=== PATIENT | female | born 1960 | race Caucasian/White ===

== ENCOUNTER 2022-12-14 14:55 | Outpatient (OUT) | payer BC, MEDICARE, SELFPAY ==
--- NOTE | 2022-12-14 17:23 | MISC_ITS ---
PROCEDURE DATE: ??12/14/2022 PROCEDURE:? Right biceps trigger point injection. PREOPERATIVE DIAGNOSIS:? Pain secondary to spasm right biceps.? Patient also suffers from rotator cuff tear involving the infraspinatus muscle on the right side.? POSTOPERATIVE DIAGNOSIS:? Pain secondary to spasm right biceps.? Patient also suffers from rotator cuff tear involving the infraspinatus muscle on the right side.? SOLUTION USED FOR INJECTION:? 2 mL of 2% lidocaine, 2 mL of 0.25% Marcaine, 10 mg of Kenalog, total of 5 mL, and 1 mL was used for the injection. IMMEDIATE COMPLICATIONS:? None. PROCEDURE:? After informed consent was obtained from the patient, placed in the supine position.? Skin overlying the area was prepped with alcohol.? A 25 gauge, 1 ? inch needle was inserted over the area of the right biceps muscle.? Needle tip advanced until there was a mild twitch response, at which point we injected 1 mL of solution.? No indication of intravascular or intraneural needle tip placement or injection was noted.? Post procedure, she reports reduction in her pain symptoms. MANA
== END 2022-12-14 14:56 ==
PROVIDERS: PCP Internal Medicine; Visit Provider Anesthesiology Pain Medicine
DX: M62.838 Other muscle spasm (principal); M75.101 Unspecified rotator cuff tear or rupture of right shoulder, not specified as traumatic
CPT/HCPCS: 20552

== ENCOUNTER 2023-03-16 13:32 | Outpatient (OUT) | payer BC, MEDICARE, SELFPAY ==
--- NOTE | 2023-03-16 13:36 | P.CN_ITS ---
Consult Note: HPI Data of Consult Patient: known to practice within the last 3 years Requesting Physician: Veronique Yu NP Primary Care Provider: John Mcdaniels DO Consult Narrative Reason for consult: f/u Narrative: Cate Obrien presents to office for evaluation of chronic back, neck, and right shoulder pain. Patient planning to have shoulder surgery 04/06. Today rating her pain 6/10 today. Has noticed increase in chronic pain and would like to discuss trialing percocet again. cc:: CC: Veronique Yu NP Review of Systems ROS Status of ROS 10 or more systems reviewed and unremarkable except as noted in history and below Musculoskeletal Reports: back pain, joint pain and limited range of motion Meds Home Medications and Allergies Home Medications Medication Instructions Recorded Confirmed Type bupropion HCl 150 mg tablet,12 hr 150 mg PO DAILY 12/15/22 12/15/22 History sustained-release (Wellbutrin SR) calcium PO .qd 12/15/22 History citalopram 20 mg tablet (Celexa) 20 mg PO DAILY 12/15/22 12/15/22 History hydrocodone 5 mg-acetaminophen 325 1 tab PO TID PRN pain 12/15/22 12/15/22 History mg tablet leflunomide 10 mg tablet (Arava) 10 mg PO DAILY 12/15/22 12/15/22 History lisinopril 5 mg tablet 5 mg PO DAILY 12/15/22 12/15/22 History metoprolol succinate 25 mg 25 mg PO DAILY 12/15/22 12/15/22 History tablet,extended release 24 hr (Toprol XL) pregabalin 150 mg capsule (Lyrica) 150 mg PO BID 12/15/22 12/15/22 History tizanidine 4 mg capsule (Zanaflex) 4 mg PO TID PRN muscle spasticity 12/15/22 12/15/22 History upadacitinib 15 mg tablet,extended 15 mg PO DAILY 12/15/22 12/15/22 History release 24 hr (Rinvoq) Allergies Allergy/AdvReac Type Severity Reaction Status Date / Time No Known Drug Allergies Allergy Verified 12/15/22 09:27 Exam Constitutional Documenting provider has reviewed patient's vital signs: yes Common normals: no apparent distress, average body habitus, oriented x3, healthy appearing, alert and well nourished General appearance: cooperative HENMT Common normals: normocephalic, hearing grossly normal bilaterally and moist oral mucous membranes Head and scalp: normocephalic Eye Common normals: PERRL Pupil: PERRL Neck & C-Spine Common normals: full ROM General: normal visual inspection Chest Common normals: inspection of chest normal Respiratory Common normals: normal respiratory effort, no retractions and no use of accessory muscles Back & Pelvis Lumbar spine/lower back: ROM limited, pain with ROM and straight leg raise negative bilaterally Other: positive facet loading bilaterally. predominately axial back pain without radiculopathy Extremity Right upper extremity: shoulder joint (pain, limited ROM. ) Neuro Common normals: oriented x3, CN's II-XII intact bilaterally, moves all extremities, no focal motor deficits, no sensory deficits noted and deep tendon reflexes 2+ bilaterally Sensorium/orientation: alert Gait (neuro): normal gait Motor exam: no movement abnormalities noted and strength abnormal (weakness 4/5 in RUE) Psych Common normals: mental status grossly normal, thought process normal, cooperative, affect normal, speech normal and activity/motor behavior normal Speech: normal speech Thought process: normal thought process Results Additional Findings Additional findings: I have checked an [place] report on this patient today and there are no aberrancies noted in the prescribing history.?? A drug screen was completed and reviewed within the last year, and if there has not been a drug screen completed we ordered one today to monitor higher risk, state monitored pain medication use. As part of providing excellent, safe, comprehensive care, the following was completed at our patient's visit: 1. A medication reconciliation and review to ensure accurate knowledge of current/active medications, including asking our patients to inform us about any [id number] medications or herbal remedies/nutritional supp lements/alternative remedies. 2. A review to specifically ensure our patients have had annual screening for: elevated body mass index (BMI), tobacco use, screening for depression, and screening for unhealthy alcohol use. When screening is concerning, patients are provided with education and the specific recommendation to discuss the concerning health issue and treatment options with their primary care provider. Assessment and Plan Assessment and Plan (1) Osteoarthritis of right shoulder: (2) Lumbar spondylosis: (3) Chronic, continuous use of opioids: Assessment and Plan: I have refilled the patient's opioid prescriptions at the above noted dose and schedule.? I feel these medications are improving the patient's quality of life and allow them to tolerate activities of daily living as well as participate in recreational activity.? The patient does not report intolerable side effects. The patient is NOT opioid naive and non-pharmacologic and non-opioid treatment has failed to significantly relieve the patient's pain and improve functionality. The patient has a diagnosis that is related to a somatic or visceral pain etiology. ? ?? I reviewed with the patient the potential risks and side effects with the use of? opioid medications including but not limited to respiratory depression,? sedation, and even . I verified the patient has access to naloxone should? these effects occur. I advised the patient to avoid the use of any other? sedation substances including alcohol, THC, and benzodiazepines while? taking opioid medications due to the risk of compounding side effects and? detrimental outcomes. I reviewed the [employer], pain treatment agreement, urine? drug screen, and opioid start talking forms. The patient was advised to let? their family know they had Naloxone in case they would need to administer? the medication.? ?? A drug screen was completed within the last year, and no aberrancies were noted regarding their use of controlled substances. The patient understands they are subject to the terms and conditions of the pain contract that they have signed. ? ?? I have checked an [place] report on this patient today and there are no aberrancies noted in the prescribing history.? NO side effects from current medication regimen, feels like she is no longer benefiting from norco 5-325 TID as well as she used to. Plan opioid rotation to oxycodone-acetaminophen 5-325mg TID PRN pain for 3 week fill to get her to shoulder surgery stephanie discussed and prescribed shoulder surgery 04/[address] Barron, he is to manage post op care continue lyrica and zanaflex, will consider adjusting lyrica if chronic pain not controlled by opioid rotation f/u 2 months
== END 2023-03-16 13:33 | disposition home or self-care (01) ==
PROVIDERS: PCP Internal Medicine; Visit Provider Nurse Practitioner
DX: M47.816 Spondylosis without myelopathy or radiculopathy, lumbar region (principal); M19.011 Primary osteoarthritis, right shoulder; Z79.891 Long term (current) use of opiate analgesic
CPT/HCPCS: G0463

== ENCOUNTER 2023-05-18 07:49 | Outpatient (OUT) | payer BC, MEDICARE, SELFPAY ==
--- NOTE | 2023-05-18 08:04 | PM.CN ---
Consult Note: HPI Data of Consult Patient: known to practice within the last 3 years Requesting Physician: Veronique Yu NP Primary Care Provider: John Mcdaniels DO Consult Narrative Reason for consult: f/u Narrative: Radha Obrien a pleasant 62 year old female presents for evaluation and management of low back pain. Today rating pain 5/10 in low back without radiculopathy. Patient has had >1 year pain relief and functional improvement from lumbar RFAs in 2019. Patient recently had right shoulder surgery and is doing well, Dr Barron managing post operative pain at this time. Patient would like to repeat lumbar thermal RFA in the near future. cc:: CC: Veronique Yu NP Review of Systems ROS Status of ROS 10 or more systems reviewed and unremarkable except as noted in history and below Musculoskeletal Reports: back pain Meds Home Medications and Allergies Home Medications Medication Instructions Recorded Confirmed Type bupropion HCl 150 mg tablet,12 hr 150 mg PO DAILY 12/15/22 12/15/22 History sustained-release (Wellbutrin SR) calcium PO .qd 12/15/22 History citalopram 20 mg tablet (Celexa) 20 mg PO DAILY 12/15/22 12/15/22 History hydrocodone 5 mg-acetaminophen 325 1 tab PO TID PRN pain 12/15/22 12/15/22 History mg tablet leflunomide 10 mg tablet (Arava) 10 mg PO DAILY 12/15/22 12/15/22 History lisinopril 5 mg tablet 5 mg PO DAILY 12/15/22 12/15/22 History metoprolol succinate 25 mg 25 mg PO DAILY 12/15/22 12/15/22 History tablet,extended release 24 hr (Toprol XL) pregabalin 150 mg capsule (Lyrica) 150 mg PO BID 12/15/22 12/15/22 History tizanidine 4 mg capsule (Zanaflex) 4 mg PO TID PRN muscle spasticity 12/15/22 12/15/22 History upadacitinib 15 mg tablet,extended 15 mg PO DAILY 12/15/22 12/15/22 History release 24 hr (Rinvoq) naloxone 4 mg/actuation nasal 4 mg intranasal Q3M PRN opioid 03/16/23 Rx spray (Narcan) overdose #2 ea oxycodone-acetaminophen 5 mg-325 1 tab PO TID PRN pain #63 tabs 03/16/23 Rx mg tablet (Percocet) oxycodone-acetaminophen 5 mg-325 1 tab PO TID PRN pain #63 tabs 03/16/23 Rx mg tablet (Percocet) pregabalin 150 mg capsule 150 mg PO BID #180 caps 03/31/23 Rx Allergies Allergy/AdvReac Type Severity Reaction Status Date / Time No Known Drug Allergies Allergy Verified 12/15/22 09:27 Exam Constitutional Documenting provider has reviewed patient's vital signs: yes Common normals: no apparent distress, oriented x3, healthy appearing, alert and well nourished General appearance: cooperative HENMT Common normals: normocephalic, hearing grossly normal bilaterally and moist oral mucous membranes Head and scalp: normocephalic Eye Common normals: PERRL Pupil: PERRL Neck & C-Spine Common normals: full ROM General: normal visual inspection Chest Common normals: inspection of chest normal Respiratory Common normals: normal respiratory effort, no retractions and no use of accessory muscles Back & Pelvis Lumbar spine/lower back: ROM limited, pain with ROM and straight leg raise negative bilaterally Other: positive facet loading bilaterally. predominately axial back pain without radiculopathy Neuro Common normals: oriented x3, CN's II-XII intact bilaterally, moves all extremities, no focal motor deficits, no sensory deficits noted and deep tendon reflexes 2+ bilaterally Sensorium/orientation: alert Gait (neuro): normal gait Motor exam: strength 5/5 throughout and no movement abnormalities noted Psych Common normals: mental status grossly normal, thought process normal, cooperative, affect normal, speech normal and activity/motor behavior normal Speech: normal speech Thought process: normal thought process Results Additional Findings Additional findings: I have checked an [place] report on this patient today and there are no aberrancies noted in the prescribing history.?? A drug screen was completed and reviewed within the last year, and if there has not been a drug screen completed we ordered one today to monitor higher risk, state monitored pain medication use. As part of providing excellent, safe, comprehensive care, the following was completed at our patient's visit: 1. A medication reconciliation and review to ensure accurate knowledge of current/active medications, including asking our patients to inform us about any [id number] medications or herbal remedies/nutritional supplements/alternative remedies. 2. A review to specifically ensure our patients have had annual screening for: elevated body mass index (BMI), tobacco use, screening for depression, and screening for unhealthy alcohol use. When screening is concerning, patients are provided with education and the specific recommendation to discuss the concerning health issue and treatment options with their primary care provider. Assessment and Plan Assessment and Plan (1) Lumbar spondylosis: Assessment and Plan: The patient has had over 3 months of moderate to severe low back pain with functional impairment and inadequate response to conservative care including NSAIDS (unless there are contraindication such as concurrent blood thinners), multiple oral or topical pain medications, and home exercise program/physical therapy.? Patient has completed >6 weeks of guided home exercise program and/or formal physical therapy program without relief of their symptoms.? I have reviewed the imaging of the lumbar spine and no red flags were identified.? The imaging reveals radiographic findings consistent with lumbar spondylosis We discussed the risks and benefits of the procedure with the patient, and we are NOT planning on using sedation as outlined in the guidelines from Medicare unless there is a documented reason that sedation would be strongly recommended.?? ?The procedure will be completed with fluoroscopic guidance.? (2) Chronic, continuous use of opioids: Assessment and Plan: surgeon currently managing post op pain Plan bilateral L4-5 L5-S1 mbb X2 under fluoroscopy working towards thermal RFA (patient will call to schedule) continue current medication regimen, tolerating well without side effects we will resume opioid management after cleared by surgeon f/u 1 week after each test block to evaluate effectiveness
== END 2023-05-18 07:50 | disposition home or self-care (01) ==
LOC: PM 07:49
PROVIDERS: PCP Internal Medicine; Visit Provider Nurse Practitioner
DX: M47.816 Spondylosis without myelopathy or radiculopathy, lumbar region (principal); Z79.891 Long term (current) use of opiate analgesic
CPT/HCPCS: G0463

== ENCOUNTER 2023-06-14 15:05 | Outpatient (OUT) | payer BC, MEDICARE, SELFPAY ==
[2023-06-14 16:50] LABS: Alanine Aminotransferase 19 U/L (14-59); Albumin Level 3.7 g/dL (3.4-5.0); Alkaline Phosphatase 63 U/L (46-116); Aspartate Amino Transferase 16 U/L (15-37); Bilirubin Total 0.4 mg/dL (0.2-1.0); Calcium 9.1 mg/dL (8.5-10.1); Carbon Dioxide 22.6 mmol/L (21.0-32.0); Chloride 106 mmol/L (98-107); Estimated GFR (African America >60 (>=60); Estimated GFR (Non-African Ame 56 (>=60); Globulin 3.8 g/dL; Glucose 106 mg/dL (74-106); Potassium 3.6 mmol/L (3.5-5.1); Sodium 141 mmol/L (136-145); Total Protein 7.5 g/dL (6.4-8.2)
[2023-06-14 16:58] LABS: Basophils Percent Auto 0.6 % (0.2-2.0); Eosinophils Absolute Auto 0.1 10^3/uL (0.0-0.7); Eosinophils Percent Auto 1.4 % (0.9-7.0); Erythrocyte Sedimentation Rate 46 mm/hr (<=30); Hematocrit 37.5 % (36.0-48.0); Hemoglobin 12.1 g/dL (12.0-16.0); Immature Granulocytes Abs Auto 0.04 10^3/uL (0.00-0.03); Immature Granulocytes Pct Auto 0.6 % (0.0-0.5); Lymphocytes Absolute Auto 1.6 10^3/uL (1.2-3.8); Mean Corpuscular HGB Conc 32.3 g/dL (29.9-35.2); Mean Corpuscular Hemoglobin 31.6 pg (26.7-34.0); Mean Corpuscular Volume 97.9 fL (81.0-99.0); Mean Platelet Volume 9.5 fL (9.5-13.5); Monocytes Absolute Auto 0.8 10^3/uL (0.3-0.8); Monocytes Percent Auto 10.9 % (1.7-12.0); Neutrophils Absolute Auto 4.7 10^3/uL (1.4-6.5); Neutrophils Percent Auto 64.5 % (43.0-75.0); Platelet Count 208 10^3/uL (150-450); Red Blood Count 3.83 10^6/uL (4.20-5.40); Red Cell Distribution Width 13.2 % (11.0-15.0); White Blood Count 7.2 10^3/uL (4.0-11.0)
== END 2023-06-14 15:06 | disposition home or self-care (01) ==
PROVIDERS: PCP Internal Medicine; Visit Provider Internal Medicine Rheumatology
DX: M19.90 Unspecified osteoarthritis, unspecified site (principal); M06.9 Rheumatoid arthritis, unspecified; Z79.899 Other long term (current) drug therapy
CPT/HCPCS: 36415; 80053; 85025; 85652

== ENCOUNTER 2023-06-14 15:10 | Outpatient (OUT) | payer BC, MEDICARE, SELFPAY ==
--- NOTE | 2023-06-14 | CONS_ITS ---
PROCEDURE NOTE PROCEDURE DATE: ??06/14/2023 PROCEDURE:? Left AC joint injection. PREOPERATIVE DIAGNOSIS:? Pain secondary to left shoulder pain secondary to AC joint arthrosis. POSTOPERATIVE DIAGNOSIS:? Pain secondary to left shoulder pain secondary to AC joint arthrosis. SOLUTION USED FOR INJECTION:? 2 mL of 2% lidocaine, 2 mL of 0.25% Marcaine and 20 mg of Kenalog. IMMEDIATE COMPLICATIONS:? None. PROCEDURE:? After informed consent was obtained, the patient placed in the sitting position.? Skin overlying the area was prepped with alcohol.? A 25 gauge 1 ?? needle was inserted into the left AC joint.? After encountering the same, we injected 2 mL of solution.? No indication of intravascular or intraneural needle tip placement was noted.? No evidence of post procedure pneumothorax was noted.? She tolerated procedure well with no complications.? Patient reports reduction in pain symptoms post procedurally. MANA
== END 2023-06-14 15:11 | disposition home or self-care (01) ==
LOC: PM 15:18
PROVIDERS: PCP Internal Medicine; Visit Provider Anesthesiology Pain Medicine
DX: M19.90 Unspecified osteoarthritis, unspecified site (principal); M06.9 Rheumatoid arthritis, unspecified; Z79.899 Other long term (current) drug therapy; M25.512 Pain in left shoulder
CPT/HCPCS: 20610; 36415; 80053; 85025; 85652

== ENCOUNTER 2023-08-02 14:53 | Outpatient (OUT) | payer BC, MEDICARE, SELFPAY ==
--- NOTE | 2023-08-02 | CONS_ITS ---
PROCEDURE DATE: 08/02/2023 PROCEDURE: Left AC joint injection performed in the office. PREOPERATIVE DIAGNOSIS: Pain secondary to left AC joint osteoarthrosis complicated by left biceps and left pectoralis major myofascial spasm. POSTOPERATIVE DIAGNOSIS: Pain secondary to left AC joint osteoarthrosis complicated by left biceps and left pectoralis major myofascial spasm. SOLUTION USED FOR INJECTION: 2 mL of 2% lidocaine, 2 mL of 0.25% Marcaine and 40 mg of Kenalog, total of 5 mL, and 1 mL used for the injection at the site. IMMEDIATE COMPLICATIONS: None. PROCEDURE: After informed consent was obtained from the patient, placed in the sitting position. Skin overlying the area was prepped with alcohol. A 25 gauge, 1 ?? needle was inserted into the left AC joint. Needle tip advanced until joint itself was encountered, at which point we injected 1 mL of solution. No indication of intravascular or intraneural needle tip placement or injection, and no evidence of post-op pneumothorax was noted. Post procedure, needle was removed. She reports a marked reduction in pain symptoms post procedurally. Will see the patient back in the office in 4-6 weeks? time or sooner if needed. MANA
--- OUTSIDE RECORDS SUMMARY | 2023-08-02 15:00 | XMS_ITS | CCD ---
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 Routine general medical examination at health care facility; Translations: [Routine general medical examination at health care facility] Onset: 06-24-2014 Unclassified (1 source) Body mass index 27.0-27.9, adult; Translations: [Body mass index 27.0-27.9, adult] Onset: 05-13-2017 Results Test Name Value Interpretation Reference Range Facility IntraOperative Documentson 1 IntraOperative Documents [id number]# 1.00CD:127 Normal [facility] Auto Diffon 04-07-2023 Basophils/100 WBC (Bld) 0.2 % Normal 0.0-2.0 [facility] Comment on above: Order Comment: Order Added by Discern Expert. Performed By: #### 2 602245, 9976352, 6541949, 0456873, 78324200, 1985355 ####[facility] [address] [place] [address] Basophils/Leukocytes Auto (Bld) [Pure # fraction] 0.0 E9/L Normal 0.0-0.2 [facility] Comment on above: Order Comment: Order Added by Discern Expert. Performed By: #### 2 217802, 8404672, 0379925, 2447463, 59176559, 1629167 ####[address] [place] [address] Eosinophils/100 WBC (Bld) 0.0 % Normal 0.0-8.0 [facility] Comment on above: Order Comment: Order Added by Discern Expert. Performed By: #### 2 333744, 3120438, 7707958, 3632370, 51129405, 3157902 ####[address] [address] Eosinophils/Leukocyte s Auto (Bld) [Pure # fraction] 0.0 E9/L Normal 0.0-0.5 [facility] Comment on above: Order Comment: Order Added by Discern Expert. Performed By: #### 2 805581, 1783942, 3880893, 1621399, 96034793, 9495796 ####[address] [address] Lymphocytes/100 WBC (Bld) 7.9 % Low 14.0-50.0 [facility] Comment on above: Order Comment: Order Added by Discern Expert. Performed By: #### 2 094978, 3650616, 8394982, 6799423, 38184764, 1999512 ####[address] [place] [address] Lymphocytes/Leukocyte s Auto (Bld) [Pure # fraction] 0.8 E9/L Low 1.0-4.0 [facility] Comment on above: Order Comment: Order Added by Discern Expert. Performed By: #### 2 461003, 7981640, 3409404, 7934534, 37007937, 7864083 ####[address] [address] Monocytes/100 WBC (Bld) 14.0 % Normal 4.0-14.0 [facility] Comment on above: Order Comment: Order Added by Discern Expert. Performed By: #### 2 986406, 1489558, 1015118, 2252931, 80608731, 8982087 ####[facility] [address] [place] [address] Monocytes/Leukocytes Auto (Bld) [Pure # fraction] 1.3 E9/L High 0.2-1.0 [facility] Comment on above: Order Comment: Order Added by Discern Expert. Performed By: #### 2 116459, 6098847, 8413857, 2697469, 32968487, 0348478 ####[address] [place] [address] Neutrophils/100 WBC (Bld) 77.9 % High 36.0-75.0 [facility] Comment on above: Order Comment: Order Added by Discern Expert. Performed By: #### 2 580184, 7687522, 4419842, 0208463, 96434068, 9639510 ####[facility] [address] [place] [address] Neutrophils/Leukocyte s Auto (Bld) [Pure # fraction] 7.5 E9/L Normal 2.0-7.5 [facility] Comment on above: Order Comment: Order Added by Discern Expert. Performed By: #### 2 441438, 6280337, 2348510, 8493371, 65586701, 4513416 ####[facility] [address] [place] [address] BUNon 04-07-2023 Urea nitrogen [Mass/Vol] 20 mg/dL Normal 5-21 [facility] Comment on above: Performed By: #### 2 695660, 5836626, 1175281, 9532027, 32708173, 4028490 ####[facility] [address] [place] [address] CBC w/ Auto Diffon Erythrocyte distribution width (RBC) [Ratio] 14.6 % High 10.9-14.2 [facility] Comment on above: Performed By: #### 2 536698, 5019533, 2224751, 6056747, 08838537, 8493767 ####[address] [address] Hematocrit (Bld) [Volume fraction] 29.7 % Low 34.0-46.0 [facility] Comment on above: Performed By: #### 2 418152, 0383290, 6611892, 6700842, 58778147, 6617146 ####[address] [address] Hemoglobin (Bld) [Mass/Vol] 10.0 g/dL Low 12.0-16.0 [facility] Comment on above: Performed By: #### 2 652070, 6619587, 1261211, 1624479, 62649435, 5493162 ####[address] [address] MCH (RBC) [Entitic mass] 32.5 pg Normal 27.0-34.0 [facility] Comment on above: Performed By: #### 2 891185, 0538713, 2973734, 5016980, 22036610, 9697451 ####[address] [address] MCHC (RBC) [Mass/Vol] 33.6 g/dL Normal 31.4-36.0 [facility] Comment on above: Performed By: #### 2 224004, 4772587, 8681428, 2012176, 73810885, 8208015 ####[address] [address] MCV (RBC) [Entitic vol] 96.7 fL Normal 80.0-100.0 [facility] Comment on above: Performed By: #### 2 725709, 7842700, 1471466, 6471590, 83162832, 6203006 ####[address] [address] Platelet mean volume (Bld) [Entitic vol] 7.1 fL Normal 6.4-10.8 [facility] Comment on above: Performed By: #### 2 928993, 7373307, 6719548, 4984307, 47586487, 9596463 ####[facility] [address] [place] [address] Platelets (Bld) [#/Vol] 215.0 E9/L Normal 150.0-500.0 [facility] Comment on above: Performed By: #### 2 418727, 8819614, 5036524, 5725680, 58054345, 9501026 ####[facility] [address] [place] [address] RBC (Bld) [#/Vol] 3.1 E12/L Low 4.3-5.9 [facility] Comment on above: Performed By: #### 2 610790, 5847438, 9394940, 7992362, 97184344, 6639694 ####[facility] [address] [place] [address] WBC corrected for nucl RBC Auto (Bld) [#/Vol] 9.6 E9/L Normal 4.0-11.0 [facility] Comment on above: Performed By: #### 2 912383, 6068214, 3041957, 9888847, 64231580, 1245838 ####[facility] [address] [place] [address] CHEMISTRYOrdered By: SYSTEM SYSTEM on 04-07-2023 Anion gap [Moles/Vol] 6 mmol/L Normal 6 - 16 mEq/L [facility] Chloride [Moles/Vol] 118 mmol/L High 101 - 1 11 mmol/L [facility] CO2 [Moles/Vol] 23 mmol/L Normal 21 - 31 mmol/L [facility] Creatinine [Mass/Vol] 0.9 mg/dL Normal 0.5 - 1.3 mg/dL [facility] GFR/1.73 sq M.predicted among non-blacks MDRD (S/P/Bld) [Vol rate/Area] 72 mL/min/1.73 m2 Normal >=59mL/min/1 .73 m2 [facility] Comment on above: Interpretive Data: C hronic kidney disease could be indicated at eGFR's of less than 60 mL/min/1.73m2. Kidney failure is indicated at less than 15 mL/min/1.73m2. Potassium [Moles/Vol] 4.0 mmol/L Normal 3.5 - 5.3 mmol/L [facility] Sodium [Moles/Vol] 143 mmol/L Normal 135 - 145 mmol/L [facility] Urea nitrogen [Mass/Vol] 20 mg/dL Normal 5 - 21 mg/dL [facility]isol Consent for Anesthesiaon Consent for Anesthesia [id number]#1 .00CD:127 Normal [facility] Creatinineon 04-07-2023 Creatinine [Mass/Vol] 0.9 mg/dL Normal 0.5-1.3 [facility] Comment on above: Performed By: #### 2 452887, 3331005, 4557503, 0002755, 86659673, 8022061 ####[facility] [address] [place] [address] Discharge Instructionson Discharge Instructions [id number]# 1.00CD:127 Normal [facility] Discharge Note-Nursingon Discharge Note-Nursing RADHA ZAIDI :1960 Visit Date:04/06/2023 Inpatient Discharge Instructions Your Care Team Admitting Physician - Jordan Yuan DO Referring Physician - Jordan Yuan DO Reason for Your Visit OA RIGHT SHOULDER Your Diagnosis Complete rotator cuff tear or rupture of right shoulder, not specified as traumatic Tests Performed ABO/Rh Antibody Screen Automated Diff BUN CBC w/ Auto Diff Creatinine eGFR Lytes XR Shoulder Complete Right This Is Your Medications List acetaminophen-oxycodo ne (Percocet 5 mg-325 mg oral tablet) buPROPion (Wellbutrin XL 300 mg/24 hours Tab-ER) celecoxib (CeleBREX 100 mg Cap) cephalexin (Keflex 500 mg Cap) docusate (Colace 100 mg Cap) leflunomide (Arava 10 mg oral tablet) lisinopril (lisinopril 5 mg Tab) metoprolol (metoprolol 100 mg ER Tab) pregabalin (Lyrica 150 mg Cap) tizanidine (Zanaflex 4 mg Tab) upadacitinib (Rinvoq 15 mg oral tablet, extended release) Procedure History 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 Discharge Vitals Temperature (Oral) 36.6 ?C Heart Rate (Monitored) 72 Respiratory Rate 16 Blood Pressure 125/75 What to do next Instructions From Your Doctor Event Name Event Result Pending Diagnostic Test Results None Pharmacy Information [facility] New Follow Up Appointments after Discharge Follow Up with Jordan Yuan When: Where: [address] [place] [address]- Business (1) Follow Up with JOHN ASHBY When: In 0 days Where: [address] [facility], [place] [address]- Business (1) Medications What How Much When Instructions Next Dose Changed acetaminophen-oxycodo ne (Percocet 5 mg-325 mg oral tablet) See instructions 1-2 tab(s) Oral q4hr Pickup at [facility]/pharmacy #[id number] Next dose due after 10am Unchanged buPROPion (Wellbutrin XL 300 mg/ 24 hours Tab-ER) 1 Tablets By Mouth 2 times a day 04/07/23 @ 9pm Unchanged celecoxib (CeleBREX 100 mg Cap) 1 Capsules By Mouth 2 times a day as needed for for pain Pickup at [facility]/pharmacy #6177 04/07/23 @ 9pm Unchanged cephalexin (Keflex 500 mg Cap) 1 Capsules By Mouth Every 8 hours Duration: 7 Days Pickup at [facility]/pharmacy #6177 04/07/23 @ 2pm and bedtime Unchanged docusate (Colace 100 mg Cap) 1 Capsules By Mouth 2 times a day as needed for for constipation Pickup at [facility]/pharmacy #6177 04/07/23 @ 9pm Unchanged leflunomide (Arava 10 mg oral tablet) 1 Tablets By Mouth Every day 04/08/23 Unchanged lisinopril (lisinopril 5 mg Tab) 1 Tablets By Mouth Every day 04/08/23 Unchanged metoprolol (metoprolol 100 mg ER Tab) 1 Tablets By Mouth At bedtime 04/07/23 @ 9pm Unchanged pregabalin (Lyrica 150 mg Cap) 1 Capsules By Mouth 2 times a day 04/07/23 @ 9pm Unchanged tizanidine (Zanaflex 4 mg Tab) See instructions 1 tab(s) Oral in AM 3 tabs at bedtime 04/07/23 @ 9pm Unchanged upadacitinib (Rinvoq 15 mg oral tablet, extended release) 1 Tablets By Mouth Every day 04/08/23 @ 9am Pharmacy Information [facility]/pharmacy #[id number]: [address], [place] [id number] [phone] Test Results CBC BMP WBC: 9.6 E9/L (04/07/23 05:07:00) BUN: 20 mg/dL (04/07/23 05:07:00) RBC: 3.1 E12/L Low (04/07/23 05:07:00) Creatinine: 0.9 mg/dL (04/07/23 05:07:00) HGB: 10 gm/dL Low (04/07/23 05:07:00) Sodium Lvl: 143 mmol/L (04/07/23 05:07:00) Hct: 29.7 % Low (04/07/23 05:07:00) Potassium Lvl: 4 mmol/L (04/07/23 05:07:00) MCV: 96.7 fL (04/07/23 05:07:00) Chloride: 118 mmol/L High (04/07/23 05:07:00) MCH: 32.5 pg (04/07/23 05:07:00) CO2: 23 mmol/L (04/07/23 05:07:00) MCHC: 33.6 gm/dL (04/07/23 05:07:00) AGAP: 6 mEq/L (04/07/23 05:07:00) RDW: 14.6 % High (04/07/23 05:07:00) Platelet: 215 E9/L (04/07/23 05:07:00) MPV: 7.1 fL (04/07/23 05:07:00) Allergies No Known Allergies Devices Implanted/Removed This Visit Notice: You have devices implanted this visit that may not be MRI compatible. Implanted SHOULDER TOTAL ARTHROPLASTY Shoulder R [employer] modular glenoid system, Augmented baseplate 24 mm, 10 degree Augment, Standard 04/06/2023 Modular Post for Augmented MGS Baseplate, 20 mm 04/06/2023 [employer] Modular glenoid System, Peripheral Screw, Non-Locking, 4.5 x 28 mm, Shoulder Implant 04/06/2023 [employer] Modular Glenoid System, peripheral Screw, Non-Locking, 4.5 x 32 mm Shoulder Implant 04/06/2023 [employer] Modular Glenoid System, Peripheral Screw, Non-Locking, 5.5 x 20 mm, Shoulder Implant (2), 04/06/2023 [employer] Modular Glenoid System, Glenosphere, 36 +4 Lateralized/ 24, Shoulder Implant 04/06/2023 [employer] revers [place] humeral Stem Size 9, Shoulder Implant 04/06/2023 [employer] SutureCap, 36 neutral, shoulder Implant 04/06/2023 [employer] Humeral Insert, small, 36, +6, Shoulder (more content not included)... Normal [facility] HEMATOLOGYOrdered By: SYSTEM SYSTEM on 04-07-2023 Basophils/100 WBC (Bld) 0.2 % Normal 0.0 - 2.0 % [facility] HemeAutoSS Basophils/Leukocytes Auto (Bld) [Pure # fraction] 0.0 E9/L Normal 0.0 - 0.2 E9/L [facility] HemeAutoSS Eosinophils/100 WBC (Bld) 0.0 % Normal 0.0 - 8.0 % [facility] HemeAutoSS Eosinophils/Leukocyte s Auto (Bld) [Pure # fraction] 0.0 E9/L Normal 0.0 - 0.5 E9/L [facility] HemeAutoSS Lymphocytes/100 WBC (Bld) 7.9 % Low 14.0 - 50.0 % [facility] HemeAutoSS Lymphocytes/Leukocyte s Auto (Bld) [Pure # fraction] 0.8 E9/L Low 1.0 - 4.0 E9/L [facility] HemeAutoSS Monocytes/100 WBC (Bld) 14.0 % Normal 4.0 - 14.0 % [facility] HemeAutoSS Monocytes/Leukocytes Auto (Bld) [Pure # fraction] 1.3 E9/L High 0.2 - 1.0 E9/L [facility] HemeAutoSS Neutrophils/100 WBC (Bld) 77.9 % High 36.0 - 75.0 % [facility] HemeAutoSS Neutrophils/Leukocyte s Auto (Bld) [Pure # fraction] 7.5 E9/L Normal 2.0 - 7.5 E9/L [facility] HemeAutoSS HEMATOLOGYOrdered By: Jordan Hall on 04-07-2023 Erythrocyte distribution width (RBC) [Ratio] 14.6 % High 10.9 - 14.2 % [facility] HemeAutoSS Hematocrit (Bld) [Volume fraction] 29.7 % Low 34.0 - 46.0 % [facility] HemeAutoSS Hemoglobin (Bld) [Mass/Vol] 10.0 g/dL Low 12.0 - 16.0 gm/dL [facility] HemeAutoSS MCH (RBC) [Entitic mass] 32.5 pg Normal 27.0 - 34.0 pg [facility] HemeAutoSS MCHC (RBC) [Mass/Vol] 33.6 g/dL Normal 31.4 - 36.0 gm/dL [facility] HemeAutoSS MCV (RBC) [Entitic vol] 96.7 fL Normal 80.0 - 100.0 fL [facility] HemeAutoSS Platelet mean volume (Bld) [Entitic vol] 7.1 fL Normal 6.4 - 10.8 fL [facility] HemeAutoSS Platelets (Bld) [#/Vol] 215.0 E9/L Normal 150.0 - 500.0 E9/L [facility] HemeAutoSS RBC (Bld) [#/Vol] 3.1 E12/L Low 4.3 - 5.9 E12/L [facility] HemeAutoSS WBC corrected for nucl RBC Auto (Bld) [#/Vol] 9.6 E9/L Normal 4.0 - 11.0 E9/L [facility] HemeAutoSS Inpatient Clinical Summaryon 04-07-2023 Inpatient Clinical Summary [address] [address] Clinical Summary Person Information: Name: SHIRA ZAIDISHEYLA Lockett Age: 62 Years : 1960 Sex: Female PCP: JOHN ASHBY DO Marital Status: Phone: [phone] Race: White Ethnicity: Non- or Language: Bahamian Visit Id: Visit Reason: OA RIGHT SHOULDER Speciality: Acuity: Enc Type: Observation Med Service: Medical Arrival: 04/06/2023 06:09:55 Discharge: Dispo Type: Address: [address] [place] [address] [place] [id number] Provider Notes: Patient: RADHA ZAIDI Age: 62 years Sex: Female : 1960 Associated Diagnoses: None Author: Jordan Yuan DO Discharge Information Discharge Summary Information: Admit Date/Time: 04/06/23 06:09 Discharge Date/Time: 04/07/23 07:41 Admitting Physician: Jordan Yuan DO Referring Physician for Admission: Jordan Yuan DO Consulting Physicians: none Admitting Diagnoses: massive cuff tear right shoulder procedure: R reverse TSA discharge disposition: home Discharge Diagnoses: Complete rotator cuff tear or rupture of right shoulder, not specified as traumatic Prescription and Home Meds: acetaminophen-oxycodo ne (Percocet 5 mg-325 mg oral tablet) See Instructions, 1-2 tab(s) Oral q4hr, 40 tab(s), 0 Refill(s) buPROPion (Wellbutrin XL 300 mg/24 hours Tab-ER) 300 mg, 1 tab(s), Oral, BID, 0 Refill(s) celecoxib (CeleBREX 100 mg Cap) 100 mg, 1 cap(s), Oral, BID, PRN: for pain, 60 cap(s), 0 Refill(s) cephalexin (Keflex 500 mg Cap) 500 mg, 1 cap(s), Oral, q8hr, for 7 day(s), 21 cap(s), 0 Refill(s) docusate (Colace 100 mg Cap) 100 mg, 1 cap(s), Oral, BID, PRN: for constipation, 20 cap(s), 0 Refill(s) leflunomide (Arava 10 mg oral tablet) 10 mg, 1 tab(s), Oral, Daily, 0 Refill(s) lisinopril (lisinopril 5 mg Tab) 5 mg, 1 tab(s), Oral, Daily, 0 Refill(s) metoprolol (metoprolol 100 mg ER Tab) 100 mg, 1 tab(s), Oral, Bedtime, 0 Refill(s) pregabalin (Lyrica 150 mg Cap) 150 mg, 1 cap(s), Oral, BID, 60 cap(s), 0 Refill(s) tizanidine (Zanaflex 4 mg Tab) See Instructions, 1 tab(s) Oral in AM 3 tabs at bedtime, 0 Refill(s) upadacitinib (Rinvoq 15 mg oral tablet, extended release) 15 mg, 1 tab(s), Oral, Daily, 0 Refill(s) Diagnosis: Complete rotator cuff tear or rupture of right shoulder, not specified as traumatic Problems No Problems Documented Smoking Status: Functional Status: Sensory Deficits: History of Falls: Mobility Assistance Prior to Admission: ADLs: Minimal assistance Current Level of Assistance for Self-Care/Mobility: Cognitive Status: Allergies No Known Allergies Measurements: Height: Weight: Blood Pressure: 125 mmHg / 75 mmHg BMI: Procedures Total shoulder replacement (04/06/2023) Immunizations No Immunizations Documented This Visit Final Med List: acetaminophen-oxycodo ne (Percocet 5 mg-325 mg oral tablet) 1-2 tab(s) Oral q4hr. Refills: 0. buPROPion (Wellbutrin XL 300 mg/24 hours Tab-ER) 1 Tablets By Mouth 2 times a day. celecoxib (CeleBREX 100 mg Cap) 1 Capsules By Mouth 2 times a day as needed for pain. Refills: 0. cephalexin (Keflex 500 mg Cap) 1 Capsules By Mouth every 8 hours for 7 Days. Refills: 0. docusate (Colace 100 mg Cap) 1 Capsules By Mouth 2 times a day as needed for constipation. Refills: 0. leflunomide (Arava 10 mg oral tablet) 1 Tablets By Mouth every day. lisinopril (lisinopril 5 mg Tab) 1 Tablets By Mouth every day. metoprolol (metoprolol 100 mg ER Tab) 1 Tablets By Mouth at bedtime. pregabalin (Lyrica 150 mg Cap) 1 Capsules By Mouth 2 times a day. tizanidine (Zanaflex 4 mg Tab) 1 tab(s) Oral in AM 3 tabs at bedtime. upadacitinib (Rinvoq 15 mg oral tablet, extended release) 1 Tablets By Mouth every day. Care Team Members: Attending Physician: Jordan Yuan DO Consulting Physician: Referring Physician: Jordan Yuan DO Follow up: With: Address: When: [place] [address] Business (1) 04/19/2023 2:15 PM With: Address: When: JOHN ASHBY [address] [place], [place] [id number] Business (1) Patient Education Information: Levy Yuan. - Shoulder Replacement (Custom) [facility] Inpatient Patient Summaryon 04-07-2023 Inpatient Patient Summary [address] [address] Patient Discharge Instructions PERSON INFORMATION Name: RADHA ZAIDI Date of : 1960 Current Date: 04/07/2023 08:46:37 PHYSICIANS Admitting Physician: Jordan Yuan DO Primary Care Physician: JOHN ASHBY DO PCP Comment: Discharge Diagnosis: Complete rotator cuff tear or rupture of right shoulder, not specified as traumatic Condition at Discharge: RADHA ZAIDI has been given the following list of follow-up instructions, prescriptions, and patient education materials: PATIENT FOLLOW-UP INFORMATION Diet: Discharge Activity: Discharge Restrictions: Wound Care Instructions: Remove Your Dressing In Days Call Your Doctor For: IF UNABLE TO CONTACT YOUR PHYSICIAN AND YOU FEEL IT IS AN EMERGENCY, GO TO THE NEAREST EMERGENCY ROOM OR CALL 911 Home Treatment: Devices/Equipment: Special Services: Additional Instructions: Primary Care Physician to provide the following pending test results: None Follow up: With: Address: When: [place] [address] Business (1) 04/19/2023 2:15 PM With: Address: When: JOHN ASHBY [address] [place] [id number] Business (1) In the event that this physician does not participate in your insurance network, please consult with your insurance company to find a nearby participating provider. Comment: DYAN Florentino CHERYLL J, have received the attached patient education materials/instruction s and have verbalized understanding: Patient Signature Date Clinican/Nurse Signature Date HERE ARE THE MEDICATION CHANGES THAT OCCURRED DURING YOUR HOSPITAL STAY Medications to Continue Taking That Have Changed [facility]/pharmacy #[id number], [address] [place], [place] [id number], [phone] START: acetaminophen-oxycodo ne (Percocet 5 mg-325 mg oral tablet) 1-2 tab(s) Oral q4hr. Refills: 0. Last Dose: ____Next Dose: ____ STOP: acetaminophen-oxycodo ne (Percocet 5 mg-325 mg oral tablet) 1 Tablets By Mouth 3 times a day. Medications to Continue with No Changes [facility]/pharmacy #6177, [address] [place], [place] [id number], [phone] celecoxib (CeleBREX 100 mg Cap) 1 Capsules By Mouth 2 times a day as needed for pain. Refills: 0. Last Dose: ____Next Dose: ____ cephalexin (Keflex 500 mg Cap) 1 Capsules By Mouth every 8 hours for 7 Days. Refills: 0. Last Dose: ____Next Dose: ____ docusate (Colace 100 mg Cap) 1 Capsules By Mouth 2 times a day as needed for constipation. Refills: 0. Last Dose: ____Next Dose: ____ Other Medications buPROPion (Wellbutrin XL 300 mg/24 hours Tab-ER) 1 Tablets By Mouth 2 times a day. Last Dose: ____Next Dose: ____ leflunomide (Arava 10 mg oral tablet) 1 Tablets By Mouth every day. Last Dose: ____Next Dose: ____ lisinopril (lisinopril 5 mg Tab) 1 Tablets By Mouth every day. Last Dose: ____Next Dose: ____ metoprolol (metoprolol 100 mg ER Tab) 1 Tablets By Mouth at bedtime. Last Dose: ____Next Dose: ____ pregabalin (Lyrica 150 mg Cap) 1 Capsules By Mouth 2 times a day. Last Dose: ____Next Dose: ____ tizanidine (Zanaflex 4 mg Tab) 1 tab(s) Oral in AM 3 tabs at bedtime. Last Dose: ____Next Dose: ____ upadacitinib (Rinvoq 15 mg oral tablet, extended release) 1 Tablets By Mouth every day. Last Dose: ____Next Dose: ____ Comment: MEDICATION LIST PROVIDED FOR YOU IS A LIST OF YOUR CURRENT MEDICATIONS. PLEASE CARRY THIS WITH YOU AT ALL TIMES. acetaminophen-oxycodo ne (Percocet 5 mg-325 mg oral tablet) 1-2 tab(s) Oral q4hr. Refills: 0. buPROPion (Wellbutrin XL 300 mg/24 hours Tab-ER) 1 Tablets By Mouth 2 times a day. celecoxib (CeleBREX 100 mg Cap) 1 Capsules By Mouth 2 times a day as needed for pain. Refills: 0. cephalexin (Keflex 500 mg Cap) 1 Capsules By Mouth every 8 hours for 7 Days. Refills: 0. docusate (Colace 100 mg Cap) 1 Capsules By Mouth 2 times a day as needed for constipation. Refills: 0. leflunomide (Arava 10 mg oral tablet) 1 Tablets By Mouth every day. lisinopril (lisinopril 5 mg Tab) 1 Tablets By Mouth every day. metoprolol (metoprolol 100 mg ER Tab) 1 Tablets By Mouth at bedtime. pregabalin (Lyrica 150 mg Cap) 1 Capsules By Mouth 2 times a day. tizanidine (Zanaflex 4 mg Tab) 1 tab(s) Oral in AM 3 tabs at bedtime. upadacitinib (Rinvoq 15 mg oral tablet, extended release) 1 Tablets By Mouth every day. Pharmacy Information: [facility] Aracelis ([id number]) (more content not included)... Normal [facility] IntraOperative Documentson 0 04-07-2023 IntraOperative Documents [id number] .00CD:127 Normal [facility] IntraOperative Documents [id number] .00CD:127 Normal [facility] Lyteson 04-07-2023 Anion gap [Moles/Vol] 6 mmol/L Normal 6-16 [facility] Comment on above: Performed By: #### 2 622672, 2467171, 9625698, 8057480, 18809518, 3135496 ####[facility] [address] [place] [address] Chloride [Moles/Vol] 118 mmol/L High 101-111 [facility] Comment on above: Performed By: #### 2 649526, 5908585, 3585437, 8148012, 16961837, 1199077 ####[facility] [address] [place] [address] CO2 [Moles/Vol] 23 mmol/L Normal 21-31 [facility] Comment on above: Performed By: #### 2 142038, 8528900, 6533374, 5428245, 02237463, 6072455 ####[facility] [address] [place] [address] Potassium [Moles/Vol] 4.0 mmol/L Normal 3.5-5.3 [facility] Comment on above: Performed By: #### 2 561145, 2967006, 0252371, 7616411, 34838864, 2399554 ####[facility] [address] [place] [address] Sodium [Moles/Vol] 143 mmol/L Normal 135-145 [facility] Comment on above: Performed By: #### 2 721139, 9482175, 5639118, 3980834, 50894505, 8765307 ####[facility] [facility] [address] [place] [address] Main OR Intraoperative Recor don 04-07-2023 Main OR Intraoperative Record IntraOp Document Type FT Summary Primary Physician: Jordan Yuan DO Finalized Date/Time: 04/07/23 14:30:58 Pt. Name: RADHA ZAIDI/Sex: 1960 Female Med Rec #: [id number] Physician: Jordan Yuan DO Financial #: [id number] Pt. Type: A Room/Bed: [place] [address] Admit/Disch: 04/06/23 06:09:55 - 04/07/23 09:30:00 Institution: Case Times FT Entry 1 Patient Times In Room 04/06/23 09:32:00 Out Room 04/06/23 11:36:00 Procedure Times Start 04/06/23 10:14:00 Stop 04/06/23 11:30:00 Anesthesia Times Start 04/06/23 09:32:00 Stop 04/06/23 11:36:00 Block Timeout w04/06/23 08:24:00 Anesthesia Last Modified By: Susi HARO, Dennis Curry 04/06/23 11:35:46 General Comments: Right shoulder block performed by under ultrasound guidance. Leisa, RN to assist with the block. Block timeout at 0824. Patient's heartrate-78, SPo2- 100% on room air. patient tolerated block well. Block start at 0833. Block end at 0836. Patient transported via cart back to [facility] and placed on SP02 monitor by Leisa, ESTRELLITA. -ESTRELLITA Tomlin 04/07/23 Chart opened to review and send charges LRoth CSFA Case Attendance FT Entry 1 Entry 2 Entry 3 Case Attendee Idris SENIOR CHEMICAL ENGINEER, Adiel Yuan DO, Jordan Goldman RN, Dennis Curry Role Performed SENIOR CHEMICAL ENGINEER Surgeon - Primary Golf Stud Riveter - Primary Time In 04/06/23 09:32:00 04/06/23 10:05:00 04/06/23 09:32:00 Time Out 04/06/23 11:36:00 04/06/23 11:16:00 04/06/23 11:36:00 Procedure SHOULDER TOTAL SHOULDER TOTAL SHOULDER TOTAL ARTHROPLASTY(Right) ARTHROPLASTY(Right) ARTHROPLASTY(Right) Comments , anesthesia supervisor [place] Last Modified By: Wanda MARI, Sharmaine Goldman RN, Dennis Goldman RNDennis 04/07/23 14:28:51 04/06/23 11:35:47 04/06/23 11:35:47 Entry 4 Entry 5 Entry 6 Case Attendee Valerie MARI, Jena Taylor CST, Benjamin Role Performed Scrub - Primary Scrub - Primary PEDIATRIC DENTAL HYGIENIST/SA Time In 04/06/23 09:32:00 04/06/23 09:32:00 04/06/23 09:32:00 Time Out 04/06/23 11:20:00 04/06/23 11:36:00 04/06/23 11:36:00 Procedure SHOULDER TOTAL SHOULDER TOTAL SHOULDER TOTAL ARTHROPLASTY(Right) ARTHROPLASTY(Right) ARTHROPLASTY(Right) Comments in orientation Last Modified By: Susi HARO, Dennis Goldman RN, Dennis Downs RN 04/06/23 11:35:47 04/06/23 11:35:47 04/06/23 11:35:47 Entry 7 Entry 8 Case Attendee Andie Fuentes Jennifer E Role Performed Staff - Other Staff - Other Time In 04/06/23 09:32:00 04/06/23 09:32:00 Time Out 04/06/23 11:36:00 04/06/23 11:13:00 Procedure SHOULDER TOTAL SHOULDER TOTAL ARTHROPLASTY(Right) ARTHROPLASTY(Right) Comments scrubbed in, retractor scrubbed in, retractor munoz munoz Last Modified By: Susi HARO, Dennis Downs RN 04/06/23 11:35:47 04/06/23 11:35:47 General Comments: Gunner Jaramillo, [employer] rep., present in the OR for surgical case. Perioperative Protocols FT Pre-Care Text: Implements protective measures prior to operative or invasive procedure, confirms identity before the operative or invasive procedure, verifies operative procedure, surgical site, and laterality Entry 1 Procedure(s) SHOULDER TOTAL Patient Identity Birthday, Blood Band, ARTHROPLASTY(Right) Verified (select at ID Band Check, Patient least 2): Participation Consents / H and P Anesthesia Consent, Operative Site Present Verified HandP, Surgery/Procedure Marking Verified Consent, Transfusion Consent Surgical Site Yes Laterality Verified Yes Verified Procedure Verified Yes Correct Patient Yes Position Verified Availability Equipment, Implant, Prep Dry n/a Verified (If Medication Applicable) PreOp Antibiotic Yes Time Out Adiel Steinberg CRNA, Given Participants Jordan Yuan DO, Krupp RN, Dennis Curry, Valerie PEDIATRIC DENTAL HYGIENIST, Johnathan Hernandez Sydney A, Wilhelm CST, Alfredo Lopez Jessica D, Francis, Jennifer E Time Out Complete 04/05/23 10:13:00 Outcomes Met? Yes Last Modified By: Dennis Goldman RN 04/06/23 10:23:19 Post-Care Text: The patient is free from signs and symptoms of injury caused by extraneous objects Allergy Information FT Pre-Care Text: Verifies allergies Entry 1 Allergies Reviewed? Yes Allergies Reviewed Self/Patient With Outcomes Met? Yes Last Modified By: Dennis Goldman RN 04/06/23 08:47:33 Post-Care Text: The patient received appropriate medication(s) safely administered during the perioperative period Surgical Procedures FT Entry 1 Procedure Description Procedure SHOULDER TOTAL Modifiers Right ARTHROPLASTY Surgeon Description RIGHT REVERSE TOTAL SHOULDER ARTHROPLASTY Primary Procedure Yes Primary Surgeon Jordan Yuan DO Start 04/06/23 10:14:00 Stop 04/06/23 11:30:00 Anesthesia Type General Surgical Service Orthopedics Wound Class 1 - Clean Last Modified By: Dennis Goldman RN 04/06/23 11:35:51 General Case Data FT Pre-Care Text: Classifies surgical wound, implements aseptic technique, initiates traffic control (more content not included)... Normal [facility] Main OR PACU I Recordon 03-12 Main OR PACU I Record PACU Phase I Docum ent Type FT Summary Primary Physician: Jordan Yuan DO Finalized Date/Time: 04/07/23 08:05:19 Pt. Name: RADHA ZAIDI/Sex: 1960 Female Med Rec #: [id number] Physician: Jordan Yuan DO Financial #: [id number] Pt. Type: O Room/Bed: [place] [address] Admit/Disch: 04/06/23 06:09:55 - Institution: Case Times PACU I FT Pre-Care Text: Identifies barriers to communication and implements measures to provide psychological support Develops individualized plan of care, and ensures continuity of care Maintains patient's dignity and privacy, and maintains patient confidentiality Identifies and reports philosophical, cultural, and spiritual beliefs and values Identifies individual values and wishes concerning care Implements aseptic technique, and administers prescribed antibiotic therapy and immunizing agents as ordered Evaluates postoperative tissue perfusion Implements thermoregulation measures, and monitors body temperature Evaluates postoperative respiratory status Evaluates postoperative cardiac status Evaluates postoperative neurological status Assesses pain control, collaborated in initiating patient-controlled analgesia and implements alternative methods of pain control Verifies allergies, administers prescribed medications and solutions, evaluates response to medications Entry 1 In PACU I 04/06/23 11:37:00 Discharge from PACU 04/06/23 12:48:00 I Outcomes Met? Yes Last Modified By: Deyanira Donald RN 04/06/23 13:17:55 Post-Care Text: The patient demonstrates knowledge of the expected response to the operative or invasive procedure The patient's care is consistent with the individualized perioperative plan of care The patient's right to privacy is maintained The patient's value system, lifestyle, ethnicity, and culture are considered, respected, and incorporated into the perioperative plan of care The patient participates in decisions affecting his or her perioperative plan of care The patient is free from signs and symptoms of infection The patient has wound/tissue perfusion consistent with or improved from baseline levels established preoperatively The patient is at or returning to normothermia at the conclusion of the immediate postoperative period The patient's respiratory function is consistent with or improved from baseline levels established preoperatively The patient's cardiovascular status is consistent with or improved from baseline levels established preoperatively The patient's cardiovascular status is consistent with or improved from baseline levels established preoperatively The patient demonstrates and/or reports adequate pain control throughout the perioperative period The patient received appropriate medication(s), safely administered during the perioperative period Acuity Level PACU I FT Entry 1 Start Time 04/06/23 11:37:00 Stop Time 04/06/23 12:48:00 Acuity Level Acuity Level I Last Modified By: Deyanira Donald RN 04/06/23 13:18:10 General Comments: 04/07/2023 0804hr Mae-op doc desirae. ESTRELLITA Elizondo Finalized By: Cate Gonsales RN Document Signatures Signed By: Cate Gonsales RN 04/07/23 08:04 Cate Gonsales RN 04/07/23 08:05 Normal [facility] Patient Education - Texton 0 04-07-2023 Patient Education - Text [place], [place] [facility] DISCHARGE INSTRUCTIONS: SHOULDER REPLACEMENT MEDICATIONS You will be given a prescription for pain medication. This should be taken with food as needed. This may cause stomach upset, dizziness, and possible constipation. Please notify the office if you have any medication allergies to this type of medication or if any problems develop with the medication. DRESSING CHANGES Leave your bandage in place until your follow up visit. The bandage is waterproof, so you may shower it home. Any increase in pain, temperature over 101 degrees, redness, or drainage should be reported to the office prior to your first office visit. ACTIVITY You may continue to progress activity as comfortably tolerated with your opposite arm. You may begin to use your elbow, wrist, and hand as directed in physical therapy. You should only remove your sling for bathing and to perform range of motion exercises for the hand, wrist, and elbow. Do not actively move your shoulder Continue to ice the shoulder several times per day until follow up. ANESTHESIA PRECAUTIONS You should not operate a vehicle, automobile, bicycle or motorcycle, machinery, or power tools, make any important decisions, or drink alcohol for 24 hours. It may be beneficial to have a responsible adult remain with you for your first 24 hours after surgery. You may be drowsy and light-headed. DRIVING Driving is legal, however, if you are involved in an accident, you must be able to prove that you maintained full control of your vehicle. For this reason, it is advised that you do not drive until your strength returns. PROBLEMS You should notify the office for any persistent or heavy bleeding, temperature above 101, redness, swelling, or drainage from the operative site, severe pain at the operative site, or the development of persistent vomiting. Jordan Yuan DO [facility] [address] [place] [address] Reviewed: Normal [facility] Preoperative Documentson Preoperative Documents [id number] .00CD:127 Normal [facility] Progress Note-Physicianon Progress Note-Physician Patient: RADHA ZAIDI Age: 62 years Sex: Female : 1960 Associated Diagnoses: None Author: Jordan Yuan DO POD 1 s/p R reverse TSA pain controlled. estella po. no CP/SOB R UE: sling/cryocuff in place, strong wrist flex/ext, makes fist, extends all digits, brisk cap refill WBC 9.6 Hgb 10 Hct 29.7 Plt 215 post op xrays reviewed yesterday. prosthesis in satisfactory position. Plan: - D/C home Objective Vital Signs 04/07/2023 2:00 EDT Temperature Oral 36.4 DegC Heart Rate Monitored 88 bpm Respiratory Rate 16 br/min Systolic Blood Pressure 101 mmHg Diastolic Blood Pressure 63 mmHg SpO2 94 % Normal [facility] Comment on above: Result Comment: Elec tronically Signed By: Jordan Yuan DO.br\Date and Time Signed: 04/07/23 07:40 EDT eGFRon 04-07-2023 GFR/1.73 sq M.predicted among non-blacks MDRD (S/P/Bld) [Vol rate/Area] 72 mL/min/1.73 m2 Normal >=59 [facility] Comment on above: Order Comment: Order added by Discern Expert. Result Comment: Assistant Director Of Admissions dina kidney disease could be indicated at eGFR's of less than 60 mL/min/1.73m2. Kidney failure is indicated at less than 15 mL/min/1.73m2. Performed By: #### 2 [id number] ####[facility] [address] [place] [address] ABO/Rhon 04-06-2023 ABO/Rh Positive Invalid Interpretation Code [facility] Comment on above: Performed By: #### 1 [id number], [id number], [id number] ####[facility] [address] [place] [address] ABO/Rh History Checkon 04-06 ABO/Rh History Check Verified Hx Blood Type Normal [facility] Comment on above: Performed By: #### 1 [id number], [id number], [id number] ####[facility] [address] [place] [address] ABSCon 04-06-2023 ABSC Gel Interp Negative Normal [facility] Comment on above: Performed By: #### 1 [id number], [id number], [id number], [id number] ####[facility] [address] [place] [address] BLOOD BANKOrdered By: Heidiarsh alfreda Nunez on 04-06-2023 ABO/Rh Interp Positive Invalid Interpretation Code [facility] BB Subsection ABSC Gel Interp Negative (04/06/23 7:23 AM) Normal [facility] BB Subsection Blood Bank ID#on 04-06-2023 BBID# [id number] Invalid Interpretation Code [facility] Comment on above: Performed By: #### 1 [id number], [id number], [id number], [id number] ####[facility] [address] [place] [address] Consent for Treatmenton 03-12 Consent for Treatment [id number] .00CD:127 Normal [facility] H&P Updateon 04-06-2023 H&P Update [id number] .00CD:127 Normal [facility] Insurance Correspondence Off iceon 04-06-2023 Insurance Correspondence Office [id number]# 1.00CD:127 Normal [facility] Main OR Preoperative Recordo n 04-06-2023 Main OR Preoperative Record PreOp Document Type FT Summary Primary Physician: Jordan Yuan DO Finalized Date/Time: 04/06/23 09:32:24 Pt. Name: RADHA ZAIDI/Sex: 1960 Female Med Rec #: [id number] Physician: Jordan Yuan DO Financial #: [id number] Pt. Type: A Room/Bed: 11/08 Admit/Disch: 04/06/23 06:09:55 - Institution: Case Times PreOp FT Pre-Care Text: Verifies consent for planned procedure, identifies individual values and wishes concerning care, includes family members in perioperative teaching Entry 1 Patient Times. In Pre Surgery 04/06/23 06:30:00 Out Pre Surgery 04/06/23 09:30:00 Outcomes Met? Yes Last Modified By: Susi HARO, Dennis Curry 09/27/23 09:32:22 Post-Care Text: The patient participates in decisions affecting his or her perioperative plan of care Finalized By: Dennis Goldman RN Document Signatures Signed By: Dennis Goldman RN 04/06/23 09:32 Normal [facility] Monitor Recordon 04-06-2023 Monitor Record [id number]# 1.00CD:127 Normal [facility] Monitor Record [id number]# 1.00CD:127 Normal [facility] Monitor Record [id number]# 1.00CD:127 Normal [facility] Operative Reporton Operative Report Patient: RADHA ZAIDI Age: 62 years Sex: Female : 1960 Associated Diagnoses: None Author: Jordan Yuan DO DATE OF SURGERY: 04/06/2023 SURGEON: Jordan Yuan D.O. SERVICE STATION EQUIPMENT MECHANIC: Anival Flores CFA PREOPERATIVE DIAGNOSIS: Massive rotator cuff tear, right shoulder POSTOPERATIVE DIAGNOSIS: Massive rotator cuff tear, right shoulder OPERATION: Right reverse total shoulder arthroplasty ANESTHESIA: General with a regional block ANESTHESIOLOGIST: Colin Rai DO and dAiel Steinberg CRNA IMPLANTS USED: Ar[employer]rex [employer] Revers System 1. 24 mm 10 degree full augment standard baseplate, 20 mm central post, four peripheral screws measuring 4.5 mm x 28 mm & 32 mm nonlocking, two 5.5 mm x 20 mm locking 2. 36 +4 Glenosphere 3. size +6 humeral insert 4. Revers [place] size 9 stem with 36 (neutral) Suturecup OPERATIVE INDICATIONS: Radha is a 62-year-old [id number] female who has had persistent right shoulder pain that has gotten progressively worse over time. She has lost strength, range of motion, and function. Her symptoms interfere with her activities of daily living, ability to sleep at night, and quality of life. She agreed to proceed with the above procedure after a discussion of the risks, benefits, complications, alternatives, and expectations. Please see office notes for further details. Presurgical planning and intraoperative instrumentation were performed with the Arthrex VIP software. PROCEDURE: The correct operative site was identified and marked in the preoperative holding area. The patient was administered intravenous antibiotics in accordance with SCIP Protocol. She was transported to the Regional Block Room and administered a regional anesthetic nerve block by the anesthesiologist. I requested the regional nerve block to assist with intraoperative and postoperative pain control. She was transported to the Operating Room and placed supine on the operating room table. She was administered a general anesthetic. After adequate anesthesia was obtained, she was placed into the beach chair position with all bony prominences well padded and the head secured in the padded munoz. The head of the table was elevated approximately 45 degrees. She was administered one gram of Tranexamic acid intravenously about 15 minutes prior to the incision. Pneumatic sequential stockings were applied to the legs. The right upper extremity was then prepped and draped in the usual sterile fashion. The extremity was draped free and placed onto a padded sterile del toro stand. A deltopectoral approach was utilized. An incision was made beginning at the coracoid process and extended distally towards the deltoid insertion. Medial and lateral skin flaps were developed. Hemostasis achieved along the way with Bovie electrocautery and Aquamantys. The cephalic vein was located. The deltopectoral interval was identified and opened. The cephalic vein was retracted laterally. Perforating veins into the pectoralis were cauterized with the Bovie. Deltoid adhesions within the subacromial space were released with a guzmán. Perez retractor was then placed to retract the deltoid. The conjoined tendon was identified and the clavipectoral fascia was opened just lateral to the conjoined tendon. The coracoacromial ligament was identified and the rotator interval was then opened. The bicipital sheath was opened and the biceps tendon was absent. The anterior circumflex vessels were cauterized with the Bovie and Aquamantys. A Darrauch retractor was placed into the glenohumeral joint and used to help apply tension to the anterior capsule. There was no subscapularis tendon present. The anterior capsule was released from the proximal humerus with the bovie. The arm was extended, adducted, and externally rotated to deliver the proximal humerus as the anterior capsule was released. The 135 degree resection guide was then placed against the proximal humerus and a Bovie was used to create a melly at the humeral head for the position of the desired cut. The humeral head was then freehand cut with an oscillating saw. The greater tuberosity was devoid of cuff tissue. Metal protection cap was placed onto the cut humeral surface. Attention was then turned to preparation of the glenoid. A posterior retractor was placed to retract the humeral head. Fredrick retractor placed posterosuperiorly. The axillary nerve was palpated along the anterior inferior glenoid and this was protected during release of the anterior capsule. An anterior glenoid retractor was then placed. Labral tissue was excised circumferentially. The VIP guide was used to place the central pin. The guide was then removed, position of the guide pin was checked with visual inspection and compared to the printed 5D model. The wedge augment checking device was placed against the glenoid surface and a bovie was used to melly the area of maximum deficiency. The depth-stop (more content not included)... Normal [facility] Comment on above: Result Comment: Elec tronically Signed By: Jordan Yuan DO\.br\Date and Time Signed: 04/06/23 15:39 EDT Operative Report Patient: RADHA ZAIDI Age: 62 years Sex: Female : 1960 Associated Diagnoses: None Author: Yanick Rai DO Procedure Nerve Block Block Type: Interscalene block. Laterality: Right. Informed consent for anesthesia management: Anesthesia options discussed including nerve block, Description of the procedure, risks, benefits, and alternatives was provided, The patient's questions were addressed. Time out: Confirmed correct patient, procedure and site. Time: Date/Time 04/06/2023 08:33:00. Indication: Block for postoperative pain management as requested by surgeon. Anesthesia Method: IV Sedation with monitored anesthesia care, The patient remained awake and able to interact in a meaningful way throughout the procedure. Preparation: The patient was placed in the following position Supine, Continuous pulse oximetry applied, Using maximal sterile barrier technique per current CMS guidelines including hand hygeine, Guidance (Ultrasound used to identify anatomical landmarks, Using sterile gel and probe covers, Permanent image retained), The site was prepped with ChloraPrep. Procedure: Anesthetic Agent (0.5% Ropivacaine with 4mg Decadron, Nerve stimulator utilized and brought down to 0.4 mAmps without any problem or nerves being elicited. Slow fractionated injections given), Catheter size 21 guage, Catheter length 50 mm, Needle was inserted without pain or parasthesia in the conscious patient, Number of attempts 1, Negative attempt at aspiration for blood, Medial and lateral spread of the anesthestic was observed, Periodic negative attempts at aspiration of blood were made as the local was injected, No pain or parathesia were elicited with injection of the anesthetic in the conscious patient, It was idetified that the correct anesthetic agent was administered to the correct site. Complications: None, The patient tolerated the procedure as expected. [facility] Comment on above: Result Comment: Elec tronically Signed By: Yanick Rai DO\.br\Date and Time Signed: 04/06/23 08:44 EDT Progress Note-Physicianon Progress Note-Physician Patient: RADHA ZAIDI Age: 62 years Sex: Female : 1960 Associated Diagnoses: None Author: Yanick Rai DO Postoperative Information Postoperative disposition: Postoperative disposition: To PACU. Optimetrix number: Optimetrix number [id number]. Anesthetic utilized: General. Regional: Interscalene Block. Health Status Allergies: Allergic Reactions (Selected) No Known Allergies Current medications: (Selected) Inpatient Medications Ordered Arava 20 mg Tab: 10 mg = 1 tab(s), Tab, Oral, Daily, Routine, Start date 04/07/23 9:00:00 EDT Colace 100 mg Cap: 100 mg = 1 cap(s), Cap, Oral, BID, Routine, Start date 04/06/23 21:00:00 EDT, 04/06/23 9:57:00 EDT Dulcolax 5 mg Tab-EC: 10 mg = 2 tab(s), Tab-EC, Oral, Daily PRN Constipation, Routine, Start date 04/08/23 9:57:00 EDT, 04/08/23 9:57:00 EDT HYDROmorphone 1 mg/mL injectable solution: 0.4 mg = 0.4 mL, Injection, IV Push, q4min PRN Pain for 5 dose(s), Stop date Limited # of times, Routine, Start date 04/06/23 9:29:00 EDT, 04/06/23 9:29:00 EDT Lactated Ringers IV Teodora 1000 mL 1,000 mL: 1,000 mL, IV, 100 mL/hr, Routine, Start date 04/06/23 9:29:00 EDT, 10 hour(s), Total volume (mL): 1,000, 73.5 kg, 1.81, m2 Lactated Ringers IV Teodora 1000 mL 1,000 mL: 1,000 mL, IV, 150 mL/hr, Routine, Start date 04/06/23 6:30:00 EDT, 6.7 hour(s), Total volume (mL): 1,000, 73.5 kg, 1.81, m2 Lactated Ringers IV Teodora 1000 mL 1,000 mL: 1,000 mL, IV, 80 mL/hr, Routine, Start date 04/06/23 9:57:00 EDT, 12.5 hour(s), Total volume (mL): 1,000, 73.5 kg, 1.81, m2 Lovenox 40 mg/0.4 mL SC Teodora: 40 mg = 0.4 mL, Injection, SubCutaneous, Daily for 10 day(s), Stop date 04/17/23 8:59:00 EDT, Routine, Start date 04/07/23 9:00:00 EDT, Start in AM postop day 1, 04/07/23 9:00:00 EDT Lyrica 150 mg Cap: 150 mg = 1 cap(s), Cap, Oral, BID, Routine, Start date 04/06/23 21:00:00 EDT Milk of Magnesia 8% Susp-Oral: 30 mL, Susp-Oral, Oral, BID PRN Constipation, Routine, Start date 04/06/23 9:57:00 EDT Nozin 62% Bottle - POSTOP: 6 drop(s), Soln-Nasal, Nasal, BID, Routine, Start date 04/06/23 21:00:00 EDT Pantoprazole [address] Tab: 40 mg = 1 tab(s), Tab-DR, Oral, Daily, Routine, Start date 04/07/23 9:00:00 EDT, 04/06/23 9:57:00 EDT Phenergan 25 mg/mL Injection: 12.5 mg = 0.5 mL, Injection, IV Push, q2min PRN Other (see comment) for 2 dose(s), Stop date Limited # of times, Routine, Start date 04/06/23 9:29:00 EDT, 04/06/23 9:29:00 EDT Rinvoq 15 mg oral tablet, extended release: Rinvoq 15 mg oral tablet, extended release, 1 tab, Oral, Daily, Routine, Start date 04/07/23 9:00:00 EDT Vitamin C 500 mg Tab: 500 mg = 1 tab(s), Tab, Oral, BIDWM, Routine, Start date 04/06/23 17:00:00 EDT, 04/06/23 9:57:00 EDT Wellbutrin XL 300 mg/24 hours Tab-ER: 300 mg = 1 tab(s), Tab-ER, Oral, BID, Routine, Start date 04/06/23 21:00:00 EDT, 04/06/23 9:58:00 EDT Zofran 4 mg/2 mL Injection: 4 mg = 2 mL, Injection, IV Push, Once PRN Nausea/Vomiting, Routine, Start date 04/06/23 9:29:00 EDT, 04/06/23 9:29:00 EDT Zofran 4 mg/2 mL Injection: 4 mg = 2 mL, Injection, IV Push, q6hr PRN Nausea/Vomiting, Routine, Start date 04/06/23 9:57:00 EDT, 04/06/23 9:57:00 EDT acetaminophen 325 mg Tab: 975 mg = 3 tab(s), Tab, Oral, q6hr for 3 dose(s), Stop date 04/07/23 7:59:00 EDT, Routine, Start date 04/06/23 14:00:00 EDT, 04/06/23 14:00:00 EDT cefazolin additive + Sodium Chloride 0.9% intravenous solution 50 mL: 2 gram = 1 EA, IV Piggyback, q8hr for 2 dose(s), Stop date 04/07/23 1:59:00 EDT, Routine, Start date 04/06/23 10:00:00 EDT, 100 mL/hr, Infuse over 30 minute(s), 04/06/23 9:57:00 EDT dexamethasone 4 mg/mL Inj 1 mL: 4 mg = 1 mL, Injection, IV Push, Once, Stop date 04/06/23 18:00:00 EDT, Routine, Start date 04/06/23 18:00:00 EDT, 04/06/23 18:00:00 EDT ferrous sulfate 325 mg Tab: 325 mg = 1 tab(s), Tab, Oral, BIDWM, Routine, Start date 04/06/23 17:00:00 EDT, 04/06/23 9:57:00 EDT ketorolac 15 mg/mL Inj: 15 mg = 1 mL, Injection, IV Push, q6hr for 3 dose(s), Stop date 04/07/23 9:59:00 EDT, Routine, Start date 04/06/23 16:00:00 EDT, 04/06/23 16:00:00 EDT lisinopril 5 mg Tab: 5 mg = 1 tab(s), Tab, Oral, Daily, Routine, Start date 04/07/23 9:00:00 EDT metoprolol 100 mg ER Tab: 100 mg = 1 tab(s), Tab-ER, Oral, Bedtime, Routine, Start date 04/06/23 21:00:00 EDT morphine 2 mg/mL Inj: 2 mg = 1 mL, Injection, IV, q4hr PRN Pain 8-10 for 5 day(s), Stop date 04/11/23 9:56:00 EDT, Routine, Start date 04/06/23 9:57:00 EDT, 04/06/23 9:57:00 EDT oxyCODONE 5 mg Tab: 10 mg = 2 tab(s), Tab, Oral, q4hr PRN Pain 8-10 for 5 day(s), Stop date 04/11/23 9:56:00 EDT, Routine, Start date 04/06/23 9:57:00 EDT oxyCODONE 5 mg Tab: 5 mg = 1 tab(s), Tab, Oral, q4hr PRN Pain 8-10 for 5 day(s), Stop date 04/11/23 9:56:00 EDT, Routine, Start date 04/06/23 9:57:00 EDT Prescriptions Prescribed CeleBREX 100 mg Cap: 100 mg = 1 cap(s), Oral, BID, PRN for pain, # 60 cap(s), Refills(s) 0, Pharmacy: [facility]/pharmacy #[id number], 160, cm, 03/25/23 6:16:00 EDT, Height/Length Dos (more content not included)... Normal [facility] Comment on above: Result Comment: Elec tronically Signed By: Yanick Rai DO\.br\Date and Time Signed: 04/06/23 11:57 EDT Progress Note-Physician Patient: RADHA ZAIDI Age: 62 years Sex: Female : 1960 Associated Diagnoses: None Author: Yanick Rai DO Preoperative Information Anesthesia history: Patient history: None. Family history+: None. Anesthesia results Informed consent: Signed by patient. Including risks, benefits, and alternatives related to the: Anesthetic plan, Postoperative pain management plan. Re-evaluation prior to induction: Yanick Rai DO. Health Status Allergies: Allergic Reactions (Selected) No Known Allergies, Allergies (1) Active Reaction No Known Allergies None Documented Current medications: (Selected) Inpatient Medications Ordered Lactated Ringers IV Teodora 1000 mL 1,000 mL: 1,000 mL, IV, 150 mL/hr, Routine, Start date 04/06/23 6:30:00 EDT, 6.7 hour(s), Total volume (mL): 1,000, 73.5 kg, 1.81, m2 cefazolin additive + Sodium Chloride 0.9% intravenous solution 50 mL: 2 gram = 1 EA, Powder-Inj, IV Piggyback, PREOP, Routine, Start date 04/06/23 6:30:00 EDT, 100 mL/hr, Infuse over 30 minute(s) tranexamic acid additive + premix generic diluent 100 mL: 1,000 mg = 100 mL, Soln-IV, IV Piggyback, Once, Stop date 04/06/23 7:00:00 EDT, Routine, Start date 04/06/23 7:00:00 EDT, 200 mL/hr, Infuse over 30 minute(s) Documented Medications Documented Arava 10 mg oral tablet: 10 mg = 1 tab(s), Oral, Daily, Refills(s) 0, Arthritis Lyrica 150 mg Cap: 150 mg = 1 cap(s), Oral, BID, # 60 cap(s), Refills(s) 0, Pain Percocet 5 mg-325 mg oral tablet: 1 tab(s), Oral, TID, Refill(s) 0, Pain Rinvoq 15 mg oral tablet, extended release: 15 mg = 1 tab(s), Oral, Daily, Refills(s) 0, Arthritis Wellbutrin XL 300 mg/24 hours Tab-ER: 300 mg = 1 tab(s), Oral, BID, Refills(s) 0, Depression Zanaflex 4 mg Tab: See Instructions, 1 tab(s) Oral in AM 3 tabs at bedtime, Refills(s) 0 lisinopril 5 mg Tab: 5 mg = 1 tab(s), Oral, Daily, Refills(s) 0, High blood pressure metoprolol 100 mg ER Tab: 100 mg = 1 tab(s), Oral, Bedtime, Refills(s) 0, Home Medications (8) Active Arava 10 mg oral tablet 10 mg = 1 tab(s), Oral, Daily lisinopril 5 mg Tab 5 mg = 1 tab(s), Oral, Daily Lyrica 150 mg Cap 150 mg = 1 cap(s), Oral, BID metoprolol 100 mg ER Tab 100 mg = 1 tab(s), Oral, Bedtime Percocet 5 mg-325 mg oral tablet 1 tab(s), Oral, TID Rinvoq 15 mg oral tablet, extended release 15 mg = 1 tab(s), Oral, Daily Wellbutrin XL 300 mg/24 hours Tab-ER 300 mg = 1 tab(s), Oral, BID Zanaflex 4 mg Tab See Instructions , Medications (3) Active Scheduled: (2) ceFAZolin + Sodium Chloride 0.9% Minibag 50 mL 2 gram 1 EA, IV Piggyback, PREOP tranexamic acid + Generic Diluent 100 mL 1,000 mg 100 mL, IV Piggyback, Once Continuous: (1) Lactated Ringers 1,000 mL 1,000 mL, IV, 150 mL/hr PRN: (0) Problem list: All Problems Bradycardia / SNOMED CT 83613686 / Confirmed High blood pressure / SNOMED CT 0735227728 / Confirmed 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 Family History: Primary malignant neoplasm of prostate Father Acute myocardial infarction Mother Procedure history: Cervical laminectomy (5255512421). Amputation of finger (461042095). Removal of lung, Partial (29149). Open reduction and internal fixation of fracture Leg (713736689). Foot surgery (0939334005). Lumbar discectomy (667094104). Social History Social & Psychosocial Habits Alcohol 03/24/2023 Risk Assessment: Denies Alcohol Use Substance Abuse 03/24/2023 Risk Assessment: Denies Substance Abuse Tobacco 03/24/2023 Risk Assessment: Denies Tobacco Use . Physical Examination Vital Signs 04/06/2023 6:39 EDT Heart Rate Monitored 69 bpm Systolic Blood Pressure 119 mmHg Diastolic Blood Pressure 75 mmHg Blood Pressure Location Left arm Mean Arterial Pressure, Monitered 90 mmHg 04/06/2023 6:39 EDT Heart Rate Monitored 68 bpm SpO2 95 % 04/06/2023 6:39 EDT Respiratory Rate 20 br/min 04/06/2023 6:39 EDT Apical Heart Rate 68 bpm 04/06/2023 6:38 EDT Temperature Axillary 36.5 DegC 04/06/2023 6:38 EDT Systolic Blood Pressure 123 mmHg Diastolic Blood Pressure 75 mmHg Blood Pressure Location Right arm Mean Arterial Pressure, Monitered 91 mmHg Vital Signs (last 24 hrs) Last Charted Temp Axillary 36.5 DegC (APR 06 06:38) Heart Rate Apical 68 bpm (APR 06 06:39) SBP 119 mmHg (APR 06 06:39) DBP 75 mmHg (APR 06:39) SpO2 95 % (APR 06:39) Airway: Mallampati classification: II (soft palate, fauces, uvula visible). Distance: Mentohyoid, Interincisive, Thyromental, Mentosternal, Adequate. HENT: Normocephalic. Respiratory: Lungs are clear to auscultation. (more content not included)... Normal [facility] Comment on above: Result Comment: Elec tronically Signed By: Yanick Rai DO\.br\Date and Time Signed: 04/06/23 08:05 EDT XR Shoulder Complete Righton 04-06-2023 XR Shoulder Complete Right Exam Date/Time: 04/06/2023 11:58 EDT Reason for Exam: Post Op Report IMPRESSION: Postsurgical changes of right shoulder arthroplasty. EXAM: XR Shoulder Complete Right HISTORY: Postoperative evaluation shoulder arthroplasty TECHNIQUE: Frontal and lateral views of the right shoulder COMPARISON: CT 03/24/2023 FINDINGS: Postsurgical changes of shoulder arthroplasty including soft tissue emphysema. Alignment is anatomic. No periprosthetic abnormality. Ordering Provider: Jordan Yuan FINAL REPORT Dictated: 04/06/2023 2:03 pm Gigi Suazo DO Signed (Electronic Signature): 04/06/2023 2:03 pm Signed by: Gigi Suazo DO Transcribed by: DANISHA Technologist: GARRET Technical Comments Radiation Dose: Ka,r in mGy = na DAP = na Normal [facility] Consent for Procedure/Surger yon 04-05-2023 Consent for Procedure/Surgery [id number] .00CD:127 Normal [facility] CT Upper Extremity w/o Contr ast Righton 03-25-2023 CT Upper Extremity w/o Contrast Right Exam Date/Time: 03/24/2023 16:10 EDT Reason for Exam: OA RIGHT SHOULDER Report IMPRESSION: RIGHT SHOULDER OSTEOARTHRITIS. EXAMINATION: CT Upper Extremity w/o Contrast Right HISTORY: Right shoulder osteoarthritis TECHNIQUE: Multiple contiguous axial images were obtained of the right upper extremity utilizing Arthrex protocol. Multiplanar reformats were obtained. COMPARISON: None available FINDINGS: Degenerative changes including joint space narrowing and marginal osteophyte formation of the glenohumeral joint. Chronic deformity of the posterior superior glenoid. Mild degenerative changes of the acromioclavicular joint No acute fracture. Thinning/tearing of supraspinatus tendon. All CT scans at this facility use dose modulation, iterative reconstruction, and/or weight based dosing when appropriate to reduce radiation dose to as low as reasonably achievable. Ordering Provider: Jordan Yuan FINAL REPORT Dictated: 03/25/2023 10:40 am Gigi Suazo DO Signed (Electronic Signature): 03/25/2023 10:40 am Signed by: Gigi Suazo DO Transcribed by: DANISHA Technologist: CONSTANTINO Normal [facility] ABO/Rh Retypeon 03-24-2023 ABO/Rh Retype Interp Positive Invalid Interpretation Code [facility] Comment on above: Performed By: #### 1 [id number] ####[facility] [address] [place] [address] BLOOD BANKOrdered By: Andra Longoria on 03-24-2023 ABO/Rh Retype Interp Positive Invalid Interpretation Code [facility] BB Subsection BUNon 03-24-2023 Urea nitrogen [Mass/Vol] 28 mg/dL High 5-21 [facility] Comment on above: Performed By: #### 1 [id number], 9273569, 4652337, 6332051, 8477305, 0979065 #### [facility] [address] [place] [address] CBC w/Indiceson 03-24-2023 Erythrocyte distribution width (RBC) [Ratio] 14.5 % High 10.9-14.2 [facility] Comment on above: Performed By: #### 1 6876053, 9387042, 0474122, 1621555, 7483612, 6709292 #### [facility] [address] [place] [address] Hematocrit (Bld) [Volume fraction] 35.9 % Normal 34.0-46.0 [facility] Comment on above: Performed By: #### 1 7180632, 8638179, 7418028, 6601592, 7413595, 3180389 #### [facility] [address] [place] [address] Hemoglobin (Bld) [Mass/Vol] 11.9 g/dL Low 12.0-16.0 [facility] Comment on above: Performed By: #### 1 3890117, 7065812, 8138602, 2354552, 7092056, 4469607 #### [facility] [address] [place] [address] MCH (RBC) [Entitic mass] 32.3 pg Normal 27.0-34.0 [facility] Comment on above: Performed By: #### 1 6951939, 0993919, 8095460, 3673786, 4421713, 6502924 #### [facility] [address] [place] [address] MCHC (RBC) [Mass/Vol] 33.1 g/dL Normal 31.4-36.0 [facility] Comment on above: Performed By: #### 1 8839239, 3620885, 7205554, 3694965, 8312352, 4019449 #### [facility] [address] [place] [address] MCV (RBC) [Entitic vol] 97.4 fL Normal 80.0-100.0 [facility] Comment on above: Performed By: #### 1 3172721, 1405689, 2043630, 2136007, 9045341, 2337489 #### [facility] [address] [place] [address] Platelet mean volume (Bld) [Entitic vol] 7.4 fL Normal 6.4-10.8 [facility] Comment on above: Performed By: #### 1 2645586, 8247665, 0491880, 4968469, 7296126, 4927986 #### [facility] [address] [place] [address] Platelets (Bld) [#/Vol] 207.0 E9/L Normal 150.0-500.0 [facility] Comment on above: Performed By: #### 1 5901864, 0861823, 8044609, 0655476, 2698904, 5943946 #### [facility] [address] [place] [address] RBC (Bld) [#/Vol] 3.7 E12/L Low 4.3-5.9 [facility] Comment on above: Performed By: #### 1 8886389, 9281637, 3770905, 9895112, 2834345, 0780404 #### [facility] [address] [place] [address] WBC corrected for nucl RBC Auto (Bld) [#/Vol] 3.5 E9/L Low 4.0-11.0 [facility] Comment on above: Performed By: #### 1 3876582, 3701800, 2856097, 8215927, 3261549, 4870799 #### [facility] [address] [place] [address] CHEMISTRYOrdered By: SYSTEM SYSTEM on 03-24-2023 Anion gap [Moles/Vol] 12 mmol/L Normal 6 - 16 mEq/L [facility] C Remisol Chloride [Moles/Vol] 111 mmol/L Normal 101 - 1 11 mmol/L [facility] Remisol CO2 [Moles/Vol] 20 mmol/L Low 21 - 31 mmol/L [facility] Remisol Creatinine [Mass/Vol] 1.2 mg/dL Normal 0.5 - 1.3 mg/dL [facility] Remisol GFR/1.73 sq M.predicted among non-blacks MDRD (S/P/Bld) [Vol rate/Area] 51 mL/min/1.73 m2 Low >=59mL/min/1 .73 m2 [facility] Chem S Glucose [Mass/Vol] 84 mg/dL Normal 55 - 199 mg/dL [facility] Remisol Potassium [Moles/Vol] 4.2 mmol/L Normal 3.5 - 5.3 mmol/L [facility] Remisol Sodium [Moles/Vol] 139 mmol/L Normal 135 - 145 mmol/L [facility] Remisol Urea nitrogen [Mass/Vol] 28 mg/dL High 5 - 21 mg/dL [facility] Remisol Consent for Treatmenton 03-11 Consent for Treatment [id number] .[id number]:127 Normal [facility] Creatinineon 03-24-2023 Creatinine [Mass/Vol] 1.2 mg/dL Normal 0.5-1.3 [facility] Comment on above: Performed By: #### 1 0845211, 3604828, 1345129, 9664740, 3538845, 6644657 #### [facility] [address] [place] [address] Glucoseon 03-24-2023 Glucose [Mass/Vol] 84 mg/dL Normal 55-199 [facility] Comment on above: Performed By: #### 1 6700434, 9029570, 2632724, 5116843, 3109920, 3027397 #### [facility] [address] [place] [address] HEMATOLOGYOrdered By: Andra Longoria on 03-24-2023 Erythrocyte distribution width (RBC) [Ratio] 14.5 % High 10.9 - 14.2 % [facility] Hematocrit (Bld) [Volume fraction] 35.9 % Normal 34.0 - 46.0 % [facility]eAutoSS Hemoglobin (Bld) [Mass/Vol] 11.9 g/dL Low 12.0 - 16.0 gm/dL [facility]eAutoSS MCH (RBC) [Entitic mass] 32.3 pg Normal 27.0 - 34.0 pg [facility]eAutoSS MCHC (RBC) [Mass/Vol] 33.1 g/dL Normal 31.4 - 36.0 gm/dL [facility] MCV (RBC) [Entitic vol] 97.4 fL Normal 80.0 - 100.0 fL [facility]SS Platelet mean volume (Bld) [Entitic vol] 7.4 fL Normal 6.4 - 10.8 fL [facility]SS Platelets (Bld) [#/Vol] 207.0 E9/L Normal 150.0 - 500.0 E9/L [facility]SS RBC (Bld) [#/Vol] 3.7 E12/L Low 4.3 - 5.9 E12/L [facility]eAutoSS WBC corrected for nucl RBC Auto (Bld) [#/Vol] 3.5 E9/L Low 4.0 - 11.0 E9/L [facility] HemeAutoSS Lyteson 03-24-2023 Anion gap [Moles/Vol] 12 mmol/L Normal 6-16 [facility] Comment on above: Performed By: #### 1 2664398, 5973072, 0379634, 8514462, 8612533, 4186274 ####[facility] [address] [place] [address] Chloride [Moles/Vol] 111 mmol/L Normal 101-111 [facility] Comment on above: Performed By: #### 1 9070327, 6407723, 3229891, 1007486, 4714070, 8711087 ####[facility] [address] [place] [place] [address] CO2 [Moles/Vol] 20 mmol/L Low 21-31 [facility] Comment on above: Performed By: #### 1 9477271, 6920904, 6322819, 6187954, 6202841, 2721145 ####[facility] [address] [place] [address] Potassium [Moles/Vol] 4.2 mmol/L Normal 3.5-5.3 [facility] Comment on above: Performed By: #### 1 1357496, 4182202, 5044966, 9521216, 1343485, 6968932 ####[facility] [address] [place] [address] Sodium [Moles/Vol] 139 mmol/L Normal 135-145 [facility] Comment on above: Performed By: #### 1 9520007, 2679650, 7321532, 8974423, 1749487, 9442612 ####[facility] [address] [place] [address] UA With Cult Reflexon 2022 Bilirubin Ql (U) Negative Normal Negative [facility] Comment on above: Performed By: #### 1 5720373 ####[facility] [address] [place] [address] Clarity (U) CLEAR Normal Clear [facility] Comment on above: Performed By: #### 1 3971161 ####[facility] [address] [place] [address] Color (U) YELLOW Normal Yellow [facility] Comment on above: Performed By: #### 1 9859239 ####[facility] [address] [address] Epithelial cells.squamous LM.HPF (Urine sed) [#/Area] 0-2 Normal 0-2 [facility] Comment on above: Performed By: #### 1 0480615 ####[address] [address] Fine Granular Casts LM Ql (Urine sed) 0-3 Normal [facility] Comment on above: Performed By: #### 1 4461166 ####[address] [address] Glucose Test strip (U) [Mass/Vol] Negative Normal Negative [facility] Comment on above: Performed By: #### 1 0448272 ####[address] [address] Hemoglobin Ql (U) Negative Normal Negative [facility] Comment on above: Performed By: #### 1 0344430 ####[address] [address] Ketones (U) [Mass/Vol] Negative Normal Negative [facility] Comment on above: Performed By: #### 1 9660829 ####[address] [address] [place].plasma/Lithiu m.RBC (Bld) [Mass ratio] 0-3 Normal 0-3 [facility] Comment on above: Performed By: #### 1 6045494 ####[address] [address] Mucus Ql (Urine sed) TRACE Normal [facility] Comment on above: Performed By: #### 1 0541575 ####[address] [address] Nitrite Ql (U) Negative Normal Negative [facility] Comment on above: Performed By: #### 1 3817210 ####[address] [address] pH (U) 6.0 [pH] Invalid Interpretation Code 5.0-9.0 [facility] Comment on above: Performed By: #### 1 2042755 ####[facility] [address] [place] [address] Protein (U) [Mass/Vol] Negative Normal Negative [facility] Comment on above: Performed By: #### 1 3190561 ####[address] [address] Specific gravity (U) [Rel density] >=1.030 Invalid Interpretation Code 1.005-1.030 [facility] Comment on above: Performed By: #### 1 6414014 ####[address] [address] Type of Urine collection method Clean Catch Normal [facility] Comment on above: Performed By: #### 1 1196171 ####[address] [address] Urobilinogen Qn (U) 0.2 {Rajwinder'U}/dL Normal 0.0-1.0 [facility] Comment on above: Performed By: #### 1 0620758 ####[facility] [address] [place] [address] WBC Auto Ql (U) Negative Normal Negative [facility] Comment on above: Performed By: #### 1 9783651 ####[address] [address] WBC LM.HPF (Urine sed) [#/Area] 0-5 Normal 0-5 [facility] Comment on above: Performed By: #### 1 9124917 ####[address] [address] URINALYSISOrdered By: Indira calix on 03-24-2023 Bilirubin Ql (U) Negative (03/24/23 3:05 PM) Normal Negative [facility] UA Auto SS Clarity (U) Clear (03/24/23 3:05 PM) Normal Clear [facility] UA Auto SS Color (U) Yellow (03/24/23 3:05 PM) Normal Yellow [facility] UA Auto SS Epithelial cells.squamous LM.HPF (Urine sed) [#/Area] 0-2 /HPF Normal 0-2/HPF [facility] UA Aut o SS Fine Granular Casts LM Ql (Urine sed) 0-3 (03/24/23 3:05 PM) Normal [facility] UA Auto SS Glucose Test strip (U) [Mass/Vol] Negative (03/24/23 3:05 PM) Normal Negative [facility] UA Auto SS Hemoglobin Ql (U) Negative (03/24/23 3:05 PM) Normal Negative [facility] UA Auto SS Ketones (U) [Mass/Vol] Negative (03/24/23 3:05 PM) Normal Negative [facility] UA Auto SS [place].plasma/Lithiu m.RBC (Bld) [Mass ratio] 0-3 /HPF Normal 0-3/HPF [facility] UA Auto SS Mucus Ql (Urine sed) Trace (03/24/23 3:05 PM) Normal [facility] UA Auto SS Nitrite Ql (U) Negative (03/24/23 3:05 PM) Normal Negative [facility] UA Auto SS pH (U) 6.0 *NA* (03/24/23 3:05 PM) Invalid Interpretation Code 5.0 - 9.0 [facility] UA Auto SS Protein (U) [Mass/Vol] Negative (03/24/23 3:05 PM) Normal Negative [facility] UA Auto SS Specific gravity (U) [Rel density] >=1.030 *NA* (03/24/23 3:05 PM) Invalid Interpretation Code 1.005 - 1.030 [facility] UA Auto SS UA Spec Desc Clean Catch (03/24/23 3:05 PM) Normal [facility] UA Auto SS Urobilinogen Qn (U) 0.5100335 {Rajwinder'U}/dL Normal 0.0 - 1.0 EU/dL [facility] UA Auto SS WBC Auto Ql (U) Negative (03/24/23 3:05 PM) Normal Negative [facility] UA Auto SS WBC LM.HPF (Urine sed) [#/Area] 0-5 /HPF Normal 0-5/HPF [facility] UA Auto SS XR Chest 2 Viewson 3 XR Chest 2 Views Exam Date/Time: 03/24/2023 15:21 EDT Reason for Exam: P.A.T. Report IMPRESSION: NO EVIDENCE OF ACTIVE CHEST DISEASE. CLINICAL HISTORY: P.A.T.. COMMENT: The heart is normal in size. The mediastinum is unremarkable. There is mild elevation of the right diaphragm anteriorly. There is minimal density at the right costophrenic angle laterally, suggesting fibrosis. No consolidated airspace opacification nor pleural effusion is evident. There is metallic surgical hardware associated with the lower cervical-upper thoracic spine. There are findings at the shoulders suggesting chronic rotator cuff tears. Ordering Provider: Kaur Ahmad FINAL REPORT Dictated: 03/24/2023 3:30 pm Jayson Kemp M.D. Signed (Electronic Signature): 03/24/2023 3:30 pm Signed by: Jayson Kemp M.D. Transcribed by: DANISHA Technologist: CONSTANTINO Technical Comments Radiation Dose: Ka,r in mGy = na DAP = na Normal [facility] eGFRon 03-24-2023 GFR/1.73 sq M.predicted among non-blacks MDRD (S/P/Bld) [Vol rate/Area] 51 mL/min/1.73 m2 Low >=59 [facility] Comment on above: Order Comment: Order added by Discern Expert. Result Comment: Assistant Director Of Admissions dina kidney disease could be indicated at eGFR's of less than 60 mL/min/1.73m2. Kidney failure is indicated at less than 15 mL/min/1.73m2. Performed By: #### 1 [id number], 4647916, 1876399, 7621076, 2162198, 0760996 #### [facility] [address] [place] [address] Physician Orderon 03-23-2023 Physician Order [id number]. 00CD:127 Normal [facility] XR SHOULDER RT 2V or >on XR SHOULDER RT 2V or > EXAM: XR SHOULDER RT. HISTORY: . Pain of right shoulder joint . COMPARISON: 02/15/2022 TECHNIQUE: 3 views FINDINGS: Early arthritic changes are noted involving the humeral head. No fracture or dislocation is noted. There is narrowing of the space between the humeral head and acromion. Surrounding soft tissues are unremarkable. IMPRESSION: 1. Early arthritic changes of the right shoulder. 2. Decreased distance between the humeral head in the inferior aspect of the acromion. Findings could be due to a chronic rotator cuff tear. Clinical correlation is suggested. MRI of the shoulder could be performed for further evaluation if clinically indicated. Electronically authenticated by: VANDANA YUAN Date: 2022-10-07 22:08 Normal [facility] CBC AUTO DIFFon 09-16-2022 BASO # 0.0 103/ul Normal 0.0-0.1 [facility] Comment on above: Performed By: #### C BC ####[facility] Bqutynxnoz[address] [place] [address]Dr. Andrade Alvarado Basophils/100 WBC (Bld) 0.5 % Normal 0.2-2.0 [facility] Comment on above: Performed By: #### C BC ####[facility] Mtbccoddc[address] [place], [place] [address]Dr. Andrade Alvarado EO # 0.1 103/ul Normal 0.0-0.7 [facility] Comment on above: Performed By: #### C BC ####[facility] M[address]xd[address]hs[address] [place], [place] [address]Dr. Andrade Alvarado Eosinophils/100 WBC (Bld) 2.3 % Normal 0.9-7.0 [facility] Comment on above: Performed By: #### C BC ####[facility] Jcrjodnv[address] [place], [place] [address]Dr. Andrade Alvarado Erythrocyte distribution width (RBC) [Ratio] 13.7 % Normal 11.0-15.0 [facility] Comment on above: Performed By: #### C BC ####[facility] Avgskrlf[address] [place], [place] [address]Dr. Andrade Alvarado Hematocrit (Bld) [Volume fraction] 32.8 % Critically low 36.0-48.0 [facility] Comment on above: Performed By: #### C BC ####[facility] Rnhslatnmu[address] [place], [place] [address]Dr. Andrade Alvarado Hemoglobin (Bld) [Mass/Vol] 10.9 g/dL Critically low 12.0-16.0 [facility] Comment on above: Performed By: #### C BC ####[facility] Eyxfiiemcg24[address] [place] [id number]. Andrade Alvarado IG # 0.02 10e3/ul Normal 0.00-0.03 [facility] Comment on above: Performed By: #### C BC ####[facility] Lcvvozvtjg[address] [place] [address]Dr. Andrade Christiano IG % 0.5 % Normal 0.0-0.5 [facility] Comment on above: Performed By: #### C BC ####[facility] Lvcdqknbwx[address] [place] [address]Dr. Andrade Christiano LYMPH # 1.6 103/ul Normal 1.2-3.8 [facility] Comment on above: Performed By: #### C BC ####[facility] Wqgngducbm[address] [place] [address]Dr. Andrade Alvarado Lymphocytes/100 WBC (Bld) 41.8 % Normal 20.5-60.0 [facility] Comment on above: Performed By: #### C BC ####[facility] Rurnytmpep[address] [place] [address]Dr. Kellengregory Alvarado MANUAL DIFF REQ NO Normal [facility] Comment on above: Performed By: #### C BC ####[facility] Xvtegejhru06[address] [place] [address]Dr. Andrade Alvarado MCH (RBC) [Entitic mass] 31.9 pg Normal 26.7-34.0 [facility] Comment on above: Performed By: #### C BC ####[facility] Qvunwskgem0535 [place] [address]Dr. Andrade Alvarado MCHC (RBC) [Mass/Vol] 33.2 g/dL Normal 29.9-35.2 [facility] Comment on above: Performed By: #### C BC ####[facility] Iudappmlkd8396 [place] [address]Dr. Andrade Alvarado MCV (RBC) [Entitic vol] 95.9 fL Normal 81.0-99.0 [facility] Comment on above: Performed By: #### C BC ####[facility] Daeaaiosio[address] [place], [place] [id number]. Andrade Alvarado MONO # 0.5 103/ul Normal 0.3-0.8 [facility] Comment on above: Performed By: #### C BC ####[facility] Wroiwicyio70[address] [place] [phone]. Andrade Alvarado Monocytes/100 WBC (Bld) 13.1 % Critically high 1.7-12.0 [facility] Comment on above: Performed By: #### C BC ####[facility] Mkdpjycucc9243 [place] [phone]. Andrade Alvarado NEUT # 1.6 103/ul Normal 1.4-6.5 [facility] Comment on above: Performed By: #### C BC ####[facility] Pudlsdynrs[address] [place] [address]Dr. Andrade Alvarado Neutrophils/100 WBC (Bld) 41.8 % Critically low 43.0-75.0 [facility] Comment on above: Performed By: #### C BC ####[facility] Azibfwtejs7266 [place] [address]Dr. Andrade Alvarado Platelet mean volume (Bld) [Entitic vol] 8.8 fL Critically low 9.5-13.5 [facility] Comment on above: Performed By: #### C BC ####[facility] Oeaalfruom6709 [place] [phone]. Andrade Alvarado PLT 219 103/ul Normal 150-450 [facility] Comment on above: Performed By: #### C BC ####[facility] Fbaaqmehbs1724 [place] [phone]. Andrade Alvarado RBC 3.42 106/ul Critically low 4.20-5.40 [facility] Comment on above: Performed By: #### C BC ####[facility] Dlcftvfbeo0398 [place] [phone]. Andrade Alvarado WBC 3.9 103/ul Critically low 4.0-11.0 The [facility] Comment on above: Performed By: #### C BC ####[facility] Swbujuffld7325 [place] [phone]. Andrade Alvarado FERRITINon 09-16-2022 Ferritin [Mass/Vol] 292.0 ng/mL Critically high 8.0-252.0 [facility] Comment on above: Performed By: #### F ERR, B12FOL, FETIBC #### [facility] [address] [address] [address] Andrade Alvarado IRON AND TIBCon 09-16-2022 % SATURATION 76.2 % Normal [facility] Comment on above: Performed By: #### F ERR, B12FOL, FETIBC #### [facility] [address] [address] [address] Andrade Alvarado Iron [Mass/Vol] 259.0 ug/dL Critically high 50.0-170.0 [facility] Comment on above: Performed By: #### F ERR, B12FOL, FETIBC #### [facility] [address] [address] [address] Andrade Alvarado TIBC DIRECT 340.0 ug/dL Normal 250.0-450.0 [facility] Comment on above: Performed By: #### F ERR, B12FOL, FETIBC #### [facility] [address] [address] [address] Andrade Alvarado PROF 14(COMP METB)on 023 Albumin [Mass/Vol] 4.0 g/dL Normal 3.4-5.0 [facility] Comment on above: Performed By: #### C MP ####[facility] Pqahiifxdv75[address] [place] [address]Dr. Andrade Alvarado Albumin/Globulin [Mass ratio] 1.3 {ratio} Normal [facility] Comment on above: Performed By: #### C MP ####[facility] Tzpvgzqvbv6851 [place] [phone]. Andrade Alvarado ALP [Catalytic activity/Vol] 47 U/L Normal 46-116 [facility] Comment on above: Performed By: #### C MP ####[facility] Ytkfkghcph6377 [place] [address]Dr. Andrade Alvarado ALT [Catalytic activity/Vol] 23 U/L Normal 14-59 [facility] Comment on above: Performed By: #### C MP ####[facility] Euqdyciotg5843 [place] [phone]. Andrade Alvarado Anion gap [Moles/Vol] 12.1 mmol/L Normal Th e [facility] Comment on above: Performed By: #### C MP ####[facility] Frtqkixyzu7[address] [place] [phone]. Andrade Alvarado AST [Catalytic activity/Vol] 23 U/L Normal 15-37 [facility] Comment on above: Performed By: #### C MP ####[facility] Fldjibbmgc1702 [place] [phone]. Andrade Alvarado Bilirubin [Mass/Vol] 0.4 mg/dL Normal 0.2-1.0 [facility] Comment on above: Performed By: #### C MP ####[facility] Keyixrejer[address] [place] [address]Dr. Andrade Christiano Calcium [Mass/Vol] 9.3 mg/dL Normal 8.5-10.1 [facility] Comment on above: Performed By: #### C MP ####[facility] Viddvvepzi40[address] [place] [phone]. Andrade Christiano Chloride [Moles/Vol] 108 mmol/L Critically high 98-107 [facility] Comment on above: Performed By: #### C MP ####[facility] Rmddxkqbgl0792 [place] [phone]. Andrade Christiano CO2 [Moles/Vol] 26.9 mmol/L Normal 21.0-32.0 [facility] Comment on above: Performed By: #### C MP ####[facility] Cnqsaholyi6[address] [place] [phone]. Andrade Christiano Creatinine [Mass/Vol] 0.87 mg/dL Normal 0.55-1.02 [facility] Comment on above: Performed By: #### C MP ####[facility] Kjpblwuqvu0497 [place] [phone]. Andrade Christiano EGFR-AF EGYPTIAN >60 Normal >=60 [facility] Comment on above: Performed By: #### C MP ####[facility] Gpdwfkykbo97[address] [place] [address]Dr. Andrade Alvarado EGFR-NON AF EGYPTIAN >60 Normal >=60 [facility] Comment on above: Performed By: #### C MP ####[facility] Nrvdbiyfnf038[address] [place] [phone]. Andrade Alvarado Globulin (S) [Mass/Vol] 3.0 g/dL Normal [facility] Comment on above: Performed By: #### C MP ####[facility] Z[address]pplwjfp[address] [place] [address]Dr. Andrade Alvarado Glucose [Mass/Vol] 102 mg/dL Normal 74-106 [facility] Comment on above: Performed By: #### C MP ####[facility] Lolupgnxjv8[address] [place] [address]Dr. Andrade Alvarado Potassium [Moles/Vol] 4.0 mmol/L Normal 3.5-5.1 [facility] Comment on above: Performed By: #### C MP ####[facility] [address]ad[address] [place], [place] [address]Dr. Andrade Alvarado Protein [Mass/Vol] 7.0 g/dL Normal 6.4-8.2 [facility] Comment on above: Performed By: #### C MP ####[facility] [address]rptcwcxyu[address] [place], [place] [address]Dr. Andrade Alvarado Sodium [Moles/Vol] 143 mmol/L Normal 136-145 [facility] Comment on above: Performed By: #### C MP ####[facility] Pzuypalpvd94[address] [place] [address]Dr. Andrade Alvarado Urea nitrogen [Mass/Vol] 25.0 mg/dL Critically high 7.0-18.0 [facility] Comment on above: Performed By: #### C MP ####[facility] [address] [place], [place] [address]Dr. Andrade Alvarado Urea nitrogen/Creatinine [Mass ratio] 28.7 mg/mg Normal [facility] Comment on above: Performed By: #### C MP ####[facility] Umyuvsgmfe[address] [place], [place] [address]Dr. Andrade Alvarado SED RATE WESTERGRENon 2022 SED RATE 11 mm/hr Normal <=30 [facility] Comment on above: Performed By: #### S EDR ####[facility] Xtgybqrnbl1843 [place], [place] [address]Dr. Andrade Alvarado VIT B12 AND FOLATEon 023 Cobalamin (Vitamin B12) [Mass/Vol] 249.0 pg/mL Normal 193.0-986.0 [facility] Comment on above: Performed By: #### F ERR, B12FOL, FETIBC #### [facility] [address] [address] [address] Andrade Alvarado FOLATE 14.00 ng/mL Normal 8.60-58.90 [facility] Comment on above: Performed By: #### F ERR, B12FOL, FETIBC #### [facility] [address] [address] [address] Andrade Alvarado MG MAMM SCREEN 3D BRENNA CADon 2022 MG MAMM SCREEN 3D BRENNA CAD Patient: RADHA ZAIDI Exam Date: 2022 : 1960 Gender:F Ordering : DR JOHN ASHBY D.O. Admission #: [id number] Family : Order #: [id number] CLICK HERE TO VIEW EXAM RADIOLOGY REPORT PROCEDURE: MAMMOGRAM SCREENING 3D BILATERAL CAD COMPARISON: MG MAMM SCREEN BRENNA W CAD, 01/27/2017. MG MAMM BRENNA SCRN W CAD DIG, 01/09/2016. INDICATIONS: Screening mammography Calculator Name NCI Breast Cancer Risk Assessment Tool 5 Year Breast Cancer Risk 2.80% Lifetime Breast Cancer Risk 12.50% Personal Breast Cancer No Personal Ovarian Cancer No Treatments None Family Cancers Mother with breast cancer at age 40; Father with prostate cancer at age 72. LOCATION: [facility] BREAST COMPOSITION: Scattered areas fibroglandular density. FINDINGS: DIAGNOSTIC CATEGORY 1--NEGATIVE. RIGHT BREAST: No significant suspicious finding. No significant change has occurred. LEFT BREAST: No significant suspicious finding. No significant change has occurred. RECOMMENDATIONS: ROUTINE MAMMOGRAM AND CLINICAL EVALUATION IN 12 MONTHS. PLEASE NOTE: A NORMAL MAMMOGRAM DOES NOT EXCLUDE THE POSSIBILITY OF BREAST CANCER. A CLINICALLY SUSPICIOUS PALPABLE LUMP SHOULD BE BIOPSIED. Dictated by: Julian Teixeira M.D. on 06/09/2022 at 15:27 Approved by: Julian Teixeira M.D. on 06/09/2022 at 15:30 Normal [facility] CBC AUTO DIFFon 05-20-2022 BASO # 0.0 103/ul Normal 0.0-0.1 [facility] Comment on above: Performed By: #### C BC ####[facility] Fqyafyisbs65[address] [place] [address]Dr. Andrade Alvarado Basophils/100 WBC (Bld) 1.0 % Normal 0.2-2.0 [facility] Comment on above: Performed By: #### C BC ####[facility] [address]uxuhj[address] [place], [place] [address]Dr. Andrade Alvarado EO # 0.1 103/ul Normal 0.0-0.7 [facility] Comment on above: Performed By: #### C BC ####[facility] Nhasipuftf[address] [place] [address]Dr. Andrade Alvarado Eosinophils/100 WBC (Bld) 2.5 % Normal 0.9-7.0 [facility] Comment on above: Performed By: #### C BC ####[facility] Tjzptdntib27[address] [place] [address]Dr. Andrade Alvarado Erythrocyte distribution width (RBC) [Ratio] 13.0 % Normal 11.0-15.0 [facility] Comment on above: Performed By: #### C BC ####[facility] [address]wlbgub[address] [place], [place] [address]Dr. Andrade Alvarado Hematocrit (Bld) [Volume fraction] 34.9 % Critically low 36.0-48.0 [facility] Comment on above: Performed By: #### C BC ####[facility] Yqsmiicsxz[address] [place], [place] [address]Dr. Andrade Alvarado Hemoglobin (Bld) [Mass/Vol] 11.6 g/dL Critically low 12.0-16.0 [facility] Comment on above: Performed By: #### C BC ####[facility] Frejexriwp[address] [place] [phone]. Andrade Alvarado IG # 0.02 10e3/ul Normal 0.00-0.03 [facility] Comment on above: Performed By: #### C BC ####[facility] Vvnbkprgbn6203 [place] [phone]. Andrade Alvarado IG % 0.5 % Normal 0.0-0.5 [facility] Comment on above: Performed By: #### C BC ####[facility] Mdmpakcbfr[address] [place] [address]Dr. Andrade Alvarado LYMPH # 1.9 103/ul Normal 1.2-3.8 [facility] Comment on above: Performed By: #### C BC ####[facility] Gfbfandkyh[address] [place] [address]Dr. Kellengregory Alvarado Lymphocytes/100 WBC (Bld) 46.1 % Normal 20.5-60.0 [facility] Comment on above: Performed By: #### C BC ####[facility] Sewlhqjsvv30[address] [place] [address]Dr. Andrade Alvarado MANUAL DIFF REQ NO Normal [facility] Comment on above: Performed By: #### C BC ####[facility] Rcnyilhzjq5351 [place] [phone]. Andrade Alvarado MCH (RBC) [Entitic mass] 32.3 pg Normal 26.7-34.0 [facility] Comment on above: Performed By: #### C BC ####[facility] [address]rszio[address] [place], [place] [address]Dr. Andrade Alvarado MCHC (RBC) [Mass/Vol] 33.2 g/dL Normal 29.9-35.2 [facility] Comment on above: Performed By: #### C BC ####[facility] Yowqgxodcz7955 [place] [phone]. Andrade Alvarado MCV (RBC) [Entitic vol] 97.2 fL Normal 81.0-99.0 [facility] Comment on above: Performed By: #### C BC ####[facility] Yrdqbmmaif4132 [place], [place] [address]Sh. Andrade Alvarado MONO # 0.5 103/ul Normal 0.3-0.8 [facility] Comment on above: Performed By: #### C BC ####[facility] Itfedsisty8398 [place], [place] [address]Ir. Andrade Alvarado Monocytes/100 WBC (Bld) 13.5 % Critically high 1.7-12.0 [facility] Comment on above: Performed By: #### C BC ####[facility] Byaezkxkxw49[address] [place] [phone]. Andrade Alvarado NEUT # 1.5 103/ul Normal 1.4-6.5 [facility] Comment on above: Performed By: #### C BC ####[facility] Roeqinwyjo27[address] [place] [phone]. Andrade Alvarado Neutrophils/100 WBC (Bld) 36.4 % Critically low 43.0-75.0 [facility] Comment on above: Performed By: #### C BC ####[facility] Lyuqlgozhd0906 [place] [phone]. Andrade Alvarado Platelet mean volume (Bld) [Entitic vol] 8.9 fL Critically low 9.5-13.5 [facility] Comment on above: Performed By: #### C BC ####[facility] Xzevtrkjrq2977 [place] [phone]. Andrade Alvarado PLT 237 103/ul Normal 150-450 [facility] Comment on above: Performed By: #### C BC ####[facility] Xkcxbsbyfo8459 [place] [phone]. Andrade Alvarado RBC 3.59 106/ul Critically low 4.20-5.40 [facility] Comment on above: Performed By: #### C BC ####[facility] Iwkhlrdupo6487 [place] [phone]. Andrade Alvarado WBC 4.0 103/ul Normal 4.0-11.0 [facility] Comment on above: Performed By: #### C BC ####[facility] Xxxwqqdmuy1210 [place], [place] [address]RiDr. Andrade Alvarado CRPon 05-20-2022 CRP [Mass/Vol] mg/L Normal <=1.0 [facility] Comment on above: Performed By: #### C MP, CRP, TSH ####[facility] Womnriaviw5576 [place], [place] [address]VkDr. Andrade Alvarado PROF 14(COMP METB)on 022 Albumin [Mass/Vol] 4.2 g/dL Normal 3.4-5.0 [facility] Comment on above: Performed By: #### C MP, CRP, TSH #### [facility] [address] [address] [address] Andrade Alvarado Albumin/Globulin [Mass ratio] 1.3 {ratio} Normal [facility] Comment on above: Performed By: #### C MP, CRP, TSH #### [facility] [address] [address] [address] Andrade Alvarado ALP [Catalytic activity/Vol] 50 U/L Normal 46-116 [facility] Comment on above: Performed By: #### C MP, CRP, TSH #### [facility] [address] [address] [address] Andrade Alvarado ALT [Catalytic activity/Vol] 23 U/L Normal 14-59 [facility] Comment on above: Performed By: #### C MP, CRP, TSH #### [facility] [address] [address] [address] Andrade Alvarado Anion gap [Moles/Vol] 11.3 mmol/L Normal [facility] Comment on above: Performed By: #### C MP, CRP, TSH #### [facility] [address] [address] [address] Andrade Alvarado AST [Catalytic activity/Vol] 23 U/L Normal 15-37 [facility] Comment on above: Performed By: #### C MP, CRP, TSH #### [facility] [address] [address] [address] Andrade Alvarado Bilirubin [Mass/Vol] 0.5 mg/dL Normal 0.2-1.0 [facility] Comment on above: Performed By: #### C MP, CRP, TSH #### [facility] [address] [address] [address] Andrade Alvarado Calcium [Mass/Vol] 9.3 mg/dL Normal 8.5-10.1 [facility] Comment on above: Performed By: #### C MP, CRP, TSH #### [facility] [address] [address] [address] Andrade Alvarado Chloride [Moles/Vol] 104 mmol/L Normal 98-107 [facility] Comment on above: Performed By: #### C MP, CRP, TSH #### [facility] [address] [place] [address] Dr. Andrade Alvarado CO2 [Moles/Vol] 27.2 mmol/L Normal 21.0-32.0 [facility] Comment on above: Performed By: #### C MP, CRP, TSH #### [facility] [address] [place] [address] Dr. Andrade Alvarado Creatinine [Mass/Vol] 0.99 mg/dL Normal 0.55-1.02 [facility] Comment on above: Performed By: #### C MP, CRP, TSH #### [facility] [address] [place] [address] Dr. Andrade Alvarado EGFR-AF EGYPTIAN >60 Normal >=60 [facility] Comment on above: Performed By: #### C MP, CRP, TSH #### [facility] [address] [place] [address] Dr. Andrade Alvarado EGFR-NON AF EGYPTIAN 57 mL/min/1.73m2 Critically low >=60 [facility] Comment on above: Performed By: #### C MP, CRP, TSH #### [facility] [address] [place] [address] Dr. Andrade Alvarado Globulin (S) [Mass/Vol] 3.3 g/dL Normal [facility] Comment on above: Performed By: #### C MP, CRP, TSH #### [facility] [address] [place] [address] Dr. Andrade Alvarado Glucose [Mass/Vol] 97 mg/dL Normal 74-106 [facility] Comment on above: Performed By: #### C MP, CRP, TSH #### [facility] [address] [address] [address] Andrade Alvarado Potassium [Moles/Vol] 3.5 mmol/L Normal 3.5-5.1 [facility] Comment on above: Performed By: #### C MP, CRP, TSH #### [facility] [address] [address] [address] Andrade Alvarado Protein [Mass/Vol] 7.5 g/dL Normal 6.4-8.2 [facility] Comment on above: Performed By: #### C MP, CRP, TSH #### [facility] [address] [address] [address] Andrade Alvarado Sodium [Moles/Vol] 139 mmol/L Normal 136-145 [facility] Comment on above: Performed By: #### C MP, CRP, TSH #### [facility] [address] [address] [address] Andrade Alvarado Urea nitrogen [Mass/Vol] 22.0 mg/dL Critically high 7.0-18.0 [facility] Comment on above: Performed By: #### C MP, CRP, TSH #### [facility] [address] [address] [address] Andrade Alvarado Urea nitrogen/Creatinine [Mass ratio] 22.2 mg/mg Normal [facility] Comment on above: Performed By: #### C MP, CRP, TSH #### [facility] [address] [address] [address] Andrade Alvarado SED RATE [facility] [facility] 2021 SED RATE 22 mm/hr Normal <=30 [facility] Comment on above: Performed By: #### S EDR ####[facility] [address] [place] [address]Dr. Andrade Alvarado TSHon 05-20-2022 TSH 1.373 uIU/mL Normal 0.358-3.740 [facility] Comment on above: Performed By: #### C MP, CRP, TSH #### [facility] Laboratory [address] [place], [place] [address] Dr. Andrade Alvarado CBC AUTO DIFFon 02-16-2022 BASO # 0.0 103/ul Normal 0.0-0.1 [facility] Comment on above: Performed By: #### C BC ####[facility] [address] [place] [id number] Alvarado Basophils/100 WBC (Bld) 0.9 % Normal 0.2-2.0 [facility] Comment on above: Performed By: #### C BC ####[facility] [address] [place] [address]Dr. Andrade Alvarado EO # 0.1 103/ul Normal 0.0-0.7 [facility] Comment on above: Performed By: #### C BC ####[facility] [address] [place] [address]DrMehreen Alvarado Eosinophils/100 WBC (Bld) 2.3 % Normal 0.9-7.0 [facility] Comment on above: Performed By: #### C BC ####[facility] [address]sb[address] [place] [address]DrMehreen Alvarado Erythrocyte distribution width (RBC) [Ratio] 12.6 % Normal 11.0-15.0 [facility] Comment on above: Performed By: #### C BC ####[facility] [address] [place] [address]DrMehreen Alvarado Hematocrit (Bld) [Volume fraction] 37.8 % Normal 36.0-48.0 [facility] Comment on above: Performed By: #### C BC ####[facility] [address] [place] [id number] Alvarado Hemoglobin (Bld) [Mass/Vol] 12.3 g/dL Normal 12.0-16.0 [facility] Comment on above: Performed By: #### C BC ####[facility] [address] [place], [place] [address]DrMehreen Alvarado IG # 0.02 10e3/ul Normal 0.00-0.03 [facility] Comment on above: Performed By: #### C BC ####[facility] [address]mswi[address] [place] [address]DrMehreen Alvarado IG % 0.5 % Normal 0.0-0.5 [facility] Comment on above: Performed By: #### C BC ####[facility] [address] [place] [address]DrMehreen Alvarado LYMPH # 2.1 103/ul Normal 1.2-3.8 [facility] Comment on above: Performed By: #### C BC ####[facility] Yfr[address]rhzwv[address] [place] [address]DrMehreen Alvarado Lymphocytes/100 WBC (Bld) 48.3 % Normal 20.5-60.0 [facility] Comment on above: Performed By: #### C BC ####[facility] [address] [place], [place] [address]DrMehreen Alvarado MANUAL DIFF REQ NO Normal [facility] Comment on above: Performed By: #### C BC ####[facility] [address] [place] [phone]. Andrade Christiano MCH (RBC) [Entitic mass] 31.9 pg Normal 26.7-34.0 [facility] Comment on above: Performed By: #### C BC ####[facility] [address] [place], [place] [id number] Kellengregory Alvarado MCHC (RBC) [Mass/Vol] 32.5 g/dL Normal 29.9-35.2 [facility] Comment on above: Performed By: #### C BC ####[facility] [address] [place], [place] [address]DrMehreen Kellengregory Alvarado MCV (RBC) [Entitic vol] 97.9 fL Normal 81.0-99.0 [facility] Comment on above: Performed By: #### C BC ####[facility] [address]ubrze[address] [place] [id number] Alvarado MONO # 0.5 103/ul Normal 0.3-0.8 [facility] Comment on above: Performed By: #### C BC ####[facility] [address] [place] [id number]. Andrade Alvarado Monocytes/100 WBC (Bld) 11.2 % Normal 1.7-12.0 [facility] Comment on above: Performed By: #### C BC ####[facility] [address] [place] [phone]. Andrade Alvarado NEUT # 1.6 103/ul Normal 1.4-6.5 [facility] Comment on above: Performed By: #### C BC ####[facility] [address]wlxsb[address] [place] [address]Dr. Andrade Alvarado Neutrophils/100 WBC (Bld) 36.8 % Critically low 43.0-75.0 [facility] Comment on above: Performed By: #### C BC ####[facility] [address] [place] [address]Dr. Andrade Alvarado Platelet mean volume (Bld) [Entitic vol] 9.9 fL Normal 9.5-13.5 [facility] Comment on above: Performed By: #### C BC ####[facility] [address] [place] [address]Dr. Andrade Alvarado PLT 213 103/ul Normal 150-450 [facility] Comment on above: Performed By: #### C BC ####[facility] Ecqu[address]mtqn[address] [place] [phone]. Andrade Alvarado RBC 3.86 106/ul Critically low 4.20-5.40 [facility] Comment on above: Performed By: #### C BC ####[facility] [address] [place] [id number]. Andrade Alvarado WBC 4.4 103/ul Normal 4.0-11.0 [facility] Comment on above: Performed By: #### C BC ####[facility] [address] [place] [phone] Alvarado PROF 14(COMP METB)on 022 Albumin [Mass/Vol] 4.2 g/dL Normal 3.4-5.0 [facility] Comment on above: Performed By: #### C MP #### [facility] [address] [place] [address] Dr. Andrade Alvarado Albumin/Globulin [Mass ratio] 1.3 {ratio} Normal [facility] Comment on above: Performed By: #### C MP #### [facility] [address] [place] [address] [address] Andrade Alvarado ALP [Catalytic activity/Vol] 61 U/L Normal 46-116 [facility] Comment on above: Performed By: #### C MP #### [facility] [address] [place] [address] [address] Andrade Alvarado ALT [Catalytic activity/Vol] 23 U/L Normal 14-59 [facility] Comment on above: Performed By: #### C MP #### [facility] [address] [place] [address] Dr. Andrade Alvarado Anion gap [Moles/Vol] 15.5 mmol/L Normal [facility] Comment on above: Performed By: #### C MP #### [facility] [address] [place] [address] Dr. Andrade Alvarado AST [Catalytic activity/Vol] 20 U/L Normal 15-37 [facility] Comment on above: Performed By: #### C MP #### [facility] [address] [place] [address] Dr. Andrade Alvarado Bilirubin [Mass/Vol] 0.5 mg/dL Normal 0.2-1.0 [facility] Comment on above: Performed By: #### C MP #### [facility] [address] [place] [address] Dr. Andrade Alvarado Calcium [Mass/Vol] 9.1 mg/dL Normal 8.5-10.1 [facility] Comment on above: Performed By: #### C MP #### [facility] [address] [place] [address] Dr. Andrade Alvarado Chloride [Moles/Vol] 106 mmol/L Normal 98-107 [facility] Comment on above: Performed By: #### C MP #### [facility] [address] [place] [address] [address] Andrade Alvarado CO2 [Moles/Vol] 25.6 mmol/L Normal 21.0-32.0 [facility] Comment on above: Performed By: #### C MP #### [facility] [address] [place] [address] [address] Andrade Alvarado Creatinine [Mass/Vol] 0.97 mg/dL Normal 0.55-1.02 [facility] Comment on above: Performed By: #### C MP #### [facility] [address] [place] [address] [address] Andrade Alvarado EGFR-AF EGYPTIAN >60 Normal >=60 [facility] Comment on above: Performed By: #### C MP #### [facility] [address] [place] [address] [address] Andrade Alvarado EGFR-NON AF EGYPTIAN 58 mL/min/1.73m2 Critically low >=60 [facility] Comment on above: Performed By: #### C MP #### [facility] [address] [place] [address] [address] Andrade Alvarado Globulin (S) [Mass/Vol] 3.2 g/dL Normal [facility] Comment on above: Performed By: #### C MP #### [facility] [address] [place] [address] [address] Andrade Alvarado Glucose [Mass/Vol] 91 mg/dL Normal 74-106 [facility] Comment on above: Performed By: #### C MP #### [facility] [address] [place] [address] [address] Andrade Alvarado Potassium [Moles/Vol] 4.1 mmol/L Normal 3.5-5.1 [facility] Comment on above: Performed By: #### C MP #### [facility] [address] [place] [address] [address] Andarde Alvarado Protein [Mass/Vol] 7.4 g/dL Normal 6.4-8.2 [facility] Comment on above: Performed By: #### C MP #### [facility] [address] [place] [address] [address] Andrade Alvarado Sodium [Moles/Vol] 143 mmol/L Normal 136-145 [facility] Comment on above: Performed By: #### C MP #### [facility] [address] [place] [address] Dr. Andrade Alvarado Urea nitrogen [Mass/Vol] 18.0 mg/dL Normal 7.0-18.0 [facility] Comment on above: Performed By: #### C MP #### [facility] [address] [place] [address] [address] Andrade Alvarado Urea nitrogen/Creatinine [Mass ratio] 18.6 mg/mg Normal [facility] Comment on above: Performed By: #### C MP #### [facility] [address] [place] [address] Dr. Andrade Alvarado SED RATE [facility] 2021 SED RATE 15 mm/hr Normal <=30 [facility] Comment on above: Performed By: #### S EDR #### [facility] [address] [place] [address] Dr. Andrade Alvarado KNEE LEFT 3 Son 04-25-2020 KNEE LEFT 3 [facility] Department of Radiology [address] [place] [id number] Patient Name: RADHA ZAIDI : 1960 Sex: F Age: Race: White Pt. Location: Patient Status: Ordered Date: 04/25/2020 8:25:00 AM Completed Date: 04/25/2020 08:24 AM Requesting Provider: ALEXANDRA MARS Attending Provider: Report Copy To: Signs & Symptoms: S82.832K Oth fx upr and low end l fibula, subs for clos fx w nonunion I10 History: Wood Comments: Evaluate Exam: KNEE LEFT 3 VWS KNEE LEFT 3 VWS 04/25/2020 8:24 AM CLINICAL INDICATIONS: S82.832K Oth fx upr and low end l fibula, subs for clos fx w nonunion I10 TECHNOLOGIST COMMENTS: left knee surgery 03/12/20 follow up QUESTION FOR THE RADIOLOGIST: Evaluate PROTOCOL: AP,Lateral and Tangential views were obtained. COMPARISON: Left tibia and fibula radiographs from 03/27/2020 FINDINGS: The fracture of the proximal shaft of the fibula is redemonstrated, unchanged in position and with some additional callus formation since the previous study. The lucent fracture line however remains completely visible. IMPRESSION: Fracture of the proximal shaft of the fibula healing in position unchanged with lucent fracture line still remaining clearly visible. Electronically signed: Eliezer Cam. Transcribed by: [email or web address], User Resident: Electronically Signed by: ELIEZER CAM @ 04/25/2020 11:44 AM Normal [facility] Comment on above: Order Comment: Evalu ate TIBIA FIBULA LEFTon 03-27-20 20 TIBIA FIBULA LEFT [facility] Department of Radiology [address] [place] [id number] Patient Name: RADHA ZAIDI : 1960 Sex: F Age: Race: White Pt. Location: Patient Status: Ordered Date: 03/27/2020 8:05:00 AM Completed Date: 03/27/2020 08:35 AM Requesting Provider: CHARLI LUKE Attending Provider: Report Copy To: Signs & Symptoms: S82.832A Oth fracture of upper and lower end of left fibula, init I10 History: Wood Comments: , , , Ordering Provider - CHARLI LUKE PA-C , Exam: TIBIA FIBULA LEFT TIBIA FIBULA LEFT 03/27/2020 8:35 AM CLINICAL INDICATIONS: S82.832A Oth fracture of upper and lower end of left fibula, init I10. Pain TECHNOLOGIST COMMENTS: Left tibia f/u QUESTION FOR THE RADIOLOGIST: , , , Ordering Provider - CHARLI LUKE PA-C , PROTOCOL: AP(PA) and Lateral views were obtained. COMPARISON: 02/04/2020 and 03/12/2020 FINDINGS: Patient is imaged in a plaster splint. Postsurgical change to the proximal fibula is appreciated. Alignment is satisfactory. Callus formation particularly laterally is present. No acute tibial complication. Ongoing follow-up is planned. IMPRESSION: Satisfactory alignment. Ongoing healing Electronically signed: Crissy Dubon. Transcribed by: [email or web address], User Resident: Electronically Signed by: CRISSY DUBON @ 03/27/2020 09:11 AM Normal [facility] Comment on above: Order Comment: Evalu ate Operative Reporton 0 Operative Report MR#: [id number] [facility] Pt. Name: Radha Zaidi Room #: 0C Discharge Date: Birthdate: 1960 OPERATIVE REPORT DATE OF SURGERY: 03/12/2020 SURGEON: Maryuri Alexander M.D. ATTENDING PHYSICIAN: Maryuri Alexander M.D. ASSISTANTS: 1. Kulwinder Miranda M.D. 2. Tiera Paniagua M.D. 3. Hugo Camarena MD. PREOPERATIVE DIAGNOSIS: Left proximal fibula nonunion. POSTOPERATIVE DIAGNOSIS: Left proximal fibula nonunion. PROCEDURES PERFORMED: Left proximal fibula nonunion takedown with nonunion revision. DRAINS: None. SPECIMENS: None. IMPLANTS: Ivette Gamma BSM putty bone substitute. ANESTHESIA: General. COMPLICATIONS: None. INDICATIONS FOR PROCEDURE: This is a 59-year-old female, who suffered a left proximal fibula fracture approximately 2 years ago. The patient has continued to have pain along the proximal fibula and both x-rays as well as CT scan demonstrated nonunion. Due to failure of conservative treatment with oral anti-inflammatories as well as bone stimulation, discussion was had with the patient regarding continued nonoperative versus operative management. Risks of the surgery, specifically significant risk of injury to one of the surrounding peroneal nerves was discussed in detail with the patient, and the patient elected to proceed with surgical intervention. PROCEDURE IN DETAIL: The patient was met in the preoperative holding area where the operative site was marked by the attending physician. Informed consent was reviewed and deemed appropriate. The patient was taken back to the operating room. She was placed supine on the operating table. General anesthesia was induced. Preoperative antibiotics were administered. A tourniquet was placed on the left lower extremity and the left lower extremity was then sterilely prepped and draped in the usual fashion. A a time-out was performed, we began by making an incision directly over the fibular head. We used blunt dissection down to the level of the fibula and then placed a pin at the fibular head. We used fluoroscopy to direct the pin down into the fibular shaft. We initially found that this trajectory was not appropriate and thus we made a second smaller incision more proximal and placed a second pin at this angle in order to try and have a better pathway for the screw. Despite multiple attempts at passing the K-wires down the fibular shaft, we were not able to get the appropriate alignment for the K-wire. We then attempted using a cannulated drill in order to better guide the pathway for ultimate screw fixation. However, again this was unsuccessful as we were unable to get the appropriate angle due to concerns for injury to the peroneal nerve. Thus, we made a large incision and dissected down to the fracture site using blunt dissection. Multiple branches of the peroneal nerves were encountered and were bluntly retracted. We then used a [place] as well as a hemostat to debride the hypertrophic nonunion, which was found to have abundant fibrous tissue. Once the nonunion was debrided, we then used the Ivette gamma BSM putty bone substitute and placed this around the nonunion site, ensuring to avoid the adjacent peroneal nerve. Once this was complete, fluoroscopy confirmed appropriate position of the bone putty and the wound was then thoroughly irrigated and closed in a layered fashion using 3-0 Vicryl followed by 3-0 Novafil. The wound was then dressed with Xeroform followed by 4x4s and Webril. The patient was placed in a short-leg splint in maximum dorsiflexion in order to help support the foot due to proximity to the peroneal nerve throughout the case. The patient was then awoken from anesthesia and was transferred to the PACU in stable condition. POSTOPERATIVE INSTRUCTIONS: The patient will remain nonweightbearing to the left lower extremity at all times. She should keep her splint on clean, dry, and intact until followup with Dr. Alexander in clinic in 10-[address] Alexander was present for all critical portions of the case and was otherwise immediately able to assist. Electronically Signed by: Maryuri Alexander M.D. 03/14/2020 07:46 A Maryuri Alexander M.D. I was present for the evangelista and critical portions and I was otherwise immediately available to assist. Date Dict: 03/12/2020/04:38 P/Tiera Paniagua MD Date Trans: 03/13/2020 02:26 A/bryson YBARRA_JN:[id number] cc: John Ashby D.O. [address] [place] [phone] Normal [facility] KNEE LEFT 1 OR 2 Son 03-12 KNEE LEFT 1 OR 2 VWS [facility] Department of Radiology [address] [place] [phone] Patient Name: RADHA ZAIDI : 1960 Sex: F Age: Race: White Pt. Location: OUTP Patient Status: Ordered Date: 03/12/2020 12:00:00 PM Completed Date: 03/12/2020 02:31 PM Requesting Provider: MARYURI ALEXANDER Attending Provider: MARYURI ALEXANDER Report Copy To: Signs & Symptoms: LEFT PROXIMAL FIBULA NONUNION SCREW FIXATION, BIOPSY, AND BONE GRAFT History: Comments: LEFT PROXIMAL FIBULA NONUNION SCREW FIXATION, BIOPSY, AND BONE GRAFT Exam: KNEE LEFT 1 OR 2 VWS Intraoperative fluoroscopic guidance HISTORY: Fracture fixation. COMPARISON: 02/04/2020 radiographs. IMPRESSION: 1. There are 3 images, total time of 2.6 minutes. 2. Hardware projects over the proximal fibular shaft fracture. Electronically signed: Rahul James. Transcribed by: [email or web address], User Resident: Electronically Signed by: RAHUL JAMES @ 03/12/2020 03:20 PM Normal [facility] Comment on above: Order Comment: Evalu ate POC GLUCOSE LABon 03-12-2020 Glucose [Mass/Vol] 103 mg/dL High 70-100 [facility] Comment on above: Performed By: #### [id number] ####[facility] [place] [address], [place] *MRSA/MSSA DNA NASALon 03-08 *MRSA/MSSA DNA NASAL Clinical Report: (D ) Specimen: NASAL SWAB Collected: 03/08/2020 14:02 Status: Final Last Updated: 03/09/2020 09:30 MSSA DNA (Final) Negative MRSA DNA (Final) Negative Normal [facility] Comment on above: Performed By: #### 3 [id number] ####[facility] *SARS-CoV-2 COVID-19on 03-08 FQPA-FXVPT-18 Not Detected Normal Not Detected [facility] Comment on above: Order Comment: The A ptima SARS-CoV-2 assay is a nucleic acid amplification test intended for the qualitative detection of RNA from SARS-CoV-2 isolated and purified from nasopharyngeal ([employer]),oropharyngeal (OP), nasal swab, sputum, and bronchoalveolar lavage (BAL) specimens from patients with signs and symptoms of infection who are suspected of COVID-19. Results are for the identification of SARS-CoV-2 RNA. The SARS-CoV-2 RNA is generally detectable during the acute phase of infection. The Aptima SARS-CoV-2 Assay on the Infoxel and Hubbard Fusion system is intended for use by laboratory personnel specifically instructed and trained in the operation of the Hubbard and Hubbard Fusion system. The Aptima SARS-CoV-2 assay is only for use under the Food and Drug Administration Emergency Use Authorization. Testing is limited to laboratories certified under the Clinical Laboratory Improvement Amendments of 1988 (CLIA), 42 U.S.C. ???263a, to perform high complexity tests. Not Detected: Not detected does not preclude SARS-CoV-2 infection and should not be used as the sole basis for patient management decisions. Not detected results must be combined with clinical observations, patient history, and epidemiological information. Performed By: #### 3 [id number] #### [facility] [address] [place] [address], [facility] APTTon 03-08-2020 aPTT Coag (Bld) [Time] 26.9 s Normal 25.0-35.0 [facility] Comment on above: Result Comment: ALL RESULTS MUST BE INTERPRETED WITH RESPECT TO BLOOD DRAWING ARTIFACT OR DILUTION ERROR OF ANTICOAGULANT AT THE TIME OF SAMPLING. THE APTT SHOULD NOT BE USED TO MONITOR UNFRACTIONATED HEPARIN THERAPY, THIS LABORATORY NO LONGER HAS AN ESTABLISHED THERAPEUTIC RANGE BASED ON THE APTT. IT IS RECOMMENDED THAT THE UFH - HEPARIN ASSAY (ANTI-XA ACTIVITY) BE USED FOR THIS PURPOSE. Performed By: #### 5 [id number], [id number] ####[facility] [place] [address], [facility] BASIC METABOLIC PANELon 08- Calcium [Mass/Vol] 9.7 mg/dL Normal 8.6-10.3 [facility] Comment on above: Performed By: #### 0 [id number] #### [facility] [address] [place] [address], [facility] Chloride [Moles/Vol] 103 mmol/L Normal 98-107 [facility] Comment on above: Performed By: #### 0 [id number] #### [facility] [address] [place] [address], [facility] CO2 [Moles/Vol] 31 mmol/L Normal 21-31 [facility] Comment on above: Performed By: #### 0 [id number] #### [facility] [address] [place] [address], [facility] Creatinine [Mass/Vol] 0.87 mg/dL Normal 0.60-1.20 [facility] Comment on above: Performed By: #### 0 0071 #### [facility] [address] [place] [address], [facility] GFR/1.73 sq M predicted among blacks MDRD (S/P/Bld) [Vol rate/Area] mL/min/{1.73_m2} Normal >60 [facility] Comment on above: Performed By: #### 0 [id number] #### [facility] [address] [place] [address], [facility] GFR/1.73 sq M predicted among non-blacks MDRD (S/P/Bld) [Vol rate/Area] mL/min/{1.73_m2} Normal >60 [facility] Comment on above: Performed By: #### 0 [id number] #### [facility] [address] [place] [address], [facility] Glucose [Mass/Vol] 106 mg/dL High 70-100 [facility] Comment on above: Performed By: #### 0 [id number] #### [facility] [address] [place] [address], [facility] Potassium [Moles/Vol] 4.3 mmol/L Normal 3.5-5.1 [facility] Comment on above: Performed By: #### 0 0071 #### [facility] [address] [place] [address], [facility] Sodium [Moles/Vol] 141 mmol/L Normal 136-145 [facility] Comment on above: Performed By: #### 0 0071 #### [facility] [address] [facility] [place] [address], [facility] Urea nitrogen [Mass/Vol] 14 mg/dL Normal 7-25 [facility] Comment on above: Performed By: #### 0 [id number] #### [facility] [address] [facility] [place] [address], [facility] CBC W/DIFFon 03-08-2020 ABS BASOPHILS 0.1 10*3/uL Normal 0.0-0.2 [facility] Comment on above: Performed By: #### 5 3 ####[facility] [facility] [address], [facility] ABS IMM GRANS 0.0 10*3/uL Normal 0.0-0.2 [facility] Comment on above: Performed By: #### 5 010 ####[facility] [facility] [place] [address], [facility] ABS NEUTROPHILS 3.4 10*3/uL Normal 1.6-7.6 [facility] Comment on above: Performed By: #### 5 010 ####[facility] [facility].[address] Basophils/100 WBC (Bld) 0.8 % Normal 0.0-1.0 [facility] Comment on above: Performed By: #### 5 0103 ####[facility] [facility].[address] Eosinophils (Bld) [#/Vol] 0.7 10*3/uL High 0.0-0.5 [facility] Comment on above: Performed By: #### 5 0103 ####[facility] [facility].[address] Eosinophils/100 WBC (Bld) 9.5 % High 0.0-6.0 [facility] Comment on above: Performed By: #### 5 3 ####[address] Erythrocyte distribution width (RBC) [Ratio] 13.6 % Normal 11.5-15.0 [facility] Comment on above: Performed By: #### 3 ####[facility] [facility].[address] Hematocrit (Bld) [Volume fraction] 42.5 % Normal 36.0-45.0 [facility] Comment on above: Performed By: #### 5 3 ####[facility] [facility].[address] Hemoglobin (Bld) [Mass/Vol] 13.7 g/dL Normal 12.0-15.0 [facility] Comment on above: Performed By: #### 5 3 ####[facility] [facility].[address] IMMATURE GRANS 0.3 % Normal 0.0-1.0 [facility] Comment on above: Performed By: #### 5 3 ####[facility] [facility].[address] Lymphocytes (Bld) [#/Vol] 2.7 10*3/uL Normal 1.2-4.0 [facility] Comment on above: Performed By: #### 5 0103 ####[facility] Lymphocytes/100 WBC (Bld) 35.1 % Normal 20.0-45.0 [facility] Comment on above: Performed By: #### 3 ####[facility] MCH (RBC) [Entitic mass] 31.2 pg Normal 27.0-33.0 [facility] Comment on above: Performed By: #### 102 ####[address] MCHC (RBC) [Mass/Vol] 32.2 g/dL Normal 32.0-35.0 [facility] Comment on above: Performed By: #### 3 ####[facility] MCV (RBC) [Entitic vol] 96.8 fL Normal 82.0-98.0 [facility] Comment on above: Performed By: #### 3 ####[facility] Monocytes (Bld) [#/Vol] 0.8 10*3/uL Normal 0.1-1.0 [facility] Comment on above: Performed By: #### 5 3 ####[facility] [place] [address] MONOS 9.8 % Normal 5.0-12.0 [facility] Comment on above: Performed By: #### 3 ####[facility] [place] [address] Neutrophils/100 WBC (Bld) 44.5 % Normal 40.0-72.0 [facility] Comment on above: Performed By: #### 5 0103 ####[facility] [facility].[address] Nucleated RBC/100 WBC (Bld) [Ratio] 0 % Normal 0-0 [facility] Comment on above: Performed By: #### 5 0103 ####[facility] [facility].[address] PLAT CNT 230 10*3/uL Normal 150-400 [facility] Comment on above: Performed By: #### 5 0103 ####[facility] [facility].[address] RBC (Bld) [#/Vol] 4.39 10*6/uL Normal 3.80-5.00 [facility] Comment on above: Performed By: #### 5 0103 ####[facility] [facility].[address] WBC (Bld) [#/Vol] 7.72 10*3/uL Normal 4.00-10.60 [facility] Comment on above: Performed By: #### 5 0103 ####[facility] [place] [address].[address] PROTHROMBIN TIMEon 0 INR Coag (PPP) [Relative time] 0.99 {INR} Normal 0.91-1.16 [facility] Comment on above: Result Comment: ACCC P RECOMMENDED INR FOR WARFARIN THERAPY -------- ------- CONDITION INR PROPHYLAXIS OF VENOUS THROMBOSIS 2-3 (HIGH-RISK SURGERY) TREATMENT OF VENOUS THROMBOSIS 2-3 TREATMENT OF PULMONARY EMBOLISM 2-3 PREVENTION OF SYSTEMIC EMBOLISM: 2-3 ACUTE MYOCARDIAL INFARCTION TISSUE HEART VALVES VALVULAR HEART DISEASE ATRIAL FIBRILLATION RECURRENT SYSTEMIC EMBOLISM MECHANICAL HEART VALVE 2.5-3.5 FROM: ORAL ANTICOAGULANTS. MECHANISM OF ACTION, CLINICAL EFFECTIVENESS, AND OPTIMAL THERAPEUTIC RANGE. CHEST 1995;108:231S-246S. Performed By: #### 5 6101, 68126 #### [facility] [address] PT Coag (PPP) [Time] 13.1 s Normal 12.3-14.8 [facility] Comment on above: Result Comment: ALL RESULTS MUST BE INTERPRETED WITH RESPECT TO BLOOD DRAWING ARTIFACT OR DILUTION ERROR OF ANTICOAGULANT AT THE TIME OF SAMPLING. Performed By: #### 5 6101, 90610 #### [facility] [address] ALBUMIN BLOODon 02-04-2020 Albumin [Mass/Vol] 4.5 g/dL Normal 3.5-5.7 [facility] Comment on above: Performed By: #### 3 0728, 18330, 66026, 44698, 88912 #### [facility] [address] BASIC METABOLIC PANELon 01-09 Calcium [Mass/Vol] 9.5 mg/dL Normal 8.6-10.3 [facility] Comment on above: Performed By: #### 3 0728, 60691, 61799, 95149, 84798 #### [facility] [address] [place] [address], [facility] Chloride [Moles/Vol] 105 mmol/L Normal 98-107 [facility] Comment on above: Performed By: #### 3 0728, 03509, 51525, 46507, 06010 #### [facility] [address] [place] [address], [place] CO2 [Moles/Vol] 27 mmol/L Normal 21-31 [facility] Comment on above: Performed By: #### 3 0728, 34051, 36460, 56439, 56848 #### [facility] [address] [place] [address], [place] Creatinine [Mass/Vol] 0.81 mg/dL Normal 0.60-1.20 [facility] Comment on above: Performed By: #### 3 0728, 96284, 17843, 97865, 21277 #### [facility] [address] [place] [address], [place] GFR/1.73 sq M predicted among blacks MDRD (S/P/Bld) [Vol rate/Area] mL/min/{1.73_m2} Normal >60 [facility] Comment on above: Performed By: #### 3 0728, 67456, 61876, 45685, 69667 #### [facility] [address] [place] [address], [place] GFR/1.73 sq M predicted among non-blacks MDRD (S/P/Bld) [Vol rate/Area] mL/min/{1.73_m2} Normal >60 [facility] Comment on above: Performed By: #### 3 0728, 15931, 45026, 27935, 29514 #### [facility] [address] [place] [address], [place] Glucose [Mass/Vol] 115 mg/dL High 70-100 [facility] Comment on above: Performed By: #### 3 0728, 16164, 18249, 44548, 34886 #### [facility] [address] [place] [address], [place] Potassium [Moles/Vol] 3.9 mmol/L Normal 3.5-5.1 [facility] Comment on above: Performed By: #### 3 0728, 15385, 85591, 07178, 94942 #### [facility] [address] [facility]. [address] Sodium [Moles/Vol] 140 mmol/L Normal 136-145 [facility] Comment on above: Performed By: #### 3 0728, 20639, 79604, 58395, 33799 #### [facility] [address] [facility]. [address] Urea nitrogen [Mass/Vol] 20 mg/dL Normal 7-25 [facility] Comment on above: Performed By: #### 3 0728, 03033, 04005, 74407, 21087 #### [facility] [address] [facility]. [address] PREALBUMINon 02-04-2020 Prealbumin [Mass/Vol] 24.0 mg/dL Normal 17.0-34.0 [facility] Comment on above: Performed By: #### 3 0728, 74747, 48083, 68332, 96299 #### [facility] [address] [facility]. [address] TIBIA FIBULA LEFTon 02-04-20 20 TIBIA FIBULA LEFT [facility] Department of Radiology [address] [place] [id number] Patient Name: RADHA ZAIDI : 1960 Sex: F Age: Race: White Pt. Location: Patient Status: Ordered Date: 02/04/2020 9:35:00 AM Completed Date: 02/04/2020 09:55 AM Requesting Provider: MARYURI ALEXANDER Attending Provider: Report Copy To: Signs & Symptoms: S82.832A Oth fracture of upper and lower end of left fibula, init I10 History: Comments: Exam: TIBIA FIBULA LEFT TIBIA FIBULA LEFT 02/04/2020 9:55 AM CLINICAL INDICATIONS: S82.832A fracture of upper and lower end of left fibula, init I10 TECHNOLOGIST COMMENTS: Left tib/fib fracture June 2018 patient states getting second opinion complains of pain PROTOCOL: AP(PA) and Lateral views were obtained. COMPARISON: No comparison examination submitted at the time of interpretation. FINDINGS: There is an oblique fracture of the proximal fibular shaft with calcification at the fracture site. There may be a small amount of bone bridging at the fracture site, this cannot be confirmed on these radiographs. No destructive lesion. IMPRESSION: Chronic proximal fibular fracture with callus formation. However, there is at most minimal bony bridging at the fracture site. Consider CT for further characterization if clinically indicated. Electronically signed: Eliezer Randolph. Transcribed by: [id number], User Resident: Electronically Signed by: ELIEZER RANDOLPH @ 02/04/2020 10:34 AM Normal [facility] TRANSFERRINon 02-04-2020 Transferrin [Mass/Vol] 270 mg/dL Normal 203-362 [facility] Comment on above: Performed By: #### 3 0728, 93505, 17126, 12449, 38623 #### [facility] [address] [place] [address], [facility] VITAMIN D 25-HYDROXYon 02-03 VITAMIN D 25-OH 38.5 ng/mL Normal 30.0-80.0 [facility] Comment on above: Result Comment: >80. 0 Toxicity possible Performed By: #### 3 0728, 12152, 39738, 48220, 72684 #### [facility] [address] [place] [address], [place] Gregor 07-06-2018 L - -------- Specimen: [id number] Received: 07/06/18 Status: JONI Lazaro Num: [id number] Spec Type: Surgical Subm Dr: Tash Resendez MD Tissues: A Finger - Amputation, Non-traumatic (LT SMALL FINGER) Procedures: HE Stain/2, Gross/Micro Nitesh Donaldson -------- Patient Age/Sex Location Account Attending Physician -------- Radha Zaidi 58/F [place] [id number] Tash Resendez MD -------- SPEC NUM: [id number] RECD: 07/06/18 STATUS: JONI LAZARO NUM: [id number] RUSS: 07/06/18- SUBM DR: Tash Resendez MD ENTERED: 07/06/[address] [facility] [address]: SPEC TYPE: Surgical DEPT: S ORDERED: HE Stain/2, Gross/Micro L4, Decal ORDERED: HE Stain/2, Gross/Micro L4, Decal Pathological Diagnosis Left small finger, excision: Skin and soft tissue showing mild chronic inflammation and focal calcification. Benign bone with reactive changes. Implant (see gross description). Specimen Clinical Information Implant failure; left small finger Gross Received in formalin, labeled with the patient's name, number, and left 5th finger is a 5.5 cm in length x 2.5 cm in maximum diameter unremarkable appearing digit surfaced by sifuentes, wrinkled and viable appearing skin. The skin and soft tissue at the resection margin is viable. Extending from the resection margin is a 1.8 cm in length x 1 cm in maximal diameter translucent, synthetic object pointed at one end. Sectioning of the digit demonstrates viable appearing soft tissue. No masses or lesions are identified. Also received within the specimen container is a 2.5 cm in length x 0.7 to 1.4 cm in diameter cored out probable portion of bone with scant adherent soft tissue. This bone fragment is viable appearing. Sectioning of the bone reveals yellow, viable appearing bony cut surfaces. [employer] Inserter sections are submitted in two cassettes, decal. (ENRIKE/NAA/lina) -------- Specimen: [id number] Received: 07/06/18 Status: JONI Req Num: [id number] Spec Type: Surgical Subm Dr: Tash Resendez MD Tissues: A Finger - Amputation, Non-traumatic (LT SMALL FINGER) Procedures: HE Stain/2, Gross/Micro L4, Decal -------- Patient: Radha Zaidi [id number] (Continued) -------- Specimen: [id number] Received: 07/06/18 (Continued) Signed (signature on file) Harsh Jo MD 08/14/18 1503 -------- Specimen: [id number] Received: 07/06/18 Status: JONI Lazaro Num: [id number] Spec Type: Surgical Subm Dr: Tash Resendez MD Tissues: A Finger - Amputation, Non-traumatic (LT SMALL FINGER) Procedures: VIRAL Stain/2, Gross/Micro L4, Decal -------- Patient: Radha Zaidi [id number] (Continued) -------- Specimen: [id number] Received: 07/06/18 (Continued) Microscopic Two glass slides with H E stained material have been examined. The microscopic findings support the above pathologic diagnosis. 48[address], [address] A. - - LT SMALL FINGER -------- -------- Specimen: [id number] Received: 07/06/18 Status: JONI Lazaro Num: [id number] Spec Type: Surgical Subm Dr: Tash Resendez MD Tissues: A Finger - Amputation, Non-traumatic (LT SMALL FINGER) Procedures: HE Stain/2, Gross/Micro L4, Decal -------- Patient: Radha Zaidi [id number] (Continued) -------- Signed (signature on file) Harsh Jo MD 08/14/18 1503 Normal [facility] FLUORO FOR SURGICAL PROCEDUR ESon 10-20-2017 FLUORO FOR SURGICAL PROCEDURES Exam: FLUORO FOR SURGICAL PROCEDURESHistory: ACDF Fusion Findings: Fluoroscopy time was 70 seconds A total of 19 fluoroscopic images were obtained by Dr. Cheng during the anterior cervical discectomy in the lower cervical spine.IMPRESSION: Impression: Fluoroscopic assistance provided for operative guidance.Interpreted by:DIANA Lealigned by:Eugene Cancino MD10/20/17inal result Normal [facility] Basic Metabolic Panelon - Anion gap 15 mmol/L Critically high 7-13 [facility] Calcium 9.6 mg/dL Normal 8.6-10.2 [facility] Chloride 102 mmol/L Normal 98-107 [facility] CO2 23 mmol/L Normal 22-29 [facility] Creatinine 0.54 mg/dL Normal 0.50-0.90 [facility] eGFR (black) mL/min/{1.73_m2} Normal >60 [facility] Comment on above: Result Comment: >60 mL/min/1.73m2 EGFR, calc. for ages 18 and older using theMDRD formula (not corrected for weight), is valid for stablerenal function. eGFR (MDRD) mL/min/{1.73_m2} Normal >60 [facility] Comment on above: Result Comment: >60 mL/min/1.73m2 EGFR, calc. for ages 18 and older using theMDRD formula (not corrected for weight), is valid for stablerenal function. Glucose mass conc 97 mg/dL Normal 74-109 [facility] Potassium molar conc 4.8 mmol/L Normal 3.5-5.1 [facility] Sodium 140 mmol/L Normal 132-144 [facility] Urea nitrogen 14 mg/dL Normal 6-20 [facility] CBC With Platelet No Differe ntialon 10-13-2017 Erythrocyte distribution width Auto Ratio (RBC) 13.3 % Normal 11.5-14.5 [facility] Erythrocytes (RBC) 4.96 10*6/uL Normal 4.20-5.40 [facility] Hematocrit (HCT) 47.1 % Critically high 37.0-47.0 [facility] Hemoglobin mass conc (Bld) 16.2 g/dL Critically high 12.0-16.0 [facility] MCH 32.7 pg Critically high 27.0-31.3 [facility] MCHC mass conc (RBC) 34.4 % Normal 33.0-37.0 [facility] MCV 95.0 fL Normal 82.0-100.0 [facility] Platelets 223 10*3/uL Normal 130-400 [facility] WBC (Leukocytes) 6.2 10*3/uL Normal 4.8-10.8 [facility] Culture, MRSA Screenon 10-13 Culture, MRSA Screen ORDERED BY: VITO STALLWORTH: Nares Nose COLLECTED: 10/13/17 13:18ANTIBIOTICS AT [facility].: RECEIVED : 10/13/17 13:18Culture, MRSA Screen FINAL 10/14/17 13:59 No MRSA isolated Normal [facility] Partial Thromboplastin Timeo n 10-13-2017 aPTT 22.9 s Normal 21.6-35.4 [facility] Comment on above: Result Comment: Hepa rin Therapeutic Range: 38.8 - 54.6 seconds. Prothrombin Timeon 8 INR Coag RelTime (PPP) 1.0 {INR} Normal [facility] Comment on above: Result Comment: Kashif mmended INR therapeutic ranges for oral anticoagulanttherapyProphylaxis/treatment of: INR Venous Thrombosis, Pulmonary Embolism 2.0-3Prevention of Systemic Embolism from: Atrial Fibrillation 2.0-3.0 Myocardial Infarction 2.0-3.0 Mechanical Prosthetics Heart Valves 2.5-3.5 Recurrent Systemic Embolism 2.5-3.5Guidelines for patients with coagulopathy, e.g. liver disease:Use the Protime resulted in seconds. Mild 12.9-17.0 sec Moderate 17.1-22.6 sec Severe G.T. 22.6 sec Prothrombin time (PT) Coag time (PPP) 10.0 s Normal 8.1-13.7 [facility] Type and Screen Capture 3 sc rn cellon 10-13-2017 Bilirubin (total) PATIENT: DYAN MUNOZ [id number] : 1960 SEX: FORDERED BY: BASIM CHENG ORDERED : 10/13/2017 12:41 COLLECTED: 10/13/2017 13:24ORDER : [id number] RECEIVED : 10/13/2017 13:24 T EST NAME RESULT UNITS RANGES ABN [place] [facility] Capture A POS FAntibody 3 Cell Scrn Captu NEG F Normal [facility] Urinalysis, reflex to cultur gabbie 10-13-2017 Bilirubin Ql (U) Negative Normal Negative [facility] Urine Reflexed to Culture Not Indicated Normal [facility] Urine, clarity Clear Normal Clear [facility] Urine, color Yellow Normal Straw/Gilliam [facility] Urine, glucose presence Negative Normal Negative [facility] Urine, hemoglobin presence Negative Normal Negative [facility] Urine, ketones presence Negative Normal Negative [facility] Urine, leukocyte esterase presence Negative Normal Negative [facility] Urine, nitrite presence Negative Normal Negative [facility] Urine, pH 5.5 [pH] Normal 5.0-9.0 [facility] Urine, protein presence Negative Normal Negative [facility] Urine, specific gravity 1.018 Normal 1.005-1.03 [facility] Urine, urobilinogen 0.2 {Rajwinder'U}/dL Normal < 2.0 [facility] Vital Signs Date Time Vital Sign Value Performing Clinician Facility 04-07-2023 14:00-0400 Body temperature 97.52 [degF] [facility] 04-07-2023 14:00-0400 Diastolic blood pressure 63 mm[Hg] [facility] 04-07-2023 14:00-0400 Heart rate 88 /min [facility] 04-07-2023 14:00-0400 Mean blood pressure 76 mm[Hg] [facility] 04-07-2023 14:00-0400 SaO2% (BldA) [Mass fraction] 94 % [facility] 04-07-2023 14:00-0400 Systolic blood pressure 101 mm[Hg] [facility] 04-07-2023 08:47-0400 Diastolic blood pressure 75 mm[Hg] [facility] 04-07-2023 08:47-0400 Systolic blood pressure 125 mm[Hg] Jordan [facility] 04-07-2023 07:45-0400 Blood Pressure Location [facility] 04-07-2023 07:45-0400 Body temperature 97.88 [degF] [facility] 04-07-2023 07:45-0400 Diastolic blood pressure 75 mm[Hg] [facility] 04-07-2023 07:45-0400 Heart rate 72 /min [facility] 04-07-2023 07:45-0400 Hourly Rounding [facility] 04-07-2023 07:45-0400 Mean blood pressure 92 mm[Hg] [facility] 04-07-2023 07:45-0400 Promise to Return Jordan [facility] 04-07-2023 07:45-0400 Respiratory rate 16 /min [facility] 04-07-2023 07:45-0400 SaO2% (BldA) [Mass fraction] 96 % [facility] 04-07-2023 07:45-0400 Systolic blood pressure 125 mm[Hg] [facility] 04-07-2023 06:17-0400 Hourly Rounding Jordan [facility] 04-07-2023 06:17-0400 Promise to Return Jordan [facility] 04-07-2023 05:05-0400 Hourly Rounding Jordan [facility] 04-07-2023 05:05-0400 Promise to Return Jordan [facility] 04-06-2023 22:20-0400 Blood Pressure Location Jordan [facility] 04-06-2023 22:20-0400 Body temperature 98.24 [degF] [facility] 04-06-2023 22:20-0400 Heart rate 74 /min [facility] 04-06-2023 22:20-0400 Mean blood pressure 78 mm[Hg] [facility] 04-06-2023 22:20-0400 Respiratory rate 16 /min [facility] 04-06-2023 22:20-0400 SaO2% (BldA) [Mass fraction] 93 % Jordan [facility] 04-06-2023 20:10-0400 Heart rate 65 /min Jordan [facility] 04-06-2023 20:01-0400 Body temperature 97.34 [degF] Jordan [facility] 04-06-2023 20:00-0400 Mean blood pressure 86 mm[Hg] Jordan [facility] 04-06-2023 16:17-0400 Mean blood pressure 97 mm[Hg] Jordan [facility] 04-06-2023 16:16-0400 Body temperature 97.52 [degF] Jordan [facility] 04-06-2023 13:49-0400 Mean blood pressure 88 mm[Hg] Jordan [facility] 04-06-2023 12:45-0400 Respiratory rate 13 /min Jordan [facility] 04-06-2023 12:35-0400 Respiratory rate 10 /min Jordan [facility] 04-06-2023 12:20-0400 Respiratory rate 17 /min Jordan [facility] 04-06-2023 11:37-0400 Body temperature 96.98 [degF] [facility] [employer] [facility] 04-06-2023 06:39-0400 Heart rate 68 /min Jordan Brown [facility] 03-24-2023 14:52-0400 Diastolic blood pressure 76 mm[Hg] Jordan Brown [facility] 03-24-2023 14:52-0400 Heart rate 67 /min [facility] [employer] [facility] 03-24-2023 14:52-0400 Mean blood pressure 99 mm[Hg] [facility] [employer] [facility] 03-24-2023 14:52-0400 Systolic blood pressure 144 mm[Hg] [facility] [employer] [facility] 03-24-2023 14:52-0400 Heart rate 68 /min [facility] [employer] [facility] 03-24-2023 14:52-0400 SaO2% (BldA) [Mass fraction] 99 % [facility] 03-24-2023 14:52-0400 Diastolic blood pressure 75 mm[Hg] Jordan [facility] 03-24-2023 14:52-0400 Mean blood pressure 93 mm[Hg] [facility] [employer] [facility] 03-24-2023 14:52-0400 Systolic blood pressure 128 mm[Hg] Jordan Brown [facility] 03-24-2023 14:51-0400 Respiratory rate 16 /min [facility] [employer] [facility] 01-10-2023 15:00-0400 Body height 166.37 cm John Ball Other [employer] Other 01-10-2023 15:00-0400 Body mass index (BMI) [Ratio] 27.04 kg/m2 John Ball Other [facility] Other 01-10-2023 15:00-0400 Body weight 74.84 kg John Ball Other [facility] Other 01-10-2023 15:00-0400 Diastolic blood pressure 86 mm[Hg] John Ball Other [facility] Other 01-10-2023 15:00-0400 Respiratory rate 12 /min John Ball Other [facility] Other 01-10-2023 15:00-0400 Systolic blood pressure 124 mm[Hg] John Ball Other [facility] Other 12-09-2022 09:00-0400 Body height 166.37 cm John Ball Other [facility] Other 12-09-2022 09:00-0400 Body mass index (BMI) [Ratio] 27.33 kg/m2 John Ball Other [facility] Other 12-09-2022 09:00-0400 Body weight 75.66 kg John Ball Other [facility] Other 12-09-2022 09:00-0400 Diastolic blood pressure 71 mm[Hg] John Ball Other [facility] Other 12-09-2022 09:00-0400 Respiratory rate 12 /min John Ball Other [facility] Other 12-09-2022 09:00-0400 Systolic blood pressure 111 mm[Hg] John Ball Other [facility] Other 11-09-2022 15:00-0400 Body height 166.37 cm John Ball Other [facility] Other 11-09-2022 15:00-0400 Body mass index (BMI) [Ratio] 27.36 kg/m2 John Ball Other [facility] Other 11-09-2022 15:00-0400 Body weight 75.75 kg John Ball Other [facility] Other 11-09-2022 15:00-0400 Diastolic blood pressure 80 mm[Hg] John Ball Other [facility] Other 11-09-2022 15:00-0400 Respiratory rate 12 /min John Ball Other [facility] Other 11-09-2022 15:00-0400 Systolic blood pressure 135 mm[Hg] John Ball Other [facility] Other 07-26-2022 16:30-0500 Body height 166.37 cm John Ball Other [facility] Other 07-26-2022 16:30-0500 Body mass index (BMI) [Ratio] 26.28 kg/m2 John Ball Other [facility] Other 07-26-2022 16:30-0500 Body weight 72.76 kg John Ball Other [facility] Other 07-26-2022 16:30-0500 Diastolic blood pressure 78 mm[Hg] John Ball Other [facility] Other 07-26-2022 16:30-0500 Respiratory rate 12 /min John Ball Other [facility] Other 07-26-2022 16:30-0500 Systolic blood pressure 122 mm[Hg] John Ashby Other [facility] Other Encounters Encounter Date Encounter Type Care Provider Facility Start: 07-21-2023 End: 07-21-2023 ambulatory JORDAN YUAN Not Available Start: 07-05-2023 End: 07-05-2023 ambulatory JORDAN YUAN Not Available Start: 06-28-2023 End: 06-28-2023 ambulatory John Ashby Other [facility] Other Start: 06-28-2023 Office outpatient vi sit 15 minutes John Ashby [facility] Start: 05-24-2023 End: 05-24-2023 ambulatory JORDAN YUAN Not Available Start: 05-06-2023 End: 05-06-2023 ambulatory John Ashby Other [facility] Other Start: 05-06-2023 Telephone encounter John Ashby [facility] Start: 04-26-2023 End: 04-26-2023 ambulatory John Ashby Other [facility] Other Start: 04-26-2023 Telephone encounter John Ashby [facility] Start: 04-06-2023 End: 04-07-2023 ambulatory Jordan Yuan [facility] Start: 04-06-2023 End: 04-07-2023 Admission to same day surgery center Jordan Yuan [facility] Start: 03-31-2023 End: 03-31-2023 ambulatory John Ashby Other [facility] Other Start: 03-31-2023 Telephone encounter John Ashby [facility] Start: 03-26-2023 End: 03-26-2023 ambulatory John Ashby Other [facility] Other Start: 03-26-2023 Telephone encounter John SIMON [facility] Start: 03-24-2023 End: 03-25-2023 ambulatory Jordan Yuan Facility[facility] Start: 03-24-2023 End: 03-24-2023 Patient encounter procedure Jordan Yuan [facility] Start: 03-21-2023 End: 03-21-2023 ambulatory John Ashby Other [facility] Other Start: 03-21-2023 Telephone encounter John SIMON [facility] Start: 01-12-2023 End: 01-12-2023 ambulatory John Ashby Other [facility] Other Start: 01-12-2023 Telephone encounter John SIMON [facility] Start: 01-10-2023 End: 01-10-2023 ambulatory John Symone Other [facility] Other Start: 01-10-2023 Office outpatient vi sit 15 minutes John Ball [facility] Start: 12-14-2022 End: 12-14-2022 ambulatory John Ball Other [facility] Other Start: 12-14-2022 Telephone encounter John SIMON [facility] Start: 12-10-2022 End: 12-10-2022 ambulatory John Ball Other [facility] Other Start: 12-10-2022 Telephone encounter John Ashby [facility] Start: 12-09-2022 End: 12-09-2022 ambulatory John Ball Other [facility] Other Start: 12-09-2022 Office outpatient vi sit 15 minutes John Ball [facility] Start: 11-09-2022 End: 11-09-2022 ambulatory John Ball Other [facility] Other Start: 11-09-2022 Office outpatient vi sit 15 minutes John Ashby [facility] Start: 10-13-2022 ambulatory NARENDRANATH LAKSHMIPATHY . Facility:[facility] Start: 10-07-2022 End: 10-08-2022 ambulatory NARENDRANATH LAKSHMIPATHY . Facility:[facility] Start: 09-22-2022 End: 09-22-2022 ambulatory John Ashby Other [facility] Other Start: 09-22-2022 Telephone encounter John Ashby [facility] Start: 09-16-2022 End: 09-17-[address] JOHN ASHBY Facility:[facility] Start: 08-14-2022 End: 08-14-2022 ambulatory John Ashby Other [facility] Other Start: 08-14-2022 Telephone encounter John Ashby [facility] Start: 07-26-2022 End: 07-26-2022 ambulatory John Ashby Other [facility] Other Start: 07-26-2022 Office outpatient vi sit 15 minutes John Ashby [facility] Start: 07-22-2022 Annual wellness visit John Ashby Other [facility] Other Start: 07-22-2022 Patient encounter procedure John Ashby Other [facility] Other Start: 07-09-2022 End: 07-10-[address] JOHN ASHBY Facility:[facility] Start: 06-21-2022 Adult health examination John Ashby Other [facility] Other Start: 06-21-2022 Gynecological examination normal John Ashby Other [facility] Other Start: 2022 End: 06-09-[address] JOHN ASHBY Facility:[facility] Start: 06-01-2022 End: 06-01-[address] JOHN ASHBY Facility:[facility] Start: 05-24-2022 Encounter for genera l adult medical examination without abnormal findings DR JOHN ASHBY [facility] Start: 05-20-2022 End: 05-21-[address] JOHN ASHBY Facility:[facility] Start: 05-20-2022 End: 05-21-2022 Encounter for general adult medical examination without abnormal findings DR JOHN ASHBY Facility:[facility] Start: 05-20-2022 End: 05-21-[address] JOHN ASHBY Facility:[facility] Start: 04-09-2022 ambulatory MICHELE LAW Facility:[facility] Start: 02-17-2022 End: 02-18-2022 ambulatory JACQUIE OLIVAS . Facility:[facility] Start: 02-16-2022 End: 02-17-[address] SO AMOS . Facility:[facility] Start: 02-02-2022 End: 02-03-[address] SO AMOS . Facility:[facility] Start: 12-24-2021 ambulatory MICHELE LAW Facility:[facility] Start: 10-22-2021 End: 10-23-2021 ambulatory JACQUIE OLIVAS . Facility:[facility] Start: 03-12-2020 End: 03-13-2020 Patient encounter procedure MARYURI ALEXANDER Facility:[facility] Start: 03-05-2020 End: 03-20-2020 Patient encounter procedure MARYURI ALEXANDER Facility:[facility] Start: 10-20-2017 End: 10-21-2017 Ambulatory BARRY H. BASIM [facility] [place] Start: 10-13-2017 End: 10-18-2017 Ambulatory BARRY H. BASIM [facility] [place] Procedures Date Procedure Procedure Detail Performing Clinician Start: 04-06-2023 Total shoulder replacement Jordan Yuan Start: 03-12-2020 ANESTH KNEE AREA SURGERY TASH EVANS Start: 03-12-2020 ANTIONE BONE 20 SQ CM/< JG ALEXANDER Start: 03-12-2020 TREATMENT OF FIBULA FRACTURE MARYURI ALEXANDER Start: 10-21-2017 PULSE OXIMETRY, CONTINUOUS BARRY BASIM Start: 10-21-2017 PULSE OXIMETRY, CONTINUOUS BARRY BASIM Start: 10-21-2017 DISCHARGE PATIENT BARRY YO O Start: 10-21-2017 PATIENT STATUS (DIRECT) BARRY BASIM Start: 10-21-2017 PULSE OXIMETRY, CONTINUOUS BARRY BASIM Start: 10-21-2017 INITIATE OXYGEN THER APY PROTOCOL BARRY BASIM Start: 10-21-2017 PULSE OXIMETRY, CONTINUOUS BARRY BASIM Start: 10-21-2017 DIET CLEAR LIQUID BARRY YO O Start: 10-21-2017 PULSE OXIMETRY, CONTINUOUS BARRY BASIM Start: 10-21-2017 DAILY WEIGHTS BARRY BASIM Start: 10-21-2017 INTAKE AND OUTPUT BARRY YO O Start: 10-21-2017 PULSE OXIMETRY, CONTINUOUS BARRY BASIM Start: 10-20-2017 PULSE OXIMETRY, CONTINUOUS BARRY BASIM Start: 10-20-2017 PULSE OXIMETRY, CONTINUOUS BARRY BASIM Start: 10-20-2017 PLACE INTERMITTENT PNEUMATIC COMPRESSION DEVICE BARRY BASIM Start: 10-20-2017 ACTIVITY TOLERATED B O BASIM Start: 10-20-2017 ADVANCE DIET TOLE RATED (NURSING COMMUNICATION) BARRY BASIM Start: 10-20-2017 AMBULATE PATIENT BARRY BASIM Start: 10-20-2017 ELEVATE HOB BARRY BASIM Start: 10-20-2017 FULL CODE BARRY BASIM Start: 10-20-2017 INITIATE OXYGEN THER APY PROTOCOL BARRY BASIM Start: 10-20-2017 INTAKE AND OUTPUT BARRY YO O Start: 10-20-2017 NEURO/VASCULAR CHECKS B O BASIM Start: 10-20-2017 NURSING COMMUNICATION B O BASIM Start: 10-20-2017 PLACE CERVICAL COLLAR B O BASIM Start: 10-20-2017 PULSE OXIMETRY, CONTINUOUS BARRY BASIM Start: 10-20-2017 TELEMETRY MONITORING BARRY BASIM Start: 10-20-2017 TOBACCO CESSATION EDUCATION BARRY BASIM Start: 10-20-2017 VITAL SIGNS BARRY BASIM Start: 10-20-2017 PATIENT STATUS (FROM ED OR OR/PROCEDURAL) BARRY BASIM Start: 10-20-2017 TELEMETRY MONITORING BARRY BASIM Start: 10-20-2017 FLUORO FOR SURGICAL PROCEDURES BARRY BASIM Start: 10-20-2017 Continuous pulse oximetry BARRY BASIM Start: 10-20-2017 ENCOURAGE DEEP BREAT DORA AND COUGHING BARRY BASIM Start: 10-13-2017 CBC BARRY BASIM Start: 10-13-2017 URINE RT REFLEX TO CULTURE BARRY BASIM Start: 10-13-2017 TYPE AND SCREEN BARRY BASIM Start: 10-13-2017 APTT BARRY BASIM Start: 10-13-2017 BASIC METABOLIC PANEL B O BASIM Start: 10-13-2017 PROTIME-INR BARRY BASIM Start: 10-13-2017 MRSA SCREENING CULTURE ONLY BARRY BASIM Start: 10-13-2017 EKG 12-LEAD BARRY BASIM Start: 06-24-2014 General examination of patient John Ashby Other Amputation of finger , except thumb Jordan Yuan Cervical laminectomy Jordan cates Excision of lumbar intervertebral disc Jordan Yuan ft (qualifier value) Jordan cates Open reduction of fr acture with internal fixation Jordan Yuan Removal of lung pneumonectomy Jordan Yuan Screening for malign ant neoplasm of breast John Ashby Other Screening mammography Herbert Ashby Other Immunizations Immunization Date Immunization Notes Care Provider Angélica kwon 03-22-2012 tetanus and diphther ia toxoids, adsorbed, preservative free, for adult use (5 Lf of tetanus toxoid and 2 Lf of diphtheria toxoid) John Ashby Other [facility] Other Payers Date Payer Category Payer Unknown 2021 [facility] [id number] 2017 Unknown [id number] 1960 Unknown [id number] 2.16.8 40.1.675070.3.579.2.647 1960 Unknown [id number] 2.16.8 40.1.425268.3.579.2.647 1960 Unknown [id number] 2.16.84 0.1.096948.3.579.2.593 1960 Unknown [id number] 2.16.84 0.1.352335.3.579.2.593 1960 Unknown [id number] 2.16.84 0.1.043647.3.579.2.593 1960 Unknown [id number] 2.16.84 0.1.085089.3.579.2.593 1960 Unknown [id number] 2.16.84 0.1.266120.3.579.2.593 1960 Unknown [id number] 2.16.84 0.1.717863.3.579.2.593 1960 Unknown [id number] 2.16.84 0.1.207866.3.579.2.593 1960 Unknown [id number] 2.16.84 0.1.469905.3.579.2.593 1960 Unknown [id number] 2.16.84 0.1.839290.3.579.2.593 1960 Unknown [id number] 2.16.84 0.1.005227.3.579.2.593 1960 Unknown [id number] 2.16.84 0.1.944255.3.579.2.593 1960 Unknown [id number] 2.16.84 0.1.142352.3.579.2.593 1960 Unknown [id number] 2.16.84 0.1.940341.3.579.2.593 1960 Unknown [id number] 2.16.84 0.1.132561.3.579.2.593 1960 Unknown [id number] 2.16.84 0.1.087199.3.579.2.593 1960 Unknown [id number] 2.16.84 0.1.725165.3.579.2.593 1960 Unknown [id number] 2.16.84 0.1.340829.3.579.2.593 1960 Unknown [id number] 2.16.8 40.1.424724.3.579.2.727 1960 Unknown [id number] 2.16.8 40.1.993448.3.579.2.727 1960 Unknown [id number] 2.16.84 0.1.261442.3.579.2.9 1960 Unknown [id number] 2.16.84 0.1.667772.3.579.2.9 1960 Unknown [id number] 2.16.840 .1.011337.3.579.2.9 1960 Unknown [id number] 2.16.840 .1.478379.3.579.2.1258 1960 Unknown [id number] 2.16.840. 1.864139.3.579.2.1258 1960 Unknown [id number] 2.16.840. 1.046237.3.579.2.1259 1959 Medicare [id number] 1959 Self-pay 1959 Unknown [id number] 1959 Unknown [id number] Social History Date Type Detail Facility Unknown if ever smoked [facility] Other Sex Assigned At [facility] Tobacco smoking status No Smoking Status Entered [facility] Medical Equipment Procedure Code Equipment Code Equipment Origin al Text Equipment Identifier Dates SHOULDER TOTAL ARTHROPLASTY Jordan Yuan DO 04/06/23 Unknown Shoulder R FDA Start: 04-06-2023 SHOULDER TOTAL ARTHROPLASTY Jordan Yuan DO A 04/06/23 Unknown Shoulder R FDA Start: 04-06-2023 SHOULDER TOTAL ARTHROPLASTY Jordan Yuan DO A 04/06/23 Unknown Shoulder R FDA Start: 04-06-2023 SHOULDER TOTAL ARTHROPLASTY Jordan Yuan DO A 04/06/23 Unknown Shoulder R FDA Start: 04-06-2023 SHOULDER TOTAL ARTHROPLASTY Jordan Yuan DO A 04/06/23 Unknown Shoulder R FDA Start: 04-06-2023 SHOULDER TOTAL ARTHROPLASTY Jordan Yuan DO A 04/06/23 Unknown Shoulder R FDA Start: 04-06-2023 SHOULDER TOTAL ARTHROPLASTY Jordan Yuan DO A 04/06/23 Unknown Shoulder R FDA Start: 04-06-2023 SHOULDER TOTAL ARTHROPLASTY Jordan Yuan DO A 04/06/23 Unknown Shoulder R FDA Start: 04-06-2023 SHOULDER TOTAL ARTHROPLASTY Jordan Yuan DO 04/06/23 Unknown Shoulder R FDA Start: 04-06-2023 Functional Status Date Assessment Result Facility 03-24-2023 Functional Status No [facility] Clinical Notes 10-22-2021 to 06-28-2023 Note Date & Type Note Facility 06-28-2023 Evaluation note Encounter Date Diagnosis Assessment Notes Jun, Acute bronchitis due to other specified organisms (ICD-10 - J20.8) Instructed to use Robitussin or Mucinex for cough, saline or Flonase NS for congestion, Tylenol for pain and fever. Instructed to use Robitussin or Mucinex for cough, saline or Flonase NS for congestion, Tylenol for pain and fever. 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 Jun, Immunosuppressed status (ICD-10 - D84.9) [facility] Other 09-28-2023 Evaluation + Plan noteExtracted from: Title:Discharge Summary Author:Jordan Yuan DO Date:04/07/23 Discharge Information Discharge Summary Information: Admit Date/Time: 04/06/23 06:09Discharge Date/Time: 04/07/23 07:41 Admitting Physician: Jordan Yuan DO Referring Physician for Admission: Jordan Yuan DO Consulting Physicians: none Admitting Diagnoses: massive cuff tear right shoulder procedure: R reverse TSA discharge disposition: home Discharge Diagnoses: Complete rotator cuff tear or rupture of right shoulder, not specified as traumatic Prescription and Home Meds: acetaminophen-oxycodone (Percocet 5 mg-325 mg oral tablet) See Instructions, 1-2 tab(s) Oral q4hr, 40 tab(s), 0 Refill(s) buPROPion (Wellbutrin XL 300 mg/24 hours Tab-ER) 300 mg, 1 tab(s), Oral, BID, 0 Refill(s) celecoxib (CeleBREX 100 mg Cap) 100 mg, 1 cap(s), Oral, BID, PRN: for pain, 60 cap(s), 0 Refill(s) cephalexin (Keflex 500 mg Cap) 500 mg, 1 cap(s), Oral, q8hr, for 7 day(s), 21 cap(s), 0 Refill(s) docusate (Colace 100 mg Cap) 100 mg, 1 cap(s), Oral, BID, PRN: for constipation, 20 cap(s), 0 Refill(s) leflunomide (Arava 10 mg oral tablet) 10 mg, 1 tab(s), Oral, Daily, 0 Refill(s) lisinopril (lisinopril 5 mg Tab) 5 mg, 1 tab(s), Oral, Daily, 0 Refill(s) metoprolol (metoprolol 100 mg ER Tab) 100 mg, 1 tab(s), Oral, Bedtime, 0 Refill(s) pregabalin (Lyrica 150 mg Cap) 150 mg, 1 cap(s), Oral, BID, 60 cap(s), 0 Refill(s) tizanidine (Zanaflex 4 mg Tab) See Instructions, 1 tab(s) Oral in AM 3 tabs at bedtime, 0 Refill(s) upadacitinib (Rinvoq 15 mg oral tablet, extended release) 15 mg, 1 tab(s), Oral, Daily, 0 Refill(s) Extracted from: Title:ANES Post General Author:Colin Rai DO Date:04/06/23 Plan Transfer/Discharge: Patient exhibiting no signs of N/V. Hydration status is adequate. Extracted from: Title:[facility] PRE Author:Hill Rai DO Date:04/06/23 Plan [employer] [employer] (ASA) physical status classification: Class II. Anesthetic Preoperative Plan: Anesthesia General. Regional Interscalene block. [facility]09-28-2023 NotePatient: RADHA ZAIDI Age: 62 years Sex: Female : 1960 Associated Diagnoses: None Author: Jordan Yuan DO Discharge Information Discharge Summary Information: Admit Date/Time: 04/06/23 06:09 Discharge Date/Time: 04/07/23 07:41 Admitting Physician: Jordan Yuan DO Referring Physician for Admission: Jordan Yuan DO Consulting Physicians: none Admitting Diagnoses: massive cuff tear right shoulder procedure: R reverse TSA discharge disposition: home Discharge Diagnoses: Complete rotator cuff tear or rupture of right shoulder, not specified as traumatic Prescription and Home Meds: acetaminophen-oxycodone (Percocet 5 mg-325 mg oral tablet) See Instructions, 1-2 tab(s) Oral q4hr, 40 tab(s), 0 Refill(s) buPROPion (Wellbutrin XL 300 mg/24 hours Tab-ER) 300 mg, 1 tab(s), Oral, BID, 0 Refill(s) celecoxib (CeleBREX 100 mg Cap) 100 mg, 1 cap(s), Oral, BID, PRN: for pain, 60 cap(s), 0 Refill(s) cephalexin (Keflex 500 mg Cap) 500 mg, 1 cap(s), Oral, q8hr, for 7 day(s), 21 cap(s), 0 Refill(s) docusate (Colace 100 mg Cap) 100 mg, 1 cap(s), Oral, BID, PRN: for constipation, 20 cap(s), 0 Refill(s) leflunomide (Arava 10 mg oral tablet) 10 mg, 1 tab(s), Oral, Daily, 0 Refill(s) lisinopril (lisinopril 5 mg Tab) 5 mg, 1 tab(s), Oral, Daily, 0 Refill(s) metoprolol (metoprolol 100 mg ER Tab) 100 mg, 1 tab(s), Oral, Bedtime, 0 Refill(s) pregabalin (Lyrica 150 mg Cap) 150 mg, 1 cap(s), Oral, BID, 60 cap(s), 0 Refill(s) tizanidine (Zanaflex 4 mg Tab) See Instructions, 1 tab(s) Oral in AM 3 tabs at bedtime, 0 Refill(s) upadacitinib (Rinvoq 15 mg oral tablet, extended release) 15 mg, 1 tab(s), Oral, Daily, 0 Refill(s)[facility] HospitalComment on above:Result Comment: Electronically Signed By: Jordan Yuan DO\.br\Date and Time Signed: 04/07/23 07:42 [id number] Hospital Discharge instructions Patient Education 04/07/2023 07:41:33 Iris Yuan - Shoulder Replacement (Custom) [place], [place] [facility] DISCHARGE INSTRUCTIONS: SHOULDER REPLACEMENT MEDICATIONS You will be given a prescription for pain medication. This should be taken with food as needed. This may cause stomach upset, dizziness, and possible constipation. Please notify the office if you have any medication allergies to this type of medication or if any problems develop with the medication. DRESSING CHANGES Leave your bandage in place until your follow up visit. The bandage is waterproof, so you may shower it home. Any increase in pain, temperature over 101 degrees, redness, or drainage should be reported to the office prior to your first office visit. ACTIVITY You may continue to progress activity as comfortably tolerated with your opposite arm. You may begin to use your elbow, wrist, and hand as directed in physical therapy. You should only remove your sling for bathing and to perform range of motion exercises for the hand, wrist, and elbow. Do not actively move your shoulder Continue to ice the shoulder several times per day until follow up. ANESTHESIA PRECAUTIONS You should not operate a vehicle, automobile, bicycle or motorcycle, machinery, or power tools, make any important decisions, or drink alcohol for 24 hours. It may be beneficial to have a responsible adult remain with you for your first 24 hours after surgery. You may be drowsy and light-headed. DRIVING Driving is legal, however, if you are involved in an accident, you must be able to prove that you maintained full control of your vehicle. For this reason, it is advised that you do not drive until your strength returns. PROBLEMS You should notify the office for any persistent or heavy bleeding, temperature above 101, redness, swelling, or drainage from the operative site, severe pain at the operative site, or the developmentof persistent vomiting. Jordan Yuan, [facility] [address] [place] [id number] Reviewed: Follow Up Care 03/09/2023 13:56:15 With:Jordan Yuan Address: [address] [place] [address]- Business (1) When:04/19/2023 14:15:00 With:JOHN ASHBY Address: [address] [address]- Business (1) When: Unknown [facility]09-26-2023 Note [id number]:[id number]-26-[facility] Evaluation note* Encounter Date Diagnosis Assessment Notes Treatment Notes Treatment Clinical Notes Mar, Major depressive disorder, single episode, 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 They are instructed to reduce calories, portion sizes and snacks. It is recommended that they exercise for 30 minutes, 3-5 times weekly. Jan, Primary hypertension (ICD-10 - I10) This patient is instructed to consume a healthy, low-fat, low-salt diet. They are also encouraged to continue exercise to achieve/maintain a normal BMI. Jan, Decreased libido (ICD-10 - R68.82) Last OV increased Wellbutrin and decreased SSRI w/o benefit D/c SSRI and monitor for change in mood She is aware that nervousness and lightheadedness are common w/d symptoms [facility] Other 06-02-2023 Evaluation note* Encounter Date Diagnosis Assessment Notes Treatment Notes Treatment Clinical Notes Dec, Overweight (ICD-10 - E66.3) [facility] Other 06-01-2023 Evaluation note* Encounter Date Diagnosis Assessment Notes Treatment Notes Treatment Clinical Notes Dec, Overweight (ICD-10 - E66.3) This patient has been instructed on a low-fat, high-fiber diet. They are instructed to reduce calories, portion sizes and snacks. It is recommended that they exercise for 30 minutes, 3-5 times weekly. Fill second Rx for Adipex Dec, Primary hypertension (ICD-10 - I10) This patient is instructed to consume a healthy, low-fat, low-salt diet. They are also encouraged to continue exercise to achieve/maintain a normal BMI. Dec, Decreased libido (ICD-10 - R68.82) Age and medication contributing. New treatments available, will research treatment choices and let her know but likely will be very costly. Suggested referral to [facility] Other 05-02-2023 Evaluation note* Encounter Date Diagnosis Assessment Notes Treatment Notes Treatment Clinical Notes November, Overweight (ICD-10 - E66.3) This patient has been instructed on a low-fat, high-fiber diet. They are instructed to reduce calories, portion sizes and snacks. It is recommended that they exercise for 30 minutes, 3-5 times weekly. November, Essential hypertension (ICD-10 - I10) This patient is instructed to consume a healthy, low-fat, low-salt diet. They are also encouraged to continue exercise to achieve/maintain a normal BMI. Monitor BP while taking Adipex [facility] Other 03-30-2023 NoteCONSULTATION PROCEDURE DATE: 10/07/2022 PROCEDURE: Right bicipital tendon sheath injection in the office. PREOPERATIVE DIAGNOSIS: Pain secondary to sheath tendonitis right biceps tendon. POSTOPERATIVE DIAGNOSIS: Pain secondary to sheath tendonitis right biceps tendon. SOLUTION USED FOR INJECTION: 2 mL of 2% lidocaine, 2 mL of 0.25% Marcaine, 10 mg of Kenalog, total of 5 mL, and 2 mL used for the injection at the site. IMMEDIATE COMPLICATIONS: None. PROCEDURE: After informed consent was obtained from the patient, placed in the semi-recumbent position. Skin overlying the area was prepped with alcohol. A 25 gauge 1.5 inch needle was inserted over the area of the right bicipital tendon. Needle tip was advanced until there was a mild twitch response. We injected 1-2 mL of solution around the bicipital tendon. No indication of intravascular or intraneural needle tip placement or injection was noted. Post procedure, she reports at least 80% reduction of pain symptoms.The [facility] [id number] NoteCONSULTATION CONSULTATION DATE: 10/07/2022 ADDENDUM: On examination of the right shoulder, the patient did have a positive right sided full can test, a positive Neida's test, Apley's test and cross body test. All four positive on examination date 10/07/2022.[facility] [id number] NoteCONSULTATION CONSULTATION DATE: 10/07/2022 TO: John Ashby D.O. CHIEF COMPLAINT: Includes right shoulder pain. HISTORY: She rates the pain as being 5-7/10, sharp in character. It was increased with activities such as lifting maneuvers, pushing/pulling maneuvers. She feels most comfortable in the semi-recumbent position. Denies any change in bowel and bladder habits or new sensorimotor changes in her upper extremities. EXAM: Her examination is notable for the patient having no clinical radiculopathy or myelopathy involving her upper extremities on today's visit. She has pain with right shoulder flexion combined with internal rotation. She has pain with right shoulder extension with internal rotation in adduction, and she had pain with right shoulder abduction. She had significant tenderness along the long head of the bicipital tendon, as well as the anterior portion of the right deltoid and point tenderness overlying the right supraspinatus muscle. IMPRESSION: Our impression is patient with chronic pain, failed conservative therapy which includes activity modification, use of Zanaflex, Lyrica and [place]. RECOMMENDATIONS: I recommend proceeding with a right bicipital tendon sheath injection in the office for her right bicipital tendonitis. She also appears to have tenderness of the anterior deltoid and rotator cuff strain on the right side. I have recommended, in addition to the right bicipital tendon injection, to proceed with an x-ray of her right shoulder, MRI of her right shoulder without contrast and physical therapy.[facility] [id number] Evaluation note* Encounter Date Diagnosis Assessment Notes Treatment Notes Treatment Clinical Notes Aug, Anemia (ICD-10 - D64.9) [facility] Other 01-16-2023 Evaluation note* Encounter Date Diagnosis Assessment Notes Treatment Notes Treatment Clinical Notes Jul, Rheumatoid arthritis involving left hand with positive rheumatoid factor (ICD-10 - M05.742) RA appears to be in remision, f/u Rheumatology Jul, Paroxysmal tachycardia, unspecified (ICD-10 - I47.9) No s/s tachycardia. Avoid stimulants and maintain normal hydration. Jul, Overweight (ICD-10 - E66.3) This patient has been instructed on a low-fat, high-fiber diet. They are instructed to reduce calories, portion sizes and snacks. It is recommended that they exercise for 30 minutes, 3-5 times weekly. Fill Adipex w/ expectation that she will achieve IBW. Jul, ERICH (generalized anxiety disorder) (ICD-10 - F41.1) Healthy diet, exercise w/o change in treatment [facility] Other [id number] NoteCONSULTATION PROCEDURE DATE: 07/09/2022 PREOPERATIVE DIAGNOSIS: Right bicipital head tendonitis. POSTOPERATIVE DIAGNOSIS: Right bicipital head tendonitis. PROCEDURE: Right bicipital head tendon sheath injection. Subsequent to obtaining informed consent, the patient was placed in the upright sitting position. Alcohol prep was used to sterilize the site. A 25 gauge needle with 0.125% Marcaine and 40 mg of Kenalog was placed to rest inside the tendon sheath. Negative heme. Medication was injected in a slow fashion. Patient tolerated the procedure well, will be followed up in the office.[facility] [id number] NoteCONSULTATION CONSULTATION DATE: 07/09/2022 HISTORY OF PRESENT ILLNESS: This is a 62-year-old female who returns to the clinic status post cervical epidural steroid injection completed on 06/01/2022. The patient states she had significant relief to her left arm only. She has significant radiculopathy to her left arm to the level of her hands and fingers. She is currently on Lyrica 50 mg t.i.d., which she finds helpful, but is inquiring about a possible increase in dose. She also takes [place] 5/325 t.i.d. and Zanaflex 4 mg three tabs at h.s. She did have radiofrequency ablations of her cervical facets in September of 2020. Her primary area of pain today, upon presentation, is her right arm and her right shoulder. Her pain is 7/10, described as sharp and burning. She did have a shoulder surgery on that over a year ago. In the past, he has received a right bicipital head tendon sheath injection which was beneficial to her, and she is inquiring about that today as well. ADLs, physical activity and pushing and pulling aggravate her right shoulder pain. Patient's REVIEW OF SYSTEMS / PAST MEDICAL HISTORY / ALLERGIES and IMAGES have been reviewed and noted in the chart. PHYSICAL EXAM: VITAL SIGNS: Blood pressure 123/78, heart rate is 82. She is 76 kg. GENERAL IMPRESSION: Pleasant, appropriate, in no acute distress. FOCUSED EXAM - NECK: Range of motion is functional in lateral rotation and flexion/extension. No reproduction of spinal axial pain upon deep compression of her cervical facets. Cervical trapezius and splenius capitis muscles are non-spasmodic. MUSCULOSKELETAL: Slight vasomotor weakness to her right upper extremity, 4/5. Motor to the right is 4/5, to the left is 5/5. Patient has limited lateral raise in adduction and abduction. Compression along the right bicipital head tendon sheath reproduces patient's pain symptomatology, produces a jump response. NEUROLOGICAL: Right arm stocking distribution hypoesthesia noted along C7 and C8. DIAGNOSIS: Right shoulder pain, cervical radiculitis. PLAN: We will increase her Lyrica to 150 mg b.i.d., and she will receive a right bicipital head tendon sheath injection in the office, which she does consent to. We will see her in three months' time, unless otherwise indicated. [facility] [id number] NoteCONSULTATION CONSULTATION DATE: 05/20/2022 HISTORY OF PRESENT ILLNESS: This is a 61-year-old female returning to the clinic for a three month follow up and status post right bicipital tendon sheath injection. That injection was performed at her last office visit. She reports very minimal relief. Today, she is complaining of pain 7/10 to bilateral upper arms to the anterior portion. She describes it as stabbing, burning, pressure and ache. 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 Patient did have a cervical fusion in the past from C3-C7. Current medications include Celexa, Lyrica 50 mg b.i.d., [place] 5/325 t.i.d. and Zanaflex. Patient is having trouble picking up her young grandson and feels upper extremity weakness. She has discussed this with her primary care physician, Dr. Ashby. She has not lost any functionality. Activities that aggravate her arms are pushing, pulling, lifting, raising her arms and reaching. She denies any particular neck pain though. She does not use heat or ice. Patient's REVIEW OF SYSTEMS / PAST MEDICAL HISTORY / ALLERGIES and IMAGES have been reviewed and they are noted on the chart. PHYSICAL EXAM: VITAL SIGNS: Blood pressure is 129/76. Heart rate is 76. Temperature is 97.3. She is 55 tall and weighs 78 kg. GENERAL IMPRESSION: Pleasant, appropriate, no acute distress. FOCUSED EXAM - NECK: Range of motion is functional in lateral rotation and flexion/extension. Cervical trapezius and splenius capitis muscles are non-spasmodic. Point tenderness mild along the lower cervical facets of C4, C5 and C6, C7. Pain does radiate below the elbow. MUSCULOSKELETAL: Motor is intact, 4/5 bilaterally. Bicipital weakness noted bilaterally. NEUROLOGICAL: Diffuse hypoesthesia to bilateral upper extremities including all digits. Brachioradialis is blunted. DIAGNOSIS: Cervical radiculitis, cervical degenerative disc disease and right shoulder pain. PLAN: We will move forward for a cervical epidural steroid injection at the level of C3-4. We will refill her [place] at 5/325 t.i.d. Supportive home measures were discussed such as heat and a menthol heat rub, as well as vitamin compliance. The patient agrees to move forward with the plan, will be followed up in the clinic thereafter.[facility] [id number] NoteCONSULTATION PROCEDURE DATE: 02/17/2022 PRE AND POSTOPERATIVE DIAGNOSIS: Right shoulder biceps tendinitis. PROCEDURE: Right anterior bicipital tendon injection. Subsequent to obtaining informed consent, the patient was placed in the upright sitting position. Alcohol prep was used to sterilize the site of the anterior bicep tendon region. 25-gauge needle with 0.125% Marcaine and 40 mg of Kenalog was placed with the anterior approach along and thru the bicep tendon. Negative heme. Medication was injected slowly and patient tolerated the procedure well. The patient is able to have full range of motion following the procedure. She will be followed up in the clinic.[facility] [id number] NotePROCEDURE: XR SHOULDER RT 2V or > COMPARISON: None. HISTORY: Pain of right shoulder joint FINDINGS: BONES:No acute fracture or dislocation. Minimal degenerative changes. Cervical fusion hardware SOFT TISSUES:Negative. No visible soft tissue swelling. EFFUSION:None visible. OTHER: Negative. IMPRESSION: No acute abnormality Electronically authenticated by: VANDANA COLLINS Date: 2022-02-16 19:11[facility]07-26-2022 NoteCONSULTATION CONSULTATION DATE: 02/02/2022 CHIEF COMPLAINT: Right shoulder pain. HISTORY OF PRESENT ILLNESS: This is a very pleasant, 61-year-old female who is known to the Pain Clinic. The patient has had chronic cervical and cervicothoracic pain. Currently, the patient reports her right shoulder. Daily activities such as vacuuming, ADLs, activities, lifting, twisting her neck, change in weather aggravates the pain. The patient currently takes [place] 5/325 t.i.d., wellbutrin 150 mg, Lyrica 50 mg b.i.d., Celexa 20 mg, (sounds like Rinvigor but unable to verify) 15 mg daily, and Zanaflex q.p.m. The patient's PAST MEDICAL HISTORY / SURGICAL HISTORY / REVIEW OF SYSTEMS are noted on the chart, along with the MEDICATION LIST / ALLERGIES. No recent RADIOLOGICAL IMAGES of the right shoulder. PHYSICAL EXAM: GENERAL: Upon physical examination, this is a pleasant, cooperative female who does not appear to be in any acute distress. VITAL SIGNS: Stable at 130/76 with a heart rate of 44. At a height of 5'5 , the patient weighs 76 kg. FOCUSED EVALUATION OF THE RIGHT SHOULDER: No crepitus is noted. The patient has weakness along the supraspinatus, initial abduction component. The deltoids are deconditioning. Remote deltoid tear and retraction is noted on the right hand side. The patient has tenderness. No crepitus. Range of motion in abduction, extension and flexion are within normal limits. The patient has point tenderness along the right bicipital tendon. 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 IMPRESSION: Current working diagnosis is right shoulder pain, right bicipital tendonitis. PLAN: The patient will start applying a heat rub to her right shoulder. We will also get an x-ray of the right shoulder to ensure no overt pathology. We shall look to get authorization of the right bicipital tendon sheath. The patient understands and would like to proceed. CC: John Ashby D.O.[facility] [id number] NoteCONSULTATION CONSULTATION DATE: 10/22/2021 HISTORY OF PRESENT ILLNESS: This is a 61-year-old female who presents to the clinic for a three month follow up for her chronic back and neck pain. Her last procedure was cervical bilateral RFAs in September 2020. Today, she presents with 5/10 pain, which is concentrated to her left neck. She is complaining of radicular pain, extending down to the shoulder below her elbow. 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 Cold weather and bending bother her as well. Medications include Lyrica 75 mg t.i.d., which she has not been taking for the past two months; Celexa, [place] 5/325 t.i.d., Zanaflex and RINVOQ. She feels that her pain is managed well with her [place], but is concerned about the neuropathic pain in her left upper extremity at this time. She denies any new vasomotor changes. Patient's REVIEW OF SYSTEMS / PAST MEDICAL HISTORY / ALLERGIES and IMAGES have been reviewed and they are noted on the chart. PHYSICAL EXAM: VITALS: Blood pressure 132/69, heart rate is 69. Temperature is 97.8. She is 5'5 and weighs 77 kg. GENERAL APPEARANCE: No acute distress, pleasant and appropriate. FOCUSED EXAM - NECK: Range of motion is within functional limits in lateral rotation and flexion/extension. Trachea is midline. Muscles are non-spasmodic. MUSCULOSKELETAL: Motor is intact, bilateral upper extremities, 4/5 bilaterally in push/pulling. NEUROLOGICAL: +1 brachioradialis reflex to the left and right bilaterally. Patchy hypoesthesia noted along C7-C8 dermatome to the left. IMPRESSION: Polyneuropathy, cervical neuritis, cervical degenerative disc and chronic pain syndrome. PLAN: She is in need of a refill for her [place] today, which we will give 5/325 t.i.d. The patient was made aware for her prescription refill in November, that she would be decreased to b.i.d. She is to restart the Lyrica at 50 mg b.i.d. Patient does understand this and agrees to it. Nutrition and vitamin importance was discussed as well, as well as compliance to vitamins and medication. We will see the patient in the clinic in three months' time unless otherwise indicated. [facility] Signed and Approved by: JACQUIE OLIVAS . 11/12/2021 16:27:00[facility] + Plan note Future Appointments Appointment Date:04/06/2023 09:30:00 AM Scheduled Provider: Location:[facility]No [facility]No[facility] [place] Other History general Narrative - Reported* Type Description Date Medical History Right shoulder strain, initial e ncounter Medical History Rheumatoid arthritis involving left hand with positive rheumatoid factor Medical History Overweight Medical History Paroxysmal tachycardia, unspecif ied Medical History Essential hypertension Medical History Anemia Medical History Screening mammogram, encounter f or Medical History Abdominal cramping in left lower quadrant Medical History Dehydration Medical History Diarrhea of infectious origin Medical History Dyspepsia Medical History Obesity (BMI 30-39.9) Medical History Encounter for wellness examinati on Medical History Suspected COVID-19 virus infecti on Medical History Contusion of left lo wer extremity, initial encounter Medical History Fatigue Medical History Recurrent cold sores Medical History Therapeutic drug monitoring Medical History Mycobacterium avium complex Medical History ERICH (generalized anxiety disorde r) Medical History Mild episode of recurrent major depressive disorder Medical History Well woman exam Medical History History of empyema of pleura Medical History Cervical spondylosis Medical History History of pericarditis Medical History Rotator cuff tear, right Surgical History Left Small Finger x 2 Surgical History Left Thumb fused Surgical History Right Index Finger Surgical History Right Shoulder Arthroscopy 06/11 014 Surgical History Right Foot x 2 Surgical History Lumbar Spine x 2 Surgical History Cervical Spine x 2 Surgical History Hysterectomy Surgical History revision of external fixation device in L fibula, open approach Surgical History tonsillectomy and adenoidectomy Surgical History ORIF, proximal fibula Surgical History [facility] 2011 Surgical History Lumbar fusion Surgical History ACDF C4-6 05/30 Hospitalization History See Above [facility] Other [facility] general Narrative - Reported* Type Description Date Medical History Right shoulder strain, initial e ncounter Medical History Rheumatoid arthritis involving left hand with positive rheumatoid factor Medical History Overweight Medical History Paroxysmal tachycardia, unspecif ied Medical History Essential hypertension Medical History Anemia Medical History Screening mammogram, encounter f or Medical History Abdominal cramping in left lower quadrant Medical History Dehydration Medical History Diarrhea of infectious origin Medical History Dyspepsia Medical History Obesity (BMI 30-39.9) Medical History Encounter for wellness examinati on Medical History Suspected COVID-19 virus infecti on Medical History Contusion of left lo wer extremity, initial encounter Medical History Fatigue Medical History Recurrent cold sores Medical History Therapeutic drug monitoring Medical History Mycobacterium avium complex Medical History ERICH (generalized anxiety disorde r) Medical History Mild episode of recurrent major depressive disorder Medical History Well woman exam Medical History History of empyema of pleura Medical History Cervical spondylosis Medical History History of pericarditis Medical History Rotator cuff tear, right Surgical History Left Small Finger x 2 Surgical History Left Thumb fused Surgical History Right Index Finger Surgical History Right Shoulder Arthroscopy 06/11 014 Surgical History Right Foot x 2 Surgical History Lumbar Spine x 2 Surgical History Cervical Spine x 2 Surgical History Hysterectomy Surgical History revision of external fixation device in L fibula, open approach Surgical History tonsillectomy and adenoidectomy Surgical History ORIF, proximal fibula Surgical History [facility] 2011 Surgical History Lumbar fusion Surgical History ACDF C4-6 05/30 Surgical History Right reverse total shoulder ar throplasty 03/2023 Hospitalization History See Above [facility] Other Hospital course Narrative No data available for this section [facility] Dis[facility] instructions No data available for this section [facility] CenterProgress note No data available for this section [facility] Summary Purpose Family History No Family History Records FoundNo Family History Records FoundNo Family History Records FoundNo Family History Records Found No data available for this section No Family History Records FoundNo Family History Records Found Advance Directives No Advanced Directives Records FoundNo Advanced Directives Records FoundNo Advanced Directives Records FoundNo Advanced Directives Records FoundNo Advanced Directives Records FoundNo Advanced Directives Records Found Additional Source Comments INFORMATION SOURCE (unrecogn ized section and content) DATE CREATED AUTHOR 12/29/2017 [facility] DATE CREATED AUTHOR AUTHOR'S ORGANIZ ATION 08/29/2018 [facility] DATE CREATED AUTHOR AUTHOR'S ORGANIZ ATION 05/13/2020 [facility] DATE CREATED AUTHOR AUTHOR'S ORGANIZ ATION 10/15/2022 [facility] DATE CREATED AUTHOR AUTHOR'S ORGANIZ ATION 04/23/2023 [facility] DATE CREATED AUTHOR AUTHOR'S ORGANIZ ATION 07/22/2023 [facility] EPIC REASON FOR VISIT (unrecogniz ed section and content) 1 MONTH FOLLOW UPNo Informat ionRefillWeight Discussion1 month Follow upMedication RefillMedication Question1 month Follow upRefillrefillNo InformationNo InformationrefillNo Informationrefillcoughing for over a week Patient Care team informatio n (unrecognized section and content) Personnel Name: JOHN ASHBY DO Address: Address: [address] [place] [address] Personnel Name: JOHN ASHBY DO Address: Address: [address] [place] [address] Name: Cesia Artis FOR RECORDS PERTAINING TO PATIENTS WHO ARE OR HAVE BEEN ENROLLED IN A CHEMICAL DEPENDENCY/SUBSTANCEABUSE PROGRAM, SOME INFORMATION MAY BE OMITTED. This clinical summary was aggregated from multiple sources. Caution should be exercised in using it in the provision of clinical care. This summary normalizes information from multiple sources, and as a consequence, information in this document may materially change the coding, format and clinical context of patient data. In addition, data may be omitted in some cases. CLINICAL DECISIONS SHOULD BE BASED ON THE PRIMARY CLINICAL RECORDS. [facility] [email or web address] [facility]. provides no warranty or guarantee of the accuracy or completeness of information in this document.
== END 2023-08-02 14:54 | disposition home or self-care (01) ==
LOC: PM 14:53
PROVIDERS: PCP Internal Medicine; Visit Provider Anesthesiology Pain Medicine
DX: M19.012 Primary osteoarthritis, left shoulder (principal); M62.838 Other muscle spasm
CPT/HCPCS: 20610; J0665; J3301

== ENCOUNTER 2023-08-30 14:29 | Outpatient (OUT) | payer BC, MEDICARE, SELFPAY ==
--- OUTSIDE RECORDS SUMMARY | 2023-08-30 14:54 | XMS_ITS | CCD ---
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 M.predicted among non-blacks MDRD (S/P/Bld) [Vol rate/Area] 72 mL/min/1.73 m2 Normal >=59mL/min/1 .73 m2 [facility] [place] Chem S Comment on above: Interpretive Data: C hronic kidney disease could be indicated at eGFR's of less than 60 mL/min/1.73m2. Kidney failure is indicated at less than 15 mL/min/1.73m2. Potassium [Moles/Vol] 4.0 mmol/L Normal 3.5 - 5.3 mmol/L FT Remisol Sodium [Moles/Vol] 143 mmol/L Normal 135 - 145 mmol/L [facility] [place] Remisol Urea nitrogen [Mass/Vol] 20 mg/dL Normal 5 - 21 mg/dL [facility] [place] Remisol Consent for Anesthesiaon Consent for Anesthesia [id number]#1 .00CD:127 Normal [facility] Creatinineon 04-07-2023 Creatinine [Mass/Vol] 0.9 mg/dL Normal 0.5-1.3 [facility] Comment on above: Performed By: #### 2 893288, 7460003, 6400920, 4342432, 64413876, 4985168 ####[facility] [address] [place] [address] Discharge Instructionson Discharge Instructions [id number]# 1.00CD:127 Normal [facility] Discharge Note-Nursingon Discharge Note-Nursing RADHA ZAIDI [...] Pending Diagnostic Test Results None Pharmacy Information [facility] New Follow Up Appointments after Discharge Follow Up with Jordan Yuan When: Where: [address] [place] [address]- Business (1) Follow Up with JOHN ASHBY When: In 0 days Where: [address] , [place] [address]- Business (1) Medications What How Much When Instructions Next Dose Changed acetaminophen-oxycodo ne (Percocet 5 mg-325 mg oral tablet) See instructions 1-2 tab(s) Oral q4hr Pickup at [facility]/pharmacy #6177 Next dose due after 10am Unchanged buPROPion (Wellbutrin XL 300 mg/ 24 hours Tab-ER) 1 Tablets By Mouth 2 times a day 04/07/23 @ 9pm Unchanged celecoxib (CeleBREX 100 mg Cap) 1 Capsules By Mouth 2 times a day as needed for for pain Pickup at [facility]/pharmacy #6177 04/07/23 @ 9pm Unchanged cephalexin (Keflex 500 mg Cap) 1 Capsules By Mouth Every 8 hours Duration: 7 Days Pickup at [facility]/pharmacy #6177 04/07/23 @ 2pm and bedtime Unchanged docusate (Colace 100 mg Cap) 1 Capsules By Mouth 2 times a day as needed for for constipation Pickup at [facility]/pharmacy #6177 04/07/23 @ 9pm Unchanged leflunomide (Arava [...] Oral in AM 3 tabs at bedtime 09/28/23 @ 9pm Unchanged upadacitinib (Rinvoq 15 mg oral tablet, extended release) 1 Tablets By Mouth Every day 04/08/23 @ 9am Pharmacy Information [facility]/pharmacy #6177: [address] [place], [place] [id number] [phone] Test Results CBC BMP WBC: 9.6 E9/L [...] Lateralized/ 24, Shoulder Implant 04/06/2023 Univers revers [place] humeral Stem Size 9, Shoulder Implant 04/06/2023 UniversRevers SutureCap, 36 neutral, shoulder Implant 04/06/2023 universrevers Humeral Insert, small, 36, +6, Shoulder (more content not included)... Normal [facility] HEMATOLOGYOrdered By: SYSTEM SYSTEM on 04-07-2023 [...] [facility] HEMATOLOGYOrdered By: Jordan Hall on 09-28-2023 Erythrocyte distribution width (RBC) [Ratio] 14.6 % [...] Inpatient Clinical Summaryon 04-07-2023 Inpatient Clinical Summary [place] [id number] Clinical Summary Person Information: Name: RADHA ZAIDI Age: 62 Years : 1960 Sex: Female PCP: JOHN ASHBY DO Marital Status: Phone: [phone] Race: White Ethnicity: Non- or Language: Japanese Visit Id: Visit Reason: OA RIGHT SHOULDER Speciality: Acuity: Enc Type: Observation Med Service: Medical Arrival: 04/06/2023 06:09:55 Discharge: Dispo Type: Address: [address] [place] [address] [address] [place] [id number] Provider Notes: Patient: RADHA ZAIDI Age: 62 [...] DO Follow up: With: Address: When: Jordan Yuan [address] [place], [place] [address] [place] [address] [facility] (1) 04/19/2023 2:15 PM With: Address: When: JOHN ASHBY [address] [place] [address] Business (1) Patient Education Information: Iris Yuan - Shoulder Replacement (Custom) Normal [facility] Inpatient Patient Summaryon 04-07-2023 Inpatient Patient Summary [address] [address] Patient Discharge Instructions PERSON INFORMATION [...] None Follow up: With: Address: When: Jordan Yuan [address] [place] [address] Business (1) 04/19/2023 2:15 PM With: Address: When: JOHN ASHBY [address] [place] [address] Business (1) In the event that [...] Medications to Continue Taking That Have Changed [facility], [address] [place], [place] [id number], [phone] START: acetaminophen-oxycodo ne (Percocet 5 mg-325 mg oral tablet) 1-2 tab(s) Oral q4hr. Refills: 0. Last Dose: ____Next Dose: ____ STOP: acetaminophen-oxycodo ne (Percocet 5 mg-325 mg oral tablet) 1 Tablets By Mouth 3 times a day. Medications to Continue with No Changes [facility]/pharmacy #6177, [address] [place], [place] [id number], [phone] celecoxib (CeleBREX 100 mg Cap) 1 Capsules [...] Tablets By Mouth every day. Pharmacy Information: [facility] [phone] (more content not included)... Normal [facility] IntraOperative Documentson 0 04-07-2023 IntraOperative Documents [id number]#1 .00CD:127 Normal [facility] IntraOperative Documents [id number]#1 .00CD:127 Normal [facility] Lyteson 04-07-2023 Anion gap [Moles/Vol] 6 mmol/L Normal 6-16 [facility] Comment on above: Performed By: #### 2 744375, 8164411, 6643533, 8757434, 80219047, 9736825 ####[facility] [address] [place] [address] Chloride [Moles/Vol] 118 mmol/L High 101-111 [facility] Comment on above: Performed By: #### 2 492750, 0889797, 6217051, 6765631, 66344462, 7561366 ####[facility] [address] [place] [address] CO2 [Moles/Vol] 23 mmol/L Normal 21-31 [facility] Comment on above: Performed By: #### 2 676188, 6539619, 1304043, 6283373, 99099810, 5661733 ####[facility] [address] [place] [address] Potassium [Moles/Vol] 4.0 mmol/L Normal 3.5-5.3 [facility] Comment on above: Performed By: #### 2 397174, 2502140, 1378174, 2173557, 34439202, 2887413 ####[facility] [address] [place] [address] Sodium [Moles/Vol] 143 mmol/L Normal 135-145 [facility] Comment on above: Performed By: #### 2 637979, 2795296, 9713522, 2090813, 38764826, 4920192 ####[facility] [address] [place] [address] Main OR Intraoperative Recor don 04-07-2023 Main OR Intraoperative Record IntraOp Document Type FT Summary Primary Physician: Jordan Yuan DO Finalized Date/Time: 04/07/23 14:30:58 Pt. Name: RADHA ZAIDI/Sex: 1960 Female Med Rec #: [id number] Physician: Jordan Yuan DO Financial #: [id number] Pt. Type: A Room/Bed: [place] [address] Admit/Disch: 04/06/23 06:09:55 - 04/07/23 09:30:00 Institution: Case Times FT Entry 1 Patient Times In Room 04/06/23 09:32:00 Out Room 04/06/23 11:36:00 Procedure Times Start 04/06/23 10:14:00 Stop 04/06/23 11:30:00 Anesthesia Times Start 04/06/23 09:32:00 Stop 04/06/23 11:36:00 Block Timeout w04/06/23 08:24:00 Anesthesia Last Modified By: Susi HARO, Dennis Curry 04/06/23 11:35:46 General Comments: Right shoulder block performed by under ultrasound guidance. K.Svetlana, RN to assist with the block. Block timeout at 0824. Patient's heartrate-78, SPo2- 100% on room air. patient tolerated block well. Block start at 0833. Block end at 0836. Patient transported via cart back to ASU bay 5 and placed on SP02 monitor by ESTRELLITA De La Fuente. 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 molding supervisor Last Modified By: Wanda SOCCER COACH, Sharmaine Goldman RN, Dennis Goldman RN, Dennis Curry 04/07/23 14:28:51 04/06/23 11:35:47 04/06/23 11:35:47 Entry 4 Entry 5 Entry 6 Case Attendee Valerie MARI, Jena Taylor CST, Benjamin Role Performed Scrub - Primary Scrub - Primary SOCCER COACH/SA Time In 04/06/23 09:32:00 04/06/23 09:32:00 04/06/23 09:32:00 Time Out 04/06/23 11:20:00 04/06/23 11:36:00 04/06/23 11:36:00 Procedure SHOULDER TOTAL SHOULDER TOTAL SHOULDER TOTAL ARTHROPLASTY(Right) ARTHROPLASTY(Right) ARTHROPLASTY(Right) Comments in orientation Last Modified By: Susi RN, Dennis Goldman RN, Dennis Goldman RN, Dennis Curry 04/06/23 11:35:47 04/06/23 11:35:47 04/06/23 11:35:47 Entry 7 Entry 8 Case Attendee Andie Fuentes Jennifer E Role Performed Staff - Other Staff - Other Time In 04/06/23 09:32:00 04/06/23 09:32:00 Time Out 04/06/23 11:36:00 04/06/23 11:13:00 Procedure SHOULDER TOTAL SHOULDER TOTAL ARTHROPLASTY(Right) ARTHROPLASTY(Right) Comments scrubbed in, retractor scrubbed in, retractor munoz munoz Last Modified By: Dennis Goldman RN, RN, Andrea L 04/06/23 11:35:47 04/06/23 11:35:47 General Comments: Gunner [...] Yuan DO, Krupp RN, Dennis Curry, Valerie MARI, Johnathna Hernandez Sydney A, Wilhelm CST, Alfredo Lopez Jessica D, Deyanira Oates Time Out Complete 04/05/23 10:13:00 Outcomes Met? [...] traffic control (more content not included)... Normal [facility] Main OR PACU I Recordon 03-12 Main OR PACU I Record PACU Phase I Docum ent Type FT Summary Primary Physician: Jordan Yuan DO Finalized Date/Time: 04/07/23 08:05:19 Pt. Name: ZAIDIRADHA/Sex: 1960 Female Med Rec #: [id number] Physician: Jordan Yuan DO Financial #: [id number] Pt. Type: O Room/Bed: [place] [address] Admit/Disch: 04/06/23 06:09:55 - Institution: Case Times [...] 13:18:10 General Comments: 04/07/2023 0804hr Mae-op doc updated. ESTRELLITA Elizondo Finalized By: Cate Gonsales RN Document Signatures Signed By: Cate Gonsales RN 04/07/23 08:04 Cate Gonsales RN 04/07/23 08:05 Normal [facility] Patient Education - Texton 0 04-07-2023 Patient Education - Text [place], [place] [facility] DISCHARGE INSTRUCTIONS: SHOULDER REPLACEMENT [...] persistent vomiting. Jordan Yuan DO [facility] [address] [place] [address] Reviewed: Normal [facility] Preoperative Documentson Preoperative Documents [id number]#1 .00CD:127 Normal [facility] Progress Note-Physicianon Progress Note-Physician Patient: RADHA [...] Pressure 63 mmHg SpO2 94 % Normal [facility] Comment on above: Result Comment: Elec tronically Signed By: Jordan Yuan DO\.br\Date and Time Signed: 04/07/23 07:40 EDT eGFRon 04-07-2023 GFR/1.73 sq M.predicted among non-blacks MDRD (S/P/Bld) [Vol rate/Area] 72 mL/min/1.73 m2 Normal >=59 [facility] Comment on above: Order Comment: Order added by Discern Expert. Result Comment: Olive Grader dina kidney disease could be indicated at eGFR's of less than 60 mL/min/1.73m2. Kidney failure is indicated at less than 15 mL/min/1.73m2. Performed By: #### 2 785117, 8052908, 1461579, 8347834, 12002586, 1767410 ####[place] [address] [place] [address] ABO/Rhon 04-06-2023 ABO/Rh Positive Invalid Interpretation Code [facility] Comment on above: Performed By: #### 1 2031658, 51648466, 75787167, 2250302 ####[facility] [address] [place] [address] ABO/Rh History Checkon 04-06 ABO/Rh History Check Verified Hx Blood Type Normal [facility] Comment on above: Performed By: #### 1 6763578, 08613646, 06516901, 3087181 ####[facility] [address] [place] [address] ABSCon 04-06-2023 ABSC Gel Interp Negative Normal [facility] Comment on above: Performed By: #### 1 4189474, 81062743, 02028264, 4231093 ####[facility] [address] [place] [address] BLOOD BANKOrdered By: Andra Nunez on 04-06-2023 ABO/Rh Interp Positive Invalid Interpretation Code [facility] BB Subsection ABSC Gel Interp Negative (04/06/23 7:23 AM) Normal [facility] [place] BB Subsection Blood Bank ID#on 04-06-2023 BBID# [id number] Invalid Interpretation Code [facility] Comment on above: Performed By: #### 1 2554880, 26863361, 37126767, 4680128 ####[facility] [address] [place] [address] Consent for Treatmenton 03-12 Consent for Treatment [id number]#1 .00CD:127 Normal [facility] H&P Updateon 04-06-2023 H&P Update [id number]#1 .00CD:127 Normal [facility] Insurance Correspondence Off iceon 04-06-2023 Insurance Correspondence Office [id number]# 1.00CD:127 Normal [facility] Main OR Preoperative Recordo n 04-06-2023 Main OR Preoperative Record PreOp Document Type FT Summary Primary Physician: Jordan Yuan DO Finalized Date/Time: 04/06/23 09:32:24 Pt. Name: RADHA ZAIDI/Sex: 1960 Female Med Rec #: [id number] Physician: Jordan Yuan DO Financial #: [id number] Pt. Type: A Room/Bed: [facility] Admit/Disch: 04/06/23 06:09:55 - Institution: Case Times PreOp FT Pre-Care Text: Verifies consent for planned procedure, identifies individual values and wishes concerning care, includes family members in perioperative teaching Entry 1 Patient Times. In Pre Surgery 04/06/23 06:30:00 Out Pre Surgery 04/06/23 09:30:00 Outcomes Met? Yes Last Modified By: Dennis Goldman RN 04/06/23 09:32:22 Post-Care Text: The patient participates in decisions affecting his or her perioperative plan of care Finalized By: Dennis Goldman RN Document Signatures Signed By: Dennis Goldman RN 04/06/23 09:32 Normal [facility] Monitor Recordon 04-06-2023 Monitor Record [id number]# 1.00CD:127 Normal [facility] Monitor Record [id number]# 1.00CD:127 Normal [facility] Monitor Record [id number]# 1.00CD:127 Normal [facility] Operative Reporton Operative Report Patient: RADHA ZAIDI Age: 62 years Sex: Female : 1960 Associated Diagnoses: None Author: Jordan Yuan DO DATE OF SURGERY: 04/06/2023 SURGEON: Jordan Yuan D.O. DIGESTER OPERATOR: Anival Flores CFA PREOPERATIVE DIAGNOSIS: Massive rotator cuff tear, right shoulder POSTOPERATIVE DIAGNOSIS: Massive rotator cuff tear, right shoulder OPERATION: Right reverse total shoulder arthroplasty ANESTHESIA: General with a regional block ANESTHESIOLOGIST: Colin Rai DO and Adiel Steinberg CRNA IMPLANTS USED: Ar[employer] Revers System 1. 24 mm 10 degree full augment standard baseplate, 20 mm central post, four peripheral screws measuring 4.5 mm x 28 mm & 32 mm nonlocking, two 5.5 mm x 20 mm locking 2. 36 +4 Glenosphere 3. size +6 humeral insert 4. Revers [place] size 9 stem with 36 (neutral) Suturecup OPERATIVE INDICATIONS: Radha is a 62-year-old xnkhz-fxfk-twidxowr female who has had persistent right shoulder [...] The depth-stop (more content not included)... Normal [facility] Comment on above: Result Comment: Elec [...] Using maximal sterile barrier technique per current [facility] guidelines including hand hygeine, Guidance (Ultrasound used [...] The patient tolerated the procedure as expected. Normal [facility] Comment on above: Result Comment: Elec tronically Signed By: Yanick Rai DO\.br\Date and Time Signed: 04/06/23 08:44 EDT Progress Note-Physicianon Progress Note-Physician Patient: RADHA ZAIDI Age: 62 years Sex: Female : 1960 Associated Diagnoses: None Author: Yanick Rai DO Postoperative Information Postoperative disposition: Postoperative disposition: To PACU. Optimetrix number: Optimetrix number [id number]. Anesthetic utilized: General. Regional: Interscalene Block. Health [...] pain, # 60 cap(s), Refills(s) 0, Pharmacy: [facility]/pharmacy #5139, 160, cm, 03/25/23 6:16:00 EDT, Height/Length Dos (more content not included)... 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 Family History: Primary malignant neoplasm of prostate Father Acute myocardial infarction Mother Procedure history: Cervical laminectomy (1882153100). Amputation of finger (048034437). Removal of lung, Partial (58290). Open reduction and internal fixation of fracture Leg (917040810). Foot surgery (7611428325). Lumbar discectomy (997775365). Social History Social & Psychosocial Habits Alcohol [...] (APR 06 06:39) DBP 75 mmHg (APR 06 06:39) SpO2 95 % (APR 06 06:39) Airway: Mallampati classification: II (soft palate, fauces, uvula visible). Distance: Mentohyoid, Interincisive, Thyromental, Mentosternal, Adequate. HENT: Normocephalic. Respiratory: Lungs are clear to auscultation. (more content not included)... Normal [facility] Comment on above: Result Comment: Elec tronically Signed By: Yanick Rai DO.zari\Date and Time Signed: 04/06/23 08:05 EDT XR [...] mGy = na DAP = na Normal [facility] Consent for Procedure/Surger yon 04-05-2023 Consent for Procedure/Surgery [id number]#1 .00CD:127 Normal [facility] CT Upper Extremity w/o Contr ast [...] DO Transcribed by: DANISHA Technologist: CONSTANTINO Normal [facility] ABO/Rh Retypeon 03-24-2023 ABO/Rh Retype Interp Positive Invalid Interpretation Code [facility] Comment on above: Performed By: #### 1 [id number] ####[facility] [address] [place] [address] BLOOD BANKOrdered By: Andra Longoria on 03-24-2023 ABO/Rh Retype Interp Positive Invalid Interpretation Code [facility] BB Subsection BUNon 03-24-2023 Urea nitrogen [Mass/Vol] 28 mg/dL High 5-21 [facility] Comment on above: Performed By: #### 1 5916252, 9481652, 6664864, 3644754, 4788906, 6813489 #### [facility] [address] [place] [address] CBC w/Indiceson 03-24-2023 Erythrocyte distribution width (RBC) [Ratio] 14.5 % High 10.9-14.2 [facility] Comment on above: Performed By: #### 1 9766345, 6610666, 8670963, 4283949, 7526439, 6298769 #### [facility] [address] [place] [address] Hematocrit (Bld) [Volume fraction] 35.9 % Normal 34.0-46.0 [facility] Comment on above: Performed By: #### 1 8979401, 2128733, 6883706, 4513370, 1238868, 0632759 #### [facility] [address] [place] [address] Hemoglobin (Bld) [Mass/Vol] 11.9 g/dL Low 12.0-16.0 [facility] Comment on above: Performed By: #### 1 7623444, 6627627, 6070953, 9477229, 8094253, 2857236 #### [facility] [address] [place] [address] MCH (RBC) [Entitic mass] 32.3 pg Normal 27.0-34.0 [facility] Comment on above: Performed By: #### 1 1510311, 2320954, 2036272, 8631426, 0365927, 4709179 #### [facility] [address] [place] [address] MCHC (RBC) [Mass/Vol] 33.1 g/dL Normal 31.4-36.0 [facility] Comment on above: Performed By: #### 1 1132053, 9067821, 7402499, 8199598, 8259311, 3074583 #### [facility] [address] [place] [address] MCV (RBC) [Entitic vol] 97.4 fL Normal 80.0-100.0 [facility] Comment on above: Performed By: #### 1 1012951, 1626768, 0698639, 3080942, 1091788, 0889047 #### [facility] [address] [place] [address] Platelet mean volume (Bld) [Entitic vol] 7.4 fL Normal 6.4-10.8 [facility] Comment on above: Performed By: #### 1 1173253, 3562126, 3730488, 9646772, 3052370, 6548882 #### [facility] [address] [place] [address] Platelets (Bld) [#/Vol] 207.0 E9/L Normal 150.0-500.0 [facility] Comment on above: Performed By: #### 1 1327935, 4593792, 3619883, 5280629, 7271060, 3907366 #### [facility] [address] [place] [address] RBC (Bld) [#/Vol] 3.7 E12/L Low 4.3-5.9 [facility] Comment on above: Performed By: #### 1 8662805, 8839554, 0818472, 5824414, 0350969, 3144734 #### [facility] [address] [place] [address] WBC corrected for nucl RBC Auto (Bld) [#/Vol] 3.5 E9/L Low 4.0-11.0 [facility] Comment on above: Performed By: #### 1 5780090, 9441898, 3511973, 0577357, 8972377, 9093534 #### [facility] [address] [place], [place] [address] CHEMISTRYOrdered By: SYSTEM SYSTEM on 03-24-2023 Anion gap [Moles/Vol] 12 mmol/L Normal 6 - 16 mEq/L F [facility] Remisol Chloride [Moles/Vol] 111 mmol/L Normal 101 - 1 11 mmol/L [facility] Remisol CO2 [Moles/Vol] 20 mmol/L Low 21 - 31 mmol/L [facility] Remisol Creatinine [Mass/Vol] 1.2 mg/dL Normal 0.5 - 1.3 mg/dL [facility] Remisol GFR/1.73 sq M.predicted among non-blacks MDRD (S/P/Bld) [Vol rate/Area] 51 mL/min/1.73 m2 Low >=59mL/min/1 .73 m2 [facility] Chem S Glucose [Mass/Vol] 84 mg/dL Normal 55 - 199 mg/dL [facility] Remisol Potassium [Moles/Vol] 4.2 mmol/L Normal 3.5 - 5.3 mmol/L [facility] Remisol Sodium [Moles/Vol] 139 mmol/L Normal 135 - 145 mmol/L [facility] Remisol Urea nitrogen [Mass/Vol] 28 mg/dL High 5 - 21 mg/dL [facility] Remisol Consent for Treatmenton 03-11 Consent for Treatment [id number] .00CD:127 Normal [facility] Creatinineon 03-24-2023 Creatinine [Mass/Vol] 1.2 mg/dL Normal 0.5-1.3 [facility] Comment on above: Performed By: #### 1 [id number], [id number], 6903945, 8203297, 4694235, 9480098 #### [facility] [address] [place] [address] Glucoseon 03-24-2023 Glucose [Mass/Vol] 84 mg/dL Normal 55-199 [facility] Comment on above: Performed By: #### 1 [id number], 7224295, 6052698, 2026864, 5842232, 4060248 #### [facility] [address] [place] [address] HEMATOLOGYOrdered By: Andra Longoria on 03-24-2023 Erythrocyte distribution width (RBC) [Ratio] 14.5 % High 10.9 - 14.2 % FT HemeAutoSS Hematocrit (Bld) [Volume fraction] 35.9 % Normal 34.0 - 46.0 % FT HemeAutoSS Hemoglobin (Bld) [Mass/Vol] 11.9 g/dL Low [...] 7.4 fL Normal 6.4 - 10.8 fL FT HemeAutoSS Platelets (Bld) [#/Vol] 207.0 E9/L Normal 150.0 - 500.0 E9/L FT HemeAutoSS RBC (Bld) [#/Vol] 3.7 E12/L Low 4.3 - 5.9 E12/L FT HemeAutoSS WBC corrected for nucl RBC Auto (Bld) [#/Vol] 3.5 E9/L Low 4.0 - 11.0 E9/L FT HemeAutoSS Lyteson 03-24-2023 Anion gap [Moles/Vol] 12 mmol/L Normal 6-16 [facility] Comment on above: Performed By: #### 1 [id number], 8622355, 6404558, 8727277, 3078706, 5538492 ####[facility] [address] [place] [address] Chloride [Moles/Vol] 111 mmol/L Normal 101-111 [facility] Comment on above: Performed By: #### 1 3449467, 6292922, 3754168, 5012448, 7122864, 2557964 ####[facility] [address] [place] [address] CO2 [Moles/Vol] 20 mmol/L Low 21-31 [facility] Comment on above: Performed By: #### 1 [id number], 8682543, 1695507, 2034569, 1157564, 6076419 ####[facility] [address] [place] [address] Potassium [Moles/Vol] 4.2 mmol/L Normal 3.5-5.3 [facility] Comment on above: Performed By: #### 1 0573569, 2502020, 3791057, 6572801, 4089988, 0476879 ####[facility] [address] [place] [address] Sodium [Moles/Vol] 139 mmol/L Normal 135-145 [facility] Comment on above: Performed By: #### 1 8900679, 3874023, 9925800, 3658697, 0722838, 3337454 ####[address] [place] [address] UA With Cult Reflexon 2022 Bilirubin Ql (U) Negative Normal Negative [facility] Comment on above: Performed By: #### 1 [id number] ####[address] [address] Clarity (U) CLEAR Normal Clear [facility] Comment on above: Performed By: #### 1 [id number] ####[address] [place] [address] Color (U) YELLOW Normal Yellow [facility] Comment on above: Performed By: #### 1 [id number] ####[address] [address] Epithelial cells.squamous LM.HPF (Urine sed) [#/Area] 0-2 Normal 0-2 [facility] Comment on above: Performed By: #### 1 [id number] ####[facility] [address] [place] [address] Fine Granular Casts LM Ql (Urine sed) 0-3 Normal [facility] Comment on above: Performed By: #### 1 [id number] ####[address] [address] Glucose Test strip (U) [Mass/Vol] Negative Normal Negative [facility] Comment on above: Performed By: #### 1 5771045 ####[address] [address] Hemoglobin Ql (U) Negative Normal Negative [facility] Comment on above: Performed By: #### 1 [id number] ####[address] [address] Ketones (U) [Mass/Vol] Negative Normal Negative [facility] Comment on above: Performed By: #### 1 0354659 ####[address] [address] [place].plasma/Lithiu m.RBC (Bld) [Mass ratio] 0-3 Normal 0-3 [facility] Comment on above: Performed By: #### 1 1771901 ####[address] [address] Mucus Ql (Urine sed) TRACE Normal [facility] Comment on above: Performed By: #### 1 7959463 ####[address] [address] Nitrite Ql (U) Negative Normal Negative [facility] Comment on above: Performed By: #### 1 6230882 ####[address] [address] pH (U) 6.0 [pH] Invalid Interpretation Code 5.0-9.0 [facility] Comment on above: Performed By: #### 1 [id number] ####[address] [address] Protein (U) [Mass/Vol] Negative Normal Negative [facility] Comment on above: Performed By: #### 1 0324410 ####[address] [address] Specific gravity (U) [Rel density] >=1.030 Invalid Interpretation Code 1.005-1.030 [facility] Comment on above: Performed By: #### 1 [id number] ####[facility] [address] [place] [address] Type of Urine collection method Clean Catch Normal [facility] Comment on above: Performed By: #### 1 9585004 ####[facility] [address] [place] [address] Urobilinogen Qn (U) 0.2 {Rajwinder'U}/dL Normal 0.0-1.0 [facility] Comment on above: Performed By: #### 1 3967356 ####[facility] [address] [place] [address] WBC Auto Ql (U) Negative Normal Negative [facility] Comment on above: Performed By: #### 1 4253999 ####[facility] [address] [place] [address] WBC LM.HPF (Urine sed) [#/Area] 0-5 Normal 0-5 [facility] Comment on above: Performed By: #### 1 6126868 ####[facility] [address] [place] [address] URINALYSISOrdered By: Indira calix on 03-24-2023 Bilirubin Ql (U) Negative (03/24/23 3:05 PM) Normal Negative FT UA Auto SS Clarity (U) Clear (03/24/23 3:05 PM) Normal Clear FT UA Auto SS Color (U) Yellow (03/24/23 3:05 PM) Normal Yellow FT UA Auto SS Epithelial cells.squamous LM.HPF (Urine sed) [#/Area] 0-2 /HPF Normal 0-2/HPF [facility] UA Aut o SS Fine Granular Casts LM Ql (Urine sed) 0-3 (03/24/23 3:05 PM) Normal [facility] UA Auto SS Glucose Test strip (U) [Mass/Vol] Negative (03/24/23 3:05 PM) Normal Negative [facility] UA Auto SS Hemoglobin Ql (U) Negative (03/24/23 3:05 PM) Normal Negative [facility] UA Auto SS Ketones (U) [Mass/Vol] Negative (03/24/23 3:05 PM) Normal Negative [facility] UA Auto SS [place].plasma/Lithiu m.RBC (Bld) [Mass ratio] 0-3 /HPF Normal 0-3/HPF [facility] UA Auto SS Mucus Ql (Urine sed) Trace (03/24/23 3:05 PM) Normal [facility] UA Auto SS Nitrite Ql (U) Negative (03/24/23 3:05 PM) Normal Negative [facility] UA Auto SS pH (U) 6.0 *NA* (03/24/23 3:05 PM) Invalid Interpretation Code 5.0 - 9.0 [facility] UA Auto SS Protein (U) [Mass/Vol] Negative (03/24/23 3:05 PM) Normal Negative [facility] UA Auto SS Specific gravity (U) [Rel density] >=1.030 *NA* (03/24/23 3:05 PM) Invalid Interpretation Code 1.005 - 1.030 [facility] UA Auto SS UA Spec Desc Clean Catch (03/24/23 3:05 PM) Normal [facility] UA Auto SS Urobilinogen Qn (U) 0.9877007 {Rajwinder'U}/dL Normal 0.0 - 1.0 EU/dL [facility] UA Auto SS WBC Auto Ql (U) Negative (03/24/23 3:05 PM) Normal Negative [facility] UA Auto SS WBC LM.HPF (Urine sed) [...] DANISHA Technologist: CONSTANTINO Technical Comments Radiation Dose: Karony in mGy = na DAP = na Normal [facility] eGFRon 03-24-2023 GFR/1.73 sq M.predicted among non-blacks MDRD (S/P/Bld) [Vol rate/Area] 51 mL/min/1.73 m2 Low >=59 [facility] Comment on above: Order Comment: Order added by Discern Expert. Result Comment: Olive Grader dina kidney disease could be indicated at eGFR's of less than 60 mL/min/1.73m2. Kidney failure is indicated at less than 15 mL/min/1.73m2. Performed By: #### 1 [id number], 8599202, 7801386, 3541607, 2416756, 1416599 #### [facility] [address] [place] [address] Physician Orderon 03-23-2023 Physician Order [id number] Normal [facility] XR SHOULDER RT 2V or >on [...] by: VANDANA YUAN Date: 2022-10-07 22:08 Normal [facility] CBC AUTO DIFFon 09-16-2022 BASO # 0.0 103/ul Normal 0.0-0.1 [facility] Comment on above: Performed By: #### C BC ####[facility] [address] [place] [address]Dr. Andrade Alvarado Basophils/100 WBC (Bld) 0.5 % Normal 0.2-2.0 [facility] Comment on above: Performed By: #### C BC ####[facility] [address] [place] [address]Dr. Andrade Alvarado EO # 0.1 103/ul Normal 0.0-0.7 [facility] Comment on above: Performed By: #### C BC ####[facility] [address] [place] [address]Dr. Andrade Alvarado Eosinophils/100 WBC (Bld) 2.3 % Normal 0.9-7.0 [facility] Comment on above: Performed By: #### C BC ####[facility] [address] [place] [address]Dr. Andrade Alvarado Erythrocyte distribution width (RBC) [Ratio] 13.7 % Normal 11.0-15.0 [facility] Comment on above: Performed By: #### C BC ####[facility] [address] [place] [address]Dr. Andrade Alvarado Hematocrit (Bld) [Volume fraction] 32.8 % Critically low 36.0-48.0 [facility] Comment on above: Performed By: #### C BC ####[facility] [address] [place] [address]Dr. Andrade Alvarado Hemoglobin (Bld) [Mass/Vol] 10.9 g/dL Critically low 12.0-16.0 [facility] Comment on above: Performed By: #### C BC ####[facility] [address] [place] [address]Dr. Andrade Alvarado IG # 0.02 10e3/ul Normal 0.00-0.03 [facility] Comment on above: Performed By: #### C BC ####[facility] [address] [place] [address]Dr. Andrade Alvarado IG % 0.5 % Normal 0.0-0.5 [facility] Comment on above: Performed By: #### C BC ####[facility] [address] [place] [address]Dr. Andrade Christiano LYMPH # 1.6 103/ul Normal 1.2-3.8 [facility] Comment on above: Performed By: #### C BC ####[facility] [address] [place] [address]Dr. Andrade Christiano Lymphocytes/100 WBC (Bld) 41.8 % Normal 20.5-60.0 [facility] Comment on above: Performed By: #### C BC ####[facility] [address] [place] [address]Dr. Kellengregory Alvarado MANUAL DIFF REQ NO Normal [facility] Comment on above: Performed By: #### C BC ####[facility] [address] [address]Dr. Andrade Christiano MCH (RBC) [Entitic mass] 31.9 pg Normal 26.7-34.0 [facility] Comment on above: Performed By: #### C BC ####[facility] [address] [place] [address]Dr. Andrade Christiano MCHC (RBC) [Mass/Vol] 33.2 g/dL Normal 29.9-35.2 [facility] Comment on above: Performed By: #### C BC ####[facility] [address] [place] [address]Dr. Kellengregory Alvarado MCV (RBC) [Entitic vol] 95.9 fL Normal 81.0-99.0 [facility] Comment on above: Performed By: #### C BC ####[facility] [address] [place] [address]Dr. Kellengregory Alvarado MONO # 0.5 103/ul Normal 0.3-0.8 [facility] Comment on above: Performed By: #### C BC ####[facility] [address] [place] [address]Dr. Andrade Christiano Monocytes/100 WBC (Bld) 13.1 % Critically high 1.7-12.0 [facility] Comment on above: Performed By: #### C BC ####[facility] [address] [place] [address]Dr. Andrade Alvarado NEUT # 1.6 103/ul Normal 1.4-6.5 [facility] Comment on above: Performed By: #### C BC ####[facility] [address] [place] [address]Dr. Andrade Alvarado Neutrophils/100 WBC (Bld) 41.8 % Critically low 43.0-75.0 [facility] Comment on above: Performed By: #### C BC ####[facility] [address] [place] [address]Dr. Kellengregory Christiano Platelet mean volume (Bld) [Entitic vol] 8.8 fL Critically low 9.5-13.5 [facility] Comment on above: Performed By: #### C BC ####[facility] [address] [place] [address]Dr. Kellengregory Christiano PLT 219 103/ul Normal 150-450 [facility] Comment on above: Performed By: #### C BC ####[facility] [address] [place] [address]Dr. Kellengregory Alvarado RBC 3.42 106/ul Critically low 4.20-5.40 [facility] Comment on above: Performed By: #### C BC ####[facility] [address] [place] [address]Dr. Andrade Christiano WBC 3.9 103/ul Critically low 4.0-11.[address] [facility] Comment on above: Performed By: #### C BC ####[facility] [address] [place] [address]DrMehreen Alvarado FERRITINon 09-16-2022 Ferritin [Mass/Vol] 292.0 ng/mL Critically high 8.0-252.0 [facility] Comment on above: Performed By: #### F ERR, B12FOL, FETIBC #### [facility] [address] [place], [place] [address] Dr. Andrade Alvarado IRON AND TIBCon 09-16-2022 % SATURATION 76.2 % Normal [facility] Comment on above: Performed By: #### F ERR, B12FOL, FETIBC #### [facility] [address] [place] [address] [address] Andrade Alvarado Iron [Mass/Vol] 259.0 ug/dL Critically high 50.0-170.0 [facility] Comment on above: Performed By: #### F ERR, B12FOL, FETIBC #### [facility] [address] [address] [address] Andrade Alvarado TIBC DIRECT 340.0 ug/dL Normal 250.0-450.0 [facility] Comment on above: Performed By: #### F ERR, B12FOL, FETIBC #### [facility] [address] [address] [address] Andrade Alvarado PROF 14(COMP METB)on 023 Albumin [Mass/Vol] 4.0 g/dL Normal 3.4-5.0 [facility] Comment on above: Performed By: #### C MP ####[facility] [address] [place] [address]DrMehreen Alvarado Albumin/Globulin [Mass ratio] 1.3 {ratio} Normal [facility] Comment on above: Performed By: #### C MP ####[facility] [address] [place] [address]DrMehreen Alvarado ALP [Catalytic activity/Vol] 47 U/L Normal 46-116 [facility] Comment on above: Performed By: #### C MP ####[facility] [address] [place] [address]DrMehreen Alvarado ALT [Catalytic activity/Vol] 23 U/L Normal 14-59 [facility] Comment on above: Performed By: #### C MP ####[facility] [address]fs[address] [place] [address]DrMehreen Alvarado Anion gap [Moles/Vol] 12.1 mmol/L Normal [facility] Comment on above: Performed By: #### C MP ####[facility] [address]zr[address] [place] [address]DrMehreen Alvarado AST [Catalytic activity/Vol] 23 U/L Normal 15-37 [facility] Comment on above: Performed By: #### C MP ####[facility] [address] [place] [address]Dr. Andrade Alvarado Bilirubin [Mass/Vol] 0.4 mg/dL Normal 0.2-1.0 [facility] Comment on above: Performed By: #### C MP ####[facility] [address] [place] [address]Dr. Andrade Alvarado Calcium [Mass/Vol] 9.3 mg/dL Normal 8.5-10.1 [facility] Comment on above: Performed By: #### C MP ####[facility] [address] [place], [place] [address]Dr. Andrade Alvarado Chloride [Moles/Vol] 108 mmol/L Critically high 98-107 [facility] Comment on above: Performed By: #### C MP ####[facility] Je[address]utl[address] [place], [place] [address]Dr. Andrade Alvarado CO2 [Moles/Vol] 26.9 mmol/L Normal 21.0-32.0 [facility] Comment on above: Performed By: #### C MP ####[facility] M[address] [place], [place] [address]Dr. Andrade Alvarado Creatinine [Mass/Vol] 0.87 mg/dL Normal 0.55-1.02 [facility] Comment on above: Performed By: #### C MP ####[facility] [address] [place], [place] [address]Dr. Andrade Alvarado EGFR-AF TANZANIAN >60 Normal >=60 [facility] Comment on above: Performed By: #### C MP ####[facility] [address] [place], [place] [address]Dr. Andrade Christiano EGFR-NON AF TANZANIAN >60 Normal >=60 [facility] Comment on above: Performed By: #### C MP ####[facility] Wy[address] [place], [place] [address]Dr. Andrade Christiano Globulin (S) [Mass/Vol] 3.0 g/dL Normal [facility] Comment on above: Performed By: #### C MP ####[facility] [address] [place] [address]Dr. Andrade Alvarado Glucose [Mass/Vol] 102 mg/dL Normal 74-106 [facility] Comment on above: Performed By: #### C MP ####[facility] [address]fagg[address] [place] [address]Dr. Andrade Alvarado Potassium [Moles/Vol] 4.0 mmol/L Normal 3.5-5.1 [facility] Comment on above: Performed By: #### C MP ####[facility] [address] [place] [address]Dr. Andrade Alvarado Protein [Mass/Vol] 7.0 g/dL Normal 6.4-8.2 [facility] Comment on above: Performed By: #### C MP ####[facility] Neuf[address]its[address] [place], [place] [address]Dr. Andrade Alvarado Sodium [Moles/Vol] 143 mmol/L Normal 136-145 [facility] Comment on above: Performed By: #### C MP ####[facility] [address] [place], [place] [address]Dr. Andrade Alvarado Urea nitrogen [Mass/Vol] 25.0 mg/dL Critically high 7.0-18.0 [facility] Comment on above: Performed By: #### C MP ####[facility] [address] [place], [place] [address]Dr. Andrade Alvarado Urea nitrogen/Creatinine [Mass ratio] 28.7 mg/mg Normal [facility] Comment on above: Performed By: #### C MP ####[facility] Hg[address]of[address]qq[address] [place], [place] [address]Dr. Andrade Alvarado SED RATE WESTERGRENon 2022 SED RATE 11 mm/hr Normal <=30 [facility] Comment on above: Performed By: #### S EDR ####[facility] [address] [place], [place] [address]Dr. Andrade Alvarado VIT B12 AND FOLATEon 023 Cobalamin (Vitamin B12) [Mass/Vol] 249.0 pg/mL Normal 193.0-986.0 [facility] Comment on above: Performed By: #### F ERR, B12FOL, FETIBC #### [facility] [address] [place] [address] [address] Andrade Alvarado FOLATE 14.00 ng/mL Normal 8.60-58.90 [facility] Comment on above: Performed By: #### F ERR, B12FOL, FETIBC #### [facility] [address] [place] [address] [address] Andrade Alvarado MG MAMM SCREEN 3D BRENNA CADon 2022 MG MAMM SCREEN 3D BRENNA CAD Patient: RADHA ZAIDI Exam Date: 2022 : 1960 Gender:F Ordering : DR JOHN ASHBY D.O. Admission #: [id number] Family : Order #: [id number] CLICK HERE TO VIEW EXAM RADIOLOGY REPORT [...] prostate cancer at age 72. LOCATION: [facility] BREAST COMPOSITION: Scattered areas fibroglandular density. [...] M.D. on 06/09/2022 at 15:30 Normal [facility] CBC AUTO DIFFon 05-20-2022 BASO # 0.0 103/ul Normal 0.0-0.1 [facility] Comment on above: Performed By: #### C BC ####[facility] [address] [place] [id number]. Andrade Alvarado Basophils/100 WBC (Bld) 1.0 % Normal 0.2-2.0 [facility] Comment on above: Performed By: #### C BC ####[facility] A[address] [place], [place] [address]Dr. Andrade Alvarado EO # 0.1 103/ul Normal 0.0-0.7 [facility] Comment on above: Performed By: #### C BC ####[facility] Xx[address]lr[address] [place], [place] [address]Dr. Andrade Alvarado Eosinophils/100 WBC (Bld) 2.5 % Normal 0.9-7.0 [facility] Comment on above: Performed By: #### C BC ####[facility] [address]zeeb[address] [place], [place] [address]Dr. Andrade Alvarado Erythrocyte distribution width (RBC) [Ratio] 13.0 % Normal 11.0-15.0 [facility] Comment on above: Performed By: #### C BC ####[facility] [address] [place], [place] [address]Dr. Andrade Alvarado Hematocrit (Bld) [Volume fraction] 34.9 % Critically low 36.0-48.0 [facility] Comment on above: Performed By: #### C BC ####[facility] [address] [place], [place] [address]Dr. Andrade Alvarado Hemoglobin (Bld) [Mass/Vol] 11.6 g/dL Critically low 12.0-16.0 [facility] Comment on above: Performed By: #### C BC ####[facility] [address] [place], [place] [address]Dr. Andrade Avlarado IG # 0.02 10e3/ul Normal 0.00-0.03 [facility] Comment on above: Performed By: #### C BC ####[facility] [address] [place], [place] [address]Dr. Andrade Alvarado IG % 0.5 % Normal 0.0-0.5 [facility] Comment on above: Performed By: #### C BC ####[facility] [address] [place] [address]Dr. Andrade Alvarado LYMPH # 1.9 103/ul Normal 1.2-3.8 [facility] Comment on above: Performed By: #### C BC ####[facility] [address] [place] [address]Dr. Andrade Christiano Lymphocytes/100 WBC (Bld) 46.1 % Normal 20.5-60.0 [facility] Comment on above: Performed By: #### C BC ####[facility] [address]zky[address] [place] [address]Dr. Kellengregory Alvarado MANUAL DIFF REQ NO Normal [facility] Comment on above: Performed By: #### C BC ####[facility] [address]xjrm[address] [place] [id number]. Andrade Christiano MCH (RBC) [Entitic mass] 32.3 pg Normal 26.7-34.0 [facility] Comment on above: Performed By: #### C BC ####[facility] [address]tj[address] [place] [address]Dr. Andrade Alvarado MCHC (RBC) [Mass/Vol] 33.2 g/dL Normal 29.9-35.2 [facility] Comment on above: Performed By: #### C BC ####[facility] [address]xwgvoixb64[address] [place] [address]Dr. Andrade Christiano MCV (RBC) [Entitic vol] 97.2 fL Normal 81.0-99.0 [facility] Comment on above: Performed By: #### C BC ####[facility] [address]ufa[address] [place] [address]Dr. Andrade Alvarado MONO # 0.5 103/ul Normal 0.3-0.8 [facility] Comment on above: Performed By: #### C BC ####[facility] Adwh[address]wvj[address] [place] [address]Dr. Andrade Christiano Monocytes/100 WBC (Bld) 13.5 % Critically high 1.7-12.0 [facility] Comment on above: Performed By: #### C BC ####[facility] Xviskvelrf[address] [place] [address]Dr. Andrade Alvarado NEUT # 1.5 103/ul Normal 1.4-6.5 [facility] Comment on above: Performed By: #### C BC ####[facility] [address]flwyse[address] [place] [address]Dr. Andrade Alvarado Neutrophils/100 WBC (Bld) 36.4 % Critically low 43.0-75.0 [facility] Comment on above: Performed By: #### C BC ####[facility] [address]gowcw[address] [place] [address]Dr. Andrade Alvarado Platelet mean volume (Bld) [Entitic vol] 8.9 fL Critically low 9.5-13.5 [facility] Comment on above: Performed By: #### C BC ####[facility] [address]wqz[address] [place] [address]Dr. Andrade Alvarado PLT 237 103/ul Normal 150-450 [facility] Comment on above: Performed By: #### C BC ####[facility] [address]zokngxa4[address] [place] [address]Dr. Andrade Alvarado RBC 3.59 106/ul Critically low 4.20-5.40 [facility] Comment on above: Performed By: #### C BC ####[facility] [address]qingrquj[address] [place] [address]Dr. Andrade Alvarado WBC 4.0 103/ul Normal 4.0-11.0 [facility] Comment on above: Performed By: #### C BC ####[facility] W[address]vkheocwv12[address] [place] [id number]. Andrade Alvarado CRPon 05-20-2022 CRP [Mass/Vol] mg/L Normal <=1.0 [facility] [facility] Comment on above: Performed By: #### C MP, CRP, TSH ####[facility] [address] [id number]. Andrade Alvarado PROF 14(COMP METB)on 022 Albumin [Mass/Vol] 4.2 g/dL Normal 3.4-5.0 [facility] Comment on above: Performed By: #### C MP, CRP, TSH #### [facility] [address] [place] [address] Dr. Andrade Alvarado Albumin/Globulin [Mass ratio] 1.3 {ratio} Normal [facility] Comment on above: Performed By: #### C MP, CRP, TSH #### [facility] [address] [address] [address] Andrade Alvarado ALP [Catalytic activity/Vol] 50 U/L Normal 46-116 [facility] Comment on above: Performed By: #### C MP, CRP, TSH #### [facility] [address] [place] [address] Dr. Andrade Alvarado ALT [Catalytic activity/Vol] 23 U/L Normal 14-59 [facility] Comment on above: Performed By: #### C MP, CRP, TSH #### [facility] [address] [place] [address] Dr. Andrade Alvarado Anion gap [Moles/Vol] 11.3 mmol/L Normal [facility] Comment on above: Performed By: #### C MP, CRP, TSH #### [facility] [address] [place] [address] Dr. Andrade Alvarado AST [Catalytic activity/Vol] 23 U/L Normal 15-37 [facility] Comment on above: Performed By: #### C MP, CRP, TSH #### [facility] [address] [place] [address] Dr. Andrade Alvarado Bilirubin [Mass/Vol] 0.5 mg/dL Normal 0.2-1.0 [facility] Comment on above: Performed By: #### C MP, CRP, TSH #### [facility] [address] [place] [address] Dr. Andrade Alvarado Calcium [Mass/Vol] 9.3 mg/dL Normal 8.5-10.1 [facility] Comment on above: Performed By: #### C MP, CRP, TSH #### [facility] [address] [place] [address] Dr. Andrade Alvarado Chloride [Moles/Vol] 104 mmol/L Normal 98-107 [facility] Comment on above: Performed By: #### C MP, CRP, TSH #### [facility] [address] [place] [address] Dr. Andrade Alvarado CO2 [Moles/Vol] 27.2 mmol/L Normal 21.0-32.0 [facility] Comment on above: Performed By: #### C MP, CRP, TSH #### [facility] [address] [address] [address] Andrade Alvarado Creatinine [Mass/Vol] 0.99 mg/dL Normal 0.55-1.02 [facility] Comment on above: Performed By: #### C MP, CRP, TSH #### [facility] [address] [place] [address] Dr. Andrade Alvarado EGFR-AF TANZANIAN >60 Normal >=60 [facility] Comment on above: Performed By: #### C MP, CRP, TSH #### [facility] [address] [address] [address] Andrade Alvarado EGFR-NON AF TANZANIAN 57 mL/min/1.73m2 Critically low >=60 [facility] Comment on above: Performed By: #### C MP, CRP, TSH #### [facility] [address] [place] [address] Dr. Andrade Alvarado Globulin (S) [Mass/Vol] 3.3 g/dL Normal [facility] Comment on above: Performed By: #### C MP, CRP, TSH #### [facility] [address] [place] [address] Dr. Andraed Alvarado Glucose [Mass/Vol] 97 mg/dL Normal 74-106 [facility] Comment on above: Performed By: #### C MP, CRP, TSH #### [facility] [address] [place] [address] Dr. Andrade Alvarado Potassium [Moles/Vol] 3.5 mmol/L Normal 3.5-5.1 [facility] Comment on above: Performed By: #### C MP, CRP, TSH #### [facility] [address] [address] [address] Andrade Alvarado Protein [Mass/Vol] 7.5 g/dL Normal 6.4-8.2 [facility] Comment on above: Performed By: #### C MP, CRP, TSH #### [facility] [address] [address] [address] Andrade Alvarado Sodium [Moles/Vol] 139 mmol/L Normal 136-145 [facility] Comment on above: Performed By: #### C MP, CRP, TSH #### [facility] [address] [address] [address] Andrade Alvarado Urea nitrogen [Mass/Vol] 22.0 mg/dL Critically high 7.0-18.0 [facility] Comment on above: Performed By: #### C MP, CRP, TSH #### [facility] [address] [address] [address] Andrade Alvarado Urea nitrogen/Creatinine [Mass ratio] 22.2 mg/mg Normal [facility] Comment on above: Performed By: #### C MP, CRP, TSH #### [facility] [address] [address] [address] Andrade Alvarado [facility] SED RATE 22 mm/hr Normal <=30 [facility] Comment on above: Performed By: #### S EDR ####[facility] [address] [address]Dr. Andrade Alvarado TSHon 05-20-2022 TSH 1.373 uIU/mL Normal 0.358-3.740 [facility] Comment on above: Performed By: #### C MP, CRP, TSH #### [facility] [address] [address] [address] Andrade Alvarado CBC AUTO DIFFon 02-16-2022 BASO # 0.0 103/ul Normal 0.0-0.1 [facility] Comment on above: Performed By: #### C BC ####[facility] [address] [address]Dr. Andrade Alvarado Basophils/100 WBC (Bld) 0.9 % Normal 0.2-2.0 [facility] Comment on above: Performed By: #### C BC ####[facility] P[address] [place], [place] [address]Dr. Andrade Alvarado EO # 0.1 103/ul Normal 0.0-0.7 [facility] Comment on above: Performed By: #### C BC ####[facility] [address]fr[address] [place], [place] [address]Dr. Kellengregory Alvarado Eosinophils/100 WBC (Bld) 2.3 % Normal 0.9-7.0 [facility] Comment on above: Performed By: #### C BC ####[facility] [address] [place], [place] [address]Dr. Kellengregory Alvarado Erythrocyte distribution width (RBC) [Ratio] 12.6 % Normal 11.0-15.0 [facility] Comment on above: Performed By: #### C BC ####[facility] [address] [place], [place] [address]Dr. Kellengregory Alvarado Hematocrit (Bld) [Volume fraction] 37.8 % Normal 36.0-48.0 [facility] Comment on above: Performed By: #### C BC ####[facility] Cs[address]al[address] [place], [place] [address]Dr. Andrade Alvarado Hemoglobin (Bld) [Mass/Vol] 12.3 g/dL Normal 12.0-16.0 [facility] Comment on above: Performed By: #### C BC ####[facility] [address] [place], [place] [address]Dr. Kellengregory Alvarado IG # 0.02 10e3/ul Normal 0.00-0.03 [facility] Comment on above: Performed By: #### C BC ####[facility] [address] [place], [place] [address]Dr. Kellengregory Alvarado IG % 0.5 % Normal 0.0-0.5 [facility] Comment on above: Performed By: #### C BC ####[facility] [address] [place], [place] [address]DrMehreen Alvarado LYMPH # 2.1 103/ul Normal 1.2-3.8 [facility] Comment on above: Performed By: #### C BC ####[facility] [address] [id number]. Andrade Christiano Lymphocytes/100 WBC (Bld) 48.3 % Normal 20.5-60.0 [facility] Comment on above: Performed By: #### C BC ####[facility] [address] [id number]. Andrade Alvarado MANUAL DIFF REQ NO Normal [facility] Comment on above: Performed By: #### C BC ####[facility] [address] [id number]. Andrade Alvarado MCH (RBC) [Entitic mass] 31.9 pg Normal 26.7-34.0 [facility] Comment on above: Performed By: #### C BC ####[facility] [address] [place], [place] [address]Dr. Andrade Alvarado MCHC (RBC) [Mass/Vol] 32.5 g/dL Normal 29.9-35.2 [facility] Comment on above: Performed By: #### C BC ####[facility] Aj[address] [place], [place] [address]Dr. Kellengregory Alvarado MCV (RBC) [Entitic vol] 97.9 fL Normal 81.0-99.0 [facility] Comment on above: Performed By: #### C BC ####[facility] [address] [address]Dr. Andrade Alvarado MONO # 0.5 103/ul Normal 0.3-0.8 [facility] Comment on above: Performed By: #### C BC ####[facility] [address] [place], [place] [address]Dr. Andrade Alvarado Monocytes/100 WBC (Bld) 11.2 % Normal 1.7-12.0 [facility] Comment on above: Performed By: #### C BC ####[facility] [address] [place], [place] [address]DrMehreen Alvarado NEUT # 1.6 103/ul Normal 1.4-6.5 [facility] Comment on above: Performed By: #### C BC ####[facility] [address] [id number]. Andrade Alvarado Neutrophils/100 WBC (Bld) 36.8 % Critically low 43.0-75.0 [facility] Comment on above: Performed By: #### C BC ####[facility] [address] [id number] Alvarado Platelet mean volume (Bld) [Entitic vol] 9.9 fL Normal 9.5-13.5 [facility] Comment on above: Performed By: #### C BC ####[facility] [address] [id number] Alvarado PLT 213 103/ul Normal 150-450 [facility] Comment on above: Performed By: #### C BC ####[facility] [address] [id number]. Andrade Alvarado RBC 3.86 106/ul Critically low 4.20-5.40 [facility] Comment on above: Performed By: #### C BC ####[facility] [address] [id number] Alvarado WBC 4.4 103/ul Normal 4.0-11.0 [facility] Comment on above: Performed By: #### C BC ####[facility] [address] [id number]. Andrade Alvarado PROF 14(COMP METB)on 022 Albumin [Mass/Vol] 4.2 g/dL Normal 3.4-5.0 [facility] Comment on above: Performed By: #### C MP #### [facility] [address] [address] [address] Andrade Alvarado Albumin/Globulin [Mass ratio] 1.3 {ratio} Normal [facility] Comment on above: Performed By: #### C MP #### [facility] [address] [id number] [address] Andrade Alvarado ALP [Catalytic activity/Vol] 61 U/L Normal 46-116 [facility] Comment on above: Performed By: #### C MP #### [facility] [address] [address] [address] Andrade Alvarado ALT [Catalytic activity/Vol] 23 U/L Normal 14-59 [facility] Comment on above: Performed By: #### C MP #### [facility] [address] [address] [address] Andrade Alvarado Anion gap [Moles/Vol] 15.5 mmol/L Normal [facility] Comment on above: Performed By: #### C MP #### [facility] [address] [address] [address] Andrade Alvarado AST [Catalytic activity/Vol] 20 U/L Normal 15-37 [facility] Comment on above: Performed By: #### C MP #### [facility] [address] [address] [address] Andrade Alvarado Bilirubin [Mass/Vol] 0.5 mg/dL Normal 0.2-1.0 [facility] Comment on above: Performed By: #### C MP #### [facility] [address] [address] [address] Andrade Alvarado Calcium [Mass/Vol] 9.1 mg/dL Normal 8.5-10.1 [facility] Comment on above: Performed By: #### C MP #### [facility] [address] [address] [address] Andrade Alvarado Chloride [Moles/Vol] 106 mmol/L Normal 98-107 [facility] Comment on above: Performed By: #### C MP #### [facility] [address] [address] [address] Andrade Alvarado CO2 [Moles/Vol] 25.6 mmol/L Normal 21.0-32.0 [facility] Comment on above: Performed By: #### C MP #### [facility] [address] [address] [address] Andrade Alvarado Creatinine [Mass/Vol] 0.97 mg/dL Normal 0.55-1.02 [facility] Comment on above: Performed By: #### C MP #### [facility] [address] [address] [address] Andrade Alvarado EGFR-AF TANZANIAN >60 Normal >=60 [facility] Comment on above: Performed By: #### C MP #### [facility] [address] [address] [address] Andrade Alvarado EGFR-NON AF TANZANIAN 58 mL/min/1.73m2 Critically low >=60 [facility] Comment on above: Performed By: #### C MP #### [facility] [address] [address] [address] Andrade Alvarado Globulin (S) [Mass/Vol] 3.2 g/dL Normal [facility] Comment on above: Performed By: #### C MP #### [facility] [address] [address] [address] Andrade Alvarado Glucose [Mass/Vol] 91 mg/dL Normal 74-106 [facility] Comment on above: Performed By: #### C MP #### [facility] [address] [address] [address] Andrade Alvarado Potassium [Moles/Vol] 4.1 mmol/L Normal 3.5-5.1 [facility] Comment on above: Performed By: #### C MP #### [facility] [address] [address] [address] Andrade Alvarado Protein [Mass/Vol] 7.4 g/dL Normal 6.4-8.2 [facility] Comment on above: Performed By: #### C MP #### [facility] [address] [address] [address] Andrade Alvarado Sodium [Moles/Vol] 143 mmol/L Normal 136-145 [facility] Comment on above: Performed By: #### C MP #### [facility] [address] [address] [address] Andrade Alvarado Urea nitrogen [Mass/Vol] 18.0 mg/dL Normal 7.0-18.0 [facility] Comment on above: Performed By: #### C MP #### [facility] [address] [place] [address] Dr. Andrade Alvarado Urea nitrogen/Creatinine [Mass ratio] 18.6 mg/mg Normal [facility] Comment on above: Performed By: #### C MP #### [facility] [address] [address] [address] Andrade Alvarado [facility] SED RATE 15 mm/hr Normal <=30 [facility] Comment on above: Performed By: #### S EDR #### [facility] [address] [address] [address] Andrade Alvarado KNEE LEFT 3 VWSon 04-25-2020 KNEE LEFT 3 [facility] Department of Radiology [address] [place] [phone] Patient Name: RADHA ZAIDI : 1960 Sex: F Age: Race: White Pt. 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 Electronically signed: Eliezer Cam. Transcribed by: [email or web address], User Resident: Electronically Signed by: ELIEZER CAM @ 04/25/2020 11:44 AM Normal [facility] Comment on above: Order Comment: Evalu ate TIBIA FIBULA LEFTon 03-27-20 20 TIBIA FIBULA LEFT [facility] of Radiology [address] [place] [id number] Patient Name: RADHA ZAIDI : 1960 Sex: F Age: Race: White Pt. Location: Patient Status: Ordered Date: 03/27/2020 8:05:00 AM Completed Date: 03/27/2020 08:35 AM Requesting Provider: CHARLI LUKE Attending Provider: Report Copy To: Signs & Symptoms: S82.832A Oth fracture of upper and lower end of left fibula, init I10 History: Angela Comments: , , , Ordering Provider - [...] healing Electronically signed: Crissy Dubon. Transcribed by: [email or web address], User Resident: Electronically Signed by: CRISSY DUBON @ 03/27/2020 09:11 AM Normal [facility] Comment on above: Order Comment: Evalu ate Operative Reporton 0 Operative Report MR#: [id number] [facility] Pt. Name: Radha Zaidi Room #: 0C [...] were bluntly retracted. We then used a [place] as well as a hemostat to debride [...] Paniagua MD Date Trans: 03/13/2020 02:26 A/bryson [id number] cc: John Ashby D.O. [address] [place] [phone] [facility] KNEE LEFT 1 OR 2 [facility] 03-12 KNEE LEFT 1 OR 2 [facility] Department of Radiology [address] [place] [phone] Patient Name: RADHA ZAIDI : 1960 [...] fracture. Electronically signed: Rahul James. Transcribed by: [email or web address], User Resident: Electronically Signed by: RAHUL JAMES @ 03/12/2020 03:20 PM Normal [facility] Comment on above: Order Comment: Evalu ate POC GLUCOSE LABon 03-12-2020 Glucose [Mass/Vol] 103 mg/dL High 70-100 [facility] Comment on above: Performed By: #### 8 5499 ####[facility] *MRSA/MSSA DNA NASALon 03-08 *MRSA/MSSA DNA NASAL Clinical Report: (D ) Specimen: NASAL SWAB Collected: 03/08/2020 14:02 Status: Final Last Updated: 03/09/2020 09:30 MSSA DNA (Final) Negative MRSA DNA (Final) Negative Normal [facility] Comment on above: Performed By: #### 3 1595 ####[facility] *SARS-CoV-2 COVID-19on 03-08 [id number] Not Detected Normal Not Detected [facility] Comment on above: Order Comment: The A ptima SARS-CoV-2 assay is a nucleic acid amplification test intended for the qualitative detection of RNA from SARS-CoV-2 isolated and purified from nasopharyngeal (CERTIFIED HEARING INSTRUMENT DISPENSER),oropharyngeal (OP), nasal swab, sputum, and bronchoalveolar lavage (BAL) specimens from patients with signs and symptoms of infection who are suspected of COVID-19. Results are for the identification of SARS-CoV-2 RNA. The SARS-CoV-2 RNA is generally detectable during the acute phase of infection. The Aptima SARS-CoV-2 Assay on the [employer] and [employer] Fusion system is intended for use by laboratory personnel specifically instructed and trained in the operation of the [employer]ar[employer] and [employer] system. The Aptima SARS-CoV-2 assay is [...] information. Performed By: #### 3 1792 #### [facility] [address] APTTon 03-08-2020 aPTT Coag (Bld) [Time] 26.9 s Normal 25.0-35.0 [facility] Comment on above: Result Comment: ALL RESULTS [...] THIS PURPOSE. Performed By: #### 5 6101, [address] ####[facility] BASIC METABOLIC PANELon 02-09 Calcium [Mass/Vol] 9.7 mg/dL Normal 8.6-10.3 [facility] Comment on above: Performed By: #### 0 0071 #### [facility] [address] [place] [address], [place] Chloride [Moles/Vol] 103 mmol/L Normal 98-107 [facility] Comment on above: Performed By: #### 0 0071 #### [facility] [address] [place] [address], [place] CO2 [Moles/Vol] 31 mmol/L Normal 21-31 [facility] Comment on above: Performed By: #### 0 0071 #### [facility] [address] [place] [address], [place] Creatinine [Mass/Vol] 0.87 mg/dL Normal 0.60-1.20 [facility] Comment on above: Performed By: #### 0 0071 #### [facility] [address] [place] [address], [place] GFR/1.73 sq M predicted among blacks MDRD (S/P/Bld) [Vol rate/Area] mL/min/{1.73_m2} Normal >60 [facility] Comment on above: Performed By: #### 0 0071 #### [facility] [address] [place] [address], [place] GFR/1.73 sq M predicted among non-blacks MDRD (S/P/Bld) [Vol rate/Area] mL/min/{1.73_m2} Normal >60 [facility] Comment on above: Performed By: #### 0 0071 #### [facility] [address] [place] [address], [place] Glucose [Mass/Vol] 106 mg/dL High 70-100 [facility] Comment on above: Performed By: #### 0 0071 #### [facility] [address] [place] [address], [place] Potassium [Moles/Vol] 4.3 mmol/L Normal 3.5-5.1 [facility] Comment on above: Performed By: #### 0 0071 #### [facility] [address] [facility]. [address] Sodium [Moles/Vol] 141 mmol/L Normal 136-145 [facility] Comment on above: Performed By: #### 0 0071 #### [facility] [address] [facility]. [address] Urea nitrogen [Mass/Vol] 14 mg/dL Normal 7-25 [facility] Comment on above: Performed By: #### 0 0071 #### [facility] [address] CBC W/DIFFon 03-08-2020 ABS BASOPHILS 0.1 10*3/uL Normal 0.0-0.2 [facility] Comment on above: Performed By: #### 5 3 ####[facility] ABS IMM GRANS 0.0 10*3/uL Normal 0.0-0.2 [facility] Comment on above: Performed By: #### 5 102 ####[facility] ABS NEUTROPHILS 3.4 10*3/uL Normal 1.6-7.6 [facility] Comment on above: Performed By: #### 5 3 ####[facility] Basophils/100 WBC (Bld) 0.8 % Normal 0.0-1.0 [facility] Comment on above: Performed By: #### 5 102 ####[facility] Eosinophils (Bld) [#/Vol] 0.7 10*3/uL High 0.0-0.5 [facility] Comment on above: Performed By: #### 5 3 ####[facility] Eosinophils/100 WBC (Bld) 9.5 % High 0.0-6.0 [facility] Comment on above: Performed By: #### 5 3 ####[facility] Erythrocyte distribution width (RBC) [Ratio] 13.6 % Normal 11.5-15.0 [facility] Comment on above: Performed By: #### 3 ####[facility] Hematocrit (Bld) [Volume fraction] 42.5 % Normal 36.0-45.0 [facility] Comment on above: Performed By: #### 102 ####[facility] Hemoglobin (Bld) [Mass/Vol] 13.7 g/dL Normal 12.0-15.0 [facility] Comment on above: Performed By: #### 102 ####[facility] IMMATURE GRANS 0.3 % Normal 0.0-1.0 [facility] Comment on above: Performed By: #### 3 ####[facility] Lymphocytes (Bld) [#/Vol] 2.7 10*3/uL Normal 1.2-4.0 [facility] Comment on above: Performed By: #### 5 3 ####[facility] [place] [address] Lymphocytes/100 WBC (Bld) 35.1 % Normal 20.0-45.0 [facility] Comment on above: Performed By: #### 3 ####[facility] MCH (RBC) [Entitic mass] 31.2 pg Normal 27.0-33.0 [facility] Comment on above: Performed By: #### 3 ####[facility] MCHC (RBC) [Mass/Vol] 32.2 g/dL Normal 32.0-35.0 [facility] Comment on above: Performed By: #### 102 ####[facility] MCV (RBC) [Entitic vol] 96.8 fL Normal 82.0-98.0 [facility] Comment on above: Performed By: #### 102 ####[facility] Monocytes (Bld) [#/Vol] 0.8 10*3/uL Normal 0.1-1.0 [facility] Comment on above: Performed By: #### 102 ####[facility] MONOS 9.8 % Normal 5.0-12.0 [facility] Comment on above: Performed By: #### 3 ####[facility] Neutrophils/100 WBC (Bld) 44.5 % Normal 40.0-72.0 [facility] Comment on above: Performed By: #### 102 ####[facility] Nucleated RBC/100 WBC (Bld) [Ratio] 0 % Normal 0-0 [facility] Comment on above: Performed By: #### 102 ####[facility] PLAT CNT 230 10*3/uL Normal 150-400 [facility] Comment on above: Performed By: #### 5 0103 ####[facility] RBC (Bld) [#/Vol] 4.39 10*6/uL Normal 3.80-5.00 [facility] Comment on above: Performed By: #### 5 0103 ####[facility]3000 [facility] [place] [place] [address], [facility] WBC (Bld) [#/Vol] 7.72 10*3/uL Normal 4.00-10.60 [facility] Comment on above: Performed By: #### 5 0103 ####[facility].[address] PROTHROMBIN TIMEon 0 INR Coag (PPP) [Relative time] 0.99 {INR} Normal 0.91-1.16 [facility] Comment on above: Result Comment: ACCC P [...] CHEST 1995;108:231S-246S. Performed By: #### 5 6101, 07387 #### [facility] [address] [place] [address], [place] PT Coag (PPP) [Time] 13.1 s Normal 12.3-14.8 [facility] Comment on above: Result Comment: ALL RESULTS MUST BE INTERPRETED WITH RESPECT TO BLOOD DRAWING ARTIFACT OR DILUTION ERROR OF ANTICOAGULANT AT THE TIME OF SAMPLING. Performed By: #### 5 6101, 71140 #### [facility] [address] [place] [address], [place] ALBUMIN BLOODon 02-04-2020 Albumin [Mass/Vol] 4.5 g/dL Normal 3.5-5.7 [facility] Comment on above: Performed By: #### 3 0728, 47168, 90799, 26229, 23548 #### [facility] [address] [place] [address], [place] BASIC METABOLIC PANELon 01-09 Calcium [Mass/Vol] 9.5 mg/dL Normal 8.6-10.3 [facility] Comment on above: Performed By: #### 3 0728, 19098, 84692, 63231, 72025 #### [facility] [address] [place] [address], [place] Chloride [Moles/Vol] 105 mmol/L Normal 98-107 [facility] Comment on above: Performed By: #### 3 0728, 60557, 21693, 88941, 59190 #### [facility] [address] [place] [address], [place] CO2 [Moles/Vol] 27 mmol/L Normal 21-31 [facility] Comment on above: Performed By: #### 3 0728, 38478, 33203, 69431, 67676 #### [facility] [address] [place] [address], [place] Creatinine [Mass/Vol] 0.81 mg/dL Normal 0.60-1.20 [facility] Comment on above: Performed By: #### 3 0728, 54223, 39607, 61365, 95390 #### [facility] [address] [place] [address], [place] GFR/1.73 sq M predicted among blacks MDRD (S/P/Bld) [Vol rate/Area] mL/min/{1.73_m2} Normal >60 [facility] Comment on above: Performed By: #### 3 0728, 55198, 62139, 23178, 39816 #### [facility] [address] [place] [address], [place] GFR/1.73 sq M predicted among non-blacks MDRD (S/P/Bld) [Vol rate/Area] mL/min/{1.73_m2} Normal >60 [facility] Comment on above: Performed By: #### 3 0728, 69465, 10123, 97519, 12567 #### [facility] [address] [place] [address], [place] Glucose [Mass/Vol] 115 mg/dL High 70-100 [facility] Comment on above: Performed By: #### 3 0728, 88445, 26912, 03930, 47982 #### [facility] [address] [place] [address], [place] Potassium [Moles/Vol] 3.9 mmol/L Normal 3.5-5.1 [facility] Comment on above: Performed By: #### 3 0728, 35812, 96594, 85146, 99593 #### [facility] [address] [place] [address], [place] Sodium [Moles/Vol] 140 mmol/L Normal 136-145 [facility] Comment on above: Performed By: #### 3 0728, 22437, 34736, 87796, 30625 #### [facility] [address] [place] [address], [place] Urea nitrogen [Mass/Vol] 20 mg/dL Normal 7-25 [facility] Comment on above: Performed By: #### 3 0728, 66206, 64253, 17889, 48161 #### [facility] [address] [facility]. [address] PREALBUMINon 02-04-2020 Prealbumin [Mass/Vol] 24.0 mg/dL Normal 17.0-34.0 [facility] Comment on above: Performed By: #### 3 0728, 93681, 77778, 47746, 70059 #### [facility] [address] [place], [place] [id number] [place] [address] TIBIA FIBULA LEFTon 02-04-20 20 TIBIA FIBULA LEFT [facility] Department of Radiology [address] [place] [id number] Patient Name: RADHA ZAIDI : 1960 Sex: F Age: Race: White Pt. Location: Patient Status: Ordered Date: 02/04/2020 9:35:00 AM Completed Date: 02/04/2020 09:55 AM Requesting Provider: MARYURI ALEXANDER Attending Provider: Report Copy To: Signs & Symptoms: S82.832A [facility] fracture of upper and lower end of [...] indicated. Electronically signed: Eliezer Randolph. Transcribed by: [email or web address], User Resident: Electronically Signed by: ELIEZER RANDOLPH @ 02/04/2020 10:34 AM Normal [facility] TRANSFERRINon 02-04-2020 Transferrin [Mass/Vol] 270 mg/dL Normal 203-362 [facility] Comment on above: Performed By: #### 3 0728, 62366, 95793, 43812, 67281 #### [facility] [address] [facility] [place] [address], [facility] V[facility] 25-HYDROXYon 02-03 VITAMIN D 25-OH 38.5 ng/mL Normal 30.0-80.0 [facility] Comment on above: Result Comment: >80. 0 Toxicity possible Performed By: #### 3 0728, 78419, 76105, 89577, 61968 #### [facility] [address] 07-06-2018 L - -------- Specimen: [id number] Received: 07/06/18 Status: JONI Landeros Num: [id number] Spec Type: Surgical Subm Dr: Tash Resendez MD Tissues: A Finger - Amputation, Non-traumatic (LT SMALL FINGER) Procedures: HE Stain/2, Gross/Micro L4, Decal -------- Patient Age/Sex Location Account Attending Physician -------- Radha Zaidi 58/F [place] [id number] Tash Resendez MD -------- SPEC NUM: [id number] RECD: 07/06/18 STATUS: JONI REQ NUM: [id number] RUSS: 07/06/18- SUBM DR: Tash Resendez MD ENTERED: 07/06/[address] [facility] [address]: SPEC TYPE: Surgical DEPT: S ORDERED: [...] reveals yellow, viable appearing bony cut surfaces. [employer] sections are submitted in two cassettes, decal. (ENRIKE/NAA/lina) -------- Specimen: [id number] Received: 07/06/18 Status: JONI Leti Num: [id number] Spec Type: Surgical Subm Dr: Tash Resendez MD Tissues: A Finger - Amputation, Non-traumatic (LT SMALL FINGER) Procedures: HE Stain/2, Gross/Micro L4, Decal -------- Patient: Radha Zaidi [id number] (Continued) -------- Specimen: [id number] Received: 07/06/18 (Continued) Signed (signature on file) Harsh Jo MD 08/14/18 1503 -------- Specimen: Received: 07/06/18 Status: JONI Leti Num: [id number] Spec Type: Surgical Subm Dr: Tash Resendez MD Tissues: A Finger - Amputation, Non-traumatic (LT SMALL FINGER) Procedures: VIRAL Stain/2, Gross/Micro L4, Decal -------- Patient: Radha Zaidi [id number] (Continued) -------- Specimen: Received: 07/06/18 (Continued) Microscopic Two glass slides with H E stained material have been examined. The microscopic findings support the above pathologic diagnosis. [id number], [id number] A. - - LT SMALL FINGER -------- -------- Specimen: [id number] Received: 07/06/18 Status: JONI Landeros Num: [id number] Spec Type: Surgical Subm Dr: Tash Resendez MD Tissues: A Finger - Amputation, Non-traumatic (LT SMALL FINGER) Procedures: HE Stain/2, Gross/Micro L4, Nitesh -------- Patient: Radha Zaidi [id number] (Continued) -------- Signed (signature on file) Harsh Jo MD 08/14/18 1503 Normal [facility] FLUORO FOR SURGICAL PROCEDUR ESon 10-20-2017 FLUORO FOR SURGICAL PROCEDURES Exam: FLUORO FOR SURGICAL PROCEDURESHistory: ACDF Fusion Findings: Fluoroscopy time was 70 seconds A total of 19 fluoroscopic images were obtained by Dr. Cheng during the anterior cervical discectomy in the lower cervical spine.IMPRESSION: Impression: Fluoroscopic assistance provided for operative guidance.Interpreted by:DIANA Lealigned by:Eugene Cancino MD10/20/17inal result Normal [facility] Basic Metabolic Panelon Anion gap 15 mmol/L Critically high 7-13 [facility] Calcium 9.6 mg/dL Normal 8.6-10.2 [facility] Chloride 102 mmol/L Normal 98-107 [facility] CO2 23 mmol/L Normal 22-29 [facility] Creatinine 0.54 mg/dL Normal 0.50-0.90 [facility] eGFR (black) mL/min/{1.73_m2} Normal >60 [facility] Comment on above: Result Comment: >60 mL/min/1.73m2 EGFR, calc. for ages 18 and older using theMDRD formula (not corrected for weight), is valid for stablerenal function. eGFR (MDRD) mL/min/{1.73_m2} Normal >60 [facility] Comment on above: Result Comment: >60 mL/min/1.73m2 EGFR, calc. for ages 18 and older using theMDRD formula (not corrected for weight), is valid for stablerenal function. Glucose mass conc 97 mg/dL Normal 74-109 [facility] Potassium molar conc 4.8 mmol/L Normal 3.5-5.1 [facility] Sodium 140 mmol/L Normal 132-144 [facility] Urea nitrogen 14 mg/dL Normal 6-20 [facility] CBC With Platelet No Differe ntialon 10-13-2017 Erythrocyte distribution width Auto Ratio (RBC) 13.3 % Normal 11.5-14.5 [facility] Erythrocytes (RBC) 4.96 10*6/uL Normal 4.20-5.40 [facility] Hematocrit (HCT) 47.1 % Critically high 37.0-47.0 [facility] Hemoglobin mass conc (Bld) 16.2 g/dL Critically high 12.0-16.0 [facility] MCH 32.7 pg Critically high 27.0-31.3 [facility] MCHC mass conc (RBC) 34.4 % Normal 33.0-37.0 [facility] MCV 95.0 fL Normal 82.0-100.0 [facility] Platelets 223 10*3/uL Normal 130-400 [facility] WBC (Leukocytes) 6.2 10*3/uL Normal 4.8-10.8 [facility] Culture, MRSA Screenon 10-13 Culture, MRSA Screen ORDERED BY: VITO STALLWORTH: Nares Nose COLLECTED: 10/13/17 13:18ANTIBIOTICS AT RUSS.: RECEIVED : 10/13/17 13:18Culture, MRSA Screen FINAL 10/14/17 13:59 No MRSA isolated Normal [facility] Partial Thromboplastin Timeo n 10-13-2017 aPTT 22.9 s Normal 21.6-35.4 [facility] Comment on above: Result Comment: Hepa rin Therapeutic Range: 38.8 - 54.6 seconds. Prothrombin Timeon 8 INR Coag RelTime (PPP) 1.0 {INR} Normal [facility] Comment on above: Result Comment: Kashif mmended [...] Coag time (PPP) 10.0 s Normal 8.1-13.7 [facility] Type and Screen Capture 3 sc rn cellon 10-13-2017 Bilirubin (total) PATIENT: DYAN MUNOZ LOC: [facility] BILL# : [id number] : 1960 SEX: FORDERED BY: BASIM CHENG ORDERED : 10/13/2017 12:41 COLLECTED: 10/13/2017 13:24ORDER : [id number] RECEIVED : 10/13/2017 13:24 T EST NAME RESULT UNITS RANGES ABN FL STABORH Capture A POS FAntibody 3 Cell Scrn Captu NEG F Normal [facility] Urinalysis, reflex to cultur gabbie 10-13-2017 Bilirubin Ql (U) Negative Normal Negative [facility] Urine Reflexed to Culture Not Indicated Normal [facility] Urine, clarity Clear Normal Clear [facility] Urine, color Yellow Normal Straw/[place] [facility] Urine, glucose presence Negative Normal Negative [facility] Urine, hemoglobin presence Negative Normal Negative [facility] Urine, ketones presence Negative Normal Negative [facility] Urine, leukocyte esterase presence Negative Normal Negative [facility] Urine, nitrite presence Negative Normal Negative [facility] Urine, pH 5.5 [pH] Normal 5.0-9.0 [facility] Urine, protein presence Negative Normal Negative [facility] Urine, specific gravity 1.018 Normal 1.005-1.03 [facility] Urine, urobilinogen 0.2 {Rajwinder'U}/dL Normal < 2.0 [facility] Vital Signs Date Time Vital Sign Value Performing Clinician Facility 02-08-2024 15:40-0500 Body height 162.6 cm Jordan Yuan DO Work Phone: [facility] 08-18-2023 15:40-0500 Body mass index (BMI) [Ratio] 28.15 kg/m2 Jordan Brown DO Work Phone: [facility] 08-18-2023 15:40-0500 Body temperature 97.11 [degF] Jordan Yuan DO Work Phone: [facility] 08-18-2023 15:40-0500 Body weight 74.39 kg Jordan Brown DO Work Phone: [facility] 08-17-2023 15:00-0500 Body height 166.37 cm John Ball Other [employer] [facility] [employer] Other 08-17-2023 15:00-0500 Body mass index (BMI) [Ratio] 28.12 kg/m2 John Ball Other [employer] Other 08-17-2023 15:00-0500 Body weight 77.84 kg John Ball Other [employer] Other 08-17-2023 15:00-0500 Diastolic blood pressure 79 mm[Hg] John Ball Other [employer] Other 08-17-2023 15:00-0500 Respiratory rate 12 /min John Ball Other [employer] Other 08-17-2023 15:00-0500 Systolic blood pressure 126 mm[Hg] John Ball Other [facility] [employer] Other 04-07-2023 14:00-0400 Body temperature 97.52 [degF] Jordan Yuan [facility] 04-07-2023 14:00-0400 Diastolic blood pressure 63 mm[Hg] Jordan Yuan [facility] 04-07-2023 14:00-0400 Heart rate 88 /min Jordan Yuan [facility] 04-07-2023 14:00-0400 Mean blood pressure 76 mm[Hg] Jordan Yuan [facility] 04-07-2023 14:00-0400 SaO2% (BldA) [Mass fraction] 94 % Jordan Yuan [facility] 04-07-2023 14:00-0400 Systolic blood pressure 101 mm[Hg] Jordan Yuan [facility] 04-07-2023 08:47-0400 Diastolic blood pressure 75 mm[Hg] Jordan Yuna [facility] 04-07-2023 08:47-0400 Systolic blood pressure 125 mm[Hg] Jordan Yuan [facility] 04-07-2023 07:45-0400 Blood Pressure Location Jordan Yuan [facility] 04-07-2023 07:45-0400 Body temperature 97.88 [degF] Jordan Yuan [facility] 04-07-2023 07:45-0400 Diastolic blood pressure 75 mm[Hg] Jordan Yuan [facility] 04-07-2023 07:45-0400 Heart rate 72 /min Jordan Yuan [facility] 04-07-2023 07:45-0400 Hourly [address] Jordan Yuan [facility] 04-07-2023 07:45-0400 Mean blood pressure 92 mm[Hg] Jordan Yuan [facility] 04-07-2023 07:45-0400 Promise to Return Jordan Yuan [facility] 04-07-2023 07:45-0400 Respiratory rate 16 /min Jordan Yuan [facility] 04-07-2023 07:45-0400 SaO2% (BldA) [Mass fraction] 96 % Jordan Yuan [facility] 04-07-2023 07:45-0400 Systolic blood pressure 125 mm[Hg] Jordan Yuan [facility] 04-07-2023 06:17-04[address] Jordan Yuan [facility] 04-07-2023 06:17-0400 Promise to Return Jordan Yuan [facility] 04-07-2023 05:05-[address] Jordan Yuan [facility] 04-07-2023 05:05-0400 Promise to Return Jordan Yuan [facility] 04-06-2023 22:20-0400 Blood Pressure Location Jordan Yuan [facility] 04-06-2023 22:20-0400 Body temperature 98.24 [degF] Jordan Yuan [facility] 04-06-2023 22:20-0400 Heart rate 74 /min Jordan Yuan [facility] 04-06-2023 22:20-0400 Mean blood pressure 78 mm[Hg] Jordan Yuan [facility] 04-06-2023 22:20-0400 Respiratory rate 16 /min Jordan Yuan [facility] 04-06-2023 22:20-0400 SaO2% (BldA) [Mass fraction] 93 % Jordan Yuan [facility] 04-06-2023 20:10-0400 Heart rate 65 /min Jordan Brown [facility] 04-06-2023 20:01-0400 Body temperature 97.34 [degF] Jordan Brown [facility] 04-06-2023 20:00-0400 Mean blood pressure 86 mm[Hg] Jordan Brown [facility] 04-06-2023 16:17-0400 Mean blood pressure 97 mm[Hg] Jordan Brown [facility] 04-06-2023 16:16-0400 Body temperature 97.52 [degF] Jordan Yuan [facility] 04-06-2023 13:49-0400 Mean blood pressure 88 mm[Hg] Jordan Brown [facility] 04-06-2023 12:45-0400 Respiratory rate 13 /min Jordan Brown [facility] 04-06-2023 12:35-0400 Respiratory rate 10 /min Jordan Brown [facility] 04-06-2023 12:20-0400 Respiratory rate 17 /min Jordan Brown [facility] 04-06-2023 11:37-0400 Body temperature 96.98 [degF] Jordan Brown [facility] 04-06-2023 06:39-0400 Heart rate 68 /min Jordan Brown [facility] 03-24-2023 14:52-0400 Diastolic blood pressure 76 mm[Hg] Jordan Brown [facility] 03-24-2023 14:52-0400 Heart rate 67 /min Jordan Brown [facility] 03-24-2023 14:52-0400 Mean blood pressure 99 mm[Hg] Jordan Brown [facility] 03-24-2023 14:52-0400 Systolic blood pressure 144 mm[Hg] Jordan Yuan [facility] 03-24-2023 14:52-0400 Heart rate 68 /min Jordan Yuan [facility] 03-24-2023 14:52-0400 SaO2% (BldA) [Mass fraction] 99 % Jordan Yuan [facility] 03-24-2023 14:52-0400 Diastolic blood pressure 75 mm[Hg] Jordan Yuan [facility] 03-24-2023 14:52-0400 Mean blood pressure 93 mm[Hg] Jordan Yuan [facility] 03-24-2023 14:52-0400 Systolic blood pressure 128 mm[Hg] Jordan Yuan [facility] 03-24-2023 14:51-0400 Respiratory rate 16 /min Jordan Yuan [facility] 01-10-2023 15:00-0400 Body height 166.37 cm John Ball Other [facility] [employer] Other 01-10-2023 15:00-0400 Body mass index (BMI) [Ratio] 27.04 kg/m2 John Ball Other [employer] Other 01-10-2023 15:00-0400 Body weight 74.84 kg John Ball Other [employer] Other 01-10-2023 15:00-0400 Diastolic blood pressure 86 mm[Hg] John Ball Other [employer] Other 01-10-2023 15:00-0400 Respiratory rate 12 /min John Ball Other [employer] Other 01-10-2023 15:00-0400 Systolic blood pressure 124 mm[Hg] John Ball Other [employer] Other 12-09-2022 09:00-0400 Body height 166.37 cm John Ball Other [employer] Other 12-09-2022 09:00-0400 Body mass index (BMI) [Ratio] 27.33 kg/m2 John Ball Other [employer] Other 12-09-2022 09:00-0400 Body weight 75.66 kg John Ball Other [employer] Other 12-09-2022 09:00-0400 Diastolic blood pressure 71 mm[Hg] John Ball Other [employer] Other 12-09-2022 09:00-0400 Respiratory rate 12 /min John Ball Other [employer] Other 12-09-2022 09:00-0400 Systolic blood pressure 111 mm[Hg] John Ball Other [employer] Other 11-09-2022 15:00-0400 Body height 166.37 cm John Ball Other [employer] Other 11-09-2022 15:00-0400 Body mass index (BMI) [Ratio] 27.36 kg/m2 John Ball Other [employer] Other 11-09-2022 15:00-0400 Body weight 75.75 kg John Ball Other [employer] Other 11-09-2022 15:00-0400 Diastolic blood pressure 80 mm[Hg] John Ball Other [employer] Other 11-09-2022 15:00-0400 Respiratory rate 12 /min John Ball Other [employer] Other 11-09-2022 15:00-0400 Systolic blood pressure 135 mm[Hg] John Ball Other [employer] Other 07-26-2022 16:30-0500 Body height 166.37 cm John Ball Other [employer] Other 07-26-2022 16:30-0500 Body mass index (BMI) [Ratio] 26.28 kg/m2 John Ball Other [employer] Other 07-26-2022 16:30-0500 Body weight 72.76 kg John Ball Other [employer] Other 07-26-2022 16:30-0500 Diastolic blood pressure 78 mm[Hg] John Ball Other [employer] Other 07-26-2022 16:30-0500 Respiratory rate 12 /min John Ball Other [employer] Other 07-26-2022 16:30-0500 Systolic blood pressure 122 mm[Hg] John Ball Other [employer] Other Encounters Encounter Date Encounter Type Care Provider Facility Start: 08-18-2023 End: 08-18-2023 ambulatory JORDAN YUAN Not Available Start: 08-18-2023 End: 08-18-2023 Patient encounter procedure Jordan Yuan DO Work Phone: [facility] Comment on above: Right shoulder pain, unspecified chronicity (Primary Dx) Start: 08-18-2023 Chart abstracting Jordan do DO Work Phone: [facility] Start: 08-17-2023 End: 08-17-2023 ambulatory John Ashby Other [employer] Other Start: 08-17-2023 Encounter for genera l adult medical examination without abnormal findings John Ashby [facility] Start: 08-17-2023 Periodic preventive med est patient 40-64yrs John Ashby [facility] Start: 07-21-2023 End: 07-21-2023 ambulatory JORDAN YUAN Not Available Start: 07-05-2023 End: 07-05-2023 ambulatory JORDAN YUAN Not Available Start: 06-28-2023 End: 06-28-2023 ambulatory John Ashby Other [employer] Other Start: 06-28-2023 Office outpatient vi sit 15 minutes John Ashby [facility] Start: 05-24-2023 End: 05-24-2023 ambulatory JORDAN YUAN Not Available Start: 05-06-2023 End: 05-06-2023 ambulatory John Ashby Other [employer] Other Start: 05-06-2023 Telephone encounter John Symone SIMON [facility] Start: 04-26-2023 End: 04-26-2023 ambulatory John Ashby Other [employer] Other Start: 04-26-2023 Telephone encounter John Symone SIMON [facility] Start: 04-06-2023 End: 04-07-2023 ambulatory Jordan Yuan [place] [place] Start: 04-06-2023 End: 04-07-2023 Admission to same day surgery center Jordan Yuan [facility] Start: 03-31-2023 End: 03-31-2023 ambulatory John Ashby Other [facility] Other Start: 03-31-2023 Telephone encounter John SIMON [facility] Start: 03-26-2023 End: 03-26-2023 ambulatory John Ball Other [employer] Other Start: 03-26-2023 Telephone encounter John Ashby [facility] Start: 03-24-2023 End: 03-25-2023 ambulatory Jordan Sue Anderson [place] [place] Start: 03-24-2023 End: 03-24-2023 Patient encounter procedure Jordan Yuan [facility] Start: 03-21-2023 End: 03-21-2023 ambulatory John Ball Other [employer] Other Start: 03-21-2023 Telephone encounter John Ashby [facility] Start: 01-12-2023 End: 01-12-2023 ambulatory John Ball Other [employer] Other Start: 01-12-2023 Telephone encounter John Ball [facility] Start: 01-10-2023 End: 01-10-2023 ambulatory John Ball Other [employer] Other Start: 01-10-2023 Office outpatient vi sit 15 minutes John Ball [facility] Start: 12-14-2022 End: 12-14-2022 ambulatory John Ball Other [facility] Other Start: 12-14-2022 Telephone encounter John Ball [facility] Start: 12-10-2022 End: 12-10-2022 ambulatory John Ball Other [facility] Other Start: 12-10-2022 Telephone encounter John Ball [facility] Start: 12-09-2022 End: 12-09-2022 ambulatory John Ball Other [facility] Other Start: 12-09-2022 Office outpatient vi sit 15 minutes John Ball [facility] Start: 11-09-2022 End: 11-09-2022 ambulatory John Ball Other [facility] Other Start: 11-09-2022 Office outpatient vi sit 15 minutes John Symone [facility] Start: 10-13-2022 ambulatory NARENDRANATH LAKSHMIPATHY . Facility:[facility] Start: 10-07-2022 End: 10-08-2022 ambulatory NARENDRANATH LAKSHMIPATHY . Facility:[facility] Start: 09-22-2022 End: 09-22-2022 ambulatory John Ashby Other [facility] Other Start: 09-22-2022 Telephone encounter John Ashby [facility] Start: 09-16-2022 End: 09-17-[address] JOHN ASHBY Facility:[facility] Start: 08-14-2022 End: 08-14-2022 ambulatory John Ashby Other [facility] Other Start: 08-14-2022 Telephone encounter John Ashby [facility] Start: 07-26-2022 End: 07-26-2022 ambulatory John Ashby Other [facility] Other Start: 07-26-2022 Office outpatient vi sit 15 minutes John Ashby [facility] Start: 07-22-2022 Annual wellness visit John Ashby Other [facility] Other Start: 07-22-2022 Patient encounter procedure John Ashby Other [facility] Other Start: 07-09-2022 End: 07-10-[address] JOHN ASHBY Facility:[facility] Start: 06-21-2022 Adult health examination John Ashby Other [facility] Other Start: 06-21-2022 Gynecological examination normal John Ashby Other [facility] Other Start: 2022 End: 06-09-[address] JOHN ASHBY Facility:[facility] Start: 06-01-2022 End: 06-01-[address] JOHN ASHBY Facility:[facility] Start: 05-24-2022 Encounter for genera l adult medical examination without abnormal findings DR JOHN ASHBY [facility] Start: 05-20-2022 End: 05-21-[address] JOHN SAHBY Facility:[facility] Start: 05-20-2022 End: 05-21-2022 Encounter for [...] End: 03-13-2020 Patient encounter procedure MARYURI ALEXANDER Facility:[facility] Start: 03-05-2020 End: 03-20-2020 Patient encounter procedure MARYURI ALEXANDER Facility:[facility] Start: 10-20-2017 End: 10-21-2017 [facility] [place] Start: 10-13-2017 End: 10-18-2017 Ambulatory BARRY H. BASIM [facility] [place] Procedures Date Procedure Procedure Detail Performing Clinician Start: 08-18-2023 Radex shoulder compl ete minimum 2 views Jordan Yuan DO Work Phone: Start: 04-06-2023 Total shoulder replacement Jordan Yuan Start: 03-12-2020 ANESTH KNEE AREA SURGERY TASH EVANS Start: 03-12-2020 ANTIONE BONE 20 SQ CM/< NAB IL SENAIT Start: 03-12-2020 TREATMENT OF FIBULA FRACTURE MARYURI [...] except thumb Jordan Yuan Cervical laminectomy Jordan Spencer loan Excision of lumbar intervertebral disc Jordan Anderson ft (qualifier value) Jordan cates Open reduction of fr acture with internal fixation Jordan Yuan Removal of lung pneumonectomy Jordan Yuan Screening for malign ant neoplasm of breast John Ashby Other Screening mammography Herbert Ashby Other Plan of Treatment Date Care Activity Detail Author Start: 10-04-2023 End: 10-04-2023 Patient encounter procedure 10/04/2023 3:45 PM EDT Office Visit [facility] [address] [place] [phone] Jordan Yuan, [address] [place] [address] [facility] Start: 08-18-2023 End: 08-18-2023 Patient encounter procedure 08/18/2023 3:45 PM EST Office Visit [facility] [address] [place] [address] Jordan Yuan DO [address] [place] [address] [facility] Start: 08-18-2023 End: 08-18-2024 C reactive protein [Mass/volume] in Serum or Plasma C-reactive protein Lab Routine Right shoulder pain, unspecified chronicity Expected: 08/18/2023 (Approximate), Expires: 08/18/2024 [facility] Comment on above: Expected: 08/18/2023 (Approximate), Expires: 08/18/2024 Start: 08-18-2023 End: 08-18-2024 CBC W Auto Differential panel - Blood CBC auto differential Lab Routine Right shoulder pain, unspecified chronicity Expected: 08/18/2023 (Approximate), Expires: 08/18/2024 [facility] Work Phone: Comment on above: Expected: 08/18/2023 (Approximate), Expires: 08/18/2024 Start: 08-18-2023 End: 08-18-2024 Erythrocyte sedimentation rate Sedimentation rate, automated Lab Routine Right shoulder pain, unspecified chronicity Expected: 08/18/2023 (Approximate), Expires: 08/18/2024 [facility] Comment on above: Expected: 08/18/2023 (Approximate), Expires: 08/18/2024 Start: 08-18-2023 End: 08-18-2024 Interleukin-6 Interleukin-6 Lab Routine Right shoulder pain, unspecified chronicity Expected: 08/18/2023 (Approximate), Expires: 08/18/2024 [facility] Comment on above: Expected: 08/18/2023 (Approximate), Expires: 08/18/2024 Immunizations Immunization Date Immunization Notes Care Provider Angélica kwon 03-22-2012 tetanus and diphther ia toxoids, adsorbed, preservative free, for adult use (5 Lf of tetanus toxoid and 2 Lf of diphtheria toxoid) John Ashby Other [facility] Other Payers Date Payer Category Payer [facility] [id number] 2021 Unknown 2020 Medicare MEDICARE MEDICAR E PART B [id number] 2020-[place] [address] Medicare [id number] 2017 Unknown [id number] 1960 Unknown [id number] 2.16.840.1.680457.3.579.2. 647 1960 Unknown [id number] 2.16.840.1.333299.3.579.2. 647 1960 Unknown [id number] 2.16.840.1.726164.3.579.2. 593 1960 Unknown [id number] 2.16.840.1.612226.3.579.2. 593 1960 Unknown [id number] 2.16.840.1.235363.3.579.2. 593 1960 Unknown [id number] 2.16.840.1.464817.3.579.2. 593 1960 Unknown [id number] 2.16.840.1.466297.3.579.2. 593 1960 Unknown [id number] 2.16.840.1.255576.3.579.2. 593 1960 Unknown [id number] 2.16.840.1.980587.3.579.2. 593 1960 Unknown [id number] 2.16.840.1.664679.3.579.2. 593 1960 Unknown [id number] 2.16.840.1.012288.3.579.2. 593 1960 Unknown [id number] 2.16.840.1.898428.3.579.2. 593 1960 Unknown [id number] 2.16.840.1.569552.3.579.2. 593 1960 Unknown [id number] 2.16.840.1.139210.3.579.2. 593 1960 Unknown [id number] 2.16.840.1.247800.3.579.2. 593 1960 Unknown [id number] 2.16.840.1.803629.3.579.2. 593 1960 Unknown [id number] 2.16.840.1.267182.3.579.2. 593 1960 Unknown [id number] 2.16.840.1.179243.3.579.2. 593 1960 Unknown [id number] 2.16.840.1.824547.3.579.2. 593 1960 Unknown [id number] 2.16.840.1.329085.3.579.2. 727 1960 Unknown [id number] 2.16.840.1.241880.3.579.2. 727 1960 Unknown [id number] 2.16.840.1.290555.3.579.2. 1259 1960 Unknown [id number] 2.16.840.1.876248.3.579.2. 1259 1960 Unknown [id number] 2.16.840.1.896043.3.579.2. 1259 1960 Unknown [id number] 2.16.840.1.769749.3.579.2. 1259 1960 Unknown [id number] 2.16.840.1.727526.3.579.2. 1259 1960 Unknown [id number] 2.16.840.1.126718.3.579.2. 1259 1960 Unknown [id number] 2.16.840.1.346327.3.579.2. 1259 1960 Unknown [id number] 2.16.840.1.975506.3.579.2. 1259 1959 Medicare [id number] 1959 Self-pay 1959 Unknown [id number] 1959 Unknown [id number] Social History Date Type Detail Facility Unknown if ever smoked [facility] Other Start: 07-21-2023 End: 08-18-2023 Sex Assigned At [facility] Tobacco smoking status No Smokin g Status Entered [facility] Start: 05-24-2023 [facility] End: 07-11-1990 History of tobacco use Current smoker [facility] End: 07-11-1990 History of tobacco use Cigarette Smoker [facility] Start: 05-24-2023 Tobacco use and exposure Smokeless tobacco non-user [facility] Start: 07-21-2023 End: 08-18-2023 Alcohol intake Current drinker of alcohol (finding) [facility] Start: 07-21-2023 End: 08-18-2023 History of Social function [facility] How often to you hav e a drink containing alcohol? Monthly or less [facility] How many standard drinks containing alcohol do you have on a typical day? 1 or 2 [facility] How often do you hav e 6 or more drinks on 1 occasion? Weekly [facility] Start: 12-30-2022 Alcohol Comment caffiene 1-2 c ups daily [facility] Start: 1960 Sex Assigned At Not on file [facility] Medical Equipment Procedure Code Equipment Code Equipment Origin al Text Equipment Identifier Dates SHOULDER TOTAL ARTHROPLASTY Anderson CAMPOS Jordan A 04/06/23 Unknown Shoulder R FDA Start: 04-06-2023 SHOULDER TOTAL ARTHROPLASTY Anderson CAMPOS Jordan A 04/06/23 Unknown Shoulder R FDA Start: 04-06-2023 SHOULDER TOTAL ARTHROPLASTY Anderson DO Jordan A 04/06/23 Unknown Shoulder R FDA Start: 04-06-2023 SHOULDER TOTAL ARTHROPLASTY Anderson DO Jordan A 04/06/23 Unknown Shoulder R FDA Start: 04-06-2023 SHOULDER TOTAL ARTHROPLASTY Anderson DO, Jordan A 04/06/23 Unknown Shoulder R FDA Start: 04-06-2023 SHOULDER TOTAL ARTHROPLASTY Anderson DO, Jordan A 04/06/23 Unknown Shoulder R FDA Start: 04-06-2023 SHOULDER TOTAL ARTHROPLASTY Anderson DO, Jordan A 04/06/23 Unknown Shoulder R FDA Start: 04-06-2023 SHOULDER TOTAL ARTHROPLASTY Anderson DO, Jordan A 04/06/23 Unknown Shoulder R FDA Start: 04-06-2023 SHOULDER TOTAL ARTHROPLASTY Anderson DO, Jordan A 04/06/23 Unknown Shoulder R FDA Start: 04-06-2023 Functional Status Date Assessment Result Facility 03-24-2023 Functional Status No [facility] Clinical Notes 10-22-2021 to 08-18-2023 Kathi Neumann - 08/18/2023 3:45 PM EST Note Date & Type Note Facility 08-18-2023 History of Presen t illness Narrative Images from the original note were not included. Radha Zaidi is a 63 y.o. female presents with chief complaint of Follow-up of the Right Shoulder (R rev TSA 04/06/23) HPI: Radha is a 63-year-old right hand dominant female here today to follow-up on her right shoulder. She is 4-1/2 months status post right reverse total shoulder arthroplasty. Date of surgery was 04/06/2023. 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 She states her hand has improved. She points to the anterior aspect of the shoulder as the location of her discomfort. SUBJECTIVE: MEDICATIONS: Current Outpatient Medications Medication Instructions aspirin 81 MG EC tablet 1 tablet, Oral, Daily buPROPion XL (Wellbutrin XL) 300 MG 24 hr tablet citalopram (CeleXA) 10 MG tablet HYDROcodone-acetaminophen (Anoka) 5-325 MG tablet TAKE 1 TABLET BY MOUTH 3 TIMES A DAY NEEDED FOR PAIN*MUS LAST 30 DAYS leflunomide (Arava) 10 MG tablet leflunomide 10 mg tablet lisinopril 5 MG tablet 1 tablet, Oral, Daily metoprolol succinate XL (Toprol-XL) 100 MG 24 hr tablet metoprolol succinate ER 100 mg tablet,extended release 24 hr TAKE 1 TABLET DAILY omeprazole (PriLOSEC) [address] capsule omeprazole 40 mg capsule,delayed release pregabalin (Lyrica) 150 MG capsule Rinvoq 15 MG tablet sustained-release 24 hour Daily RT tiZANidine (Zanaflex) 4 MG tablet tizanidine 4 mg tablet valACYclovir (VALTREX) 2,000 mg, Oral, 2 times daily ALLERGIES: No Known Allergies SURGICAL HISTORY: Past Surgical History: Procedure Laterality Date CERVICAL SPINE SURGERY x2 - 2017 ; 2018 - Dr Stallworth FOOT SURGERY Right Padandalam HAND SURGERY Bilateral R - 2000 ; L - 2002 LUMBAR DISCECTOMY 2000 LUMBAR SPINE SURGERY x2 - 1990 & 1992 ORIF TIBIA FRACTURE 2019 ORIF WRIST FRACTURE ROTATOR CUFF REPAIR 2016 SHOULDER SURGERY Right [address] Estrella SPINAL FUSION 2000 TOTAL SHOULDER ARTHROPLASTY Right 04/06/2023 R REV - NILA FAMILY HISTORY: Family History Problem Relation Name Age of Onset Diabetes Mother Clarice Alvarado Cancer Mother Clarice Alvarado Diabetes Father Pete Mansfield Cancer Father Pete Mansfield Hypertension Father Pete Mansfield Stroke Father Pete Mansfield SOCIAL HISTORY: Social History Tobacco Use Smoking status: Former Types: Cigarettes Quit date: 07/11/1990 Years since quittin.1 Smokeless tobacco: Never Vaping Use Vaping Use: Never used Substance Use Topics Alcohol use: Yes Comment: caffiene 1-2 cups daily Drug use: Never Depression: Not on file REVIEW OF SYMPTOMS: The review of systems, history and current medications list are all reviewed today. OBJECTIVE: Visit Vitals Temp 97.1 F Ht 5' 4 Wt 164 lb BMI 28.15 kg/m OB Status Unknown Smoking Status Former BSA 1.83 m Physical Exam She is alert and oriented, well nourished, well hydrated female in no acute distress. Mood and affect are appropriate. She is wearing the arm sling today. RIGHT SHOULDER Incision is benign. There is no swelling. There is no erythema. There is no ecchymosis. Range of motion is not tested. When I internally and externally rotate the arm with the elbow in at the side, this does not cause any significant pain. The deltoid contracts. She is tender over the coracoid process. No tenderness over the scapular spine and acromion. No tenderness at the AC joint. No tenderness over the conjoint tendon. She can flex and extend the elbow and wrist. She can make a fist. She can extend her thumb against resistance. The hand is well-perfused. IMAGING Two views of the right shoulder; Grashey and axillary were taken today in the office are reviewed, and saved to the permanent medical record. The prosthesis is unchanged in position and alignment. There is no prosthetic loosening or failure. No scapular notching. The scapular spine appears to be intact. No obvious fractures at the coracoid process. ASSESSMENT AND PLAN: Assessment/Plan 63-year-old right hand dominant female with right shoulder pain status post reverse total shoulder arthroplasty. I reviewed the history, physical examination, radiographs and diagnosis with the patient. We will obtain laboratory studies including CBC, Sed rate, CRP, IL-6. We will also obtain a CT scan of the right shoulder with metal reduction. She will return after these have been completed to review the results and for further recommendations. In the meantime she will continue with the arm sling. A total of 20 to 29 minutes was spent on this patient encounter which included chart review, check in, nurse triage, history taking, physical examination, diagnostic study review, patient counseling and discussion, entering information into the patient's medical record, and coordinating patient care. Jordan Yuan D.O. documented in this encounter [facility] 08-17-2023 Evaluation note Encounter Date Diagnosis Assessment Notes Aug, Wellness examination (ICD-10 - Z00.00) Healthy diet and exercise. Reviewed age-appropriat e preventive testing recommended. Aug, Primary hypertension (ICD-10 - I10) This patient is instructed to consume a healthy, low-fat, low-salt diet. They are also encouraged to continue exercise to achieve/mainta in a normal BMI. Patient is instructed on home BP measurements: - rest for 5 minutes w/o talking.- positioned w/ feet on floor and arm supported.- average best 2/3 readings w/ goal < 135/85.- update office w/ home readings in 2 weeks. 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 Instructed to avoid abrupt d/c of medications. Counseling recommended Aug, PSVT (paroxysmal supraventricular tachycardia) (ICD-10 - I47.10) Instructed on healthy diet and exercise. Continue Metoprolol to decrease frequency. Avoid stimulants Aug, Overweight (ICD-10 - E66.3) This patient has been instructed on a low-fat, high-fiber diet. They are instructed to reduce calories, portion sizes and snacks. It is recommended that they exercise for 30 minutes, 3-5 times weekly. Aug, Immunosuppressed status (ICD-10 - D84.9) Due to rheumatoid medication UTD w/ vaccines. 07 Feb, 2024 Screening mammogram for breast cancer (ICD-10 - Z12.31) Instructed patient on monthly SBE and yearly mammograms. Aug, Hx of rheumatoid arthritis (ICD-10 - Z87.39) Symptoms tolerable, continue medical treatment f/u Rheumatology [facility] Other 12-19-2023 Evaluation note* Encounter Date Diagnosis Assessment Notes Treatment Notes Treatment Clinical Notes Jun, Acute bronchitis due to other [...] factor (ICD-10 - M05.742) Treatment renders her immunosuppressed , placing her at risk for more serious, prolonged illness. Jun, Immunosuppressed sta tus (ICD-10 - D84.9) [facility] Other 09-28-2023 Evaluation + Plan noteExtracted from: [...] Basic PRE Author:Hill Rai DO Date:04/06/23 Plan [place] [employer]hesi[employer] (ASA) physical status classification: Class II. Anesthetic Preoperative Plan: Anesthesia General. [facility] Interscalene block. [facility]09-28-2023 NotePatient: RADHA ZAIDI Age: 62 [...] 15 mg, 1 tab(s), Oral, Daily, 0 Refill(s)[facility]:Result Comment: Electronically Signed By: Jordan Yuan DO\.br\Date and Time Signed: 04/07/23 07:42 [id number] Hospital Discharge instructions Patient Education 04/07/2023 07:41:33 Iris Yuan - Shoulder Replacement (Custom) [place], [place] [facility] DISCHARGE INSTRUCTIONS: SHOULDER REPLACEMENT [...] developmentof persistent vomiting. Jordan Yuan, [facility] [address] [place] [id number] Reviewed: Follow Up Care 03/09/2023 13:56:15 With:Jordan Yuan Address: [address] [place] [phone] Business (1) When:04/19/2023 14:15:00 With:JOHN ASHBY Address: [address] [place] [address]- Business (1) When: Unknown [facility]09-26-2023 Note [id number]:[id number] 03-26-2023 Evaluation note* Encounter Date Diagnosis Assessment Notes Treatment Notes Treatment Clinical Notes Mar, Major depressive disorder, single episode, 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) [facility] [employer] Other 07-05-2023 Evaluation note* Encounter Date Diagnosis Assessment Notes Treatment Notes Treatment Clinical Notes Jan, Overweight (ICD-10 - E66.3) [facility] [employer] Other 07-03-2023 Evaluation note* Encounter Date Diagnosis [...] nervousness and lightheadedness are common w/d symptoms [facility] Other 06-02-2023 Evaluation note* Encounter Date Diagnosis Assessment Notes Treatment Notes Treatment Clinical Notes Dec, Overweight (ICD-10 - E66.3) [facility] Other 06-01-2023 Evaluation note* Encounter Date Diagnosis [...] will be very costly. Suggested referral to [facility] Other 05-02-2023 Evaluation note* Encounter Date Diagnosis [...] normal BMI. Monitor BP while taking Adipex [facility] Other 03-30-2023 NoteCONSULTATION PROCEDURE DATE: 10/07/2022 PROCEDURE: [...] at least 80% reduction of pain symptoms.[facility] [id number] NoteCONSULTATION CONSULTATION DATE: 10/07/2022 ADDENDUM: On examination of the right shoulder, the patient did have a positive right sided full can test, a positive Neida's test, Apley's test and cross body test. All four positive on examination date 10/07/2022.[facility] [id number] NoteCONSULTATION CONSULTATION DATE: 10/07/2022 TO: John Ashby [...] activity modification, use of Zanaflex, Lyrica and Anoka. RECOMMENDATIONS: I recommend proceeding with a right [...] right shoulder without contrast and physical therapy.[facility] [id number] Evaluation note* Encounter Date Diagnosis Assessment Notes Treatment Notes Treatment Clinical Notes Aug, Anemia (ICD-10 - D64.9) [facility] Other 01-16-2023 Evaluation note* Encounter Date Diagnosis [...] Healthy diet, exercise w/o change in treatment [facility] Other [id number] NoteCONSULTATION PROCEDURE DATE: 07/09/2022 PREOPERATIVE DIAGNOSIS: Right [...] will be followed up in the office.[facility] [id number] NoteCONSULTATION CONSULTATION DATE: 07/09/2022 HISTORY OF PRESENT [...] possible increase in dose. She also takes Anoka 5/325 t.i.d. and Zanaflex 4 mg three [...] three months' time, unless otherwise indicated. [facility] [id number] NoteCONSULTATION CONSULTATION DATE: 05/20/2022 HISTORY OF PRESENT [...] medications include Celexa, Lyrica 50 mg b.i.d., Anoka 5/325 t.i.d. and Zanaflex. Patient is having [...] level of C3-4. We will refill her Anoka at 5/325 t.i.d. Supportive home measures were discussed such as heat and a menthol heat rub, as well as vitamin compliance. The patient agrees to move forward with the plan, will be followed up in the clinic thereafter.[facility] [id number] NoteCONSULTATION PROCEDURE DATE: 02/17/2022 PRE AND POSTOPERATIVE [...] will be followed up in the clinic.[facility] [id number] NotePROCEDURE: XR SHOULDER RT 2V or > COMPARISON: None. HISTORY: Pain of right shoulder joint FINDINGS: BONES:No acute fracture or dislocation. Minimal degenerative changes. Cervical fusion hardware SOFT TISSUES:Negative. No visible soft tissue swelling. EFFUSION:None visible. OTHER: Negative. IMPRESSION: No acute abnormality Electronically authenticated by: VANDANA COLLINS Date: 2022-02-16 19:11[facility]07-26-2022 NoteCONSULTATION CONSULTATION DATE: 02/02/2022 CHIEF COMPLAINT: Right [...] aggravates the pain. The patient currently takes Anoka 5/325 t.i.d., wellbutrin 150 mg, Lyrica 50 [...] point tenderness along the right bicipital tendon. Car Salter strength is maintained. IMPRESSION: Current working diagnosis [...] like to proceed. 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 Cold weather and bending bother her as well. Medications include Lyrica 75 mg t.i.d., which she has not been taking for the past two months; Celexa, Anoka 5/325 t.i.d., Zanaflex and RINVOQ. She feels that her pain is managed well with her Anoka, but is concerned about the neuropathic pain [...] in need of a refill for her Anoka today, which we will give 5/325 t.i.d. [...] in three months' time unless otherwise indicated. [facility] Signed and Approved by: JACQUIE OLIVAS . 11/12/2021 16:27:00[facility] Future Appointments Appointment Date:04/06/2023 09:30:00 AM Scheduled Provider: Location:[facility] App[facility] noteNo InformationNort [facility] Other Evaluation note* Diagnosis Right shoulder pain, unspecified chronicity- Primary documented in this encounter [facility] N[facility] - Reported* Type Description Date [...] Surgical History ORIF, proximal fibula Surgical History [facility] 2011 Surgical History Lumbar fusion Surgical History ACDF C4-6 05/30 Hospitalization History See Above [facility] Other History general Narrative - Reported* Type [...] Surgical History ORIF, proximal fibula Surgical History [facility] 2011 Surgical History Lumbar fusion Surgical History ACDF C4-6 05/30 Surgical History Right reverse total shoulder ar throplasty 03/2023 Hospitalization History See Above [facility] Other Hospital course Narrative No data available [facility] this section [facility] No data available for this section [facility] No data available for this section [facility] Summary Purpose Family History No [...] section and content) DATE CREATED AUTHOR 12/29/2017 [facility] DATE CREATED AUTHOR AUTHOR'S ORGANIZ ATION 08/29/2018 [facility] DATE CREATED AUTHOR AUTHOR'S ORGANIZ ATION 05/13/2020 [facility] DATE CREATED AUTHOR AUTHOR'S ORGANIZ ATION 10/15/2022 [facility] DATE CREATED AUTHOR AUTHOR'S ORGANIZ ATION 04/23/2023 [facility] DATE CREATED AUTHOR AUTHOR'S ORGANIZ ATION 08/20/2023 [facility] EPIC REASON FOR VISIT (unrecogniz ed section and content) Reason Comments Follow-up R rev TSA 04/06/23 Patient Care team informatio n (unrecognized section and content) Edge Dyer Relationship Specialty Start Date End Date John Ashby MD [address] [place] [phone] PCP - General Internal Medicine 12/23/22 Edge Dyer Relationship Specialty Start Date End Date John Ashby MD [address] [place] [phone] PCP - General Internal Medicine 12/23/22 FOR RECORDS PERTAINING TO PATIENTS WHO ARE [...] BE BASED ON THE PRIMARY CLINICAL RECORDS. [facility]. provides no warranty or guarantee of the accuracy or completeness of information in this document.
[2023-08-30 15:10] LABS: Basophils Percent Auto 0.8 % (0.2-2.0); Eosinophils Absolute Auto 0.2 10^3/uL (0.0-0.7); Eosinophils Percent Auto 4.2 % (0.9-7.0); Hematocrit 39.5 % (36.0-48.0); Hemoglobin 12.5 g/dL (12.0-16.0); Immature Granulocytes Abs Auto 0.01 10^3/uL (0.00-0.03); Immature Granulocytes Pct Auto 0.3 % (0.0-0.5); Lymphocytes Absolute Auto 1.7 10^3/uL (1.2-3.8); Lymphocytes Percent Auto 44.8 % (20.5-60.0); Mean Corpuscular HGB Conc 31.6 g/dL (29.9-35.2); Mean Corpuscular Hemoglobin 31.1 pg (26.7-34.0); Mean Corpuscular Volume 98.3 fL (81.0-99.0); Mean Platelet Volume 9.1 fL (9.5-13.5); Monocytes Absolute Auto 0.5 10^3/uL (0.3-0.8); Monocytes Percent Auto 14.1 % (1.7-12.0); Neutrophils Absolute Auto 1.4 10^3/uL (1.4-6.5); Neutrophils Percent Auto 35.8 % (43.0-75.0); Platelet Count 181 10^3/uL (150-450); Red Blood Count 4.02 10^6/uL (4.20-5.40); Red Cell Distribution Width 13.4 % (11.0-15.0); White Blood Count 3.8 10^3/uL (4.0-11.0)
[2023-08-30 15:31] LABS: Erythrocyte Sedimentation Rate 16 mm/hr (<=30)
[2023-08-30 16:04] LABS: Alanine Aminotransferase 23 U/L (14-59); Albumin Globulin Ratio 1.1; Albumin Level 3.7 g/dL (3.4-5.0); Alkaline Phosphatase 45 U/L (46-116); Anion Gap 14.3; Aspartate Amino Transferase 21 U/L (15-37); BUN Creatinine Ratio 20.8; Bilirubin Total 0.4 mg/dL (0.2-1.0); Carbon Dioxide 25.5 mmol/L (21.0-32.0); Chloride 106 mmol/L (98-107); Estimated GFR (African America >60 (>=60); Estimated GFR (Non-African Ame 59 (>=60); Globulin 3.4 g/dL; Glucose 86 mg/dL (74-106); Potassium 3.8 mmol/L (3.5-5.1); Sodium 142 mmol/L (136-145); Total Protein 7.1 g/dL (6.4-8.2)
== END 2023-08-30 14:30 | disposition home or self-care (01) ==
LOC: LAB 14:31
PROVIDERS: PCP Internal Medicine; Visit Provider Internal Medicine Rheumatology
DX: M05.79 Rheumatoid arthritis with rheumatoid factor of multiple sites without organ or systems involvement (principal); M15.0 Primary generalized (osteo)arthritis; Z79.899 Other long term (current) drug therapy
CPT/HCPCS: 36415; 80053; 85025; 85652

== ENCOUNTER 2023-08-30 15:02 | Outpatient (OUT) | payer BC, MEDICARE, SELFPAY ==
--- NOTE | 2023-08-30 | CONS_ITS ---
CONSULTATION DATE: 08/30/2023 TO: Dr. Mcdaniels HISTORY: Patient presents today complaining of pain in her left shoulder. She reports the pain is rated 3/10 on the left side. It is described as a deep aching pain, which occasionally can become quite sharp with shoulder extension and flexion, as well as when performing empty can sign. She denies any change in bowel and bladder habits or new sensorimotor changes in the upper extremities. She reports that she recently refractured her right shoulder and is in a sling and is being evaluated by orthopedic surgeon. MEDICATION: Her current medication includes [place] 5 mg t.i.d. p.r.n., Lyrica 150 b.i.d., Zanaflex 4 mg t.i.d. She takes one pill in the morning and three at h.s. She reports the medications do improve her quality of life, level of functioning and sleep pattern and denies any side effects. Her JASEN on today?s visit is 60%. EXAM: On examination, on her left side revealed patient to have a non-focal sensorimotor exam of her upper extremity. Her deep tendon reflexes in her left upper extremity are currently stable. She had no appreciable Spurling?s sign. She had nothing to suggest myelopathy along the upper extremities. She did have very mild pain with left shoulder extension, internal rotation and adduction. She also had very minimal pain with left shoulder flexion with internal rotation. 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 RECOMMENDATIONS: I recommend no further intervention for her left shoulder and to return to the office in approximately three months? time or sooner if needed. As part of providing excellent, safe, comprehensive care, the following was completed at our patient's visit: 1. A medication reconciliation and review to ensure accurate knowledge of current/active medications, including asking our patients to inform us about any [id number] medications or herbal remedies/nutritional supplements/alternative remedies. 2. A review to specifically ensure our patients have had annual screening for: elevated body mass index (BMI, see intake chart for exact total), tobacco use, screening for depression, and screening for unhealthy alcohol use. When screening is concerning, patients are provided with education and the specific recommendation to discuss the concerning health issue and treatment options with their primary care provider. MANA
== END 2023-08-30 15:03 | disposition home or self-care (01) ==
PROVIDERS: PCP Internal Medicine; Visit Provider Anesthesiology Pain Medicine
DX: Z00.00 Encounter for general adult medical examination without abnormal findings (principal); M05.79 Rheumatoid arthritis with rheumatoid factor of multiple sites without organ or systems involvement; M15.0 Primary generalized (osteo)arthritis; Z79.899 Other long term (current) drug therapy
CPT/HCPCS: 36415; 80053; 80061; 84443; 85025; 85652; G0463

== ENCOUNTER 2023-08-30 15:50 | Outpatient (OUT) | payer BC, MEDICARE, SELFPAY ==
[2023-08-30 16:54] LABS: Chol HDL Ratio 3.3; Cholesterol 246 mg/dL (<=200); HDL Cholesterol 74 mg/dL (40-60); Thyroid Stimulating Hormone 1.531 uIU/mL (0.358-3.740); Triglycerides 101 mg/dL (<=150); VLDL CHOLESTEROL 20.2 mg/dL
== END 2023-08-30 15:51 | disposition home or self-care (01) ==
LOC: LAB 15:54
PROVIDERS: PCP Internal Medicine; Visit Provider Internal Medicine
DX: Z00.00 Encounter for general adult medical examination without abnormal findings (principal)
CPT/HCPCS: 36415; 80053; 80061; 84443; 85025; 85652

== ENCOUNTER 2023-11-24 14:51 | Outpatient (OUT) | payer BC, MEDICARE, SELFPAY ==
--- NOTE | 2023-11-24 15:16 | P.CN_ITS ---
Consult Note: HPI Data of Consult Patient: known to practice within the last 3 years Requesting Physician: Veronique Yu NP Primary Care Provider: John Mcdaniels DO Consult Narrative Reason for consult: f/u Narrative: Radha Obrien a pleasant 62 year old female presents for evaluation and management of low back pain and left shoulder pain. Today rating pain 5/10 in bilateral shoulders and low back without radiculopathy. Patient has had >1 year pain relief and functional improvement from lumbar RFAs in 2019. Patient recently had right shoulder surgery and is doing well, but continues to have pain. Patient would like to repeat lumbar thermal RFA in the near future. Patient reports significant improvement from prior left AC injection, greater than 50% improvement more than 3 months and would like to repeat. cc:: CC: Veronique Yu NP Review of Systems ROS Status of ROS 10 or more systems reviewed and unremark able except as noted in history and below Musculoskeletal Reports: back pain and joint pain Meds Home Medications and Allergies Home Medications ?Medication ?Instructions ?Recorded ?Confirmed ?Type bupropion HCl 150 mg tablet,12 hr 150 mg PO DAILY 12/15/22 12/15/22 History sustained-release (Wellbutrin SR) calcium PO .qd 12/15/22 History citalopram 20 mg tablet (Celexa) 20 mg PO DAILY 12/15/22 12/15/22 History hydrocodone 5 mg-acetaminophen 325 1 tab PO TID PRN pain 12/15/22 12/15/22 History mg tablet leflunomide 10 mg tablet (Arava) 10 mg PO DAILY 12/15/22 12/15/22 History lisinopril 5 mg tablet 5 mg PO DAILY 12/15/22 12/15/22 History metoprolol succinate 25 mg 25 mg PO DAILY 12/15/22 12/15/22 History tablet,extended release 24 hr (Toprol XL) pregabalin 150 mg capsule (Lyrica) 150 mg PO BID 12/15/22 12/15/22 History tizanidine 4 mg capsule (Zanaflex) 4 mg PO TID PRN muscle spasticity 12/15/22 12/15/22 History upadacitinib 15 mg tablet,extended 15 mg PO DAILY 12/15/22 12/15/22 History release 24 hr (Rinvoq) naloxone 4 mg/actuation nasal 4 mg intranasal Q3M PRN opioid 03/16/23 Rx spray (Narcan) overdose #2 ea oxycodone-acetaminophen 5 mg-325 1 tab PO TID PRN pain #63 tabs 03/16/23 Rx mg tablet (Percocet) oxycodone-acetaminophen 5 mg-325 1 tab PO TID PRN pain #63 tabs 03/16/23 Rx mg tablet (Percocet) pregabalin 150 mg capsule 150 mg PO BID #180 caps 03/31/23 Rx hydrocodone 5 mg-acetaminophen 325 1 tab PO TID PRN pain #90 tabs 06/30/23 Rx mg tablet hydrocodone 5 mg-acetaminophen 325 1 tab PO TID PRN pain #90 tabs 07/25/23 Rx mg tablet pregabalin 150 mg capsule (Lyrica) 150 mg PO BID #180 caps 07/25/23 Rx hydrocodone 5 mg-acetaminophen 325 1 tab PO TID PRN pain #90 tabs 08/30/23 Rx mg tablet hydrocodone 5 mg-acetaminophen 325 1 tab PO TID PRN pain #90 tabs 09/27/23 Rx mg tablet hydrocodone 5 mg-acetaminophen 325 1 tab PO TID PRN pain #90 tabs 10/25/23 Rx mg tablet Allergies Allergy/AdvReac Type Severity Reaction Status Date / Time No Known Drug Allergies Allergy Verified 12/15/22 09:27 Exam Constitutional Documenting provider has reviewed patient's vital signs: yes Common normals: no apparent distress, oriented x3, healthy appearing, alert and well nourished General appearance: cooperative HENMI Common normals: normocephalic, hearing grossly normal bilaterally and moist oral mucous membranes Head and scalp: normocephalic Eye Common normals: PERRL Pupil: PERRL Neck & C-Spine Common normals: full ROM General: normal visual inspection Chest Common normals: inspection of chest normal Respiratory Common normals: normal respiratory effort, no retractions and no use of accessory muscles Back & Pelvis Lumbar spine/lower back: ROM limited, pain with ROM and straight leg raise negative bilaterally Other: positive facet loading bilaterally. predominately axial back pain without radiculopathy Extremity Right upper extremity: shoulder joint Left upper extremity: shoulder joint Other: left shoulder tenderness over AC joint, pain with overhead ROM, positive crossbody adduction, empty can test and posterior lift off right shoulder and bicep abnormal muscle tone and swelling, limited ROM Neuro Common normals: oriented x3, CN's II-XII intact bilaterally, moves all extremities, no focal motor deficits, no sensory deficits noted and deep tendon reflexes 2+ bilaterally Sensorium/orientation: alert Gait (neuro): normal gait Motor exam: strength 5/5 throughout and no movement abnormalities noted Psych Common normals: mental status grossly normal, thought process normal, cooperative, affect normal, speech normal and activity/motor behavior normal Speech: normal speech Thought process: normal thought process Results Additional Findings Additional findings: If on a controlled substance or opioids, I have checked an [place] report on this patient and there are no aberrancies noted in the prescribing history.??If on a controlled substance or opioid a drug screen was completed and reviewed within the last year, and if there has not been a drug screen completed we ordered one today to monitor higher risk, state monitored pain medication use. As part of providing excellent, safe, comprehensive care, the following was completed at our patient's visit: 1. A medication reconciliation and review to ensure accurate knowledge of current/active medications, including asking our patients to inform us about any [id number] medications or herbal remedies/nutritional supplements/altern ative remedies. 2. A review to specifically ensure our patients have had annual screening for screening for depression, screening for tobacco use, and screening for unhealthy alcohol use. For concerning screenings had a discussion with the patient, provided patient education, and recommended follow-up with primary care provider when appropriate. If patient noted with a risk of falling, they received education on strength, gait, and balance training to prevent future risk of falling. Assessment and Plan Assessment and Plan (1) Lumbar spondylosis: (2) Chronic prescription opiate use: Assessment and Plan: I feel these medications are improving the patient's quality of life and allow them to tolerate activities of daily living as well as participate in recreational activity.? The patient does not report intolerable side effects. The patient is NOT opioid naive and non-pharmacologic and non-opioid treatment has failed to significantly relieve the patient's pain and improve functionality. The patient has a diagnosis that is related to a somatic or visceral pain etiology. ? ?? I reviewed with the patient the potential risks and side effects with the use of? opioid medications including but not limited to respiratory depression,? sedation, and even . I verified the patient has access to naloxone should? these effects occur. I advised the patient to avoid the use of any other? sedation substances including alcohol, THC, and benzodiazepines while? taking opioid medications due to the risk of compounding side effects and? detrimental outcomes. I reviewed the [employer], pain treatment agreement, urine? drug screen, and opioid start talking forms. The patient was advised to let? their family know they had Naloxone in case they would need to administer? the medication.? ?? A drug screen was completed within the last year, and no aberrancies were noted regarding their use of controlled substances. The patient understands they are subject to the terms and conditions of the pain contract that they have signed. ? ?? I have checked an [place]AR[place] report on this patient today and there are no aberrancies noted in the prescribing history.? (3) Osteoarthritis of left shoulder: (4) Right shoulder pain: (5) Myofascial pain: Plan repeat left AC injection with Dr Richards continue current medications, tolerating well without side effects. risks vs benefits reviewed transdermal therapeutics cream 3 TID-QID to right shoulder/bicep
== END 2023-11-24 14:52 | disposition home or self-care (01) ==
PROVIDERS: PCP Internal Medicine; Visit Provider Nurse Practitioner
DX: M47.816 Spondylosis without myelopathy or radiculopathy, lumbar region (principal); Z79.891 Long term (current) use of opiate analgesic; M19.012 Primary osteoarthritis, left shoulder; M25.511 Pain in right shoulder; M79.18 Myalgia, other site
CPT/HCPCS: G0463

== ENCOUNTER 2023-12-13 14:37 | Outpatient (OUT) | payer BC, MEDICARE, SELFPAY ==
--- NOTE | 2023-12-13 14:37 | PCN_ITS ---
PROCEDURE NOTE PROCEDURE DATE: ??12/13/2023 PROCEDURE:? Left AC joint injection. PREOPERATIVE DIAGNOSIS:? 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 POSTOPERATIVE DIAGNOSIS:? 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 SOLUTION USED FOR INJECTION:? 2 mL of 2% lidocaine, 2 mL of 0.25% Marcaine and 10 mg of Kenalog, total of 5 mL, and 2 mL used for the injection. IMMEDIATE COMPLICATIONS:? None. PROCEDURE:? After informed consent was obtained from the patient, placed in the sitting position.? Skin overlying the area was prepped with alcohol.? A 25 gauge, 1 ?? needle was inserted into the left AC joint.? After encountering same, we injected 2 mL of solution.? No indication of intravascular or intraneural needle tip placement or injection.? Patient reports reduction of pain post procedurally.? MTDD
--- NOTE | 2023-12-13 14:37 | CONS_ITS ---
PAIN MANAGEMENT CONSULTATION CONSULTATION DATE: ??12/13/2023 TO:? Dr. Mcdaniels CHIEF COMPLAINT:? Includes left shoulder pain. HISTORY:? She reports the pain as being 6/10 in severity, sharp in character, increased with activities such as lifting maneuvers, pushing/pulling maneuvers.? She feels most comfortable in the semi-recumbent position.? She has denied any change in bowel and bladder habits, or new sensorimotor change in the lower extremities.? MEDICATION:? Current medication includes Lyrica 150 b.i.d, Estill 5 mg t.i.d.? She reports this does improve her quality of life, level of functioning and, at times, her sleep pattern.? Denies any side effects.? She has no signs consistent with acceleration of opioid medication. Her JASEN on today?s visit is 49%.? He is also on Zanaflex 4 mg, one in the morning and two at bedtime. EXAMINATION:? Notable for patient having point tenderness over the left AC joint, reduced range of motion of the left shoulder with shoulder flexion, as well as left shoulder extension and internal rotation.? IMPRESSION:? Our impression is patient with chronic pain secondary to left AC joint arthrosis. RECOMMENDATIONS:? I have recommended a left AC joint injection, physical therapy, proceed with a left shoulder x-ray and see the patient back in the office in six weeks? time or sooner if needed.? Of note, status post left shoulder injection with combination Marcaine, lidocaine and Kenalog, she reports reduction of her pain symptoms post procedurally. As part of providing excellent, safe, comprehensive care, the following was completed at our patient's visit: 1. A medication reconciliation and review to ensure accurate knowledge of current/active medications, including asking our patients to inform us about any [id number] medications or herbal remedies/nutritional supplements/alternative remedies. 2. A review to specifically ensure our patients have had annual screening for: elevated body mass index (BMI, see intake chart for exact total), tobacco use, screening for depression, and screening for unhealthy alcohol use.? When screening is concerning, patients are provided with education and the specific recommendation to discuss the concerning health issue and treatment options with their primary care provider. MANA
== END 2023-12-13 14:38 | disposition home or self-care (01) ==
LOC: PM 14:38
PROVIDERS: PCP Internal Medicine; Visit Provider Anesthesiology Pain Medicine
DX: Z12.31 Encounter for screening mammogram for malignant neoplasm of breast (principal); Z80.3 Family history of malignant neoplasm of breast; Z80.42 Family history of malignant neoplasm of prostate; M25.512 Pain in left shoulder; M19.012 Primary osteoarthritis, left shoulder
CPT/HCPCS: 20610; 73030; 77063; 77067

== ENCOUNTER 2023-12-13 16:04 | Outpatient (OUT) | payer BC, MEDICARE, SELFPAY ==
--- NOTE | 2023-12-13 | XR_ITS ---
The [address] [address] Patient Name: ALEXANDER ZAIDI MRN: [id number] date: 1960 Sex: F Assigned Patient Location: [facility] Current Patient Location: Accession/Order Number: [id number] Exam Date: 12/13/2023 16:23 Report Date: 12/15/2023 07:20 At the request of: NICOLE SANCHEZ Procedure: XR shoulder LT min 2V PROCEDURE: XR shoulder LT min 2V HISTORY: left shoulder pain , chronic COMPARISON: XR shoulder left 03/26/2021 FINDINGS: BONES:No fracture, acute abnormality, or significant arthropathy. SOFT TISSUES:No visible soft tissue swelling. EFFUSION:None visible. OTHER: Negative. XR/XR shoulder LT min 2V IMPRESSION: 1. No acute or suspicious bone abnormality. 2. No significant degenerative joint disease. Electronically authenticated by: JULIAN CEBALLOS Date: 12/15/2023 07:20
--- OUTSIDE RECORDS SUMMARY | 2023-12-13 16:27 | XMS_ITS ---
Patient Summarization (C-CDA 2.1 CCD) Created on: December 13, 2023 ZAIDIRADHA : 1960 Sex: Female Author Organization Sample organization Care Team Providers Care Press Tender Incendiary Grenade Name Role Phone BASIM, BARRY H. Unavailable Unavailable BASIM, BARRY H. Unavailable Unavailable BALL, JOHN E Unavailable Unavailable BASIM, BARRY H. Unavailable Unavailable BALL, JOHN E Unavailable Unavailable EBRAHEIM, MARYURI Attending Unavailable EBRAHEIM, MARYURI Admitting Unavailable BALL, JOHN Referring Unavailable BALL, JOHN Primary Care Unavailable EBRAHEIM, MARYURI Surgeon Unavailable [place] Procedure Practitioner Unavailab le [place] Procedure Practitioner Unavailab le LANCTASH Maza Surgeon Unavailable EBRAHEIM, MARYURI Attending Unavailable SYMONE, JOHN Primary Care Unavailable BALL, JOHN Referring Unavailable EBRAHEIM, MARYURI Admitting Unavailable Ball, John Unavailable DANDRE ., DR SO Estrada [...] Unavailable SYMONE, DR LOPEZ Primary Care Unavailable BALL, DR LOPEZ Consulting Unavailable SYMONE, DR LOEPZ Attending Unavailable SYMONE, DR LOPEZ Admitting Unavailable SYMONE, DR LOPEZ Primary Care Unavailable SYMONE, DR LOPEZ Consulting Unavailable SYMONE, DR LOPEZ Attending Unavailable SYMONE, DR LOPEZ Admitting Unavailable ZIEBER, DR JULIAN Moran Consulting Unavailable SYMONE, DR LOPEZ Primary Care Unavailable AMOS ., DR SO Estrada Admitting Unavailable OLIVAS ., JACQUIE Consulting Unavailable AMOS ., DR SO Estrada Attending Unavailable SYMONE, DR LOPEZ Primary Care Unavailable GAUTAM, DR JOHNSON Attending Unavailable GAUTAM, DR JOHNSON Admitting Unavailable GAUTAM, DR JOHNSON Consulting Unavailable OLIVAS ., JACQUIE [...] OLIVAS ., JACQUIE Consulting Unavailable LAKSHMIPATHY ., NARENDRANATH Admitting Amy vailable LAKSHMIPATHY ., NICOLE Consulting Amy vailable LAKSHMIPATHY ., NICOLE Attending Amy vailable BALL, DR LOPEZ Primary Care Unavailable LAKSHMIPATHY ., NICOLE Admitting Amy vailable BALL, DR LOPEZ Primary Care Unavailable LAKSHMIPATHY ., NARENDALEKS Attending Amy vailable THANH, MICHELE Attending Unavailable [...] FLOREZ, DR JOHNSON Consulting Unavailable LAKSHMIPATHY ., NARENDALEKS Admitting Amy vailable LAKSHMIPATHY ., NICOLE Attending Amy vailable SYMONE, DR LOPEZ Primary Care Unavailable VANDANA YUAN Consulting Unavailable LAKSHMIPATHY ., PALMIRAENDALEKS Consulting Amy vailable JOHN ASHBY Primary Care Physician [phone] Cesia Artis Unavailable Unavailable John Ashby MD Primary Care Provider Jordan Yuan Attending Unavailable Brown, Jordan A Admitting Unavailable Brown, Jordan A Referring Unavailable Brown, Jordan A Attending Unavailable Brown, Jordan A Admitting Unavailable Brown, Jordan A Referring Unavailable Brown, Jordan A Attending Unavailable Brown, Jordan A Admitting Unavailable Brown, Jordan A Referring Unavailable CAROLINA ZHONG Attending Unavailable BROWN, JORDAN A Attending Unavailable BROWN, JORDAN A Referring Unavailable BROWN, JORDAN A Referring Unavailable BROWN, JORDAN A Attending Unavailable BROWN, JORDAN A Attending Unavailable JORDAN YUAN Referring Unavailable JORDAN YUAN Referring Unavailable JORDAN YUAN Attending Unavailable JORDAN YUAN Attending Unavailable JORDAN YUAN Referring Unavailable JORDAN YUAN Attending Unavailable Allergies Allergy Classification Reported Allergen(s) Allergy Type Date of Onset Reaction(s) Facility (1 source) [id number]; Translations: [Unknown] Propensity to adverse reactions (disorder) 2 [facility] (18 sources) Cephalexin Drug Allergy Unknown zerved Other (7 sources) patient allergy list reviewed by nurse or physicia Propensity to adverse reactions 4 Comment:Done zerved Other Encounters Encounter Date Encounter Type Care Provider Facility Start: 11-15-2023 End: 11-15-2023 ambulatory JORDAN YUAN Not Available Start: 11-04-2023 End: 11-04-2023 ambulatory [facility] Start: 09-28-2023 End: 09-28-2023 ambulatory [facility] Work Phone: Start: 09-28-2023 End: 09-28-2023 Patient encounter procedure [facility] Physician [facility] Work Phone: Start: 09-13-2023 End: 09-13-2023 ambulatory JORDAN YUAN Not Available Start: 09-06-2023 End: 09-07-2023 ambulatory Jordan Yuan [facility] Start: 09-06-2023 End: 09-06-2023 Patient encounter procedure Jordan Yuan [facility] Start: 09-05-2023 Non-patient / [facility] Start: 09-05-2023 End: 09-05-2023 ambulatory John Ashby Other zerved Other Start: 09-05-2023 Telephone encounter John Ashby [facility] Start: 09-02-2023 Non-patient / Non-visit [facility]ician [facility] Work Phone: Start: 08-30-2023 Non-patient / Non-visit [facility] Work Phone: Start: 08-18-2023 End: 08-18-2023 ambulatory JORDAN YUAN Not Available Start: 08-18-2023 End: 08-18-2023 Patient encounter procedure Jordan Yuan DO Work Phone: [facility] Comment on above: Right shoulder pain, unspecified chronicity (Primary Dx) Start: 08-18-2023 Chart abstracting Jordan do DO Work Phone: [facility] Start: 08-17-2023 End: 08-17-2023 ambulatory John Ashby Other zerved Other Start: 08-17-2023 Encounter for genera l adult medical examination without abnormal findings John Ashby [facility] Start: 08-17-2023 Periodic preventive med est patient 40-64yrs John Ashby [facility] Start: 07-21-2023 End: 07-21-2023 ambulatory JORDAN YUAN Not Available Start: 07-05-2023 End: 07-05-2023 ambulatory JORDAN YUAN Not Available Start: 06-28-2023 End: 06-28-2023 ambulatory John Ashby Other zerved Other Start: 06-28-2023 Office outpatient vi sit 15 minutes John Ashby [facility] Start: 05-24-2023 End: 05-24-2023 ambulatory JORDAN YUAN Not Available Start: 05-06-2023 End: 05-06-2023 ambulatory John Ashby Other zerved Other Start: 05-06-2023 Telephone encounter John Ashby [facility] Start: 04-26-2023 End: 04-26-2023 ambulatory John Symone Other zerved Other Start: 04-26-2023 Telephone encounter John [facility] Start: 04-06-2023 End: 04-07-2023 ambulatory Jordan Yuan Facility[facility] Start: 04-06-2023 End: 04-07-2023 Admission to same day surgery center Jordan Sue Yuan [facility] Start: 03-31-2023 End: 03-31-2023 ambulatory John Ashby Other zerved Other Start: 03-31-2023 Telephone encounter John [facility] Start: 03-26-2023 End: 03-26-2023 ambulatory John Ashby Other zerved Other Start: 03-26-2023 Telephone encounter John [facility] Start: 03-24-2023 End: 03-25-2023 ambulatory Jordan Yuan Facility[facility] Start: 03-24-2023 End: 03-24-2023 Patient encounter procedure Jordan Sue Anderson [facility] Start: 03-21-2023 End: 03-21-2023 ambulatory John Ashby Other zerved Other Start: 03-21-2023 Telephone encounter John [facility] Start: 01-12-2023 End: 01-12-2023 ambulatory John Ashby Other zerved Other Start: 01-12-2023 Telephone encounter John [facility] Start: 01-10-2023 End: 01-10-2023 ambulatory John Ashby Other zerved Other Start: 01-10-2023 Office outpatient vi sit 15 minutes John Ashby [facility] Start: 12-14-2022 End: 12-14-2022 ambulatory John Ashby Other zerved Other Start: 12-14-2022 Telephone encounter John Symone [facility] Start: 12-10-2022 End: 12-10-2022 ambulatory John Ashby Other zerved Other Start: 12-10-2022 Telephone encounter John Ashby [facility] Start: 12-09-2022 End: 12-09-2022 ambulatory John Ashby Other zerved Other Start: 12-09-2022 Office outpatient vi sit 15 minutes John Ashby [facility] Start: 11-09-2022 End: 11-09-2022 ambulatory John Ashby Other zerved Other Start: 11-09-2022 Office outpatient vi sit 15 minutes John Ashby [facility] Start: 10-13-2022 ambulatory NARENDRANATH LAKSHMIPATHY . Facility:[facility] Start: 10-07-2022 End: 10-08-2022 ambulatory NARENDRANATH LAKSHMIPATHY . Facility:[facility] Start: 09-22-2022 End: 09-22-2022 ambulatory John Symone Other zerved Other Start: 09-22-2022 Telephone encounter John [facility] Start: 09-16-2022 End: 09-17-[address] JOHN ASHBY Facility:[facility] Start: 08-14-2022 End: 08-14-2022 ambulatory John Symone Other zerved Other Start: 08-14-2022 Telephone encounter John Symone [facility] Start: 07-26-2022 End: 07-26-2022 ambulatory John Ashby Other zerved Other Start: 07-26-2022 Office outpatient vi sit 15 minutes John Ashby [facility] Start: 07-22-2022 Annual wellness visit John Ashby Other zerved Other Start: 07-22-2022 Patient encounter procedure John Ashby Other zerved Other Start: 07-09-2022 End: 07-10-[address] JOHN ASHBY Facility:[facility] Start: 06-21-2022 Adult health examination John Symone Other zerved Other Start: 06-21-2022 Gynecological examination normal John Symone Other zerved Other Start: 2022 End: 06-09-[address] JOHN ASHBY Facility:[facility] Start: 06-01-2022 End: 06-01-[address] JOHN ASHBY Facility:[facility] Start: 05-24-2022 Encounter for genera l adult medical examination without abnormal findings DR JOHN ASHBY [facility] Start: 05-20-2022 End: 05-21-[address] [...] End: 03-13-2020 Patient encounter procedure MARYURI ALEXANDER Facility:[facility] Start: 03-05-2020 End: 03-20-2020 Patient encounter procedure MARYURI EBRAHEIM Facility:[facility] Start: 10-20-2017 End: 10-21-[address] [facility] [place] Start: 10-13-2017 End: 10-18-2017 [facility] [place] Medical Equipment Procedure Code Equipment Code Equipment Origin al Text Equipment Identifier Dates SHOULDER TOTAL ARTHROPLASTY Brown DO, Jordan A 04/06/23 Unknown Shoulder R FDA Start: 04-06-2023 SHOULDER TOTAL ARTHROPLASTY Brown DO, Jordan A 04/06/23 Unknown Shoulder R FDA Start: 04-06-2023 SHOULDER TOTAL ARTHROPLASTY Brown DO, Jordan A 04/06/23 Unknown Shoulder R FDA Start: 04-06-2023 SHOULDER TOTAL ARTHROPLASTY Brown DO, Jordan A 04/06/23 Unknown Shoulder R FDA Start: 04-06-2023 SHOULDER TOTAL ARTHROPLASTY Brown DO, Jordan A 04/06/23 Unknown Shoulder R FDA Start: 04-06-2023 SHOULDER TOTAL ARTHROPLASTY Brown DO, Jordan A 04/06/23 Unknown Shoulder R FDA Start: 04-06-2023 SHOULDER TOTAL ARTHROPLASTY Brown DO, Jordan A 04/06/23 Unknown Shoulder R FDA Start: 04-06-2023 SHOULDER TOTAL ARTHROPLASTY Brown DO, Jordan A 04/06/23 Unknown Shoulder R FDA Start: 04-06-2023 SHOULDER TOTAL ARTHROPLASTY Brown DO, Jordan A 04/06/23 Unknown Shoulder R FDA Start: 04-06-2023 SHOULDER TOTAL ARTHROPLASTY Brown DO, Jordan A 04/06/23 Unknown Shoulder R FDA Start: 04-06-2023 SHOULDER TOTAL ARTHROPLASTY Brown DO, Jordan A 04/06/23 Unknown Shoulder R FDA Start: 04-06-2023 SHOULDER TOTAL ARTHROPLASTY Brown DO, Jordan A 04/06/23 Unknown Shoulder R FDA Start: 04-06-2023 SHOULDER TOTAL ARTHROPLASTY Brown DO, Jordan A 04/06/23 Unknown Shoulder R FDA Start: 04-06-2023 SHOULDER TOTAL ARTHROPLASTY Brown DO, Jordan A 04/06/23 Unknown Shoulder R FDA Start: 04-06-2023 SHOULDER TOTAL ARTHROPLASTY Brown DO, Jordan A 04/06/23 Unknown Shoulder R FDA Start: 04-06-2023 SHOULDER TOTAL ARTHROPLASTY Brown DO, Jordan A 04/06/23 Unknown Shoulder R FDA Start: 04-06-2023 SHOULDER TOTAL ARTHROPLASTY Brown DO, Jordan A 04/06/23 Unknown Shoulder R FDA Start: 04-06-2023 SHOULDER TOTAL ARTHROPLASTY Brown DO, Jordan A 04/06/23 Unknown Shoulder R FDA Start: 04-06-2023 Immunizations Immunization Date Immunization Notes Care Provider Angélica kwon 03-22-2012 tetanus and diphther ia toxoids, adsorbed, preservative free, for adult use (5 Lf of tetanus toxoid and 2 Lf of diphtheria toxoid) John Symone Other [facility] Medications Current Medications Medication Drug Class(es) Dates Sig (Normalized) Sig (Original) acetaminophen 325 mg / HYDROcodone bitartrate 5 mg oral tablet (3 sources) Opioid Agonist Start: 06-30-2023 take 1 tablet by mouth three times daily as needed HYDROcodone-aceta minophen ([place]) 5-325 MG tablet TAKE 1 TABLET BY MOUTH 3 TIMES A DAY NEEDED FOR PAIN*MUS LAST 30 DAYS 0 06/30/2023 Active acetaminophen 325 mg / oxyCODONE hydrochloride 5 mg oral tablet (4 sources) Opioid Agonist Start: 04-06-2023 Percocet 5 mg-325 mg oral tablet See Instructions, 40 tab(s), Refill(s) 0, 1-2 tab(s) Oral q4hr, [facility]/pharmacy #[id number], 160, cm, 03/25/23 6:16:00 EDT, Height/Length Dosing, 73.5, kg, 03/25/23 6:16:00 EDT, Weight Dosing Start Date: 04/06/23 Status: Ordered Start: 06-30-2018 End: 09-27-2023 take 1 tablet by mouth three times daily Percocet 5 mg-325 mg oral tablet 1 tab(s), Oral, TID, Refill(s) 0, Pain Start Date: 03/24/23 Status: Ordered 24 hr buPROPion hydrochlorid e 300 mg extended release oral tablet (20 sources) Aminoketone Start: 09-22-2023 Bupropion Hcl Active 0 .ROUTE .COMPLEX 90 September 22, 2023 12:30pm TAKE 1 TABLET DAILY IN THE MORNING Start: 03-26-2023 buPROPion XL ( Wellbutrin XL) 300 MG 24 hr tablet Start: 03-24-2023 take 1 tablet by anne th twice daily Wellbutrin XL 300 mg/24 hours Tab-ER 300 mg = 1 tab(s), Oral, BID, Refills(s) 0, Depression Start Date: 03/24/23 Status: Ordered Start: 06-30-2018 End: 09-27-2023 take 300 mg by mouth once daily Bupropion Hcl Disconti nued 300 MG PO Daily September 22, 2023 12:00am September 22, 2023 12:31pm take 1 tablet by anne th twice daily in the morning buPROPion HCl ER (XL) 300 MG 1 tablet in the morning Orally twice daily for 90 days Active take 1 tablet by anne th every twenty-four hours buPROPion HCl ER (XL) 150 MG 1 tablet in the morning Orally Once a day for 30 Active celecoxib 100 mg oral capsule (2 sources) Nonsteroidal Anti-inflammatory Drug Start: 04-06-2023 take 1 capsule by mouth twice daily as needed for pain CeleBREX 100 mg Cap 100 mg = 1 cap(s), Oral, BID, PRN for pain, # 60 cap(s), Refills(s) 0, Pharmacy: [facility]/pharmacy #[id number], 160, cm, 03/25/23 6:16:00 EDT, Height/Length Dosing, 73.5, kg, 03/25/23 6:16:00 EDT, Weight Dosing Start Date: 04/06/23 Status: Ordered cephalexin 500 mg oral capsule (1 source) Cephalosporin Antibacterial Start: 04-06-2023 End: 04-13-2023 take 1 capsule by mouth every eight hours Keflex 500 mg Cap 500 mg = 1 cap(s), Oral, q8hr, X 7 day(s), # 21 cap(s), Refills(s) 0, Pharmacy: [facility]/pharmacy #[id number], 160, cm, 03/25/23 6:16:00 EDT, Height/Length Dosing, 73.5, kg, 03/25/23 6:16:00 EDT, Weight Dosing Start Date: 04/06/23 Stop Date: 04/13/23 Status: Ordered citalopram 10 mg oral tablet (12 sources) Serotonin Reuptake Inhibitor Start: 08-17-2023 take 1 tablet by mouth every twenty-four hours Citalopram Hydrobromide 10 MG 1 tablet Orally Once a day for 90 days Aug, Active Start: 06-30-2018 End: 09-27-2023 take 20 mg by mouth once daily Citalopram Discontinued 20 MG PO Daily June 30, 2018 1:00am September 27, 2023 2:50pm take 1 tablet by anne th every twenty-four hours Citalopram Hydrobromide 10 MG 1 tablet Orally Once a day Active docusate sodium 100 mg oral capsule (2 sources) Start: 04-06-2023 take 1 capsule by mouth twice daily as needed for constipation Colace 100 mg Cap 100 mg = 1 cap(s), Oral, BID, PRN for constipation, # 20 cap(s), Refills(s) 0, Pharmacy: [facility]/pharmacy #[id number], 160, cm, 03/25/23 6:16:00 EDT, Height/Length Dosing, 73.5, kg, 03/25/23 6:16:00 EDT, Weight Dosing Start Date: 04/06/23 Status: Ordered leflunomide 10 mg oral tablet (20 sources) Antirheumatic Agent Start: 09-27-2023 take 1 tablet by mouth once daily Leflunomide (Arava) 10 mg tablet Active 10 MG PO Daily September 27, 2023 12:00am Start: 06-30-2018 End: 09-27-2023 take 1 tablet by mouth once daily Arava 10 mg oral tablet 10 mg = 1 tab(s), Oral, Daily, Refills(s) 0, Arthritis Start Date: 03/24/23 Status: Ordered lisinopril 5 mg oral tablet (20 sources) Angiotensin Converting Enzyme Inhibitor Start: 09-27-2023 take 5 mg by mouth once daily Lisinopril Active 5 MG PO Daily September 27, 2023 12:00am Start: 04-07-2023 End: 04-07-2023 lisinopril 5 mg Tab 5 mg = 1 tab(s), Tab, Oral, Start date 04/07/23 9:00:00 AM EDT, 04/06/23 9:58:00 EDT Start Date: 04/07/23 Stop Date: 04/07/23 Status: Completed Start: 11-09-2022 take 1 tablet by anne th once daily lisinopril 5 mg Tab 5 mg = 1 tab(s), Oral, Daily, Refills(s) 0, High blood pressure Start Date: 03/24/23 Status: Ordered 24 hr metoprolol succinate 100 mg extended release oral tablet (20 sources) beta-Adrenergic Lisandra Start: 09-27-2023 take 100 mg by mouth once daily Metoprolol Succinate Active 100 MG PO Daily September 27, 2023 12:00am Start: 04-06-2023 End: 04-06-2023 metoprolol 100 mg ER Tab 100 mg = 1 tab(s), Tab-ER, Oral, Start date 04/06/23 9:00:00 PM EDT, 04/06/23 9:58:00 EDT Start Date: 04/06/23 Stop Date: 04/06/23 Status: Completed Start: 11-09-2022 take 1 tablet by anne th at bedtime metoprolol 100 mg ER Tab 100 mg = 1 tab(s), Oral, Bedtime, Refills(s) 0 Start Date: 04/06/23 Status: Ordered omeprazole 40 mg delayed release oral capsule (20 sources) Proton Pump Inhibitor Start: 09-27-2023 take 40 mg by mouth once daily Omeprazole Active 40 MG PO Daily September 27, 2023 12:00am Omeprazole 40 MG 1 capsule Orally Once a day, on empty stomach, followed in 30 minutes by bkfst for 90 days Active pregabalin 150 mg oral capsule (7 sources) Start: 03-24-2023 take 1 capsule by mouth twice daily Lyrica 150 mg Cap 150 mg = 1 cap(s), Oral, BID, # 60 cap(s), Refills(s) 0, Pain Start Date: 03/24/23 Status: Ordered Start: 06-30-2018 End: 09-27-2023 take 1 capsule by mouth three times daily Pregabalin (Lyrica) 75 mg Capsule Discontinued 75 MG PO Three times daily June 30, 2018 1:00am September 27, 2023 2:54pm tiZANidine 4 mg oral capsule (20 sources) Central alpha-2 Adrenergic Agonist Start: 09-27-2023 take 4 mg by mouth every six hours Tizanidine Active 4 MG PO Every 6 hours September 27, 2023 2:53pm Start: 03-24-2023 take 1 tablet by anne th in the morning, then take 3 tablets by mouth at bedtime Zanaflex 4 mg Tab See Instructions, 1 tab(s) Oral in AM 3 tabs at bedtime, Refills(s) 0 Start Date: 03/24/23 Status: Ordered Start: 06-30-2018 End: 09-27-2023 take 4 mg by mouth twice daily Tizanidine Discontinued 4 MG PO Twice daily June 30, 2018 1:00am September 27, 2023 2:54pm take 1 capsule by mo [facility] every six hours tiZANidine HCl 4 MG 1 tablet as needed Oral every 6 hours for 30 Active 24 hr upadacitinib 15 mg extended release oral tablet (20 sources) Start: 09-27-2023 take 15 mg by mouth once daily Upadacitinib Active 15 MG PO Daily September 27, 2023 12:00am Start: 03-24-2023 take 1 tablet by anne once daily Rinvoq 15 mg oral tablet, extended release 15 mg = 1 tab(s), Oral, Daily, Refills(s) 0, Arthritis Start Date: 03/24/23 Status: Ordered Completed/Discontinued Medications Medication Drug Class(es) Dates Sig (Normalized) Sig (Original) alendronic acid 70 mg oral tablet (1 source) Bisphosphonate Start: 06-30-2018 End: 09-27-2023 take 1 tablet by mouth every week Alendronate (Fosamax) 70 mg Tablet Discontinued 70 MG PO every week June 30, 2018 1:00am September 27, 2023 2:54pm aspirin 81 mg delayed release oral tablet (4 sources) Platelet Aggregation Inhibitor, Nonsteroidal Anti-inflammatory Drug Start: 06-30-2018 End: 09-27-2023 take 81 mg by mouth once daily Aspirin Discontinued 81 MG PO Daily June 30, 2018 1:00am September 27, 2023 2:48pm calcium carbonate 1500 mg oral tablet (18 sources) Start: 04-21-2018 take 1 tablet by mouth every twelve hours Calcium 600 MG 1 tablet with meals Orally Twice a day Apr, Not-Taking/PRN Start: 04-21-2018 take 1 tablet by anne th every twelve hours Calcium 600 MG 1 tablet with meals Orally Twice a day Apr, Not-Taking 24 hr dilTIAZem hydrochloride 360 mg extended release oral tablet (1 source) Calcium Channel Lisandra Start: 06-30-2018 End: 09-27-2023 take 360 mg by mouth once daily Diltiazem Hcl Discontinued 360 MG PO Daily June 30, 2018 1:00am September 27, 2023 2:50pm doxycycline hyclate 100 mg oral capsule (5 sources) Tetracycline-cl ass Drug Start: 09-27-2023 End: 09-28-2023 take 100 mg by mouth twice daily Doxycycline Hyclate Discontinued 100 MG PO Twice daily September 27, 2023 12:00am September 28, 2023 3:15pm Start: 06-28-2023 take 1 capsule by mo [facility] every twelve hours Doxycycline Hyclate 100 MG 1 capsule Orally Twice a day for 5 days Jun, Active Start: 07-06-2018 End: 09-27-2023 take 100 mg by mouth twice daily Doxycycline Hyclate Discontinued 100 MG PO Twice daily 10 July 06, 2018 1:00am September 27, 2023 2:50pm ibuprofen 800 mg oral tablet (1 source) Nonsteroidal Anti-inflammatory Drug Start: 07-06-2018 End: 09-27-2023 take 800 mg by mouth three times daily Ibuprofen Discontinued 800 MG PO Three times daily 60 July 06, 2018 1:00am September 27, 2023 2:50pm phentermine hydrochloride 37.5 mg oral capsule (20 sources) Sympathomimetic Amine Anorectic Start: 09-02-2023 End: 09-27-2023 take 37.5 mg by mouth once daily 30 minutes after breakfast Phentermine Discontinued 37.5 MG PO Daily September 02, 2023 4:19pm September 02, 2023 4:44pm must administer 30 minutes before or 1-2 hours after breakfast Start: 01-12-2023 take 1 tablet by anne once daily Phentermine HCl 37.5 MG take 1 tablet by mouth once daily for 30 Jan, Active Start: 11-09-2022 take 1 tablet by anne every twenty-four hours Adipex-P 37.5 MG 1 tablet Orally Once a day for 30 days Dec, Active Start: 07-26-2022 take 1 tablet by anne every twenty-four hours Adipex-P 37.5 MG 1 tablet Orally Once a day for 30 days Jul, Active traZODone hydrochloride 100 mg oral tablet (1 source) Serotonin Reuptake Inhibitor Start: 06-30-2018 End: 09-27-2023 take 50 mg by mouth once daily at bedtime Trazodone Discontinued 50 MG PO Daily at bedtime June 30, 2018 1:00am September 27, 2023 2:54pm valACYclovir 1000 mg oral tablet (20 sources) Herpesvirus Nucleoside Analog DNA Polymerase Inhibitor, Herpes Simplex Virus Nucleoside Analog DNA Polymerase Inhibitor, Herpes Zoster Virus Nucleoside Analog DNA Polymerase Inhibitor Start: 09-27-2023 End: 09-28-2023 take 2000 mg by mouth twice daily Valacyclovir Discontinued 2000 MG PO Twice daily September 27, 2023 12:00am September 28, 2023 3:15pm Start: 03-31-2023 valACYclovir ( Valtrex) 1 g tablet Take 2,000 mg by mouth in the morning and 2,000 mg before bedtime. 0 03/31/2023 Active take 2 tablets by mo uth every twelve hours valACYclovir HCl 1 GM 2 tablets Orally Twice a day Active take 2 tablets by mo uth every twelve hours valACYclovir HCl 1 GM 2 tablets Orally Twice a day Active take 1 tablet by anne th every twelve hours valACYclovir HCl 1 GM 1 tablet Orally Twice a day Active Payers Date Payer Category Payer [facility] [id number] 2021 Unknown [id number] 2020 Medicare MEDICARE MEDICAR E PART B [id number] 2020-[place] [address] Medicare [id number] 2017 Unknown [id number] 1960 Unknown [id number] 2.16.840.1.596553.3.579.2. 647 1960 Unknown [id number] 2.16.840.1.916934.3.579.2. 647 1960 Unknown [id number] 2.16.840.1.464881.3.579.2. 593 1960 Unknown [id number] 2.16.840.1.779363.3.579.2. 593 1960 Unknown [id number] 2.16.840.1.308795.3.579.2. 593 1960 Unknown [id number] 2.16.840.1.922962.3.579.2. 593 1960 Unknown [id number] 2.16.840.1.355098.3.579.2. 593 1960 Unknown [id number] 2.16.840.1.463782.3.579.2. 593 1960 Unknown [id number] 2.16.840.1.513014.3.579.2. 593 1960 Unknown [id number] 2.16.840.1.056553.3.579.2. 593 1960 Unknown [id number] 2.16.840.1.997982.3.579.2. 593 1960 Unknown [id number] 2.16.840.1.228191.3.579.2. 593 1960 Unknown [id number] 2.16.840.1.332060.3.579.2. 593 1960 Unknown [id number] 2.16.840.1.895052.3.579.2. 593 1960 Unknown [id number] 2.16.840.1.469208.3.579.2. 593 1960 Unknown [id number] 2.16.840.1.637720.3.579.2. 593 1960 Unknown [id number] 2.16.840.1.779032.3.579.2. 593 1960 Unknown [id number] 2.16.840.1.849443.3.579.2. 593 1960 Unknown [id number] 2.16.840.1.821658.3.579.2. 593 1960 Unknown [id number] 2.16.840.1.535539.3.579.2. 727 1960 Unknown [id number] 2.16.840.1.324698.3.579.2. 727 1960 Unknown [id number] 2.16.840.1.956568.3.579.2. 727 1960 Unknown [id number] 2.16.840.1.144170.3.579.2. 1259 1960 Unknown [id number] 2.16.840.1.875404.3.579.2. 9 1960 Unknown [id number] 2.16.840.1.068375.3.579.2. 9 1960 Unknown [id number] 2.16.840.1.272475.3.579.2. 9 1960 Unknown [id number] 2.16.840.1.415246.3.579.2. 9 1960 Unknown [id number] 2.16.840.1.803718.3.579.2. 9 1960 Unknown [id number] 2.16.840.1.202245.3.579.2. 9 1960 Unknown [id number] 2.16.840.1.243312.3.579.2. 9 1960 Unknown [id number] 2.16.840.1.443926.3.579.2. 1258 1960 Unknown [id number] 2.16.840.1.999968.3.579.2. 1258 1960 Unknown [id number] 2.16.840.1.530709.3.579.2. 9 1959 Medicare [id number] 1959 Self-pay 1959 Unknown [id number] 1959 Unknown [id number] Plan of Treatment Date Care Activity Detail Author Start: 10-04-2023 End: 10-04-2023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 mg/dL 8.5-10.1 [facility] Chloride [Moles/Vol] 106 mmol/L 98-107 [facility] Cholesterol [Mass/Vol] 246 mg/dL <=200 [facility] Cholesterol in HDL [Mass/Vol] 74 mg/dL 40-60 [facility] Comment on above: > or =60 mg/dl - LOW CARDIOVASCULAR RISK<40 mg/dl - HIGH CARDIOVASCULAR RISK CO2 [Moles/Vol] 25.5 mmol/L 21.0-32.0 [facility] Creatinine [Mass/Vol] 0.96 mg/dL 0.55-1.02 [facility] GFR/1.73 sq M.predicted MDRD (S/P/Bld) [Vol rate/Area] mL/min/{1.73_m2} >=60 [facility] Glucose [Mass/Vol] 86 mg/dL 74-106 [facility] Potassium [Moles/Vol] 3.8 mmol/L 3.5-5.1 [facility] Protein [Mass/Vol] 7.1 g/dL 6.4-8.2 [facility] Sodium [Moles/Vol] 142 mmol/L 136-145 [facility] Triglyceride [Mass/Vol] 101 mg/dL <=150 [facility] TSH Qn 1.531 m[IU]/L 0.358-3.740 [facility] Urea nitrogen [Mass/Vol] 20.0 mg/dL 7.0-18.0 [facility] Urea nitrogen/Creatinine [Mass ratio] 20.8 mg/mg [facility] Laboratory - Hematology and Cell countson 08-30-2023 ESR (Bld) [Velocity] 16 mm/h <=30 [facility] Immature granulocytes/100 WBC (Bld) 0.3 % 0.0-0.5 [facility] Leukocytes [#/volume] correc fito for nucleated erythrocytes in Blood by Automated counon 08-30-2023 WBC corrected for nucl RBC Auto (Bld) [#/Vol] 3.8 10 3/uL 4.0-11.0 [facility] Lymphocytes Auto (Bld) [#/Vo l]on 08-30-2023 Lymphocytes (Bld) [#/Vol] 1.7 10 3/uL 1.2-3.8 [facility] Lymphocytes/100 WBC Auto (Bl d)on 08-30-2023 Lymphocytes/100 WBC (Bld) 44.8 % 20.5-60.0 [facility] MCH Auto (RBC) [Entitic mass ]on 08-30-2023 MCH (RBC) [Entitic mass] 31.1 pg 26.7-34.0 [facility] MCHC Auto (RBC) [Mass/Vol]on 08-30-2023 MCHC (RBC) [Mass/Vol] 31.6 g/dL 29.9-35.2 [facility] MCV Auto (RBC) [Entitic vol] on 08-30-2023 MCV (RBC) [Entitic vol] 98.3 fL 81.0-99.0 [facility] Monocytes Auto (Bld) [#/Vol] on 08-30-2023 Monocytes (Bld) [#/Vol] 0.5 10 3/uL 0.3-0.8 [facility] Monocytes/100 WBC Auto (Bld) on 08-30-2023 Monocytes/100 WBC (Bld) 14.1 % 1.7-12.0 [facility] Neutrophils Auto (Bld) [#/Vo l]on 08-30-2023 Neutrophils (Bld) [#/Vol] 1.4 10 3/uL 1.4-6.5 [facility] Neutrophils/100 WBC Auto (Bl d)on 08-30-2023 Neutrophils/100 WBC (Bld) 35.8 % 43.0-75.0 [facility] No Panel Informationon 08-30 Eosinophils # (Auto) 0.2 10 3/uL 0.0-0.7 [facility] Immature Granulocyte # (Auto) 0.01 10 3/uL 0.00-0.03 [facility] Platelet mean volume Auto (B ld) [Entitic vol]on 08-30-2023 Platelet mean volume (Bld) [Entitic vol] 9.1 fL 9.5-13.5 [facility] Platelets Auto (Bld) [#/Vol] on 08-30-2023 Platelets (Bld) [#/Vol] 181 10 3/uL 150-450 [facility] RBC Auto (Bld) [#/Vol]on RBC (Bld) [#/Vol] 4.02 10 6/uL 4.20-5.40 [facility] Serum or plasma albumin/glob ulin mass ratioon 08-30-2023 Albumin/Globulin [Mass ratio] 1.1 {ratio} [facility] Serum or plasma anion gap de terminationon 08-30-2023 Anion gap [Moles/Vol] 14.3 mmol/[facility] Serum or plasma total choles terol/high density lipoprotein (HDL) cholesterol mass albina 08-30-2023 Cholesterol.total/Cho lesterol in HDL [Mass ratio] 3.3 {ratio} [facility] Comment on above: 3.3 - 4.4 LOW RISK4. 4 - 7.1 AVERAGE RISK7.1 - 11.0 MODERATE RISK>11.0 HIGH RISK XR Shoulder - right 2 Viewso n [...] No obvious fractures at the coracoid process. [facility] Should[facility] - right 2 Viewso n 08-18-2023 Radiology Study observation (narrative) [facility] IntraOperative Documentson 1 IntraOperative Documents [id number]# 1.00CD:127 Normal [facility] Auto Diffon 04-07-2023 Basophils/100 WBC (Bld) 0.2 % Normal 0.0-2.0 [facility] Comment on above: Order Comment: Order Added by Discern Expert. Performed By: #### 2 246537, 5258190, 9323892, 4535875, 02530517, 5512038 #### [facility] Laboratory [address] [place] [address] Basophils/Leukocytes Auto (Bld) [Pure # fraction] 0.0 E9/L Normal 0.0-0.2 [facility] Comment on above: Order Comment: Order Added by Discern Expert. Performed By: #### 2 535175, 0434935, 9807370, 1979060, 14920983, 2789809 #### [facility] Laboratory [address] [place] [address] Eosinophils/100 WBC (Bld) 0.0 % Normal 0.0-8.0 [facility] Comment on above: Order Comment: Order Added by Discern Expert. Performed By: #### 2 940983, 1253023, 9659574, 0923272, 73852712, 2246367 #### [facility] Laboratory [address] [place] [address] Eosinophils/Leukocyte s Auto (Bld) [Pure # fraction] 0.0 E9/L Normal 0.0-0.5 [facility] Comment on above: Order Comment: Order Added by Discern Expert. Performed By: #### 2 964368, 1444454, 9003091, 4303681, 17380242, 3035186 #### [facility] Laboratory [address] [place] [address] Lymphocytes/100 WBC (Bld) 7.9 % Low 14.0-50.0 [facility] Comment on above: Order Comment: Order Added by Discern Expert. Performed By: #### 2 863045, 5523913, 8216003, 8629489, 74827047, 8458671 #### [facility] Laboratory [address] [place] [address] Lymphocytes/Leukocyte s Auto (Bld) [Pure # fraction] 0.8 E9/L Low 1.0-4.0 [facility] Comment on above: Order Comment: Order Added by Kannan Expert. Performed By: #### 2 946671, 7583675, 5008479, 5808865, 17109642, 7312246 #### [facility] [address] [place] [address] Monocytes/100 WBC (Bld) 14.0 % Normal 4.0-14.0 [facility] Comment on above: Order Comment: Order Added by Kannan Expert. Performed By: #### 2 438847, 3151858, 3611946, 4151637, 23402718, 2257579 #### [facility] [address] [place] [address] Monocytes/Leukocytes Auto (Bld) [Pure # fraction] 1.3 E9/L High 0.2-1.0 [facility] Comment on above: Order Comment: Order Added by Kannan Expert. Performed By: #### 2 303455, 7184344, 4983174, 9260275, 28241281, 6242626 #### [facility] [address] [place] [address] Neutrophils/100 WBC (Bld) 77.9 % High 36.0-75.0 [facility] Comment on above: Order Comment: Order Added by Discern Expert. Performed By: #### 2 251712, 8243179, 2408324, 8120618, 41119057, 2885661 #### [facility] Laboratory [address] [place] [address] Neutrophils/Leukocyte s Auto (Bld) [Pure # fraction] 7.5 E9/L Normal 2.0-7.5 [facility] Comment on above: Order Comment: Order Added by Discern Expert. Performed By: #### 2 634720, 1199720, 3080956, 7922933, 48909839, 2653132 #### [facility] [address] [place] [address] BUNon 04-07-2023 Urea nitrogen [Mass/Vol] 20 mg/dL Normal 5-21 [facility] Comment on above: Performed By: #### 2 181964, 9434911, 9314519, 6567350, 92072483, 5910883 #### [facility] Laboratory [address] [place] [address] CBC w/ Auto Diffon Erythrocyte distribution width (RBC) [Ratio] 14.6 % High 10.9-14.2 [facility] Comment on above: Performed By: #### 2 331166, 7924836, 5205234, 0037751, 87598078, 9892287 #### [facility] Laboratory [address] [place] [address] Hematocrit (Bld) [Volume fraction] 29.7 % Low 34.0-46.0 [facility] Comment on above: Performed By: #### 2 009327, 2940813, 8034772, 6529127, 02825930, 4555362 #### [facility] Laboratory [address] [place] [address] Hemoglobin (Bld) [Mass/Vol] 10.0 g/dL Low 12.0-16.0 [facility] Comment on above: Performed By: #### 2 027581, 1019913, 5423231, 9447818, 09310967, 0495743 #### [facility] Laboratory [address] [place] [address] MCH (RBC) [Entitic mass] 32.5 pg Normal 27.0-34.0 [facility] Comment on above: Performed By: #### 2 454925, 9573749, 2094497, 8778688, 29491449, 5939884 #### [facility] Laboratory [address] [place] [address] MCHC (RBC) [Mass/Vol] 33.6 g/dL Normal 31.4-36.0 [facility] Comment on above: Performed By: #### 2 576712, 7439056, 7543200, 9498041, 14951287, 1952386 #### [facility] [address] [place] [address] MCV (RBC) [Entitic vol] 96.7 fL Normal 80.0-100.0 [facility] Comment on above: Performed By: #### 2 021925, 8179147, 0588164, 0624532, 17630303, 5757442 #### [facility] [address] [place] [address] Platelet mean volume (Bld) [Entitic vol] 7.1 fL Normal 6.4-10.8 [facility] Comment on above: Performed By: #### 2 294620, 7107136, 7448867, 6351831, 33232826, 2243160 #### [facility] [address] [place] [address] Platelets (Bld) [#/Vol] 215.0 E9/L Normal 150.0-500.0 [facility] Comment on above: Performed By: #### 2 280872, 0457586, 2668224, 4435805, 22640953, 9238497 #### [facility] [address] [place] [address] RBC (Bld) [#/Vol] 3.1 E12/L Low 4.3-5.9 [facility] Comment on above: Performed By: #### 2 971926, 7017224, 4797424, 7321941, 86792662, 2311528 #### [facility] Laboratory [address] [place] [address] WBC corrected for nucl RBC Auto (Bld) [#/Vol] 9.6 E9/L Normal 4.0-11.0 [facility] Comment on above: Performed By: #### 2 174974, 8995241, 8081278, 1265232, 29014032, 6887555 #### [facility] Laboratory [address] [place] [address] CHEMISTRYOrdered By: SYSTEM SYSTEM on 04-07-2023 Anion gap [Moles/Vol] 6 mmol/L Normal 6 - 16 mEq/L F C Remisol Chloride [Moles/Vol] 118 mmol/L High 101 - 1 11 mmol/L FT Remisol CO2 [Moles/Vol] 23 mmol/L Normal 21 - 31 mmol/L FT Rem[facility] Creatinine [Mass/Vol] 0.9 mg/dL Normal 0.5 - 1.3 mg/dL [facility]isol GFR/1.73 sq M.predicted among non-blacks MDRD (S/P/Bld) [Vol rate/Area] 72 mL/min/1.73 m2 Normal >=59mL/min/1 .73 m2 [facility] Chem S Comment on above: Interpretive Data: C hronic kidney disease could be indicated at eGFR's of less than 60 mL/min/1.73m2. Kidney failure is indicated at less than 15 mL/min/1.73m2. Potassium [Moles/Vol] 4.0 mmol/L Normal 3.5 - 5.3 mmol/L FT Remisol Sodium [Moles/Vol] 143 mmol/L Normal 135 - 145 mmol/L FT Remisol Urea nitrogen [Mass/Vol] 20 mg/dL Normal 5 - 21 mg/dL [facility] Remisol Consent for Anesthesiaon Consent for Anesthesia [id number] .00CD:127 Normal [facility] Creatinineon 04-07-2023 Creatinine [Mass/Vol] 0.9 mg/dL Normal 0.5-1.3 [facility] Comment on above: Performed By: #### 2 192184, 1933898, 9376972, 5515282, 45589990, 7180937 ####[facility] [address] Rodriguezuniversity [facility] [place] [address] Discharge Instructionson Discharge Instructions [id number]# 1.00CD:127 Normal [facility] Discharge Note-Nursingon Discharge Note-Nursing RADHA ZAIDI :1960 [...] Pending Diagnostic Test Results None Pharmacy Information [facility]- [facility] New Follow Up Appointments after Discharge Follow Up with Jordan Yuan When: Where: [address] [place] [address]- Business (1) Follow Up with JOHN ASHBY When: In 0 days Where: [address] [facility], [place] [address]- Business (1) Medications What How Much When Instructions Next Dose Changed acetaminophen-oxycodo ne (Percocet 5 mg-325 mg oral tablet) See instructions 1-2 tab(s) Oral q4hr Pickup at [facility]/pharmacy #6177 Next dose due after 10am Unchanged buPROPion (Wellbutrin XL 300 mg/ 24 hours Tab-ER) 1 Tablets By Mouth 2 times a day 04/07/23 @ 9pm Unchanged celecoxib (CeleBREX 100 mg Cap) 1 Capsules By Mouth 2 times a day as needed for for pain Pickup at [facility]/pharmacy #6177 04/07/23 @ 9pm Unchanged cephalexin (Keflex 500 mg Cap) 1 Capsules By Mouth Every 8 hours Duration: 7 Days Pickup at [facility]/pharmacy #6177 04/07/23 @ 2pm and bedtime Unchanged docusate (Colace 100 mg Cap) 1 Capsules By Mouth 2 times a day as needed for for constipation Pickup at [facility]/pharmacy #6177 04/07/23 @ 9pm Unchanged leflunomide (Arava [...] Every day 04/08/23 @ 9am Pharmacy Information [facility]/pharmacy #6177: [address] [facility] [place] [id number] [phone] Test Results CBC BMP WBC: 9.6 E9/L [...] Lateralized/ 24, Shoulder Implant 04/06/2023 [facility] [place] humeral Stem Size 9, Shoulder Implant 04/06/2023 [employer] SutureCap, 36 neutral, shoulder Implant 04/06/2023 [facility] Humeral Insert, small, 36, +6, Shoulder (more content not included)... Normal [facility] HEMATOLOGYOrdered By: SYSTEM SYSTEM on 04-07-2023 [...] - 7.5 E9/L [facility] HemeAutoSS HEMATOLOGYOrdered By: Alliso n Isabel on 04-07-2023 Erythrocyte distribution width (RBC) [Ratio] [...] Inpatient Clinical Summaryon 04-07-2023 Inpatient Clinical Summary [place] [address] Clinical Summary Person Information: Name: RADHA ZAIDI Age: 62 Years : 1960 Sex: Female PCP: JOHN ASHBY DO Marital Status: Phone: [phone] Race: White Ethnicity: Non- or Language: Indonesian Visit Id: Visit Reason: OA RIGHT SHOULDER Speciality: Acuity: Enc Type: Observation Med Service: Medical Arrival: 04/06/2023 06:09:55 Discharge: Dispo Type: Address: [address] [place] [address] [address] [place] [id number] Provider Notes: Patient: RADHA ZAIDI Age: 62 [...] Follow up: With: Address: When: Jordan Yuan [address] [place] [address] Business (1) 04/19/2023 2:15 PM With: Address: When: JOHN ASHBY [address] [place], [place] [phone] Business (1) Patient Education Information: Levy Yuan. - Shoulder Replacement (Custom) Normal [facility] Inpatient Patient Summaryon 04-07-2023 Inpatient Patient Summary [address] [address] Patient Discharge Instructions PERSON INFORMATION [...] Follow up: With: Address: When: Jordan Yuan [address] [place] [phone] Business (1) 04/19/2023 2:15 PM With: Address: When: JOHN ASHBY [address] [place], [place] [phone] Business (1) In the event that this physician does not participate in your insurance network, please consult with your insurance company to find a nearby participating provider. Comment: IDYAN CHERYLL J, have received the attached patient education materials/instruction s and have verbalized understanding: Patient Signature Date Clinican/Nurse Signature Date HERE ARE THE MEDICATION CHANGES THAT OCCURRED DURING YOUR HOSPITAL STAY Medications to Continue Taking That Have Changed [facility], [address], [place] [id number], [phone] START: acetaminophen-oxycodo ne (Percocet 5 mg-325 mg oral tablet) 1-2 tab(s) Oral q4hr. Refills: 0. Last Dose: ____Next Dose: ____ STOP: acetaminophen-oxycodo ne (Percocet 5 mg-325 mg oral tablet) 1 Tablets By Mouth 3 times a day. Medications to Continue with No Changes [facility], [address], [place] [id number], [phone] celecoxib (CeleBREX 100 mg Cap) 1 Capsules [...] Tablets By Mouth every day. Pharmacy Information: ELSIE [facility] ([phone] (more content not included)... Normal [facility] IntraOperative Documentson 0 04-07-2023 IntraOperative Documents [id number] .00CD:127 Normal [facility] IntraOperative Documents [id number] .00CD:127 Normal [facility] Lyteson 04-07-2023 Anion gap [Moles/Vol] 6 mmol/L Normal 6-16 [facility] Comment on above: Performed By: #### 2 553312, 8255162, 4949277, 6622589, 36528988, 6504241 ####[facility] [address] [place] [address] Chloride [Moles/Vol] 118 mmol/L High 101-111 [facility] Comment on above: Performed By: #### 2 092397, 9552224, 3092853, 0168330, 80960976, 3338766 ####[facility] [address] [place] [address] CO2 [Moles/Vol] 23 mmol/L Normal 21-31 [facility] Comment on above: Performed By: #### 2 926384, 4601873, 4238314, 6939331, 23088188, 8478653 ####[facility] [address] [place] [address] Potassium [Moles/Vol] 4.0 mmol/L Normal 3.5-5.3 [facility] Comment on above: Performed By: #### 2 677647, 7778376, 6631780, 8062028, 93956436, 3177920 ####[facility] [address] [place] [address] Sodium [Moles/Vol] 143 mmol/L Normal 135-145 [facility] Comment on above: Performed By: #### 2 499878, 6849099, 0722081, 9837533, 67457909, 4944078 ####[facility] [address] [place] [address] Main OR Intraoperative Recor don 04-07-2023 Main OR Intraoperative Record IntraOp Document Type FT Summary Primary Physician: Jordan Yuan DO Finalized Date/Time: 04/07/23 14:30:58 Pt. Name: DYAN RADHA Carrillo/Sex: 1960 Female Med Rec #: [id number] Physician: Jordan Yuan DO Financial #: [id number] Pt. Type: A Room/Bed: [place] [address] Admit/Disch: 04/06/23 06:09:55 - 04/07/23 09:30:00 Institution: Case Times FT Entry 1 Patient Times In Room 04/06/23 09:32:00 Out Room 04/06/23 11:36:00 Procedure Times Start 04/06/23 10:14:00 Stop 04/06/23 11:30:00 Anesthesia Times Start 04/06/23 09:32:00 Stop 04/06/23 11:36:00 Block Timeout w04/06/23 08:24:00 Anesthesia Last Modified By: Susi HARO, Dennis Curry 04/06/23 11:35:46 General Comments: Right shoulder block performed by under ultrasound guidance. Chelsea, ESTRELLITA to assist with the block. Block timeout at 0824. Patient's heartrate-78, SPo2- 100% on room air. patient tolerated block well. Block start at 0833. Block end at 0836. Patient transported via cart back to [facility] jasper 5 and placed on SP02 monitor by ESTRELLITA De La Fuente. 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 Last Modified By: Wanda BATTERY ASSEMBLER, Sharmaine Goldman RN, Dennis Goldman RN, Dennis Curry 04/07/23 14:28:51 04/06/23 11:35:47 04/06/23 11:35:47 Entry 4 Entry 5 Entry 6 Case Attendee Valerie BATTERY ASSEMBLER, Jena Taylor CST, John Role Performed Scrub - Primary Scrub - Primary BATTERY ASSEMBLER/SA Time In 04/06/23 09:32:00 04/06/23 09:32:00 04/06/23 09:32:00 Time Out 04/06/23 11:20:00 04/06/23 11:36:00 04/06/23 11:36:00 Procedure SHOULDER TOTAL SHOULDER TOTAL SHOULDER TOTAL ARTHROPLASTY(Right) ARTHROPLASTY(Right) ARTHROPLASTY(Right) Comments in orientation Last Modified By: Susi RN, Dennis Goldman RN, Dennis Downs RN 04/06/23 11:35:47 04/06/23 11:35:47 04/06/23 11:35:47 Entry 7 Entry 8 Case Attendee Andie Fuentes Jennifer E Role Performed Staff - Other Staff - Other Time In 04/06/23 09:32:00 04/06/23 09:32:00 Time Out 04/06/23 11:36:00 04/06/23 11:13:00 Procedure SHOULDER TOTAL SHOULDER TOTAL ARTHROPLASTY(Right) ARTHROPLASTY(Right) Comments scrubbed in, retractor scrubbed in, retractor munoz munoz Last Modified By: Susi HARO, DennisDennis Moncada RN 04/06/23 11:35:47 04/06/23 11:35:47 General Comments: Gunner Jaramillo, Jese rep., present in the OR for surgical [...] Yuan DO, Krupp RN, Dennis Curry, Valerie BATTERY ASSEMBLER, Johnathan Hernandez Sydney A, Mark MARI, Alfredo Lopez Jessica D, Francis, Jennifer E [...] traffic control (more content not included)... Normal [facility] Main OR PACU I Recordon 03-12 Main OR PACU I Record PACU Phase I Docum ent Type FT Summary Primary Physician: Jordan Yuan DO Finalized Date/Time: 04/07/23 08:05:19 Pt. Name: RADHA ZAIDI Levy Carrillo/Sex: 1960 Female Med Rec #: [id number] Physician: Jordan Yuan DO Financial #: [id number] Pt. Type: O Room/Bed: [facility]/ Admit/Disch: 04/06/23 06:09:55 - Institution: Case Times [...] 08:04 Cate Gonsales RN 04/07/23 08:05 Normal [facility] Patient Education - Texton 0 04-07-2023 Patient Education - Text [place], [place] [facility] DISCHARGE INSTRUCTIONS: SHOULDER REPLACEMENT [...] persistent vomiting. Jordan Yuan DO [facility] [address] [place] [address] Reviewed: [facility] Preoperative Documentson Preoperative Documents [id number]#1 .00CD:127 Normal [facility] Progress Note-Physicianon Progress Note-Physician Patient: RADHA [...] Pressure 63 mmHg SpO2 94 % Normal [facility] Comment on above: Result Comment: Elec tronically Signed By: Jordan Yuan DO\.br\Date and Time Signed: 04/07/23 07:40 EDT eGFRon 04-07-2023 GFR/1.73 sq M.predicted among non-blacks MDRD (S/P/Bld) [Vol rate/Area] 72 mL/min/1.73 m2 Normal >=59 [facility] Comment on above: Order Comment: Order added by Discern Expert. Result Comment: Plate Mounter dina kidney disease could be indicated at eGFR's of less than 60 mL/min/1.73m2. Kidney failure is indicated at less than 15 mL/min/1.73m2. Performed By: #### 2 [id number], 5915500, 2134611, 9771594, 07838372, 3248058 ####[facility] [address] [place] [address] ABO/Rhon 04-06-2023 ABO/Rh Positive Invalid Interpretation Code [facility] Comment on above: Performed By: #### 1 [id number], 65462910, 80129908, 5580295 ####[facility] [address] [place] [address] ABO/Rh History Checkon 04-06 ABO/Rh History Check Verified Hx Blood Type Normal [facility] Comment on above: Performed By: #### 1 6115785, 91319695, 22393455, 3292536 ####[address] [place] [address] ABSCon 04-06-2023 ABSC Gel Interp Negative Normal [facility] Comment on above: Performed By: #### 1 7867304, 03633982, 51510767, 8482062 ####[address] [address] BLOOD BANKOrdered By: Andra Nunez on 04-06-2023 ABO/Rh Interp Positive Invalid Interpretation Code [facility] BB Subsection ABSC Gel Interp Negative (04/06/23 7:23 AM) Normal [facility] BB Subsection Blood Bank ID#on 04-06-2023 BBID# [id number] Invalid Interpretation Code [facility] Comment on above: Performed By: #### 1 6579386, 18248867, 74361501, 2209939 ####[address] [place] [address] Consent for Treatmenton 03-12 Consent for Treatment [id number] .00CD:127 Normal [facility] H&P Updateon 04-06-2023 H&P Update [id number]#1 .00CD:127 Normal [facility] Insurance Correspondence Off iceon 04-06-2023 Insurance Correspondence Office [id number]# 1.00CD:127 Normal [facility] Main OR Preoperative Recordo n 04-06-2023 Main OR Preoperative Record PreOp Document Type FT Summary Primary Physician: Jordan Yuan DO Finalized Date/Time: 04/06/23 09:32:24 Pt. Name: ZAIDIRADHA/Sex: 1960 Female Med Rec #: [id number] Physician: Jordan Yuan DO Financial #: [id number] Pt. Type: A Room/Bed: Admit/Disch: 04/06/23 06:09:55 - Institution: Case Times [...] By: Dennis Goldman RN 04/06/23 09:32 Normal [facility] Monitor Recordon 04-06-2023 Monitor Record [id number]# 1.00CD:127 Normal [facility] Monitor Record [id number]# 1.00CD:127 [facility] Monitor Record [id number]# 1.00CD:127 [facility] Operative Reporton Operative Report Patient: SHIRA ZAIDISHEYLA Lockett Age: 62 years Sex: Female : 1960 [...] Using maximal sterile barrier technique per current [facility] guidelines including hand hygeine, Guidance (Ultrasound used [...] patient tolerated the procedure as expected. Normal [facility] Comment on above: Result Comment: Elec tronically Signed By: Yanick Rai DO\.br\Date and Time Signed: 04/06/23 08:44 EDT Operative Report Patient: RADHA ZAIDI Age: 62 years Sex: Female : 1960 Associated Diagnoses: None Author: Jordan Yuan DO DATE OF SURGERY: 04/06/2023 SURGEON: Jordan Yuan D.O. GI TECHNICIAN: Anival Flores CFA PREOPERATIVE DIAGNOSIS: Massive rotator cuff tear, right shoulder POSTOPERATIVE DIAGNOSIS: Massive rotator cuff tear, right shoulder OPERATION: Right reverse total shoulder arthroplasty ANESTHESIA: General with a regional block ANESTHESIOLOGIST: Colni Rai DO and Adiel Steinberg CRNA IMPLANTS USED: [employer] Revers System 1. 24 mm 10 degree full augment standard baseplate, 20 mm central post, four peripheral screws measuring 4.5 mm x 28 mm & 32 mm nonlocking, two 5.5 mm x 20 mm locking 2. 36 +4 Glenosphere 3. size +6 humeral insert 4. Revers [place] size 9 stem with 36 (neutral) Suturecup OPERATIVE INDICATIONS: Radha is a 62-year-old ewkjl-vjtc-wzxyzvht female who has had persistent right shoulder [...] intraoperative instrumentation were performed with the [email or web address] software. PROCEDURE: The correct operative site was [...] The depth-stop (more content not included)... 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 Family History: Primary malignant neoplasm of prostate Father Acute myocardial infarction Mother Procedure history: Cervical laminectomy (9661853193). Amputation of finger (947124667). Removal of lung, Partial (24471). Open reduction and internal fixation of fracture Leg (919218539). Foot surgery (7744994514). Lumbar discectomy (382269459). Social History Social & Psychosocial Habits Alcohol [...] to auscultation. (more content not included)... Normal [facility] Comment on above: Result Comment: Elec tronically Signed By: Yanick Rai DO\.br\Date and Time Signed: 04/06/23 08:05 EDT Progress Note-Physician Patient: RADHA ZAIDI Age: 62 years Sex: Female : 1960 Associated Diagnoses: None Author: Yanick Rai DO Postoperative Information Postoperative disposition: Postoperative disposition: To PACU. Optimetrix number: Optimetrix number [id number]. Anesthetic utilized: General. Regional: Interscalene Block. Health [...] pain, # 60 cap(s), Refills(s) 0, Pharmacy: [facility]/pharmacy #[id number], 160, cm, 03/25/23 6:16:00 EDT, Height/Length Dos (more content not included)... Normal [facility] Comment on above: Result Comment: Elec tronically Signed By: Yanick Rai DO.br\Date and Time Signed: 04/06/23 11:57 EDT XR Shoulder Complete Righton 04-06-2023 XR [...] mGy = na DAP = na Normal [facility] Consent for Procedure/Surger yon 04-05-2023 Consent for Procedure/Surgery [id number]#1 .00CD:127 Normal [facility] CT Upper Extremity w/o Contr ast [...] DO Transcribed by: DANISHA Technologist: CONSTANTINO Normal [facility] ABO/Rh Retypeon 03-24-2023 ABO/Rh Retype Interp Positive Invalid Interpretation Code [facility] Comment on above: Performed By: #### 1 [id number] ####[facility] [place] [address] BLOOD BANKOrdered By: Andra Longoria on 03-24-2023 ABO/Rh Retype Interp Positive Invalid Interpretation Code [facility] BB Subsection BUNon 03-24-2023 Urea nitrogen [Mass/Vol] 28 mg/dL High 5-21 [facility] Comment on above: Performed By: #### 1 2525353, 7247095, 5956194, 2861373, 9300237, 4302335 ####[facility] [address] [place] [address] CBC w/Indiceson 03-24-2023 Erythrocyte distribution width (RBC) [Ratio] 14.5 % High 10.9-14.2 [facility] Comment on above: Performed By: #### 1 6729790, 3284082, 0257229, 8956985, 8914807, 6610432 ####[facility] [address] [place] [address] Hematocrit (Bld) [Volume fraction] 35.9 % Normal 34.0-46.0 [facility] Comment on above: Performed By: #### 1 3475068, 1003121, 4692947, 1803740, 9922400, 3520262 ####[address] [place] [address] Hemoglobin (Bld) [Mass/Vol] 11.9 g/dL Low 12.0-16.0 [facility] Comment on above: Performed By: #### 1 3886685, 9968076, 9525880, 6920261, 9699273, 4778341 ####[address] [place] [address] MCH (RBC) [Entitic mass] 32.3 pg Normal 27.0-34.0 [facility] Comment on above: Performed By: #### 1 0879042, 0494565, 5053866, 6367573, 5698353, 6233627 ####[facility] [address] [place] [address] MCHC (RBC) [Mass/Vol] 33.1 g/dL Normal 31.4-36.0 [facility] Comment on above: Performed By: #### 1 0533719, 2605949, 3308593, 5202126, 4728057, 7583581 ####[facility] [address] [place] [address] MCV (RBC) [Entitic vol] 97.4 fL Normal 80.0-100.0 [facility] Comment on above: Performed By: #### 1 0537533, 7830485, 9188277, 2875420, 9371780, 9777961 ####[facility] [address] [place] [address] Platelet mean volume (Bld) [Entitic vol] 7.4 fL Normal 6.4-10.8 [facility] Comment on above: Performed By: #### 1 4933852, 0586782, 8528197, 6248707, 7095207, 4629481 ####[facility] [address] [place] [address] Platelets (Bld) [#/Vol] 207.0 E9/L Normal 150.0-500.0 [facility] Comment on above: Performed By: #### 1 1452543, 0257826, 6906494, 4261006, 2873686, 0899142 ####[address] [place] [address] RBC (Bld) [#/Vol] 3.7 E12/L Low 4.3-5.9 [facility] Comment on above: Performed By: #### 1 0209426, 6931333, 6052340, 5662046, 4052609, 1672108 ####[facility] [address] [place] [address] WBC corrected for nucl RBC Auto (Bld) [#/Vol] 3.5 E9/L Low 4.0-11.0 [facility] Comment on above: Performed By: #### 1 4739116, 8228439, 7473812, 3353965, 1762747, 7001841 ####[address] [place] [address] CHEMISTRYOrdered By: SYSTEM SYSTEM on 03-24-2023 Anion gap [Moles/Vol] 12 mmol/L Normal 6 - 16 mEq/L [facility] Remisol Chloride [Moles/Vol] 111 mmol/L Normal 101 - 1 11 mmol/L [facility] Remisol CO2 [Moles/Vol] 20 mmol/L Low 21 - 31 mmol/L [facility] Remisol Creatinine [Mass/Vol] 1.2 mg/dL Normal 0.5 - 1.3 mg/dL [facility] Remisol GFR/1.73 sq M.predicted among non-blacks MDRD (S/P/Bld) [Vol rate/Area] 51 mL/min/1.73 m2 Low >=59mL/min/1 .73 m2 [facility] Chem S Glucose [Mass/Vol] 84 mg/dL Normal 55 - 199 mg/dL [facility] Remisol Potassium [Moles/Vol] 4.2 mmol/L Normal 3.5 - 5.3 mmol/L [facility] Remisol Sodium [Moles/Vol] 139 mmol/L Normal 135 - 145 mmol/L [facility] Remisol Urea nitrogen [Mass/Vol] 28 mg/dL High 5 - 21 mg/dL [facility] Remisol Consent for Treatmenton 03-11 Consent for Treatment [id number]#1 .00CD:127 Normal [facility] Creatinineon 03-24-2023 Creatinine [Mass/Vol] 1.2 mg/dL Normal 0.5-1.3 [facility] Comment on above: Performed By: #### 1 5277173, 8061621, 5645588, 7511769, 0749036, 3136122 ####[facility] [address] [place] [address] Glucoseon 03-24-2023 Glucose [Mass/Vol] 84 mg/dL Normal 55-199 [facility] Comment on above: Performed By: #### 1 0271398, 3821144, 2922314, 7590988, 7270559, 6584437 ####[facility] [address] [place] [address] HEMATOLOGYOrdered By: Anrda Longoria on 03-24-2023 Erythrocyte distribution width (RBC) [Ratio] 14.5 % High 10.9 - 14.2 % [facility] HemeAutoSS Hematocrit (Bld) [Volume fraction] 35.9 % Normal 34.0 - 46.0 % [facility] HemeAutoSS Hemoglobin (Bld) [Mass/Vol] 11.9 g/dL Low 12.0 - 16.0 gm/dL [facility] HemeAutoSS MCH (RBC) [Entitic mass] 32.3 pg Normal 27.0 - 34.0 pg FT HemeAutoSS MCHC (RBC) [Mass/Vol] 33.1 g/dL Normal 31.4 - 36.0 gm/dL FT HemeAutoSS MCV (RBC) [Entitic vol] 97.4 fL Normal 80.0 - 100.0 fL FT HemeAutoSS Platelet mean volume (Bld) [Entitic vol] 7.4 fL Normal 6.4 - 10.8 fL FT HemeAutoSS Platelets (Bld) [#/Vol] 207.0 E9/L Normal 150.0 - 500.0 E9/L FT HemeAutoSS RBC (Bld) [#/Vol] 3.7 E12/L Low 4.3 - 5.9 E12/L FT HemeAutoSS WBC corrected for nucl RBC Auto (Bld) [#/Vol] 3.5 E9/L Low 4.0 - 11.0 E9/L [facility] HemeAutoSS Lyteson 03-24-2023 Anion gap [Moles/Vol] 12 mmol/L Normal 6-16 [facility] Comment on above: Performed By: #### 1 6198579, 6542902, 3416540, 8791508, 1632958, 7610956 ####[facility] [address] [place] [address] Chloride [Moles/Vol] 111 mmol/L Normal 101-111 [facility] Comment on above: Performed By: #### 1 7603166, 9966298, 0997162, 2236630, 2252419, 8804744 ####[facility] [address] [place] [address] CO2 [Moles/Vol] 20 mmol/L Low 21-31 [facility] Comment on above: Performed By: #### 1 6135008, 6237695, 6211755, 9854753, 5980060, 5944217 ####[facility] [address] [place] [address] Potassium [Moles/Vol] 4.2 mmol/L Normal 3.5-5.3 [facility] Comment on above: Performed By: #### 1 1073376, 9568180, 9094693, 6527330, 9914870, 2618833 ####[facility] [address] [place] [address] Sodium [Moles/Vol] 139 mmol/L Normal 135-145 [facility] Comment on above: Performed By: #### 1 8789598, 1431844, 8320407, 7806116, 7023542, 8173333 ####[facility] [address] [place] [address] UA With Cult Reflexon 2022 Bilirubin Ql (U) Negative Normal Negative [facility] Comment on above: Performed By: #### 1 1505313 #### [facility] [address] [place] [address] Clarity (U) CLEAR Normal Clear [facility] Comment on above: Performed By: #### 1 6549133 #### [facility] [address] [place] [address] Color (U) YELLOW Normal Yellow [facility] Comment on above: Performed By: #### 1 8208994 #### [facility] [address] [place] [address] Epithelial cells.squamous LM.HPF (Urine sed) [#/Area] 0-2 Normal 0-2 [facility] Comment on above: Performed By: #### 1 0587378 #### [facility] [address] [place] [address] Fine Granular Casts LM Ql (Urine sed) 0-3 Normal [facility] Comment on above: Performed By: #### 1 1643222 #### [facility] [address] [place] [address] Glucose Test strip (U) [Mass/Vol] Negative Normal Negative [facility] Comment on above: Performed By: #### 1 7973869 #### [facility] [address] [place] [address] Hemoglobin Ql (U) Negative Normal Negative [facility] Comment on above: Performed By: #### 1 3918452 #### [facility] [address] [place] [address] Ketones (U) [Mass/Vol] Negative Normal Negative [facility] Comment on above: Performed By: #### 1 6548316 #### [facility] [address] [place] [address] [place].plasma/Lithiu m.RBC (Bld) [Mass ratio] 0-3 Normal 0-3 [facility] Comment on above: Performed By: #### 1 0469267 #### [facility] [address] [place] [address] Mucus Ql (Urine sed) TRACE Normal [facility] Comment on above: Performed By: #### 1 9328467 #### [facility] [address] [place] [address] Nitrite Ql (U) Negative Normal Negative [facility] Comment on above: Performed By: #### 1 5600803 #### [facility] [address] [place] [address] pH (U) 6.0 [pH] Invalid Interpretation Code 5.0-9.0 [facility] Comment on above: Performed By: #### 1 6749077 #### [facility] [address] [place] [address] Protein (U) [Mass/Vol] Negative Normal Negative [facility] Comment on above: Performed By: #### 1 5726343 #### [facility] [address] [place] [address] Specific gravity (U) [Rel density] >=1.030 Invalid Interpretation Code 1.005-1.030 [facility] Comment on above: Performed By: #### 1 8295292 #### [facility] [address] [place] [address] Type of Urine collection method Clean Catch Normal [facility] Comment on above: Performed By: #### 1 0441229 #### [facility] [address] [place] [address] Urobilinogen Qn (U) 0.2 {Rajwinder'U}/dL Normal 0.0-1.0 [facility] Comment on above: Performed By: #### 1 7720796 #### [facility] [address] [place] [address] WBC Auto Ql (U) Negative Normal Negative [facility] Comment on above: Performed By: #### 1 5069744 #### [facility] [address] [place] [address] WBC LM.HPF (Urine sed) [#/Area] 0-5 Normal 0-5 [facility] Comment on above: Performed By: #### 1 4352510 #### [facility] [address] [place] [address] URINALYSISOrdered By: Indira calix on 03-24-2023 Bilirubin [...] PM) Normal Negative [facility] UA Auto SS [place].plasma/Lithiu m.RBC (Bld) [Mass ratio] 0-3 /HPF Normal 0-3/HPF [facility] UA Auto SS Mucus Ql (Urine sed) Trace (03/24/23 3:05 PM) Normal [facility] UA Auto SS Nitrite Ql (U) Negative (03/24/23 3:05 PM) Normal Negative [facility] UA Auto SS pH (U) 6.0 *NA* (03/24/23 3:05 PM) Invalid Interpretation Code 5.0 - 9.0 [facility] UA Auto SS Protein (U) [Mass/Vol] Negative (03/24/23 3:05 PM) Normal Negative [facility] UA Auto SS Specific gravity (U) [Rel density] >=1.030 *NA* (03/24/23 3:05 PM) Invalid Interpretation Code 1.005 - 1.030 [facility] UA Auto SS UA Spec Desc Clean Catch (03/24/23 3:05 PM) Normal [facility] UA Auto SS Urobilinogen Qn (U) 0.7999520 {Rajwinder'U}/dL Normal 0.0 - 1.0 EU/dL [facility] UA Auto SS WBC Auto Ql (U) Negative (03/24/23 3:05 PM) Normal Negative [facility] UA Auto SS WBC LM.HPF (Urine sed) [#/Area] 0-5 /HPF Normal 0-5/HPF [facility] UA Auto SS XR Chest 2 Viewson XR Chest 2 Views Exam Date/Time: 03/24/2023 [...] mGy = na DAP = na Normal [facility] eGFRon 03-24-2023 GFR/1.73 sq M.predicted among non-blacks MDRD (S/P/Bld) [Vol rate/Area] 51 mL/min/1.73 m2 Low >=59 [facility] Comment on above: Order Comment: Order added by Discern Expert. Result Comment: Plate Mounter dina kidney disease could be indicated at eGFR's of less than 60 mL/min/1.73m2. Kidney failure is indicated at less than 15 mL/min/1.73m2. Performed By: #### 1 4123043, 7883717, 0618771, 9207391, 4752613, 9380848 ####[facility] [address] [place] [address] Physician Orderon 03-23-2023 Physician Order [id number]#1. 00CD:127 Normal [facility] XR SHOULDER RT 2V or >on [...] VANDANA YUAN Date: 2022-10-07 22:08 Normal [facility] CBC AUTO DIFFon 09-16-2022 BASO # 0.0 103/ul Normal 0.0-0.1 [facility] Comment on above: Performed By: #### C BC ####[facility] [address] [place], [place] [address]CaMehreen Alvarado Basophils/100 WBC (Bld) 0.5 % Normal 0.2-2.0 [facility] Comment on above: Performed By: #### C BC ####[facility] [address] [place], [place] [address]KnMehreen Alvarado EO # 0.1 103/ul Normal 0.0-0.7 [facility] Comment on above: Performed By: #### C BC ####[facility] [address] [place] [address]Dr. Andrade Alvarado Eosinophils/100 WBC (Bld) 2.3 % Normal 0.9-7.0 [facility] Comment on above: Performed By: #### C BC ####[facility] [address] [place] [address]Dr. Andrade Alvarado Erythrocyte distribution width (RBC) [Ratio] 13.7 % Normal 11.0-15.0 [facility] Comment on above: Performed By: #### C BC ####[facility] [address] [place], [place] [address]Dr. Andrade Alvarado Hematocrit (Bld) [Volume fraction] 32.8 % Critically low 36.0-48.0 [facility] [facility] Comment on above: Performed By: #### C BC ####[facility] [address]ofv[address] [place], [place] [address]Dr. Andrade Alvarado Hemoglobin (Bld) [Mass/Vol] 10.9 g/dL Critically low 12.0-16.0 [facility] Comment on above: Performed By: #### C BC ####[facility] [address]rfiylaaxl[address] [place], [place] [address]Dr. Andrade Alvarado IG # 0.02 10e3/ul Normal 0.00-0.03 [facility] Comment on above: Performed By: #### C BC ####[facility] Zgnnjydiux[address] [place], [place] [address]Dr. Andrade Alvarado IG % 0.5 % Normal 0.0-0.5 [facility] Comment on above: Performed By: #### C BC ####[facility] Yfmnyztsdy[address] [place], [place] [address]Dr. Andrade Alvarado LYMPH # 1.6 103/ul Normal 1.2-3.8 [facility] Comment on above: Performed By: #### C BC ####[facility] [address]fshpsers[address] [place], [place] [address]Dr. Andrade Alvarado Lymphocytes/100 WBC (Bld) 41.8 % Normal 20.5-60.0 [facility] Comment on above: Performed By: #### C BC ####[facility] [address] [place] [address]DrMehreen Alvarado MANUAL DIFF REQ NO Normal [facility] Comment on above: Performed By: #### C BC ####[facility] [address]klukhdahx8[address] [place] [id number]. Andrade Alvarado MCH (RBC) [Entitic mass] 31.9 pg Normal 26.7-34.0 [facility] Comment on above: Performed By: #### C BC ####[facility] Gjjwwzidnd[address] [place] [address]Dr. Andrade Alvarado MCHC (RBC) [Mass/Vol] 33.2 g/dL Normal 29.9-35.2 [facility] Comment on above: Performed By: #### C BC ####[facility] Rfonocyxvk[address] [place], [place] [address]Dr. Andrade Alvarado MCV (RBC) [Entitic vol] 95.9 fL Normal 81.0-99.0 [facility] Comment on above: Performed By: #### C BC ####[facility] Exkajbpwre[address] [place], [place] [address]DrMehreen Alvarado MONO # 0.5 103/ul Normal 0.3-0.8 [facility] Comment on above: Performed By: #### C BC ####[facility] Agzvhsysvj60[address] [place] [address]DrMehreen Alvarado Monocytes/100 WBC (Bld) 13.1 % Critically high 1.7-12.0 [facility] Comment on above: Performed By: #### C BC ####[facility] Mybbdrqjtu[address] [place], [place] [address]DrMehreen Alvarado NEUT # 1.6 103/ul Normal 1.4-6.5 [facility] Comment on above: Performed By: #### C BC ####[facility] Msqslcxqnl[address] [place], [place] [address]DrMehreen Alvarado Neutrophils/100 WBC (Bld) 41.8 % Critically low 43.0-75.0 [facility] Comment on above: Performed By: #### C BC ####[facility] Qghwoqlzif[address] [place] [address]DrMehreen Alvarado Platelet mean volume (Bld) [Entitic vol] 8.8 fL Critically low 9.5-13.5 [facility] Comment on above: Performed By: #### C BC ####[facility] Exserdahry[address] [place] [address]DrMehreen Alvarado PLT 219 103/ul Normal 150-450 [facility] Comment on above: Performed By: #### C BC ####[facility] Uujbuqftei6720 [place] [address]DrMehreen Alvarado RBC 3.42 106/ul Critically low 4.20-5.40 [facility] Comment on above: Performed By: #### C BC ####[facility] Gvofifzurl7[address] [place] [address]DrMehreen Alvarado WBC 3.9 103/ul Critically low 4.0-11.0 [facility] Comment on above: Performed By: #### C BC ####[facility] Kylgyrlker[address] [place] [address]Dr. Andrade Alvarado FERRITINon 09-16-2022 Ferritin [Mass/Vol] 292.0 ng/mL Critically high 8.0-252.0 [facility] Comment on above: Performed By: #### F ERR, B12FOL, FETIBC #### [facility] Laboratory [address] [address] [address] Andrade Alvarado IRON AND TIBCon 09-16-2022 % SATURATION 76.2 % Normal [facility] Comment on above: Performed By: #### F ERR, B12FOL, FETIBC #### [facility] Laboratory [address] [address] [address] Andrade Alvarado Iron [Mass/Vol] 259.0 ug/dL Critically high 50.0-170.0 [facility] Comment on above: Performed By: #### F ERR, B12FOL, FETIBC #### [facility] Laboratory [address] [address] [address] Andrade Alvarado TIBC DIRECT 340.0 ug/dL Normal 250.0-450.0 [facility] Comment on above: Performed By: #### F ERR, B12FOL, FETIBC #### [facility] Laboratory [address] [address] [address] Andrade Alvarado PROF 14(COMP METB)on 023 Albumin [Mass/Vol] 4.0 g/dL Normal 3.4-5.0 [facility] Comment on above: Performed By: #### C MP ####[facility] Hpcgzxnyur4[address] [place] [address]Dr. Andrade Alvarado Albumin/Globulin [Mass ratio] 1.3 {ratio} Normal [facility] Comment on above: Performed By: #### C MP ####[facility] Ugwdsvddnb5[address] [place] [address]Dr. Andrade Alvarado ALP [Catalytic activity/Vol] 47 U/L Normal 46-116 [facility] Comment on above: Performed By: #### C MP ####[facility] Xtkjvaziga9[address] [place] [address]Dr. Andrade Alvarado ALT [Catalytic activity/Vol] 23 U/L Normal 14-59 [facility] Comment on above: Performed By: #### C MP ####[facility] Gzjfqgezsy79[address] [place] [address]Dr. Andrade Alvarado Anion gap [Moles/Vol] 12.1 mmol/L Normal [facility] Comment on above: Performed By: #### C MP ####[facility] Ijappnrnzt2933 [place] [address]Dr. Andrade Alvarado AST [Catalytic activity/Vol] 23 U/L Normal 15-37 [facility] Comment on above: Performed By: #### C MP ####[facility] Cemnhgnecb17[address] [place] [address]Dr. Andrade Alvarado Bilirubin [Mass/Vol] 0.4 mg/dL Normal 0.2-1.0 [facility] Comment on above: Performed By: #### C MP ####[facility] Cjhgsslwyd9072 [place] [id number]. Andrade Alvarado Calcium [Mass/Vol] 9.3 mg/dL Normal 8.5-10.1 [facility] Comment on above: Performed By: #### C MP ####[facility] Agrddutgoe[address] [place] [address]Dr. Andrade Alvarado Chloride [Moles/Vol] 108 mmol/L Critically high 98-107 [facility] Comment on above: Performed By: #### C MP ####[facility] Wmekzqpoer68[address] [place] [address]Dr. Andrade Alvarado CO2 [Moles/Vol] 26.9 mmol/L Normal 21.0-32.0 [facility] Comment on above: Performed By: #### C MP ####[facility] Qightwjvwk[address] [place], [place] [address]Dr. Andrade Alvarado Creatinine [Mass/Vol] 0.87 mg/dL Normal 0.55-1.02 [facility] Comment on above: Performed By: #### C MP ####[facility] Xeoxweamjc[address] [place] [address]Dr. Andrade Alvarado EGFR-AF VIETNAMESE >60 Normal >=60 [facility] Comment on above: Performed By: #### C MP ####[facility] Wotwcuvwmg8284 [place] [address]Dr. Andrade Alvarado EGFR-NON AF VIETNAMESE >60 Normal >=60 [facility] Comment on above: Performed By: #### C MP ####[facility] Zrtfdnasej3934 [place] [address]Dr. Andrade Christiano Globulin (S) [Mass/Vol] 3.0 g/dL Normal [facility] Comment on above: Performed By: #### C MP ####[facility] [address]sczeplhqe[address] [place], [place] [address]Dr. Andrade Christiano Glucose [Mass/Vol] 102 mg/dL Normal 74-106 [facility] Comment on above: Performed By: #### C MP ####[facility] Ifvorlkxfh[address] [place], [place] [address]Dr. Andrade Alvarado Potassium [Moles/Vol] 4.0 mmol/L Normal 3.5-5.1 [facility] Comment on above: Performed By: #### C MP ####[facility] Sfynmnvlyk[address] [place] [address]Dr. Andrade Christiano Protein [Mass/Vol] 7.0 g/dL Normal 6.4-8.2 [facility] Comment on above: Performed By: #### C MP ####[facility] Falpxphidm74[address] [place] [address]Dr. Kellengregory Alvarado Sodium [Moles/Vol] 143 mmol/L Normal 136-145 [facility] Comment on above: Performed By: #### C MP ####[facility] Simdbhnohp[address] [place], [place] [address]DrMehreen Kellengregory Alvarado Urea nitrogen [Mass/Vol] 25.0 mg/dL Critically high 7.0-18.0 [facility] Comment on above: Performed By: #### C MP ####[facility] Xyczyzajhn[address] [place], [place] [address]Dr. Andrade Alvarado Urea nitrogen/Creatinine [Mass ratio] 28.7 mg/mg Normal [facility] Comment on above: Performed By: #### C MP ####[facility] Yxxwmogxnq[address] [place], [place] [address]Dr. Andrade Christiano SED RATE WESTERGRENon 2022 SED RATE 11 mm/hr Normal <=30 [facility] Comment on above: Performed By: #### S EDR ####[facility] Racbuivvjg[address]98 [place] [address]DrMehreen Alvarado VIT B12 AND FOLATEon 023 Cobalamin (Vitamin B12) [Mass/Vol] 249.0 pg/mL Normal 193.0-986.0 [facility] Comment on above: Performed By: #### F ERR, B12FOL, FETIBC #### [facility] Laboratory [address] [place], [place] [address] Dr. Andrade Alvarado FOLATE 14.00 ng/mL Normal 8.60-58.90 [facility] Comment on above: Performed By: #### F ERR, B12FOL, FETIBC #### [facility] Laboratory [address] [address] [address] Andrade Alvarado MG MAMM SCREEN 3D BRENNA CADon 2022 MG MAMM SCREEN 3D BRENNA CAD Patient: RADHA ZAIDI Exam Date: 2022 : 1960 Gender:F Ordering : DR JOHN ASHBY D.O. Admission #: [id number] Family : Order #: [id number] CLICK HERE TO VIEW EXAM RADIOLOGY REPORT [...] prostate cancer at age 72. LOCATION: [facility] BREAST COMPOSITION: Scattered areas fibroglandular density. FINDINGS: [...] M.D. on 06/09/2022 at 15:30 Normal [facility] CBC AUTO DIFFon 05-20-2022 BASO # 0.0 103/ul Normal 0.0-0.1 [facility] Comment on above: Performed By: #### C BC ####[facility] Ykvxpbnarj2913 [place] [address]DrMehreen Alvarado Basophils/100 WBC (Bld) 1.0 % Normal 0.2-2.0 [facility] Comment on above: Performed By: #### C BC ####[facility] Ffzbxorrcf4399 [place] [id number] Alvarado EO # 0.1 103/ul Normal 0.0-0.7 [facility] Comment on above: Performed By: #### C BC ####[facility] Xkzztyyhex9[address] [place] [address]Dr. Kellengregory Alvarado Eosinophils/100 WBC (Bld) 2.5 % Normal 0.9-7.0 [facility] Comment on above: Performed By: #### C BC ####[facility] Mslmkquuxz[address] [place], [place] [address]Dr. Andrade Christiano Erythrocyte distribution width (RBC) [Ratio] 13.0 % Normal 11.0-15.0 [facility] Comment on above: Performed By: #### C BC ####[facility] Renkffnuzv[address] [place], [place] [address]Dr. Kellengregory Alvarado Hematocrit (Bld) [Volume fraction] 34.9 % Critically low 36.0-48.0 [facility] Comment on above: Performed By: #### C BC ####[facility] Msreqfqmnt[address] [place], [place] [address]Dr. Andrade Christiano Hemoglobin (Bld) [Mass/Vol] 11.6 g/dL Critically low 12.0-16.0 [facility] Comment on above: Performed By: #### C BC ####[facility] Ggrdsukzwj[address] [place], [place] [address]Dr. Andrade Alvarado IG # 0.02 10e3/ul Normal 0.00-0.03 [facility] Comment on above: Performed By: #### C BC ####[facility] Smenmkgwfr[address] [place], [place] [address]Dr. Andrade Alvarado IG % 0.5 % Normal 0.0-0.5 [facility] Comment on above: Performed By: #### C BC ####[facility] Dxfjuucdvv[address] [place], [place] [address]DrMehreen Alvarado LYMPH # 1.9 103/ul Normal 1.2-3.8 [facility] Comment on above: Performed By: #### C BC ####[facility] Rvwqixewma[address] [place], [place] [address]Dr. Andrade Alvarado Lymphocytes/100 WBC (Bld) 46.1 % Normal 20.5-60.0 [facility] Comment on above: Performed By: #### C BC ####[facility] Tsovcrbzbz[address] [place] [address]DrMehreen Alvarado MANUAL DIFF REQ NO Normal [facility] Comment on above: Performed By: #### C BC ####[facility] Rbzfreihzo1530 [place] [address]DrMehreen Alvarado MCH (RBC) [Entitic mass] 32.3 pg Normal 26.7-34.0 [facility] Comment on above: Performed By: #### C BC ####[facility] Cmupezmetv5215 [place] [address]DrMehreen Alvarado MCHC (RBC) [Mass/Vol] 33.2 g/dL Normal 29.9-35.2 [facility] Comment on above: Performed By: #### C BC ####[facility] [address]vskt[address] [place], [place] [address]DrMehreen Alvarado MCV (RBC) [Entitic vol] 97.2 fL Normal 81.0-99.0 [facility] Comment on above: Performed By: #### C BC ####[facility] U[address]iodsefje[address] [place], [place] [address]DrMehreen Alvarado MONO # 0.5 103/ul Normal 0.3-0.8 [facility] Comment on above: Performed By: #### C BC ####[facility] [address]qcdjrvucm[address] [place], [place] [address]DrMehreen Alvarado Monocytes/100 WBC (Bld) 13.5 % Critically high 1.7-12.0 [facility] Comment on above: Performed By: #### C BC ####[facility] [address]vavvk[address] [place], [place] [address]DrMehreen Alvarado NEUT # 1.5 103/ul Normal 1.4-6.5 [facility] Comment on above: Performed By: #### C BC ####[facility] Ac[address]kfpbyzm[address] [place], [place] [address]DrMehreen Alvarado Neutrophils/100 WBC (Bld) 36.4 % Critically low 43.0-75.0 [facility] Comment on above: Performed By: #### C BC ####[facility] Ihpttuwznz7764 [place] [id number]. Andarde Alvarado Platelet mean volume (Bld) [Entitic vol] 8.9 fL Critically low 9.5-13.5 [facility] Comment on above: Performed By: #### C BC ####[facility] Uygcotyurd9045 [place] [id number] Alvarado PLT 237 103/ul Normal 150-450 [facility] Comment on above: Performed By: #### C BC ####[facility] Lwljirbpcs1619 [place] [id number]. Andrade Alvarado RBC 3.59 106/ul Critically low 4.20-5.40 [facility] Comment on above: Performed By: #### C BC ####[facility] Kqzhbeuxfa3702 [place] [address]Dr. Andrade Alvarado WBC 4.0 103/ul Normal 4.0-11.0 [facility] Comment on above: Performed By: #### C BC ####[facility] Gxujejntpd3038 [place] [id number]. Andrade Alvarado CRPon 05-20-2022 CRP [Mass/Vol] mg/L Normal <=1.0 [facility] Comment on above: Performed By: #### C MP, CRP, TSH ####[facility] Ztigzhjwye[address] [place] [id number]. Andrade Alvarado PROF 14(COMP METB)on 022 Albumin [Mass/Vol] 4.2 g/dL Normal 3.4-5.0 The [facility] Comment on above: Performed By: #### C MP, CRP, TSH #### [facility] Laboratory [address] [place], [place] [address] Dr. Andrade Alvarado Albumin/Globulin [Mass ratio] 1.3 {ratio} Normal [facility] Comment on above: Performed By: #### C MP, CRP, TSH #### [facility] Laboratory [address] [address] [address] Andrade Alvarado ALP [Catalytic activity/Vol] 50 U/L Normal 46-116 [facility] Comment on above: Performed By: #### C MP, CRP, TSH #### [facility] Laboratory [address] [address] [address] Andrade Alvarado ALT [Catalytic activity/Vol] 23 U/L Normal 14-59 [facility] Comment on above: Performed By: #### C MP, CRP, TSH #### [facility] Laboratory [address] [address] [address] Andrade Alvarado Anion gap [Moles/Vol] 11.3 mmol/L Normal [facility] Comment on above: Performed By: #### C MP, CRP, TSH #### [facility] Laboratory [address] [address] [address] Andrade Alvarado AST [Catalytic activity/Vol] 23 U/L Normal 15-37 [facility] Comment on above: Performed By: #### C MP, CRP, TSH #### [facility] [address] [address] [address] Andrade Alvarado Bilirubin [Mass/Vol] 0.5 mg/dL Normal 0.2-1.0 [facility] Comment on above: Performed By: #### C MP, CRP, TSH #### [facility] [address] [address] [address] Andrade Alvarado Calcium [Mass/Vol] 9.3 mg/dL Normal 8.5-10.1 [facility] Comment on above: Performed By: #### C MP, CRP, TSH #### [facility] [address] [address] [address] Andrade Alvarado Chloride [Moles/Vol] 104 mmol/L Normal 98-107 [facility] Comment on above: Performed By: #### C MP, CRP, TSH #### [facility] [address] [address] [address] Andrade Alvarado CO2 [Moles/Vol] 27.2 mmol/L Normal 21.0-32.0 [facility] Comment on above: Performed By: #### C MP, CRP, TSH #### [facility] [address] [address] [address] Andrade Alvarado Creatinine [Mass/Vol] 0.99 mg/dL Normal 0.55-1.02 [facility] Comment on above: Performed By: #### C MP, CRP, TSH #### [facility] [address] [address] [address] Andrade Alvarado EGFR-AF VIETNAMESE >60 Normal >=60 [facility] Comment on above: Performed By: #### C MP, CRP, TSH #### [facility] [address] [address] [address] Andrade Alvarado EGFR-NON AF VIETNAMESE 57 mL/min/1.73m2 Critically low >=60 [facility] Comment on above: Performed By: #### C MP, CRP, TSH #### [facility] [address] [address] [address] Andrade Alvarado Globulin (S) [Mass/Vol] 3.3 g/dL Normal [facility] Comment on above: Performed By: #### C MP, CRP, TSH #### [facility] Laboratory [address] [address] [address] Andrade Alvarado Glucose [Mass/Vol] 97 mg/dL Normal 74-106 [facility] Comment on above: Performed By: #### C MP, CRP, TSH #### [facility] [address] [address] [address] Andrade Alvarado Potassium [Moles/Vol] 3.5 mmol/L Normal 3.5-5.1 [facility] Comment on above: Performed By: #### C MP, CRP, TSH #### [facility] [address] [address] [address] Andrade Alvarado Protein [Mass/Vol] 7.5 g/dL Normal 6.4-8.2 [facility] Comment on above: Performed By: #### C MP, CRP, TSH #### [facility] [address] [address] [address] Andrade Alvarado Sodium [Moles/Vol] 139 mmol/L Normal 136-145 [facility] Comment on above: Performed By: #### C MP, CRP, TSH #### [facility] [address] [address] [address] Andrade Alvarado Urea nitrogen [Mass/Vol] 22.0 mg/dL Critically high 7.0-18.0 [facility] Comment on above: Performed By: #### C MP, CRP, TSH #### [facility] [address] [address] [address] Andrade Alvarado Urea nitrogen/Creatinine [Mass ratio] 22.2 mg/mg Normal [facility] Comment on above: Performed By: #### C MP, CRP, TSH #### [facility] Laboratory [address] [place] [address] Dr. Andrade Alvarado SED RATE [facility] 2021 SED RATE 22 mm/hr Normal <=30 [facility] Comment on above: Performed By: #### S EDR ####[facility] T[address] [place], [place] [address]Dr. Andrade Alvarado TSHon 05-20-2022 TSH 1.373 uIU/mL Normal 0.358-3.740 [facility] Comment on above: Performed By: #### C MP, CRP, TSH #### [facility] [address] [place] [address] Dr. Andrade Alvarado CBC AUTO DIFFon 02-16-2022 BASO # 0.0 103/ul Normal 0.0-0.1 [facility] Comment on above: Performed By: #### C BC ####[facility] [address]vbseqbs24[address] [place] [address]DrMehreen Alvarado Basophils/100 WBC (Bld) 0.9 % Normal 0.2-2.0 [facility] Comment on above: Performed By: #### C BC ####[facility] [address]ozavbui[address] [place] [address]DrMehreen Alvarado EO # 0.1 103/ul Normal 0.0-0.7 [facility] Comment on above: Performed By: #### C BC ####[facility] Ortruljbgt5[address] [place] [id number]. Andrade Alvarado Eosinophils/100 WBC (Bld) 2.3 % Normal 0.9-7.0 [facility] Comment on above: Performed By: #### C BC ####[facility] Owplzmcsor[address] [place] [address]Dr. Andrade Alvarado Erythrocyte distribution width (RBC) [Ratio] 12.6 % Normal 11.0-15.0 [facility] Comment on above: Performed By: #### C BC ####[facility] Futpgpvsze[address] [place], [place] [address]Dr. Andrade Alvarado Hematocrit (Bld) [Volume fraction] 37.8 % Normal 36.0-48.0 [facility] Comment on above: Performed By: #### C BC ####[facility] [address]njkku[address] [place], [place] [address]Dr. Andrade Alvarado Hemoglobin (Bld) [Mass/Vol] 12.3 g/dL Normal 12.0-16.0 [facility] Comment on above: Performed By: #### C BC ####[facility] [address]weokp[address] [place] [address]Dr. Andrade Alvarado IG # 0.02 10e3/ul Normal 0.00-0.03 [facility] Comment on above: Performed By: #### C BC ####[facility] [address]ughsads[address] [place], [place] [address]Dr. Andrade Alvarado IG % 0.5 % Normal 0.0-0.5 [facility] Comment on above: Performed By: #### C BC ####[facility] [address] [place], [place] [address]Dr. Andrade Alvarado LYMPH # 2.1 103/ul Normal 1.2-3.8 [facility] Comment on above: Performed By: #### C BC ####[facility] [address]mf[address] [place], [place] [address]Dr. Andrade Alvarado Lymphocytes/100 WBC (Bld) 48.3 % Normal 20.5-60.0 [facility] Comment on above: Performed By: #### C BC ####[facility] [address]dhexoqimw[address] [place] [id number]. Andrade Alvarado MANUAL DIFF REQ NO Normal [facility] Comment on above: Performed By: #### C BC ####[facility] Fzcwflelvz0053 [place] [id number]. Andrade Alvarado MCH (RBC) [Entitic mass] 31.9 pg Normal 26.7-34.0 [facility] Comment on above: Performed By: #### C BC ####[facility] Xvaqrifpjx76[address] [place] [id number]. Andrade Alvarado MCHC (RBC) [Mass/Vol] 32.5 g/dL Normal 29.9-35.2 [facility] Comment on above: Performed By: #### C BC ####[facility] Jgdpllempf5[address] [place] [address]Dr. Andrade Alvarado MCV (RBC) [Entitic vol] 97.9 fL Normal 81.0-99.0 [facility] Comment on above: Performed By: #### C BC ####[facility] Iqldwlikhz05[address] [place] [id number]. Andrade Alvarado MONO # 0.5 103/ul Normal 0.3-0.8 [facility] Comment on above: Performed By: #### C BC ####[facility] Ohbfbyxzyp33[address] [place] [address]Dr. Andrade Christiano Monocytes/100 WBC (Bld) 11.2 % Normal 1.7-12.0 The [facility] Comment on above: Performed By: #### C BC ####[facility] [address] [place] [id number]. Andrade Alvarado NEUT # 1.6 103/ul Normal 1.4-6.5 [facility] Comment on above: Performed By: #### C BC ####[facility] [address] [place] [address]Dr. Andrade Alvarado Neutrophils/100 WBC (Bld) 36.8 % Critically low 43.0-75.0 [facility] Comment on above: Performed By: #### C BC ####[facility] [address] [place], [place] [address]Ck. Andrade Alvarado Platelet mean volume (Bld) [Entitic vol] 9.9 fL Normal 9.5-13.5 [facility] Comment on above: Performed By: #### C BC ####[facility] [address] [place], [place] [address]RjMehreen Alvarado PLT 213 103/ul Normal 150-450 [facility] Comment on above: Performed By: #### C BC ####[facility] [address]tab[address] [place] [id number]. Andrade Alvarado RBC 3.86 106/ul Critically low 4.20-5.40 The [facility] Comment on above: Performed By: #### C BC ####[facility] [address] [place] [id number]. Andrade Alvarado WBC 4.4 103/ul Normal 4.0-11.0 [facility] Comment on above: Performed By: #### C BC ####[facility] [address]wg[address] [place] [id number]. Andrade Alvarado PROF 14(COMP METB)on 022 Albumin [Mass/Vol] 4.2 g/dL Normal 3.4-5.0 [facility] Comment on above: Performed By: #### C MP #### [facility] [address] [address] [address] Andrade Alvarado Albumin/Globulin [Mass ratio] 1.3 {ratio} Normal [facility] Comment on above: Performed By: #### C MP #### [facility] [address] [address] [address] Andrade Alvarado ALP [Catalytic activity/Vol] 61 U/L Normal 46-116 [facility] Comment on above: Performed By: #### C MP #### [facility] [address] [address] [address] Andrade Alvarado ALT [Catalytic activity/Vol] 23 U/L Normal 14-59 [facility] Comment on above: Performed By: #### C MP #### [facility] [address] [address] [address] Andrade Alvarado Anion gap [Moles/Vol] 15.5 mmol/L Normal [facility] Comment on above: Performed By: #### C MP #### [facility] [address] [place] [address] Dr. Andrade Alvarado AST [Catalytic activity/Vol] 20 U/L Normal 15-37 [facility] Comment on above: Performed By: #### C MP #### [facility] [address] [address] [address] Andrade Alvarado Bilirubin [Mass/Vol] 0.5 mg/dL Normal 0.2-1.0 [facility] Comment on above: Performed By: #### C MP #### [facility] [address] [place] [address] Dr. Andrade Alvarado Calcium [Mass/Vol] 9.1 mg/dL Normal 8.5-10.1 [facility] Comment on above: Performed By: #### C MP #### [facility] [address] [place] [address] Dr. Andrade Alvarado Chloride [Moles/Vol] 106 mmol/L Normal 98-107 [facility] Comment on above: Performed By: #### C MP #### [facility] [address] [place] [address] Dr. Andrade Alvarado CO2 [Moles/Vol] 25.6 mmol/L Normal 21.0-32.0 [facility] Comment on above: Performed By: #### C MP #### [facility] [address] [place] [address] Dr. Andrade Alvarado Creatinine [Mass/Vol] 0.97 mg/dL Normal 0.55-1.02 [facility] Comment on above: Performed By: #### C MP #### [facility] [address] [place] [address] Dr. Andrade Alvarado EGFR-AF VIETNAMESE >60 Normal >=60 [facility] Comment on above: Performed By: #### C MP #### [facility] [address] [place] [address] Dr. Andrade Alvarado EGFR-NON AF VIET[place]ESE 58 mL/min/1.73m2 Critically low >=60 [facility] Comment on above: Performed By: #### C MP #### [facility] [address] [place] [address] Dr. Andrade Alvarado Globulin (S) [Mass/Vol] 3.2 g/dL Normal [facility] Comment on above: Performed By: #### C MP #### [facility] [address] [address] [address] Andrade Alvarado Glucose [Mass/Vol] 91 mg/dL Normal 74-106 [facility] Comment on above: Performed By: #### C MP #### [facility] [address] [address] [address] Andrade Alvarado Potassium [Moles/Vol] 4.1 mmol/L Normal 3.5-5.1 [facility] Comment on above: Performed By: #### C MP #### [facility] [address] [place] [address] Dr. Andrade Alvarado Protein [Mass/Vol] 7.4 g/dL Normal 6.4-8.2 [facility] Comment on above: Performed By: #### C MP #### [facility] [address] [place] [address] Dr. Andrade Alvarado Sodium [Moles/Vol] 143 mmol/L Normal 136-145 [facility] Comment on above: Performed By: #### C MP #### [facility] [address] [place] [address] Dr. Andrade Alvarado Urea nitrogen [Mass/Vol] 18.0 mg/dL Normal 7.0-18.0 [facility] Comment on above: Performed By: #### C MP #### [facility] [address] [address] [address] Andrade Alvarado Urea nitrogen/Creatinine [Mass ratio] 18.6 mg/mg Normal [facility] Comment on above: Performed By: #### C MP #### [facility] [address] [place] [address] Dr. Andrade Alvarado SED RATE [facility] 2021 SED RATE 15 mm/hr Normal <=30 [facility] Comment on above: Performed By: #### S EDR #### [facility] [address] [address] [address] Andrade Alvarado KNEE LEFT 3 [facility] 04-25-2020 KNEE LEFT 3 [facility] Department of Radiology [address] [place] [address] Patient Name: RADHA ZAIDI : 1960 Sex: F Age: Race: White Pt. Location: Patient Status: Ordered Date: 04/25/2020 8:25:00 AM Completed Date: 04/25/2020 08:24 AM Requesting Provider: ALEXANDRA MARS Attending Provider: Report Copy To: Signs & Symptoms: S82.832K Oth fx upr and low end l fibula, subs for clos fx w nonunion I10 History: [place] Comments: Evaluate Exam: KNEE LEFT 3 [facility] KNEE LEFT 3 [facility] 04/25/2020 8:24 AM CLINICAL INDICATIONS: S82.832K Oth [...] visible. Electronically signed: Eliezer Cam. Transcribed by: [email or web address], User Resident: Electronically Signed by: ELIEZER CAM @ 04/25/2020 11:44 AM Normal [facility] Comment on above: Order Comment: Evalu ate TIBIA FIBULA LEFTon 03-27-20 20 TIBIA FIBULA LEFT [facility] Department of Radiology [address] [place] [id number] Patient Name: RADHA ZAIDI : 1960 Sex: F Age: Race: White Pt. Location: Patient Status: Ordered Date: 03/27/2020 8:05:00 AM Completed Date: 03/27/2020 08:35 AM Requesting Provider: CHARLI LUKE Attending Provider: Report Copy To: Signs & Symptoms: S82.832A Oth fracture of upper and lower end of left fibula, init I10 History: [place] Comments: , , , Ordering Provider - [...] healing Electronically signed: Crissy Dubon. Transcribed by: [email or web address], User Resident: Electronically Signed by: CRISSY DUBON @ 03/27/2020 09:11 AM Normal [facility] Comment on above: Order Comment: Evalu ate Operative Reporton 0 Operative Report MR#: [id number] S [facility] Pt. Name: Radha Zaidi Room #: 0C [...] were bluntly retracted. We then used a [place] as well as a hemostat to debride [...] by: Maryuri Alexander M.D. 03/14/2020 07:46 A Mrayuri Alexander M.D. I was present for the evangelista and critical portions and I was otherwise immediately available to assist. Date Dict: 03/12/2020/04:38 P/Tiera Paniagua MD Date Trans: 03/13/2020 02:26 A/bryson [id number] cc: John Ashby D.O. [address] [place] [phone] [place] [facility] KNEE LEFT 1 OR 2 VWSon 03-12 KNEE LEFT 1 OR [address] [facility] Department of Radiology [address] [place] [address] Patient Name: RADHA ZAIDI : 1960 Sex: F Age: Race: White Pt. Location: OUT Patient Status: Ordered Date: 03/12/2020 12:00:00 PM Completed Date: 03/12/2020 02:31 PM Requesting Provider: MARYURI ALEXANDER Attending Provider: MARYURI ALEXANDER Report Copy To: Signs & Symptoms: LEFT PROXIMAL FIBULA NONUNION SCREW FIXATION, BIOPSY, AND BONE GRAFT History: Comments: LEFT PROXIMAL FIBULA NONUNION SCREW FIXATION, BIOPSY, AND BONE GRAFT Exam: KNEE LEFT 1 OR 2 S Intraoperative fluoroscopic guidance HISTORY: Fracture fixation. COMPARISON: 02/04/2020 radiographs. IMPRESSION: 1. There are 3 images, total time of 2.6 minutes. 2. Hardware projects over the proximal fibular shaft fracture. Electronically signed: Rahul James. Transcribed by: [email or web address], User Resident: Electronically Signed by: RAHUL JAMES @ 03/12/2020 03:20 PM Normal [facility] Comment on above: Order Comment: Evalu ate POC GLUCOSE LABon 03-12-2020 Glucose [Mass/Vol] 103 mg/dL High 70-100 [facility] Comment on above: Performed By: #### 8 5499 ####[facility] *MRSA/MSSA DNA NASALon 03-08 *MRSA/MSSA DNA NASAL Clinical Report: (D ) Specimen: NASAL SWAB Collected: 03/08/2020 14:02 Status: Final Last Updated: 03/09/2020 09:30 MSSA DNA (Final) Negative MRSA DNA (Final) Negative Normal [facility] Comment on above: Performed By: #### 3 1595 ####[facility] *SARS-CoV-2 COVID-19on 03-08 [id number] Not Detected Normal Not Detected [facility] Comment on above: Order Comment: The A ptima SARS-CoV-2 assay is a nucleic acid amplification test intended for the qualitative detection of RNA from SARS-CoV-2 isolated and purified from nasopharyngeal (RESIDENT CARE AIDE),oropharyngeal (OP), nasal swab, sputum, and bronchoalveolar lavage (BAL) specimens from patients with signs and symptoms of infection who are suspected of COVID-19. Results are for the identification of SARS-CoV-2 RNA. The SARS-CoV-2 RNA is generally detectable during the acute phase of infection. The Aptima SARS-CoV-2 Assay on the [employer] system is intended for use by laboratory personnel specifically instructed and trained in the operation of the [employer] system. The Aptima SARS-CoV-2 assay is [...] information. Performed By: #### 3 1792 #### [facility] [address] APTTon 03-08-2020 aPTT Coag (Bld) [Time] 26.9 s Normal 25.0-35.0 [facility] Comment on above: Result Comment: ALL RESULTS [...] THIS PURPOSE. Performed By: #### 5 6101, [address] ####[facility] BASIC METABOLIC PANELon 02-09 Calcium [Mass/Vol] 9.7 mg/dL Normal 8.6-10.3 [facility] Comment on above: Performed By: #### 0 0071 #### [facility] [address] [place] [address], [facility] Chloride [Moles/Vol] 103 mmol/L Normal 98-107 [facility] Comment on above: Performed By: #### 0 0071 #### [facility] [address] [place] [address], [facility] CO2 [Moles/Vol] 31 mmol/L Normal 21-31 [facility] Comment on above: Performed By: #### 0 0071 #### [facility] [address] [place] [address], [facility] Creatinine [Mass/Vol] 0.87 mg/dL Normal 0.60-1.20 [facility] Comment on above: Performed By: #### 0 0071 #### [facility] [address] [place] [address], [facility] GFR/1.73 sq M predicted among blacks MDRD (S/P/Bld) [Vol rate/Area] mL/min/{1.73_m2} Normal >60 [facility] Comment on above: Performed By: #### 0 0071 #### [facility] [address] [facility] [place] [address], [facility] GFR/1.73 sq M predicted among non-blacks MDRD (S/P/Bld) [Vol rate/Area] mL/min/{1.73_m2} Normal >60 [facility] Comment on above: Performed By: #### 0 0071 #### [facility] [address] [facility] [place] [address], [facility] Glucose [Mass/Vol] 106 mg/dL High 70-100 [facility] Comment on above: Performed By: #### 0 0071 #### [facility] [address] [place] [id number], [facility] Potassium [Moles/Vol] 4.3 mmol/L Normal 3.5-5.1 [facility] Comment on above: Performed By: #### 0 0071 #### [facility] [address] [place] [id number], [facility] Sodium [Moles/Vol] 141 mmol/L Normal 136-145 [facility] Comment on above: Performed By: #### 0 0071 #### [facility] [address] Urea nitrogen [Mass/Vol] 14 mg/dL Normal 7-25 [facility] Comment on above: Performed By: #### 0 0071 #### [facility] [address] CBC W/DIFFon 03-08-2020 ABS BASOPHILS 0.1 10*3/uL Normal 0.0-0.2 [facility] Comment on above: Performed By: #### 5 0103 ####[facility] ABS IMM GRANS 0.0 10*3/uL Normal 0.0-0.2 [facility] Comment on above: Performed By: #### 5 0103 ####[facility] ABS NEUTROPHILS 3.4 10*3/uL Normal 1.6-7.6 [facility] Comment on above: Performed By: #### 5 0103 ####[facility] Basophils/100 WBC (Bld) 0.8 % Normal 0.0-1.0 [facility] Comment on above: Performed By: #### 5 0103 ####[facility] [place] [address], [facility] Eosinophils (Bld) [#/Vol] 0.7 10*3/uL High 0.0-0.5 [facility] Comment on above: Performed By: #### 5 0103 ####[facility] [place] [address], [facility] Eosinophils/100 WBC (Bld) 9.5 % High 0.0-6.0 [facility] Comment on above: Performed By: #### 5 0103 ####[facility] [place] [id number], [place] Erythrocyte distribution width (RBC) [Ratio] 13.6 % Normal 11.5-15.0 [facility] Comment on above: Performed By: #### 5 0103 ####[facility] Hematocrit (Bld) [Volume fraction] 42.5 % Normal 36.0-45.0 [facility] Comment on above: Performed By: #### 0103 ####[facility] Hemoglobin (Bld) [Mass/Vol] 13.7 g/dL Normal 12.0-15.0 [facility] Comment on above: Performed By: #### 3 ####[address] IMMATURE GRANS 0.3 % Normal 0.0-1.0 [facility] Comment on above: Performed By: #### 3 ####[facility] Lymphocytes (Bld) [#/Vol] 2.7 10*3/uL Normal 1.2-4.0 [facility] Comment on above: Performed By: #### 3 ####[facility]3000 [facility].[address] Lymphocytes/100 WBC (Bld) 35.1 % Normal 20.0-45.0 [facility] Comment on above: Performed By: #### 3 ####[place] [id number] [address] MCH (RBC) [Entitic mass] 31.2 pg Normal 27.0-33.0 [facility] Comment on above: Performed By: #### 5 3 ####[facility] [place] [address], [place] MCHC (RBC) [Mass/Vol] 32.2 g/dL Normal 32.0-35.0 [facility] Comment on above: Performed By: #### 5 0103 ####[facility] MCV (RBC) [Entitic vol] 96.8 fL Normal 82.0-98.0 [facility] Comment on above: Performed By: #### 5 0103 ####[facility]3000 [facility].[address] Monocytes (Bld) [#/Vol] 0.8 10*3/uL Normal 0.1-1.0 [facility] Comment on above: Performed By: #### 5 0103 ####[facility] MONOS 9.8 % Normal 5.0-12.0 [facility] Comment on above: Performed By: #### 5 0103 ####[facility] Neutrophils/100 WBC (Bld) 44.5 % Normal 40.0-72.0 [facility] Comment on above: Performed By: #### 5 3 ####[facility]3000 [facility].[address] Nucleated RBC/100 WBC (Bld) [Ratio] 0 % Normal 0-0 [facility] Comment on above: Performed By: #### 5 3 ####[facility]3000 [facility] [place] [address], [facility] PLAT CNT 230 10*3/uL Normal 150-400 [facility] Comment on above: Performed By: #### 5 3 ####[facility]3000 [facility] [place] [address], [facility] RBC (Bld) [#/Vol] 4.39 10*6/uL Normal 3.80-5.00 [facility] Comment on above: Performed By: #### 5 0103 ####[facility]3000 [facility].[address] WBC (Bld) [#/Vol] 7.72 10*3/uL Normal 4.00-10.60 [facility] Comment on above: Performed By: #### 5 0103 ####[facility]3000 [facility].[address] PROTHROMBIN TIMEon 0 INR Coag (PPP) [Relative time] 0.99 {INR} Normal 0.91-1.16 [facility] Comment on above: Result Comment: ACCC P [...] CHEST 1995;108:231S-246S. Performed By: #### 5 6101, 41066 #### [facility] [address] PT Coag (PPP) [Time] 13.1 s Normal 12.3-14.8 [facility] Comment on above: Result Comment: ALL RESULTS MUST BE INTERPRETED WITH RESPECT TO BLOOD DRAWING ARTIFACT OR DILUTION ERROR OF ANTICOAGULANT AT THE TIME OF SAMPLING. Performed By: #### 5 6101, 82313 #### [facility] [address] [place] [address], [facility] ALBUMIN BLOODon 02-04-2020 Albumin [Mass/Vol] 4.5 g/dL Normal 3.5-5.7 [facility] Comment on above: Performed By: #### 3 0728, 03085, 56582, 96016, [address]166 #### [facility] [address] [place] [address], [facility] BASIC METABOLIC PANELon 01-09 Calcium [Mass/Vol] 9.5 mg/dL Normal 8.6-10.3 [facility] Comment on above: Performed By: #### 3 0728, 24801, 91115, 68976, 73133 #### [facility] [address] [place] [address], [facility] Chloride [Moles/Vol] 105 mmol/L Normal 98-107 [facility] Comment on above: Performed By: #### 3 0728, 83588, 36833, 97826, 44028 #### [facility] [address] [place] [address], [facility] CO2 [Moles/Vol] 27 mmol/L Normal 21-31 [facility] Comment on above: Performed By: #### 3 0728, 50998, 25921, 02961, 91986 #### [facility] [address] [place] [address], [facility] Creatinine [Mass/Vol] 0.81 mg/dL Normal 0.60-1.20 [facility] Comment on above: Performed By: #### 3 0728, 82055, 37088, 98583, 31225 #### [facility] [address] [place] [address], [place] GFR/1.73 sq M predicted among blacks MDRD (S/P/Bld) [Vol rate/Area] mL/min/{1.73_m2} Normal >60 [facility] Comment on above: Performed By: #### 3 0728, 19548, 24156, 36479, 51759 #### [facility] [address] [place] [address], [facility] GFR/1.73 sq M predicted among non-blacks MDRD (S/P/Bld) [Vol rate/Area] mL/min/{1.73_m2} Normal >60 [facility] Comment on above: Performed By: #### 3 28, , 17163, 20134, 18129 #### [facility] [address] [place] [address], [place] Glucose [Mass/Vol] 115 mg/dL High 70-100 [facility] Comment on above: Performed By: #### 3 28, , 43488, 50207, 24830 #### [facility] [address] [place] [address], [place] Potassium [Moles/Vol] 3.9 mmol/L Normal 3.5-5.1 [facility] Comment on above: Performed By: #### 3 0728, 29273, 63714, 43892, 21113 #### [facility] [address] [place] [address], [place] Sodium [Moles/Vol] 140 mmol/L Normal 136-145 [facility] Comment on above: Performed By: #### 3 0728, 07305, 45177, 97765, 88304 #### [facility] [address] [place] [address], [place] Urea nitrogen [Mass/Vol] 20 mg/dL Normal 7-25 [facility] Comment on above: Performed By: #### 3 28, 56111, 37002, 82924, 95763 #### [facility] [address] [place] [address], [place] PREALBUMINon 02-04-2020 Prealbumin [Mass/Vol] 24.0 mg/dL Normal 17.0-34.0 [facility] Comment on above: Performed By: #### 3 0728, 66356, 08574, 14470, 42186 #### [address] TIBIA FIBULA LEFTon 02-04-20 20 TIBIA FIBULA LEFT [facility] Department of Radiology [address] [place] [id number] Patient Name: RADHA ZAIDI : 1960 [...] indicated. Electronically signed: Eliezer Randolph. Transcribed by: [email or web address], User Resident: Electronically Signed by: ELIEZER RANDOLPH @ 02/04/2020 10:34 AM Normal [facility] TRANSFERRINon 02-04-2020 Transferrin [Mass/Vol] 270 mg/dL Normal 203-362 [facility] Comment on above: Performed By: #### 3 0728, 29675, 79388, 87703, 12775 #### [facility] [address] VITAMIN D 25-HYDROXYon 02-03 VITAMIN D 25-OH 38.5 ng/mL Normal 30.0-80.0 [facility] Comment on above: Result Comment: >80. 0 Toxicity possible Performed By: #### 3 0728, 92757, 26538, 06735, 86162 #### [facility] [address] 07-06-2018 L - -------- Specimen: [id number] Received: 07/06/18 Status: JONI Lazaro Num: [id number] Spec Type: Surgical Subm Dr: Tash Resendez MD Tissues: A Finger - Amputation, Non-traumatic (LT SMALL FINGER) Procedures: HE Stain/2, Gross/Micro L4, Decal -------- Patient Age/Sex Location Account Attending Physician -------- Radha Zaidi 58/F [place] [id number] Tash Resendez MD -------- SPEC NUM: [id number] RECD: 07/06/18 STATUS: JONI LAZARO NUM: [id number] RUSS: 07/06/18 DR: Tash Resendez MD ENTERED: 07/06/18 [facility] DR: JULIUS TYPE: Surgical DEPT: S ORDERED: HE Stain/2, [...] reveals yellow, viable appearing bony cut surfaces. Brick Tester sections are submitted in two cassettes, decal. (ENRIKE/NAA/lina) -------- Specimen: [id number] Received: 07/06/18 Status: JONI Daleyricardo Num: [id number] Spec Type: Surgical Subm Dr: Tash Resendez MD Tissues: A Finger - Amputation, Non-traumatic (LT SMALL FINGER) Procedures: HE Stain/2, Gross/Micro L4, Decal -------- Patient: Radha Zaidi [id number] (Continued) -------- Specimen: [id number] Received: 07/06/18 (Continued) Signed (signature on file) Harsh Jo MD 08/14/18 1503 -------- Specimen: [id number] Received: 07/06/18 Status: JONI Lazaro Num: [id number] Spec Type: Surgical Subm Dr: Tash Resendez MD Tissues: A Finger - Amputation, Non-traumatic (LT SMALL FINGER) Procedures: HE Stain/2, Gross/Micro L4, Decal -------- Patient: Radha Zaidi [id number] (Continued) -------- Specimen: [id number] Received: 07/06/18 (Continued) Microscopic Two glass slides with H E stained material have been examined. The microscopic findings support the above pathologic diagnosis. [id number], 11263 A. - - LT SMALL FINGER -------- -------- Specimen: [id number] Received: 07/06/18 Status: JONI Lazaro Num: [id number] Spec Type: Surgical Subm Dr: Tash Resendez MD Tissues: A Finger - Amputation, Non-traumatic (LT SMALL FINGER) Procedures: HE Stain/2, Gross/Micro L4, Decal -------- Patient: Radha Zaidi [id number] (Continued) -------- Signed (signature on file) Harsh Jo MD 08/14/18 6810 [facility] FLUORO FOR SURGICAL PROCEDUR ESon 10-20-2017 FLUORO FOR SURGICAL PROCEDURES Exam: FLUORO FOR SURGICAL PROCEDURESHistory: [employer] Findings: Fluoroscopy time was 70 seconds A total of 19 fluoroscopic images were obtained by Dr. Cheng during the anterior cervical discectomy in the lower cervical spine.IMPRESSION: Impression: Fluoroscopic assistance provided for operative guidance.Interpreted by:DIANA Lealigned by:Eugene Cancino MD10/20/17inal result Normal [facility] Basic Metabolic Panelon Anion gap 15 mmol/L Critically high 7-13 [facility] Calcium 9.6 mg/dL Normal 8.6-10.2 [facility] Chloride 102 mmol/L Normal 98-107 [facility] CO2 23 mmol/L Normal 22-29 [facility] Creatinine 0.54 mg/dL Normal 0.50-0.90 [facility] eGFR (black) mL/min/{1.73_m2} Normal >60 [facility] Comment on above: Result Comment: >60 mL/min/1.73m2 EGFR, calc. for ages 18 and older using theMDRD formula (not corrected for weight), is valid for stablerenal function. eGFR (MDRD) mL/min/{1.73_m2} Normal >60 [facility] Comment on above: Result Comment: >60 mL/min/1.73m2 EGFR, calc. for ages 18 and older using theMDRD formula (not corrected for weight), is valid for stablerenal function. Glucose mass conc 97 mg/dL Normal 74-109 [facility] Potassium molar conc 4.8 mmol/L Normal 3.5-5.1 [facility] Sodium 140 mmol/L Normal 132-144 [facility] Urea nitrogen 14 mg/dL Normal 6-20 [facility] CBC With Platelet No Differe ntialon 10-13-2017 Erythrocyte distribution width Auto Ratio (RBC) 13.3 % Normal 11.5-14.5 [facility] Erythrocytes (RBC) 4.96 10*6/uL Normal 4.20-5.40 [facility] Hematocrit (HCT) 47.1 % Critically high 37.0-47.0 [facility] Hemoglobin mass conc (Bld) 16.2 g/dL Critically high 12.0-16.0 [facility] MCH 32.7 pg Critically high 27.0-31.3 [facility] MCHC mass conc (RBC) 34.4 % Normal 33.0-37.0 [facility] MCV 95.0 fL Normal 82.0-100.0 [facility] Platelets 223 10*3/uL Normal 130-400 [facility] WBC (Leukocytes) 6.2 10*3/uL Normal 4.8-10.8 [facility] Culture, MRSA Screenon 10-13 Culture, MRSA Screen ORDERED BY: VITO STALLWORTH: Nares Nose COLLECTED: 10/13/17 13:18ANTIBIOTICS AT [facility].: RECEIVED : 10/13/17 13:18Culture, MRSA Screen FINAL 10/14/17 13:59 No MRSA isolated Normal [facility] Partial Thromboplastin Timeo n 10-13-2017 aPTT 22.9 s Normal 21.6-35.4 [facility] Comment on above: Result Comment: Hepa rin Therapeutic Range: 38.8 - 54.6 seconds. Prothrombin Timeon 8 INR Coag RelTime (PPP) 1.0 {INR} Normal [facility] Comment on above: Result Comment: [...] Coag time (PPP) 10.0 s Normal 8.1-13.7 [facility] Type and Screen Capture 3 sc rn cellon 10-13-2017 Bilirubin (total) PATIENT: DYAN GARCIA LOC: [facility] BILL# : [id number] : 1960 SEX: FORDERED BY: BASIM CHENG ORDERED : 10/13/2017 12:41 COLLECTED: 10/13/2017 13:24ORDER : [id number] RECEIVED : 10/13/2017 13:24 T EST NAME RESULT UNITS RANGES ABN FL STABORH Capture A POS FAntibody 3 Cell Scrn Captu NEG F Normal [facility] Urinalysis, reflex to cultur gabbie 10-13-2017 Bilirubin Ql (U) Negative Normal Negative [facility] Urine Reflexed to Culture Not Indicated Normal [facility] Urine, clarity Clear Normal Clear [facility] Urine, color Yellow Normal Straw/Dale [facility] Urine, glucose presence Negative Normal Negative [facility] Urine, hemoglobin presence Negative Normal Negative [facility] Urine, ketones presence Negative Normal Negative [facility] Urine, leukocyte esterase presence Negative Normal Negative [facility] Urine, nitrite presence Negative Normal Negative [facility] Urine, pH 5.5 [pH] Normal 5.0-9.0 [facility] Urine, protein presence Negative Normal Negative [facility] Urine, specific gravity 1.018 Normal 1.005-1.03 [facility] Urine, urobilinogen 0.2 {Rajwinder'U}/dL Normal < 2.0 [facility] Social History Date Type Detail Facility Start: 07-21-2023 End: 08-18-2023 Sex Assigned At [employer] [facility] Start: 07-21-2023 End: 08-18-2023 Alcohol intake Current drinker of alcohol (finding) [facility] Start: 07-21-2023 End: 08-18-2023 History of Social function [facility] Start: 07-06-2018 End: 05-24-2023 Tobacco smoking status [facility] Ex-smoker [facility] Start: 05-24-2023 Tobacco use and exposure Smokeless tobacco non-user [facility] Start: 12-30-2022 Alcohol Comment caffiene 1-2 c ups daily [facility] Start: 1960 Sex Assigned At Not on file [facility] Start: 1960 Sex Assigned At Female F [facility] Unknown if ever smoked [facility] Other Tobacco smoking status No Smokin g Status Entered [facility] End: 07-11-1990 History of tobacco use Current smoker [facility] End: 07-11-1990 History of tobacco use Cigarette Smoker [facility] How often to you hav e a drink containing alcohol? Monthly or less [facility] How many standard drinks containing alcohol do you have on a typical day? 1 or 2 [facility] How often do you hav e 6 or more drinks on 1 occasion? Weekly [facility] Vital Signs Date Time Vital Sign Value Performing Clinician Facility 09-28-2023 15:16-0400 Body height 165.1 cm [facility] 09-28-2023 15:16-0400 Body mass index (BMI) [Ratio] 27.8 kg/m2 [facility] 09-28-2023 15:16-0400 Body weight 75.92 kg [facility] 09-28-2023 15:16-0400 Diastolic blood pressure 68 mm[Hg] [facility] 09-28-2023 15:16-0400 Heart rate 80 /min [facility] 09-28-2023 15:16-0400 Respiratory rate 12 /min [facility] 09-28-2023 15:16-0400 Systolic blood pressure 130 mm[Hg] [facility] 09-05-2023 21:48-0500 Body height 166.37 cm John Ball Other [facility] Other 09-05-2023 16:33-0500 Body height 165.1 cm [facility] 09-05-2023 16:33-0500 Body mass index (BMI) [Ratio] 28.5 kg/m2 [facility] 09-05-2023 16:33-0500 Body weight 77.79 kg [facility] 09-05-2023 16:33-0500 Diastolic blood pressure 69 mm[Hg] [facility] 09-05-2023 16:33-0500 Heart rate 97 /min [facility] 09-05-2023 16:33-0500 Systolic blood pressure 115 mm[Hg] [facility] 08-18-2023 15:40-0500 Body height 162.6 cm Jordan [employer] Work Phone: [facility] 08-18-2023 15:40-0500 Body mass index (BMI) [Ratio] 28.15 kg/m2 Jordan [employer] Work Phone: [facility] 08-18-2023 15:40-0500 Body temperature 97.11 [degF] Jordan [employer] Work Phone: [facility] 08-18-2023 15:40-0500 Body weight 74.39 kg Joradn [employer] Work Phone: [facility] 08-17-2023 15:00-0500 Body height 166.37 cm John Ball Other [facility] Other 08-17-2023 15:00-0500 Body mass index (BMI) [Ratio] 28.12 kg/m2 John Ball Other [facility] Other 08-17-2023 15:00-0500 Body weight 77.84 kg John Ball Other [facility] Other 08-17-2023 15:00-0500 Diastolic blood pressure 79 mm[Hg] John Ball Other [facility] Other 08-17-2023 15:00-0500 Respiratory rate 12 /min John Ball Other [facility] Other 08-17-2023 15:00-0500 Systolic blood pressure 126 mm[Hg] John Ball Other [employer] Other 04-07-2023 14:00-0400 Body temperature 97.52 [degF] Jordan Yuan [facility] 04-07-2023 14:00-0400 Diastolic blood pressure 63 mm[Hg] Jordan Yuan [facility] 04-07-2023 14:00-0400 Heart rate 88 /min Jordan Yuan [facility] 04-07-2023 14:00-0400 Mean blood pressure 76 mm[Hg] Jordan Yuan [facility] 04-07-2023 14:00-0400 SaO2% (BldA) [Mass fraction] 94 % Jordan Yuan [facility] 04-07-2023 14:00-0400 Systolic blood pressure 101 mm[Hg] Jordan Yuan [facility] 04-07-2023 08:47-0400 Diastolic blood pressure 75 mm[Hg] Jordan Yuan [facility] 04-07-2023 08:47-0400 Systolic blood pressure 125 mm[Hg] Jordan Yuan [facility] 04-07-2023 07:45-0400 Blood Pressure Location Jordan Yuan [facility] 04-07-2023 07:45-0400 Body temperature 97.88 [degF] Jordan Yuan [facility] 04-07-2023 07:45-0400 Diastolic blood pressure 75 mm[Hg] Jordan Yuan [facility] 04-07-2023 07:45-0400 Heart rate 72 /min Jordan Yuan [facility] 04-07-2023 07:45-0400 Hourly Rounding Jordan Yuan [facility] 04-07-2023 07:45-0400 Mean blood pressure 92 mm[Hg] Jordan Yuan [facility] 04-07-2023 07:45-0400 Promise to Return Jordan Yuan [facility] 04-07-2023 07:45-0400 Respiratory rate 16 /min Jordan Yuan [facility] 04-07-2023 07:45-0400 SaO2% (BldA) [Mass fraction] 96 % Jordan Yuan [facility] 04-07-2023 07:45-0400 Systolic blood pressure 125 mm[Hg] Jordan Yuan [facility] 04-07-2023 06:17-0400 Hourly Rounding Jordan Yuan [facility] 04-07-2023 06:17-0400 Promise to Return Jordan Yuan [facility] 04-07-2023 05:05-0400 Hourly Rounding Jordan Yuan [facility] 04-07-2023 05:05-0400 Promise to Return Jordan Yuan [facility] 04-06-2023 22:20-0400 Blood Pressure Location Jordan Yuan [facility] 04-06-2023 22:20-0400 Body temperature 98.24 [degF] Jordan Yuan [facility] 04-06-2023 22:20-0400 Heart rate 74 /min Jordan Yuan [facility] 04-06-2023 22:20-0400 Mean blood pressure 78 mm[Hg] Jordan Yuan [facility] 04-06-2023 22:20-0400 Respiratory rate 16 /min Jordan [email or web address] [facility] 04-06-2023 22:20-0400 SaO2% (BldA) [Mass fraction] 93 % Jordan [email or web address] [facility] 04-06-2023 20:10-0400 Heart rate 65 /min Jordan [email or web address] [facility] 04-06-2023 20:01-0400 Body temperature 97.34 [degF] Jordan [email or web address] [facility] 04-06-2023 20:00-0400 Mean blood pressure 86 mm[Hg] Jordan [email or web address] [facility] 04-06-2023 16:17-0400 Mean blood pressure 97 mm[Hg] Jordan [email or web address] [facility] 04-06-2023 16:16-0400 Body temperature 97.52 [degF] Jordan [email or web address] [facility] 04-06-2023 13:49-0400 Mean blood pressure 88 mm[Hg] Jordan [email or web address] [facility] 04-06-2023 12:45-0400 Respiratory rate 13 /min Jordan [email or web address] [facility] 04-06-2023 12:35-0400 Respiratory rate 10 /min Jordan [email or web address] [facility] 04-06-2023 12:20-0400 Respiratory rate 17 /min Jordan [email or web address] [facility] 04-06-2023 11:37-0400 Body temperature 96.98 [degF] Jordan [email or web address] [facility] 04-06-2023 06:39-0400 Heart rate 68 /min Jordan [email or web address] [facility] 03-24-2023 14:52-0400 Diastolic blood pressure 76 mm[Hg] Jordan Yuan [facility] 03-24-2023 14:52-0400 Heart rate 67 /min Jordan Yuan [facility] 03-24-2023 14:52-0400 Mean blood pressure 99 mm[Hg] Jordan Yuan [facility] 03-24-2023 14:52-0400 Systolic blood pressure 144 mm[Hg] Jordan Yuan [facility] 03-24-2023 14:52-0400 Heart rate 68 /min Jordan Yuan [facility] 03-24-2023 14:52-0400 SaO2% (BldA) [Mass fraction] 99 % Jordan [email or web address] [facility] 03-24-2023 14:52-0400 Diastolic blood pressure 75 mm[Hg] Jordan Yuan [facility] 03-24-2023 14:52-0400 Mean blood pressure 93 mm[Hg] Jordan Yuan [facility] 03-24-2023 14:52-0400 Systolic blood pressure 128 mm[Hg] Jordan Yuan [facility] 03-24-2023 14:51-0400 Respiratory rate 16 /min Jordan Yuan [facility] 01-10-2023 15:00-0400 Body height 166.37 cm John Ashby Other [facility] Other 01-10-2023 15:00-0400 Body mass index (BMI) [Ratio] 27.04 kg/m2 John Ball Other [employer] [facility] [employer] Other 01-10-2023 15:00-0400 Body weight 74.84 kg John [employer] [facility] Other [facility] Other 01-10-2023 15:00-0400 Diastolic blood pressure 86 mm[Hg] John Ball Other [facility] Other 01-10-2023 15:00-0400 Respiratory rate 12 /min John Ball Other [facility] Other 01-10-2023 15:00-0400 Systolic blood pressure 124 mm[Hg] John Ball Other [facility] Other 12-09-2022 09:00-0400 Body height 166.37 cm John Ball Other [employer] Other 12-09-2022 09:00-0400 Body mass index (BMI) [Ratio] 27.33 kg/m2 John Ball Other [facility] Other 12-09-2022 09:00-0400 Body weight 75.66 kg John Ball Other [employer] Other 12-09-2022 09:00-0400 Diastolic blood pressure 71 mm[Hg] John Ball Other [employer] Other 12-09-2022 09:00-0400 Respiratory rate 12 /min John Ball Other [employer] Other 12-09-2022 09:00-0400 Systolic blood pressure 111 mm[Hg] John Ball Other [facility] Other 11-09-2022 15:00-0400 Body height 166.37 cm John Ball Other [employer] Other 11-09-2022 15:00-0400 Body mass index (BMI) [Ratio] 27.36 kg/m2 John Ball Other [employer] Other 11-09-2022 15:00-0400 Body weight 75.75 kg John Ball Other [facility] Other 11-09-2022 15:00-0400 Diastolic blood pressure 80 mm[Hg] John Ball Other [employer] Other 11-09-2022 15:00-0400 Respiratory rate 12 /min John Ball Other [facility] Other 11-09-2022 15:00-0400 Systolic blood pressure 135 mm[Hg] John Ball Other [facility] Other 07-26-2022 16:30-0500 Body height 166.37 cm John Ball Other [facility] Other 07-26-2022 16:30-0500 Body mass index (BMI) [Ratio] 26.28 kg/m2 John Ball Other [facility] Other 07-26-2022 16:30-0500 Body weight 72.76 kg John Ball Other [facility] Other 07-26-2022 16:30-0500 Diastolic blood pressure 78 mm[Hg] John Ball Other [facility] Other 07-26-2022 16:30-0500 Respiratory rate 12 /min John Ball Other [facility] Other 07-26-2022 16:30-0500 Systolic blood pressure 122 mm[Hg] John Ball Other [facility] Other Functional Status Date Assessment Result Facility 03-24-2023 Functional Status No [facility] Clinical Notes 10-22-2021 to 11-04-2023 Kathi Neumann - 08/18/2023 3:45 PM EST Note Date & Type Note Facility 11-04-2023 Note [place] [facility] Subjective Radha Zaidi is a 63 y.o. year old female patient being seen for Follow-up (2 year /Patient has been taking metoprolol 1 tablet QD) Patient Active Problem List Diagnosis Chronic systolic congestive heart failure (CMS/HCC) Nonischemic cardiomyopathy (CMS/HCC) Mixed hyperlipidemia Family History Family history unknown: Yes DOMINIC Garcia presents for follow up. She has hypertension, rheumatoid arthritis and in 2012 had acute pericarditis that resolved on colchicine therapy. She has history of elevated heart rate with readings of about 90-100 bpm. She did not tolerate metoprolol in the past and she did well on diltiazem. Cardiac catheterization in 2011 showed normal coronary arteries and normal LV systolic function by ventriculography. Her echocardiogram in 2011 showed EF of 40%. Her follow up echocardiogram 11/11/2015 was normal. She is on treatment with lisinopril and metoprolol for chronic systolic heart failure with improved ejection fraction. In the past she was admitted to [facility] with pneumonia and empyema, underwent chest tube, decortication and thoracotomy. her last visit with us was on 12/16/2021. Today she reports that she has been doing reasonably well. she denies chest pain, shortness of breath, palpitations, dizziness, syncope and leg edema. she has good exercise tolerance. There is no claudication. she recently underwent right shoulder surgery. She is recovering from that. Her arm is in a sling. Review of Systems Cardiovascular: Negative for chest pain, claudication, cyanosis, dyspnea on exertion, irregular heartbeat, leg swelling, near-syncope, orthopnea, palpitations, paroxysmal nocturnal dyspnea and syncope. Objective Visit Vitals BP 128/82 (BP Location: Left arm, Patient Position: Sitting, BP Cuff Size: Adult) Pulse 84 Resp 16 Ht 1.651 m (5' 5 ) Wt 75.2 kg (165 lb 12.8 oz) SpO2 97% BMI 27.59 kg/m??? BSA 1.86 m??? Physical Exam Constitutional: Appearance: She is well-developed. She is not ill-appearing. HENT: Head: Normocephalic and atraumatic. Nose: Nose normal. Eyes: General: No scleral icterus. Pupils: Pupils are equal, round, and reactive to light. Neck: Thyroid: No thyromegaly. Vascular: No JVD. Cardiovascular: Rate and Rhythm: Normal rate and regular rhythm. Pulses: Radial pulses are 2+ on the right side and 2+ on the left side. Heart sounds: Normal heart sounds. No murmur heard. No friction rub. No gallop. Pulmonary: Effort: Pulmonary effort is normal. No respiratory distress. Breath sounds: Normal breath sounds. No wheezing or rales. Chest: Chest wall: No tenderness. Abdominal: General: Bowel sounds are normal. There is no distension. Palpations: Abdomen is soft. Tenderness: There is no abdominal tenderness. Musculoskeletal: General: No swelling. Cervical back: Neck supple. Comments: Right arm in sling Skin: General: Skin is warm and dry. Neurological: General: No focal deficit present. Mental Status: She is alert and oriented to person, place, and time. Psychiatric: Mood and Affect: Mood normal. Behavior: Behavior is cooperative. Judgment: Judgment normal. Allergies No Known Allergies Medications Current Outpatient Medications: acetaminophen (Tylenol) 325 mg tablet, Take 650 mg by mouth., Disp: , Rfl: aspirin 81 mg EC tablet, Take 1 tablet by mouth in the morning., Disp: , Rfl: buPROPion XL (Wellbutrin XL) 300 mg 24 hr tablet, Take 300 mg by mouth., Disp: , Rfl: citalopram (CeleXA) 20 mg tablet, TAKE 1 TABLET BY MOUTH EVERY DAY AT BEDTIME *BEGIN AFTER 30 DAYS*, Disp: , Rfl: docusate sodium (Colace) 100 mg capsule, Take 100 mg by mouth if needed., Disp: , Rfl: HYDROcodone-acetaminophen ([place]) 5-325 mg tablet, TAKE 1 TABLET BY MOUTH 3 TIMES A DAY NEEDED FOR PAIN*MUS LAST 30 DAYS, Disp: , Rfl: leflunomide (Arava) 10 mg tablet, 10 mg., Disp: , Rfl: methylPREDNISolone (Medrol Dospak) 4 mg tablets, , Disp: , Rfl: omeprazole (PriLOSEC) [address] capsule, 40 mg., Disp: , Rfl: pregabalin (Lyrica) 150 mg capsule, , Disp: , Rfl: Rinvoq 15 mg tablet extended release 24 hr, , Disp: , Rfl: tiZANidine (Zanaflex) 4 mg tablet, tizanidine 4 mg tablet, Disp: , Rfl: valACYclovir (Valtrex) 1 gram tablet, , Disp: , Rfl: lisinopril 5 mg tablet, Take 1 tablet (5 mg) by mouth in the morning., Disp: 90 tablet, Rfl: 3 metoprolol succinate XL (Toprol-XL) 100 mg 24 hr tablet, Take 1 tablet (100 mg) by mouth in the morning. Do not crush or chew., Disp: 90 tablet, Rfl: 3 Recent Labs No visits with results within 6 Month(s) from this visit. Latest known visit with results is: [facility] Encounter on 03/12/2020 Component Date Value Glucose POC 03/12/2020 103 (H) Blood testing 08/30/2023: Hemoglobin 12.5, platelets 181, potassium 3.8, BUN 20, creatinine 0.96, EGFR 59, LFTs normal, triglycerides 101, cholesterol 246, LDL 152, HDL 74. Imagin (more content not included)... 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 She states her hand has improved. She points to the anterior aspect of the shoulder as the location of her discomfort. SUBJECTIVE: MEDICATIONS: Current Outpatient Medications Medication Instructions aspirin 81 MG EC tablet 1 tablet, Oral, Daily buPROPion XL (Wellbutrin XL) 300 MG 24 hr tablet citalopram (CeleXA) 10 MG tablet HYDROcodone-acetaminophen ([place]) 5-325 MG tablet TAKE 1 TABLET BY [...] Right Padandalam HAND SURGERY Bilateral R - 1999 ; L - 2001 LUMBAR DISCECTOMY 2000 LUMBAR SPINE SURGERY x2 - 1990 & 1991 ORIF TIBIA FRACTURE 2019 ORIF WRIST FRACTURE ROTATOR CUFF REPAIR 2016 SHOULDER SURGERY Right [address] Estrella SPINAL FUSION 2000 TOTAL SHOULDER ARTHROPLASTY Right 04/06/2023 R REV - JAB FAMILY HISTORY: Family History Problem Relation Name [...] Jordan Yuan D.O. documented in this encounter [facility] 08-17-2023 Evaluation note Encounter Date Diagnosis Assessment [...] Due to rheumatoid medication UTD w/ vaccines. Aug, Screening mammogram for breast cancer (ICD-10 - Z12.31) Instructed patient on monthly SBE and yearly mammograms. Aug, Hx of rheumatoid arthritis (ICD-10 - Z87.39) Symptoms tolerable, continue medical treatment f/u Rheumatology [facility] Other 12-19-2023 Evaluation note* Encounter Date Diagnosis [...] Jun, Immunosuppressed sta tus (ICD-10 - D84.9) [facility] Other 09-28-2023 Evaluation + Plan noteExtracted from: [...] Extracted from: Title:Fredi Basic PRE Author:Hill Rai DO. Date:04/06/23 Plan [place] Citizen [employer] of Anesthesiologists (ASA) physical status classification: Class II. Anesthetic Preoperative Plan: Anesthesia General. Regional Interscalene block. [facility]09-28-2023 NotePatient: RADHA ZAIDI Age: 62 years Sex: [...] 15 mg, 1 tab(s), Oral, Daily, 0 Refill(s)[facility]Result Comment: Electronically Signed By: Jordan Yuan DO\.br\Date and Time Signed: 04/07/23 07:42 [id number] Hospital Discharge instructions Patient Education 04/07/2023 07:41:33 Iris Yuan - Shoulder Replacement (Custom) [place], [place] [facility] DISCHARGE INSTRUCTIONS: SHOULDER REPLACEMENT [...] or the developmentof persistent vomiting. Jordan Yuan, DO [facility] [address] [place], [place] [id number] Reviewed: Follow Up Care 03/09/2023 13:56:15 With:Jordan Yuan Address: [address] [place] [id number] Business (1) When:04/19/2023 14:15:00 With:JOHN ASHBY Address: [address] [place] [id number] Business (1) When: Unknown [facility]09-26-2023 Note [id number]:127[facility] 03-26-2023 Evaluation note* Encounter Date Diagnosis Assessment Notes Treatment Notes Treatment Clinical Notes Mar, Major depressive disorder, single episode, 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 [employer] Other 07-05-2023 Evaluation note* Encounter Date Diagnosis Assessment Notes Treatment Notes Treatment Clinical Notes Jan, Overweight (ICD-10 - E66.3) [facility] [employer] Other 07-03-2023 Evaluation note* Encounter Date Diagnosis [...] nervousness and lightheadedness are common w/d symptoms [facility] Other 06-02-2023 Evaluation note* Encounter Date Diagnosis Assessment Notes Treatment Notes Treatment Clinical Notes Dec, Overweight (ICD-10 - E66.3) [facility] Other 06-01-2023 Evaluation note* Encounter Date Diagnosis [...] will be very costly. Suggested referral to [facility] Other 05-02-2023 Evaluation note* Encounter Date Diagnosis [...] normal BMI. Monitor BP while taking Adipex [facility] Other 03-30-2023 NoteCONSULTATION PROCEDURE DATE: 10/07/2022 PROCEDURE: [...] at least 80% reduction of pain symptoms.[facility] [id number] NoteCONSULTATION CONSULTATION DATE: 10/07/2022 ADDENDUM: On examination of the right shoulder, the patient did have a positive right sided full can test, a positive Neida's test, Apley's test and cross body test. All four positive on examination date 10/07/2022.[facility] [id number] NoteCONSULTATION CONSULTATION DATE: 10/07/2022 TO: John Ashby [...] activity modification, use of Zanaflex, Lyrica and [place]. RECOMMENDATIONS: I recommend proceeding with a right [...] right shoulder without contrast and physical therapy.[facility] [id number] Evaluation note* Encounter Date Diagnosis Assessment Notes Treatment Notes Treatment Clinical Notes Aug, Anemia (ICD-10 - D64.9) [facility] Other 01-16-2023 Evaluation note* Encounter Date Diagnosis [...] Healthy diet, exercise w/o change in treatment [facility] Other 12-30-2022 NoteCONSULTATION PROCEDURE DATE: 07/09/2022 PREOPERATIVE DIAGNOSIS: Right [...] will be followed up in the office.[facility] [id number] NoteCONSULTATION CONSULTATION DATE: 07/09/2022 HISTORY OF PRESENT [...] possible increase in dose. She also takes [place] 5/325 t.i.d. and Zanaflex 4 mg three [...] three months' time, unless otherwise indicated. [facility] [id number] NoteCONSULTATION CONSULTATION DATE: 05/20/2022 HISTORY OF PRESENT [...] medications include Celexa, Lyrica 50 mg b.i.d., [place] 5/325 t.i.d. and Zanaflex. Patient is having [...] level of C3-4. We will refill her [place] at 5/325 t.i.d. Supportive home measures were discussed such as heat and a menthol heat rub, as well as vitamin compliance. The patient agrees to move forward with the plan, will be followed up in the clinic thereafter.[facility] [id number] NoteCONSULTATION PROCEDURE DATE: 02/17/2022 PRE AND POSTOPERATIVE [...] will be followed up in the clinic.[facility] [id number] NotePROCEDURE: XR SHOULDER RT 2V or > COMPARISON: None. HISTORY: Pain of right shoulder joint FINDINGS: BONES:No acute fracture or dislocation. Minimal degenerative changes. Cervical fusion hardware SOFT TISSUES:Negative. No visible soft tissue swelling. EFFUSION:None visible. OTHER: Negative. IMPRESSION: No acute abnormality Electronically authenticated by: VANDANA COLLINS Date: 2022-02-16 19:11[facility] [id number] NoteCONSULTATION CONSULTATION DATE: 02/02/2022 CHIEF COMPLAINT: Right [...] aggravates the pain. The patient currently takes [place] 5/325 t.i.d., wellbutrin 150 mg, Lyrica 50 [...] point tenderness along the right bicipital tendon. 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 IMPRESSION: Current working diagnosis [...] would like to proceed. CC: John Ashby D.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 Cold weather and bending bother her as well. Medications include Lyrica 75 mg t.i.d., which she has not been taking for the past two months; Celexa, [place] 5/325 t.i.d., Zanaflex and RINVOQ. She feels that her pain is managed well with her [place], but is concerned about the neuropathic pain [...] in need of a refill for her [place] today, which we will give 5/325 t.i.d. [...] in three months' time unless otherwise indicated. [facility] Signed and Approved by: JACQUIE OLIVAS . 11/12/2021 16:27:00[facility] Future Appointments Appointment Date:04/06/2023 09:30:00 AM Scheduled Provider: Location:[facility] Other Evaluation note* Diagnosis Right shoulder pain, unspecified chronicity- Primary documented in this encounter [facility] Diagnosis Onset Date Resolution Status Hypertension acute Overweight acute PSVT (paroxysmal supraventricular tachycardia) [facility] Work Phone: History general Narrative - Reported* Type Description [...] Surgical History ORIF, proximal fibula Surgical History [facility] 2011 Surgical History Lumbar fusion Surgical History ACDF C4-6 05/30 Hospitalization History See Above zerved Other History general Narrative - Reported* Type [...] Surgical History ORIF, proximal fibula Surgical History [facility] 2011 Surgical History Lumbar fusion Surgical History ACDF C4-6 05/30 Surgical History Right reverse total shoulder ar throplasty 03/2023 Hospitalization History See Above zerved Other Hospital course Narrative No data available for this section [facility] No data available for this section [facility] No data available for this section [facility] Summary Purpose Family History No Family History Records Found Relationship Condition Age at Onset Recorded Date/T roshni brother Malignant neoplasm Unknown father Diabetes mellitus Unknown Malignant neoplasm Unknown Not Specified Malignant neoplasm Unknown Diabetes mellitus Unknown natural son Heart disease Unknown sister Heart disease Unknown Advance Directives No Advanced Directives Records Found Advance Directive Response Recorded Date/ Time Advance Directives No April 24, 2018 1:59pm Chief Complaint and Reason for Visit Chief Complaint Amb Documentation Amb Documentation Amb Documentation Check Up Reason for Visit Hypertension Overweight PSVT (paroxysmal supraventricular tachycardia) Additional Source Comments INFORMATION SOURCE (unrecogn ized section and content) DATE CREATED AUTHOR 12/29/2017 [facility] DATE CREATED AUTHOR AUTHOR'S ORGANIZ ATION 08/29/2018 [facility] DATE CREATED AUTHOR AUTHOR'S ORGANIZ ATION 05/13/2020 [facility] DATE CREATED AUTHOR AUTHOR'S ORGANIZ ATION 10/15/2022 [facility] DATE CREATED AUTHOR AUTHOR'S ORGANIZ ATION 09/10/2023 [facility] DATE CREATED AUTHOR AUTHOR'S ORGANIZ ATION 11/07/2023 [facility] DATE CREATED AUTHOR AUTHOR'S ORGANIZ ATION 11/17/2023 [facility] EPIC REASON FOR VISIT (unrecogniz ed section and content) Reason Comments Follow-up R rev TSA 04/06/23 Patient Care team informatio n (unrecognized section and content) Press Tender Incendiary Grenade Relationship Specialty Start Date End Date John Ashby MD [address] [place] [id number] PCP - General Internal Medicine 12/23/22 [employer]ade Relationship Specialty Start Date End Date John Ashby MD [address] [place] [phone] PCP - General Internal Medicine 12/23/22 Team Status: Active Member Role Status Dates John Ashby , Primary Care Provider Active Team Status: Active Member Role Status Dates John Ashby , Primary Care Provide r, Attending Provider Active Start: August 30, 2023 Team Status: Active Member Role Status Dates John Ashby , Primary Care Provider Active Start: September 02, 2023 SHERWIN Quiroga Attending Provider Active St art: September 02, 2023 Team Status: Active Member Role Status Dates John Ashby , Primary Care Provider Active Start: September 05, 2023 SHERWIN Quiroga Attending Provider Active St art: September 05, 2023 Team Status: Inactive Member Role Status Dates John Ashby , Primary Care Provide r, Attending Provider Active Start: September 28, 2023 End: September 28, 2023 Goals (unrecognized section and content) Goals may be documented in a n alternate section FOR RECORDS PERTAINING TO PATIENTS WHO ARE [...] BE BASED ON THE PRIMARY CLINICAL RECORDS. [facility]. provides no warranty or guarantee of the accuracy or completeness of information in this document.
== END 2023-12-13 16:05 | disposition home or self-care (01) ==
PROVIDERS: PCP Internal Medicine; Visit Provider Anesthesiology Pain Medicine
DX: M25.512 Pain in left shoulder (principal)
CPT/HCPCS: 73030

== ENCOUNTER 2023-12-13 16:19 | Outpatient (OUT) | payer BC, MEDICARE, SELFPAY ==
--- NOTE | 2023-12-13 16:24 | MM_ITS ---
Patient Name: ALEXANDER ZAIDI MR#: [id number] : 1960 Exam Date: 12/13/2023 Ordering Doctor: DR John Mcdaniels D.O. RADIOLOGY REPORT PROCEDURE: MM TOMOSYNTHESIS SCREENING BI COMPARISON: MG MAMM SCREEN 3D BRENNA CAD, 06/08/2022. MG MAMM SCREEN BRENNA W CAD, 01/27/2017. MG MAMM BRENNA SCRN W CAD DIG, 01/09/2016. MG MAMM BRENNA SCRN W CAD DIG, 10/30/2013. INDICATIONS: screening Calculator Name NCI Breast Cancer Risk Assessment Tool 5 Year Breast Cancer Risk 2.90% Lifetime Breast Cancer Risk 12.10% Personal Breast Cancer No Personal Ovarian Cancer No Treatments None Family Cancers Mother with breast cancer at age ~40; Father with prostate cancer at age 72. LOCATION: [facility] BREAST COMPOSITION: There are scattered areas of fibroglandular density. FINDINGS: DIAGNOSTIC CATEGORY 1--NEGATIVE. RIGHT BREAST: No significant suspicious finding. No significant change has occurred. LEFT BREAST: No significant suspicious finding. No significant change has occurred. RECOMMENDATIONS: ROUTINE MAMMOGRAM AND CLINICAL EVALUATION IN 12 MONTHS. PLEASE NOTE: A NORMAL MAMMOGRAM DOES NOT EXCLUDE THE POSSIBILITY OF BREAST CANCER. A CLINICALLY SUSPICIOUS PALPABLE LUMP SHOULD BE BIOPSIED. Dictated by: Scott Teixeira M.D. on 12/15/2023 at 14:23 Approved by: Scott Teixeira M.D. on 12/15/2023 at 14:24
== END 2023-12-13 16:20 | disposition home or self-care (01) ==
LOC: MAMMO 16:20
PROVIDERS: PCP Internal Medicine; Visit Provider Internal Medicine
DX: Z12.31 Encounter for screening mammogram for malignant neoplasm of breast (principal); Z80.3 Family history of malignant neoplasm of breast; Z80.42 Family history of malignant neoplasm of prostate
CPT/HCPCS: 77063; 77067

== ENCOUNTER 2024-01-01 07:15 | Emergency (ER) | payer BC, MEDICARE, SELFPAY ==
[2024-01-01 07:20] VITALS: BP 101/72; PULSE 85; TEMP 36.6; O2SAT 99; BMI 55.0
--- OUTSIDE RECORDS SUMMARY | 2024-01-01 07:23 | XMS_ITS | CCD ---
Author Organization [facility] CliniSyla Care Team Providers Care Steamblaster Name Role Phone BASIM, BARRY H. Unavailable Unavailable BASIM, BARRY H. Unavailable Unavailable BALL, JOHN E Unavailable Unavailable BASIM, BARRY H. Unavailable Unavailable BALL, JOHN E Unavailable Unavailable EBRAHEIM, MARYURI Attending Unavailable EBRAHEIM, MARYURI Admitting Unavailable BALL, JOHN Referring Unavailable BALL, JOHN Primary Care Unavailable EBRAHEIM, MARYURI Surgeon Unavailable DE Procedure Practitioner Unavailab le DE Procedure Practitioner Unavailab TASH Chery Surgeon Unavailable EBRAHEIM, MARYURI Attending Unavailable SYMONE, JOHN Primary Care Unavailable SYMONE, JOHN Referring Unavailable EBRAHEIM, MARYURI Admitting Unavailable Symone, John Unavailable DANDRE ., DR SO Estrada Attending Unavailable BALL, DR LOPEZ Primary Care Unavailable AMOS ., DR SO Estrada Admitting Unavailable DENNIS, DR VANDANA Martínez Consulting Unavailable AMOS ., DR SO Estrada Consulting Unavailable OLIVAS ., JACQUIE Landers Unavailable SYMONE, DR LOPEZ Primary Care Unavailable [...] Consulting Unavailable SYMONE, DR LOPEZ Attending Unavailable BALL, DR LOPEZ Admitting Unavailable BALL, DR LOPEZ Primary Care Unavailable SYMONE, DR LOPEZ Consulting Unavailable SYMONE, DR LOPEZ Attending Unavailable BALL, DR LOPEZ Admitting Unavailable ZIEBER, DR JULIAN Moran Consulting Unavailable SYMONE, DR LOPEZ Primary Care Unavailable DANDRE ., DR SO Estrada Admitting Unavailable OLIVAS ., JACQUIE Consulting Unavailable AMSO ., DR SO Estrada Attending Unavailable SYMONE, DR LOPEZ Primary Care Unavailable GAUTAM, DR JOHNSON Attending Unavailable FLOREZ, DR JOHNSON [...] OLIVAS ., JACQUIE Consulting Unavailable LAKSHMIPATHY ., NARENDHAMILTONATH Admitting Amy vailable LAKSHMIPATHY ., NICOLE Consulting Amy vailable LAKSHMIPATHY ., NICOLE Attending Amy vailable SYMONE, DR LOPEZ Primary Care Unavailable LAKSHMIPATHY ., [...] FLOREZ, DR JOHNSON Consulting Unavailable LAKSHMIPATHY ., NARENDHAMILTONATH Admitting Amy vailable LAKSHMIPATHY ., NICOLE Attending Amy vailable BALL, DR LOPEZ Primary Care Unavailable BROWN, VANDANA Consulting Unavailable LAKSHMIPATHY ., NICOLE Consulting Amy vailable JOHN ASHBY Primary Care Physician Cesia Artis Unavailable Unavailable John Ashby MD [...] Referring Unavailable BROWN, JORDAN A Referring Unavailable JORDAN YUAN Attending Unavailable JORDAN YUAN Attending Unavailable JORDAN YUAN Referring Unavailable JORDAN YUAN Attending Unavailable Allergies Allergy Classification Reported Allergen(s) Allergy Type Date of Onset Reaction(s) Facility (1 source) 19520,00; Translations: [Unknown] Propensity to adverse reactions (disorder) 2 [facility] Repository (18 sources) Cephalexin Drug Allergy Unknown Antuit Other (7 sources) patient allergy list reviewed by nurse or physicia Propensity to adverse reactions 4 Comment:Done Antuit Other Medications Current Medications Medication Drug Class(es) Dates Sig (Normalized) Sig (Original) acetaminophen 325 mg / HYDROcodone bitartrate 5 mg oral tablet (3 sources) Opioid Agonist Start: 06-30-2023 take 1 tablet by mouth three times daily as needed HYDROcodone-aceta minophen ([place]) 5-325 MG tablet TAKE 1 TABLET BY MOUTH 3 TIMES A DAY NEEDED FOR PAIN*MUS LAST 30 DAYS 0 06/30/2023 Active acetaminophen 325 mg / oxyCODONE hydrochloride 5 mg oral tablet (5 sources) Opioid Agonist Start: 04-06-2023 Percocet 5 mg-325 mg oral tablet See Instructions, 40 tab(s), Refill(s) 0, 1-2 tab(s) Oral q4hr, [facility]/pharmacy #[id number], 160, cm, 03/25/23 6:16:00 EDT, Height/Length Dosing, 73.5, kg, 03/25/23 6:16:00 EDT, Weight Dosing Start Date: 04/06/23 Status: Ordered Start: 06-30-2018 End: 09-27-2023 take 1 tablet by mouth three times daily Oxycodone-Acetaminophen Discontinued 1 T AB PO Three times daily June 30, 2018 1:00am September 27, 2023 2:54pm 24 hr buPROPion hydrochlorid e 300 mg [...] pain, # 60 cap(s), Refills(s) 0, Pharmacy: [facility]/pharmacy #[id number], 160, cm, 03/25/23 6:16:00 EDT, Height/Length Dosing, 73.5, kg, 03/25/23 6:16:00 EDT, Weight Dosing Start Date: 04/06/23 Status: Ordered cephalexin 500 mg oral capsule (1 source) Cephalosporin Antibacterial Start: 04-06-2023 End: 04-13-2023 take 1 capsule by mouth every eight hours Keflex 500 mg Cap 500 mg = 1 cap(s), Oral, q8hr, X 7 day(s), # 21 cap(s), Refills(s) 0, Pharmacy: [facility]/pharmacy #[id number], 160, cm, 03/25/23 6:16:00 EDT, Height/Length Dosing, 73.5, kg, 03/25/23 6:16:00 EDT, Weight Dosing Start Date: 04/06/23 Stop Date: 04/13/23 Status: Ordered citalopram 10 mg oral tablet (13 sources) Serotonin Reuptake Inhibitor Start: 08-17-2023 take [...] constipation, # 20 cap(s), Refills(s) 0, Pharmacy: [facility]/pharmacy #[id number], 160, cm, 03/25/23 6:16:00 EDT, Height/Length Dosing, 73.5, kg, 03/25/23 6:16:00 EDT, Weight Dosing Start Date: 04/06/23 Status: Ordered leflunomide 10 mg oral tablet (20 sources) Antirheumatic Agent Start: 06-30-2018 End: 09-27-2023 take 1 tablet by mouth once daily Leflunomide (Arava) 10 mg tablet Active 10 MG PO Daily September 27, 2023 12:00am lisinopril 5 mg oral tablet (20 sources) [...] days Active pregabalin 150 mg oral capsule (8 sources) Start: 03-24-2023 take 1 capsule by [...] 2023 2:54pm take 1 capsule by mo [facility] every six hours tiZANidine HCl 4 MG [...] (Original) alendronic acid 70 mg oral tablet (2 sources) Bisphosphonate Start: 06-30-2018 End: 09-27-2023 take 1 tablet by mouth every week Alendronate (Fosamax) 70 mg Tablet Discontinued 70 MG PO every week June 30, 2018 1:00am September 27, 2023 2:54pm aspirin 81 mg delayed release oral tablet (5 sources) Platelet Aggregation Inhibitor, Nonsteroidal Anti-inflammatory Drug [...] hydrochloride 360 mg extended release oral tablet (2 sources) Calcium Channel Lisandra Start: 06-30-2018 End: 09-27-2023 take 360 mg by mouth once daily Diltiazem Hcl Discontinued 360 MG PO Daily June 30, 2018 1:00am September 27, 2023 2:50pm doxycycline hyclate 100 mg oral capsule (7 sources) Tetracycline-cl ass Drug Start: 09-27-2023 End: 09-28-2023 take 100 mg by mouth twice daily Doxycycline Hyclate Discontinued 100 MG PO Twice daily September 27, 2023 12:00am September 28, 2023 3:15pm Start: 06-28-2023 take 1 capsule by mo [facility] every twelve hours Doxycycline Hyclate 100 MG 1 capsule Orally Twice a day for 5 days Jun, Active Start: 07-06-2018 End: 09-27-2023 take 100 mg by mouth twice daily Doxycycline Hyclate Discontinued 100 MG PO Twice daily 10 July 06, 2018 1:00am September 27, 2023 2:50pm ibuprofen 800 mg oral tablet (2 sources) Nonsteroidal Anti-inflammatory Drug Start: 07-06-2018 End: 09-27-2023 [...] Active traZODone hydrochloride 100 mg oral tablet (2 sources) Serotonin Reuptake Inhibitor Start: 06-30-2018 End: 09-27-2023 [...] 03/31/2023 Active take 2 tablets by mo ut every twelve hours valACYclovir HCl 1 GM 2 tablets Orally Twice a day Active take 2 tablets by mo ut every twelve hours valACYclovir HCl 1 GM 2 tablets Orally Twice a day Active take 1 tablet by anne every twelve hours valACYclovir HCl 1 GM 1 tablet Orally Twice a day Active Problems Active Problems Problem Classification Problem Date Documented Date Episodic/Chronic Abdominal pain (20 sources) Indigestion; Translations: [Epigastric pain] Resolved: 05-05-2020 09-27-2023 Episodic Acute bronchitis (10 sources) Acute bronchitis; Translations: [Acute bronchitis due to other specified organisms] Episodic Anxiety disorders (20 sources) Generalized anxiety disorder; Translations: [Generalized anxiety disorder] Chronic Cardiac dysrhythmias (20 sources) Paroxysmal tachycardia; Translations: [Paroxysmal tachycardia, unspecified] Onset: 07-15-2017 Chronic Cardiac dysrhythmias (3 sources) Bradycardia 03-24-2023 Episodic Congestive heart failure; nonhypertensive (13 sources) Chronic systolic heart failure; Translations: [Chronic systolic (congestive) heart failure] Onset: 09-05-2018 09-27-2023 Chronic Deficiency and other anemia (15 sources) Anemia; Translations: [Anemia, unspecified] 09-27-2023 Episodic [...] (suspected) exposure to COVID-19] Episodic Intestinal infection (15 sources) Infectious colitis, enteritis and gastroenteritis; Translations: [Infectious gastroenteritis and colitis, unspecified] 09-27-2023 Episodic Malaise and fatigue (15 sources) Fatigue; Translations: [Other fatigue] 09-27-2023 Episodic [...] monitoring] Episodic Other aftercare (1 source) Other penitentiary (current) drug therapy; Translations: [OTH POOL [employer] CURRENT DRUG THERAPY] Onset: 09-17-2022 Episodic Other aftercare (8 sources) Therapeutic drug level - finding; Translations: [Encounter for therapeutic drug level monitoring] Episodic Other aftercare (2 sources) Encounter for therapeutic drug level monitoring; Translations: [Encounter for therapeutic drug level monitoring] Episodic Other circulatory disease (18 sources) History of pericarditis; Translations: [Personal history of other diseases of the circulatory system] Episodic Other circulatory disease (10 sources) H/O: cardiovascular disease; Translations: [Personal history of other diseases of the circulatory system] 09-27-2023 Episodic Other circulatory disease (1 source) Personal history of other diseases of the circulatory system; Translations: [Personal history of other diseases of the circulatory system] Episodic Other connective tissue disease (14 sources) Tear of right rotator cuff; Translations: [...] Onset: 11-06-2021 Chronic Other nervous system disorders (20 sources) Paresthesia; Translations: [Paresthesia of skin] 09-27-2023 [...] Chronic Other nutritional; endocrine; and metabolic disorders (19 sources) Overweight; Translations: [Overweight] 09-02-2023 Episodic Other nutritional; endocrine; and metabolic disorders (10 sources) Overweight; Translations: [Overweight] Episodic Other screening [...] examination] Onset: 01-05-2011 Episodic Other circulatory disease (10 sources) Orthostatic hypotension; Translations: [Orthostatic hypotension] Onset: [...] [Radiculopathy, cervical region] Onset: 10-20-2017 Episodic Syncope (11 sources) Syncope and collapse; Translations: [Syncope and [...] Range Facility Office Visiton 11-04-2023 Follow-up visit [id number] Radha Zaidi 1960 F Date Provider Department Center 11/04/2023 [facility]AR [facility] Family History Family history unknown: Yes Level of Service:55800 DE OFFICE/OUTPATIENT ESTABLISHED MOD MDM 30 MIN Reason for Visit and Comments: Follow-up [771379] - 2 year Patient has been taking metoprolol 1 tablet QD Normal [facility] CT Upper Extremity w/o Contr [...] Fields MD Transcribed by: DANISHA Technologist: ARNULFO Shah [facility] Lab Miscellaneous-LCon Lab Miscellaneous COMMENT Invalid Interpretation Code [facility] Comment on above: Result Comment: Test Ordered: [id number] Interleukin-6, Serum Interleukin-6, Serum <2.5 pg/mL Reference Range: 0.0-13.0 This test has not [...] endotracheal intubation or mechanical ventilation. Performed at: [address] [id number] PhD Saturnino Morse Performed By: #### 1 [id number] ####[facility] [id number] [place] [address] CBC w/ Auto Diffon 4 Basophil Absolute 0.0 E9/L Normal 0.0-0.2 [facility] Comment on above: Performed By: #### 2 [id number], [id number], [id number] #### [facility] Laboratory [address] [place] [address] Basophils/100 WBC (Bld) 0.4 % Normal 0.0-2.0 [facility] Comment on above: Performed By: #### 2 716136, [id number], [id number] #### [facility] [address] [place] [address] Eos Absolute 0.0 E9/L Normal 0.0-0.5 [facility] Comment on above: Performed By: #### 2 [id number], [id number], [id number] #### [facility] Laboratory [address] [place] [address] Eosinophils/100 WBC (Bld) 0.2 % Normal 0.0-8.0 [facility] Comment on above: Performed By: #### 2 017039, [id number], [id number] #### [facility] [address] [place] [address] Erythrocyte distribution width (RBC) [Ratio] 14.3 % High 10.9-14.2 [facility] Comment on above: Performed By: #### 2 956364, [id number], [id number] #### [facility] [address] [place] [address] Hematocrit (Bld) [Volume fraction] 40.0 % Normal 34.0-46.0 [facility] Comment on above: Performed By: #### 2 294253, 2130212, [id number] #### [facility] [address] [place] [address] Hemoglobin (Bld) [Mass/Vol] 12.7 g/dL Normal 12.0-16.0 [facility] Comment on above: Performed By: #### 2 396687, 5304666, [id number] #### [facility] [address] [place] [address] Lymph Absolute 0.9 E9/L Low 1.0-4.0 [facility] Comment on above: Performed By: #### 2 630935, 8686785, [id number] #### [facility] [address] [place] [address] Lymphocytes/100 WBC (Bld) 25.2 % Normal 14.0-50.0 [facility] Comment on above: Performed By: #### 2 204389, 2701896, [id number] #### [facility] [address] [place] [address] MCH (RBC) [Entitic mass] 30.6 pg Normal 27.0-34.0 [facility] Comment on above: Performed By: #### 2 616922, 4338068, [id number] #### [facility] [address] [place] [address] MCHC (RBC) [Mass/Vol] 31.7 g/dL Normal 31.4-36.0 [facility] Comment on above: Performed By: #### 2 916037, 0166484, [id number] #### [facility] [address] [place] [address] MCV (RBC) [Entitic vol] 96.5 fL Normal 80.0-100.0 [facility] Comment on above: Performed By: #### 2 983198, 4970250, [id number] #### [facility] [address] [place] [address] [place] Absolute 0.3 E9/L Normal 0.2-1.0 [facility] Comment on above: Performed By: #### 2 859315, 7326143, [id number] #### [facility] [address] [place] [address] Monocytes/100 WBC (Bld) 7.3 % Normal 4.0-14.0 [facility] Comment on above: Performed By: #### 2 132941, 1395395, [id number] #### [facility] [address] [place] [address] Neutro Absolute 2.3 E9/L Normal 2.0-7.5 [facility] Comment on above: Performed By: #### 2 839939, 2538931, [id number] #### [facility] [address] [place] [address] Neutro Auto 66.9 % Normal 36.0-75.0 [facility] Comment on above: Performed By: #### 2 776122, 7998987, [id number] #### [facility] [address] [place] [address] Platelet 257.0 E9/L Normal 150.0-500.0 [facility] Comment on above: Performed By: #### 2 011589, 1096898, [id number] #### [facility] [address] [place] [id number] Platelet mean volume (Bld) [Entitic vol] 7.4 fL Normal 6.4-10.8 [facility] Comment on above: Performed By: #### 2 413672, 4082448, [id number] #### [facility] [address] [place] [address] RBC 4.1 E12/L Low 4.3-5.9 [facility] Comment on above: Performed By: #### 2 033889, 0035035, 14559385 #### [facility] [address] [place] [address] WBC 3.4 E9/L Low 4.0-11.0 [facility] Comment on above: Performed By: #### 2 821699, 8596419, [id number] #### [facility] [address] [place] [address] CHEMISTRYOrdered By: SYSTEM SYSTEM on 09-06-2023 CRP mg/dL Normal <=1.9mg/dL Remisol Chem CRPon 09-06-2023 CRP [Mass/Vol] mg/L Normal <=1.9 [facility] Comment on above: Performed By: #### 2 800607, 7710934, [id number] #### [facility] [address] [place] [address] Consent for Treatmenton 08-12 Consent for Treatment [id number] .00TIFF Normal [facility] HEMATOLOGYOrdered By: SYSTEM SYSTEM on 09-06-2023 [...] Normal 80.0 - 100.0 fL Remisol Heme [place] Absolute 0.3 E9/L Normal 0.2 - 1.0 [...] 14 mm/h Normal 0 - 34 mm/hr [facility] HemeAutoSS Lab Miscellaneous-LCon 09-06 Test Code [id number] Invalid Interpretation Code [facility] Comment on above: Performed By: #### 1 [id number] ####[facility] [address] [place] [address] Test Name interleukin 6 Invalid Interpretation Code [facility] Comment on above: Performed By: #### 1 [id number] ####[facility] [address] [place] [address] Physician Orderon 09-06-2023 Physician Order [id number] .00TIFF Normal [facility] Reference Laboratory Testing Ordered By: Jojo Gonsales on 09-06-2023 Test Code [id number] 1 Invalid Interpretation Code [facility] SendOuts Test Name interleukin 6 Invalid Interpretation Code [facility] SendOutsSS Sed Rate Automatedon 024 ESR (Bld) [Velocity] 14 mm/h Normal 0-34 [facility] Comment on above: Performed By: #### 2 182899, 6852190, [id number] #### [facility] Laboratory [address] [place] [address] Physician Orderon 08-31-2023 Physician Order [id number] .00TIFF Normal [facility] Basophils Auto (Bld) [#/Vol] on 08-30-2023 Basophils (Bld) [#/Vol] 0.0 10 3/uL 0.0-0.1 [facility] Basophils/100 WBC Auto (Bld) on 08-30-2023 Basophils/100 WBC (Bld) 0.8 % 0.2-2.0 [facility] Cholesterol in LDL Calc [Mas s/Vol]on 08-30-2023 Cholesterol in LDL [Mass/Vol] 152.0 mg/dL [facility] Comment on above: <100 mg/dl [id number] 0-129 mg/dl NEAR OR ABOVE [id number] mg/dl BORDERLINE [id number] mg/dl HIGH>190 mg/dl VERY HIGH Cholesterol in VLDL Calc [Ma ss/Vol]on 08-30-2023 Cholesterol in VLDL [Mass/Vol] 20.2 mg/dL [facility] Eosinophils/100 WBC Auto (Bl d)on 08-30-2023 Eosinophils/100 WBC (Bld) 4.2 % 0.9-7.0 [facility] Erythrocyte distribution wid th Auto (RBC) [Ratio]on 08-30-2023 Erythrocyte distribution width (RBC) [Ratio] 13.4 % 11.0-15.0 [facility] Estimated glomerular filtrat ion rate (GFR) non- Americanon 08-30-2023 GFR/1.73 sq M.predicted among non-blacks MDRD (S/P/Bld) [Vol rate/Area] 59 mL/min/{1.73_m2} >=60 [facility] Globulin Calc (S) [Mass/Vol] on 08-30-2023 Globulin (S) [Mass/Vol] 3.4 g/dL [facility] Hematocrit Auto (Bld) [Volum e fraction]on 08-30-2023 Hematocrit (Bld) [Volume fraction] 39.5 % 36.0-48.0 [facility] Hemoglobin [Mass/volume] in Bloodon 08-30-2023 Hemoglobin (Bld) [Mass/Vol] 12.5 g/dL 12.0-16.0 [facility] Laboratory - Chemistry and C hemistry - challengeon 08-30-2023 Albumin [Mass/Vol] 3.7 g/dL 3.4-5.0 [facility] ALP [Catalytic activity/Vol] 45 U/L 46-116 [facility] ALT [Catalytic activity/Vol] 23 U/L 14-59 [facility] AST [Catalytic activity/Vol] 21 U/L 15-37 [facility] Bilirubin [Mass/Vol] 0.4 mg/dL 0.2-1.0 [facility] Calcium [Mass/Vol] 9.0 mg/dL 8.5-10.1 [facility] Chloride [Moles/Vol] 106 mmol/L 98-107 [facility] Cholesterol [Mass/Vol] 246 mg/dL <=200 [facility] Cholesterol in HDL [Mass/Vol] 74 mg/dL 40-60 [facility] Comment on above: > or =60 mg/dl - LOW CARDIOVASCULAR RISK<40 mg/dl - HIGH CARDIOVASCULAR RISK CO2 [Moles/Vol] 25.5 mmol/L 21.0-32.0 [facility] Creatinine [Mass/Vol] 0.96 mg/dL 0.55-1.02 [facility] GFR/1.73 sq M.predicted MDRD (S/P/Bld) [Vol rate/Area] mL/min/{1.73_m2} >=60 [facility] Glucose [Mass/Vol] 86 mg/dL 74-106 [facility] Potassium [Moles/Vol] 3.8 mmol/L 3.5-5.1 [facility] Protein [Mass/Vol] 7.1 g/dL 6.4-8.2 [facility] Sodium [Moles/Vol] 142 mmol/L 136-145 [facility] Triglyceride [Mass/Vol] 101 mg/dL <=150 [facility] TSH Qn 1.531 m[IU]/L 0.358-3.740 [facility] Urea nitrogen [Mass/Vol] 20.0 mg/dL 7.0-18.0 [facility] Urea nitrogen/Creatinine [Mass ratio] 20.8 mg/mg [facility] Laboratory - Hematology and Cell countson 08-30-2023 ESR (Bld) [Velocity] 16 mm/h <=30 [facility] Immature granulocytes/100 WBC (Bld) 0.3 % 0.0-0.5 [facility] Leukocytes [#/volume] correc fito for nucleated erythrocytes in Blood by Automated counon 08-30-2023 WBC corrected for nucl RBC Auto (Bld) [#/Vol] 3.8 10 3/uL 4.0-11.0 [facility] Lymphocytes Auto (Bld) [#/Vo l]on 08-30-2023 Lymphocytes (Bld) [#/Vol] 1.7 10 3/uL 1.2-3.8 [facility] Lymphocytes/100 WBC Auto (Bl d)on 08-30-2023 Lymphocytes/100 WBC (Bld) 44.8 % 20.5-60.0 [facility] MCH Auto (RBC) [Entitic mass ]on 08-30-2023 MCH (RBC) [Entitic mass] 31.1 pg 26.7-34.0 [facility] MCHC Auto (RBC) [Mass/Vol]on 08-30-2023 MCHC (RBC) [Mass/Vol] 31.6 g/dL 29.9-35.2 [facility] MCV Auto (RBC) [Entitic vol] on 08-30-2023 MCV (RBC) [Entitic vol] 98.3 fL 81.0-99.0 [facility] Monocytes Auto (Bld) [#/Vol] on 08-30-2023 Monocytes (Bld) [#/Vol] 0.5 10 3/uL 0.3-0.8 [facility] Monocytes/100 WBC Auto (Bld) on 08-30-2023 Monocytes/100 WBC (Bld) 14.1 % 1.7-12.0 [facility] Neutrophils Auto (Bld) [#/Vo l]on 08-30-2023 Neutrophils (Bld) [#/Vol] 1.4 10 3/uL 1.4-6.5 [facility] Neutrophils/100 WBC Auto (Bl d)on 08-30-2023 Neutrophils/100 WBC (Bld) 35.8 % 43.0-75.0 [facility] No Panel Informationon 08-30 Eosinophils # (Auto) 0.2 10 3/uL 0.0-0.7 [facility] Immature Granulocyte # (Auto) 0.01 10 3/uL 0.00-0.03 [facility] Platelet mean volume Auto (B ld) [Entitic vol]on 08-30-2023 Platelet mean volume (Bld) [Entitic vol] 9.1 fL 9.5-13.5 [facility] Platelets Auto (Bld) [#/Vol] on 08-30-2023 Platelets (Bld) [#/Vol] 181 10 3/uL 150-450 [facility] RBC Auto (Bld) [#/Vol]on RBC (Bld) [#/Vol] 4.02 10 6/uL 4.20-5.40 [facility] Serum or plasma albumin/glob ulin mass ratioon 08-30-2023 Albumin/Globulin [Mass ratio] 1.1 {ratio} [facility] Serum or plasma anion gap de terminationon 08-30-2023 Anion gap [Moles/Vol] 14.3 mmol/L [facility] Serum or plasma total choles terol/high density lipoprotein (HDL) cholesterol mass albina 08-30-2023 Cholesterol.total/Cho lesterol in HDL [Mass ratio] 3.3 {ratio} [facility] Comment on above: 3.3 - 4.4 LOW [...] No obvious fractures at the coracoid process. [facility] Possible Web XR Shoulder - right 2 Viewso n 08-18-2023 Radiology Study observation (narrative) [facility] IntraOperative Documentson 1 IntraOperative Documents [id number]# 1.00CD:127 Normal [facility] Auto Diffon 04-07-2023 Basophils/100 WBC (Bld) 0.2 % Normal 0.0-2.0 [facility] Comment on above: Order Comment: Order Added by Discern Expert. Performed By: #### 2 383857, 1661887, 1156788, 5321037, 46466559, 2932763 #### [facility] Laboratory [address] [place] [address] 7[address]28 Basophils/Leukocytes Auto (Bld) [Pure # fraction] 0.0 E9/L Normal 0.0-0.2 [facility] Comment on above: Order Comment: Order Added by Discern Expert. Performed By: #### 2 438644, 0293606, 2399367, 1099214, 73233060, 4530217 #### [facility] [address] [place] [address] 78148 Eosinophils/100 WBC (Bld) 0.0 % Normal 0.0-8.0 [facility] Comment on above: Order Comment: Order Added by Discern Expert. Performed By: #### 2 517727, 7671124, 9897515, 4731710, 72981823, 8418515 #### [facility] [address] [place] [address]172 Eosinophils/Leukocyte s Auto (Bld) [Pure # fraction] 0.0 E9/L Normal 0.0-0.5 [facility] Comment on above: Order Comment: Order Added by Discern Expert. Performed By: #### 2 203188, 8409473, 6814071, 0251936, 21552633, 2665639 #### [facility] [address] [place] [address] 08243 Lymphocytes/100 WBC (Bld) 7.9 % Low 14.0-50.0 [facility] Comment on above: Order Comment: Order Added by Discern Expert. Performed By: #### 2 837230, 4645427, 6604698, 7202454, 63050058, 3481635 #### [facility] [address] [place] [address] 70682 Lymphocytes/Leukocyte s Auto (Bld) [Pure # fraction] 0.8 E9/L Low 1.0-4.0 [facility] Comment on above: Order Comment: Order Added by Discern Expert. Performed By: #### 2 399835, 0171944, 2154124, 4379172, 68207040, 3457887 #### [facility] [address] [place] [address] Monocytes/100 WBC (Bld) 14.0 % Normal 4.0-14.0 [facility] Comment on above: Order Comment: Order Added by Discern Expert. Performed By: #### 2 644218, 7427941, 6058389, 8607648, 88161830, 6619868 #### [facility] [address] [place] [address] Monocytes/Leukocytes Auto (Bld) [Pure # fraction] 1.3 E9/L High 0.2-1.0 [facility] Comment on above: Order Comment: Order Added by Discern Expert. Performed By: #### 2 674518, 4417480, 8278151, 5953531, 92269740, 8741670 #### [facility] [address] [place] [address] Neutrophils/100 WBC (Bld) 77.9 % High 36.0-75.0 [facility] Comment on above: Order Comment: Order Added by Discern Expert. Performed By: #### 2 065295, 3530002, 8359252, 9633688, 93033818, 0464030 #### [facility] [address] [place] [address] Neutrophils/Leukocyte s Auto (Bld) [Pure # fraction] 7.5 E9/L Normal 2.0-7.5 [facility] Comment on above: Order Comment: Order Added by Discern Expert. Performed By: #### 2 026254, 3899373, 4466533, 8012385, 92624276, 1747647 #### [facility] [address] [place] [address] BUNon 04-07-2023 Urea nitrogen [Mass/Vol] 20 mg/dL Normal 5-21 [facility] Comment on above: Performed By: #### 2 505081, 1792022, 8330762, 8271443, 83095707, 8338318 #### [facility] [address] [address]99[address] CBC w/ Auto Diffon 3 Erythrocyte distribution width (RBC) [Ratio] 14.6 % High 10.9-14.2 [facility] Comment on above: Performed By: #### 2 036949, 6963166, 4790051, 9514065, 79146511, 4524366 #### [facility] [address] [place] [address] Hematocrit (Bld) [Volume fraction] 29.7 % Low 34.0-46.0 [facility] Comment on above: Performed By: #### 2 220180, 3338670, 9120880, 6492830, 10598665, 9375399 #### [facility] [address] [address] Hemoglobin (Bld) [Mass/Vol] 10.0 g/dL Low 12.0-16.0 [facility] Comment on above: Performed By: #### 2 071309, 3260067, 6062901, 9693204, 37506688, 8529208 #### [facility] [address] [place] [address] 80062 MCH (RBC) [Entitic mass] 32.5 pg Normal 27.0-34.0 [facility] Comment on above: Performed By: #### 2 189638, 4443428, 1720000, 8372380, 30018944, 7676150 #### [facility] [address] [place] [address] MCHC (RBC) [Mass/Vol] 33.6 g/dL Normal 31.4-36.0 [facility] Comment on above: Performed By: #### 2 744865, 2694770, 1332501, 8765728, 68092255, 7231270 #### [facility] [address] [place] [address] MCV (RBC) [Entitic vol] 96.7 fL Normal 80.0-100.0 [facility] Comment on above: Performed By: #### 2 528168, 2403808, 6623677, 0907047, 15306058, 8504809 #### [facility] [address] [place] [address] Platelet mean volume (Bld) [Entitic vol] 7.1 fL Normal 6.4-10.8 [facility] Comment on above: Performed By: #### 2 384719, 9386663, 7131535, 3427736, 18448932, 5185919 #### [facility] [address] [address] Platelets (Bld) [#/Vol] 215.0 E9/L Normal 150.0-500.0 [facility] Comment on above: Performed By: #### 2 956750, 0236019, 5116264, 6348820, 05474317, 9070128 #### [facility] [address] [place], [place] [address] RBC (Bld) [#/Vol] 3.1 E12/L Low 4.3-5.9 [facility] Comment on above: Performed By: #### 2 279945, 5279054, 7906098, 6929954, 40826993, 7102835 #### [facility] [address] [place], [place] [address] WBC corrected for nucl RBC Auto (Bld) [#/Vol] 9.6 E9/L Normal 4.0-11.0 [facility] Comment on above: Performed By: #### 2 791608, 2541848, 6805843, 1209199, 33346777, 2806913 #### [facility] [address] [place] [address] CHEMISTRYOrdered By: SYSTEM SYSTEM on 04-07-2023 Anion gap [Moles/Vol] 6 mmol/L Normal 6 - 16 mEq/L [facility] Remisol Chloride [Moles/Vol] 118 mmol/L High 101 - 1 11 mmol/L [facility] Remisol CO2 [Moles/Vol] 23 mmol/L Normal 21 - 31 mmol/L [facility] Remisol Creatinine [Mass/Vol] 0.9 mg/dL Normal 0.5 - 1.3 mg/dL [facility] Remisol GFR/1.73 sq M.predicted among non-blacks MDRD (S/P/Bld) [Vol rate/Area] 72 mL/min/1.73 m2 Normal >=59mL/min/1 .73 m2 [facility] Chem S Comment on above: Interpretive Data: C hronic kidney disease could be indicated at eGFR's of less than 60 mL/min/1.73m2. Kidney failure is indicated at less than 15 mL/min/1.73m2. Potassium [Moles/Vol] 4.0 mmol/L Normal 3.5 - 5.3 mmol/L [facility] Remisol Sodium [Moles/Vol] 143 mmol/L Normal 135 - 145 mmol/L [facility] Remisol Urea nitrogen [Mass/Vol] 20 mg/dL Normal 5 - 21 mg/dL [facility] Remisol Consent for Anesthesiaon Consent for Anesthesia [id number]#1 .00CD:127 Normal [facility] Creatinineon 04-07-2023 Creatinine [Mass/Vol] 0.9 mg/dL Normal 0.5-1.3 [facility] Comment on above: Performed By: #### 2 460276, 2092306, 1575056, 7337562, 54189880, 8819064 ####[facility] [address] [place] [address] Discharge Instructionson Discharge Instructions [id number]# 1.00CD:127 Normal [facility] Discharge Note-Nursingon Discharge Note-Nursing RADHA ZAIDI [...] Pending Diagnostic Test Results None Pharmacy Information [facility] New Follow Up Appointments after Discharge Follow Up with Jordan Yuan When: Where: [address] [place] [address]- Business (1) Follow Up with JOHN ASHBY When: In 0 days Where: [address] [place] [address]- Business (1) Medications What How Much When Instructions Next Dose Changed acetaminophen-oxycodo ne (Percocet 5 mg-325 mg oral tablet) See instructions 1-2 tab(s) Oral q4hr Pickup at [facility]/pharmacy #4477 Next dose due after 10am Unchanged buPROPion (Wellbutrin XL 300 mg/ 24 hours Tab-ER) 1 Tablets By Mouth 2 times a day 04/07/23 @ 9pm Unchanged celecoxib (CeleBREX 100 mg Cap) 1 Capsules By Mouth 2 times a day as needed for for pain Pickup at [facility]/pharmacy #6177 04/07/23 @ 9pm Unchanged cephalexin (Keflex 500 mg Cap) 1 Capsules By Mouth Every 8 hours Duration: 7 Days Pickup at [facility]/pharmacy #6177 04/07/23 @ 2pm and bedtime Unchanged docusate (Colace 100 mg Cap) 1 Capsules By Mouth 2 times a day as needed for for constipation Pickup at [facility]/pharmacy #6177 04/07/23 @ 9pm Unchanged leflunomide [...] Every day 04/08/23 @ 9am Pharmacy Information [facility]/pharmacy #6177: [address], [place] [id number] [phone] Test Results CBC BMP WBC: 9.6 E9/L [...] Lateralized/ 24, Shoulder Implant 04/06/2023 Univers revers Young humeral Stem Size 9, Shoulder Implant 04/06/2023 UniversRevers SutureCap, 36 neutral, shoulder Implant 04/06/2023 universrevers Humeral Insert, small, 36, +6, Shoulder (more content not included)... Normal [facility] HEMATOLOGYOrdered By: SYSTEM SYSTEM on 04-07-2023 [...] 9.6 E9/L Normal 4.0 - 11.0 E9/L [facility] [employer]ando[employer]SS Inpatient Clinical Summaryon 04-07-2023 Inpatient Clinical Summary [address] [address] Clinical Summary Person Information: Name: RADHA ZAIDI Age: 62 Years : 1960 Sex: Female PCP: JOHN ASHBY DO Marital Status: Phone: [phone] Race: White Ethnicity: Non- or Language: Portuguese Visit Id: Visit Reason: OA RIGHT SHOULDER Speciality: Acuity: Enc Type: Observation Med Service: Medical Arrival: 04/06/2023 06:09:55 Discharge: Dispo Type: Address: [address] [place] [address] [address] [place] [id number] Provider Notes: Patient: RADHA ZAIDI Age: 62 [...] Follow up: With: Address: When: [place] [address] Business (1) 04/19/2023 2:15 PM With: Address: When: JOHN ASHBY [address] [place], [place] [phone] Business (1) Patient Education Information: Levy Yuan. - Shoulder Replacement (Custom) [facility] Inpatient Patient Summaryon 04-07-2023 Inpatient Patient Summary [address] [address] Patient Discharge Instructions PERSON INFORMATION Name: RADHA ZAIDI Date of : 1960 Current Date: 04/07/2023 08:46:37 PHYSICIANS Admitting Physician: Jordan Yuan DO Primary Care Physician: JOHN ASHBY DO PCP Comment: Discharge Diagnosis: Complete rotator cuff tear or rupture of right shoulder, not specified as traumatic Condition at Discharge: DYAN RADHA Levy has been given the following list of [...] None Follow up: With: Address: When: [place] [address] Business (1) 04/19/2023 2:15 PM With: Address: When: JOHN SYMONE [address] [facility], [place] [phone] Business (1) In the event that this [...] That Have Changed [facility], [address], [place] [phone], [phone] START: acetaminophen-oxycodo ne (Percocet 5 mg-325 mg oral tablet) 1-2 tab(s) Oral q4hr. Refills: 0. Last Dose: ____Next Dose: ____ STOP: acetaminophen-oxycodo ne (Percocet 5 mg-325 mg oral tablet) 1 Tablets By Mouth 3 times a day. Medications to Continue with No Changes [facility], [address], [place] [phone], [phone] celecoxib (CeleBREX 100 mg Cap) 1 Capsules [...] ELSIE Lu (419) (more content not included)... [facility] IntraOperative Documentson 0 04-07-2023 IntraOperative Documents [id number]#1 .00CD:127 [facility] IntraOperative Documents [id number]#1 .00CD:127 Normal [facility] Lyteson 04-07-2023 Anion gap [Moles/Vol] 6 mmol/L Normal 6-16 [facility] Comment on above: Performed By: #### 2 706155, 2595789, 1860124, 2203993, 40867037, 8464013 ####[facility] [address] [place] [address] Chloride [Moles/Vol] 118 mmol/L High 101-111 [facility] Comment on above: Performed By: #### 2 071636, 2480676, 6321232, 9144678, 66322342, 3833568 ####[facility] [address] [address] CO2 [Moles/Vol] 23 mmol/L Normal 21-31 [facility] Comment on above: Performed By: #### 2 936914, 6097921, 2357422, 5585132, 00891437, 0075700 ####[facility] [address] [place] [address] Potassium [Moles/Vol] 4.0 mmol/L Normal 3.5-5.3 [facility] Comment on above: Performed By: #### 2 058984, 6576744, 8964665, 3085414, 74880076, 3887166 ####[facility] [address] [place] [address] Sodium [Moles/Vol] 143 mmol/L Normal 135-145 [facility] Comment on above: Performed By: #### 2 204784, 0473192, 9510669, 8222819, 89383767, 6361566 ####[facility] [address] [place] [address] Main OR Intraoperative Recor don 04-07-2023 Main OR Intraoperative Record IntraOp Document Type FT Summary Primary Physician: Jordan Yuan DO Finalized Date/Time: 04/07/23 14:30:58 Pt. Name: RADHA ZAIDI Gerardo/Sex: 1960 Female Med Rec #: [id number] Physician: Jordan Yuan DO Financial #: [id number] Pt. Type: A Room/Bed: [facility]/01 Admit/Disch: 04/06/23 06:09:55 - 04/07/23 09:30:00 Institution: Case Times FT Entry 1 Patient Times In Room 04/06/23 09:32:00 Out Room 04/06/23 11:36:00 Procedure Times Start 04/06/23 10:14:00 Stop 04/06/23 11:30:00 Anesthesia Times Start 04/06/23 09:32:00 Stop 04/06/23 11:36:00 Block Timeout w04/06/23 08:24:00 Anesthesia Last Modified By: Dennis Goldman RN 04/06/23 11:35:46 General Comments: Right shoulder block performed by under ultrasound guidance. Leisa, RN to assist with the block. Block timeout at 0824. Patient's heartrate-78, SPo2- 100% on room air. patient tolerated block well. Block start at 0833. Block end at 0836. Patient transported via cart back to ASU bay 5 and placed on SP02 monitor by Leisa, ESTRELLITA. -ESTRELLITA Tomlin 04/07/23 Chart opened to review and send charges LRoth CSFA Case Attendance FT Entry 1 Entry 2 Entry 3 Case Attendee Adiel Steinberg CRNA, DO, Jason A Krupp RN, Dennis Curry Role Performed GRANT SPECIALIST Surgeon - Primary Self Contained Behavior Unit Teacher - Primary Time In 04/06/23 09:32:00 04/06/23 10:05:00 04/06/23 09:32:00 Time Out 04/06/23 11:36:00 04/06/23 11:16:00 04/06/23 11:36:00 Procedure SHOULDER TOTAL SHOULDER TOTAL SHOULDER TOTAL ARTHROPLASTY(Right) ARTHROPLASTY(Right) ARTHROPLASTY(Right) Comments , anesthesia media supervisor Last Modified By: Sharmaine Muñoz CST RN, Denins Downs RN 04/07/23 14:28:51 04/06/23 11:35:47 04/06/23 11:35:47 Entry 4 Entry 5 Entry 6 Case Attendee Valerie CNC GRINDER, Jena Taylor CST, John Role Performed Scrub - Primary Scrub - Primary CNC GRINDER/SA Time In 04/06/23 09:32:00 04/06/23 09:32:00 04/06/23 [...] retractor munoz munoz Last Modified By: Susi RN, Dennis Goldman RN, Dennis Curry 04/06/23 11:35:47 04/06/23 11:35:47 General Comments: Jese Macedo rep., present in the OR for surgical [...] Yuan DO, Krupp RN, Dennis Curry, Valerie CNC GRINDER, Johnathan Hernandez Sydney A, Wilhelm CST, Alfredo [...] traffic control (more content not included)... Normal [facility] Main OR PACU I Recordon 03-12 Main OR PACU I Record PACU Phase I Docum ent Type FT Summary Primary Physician: Jordan uYan DO Finalized Date/Time: 04/07/23 08:05:19 Pt. Name: RADHA ZAIDI/Sex: 1960 Female Med Rec #: [id number] Physician: Jordan Yuan DO Financial #: [id number] Pt. Type: O Room/Bed: N305/ Admit/Disch: 04/06/23 06:09:55 - Institution: Case Times [...] 08:04 Cate Gonsales RN 04/07/23 08:05 Normal [facility] Patient Education - Texton 0 04-07-2023 Patient Education - Text [place], [place] [facility] DISCHARGE INSTRUCTIONS: SHOULDER REPLACEMENT [...] or the development of persistent vomiting. Jordan Yuan, [facility] [address] [place] [address] Reviewed: Normal [facility] Preoperative Documentson Preoperative Documents [id number]#1 .00CD:127 Normal [facility] Progress Note-Physicianon Progress Note-Physician Patient: RADHA [...] Pressure 63 mmHg SpO2 94 % Normal [facility] Comment on above: Result Comment: Elec tronically Signed By: Jordan Yuan DO\.br\Date and Time Signed: 04/07/23 07:40 EDT eGFRon 04-07-2023 GFR/1.73 sq M.predicted among non-blacks MDRD (S/P/Bld) [Vol rate/Area] 72 mL/min/1.73 m2 Normal >=59 [facility] Comment on above: Order Comment: Order added by Discern Expert. Result Comment: Decorating Machine Operator dina kidney disease could be indicated at eGFR's of less than 60 mL/min/1.73m2. Kidney failure is indicated at less than 15 mL/min/1.73m2. Performed By: #### 2 695634, 9370531, 0281263, 8140436, 21868827, 2509861 ####[facility] [address] [place] [address] ABO/Rhon 04-06-2023 ABO/Rh Positive Invalid Interpretation Code [facility] Comment on above: Performed By: #### 1 1692805, 46112669, 30262907, 4666340 ####[facility] [address] [place] [address] ABO/Rh History Checkon 04-06 ABO/Rh History Check Verified Hx Blood Type Normal [facility] Comment on above: Performed By: #### 1 2220741, 46755106, 87849796, 0087291 ####[facility] [address] [place] [address] ABSCon 04-06-2023 ABSC Gel Interp Negative Normal [facility] Comment on above: Performed By: #### 1 2545872, 27305021, 13808274, 0832048 ####[facility] [address] [place] [address] BLOOD BANKOrdered By: Andra Nunez on 04-06-2023 ABO/Rh Interp Positive Invalid Interpretation Code [facility] BB Subsection ABSC Gel Interp Negative (04/06/23 7:23 AM) Normal [facility] BB Subsection Blood Bank ID#on 04-06-2023 BBID# [id number] Invalid Interpretation Code [facility] Comment on above: Performed By: #### 1 9577540, 53254529, 28451546, 6284281 ####[address] [place] [address] Consent for Treatmenton 03-12 Consent for Treatment [id number]#1 .00CD:127 Normal [facility] H&P Updateon 04-06-2023 H&P Update [id number]#1 .00CD:127 [facility] Insurance Correspondence Off iceon 04-06-2023 Insurance Correspondence Office [id number]# 1.00CD:127 Normal [facility] Main OR Preoperative Recordo n 04-06-2023 Main OR Preoperative Record PreOp Document Type FT Summary Primary Physician: Jordan Yuan DO Finalized Date/Time: 04/06/23 09:32:24 Pt. Name: RADHA ZAIDI/Sex: 1960 Female Med Rec #: [id number] Physician: Jordan Yuan DO Financial #: [id number] Pt. Type: A Room/Bed: Admit/Disch: 04/06/23 06:09:55 [...] By: Dennis Goldman RN 04/06/23 09:32 Normal [facility] Monitor Recordon 04-06-2023 Monitor Record [id number]# 1.00CD:127 Normal [facility] Monitor Record [id number]# 1.00CD:127 Normal [facility] Monitor Record [id number]# 1.00CD:127 Normal [facility] Operative Reporton Operative Report Patient: RADHA ZAIDI Age: 62 years Sex: Female : 1960 Associated Diagnoses: None Author: Jordan Yuan DO DATE OF SURGERY: 04/06/2023 SURGEON: Jordan Yuan D.O. FINISHER SPECIAL STOCKS: Anival Flores CFA PREOPERATIVE DIAGNOSIS: Massive rotator [...] 3. size +6 humeral insert 4. Revers Young size 9 stem with 36 (neutral) Suturecup OPERATIVE INDICATIONS: Radha is a 62-year-old [id number] female who has had persistent right shoulder [...] intraoperative instrumentation were performed with the [employer] [facility] software. PROCEDURE: The correct operative site was [...] The depth-stop (more content not included)... Normal [facility] Comment on above: Result Comment: Elec tronically Signed By: Jordan Yuan DO\.br\Date and Time Signed: 04/06/23 15:39 EDT Operative Report Patient: RADHA ZAIDI Age: 62 years Sex: Female : 1960 Associated Diagnoses: None Author: Yanick aRi DO Procedure Nerve Block Block Type: Interscalene [...] Using maximal sterile barrier technique per current [facility] guidelines including hand hygeine, Guidance (Ultrasound used [...] patient tolerated the procedure as expected. Normal [facility] Comment on above: Result Comment: Elec tronically Signed By: Yanick Rai DO\.br\Date and Time Signed: 04/06/23 08:44 EDT Progress Note-Physicianon Progress Note-Physician Patient: RADHA ZAIDI Age: 62 years Sex: Female : 1960 Associated Diagnoses: None Author: Yanick Rai DO Postoperative Information Postoperative disposition: Postoperative disposition: To PACU. Optimetrix number: Optimetrix number [id number]. Anesthetic utilized: General. Regional: Interscalene Block. Health [...] pain, # 60 cap(s), Refills(s) 0, Pharmacy: [facility]/pharmacy #6177, 160, cm, 03/25/23 6:16:00 EDT, Height/Length Dos (more content not included)... 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 Family History: Primary malignant neoplasm of prostate Father Acute myocardial infarction Mother Procedure history: Cervical laminectomy (5474010969). Amputation of finger (880067794). Removal of lung, Partial (23687). Open reduction and internal fixation of fracture Leg (758773291). Foot surgery (4684073024). Lumbar discectomy (432720793). Social History Social & Psychosocial Habits Alcohol [...] to auscultation. (more content not included)... Normal [facility] Comment on above: Result Comment: Elec tronically Signed By: Yanick Rai DObr\Date and Time Signed: 04/06/23 08:05 EDT XR [...] mGy = na DAP = na Normal [facility] Consent for Procedure/Surger yon 04-05-2023 Consent for Procedure/Surgery [id number]#1 .00CD:127 Normal [facility] CT Upper Extremity w/o Contr ast [...] DO Transcribed by: DANISHA Technologist: CONSTANTINO Normal [facility] ABO/Rh Retypeon 03-24-2023 ABO/Rh Retype Interp Positive Invalid Interpretation Code [facility] Comment on above: Performed By: #### 1 [id number] ####[facility] [address] [place] [id number] BLOOD BANKOrdered By: Andra Longoria on 03-24-2023 ABO/Rh Retype Interp Positive Invalid Interpretation Code [facility] BB Subsection BUNon 03-24-2023 Urea nitrogen [Mass/Vol] 28 mg/dL High 5-21 [facility] Comment on above: Performed By: #### 1 [id number], 0034888, 3647722, 2210548, 7426711, 7124343 ####[facility] [address] [place] [address] CBC w/Indiceson 03-24-2023 Erythrocyte distribution width (RBC) [Ratio] 14.5 % High 10.9-14.2 [facility] Comment on above: Performed By: #### 1 7238653, 1367965, 2741693, 1665710, 1395715, 6942396 ####[facility] [address] [place] [address] Hematocrit (Bld) [Volume fraction] 35.9 % Normal 34.0-46.0 [facility] Comment on above: Performed By: #### 1 6597881, 4443722, 3565908, 3521895, 1513588, 4322766 ####[facility] [address] [place] [address] Hemoglobin (Bld) [Mass/Vol] 11.9 g/dL Low 12.0-16.0 [facility] Comment on above: Performed By: #### 1 4690125, 6794068, 9751667, 5767257, 5978824, 8854103 ####[place] [address] [place] [address]57 MCH (RBC) [Entitic mass] 32.3 pg Normal 27.0-34.0 [facility] Comment on above: Performed By: #### 1 9612949, 4512221, 8625622, 3771214, 7452091, 0078554 ####[address] [address] MCHC (RBC) [Mass/Vol] 33.1 g/dL Normal 31.4-36.0 [facility] Comment on above: Performed By: #### 1 2056998, 4316472, 5079883, 6170295, 4504158, 0957332 ####[address] [address] MCV (RBC) [Entitic vol] 97.4 fL Normal 80.0-100.0 [facility] Comment on above: Performed By: #### 1 1193749, 4407272, 9351650, 8031544, 7895274, 3775944 ####[address] [address] Platelet mean volume (Bld) [Entitic vol] 7.4 fL Normal 6.4-10.8 [facility] Comment on above: Performed By: #### 1 2446632, 4934600, 1026010, 8034298, 1583972, 2915794 ####[address] [address] Platelets (Bld) [#/Vol] 207.0 E9/L Normal 150.0-500.0 [facility] Comment on above: Performed By: #### 1 3725352, 1497350, 2627545, 6626771, 1137276, 8866327 ####[facility] [address] [place] [address] RBC (Bld) [#/Vol] 3.7 E12/L Low 4.3-5.9 [facility] Comment on above: Performed By: #### 1 3226276, 2844197, 0195848, 8136573, 2093489, 9734552 ####[facility] [address] [place] [address] WBC corrected for nucl RBC Auto (Bld) [#/Vol] 3.5 E9/L Low 4.0-11.0 [facility] Comment on above: Performed By: #### 1 4689405, 6438524, 1275044, 6524754, 7940012, 3830573 ####[facility] [address] [place] [address] CHEMISTRYOrdered By: SYSTEM SYSTEM on 03-24-2023 Anion gap [Moles/Vol] 12 mmol/L Normal 6 - 16 mEq/L [facility] Remisol Chloride [Moles/Vol] 111 mmol/L Normal 101 - 1 11 mmol/L [facility] Remisol CO2 [Moles/Vol] 20 mmol/L Low 21 - 31 mmol/L [facility] Remisol Creatinine [Mass/Vol] 1.2 mg/dL Normal 0.5 - 1.3 mg/dL [facility] Remisol GFR/1.73 sq M.predicted among non-blacks MDRD (S/P/Bld) [Vol rate/Area] 51 mL/min/1.73 m2 Low >=59mL/min/1 .73 m2 [facility] Chem S Glucose [Mass/Vol] 84 mg/dL Normal 55 - 199 mg/dL [facility] Potassium [Moles/Vol] 4.2 mmol/L Normal 3.5 - 5.3 mmol/L [facility] Sodium [Moles/Vol] 139 mmol/L Normal 135 - 145 mmol/L [facility] Urea nitrogen [Mass/Vol] 28 mg/dL High 5 - 21 mg/dL [facility] Remisol Consent for Treatmenton 03-11 Consent for Treatment [id number]:127 Normal [facility] Creatinineon 03-24-2023 Creatinine [Mass/Vol] 1.2 mg/dL Normal 0.5-1.3 [facility] Comment on above: Performed By: #### 1 [id number], 5465778, 4446572, 3739926, 1253241, 2094203 ####[facility] [address] [place] [address] Glucoseon 03-24-2023 Glucose [Mass/Vol] 84 mg/dL Normal 55-199 [facility] Comment on above: Performed By: #### 1 8554225, 9509174, 6113487, 2286923, 7112911, 5812137 ####[facility] Tab[address]tigok[address] [place] [address] HEMATOLOGYOrdered By: Andra Longoria on 03-24-2023 Erythrocyte [...] 3.5 E9/L Low 4.0 - 11.0 E9/L [facility] HemeAutoSS Lyteson 03-24-2023 Anion gap [Moles/Vol] 12 mmol/L Normal 6-16 [facility] Comment on above: Performed By: #### 1 1222963, 1528806, 4492382, 1913899, 3634644, 7614084 ####[facility] [address] [place] [address] Chloride [Moles/Vol] 111 mmol/L Normal 101-111 [facility] Comment on above: Performed By: #### 1 0654980, 0569889, 3102046, 2275820, 1141037, 8049331 ####[facility] [address] [place] [address] CO2 [Moles/Vol] 20 mmol/L Low 21-31 [facility] Comment on above: Performed By: #### 1 7972484, 7180724, 3920292, 4954772, 0966069, 6400126 ####[facility] [address] [place] [address] Potassium [Moles/Vol] 4.2 mmol/L Normal 3.5-5.3 [facility] Comment on above: Performed By: #### 1 2311414, 9843774, 4880373, 2265293, 0828738, 8704572 ####[facility] [address] [place] [address] Sodium [Moles/Vol] 139 mmol/L Normal 135-145 [facility] Comment on above: Performed By: #### 1 7329431, 0986857, 2724062, 1183618, 5684244, 5462248 ####[facility] [address] [place] [address] UA With Cult Reflexon 2022 Bilirubin Ql (U) Negative Normal Negative [facility] Comment on above: Performed By: #### 1 6054176 #### [facility] [address] [place] [address] Clarity (U) CLEAR Normal Clear [facility] Comment on above: Performed By: #### 1 3978813 #### [facility] [address] [place] [address] Color (U) YELLOW Normal Yellow [facility] Comment on above: Performed By: #### 1 2950919 #### [facility] [address] [place] [address] Epithelial cells.squamous LM.HPF (Urine sed) [#/Area] 0-2 Normal 0-2 [facility] Comment on above: Performed By: #### 1 2874348 #### [facility] [address] [place] [address] Fine Granular Casts LM Ql (Urine sed) 0-3 Normal [facility] Comment on above: Performed By: #### 1 1275729 #### [facility] [address] [place] [address] Glucose Test strip (U) [Mass/Vol] Negative Normal Negative [facility] Comment on above: Performed By: #### 1 2410474 #### [facility] [address] [place] [address] Hemoglobin Ql (U) Negative Normal Negative [facility] Comment on above: Performed By: #### 1 7581787 #### [facility] [address] [place] [address] Ketones (U) [Mass/Vol] Negative Normal Negative [facility] Comment on above: Performed By: #### 1 5054228 #### [facility] [address] [place] [address] [place].plasma/Lithiu m.RBC (Bld) [Mass ratio] 0-3 Normal 0-3 [facility] Comment on above: Performed By: #### 1 0410983 #### [facility] [address] [place] [address] Mucus Ql (Urine sed) TRACE Normal [facility] Comment on above: Performed By: #### 1 0279412 #### [facility] [address] [place] [address] Nitrite Ql (U) Negative Normal Negative [facility] Comment on above: Performed By: #### 1 0625824 #### [facility] [address] [place] [address] pH (U) 6.0 [pH] Invalid Interpretation Code 5.0-9.0 [facility] Comment on above: Performed By: #### 1 1837888 #### [facility] [address] [place] [address] Protein (U) [Mass/Vol] Negative Normal Negative [facility] Comment on above: Performed By: #### 1 4695641 #### [facility] [address] [place] [address] Specific gravity (U) [Rel density] >=1.030 Invalid Interpretation Code 1.005-1.030 [facility] Comment on above: Performed By: #### 1 7858448 #### [facility] [address] [place] [address] Type of Urine collection method Clean Catch Normal [facility] Comment on above: Performed By: #### 1 2919830 #### [facility] [address] [place] [address] Urobilinogen Qn (U) 0.2 {Rajwinder'U}/dL Normal 0.0-1.0 [facility] Comment on above: Performed By: #### 1 5459899 #### [facility] [address] [place] [address] WBC Auto Ql (U) Negative Normal Negative [facility] Comment on above: Performed By: #### 1 7147945 #### [facility] [address] [place] [address] WBC LM.HPF (Urine sed) [#/Area] 0-5 Normal 0-5 [facility] Comment on above: Performed By: #### 1 4641897 #### [facility] [address] [place] [address] URINALYSISOrdered By: Indira calix on 03-24-2023 Bilirubin [...] PM) Normal Negative [facility] UA Auto SS [place].plasma/Lithiu m.RBC (Bld) [Mass ratio] 0-3 /HPF Normal [...] [facility] UA Auto SS Urobilinogen Qn (U) 0.9889000 {Rajwinder'U}/dL Normal 0.0 - 1.0 EU/dL [facility] UA Auto SS WBC Auto Ql (U) Negative (03/24/23 3:05 PM) Normal Negative [facility] UA Auto SS WBC LM.HPF (Urine sed) [#/Area] 0-5 /HPF Normal 0-5/HPF [facility] UA Auto SS XR Chest 2 Viewson [...] mGy = na DAP = na Normal [facility] eGFRon 03-24-2023 GFR/1.73 sq M.predicted among non-blacks MDRD (S/P/Bld) [Vol rate/Area] 51 mL/min/1.73 m2 Low >=59 [facility] Comment on above: Order Comment: Order added by Discern Expert. Result Comment: Decorating Machine Operator dina kidney disease could be indicated at eGFR's of less than 60 mL/min/1.73m2. Kidney failure is indicated at less than 15 mL/min/1.73m2. Performed By: #### 1 5613274, 0774808, 2791220, 9203979, 3340535, 9582920 ####[facility] [address] [place] [address] Physician Orderon 03-23-2023 Physician Order [id number]. [id number]:127 Normal [facility] XR SHOULDER RT 2V or >on [...] VANDANA YUAN Date: 2022-10-07 22:08 Normal [facility] CBC AUTO DIFFon 09-16-2022 BASO # 0.0 103/ul Normal 0.0-0.[address] [facility] Comment on above: Performed By: #### C BC ####[facility] [address] [place] [address]Dr. Andrade Alvarado Basophils/100 WBC (Bld) 0.5 % Normal 0.2-2.[address] [facility] Comment on above: Performed By: #### C BC ####[facility] [address] [place], [place] [address]DrMehreen Alvarado EO # 0.1 103/ul Normal 0.0-0.[address] [facility] Comment on above: Performed By: #### C BC ####[facility] [address] [place] [address]Dr. Andrade Alvarado Eosinophils/100 WBC (Bld) 2.3 % Normal 0.9-7.[address] [facility] Comment on above: Performed By: #### C BC ####[facility] [address] [place], [place] [address]DrMehreen Alvarado Erythrocyte distribution width (RBC) [Ratio] 13.7 % Normal 11.0-15.[address] [facility] Comment on above: Performed By: #### C BC ####[facility] [address] [place], [place] [address]DrMehreen Alvarado Hematocrit (Bld) [Volume fraction] 32.8 % Critically low 36.0-48.[address] [facility] Comment on above: Performed By: #### C BC ####[facility] [address] [place] [address]Dr. Andrade Alvarado Hemoglobin (Bld) [Mass/Vol] 10.9 g/dL Critically low 12.0-16.[address] [facility] Comment on above: Performed By: #### C BC ####[facility] [address] [place] [address]Dr. Andrade Alvarado IG # 0.02 10e3/ul Normal 0.00-0.[address] [facility] Comment on above: Performed By: #### C BC ####[facility] [address] [place], [place] [address]Dr. Kellengregory Christiano IG % 0.5 % Normal 0.0-0.[address] [facility] Comment on above: Performed By: #### C BC ####[facility] [address] [place], [place] [address]Dr. Andrade Alvarado LYMPH # 1.6 103/ul Normal 1.2-3.8 [facility] Comment on above: Performed By: #### C BC ####[facility] [address] [place], [place] [address]Dr. Andrade Alvarado Lymphocytes/100 WBC (Bld) 41.8 % Normal 20.5-60.0 [facility] Comment on above: Performed By: #### C BC ####[facility] [address] [place], [place] [address]Dr. Andrade Alvarado MANUAL DIFF REQ NO Normal [facility] Comment on above: Performed By: #### C BC ####[facility] Cxnx[address] [place], [place] [address]Dr. Andrade Alvarado MCH (RBC) [Entitic mass] 31.9 pg Normal 26.7-34.0 [facility] Comment on above: Performed By: #### C BC ####[facility] Y[address] [place], [place] [address]Dr. Andrade Alvarado MCHC (RBC) [Mass/Vol] 33.2 g/dL Normal 29.9-35.2 [facility] Comment on above: Performed By: #### C BC ####[facility] [address] [place] [address]Dr. Andrade Alvarado MCV (RBC) [Entitic vol] 95.9 fL Normal 81.0-99.0 [facility] Comment on above: Performed By: #### C BC ####[facility] [address] [place] [address]Dr. Andrade Alvarado MONO # 0.5 103/ul Normal 0.3-0.8 [facility] Comment on above: Performed By: #### C BC ####[facility] [address] [place] [address]Dr. Andrade Christiano Monocytes/100 WBC (Bld) 13.1 % Critically high 1.7-12.[address] [facility] Comment on above: Performed By: #### C BC ####[facility] [address] [place], [place] [address]Dr. Andrade Alvarado NEUT # 1.6 103/ul Normal 1.4-6.5 [facility] Comment on above: Performed By: #### C BC ####[facility] [address] [place] [id number]. Andrade Alvarado Neutrophils/100 WBC (Bld) 41.8 % Critically low 43.0-75.0 [facility] Comment on above: Performed By: #### C BC ####[facility] [address] [place], [place] [address]Dr. Andrade Christiano Platelet mean volume (Bld) [Entitic vol] 8.8 fL Critically low 9.5-13.5 [facility] Comment on above: Performed By: #### C BC ####[facility] [address] [place], [place] [address]Dr. Andrade Christiano PLT 219 103/ul Normal 150-450 [facility] Comment on above: Performed By: #### C BC ####[facility] [address] [place] [address]Dr. Andrade Christiano RBC 3.42 106/ul Critically low 4.20-5.40 [facility] Comment on above: Performed By: #### C BC ####[facility] [address] [place] [address]Dr. Andrade Alvarado WBC 3.9 103/ul Critically low 4.0-11.0 [facility] Comment on above: Performed By: #### C BC ####[facility] [address] [place] [address]Dr. Andrade Alvarado FERRITINon 09-16-2022 Ferritin [Mass/Vol] 292.0 ng/mL Critically high 8.0-252.[address] [facility] Comment on above: Performed By: #### F ERR, B12FOL, FETIBC #### [facility] Laboratory [address] [place] [address] [address] Andrade Alvarado IRON AND TIBCon 09-16-2022 % SATURATION 76.2 % Normal [facility] Comment on above: Performed By: #### F ERR, B12FOL, FETIBC #### [facility] Laboratory [address] [place] [address] [address] Andrade Alvarado Iron [Mass/Vol] 259.0 ug/dL Critically high 50.0-170.[address] [facility] Comment on above: Performed By: #### F ERR, B12FOL, FETIBC #### [facility] Laboratory [address] [place] [address] [address] Andrade Alvarado TIBC DIRECT 340.0 ug/dL Normal 250.0-450.0 [facility] Comment on above: Performed By: #### F ERR, B12FOL, FETIBC #### [facility] Laboratory [address] [place] [address] [address] Andrade Alvarado PROF 14(COMP METB)on 023 Albumin [Mass/Vol] 4.0 g/dL Normal 3.4-5.0 [facility] Comment on above: Performed By: #### C MP ####[facility] [address] [place] [address]Dr. Andrade Alvarado Albumin/Globulin [Mass ratio] 1.3 {ratio} Normal [facility] Comment on above: Performed By: #### C MP ####[facility] [address] [place] [id number]. Andrade Alvarado ALP [Catalytic activity/Vol] 47 U/L Normal 46-[address] [facility] Comment on above: Performed By: #### C MP ####[facility] [address] [place] [id number]. Andrade Alvarado ALT [Catalytic activity/Vol] 23 U/L Normal 14-[address] [facility] Comment on above: Performed By: #### C MP ####[facility] [address] [place] [address]Dr. Andrade Alvarado Anion gap [Moles/Vol] 12.1 mmol/L Normal e [facility] Comment on above: Performed By: #### C MP ####[facility] Rx[address]kl[address] [place] [address]Dr. Andrade Alvarado AST [Catalytic activity/Vol] 23 U/L Normal 15-[address] [facility] Comment on above: Performed By: #### C MP ####[facility] [address] [place], [place] [address]Dr. Andrade Alvarado Bilirubin [Mass/Vol] 0.4 mg/dL Normal 0.2-1.[address] [facility] Comment on above: Performed By: #### C MP ####[facility] [address] [place] [address]Dr. Andrade Alvarado Calcium [Mass/Vol] 9.3 mg/dL Normal 8.5-10.1 [facility] Comment on above: Performed By: #### C MP ####[facility] [address] [place] [phone]. Andrade Alvarado Chloride [Moles/Vol] 108 mmol/L Critically high 98-[address] [facility] Comment on above: Performed By: #### C MP ####[facility] [address] [place] [address]Dr. Andrade Alvarado CO2 [Moles/Vol] 26.9 mmol/L Normal 21.0-32.0 [facility] Comment on above: Performed By: #### C MP ####[facility] [address] [place] [address]Dr. Andrade Christiano Creatinine [Mass/Vol] 0.87 mg/dL Normal 0.55-1.02 [facility] Comment on above: Performed By: #### C MP ####[facility] [address] [place] [address]Dr. Andrade Christiano EGFR-AF TONGAN >60 Normal >=60 [facility] Comment on above: Performed By: #### C MP ####[facility] [address] [place] [address]Dr. Andrade Alvarado EGFR-NON AF TONGAN >60 Normal >=[address] [facility] Comment on above: Performed By: #### C MP ####[facility] [address] [place], [place] [address]Dr. Andrade Alvarado Globulin (S) [Mass/Vol] 3.0 g/dL Normal [facility] Comment on above: Performed By: #### C MP ####[facility] [address] [place], [place] [address]Dr. Andrade Alvarado Glucose [Mass/Vol] 102 mg/dL Normal 74-106 [facility] Comment on above: Performed By: #### C MP ####[facility] [address] [place], [place] [address]Dr. Andrade Alvarado Potassium [Moles/Vol] 4.0 mmol/L Normal 3.5-5.1 [facility] Comment on above: Performed By: #### C MP ####[facility] [address] [place], [place] [address]Dr. Andrade Alvarado Protein [Mass/Vol] 7.0 g/dL Normal 6.4-8.2 [facility] Comment on above: Performed By: #### C MP ####[facility] [address]uc[address] [place], [place] [address]Dr. Andrade Alvarado Sodium [Moles/Vol] 143 mmol/L Normal 136-145 [facility] Comment on above: Performed By: #### C MP ####[facility] [address] [place], [place] [address]Dr. Andrade Alvarado Urea nitrogen [Mass/Vol] 25.0 mg/dL Critically high 7.0-18.[address] [facility] Comment on above: Performed By: #### C MP ####[facility] [address] [place] [address]Dr. Andrade Alvarado Urea nitrogen/Creatinine [Mass ratio] 28.7 mg/mg Normal [facility] Comment on above: Performed By: #### C MP ####[facility] [address] [place] [address]Dr. Andrade Alvarado SED RATE WESTERGRENon 2022 SED RATE 11 mm/hr Normal <=30 [facility] Comment on above: Performed By: #### S EDR ####[facility] [address] [place] [address]DrMehreen Alvarado VIT B12 AND FOLATEon 023 Cobalamin (Vitamin B12) [Mass/Vol] 249.0 pg/mL Normal 193.0-986.[address] [facility] Comment on above: Performed By: #### F ERR, B12FOL, FETIBC #### [facility] Laboratory [address] [place] [address] [address] Andrade Alvarado FOLATE 14.00 ng/mL Normal 8.60-58.[address] [facility] Comment on above: Performed By: #### F ERR, B12FOL, FETIBC #### [facility] Laboratory [address] [place] [address] [address] Andrade Alvarado MAMM SCREEN 3D BRENNA CADon 2022 MG MAMM SCREEN 3D BRENNA CAD Patient: RADHA ZAIDI Exam Date: 2022 : 1960 Gender:F Ordering : DR JOHN ASHBY D.O. Admission #: [id number] Family : Order #: [id number] CLICK HERE TO VIEW EXAM RADIOLOGY REPORT [...] prostate cancer at age 72. LOCATION: [facility] BREAST COMPOSITION: Scattered areas fibroglandular density. FINDINGS: [...] M.D. on 06/09/2022 at 15:30 Normal [facility] CBC AUTO DIFFon 05-20-2022 BASO # 0.0 103/ul Normal 0.0-0.[address] [facility] Comment on above: Performed By: #### C BC ####[facility] Rmsoljnsiw[address] [place], [place] [address]DrMehreen Alvarado Basophils/100 WBC (Bld) 1.0 % Normal 0.2-2.[address] [facility] Comment on above: Performed By: #### C BC ####[facility] Exvynhoj[address] [place], [place] [address]DrMehreen Alvarado EO # 0.1 103/ul Normal 0.0-0.7 [facility] Comment on above: Performed By: #### C BC ####[facility] Bmysixvcnf[address] [place], [place] [address]DrMehreen Alvarado Eosinophils/100 WBC (Bld) 2.5 % Normal 0.9-7.[address] [facility] Comment on above: Performed By: #### C BC ####[facility] Kqzkdkdnwo23[address] [place], [place] [address]DrMehreen Alvarado Erythrocyte distribution width (RBC) [Ratio] 13.0 % Normal 11.0-15.0 [facility] Comment on above: Performed By: #### C BC ####[facility] Metsyjgclo264[address] [place], [place] [address]DrMehreen Alvarado Hematocrit (Bld) [Volume fraction] 34.9 % Critically low 36.0-48.0 [facility] Comment on above: Performed By: #### C BC ####[facility] [address] [place] [address]Dr. Andrade Alvarado Hemoglobin (Bld) [Mass/Vol] 11.6 g/dL Critically low 12.0-16.0 [facility] Comment on above: Performed By: #### C BC ####[facility] Szoyrmuawb[address] [place], [place] [address]Dr. Andrade Alvarado IG # 0.02 10e3/ul Normal 0.00-0.03 [facility] Comment on above: Performed By: #### C BC ####[facility] Jvafzbeock23[address] [place], [place] [address]Dr. Andrade Alvarado IG % 0.5 % Normal 0.0-0.[address] [facility] Comment on above: Performed By: #### C BC ####[facility] Rczhdprptf23[address] [place], [place] [address]Dr. Andrade Alvarado LYMPH # 1.9 103/ul Normal 1.2-3.8 [facility] Comment on above: Performed By: #### C BC ####[facility] Jwnizshotv836[address] [place], [place] [address]Dr. Kellengregory Alvarado Lymphocytes/100 WBC (Bld) 46.1 % Normal 20.5-60.0 [facility] Comment on above: Performed By: #### C BC ####[facility] Rhhlkkgfmf480[address] [place], [place] [address]Dr. Andrade Alvarado MANUAL DIFF REQ NO Normal [facility] Comment on above: Performed By: #### C BC ####[facility] Csxoambcgn5580[address] [place], [place] [address]Dr. Andrade Alvarado MCH (RBC) [Entitic mass] 32.3 pg Normal 26.7-34.0 [facility] Comment on above: Performed By: #### C BC ####[facility] Biefpxcoqe47[address] [place], [place] [address]Dr. Andrade Alvarado MCHC (RBC) [Mass/Vol] 33.2 g/dL Normal 29.9-35.2 [facility] Comment on above: Performed By: #### C BC ####[facility] Mdruuqmvkt[address] [place] [address]DrMehreen Andrade Alvarado MCV (RBC) [Entitic vol] 97.2 fL Normal 81.0-99.0 [facility] Comment on above: Performed By: #### C BC ####[facility] Cgipzmnmws367[address] [place], [place] [address]DrMehreen Alvarado MONO # 0.5 103/ul Normal 0.3-0.8 [facility] Comment on above: Performed By: #### C BC ####[facility] Eynhapabgk[address] [place], [place] [address]DrMehreen Kellengregory Alvarado Monocytes/100 WBC (Bld) 13.5 % Critically high 1.7-12.0 [facility] Comment on above: Performed By: #### C BC ####[facility] Gkysismlpr12[address] [place], [place] [address]DrMehreen Alvarado NEUT # 1.5 103/ul Normal 1.4-6.5 [facility] Comment on above: Performed By: #### C BC ####[facility] Rtzfoubjwl47[address] [place], [place] [address]DrMehreen Alvarado Neutrophils/100 WBC (Bld) 36.4 % Critically low 43.0-75.0 [facility] Comment on above: Performed By: #### C BC ####[facility] Bltatojszj23[address] [place], [place] [address]DrMehreen Alvarado Platelet mean volume (Bld) [Entitic vol] 8.9 fL Critically low 9.5-13.5 [facility] Comment on above: Performed By: #### C BC ####[facility] Eoucxocxsa[address] [place], [place] [address]DrMehreen Alvarado PLT 237 103/ul Normal 150-450 [facility] Comment on above: Performed By: #### C BC ####[facility] Kndizfdgye65[address] [place], [place] [address]DrMehreen Alvarado RBC 3.59 106/ul Critically low 4.20-5.40 [facility] Comment on above: Performed By: #### C BC ####[facility] [address] [place] [id number]. Andrade Alvarado WBC 4.0 103/ul Normal 4.0-11.[address] [facility] Comment on above: Performed By: #### C BC ####[facility] Z[address]jh[address] [place] [id number]. Andrade Alvarado CRPon 05-20-2022 CRP [Mass/Vol] mg/L Normal <=1.0 [facility] Comment on above: Performed By: #### C MP, CRP, TSH ####[facility] T[address] [place] [id number]. Andrade Alvarado PROF 14(COMP METB)on 022 Albumin [Mass/Vol] 4.2 g/dL Normal 3.4-5.0 [facility] Comment on above: Performed By: #### C MP, CRP, TSH #### [facility] Laboratory [address] [address] [address] Andrade Alvarado Albumin/Globulin [Mass ratio] 1.3 {ratio} Normal [facility] Comment on above: Performed By: #### C MP, CRP, TSH #### [facility] Laboratory [address] [address] [address] Andrade Alvarado ALP [Catalytic activity/Vol] 50 U/L Normal 46-[address] [facility] Comment on above: Performed By: #### C MP, CRP, TSH #### [facility] Laboratory [address] [address] [address] Andrade Alvarado ALT [Catalytic activity/Vol] 23 U/L Normal 14-[address] [facility] Comment on above: Performed By: #### C MP, CRP, TSH #### [facility] Laboratory [address] [address] [address] Andrade Alvarado Anion gap [Moles/Vol] 11.3 mmol/L Normal [facility] Comment on above: Performed By: #### C MP, CRP, TSH #### [facility] Laboratory [address] [address] [address] Andrade Alvarado AST [Catalytic activity/Vol] 23 U/L Normal 15-[address] [facility] Comment on above: Performed By: #### C MP, CRP, TSH #### [facility] Laboratory [address] [address] [address] Andrade Alvarado Bilirubin [Mass/Vol] 0.5 mg/dL Normal 0.2-1.[address] [facility] Comment on above: Performed By: #### C MP, CRP, TSH #### [facility] Laboratory [address] [address] [address] Andrade Alvarado Calcium [Mass/Vol] 9.3 mg/dL Normal 8.5-10.1 [facility] Comment on above: Performed By: #### C MP, CRP, TSH #### [facility] Laboratory [address] [address] [address] Andrade Alvarado Chloride [Moles/Vol] 104 mmol/L Normal 98-[address] [facility] Comment on above: Performed By: #### C MP, CRP, TSH #### [facility] Laboratory [address] [address] [address] Andrade Alvarado CO2 [Moles/Vol] 27.2 mmol/L Normal 21.0-32.0 [facility] Comment on above: Performed By: #### C MP, CRP, TSH #### [facility] Laboratory [address] [address] [address] Andrade Alvarado Creatinine [Mass/Vol] 0.99 mg/dL Normal 0.55-1.[address] [facility] Comment on above: Performed By: #### C MP, CRP, TSH #### [facility] Laboratory [address] [address] [address] Andrade Alvarado EGFR-AF TONGAN >60 Normal >=60 [facility] Comment on above: Performed By: #### C MP, CRP, TSH #### [facility] Laboratory [address] [address] [address] Andrade Alvarado EGFR-NON AF TONGAN 57 mL/min/1.73m2 Critically low >=[address] [facility] Comment on above: Performed By: #### C MP, CRP, TSH #### [facility] Laboratory [address] [address] [address] Andrade Alvarado Globulin (S) [Mass/Vol] 3.3 g/dL Normal [facility] Comment on above: Performed By: #### C MP, CRP, TSH #### [facility] Laboratory [address] [address] [address] Andrade Alvarado Glucose [Mass/Vol] 97 mg/dL Normal 74-106 [facility] Comment on above: Performed By: #### C MP, CRP, TSH #### [facility] Laboratory [address] [place] [address] Dr. Andrade Alvarado Potassium [Moles/Vol] 3.5 mmol/L Normal 3.5-5.[address] [facility] Comment on above: Performed By: #### C MP, CRP, TSH #### [facility] Laboratory [address] [place] [address] Dr. Andrade Alvarado Protein [Mass/Vol] 7.5 g/dL Normal 6.4-8.2 [facility] Comment on above: Performed By: #### C MP, CRP, TSH #### [facility] Laboratory [address] [place] [address] Dr. Andrade Alvarado Sodium [Moles/Vol] 139 mmol/L Normal 136-145 [facility] Comment on above: Performed By: #### C MP, CRP, TSH #### [facility] Laboratory [address] [place] [address] Dr. Andrade Alvarado Urea nitrogen [Mass/Vol] 22.0 mg/dL Critically high 7.0-18.[address] [facility] Comment on above: Performed By: #### C MP, CRP, TSH #### [facility] Laboratory [address] [place] [address] Dr. Andrade Alvarado Urea nitrogen/Creatinine [Mass ratio] 22.2 mg/mg Normal [facility] Comment on above: Performed By: #### C MP, CRP, TSH #### [facility] Laboratory [address] [place] [address] Dr. Andrade Alvarado SED RATE WESTERGRENon 2021 SED RATE 22 mm/hr Normal <=30 [facility] Comment on above: Performed By: #### S EDR ####[facility] [address] [place] [address]Dr. Andrade Alvarado TSHon 05-20-2022 TSH 1.373 uIU/mL Normal 0.358-3.740 [facility] Comment on above: Performed By: #### C MP, CRP, TSH #### [facility] Laboratory [address] [address] [address] Andrade Alvarado CBC AUTO DIFFon 02-16-2022 BASO # 0.0 103/ul Normal 0.0-0.[address] [facility] Comment on above: Performed By: #### C BC ####[facility] [address] [place] [address]DrMehreen Alvarado Basophils/100 WBC (Bld) 0.9 % Normal 0.2-2.[address] [facility] Comment on above: Performed By: #### C BC ####[facility] [address] [place] [address]DrMehreen Alvarado EO # 0.1 103/ul Normal 0.0-0.7 [facility] Comment on above: Performed By: #### C BC ####[facility] [address]sca[address] [place] [address]Dr. Andrade Alvarado Eosinophils/100 WBC (Bld) 2.3 % Normal 0.9-7.0 [facility] Comment on above: Performed By: #### C BC ####[facility] [address] [place] [address]DrMehreen Alvarado Erythrocyte distribution width (RBC) [Ratio] 12.6 % Normal 11.0-15.0 [facility] Comment on above: Performed By: #### C BC ####[facility] I[address]oznak[address] [place] [address]DrMehreen Alvarado Hematocrit (Bld) [Volume fraction] 37.8 % Normal 36.0-48.0 [facility] Comment on above: Performed By: #### C BC ####[facility] [address] [place] [id number]. Andrade Alvarado Hemoglobin (Bld) [Mass/Vol] 12.3 g/dL Normal 12.0-16.0 [facility] Comment on above: Performed By: #### C BC ####[facility] K[address]qxtval[address] [place] [id number]. Andrade Alvarado IG # 0.02 10e3/ul Normal 0.00-0.03 [facility] Comment on above: Performed By: #### C BC ####[facility] E[address]zos[address] [place] [address]Dr. Andrade Alvarado IG % 0.5 % Normal 0.0-0.5 [facility] Comment on above: Performed By: #### C BC ####[facility] Rkclszrxxw[address] [place], [place] [address]Dr. Andrade Alvarado LYMPH # 2.1 103/ul Normal 1.2-3.8 [facility] Comment on above: Performed By: #### C BC ####[facility] Sgqpwiilud24[address] [place], [place] [address]Dr. Andrade Alvarado Lymphocytes/100 WBC (Bld) 48.3 % Normal 20.5-60.0 [facility] Comment on above: Performed By: #### C BC ####[facility] Fbtvrpvopx[address] [place], [place] [address]Dr. Andrade Alvarado MANUAL DIFF REQ NO Normal [facility] Comment on above: Performed By: #### C BC ####[facility] Wbrnusexcc[address] [place], [place] [address]Dr. Andrade Alvarado MCH (RBC) [Entitic mass] 31.9 pg Normal 26.7-34.0 [facility] Comment on above: Performed By: #### C BC ####[facility] Kmmffdmxys[address] [place], [place] [address]Dr. Andrade Alvarado MCHC (RBC) [Mass/Vol] 32.5 g/dL Normal 29.9-35.2 [facility] Comment on above: Performed By: #### C BC ####[facility] By[address]uly[address] [place] [id number]. Andrade Alvarado MCV (RBC) [Entitic vol] 97.9 fL Normal 81.0-99.0 [facility] Comment on above: Performed By: #### C BC ####[facility] Ev[address]yagpx[address] [place] [id number]. Andrade Alvarado MONO # 0.5 103/ul Normal 0.3-0.8 [facility] Comment on above: Performed By: #### C BC ####[facility] [address]ubnzljxvu[address] [place] [id number]. Andrade Alvarado Monocytes/100 WBC (Bld) 11.2 % Normal 1.7-12.0 [facility] Comment on above: Performed By: #### C BC ####[facility] B[address]ftergl[address] [place] [id number]. Andrade Alvarado NEUT # 1.6 103/ul Normal 1.4-6.5 [facility] Comment on above: Performed By: #### C BC ####[facility] Ad[address]xxhtmk[address] [place] [id number]. Andrade Alvarado Neutrophils/100 WBC (Bld) 36.8 % Critically low 43.0-75.0 [facility] Comment on above: Performed By: #### C BC ####[facility] [address]jvwdzua[address] [place] [id number]. Andrade Alvarado Platelet mean volume (Bld) [Entitic vol] 9.9 fL Normal 9.5-13.5 [facility] Comment on above: Performed By: #### C BC ####[facility] K[address]pycrts[address] [place] [id number]. Andrade Alvarado PLT 213 103/ul Normal 150-450 [facility] Comment on above: Performed By: #### C BC ####[facility] [address]qjdxwjqh[address] [place] [id number]. Andrade Alvarado RBC 3.86 106/ul Critically low 4.20-5.40 [facility] Comment on above: Performed By: #### C BC ####[facility] [address] [place] [address]Dr. Andrade Alvarado WBC 4.4 103/ul Normal 4.0-11.[address] [facility] Comment on above: Performed By: #### C BC ####[facility] Q[address]mtoyc[address] [place] [address]Dr. Andrade Alvarado PROF 14(COMP METB)on 022 Albumin [Mass/Vol] 4.2 g/dL Normal 3.4-5.0 [facility] Comment on above: Performed By: #### C MP #### [facility] Laboratory [address] [address] [address] Andrade Alvarado Albumin/Globulin [Mass ratio] 1.3 {ratio} Normal [facility] Comment on above: Performed By: #### C MP #### [facility] Laboratory [address] [place] [address] Dr. Andrade Alvaardo ALP [Catalytic activity/Vol] 61 U/L Normal 46-[address] [facility] Comment on above: Performed By: #### C MP #### [facility] Laboratory [address] [place] [address] Dr. Andrade Alvarado ALT [Catalytic activity/Vol] 23 U/L Normal 14-[address] [facility] Comment on above: Performed By: #### C MP #### [facility] Laboratory [address] [place] [address] Dr. Andrade Alvarado Anion gap [Moles/Vol] 15.5 mmol/L Normal [facility] Comment on above: Performed By: #### C MP #### [facility] Laboratory [address] [place] [address] Dr. Andrade Alvarado AST [Catalytic activity/Vol] 20 U/L Normal 15-[address] [facility] Comment on above: Performed By: #### C MP #### [facility] Laboratory [address] [place] [address] Dr. Andrade Alvarado Bilirubin [Mass/Vol] 0.5 mg/dL Normal 0.2-1.[address] [facility] Comment on above: Performed By: #### C MP #### [facility] Laboratory [address] [place] [address] Dr. Andrade Alvarado Calcium [Mass/Vol] 9.1 mg/dL Normal 8.5-10.1 [facility] Comment on above: Performed By: #### C MP #### [facility] Laboratory [address] [address] [address] Andrade Alvarado Chloride [Moles/Vol] 106 mmol/L Normal 98-107 [facility] Comment on above: Performed By: #### C MP #### [facility] Laboratory [address] [address] [address] Andrade Alvarado CO2 [Moles/Vol] 25.6 mmol/L Normal 21.0-32.0 [facility] Comment on above: Performed By: #### C MP #### [facility] Laboratory [address] [place] [address] Dr. Andrade Alvarado Creatinine [Mass/Vol] 0.97 mg/dL Normal 0.55-1.[address] [facility] Comment on above: Performed By: #### C MP #### [facility] Laboratory [address] [place] [address] Dr. Andrade Alvarado EGFR-AF TONGAN >60 Normal >=60 [facility] Comment on above: Performed By: #### C MP #### [facility] Laboratory [address] [place] [address] Dr. Andrade Alvarado EGFR-NON AF TONGAN 58 mL/min/1.73m2 Critically low >=60 [facility] Comment on above: Performed By: #### C MP #### [facility] Laboratory [address] [place] [address] Dr. Andrade Alvarado Globulin (S) [Mass/Vol] 3.2 g/dL Normal [facility] Comment on above: Performed By: #### C MP #### [facility] Laboratory [address] [address] [address] Andrade Alvarado Glucose [Mass/Vol] 91 mg/dL Normal 74-106 [facility] Comment on above: Performed By: #### C MP #### [facility] Laboratory [address] [place] [address] Dr. Andrade Alvarado Potassium [Moles/Vol] 4.1 mmol/L Normal 3.5-5.[address] [facility] Comment on above: Performed By: #### C MP #### [facility] Laboratory [address] [address] [address] Andrade Alvarado Protein [Mass/Vol] 7.4 g/dL Normal 6.4-8.2 [facility] Comment on above: Performed By: #### C MP #### [facility] Laboratory [address] [address] [address] Andrade Alvarado Sodium [Moles/Vol] 143 mmol/L Normal 136-145 [facility] Comment on above: Performed By: #### C MP #### [facility] Laboratory [address] [address] [address] Andrade Alvarado Urea nitrogen [Mass/Vol] 18.0 mg/dL Normal 7.0-18.[address] [facility] Comment on above: Performed By: #### C MP #### [facility] Laboratory [address] [address] [address] Andrade Alvarado Urea nitrogen/Creatinine [Mass ratio] 18.6 mg/mg Normal [facility] Comment on above: Performed By: #### C MP #### [facility] Laboratory [address] [place] [address] Dr. Andrade Alvarado SED RATE [facility] 2021 SED RATE 15 mm/hr Normal <=[address] [facility] Comment on above: Performed By: #### S EDR #### [facility] Laboratory [address] [place] [address] Dr. Andrade Alvarado KNEE LEFT 3 [facility] 04-25-2020 KNEE LEFT 3 S [facility] Department of Radiology [address] [place] [id number] Patient Name: RADHA ZAIDI : 1960 Sex: F Age: Race: White Pt. 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 Electronically signed: Eliezer Cam. Transcribed by: [email or web address], User Resident: Electronically Signed by: ELIEZER CAM @ 04/25/2020 11:44 AM Normal [facility] Comment on above: Order Comment: Evalu ate TIBIA FIBULA LEFTon 03-27-20 20 TIBIA FIBULA LEFT [facility] Department of Radiology [address] [place] [phone] Patient Name: RADHA ZAIDI : 1960 Sex: F Age: Race: White Pt. Location: 84 Patient Status: Ordered Date: 03/27/2020 8:05:00 AM Completed Date: 03/27/2020 08:35 AM Requesting Provider: CHARLI LUKE Attending Provider: Report Copy To: Signs & Symptoms: S82.832A Oth fracture of upper and lower end of left fibula, init I10 History: [place] Comments: , , , Ordering Provider - [...] healing Electronically signed: Crissy Dubon. Transcribed by: [email or web address], User Resident: Electronically Signed by: CRISSY DUBON @ 03/27/2020 09:11 AM Normal [facility] Comment on above: Order Comment: Evalu ate Operative Reporton 0 Operative Report MR#: [id number] [facility] Pt. Name: Radha Zaidi Room #: [...] were bluntly retracted. We then used a [place] as well as a hemostat to debride [...] Paniagua MD Date Trans: 03/13/2020 02:26 A/bryson YBARRA_JN:[id number] cc: John Ashby D.O. [address] [place] [address], [place] [address] Normal [facility] KNEE LEFT 1 OR 2 Son 03-12 KNEE LEFT 1 OR 2 VWS [facility] Department of Radiology [address] [place] [id number] Patient Name: RADHA ZAIDI : 1960 [...] GRAFT Exam: KNEE LEFT [address] [facility] Intraoperative fluoroscopic guidance HISTORY: Fracture fixation. COMPARISON: 02/04/2020 radiographs. IMPRESSION: 1. There are 3 images, total time of 2.6 minutes. 2. Hardware projects over the proximal fibular shaft fracture. Electronically signed: Rahul James. Transcribed by: [id number], User Resident: Electronically Signed by: RAHUL JAMES @ 03/12/2020 03:20 PM Normal [facility] Comment on above: Order Comment: Evalu ate POC GLUCOSE LABon 03-12-2020 Glucose [Mass/Vol] 103 mg/dL High 70-100 [facility] Comment on above: Performed By: #### 8 5499 ####[facility] [address] *MRSA/MSSA DNA NASALon 03-08 *MRSA/MSSA DNA NASAL Clinical Report: (D ) Specimen: NASAL SWAB Collected: 03/08/2020 14:02 Status: Final Last Updated: 03/09/2020 09:30 MSSA DNA (Final) Negative MRSA DNA (Final) Negative Normal [facility] Comment on above: Performed By: #### 3 1595 ####[facility] [address] *SARS-CoV-2 COVID-19on 03-08 [id number] Not Detected Normal Not Detected [facility] Comment on above: Order Comment: The A ptima SARS-CoV-2 assay is a nucleic acid amplification test intended for the qualitative detection of RNA from SARS-CoV-2 isolated and purified from nasopharyngeal (NETWORK SYSTEMS ANALYST),oropharyngeal (OP), nasal swab, sputum, and bronchoalveolar lavage (BAL) specimens from patients with signs and symptoms of infection who are suspected of COVID-19. Results are for the identification of SARS-CoV-2 RNA. The SARS-CoV-2 RNA is generally detectable during the acute phase of infection. The Aptima SARS-CoV-2 Assay on the FirstRain and FirstRain Fusion system is intended for use by laboratory personnel specifically instructed and trained in the operation of the Pearson and FirstRain Fusion system. The Aptima SARS-CoV-2 assay is [...] information. Performed By: #### 3 1792 #### [facility] [address] APTTon 03-08-2020 aPTT Coag (Bld) [Time] 26.9 s Normal 25.0-35.0 [facility] Comment on above: Result Comment: ALL [...] THIS PURPOSE. Performed By: #### 5 6101, [address] ####[facility] BASIC METABOLIC PANELon 02-09 Calcium [Mass/Vol] 9.7 mg/dL Normal 8.6-10.3 [facility] Comment on above: Performed By: #### 0 0071 #### [facility] [address] Chloride [Moles/Vol] 103 mmol/L Normal 98-107 [facility] Comment on above: Performed By: #### 0 0071 #### [facility] [address] CO2 [Moles/Vol] 31 mmol/L Normal 21-31 [facility] Comment on above: Performed By: #### 0 0071 #### [facility] [address] Creatinine [Mass/Vol] 0.87 mg/dL Normal 0.60-1.20 [facility] Comment on above: Performed By: #### 0 0071 #### [facility] [address] GFR/1.73 sq M predicted among blacks MDRD (S/P/Bld) [Vol rate/Area] mL/min/{1.73_m2} Normal >60 [facility] Comment on above: Performed By: #### 0 0071 #### [facility] [address] [place] [address], [facility] GFR/1.73 sq M predicted among non-blacks MDRD (S/P/Bld) [Vol rate/Area] mL/min/{1.73_m2} Normal >60 [facility] Comment on above: Performed By: #### 0 0071 #### [facility] [address] [place] [address], [facility] Glucose [Mass/Vol] 106 mg/dL High 70-100 [facility] Comment on above: Performed By: #### 0 0071 #### [facility] [address] Potassium [Moles/Vol] 4.3 mmol/L Normal 3.5-5.1 [facility] Comment on above: Performed By: #### 0 0071 #### [facility] [address] Sodium [Moles/Vol] 141 mmol/L Normal 136-145 [facility] Comment on above: Performed By: #### 0 0071 #### [facility] [address] [place] [address], [facility] Urea nitrogen [Mass/Vol] 14 mg/dL Normal 7-25 [facility] Comment on above: Performed By: #### 0 0071 #### [facility] [address] [place] [address], [facility] CBC W/DIFFon 03-08-2020 ABS BASOPHILS 0.1 10*3/uL Normal 0.0-0.2 [facility] Comment on above: Performed By: #### 5 0103 ####[facility] ABS IMM GRANS 0.0 10*3/uL Normal 0.0-0.2 [facility] Comment on above: Performed By: #### 5 0103 ####[facility] [place] [address], [facility] ABS NEUTROPHILS 3.4 10*3/uL Normal 1.6-7.6 [facility] Comment on above: Performed By: #### 5 3 ####[facility] [place] [address], [facility] Basophils/100 WBC (Bld) 0.8 % Normal 0.0-1.0 [facility] Comment on above: Performed By: #### 3 ####[facility] [place] [address], [facility] Eosinophils (Bld) [#/Vol] 0.7 10*3/uL High 0.0-0.5 [facility] Comment on above: Performed By: #### 102 ####[facility] [place] [address], [facility] Eosinophils/100 WBC (Bld) 9.5 % High 0.0-6.0 [facility] Comment on above: Performed By: #### 5 3 ####[facility].[address] Erythrocyte distribution width (RBC) [Ratio] 13.6 % Normal 11.5-15.0 [facility] Comment on above: Performed By: #### 3 ####[facility] [place] [address], [facility] Hematocrit (Bld) [Volume fraction] 42.5 % Normal 36.0-45.0 [facility] Comment on above: Performed By: #### 102 ####[facility] [place] [address], [facility] Hemoglobin (Bld) [Mass/Vol] 13.7 g/dL Normal 12.0-15.0 [facility] Comment on above: Performed By: #### 5 0103 ####[facility] IMMATURE GRANS 0.3 % Normal 0.0-1.0 [facility] Comment on above: Performed By: #### 3 ####[facility] Lymphocytes (Bld) [#/Vol] 2.7 10*3/uL Normal 1.2-4.0 [facility] Comment on above: Performed By: #### 3 ####[address] Lymphocytes/100 WBC (Bld) 35.1 % Normal 20.0-45.0 [facility] Comment on above: Performed By: #### 3 ####[address] MCH (RBC) [Entitic mass] 31.2 pg Normal 27.0-33.0 [facility] Comment on above: Performed By: #### 5 3 ####[address] MCHC (RBC) [Mass/Vol] 32.2 g/dL Normal 32.0-35.0 [facility] Comment on above: Performed By: #### 3 ####[facility] [place] [address] MCV (RBC) [Entitic vol] 96.8 fL Normal 82.0-98.0 [facility] Comment on above: Performed By: #### 3 ####[address] Monocytes (Bld) [#/Vol] 0.8 10*3/uL Normal 0.1-1.0 [facility] Comment on above: Performed By: #### 5 0103 ####[facility] [place] [address], [facility] MONOS 9.8 % Normal 5.0-12.0 [facility] Comment on above: Performed By: #### 5 3 ####[facility] [place] [address], [facility] Neutrophils/100 WBC (Bld) 44.5 % Normal 40.0-72.0 [facility] Comment on above: Performed By: #### 5 3 ####[facility] [place] [address], [facility] Nucleated RBC/100 WBC (Bld) [Ratio] 0 % Normal 0-0 [facility] Comment on above: Performed By: #### 5 3 ####[facility].[address] PLAT CNT 230 10*3/uL Normal 150-400 [facility] Comment on above: Performed By: #### 5 0103 ####[facility] [place] [address], [facility] RBC (Bld) [#/Vol] 4.39 10*6/uL Normal 3.80-5.00 [facility] Comment on above: Performed By: #### 5 0103 ####[facility] [place] [address], [facility] WBC (Bld) [#/Vol] 7.72 10*3/uL Normal 4.00-10.60 [facility] Comment on above: Performed By: #### 5 0103 ####[facility].[address] PROTHROMBIN TIMEon 0 INR Coag (PPP) [Relative time] 0.99 {INR} Normal 0.91-1.16 [facility] Comment on above: Result Comment: ACCC [...] CHEST 1995;108:231S-246S. Performed By: #### 5 6101, 92491 #### [facility] [address] [facility]. [address] PT Coag (PPP) [Time] 13.1 s Normal 12.3-14.8 [facility] Comment on above: Result Comment: ALL RESULTS MUST BE INTERPRETED WITH RESPECT TO BLOOD DRAWING ARTIFACT OR DILUTION ERROR OF ANTICOAGULANT AT THE TIME OF SAMPLING. Performed By: #### 5 6101, 58469 #### [facility] [address] [facility] [address] ALBUMIN BLOODon 02-04-2020 Albumin [Mass/Vol] 4.5 g/dL Normal 3.5-5.7 [facility] Comment on above: Performed By: #### 3 0728, 35218, 55551, 82723, 15515 #### [facility] [address] [place] [address], [facility] BASIC METABOLIC PANELon 01-09 Calcium [Mass/Vol] 9.5 mg/dL Normal 8.6-10.3 [facility] Comment on above: Performed By: #### 3 0728, 01509, 67722, 62089, 67840 #### [facility] [address] [place] [address], [place] Chloride [Moles/Vol] 105 mmol/L Normal 98-107 [facility] Comment on above: Performed By: #### 3 0728, 81091, 61332, 80130, 49208 #### [facility] [address] [place] [address], [place] CO2 [Moles/Vol] 27 mmol/L Normal 21-31 [facility] Comment on above: Performed By: #### 3 0728, 08590, 86847, 77427, 93509 #### [facility] [address] [place] [address], [place] Creatinine [Mass/Vol] 0.81 mg/dL Normal 0.60-1.20 [facility] Comment on above: Performed By: #### 3 0728, 88619, 13515, 18128, 44707 #### [facility] [address] [place] [address], [place] GFR/1.73 sq M predicted among blacks MDRD (S/P/Bld) [Vol rate/Area] mL/min/{1.73_m2} Normal >60 [facility] Comment on above: Performed By: #### 3 0728, 55025, 16929, 15067, 73203 #### [facility] [address] [place] [address], [place] GFR/1.73 sq M predicted among non-blacks MDRD (S/P/Bld) [Vol rate/Area] mL/min/{1.73_m2} Normal >60 [facility] Comment on above: Performed By: #### 3 0728, 10937, 12405, 09843, 16766 #### [facility] [address] [place] [address], [place] Glucose [Mass/Vol] 115 mg/dL High 70-100 [facility] Comment on above: Performed By: #### 3 0728, 14058, 69406, 10137, 28711 #### [facility] [address] [place] [address], [facility] Potassium [Moles/Vol] 3.9 mmol/L Normal 3.5-5.1 [facility] Comment on above: Performed By: #### 3 0728, 12662, 20227, 08238, 15704 #### [facility] [address] [place] [address], [facility] Sodium [Moles/Vol] 140 mmol/L Normal 136-145 [facility] Comment on above: Performed By: #### 3 0728, 06993, 92876, 32210, 87450 #### [facility] [address] [facility] [place] [address], [facility] Urea nitrogen [Mass/Vol] 20 mg/dL Normal 7-25 [facility] Comment on above: Performed By: #### 3 0728, 08141, 89362, 97367, 05687 #### [facility] [address] [facility] [address] PREALBUMINon 02-04-2020 Prealbumin [Mass/Vol] 24.0 mg/dL Normal 17.0-34.0 [facility] Comment on above: Performed By: #### 3 0728, 75654, 19564, 87077, 22148 #### [facility] [address] [facility]. [address] TIBIA FIBULA LEFTon 02-04-20 20 TIBIA FIBULA LEFT [facility] Department of Radiology [address] [place] [address] Patient Name: RADHA ZAIDI : 1960 Sex: F Age: Race: White Pt. Location: 84 Patient Status: Ordered Date: 02/04/2020 9:35:00 AM [...] indicated. Electronically signed: Eliezer Randolph. Transcribed by: [email or web address], User Resident: Electronically Signed by: ELIEZER RANDOLPH @ 02/04/2020 10:34 AM Normal [facility] TRANSFERRINon 02-04-2020 Transferrin [Mass/Vol] 270 mg/dL Normal 203-362 [facility] Comment on above: Performed By: #### 3 0728, 65094, 11708, 19078, 89786 #### [address] [place] [address], [place] VITAMIN D 25-HYDROXYon 02-03 VITAMIN D 25-OH 38.5 ng/mL Normal 30.0-80.0 [facility] Comment on above: Result Comment: >80. 0 Toxicity possible Performed By: #### 3 0728, 01503, 17686, 46897, 44079 #### [facility] [address] [place] [address], [facility] Gregor 07-06-2018 L - -------- Specimen: [id number] Received: 07/06/18 Status: JONI Lazaro Num: [id number] Spec Type: Surgical Subm Dr: Tash Resendez MD Tissues: A Finger - Amputation, Non-traumatic (LT SMALL FINGER) Procedures: HE Stain/2, Gross/Micro L4, Decal -------- Patient Age/Sex Location Account Attending Physician -------- Radha Zaidi 58/F [place] [id number] Tash Resendez MD -------- SPEC NUM: [id number] RECD: 07/06/18 STATUS: JONI LAZARO NUM: [id number] RUSS: 07/06/18 DR: Tash Resendez MD ENTERED: 07/06/18 [facility] DR: JULIUS TYPE: Surgical DEPT: S ORDERED: [...] reveals yellow, viable appearing bony cut surfaces. Financial Associate sections are submitted in two cassettes, decal. (ENRIKE/NAA/lina) -------- Specimen: [id number] Received: 07/06/18 Status: KAROLINAMulu Req Num: [id number] Spec Type: Surgical Subm Dr: Tash Resendez MD Tissues: A Finger - Amputation, Non-traumatic (LT SMALL FINGER) Procedures: HE Stain/2, Gross/Micro L4, Decal -------- Patient: Radha Zaidi [id number] (Continued) -------- Specimen: Received: 07/06/18 (Continued) Signed (signature on file) Harsh Jo MD 08/14/18 1503 -------- Specimen: [id number] Received: 07/06/18 Status: JONI Req Num: [id number] Spec Type: Surgical Subm Dr: Tash Resendez MD Tissues: A Finger - Amputation, Non-traumatic (LT SMALL FINGER) Procedures: HE Stain/2, Gross/Micro L4, Decal -------- Patient: Radha Zaidi [id number] (Continued) -------- Specimen: [id number] Received: 07/06/18 (Continued) Microscopic Two glass slides with H E stained material have been examined. The microscopic findings support the above pathologic diagnosis. [id number], [id number] A. - - LT SMALL FINGER -------- -------- Specimen: [id number] Received: 07/06/18 Status: JONI Lazaro Num: [id number] Spec Type: Surgical Subm Dr: Tash Resendez MD Tissues: A Finger - Amputation, Non-traumatic (LT SMALL FINGER) Procedures: HE Stain/2, Gross/Micro L4, Decal -------- Patient: Radha Zaidi [id number] (Continued) -------- Signed (signature on file) Harsh Jo MD 08/14/18 1503 [facility] FLUORO FOR SURGICAL PROCEDUR ESon 10-20-2017 FLUORO FOR SURGICAL PROCEDURES Exam: FLUORO FOR SURGICAL PROCEDURESHistory: ACDF Fusion Findings: Fluoroscopy time was 70 seconds A total of 19 fluoroscopic images were obtained by Dr. Cheng during the anterior cervical discectomy in the lower cervical spine.IMPRESSION: Impression: Fluoroscopic assistance provided for operative guidance.Interpreted by:DIANA Lealigned by:Eugene Cancino MD10/20/17inal result Normal [facility] Basic Metabolic Panelon 04-0 Anion gap 15 mmol/L Critically high 7-13 [facility] Calcium 9.6 mg/dL Normal 8.6-10.2 [facility] Chloride 102 mmol/L Normal 98-107 [facility] CO2 23 mmol/L Normal 22-29 [facility] Creatinine 0.54 mg/dL Normal 0.50-0.90 [facility] eGFR (black) mL/min/{1.73_m2} Normal >60 [facility] Comment on above: Result Comment: >60 mL/min/1.73m2 EGFR, calc. for ages 18 and older using theMDRD formula (not corrected for weight), is valid for stablerenal function. eGFR (MDRD) mL/min/{1.73_m2} Normal >60 [facility] Comment on above: Result Comment: >60 mL/min/1.73m2 EGFR, calc. for ages 18 and older using theMDRD formula (not corrected for weight), is valid for stablerenal function. Glucose mass conc 97 mg/dL Normal 74-109 [facility] Potassium molar conc 4.8 mmol/L Normal 3.5-5.1 [facility] Sodium 140 mmol/L Normal 132-144 [facility] Urea nitrogen 14 mg/dL Normal 6-20 [facility] CBC With Platelet No Differe ntialon 10-13-2017 Erythrocyte distribution width Auto Ratio (RBC) 13.3 % Normal 11.5-14.5 [facility] Erythrocytes (RBC) 4.96 10*6/uL Normal 4.20-5.40 [facility] Hematocrit (HCT) 47.1 % Critically high 37.0-47.0 [facility] Hemoglobin mass conc (Bld) 16.2 g/dL Critically high 12.0-16.0 [facility] MCH 32.7 pg Critically high 27.0-31.3 [facility] MCHC mass conc (RBC) 34.4 % Normal 33.0-37.0 [facility] MCV 95.0 fL Normal 82.0-100.0 [facility] Platelets 223 10*3/uL Normal 130-400 [facility] WBC (Leukocytes) 6.2 10*3/uL Normal 4.8-10.8 [facility] Culture, MRSA Screenon 10-13 Culture, MRSA Screen ORDERED BY: VITO STALLWORTH: Nares Nose COLLECTED: 10/13/17 13:18ANTIBIOTICS AT [facility]USS.: RECEIVED : 10/13/17 13:18Culture, MRSA Screen FINAL 10/14/17 13:59 No MRSA isolated Normal [facility] Partial Thromboplastin Timeo n 10-13-2017 aPTT 22.9 s Normal 21.6-35.4 [facility] Comment on above: Result Comment: Hepa rin Therapeutic Range: 38.8 - 54.6 seconds. Prothrombin Timeon 201 8 INR Coag RelTime (PPP) 1.0 {INR} Normal [facility] Comment on above: Result Comment: [...] Coag time (PPP) 10.0 s Normal 8.1-13.7 [facility] Type and Screen Capture 3 sc rn cellon 10-13-2017 Bilirubin (total) PATIENT: DYAN GARCIA LOC: [place]# : [id number] : 1960 SEX: FORDERED BY: BASIM CHENG ORDERED : 10/13/2017 12:41 COLLECTED: 10/13/2017 13:24ORDER : [id number] RECEIVED : 10/13/2017 13:24 T EST NAME RESULT UNITS RANGES ABN FL STABORH Capture A POS FAntibody 3 Cell Scrn Captu NEG F Normal [facility] Urinalysis, reflex to cultur gabbie 10-13-2017 Bilirubin Ql (U) Negative Normal Negative [facility] Urine Reflexed to Culture Not Indicated Normal [facility] Urine, clarity Clear Normal Clear [facility] Urine, color Yellow Normal Straw/[place] [facility] Urine, glucose presence Negative Normal Negative [facility] Urine, hemoglobin presence Negative Normal Negative [facility] Urine, ketones presence Negative Normal Negative [facility] Urine, leukocyte esterase presence Negative Normal Negative [facility] Urine, nitrite presence Negative Normal Negative [facility] Urine, pH 5.5 [pH] Normal 5.0-9.0 [facility] Urine, protein presence Negative Normal Negative [facility] Urine, specific gravity 1.018 Normal 1.005-1.03 [facility] Urine, urobilinogen 0.2 {Rajwinder'U}/dL Normal < 2.0 [facility] Vital Signs Date Time Vital Sign Value Performing Clinician Facility 12-28-2023 15:31-0400 Body height 165.1 cm [facility] 12-28-2023 15:31-0400 Body mass index (BMI) [Ratio] 25.7 kg/m2 [facility] 12-28-2023 15:31-0400 Body weight 70.08 kg [facility] 12-28-2023 15:31-0400 Diastolic blood pressure 75 mm[Hg] [facility] 12-28-2023 15:31-0400 Heart rate 92 /min [facility] 12-28-2023 15:31-0400 Respiratory rate 12 /min [facility] 12-28-2023 15:31-0400 Systolic blood pressure 112 mm[Hg] [facility] 09-28-2023 15:16-0400 Body height 165.1 cm [facility] 09-28-2023 15:16-0400 Body mass index (BMI) [Ratio] 27.8 kg/m2 [facility] 09-28-2023 15:16-0400 Body weight 75.92 kg [facility] 09-28-2023 15:16-0400 Diastolic blood pressure 68 mm[Hg] [facility] 09-28-2023 15:16-0400 Heart rate 80 /min [facility] 09-28-2023 15:16-0400 Respiratory rate 12 /min [facility] 09-28-2023 15:16-0400 Systolic blood pressure 130 mm[Hg] [facility] 09-05-2023 21:48-0500 Body height 166.37 cm John Ball Other [employer] [facility] [employer] Other 09-05-2023 16:33-0500 Body height 165.1 cm [facility] 09-05-2023 16:33-0500 Body mass index (BMI) [Ratio] 28.5 kg/m2 [facility] 09-05-2023 16:33-0500 Body weight 77.79 kg [facility] 09-05-2023 16:33-0500 Diastolic blood pressure 69 mm[Hg] [facility] 09-05-2023 16:33-0500 Heart rate 97 /min [facility] 09-05-2023 16:33-0500 Systolic blood pressure 115 mm[Hg] [facility] 08-18-2023 15:40-0500 Body height 162.6 cm Jordan [employer] Work Phone: [facility] 08-18-2023 15:40-0500 Body mass index (BMI) [Ratio] 28.15 kg/m2 [employer] Work Phone: [facility] 08-18-2023 15:40-0500 Body temperature 97.11 [degF] [employer] Work Phone: [facility] [employer] 08-18-2023 15:40-0500 Body weight 74.39 kg [employer] Work Phone: [facility] [employer] 08-17-2023 15:00-0500 Body height 166.37 cm John Ball Other [employer] [facility] [employer] Other 08-17-2023 15:00-0500 Body mass index (BMI) [Ratio] 28.12 kg/m2 John Ball Other [employer] Other 08-17-2023 15:00-0500 Body weight 77.84 kg John Ball Other [employer] Other 08-17-2023 15:00-0500 Diastolic blood pressure 79 mm[Hg] John Ball Other [employer] Other 08-17-2023 15:00-0500 Respiratory rate 12 /min John Ball Other [employer] Other 08-17-2023 15:00-0500 Systolic blood pressure 126 mm[Hg] John Ball Other [employer] Other 04-07-2023 14:00-0400 Body temperature 97.52 [degF] Jordan [employer] [facility] 04-07-2023 14:00-0400 Diastolic blood pressure 63 mm[Hg] Jordan Krux [facility] 04-07-2023 14:00-0400 Heart rate 88 /min Jordan [employer]ru[employer] [facility] 04-07-2023 14:00-0400 Mean blood pressure 76 mm[Hg] Jordan Krux [facility] 04-07-2023 14:00-0400 SaO2% (BldA) [Mass fraction] 94 % Jordan Krux [facility] 04-07-2023 14:00-0400 Systolic blood pressure 101 mm[Hg] Jordan Krux [facility] 04-07-2023 08:47-0400 Diastolic blood pressure 75 mm[Hg] Jordan Krux [facility] 04-07-2023 08:47-0400 Systolic blood pressure 125 mm[Hg] Jordan Krux [facility] 04-07-2023 07:45-0400 Blood Pressure Location Jordan Yuan [facility] 04-07-2023 07:45-0400 Body temperature 97.88 [degF] Jordan Yuan [facility] 04-07-2023 07:45-0400 Diastolic blood pressure 75 mm[Hg] Jordan Yuan [facility] 04-07-2023 07:45-0400 Heart rate 72 /min Jordan Yuan [facility] 04-07-2023 07:45-0400 Hourly Rounding Jordan Yuan [facility] 04-07-2023 07:45-0400 Mean blood pressure 92 mm[Hg] Jordan Yuan [facility] 04-07-2023 07:45-0400 Promise to Return Jordan Yuan [facility] 04-07-2023 07:45-0400 Respiratory rate 16 /min Jordan Yuan [facility] 04-07-2023 07:45-0400 SaO2% (BldA) [Mass fraction] 96 % Jordan Yuan [facility] 04-07-2023 07:45-0400 Systolic blood pressure 125 mm[Hg] Jordan Yuan [facility] 04-07-2023 06:17-0400 Hourly Rounding Jordan Yuan [facility] 04-07-2023 06:17-0400 Promise to Return Jordan Yuan [facility] 04-07-2023 05:05-0400 Hourly Rounding Jordan Yuan [facility] 04-07-2023 05:05-0400 Promise to Return Jordan Yuan [facility] 04-06-2023 22:20-0400 Blood Pressure Location Jordan Yuan [facility] 04-06-2023 22:20-0400 Body temperature 98.24 [degF] Jordan Yuan [facility] 04-06-2023 22:20-0400 Heart rate 74 /min Jordan Yuan [facility] 04-06-2023 22:20-0400 Mean blood pressure 78 mm[Hg] Jordan Yuan [facility] 04-06-2023 22:20-0400 Respiratory rate 16 /min Jordan Yuan [facility] 04-06-2023 22:20-0400 SaO2% (BldA) [Mass fraction] 93 % Jordan Yuan [facility] 04-06-2023 20:10-0400 Heart rate 65 /min Jordan Yuan [facility] 04-06-2023 20:01-0400 Body temperature 97.34 [degF] Jordan Yuan [facility] 04-06-2023 20:00-0400 Mean blood pressure 86 mm[Hg] Jordan Yuan [facility] 04-06-2023 16:17-0400 Mean blood pressure 97 mm[Hg] Jordan Yuan [facility] 04-06-2023 16:16-0400 Body temperature 97.52 [degF] Jordan Yuan [facility] 04-06-2023 13:49-0400 Mean blood pressure 88 mm[Hg] Jordan Yuan [facility] 04-06-2023 12:45-0400 Respiratory rate 13 /min Jordan Brown [facility] 04-06-2023 12:35-0400 Respiratory rate 10 /min Jordan Brown [facility] 04-06-2023 12:20-0400 Respiratory rate 17 /min Jordan Brown [facility] 04-06-2023 11:37-0400 Body temperature 96.98 [degF] Jordan Brown [facility] 04-06-2023 06:39-0400 Heart rate 68 /min Jordan Brown [facility] 03-24-2023 14:52-0400 Diastolic blood pressure 76 mm[Hg] Jordan Brown [facility] 03-24-2023 14:52-0400 Heart rate 67 /min Jordan Brown [facility] 03-24-2023 14:52-0400 Mean blood pressure 99 mm[Hg] Jordan Brown [facility] 03-24-2023 14:52-0400 Systolic blood pressure 144 mm[Hg] Jordan Brown [facility] 03-24-2023 14:52-0400 Heart rate 68 /min Jordan Brown [facility] 03-24-2023 14:52-0400 SaO2% (BldA) [Mass fraction] 99 % Jordan Brown [facility] 03-24-2023 14:52-0400 Diastolic blood pressure 75 mm[Hg] Jordan Brown [facility] 03-24-2023 14:52-0400 Mean blood pressure 93 mm[Hg] Jordan Brown [facility] 03-24-2023 14:52-0400 Systolic blood pressure 128 mm[Hg] Jordan Brown [facility] 03-24-2023 14:51-0400 Respiratory rate 16 /min Jordan Yuan [facility] 01-10-2023 15:00-0400 Body height 166.37 cm John Ball Other [employer] Other 01-10-2023 15:00-0400 Body mass index (BMI) [Ratio] 27.04 kg/m2 John Ball Other [employer] Other 01-10-2023 15:00-0400 Body weight 74.84 kg John Ball Other [employer] Other 01-10-2023 15:00-0400 Diastolic blood pressure 86 mm[Hg] John Ball Other [employer] Other 01-10-2023 15:00-0400 Respiratory rate 12 /min John Ball Other [employer] Other 01-10-2023 15:00-0400 Systolic blood pressure 124 mm[Hg] John Ball Other [employer] Other 12-09-2022 09:00-0400 Body height 166.37 cm John Ball Other [employer] Other 12-09-2022 09:00-0400 Body mass index (BMI) [Ratio] 27.33 kg/m2 John Ball Other [employer] Other 12-09-2022 09:00-0400 Body weight 75.66 kg John Ball Other [employer] Other 12-09-2022 09:00-0400 Diastolic blood pressure 71 mm[Hg] John Ball Other [employer] Other 12-09-2022 09:00-0400 Respiratory rate 12 /min John Ball Other [employer] Other 12-09-2022 09:00-0400 Systolic blood pressure 111 mm[Hg] John Ball Other [employer] Other 11-09-2022 15:00-0400 Body height 166.37 cm John Ball Other [employer] Other 11-09-2022 15:00-0400 Body mass index (BMI) [Ratio] 27.36 kg/m2 John Ball Other [employer] Other 11-09-2022 15:00-0400 Body weight 75.75 kg John Ball Other [employer] Other 11-09-2022 15:00-0400 Diastolic blood pressure 80 mm[Hg] John Ball Other [employer] Other 11-09-2022 15:00-0400 Respiratory rate 12 /min John Ball Other [employer] Other 11-09-2022 15:00-0400 Systolic blood pressure 135 mm[Hg] John Ball Other [employer] Other 07-26-2022 16:30-0500 Body height 166.37 cm John Ball Other [employer] Other 07-26-2022 16:30-0500 Body mass index (BMI) [Ratio] 26.28 kg/m2 John Ball Other [employer] Other 07-26-2022 16:30-0500 Body weight 72.76 kg John Ball Other [employer] Other 07-26-2022 16:30-0500 Diastolic blood pressure 78 mm[Hg] John Ashby Other [employer] Other 07-26-2022 16:30-0500 Respiratory rate 12 /min John Ashby Other [employer] Other 07-26-2022 16:30-0500 Systolic blood pressure 122 mm[Hg] John Ashby Other [employer] Other Encounters Encounter Date Encounter Type Care Provider Facility Start: 12-28-2023 End: 12-28-2023 ambulatory [facility] Work Phone: Start: 12-28-2023 End: 12-28-2023 Patient encounter procedure [facility] Work Phone: Start: 11-15-2023 End: 11-15-2023 ambulatory JORDAN YUAN Not Available Start: 11-04-2023 End: 11-04-2023 ambulatory [facility] Start: 09-28-2023 End: 09-28-2023 ambulatory [facility] Work Phone: Start: 09-28-2023 End: 09-28-2023 Patient encounter procedure [facility] Work Phone: Start: 09-13-2023 End: 09-13-2023 ambulatory JORDAN YUAN Not Available Start: 09-06-2023 End: 09-07-2023 ambulatory Jordan Yuan Facility:[facility] Start: 09-06-2023 End: 09-06-2023 Patient encounter procedure Jordan Yuan [facility] Start: 09-05-2023 Non-patient / Non-visit [facility] Work Phone: Start: 09-05-2023 End: 09-05-2023 ambulatory John Ashby Other [employer] Other Start: 09-05-2023 Telephone encounter John Ashby FP [facility] Start: 09-02-2023 Non-patient / Non-visit [facility] Work Phone: Start: 08-30-2023 Non-patient / Non-visit [facility] Work Phone: Start: 08-18-2023 End: 08-18-2023 ambulatory JORDAN YUAN Not Available Start: 08-18-2023 End: 08-18-2023 Patient encounter procedure Jordan Yuan DO Work Phone: [facility] Comment on above: Right shoulder pain, unspecified chronicity (Primary Dx) Start: 08-18-2023 Chart abstracting Jordan do DO Work Phone: [facility] Start: 08-17-2023 End: 08-17-2023 ambulatory John Ashby Other [employer] Other Start: 08-17-2023 Encounter for genera l adult medical examination without abnormal findings John Ashby [facility] Start: 08-17-2023 Periodic preventive med est patient 40-64yrs John Ashby [facility] Start: 07-21-2023 End: 07-21-2023 ambulatory JORDAN YUAN Not Available Start: 07-05-2023 End: 07-05-2023 ambulatory JORDAN YUAN Not Available Start: 06-28-2023 End: 06-28-2023 ambulatory John Ashby Other [employer] Other Start: 06-28-2023 Office outpatient vi sit 15 minutes John Ashby [facility] Start: 05-24-2023 End: 05-24-2023 ambulatory JORDAN YUAN Not Available Start: 05-06-2023 End: 05-06-2023 ambulatory John Ashby Other [facility] Other Start: 05-06-2023 Telephone encounter John SIMON [facility] Start: 04-26-2023 End: 04-26-2023 ambulatory John Ashby Other [employer] Other Start: 04-26-2023 Telephone encounter John SIMON [facility] Start: 04-06-2023 End: 04-07-2023 ambulatory Jordan Yuan Facility:[facility] Start: 04-06-2023 End: 04-07-2023 Admission to same day surgery center Jordan Yuan [facility] Start: 03-31-2023 End: 03-31-2023 ambulatory John Ashby Other [employer] Other Start: 03-31-2023 Telephone encounter John Ashby FP [facility] Start: 03-26-2023 End: 03-26-2023 ambulatory John Ashby Other [employer] Other Start: 03-26-2023 Telephone encounter John Ashby FP [facility] Start: 03-24-2023 End: 03-25-2023 ambulatory Jordan Yuan Facility:[facility] Start: 03-24-2023 End: 03-24-2023 Patient encounter procedure Jordan Yuan [facility] Start: 03-21-2023 End: 03-21-2023 ambulatory John Ashby Other [facility] Other Start: 03-21-2023 Telephone encounter John Ashby FP [facility] Start: 01-12-2023 End: 01-12-2023 ambulatory John Ashby Other [employer] Other Start: 01-12-2023 Telephone encounter John Ashby FP [facility] Start: 01-10-2023 End: 01-10-2023 ambulatory John Ashby Other [employer] Other Start: 01-10-2023 Office outpatient vi sit 15 minutes John Ball [facility] Start: 12-14-2022 End: 12-14-2022 ambulatory John Ball Other [employer] Other Start: 12-14-2022 Telephone encounter John Ball FP [facility] Start: 12-10-2022 End: 12-10-2022 ambulatory John Ball Other [employer] Other Start: 12-10-2022 Telephone encounter John Ball [facility] Start: 12-09-2022 End: 12-09-2022 ambulatory John Ball Other [facility] Other Start: 12-09-2022 Office outpatient vi sit 15 minutes John Ball [facility] Start: 11-09-2022 End: 11-09-2022 ambulatory John Ball Other [employer] Other Start: 11-09-2022 Office outpatient vi sit 15 minutes John Ball [facility] Start: 10-13-2022 ambulatory NARENDRANATH LAKSHMIPATHY . Facility:[facility] Start: 10-07-2022 End: 10-08-2022 ambulatory NARENDRANATH LAKSHMIPATHY . Facility:[facility] Start: 09-22-2022 End: 09-22-2022 ambulatory John Ball Other [employer] Other Start: 09-22-2022 Telephone encounter John Ball [facility] Start: 09-16-2022 End: 09-17-[address] JOHN ASHBY Facility:[facility] Start: 08-14-2022 End: 08-14-2022 ambulatory John Ball Other [facility] Other Start: 08-14-2022 Telephone encounter John Ball [facility] Start: 07-26-2022 End: 01-16-2023 ambulatory John Ball Other [facility] Other Start: 07-26-2022 Office outpatient vi sit 15 minutes [facility] Start: 07-22-2022 Annual wellness visit John Ashby Other [employer] Other Start: 07-22-2022 Patient encounter procedure John Ashby Other [facility] Other Start: 07-09-2022 End: 07-10-[address] JOHN ASHBY Facility:[facility] Start: 06-21-2022 Adult health examination John Ashby Other [facility] Other Start: 06-21-2022 Gynecological examination normal John Ashby Other [facility] Other Start: 2022 End: 06-09-[address] JOHN ASHBY Facility:[facility] Start: 06-01-2022 End: 06-01-[address] JOHN ASHBY Facility:[facility] Start: 05-24-2022 Encounter for genera l adult medical examination without abnormal findings DR JOHN ASHBY [facility] Start: 05-20-2022 End: 05-21-[address] [...] End: 03-13-2020 Patient encounter procedure MARYURI ALEXANDER Facility:[facility] Start: 03-05-2020 End: 03-20-2020 Patient encounter procedure MARYURI ALEXANDER Facility:[facility] Start: 10-20-2017 End: 10-21-2017 [facility] Start: 10-13-2017 End: 10-18-[address] [facility] Procedures Date Procedure Procedure Detail Performing Clinician Start: 08-18-2023 Radex shoulder compl ete minimum 2 views Jordan Yuan DO Work Phone: Start: 04-06-2023 Total shoulder replacement Jordan Yuan Start: 03-12-2020 ANESTH KNEE AREA SURGERY TASH EVANS Start: 03-12-2020 ANTIONE BONE 20 SQ CM/< NAB IL EBHEIM Start: 03-12-2020 TREATMENT OF FIBULA FRACTURE MARYURI SUSAN Start: 10-21-2017 PULSE OXIMETRY, CONTINUOUS BARRY BASIM [...] of breast John Ashby Other Screening mammography Benjam ann Ashby Other Plan of Treatment Date Care Activity Detail Author Start: 10-04-2023 End: 10-04-2023 Patient encounter procedure 10/04/2023 3:45 PM EDT Office Visit [facility] [address] [place] [phone] Jordan Yuan, DO [address] [place] [address] [facility] Start: 08-18-2023 End: 08-18-2023 Patient encounter procedure 08/18/2023 3:45 PM EST Office Visit [facility] [address] [place] [place] [phone] Jordan Yuan, [address] [address] [facility] Start: 08-18-2023 End: 08-18-2024 C reactive protein [Mass/volume] in Serum or Plasma C-reactive protein Lab Routine Right shoulder pain, unspecified chronicity Expected: 08/18/2023 (Approximate), Expires: 08/18/2024 [facility] Comment on above: Expected: 08/18/2023 (Approximate), Expires: 08/18/2024 Start: 08-18-2023 End: 08-18-2024 CBC W Auto Differential panel - Blood CBC auto differential Lab Routine Right shoulder pain, unspecified chronicity Expected: 08/18/2023 (Approximate), Expires: 08/18/2024 [facility] Work Phone: Comment on above: Expected: 08/18/2023 (Approximate), Expires: 08/18/2024 Start: 08-18-2023 End: 08-18-2024 Erythrocyte sedimentation rate Sedimentation rate, automated Lab Routine Right shoulder pain, unspecified chronicity Expected: 08/18/2023 (Approximate), Expires: 08/18/2024 [facility] Comment on above: Expected: 08/18/2023 (Approximate), Expires: 08/18/2024 Start: 08-18-2023 End: 08-18-2024 Interleukin-6 Interleukin-6 Lab Routine Right shoulder pain, unspecified chronicity Expected: 08/18/2023 (Approximate), Expires: 08/18/2024 [facility] Comment on above: Expected: 08/18/2023 (Approximate), Expires: 08/18/2024 Immunizations Immunization Date Immunization Notes Care Provider Angélica kwon 03-22-2012 tetanus and diphther ia toxoids, adsorbed, preservative free, for adult use (5 Lf of tetanus toxoid and 2 Lf of diphtheria toxoid) John Ashby Other [facility] Payers Date Payer Category Payer [facility] [id number] 2021 Unknown [id number] 2020 Medicare MEDICARE MEDICAR E PART B [id number] 2020-[place] [address] Medicare [id number] 2017 Unknown [id number] 1960 Unknown [id number] 2.16.840.1.307182.3.579.2. 647 1960 Unknown [id number] 2.16.840.1.973145.3.579.2. 647 1960 Unknown [id number] 2.16.840.1.612737.3.579.2. 593 1960 Unknown [id number] 2.16.840.1.747923.3.579.2. 593 1960 Unknown [id number] 2.16.840.1.206088.3.579.2. 593 1960 Unknown [id number] 2.16.840.1.775364.3.579.2. 593 1960 Unknown [id number] 2.16.840.1.201261.3.579.2. 593 1960 Unknown [id number] 2.16.840.1.372033.3.579.2. 593 1960 Unknown [id number] 2.16.840.1.315070.3.579.2. 593 1960 Unknown [id number] 2.16.840.1.926451.3.579.2. 593 1960 Unknown [id number] 2.16.840.1.641350.3.579.2. 593 1960 Unknown [id number] 2.16.840.1.762518.3.579.2. 593 1960 Unknown [id number] 2.16.840.1.628972.3.579.2. 593 1960 Unknown [id number] 2.16.840.1.141242.3.579.2. 593 1960 Unknown [id number] 2.16.840.1.571040.3.579.2. 593 1960 Unknown [id number] 2.16.840.1.115307.3.579.2. 593 1960 Unknown [id number] 2.16.840.1.491814.3.579.2. 593 1960 Unknown [id number] 2.16.840.1.487710.3.579.2. 593 1960 Unknown [id number] 2.16.840.1.515842.3.579.2. 593 1960 Unknown [id number] 2.16.840.1.776252.3.579.2. 727 1960 Unknown [id number] 2.16.840.1.042489.3.579.2. 727 1960 Unknown [id number] 2.16.840.1.161641.3.579.2. 727 1960 Unknown [id number] 2.16.840.1.415910.3.579.2. 1259 1960 Unknown [id number] 2.16.840.1.085785.3.579.2. 9 1960 Unknown [id number] 2.16.840.1.125139.3.579.2. 9 1960 Unknown [id number] 2.16.840.1.072177.3.579.2. 9 1960 Unknown [id number] 2.16.840.1.170939.3.579.2. 1258 1960 Unknown [id number] 2.16.840.1.999595.3.579.2. 1258 1960 Unknown [id number] 2.16.840.1.919673.3.579.2. 9 1960 Unknown [id number] 2.16.840.1.296919.3.579.2. 9 1960 Unknown [id number] 2.16.840.1.697897.3.579.2. 9 1960 Unknown [id number] 2.16.840.1.828383.3.579.2. 1258 1960 Unknown [id number] 2.16.840.1.201342.3.579.2. 9 1959 Medicare [id number] 1959 Self-pay 1959 Unknown [id number] 1959 Unknown [id number] Social History Date Type Detail Facility Unknown if ever smoked [facility] Other Start: 07-21-2023 End: 08-18-2023 Sex Assigned At [facility] Tobacco smoking status No Smokin g Status Entered [facility] Start: 07-06-2018 End: 05-24-2023 Tobacco smoking status TXIS Ex-smoker [facility] End: 07-11-1990 History of [...] Start: 1960 Sex Assigned At Female F [facility] Medical Equipment Procedure Code Equipment Code Equipment [...] Assessment Result Facility 03-24-2023 Functional Status No [facility] Clinical Notes 10-22-2021 to 11-04-2023 Kathi Neumann - 08/18/2023 3:45 PM EST Note Date & Type Note Facility 11-04-2023 Note [place] [facility] - [facility] Subjective Radha Zaidi is a 63 [...] In the past she was admitted to [facility] with pneumonia and empyema, underwent chest tube, [...] mouth if needed., Disp: , Rfl: HYDROcodone-acetaminophen ([place]) 5-325 mg tablet, TAKE 1 TABLET BY [...] HDL 74. Imagin (more content not included)... 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 She states her hand has improved. She points to the anterior aspect of the shoulder as the location of her discomfort. SUBJECTIVE: MEDICATIONS: Current Outpatient Medications Medication Instructions aspirin 81 MG EC tablet 1 tablet, Oral, Daily buPROPion XL (Wellbutrin XL) 300 MG 24 hr tablet citalopram (CeleXA) 10 MG tablet HYDROcodone-acetaminophen ([place]) 5-325 MG tablet TAKE 1 TABLET BY [...] Jordan Yuan D.O. documented in this encounter [facility] 08-17-2023 Evaluation note Encounter Date Diagnosis Assessment [...] Symptoms tolerable, continue medical treatment f/u Rheumatology [facility] Other 12-19-2023 Evaluation note* Encounter Date Diagnosis [...] Jun, Immunosuppressed sta tus (ICD-10 - D84.9) [facility] Other 09-28-2023 Evaluation + Plan noteExtracted from: [...] Basic PRE Author:Hill Rai DO Date:04/06/23 Plan [place] [employer] (ASA) physical status classification: Class II. Anesthetic Preoperative Plan: Anesthesia General. Regional Interscalene block. [facility]09-28-2023 NotePatient: RADHA ZAIDI Age: 62 years [...] 15 mg, 1 tab(s), Oral, Daily, 0 Refill(s)[facility]:Result Comment: Electronically Signed By: Jordan Yuan DO\.br\Date and Time Signed: 04/07/23 07:42 [id number] Hospital Discharge instructions Patient Education 04/07/2023 07:41:33 Iris Yuan - Shoulder Replacement (Custom) [place], [place] [facility] DISCHARGE INSTRUCTIONS: SHOULDER REPLACEMENT [...] persistent vomiting. Jordan Yuan, DO [facility] [address] [place] [address] Reviewed: Follow Up Care 03/09/2023 13:56:15 With:Jordan Yuan Address: [address] [place] [address] Business (1) When:04/19/2023 14:15:00 With:JOHN ASHBY Address: [address] [place], [place] [phone]- Business (1) When: Unknown [facility]09-26-2023 Note [id number] 03-26-2023 Evaluation note* Encounter Date Diagnosis Assessment Notes Treatment Notes Treatment Clinical Notes Mar, Major depressive disorder, single episode, 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 Suggested referral to [employer]in [employer] Supervisor [facility] Other 05-02-2023 Evaluation note* Encounter Date Diagnosis [...] a normal BMI. Monitor BP while taking HBCSex [facility] Other 03-30-2023 NoteCONSULTATION PROCEDURE DATE: 10/07/2022 PROCEDURE: [...] at least 80% reduction of pain symptoms.[facility] [id number] NoteCONSULTATION CONSULTATION DATE: 10/07/2022 ADDENDUM: On examination of the right shoulder, the patient did have a positive right sided full can test, a positive Neida's test, Apley's test and cross body test. All four positive on examination date 10/07/2022.[facility] [id number] NoteCONSULTATION CONSULTATION DATE: 10/07/2022 TO: John Ashby [...] activity modification, use of Zanaflex, Lyrica and [place]. RECOMMENDATIONS: I recommend proceeding with a right [...] right shoulder without contrast and physical therapy.[facility] [id number] Evaluation note* Encounter Date Diagnosis Assessment Notes Treatment Notes Treatment Clinical Notes Aug, Anemia (ICD-10 - D64.9) [facility] Other 01-16-2023 Evaluation note* Encounter Date Diagnosis [...] Healthy diet, exercise w/o change in treatment [employer] Other [id number] NoteCONSULTATION PROCEDURE DATE: 07/09/2022 PREOPERATIVE DIAGNOSIS: Right [...] will be followed up in the office.[facility] [id number] NoteCONSULTATION CONSULTATION DATE: 07/09/2022 HISTORY OF PRESENT [...] possible increase in dose. She also takes [place] 5/325 t.i.d. and Zanaflex 4 mg three [...] three months' time, unless otherwise indicated. [facility] [id number] NoteCONSULTATION CONSULTATION DATE: 05/20/2022 HISTORY OF PRESENT [...] medications include Celexa, Lyrica 50 mg b.i.d., [place] 5/325 t.i.d. and Zanaflex. Patient is having [...] level of C3-4. We will refill her Rock Hill at 5/325 t.i.d. Supportive home measures were discussed such as heat and a menthol heat rub, as well as vitamin compliance. The patient agrees to move forward with the plan, will be followed up in the clinic thereafter.[facility] [id number] NoteCONSULTATION PROCEDURE DATE: 02/17/2022 PRE AND POSTOPERATIVE [...] will be followed up in the clinic.[facility] [id number] NotePROCEDURE: XR SHOULDER RT 2V or > COMPARISON: None. HISTORY: Pain of right shoulder joint FINDINGS: BONES:No acute fracture or dislocation. Minimal degenerative changes. Cervical fusion hardware SOFT TISSUES:Negative. No visible soft tissue swelling. EFFUSION:None visible. OTHER: Negative. IMPRESSION: No acute abnormality Electronically authenticated by: VANDANA COLLINS Date: 2022-02-16 19:11[facility] [id number] NoteCONSULTATION CONSULTATION DATE: 02/02/2022 CHIEF COMPLAINT: Right [...] aggravates the pain. The patient currently takes [place] 5/325 t.i.d., wellbutrin 150 mg, Lyrica 50 [...] point tenderness along the right bicipital tendon. Target Man strength is maintained. IMPRESSION: Current working diagnosis [...] like to proceed. CC: John Ashby D.O.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 Cold weather and bending bother her as well. Medications include Lyrica 75 mg t.i.d., which she has not been taking for the past two months; Celexa, [place] 5/325 t.i.d., Zanaflex and RINVOQ. She feels that her pain is managed well with her [place], but is concerned about the neuropathic pain [...] in need of a refill for her [place] today, which we will give 5/325 t.i.d. [...] in three months' time unless otherwise indicated. [facility] Signed and Approved by: JACQUIE OLIVAS . 11/12/2021 16:27:00[facility] Future Appointments Appointment Date:04/06/2023 09:30:00 AM Scheduled Provider: Location:[facility] App[facility] Type[facility] [employer] Other Evaluation note* Diagnosis Right shoulder pain, unspecified chronicity- Primary documented in this encounter [facility] Diagnosis Onset Date Resolution Status Hypertension acute Overweight acute PSVT (paroxysmal supraventricular tachycardia) acute [facility] Work Phone: History general Narrative - Reported* [...] Surgical History ORIF, proximal fibula Surgical History C 2011 Surgical History Lumbar fusion Surgical History ACDF C4-6 05/30 Hospitalization History See Above [facility] Other Hiszpsw general Narrative - Reported* Type Description Date [...] Surgical History ORIF, proximal fibula Surgical History LHC 2011 Surgical History Lumbar fusion Surgical History ACDF C4-6 05/30 Surgical History Right reverse total shoulder ar throplasty 03/2023 Hospitalization History See Above [facility] Other Hospital course Narrative No data available for this section [facility] Dis[facility] instructions No data available for this section [facility] No data available for this section [facility] Summary Purpose Family History Relationship Condition Age at Onset Recorded Date/T roshni brother Malignant neoplasm Unknown father Diabetes mellitus Unknown Malignant neoplasm Unknown Not Specified Malignant neoplasm Unknown Diabetes mellitus Unknown natural son Heart disease Unknown sister Heart disease Unknown Advance Directives Advance Directive Response Recorded Date/ Time Advance Directives No April 24, 2018 1:59pm Chief Complaint and Reason for Visit Chief Complaint Amb Documentation Amb Documentation Amb Documentation Check Up Reason for Visit Hypertension Overweight PSVT (paroxysmal supraventricular tachycardia) Chief Complaint 3 Month Check up Reason for Visit Hypertension Overweight PSVT (paroxysmal supraventricular tachycardia) Additional Source Comments INFORMATION SOURCE (unrecogn ized section and content) DATE CREATED AUTHOR 12/29/2017 [facility] DATE CREATED AUTHOR AUTHOR'S ORGANIZ ATION 08/29/2018 [facility] DATE CREATED AUTHOR AUTHOR'S ORGANIZ ATION 05/13/2020 [facility] DATE CREATED AUTHOR AUTHOR'S ORGANIZ ATION 10/15/2022 [facility] DATE CREATED AUTHOR AUTHOR'S ORGANIZ ATION 09/10/2023 [facility] DATE CREATED AUTHOR AUTHOR'S ORGANIZ ATION 11/07/2023 [facility] DATE CREATED AUTHOR AUTHOR'S ORGANIZ ATION 11/17/2023 [facility] EPIC REASON FOR VISIT (unrecogniz ed section and content) Reason Comments Follow-up R rev TSA 04/06/23 Patient Care team informatio n (unrecognized section and content) Team Status: Active Member Role Status Dates John Ashby DO Primary Care Provider Active Team Status: Inactive Member Role Status Dates John Ashby DO Primary Care Provide r, Attending Provider Active Start: December 28, 2023 End: December 28, 2023 [place] Relationship Specialty Start Date End Date John Ashby MD [address] [place] [id number] PCP - General Internal Medicine 12/23/22 [place] Relationship Specialty Start Date End Date John Ashby MD [address] [place] [id number] PCP - General Internal Medicine 12/23/22 Team Status: Active Member Role Status Dates John Ashby DO Primary Care Provider Active Team Status: Active Member Role Status Dates John Ashby DO Primary Care Provide r, Attending Provider Active Start: August 30, 2023 Team Status: Active Member Role Status Dates John Ashby DO Primary Care Provider Active Start: September 02, 2023 SHERWIN Quiroga Attending Provider Active St art: September 02, 2023 Team Status: Active Member Role Status Dates John Ashby DO Primary Care Provider Active Start: September 05, 2023 SHERWIN Quiroga Attending Provider Active St art: September 05, 2023 Team Status: Inactive Member Role Status Dates John Ashby DO Primary Care Provide r, Attending Provider Active Start: September 28, 2023 End: September 28, 2023 Team Status: Inactive Member Role Status Dates John Ashby DO Primary Care Provide r, Attending Provider Active Start: December 28, 2023 End: December 28, 2023 Goals (unrecognized section and content) [...] BE BASED ON THE PRIMARY CLINICAL RECORDS. [facility]. provides no warranty or guarantee of the accuracy or completeness of information in this document.
--- NOTE | 2024-01-01 07:28 | XR_ITS ---
The [address] [address] Patient Name: ALEXANDER ZAIDI MRN: [id number] date: 1960 Sex: F Assigned Patient Location: ER Current Patient Location: Accession/Order Number: [id number] Exam Date: 01/01/2024 07:50 Report Date: 01/01/2024 08:58 At the request of: HERACLIO HOUGH Procedure: XR ankle RT min 3V EXAM: XR ankle RT min 3V INDICATION: fall. COMPARISON: None. TECHNIQUE: Right ankle, 3 views FINDINGS: No acute fracture or dislocation. Intact ankle mortise. Lateral and anterior ankle soft tissue swelling. XR/XR ankle RT min 3V IMPRESSION: No acute osseous abnormality of the right ankle. Electronically authenticated by: MARK GERMAIN Date: 01/01/2024 08:58
--- NOTE | 2024-01-01 07:28 | ED.LOWEXI1 ---
HPI HPI - Extremity Injury (Lower) General Chief Complaint: Extremity Injury, Lower Stated Complaint: lower extremity injury/ fall Time Seen by Provider: 01/01/24 07:28 Source: patient and family Mode of arrival: Wheelchair Limitations: no limitations History of Present Illness HPI Narrative: This patient is here for evaluation of right ankle pain. She fell on her way to the bathroom this morning. She is here with her . She is using crutches because it is painful to bear weight. She has not had previous injury to her ankle or surgery. She has no pain in her knee or her hip or her upper extremities. She is she has been having lightheaded spells for 25 years and that is what she believes happened today. She has been worked up for this extensively by Dr. Mcdaniels and they have not found any specific etiology according to patient's history. At this time she does not have any chest pain palpitation shortness of breath confusion diplopia dysarthria dysphagia or any neurological symptoms. Her vital signs are stable. Related Data Home Medications ?Medication ?Instructions ?Recorded ?Confirmed bupropion HCl 150 mg tablet,12 hr 150 mg PO DAILY 12/15/22 12/15/22 sustained-release (Wellbutrin SR) calcium PO .qd 12/15/22 citalopram 20 mg tablet (Celexa) 20 mg PO DAILY 12/15/22 12/15/22 hydrocodone 5 mg-acetaminophen 325 1 tab PO TID PRN pain 12/15/22 12/15/22 mg tablet leflunomide 10 mg tablet (Arava) 10 mg PO DAILY 12/15/22 12/15/22 lisinopril 5 mg tablet 5 mg PO DAILY 12/15/22 12/15/22 metoprolol succinate 25 mg 25 mg PO DAILY 12/15/22 12/15/22 tablet,extended release 24 hr (Toprol XL) pregabalin 150 mg capsule (Lyrica) 150 mg PO BID 12/15/22 12/15/22 tizanidine 4 mg capsule (Zanaflex) 4 mg PO TID PRN muscle spasticity 12/15/22 12/15/22 upadacitinib 15 mg tablet,extended 15 mg PO DAILY 12/15/22 12/15/22 release 24 hr (Rinvoq) Previous Rx's ?Medication ?Instructions ?Recorded naloxone 4 mg/actuation nasal 4 mg intranasal Q3M PRN opioid 03/16/23 spray (Narcan) overdose #2 ea oxycodone-acetaminophen 5 mg-325 1 tab PO TID PRN pain #63 tabs 03/16/23 mg tablet (Percocet) oxycodone-acetaminophen 5 mg-325 1 tab PO TID PRN pain #63 tabs 03/16/23 mg tablet (Percocet) pregabalin 150 mg capsule 150 mg PO BID #180 caps 03/31/23 hydrocodone 5 mg-acetaminophen 325 1 tab PO TID PRN pain #90 tabs 06/30/23 mg tablet hydrocodone 5 mg-acetaminophen 325 1 tab PO TID PRN pain #90 tabs 07/25/23 mg tablet pregabalin 150 mg capsule (Lyrica) 150 mg PO BID #180 caps 07/25/23 hydrocodone 5 mg-acetaminophen 325 1 tab PO TID PRN pain #90 tabs 08/30/23 mg tablet hydrocodone 5 mg-acetaminophen 325 1 tab PO TID PRN pain #90 tabs 09/27/23 mg tablet hydrocodone 5 mg-acetaminophen 325 1 tab PO TID PRN pain #90 tabs 10/25/23 mg tablet hydrocodone 5 mg-acetaminophen 325 1 tab PO TID PRN pain #90 tabs 11/24/23 mg tablet tizanidine 4 mg tablet (Zanaflex) See Rx Instructions .Route 11/24/23 .COMPLEX PRN muscle spasticity #360 tabs Allergies Allergy/AdvReac Type Severity Reaction Status Date / Time No Known Drug Allergies Allergy Verified 12/15/22 09:27 Opioid HPI Opioid Management Most Recent Pain and Opioid Data: Last Pain Scale 7 01/01/24 07:27 Exam Narrative Exam Narrative: Well-hydrated well-nourished female she is pleasant no confusion GCS is 15 no head or neck trauma or injury. Her pulse is regular and her vital signs are noted. Moving to her lower extremity there is soft tissue swelling over the lateral malleolus. There is no pain or discomfort near the knee or the hip area. X-rays are pending Constitutional Vital Signs, click to edit/add: Last Vital Signs Temp 98 F 01/01/24 07:20 Pulse 85 01/01/24 07:20 Resp 16 01/01/24 07:20 BP 101/72 01/01/24 07:20 Pulse Ox 99 01/01/24 07:20 O2 Del Method Room Air 01/01/24 07:20 Course Vital Signs Vital signs: Vital Signs Temperature 98 F 01/01/24 07:20 Pulse Rate 85 01/01/24 07:20 Respiratory Rate 16 01/01/24 07:20 Blood Pressure 101/72 01/01/24 07:20 Pulse Oximetry 99 01/01/24 07:20 Oxygen Delivery Method Room Air 01/01/24 07:20 Temperature 98 F 01/01/24 07:20 Pulse Rate 85 01/01/24 07:20 Respiratory Rate 16 01/01/24 07:20 Blood Pressure 101/72 01/01/24 07:20 Pulse Oximetry 99 01/01/24 07:20 Oxygen Delivery Method Room Air 01/01/24 07:20 MDM - Extremity Injury (Lower) MDM Narrative Medical decision making narrative: My preliminary review of the x-ray shows no evidence of fracture. This represents a grade 2 ankle sprain. She will be placed in an Aircast crutches ice rest elevation and following up with her primary care doctor or local orthopedist Discharge Plan Discharge Stand Alone Forms: Portal Instructions Chief Complaint: Extremity Injury, Lower Clinical Impression: High ankle sprain of right lower extremity Patient Disposition: Home, Self-Care Time of Disposition Decision: 08:11 Prescriptions / Home Meds: No Action hydrocodone-acetaminophen 5-325 mg tablet 1 tab PO TID PRN (Reason: pain) Qty: 90 0RF Rx Instructions: MUST LAST 30 DAYS pregabalin [Lyrica] 150 mg capsule 150 mg PO BID Qty: 180 0RF hydrocodone-acetaminophen 5-325 mg tablet 1 tab PO TID PRN (Reason: pain) Qty: 90 0RF leflunomide [Arava] 10 mg tablet 10 mg PO DAILY citalopram [Celexa] 20 mg tablet 20 mg PO DAILY lisinopril 5 mg tablet 5 mg PO DAILY pregabalin [Lyrica] 150 mg capsule 150 mg PO BID Rinvoq 15 mg tablet extended release 24 hr 15 mg PO DAILY bupropion HCl [Wellbutrin SR] 150 mg tablet sustained-release 12 hr 150 mg PO DAILY tizanidine [Zanaflex] 4 mg capsule 4 mg PO TID PRN (Reason: muscle spasticity) calcium PO .qd hydrocodone-acetaminophen 5-325 mg tablet 1 tab PO TID PRN (Reason: pain) metoprolol succinate [Toprol XL] 25 mg tablet extended release 24 hr 25 mg PO DAILY oxycodone-acetaminophen [Percocet] 5-325 mg tablet 1 tab PO TID PRN (Reason: pain) Qty: 63 0RF oxycodone-acetaminophen [Percocet] 5-325 mg tablet 1 tab PO TID PRN (Reason: pain) Qty: 63 0RF naloxone [Narcan] 4 mg/actuation spray,non-aerosol 4 mg intranasal Q3M PRN (Reason: opioid overdose) Qty: 2 0RF Rx Instructions: spray 1 dose into ONE nostril; alternate nostrils w each dose until help arrives pregabalin 150 mg capsule 150 mg PO BID Qty: 180 0RF hydrocodone-acetaminophen 5-325 mg tablet 1 tab PO TID PRN (Reason: pain) Qty: 90 0RF hydrocodone-acetaminophen 5-325 mg tablet 1 tab PO TID PRN (Reason: pain) Qty: 90 0RF hydrocodone-acetaminophen 5-325 mg tablet 1 tab PO TID PRN (Reason: pain) Qty: 90 0RF hydrocodone-acetaminophen 5-325 mg tablet 1 tab PO TID PRN (Reason: pain) Qty: 90 0RF tizanidine [Zanaflex] 4 mg tablet See Rx Instructions .ROUTE .COMPLEX PRN (Reason: muscle spasticity) Qty: 360 0RF Rx Instructions: take one tab each morning and 3 tabs at bedtime daily Print Language: Chinese Additional Instructions: Ice rest nonweightbearing for 48 hours. Follow-up with orthopedist or your primary care doctor Referrals: John Mcdaniels DO [Primary Care Provider] - 1 week
[2024-01-01] MEDS: IBUPROFEN 600 MG TABLET PO (08:26)
== END 2024-01-01 08:38 | disposition home or self-care (01) ==
PROVIDERS: Emergency Provider Emergency Medicine Emergency Medical Services; PCP Internal Medicine
DX: S93.401A Sprain of unspecified ligament of right ankle, initial encounter (principal); W19.XXXA Unspecified fall, initial encounter
CPT/HCPCS: 73610; 99283

== ENCOUNTER 2024-01-24 15:04 | Outpatient (OUT) | payer BC, MEDICARE, SELFPAY ==
--- NOTE | 2024-01-24 | CONS_ITS ---
PROCEDURE DATE: 01/24/2024 TO: Dr. Mcdaniels CHIEF COMPLAINT: Includes left shoulder pain. PREOPERATIVE DIAGNOSIS: Pain secondary to rotator cuff strain. POSTOPERATIVE DIAGNOSIS: Pain secondary to rotator cuff strain. EXAM: On examination, patient has severe pain with left shoulder extension, internal rotation and adduction. She had a positive left sided empty can sign SOLUTION USED FOR INJECTION: 2 mL of 2% lidocaine, 2 mL of 0.25% Marcaine and 20 mg of Kenalog, total of 5 mL, and 3 mL used for the injection. IMMEDIATE COMPLICATION: None. PROCEDURE: After informed consent was obtained from the patient, placed in the sitting position. Skin overlying the area was prepped with alcohol. 25 gauge 1 ?? needle was inserted over the area of the left suprascapular nerve. Needle tip advanced until there was mild paresthesia. Needle tip was redirected. When the paresthesia completed resolved, we injected 3 mL of solution. No indication of intravascular or intraneural or intrapleural needle tip placement. No evidence of post procedure pneumothorax was noted. Patient reports a marked reduction of pain symptoms and improved range of motion of her left shoulder and a negative empty can sign. [facility] CENTERMike
--- OUTSIDE RECORDS SUMMARY | 2024-01-24 15:28 | XMS_ITS | CCD ---
Author Organization [facility] CliniSyct Care Team Providers Care Skiff Operator Name Role Phone BASIM, BARRY H. Unavailable Unavailable BASIM, BARRY H. Unavailable Unavailable BALL, JOHN E Unavailable Unavailable BASIM, BARRY H. Unavailable Unavailable BALL, JOHN E Unavailable Unavailable EBRAHEIM, MARYURI Attending Unavailable EBRAHEIM, MARYURI Admitting Unavailable BALL, JOHN Referring Unavailable BALL, JOHN Primary Care Unavailable EBRAHEIM, MARYURI Surgeon Unavailable [place] Procedure Practitioner Unavailab le [place] Procedure Practitioner Unavailab TASH Chery Surgeon Unavailable [...] Unavailable SYMONE, DR LOPEZ Primary Care Unavailable FLOREZ, DR [...] Date of Onset Reaction(s) Facility (1 source) 70933,[id number]; Translations: [Unknown] Propensity to adverse reactions (disorder) 2 [facility] Repository (18 sources) Cephalexin Drug Allergy Unknown [employer] Other (7 sources) patient allergy list reviewed by nurse or physicia Propensity to adverse reactions 4 Comment:Done [employer] Other Medications Current Medications Medication Drug Class(es) Dates Sig (Normalized) Sig (Original) acetaminophen 325 mg / HYDROcodone bitartrate 5 mg oral tablet (3 sources) Opioid Agonist Start: 06-30-2023 take 1 tablet by mouth three times daily as needed HYDROcodone-aceta minophen ([place]) 5-325 MG tablet TAKE 1 TABLET BY MOUTH 3 TIMES A DAY NEEDED FOR PAIN*MUS LAST 30 DAYS 0 06/30/2023 Active acetaminophen 325 mg / oxyCODONE hydrochloride 5 mg oral tablet (5 sources) Opioid Agonist Start: 04-06-2023 Percocet 5 mg-325 mg oral tablet See Instructions, 40 tab(s), Refill(s) 0, 1-2 tab(s) Oral q4hr, [facility]/pharmacy #[id number], 160, cm, 03/25/23 6:16:00 EDT, [...] pain, # 60 cap(s), Refills(s) 0, Pharmacy: [facility]/pharmacy #[id number], 160, cm, 03/25/23 6:16:00 EDT, Height/Length Dosing, 73.5, kg, 03/25/23 6:16:00 EDT, Weight Dosing Start Date: 04/06/23 Status: Ordered cephalexin 500 mg oral capsule (1 source) Cephalosporin Antibacterial Start: 04-06-2023 End: 04-13-2023 take 1 capsule by mouth every eight hours Keflex 500 mg Cap 500 mg = 1 cap(s), Oral, q8hr, X 7 day(s), # 21 cap(s), Refills(s) 0, Pharmacy: [facility]/pharmacy #[id number], 160, cm, 03/25/23 6:16:00 EDT, [...] constipation, # 20 cap(s), Refills(s) 0, Pharmacy: [facility]/pharmacy #[id number], 160, cm, 03/25/23 6:16:00 EDT, [...] 2023 2:54pm take 1 capsule by mo [facility] every six hours tiZANidine HCl 4 MG [...] Start: 06-28-2023 take 1 capsule by mo [facility] every twelve hours Doxycycline Hyclate 100 MG [...] monitoring] Episodic Other aftercare (1 source) Other usp (current) drug therapy; Translations: [OTH MANAGER DOMESTIC CURRENT DRUG THERAPY] Onset: 09-17-2022 Episodic Other [...] Range Facility Office Visiton 11-04-2023 Follow-up visit [id number] Radha Zaidi 1960 F Date Provider Department Center 11/04/2023 CAROLINA VALENTE BEAR Lu [facility] Family History Family history unknown: Yes Level of Service:41474 [place] OFFICE/OUTPATIENT ESTABLISHED MOD MDM 30 MIN Reason for Visit and Comments: Follow-up [012630] - 2 year Patient has been taking metoprolol 1 tablet QD Normal [facility] CT Upper Extremity w/o Contr ast [...] MD Transcribed by: DANISHA Technologist: ARNULFO Shah [facility] Lab Miscellaneous-LCon Lab Miscellaneous COMMENT Invalid Interpretation Code [facility] Comment on above: Result Comment: Test Ordered: [id number] Interleukin-6, Serum Interleukin-6, Serum <2.5 pg/mL Reference [...] endotracheal intubation or mechanical ventilation. Performed at: [address] [id number] PhD Saturnino Morse Performed By: #### 1 [id number] ####[facility] [address] [place] [address] CBC w/ Auto Diffon 4 Basophil Absolute 0.0 E9/L Normal 0.0-0.2 [facility] Comment on above: Performed By: #### 2 519642, 5040960, [id number] #### [facility] Laboratory [address] [place] [address] Basophils/100 WBC (Bld) 0.4 % Normal 0.0-2.0 [facility] Comment on above: Performed By: #### 2 184714, 5334818, 40206692 #### [facility] [address] [place] [address] Eos Absolute 0.0 E9/L Normal 0.0-0.5 [facility] Comment on above: Performed By: #### 2 986662, 2565090, 36589062 #### [facility] Laboratory [address] [place] [address] Eosinophils/100 WBC (Bld) 0.2 % Normal 0.0-8.0 [facility] Comment on above: Performed By: #### 2 525279, 3955639, 06230105 #### [facility] [address] [place] [address] Erythrocyte distribution width (RBC) [Ratio] 14.3 % High 10.9-14.2 [facility] Comment on above: Performed By: #### 2 134604, 7052220, 55505785 #### [facility] [address] [place] [address] Hematocrit (Bld) [Volume fraction] 40.0 % Normal 34.0-46.0 [facility] Comment on above: Performed By: #### 2 470709, 9101494, 45356490 #### [facility] [address] [place] [address] Hemoglobin (Bld) [Mass/Vol] 12.7 g/dL Normal 12.0-16.0 [facility] Comment on above: Performed By: #### 2 075566, 0999655, 96032240 #### [facility] [address] [place] [address] Lymph Absolute 0.9 E9/L Low 1.0-4.0 [facility] Comment on above: Performed By: #### 2 014740, 2615418, 56656751 #### [facility] [address] [place] [address] Lymphocytes/100 WBC (Bld) 25.2 % Normal 14.0-50.0 [facility] Comment on above: Performed By: #### 2 492248, 9148697, 96423994 #### [facility] [address] [place] [address] MCH (RBC) [Entitic mass] 30.6 pg Normal 27.0-34.0 [facility] Comment on above: Performed By: #### 2 872475, 2382028, 02037585 #### [facility] [address] [place] [address] MCHC (RBC) [Mass/Vol] 31.7 g/dL Normal 31.4-36.0 [facility] Comment on above: Performed By: #### 2 851072, 8992085, 14893720 #### [facility] [address] [place] [address] MCV (RBC) [Entitic vol] 96.5 fL Normal 80.0-100.0 [facility] Comment on above: Performed By: #### 2 307067, 4264387, 58829289 #### [facility] [address] [place] [address] Cataño Absolute 0.3 E9/L Normal 0.2-1.0 [facility] Comment on above: Performed By: #### 2 377272, 1343872, 16382573 #### [facility] [address] [place] [address] Monocytes/100 WBC (Bld) 7.3 % Normal 4.0-14.0 [facility] Comment on above: Performed By: #### 2 974495, 2288013, 10710964 #### [facility] [address] [place] [address] Neutro Absolute 2.3 E9/L Normal 2.0-7.5 [facility] Comment on above: Performed By: #### 2 362519, 6038701, 88701289 #### [facility] [address] [place] [address] Neutro Auto 66.9 % Normal 36.0-75.0 [facility] Comment on above: Performed By: #### 2 662757, 4034800, 51483016 #### [facility] [address] [place] [address] Platelet 257.0 E9/L Normal 150.0-500.0 [facility] Comment on above: Performed By: #### 2 657298, 3503917, 17162087 #### [facility] [address] [address] Platelet mean volume (Bld) [Entitic vol] 7.4 fL Normal 6.4-10.8 [facility] Comment on above: Performed By: #### 2 452985, 4050038, 84729719 #### [facility] [address] [place] [address] RBC 4.1 E12/L Low 4.3-5.9 [facility] Comment on above: Performed By: #### 2 746474, 2025453, 46242684 #### [facility] [address] [place] [address] WBC 3.4 E9/L Low 4.0-11.0 [facility] Comment on above: Performed By: #### 2 230525, 0153138, 94953212 #### [facility] [address] [place] [address] CHEMISTRYOrdered By: SYSTEM SYSTEM on 09-06-2023 CRP mg/dL Normal <=1.9mg/dL Remisol Chem CRPon 09-06-2023 CRP [Mass/Vol] mg/L Normal <=1.9 [facility] Comment on above: Performed By: #### 2 194784, 8508208, 54395511 #### [facility] [address] [place] [address] Consent for Treatmenton 08-12 Consent for Treatment [id number] .00TIFF Normal [facility] HEMATOLOGYOrdered By: SYSTEM SYSTEM on 09-06-2023 Basophil [...] Normal 80.0 - 100.0 fL Remisol Heme Cataño Absolute 0.3 E9/L Normal 0.2 - 1.0 [...] 14 mm/h Normal 0 - 34 mm/hr [facility] HemeAutoSS Lab Miscellaneous-LCon 09-06 Test Code [id number] Invalid Interpretation Code [facility] Comment on above: Performed By: #### 1 [id number] ####[facility] [address] [place] [address] Test Name interleukin 6 Invalid Interpretation Code [facility] Comment on above: Performed By: #### 1 [id number] ####[facility] [address] [place] [address] Physician Orderon 09-06-2023 Physician Order [id number]#1 .00TIFF Normal [facility] Reference Laboratory Testing Ordered By: Jojo Gonsales on 09-06-2023 Test Code 476274 1 Invalid Interpretation Code [facility] SendOuts Test Name interleukin 6 Invalid Interpretation Code [facility] SendOutsSS Sed Rate Automatedon 024 ESR (Bld) [Velocity] 14 mm/h Normal 0-34 [facility] Comment on above: Performed By: #### 2 175553, 0421594, 97621065 #### [facility] [address] [place] [address] Physician Orderon 08-31-2023 Physician Order [id number]#1 .00TIFF Normal [facility] Basophils Auto (Bld) [#/Vol] on 08-30-2023 Basophils (Bld) [#/Vol] 0.0 10 3/uL 0.0-0.1 [facility] Basophils/100 WBC Auto (Bld) on 08-30-2023 Basophils/100 WBC (Bld) 0.8 % 0.2-2.0 [facility] Cholesterol in LDL Calc [Mas s/Vol]on 08-30-2023 Cholesterol in LDL [Mass/Vol] 152.0 mg/dL [facility] Comment on above: <100 mg/dl SLPEIZH21 0-129 mg/dl NEAR OR ABOVE JATFPRP268-224 mg/dl BORDERLINE OIFR009-233 mg/dl HIGH>190 mg/dl VERY HIGH Cholesterol in VLDL Calc [Ma ss/Vol]on 08-30-2023 Cholesterol in VLDL [Mass/Vol] 20.2 mg/dL [facility] Eosinophils/100 WBC Auto (Bl d)on 08-30-2023 Eosinophils/100 WBC (Bld) 4.2 % 0.9-7.0 [facility] Erythrocyte distribution wid th Auto (RBC) [Ratio]on 08-30-2023 Erythrocyte distribution width (RBC) [Ratio] 13.4 % 11.0-15.0 [facility] Estimated glomerular filtrat ion rate (GFR) non- Americanon 08-30-2023 GFR/1.73 sq M.predicted among non-blacks MDRD (S/P/Bld) [Vol rate/Area] 59 mL/min/{1.73_m2} >=60 [facility] Globulin Calc (S) [Mass/Vol] on 08-30-2023 Globulin (S) [Mass/Vol] 3.4 g/dL [facility] Hematocrit Auto (Bld) [Volum e fraction]on 08-30-2023 Hematocrit (Bld) [Volume fraction] 39.5 % 36.0-48.0 [facility] Hemoglobin [Mass/volume] in Bloodon 08-30-2023 Hemoglobin (Bld) [Mass/Vol] 12.5 g/dL 12.0-16.0 [facility] Laboratory - Chemistry and C hemistry - challengeon 08-30-2023 Albumin [Mass/Vol] 3.7 g/dL 3.4-5.0 [facility] ALP [Catalytic activity/Vol] 45 U/L 46-116 [facility] ALT [Catalytic activity/Vol] 23 U/L 14-59 [facility] AST [Catalytic activity/Vol] 21 U/L 15-37 [facility] Bilirubin [Mass/Vol] 0.4 mg/dL 0.2-1.0 [facility] Calcium [Mass/Vol] 9.0 mg/dL 8.5-10.1 [facility] Chloride [Moles/Vol] 106 mmol/L 98-107 [facility] Cholesterol [Mass/Vol] 246 mg/dL <=200 [facility] Cholesterol in HDL [Mass/Vol] 74 mg/dL 40-60 [facility] Comment on above: > or =60 mg/dl - LOW CARDIOVASCULAR RISK<40 mg/dl - HIGH CARDIOVASCULAR RISK CO2 [Moles/Vol] 25.5 mmol/L 21.0-32.0 [facility] Creatinine [Mass/Vol] 0.96 mg/dL 0.55-1.02 [facility] GFR/1.73 sq M.predicted MDRD (S/P/Bld) [Vol rate/Area] mL/min/{1.73_m2} >=60 [facility] Glucose [Mass/Vol] 86 mg/dL 74-106 [facility] Potassium [Moles/Vol] 3.8 mmol/L 3.5-5.1 [facility] Protein [Mass/Vol] 7.1 g/dL 6.4-8.2 [facility] Sodium [Moles/Vol] 142 mmol/L 136-145 [facility] Triglyceride [Mass/Vol] 101 mg/dL <=150 [facility] TSH Qn 1.531 m[IU]/L 0.358-3.740 [facility] Urea nitrogen [Mass/Vol] 20.0 mg/dL 7.0-18.0 [facility] Urea nitrogen/Creatinine [Mass ratio] 20.8 mg/mg [facility] Laboratory - Hematology and Cell countson 08-30-2023 ESR (Bld) [Velocity] 16 mm/h <=30 [facility] Immature granulocytes/100 WBC (Bld) 0.3 % 0.0-0.5 [facility] Leukocytes [#/volume] correc fito for nucleated erythrocytes in Blood by Automated counon 08-30-2023 WBC corrected for nucl RBC Auto (Bld) [#/Vol] 3.8 10 3/uL 4.0-11.0 [facility] Lymphocytes Auto (Bld) [#/Vo l]on 08-30-2023 Lymphocytes (Bld) [#/Vol] 1.7 10 3/uL 1.2-3.8 [facility] Lymphocytes/100 WBC Auto (Bl d)on 08-30-2023 Lymphocytes/100 WBC (Bld) 44.8 % 20.5-60.0 [facility] MCH Auto (RBC) [Entitic mass ]on 08-30-2023 MCH (RBC) [Entitic mass] 31.1 pg 26.7-34.0 [facility] MCHC Auto (RBC) [Mass/Vol]on 08-30-2023 MCHC (RBC) [Mass/Vol] 31.6 g/dL 29.9-35.2 [facility] MCV Auto (RBC) [Entitic vol] on 08-30-2023 MCV (RBC) [Entitic vol] 98.3 fL 81.0-99.0 [facility] Monocytes Auto (Bld) [#/Vol] on 08-30-2023 Monocytes (Bld) [#/Vol] 0.5 10 3/uL 0.3-0.8 [facility] Monocytes/100 WBC Auto (Bld) on 08-30-2023 Monocytes/100 WBC (Bld) 14.1 % 1.7-12.0 [facility] Neutrophils Auto (Bld) [#/Vo l]on 08-30-2023 Neutrophils (Bld) [#/Vol] 1.4 10 3/uL 1.4-6.5 [facility] Neutrophils/100 WBC Auto (Bl d)on 08-30-2023 Neutrophils/100 WBC (Bld) 35.8 % 43.0-75.0 [facility] No Panel Informationon 08-30 Eosinophils # (Auto) 0.2 10 3/uL 0.0-0.7 [facility] Immature Granulocyte # (Auto) 0.01 10 3/uL 0.00-0.03 [facility] Platelet mean volume Auto (B ld) [Entitic vol]on 08-30-2023 Platelet mean volume (Bld) [Entitic vol] 9.1 fL 9.5-13.5 [facility] Platelets Auto (Bld) [#/Vol] on 08-30-2023 Platelets (Bld) [#/Vol] 181 10 3/uL 150-450 [facility] RBC Auto (Bld) [#/Vol]on RBC (Bld) [#/Vol] 4.02 10 6/uL 4.20-5.40 [facility] Serum or plasma albumin/glob ulin mass ratioon 08-30-2023 Albumin/Globulin [Mass ratio] 1.1 {ratio} [facility] Serum or plasma anion gap de terminationon 08-30-2023 Anion gap [Moles/Vol] 14.3 mmol/L [facility] Serum or plasma total choles terol/high density lipoprotein (HDL) cholesterol mass albina 08-30-2023 Cholesterol.total/Cho lesterol in HDL [Mass ratio] 3.3 {ratio} [facility] Comment on above: 3.3 - 4.4 LOW [...] No obvious fractures at the coracoid process. [facility] Opti-Source XR Shoulder - right 2 Viewso n 08-18-2023 Radiology Study observation (narrative) [facility] IntraOperative Documentson 1 IntraOperative Documents [id number]# 1.00CD:127 Normal [facility] Auto Diffon 04-07-2023 Basophils/100 WBC (Bld) 0.2 % Normal 0.0-2.0 [facility] Comment on above: Order Comment: Order Added by Discern Expert. Performed By: #### 2 188360, 4577347, 0996516, 6424740, 27449964, 8785017 #### [facility] [address] [place] [address] Basophils/Leukocytes Auto (Bld) [Pure # fraction] 0.0 E9/L Normal 0.0-0.2 [facility] Comment on above: Order Comment: Order Added by Discern Expert. Performed By: #### 2 719768, 7510552, 2957070, 8675183, 24179946, 2883832 #### [facility] [address] [place] [address] Eosinophils/100 WBC (Bld) 0.0 % Normal 0.0-8.0 [facility] Comment on above: Order Comment: Order Added by Discern Expert. Performed By: #### 2 701062, 8559878, 4637151, 4433714, 69935970, 8965639 #### [facility] [address] [place] [address] Eosinophils/Leukocyte s Auto (Bld) [Pure # fraction] 0.0 E9/L Normal 0.0-0.5 [facility] Comment on above: Order Comment: Order Added by Discern Expert. Performed By: #### 2 934157, 3595692, 7128370, 4762413, 59036472, 4362454 #### [facility] [address] [place] [address] Lymphocytes/100 WBC (Bld) 7.9 % Low 14.0-50.0 [facility] Comment on above: Order Comment: Order Added by Discern Expert. Performed By: #### 2 216088, 4902500, 8157261, 8843336, 11270123, 8972162 #### [facility] [address] [place] [address] Lymphocytes/Leukocyte s Auto (Bld) [Pure # fraction] 0.8 E9/L Low 1.0-4.0 [facility] Comment on above: Order Comment: Order Added by Discern Expert. Performed By: #### 2 554403, 6855444, 5741135, 7390354, 87800796, 8768386 #### [facility] [address] [place] [address] Monocytes/100 WBC (Bld) 14.0 % Normal 4.0-14.0 [facility] Comment on above: Order Comment: Order Added by Discern Expert. Performed By: #### 2 357676, 7933572, 0076644, 5719653, 15925467, 9757023 #### [facility] [address] [place] [address] Monocytes/Leukocytes Auto (Bld) [Pure # fraction] 1.3 E9/L High 0.2-1.0 [facility] Comment on above: Order Comment: Order Added by Discern Expert. Performed By: #### 2 328540, 9284582, 3040989, 0494243, 88825338, 2100012 #### [facility] [address] [place] [address] Neutrophils/100 WBC (Bld) 77.9 % High 36.0-75.0 [facility] Comment on above: Order Comment: Order Added by Discern Expert. Performed By: #### 2 640872, 1167588, 2302771, 9205448, 47379319, 1409381 #### [facility] [address] [place] [address] Neutrophils/Leukocyte s Auto (Bld) [Pure # fraction] 7.5 E9/L Normal 2.0-7.5 [facility] Comment on above: Order Comment: Order Added by Discern Expert. Performed By: #### 2 022690, 8693833, 9800401, 2411507, 23249016, 9493242 #### [facility] [address] [place] [address] BUNon 04-07-2023 Urea nitrogen [Mass/Vol] 20 mg/dL Normal 5-21 [facility] Comment on above: Performed By: #### 2 199055, 0109881, 5639787, 6731989, 37322452, 0156033 #### [facility] [address] [id number] CBC w/ Auto Diffon 3 Erythrocyte distribution width (RBC) [Ratio] 14.6 % High 10.9-14.2 [facility] Comment on above: Performed By: #### 2 136634, 9593451, 8005232, 1646990, 38435294, 0883640 #### [facility] [address] [place] [address] Hematocrit (Bld) [Volume fraction] 29.7 % Low 34.0-46.0 [facility] Comment on above: Performed By: #### 2 345204, 3948285, 2645915, 5964533, 35355610, 5633832 #### [facility] [address] [address]60[address] Hemoglobin (Bld) [Mass/Vol] 10.0 g/dL Low 12.0-16.0 [facility] Comment on above: Performed By: #### 2 973752, 5093611, 5029769, 0180566, 97302180, 2142545 #### [facility] [address] [place] [address] MCH (RBC) [Entitic mass] 32.5 pg Normal 27.0-34.0 [facility] Comment on above: Performed By: #### 2 086469, 3763462, 5376088, 0477198, 01566983, 8712090 #### [facility] [address] [place] [address] MCHC (RBC) [Mass/Vol] 33.6 g/dL Normal 31.4-36.0 [facility] Comment on above: Performed By: #### 2 698966, 1728248, 9229368, 3216874, 64049264, 8674789 #### [facility] [address] [place] [address] MCV (RBC) [Entitic vol] 96.7 fL Normal 80.0-100.0 [facility] Comment on above: Performed By: #### 2 036969, 9238134, 4588409, 2400870, 61866519, 6125548 #### [facility] [address] [place] [address] Platelet mean volume (Bld) [Entitic vol] 7.1 fL Normal 6.4-10.8 [facility] Comment on above: Performed By: #### 2 897232, 0666730, 3840820, 0047452, 91306120, 6114967 #### [facility] [address] [address]60[address] Platelets (Bld) [#/Vol] 215.0 E9/L Normal 150.0-500.0 [facility] Comment on above: Performed By: #### 2 634797, 6943017, 1680239, 3045547, 04892022, 1187890 #### [facility] [address] [place], [place] [address] RBC (Bld) [#/Vol] 3.1 E12/L Low 4.3-5.9 [facility] Comment on above: Performed By: #### 2 931878, 5506116, 9139147, 6768672, 45467127, 6595518 #### [facility] [address] [place], [place] [address] WBC corrected for nucl RBC Auto (Bld) [#/Vol] 9.6 E9/L Normal 4.0-11.0 [facility] Comment on above: Performed By: #### 2 433038, 6984441, 9673692, 6949878, 09666410, 9603702 #### [facility] [address] [place] [address] CHEMISTRYOrdered By: SYSTEM SYSTEM on 04-07-2023 Anion gap [Moles/Vol] 6 mmol/L Normal 6 - 16 mEq/L [facility] Remisol Chloride [Moles/Vol] 118 mmol/L High 101 - 1 11 mmol/L [facility] Remisol CO2 [Moles/Vol] 23 mmol/L Normal 21 - 31 mmol/L [facility] Remisol Creatinine [Mass/Vol] 0.9 mg/dL Normal 0.5 - 1.3 mg/dL [facility] Remisol GFR/1.73 sq M.predicted among non-blacks MDRD (S/P/Bld) [Vol rate/Area] 72 mL/min/1.73 m2 Normal >=59mL/min/1 .73 m2 [facility] Chem S Comment on above: Interpretive Data: C hronic kidney disease could be indicated at eGFR's of less than 60 mL/min/1.73m2. Kidney failure is indicated at less than 15 mL/min/1.73m2. Potassium [Moles/Vol] 4.0 mmol/L Normal 3.5 - 5.3 mmol/L [facility] Remisol Sodium [Moles/Vol] 143 mmol/L Normal 135 - 145 mmol/L [facility] Remisol Urea nitrogen [Mass/Vol] 20 mg/dL Normal 5 - 21 mg/dL [facility] Remisol Consent for Anesthesiaon Consent for Anesthesia [id number] .00CD:127 Normal [facility] Creatinineon 04-07-2023 Creatinine [Mass/Vol] 0.9 mg/dL Normal 0.5-1.3 [facility] Comment on above: Performed By: #### 2 463120, 5384829, 2111747, 9300033, 45412190, 9084751 ####[facility] [address] [place] [address] Discharge Instructionson Discharge Instructions [id number] 1.00CD:127 Normal [facility] Discharge Note-Nursingon Discharge Note-Nursing RADHA ZAIDI :1960 [...] Pending Diagnostic Test Results None Pharmacy Information [facility] Follow Up Appointments after Discharge Follow Up with Jordan Yuan When: Where: [address] [place] [address]- Business (1) Follow Up with JOHN ASHBY When: In 0 days Where: [address] [place] [address]- Business (1) Medications What How Much When Instructions Next Dose Changed acetaminophen-oxycodo ne (Percocet 5 mg-325 mg oral tablet) See instructions 1-2 tab(s) Oral q4hr Pickup at [facility]/pharmacy #[id number] Next dose due after 10am Unchanged buPROPion (Wellbutrin XL 300 mg/ 24 hours Tab-ER) 1 Tablets By Mouth 2 times a day 04/07/23 @ 9pm Unchanged celecoxib (CeleBREX 100 mg Cap) 1 Capsules By Mouth 2 times a day as needed for for pain [facility] [id number]/07/23 @ 9pm Unchanged cephalexin (Keflex 500 mg Cap) 1 Capsules By Mouth Every 8 hours Duration: 7 Days Pickup at [facility]177 04/07/23 @ 2pm and bedtime Unchanged docusate (Colace 100 mg Cap) 1 Capsules By Mouth 2 times a day as needed for for constipation Pickup at [facility]pharmacy #6177 04/07/23 @ 9pm Unchanged leflunomide [...] Every day 04/08/23 @ 9am Pharmacy Information [facility]/pharmacy #6177: [address], [place] [id number] [phone] Test Results CBC BMP WBC: 9.6 E9/L [...] Lateralized/ 24, Shoulder Implant 04/06/2023 Univers revers Bronson humeral Stem Size 9, Shoulder Implant 04/06/2023 UniversRevers SutureCap, 36 neutral, shoulder Implant 04/06/2023 universrevers Humeral Insert, small, 36, +6, Shoulder (more content not included)... Normal [facility] HEMATOLOGYOrdered By: SYSTEM SYSTEM on 04-07-2023 Basophils/100 [...] 9.6 E9/L Normal 4.0 - 11.0 E9/L [facility] HernandoAutoSS Inpatient Clinical Summaryon 04-07-2023 Inpatient Clinical Summary [address] [address] Clinical Summary Person Information: Name: RADHA ZAIDI Age: 62 Years : 1960 Sex: Female PCP: JOHN ASHBY DO Marital Status: Phone: [phone] Race: White Ethnicity: Non- or Language: Icelandic Visit Id: Visit Reason: OA RIGHT SHOULDER Speciality: Acuity: Enc Type: Observation Med Service: Medical Arrival: 04/06/2023 06:09:55 Discharge: Dispo Type: Address: [address] [place] [address] [place] [id number] Provider Notes: Patient: RADHA ZAIDI Age: 62 [...] Follow up: With: Address: When: [place] [address] Business (1) 04/19/2023 2:15 PM With: Address: When: JOHN ASHBY [address] [place], [place] [address] Business (1) Patient Education Information: Levy Yuan. - Shoulder Replacement (Custom) [facility] Inpatient Patient Summaryon 04-07-2023 Inpatient Patient Summary [address] [address] Patient Discharge Instructions PERSON INFORMATION [...] up: With: Address: When: [place] [address] Business (1) 04/19/2023 2:15 PM With: Address: When: JOHN SYMONE [address] [facility] [place] [id number] Business (1) In the event that this [...] That Have Changed [facility], [address], [place] [id number], [phone] START: acetaminophen-oxycodo ne (Percocet 5 mg-325 mg oral tablet) 1-2 tab(s) Oral q4hr. Refills: 0. Last Dose: ____Next Dose: ____ STOP: acetaminophen-oxycodo ne (Percocet 5 mg-325 mg oral tablet) 1 Tablets By Mouth 3 times a day. Medications to Continue with No Changes [facility], [address], [place] [id number], [phone] celecoxib (CeleBREX 100 mg Cap) 1 Capsules [...] ELSIE Lu (419) (more content not included)... [facility] IntraOperative Documentson 0 04-07-2023 IntraOperative Documents [id number]#1 .00CD:127 [facility] IntraOperative Documents [id number]#1 .00CD:127 Normal [facility] Lyteson 04-07-2023 Anion gap [Moles/Vol] 6 mmol/L Normal 6-16 [facility] Comment on above: Performed By: #### 2 350667, 4381458, 6634952, 1061100, 39549663, 4737570 ####[facility] [address] [place] [address] Chloride [Moles/Vol] 118 mmol/L High 101-111 [facility] Comment on above: Performed By: #### 2 940016, 0243929, 4454028, 1568278, 44388237, 4169352 ####[facility] [address] [place] [address] CO2 [Moles/Vol] 23 mmol/L Normal 21-31 [facility] Comment on above: Performed By: #### 2 320615, 9048869, 7177957, 9192979, 13273824, 3028214 ####[facility] [address] [place] [address] Potassium [Moles/Vol] 4.0 mmol/L Normal 3.5-5.3 [facility] Comment on above: Performed By: #### 2 911293, 9564176, 2114489, 8907899, 06604513, 2149742 ####[facility] [address] [place] [address] Sodium [Moles/Vol] 143 mmol/L Normal 135-145 [facility] Comment on above: Performed By: #### 2 289122, 4021185, 7898475, 1559792, 67516332, 4893244 ####[facility] [address] [place] [address] Main OR Intraoperative Recor don 04-07-2023 Main OR Intraoperative Record IntraOp Document Type FT Summary Primary Physician: Jordan Yuan DO Finalized Date/Time: 04/07/23 14:30:58 Pt. Name: RADHA ZAIDI Gerardo/Sex: 1960 Female Med Rec #: [id number] Physician: Jordan Yuan DO Financial #: [id number] Pt. Type: A Room/Bed: [facility]/01 Admit/Disch: 04/06/23 06:09:55 - 04/07/23 09:30:00 Institution: [...] A Krupp RN, Dennis Curry Role Performed SWITCH OPERATOR Surgeon - Primary Branch Service Representative - Primary Time In 04/06/23 09:32:00 04/06/23 10:05:00 04/06/23 09:32:00 Time Out 04/06/23 11:36:00 04/06/23 11:16:00 04/06/23 11:36:00 Procedure SHOULDER TOTAL SHOULDER TOTAL SHOULDER TOTAL ARTHROPLASTY(Right) ARTHROPLASTY(Right) ARTHROPLASTY(Right) Comments , anesthesia supervisor felting Last Modified By: Sharmaine Muñoz CST RN, Dennis Downs RN 04/07/23 14:28:51 04/06/23 11:35:47 04/06/23 11:35:47 Entry 4 Entry 5 Entry 6 Case Attendee Valerie BUMPER MACHINE OPERATOR, Jena Taylor CST, John Role Performed Scrub - Primary Scrub - Primary BUMPER MACHINE OPERATOR/SA Time In 04/06/23 09:32:00 04/06/23 09:32:00 04/06/23 [...] Yuan DO, Krupp RN, Dennis Curry, Valerie BUMPER MACHINE OPERATOR, Johnathan Hernandez Sydney A, Wilhelm CST, Alfredo [...] traffic control (more content not included)... Normal [facility] Main OR PACU I Recordon 03-12 Main OR PACU I Record PACU Phase I Docum ent Type FT Summary Primary Physician: Jordan Yuan DO Finalized Date/Time: 04/07/23 08:05:19 Pt. Name: RADHA ZAIDI/Sex: 1960 Female Med Rec #: [id number] Physician: Jordan Yuan DO Financial #: [id number] Pt. Type: O Room/Bed: N305/ Admit/Disch: 04/06/23 [...] 08:04 Cate Gonsales RN 04/07/23 08:05 Normal [facility] Patient Education - Texton 0 04-07-2023 Patient Education - Text [place], [place] [facility] DISCHARGE INSTRUCTIONS: SHOULDER REPLACEMENT [...] or the development of persistent vomiting. Jordan Yuna, [facility] [address] [place] [address] Reviewed: Normal [facility] Preoperative Documentson Preoperative Documents [id number]#1 .00CD:127 Normal [facility] Progress Note-Physicianon Progress Note-Physician Patient: RADHA ZAIDI [...] Pressure 63 mmHg SpO2 94 % Normal [facility] Comment on above: Result Comment: Elec tronically Signed By: Jordan Yuan DO\.br\Date and Time Signed: 04/07/23 07:40 EDT eGFRon 04-07-2023 GFR/1.73 sq M.predicted among non-blacks MDRD (S/P/Bld) [Vol rate/Area] 72 mL/min/1.73 m2 Normal >=59 [facility] Comment on above: Order Comment: Order added by Discern Expert. Result Comment: Per Diem Clerk dina kidney disease could be indicated at eGFR's of less than 60 mL/min/1.73m2. Kidney failure is indicated at less than 15 mL/min/1.73m2. Performed By: #### 2 552429, 4694613, 8330588, 3157353, 85935098, 0228101 ####[facility] [address] [place] [address] ABO/Rhon 04-06-2023 ABO/Rh Positive Invalid Interpretation Code [facility] Comment on above: Performed By: #### 1 4116171, 78040616, 84569843, 8818912 ####[facility] [address] [place] [address] ABO/Rh History Checkon 04-06 ABO/Rh History Check Verified Hx Blood Type Normal [facility] Comment on above: Performed By: #### 1 1791687, 33527355, 62914572, 3341651 ####[facility] [address] [place] [address] ABSCon 04-06-2023 ABSC Gel Interp Negative Normal [facility] Comment on above: Performed By: #### 1 2123195, 20256609, 51759679, 7780082 ####[facility] [address] [place] [address] BLOOD BANKOrdered By: Andra Nunez on 04-06-2023 ABO/Rh Interp Positive Invalid Interpretation Code [facility] BB Subsection ABSC Gel Interp Negative (04/06/23 7:23 AM) Normal [facility] BB Subsection Blood Bank ID#on 04-06-2023 BBID# [id number] Invalid Interpretation Code [facility] Comment on above: Performed By: #### 1 2943888, 25999667, 56160217, 9927134 ####[address] [place] [address] Consent for Treatmenton 03-12 Consent for Treatment [id number]#1 .00CD:127 Normal [facility] H&P Updateon 04-06-2023 H&P Update [id number]#1 .00CD:127 [facility] Insurance Correspondence Off iceon 04-06-2023 Insurance Correspondence Office [id number]# 1.00CD:127 Normal [facility] Main OR Preoperative Recordo n 04-06-2023 Main OR Preoperative Record PreOp Document Type FT Summary Primary Physician: Jordan Yuan DO Finalized Date/Time: 04/06/23 09:32:24 Pt. Name: RADHA ZAIDI/Sex: 1960 Female Med Rec #: [id number] Physician: Jordan Yuan DO Financial #: [id number] Pt. Type: A Room/Bed: Admit/Disch: 04/06/23 06:09:55 [...] By: Dennis Goldman RN 04/06/23 09:32 Normal [facility] Monitor Recordon 04-06-2023 Monitor Record [id number]# 1.00CD:127 Normal [facility] Monitor Record [id number]# 1.00CD:127 Normal [facility] Monitor Record [id number]# 1.00CD:127 Normal [facility] Operative Reporton Operative Report Patient: RADHA ZAIDI Age: 62 years Sex: Female : 1960 Associated Diagnoses: None Author: Jordan Yuan DO DATE OF SURGERY: 04/06/2023 SURGEON: Jordan Yuan D.O. HABILITATION WORKER: Anival Flores CFA PREOPERATIVE DIAGNOSIS: Massive rotator [...] 3. size +6 humeral insert 4. Revers Bronson size 9 stem with 36 (neutral) Suturecup OPERATIVE INDICATIONS: Radha is a 62-year-old nnvlx-vlgw-axxxhbws female who has had persistent right shoulder [...] intraoperative instrumentation were performed with the [employer] Amakem software. PROCEDURE: The correct operative site was [...] The depth-stop (more content not included)... Normal [facility] Comment on above: Result Comment: Elec tronically [...] Using maximal sterile barrier technique per current [facility] guidelines including hand hygeine, Guidance (Ultrasound [...] patient tolerated the procedure as expected. Normal [facility] Comment on above: Result Comment: Elec tronically Signed By: Yanick Rai DO\.br\Date and Time Signed: 04/06/23 08:44 EDT Progress Note-Physicianon Progress Note-Physician Patient: RADHA ZAIDI Age: 62 years Sex: Female : 1960 Associated Diagnoses: None Author: Yanick Rai DO Postoperative Information Postoperative disposition: Postoperative disposition: To PACU. Optimetrix number: Optimetrix number [id number]. Anesthetic utilized: General. Regional: Interscalene Block. Health [...] pain, # 60 cap(s), Refills(s) 0, Pharmacy: [facility] #6177, 160, cm, 03/25/23 6:16:00 EDT, Height/Length Dos (more content not included)... 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 Family History: Primary malignant neoplasm of prostate Father Acute myocardial infarction Mother Procedure history: Cervical laminectomy (1584862457). Amputation of finger (965419842). Removal of lung, Partial (70571). Open reduction and internal fixation of fracture Leg (508372647). Foot surgery (3373244921). Lumbar discectomy (851853094). Social History Social & Psychosocial Habits Alcohol [...] to auscultation. (more content not included)... Normal [facility] Comment on above: Result Comment: Elec tronically [...] mGy = na DAP = na Normal [facility] Consent for Procedure/Surger yon 04-05-2023 Consent for Procedure/Surgery [id number]#1 .00CD:127 Normal [facility] CT Upper Extremity w/o Contr ast Righton [...] DO Transcribed by: DANISHA Technologist: CONSTANTINO Normal [facility] ABO/Rh Retypeon 03-24-2023 ABO/Rh Retype Interp Positive Invalid Interpretation Code [facility] Comment on above: Performed By: #### 1 6084712 ####[facility] [address] [address] BLOOD BANKOrdered By: Andra Longoria on 03-24-2023 ABO/Rh Retype Interp Positive Invalid Interpretation Code [facility] BB Subsection BUNon 03-24-2023 Urea nitrogen [Mass/Vol] 28 mg/dL High 5-21 [facility] Comment on above: Performed By: #### 1 9730325, 1234193, 9880697, 3341581, 2346981, 8615509 ####[facility] [address] [place] [address] CBC w/Indiceson 03-24-2023 Erythrocyte distribution width (RBC) [Ratio] 14.5 % High 10.9-14.2 [facility] Comment on above: Performed By: #### 1 2867986, 7251536, 9525630, 6621056, 0785794, 3689420 ####[facility] [address] [place] [address] Hematocrit (Bld) [Volume fraction] 35.9 % Normal 34.0-46.0 [facility] Comment on above: Performed By: #### 1 8859337, 6733459, 7166041, 7181312, 4651538, 2305008 ####[facility] [address] [place] [address] Hemoglobin (Bld) [Mass/Vol] 11.9 g/dL Low 12.0-16.0 [facility] Comment on above: Performed By: #### 1 1298979, 8577078, 6069049, 8915552, 0562445, 6473915 ####[address] [place] [address] MCH (RBC) [Entitic mass] 32.3 pg Normal 27.0-34.0 [facility] Comment on above: Performed By: #### 1 0096845, 3013479, 7005787, 7356643, 5400265, 2602857 ####[address] [address] MCHC (RBC) [Mass/Vol] 33.1 g/dL Normal 31.4-36.0 [facility] Comment on above: Performed By: #### 1 5466986, 1361424, 3058877, 4477025, 3552065, 9169133 ####[address] [address] MCV (RBC) [Entitic vol] 97.4 fL Normal 80.0-100.0 [facility] Comment on above: Performed By: #### 1 8347395, 7144990, 0758838, 2406982, 8509796, 2479459 ####[address] [address] Platelet mean volume (Bld) [Entitic vol] 7.4 fL Normal 6.4-10.8 [facility] Comment on above: Performed By: #### 1 1330594, 9900215, 9805482, 0310231, 2797473, 7731400 ####[address] [address] Platelets (Bld) [#/Vol] 207.0 E9/L Normal 150.0-500.0 [facility] Comment on above: Performed By: #### 1 3612726, 2035481, 3351482, 5608380, 8592374, 4848187 ####[facility] [address] [place] [address] RBC (Bld) [#/Vol] 3.7 E12/L Low 4.3-5.9 [facility] Comment on above: Performed By: #### 1 9985133, 0855254, 1624334, 5344643, 9366839, 5756408 ####[facility] [address] [place] [address] WBC corrected for nucl RBC Auto (Bld) [#/Vol] 3.5 E9/L Low 4.0-11.0 [facility] Comment on above: Performed By: #### 1 1455208, 7989170, 6495161, 4502154, 2069334, 4755289 ####[facility] [address] [place] [address] CHEMISTRYOrdered By: SYSTEM SYSTEM on 03-24-2023 Anion gap [Moles/Vol] 12 mmol/L Normal 6 - 16 mEq/L [facility] Remisol Chloride [Moles/Vol] 111 mmol/L Normal 101 - 1 11 mmol/L [facility] Remisol CO2 [Moles/Vol] 20 mmol/L Low 21 - 31 mmol/L [facility] Remisol Creatinine [Mass/Vol] 1.2 mg/dL Normal 0.5 - 1.3 mg/dL [facility] Remisol GFR/1.73 sq M.predicted among non-blacks MDRD (S/P/Bld) [Vol rate/Area] 51 mL/min/1.73 m2 Low >=59mL/min/1 .73 m2 [facility] Chem S Glucose [Mass/Vol] 84 mg/dL Normal 55 - 199 mg/dL FT Remisol Potassium [Moles/Vol] 4.2 mmol/L Normal 3.5 - 5.3 mmol/L FT Remisol Sodium [Moles/Vol] 139 mmol/L Normal 135 - 145 mmol/L FT Remisol Urea nitrogen [Mass/Vol] 28 mg/dL High 5 - 21 mg/dL [facility] Remisol Consent for Treatmenton 03-11 Consent for Treatment [id number] .00CD:127 Normal [facility] Creatinineon 03-24-2023 Creatinine [Mass/Vol] 1.2 mg/dL Normal 0.5-1.3 [facility] Comment on above: Performed By: #### 1 1138905, 4125180, 3158848, 6273623, 2760242, 0446866 ####[facility] [address] [place] [address] Glucoseon 03-24-2023 Glucose [Mass/Vol] 84 mg/dL Normal 55-199 [facility] Comment on above: Performed By: #### 1 9769545, 6569894, 0483439, 0166386, 8266057, 5444965 ####[facility] [address] [place] [address] HEMATOLOGYOrdered By: Andra Longoria on 03-24-2023 Erythrocyte [...] 3.5 E9/L Low 4.0 - 11.0 E9/L [facility] HemeAutoSS Lyteson 03-24-2023 Anion gap [Moles/Vol] 12 mmol/L Normal 6-16 [facility] Comment on above: Performed By: #### 1 2227355, 2140895, 5870653, 1737625, 8674483, 6354811 ####[facility] [address] [place] [address] Chloride [Moles/Vol] 111 mmol/L Normal 101-111 [facility] Comment on above: Performed By: #### 1 3935237, 0006307, 4828707, 1629903, 4516418, 0941018 ####[facility] [address] [place] [address] CO2 [Moles/Vol] 20 mmol/L Low 21-31 [facility] Comment on above: Performed By: #### 1 8823433, 7546266, 4819373, 0722019, 7041245, 2042594 ####[facility] [address] [place] [address] Potassium [Moles/Vol] 4.2 mmol/L Normal 3.5-5.3 [facility] Comment on above: Performed By: #### 1 6348755, 2177117, 7947917, 9208550, 2745265, 2761651 ####[facility] [address] [place] [address] Sodium [Moles/Vol] 139 mmol/L Normal 135-145 [facility] Comment on above: Performed By: #### 1 6332148, 7379427, 7956780, 7811980, 5316158, 1883246 ####[facility] [address] [place] [address] UA With Cult Reflexon 2022 Bilirubin Ql (U) Negative Normal Negative [facility] Comment on above: Performed By: #### 1 2159952 #### [facility] [address] [place] [address] Clarity (U) CLEAR Normal Clear [facility] Comment on above: Performed By: #### 1 5450611 #### [facility] [address] [place] [address] Color (U) YELLOW Normal Yellow [facility] Comment on above: Performed By: #### 1 9455502 #### [facility] [address] [place] [address] Epithelial cells.squamous LM.HPF (Urine sed) [#/Area] 0-2 Normal 0-2 [facility] Comment on above: Performed By: #### 1 8009741 #### [facility] [address] [place] [address] Fine Granular Casts LM Ql (Urine sed) 0-3 Normal [facility] Comment on above: Performed By: #### 1 4489821 #### [facility] [address] [place] [address] Glucose Test strip (U) [Mass/Vol] Negative Normal Negative [facility] Comment on above: Performed By: #### 1 9082102 #### [facility] [address] [place] [address] Hemoglobin Ql (U) Negative Normal Negative [facility] Comment on above: Performed By: #### 1 2569439 #### [facility] [address] [place] [address] Ketones (U) [Mass/Vol] Negative Normal Negative [facility] Comment on above: Performed By: #### 1 0141636 #### [facility] [address] [place] [address] [place].plasma/Lithiu m.RBC (Bld) [Mass ratio] 0-3 Normal 0-3 [facility] Comment on above: Performed By: #### 1 9401818 #### [facility] [address] [place] [address] Mucus Ql (Urine sed) TRACE Normal [facility] Comment on above: Performed By: #### 1 0923703 #### [facility] [address] [place] [address] Nitrite Ql (U) Negative Normal Negative [facility] Comment on above: Performed By: #### 1 7414085 #### [facility] [address] [place] [address] pH (U) 6.0 [pH] Invalid Interpretation Code 5.0-9.0 [facility] Comment on above: Performed By: #### 1 1514152 #### [facility] [address] [place] [address] Protein (U) [Mass/Vol] Negative Normal Negative [facility] Comment on above: Performed By: #### 1 1676057 #### [facility] [address] [place] [address] Specific gravity (U) [Rel density] >=1.030 Invalid Interpretation Code 1.005-1.030 [facility] Comment on above: Performed By: #### 1 4642970 #### [facility] [address] [place] [address] Type of Urine collection method Clean Catch Normal [facility] Comment on above: Performed By: #### 1 1449016 #### [facility] [address] [place] [address] Urobilinogen Qn (U) 0.2 {Rajwinder'U}/dL Normal 0.0-1.0 [facility] Comment on above: Performed By: #### 1 4108005 #### [facility] [address] [place] [address] WBC Auto Ql (U) Negative Normal Negative [facility] Comment on above: Performed By: #### 1 0457526 #### [facility] [address] [place] [address] WBC LM.HPF (Urine sed) [#/Area] 0-5 Normal 0-5 [facility] Comment on above: Performed By: #### 1 8296718 #### [facility] [address] [place] [address] URINALYSISOrdered By: Indira calix on 03-24-2023 Bilirubin [...] PM) Normal Negative [facility] UA Auto SS [place].plasma/Lithiu m.RBC (Bld) [Mass ratio] 0-3 /HPF Normal [...] [facility] UA Auto SS Urobilinogen Qn (U) 0.3343786 {Rajwinder'U}/dL Normal 0.0 - 1.0 EU/dL [facility] UA Auto SS WBC Auto Ql (U) Negative (03/24/23 3:05 PM) Normal Negative [facility] UA Auto SS WBC LM.HPF (Urine sed) [#/Area] 0-5 /HPF Normal 0-5/HPF [facility] UA Auto SS XR Chest 2 Viewson [...] mGy = na DAP = na Normal [facility] eGFRon 03-24-2023 GFR/1.73 sq M.predicted among non-blacks MDRD (S/P/Bld) [Vol rate/Area] 51 mL/min/1.73 m2 Low >=59 [facility] Comment on above: Order Comment: Order added by Discern Expert. Result Comment: Per Diem Clerk dina kidney disease could be indicated at eGFR's of less than 60 mL/min/1.73m2. Kidney failure is indicated at less than 15 mL/min/1.73m2. Performed By: #### 1 3792442, 7278684, 1140069, 3122211, 2401065, 0542023 ####[facility] [address] [place] [address] Physician Orderon 03-23-2023 Physician Order [id number]#1. 00CD:127 Normal [facility] XR SHOULDER RT 2V or >on XR [...] VANDANA YUAN Date: 2022-10-07 22:08 Normal [facility] CBC AUTO DIFFon 09-16-2022 BASO # 0.0 103/ul Normal 0.0-0.1 [facility] Comment on above: Performed By: #### C BC ####[facility] [address]mp[address] [place] [address]Dr. Andrade Alvarado Basophils/100 WBC (Bld) 0.5 % Normal 0.2-2.0 [facility] Comment on above: Performed By: #### C BC ####[facility] Unf[address] [place], [place] [address]DrMehreen Alvarado EO # 0.1 103/ul Normal 0.0-0.7 [facility] Comment on above: Performed By: #### C BC ####[facility] Viwpcivqni[address] [place] [address]Dr. Andrade Alvarado Eosinophils/100 WBC (Bld) 2.3 % Normal 0.9-7.0 [facility] Comment on above: Performed By: #### C BC ####[facility] Awcih[address]ax[address] [place], [place] [address]DrMehreen Alvarado Erythrocyte distribution width (RBC) [Ratio] 13.7 % Normal 11.0-15.0 [facility] Comment on above: Performed By: #### C BC ####[facility] Fv[address]udd[address] [place], [place] [address]DrMehreen Alvarado Hematocrit (Bld) [Volume fraction] 32.8 % Critically low 36.0-48.0 [facility] Comment on above: Performed By: #### C BC ####[facility] [address]pfivlevj[address] [place] [address]Dr. Andrade Alvarado Hemoglobin (Bld) [Mass/Vol] 10.9 g/dL Critically low 12.0-16.0 [facility] Comment on above: Performed By: #### C BC ####[facility] [address]jioxgoxvd[address] [place] [address]Dr. Andrade Alvarado IG # 0.02 10e3/ul Normal 0.00-0.03 [facility] Comment on above: Performed By: #### C BC ####[facility] Gwaxwjiulk[address] [place], [place] [address]Dr. Kellengregory Christiano IG % 0.5 % Normal 0.0-0.5 [facility] Comment on above: Performed By: #### C BC ####[facility] Fbdlibyzxr[address] [place], [place] [address]Dr. Andrade Alvarado LYMPH # 1.6 103/ul Normal 1.2-3.8 [facility] Comment on above: Performed By: #### C BC ####[facility] Jzslybisqw[address] [place], [place] [address]Dr. Andrade Alvarado Lymphocytes/100 WBC (Bld) 41.8 % Normal 20.5-60.0 [facility] Comment on above: Performed By: #### C BC ####[facility] Uooevjlyeq[address] [place], [place] [address]Dr. Andrade Alvarado MANUAL DIFF REQ NO Normal [facility] Comment on above: Performed By: #### C BC ####[facility] Edpvhjvffy[address] [place], [place] [address]Dr. Andrade Alvarado MCH (RBC) [Entitic mass] 31.9 pg Normal 26.7-34.0 [facility] Comment on above: Performed By: #### C BC ####[facility] Wizowwjbac9[address] [place], [place] [address]Dr. Andrade Alvarado MCHC (RBC) [Mass/Vol] 33.2 g/dL Normal 29.9-35.2 [facility] Comment on above: Performed By: #### C BC ####[facility] Qdryvbrlja64[address] [place] [address]Dr. Andrade Alvarado MCV (RBC) [Entitic vol] 95.9 fL Normal 81.0-99.0 [facility] Comment on above: Performed By: #### C BC ####[facility] Shodbokouv[address] [place] [address]Dr. Andrade Alvarado MONO # 0.5 103/ul Normal 0.3-0.8 [facility] Comment on above: Performed By: #### C BC ####[facility] Fidwwjtrty36[address] [place] [address]Dr. Andrade Christiano Monocytes/100 WBC (Bld) 13.1 % Critically high 1.7-12.0 [facility] Comment on above: Performed By: #### C BC ####[facility] Fuydytidlc[address] [place], [place] [address]Dr. Andrade Alvarado NEUT # 1.6 103/ul Normal 1.4-6.5 [facility] Comment on above: Performed By: #### C BC ####[facility] Msnwcrpywf[address] [place] [address]Dr. Andrade Alvarado Neutrophils/100 WBC (Bld) 41.8 % Critically low 43.0-75.0 [facility] Comment on above: Performed By: #### C BC ####[facility] Bcj[address]tx[address] [place], [place] [address]Dr. Andrade Christiano Platelet mean volume (Bld) [Entitic vol] 8.8 fL Critically low 9.5-13.5 [facility] Comment on above: Performed By: #### C BC ####[facility] Emrtnngaxg[address] [place], [place] [address]Dr. Andrade Christiano PLT 219 103/ul Normal 150-450 [facility] Comment on above: Performed By: #### C BC ####[facility] Hjjbnnlxmd38[address] [place] [address]Dr. Andrade Christiano RBC 3.42 106/ul Critically low 4.20-5.40 [facility] Comment on above: Performed By: #### C BC ####[facility] Ztcrqiotww[address] [place] [address]Dr. Andrade Alvarado WBC 3.9 103/ul Critically low 4.0-11.0 [facility] Comment on above: Performed By: #### C BC ####[facility] Thx[address]ufcftn[address] [place] [address]Dr. Andrade Alvarado FERRITINon 09-16-2022 Ferritin [Mass/Vol] 292.0 ng/mL Critically high 8.0-252.0 [facility] Comment on above: Performed By: #### F ERR, B12FOL, FETIBC #### [facility] [address] [address] [address] Andrade Alvarado IRON AND TIBCon 09-16-2022 % SATURATION 76.2 % Normal [facility] Comment on above: Performed By: #### F ERR, B12FOL, FETIBC #### [facility] [address] [address] [address] Andrade Alvarado Iron [Mass/Vol] 259.0 ug/dL Critically high 50.0-170.0 [facility] Comment on above: Performed By: #### F ERR, B12FOL, FETIBC #### [facility] [address] [address] [address] Andrade Alvarado TIBC DIRECT 340.0 ug/dL Normal 250.0-450.0 [facility] Comment on above: Performed By: #### F ERR, B12FOL, FETIBC #### [facility] [address] [address] [address] Andrade Alvarado PROF 14(COMP METB)on 023 Albumin [Mass/Vol] 4.0 g/dL Normal 3.4-5.0 [facility] Comment on above: Performed By: #### C MP ####[facility] Fxllkxiyqu[address] [place] [address]Dr. Andrade Alvarado Albumin/Globulin [Mass ratio] 1.3 {ratio} Normal [facility] Comment on above: Performed By: #### C MP ####[facility] Jqonzamoid[address] [place] [address]Dr. Andrade Alvarado ALP [Catalytic activity/Vol] 47 U/L Normal 46-116 [facility] Comment on above: Performed By: #### C MP ####[facility] Iosiaoyxgt2994 [place] [address]Dr. Andrade Alvarado ALT [Catalytic activity/Vol] 23 U/L Normal 14-59 [facility] Comment on above: Performed By: #### C MP ####[facility] Xckqgypeku039[address] [place] [address]Dr. Andrade Alvarado Anion gap [Moles/Vol] 12.1 mmol/L Normal e [facility] Comment on above: Performed By: #### C MP ####[facility] Rrqujjnrcu5[address] [place] [address]Dr. Andrade Alvarado AST [Catalytic activity/Vol] 23 U/L Normal 15-37 [facility] Comment on above: Performed By: #### C MP ####[facility] Vighqeupgn[address] [place], [place] [address]Dr. Andrade Alvarado Bilirubin [Mass/Vol] 0.4 mg/dL Normal 0.2-1.0 [facility] Comment on above: Performed By: #### C MP ####[facility] Cuugxyobfr[address] [place] [address]Dr. Andrade Alvarado Calcium [Mass/Vol] 9.3 mg/dL Normal 8.5-10.1 [facility] Comment on above: Performed By: #### C MP ####[facility] Lxuoyazavd4[address] [place] [address]Dr. Andrade Alvarado Chloride [Moles/Vol] 108 mmol/L Critically high 98-107 [facility] Comment on above: Performed By: #### C MP ####[facility] Qzcvtbyers[address] [place] [address]Dr. Andrade Alvarado CO2 [Moles/Vol] 26.9 mmol/L Normal 21.0-32.0 [facility] Comment on above: Performed By: #### C MP ####[facility] Srcxviohpf65[address] [place] [address]Dr. Andrade Christiano Creatinine [Mass/Vol] 0.87 mg/dL Normal 0.55-1.02 [facility] Comment on above: Performed By: #### C MP ####[facility] Tvdtwywioi35[address] [place] [address]Dr. Andrade Christiano EGFR-AF GREEK >60 Normal >=60 [facility] Comment on above: Performed By: #### C MP ####[facility] Wtwrbxlran6[address] [place] [address]Dr. Andrade Alvarado EGFR-NON AF GREEK >60 Normal >=60 [facility] Comment on above: Performed By: #### C MP ####[facility] Znzcebgejy[address] [place], [place] [address]Dr. Andrade Alvarado Globulin (S) [Mass/Vol] 3.0 g/dL Normal [facility] Comment on above: Performed By: #### C MP ####[facility] Wou[address]ysccm[address] [place], [place] [address]Dr. Andrade Alvarado Glucose [Mass/Vol] 102 mg/dL Normal 74-106 [facility] Comment on above: Performed By: #### C MP ####[facility] Pzspfckaex[address] [place], [place] [address]Dr. Andrade Alvarado Potassium [Moles/Vol] 4.0 mmol/L Normal 3.5-5.1 [facility] Comment on above: Performed By: #### C MP ####[facility] Rkmxzvefwq[address] [place], [place] [address]Dr. Andrade Alvarado Protein [Mass/Vol] 7.0 g/dL Normal 6.4-8.2 [facility] Comment on above: Performed By: #### C MP ####[facility] Aylbqpersw[address] [place], [place] [address]Dr. Andrade Alvarado Sodium [Moles/Vol] 143 mmol/L Normal 136-145 [facility] Comment on above: Performed By: #### C MP ####[facility] Uhbgkaqybh[address] [place], [place] [address]Dr. Andrade Alvarado Urea nitrogen [Mass/Vol] 25.0 mg/dL Critically high 7.0-18.0 [facility] Comment on above: Performed By: #### C MP ####[facility] Gsjmdmjrnb44[address] [place] [address]Dr. Andrade Alvarado Urea nitrogen/Creatinine [Mass ratio] 28.7 mg/mg Normal [facility] Comment on above: Performed By: #### C MP ####[facility] Iqkldtdnwe8[address] [place] [address]Dr. Andrade Alvarado SED RATE WESTERGRENon 2022 SED RATE 11 mm/hr Normal <=30 [facility] Comment on above: Performed By: #### S EDR ####[facility] Prgvleamde[address] [place] [address]DrMehreen Alvarado VIT B12 AND FOLATEon 023 Cobalamin (Vitamin B12) [Mass/Vol] 249.0 pg/mL Normal 193.0-986.0 [facility] Comment on above: Performed By: #### F ERR, B12FOL, FETIBC #### [facility] [address] [address] [address] Andrade Alvarado FOLATE 14.00 ng/mL Normal 8.60-58.90 [facility] Comment on above: Performed By: #### F ERR, B12FOL, FETIBC #### [facility] [address] [address] [address] Andrade Alvarado MAMM SCREEN 3D BRENNA CADon 2022 MG MAMM SCREEN 3D BRENNA CAD Patient: RADHA ZAIDI Exam Date: 2022 : 1960 Gender:F Ordering : DR JOHN ASHBY D.O. Admission #: [id number] Family : Order #: [id number] CLICK HERE TO VIEW EXAM RADIOLOGY REPORT [...] prostate cancer at age 72. LOCATION: [facility] BREAST COMPOSITION: Scattered areas fibroglandular [...] M.D. on 06/09/2022 at 15:30 Normal [facility] CBC AUTO DIFFon 05-20-2022 BASO # 0.0 103/ul Normal 0.0-0.1 [facility] Comment on above: Performed By: #### C BC ####[facility] Vzxumxwrmj[address] [place], [place] [address]DrMehreen Alvarado Basophils/100 WBC (Bld) 1.0 % Normal 0.2-2.0 [facility] Comment on above: Performed By: #### C BC ####[facility] Fugxeoqvyk[address] [place], [place] [address]DrMehreen Alvarado EO # 0.1 103/ul Normal 0.0-0.7 [facility] Comment on above: Performed By: #### C BC ####[facility] Fgkklkuseq[address] [place], [place] [address]DrMehreen Alvarado Eosinophils/100 WBC (Bld) 2.5 % Normal 0.9-7.0 [facility] Comment on above: Performed By: #### C BC ####[facility] Urpafxgfoz[address] [place], [place] [address]DrMehreen Alvarado Erythrocyte distribution width (RBC) [Ratio] 13.0 % Normal 11.0-15.0 [facility] Comment on above: Performed By: #### C BC ####[facility] Xqsqnpzmff[address] [place], [place] [address]DrMehreen Alvarado Hematocrit (Bld) [Volume fraction] 34.9 % Critically low 36.0-48.0 [facility] Comment on above: Performed By: #### C BC ####[facility] Hgudqrfnct36[address] [place] [address]Dr. Andrade Alvarado Hemoglobin (Bld) [Mass/Vol] 11.6 g/dL Critically low 12.0-16.0 [facility] Comment on above: Performed By: #### C BC ####[facility] Vftkxrfzqw[address] [place], [place] [address]Dr. Andrade Alvarado IG # 0.02 10e3/ul Normal 0.00-0.03 [facility] Comment on above: Performed By: #### C BC ####[facility] Emubawldvb[address] [place], [place] [address]Dr. Andrade Alvarado IG % 0.5 % Normal 0.0-0.5 [facility] Comment on above: Performed By: #### C BC ####[facility] Sxkyyrxuev[address] [place], [place] [address]Dr. Andrade Alvarado LYMPH # 1.9 103/ul Normal 1.2-3.8 [facility] Comment on above: Performed By: #### C BC ####[facility] Zvnjizaxon[address] [place], [place] [address]Dr. Kellengregory Alvarado Lymphocytes/100 WBC (Bld) 46.1 % Normal 20.5-60.0 [facility] Comment on above: Performed By: #### C BC ####[facility] Sdqjpemqrv[address] [place], [place] [address]Dr. Andrade Alvarado MANUAL DIFF REQ NO Normal [facility] Comment on above: Performed By: #### C BC ####[facility] Bsfufltpjv8[address] [place], [place] [address]Dr. Andrade Alvarado MCH (RBC) [Entitic mass] 32.3 pg Normal 26.7-34.0 [facility] Comment on above: Performed By: #### C BC ####[facility] Xtcxxthrth4[address] [place], [place] [address]Dr. Andrade Alvarado MCHC (RBC) [Mass/Vol] 33.2 g/dL Normal 29.9-35.2 [facility] Comment on above: Performed By: #### C BC ####[facility] Opbcxgqbco17[address] [place] [address]DrMehreen Andrade Alvarado MCV (RBC) [Entitic vol] 97.2 fL Normal 81.0-99.0 [facility] Comment on above: Performed By: #### C BC ####[facility] Xkymuqwsuo[address] [place], [place] [address]DrMehreen Alvarado MONO # 0.5 103/ul Normal 0.3-0.8 [facility] Comment on above: Performed By: #### C BC ####[facility] Gmujtgdzrf[address] [place], [place] [address]DrMehreen Kellengregory Alvarado Monocytes/100 WBC (Bld) 13.5 % Critically high 1.7-12.0 [facility] Comment on above: Performed By: #### C BC ####[facility] Bzbazqkijb[address] [place], [place] [address]DrMehreen Alvarado NEUT # 1.5 103/ul Normal 1.4-6.5 [facility] Comment on above: Performed By: #### C BC ####[facility] Ollwlgwnrk[address] [place], [place] [address]DrMehreen Alvarado Neutrophils/100 WBC (Bld) 36.4 % Critically low 43.0-75.0 [facility] Comment on above: Performed By: #### C BC ####[facility] Waypoluwjc7[address] [place], [place] [address]DrMehreen Alvarado Platelet mean volume (Bld) [Entitic vol] 8.9 fL Critically low 9.5-13.5 [facility] Comment on above: Performed By: #### C BC ####[facility] Aheibgrebp[address] [place], [place] [address]DrMehreen Alvarado PLT 237 103/ul Normal 150-450 [facility] Comment on above: Performed By: #### C BC ####[facility] Jkxxnfgrrw58[address] [place], [place] [address]DrMehreen Alvarado RBC 3.59 106/ul Critically low 4.20-5.40 [facility] Comment on above: Performed By: #### C BC ####[facility] Tyjbztubxh2[address] [place] [address]Dr. Andrade Alvarado WBC 4.0 103/ul Normal 4.0-11.0 [facility] Comment on above: Performed By: #### C BC ####[facility] Viqzjkjevc26[address] [place] [address]Dr. Andrade Alvarado CRPon 05-20-2022 CRP [Mass/Vol] mg/L Normal <=1.0 [facility] Comment on above: Performed By: #### C MP, CRP, TSH ####[facility] [address]lyvmxbakj[address] [place] [address]Dr. Andrade Alvarado PROF 14(COMP METB)on 022 Albumin [Mass/Vol] 4.2 g/dL Normal 3.4-5.0 [facility] Comment on above: Performed By: #### C MP, CRP, TSH #### [facility] [address] [address] [address] Andrade Alvarado Albumin/Globulin [Mass ratio] 1.3 {ratio} Normal [facility] Comment on above: Performed By: #### C MP, CRP, TSH #### [facility] [address] [address] [address] Andrade Alvarado ALP [Catalytic activity/Vol] 50 U/L Normal 46-116 [facility] Comment on above: Performed By: #### C MP, CRP, TSH #### [facility] [address] [address] [address] Andrade Alvarado ALT [Catalytic activity/Vol] 23 U/L Normal 14-59 [facility] Comment on above: Performed By: #### C MP, CRP, TSH #### [facility] [address] [address] [address] Andrade Alvarado Anion gap [Moles/Vol] 11.3 mmol/L Normal [facility] Comment on above: Performed By: #### C MP, CRP, TSH #### [facility] [address] [address] [address] Andrade Alvarado AST [Catalytic activity/Vol] 23 U/L Normal 15-37 [facility] Comment on above: Performed By: #### C MP, CRP, TSH #### [facility] [address] [address] [address] Andrade Alvarado Bilirubin [Mass/Vol] 0.5 mg/dL Normal 0.2-1.0 [facility] Comment on above: Performed By: #### C MP, CRP, TSH #### [facility] [address] [address] [address] Andrade Alvarado Calcium [Mass/Vol] 9.3 mg/dL Normal 8.5-10.1 [facility] Comment on above: Performed By: #### C MP, CRP, TSH #### [facility] [address] [address] [address] Andrade Alvarado Chloride [Moles/Vol] 104 mmol/L Normal 98-107 [facility] Comment on above: Performed By: #### C MP, CRP, TSH #### [facility] [address] [address] [address] Andrade Alvarado CO2 [Moles/Vol] 27.2 mmol/L Normal 21.0-32.0 [facility] Comment on above: Performed By: #### C MP, CRP, TSH #### [facility] [address] [address] [address] Andrade Alvarado Creatinine [Mass/Vol] 0.99 mg/dL Normal 0.55-1.02 [facility] Comment on above: Performed By: #### C MP, CRP, TSH #### [facility] [address] [address] [address] Andrade Alvarado EGFR-AF GREEK >60 Normal >=60 [facility] Comment on above: Performed By: #### C MP, CRP, TSH #### [facility] [address] [address] [address] Andrade Alvarado EGFR-NON AF GREEK 57 mL/min/1.73m2 Critically low >=60 [facility] Comment on above: Performed By: #### C MP, CRP, TSH #### [facility] [address] [address] [address] Andrade Alvarado Globulin (S) [Mass/Vol] 3.3 g/dL Normal [facility] Comment on above: Performed By: #### C MP, CRP, TSH #### [facility] [address] [address] [address] Andrade Alvarado Glucose [Mass/Vol] 97 mg/dL Normal 74-106 [facility] Comment on above: Performed By: #### C MP, CRP, TSH #### [facility] [address] [place] [address] Dr. Andrade Alvarado Potassium [Moles/Vol] 3.5 mmol/L Normal 3.5-5.1 [facility] Comment on above: Performed By: #### C MP, CRP, TSH #### [facility] [address] [place] [address] Dr. Andrade Alvarado Protein [Mass/Vol] 7.5 g/dL Normal 6.4-8.2 [facility] Comment on above: Performed By: #### C MP, CRP, TSH #### [facility] [address] [place] [address] Dr. Andrade Alvarado Sodium [Moles/Vol] 139 mmol/L Normal 136-145 [facility] Comment on above: Performed By: #### C MP, CRP, TSH #### [facility] [address] [place] [address] Dr. Andrade Alvarado Urea nitrogen [Mass/Vol] 22.0 mg/dL Critically high 7.0-18.0 [facility] Comment on above: Performed By: #### C MP, CRP, TSH #### [facility] [address] [place] [address] Dr. Andrade Alvarado Urea nitrogen/Creatinine [Mass ratio] 22.2 mg/mg Normal [facility] Comment on above: Performed By: #### C MP, CRP, TSH #### [facility] [address] [place] [address] Dr. Andrade Alvarado SED RATE WESTERGRENon 2021 SED RATE 22 mm/hr Normal <=30 [facility] Comment on above: Performed By: #### S EDR ####[facility] [address]fer[address] [place] [address]Dr. Adnrade Alvarado TSHon 05-20-2022 TSH 1.373 uIU/mL Normal 0.358-3.740 [facility] Comment on above: Performed By: #### C MP, CRP, TSH #### [facility] [address] [address] [address] Andrade Alvarado CBC AUTO DIFFon 02-16-2022 BASO # 0.0 103/ul Normal 0.0-0.1 [facility] Comment on above: Performed By: #### C BC ####[facility] [address] [place] [address]DrMehreen Alvarado Basophils/100 WBC (Bld) 0.9 % Normal 0.2-2.0 [facility] Comment on above: Performed By: #### C BC ####[facility] Xjolmxlsib[address] [place] [address]DrMehreen Alvarado EO # 0.1 103/ul Normal 0.0-0.7 [facility] Comment on above: Performed By: #### C BC ####[facility] [address]tdlur[address] [place] [address]Dr. Andrade Alvarado Eosinophils/100 WBC (Bld) 2.3 % Normal 0.9-7.0 [facility] Comment on above: Performed By: #### C BC ####[facility] [address]qfjput[address] [place] [address]DrMehreen Alvarado Erythrocyte distribution width (RBC) [Ratio] 12.6 % Normal 11.0-15.0 [facility] Comment on above: Performed By: #### C BC ####[facility] [address] [place] [address]DrMehreen Alvarado Hematocrit (Bld) [Volume fraction] 37.8 % Normal 36.0-48.0 [facility] Comment on above: Performed By: #### C BC ####[facility] [address] [place] [address]Dr. Andrade Alvarado Hemoglobin (Bld) [Mass/Vol] 12.3 g/dL Normal 12.0-16.0 [facility] Comment on above: Performed By: #### C BC ####[facility] T[address] [place] [address]Dr. Andrade Alvarado IG # 0.02 10e3/ul Normal 0.00-0.03 [facility] Comment on above: Performed By: #### C BC ####[facility] Dsodflowdn[address] [place] [address]Dr. Andrade Alvarado IG % 0.5 % Normal 0.0-0.5 [facility] Comment on above: Performed By: #### C BC ####[facility] [address] [place], [place] [address]Dr. Andrade Alvarado LYMPH # 2.1 103/ul Normal 1.2-3.8 [facility] Comment on above: Performed By: #### C BC ####[facility] [address] [place], [place] [address]Dr. Andrade Alvarado Lymphocytes/100 WBC (Bld) 48.3 % Normal 20.5-60.0 [facility] Comment on above: Performed By: #### C BC ####[facility] [address] [place], [place] [address]Dr. Andrade Alvarado MANUAL DIFF REQ NO Normal [facility] Comment on above: Performed By: #### C BC ####[facility] [address] [place], [place] [address]Dr. Andrade Alvarado MCH (RBC) [Entitic mass] 31.9 pg Normal 26.7-34.0 [facility] Comment on above: Performed By: #### C BC ####[facility] [address] [place], [place] [address]Dr. Andrade Alvarado MCHC (RBC) [Mass/Vol] 32.5 g/dL Normal 29.9-35.2 [facility] Comment on above: Performed By: #### C BC ####[facility] [address]fe[address] [place] [address]Dr. Andrade Alvarado MCV (RBC) [Entitic vol] 97.9 fL Normal 81.0-99.0 [facility] Comment on above: Performed By: #### C BC ####[facility] [address]mq[address]vw[address] [place] [address]Dr. Andrade Alvarado MONO # 0.5 103/ul Normal 0.3-0.8 [facility] Comment on above: Performed By: #### C BC ####[facility] Ckcpcybvuh[address] [place] [address]Dr. Andrade Alvarado Monocytes/100 WBC (Bld) 11.2 % Normal 1.7-12.0 [facility] Comment on above: Performed By: #### C BC ####[facility] Wjylpyuhfb[address] [place] [address]Dr. Andrade Alvarado NEUT # 1.6 103/ul Normal 1.4-6.5 [facility] Comment on above: Performed By: #### C BC ####[facility] L[address]ekj[address] [place] [address]Dr. Andrade Alvarado Neutrophils/100 WBC (Bld) 36.8 % Critically low 43.0-75.0 [facility] Comment on above: Performed By: #### C BC ####[facility] [address] [place] [address]Dr. Andrade Alvarado Platelet mean volume (Bld) [Entitic vol] 9.9 fL Normal 9.5-13.5 [facility] Comment on above: Performed By: #### C BC ####[facility] [address] [place] [address]Dr. Andrade Alvarado PLT 213 103/ul Normal 150-450 [facility] Comment on above: Performed By: #### C BC ####[facility] Lrrwurbwaf[address] [place] [address]Dr. Andrade Alvarado RBC 3.86 106/ul Critically low 4.20-5.40 [facility] Comment on above: Performed By: #### C BC ####[facility] T[address]af[address] [place] [address]Dr. Andrade Alvarado WBC 4.4 103/ul Normal 4.0-11.0 [facility] Comment on above: Performed By: #### C BC ####[facility] [address]qqjyjh[address] [place] [address]Dr. Andrade Alvarado PROF 14(COMP METB)on 022 Albumin [Mass/Vol] 4.2 g/dL Normal 3.4-5.0 [facility] Comment on above: Performed By: #### C MP #### [facility] [address] [address] [address] Andrade Alvarado Albumin/Globulin [Mass ratio] 1.3 {ratio} Normal [facility] Comment on above: Performed By: #### C MP #### [facility] [address] [place] [address] Dr. Andrade Alvarado ALP [Catalytic activity/Vol] 61 U/L Normal 46-116 [facility] Comment on above: Performed By: #### C MP #### [facility] [address] [place] [address] Dr. Andrade Alvarado ALT [Catalytic activity/Vol] 23 U/L Normal 14-59 [facility] Comment on above: Performed By: #### C MP #### [facility] [address] [place] [address] Dr. Andrade Alvarado Anion gap [Moles/Vol] 15.5 mmol/L Normal [facility] Comment on above: Performed By: #### C MP #### [facility] [address] [place] [address] Dr. Andrade Alvarado AST [Catalytic activity/Vol] 20 U/L Normal 15-37 [facility] Comment on above: Performed By: #### C MP #### [facility] [address] [place] [address] Dr. Andrade Alvarado Bilirubin [Mass/Vol] 0.5 mg/dL Normal 0.2-1.0 [facility] Comment on above: Performed By: #### C MP #### [facility] [address] [place] [address] Dr. Andrade Alvarado Calcium [Mass/Vol] 9.1 mg/dL Normal 8.5-10.1 [facility] Comment on above: Performed By: #### C MP #### [facility] [address] [address] [address] Andrade Alvarado Chloride [Moles/Vol] 106 mmol/L Normal 98-107 [facility] Comment on above: Performed By: #### C MP #### [facility] [address] [address] [address] Andrade Alvarado CO2 [Moles/Vol] 25.6 mmol/L Normal 21.0-32.0 [facility] Comment on above: Performed By: #### C MP #### [facility] [address] [place] [address] Dr. Andrade Alvarado Creatinine [Mass/Vol] 0.97 mg/dL Normal 0.55-1.02 [facility] Comment on above: Performed By: #### C MP #### [facility] [address] [place] [address] Dr. Andrade Alvarado EGFR-AF GREEK >60 Normal >=60 [facility] Comment on above: Performed By: #### C MP #### [facility] [address] [place] [address] Dr. Andrade Alvarado EGFR-NON AF GREEK 58 mL/min/1.73m2 Critically low >=60 [facility] Comment on above: Performed By: #### C MP #### [facility] [address] [place] [address] Dr. Andrade Alvarado Globulin (S) [Mass/Vol] 3.2 g/dL Normal [facility] Comment on above: Performed By: #### C MP #### [facility] [address] [address] [address] Andrade Alvarado Glucose [Mass/Vol] 91 mg/dL Normal 74-106 [facility] Comment on above: Performed By: #### C MP #### [facility] [address] [place] [address] Dr. Andrade Alvarado Potassium [Moles/Vol] 4.1 mmol/L Normal 3.5-5.1 [facility] Comment on above: Performed By: #### C MP #### [facility] [address] [address] [address] Andrade Alvarado Protein [Mass/Vol] 7.4 g/dL Normal 6.4-8.2 [facility] Comment on above: Performed By: #### C MP #### [facility] [address] [address] [address] Andrade Alvarado Sodium [Moles/Vol] 143 mmol/L Normal 136-145 [facility] Comment on above: Performed By: #### C MP #### [facility] [address] [address] [address] Andrade Alvarado Urea nitrogen [Mass/Vol] 18.0 mg/dL Normal 7.0-18.0 [facility] Comment on above: Performed By: #### C MP #### [facility] [address] [address] [address] Andrade Alvarado Urea nitrogen/Creatinine [Mass ratio] 18.6 mg/mg Normal [facility] Comment on above: Performed By: #### C MP #### [facility] [address] [place] [address] Dr. Andrade Alvarado SED RATE [facility] 2021 SED RATE 15 mm/hr Normal <=30 [facility] Comment on above: Performed By: #### S EDR #### [facility] [address] [place] [address] Dr. Andrade Alvarado KNEE LEFT 3 [facility] 04-25-2020 KNEE LEFT 3 S [facility] Department of Radiology [address] [place] [id number] Patient Name: RADHA ZAIDI : 1960 Sex: F Age: Race: White Pt. Location: 84 Patient Status: Ordered Date: 04/25/2020 8:25:00 AM Completed Date: 04/25/2020 08:24 AM Requesting Provider: ALEXANDRA MARS Attending Provider: Report Copy To: Signs & Symptoms: S82.832K Oth fx upr and low end l fibula, subs for clos fx w nonunion I10 History: [place] Comments: Evaluate Exam: KNEE LEFT 3 VWS [...] visible. Electronically signed: Eliezer Cam. Transcribed by: [id number], User Resident: Electronically Signed by: ELIEZER CAM @ 04/25/2020 11:44 AM Normal [facility] Comment on above: Order Comment: Evalu ate TIBIA FIBULA LEFTon 03-27-20 20 TIBIA FIBULA LEFT [facility] Department of Radiology [address] [place] [id number] Patient Name: RADHA ZAIDI : 1960 Sex: F Age: Race: White Pt. Location: 84 Patient Status: Ordered Date: 03/27/2020 8:05:00 AM Completed Date: 03/27/2020 08:35 AM Requesting Provider: CHARLI LUKE Attending Provider: Report Copy To: Signs & Symptoms: S82.832A Oth fracture of upper and lower end of left fibula, init I10 History: [place] Comments: , , , Ordering Provider - [...] healing Electronically signed: Crissy Dubon. Transcribed by: [email or web address], User Resident: Electronically Signed by: CRISSY DUBON @ 03/27/2020 09:11 AM Normal [facility] Comment on above: Order Comment: Evalu ate Operative Reporton 0 Operative Report MR#: [id number] S [facility] Pt. Name: Radha Zaidi Room #: [...] were bluntly retracted. We then used a [place] as well as a hemostat to debride [...] Paniagua MD Date Trans: 03/13/2020 02:26 A/bryson YBARRA_JN:[id number] cc: John Ashby D.O. [address] [place] [address], [place] [address] Normal [facility] KNEE LEFT 1 OR 2 Son 03-12 KNEE LEFT 1 OR 2 VWS [facility] Department of Radiology [address] [place] [id number] Patient Name: RADHA ZAIDI : 1960 [...] GRAFT Exam: KNEE LEFT 1 OR 2 [facility] Intraoperative fluoroscopic guidance HISTORY: Fracture fixation. COMPARISON: 02/04/2020 radiographs. IMPRESSION: 1. There are 3 images, total time of 2.6 minutes. 2. Hardware projects over the proximal fibular shaft fracture. Electronically signed: Rahul James. Transcribed by: [email or web address], User Resident: Electronically Signed by: RAHUL JAMES @ 03/12/2020 03:20 PM Normal [facility] Comment on above: Order Comment: Evalu ate POC GLUCOSE LABon 03-12-2020 Glucose [Mass/Vol] 103 mg/dL High 70-100 [facility] Comment on above: Performed By: #### 8 5499 ####[facility] *MRSA/MSSA DNA NASALon 03-08 *MRSA/MSSA DNA NASAL Clinical Report: (D ) Specimen: NASAL SWAB Collected: 03/08/2020 14:02 Status: Final Last Updated: 03/09/2020 09:30 MSSA DNA (Final) Negative MRSA DNA (Final) Negative Normal [facility] Comment on above: Performed By: #### 3 1595 ####[facility] *SARS-CoV-2 COVID-19on 03-08 [id number] Not Detected Normal Not Detected [facility] Comment on above: Order Comment: The A ptima SARS-CoV-2 assay is a nucleic acid amplification test intended for the qualitative detection of RNA from SARS-CoV-2 isolated and purified from nasopharyngeal (CAGE CLERK),oropharyngeal (OP), nasal swab, sputum, and bronchoalveolar lavage (BAL) specimens from patients with signs and symptoms of infection who are suspected of COVID-19. Results are for the identification of SARS-CoV-2 RNA. The SARS-CoV-2 RNA is generally detectable during the acute phase of infection. The Aptima SARS-CoV-2 Assay on the [employer] and [employer] Fusion system is intended for use by laboratory personnel specifically instructed and trained in the operation of the [place] and [employer] Fusion system. The Aptima SARS-CoV-2 assay is [...] information. Performed By: #### 3 1792 #### [facility] [address] APTTon 03-08-2020 aPTT Coag (Bld) [Time] 26.9 s Normal 25.0-35.0 [facility] Comment on above: Result Comment: ALL [...] THIS PURPOSE. Performed By: #### 5 6101, [address] ####[facility] BASIC METABOLIC PANELon 02-09 Calcium [Mass/Vol] 9.7 mg/dL Normal 8.6-10.3 [facility] Comment on above: Performed By: #### 0 0071 #### [facility] [address] Chloride [Moles/Vol] 103 mmol/L Normal 98-107 [facility] Comment on above: Performed By: #### 0 0071 #### [facility] [address] CO2 [Moles/Vol] 31 mmol/L Normal 21-31 [facility] Comment on above: Performed By: #### 0 0071 #### [facility] [address] Creatinine [Mass/Vol] 0.87 mg/dL Normal 0.60-1.20 [facility] Comment on above: Performed By: #### 0 0071 #### [facility] [address] GFR/1.73 sq M predicted among blacks MDRD (S/P/Bld) [Vol rate/Area] mL/min/{1.73_m2} Normal >60 [facility] Comment on above: Performed By: #### 0 0071 #### [facility] [address] [place] [address], [facility] GFR/1.73 sq M predicted among non-blacks MDRD (S/P/Bld) [Vol rate/Area] mL/min/{1.73_m2} Normal >60 [facility] Comment on above: Performed By: #### 0 0071 #### [facility] [address] [place] [address], [facility] Glucose [Mass/Vol] 106 mg/dL High 70-100 [facility] Comment on above: Performed By: #### 0 0071 #### [facility] [address] Potassium [Moles/Vol] 4.3 mmol/L Normal 3.5-5.1 [facility] Comment on above: Performed By: #### 0 0071 #### [facility] [address] Sodium [Moles/Vol] 141 mmol/L Normal 136-145 [facility] Comment on above: Performed By: #### 0 0071 #### [facility] [address] [place] [address], [facility] Urea nitrogen [Mass/Vol] 14 mg/dL Normal 7-25 [facility] Comment on above: Performed By: #### 0 0071 #### [facility] [address] [place] [address], [facility] CBC W/DIFFon 03-08-2020 ABS BASOPHILS 0.1 10*3/uL Normal 0.0-0.2 [facility] Comment on above: Performed By: #### 5 0103 ####[facility] ABS IMM GRANS 0.0 10*3/uL Normal 0.0-0.2 [facility] Comment on above: Performed By: #### 5 0103 ####[facility]3000 [facility] [place] [address], [facility] ABS NEUTROPHILS 3.4 10*3/uL Normal 1.6-7.6 [facility] Comment on above: Performed By: #### 5 3 ####[facility] [place] [address], [facility] Basophils/100 WBC (Bld) 0.8 % Normal 0.0-1.0 [facility] Comment on above: Performed By: #### 3 ####[facility]3000 [place] [address], [facility] Eosinophils (Bld) [#/Vol] 0.7 10*3/uL High 0.0-0.5 [facility] Comment on above: Performed By: #### 102 ####[facility] [facility] [place] [address], [facility] Eosinophils/100 WBC (Bld) 9.5 % High 0.0-6.0 [facility] Comment on above: Performed By: #### 5 3 ####[facility]3000 [facility].[address] Erythrocyte distribution width (RBC) [Ratio] 13.6 % Normal 11.5-15.0 [facility] Comment on above: Performed By: #### 3 ####[facility]3000 [facility] [place] [address], [facility] Hematocrit (Bld) [Volume fraction] 42.5 % Normal 36.0-45.0 [facility] Comment on above: Performed By: #### 102 ####[facility]3000 [facility] [place] [address], [facility] Hemoglobin (Bld) [Mass/Vol] 13.7 g/dL Normal 12.0-15.0 [facility] Comment on above: Performed By: #### 5 0103 ####[facility] IMMATURE GRANS 0.3 % Normal 0.0-1.0 [facility] Comment on above: Performed By: #### 3 ####[facility] Lymphocytes (Bld) [#/Vol] 2.7 10*3/uL Normal 1.2-4.0 [facility] Comment on above: Performed By: #### 3 ####[address] Lymphocytes/100 WBC (Bld) 35.1 % Normal 20.0-45.0 [facility] Comment on above: Performed By: #### 3 ####[address] MCH (RBC) [Entitic mass] 31.2 pg Normal 27.0-33.0 [facility] Comment on above: Performed By: #### 5 3 ####[address] MCHC (RBC) [Mass/Vol] 32.2 g/dL Normal 32.0-35.0 [facility] Comment on above: Performed By: #### 3 ####[facility] [place] [address] MCV (RBC) [Entitic vol] 96.8 fL Normal 82.0-98.0 [facility] Comment on above: Performed By: #### 3 ####[address] Monocytes (Bld) [#/Vol] 0.8 10*3/uL Normal 0.1-1.0 [facility] Comment on above: Performed By: #### 5 0103 ####[facility]3000 [place] [address], [facility] MONOS 9.8 % Normal 5.0-12.0 [facility] Comment on above: Performed By: #### 5 3 ####[facility]3000 [place] [address], [facility] Neutrophils/100 WBC (Bld) 44.5 % Normal 40.0-72.0 [facility] Comment on above: Performed By: #### 5 3 ####[facility]3000 [place] [address], [facility] Nucleated RBC/100 WBC (Bld) [Ratio] 0 % Normal 0-0 [facility] Comment on above: Performed By: #### 5 3 ####[facility]3000 [facility].[address] PLAT CNT 230 10*3/uL Normal 150-400 [facility] Comment on above: Performed By: #### 5 0103 ####[facility] [place] [address], [facility] RBC (Bld) [#/Vol] 4.39 10*6/uL Normal 3.80-5.00 [facility] Comment on above: Performed By: #### 5 0103 ####[facility]3000 [place] [address], [facility] WBC (Bld) [#/Vol] 7.72 10*3/uL Normal 4.00-10.60 [facility] Comment on above: Performed By: #### 5 0103 ####[facility]3000 [facility].[address] PROTHROMBIN TIMEon 0 INR Coag (PPP) [Relative time] 0.99 {INR} Normal 0.91-1.16 [facility] Comment on above: Result Comment: ACCC [...] CHEST 1995;108:[id number]. Performed By: #### 5 6101, 26500 #### [facility] 3000 [facility]. [address] PT Coag (PPP) [Time] 13.1 s Normal 12.3-14.8 [facility] Comment on above: Result Comment: ALL RESULTS MUST BE INTERPRETED WITH RESPECT TO BLOOD DRAWING ARTIFACT OR DILUTION ERROR OF ANTICOAGULANT AT THE TIME OF SAMPLING. Performed By: #### 5 6101, 64312 #### [facility] 3000 [facility]. [address] ALBUMIN BLOODon 02-04-2020 Albumin [Mass/Vol] 4.5 g/dL Normal 3.5-5.7 [facility] Comment on above: Performed By: #### 3 0728, 54581, 36202, 26000, 01569 #### [facility] [address] [place] [address], [facility] BASIC METABOLIC PANELon 01-09 Calcium [Mass/Vol] 9.5 mg/dL Normal 8.6-10.3 [facility] Comment on above: Performed By: #### 3 0728, 05624, 80732, 64863, 36318 #### [facility] [address] [place] [address], [place] Chloride [Moles/Vol] 105 mmol/L Normal 98-107 [facility] Comment on above: Performed By: #### 3 0728, 76336, 51971, 09931, 08639 #### [facility] [address] [place] [address], [place] CO2 [Moles/Vol] 27 mmol/L Normal 21-31 [facility] Comment on above: Performed By: #### 3 0728, 60020, 70869, 85113, 17482 #### [facility] [address] [place] [address], [place] Creatinine [Mass/Vol] 0.81 mg/dL Normal 0.60-1.20 [facility] Comment on above: Performed By: #### 3 0728, 55300, 85201, 21854, 92985 #### [facility] [address] [place] [address], [place] GFR/1.73 sq M predicted among blacks MDRD (S/P/Bld) [Vol rate/Area] mL/min/{1.73_m2} Normal >60 [facility] Comment on above: Performed By: #### 3 0728, 97922, 46768, 84927, 00106 #### [facility] [address] [place] [address], [place] GFR/1.73 sq M predicted among non-blacks MDRD (S/P/Bld) [Vol rate/Area] mL/min/{1.73_m2} Normal >60 [facility] Comment on above: Performed By: #### 3 0728, 69674, 49953, 95794, 94242 #### [facility] [address] [place] [address], [place] Glucose [Mass/Vol] 115 mg/dL High 70-100 [facility] Comment on above: Performed By: #### 3 0728, 67173, 03968, 68623, 68281 #### [facility] [address] [place] [address], [facility] Potassium [Moles/Vol] 3.9 mmol/L Normal 3.5-5.1 [facility] Comment on above: Performed By: #### 3 0728, 35420, 18686, 54231, 90971 #### [facility] [address] [place] [address], [facility] Sodium [Moles/Vol] 140 mmol/L Normal 136-145 [facility] Comment on above: Performed By: #### 3 0728, 28906, 80479, 57270, 66010 #### [facility] [address] [facility] [place] [address], [facility] Urea nitrogen [Mass/Vol] 20 mg/dL Normal 7-25 [facility] Comment on above: Performed By: #### 3 0728, 58009, 19021, 91666, 49154 #### [facility] 3000 [facility]. [address] PREALBUMINon 02-04-2020 Prealbumin [Mass/Vol] 24.0 mg/dL Normal 17.0-34.0 [facility] Comment on above: Performed By: #### 3 0728, 17502, 72167, 38215, 01506 #### [facility] 3000 [facility]. [address] TIBIA FIBULA LEFTon 02-04-20 20 TIBIA FIBULA LEFT [facility] Department of Radiology [address] [place] [address] Patient Name: RADHA ZAIDI : [...] indicated. Electronically signed: Eliezer Randolph. Transcribed by: [email or web address], User Resident: Electronically Signed by: ELIEZER RANDOLPH @ 02/04/2020 10:34 AM Normal [facility] TRANSFERRINon 02-04-2020 Transferrin [Mass/Vol] 270 mg/dL Normal 203-362 [facility] Comment on above: Performed By: #### 3 0728, [id number], [id number], [id number], [id number] #### [address] [place] [address], [place] VITAMIN D 25-HYDROXYon 02-03 VITAMIN D 25-OH 38.5 ng/mL Normal 30.0-80.0 [facility] Comment on above: Result Comment: >80. 0 Toxicity possible Performed By: #### 3 0728, 97511, 34454, 72561, [id number] #### [facility] [address] [place] [address], [facility] Gregor 07-06-2018 L - -------- Specimen: [id number] Received: 07/06/18 Status: JONI Lazaro Num: [id number] Spec Type: Surgical Subm Dr: Tash Resendez MD Tissues: A Finger - Amputation, Non-traumatic (LT SMALL FINGER) Procedures: HE Stain/2, Gross/Micro L4, Decal -------- Patient Age/Sex Location Account Attending Physician -------- Radha Zaidi 58/F [place] [id number] Tash Resendez MD -------- SPEC NUM: [id number] RECD: 07/06/18 STATUS: JONI LAZARO NUM: [id number] RUSS: 07/06/18 DR: Tash Resendez MD ENTERED: 07/06/[address] [facility] [address]: JULIUS TYPE: Surgical DEPT: S ORDERED: [...] reveals yellow, viable appearing bony cut surfaces. Net Manager sections are submitted in two cassettes, decal. (ENRIKE/NAA/lina) -------- Specimen: [id number] Received: 07/06/18 Status: KAROLINAMulu Req Num: [id number] Spec Type: Surgical Subm Dr: Tash Resendez MD Tissues: A Finger - Amputation, Non-traumatic (LT SMALL FINGER) Procedures: HE Stain/2, Gross/Micro L4, Decal -------- Patient: Radha Zaidi [id number] (Continued) -------- Specimen: Received: 07/06/18 (Continued) Signed (signature on file) Harsh Jo MD 08/14/18 1503 -------- Specimen: [id number] Received: 07/06/18 Status: JONI Req Num: [id number] Spec Type: Surgical Subm Dr: Tash Resendez MD Tissues: A Finger - Amputation, Non-traumatic (LT SMALL FINGER) Procedures: HE Stain/2, Gross/Micro L4, Decal -------- Patient: Radha Zaidi [id number] (Continued) -------- Specimen: [id number] Received: 07/06/18 (Continued) Microscopic Two glass slides with H E stained material have been examined. The microscopic findings support the above pathologic diagnosis. [id number], [id number] A. - - LT SMALL FINGER -------- -------- Specimen: [id number] Received: 07/06/18 Status: JONI Lazaro Num: [id number] Spec Type: Surgical Subm Dr: Tash Resendez MD Tissues: A Finger - Amputation, Non-traumatic (LT SMALL FINGER) Procedures: HE Stain/2, Gross/Micro L4, Decal -------- Patient: Radha Zaidi [id number] (Continued) -------- Signed (signature on file) Harsh Jo MD 08/14/18 1503 [facility] FLUORO FOR SURGICAL PROCEDUR ESon 10-20-2017 FLUORO FOR SURGICAL PROCEDURES Exam: FLUORO FOR SURGICAL PROCEDURESHistory: ACDF Fusion Findings: Fluoroscopy time was 70 seconds A total of 19 fluoroscopic images were obtained by Dr. Cheng during the anterior cervical discectomy in the lower cervical spine.IMPRESSION: Impression: Fluoroscopic assistance provided for operative guidance.Interpreted by:DIANA Lealigned by:Eugene Cancino MD10/20/17inal result Normal [facility] Basic Metabolic Panelon 04-0 Anion gap 15 mmol/L Critically high 7-13 [facility] Calcium 9.6 mg/dL Normal 8.6-10.2 [facility] Chloride 102 mmol/L Normal 98-107 [facility] CO2 23 mmol/L Normal 22-29 [facility] Creatinine 0.54 mg/dL Normal 0.50-0.90 [facility] eGFR (black) mL/min/{1.73_m2} Normal >60 [facility] Comment on above: Result Comment: >60 mL/min/1.73m2 EGFR, calc. for ages 18 and older using theMDRD formula (not corrected for weight), is valid for stablerenal function. eGFR (MDRD) mL/min/{1.73_m2} Normal >60 [facility] Comment on above: Result Comment: >60 mL/min/1.73m2 EGFR, calc. for ages 18 and older using theMDRD formula (not corrected for weight), is valid for stablerenal function. Glucose mass conc 97 mg/dL Normal 74-109 [facility] Potassium molar conc 4.8 mmol/L Normal 3.5-5.1 [facility] Sodium 140 mmol/L Normal 132-144 [facility] Urea nitrogen 14 mg/dL Normal 6-20 [facility] CBC With Platelet No Differe ntialon 10-13-2017 Erythrocyte distribution width Auto Ratio (RBC) 13.3 % Normal 11.5-14.5 [facility] Erythrocytes (RBC) 4.96 10*6/uL Normal 4.20-5.40 [facility] Hematocrit (HCT) 47.1 % Critically high 37.0-47.0 [facility] Hemoglobin mass conc (Bld) 16.2 g/dL Critically high 12.0-16.0 [facility] MCH 32.7 pg Critically high 27.0-31.3 [facility] MCHC mass conc (RBC) 34.4 % Normal 33.0-37.0 [facility] MCV 95.0 fL Normal 82.0-100.0 [facility] Platelets 223 10*3/uL Normal 130-400 [facility] WBC (Leukocytes) 6.2 10*3/uL Normal 4.8-10.8 [facility] Culture, MRSA Screenon 10-13 Culture, MRSA Screen ORDERED BY: VITO STALLWORTH: Nares Nose COLLECTED: 10/13/17 13:18ANTIBIOTICS AT RUSS.: RECEIVED : 10/13/17 13:18Culture, MRSA Screen FINAL 10/14/17 13:59 No MRSA isolated Normal [facility] Partial Thromboplastin Timeo n 10-13-2017 aPTT 22.9 s Normal 21.6-35.4 [facility] Comment on above: Result Comment: Hepa rin Therapeutic Range: 38.8 - 54.6 seconds. Prothrombin Timeon 201 8 INR Coag RelTime (PPP) 1.0 {INR} Normal [facility] Comment on above: Result Comment: Kashif mmended [...] Coag time (PPP) 10.0 s Normal 8.1-13.7 [facility] Type and Screen Capture 3 sc rn cellon 10-13-2017 Bilirubin (total) PATIENT: DYAN GARCIA LOC: [place]# : [id number] : 1960 SEX: FORDERED BY: BASIM CHENG ORDERED : 10/13/2017 12:41 COLLECTED: 10/13/2017 13:24ORDER : [id number] RECEIVED : 10/13/2017 13:24 T EST NAME RESULT UNITS RANGES ABN FL STABORH Capture A POS FAntibody 3 Cell Scrn Captu NEG F Normal [facility] Urinalysis, reflex to cultur gabbie 10-13-2017 Bilirubin Ql (U) Negative Normal Negative [facility] Urine Reflexed to Culture Not Indicated Normal [facility] Urine, clarity Clear Normal Clear [facility] Urine, color Yellow Normal Straw/Cooke [facility] Urine, glucose presence Negative Normal Negative [facility] Urine, hemoglobin presence Negative Normal Negative [facility] Urine, ketones presence Negative Normal Negative [facility] Urine, leukocyte esterase presence Negative Normal Negative [facility] Urine, nitrite presence Negative Normal Negative [facility] Urine, pH 5.5 [pH] Normal 5.0-9.0 [facility] Urine, protein presence Negative Normal Negative [facility] Urine, specific gravity 1.018 Normal 1.005-1.03 [facility] Urine, urobilinogen 0.2 {Rajwinder'U}/dL Normal < 2.0 [facility] Vital Signs Date Time Vital Sign Value Performing Clinician Facility 12-28-2023 15:31-0400 Body height 165.1 cm [facility] 12-28-2023 15:31-0400 Body mass index (BMI) [Ratio] 25.7 kg/m2 [facility] 12-28-2023 15:31-0400 Body weight 70.08 kg [facility] 12-28-2023 15:31-0400 Diastolic blood pressure 75 mm[Hg] [facility] 12-28-2023 15:31-0400 Heart rate 92 /min [facility] 12-28-2023 15:31-0400 Respiratory rate 12 /min [facility] 12-28-2023 15:31-0400 Systolic blood pressure 112 mm[Hg] [facility] 09-28-2023 15:16-0400 Body height 165.1 cm [facility] 09-28-2023 15:16-0400 Body mass index (BMI) [Ratio] 27.8 kg/m2 [facility] 09-28-2023 15:16-0400 Body weight 75.92 kg [facility] 09-28-2023 15:16-0400 Diastolic blood pressure 68 mm[Hg] [facility] 09-28-2023 15:16-0400 Heart rate 80 /min [facility] 09-28-2023 15:16-0400 Respiratory rate 12 /min [facility] 09-28-2023 15:16-0400 Systolic blood pressure 130 mm[Hg] [facility] 09-05-2023 21:48-0500 Body height 166.37 cm John Ball Other Man[employer] [facility] [employer] Other 09-05-2023 16:33-0500 Body height 165.1 cm [facility] 09-05-2023 16:33-0500 Body mass index (BMI) [Ratio] 28.5 kg/m2 [facility] 09-05-2023 16:33-0500 Body weight 77.79 kg [facility] 09-05-2023 16:33-0500 Diastolic blood pressure 69 mm[Hg] [facility] 09-05-2023 16:33-0500 Heart rate 97 /min [facility] 09-05-2023 16:33-0500 Systolic blood pressure 115 mm[Hg] [facility] 08-18-2023 15:40-0500 Body height 162.6 cm Jordan [employer] Work Phone: [facility] 08-18-2023 15:40-0500 Body mass index (BMI) [Ratio] 28.15 kg/m2 [facility] Work Phone: [facility] 08-18-2023 15:40-0500 Body temperature 97.11 [degF] [facility] Work Phone: [facility] [employer] 08-18-2023 15:40-0500 Body weight 74.39 kg [facility] Work Phone: [facility] [employer] 08-17-2023 15:00-0500 Body height 166.37 cm John Ball Other [employer] [facility] [employer] Other 08-17-2023 15:00-0500 Body mass index (BMI) [Ratio] 28.12 kg/m2 John Ball Other [employer] Other 08-17-2023 15:00-0500 Body weight 77.84 kg John Ball Other [employer] Other 08-17-2023 15:00-0500 Diastolic blood pressure 79 mm[Hg] John Ball Other [employer] Other 08-17-2023 15:00-0500 Respiratory rate 12 /min John Ball Other [employer] Other 08-17-2023 15:00-0500 Systolic blood pressure 126 mm[Hg] John Ball Other [employer] Other 04-07-2023 14:00-0400 Body temperature 97.52 [degF] Jordan [facility] 04-07-2023 14:00-0400 Diastolic blood pressure 63 mm[Hg] Jordan [facility] 04-07-2023 14:00-0400 Heart rate 88 /min Jordan [facility] 04-07-2023 14:00-0400 Mean blood pressure 76 mm[Hg] Jordan [facility] 04-07-2023 14:00-0400 SaO2% (BldA) [Mass fraction] 94 % Jordan [facility] 04-07-2023 14:00-0400 Systolic blood pressure 101 mm[Hg] Jordan [facility] 04-07-2023 08:47-0400 Diastolic blood pressure 75 mm[Hg] Jordan [facility] 04-07-2023 08:47-0400 Systolic blood pressure 125 mm[Hg] Jordan [facility] 04-07-2023 07:45-0400 Blood Pressure Location Jordan Yuan [facility] 04-07-2023 07:45-0400 Body temperature 97.88 [degF] Jordan Yuan [facility] 04-07-2023 07:45-0400 Diastolic blood pressure 75 mm[Hg] Jordan Yuan [facility] 04-07-2023 07:45-0400 Heart rate 72 /min Jordan Yuan [facility] 04-07-2023 07:45-0400 Hourly Rounding Jordan Yuan [facility] 04-07-2023 07:45-0400 Mean blood pressure 92 mm[Hg] Jordan Yuan [facility] 04-07-2023 07:45-0400 Promise to Return Jordan Yuan [facility] 04-07-2023 07:45-0400 Respiratory rate 16 /min Jordan Yuan [facility] 04-07-2023 07:45-0400 SaO2% (BldA) [Mass fraction] 96 % Jordan Yuan [facility] 04-07-2023 07:45-0400 Systolic blood pressure 125 mm[Hg] Jordan Yuan [facility] 04-07-2023 06:17-0400 Hourly Rounding Jordan Yuan [facility] 04-07-2023 06:17-0400 Promise to Return Jordan Yuan [facility] 04-07-2023 05:05-0400 Hourly Rounding Jordan Yuan [facility] 04-07-2023 05:05-0400 Promise to Return Jordan Yuan [facility] 04-06-2023 22:20-0400 Blood Pressure Location Jordan Yuan [facility] 04-06-2023 22:20-0400 Body temperature 98.24 [degF] Jordan Yuan [facility] 04-06-2023 22:20-0400 Heart rate 74 /min Jordan Yuan [facility] 04-06-2023 22:20-0400 Mean blood pressure 78 mm[Hg] Jordan Yuan [facility] 04-06-2023 22:20-0400 Respiratory rate 16 /min Jordan Yuan [facility] 04-06-2023 22:20-0400 SaO2% (BldA) [Mass fraction] 93 % Jordan Yuan [facility] 04-06-2023 20:10-0400 Heart rate 65 /min Jordan Yuan [facility] 04-06-2023 20:01-0400 Body temperature 97.34 [degF] Jordan Yuan [facility] 04-06-2023 20:00-0400 Mean blood pressure 86 mm[Hg] Jordan Yuan [facility] 04-06-2023 16:17-0400 Mean blood pressure 97 mm[Hg] Jordan Yuan [facility] 04-06-2023 16:16-0400 Body temperature 97.52 [degF] Jordan Yuan [facility] 04-06-2023 13:49-0400 Mean blood pressure 88 mm[Hg] Jordan Yuan [facility] 04-06-2023 12:45-0400 Respiratory rate 13 /min Jordan Brown [facility] 04-06-2023 12:35-0400 Respiratory rate 10 /min Jordan Brown [facility] 04-06-2023 12:20-0400 Respiratory rate 17 /min Jordan Brown [facility] 04-06-2023 11:37-0400 Body temperature 96.98 [degF] Jordan Brown [facility] 04-06-2023 06:39-0400 Heart rate 68 /min Jordan Brown [facility] 03-24-2023 14:52-0400 Diastolic blood pressure 76 mm[Hg] Jordan Brown [facility] 03-24-2023 14:52-0400 Heart rate 67 /min Jordan Brown [facility] 03-24-2023 14:52-0400 Mean blood pressure 99 mm[Hg] Jordan Brown [facility] 03-24-2023 14:52-0400 Systolic blood pressure 144 mm[Hg] Jordan Brown [facility] 03-24-2023 14:52-0400 Heart rate 68 /min Jordan Brown [facility] 03-24-2023 14:52-0400 SaO2% (BldA) [Mass fraction] 99 % Jordan Brown [facility] 03-24-2023 14:52-0400 Diastolic blood pressure 75 mm[Hg] Jordan Brown [facility] 03-24-2023 14:52-0400 Mean blood pressure 93 mm[Hg] Jordan Brown [facility] 03-24-2023 14:52-0400 Systolic blood pressure 128 mm[Hg] Jordan Brown [facility] 03-24-2023 14:51-0400 Respiratory rate 16 /min Jordan Yuan [facility] 01-10-2023 15:00-0400 Body height 166.37 cm John Ball Other [employer] Other 01-10-2023 15:00-0400 Body mass index (BMI) [Ratio] 27.04 kg/m2 John Ball Other [employer] Other 01-10-2023 15:00-0400 Body weight 74.84 kg John Ball Other [employer] Other 01-10-2023 15:00-0400 Diastolic blood pressure 86 mm[Hg] John Ball Other [employer] Other 01-10-2023 15:00-0400 Respiratory rate 12 /min John Ball Other [employer] Other 01-10-2023 15:00-0400 Systolic blood pressure 124 mm[Hg] John Ball Other [employer] Other 12-09-2022 09:00-0400 Body height 166.37 cm John Ball Other [employer] Other 12-09-2022 09:00-0400 Body mass index (BMI) [Ratio] 27.33 kg/m2 John Ball Other [employer] Other 12-09-2022 09:00-0400 Body weight 75.66 kg John Ball Other [employer] Other 12-09-2022 09:00-0400 Diastolic blood pressure 71 mm[Hg] John Ball Other [employer] Other 12-09-2022 09:00-0400 Respiratory rate 12 /min John Ball Other [employer] Other 12-09-2022 09:00-0400 Systolic blood pressure 111 mm[Hg] John Ball Other [employer] Other 11-09-2022 15:00-0400 Body height 166.37 cm John Ball Other [employer] Other 11-09-2022 15:00-0400 Body mass index (BMI) [Ratio] 27.36 kg/m2 John Ball Other [employer] Other 11-09-2022 15:00-0400 Body weight 75.75 kg John Ball Other [employer] Other 11-09-2022 15:00-0400 Diastolic blood pressure 80 mm[Hg] John Ball Other [employer] Other 11-09-2022 15:00-0400 Respiratory rate 12 /min John Ball Other [employer] Other 11-09-2022 15:00-0400 Systolic blood pressure 135 mm[Hg] John Ball Other [employer] Other 07-26-2022 16:30-0500 Body height 166.37 cm John Ball Other [employer] Other 07-26-2022 16:30-0500 Body mass index (BMI) [Ratio] 26.28 kg/m2 John Ball Other [employer] Other 07-26-2022 16:30-0500 Body weight 72.76 kg John Ball Other [employer] Other 07-26-2022 16:30-0500 Diastolic blood pressure 78 mm[Hg] John Ashby Other [employer] Other 07-26-2022 16:30-0500 Respiratory rate 12 /min John Ashby Other [employer] Other 07-26-2022 16:30-0500 Systolic blood pressure 122 mm[Hg] John Ashby Other [employer] Other Encounters Encounter Date Encounter Type Care Provider Facility Start: 12-28-2023 End: 12-28-2023 ambulatory [facility] Work Phone: Start: 12-28-2023 End: 12-28-2023 Patient encounter procedure [facility] Work Phone: Start: 11-15-2023 End: 11-15-2023 ambulatory JORDAN YUAN Not Available Start: 11-04-2023 End: 11-04-2023 ambulatory [facility] Start: 09-28-2023 End: 09-28-2023 ambulatory [facility] Work Phone: Start: 09-28-2023 End: 09-28-2023 Patient encounter procedure [facility] Work Phone: Start: 09-13-2023 End: 09-13-2023 ambulatory JORDAN YUAN Not Available Start: 09-06-2023 End: 09-07-2023 ambulatory Jordan Yuan Facility:[facility] Start: 09-06-2023 End: 09-06-2023 Patient encounter procedure Jordan Yuan [facility] Start: 09-05-2023 Non-patient / Non-visit [facility] [place] Work Phone: Start: 09-05-2023 End: 09-05-2023 ambulatory John Ashby Other [employer] Other Start: 09-05-2023 Telephone encounter John Ashby FP [facility] Start: 09-02-2023 Non-patient / Non-visit [facility] [place] Work Phone: Start: 08-30-2023 Non-patient / Non-visit [facility] [place] Work Phone: Start: 08-18-2023 End: 08-18-2023 ambulatory JORDAN YUAN Not Available Start: 08-18-2023 End: 08-18-2023 Patient encounter procedure Jordan Yuan DO Work Phone: [facility] Comment on above: Right shoulder pain, unspecified chronicity (Primary Dx) Start: 08-18-2023 Chart abstracting Jordan do DO Work Phone: [facility] Start: 08-17-2023 End: 08-17-2023 ambulatory John Ashby Other [employer] Other Start: 08-17-2023 Encounter for genera l adult medical examination without abnormal findings John Ashby [facility] Start: 08-17-2023 Periodic preventive med est patient 40-64yrs John Ashby [facility] Start: 07-21-2023 End: 07-21-2023 ambulatory JORDAN YUAN Not Available Start: 07-05-2023 End: 07-05-2023 ambulatory JORDAN YUAN Not Available Start: 06-28-2023 End: 06-28-2023 ambulatory John Ashby Other [employer] Other Start: 06-28-2023 Office outpatient vi sit 15 minutes John Ashby [facility] Start: 05-24-2023 End: 05-24-2023 ambulatory JORDAN YUAN Not Available Start: 05-06-2023 End: 05-06-2023 ambulatory John Ashby Other [employer] Other Start: 05-06-2023 Telephone encounter John SIMON [facility] Start: 04-26-2023 End: 04-26-2023 ambulatory John Ashby Other [employer] Other Start: 04-26-2023 Telephone encounter John SIMON [facility] Start: 04-06-2023 End: 04-07-2023 ambulatory Jordan Yuan Facility:[facility] Start: 04-06-2023 End: 04-07-2023 Admission to same day surgery center Jordan Yuan [facility] Start: 03-31-2023 End: 03-31-2023 ambulatory John Ashby Other [employer] Other Start: 03-31-2023 Telephone encounter John Ashby FP [facility] Start: 03-26-2023 End: 03-26-2023 ambulatory John Ashby Other [employer] Other Start: 03-26-2023 Telephone encounter John Ashby FP [facility] Start: 03-24-2023 End: 03-25-2023 ambulatory Jordan Yuan Facility:[facility] Start: 03-24-2023 End: 03-24-2023 Patient encounter procedure Jordan Yuan [facility] Start: 03-21-2023 End: 03-21-2023 ambulatory John Ashby Other [employer] Other Start: 03-21-2023 Telephone encounter John Ashby FP [facility] Start: 01-12-2023 End: 01-12-2023 ambulatory John Ashby Other [employer] Other Start: 01-12-2023 Telephone encounter John Ashby FP [facility] Start: 01-10-2023 End: 01-10-2023 ambulatory John Ashby Other [employer] Other Start: 01-10-2023 Office outpatient vi sit 15 minutes John Ball [facility] Start: 12-14-2022 End: 12-14-2022 ambulatory John Ball Other [employer] Other Start: 12-14-2022 Telephone encounter John Ball FP [facility] Start: 12-10-2022 End: 12-10-2022 ambulatory John Ball Other [employer] Other Start: 12-10-2022 Telephone encounter John Ball FP [facility] Start: 12-09-2022 End: 12-09-2022 ambulatory John Ball Other [employer] Other Start: 12-09-2022 Office outpatient vi sit 15 minutes John Ball [facility] Start: 11-09-2022 End: 11-09-2022 ambulatory John Ball Other [employer] Other Start: 11-09-2022 Office outpatient vi sit 15 minutes John Ball [facility] Start: 10-13-2022 ambulatory NARENDRANATH LAKSHMIPATHY . Facility:[facility] Start: 10-07-2022 End: 10-08-2022 ambulatory NARENDRANATH LAKSHMIPATHY . Facility:[facility] Start: 09-22-2022 End: 09-22-2022 ambulatory John Ball Other [employer] Other Start: 09-22-2022 Telephone encounter John Ball [facility] Start: 09-16-2022 End: 09-17-[address] JOHN ASHBY Facility:[facility] Start: 08-14-2022 End: 08-14-2022 ambulatory John Ball Other [employer] Other Start: 08-14-2022 Telephone encounter John Ball FP [facility] Start: 07-26-2022 End: 01-16-2023 ambulatory John Ball Other [employer] Other Start: 07-26-2022 Office outpatient vi sit 15 minutes [facility] Start: 07-22-2022 Annual wellness visit John Ashby Other [employer] Other Start: 07-22-2022 Patient encounter procedure John Ashby Other [employer] Other Start: 07-09-2022 End: 07-10-[address] JOHN ASHBY Facility:[facility] Start: 06-21-2022 Adult health examination John Ashby Other [employer] Other Start: 06-21-2022 Gynecological examination normal John Ashby Other [employer] Other Start: 2022 End: 06-09-[address] JOHN ASHBY Facility:[facility] Start: 06-01-2022 End: 06-01-[address] JOHN ASHBY Facility:[facility] Start: 05-24-2022 Encounter for genera l adult medical examination without abnormal findings DR JOHN ASHBY [facility] Start: 05-20-2022 End: 05-21-2022 ambulatory [...] End: 03-13-2020 Patient encounter procedure MARYURI ALEXANDER Facility:[facility] Start: 03-05-2020 End: 03-20-2020 Patient encounter procedure MARYURI ALEXANDER Facility:[facility] Start: 10-20-2017 End: 10-21-2017 Ambulatory BARRY H. BASIM [facility] Start: 10-13-2017 End: 10-18-2017 Ambulatory BARRY H. BASIM [facility] Procedures Date Procedure Procedure Detail Performing Clinician [...] [address] [place] [id number] Jordan Yuan, DO [address] [place] [address] [facility] Start: 08-18-2023 End: 08-18-2023 Patient encounter procedure 08/18/2023 3:45 PM EST Office Visit [facility] [address] [place] [id number] Jordan Yuan, [address] [place] [address] [facility] Start: 08-18-2023 End: 08-18-2024 C reactive protein [Mass/volume] in Serum or Plasma C-reactive protein Lab Routine Right shoulder pain, unspecified chronicity Expected: 08/18/2023 (Approximate), Expires: 08/18/2024 [facility] Comment on above: Expected: 08/18/2023 (Approximate), Expires: 08/18/2024 Start: 08-18-2023 End: 08-18-2024 CBC W Auto Differential panel - Blood CBC auto differential Lab Routine Right shoulder pain, unspecified chronicity Expected: 08/18/2023 (Approximate), Expires: 08/18/2024 [facility] Work Phone: Comment on above: Expected: 08/18/2023 (Approximate), Expires: 08/18/2024 Start: 08-18-2023 End: 08-18-2024 Erythrocyte sedimentation rate Sedimentation rate, automated Lab Routine Right shoulder pain, unspecified chronicity Expected: 08/18/2023 (Approximate), Expires: 08/18/2024 [facility] Comment on above: Expected: 08/18/2023 (Approximate), Expires: 08/18/2024 Start: 08-18-2023 End: 08-18-2024 Interleukin-6 Interleukin-6 Lab Routine Right shoulder pain, unspecified chronicity Expected: 08/18/2023 (Approximate), Expires: 08/18/2024 [facility] Comment on above: Expected: 08/18/2023 (Approximate), Expires: 08/18/2024 Immunizations Immunization Date Immunization Notes Care Provider Angélica kwon 03-22-2012 tetanus and diphther ia toxoids, adsorbed, preservative free, for adult use (5 Lf of tetanus toxoid and 2 Lf of diphtheria toxoid) John Ashby Other [facility] Payers Date Payer Category Payer [facility] [id number] 2021 Unknown [id number] 2020 Medicare MEDICARE MEDICAR E PART B [id number] 2020-[place] [address] Medicare [id number]. [id number] 2017 Unknown [id number] 1960 Unknown [id number] 2.16.840.1.703964.3.579.2. 647 1960 Unknown [id number] 2.16.840.1.474301.3.579.2. 647 1960 Unknown [id number] 2.16.840.1.401246.3.579.2. 593 1960 Unknown [id number] 2.16.840.1.061695.3.579.2. 593 1960 Unknown [id number] 2.16.840.1.452680.3.579.2. 593 1960 Unknown [id number] 2.16.840.1.927190.3.579.2. 593 1960 Unknown [id number] 2.16.840.1.272017.3.579.2. 593 1960 Unknown [id number] 2.16.840.1.328471.3.579.2. 593 1960 Unknown [id number] 2.16.840.1.326606.3.579.2. 593 1960 Unknown [id number] 2.16.840.1.295674.3.579.2. 593 1960 Unknown [id number] 2.16.840.1.456563.3.579.2. 593 1960 Unknown [id number] 2.16.840.1.573420.3.579.2. 593 1960 Unknown [id number] 2.16.840.1.789003.3.579.2. 593 1960 Unknown [id number] 2.16.840.1.496147.3.579.2. 593 1960 Unknown [id number] 2.16.840.1.818006.3.579.2. 593 1960 Unknown [id number] 2.16.840.1.057211.3.579.2. 593 1960 Unknown [id number] 2.16.840.1.486450.3.579.2. 593 1960 Unknown [id number] 2.16.840.1.079043.3.579.2. 593 1960 Unknown [id number] 2.16.840.1.379640.3.579.2. 593 1960 Unknown [id number] 2.16.840.1.487067.3.579.2. 727 1960 Unknown [id number] 2.16.840.1.455851.3.579.2. 727 1960 Unknown [id number] 2.16.840.1.885221.3.579.2. 727 1960 Unknown [id number] 2.16.840.1.939339.3.579.2. 1259 1960 Unknown [id number] 2.16.840.1.558239.3.579.2. 9 1960 Unknown [id number] 2.16.840.1.978695.3.579.2. 9 1960 Unknown [id number] 2.16.840.1.656374.3.579.2. 9 1960 Unknown [id number] 2.16.840.1.801901.3.579.2. 1258 1960 Unknown [id number] 2.16.840.1.722960.3.579.2. 1258 1960 Unknown [id number] 2.16.840.1.060400.3.579.2. 9 1960 Unknown [id number] 2.16.840.1.964555.3.579.2. 9 1960 Unknown [id number] 2.16.840.1.411080.3.579.2. 9 1960 Unknown [id number] 2.16.840.1.171936.3.579.2. 1258 1960 Unknown [id number] 2.16.840.1.121569.3.579.2. 9 1959 Medicare [id number] 1959 Self-pay 1959 Unknown [id number] 1959 Unknown [id number] Social History Date Type Detail Facility Unknown if ever smoked [facility] Other Start: 07-21-2023 End: 08-18-2023 Sex Assigned At [facility] Tobacco smoking status No Smokin g Status Entered [facility] Start: 07-06-2018 End: 05-24-2023 Tobacco smoking status MIIS Ex-smoker [facility] End: 07-11-1990 History of [...] Start: 1960 Sex Assigned At Female F [facility] Medical Equipment Procedure Code Equipment [...] Assessment Result Facility 03-24-2023 Functional Status No [facility] Clinical Notes 10-22-2021 to 11-04-2023 Kathi eNumann - 08/18/2023 3:45 PM EST Note Date & Type Note Facility 11-04-2023 Note [facility] Subjective Radha Zaidi is a [...] In the past she was admitted to [facility] with pneumonia and empyema, underwent chest tube, [...] mouth if needed., Disp: , Rfl: HYDROcodone-acetaminophen (Colwell) 5-325 mg tablet, TAKE 1 TABLET BY [...] HDL 74. Imagin (more content not included)... 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 She states her hand has improved. She points to the anterior aspect of the shoulder as the location of her discomfort. SUBJECTIVE: MEDICATIONS: Current Outpatient Medications Medication Instructions aspirin 81 MG EC tablet 1 tablet, Oral, Daily buPROPion XL (Wellbutrin XL) 300 MG 24 hr tablet citalopram (CeleXA) 10 MG tablet HYDROcodone-acetaminophen (Colwell) 5-325 MG tablet TAKE 1 TABLET BY [...] Symptoms tolerable, continue medical treatment f/u Rheumatology [facility] Other 12-19-2023 Evaluation note* Encounter Date Diagnosis [...] Jun, Immunosuppressed sta tus (ICD-10 - D84.9) [facility] Other 09-28-2023 Evaluation + Plan noteExtracted from: [...] Basic PRE Author:Hill Rai DO Date:04/06/23 Plan [place] [employer] Anesthesiologists (ASA) physical status classification: Class II. Anesthetic Preoperative Plan: Anesthesia General. Regional Interscalene block. [facility]09-28-2023 NotePatient: RADHA ZAIDI Age: 62 years [...] 15 mg, 1 tab(s), Oral, Daily, 0 Refill(s)[facility]:Result Comment: Electronically Signed By: Jordan Yuan DO\.br\Date and Time Signed: 04/07/23 07:42 [id number] Hospital Discharge instructions Patient Education 04/07/2023 07:41:33 Iris Yuan - Shoulder Replacement (Custom) [place], [place] [facility] DISCHARGE INSTRUCTIONS: SHOULDER REPLACEMENT [...] persistent vomiting. 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 Suggested referral to Electronic Publisher [facility] Other 05-02-2023 Evaluation note* Encounter Date Diagnosis [...] a normal BMI. Monitor BP while taking Vital Energiex [facility] Other 03-30-2023 NoteCONSULTATION PROCEDURE DATE: 10/07/2022 PROCEDURE: [...] at least 80% reduction of pain symptoms.[facility] [id number] NoteCONSULTATION CONSULTATION DATE: 10/07/2022 ADDENDUM: On examination of the right shoulder, the patient did have a positive right sided full can test, a positive Neida's test, Apley's test and cross body test. All four positive on examination date 10/07/2022.[facility] [id number] NoteCONSULTATION CONSULTATION DATE: 10/07/2022 TO: John Ashby [...] activity modification, use of Zanaflex, Lyrica and Colwell. RECOMMENDATIONS: I recommend proceeding with a right [...] right shoulder without contrast and physical therapy.[facility] [id number] Evaluation note* Encounter Date Diagnosis Assessment Notes Treatment Notes Treatment Clinical Notes Aug, Anemia (ICD-10 - D64.9) [facility] Other 01-16-2023 Evaluation note* Encounter Date Diagnosis [...] Healthy diet, exercise w/o change in treatment [facility] Other [id number] NoteCONSULTATION PROCEDURE DATE: 07/09/2022 PREOPERATIVE DIAGNOSIS: Right [...] will be followed up in the office.[facility] [id number] NoteCONSULTATION CONSULTATION DATE: 07/09/2022 HISTORY OF PRESENT [...] possible increase in dose. She also takes Colwell 5/325 t.i.d. and Zanaflex 4 mg three [...] three months' time, unless otherwise indicated. [facility] HospitalRzfvqenc14-06-2450 NoteCONSULTATION CONSULTATION DATE: 05/20/2022 HISTORY OF PRESENT [...] medications include Celexa, Lyrica 50 mg b.i.d., Colwell 5/325 t.i.d. and Zanaflex. Patient is having [...] level of C3-4. We will refill her Colwell at 5/325 t.i.d. Supportive home measures were discussed such as heat and a menthol heat rub, as well as vitamin compliance. The patient agrees to move forward with the plan, will be followed up in the clinic thereafter.[facility] [id number] NoteCONSULTATION PROCEDURE DATE: 02/17/2022 PRE AND POSTOPERATIVE [...] will be followed up in the clinic.[facility] [id number] NotePROCEDURE: XR SHOULDER RT 2V or > COMPARISON: None. HISTORY: Pain of right shoulder joint FINDINGS: BONES:No acute fracture or dislocation. Minimal degenerative changes. Cervical fusion hardware SOFT TISSUES:Negative. No visible soft tissue swelling. EFFUSION:None visible. OTHER: Negative. IMPRESSION: No acute abnormality Electronically authenticated by: VANDANA COLLINS Date: 2022-02-16 19:11[facility] [id number] NoteCONSULTATION CONSULTATION DATE: 02/02/2022 CHIEF COMPLAINT: Right [...] aggravates the pain. The patient currently takes Colwell 5/325 t.i.d., wellbutrin 150 mg, Lyrica 50 [...] point tenderness along the right bicipital tendon. Repairer Pump strength is maintained. IMPRESSION: Current working diagnosis [...] like to proceed. 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 Cold weather and bending bother her as well. Medications include Lyrica 75 mg t.i.d., which she has not been taking for the past two months; Celexa, Colwell 5/325 t.i.d., Zanaflex and RINVOQ. She feels that her pain is managed well with her Colwell, but is concerned about the neuropathic pain [...] in need of a refill for her Colwell today, which we will give 5/325 t.i.d. [...] in three months' time unless otherwise indicated. [facility] Signed and Approved by: JACQUIE OLIVAS . 11/12/2021 16:27[facility]00[facility] Future Appointments Appointment Date:04/06/2023 09:30:00 AM Scheduled Provider: Location:[facility] Other Evaluation note* Diagnosis Right shoulder pain, unspecified chronicity- Primary documented [facility] this [facility] Diagnosis Onset Date Resolution Status Hypertension acute Overweight acute PSVT (paroxysmal supraventricular tachycardia) acute [facility] Work Phone: History general Narrative - [...] ACDF C4-6 05/30 Hospitalization History See Above [facility] Other [facility] general Narrative - Reported* Type Description Date [...] ar throplasty 03/2023 Hospitalization History See Above [facility] Other Hospital course Narrative No data available for this section [facility] No data available for this section [facility] No data available for this section [facility] Summary Purpose Family History Relationship Condition [...] section and content) DATE CREATED AUTHOR 12/29/2017 [facility] DATE CREATED AUTHOR AUTHOR'S ORGANIZ ATION 08/29/2018 [facility] DATE CREATED AUTHOR AUTHOR'S ORGANIZ ATION 05/13/2020 [facility] DATE CREATED AUTHOR AUTHOR'S ORGANIZ ATION 10/15/2022 [facility] DATE CREATED AUTHOR AUTHOR'S ORGANIZ ATION 09/10/2023 [facility] DATE CREATED AUTHOR AUTHOR'S ORGANIZ ATION 11/07/2023 [facility] DATE CREATED AUTHOR AUTHOR'S ORGANIZ ATION 11/17/2023 [facility] dical Specialists EPIC REASON FOR VISIT (unrecogniz [...] December 28, 2023 End: December 28, 2023 Skiff Operator Relationship Specialty Start Date End Date John Ashby MD [address] [place] [id number] PCP - General Internal Medicine 12/23/22 Skiff Operator Relationship Specialty Start Date End Date John Ashby MD [address] [place] [id number] PCP - General Internal Medicine 12/23/22 Team [...] BE BASED ON THE PRIMARY CLINICAL RECORDS. [facility] [employer] [facility]. provides no warranty or guarantee of the accuracy or completeness of information in this document.
== END 2024-01-24 15:05 | disposition home or self-care (01) ==
LOC: PM 15:04
PROVIDERS: PCP Internal Medicine; Visit Provider Anesthesiology Pain Medicine
DX: M25.512 Pain in left shoulder (principal)
CPT/HCPCS: 64418; J0665; J3301

== ENCOUNTER 2024-02-02 15:16 | Outpatient (OUT) | payer BC, MEDICARE, SELFPAY ==
--- NOTE | 2024-02-02 15:43 | MR_ITS ---
[place] [id number] Patient Name: ALEXANDER ZAIDI MRN: [id number] date: 1960 Sex: F Assigned Patient Location: MRI Current Patient Location: Accession/Order Number: [id number] Exam Date: 02/02/2024 15:55 Report Date: 02/06/2024 08:08 At the request of: NICOLE SANCHEZ Procedure: MR shoulder LT wo con EXAMINATION: MR shoulder LT wo con HISTORY: Unspecified rotator cuff tear or rupture of left shoulder ; chronic left shoulder pain COMPARISON: No relevant comparison available. TECHNIQUE: A variety of imaging planes and parameters were utilized for visualization of suspected pathology. Imaging was performed without or with contrast as indicated by examination type. FINDINGS: ROTATOR CUFF REGION CUFF TENDONS: Disruption of the supraspinatus tendon with 1.4 cm separation of the 2 ends. CUFF MUSCLES: Normal appearing muscles. DELTOID: Normal. No significant atrophy or tear. LONG BICEPS TENDON: Normal. No abnormal signal, attrition, or tear. LABRUM/BICEPS ANCHOR SUPERIOR: No visible labral tear or biceps anchor pathology. ANTERIOR/INFERIOR: No visible tear or attrition. POSTERIOR: No posterior labrum abnormality. CAPSULE No visible capsular laxity or thickening. AC JOINT REGION AC JOINT: Mild osteoarthropathy with mild narrowing of the underlying coracoacromial arch. AC LIGAMENTS: Normal acromioclavicular ligament. CC LIGAMENTS: Normal coracoclavicular ligaments. ACROMION: Normal horizontal (Type I) configuration. SUBACROMIAL BURSA: Mild effusion. HYALINE CARTILAGE: Normal. No visible cartilage narrowing or focal defect. OTHER BONES: Normal proximal humerus, glenoid, and coracoid. OTHER OBSERVATIONS: Negative. No other significant findings or glenohumeral effusion. MR/MR shoulder LT wo con IMPRESSION: 1. Disruption of the supraspinatus tendon with 1.4 cm retraction. 2. Small subacromial-subdeltoid bursa fluid collection. 3. Mild to moderate degenerative change of the acromioclavicular joint. Electronically authenticated by: JULIAN CEBALLOS Date: 02/06/2024 08:08
== END 2024-02-02 15:17 | disposition home or self-care (01) ==
LOC: MRI 15:17
PROVIDERS: PCP Internal Medicine; Visit Provider Anesthesiology Pain Medicine
DX: M75.102 Unspecified rotator cuff tear or rupture of left shoulder, not specified as traumatic (principal); M05.79 Rheumatoid arthritis with rheumatoid factor of multiple sites without organ or systems involvement; M15.0 Primary generalized (osteo)arthritis; Z79.899 Other long term (current) drug therapy
CPT/HCPCS: 36415; 73221; 80053; 85025; 85652

== ENCOUNTER 2024-02-02 15:18 | Outpatient (OUT) | payer BC, MEDICARE, SELFPAY ==
[2024-02-02 15:53] LABS: Basophils Percent Auto 0.8 % (0.2-2.0); Eosinophils Absolute Auto 0.1 10^3/uL (0.0-0.7); Eosinophils Percent Auto 2.1 % (0.9-7.0); Hematocrit 31.9 % (36.0-48.0); Hemoglobin 10.2 g/dL (12.0-16.0); Immature Granulocytes Abs Auto 0.02 10^3/uL (0.00-0.03); Immature Granulocytes Pct Auto 0.5 % (0.0-0.5); Lymphocytes Absolute Auto 1.5 10^3/uL (1.2-3.8); Lymphocytes Percent Auto 40.3 % (20.5-60.0); Mean Corpuscular Hemoglobin 31.7 pg (26.7-34.0); Mean Corpuscular Volume 99.1 fL (81.0-99.0); Mean Platelet Volume 9.3 fL (9.5-13.5); Monocytes Absolute Auto 0.6 10^3/uL (0.3-0.8); Monocytes Percent Auto 16.1 % (1.7-12.0); Neutrophils Absolute Auto 1.5 10^3/uL (1.4-6.5); Neutrophils Percent Auto 40.2 % (43.0-75.0); Platelet Count 236 10^3/uL (150-450); Red Blood Count 3.22 10^6/uL (4.20-5.40); Red Cell Distribution Width 14.2 % (11.0-15.0); White Blood Count 3.8 10^3/uL (4.0-11.0)
[2024-02-02 16:11] LABS: Erythrocyte Sedimentation Rate 12 mm/hr (<=30)
[2024-02-02 16:12] LABS: Alanine Aminotransferase 20 U/L (14-59); Albumin Globulin Ratio 1.3; Albumin Level 3.9 g/dL (3.4-5.0); Alkaline Phosphatase 48 U/L (46-116); Anion Gap 15.1; Aspartate Amino Transferase 23 U/L (15-37); BUN Creatinine Ratio 15.6; Bilirubin Total 0.5 mg/dL (0.2-1.0); Calcium 9.1 mg/dL (8.5-10.1); Carbon Dioxide 24.8 mmol/L (21.0-32.0); Chloride 108 mmol/L (98-107); Estimated GFR (African America >60 (>=60); Estimated GFR (Non-African Ame 51 (>=60); Globulin 2.9 g/dL; Glucose 87 mg/dL (74-106); Potassium 3.9 mmol/L (3.5-5.1); Sodium 144 mmol/L (136-145); Total Protein 6.8 g/dL (6.4-8.2)
== END 2024-02-02 15:19 | disposition home or self-care (01) ==
LOC: LAB 15:20
PROVIDERS: PCP Internal Medicine; Visit Provider Internal Medicine Rheumatology
DX: M05.79 Rheumatoid arthritis with rheumatoid factor of multiple sites without organ or systems involvement (principal); M15.0 Primary generalized (osteo)arthritis; Z79.899 Other long term (current) drug therapy
CPT/HCPCS: 36415; 80053; 85025; 85652

== ENCOUNTER 2024-02-14 13:42 | Outpatient (OUT) | payer BC, MEDICARE, SELFPAY ==
[2024-02-14 14:53] LABS: Percent Iron Saturation 81.2 %
[2024-02-14 16:04] LABS: Basophils Percent Auto 0.8 % (0.2-2.0); Eosinophils Absolute Auto 0.1 10^3/uL (0.0-0.7); Eosinophils Percent Auto 1.5 % (0.9-7.0); Hematocrit 35.4 % (36.0-48.0); Immature Granulocytes Abs Auto 0.04 10^3/uL (0.00-0.03); Immature Granulocytes Pct Auto 0.8 % (0.0-0.5); Lymphocytes Absolute Auto 2.3 10^3/uL (1.2-3.8); Lymphocytes Percent Auto 48.7 % (20.5-60.0); Mean Corpuscular HGB Conc 31.1 g/dL (29.9-35.2); Mean Corpuscular Hemoglobin 31.9 pg (26.7-34.0); Mean Corpuscular Volume 102.6 fL (81.0-99.0); Mean Platelet Volume 9.1 fL (9.5-13.5); Monocytes Absolute Auto 0.6 10^3/uL (0.3-0.8); Monocytes Percent Auto 13.3 % (1.7-12.0); Neutrophils Absolute Auto 1.7 10^3/uL (1.4-6.5); Neutrophils Percent Auto 34.9 % (43.0-75.0); Platelet Count 197 10^3/uL (150-450); Red Blood Count 3.45 10^6/uL (4.20-5.40); Red Cell Distribution Width 15.1 % (11.0-15.0); White Blood Count 4.7 10^3/uL (4.0-11.0)
== END 2024-02-14 13:43 | disposition home or self-care (01) ==
LOC: LAB 13:43
PROVIDERS: PCP Internal Medicine; Visit Provider Internal Medicine
DX: D64.9 Anemia, unspecified (principal)
CPT/HCPCS: 36415; 82607; 82728; 82746; 83540; 83550; 85025

== ENCOUNTER 2024-02-14 14:04 | Outpatient (OUT) | payer BC, MEDICARE, SELFPAY ==
--- NOTE | 2024-02-14 | CONS_ITS ---
CONSULTATION DATE: 02/14/2024 TO: Dr. Mcdaniels HISTORY OF PRESENT ILLNESS: She presents today complaining of 5/10 pain in her left shoulder area, described as a sharp, deep, aching pain increased with lifting maneuvers or pushing/pulling maneuvers. She feels most comfortable in the semi-recumbent position. Denies any change in bowel and bladder habits or new sensorimotor changes in the upper extremities. Her JASEN on today?s visit was 52. CURRENT MEDICATION: Includes Crawford 5 mg t.i.d., Lyrica 150 b.i.d., Zanaflex 4 mg in the morning and 2 at h.s., which she reports the medication improves her quality of life, level of functioning and sleep pattern. Denies any side effects and there is no sign of acceleration or abuse of medication. EXAM: Her examination is notable for patient still having pain with empty can sign on the left side, as well as with left shoulder extension, internal rotation and adduction. IMAGING: We did review her MRI of her left shoulder. RECOMMENDATIONS: I recommend she consider Orthopedic consultation for a rotator cuff tear as well as physical therapy, to continue the current regimen of medications. Will see her back in the office in approximately 2-3 months time or sooner if needed. As part of providing excellent, safe, comprehensive care, the following was completed at our patient's visit: 1. A medication reconciliation and review to ensure accurate knowledge of current/active medications, including asking our patients to inform us about any [id number] medications or herbal remedies/nutritional supplements/alternative remedies. 2. A review to specifically ensure our patients have had annual screening for: elevated body mass index (BMI, see intake chart for exact total), tobacco use, screening for depression, and screening for unhealthy alcohol use. When screening is concerning, patients are provided with education and the specific recommendation to discuss the concerning health issue and treatment options with their primary care provider. MANA
--- OUTSIDE RECORDS SUMMARY | 2024-02-14 14:27 | XMS_ITS | CCD ---
Author Organization [facility] Care Team Providers Care Breakfast And Room Attendant Name Role Phone BASIM, BARRY H. Unavailable Unavailable BASIM, BARRY H. Unavailable Unavailable BALL, JOHN E Unavailable Unavailable BASIM, BARRY H. Unavailable Unavailable BALL, JOHN E Unavailable Unavailable EBRAHEIM, MARYURI Attending Unavailable EBRAHEIM, MARYURI Admitting Unavailable BALL, JOHN Referring Unavailable BALL, JOHN Primary Care Unavailable EBRAHEIM, MARYURI Surgeon Unavailable ND Procedure Practitioner Unavailab le ND Procedure Practitioner Unavailab TASH Chery Surgeon Unavailable [...] Amy vailable JOHN ASHBY Primary Care Physician [phone] Cesia Artis Unavailable Unavailable John Ashby MD [...] Date of Onset Reaction(s) Facility (1 source) [id number]; Translations: [Unknown] Propensity to adverse reactions (disorder) [address] [facility] Repository (18 sources) Cephalexin Drug Allergy Unknown [employer] Other (7 sources) patient allergy list reviewed by nurse or physicia Propensity to adverse reactions 4 Comment:Done [employer] Other Medications Current Medications Medication Drug Class(es) Dates Sig (Normalized) Sig (Original) acetaminophen 325 mg / HYDROcodone bitartrate 5 mg oral tablet (3 sources) Opioid Agonist Start: 06-30-2023 take 1 tablet by mouth three times daily as needed HYDROcodone-aceta minophen ([place]) 5-325 MG tablet TAKE 1 TABLET BY MOUTH 3 TIMES A DAY NEEDED FOR PAIN*MUS LAST 30 DAYS 0 06/30/2023 Active acetaminophen 325 mg / oxyCODONE hydrochloride 5 mg oral tablet (5 sources) Opioid Agonist Start: 04-06-2023 Percocet 5 mg-325 mg oral tablet See Instructions, 40 tab(s), Refill(s) 0, 1-2 tab(s) Oral q4hr, [facility]/pharmacy #[id number], 160, cm, 03/25/23 6:16:00 [...] pain, # 60 cap(s), Refills(s) 0, Pharmacy: [facility]/pharmacy #[id number], 160, cm, 03/25/23 6:16:00 EDT, Height/Length Dosing, 73.5, kg, 03/25/23 6:16:00 EDT, Weight Dosing Start Date: 04/06/23 Status: Ordered cephalexin 500 mg oral capsule (1 source) Cephalosporin Antibacterial Start: 04-06-2023 End: 04-13-2023 take 1 capsule by mouth every eight hours Keflex 500 mg Cap 500 mg = 1 cap(s), Oral, q8hr, X 7 day(s), # 21 cap(s), Refills(s) 0, Pharmacy: [facility]/pharmacy #[id number], 160, cm, 03/25/23 6:16:00 [...] constipation, # 20 cap(s), Refills(s) 0, Pharmacy: [facility]/pharmacy #[id number], 160, cm, 03/25/23 6:16:00 [...] 2023 2:54pm take 1 capsule by mo [facility] every six hours tiZANidine HCl 4 [...] Start: 06-28-2023 take 1 capsule by mo [facility] every twelve hours Doxycycline Hyclate 100 [...] monitoring] Episodic Other aftercare (1 source) Other assisted (current) drug therapy; Translations: [OTH [facility] CURRENT DRUG THERAPY] Onset: 09-17-2022 Episodic Other [...] Range Facility Office Visiton 11-04-2023 Follow-up visit [id number] Radha Zaidi 1960 F Date Provider Department Center 11/04/2023 [facility] Family History Family history unknown: Yes Level of Service:79714 ND OFFICE/OUTPATIENT ESTABLISHED MOD MDM 30 MIN Reason for Visit and Comments: Follow-up [778448] - 2 year Patient has been taking metoprolol [address] [facility] CT Upper Extremity w/o Contr ast [...] MD Transcribed by: DANISHA Technologist: ARNULFO Shah [facility] Lab Miscellaneous-LCon Lab Miscellaneous COMMENT Invalid Interpretation Code [facility] Comment on above: Result Comment: Test Ordered: [id number] Interleukin-6, Serum Interleukin-6, Serum <2.5 pg/mL Reference [...] endotracheal intubation or mechanical ventilation. Performed at: [address] [id number] PhD Saturnino Morse Performed By: #### 1 [id number] ####[facility] [address] [place] [address] CBC w/ Auto Diffon 4 Basophil Absolute 0.0 E9/L Normal 0.0-0.2 [facility] Comment on above: Performed By: #### 2 618977, 2249513, [id number] #### [facility] [address] [place] [address] Basophils/100 WBC (Bld) 0.4 % Normal 0.0-2.0 [facility] Comment on above: Performed By: #### 2 437784, 8152804, [id number] #### [facility] [address] [place] [address] Eos Absolute 0.0 E9/L Normal 0.0-0.5 [facility] Comment on above: Performed By: #### 2 493272, 2912205, 98547609 #### [facility] [address] [place] [address] Eosinophils/100 WBC (Bld) 0.2 % Normal 0.0-8.0 [facility] Comment on above: Performed By: #### 2 074875, 6540035, [id number] #### [facility] [address] [place] [address] Erythrocyte distribution width (RBC) [Ratio] 14.3 % High 10.9-14.2 [facility] Comment on above: Performed By: #### 2 191581, 4189742, 36441393 #### [facility] [address] [place] [address] Hematocrit (Bld) [Volume fraction] 40.0 % Normal 34.0-46.0 [facility] Comment on above: Performed By: #### 2 132944, 7185728, 28240205 #### [facility] [address] [place] [address] Hemoglobin (Bld) [Mass/Vol] 12.7 g/dL Normal 12.0-16.0 [facility] Comment on above: Performed By: #### 2 274739, 1022305, [id number] #### [facility] [address] [place] [address] Lymph Absolute 0.9 E9/L Low 1.0-4.0 [facility] Comment on above: Performed By: #### 2 048700, 9256292, [id number] #### [facility] [address] [place] [address] Lymphocytes/100 WBC (Bld) 25.2 % Normal 14.0-50.0 [facility] Comment on above: Performed By: #### 2 603007, 9235389, 04856693 #### [facility] [address] [place] [address] MCH (RBC) [Entitic mass] 30.6 pg Normal 27.0-34.0 [facility] Comment on above: Performed By: #### 2 932953, 0804119, 39257207 #### [facility] [address] [place] [address] MCHC (RBC) [Mass/Vol] 31.7 g/dL Normal 31.4-36.0 [facility] Comment on above: Performed By: #### 2 002828, 0818057, 11246193 #### [facility] [address] [place] [address] MCV (RBC) [Entitic vol] 96.5 fL Normal 80.0-100.0 [facility] Comment on above: Performed By: #### 2 130249, 0143487, 36793846 #### [facility] [address] [place] [address] Bureau Absolute 0.3 E9/L Normal 0.2-1.0 [facility] Comment on above: Performed By: #### 2 437903, 4623480, 37784813 #### [facility] [address] [place] [address] Monocytes/100 WBC (Bld) 7.3 % Normal 4.0-14.0 [facility] Comment on above: Performed By: #### 2 334093, 4342789, 68530647 #### [facility] [address] [place] [address] Neutro Absolute 2.3 E9/L Normal 2.0-7.5 [facility] Comment on above: Performed By: #### 2 037470, 6109738, 38501599 #### [facility] [address] [place] [address] Neutro Auto 66.9 % Normal 36.0-75.0 [facility] Comment on above: Performed By: #### 2 274607, 4375355, 83723533 #### [facility] [address] [place] [address] Platelet 257.0 E9/L Normal 150.0-500.0 [facility] Comment on above: Performed By: #### 2 068940, 5369657, 08171408 #### [facility] [address] [id number] Platelet mean volume (Bld) [Entitic vol] 7.4 fL Normal 6.4-10.8 [facility] Comment on above: Performed By: #### 2 976420, 9661475, 07859851 #### [facility] [address] [place] [address] RBC 4.1 E12/L Low 4.3-5.9 [facility] Comment on above: Performed By: #### 2 369970, 6700405, 92306367 #### [facility] [address] [place] [address] WBC 3.4 E9/L Low 4.0-11.0 [facility] Comment on above: Performed By: #### 2 466070, 5097264, 71074918 #### [facility] [address] [place] [address] CHEMISTRYOrdered By: SYSTEM SYSTEM on 09-06-2023 CRP mg/dL Normal <=1.9mg/dL Remisol Chem CRPon 09-06-2023 CRP [Mass/Vol] mg/L Normal <=1.9 [facility] Comment on above: Performed By: #### 2 931387, 3548667, 16413543 #### [facility] [address] [place] [address] Consent for Treatmenton 08-12 Consent for Treatment [id number] .00TIFF Normal [facility] HEMATOLOGYOrdered By: SYSTEM SYSTEM on 09-06-2023 Basophil [...] Normal 80.0 - 100.0 fL Remisol Heme Bureau Absolute 0.3 E9/L Normal 0.2 - 1.0 [...] 14 mm/h Normal 0 - 34 mm/hr [facility] Miscellaneous-LCon 09-06 Test Code 431417 Invalid Interpretation Code [facility] Comment on above: Performed By: #### 1 [id number] ####[facility] [address] [place] [address] Test Name interleukin 6 Invalid Interpretation Code [facility] Comment on above: Performed By: #### 1 [id number] ####[facility] [address] [place] [address] Physician Orderon 09-06-2023 Physician Order [id number]#1 .00TIFF Normal [facility] Reference Laboratory Testing Ordered By: Jojo Gonsales on 09-06-2023 Test Code 456032 1 Invalid Interpretation Code [facility] [employer] Test Name interleukin 6 Invalid Interpretation Code [facility] SendOutsSS Sed Rate Automatedon 024 ESR (Bld) [Velocity] 14 mm/h Normal 0-34 [facility] Comment on above: Performed By: #### 2 167263, 7685627, 63034804 #### [facility] [address] [place] [address] Physician Orderon 08-31-2023 Physician Order [id number]#1 .00TIFF Normal [facility] Basophils Auto (Bld) [#/Vol] on 08-30-2023 Basophils (Bld) [#/Vol] 0.0 10 3/uL 0.0-0.[address] [facility] Basophils/100 WBC Auto (Bld) on 08-30-2023 Basophils/100 WBC (Bld) 0.8 % 0.2-2.[address] [facility] Cholesterol in LDL Calc [Mas s/Vol]on 08-30-2023 Cholesterol in LDL [Mass/Vol] 152.0 mg/dL [facility] Comment on above: <100 mg/dl [id number] 0-129 mg/dl NEAR OR ABOVE [id number] mg/dl BORDERLINE [id number] mg/dl HIGH>190 mg/dl VERY HIGH Cholesterol in VLDL Calc [Ma ss/Vol]on 08-30-2023 Cholesterol in VLDL [Mass/Vol] 20.2 mg/dL [facility] Eosinophils/100 WBC Auto (Bl d)on 08-30-2023 Eosinophils/100 WBC (Bld) 4.2 % 0.9-7.[address] [facility] Erythrocyte distribution wid th Auto (RBC) [Ratio]on 08-30-2023 Erythrocyte distribution width (RBC) [Ratio] 13.4 % 11.0-15.[address] [facility] Estimated glomerular filtrat ion rate (GFR) non- Americanon 08-30-2023 GFR/1.73 sq M.predicted among non-blacks MDRD (S/P/Bld) [Vol rate/Area] 59 mL/min/{1.73_m2} >=[address] [facility] Globulin Calc (S) [Mass/Vol] on 08-30-2023 Globulin (S) [Mass/Vol] 3.4 g/dL [facility] Hematocrit Auto (Bld) [Volum e fraction]on 08-30-2023 Hematocrit (Bld) [Volume fraction] 39.5 % 36.0-48.[address] [facility] Hemoglobin [Mass/volume] in Bloodon 08-30-2023 Hemoglobin (Bld) [Mass/Vol] 12.5 g/dL 12.0-16.[address] [facility] Laboratory - Chemistry and C hemistry - challengeon 08-30-2023 Albumin [Mass/Vol] 3.7 g/dL 3.4-5.0 [facility] ALP [Catalytic activity/Vol] 45 U/L 46-[address] [facility] ALT [Catalytic activity/Vol] 23 U/L 14-[address] [facility] AST [Catalytic activity/Vol] 21 U/L 15-[address] [facility] Bilirubin [Mass/Vol] 0.4 mg/dL 0.2-1.0 [facility] Calcium [Mass/Vol] 9.0 mg/dL 8.5-10.1 [facility] Chloride [Moles/Vol] 106 mmol/L 98-107 [facility] Cholesterol [Mass/Vol] 246 mg/dL <=[address] [facility] Cholesterol in HDL [Mass/Vol] 74 mg/dL 40-[address] [facility] Comment on above: > or =60 mg/dl - LOW CARDIOVASCULAR RISK<40 mg/dl - HIGH CARDIOVASCULAR RISK CO2 [Moles/Vol] 25.5 mmol/L 21.0-32.0 [facility] Creatinine [Mass/Vol] 0.96 mg/dL 0.55-1.02 [facility] GFR/1.73 sq M.predicted MDRD (S/P/Bld) [Vol rate/Area] mL/min/{1.73_m2} >=[address] [facility] Glucose [Mass/Vol] 86 mg/dL 74-106 [facility] Potassium [Moles/Vol] 3.8 mmol/L 3.5-5.1 [facility] Protein [Mass/Vol] 7.1 g/dL 6.4-8.2 [facility] Sodium [Moles/Vol] 142 mmol/L 136-145 [facility] Triglyceride [Mass/Vol] 101 mg/dL <=[address] [facility] TSH Qn 1.531 m[IU]/L 0.358-3.[address] [facility] Urea nitrogen [Mass/Vol] 20.0 mg/dL 7.0-18.[address] [facility] Urea nitrogen/Creatinine [Mass ratio] 20.8 mg/mg [facility] Laboratory - Hematology and Cell countson 08-30-2023 ESR (Bld) [Velocity] 16 mm/h <=30 [facility] Immature granulocytes/100 WBC (Bld) 0.3 % 0.0-0.[address] [facility] Leukocytes [#/volume] correc fito for nucleated erythrocytes in Blood by Automated counon 08-30-2023 WBC corrected for nucl RBC Auto (Bld) [#/Vol] 3.8 10 3/uL 4.0-11.[address] [facility] Lymphocytes Auto (Bld) [#/Vo l]on 08-30-2023 Lymphocytes (Bld) [#/Vol] 1.7 10 3/uL 1.2-3.[address] [facility] Lymphocytes/100 WBC Auto (Bl d)on 08-30-2023 Lymphocytes/100 WBC (Bld) 44.8 % 20.5-60.[address] [facility] MCH Auto (RBC) [Entitic mass ]on 08-30-2023 MCH (RBC) [Entitic mass] 31.1 pg 26.7-34.[address] [facility] MCHC Auto (RBC) [Mass/Vol]on 08-30-2023 MCHC (RBC) [Mass/Vol] 31.6 g/dL 29.9-35.2 [facility] MCV Auto (RBC) [Entitic vol] on 08-30-2023 MCV (RBC) [Entitic vol] 98.3 fL 81.0-99.[address] [facility] Monocytes Auto (Bld) [#/Vol] on 08-30-2023 Monocytes (Bld) [#/Vol] 0.5 10 3/uL 0.3-0.[address] [facility] Monocytes/100 WBC Auto (Bld) on 08-30-2023 Monocytes/100 WBC (Bld) 14.1 % 1.7-12.[address] [facility] Neutrophils Auto (Bld) [#/Vo l]on 08-30-2023 Neutrophils (Bld) [#/Vol] 1.4 10 3/uL 1.4-6.[address] [facility] Neutrophils/100 WBC Auto (Bl d)on 08-30-2023 Neutrophils/100 WBC (Bld) 35.8 % 43.0-75.[address] [facility] No Panel Informationon 08-30 Eosinophils # (Auto) 0.2 10 3/uL 0.0-0.7 [facility] Immature Granulocyte # (Auto) 0.01 10 3/uL 0.00-0.[address] [facility] Platelet mean volume Auto (B ld) [Entitic vol]on 08-30-2023 Platelet mean volume (Bld) [Entitic vol] 9.1 fL 9.5-13.[address] [facility] Platelets Auto (Bld) [#/Vol] on 08-30-2023 Platelets (Bld) [#/Vol] 181 10 3/uL 150-[address] [facility] RBC Auto (Bld) [#/Vol]on RBC (Bld) [#/Vol] 4.02 10 6/uL 4.20-5.40 [facility] Serum or plasma albumin/glob ulin mass ratioon 08-30-2023 Albumin/Globulin [Mass ratio] 1.1 {ratio} [facility] Serum or plasma anion gap de terminationon 08-30-2023 Anion gap [Moles/Vol] 14.3 mmol/L [facility] Serum or plasma total choles terol/high density lipoprotein (HDL) cholesterol mass albina 08-30-2023 Cholesterol.total/Cho lesterol in HDL [Mass ratio] 3.3 {ratio} [facility] Comment on above: 3.3 - [...] No obvious fractures at the coracoid process. [facility] [employer] XR Shoulder - right 2 Viewso n 08-18-2023 Radiology Study observation (narrative) [facility] IntraOperative Documentson 1 IntraOperative Documents [id number]# 1.00CD:127 Normal [facility] Auto Diffon 04-07-2023 Basophils/100 WBC (Bld) 0.2 % Normal 0.0-2.0 [facility] Comment on above: Order Comment: Order Added by Discern Expert. Performed By: #### 2 034480, 3728004, 1643147, 8398497, 09662856, 0675463 #### [facility] [address] [place] [address] Basophils/Leukocytes Auto (Bld) [Pure # fraction] 0.0 E9/L Normal 0.0-0.2 [facility] Comment on above: Order Comment: Order Added by Discern Expert. Performed By: #### 2 550454, 2056375, 1502031, 3388926, 52010197, 1520623 #### [facility] [address] [place] [address] Eosinophils/100 WBC (Bld) 0.0 % Normal 0.0-8.0 [facility] Comment on above: Order Comment: Order Added by Discern Expert. Performed By: #### 2 365213, 2645037, 9841147, 2283594, 04573331, 1208160 #### [facility] [address] [place] [address] Eosinophils/Leukocyte s Auto (Bld) [Pure # fraction] 0.0 E9/L Normal 0.0-0.5 [facility] Comment on above: Order Comment: Order Added by Discern Expert. Performed By: #### 2 798340, 0904240, 4775479, 5652924, 54802680, 1777729 #### [facility] [address] [place] [address] Lymphocytes/100 WBC (Bld) 7.9 % Low 14.0-50.0 [facility] Comment on above: Order Comment: Order Added by Discern Expert. Performed By: #### 2 697550, 9856539, 6708546, 3932374, 07723598, 1099426 #### [facility] [address] [place] [address] Lymphocytes/Leukocyte s Auto (Bld) [Pure # fraction] 0.8 E9/L Low 1.0-4.0 [facility] Comment on above: Order Comment: Order Added by Discern Expert. Performed By: #### 2 555441, 4310323, 3452738, 9936133, 90957906, 8495367 #### [facility] [address] [place] [address] Monocytes/100 WBC (Bld) 14.0 % Normal 4.0-14.0 [facility] Comment on above: Order Comment: Order Added by Discern Expert. Performed By: #### 2 774074, 5449468, 4699517, 9342952, 98715210, 2173066 #### [facility] [address] [place] [address] Monocytes/Leukocytes Auto (Bld) [Pure # fraction] 1.3 E9/L High 0.2-1.0 [facility] Comment on above: Order Comment: Order Added by Discern Expert. Performed By: #### 2 869121, 4151173, 2382833, 0309230, 85308226, 1514364 #### [facility] [address] [place] [address] Neutrophils/100 WBC (Bld) 77.9 % High 36.0-75.0 [facility] Comment on above: Order Comment: Order Added by Discern Expert. Performed By: #### 2 376335, 1836689, 6899130, 1396776, 18275621, 5685003 #### [facility] [address] [place] [address] Neutrophils/Leukocyte s Auto (Bld) [Pure # fraction] 7.5 E9/L Normal 2.0-7.5 [facility] Comment on above: Order Comment: Order Added by Discern Expert. Performed By: #### 2 349833, 2775876, 5653572, 9247103, 17750660, 9214498 #### [facility] [address] [place] [address] BUNon 04-07-2023 Urea nitrogen [Mass/Vol] 20 mg/dL Normal 5-21 [facility] Comment on above: Performed By: #### 2 439059, 2834135, 6534486, 9876163, 33252405, 9191365 #### [facility] [address] [id number] CBC w/ Auto Diffon 3 Erythrocyte distribution width (RBC) [Ratio] 14.6 % High 10.9-14.2 [facility] Comment on above: Performed By: #### 2 610979, 6350631, 1252082, 3872585, 86778358, 9694504 #### [facility] [address] [place] [address] Hematocrit (Bld) [Volume fraction] 29.7 % Low 34.0-46.0 [facility] Comment on above: Performed By: #### 2 297856, 6299419, 2026383, 6987509, 33390357, 3239013 #### [facility] [address] [id number] Hemoglobin (Bld) [Mass/Vol] 10.0 g/dL Low 12.0-16.0 [facility] Comment on above: Performed By: #### 2 276013, 5322944, 6807590, 9244679, 84403888, 4679369 #### [facility] [address] [place] [address] MCH (RBC) [Entitic mass] 32.5 pg Normal 27.0-34.0 [facility] Comment on above: Performed By: #### 2 762173, 4838728, 2026145, 9313267, 06792964, 0160278 #### [facility] [address] [place] [address] MCHC (RBC) [Mass/Vol] 33.6 g/dL Normal 31.4-36.0 [facility] Comment on above: Performed By: #### 2 843470, 6535520, 7651264, 7260173, 67482689, 6566877 #### [facility] [address] [place] [address] MCV (RBC) [Entitic vol] 96.7 fL Normal 80.0-100.0 [facility] Comment on above: Performed By: #### 2 336684, 4782986, 0958105, 5079934, 28558849, 8341397 #### [facility] [address] [place] [address] Platelet mean volume (Bld) [Entitic vol] 7.1 fL Normal 6.4-10.8 [facility] Comment on above: Performed By: #### 2 776712, 4612471, 4632193, 3788738, 66725488, 0827731 #### [facility] [address] [id number] Platelets (Bld) [#/Vol] 215.0 E9/L Normal 150.0-500.0 [facility] Comment on above: Performed By: #### 2 313223, 3635737, 1207347, 0975724, 50940480, 0778083 #### [facility] [address] [place], [place] [address] RBC (Bld) [#/Vol] 3.1 E12/L Low 4.3-5.9 [facility] Comment on above: Performed By: #### 2 745706, 9704510, 5260338, 9709256, 35605810, 3196009 #### [facility] [address] [place], [place] [address] WBC corrected for nucl RBC Auto (Bld) [#/Vol] 9.6 E9/L Normal 4.0-11.0 [facility] Comment on above: Performed By: #### 2 354250, 7203620, 6653216, 1805405, 42143791, 9482584 #### [facility] [address] [place] [address] CHEMISTRYOrdered By: SYSTEM SYSTEM on 04-07-2023 Anion gap [Moles/Vol] 6 mmol/L Normal 6 - 16 mEq/L [facility] Remisol Chloride [Moles/Vol] 118 mmol/L High 101 - 1 11 mmol/L [facility] Remisol CO2 [Moles/Vol] 23 mmol/L Normal 21 - 31 mmol/L [facility] Remisol Creatinine [Mass/Vol] 0.9 mg/dL Normal 0.5 - 1.3 mg/dL [facility] Remisol GFR/1.73 sq M.predicted among non-blacks MDRD (S/P/Bld) [Vol rate/Area] 72 mL/min/1.73 m2 Normal >=59mL/min/1 .73 m2 [facility] Chem S Comment on above: Interpretive Data: C hronic kidney disease could be indicated at eGFR's of less than 60 mL/min/1.73m2. Kidney failure is indicated at less than 15 mL/min/1.73m2. Potassium [Moles/Vol] 4.0 mmol/L Normal 3.5 - 5.3 mmol/L [facility] Remisol Sodium [Moles/Vol] 143 mmol/L Normal 135 - 145 mmol/L [facility] Remisol Urea nitrogen [Mass/Vol] 20 mg/dL Normal 5 - 21 mg/dL [facility] Remisol Consent for Anesthesiaon Consent for Anesthesia [id number] .[id number]:127 Normal [facility] Creatinineon 04-07-2023 Creatinine [Mass/Vol] 0.9 mg/dL Normal 0.5-1.3 [facility] [facility] Comment on above: Performed By: #### 2 167056, 8255587, 0856916, 3632283, 64580579, 3378833 ####[facility] [address] [place] [address] Discharge Instructionson Discharge Instructions [id number]# 1.00CD:127 Normal [facility] Discharge Note-Nursingon Discharge Note-Nursing RADHA ZAIDI :1960 [...] Pending Diagnostic Test Results None Pharmacy Information [facility] New Follow Up Appointments after Discharge Follow Up with Jordan Yuan When: Where: [address] [place] [address]- Business (1) Follow Up with JOHN ASHBY When: In 0 days Where: [address] [place] [address]- Business (1) Medications What How Much When Instructions Next Dose Changed acetaminophen-oxycodo ne (Percocet 5 mg-325 mg oral tablet) See instructions 1-2 tab(s) Oral q4hr Pickup at [facility]/pharmacy #1577 Next dose due after 10am Unchanged buPROPion (Wellbutrin XL 300 mg/ 24 hours Tab-ER) 1 Tablets By Mouth 2 times a day 04/07/23 @ 9pm Unchanged celecoxib (CeleBREX 100 mg Cap) 1 Capsules By Mouth 2 times a day as needed for for pain Pickup at [facility]/pharmacy #6177 04/07/23 @ 9pm Unchanged cephalexin (Keflex 500 mg Cap) 1 Capsules By Mouth Every 8 hours Duration: 7 Days Pickup at [facility]/pharmacy #6177 04/07/23 @ 2pm and bedtime Unchanged docusate (Colace 100 mg Cap) 1 Capsules By Mouth 2 times a day as needed for for constipation Pickup at [facility]/pharmacy #6177 04/07/23 @ 9pm Unchanged [...] Every day 04/08/23 @ 9am Pharmacy Information [facility]/pharmacy #6177: [address] [place], [place] [phone] Test Results CBC BMP WBC: 9.6 E9/L [...] Lateralized/ 24, Shoulder Implant 04/06/2023 Univers revers Slater humeral Stem Size 9, Shoulder Implant 04/06/2023 UniversRevers SutureCap, 36 neutral, shoulder Implant 04/06/2023 universrevers Humeral Insert, small, 36, +6, Shoulder (more content not included)... Normal [facility] HEMATOLOGYOrdered By: SYSTEM SYSTEM on 04-07-2023 Basophils/100 [...] 9.6 E9/L Normal 4.0 - 11.0 E9/L [facility] HernandoAutoSS Inpatient Clinical Summaryon 04-07-2023 Inpatient Clinical Summary [address] [address] Clinical Summary Person Information: Name: RADHA ZAIDI Age: 62 Years : 1960 Sex: Female PCP: JOHN ASHBY DO Marital Status: Phone: [phone] Race: White Ethnicity: Non- or Language: Indonesian Visit Id: Visit Reason: OA RIGHT SHOULDER Speciality: Acuity: Enc Type: Observation Med Service: Medical Arrival: 04/06/2023 06:09:55 Discharge: Dispo Type: Address: [address] [place] [address] [address] [place] [id number] Provider Notes: Patient: RADHA ZAIDI Age: 62 [...] up: With: Address: When: [place] [address] Business (1) 04/19/2023 2:15 PM With: Address: When: JOHN ASHBY [address] [place], [place] [phone] Business (1) Patient Education Information: Levy Yuan. - Shoulder Replacement (Custom) [facility] Inpatient Patient Summaryon 04-07-2023 Inpatient Patient Summary [address] [address] Patient Discharge Instructions PERSON INFORMATION [...] up: With: Address: When: [place] [address] Business (1) 04/19/2023 2:15 PM With: Address: When: JOHN SYMONE [address] [facility] [place] [phone] Business (1) In the event that this [...] That Have Changed [facility], [address], [place] [phone], [phone] START: acetaminophen-oxycodo ne (Percocet 5 mg-325 mg oral tablet) 1-2 tab(s) Oral q4hr. Refills: 0. Last Dose: ____Next Dose: ____ STOP: acetaminophen-oxycodo ne (Percocet 5 mg-325 mg oral tablet) 1 Tablets By Mouth 3 times a day. Medications to Continue with No Changes [facility], [address], [place] [phone], [phone] celecoxib (CeleBREX 100 mg Cap) 1 Capsules [...] ELSIE Lu (419) (more content not included)... [facility] IntraOperative Documentson 0 04-07-2023 IntraOperative Documents [id number]#1 .00CD:127 [facility] IntraOperative Documents [id number]#1 .00CD:127 Normal [facility] Lyteson 04-07-2023 Anion gap [Moles/Vol] 6 mmol/L Normal 6-16 [facility] Comment on above: Performed By: #### 2 054846, 6097939, 6602532, 8192279, 24386754, 8026913 ####[facility] [address] [place] [address] Chloride [Moles/Vol] 118 mmol/L High 101-111 [facility] Comment on above: Performed By: #### 2 191898, 7433721, 3694107, 1723462, 49390852, 2322199 ####[facility] [address] [place] [address] CO2 [Moles/Vol] 23 mmol/L Normal 21-31 [facility] Comment on above: Performed By: #### 2 038239, 1547461, 2443404, 1296105, 86641910, 1987791 ####[facility] [address] [place] [address] Potassium [Moles/Vol] 4.0 mmol/L Normal 3.5-5.3 [facility] Comment on above: Performed By: #### 2 040104, 8747609, 9608787, 5436547, 03794765, 0894942 ####[facility] [address] [place] [address] Sodium [Moles/Vol] 143 mmol/L Normal 135-145 [facility] Comment on above: Performed By: #### 2 372961, 3620894, 5843831, 2149825, 53004944, 6922946 ####[facility] [address] [place] [address] Main OR Intraoperative Recor don 04-07-2023 Main OR Intraoperative Record IntraOp Document Type FT Summary Primary Physician: Jordan Yuan DO Finalized Date/Time: 04/07/23 14:30:58 Pt. Name: RADHA ZAIDI Gerardo/Sex: 1960 Female Med Rec #: [id number] Physician: Jordan Yuan DO Financial #: [id number] Pt. 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 Normal [facility] Main OR PACU I Recordon 03-12 Main OR PACU I Record PACU Phase I Docum ent Type FT Summary Primary Physician: Jordan Yuan DO Finalized Date/Time: 04/07/23 08:05:19 Pt. Name: RADHA ZAIDI/Sex: 1960 Female Med Rec #: [id number] Physician: Jordan Yuan DO Financial #: [id number] Pt. Type: O Room/Bed: N305/ Admit/Disch: 04/06/23 [...] Signed By: Cate Gonsales RN 04/07/23 08:04 Caet Gonsales RN 04/07/23 08:05 Normal [facility] Patient Education - Texton 0 04-07-2023 Patient Education - Text [place], [place] [facility] DISCHARGE INSTRUCTIONS: SHOULDER REPLACEMENT [...] of persistent vomiting. Jordan Yuan, [facility] [address] [place] [address] Reviewed: Normal [facility] Preoperative Documentson Preoperative Documents [id number]#1 .00CD:127 Normal [facility] Progress Note-Physicianon Progress Note-Physician Patient: RADHA ZAIDI [...] Pressure 63 mmHg SpO2 94 % Normal [facility] Comment on above: Result Comment: Elec tronically Signed By: Jordan Yuan DO\.br\Date and Time Signed: 04/07/23 07:40 EDT eGFRon 04-07-2023 GFR/1.73 sq M.predicted among non-blacks MDRD (S/P/Bld) [Vol rate/Area] 72 mL/min/1.73 m2 Normal >=59 [facility] Comment on above: Order Comment: Order added by Discern Expert. Result Comment: Quality Specialist dina kidney disease could be indicated at eGFR's of less than 60 mL/min/1.73m2. Kidney failure is indicated at less than 15 mL/min/1.73m2. Performed By: #### 2 656913, 3911538, 0721029, 0067368, 80524699, 7365979 ####[facility] [address] [place] [address] ABO/Rhon 04-06-2023 ABO/Rh Positive Invalid Interpretation Code [facility] Comment on above: Performed By: #### 1 2587174, 96857830, 89895685, 2711822 ####[facility] [address] [place] [address] ABO/Rh History Checkon 04-06 ABO/Rh History Check Verified Hx Blood Type Normal [facility] Comment on above: Performed By: #### 1 1035970, 21872236, 22932368, 5017867 ####[facility] [address] [place] [address] ABSCon 04-06-2023 ABSC Gel Interp Negative Normal [facility] Comment on above: Performed By: #### 1 1594773, 39529049, 12780054, 5107072 ####[facility] [address] [place] [address] BLOOD BANKOrdered By: Andra Nunez on 04-06-2023 ABO/Rh Interp Positive Invalid Interpretation Code [facility] BB Subsection ABSC Gel Interp Negative (04/06/23 7:23 AM) Normal [facility] BB Subsection Blood Bank ID#on 04-06-2023 BBID# [id number] Invalid Interpretation Code [facility] Comment on above: Performed By: #### 1 [id number], 01221111, 09270341, 1669428 ####[address] [place] [address] Consent for Treatmenton 03-12 Consent for Treatment [id number]#1 .00CD:127 Normal [facility] H&P Updateon 04-06-2023 H&P Update [id number]#1 .00CD:127 [facility] Insurance Correspondence Off iceon 04-06-2023 Insurance Correspondence Office [id number]# 1.00CD:127 Normal [facility] Main OR Preoperative Recordo n 04-06-2023 Main OR Preoperative Record PreOp Document Type FT Summary Primary Physician: Jordan Yuan DO Finalized Date/Time: 04/06/23 09:32:24 Pt. Name: RADHA ZAIDI/Sex: 1960 Female Med Rec #: [id number] Physician: Jordan Yuan DO Financial #: [id number] Pt. Type: A Room/Bed: Admit/Disch: 04/06/23 06:09:55 [...] By: Dennis Goldman RN 04/06/23 09:32 Normal [facility] Monitor Recordon 04-06-2023 Monitor Record [id number]# 1.00CD:127 Normal [facility] Monitor Record [id number]# 1.00CD:127 Normal [facility] Monitor Record [id number]# 1.00CD:127 Normal [facility] Operative Reporton Operative Report Patient: RADHA ZAIDI Age: 62 years Sex: Female : 1960 Associated Diagnoses: None Author: Jordan Yuan DO DATE OF SURGERY: 04/06/2023 SURGEON: Jordan Yuan D.O. POWER LINE INSTALLER: Anival Flores CFA PREOPERATIVE DIAGNOSIS: Massive rotator [...] 3. size +6 humeral insert 4. Revers Slater size 9 stem with 36 (neutral) Suturecup OPERATIVE INDICATIONS: Radha is a 62-year-old qsyjt-ppkd-jiliqauv female who has had persistent right shoulder [...] intraoperative instrumentation were performed with the Arthrex FriendCode software. PROCEDURE: The correct operative site was [...] The depth-stop (more content not included)... Normal [facility] Comment on above: Result Comment: Elec tronically [...] Using maximal sterile barrier technique per current [facility] guidelines including hand hygeine, Guidance (Ultrasound used [...] patient tolerated the procedure as expected. Normal [facility] Comment on above: Result Comment: Elec tronically Signed By: Yanick Rai DO\.br\Date and Time Signed: 04/06/23 08:44 EDT Progress Note-Physicianon Progress Note-Physician Patient: RADHA ZAIDI Age: 62 years Sex: Female : 1960 Associated Diagnoses: None Author: Yanick Rai DO Postoperative Information Postoperative disposition: Postoperative disposition: To PACU. Optimetrix number: Optimetrix number [id number]. Anesthetic utilized: General. Regional: Interscalene Block. Health [...] pain, # 60 cap(s), Refills(s) 0, Pharmacy: [facility]/pharmacy #6177, 160, cm, 03/25/23 6:16:00 EDT, Height/Length Dos (more content not included)... 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 Family History: Primary malignant neoplasm of prostate Father Acute myocardial infarction Mother Procedure history: Cervical laminectomy (1889744076). Amputation of finger (147836222). Removal of lung, Partial (42037). Open reduction and internal fixation of fracture Leg (564061856). Foot surgery (6998434233). Lumbar discectomy (790006370). Social History Social & Psychosocial Habits Alcohol [...] to auscultation. (more content not included)... Normal [facility] Comment on above: Result Comment: Elec tronically [...] mGy = na DAP = na Normal [facility] Consent for Procedure/Surger yon 04-05-2023 Consent for Procedure/Surgery [id number] .00CD:127 Normal [facility] CT Upper Extremity w/o Contr ast Righton [...] DO Transcribed by: DANISHA Technologist: CONSTANTINO Normal [facility] ABO/Rh Retypeon 03-24-2023 ABO/Rh Retype Interp Positive Invalid Interpretation Code [facility] Comment on above: Performed By: #### 1 [id number] ####[facility] [address] BLOOD BANKOrdered By: Andra Longoria on 03-24-2023 ABO/Rh Retype Interp Positive Invalid Interpretation Code [facility] BB Subsection BUNon 03-24-2023 Urea nitrogen [Mass/Vol] 28 mg/dL High 5-21 [facility] Comment on above: Performed By: #### 1 2703375, 2791074, 3257703, 4379589, 0810575, 6796480 ####[facility] [address] [place] [address] CBC w/Indiceson 03-24-2023 Erythrocyte distribution width (RBC) [Ratio] 14.5 % High 10.9-14.2 [facility] Comment on above: Performed By: #### 1 9574959, 2548512, 4908179, 9290810, 0022873, 8512423 ####[facility] [address] [place] [address] Hematocrit (Bld) [Volume fraction] 35.9 % Normal 34.0-46.0 [facility] Comment on above: Performed By: #### 1 8185066, 7462729, 0405649, 6803518, 3287024, 9519680 ####[facility] [address] [place] [address] Hemoglobin (Bld) [Mass/Vol] 11.9 g/dL Low 12.0-16.0 [facility] Comment on above: Performed By: #### 1 1934471, 7430368, 5727319, 2569870, 5215977, 6242039 ####[address] [place] [address] MCH (RBC) [Entitic mass] 32.3 pg Normal 27.0-34.0 [facility] Comment on above: Performed By: #### 1 6139572, 9565817, 9979543, 0298605, 6868972, 3751749 ####[address] [address] MCHC (RBC) [Mass/Vol] 33.1 g/dL Normal 31.4-36.0 [facility] Comment on above: Performed By: #### 1 0628864, 3435809, 7565281, 5578866, 2925910, 6069260 ####[address] [address] MCV (RBC) [Entitic vol] 97.4 fL Normal 80.0-100.0 [facility] Comment on above: Performed By: #### 1 2762685, 1569887, 9366317, 9773479, 6625456, 7806891 ####[address] [address] Platelet mean volume (Bld) [Entitic vol] 7.4 fL Normal 6.4-10.8 [facility] Comment on above: Performed By: #### 1 9128225, 8244978, 4071879, 4325402, 1430255, 1221738 ####[address] [address] Platelets (Bld) [#/Vol] 207.0 E9/L Normal 150.0-500.0 [facility] Comment on above: Performed By: #### 1 1288360, 4379164, 6924847, 1637136, 5531357, 2439660 ####[facility] [address] [place] [address] RBC (Bld) [#/Vol] 3.7 E12/L Low 4.3-5.9 [facility] Comment on above: Performed By: #### 1 8776471, 4630977, 9033007, 7935016, 7699176, 4809364 ####[facility] [address] [place] [address] WBC corrected for nucl RBC Auto (Bld) [#/Vol] 3.5 E9/L Low 4.0-11.0 [facility] Comment on above: Performed By: #### 1 3801301, 6402680, 6575787, 5488177, 7730941, 7781057 ####[facility] [address] [place] [address] CHEMISTRYOrdered By: SYSTEM SYSTEM on 03-24-2023 Anion gap [Moles/Vol] 12 mmol/L Normal 6 - 16 mEq/L F [facility] Remisol Chloride [Moles/Vol] 111 mmol/L Normal 101 - 1 11 mmol/L [facility] Remisol CO2 [Moles/Vol] 20 mmol/L Low 21 - 31 mmol/L [facility] Remisol Creatinine [Mass/Vol] 1.2 mg/dL Normal 0.5 - 1.3 mg/dL [facility] Remisol GFR/1.73 sq M.predicted among non-blacks MDRD (S/P/Bld) [Vol rate/Area] 51 mL/min/1.73 m2 Low >=59mL/min/1 .73 m2 [facility] Chem S Glucose [Mass/Vol] 84 mg/dL Normal 55 - 199 mg/dL FT Remisol Potassium [Moles/Vol] 4.2 mmol/L Normal 3.5 - 5.3 mmol/L FT Remisol Sodium [Moles/Vol] 139 mmol/L Normal 135 - 145 mmol/L FT Remisol Urea nitrogen [Mass/Vol] 28 mg/dL High 5 - 21 mg/dL [facility] Remisol Consent for Treatmenton 03-11 Consent for Treatment [id number] .00CD:127 Normal [facility] Creatinineon 03-24-2023 Creatinine [Mass/Vol] 1.2 mg/dL Normal 0.5-1.3 [facility] Comment on above: Performed By: #### 1 2583384, 7672221, 9932654, 6286440, 6391634, 3568038 ####[facility] [address] [place] [address] Glucoseon 03-24-2023 Glucose [Mass/Vol] 84 mg/dL Normal 55-199 [facility] Comment on above: Performed By: #### 1 9681320, 3580151, 1646069, 2943655, 6444464, 0191548 ####[facility] [address] [place] [address] HEMATOLOGYOrdered By: Andra Longoria on 03-24-2023 Erythrocyte [...] 3.5 E9/L Low 4.0 - 11.0 E9/L [facility] HemeAutoSS Lyteson 03-24-2023 Anion gap [Moles/Vol] 12 mmol/L Normal 6-16 [facility] Comment on above: Performed By: #### 1 3041310, 6255993, 1165077, 5769791, 8749215, 7391656 ####[facility] [address] [place] [address] Chloride [Moles/Vol] 111 mmol/L Normal 101-111 [facility] Comment on above: Performed By: #### 1 8336961, 0000721, 1713081, 9237832, 8777085, 7497928 ####[facility] [address] [place] [address] CO2 [Moles/Vol] 20 mmol/L Low 21-31 [facility] Comment on above: Performed By: #### 1 2605592, 3424622, 6023727, 3696689, 3873360, 8735502 ####[facility] [address] [place] [address] Potassium [Moles/Vol] 4.2 mmol/L Normal 3.5-5.3 [facility] Comment on above: Performed By: #### 1 0306058, 7307010, 2441144, 0717452, 3379800, 3085678 ####[facility] [address] [place] [address] Sodium [Moles/Vol] 139 mmol/L Normal 135-145 [facility] Comment on above: Performed By: #### 1 6664404, 1388272, 3759777, 5966814, 5476778, 5887050 ####[facility] [address] [place] [address] UA With Cult Reflexon 2022 Bilirubin Ql (U) Negative Normal Negative [facility] Comment on above: Performed By: #### 1 5029610 #### [facility] [address] [place] [address] Clarity (U) CLEAR Normal Clear [facility] Comment on above: Performed By: #### 1 1031453 #### [facility] [address] [place] [address] Color (U) YELLOW Normal Yellow [facility] Comment on above: Performed By: #### 1 3650175 #### [facility] [address] [place] [address] Epithelial cells.squamous LM.HPF (Urine sed) [#/Area] 0-2 Normal 0-2 [facility] Comment on above: Performed By: #### 1 5943638 #### [facility] [address] [place] [address] Fine Granular Casts LM Ql (Urine sed) 0-3 Normal [facility] Comment on above: Performed By: #### 1 3033442 #### [facility] [address] [place] [address] Glucose Test strip (U) [Mass/Vol] Negative Normal Negative [facility] Comment on above: Performed By: #### 1 3161991 #### [facility] [address] [place] [address] Hemoglobin Ql (U) Negative Normal Negative [facility] Comment on above: Performed By: #### 1 3030870 #### [facility] [address] [place] [address] Ketones (U) [Mass/Vol] Negative Normal Negative [facility] Comment on above: Performed By: #### 1 1707845 #### [facility] [address] [place] [address] Torrey.plasma/Lithiu m.RBC (Bld) [Mass ratio] 0-3 Normal 0-3 [facility] Comment on above: Performed By: #### 1 8763234 #### [facility] [address] [place] [address] Mucus Ql (Urine sed) TRACE Normal [facility] Comment on above: Performed By: #### 1 8960679 #### [facility] [address] [place] [address] Nitrite Ql (U) Negative Normal Negative [facility] Comment on above: Performed By: #### 1 5073073 #### [facility] [address] [place] [address] pH (U) 6.0 [pH] Invalid Interpretation Code 5.0-9.0 [facility] Comment on above: Performed By: #### 1 0843845 #### [facility] [address] [place] [address] Protein (U) [Mass/Vol] Negative Normal Negative [facility] Comment on above: Performed By: #### 1 7778233 #### [facility] [address] [place] [address] Specific gravity (U) [Rel density] >=1.030 Invalid Interpretation Code 1.005-1.030 [facility] Comment on above: Performed By: #### 1 5280866 #### [facility] [address] [place] [address] Type of Urine collection method Clean Catch Normal [facility] Comment on above: Performed By: #### 1 5606890 #### [facility] [address] [place] [address] Urobilinogen Qn (U) 0.2 {Rajwinder'U}/dL Normal 0.0-1.0 [facility] Comment on above: Performed By: #### 1 1345018 #### [facility] [address] [place] [address] WBC Auto Ql (U) Negative Normal Negative [facility] Comment on above: Performed By: #### 1 9810900 #### [facility] [address] [place] [address] WBC LM.HPF (Urine sed) [#/Area] 0-5 Normal 0-5 [facility] Comment on above: Performed By: #### 1 1916966 #### [facility] [address] [place] [address] URINALYSISOrdered By: Indira calix on 03-24-2023 Bilirubin [...] PM) Normal Negative [facility] UA Auto SS Torrey.plasma/Lithiu m.RBC (Bld) [Mass ratio] 0-3 /HPF Normal [...] [facility] UA Auto SS Urobilinogen Qn (U) 0.0597425 {Rajwinder'U}/dL Normal 0.0 - 1.0 EU/dL [facility] UA Auto SS WBC Auto Ql (U) Negative (03/24/23 3:05 PM) Normal Negative [facility] UA Auto SS WBC LM.HPF (Urine sed) [#/Area] 0-5 /HPF Normal 0-5/HPF [facility] UA Auto SS XR Chest 2 Viewson [...] (Electronic Signature): 03/24/2023 3:30 pm Signed by: Jyason Kemp M.D. Transcribed by: DANISHA Technologist: CONSTANTINO Technical Comments Radiation Dose: Ka,r in mGy = na DAP = na Normal [facility] eGFRon 03-24-2023 GFR/1.73 sq M.predicted among non-blacks MDRD (S/P/Bld) [Vol rate/Area] 51 mL/min/1.73 m2 Low >=59 [facility] Comment on above: Order Comment: Order added by Discern Expert. Result Comment: Quality Specialist dina kidney disease could be indicated at eGFR's of less than 60 mL/min/1.73m2. Kidney failure is indicated at less than 15 mL/min/1.73m2. Performed By: #### 1 [id number], [id number], [id number], [id number], [id number] ####[facility] [address] [place] [address] Physician Orderon 03-23-2023 Physician Order [id number]. [id number]:[id number] Normal [facility] XR SHOULDER RT 2V or >on XR [...] VANDANA YUAN Date: 2022-10-07 22:08 Normal [facility] CBC AUTO DIFFon 09-16-2022 BASO # 0.0 103/ul Normal 0.0-0.1 [facility] Comment on above: Performed By: #### C BC ####[facility] [address] [place] [address]Dr. Andrade Alvarado Basophils/100 WBC (Bld) 0.5 % Normal 0.2-2.0 [facility] Comment on above: Performed By: #### C BC ####[facility] [address] [place], [place] [address]DrMehreen Alvarado EO # 0.1 103/ul Normal 0.0-0.7 [facility] Comment on above: Performed By: #### C BC ####[facility] [address]oc[address] [place] [address]Dr. Andrade Alvarado Eosinophils/100 WBC (Bld) 2.3 % Normal 0.9-7.0 [facility] Comment on above: Performed By: #### C BC ####[facility] Pqtbpyp[address] [place], [place] [address]DrMehreen Alvarado Erythrocyte distribution width (RBC) [Ratio] 13.7 % Normal 11.0-15.0 [facility] Comment on above: Performed By: #### C BC ####[facility] [address]zrqrrc[address] [place], [place] [address]DrMehreen Alvarado Hematocrit (Bld) [Volume fraction] 32.8 % Critically low 36.0-48.0 [facility] Comment on above: Performed By: #### C BC ####[facility] [address]bmwz[address] [place] [address]Dr. Andrade Alvarado Hemoglobin (Bld) [Mass/Vol] 10.9 g/dL Critically low 12.0-16.0 [facility] Comment on above: Performed By: #### C BC ####[facility] [address]ke[address] [place] [address]Dr. Andrade Alvarado IG # 0.02 10e3/ul Normal 0.00-0.03 [facility] Comment on above: Performed By: #### C BC ####[facility] Aobpyjktlx[address] [place], [place] [address]Dr. Kellengregory Christiano IG % 0.5 % Normal 0.0-0.5 [facility] Comment on above: Performed By: #### C BC ####[facility] Timwermrvs[address] [place], [place] [address]Dr. Andrade Alvarado LYMPH # 1.6 103/ul Normal 1.2-3.8 [facility] Comment on above: Performed By: #### C BC ####[facility] Dsnbkfhyou[address] [place], [place] [address]Dr. Andrade Alvarado Lymphocytes/100 WBC (Bld) 41.8 % Normal 20.5-60.0 [facility] Comment on above: Performed By: #### C BC ####[facility] Yjkcnsckxk[address] [place], [place] [address]Dr. Andrade Alvarado MANUAL DIFF REQ NO Normal [facility] Comment on above: Performed By: #### C BC ####[facility] Epzaihvara[address] [place], [place] [address]Dr. Andrade Alvarado MCH (RBC) [Entitic mass] 31.9 pg Normal 26.7-34.0 [facility] Comment on above: Performed By: #### C BC ####[facility] Tltrjthvmx14[address] [place], [place] [address]Dr. Andrade Alvarado MCHC (RBC) [Mass/Vol] 33.2 g/dL Normal 29.9-35.2 [facility] Comment on above: Performed By: #### C BC ####[facility] [address] [place] [address]Dr. Andrade Alvarado MCV (RBC) [Entitic vol] 95.9 fL Normal 81.0-99.0 [facility] Comment on above: Performed By: #### C BC ####[facility] Xmwoklrbbp9[address] [place] [address]Dr. Andrade Alvarado MONO # 0.5 103/ul Normal 0.3-0.8 [facility] Comment on above: Performed By: #### C BC ####[facility] Tzhwrbbmub[address] [place] [address]Dr. Andrade Christiano Monocytes/100 WBC (Bld) 13.1 % Critically high 1.7-12.0 [facility] Comment on above: Performed By: #### C BC ####[facility] Vjmikbtspb[address] [place], [place] [address]Dr. Andrade Alvarado NEUT # 1.6 103/ul Normal 1.4-6.5 [facility] Comment on above: Performed By: #### C BC ####[facility] Xrjehjnjvn49[address] [place] [address]Dr. Andrade Alvarado Neutrophils/100 WBC (Bld) 41.8 % Critically low 43.0-75.0 [facility] Comment on above: Performed By: #### C BC ####[facility] Xnxguzoyes[address] [place], [place] [id number]. Andrade Christiano Platelet mean volume (Bld) [Entitic vol] 8.8 fL Critically low 9.5-13.5 [facility] Comment on above: Performed By: #### C BC ####[facility] Wsotropkqg[address] [place], [place] [id number]. Andrade Christiano PLT 219 103/ul Normal 150-450 [facility] Comment on above: Performed By: #### C BC ####[facility] Ehnwicodtq37[address] [place] [address]Dr. Andrade Christiano RBC 3.42 106/ul Critically low 4.20-5.40 [facility] Comment on above: Performed By: #### C BC ####[facility] V[address]jnigbay[address] [place] [address]Dr. Andrade Alvarado WBC 3.9 103/ul Critically low 4.0-11.0 The [facility] Comment on above: Performed By: #### C BC ####[facility] Lahvaskxtn[address] [place] [address]Dr. Andrade Alvarado FERRITINon 09-16-2022 Ferritin [Mass/Vol] 292.0 ng/mL Critically high 8.0-252.0 [facility] Comment on above: Performed By: #### F ERR, B12FOL, FETIBC #### [facility] [address] [address] [address] Andrade Alvarado IRON AND TIBCon 09-16-2022 % SATURATION 76.2 % Normal [facility] Comment on above: Performed By: #### F ERR, B12FOL, FETIBC #### [facility] [address] [address] [address] Andrade Alvarado Iron [Mass/Vol] 259.0 ug/dL Critically high 50.0-170.0 [facility] Comment on above: Performed By: #### F ERR, B12FOL, FETIBC #### [facility] [address] [address] [address] Andrade Alvarado TIBC DIRECT 340.0 ug/dL Normal 250.0-450.0 [facility] Comment on above: Performed By: #### F ERR, B12FOL, FETIBC #### [facility] [address] [address] [address] Andrade Alvarado PROF 14(COMP METB)on 023 Albumin [Mass/Vol] 4.0 g/dL Normal 3.4-5.[address] [facility] Comment on above: Performed By: #### C MP ####[facility] L[address]dczky[address] [place] [address]Dr. Andrade Alvarado Albumin/Globulin [Mass ratio] 1.3 {ratio} Normal [facility] Comment on above: Performed By: #### C MP ####[facility] Bioprjmxxn33[address] [place] [address]Dr. Andrade Alvarado ALP [Catalytic activity/Vol] 47 U/L Normal 46-116 [facility] Comment on above: Performed By: #### C MP ####[facility] Qdiclygokj9[address] [place] [address]Dr. Andrade Alvarado ALT [Catalytic activity/Vol] 23 U/L Normal 14-59 [facility] Comment on above: Performed By: #### C MP ####[facility] Serprapbys[address] [place] [address]Dr. Andrade Alvarado Anion gap [Moles/Vol] 12.1 mmol/L Normal e [facility] Comment on above: Performed By: #### C MP ####[facility] Nfqafsxqlr[address] [place] [address]Dr. Andrade Alvarado AST [Catalytic activity/Vol] 23 U/L Normal 15-37 [facility] Comment on above: Performed By: #### C MP ####[facility] Vqwbgigxtn[address] [place], [place] [address]Dr. Andrade Alvarado Bilirubin [Mass/Vol] 0.4 mg/dL Normal 0.2-1.0 [facility] Comment on above: Performed By: #### C MP ####[facility] Fmkhqxqdpn[address] [place] [address]Dr. Andrade Alvarado Calcium [Mass/Vol] 9.3 mg/dL Normal 8.5-10.[address] [facility] Comment on above: Performed By: #### C MP ####[facility] Ultwobgkmd119[address] [place] [address]Dr. Andrade Alvarado Chloride [Moles/Vol] 108 mmol/L Critically high 98-107 [facility] Comment on above: Performed By: #### C MP ####[facility] Qkgxmbgixl[address] [place] [address]Dr. Andrade Alvarado CO2 [Moles/Vol] 26.9 mmol/L Normal 21.0-32.0 [facility] Comment on above: Performed By: #### C MP ####[facility] Zyxkrmyymo[address] [place] [address]Dr. Andrade Christiano Creatinine [Mass/Vol] 0.87 mg/dL Normal 0.55-1.02 [facility] Comment on above: Performed By: #### C MP ####[facility] Bfuupxiynv[address] [place] [address]Dr. Andrade Christiano EGFR-AF TUVALUAN >60 Normal >=60 [facility] Comment on above: Performed By: #### C MP ####[facility] Qqecqnfiln[address] [place] [address]Dr. Andrade Alvarado EGFR-NON AF TUVALUAN >60 Normal >=60 [facility] Comment on above: Performed By: #### C MP ####[facility] Nzlsvrtffe[address] [place], [place] [address]Dr. Andrade Alvarado Globulin (S) [Mass/Vol] 3.0 g/dL Normal [facility] Comment on above: Performed By: #### C MP ####[facility] Nklvjhukgb[address] [place], [place] [address]Dr. Andrade Alvarado Glucose [Mass/Vol] 102 mg/dL Normal 74-[address] [facility] Comment on above: Performed By: #### C MP ####[facility] Ktialfmgfh[address] [place], [place] [address]Dr. Andrade Alvarado Potassium [Moles/Vol] 4.0 mmol/L Normal 3.5-5.1 [facility] Comment on above: Performed By: #### C MP ####[facility] Nugobltxbi[address] [place], [place] [address]Dr. Andrade Alvarado Protein [Mass/Vol] 7.0 g/dL Normal 6.4-8.[address] [facility] Comment on above: Performed By: #### C MP ####[facility] Lydxxnexmb[address] [place], [place] [address]Dr. Andrade Alvarado Sodium [Moles/Vol] 143 mmol/L Normal 136-[address] [facility] Comment on above: Performed By: #### C MP ####[facility] Naijubbmde18[address] [place], [place] [address]Dr. Andrade Alvarado Urea nitrogen [Mass/Vol] 25.0 mg/dL Critically high 7.0-18.0 [facility] Comment on above: Performed By: #### C MP ####[facility] Yzhghiowvf[address] [place] [address]Dr. Andrade Alvarado Urea nitrogen/Creatinine [Mass ratio] 28.7 mg/mg Normal [facility] Comment on above: Performed By: #### C MP ####[facility] Msvpcposvz[address] [place] [address]Dr. Andrade Alvarado SED RATE WESTERGRENon 2022 SED RATE 11 mm/hr Normal <=30 [facility] Comment on above: Performed By: #### S EDR ####[facility] Awkxkveemb[address] [place] [address]DrMehreen Alvarado VIT B12 AND FOLATEon 023 Cobalamin (Vitamin B12) [Mass/Vol] 249.0 pg/mL Normal 193.0-986.0 [facility] Comment on above: Performed By: #### F ERR, B12FOL, FETIBC #### [facility] [address] [address] [address] Andrade Alvarado FOLATE 14.00 ng/mL Normal 8.60-58.90 [facility] Comment on above: Performed By: #### F ERR, B12FOL, FETIBC #### [facility] [address] [address] [address] Andrade Alvarado MAMM SCREEN 3D BRENNA CADon 2022 MG MAMM SCREEN 3D BRENNA CAD Patient: RADHA ZAIDI Exam Date: 2022 : 1960 Gender:F Ordering : DR JOHN ASHBY D.O. Admission #: [id number] Family : Order #: [id number] CLICK HERE TO VIEW EXAM RADIOLOGY REPORT [...] prostate cancer at age 72. LOCATION: [facility] BREAST COMPOSITION: Scattered areas fibroglandular density. FINDINGS: [...] M.D. on 06/09/2022 at 15:30 Normal [facility] CBC AUTO DIFFon 05-20-2022 BASO # 0.0 103/ul Normal 0.0-0.1 [facility] Comment on above: Performed By: #### C BC ####[facility] Razdlnqpzx[address] [place], [place] [address]DrMehreen Alvarado Basophils/100 WBC (Bld) 1.0 % Normal 0.2-2.0 [facility] Comment on above: Performed By: #### C BC ####[facility] Fvyfmapplr[address] [place], [place] [address]DrMehreen Alvarado EO # 0.1 103/ul Normal 0.0-0.7 [facility] Comment on above: Performed By: #### C BC ####[facility] Jkkhidswcq[address] [place], [place] [address]DrMehreen Alvarado Eosinophils/100 WBC (Bld) 2.5 % Normal 0.9-7.0 [facility] Comment on above: Performed By: #### C BC ####[facility] Wrimleivfr[address] [place], [place] [address]DrMehreen Alvarado Erythrocyte distribution width (RBC) [Ratio] 13.0 % Normal 11.0-15.0 [facility] Comment on above: Performed By: #### C BC ####[facility] Jglkfynhyn[address] [place], [place] [address]DrMehreen Alvarado Hematocrit (Bld) [Volume fraction] 34.9 % Critically low 36.0-48.0 [facility] Comment on above: Performed By: #### C BC ####[facility] Effiwrbrrv[address] [place] [address]Dr. Andrade Alvarado Hemoglobin (Bld) [Mass/Vol] 11.6 g/dL Critically low 12.0-16.0 [facility] Comment on above: Performed By: #### C BC ####[facility] Yxtdczworu58[address] [place], [place] [address]Dr. Andrade Alvarado IG # 0.02 10e3/ul Normal 0.00-0.03 [facility] Comment on above: Performed By: #### C BC ####[facility] [address]rnapdchh[address] [place], [place] [address]Dr. Andrade Alvarado IG % 0.5 % Normal 0.0-0.5 [facility] Comment on above: Performed By: #### C BC ####[facility] Yneruswlen[address] [place], [place] [address]Dr. Andrade Alvarado LYMPH # 1.9 103/ul Normal 1.2-3.8 [facility] Comment on above: Performed By: #### C BC ####[facility] Iqyymtwkxd[address] [place], [place] [address]Dr. Kellengregory Alvarado Lymphocytes/100 WBC (Bld) 46.1 % Normal 20.5-60.0 [facility] Comment on above: Performed By: #### C BC ####[facility] Qqbncmrvou9317[address] [place], [place] [address]Dr. Andrade Alvarado MANUAL DIFF REQ NO Normal [facility] Comment on above: Performed By: #### C BC ####[facility] Brxnofvhzi137[address] [place], [place] [address]Dr. Andrade Alvarado MCH (RBC) [Entitic mass] 32.3 pg Normal 26.7-34.0 [facility] Comment on above: Performed By: #### C BC ####[facility] Ealibnqjcg349[address] [place], [place] [address]Dr. Andrade Alvarado MCHC (RBC) [Mass/Vol] 33.2 g/dL Normal 29.9-35.2 [facility] Comment on above: Performed By: #### C BC ####[facility] R[address]hnwxuteu[address] [place] [address]DrMehreen Andrade Alvarado MCV (RBC) [Entitic vol] 97.2 fL Normal 81.0-99.0 [facility] Comment on above: Performed By: #### C BC ####[facility] Epdifaekpt[address] [place], [place] [address]DrMehreen Alvarado MONO # 0.5 103/ul Normal 0.3-0.8 [facility] Comment on above: Performed By: #### C BC ####[facility] Munxjyidqo954[address] [place], [place] [address]DrMehreen Kellengregory Alvarado Monocytes/100 WBC (Bld) 13.5 % Critically high 1.7-12.0 [facility] Comment on above: Performed By: #### C BC ####[facility] Bxxpikvaib[address] [place], [place] [address]DrMehreen Alvarado NEUT # 1.5 103/ul Normal 1.4-6.5 [facility] Comment on above: Performed By: #### C BC ####[facility] Xexezdkesi[address] [place], [place] [address]DrMehreen Alvarado Neutrophils/100 WBC (Bld) 36.4 % Critically low 43.0-75.0 [facility] Comment on above: Performed By: #### C BC ####[facility] Lepqvgfgti[address] [place], [place] [address]DrMehreen Alvarado Platelet mean volume (Bld) [Entitic vol] 8.9 fL Critically low 9.5-13.5 [facility] Comment on above: Performed By: #### C BC ####[facility] Muszbnquwo[address] [place], [place] [address]DrMehreen Alvarado PLT 237 103/ul Normal 150-450 [facility] Comment on above: Performed By: #### C BC ####[facility] Tvgovvtvam[address] [place], [place] [address]DrMehreen Alvarado RBC 3.59 106/ul Critically low 4.20-5.40 [facility] Comment on above: Performed By: #### C BC ####[facility] Netjltyjet87[address] [place] [address]Dr. Andrade Alvarado WBC 4.0 103/ul Normal 4.0-11.0 [facility] Comment on above: Performed By: #### C BC ####[facility] Bnkpkgvnpo0[address] [place] [address]Dr. Andrade Alvarado CRPon 05-20-2022 CRP [Mass/Vol] mg/L Normal <=1.0 [facility] Comment on above: Performed By: #### C MP, CRP, TSH ####[facility] Zudsevdluy[address] [place] [id number]. Andrade Alvarado PROF 14(COMP METB)on 022 Albumin [Mass/Vol] 4.2 g/dL Normal 3.4-5.[address] [facility] Comment on above: Performed By: #### C MP, CRP, TSH #### [facility] [address] [address] [address] Andrade Alvarado Albumin/Globulin [Mass ratio] 1.3 {ratio} Normal [facility] Comment on above: Performed By: #### C MP, CRP, TSH #### [facility] [address] [address] [address] Andrade Alvarado ALP [Catalytic activity/Vol] 50 U/L Normal 46-116 [facility] Comment on above: Performed By: #### C MP, CRP, TSH #### [facility] [address] [address] [address] Andrade Alvarado ALT [Catalytic activity/Vol] 23 U/L Normal 14-59 [facility] Comment on above: Performed By: #### C MP, CRP, TSH #### [facility] [address] [address] [address] Andrade Alvarado Anion gap [Moles/Vol] 11.3 mmol/L Normal [facility] Comment on above: Performed By: #### C MP, CRP, TSH #### [facility] [address] [address] [address] Andrade Alvarado AST [Catalytic activity/Vol] 23 U/L Normal 15-37 [facility] Comment on above: Performed By: #### C MP, CRP, TSH #### [facility] [address] [address] [address] Andrade Alvarado Bilirubin [Mass/Vol] 0.5 mg/dL Normal 0.2-1.0 [facility] Comment on above: Performed By: #### C MP, CRP, TSH #### [facility] [address] [address] [address] Andrade Alvarado Calcium [Mass/Vol] 9.3 mg/dL Normal 8.5-10.[address] [facility] Comment on above: Performed By: #### C MP, CRP, TSH #### [facility] [address] [address] [address] Andrade Alvarado Chloride [Moles/Vol] 104 mmol/L Normal 98-107 [facility] Comment on above: Performed By: #### C MP, CRP, TSH #### [facility] [address] [address] [address] Andrade Alvarado CO2 [Moles/Vol] 27.2 mmol/L Normal 21.0-32.0 [facility] Comment on above: Performed By: #### C MP, CRP, TSH #### [facility] [address] [address] [address] Andrade Alvarado Creatinine [Mass/Vol] 0.99 mg/dL Normal 0.55-1.02 [facility] Comment on above: Performed By: #### C MP, CRP, TSH #### [facility] [address] [address] [address] Andrade Alvarado EGFR-AF TUVALUAN >60 Normal >=60 [facility] Comment on above: Performed By: #### C MP, CRP, TSH #### [facility] [address] [address] [address] Andrade Alvarado EGFR-NON AF TUVALUAN 57 mL/min/1.73m2 Critically low >=60 [facility] Comment on above: Performed By: #### C MP, CRP, TSH #### [facility] [address] [address] [address] Andrade Alvarado Globulin (S) [Mass/Vol] 3.3 g/dL Normal [facility] Comment on above: Performed By: #### C MP, CRP, TSH #### [facility] [address] [address] [address] Andrade Alvarado Glucose [Mass/Vol] 97 mg/dL Normal 74-[address] [facility] Comment on above: Performed By: #### C MP, CRP, TSH #### [facility] [address] [place] [address] Dr. Andrade Alvarado Potassium [Moles/Vol] 3.5 mmol/L Normal 3.5-5.1 [facility] Comment on above: Performed By: #### C MP, CRP, TSH #### [facility] [address] [place] [address] Dr. Andrade Alvarado Protein [Mass/Vol] 7.5 g/dL Normal 6.4-8.[address] [facility] Comment on above: Performed By: #### C MP, CRP, TSH #### [facility] [address] [place] [address] Dr. Andrade Alvarado Sodium [Moles/Vol] 139 mmol/L Normal 136-[address] [facility] Comment on above: Performed By: #### C MP, CRP, TSH #### [facility] [address] [place] [address] Dr. Andrade Alvarado Urea nitrogen [Mass/Vol] 22.0 mg/dL Critically high 7.0-18.0 [facility] Comment on above: Performed By: #### C MP, CRP, TSH #### [facility] [address] [place] [address] Dr. Andrade Alvarado Urea nitrogen/Creatinine [Mass ratio] 22.2 mg/mg Normal [facility] Comment on above: Performed By: #### C MP, CRP, TSH #### [facility] [address] [place] [address] Dr. Andrade Alvarado SED RATE WESTERGRENon 2021 SED RATE 22 mm/hr Normal <=30 [facility] Comment on above: Performed By: #### S EDR ####[facility] [address] [place] [address]Dr. Andrade Alvarado TSHon 05-20-2022 TSH 1.373 uIU/mL Normal 0.358-3.740 [facility] Comment on above: Performed By: #### C MP, CRP, TSH #### [facility] [address] [address] [address] Andrade Alvarado CBC AUTO DIFFon 02-16-2022 BASO # 0.0 103/ul Normal 0.0-0.1 [facility] Comment on above: Performed By: #### C BC ####[facility] [address]xti[address] [place] [address]DrMehreen Alvarado Basophils/100 WBC (Bld) 0.9 % Normal 0.2-2.0 [facility] Comment on above: Performed By: #### C BC ####[facility] [address]okgdbdb[address] [place] [address]DrMehreen Alvarado EO # 0.1 103/ul Normal 0.0-0.7 [facility] Comment on above: Performed By: #### C BC ####[facility] [address]qbiehjs[address] [place] [address]Dr. Andrade Alvarado Eosinophils/100 WBC (Bld) 2.3 % Normal 0.9-7.0 [facility] Comment on above: Performed By: #### C BC ####[facility] [address]zvo[address]ss[address] [place] [address]DrMehreen Alvarado Erythrocyte distribution width (RBC) [Ratio] 12.6 % Normal 11.0-15.0 [facility] Comment on above: Performed By: #### C BC ####[facility] [address]vhqpbkf[address] [place] [address]DrMehreen Alvarado Hematocrit (Bld) [Volume fraction] 37.8 % Normal 36.0-48.0 [facility] Comment on above: Performed By: #### C BC ####[facility] Srnhzedmly[address] [place] [id number]. Andrade Alvarado Hemoglobin (Bld) [Mass/Vol] 12.3 g/dL Normal 12.0-16.0 [facility] Comment on above: Performed By: #### C BC ####[facility] Sl[address]reyfnm[address] [place] [id number]. Andrade Alvarado IG # 0.02 10e3/ul Normal 0.00-0.03 [facility] Comment on above: Performed By: #### C BC ####[facility] [address]yiq[address] [place] [address]Dr. Andrade Alvarado IG % 0.5 % Normal 0.0-0.5 [facility] Comment on above: Performed By: #### C BC ####[facility] [address]hw[address]ea[address] [place], [place] [address]Dr. Andrade Alvarado LYMPH # 2.1 103/ul Normal 1.2-3.8 [facility] Comment on above: Performed By: #### C BC ####[facility] Fcmgphlazi[address] [place], [place] [address]Dr. Andrade Alvarado Lymphocytes/100 WBC (Bld) 48.3 % Normal 20.5-60.0 [facility] Comment on above: Performed By: #### C BC ####[facility] Fouofwxqlw[address] [place], [place] [address]Dr. Andrade Alvarado MANUAL DIFF REQ NO Normal [facility] Comment on above: Performed By: #### C BC ####[facility] Mctlenygfj[address] [place], [place] [address]Dr. Andrade Alvarado MCH (RBC) [Entitic mass] 31.9 pg Normal 26.7-34.0 [facility] Comment on above: Performed By: #### C BC ####[facility] Nmcncrpsoi[address] [place], [place] [address]Dr. Andrade Alvarado MCHC (RBC) [Mass/Vol] 32.5 g/dL Normal 29.9-35.2 [facility] Comment on above: Performed By: #### C BC ####[facility] [address] [place] [id number]. Andrade Alvarado MCV (RBC) [Entitic vol] 97.9 fL Normal 81.0-99.0 [facility] Comment on above: Performed By: #### C BC ####[facility] Uijcxxbmig[address] [place] [address]Dr. Andrade Alvarado MONO # 0.5 103/ul Normal 0.3-0.8 [facility] Comment on above: Performed By: #### C BC ####[facility] Richswryjq[address] [place] [address]Dr. Andrade Alvarado Monocytes/100 WBC (Bld) 11.2 % Normal 1.7-12.0 [facility] Comment on above: Performed By: #### C BC ####[facility] Omhetzijiu[address] [place] [address]Dr. Andrade Alvarado NEUT # 1.6 103/ul Normal 1.4-6.5 [facility] Comment on above: Performed By: #### C BC ####[facility] Tggusmjomn47[address] [place] [address]Dr. Andrade Alvarado Neutrophils/100 WBC (Bld) 36.8 % Critically low 43.0-75.0 [facility] Comment on above: Performed By: #### C BC ####[facility] Uzebemmcko[address] [place] [address]Dr. Andrade Alvarado Platelet mean volume (Bld) [Entitic vol] 9.9 fL Normal 9.5-13.5 [facility] Comment on above: Performed By: #### C BC ####[facility] Xrucptjwrk[address] [place] [address]Dr. Andrade Alvarado PLT 213 103/ul Normal 150-450 [facility] Comment on above: Performed By: #### C BC ####[facility] Ltoqwugpmd0803 [place] [address]Dr. Andrade Alvarado RBC 3.86 106/ul Critically low 4.20-5.40 [facility] Comment on above: Performed By: #### C BC ####[facility] [address] [place] [address]Dr. Andrade Alvarado WBC 4.4 103/ul Normal 4.0-11.0 [facility] Comment on above: Performed By: #### C BC ####[facility] Ssvxkvxfga[address] [place] [address]Dr. Andrade Alvarado PROF 14(COMP METB)on 022 Albumin [Mass/Vol] 4.2 g/dL Normal 3.4-5.[address] [facility] Comment on above: Performed By: #### C MP #### [facility] [address] [address] [address] Andrade Alvarado Albumin/Globulin [Mass ratio] 1.3 {ratio} Normal [facility] Comment on above: Performed By: #### C MP #### [facility] [address] [place] [address] Dr. Andrade Alvarado ALP [Catalytic activity/Vol] 61 U/L Normal 46-116 [facility] Comment on above: Performed By: #### C MP #### [facility] [address] [place] [address] Dr. Andrade Alvarado ALT [Catalytic activity/Vol] 23 U/L Normal 14-59 [facility] Comment on above: Performed By: #### C MP #### [facility] [address] [place] [address] Dr. Andrade Alvarado Anion gap [Moles/Vol] 15.5 mmol/L Normal [facility] Comment on above: Performed By: #### C MP #### [facility] [address] [place] [address] Dr. Andrade Alvarado AST [Catalytic activity/Vol] 20 U/L Normal 15-37 [facility] Comment on above: Performed By: #### C MP #### [facility] [address] [place] [address] Dr. Andrade Alvarado Bilirubin [Mass/Vol] 0.5 mg/dL Normal 0.2-1.0 [facility] Comment on above: Performed By: #### C MP #### [facility] [address] [place] [address] Dr. Andrade Alvarado Calcium [Mass/Vol] 9.1 mg/dL Normal 8.5-10.[address] [facility] Comment on above: Performed By: #### C MP #### [facility] [address] [address] [address] Andrade Alvarado Chloride [Moles/Vol] 106 mmol/L Normal 98-107 [facility] Comment on above: Performed By: #### C MP #### [facility] [address] [address] [address] Andrade Alvarado CO2 [Moles/Vol] 25.6 mmol/L Normal 21.0-32.0 The [facility] Comment on above: Performed By: #### C MP #### [facility] [address] [place] [address] Dr. Andrade Alvarado Creatinine [Mass/Vol] 0.97 mg/dL Normal 0.55-1.02 [facility] Comment on above: Performed By: #### C MP #### [facility] [address] [place] [address] Dr. Andrade Alvarado EGFR-AF TUVALUAN >60 Normal >=60 The [facility] Comment on above: Performed By: #### C MP #### [facility] [address] [place] [address] Dr. Andrade Alvarado EGFR-NON AF TUVALUAN 58 mL/min/1.73m2 Critically low >=60 [facility] Comment on above: Performed By: #### C MP #### [facility] [address] [place] [address] Dr. Andrade Alvarado Globulin (S) [Mass/Vol] 3.2 g/dL Normal [facility] Comment on above: Performed By: #### C MP #### [facility] [address] [address] [address] Andrade Alvarado Glucose [Mass/Vol] 91 mg/dL Normal 74-[address] [facility] Comment on above: Performed By: #### C MP #### [facility] [address] [place] [address] Dr. Andrade Alvarado Potassium [Moles/Vol] 4.1 mmol/L Normal 3.5-5.1 [facility] Comment on above: Performed By: #### C MP #### [facility] [address] [address] [address] Andrade Alvarado Protein [Mass/Vol] 7.4 g/dL Normal 6.4-8.[address] [facility] Comment on above: Performed By: #### C MP #### [facility] [address] [address] [address] Andrade Alvarado Sodium [Moles/Vol] 143 mmol/L Normal 136-[address] [facility] Comment on above: Performed By: #### C MP #### [facility] [address] [address] [address] Andrade Alvarado Urea nitrogen [Mass/Vol] 18.0 mg/dL Normal 7.0-18.0 [facility] Comment on above: Performed By: #### C MP #### [facility] [address] [address] [address] Andrade Alvarado Urea nitrogen/Creatinine [Mass ratio] 18.6 mg/mg Normal [facility] Comment on above: Performed By: #### C MP #### [facility] [address] [place] [address] Dr. Andrade Alvarado SED RATE [facility] 2021 SED RATE 15 mm/hr Normal <=30 [facility] Comment on above: Performed By: #### S EDR #### [facility] [address] [place] [address] Dr. Andrade Alvarado KNEE LEFT 3 [facility] 04-25-2020 KNEE LEFT [address] [facility] Department of Radiology [address] [place] [id number] Patient Name: RADHA ZAIDI : 1960 Sex: F Age: Race: White Pt. 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 Electronically signed: Eliezer Cam. Transcribed by: [email or web address], User Resident: Electronically Signed by: ELIEZER CAM @ 04/25/2020 11:[address] [facility] Comment on above: Order Comment: Evalu ate TIBIA FIBULA LEFTon 03-27-[address] [facility] Department of Radiology [address] [place] [id number] Patient Name: RADHA ZAIDI : 1960 Sex: F Age: Race: White Pt. Location: 84 Patient Status: Ordered Date: 03/27/2020 8:05:00 AM Completed Date: 03/27/2020 08:35 AM Requesting Provider: CHARLI LUKE Attending Provider: Report Copy To: Signs & Symptoms: S82.832A Oth fracture of upper and lower end of left fibula, init I10 History: [place] Comments: , , , Ordering Provider - [...] healing Electronically signed: Crissy Dubon. Transcribed by: [email or web address], User Resident: Electronically Signed by: CRISSY DUBON @ 03/27/2020 09:[address] [facility] Comment on above: Order Comment: Evalu ate Operative Reporton 0 Operative Report MR#: [id number] [facility] Pt. Name: Radha Zadii Room #: 0C Discharge Date: Birthdate: 1960 [...] were bluntly retracted. We then used a Seaton as well as a hemostat to debride [...] Paniagua MD Date Trans: 03/13/2020 02:26 A/bryson YBARRA_JN:[id number] cc: John Ashby D.O. [address] [place] [address], [place] [address] [facility] KNEE LEFT 1 OR 2 Son 03-12 KNEE LEFT 1 OR 2 VWS [facility] Department of Radiology [address] [place] [id number] Patient Name: RADHA ZAIDI : 1960 [...] GRAFT Exam: KNEE LEFT 1 OR 2 [facility] Intraoperative fluoroscopic guidance HISTORY: Fracture fixation. COMPARISON: 02/04/2020 radiographs. IMPRESSION: 1. There are 3 images, total time of 2.6 minutes. 2. Hardware projects over the proximal fibular shaft fracture. Electronically signed: Rahul James. Transcribed by: [email or web address], User Resident: Electronically Signed by: RAHUL JAMES @ 03/12/2020 03:[address] [facility] Comment on above: Order Comment: Evalu ate POC GLUCOSE LABon 03-12-2020 Glucose [Mass/Vol] 103 mg/dL High 70-[address] [facility] Comment on above: Performed By: #### 8 5499 ####[facility] *MRSA/MSSA DNA NASALon 03-08 *MRSA/MSSA DNA NASAL Clinical Report: (D ) Specimen: NASAL SWAB Collected: 03/08/2020 14:02 Status: Final Last Updated: 03/09/2020 09:30 MSSA DNA (Final) Negative MRSA DNA (Final) Negative Normal [facility] Comment on above: Performed By: #### 3 1595 ####[facility] *SARS-CoV-2 COVID-19on 03-08 [id number] Not Detected Normal Not Detected [facility] Comment on above: Order Comment: The A ptima SARS-CoV-2 assay is a nucleic acid amplification test intended for the qualitative detection of RNA from SARS-CoV-2 isolated and purified from nasopharyngeal (BUSINESS DEPARTMENT CHAIR),oropharyngeal (OP), nasal swab, sputum, and bronchoalveolar lavage (BAL) specimens from patients with signs and symptoms of infection who are suspected of COVID-19. Results are for the identification of SARS-CoV-2 RNA. The SARS-CoV-2 RNA is generally detectable during the acute phase of infection. The Aptima SARS-CoV-2 Assay on the Campus Shift and Campus Shift Fusion system is intended for use by laboratory personnel specifically instructed and trained in the operation of the [place] and Campus Shift Fusion system. The Aptima SARS-CoV-2 assay is [...] information. Performed By: #### 3 1792 #### [facility] [address] APTTon 03-08-2020 aPTT Coag (Bld) [Time] 26.9 s Normal 25.0-35.[address] [facility] Comment on above: Result Comment: ALL [...] THIS PURPOSE. Performed By: #### 5 6101, [address] ####[facility] BASIC METABOLIC PANELon 02-09 Calcium [Mass/Vol] 9.7 mg/dL Normal 8.6-10.[address] [facility] Comment on above: Performed By: #### 0 0071 #### [facility] [address] Chloride [Moles/Vol] 103 mmol/L Normal 98-[address] [facility] Comment on above: Performed By: #### 0 0071 #### [facility] [address] CO2 [Moles/Vol] 31 mmol/L Normal 21-[address] [facility] Comment on above: Performed By: #### 0 0071 #### [facility] [address] Creatinine [Mass/Vol] 0.87 mg/dL Normal 0.60-1.[address] [facility] Comment on above: Performed By: #### 0 0071 #### [facility] [address] GFR/1.73 sq M predicted among blacks MDRD (S/P/Bld) [Vol rate/Area] mL/min/{1.73_m2} Normal >[address] [facility] Comment on above: Performed By: #### 0 0071 #### [facility] [address] [place] [address], [facility] GFR/1.73 sq M predicted among non-blacks MDRD (S/P/Bld) [Vol rate/Area] mL/min/{1.73_m2} Normal >[address] [facility] Comment on above: Performed By: #### 0 0071 #### [facility] [address] [place] [address], [facility] Glucose [Mass/Vol] 106 mg/dL High 70-[address] [facility] Comment on above: Performed By: #### 0 0071 #### [facility] [address] Potassium [Moles/Vol] 4.3 mmol/L Normal 3.5-5.[address] [facility] Comment on above: Performed By: #### 0 0071 #### [facility] [address] Sodium [Moles/Vol] 141 mmol/L Normal 136-[address] [facility] Comment on above: Performed By: #### 0 0071 #### [facility] [address] [place] [address], [facility] Urea nitrogen [Mass/Vol] 14 mg/dL Normal 7-[address] [facility] Comment on above: Performed By: #### 0 0071 #### [facility] [address] [place] [address], [facility] CBC W/DIFFon 03-08-2020 ABS BASOPHILS 0.1 10*3/uL Normal 0.0-0.[address] [facility] Comment on above: Performed By: #### 5 0103 ####[facility] ABS IMM GRANS 0.0 10*3/uL Normal 0.0-0.[address] [facility] Comment on above: Performed By: #### 5 0103 ####[facility] [place] [address], [facility] ABS NEUTROPHILS 3.4 10*3/uL Normal 1.6-7.[address] [facility] Comment on above: Performed By: #### 5 3 ####[facility] [place] [address], [facility] Basophils/100 WBC (Bld) 0.8 % Normal 0.0-1.[address] [facility] Comment on above: Performed By: #### 3 ####[facility] [place] [address], [facility] Eosinophils (Bld) [#/Vol] 0.7 10*3/uL High 0.0-0.[address] [facility] Comment on above: Performed By: #### 102 ####[facility] [place] [address], [facility] Eosinophils/100 WBC (Bld) 9.5 % High 0.0-6.[address] [facility] Comment on above: Performed By: #### 5 3 ####[facility].[address] Erythrocyte distribution width (RBC) [Ratio] 13.6 % Normal 11.5-15.[address] [facility] Comment on above: Performed By: #### 3 ####[facility] [place] [address], [facility] Hematocrit (Bld) [Volume fraction] 42.5 % Normal 36.0-45.[address] [facility] Comment on above: Performed By: #### 102 ####[facility] [place] [address], [facility] Hemoglobin (Bld) [Mass/Vol] 13.7 g/dL Normal 12.0-15.[address] [facility] Comment on above: Performed By: #### 5 0103 ####[facility] [address] IMMATURE GRANS 0.3 % Normal 0.0-1.[address] [facility] Comment on above: Performed By: #### 3 ####[facility] Lymphocytes (Bld) [#/Vol] 2.7 10*3/uL Normal 1.2-4.[address] [facility] Comment on above: Performed By: #### 3 ####[address] Lymphocytes/100 WBC (Bld) 35.1 % Normal 20.0-45.[address] [facility] Comment on above: Performed By: #### 3 ####[address] MCH (RBC) [Entitic mass] 31.2 pg Normal 27.0-33.[address] [facility] Comment on above: Performed By: #### 5 3 ####[address] MCHC (RBC) [Mass/Vol] 32.2 g/dL Normal 32.0-35.[address] [facility] Comment on above: Performed By: #### 3 ####[facility] [place] [address] MCV (RBC) [Entitic vol] 96.8 fL Normal 82.0-98.[address] [facility] Comment on above: Performed By: #### 3 ####[address] Monocytes (Bld) [#/Vol] 0.8 10*3/uL Normal 0.1-1.[address] [facility] Comment on above: Performed By: #### 5 0103 ####[facility] [place] [address], [facility] MONOS 9.8 % Normal 5.0-12.[address] [facility] Comment on above: Performed By: #### 5 3 ####[facility] [place] [address], [facility] Neutrophils/100 WBC (Bld) 44.5 % Normal 40.0-72.[address] [facility] Comment on above: Performed By: #### 5 3 ####[facility] [place] [address], [facility] Nucleated RBC/100 WBC (Bld) [Ratio] 0 % Normal 0-[address] [facility] Comment on above: Performed By: #### 5 3 ####[facility].[address] PLAT CNT 230 10*3/uL Normal 150-[address] [facility] Comment on above: Performed By: #### 5 0103 ####[facility] [place] [address], [facility] RBC (Bld) [#/Vol] 4.39 10*6/uL Normal 3.80-5.[address] [facility] Comment on above: Performed By: #### 5 0103 ####[facility] [place] [address], [facility] WBC (Bld) [#/Vol] 7.72 10*3/uL Normal 4.00-10.[address] [facility] Comment on above: Performed By: #### 5 0103 ####[facility].[address] PROTHROMBIN TIMEon 0 INR Coag (PPP) [Relative time] 0.99 {INR} Normal 0.91-1.[address] [facility] Comment on above: Result Comment: ACCC [...] CHEST 1995;108:231S-246S. Performed By: #### 5 6101, 00167 #### [facility] [address] [facility]. [address] PT Coag (PPP) [Time] 13.1 s Normal 12.3-14.[address] [facility] Comment on above: Result Comment: ALL RESULTS MUST BE INTERPRETED WITH RESPECT TO BLOOD DRAWING ARTIFACT OR DILUTION ERROR OF ANTICOAGULANT AT THE TIME OF SAMPLING. Performed By: #### 5 6101, 12020 #### [facility] [address] [facility] [address] ALBUMIN BLOODon 02-04-2020 Albumin [Mass/Vol] 4.5 g/dL Normal 3.5-5.[address] [facility] Comment on above: Performed By: #### 3 0728, 35910, 55709, 10008, 74871 #### [facility] [address] [place] [address], [facility] BASIC METABOLIC PANELon 01-09 Calcium [Mass/Vol] 9.5 mg/dL Normal 8.6-10.[address] [facility] Comment on above: Performed By: #### 3 0728, 49251, 61671, 63999, 91795 #### [facility] [address] [place] [address], [place] Chloride [Moles/Vol] 105 mmol/L Normal 98-[address] [facility] Comment on above: Performed By: #### 3 0728, 73459, 70943, 45527, 50885 #### [facility] [address] [place] [address], [place] CO2 [Moles/Vol] 27 mmol/L Normal 21-[address] [facility] Comment on above: Performed By: #### 3 0728, 07616, 95875, 62404, 79717 #### [facility] [address] [place] [address], [place] Creatinine [Mass/Vol] 0.81 mg/dL Normal 0.60-1.[address] [facility] Comment on above: Performed By: #### 3 0728, 30236, 90255, 68754, 01554 #### [facility] [address] [place] [address], [place] GFR/1.73 sq M predicted among blacks MDRD (S/P/Bld) [Vol rate/Area] mL/min/{1.73_m2} Normal >[address] [facility] Comment on above: Performed By: #### 3 0728, 64367, 82156, 53088, 46110 #### [facility] [address] [place] [address], [place] GFR/1.73 sq M predicted among non-blacks MDRD (S/P/Bld) [Vol rate/Area] mL/min/{1.73_m2} Normal >[address] [facility] Comment on above: Performed By: #### 3 0728, 41784, 29715, 49459, 78712 #### [facility] [address] [place] [address], [place] Glucose [Mass/Vol] 115 mg/dL High 70-[address] [facility] Comment on above: Performed By: #### 3 0728, 92747, 21564, 50663, 49801 #### [facility] [address] [place] [address], [facility] Potassium [Moles/Vol] 3.9 mmol/L Normal 3.5-5.[address] [facility] Comment on above: Performed By: #### 3 0728, 59239, 19969, 26491, 53411 #### [facility] [address] [place] [address], [facility] Sodium [Moles/Vol] 140 mmol/L Normal 136-[address] [facility] Comment on above: Performed By: #### 3 0728, 07801, 17497, 19690, 30742 #### [facility] [address] [place] [address], [facility] Urea nitrogen [Mass/Vol] 20 mg/dL Normal 7-[address] [facility] Comment on above: Performed By: #### 3 0728, 08680, 66765, 04120, 73215 #### [facility] [address] [facility] [address] PREALBUMINon 02-04-2020 Prealbumin [Mass/Vol] 24.0 mg/dL Normal 17.0-34.[address] [facility] Comment on above: Performed By: #### 3 0728, 27996, 66483, 68224, 56909 #### [facility] [address] [facility]. [address] TIBIA FIBULA LEFTon 02-04-20 [address] [facility] Department of Radiology [address] [place] [address] Patient Name: RADHA ZAIDI : [...] indicated. Electronically signed: Eliezer Randolph. Transcribed by: [id number], User Resident: Electronically Signed by: ELIEZER RANDOLPH @ 02/04/2020 10:[address] [facility] TRANSFERRINon 02-04-2020 Transferrin [Mass/Vol] 270 mg/dL Normal 203-[address] [facility] Comment on above: Performed By: #### 3 0728, 04299, 44093, 51910, 81616 #### [address] [place] [address], [place] VITAMIN D 25-HYDROXYon 02-03 VITAMIN D 25-OH 38.5 ng/mL Normal 30.0-80.[address] [facility] Comment on above: Result Comment: >80. 0 Toxicity possible Performed By: #### 3 0728, 09844, 80768, 40334, 91250 #### [facility] [address] [place] [address], [facility] Gregor 07-06-2018 L - -------- Specimen: [id number] Received: 07/06/18 Status: JONI Lazaro Num: [id number] Spec Type: Surgical Subm Dr: Tash Resendez MD Tissues: A Finger - Amputation, Non-traumatic (LT SMALL FINGER) Procedures: HE Stain/2, Gross/Micro L4, Decal -------- Patient Age/Sex Location Account Attending Physician -------- Radha Zaidi 58/F [place] [id number] Tash Resendez MD -------- SPEC NUM: [id number] RECD: 07/06/18 STATUS: JONI LAZARO NUM: [id number] RUSS: 07/06/18 DR: Tash Resendez MD ENTERED: 07/06/18 [facility] DR: JULIUS TYPE: Surgical DEPT: S [...] reveals yellow, viable appearing bony cut surfaces. 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 (ENRIKE/NAA/lina) -------- Specimen: [id number] Received: 07/06/18 Status: KAROLINAMulu Req Num: [id number] Spec Type: Surgical Subm Dr: Tash Resendez MD Tissues: A Finger - Amputation, Non-traumatic (LT SMALL FINGER) Procedures: HE Stain/2, Gross/Micro L4, Decal -------- Patient: Radha Zaidi [id number] (Continued) -------- Specimen: Received: 07/06/18 (Continued) Signed (signature on file) Harsh Jo MD 08/14/18 1503 -------- Specimen: [id number] Received: 07/06/18 Status: JONI Req Num: [id number] Spec Type: Surgical Subm Dr: Tash Resendez MD Tissues: A Finger - Amputation, Non-traumatic (LT SMALL FINGER) Procedures: HE Stain/2, Gross/Micro L4, Decal -------- Patient: Radha Zaidi [id number] (Continued) -------- Specimen: [id number] Received: 07/06/18 (Continued) Microscopic Two glass slides with H E stained material have been examined. The microscopic findings support the above pathologic diagnosis. [id number], [id number] A. - - LT SMALL FINGER -------- -------- Specimen: [id number] Received: 07/06/18 Status: JONI Lazaro Num: [id number] Spec Type: Surgical Subm Dr: Tash Resendez MD Tissues: A Finger - Amputation, Non-traumatic (LT SMALL FINGER) Procedures: HE Stain/2, Gross/Micro L4, Decal -------- Patient: Radha Zaidi [id number] (Continued) -------- Signed (signature on file) Harsh Jo MD 08/14/18 1503 [facility] FLUORO FOR SURGICAL PROCEDUR ESon 10-20-2017 FLUORO FOR SURGICAL PROCEDURES Exam: FLUORO FOR SURGICAL PROCEDURESHistory: ACDF Fusion Findings: Fluoroscopy time was 70 seconds A total of 19 fluoroscopic images were obtained by Dr. Cheng during the anterior cervical discectomy in the lower cervical spine.IMPRESSION: Impression: Fluoroscopic assistance provided for operative guidance.Interpreted by:DIANA Lealigned by:Eugene Cancino MD10/20/17inal result Normal [facility] Basic Metabolic Panelon 04-0 Anion gap 15 mmol/L Critically high 7-13 [facility] Calcium 9.6 mg/dL Normal 8.6-10.2 [facility] Chloride 102 mmol/L Normal 98-107 [facility] CO2 23 mmol/L Normal 22-29 [facility] Creatinine 0.54 mg/dL Normal 0.50-0.90 [facility] eGFR (black) mL/min/{1.73_m2} Normal >60 [facility] Comment on above: Result Comment: >60 mL/min/1.73m2 EGFR, calc. for ages 18 and older using theMDRD formula (not corrected for weight), is valid for stablerenal function. eGFR (MDRD) mL/min/{1.73_m2} Normal >60 [facility] Comment on above: Result Comment: >60 mL/min/1.73m2 EGFR, calc. for ages 18 and older using theMDRD formula (not corrected for weight), is valid for stablerenal function. Glucose mass conc 97 mg/dL Normal 74-109 [facility] Potassium molar conc 4.8 mmol/L Normal 3.5-5.1 [facility] Sodium 140 mmol/L Normal 132-144 [facility] Urea nitrogen 14 mg/dL Normal 6-20 [facility] CBC With Platelet No Differe ntialon 10-13-2017 Erythrocyte distribution width Auto Ratio (RBC) 13.3 % Normal 11.5-14.5 [facility] Erythrocytes (RBC) 4.96 10*6/uL Normal 4.20-5.40 [facility] Hematocrit (HCT) 47.1 % Critically high 37.0-47.0 [facility] Hemoglobin mass conc (Bld) 16.2 g/dL Critically high 12.0-16.0 [facility] MCH 32.7 pg Critically high 27.0-31.3 [facility] MCHC mass conc (RBC) 34.4 % Normal 33.0-37.0 [facility] MCV 95.0 fL Normal 82.0-100.0 [facility] Platelets 223 10*3/uL Normal 130-400 [facility] WBC (Leukocytes) 6.2 10*3/uL Normal 4.8-10.8 [facility] Culture, MRSA Screenon 10-13 Culture, MRSA Screen ORDERED BY: VITO STALLWORTH: Nares Nose COLLECTED: 10/13/17 13:18ANTIBIOTICS AT [facility].: RECEIVED : 10/13/17 13:18Culture, MRSA Screen FINAL 10/14/17 13:59 No MRSA isolated Normal [facility] Partial Thromboplastin Timeo n 10-13-2017 aPTT 22.9 s Normal 21.6-35.4 [facility] Comment on above: Result Comment: Hepa rin Therapeutic Range: 38.8 - 54.6 seconds. Prothrombin Timeon 201 8 INR Coag RelTime (PPP) 1.0 {INR} Normal [facility] Comment on above: Result Comment: Kashif mmended [...] Coag time (PPP) 10.0 s Normal 8.1-13.7 [facility] Type and Screen Capture 3 sc rn cellon 10-13-2017 Bilirubin (total) PATIENT: DYAN GARCIA LOC: [place]# : [id number] : 1960 SEX: FORDERED BY: BASIM CHENG ORDERED : 10/13/2017 12:41 COLLECTED: 10/13/2017 13:24ORDER : [id number] RECEIVED : 10/13/2017 13:24 T EST NAME RESULT UNITS RANGES ABN FL STABORH Capture A POS FAntibody 3 Cell Scrn Captu NEG F Normal [facility] Urinalysis, reflex to cultur gabbie 10-13-2017 Bilirubin Ql (U) Negative Normal Negative [facility] Urine Reflexed to Culture Not Indicated Normal [facility] Urine, clarity Clear Normal Clear [facility] Urine, color Yellow Normal Straw/Stoddard [facility] Urine, glucose presence Negative Normal Negative [facility] Urine, hemoglobin presence Negative Normal Negative [facility] Urine, ketones presence Negative Normal Negative [facility] Urine, leukocyte esterase presence Negative Normal Negative [facility] Urine, nitrite presence Negative Normal Negative [facility] Urine, pH 5.5 [pH] Normal 5.0-9.0 [facility] Urine, protein presence Negative Normal Negative [facility] Urine, specific gravity 1.018 Normal 1.005-1.03 [facility] Urine, urobilinogen 0.2 {Rajwinder'U}/dL Normal < 2.0 [facility] Vital Signs Date Time Vital Sign Value Performing Clinician Facility 12-28-2023 15:31-0400 Body height 165.1 cm [facility] 12-28-2023 15:31-0400 Body mass index (BMI) [Ratio] 25.7 kg/m2 [facility] 12-28-2023 15:31-0400 Body weight 70.08 kg [facility] 12-28-2023 15:31-0400 Diastolic blood pressure 75 mm[Hg] [facility] 12-28-2023 15:31-0400 Heart rate 92 /min [facility] 12-28-2023 15:31-0400 Respiratory rate 12 /min [facility] 12-28-2023 15:31-0400 Systolic blood pressure 112 mm[Hg] [facility] 09-28-2023 15:16-0400 Body height 165.1 cm [facility] 09-28-2023 15:16-0400 Body mass index (BMI) [Ratio] 27.8 kg/m2 [facility] 09-28-2023 15:16-0400 Body weight 75.92 kg [facility] 09-28-2023 15:16-0400 Diastolic blood pressure 68 mm[Hg] [facility] 09-28-2023 15:16-0400 Heart rate 80 /min [facility] 09-28-2023 15:16-0400 Respiratory rate 12 /min [facility] 09-28-2023 15:16-0400 Systolic blood pressure 130 mm[Hg] [facility] 09-05-2023 21:48-0500 Body height 166.37 cm John Ball Other [employer] [facility] [employer] Other 09-05-2023 16:33-0500 Body height 165.1 cm [facility] 09-05-2023 16:33-0500 Body mass index (BMI) [Ratio] 28.5 kg/m2 [facility] 09-05-2023 16:33-0500 Body weight 77.79 kg [facility] 09-05-2023 16:33-0500 Diastolic blood pressure 69 mm[Hg] [facility] 09-05-2023 16:33-0500 Heart rate 97 /min [facility] 09-05-2023 16:33-0500 Systolic blood pressure 115 mm[Hg] [facility] 08-18-2023 15:40-0500 Body height 162.6 cm Jordan [employer] Work Phone: [facility] 08-18-2023 15:40-0500 Body mass index (BMI) [Ratio] 28.15 kg/m2 [employer] Work Phone: [facility] 08-18-2023 15:40-0500 Body temperature 97.11 [degF] [employer] Work Phone: [facility] [employer] 08-18-2023 15:40-0500 Body weight 74.39 kg [employer] Work Phone: [facility] [employer] 08-17-2023 15:00-0500 Body height 166.37 cm John Ball Other [employer] [facility] [employer] Other 08-17-2023 15:00-0500 Body mass index (BMI) [Ratio] 28.12 kg/m2 John Ball Other [employer] Other 08-17-2023 15:00-0500 Body weight 77.84 kg John Ball Other [employer] Other 08-17-2023 15:00-0500 Diastolic blood pressure 79 mm[Hg] John Ball Other [employer] Other 08-17-2023 15:00-0500 Respiratory rate 12 /min John Ball Other [employer] Other 08-17-2023 15:00-0500 Systolic blood pressure 126 mm[Hg] John Ball Other [employer] Other 04-07-2023 14:00-0400 Body temperature 97.52 [degF] Jordan [employer] [facility] 04-07-2023 14:00-0400 Diastolic blood pressure 63 mm[Hg] Jordan [employer] [facility] 04-07-2023 14:00-0400 Heart rate 88 /min [employer] [facility] 04-07-2023 14:00-0400 Mean blood pressure 76 mm[Hg] Jordan [employer] [facility] 04-07-2023 14:00-0400 SaO2% (BldA) [Mass fraction] 94 % Jordan [employer] [facility] 04-07-2023 14:00-0400 Systolic blood pressure 101 mm[Hg] Jordan [employer] [facility] 04-07-2023 08:47-0400 Diastolic blood pressure 75 mm[Hg] Jordan [employer] [facility] 04-07-2023 08:47-0400 Systolic blood pressure 125 mm[Hg] Jordan [employer] [facility] 04-07-2023 07:45-0400 Blood Pressure Location Jordan Yuan [facility] 04-07-2023 07:45-0400 Body temperature 97.88 [degF] Jordan Yuan [facility] 04-07-2023 07:45-0400 Diastolic blood pressure 75 mm[Hg] Jordan Yuan [facility] 04-07-2023 07:45-0400 Heart rate 72 /min Jordan Yuan [facility] 04-07-2023 07:45-0400 Hourly Rounding Jordan Yuan [facility] 04-07-2023 07:45-0400 Mean blood pressure 92 mm[Hg] Jordan Yuan [facility] 04-07-2023 07:45-0400 Promise to Return Jordan Yuan [facility] 04-07-2023 07:45-0400 Respiratory rate 16 /min Jordan Yuan [facility] 04-07-2023 07:45-0400 SaO2% (BldA) [Mass fraction] 96 % Jordan Yuan [facility] 04-07-2023 07:45-0400 Systolic blood pressure 125 mm[Hg] Jordan Yuan [facility] 04-07-2023 06:17-0400 Hourly Rounding Jordan Yuan [facility] 04-07-2023 06:17-0400 Promise to Return Jordan Yuan [facility] 04-07-2023 05:05-0400 Hourly Rounding Jordna Yuan [facility] 04-07-2023 05:05-0400 Promise to Return Jordan Yuan [facility] 04-06-2023 22:20-0400 Blood Pressure Location Jordan Yuan [facility] 04-06-2023 22:20-0400 Body temperature 98.24 [degF] Jordan Yuan [facility] 04-06-2023 22:20-0400 Heart rate 74 /min Jordan Yuan [facility] 04-06-2023 22:20-0400 Mean blood pressure 78 mm[Hg] Jordan Yuan [facility] 04-06-2023 22:20-0400 Respiratory rate 16 /min Jordan Yuan [facility] 04-06-2023 22:20-0400 SaO2% (BldA) [Mass fraction] 93 % Jordan Yuan [facility] 04-06-2023 20:10-0400 Heart rate 65 /min Jordan Yuan [facility] 04-06-2023 20:01-0400 Body temperature 97.34 [degF] Jordan Yuan [facility] 04-06-2023 20:00-0400 Mean blood pressure 86 mm[Hg] Jordan Yuan [facility] 04-06-2023 16:17-0400 Mean blood pressure 97 mm[Hg] Jordan Yuan [facility] 04-06-2023 16:16-0400 Body temperature 97.52 [degF] Jordan Yuan [facility] 04-06-2023 13:49-0400 Mean blood pressure 88 mm[Hg] Jordan Yuan [facility] 04-06-2023 12:45-0400 Respiratory rate 13 /min Jordan Brown [facility] 04-06-2023 12:35-0400 Respiratory rate 10 /min Jordan Brown [facility] 04-06-2023 12:20-0400 Respiratory rate 17 /min Jordan Brown [facility] 04-06-2023 11:37-0400 Body temperature 96.98 [degF] Jordan Brown [facility] 04-06-2023 06:39-0400 Heart rate 68 /min Jordan Brown [facility] 03-24-2023 14:52-0400 Diastolic blood pressure 76 mm[Hg] Jordan Brown [facility] 03-24-2023 14:52-0400 Heart rate 67 /min Jordan Brown [facility] 03-24-2023 14:52-0400 Mean blood pressure 99 mm[Hg] Jordan Brown [facility] 03-24-2023 14:52-0400 Systolic blood pressure 144 mm[Hg] Jordan Brown [facility] 03-24-2023 14:52-0400 Heart rate 68 /min Jordan Brown [facility] 03-24-2023 14:52-0400 SaO2% (BldA) [Mass fraction] 99 % Jordan Brown [facility] 03-24-2023 14:52-0400 Diastolic blood pressure 75 mm[Hg] Jordan Brown [facility] 03-24-2023 14:52-0400 Mean blood pressure 93 mm[Hg] Jordan Brown [facility] 03-24-2023 14:52-0400 Systolic blood pressure 128 mm[Hg] Jordan Brown [facility] 03-24-2023 14:51-0400 Respiratory rate 16 /min Jordan Yuan [facility] 01-10-2023 15:00-0400 Body height 166.37 cm John Ball Other [place] Other 01-10-2023 15:00-0400 Body mass index (BMI) [Ratio] 27.04 kg/m2 John Ball Other [employer] Other 01-10-2023 15:00-0400 Body weight 74.84 kg John Ball Other [employer] Other 01-10-2023 15:00-0400 Diastolic blood pressure 86 mm[Hg] John Ball Other [employer] Other 01-10-2023 15:00-0400 Respiratory rate 12 /min John Ball Other [employer] Other 01-10-2023 15:00-0400 Systolic blood pressure 124 mm[Hg] John Ball Other [employer] Other 12-09-2022 09:00-0400 Body height 166.37 cm John Ball Other [employer] Other 12-09-2022 09:00-0400 Body mass index (BMI) [Ratio] 27.33 kg/m2 John Ball Other [employer] Other 12-09-2022 09:00-0400 Body weight 75.66 kg John Ball Other [employer] Other 12-09-2022 09:00-0400 Diastolic blood pressure 71 mm[Hg] John Ball Other [employer] Other 12-09-2022 09:00-0400 Respiratory rate 12 /min John Ball Other [employer] Other 12-09-2022 09:00-0400 Systolic blood pressure 111 mm[Hg] John Ball Other [employer] Other 11-09-2022 15:00-0400 Body height 166.37 cm John Ball Other [employer] Other 11-09-2022 15:00-0400 Body mass index (BMI) [Ratio] 27.36 kg/m2 John Ball Other [employer] Other 11-09-2022 15:00-0400 Body weight 75.75 kg John Ball Other [employer] Other 11-09-2022 15:00-0400 Diastolic blood pressure 80 mm[Hg] John Ball Other [employer] Other 11-09-2022 15:00-0400 Respiratory rate 12 /min John Ball Other [employer] Other 11-09-2022 15:00-0400 Systolic blood pressure 135 mm[Hg] John Ball Other [employer] Other 07-26-2022 16:30-0500 Body height 166.37 cm John Ball Other [employer] Other 07-26-2022 16:30-0500 Body mass index (BMI) [Ratio] 26.28 kg/m2 John Ball Other [employer] Other 07-26-2022 16:30-0500 Body weight 72.76 kg John Ball Other [employer] Other 07-26-2022 16:30-0500 Diastolic blood pressure 78 mm[Hg] John Ashby Other [employer] Other 07-26-2022 16:30-0500 Respiratory rate 12 /min John Ashby Other [employer] Other 07-26-2022 16:30-0500 Systolic blood pressure 122 mm[Hg] John Ashby Other [place] [employer] Other Encounters Encounter Date Encounter Type Care Provider Facility Start: 12-28-2023 End: 12-28-2023 ambulatory [facility] Work Phone: Start: 12-28-2023 End: 12-28-2023 Patient encounter procedure [facility] Work Phone: Start: 11-15-2023 End: 11-15-2023 ambulatory JORDAN YUAN Not Available Start: 11-04-2023 End: 11-04-2023 ambulatory [facility] Start: 09-28-2023 End: 09-28-2023 ambulatory [facility] Work Phone: Start: 09-28-2023 End: 09-28-2023 Patient encounter procedure [facility] Work Phone: Start: 09-13-2023 End: 09-13-2023 ambulatory JORDAN YUAN Not Available Start: 09-06-2023 End: 09-07-2023 ambulatory Jordan Yuan Facility:[facility] Start: 09-06-2023 End: 09-06-2023 Patient encounter procedure Jordan Yuan [facility] Start: 09-05-2023 Non-patient / Non-visit [facility] [employer] Work Phone: Start: 09-05-2023 End: 09-05-2023 ambulatory John Ashby Other [employer] Other Start: 09-05-2023 Telephone encounter John Ashby FP [facility] Start: 09-02-2023 Non-patient / Non-visit [facility] [employer] Work Phone: Start: 08-30-2023 Non-patient / Non-visit [facility] [employer] Work Phone: Start: 08-18-2023 End: 08-18-2023 ambulatory JORDAN YUAN Not Available Start: 08-18-2023 End: 08-18-2023 Patient encounter procedure Jordan Yuan DO Work Phone: [facility] Comment on above: Right shoulder pain, unspecified chronicity (Primary Dx) Start: 08-18-2023 Chart abstracting Jordan do DO Work Phone: [facility] Start: 08-17-2023 End: 08-17-2023 ambulatory John Ashby Other [employer] Other Start: 08-17-2023 Encounter for genera l adult medical examination without abnormal findings John Ashby [facility] Start: 08-17-2023 Periodic preventive med est patient 40-64yrs John Ashby [facility] Start: 07-21-2023 End: 07-21-2023 ambulatory JORDAN YUAN Not Available Start: 07-05-2023 End: 07-05-2023 ambulatory JORDAN YUAN Not Available Start: 06-28-2023 End: 06-28-2023 ambulatory John Ashby Other [employer] Other Start: 06-28-2023 Office outpatient vi sit 15 minutes John Ashby [facility] Start: 05-24-2023 End: 05-24-2023 ambulatory JORDAN YUAN Not Available Start: 05-06-2023 End: 05-06-2023 ambulatory John Ashby Other [employer] Other Start: 05-06-2023 Telephone encounter John SIMON [facility] Start: 04-26-2023 End: 04-26-2023 ambulatory John Ashby Other [employer] Other Start: 04-26-2023 Telephone encounter John SIMON [facility] Start: 04-06-2023 End: 04-07-2023 ambulatory Jordan Yuan Facility:[facility] Start: 04-06-2023 End: 04-07-2023 Admission to same day surgery center Jordan Yuan [facility] Start: 03-31-2023 End: 03-31-2023 ambulatory John Ashby Other [employer] Other Start: 03-31-2023 Telephone encounter John Ashby FP [facility] Start: 03-26-2023 End: 03-26-2023 ambulatory John Ashby Other [employer] Other Start: 03-26-2023 Telephone encounter John Ashby FP [facility] Start: 03-24-2023 End: 03-25-2023 ambulatory Jordan Yuan Facility:[facility] Start: 03-24-2023 End: 03-24-2023 Patient encounter procedure Jordan Yuan [facility] Start: 03-21-2023 End: 03-21-2023 ambulatory John Ashby Other [employer] Other Start: 03-21-2023 Telephone encounter John Ashby FP [facility] Start: 01-12-2023 End: 01-12-2023 ambulatory John Ashby Other [employer] Other Start: 01-12-2023 Telephone encounter John Ashby FP [facility] Start: 01-10-2023 End: 01-10-2023 ambulatory John Ashby Other [employer] Other Start: 01-10-2023 Office outpatient vi sit 15 minutes John Ball [facility] Start: 12-14-2022 End: 12-14-2022 ambulatory John Ball Other [employer] Other Start: 12-14-2022 Telephone encounter John Ball FP [facility] Start: 12-10-2022 End: 12-10-2022 ambulatory John Ball Other [employer] Other Start: 12-10-2022 Telephone encounter John Ball FP [facility] Start: 12-09-2022 End: 12-09-2022 ambulatory John Ball Other [employer] Other Start: 12-09-2022 Office outpatient vi sit 15 minutes John Ball [facility] Start: 11-09-2022 End: 11-09-2022 ambulatory John Ball Other [employer] Other Start: 11-09-2022 Office outpatient vi sit 15 minutes John Ball [facility] Start: 10-13-2022 ambulatory NARENDRANATH LAKSHMIPATHY . Facility:[facility] Start: 10-07-2022 End: 10-08-2022 ambulatory NARENDRANATH LAKSHMIPATHY . Facility:[facility] Start: 09-22-2022 End: 09-22-2022 ambulatory John Ball Other [employer] Other Start: 09-22-2022 Telephone encounter John Ball [facility] Start: 09-16-2022 End: 09-17-[address] JOHN ASHBY Facility:[facility] Start: 08-14-2022 End: 08-14-2022 ambulatory John Ball Other [employer] Other Start: 08-14-2022 Telephone encounter John Ball [facility] Start: 07-26-2022 End: 01-16-2023 ambulatory John Ball Other [employer] Other Start: 07-26-2022 Office outpatient vi sit 15 minutes [facility] Start: 07-22-2022 Annual wellness visit John Ashby Other [employer] Other Start: 07-22-2022 Patient encounter procedure John Ashby Other [employer] Other Start: 07-09-2022 End: 07-10-[address] JOHN ASHBY Facility:[facility] Start: 06-21-2022 Adult health examination John Ashby Other [employer] Other Start: 06-21-2022 Gynecological examination normal John Ashby Other [employer] Other Start: 2022 End: 06-09-[address] JOHN ASHBY Facility:[facility] Start: 06-01-2022 End: 06-01-[address] JOHN ASHBY Facility:[facility] Start: 05-24-2022 Encounter for genera l adult medical examination without abnormal findings DR JOHN ASHBY [facility] Start: 05-20-2022 End: 05-21-[address] JOHN [...] End: 03-13-2020 Patient encounter procedure MARYURI ALEXANDER Facility:[facility] Start: 03-05-2020 End: 03-20-2020 Patient encounter procedure MARYURI ALEXANDER Facility:[facility] Start: 10-20-2017 End: 10-21-2017 Ambulatory [facility] H[facility] BAS[facility] Start: 10-13-2017 End: 10-18-2017 Ambulatory BARRY H. BASIM [facility] Procedures Date Procedure Procedure Detail [...] [address] [place] [id number] Jordan Yuan, DO [address] [place] [address] [facility] Start: 08-18-2023 End: 08-18-2023 Patient encounter procedure 08/18/2023 3:45 PM EST Office Visit [facility] [address] [place] [id number] Jordan Yuan, [address] [place] [address] [facility] Start: 08-18-2023 End: 08-18-2024 C reactive protein [Mass/volume] in Serum or Plasma C-reactive protein Lab Routine Right shoulder pain, unspecified chronicity Expected: 08/18/2023 (Approximate), Expires: 08/18/2024 [facility] Comment on above: Expected: 08/18/2023 (Approximate), Expires: 08/18/2024 Start: 08-18-2023 End: 08-18-2024 CBC W Auto Differential panel - Blood CBC auto differential Lab Routine Right shoulder pain, unspecified chronicity Expected: 08/18/2023 (Approximate), Expires: 08/18/2024 [facility] Work Phone: Comment on above: Expected: 08/18/2023 (Approximate), Expires: 08/18/2024 Start: 08-18-2023 End: 08-18-2024 Erythrocyte sedimentation rate Sedimentation rate, automated Lab Routine Right shoulder pain, unspecified chronicity Expected: 08/18/2023 (Approximate), Expires: 08/18/2024 [facility] Comment on above: Expected: 08/18/2023 (Approximate), Expires: 08/18/2024 Start: 08-18-2023 End: 08-18-2024 Interleukin-6 Interleukin-6 Lab Routine Right shoulder pain, unspecified chronicity Expected: 08/18/2023 (Approximate), Expires: 08/18/2024 [facility] Comment on above: Expected: 08/18/2023 (Approximate), Expires: 08/18/2024 Immunizations Immunization Date Immunization Notes Care Provider Angélica kwon 03-22-2012 tetanus and diphther ia toxoids, adsorbed, preservative free, for adult use (5 Lf of tetanus toxoid and 2 Lf of diphtheria toxoid) John Ashby Other [facility] Payers Date Payer Category Payer [id number] 2021 Unknown [id number] 2020 Medicare MEDICARE MEDICAR E PART B [id number] 2020-[place] [address] Medicare [id number]. [id number] 2017 Unknown [id number] 1960 Unknown [id number] 2.16.840.1.071802.3.579.2. 647 1960 Unknown [id number] 2.16.840.1.971807.3.579.2. 647 1960 Unknown [id number] 2.16.840.1.784894.3.579.2. 593 1960 Unknown [id number] 2.16.840.1.282646.3.579.2. 593 1960 Unknown [id number] 2.16.840.1.603764.3.579.2. 593 1960 Unknown [id number] 2.16.840.1.643429.3.579.2. 593 1960 Unknown [id number] 2.16.840.1.624121.3.579.2. 593 1960 Unknown [id number] 2.16.840.1.683321.3.579.2. 593 1960 Unknown [id number] 2.16.840.1.315079.3.579.2. 593 1960 Unknown [id number] 2.16.840.1.529409.3.579.2. 593 1960 Unknown [id number] 2.16.840.1.101776.3.579.2. 593 1960 Unknown [id number] 2.16.840.1.050722.3.579.2. 593 1960 Unknown [id number] 2.16.840.1.434376.3.579.2. 593 1960 Unknown [id number] 2.16.840.1.047067.3.579.2. 593 1960 Unknown [id number] 2.16.840.1.324182.3.579.2. 593 1960 Unknown [id number] 2.16.840.1.165747.3.579.2. 593 1960 Unknown [id number] 2.16.840.1.259675.3.579.2. 593 1960 Unknown [id number] 2.16.840.1.173381.3.579.2. 593 1960 Unknown [id number] 2.16.840.1.807119.3.579.2. 593 1960 Unknown [id number] 2.16.840.1.244272.3.579.2. 727 1960 Unknown [id number] 2.16.840.1.552928.3.579.2. 727 1960 Unknown [id number] 2.16.840.1.140649.3.579.2. 727 1960 Unknown [id number] 2.16.840.1.051969.3.579.2. 1259 1960 Unknown [id number] 2.16.840.1.925413.3.579.2. 9 1960 Unknown [id number] 2.16.840.1.526480.3.579.2. 9 1960 Unknown [id number] 2.16.840.1.332111.3.579.2. 9 1960 Unknown [id number] 2.16.840.1.985020.3.579.2. 1258 1960 Unknown [id number] 2.16.840.1.777571.3.579.2. 1258 1960 Unknown [id number] 2.16.840.1.195760.3.579.2. 9 1960 Unknown [id number] 2.16.840.1.191172.3.579.2. 9 1960 Unknown [id number] 2.16.840.1.293998.3.579.2. 9 1960 Unknown [id number] 2.16.840.1.467301.3.579.2. 1258 1960 Unknown [id number] 2.16.840.1.449006.3.579.2. 9 1959 Medicare [id number] 1959 Self-pay 1959 Unknown [id number] 1959 Unknown [id number] Social History Date Type Detail Facility Unknown if ever smoked [employer] Other Start: 07-21-2023 End: 08-18-2023 Sex Assigned At [facility] Tobacco smoking status No Smokin g Status Entered [facility] Start: 07-06-2018 End: 05-24-2023 Tobacco smoking status MOIS Ex-smoker [facility] End: 07-11-1990 History of [...] Start: 1960 Sex Assigned At Female F [facility] Medical Equipment Procedure Code Equipment Code Equipment [...] Assessment Result Facility 03-24-2023 Functional Status No [facility] Clinical Notes 10-22-2021 to 11-04-2023 Kathi Neumann - 08/18/2023 3:45 PM EST Note Date & Type Note Facility 11-04-2023 Note DC Cardiology - [facility] Subjective Radha Zaidi is a [...] In the past she was admitted to [facility] with pneumonia and empyema, underwent chest tube, [...] mouth if needed., Disp: , Rfl: HYDROcodone-acetaminophen ([place]) 5-325 mg tablet, TAKE 1 TABLET BY [...] HDL 74. Imagin (more content not included)... 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 She states her hand has improved. She points to the anterior aspect of the shoulder as the location of her discomfort. SUBJECTIVE: MEDICATIONS: Current Outpatient Medications Medication Instructions aspirin 81 MG EC tablet 1 tablet, Oral, Daily buPROPion XL (Wellbutrin XL) 300 MG 24 hr tablet citalopram (CeleXA) 10 MG tablet HYDROcodone-acetaminophen ([place]) 5-325 MG tablet TAKE 1 TABLET BY [...] Symptoms tolerable, continue medical treatment f/u Rheumatology [employer] Other 12-19-2023 Evaluation note* Encounter Date Diagnosis [...] Jun, Immunosuppressed sta tus (ICD-10 - D84.9) [employer] Other 09-28-2023 Evaluation + Plan noteExtracted from: [...] Basic PRE Author:Hill Rai DO Date:04/06/23 Plan [place] [employer] Anesthesiologists (ASA) physical status classification: Class II. Anesthetic Preoperative Plan: Anesthesia General. Regional Interscalene block. [facility]09-28-2023 NotePatient: RADHA ZAIDI Age: 62 [...] 15 mg, 1 tab(s), Oral, Daily, 0 Refill(s)[facility]:Result Comment: Electronically Signed By: Jordan Yuan DO\.br\Date and Time Signed: 04/07/23 07:42 [id number] Hospital Discharge instructions Patient Education 04/07/2023 07:41:33 Iris Yuan - Shoulder Replacement (Custom) [place], [place] [facility] DISCHARGE INSTRUCTIONS: SHOULDER REPLACEMENT [...] persistent vomiting. Jordan Yuan, DO [facility] [address] [place] [address] Reviewed: Follow Up Care 03/09/2023 13:56:15 With:Jordan Yuan Address: [address] [place] [address] Business (1) When:04/19/2023 14:15:00 With:JOHN ASHBY Address: [address] [place], [place] [id number]- Business (1) When: Unknown [facility]09-26-2023 Note [id number]:127[facility] 03-26-2023 Evaluation note* Encounter Date Diagnosis Assessment Notes Treatment Notes Treatment Clinical Notes Mar, Major depressive disorder, single episode, 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) [employer] Other 07-05-2023 Evaluation note* Encounter Date Diagnosis Assessment Notes Treatment Notes Treatment Clinical Notes Jan, Overweight (ICD-10 - E66.3) [employer] Other 07-03-2023 Evaluation note* Encounter Date [...] nervousness and lightheadedness are common w/d symptoms [employer] Other 06-02-2023 Evaluation note* Encounter Date Diagnosis Assessment Notes Treatment Notes Treatment Clinical Notes Dec, Overweight (ICD-10 - E66.3) [employer] Other 06-01-2023 Evaluation note* Encounter Date Diagnosis [...] will be very costly. 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 Monitor BP while taking Exposed Vocalsex [employer] Other 03-30-2023 NoteCONSULTATION PROCEDURE DATE: 10/07/2022 PROCEDURE: [...] at least 80% reduction of pain symptoms.[facility] [id number] NoteCONSULTATION CONSULTATION DATE: 10/07/2022 ADDENDUM: On examination of the right shoulder, the patient did have a positive right sided full can test, a positive Neida's test, Apley's test and cross body test. All four positive on examination date 10/07/2022.[facility] [id number] NoteCONSULTATION CONSULTATION DATE: 10/07/2022 TO: John Ashby [...] activity modification, use of Zanaflex, Lyrica and [place]. RECOMMENDATIONS: I recommend proceeding with a right [...] right shoulder without contrast and physical therapy.[facility] [id number] Evaluation note* Encounter Date Diagnosis Assessment Notes Treatment Notes Treatment Clinical Notes Aug, Anemia (ICD-10 - D64.9) [employer] Other 01-16-2023 Evaluation note* Encounter Date Diagnosis [...] Healthy diet, exercise w/o change in treatment [place] [employer] Other [id number] NoteCONSULTATION PROCEDURE DATE: 07/09/2022 PREOPERATIVE DIAGNOSIS: Right [...] will be followed up in the office.[facility] [id number] NoteCONSULTATION CONSULTATION DATE: 07/09/2022 HISTORY OF PRESENT [...] possible increase in dose. She also takes [place] 5/325 t.i.d. and Zanaflex 4 mg three [...] three months' time, unless otherwise indicated. [facility] [id number] NoteCONSULTATION CONSULTATION DATE: 05/20/2022 HISTORY OF PRESENT [...] medications include Celexa, Lyrica 50 mg b.i.d., [place] 5/325 t.i.d. and Zanaflex. Patient is having [...] level of C3-4. We will refill her [place] at 5/325 t.i.d. Supportive home measures were discussed such as heat and a menthol heat rub, as well as vitamin compliance. The patient agrees to move forward with the plan, will be followed up in the clinic thereafter.[facility] [id number] NoteCONSULTATION PROCEDURE DATE: 02/17/2022 PRE AND POSTOPERATIVE [...] will be followed up in the clinic.[facility] [id number] NotePROCEDURE: XR SHOULDER RT 2V or > COMPARISON: None. HISTORY: Pain of right shoulder joint FINDINGS: BONES:No acute fracture or dislocation. Minimal degenerative changes. Cervical fusion hardware SOFT TISSUES:Negative. No visible soft tissue swelling. EFFUSION:None visible. OTHER: Negative. IMPRESSION: No acute abnormality Electronically authenticated by: VANDANA COLLINS Date: 2022-02-16 19:11[facility] [id number] NoteCONSULTATION CONSULTATION DATE: 02/02/2022 CHIEF COMPLAINT: Right [...] aggravates the pain. The patient currently takes [place] 5/325 t.i.d., wellbutrin 150 mg, Lyrica 50 [...] point tenderness along the right bicipital tendon. 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 IMPRESSION: Current working diagnosis [...] like to proceed. 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 Cold weather and bending bother her as well. Medications include Lyrica 75 mg t.i.d., which she has not been taking for the past two months; Celexa, [place] 5/325 t.i.d., Zanaflex and RINVOQ. She feels that her pain is managed well with her [place], but is concerned about the neuropathic pain [...] in need of a refill for her [place] today, which we will give 5/325 t.i.d. [...] in three months' time unless otherwise indicated. [facility] Signed and Approved by: JACQUIE OLIVAS . 11/12/2021 16:27:00[facility] Future Appointments Appointment Date:04/06/2023 09:30:00 AM Scheduled Provider: Location:[facility] Appointment Type:[facility]gery [facility]Evaluation noteNo Consult [facility] [employer] Other Evaluation note* Diagnosis Right shoulder pain, unspecified chronicity- Primary documented in this encounter [facility] Diagnosis Onset Date Resolution Status Hypertension acute Overweight acute PSVT (paroxysmal supraventricular tachycardia) acute [facility] Work Phone: History general Narrative [...] ACDF C4-6 05/30 Hospitalization History See Above [employer] Other [place] general Narrative - Reported* Type Description Date [...] ar throplasty 03/2023 Hospitalization History See Above [employer] Other Hospital course Narrative No data available for this section [facility] Dis[facility] instructions No data available for this section [facility] CenterProgress note No data available for this section [facility] Summary Purpose Family History Relationship Condition Age [...] section and content) DATE CREATED AUTHOR 12/29/2017 [facility] DATE CREATED AUTHOR AUTHOR'S ORGANIZ ATION 08/29/2018 [facility] DATE CREATED AUTHOR AUTHOR'S ORGANIZ ATION 05/13/2020 [facility] DATE CREATED AUTHOR AUTHOR'S ORGANIZ ATION 10/15/2022 [facility] DATE CREATED AUTHOR AUTHOR'S ORGANIZ ATION 09/10/2023 [facility] DATE CREATED AUTHOR AUTHOR'S ORGANIZ ATION 11/07/2023 [facility] DATE CREATED AUTHOR AUTHOR'S ORGANIZ ATION 11/17/2023 [facility] EPIC REASON FOR VISIT [...] December 28, 2023 End: December 28, 2023 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 [facility] provides no warranty or guarantee of the accuracy or completeness of information in this document.
== END 2024-02-14 14:05 | disposition home or self-care (01) ==
LOC: PM 14:04
PROVIDERS: PCP Internal Medicine; Visit Provider Anesthesiology Pain Medicine
DX: D64.9 Anemia, unspecified (principal); M25.512 Pain in left shoulder
CPT/HCPCS: 36415; 82607; 82728; 82746; 83540; 83550; 85025; G0463

== ENCOUNTER 2024-03-19 14:36 | Outpatient (OUT) | payer BC, MEDICARE, SELFPAY ==
--- NOTE | 2024-03-19 14:45 | CA_ITS ---
Patient Name: ALEXANDER ZAIDI MR#: [id number] : 1960 Exam Date: 03/19/2024 Ordering Doctor: DR John Mcdaniels D.O. ECHOCARDIOGRAM REPORT PROCEDURE: CA ECHO DOPPLER COMPLETE INDICATIONS: Orthostatic hypotension, paroxysmal supraventricular tachy COMPARISON: None. DESCRIPTION: COMPLETE ECHOCARDIOGRAM Real-time transthoracic echocardiography with 2D, M-mode, spectral and color flow Doppler performed. QUALITY: Technical quality was good. LEFT VENTRICLE: Normal chamber size. Mild concentric left ventricular hypertrophy. Global left ventricular systolic function is normal. Calculated left ventricular ejection fraction is 61%. No wall motion abnormalities. LV EF: DIASTOLIC: Normal diastolic function. ATRIAL SEPTUM: LEFT ATRIUM: Normal chamber size. RIGHT ATRIUM: Normal chamber size. RIGHT VENTRICLE: Normal chamber size. Normal right ventricular systolic function. TRICUSPID VALVE: Normal mobility and thickness. No stenosis with trivial regurgitation. No evidence of pulmonary hypertension.RVSP 25mmHg MITRAL VALVE: Normal mobility and thickness. No evidence of mitral valve stenosis. There is no mitral annular calcification. Mild mitral regurgitation. AORTIC VALVE: Normal trileaflet appearance. No visible sclerosis. Normal leaflet mobility. No evidence of aortic valve stenosis. Mild aortic regurgitation. AORTIC ROOT: Normal diameter and appearance. PULMONIC VALVE: Normal thickness and mobility. No stenosis. Trivial regurgitation. PERICARDIUM: No evidence of pericardial effusion. IVC: Collapes with inspirations. Normal size. PLEURA: CONCLUSION: Mild concentric left ventricular hypertrophy. Global left ventricular systolic function is normal. Calculated left ventricular ejection fraction is 61%. No wall motion abnormalities. Normal diastolic function. Mild mitral regurgitation Mild aortic regurgitation. Adult Echocardiography Procedure Report Left Ventricle LVEDD (3.7 - 5.6 cm): 4.44 cm LVESD (2.2 - 4.0 cm): 3.16 cm LVIVS thickness (0.6 - 1.2 cm): 1.20 cm LVPW thickness (0.5 - 1.0 cm): 1.22 cm e': 0.10 m/s E - e': 6.02 LVOT Max Gradient: 2.28 mm[Hg] LVOT Area (cm2): 0.76 m/s Peak Velocity (LVOT): 0.76 m/s Mean Velocity (LVOT): 0.51 m/s LVOT Diameter 2.15 cm Left Ventricular Ejection Fraction: 61.12 % Left Atrium LA Volume Index (2D A2C): 31.91 ml/m2 Left Atrium Systolic Dimension: 2.69 cm Mitral Valve MV E to A Ratio: 0.98 MV Max Gradient: MV Mean Gradient: Mitral Valve A-Wave Peak Velocity: 0.64 m/s Mitral Valve E-Wave Peak Velocity: 0.62 m/s Cardiovascular Orifice Area: Right Ventricle RV Internal Diastolic Dimension: 2.30 cm Aorta AO Root Diam: 3.41 cm Ascending Ao Diam: 3.18 cm Aortic Valve AoV Area (Peak Carlin): 2.69 cm2, 2.69 cm2 AoV Area (VTI): 2.74 cm2, 2.74 cm2 Deceleration [place]: Pressure Half-Time: Peak Velocity(Antegrade Flow): 1.01 m/s Peak Gradient(Antegrade Flow): 4.12 mm[Hg] Mean Velocity(Antegrade Flow): 0.74 m/s Mean Gradient(Antegrade Flow): 2.43 mm[Hg] Velocity Time Integral: 23.12 cm Tricuspid Valve Peak Velocity (Regurgitant Flow): 2.25 m/s, 2.29 m/s, 2.36 m/s Peak Velocity: Pulmonic Valve Mean Gradient: 1.81 mm[Hg], 1.59 mm[Hg], 1.44 mm[Hg] Mean Velocity: 0.64 m/s, 0.60 m/s, 0.57 m/s Peak Velocity: 0.80 m/s Peak Gradient: 3.06 mm[Hg], 2.22 mm[Hg], 2.44 mm[Hg] Right Atrium Right Atrium Systolic Pressure: 19.67 ml, 19.67 ml Dictated by: Fatimah Pittman MD on 03/19/2024 at 18:08 Approved by: Fatimah Pittman MD on 03/19/2024 at 18:18
== END 2024-03-19 14:37 | disposition home or self-care (01) ==
LOC: CARD 14:36
PROVIDERS: PCP Internal Medicine; Visit Provider Internal Medicine
DX: I95.1 Orthostatic hypotension (principal); I47.10 Supraventricular tachycardia, unspecified; I50.32 Chronic diastolic (congestive) heart failure; I42.8 Other cardiomyopathies
CPT/HCPCS: 93306

== ENCOUNTER 2024-03-27 16:57 | Outpatient (OUT) | payer BC, MEDICARE, SELFPAY ==
--- OUTSIDE RECORDS SUMMARY | 2024-03-27 17:07 | XMS_ITS | CCD ---
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 Unavailable [...] Care Unavailable BALL, JOHN Referring Unavailable EBRAHEIM, MARYUIR Admitting Unavailable Ball, John Unavailable DANDRE ., [...] Attending Unavailable BALL, DR LOPEZ Admitting Unavailable SYMONE, DR LOPEZ [...] Attending Unavailable FLOREZ, DR JOHNSON Admitting Unavailable GAUTAM, DR JOHNSON [...] LAKSHMIPATHY ., NARENDALEKS Attending Amy vailable THANH, KATE Attending Unavailable THANH, KATE Admitting Unavailable BALL, DR LOPEZ Primary Care Unavailable BALL, DR LOPEZ Primary Care Unavailable BALL, DR LOPEZ Consulting Unavailable BALL, DR LOPEZ Attending Unavailable BALL, DR LOPEZ Admitting Unavailable THANH, KATE Admitting Unavailable BALL, DR LOPEZ Primary Care Unavailable THANH, KATE Attending Unavailable BALL, DR LOPEZ Primary Care Unavailable FLOREZ, DR JOHNSON Attending Unavailable FLOREZ, DR JOHNSON Admitting Unavailable FLOREZ, DR JOHNSON Consulting Unavailable LAKSHMIPATHY ., NARRORO Admitting Amy vailable LAKSHMIPATHY ., NICOLE Attending Amy vailable SYMONE, DR LOPEZ Primary Care Unavailable VANDANA YUAN Consulting Unavailable LAKSHMIPATHY ., NICOLE Consulting Amy vailable JOHN ASHBY Primary Care Physician Cesia Artis Unavailable Unavailable John Ashby MD Primary Care Provider CAROLINA ZHONG Attending Unavailable BROWN, JORDAN A [...] Attending Unavailable BROWN, JORDAN A Referring Unavailable Kate Scruggs Unavailable Unavailable Anderson, Jordan Rogers Referring Unavailable Anderson, Jordan A Admitting Unavailable Anderson, Jordan A Attending Unavailable Anderson, Jordan A Admitting Unavailable Anderson, Jordan A Attending Unavailable Anderson, Jordan A Referring Unavailable Anderson, Jordan A Referring Unavailable Anderson, Jordan A Admitting Unavailable Anderson, Jordan A Attending Unavailable Anderson, Jordan A Referring Unavailable Anderson, Jordan A Admitting Unavailable Anderson, Jordan A Attending Unavailable Anderson, Jordan A Admitting Unavailable Anderson, Jordan A Attending Unavailable Anderson, Jordan A Referring Unavailable Allergies Allergy Classification Reported Allergen(s) Allergy Type Date of Onset Reaction(s) Facility (1 source) 12952,00; Translations: [Unknown] Propensity to adverse reactions (disorder) 2 [facility] Repository (18 sources) Cephalexin Drug Allergy Unknown [facility] Other (7 sources) patient allergy list reviewed by nurse or physicia Propensity to adverse reactions 4 Comment:Done [facility] Other Medications Current Medications Medication Drug Class(es) Dates Sig (Normalized) Sig (Original) acetaminophen 325 mg / HYDROcodone bitartrate 5 mg oral tablet (4 sources) Opioid Agonist Start: 03-19-2024 take 1 tablet by mouth every six hours acetaminophen-hyd rocodone 325 mg-5 mg oral tablet 1 tab(s), Oral, q6hr, Refill(s) 0, Pain Start Date: 03/19/24 Status: Ordered Start: 06-30-2023 take 1 tablet by anne th three times daily as needed HYDROcodone-acetaminophen ([place]) 5-325 MG tablet TAKE 1 TABLET BY MOUTH 3 TIMES A DAY NEEDED FOR PAIN*MUS LAST 30 DAYS 0 06/30/2023 Active acetaminophen 325 mg / oxyCODONE hydrochloride 5 mg oral tablet (6 sources) Opioid Agonist Start: 04-06-2023 Percocet 5 mg- 325 mg oral tablet See Instructions, 40 tab(s), [...] pain, # 60 cap(s), Refills(s) 0, Pharmacy: [facility]/pharmacy #[id number], 160, cm, 03/25/23 6:16:00 EDT, Height/Length Dosing, 73.5, kg, 03/25/23 6:16:00 EDT, Weight Dosing Start Date: 04/06/23 Status: Ordered cephalexin 500 mg oral capsule (1 source) Cephalosporin Antibacterial Start: 04-06-2023 End: 04-13-2023 take 1 capsule by mouth every eight hours Keflex 500 mg Cap 500 mg = 1 cap(s), Oral, q8hr, X 7 day(s), # 21 cap(s), Refills(s) 0, Pharmacy: [facility]/pharmacy #[id number], 160, cm, 03/25/23 6:16:00 EDT, Height/Length Dosing, 73.5, kg, 03/25/23 6:16:00 EDT, Weight Dosing Start Date: 04/06/23 Stop Date: 04/13/23 Status: Ordered citalopram 10 mg oral tablet (17 sources) Serotonin Reuptake Inhibitor Start: 03-19-2024 take 1 tablet by mouth once daily citalopram 10 mg Tab 10 mg = 1 tab(s), Oral, Daily, Refills(s) 0, Depression Start Date: 03/19/24 Status: Ordered Start: 01-26-2024 Citalopram Act hal 0 .ROUTE .COMPLEX 90 January 26, 2024 8:54am TAKE 1 TABLET DAILY Start: 01-26-2024 End: 01-26-2024 take 10 mg by mouth once daily Citalopram Discontinued 10 MG PO Daily January 26, 2024 12:00am January 26, 2024 8:55am Start: 08-17-2023 take 1 tablet by anne th every [...] constipation, # 20 cap(s), Refills(s) 0, Pharmacy: [facility]/pharmacy #[id number], 160, cm, 03/25/23 6:16:00 EDT, [...] = 1 tab(s), Oral, Bedtime, Refills(s) 0, High blood pressure Start Date: 04/06/23 Status: Ordered omeprazole 40 mg delayed release oral capsule (20 sources) Proton Pump Inhibitor Start: 09-27-2023 take 40 mg by mouth once daily Omeprazole Active 40 MG PO Daily September 27, 2023 12:00am Omeprazole 40 MG 1 capsule Orally Once a day, on empty stomach, followed in 30 minutes by bkfst for 90 days Active pregabalin 150 mg oral capsule (10 sources) Start: 03-24-2023 take 1 capsule by [...] 2023 2:54pm take 1 capsule by mo ut every six hours tiZANidine HCl 4 MG 1 tablet as needed Oral every 6 hours for 30 Active 24 hr upadacitinib 15 mg extended release oral tablet (20 sources) Start: 03-24-2023 take 15 mg by mouth once daily Upadacitinib Active 15 MG PO Daily September 27, 2023 12:00am Completed/Discontinued Medications Medication Drug Class(es) Dates Sig (Normalized) Sig (Original) alendronic acid 70 mg oral tablet (3 sources) Bisphosphonate Start: 06-30-2018 End: 09-27-2023 take 1 tablet by mouth every week Alendronate (Fosamax) 70 mg Tablet Discontinued 70 MG PO every week June 30, 2018 1:00am September 27, 2023 2:54pm aspirin 81 mg delayed release oral tablet (6 sources) Platelet Aggregation Inhibitor, Nonsteroidal Anti-inflammatory Drug [...] hydrochloride 360 mg extended release oral tablet (3 sources) Calcium Channel Lisandra Start: 06-30-2018 End: 09-27-2023 take 360 mg by mouth once daily Diltiazem Hcl Discontinued 360 MG PO Daily June 30, 2018 1:00am September 27, 2023 2:50pm doxycycline hyclate 100 mg oral capsule (9 sources) Tetracycline-cl ass Drug Start: 09-27-2023 End: 09-28-2023 take 100 mg by mouth twice daily Doxycycline Hyclate Discontinued 100 MG PO Twice daily September 27, 2023 12:00am September 28, 2023 3:15pm Start: 06-28-2023 take 1 capsule by mo [facility] every twelve hours Doxycycline Hyclate 100 MG 1 capsule Orally Twice a day for 5 days Jun, Active Start: 07-06-2018 End: 09-27-2023 take 100 mg by mouth twice daily Doxycycline Hyclate Discontinued 100 MG PO Twice daily 10 July 06, 2018 1:00am September 27, 2023 2:50pm ibuprofen 800 mg oral tablet (3 sources) Nonsteroidal Anti-inflammatory Drug Start: 07-06-2018 End: [...] Start: 01-12-2023 take 1 tablet by anne th once daily Phentermine HCl 37.5 MG take [...] Active traZODone hydrochloride 100 mg oral tablet (3 sources) Serotonin Reuptake Inhibitor Start: 06-30-2018 End: [...] tachycardia, unspecified] Onset: 07-15-2017 Chronic Cardiac dysrhythmias (4 sources) Bradycardia 03-24-2023 Episodic Congestive heart failure; nonhypertensive (16 sources) Chronic systolic heart failure; Translations: [Chronic systolic (congestive) heart failure] Onset: 09-05-2018 09-27-2023 Chronic Deficiency and other anemia (16 sources) Anemia; Translations: [Anemia, unspecified] 09-27-2023 Episodic [...] (suspected) exposure to COVID-19] Episodic Intestinal infection (16 sources) Infectious colitis, enteritis and gastroenteritis; Translations: [Infectious gastroenteritis and colitis, unspecified] 09-27-2023 Episodic Malaise and fatigue (16 sources) Fatigue; Translations: [Other fatigue] 09-27-2023 Episodic [...] monitoring] Episodic Other aftercare (1 source) 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; Translations: [OTH RESIDENTIAL CURRENT DRUG THERAPY] Onset: 09-17-2022 Episodic Other aftercare (8 sources) Therapeutic drug level - finding; Translations: [Encounter for therapeutic drug level monitoring] Episodic Other aftercare (2 sources) Encounter for therapeutic drug level monitoring; Translations: [Encounter for therapeutic drug level monitoring] Episodic Other circulatory disease (18 sources) History of pericarditis; Translations: [Personal history of other diseases of the circulatory system] Episodic Other circulatory disease (11 sources) H/O: cardiovascular disease; Translations: [Personal history of other diseases of the circulatory system] 09-27-2023 Episodic Other circulatory disease (1 source) Personal history of other diseases of the circulatory system; Translations: [Personal history of other diseases of the circulatory system] Episodic Other connective tissue disease (15 sources) Tear of right rotator cuff; Translations: [...] Chronic Other nutritional; endocrine; and metabolic disorders (20 sources) Overweight; Translations: [Overweight] 09-02-2023 Episodic Other nutritional; endocrine; and metabolic disorders (11 sources) Overweight; Translations: [Overweight] Episodic Other screening for suspected conditions (not mental disorders or infectious disease) (5 sources) Encounter for screening mammogram for malignant neoplasm of breast; Translations: [ENC SCR MAMMO MALIG NEOPLASM BREAST] Onset: 2022 Episodic Mae-; endo-; and myocarditis; cardiomyopathy (except that caused by tuberculosis or sexually transmitted disease) (13 sources) Cardiomyopathy associated with another disorder; Translations: [...] stenosis / foraminal stenosis() Onset: 10-13-2017 Unclassified (4 sources) History of lung lobectomy 03-24-2023 Viral [...] examination] Onset: 01-05-2011 Episodic Other circulatory disease (11 sources) Orthostatic hypotension; Translations: [Orthostatic hypotension] Onset: [...] [Radiculopathy, cervical region] Onset: 10-20-2017 Episodic Syncope (12 sources) Syncope and collapse; Translations: [Syncope and [...] Name Value Interpretation Reference Range Facility XR Chest 2 Viewson XR Chest 2 Views Exam Date/Time: 03/19/2024 12:57 EDT Reason for Exam: P.A.T. Report IMPRESSION: NO RADIOGRAPHIC EVIDENCE OF ACTIVE DISEASE IN THE CHEST. CLINICAL INFORMATION: P.A.T. COMPARISON: None available. FINDINGS: 2 views. Remote internal fixation thoracic spine. Bipolar right shoulder arthroplasty. Mild elevation right diaphragm. Cardiopericardial silhouette is normal. Pulmonary vasculature is normal. Lungs are clear. Ordering Provider: Kaur Ahmad FINAL REPORT Dictated: 03/20/2024 8:38 am John Neal MD Signed (Electronic Signature): 03/20/2024 8:38 am Signed by: John Neal MD Transcribed by: DANISHA Technologist: DARLING Technical Comments Radiation Dose: Ka,r in mGy = na DAP = na Normal [facility] BMPon 03-19-2024 Anion gap [Moles/Vol] 9 mmol/L Normal 6-16 [facility] Comment on above: Performed By: #### 2 [id number] #### [facility] [address] [place] [address] Calcium [Mass/Vol] 9.1 mg/dL Normal 8.9-11.1 [facility] Comment on above: Performed By: #### 2 [id number] #### [facility] [address] [place] [address] Chloride [Moles/Vol] 109 mmol/L Normal 101-111 [facility] Comment on above: Performed By: #### 2 [id number] #### [facility] [address] [place] [address] CO2 [Moles/Vol] 27 mmol/L Normal 21-31 [facility] Comment on above: Performed By: #### 2 [id number] #### [facility] [address] [place] [address] Creatinine [Mass/Vol] 1.1 mg/dL Normal 0.5-1.3 [facility] Comment on above: Performed By: #### 2 [id number] #### [facility] [address] [place] [address] Glucose [Mass/Vol] 85 mg/dL Normal 55-199 [facility] Comment on above: Performed By: #### 2 [id number] #### [facility] [address] [place] [address] Potassium [Moles/Vol] 3.8 mmol/L Normal 3.5-5.3 [facility] Comment on above: Performed By: #### 2 [id number] #### [facility] [address] [place] [address] Sodium [Moles/Vol] 141 mmol/L Normal 135-145 [facility] Comment on above: Performed By: #### 2 [id number] #### [facility] [address] [place] [address] Urea nitrogen [Mass/Vol] 17 mg/dL Normal 5-21 [facility] Comment on above: Performed By: #### 2 [id number] #### [facility] [address] [place] [address] Urea nitrogen/Creatinine [Mass ratio] 16 No Units Normal 10-20 [facility] Comment on above: Performed By: #### 2 [id number] #### [facility] [address] [place] [address] CBC w/ Auto Diffon 4 Basophils/100 WBC (Bld) 0.6 % Normal 0.0-2.0 [facility] Comment on above: Performed By: #### 2 [id number] #### [facility] [address] [place] [address] Basophils/Leukocytes Auto (Bld) [Pure # fraction] 0.0 E9/L Normal 0.0-0.2 [facility] Comment on above: Performed By: #### 2 [id number] #### [facility] [address] [place] [address] Eosinophils (Bld) [#/Vol] 0.1 E9/L Normal 0.0-0.5 [facility] Comment on above: Performed By: #### 2 [id number] #### [facility] [address] [place] [address] Eosinophils/100 WBC (Bld) 1.6 % Normal 0.0-8.0 [facility] Comment on above: Performed By: #### 2 [id number] #### [facility] [address] [place] [address] Erythrocyte distribution width (RBC) [Ratio] 14.7 % High 10.9-14.2 [facility] Comment on above: Performed By: #### 2 [id number] #### [facility] [address] [place] [address] Hematocrit (Bld) [Volume fraction] 27.9 % Low 34.0-46.0 [facility] Comment on above: Performed By: #### 2 [id number] #### [facility] [address] [place] [address] Hemoglobin (Bld) [Mass/Vol] 9.8 g/dL Low 12.0-16.0 [facility] Comment on above: Performed By: #### 2 [id number] #### [facility] [address] [place] [address] Lymphocytes (Bld) [#/Vol] 1.1 E9/L Normal 1.0-4.0 [facility] Comment on above: Performed By: #### 2 [id number] #### [facility] [address] [place] [address] Lymphocytes/100 WBC (Bld) 28.9 % Normal 14.0-50.0 [facility] Comment on above: Performed By: #### 2 [id number] #### [facility] [address] [place] [address] MCH (RBC) [Entitic mass] 33.8 pg Normal 27.0-34.0 [facility] Comment on above: Performed By: #### 2 [id number] #### [facility] [address] [place] [address] MCHC (RBC) [Mass/Vol] 35.1 g/dL Normal 31.4-36.0 [facility] Comment on above: Performed By: #### 2 [id number] #### [facility] [address] [place] [address] MCV (RBC) [Entitic vol] 96.2 fL Normal 80.0-100.0 [facility] Comment on above: Performed By: #### 2 [id number] #### [facility] [address] [place] [address] Monocytes (Bld) [#/Vol] 0.6 E9/L Normal 0.2-1.0 [facility] Comment on above: Performed By: #### 2 [id number] #### [facility] [address] [place] [address] Neutrophils (Bld) [#/Vol] 2.0 E9/L Normal 2.0-7.5 [facility] Comment on above: Performed By: #### 2 [id number] #### [facility] [address] [place] [address] Neutrophils/100 WBC (Bld) 52.8 % Normal 36.0-75.0 [facility] Comment on above: Performed By: #### 2 [id number] #### [facility] [address] [place] [address] Platelet 211.0 E9/L Normal 150.0-500.0 [facility] Comment on above: Performed By: #### 2 [id number] #### [facility] [address] [place] [address] Platelet mean volume (Bld) [Entitic vol] 7.0 fL Normal 6.4-10.8 [facility] Comment on above: Performed By: #### 2 [id number] #### [facility] [address] [place] [address] RBC (Bld) [#/Vol] 2.9 E12/L Low 4.3-5.9 [facility] Comment on above: Performed By: #### 2 [id number] #### [facility] [address] [place] [address] WBC corrected for nucl RBC Auto (Bld) [#/Vol] 3.8 E9/L Low 4.0-11.0 [facility] Comment on above: Result Comment: Mae pheral smear review performed. Performed By: #### 2 [id number] #### [facility] [address] [place] [address] CHEMISTRYOrdered By: SYSTEM SYSTEM on 03-19-2024 Anion gap [Moles/Vol] 9 mmol/L Normal 6 - 16 mEq/L [facility] Calcium [Mass/Vol] 9.1 mg/dL Normal 8.9 - 11. 1 mg/dL [facility] Chloride [Moles/Vol] 109 mmol/L Normal 101 - 1 11 mmol/L [facility] CO2 [Moles/Vol] 27 mmol/L Normal 21 - 31 mmol/L [facility] Creatinine [Mass/Vol] 1.1 mg/dL Normal 0.5 - 1.3 mg/dL [facility] eGFR 56 mL/min/1.73 m2 Low >=59mL/min /1 .73 m2 [facility] Glucose [Mass/Vol] 85 mg/dL Normal 55 - 199 mg/dL [facility] Potassium [Moles/Vol] 3.8 mmol/L Normal 3.5 - 5.3 mmol/L [facility] Sodium [Moles/Vol] 141 mmol/L Normal 135 - 145 mmol/L [facility] Urea nitrogen [Mass/Vol] 17 mg/dL Normal 5 - 21 mg/dL [facility] Urea nitrogen/Creatinine [Mass ratio] 16 mg/mg Normal 10 - 20 [facility] HEMATOLOGYOrdered By: SYSTEM SYSTEM on 03-19-2024 Basophils/100 WBC (Bld) 0.6 % Normal 0.0 - 2.0 % [facility] Basophils/Leukocytes Auto (Bld) [Pure # fraction] 0.0 E9/L Normal 0.0 - 0.2 E9/L [facility] Eosinophils (Bld) [#/Vol] 0.1 E9/L Normal 0.0 - 0.5 E9/L [facility] Eosinophils/100 WBC (Bld) 1.6 % Normal 0.0 - 8.0 % [facility] Erythrocyte distribution width (RBC) [Ratio] 14.7 % High 10.9 - 14.2 % [facility] Hematocrit (Bld) [Volume fraction] 27.9 % Low 34.0 - 46.0 % [facility] Hemoglobin (Bld) [Mass/Vol] 9.8 g/dL Low 12.0 - 16.0 gm/dL [facility] Lymphocytes (Bld) [#/Vol] 1.1 E9/L Normal 1.0 - 4.0 E9/L [facility] Lymphocytes/100 WBC (Bld) 28.9 % Normal 14.0 - 50.0 % [facility] MCH (RBC) [Entitic mass] 33.8 pg Normal 27.0 - 34.0 pg [facility] MCHC (RBC) [Mass/Vol] 35.1 g/dL Normal 31.4 - 36.0 gm/dL [facility] MCV (RBC) [Entitic vol] 96.2 fL Normal 80.0 - 100.0 fL [facility] Monocytes (Bld) [#/Vol] 0.6 E9/L Normal 0.2 - 1.0 E9/L [facility] Monocytes/100 WBC (Bld) 16.1 % High 4.0 - 14.0 % [facility] Neutrophils (Bld) [#/Vol] 2.0 E9/L Normal 2.0 - 7.5 E9/L [facility] Neutrophils/100 WBC (Bld) 52.8 % Normal 36.0 - 75.0 % [facility] Platelet 211.0 E9/L Normal 150.0 - 500.0 E9/L [facility] Platelet mean volume (Bld) [Entitic vol] 7.0 fL Normal 6.4 - 10.8 fL [facility] RBC (Bld) [#/Vol] 2.9 E12/L Low 4.3 - 5.9 E12/L [facility] WBC corrected for nucl RBC Auto (Bld) [#/Vol] 3.8 E9/L Low 4.0 - 11.0 E9/L [facility] Comment on above: Result Comment: Mae pheral smear review performed. eGFRon 03-19-2024 eGFR 56 mL/min/1.73 m2 Low >=59 [facility] Comment on above: Order Comment: Order added by Discern Expert. Performed By: #### 1 [id number] #### [facility] [address] [place] [address] Basophils Auto (Bld) [#/Vol] on 02-14-2024 Basophils (Bld) [#/Vol] 0.0 10 3/uL 0.0-0.1 [facility] Basophils/100 WBC Auto (Bld) on 02-14-2024 Basophils/100 WBC (Bld) 0.8 % 0.2-2.0 [facility] Eosinophils/100 WBC Auto (Bl d)on 02-14-2024 Eosinophils/100 WBC (Bld) 1.5 % 0.9-7.0 [facility] Erythrocyte distribution wid th Auto (RBC) [Ratio]on 02-14-2024 Erythrocyte distribution width (RBC) [Ratio] 15.1 % High 11.0-15.0 [facility] Hematocrit Auto (Bld) [Volum e fraction]on 02-14-2024 Hematocrit (Bld) [Volume fraction] 35.4 % Low 36.0-48.0 [facility] Hemoglobin [Mass/volume] in Bloodon 02-14-2024 Hemoglobin (Bld) [Mass/Vol] 11.0 g/dL Low 12.0-16.0 [facility] Iron binding capacity [Mass/ volume] in Serum or Plasmaon 02-14-2024 Iron binding capacity [Mass/Vol] 303.0 ug/dL 250.0-450.0 [facility] Iron saturation [Mass Fracti on] in Serum or Plasmaon 02-14-2024 Iron saturation [Mass fraction] 81.2 % [facility] Laboratory - Chemistry and C hemistry - challengeon 02-14-2024 Cobalamin (Vitamin B12) [Mass/Vol] 225.0 pg/mL 193.0-986.0 [facility] Ferritin [Mass/Vol] 338.0 ng/mL High 8.0-252.0 [facility] Iron [Mass/Vol] 246.0 ug/dL High 50.0-170.0 [facility] - Hematology and Cell countson 02-14-2024 Immature granulocytes/100 WBC (Bld) 0.8 % High 0.0-0.5 [facility] Leukocytes [#/volume] correc fito for nucleated erythrocytes in Blood by Automated counon 02-14-2024 WBC corrected for nucl RBC Auto (Bld) [#/Vol] 4.7 10 3/uL 4.0-11.0 [facility] Lymphocytes Auto (Bld) [#/Vo l]on 02-14-2024 Lymphocytes (Bld) [#/Vol] 2.3 10 3/uL 1.2-3.8 [facility] Lymphocytes/100 WBC Auto (Bl d)on 02-14-2024 Lymphocytes/100 WBC (Bld) 48.7 % 20.5-60.0 [facility] MCH Auto (RBC) [Entitic mass ]on 02-14-2024 MCH (RBC) [Entitic mass] 31.9 pg 26.7-34.0 [facility] MCHC Auto (RBC) [Mass/Vol]on 02-14-2024 MCHC (RBC) [Mass/Vol] 31.1 g/dL 29.9-35.2 [facility] MCV Auto (RBC) [Entitic vol] on 02-14-2024 MCV (RBC) [Entitic vol] 102.6 fL High 81.0-99.0 [facility] Monocytes Auto (Bld) [#/Vol] on 02-14-2024 Monocytes (Bld) [#/Vol] 0.6 10 3/uL 0.3-0.8 [facility] Monocytes/100 WBC Auto (Bld) on 02-14-2024 Monocytes/100 WBC (Bld) 13.3 % High 1.7-12.0 [facility] Neutrophils Auto (Bld) [#/Vo l]on 02-14-2024 Neutrophils (Bld) [#/Vol] 1.7 10 3/uL 1.4-6.5 [facility] Neutrophils/100 WBC Auto (Bl d)on 02-14-2024 Neutrophils/100 WBC (Bld) 34.9 % Low 43.0-75.0 [facility] No Panel Informationon 02-13 Eosinophils # (Auto) 0.1 10 3/uL 0.0-0.7 [facility] Immature Granulocyte # (Auto) 0.04 10 3/uL High 0.00-0.03 [facility] Folate 9.40 ng/mL 8.60-58.90 [facility] Platelet mean volume Auto (B ld) [Entitic vol]on 02-14-2024 Platelet mean volume (Bld) [Entitic vol] 9.1 fL Low 9.5-13.5 [facility] Platelets Auto (Bld) [#/Vol] on 02-14-2024 Platelets (Bld) [#/Vol] 197 10 3/uL 150-450 [facility] RBC Auto (Bld) [#/Vol]on RBC (Bld) [#/Vol] 3.45 10 6/uL Low 4.20-5.[address] [facility] Basophils Auto (Bld) [#/Vol] on 02-02-2024 Basophils (Bld) [#/Vol] 0.0 10 3/uL 0.0-0.1 [facility] Basophils/100 WBC Auto (Bld) on 02-02-2024 Basophils/100 WBC (Bld) 0.8 % 0.2-2.0 [facility] Eosinophils/100 WBC Auto (Bl d)on 02-02-2024 Eosinophils/100 WBC (Bld) 2.1 % 0.9-7.0 [facility] Erythrocyte distribution wid th Auto (RBC) [Ratio]on 02-02-2024 Erythrocyte distribution width (RBC) [Ratio] 14.2 % 11.0-15.0 [facility] Estimated glomerular filtrat ion rate (GFR) non- Americanon 02-02-2024 GFR/1.73 sq M.predicted among non-blacks MDRD (S/P/Bld) [Vol rate/Area] 51 mL/min/{1.73_m2} Low >=60 [facility] Globulin Calc (S) [Mass/Vol] on 02-02-2024 Globulin (S) [Mass/Vol] 2.9 g/dL [facility] Hematocrit Auto (Bld) [Volum e fraction]on 02-02-2024 Hematocrit (Bld) [Volume fraction] 31.9 % Low 36.0-48.0 [facility] Hemoglobin [Mass/volume] in Bloodon 02-02-2024 Hemoglobin (Bld) [Mass/Vol] 10.2 g/dL Low 12.0-16.0 [facility] Laboratory - Chemistry and C hemistry - challengeon 02-02-2024 Albumin [Mass/Vol] 3.9 g/dL 3.4-5.0 [facility] ALP [Catalytic activity/Vol] 48 U/L 46-116 [facility] ALT [Catalytic activity/Vol] 20 U/L 14-59 [facility] AST [Catalytic activity/Vol] 23 U/L 15-37 [facility] Bilirubin [Mass/Vol] 0.5 mg/dL 0.2-1.0 [facility] Calcium [Mass/Vol] 9.1 mg/dL 8.5-10.1 [facility] Chloride [Moles/Vol] 108 mmol/L High 98-107 [facility] CO2 [Moles/Vol] 24.8 mmol/L 21.0-32.0 [facility] Creatinine [Mass/Vol] 1.09 mg/dL High 0.55-1.02 [facility] GFR/1.73 sq M.predicted MDRD (S/P/Bld) [Vol rate/Area] mL/min/{1.73_m2} >=60 [facility] Glucose [Mass/Vol] 87 mg/dL 74-106 [facility] Potassium [Moles/Vol] 3.9 mmol/L 3.5-5.1 [facility] Protein [Mass/Vol] 6.8 g/dL 6.4-8.2 [facility] Sodium [Moles/Vol] 144 mmol/L 136-145 [facility] Urea nitrogen [Mass/Vol] 17.0 mg/dL 7.0-18.0 [facility] Urea nitrogen/Creatinine [Mass ratio] 15.6 mg/mg [facility] Laboratory - Hematology and Cell countson 02-02-2024 ESR (Bld) [Velocity] 12 mm/h <=30 [facility] Immature granulocytes/100 WBC (Bld) 0.5 % 0.0-0.5 [facility] Leukocytes [#/volume] correc fito for nucleated erythrocytes in Blood by Automated counon 02-02-2024 WBC corrected for nucl RBC Auto (Bld) [#/Vol] 3.8 10 3/uL Low 4.0-11.0 [facility] Lymphocytes Auto (Bld) [#/Vo l]on 02-02-2024 Lymphocytes (Bld) [#/Vol] 1.5 10 3/uL 1.2-3.8 [facility] Lymphocytes/100 WBC Auto (Bl d)on 02-02-2024 Lymphocytes/100 WBC (Bld) 40.3 % 20.5-60.0 [facility] MCH Auto (RBC) [Entitic mass ]on 02-02-2024 MCH (RBC) [Entitic mass] 31.7 pg 26.7-34.0 [facility] MCHC Auto (RBC) [Mass/Vol]on 02-02-2024 MCHC (RBC) [Mass/Vol] 32.0 g/dL 29.9-35.2 [facility] MCV Auto (RBC) [Entitic vol] on 02-02-2024 MCV (RBC) [Entitic vol] 99.1 fL High 81.0-99.0 [facility] Monocytes Auto (Bld) [#/Vol] on 02-02-2024 Monocytes (Bld) [#/Vol] 0.6 10 3/uL 0.3-0.8 [facility] Monocytes/100 WBC Auto (Bld) on 02-02-2024 Monocytes/100 WBC (Bld) 16.1 % High 1.7-12.0 [facility] Neutrophils Auto (Bld) [#/Vo l]on 02-02-2024 Neutrophils (Bld) [#/Vol] 1.5 10 3/uL 1.4-6.5 [facility] Neutrophils/100 WBC Auto (Bl d)on 02-02-2024 Neutrophils/100 WBC (Bld) 40.2 % Low 43.0-75.0 [facility] No Panel Informationon 02-01 Eosinophils # (Auto) 0.1 10 3/uL 0.0-0.7 [facility] Immature Granulocyte # (Auto) 0.02 10 3/uL 0.00-0.03 [facility] Platelet mean volume Auto (B ld) [Entitic vol]on 02-02-2024 Platelet mean volume (Bld) [Entitic vol] 9.3 fL Low 9.5-13.5 [facility] Platelets Auto (Bld) [#/Vol] on 02-02-2024 Platelets (Bld) [#/Vol] 236 10 3/uL 150-450 [facility] RBC Auto (Bld) [#/Vol]on RBC (Bld) [#/Vol] 3.22 10 6/uL Low 4.20-5.[address] [facility] Serum or plasma albumin/glob ulin mass ratioon 02-02-2024 Albumin/Globulin [Mass ratio] 1.3 {ratio} [facility] Serum or plasma anion gap de terminationon 02-02-2024 Anion gap [Moles/Vol] 15.1 mmol/L [facility] Office Visiton 11-04-2023 Follow-up visit [id number] Radha Zaidi 1960 F Date Provider Department Center 11/04/2023 [facility] Family History Family history unknown: Yes Level of Service:86595 [place] OFFICE/OUTPATIENT ESTABLISHED MOD MDM 30 MIN Reason for Visit and Comments: Follow-up [686486] - 2 year Patient has been taking metoprolol 1 tablet QD Normal [facility] CT Upper Extremity [...] MD Transcribed by: DANISHA Technologist: ARNULFO Shah [facility] Lab Miscellaneous-LCon Lab Miscellaneous COMMENT Invalid Interpretation Code [facility] Comment on above: Result Comment: Test Ordered: [id number] Interleukin-6, Serum Interleukin-6, Serum <2.5 pg/mL Reference [...] endotracheal intubation or mechanical ventilation. Performed at: [facility] [address] [place] [address], [place] [phone] PhD Saturnino Morse Performed By: #### 1 [id number] ####[address] [place] [address] CBC w/ Auto Diffon 4 Basophil Absolute 0.0 E9/L Normal 0.0-0.2 [facility] Comment on above: Performed By: #### 2 549895, 3472981, [id number] #### [facility] [address] [place] [address] Basophils/100 WBC (Bld) 0.4 % Normal 0.0-2.0 [facility] Comment on above: Performed By: #### 2 609581, 6375814, [id number] #### [facility] [address] [place] [address] Eos Absolute 0.0 E9/L Normal 0.0-0.5 [facility] Comment on above: Performed By: #### 2 586386, 7141906, 35387064 #### [facility] [address] [place] [address] Eosinophils/100 WBC (Bld) 0.2 % Normal 0.0-8.0 [facility] Comment on above: Performed By: #### 2 236604, 8549753, 54273791 #### [facility] [address] [place] [address] Erythrocyte distribution width (RBC) [Ratio] 14.3 % High 10.9-14.2 [facility] Comment on above: Performed By: #### 2 497548, 3976866, 87580940 #### [facility] [address] [place] [address] Hematocrit (Bld) [Volume fraction] 40.0 % Normal 34.0-46.0 [facility] Comment on above: Performed By: #### 2 724479, 7678624, 13469391 #### [facility] [address] [place] [address] Hemoglobin (Bld) [Mass/Vol] 12.7 g/dL Normal 12.0-16.0 [facility] Comment on above: Performed By: #### 2 342166, 5254523, 49146754 #### [facility] [address] [place] [address] Lymph Absolute 0.9 E9/L Low 1.0-4.0 [facility] Comment on above: Performed By: #### 2 210575, 9601801, 98245224 #### [facility] [address] [place] [address] Lymphocytes/100 WBC (Bld) 25.2 % Normal 14.0-50.0 [facility] Comment on above: Performed By: #### 2 338546, 2605041, 06548241 #### [facility] [address] [place] [address] MCH (RBC) [Entitic mass] 30.6 pg Normal 27.0-34.0 [facility] Comment on above: Performed By: #### 2 053074, 7729594, 76863983 #### [facility] [address] [place] [address] MCHC (RBC) [Mass/Vol] 31.7 g/dL Normal 31.4-36.0 [facility] Comment on above: Performed By: #### 2 025564, 0561680, 86052930 #### [facility] [address] [place] [address] MCV (RBC) [Entitic vol] 96.5 fL Normal 80.0-100.0 [facility] Comment on above: Performed By: #### 2 042809, 9044220, 53880400 #### [facility] [address] [place] [address] [place] Absolute 0.3 E9/L Normal 0.2-1.0 [facility] Comment on above: Performed By: #### 2 477459, 0437057, 38461444 #### [facility] [address] [place] [address] Monocytes/100 WBC (Bld) 7.3 % Normal 4.0-14.0 [facility] Comment on above: Performed By: #### 2 645868, 7219226, 67445317 #### [facility] [address] [place] [address] Neutro Absolute 2.3 E9/L Normal 2.0-7.5 [facility] Comment on above: Performed By: #### 2 177891, 0298672, 72563531 #### [facility] [address] [place] [address] Neutro Auto 66.9 % Normal 36.0-75.0 [facility] Comment on above: Performed By: #### 2 139464, 0107898, 87879783 #### [facility] [address] [place] [address] Platelet 257.0 E9/L Normal 150.0-500.0 [facility] Comment on above: Performed By: #### 2 435174, 5545610, 22890306 #### [facility] [address] [place] [address] Platelet mean volume (Bld) [Entitic vol] 7.4 fL Normal 6.4-10.8 [facility] Comment on above: Performed By: #### 2 533115, 9379424, 03368403 #### [facility] [address] [place] [address] RBC 4.1 E12/L Low 4.3-5.9 [facility] Comment on above: Performed By: #### 2 512717, 4387480, 07414772 #### [facility] [address] [place] [address] WBC 3.4 E9/L Low 4.0-11.0 [facility] Comment on above: Performed By: #### 2 466934, 3000088, 75142910 #### [facility] [address] [place] [address] CHEMISTRYOrdered By: SYSTEM SYSTEM on 09-06-2023 CRP mg/dL Normal <=1.9mg/dL Remisol Chem CRPon 09-06-2023 CRP [Mass/Vol] mg/L Normal <=1.9 [facility] Comment on above: Performed By: #### 2 260475, 4946374, 28370556 #### [facility] [address] [place] [address] Consent for Treatmenton 08-12 Consent for Treatment [id number]#1 .00TIFF Normal [facility] HEMATOLOGYOrdered By: SYSTEM SYSTEM on 09-06-2023 [...] Normal 80.0 - 100.0 fL Remisol Heme [place] Absolute 0.3 E9/L Normal 0.2 - 1.0 [...] 14 mm/h Normal 0 - 34 mm/hr [facility] HemeAutoSS Lab Miscellaneous-LCon 09-06 Test Code 302185 Invalid Interpretation Code [facility] Comment on above: Performed By: #### 1 [id number] ####[facility] [address] [place] [address] Test Name interleukin 6 Invalid Interpretation Code [facility] Comment on above: Performed By: #### 1 [id number] ####[facility] [address] [place] [address] Physician Orderon 09-06-2023 Physician Order [id number]#1 .00TIFF Normal [facility] Reference Laboratory Testing Ordered By: Jojo Gonsales on 09-06-2023 Test Code 353683 1 Invalid Interpretation Code [facility] SendOuts Test Name interleukin 6 Invalid Interpretation Code [facility] SendOutsSS Sed Rate Automatedon 024 ESR (Bld) [Velocity] 14 mm/h Normal 0-34 [facility] Comment on above: Performed By: #### 2 272561, 5236239, 47457695 #### [facility] [address] [place] [address] Physician Orderon 08-31-2023 Physician Order [id number]#1 .00TIFF Normal [facility] Basophils Auto (Bld) [#/Vol] on 08-30-2023 Basophils (Bld) [#/Vol] 0.0 10 3/uL 0.0-0.1 [facility] Basophils/100 WBC Auto (Bld) on 08-30-2023 Basophils/100 WBC (Bld) 0.8 % 0.2-2.0 [facility] Cholesterol in LDL Calc [Mas s/Vol]on 08-30-2023 Cholesterol in LDL [Mass/Vol] 152.0 mg/dL [facility] Comment on above: <100 mg/dl [id number] 0-129 mg/dl NEAR OR ABOVE [id number] mg/dl BORDERLINE VEBL137-852 mg/dl HIGH>190 mg/dl VERY HIGH Cholesterol in VLDL Calc [Ma ss/Vol]on 08-30-2023 Cholesterol in VLDL [Mass/Vol] 20.2 mg/dL [facility] Eosinophils/100 WBC Auto (Bl d)on 08-30-2023 Eosinophils/100 WBC (Bld) 4.2 % 0.9-7.0 [facility] Erythrocyte distribution wid th Auto (RBC) [Ratio]on 08-30-2023 Erythrocyte distribution width (RBC) [Ratio] 13.4 % 11.0-15.0 [facility] Estimated glomerular filtrat ion rate (GFR) non- Americanon 08-30-2023 GFR/1.73 sq M.predicted among non-blacks MDRD (S/P/Bld) [Vol rate/Area] 59 mL/min/{1.73_m2} >=60 [facility] Globulin Calc (S) [Mass/Vol] on 08-30-2023 Globulin (S) [Mass/Vol] 3.4 g/dL [facility] Hematocrit Auto (Bld) [Volum e fraction]on 08-30-2023 Hematocrit (Bld) [Volume fraction] 39.5 % 36.0-48.0 [facility] Hemoglobin [Mass/volume] in Bloodon 08-30-2023 Hemoglobin (Bld) [Mass/Vol] 12.5 g/dL 12.0-16.0 [facility] Laboratory - Chemistry and C hemistry - challengeon 08-30-2023 Albumin [Mass/Vol] 3.7 g/dL 3.4-5.0 [facility] ALP [Catalytic activity/Vol] 45 U/L 46-116 [facility] ALT [Catalytic activity/Vol] 23 U/L 14-59 [facility] AST [Catalytic activity/Vol] 21 U/L 15-37 [facility] Bilirubin [Mass/Vol] 0.4 mg/dL 0.2-1.0 [facility] Calcium [Mass/Vol] 9.0 mg/dL 8.5-10.1 [facility] Chloride [Moles/Vol] 106 mmol/L 98-107 [facility] Cholesterol [Mass/Vol] 246 mg/dL <=200 [facility] Cholesterol in HDL [Mass/Vol] 74 mg/dL 40-60 [facility] Comment on above: > or =60 mg/dl - LOW CARDIOVASCULAR RISK<40 mg/dl - HIGH CARDIOVASCULAR RISK CO2 [Moles/Vol] 25.5 mmol/L 21.0-32.0 [facility] Creatinine [Mass/Vol] 0.96 mg/dL 0.55-1.02 [facility] GFR/1.73 sq M.predicted MDRD (S/P/Bld) [Vol rate/Area] mL/min/{1.73_m2} >=60 [facility] Glucose [Mass/Vol] 86 mg/dL 74-106 [facility] Potassium [Moles/Vol] 3.8 mmol/L 3.5-5.1 [facility] Protein [Mass/Vol] 7.1 g/dL 6.4-8.2 [facility] Sodium [Moles/Vol] 142 mmol/L 136-145 [facility] Triglyceride [Mass/Vol] 101 mg/dL <=150 [facility] TSH Qn 1.531 m[IU]/L 0.358-3.740 [facility] Urea nitrogen [Mass/Vol] 20.0 mg/dL 7.0-18.0 [facility] Urea nitrogen/Creatinine [Mass ratio] 20.8 mg/mg [facility] Laboratory - Hematology and Cell countson 08-30-2023 ESR (Bld) [Velocity] 16 mm/h <=30 [facility] Immature granulocytes/100 WBC (Bld) 0.3 % 0.0-0.5 [facility] Leukocytes [#/volume] correc fito for nucleated erythrocytes in Blood by Automated counon 08-30-2023 WBC corrected for nucl RBC Auto (Bld) [#/Vol] 3.8 10 3/uL 4.0-11.0 [facility] Lymphocytes Auto (Bld) [#/Vo l]on 08-30-2023 Lymphocytes (Bld) [#/Vol] 1.7 10 3/uL 1.2-3.8 [facility] Lymphocytes/100 WBC Auto (Bl d)on 08-30-2023 Lymphocytes/100 WBC (Bld) 44.8 % 20.5-60.0 [facility] MCH Auto (RBC) [Entitic mass ]on 08-30-2023 MCH (RBC) [Entitic mass] 31.1 pg 26.7-34.0 [facility] MCHC Auto (RBC) [Mass/Vol]on 08-30-2023 MCHC (RBC) [Mass/Vol] 31.6 g/dL 29.9-35.2 [facility] MCV Auto (RBC) [Entitic vol] on 08-30-2023 MCV (RBC) [Entitic vol] 98.3 fL 81.0-99.0 [facility] Monocytes Auto (Bld) [#/Vol] on 08-30-2023 Monocytes (Bld) [#/Vol] 0.5 10 3/uL 0.3-0.8 [facility] Monocytes/100 WBC Auto (Bld) on 08-30-2023 Monocytes/100 WBC (Bld) 14.1 % 1.7-12.0 [facility] Neutrophils Auto (Bld) [#/Vo l]on 08-30-2023 Neutrophils (Bld) [#/Vol] 1.4 10 3/uL 1.4-6.5 [facility] Neutrophils/100 WBC Auto (Bl d)on 08-30-2023 Neutrophils/100 WBC (Bld) 35.8 % 43.0-75.0 [facility] No Panel Informationon 08-30 Eosinophils # (Auto) 0.2 10 3/uL 0.0-0.7 [facility] Immature Granulocyte # (Auto) 0.01 10 3/uL 0.00-0.03 [facility] Platelet mean volume Auto (B ld) [Entitic vol]on 08-30-2023 Platelet mean volume (Bld) [Entitic vol] 9.1 fL 9.5-13.5 [facility] Platelets Auto (Bld) [#/Vol] on 08-30-2023 Platelets (Bld) [#/Vol] 181 10 3/uL 150-450 [facility] RBC Auto (Bld) [#/Vol]on RBC (Bld) [#/Vol] 4.02 10 6/uL 4.20-5.[address] [facility] Serum or plasma albumin/glob ulin mass ratioon 08-30-2023 Albumin/Globulin [Mass ratio] 1.1 {ratio} [facility] Serum or plasma anion gap de terminationon 08-30-2023 Anion gap [Moles/Vol] 14.3 mmol[facility]L [facility] Serum or plasma total choles terol/high density lipoprotein (HDL) cholesterol mass albina 08-30-2023 Cholesterol.total/Cho lesterol in HDL [Mass ratio] 3.3 {ratio} [facility] Comment on above: 3.3 - 4.4 [...] No obvious fractures at the coracoid process. [facility] XR Shoulder - right 2 Viewso n 08-18-2023 Radiology Study observation (narrative) [facility] IntraOperative Documentson 1 IntraOperative Documents [id number]# 1.00CD:127 Normal [facility] Auto Diffon 04-07-2023 Basophils/100 WBC (Bld) 0.2 % Normal 0.0-2.0 [facility] Comment on above: Order Comment: Order Added by Discern Expert. Performed By: #### 2 327778, 3607330, 4592422, 0232247, 18048305, 3455966 #### [facility] [address] [place] [address] Basophils/Leukocytes Auto (Bld) [Pure # fraction] 0.0 E9/L Normal 0.0-0.2 [facility] Comment on above: Order Comment: Order Added by Discern Expert. Performed By: #### 2 638418, 0470014, 3148014, 6546044, 05616953, 3070606 #### [facility] [address] [place] [address] Eosinophils/100 WBC (Bld) 0.0 % Normal 0.0-8.0 [facility] Comment on above: Order Comment: Order Added by Kannan Expert. Performed By: #### 2 032671, 4529329, 3181399, 9619255, 78721709, 9575594 #### [facility] [address] [place] [address] Eosinophils/Leukocyte s Auto (Bld) [Pure # fraction] 0.0 E9/L Normal 0.0-0.5 [facility] Comment on above: Order Comment: Order Added by Kannan Expert. Performed By: #### 2 174588, 0584322, 2244370, 3725105, 06769076, 4761088 #### [facility] [address] [place] [address] Lymphocytes/100 WBC (Bld) 7.9 % Low 14.0-50.0 [facility] Comment on above: Order Comment: Order Added by Kannan Expert. Performed By: #### 2 424841, 1297921, 2431792, 2703976, 66213225, 6307357 #### [facility] [address] [place] [address] Lymphocytes/Leukocyte s Auto (Bld) [Pure # fraction] 0.8 E9/L Low 1.0-4.0 [facility] Comment on above: Order Comment: Order Added by Discern Expert. Performed By: #### 2 551186, 8190832, 8362388, 8409110, 26283118, 1792831 #### [facility] [address] [place] [address] Monocytes/100 WBC (Bld) 14.0 % Normal 4.0-14.0 [facility] Comment on above: Order Comment: Order Added by Discern Expert. Performed By: #### 2 421594, 8588317, 2082907, 3776140, 09817547, 8042420 #### [facility] [address] [place] [address] Monocytes/Leukocytes Auto (Bld) [Pure # fraction] 1.3 E9/L High 0.2-1.0 [facility] Comment on above: Order Comment: Order Added by Discern Expert. Performed By: #### 2 168666, 4959290, 8837209, 7370304, 11442928, 2961868 #### [facility] [address] [place] [address] Neutrophils/100 WBC (Bld) 77.9 % High 36.0-75.0 [facility] Comment on above: Order Comment: Order Added by Discern Expert. Performed By: #### 2 826568, 2267086, 3692546, 1370236, 33388025, 1087067 #### [facility] [address] [place] [address] Neutrophils/Leukocyte s Auto (Bld) [Pure # fraction] 7.5 E9/L Normal 2.0-7.5 [facility] Comment on above: Order Comment: Order Added by Discern Expert. Performed By: #### 2 532875, 0356844, 7251780, 8033982, 87517245, 4328806 #### [facility] [address] [place] [address] BUNon 04-07-2023 Urea nitrogen [Mass/Vol] 20 mg/dL Normal 5-21 [facility] Comment on above: Performed By: #### 2 079375, 6827810, 1044310, 2990485, 71360873, 1381634 #### [facility] [address] [place] [address] CBC w/ Auto Diffon 3 Erythrocyte distribution width (RBC) [Ratio] 14.6 % High 10.9-14.2 [facility] Comment on above: Performed By: #### 2 033522, 0965130, 1676880, 7264603, 33752241, 8923128 #### [facility] [address] [place] [address] Hematocrit (Bld) [Volume fraction] 29.7 % Low 34.0-46.0 [facility] Comment on above: Performed By: #### 2 249643, 0603563, 3660938, 4740356, 07075447, 0762757 #### [facility] [address] [place] [address] Hemoglobin (Bld) [Mass/Vol] 10.0 g/dL Low 12.0-16.0 [facility] Comment on above: Performed By: #### 2 478293, 7485746, 5886822, 7912786, 78031595, 2933658 #### [facility] [address] [place] [address] MCH (RBC) [Entitic mass] 32.5 pg Normal 27.0-34.0 [facility] Comment on above: Performed By: #### 2 252833, 6536145, 4139959, 4016454, 67394878, 4171117 #### [facility] [address] [place] [address] MCHC (RBC) [Mass/Vol] 33.6 g/dL Normal 31.4-36.0 [facility] Comment on above: Performed By: #### 2 069700, 4114272, 0202426, 3457932, 33095086, 3412919 #### [facility] [address] [place] [address] MCV (RBC) [Entitic vol] 96.7 fL Normal 80.0-100.0 [facility] Comment on above: Performed By: #### 2 025878, 8359574, 9085928, 7826391, 49372528, 1254176 #### [facility] [address] Platelet mean volume (Bld) [Entitic vol] 7.1 fL Normal 6.4-10.8 [facility] Comment on above: Performed By: #### 2 779542, 8647727, 5861145, 4616095, 39899088, 4730979 #### [facility] [address] [place] [address] Platelets (Bld) [#/Vol] 215.0 E9/L Normal 150.0-500.0 [facility] Comment on above: Performed By: #### 2 843787, 9307160, 5234698, 4010875, 63695553, 4514332 #### [facility] [address] [place] [address] RBC (Bld) [#/Vol] 3.1 E12/L Low 4.3-5.9 [facility] Comment on above: Performed By: #### 2 356172, 3396488, 5480205, 7482973, 40269324, 1460796 #### [facility] [address] [place] [address] WBC corrected for nucl RBC Auto (Bld) [#/Vol] 9.6 E9/L Normal 4.0-11.0 [facility] Comment on above: Performed By: #### 2 681639, 1548869, 9503152, 5090494, 09913475, 7882451 #### [facility] [address] [place] [address] CHEMISTRYOrdered By: SYSTEM SYSTEM on 04-07-2023 Anion gap [Moles/Vol] 6 mmol/L Normal 6 - 16 mEq/L [facility] Remisol Chloride [Moles/Vol] 118 mmol/L High 101 - 1 11 mmol/L [facility] Remisol CO2 [Moles/Vol] 23 mmol/L Normal 21 - 31 mmol/L [facility] Remisol Creatinine [Mass/Vol] 0.9 mg/dL Normal 0.5 - 1.3 mg/dL [facility] Remisol GFR/1.73 sq M.predicted among non-blacks MDRD (S/P/Bld) [Vol rate/Area] 72 mL/min/1.73 m2 Normal >=59mL/min/1 .73 m2 [facility] Chem S Comment on above: Interpretive Data: C hronic kidney disease could be indicated at eGFR's of less than 60 mL/min/1.73m2. Kidney failure is indicated at less than 15 mL/min/1.73m2. Potassium [Moles/Vol] 4.0 mmol/L Normal 3.5 - 5.3 mmol/L [facility] Remisol Sodium [Moles/Vol] 143 mmol/L Normal 135 - 145 mmol/L [facility] Remisol Urea nitrogen [Mass/Vol] 20 mg/dL Normal 5 - 21 mg/dL [facility] Remisol Consent for Anesthesiaon Consent for Anesthesia [id number]#1 .00CD:127 Normal [facility] Creatinineon 04-07-2023 Creatinine [Mass/Vol] 0.9 mg/dL Normal 0.5-1.3 [facility] Comment on above: Performed By: #### 2 029845, 5233874, 4597356, 2415832, 16488099, 7996707 ####[facility] [address] [place] [address] Discharge Instructionson Discharge Instructions [id number]# 1.00CD:127 Normal [facility] Discharge Note-Nursingon Discharge Note-Nursing RADHA ZAIDI [...] Pending Diagnostic Test Results None Pharmacy Information [facility] New Follow Up Appointments after Discharge Follow Up with Jordan Yuan When: Where: [address] [place] [address]- Business (1) Follow Up with JOHN ASHBY When: In 0 days Where: [address] [place] [address]- Business (1) Medications What How Much When Instructions Next Dose Changed acetaminophen-oxycodo ne (Percocet 5 mg-325 mg oral tablet) See instructions 1-2 tab(s) Oral q4hr Pickup at [facility]/pharmacy #[id number] Next dose due after 10am Unchanged buPROPion (Wellbutrin XL 300 mg/ 24 hours Tab-ER) 1 Tablets By Mouth 2 times a day 04/07/23 @ 9pm Unchanged celecoxib (CeleBREX 100 mg Cap) 1 Capsules By Mouth 2 times a day as needed for for pain Pickup at [facility]/pharmacy #6177 04/07/23 @ 9pm Unchanged cephalexin (Keflex 500 mg Cap) 1 Capsules By Mouth Every 8 hours Duration: 7 Days Pickup at [facility]/pharmacy #6177 04/07/23 @ 2pm and bedtime Unchanged docusate (Colace 100 mg Cap) 1 Capsules By Mouth 2 times a day as needed for for constipation Pickup at [facility]/pharmacy #6177 04/07/23 @ 9pm Unchanged leflunomide [...] Every day 04/08/23 @ 9am [id number] [address], [place] [id number] [phone] Test Results CBC BMP WBC: 9.6 E9/L [...] Lateralized/ 24, Shoulder Implant 04/06/2023 [employer] revers Breaks humeral Stem Size 9, Shoulder Implant 04/06/2023 [employer]vers SutureCap, 36 neutral, shoulder Implant 04/06/2023 [employer] Humeral Insert, small, 36, +6, Shoulder (more content not included)... Normal [facility] HEMATOLOGYOrdered By: SYSTEM SYSTEM on 04-07-2023 [...] 9.6 E9/L Normal 4.0 - 11.0 E9/L FT HemeAutoSS Inpatient Clinical Summaryon 04-07-2023 Inpatient Clinical Summary [address] [address] Clinical Summary Person Information: Name: RADHA ZAIDI Age: 62 Years : 1960 Sex: Female PCP: JOHN ASHBY DO Marital Status: Phone: [phone] Race: White Ethnicity: Non- or Language: Malay Visit Id: Visit Reason: OA RIGHT SHOULDER Speciality: Acuity: Enc Type: Observation Med Service: Medical Arrival: 04/06/2023 06:09:55 Discharge: Dispo Type: Address: [address] [place] [address] [address] [place] [phone] Provider Notes: Patient: ARDHA ZAIDI Age: 62 years Sex: Female : [...] up: With: Address: When: Jordan Yuan [address] [place] [address] Business (1) 04/19/2023 2:15 PM With: Address: When: JOHN ASHBY [address] [place] [address] [phone] Business (1) Patient Education Information: Levy Yuan. - Shoulder Replacement (Custom) [facility] Inpatient Patient Summaryon 04-07-2023 Inpatient Patient Summary [address] [address] Patient Discharge Instructions PERSON INFORMATION Name: SHIRA ZAIDIYLL Levy Date of : 1960 Current Date: 04/07/2023 [...] Follow up: With: Address: When: [place] [address] Business (1) 04/19/2023 2:15 PM With: Address: When: JOHN ASHBY [address] [place] [address] Business (1) In the event that this [...] That Have Changed [id number], [address], [place] [id number], [phone] START: acetaminophen-oxycodo ne (Percocet 5 mg-325 mg oral tablet) 1-2 tab(s) Oral q4hr. Refills: 0. Last Dose: ____Next Dose: ____ STOP: acetaminophen-oxycodo ne (Percocet 5 mg-325 mg oral tablet) 1 Tablets By Mouth 3 times a day. Medications to Continue with No Changes [facility], [address], [place] [id number], [phone] celecoxib (CeleBREX 100 mg Cap) 1 Capsules [...] By Mouth every day. Pharmacy Information: [facility] (419) (more content not included)... [facility] IntraOperative Documentson 0 04-07-2023 IntraOperative Documents [id number]#1 .00CD:127 [facility] IntraOperative Documents [id number]#1 .00CD:127 [facility] Lyteson 04-07-2023 Anion gap [Moles/Vol] 6 mmol/L Normal 6-16 [facility] Comment on above: Performed By: #### 2 690794, 9895712, 3027866, 3871620, 50674011, 9117971 ####[facility] [address] [place] [address] Chloride [Moles/Vol] 118 mmol/L High 101-111 Fish [facility] Comment on above: Performed By: #### 2 265116, 0757926, 5435726, 4527032, 50288835, 1745602 ####[facility] [address] [place] [address] CO2 [Moles/Vol] 23 mmol/L Normal 21-31 [facility] Comment on above: Performed By: #### 2 330079, 0326703, 6404022, 7329791, 13627122, 4244388 ####[facility] [address] [place] [address] Potassium [Moles/Vol] 4.0 mmol/L Normal 3.5-5.3 [facility] Comment on above: Performed By: #### 2 249293, 7799990, 9290035, 8121165, 62459671, 8855114 ####[facility] [address] [place] [address] Sodium [Moles/Vol] 143 mmol/L Normal 135-145 [facility] Comment on above: Performed By: #### 2 857746, 4287900, 8231147, 0766459, 44127711, 8493216 ####[facility] [address] [place] [address] Main OR Intraoperative Recor don 04-07-2023 Main OR Intraoperative Record IntraOp Document Type FT Summary Primary Physician: Jordan Yuan DO Finalized Date/Time: 04/07/23 14:30:58 Pt. Name: RADHA ZAIDI/Sex: 1960 Female Med Rec #: [id number] Physician: Jordan Yuan DO Financial #: [id number] Pt. 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 Normal [facility] Main OR PACU I Recordon 03-12 Main OR PACU I Record PACU Phase I Docum ent Type FT Summary Primary Physician: Jordan Yuan DO Finalized Date/Time: 04/07/23 08:05:19 Pt. Name: RADHA ZAIDI/Sex: 1960 Female Med Rec #: [id number] Physician: Jordan Yuan DO Financial #: [id number] Pt. Type: O Room/Bed: N3/01 Admit/Disch: 04/06/23 06:09:55 - Institution: Case Times [...] 08:04 Cate Gonsales RN 04/07/23 08:05 Normal [facility] Patient Education - Texton 0 04-07-2023 Patient Education - Text [place], [place] [facility] DISCHARGE INSTRUCTIONS: SHOULDER REPLACEMENT [...] the development of persistent vomiting. Jordan Yuan, DO [facility] [address] [place] [address] Reviewed: [facility] Preoperative Documentson Preoperative Documents [id number]#1 .00CD:127 [facility] Progress Note-Physicianon Progress [...] Pressure 63 mmHg SpO2 94 % Normal [facility] Comment on above: Result Comment: Elec tronically Signed By: Jordan Yuan DO\.br\Date and Time Signed: 04/07/23 07:40 EDT eGFRon 04-07-2023 GFR/1.73 sq M.predicted among non-blacks MDRD (S/P/Bld) [Vol rate/Area] 72 mL/min/1.73 m2 Normal >=59 [facility] Comment on above: Order Comment: Order added by Discern Expert. Result Comment: Line Manager dina kidney disease could be indicated at eGFR's of less than 60 mL/min/1.73m2. Kidney failure is indicated at less than 15 mL/min/1.73m2. Performed By: #### 2 947018, 1654285, 9755418, 6860041, 76395237, 0838659 ####[facility] [address] [place] [address] ABO/Rhon 04-06-2023 ABO/Rh Positive Invalid Interpretation Code [facility] Comment on above: Performed By: #### 1 0078116, 89922493, 38285288, 4348363 ####[facility] [address] [place] [address] ABO/Rh History Checkon 04-06 ABO/Rh History Check Verified Hx Blood Type Normal [facility] Comment on above: Performed By: #### 1 6667979, 64320498, 62754296, 6045289 ####[facility] [address] [place] [address] ABSCon 04-06-2023 ABSC Gel Interp Negative Normal [facility] Comment on above: Performed By: #### 1 6225285, 66892371, 64227252, 3471570 ####[facility] [address] [place] [address] BLOOD BANKOrdered By: Andra Nunez on 04-06-2023 ABO/Rh Interp Positive Invalid Interpretation Code [facility] BB Subsection ABSC Gel Interp Negative (04/06/23 7:23 AM) Normal [facility] BB Subsection Blood Bank ID#on 04-06-2023 BBID# [id number] Invalid Interpretation Code [facility] Comment on above: Performed By: #### 1 7961338, 98349226, 04537289, 2109990 ####[facility] [address] [place] [address] Consent for Treatmenton 03-12 Consent for Treatment [id number]#1 .00CD:127 Normal [facility] H&P Updateon 04-06-2023 H&P Update [id number]#1 .00CD:127 Normal [facility] Insurance Correspondence Off iceon 04-06-2023 Insurance Correspondence Office [id number]# 1.00CD:127 Normal [facility] Main OR Preoperative Recordo n 04-06-2023 Main OR Preoperative Record PreOp Document Type FT Summary Primary Physician: Jordan Yuan DO Finalized Date/Time: 04/06/23 09:32:24 Pt. Name: RADHA ZAIDI/Sex: 1960 Female Med Rec #: [id number] Physician: Jordan Yuan DO Financial #: [id number] Pt. Type: A Room/Bed: Admit/Disch: 04/06/23 06:09:55 [...] By: Dennis Goldman RN 04/06/23 09:32 Normal [facility] Monitor Recordon 04-06-2023 Monitor Record [id number]# 1.00CD:127 Normal [facility] Monitor Record [id number]# 1.00CD:127 Normal [facility] Monitor Record [id number]# 1.00CD:127 Normal [facility] Operative Reporton 3 Operative Report Patient: RADHA ZAIDI Age: 62 years Sex: Female : 1960 Associated Diagnoses: None Author: Jordan Yuan DO DATE OF SURGERY: 04/06/2023 SURGEON: Jordan Yuan D.O. COMPUTER EDUCATION PROFESSOR: Anival Flores CFA PREOPERATIVE DIAGNOSIS: Massive rotator [...] 3. size +6 humeral insert 4. Revers Breaks size 9 stem with 36 (neutral) Suturecup OPERATIVE INDICATIONS: Radha is a 62-year-old csgkx-jkct-pzlxjnva female who has had persistent right shoulder [...] intraoperative instrumentation were performed with the [employer] software. PROCEDURE: The correct operative site was [...] The depth-stop (more content not included)... Normal [facility] Comment on above: Result Comment: Elec [...] Using maximal sterile barrier technique per current [facility] guidelines including hand hygeine, Guidance (Ultrasound used [...] The patient tolerated the procedure as expected. [facility] Comment on above: Result Comment: Elec tronically Signed By: Yanick Rai DO\.br\Date and Time Signed: 04/06/23 08:44 EDT Progress Note-Physicianon Progress Note-Physician Patient: RADHA ZAIDI Age: 62 years Sex: Female : 1960 Associated Diagnoses: None Author: Yanick Rai DO Postoperative Information Postoperative disposition: Postoperative disposition: To PACU. Optimetrix number: Optimetrix number [id number]. Anesthetic utilized: General. Regional: Interscalene Block. Health [...] pain, # 60 cap(s), Refills(s) 0, Pharmacy: [id number], 160, cm, 03/25/23 6:16:00 EDT, Height/Length Dos (more content not included)... 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 Family History: Primary malignant neoplasm of prostate Father Acute myocardial infarction Mother Procedure history: Cervical laminectomy (6461814232). Amputation of finger (935337040). Removal of lung, Partial (75240). Open reduction and internal fixation of fracture Leg (562361356). Foot surgery (8773261237). Lumbar discectomy (832366074). Social History Social & Psychosocial Habits Alcohol [...] to auscultation. (more content not included)... Normal [facility] Comment on above: Result Comment: Elec tronically Signed By: Yanick Rai DO.br\Date and Time Signed: 04/06/23 08:05 EDT XR [...] DANISHA Technologist: GARRET Technical Comments Radiation Dose: Kar in mGy = na DAP = na Normal [facility] Consent for Procedure/Surger yon 04-05-2023 Consent for Procedure/Surgery [id number]#1 .00CD:127 Normal [facility] CT Upper Extremity w/o Contr [...] DO Transcribed by: DANISHA Technologist: CONSTANTINO Normal [facility] ABO/Rh Retypeon 03-24-2023 ABO/Rh Retype Interp Positive Invalid Interpretation Code [facility] Comment on above: Performed By: #### 1 [id number] ####[facility] [address] [place] [address] BLOOD BANKOrdered By: Andra Longoria on 03-24-2023 ABO/Rh Retype Interp Positive Invalid Interpretation Code [facility] BB Subsection BUNon 03-24-2023 Urea nitrogen [Mass/Vol] 28 mg/dL High 5-21 [facility] Comment on above: Performed By: #### 1 2328904, 9174324, 2874478, 7475086, 9954837, 8141784 ####[facility] [address] [place] [address] CBC w/Indiceson 03-24-2023 Erythrocyte distribution width (RBC) [Ratio] 14.5 % High 10.9-14.2 [facility] Comment on above: Performed By: #### 1 4409409, 4240945, 1565207, 8733393, 3630563, 3080065 ####[facility] [address] [place] [address] Hematocrit (Bld) [Volume fraction] 35.9 % Normal 34.0-46.0 [facility] Comment on above: Performed By: #### 1 0098518, 5773035, 8724559, 1434288, 8826047, 4264137 ####[facility] [address] [place] [address] Hemoglobin (Bld) [Mass/Vol] 11.9 g/dL Low 12.0-16.0 [facility] Comment on above: Performed By: #### 1 8724602, 4553728, 8097820, 2654308, 8357183, 0571203 ####[facility] [address] [place] [address] MCH (RBC) [Entitic mass] 32.3 pg Normal 27.0-34.0 [facility] Comment on above: Performed By: #### 1 6851600, 5623969, 7265231, 6937475, 6022148, 5716050 ####[facility] [address] [place] [address] MCHC (RBC) [Mass/Vol] 33.1 g/dL Normal 31.4-36.0 [facility] Comment on above: Performed By: #### 1 4811632, 2463011, 2868004, 9408322, 6102111, 3330689 ####[facility] [address] [place] [address] MCV (RBC) [Entitic vol] 97.4 fL Normal 80.0-100.0 [facility] Comment on above: Performed By: #### 1 8289101, 4146050, 8681686, 9569490, 8829322, 3468146 ####[facility] [address] [place] [address] Platelet mean volume (Bld) [Entitic vol] 7.4 fL Normal 6.4-10.8 [facility] Comment on above: Performed By: #### 1 2872852, 2057848, 8183238, 0492141, 6270476, 3991681 ####[facility] [address] [place] [address] Platelets (Bld) [#/Vol] 207.0 E9/L Normal 150.0-500.0 [facility] Comment on above: Performed By: #### 1 8428755, 0123601, 5013942, 4733183, 3200306, 9164799 ####[facility] [address] [place] [address] RBC (Bld) [#/Vol] 3.7 E12/L Low 4.3-5.9 [facility] Comment on above: Performed By: #### 1 4054847, 6424365, 3002592, 2726595, 6995798, 7039586 ####[facility] [address] [place] [address] WBC corrected for nucl RBC Auto (Bld) [#/Vol] 3.5 E9/L Low 4.0-11.0 [facility] Comment on above: Performed By: #### 1 3193062, 8965400, 0718341, 1139947, 7629837, 5629407 ####[facility] [address] [place] [address] CHEMISTRYOrdered By: SYSTEM SYSTEM on 03-24-2023 Anion gap [Moles/Vol] 12 mmol/L Normal 6 - 16 mEq/L [facility] Remisol Chloride [Moles/Vol] 111 mmol/L Normal 101 - 1 11 mmol/L [facility] Remisol CO2 [Moles/Vol] 20 mmol/L Low 21 - 31 mmol/L [facility] Remisol Creatinine [Mass/Vol] 1.2 mg/dL Normal 0.5 - 1.3 mg/dL [facility] Remisol GFR/1.73 sq M.predicted among non-blacks MDRD (S/P/Bld) [Vol rate/Area] 51 mL/min/1.73 m2 Low >=59mL/min/1 .73 m2 [facility] Chem S Glucose [Mass/Vol] 84 mg/dL Normal 55 - 199 mg/dL FT Remisol Potassium [Moles/Vol] 4.2 mmol/L Normal 3.5 - 5.3 mmol/L FT [facility]isol Sodium [Moles/Vol] 139 mmol/L Normal 135 - 145 mmol/L [facility] Remisol Urea nitrogen [Mass/Vol] 28 mg/dL High 5 - 21 mg/dL FT Remisol Consent for Treatmenton 03-11 Consent for Treatment [id number]#1 .00CD:127 Normal [facility] Creatinineon 03-24-2023 Creatinine [Mass/Vol] 1.2 mg/dL Normal 0.5-1.3 [facility] Comment on above: Performed By: #### 1 9426810, 0811303, 0503549, 9703488, 5825235, 5015429 ####[facility] [address] [place] [address] Glucoseon 03-24-2023 Glucose [Mass/Vol] 84 mg/dL Normal 55-199 [facility] Comment on above: Performed By: #### 1 9795724, 5767581, 7444586, 0463851, 6171248, 1909760 ####[facility] [address] [place] [address] HEMATOLOGYOrdered By: Andra Longoria on 03-24-2023 Erythrocyte [...] 3.5 E9/L Low 4.0 - 11.0 E9/L [facility] HemeAutoSS Lyteson 03-24-2023 Anion gap [Moles/Vol] 12 mmol/L Normal 6-16 [facility] Comment on above: Performed By: #### 1 3701606, 0525912, 1486173, 3489163, 2055327, 8351228 ####[facility] [address] [place] [address] Chloride [Moles/Vol] 111 mmol/L Normal 101-111 Fish [facility] Comment on above: Performed By: #### 1 8838869, 2626025, 9885842, 8017644, 6131136, 5039079 ####[facility] [address] [place] [address] CO2 [Moles/Vol] 20 mmol/L Low 21-31 [facility] Comment on above: Performed By: #### 1 2791594, 3802868, 2426120, 8994098, 4019388, 7847233 ####[facility] [address] [place] [address] Potassium [Moles/Vol] 4.2 mmol/L Normal 3.5-5.3 [facility] Comment on above: Performed By: #### 1 8058212, 6680131, 1170489, 4100466, 3534888, 3669774 ####[facility] [address] [place] [address] Sodium [Moles/Vol] 139 mmol/L Normal 135-145 [facility] Comment on above: Performed By: #### 1 4140323, 1324746, 4824077, 2739556, 0460185, 9108187 ####[facility] [address] [place] [address] UA With Cult Reflexon 2022 Bilirubin Ql (U) Negative Normal Negative [facility] Comment on above: Performed By: #### 1 6731872 #### [facility] [address] [place] [address] Clarity (U) CLEAR Normal Clear [facility] Comment on above: Performed By: #### 1 0683152 #### [facility] [address] [place] [address] Color (U) YELLOW Normal Yellow [facility] Comment on above: Performed By: #### 1 5785519 #### [facility] [address] [place] [address] Epithelial cells.squamous LM.HPF (Urine sed) [#/Area] 0-2 Normal 0-2 [facility] Comment on above: Performed By: #### 1 1131983 #### [facility] [address] [place] [address] Fine Granular Casts LM Ql (Urine sed) 0-3 Normal [facility] Comment on above: Performed By: #### 1 1573579 #### [facility] [address] [place] [address] Glucose Test strip (U) [Mass/Vol] Negative Normal Negative [facility] Comment on above: Performed By: #### 1 8453597 #### [facility] [address] [place] [address] Hemoglobin Ql (U) Negative Normal Negative [facility] Comment on above: Performed By: #### 1 9412607 #### [facility] [address] [place] [address] Ketones (U) [Mass/Vol] Negative Normal Negative [facility] Comment on above: Performed By: #### 1 1010685 #### [facility] [address] [place] [address] Kress.plasma/Lithiu m.RBC (Bld) [Mass ratio] 0-3 Normal 0-3 [facility] Comment on above: Performed By: #### 1 4053047 #### [facility] [address] [place] [address] Mucus Ql (Urine sed) TRACE Normal Fish [facility] Comment on above: Performed By: #### 1 9077886 #### [facility] [address] [place] [address] Nitrite Ql (U) Negative Normal Negative [facility] Comment on above: Performed By: #### 1 4300197 #### [facility] [address] [place] [address] pH (U) 6.0 [pH] Invalid Interpretation Code 5.0-9.0 [facility] Comment on above: Performed By: #### 1 4734901 #### [facility] [address] [place] [address] Protein (U) [Mass/Vol] Negative Normal Negative [facility] Comment on above: Performed By: #### 1 9413397 #### [facility] [address] [place] [address] Specific gravity (U) [Rel density] >=1.030 Invalid Interpretation Code 1.005-1.030 [facility] Comment on above: Performed By: #### 1 4901860 #### [facility] [address] [place] [address] Type of Urine collection method Clean Catch Normal [facility] Comment on above: Performed By: #### 1 8283909 #### [facility] [address] [place] [address] Urobilinogen Qn (U) 0.2 {Rajwinder'U}/dL Normal 0.0-1.0 [facility] Comment on above: Performed By: #### 1 9176273 #### [facility] [address] [place] [address] WBC Auto Ql (U) Negative Normal Negative [facility] Comment on above: Performed By: #### 1 3840203 #### [facility] [address] [place] [address] WBC LM.HPF (Urine sed) [#/Area] 0-5 Normal 0-5 [facility] Comment on above: Performed By: #### 1 2659729 #### [facility] [address] [place] [address] URINALYSISOrdered By: Indira calix on 03-24-2023 Bilirubin [...] PM) Normal Negative [facility] UA Auto SS Kress.plasma/Lithiu m.RBC (Bld) [Mass ratio] 0-3 /HPF Normal [...] [facility] UA Auto SS Urobilinogen Qn (U) 0.3541472 {Rajwinder'U}/dL Normal 0.0 - 1.0 EU/dL [facility] [...] mGy = na DAP = na Normal [facility] eGFRon 03-24-2023 GFR/1.73 sq M.predicted among non-blacks MDRD (S/P/Bld) [Vol rate/Area] 51 mL/min/1.73 m2 Low >=59 [facility] Comment on above: Order Comment: Order added by Discern Expert. Result Comment: Line Manager dina kidney disease could be indicated at eGFR's of less than 60 mL/min/1.73m2. Kidney failure is indicated at less than 15 mL/min/1.73m2. Performed By: #### 1 0394384, 7150480, 5435994, 7588537, 5619481, 6838961 ####[facility] [address] [place] [address] Physician Orderon 03-23-2023 Physician Order [id number]#1. 00CD:127 Normal [facility] XR SHOULDER RT 2V or >on [...] VANDANA YUAN Date: 2022-10-07 22:08 Normal [facility] CBC AUTO DIFFon 09-16-2022 BASO # 0.0 103/ul Normal 0.0-0.1 [facility] Comment on above: Performed By: #### C BC ####[facility] [address] [place] [address]Dr. Andrade Alvarado Basophils/100 WBC (Bld) 0.5 % Normal 0.2-2.0 [facility] Comment on above: Performed By: #### C BC ####[facility] [address] [place] [address]Dr. Kellengregory Alvarado EO # 0.1 103/ul Normal 0.0-0.7 [facility] Comment on above: Performed By: #### C BC ####[facility] [address] [place] [address]Dr. Andrade Alvarado Eosinophils/100 WBC (Bld) 2.3 % Normal 0.9-7.0 [facility] Comment on above: Performed By: #### C BC ####[facility] [address] [place] [address]Dr. Kellengregory Alvarado Erythrocyte distribution width (RBC) [Ratio] 13.7 % Normal 11.0-15.0 [facility] Comment on above: Performed By: #### C BC ####[facility] [address] [place] [address]Dr. Andrade Alvarado Hematocrit (Bld) [Volume fraction] 32.8 % Critically low 36.0-48.0 [facility] Comment on above: Performed By: #### C BC ####[facility] [address] [place] [address]Dr. Andrade Alvarado Hemoglobin (Bld) [Mass/Vol] 10.9 g/dL Critically low 12.0-16.0 [facility] Comment on above: Performed By: #### C BC ####[facility] [address] [place] [address]Dr. Andrade Alvarado IG # 0.02 10e3/ul Normal 0.00-0.03 [facility] Comment on above: Performed By: #### C BC ####[facility] [address] [place], [place] [address]Dr. Andrade Alvarado IG % 0.5 % Normal 0.0-0.5 [facility] Comment on above: Performed By: #### C BC ####[facility] [address] [place], [place] [address]Dr. Andrade Alvarado LYMPH # 1.6 103/ul Normal 1.2-3.8 [facility] Comment on above: Performed By: #### C BC ####[facility] Geqorvsxml[address] [place], [place] [address]Dr. Andrade Alvarado Lymphocytes/100 WBC (Bld) 41.8 % Normal 20.5-60.0 [facility] Comment on above: Performed By: #### C BC ####[facility] Tcjxtsnord[address] [place], [place] [address]Dr. Andrade Alvarado MANUAL DIFF REQ NO Normal [facility] Comment on above: Performed By: #### C BC ####[facility] [address] [place], [place] [address]Dr. Andrade Alvraado MCH (RBC) [Entitic mass] 31.9 pg Normal 26.7-34.0 [facility] Comment on above: Performed By: #### C BC ####[facility] Aigk[address]lz[address] [place], [place] [address]Dr. Andrade Alvarado MCHC (RBC) [Mass/Vol] 33.2 g/dL Normal 29.9-35.2 [facility] Comment on above: Performed By: #### C BC ####[facility] [address] [place] [id number]. Andrade Alvarado MCV (RBC) [Entitic vol] 95.9 fL Normal 81.0-99.0 [facility] Comment on above: Performed By: #### C BC ####[facility] [address]nefzpim[address] [place] [id number]. Andrade Alvarado MONO # 0.5 103/ul Normal 0.3-0.8 [facility] Comment on above: Performed By: #### C BC ####[facility] Fherokaprk[address] [place] [id number]. Andrade Alvarado Monocytes/100 WBC (Bld) 13.1 % Critically high 1.7-12.0 [facility] Comment on above: Performed By: #### C BC ####[facility] Nkscllrwfh[address] [place] [id number]. Andrade Alvarado NEUT # 1.6 103/ul Normal 1.4-6.5 [facility] Comment on above: Performed By: #### C BC ####[facility] Tefoxhqczu[address] [place] [id number]. Andrade Alvarado Neutrophils/100 WBC (Bld) 41.8 % Critically low 43.0-75.0 [facility] Comment on above: Performed By: #### C BC ####[facility] J[address] [place] [id number]. Andrade Alvarado Platelet mean volume (Bld) [Entitic vol] 8.8 fL Critically low 9.5-13.5 [facility] Comment on above: Performed By: #### C BC ####[facility] [address]ogrkgf[address] [place] [id number]. Andrade Alvarado PLT 219 103/ul Normal 150-450 [facility] Comment on above: Performed By: #### C BC ####[facility] Xfivznvldb5[address] [place] [id number]. Andrade Alvarado RBC 3.42 106/ul Critically low 4.20-5.40 [facility] Comment on above: Performed By: #### C BC ####[facility] Zoqudqsekr[address] [place] [id number]. Andrade Alvarado WBC 3.9 103/ul Critically low 4.0-11.0 [facility] Comment on above: Performed By: #### C BC ####[facility] [address] [address]Dr. Andrade Alvarado FERRITINon 09-16-2022 Ferritin [Mass/Vol] 292.0 ng/mL Critically high 8.0-252.0 [facility] Comment on above: Performed By: #### F ERR, B12FOL, FETIBC #### [facility] [address] [address] [address] Andrade Alvarado IRON AND TIBCon 09-16-2022 % SATURATION 76.2 % Normal [facility] Comment on above: Performed By: #### F ERR, B12FOL, FETIBC #### [facility] [address] [address] [address] Andrade Alvarado Iron [Mass/Vol] 259.0 ug/dL Critically high 50.0-170.0 [facility] Comment on above: Performed By: #### F ERR, B12FOL, FETIBC #### [facility] [address] [address] [address] Andrade Alvarado TIBC DIRECT 340.0 ug/dL Normal 250.0-450.0 [facility] Comment on above: Performed By: #### F ERR, B12FOL, FETIBC #### [facility] [address] [address] [address] Andrade Alvarado PROF 14(COMP METB)on 023 Albumin [Mass/Vol] 4.0 g/dL Normal 3.4-5.0 [facility] Comment on above: Performed By: #### C MP ####[facility] Phbcajhaio[address] [place] [address]Dr. Andrade Alvarado Albumin/Globulin [Mass ratio] 1.3 {ratio} Normal [facility] Comment on above: Performed By: #### C MP ####[facility] Fexsrpsqrt[address] [address]Dr. Foremanlan Alvarado ALP [Catalytic activity/Vol] 47 U/L Normal 46-116 [facility] Comment on above: Performed By: #### C MP ####[facility] Yvabaflvox[address] [place] [address]Dr. Andrade Alvarado ALT [Catalytic activity/Vol] 23 U/L Normal 14-59 [facility] Comment on above: Performed By: #### C MP ####[facility] Siruyaohba[address] [address]Dr. Andrade Christiano Anion gap [Moles/Vol] 12.1 mmol/L Normal Th [facility] Comment on above: Performed By: #### C MP ####[facility] Gnpzvsswmn[address] [place], [place] [address]Dr. Andrade Christiano AST [Catalytic activity/Vol] 23 U/L Normal 15-37 [facility] Comment on above: Performed By: #### C MP ####[facility] Jenrcejdwv9[address] [place], [place] [address]Dr. Andrade Christiano Bilirubin [Mass/Vol] 0.4 mg/dL Normal 0.2-1.0 [facility] Comment on above: Performed By: #### C MP ####[facility] Kyeghsnfsb[address] [place], [place] [address]Dr. Andrade Christiano Calcium [Mass/Vol] 9.3 mg/dL Normal 8.5-10.1 [place] Comment on above: Performed By: #### C MP ####[facility] Xnxztrahpy54[address] [place], [place] [address]Dr. Andrade Christiano Chloride [Moles/Vol] 108 mmol/L Critically high 98-107 [facility] Comment on above: Performed By: #### C MP ####[facility] Basxwvsnbg[address] [place], [place] [address]Dr. Andrade Christiano CO2 [Moles/Vol] 26.9 mmol/L Normal 21.0-32.0 [facility] Comment on above: Performed By: #### C MP ####[facility] Siddvftshi[address] [place], [place] [address]Dr. Andrade Alvarado Creatinine [Mass/Vol] 0.87 mg/dL Normal 0.55-1.02 [facility] Comment on above: Performed By: #### C MP ####[facility] Flrtcmeitq[address] [place] [address]Dr. Andrade Alvarado EGFR-AF SAO TOMEAN >60 Normal >=60 [facility] Comment on above: Performed By: #### C MP ####[facility] Jhuaxacusv[address] [place] [address]Dr. Andrade Christiano EGFR-NON AF SAO TOMEAN >60 Normal >=60 [facility] Comment on above: Performed By: #### C MP ####[facility] Czzkxltbsu60[address] [place] [address]Dr. Andrade Christiano Globulin (S) [Mass/Vol] 3.0 g/dL Normal [facility] Comment on above: Performed By: #### C MP ####[facility] Wxhnpelchb4[address] [place], [place] [address]Dr. Andrade Christiano Glucose [Mass/Vol] 102 mg/dL Normal 74-106 [facility] Comment on above: Performed By: #### C MP ####[facility] Ozjzxttrna7[address] [place], [place] [address]Dr. Andrade Christiano Potassium [Moles/Vol] 4.0 mmol/L Normal 3.5-5.1 [facility] Comment on above: Performed By: #### C MP ####[facility] Qxdyoiibgk59[address] [place] [address]Dr. Andrade Christiano Protein [Mass/Vol] 7.0 g/dL Normal 6.4-8.2 [facility] Comment on above: Performed By: #### C MP ####[facility] Rcvvnhavjg8[address] [place], [place] [address]Dr. Andrade Alvarado Sodium [Moles/Vol] 143 mmol/L Normal 136-145 [facility] Comment on above: Performed By: #### C MP ####[facility] Okpjpnileu[address] [address]Dr. Kellengregory Christiano Urea nitrogen [Mass/Vol] 25.0 mg/dL Critically high 7.0-18.0 The [facility] Comment on above: Performed By: #### C MP ####[facility] Nzjqhwestx4[address] [place] [address]Dr. Andrade Alvarado Urea nitrogen/Creatinine [Mass ratio] 28.7 mg/mg Normal [facility] Comment on above: Performed By: #### C MP ####[facility] Iyrkjpyqtr14[address] [place] [address]Dr. Andrade Alvarado SED RATE WESTERGRENon 2022 SED RATE 11 mm/hr Normal <=30 [facility] Comment on above: Performed By: #### S EDR ####[facility] Vftoqowgxs54[address] [place] [address]Dr. Andrade Alvarado VIT B12 AND FOLATEon 023 Cobalamin (Vitamin B12) [Mass/Vol] 249.0 pg/mL Normal 193.0-986.0 [facility] Comment on above: Performed By: #### F ERR, B12FOL, FETIBC #### [facility] [address] [address] [address] Andrade Alvarado FOLATE 14.00 ng/mL Normal 8.60-58.90 [facility] Comment on above: Performed By: #### F ERR, B12FOL, FETIBC #### [facility] [address] [address] [address] Andrade Alvarado MG MAMM SCREEN 3D BRENNA CADon 2022 MG MAMM SCREEN 3D BRENNA CAD Patient: RADHA ZAIDI Exam Date: 2022 : 1960 Gender:F Ordering : DR JOHN ASHBY D.O. Admission #: [id number] Family : Order #: [id number] CLICK HERE TO VIEW EXAM RADIOLOGY REPORT [...] prostate cancer at age 72. LOCATION: [facility] BREAST COMPOSITION: Scattered areas fibroglandular density. [...] M.D. on 06/09/2022 at 15:30 Normal [facility] CBC AUTO DIFFon 05-20-2022 BASO # 0.0 103/ul Normal 0.0-0.1 [facility] Comment on above: Performed By: #### C BC ####[facility] Rlgfsvyomg[address] [place], [place] [address]DrMehreen Alvarado Basophils/100 WBC (Bld) 1.0 % Normal 0.2-2.0 [facility] Comment on above: Performed By: #### C BC ####[facility] [address]scflwp[address] [place] [address]DrMehreen Alvarado EO # 0.1 103/ul Normal 0.0-0.7 [facility] Comment on above: Performed By: #### C BC ####[facility] Fglncongdq[address] [place] [id number] Alvarado Eosinophils/100 WBC (Bld) 2.5 % Normal 0.9-7.0 [facility] Comment on above: Performed By: #### C BC ####[facility] Uxtbkuqnls7194 [place] [address]DrMehreen Alvarado Erythrocyte distribution width (RBC) [Ratio] 13.0 % Normal 11.0-15.0 [facility] Comment on above: Performed By: #### C BC ####[facility] Ttwojzifot64[address] [place], [place] [address]DrMehreen Alvarado Hematocrit (Bld) [Volume fraction] 34.9 % Critically low 36.0-48.0 [facility] Comment on above: Performed By: #### C BC ####[facility] Dqvtzehzkt[address] [place] [address]Dr. Andrade Alvarado Hemoglobin (Bld) [Mass/Vol] 11.6 g/dL Critically low 12.0-16.0 [facility] Comment on above: Performed By: #### C BC ####[facility] Cvcjcmiypa[address] [place] [address]Dr. Andrade Alvarado IG # 0.02 10e3/ul Normal 0.00-0.03 [facility] Comment on above: Performed By: #### C BC ####[facility] Ebpkeruxhc2[address] [place], [place] [address]Dr. Andrade Alvarado IG % 0.5 % Normal 0.0-0.5 [facility] Comment on above: Performed By: #### C BC ####[facility] Ditvzhckwb[address] [place], [place] [address]Dr. Andrade Alvarado LYMPH # 1.9 103/ul Normal 1.2-3.8 [facility] Comment on above: Performed By: #### C BC ####[facility] Sxpovoipvs[address] [place], [place] [address]Dr. Andrade Alvarado Lymphocytes/100 WBC (Bld) 46.1 % Normal 20.5-60.0 [facility] Comment on above: Performed By: #### C BC ####[facility] Bbdqlqiwxs[address] [place], [place] [address]Dr. Andrade Alvarado MANUAL DIFF REQ NO Normal [facility] Comment on above: Performed By: #### C BC ####[facility] Vwhbfdbyzt[address] [place], [place] [address]Dr. Andrade Alvarado MCH (RBC) [Entitic mass] 32.3 pg Normal 26.7-34.0 [facility] Comment on above: Performed By: #### C BC ####[facility] X[address]pxqazdqi[address] [place], [place] [address]Dr. Andrade Alvarado MCHC (RBC) [Mass/Vol] 33.2 g/dL Normal 29.9-35.2 [facility] Comment on above: Performed By: #### C BC ####[facility] Tuoqnegzgo[address] [place] [id number]. Andrade Alvarado MCV (RBC) [Entitic vol] 97.2 fL Normal 81.0-99.0 [facility] Comment on above: Performed By: #### C BC ####[facility] Bagklmdwwb[address] [place] [id number]. Andrade Alvarado MONO # 0.5 103/ul Normal 0.3-0.8 [facility] Comment on above: Performed By: #### C BC ####[facility] Rcamcxuzvt8423 [place] [id number]. Andrade Christiano Monocytes/100 WBC (Bld) 13.5 % Critically high 1.7-12.0 [facility] Comment on above: Performed By: #### C BC ####[facility] [address] [place], [place] [address]Dr. Andrade Alvarado NEUT # 1.5 103/ul Normal 1.4-6.5 [facility] Comment on above: Performed By: #### C BC ####[facility] Wahxlqaptg[address] [place] [id number]. Andrade Christiano Neutrophils/100 WBC (Bld) 36.4 % Critically low 43.0-75.0 [facility] Comment on above: Performed By: #### C BC ####[facility] Qnnzehqonq9154 [place] [phone]. Andrade Christiano Platelet mean volume (Bld) [Entitic vol] 8.9 fL Critically low 9.5-13.5 [facility] Comment on above: Performed By: #### C BC ####[facility] G[address] [place] [id number]. Andrade Christiano PLT 237 103/ul Normal 150-450 [facility] Comment on above: Performed By: #### C BC ####[facility] Xvwytnexdj8[address] [place] [id number]. Andrade Alvarado RBC 3.59 106/ul Critically low 4.20-5.40 [facility] Comment on above: Performed By: #### C BC ####[facility] K[address]zrnrbs95[address] [place], [place] [address]Dr. Andrade Alvarado WBC 4.0 103/ul Normal 4.0-11.0 [facility] Comment on above: Performed By: #### C BC ####[facility] Lfkxsliffx0423 [place], [place] [address]Dr. Andrade Alvarado CRPon 05-20-2022 CRP [Mass/Vol] mg/L Normal <=1.0 [facility] Comment on above: Performed By: #### C MP, CRP, TSH ####[facility] [address]bsoijmjx[address] [place] [phone]. Andrade Alvarado PROF 14(COMP METB)on 022 Albumin [Mass/Vol] 4.2 g/dL Normal 3.4-5.0 [place] Comment on above: Performed By: #### C MP, CRP, TSH #### [facility] [address] [address] [address] Andrade Alvarado Albumin/Globulin [Mass ratio] 1.3 {ratio} Normal [facility] Comment on above: Performed By: #### C MP, CRP, TSH #### [facility] [address] [address] [address] Andrade Alvarado ALP [Catalytic activity/Vol] 50 U/L Normal 46-116 [facility] Comment on above: Performed By: #### C MP, CRP, TSH #### [facility] [address] [address] [address] Andrade Alvarado ALT [Catalytic activity/Vol] 23 U/L Normal 14-59 [facility] Comment on above: Performed By: #### C MP, CRP, TSH #### [facility] [address] [address] [address] Andrade Alvarado Anion gap [Moles/Vol] 11.3 mmol/L Normal [facility] Comment on above: Performed By: #### C MP, CRP, TSH #### [facility] [address] [address] [address] Andrade Alvarado AST [Catalytic activity/Vol] 23 U/L Normal 15-37 [facility] Comment on above: Performed By: #### C MP, CRP, TSH #### [facility] [address] [address] [address] Andrade Alvarado Bilirubin [Mass/Vol] 0.5 mg/dL Normal 0.2-1.0 [facility] Comment on above: Performed By: #### C MP, CRP, TSH #### [facility] [address] [address] [address] Andrade Alvarado Calcium [Mass/Vol] 9.3 mg/dL Normal 8.5-10.1 [place] Comment on above: Performed By: #### C MP, CRP, TSH #### [facility] [address] [place] [address] Dr. Andrade Alvarado Chloride [Moles/Vol] 104 mmol/L Normal 98-107 [facility] Comment on above: Performed By: #### C MP, CRP, TSH #### [facility] [address] [place] [address] Dr. Andrade Alvarado CO2 [Moles/Vol] 27.2 mmol/L Normal 21.0-32.0 [facility] Comment on above: Performed By: #### C MP, CRP, TSH #### [facility] [address] [place] [address] Dr. Andrade Alvarado Creatinine [Mass/Vol] 0.99 mg/dL Normal 0.55-1.02 [facility] Comment on above: Performed By: #### C MP, CRP, TSH #### [facility] [address] [place] [address] Dr. Andrade Alvarado EGFR-AF SAO TOMEAN >60 Normal >=60 [facility] Comment on above: Performed By: #### C MP, CRP, TSH #### [facility] [address] [place] [address] Dr. Andrade Alvarado EGFR-NON AF SAO TOMEAN 57 mL/min/1.73m2 Critically low >=60 [facility] Comment on above: Performed By: #### C MP, CRP, TSH #### [facility] [address] [address] [address] Andrade Alvarado Globulin (S) [Mass/Vol] 3.3 g/dL Normal [facility] Comment on above: Performed By: #### C MP, CRP, TSH #### [facility] [address] [address] [address] Andrade Alvarado Glucose [Mass/Vol] 97 mg/dL Normal 74-106 [facility] Comment on above: Performed By: #### C MP, CRP, TSH #### [facility] [address] [place] [address] Dr. Andrade Alvarado Potassium [Moles/Vol] 3.5 mmol/L Normal 3.5-5.1 [facility] Comment on above: Performed By: #### C MP, CRP, TSH #### [facility] [address] [place] [address] Dr. Andrade Alvarado Protein [Mass/Vol] 7.5 g/dL Normal 6.4-8.2 [facility] Comment on above: Performed By: #### C MP, CRP, TSH #### [facility] [address] [address] [address] Andrade Alvarado Sodium [Moles/Vol] 139 mmol/L Normal 136-145 [facility] Comment on above: Performed By: #### C MP, CRP, TSH #### [facility] [address] [place] [address] Dr. Andrade Alvarado Urea nitrogen [Mass/Vol] 22.0 mg/dL Critically high 7.0-18.0 [facility] Comment on above: Performed By: #### C MP, CRP, TSH #### [facility] [address] [place] [address] Dr. Andrade Alvarado Urea nitrogen/Creatinine [Mass ratio] 22.2 mg/mg Normal [facility] Comment on above: Performed By: #### C MP, CRP, TSH #### [facility] [address] [place] [address] Dr. Andrade Alvarado SED RATE [facility] 2021 SED RATE 22 mm/hr Normal <=30 [facility] Comment on above: Performed By: #### S EDR ####[facility] F[address]asthd[address] [place] [id number]. Andrade Alvarado TSHon 05-20-2022 TSH 1.373 uIU/mL Normal 0.358-3.740 [facility] Comment on above: Performed By: #### C MP, CRP, TSH #### [facility] [address] [place], [place] [address] Dr. Andrade Alvarado CBC AUTO DIFFon 02-16-2022 BASO # 0.0 103/ul Normal 0.0-0.1 [facility] Comment on above: Performed By: #### C BC ####[facility] [address]zscggk[address] [place] [address]Dr. Andrade Alvarado Basophils/100 WBC (Bld) 0.9 % Normal 0.2-2.0 [facility] Comment on above: Performed By: #### C BC ####[facility] Q[address]seiwpys[address] [place], [place] [address]Dr. Andrade Alvarado EO # 0.1 103/ul Normal 0.0-0.7 [facility] Comment on above: Performed By: #### C BC ####[facility] [address]whzgtjfsc[address] [place], [place] [address]Dr. Andrade Alvarado Eosinophils/100 WBC (Bld) 2.3 % Normal 0.9-7.0 [facility] Comment on above: Performed By: #### C BC ####[facility] N[address]blgsmis[address] [place], [place] [address]DrMehreen Alvarado Erythrocyte distribution width (RBC) [Ratio] 12.6 % Normal 11.0-15.0 [facility] Comment on above: Performed By: #### C BC ####[facility] G[address]qjtkwjtq[address] [place], [place] [address]Dr. Andrade Alvarado Hematocrit (Bld) [Volume fraction] 37.8 % Normal 36.0-48.0 [facility] Comment on above: Performed By: #### C BC ####[facility] Mpsstwplyn[address] [place], [place] [address]Dr. Andrade Alvarado Hemoglobin (Bld) [Mass/Vol] 12.3 g/dL Normal 12.0-16.0 [facility] Comment on above: Performed By: #### C BC ####[facility] R[address]cfvz[address] [place] [address]DrMehreen Foremangregory Alvarado IG # 0.02 10e3/ul Normal 0.00-0.03 [facility] Comment on above: Performed By: #### C BC ####[facility] Tuwvquvfmm[address] [place] [address]DrMehreen Alvarado IG % 0.5 % Normal 0.0-0.5 [facility] Comment on above: Performed By: #### C BC ####[facility] Txsjlwierc[address] [place], [place] [address]DrMehreen Alvarado LYMPH # 2.1 103/ul Normal 1.2-3.8 [facility] Comment on above: Performed By: #### C BC ####[facility] Msowwpmkxr[address] [place], [place] [address]DrMehreen Alvarado Lymphocytes/100 WBC (Bld) 48.3 % Normal 20.5-60.0 [facility] Comment on above: Performed By: #### C BC ####[facility] Cmigslwfac[address] [place], [place] [address]DrMehreen Alvarado MANUAL DIFF REQ NO Normal [facility] Comment on above: Performed By: #### C BC ####[facility] Zqdncjpmui[address] [place], [place] [address]DrMehreen Alvarado MCH (RBC) [Entitic mass] 31.9 pg Normal 26.7-34.0 [facility] Comment on above: Performed By: #### C BC ####[facility] [address] [place], [place] [id number] Alvarado MCHC (RBC) [Mass/Vol] 32.5 g/dL Normal 29.9-35.2 [facility] Comment on above: Performed By: #### C BC ####[facility] X[address] [place], [place] [id number] Alvarado MCV (RBC) [Entitic vol] 97.9 fL Normal 81.0-99.0 [facility] Comment on above: Performed By: #### C BC ####[facility] [address] [address]DrMehreen Andrade Alvarado MONO # 0.5 103/ul Normal 0.3-0.8 [facility] Comment on above: Performed By: #### C BC ####[facility] [address] [address]DrMehreen Andrade Christiano Monocytes/100 WBC (Bld) 11.2 % Normal 1.7-12.0 [facility] Comment on above: Performed By: #### C BC ####[facility] [address] [place], [place] [address]DrMehreen Andrade Alvarado NEUT # 1.6 103/ul Normal 1.4-6.5 [facility] Comment on above: Performed By: #### C BC ####[facility] [address] [place], [place] [address]DrMehreen Alvarado Neutrophils/100 WBC (Bld) 36.8 % Critically low 43.0-75.0 [facility] Comment on above: Performed By: #### C BC ####[facility] On[address] [place], [place] [address]DrMehreen Andrade Christiano Platelet mean volume (Bld) [Entitic vol] 9.9 fL Normal 9.5-13.5 [facility] Comment on above: Performed By: #### C BC ####[facility] W[address] [place], [place] [address]Dr. Kellengregory Christiano PLT 213 103/ul Normal 150-450 [facility] Comment on above: Performed By: #### C BC ####[facility] [address] [place], [place] [address]DrMehreen Alvarado RBC 3.86 106/ul Critically low 4.20-5.40 [facility] Comment on above: Performed By: #### C BC ####[facility] [address] [place], [place] [address]DrMehreen Alvarado WBC 4.4 103/ul Normal 4.0-11.0 [facility] Comment on above: Performed By: #### C BC ####[facility] [address] [address]Dr. Andrade Alvarado PROF 14(COMP METB)on 022 Albumin [Mass/Vol] 4.2 g/dL Normal 3.4-5.0 [place] Comment on above: Performed By: #### C MP #### [facility] [address] [address] [address] Andrade Alvarado Albumin/Globulin [Mass ratio] 1.3 {ratio} Normal [facility] Comment on above: Performed By: #### C MP #### [facility] [address] [place] [address] Dr. Andrade Alvarado ALP [Catalytic activity/Vol] 61 U/L Normal 46-116 [facility] Comment on above: Performed By: #### C MP #### [facility] [address] [address] [address] Andrade Alvarado ALT [Catalytic activity/Vol] 23 U/L Normal 14-59 [facility] Comment on above: Performed By: #### C MP #### [facility] [address] [place] [address] Dr. Andrade Alvarado Anion gap [Moles/Vol] 15.5 mmol/L Normal [facility] Comment on above: Performed By: #### C MP #### [facility] [address] [place] [address] Dr. Andrade Alvarado AST [Catalytic activity/Vol] 20 U/L Normal 15-37 [facility] Comment on above: Performed By: #### C MP #### [facility] [address] [address] [address] Andrade Alvarado Bilirubin [Mass/Vol] 0.5 mg/dL Normal 0.2-1.0 [facility] Comment on above: Performed By: #### C MP #### [facility] [address] [place] [address] Dr. Andrade Alvarado Calcium [Mass/Vol] 9.1 mg/dL Normal 8.5-10.1 [facility] Comment on above: Performed By: #### C MP #### [facility] [address] [address] [address] Andrade Alvarado Chloride [Moles/Vol] 106 mmol/L Normal 98-107 [facility] Comment on above: Performed By: #### C MP #### [facility] [address] [address] [address] Andrade Alvarado CO2 [Moles/Vol] 25.6 mmol/L Normal 21.0-32.0 [facility] Comment on above: Performed By: #### C MP #### [facility] [address] [address] [address] Andrade Alvarado Creatinine [Mass/Vol] 0.97 mg/dL Normal 0.55-1.02 [facility] Comment on above: Performed By: #### C MP #### [facility] [address] [address] [address] Andrade Alvarado EGFR-AF SAO TOMEAN >60 Normal >=60 [facility] Comment on above: Performed By: #### C MP #### [facility] [address] [address] [address] Andrade Alvarado EGFR-NON AF SAO TOMEAN 58 mL/min/1.73m2 Critically low >=60 [facility] Comment on above: Performed By: #### C MP #### [facility] [address] [address] [address] Andrade Alvarado Globulin (S) [Mass/Vol] 3.2 g/dL Normal [facility] Comment on above: Performed By: #### C MP #### [facility] [address] [address] [address] Andrade Alvarado Glucose [Mass/Vol] 91 mg/dL Normal 74-106 [facility] Comment on above: Performed By: #### C MP #### [facility] [address] [address] [address] Andrade Alvarado Potassium [Moles/Vol] 4.1 mmol/L Normal 3.5-5.1 [facility] Comment on above: Performed By: #### C MP #### [facility] [address] [address] [address] Andrade Alvarado Protein [Mass/Vol] 7.4 g/dL Normal 6.4-8.2 [place] Comment on above: Performed By: #### C MP #### [facility] [address] [address] [address] Andrade Alvarado Sodium [Moles/Vol] 143 mmol/L Normal 136-145 [place] Comment on above: Performed By: #### C MP #### [facility] [address] [address] [address] Andrade Alvarado Urea nitrogen [Mass/Vol] 18.0 mg/dL Normal 7.0-18.0 [facility] Comment on above: Performed By: #### C MP #### [facility] [address] [address] [address] Andrade Alvarado Urea nitrogen/Creatinine [Mass ratio] 18.6 mg/mg Normal [facility] Comment on above: Performed By: #### C MP #### [facility] [address] [address] [address] Andrade Alvarado SED RATE [facility] 2021 SED RATE 15 mm/hr Normal <=30 [facility] Comment on above: Performed By: #### S EDR #### [facility] [address] [address] [address] Andrade Alvarado KNEE LEFT 3 [facility] 04-25-2020 KNEE LEFT 3 S [facility] Department of Radiology [address] [place] [id number] Patient Name: RADHA ZAIDI : 1960 Sex: F Age: Race: White Pt. Location: Patient Status: Ordered Date: 04/25/2020 8:25:00 AM Completed Date: 04/25/2020 08:24 AM Requesting Provider: ALEXANDRA MARS Attending Provider: Report Copy To: Signs & Symptoms: S82.832K Oth fx upr and low end l fibula, subs for clos fx w nonunion I10 History: [place] Comments: Evaluate Exam: KNEE LEFT 3 S KNEE LEFT 3 S 04/25/2020 8:24 AM [...] visible. Electronically signed: Eliezer Cam. Transcribed by: [email or web address], User Resident: Electronically Signed by: ELIEZER CAM @ 04/25/2020 11:44 AM Normal [facility] Comment on above: Order Comment: Evalu ate TIBIA FIBULA LEFTon 03-27-20 20 TIBIA FIBULA LEFT [facility] Department of Radiology [address] [place] [id number] Patient Name: RADHA ZAIDI : 1960 Sex: F Age: Race: White Pt. Location: 84 Patient Status: Ordered Date: 03/27/2020 8:05:00 AM Completed Date: 03/27/2020 08:35 AM Requesting Provider: CHARLI LUKE Attending Provider: Report Copy To: Signs & Symptoms: S82.832A Oth fracture of upper and lower end of left fibula, init I10 History: [employer] Comments: , , , Ordering Provider - [...] healing Electronically signed: Crissy Dubon. Transcribed by: [email or web address], User Resident: Electronically Signed by: CRISSY DUBON @ 03/27/2020 09:11 AM Normal [facility] Comment on above: Order Comment: Evalu ate Operative Reporton 0 Operative Report MR#: [id number] [facility] Pt. Name: Radha Zaidi Room #: [...] were bluntly retracted. We then used a [place] as well as a hemostat to debride [...] Paniagua MD Date Trans: 03/13/2020 02:26 A/bryson [id number] cc: John Ashby D.O. [address] [place] [id number] Normal [facility] KNEE LEFT 1 OR 2 VWSon 03-12 KNEE LEFT 1 OR 2 VWS [facility] Department of Radiology [address] [place] [id number] Patient Name: RADHA ZAIDI : 1960 [...] fracture. Electronically signed: Rahul James. Transcribed by: [email or web address], User Resident: Electronically Signed by: RAHUL JAMES @ 03/12/2020 03:20 PM Normal [facility] Comment on above: Order Comment: Evalu ate POC GLUCOSE LABon 03-12-2020 Glucose [Mass/Vol] 103 mg/dL High 70-100 [facility] Comment on above: Performed By: #### 8 5499 ####[facility] *MRSA/MSSA DNA NASALon 03-08 *MRSA/MSSA DNA NASAL Clinical Report: (D ) Specimen: NASAL SWAB Collected: 03/08/2020 14:02 Status: Final Last Updated: 03/09/2020 09:30 MSSA DNA (Final) Negative MRSA DNA (Final) Negative Normal [facility] Comment on above: Performed By: #### 3 1595 ####[facility] *SARS-CoV-2 COVID-19on 03-08 [id number] Not Detected Normal Not Detected [facility] Comment on above: Order Comment: The A ptima SARS-CoV-2 assay is a nucleic acid amplification test intended for the qualitative detection of RNA from SARS-CoV-2 isolated and purified from nasopharyngeal (GRIT REMOVAL OPERATOR),oropharyngeal (OP), nasal swab, sputum, and bronchoalveolar lavage (BAL) specimens from patients with signs and symptoms of infection who are suspected of COVID-19. Results are for the identification of SARS-CoV-2 RNA. The SARS-CoV-2 RNA is generally detectable during the acute phase of infection. The Aptima SARS-CoV-2 Assay on the [employer] and [employer] system is intended for use by laboratory personnel specifically instructed and trained in the operation of the [employer] system. The Aptima SARS-CoV-2 assay is [...] information. Performed By: #### 3 1792 #### [facility] [address] [place] [address], [facility] APTTon 03-08-2020 aPTT Coag (Bld) [Time] 26.9 s Normal 25.0-35.0 [facility] Comment on above: Result Comment: ALL [...] THIS PURPOSE. Performed By: #### 5 6101, 31975 ####[facility] [place] [address], [facility] BASIC METABOLIC PANELon 08- Calcium [Mass/Vol] 9.7 mg/dL Normal 8.6-10.3 [facility] Comment on above: Performed By: #### 0 0071 #### [facility] [address] [place] [address], [facility] Chloride [Moles/Vol] 103 mmol/L Normal 98-107 [facility] Comment on above: Performed By: #### 0 0071 #### [facility] [address] [place] [address], [facility] CO2 [Moles/Vol] 31 mmol/L Normal 21-31 [facility] Comment on above: Performed By: #### 0 0071 #### [facility] [address] [place] [address], [facility] Creatinine [Mass/Vol] 0.87 mg/dL Normal 0.60-1.20 [facility] Comment on above: Performed By: #### 0 0071 #### [facility] [address] [place] [address], [facility] GFR/1.73 sq M predicted among blacks MDRD (S/P/Bld) [Vol rate/Area] mL/min/{1.73_m2} Normal >60 [facility] Comment on above: Performed By: #### 0 0071 #### [facility] [address] GFR/1.73 sq M predicted among non-blacks MDRD (S/P/Bld) [Vol rate/Area] mL/min/{1.73_m2} Normal >60 [facility] Comment on above: Performed By: #### 0 0071 #### [facility] [address] Glucose [Mass/Vol] 106 mg/dL High 70-100 [facility] Comment on above: Performed By: #### 0 0071 #### [facility] [address] Potassium [Moles/Vol] 4.3 mmol/L Normal 3.5-5.1 [facility] Comment on above: Performed By: #### 0 0071 #### [facility] [address] Sodium [Moles/Vol] 141 mmol/L Normal 136-145 [facility] Comment on above: Performed By: #### 0 0071 #### [facility] [address] Urea nitrogen [Mass/Vol] 14 mg/dL Normal 7-25 [facility] Comment on above: Performed By: #### 0 0071 #### [facility] [address] [place] [address], [facility] CBC W/DIFFon 03-08-2020 ABS BASOPHILS 0.1 10*3/uL Normal 0.0-0.2 [facility] Comment on above: Performed By: #### 5 3 ####[facility] ABS IMM GRANS 0.0 10*3/uL Normal 0.0-0.2 [facility] Comment on above: Performed By: #### 5 0103 ####[facility] [place] [address], [facility] ABS NEUTROPHILS 3.4 10*3/uL Normal 1.6-7.6 [facility] Comment on above: Performed By: #### 5 0103 ####[facility] [facility] [place] [address], [facility] Basophils/100 WBC (Bld) 0.8 % Normal 0.0-1.0 [facility] Comment on above: Performed By: #### 5 0103 ####[facility] [facility] [place] [address], [facility] Eosinophils (Bld) [#/Vol] 0.7 10*3/uL High 0.0-0.5 [facility] Comment on above: Performed By: #### 5 0103 ####[facility] [facility] [place] [address], [facility] Eosinophils/100 WBC (Bld) 9.5 % High 0.0-6.0 [facility] Comment on above: Performed By: #### 5 0103 ####[facility]3000 [facility].[address] Erythrocyte distribution width (RBC) [Ratio] 13.6 % Normal 11.5-15.0 [facility] Comment on above: Performed By: #### 5 0103 ####[facility] [facility] Hematocrit (Bld) [Volume fraction] 42.5 % Normal 36.0-45.0 [facility] Comment on above: Performed By: #### 5 0103 ####[facility] [facility] [place] [place] [address], [facility] Hemoglobin (Bld) [Mass/Vol] 13.7 g/dL Normal 12.0-15.0 [facility] Comment on above: Performed By: #### 5 3 ####[facility] IMMATURE GRANS 0.3 % Normal 0.0-1.0 [facility] Comment on above: Performed By: #### 5 0103 ####[address] Lymphocytes (Bld) [#/Vol] 2.7 10*3/uL Normal 1.2-4.0 [facility] Comment on above: Performed By: #### 3 ####[facility] [place] [address] Lymphocytes/100 WBC (Bld) 35.1 % Normal 20.0-45.0 [facility] Comment on above: Performed By: #### 102 ####[address] MCH (RBC) [Entitic mass] 31.2 pg Normal 27.0-33.0 [facility] Comment on above: Performed By: #### 102 ####[address] MCHC (RBC) [Mass/Vol] 32.2 g/dL Normal 32.0-35.0 [facility] Comment on above: Performed By: #### 3 ####[facility] [place] [address] MCV (RBC) [Entitic vol] 96.8 fL Normal 82.0-98.0 [facility] Comment on above: Performed By: #### 5 3 ####[address] Monocytes (Bld) [#/Vol] 0.8 10*3/uL Normal 0.1-1.0 [facility] Comment on above: Performed By: #### 3 ####[address] [place] [address], [facility] MONOS 9.8 % Normal 5.0-12.0 [facility] Comment on above: Performed By: #### 5 0103 ####[facility] [facility] [place] [address], [facility] Neutrophils/100 WBC (Bld) 44.5 % Normal 40.0-72.0 [facility] Comment on above: Performed By: #### 5 0103 ####[facility] [facility] [place] [address], [facility] Nucleated RBC/100 WBC (Bld) [Ratio] 0 % Normal 0-0 [facility] Comment on above: Performed By: #### 5 0103 ####[place] [address] [address] PLAT CNT 230 10*3/uL Normal 150-400 [facility] Comment on above: Performed By: #### 5 0103 ####[facility] [facility] [place] [address], [facility] RBC (Bld) [#/Vol] 4.39 10*6/uL Normal 3.80-5.00 [facility] Comment on above: Performed By: #### 5 0103 ####[facility] [facility] [place] [address], [facility] WBC (Bld) [#/Vol] 7.72 10*3/uL Normal 4.00-10.60 [facility] Comment on above: Performed By: #### 5 0103 ####[facility] PROTHROMBIN TIMEon 0 INR Coag (PPP) [Relative time] 0.99 {INR} Normal 0.91-1.16 [facility] Comment on above: Result Comment: ACCC [...] CHEST 1995;108:231S-246S. Performed By: #### 5 6101, 86707 #### [facility] [address] PT Coag (PPP) [Time] 13.1 s Normal 12.3-14.8 [facility] Comment on above: Result Comment: ALL RESULTS MUST BE INTERPRETED WITH RESPECT TO BLOOD DRAWING ARTIFACT OR DILUTION ERROR OF ANTICOAGULANT AT THE TIME OF SAMPLING. Performed By: #### 5 6101, 96819 #### [facility] [address] [facility] [address] ALBUMIN BLOODon 02-04-2020 Albumin [Mass/Vol] 4.5 g/dL Normal 3.5-5.7 [facility] Comment on above: Performed By: #### 3 0728, 77798, 14089, 93326, 70916 #### [facility] [address] [facility] [place] [address], [facility] BASIC METABOLIC PANELon 01-09 Calcium [Mass/Vol] 9.5 mg/dL Normal 8.6-10.3 [facility] Comment on above: Performed By: #### 3 0728, 77477, 44054, 83097, 25630 #### [facility] [address] [place] [address], [place] Chloride [Moles/Vol] 105 mmol/L Normal 98-107 [facility] Comment on above: Performed By: #### 3 0728, 88478, 94413, 83219, 65638 #### [facility] [address] [place] [address], [place] CO2 [Moles/Vol] 27 mmol/L Normal 21-31 [facility] Comment on above: Performed By: #### 3 0728, 57114, 84579, 99415, 28642 #### [facility] [address] [place] [address], [place] Creatinine [Mass/Vol] 0.81 mg/dL Normal 0.60-1.20 [facility] Comment on above: Performed By: #### 3 0728, 51838, 70009, 56078, 52569 #### [facility] [address] [place] [address], [place] GFR/1.73 sq M predicted among blacks MDRD (S/P/Bld) [Vol rate/Area] mL/min/{1.73_m2} Normal >60 [facility] Comment on above: Performed By: #### 3 0728, 57007, 09211, 22904, 39377 #### [facility] [address] [place] [address], [place] GFR/1.73 sq M predicted among non-blacks MDRD (S/P/Bld) [Vol rate/Area] mL/min/{1.73_m2} Normal >60 [facility] Comment on above: Performed By: #### 3 0728, 46373, 58519, 01956, 84743 #### [facility] [address] [place] [address], [place] Glucose [Mass/Vol] 115 mg/dL High 70-100 [facility] Comment on above: Performed By: #### 3 0728, 32657, 03694, 30916, 40787 #### [facility] [address] [place] [address], [facility] Potassium [Moles/Vol] 3.9 mmol/L Normal 3.5-5.1 [facility] Comment on above: Performed By: #### 3 0728, 44858, 69216, 00888, 33244 #### [facility] [address] [place] [address], [facility] Sodium [Moles/Vol] 140 mmol/L Normal 136-145 [facility] Comment on above: Performed By: #### 3 0728, 45989, 94824, 56025, 50791 #### [facility] [address] [facility] [place] [address], [facility] Urea nitrogen [Mass/Vol] 20 mg/dL Normal 7-25 [facility] Comment on above: Performed By: #### 3 0728, 36247, 40780, 16103, 28225 #### [facility] [address] [facility] [place] [address], [facility] PREALBUMINon 02-04-2020 Prealbumin [Mass/Vol] 24.0 mg/dL Normal 17.0-34.0 [facility] Comment on above: Performed By: #### 3 0728, 58584, 50379, 59936, 55974 #### [facility] [address] [facility]. [address] TIBIA FIBULA LEFTon 02-04-20 20 TIBIA FIBULA LEFT [facility] Department of Radiology [address] [place] [address] Patient Name: RADHA ZAIDI : [...] indicated. Electronically signed: Eliezer Randolph. Transcribed by: [email or web address], User Resident: Electronically Signed by: ELIEZER RANDOLPH @ 02/04/2020 10:34 AM Normal [facility] TRANSFERRINon 02-04-2020 Transferrin [Mass/Vol] 270 mg/dL Normal 203-362 [facility] Comment on above: Performed By: #### 3 7828, 47620, 06394, 08475, 60128 #### [facility] [address] [facility] [place] [address], [facility] VITAMIN D 25-HYDROXYon 02-03 VITAMIN D 25-OH 38.5 ng/mL Normal 30.0-80.0 [facility] Comment on above: Result Comment: >80. 0 Toxicity possible Performed By: #### 3 0728, 38790, 13256, 61523, 76094 #### [facility] [place] [address], [facility] 07-06-2018 L - -------- Specimen: [id number] Received: 07/06/18 Status: JONI Daleyricardo Num: [id number] Spec Type: Surgical Subm Dr: Tash Resendez MD Tissues: A Finger - Amputation, Non-traumatic (LT SMALL FINGER) Procedures: HE Stain/2, Gross/Micro L4, Declisette -------- Patient Age/Sex Location Account Attending Physician -------- Radha Zaidi 58/F [place] [id number] Tash Resendez MD -------- SPEC NUM: [id number] RECD: 07/06/18 STATUS: JONI LAZARO NUM: [id number] RUSS: 07/06/18 DR: Tash Resendez MD ENTERED: 07/06/18 [facility] DR: JULIUS TYPE: Surgical DEPT: S [...] reveals yellow, viable appearing bony cut surfaces. Rail Walker sections are submitted in two cassettes, decal. (ENRIKE/NAA/lina) -------- Specimen: [id number] Received: 07/06/18 Status: KAROLINAMulu Lazaro Num: [id number] Spec Type: Surgical Subm Dr: Tash Resendez MD Tissues: A Finger - Amputation, Non-traumatic (LT SMALL FINGER) Procedures: HE Stain/2, Gross/Micro L4, Decal -------- Patient: ZaidiRadha [id number] (Continued) -------- Specimen: [id number] Received: 07/06/18 (Continued) Signed (signature on file) Harsh Jo MD 08/14/18 1503 -------- Specimen: [id number] Received: 07/06/18 Status: JONI Daleyq Num: [id number] Spec Type: Surgical Subm Dr: Tash Resendez MD Tissues: A Finger - Amputation, Non-traumatic (LT SMALL FINGER) Procedures: HE Stain/2, Gross/Micro L4, Decal -------- Patient: Radha Zaidi [id number] (Continued) -------- Specimen: [id number] Received: 07/06/18 (Continued) Microscopic Two glass slides with H E stained material have been examined. The microscopic findings support the above pathologic diagnosis. [id number], [id number] A. - - LT SMALL FINGER -------- -------- Specimen: [id number] Received: 07/06/18 Status: JONI Lazaro Num: [id number] Spec Type: Surgical Subm Dr: Tash Resendez MD Tissues: A Finger - Amputation, Non-traumatic (LT SMALL FINGER) Procedures: HE Stain/2, Gross/Micro L4, Decal -------- Patient: Radha Zaidi [id number] (Continued) -------- Signed (signature on file) Harsh Jo MD 08/14/18 1503 Normal [facility] FLUORO FOR SURGICAL PROCEDUR ESon 10-20-2017 FLUORO FOR SURGICAL PROCEDURES Exam: FLUORO FOR SURGICAL PROCEDURESHistory: ACDF Fusion Findings: Fluoroscopy time was 70 seconds A total of 19 fluoroscopic images were obtained by Dr. Cheng during the anterior cervical discectomy in the lower cervical spine.IMPRESSION: Impression: Fluoroscopic assistance provided for operative guidance.Interpreted by:DIANA Lealigned by:Eugene Cancino MD10/20/17inal result Normal [facility] Basic Metabolic Panelon 04-0 Anion gap 15 mmol/L Critically high 7-13 [facility] Calcium 9.6 mg/dL Normal 8.6-10.2 [facility] Chloride 102 mmol/L Normal 98-107 [facility] CO2 23 mmol/L Normal 22-29 [facility] Creatinine 0.54 mg/dL Normal 0.50-0.90 [facility] eGFR (black) mL/min/{1.73_m2} Normal >60 [facility] Comment on above: Result Comment: >60 mL/min/1.73m2 EGFR, calc. for ages 18 and older using theMDRD formula (not corrected for weight), is valid for stablerenal function. eGFR (MDRD) mL/min/{1.73_m2} Normal >60 [facility] Comment on above: Result Comment: >60 mL/min/1.73m2 EGFR, calc. for ages 18 and older using theMDRD formula (not corrected for weight), is valid for stablerenal function. Glucose mass conc 97 mg/dL Normal 74-109 [facility] Potassium molar conc 4.8 mmol/L Normal 3.5-5.1 [facility] Sodium 140 mmol/L Normal 132-144 [facility] Urea nitrogen 14 mg/dL Normal 6-20 [facility] CBC With Platelet No Differe ntialon 10-13-2017 Erythrocyte distribution width Auto Ratio (RBC) 13.3 % Normal 11.5-14.5 [facility] Erythrocytes (RBC) 4.96 10*6/uL Normal 4.20-5.40 [facility] Hematocrit (HCT) 47.1 % Critically high 37.0-47.0 [facility] Hemoglobin mass conc (Bld) 16.2 g/dL Critically high 12.0-16.0 [facility] MCH 32.7 pg Critically high 27.0-31.3 [facility] MCHC mass conc (RBC) 34.4 % Normal 33.0-37.0 [facility] MCV 95.0 fL Normal 82.0-100.0 [facility] Platelets 223 10*3/uL Normal 130-400 [facility] WBC (Leukocytes) 6.2 10*3/uL Normal 4.8-10.8 [facility] Culture, MRSA Screenon 10-13 Culture, MRSA Screen ORDERED BY: VITO STALLWORTH: Nares Nose COLLECTED: 10/13/17 13:18ANTIBIOTICS AT RUSS.: RECEIVED : 10/13/17 13:18Culture, MRSA Screen FINAL 10/14/17 13:59 No MRSA isolated Normal [facility] Partial Thromboplastin Timeo n 10-13-2017 aPTT 22.9 s Normal 21.6-35.4 [facility] Comment on above: Result Comment: Hepa rin Therapeutic Range: 38.8 - 54.6 seconds. Prothrombin Timeon 8 INR Coag RelTime (PPP) 1.0 {INR} Normal [facility] Comment on above: Result [...] Coag time (PPP) 10.0 s Normal 8.1-13.7 [facility] Type and Screen Capture 3 sc rn cellon 10-13-2017 Bilirubin (total) PATIENT: DYAN GARCIA LOC: [facility] BILL# : [id number] : 1960 SEX: FORDERED BY: BASIM CHENG ORDERED : 10/13/2017 12:41 COLLECTED: 10/13/2017 13:24ORDER : [id number] RECEIVED : 10/13/2017 13:24 T EST NAME RESULT UNITS RANGES ABN FL STABORH Capture A POS FAntibody 3 Cell Scrn Captu NEG F Normal [facility] Urinalysis, reflex to cultur gabbie 10-13-2017 Bilirubin Ql (U) Negative Normal Negative [facility] Urine Reflexed to Culture Not Indicated Normal [facility] Urine, clarity Clear Normal Clear [facility] Urine, color Yellow Normal Straw/[place] [facility] Urine, glucose presence Negative Normal Negative [facility] Urine, hemoglobin presence Negative Normal Negative [facility] Urine, ketones presence Negative Normal Negative [facility] Urine, leukocyte esterase presence Negative Normal Negative [facility] Urine, nitrite presence Negative Normal Negative [facility] Urine, pH 5.5 [pH] Normal 5.0-9.0 [facility] Urine, protein presence Negative Normal Negative [facility] Urine, specific gravity 1.018 Normal 1.005-1.03 [facility] Urine, urobilinogen 0.2 {Rajwinder'U}/dL Normal < 2.0 [facility] Vital Signs Date Time Vital Sign Value Performing Clinician Facility 03-19-2024 12:28-0400 Diastolic blood pressure 71 mm[Hg] Jordan Zzish [facility] 03-19-2024 12:28-0400 Systolic blood pressure 126 mm[Hg] Jordan Zzish [facility] 03-19-2024 12:27-0400 Blood Pressure Location Jordan [email or web address] [facility] 03-19-2024 12:27-0400 Body temperature 97.88 [degF] Jordan Zzish [facility] 03-19-2024 12:27-0400 Diastolic blood pressure 78 mm[Hg] Jordan Zzish [facility] 03-19-2024 12:27-0400 Heart rate 75 /min Jordan Zzish [facility] 03-19-2024 12:27-0400 Mean blood pressure 94 mm[Hg] Jordan Zzish [facility] 03-19-2024 12:27-0400 Respiratory rate 15 /min Jordan Zzish [facility] 03-19-2024 12:27-0400 SaO2% (BldA) [Mass fraction] 97 % Jordan Yuan [facility] 03-19-2024 12:27-0400 Systolic blood pressure 127 mm[Hg] Jordan Yuan [facility] 02-29-2024 09:29-0400 Body height 165.1 cm [facility] 02-29-2024 09:29-0400 Body mass index (BMI) [Ratio] 24.1 kg/m2 [facility] 02-29-2024 09:29-0400 Body weight 65.82 kg [facility] 02-29-2024 09:29-0400 Diastolic blood pressure 81 mm[Hg] [facility] 02-29-2024 09:29-0400 Heart rate 74 /min [facility] 02-29-2024 09:29-0400 Respiratory rate 12 /min [facility] 02-29-2024 09:29-0400 Systolic blood pressure 129 mm[Hg] [facility] 12-28-2023 15:31-0400 Body height 165.1 cm [facility] 12-28-2023 15:31-0400 Body mass index (BMI) [Ratio] 25.7 kg/m2 [facility] 12-28-2023 15:31-0400 Body weight 70.08 kg [facility] 12-28-2023 15:31-0400 Diastolic blood pressure 75 mm[Hg] [facility] 12-28-2023 15:31-0400 Heart rate 92 /min [facility] 12-28-2023 15:31-0400 Respiratory rate 12 /min [facility] 12-28-2023 15:31-0400 Systolic blood pressure 112 mm[Hg] [facility] 09-28-2023 15:16-0400 Body height 165.1 cm [facility] 09-28-2023 15:16-0400 Body mass index (BMI) [Ratio] 27.8 kg/m2 [facility] 09-28-2023 15:16-0400 Body weight 75.92 kg [facility] 09-28-2023 15:16-0400 Diastolic blood pressure 68 mm[Hg] [facility] 09-28-2023 15:16-0400 Heart rate 80 /min [facility] 09-28-2023 15:16-0400 Respiratory rate 12 /min [facility] 09-28-2023 15:16-0400 Systolic blood pressure 130 mm[Hg] [facility] 09-05-2023 21:48-0500 Body height 166.37 cm John Ball Other [employer] Other 09-05-2023 16:33-0500 Body height 165.1 cm [facility] 09-05-2023 16:33-0500 Body mass index (BMI) [Ratio] 28.5 kg/m2 [facility] 09-05-2023 16:33-0500 Body weight 77.79 kg [facility] 09-05-2023 16:33-0500 Diastolic blood pressure 69 mm[Hg] [facility] 09-05-2023 16:33-0500 Heart rate 97 /min [facility] 09-05-2023 16:33-0500 Systolic blood pressure 115 mm[Hg] [facility] 08-18-2023 15:40-0500 Body height 162.6 cm Jordan Zilift Work Phone: [facility] 08-18-2023 15:40-0500 Body mass index (BMI) [Ratio] 28.15 kg/m2 Jordan Zzish DO Work Phone: [facility] 08-18-2023 15:40-0500 Body temperature 97.11 [degF] Jordan Zzish DO Work Phone: [facility] 08-18-2023 15:40-0500 Body weight 74.39 kg Jordan Zzish DO Work Phone: [facility] 08-17-2023 15:00-0500 Body height 166.37 cm John Ball Other [employer] Other 08-17-2023 15:00-0500 Body mass index (BMI) [Ratio] 28.12 kg/m2 John Ball Other [employer] Other 08-17-2023 15:00-0500 Body weight 77.84 kg John Ball Other [employer] Other 08-17-2023 15:00-0500 Diastolic blood pressure 79 mm[Hg] John Ball Other [employer] Other 08-17-2023 15:00-0500 Respiratory rate 12 /min [employer] Other [employer] Other 08-17-2023 15:00-0500 Systolic blood pressure 126 mm[Hg] [employer] Other [employer] Other 04-07-2023 14:00-0400 Body temperature 97.52 [degF] Jordan Zzish [facility] 04-07-2023 14:00-0400 Diastolic blood pressure 63 mm[Hg] [employer]Suzhou [employer] [facility] 04-07-2023 14:00-0400 Heart rate 88 /min [employer]Suzhou [employer] [facility] 04-07-2023 14:00-0400 Mean blood pressure 76 mm[Hg] [employer]Suzhou [employer] [facility] 04-07-2023 14:00-0400 SaO2% (BldA) [Mass fraction] 94 % Jordan Zzish [facility] 04-07-2023 14:00-0400 Systolic blood pressure 101 mm[Hg] Jordan Zzish [facility] 04-07-2023 08:47-0400 Diastolic blood pressure 75 mm[Hg] [employer]Suzhou [employer] [facility] 04-07-2023 08:47-0400 Systolic blood pressure 125 mm[Hg] Jordan Yuan [facility] 04-07-2023 07:45-0400 Blood Pressure Location Jordan Yuan [facility] 04-07-2023 07:45-0400 Body temperature 97.88 [degF] Jordan Yuan [facility] 04-07-2023 07:45-0400 Diastolic blood pressure 75 mm[Hg] Jordan Yuan [facility] 04-07-2023 07:45-0400 Heart rate 72 /min Jordan Yuan [facility] 04-07-2023 07:45-0400 [employer] Jordan Yuan [facility] 04-07-2023 07:45-0400 Mean blood pressure 92 mm[Hg] Jordan Yuan [facility] 04-07-2023 07:45-0400 [employer] Jordan Yuan [facility] 04-07-2023 07:45-0400 Respiratory rate 16 /min Jordan Yuan [facility] 04-07-2023 07:45-0400 SaO2% (BldA) [Mass fraction] 96 % Jordan Yuan [facility] 04-07-2023 07:45-0400 Systolic blood pressure 125 mm[Hg] Jordan Yuan [facility] 04-07-2023 06:17-0400 [employer] Jordan Yuan [facility] 04-07-2023 06:17-0400 [employer] Jordan Yuan [facility] 09-28-2023 05:05-0400 [employer] Jordan Yuan [facility] 04-07-2023 05:05-0400 [employer] Jordan Yuan [facility] 04-06-2023 22:20-0400 Blood Pressure Location Jordan Yuan [facility] 04-06-2023 22:20-0400 Body temperature 98.24 [degF] Jordan Yuan [facility] 04-06-2023 22:20-0400 Heart rate 74 /min Jordan Yuan [facility] 04-06-2023 22:20-0400 Mean blood pressure 78 mm[Hg] Jordan Yuan [facility] 04-06-2023 22:20-0400 Respiratory rate 16 /min Jordan Yuan [facility] 04-06-2023 22:20-0400 SaO2% (BldA) [Mass fraction] 93 % Jordan Yuan [facility] 04-06-2023 20:10-0400 Heart rate 65 /min Jordan Yuan [facility] 04-06-2023 20:01-0400 Body temperature 97.34 [degF] Jordan uYan [facility] 04-06-2023 20:00-0400 Mean blood pressure 86 mm[Hg] Jordan Yuan [facility] 04-06-2023 16:17-0400 Mean blood pressure 97 mm[Hg] Jordan Yuan [facility] 04-06-2023 16:16-0400 Body temperature 97.52 [degF] Jordan Yuan [facility] 04-06-2023 13:49-0400 Mean blood pressure 88 mm[Hg] Jordan Brown [facility] 04-06-2023 12:45-0400 Respiratory rate 13 /min Jordan Brown [facility] 04-06-2023 12:35-0400 Respiratory rate 10 /min Jordan Yuan [facility] 04-06-2023 12:20-0400 Respiratory rate 17 /min Jordan Zzish [facility] 04-06-2023 11:37-0400 Body temperature 96.98 [degF] Jordan Zzish [facility] 04-06-2023 06:39-0400 Heart rate 68 /min Jordan Zzish [facility] 03-24-2023 14:52-0400 Diastolic blood pressure 76 mm[Hg] Jordan Zzish [facility] 03-24-2023 14:52-0400 Heart rate 67 /min Jordan Zzish [facility] 03-24-2023 14:52-0400 Mean blood pressure 99 mm[Hg] Jordan Zzish [facility] 03-24-2023 14:52-0400 Systolic blood pressure 144 mm[Hg] Jordan Zzish [facility] 03-24-2023 14:52-0400 Heart rate 68 /min Jordan Zzish [facility] 03-24-2023 14:52-0400 SaO2% (BldA) [Mass fraction] 99 % Jordan Zzish [facility] 03-24-2023 14:52-0400 Diastolic blood pressure 75 mm[Hg] Jordan Zzish [facility] 03-24-2023 14:52-0400 Mean blood pressure 93 mm[Hg] Jordan Yuan [facility] 03-24-2023 14:52-0400 Systolic blood pressure 128 mm[Hg] Jordan Yuan [facility] 03-24-2023 14:51-0400 Respiratory rate 16 /min Jordan Yuan [facility] 01-10-2023 15:00-0400 Body height 166.37 cm John Ball Other [facility] [employer] Other 01-10-2023 15:00-0400 Body mass index (BMI) [Ratio] 27.04 kg/m2 John Ball Other [employer] Other 01-10-2023 15:00-0400 Body weight 74.84 kg John Ball Other [employer] Other 01-10-2023 15:00-0400 Diastolic blood pressure 86 mm[Hg] John Ball Other [employer] Other 01-10-2023 15:00-0400 Respiratory rate 12 /min John Ball Other [employer] Other 01-10-2023 15:00-0400 Systolic blood pressure 124 mm[Hg] John Ball Other [employer] Other 12-09-2022 09:00-0400 Body height 166.37 cm John Ball Other [employer] Other 12-09-2022 09:00-0400 Body mass index (BMI) [Ratio] 27.33 kg/m2 John Ball Other [employer] Other 12-09-2022 09:00-0400 Body weight 75.66 kg John Ball Other [employer] Other 12-09-2022 09:00-0400 Diastolic blood pressure 71 mm[Hg] John Ball Other [employer] Other 12-09-2022 09:00-0400 Respiratory rate 12 /min John Ball Other [employer] Other 12-09-2022 09:00-0400 Systolic blood pressure 111 mm[Hg] John Ball Other [employer] Other 11-09-2022 15:00-0400 Body height 166.37 cm John Ball Other [employer] Other 11-09-2022 15:00-0400 Body mass index (BMI) [Ratio] 27.36 kg/m2 John Ball Other [employer] Other 11-09-2022 15:00-0400 Body weight 75.75 kg John Ball Other [employer] Other 11-09-2022 15:00-0400 Diastolic blood pressure 80 mm[Hg] John Ball Other [employer] Other 11-09-2022 15:00-0400 Respiratory rate 12 /min John Ball Other [employer] Other 11-09-2022 15:00-0400 Systolic blood pressure 135 mm[Hg] John Ball Other [employer] Other 07-26-2022 16:30-0500 Body height 166.37 cm John Ball Other [employer] Other 07-26-2022 16:30-0500 Body mass index (BMI) [Ratio] 26.28 kg/m2 John Ball Other [employer] Other 07-26-2022 16:30-0500 Body weight 72.76 kg John Ashby Other [employer] Other 07-26-2022 16:30-0500 Diastolic blood pressure 78 mm[Hg] John Ashby Other [employer] Other 07-26-2022 16:30-0500 Respiratory rate 12 /min John Ashby Other [employer] Other 07-26-2022 16:30-0500 Systolic blood pressure 122 mm[Hg] John Ashby Other [employer] Other Encounters Encounter Date Encounter Type Care Provider Facility Start: 03-19-2024 End: 03-19-2024 ambulatory Jordan Yuan Facility:[facility] Start: 03-19-2024 End: 03-19-2024 Patient encounter procedure Jordan Yuan [facility] Start: 02-29-2024 End: 02-29-2024 ambulatory [facility] Work Phone: Start: 02-29-2024 End: 02-29-2024 Patient encounter procedure [facility] Physician [facility] [employer] [facility] Work Phone: Start: 02-23-2024 End: 02-23-2024 ambulatory JORDAN YUAN Not Available Start: 02-14-2024 Non-patient / Non-visit [facility] Physician [facility] Work Phone: Start: 02-02-2024 Non-patient / [facility] Work Phone: Start: 12-28-2023 End: 12-28-2023 ambulatory [facility] Work Phone: Start: 12-28-2023 End: 12-28-2023 Patient encounter procedure [facility] Physician [facility] Work Phone: Start: 11-15-2023 End: 11-15-2023 ambulatory JORDAN YUAN Not Available Start: 11-04-2023 End: 11-04-2023 ambulatory [facility] Start: 09-28-2023 End: 09-28-2023 ambulatory [facility] Work Phone: Start: 09-28-2023 End: 09-28-2023 Patient encounter procedure [facility] Physician [facility] Work Phone: Start: 09-13-2023 End: 09-13-2023 ambulatory JORDAN YUAN Not Available Start: 09-06-2023 End: 09-06-2023 ambulatory Jordan Yuan Facility:[facility] Start: 09-06-2023 End: 09-06-2023 Patient encounter procedure Jordan Yuan [facility] Start: 09-05-2023 Non-patient / Non-visit [facility] Work Phone: Start: 09-05-2023 End: 09-05-2023 ambulatory John Ashby Other [facility] [employer] Other Start: 09-05-2023 Telephone encounter John Ashby [facility] Start: 09-02-2023 Non-patient / Non-visit [facility] Physician [facility] Work Phone: Start: 08-30-2023 Non-patient / Non-visit [facility] Work Phone: Start: 08-18-2023 End: 08-18-2023 Patient encounter procedure Jordan Yuan DO Work Phone: [facility] Comment on above: Right shoulder pain, unspecified chronicity (Primary Dx) Start: 08-18-2023 End: 08-18-2023 ambulatory JORDAN YUAN Not Available Start: 08-18-2023 Chart abstracting Jordan do DO Work Phone: [facility] Start: 08-17-2023 End: 08-17-2023 ambulatory John Ashby Other [employer] Other Start: 08-17-2023 Encounter for genera l adult medical examination without abnormal findings John Ahsby [facility] Start: 08-17-2023 Periodic preventive med est patient 40-64yrs John Ashby [facility] Start: 07-21-2023 End: 07-21-2023 ambulatory JORDAN YUAN Not Available Start: 07-05-2023 End: 07-05-2023 ambulatory JORDAN YUAN Not Available Start: 06-28-2023 End: 06-28-2023 ambulatory John Ashby Other [facility] Other Start: 06-28-2023 Office outpatient vi sit 15 minutes John Ashby [facility] Start: 05-24-2023 End: 05-24-2023 ambulatory JORDAN YUAN Not Available Start: 05-06-2023 End: 05-06-2023 ambulatory John Ashby Other [facility] Other Start: 05-06-2023 Telephone encounter John Symone SIM[facility] Start: 04-26-2023 End: 04-26-2023 ambulatory John Ashby Other [employer] Other Start: 04-26-2023 Telephone encounter John Ashby [facility] Start: 04-06-2023 End: 04-07-2023 Admission to same day surgery center Jordan Yuan [facility] Start: 04-06-2023 End: 04-07-2023 ambulatory Jordan Yuan Facility:[facility] Start: 03-31-2023 End: 03-31-2023 ambulatory John Ashby Other [employer] Other Start: 03-31-2023 Telephone encounter John Ashby [facility] Start: 03-26-2023 End: 03-26-2023 ambulatory John Ashby Other [facility] Other Start: 03-26-2023 Telephone encounter John Ashby [facility] Start: 03-24-2023 End: 03-24-2023 ambulatory Jordan Sue Yuan Facility:[facility] Start: 03-24-2023 End: 03-24-2023 Patient encounter procedure Jordan Yuan [facility] Start: 03-21-2023 End: 03-21-2023 ambulatory John Ashby Other [employer] Other Start: 03-21-2023 Telephone encounter John Ashby [facility] Start: 01-12-2023 End: 01-12-2023 ambulatory John Ashby Other [facility] [facility] Other Start: 01-12-2023 Telephone encounter John Ashby [facility] Start: 01-10-2023 End: 01-10-2023 ambulatory John Symone Other [employer] Other Start: 01-10-2023 Office outpatient vi sit 15 minutes John Ball [facility] Start: 12-14-2022 End: 12-14-2022 ambulatory John Symone Other [facility] Other Start: 12-14-2022 Telephone encounter John Ashby [facility] Start: 12-10-2022 End: 12-10-2022 ambulatory John Ball Other [employer] Other Start: 12-10-2022 Telephone encounter John Ball [facility] Start: 12-09-2022 End: 12-09-2022 ambulatory John Ball Other [facility] Other Start: 12-09-2022 Office outpatient vi sit 15 minutes John Ball [facility] Start: 11-09-2022 End: 11-09-2022 ambulatory John Ashby Other [employer] Other Start: 11-09-2022 Office outpatient vi sit 15 minutes John Ashby [facility] Start: 10-13-2022 ambulatory NARENDRANATH LAKSHMIPATHY . Facility:[facility] Start: 10-07-2022 End: 10-08-2022 ambulatory NARENDRANATH LAKSHMIPATHY . Facility:[facility] Start: 09-22-2022 End: 09-22-2022 ambulatory John Ashby Other [facility] [facility] Other Start: 09-22-2022 Telephone encounter John Ashby [facility] Start: 09-16-2022 End: 09-17-[address] JOHN ASHBY Facility:[facility] Start: 08-14-2022 End: 08-14-2022 ambulatory John Symone Other [facility] [facility] Other Start: 08-14-2022 Telephone encounter John Ashby [facility] Start: 07-26-2022 End: 07-26-2022 ambulatory John Ashby Other [facility] [facility] Other Start: 07-26-2022 Office outpatient vi sit 15 minutes John Ashby [facility] Start: 07-22-2022 Annual wellness visit John Ashby Other [employer] Other Start: 07-22-2022 Patient encounter procedure John Ashby Other [facility] Other Start: 07-09-2022 End: 07-10-[address] JOHN ASHBY Facility:[facility] Start: 06-21-2022 Adult health examination John Symone Other [employer] Other Start: 06-21-2022 Gynecological examination normal John Ashby Other [facility] Other Start: 2022 End: 06-09-[address] JOHN ASHBY Facility:[facility] Start: 06-01-2022 End: 06-01-[address] JOHN ASHBY Facility:[facility] Start: 05-24-2022 Encounter for genera l adult medical examination without abnormal findings DR JOHN ASHBY [facility] Start: 05-20-2022 End: 05-21-[address] JOHN ASHBY Facility:[facility] Start: 05-20-2022 End: 05-21-2022 Encounter for general adult medical examination without abnormal findings DR JOHN ASHBY Facility:[facility] Start: 05-20-2022 End: 05-21-[address] JOHN ASHBY Facility:[facility] Start: 04-09-2022 ambulatory KATE LAW Facility:[facility] Start: 02-17-2022 End: 02-18-2022 ambulatory JACQUIE OLIVAS . Facility:[facility] Start: 02-16-2022 End: 02-17-[address] SO AMOS . Facility:[facility] Start: 02-02-2022 End: 02-03-[address] SO AMOS . Facility:[facility] Start: 12-24-2021 ambulatory KATE LAW Facility:[facility] Start: 10-22-2021 End: 10-23-2021 ambulatory JACQUIE OLIVAS . Facility: Start: 03-12-2020 End: 03-13-2020 Patient encounter procedure MARYURI ALEXANDER Facility:[facility] Start: 03-05-2020 End: 03-20-2020 Patient encounter procedure MARYURIELIDIA ALEXANDER Facility:[facility] Start: 10-20-2017 End: 10-21-2017 Ambulatory [facility] Start: 10-13-2017 End: 10-18-2017 Ambulatory [facility] Procedures Date Procedure Procedure Detail Performing Clinician Start: 08-18-2023 Radex shoulder compl ete minimum 2 views Jordan Yuan DO Work Phone: Start: 04-06-2023 Total shoulder replacement Jordan Yuan Start: 03-12-2020 ANESTH KNEE AREA SURGERY TASH EVANS Start: 03-12-2020 ANTIONE BONE 20 SQ CM/< NAB IL EBSUSAN Start: 03-12-2020 TREATMENT OF FIBULA FRACTURE MARYURI [...] BARRY BASIM Start: 10-13-2017 EKG 12-LEAD BARRY BASMI Start: 06-24-2014 General examination of patient John Ashby Other Amputation of finger , except thumb Jordan Yuan Cervical laminectomy Jordan Palmer loan Excision of lumbar intervertebral disc Jordan Yuan [...] [facility] [address] [place] [address] Jordan Yuan, DO [address] [place] [address] [facility] Start: 08-18-2023 End: 08-18-2023 Patient encounter procedure 08/18/2023 3:45 PM EST Office Visit [facility] [address] [place] [id number] Jordan Yuan, DO [address] [place] [address] [facility] Start: 08-18-2023 End: 08-18-2024 C reactive protein [Mass/volume] in Serum or Plasma C-reactive protein Lab Routine Right shoulder pain, unspecified chronicity Expected: 08/18/2023 (Approximate), Expires: 08/18/2024 [facility] Comment on above: Expected: 08/18/2023 (Approximate), Expires: 08/18/2024 Start: 08-18-2023 End: 08-18-2024 CBC W Auto Differential panel - Blood CBC auto differential Lab Routine Right shoulder pain, unspecified chronicity Expected: 08/18/2023 (Approximate), Expires: 08/18/2024 [facility] Work Phone: Comment on above: Expected: 08/18/2023 (Approximate), Expires: 08/18/2024 Start: 08-18-2023 End: 08-18-2024 Erythrocyte sedimentation rate Sedimentation rate, automated Lab Routine Right shoulder pain, unspecified chronicity Expected: 08/18/2023 (Approximate), Expires: 08/18/2024 [facility] Comment on above: Expected: 08/18/2023 (Approximate), Expires: 08/18/2024 Start: 08-18-2023 End: 08-18-2024 Interleukin-6 Interleukin-6 Lab Routine Right shoulder pain, unspecified chronicity Expected: 08/18/2023 (Approximate), Expires: 08/18/2024 [facility] Comment on above: Expected: 08/18/2023 (Approximate), Expires: 08/18/2024 Immunizations Immunization Date Immunization Notes Care Provider Angélica kwon 03-22-2012 tetanus and diphther ia toxoids, adsorbed, preservative free, for adult use (5 Lf of tetanus toxoid and 2 Lf of diphtheria toxoid) John Ashby Other [facility] Payers Date Payer Category Payer Unknown [id number] 2021 Blue Cross Blue Shield [id number] 2020 Medicare MEDICARE MEDICAR E PART B [id number] 2020-[place] [address] Medicare [id number] 2017 Unknown [id number] 1960 Unknown [id number] 2.16.840.1.586996.3.579.2. 647 1960 Unknown [id number] 2.16.840.1.559593.3.579.2. 647 1960 Unknown [id number] 2.16.840.1.904204.3.579.2. 593 1960 Unknown [id number] 2.16.840.1.944607.3.579.2. 593 1960 Unknown [id number] 2.16.840.1.994942.3.579.2. 593 1960 Unknown [id number] 2.16.840.1.989203.3.579.2. 593 1960 Unknown [id number] 2.16.840.1.158169.3.579.2. 593 1960 Unknown [id number] 2.16.840.1.624501.3.579.2. 593 1960 Unknown [id number] 2.16.840.1.263836.3.579.2. 593 1960 Unknown [id number] 2.16.840.1.883481.3.579.2. 593 1960 Unknown [id number] 2.16.840.1.498514.3.579.2. 593 1960 Unknown [id number] 2.16.840.1.350814.3.579.2. 593 1960 Unknown [id number] 2.16.840.1.961295.3.579.2. 593 1960 Unknown [id number] 2.16.840.1.652210.3.579.2. 593 1960 Unknown [id number] 2.16.840.1.505799.3.579.2. 593 1960 Unknown [id number] 2.16.840.1.593795.3.579.2. 593 1960 Unknown [id number] 2.16.840.1.614844.3.579.2. 593 1960 Unknown [id number] 2.16.840.1.443828.3.579.2. 593 1960 Unknown [id number] 2.16.840.1.127314.3.579.2. 593 1960 Unknown [id number] 2.16.840.1.003112.3.579.2. 1259 1960 Unknown [id number] 2.16.840.1.299804.3.579.2. 1259 1960 Unknown [id number] 2.16.840.1.152100.3.579.2. 1259 1960 Unknown [id number] 2.16.840.1.168781.3.579.2. 1259 1960 Unknown [id number] 2.16.840.1.208924.3.579.2. 1259 1960 Unknown [id number] 2.16.840.1.052688.3.579.2. 1259 1960 Unknown [id number] 2.16.840.1.393037.3.579.2. 1259 1960 Unknown [id number] 2.16.840.1.598869.3.579.2. 1259 1960 Unknown [id number] 2.16.840.1.623619.3.579.2. 1259 1960 Unknown [id number] 2.16.840.1.441166.3.579.2. 1259 1960 Unknown [id number] 2.16.840.1.085547.3.579.2. 1259 1960 Unknown [id number] 2.16.840.1.195752.3.579.2. 1259 1960 Unknown [id number] 2.16.840.1.679981.3.579.2. 1259 1960 Unknown [id number] 2.16.840.1.600644.3.579.2. 1259 1960 Unknown [id number] 2.16.840.1.990361.3.579.2. 727 1960 Unknown [id number] 2.16.840.1.457400.3.579.2. 727 1960 Unknown [id number] 2.16.840.1.277456.3.579.2. 727 1960 Unknown [id number] 2.16.840.1.940944.3.579.2. 727 1959 Medicare [id number] 1959 Self-pay 1959 Unknown [id number] 1959 Unknown [id number] Social History Date Type Detail Facility Unknown if ever smoked [facility] Other Start: 07-21-2023 End: 08-18-2023 Sex Assigned At [facility] Tobacco smoking status No Smokin g Status Entered [facility] Start: 07-06-2018 End: 05-24-2023 Tobacco smoking status NEIS Ex-smoker [facility] End: 07-11-1990 History of [...] Assigned At Female F [facility] Medical Equipment Procedure Code Equipment Code Equipment [...] FDA Start: 04-06-2023 SHOULDER TOTAL ARTHROPLASTY Anderson CAMPOS, Jordan A 04/06/23 Unknown Shoulder R FDA Start: 04-06-2023 SHOULDER TOTAL ARTHROPLASTY Anderson CAMPOS, Jordan A 04/06/23 Unknown Shoulder R FDA [...] 04-06-2023 Functional Status Date Assessment Result Facility 03-19-2024 Functional Status No [facility] 03-24-2023 Functional Status No [facility] Clinical Notes 10-22-2021 to 11-04-2023 Kathi Neumann - 08/18/2023 3:45 PM EST Note Date & Type Note Facility 11-04-2023 Note [facility] Subjective Radha Zaidi is a 63 [...] did well on diltiazem. Cardiac catheterization in 2012 showed normal coronary arteries and normal LV systolic function by ventriculography. Her echocardiogram in 2012 showed EF of 40%. Her follow up echocardiogram 11/11/2015 was normal. She is on treatment with lisinopril and metoprolol for chronic systolic heart failure with improved ejection fraction. In the past she was admitted to [facility] with pneumonia and empyema, [...] mouth if needed., Disp: , Rfl: HYDROcodone-acetaminophen (Fishtail) 5-325 mg tablet, TAKE 1 TABLET BY [...] HDL 74. Imagin (more content not included)... [facility] 08-18-2023 History of Present illness Narrative [...] She has been wearing her sling almost salad maker as instructed since her last visit in July. She states her hand has improved. She points to the anterior aspect of the shoulder as the location of her discomfort. SUBJECTIVE: MEDICATIONS: Current Outpatient Medications Medication Instructions aspirin 81 MG EC tablet 1 tablet, Oral, Daily buPROPion XL (Wellbutrin XL) 300 MG 24 hr tablet citalopram (CeleXA) 10 MG tablet HYDROcodone-acetaminophen (Fishtail) 5-325 MG tablet TAKE 1 TABLET BY [...] Jordan Yuan D.O. documented in this encounter [facility] 08-17-2023 Evaluation note Encounter Date Diagnosis [...] Symptoms tolerable, continue medical treatment f/u Rheumatology [facility] Other 12-19-2023 Evaluation note* Encounter Date Diagnosis [...] Jun, Immunosuppressed sta tus (ICD-10 - D84.9) [facility] Other 09-28-2023 Evaluation + Plan noteExtracted from: [...] Basic PRE Author:Hill Rai DO Date:04/06/23 Plan [place] [employer]hes[employer] (ASA) physical status classification: Class II. Anesthetic Preoperative Plan: Anesthesia General. Regional Inter[facility] block. [facility]09-28-2023 Hospital Discharge instructions Patient Education 04/07/2023 07:41:33 Iris Yuan - Shoulder Replacement (Custom) [place], [place] [facility] DISCHARGE INSTRUCTIONS: SHOULDER REPLACEMENT [...] persistent vomiting. Jordan Yuan, DO [facility] [address] [place] [address] Reviewed: Follow Up Care 03/09/2023 13:56:15 With:Jordan Yuan Address: [address] [place] [address] Business (1) When:04/19/2023 14:15:00 With:JOHN ASHBY Address: [address] [place] [address] Business (1) When: Unknown [facility]09-28-2023 NotePatient: RADHA ZAIDI Age: 62 years [...] 15 mg, 1 tab(s), Oral, Daily, 0 Refill(s)[facility]Result Comment: Electronically Signed By: Jordan Yuan DO\Date and Time Signed: 04/07/23 07:42 [id number]:127 [facility]09-16-2023 Evaluation note* Encounter Date Diagnosis Assessment Notes Treatment Notes Treatment Clinical Notes Mar, Major depressive disorder, single episode, 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 Suggested referral to [facility] Other 05-02-2023 Evaluation note* Encounter Date Diagnosis [...] normal BMI. Monitor BP while taking Adipex [facility] Other 03-30-2023 NoteCONSULTATION PROCEDURE DATE: 10/07/2022 PROCEDURE: [...] at least 80% reduction of pain symptoms.[facility] [place] [facility] [id number] NoteCONSULTATION CONSULTATION DATE: 10/07/2022 ADDENDUM: On examination of the right shoulder, the patient did have a positive right sided full can test, a positive Neida's test, Apley's test and cross body test. All four positive on examination date 10/07/2022.[facility] [place] [facility] [id number] NoteCONSULTATION CONSULTATION DATE: 10/07/2022 TO: John Ashby [...] activity modification, use of Zanaflex, Lyrica and Fishtail. RECOMMENDATIONS: I recommend proceeding with a right [...] right shoulder without contrast and physical therapy.[facility] [place] [facility] [id number] Evaluation note* Encounter Date Diagnosis Assessment Notes Treatment Notes Treatment Clinical Notes Aug, Anemia (ICD-10 - D64.9) [facility] Other 01-16-2023 Evaluation note* Encounter Date Diagnosis [...] Healthy diet, exercise w/o change in treatment [facility] Other [id number] NoteCONSULTATION PROCEDURE DATE: 07/09/2022 PREOPERATIVE DIAGNOSIS: Right [...] will be followed up in the office.[facility] [place] [facility] [id number] NoteCONSULTATION CONSULTATION DATE: 07/09/2022 HISTORY OF PRESENT [...] possible increase in dose. She also takes Fishtail 5/325 t.i.d. and Zanaflex 4 mg three [...] three months' time, unless otherwise indicated. [facility] [place] [facility] [id number] NoteCONSULTATION CONSULTATION DATE: 05/20/2022 HISTORY OF PRESENT [...] medications include Celexa, Lyrica 50 mg b.i.d., Fishtail 5/325 t.i.d. and Zanaflex. Patient is having [...] level of C3-4. We will refill her Fishtail at 5/325 t.i.d. Supportive home measures were discussed such as heat and a menthol heat rub, as well as vitamin compliance. The patient agrees to move forward with the plan, will be followed up in the clinic thereafter.[facility] [place] [facility] [id number] NoteCONSULTATION PROCEDURE DATE: 02/17/2022 PRE AND POSTOPERATIVE [...] will be followed up in the clinic.[facility] [place] [facility] [id number] NotePROCEDURE: XR SHOULDER RT 2V or > COMPARISON: None. HISTORY: Pain of right shoulder joint FINDINGS: BONES:No acute fracture or dislocation. Minimal degenerative changes. Cervical fusion hardware SOFT TISSUES:Negative. No visible soft tissue swelling. EFFUSION:None visible. OTHER: Negative. IMPRESSION: No acute abnormality Electronically authenticated by: VANDANA COLLINS Date: 2022-02-16 19:11[facility]07-26-2022 NoteCONSULTATION CONSULTATION DATE: 02/02/2022 CHIEF COMPLAINT: [...] aggravates the pain. The patient currently takes Fishtail 5/325 t.i.d., wellbutrin 150 mg, Lyrica 50 [...] point tenderness along the right bicipital tendon. Pillow Cleaner strength is maintained. IMPRESSION: Current working diagnosis [...] like to proceed. 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 Cold weather and bending bother her as well. Medications include Lyrica 75 mg t.i.d., which she has not been taking for the past two months; Celexa, Fishtail 5/325 t.i.d., Zanaflex and RINVOQ. She feels that her pain is managed well with her Fishtail, but is concerned about the neuropathic pain [...] in need of a refill for her Fishtail today, which we will give 5/325 t.i.d. [...] in three months' time unless otherwise indicated. [facility] Signed and Approved by: JACQUIE OLIVAS . 11/12/2021 16:27:00[facility] Future Appointments Appointment Date:04/06/2023 09:30:00 AM Scheduled Provider: Location:[facility] Future Appointments Appointment Date:04/06/2024 12:00:00 PM Scheduled Provider: Location:[facility] Appointment Type:Surgery [facility] Evaluation noteNo [employer] Other Evaluation note* Diagnosis Right shoulder pain, unspecified chronicity- Primary documented in this encounter [facility] Diagnosis Onset Date Resolution Status Hypertension acute Overweight acute PSVT (paroxysmal supraventricular tachycardia) [facility] Work Phone: Evaluation note* Diagnosis Onset Date Resolution Status Hypertension acute Overweight acute PSVT (paroxysmal supraventricular tachycardia) acute Heart failure with improved ejection fraction (HFimpEF ) acute [facility]ischemic [facility] Work Phone: History general Narrative - Reported* [...] Surgical History ORIF, proximal fibula Surgical History [facility] 2011 Surgical History Lumbar fusion Surgical History ACDF C4-6 05/30 Hospitalization History See Above [facility] Other History general Narrative - Reported* Type [...] Surgical History ORIF, proximal fibula Surgical History [facility] 2011 Surgical History Lumbar fusion Surgical History ACDF C4-6 05/30 Surgical History Right reverse total shoulder ar throplasty 03/2023 Hospitalization History See Above [facility] Other Hospital course Narrative No data available for this section [facility] instructions No data available for this section [facility] No data available for this section [facility] Summary Purpose Family History No Family History Records Found Relationship Condition Age at Onset Recorded Date/T roshni brother Malignant neoplasm Unknown father Diabetes mellitus Unknown Malignant neoplasm Unknown Not Specified Malignant neoplasm Unknown Diabetes mellitus Unknown natural son Heart disease Unknown sister Heart disease Unknown Relationship Condition Age at Onset Recorded Date/T roshni brother Malignant neoplasm Unknown father Diabetes mellitus Unknown Malignant neoplasm Unknown mother Malignant neoplasm Unknown Diabetes mellitus Unknown son Heart disease Unknown sister Heart disease [...] tachycardia) Chief Complaint 3 Month Check up low bp dizzy lighthead Reason for Visit Hypertension Overweight PSVT (paroxysmal supraventricular tachycardia) Heart failure with improved ejection fraction (HFimpEF) Nonischemic cardiomyopathy Additional Source Comments INFORMATION SOURCE (unrecogn ized section and content) DATE CREATED AUTHOR 12/29/2017 [facility] DATE CREATED AUTHOR AUTHOR'S ORGANIZ ATION 08/29/2018 [facility] DATE CREATED AUTHOR AUTHOR'S ORGANIZ ATION 05/13/2020 [facility] DATE CREATED AUTHOR AUTHOR'S ORGANIZ ATION 10/15/2022 [facility] DATE CREATED AUTHOR AUTHOR'S ORGANIZ ATION 11/07/2023 [facility] DATE CREATED AUTHOR AUTHOR'S ORGANIZ ATION 02/25/2024 [facility] EPIC DATE CREATED AUTHOR AUTHOR'S ORGANIZ ATION 03/20/2024 [facility] DATE CREATED AUTHOR AUTHOR'S ORGANIZ ATION 03/26/2024 [facility] REASON FOR VISIT (unrecogniz ed section and content) Reason Comments Follow-up R rev TSA 04/06/23 Patient Care team informatio n (unrecognized section and content) Team Status: Active Member Role Status Dates John Ashby DO Primary Care Provider Active Team Status: Inactive Member Role Status Dates John Ashby DO Primary Care Provide r, Attending Provider Active Start: December 28, 2023 End: December 28, 2023 [employer] Relationship Specialty Start Date End Date John Ashby MD [address] [facility] [place] [id number] PCP - General Internal Medicine 12/23/22 [employer] Relationship Specialty Start Date End Date John Ashby MD [address] [facility] [place] [id number] PCP - General Internal Medicine 12/23/22 Team [...] 2023 End: September 28, 2023 Team Status: Active Member Role Status Dates John Ashby DO Primary Care Provider Active Start: February 02, 2024 Yanick Florez MD Attending Provider Active St art: February 02, 2024 Team Status: Active Member Role Status Dates John Ashby DO Primary Care Provide r, Attending Provider Active Start: February 14, 2024 Team Status: Inactive Member Role Status Dates John Ashby DO Primary Care Provide r, Attending Provider Active Start: February 29, 2024 End: February 29, 2024 Goals (unrecognized section and content) Goals may [...] BE BASED ON THE PRIMARY CLINICAL RECORDS. [facility]. provides no warranty or guarantee of the accuracy or completeness of information in this document.
[2024-03-27 17:25] LABS: Basophils Percent Auto 0.7 % (0.2-2.0); Eosinophils Absolute Auto 0.1 10^3/uL (0.0-0.7); Hematocrit 30.8 % (36.0-48.0); Immature Granulocytes Abs Auto 0.02 10^3/uL (0.00-0.03); Immature Granulocytes Pct Auto 0.5 % (0.0-0.5); Lymphocytes Absolute Auto 1.9 10^3/uL (1.2-3.8); Lymphocytes Percent Auto 42.3 % (20.5-60.0); Mean Corpuscular HGB Conc 32.5 g/dL (29.9-35.2); Mean Corpuscular Hemoglobin 31.9 pg (26.7-34.0); Mean Corpuscular Volume 98.4 fL (81.0-99.0); Mean Platelet Volume 9.3 fL (9.5-13.5); Monocytes Absolute Auto 0.6 10^3/uL (0.3-0.8); Monocytes Percent Auto 12.7 % (1.7-12.0); Neutrophils Absolute Auto 1.8 10^3/uL (1.4-6.5); Neutrophils Percent Auto 41.8 % (43.0-75.0); Platelet Count 235 10^3/uL (150-450); Red Blood Count 3.13 10^6/uL (4.20-5.40); Red Cell Distribution Width 14.7 % (11.0-15.0); Reticulocyte Pct Auto 2.37 % (0.60-3.10); White Blood Count 4.4 10^3/uL (4.0-11.0)
[2024-03-29 04:08] LABS: Vitamin B12 172 pg/mL (232-1245)
== END 2024-03-27 16:58 | disposition home or self-care (01) ==
PROVIDERS: PCP Internal Medicine; Visit Provider Internal Medicine
DX: D64.9 Anemia, unspecified (principal)
CPT/HCPCS: 36415; 82607; 82746; 83921; 85025; 85045

== ENCOUNTER 2024-04-21 16:24 | Emergency (ER) | payer BC, MEDICARE, SELFPAY ==
[2024-04-21 16:30] VITALS: BP 138/94; PULSE 95; TEMP 37.1; O2SAT 97; BMI 22.5
--- OUTSIDE RECORDS SUMMARY | 2024-04-21 16:43 | XMS_ITS | CCD ---
Author Organization [facility] CliniSymd Care Team Providers Care Cyber [employer] Planner Name Role Phone BASIM, BARRY H. Unavailable Unavailable BASIM, BARRY H. Unavailable Unavailable BALL, JOHN E Unavailable Unavailable BASIM, BARRY H. Unavailable Unavailable BALL, JOHN E Unavailable Unavailable EBRAHEIM, MARYURI Attending Unavailable EBRAHEIM, MARYURI Admitting Unavailable BALL, JOHN Referring Unavailable BALL, JOHN Primary Care Unavailable EBRAHEIM, MARYURI Surgeon Unavailable [place] Procedure Practitioner Unavailab le [place] Procedure Practitioner Unavailab TASH Chery Surgeon Unavailable [...] NARENDALEKS Admitting Amy vailable LAKSHMIPATHY ., NICOLE Consulting [...] vailable SYMONE, DR LOPEZ Primary Care Unavailable BROWNVANDANA Consulting Unavailable LAKSHMIPATHY ., NICOLE Consulting Amy vailable JOHN ASHBY Primary Care Physician [phone] Cesia Artis Unavailable Unavailable John Ashby MD [...] A Referring Unavailable Kate Scruggs Unavailable Unavailable Jordan Yuan Referring Unavailable Anderson, Jordan Rogers Admitting Unavailable Anderson, Jordan Rogers Attending Unavailable Anderson, Jordan A Admitting Unavailable [...] Date of Onset Reaction(s) Facility (1 source) 92467,[id number]; Translations: [Unknown] Propensity to adverse reactions (disorder) 2 [facility] Repository (20 sources) Cephalexin Drug Allergy 8 GI intolerance [facility] Work Phone: (7 sources) patient allergy list reviewed by nurse or physicia Propensity to adverse reactions 4 Comment:Done miiCard Other Medications Current Medications Medication Drug Class(es) Dates Sig (Normalized) Sig (Original) acetaminophen 325 mg / HYDROcodone bitartrate 5 mg oral tablet (6 sources) Opioid Agonist Start: 03-19-2024 take 1 tablet by mouth every six hours acetaminophen-hyd rocodone 325 mg-5 mg oral tablet 1 tab(s), Oral, q6hr, Refill(s) 0, Pain Start Date: 03/19/24 Status: Ordered Start: 06-30-2023 take 1 tablet by anne th three times daily as needed HYDROcodone-acetaminophen ([place]) 5-325 MG tablet TAKE 1 TABLET BY MOUTH 3 TIMES A DAY NEEDED FOR PAIN*MUS LAST 30 DAYS 06/30/2023 Active acetaminophen 325 mg / oxyCODONE hydrochloride 5 mg oral tablet (9 sources) Opioid Agonist Start: 04-06-2023 Percocet 5 mg- 325 mg oral tablet See Instructions, 40 tab(s), Refill(s) 0, 1-2 tab(s) Oral q4hr, [id number], 160, cm, 03/25/23 6:16:00 EDT, Height/Length Dosing, [...] oral tablet (20 sources) Aminoketone Start: 09-22-2023 End: 03-20-2024 Bupropion Hcl Active 0 .ROUTE .COMPLEX 90 March 20, 2024 8:35am TAKE 1 TABLET DAILY IN THE MORNING Start: 03-26-2023 buPROPion XL ( Wellbutrin XL) 300 MG 24 hr tablet 03/26/2023 Active Start: 03-24-2023 take 1 tablet by anne [...] pain, # 60 cap(s), Refills(s) 0, Pharmacy: [facility][id number], 160, cm, 03/25/23 6:16:00 EDT, Height/Length Dosing, 73.5, kg, 03/25/23 6:16:00 EDT, Weight Dosing Start Date: 04/06/23 Status: Ordered cephalexin 500 mg oral capsule (1 source) Cephalosporin Antibacterial Start: 04-06-2023 End: 04-13-2023 take 1 capsule by mouth every eight hours Keflex 500 mg Cap 500 mg = 1 cap(s), Oral, q8hr, X 7 day(s), # 21 cap(s), Refills(s) 0, Pharmacy: [facility]/pharmacy #[id number], 160, cm, 03/25/23 6:16:00 EDT, Height/Length Dosing, 73.5, kg, 03/25/23 6:16:00 EDT, Weight Dosing Start Date: 04/06/23 Stop Date: 04/13/23 Status: Ordered citalopram 10 mg oral tablet (20 sources) Serotonin Reuptake Inhibitor Start: 01-26-2024 Citalopram Active 0 .ROUTE .COMPLEX 90 January 26, 2024 8:54am TAKE 1 TABLET DAILY Start: 08-17-2023 End: 01-26-2024 take 1 tablet by mouth once daily citalopram 10 mg Tab 10 mg = 1 tab(s), Oral, Daily, Refills(s) 0, Depression Start Date: 03/19/24 Status: Ordered Start: 06-30-2018 End: 09-27-2023 take 20 mg [...] constipation, # 20 cap(s), Refills(s) 0, Pharmacy: [facility]/pharmacy #[id number], 160, cm, 03/25/23 6:16:00 EDT, Height/Length [...] 1 tablet by mouth in the morning. 01/21/2023 Active 24 hr metoprolol succinate 100 [...] MG PO Daily September 27, 2023 12:00am pregabalin 150 mg oral capsule (15 sources) Start: 03-24-2023 pregabalin (Lyrica) 150 MG capsule 03/31/2023 Active Start: 06-30-2018 End: 09-27-2023 take 1 capsule [...] Start: 03-24-2023 take 1 tablet by anne in the morning, then take 3 tablets by mouth at bedtime Zanaflex 4 mg Tab See Instructions, 1 tab(s) Oral in AM 3 tabs at bedtime, Refills(s) 0 Start Date: 03/24/23 Status: Ordered Start: 06-30-2018 End: 09-27-2023 take 4 mg by mouth twice daily Tizanidine Discontinued 4 MG PO Twice daily June 30, 2018 1:00am September 27, 2023 2:54pm take 1 capsule by [facility] every six hours tiZANidine HCl [...] (Original) alendronic acid 70 mg oral tablet (6 sources) Bisphosphonate Start: 06-30-2018 End: 09-27-2023 take 1 tablet by mouth every week Alendronate (Fosamax) 70 mg Tablet Discontinued 70 MG PO every week June 30, 2018 1:00am September 27, 2023 2:54pm aspirin 81 mg delayed release oral tablet (11 sources) Platelet Aggregation Inhibitor, Nonsteroidal Anti-inflammatory Drug [...] hydrochloride 360 mg extended release oral tablet (6 sources) Calcium Channel Lisandra Start: 06-30-2018 End: 09-27-2023 take 360 mg by mouth once daily Diltiazem Hcl Discontinued 360 MG PO Daily June 30, 2018 1:00am September 27, 2023 2:50pm doxycycline hyclate 100 mg oral capsule (15 sources) Tetracycline-cl ass Drug Start: 09-27-2023 End: 09-28-2023 take 100 mg by mouth twice daily Doxycycline Hyclate Discontinued 100 MG PO Twice daily September 27, 2023 12:00am September 28, 2023 3:15pm Start: 06-28-2023 take 1 capsule by mo [facility] every twelve hours Doxycycline Hyclate 100 MG 1 capsule Orally Twice a day for 5 days Jun, Active Start: 07-06-2018 End: 09-27-2023 take 100 mg by mouth twice daily Doxycycline Hyclate Discontinued 100 MG PO Twice daily 10 July 06, 2018 1:00am September 27, 2023 2:50pm ibuprofen 800 mg oral tablet (6 sources) Nonsteroidal Anti-inflammatory Drug Start: 07-06-2018 End: 09-27-2023 take 800 mg by mouth three times daily Ibuprofen Discontinued 800 MG PO Three times daily 60 July 06, 2018 1:00am September 27, 2023 2:50pm phentermine hydrochloride 37.5 mg oral capsule (20 sources) Sympathomimetic Amine Anorectic Start: 09-02-2023 End: 03-25-2024 take 37.5 mg by mouth once daily [...] Active traZODone hydrochloride 100 mg oral tablet (6 sources) Serotonin Reuptake Inhibitor Start: 06-30-2018 End: [...] the morning and 2,000 mg before bedtime. 03/31/2023 Active take 2 tablets by mo [...] Bradycardia 03-24-2023 Episodic Congestive heart failure; nonhypertensive (20 sources) Chronic systolic heart failure; Translations: [Chronic systolic (congestive) heart failure] Onset: 09-05-2018 09-27-2023 Chronic Deficiency and other anemia (20 sources) Anemia; Translations: [Anemia, unspecified] 09-27-2023 Episodic Deficiency and other anemia (5 sources) Anemia, unspecified; Translations: [Anemia, unspecified] Onset: 09-17-2022 Episodic Disorders of lipid metabolism [...] monitoring] Episodic Other aftercare (1 source) Other senior care (current) drug therapy; Translations: [OTH HALF-WAY CURRENT DRUG THERAPY] Onset: 09-17-2022 Episodic Other [...] circulatory system] Episodic Other connective tissue disease (18 sources) Tear of right rotator cuff; Translations: [...] tuberculosis or sexually transmitted disease) (20 sources) Cardiomyopathy associated with another disorder; Translations: [...] codes; unclassified (2 sources) Decreased libido Episodic Residual codes; unclassified (2 sources) History of operative procedure on shoulder; Translations: [Other specified postprocedural states] 11-15-2023 Episodic Rheumatoid arthritis and related disease (20 [...] examination] Onset: 01-05-2011 Episodic Other circulatory disease (14 sources) Orthostatic hypotension; Translations: [Orthostatic hypotension] Onset: 05-29-2018 09-27-2023 Episodic Other circulatory disease (4 sources) Orthostatic hypotension; Translations: [Orthostatic hypotension] Onset: 05-29-2018 02-29-2024 Episodic Other connective tissue disease (8 sources) [...] Test Name Value Interpretation Reference Range Facility Basophils Auto (Bld) [#/Vol] on 03-27-2024 Basophils (Bld) [#/Vol] 0.0 10 3/uL 0.0-0.1 [facility] Basophils/100 WBC Auto (Bld) on 03-27-2024 Basophils/100 WBC (Bld) 0.7 % 0.2-2.0 [facility] Eosinophils/100 WBC Auto (Bl d)on 03-27-2024 Eosinophils/100 WBC (Bld) 2.0 % 0.9-7.0 [facility] Erythrocyte distribution wid th Auto (RBC) [Ratio]on 03-27-2024 Erythrocyte distribution width (RBC) [Ratio] 14.7 % 11.0-15.0 [facility] Hematocrit Auto (Bld) [Volum e fraction]on 03-27-2024 Hematocrit (Bld) [Volume fraction] 30.8 % Low 36.0-48.0 [facility] Hemoglobin [Mass/volume] in Bloodon 03-27-2024 Hemoglobin (Bld) [Mass/Vol] 10.0 g/dL Low 12.0-16.0 [facility] Laboratory - Chemistry and C hemistry - challengeon 03-27-2024 Cobalamin (Vitamin B12) [Mass/Vol] 172 pg/mL Abnormal 232-1245 [facility] Comment on above: Performed at: [place] [id number] Director: Lito Matamoros PhD, Phone: [phone] Laboratory - Hematology and Cell countson 03-27-2024 Immature granulocytes/100 WBC (Bld) 0.5 % 0.0-0.5 [facility] Leukocytes [#/volume] correc fito for nucleated erythrocytes in Blood by Automated counon 03-27-2024 WBC corrected for nucl RBC Auto (Bld) [#/Vol] 4.4 10 3/uL 4.0-11.0 [facility] Lymphocytes Auto (Bld) [#/Vo l]on 03-27-2024 Lymphocytes (Bld) [#/Vol] 1.9 10 3/uL 1.2-3.8 [facility] Lymphocytes/100 WBC Auto (Bl d)on 03-27-2024 Lymphocytes/100 WBC (Bld) 42.3 % 20.5-60.0 [facility] MCH Auto (RBC) [Entitic mass ]on 03-27-2024 MCH (RBC) [Entitic mass] 31.9 pg 26.7-34.0 [facility] MCHC Auto (RBC) [Mass/Vol]on 03-27-2024 MCHC (RBC) [Mass/Vol] 32.5 g/dL 29.9-35.2 [facility] MCV Auto (RBC) [Entitic vol] on 03-27-2024 MCV (RBC) [Entitic vol] 98.4 fL 81.0-99.0 [facility] Monocytes Auto (Bld) [#/Vol] on 03-27-2024 Monocytes (Bld) [#/Vol] 0.6 10 3/uL 0.3-0.8 [facility] Monocytes/100 WBC Auto (Bld) on 03-27-2024 Monocytes/100 WBC (Bld) 12.7 % High 1.7-12.0 [facility] Neutrophils Auto (Bld) [#/Vo l]on 03-27-2024 Neutrophils (Bld) [#/Vol] 1.8 10 3/uL 1.4-6.5 [facility] Neutrophils/100 WBC Auto (Bl d)on 03-27-2024 Neutrophils/100 WBC (Bld) 41.8 % Low 43.0-75.0 [facility] No Panel Informationon 03-27 Eosinophils # (Auto) 0.1 10 3/uL 0.0-0.7 [facility] Folate 14.00 ng/mL 8.60-58.90 [facility] Immature Granulocyte # (Auto) 0.02 10 3/uL 0.00-0.03 [facility] Platelet mean volume Auto (B ld) [Entitic vol]on 03-27-2024 Platelet mean volume (Bld) [Entitic vol] 9.3 fL Low 9.5-13.5 [facility] Platelets Auto (Bld) [#/Vol] on 03-27-2024 Platelets (Bld) [#/Vol] 235 10 3/uL 150-450 [facility] RBC Auto (Bld) [#/Vol]on RBC (Bld) [#/Vol] 3.13 10 6/uL Low 4.20-5.40 [facility] Reticulocytes/100 RBC Auto ( Bld)on 03-27-2024 Reticulocytes/100 RBC (Bld) 2.37 % 0.60-3.10 [facility] Serum or plasma methylmalona te measurement (moles/volume)on 03-27-2024 Methylmalonate [Moles/Vol] 195 nmol/L 0-378 [facility] Comment on above: This test was develo ped and its performance characteristicsdetermined by [employer]. It has not been cleared orapproved by the Food and Drug Administration.Performed at: [address] [id number] Director: Goldy Aparicio MD, Phone: [phone] XR Chest 2 Viewson 4 XR Chest 2 Views Exam Date/Time: 03/19/2024 [...] na DAP = na Normal [facility] BMPon 03-19-2024 Anion gap [Moles/Vol] 9 mmol/L Normal 6-16 [facility] Comment on above: Performed By: #### 2 [id number] #### [facility] [address] [place] [address] Calcium [Mass/Vol] 9.1 mg/dL Normal 8.9-11.1 [facility] Comment on above: Performed By: #### 2 [id number] #### [facility] [address] [place] [address] Chloride [Moles/Vol] 109 mmol/L Normal 101-111 [facility] Comment on above: Performed By: #### 2 [id number] #### [facility] [address] [place] [address] CO2 [Moles/Vol] 27 mmol/L Normal 21-31 [facility] Comment on above: Performed By: #### 2 [id number] #### [facility] [address] [place] [address] Creatinine [Mass/Vol] 1.1 mg/dL Normal 0.5-1.3 [facility] Comment on above: Performed By: #### 2 [id number] #### [facility] [address] [place] [address] Glucose [Mass/Vol] 85 mg/dL Normal 55-199 [facility] Comment on above: Performed By: #### 2 [id number] #### [facility] [address] [place] [address] Potassium [Moles/Vol] 3.8 mmol/L Normal 3.5-5.3 [facility] Comment on above: Performed By: #### 2 [id number] #### [facility] [address] [place] [address] Sodium [Moles/Vol] 141 mmol/L Normal 135-145 [facility] Comment on above: Performed By: #### 2 [id number] #### [facility] [address] [place] [address] Urea nitrogen [Mass/Vol] 17 mg/dL Normal 5-21 [facility] Comment on above: Performed By: #### 2 [id number] #### [facility] [address] [place] [address] Urea nitrogen/Creatinine [Mass ratio] 16 No Units Normal 10-20 [facility] Comment on above: Performed By: #### 2 [id number] #### [facility] [address] [place] [address] CBC w/ Auto Diffon 4 Basophils/100 WBC (Bld) 0.6 % Normal 0.0-2.0 [facility] Comment on above: Performed By: #### 2 [id number] #### [facility] [address] [place] [address] Basophils/Leukocyte s Auto (Bld) [Pure # fraction] 0.0 E9/L Normal 0.0-0.2 [facility] Comment on above: Performed By: #### 2 [id number] #### [facility] [address] [place] [address] Eosinophils (Bld) [#/Vol] 0.1 E9/L Normal 0.0-0.5 [facility] Comment on above: Performed By: #### 2 [id number] #### [facility] [address] [place] [address] Eosinophils/100 WBC (Bld) 1.6 % Normal 0.0-8.0 [facility] Comment on above: Performed By: #### 2 [id number] #### [facility] [address] [place] [address] Erythrocyte distribution width (RBC) [Ratio] 14.7 % High 10.9-14.2 [facility] Comment on above: Performed By: #### 2 [id number] #### [facility] [address] [place] [address] Hematocrit (Bld) [Volume fraction] 27.9 % Low 34.0-46.0 [facility] Comment on above: Performed By: #### 2 [id number] #### [facility] [address] [place] [address] Hemoglobin (Bld) [Mass/Vol] 9.8 g/dL Low 12.0-16.0 [facility] Comment on above: Performed By: #### 2 [id number] #### [facility] [address] [place] [address] Lymphocytes (Bld) [#/Vol] 1.1 E9/L Normal 1.0-4.0 [facility] Comment on above: Performed By: #### 2 [id number] #### [facility] [address] [place] [address] Lymphocytes/100 WBC (Bld) 28.9 % Normal 14.0-50.0 [facility] Comment on above: Performed By: #### 2 [id number] #### [facility] [address] [place] [address] MCH (RBC) [Entitic mass] 33.8 pg Normal 27.0-34.0 [facility] Comment on above: Performed By: #### 2 [id number] #### [facility] [address] [place] [address] MCHC (RBC) [Mass/Vol] 35.1 g/dL Normal 31.4-36.0 [facility] Comment on above: Performed By: #### 2 [id number] #### [facility] [address] [place] [address] MCV (RBC) [Entitic vol] 96.2 fL Normal 80.0-100.0 [facility] Comment on above: Performed By: #### 2 [id number] #### [facility] [address] [place] [address] Monocytes (Bld) [#/Vol] 0.6 E9/L Normal 0.2-1.0 [facility] Comment on above: Performed By: #### 2 [id number] #### [facility] [address] [place] [address] Neutrophils (Bld) [#/Vol] 2.0 E9/L Normal 2.0-7.5 [facility] Comment on above: Performed By: #### 2 [id number] #### [facility] [address] [place] [address] Neutrophils/100 WBC (Bld) 52.8 % Normal 36.0-75.0 [facility] Comment on above: Performed By: #### 2 [id number] #### [facility] [address] [place] [address] Platelet 211.0 E9/L Normal 150.0-500.0 [facility] Comment on above: Performed By: #### 2 [id number] #### [facility] [address] [place] [address] Platelet mean volume (Bld) [Entitic vol] 7.0 fL Normal 6.4-10.8 [facility] Comment on above: Performed By: #### 2 [id number] #### [facility] [address] [place] [address] RBC (Bld) [#/Vol] 2.9 E12/L Low 4.3-5.9 [facility] Comment on above: Performed By: #### 2 [id number] #### [facility] [address] [place] [address] WBC corrected for nucl RBC Auto (Bld) [#/Vol] 3.8 E9/L Low 4.0-11.0 [facility] Comment on above: Result Comment: Mae pheral smear review performed. Performed By: #### 2 [id number] #### [facility] [address] [place] [address] CHEMISTRYOrdered By: SYSTEM SYSTEM on 03-19-2024 Anion gap [Moles/Vol] 9 mmol/L Normal 6 - 16 mEq/L [facility] Calcium [Mass/Vol] 9.1 mg/dL Normal 8.9 - 11. 1 mg/dL [facility] Chloride [Moles/Vol] 109 mmol/L Normal 101 - 111 mmol/L [facility] CO2 [Moles/Vol] 27 mmol/L Normal 21 - 31 mmol/L [facility] Creatinine [Mass/Vol] 1.1 mg/dL Normal 0.5 - 1.3 mg/dL [facility] eGFR 56 mL/min/1.73 m2 Low >=59mL/min / 1.73 m2 [facility] Glucose [Mass/Vol] 85 mg/dL [...] Normal 0.0 - 2.0 % [facility] Heme Basophils/Leukocyte s Auto (Bld) [Pure # fraction] 0.0 [...] 03-19-2024 eGFR 56 mL/min/1.73 m2 Low >=59 [facility] Comment on above: Order Comment: Order added by Discern Expert. Performed By: #### 1 [id number] #### [facility] [address] [place] [address] Basophils Auto (Bld) [#/Vol] on 02-14-2024 Basophils (Bld) [#/Vol] 0.0 10 3/uL 0.0-0.1 [facility] Basophils/100 WBC Auto (Bld) on 02-14-2024 Basophils/100 WBC (Bld) 0.8 % 0.2-2.0 [facility] Eosinophils/100 WBC Auto (Bl d)on 02-14-2024 Eosinophils/100 WBC (Bld) 1.5 % 0.9-7.0 [facility] Erythrocyte distribution wid th Auto (RBC) [Ratio]on 02-14-2024 Erythrocyte distribution width (RBC) [Ratio] 15.1 % High 11.0-15.0 [facility] Hematocrit Auto (Bld) [Volum e fraction]on 02-14-2024 Hematocrit (Bld) [Volume fraction] 35.4 % Low 36.0-48.0 [facility] Hemoglobin [Mass/volume] in Bloodon 02-14-2024 Hemoglobin (Bld) [Mass/Vol] 11.0 g/dL Low 12.0-16.0 [facility] Iron binding capacity [Mass/ volume] in Serum or Plasmaon 02-14-2024 Iron binding capacity [Mass/Vol] 303.0 ug/dL 250.0-450.0 [facility] Iron saturation [Mass Fracti on] in Serum or Plasmaon 02-14-2024 Iron saturation [Mass fraction] 81.2 % [facility] Laboratory - Chemistry and C hemistry - challengeon 02-14-2024 Cobalamin (Vitamin B12) [Mass/Vol] 225.0 pg/mL 193.0-986.0 [facility] Ferritin [Mass/Vol] 338.0 ng/mL High 8.0-252.0 [facility] Iron [Mass/Vol] 246.0 ug/dL High 50.0-170.0 [facility] Laboratory - Hematology and Cell countson 02-14-2024 Immature granulocytes/100 WBC (Bld) 0.8 % High 0.0-0.5 [facility] Leukocytes [#/volume] correc fito for nucleated erythrocytes in Blood by Automated counon 02-14-2024 WBC corrected for nucl RBC Auto (Bld) [#/Vol] 4.7 10 3/uL 4.0-11.0 [facility] Lymphocytes Auto (Bld) [#/Vo l]on 02-14-2024 Lymphocytes (Bld) [#/Vol] 2.3 10 3/uL 1.2-3.8 [facility] Lymphocytes/100 WBC Auto (Bl d)on 02-14-2024 Lymphocytes/100 WBC (Bld) 48.7 % 20.5-60.0 [facility] MCH Auto (RBC) [Entitic mass ]on 02-14-2024 MCH (RBC) [Entitic mass] 31.9 pg 26.7-34.0 [facility] MCHC Auto (RBC) [Mass/Vol]on 02-14-2024 MCHC (RBC) [Mass/Vol] 31.1 g/dL 29.9-35.2 [facility] MCV Auto (RBC) [Entitic vol] on 02-14-2024 MCV (RBC) [Entitic vol] 102.6 fL High 81.0-99.0 [facility] Monocytes Auto (Bld) [#/Vol] on 02-14-2024 Monocytes (Bld) [#/Vol] 0.6 10 3/uL 0.3-0.8 [facility] Monocytes/100 WBC Auto (Bld) on 02-14-2024 Monocytes/100 WBC (Bld) 13.3 % High 1.7-12.0 [facility] Neutrophils Auto (Bld) [#/Vo l]on 02-14-2024 Neutrophils (Bld) [#/Vol] 1.7 10 3/uL 1.4-6.5 [facility] Neutrophils/100 WBC Auto (Bl d)on 02-14-2024 Neutrophils/100 WBC (Bld) 34.9 % Low 43.0-75.0 [facility] No Panel Informationon 02-13 Eosinophils # (Auto) 0.1 10 3/uL 0.0-0.7 [facility] Immature Granulocyte # (Auto) 0.04 10 3/uL High 0.00-0.03 [facility] Folate 9.40 ng/mL 8.60-58.90 [facility] Platelet mean volume Auto (B ld) [Entitic vol]on 02-14-2024 Platelet mean volume (Bld) [Entitic vol] 9.1 fL Low 9.5-13.5 [facility] Platelets Auto (Bld) [#/Vol] on 02-14-2024 Platelets (Bld) [#/Vol] 197 10 3/uL 150-450 [facility] RBC Auto (Bld) [#/Vol]on RBC (Bld) [#/Vol] 3.45 10 6/uL Low 4.20-5.40 [facility] Basophils Auto (Bld) [#/Vol] on 02-02-2024 Basophils (Bld) [#/Vol] 0.0 10 3/uL 0.0-0.1 [facility] Basophils/100 WBC Auto (Bld) on 02-02-2024 Basophils/100 WBC (Bld) 0.8 % 0.2-2.0 [facility] Eosinophils/100 WBC Auto (Bl d)on 02-02-2024 Eosinophils/100 WBC (Bld) 2.1 % 0.9-7.0 [facility] Erythrocyte distribution wid th Auto (RBC) [Ratio]on 02-02-2024 Erythrocyte distribution width (RBC) [Ratio] 14.2 % 11.0-15.0 [facility] Estimated glomerular filtrat ion rate (GFR) non- Americanon 02-02-2024 GFR/1.73 sq M.predicted among non-blacks MDRD (S/P/Bld) [Vol rate/Area] 51 mL/min/{1.73_m2} Low >=60 [facility] Globulin Calc (S) [Mass/Vol] on 02-02-2024 Globulin (S) [Mass/Vol] 2.9 g/dL [facility] Hematocrit Auto (Bld) [Volum e fraction]on 02-02-2024 Hematocrit (Bld) [Volume fraction] 31.9 % Low 36.0-48.0 [facility] Hemoglobin [Mass/volume] in Bloodon 02-02-2024 Hemoglobin (Bld) [Mass/Vol] 10.2 g/dL Low 12.0-16.0 [facility] Laboratory - Chemistry and C hemistry - challengeon 02-02-2024 Albumin [Mass/Vol] 3.9 g/dL 3.4-5.0 [facility] ALP [Catalytic activity/Vol] 48 U/L 46-116 [facility] ALT [Catalytic activity/Vol] 20 U/L 14-59 [facility] AST [Catalytic activity/Vol] 23 U/L 15-37 [facility] Bilirubin [Mass/Vol] 0.5 mg/dL 0.2-1.0 [facility] Calcium [Mass/Vol] 9.1 mg/dL 8.5-10.1 [facility] Chloride [Moles/Vol] 108 mmol/L High 98-107 [facility] CO2 [Moles/Vol] 24.8 mmol/L 21.0-32.0 [facility] Creatinine [Mass/Vol] 1.09 mg/dL High 0.55-1.02 [facility] GFR/1.73 sq M.predicted MDRD (S/P/Bld) [Vol rate/Area] mL/min/{1.73_m2} >=60 [facility] Glucose [Mass/Vol] 87 mg/dL 74-106 [facility] Potassium [Moles/Vol] 3.9 mmol/L 3.5-5.1 [facility] Protein [Mass/Vol] 6.8 g/dL 6.4-8.2 [facility] Sodium [Moles/Vol] 144 mmol/L 136-145 [facility] Urea nitrogen [Mass/Vol] 17.0 mg/dL 7.0-18.0 [facility] Urea nitrogen/Creatinine [Mass ratio] 15.6 mg/mg [facility] Laboratory - Hematology and Cell countson 02-02-2024 ESR (Bld) [Velocity] 12 mm/h <=30 [facility] Immature granulocytes/100 WBC (Bld) 0.5 % 0.0-0.5 [facility] Leukocytes [#/volume] correc fito for nucleated erythrocytes in Blood by Automated counon 02-02-2024 WBC corrected for nucl RBC Auto (Bld) [#/Vol] 3.8 10 3/uL Low 4.0-11.0 [facility] Lymphocytes Auto (Bld) [#/Vo l]on 02-02-2024 Lymphocytes (Bld) [#/Vol] 1.5 10 3/uL 1.2-3.8 [facility] Lymphocytes/100 WBC Auto (Bl d)on 02-02-2024 Lymphocytes/100 WBC (Bld) 40.3 % 20.5-60.0 [facility] MCH Auto (RBC) [Entitic mass ]on 02-02-2024 MCH (RBC) [Entitic mass] 31.7 pg 26.7-34.0 [facility] MCHC Auto (RBC) [Mass/Vol]on 02-02-2024 MCHC (RBC) [Mass/Vol] 32.0 g/dL 29.9-35.2 [facility] MCV Auto (RBC) [Entitic vol] on 02-02-2024 MCV (RBC) [Entitic vol] 99.1 fL High 81.0-99.0 [facility] Monocytes Auto (Bld) [#/Vol] on 02-02-2024 Monocytes (Bld) [#/Vol] 0.6 10 3/uL 0.3-0.8 [facility] Monocytes/100 WBC Auto (Bld) on 02-02-2024 Monocytes/100 WBC (Bld) 16.1 % High 1.7-12.0 [facility] Neutrophils Auto (Bld) [#/Vo l]on 02-02-2024 Neutrophils (Bld) [#/Vol] 1.5 10 3/uL 1.4-6.5 [facility] Neutrophils/100 WBC Auto (Bl d)on 02-02-2024 Neutrophils/100 WBC (Bld) 40.2 % Low 43.0-75.0 [facility] No Panel Informationon 02-01 Eosinophils # (Auto) 0.1 10 3/uL 0.0-0.7 [facility] Immature Granulocyte # (Auto) 0.02 10 3/uL 0.00-0.03 [facility] Platelet mean volume Auto (B ld) [Entitic vol]on 02-02-2024 Platelet mean volume (Bld) [Entitic vol] 9.3 fL Low 9.5-13.5 [facility] Platelets Auto (Bld) [#/Vol] on 02-02-2024 Platelets (Bld) [#/Vol] 236 10 3/uL 150-450 [facility] RBC Auto (Bld) [#/Vol]on RBC (Bld) [#/Vol] 3.22 10 6/uL Low 4.20-5.40 [facility] Serum or plasma albumin/glob ulin mass ratioon 02-02-2024 Albumin/Globulin [Mass ratio] 1.3 {ratio} [facility] Serum or plasma anion gap de terminationon 02-02-2024 Anion gap [Moles/Vol] 15.1 mmol/L [facility] XR Shoulder - right 2 Viewso n 11-25-2023 Imaging Result: 4 views right shoulder, Grashey/Zanca/outlet/axilla ry, taken today and saved to the permanent medical record. Prosthesis is unchanged in position and alignment. Fracture at the base of the acromion unchanged in appearance. [facility] XR Shoulder - right 2 Viewso n 11-15-2023 Radiology Study observation (narrative) [facility] Office Visiton 11-04-2023 Follow-up visit [id number] Alba Zaidi 1960 F Date Provider Department Center 11/04/2023 [facility] Family History Family history unknown: Yes Level of Service:30010 [place] OFFICE/OUTPATIENT ESTABLISHED MOD MDM 30 MIN Reason for Visit and Comments: Follow-up [715847] - 2 year Patient has been taking metoprolol 1 tablet QD Normal [facility] CT Upper Extremity w/o Contr ast [place] 02-29-2024 CT Upper Extremity w/o Contrast Right Exam [...] MD Transcribed by: DANISHA Technologist: ARNULFO Shah [facility] Lab Miscellaneous-LCon Lab Miscellaneous COMMENT Invalid Interpretation Code [facility] Comment on above: Result Comment: Test Ordered: [id number] Interleukin-6, Serum Interleukin-6, Serum <2.5 pg/mL CB [...] endotracheal intubation or mechanical ventilation. Performed at: [address] [id number] PhD Saturnino Morse Performed By: #### 1 [id number] ####[facility] [address] [place] [address] CBC w/ Auto Diffon 4 Basophil Absolute 0.0 E9/L Normal 0.0-0.2 [facility] Comment on above: Performed By: #### 2 141944, 6120198, [id number] #### [facility] Laboratory [address] [place] [address] Basophils/100 WBC (Bld) 0.4 % Normal 0.0-2.0 [facility] Comment on above: Performed By: #### 2 895904, 3455845, [id number] #### [facility] Laboratory [address] [place] [address] Eos Absolute 0.0 E9/L Normal 0.0-0.5 [facility] Comment on above: Performed By: #### 2 357033, 5598592, 66526465 #### [facility] [address] [place] [address] Eosinophils/100 WBC (Bld) 0.2 % Normal 0.0-8.0 [facility] Comment on above: Performed By: #### 2 260285, 0244877, 08111547 #### [facility] [address] [place] [address] Erythrocyte distribution width (RBC) [Ratio] 14.3 % High 10.9-14.2 [facility] Comment on above: Performed By: #### 2 338086, 9595459, 11431631 #### [facility] [address] [place] [address] Hematocrit (Bld) [Volume fraction] 40.0 % Normal 34.0-46.0 [facility] Comment on above: Performed By: #### 2 314948, 2207537, 01375826 #### [facility] [address] [place] [address] Hemoglobin (Bld) [Mass/Vol] 12.7 g/dL Normal 12.0-16.0 [facility] Comment on above: Performed By: #### 2 086998, 6176610, 47216562 #### [facility] [address] [place] [address] Lymph Absolute 0.9 E9/L Low 1.0-4.0 [facility] Comment on above: Performed By: #### 2 674548, 0390900, 75724494 #### [facility] [address] [place] [address] Lymphocytes/100 WBC (Bld) 25.2 % Normal 14.0-50.0 [facility] Comment on above: Performed By: #### 2 125180, 6975777, 76935028 #### [facility] [address] [place] [address] MCH (RBC) [Entitic mass] 30.6 pg Normal 27.0-34.0 [facility] Comment on above: Performed By: #### 2 250164, 6064209, 08754038 #### [facility] [address] [place] [address] MCHC (RBC) [Mass/Vol] 31.7 g/dL Normal 31.4-36.0 [facility] Comment on above: Performed By: #### 2 668478, 7075912, 10718264 #### [facility] [address] [place] [address] MCV (RBC) [Entitic vol] 96.5 fL Normal 80.0-100.0 [facility] Comment on above: Performed By: #### 2 185814, 4364124, 22292315 #### [facility] [address] [place] [address] [place] Absolute 0.3 E9/L Normal 0.2-1.0 [facility] Comment on above: Performed By: #### 2 984558, 0303861, 43877980 #### [facility] [address] [place] [address] Monocytes/100 WBC (Bld) 7.3 % Normal 4.0-14.0 [facility] Comment on above: Performed By: #### 2 867641, 1606975, 71945714 #### [facility] [address] [place] [address] Neutro Absolute 2.3 E9/L Normal 2.0-7.5 [facility] Comment on above: Performed By: #### 2 099454, 0851356, 29832579 #### [facility] [address] [place] [address] Neutro Auto 66.9 % Normal 36.0-75.0 [facility] Comment on above: Performed By: #### 2 319951, 5270105, 40733957 #### [facility] [address] [place] [address] Platelet 257.0 E9/L Normal 150.0-500.0 [facility] Comment on above: Performed By: #### 2 899446, 1551587, 64747148 #### [facility] [address] [place] [address] Platelet mean volume (Bld) [Entitic vol] 7.4 fL Normal 6.4-10.8 [facility] Comment on above: Performed By: #### 2 858179, 3490654, 18648644 #### [facility] [address] [place] [address] RBC 4.1 E12/L Low 4.3-5.9 [facility] Comment on above: Performed By: #### 2 944522, 6807408, 90069227 #### [facility] [address] [place] [address] WBC 3.4 E9/L Low 4.0-11.0 [facility] Comment on above: Performed By: #### 2 895391, 8388780, 49005420 #### [facility] [address] [place] [id number] CHEMISTRYOrdered By: SYSTEM SYSTEM on 09-06-2023 CRP mg/dL Normal <=1.9mg/dL Remisol Chem CRPon 09-06-2023 CRP [Mass/Vol] mg/L Normal <=1.9 [facility] Comment on above: Performed By: #### 2 492388, 9802985, 30710213 #### [facility] [address] [id number] Consent for Treatmenton 08-12 Consent for Treatment [id number]#[id number] Normal [facility] HEMATOLOGYOrdered By: SYSTEM SYSTEM on 09-06-2023 [...] Normal 80.0 - 100.0 fL Remisol Heme [place] Absolute 0.3 E9/L Normal 0.2 - 1.0 [...] 14 mm/h Normal 0 - 34 mm/hr [facility] HemeAutoSS Lab Miscellaneous-LCon 09-06 Test Code 472450 Invalid Interpretation Code [facility] Comment on above: Performed By: #### 1 [id number] ####[facility] [address] [place] [address] Test Name interleukin 6 Invalid Interpretation Code [facility] Comment on above: Performed By: #### 1 [id number] ####[address] [place] [address] Physician Orderon 09-06-2023 Physician Order [id number]#[id number] Normal [facility] Reference Laboratory Testing Ordered By: Jojo Gonsales on 09-06-2023 Test Code 185711 1 Invalid Interpretation Code [facility] SendOutsSS Test Name interleukin 6 Invalid Interpretation Code [facility] SendOutsSS Sed Rate Automatedon 024 ESR (Bld) [Velocity] 14 mm/h Normal 0-34 [facility] Comment on above: Performed By: #### 2 140036, 7205916, 92401068 #### [facility] Laboratory [address] [place] [address] Physician Orderon 08-31-2023 Physician Order [id number]#1.00TIFF Normal [facility] Basophils Auto (Bld) [#/Vol] on 08-30-2023 Basophils (Bld) [#/Vol] 0.0 10 3/uL 0.0-0.1 [facility] Basophils/100 WBC Auto (Bld) on 08-30-2023 Basophils/100 WBC (Bld) 0.8 % 0.2-2.0 [facility] Cholesterol in LDL Calc [Mas s/Vol]on 08-30-2023 Cholesterol in LDL [Mass/Vol] 152.0 mg/dL [facility] Comment on above: <100 mg/dl [id number] 0-129 mg/dl NEAR OR ABOVE [id number] mg/dl BORDERLINE [id number] mg/dl HIGH>190 mg/dl VERY HIGH Cholesterol in VLDL Calc [Ma ss/Vol]on 08-30-2023 Cholesterol in VLDL [Mass/Vol] 20.2 mg/dL [facility] Eosinophils/100 WBC Auto (Bl d)on 08-30-2023 Eosinophils/100 WBC (Bld) 4.2 % 0.9-7.0 [facility] Erythrocyte distribution wid th Auto (RBC) [Ratio]on 08-30-2023 Erythrocyte distribution width (RBC) [Ratio] 13.4 % 11.0-15.0 [facility] Estimated glomerular filtrat ion rate (GFR) non- Americanon 08-30-2023 GFR/1.73 sq M.predicted among non-blacks MDRD (S/P/Bld) [Vol rate/Area] 59 mL/min/{1.73_m2} >=60 [facility] Globulin Calc (S) [Mass/Vol] on 08-30-2023 Globulin (S) [Mass/Vol] 3.4 g/dL [facility] Hematocrit Auto (Bld) [Volum e fraction]on 08-30-2023 Hematocrit (Bld) [Volume fraction] 39.5 % 36.0-48.0 [facility] Hemoglobin [Mass/volume] in Bloodon 08-30-2023 Hemoglobin (Bld) [Mass/Vol] 12.5 g/dL 12.0-16.0 [facility] Laboratory - Chemistry and C hemistry - challengeon 08-30-2023 Albumin [Mass/Vol] 3.7 g/dL 3.4-5.0 [facility] ALP [Catalytic activity/Vol] 45 U/L 46-116 [facility] ALT [Catalytic activity/Vol] 23 U/L 14-59 [facility] AST [Catalytic activity/Vol] 21 U/L 15-37 [facility] Bilirubin [Mass/Vol] 0.4 mg/dL 0.2-1.0 [facility] Calcium [Mass/Vol] 9.0 mg/dL 8.5-10.1 [facility] Chloride [Moles/Vol] 106 mmol/L 98-107 [facility] Cholesterol [Mass/Vol] 246 mg/dL <=200 [facility] Cholesterol in HDL [Mass/Vol] 74 mg/dL 40-60 [facility] Comment on above: > or =60 mg/dl - LOW CARDIOVASCULAR RISK<40 mg/dl - HIGH CARDIOVASCULAR RISK CO2 [Moles/Vol] 25.5 mmol/L 21.0-32.0 [facility] Creatinine [Mass/Vol] 0.96 mg/dL 0.55-1.02 [facility] GFR/1.73 sq M.predicted MDRD (S/P/Bld) [Vol rate/Area] mL/min/{1.73_m2} >=60 [facility] Glucose [Mass/Vol] 86 mg/dL 74-106 [facility] Potassium [Moles/Vol] 3.8 mmol/L 3.5-5.1 [facility] Protein [Mass/Vol] 7.1 g/dL 6.4-8.2 [facility] Sodium [Moles/Vol] 142 mmol/L 136-145 [facility] Triglyceride [Mass/Vol] 101 mg/dL <=150 [facility] TSH Qn 1.531 m[IU]/L 0.358-3.740 [facility] Urea nitrogen [Mass/Vol] 20.0 mg/dL 7.0-18.0 [facility] Urea nitrogen/Creatinine [Mass ratio] 20.8 mg/mg [facility] Laboratory - Hematology and Cell countson 08-30-2023 ESR (Bld) [Velocity] 16 mm/h <=30 [facility] Immature granulocytes/100 WBC (Bld) 0.3 % 0.0-0.5 [facility] Leukocytes [#/volume] correc fito for nucleated erythrocytes in Blood by Automated counon 08-30-2023 WBC corrected for nucl RBC Auto (Bld) [#/Vol] 3.8 10 3/uL 4.0-11.0 [facility] Lymphocytes Auto (Bld) [#/Vo l]on 08-30-2023 Lymphocytes (Bld) [#/Vol] 1.7 10 3/uL 1.2-3.8 [facility] Lymphocytes/100 WBC Auto (Bl d)on 08-30-2023 Lymphocytes/100 WBC (Bld) 44.8 % 20.5-60.0 [facility] MCH Auto (RBC) [Entitic mass ]on 08-30-2023 MCH (RBC) [Entitic mass] 31.1 pg 26.7-34.0 [facility] MCHC Auto (RBC) [Mass/Vol]on 08-30-2023 MCHC (RBC) [Mass/Vol] 31.6 g/dL 29.9-35.2 [facility] MCV Auto (RBC) [Entitic vol] on 08-30-2023 MCV (RBC) [Entitic vol] 98.3 fL 81.0-99.0 [facility] Monocytes Auto (Bld) [#/Vol] on 08-30-2023 Monocytes (Bld) [#/Vol] 0.5 10 3/uL 0.3-0.8 [facility] Monocytes/100 WBC Auto (Bld) on 08-30-2023 Monocytes/100 WBC (Bld) 14.1 % 1.7-12.0 [facility] Neutrophils Auto (Bld) [#/Vo l]on 08-30-2023 Neutrophils (Bld) [#/Vol] 1.4 10 3/uL 1.4-6.5 [facility] Neutrophils/100 WBC Auto (Bl d)on 08-30-2023 Neutrophils/100 WBC (Bld) 35.8 % 43.0-75.0 [facility] No Panel Informationon 08-30 Eosinophils # (Auto) 0.2 10 3/uL 0.0-0.7 [facility] Immature Granulocyte # (Auto) 0.01 10 3/uL 0.00-0.03 [facility] Platelet mean volume Auto (B ld) [Entitic vol]on 08-30-2023 Platelet mean volume (Bld) [Entitic vol] 9.1 fL 9.5-13.5 [facility] Platelets Auto (Bld) [#/Vol] on 08-30-2023 Platelets (Bld) [#/Vol] 181 10 3/uL 150-450 [facility] RBC Auto (Bld) [#/Vol]on RBC (Bld) [#/Vol] 4.02 10 6/uL 4.20-5.40 [facility] Serum or plasma albumin/glob ulin mass ratioon 08-30-2023 Albumin/Globulin [Mass ratio] 1.1 {ratio} [facility] Serum or plasma anion gap de terminationon 08-30-2023 Anion gap [Moles/Vol] 14.3 mmol/L [facility] Serum or plasma total choles terol/high density lipoprotein (HDL) cholesterol mass albina 08-30-2023 Cholesterol.total/C holesterol in HDL [Mass ratio] 3.3 {ratio} [facility] Comment on above: 3.3 - 4.4 LOW RISK4. 4 - 7.1 AVERAGE RISK7.1 - 11.0 MODERATE RISK>11.0 [facility] XR Shoulder - right 2 Viewso n 02-09-2024 Imaging Result: Two views of the right shoulder; Grashey and axillary were taken today in the office are reviewed, and saved to the permanent medical record. The prosthesis is unchanged in position and alignment. There is no prosthetic loosening or failure. No scapular notching. The scapular spine appears to be intact. No obvious fractures at the coracoid process. [facility] XR Shoulder - right 2 Viewso n 08-18-2023 Radiology Study observation (narrative) [facility] IntraOperative Documentson 1 IntraOperative Documents [id number]:127 Normal [facility] Auto Diffon 04-07-2023 Basophils/100 WBC (Bld) 0.2 % Normal 0.0-2.0 [facility] Comment on above: Order Comment: Order Added by Discern Expert. Performed By: #### 2 186716, 0356735, 0098277, 0474568, 23295527, 1864636 #### [facility] Laboratory [address] [place] [address] Basophils/Leukocyte s Auto (Bld) [Pure # fraction] 0.0 E9/L Normal 0.0-0.2 [facility] Comment on above: Order Comment: Order Added by Discern Expert. Performed By: #### 2 684886, 5490750, 0588515, 8351212, 25113174, 3251182 #### [facility] [address] [place] [address] Eosinophils/100 WBC (Bld) 0.0 % Normal 0.0-8.0 [facility] Comment on above: Order Comment: Order Added by Discern Expert. Performed By: #### 2 723450, 7902376, 5557046, 6484576, 74311147, 2036267 #### [facility] [address] [place] [address] Eosinophils/Leukocy elli Auto (Bld) [Pure # fraction] 0.0 E9/L Normal 0.0-0.5 [facility] Comment on above: Order Comment: Order Added by Discern Expert. Performed By: #### 2 714523, 1525278, 6915989, 1873651, 32910925, 2555674 #### [facility] [address] [place] [address] Lymphocytes/100 WBC (Bld) 7.9 % Low 14.0-50.0 [facility] Comment on above: Order Comment: Order Added by Discern Expert. Performed By: #### 2 360958, 8681114, 7595319, 5665990, 31856359, 3298056 #### [facility] [address] [place] [address] Lymphocytes/Leukocy elli Auto (Bld) [Pure # fraction] 0.8 E9/L Low 1.0-4.0 [facility] Comment on above: Order Comment: Order Added by Discern Expert. Performed By: #### 2 977920, 0429572, 7514815, 3904715, 59788142, 5247444 #### [facility] [address] [place] [address] Monocytes/100 WBC (Bld) 14.0 % Normal 4.0-14.0 [facility] Comment on above: Order Comment: Order Added by Discern Expert. Performed By: #### 2 746928, 2424892, 9058896, 7316122, 62669030, 2316163 #### [facility] [address] [place] [address] Monocytes/Leukocyte s Auto (Bld) [Pure # fraction] 1.3 E9/L High 0.2-1.0 [facility] Comment on above: Order Comment: Order Added by Discern Expert. Performed By: #### 2 057422, 4644861, 4605404, 4498547, 84868912, 4723831 #### [facility] [address] [place] [address] Neutrophils/100 WBC (Bld) 77.9 % High 36.0-75.0 [facility] Comment on above: Order Comment: Order Added by Discern Expert. Performed By: #### 2 840790, 0017860, 2823067, 8143565, 83979704, 4521382 #### [facility] [address] [place] [address] Neutrophils/Leukocy elli Auto (Bld) [Pure # fraction] 7.5 E9/L Normal 2.0-7.5 [facility] Comment on above: Order Comment: Order Added by Discern Expert. Performed By: #### 2 585981, 3157955, 4219560, 3205750, 69432175, 8522758 #### [facility] [address] [place] [address] BUNon 04-07-2023 Urea nitrogen [Mass/Vol] 20 mg/dL Normal 5-21 [facility] Comment on above: Performed By: #### 2 424269, 4955725, 2076477, 2451985, 84777812, 9090207 #### [facility] [address] [place] [address] CBC w/ Auto Diffon Erythrocyte distribution width (RBC) [Ratio] 14.6 % High 10.9-14.2 [facility] Comment on above: Performed By: #### 2 199275, 1177755, 3408214, 9699885, 33323722, 6899992 #### [facility] [address] [place] [address] Hematocrit (Bld) [Volume fraction] 29.7 % Low 34.0-46.0 [facility] Comment on above: Performed By: #### 2 513169, 3229225, 3390600, 0331361, 25882716, 1120744 #### [facility] [address] [place] [address] Hemoglobin (Bld) [Mass/Vol] 10.0 g/dL Low 12.0-16.0 [facility] Comment on above: Performed By: #### 2 640400, 3801152, 9560870, 1652841, 45938166, 9363104 #### [facility] [address] [place] [address] MCH (RBC) [Entitic mass] 32.5 pg Normal 27.0-34.0 [facility] Comment on above: Performed By: #### 2 681330, 1968842, 1718115, 6871112, 17430984, 3543926 #### [facility] [address] [place] [address] MCHC (RBC) [Mass/Vol] 33.6 g/dL Normal 31.4-36.0 [facility] Comment on above: Performed By: #### 2 775150, 8443958, 5728356, 7385561, 68646152, 4945778 #### [facility] [address] [place] [address] MCV (RBC) [Entitic vol] 96.7 fL Normal 80.0-100.0 [facility] Comment on above: Performed By: #### 2 028253, 4073218, 6143937, 8511262, 55378988, 7131717 #### [facility] [address] [place] [address] Platelet mean volume (Bld) [Entitic vol] 7.1 fL Normal 6.4-10.8 [facility] Comment on above: Performed By: #### 2 329972, 5013494, 3221649, 9622548, 54941712, 3342744 #### [facility] [address] [place] [address] Platelets (Bld) [#/Vol] 215.0 E9/L Normal 150.0-500.0 [facility] Comment on above: Performed By: #### 2 505678, 6274487, 9977029, 2009633, 92764936, 0591621 #### [facility] [address] [id number] RBC (Bld) [#/Vol] 3.1 E12/L Low 4.3-5.9 [facility] Comment on above: Performed By: #### 2 581699, 8909657, 5123179, 7577506, 13747457, 9022299 #### [facility] [address] [place] [address] WBC corrected for nucl RBC Auto (Bld) [#/Vol] 9.6 E9/L Normal 4.0-11.0 [facility] Comment on above: Performed By: #### 2 879301, 3546107, 6191303, 7930148, 07298227, 6382720 #### [facility] [address] [place] [address] CHEMISTRYOrdered By: SYSTEM SYSTEM on 04-07-2023 Anion gap [Moles/Vol] 6 mmol/L Normal 6 - 16 mEq/L [facility] Chloride [Moles/Vol] 118 mmol/L High 101 - 111 mmol/L [facility] CO2 [Moles/Vol] 23 mmol/L Normal 21 - 31 mmol/L [facility] Creatinine [Mass/Vol] 0.9 mg/dL Normal 0.5 - 1.3 mg/dL [facility] Remisol GFR/1.73 sq M.predicted among non-blacks MDRD (S/P/Bld) [Vol rate/Area] 72 mL/min/1.73 m2 Normal >=59mL/min/ 1.73 m2 [facility] Chem S Comment on above: Interpretive Data: C hronic kidney disease could be indicated at eGFR's of less than 60 mL/min/1.73m2. Kidney failure is indicated at less than 15 mL/min/1.73m2. Potassium [Moles/Vol] 4.0 mmol/L Normal 3.5 - 5.3 mmol/L [facility] Remisol Sodium [Moles/Vol] 143 mmol/L Normal 135 - 145 mmol/L [facility] Remisol Urea nitrogen [Mass/Vol] 20 mg/dL Normal 5 - 21 mg/dL [facility] Remisol Consent for Anesthesiaon Consent for Anesthesia [id number]:127 Normal [facility] Creatinineon 04-07-2023 Creatinine [Mass/Vol] 0.9 mg/dL Normal 0.5-1.3 [facility] Comment on above: Performed By: #### 2 014407, 3087367, 7006921, 6412178, 20856969, 7742081 ####[facility] [address] [place] [address] Discharge Instructionson Discharge Instructions [id number]:127 Normal [facility] Discharge Note-Nursingon Discharge Note-Nursing RADHA ZAIDI [...] Complete Right This Is Your Medications List acetaminophen-oxycodone (Percocet 5 mg-325 mg oral tablet) buPROPion [...] Pending Diagnostic Test Results None Pharmacy Information ELSIE Lu New Follow Up Appointments after Discharge Follow Up with Jordan Yuan When: Where: [address] [place] [address]- Business (1) Follow Up with JOHN ASHBY When: In 0 days Where: [address], [place] [address]- Business (1) Medications What How Much When Instructions Next Dose Changed acetaminophen-oxycodone (Percocet 5 mg-325 mg oral tablet) See instructions 1-2 tab(s) Oral q4hr Pickup at [facility]/pharmacy #6177 Next dose due after 10am Unchanged buPROPion (Wellbutrin XL 300 mg/ 24 hours Tab-ER) 1 Tablets By Mouth 2 times a day 04/07/23 @ 9pm Unchanged celecoxib (CeleBREX 100 mg Cap) 1 Capsules By Mouth 2 times a day as needed for for pain Pickup at [facility]/pharmacy #6177 04/07/23 @ 9pm Unchanged cephalexin (Keflex 500 mg Cap) 1 Capsules By Mouth Every 8 hours Duration: 7 Days Pickup at [facility]/pharmacy #6177 04/07/23 @ 2pm and bedtime Unchanged docusate (Colace 100 mg Cap) 1 Capsules By Mouth 2 times a day as needed for for constipation Pickup at [facility]/pharmacy #6177 04/07/23 @ 9pm Unchanged leflunomide (Arava [...] Every day 04/08/23 @ 9am Pharmacy Information [facility]/pharmacy #[id number]: [address] [place], [place] [phone] Test Results CBC BMP WBC: 9.6 E9/L [...] Lateralized/ 24, Shoulder Implant 04/06/2023 Univers revers [place] humeral Stem Size 9, Shoulder Implant 04/06/2023 UniversRevers SutureCap, 36 neutral, shoulder Implant 04/06/2023 universrevers Humeral Insert, small, 36, +6, Shoulder (more content not included)... Normal [facility] HEMATOLOGYOrdered By: SYSTEM SYSTEM on 04-07-2023 Basophils/100 WBC (Bld) 0.2 % Normal 0.0 - 2.0 % [facility] HemeAutoSS Basophils/Leukocyte s Auto (Bld) [Pure # fraction] 0.0 E9/L Normal 0.0 - 0.2 E9/L [facility]eAutoSS Eosinophils/100 WBC (Bld) 0.0 % Normal 0.0 - 8.0 % [facility] HemeAutoSS Eosinophils/Leukocy elli Auto (Bld) [Pure # fraction] 0.0 E9/L Normal 0.0 - 0.5 E9/L [facility]eAutoSS Lymphocytes/100 WBC (Bld) 7.9 % Low 14.0 - 50.0 % [facility] HemeAutoSS Lymphocytes/Leukocy elli Auto (Bld) [Pure # fraction] 0.8 E9/L Low 1.0 - 4.0 E9/L [facility]eAutoSS Monocytes/100 WBC (Bld) 14.0 % Normal 4.0 - 14.0 % [facility] HemeAutoSS Monocytes/Leukocyte s Auto (Bld) [Pure # fraction] 1.3 E9/L High 0.2 - 1.0 E9/L [facility]eAutoSS Neutrophils/100 WBC (Bld) 77.9 % High 36.0 - 75.0 % [facility] HemeAutoSS Neutrophils/Leukocy elli Auto (Bld) [Pure # fraction] 7.5 E9/L [...] 33.6 g/dL Normal 31.4 - 36.0 gm/dL [facility] HemeAutoSS MCV (RBC) [Entitic vol] 96.7 fL Normal 80.0 - 100.0 fL [facility] HemeAutoSS Platelet mean volume (Bld) [Entitic vol] 7.1 fL Normal 6.4 - 10.8 fL [facility] HemeAutoSS Platelets (Bld) [#/Vol] 215.0 E9/L Normal 150.0 - 500.0 E9/L [facility]Auto[facility] RBC (Bld) [#/Vol] 3.1 E12/L Low 4.3 - 5.9 E12/L [facility]eAutoSS WBC corrected for nucl RBC Auto (Bld) [#/Vol] 9.6 E9/L Normal 4.0 - 11.0 E9/L [facility] HemeAutoSS Inpatient Clinical Summaryon 04-07-2023 Inpatient Clinical Summary [address] [address] Clinical Summary Person Information: Name: RADHA ZAIDI Age: 62 Years : 1960 Sex: Female PCP: JOHN ASHBY DO Marital Status: Phone: [phone] Race: White Ethnicity: Non- or Language: Lithuanian Visit Id: Visit Reason: OA RIGHT SHOULDER Speciality: Acuity: Enc Type: Observation Med Service: Medical Arrival: 04/06/2023 06:09:55 Discharge: Dispo Type: Address: [address] [place] [address] [address] [place] [id number] Provider Notes: Patient: RADHA ZAIDI Age: 62 [...] Immunizations Documented This Visit Final Med List: acetaminophen-oxycodone (Percocet 5 mg-325 mg oral tablet) 1-2 [...] up: With: Address: When: Jordan Yuan [address] [id number] Business (1) 04/19/2023 2:15 PM With: Address: When: JOHN ASHBY [address] [place], [place] [phone] Business (1) Patient Education Information: Iris Yuan - Shoulder Replacement (Custom) Normal [facility] Inpatient Patient Summaryon 04-07-2023 Inpatient Patient Summary [address] [address] Patient Discharge Instructions PERSON INFORMATION Name: RADHA ZAIDI Date of : 1960 Current Date: 04/07/2023 08:46:37 PHYSICIANS Admitting Physician: Brown DO, Jordan A Primary Care Physician: JOHN ASHBY DO PCP [...] Follow up: With: Address: When: Jordan Yuan [address] [place] [address] Business (1) 04/19/2023 2:15 PM With: Address: When: JOHN ASHBY [address] [place] [address] Business (1) In the event that this physician does not participate in your insurance network, please consult with your insurance company to find a nearby participating provider. Comment: DYAN Florentino CHERYLL J, have received the attached patient education materials/instructions and have verbalized understanding: Patient Signature Date Clinican/Nurse Signature Date HERE ARE THE MEDICATION CHANGES THAT OCCURRED DURING YOUR HOSPITAL STAY Medications to Continue Taking That Have Changed [id number], [address] [place], [place] [phone], [phone] START: acetaminophen-oxycodone (Percocet 5 mg-325 mg oral tablet) 1-2 tab(s) Oral q4hr. Refills: 0. Last Dose: Ne xt Dose: STOP: acetaminophen-oxycodone (Percocet 5 mg-325 mg oral tablet) 1 Tablets By Mouth 3 times a day. Medications to Continue with No Changes [id number], [address] [place] [phone], [phone] celecoxib (CeleBREX 100 mg Cap) 1 Capsules By Mouth 2 times a day as needed for pain. Refills: 0. Last Dose: Ne xt Dose: cephalexin (Keflex 500 mg Cap) 1 Capsules By Mouth every 8 hours for 7 Days. Refills: 0. Last Dose: Ne xt Dose: docusate (Colace 100 mg Cap) 1 Capsules By Mouth 2 times a day as needed for constipation. Refills: 0. Last Dose: Ne xt Dose: Other Medications buPROPion (Wellbutrin XL 300 mg/24 hours Tab-ER) 1 Tablets By Mouth 2 times a day. Last Dose: Ne xt Dose: leflunomide (Arava 10 mg oral tablet) 1 Tablets By Mouth every day. Last Dose: Ne xt Dose: lisinopril (lisinopril 5 mg Tab) 1 Tablets By Mouth every day. Last Dose: Ne xt Dose: metoprolol (metoprolol 100 mg ER Tab) 1 Tablets By Mouth at bedtime. Last Dose: Ne xt Dose: pregabalin (Lyrica 150 mg Cap) 1 Capsules By Mouth 2 times a day. Last Dose: Ne xt Dose: tizanidine (Zanaflex 4 mg Tab) 1 tab(s) Oral in AM 3 tabs at bedtime. Last Dose: Ne xt Dose: upadacitinib (Rinvoq 15 mg oral tablet, extended release) 1 Tablets By Mouth every day. Last Dose: Ne xt Dose: Comment: MEDICATION LIST PROVIDED FOR YOU IS A LIST OF YOUR CURRENT MEDICATIONS. PLEASE CARRY THIS WITH YOU AT ALL TIMES. acetaminophen-oxycodone (Percocet 5 mg-325 mg oral tablet) 1-2 [...] Lu (419) (more content not included)... Normal [facility] IntraOperative Documentson 0 04-07-2023 IntraOperative Documents [id number]#[id number]:127 Normal [facility] IntraOperative Documents [id number]#[id number]:127 Normal [facility] Lyteson 04-07-2023 Anion gap [Moles/Vol] 6 mmol/L Normal 6-16 [facility] Comment on above: Performed By: #### 2 566464, 9963025, 5594935, 5987686, 59316270, 4814639 ####[facility] [address] [place] [address] Chloride [Moles/Vol] 118 mmol/L High 101-111 [facility] Comment on above: Performed By: #### 2 187889, 9169783, 6404902, 6189809, 12697239, 4417617 ####[facility] [address] [place] [address] CO2 [Moles/Vol] 23 mmol/L Normal 21-31 [facility] Comment on above: Performed By: #### 2 111951, 6354565, 6183035, 4455674, 52842259, 6700853 ####[facility] [address] [place] [address] Potassium [Moles/Vol] 4.0 mmol/L Normal 3.5-5.3 [facility] Comment on above: Performed By: #### 2 724196, 9289462, 4441874, 9386683, 77917921, 6655611 ####[facility] [address] [place] [address] Sodium [Moles/Vol] 143 mmol/L Normal 135-145 [facility] Comment on above: Performed By: #### 2 994436, 4007790, 8340633, 9739984, 89148778, 7394308 ####[facility] [address] [place] [address] Main OR Intraoperative Recor don 04-07-2023 Main OR Intraoperative Record IntraOp Document Type FT Summary Primary Physician: Jordan Yuan DO Finalized Date/Time: 04/07/23 14:30:58 Pt. Name: DYAN RADHA Carrillo/Sex: 1960 Female Med Rec #: [id number] Physician: Jordan Yuan DO Financial #: [id number] Pt. Type: A Room/Bed: [place] [address] Admit/Disch: 04/06/23 06:09:55 - 04/07/23 09:30:00 Institution: [...] Patient transported via cart back to [facility] and placed on SP02 monitor by ESTRELLITA De La Fuente. 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 Last Modified By: Wanda ACID DIPPER, Sharmaine Goldman RN, Dennis Goldman RN, Dennis Curry 04/07/23 14:28:51 04/06/23 11:35:47 04/06/23 11:35:47 Entry 4 Entry 5 Entry 6 Case Attendee Valerie ACID DIPPER, Jena Taylor ACID DIPPER, John Role Performed Scrub - Primary Scrub - Primary ACID DIPPER/SA Time In 04/06/23 09:32:00 04/06/23 09:32:00 04/06/23 09:32:00 Time Out 04/06/23 11:20:00 04/06/23 11:36:00 04/06/23 11:36:00 Procedure SHOULDER TOTAL SHOULDER TOTAL SHOULDER TOTAL ARTHROPLASTY(Right) ARTHROPLASTY(Right) ARTHROPLASTY(Right) Comments in orientation Last Modified By: Susi RN, Dennis Goldman RN, Dennis Goldman RN, Dennis Curry 04/06/23 11:35:47 04/06/23 11:35:47 04/06/23 11:35:47 Entry 7 Entry 8 Case Attendee Alfredo, Deyanira Vega Role Performed Staff - Other Staff - [...] DO, Krupp RN, Dennis Curry, Valerie MARI, Johnathan Hernandez Sydney A, Wilhelm CST, Alfredo [...] (more content not included)... Normal [facility] Main OR PACU I Recordon 03-12 Main OR PACU I Record PACU Phase I Document Type FT Summary Primary Physician: Jordan Yuan DO Finalized Date/Time: 04/07/23 08:05:19 Pt. Name: DYAN RADHA Carrillo/Sex: 1960 Female Med Rec #: [id number] Physician: Jordan Yuan DO Financial #: [id number] Pt. Type: O Room/Bed: [place] [address] Admit/Disch: 04/06/23 06:09:55 - Institution: Case Times [...] Gonsales RN 04/07/23 08:05 Normal [facility] Patient Education - Texton 0 04-07-2023 Patient Education - Text [place], [place] [facility] DISCHARGE INSTRUCTIONS: SHOULDER REPLACEMENT [...] persistent vomiting. Jordan Yuan DO [facility] [address] [place] [address] Reviewed: Normal [facility] Preoperative Documentson Preoperative Documents [id number]#[id number]:127 Normal [facility] Progress Note-Physicianon Progress Note-Physician Patient: RADHA [...] mmHg SpO2 94 % Normal [facility] Comment on above: Result Comment: Elec tronically Signed By: Jordan Yuan DO\.br\Date and Time Signed: 04/07/23 07:40 EDT eGFRon 04-07-2023 GFR/1.73 sq M.predicted among non-blacks MDRD (S/P/Bld) [Vol rate/Area] 72 mL/min/1.73 m2 Normal >=59 [facility] Comment on above: Order Comment: Order added by Discern Expert. Result Comment: Bead Inspector dina kidney disease could be indicated at eGFR's of less than 60 mL/min/1.73m2. Kidney failure is indicated at less than 15 mL/min/1.73m2. Performed By: #### 2 857320, 5148790, 5364246, 9248506, 14136368, 9248574 ####[facility] [address] [place] [address] ABO/Rhon 04-06-2023 ABO/Rh Positive Invalid Interpretation Code [facility] Comment on above: Performed By: #### 1 0272377, 22533703, 43484803, 6989481 ####[address] [place] [address] ABO/Rh History Checkon 04-06 ABO/Rh History Check Verified Hx Blood Type Normal [facility] Comment on above: Performed By: #### 1 8420006, 89401674, 76548583, 7243797 ####[address] [place] [address] ABSCon 04-06-2023 ABSC Gel Interp Negative Normal [facility] Comment on above: Performed By: #### 1 2209004, 54235961, 85244301, 7417791 ####[address] [address] BLOOD BANKOrdered By: Andra Nunez on 04-06-2023 ABO/Rh Interp Positive Invalid Interpretation Code [facility] BB Subsection ABSC Gel Interp Negative (04/06/23 7:23 AM) Normal [facility] BB Subsection Blood Bank ID#on 04-06-2023 BBID# [id number] Invalid Interpretation Code [facility] Comment on above: Performed By: #### 1 8526319, 61781598, 35292028, 4980953 ####[facility] [address] [place] [address] Consent for Treatmenton 03-12 Consent for Treatment [id number]#1.00CD:127 Normal [facility] H&P Updateon 04-06-2023 H&P Update [id number]#1.00CD:127 Normal [facility] Insurance Correspondence Off iceon 04-06-2023 Insurance Correspondence Office [id number]#[id number]:127 Normal [facility] Main OR Preoperative Recordo n 04-06-2023 Main OR Preoperative Record PreOp Document Type FT Summary Primary Physician: Jordan Yuan DO Finalized Date/Time: 04/06/23 09:32:24 Pt. Name: DYAN RADHA Carrillo/Sex: 1960 Female Med Rec #: [id number] Physician: Jordan Yuan DO Financial #: [id number] Pt. Type: A Room/Bed: 11/08 Admit/Disch: 04/06/23 [...] Goldman RN 04/06/23 09:32 Normal [facility] Monitor Recordon 04-06-2023 Monitor Record [id number]#1.00CD:127 Normal [facility] Monitor Record [id number]#1.00CD:127 Normal [facility] Monitor Record [id number]#1.00CD:127 [facility] Operative Reporton 3 Operative Report Patient: ELIZABET ZAIDI Age: 62 years Sex: Female : 1960 Associated Diagnoses: None Author: Jordan Yuan DO DATE OF SURGERY: 04/06/2023 SURGEON: Jordan Yuan D.O. WOODWORK SALVAGE INSPECTOR: Anival Flores CFA PREOPERATIVE DIAGNOSIS: Massive rotator [...] 3. size +6 humeral insert 4. Revers [place] size 9 stem with 36 (neutral) Suturecup OPERATIVE INDICATIONS: Radha is a 62-year-old yvipu-cjmq-[id number] female who has had persistent right shoulder [...] intraoperative instrumentation were performed with the [employer] software. PROCEDURE: The correct operative site was [...] (more content not included)... Normal [facility] Comment on above: Result Comment: Elec tronically Signed By: Jordan Yuan DO\.zari\Date and Time Signed: 09/27/23 15:39 EDT Operative Report Patient: ELIZABET ZAIDI Age: 62 years Sex: Female : [...] Using maximal sterile barrier technique per current [facility] guidelines including hand hygeine, Guidance (Ultrasound [...] patient tolerated the procedure as expected. Normal [facility] Comment on above: Result Comment: Elec tronically Signed By: Yanick Rai DO\.br\Date and Time Signed: 04/06/23 08:44 EDT Progress Note-Physicianon Progress Note-Physician Patient: RADHA ZAIDI Age: 62 years Sex: Female : 1960 Associated Diagnoses: None Author: Yanick Rai DO Postoperative Information Postoperative disposition: Postoperative disposition: To PACU. Optimetrix number: Optimetrix number [id number]. Anesthetic utilized: General. Regional: Interscalene Block. Health [...] pain, # 60 cap(s), Refills(s) 0, Pharmacy: [facility]/pharmacy #6177, 160, cm, 03/25/23 6:16:00 EDT, Height/Length Dos (more content not included)... 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 Family History: Primary malignant neoplasm of prostate Father Acute myocardial infarction Mother Procedure history: Cervical laminectomy (8127579432). Amputation of finger (085539073). Removal of lung, Partial (84660). Open reduction and internal fixation of fracture Leg (388181949). Foot surgery (2953645172). Lumbar discectomy (014332271). Social History Social & Psychosocial Habits Alcohol [...] mmHg (APR 06:39) SpO2 95 % (APR 06 06:39) Airway: Mallampati classification: II (soft palate, fauces, uvula visible). Distance: Mentohyoid, Interincisive, Thyromental, Mentosternal, Adequate. HENT: Normocephalic. Respiratory: Lungs are clear to auscultation. (more content not included)... Normal [facility] Comment on above: Result Comment: Elec [...] Signed by: Gigi Suazo DO Transcribed by: DP Technologist: DPR Technical Comments Radiation Dose: Ka,r in mGy = na DAP = na Normal [facility] Consent for Procedure/Surger yon 04-05-2023 Consent for Procedure/Surgery [id number]#[id number]:127 Normal [facility] CT Upper Extremity w/o Contr ast [...] by: DANISHA Technologist: CONSTANTINO Normal [facility] ABO/Rh Retypeon 03-24-2023 ABO/Rh Retype Interp Positive Invalid Interpretation Code [facility] Comment on above: Performed By: #### 1 [id number] ####[facility] [address] [place] [address] BLOOD BANKOrdered By: Andra Longoria on 03-24-2023 ABO/Rh Retype Interp Positive Invalid Interpretation Code [facility] BB Subsection BUNon 03-24-2023 Urea nitrogen [Mass/Vol] 28 mg/dL High 5-21 [facility] Comment on above: Performed By: #### 1 7526524, 5907686, 3326662, 5413393, 1375560, 8170820 ####[address] [place] [address] CBC w/Indiceson 03-24-2023 Erythrocyte distribution width (RBC) [Ratio] 14.5 % High 10.9-14.2 [facility] Comment on above: Performed By: #### 1 6257180, 4190166, 9769384, 1686879, 9660214, 2868612 ####[address] [place] [address] Hematocrit (Bld) [Volume fraction] 35.9 % Normal 34.0-46.0 [facility] Comment on above: Performed By: #### 1 1860909, 1118803, 8953345, 6270805, 4267630, 4835091 ####[address] [place] [address] Hemoglobin (Bld) [Mass/Vol] 11.9 g/dL Low 12.0-16.0 [facility] Comment on above: Performed By: #### 1 4329912, 5657254, 0631347, 1159949, 3286139, 0087176 ####[address] [place] [address] MCH (RBC) [Entitic mass] 32.3 pg Normal 27.0-34.0 [facility] Comment on above: Performed By: #### 1 1949909, 7607839, 7478498, 9143349, 7234206, 5330367 ####[address] [address] MCHC (RBC) [Mass/Vol] 33.1 g/dL Normal 31.4-36.0 [facility] Comment on above: Performed By: #### 1 2732964, 8651056, 4134968, 8799805, 4347104, 6995274 ####[address] [place] [address] MCV (RBC) [Entitic vol] 97.4 fL Normal 80.0-100.0 [facility] Comment on above: Performed By: #### 1 5897850, 4208633, 6749376, 8301551, 5619894, 2480757 ####[facility] [address] [place] [address] Platelet mean volume (Bld) [Entitic vol] 7.4 fL Normal 6.4-10.8 [facility] Comment on above: Performed By: #### 1 4181145, 7075831, 7874369, 3144335, 1711557, 0836640 ####[facility] [address] [place] [address] Platelets (Bld) [#/Vol] 207.0 E9/L Normal 150.0-500.0 [facility] Comment on above: Performed By: #### 1 8767894, 7323993, 2967249, 9414874, 0854063, 2299564 ####[facility] [address] [place] [address] RBC (Bld) [#/Vol] 3.7 E12/L Low 4.3-5.9 [facility] Comment on above: Performed By: #### 1 6366969, 9387694, 9994405, 1116100, 9767878, 9776217 ####[facility] [address] [place] [address] WBC corrected for nucl RBC Auto (Bld) [#/Vol] 3.5 E9/L Low 4.0-11.0 [facility] Comment on above: Performed By: #### 1 5331252, 0551479, 9977421, 4728319, 2160922, 4322317 ####[facility] [address] [place] [address] CHEMISTRYOrdered By: SYSTEM SYSTEM on 03-24-2023 Anion gap [Moles/Vol] 12 mmol/L Normal 6 - 16 mEq/L FT Remisol Chloride [Moles/Vol] 111 mmol/L Normal 101 - 111 mmol/L FT Remisol CO2 [Moles/Vol] 20 mmol/L Low 21 - 31 mmol/L FT [facility] Creatinine [Mass/Vol] 1.2 mg/dL Normal 0.5 - 1.3 mg/dL [facility] Remisol GFR/1.73 sq M.predicted among non-blacks MDRD (S/P/Bld) [Vol rate/Area] 51 mL/min/1.73 m2 Low >=59mL/min/ 1.73 m2 [facility] Chem S Glucose [Mass/Vol] 84 mg/dL Normal 55 - 199 mg/dL [facility] Remisol Potassium [Moles/Vol] 4.2 mmol/L Normal 3.5 - 5.3 mmol/L [facility] Remisol Sodium [Moles/Vol] 139 mmol/L Normal 135 - 145 mmol/L [facility] Remisol Urea nitrogen [Mass/Vol] 28 mg/dL High 5 - 21 mg/dL [facility] Remisol Consent for Treatmenton 03-11 Consent for Treatment [id number]:127 Normal [facility] Creatinineon 03-24-2023 Creatinine [Mass/Vol] 1.2 mg/dL Normal 0.5-1.3 [facility] Comment on above: Performed By: #### 1 8975402, 7507238, 9839626, 7524595, 4045414, 7746074 ####[facility] [address] [place] [address] Glucoseon 03-24-2023 Glucose [Mass/Vol] 84 mg/dL Normal 55-199 [facility] Comment on above: Performed By: #### 1 9301428, 6934135, 8059420, 1127079, 6840735, 8407586 ####[facility] [address] [place] [address] HEMATOLOGYOrdered By: Andra Longoria on 03-24-2023 Erythrocyte distribution width (RBC) [Ratio] 14.5 % High 10.9 - 14.2 % [facility] HemeAutoSS Hematocrit (Bld) [Volume fraction] 35.9 % Normal 34.0 - 46.0 % [facility] Hemoglobin (Bld) [Mass/Vol] 11.9 g/dL Low 12.0 - 16.0 gm/dL [facility] MCH (RBC) [Entitic mass] 32.3 pg Normal 27.0 - 34.0 pg [facility] MCHC (RBC) [Mass/Vol] 33.1 g/dL Normal 31.4 - 36.0 gm/dL [facility] MCV (RBC) [Entitic vol] 97.4 fL Normal 80.0 - 100.0 fL [facility] Platelet mean volume (Bld) [Entitic vol] 7.4 fL Normal 6.4 - 10.8 fL [facility] Platelets (Bld) [#/Vol] 207.0 E9/L Normal 150.0 - 500.0 E9/L [facility] RBC (Bld) [#/Vol] 3.7 E12/L Low 4.3 - 5.9 E12/L [facility] WBC corrected for nucl RBC Auto (Bld) [#/Vol] 3.5 E9/L Low 4.0 - 11.0 E9/L [facility] HemeAutoSS Lyteson 03-24-2023 Anion gap [Moles/Vol] 12 mmol/L Normal 6-16 [facility] Comment on above: Performed By: #### 1 5259869, 6141898, 9260936, 6793825, 7006626, 1941860 ####[facility] [address] [place] [address] Chloride [Moles/Vol] 111 mmol/L Normal 101-111 [facility] Comment on above: Performed By: #### 1 [id number], [id number], [id number], [id number], [id number], [id number] ####[facility] [address] [place] [address] CO2 [Moles/Vol] 20 mmol/L Low 21-31 [facility] Comment on above: Performed By: #### 1 [id number], [id number], 6118853, 5980062, 3207513, [id number] ####[facility] [address] [place] [address] Potassium [Moles/Vol] 4.2 mmol/L Normal 3.5-5.3 [facility] Comment on above: Performed By: #### 1 [id number], 3700701, 2787573, 4455824, 2760365, 2614595 ####[facility] [address] [place] [address] Sodium [Moles/Vol] 139 mmol/L Normal 135-145 [facility] Comment on above: Performed By: #### 1 [id number], 5061437, 0306384, 5829361, 1740524, 4505232 ####[facility] [address] [place] [address] UA With Cult Reflexon 2022 Bilirubin Ql (U) Negative Normal Negative [facility] Comment on above: Performed By: #### 1 [id number] #### [facility] [address] [place] [address] Clarity (U) CLEAR Normal Clear [facility] Comment on above: Performed By: #### 1 [id number] #### [facility] [address] [place] [address] Color (U) YELLOW Normal Yellow [facility] Comment on above: Performed By: #### 1 [id number] #### [facility] [address] [place] [address] Epithelial cells.squamous LM.HPF (Urine sed) [#/Area] 0-2 Normal 0-2 [facility] Comment on above: Performed By: #### 1 [id number] #### [facility] [address] [place] [address] Fine Granular Casts LM Ql (Urine sed) 0-3 Normal [facility] Comment on above: Performed By: #### 1 [id number] #### [facility] [address] [place] [address] Glucose Test strip (U) [Mass/Vol] Negative Normal Negative [facility] Comment on above: Performed By: #### 1 [id number] #### [facility] [address] [place] [address] Hemoglobin Ql (U) Negative Normal Negative [facility] Comment on above: Performed By: #### 1 [id number] #### [facility] [address] [place] [address] Ketones (U) [Mass/Vol] Negative Normal Negative [facility] Comment on above: Performed By: #### 1 [id number] #### [facility] [address] [place] [address] [place].plasma/Lith ium.RBC (Bld) [Mass ratio] 0-3 Normal 0-3 [facility] Comment on above: Performed By: #### 1 [id number] #### [facility] [address] [place] [address] Mucus Ql (Urine sed) TRACE Normal [facility] Comment on above: Performed By: #### 1 [id number] #### [facility] [address] [place] [address] Nitrite Ql (U) Negative Normal Negative [facility] Comment on above: Performed By: #### 1 [id number] #### [facility] [address] [place] [address] pH (U) 6.0 [pH] Invalid Interpretation Code 5.0-9.0 [facility] Comment on above: Performed By: #### 1 [id number] #### [facility] [address] [place] [address] Protein (U) [Mass/Vol] Negative Normal Negative [facility] Comment on above: Performed By: #### 1 [id number] #### [facility] [address] [place] [address] Specific gravity (U) [Rel density] >=1.030 Invalid Interpretation Code 1.005-1.030 [facility] Comment on above: Performed By: #### 1 [id number] #### [facility] [address] [place] [address] Type of Urine collection method Clean Catch Normal [facility] Comment on above: Performed By: #### 1 [id number] #### [facility] [address] [place] [address] Urobilinogen Qn (U) 0.2 {Rajwinder'U}/dL Normal 0.0-1.0 [facility] Comment on above: Performed By: #### 1 [id number] #### [facility] [address] [place] [address] WBC Auto Ql (U) Negative Normal Negative [facility] Comment on above: Performed By: #### 1 [id number] #### [facility] [address] [place] [address] WBC LM.HPF (Urine sed) [#/Area] 0-5 Normal 0-5 [facility] Comment on above: Performed By: #### 1 [id number] #### [facility] [address] [place] [address] URINALYSISOrdered By: Indira calix on 03-24-2023 Bilirubin Ql (U) Negative (03/24/23 3:05 PM) Normal Negative [facility] UA Auto SS Clarity (U) Clear (03/24/23 3:05 PM) Normal Clear [facility] UA Auto SS Color (U) Yellow (03/24/23 3:05 PM) Normal Yellow [facility] UA Auto SS Epithelial cells.squamous LM.HPF (Urine sed) [#/Area] 0-2 /HPF Normal 0-2/HPF [facility] UA Auto SS Fine Granular Casts LM Ql (Urine sed) 0-3 (03/24/23 3:05 PM) Normal [facility] UA Auto SS Glucose Test strip (U) [Mass/Vol] Negative (03/24/23 3:05 PM) Normal Negative [facility] UA Auto SS Hemoglobin Ql (U) Negative (03/24/23 3:05 PM) Normal Negative [facility] UA Auto SS Ketones (U) [Mass/Vol] Negative (03/24/23 3:05 PM) Normal Negative [facility] UA Auto SS [place].plasma/Lith ium.RBC (Bld) [Mass ratio] 0-3 /HPF Normal 0-3/HPF [facility] UA Auto SS Mucus Ql (Urine sed) Trace (03/24/23 3:05 PM) Normal [facility] UA Auto SS Nitrite Ql (U) Negative (03/24/23 3:05 PM) Normal Negative [facility] UA Auto SS pH (U) 6.0 *NA* (03/24/23 3:05 PM) Invalid Interpretation Code 5.0 - 9.0 [facility] UA Auto SS Protein (U) [Mass/Vol] Negative (03/24/23 3:05 PM) Normal Negative [facility] UA Auto SS Specific gravity (U) [Rel density] >=1.030 *NA* (03/24/23 3:05 PM) Invalid Interpretation Code 1.005 - 1.030 [facility] UA Auto SS UA Spec Desc Clean Catch (03/24/23 3:05 PM) Normal [facility] UA Auto SS Urobilinogen Qn (U) 0.1691863 {Rajwinder'U}/dL Normal 0.0 - 1.0 EU/dL [facility] UA Auto SS WBC Auto Ql (U) Negative (03/24/23 3:05 PM) Normal Negative [facility] UA Auto SS WBC LM.HPF (Urine sed) [#/Area] 0-5 /HPF Normal 0-5/HPF [facility] UA Auto SS XR Chest 2 Viewson [...] na DAP = na Normal [facility] eGFRon 03-24-2023 GFR/1.73 sq M.predicted among non-blacks MDRD (S/P/Bld) [Vol rate/Area] 51 mL/min/1.73 m2 Low >=59 [facility] Comment on above: Order Comment: Order added by Discern Expert. Result Comment: Bead Inspector dina kidney disease could be indicated at eGFR's of less than 60 mL/min/1.73m2. Kidney failure is indicated at less than 15 mL/min/1.73m2. Performed By: #### 1 [id number], 1407042, 9560248, 2051897, 3420216, 3520941 ####[facility] [address] [place] [address] Physician Orderon 03-23-2023 Physician Order [id number]:[id number] Normal [facility] XR SHOULDER RT 2V or >on [...] VANDANA YUAN Date: 2022-10-07 22:08 Normal [facility] CBC AUTO DIFFon 09-16-2022 BASO # 0.0 103/ul Normal 0.0-0.1 [facility] Comment on above: Performed By: #### C BC ####[facility] [address] [place] [address]DrMehreen Alvarado Basophils/100 WBC (Bld) 0.5 % Normal 0.2-2.0 [facility] Comment on above: Performed By: #### C BC ####[facility] [address] [place] [address]DrMehreen Alvarado EO # 0.1 103/ul Normal 0.0-0.7 [facility] Comment on above: Performed By: #### C BC ####[facility] [address] [place] [address]DrMehreen Alvarado Eosinophils/100 WBC (Bld) 2.3 % Normal 0.9-7.0 [facility] Comment on above: Performed By: #### C BC ####[facility] [address] [place] [address]Dr. Andrade Alvarado Erythrocyte distribution width (RBC) [Ratio] 13.7 % Normal 11.0-15.0 [facility] Comment on above: Performed By: #### C BC ####[facility] [address] [place], [place] [address]Dr. Andrade Alvarado Hematocrit (Bld) [Volume fraction] 32.8 % Critically low 36.0-48.0 [facility] Comment on above: Performed By: #### C BC ####[facility] [address] [place], [place] [address]Dr. Andrade Alvarado Hemoglobin (Bld) [Mass/Vol] 10.9 g/dL Critically low 12.0-16.0 [facility] Comment on above: Performed By: #### C BC ####[facility] [address] [place], [place] [address]Dr. Andrade Alvarado IG # 0.02 10e3/ul Normal 0.00-0.03 [facility] Comment on above: Performed By: #### C BC ####[facility] [address] [place], [place] [address]Dr. Andrade Alvarado IG % 0.5 % Normal 0.0-0.5 [facility] Comment on above: Performed By: #### C BC ####[facility] [address] [place], [place] [address]Dr. Andrade Alvarado LYMPH # 1.6 103/ul Normal 1.2-3.8 [facility] Comment on above: Performed By: #### C BC ####[facility] [address] [place], [place] [address]Dr. Andrade Alvarado Lymphocytes/100 WBC (Bld) 41.8 % Normal 20.5-60.0 [facility] Comment on above: Performed By: #### C BC ####[facility] [address] [place], [place] [address]Dr. Andrade Alvarado MANUAL DIFF REQ NO Normal [facility] Comment on above: Performed By: #### C BC ####[facility] [address] [place] [address]Dr. Andrade Alvarado MCH (RBC) [Entitic mass] 31.9 pg Normal 26.7-34.0 [facility] Comment on above: Performed By: #### C BC ####[facility] [address] [place], [place] [address]Dr. Andrade Alvarado MCHC (RBC) [Mass/Vol] 33.2 g/dL Normal 29.9-35.2 [facility] Comment on above: Performed By: #### C BC ####[facility] [address] [place], [place] [address]Dr. Andrade Christiano MCV (RBC) [Entitic vol] 95.9 fL Normal 81.0-99.0 [facility] Comment on above: Performed By: #### C BC ####[facility] [address] [place], [place] [address]Dr. Andrade Christiano MONO # 0.5 103/ul Normal 0.3-0.8 [facility] Comment on above: Performed By: #### C BC ####[facility] [address] [place], [place] [address]Dr. Kellengregory Alvarado Monocytes/100 WBC (Bld) 13.1 % Critically high 1.7-12.0 [facility] Comment on above: Performed By: #### C BC ####[facility] [address] [place], [place] [address]Dr. Kellengregory Christiano NEUT # 1.6 103/ul Normal 1.4-6.5 [facility] Comment on above: Performed By: #### C BC ####[facility] [address] [place], [place] [address]Dr. Andrade Alvarado Neutrophils/100 WBC (Bld) 41.8 % Critically low 43.0-75.0 [facility] Comment on above: Performed By: #### C BC ####[facility] [address] [place], [place] [address]Dr. Andrade Alvarado Platelet mean volume (Bld) [Entitic vol] 8.8 fL Critically low 9.5-13.5 [facility] Comment on above: Performed By: #### C BC ####[facility] [address] [place] [address]Dr. Andrade Alvarado PLT 219 103/ul Normal 150-450 [facility] Comment on above: Performed By: #### C BC ####[facility] [address] [place] [address]Dr. Andrade Alvarado RBC 3.42 106/ul Critically low 4.20-5.40 [facility] Comment on above: Performed By: #### C BC ####[facility] [address] [place] [address]Dr. Andrade Alvarado WBC 3.9 103/ul Critically low 4.0-11.0 [facility] Comment on above: Performed By: #### C BC ####[facility] [address] [place] [address]Dr. Andrade Alvarado FERRITINon 09-16-2022 Ferritin [Mass/Vol] 292.0 ng/mL Critically high 8.0-252.0 [facility] Comment on above: Performed By: #### F ERR, B12FOL, FETIBC #### [facility] [address] [place] [address] [address] Andrade Alvarado IRON AND TIBCon 09-16-2022 % SATURATION 76.2 % Normal [facility] Comment on above: Performed By: #### F ERR, B12FOL, FETIBC #### [facility] [address] [place] [address] [address] Andrade Alvarado Iron [Mass/Vol] 259.0 ug/dL Critically high 50.0-170.0 [facility] Comment on above: Performed By: #### F ERR, B12FOL, FETIBC #### [facility] [address] [place] [address] [address] Andrade Alvarado TIBC DIRECT 340.0 ug/dL Normal 250.0-450.0 [facility] Comment on above: Performed By: #### F ERR, B12FOL, FETIBC #### [facility] [address] [place], [place] [address] Dr. Andrade Alvarado PROF 14(COMP METB)on 023 Albumin [Mass/Vol] 4.0 g/dL Normal 3.4-5.0 [facility] Comment on above: Performed By: #### C MP ####[facility] [address] [place] [address]DrMehreen Alvarado Albumin/Globulin [Mass ratio] 1.3 {ratio} Normal [facility] Comment on above: Performed By: #### C MP ####[facility] [address] [place] [address]Dr. Andrade Alvarado ALP [Catalytic activity/Vol] 47 U/L Normal 46-116 [facility] Comment on above: Performed By: #### C MP ####[facility] [address] [place] [address]Dr. Andrade Alvarado ALT [Catalytic activity/Vol] 23 U/L Normal 14-59 [facility] Comment on above: Performed By: #### C MP ####[facility] [address] [place] [address]DrMehreen Alvarado Anion gap [Moles/Vol] 12.1 mmol/L Normal [facility] Comment on above: Performed By: #### C MP ####[facility] [address] [place] [address]Dr. Andrade Alvarado AST [Catalytic activity/Vol] 23 U/L Normal 15-37 [facility] Comment on above: Performed By: #### C MP ####[facility] [address] [place] [address]DrMehreen Alvarado Bilirubin [Mass/Vol] 0.4 mg/dL Normal 0.2-1.0 [facility] Comment on above: Performed By: #### C MP ####[facility] [address] [place] [address]DrMehreen Alvarado Calcium [Mass/Vol] 9.3 mg/dL Normal 8.5-10.1 [facility] Comment on above: Performed By: #### C MP ####[facility] [address] [place] [address]Dr. Andrade Alvarado Chloride [Moles/Vol] 108 mmol/L Critically high 98-107 [facility] Comment on above: Performed By: #### C MP ####[facility] [address] [place] [address]Dr. Andrade Alvarado CO2 [Moles/Vol] 26.9 mmol/L Normal 21.0-32.0 [facility] Comment on above: Performed By: #### C MP ####[facility] [address] [place] [address]Dr. Andrade Alvarado Creatinine [Mass/Vol] 0.87 mg/dL Normal 0.55-1.02 [facility] Comment on above: Performed By: #### C MP ####[facility] [address] [place], [place] [address]Dr. Andrade Alvarado EGFR-AF CAMBODIAN >60 Normal >=60 [facility] Comment on above: Performed By: #### C MP ####[facility] [address] [place] [address]Dr. Andrade Alvarado EGFR-NON AF CAMBODIAN >60 Normal >=60 [facility] Comment on above: Performed By: #### C MP ####[facility] [address] [place] [address]Dr. Andrade Alvarado Globulin (S) [Mass/Vol] 3.0 g/dL Normal [facility] Comment on above: Performed By: #### C MP ####[facility] [address] [place] [address]Dr. Andrade Alvarado Glucose [Mass/Vol] 102 mg/dL Normal 74-106 [facility] Comment on above: Performed By: #### C MP ####[facility] [address] [place] [address]Dr. Andrade Alvarado Potassium [Moles/Vol] 4.0 mmol/L Normal 3.5-5.1 [facility] Comment on above: Performed By: #### C MP ####[facility] [address] [place] [address]Dr. Andrade Alvarado Protein [Mass/Vol] 7.0 g/dL Normal 6.4-8.2 [facility] Comment on above: Performed By: #### C MP ####[facility] [address] [place] [address]Dr. Andrade Alvarado Sodium [Moles/Vol] 143 mmol/L Normal 136-145 [facility] Comment on above: Performed By: #### C MP ####[facility] [address] [place] [address]Dr. Andrade Alvarado Urea nitrogen [Mass/Vol] 25.0 mg/dL Critically high 7.0-18.0 [facility] Comment on above: Performed By: #### C MP ####[facility] [address]ws[address] [place] [address]Dr. Andrade Alvarado Urea nitrogen/Creatinine [Mass ratio] 28.7 mg/mg Normal [facility] Comment on above: Performed By: #### C MP ####[facility] [address] [place] [address]Dr. Andrade Alvarado SED RATE WESTERGRENon 2022 SED RATE 11 mm/hr Normal <=30 [facility] Comment on above: Performed By: #### S EDR ####[facility] [address] [place], [place] [address]Dr. Andrade Alvarado VIT B12 AND FOLATEon 023 Cobalamin (Vitamin B12) [Mass/Vol] 249.0 pg/mL Normal 193.0-986.0 [facility] Comment on above: Performed By: #### F ERR, B12FOL, FETIBC #### [facility] [address] [place] [address] Dr. Andrade Alvarado FOLATE 14.00 ng/mL Normal 8.60-58.90 [facility] Comment on above: Performed By: #### F ERR, B12FOL, FETIBC #### [facility] [address] [place] [address] [address] Andrade Alvarado MG MAMM SCREEN 3D BRENNA CADon 2022 MG MAMM SCREEN 3D BRENNA CAD Patient: RADHA ZAIDI Exam Date: 2022 : 1960 Gender:F Ordering : DR JOHN ASHBY D.O. Admission #: [id number] Family : Order #: [id number] CLICK HERE TO VIEW EXAM RADIOLOGY REPORT [...] prostate cancer at age 72. LOCATION: [facility] BREAST COMPOSITION: Scattered areas fibroglandular density. [...] M.D. on 06/09/2022 at 15:30 Normal [facility] CBC AUTO DIFFon 05-20-2022 BASO # 0.0 103/ul Normal 0.0-0.1 [facility] Comment on above: Performed By: #### C BC ####[facility] [address] [place], [place] [address]HwMehreen Alvarado Basophils/100 WBC (Bld) 1.0 % Normal 0.2-2.0 [facility] Comment on above: Performed By: #### C BC ####[facility] [address] [place], [place] [address]HwMehreen Alvarado EO # 0.1 103/ul Normal 0.0-0.7 [facility] Comment on above: Performed By: #### C BC ####[facility] [address] [place] [address]Dr. Andrade Alvarado Eosinophils/100 WBC (Bld) 2.5 % Normal 0.9-7.0 [facility] Comment on above: Performed By: #### C BC ####[facility] [address] [place] [address]Dr. Andrade Alvarado Erythrocyte distribution width (RBC) [Ratio] 13.0 % Normal 11.0-15.0 [facility] Comment on above: Performed By: #### C BC ####[facility] [address] [place], [place] [address]Dr. Andrade Alvarado Hematocrit (Bld) [Volume fraction] 34.9 % Critically low 36.0-48.0 [facility] Comment on above: Performed By: #### C BC ####[facility] [address] [place], [place] [address]Dr. Andrade Alvarado Hemoglobin (Bld) [Mass/Vol] 11.6 g/dL Critically low 12.0-16.0 [facility] Comment on above: Performed By: #### C BC ####[facility] [address] [place], [place] [address]Dr. Andrade Alvarado IG # 0.02 10e3/ul Normal 0.00-0.03 [facility] Comment on above: Performed By: #### C BC ####[facility] [address] [place] [address]Dr. Andrade Alvarado IG % 0.5 % Normal 0.0-0.5 [facility] Comment on above: Performed By: #### C BC ####[facility] [address] [place], [place] [address]Dr. Andrade Alvarado LYMPH # 1.9 103/ul Normal 1.2-3.8 [facility] Comment on above: Performed By: #### C BC ####[facility] [address] [place], [place] [address]Dr. Andrade Alvarado Lymphocytes/100 WBC (Bld) 46.1 % Normal 20.5-60.0 [facility] Comment on above: Performed By: #### C BC ####[facility] [address] [place] [address]Dr. Andrade Alvarado MANUAL DIFF REQ NO Normal [facility] Comment on above: Performed By: #### C BC ####[facility] [address] [place] [address]Dr. Andrade Alvarado MCH (RBC) [Entitic mass] 32.3 pg Normal 26.7-34.0 [facility] Comment on above: Performed By: #### C BC ####[facility] [address] [place] [address]Dr. Andrade Alvarado MCHC (RBC) [Mass/Vol] 33.2 g/dL Normal 29.9-35.2 [facility] Comment on above: Performed By: #### C BC ####[facility] [address] [place], [place] [address]Dr. Andrade Alvarado MCV (RBC) [Entitic vol] 97.2 fL Normal 81.0-99.0 [facility] Comment on above: Performed By: #### C BC ####[facility] [address] [place] [address]Dr. Andrade Alvarado MONO # 0.5 103/ul Normal 0.3-0.8 [facility] Comment on above: Performed By: #### C BC ####[facility] [address] [place] [address]Dr. Andrade Alvarado Monocytes/100 WBC (Bld) 13.5 % Critically high 1.7-12.0 [facility] Comment on above: Performed By: #### C BC ####[facility] [address] [place] [address]Dr. Andrade Alvarado NEUT # 1.5 103/ul Normal 1.4-6.5 [facility] Comment on above: Performed By: #### C BC ####[facility] [address] [place], [place] [address]Dr. Andrade Alvarado Neutrophils/100 WBC (Bld) 36.4 % Critically low 43.0-75.0 [facility] Comment on above: Performed By: #### C BC ####[facility] [address] [place], [place] [address]To. Andrade Alvarado Platelet mean volume (Bld) [Entitic vol] 8.9 fL Critically low 9.5-13.5 [facility] Comment on above: Performed By: #### C BC ####[facility] [address] [place], [place] [address]Wn. Andrade Alvarado PLT 237 103/ul Normal 150-450 [facility] Comment on above: Performed By: #### C BC ####[facility] [address] [place], [place] [address]Nw. Andrade Alvarado RBC 3.59 106/ul Critically low 4.20-5.40 [facility] Comment on above: Performed By: #### C BC ####[facility] [address] [place] [address]Dr. Andrade Alvarado WBC 4.0 103/ul Normal 4.0-11.0 [facility] Comment on above: Performed By: #### C BC ####[facility] [address] [place] [address]DrMehreen Alvarado CRPon 05-20-2022 CRP [Mass/Vol] mg/L Normal <=1.0 [facility] Comment on above: Performed By: #### C MP, CRP, TSH ####[facility] [address] [place] [address]DrMehreen Alvarado PROF 14(COMP METB)on 022 Albumin [Mass/Vol] 4.2 g/dL Normal 3.4-5.0 [facility] Comment on above: Performed By: #### C MP, CRP, TSH #### [facility] [id number] Andrade Alvarado Albumin/Globulin [Mass ratio] 1.3 {ratio} Normal [facility] Comment on above: Performed By: #### C MP, CRP, TSH #### [facility] [address] [place] [address] [address] Andrade Alvarado ALP [Catalytic activity/Vol] 50 U/L Normal 46-116 [facility] Comment on above: Performed By: #### C MP, CRP, TSH #### [facility] [address] [address] [address] Andrade Alvarado ALT [Catalytic activity/Vol] 23 U/L Normal 14-59 [facility] Comment on above: Performed By: #### C MP, CRP, TSH #### [facility] [address] [address] [address] Andrade Alvarado Anion gap [Moles/Vol] 11.3 mmol/L Normal [facility] Comment on above: Performed By: #### C MP, CRP, TSH #### [facility] [address] [address] [address] Andrade Alvarado AST [Catalytic activity/Vol] 23 U/L Normal 15-37 [facility] Comment on above: Performed By: #### C MP, CRP, TSH #### [facility] [address] [place] [address] Dr. Andrade Alvarado Bilirubin [Mass/Vol] 0.5 mg/dL Normal 0.2-1.0 [facility] Comment on above: Performed By: #### C MP, CRP, TSH #### [facility] [address] [place] [address] Dr. Andrade Alvarado Calcium [Mass/Vol] 9.3 mg/dL Normal 8.5-10.1 [facility] Comment on above: Performed By: #### C MP, CRP, TSH #### [facility] [address] [place] [address] Dr. Andrade Alvarado Chloride [Moles/Vol] 104 mmol/L Normal 98-107 [facility] Comment on above: Performed By: #### C MP, CRP, TSH #### [facility] [address] [place] [address] Dr. Andrade Alvarado CO2 [Moles/Vol] 27.2 mmol/L Normal 21.0-32.[address] [facility] Comment on above: Performed By: #### C MP, CRP, TSH #### [facility] [address] [place] [address] Dr. Andrade Alvarado Creatinine [Mass/Vol] 0.99 mg/dL Normal 0.55-1.02 [facility] Comment on above: Performed By: #### C MP, CRP, TSH #### [facility] [address] [address] [address] Andrade Alvarado EGFR-AF CAMBODIAN >60 Normal >=[address] [facility] Comment on above: Performed By: #### C MP, CRP, TSH #### [facility] [address] [address] [address] Andrade Alvarado EGFR-NON AF CAMBODIAN 57 mL/min/1.73m2 Critically low >=60 [facility] Comment on above: Performed By: #### C MP, CRP, TSH #### [facility] [address] [place] [address] Dr. Andrade Alvarado Globulin (S) [Mass/Vol] 3.3 g/dL Normal [facility] Comment on above: Performed By: #### C MP, CRP, TSH #### [facility] [address] [address] [address] Andraed Alvarado Glucose [Mass/Vol] 97 mg/dL Normal 74-106 [facility] Comment on above: Performed By: #### C MP, CRP, TSH #### [facility] [address] [address] [address] Andrade Alvarado Potassium [Moles/Vol] 3.5 mmol/L Normal 3.5-5.1 [facility] Comment on above: Performed By: #### C MP, CRP, TSH #### [facility] [address] [address] [address] Andrade Alvarado Protein [Mass/Vol] 7.5 g/dL Normal 6.4-8.2 [facility] Comment on above: Performed By: #### C MP, CRP, TSH #### [facility] [address] [place] [address] Dr. Andrade Alvarado Sodium [Moles/Vol] 139 mmol/L Normal 136-145 [facility] Comment on above: Performed By: #### C MP, CRP, TSH #### [facility] [address] [address] [address] Andrade Alvarado Urea nitrogen [Mass/Vol] 22.0 mg/dL Critically high 7.0-18.0 [facility] Comment on above: Performed By: #### C MP, CRP, TSH #### [facility] [address] [address] [address] Andrade Alvarado Urea nitrogen/Creatinine [Mass ratio] 22.2 mg/mg Normal [facility] Comment on above: Performed By: #### C MP, CRP, TSH #### [facility] [address] [address] [address] Andrade Alvarado SED RATE WESTERGRENon 2021 SED RATE 22 mm/hr Normal <=30 [facility] Comment on above: Performed By: #### S EDR ####[facility] [address] [address]Dr. Andrade Alvarado TSHon 05-20-2022 TSH 1.373 uIU/mL Normal 0.358-3.740 [facility] Comment on above: Performed By: #### C MP, CRP, TSH #### [facility] [address] [address] [address] Andrade Alvarado CBC AUTO DIFFon 02-16-2022 BASO # 0.0 103/ul Normal 0.0-0.1 [facility] Comment on above: Performed By: #### C BC ####[facility] [address] [address]DrMehreen Alvarado Basophils/100 WBC (Bld) 0.9 % Normal 0.2-2.0 [facility] Comment on above: Performed By: #### C BC ####[facility] [address] [address]DrMehreen Alvarado EO # 0.1 103/ul Normal 0.0-0.7 [facility] Comment on above: Performed By: #### C BC ####[facility] [address] [address]DrMehreen Alvarado Eosinophils/100 WBC (Bld) 2.3 % Normal 0.9-7.0 [facility] Comment on above: Performed By: #### C BC ####[facility] [address] [address]Dr. Andrade Alvarado Erythrocyte distribution width (RBC) [Ratio] 12.6 % Normal 11.0-15.0 [facility] Comment on above: Performed By: #### C BC ####[facility] [address] [place], [place] [address]Dr. Andrade Alvarado Hematocrit (Bld) [Volume fraction] 37.8 % Normal 36.0-48.0 [facility] Comment on above: Performed By: #### C BC ####[facility] [address] [place], [place] [address]Dr. Andrade Alvarado Hemoglobin (Bld) [Mass/Vol] 12.3 g/dL Normal 12.0-16.0 [facility] Comment on above: Performed By: #### C BC ####[facility] [address] [place], [place] [address]Dr. Andrade Alvarado IG # 0.02 10e3/ul Normal 0.00-0.03 [facility] Comment on above: Performed By: #### C BC ####[facility] [address] [place], [place] [address]Dr. Andrade Alvarado IG % 0.5 % Normal 0.0-0.5 [facility] Comment on above: Performed By: #### C BC ####[facility] [address] [place], [place] [address]Dr. Andrade Alvarado LYMPH # 2.1 103/ul Normal 1.2-3.8 [facility] Comment on above: Performed By: #### C BC ####[facility] [address] [place], [place] [address]Dr. Andrade Alvarado Lymphocytes/100 WBC (Bld) 48.3 % Normal 20.5-60.0 [facility] Comment on above: Performed By: #### C BC ####[facility] [address] [place], [place] [address]Dr. Andrade Alvarado MANUAL DIFF REQ NO Normal [facility] Comment on above: Performed By: #### C BC ####[facility] [address] [id number]. Andrade Alvarado MCH (RBC) [Entitic mass] 31.9 pg Normal 26.7-34.0 [facility] Comment on above: Performed By: #### C BC ####[facility] [address] [address]Dr. Andrade Alvarado MCHC (RBC) [Mass/Vol] 32.5 g/dL Normal 29.9-35.2 [facility] Comment on above: Performed By: #### C BC ####[facility] [address] [address]Dr. Andrade Christiano MCV (RBC) [Entitic vol] 97.9 fL Normal 81.0-99.0 [facility] Comment on above: Performed By: #### C BC ####[facility] [address] [place], [place] [address]Dr. Kellengregory Alvarado MONO # 0.5 103/ul Normal 0.3-0.8 [facility] Comment on above: Performed By: #### C BC ####[facility] [address] [place], [place] [address]Dr. Andrade Christiano Monocytes/100 WBC (Bld) 11.2 % Normal 1.7-12.0 [facility] Comment on above: Performed By: #### C BC ####[facility] [address] [place], [place] [address]Dr. Andrade Alvarado NEUT # 1.6 103/ul Normal 1.4-6.5 [facility] Comment on above: Performed By: #### C BC ####[facility] [address] [place], [place] [address]Dr. Kellengregory Alvarado Neutrophils/100 WBC (Bld) 36.8 % Critically low 43.0-75.0 [facility] Comment on above: Performed By: #### C BC ####[facility] [address] [place], [place] [address]Dr. Andrade Alvarado Platelet mean volume (Bld) [Entitic vol] 9.9 fL Normal 9.5-13.5 [facility] Comment on above: Performed By: #### C BC ####[facility] [address] [place], [place] [address]Zu. Andrade Alvarado PLT 213 103/ul Normal 150-450 [facility] Comment on above: Performed By: #### C BC ####[facility] [address] [place], [place] [address]In. Andrade Alvarado RBC 3.86 106/ul Critically low 4.20-5.40 [facility] Comment on above: Performed By: #### C BC ####[facility] [address] [place], [place] [address]Vs. Andrade Alvarado WBC 4.4 103/ul Normal 4.0-11.0 [facility] Comment on above: Performed By: #### C BC ####[facility] [address] [id number]. Andrade Alvarado PROF 14(COMP METB)on 022 Albumin [Mass/Vol] 4.2 g/dL Normal 3.4-5.0 [facility] Comment on above: Performed By: #### C MP #### [facility] [address] [address] [address] Andrade Alvarado Albumin/Globulin [Mass ratio] 1.3 {ratio} Normal [facility] Comment on above: Performed By: #### C MP #### [facility] [address] [address] [address] Andrade Alvarado ALP [Catalytic activity/Vol] 61 U/L Normal 46-116 [facility] Comment on above: Performed By: #### C MP #### [facility] [address] [address] [address] Andrade Alvarado ALT [Catalytic activity/Vol] 23 U/L Normal 14-59 [facility] Comment on above: Performed By: #### C MP #### [facility] [address] [address] [address] Andrade Alvarado Anion gap [Moles/Vol] 15.5 mmol/L Normal [facility] Comment on above: Performed By: #### C MP #### [facility] [address] [address] [address] Andrade Alvarado AST [Catalytic activity/Vol] 20 U/L Normal 15-37 [facility] Comment on above: Performed By: #### C MP #### [facility] [address] [address] [address] Andrade Alvarado Bilirubin [Mass/Vol] 0.5 mg/dL Normal 0.2-1.0 [facility] Comment on above: Performed By: #### C MP #### [facility] [address] [address] [address] Andrade Alvarado Calcium [Mass/Vol] 9.1 mg/dL Normal 8.5-10.1 [facility] Comment on above: Performed By: #### C MP #### [facility] [address] [address] [address] Andrade Alvarado Chloride [Moles/Vol] 106 mmol/L Normal 98-107 [facility] Comment on above: Performed By: #### C MP #### [facility] [address] [address] [address] Andrade Alvarado CO2 [Moles/Vol] 25.6 mmol/L Normal 21.0-32.[address] [facility] Comment on above: Performed By: #### C MP #### [facility] [address] [address] [address] Andrade Alvarado Creatinine [Mass/Vol] 0.97 mg/dL Normal 0.55-1.02 [facility] Comment on above: Performed By: #### C MP #### [facility] [address] [address] [address] Andrade Alvarado EGFR-AF CAMBODIAN >60 Normal >=[address] [facility] Comment on above: Performed By: #### C MP #### [facility] [address] [address] [address] Andrade Alvarado EGFR-NON AF CAMBODIAN 58 mL/min/1.73m2 Critically low >=60 [facility] Comment on above: Performed By: #### C MP #### [facility] [address] [address] [address] Andrade Alvarado Globulin (S) [Mass/Vol] 3.2 g/dL Normal [facility] Comment on above: Performed By: #### C MP #### [facility] [address] [place] [address] Dr. Andrade Alvarado Glucose [Mass/Vol] 91 mg/dL Normal 74-106 [facility] Comment on above: Performed By: #### C MP #### [facility] [address] [address] [address] Andrade Alvarado Potassium [Moles/Vol] 4.1 mmol/L Normal 3.5-5.1 [facility] Comment on above: Performed By: #### C MP #### [facility] [address] [place] [address] Dr. Andrade Alvarado Protein [Mass/Vol] 7.4 g/dL Normal 6.4-8.2 [facility] Comment on above: Performed By: #### C MP #### [facility] [address] [place] [address] Dr. Andrade Alvarado Sodium [Moles/Vol] 143 mmol/L Normal 136-145 [facility] Comment on above: Performed By: #### C MP #### [facility] [address] [place] [address] Dr. Andrade Alvarado Urea nitrogen [Mass/Vol] 18.0 mg/dL Normal 7.0-18.0 [facility] Comment on above: Performed By: #### C MP #### [facility] [address] [place] [address] Dr. Andrade Alvarado Urea nitrogen/Creatinine [Mass ratio] 18.6 mg/mg Normal [facility] Comment on above: Performed By: #### C MP #### [facility] [address] [place] [address] Dr. Andrade Alvarado SED RATE [facility] 2021 SED RATE 15 mm/hr Normal <=30 [facility] Comment on above: Performed By: #### S EDR #### [facility] [address] [place] [address] Dr. Andrade Alvarado KNEE LEFT 3 [facility] 04-25-2020 KNEE LEFT 3 [facility] Department of Radiology [address] [place] [address] Patient Name: RADHA ZAIDI : 1960 Sex: F Age: Race: White Pt. 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 Electronically signed: Eliezer Cam. Transcribed by: [email or web address], User Resident: Electronically Signed by: ELIEZER CAM @ 04/25/2020 11:44 AM Normal [facility] Comment on above: Order Comment: Evalu ate TIBIA FIBULA LEFTon 03-27-20 20 TIBIA FIBULA LEFT [facility] Department of Radiology [address] [place] [id number] Patient Name: RADHA ZAIDI : 1960 Sex: F Age: Race: White Pt. Location: Patient Status: Ordered Date: 03/27/2020 8:05:00 AM Completed Date: 03/27/2020 08:35 AM Requesting Provider: CHARLI LUKE Attending Provider: Report Copy To: Signs & Symptoms: S82.832A Oth fracture of upper and lower end of left fibula, init I10 History: [place] Comments: , , , Ordering Provider - [...] healing Electronically signed: Crissy Dubon. Transcribed by: [email or web address], User Resident: Electronically Signed by: CRISSY DUBON @ 03/27/2020 09:11 AM Normal [facility] Comment on above: Order Comment: Evalu ate Operative Reporton 0 Operative Report MR#: [id number] [facility] Pt. Name: Radha Zaidi Room #: 0C [...] were bluntly retracted. We then used a [place] as well as a hemostat to debride [...] Paniagua MD Date Trans: 03/13/2020 02:26 A/bryson [id number] cc: John Ashby D.O. [address] [place] [id number] Adkins [facility] KNEE LEFT 1 OR 2 [facility] 03-12 KNEE LEFT 1 OR 2 [facility] Department of Radiology [address] [place] [address] Patient Name: RADHA ZAIDI : [...] GRAFT Exam: KNEE LEFT 1 OR 2 [facility] Intraoperative fluoroscopic guidance HISTORY: Fracture fixation. COMPARISON: 02/04/2020 radiographs. IMPRESSION: 1. There are 3 images, total time of 2.6 minutes. 2. Hardware projects over the proximal fibular shaft fracture. Electronically signed: Rahul James. Transcribed by: [email or web address], User Resident: Electronically Signed by: RAHUL JAMES @ 03/12/2020 03:20 PM Normal [facility] Comment on above: Order Comment: Evalu ate POC GLUCOSE LABon 03-12-2020 Glucose [Mass/Vol] 103 mg/dL High 70-100 [facility] Comment on above: Performed By: #### 8 [id number] ####[facility] [facility].[address] *MRSA/MSSA DNA NASALon 03-08 *MRSA/MSSA DNA NASAL Clinical Report: (D) Specimen: NASAL SWAB Collected: 03/08/2020 14:02 Status: Final Last Updated: 03/09/2020 09:30 MSSA DNA (Final) Negative MRSA DNA (Final) Negative Normal [facility] Comment on above: Performed By: #### 3 1595 ####[facility] *SARS-CoV-2 COVID-19on 03-08 [id number] Not Detected Normal Not Detected [facility] Comment on above: Order Comment: The A ptima SARS-CoV-2 assay is a nucleic acid amplification test intended for the qualitative detection of RNA from SARS-CoV-2 isolated and purified from nasopharyngeal (CORROSION CONTROL ENGINEER),oropharyngeal (OP), nasal swab, sputum, and bronchoalveolar lavage (BAL) specimens from patients with signs and symptoms of infection who are suspected of COVID-19. Results are for the identification of SARS-CoV-2 RNA. The SARS-CoV-2 RNA is generally detectable during the acute phase of infection. The Aptima SARS-CoV-2 Assay on the [employer] and [employer] system is intended for use by laboratory personnel specifically instructed and trained in the operation of the [place] [employer] [place] [employer] system. The Aptima SARS-CoV-2 assay is [...] information. Performed By: #### 3 1792 #### [facility] [address] APTTon 03-08-2020 aPTT Coag (Bld) [Time] 26.9 s Normal 25.0-35.0 [facility] Comment on above: Result Comment: ALL RESULTS [...] THIS PURPOSE. Performed By: #### 5 6101, 720[address] ####[facility] [facility] [place] [place] [address], [facility] BASIC METABOLIC PANELon 02-09 Calcium [Mass/Vol] 9.7 mg/dL Normal 8.6-10.3 [facility] Comment on above: Performed By: #### 0 0071 #### [facility] [address] [place] [address], [facility] Chloride [Moles/Vol] 103 mmol/L Normal 98-107 [facility] Comment on above: Performed By: #### 0 0071 #### [facility] [address] [place] [address], [facility] CO2 [Moles/Vol] 31 mmol/L Normal 21-31 [facility] Comment on above: Performed By: #### 0 0071 #### [facility] [address] [place] [address], [place] Creatinine [Mass/Vol] 0.87 mg/dL Normal 0.60-1.20 [facility] Comment on above: Performed By: #### 0 0071 #### [facility] [address] [place] [address], [place] GFR/1.73 sq M predicted among blacks MDRD (S/P/Bld) [Vol rate/Area] mL/min/{1.73_m2} Normal >60 [facility] Comment on above: Performed By: #### 0 0071 #### [facility] [address] [place] [address], [place] GFR/1.73 sq M predicted among non-blacks MDRD (S/P/Bld) [Vol rate/Area] mL/min/{1.73_m2} Normal >60 [facility] Comment on above: Performed By: #### 0 0071 #### [facility] [address] [place] [address], [place] Glucose [Mass/Vol] 106 mg/dL High 70-100 [facility] Comment on above: Performed By: #### 0 0071 #### [facility] [address] [place] [address], [place] Potassium [Moles/Vol] 4.3 mmol/L Normal 3.5-5.1 [facility] Comment on above: Performed By: #### 0 0071 #### [facility] [address] [place] [address], [place] Sodium [Moles/Vol] 141 mmol/L Normal 136-145 [facility] Comment on above: Performed By: #### 0 0071 #### [facility] [address] [place] [address], [place] Urea nitrogen [Mass/Vol] 14 mg/dL Normal 7-25 [facility] Comment on above: Performed By: #### 0 0071 #### [facility] [address] [facility] [place] [place] [address], [facility] CBC W/DIFFon 03-08-2020 ABS BASOPHILS 0.1 10*3/uL Normal 0.0-0.2 [facility] Comment on above: Performed By: #### 5 0103 ####[facility] [facility].[address] ABS IMM GRANS 0.0 10*3/uL Normal 0.0-0.2 [facility] Comment on above: Performed By: #### 5 0103 ####[facility] ABS NEUTROPHILS 3.4 10*3/uL Normal 1.6-7.6 [facility] Comment on above: Performed By: #### 5 0103 ####[facility] Basophils/100 WBC (Bld) 0.8 % Normal 0.0-1.0 [facility] Comment on above: Performed By: #### 5 0103 ####[facility] Eosinophils (Bld) [#/Vol] 0.7 10*3/uL High 0.0-0.5 [facility] Comment on above: Performed By: #### 5 0103 ####[facility] Eosinophils/100 WBC (Bld) 9.5 % High 0.0-6.0 [facility] Comment on above: Performed By: #### 5 0103 ####[facility] Erythrocyte distribution width (RBC) [Ratio] 13.6 % Normal 11.5-15.0 [facility] Comment on above: Performed By: #### 5 0103 ####[facility] [facility].[address] Hematocrit (Bld) [Volume fraction] 42.5 % Normal 36.0-45.0 [facility] Comment on above: Performed By: #### 3 ####[facility] [facility].[address] Hemoglobin (Bld) [Mass/Vol] 13.7 g/dL Normal 12.0-15.0 [facility] Comment on above: Performed By: #### 3 ####[facility] IMMATURE GRANS 0.3 % Normal 0.0-1.0 [facility] Comment on above: Performed By: #### 3 ####[address] Lymphocytes (Bld) [#/Vol] 2.7 10*3/uL Normal 1.2-4.0 [facility] Comment on above: Performed By: #### 3 ####[place] [id number] [address] Lymphocytes/100 WBC (Bld) 35.1 % Normal 20.0-45.0 [facility] Comment on above: Performed By: #### 3 ####[facility] MCH (RBC) [Entitic mass] 31.2 pg Normal 27.0-33.0 [facility] Comment on above: Performed By: #### 3 ####[facility] [place] [address] MCHC (RBC) [Mass/Vol] 32.2 g/dL Normal 32.0-35.0 [facility] Comment on above: Performed By: #### 3 ####[facility] MCV (RBC) [Entitic vol] 96.8 fL Normal 82.0-98.0 [facility] Comment on above: Performed By: #### 102 ####[facility] Monocytes (Bld) [#/Vol] 0.8 10*3/uL Normal 0.1-1.0 [facility] Comment on above: Performed By: #### 102 ####[facility] MONOS 9.8 % Normal 5.0-12.0 [facility] Comment on above: Performed By: #### 102 ####[facility] Neutrophils/100 WBC (Bld) 44.5 % Normal 40.0-72.0 [facility] Comment on above: Performed By: #### 102 ####[facility] Nucleated RBC/100 WBC (Bld) [Ratio] 0 % Normal 0-0 [facility] Center Comment on above: Performed By: #### 102 ####[facility] PLAT CNT 230 10*3/uL Normal 150-400 [facility] Comment on above: Performed By: #### 102 ####[facility] RBC (Bld) [#/Vol] 4.39 10*6/uL Normal 3.80-5.00 [facility] Comment on above: Performed By: #### 5 0103 ####[facility] WBC (Bld) [#/Vol] 7.72 10*3/uL Normal 4.00-10.60 [facility] Comment on above: Performed By: #### 5 0103 ####[facility] PROTHROMBIN TIMEon 0 INR Coag (PPP) [Relative time] 0.99 {INR} Normal 0.91-1.16 [facility] Comment on above: Result Comment: ACCC P RECOMMENDED INR FOR WARFARIN THERAPY ------ ------- CONDITION INR PROPHYLAXIS OF VENOUS THROMBOSIS 2-3 (HIGH-RISK SURGERY) TREATMENT OF VENOUS THROMBOSIS 2-3 TREATMENT OF PULMONARY EMBOLISM 2-3 PREVENTION OF SYSTEMIC EMBOLISM: 2-3 ACUTE MYOCARDIAL INFARCTION TISSUE HEART VALVES VALVULAR HEART DISEASE ATRIAL FIBRILLATION RECURRENT SYSTEMIC EMBOLISM MECHANICAL HEART VALVE 2.5-3.5 FROM: ORAL ANTICOAGULANTS. MECHANISM OF ACTION, CLINICAL EFFECTIVENESS, AND OPTIMAL THERAPEUTIC RANGE. CHEST 1995;108:231S-246S. Performed By: #### 5 6101, 01862 #### [facility] [address] [facility] [place] [address], [facility] PT Coag (PPP) [Time] 13.1 s Normal 12.3-14.8 [facility] Comment on above: Result Comment: ALL RESULTS MUST BE INTERPRETED WITH RESPECT TO BLOOD DRAWING ARTIFACT OR DILUTION ERROR OF ANTICOAGULANT AT THE TIME OF SAMPLING. Performed By: #### 5 6101, 71981 #### [facility] [address] [place] [address], [facility] ALBUMIN BLOODon 02-04-2020 Albumin [Mass/Vol] 4.5 g/dL Normal 3.5-5.7 [facility] Comment on above: Performed By: #### 3 0728, 94250, 29263, 64105, 20969 #### [facility] [address] [place] [address], [place] BASIC METABOLIC PANELon 01-09 Calcium [Mass/Vol] 9.5 mg/dL Normal 8.6-10.3 [facility] Comment on above: Performed By: #### 3 0728, 52626, 08174, 59169, 93530 #### [facility] [address] [place] [address], [place] Chloride [Moles/Vol] 105 mmol/L Normal 98-107 [facility] Comment on above: Performed By: #### 3 0728, 34127, 85203, 83948, 75723 #### [facility] [address] [place] [address], [place] CO2 [Moles/Vol] 27 mmol/L Normal 21-31 [facility] Comment on above: Performed By: #### 3 0728, 45882, 28194, 98592, 80247 #### [facility] [address] [place] [address], [place] Creatinine [Mass/Vol] 0.81 mg/dL Normal 0.60-1.20 [facility] Comment on above: Performed By: #### 3 0728, 59043, 61315, 84653, 78352 #### [facility] [address] [place] [address], [place] GFR/1.73 sq M predicted among blacks MDRD (S/P/Bld) [Vol rate/Area] mL/min/{1.73_m2} Normal >60 [facility] Comment on above: Performed By: #### 3 0728, 81153, 79065, 94347, 52832 #### [facility] [address] [place] [id number], [facility] GFR/1.73 sq M predicted among non-blacks MDRD (S/P/Bld) [Vol rate/Area] mL/min/{1.73_m2} Normal >60 [facility] Comment on above: Performed By: #### 3 0728, 94518, 96202, 53519, 31155 #### [facility] [address] [place] [address], [facility] Glucose [Mass/Vol] 115 mg/dL High 70-100 [facility] Comment on above: Performed By: #### 3 0728, 73394, 44721, 32824, 50657 #### [facility] [address] [place] [address], [facility] Potassium [Moles/Vol] 3.9 mmol/L Normal 3.5-5.1 [facility] Comment on above: Performed By: #### 3 0728, 19732, 10617, 31540, 62923 #### [facility] [address] [place] [address], [place] Sodium [Moles/Vol] 140 mmol/L Normal 136-145 [facility] Comment on above: Performed By: #### 3 0728, 14875, 42287, 65391, 73359 #### [facility] [address] [place] [id number], [facility] Urea nitrogen [Mass/Vol] 20 mg/dL Normal 7-25 [facility] Comment on above: Performed By: #### 3 0728, 33963, 86140, 73192, 35063 #### [facility] [address] [place] [address], [place] PREALBUMINon 02-04-2020 Prealbumin [Mass/Vol] 24.0 mg/dL Normal 17.0-34.0 [facility] Comment on above: Performed By: #### 3 0728, 86442, 35034, 92816, 74748 #### [id number] [place] [address] TIBIA FIBULA LEFTon 02-04-20 20 TIBIA FIBULA LEFT [facility] Department of Radiology [address] [place] [id number] Patient Name: RADHA ZAIDI : 1960 [...] indicated. Electronically signed: Eliezer Randolph. Transcribed by: [email or web address], User Resident: Electronically Signed by: ELIEZER RANDOLPH @ 02/04/2020 10:34 AM Normal [facility] TRANSFERRINon 02-04-2020 Transferrin [Mass/Vol] 270 mg/dL Normal 203-362 [facility] Comment on above: Performed By: #### 3 0728, 83188, 52055, 13067, 76927 #### [facility] [address] [facility]. [address] VITAMIN D 25-HYDROXYon 02-03 VITAMIN D 25-OH 38.5 ng/mL Normal 30.0-80.0 [facility] Comment on above: Result Comment: >80. 0 Toxicity possible Performed By: #### 3 0728, 41920, 32859, 98069, 00535 #### [facility] [address] [facility] [place], [place] [id number] [place] [address] 07-06-2018 L ------- Specimen: [id number] Received: 07/06/18 Status: JONI Lazaro Num: [id number] Spec Type: Surgical Subm Dr: Tash Resendez MD Tissues: A Finger - Amputation, Non-traumatic (LT SMALL FINGER) Procedures: HE Stain/2, Gross/Micro L4, Decal Patient Age/Sex Location Account Attending Physician Radha Zaidi 58/F [place] [id number] Tash Resendez MD SPEC NUM: [id number] RECD: 07/06/18 STATUS: JONI LAZARO NUM: [id number] RUSS: 07/06/18 DR: Tash Resendez MD ENTERED: 07/06/18 [facility] DR: JULIUS TYPE: Surgical DEPT: S ORDERED: [...] reveals yellow, viable appearing bony cut surfaces. [employer] sections are submitted in two cassettes, decal. (ENRIKE/NAA/lina) Specimen: [id number] Received: 07/06/18 Status: JONI Leti Num: [id number] Spec Type: Surgical Subm Dr: Tash Resendez MD Tissues: A Finger - Amputation, Non-traumatic (LT SMALL FINGER) Procedures: HE Stain/2, Gross/Micro L4, Decal Patient: Radha Zaidi [id number] (Continued) Specimen: [id number] Received: 07/06/18 (Continued) Signed (signature on file) Harsh Jo MD 08/14/18 1503 Specimen: [id number] Received: 07/06/18 Status: JONI Lazaro Num: [id number] Spec Type: Surgical Subm Dr: Tash Resendez MD Tissues: A Finger - Amputation, Non-traumatic (LT SMALL FINGER) Procedures: HE Stain/2, Gross/Micro L4, Decal Patient: DyanRadha J [id number] (Continued) Specimen: [id number] Received: 07/06/18 (Continued) Microscopic Two glass slides with H E stained material have been examined. The microscopic findings support the above pathologic diagnosis. [id number], [id number] A. - - LT SMALL FINGER Specimen: [id number] Received: 07/06/18 Status: JONI Lazaro Num: [id number] Spec Type: Surgical Subm Dr: Tash Resendez MD Tissues: A Finger - Amputation, Non-traumatic (LT SMALL FINGER) Procedures: HE Stain/2, Gross/Micro L4, Decal Patient: Radha Zaidi [id number] (Continued) Signed (signature on file) Harsh Jo MD 08/14/18 1503 [facility] FLUORO FOR SURGICAL PROCEDUR ESon 10-20-2017 FLUORO FOR SURGICAL PROCEDURES Exam: FLUORO FOR SURGICAL PROCEDURESHistory: ACDF Fusion Findings: Fluoroscopy time was 70 seconds A total of 19 fluoroscopic images were obtained by Dr. Cheng during the anterior cervical discectomy in the lower cervical spine.IMPRESSION: Impression: Fluoroscopic assistance provided for operative guidance.Interpreted by:DIANA Lealigned by:Eugene Cancino MD4/12/18Final result Normal [facility] Basic Metabolic Panelon 04-0 Anion gap 15 mmol/L Critically high 7-13 [facility] Calcium 9.6 mg/dL Normal 8.6-10.2 [facility] Chloride 102 mmol/L Normal 98-107 [facility] CO2 23 mmol/L Normal 22-29 [facility] Creatinine 0.54 mg/dL Normal 0.50-0.90 [facility] eGFR (black) mL/min/{1.73_m2} Normal >60 [facility] Comment on above: Result Comment: >60 mL/min/1.73m2 EGFR, calc. for ages 18 and older using theMDRD formula (not corrected for weight), is valid for stablerenal function. eGFR (MDRD) mL/min/{1.73_m2} Normal >60 [facility] Comment on above: Result Comment: >60 mL/min/1.73m2 EGFR, calc. for ages 18 and older using theMDRD formula (not corrected for weight), is valid for stablerenal function. Glucose mass conc 97 mg/dL Normal 74-109 [facility] Potassium molar conc 4.8 mmol/L Normal 3.5-5.1 [facility] Sodium 140 mmol/L Normal 132-144 [facility] Urea nitrogen 14 mg/dL Normal 6-20 [facility] CBC With Platelet No Differe ntialon 10-13-2017 Erythrocyte distribution width Auto Ratio (RBC) 13.3 % Normal 11.5-14.5 [facility] Erythrocytes (RBC) 4.96 10*6/uL Normal 4.20-5.40 [facility] Hematocrit (HCT) 47.1 % Critically high 37.0-47.0 [facility] Hemoglobin mass conc (Bld) 16.2 g/dL Critically high 12.0-16.0 [facility] MCH 32.7 pg Critically high 27.0-31.3 [facility] MCHC mass conc (RBC) 34.4 % Normal 33.0-37.0 [facility] MCV 95.0 fL Normal 82.0-100.0 [facility] Platelets 223 10*3/uL Normal 130-400 [facility] WBC (Leukocytes) 6.2 10*3/uL Normal 4.8-10.8 [facility] Culture, MRSA Screenon 10-13 Culture, MRSA Screen ORDERED BY: VITO STALLWORTH: Nares Nose COLLECTED: 10/13/17 13:18ANTIBIOTICS AT [facility].: RECEIVED : 10/13/17 13:18Culture, MRSA Screen FINAL 10/14/17 13:59 No MRSA isolated Normal [facility] Partial Thromboplastin Timeo n 10-13-2017 aPTT 22.9 s Normal 21.6-35.4 [facility] Comment on above: Result Comment: Hepa rin Therapeutic Range: 38.8 - 54.6 seconds. Prothrombin Timeon 8 INR Coag RelTime (PPP) 1.0 {INR} Normal [facility] Comment on above: Result Comment: Kashif mmended [...] Coag time (PPP) 10.0 s Normal 8.1-13.7 [facility] Type and Screen Capture 3 sc rn cellon 10-13-2017 Bilirubin (total) PATIENT: DYAN HERNANDES LOC: [facility] BILL# : [id number] : 1960 SEX: FORDERED BY: BASIM CHENG ORDERED : 10/13/2017 12:41 COLLECTED: 10/13/2017 13:24ORDER : [id number] RECEIVED : 10/13/2017 13:24 --TEST NAME RESULT UNITS RANGES ABN FL STABORH Capture A POS FAntibody 3 Cell Scrn Captu NEG F Normal [facility] Urinalysis, reflex to cultur gabbie 10-13-2017 Bilirubin Ql (U) Negative Normal Negative [facility] Urine Reflexed to Culture Not Indicated Normal [facility] Urine, clarity Clear Normal Clear [facility] Urine, color Yellow Normal Straw/[place] [facility] Urine, glucose presence Negative Normal Negative [facility] Urine, hemoglobin presence Negative Normal Negative [facility] Urine, ketones presence Negative Normal Negative [facility] Urine, leukocyte esterase presence Negative Normal Negative [facility] Urine, nitrite presence Negative Normal Negative [facility] Urine, pH 5.5 [pH] Normal 5.0-9.0 [facility] Urine, protein presence Negative Normal Negative [facility] Urine, specific gravity 1.018 Normal 1.005-1.03 [facility] Urine, urobilinogen 0.2 {Rajwinder'U}/dL Normal < 2.0 [facility] Vital Signs Date Time Vital Sign Value Performing Clinician Facility 03-27-2024 16:24-0400 Body height 165.[address] [facility] 03-27-2024 16:24-0400 Body mass index (BMI) [Ratio] 23.9 kg/m2 [facility] 03-27-2024 16:24-0400 Body weight 65.[address] [facility] 03-27-2024 16:24-0400 Diastolic blood pressure 76 mm[Hg] [facility] 03-27-2024 16:24-0400 Heart rate 87 /min [facility] 03-27-2024 16:24-0400 Respiratory rate 12 /min [facility] 03-27-2024 16:24-0400 Systolic blood pressure 126 mm[Hg] [facility] 03-19-2024 12:28-0400 Diastolic blood pressure 71 mm[Hg] Jordan [facility] 03-19-2024 12:28-0400 Systolic blood pressure 126 mm[Hg] [facility] 03-19-2024 12:27-0400 Blood Pressure Location [facility] 03-19-2024 12:27-0400 Body temperature 97.88 [degF] [facility] 03-19-2024 12:27-0400 Diastolic blood pressure 78 mm[Hg] [facility] 03-19-2024 12:27-0400 Heart rate 75 /min [facility] 03-19-2024 12:27-0400 Mean blood pressure 94 mm[Hg] [facility] 03-19-2024 12:27-0400 Respiratory rate 15 /min [facility] 03-19-2024 12:27-0400 SaO2% (BldA) [Mass fraction] 97 % [facility] 03-19-2024 12:27-0400 Systolic blood pressure 127 mm[Hg] [facility] 02-29-2024 09:29-0400 Body height 165.[address] [facility] 02-29-2024 09:29-0400 Body mass index (BMI) [Ratio] 24.1 kg/m2 [facility] 02-29-2024 09:29-0400 Body weight 65.[address] [facility] 02-29-2024 09:29-0400 Diastolic blood pressure 81 mm[Hg] [facility] 02-29-2024 09:29-0400 Heart rate 74 /min [facility] 02-29-2024 09:29-0400 Respiratory rate 12 /min [facility] 02-29-2024 09:29-0400 Systolic blood pressure 129 mm[Hg] [facility] 12-28-2023 15:31-0400 Body height 165.[address] [facility] 12-28-2023 15:31-0400 Body mass index (BMI) [Ratio] 25.7 kg/m2 [facility] 12-28-2023 15:31-0400 Body weight 70.[address] [facility] 12-28-2023 15:31-0400 Diastolic blood pressure 75 mm[Hg] [facility] 12-28-2023 15:31-0400 Heart rate 92 /min [facility] 12-28-2023 15:31-0400 Respiratory rate 12 /min [facility] 12-28-2023 15:31-0400 Systolic blood pressure 112 mm[Hg] [facility] 11-15-2023 15:42-0400 Body height 162.6 cm Jordan [facility] Work Phone: [facility] 11-15-2023 15:42-0400 Body mass index (BMI) [Ratio] 28.15 kg/m2 [facility] Work Phone: [facility] 11-15-2023 15:42-0400 Body weight 74.39 kg Jordan [facility] Work Phone: [facility] 09-28-2023 15:16-0400 Body height 165.[address] [facility] 09-28-2023 15:16-0400 Body mass index (BMI) [Ratio] 27.8 kg/m2 [facility] 09-28-2023 15:16-0400 Body weight 75.[address] [facility] 09-28-2023 15:16-0400 Diastolic blood pressure 68 mm[Hg] [facility] 09-28-2023 15:16-0400 Heart rate 80 /min [facility] 09-28-2023 15:16-0400 Respiratory rate 12 /min [facility] 09-28-2023 15:16-0400 Systolic blood pressure 130 mm[Hg] [facility] 09-05-2023 21:48-0500 Body height 166.37 cm John Ball Other [employer] [facility] [employer] Other 09-05-2023 16:33-0500 Body height 165.[address] [facility] 09-05-2023 16:33-0500 Body mass index (BMI) [Ratio] 28.5 kg/m2 [facility] 09-05-2023 16:33-0500 Body weight 77.[address] [facility] 09-05-2023 16:33-0500 Diastolic blood pressure 69 mm[Hg] [facility] 09-05-2023 16:33-0500 Heart rate 97 /min [facility] 09-05-2023 16:33-0500 Systolic blood pressure 115 mm[Hg] [facility] 08-18-2023 15:40-0500 Body height 162.6 cm Jordan Embarr [facility]s Work Phone: [facility] 08-18-2023 15:40-0500 Body mass index (BMI) [Ratio] 28.15 kg/m2 [facility] Work Phone: [facility] 08-18-2023 15:40-0500 Body temperature 97.11 [degF] [facility] Work Phone: [facility] 08-18-2023 15:40-0500 Body weight 74.39 kg [facility] Work Phone: [facility] [employer] 08-17-2023 15:00-0500 Body height 166.37 cm John Ball Other [employer] Other 08-17-2023 15:00-0500 Body mass index (BMI) [Ratio] 28.12 kg/m2 John Ball Other [employer] Other 08-17-2023 15:00-0500 Body weight 77.84 kg John Ball Other [employer] Other 08-17-2023 15:00-0500 Diastolic blood pressure 79 mm[Hg] John Ball Other [employer] Other 08-17-2023 15:00-0500 Respiratory rate 12 /min John Ball Other [employer] Other 08-17-2023 15:00-0500 Systolic blood pressure 126 mm[Hg] John Ball Other [employer] Other 04-07-2023 14:00-0400 Body temperature 97.52 [degF] Jordan [facility] 04-07-2023 14:00-0400 Diastolic blood pressure 63 mm[Hg] Jordan [facility] 04-07-2023 14:00-0400 Heart rate 88 /min Jordan [facility] 04-07-2023 14:00-0400 Mean blood pressure 76 mm[Hg] Jordan [facility] 04-07-2023 14:00-0400 SaO2% (BldA) [Mass fraction] 94 % Jordan [facility] 04-07-2023 14:00-0400 Systolic blood pressure 101 mm[Hg] Jordan [facility] 04-07-2023 08:47-0400 Diastolic blood pressure 75 mm[Hg] Jordan [facility] 04-07-2023 08:47-0400 Systolic blood pressure 125 mm[Hg] Jordan [facility] 04-07-2023 07:45-0400 Blood Pressure Location Jordan [facility] 04-07-2023 07:45-0400 Body temperature 97.88 [degF] [facility] 04-07-2023 07:45-0400 Diastolic blood pressure 75 mm[Hg] [facility] 04-07-2023 07:45-0400 Heart rate 72 /min [facility] 04-07-2023 07:45-0400 Hourly Rounding [facility] 04-07-2023 07:45-0400 Mean blood pressure 92 mm[Hg] [facility] 04-07-2023 07:45-0400 Promise to Return [facility] 04-07-2023 07:45-0400 Respiratory rate 16 /min [facility] 04-07-2023 07:45-0400 SaO2% (BldA) [Mass fraction] 96 % [facility] 04-07-2023 07:45-0400 Systolic blood pressure 125 mm[Hg] [facility] 04-07-2023 06:17-0400 Hourly Rounding [facility] 04-07-2023 06:17-0400 Promise to Return [facility] 04-07-2023 05:05-0400 Hourly Rounding [facility] 04-07-2023 05:05-0400 Promise to Return [facility] 04-06-2023 22:20-0400 Blood Pressure Location [facility] 04-06-2023 22:20-0400 Body temperature 98.24 [degF] [facility] 04-06-2023 22:20-0400 Heart rate 74 /min [facility] 04-06-2023 22:20-0400 Mean blood pressure 78 mm[Hg] [facility] 04-06-2023 22:20-0400 Respiratory rate 16 /min [facility] 04-06-2023 22:20-0400 SaO2% (BldA) [Mass fraction] 93 % [facility] 04-06-2023 20:10-0400 Heart rate 65 /min [facility] 04-06-2023 20:01-0400 Body temperature 97.34 [degF] [facility] 04-06-2023 20:00-0400 Mean blood pressure 86 mm[Hg] [facility] 04-06-2023 16:17-0400 Mean blood pressure 97 mm[Hg] [facility] 04-06-2023 16:16-0400 Body temperature 97.52 [degF] [facility] 04-06-2023 13:49-0400 Mean blood pressure 88 mm[Hg] [facility] 04-06-2023 12:45-0400 Respiratory rate 13 /min Jordan [facility] 04-06-2023 12:35-0400 Respiratory rate 10 /min [facility] 04-06-2023 12:20-0400 Respiratory rate 17 /min [facility] 04-06-2023 11:37-0400 Body temperature 96.98 [degF] [facility] 04-06-2023 06:39-0400 Heart rate 68 /min [facility] 03-24-2023 14:52-0400 Diastolic blood pressure 76 mm[Hg] Jordan [facility] 03-24-2023 14:52-0400 Heart rate 67 /min [facility] 03-24-2023 14:52-0400 Mean blood pressure 99 mm[Hg] [facility] 03-24-2023 14:52-0400 Systolic blood pressure 144 mm[Hg] [facility] 03-24-2023 14:52-0400 Heart rate 68 /min Jordan [facility] 03-24-2023 14:52-0400 SaO2% (BldA) [Mass fraction] 99 % [facility] 03-24-2023 14:52-0400 Diastolic blood pressure 75 mm[Hg] Jordan [facility] 03-24-2023 14:52-0400 Mean blood pressure 93 mm[Hg] Jordan [facility] 03-24-2023 14:52-0400 Systolic blood pressure 128 mm[Hg] [facility] 03-24-2023 14:51-0400 Respiratory rate 16 /min [facility] 01-10-2023 15:00-0400 Body height 166.37 cm John Ball Other [place] [employer] Other 01-10-2023 15:00-0400 Body mass index (BMI) [Ratio] 27.04 kg/m2 John Ball Other [facility] [employer] Other 01-10-2023 15:00-0400 Body weight 74.84 kg John Ball Other [employer] Other 01-10-2023 15:00-0400 Diastolic blood pressure 86 mm[Hg] John Ball Other [employer] Other 01-10-2023 15:00-0400 Respiratory rate 12 /min John Ball Other [employer] Other 01-10-2023 15:00-0400 Systolic blood pressure 124 mm[Hg] John Ball Other [employer] Other 12-09-2022 09:00-0400 Body height 166.37 cm John Ball Other [employer] Other 12-09-2022 09:00-0400 Body mass index (BMI) [Ratio] 27.33 kg/m2 John Ball Other [employer] Other 12-09-2022 09:00-0400 Body weight 75.66 kg John Ball Other [employer] Other 12-09-2022 09:00-0400 Diastolic blood pressure 71 mm[Hg] John Ball Other [employer] Other 12-09-2022 09:00-0400 Respiratory rate 12 /min John Ball Other [employer] Other 12-09-2022 09:00-0400 Systolic blood pressure 111 mm[Hg] John Ball Other [employer] Other 11-09-2022 15:00-0400 Body height 166.37 cm John Ball Other [employer] Other 11-09-2022 15:00-0400 Body mass index (BMI) [Ratio] 27.36 kg/m2 John Ball Other [employer] Other 11-09-2022 15:00-0400 Body weight 75.75 kg John Ball Other [employer] Other 11-09-2022 15:00-0400 Diastolic blood pressure 80 mm[Hg] John Ball Other [employer] Other 11-09-2022 15:00-0400 Respiratory rate 12 /min John Ball Other [employer] Other 11-09-2022 15:00-0400 Systolic blood pressure 135 mm[Hg] John Ball Other [employer] Other 07-26-2022 16:30-0500 Body height 166.37 cm John Ball Other [employer] Other 07-26-2022 16:30-0500 Body mass index (BMI) [Ratio] 26.28 kg/m2 John Ball Other [employer] Other 07-26-2022 16:30-0500 Body weight 72.76 kg John Ball Other [employer] Other 07-26-2022 16:30-0500 Diastolic blood pressure 78 mm[Hg] John Ashby Other [employer] Other 07-26-2022 16:30-0500 Respiratory rate 12 /min John Ashby Other [employer] Other 07-26-2022 16:30-0500 Systolic blood pressure 122 mm[Hg] John Ashby Other [employer] Other Encounters Encounter Date Encounter Type Care Provider Facility Start: 04-10-2024 End: 04-10-2024 ambulatory [facility] Work Phone: Start: 04-10-2024 End: 04-10-2024 Patient encounter procedure [facility] Work Phone: Start: 03-30-2024 End: 03-30-2024 ambulatory [facility] Work Phone: Start: 03-30-2024 End: 03-30-2024 Patient encounter procedure [facility] Work Phone: Start: 03-27-2024 End: 03-27-2024 ambulatory [facility] Work Phone: Start: 03-27-2024 End: 03-27-2024 Patient encounter procedure [facility] Work Phone: Start: 03-25-2024 Patient encounter status [facility] [facility] Start: 03-19-2024 End: 03-19-2024 ambulatory Jordan Yuan Facility:[facility] Start: 03-19-2024 End: 03-19-2024 Patient encounter procedure Jordan Yuan [facility] Start: 02-29-2024 End: 02-29-2024 ambulatory [facility] Work Phone: Start: 02-29-2024 End: 02-29-2024 Patient encounter procedure [facility] Work Phone: Start: 02-23-2024 End: 02-23-2024 ambulatory JORDAN YUAN Not Available Start: 02-14-2024 Non-patient / Non-visit [facility] Work Phone: Start: 02-02-2024 Non-patient / Non-visit [facility] Work Phone: Start: 12-28-2023 End: 12-28-2023 ambulatory [facility] Work Phone: Start: 12-28-2023 End: 12-28-2023 Patient encounter procedure [facility] Work Phone: Start: 11-15-2023 End: 11-15-2023 Patient encounter procedure Jordan Yuan DO Work Phone: [facility] Comment on above: Status post shoulder surgery (Primary Dx) Start: 11-15-2023 End: 11-15-2023 ambulatory JORDAN YUAN Not Available Start: 11-04-2023 End: 11-04-[address] [facility] Start: 09-28-2023 End: 09-28-2023 ambulatory [facility] Work Phone: Start: 09-28-2023 End: 09-28-2023 Patient encounter procedure [facility] Work Phone: Start: 09-13-2023 End: 09-13-2023 ambulatory JORDAN YUAN Not Available Start: 09-06-2023 End: 09-06-2023 ambulatory Jordan Yuan Facility:[facility] Start: 09-06-2023 End: 09-06-2023 Patient encounter procedure Jordan Yuan [facility] Start: 09-05-2023 Non-patient / Non-visit [facility] Work Phone: Start: 09-05-2023 End: 09-05-2023 ambulatory John Ashby Other [facility] Other Start: 09-05-2023 Telephone encounter John Ashby [facility] Start: 09-02-2023 Non-patient / Non-visit [facility] Work Phone: Start: 08-30-2023 Non-patient / Non-visit [facility] Work Phone: Start: 08-18-2023 End: 08-18-2023 Patient encounter procedure Jordan Yuan DO Work Phone: [facility] Comment on above: Right shoulder pain, unspecified chronicity (Primary Dx) Start: 08-18-2023 End: 08-18-2023 ambulatory JORDAN YUAN Not Available Start: 08-18-2023 Chart abstracting Jordan do DO Work Phone: [facility] Start: 08-17-2023 End: 08-17-2023 ambulatory John Ashby Other [facility] Other Start: 08-17-2023 Encounter for genera l adult medical examination without abnormal findings John Ashby [facility] Start: 08-17-2023 Periodic preventive med est patient 40-64yrs John Ashby [facility] Start: 07-21-2023 End: 07-21-2023 ambulatory JORDAN YUAN Not Available Start: 07-05-2023 End: 07-05-2023 ambulatory JORDAN YUAN Not Available Start: 06-28-2023 End: 06-28-2023 ambulatory John Ashby Other [facility] Other Start: 06-28-2023 Office outpatient vi sit 15 minutes John Ashby [facility] Start: 05-24-2023 End: 05-24-2023 ambulatory JORDAN YUAN Not Available Start: 05-06-2023 End: 05-06-2023 ambulatory John Ashby Other [facility] Other Start: 05-06-2023 Telephone encounter John Ashby [facility] Start: 04-26-2023 End: 04-26-2023 ambulatory John Ahsby Other [facility] Other Start: 04-26-2023 Telephone encounter John SIMON [facility] Start: 04-06-2023 End: 04-07-2023 Admission to same day surgery center Jordan Yuan [facility] Start: 04-06-2023 End: 04-07-2023 ambulatory Jordan Yuan Facility:[facility] Start: 03-31-2023 End: 03-31-2023 ambulatory John Ashby Other [facility] Other Start: 03-31-2023 Telephone encounter John SIMON [facility] Start: 03-26-2023 End: 03-26-2023 ambulatory John Ashby Other [facility] Other Start: 03-26-2023 Telephone encounter John SIMON [facility] Start: 03-24-2023 End: 03-24-2023 ambulatory Jordan Yuan Facility:[facility] Start: 03-24-2023 End: 03-24-2023 Patient encounter procedure Jordan Yuan [facility] Start: 03-21-2023 End: 03-21-2023 ambulatory John Ashby Other [facility] Other Start: 03-21-2023 Telephone encounter John SIMON [facility] Start: 01-12-2023 End: 01-12-2023 ambulatory John Ashby Other [facility] Other Start: 01-12-2023 Telephone encounter John Ashby [facility] Start: 01-10-2023 End: 01-10-2023 ambulatory John Ashby Other [facility] Other Start: 01-10-2023 Office outpatient vi sit 15 minutes John Ball [facility] Start: 12-14-2022 End: 12-14-2022 ambulatory John Ashby Other [facility] Other Start: 12-14-2022 Telephone encounter John Ashby [facility] Start: 12-10-2022 End: 12-10-2022 ambulatory John Ashby Other [facility] Other Start: 12-10-2022 Telephone encounter John Ashby [facility] Start: 12-09-2022 End: 12-09-2022 ambulatory John Ashby Other [facility] Other Start: 12-09-2022 Office outpatient vi sit 15 minutes John Ball [facility] Start: 11-09-2022 End: 11-09-2022 ambulatory John Ashby Other [facility] Other Start: 11-09-2022 Office outpatient vi sit 15 minutes John Ashby [facility] Start: 10-13-2022 ambulatory NARENDRANATH LAKSHMIPATHY . Facility:[facility] Start: 10-07-2022 End: 10-08-2022 ambulatory NARENDRANATH LAKSHMIPATHY . Facility:[facility] Start: 09-22-2022 End: 09-22-2022 ambulatory John Ashby Other [facility] Other Start: 09-22-2022 Telephone encounter John Ashby [facility] Start: 09-16-2022 End: 09-17-[address] JOHN ASHBY Facility:[facility] Start: 08-14-2022 End: 08-14-2022 ambulatory John Ashby Other [facility] Other Start: 08-14-2022 Telephone encounter John Ashby [facility] Start: 07-26-2022 End: 07-26-2022 ambulatory John Ashby Other [facility] Other Start: 07-26-2022 Office outpatient vi sit 15 minutes [facility] Start: 07-22-2022 Annual wellness visit John Ashby Other [facility] Other Start: 07-22-2022 Patient encounter procedure John Ashby Other [facility] Other Start: 07-09-2022 End: 07-10-[address] JOHN ASHBY Facility:[facility] Start: 06-21-2022 Adult health examination John Ashby Other [facility] Other Start: 06-21-2022 Gynecological examination normal John Ashby Other [facility] Other Start: 2022 End: 06-09-[address] JOHN ASHBY Facility:[facility] Start: 06-01-2022 End: 06-01-[address] JOHN ASHBY Facility:[facility] Start: 05-24-2022 Encounter for genera l adult medical examination without abnormal findings DR JOHN ASHBY [facility] Start: 05-20-2022 End: 05-21-[address] JOHN ASHBY Facility:[facility] Start: 05-20-2022 End: 05-21-2022 Encounter for general adult medical examination without abnormal findings DR JOHN ASHBY Facility:[facility] Start: 05-20-2022 End: 05-21-[address] JOHN AHSBY Facility:[facility] Start: 04-09-2022 ambulatory KATE LAW Facility:[facility] Start: 02-17-2022 End: 02-18-2022 ambulatory JACQUIE OLIVAS . Facility:[facility] Start: 02-16-2022 End: 02-17-[address] SO AMOS . Facility:[facility] Start: 02-02-2022 End: 02-03-[address] SO AMOS . Facility:[facility] Start: 12-24-2021 ambulatory KATE LAW Facility:[facility] Start: 10-22-2021 End: 10-23-2021 ambulatory JACQUIE OLIVAS . Facility: Start: 03-12-2020 End: 03-13-2020 Patient encounter procedure MARYURI ALEXANDER Facility:[facility] Start: 03-05-2020 End: 03-20-2020 Patient encounter procedure MARYURI ALEXANDER Facility:[facility] Start: 10-20-2017 End: 10-21-2017 [facility] Start: 10-13-2017 End: 10-18-2017 Ambulatory BARRY H. BASIM [facility] Procedures Date Procedure Procedure Detail Performing Clinician Start: 11-15-2023 Radex shoulder compl ete minimum 2 views Jordan Yuan DO Work Phone: Start: 08-18-2023 Radex shoulder compl ete minimum 2 views Jordan Yuan DO Work Phone: Start: 04-06-2023 Total shoulder replacement Jordan Yuan Start: 03-12-2020 ANESTH KNEE AREA SURGERY TASH EVANS Start: 03-12-2020 ANTIONE BONE 20 SQ CM/< JG AVENDANOSINAN Start: 03-12-2020 TREATMENT OF FIBULA FRACTURE MARYURI AVENDANOSINAN Start: 10-21-2017 PULSE OXIMETRY, CONTINUOUS BARRY BASIM [...] Jordan Yuan Removal of lung pneumonectomy Jordan Anderson Screening for malign ant neoplasm of breast John Ashby Other Screening mammography [facility] [place] Other Plan of Treatment Date Care Activity Detail Author Start: 05-08-2024 End: 05-08-2024 Patient encounter procedure 05/08/2024 10:45 AM EDT Office Visit [facility] [address] [place] [id number] Jordan Yuan, [address] [address] [facility] Start: 10-04-2023 End: 10-04-2023 Patient encounter procedure 10/04/2023 3:45 PM EDT Office Visit [facility] [address] [place] [address] Jordan Yuan DO [address] [address] [facility] Start: 08-18-2023 End: 08-18-2023 Patient encounter procedure 08/18/2023 3:45 PM EST Office Visit [facility] [address] [place] [address] Jordan Yuan DO [address] [address] [facility] Start: 08-18-2023 End: 08-18-2024 C reactive protein [Mass/volume] in Serum or Plasma C-reactive protein Lab Routine Right shoulder pain, unspecified chronicity Expected: 08/18/2023 (Approximate), Expires: 08/18/2024 [facility] Comment on above: Expected: 08/18/2023 (Approximate), Expires: 08/18/2024 Start: 08-18-2023 End: 08-18-2024 CBC W Auto Differential panel - Blood CBC auto differential Lab Routine Right shoulder pain, unspecified chronicity Expected: 08/18/2023 (Approximate), Expires: 08/18/2024 [facility] Work Phone: Comment on above: Expected: 08/18/2023 (Approximate), Expires: 08/18/2024 Start: 08-18-2023 End: 08-18-2024 Erythrocyte sedimentation rate Sedimentation rate, automated Lab Routine Right shoulder pain, unspecified chronicity Expected: 08/18/2023 (Approximate), Expires: 08/18/2024 [facility] Comment on above: Expected: 08/18/2023 (Approximate), Expires: 08/18/2024 Start: 08-18-2023 End: 08-18-2024 Interleukin-6 Interleukin-6 Lab Routine Right shoulder pain, unspecified chronicity Expected: 08/18/2023 (Approximate), Expires: 08/18/2024 [facility] Comment on above: Expected: 08/18/2023 (Approximate), Expires: 08/18/2024 [facility] Immunizations Immunization Date Immunization Notes Care Provider Angélica kwon 03-22-2012 tetanus and diphther ia toxoids, adsorbed, preservative free, for adult use (5 Lf of tetanus toxoid and 2 Lf of diphtheria toxoid) John Ashby Other [facility] Payers Date Payer Category Payer Unknown [id number] 2021 [facility] [id number] 2020 Medicare MEDICARE MEDICAR E PART B [id number] 2020-[place] [address] Medicare [id number] 2017 Unknown [id number] 1960 Unknown [id number] 2.16.840.1.565161.3.579.2. 647 1960 Unknown [id number] 2.16.840.1.626539.3.579.2. 647 1960 Unknown [id number] 2.16.840.1.435526.3.579.2. 593 1960 Unknown [id number] 2.16.840.1.586726.3.579.2. 593 1960 Unknown [id number] 2.16.840.1.915504.3.579.2. 593 1960 Unknown [id number] 2.16.840.1.148741.3.579.2. 593 1960 Unknown [id number] 2.16.840.1.329174.3.579.2. 593 1960 Unknown [id number] 2.16.840.1.036615.3.579.2. 593 1960 Unknown [id number] 2.16.840.1.516336.3.579.2. 593 1960 Unknown [id number] 2.16.840.1.225208.3.579.2. 593 1960 Unknown [id number] 2.16.840.1.337230.3.579.2. 593 1960 Unknown [id number] 2.16.840.1.614450.3.579.2. 593 1960 Unknown [id number] 2.16.840.1.783219.3.579.2. 593 1960 Unknown [id number] 2.16.840.1.471562.3.579.2. 593 1960 Unknown [id number] 2.16.840.1.715473.3.579.2. 593 1960 Unknown [id number] 2.16.840.1.919127.3.579.2. 593 1960 Unknown [id number] 2.16.840.1.027711.3.579.2. 593 1960 Unknown [id number] 2.16.840.1.325658.3.579.2. 593 1960 Unknown [id number] 2.16.840.1.937779.3.579.2. 593 1960 Unknown [id number] 2.16.840.1.975318.3.579.2. 1259 1960 Unknown [id number] 2.16.840.1.190526.3.579.2. 1259 1960 Unknown [id number] 2.16.840.1.880302.3.579.2. 1259 1960 Unknown [id number] 2.16.840.1.033028.3.579.2. 1259 1960 Unknown [id number] 2.16.840.1.316847.3.579.2. 1259 1960 Unknown [id number] 2.16.840.1.285228.3.579.2. 1259 1960 Unknown [id number] 2.16.840.1.807503.3.579.2. 1259 1960 Unknown [id number] 2.16.840.1.382693.3.579.2. 1259 1960 Unknown [id number] 2.16.840.1.522115.3.579.2. 1259 1960 Unknown [id number] 2.16.840.1.110948.3.579.2. 1259 1960 Unknown [id number] 2.16.840.1.328144.3.579.2. 1259 1960 Unknown [id number] 2.16.840.1.451553.3.579.2. 1259 1960 Unknown [id number] 2.16.840.1.175279.3.579.2. 1259 1960 Unknown [id number] 2.16.840.1.969321.3.579.2. 1259 1960 Unknown [id number] 2.16.840.1.074480.3.579.2. 727 1960 Unknown [id number] 2.16.840.1.907675.3.579.2. 727 1960 Unknown [id number] 2.16.840.1.506629.3.579.2. 727 1960 Unknown [id number] 2.16.840.1.300739.3.579.2. 727 1959 Medicare [id number] 1959 Self-pay 1959 Unknown [id number] 1959 Unknown [id number] Social History Date Type Detail Facility Unknown if ever smoked [facility] Other Start: 07-21-2023 End: 02-23-2024 Sex Assigned At [facility] Tobacco smoking status No Smokin g Status Entered [facility] Start: 07-06-2018 End: 05-24-2023 Tobacco smoking status [facility] Ex-smoker [facility] End: 07-11-1990 History of tobacco use Current smoker [facility] End: 07-11-1990 History of tobacco use Cigarette Smoker [facility] Start: 05-24-2023 Tobacco use and exposure Smokeless tobacco non-user [facility] Start: 07-21-2023 End: 11-15-2023 Alcohol intake Current drinker of alcohol (finding) [facility] Start: 07-21-2023 End: 02-23-2024 History of Social function [facility] How [...] Start: 1960 Sex Assigned At Female F [facility] Average Number of Drinks Not on file [facility] Medical Equipment Procedure Code Equipment Code Equipment Origin al Text Equipment Identifier Dates SHOULDER TOTAL ARTHROPLASTY Orlando Yuan DOson A 04/06/23 Unknown Shoulder R FDA Start: [...] Assessment Result Facility 03-19-2024 Functional Status No [facility] 03-24-2023 Functional Status No [facility] Clinical Notes 05-29-2018 to 11-15-2023 Jordan Yuan - 11/15/2023 3:45 PM EDTKathi Neumann - 08/18/2023 3:45 PM EST Note Date & Type Note Facility 11-15-2023 History of Present illness Narrative Images from the original note were not included. @[email or web address]@ [facility] Levy Zaidi is a 63 y.o. female who presents for Follow-up of the Right Shoulder (R shoulder pain, Rev TSA 04/06/23 poss coracoid an/or accromial fx ma//) HPI: History of Present Illness The patient presents for evaluation of her right shoulder. She is accompanied by an adult male. The patient has yet to procure the bone stimulator due to insurance constraints. She has been wearing her arm sling as instructed. SUBJECTIVE: MEDICATIONS: Current Outpatient Medications Medication Instructions aspirin 81 MG EC tablet 1 tablet, Oral, Daily buPROPion XL (Wellbutrin XL) 300 MG 24 hr tablet citalopram (CeleXA) 10 MG tablet HYDROcodone-acetaminophen (Lomita) 5-325 MG tablet TAKE 1 TABLET BY [...] 2,000 mg, Oral, 2 times daily ALLERGIES: Allergies Allergen Reactions Cephalexin GI intolerance SURGICAL HISTORY: Past Surgical History: Procedure Laterality [...] Types: Cigarettes Quit date: 07/11/1990 Years since quittin.3 Smokeless tobacco: Never Vaping Use Vaping Use: Never used Substance Use Topics Alcohol use: Yes Alcohol/week: 3.0 standard drinks of alcohol Types: 3 Shots of liquor per week Comment: caffiene 1-2 cups daily Drug use: Never Depression: Not on file REVIEW OF SYMPTOMS: Review of Systems The review of systems, history and current medications list are all reviewed today. OBJECTIVE: Visit Vitals Ht 5' 4 Wt 164 lb LMP (LMP Unknown) BMI 28.15 kg/m OB Status Unknown Smoking Status Former BSA 1.83 m Physical Exam Ortho Exam Results Imaging 4 views right shoulder, Grashey/Zanca/outlet/axillary, taken today and saved to the permanent medical record. Prosthesis is unchanged in position and alignment. Fracture at the base of the acromion unchanged in appearance. ASSESSMENT AND PLAN: Assessment & Plan 63 yo RHD female with R acromion fracture s/p R reverse TSA 04/06/23. The patient is advised to acquire the bone stimulator if feasible. She is permitted to spend more time out of the sling, however, it is recommended that she keeps her arm at her side when possible. Follow-up The patient is scheduled for a follow-up visit in 1 month with new xrays. Diagnoses and all orders for this visit: Status post shoulder surgery - XR shoulder 2+ views right Jordan Yuan D.O. Attestation documented in this encounter [facility] 11-04-2023 Note [facility] - [facility] Subjective Radha Zaidi is a [...] In the past she was admitted to [facility] with pneumonia and empyema, underwent [...] mouth if needed., Disp: , Rfl: HYDROcodone-acetaminophen (Lomita) 5-325 mg tablet, TAKE 1 TABLET BY [...] HDL 74. Imagin (more content not included)... 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 She states her hand has improved. She points to the anterior aspect of the shoulder as the location of her discomfort. SUBJECTIVE: MEDICATIONS: Current Outpatient Medications Medication Instructions aspirin 81 MG EC tablet 1 tablet, Oral, Daily buPROPion XL (Wellbutrin XL) 300 MG 24 hr tablet citalopram (CeleXA) 10 MG tablet HYDROcodone-acetaminophen (Lomita) 5-325 MG tablet TAKE 1 TABLET BY [...] Bilateral R - 2000 ; L - 2001 LUMBAR DISCECTOMY 2000 [...] Jordan Yuan D.O. documented in this encounter [facility] 08-17-2023 Evaluation note Encounter Date Diagnosis [...] Symptoms tolerable, continue medical treatment f/u Rheumatology [facility] Other 12-19-2023 Evaluation note* Encounter Date Diagnosis [...] Jun, Immunosuppressed sta tus (ICD-10 - D84.9) [facility] Other 09-28-2023 Evaluation + Plan noteExtracted from: [...] N/V. Hydration status is adequate. Extracted from: Title:rFedi Basic PRE Author:Hill Rai DO Date:04/06/23 Plan [place] [employer]esthesiologists (ASA) physical status classification: Class II. Anesthetic Preoperative Plan: Anesthesia General. [facility] Inter[facility] block. [facility]09-28-2023 Hospital Discharge instructions Patient Education 04/07/2023 07:41:33 Iris Yuan - Shoulder Replacement (Custom) [place], [place] [facility] DISCHARGE INSTRUCTIONS: SHOULDER REPLACEMENT [...] site, or the developmentof persistent vomiting. Jordan Yuan DO [facility] [address] [place] [id number] Reviewed: Follow Up Care 03/09/2023 13:56:15 With:Jordan Yuan Address: [address] [place] [id number] Business (1) When:04/19/2023 14:15:00 With:JOHN ASHBY Address: [address] [place] [phone] Business (1) When: Unknown [facility]09-28-2023 NotePatient: RADHA ZAIDI Age: 62 years [...] 1 tab(s), Oral, Daily, 0 Refill(s)[facility]:Result Comment: Electronically Signed By: Jordan Yuan DO\Mehreenbr\Date and Time Signed: 04/07/23 07:42 [id number]:127 [facility] Evaluation note* Encounter Date Diagnosis Assessment Notes Treatment Notes Treatment Clinical Notes Mar, Major depressive disorder, single episode, 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 Suggested referral to Secretary Administrative Assistant [facility] Other 05-02-2023 Evaluation note* Encounter Date Diagnosis [...] a normal BMI. Monitor BP while taking MyMiniLifeex [facility] Other 03-30-2023 NoteCONSULTATION PROCEDURE DATE: 10/07/2022 PROCEDURE: [...] at least 80% reduction of pain symptoms.[facility] [id number] NoteCONSULTATION CONSULTATION DATE: 10/07/2022 ADDENDUM: On examination of the right shoulder, the patient did have a positive right sided full can test, a positive Neida's test, Apley's test and cross body test. All four positive on examination date 10/07/2022.[facility] [id number] NoteCONSULTATION CONSULTATION DATE: 10/07/2022 TO: John Ashby [...] activity modification, use of Zanaflex, Lyrica and Lomita. RECOMMENDATIONS: I recommend proceeding with a right [...] right shoulder without contrast and physical therapy.[facility] HospitalIiqomlsi24-97-2270 Evaluation note* Encounter Date Diagnosis Assessment Notes Treatment Notes Treatment Clinical Notes Aug, Anemia (ICD-10 - D64.9) [facility] Other 01-16-2023 Evaluation note* Encounter Date Diagnosis [...] Healthy diet, exercise w/o change in treatment [facility] Other 12-30-2022 NoteCONSULTATION PROCEDURE DATE: 07/09/2022 PREOPERATIVE [...] will be followed up in the office.[facility] [id number] NoteCONSULTATION CONSULTATION DATE: 07/09/2022 HISTORY OF PRESENT [...] possible increase in dose. She also takes Lomita 5/325 t.i.d. and Zanaflex 4 mg three [...] three months' time, unless otherwise indicated. [facility] [id number] NoteCONSULTATION CONSULTATION DATE: 05/20/2022 HISTORY OF PRESENT [...] medications include Celexa, Lyrica 50 mg b.i.d., Lomita 5/325 t.i.d. and Zanaflex. Patient is having [...] level of C3-4. We will refill her Lomita at 5/325 t.i.d. Supportive home measures were discussed such as heat and a menthol heat rub, as well as vitamin compliance. The patient agrees to move forward with the plan, will be followed up in the clinic thereafter.[facility] [id number] NoteCONSULTATION PROCEDURE DATE: 02/17/2022 PRE AND POSTOPERATIVE [...] will be followed up in the clinic.[facility] HospitalXxzkdyow43-06-4515 NotePROCEDURE: XR SHOULDER RT 2V or > COMPARISON: None. HISTORY: Pain of right shoulder joint FINDINGS: BONES:No acute fracture or dislocation. Minimal degenerative changes. Cervical fusion hardware SOFT TISSUES:Negative. No visible soft tissue swelling. EFFUSION:None visible. OTHER: Negative. IMPRESSION: No acute abnormality Electronically authenticated by: VANDANA COLLINS Date: 2022-02-16 19:11[facility] [id number] NoteCONSULTATION CONSULTATION DATE: 02/02/2022 CHIEF COMPLAINT: Right [...] aggravates the pain. The patient currently takes Lomita 5/325 t.i.d., wellbutrin 150 mg, Lyrica 50 [...] point tenderness along the right bicipital tendon. Installers Mechanical strength is maintained. IMPRESSION: Current working diagnosis [...] like to proceed. 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 Cold weather and bending bother her as well. Medications include Lyrica 75 mg t.i.d., which she has not been taking for the past two months; Celexa, Lomita 5/325 t.i.d., Zanaflex and RINVOQ. She feels that her pain is managed well with her Lomita, but is concerned about the neuropathic pain [...] in need of a refill for her Lomita today, which we will give 5/325 t.i.d. [...] time unless otherwise indicated. [facility] Signed and Approved by: JACQUIE OLIVAS . 11/12/2021 16:27:00[facility]11-19-2018 Evaluation note* Diagnosis Onset Date Resolution Status PSVT (paroxysmal supraventricular tachycardia) acute Heart failure with improved ejection fraction (HFimpEF) acute Nonischemic cardiomyopathy a cute Orthostatic hypotension May 29, 2018 acute Anemia acute Essential hypertension acute ERICH (generalized anxiety disorder) acute Heart failure with improved ejection fraction (HFimpEF) acute Nonischemic cardiomyopathy a cute Preop exam for internal medicine acute PSVT (paroxysmal supraventricular tachycardia) [facility] Work Phone: [phone]) 203-111711-19-2018 Evaluation note* Diagnosis Onset Date Resolution Status Heart failure with improved ejection fraction (HFimpEF) acute Nonischemic cardiomyopathy a cute Orthostatic hypotension May 29, 2018 acute Anemia acute Essential hypertension acute ERICH (generalized anxiety disorder) acute Heart failure with improved ejection fraction (HFimpEF) acute Nonischemic cardiomyopathy a cute Preop exam for internal medicine acute PSVT (paroxysmal supraventricular tachycardia) acute Rheumatoid arthritis acute [facility] Work Phone: Evaluation + Plan note Future Appointments Appointment Date:04/06/2023 09:30:00 AM Scheduled Provider: [facility] Future Appointments Appointment Date:04/06/2024 12:00:00 PM Scheduled Provider: Location:[facility] Appointment Type:[facility] Evaluation noteNo [employer] [facility] Other Evaluation note* Diagnosis Right shoulder pain, unspecified chronicity- Primary [facility] Diagnosis Onset Date Resolution Status Hypertension acute Overweight acute PSVT (paroxysmal supraventricular tachycardia) acute [facility] Work Phone: Evaluation note* Diagnosis Onset Date Resolution Status Hypertension acute Overweight acute PSVT (paroxysmal supraventricular tachycardia) acute Heart failure with improved ejection fraction (HFimpEF ) acute Nonischemic cardiomyopathy a cute [facility] Work Phone: Evaluation note* Diagnosis Status post shoulder surgery- Primary Other postprocedural status documented in this encounter [facility] [...] Surgical History ORIF, proximal fibula Surgical History [facility] 2011 Surgical History Lumbar fusion Surgical History ACDF C4-6 05/30 Hospitalization History See Above [facility]iiCard Other History general Narrative - Reported* Type [...] Surgical History ORIF, proximal fibula Surgical History [facility] 2011 Surgical History Lumbar fusion Surgical History ACDF C4-6 05/30 Surgical History Right reverse total shoulder ar throplasty 03/2023 Hospitalization History See Above [facility] Other Hospital course Narrative No data available for this section [facility] No data available for this section [facility] No data available for this section [facility] Summary Purpose Family History Relationship Condition [...] with improved ejection fraction (HFimpEF) Nonischemic cardiomyopathy Chief Complaint 3 Month Check up low bp dizzy lighthead discuss testing results/surgery clearance Reason for Visit PSVT (paroxysmal sup raventricular tachycardia) Heart failure with improved ejection fraction (HFimpEF) Nonischemic cardiomyopathy Orthostatic hypotension Anemia Essential hypertension ERICH (generalized anxiety disorder) Heart failure with improved ejection fraction (HFimpEF) Nonischemic cardiomyopathy Preop exam for internal medicine PSVT (paroxysmal supraventricular tachycardia) Chief Complaint low bp dizzy lighthe ad discuss testing results/surgery clearance B12 Shot Reason for Visit Heart failure with i mproved ejection fraction (HFimpEF) Nonischemic cardiomyopathy Orthostatic hypotension Anemia Essential hypertension ERICH (generalized anxiety disorder) Heart failure with improved ejection fraction (HFimpEF) Nonischemic cardiomyopathy Preop exam for internal medicine PSVT (paroxysmal supraventricular tachycardia) Rheumatoid arthritis Chief Complaint low bp dizzy lighthe ad discuss testing results/surgery clearance B12 Shot B12 shot Reason for Visit Heart failure with i mproved ejection fraction (HFimpEF) Nonischemic cardiomyopathy Orthostatic hypotension Anemia Essential hypertension ERICH (generalized anxiety disorder) Heart failure with improved ejection fraction (HFimpEF) Nonischemic cardiomyopathy Preop exam for internal medicine PSVT (paroxysmal supraventricular tachycardia) Rheumatoid arthritis Additional Source Comments INFORMATION SOURCE (unrecogn ized section and content) DATE CREATED AUTHOR 12/29/2017 [facility] DATE CREATED AUTHOR AUTHOR'S ORGANIZ ATION 08/29/2018 [facility] DATE CREATED AUTHOR AUTHOR'S ORGANIZ ATION 05/13/2020 [facility] DATE CREATED AUTHOR AUTHOR'S ORGANIZ ATION 10/15/2022 [facility] DATE CREATED AUTHOR AUTHOR'S ORGANIZ ATION 11/07/2023 [facility] DATE CREATED AUTHOR AUTHOR'S ORGANIZ ATION 02/25/2024 [facility] DATE CREATED AUTHOR AUTHOR'S ORGANIZ ATION 03/20/2024 [facility] DATE CREATED AUTHOR AUTHOR'S ORGANIZ ATION 03/26/2024 [facility] REASON FOR VISIT (unrecogniz ed section and content) Reason Comments Follow-up R rev TSA 04/06/23 Reason Comments Follow-up R shoulder pain, Rev TSA 04/06/23 poss coracoid an/or accromial fx ma Patient Care team informatio n (unrecognized section [...] February 29, 2024 End: February 29, 2024 Team Status: Inactive Member Role Status Dates John Ashby DO Primary Care Provide r, Attending Provider Active Start: March 27, 2024 End: March 27, 2024 Team Status: Inactive Member Role Status Dates John Ashby DO Primary Care Provide r, Attending Provider Active Start: March 30, 2024 End: March 30, 2024 Team Status: Inactive Member Role Status Dates John Ashby DO Primary Care Provide r, Attending Provider Active Start: December 28, 2023 End: December 28, 2023 [employer] Relationship Specialty Start Date End Date John Ashby MD [address] [facility] [place] [id number] PCP - General Internal Medicine 12/23/22 [employer] Relationship Specialty Start Date End Date John Ashby MD [address] [facility] [place] [id number] PCP - General Internal Medicine 12/23/22 Team [...] Care Provide r, Attending Provider Active Start: April 10, 2024 End: April 10, 2024 [employer] Relationship Specialty Start Date End Date John Ashby MD [address] [facility] [place] [id number] PCP - General Internal Medicine 12/23/22 Goals (unrecognized section and content) Goals may [...] BE BASED ON THE PRIMARY CLINICAL RECORDS. [email or web address] [facility]. provides no warranty or guarantee of the accuracy or completeness of information in this document.
[2024-04-21] MEDS: ADACEL DIPH,PERTUSS(ACELL),TET VAC/PF 0.5 ML ADULT SYRINGE IM (17:05)
--- NOTE | 2024-04-22 07:23 | ED_ITS ---
HPI HPI - General Adult General Chief complaint: Skin/Abscess/Foreign Body Stated complaint: LIP Time Seen by Provider: 04/21/24 16:52 Source: patient Mode of arrival: walk-in History of Present Illness HPI narrative: The patient presented to us after she had a fall yesterday apparently she has been having multiple episodes where she gets dizzy and falls and she did had that yesterday and fell on her face, the patient mentioned that this happened almost around 3 AM and she is presenting to us past more than 12 hours after that. The patient last tetanus booster was more than 5 years ago She denies any other injuries There is no loss of consciousness and the patient fell face down The patient mentioned that she was worked up for the dizziness multiple times and it is mostly secondary to medication changes The sole concern for the patient right now is the laceration that she has on her lower lip Related Data Home Medications ?Medication ?Instructions ?Recorded ?Confirmed bupropion HCl 150 mg tablet,12 hr 150 mg PO DAILY 12/15/22 12/15/22 sustained-release (Wellbutrin SR) calcium PO .qd 12/15/22 citalopram 20 mg tablet (Celexa) 20 mg PO DAILY 12/15/22 12/15/22 leflunomide 10 mg tablet (Arava) 10 mg PO DAILY 12/15/22 12/15/22 lisinopril 5 mg tablet 5 mg PO DAILY 12/15/22 12/15/22 metoprolol succinate 25 mg 25 mg PO DAILY 12/15/22 12/15/22 tablet,extended release 24 hr (Toprol XL) upadacitinib 15 mg tablet,extended 15 mg PO DAILY 12/15/22 12/15/22 release 24 hr (Rinvoq) Previous Rx's ?Medication ?Instructions ?Recorded naloxone 4 mg/actuation nasal 4 mg intranasal Q3M PRN opioid 03/16/23 spray (Narcan) overdose #2 ea oxycodone-acetaminophen 5 mg-325 1 tab PO TID PRN pain #63 tabs 03/16/23 mg tablet (Percocet) tizanidine 4 mg tablet (Zanaflex) See Rx Instructions .Route 11/24/23 .COMPLEX PRN muscle spasticity #360 tabs hydrocodone 5 mg-acetaminophen 325 1 tab PO TID PRN pain #90 tabs 07/17/24 mg tablet pregabalin 150 mg capsule (Lyrica) 150 mg PO BID #180 caps 01/25/24 hydrocodone 5 mg-acetaminophen 325 1 tab PO TID PRN pain #90 tabs 02/01/24 mg tablet pregabalin 150 mg capsule (Lyrica) 150 mg PO BID #180 caps 02/01/24 hydrocodone 5 mg-acetaminophen 325 1 tab PO TID PRN pain #90 tabs 02/28/24 mg tablet hydrocodone 5 mg-acetaminophen 325 1 tab PO TID PRN pain #90 tabs 03/29/24 mg tablet amoxicillin 875 mg-potassium 1 tab PO Q12H #14 tabs 04/21/24 clavulanate 125 mg tablet bacitracin 500 unit/gram topical 1 applic topical Q12H #14 grams 04/21/24 ointment Allergies Allergy/AdvReac Type Severity Reaction Status Date / Time No Known Drug Allergies Allergy Verified 12/15/22 09:27 Opioid HPI Opioid Management Most Recent Opioid Data: Last Pain Scale 7 01/01/24 08:26 01/01/24 Review of Systems ROS Status of ROS 10 or more systems reviewed and unremark able except as noted in history and below [facility] Social History Little interest or pleasure in doing things: not at all Feeling down, depressed, or hopeless: not at all Exam Narrative Exam Narrative: Nurses notes and vital signs reviewed and patient is not hypoxic. Mouth examination: The patient have a laceration to her lower lip mostly just to the outer epidermis but it have a small flap-like, and is not going through the whole thickness of the lip, it is already healing and dry , even with irritation it was not bleeding and there was no puncture wounds or any laceration to the tongue or teeth General: Well-appearing and in no apparent distress. Skin: Warm, dry, no pallor noted. No rash. Head: Normocephalic, atraumatic. Neck: Supple, non-tender. Eye: Pupils are equal, round and EOMI. No scleral icterus. Ears, Nose, Mouth, and Throat: TM are clear, no nasal mucosal hypertrophy. Oral mucosa is moist, no posterior oropharynx erythema, uvula is mid-line Cardiovascular: Regular Rate and Rhythm without murmur, gallop or rub. Respiratory: No accessory muscle use or respiratory distress. Lungs are clear to auscultation, no wheezing, rales or rhonchi Chest Wall: no tenderness Back: No midline thoracic or lumbar vertebral tenderness. No CVA tenderness Musculoskeletal: normal ROM, no calf or popliteal tenderness, no lower extremity edema/swelling GI: Abdomen is soft, non-distended. Normal bowel sounds. No masses appreciated. No tenderness to palpation. No rebound, guarding, or rigidity noted. Neurological: A&O x4. No cranial nerve dysfunction observed. No truncal ataxia. Moves all extremities. Sensation intact. Psychiatric: Cooperative and interactive. Normal mood and affect. Constitutional Vital Signs, click to edit/add: Last Vital Signs Temp 98.7 F 04/21/24 16:30 Pulse 95 H 04/21/24 16:30 Resp 16 04/21/24 16:30 BP 138/94 H 04/21/24 16:30 Pulse Ox 97 04/21/24 16:30 Course Vital Signs Vital signs: Vital Signs Temperature 98.7 F 04/21/24 16:30 Pulse Rate 95 H 04/21/24 16:30 Respiratory Rate 16 04/21/24 16:30 Blood Pressure 138/94 H 04/21/24 16:30 Pulse Oximetry 97 04/21/24 16:30 Temperature 98.7 F 04/21/24 16:30 Pulse Rate 95 H 04/21/24 16:30 Respiratory Rate 16 04/21/24 16:30 Blood Pressure 138/94 H 04/21/24 16:30 Pulse Oximetry 97 04/21/24 16:30 Medical Decision Making [facility] Narrative Medical decision making narrative: The patient laceration has been more than 12 hours at least and it is dry I tried irritating it with cleaning it and there was no bleeding The laceration ready healing and right now I did explain to the patient that it is at risk of infection showed she was provided with a tetanus booster in addition to Augmentin and bacitracin with instruction to monitor for any infection signs to come back to the ER The patient is to follow up with primary care physician in next 2-3 days or to return to the emergency department should any of the signs or symptoms worsen or new symptoms develop. The patient agrees with the following Diagnosis and Treatment plan and the patient will be discharged home. Discharge Plan Discharge Chief Complaint: Skin/Abscess/Foreign Body Clinical Impression: Laceration of lip Qualifiers: Encounter type: initial encounter Qualified Code(s): S01.511A - Laceration without foreign body of lip, initial encounter Patient Disposition: Home, Self-Care Time of Disposition Decision: 16:59 Condition: Good Mode of Transportation: Private Vehicle Prescriptions / Home Meds: New amoxicillin-pot clavulanate 875-125 mg tablet 1 tab PO Q12H Qty: 14 0RF bacitracin 500 unit/gram ointment 1 applic topical Q12H Qty: 14 0RF No Action hydrocodone-acetaminophen 5-325 mg tablet 1 tab PO TID PRN (Reason: pain) Qty: 90 0RF hydrocodone-acetaminophen 5-325 mg tablet 1 tab PO TID PRN (Reason: pain) Qty: 90 0RF leflunomide [Arava] 10 mg tablet 10 mg PO DAILY citalopram [Celexa] 20 mg tablet 20 mg PO DAILY lisinopril 5 mg tablet 5 mg PO DAILY Rinvoq 15 mg tablet extended release 24 hr 15 mg PO DAILY bupropion HCl [Wellbutrin SR] 150 mg tablet sustained-release 12 hr 150 mg PO DAILY calcium PO .qd metoprolol succinate [Toprol XL] 25 mg tablet extended release 24 hr 25 mg PO DAILY oxycodone-acetaminophen [Percocet] 5-325 mg tablet 1 tab PO TID PRN (Reason: pain) Qty: 63 0RF naloxone [Narcan] 4 mg/actuation spray,non-aerosol 4 mg intranasal Q3M PRN (Reason: opioid overdose) Qty: 2 0RF Rx Instructions: spray 1 dose into ONE nostril; alternate nostrils w each dose until help arrives tizanidine [Zanaflex] 4 mg tablet See Rx Instructions .ROUTE .COMPLEX PRN (Reason: muscle spasticity) Qty: 360 0RF Rx Instructions: take one tab each morning and 3 tabs at bedtime daily hydrocodone-acetaminophen 5-325 mg tablet 1 tab PO TID PRN (Reason: pain) Qty: 90 0RF pregabalin [Lyrica] 150 mg capsule 150 mg PO BID Qty: 180 0RF pregabalin [Lyrica] 150 mg capsule 150 mg PO BID Qty: 180 0RF hydrocodone-acetaminophen 5-325 mg tablet 1 tab PO TID PRN (Reason: pain) Qty: 90 0RF Print Language: Tristanian Instructions: Laceration (DC), Laceration Without Closure (ED) Referrals: John Mcdaniels DO [Primary Care Provider] - 1 week Discharge Date/Time: 04/21/24 17:09
== END 2024-04-21 17:09 | disposition home or self-care (01) ==
PROVIDERS: Emergency Provider Emergency Medicine; PCP Internal Medicine
DX: S01.511A Laceration without foreign body of lip, initial encounter (principal); W19.XXXA Unspecified fall, initial encounter; Z23 Encounter for immunization
CPT/HCPCS: 90471; 90715; 99284

== ENCOUNTER 2024-05-22 15:02 | Outpatient (OUT) | payer BC, MEDICARE, SELFPAY ==
[2024-05-22 15:23] LABS: Basophils Absolute Auto 0.1 10^3/uL (0.0-0.1); Basophils Percent Auto 1.4 % (0.2-2.0); Eosinophils Absolute Auto 0.4 10^3/uL (0.0-0.7); Eosinophils Percent Auto 9.7 % (0.9-7.0); Hematocrit 36.8 % (36.0-48.0); Hemoglobin 11.9 g/dL (12.0-16.0); Immature Granulocytes Abs Auto 0.02 10^3/uL (0.00-0.03); Immature Granulocytes Pct Auto 0.5 % (0.0-0.5); Lymphocytes Absolute Auto 2.2 10^3/uL (1.2-3.8); Lymphocytes Percent Auto 50.8 % (20.5-60.0); Mean Corpuscular HGB Conc 32.3 g/dL (29.9-35.2); Mean Corpuscular Hemoglobin 31.3 pg (26.7-34.0); Mean Corpuscular Volume 96.8 fL (81.0-99.0); Mean Platelet Volume 9.8 fL (9.5-13.5); Monocytes Absolute Auto 0.4 10^3/uL (0.3-0.8); Monocytes Percent Auto 9.7 % (1.7-12.0); Neutrophils Absolute Auto 1.2 10^3/uL (1.4-6.5); Neutrophils Percent Auto 27.9 % (43.0-75.0); Platelet Count 226 10^3/uL (150-450); Red Cell Distribution Width 12.9 % (11.0-15.0); White Blood Count 4.4 10^3/uL (4.0-11.0)
[2024-05-22 15:26] LABS: Reticulocyte Pct Auto 0.77 % (0.60-3.10)
== END 2024-05-22 15:03 | disposition home or self-care (01) ==
LOC: LAB 15:03
PROVIDERS: PCP Internal Medicine; Visit Provider Internal Medicine
DX: D64.9 Anemia, unspecified (principal)
CPT/HCPCS: 36415; 85025; 85045

== ENCOUNTER 2024-06-14 14:36 | Outpatient (RCR) | payer BC, MEDICARE, SELFPAY | END 2024-07-10 14:56 | disposition home or self-care (01) | LOC: PT 14:36 | PROVIDERS: PCP Internal Medicine; Visit Provider Orthopaedic Surgery | DX: Z98.890 Other specified postprocedural states (principal); M25.512 Pain in left shoulder | CPT/HCPCS: 97110; 97140; 97161 ==

== ENCOUNTER 2024-06-21 13:37 | Outpatient (RCR) | payer BC, MEDICARE, SELFPAY ==
[2024-06-21 14:10] LABS: Basophils Percent Auto 0.9 % (0.2-2.0); Eosinophils Absolute Auto 0.1 10^3/uL (0.0-0.7); Eosinophils Percent Auto 2.3 % (0.9-7.0); Hematocrit 33.5 % (36.0-48.0); Immature Granulocytes Abs Auto 0.01 10^3/uL (0.00-0.03); Immature Granulocytes Pct Auto 0.3 % (0.0-0.5); Lymphocytes Absolute Auto 1.6 10^3/uL (1.2-3.8); Lymphocytes Percent Auto 46.1 % (20.5-60.0); Mean Corpuscular HGB Conc 32.8 g/dL (29.9-35.2); Mean Corpuscular Hemoglobin 31.8 pg (26.7-34.0); Mean Corpuscular Volume 96.8 fL (81.0-99.0); Mean Platelet Volume 9.2 fL (9.5-13.5); Monocytes Absolute Auto 0.4 10^3/uL (0.3-0.8); Monocytes Percent Auto 10.9 % (1.7-12.0); Neutrophils Absolute Auto 1.4 10^3/uL (1.4-6.5); Neutrophils Percent Auto 39.5 % (43.0-75.0); Platelet Count 160 10^3/uL (150-450); Red Blood Count 3.46 10^6/uL (4.20-5.40); Red Cell Distribution Width 13.6 % (11.0-15.0); White Blood Count 3.5 10^3/uL (4.0-11.0)
[2024-06-21 14:45] LABS: Erythrocyte Sedimentation Rate 6 mm/hr (<=30)
[2024-06-21 14:47] LABS: Alanine Aminotransferase 13 U/L (14-59); Albumin Globulin Ratio 1.3; Albumin Level 3.8 g/dL (3.4-5.0); Alkaline Phosphatase 48 U/L (46-116); Anion Gap 16.3; Aspartate Amino Transferase 14 U/L (15-37); BUN Creatinine Ratio 12.6; Bilirubin Total 0.5 mg/dL (0.2-1.0); Calcium 9.1 mg/dL (8.5-10.1); Carbon Dioxide 26.1 mmol/L (21.0-32.0); Chloride 105 mmol/L (98-107); Estimated GFR (African America 45 (>=60 mL/min/1.73m^2); Estimated GFR (Non-African Ame 37 (>=60 mL/min/1.73m^2); Globulin 2.9 g/dL; Glucose 76 mg/dL (74-106); Potassium 3.4 mmol/L (3.5-5.1); Sodium 144 mmol/L (136-145); Total Protein 6.7 g/dL (6.4-8.2)
== END 2024-07-10 10:41 | disposition home or self-care (01) ==
LOC: LAB 13:37
PROVIDERS: PCP Internal Medicine; Visit Provider Internal Medicine Rheumatology
DX: M05.79 Rheumatoid arthritis with rheumatoid factor of multiple sites without organ or systems involvement (principal); M15.0 Primary generalized (osteo)arthritis; Z79.899 Other long term (current) drug therapy
CPT/HCPCS: 36415; 80053; 85025; 85652

== ENCOUNTER 2024-06-26 10:21 | Outpatient (OUT) | payer BC, MEDICARE, SELFPAY ==
--- NOTE | 2024-06-26 | CONS_ITS ---
CONSULTATION DATE: 06/26/2024 TO: Dr. Mcdaniels CHIEF COMPLAINT: Includes bilateral shoulder pain. HISTORY: She rates the pain as being 5/10, deep aching in character with a stabbing component and a burning component, increased with activities such as lifting maneuvers, pushing/pulling maneuvers. She feels most comfortable in the semi-recumbent position or applying ice. CURRENT MEDICATION: Includes Barlow 5 mg b.i.d. to t.i.d. as tolerated. She is also on Lyrica 150 mg b.i.d. and tizanidine 4 mg b.i.d. Her JASEN on today?s visit is 43%. She denies any side effects with the use of these medications and there are no appreciable signs consistent with acceleration of her opioid usage. She reports it does improve her quality of life, level of functioning and sleep pattern. EXAMINATION: Notable for patient having reduced range of motion to shoulder extension and shoulder rotation, adduction bilaterally. She also has pain with bilateral shoulder abduction, as well as with bilateral shoulder flexion with internal rotation. IMPRESSION: Our impression is patient with chronic pain secondary to bilateral shoulder pain. RECOMMENDATIONS: I have increased the tizanidine to 4 mg one pill t.i.d. I have asked her to reduce the use of Barlow 5 mg pills, no more than 80 pills to last one month?s time, and I increased the Lyrica to 150 mg t.i.d. as tolerated. Will see the patient back in the office in three months? time or sooner if needed. As part of providing excellent, safe, comprehensive care, the following was completed at our patient's visit: 1. A medication reconciliation and review to ensure accurate knowledge of current/active medications, including asking our patients to inform us about any loml-ase-bupifan medications or herbal remedies/nutritional supplements/alternative remedies. 2. A review to specifically ensure our patients have had annual screening for: elevated body mass index (BMI, see intake chart for exact total), tobacco use, screening for depression, and screening for unhealthy alcohol use. When screening is concerning, patients are provided with education and the specific recommendation to discuss the concerning health issue and treatment options with their primary care provider. MANA
== END 2024-06-26 10:22 | disposition home or self-care (01) ==
LOC: PM 10:22
PROVIDERS: PCP Internal Medicine; Visit Provider Anesthesiology Pain Medicine
DX: M25.511 Pain in right shoulder (principal); M25.512 Pain in left shoulder; G89.4 Chronic pain syndrome
CPT/HCPCS: G0463

== ENCOUNTER 2024-07-11 08:39 | Outpatient (RCR) | payer MEDICARE, SELFPAY | END 2024-09-07 11:58 | disposition home or self-care (01) | LOC: PT 08:39 | PROVIDERS: PCP Internal Medicine; Visit Provider Orthopaedic Surgery | DX: M25.512 Pain in left shoulder (principal); Z98.890 Other specified postprocedural states | CPT/HCPCS: 97110; 97140; G0283 ==

== ENCOUNTER 2024-08-31 12:23 | Outpatient (OUT) | payer MEDICARE, SELFPAY ==
--- OUTSIDE RECORDS SUMMARY | 2024-08-31 12:39 | XMS_ITS | CCD ---
Author Organization [facility] Care Team Providers Care Wet Process Miller Name Role Phone BASIM, BARRY H. Unavailable Unavailable BASIM, BARRY H. Unavailable Unavailable BALL, JOHN E Unavailable Unavailable BASIM, BARRY H. Unavailable Unavailable BALL, JOHN E Unavailable Unavailable EBRAHEIM, MARYURI Attending Unavailable EBRAHEIM, MARYURI Admitting Unavailable BALL, JOHN Referring Unavailable BALL, JOHN Primary Care Unavailable EBRAHEIM, MARYURI Surgeon Unavailable NV Procedure Practitioner Unavailab le NV Procedure Practitioner Unavailab TASH Chery Surgeon Unavailable [...] vailable SYMONE, DR LOPEZ Primary Care Unavailable KWABENA, VANDANA Consulting Unavailable LAKSHMIPATHY ., NICOLE Consulting Amy vailable JOHN ASHBY Primary Care Physician Cesia Artis Unavailable Unavailable John Ashby MD Primary Care Provider CAROLINA ZHONG Attending Unavailable Kate Scruggs M Unavailable Unavailable Brown, Jordan A Referring Unavailable Brown, Jordan A Admitting Unavailable Brown, Jordan A Attending Unavailable Brown, Jordan A Admitting Unavailable Brown, Jordan A Attending Unavailable Brown, Jordan A Referring Unavailable Brown, Jordan A Referring Unavailable Brown, Jordan A Admitting Unavailable Brown, Jordan A Attending Unavailable Brown, Jordan A Referring Unavailable Brown, Jordan A Admitting Unavailable Brown, Jordan A Attending Unavailable Brown, DO Jordan A Admitting Unavailable Brown, DO Jordan A Attending Unavailable Brown, DO Jordan A Referring Unavailable Brown, DO Jordan A Admitting Unavailable Brown, DO Jordan A Attending Unavailable Brown, DO Jordan A Referring Unavailable Brown, Jordan A Admitting Unavailable Brown, Jordan A Attending Unavailable Brown, Jordan A Referring Unavailable BROWN, JORDAN A Referring [...] Date of Onset Reaction(s) Facility (1 source) [id number]; Translations: [Unknown] Propensity to adverse reactions (disorder) 2 [facility] Repository (20 sources) Cephalexin Drug Allergy 8 GI intolerance [facility] Work Phone: (7 sources) patient allergy list reviewed by nurse or physicia Propensity to adverse reactions 4 Comment:Done [employer] Other Medications Current Medications Medication Drug Class(es) Dates Sig (Normalized) Sig (Original) acetaminophen 500 mg oral tablet (5 sources) Start: 05-22-2024 take 1 tablet by mouth every four hours for pain acetaminophen (Tylenol Extra Strength) 500 MG tablet Indications: Status post shoulder surgery Take 1 tablet (500 mg) by mouth every 4 (four) hours if needed for mild pain 40 tablet 05/22/2024 Active acetaminophen 325 mg / HYDROcodone bitartrate 5 mg oral tablet (15 sources) Opioid Agonist Start: 05-08-2024 End: 05-15-2024 take 1-2 tablets by mouth every four hours HYDROcodone-acetami nophen ([place]) 5-325 MG tablet Indications: Status post shoulder surgery Take 1-2 tablets by mouth every 4 (four) hours if needed (pain) for up to 7 days 40 tablet 05/08/2024 05/15/2024 Active Start: 03-19-2024 take 1 tablet by anne th every six hours acetaminophen-hydrocodone 325 mg-5 mg or al tablet 1 tab(s), Oral, q6hr, Refill(s) 0, Pain Start Date: 03/19/24 Status: Ordered Start: 06-30-2023 HYDROcodone-ac etaminophen ([place]) 5-325 MG tablet 06/30/2023 Active Start: 06-30-2023 take 1 tablet by anne th three times daily as needed HYDROcodone-acetaminophen ([place]) 5-325 MG tablet TAKE 1 TABLET BY MOUTH 3 TIMES A DAY NEEDED FOR PAIN*MUS LAST 30 DAYS 06/30/2023 Active acetaminophen 325 mg / oxyCODONE hydrochloride 5 mg oral tablet (20 sources) Opioid Agonist Start: 04-27-2024 Percocet 5 mg- 325 mg oral tablet See Instructions, 40 tab(s), Refill(s) 0, 1-2 tab(s) Oral q4hr, [facility]/pharmacy #[id number], 165, cm, 03/19/24 13:53:00 EDT, Height/Length Dosing, 65, kg, 03/19/24 13:53:00 EDT, Weight Dosing Start Date: 04/27/24 Status: Ordered Start: 04-06-2023 Percocet 5 mg- 325 mg oral tablet See Instructions, 40 tab(s), Refill(s) 0, 1-2 tab(s) Oral q4hr, [facility]/pharmacy #[id number], 160, cm, 03/25/23 6:16:00 EDT, Height/Length Dosing, 73.5, kg, 03/25/23 6:16:00 EDT, Weight Dosing Start Date: 04/06/23 Status: Ordered Start: 06-30-2018 End: 09-27-2023 take 1 tablet by mouth three times daily Oxycodone-Acetaminophen 5-325 mg Tablet Discontinued 1 TAB PO Three times daily June 30, 2018 12:00am September 27, 2023 1:54pm take 1-2 tablets by mouth every six hours oxyCODONE-acetaminophen (Percocet) 5-325 MG tablet TAKE 1-2 TABLETS BY MOUTH EVERY 6 HOURS Active 24 hr buPROPion hydrochlorid e 300 mg extended release oral tablet (20 sources) Aminoketone Start: 09-22-2023 End: 03-20-2024 Bupropion Hcl 300 mg tablet extended release 24 hr Active 0 .ROUTE .COMPLEX 90 March 20, 2024 7:35am TAKE 1 TABLET DAILY IN THE MORNING Start: 03-26-2023 buPROPion XL ( Wellbutrin XL) 300 MG 24 hr tablet 03/26/2023 Active Start: 03-24-2023 take 1 tablet by anne twice daily Wellbutrin XL 300 mg/24 hours Tab-ER 300 mg = 1 tab(s), Oral, BID, Refills(s) 0, Depression Start Date: 03/24/23 Status: Ordered Start: 06-30-2018 End: 09-27-2023 take 1 tablet by mouth once daily Bupropion Hcl 300 mg tablet extended release 24 hr Discontinued 300 MG PO Daily September 21, 2023 11:00pm September 22, 2023 11:31am take 1 tablet by anne twice daily in the morning buPROPion HCl ER (XL) 300 MG 1 tablet in the morning Orally twice daily for 90 days Active take 1 tablet by anne every twenty-four hours buPROPion HCl ER (XL) 150 MG 1 tablet in the morning Orally Once a day for 30 Active celecoxib 100 mg oral capsule (3 sources) Nonsteroidal Anti-inflammatory Drug Start: 04-27-2024 take 1 capsule by mouth twice daily as needed for pain CeleBREX 100 mg Cap 100 mg = 1 cap(s), Oral, BID, PRN for pain, # 60 cap(s), Refills(s) 0, Pharmacy: [facility]/pharmacy #[id number], 165, cm, 03/19/24 13:53:00 EDT, Height/Length Dosing, 65, kg, 03/19/24 13:53:00 EDT, Weight Dosing Start Date: 04/27/24 Status: Ordered Start: 04-06-2023 take 1 capsule by mo [facility] twice daily as needed for pain CeleBREX 100 mg Cap 100 mg = 1 cap(s), Oral, BID, PRN for pain, # 60 cap(s), Refills(s) 0, Pharmacy: [facility]/pharmacy #[id number], 160, cm, 03/25/23 6:16:00 EDT, Height/Length Dosing, 73.5, kg, 03/25/23 6:16:00 EDT, Weight Dosing Start Date: 04/06/23 Status: Ordered cephalexin 500 mg oral capsule (1 source) Cephalosporin Antibacterial Start: 04-06-2023 End: 04-13-2023 take 1 capsule by mouth every eight hours Keflex 500 mg Cap 500 mg = 1 cap(s), Oral, q8hr, X 7 day(s), # 21 cap(s), Refills(s) 0, Pharmacy: [facility]/pharmacy #[id number], 160, cm, 03/25/23 6:16:00 EDT, Height/Length Dosing, 73.5, kg, 03/25/23 6:16:00 EDT, Weight Dosing Start Date: 04/06/23 Stop Date: 04/13/23 Status: Ordered Citalopram (20 sources) Serotonin Reuptake Inhibitor Start: 07-24-2024 Citalopram 10 mg tablet Active 0 .ROUTE .[facility] July 24, 2024 7:42am TAKE 1 TABLET DAILY Start: 01-26-2024 End: 07-24-2024 Citalopram 10 mg tablet Disc ontinued 0 .ROUTE .[facility] January 26, 2024 7:54am July 24, 2024 7:42am TAKE 1 TABLET DAILY Start: 01-26-2024 Citalopram Act hal 0 .ROUTE .[facility] January 26, 2024 8:54am TAKE 1 TABLET DAILY Start: 08-17-2023 End: 01-26-2024 take 1 tablet by mouth once daily Citalopram 10 mg tablet Discontinued 10 MG PO Daily January 25, 2024 11:00pm January 26, 2024 7:55am Start: 06-30-2018 End: 09-27-2023 take 1 tablet by mouth once daily Citalopram 20 mg Tablet Discontinued 20 MG PO Daily June 30, 2018 12:00am September 27, 2023 1:50pm take 1 tablet by anne every twenty-four hours Citalopram Hydrobromide 10 MG 1 tablet Orally Once a day Active docusate sodium 100 mg oral capsule (3 sources) Start: 04-27-2024 take 1 capsule by mo [facility] twice daily as needed for constipation Colace 100 mg Cap 100 mg = 1 cap(s), Oral, BID, PRN for constipation, # 20 cap(s), Refills(s) 0, Pharmacy: [facility]/pharmacy #[id number], 165, cm, 03/19/24 13:53:00 EDT, Height/Length Dosing, 65, kg, 03/19/24 13:53:00 EDT, Weight Dosing Start Date: 04/27/24 Status: Ordered Start: 04-06-2023 take 1 capsule by [facility] twice daily as needed for constipation Colace 100 mg Cap 100 mg = 1 cap(s), Oral, BID, PRN for constipation, # 20 cap(s), Refills(s) 0, [id number] 160, cm, 03/25/23 6:16:00 EDT, Height/Length Dosing, 73.5, kg, 03/25/23 6:16:00 EDT, Weight Dosing Start Date: 04/06/23 Status: Ordered leflunomide 10 mg oral tablet (20 sources) Antirheumatic Agent Start: 06-30-2018 End: 09-27-2023 take 1 tablet by mouth once daily Leflunomide (Arava) 10 mg tablet Active 10 MG PO Daily September 26, 2023 11:00pm lidocaine 0.05 mg/mg medicated patch (3 sources) Antiarrhythmic, Amide Local Anesthetic Start: 06-13-2024 End: 12-10-2024 apply 1 dose transdermal route every twelve hours, then apply 1 dose transdermal route every twelve hours lidocaine (Lidoderm) 5 % patch Indications: Bilateral shoulder pain, unspecified chronicity Apply 1 patch over 12 hours topically Daily Remove & discard patch within 12 hours or as directed by . 30 patch 5 06/13/2024 12/10/2024 Active lisinopril 5 mg oral tablet (20 sources) Angiotensin Converting Enzyme Inhibitor Start: 09-27-2023 take 1 tablet by mouth once daily Lisinopril 5 mg tablet Active 5 MG PO Daily September 26, 2023 11:00pm Start: 04-07-2023 End: 04-07-2023 lisinopril 5 mg Tab 5 mg = 1 tab(s), Tab, Oral, Start date 04/07/23 9:00:00 AM EDT, 04/06/23 9:58:00 EDT Start Date: 04/07/23 Stop Date: 04/07/23 Status: Completed Start: 11-09-2022 End: 07-17-2024 take 1 tablet by mouth in the morning lisinopril 5 MG tablet Take 1 tablet by mouth in the morning. 01/21/2023 07/17/2024 Discontinued 24 hr metoprolol succinate 100 mg extended release oral tablet (20 sources) beta-Adrenergic Lisandra Start: 09-27-2023 take 1 tablet by mouth once daily Metoprolol Succinate 100 mg tablet extended release 24 hr Active 100 MG PO Daily September 26, 2023 11:00pm Start: 04-06-2023 End: 04-06-2023 metoprolol 100 mg [...] blood pressure Start Date: 04/06/23 Status: Ordered Omeprazole 40 mg capsule,delayed release(DR/EC) (1 source) Start: 06-04-2024 Omeprazole 40 mg capsule,delayed release(DR/EC) Active 0 .ROUTE .COMPLEX June 04, 2024 7:00am TAKE 1 CAPSULE ONCE DAILY ON AN EMPTY STOMACH FOLLOWED IN 30 MINUTES BY BREAKFAST ondansetron 4 mg disintegrating oral tablet (3 sources) Serotonin-3 Receptor Antagonist Start: 04-13-2024 take 1 tablet by mouth every eight hours as needed for nausea and vomiting Ondansetron 4 mg tablet,disintegratin g Active 4 MG PO Every 8 hours as needed for nausea and vomiting April 12, 2024 11:00pm pregabalin 150 mg oral capsule (20 sources) Start: 03-24-2023 pregabalin (Lyrica) 150 MG capsule 03/31/2023 Active Start: 06-30-2018 End: 09-27-2023 take 1 capsule by mouth three times daily Pregabalin (Lyrica) 75 mg Capsule Discontinued 75 MG PO Three times daily June 30, 2018 12:00am September 27, 2023 1:54pm Semaglutide (1 source) Start: 04-17-2024 inject 2 mg by subcutaneous injection every week Semaglutide Active 2 MG SUBCUT every week 3 April 17, 2024 12:00am Semaglutide 2 mg/dose (8 mg/3 mL) pen injector (1 source) Start: 04-17-2024 inject 2 mg by subcutaneous injection every week Semaglutide 2 mg/dose (8 mg/3 mL) pen injector Active 2 MG SUBCUT every week 3 April 16, 2024 11:00pm tiZANidine 4 mg oral capsule (20 sources) Central alpha-2 Adrenergic Agonist Start: 09-27-2023 take 1 capsule by mouth every six hours Tizanidine 4 mg capsule Active 4 MG PO Every 6 hours September 27, 2023 1:53pm Start: 03-24-2023 take 1 tablet by anne th in the morning, then take 3 tablets by mouth at bedtime Zanaflex 4 mg Tab See Instructions, 1 tab(s) Oral in AM 3 tabs at bedtime, Refills(s) 0 Start Date: 03/24/23 Status: Ordered Start: 06-30-2018 End: 09-27-2023 take 1 capsule by mouth twice daily Tizanidine 4 mg Capsule Discontinued 4 MG PO Twice daily June 30, 2018 12:00am September 27, 2023 1:54pm take 1 capsule by mo [facility] every six hours tiZANidine HCl 4 MG 1 tablet as needed Oral every 6 hours for 30 Active 24 hr upadacitinib 15 mg extended release oral tablet (20 sources) Start: 03-24-2023 take 1 tablet by mouth once daily Upadacitinib 15 mg tablet extended release 24 hr Active 15 MG PO Daily September 26, 2023 11:00pm Completed/Discontinued Medications Medication Drug Class(es) Dates Sig (Normalized) Sig (Original) alendronic acid 70 mg oral tablet (9 sources) Bisphosphonate Start: 06-30-2018 End: 09-27-2023 take 1 tablet by mouth every week Alendronate (Fosamax) 70 mg Tablet Discontinued 70 MG PO every week June 30, 2018 12:00am September 27, 2023 1:54pm aspirin 81 mg delayed release oral tablet (20 sources) Platelet Aggregation Inhibitor, Nonsteroidal Anti-inflammatory Drug Start: 06-30-2018 End: 09-27-2023 take 1 tablet by mouth once daily Aspirin 81 mg Tablet,Delayed Release (Dr/Ec) Discontinued 81 MG PO Daily June 30, 2018 12:00am September 27, 2023 1:48pm betamethasone 3 mg/ml / betamethasone acetate 3 mg/ml injectable suspension (4 sources) Corticosteroid Start: 06-05-2024 End: 06-05-2024 betamethasone acetate-betamethas one sodium phosphate (Celestone) injection 2 mL Start: 06-05-2024 End: 06-05-2024 2 mL, Intra-articular, Once PRN Procedure, Starting on Tue06/05/24 at 1426, For 1 dose calcium carbonate 1500 mg oral tablet (18 sources) Start: 04-21-2018 take 1 tablet by mouth every twelve hours Calcium 600 MG 1 tablet with meals Orally Twice a day Apr, Not-Taking/PRN Start: 04-21-2018 [facility] Calcium 600 MG 1 tablet with meals Orally Twice a day Apr, Not-Taking 24 hr dilTIAZem hydrochloride 360 mg extended release oral tablet (9 sources) Calcium Channel Lisandra Start: 06-30-2018 End: 09-27-2023 take 1 tablet by mouth once daily Diltiazem Hcl 360 mg Tablet Extended Release 24 Hr Discontinued 360 MG PO Daily June 30, 2018 12:00am September 27, 2023 1:50pm doxycycline hyclate 100 mg oral capsule (20 sources) Tetracycline-c lass Drug Start: 09-27-2023 End: 09-28-2023 take 1 capsule by mouth twice daily Doxycycline Hyclate 100 mg capsule Discontinued 100 MG PO Twice daily September 26, 2023 11:00pm September 28, 2023 2:15pm Start: 06-28-2023 take 1 capsule by mo [facility] every twelve hours Doxycycline Hyclate 100 MG 1 capsule Orally Twice a day for 5 days Jun, Active Start: 07-06-2018 End: 09-27-2023 take 1 tablet by mouth twice daily Doxycycline Hyclate 100 mg tablet Discontinued 100 MG PO Twice daily 04 14July 06, 2018 12:00am September 27, 2023 1:50pm ibuprofen 800 mg oral tablet (9 sources) Nonsteroidal Anti-inflammatory Drug Start: 07-06-2018 End: 09-27-2023 take 1 tablet by mouth three times daily Ibuprofen 800 mg tablet Discontinued 800 MG PO Three times daily 60 July 06, 2018 12:00am September 27, 2023 1:50pm omeprazole 40 mg delayed release oral capsule (20 sources) Proton Pump Inhibitor Start: 09-27-2023 End: 06-04-2024 take 1 capsule by mouth once daily Omeprazole 40 mg capsule,delayed release(DR/EC) Discontinued 40 MG PO Daily September 26, 2023 11:00pm June 04, 2024 7:00am phentermine hydrochloride 37.5 mg oral capsule (20 sources) Sympathomimetic Amine Anorectic Start: 09-02-2023 End: 03-25-2024 take 1 capsule by mouth once daily 30 minutes after breakfast Phentermine 37.5 mg capsule Discontinued 37.5 MG PO Daily September 02, 2023 3:19pm September 02, 2023 3:44pm must administer 30 minutes before or 1-2 [...] Active traZODone hydrochloride 100 mg oral tablet (9 sources) Serotonin Reuptake Inhibitor Start: 06-30-2018 End: 09-27-2023 Trazodone 100 mg Tablet Discontinued 50 MG PO Daily at bedtime June 30, 2018 12:00am September 27, 2023 1:54pm Start: 06-30-2018 End: 09-27-2023 take 50 mg [...] 12:00am September 28, 2023 3:15pm Start: 03-31-2023 End: 09-28-2023 Valacyclovir 1 gram tablet Discontinued 2000 MG PO Twice daily September 26, 2023 11:00pm September 28, 2023 2:15pm take 2 tablets by mo [facility] every twelve hours valACYclovir HCl 1 GM 2 tablets Orally Twice a day Active take 2 tablets by mo [facility] every twelve hours valACYclovir HCl 1 GM 2 tablets Orally Twice a day Active take 1 tablet [facility] valACYclovir HCl 1 GM [...] tachycardia, unspecified] Onset: 07-15-2017 Chronic Cardiac dysrhythmias (5 sources) Bradycardia 03-24-2023 Episodic Chronic kidney disease (2 sources) Chronic kidney disease; Translations: [Chronic kidney disease, unspecified] 06-22-2024 Chronic Congestive heart failure; nonhypertensive (20 sources) Chronic systolic heart failure; Translations: [Chronic systolic (congestive) heart failure] Onset: 09-05-2018 09-27-2023 Chronic Deficiency and other anemia (20 sources) Anemia; Translations: [Anemia, unspecified] 09-27-2023 Episodic Deficiency and other anemia (5 sources) Anemia, unspecified; Translations: [Anemia, unspecified] Onset: 09-17-2022 Episodic Deficiency and other anemia (3 sources) Pernicious anemia; Translations: [Vitamin B12 deficiency anemia due to intrinsic factor deficiency] 04-16-2024 Episodic Deficiency and other anemia (4 sources) Vitamin B12 deficiency anemia due to intrinsic factor deficiency; Translations: [Pernicious anemia] 04-17-2024 Episodic Disorders of lipid metabolism (3 sources) Mixed hyperlipidemia; Translations: [Hypercholesterolemia ] Onset: 11-04-2023 Chronic Essential hypertension (20 sources) [...] colitis, unspecified] 09-27-2023 Episodic Malaise and fatigue (17 sources) Fatigue; Translations: [Other fatigue] 09-27-2023 Episodic [...] therapeutic drug level monitoring] Episodic Other aftercare (3 sources) Other care home (current) drug therapy; Translations: [Long-term (current) use of other medications] Onset: 09-17-2022 04-17-2024 Episodic Other aftercare (8 sources) Therapeutic drug level - finding; Translations: [Encounter for therapeutic drug level monitoring] Episodic Other aftercare (2 sources) Encounter for therapeutic drug level monitoring; Translations: [Encounter for therapeutic drug level monitoring] Episodic Other aftercare (3 sources) Drug therapy finding; Translations: [Other care home (current) drug therapy] 04-17-2024 Episodic Other circulatory disease (18 sources) History [...] circulatory system] Episodic Other connective tissue disease (20 sources) Tear of right rotator cuff; Translations: [...] musculoskeletal system and connective tissue Episodic Other liver diseases (2 sources) Enzyme level - finding; Translations: [Transaminasemia] 08-29-2024 Episodic Other lower respiratory disease (20 sources) [...] conditions (not mental disorders or infectious disease) (7 sources) Encounter for screening mammogram for malignant neoplasm of breast; Translations: [Patient encounter status] Onset: 2022 Episodic Mae-; endo-; and myocarditis; cardiomyopathy (except that caused by tuberculosis or sexually transmitted disease) (20 sources) Cardiomyopathy associated with another disorder; Translations: [Other cardiomyopathies] Onset: 09-05-2018 Chronic Comment on above: Echo: LVEF 61%, norm al RV size/function, RVSP 03/2024 Mae-; endo-; and myocarditis; cardiomyopathy (except that caused by tuberculosis or sexually transmitted disease) (9 sources) Acute pericarditis; Translations: [Acute pericarditis, unspecified] Episodic Pneumonia (except that caused by tuberculosis or sexually transmitted disease) (20 sources) Pulmonary mycobacterial infection; 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..] Range Facility Basophils Auto (Bld) [#/Vol] on 06-21-2024 Basophils (Bld) [#/Vol] Automated basophil count 0.0-0.1 [facility] Basophils/100 WBC Auto (Bld) on 06-21-2024 Basophils/100 WBC (Bld) Automated basophil % 0.2-2.0 [facility] Eosinophils/100 WBC Auto (Bl d)on 06-21-2024 Eosinophils/100 WBC (Bld) Automated eosinophil % 0.9-7.0 [facility] Erythrocyte distribution wid th Auto (RBC) [Ratio]on 06-21-2024 Erythrocyte distribution width (RBC) [Ratio] Erythrocyte distribution width [Ratio] by Automated count 11.0-15.0 [facility] Estimated glomerular filtrat ion rate (GFR) non- Americanon 06-21-2024 GFR/1.73 sq M.predicted among non-blacks MDRD (S/P/Bld) [Vol rate/Area] Estimated glomerular filtration rate (GFR) non- Low >=60 mL/min/1.73 m 2 [facility] Globulin Calc (S) [Mass/Vol] on 06-21-2024 Globulin (S) [Mass/Vol] Serum globulin measurement by calculation (mass/volume) [facility] Hematocrit Auto (Bld) [Volum e fraction]on 06-21-2024 Hematocrit (Bld) [Volume fraction] Hematocrit [Volume Fraction] of Blood by Automated count Low 36.0-48.0 [facility] Hemoglobin [Mass/volume] in Bloodon 06-21-2024 Hemoglobin (Bld) [Mass/Vol] Hemoglobin [Mass/volume] in Blood Low 12.0-16.0 [facility] Laboratory - Chemistry and C hemistry - challengeon 06-21-2024 Albumin [Mass/Vol] 3.8 g/dL 3.4-5.0 [facility] ALP [Catalytic activity/Vol] 48 U/L 46-116 [facility] ALT [Catalytic activity/Vol] 13 U/L Low 14-59 [facility] AST [Catalytic activity/Vol] 14 U/L Low 15-37 [facility] Bilirubin [Mass/Vol] 0.5 mg/dL 0.2-1.0 [facility] Calcium [Mass/Vol] 9.1 mg/dL 8.5-10.1 [facility] Chloride [Moles/Vol] 105 mmol/L 98-107 [facility] CO2 [Moles/Vol] 26.1 mmol/L 21.0-32.0 [facility] Creatinine [Mass/Vol] 1.43 mg/dL High 0.55-1.02 [facility] GFR/1.73 sq M.predicted MDRD (S/P/Bld) [Vol rate/Area] 45 mL/min/{1.73_m2} Low >=60 mL/min/1.73 m 2 [facility] Glucose [Mass/Vol] 76 mg/dL 74-106 [facility] Potassium [Moles/Vol] 3.4 mmol/L Low 3.5-5.1 [facility] Protein [Mass/Vol] 6.7 g/dL 6.4-8.2 [facility] Sodium [Moles/Vol] 144 mmol/L 136-145 [facility] Urea nitrogen [Mass/Vol] 18.0 mg/dL 7.0-18.0 [facility] Urea nitrogen/Creatinine [Mass ratio] 12.6 mg/mg [facility] Laboratory - Hematology and Cell countson 06-21-2024 ESR (Bld) [Velocity] 6 mm/h <=30 [facility] Immature granulocytes/100 WBC (Bld) 0.3 % 0.0-0.5 [facility] Leukocytes [#/volume] correc fito for nucleated erythrocytes in Blood by Automated counon 06-21-2024 WBC corrected for nucl RBC Auto (Bld) [#/Vol] Leukocytes [#/volume] corrected for nucleated erythrocytes in Blood by Automated coun Low 4.0-11.0 [facility] Lymphocytes Auto (Bld) [#/Vo l]on 06-21-2024 Lymphocytes (Bld) [#/Vol] Lymphocytes [#/volume] in Blood by Automated count 1.2-3.8 [facility] Lymphocytes/100 WBC Auto (Bl d)on 06-21-2024 Lymphocytes/100 WBC (Bld) Lymphocytes/100 leukocytes in Blood by Automated count 20.5-60.0 [facility] MCH Auto (RBC) [Entitic mass ]on 06-21-2024 MCH (RBC) [Entitic mass] MCH [Entitic mass] by Automated count 26.7-34.0 [facility] MCHC Auto (RBC) [Mass/Vol]on 06-21-2024 MCHC (RBC) [Mass/Vol] MCHC [Mass/volume] by Automated count 29.9-35.2 [facility] MCV Auto (RBC) [Entitic vol] on 06-21-2024 MCV (RBC) [Entitic vol] MCV [Entitic volume] by Automated count 81.0-99.0 [facility] Monocytes Auto (Bld) [#/Vol] on 06-21-2024 Monocytes (Bld) [#/Vol] Automated blood monocyte count 0.3-0.8 [facility] Monocytes/100 WBC Auto (Bld) on 06-21-2024 Monocytes/100 WBC (Bld) Automated monocyte % 1.7-12.0 [facility] Neutrophils Auto (Bld) [#/Vo l]on 06-21-2024 Neutrophils (Bld) [#/Vol] Neutrophils [#/volume] in Blood by Automated count 1.4-6.5 [facility] Neutrophils/100 WBC Auto (Bl d)on 06-21-2024 Neutrophils/100 WBC (Bld) Automated neutrophil % Low 43.0-75.0 [facility] No Panel Informationon 06-21 Eosinophils # (Auto) 0.1 10 3/uL 0.0-0.7 [facility] Immature Granulocyte # (Auto) 0.01 10 3/uL 0.00-0.03 [facility] Platelet mean volume Auto (B ld) [Entitic vol]on 06-21-2024 Platelet mean volume (Bld) [Entitic vol] Platelet mean volume [Entitic volume] in Blood by Automated count Low 9.5-13.5 [facility] Platelets Auto (Bld) [#/Vol] on 06-21-2024 Platelets (Bld) [#/Vol] Platelets [#/volume] in Blood by Automated count 150-450 [facility] RBC Auto (Bld) [#/Vol]on RBC (Bld) [#/Vol] Erythrocytes [#/volu me] in Blood by Automated count Low 4.20-5.40 [facility] Serum or plasma albumin/glob ulin mass ratioon 06-21-2024 Albumin/Globulin [Mass ratio] Serum or plasma albumin/globulin mass ratio [facility] Serum or plasma anion gap de terminationon 06-21-2024 Anion gap [Moles/Vol] Serum or plasma anion gap determination [facility] No Panel Informationon 06-05 Kate Scruggs, LORY T 06/09/2024 1:08 PM L Inj/Asp: L glenohumeral on 06/05/2024 2:26 PM Indications: pain Details: 25 G needle, ultrasound-guided Medications: 2 mL betamethasone acetate-betamethasone sodium phosphate 6 (3-3) MG/ML Consent was given by the patient. [facility] XR Shoulder - left 2 [facility] 05-09-2024 Imaging Result: 3 views left shoulder, Grashey/Zanca/outlet, taken today and saved to the permanent medical record are reviewed. No fractures. ACI WNL [facility] XR Shoulder - left 2 [facility] 05-08-2024 Radiology Study observation (narrative) [facility] Main OR Intraoperative Recor don 04-30-2024 Main OR Intraoperative Record Main OR Intraoperative Record Normal [facility] CBC w/ Auto Diffon 4 Basophils/100 WBC (Bld) 1.3 % Normal 0.0-2.0 [facility] Comment on above: Performed By: #### 2 [id number] ####[facility] [id number] [place] [address] Basophils/Leukocyte s Auto (Bld) [Pure # fraction] 0.1 E9/L Normal 0.0-0.2 [facility] Comment on above: Performed By: #### 2 [id number] ####[facility] [id number] [place] [address] Eosinophils (Bld) [#/Vol] 0.2 E9/L Normal 0.0-0.5 [facility] Comment on above: Performed By: #### 2 [id number] ####[facility] [id number] [place] [address] Eosinophils/100 WBC (Bld) 3.7 % Normal 0.0-8.0 [facility] Comment on above: Performed By: #### 2 [id number] ####[address] [place] [address] Erythrocyte distribution width (RBC) [Ratio] 15.3 % High 10.9-14.2 [facility] Comment on above: Performed By: #### 2 [id number] ####[address] [address] Hematocrit (Bld) [Volume fraction] 27.7 % Low 34.0-46.0 [facility] Comment on above: Performed By: #### 2 [id number] ####[address] [address] Hemoglobin (Bld) [Mass/Vol] 9.6 g/dL Low 12.0-16.0 [facility] Comment on above: Performed By: #### 2 [id number] ####[address] [address] Lymphocytes (Bld) [#/Vol] 0.9 E9/L Low 1.0-4.0 [facility] Comment on above: Performed By: #### 2 094995 ####[address] [address] Lymphocytes/100 WBC (Bld) 20.4 % Normal 14.0-50.0 [facility] Comment on above: Performed By: #### 2 285115 ####[address] [address] MCH (RBC) [Entitic mass] 33.7 pg Normal 27.0-34.0 [facility] Comment on above: Performed By: #### 2 690353 ####[address] [address] MCHC (RBC) [Mass/Vol] 34.6 g/dL Normal 31.4-36.0 [facility] Comment on above: Performed By: #### 2 465210 ####[address] [address] MCV (RBC) [Entitic vol] 97.3 fL Normal 80.0-100.0 [facility] Comment on above: Performed By: #### 2 856238 ####[address] [address] Monocytes (Bld) [#/Vol] 0.8 E9/L Normal 0.2-1.0 [facility] Comment on above: Performed By: #### 2 102860 ####[address] [address] Neutrophils (Bld) [#/Vol] 2.4 E9/L Normal 2.0-7.5 [facility] Comment on above: Performed By: #### 2 771759 ####[address] [address] Neutrophils/100 WBC (Bld) 55.1 % Normal 36.0-75.0 [facility] Comment on above: Performed By: #### 2 163353 ####[address] [address] Platelet 213.0 E9/L Normal 150.0-500.0 [facility] Comment on above: Performed By: #### 2 749068 ####[address] [address] Platelet mean volume (Bld) [Entitic vol] 7.0 fL Normal 6.4-10.8 [facility] Comment on above: Performed By: #### 2 124719 ####[address] [address] RBC (Bld) [#/Vol] 2.9 E12/L Low 4.3-5.9 [facility] Comment on above: Performed By: #### 2 177365 ####[address] [address] WBC corrected for nucl RBC Auto (Bld) [#/Vol] 4.3 E9/L Normal 4.0-11.0 [facility] Comment on above: Result Comment: Mae pheral smear review performed. Performed By: #### 2 [id number] ####[address] [place] [address] Discharge Instructionson Discharge Instructions Discharge Instructions RADHA ZAIDI :1960 Visit Date:04/27/2024 Inpatient Discharge Instructions Your Care Team Admitting Physician - Jordan Yuan DO Referring Physician - Jordan Yuan DO Reason for Your Visit LEFT SHOULDER ROTATOR CUFF TEAR This Is Your Medications List acetaminophen-oxycodone (Percocet 5 mg-325 mg oral tablet) buPROPion (Wellbutrin XL 300 mg/24 hours Tab-ER) celecoxib (CeleBREX 100 mg Cap) citalopram (citalopram 10 mg Tab) docusate (Colace 100 mg Cap) leflunomide (Arava 10 mg oral tablet) metoprolol (metoprolol 100 mg ER Tab) pregabalin (Lyrica 150 mg Cap) tizanidine (Zanaflex 4 mg Tab) upadacitinib (Rinvoq 15 mg oral tablet, extended release) [Image Removed: STOP]Stop taking these medications acetaminophen-hydrocodone (acetaminophen-hydrocodone 325 mg-5 mg oral tablet) Procedure History 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 What to do next New Follow Up Appointments after Discharge Follow Up with Jordan Yuan When: 05/08/2024 10:45 AM EDT Comments: Call for any problems. Keep scheduled appointment Appointment has already been scheduled Where: [address] [place] [address] (1) Medications What How Much When Instructions Next Dose New acetaminophen-oxycodone (Percocet 5 mg-325 mg oral tablet) See instructions 1-2 tab(s) Oral q4hr Pickup at [facility]/pharmacy #[id number] New celecoxib (CeleBREX 100 mg Cap) 1 Capsules By Mouth 2 times a day as needed for for pain Pickup at [facility]/pharmacy #[id number] New docusate (Colace 100 mg Cap) 1 Capsules By Mouth 2 times a day as needed for for constipation Pickup at [facility]/pharmacy #[id number] Unchanged buPROPion (Wellbutrin XL 300 mg/ 24 hours Tab-ER) 1 Tablets By Mouth 2 times a day Unchanged citalopram (citalopram 10 mg Tab) 1 Tablets By Mouth Every day Unchanged leflunomide (Arava 10 mg oral tablet) 1 Tablets By Mouth Every day Unchanged metoprolol (metoprolol 100 mg ER Tab) 1 Tablets By Mouth At bedtime Unchanged pregabalin (Lyrica 150 mg Cap) 1 Capsules By Mouth 2 times a day Unchanged tizanidine (Zanaflex 4 mg Tab) See instructions 1 tab(s) Oral in AM 3 tabs at bedtime Unchanged upadacitinib (Rinvoq 15 mg oral tablet, extended release) 1 Tablets By Mouth Every day Pharmacy Information [facility]/pharmacy #[id number]: [address], [place] [id number] [phone] What How Much When Comments Stop Taking acetaminophen-hydrocodone (acetaminophen-hydrocodone 325 mg-5 mg oral tablet) 1 Tablets By Mouth Every 6 hours [employer] [place], [place] [facility] AFTER YOUR SHOULDER ARTHROSCOPY 1. Diet: Begin with a liquid diet and advance to your normal diet as tolerated. 2. Activity: You may remove your sling for bathing and to perform gentle range of motion exercises for the hand, wrist, and elbow. Bend and straighten your elbow and wrist several times per day to minimize stiffness. Keep your elbow in close to your side when performing these exercises. Do not move your shoulder until instructed by your surgeon. Swelling after surgery is normal and this will gradually decrease over time. All sports activities are discouraged, at least until your first post-operative visit at which time we will discuss how and when to resume sports. 3. Driving: Driving is legal. If you are involved in an accident, you must be able to prove that you maintained full control of your vehicle. For this reason, it is advised that you do not drive until your strength returns. You should not operate a vehicle or heavy machinery if you are taking narcotic pain medication. 4. Pain: If pain persists despite rest, elevation, and medication, contact your surgeon. You will be given a prescription for pain medications prior to leaving the hospital. Please inform us of any known drug allergy. If you have any problems with the medication, it should be discontinued and our office notified. The sensation of splashing of fluid inside the joint is not cause for concern. It represents residual fluids from surgery and they will be absorbed. Elevation of the arm and application of an ice pack will minimize swelling and discomfort in the first 48 hours after surgery. 5. Bandage: Soft compression dressing has been applied to your shoulder. This dressing should be comfortable and absorb any leakage of fluid or blood from your operated shoulder. Although the dressing may become moist or blood stained, this is not usually a cause for concern. If this persists, notify your surgeon. You may remove the dressing 48 hours after your surgery. If you have a bandage in your armpit, leave this in place until follow up. Apply betadine and band-aids t (more content not included)... Normal [facility] Comment on above: Result Comment: Elec tronically Signed By: Rebecca HARO, Rodger Vergara\.br\Date and Time Signed: 04/27/24 10:11 EDT HEMATOLOGYOrdered By: SYSTEM SYSTEM on 04-27-2024 Basophils/100 WBC (Bld) 1.3 % Normal 0.0 - 2.0 % [facility] Basophils/Leukocyte s Auto (Bld) [Pure # fraction] 0.1 E9/L Normal 0.0 - 0.2 E9/L [facility] Eosinophils (Bld) [#/Vol] 0.2 E9/L Normal 0.0 - 0.5 E9/L [facility] Eosinophils/100 WBC (Bld) 3.7 % Normal 0.0 - 8.0 % [facility] Erythrocyte distribution width (RBC) [Ratio] 15.3 % High 10.9 - 14.2 % [facility] Hematocrit (Bld) [Volume fraction] 27.7 % Low 34.0 - 46.0 % [facility] Hemoglobin (Bld) [Mass/Vol] 9.6 g/dL Low 12.0 - 16.0 gm/dL [facility] Lymphocytes (Bld) [#/Vol] 0.9 E9/L Low 1.0 - 4.0 E9/L [facility] Lymphocytes/100 WBC (Bld) 20.4 % Normal 14.0 - 50.0 % [facility] MCH (RBC) [Entitic mass] 33.7 pg Normal 27.0 - 34.0 pg [facility] MCHC (RBC) [Mass/Vol] 34.6 g/dL Normal 31.4 - 36.0 gm/dL [facility] MCV (RBC) [Entitic vol] 97.3 fL Normal 80.0 - 100.0 fL [facility] Monocytes (Bld) [#/Vol] 0.8 E9/L Normal 0.2 - 1.0 E9/L [facility] Monocytes/100 WBC (Bld) 19.5 % High 4.0 - 14.0 % [facility] Neutrophils (Bld) [#/Vol] 2.4 E9/L Normal 2.0 - 7.5 E9/L [facility] Neutrophils/100 WBC (Bld) 55.1 % Normal 36.0 - 75.0 % [facility] Platelet 213.0 E9/L Normal 150.0 - 500.0 E9/L [facility] Platelet mean volume (Bld) [Entitic vol] 7.0 fL Normal 6.4 - 10.8 fL [facility] RBC (Bld) [#/Vol] 2.9 E12/L Low 4.3 - 5.9 E12/L [facility] WBC corrected for nucl RBC Auto (Bld) [#/Vol] 4.3 E9/L Normal 4.0 - 11.0 E9/L [facility] Comment on above: Result Comment: Mae pheral smear review performed. Inpatient Patient Summaryon 04-27-2024 Inpatient Patient Summary Inpatient Patient Summary [id number] [facility] Clinical Discharge Instructions PERSON INFORMATION Name: RADHA ZAIDI PHYSICIANS Admitting Physician: Jordan Yuan DO Attending Physician: Jordan Yuan DO PCP: JOHN ASHBY DO Discharge Diagnosis: Comment: PATIENT EDUCATION INFORMATION Instructions: Iris Yuan - After Your Shoulder Arthroscopy (Custom) Medication Leaflets: Follow up: MEDICATION LIST New Medications [id number], [address], [place] [id number], [phone] acetaminophen-oxycodone (Percocet 5 mg-325 mg oral tablet) 1-2 tab(s) Oral q4hr. Refills: 0. celecoxib (CeleBREX 100 mg Cap) 1 Capsules By Mouth 2 times a day as needed for pain. Refills: 0. docusate (Colace 100 mg Cap) 1 Capsules By Mouth 2 times a day as needed for constipation. Refills: 0. Medications to Continue with No Changes Other Medications buPROPion (Wellbutrin XL 300 mg/24 hours Tab-ER) 1 Tablets By Mouth 2 times a day. citalopram (citalopram 10 mg Tab) 1 Tablets By Mouth every day. leflunomide (Arava 10 mg oral tablet) 1 Tablets By Mouth every day. metoprolol (metoprolol 100 mg ER Tab) 1 Tablets By Mouth at bedtime. pregabalin (Lyrica 150 mg Cap) 1 Capsules By Mouth 2 times a day. tizanidine (Zanaflex 4 mg Tab) 1 tab(s) Oral in AM 3 tabs at bedtime. upadacitinib (Rinvoq 15 mg oral tablet, extended release) 1 Tablets By Mouth every day. No Longer Take the Following Medications acetaminophen-hydrocodone (acetaminophen-hydrocodone 325 mg-5 mg oral tablet) 1 Tablets By Mouth every 6 hours. Comment: Normal [facility] Main OR PACU I Recordon 04-10 Main OR PACU I Record Main OR PACU I Record PACU Phase I Document Type FT Summary Primary Physician: Jordan Yuan DO Finalized Date/Time: 04/27/24 11:12:00 Pt. Name: RADHA ZAIDI/Sex: 1960 Female Med Rec #: [id number] Physician: Jordan Yuan DO Financial #: [id number] Pt. Type: A Room/Bed: [facility]/ Admit/Disch: 04/27/24 05:21:12 - Institution: Case Times PACU I FT [...] to medications Entry 1 In PACU I 04/27/24 10:10:00 Discharge from PACU 04/27/24 11:19:00 I Outcomes Met? Yes Last Modified By: Ling Kathleen RN 04/27/24 11:11:43 Post-Care Text: The patient demonstrates knowledge of [...] PACU I FT Entry 1 Start Time 04/27/24 10:10:00 Stop Time 04/27/24 11:19:00 Acuity Level Acuity Level I Last Modified By: Ling Kathleen RN 04/27/24 11:11:56 Finalized By: Ling Kathleen RN Document Signatures Signed By: Ling Kathleen RN 04/27/24 11:12 Normal [facility] Main OR Preoperative Recordo n 04-27-2024 Main OR Preoperative Record Main OR Preoperative Record PreOp Document Type FT Summary Primary Physician: Jordan Yuan DO Finalized Date/Time: 04/27/24 09:02:45 Pt. Name: RADHA ZAIDI/Sex: 1960 Female Med Rec #: [id number] Physician: Jordan uYan DO Financial #: [id number] Pt. Type: A Room/Bed: [facility]/ Admit/Disch: 04/27/24 05:21:12 - Institution: Case Times PreOp FT Pre-Care Text: Verifies consent for planned procedure, identifies individual values and wishes concerning care, includes family members in perioperative teaching Entry 1 Patient Times. In Pre Surgery 04/27/24 06:00:00 Out Pre Surgery 04/27/24 07:39:00 Outcomes Met? Yes Last Modified By: Carli Gomez RN 04/27/24 09:02:43 Post-Care Text: The patient participates in decisions affecting his or her perioperative plan of care Finalized By: Carli Gomez RN Document Signatures Signed By: Carli Gomez RN 04/27/24 09:02 Normal [facility] Operative Reporton Operative Report Operative Report Patient: RADHA ZAIDI Age: 63 years Sex: Female : 1960 Associated Diagnoses: None Author: Jordan Yuan DO DATE OF SURGERY: 04/27/2024 SURGEON: Jordan Yuan D.O. [employer] HELPER: Jeff Marshall PREOPERATIVE DIAGNOSIS: Rotator cuff tear, left shoulder POSTOPERATIVE DIAGNOSIS: Rotator cuff tear, long head of the biceps tendon rupture, left shoulder PROCEDURE: 1. Examination under anesthesia, left shoulder 2. Left shoulder diagnostic arthroscopy 3. Arthroscopic rotator cuff repair (subscapularis and supraspinatus) 4. Arthroscopic extensive debridement ANESTHESIA: General + regional block ANESTHESIOLOGIST: BIANCA Chávez and Wm Bajwa MD IMPLANTS: 1. Subscapularis repair: Arthrex 5.5 mm biocomposite double loaded corkscrew anchor 2. Supraspinatus repair: Arthrex 2.6 RC fibertak anchors x 2 and 4.75 mm bio composite swivelock anchors x 2 OPERATIVE INDICATIONS: Radha is a 63-year-old female who has had persistent pain in the left shoulder despite conservative measures. Her pain affects her activities of daily living, ability to sleep at night, and quality of life. MRI was consistent with a full-thickness retracted tear of the supraspinatus with mild fatty atrophy. She agreed to proceed with the above procedure after a discussion of the risks, benefits, complications, alternatives, and expectations. Please see office notes for further details. PROCEDURE IN DETAIL: The correct operative site was identified and marked in the preoperative holding area. The patient was administered intravenous antibiotics in accordance with SCIP protocol and was also administered 1 g of tranexamic acid intravenously. The patient was transported to the regional block room and administered a regional anesthetic nerve block by the anesthesiologist. I requested the regional block to assist with intraoperative and postoperative pain control. The patient was transported to the operating room, placed supine on the operating room table, and administered general anesthetic. After adequate anesthesia was obtained, the patient was placed into the beachchair position with all bony prominences well-padded. The head was secured in the padded munoz. Surgical timeout was performed with all required personnel present. The operative shoulder was examined and found to have full forward flexion, abduction, internal and external rotation. No anterior or posterior instability. The operative upper extremity was prepped and draped in the usual sterile fashion. The forearm was secured in the [employer] tenet pneumatic arm munoz. Landmarks were demarcated. The glenohumeral joint was insufflated with 20 mL of injectable saline utilizing a spinal needle inserted posteriorly. A standard posterior portal was made. The arthroscope was introduced into the glenohumeral joint. An anterior portal in the rotator interval was made with outside-in technique using spinal needle localization. A 7 mm cannula was placed at the anterior portal. A hook probe was inserted and a diagnostic arthroscopy was carried out with the findings as noted below: 1. Superior labrum and biceps: Long head of the biceps tendon was absent with a stump remaining attached to the superior labrum. Significant fraying was present to the biceps stump. Superior labrum had mild fraying. 2. Labrum: Anterior inferior labrum had mild fraying but no detachment. Posterior inferior labrum intact. 3. Articular surfaces: Humeral head and glenoid were free of articular changes. 4. Rotator cuff: Full-thickness tear of the upper half of the subscapularis with medial retraction. Full-thickness tear of the supraspinatus retracted posteromedially. Infraspinatus intact. 5. Rotator interval was free of pathology. Axillary recess free of loose bodies. No HAGL or RHAGL. The biceps stump was released from the superior labrum with arthroscopic scissors and the stump was removed with a grasper. The superior and anterior labrum were debrided with a motorized shaver. The arm was forward elevated, internally rotated, and a posterior drawer force applied to the humeral head to better visualize the subscapularis footprint. The comma tissue was identified and used to locate the torn portion of the subscapularis. Tissue grasper was used to assess the mobility of the tendon. The arm was placed back into a neutral position. A portion of the greater tuberosity was cleared with the Hope Hull wand to improve visualization. An accessory anterosuperolateral portal was made with outside in technique using spinal needle localization. A passport cannula was placed. Soft tissue was cleared from the lesser tuberosity with the Hope Hull wand. A bony bleeding bed was created with the arthroscopic bur on the reverse setting. The punch was placed to the anterior portal and used to create a socket for the corkscrew anchor at the upper portion of the lesser tuberosity. The anchor was inserted. The sutures were passed using th (more content not included)... Normal [facility] Comment on above: Result Comment: Elec tronically Signed By: Jordan Yuan DO\.br\Date and Time Signed: 04/27/24 15:13 EDT Outpatient Surgery Discharge Instructionon 04-27-2024 Outpatient Surgery Discharge Instruction Outpatient Surgery Discharge Instruction [address] [place] [id number] Patient Discharge Instructions PERSON INFORMATION Name: RADHA ZAIDI Date of : 1960 Current Date: 04/27/2024 07:48:25 PHYSICIANS Admitting Physician: Jordan Yuan DO Discharge Diagnosis: RADHA ZAIDI has been given the following list of follow-up instructions, prescriptions, and patient education materials: IF UNABLE TO CONTACT YOUR PHYSICIAN AND YOU FEEL IT IS AN EMERGENCY, GO TO THE NEAREST EMERGENCY ROOM OR CALL 911 DYAN Florentino CHERYLL J, have received the attached patient education materials/instructions and have verbalized understanding: May we do a follow up call? Yes No I was present when discharge instructions were given ___ Patient Signature Date Clinican/Nurse Signature Date Follow up: Pharmacy Information: You may receive a survey from [employer] asking you to rate your care experience. Your feedback is important and will help us understand what we do well and how we can improve the quality of care we provide to you, your loved ones and our community. It?s an honor to serve you. Thank you for choosing [facility] HERE ARE THE MEDICATION CHANGES THAT OCCURRED DURING YOUR HOSPITAL STAY New Medications [id number], [address], [place] [id number], [phone] acetaminophen-oxycodone (Percocet 5 mg-325 mg oral tablet) 1-2 tab(s) Oral q4hr. Refills: 0. celecoxib (CeleBREX 100 mg Cap) 1 Capsules By Mouth 2 times a day as needed for pain. Refills: 0. docusate (Colace 100 mg Cap) 1 Capsules By Mouth 2 times a day as needed for constipation. Refills: 0. Medications to Continue with No Changes Other Medications buPROPion (Wellbutrin XL 300 mg/24 hours Tab-ER) 1 Tablets By Mouth 2 times a day. citalopram (citalopram 10 mg Tab) 1 Tablets By Mouth every day. leflunomide (Arava 10 mg oral tablet) 1 Tablets By Mouth every day. metoprolol (metoprolol 100 mg ER Tab) 1 Tablets By Mouth at bedtime. pregabalin (Lyrica 150 mg Cap) 1 Capsules By Mouth 2 times a day. tizanidine (Zanaflex 4 mg Tab) 1 tab(s) Oral in AM 3 tabs at bedtime. upadacitinib (Rinvoq 15 mg oral tablet, extended release) 1 Tablets By Mouth every day. No Longer Take the Following Medications acetaminophen-hydrocodone (acetaminophen-hydrocodone 325 mg-5 mg oral tablet) 1 Tablets By Mouth every 6 hours. PATIENT EDUCATION INFORMATION Instructions: [place], [place] [facility] AFTER YOUR SHOULDER ARTHROSCOPY 1. Diet: Begin with a liquid diet and advance to your normal diet as tolerated. 2. Activity: You may remove your sling for bathing and to perform gentle range of motion exercises for the hand, wrist, and elbow. Bend and straighten your elbow and wrist several times per day to minimize stiffness. Keep your elbow in close to your side when performing these exercises. Do not move your shoulder until instructed by your surgeon. Swelling after surgery is normal and this will gradually decrease over time. All sports activities are discouraged, at least until your first post-operative visit at which time we will discuss how and when to resume sports. 3. Driving: Driving is legal. If you are involved in an accident, you must be able to prove that you maintained full control of your vehicle. For this reason, it is advised that you do not drive until your strength returns. You should not operate a vehicle or heavy machinery if you are taking narcotic pain medication. 4. Pain: If pain persists despite rest, elevation, and medication, contact your surgeon. You will be given a prescription for pain medications prior to leaving the hospital. Please inform us of any known drug allergy. If you have any problems with the medication, it should be discontinued and our office notified. The sensation of splashing of fluid inside the joint is not cause for concern. It represents residual fluids from surgery and they will be absorbed. Elevation of the arm and application of an ice pack will minimize swelling and discomfort in the first 48 hours after surgery. 5. Bandage: Soft compression dressing has been applied to your shoulder. This dressing should be comfortable and absorb any leakage of fluid or blood from your operated shoulder. Although the dressing may become moist or blood stained, this is not usually a cause for concern. If this persists, notify your surgeon. You may remove the dressing 48 hours after your surgery. If you have a bandage in your armpit, leave this in place until follow up (more content not included)... [facility] Proceduralon 04-27-2024 Procedural Procedural Patient: RADHA ZAIDI Age: 63 years Sex: Female : 1960 Associated Diagnoses: None Author: Wm Bajwa MD Procedure Nerve Block Block Type: Interscalene block. Laterality: Left. Informed consent for anesthesia management: Anesthesia options discussed including nerve block, Description of the procedure, risks, benefits, and alternatives was provided, The patient's questions were addressed. Time out: Confirmed correct patient, procedure and site. Time: Date/Time 04/27/2024 07:41:00. Indication: Block for postoperative pain management as requested by surgeon. Anesthesia Method: IV Sedation with monitored anesthesia care, The patient remained awake and able to interact in a meaningful way throughout the procedure. Preparation: The patient was placed in the following position semirecumbant , Continuous pulse oximetry applied, Using maximal sterile barrier technique per current CMS guidelines including hand hygeine, Guidance (Ultrasound used to identify anatomical landmarks, Using sterile gel and probe covers, Permanent image retained), The site was prepped with ChloraPrep. Procedure: Anesthetic Agent skin/SQ local with 3cc 2% lido; 22g 50mm insulated echogenic block needle [facility]; 10cc .5% bupiv and 133mg exparel in 10cc in increments post negative aspiration; needle tip visualized throughout; motor response to nerve stimulator b/t .5 and .25 mAMP. , Needle was inserted without pain or parasthesia [...] patient tolerated the procedure as expected. [facility] Procedural Procedural Patient: RADHA ZAIDI Age: 63 years Sex: Female : 1960 Associated Diagnoses: None Author: Wm Bajwa MD Preoperative Information Anesthesia Preop Info: Time patient last ate or drank 04/27/2024 00:00:00. Anesthesia history: Patient history: None. Family history+: None. Informed consent: Signed by patient. Re-evaluation prior to induction: Initial evaluation reviewed: No significant change. Review of Systems Eye Ear/Nose/Mouth/Throat Respiratory: No shortness of breath, No cough. Cardiovascular: Syncope, syncope twice in the last several months; no antecedent cardiac symptoms; probably orthostatic hypotension; BP meds adjusted by Dr. Ashby, No chest pain. Gastrointestinal: No heartburn. Hematology/Lymphatics: No bleeding tendency. Musculoskeletal Neurologic Health Status Allergies: Allergic Reactions (Selected) No Known Allergies, Allergies (1) Active Severity Reaction No Known Allergies None Documented Current medications: (Selected) Inpatient Medications Ordered HYDROmorphone 1 mg/mL injectable solution: 0.4 mg = 0.4 mL, Injection, IV Push, q4min PRN Pain for 5 dose(s), Stop date Limited # of times, Routine, Start date 04/27/24 7:08:00 EDT, 04/27/24 7:08:00 EDT Lactated Ringers IV Teodora 1000 mL 1,000 mL: 1,000 mL, IV, 100 mL/hr, Routine, Start date 04/27/24 7:08:00 EDT, 10 hour(s), Total volume (mL): 1,000 Lactated Ringers IV Teodora 1000 mL 1,000 mL: 1,000 mL, IV, 150 mL/hr, Routine, Start date 04/27/24 6:00:00 EDT, 6.7 hour(s), Total volume (mL): 1,000 cefazolin additive + Sodium Chloride 0.9% intravenous solution 50 mL: 2 gram = 1 EA, Powder-Inj, IV Piggyback, PREOP, Routine, Start date 04/27/24 6:00:00 EDT, 100 mL/hr, Infuse over 30 minute(s) promethazine additive 12.5 mg + Sodium Chloride 0.9% IV Teodora 50 mL (INT) 50 mL: IV Piggyback, Once PRN Nausea/Vomiting, Routine, Start date 04/27/24 7:08:00 EDT, 151.5 mL/hr, Infuse over 20 minute(s), 04/27/24 7:08:00 EDT tranexamic acid additive + premix generic diluent 100 mL: 1,000 mg = 100 mL, Soln-IV, IV Piggyback, Once, Stop date 04/27/24 6:00:00 EDT, Routine, Start date 04/27/24 6:00:00 EDT, 200 mL/hr, Infuse over 30 minute(s) Documented Medications Documented Arava 10 mg oral tablet: 10 mg = 1 tab(s), Oral, Daily, Refills(s) 0, Arthritis Lyrica 150 mg Cap: 150 mg = 1 cap(s), Oral, BID, # 60 cap(s), Refills(s) 0, Pain Rinvoq 15 mg oral tablet, extended release: 15 mg = 1 tab(s), Oral, Daily, Refills(s) 0, Arthritis Wellbutrin XL 300 mg/24 hours Tab-ER: 300 mg = 1 tab(s), Oral, BID, Refills(s) 0, Depression Zanaflex 4 mg Tab: See Instructions, 1 tab(s) Oral in AM 3 tabs at bedtime, Refills(s) 0 acetaminophen-hydrocodone 325 mg-5 mg oral tablet: 1 tab(s), Oral, q6hr, Refill(s) 0, Pain citalopram 10 mg Tab: 10 mg = 1 tab(s), Oral, Daily, Refills(s) 0, Depression metoprolol 100 mg ER Tab: 100 mg = 1 tab(s), Oral, Bedtime, Refills(s) 0, High blood pressure, Home Medications (8) Active acetaminophen-hydrocodone 325 mg-5 mg oral tablet 1 tab(s), Oral, q6hr Arava 10 mg oral tablet 10 mg = 1 tab(s), Oral, Daily citalopram 10 mg Tab 10 mg = 1 tab(s), Oral, Daily Lyrica 150 mg Cap 150 mg = 1 cap(s), Oral, BID metoprolol 100 mg ER Tab 100 mg = 1 tab(s), Oral, Bedtime Rinvoq 15 mg oral tablet, extended release 15 mg = 1 tab(s), Oral, Daily Wellbutrin XL 300 mg/24 hours Tab-ER 300 mg = 1 tab(s), Oral, BID Zanaflex 4 mg Tab See Instructions , Medications (6) Active Scheduled: (2) ceFAZolin + Sodium Chloride 0.9% Minibag 50 mL 2 gram 1 EA, IV Piggyback, PREOP tranexamic acid + Generic Diluent 100 mL 1,000 mg 100 mL, IV Piggyback, Once Continuous: (2) Lactated Ringers 1,000 mL 1,000 mL, IV, 150 mL/hr Lactated Ringers 1,000 mL 1,000 mL, IV, 100 mL/hr PRN: (2) HYDROmorphone 1 mg/mL SOLN [F] 0.4 mg 0.4 mL, IV Push, q4min promethazine 12.5 mg + Sodium Chloride 0.9% 50 mL 12.5 mg 0.5 mL, IV Piggyback, Once Problem list: All Problems Bradycardia / SNOMED CT 76352812 / Confirmed High blood pressure / SNOMED CT 8183647250 / Confirmed Rheumatoid arteritis / SNOMED CT 5067963325 / Confirmed 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 Family History: Primary malignant neoplasm of prostate Father Acute myocardial infarction Mother Procedure history: Total shoulder replacement (75560880) on 04/06/2023 at 62 Years. Cervical laminectomy (6210958440). Amputation of finger (114117990). Removal of lung, Partial (16896). Open reduction and internal fixation of fracture Leg (581352990). Foot surgery (9279010427). Lumbar discectomy (787571123). Social History Social & Psychosocial Habits Alcoh (more content not included)... [facility] Basophils Auto (Bld) [#/Vol] on 03-27-2024 Basophils (Bld) [#/Vol] 0.0 10 3/uL 0.0-0.1 [facility] Basophils/100 WBC Auto (Bld) on 03-27-2024 Basophils/100 WBC (Bld) 0.7 % 0.2-2.0 [facility] Eosinophils/100 WBC Auto (Bl d)on 03-27-2024 Eosinophils/100 WBC (Bld) 2.0 % 0.9-7.0 [facility] Erythrocyte distribution wid th Auto (RBC) [Ratio]on 03-27-2024 Erythrocyte distribution width (RBC) [Ratio] 14.7 % 11.0-15.0 [facility] Hematocrit Auto (Bld) [Volum e fraction]on 03-27-2024 Hematocrit (Bld) [Volume fraction] 30.8 % Low 36.0-48.0 [facility] Hemoglobin [Mass/volume] in Bloodon 03-27-2024 Hemoglobin (Bld) [Mass/Vol] 10.0 g/dL Low 12.0-16.0 [facility] Laboratory - Chemistry and C hemistry - challengeon 03-27-2024 Cobalamin (Vitamin B12) [Mass/Vol] 172 pg/mL Abnormal [id number] [facility] Comment on above: Performed at: [place] [id number] Director: Lito Matamoros PhD, Phone: [phone] Laboratory - Hematology and Cell countson 03-27-2024 Immature granulocytes/100 WBC (Bld) 0.5 % 0.0-0.5 [facility] Leukocytes [#/volume] correc fito for nucleated erythrocytes in Blood by Automated counon 03-27-2024 WBC corrected for nucl RBC Auto (Bld) [#/Vol] 4.4 10 3/uL 4.0-11.0 [facility] Lymphocytes Auto (Bld) [#/Vo l]on 03-27-2024 Lymphocytes (Bld) [#/Vol] 1.9 10 3/uL 1.2-3.8 [facility] Lymphocytes/100 WBC Auto (Bl d)on 03-27-2024 Lymphocytes/100 WBC (Bld) 42.3 % 20.5-60.0 [facility] MCH Auto (RBC) [Entitic mass ]on 03-27-2024 MCH (RBC) [Entitic mass] 31.9 pg 26.7-34.0 [facility] MCHC Auto (RBC) [Mass/Vol]on 03-27-2024 MCHC (RBC) [Mass/Vol] 32.5 g/dL 29.9-35.2 [facility] MCV Auto (RBC) [Entitic vol] on 03-27-2024 MCV (RBC) [Entitic vol] 98.4 fL 81.0-99.0 [facility] Monocytes Auto (Bld) [#/Vol] on 03-27-2024 Monocytes (Bld) [#/Vol] 0.6 10 3/uL 0.3-0.8 [facility] Monocytes/100 WBC Auto (Bld) on 03-27-2024 Monocytes/100 WBC (Bld) 12.7 % High 1.7-12.0 [facility] Neutrophils Auto (Bld) [#/Vo l]on 03-27-2024 Neutrophils (Bld) [#/Vol] 1.8 10 3/uL 1.4-6.5 [facility] Neutrophils/100 WBC Auto (Bl d)on 03-27-2024 Neutrophils/100 WBC (Bld) 41.8 % Low 43.0-75.0 [facility] No Panel Informationon 03-27 Eosinophils # (Auto) 0.1 10 3/uL 0.0-0.7 [facility] Folate 14.00 ng/mL 8.60-58.90 [facility] Immature Granulocyte # (Auto) 0.02 10 3/uL 0.00-0.03 [facility] Platelet mean volume Auto (B ld) [Entitic vol]on 03-27-2024 Platelet mean volume (Bld) [Entitic vol] 9.3 fL Low 9.5-13.5 [facility] Platelets Auto (Bld) [#/Vol] on 03-27-2024 Platelets (Bld) [#/Vol] 235 10 3/uL 150-450 [facility] RBC Auto (Bld) [#/Vol]on RBC (Bld) [#/Vol] 3.13 10 6/uL Low 4.20-5.40 [facility] Reticulocytes/100 RBC Auto ( Bld)on 03-27-2024 Reticulocytes/100 RBC (Bld) 2.37 % 0.60-3.10 [facility] Serum or plasma methylmalona te measurement (moles/volume)on 03-27-2024 Methylmalonate [Moles/Vol] 195 nmol/L 0-378 [facility] Comment on above: This test was develo ped and its performance characteristicsdetermined by [employer]. It has not been cleared orapproved by the Food and Drug Administration.Performed at: [address] [id number] Director: Goldy Aparicio MD, Phone: [phone] XR Chest 2 Viewson 4 XR Chest [...] John Neal MD Transcribed by: DANISHA Technologist: CC Technical Comments Radiation Dose: Ka,r in mGy = na DAP = na Normal [facility] BMPon 03-19-2024 Anion gap [Moles/Vol] 9 mmol/L Normal 6-16 [facility] Comment on above: Performed By: #### 2 [id number] #### [facility] [address] [place] [address] Calcium [Mass/Vol] 9.1 mg/dL Normal 8.9-11.1 [facility] Comment on above: Performed By: #### 2 [id number] #### [facility] [address] [place] [address] Chloride [Moles/Vol] 109 mmol/L Normal 101-111 [facility] Comment on above: Performed By: #### 2 [id number] #### [facility] [address] [place] [address] CO2 [Moles/Vol] 27 mmol/L Normal 21-31 [facility] Comment on above: Performed By: #### 2 [id number] #### [facility] [address] [place] [address] Creatinine [Mass/Vol] 1.1 mg/dL Normal 0.5-1.3 [facility] Comment on above: Performed By: #### 2 [id number] #### [facility] [address] [place] [address] Glucose [Mass/Vol] 85 mg/dL Normal 55-199 [facility] Comment on above: Performed By: #### 2 [id number] #### [facility] [address] [place] [address] Potassium [Moles/Vol] 3.8 mmol/L Normal 3.5-5.3 [facility] Comment on above: Performed By: #### 2 [id number] #### [facility] [address] [place] [address] Sodium [Moles/Vol] 141 mmol/L Normal 135-145 [facility] Comment on above: Performed By: #### 2 [id number] #### [facility] [address] [place] [address] Urea nitrogen [Mass/Vol] 17 mg/dL Normal 5-21 [facility] Comment on above: Performed By: #### 2 [id number] #### [facility] [address] [place] [address] Urea nitrogen/Creatinine [Mass ratio] 16 No Units Normal 10-20 [facility] Comment on above: Performed By: #### 2 [id number] #### [facility] [address] [place] [address] CBC w/ Auto Diffon 4 Basophils/100 WBC (Bld) 0.6 % Normal 0.0-2.0 [facility] Comment on above: Performed By: #### 2 000027 #### [facility] [address] [place] [address] Basophils/Leukocyte s Auto (Bld) [Pure # fraction] 0.0 E9/L Normal 0.0-0.2 [facility] Comment on above: Performed By: #### 2 [id number] #### [facility] [address] [place] [address] Eosinophils (Bld) [#/Vol] 0.1 E9/L Normal 0.0-0.5 [facility] Comment on above: Performed By: #### 2 [id number] #### [facility] [address] [place] [address] Eosinophils/100 WBC (Bld) 1.6 % Normal 0.0-8.0 [facility] Comment on above: Performed By: #### 2 [id number] #### [facility] [address] [place] [address] Erythrocyte distribution width (RBC) [Ratio] 14.7 % High 10.9-14.2 [facility] Comment on above: Performed By: #### 2 [id number] #### [facility] [address] [place] [address] Hematocrit (Bld) [Volume fraction] 27.9 % Low 34.0-46.0 [facility] Comment on above: Performed By: #### 2 [id number] #### [facility] [address] [place] [address] Hemoglobin (Bld) [Mass/Vol] 9.8 g/dL Low 12.0-16.0 [facility] Comment on above: Performed By: #### 2 [id number] #### [facility] [address] [place] [address] Lymphocytes (Bld) [#/Vol] 1.1 E9/L Normal 1.0-4.0 [facility] Comment on above: Performed By: #### 2 [id number] #### [facility] [address] [place] [address] Lymphocytes/100 WBC (Bld) 28.9 % Normal 14.0-50.0 [facility] Comment on above: Performed By: #### 2 [id number] #### [facility] [address] [place] [address] MCH (RBC) [Entitic mass] 33.8 pg Normal 27.0-34.0 [facility] Comment on above: Performed By: #### 2 [id number] #### [facility] [address] [place] [address] MCHC (RBC) [Mass/Vol] 35.1 g/dL Normal 31.4-36.0 [facility] Comment on above: Performed By: #### 2 [id number] #### [facility] [address] [place] [address] MCV (RBC) [Entitic vol] 96.2 fL Normal 80.0-100.0 [facility] Comment on above: Performed By: #### 2 [id number] #### [facility] [address] [place] [address] Monocytes (Bld) [#/Vol] 0.6 E9/L Normal 0.2-1.0 [facility] Comment on above: Performed By: #### 2 752655 #### [facility] [address] [place] [address] Neutrophils (Bld) [#/Vol] 2.0 E9/L Normal 2.0-7.5 [facility] Comment on above: Performed By: #### 2 [id number] #### [facility] [address] [place] [address] Neutrophils/100 WBC (Bld) 52.8 % Normal 36.0-75.0 [facility] Comment on above: Performed By: #### 2 [id number] #### [facility] [address] [place] [address] Platelet 211.0 E9/L Normal 150.0-500.0 [facility] Comment on above: Performed By: #### 2 301197 #### [facility] [address] [place] [address] Platelet mean volume (Bld) [Entitic vol] 7.0 fL Normal 6.4-10.8 [facility] Comment on above: Performed By: #### 2 [id number] #### [facility] [address] [place] [address] RBC (Bld) [#/Vol] 2.9 E12/L Low 4.3-5.9 [facility] Comment on above: Performed By: #### 2 [id number] #### [facility] [address] [place] [address] WBC corrected for nucl RBC Auto (Bld) [#/Vol] 3.8 E9/L Low 4.0-11.0 [facility] Comment on above: Result Comment: Mae pheral smear review performed. Performed By: #### 2 [id number] #### [facility] [address] [place] [address] CHEMISTRYOrdered By: SYSTEM SYSTEM on 03-19-2024 Anion [...] 03-19-2024 eGFR 56 mL/min/1.73 m2 Low >=59 [facility] Comment on above: Order Comment: Order added by Discern Expert. Performed By: #### 1 [id number] #### [facility] [address] [place] [address] Basophils Auto (Bld) [#/Vol] on 02-14-2024 Basophils (Bld) [#/Vol] 0.0 10 3/uL 0.0-0.1 [facility] Basophils/100 WBC Auto (Bld) on 02-14-2024 Basophils/100 WBC (Bld) 0.8 % 0.2-2.0 [facility] Eosinophils/100 WBC Auto (Bl d)on 02-14-2024 Eosinophils/100 WBC (Bld) 1.5 % 0.9-7.0 [facility] Erythrocyte distribution wid th Auto (RBC) [Ratio]on 02-14-2024 Erythrocyte distribution width (RBC) [Ratio] 15.1 % High 11.0-15.0 [facility] Hematocrit Auto (Bld) [Volum e fraction]on 02-14-2024 Hematocrit (Bld) [Volume fraction] 35.4 % Low 36.0-48.0 [facility] Hemoglobin [Mass/volume] in Bloodon 02-14-2024 Hemoglobin (Bld) [Mass/Vol] 11.0 g/dL Low 12.0-16.0 [facility] Iron binding capacity [Mass/ volume] in Serum or Plasmaon 02-14-2024 Iron binding capacity [Mass/Vol] 303.0 ug/dL 250.0-450.0 [facility] Iron saturation [Mass Fracti on] in Serum or Plasmaon 02-14-2024 Iron saturation [Mass fraction] 81.2 % [facility] - Chemistry and C hemistry - challengeon 02-14-2024 Cobalamin (Vitamin B12) [Mass/Vol] 225.0 pg/mL 193.0-986.0 [facility] Ferritin [Mass/Vol] 338.0 ng/mL High 8.0-252.0 [facility] Iron [Mass/Vol] 246.0 ug/dL High 50.0-170.0 [facility] Laboratory - Hematology and Cell countson 02-14-2024 Immature granulocytes/100 WBC (Bld) 0.8 % High 0.0-0.5 [facility] Leukocytes [#/volume] correc fito for nucleated erythrocytes in Blood by Automated counon 02-14-2024 WBC corrected for nucl RBC Auto (Bld) [#/Vol] 4.7 10 3/uL 4.0-11.0 [facility] Lymphocytes Auto (Bld) [#/Vo l]on 02-14-2024 Lymphocytes (Bld) [#/Vol] 2.3 10 3/uL 1.2-3.8 [facility] Lymphocytes/100 WBC Auto (Bl d)on 02-14-2024 Lymphocytes/100 WBC (Bld) 48.7 % 20.5-60.0 [facility] MCH Auto (RBC) [Entitic mass ]on 02-14-2024 MCH (RBC) [Entitic mass] 31.9 pg 26.7-34.0 [facility] MCHC Auto (RBC) [Mass/Vol]on 02-14-2024 MCHC (RBC) [Mass/Vol] 31.1 g/dL 29.9-35.2 [facility] MCV Auto (RBC) [Entitic vol] on 02-14-2024 MCV (RBC) [Entitic vol] 102.6 fL High 81.0-99.0 [facility] Monocytes Auto (Bld) [#/Vol] on 02-14-2024 Monocytes (Bld) [#/Vol] 0.6 10 3/uL 0.3-0.8 [facility] Monocytes/100 WBC Auto (Bld) on 02-14-2024 Monocytes/100 WBC (Bld) 13.3 % High 1.7-12.0 [facility] Neutrophils Auto (Bld) [#/Vo l]on 02-14-2024 Neutrophils (Bld) [#/Vol] 1.7 10 3/uL 1.4-6.5 [facility] Neutrophils/100 WBC Auto (Bl d)on 02-14-2024 Neutrophils/100 WBC (Bld) 34.9 % Low 43.0-75.0 [facility] No Panel Informationon 02-13 Eosinophils # (Auto) 0.1 10 3/uL 0.0-0.7 [facility] Immature Granulocyte # (Auto) 0.04 10 3/uL High 0.00-0.03 [facility] Folate 9.40 ng/mL 8.60-58.90 [facility] Platelet mean volume Auto (B ld) [Entitic vol]on 02-14-2024 Platelet mean volume (Bld) [Entitic vol] 9.1 fL Low 9.5-13.5 [facility] Platelets Auto (Bld) [#/Vol] on 02-14-2024 Platelets (Bld) [#/Vol] 197 10 3/uL 150-450 [facility] RBC Auto (Bld) [#/Vol]on RBC (Bld) [#/Vol] 3.45 10 6/uL Low 4.20-5.40 [facility] Basophils Auto (Bld) [#/Vol] on 02-02-2024 Basophils (Bld) [#/Vol] 0.0 10 3/uL 0.0-0.1 [facility] Basophils/100 WBC Auto (Bld) on 02-02-2024 Basophils/100 WBC (Bld) 0.8 % 0.2-2.0 [facility] Eosinophils/100 WBC Auto (Bl d)on 02-02-2024 Eosinophils/100 WBC (Bld) 2.1 % 0.9-7.0 [facility] Erythrocyte distribution wid th Auto (RBC) [Ratio]on 02-02-2024 Erythrocyte distribution width (RBC) [Ratio] 14.2 % 11.0-15.0 [facility] Estimated glomerular filtrat ion rate (GFR) non- Americanon 02-02-2024 GFR/1.73 sq M.predicted among non-blacks MDRD (S/P/Bld) [Vol rate/Area] 51 mL/min/{1.73_m2} Low >=60 [facility] Globulin Calc (S) [Mass/Vol] on 02-02-2024 Globulin (S) [Mass/Vol] 2.9 g/dL [facility] Hematocrit Auto (Bld) [Volum e fraction]on 02-02-2024 Hematocrit (Bld) [Volume fraction] 31.9 % Low 36.0-48.0 [facility] Hemoglobin [Mass/volume] in Bloodon 02-02-2024 Hemoglobin (Bld) [Mass/Vol] 10.2 g/dL Low 12.0-16.0 [facility] Laboratory - Chemistry and C hemistry - challengeon 02-02-2024 Albumin [Mass/Vol] 3.9 g/dL 3.4-5.0 [facility] ALP [Catalytic activity/Vol] 48 U/L 46-116 [facility] ALT [Catalytic activity/Vol] 20 U/L 14-59 [facility] AST [Catalytic activity/Vol] 23 U/L 15-37 [facility] Bilirubin [Mass/Vol] 0.5 mg/dL 0.2-1.0 [facility] Calcium [Mass/Vol] 9.1 mg/dL 8.5-10.1 [facility] Chloride [Moles/Vol] 108 mmol/L High 98-107 [facility] CO2 [Moles/Vol] 24.8 mmol/L 21.0-32.0 [facility] Creatinine [Mass/Vol] 1.09 mg/dL High 0.55-1.02 [facility] GFR/1.73 sq M.predicted MDRD (S/P/Bld) [Vol rate/Area] mL/min/{1.73_m2} >=60 [facility] Glucose [Mass/Vol] 87 mg/dL 74-106 [facility] Potassium [Moles/Vol] 3.9 mmol/L 3.5-5.1 [facility] Protein [Mass/Vol] 6.8 g/dL 6.4-8.2 [facility] Sodium [Moles/Vol] 144 mmol/L 136-145 [facility] Urea nitrogen [Mass/Vol] 17.0 mg/dL 7.0-18.0 [facility] Urea nitrogen/Creatinine [Mass ratio] 15.6 mg/mg [facility] - Hematology and Cell countson 02-02-2024 ESR (Bld) [Velocity] 12 mm/h <=30 [facility] Immature granulocytes/100 WBC (Bld) 0.5 % 0.0-0.5 [facility] Leukocytes [#/volume] correc fito for nucleated erythrocytes in Blood by Automated counon 02-02-2024 WBC corrected for nucl RBC Auto (Bld) [#/Vol] 3.8 10 3/uL Low 4.0-11.0 [facility] Lymphocytes Auto (Bld) [#/Vo l]on 02-02-2024 Lymphocytes (Bld) [#/Vol] 1.5 10 3/uL 1.2-3.8 [facility] Lymphocytes/100 WBC Auto (Bl d)on 02-02-2024 Lymphocytes/100 WBC (Bld) 40.3 % 20.5-60.0 [facility] MCH Auto (RBC) [Entitic mass ]on 02-02-2024 MCH (RBC) [Entitic mass] 31.7 pg 26.7-34.0 [facility] MCHC Auto (RBC) [Mass/Vol]on 02-02-2024 MCHC (RBC) [Mass/Vol] 32.0 g/dL 29.9-35.2 [facility] MCV Auto (RBC) [Entitic vol] on 02-02-2024 MCV (RBC) [Entitic vol] 99.1 fL High 81.0-99.0 [facility] Monocytes Auto (Bld) [#/Vol] on 02-02-2024 Monocytes (Bld) [#/Vol] 0.6 10 3/uL 0.3-0.8 [facility] Monocytes/100 WBC Auto (Bld) on 02-02-2024 Monocytes/100 WBC (Bld) 16.1 % High 1.7-12.0 [facility] Neutrophils Auto (Bld) [#/Vo l]on 02-02-2024 Neutrophils (Bld) [#/Vol] 1.5 10 3/uL 1.4-6.5 [facility] Neutrophils/100 WBC Auto (Bl d)on 02-02-2024 Neutrophils/100 WBC (Bld) 40.2 % Low 43.0-75.0 [facility] No Panel Informationon 02-01 Eosinophils # (Auto) 0.1 10 3/uL 0.0-0.7 [facility] Immature Granulocyte # (Auto) 0.02 10 3/uL 0.00-0.03 [facility] Platelet mean volume Auto (B ld) [Entitic vol]on 02-02-2024 Platelet mean volume (Bld) [Entitic vol] 9.3 fL Low 9.5-13.5 [facility] Platelets Auto (Bld) [#/Vol] on 02-02-2024 Platelets (Bld) [#/Vol] 236 10 3/uL 150-450 [facility] RBC Auto (Bld) [#/Vol]on RBC (Bld) [#/Vol] 3.22 10 6/uL Low 4.20-5.40 [facility] Serum or plasma albumin/glob ulin mass ratioon 02-02-2024 Albumin/Globulin [Mass ratio] 1.3 {ratio} [facility] Serum or plasma anion gap de terminationon 02-02-2024 Anion gap [Moles/Vol] 15.1 mmol/L [facility] XR Shoulder - right 2 Viewso n 11-25-2023 Imaging Result: 4 views right shoulder, Grashey/Zanca/outlet/axilla ry, taken today and saved to the permanent medical record. Prosthesis is unchanged in position and alignment. Fracture at the base of the acromion unchanged in appearance. [facility] XR Shoulder - right 2 Viewso n 11-15-2023 Radiology Study observation (narrative) [facility] Healthcare Office Visiton 11-04-2023 Follow-up visit [id number] Alba Zaidi 1960 F Date Provider Department Center 11/04/2023 Jerry-CAROLINA ZHONG BEAR [facility] Family History Family history unknown: Yes Level of Service:93645 [place] OFFICE/OUTPATIENT ESTABLISHED MOD MDM 30 MIN Reason for Visit and Comments: Follow-up [795639] - 2 year Patient has been taking metoprolol 1 tablet QD Normal [facility] CT Upper Extremity w/o Contr ast [...] MD Transcribed by: DANISHA Technologist: ARNULFO Normal [facility] Lab Miscellaneous-LCon Lab Miscellaneous COMMENT Invalid Interpretation Code [facility] Comment on above: Result Comment: Test Ordered: [id number] Interleukin-6, Serum Interleukin-6, Serum <2.5 pg/mL CB [...] endotracheal intubation or mechanical ventilation. Performed at: [address] [id number] PhD Saturnino Morse Performed By: #### 1 [id number] ####[facility] [address] [place] [address] CBC w/ Auto Diffon 4 Basophil Absolute 0.0 E9/L Normal 0.0-0.2 [facility] Comment on above: Performed By: #### 2 461938, 4639679, 50842354 #### [facility] [address] [place] [address] Basophils/100 WBC (Bld) 0.4 % Normal 0.0-2.0 [facility] Comment on above: Performed By: #### 2 036223, 0294552, [id number] #### [facility] [address] [place] [address] Eos Absolute 0.0 E9/L Normal 0.0-0.5 [facility] Comment on above: Performed By: #### 2 944873, 9652566, 21717615 #### [facility] [address] [place] [address] Eosinophils/100 WBC (Bld) 0.2 % Normal 0.0-8.0 [facility] Comment on above: Performed By: #### 2 522931, 8786966, [id number] #### [facility] [address] [place] [address] Erythrocyte distribution width (RBC) [Ratio] 14.3 % High 10.9-14.2 [facility] Comment on above: Performed By: #### 2 822058, 5819309, 08373648 #### [facility] [address] [place] [address] Hematocrit (Bld) [Volume fraction] 40.0 % Normal 34.0-46.0 [facility] Comment on above: Performed By: #### 2 937041, 4729742, 69616573 #### [facility] [address] [place] [address] Hemoglobin (Bld) [Mass/Vol] 12.7 g/dL Normal 12.0-16.0 [facility] Comment on above: Performed By: #### 2 238375, 7913692, 69106316 #### [facility] [address] [place] [address] Lymph Absolute 0.9 E9/L Low 1.0-4.0 [place] Comment on above: Performed By: #### 2 623781, 6032746, 07945750 #### [facility] [address] [place] [address] Lymphocytes/100 WBC (Bld) 25.2 % Normal 14.0-50.0 [facility] Comment on above: Performed By: #### 2 799586, 7125199, 28566020 #### [facility] [address] [place] [address] MCH (RBC) [Entitic mass] 30.6 pg Normal 27.0-34.0 [facility] Comment on above: Performed By: #### 2 597588, 8992631, 87632414 #### [facility] [address] [place] [address] MCHC (RBC) [Mass/Vol] 31.7 g/dL Normal 31.4-36.0 [facility] Comment on above: Performed By: #### 2 813156, 3619076, 71724606 #### [facility] [address] [place] [address] MCV (RBC) [Entitic vol] 96.5 fL Normal 80.0-100.0 [facility] Comment on above: Performed By: #### 2 027972, 9560884, 68286903 #### [facility] [address] [place] [address] Thurston Absolute 0.3 E9/L Normal 0.2-1.0 [facility] Comment on above: Performed By: #### 2 561271, 3759602, 42447903 #### [facility] [address] [place] [address] Monocytes/100 WBC (Bld) 7.3 % Normal 4.0-14.0 [facility] Comment on above: Performed By: #### 2 637021, 8079180, 26015978 #### [facility] [address] [place] [address] Neutro Absolute 2.3 E9/L Normal 2.0-7.5 [facility] Comment on above: Performed By: #### 2 383383, 4509468, 76777450 #### [facility] [address] [place] [address] Neutro Auto 66.9 % Normal 36.0-75.0 [facility] Comment on above: Performed By: #### 2 422863, 4273901, 64867015 #### [facility] [address] [place] [address] Platelet 257.0 E9/L Normal 150.0-500.0 [facility] Comment on above: Performed By: #### 2 702608, 4583528, 96274200 #### [facility] [address] [place] [address] Platelet mean volume (Bld) [Entitic vol] 7.4 fL Normal 6.4-10.8 [facility] Comment on above: Performed By: #### 2 297819, 2236584, 11459021 #### [facility] [address] [place] [address] RBC 4.1 E12/L Low 4.3-5.9 [facility] Comment on above: Performed By: #### 2 650670, 4690202, 64129378 #### [facility] [address] 8[address] WBC 3.4 E9/L Low 4.0-11.0 [facility] Comment on above: Performed By: #### 2 314801, 9663974, 33885832 #### [facility] [address] [place] [address] CHEMISTRYOrdered By: SYSTEM SYSTEM on 09-06-2023 CRP mg/dL Normal <=1.9mg/dL Remisol Chem CRPon 09-06-2023 CRP [Mass/Vol] mg/L Normal <=1.9 [place] Comment on above: Performed By: #### 2 886612, 3495712, 44334647 #### [facility] [address] [place] [address] Consent for Treatmenton 08-12 Consent for Treatment [id number]#1.00TIFF Normal [facility] HEMATOLOGYOrdered By: SYSTEM SYSTEM on 09-06-2023 [...] Normal 80.0 - 100.0 fL Remisol Heme [place] Absolute 0.3 E9/L Normal 0.2 - 1.0 [...] 14 mm/h Normal 0 - 34 mm/hr [facility] HemeAutoSS Lab Miscellaneous-LCon 09-06 Test Code 102638 Invalid Interpretation Code [facility] Comment on above: Performed By: #### 1 [id number] ####[facility] [address] [place] [address] Test Name interleukin 6 Invalid Interpretation Code [facility] Comment on above: Performed By: #### 1 [id number] ####[facility] [address] [place] [address] Physician Orderon 09-06-2023 Physician Order [id number]#1.00TIFF Normal [facility] Reference Laboratory Testing Ordered By: Jojo Gonsales on 09-06-2023 Test Code 449333 1 Invalid Interpretation Code [facility] SendOutsSS Test Name interleukin 6 Invalid Interpretation Code [facility] SendOutsSS Sed Rate Automatedon 024 ESR (Bld) [Velocity] 14 mm/h Normal 0-34 [facility] Comment on above: Performed By: #### 2 883869, 3258682, 90569448 #### [facility] [address] [place] [address] Physician Orderon 08-31-2023 Physician Order [id number]#1.00TIFF Normal [facility] Basophils Auto (Bld) [#/Vol] on 08-30-2023 Basophils (Bld) [#/Vol] 0.0 10 3/uL 0.0-0.1 [facility] Basophils/100 WBC Auto (Bld) on 08-30-2023 Basophils/100 WBC (Bld) 0.8 % 0.2-2.0 [facility] Cholesterol in LDL Calc [Mas s/Vol]on 08-30-2023 Cholesterol in LDL [Mass/Vol] 152.0 mg/dL [facility] Comment on above: <100 mg/dl [id number] 0-129 mg/dl NEAR OR ABOVE [id number] mg/dl BORDERLINE [id number] mg/dl HIGH>190 mg/dl VERY HIGH Cholesterol in VLDL Calc [Ma ss/Vol]on 08-30-2023 Cholesterol in VLDL [Mass/Vol] 20.2 mg/dL [facility] Eosinophils/100 WBC Auto (Bl d)on 08-30-2023 Eosinophils/100 WBC (Bld) 4.2 % 0.9-7.0 [facility] Erythrocyte distribution wid th Auto (RBC) [Ratio]on 08-30-2023 Erythrocyte distribution width (RBC) [Ratio] 13.4 % 11.0-15.0 [facility] Estimated glomerular filtrat ion rate (GFR) non- Americanon 08-30-2023 GFR/1.73 sq M.predicted among non-blacks MDRD (S/P/Bld) [Vol rate/Area] 59 mL/min/{1.73_m2} >=60 [facility] Globulin Calc (S) [Mass/Vol] on 08-30-2023 Globulin (S) [Mass/Vol] 3.4 g/dL [facility] Hematocrit Auto (Bld) [Volum e fraction]on 08-30-2023 Hematocrit (Bld) [Volume fraction] 39.5 % 36.0-48.0 [facility] Hemoglobin [Mass/volume] in Bloodon 08-30-2023 Hemoglobin (Bld) [Mass/Vol] 12.5 g/dL 12.0-16.0 [facility] Laboratory - Chemistry and C hemistry - challengeon 08-30-2023 Albumin [Mass/Vol] 3.7 g/dL 3.4-5.0 [facility] ALP [Catalytic activity/Vol] 45 U/L 46-116 [facility] ALT [Catalytic activity/Vol] 23 U/L 14-59 [facility] AST [Catalytic activity/Vol] 21 U/L 15-37 [facility] Bilirubin [Mass/Vol] 0.4 mg/dL 0.2-1.0 [facility] Calcium [Mass/Vol] 9.0 mg/dL 8.5-10.1 [facility] Chloride [Moles/Vol] 106 mmol/L 98-107 [facility] Cholesterol [Mass/Vol] 246 mg/dL <=200 [facility] Cholesterol in HDL [Mass/Vol] 74 mg/dL 40-60 [facility] Comment on above: > or =60 mg/dl - LOW CARDIOVASCULAR RISK<40 mg/dl - HIGH CARDIOVASCULAR RISK CO2 [Moles/Vol] 25.5 mmol/L 21.0-32.0 [facility] Creatinine [Mass/Vol] 0.96 mg/dL 0.55-1.02 [facility] GFR/1.73 sq M.predicted MDRD (S/P/Bld) [Vol rate/Area] mL/min/{1.73_m2} >=60 [facility] Glucose [Mass/Vol] 86 mg/dL 74-106 [facility] Potassium [Moles/Vol] 3.8 mmol/L 3.5-5.1 [facility] Protein [Mass/Vol] 7.1 g/dL 6.4-8.2 [facility] Sodium [Moles/Vol] 142 mmol/L 136-145 [facility] Triglyceride [Mass/Vol] 101 mg/dL <=150 [facility] TSH Qn 1.531 m[IU]/L 0.358-3.740 [facility] Urea nitrogen [Mass/Vol] 20.0 mg/dL 7.0-18.0 [facility] Urea nitrogen/Creatinine [Mass ratio] 20.8 mg/mg [facility] - Hematology and Cell countson 08-30-2023 ESR (Bld) [Velocity] 16 mm/h <=30 [facility] Immature granulocytes/100 WBC (Bld) 0.3 % 0.0-0.5 [facility] Leukocytes [#/volume] correc fito for nucleated erythrocytes in Blood by Automated counon 08-30-2023 WBC corrected for nucl RBC Auto (Bld) [#/Vol] 3.8 10 3/uL 4.0-11.0 [facility] Lymphocytes Auto (Bld) [#/Vo l]on 08-30-2023 Lymphocytes (Bld) [#/Vol] 1.7 10 3/uL 1.2-3.8 [facility] Lymphocytes/100 WBC Auto (Bl d)on 08-30-2023 Lymphocytes/100 WBC (Bld) 44.8 % 20.5-60.0 [facility] MCH Auto (RBC) [Entitic mass ]on 08-30-2023 MCH (RBC) [Entitic mass] 31.1 pg 26.7-34.0 [facility] MCHC Auto (RBC) [Mass/Vol]on 08-30-2023 MCHC (RBC) [Mass/Vol] 31.6 g/dL 29.9-35.2 [facility] MCV Auto (RBC) [Entitic vol] on 08-30-2023 MCV (RBC) [Entitic vol] 98.3 fL 81.0-99.0 [facility] Monocytes Auto (Bld) [#/Vol] on 08-30-2023 Monocytes (Bld) [#/Vol] 0.5 10 3/uL 0.3-0.8 [facility] Monocytes/100 WBC Auto (Bld) on 08-30-2023 Monocytes/100 WBC (Bld) 14.1 % 1.7-12.0 [facility] Neutrophils Auto (Bld) [#/Vo l]on 08-30-2023 Neutrophils (Bld) [#/Vol] 1.4 10 3/uL 1.4-6.5 [facility] Neutrophils/100 WBC Auto (Bl d)on 08-30-2023 Neutrophils/100 WBC (Bld) 35.8 % 43.0-75.0 [facility] No Panel Informationon 08-30 Eosinophils # (Auto) 0.2 10 3/uL 0.0-0.7 [facility] Immature Granulocyte # (Auto) 0.01 10 3/uL 0.00-0.03 [facility] Platelet mean volume Auto (B ld) [Entitic vol]on 08-30-2023 Platelet mean volume (Bld) [Entitic vol] 9.1 fL 9.5-13.5 [facility] Platelets Auto (Bld) [#/Vol] on 08-30-2023 Platelets (Bld) [#/Vol] 181 10 3/uL 150-450 [facility] RBC Auto (Bld) [#/Vol]on RBC (Bld) [#/Vol] 4.02 10 6/uL 4.20-5.40 [facility] Serum or plasma albumin/glob ulin mass ratioon 08-30-2023 Albumin/Globulin [Mass ratio] 1.1 {ratio} [facility] Serum or plasma anion gap de terminationon 08-30-2023 Anion gap [Moles/Vol] 14.3 mmol/L [facility] Serum or plasma total choles terol/high density lipoprotein (HDL) cholesterol mass albina 08-30-2023 Cholesterol.total/C holesterol in HDL [Mass ratio] 3.3 {ratio} [facility] Comment on above: 3.3 - 4.4 [...] No obvious fractures at the coracoid process. [facility] [place] XR Shoulder - right 2 Viewso n 08-18-2023 Radiology Study observation (narrative) [facility] IntraOperative Documentson 1 IntraOperative Documents [id number]#1.00CD:127 Normal [facility] Auto Diffon 04-07-2023 Basophils/100 WBC (Bld) 0.2 % Normal 0.0-2.0 [facility] Comment on above: Order Comment: Order Added by Discern Expert. Performed By: #### 2 113008, 0554743, 9705040, 5479863, 51036683, 8700964 #### [facility] [address] [place] [address] Basophils/Leukocyte s Auto (Bld) [Pure # fraction] 0.0 E9/L Normal 0.0-0.2 [facility] Comment on above: Order Comment: Order Added by Discern Expert. Performed By: #### 2 552366, 1317867, 1754962, 4810696, 38972043, 2961871 #### [facility] [address] [place] [address] Eosinophils/100 WBC (Bld) 0.0 % Normal 0.0-8.0 [facility] Comment on above: Order Comment: Order Added by Discern Expert. Performed By: #### 2 674556, 1419263, 6191213, 3588164, 03096909, 0734144 #### [facility] [address] [place] [address] Eosinophils/Leukocy elli Auto (Bld) [Pure # fraction] 0.0 E9/L Normal 0.0-0.5 [facility] Comment on above: Order Comment: Order Added by Discern Expert. Performed By: #### 2 166353, 1129303, 4283014, 7799110, 82805533, 4832806 #### [facility] [address] [place] [address] Lymphocytes/100 WBC (Bld) 7.9 % Low 14.0-50.0 [facility] Comment on above: Order Comment: Order Added by Discern Expert. Performed By: #### 2 120881, 0088461, 3739929, 5917855, 42867522, 5812529 #### [facility] [address] [place] [address] Lymphocytes/Leukocy elli Auto (Bld) [Pure # fraction] 0.8 E9/L Low 1.0-4.0 [facility] Comment on above: Order Comment: Order Added by Discern Expert. Performed By: #### 2 125805, 5106391, 8071785, 6687605, 95701788, 3056251 #### [facility] [address] [place] [address] Monocytes/100 WBC (Bld) 14.0 % Normal 4.0-14.0 [facility] Comment on above: Order Comment: Order Added by Discern Expert. Performed By: #### 2 171838, 1719000, 4921645, 5632984, 13255389, 4497370 #### [facility] [address] [place] [address] Monocytes/Leukocyte s Auto (Bld) [Pure # fraction] 1.3 E9/L High 0.2-1.0 [facility] Comment on above: Order Comment: Order Added by Discern Expert. Performed By: #### 2 729572, 4295408, 4001387, 8729603, 98545279, 2043723 #### [facility] [address] [place] [address] Neutrophils/100 WBC (Bld) 77.9 % High 36.0-75.0 [facility] Comment on above: Order Comment: Order Added by Discern Expert. Performed By: #### 2 252765, 6398903, 8747343, 9750822, 92493254, 7529461 #### [facility] [address] [place] [address] Neutrophils/Leukocy elli Auto (Bld) [Pure # fraction] 7.5 E9/L Normal 2.0-7.5 [facility] Comment on above: Order Comment: Order Added by Discern Expert. Performed By: #### 2 019068, 2987380, 9568788, 6442495, 11084067, 1446772 #### [facility] [address] [place] [address] BUNon 04-07-2023 Urea nitrogen [Mass/Vol] 20 mg/dL Normal 5-21 [facility] Comment on above: Performed By: #### 2 483451, 8784760, 3605343, 2167563, 78395934, 0949769 #### [facility] [address] [place] [address] CBC w/ Auto Diffon Erythrocyte distribution width (RBC) [Ratio] 14.6 % High 10.9-14.2 [facility] Comment on above: Performed By: #### 2 193344, 6764192, 1516791, 5750846, 25902444, 8873498 #### [facility] [address] [place] [address] Hematocrit (Bld) [Volume fraction] 29.7 % Low 34.0-46.0 [facility] Comment on above: Performed By: #### 2 703702, 9997539, 0832530, 4868984, 49722096, 4508550 #### [facility] [address] [place] [address] Hemoglobin (Bld) [Mass/Vol] 10.0 g/dL Low 12.0-16.0 [facility] Comment on above: Performed By: #### 2 820770, 8072260, 4112325, 4193398, 71013567, 1234712 #### [facility] [address] [place] [address] MCH (RBC) [Entitic mass] 32.5 pg Normal 27.0-34.0 [facility] Comment on above: Performed By: #### 2 673818, 1628448, 1927774, 0748882, 51414611, 1736066 #### [facility] [address] [place] [address] MCHC (RBC) [Mass/Vol] 33.6 g/dL Normal 31.4-36.0 [facility] Comment on above: Performed By: #### 2 390035, 7635572, 1171601, 9364884, 89375344, 9420903 #### [facility] [address] [place] [address] MCV (RBC) [Entitic vol] 96.7 fL Normal 80.0-100.0 [facility] Comment on above: Performed By: #### 2 278463, 0103277, 1011102, 8072800, 63962019, 1574954 #### [facility] [address] [place] [address] Platelet mean volume (Bld) [Entitic vol] 7.1 fL Normal 6.4-10.8 [facility] Comment on above: Performed By: #### 2 360696, 5504080, 0780894, 9692703, 06229418, 7308930 #### [facility] [address] [place] [address] Platelets (Bld) [#/Vol] 215.0 E9/L Normal 150.0-500.0 [facility] Comment on above: Performed By: #### 2 754003, 0901812, 8327625, 6240184, 58799784, 5213062 #### [facility] [address] [place] [address] RBC (Bld) [#/Vol] 3.1 E12/L Low 4.3-5.9 [facility] Comment on above: Performed By: #### 2 787529, 7341659, 3803336, 7165682, 75335698, 0071713 #### [facility] [address] [place] [address] WBC corrected for nucl RBC Auto (Bld) [#/Vol] 9.6 E9/L Normal 4.0-11.0 [facility] Comment on above: Performed By: #### 2 241346, 6792744, 2866943, 5100051, 05163963, 9380263 #### [facility] [address] [place] [address] CHEMISTRYOrdered By: SYSTEM SYSTEM on 04-07-2023 Anion gap [Moles/Vol] 6 mmol/L Normal 6 - 16 mEq/L [facility] Remisol Chloride [Moles/Vol] 118 mmol/L High 101 - 111 mmol/L FT [facility] CO2 [Moles/Vol] 23 mmol/L Normal 21 - 31 mmol/L FT [facility] Creatinine [Mass/Vol] 0.9 mg/dL Normal 0.5 - 1.3 mg/dL [facility] Remisol GFR/1.73 sq M.predicted among non-blacks MDRD (S/P/Bld) [Vol rate/Area] 72 mL/min/1.73 m2 Normal >=59mL/min/ 1.73 m2 [facility] Chem S Comment on above: Interpretive Data: C hronic kidney disease could be indicated at eGFR's of less than 60 mL/min/1.73m2. Kidney failure is indicated at less than 15 mL/min/1.73m2. Potassium [Moles/Vol] 4.0 mmol/L Normal 3.5 - 5.3 mmol/L FT [facility] Sodium [Moles/Vol] 143 mmol/L Normal 135 - 145 mmol/L [facility] Urea nitrogen [Mass/Vol] 20 mg/dL Normal 5 - 21 mg/dL FT [facility] Consent for Anesthesiaon Consent for Anesthesia [id number]#[id number]:127 Normal [facility] Creatinineon 04-07-2023 Creatinine [Mass/Vol] 0.9 mg/dL Normal 0.5-1.3 [facility] Comment on above: Performed By: #### 2 976036, 2078104, 6669926, 9757293, 77974433, 8000384 ####[facility] [address] [place] [address] Discharge Instructionson Discharge Instructions [id number]#[id number]:127 Normal [facility] Discharge Note-Nursingon Discharge Note-Nursing DYANRADHA :1960 Visit Date:04/06/2023 Inpatient Discharge Instructions Your [...] Pending Diagnostic Test Results None Pharmacy Information [facility]- Tabitha New Follow Up Appointments after Discharge Follow Up with Jordan Yuan When: Where: [address] [place] [place] [address]- Business (1) Follow Up with JOHN ASHBY When: In 0 days Where: [address], [place] [address]- Business (1) Medications What How Much When Instructions Next Dose Changed acetaminophen-oxycodone (Percocet 5 mg-325 mg oral tablet) See instructions 1-2 tab(s) Oral q4hr Pickup at [facility]/pharmacy #[id number] Next dose due after 10am Unchanged buPROPion (Wellbutrin XL 300 mg/ 24 hours Tab-ER) 1 Tablets By Mouth 2 times a day 04/07/23 @ 9pm Unchanged celecoxib (CeleBREX 100 mg Cap) 1 Capsules By Mouth 2 times a day as needed for for pain Pickup at [facility]/pharmacy #6177 04/07/23 @ 9pm Unchanged cephalexin (Keflex 500 mg Cap) 1 Capsules By Mouth Every 8 hours Duration: 7 Days Pickup at [facility]/pharmacy #6177 04/07/23 @ 2pm and bedtime Unchanged docusate (Colace 100 mg Cap) 1 Capsules By Mouth 2 times a day as needed for for constipation Pickup at [facility]/pharmacy #6177 04/07/23 @ 9pm Unchanged [...] Every day 04/08/23 @ 9am Pharmacy Information [facility]/pharmacy #[id number]: [address], [place] [id number] [phone] Test Results CBC BMP WBC: 9.6 E9/L [...] Lateralized/ 24, Shoulder Implant 04/06/2023 [facility] [place] humeral Stem Size 9, Shoulder Implant 04/06/2023 [employer] SutureCap, 36 neutral, shoulder Implant 04/06/2023 [facility] Humeral Insert, small, 36, +6, Shoulder (more content not included)... Normal [facility] HEMATOLOGYOrdered By: SYSTEM SYSTEM on 04-07-2023 [...] Inpatient Clinical Summaryon 04-07-2023 Inpatient Clinical Summary [address] [address] Clinical Summary Person Information: Name: RADHA ZAIDI Age: 62 Years : 1960 Sex: Female PCP: JOHN ASHBY DO Marital Status: Phone: [phone] Race: White Ethnicity: Non- or Language: Telugu Visit Id: Visit Reason: OA RIGHT SHOULDER Speciality: Acuity: Enc Type: Observation Med Service: Medical Arrival: 04/06/2023 06:09:55 Discharge: Dispo Type: Address: [address] [place] [address] [place] [id number] Provider Notes: Patient: RADHA ZAIDI Age: 62 [...] Follow up: With: Address: When: Jordan Yuan [facility] [place] [address] Business (1) 04/19/2023 2:15 PM With: Address: When: JOHN ASHBY [address] [place] [address] Business (1) Patient Education Information: Iris Yuan - Shoulder Replacement (Custom) Normal [facility] Inpatient Patient Summaryon 04-07-2023 Inpatient Patient Summary [address] [address] Patient Discharge Instructions PERSON INFORMATION Name: DYANRADHA Date of : 1960 Current Date: 04/07/2023 [...] Follow up: With: Address: When: Jordan Yuan [address] [place] [address] Business (1) 04/19/2023 2:15 PM With: Address: When: JOHN ASHBY [address] [place] [address] Business (1) In the event that [...] That Have Changed [facility], [address], [place] [id number], [phone] START: acetaminophen-oxycodone (Percocet 5 mg-325 mg oral tablet) 1-2 tab(s) Oral q4hr. Refills: 0. Last Dose: Ne xt Dose: STOP: acetaminophen-oxycodone (Percocet 5 mg-325 mg oral tablet) 1 Tablets By Mouth 3 times a day. Medications to Continue with No Changes [facility], [address], [place] [id number], [phone] celecoxib (CeleBREX 100 mg Cap) 1 Capsules [...] Lu (419) (more content not included)... Normal [facility] IntraOperative Documentson 0 04-07-2023 IntraOperative Documents [id number]#[id number]:127 Normal [facility] IntraOperative Documents [id number]#[id number]:127 Normal [facility] Lyteson 04-07-2023 Anion gap [Moles/Vol] 6 mmol/L Normal 6-16 [facility] Comment on above: Performed By: #### 2 546659, 6249926, 0070820, 2876763, 35799128, 3099672 ####[facility] [address] [place] [address] Chloride [Moles/Vol] 118 mmol/L High 101-111 [facility] Comment on above: Performed By: #### 2 433306, 7851449, 2581505, 9492683, 58614662, 8332708 ####[facility] [address] [place] [address] CO2 [Moles/Vol] 23 mmol/L Normal 21-31 [facility] Comment on above: Performed By: #### 2 540214, 7698594, 4992591, 3937214, 11196845, 7063761 ####[facility] [address] [place] [address] Potassium [Moles/Vol] 4.0 mmol/L Normal 3.5-5.3 [facility] Comment on above: Performed By: #### 2 071321, 6114207, 7196579, 3172796, 36587629, 5163486 ####[facility] [address] [place] [address] Sodium [Moles/Vol] 143 mmol/L Normal 135-145 [facility] Comment on above: Performed By: #### 2 448768, 9919621, 1536562, 5134459, 29884467, 8829099 ####[facility] [address] [place] [address] Main [place] Intraoperative Recor don 04-07-2023 Main OR Intraoperative Record IntraOp Document Type FT Summary Primary Physician: Jordan Yuan DO Finalized Date/Time: 04/07/23 14:30:58 Pt. Name: DYANRADHA/Sex: 1960 Female Med Rec #: [id number] Physician: Jordan Yuan DO Financial #: [id number] Pt. Type: A Room/Bed: [place] [address] Admit/Disch: 04/06/23 06:09:55 - 04/07/23 09:30:00 Institution: Case Times FT Entry 1 Patient Times In Room 04/06/23 09:32:00 Out Room 04/06/23 11:36:00 Procedure Times Start 04/06/23 10:14:00 Stop 04/06/23 11:30:00 Anesthesia Times Start 04/06/23 09:32:00 Stop 04/06/23 11:36:00 Block Timeout w/ 04/06/23 08:24:00 Anesthesia Last Modified By: Susi HARO, Dennis Curry 04/06/23 11:35:46 General Comments: Right shoulder block performed by under ultrasound guidance. ESTRELLITA De La Fuente to assist with the block. Block timeout at 0824. Patient's heartrate-78, SPo2- 100% on room air. patient tolerated block well. Block start at 0833. Block end at 0836. Patient transported via cart back to [facility] bay [facility] and placed on SP02 monitor by ESTRELLITA De La Fuente. -ESTRELLITA Tomlin 04/07/23 Chart opened to review and send charges [facility] CSFA Case Attendance FT Entry 1 Entry 2 Entry 3 Case Attendee Idris DIRECTOR STRATEGIC ACCOUNT MANAGEMENT, Adiel Yuan DO, Jordan Goldman RN, Dennis Curry Role Performed DIRECTOR STRATEGIC ACCOUNT MANAGEMENT Surgeon - Primary Supervisor Facepiece Line - Primary Time In 04/06/23 09:32:00 04/06/23 10:05:00 04/06/23 09:32:00 Time Out 04/06/23 11:36:00 04/06/23 11:16:00 04/06/23 11:36:00 Procedure SHOULDER TOTAL SHOULDER TOTAL SHOULDER TOTAL ARTHROPLASTY(Right) ARTHROPLASTY(Right) ARTHROPLASTY(Right) Comments , anesthesia supervisor rolling room Last Modified By: Wanda FEATHER MAKER, Sharmaine Goldman RN, Dennis Goldman RNDennis 04/07/23 14:28:51 04/06/23 11:35:47 04/06/23 11:35:47 Entry 4 Entry 5 Entry 6 Case Attendee Valerie MARI, Jena Taylor CST, John Role Performed Scrub - Primary Scrub - Primary FEATHER MAKER/SA Time In 04/06/23 09:32:00 04/06/23 09:32:00 04/06/23 [...] Yuan DO, Krupp RN, Dennis Curry, Valerie FEATHER MAKER, Johnathan Hernandez Sydney A, Wilhelm CST, Alfredo [...] traffic control (more content not included)... Normal [facility] Main OR PACU I Recordon 03-12 Main OR PACU I Record PACU Phase I Document Type FT Summary Primary Physician: Jordan Yuan DO Finalized Date/Time: 04/07/23 08:05:19 Pt. Name: DYANRADHA/Sex: 1960 Female Med Rec #: [id number] Physician: Jordan Yuan DO Financial #: [id number] Pt. Type: O Room/Bed: N305/01 Admit/Disch: 04/06/23 06:09:55 - Institution: Case Times [...] 08:04 Cate Gonsales RN 04/07/23 08:05 Normal [facility] Patient Education - Texton 0 04-07-2023 Patient Education - Text [place], [place] [facility] DISCHARGE INSTRUCTIONS: SHOULDER REPLACEMENT [...] persistent vomiting. Jordan Yuan DO [facility] [address] [place] [address] Reviewed: [facility] Preoperative Documentson Preoperative Documents [id number]:127 [facility] Progress Note-Physicianon Progress Note-Physician Patient: RADHA ZAIDI [...] Pressure 63 mmHg SpO2 94 % Normal [facility] Comment on above: Result Comment: Elec tronically Signed By: Jordan Yuan DO\.br\Date and Time Signed: 04/07/23 07:40 EDT eGFRon 04-07-2023 GFR/1.73 sq M.predicted among non-blacks MDRD (S/P/Bld) [Vol rate/Area] 72 mL/min/1.73 m2 Normal >=59 [facility] Comment on above: Order Comment: Order added by Discern Expert. Result Comment: Associate Professor Of Theatre dina kidney disease could be indicated at eGFR's of less than 60 mL/min/1.73m2. Kidney failure is indicated at less than 15 mL/min/1.73m2. Performed By: #### 2 192798, 8253767, 5291877, 2489837, 43123857, 6667938 ####[facility] [address] [place] [address] ABO/Rhon 04-06-2023 ABO/Rh Positive Invalid Interpretation Code [facility] Comment on above: Performed By: #### 1 [id number], 71746125, 19284288, 7412844 ####[facility] [address] [place] [address] ABO/Rh History Checkon 04-06 ABO/Rh History Check Verified Hx Blood Type Normal [facility] Comment on above: Performed By: #### 1 3994866, 07360150, 75123752, 3682286 ####[facility] [address] [place] [address] ABSCon 04-06-2023 ABSC Gel Interp Negative Normal [facility] Comment on above: Performed By: #### 1 6668415, 68309256, 73106577, 3407520 ####[facility] [address] [place] [address] BLOOD BANKOrdered By: Andra Nunez on 04-06-2023 ABO/Rh Interp Positive Invalid Interpretation Code [facility] BB Subsection ABSC Gel Interp Negative (04/06/23 7:23 AM) Normal [facility] BB Subsection Blood Bank ID#on 04-06-2023 BBID# [id number] Invalid Interpretation Code [facility] Comment on above: Performed By: #### 1 9379942, 33058538, 14752299, 4222497 ####[facility] [address] [place] [address] Consent for Treatmenton 03-12 Consent for Treatment [id number]#1.00CD:127 [facility] H&P Updateon 04-06-2023 H&P Update [id number]#1.00CD:127 [facility] Insurance Correspondence Off iceon 04-06-2023 Insurance Correspondence Office [id number]#1.00CD:127 [facility] Main OR Preoperative Recordo n 04-06-2023 Main OR Preoperative Record PreOp Document Type FT Summary Primary Physician: Jordan Yuan DO Finalized Date/Time: 04/06/23 09:32:24 Pt. Name: DYANRADHA/Sex: 1960 Female Med Rec #: [id number] Physician: Jordan Yuan DO Financial #: [id number] Pt. Type: A Room/Bed: 11/08 Admit/Disch: 04/06/23 [...] By: Dennis Goldman RN 04/06/23 09:32 Normal [facility] Monitor Recordon 04-06-2023 Monitor Record [id number]#1.00CD:127 [facility] Monitor Record [id number]#1.00CD:127 [facility] Monitor Record [id number]#1.00CD:127 Normal [facility] Operative Reporton Operative Report Patient: ELIZABET ZAIDI Age: 62 years Sex: Female : 1960 Associated Diagnoses: None Author: Jordan Yuan DO DATE OF SURGERY: 04/06/2023 SURGEON: Jordan Yuan D.O. CHROME PLATER HELPER: Anival Flores CFA PREOPERATIVE DIAGNOSIS: Massive rotator [...] 3. size +6 humeral insert 4. Revers [place] size 9 stem with 36 (neutral) Suturecup OPERATIVE INDICATIONS: Radha is a 62-year-old tsyqd-wjdt-aiwpljgi female who has had persistent right shoulder [...] The depth-stop (more content not included)... Normal [facility] Comment on above: Result Comment: Elec tronically Signed By: Jordan Yuan DO\.br\Date and Time Signed: 04/06/23 15:39 EDT Operative Report Patient: ELIZABET ZAIDI [...] patient tolerated the procedure as expected. Normal [facility] Comment on above: Result Comment: Elec tronically Signed By: Yanick Rai DO\.br\Date and Time Signed: 04/06/23 08:44 EDT Progress Note-Physicianon Progress Note-Physician Patient: RADHA ZAIDI Age: 62 years Sex: Female : 1960 Associated Diagnoses: None Author: Yanick Rai DO Postoperative Information Postoperative disposition: Postoperative disposition: To PACU. Optimetrix number: Optimetrix number [id number]. Anesthetic utilized: General. Regional: Interscalene Block. Health [...] pain, # 60 cap(s), Refills(s) 0, Pharmacy: [facility]/pharmacy #[id number], 160, cm, 03/25/23 6:16:00 EDT, Height/Length Dos (more content not included)... 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 Family History: Primary malignant neoplasm of prostate Father Acute myocardial infarction Mother Procedure history: Cervical laminectomy (4932935443). Amputation of finger (668376957). Removal of lung, Partial (70135). Open reduction and internal fixation of fracture Leg (587652112). Foot surgery (1087560528). Lumbar discectomy (241820222). Social History Social & Psychosocial Habits Alcohol [...] (APR 06 06:39) SpO2 95 % (APR 06:39) Airway: Mallampati classification: II (soft palate, fauces, uvula visible). Distance: Mentohyoid, Interincisive, Thyromental, Mentosternal, Adequate. HENT: Normocephalic. Respiratory: Lungs are clear to auscultation. (more content not included)... Normal [facility] Comment on above: Result Comment: Elec [...] mGy = na DAP = na Normal [facility] Consent for Procedure/Surger yon 04-05-2023 Consent for Procedure/Surgery [id number]#1.00CD:[address] [facility] [address] Upper Extremity w/o Contr ast [...] DO Transcribed by: DANISHA Technologist: CONSTANTINO Normal [facility] ABO/Rh Retypeon 03-24-2023 ABO/Rh Retype Interp Positive Invalid Interpretation Code [facility] Comment on above: Performed By: #### 1 7503287 ####[facility] [address] [place] [address] BLOOD BANKOrdered By: Andra Longoria on 03-24-2023 ABO/Rh Retype Interp Positive Invalid Interpretation Code [facility] BB Subsection BUNon 03-24-2023 Urea nitrogen [Mass/Vol] 28 mg/dL High 5-21 [facility] Comment on above: Performed By: #### 1 0213441, 8015107, 7333375, 7553797, 0345605, 5601253 ####[facility] [address] [place] [address] CBC w/Indiceson 03-24-2023 Erythrocyte distribution width (RBC) [Ratio] 14.5 % High 10.9-14.2 [facility] Comment on above: Performed By: #### 1 5003931, 0129059, 6465572, 8227040, 2038444, 0820099 ####[facility] [address] [place] [address] Hematocrit (Bld) [Volume fraction] 35.9 % Normal 34.0-46.0 [facility] Comment on above: Performed By: #### 1 0121838, 8847745, 0688091, 3754338, 9958878, 8941347 ####[facility] [address] [place] [address] Hemoglobin (Bld) [Mass/Vol] 11.9 g/dL Low 12.0-16.0 [facility] Comment on above: Performed By: #### 1 9398805, 8664379, 9704079, 8836097, 7107365, 9100230 ####[facility] [address] [place] [address] MCH (RBC) [Entitic mass] 32.3 pg Normal 27.0-34.0 [facility] Comment on above: Performed By: #### 1 3645037, 2976673, 5505716, 4772400, 2796685, 5214916 ####[facility] [address] [place] [address] MCHC (RBC) [Mass/Vol] 33.1 g/dL Normal 31.4-36.0 [facility] Comment on above: Performed By: #### 1 5087724, 9578941, 3642851, 6086771, 1056363, 1813072 ####[place] [place] [address] MCV (RBC) [Entitic vol] 97.4 fL Normal 80.0-100.0 [facility] Comment on above: Performed By: #### 1 7277460, 3851621, 4667691, 4136542, 7196929, 0254141 ####[place] [address] [place] [address] Platelet mean volume (Bld) [Entitic vol] 7.4 fL Normal 6.4-10.8 [facility] Comment on above: Performed By: #### 1 4114836, 2815653, 2066324, 0505564, 9910663, 5457436 ####[address] [address] Platelets (Bld) [#/Vol] 207.0 E9/L Normal 150.0-500.0 [facility] Comment on above: Performed By: #### 1 4957081, 8167335, 9978519, 7803288, 1201176, 3687741 ####[address] [address] RBC (Bld) [#/Vol] 3.7 E12/L Low 4.3-5.9 [facility] Comment on above: Performed By: #### 1 4210207, 3298171, 2596590, 3980618, 1518372, 5346464 ####[address] [address] [place] [address] WBC corrected for nucl RBC Auto (Bld) [#/Vol] 3.5 E9/L Low 4.0-11.0 [facility] Comment on above: Performed By: #### 1 5784836, 7268625, 7282900, 0917424, 3447936, 2310106 ####[address] [address] CHEMISTRYOrdered By: SYSTEM SYSTEM on 03-24-2023 Anion gap [Moles/Vol] 12 mmol/L Normal 6 - 16 mEq/L FT Remisol Chloride [Moles/Vol] 111 mmol/L Normal 101 - 111 mmol/L [facility] Remisol CO2 [Moles/Vol] 20 mmol/L Low 21 - 31 mmol/L [facility] Remisol Creatinine [Mass/Vol] 1.2 mg/dL Normal 0.5 - 1.3 mg/dL [facility] Remisol GFR/1.73 sq M.predicted among non-blacks MDRD (S/P/Bld) [Vol rate/Area] 51 mL/min/1.73 m2 Low >=59mL/min/ 1.73 m2 [facility] Chem S Glucose [Mass/Vol] 84 mg/dL Normal 55 - 199 mg/dL [facility] Remisol Potassium [Moles/Vol] 4.2 mmol/L Normal 3.5 - 5.3 mmol/L [facility] Remisol Sodium [Moles/Vol] 139 mmol/L Normal 135 - 145 mmol/L [facility] Remisol Urea nitrogen [Mass/Vol] 28 mg/dL High 5 - 21 mg/dL [facility] Remisol Consent for Treatmenton 03-11 Consent for Treatment [id number]:127 Normal [facility] Creatinineon 03-24-2023 Creatinine [Mass/Vol] 1.2 mg/dL Normal 0.5-1.3 [facility] Comment on above: Performed By: #### 1 7993618, 2754452, 6462565, 1736444, 4258732, 6971927 ####[facility] [address] [place] [address] Glucoseon 03-24-2023 Glucose [Mass/Vol] 84 mg/dL Normal 55-199 [facility] Comment on above: Performed By: #### 1 1363171, 9243400, 9523909, 7313577, 3888051, 1858343 ####[facility] [address] [place] [address] HEMATOLOGYOrdered By: Andra Longoria on 03-24-2023 Erythrocyte distribution width (RBC) [Ratio] 14.5 % High 10.9 - 14.2 % FT HemeAutoSS Hematocrit (Bld) [Volume fraction] 35.9 % Normal 34.0 - 46.0 % FT HemeAutoSS Hemoglobin (Bld) [Mass/Vol] 11.9 g/dL Low 12.0 - 16.0 gm/dL FT HemeAutoSS MCH (RBC) [Entitic mass] 32.3 pg [...] Anion gap [Moles/Vol] 12 mmol/L Normal 6-16 [facility] Comment on above: Performed By: #### 1 7485558, 0903385, 1002021, 4662073, 4447826, 3295255 ####[facility] [address] [place] [address] Chloride [Moles/Vol] 111 mmol/L Normal 101-111 [facility] Comment on above: Performed By: #### 1 1151893, 9543790, 3505230, 5058765, 5946185, 8112567 ####[facility] [address] [place] [address] CO2 [Moles/Vol] 20 mmol/L Low 21-31 [facility] Comment on above: Performed By: #### 1 0456475, 1432985, 2108685, 6936035, 6154636, 4417671 ####[facility] [address] [place] [address] Potassium [Moles/Vol] 4.2 mmol/L Normal 3.5-5.3 [facility] Comment on above: Performed By: #### 1 2183957, 7930067, 9952263, 7985415, 8809126, 5194148 ####[facility] [address] [place] [address] Sodium [Moles/Vol] 139 mmol/L Normal 135-145 [facility] Comment on above: Performed By: #### 1 7828152, 3180049, 6413948, 2889860, 1635918, 5926278 ####[facility] [address] [place] [address] UA With Cult Reflexon 2022 Bilirubin Ql (U) Negative Normal Negative [facility] Comment on above: Performed By: #### 1 6551418 #### [facility] [address] [place] [address] Clarity (U) CLEAR Normal Clear [facility] Comment on above: Performed By: #### 1 1289481 #### [facility] [address] [place] [address] Color (U) YELLOW Normal Yellow [facility] Comment on above: Performed By: #### 1 2368839 #### [facility] [address] [place] [address] Epithelial cells.squamous LM.HPF (Urine sed) [#/Area] 0-2 Normal 0-2 [facility] Comment on above: Performed By: #### 1 2055599 #### [facility] [address] [place] [address] Fine Granular Casts LM Ql (Urine sed) 0-3 Normal [facility] Comment on above: Performed By: #### 1 7005796 #### [facility] [address] [place] [address] Glucose Test strip (U) [Mass/Vol] Negative Normal Negative [facility] Comment on above: Performed By: #### 1 6406971 #### [facility] [address] [place] [address] Hemoglobin Ql (U) Negative Normal Negative [facility] Comment on above: Performed By: #### 1 6890647 #### [facility] [address] [place] [address] Ketones (U) [Mass/Vol] Negative Normal Negative [facility] Comment on above: Performed By: #### 1 0402609 #### [facility] [address] [place] [address] [place].plasma/Lith ium.RBC (Bld) [Mass ratio] 0-3 Normal 0-3 [facility] Comment on above: Performed By: #### 1 9702187 #### [facility] [address] [place] [address] Mucus Ql (Urine sed) TRACE Normal [facility] Comment on above: Performed By: #### 1 8135845 #### [facility] [address] [place] [address] Nitrite Ql (U) Negative Normal Negative [place] Comment on above: Performed By: #### 1 9501146 #### [facility] [address] [place] [address] pH (U) 6.0 [pH] Invalid Interpretation Code 5.0-9.0 [facility] Comment on above: Performed By: #### 1 3096408 #### [facility] [address] [place] [address] Protein (U) [Mass/Vol] Negative Normal Negative [facility] Comment on above: Performed By: #### 1 0457084 #### [facility] [address] [place] [address] Specific gravity (U) [Rel density] >=1.030 Invalid Interpretation Code 1.005-1.030 [facility] Comment on above: Performed By: #### 1 4107841 #### [facility] [address] [place] [address] Type of Urine collection method Clean Catch Normal [facility] Comment on above: Performed By: #### 1 2733327 #### [facility] [address] [place] [address] Urobilinogen Qn (U) 0.2 {Rajwinder'U}/dL Normal 0.0-1.0 [facility] Comment on above: Performed By: #### 1 2086907 #### [facility] [address] [place] [address] WBC Auto Ql (U) Negative Normal Negative [facility] Comment on above: Performed By: #### 1 0931109 #### [facility] [address] [place] [address] WBC LM.HPF (Urine sed) [#/Area] 0-5 Normal 0-5 [facility] Comment on above: Performed By: #### 1 5056731 #### [facility] [address] [place] [address] URINALYSISOrdered By: Indira calix on 03-24-2023 Bilirubin [...] PM) Normal Negative [facility] UA Auto SS [place].plasma/Lith ium.RBC (Bld) [Mass ratio] 0-3 /HPF Normal [...] [facility] UA Auto SS Urobilinogen Qn (U) 0.5085197 {Rajwinder'U}/dL Normal 0.0 - 1.0 EU/dL [facility] [...] Jayson Kemp M.D. Transcribed by: DANISHA Technologist: SRF Technical Comments Radiation Dose: Ka,r in mGy = na DAP = na Normal [facility] eGFRon 03-24-2023 GFR/1.73 sq M.predicted among non-blacks MDRD (S/P/Bld) [Vol rate/Area] 51 mL/min/1.73 m2 Low >=59 [facility] Comment on above: Order Comment: Order added by Discern Expert. Result Comment: Associate Professor Of Theatre dina kidney disease could be indicated at eGFR's of less than 60 mL/min/1.73m2. Kidney failure is indicated at less than 15 mL/min/1.73m2. Performed By: #### 1 0636177, 0782494, 5688495, 9870531, 1026852, 5774910 ####[facility] [address] [place] [address] Physician Orderon 03-23-2023 Physician Order [id number]#[id number]:127 Normal [facility] XR SHOULDER RT 2V or >on [...] VANDANA YUAN Date: 2022-10-07 22:08 Normal [facility] CBC AUTO DIFFon 09-16-2022 BASO # 0.0 103/ul Normal 0.0-0.1 [facility] Comment on above: Performed By: #### C BC ####[facility] [address] [place], [place] [address]ZrMehreen Andrade Alvarado Basophils/100 WBC (Bld) 0.5 % Normal 0.2-2.0 [facility] Comment on above: Performed By: #### C BC ####[facility] [address] [place] [address]Dr. Andrade Alvarado EO # 0.1 103/ul Normal 0.0-0.7 [facility] Comment on above: Performed By: #### C BC ####[facility] [address] [place], [place] [address]Dr. Kellengregory Alvarado Eosinophils/100 WBC (Bld) 2.3 % Normal 0.9-7.0 [facility] Comment on above: Performed By: #### C BC ####[facility] [address] [place], [place] [address]Dr. Kellengregory Alvarado Erythrocyte distribution width (RBC) [Ratio] 13.7 % Normal 11.0-15.0 [facility] Comment on above: Performed By: #### C BC ####[facility] [address] [place], [place] [address]Dr. Kellengregory Alvarado Hematocrit (Bld) [Volume fraction] 32.8 % Critically low 36.0-48.0 [facility] Comment on above: Performed By: #### C BC ####[facility] [address] [place], [place] [address]Dr. Andrade Alvarado Hemoglobin (Bld) [Mass/Vol] 10.9 g/dL Critically low 12.0-16.0 [facility] Comment on above: Performed By: #### C BC ####[facility] [address] [place], [place] [address]Dr. Kellengregory Alvarado IG # 0.02 10e3/ul Normal 0.00-0.03 [facility] Comment on above: Performed By: #### C BC ####[facility] [address] [place], [place] [address]Dr. Kellengregory Alvarado IG % 0.5 % Normal 0.0-0.5 [facility] Comment on above: Performed By: #### C BC ####[facility] [address] [place], [place] [address]DrMehreen Alvarado LYMPH # 1.6 103/ul Normal 1.2-3.8 [facility] Comment on above: Performed By: #### C BC ####[facility] [address] [place] [address]Dr. Andrade Christiano Lymphocytes/100 WBC (Bld) 41.8 % Normal 20.5-60.0 [facility] Comment on above: Performed By: #### C BC ####[facility] [address] [place] [address]Dr. Andrade Alvarado MANUAL DIFF REQ NO Normal [facility] Comment on above: Performed By: #### C BC ####[facility] [address] [place] [address]Dr. Kellengregory Alvarado MCH (RBC) [Entitic mass] 31.9 pg Normal 26.7-34.0 [facility] Comment on above: Performed By: #### C BC ####[facility] [address] [place], [place] [address]Dr. Andrade Christiano MCHC (RBC) [Mass/Vol] 33.2 g/dL Normal 29.9-35.2 [facility] Comment on above: Performed By: #### C BC ####[facility] [address] [place] [address]Dr. Kellengregory Alvarado MCV (RBC) [Entitic vol] 95.9 fL Normal 81.0-99.0 [facility] Comment on above: Performed By: #### C BC ####[facility] [address] [place] [address]Dr. Andrade Alvarado MONO # 0.5 103/ul Normal 0.3-0.8 [facility] Comment on above: Performed By: #### C BC ####[facility] [address] [place], [place] [address]Dr. Kellengregory Alvarado Monocytes/100 WBC (Bld) 13.1 % Critically high 1.7-12.0 [facility] Comment on above: Performed By: #### C BC ####[facility] [address] [place] [address]DrMehreen Alvarado NEUT # 1.6 103/ul Normal 1.4-6.5 [facility] Comment on above: Performed By: #### C BC ####[facility] [address] [place] [address]Dr. Andrade Alvarado Neutrophils/100 WBC (Bld) 41.8 % Critically low 43.0-75.0 [facility] Comment on above: Performed By: #### C BC ####[facility] [address] [place] [address]Dr. Andrade Alvarado Platelet mean volume (Bld) [Entitic vol] 8.8 fL Critically low 9.5-13.5 [facility] Comment on above: Performed By: #### C BC ####[facility] [address] [place] [address]DrMehreen Alvarado PLT 219 103/ul Normal 150-450 [facility] Comment on above: Performed By: #### C BC ####[facility] [address] [place] [address]DrMehreen Alvarado RBC 3.42 106/ul Critically low 4.20-5.40 [facility] Comment on above: Performed By: #### C BC ####[facility] [address] [place] [address]DrMehreen Alvarado WBC 3.9 103/ul Critically low 4.0-11.0 [facility] Comment on above: Performed By: #### C BC ####[facility] [address] [place] [address]Dr. Andrade Alvarado FERRITINon 09-16-2022 Ferritin [Mass/Vol] 292.0 ng/mL Critically high 8.0-252.0 [facility] Comment on above: Performed By: #### F ERR, B12FOL, FETIBC #### [facility] [address] [address] [address] Andrade Alvarado IRON AND TIBCon 09-16-2022 % SATURATION 76.2 % Normal [facility] Comment on above: Performed By: #### F ERR, B12FOL, FETIBC #### [facility] [address] [address] [address] Andrade Alvarado Iron [Mass/Vol] 259.0 ug/dL Critically high 50.0-170.0 [facility] Comment on above: Performed By: #### F ERR, B12FOL, FETIBC #### [facility] [address] [address] [address] Andrade Alvarado TIBC DIRECT 340.0 ug/dL Normal 250.0-450.0 The [facility] Comment on above: Performed By: #### F ERR, B12FOL, FETIBC #### [facility] [address] [address] [address] Andrade Alvarado PROF 14(COMP METB)on 023 Albumin [Mass/Vol] 4.0 g/dL Normal 3.4-5.0 [facility] Comment on above: Performed By: #### C MP ####[facility] [address] [address]Dr. Andrade Alvarado Albumin/Globulin [Mass ratio] 1.3 {ratio} Normal [facility] Comment on above: Performed By: #### C MP ####[facility] Our[address]ogt[address] [address]Dr. Andrade Alvarado ALP [Catalytic activity/Vol] 47 U/L Normal 46-116 [facility] Comment on above: Performed By: #### C MP ####[facility] [address]rot[address] [address]Dr. Andrade Alvarado ALT [Catalytic activity/Vol] 23 U/L Normal 14-59 [facility] Comment on above: Performed By: #### C MP ####[facility] Gxlemmbjyg[address] [address]Dr. Andrade Alvarado Anion gap [Moles/Vol] 12.1 mmol/L Normal [facility] Comment on above: Performed By: #### C MP ####[facility] [address]csip[address] [address]Dr. Andrade Alvarado AST [Catalytic activity/Vol] 23 U/L Normal 15-37 [facility] Comment on above: Performed By: #### C MP ####[facility] [address]fsin[address] [id number]. Andrade Alvarado Bilirubin [Mass/Vol] 0.4 mg/dL Normal 0.2-1.0 [facility] Comment on above: Performed By: #### C MP ####[facility] [address]mq[address] [id number]. Andrade Alvarado Calcium [Mass/Vol] 9.3 mg/dL Normal 8.5-10.1 [facility] Comment on above: Performed By: #### C MP ####[facility] [address]swvnpziij[address] [id number]. Andrade Alvarado Chloride [Moles/Vol] 108 mmol/L Critically high 98-107 [facility] Comment on above: Performed By: #### C MP ####[facility] [address]gkh[address] [address]Dr. Andrade Christiano CO2 [Moles/Vol] 26.9 mmol/L Normal 21.0-32.0 [facility] Comment on above: Performed By: #### C MP ####[facility] Ctkkcjyxly[address] [address]Dr. Andrade Alvarado Creatinine [Mass/Vol] 0.87 mg/dL Normal 0.55-1.02 [facility] Comment on above: Performed By: #### C MP ####[facility] [address]uwosx[address] [id number]. Andrade Christiano EGFR-AF PRYDEINIG >60 Normal >=60 [facility] Comment on above: Performed By: #### C MP ####[facility] [address]inqqey[address] [id number]. Kellengregory Christiano EGFR-NON AF PRYDEINIG >60 Normal >=60 [facility] Comment on above: Performed By: #### C MP ####[facility] Istcfcce[address] [place], [place] [address]Dr. Andrade Alvarado Globulin (S) [Mass/Vol] 3.0 g/dL Normal [facility] Comment on above: Performed By: #### C MP ####[facility] Cauuiblcyt[address] [place], [place] [address]Dr. Andrade Alvarado Glucose [Mass/Vol] 102 mg/dL Normal 74-106 The [facility] Comment on above: Performed By: #### C MP ####[facility] Ulhexdvmnh[address] [address]Dr. Andrade Alvarado Potassium [Moles/Vol] 4.0 mmol/L Normal 3.5-5.1 [facility] Comment on above: Performed By: #### C MP ####[facility] Fagcklbngg[address] [address]Dr. Andrade Alvarado Protein [Mass/Vol] 7.0 g/dL Normal 6.4-8.2 [facility] Comment on above: Performed By: #### C MP ####[facility] Vpxmbyaoeg[address] [place], [place] [address]Dr. Andrade Alvarado Sodium [Moles/Vol] 143 mmol/L Normal 136-145 [facility] Comment on above: Performed By: #### C MP ####[facility] Ivuykrebzl[address] [place], [place] [address]Dr. Andrade Alvarado Urea nitrogen [Mass/Vol] 25.0 mg/dL Critically high 7.0-18.0 [facility] Comment on above: Performed By: #### C MP ####[facility] Tjzofsebm[address] [place], [place] [address]Dr. Andrade Alvarado Urea nitrogen/Creatinine [Mass ratio] 28.7 mg/mg Normal [facility] Comment on above: Performed By: #### C MP ####[facility] [address]zsajkxg[address] [place], [place] [address]Dr. Andrade Alvarado SED RATE WESTERGRENon 2022 SED RATE 11 mm/hr Normal <=30 [facility] Comment on above: Performed By: #### S EDR ####[facility] Hx[address]rwnzlq[address] [place], [place] [address]Dr. Andrade Alvarado VIT B12 AND FOLATEon 023 Cobalamin (Vitamin B12) [Mass/Vol] 249.0 pg/mL Normal 193.0-986.0 [facility] Comment on above: Performed By: #### F ERR, B12FOL, FETIBC #### [facility] [address] [place], [place] [address] Dr. Andrade Alvarado FOLATE 14.00 ng/mL Normal 8.60-58.90 [facility] Comment on above: Performed By: #### F ERR, B12FOL, FETIBC #### [facility] [address] [address] [address] Andrade Alvarado MG MAMM SCREEN 3D BRENNA CADon 2022 MG MAMM SCREEN 3D BRENNA CAD Patient: RADHA ZAIDI Exam Date: 2022 : 1960 Gender:F Ordering : DR JOHN ASHBY D.O. Admission #: [id number] Family : Order #: [id number] CLICK HERE TO VIEW EXAM RADIOLOGY REPORT [...] prostate cancer at age 72. LOCATION: [facility] BREAST COMPOSITION: Scattered areas fibroglandular density. [...] M.D. on 06/09/2022 at 15:30 Normal [facility] CBC AUTO DIFFon 05-20-2022 BASO # 0.0 103/ul Normal 0.0-0.1 [facility] Comment on above: Performed By: #### C BC ####[facility] [address]meex[address] [address]Dr. Andrade Alvarado Basophils/100 WBC (Bld) 1.0 % Normal 0.2-2.0 [facility] Comment on above: Performed By: #### C BC ####[facility] Kjegheamvt[address] [place], [place] [address]DrMehreen Andrade Alvarado EO # 0.1 103/ul Normal 0.0-0.7 [facility] Comment on above: Performed By: #### C BC ####[facility] Otoosmzrhp18[address] [place], [place] [address]Dr. Andrade Christiano Eosinophils/100 WBC (Bld) 2.5 % Normal 0.9-7.0 [facility] Comment on above: Performed By: #### C BC ####[facility] Fdjaacuhce[address] [place], [place] [address]DrMehreen Andrade Christiano Erythrocyte distribution width (RBC) [Ratio] 13.0 % Normal 11.0-15.0 [facility] Comment on above: Performed By: #### C BC ####[facility] Wptnqjmkdb4[address] [place], [place] [address]Dr. Andrade Alvarado Hematocrit (Bld) [Volume fraction] 34.9 % Critically low 36.0-48.0 [facility] Comment on above: Performed By: #### C BC ####[facility] Iavhyfargi[address] [place], [place] [address]Dr. Andrade Alvarado Hemoglobin (Bld) [Mass/Vol] 11.6 g/dL Critically low 12.0-16.0 [facility] Comment on above: Performed By: #### C BC ####[facility] Ytguqlldov[address] [place], [place] [address]Dr. Kellengregory Christiano IG # 0.02 10e3/ul Normal 0.00-0.03 [facility] Comment on above: Performed By: #### C BC ####[facility] Deyturdfpx[address] [place], [place] [address]DrMehreen Andrade Christiano IG % 0.5 % Normal 0.0-0.5 [facility] Comment on above: Performed By: #### C BC ####[facility] Repivemscq[address] [place], [place] [address]Dr. Andrade Alvarado LYMPH # 1.9 103/ul Normal 1.2-3.8 [facility] Comment on above: Performed By: #### C BC ####[facility] V[address]bz[address] [address]Dr. Kellengregory Alvarado Lymphocytes/100 WBC (Bld) 46.1 % Normal 20.5-60.0 [facility] Comment on above: Performed By: #### C BC ####[facility] [address] [address]Dr. Andrade Alvarado MANUAL DIFF REQ NO Normal The [facility] Comment on above: Performed By: #### C BC ####[facility] B[address]vj[address] [address]Dr. Andrade Alvarado MCH (RBC) [Entitic mass] 32.3 pg Normal 26.7-34.0 [facility] Comment on above: Performed By: #### C BC ####[facility] [address]exes[address] [address]Dr. Kellengregory Christiano MCHC (RBC) [Mass/Vol] 33.2 g/dL Normal 29.9-35.2 [facility] Comment on above: Performed By: #### C BC ####[facility] Ofxcsfzsxd[address] [place], [place] [address]Dr. Andrade Alvarado MCV (RBC) [Entitic vol] 97.2 fL Normal 81.0-99.0 [facility] Comment on above: Performed By: #### C BC ####[facility] [address] [address]DrMehreen Alvarado MONO # 0.5 103/ul Normal 0.3-0.8 [facility] Comment on above: Performed By: #### C BC ####[facility] Odcrklgfzp[address] [place], [place] [address]DrMehreen Alvarado Monocytes/100 WBC (Bld) 13.5 % Critically high 1.7-12.0 [facility] Comment on above: Performed By: #### C BC ####[facility] [address]udwcnu[address] [place], [place] [address]Dr. Andrade Alvarado NEUT # 1.5 103/ul Normal 1.4-6.5 [facility] Comment on above: Performed By: #### C BC ####[facility] [address] [id number]. Andrade Alvarado Neutrophils/100 WBC (Bld) 36.4 % Critically low 43.0-75.0 [facility] Comment on above: Performed By: #### C BC ####[facility] [address] [address]Dr. Andrade Alvarado Platelet mean volume (Bld) [Entitic vol] 8.9 fL Critically low 9.5-13.5 [facility] Comment on above: Performed By: #### C BC ####[facility] [address] [address]Dr. Andrade Alvarado PLT 237 103/ul Normal 150-450 [facility] Comment on above: Performed By: #### C BC ####[facility] J[address]ckolt[address] [address]Dr. Andrade Alvarado RBC 3.59 106/ul Critically low 4.20-5.40 The [facility] Comment on above: Performed By: #### C BC ####[facility] [address]ytq[address] [address]Dr. Andrade Alvarado WBC 4.0 103/ul Normal 4.0-11.0 [facility] Comment on above: Performed By: #### C BC ####[facility] [address] [address]DrMehreen Andrade Alvarado CRPon 05-20-2022 CRP [Mass/Vol] mg/L Normal <=1.0 The [facility] Comment on above: Performed By: #### C MP, CRP, TSH ####[facility] [address]rmcf[address] [address]DrMehreen Andrade Christiano PROF 14(COMP METB)on Albumin [Mass/Vol] 4.2 g/dL Normal 3.4-5.0 [facility] Comment on above: Performed By: #### C MP, CRP, TSH #### [facility] [address] [address] [address] Andrade Alvarado Albumin/Globulin [Mass ratio] 1.3 {ratio} Normal [facility] Comment on above: Performed By: #### C MP, CRP, TSH #### [facility] [address] [address] [address] Adnrade Alvarado ALP [Catalytic activity/Vol] 50 U/L Normal 46-116 [facility] Comment on above: Performed By: #### C MP, CRP, TSH #### [facility] [address] [address] [address] Andrade Alvarado ALT [Catalytic activity/Vol] 23 U/L Normal 14-59 [facility] Comment on above: Performed By: #### C MP, CRP, TSH #### [facility] [address] [address] [address] Andrade Alvarado Anion gap [Moles/Vol] 11.3 mmol/L Normal [facility] Comment on above: Performed By: #### C MP, CRP, TSH #### [facility] [address] [address] [address] Andrade Alvarado AST [Catalytic activity/Vol] 23 U/L Normal 15-37 [facility] Comment on above: Performed By: #### C MP, CRP, TSH #### [facility] [address] [address] [address] Andrade Alvarado Bilirubin [Mass/Vol] 0.5 mg/dL Normal 0.2-1.0 [facility] Comment on above: Performed By: #### C MP, CRP, TSH #### [facility] [address] [address] [address] Andrade Alvarado Calcium [Mass/Vol] 9.3 mg/dL Normal 8.5-10.1 [facility] Comment on above: Performed By: #### C MP, CRP, TSH #### [facility] [address] [address] [address] Andrade Alvarado Chloride [Moles/Vol] 104 mmol/L Normal 98-107 [facility] Comment on above: Performed By: #### C MP, CRP, TSH #### [facility] [address] [address] [address] Andrade Alvarado CO2 [Moles/Vol] 27.2 mmol/L Normal 21.0-32.0 [facility] Comment on above: Performed By: #### C MP, CRP, TSH #### [facility] [address] [address] [address] Andrade Alvarado Creatinine [Mass/Vol] 0.99 mg/dL Normal 0.55-1.02 [facility] Comment on above: Performed By: #### C MP, CRP, TSH #### [facility] [address] [address] [address] Andrade Alvarado EGFR-AF PRYDEINIG >60 Normal >=60 [facility] Comment on above: Performed By: #### C MP, CRP, TSH #### [facility] [address] [address] [address] Andrade Alvarado EGFR-NON AF PRYDEINIG 57 mL/min/1.73m2 Critically low >=60 [facility] Comment on above: Performed By: #### C MP, CRP, TSH #### [facility] [address] [address] [address] Andrade Alvarado Globulin (S) [Mass/Vol] 3.3 g/dL Normal [facility] Comment on above: Performed By: #### C MP, CRP, TSH #### [facility] [address] [address] [address] Andrade Alvarado Glucose [Mass/Vol] 97 mg/dL Normal 74-106 [facility] Comment on above: Performed By: #### C MP, CRP, TSH #### [facility] [address] [address] [address] Andrade Alvarado Potassium [Moles/Vol] 3.5 mmol/L Normal 3.5-5.1 [facility] Comment on above: Performed By: #### C MP, CRP, TSH #### [facility] [address] [address] [address] Andrade Alvarado Protein [Mass/Vol] 7.5 g/dL Normal 6.4-8.2 [facility] Comment on above: Performed By: #### C MP, CRP, TSH #### [facility] [address] [address] [address] Andrade Alvarado Sodium [Moles/Vol] 139 mmol/L Normal 136-145 [facility] Comment on above: Performed By: #### C MP, CRP, TSH #### [facility] [address] [address] [address] Andrade Alvarado Urea nitrogen [Mass/Vol] 22.0 mg/dL Critically high 7.0-18.0 [facility] Comment on above: Performed By: #### C MP, CRP, TSH #### [facility] [address] [address] [address] Andrade Alvarado Urea nitrogen/Creatinine [Mass ratio] 22.2 mg/mg Normal [facility] Comment on above: Performed By: #### C MP, CRP, TSH #### [facility] [address] [address] [address] Andrade [facility] mm/hr Normal <=30 [facility] Comment on above: Performed By: #### S EDR ####[facility] [address] [address]Dr. Andrade Alvarado TSHon 05-20-2022 TSH 1.373 uIU/mL Normal 0.358-3.740 [facility] Comment on above: Performed By: #### C MP, CRP, TSH #### [facility] [address] [address] [address] Andrade Alvarado CBC AUTO DIFFon 02-16-2022 BASO # 0.0 103/ul Normal 0.0-0.1 [facility] Comment on above: Performed By: #### C BC ####[facility] [address] [address]Dr. Andrade Alvarado Basophils/100 WBC (Bld) 0.9 % Normal 0.2-2.0 [facility] Comment on above: Performed By: #### C BC ####[facility] [address]hhbh[address] [id number]. Andrade Alvarado EO # 0.1 103/ul Normal 0.0-0.7 [facility] Comment on above: Performed By: #### C BC ####[facility] [address] [id number]. Andrade Alvarado Eosinophils/100 WBC (Bld) 2.3 % Normal 0.9-7.0 [facility] Comment on above: Performed By: #### C BC ####[facility] [address] [address]Dr. Andrade Alvarado Erythrocyte distribution width (RBC) [Ratio] 12.6 % Normal 11.0-15.0 [facility] Comment on above: Performed By: #### C BC ####[facility] [address] [address]Dr. Andrade Alvarado Hematocrit (Bld) [Volume fraction] 37.8 % Normal 36.0-48.0 [facility] Comment on above: Performed By: #### C BC ####[facility] [address]fr[address]clo[address] [address]Dr. Andrade Alvarado Hemoglobin (Bld) [Mass/Vol] 12.3 g/dL Normal 12.0-16.0 [facility] Comment on above: Performed By: #### C BC ####[facility] [address] [address]Dr. Andrade Alvarado IG # 0.02 10e3/ul Normal 0.00-0.03 [facility] Comment on above: Performed By: #### C BC ####[facility] [address]ox[address] [address]Dr. Andrade Alvarado IG % 0.5 % Normal 0.0-0.5 [facility] Comment on above: Performed By: #### C BC ####[facility] [address]xy[address] [address]Dr. Andrade Alvarado LYMPH # 2.1 103/ul Normal 1.2-3.8 [facility] Comment on above: Performed By: #### C BC ####[facility] [address]uqbz[address] [id number]. Andrade Alvarado Lymphocytes/100 WBC (Bld) 48.3 % Normal 20.5-60.0 [facility] Comment on above: Performed By: #### C BC ####[facility] [address]xx[address] [id number]. Andrade Christiano MANUAL DIFF REQ NO Normal [facility] Comment on above: Performed By: #### C BC ####[facility] [address]ovi[address] [id number]. Andrade Christiano MCH (RBC) [Entitic mass] 31.9 pg Normal 26.7-34.0 [facility] Comment on above: Performed By: #### C BC ####[facility] [address] [address]Dr. Andrade Christiano MCHC (RBC) [Mass/Vol] 32.5 g/dL Normal 29.9-35.2 [facility] Comment on above: Performed By: #### C BC ####[facility] [address]oubrnvc[address] [id number]. Andrade Christiano MCV (RBC) [Entitic vol] 97.9 fL Normal 81.0-99.0 [facility] Comment on above: Performed By: #### C BC ####[facility] [address] [place], [place] [address]Dr. Kellengregory Christiano MONO # 0.5 103/ul Normal 0.3-0.8 [facility] Comment on above: Performed By: #### C BC ####[facility] [address]efynrr[address] [address]Dr. Andrade Christiano Monocytes/100 WBC (Bld) 11.2 % Normal 1.7-12.0 [facility] Comment on above: Performed By: #### C BC ####[facility] [address]aztz[address] [address]Dr. Kellengregory Christiano NEUT # 1.6 103/ul Normal 1.4-6.5 [facility] Comment on above: Performed By: #### C BC ####[facility] [address]iraqzifqt[address] [id number]. Andrade Alvarado Neutrophils/100 WBC (Bld) 36.8 % Critically low 43.0-75.0 [facility] Comment on above: Performed By: #### C BC ####[facility] Avgdcvwqfa[address] [id number]. Andrade Alvarado Platelet mean volume (Bld) [Entitic vol] 9.9 fL Normal 9.5-13.5 [facility] Comment on above: Performed By: #### C BC ####[facility] Xraxuksh[address] [id number]. Andrade Alvarado PLT 213 103/ul Normal 150-450 [facility] Comment on above: Performed By: #### C BC ####[facility] Jhyxdmvchi[address] [id number]. Andrade Alvarado RBC 3.86 106/ul Critically low 4.20-5.40 [facility] Comment on above: Performed By: #### C BC ####[facility] S[address]krnpmbk[address] [place] [id number] Alvarado WBC 4.4 103/ul Normal 4.0-11.0 [facility] Comment on above: Performed By: #### C BC ####[facility] Jayamnexzz[address] [place] [id number] Alvarado PROF 14(COMP METB)on 022 Albumin [Mass/Vol] 4.2 g/dL Normal 3.4-5.0 [facility] Comment on above: Performed By: #### C MP #### [facility] [address] [address] [address] Andrade Alvarado Albumin/Globulin [Mass ratio] 1.3 {ratio} Normal [facility] Comment on above: Performed By: #### C MP #### [facility] [address] [address] [address] Andrade Alvarado ALP [Catalytic activity/Vol] 61 U/L Normal 46-116 [facility] Comment on above: Performed By: #### C MP #### [facility] [address] [address] [address] Andrade Alvarado ALT [Catalytic activity/Vol] 23 U/L Normal 14-59 [facility] Comment on above: Performed By: #### C MP #### [facility] [address] [place] [address] Dr. Andrade Alvarado Anion gap [Moles/Vol] 15.5 mmol/L Normal [facility] Comment on above: Performed By: #### C MP #### [facility] [address] [address] [address] Andrade Alvarado AST [Catalytic activity/Vol] 20 U/L Normal 15-37 [facility] Comment on above: Performed By: #### C MP #### [facility] [address] [address] [address] Andrade Alvarado Bilirubin [Mass/Vol] 0.5 mg/dL Normal 0.2-1.0 [facility] Comment on above: Performed By: #### C MP #### [facility] [address] [place] [address] Dr. Andrade Alvarado Calcium [Mass/Vol] 9.1 mg/dL Normal 8.5-10.1 [facility] Comment on above: Performed By: #### C MP #### [facility] [address] [place] [address] Dr. Andrade Alvarado Chloride [Moles/Vol] 106 mmol/L Normal 98-107 [facility] Comment on above: Performed By: #### C MP #### [facility] [address] [address] [address] Andrade Alvarado CO2 [Moles/Vol] 25.6 mmol/L Normal 21.0-32.0 [facility] Comment on above: Performed By: #### C MP #### [facility] [address] [place] [address] Dr. Andrade Alvarado Creatinine [Mass/Vol] 0.97 mg/dL Normal 0.55-1.02 [facility] Comment on above: Performed By: #### C MP #### [facility] [address] [place] [address] Dr. Andrade Alvarado EGFR-AF PRYDEINIG >60 Normal >=60 [facility] Comment on above: Performed By: #### C MP #### [facility] [address] [address] [address] Andrade Alvarado EGFR-NON AF PRYDEINIG 58 mL/min/1.73m2 Critically low >=60 [facility] Comment on above: Performed By: #### C MP #### [facility] [address] [address] [address] Andrade Alvaardo Globulin (S) [Mass/Vol] 3.2 g/dL Normal [facility] Comment on above: Performed By: #### C MP #### [facility] [address] [address] [address] Andrade Alvarado Glucose [Mass/Vol] 91 mg/dL Normal 74-106 [facility] Comment on above: Performed By: #### C MP #### [facility] [address] [address] [address] Andrade Alvarado Potassium [Moles/Vol] 4.1 mmol/L Normal 3.5-5.1 [facility] Comment on above: Performed By: #### C MP #### [facility] [address] [place] [address] Dr. Andraed Alvarado Protein [Mass/Vol] 7.4 g/dL Normal 6.4-8.2 [facility] Comment on above: Performed By: #### C MP #### [facility] [address] [address] [address] Andrade Alvarado Sodium [Moles/Vol] 143 mmol/L Normal 136-145 [facility] Comment on above: Performed By: #### C MP #### [facility] [address] [address] [address] Andrade Alvarado Urea nitrogen [Mass/Vol] 18.0 mg/dL Normal 7.0-18.0 [facility] Comment on above: Performed By: #### C MP #### [facility] [address] [address] [address] Andrade Alvarado Urea nitrogen/Creatinine [Mass ratio] 18.6 mg/mg Normal [facility] Comment on above: Performed By: #### C MP #### [facility] [address] [address] [address] Andrade Alvarado SED RATE [facility] 2021 SED RATE 15 mm/hr Normal <=30 [facility] Comment on above: Performed By: #### S EDR #### [facility] [address] [address] [address] Andrade Alvarado KNEE LEFT 3 [facility] 04-25-2020 KNEE LEFT 3 S [facility] Department of Radiology [address] [place] [id number] Patient Name: RADHA ZAIDI : 1960 Sex: F Age: Race: White Pt. 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 KNEE LEFT 3 S 04/25/2020 8:24 AM [...] visible. Electronically signed: Eliezer Cam. Transcribed by: [email or web address], User Resident: Electronically Signed by: ELIEZER CAM @ 04/25/2020 11:44 AM Normal [facility] Comment on above: Order Comment: Evalu ate TIBIA FIBULA LEFTon 03-27-20 20 TIBIA FIBULA LEFT [facility] Department of Radiology [address] [place] [phone] Patient Name: RADHA ZAIDI : 1960 Sex: F Age: Race: White Pt. Location: Patient Status: Ordered Date: 03/27/2020 8:05:00 AM Completed Date: 03/27/2020 08:35 AM Requesting Provider: CHARLI LUKE Attending Provider: Report Copy To: Signs & Symptoms: S82.832A [facility] fracture of upper and lower end [...] healing Electronically signed: Crissy Dubon. Transcribed by: [email or web address], User Resident: Electronically Signed by: CRISSY DUBON @ 03/27/2020 09:11 AM Normal [facility] Comment on above: Order Comment: Evalu ate Operative Reporton 0 Operative Report MR#: [id number] S [facility] Pt. Name: Radha Zaidi Room #: 0C Discharge Date: Birthdate: 1960 OPERATIVE REPORT DATE OF SURGERY: 03/12/2020 SURGEON: Maryuri Alexander M.D. ATTENDING PHYSICIAN: Maryuri Alexander M.D. ASSISTANTS: 1. Kulwinder Miarnda M.D. 2. Tiera Paniagua M.D. 3. Hugo [...] were bluntly retracted. We then used a Halsey as well as a hemostat to debride [...] Paniagua MD Date Trans: 03/13/2020 02:26 A/bryson [id number] cc: John Ashby D.O. [address] [place] [phone] Normal [facility] KNEE LEFT 1 OR 2 [facility] 03-12 KNEE LEFT 1 OR 2 [facility] Department of Radiology [address] [place] [id number] Patient Name: RADHA ZAIDI : 1960 Sex: F Age: Race: White Pt. Location: [facility] Patient Status: Ordered Date: 03/12/2020 12:00:00 PM [...] fracture. Electronically signed: Rahul James. Transcribed by: [email or web address], User Resident: Electronically Signed by: RAHUL JAMES @ 03/12/2020 03:20 PM Normal [facility] Comment on above: Order Comment: Evalu ate POC GLUCOSE LABon 03-12-2020 Glucose [Mass/Vol] 103 mg/dL High 70-100 [facility] Comment on above: Performed By: #### 8 5499 ####[facility] *MRSA/MSSA DNA NASALon 03-08 *MRSA/MSSA DNA NASAL Clinical Report: (D) Specimen: NASAL SWAB Collected: 03/08/2020 14:02 Status: Final Last Updated: 03/09/2020 09:30 MSSA DNA (Final) Negative MRSA DNA (Final) Negative Normal [facility] Comment on above: Performed By: #### 3 1595 ####[facility] *SARS-CoV-2 COVID-19on 03-08 [id number] Not Detected Normal Not Detected [facility] Comment on above: Order Comment: The A ptima SARS-CoV-2 assay is a nucleic acid amplification test intended for the qualitative detection of RNA from SARS-CoV-2 isolated and purified from nasopharyngeal (TRAFFIC EXPERT),oropharyngeal (OP), nasal swab, sputum, and bronchoalveolar lavage (BAL) specimens from patients with signs and symptoms of infection who are suspected of COVID-19. Results are for the identification of SARS-CoV-2 RNA. The SARS-CoV-2 RNA is generally detectable during the acute phase of infection. The Aptima SARS-CoV-2 Assay on the SupportLocal and SupportLocal Fusion system is intended for use by laboratory personnel specifically instructed and trained in the operation of the [place] and [place] Fusion system. The Aptima SARS-CoV-2 assay is [...] information. Performed By: #### 3 1792 #### [facility] [address] APTTon 03-08-2020 aPTT Coag (Bld) [Time] 26.9 s Normal 25.0-35.0 [facility] Comment on above: Result Comment: ALL [...] THIS PURPOSE. Performed By: #### 5 6101, 21006 ####[facility] [facility] [place] [address], [facility] BASIC METABOLIC PANELon 02-09 Calcium [Mass/Vol] 9.7 mg/dL Normal 8.6-10.3 [facility] Comment on above: Performed By: #### 0 0071 #### [facility] [address] [facility] [place] [address], [facility] Chloride [Moles/Vol] 103 mmol/L Normal 98-107 [facility] Comment on above: Performed By: #### 0 0071 #### [facility] [address] [place] [address], [facility] CO2 [Moles/Vol] 31 mmol/L Normal 21-31 [facility] Comment on above: Performed By: #### 0 0071 #### [facility] [address] [place] [address], [facility] Creatinine [Mass/Vol] 0.87 mg/dL Normal 0.60-1.20 [facility] Comment on above: Performed By: #### 0 0071 #### [facility] [address] [place] [id number], [facility] GFR/1.73 sq M predicted among blacks MDRD (S/P/Bld) [Vol rate/Area] mL/min/{1.73_m2} Normal >60 [facility] Comment on above: Performed By: #### 0 0071 #### [facility] [address] [facility] [place] [address], [facility] GFR/1.73 sq M predicted among non-blacks MDRD (S/P/Bld) [Vol rate/Area] mL/min/{1.73_m2} Normal >60 [facility] Comment on above: Performed By: #### 0 0071 #### [facility] [address] [facility] [place] [address], [facility] Glucose [Mass/Vol] 106 mg/dL High 70-100 [facility] Comment on above: Performed By: #### 0 0071 #### [facility] [address] [facility] [place] [address], [facility] Potassium [Moles/Vol] 4.3 mmol/L Normal 3.5-5.1 [facility] Comment on above: Performed By: #### 0 0071 #### [facility] [address] Sodium [Moles/Vol] 141 mmol/L Normal 136-145 [facility] Comment on above: Performed By: #### 0 0071 #### [facility] [address] Urea nitrogen [Mass/Vol] 14 mg/dL Normal 7-25 [facility] Comment on above: Performed By: #### 0 0071 #### [facility] [address] CBC W/DIFFon 03-08-2020 ABS BASOPHILS 0.1 10*3/uL Normal 0.0-0.2 [facility] Comment on above: Performed By: #### 5 0103 ####[facility] ABS IMM GRANS 0.0 10*3/uL Normal 0.0-0.2 [facility] Comment on above: Performed By: #### 5 0103 ####[facility] ABS NEUTROPHILS 3.4 10*3/uL Normal 1.6-7.6 [facility] Comment on above: Performed By: #### 5 0103 ####[facility] Basophils/100 WBC (Bld) 0.8 % Normal 0.0-1.0 [facility] Comment on above: Performed By: #### 5 0103 ####[facility] Eosinophils (Bld) [#/Vol] 0.7 10*3/uL High 0.0-0.5 [facility] Comment on above: Performed By: #### 5 3 ####[facility] Eosinophils/100 WBC (Bld) 9.5 % High 0.0-6.0 [facility] Comment on above: Performed By: #### 5 0103 ####[facility] [facility].[address] Erythrocyte distribution width (RBC) [Ratio] 13.6 % Normal 11.5-15.0 [facility] Comment on above: Performed By: #### 5 0103 ####[facility] [facility].[address] Hematocrit (Bld) [Volume fraction] 42.5 % Normal 36.0-45.0 [facility] Comment on above: Performed By: #### 0103 ####[address] Hemoglobin (Bld) [Mass/Vol] 13.7 g/dL Normal 12.0-15.0 [facility] Comment on above: Performed By: #### 5 0103 ####[address] IMMATURE GRANS 0.3 % Normal 0.0-1.0 [facility] Comment on above: Performed By: #### 5 0103 ####[address] [address] [facility].[address] Lymphocytes (Bld) [#/Vol] 2.7 10*3/uL Normal 1.2-4.0 [facility] Comment on above: Performed By: #### 0103 ####[address] [address] [facility].[address] Lymphocytes/100 WBC (Bld) 35.1 % Normal 20.0-45.0 [facility] Comment on above: Performed By: #### 5 3 ####[address] MCH (RBC) [Entitic mass] 31.2 pg Normal 27.0-33.0 [facility] Comment on above: Performed By: #### 5 0103 ####[facility] MCHC (RBC) [Mass/Vol] 32.2 g/dL Normal 32.0-35.0 [facility] Comment on above: Performed By: #### 5 0103 ####[facility] MCV (RBC) [Entitic vol] 96.8 fL Normal 82.0-98.0 [facility] Comment on above: Performed By: #### 5 0103 ####[facility] Monocytes (Bld) [#/Vol] 0.8 10*3/uL Normal 0.1-1.0 [facility] Comment on above: Performed By: #### 5 0103 ####[facility] MONOS 9.8 % Normal 5.0-12.0 [facility] Comment on above: Performed By: #### 5 0103 ####[facility] Neutrophils/100 WBC (Bld) 44.5 % Normal 40.0-72.0 [facility] Comment on above: Performed By: #### 5 3 ####[facility] Nucleated RBC/100 WBC (Bld) [Ratio] 0 % Normal 0-0 [facility] Comment on above: Performed By: #### 5 3 ####[facility] PLAT CNT 230 10*3/uL Normal 150-400 [facility] Comment on above: Performed By: #### 5 0103 ####[facility] RBC (Bld) [#/Vol] 4.39 10*6/uL Normal 3.80-5.00 [facility] Comment on above: Performed By: #### 5 0103 ####[facility] WBC (Bld) [#/Vol] 7.72 10*3/uL Normal 4.00-10.60 [facility] Comment on above: Performed By: #### 5 0103 ####[facility] PROTHROMBIN TIMEon 0 INR Coag (PPP) [Relative time] 0.99 {INR} Normal 0.91-1.16 [facility] Comment on above: Result Comment: ACCC [...] CHEST 1995;108:231S-246S. Performed By: #### 5 6101, 81154 #### [facility] [address] [place] [address], [facility] PT Coag (PPP) [Time] 13.1 s Normal 12.3-14.8 [facility] Comment on above: Result Comment: ALL RESULTS MUST BE INTERPRETED WITH RESPECT TO BLOOD DRAWING ARTIFACT OR DILUTION ERROR OF ANTICOAGULANT AT THE TIME OF SAMPLING. Performed By: #### 5 6101, 49149 #### [facility] [address] [place] [address], [facility] ALBUMIN BLOODon 02-04-2020 Albumin [Mass/Vol] 4.5 g/dL Normal 3.5-5.7 [facility] Comment on above: Performed By: #### 3 0728, 24799, 43439, 38769, 86026 #### [facility] [address] [place] [address], [facility] BASIC METABOLIC PANELon 01-09 Calcium [Mass/Vol] 9.5 mg/dL Normal 8.6-10.3 [facility] Comment on above: Performed By: #### 3 0728, 14790, 29320, 73216, 08795 #### [facility] [address] [place] [address], [facility] Chloride [Moles/Vol] 105 mmol/L Normal 98-107 [facility] Comment on above: Performed By: #### 3 0728, 68921, 17231, 55551, 06641 #### [facility] [address] [place] [address], [facility] CO2 [Moles/Vol] 27 mmol/L Normal 21-31 [facility] Comment on above: Performed By: #### 3 0728, 77958, 99340, 62641, 36121 #### [facility] [address] [place] [address], [facility] Creatinine [Mass/Vol] 0.81 mg/dL Normal 0.60-1.20 [facility] Comment on above: Performed By: #### 3 0728, 74159, 32305, 76140, 97910 #### [facility] [address] [place] [address], [place] GFR/1.73 sq M predicted among blacks MDRD (S/P/Bld) [Vol rate/Area] mL/min/{1.73_m2} Normal >60 [facility] Comment on above: Performed By: #### 3 0728, 96502, 93328, 52336, 85613 #### [facility] [address] [place] [address], [place] GFR/1.73 sq M predicted among non-blacks MDRD (S/P/Bld) [Vol rate/Area] mL/min/{1.73_m2} Normal >60 [facility] Comment on above: Performed By: #### 3 0728, 04894, 17264, 95617, 28320 #### [facility] [address] [place] [address], [place] Glucose [Mass/Vol] 115 mg/dL High 70-100 [facility] Comment on above: Performed By: #### 3 0728, 61438, 88671, 27314, 69487 #### [facility] [address] [place] [address], [place] Potassium [Moles/Vol] 3.9 mmol/L Normal 3.5-5.1 [facility] Comment on above: Performed By: #### 3 0728, 26136, 17441, 33145, 02782 #### [facility] [address] [place] [address], [place] Sodium [Moles/Vol] 140 mmol/L Normal 136-145 [facility] Comment on above: Performed By: #### 3 0728, 25780, 94110, 30828, 06549 #### [facility] [address] [place] [address], [place] Urea nitrogen [Mass/Vol] 20 mg/dL Normal 7-25 [facility] Comment on above: Performed By: #### 3 0728, 49390, 87758, 21093, 80288 #### [facility] [address] [facility] [address] PREALBUMINon 02-04-2020 Prealbumin [Mass/Vol] 24.0 mg/dL Normal 17.0-34.0 [facility] Comment on above: Performed By: #### 3 0728, 48619, 98114, 56937, 39140 #### [facility] [address] [facility] [address] TIBIA FIBULA LEFTon 02-04-20 20 TIBIA FIBULA LEFT [facility] Department of Radiology [address] [place] [address] Patient Name: RADHA ZAIDI : [...] indicated. Electronically signed: Eliezer Randolph. Transcribed by: [email or web address], User Resident: Electronically Signed by: ELIEZER RANDOLPH @ 02/04/2020 10:34 AM Normal [facility] TRANSFERRINon 02-04-2020 Transferrin [Mass/Vol] 270 mg/dL Normal 203-362 [facility] Comment on above: Performed By: #### 3 0728, 33842, 80711, 22134, 07864 #### [facility] [address] VITAMIN D 25-HYDROXYon 02-03 VITAMIN D 25-OH 38.5 ng/mL Normal 30.0-80.0 [facility] Comment on above: Result Comment: >80. 0 Toxicity possible Performed By: #### 3 0728, 44363, 26484, 62478, 50071 #### [facility] [address] [facility]. [address] 07-06-2018 L ------- Specimen: [id number] Received: 07/06/18120 Status: JONI Lazaro Num: [id number] Spec Type: Surgical Subm Dr: Tash Resednez MD Tissues: A Finger - Amputation, Non-traumatic (LT SMALL FINGER) Procedures: HE Stain/2, Gross/Micro L4, Decal Patient Age/Sex Location Account Attending Physician Radha Zaidi 58/F [place] [id number] Tash Resendez MD SPEC NUM: [id number] RECD: 07/06/18 STATUS: JONI LAZARO NUM: [id number] [place]: 07/06/18- [facility] DR: Tash Resendez MD ENTERED: 07/06/[address] [facility] [address]: JULIUS TYPE: Surgical DEPT: S [...] reveals yellow, viable appearing bony cut surfaces. 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 (ENRIKE/NAA/lina) Specimen: [id number] Received: 07/06/18 Status: JONI Lazaro Num: [id number] Spec Type: Surgical Subm Dr: Tash Resendez MD Tissues: A Finger - Amputation, Non-traumatic (LT SMALL FINGER) Procedures: HE Stain/2, Gross/Micro L4, Decal Patient: Radha Zaidi [id number] (Continued) Specimen: [id number] Received: 07/06/18 (Continued) Signed (signature on file) Harsh Jo MD 08/14/18 1503 Specimen: [id number] Received: 07/06/18 Status: JONI Lazaro Num: [id number] Spec Type: Surgical Subm Dr: Tash Resendez MD Tissues: A Finger - Amputation, Non-traumatic (LT SMALL FINGER) Procedures: HE Stain/2, Gross/Micro L4, Decal Patient: Radha Zaidi [id number] (Continued) Specimen: [id number] Received: 07/06/18 (Continued) Microscopic Two glass slides with H E stained material have been examined. The microscopic findings support the above pathologic diagnosis. [address], [address] A. - - LT SMALL FINGER Specimen: [id number] Received: 07/06/18 Status: JONI Lazaro Num: [id number] Spec Type: Surgical Subm Dr: Tash Resendez MD Tissues: A Finger - Amputation, Non-traumatic (LT SMALL FINGER) Procedures: VIRAL Stain/2, Gross/Micro L4, Decal Patient: Radha Zaidi [id number] (Continued) Signed (signature on file) Harsh Jo MD 02/04/19 1503 [facility] FLUORO FOR SURGICAL PROCEDUR ESon 10-20-2017 FLUORO FOR SURGICAL PROCEDURES Exam: FLUORO FOR SURGICAL PROCEDURESHistory: ACDF Fusion Findings: Fluoroscopy time was 70 seconds A total of 19 fluoroscopic images were obtained by Dr. Cheng during the anterior cervical discectomy in the lower cervical spine.IMPRESSION: Impression: Fluoroscopic assistance provided for operative guidance.Interpreted by:DIANA Lealigned by:Eugene Cancino MD10/20/17inal result Normal [facility] Basic Metabolic Panelon Anion gap 15 mmol/L Critically high 7-13 [facility] Calcium 9.6 mg/dL Normal 8.6-10.2 [facility] Chloride 102 mmol/L Normal 98-107 [facility] CO2 23 mmol/L Normal 22-29 [facility] Creatinine 0.54 mg/dL Normal 0.50-0.90 [facility] eGFR (black) mL/min/{1.73_m2} Normal >60 [facility] Comment on above: Result Comment: >60 mL/min/1.73m2 EGFR, calc. for ages 18 and older using theMDRD formula (not corrected for weight), is valid for stablerenal function. eGFR (MDRD) mL/min/{1.73_m2} Normal >60 [facility] Comment on above: Result Comment: >60 mL/min/1.73m2 EGFR, calc. for ages 18 and older using theMDRD formula (not corrected for weight), is valid for stablerenal function. Glucose mass conc 97 mg/dL Normal 74-109 [facility] Potassium molar conc 4.8 mmol/L Normal 3.5-5.1 [facility] Sodium 140 mmol/L Normal 132-144 [facility] Urea nitrogen 14 mg/dL Normal 6-20 [facility] CBC With Platelet No Differe ntialon 10-13-2017 Erythrocyte distribution width Auto Ratio (RBC) 13.3 % Normal 11.5-14.5 [facility] Erythrocytes (RBC) 4.96 10*6/uL Normal 4.20-5.40 [facility] Hematocrit (HCT) 47.1 % Critically high 37.0-47.0 [facility] Hemoglobin mass conc (Bld) 16.2 g/dL Critically high 12.0-16.0 [facility] MCH 32.7 pg Critically high 27.0-31.3 [facility] MCHC mass conc (RBC) 34.4 % Normal 33.0-37.0 [facility] MCV 95.0 fL Normal 82.0-100.0 [facility] Platelets 223 10*3/uL Normal 130-400 [facility] WBC (Leukocytes) 6.2 10*3/uL Normal 4.8-10.8 [facility] Culture, MRSA Screenon 10-13 Culture, MRSA Screen ORDERED BY: VITO STALLWORTH: Nares Nose COLLECTED: 10/13/17 13:18ANTIBIOTICS AT [facility].: RECEIVED : 10/13/17 13:18Culture, MRSA Screen FINAL 10/14/17 13:59 No MRSA isolated Normal [facility] Partial Thromboplastin Timeo n 10-13-2017 aPTT 22.9 s Normal 21.6-35.4 [facility] Comment on above: Result Comment: Hepa rin Therapeutic Range: 38.8 - 54.6 seconds. Prothrombin Timeon 8 INR Coag RelTime (PPP) 1.0 {INR} Normal [facility] Comment on above: Result Comment: Kashif mmended [...] Coag time (PPP) 10.0 s Normal 8.1-13.7 [facility] Type and Screen Capture 3 sc rn cellon 10-13-2017 Bilirubin (total) PATIENT: DYAN HERNANDES LOC: PAT,,BILL# : [id number] : 1960 SEX: FORDERED BY: BASIM CHENG ORDERED : 10/13/2017 12:41 COLLECTED: 10/13/2017 13:24ORDER : [id number] RECEIVED : 10/13/2017 13:24 --TEST NAME RESULT UNITS RANGES ABN FL STABORH Capture A POS FAntibody 3 Cell Scrn Captu NEG F Normal [facility] Urinalysis, reflex to cultur gabbie 10-13-2017 Bilirubin Ql (U) Negative Normal Negative [facility] Urine Reflexed to Culture Not Indicated Normal [facility] Urine, clarity Clear Normal Clear [facility] Urine, color Yellow Normal Straw/[place] [facility] Urine, glucose presence Negative Normal Negative [facility] Urine, hemoglobin presence Negative Normal Negative [facility] Urine, ketones presence Negative Normal Negative [facility] Urine, leukocyte esterase presence Negative Normal Negative [facility] Urine, nitrite presence Negative Normal Negative [facility] Urine, pH 5.5 [pH] Normal 5.0-9.0 [facility] Urine, protein presence Negative Normal Negative [facility] Urine, specific gravity 1.018 Normal 1.005-1.03 [facility] Urine, urobilinogen 0.2 {Rajwinder'U}/dL Normal < 2.0 [facility] Vital Signs Date Time Vital Sign Value Performing Clinician Facility 08-29-2024 15:44-0500 Body height 165.1 cm [facility] 08-29-2024 15:44-0500 Body mass index (BMI) [Ratio] 22 kg/m2 [facility] 08-29-2024 15:44-0500 Body weight 60.04 kg [facility] 08-29-2024 15:44-0500 Diastolic blood pressure 54 mm[Hg] [facility] 08-29-2024 15:44-0500 Heart rate 57 /min [facility] 08-29-2024 15:44-0500 Respiratory rate 12 /min [facility] 08-29-2024 15:44-0500 Systolic blood pressure 136 mm[Hg] [facility] 07-17-2024 15:06-0500 Body height 162.6 cm Jordan Brown DO Work Phone: [facility] 07-17-2024 15:06-0500 Body mass index (BMI) [Ratio] 28.15 kg/m2 Jordan Brown DO Work Phone: [facility] 07-17-2024 15:06-0500 Body weight 74.39 kg Jordan Brown DO Work Phone: [facility] 06-05-2024 14:20-0500 Body height 162.6 cm Jordan Brown DO Work Phone: [facility] 06-05-2024 14:20-0500 Body mass index (BMI) [Ratio] 28.15 kg/m2 Jordan Brown DO Work Phone: [facility] 06-05-2024 14:20-0500 Body temperature 97.5 [degF] Jordan Brown DO Work Phone: [facility] 06-05-2024 14:20-0500 Body weight 74.39 kg Jordan Brown DO Work Phone: [facility] 05-08-2024 10:38-0400 Body height 162.6 cm Jordan Brown DO Work Phone: [facility] 05-08-2024 10:38-0400 Body mass index (BMI) [Ratio] 28.15 kg/m2 Jordan Brown DO Work Phone: [facility] 05-08-2024 10:38-0400 Body temperature 97.39 [degF] Jordan Yuan DO Work Phone: [facility] 05-08-2024 10:38-0400 Body weight 74.39 kg Jordan Yuan DO Work Phone: [facility] 04-27-2024 13:08-0400 Heart rate 80 /min Jordan Yuan [facility] 04-27-2024 13:08-0400 SaO2% (BldA) [Mass fraction] 94 % Jordan Yuan [facility] 04-27-2024 13:08-0400 Blood Pressure Location Jordan Yuan [facility] 04-27-2024 13:08-0400 Diastolic blood pressure 72 mm[Hg] Jordan Yuan [facility] 04-27-2024 13:08-0400 Mean blood pressure 93 mm[Hg] Jordan Yuan [facility] 04-27-2024 13:08-0400 Systolic blood pressure 136 mm[Hg] Jordan Yuan [facility] 04-27-2024 13:08-0400 Respiratory rate 18 /min Jordan Yuan [facility] 04-27-2024 11:23-0400 Heart rate 72 /min Jordan Yuan [facility] 04-27-2024 11:23-0400 SaO2% (BldA) [Mass fraction] 100 % Jordan Yuan [facility] 04-27-2024 11:22-0400 Blood Pressure Location Jordan Yuan [facility] 04-27-2024 11:22-0400 Diastolic blood pressure 66 mm[Hg] Jordan Yuan [facility] 04-27-2024 11:22-0400 Mean blood pressure 86 mm[Hg] Jordan Yuan [facility] 04-27-2024 11:22-0400 Systolic blood pressure 126 mm[Hg] Jordan Brown [facility] 04-27-2024 11:22-0400 Respiratory rate 18 /min Jordan Yuan [facility] 04-27-2024 11:15-0400 Blood Pressure Location Jordan Yuan [facility] 04-27-2024 11:15-0400 Body temperature 97.16 [degF] Jordan Yuan [facility] 04-27-2024 11:15-0400 Diastolic blood pressure 62 mm[Hg] Jordan Yuan [facility] 04-27-2024 11:15-0400 Heart rate 79 /min Jordan Yuan [facility] 04-27-2024 11:15-0400 Mean blood pressure 81 mm[Hg] Jordan Yuan [facility] 04-27-2024 11:15-0400 Respiratory rate 20 /min Jordan Yuan [facility] 04-27-2024 11:15-0400 SaO2% (BldA) [Mass fraction] 100 % Jordan Yuan [facility] 04-27-2024 11:15-0400 Systolic blood pressure 118 mm[Hg] Jordan Brown [facility] 04-27-2024 11:05-0400 Mean blood pressure 91 mm[Hg] Jordan Brown [facility] 04-27-2024 11:05-0400 Respiratory rate 16 /min Jordan Yuan [facility] 04-27-2024 10:50-0400 Mean blood pressure 88 mm[Hg] Jordan Brown [facility] 04-27-2024 10:50-0400 Respiratory rate 9 /min Jordan Yuan [facility] 04-27-2024 10:10-0400 Body temperature 97.16 [degF] Jordan Yuan [facility] 04-27-2024 10:05-0400 Respiratory rate 12 /min Jordan Yuan [facility] 04-27-2024 06:23-0400 Mean blood pressure 82 mm[Hg] Jordan Yuan [facility] 04-27-2024 06:22-0400 Body temperature 97.7 [degF] Jordan Yuan [facility] 04-17-2024 15:14-0400 Body height 165.1 cm [facility] 04-17-2024 15:14-0400 Body mass index (BMI) [Ratio] 23.1 kg/m2 [facility] 04-17-2024 15:14-0400 Body weight 63.16 kg [facility] 04-17-2024 15:14-0400 Diastolic blood pressure 84 mm[Hg] [facility] 04-17-2024 15:14-0400 Heart rate 84 /min [facility] 04-17-2024 15:14-0400 Respiratory rate 12 /min [facility] 04-17-2024 15:14-0400 Systolic blood pressure 147 mm[Hg] [facility] 03-27-2024 16:24-0400 Body height 165.1 cm [facility] 03-27-2024 16:24-0400 Body mass index (BMI) [Ratio] 23.9 kg/m2 [facility] 03-27-2024 16:24-0400 Body weight 65.31 kg [facility] 03-27-2024 16:24-0400 Diastolic blood pressure 76 mm[Hg] [facility] 03-27-2024 16:24-0400 Heart rate 87 /min [facility] 03-27-2024 16:24-0400 Respiratory rate 12 /min [facility] 03-27-2024 16:24-0400 Systolic blood pressure 126 mm[Hg] [facility] 03-19-2024 12:28-0400 Diastolic blood pressure 71 mm[Hg] Joradnroman Yuan [facility] 03-19-2024 12:28-0400 Systolic blood pressure 126 mm[Hg] Jordan Yuan [facility] 03-19-2024 12:27-0400 Blood Pressure Location Jordan Yuan [facility] 03-19-2024 12:27-0400 Body temperature 97.88 [degF] Jordan Yuan [facility] 03-19-2024 12:27-0400 Diastolic blood pressure 78 mm[Hg] Jordanroman Yuan [facility] 03-19-2024 12:27-0400 Heart rate 75 /min Jordan Yuan [facility] 03-19-2024 12:27-0400 Mean blood pressure 94 mm[Hg] Jordan Yuan [facility] 03-19-2024 12:27-0400 Respiratory rate 15 /min Jordanroman Yuan [facility] 03-19-2024 12:27-0400 SaO2% (BldA) [Mass fraction] 97 % Jordan Yuan [facility] 03-19-2024 12:27-0400 Systolic blood pressure 127 mm[Hg] Jordan Yuan [facility] 02-29-2024 09:29-0400 Body height 165.1 cm [facility] 02-29-2024 09:29-0400 Body mass index (BMI) [Ratio] 24.1 kg/m2 [facility] 02-29-2024 09:29-0400 Body weight 65.82 kg [facility] 02-29-2024 09:29-0400 Diastolic blood pressure 81 mm[Hg] [facility] 02-29-2024 09:29-0400 Heart rate 74 /min [facility] 02-29-2024 09:29-0400 Respiratory rate 12 /min [facility] 02-29-2024 09:29-0400 Systolic blood pressure 129 mm[Hg] [facility] 12-28-2023 15:31-0400 Body height 165.1 cm [facility] 12-28-2023 15:31-0400 Body mass index (BMI) [Ratio] 25.7 kg/m2 [facility] 12-28-2023 15:31-0400 Body weight 70.08 kg [facility] 12-28-2023 15:31-0400 Diastolic blood pressure 75 mm[Hg] [facility] 12-28-2023 15:31-0400 Heart rate 92 /min [facility] 12-28-2023 15:31-0400 Respiratory rate 12 /min [facility] 12-28-2023 15:31-0400 Systolic blood pressure 112 mm[Hg] [facility] 11-15-2023 15:42-0400 Body height 162.6 cm Jordan [employer] Work Phone: [facility] 11-15-2023 15:42-0400 Body mass index (BMI) [Ratio] 28.15 kg/m2 [employer] Work Phone: [facility] 11-15-2023 15:42-0400 Body weight 74.39 kg [employer] Work Phone: [facility] 09-28-2023 15:16-0400 Body height 165.1 cm [facility] 09-28-2023 15:16-0400 Body mass index (BMI) [Ratio] 27.8 kg/m2 [facility] 09-28-2023 15:16-0400 Body weight 75.92 kg [facility] 09-28-2023 15:16-0400 Diastolic blood pressure 68 mm[Hg] [facility] 09-28-2023 15:16-0400 Heart rate 80 /min [facility] 09-28-2023 15:16-0400 Respiratory rate 12 /min [facility] 09-28-2023 15:16-0400 Systolic blood pressure 130 mm[Hg] [facility] 09-05-2023 21:48-0500 Body height 166.37 cm John Ball Other [employer] Other 09-05-2023 16:33-0500 Body height 165.1 cm [facility] 09-05-2023 16:33-0500 Body mass index (BMI) [Ratio] 28.5 kg/m2 [facility] 09-05-2023 16:33-0500 Body weight 77.79 kg [facility] 09-05-2023 16:33-0500 Diastolic blood pressure 69 mm[Hg] [facility] 09-05-2023 16:33-0500 Heart rate 97 /min [facility] 09-05-2023 16:33-0500 Systolic blood pressure 115 mm[Hg] [facility] 08-18-2023 15:40-0500 Body height 162.6 cm Jordan [employer] Work Phone: [facility] 08-18-2023 15:40-0500 Body mass index (BMI) [Ratio] 28.15 kg/m2 [employer] DO Work Phone: [facility] 08-18-2023 15:40-0500 Body temperature 97.11 [degF] Jordan Glassful DO Work Phone: [facility] 08-18-2023 15:40-0500 Body weight 74.39 kg Jordan Glassful DO Work Phone: [facility] 08-17-2023 15:00-0500 Body height 166.37 cm John Ball Other [employer] Other 08-17-2023 15:00-0500 Body mass index (BMI) [Ratio] 28.12 kg/m2 [employer] Other [employer] Other 08-17-2023 15:00-0500 Body weight 77.84 kg John Ball Other [employer] Other 08-17-2023 15:00-0500 Diastolic blood pressure 79 mm[Hg] John Ball Other [employer] Other 08-17-2023 15:00-0500 Respiratory rate 12 /min [employer] Other [employer] Other 08-17-2023 15:00-0500 Systolic blood pressure 126 mm[Hg] [employer] Other [employer] Other 04-07-2023 14:00-0400 Body temperature 97.52 [degF] Jordan Glassful [facility] 04-07-2023 14:00-0400 Diastolic blood pressure 63 mm[Hg] [employer] [facility] 04-07-2023 14:00-0400 Heart rate 88 /min [employer] [facility] 04-07-2023 14:00-0400 Mean blood pressure 76 mm[Hg] Jordan Glassful [facility] 04-07-2023 14:00-0400 SaO2% (BldA) [Mass fraction] 94 % [employer] [facility] 04-07-2023 14:00-0400 Systolic blood pressure 101 mm[Hg] Jordan Glassful [facility] 04-07-2023 08:47-0400 Diastolic blood pressure 75 mm[Hg] Jordan Glassful [facility] 04-07-2023 08:47-0400 Systolic blood pressure 125 mm[Hg] Jordan Yuan [facility] 04-07-2023 07:45-0400 Blood Pressure Location Jordan Yuan [facility] 04-07-2023 07:45-0400 Body temperature 97.88 [degF] Jordan Yuan [facility] 04-07-2023 07:45-0400 Diastolic blood pressure 75 mm[Hg] Jordan Yuan [facility] 04-07-2023 07:45-0400 Heart rate 72 /min Jordan Yuan [facility] 04-07-2023 07:45-0400 Hourly Rounding Jordan Yuan [facility] 04-07-2023 07:45-0400 Mean blood pressure 92 mm[Hg] Jordan Yuan [facility] 04-07-2023 07:45-0400 Promise to Return Jordan Yuan [facility] 04-07-2023 07:45-0400 Respiratory rate 16 /min Jordan Yuan [facility] 04-07-2023 07:45-0400 SaO2% (BldA) [Mass fraction] 96 % Jordan Yuan [facility] 04-07-2023 07:45-0400 Systolic blood pressure 125 mm[Hg] Jordan Yuan [facility] 04-07-2023 06:17-0400 Hourly Rounding Jordan Yuan [facility] 04-07-2023 06:17-0400 Promise to Return Jordan Yuan [facility] 04-07-2023 05:05-0400 Hourly Rounding Jordan Yuan [facility] 04-07-2023 05:05-0400 Promise to Return Jordan Yuan [facility] 04-06-2023 22:20-0400 Blood Pressure Location Jordan Yuan [facility] 04-06-2023 22:20-0400 Body temperature 98.24 [degF] Jordan Yuan [facility] 04-06-2023 22:20-0400 Heart rate 74 /min Jordan Yuan [facility] 04-06-2023 22:20-0400 Mean blood pressure 78 mm[Hg] Jordan Yuan [facility] 04-06-2023 22:20-0400 Respiratory rate 16 /min Jordan Yuan [facility] 04-06-2023 22:20-0400 SaO2% (BldA) [Mass fraction] 93 % Jordan Yuan [facility] 04-06-2023 20:10-0400 Heart rate 65 /min Jordan Yuan [facility] 04-06-2023 20:01-0400 Body temperature 97.34 [degF] Jordan Yuan [facility] 04-06-2023 20:00-0400 Mean blood pressure 86 mm[Hg] Jordan Yuan [facility] 04-06-2023 16:17-0400 Mean blood pressure 97 mm[Hg] Jordan Yuan [facility] 04-06-2023 16:16-0400 Body temperature 97.52 [degF] Jordan Yuan [facility] 04-06-2023 13:49-0400 Mean blood pressure 88 mm[Hg] Jordan Yuan [facility] 04-06-2023 12:45-0400 Respiratory rate 13 /min Jordan Yuan [facility] 04-06-2023 12:35-0400 Respiratory rate 10 /min Jordan Yuan [facility] 04-06-2023 12:20-0400 Respiratory rate 17 /min Jordan Yuan [facility] 04-06-2023 11:37-0400 Body temperature 96.98 [degF] Jordan Yuan [facility] 04-06-2023 06:39-0400 Heart rate 68 /min Jordan Yuan [facility] 03-24-2023 14:52-0400 Diastolic blood pressure 76 mm[Hg] Jordan Yuan [facility] 03-24-2023 14:52-0400 Heart rate 67 /min Jordan Yuan [facility] 03-24-2023 14:52-0400 Mean blood pressure 99 mm[Hg] Jordan Yuan [facility] 03-24-2023 14:52-0400 Systolic blood pressure 144 mm[Hg] Jordan Yuan [facility] 03-24-2023 14:52-0400 Heart rate 68 /min Jordan Yuan [facility] 03-24-2023 14:52-0400 SaO2% (BldA) [Mass fraction] 99 % Jordan Yuan [facility] 03-24-2023 14:52-0400 Diastolic blood pressure 75 mm[Hg] Jordan Yuan [facility] 03-24-2023 14:52-0400 Mean blood pressure 93 mm[Hg] Jordan Glassful [facility] 03-24-2023 14:52-0400 Systolic blood pressure 128 mm[Hg] Jordan Yuan [facility] 03-24-2023 14:51-0400 Respiratory rate 16 /min Jordan Yuan [facility] 01-10-2023 15:00-0400 Body height 166.37 cm John Ball Other [employer] Other 01-10-2023 15:00-0400 Body mass index (BMI) [Ratio] 27.04 kg/m2 John Ball Other [employer] Other 01-10-2023 15:00-0400 Body weight 74.84 kg John Ball Other [employer] Other 01-10-2023 15:00-0400 Diastolic blood pressure 86 mm[Hg] John Ball Other [employer] Other 01-10-2023 15:00-0400 Respiratory rate 12 /min John Ball Other [employer] Other 01-10-2023 15:00-0400 Systolic blood pressure 124 mm[Hg] John Ball Other [employer] Other 12-09-2022 09:00-0400 Body height 166.37 cm John Ball Other [employer] Other 12-09-2022 09:00-0400 Body mass index (BMI) [Ratio] 27.33 kg/m2 John Ball Other [employer] Other 12-09-2022 09:00-0400 Body weight 75.66 kg John Ball Other [employer] Other 12-09-2022 09:00-0400 Diastolic blood pressure 71 mm[Hg] John Ball Other [employer] Other 12-09-2022 09:00-0400 Respiratory rate 12 /min John Ball Other [employer] Other 12-09-2022 09:00-0400 Systolic blood pressure 111 mm[Hg] John Ball Other [employer] Other 11-09-2022 15:00-0400 Body height 166.37 cm John Ball Other [employer] Other 11-09-2022 15:00-0400 Body mass index (BMI) [Ratio] 27.36 kg/m2 John Ball Other [employer] Other 11-09-2022 15:00-0400 Body weight 75.75 kg John Ball Other [employer] Other 11-09-2022 15:00-0400 Diastolic blood pressure 80 mm[Hg] John Ball Other [employer] Other 11-09-2022 15:00-0400 Respiratory rate 12 /min John Ball Other [employer] Other 11-09-2022 15:00-0400 Systolic blood pressure 135 mm[Hg] John Ball Other [employer] Other 07-26-2022 16:30-0500 Body height 166.37 cm John Ball Other [employer] Other 07-26-2022 16:30-0500 Body mass index (BMI) [Ratio] 26.28 kg/m2 John Ball Other [employer] Other 07-26-2022 16:30-0500 Body weight 72.76 kg John Ashby Other [employer] Other 07-26-2022 16:30-0500 Diastolic blood pressure 78 mm[Hg] John Ashby Other [employer] Other 07-26-2022 16:30-0500 Respiratory rate 12 /min John Ashby Other [employer] Other 07-26-2022 16:30-0500 Systolic blood pressure 122 mm[Hg] John Ashby Other [employer] Other Encounters Encounter Date Encounter Type Care Provider Facility Start: 08-29-2024 End: 08-29-2024 ambulatory [facility] Work Phone: Start: 08-29-2024 End: 08-29-2024 Encounter for general adult medical examination without abnormal findings [facility] Start: 08-29-2024 End: 08-29-2024 Patient encounter procedure [facility] Work Phone: Start: 08-27-2024 Patient encounter status [facility] Start: 07-17-2024 End: 07-17-2024 Patient encounter procedure Jordan Yuan DO Work Phone: [facility] Comment on above: S/P arthroscopy of l eft shoulder (Primary Dx) Start: 07-17-2024 End: 07-17-2024 ambulatory JORDAN YUAN Not Available Start: 07-17-2024 End: 07-17-2024 Bamboo flowsheet Jordan Yuan DO Work Phone: [facility] Start: 07-17-2024 End: 07-17-2024 Bamboo flowsheet Jordan Yuan DO Work Phone: [facility] Start: 06-21-2024 Non-patient / Non-visit [facility] Work Phone: Start: 06-14-2024 End: 06-14-2024 [facility] Start: 06-05-2024 End: 06-05-2024 ambulatory JORDAN YUAN Not Available Start: 06-05-2024 End: 06-05-2024 Patient encounter procedure Jordan Yuan DO Work Phone: [facility] Comment on above: Status post shoulder surgery (Primary Dx) Start: 05-09-2024 End: 05-09-2024 ambulatory [facility] Work Phone: Start: 05-09-2024 End: 05-09-2024 Patient encounter procedure [facility] Work Phone: Start: 05-08-2024 End: 05-08-2024 Patient encounter procedure Jordan Yuan DO Work Phone: [facility] Comment on above: Status post shoulder surgery (Primary Dx) Start: 05-08-2024 End: 05-08-2024 ambulatory JORDAN YUAN Not Available Start: 05-08-2024 End: 05-08-2024 ambulatory JORDAN YUAN Not Available Start: 04-27-2024 End: 04-27-2024 Admission to same day surgery center Jordan Yuan [facility] Start: 04-27-2024 End: 04-27-2024 ambulatory DO Jordan Yuan Facility:[facility] Start: 04-17-2024 End: 04-17-2024 ambulatory [facility] Work Phone: Start: 04-17-2024 End: 04-17-2024 [facility]: Start: 04-10-2024 End: 04-10-2024 ambulatory [facility] Work Phone: Start: 04-10-2024 End: 04-10-2024 Patient encounter procedure [facility] Work Phone: Start: 03-30-2024 End: 03-30-2024 ambulatory [facility] Work Phone: Start: 03-30-2024 End: 03-30-2024 Patient encounter procedure [facility] Work Phone: Start: 03-27-2024 End: 03-27-2024 ambulatory [facility] Work Phone: Start: 03-27-2024 End: 03-27-2024 Patient encounter procedure [facility] Work Phone: Start: 03-25-2024 Patient encounter status [facility] Start: 03-19-2024 End: 03-19-2024 ambulatory Jordan Yuan Facility:[facility] Start: 03-19-2024 End: 03-19-2024 Patient encounter procedure Jordan Yuan [facility] Start: 02-29-2024 End: 02-29-2024 ambulatory [facility] Work Phone: Start: 02-29-2024 End: 02-29-2024 Patient encounter procedure [facility] Work Phone: Start: 02-23-2024 End: 02-23-2024 ambulatory JORDAN YUAN Not Available Start: 02-14-2024 Non-patient / Non-visit [facility] Work Phone: Start: 02-02-2024 Non-patient / Non-visit [facility] Work Phone: Start: 12-28-2023 End: 12-28-2023 ambulatory [facility] Work Phone: Start: 12-28-2023 End: 12-28-2023 Patient encounter procedure [facility] Work Phone: Start: 11-15-2023 End: 11-15-2023 Patient encounter procedure Jordan Yuan DO Work Phone: [facility] Comment on above: Status post shoulder surgery (Primary Dx) Start: 11-15-2023 End: 11-15-2023 ambulatory JORDAN YUAN Not Available Start: 11-04-2023 End: 11-04-2023 ambulatory [facility] Start: 09-28-2023 End: 09-28-2023 ambulatory [facility] Work Phone: Start: 09-28-2023 End: 09-28-2023 Patient encounter procedure [facility] Work Phone: Start: 09-13-2023 End: 09-13-2023 ambulatory JORDAN YUAN Not Available Start: 09-06-2023 End: 09-06-2023 ambulatory Jordan Yuan Facility:[facility] Start: 09-06-2023 End: 09-06-2023 Patient encounter procedure Jordan Yuan [facility] Start: 09-05-2023 Non-patient / Non-visit [facility] Work Phone: Start: 09-05-2023 End: 09-05-2023 ambulatory John Ashby Other [employer] Other Start: 09-05-2023 Telephone encounter John Ashby [facility] Start: 09-02-2023 Non-patient / Non-visit [facility] Work Phone: Start: 08-30-2023 Non-patient / Non-visit [facility] Work Phone: Start: 08-18-2023 End: 08-18-2023 Patient encounter procedure Jordan Yuan DO Work Phone: [facility] Comment on above: Right shoulder pain, unspecified chronicity (Primary Dx) Start: 08-18-2023 End: 08-18-2023 ambulatory JORDAN YUAN Not Available Start: 08-18-2023 Chart abstracting Jordan do DO Work Phone: [facility] Start: 08-17-2023 End: 08-17-2023 ambulatory John Ashby Other [employer] Other Start: 08-17-2023 Encounter for genera l adult medical examination without abnormal findings John Ashby [facility] Start: 08-17-2023 Periodic preventive med est patient 40-64yrs John Ashby [facility] Start: 06-28-2023 End: 06-28-2023 ambulatory John Ashby Other [employer] Other Start: 06-28-2023 Office outpatient vi sit 15 minutes John Ashby [facility] Start: 05-06-2023 End: 05-06-2023 ambulatory John Ashby Other [employer] Other Start: 05-06-2023 Telephone encounter John Ashby [facility] Start: 04-26-2023 End: 04-26-2023 ambulatory John Ashby Other [employer] Other Start: 04-26-2023 Telephone encounter John Ashby [facility] Start: 04-06-2023 End: 04-07-2023 Admission to same day surgery center Jordan Yuan [facility] Start: 04-06-2023 End: 04-07-2023 ambulatory Jordan Yuan Facility:[facility] Start: 03-31-2023 End: 03-31-2023 ambulatory John Ashby Other [employer] Other Start: 03-31-2023 Telephone encounter John Ashby [facility] Start: 03-26-2023 End: 03-26-2023 ambulatory John Ashby Other [employer] Other Start: 03-26-2023 Telephone encounter John SIMON [facility] Start: 03-24-2023 End: 03-24-2023 ambulatory Jordan Yuan Facility:[facility] Start: 03-24-2023 End: 03-24-2023 Patient encounter procedure Jordan Sue Yuan [facility] Start: 03-21-2023 End: 03-21-2023 ambulatory John Ashby Other [employer] Other Start: 03-21-2023 Telephone encounter John SIMON [facility] Start: 01-12-2023 End: 01-12-2023 ambulatory John Ashby Other [employer] Other Start: 01-12-2023 Telephone encounter John SIMON [facility] Start: 01-10-2023 End: 01-10-2023 ambulatory John Symone Other [employer] Other Start: 01-10-2023 Office outpatient vi sit 15 minutes John Ball [facility] Start: 12-14-2022 End: 12-14-2022 ambulatory John Ball Other [employer] Other Start: 12-14-2022 Telephone encounter John SIMON [facility] Start: 12-10-2022 End: 12-10-2022 ambulatory John Ball Other [employer] Other Start: 12-10-2022 Telephone encounter John Ashby [facility] Start: 12-09-2022 End: 12-09-2022 ambulatory John Ball Other [employer] Other Start: 12-09-2022 Office outpatient vi sit 15 minutes John Ball [facility] Start: 11-09-2022 End: 11-09-2022 ambulatory John Ball Other [employer] Other Start: 11-09-2022 Office outpatient vi sit 15 minutes John Ashby [facility] Start: 10-13-2022 ambulatory NARENDRANATH LAKSHMIPATHY . Facility:[facility] Start: 10-07-2022 End: 10-08-2022 ambulatory NARENDRANATH LAKSHMIPATHY . Facility:[facility] Start: 09-22-2022 End: 09-22-2022 ambulatory John Ashby Other [employer] Other Start: 09-22-2022 Telephone encounter John Ashby [facility] Start: 09-16-2022 End: 09-17-[address] JOHN ASHBY Facility:[facility] Start: 08-14-2022 End: 08-14-2022 ambulatory John Ashby Other [employer] Other Start: 08-14-2022 Telephone encounter John Ashby [facility] Start: 07-26-2022 End: 07-26-2022 ambulatory John Ashby Other [employer] Other Start: 07-26-2022 Office outpatient vi sit 15 minutes John Ashby [facility] Start: 07-22-2022 Annual wellness visit John Ashby Other [employer] Other Start: 07-22-2022 Patient encounter procedure John Ashby Other [employer] Other Start: 07-09-2022 End: 07-10-[address] JOHN ASHBY Facility:[facility]1 Start: 06-21-2022 Adult health examination John Ashby Other [employer] Other Start: 06-21-2022 Gynecological examination normal John Ashby Other [employer] Other Start: 2022 End: 06-09-[address] JOHN ASHBY Facility:[facility] Start: 06-01-2022 End: 06-01-[address] JOHN ASHBY Facility:[facility] Start: 05-24-2022 Encounter for genera l adult medical examination without abnormal findings DR JOHN ASHBY [facility] Start: 05-20-2022 End: 05-21-[address] JOHN ASHBY Facility:[facility] Start: 05-20-2022 End: 05-21-2022 Encounter for general adult medical examination without abnormal findings DR JOHN ASHBY Facility:[facility] Start: 05-20-2022 End: 05-21-[address] JOHN ASHBY Facility:[facility] Start: 04-09-2022 ambulatory KATE DEL VALLES Facility:H 1 Start: 02-17-2022 End: 02-18-2022 ambulatory JACQUIE OLIVAS . Facility:[facility] Start: 02-16-2022 End: 02-17-[address] SO AMOS . Facility:[facility] Start: 02-02-2022 End: 02-03-[address] SO AMOS . Facility:[facility]1 Start: 12-24-2021 ambulatory KATE DEL VALLES Facility:[facility] 1 Start: 10-22-2021 End: 10-23-2021 ambulatory JACQUIE OLIVAS . Facility: Start: 03-12-2020 End: 03-13-2020 Patient encounter procedure MARYURI ALEXANDER Facility:[facility] Start: 03-05-2020 End: 03-20-2020 Patient encounter procedure MARYURI EBHEIM Facility:[facility] Start: 10-20-2017 End: 10-21-[address] [facility] ([place], [place]) Start: 10-13-2017 End: 10-18-[address] [facility] ([place], [place]) Procedures Date Procedure Procedure Detail Performing Clinician Start: 06-05-2024 Arthrocentesis aspir &/inj major jt/bursa w/us Jordan Yuan DO Work Phone: Start: 05-08-2024 Radex shoulder compl ete minimum 2 views Jordan Yuan DO Work Phone: Start: 04-27-2024 Arthroscopy of shoulder Jordan Yuan Start: 11-15-2023 Radex shoulder compl ete minimum [...] Treatment Date Care Activity Detail Author Start: 09-18-2024 End: 09-18-2024 Patient encounter procedure 09/18/2024 10:00 AM EDT Office Visit [facility] [address] [place] [address] Jordan Yuan DO [address] [address] [facility] Start: 07-17-2024 End: 07-17-2024 Patient encounter procedure 07/17/2024 2:45 PM EST Office Visit [facility] [address] [place] [address] Jordan Yuan DO [address] [place] [address] Arrived [facility] Comment on above: Arrived Start: 06-05-2024 End: 06-05-2024 Patient encounter procedure 06/05/2024 9:15 AM EST Office Visit [facility] [address] [place] [address] Jordan Yuan DO [address] [place] [address] [facility] Start: 05-08-2024 End: 05-08-2024 Patient encounter procedure 05/08/2024 10:45 AM EDT Office Visit [facility] [address] [place] [address] Jordan Yuan DO [address] [place] [address] [facility] Start: 03-11-2024 Influenza vaccination Influenza Vacc ine (#1) [facility] Start: 10-04-2023 End: 10-04-2023 Patient encounter procedure 10/04/2023 3:45 PM EDT Office Visit [facility] [address] [place] [address] Jordan Yuan DO [address] [place] [address] [facility] Start: 08-18-2023 End: 08-18-2023 Patient encounter procedure 08/18/2023 3:45 PM EST Office Visit [facility] [address] [place] [address] Jordan Yuan, DO [address] [place] [address] [facility] Start: 08-18-2023 End: 08-18-2024 C reactive protein [Mass/volume] in Serum or Plasma C-reactive protein Lab Routine Right shoulder pain, unspecified chronicity Expected: 08/18/2023 (Approximate), Expires: 08/18/2024 [facility] Comment on above: Expected: 08/18/2023 (Approximate), Expires: 08/18/2024 Start: 08-18-2023 End: 08-18-2024 CBC W Auto Differential panel - Blood CBC auto differential Lab Routine Right shoulder pain, unspecified chronicity Expected: 08/18/2023 (Approximate), Expires: 08/18/2024 [facility] Work Phone: Comment on above: Expected: 08/18/2023 (Approximate), Expires: 08/18/2024 Start: 08-18-2023 End: 08-18-2024 Erythrocyte sedimentation rate Sedimentation rate, automated Lab Routine Right shoulder pain, unspecified chronicity Expected: 08/18/2023 (Approximate), Expires: 08/18/2024 [facility] Comment on above: Expected: 08/18/2023 (Approximate), Expires: 08/18/2024 Start: 08-18-2023 End: 08-18-2024 Interleukin-6 Interleukin-6 Lab Routine Right shoulder pain, unspecified chronicity Expected: 08/18/2023 (Approximate), Expires: 08/18/2024 [facility] Comment on above: Expected: 08/18/2023 (Approximate), Expires: 08/18/2024 Start: 2000 Screening for malign ant neoplasm of breast Mammogram [facility] Start: 1990 Screening for malign ant neoplasm of cervix [facility] Start: 1981 Screening for malign ant neoplasm of cervix Pap Smear [facility] Start: 1960 Screening for malign ant neoplasm of colon [facility] Comprehensive metabo lic 2000 panel - Serum or Plasma [facility] Immunizations Immunization Date Immunization Notes Care Provider Angélica doyle 05-10-2019 influenza virus vaccine, unspecified formulation Jordan Yuan DO Work Phone: [facility] 03-22-2012 tetanus and diphther ia toxoids, adsorbed, preservative free, for adult use (5 Lf of tetanus toxoid and 2 Lf of diphtheria toxoid) John Ashby Other [facility] Payers Date Payer Category Payer [facility] BC [id number] 2021 Unknown [id number] 2021 [facility] [id number] 2.16.840.1.909736.19 2020 Medicare [id number]. 1.13.693.2 .[id number] 2017 Unknown [id number] 1960 Unknown [id number] 2.16.840.1.426045.3.579.2 .647 1960 Unknown [id number] 2.16.840.1.943279.3.579.2 .647 1960 Unknown [id number] 2.16.840.1.368284.3.579.2 .593 1960 Unknown [id number] 2.16.840.1.923408.3.579.2 .593 1960 Unknown [id number] 2.16.840.1.729801.3.579.2 .593 1960 Unknown [id number] 2.16.840.1.958519.3.579.2 .593 1960 Unknown [id number] 2.16.840.1.647240.3.579.2 .593 1960 Unknown [id number] 2.16.840.1.828731.3.579.2 .593 1960 Unknown [id number] 2.16.840.1.455811.3.579.2 .593 1960 Unknown [id number] 2.16.840.1.251454.3.579.2 .593 1960 Unknown [id number] 2.16.840.1.144247.3.579.2 .593 1960 Unknown [id number] 2.16.840.1.965075.3.579.2 .593 1960 Unknown [id number] 2.16.840.1.427629.3.579.2 .593 1960 Unknown [id number] 2.16.840.1.482171.3.579.2 .593 1960 Unknown [id number] 2.16.840.1.772586.3.579.2 .593 1960 Unknown [id number] 2.16.840.1.434421.3.579.2 .593 1960 Unknown [id number] 2.16.840.1.079018.3.579.2 .593 1960 Unknown [id number] 2.16.840.1.764287.3.579.2 .593 1960 Unknown [id number] 2.16.840.1.379910.3.579.2 .593 1960 Unknown [id number] 2.16.840.1.566087.3.579.2 .727 1960 Unknown [id number] 2.16.840.1.866722.3.579.2 .727 1960 Unknown [id number] 2.16.840.1.281852.3.579.2 .727 1960 Unknown [id number] 2.16.840.1.500418.3.579.2 .727 1960 Unknown [id number] 2.16.840.1.644347.3.579.2 .727 1960 Unknown [id number] 2.16.840.1.757120.3.579.2 .727 1960 Unknown [id number] 2.16.840.1.103496.3.579.2 .9 1960 Unknown [id number] 2.16.840.1.911076.3.579.2 .125 1960 Unknown [id number] 2.16.840.1.587722.3.579.2 .1259 1960 Unknown [id number] 2.16.840.1.460639.3.579.2 .9 1960 Unknown [id number] 2.16.840.1.888113.3.579.2 .1259 1960 Unknown [id number] 2.16.840.1.913949.3.579.2 .1259 1960 Unknown [id number] 2.16.840.1.898014.3.579.2 .1259 1960 Unknown [id number] 2.16.840.1.802597.3.579.2 .125 1960 Unknown [id number] 2.16.840.1.173483.3.579.2 .1259 1960 Unknown [id number] 2.16.840.1.698116.3.579.2 .1259 1960 Unknown [id number] 2.16.840.1.190270.3.579.2 .1259 1960 Unknown [id number] 2.16.840.1.368810.3.579.2 .1259 1959 Medicare [id number] 1959 Self-pay 1959 Unknown [id number] 1959 Unknown [id number] Social History Date Type Detail Facility Unknown if ever smoked [employer] Other Start: 07-21-2023 End: 07-17-2024 Sex Assigned At [facility] Tobacco smoking status No Smokin g Status Entered [facility] Start: 07-06-2018 End: 05-24-2023 Tobacco smoking status DEIS Ex-smoker [facility] Start: 04-10-1981 End: 07-11-1990 History of tobacco use Current smoker [facility] Start: 04-10-1981 End: 07-11-1990 History of tobacco use Cigarette Smoker [facility] Start: 05-24-2023 End: 07-17-2024 Tobacco use and exposure Smokeless tobacco non-user [facility] Start: 07-21-2023 End: 07-17-2024 Alcohol intake Current drinker of alcohol (finding) [facility] Start: 07-21-2023 End: 07-17-2024 History of Social function [facility] How [...] 1960 Sex Assigned At Female F [facility] Average Number of Drinks Not on file [facility] Start: 08-29-2024 Sex Female (finding) [facility] Medical Equipment Procedure Code Equipment Code Equipment Origin al Text Equipment Identifier Dates SHOULDER TOTAL ARTHROPLASTY Jordan Yuan DO 04/06/23 Unknown Shoulder R FDA Start: 04-06-2023 SHOULDER TOTAL ARTHROPLASTY Kwabena DO, Jordan A 04/06/23 Unknown Shoulder R FDA Start: 04-06-2023 SHOULDER TOTAL ARTHROPLASTY Kwabena DO, Jordan A 04/06/23 Unknown Shoulder R FDA Start: 04-06-2023 SHOULDER TOTAL ARTHROPLASTY Kwabena DO, Jordan A 04/06/23 Unknown Shoulder R FDA Start: 04-06-2023 SHOULDER TOTAL ARTHROPLASTY Kwabena DO, Jordan A 04/06/23 Unknown Shoulder R FDA Start: 04-06-2023 SHOULDER TOTAL ARTHROPLASTY Kwabena DO, Jordan A 04/06/23 Unknown Shoulder R FDA Start: 04-06-2023 SHOULDER TOTAL ARTHROPLASTY Kwabena DO, Jordan A 04/06/23 Unknown Shoulder R FDA Start: 04-06-2023 SHOULDER TOTAL ARTHROPLASTY Kwabena DO, Jordan A 04/06/23 Unknown Shoulder R FDA Start: 04-06-2023 SHOULDER TOTAL ARTHROPLASTY Kwabena DO, Jordan A 04/06/23 Unknown Shoulder R FDA Start: 04-06-2023 SHOULDER TOTAL ARTHROPLASTY Kwabena DO, Jordan A 04/06/23 Unknown Shoulder R FDA Start: 04-06-2023 SHOULDER TOTAL ARTHROPLASTY Kwabena DO, Jordan A 04/06/23 Unknown Shoulder R FDA Start: 04-06-2023 SHOULDER TOTAL ARTHROPLASTY Kwabena DO, Jordan A 04/06/23 Unknown Shoulder R FDA Start: 04-06-2023 SHOULDER TOTAL ARTHROPLASTY Kwabena DO, Jordan A 04/06/23 Unknown Shoulder R FDA Start: 04-06-2023 SHOULDER TOTAL ARTHROPLASTY Kwabena DO, Jordan A 04/06/23 Unknown Shoulder R FDA Start: 04-06-2023 SHOULDER TOTAL ARTHROPLASTY Kwabena DO, Jordan A 04/06/23 Unknown Shoulder R FDA Start: 04-06-2023 SHOULDER TOTAL ARTHROPLASTY Kwabena DO, Jordan A 04/06/23 Unknown Shoulder R FDA Start: 04-06-2023 SHOULDER TOTAL ARTHROPLASTY Kwabena DO, Jordan A 04/06/23 Unknown Shoulder R FDA Start: 04-06-2023 SHOULDER TOTAL ARTHROPLASTY Kwabena DO, Jordan A 04/06/23 Unknown Shoulder R FDA Start: 04-06-2023 SHOULDER TOTAL ARTHROPLASTY Kwabena DO, Jordan A 04/06/23 Unknown Shoulder R FDA Start: 04-06-2023 SHOULDER TOTAL ARTHROPLASTY Kwabena DO, Jordan A 04/06/23 Unknown Shoulder R FDA Start: 04-06-2023 SHOULDER TOTAL ARTHROPLASTY Kwabena CAMPOS, Jordan A 04/06/23 Unknown Shoulder R FDA Start: 04-06-2023 SHOULDER TOTAL ARTHROPLASTY Kwabena CAMPOS, Jordan A 04/06/23 Unknown Shoulder R FDA Start: 04-06-2023 SHOULDER TOTAL ARTHROPLASTY Kwabena CAMPOS, Jordan A 04/06/23 Unknown Shoulder R FDA Start: 04-06-2023 SHOULDER TOTAL ARTHROPLASTY Kwabena CAMPOS, Jordan A 04/06/23 Unknown Shoulder R FDA Start: 04-06-2023 SHOULDER TOTAL ARTHROPLASTY Kwabena CAMPOS, Jordan A 04/06/23 Unknown Shoulder R FDA Start: 04-06-2023 SHOULDER TOTAL ARTHROPLASTY Kwabena CAMPOS, Jordan A 04/06/23 Unknown Shoulder R FDA Start: 04-06-2023 SHOULDER TOTAL ARTHROPLASTY Kwabena CAMPOS, Jordan A 04/06/23 Unknown Shoulder R FDA Start: 04-06-2023 SHOULDER TOTAL ARTHROPLASTY Kwabena CAMPOS, Jordan A 04/06/23 Unknown Shoulder R FDA Start: 04-06-2023 SHOULDER TOTAL ARTHROPLASTY Kwabena CAMPOS, Jordan A 04/06/23 Unknown Shoulder R FDA Start: 04-06-2023 SHOULDER TOTAL ARTHROPLASTY Kwabena CAMPOS, Jordan A 04/06/23 Unknown Shoulder R FDA Start: 04-06-2023 SHOULDER TOTAL ARTHROPLASTY Kwabena CAMPOS, Jordan A 04/06/23 Unknown Shoulder R FDA Start: 04-06-2023 SHOULDER TOTAL ARTHROPLASTY Kwabena CAMPOS, Jordan A 04/06/23 Unknown Shoulder R FDA Start: 04-06-2023 SHOULDER TOTAL ARTHROPLASTY Kwabena CAMPOS, Jordan A 04/06/23 Unknown Shoulder R FDA Start: 04-06-2023 SHOULDER TOTAL ARTHROPLASTY Kwabena CAMPOS, Jordan A 04/06/23 Unknown Shoulder R FDA Start: 04-06-2023 SHOULDER TOTAL ARTHROPLASTY Kwabena CAMPOS, Jordan A 04/06/23 Unknown Shoulder R FDA Start: 04-06-2023 SHOULDER TOTAL ARTHROPLASTY Kwabena CAMPOS, Jordan A 04/06/23 Unknown Shoulder R FDA Start: 04-06-2023 SHOULDER ARTHROS COPY W/ POSSIBLE REPAIR Kwabena CAMPOS, Jordan A 04/27/24 Non Biological Shoulder L {[id number] FDA Start: 04-27-2024 Functional Status Date Assessment Result Facility 03-19-2024 Functional Status No Yasmani Hardwick [facility] 03-24-2023 Functional Status No Gruber - T [facility] Clinical Notes 05-29-2018 to 07-17-2024 Jordan Rogers Kwabena, DO - 07/17/2024 2:45 PM EST Note Date & Type Note Facility 07-17-2024 History of Presen t illness Narrative Images from the original note were not included. @LORAINE@ Radha Zaidi is a 64 y.o. female who presents for Post-op of the Left Shoulder HPI: History of Present Illness The patient is 11.5 weeks status post left shoulder arthroscopy and rotator cuff repair, with the surgery having been performed on 04/27/2024. She reports a gradual improvement in her condition following the surgical intervention. She has been participating in PT. SUBJECTIVE: MEDICATIONS: Current Outpatient Medications Medication Instructions acetaminophen (TYLENOL EXTRA STRENGTH) 500 mg, Oral, Every 4 hours PRN aspirin 81 MG EC tablet 1 tablet, Daily buPROPion XL (Wellbutrin XL) 300 MG 24 hr tablet citalopram (CeleXA) 10 MG tablet HYDROcodone-acetaminophen (Huntington) 5-325 MG tablet leflunomide (Arava) 10 MG tablet leflunomide 10 mg tablet lidocaine (Lidoderm) 5 % patch 1 patch, Apply externally, Daily, Remove & discard patch within 12 hours or as directed by MD. metoprolol succinate XL (Toprol-XL) 100 MG 24 hr tablet metoprolol succinate ER 100 mg tablet,extended release 24 hr TAKE 1 TABLET DAILY omeprazole (PriLOSEC) [address] capsule omeprazole 40 mg capsule,delayed release oxyCODONE-acetaminophen (Percocet) 5-325 MG tablet TAKE 1-2 TABLETS BY MOUTH EVERY 6 HOURS pregabalin (Lyrica) 150 MG capsule Rinvoq 15 MG tablet sustained-release 24 hour Daily RT tiZANidine (Zanaflex) 4 MG tablet tizanidine 4 mg tablet valACYclovir (VALTREX) 2,000 mg, 2 times daily ALLERGIES: Allergies Allergen Reactions [...] Right [address] Estrella SHOULDER SURGERY Left 04/27/2024 NILA EARL SPINAL FUSION 2000 TOTAL SHOULDER ARTHROPLASTY Right 04/06/2023 R REV - NILA REVIEW OF SYMPTOMS: The review of systems, history and current medications list are all reviewed today. OBJECTIVE: Visit Vitals Ht 5' 4 Wt 164 lb BMI 28.15 kg/m OB Status Unknown Smoking Status Former BSA 1.83 m Physical Exam LEFT SHOULDER Portals well healed. Forward elevation of the shoulder is to 150 degrees, abduction is to 90 degrees, external rotation is to about 75 degrees, ER 45 with elbow at side, and internal rotation is to about T10. Both shoulders can be externally rotated to about 45 degrees. NV status unchanged. Results ASSESSMENT AND PLAN: I reviewed the history, physical exam, diagnostic studies, and diagnosis with the patient. Assessment & Plan 1. Post-operative status following left shoulder arthroscopy and rotator cuff repair. Her recovery trajectory is satisfactory, with no evidence of shoulder stiffness. She was advised to persist with her physical therapy regimen, which will now incorporate additional strengthening exercises. The use of ice was recommended to alleviate soreness and mitigate inflammation, particularly when introducing weights and bands. She was cautioned against overexertion and reminded to allow for rest periods. It was communicated that she may experience fatigue during certain activities, which is a normal part of the recovery process. Follow-up The patient will follow up in 2 months. There are no diagnoses linked to this encounter. Jrodan Yuan D.O. Attestation This note was created using voice recognition through [employer]. documented in this encounter [facility] 06-14-2024 Evaluation note Diagnosis Onset Date Resolution Pernicious anemia acute Decembe r 2023 3:25pm Chronic kidney disease acute Fe bruary 2024 3:15pm Elevated transaminase level acute August 29, 2 025 3:15pm Essential hypertension acute Fe bruary 2024 3:15pm Heart failure with improved ejection fraction (HFimpEF) acute August 3:15pm Nonischemic cardiomyopathy acute August 29, 2 025 3:15pm Pernicious anemia acute Februar y 2024 3:15pm PSVT (paroxysmal supraventricular tachycardia) acute August 29 3:15pm Screening mammogram for breast cancer acute August 29 3:15pm Wellness examination acute 2024 3:15pm [facility] Work Phone: 1(745) 850-333011-26-2024 History of Present illness Narrative* Jordan Yuan, DO - 06/05/2024 9:15 AM EST Images from the original note were not included. @ENCDATE@ Recorrido Levy Zaidi is a 63 y.o. female who presents for No chief complaint on file. HPI: History of Present Illness 5-1/2 weeks status post left shoulder arthroscopy, rotator cuff repair with debridement. Date of surgery 04/27/2024. Patient is ready to commence physical therapy. SUBJECTIVE: MEDICATIONS: Current Outpatient Medications Medication Instructions acetaminophen (TYLENOL EXTRA STRENGTH) 500 mg, Oral, Every 4 hours PRN aspirin 81 MG EC tablet 1 tablet, Daily buPROPion XL (Wellbutrin XL) 300 MG 24 hr tablet citalopram (CeleXA) 10 MG tablet HYDROcodone-acetaminophen (Huntington) 5-325 MG tablet TAKE 1 TABLET BY MOUTH 3 TIMES A DAY NEEDED FOR PAIN*MUS LAST 30 DAYS leflunomide (Arava) 10 MG tablet leflunomide 10 mg tablet lisinopril 5 MG tablet 1 tablet, Daily metoprolol succinate XL (Toprol-XL) 100 MG 24 hr tablet metoprolol succinate ER 100 mg tablet,extended release 24 hr TAKE 1 TABLET DAILY omeprazole (PriLOSEC) [address] capsule omeprazole 40 mg capsule,delayed release oxyCODONE-acetaminophen (Percocet) 5-325 MG tablet TAKE 1-2 TABLETS BY MOUTH EVERY 6 HOURS pregabalin (Lyrica) 150 MG capsule Rinvoq 15 MG tablet sustained-release 24 hour Daily RT tiZANidine (Zanaflex) 4 MG tablet tizanidine 4 mg tablet valACYclovir (VALTREX) 2,000 mg, 2 times daily ALLERGIES: Allergies Allergen Reactions Cephalexin GI intolerance SURGICAL HISTORY: Past Surgical History: Procedure Laterality Date CERVICAL SPINE SURGERY x2 - 2017 ; 2018 - Dr Stallworth FOOT SURGERY Right Padandalam HAND SURGERY Bilateral R - 1999 ; L - 2001 LUMBAR DISCECTOMY 1999 LUMBAR SPINE SURGERY x2 - 1990 & 1992 ORIF TIBIA FRACTURE 2019 ORIF WRIST FRACTURE ROTATOR CUFF REPAIR 2016 SHOULDER SURGERY Right [address] Estrella SHOULDER SURGERY Left 04/27/2024 NILA EARL SPINAL FUSION 2000 TOTAL SHOULDER ARTHROPLASTY Right 04/06/2023 R REV - NILA REVIEW OF SYMPTOMS: The review of systems, history and current medications list are all reviewed today. OBJECTIVE: Visit Vitals OB Status Unknown Smoking Status Former Physical Exam LEFT SHOULDER Portals well healed. Passive forward flexion 130, abduction 90, ER 60 with arm abducted, ER 40 withelbow at side. NV status unchanged. Results ASSESSMENT AND PLAN: I reviewed the history, physical exam, diagnostic studies, and diagnosis with the patient. Assessment & Plan 5-1/2 weeks status post left shoulder arthroscopy, rotator cuff repair with debridement Patient will start PT at [facility]. [place] protocol for small to medium cuff tears will be utilized. Follow up in 6 weeks. Continue to ice the shoulder and allow sufficient time for rest during the week. There are no diagnoses linked to this encounter. Jordan Yuan D.O. Attestation This note was created using voice recognition through [employer]. * ROSEMARY Hernandez - 06/05/2024 9:15 AM ESTAssociated Order(s): L Inj/Asp: L glenohumeral Post-Procedure Diagnose(s): Status post shoulder surgery L Inj/Asp: L glenohumeral on 06/05/2024 2:26 PM Indications: pain Details: 25 G needle, ultrasound-guided Medications: 2 mL betamethasone acetate-betamethasone sodium phosphate 6 (3-3) MG/ML Consent was given by the patient. [id number] History of Present illness Narrative* Jordan Yuan DO - 05/08/2024 10:45 AM EDT Images from the original note were not included. @CARIDADDATE@ Recorrido Levy Zaidi is a 63 y.o. female who presents for Post-op of the Left Shoulder HPI: History of Present Illness The patient is 11 days status post left shoulder arthroscopy, rotator cuff repair with debridement.Date of surgery 04/27/2024. She reports that her stitches have been removed. She is able to move her hand, wrist, and elbow without difficulty. However, she expresses concern about the necessity of wearing the abduction pillow and whether she can drive. SUBJECTIVE: MEDICATIONS: Current Outpatient Medications Medication Instructions aspirin 81 MG EC tablet 1 tablet, Daily buPROPion XL (Wellbutrin XL) 300 MG 24 hr tablet citalopram (CeleXA) 10 MG tablet HYDROcodone-acetaminophen ([place]ton) 5-325 MG tablet TAKE 1 TABLET BY MOUTH 3 TIMES A DAY NEEDED FOR PAIN*MUS LAST 30 DAYS HYDROcodone-acetaminophen ([place]ton) 5-325 MG tablet 1-2 tablets, Oral, Every 4 hours PRN leflunomide (Arava) 10 MG tablet leflunomide 10 mg tablet lisinopril 5 MG tablet 1 tablet, Daily metoprolol succinate XL (Toprol-XL) 100 MG 24 hr tablet metoprolol succinate ER 100 mg tablet,extended release 24 hr TAKE 1 TABLET DAILY omeprazole (PriLOSEC) [address] capsule omeprazole 40 mg capsule,delayed release oxyCODONE-acetaminophen (Percocet) 5-325 MG tablet TAKE 1-2 TABLETS BY MOUTH EVERY 6 HOURS pregabalin (Lyrica) 150 MG capsule Rinvoq 15 MG tablet sustained-release 24 hour Daily RT tiZANidine (Zanaflex) 4 MG tablet tizanidine 4 mg tablet valACYclovir (VALTREX) 2,000 mg, 2 times daily ALLERGIES: Allergies Allergen Reactions [...] Right [address] Estrella SHOULDER SURGERY Left 04/27/2024 NILA ARCR SPINAL FUSION 2000 TOTAL SHOULDER ARTHROPLASTY Right 04/06/2023 R REV - JASpencer REVIEW OF SYMPTOMS: The review of systems, history and current medications list are all reviewed today. OBJECTIVE: Visit Vitals Temp 97.4 F Ht 5' 4 Wt 164 lb BMI 28.15 kg/m OB Status Unknown Smoking Status Former BSA 1.83 m Physical Exam LEFT shoulder Portals are benign, no drainage, elbow and wrist flexion and extension are intact, makes a fist, hand well-perfused Results 3 views left shoulder, Grashey/Zanca/outlet, taken today and saved to the permanent medical record are reviewed. No fractures. ACI WNL. ASSESSMENT AND PLAN: I reviewed the history, physical exam, diagnostic studies, and diagnosis with the patient. Assessment & Plan 1. Post left shoulder arthroscopy, rotator cuff repair with debridement. She is 11 days status post left shoulder arthroscopy with rotator cuff repair and debridement. She is advised to maintain cleanliness of the incision area using soap and water during showers, allowing the Steri-Strips to naturally detach. She should remove the sling while at rest but continue to use the pillow to reduce tension on the tissues. Pendulum exercises are recommended to be performed twice daily, ten times each way, to maintain mobility. Regular icing of the shoulder is also advised. Driving is acceptable as long as it is done safely and without the influence of narcotics. A refill for her medication will be sent to [facility] in [place]. Follow-up Return in 4 weeks for follow up. PT will be initiated at that time. Diagnoses and all orders for this visit: Status post shoulder surgery - XR shoulder 2+ views left - HYDROcodone-acetaminophen ([place]) 5-325 MG tablet; Take 1-2 tablets by mouth every 4 (four) hoursif needed (pain) for up to 7 days Jordan Yuan D.O. Attestation This note was created using voice recognition through [employer]. documented in this encounterSt. Lukes Des Peres [id number] Evaluation + Plan note Extracted from: Title:ANES Post-operative Note---General Author: Wm Bajwa MD Date:04/27/24 Plan Transfer/Discharge: Transfer/Discharge Discharge when meets criteria ( To home ). Extracted from: Title:OSCARS Pre-operative Note 2022 Author:Wm Gunter Date:04/27/24 Patient: RADHA ZAIDI Age: 63 years Sex: Female : 1960 Associated Diagnoses: None Author: Wm Bajwa MD Preoperative Information Anesthesia Preop Info: Time patient last ate or drank 04/27/2024 00:00:00. Anesthesia history: Patient history: None. Family history+: None. Informed consent: Signed by patient. Re-evaluation prior to induction: Initial evaluation reviewed: No significant change. Review of Systems Eye Ear/Nose/Mouth/Throat Respiratory: No shortness of breath, No cough. Cardiovascular: Syncope, syncope twice in the last several months; no antecedent cardiac symptoms; probably orthostatic hypotension; BP meds adjusted by Dr. Ashby, No chest pain. Gastrointestinal: No heartburn. Hematology/Lymphatics: No bleeding tendency. Musculoskeletal Neurologic Health Status Allergies: Allergic Reactions (Selected) No Known Allergies, Allergies (1) ActiveSeverityReaction No Known AllergiesNone Documented Current medications: (Selected) Inpatient Medications Ordered HYDROmorphone 1 mg/mL injectable solution: 0.4 mg = 0.4 mL, Injection, IV Push, q4min PRN Pain for 5 dose(s), Stop date Limited # of times, Routine, Start date 04/27/24 7:08:00 EDT, 04/27/24 7:08:00 EDT Lactated Ringers IV Teodora 1000 mL 1,000 mL: 1,000 mL, IV, 100 mL/hr, Routine, Start date 04/27/24 7:08:00 EDT, 10 hour(s), Total volume (mL): 1,000 Lactated Ringers IV Teodora 1000 mL 1,000 mL: 1,000 mL, IV, 150 mL/hr, Routine, Start date 04/27/24 6:00:00 EDT, 6.7 hour(s), Total volume (mL): 1,000 cefazolin additive + Sodium Chloride 0.9% intravenous solution 50 mL: 2 gram = 1 EA, Powder-Inj, IV Piggyback, PREOP, Routine, Start date 04/27/24 6:00:00 EDT, 100 mL/hr, Infuse over 30 minute(s) promethazine additive 12.5 mg + Sodium Chloride 0.9% IV Teodora 50 mL (INT) 50 mL: IV Piggyback, Once PRN Nausea/Vomiting, Routine, Start date 04/27/24 7:08:00 EDT, 151.5 mL/hr, Infuse over 20 minute(s), 04/27/24 7:08:00 EDT tranexamic acid additive + premix generic diluent 100 mL: 1,000 mg = 100 mL, Soln-IV, IV Piggyback, Once, Stop date 04/27/24 6:00:00 EDT, Routine, Start date 04/27/24 6:00:00 EDT, 200 mL/hr, Infuse over 30 minute(s) Documented Medications Documented Arava 10 mg oral tablet: 10 mg = 1 tab(s), Oral, Daily, Refills(s) 0, Arthritis Lyrica 150 mg Cap: 150 mg = 1 cap(s), Oral, BID, # 60 cap(s), Refills(s) 0, Pain Rinvoq 15 mg oral tablet, extended release: 15 mg = 1 tab(s), Oral, Daily, Refills(s) 0, Arthritis Wellbutrin XL 300 mg/24 hours Tab-ER: 300 mg = 1 tab(s), Oral, BID, Refills(s) 0, Depression Zanaflex 4 mg Tab: See Instructions, 1 tab(s) Oral in AM 3 tabs at bedtime, Refills(s) 0 acetaminophen-hydrocodone 325 mg-5 mg oral tablet: 1 tab(s), Oral, q6hr, Refill(s) 0, Pain citalopram 10 mg Tab: 10 mg = 1 tab(s), Oral, Daily, Refills(s) 0, Depression metoprolol 100 mg ER Tab: 100 mg = 1 tab(s), Oral, Bedtime, Refills(s) 0, High blood pressure, Home Medications (8) Active acetaminophen-hydrocodone 325 mg-5 mg oral tablet 1 tab(s), Oral, q6hr Arava 10 mg oral tablet 10 mg = 1 tab(s), Oral, Daily citalopram 10 mg Tab 10 mg = 1 tab(s), Oral, Daily Lyrica 150 mg Cap 150 mg = 1 cap(s), Oral, BID metoprolol 100 mg ER Tab 100 mg = 1 tab(s), Oral, Bedtime Rinvoq 15 mg oral tablet, extended release 15 mg = 1 tab(s), Oral, Daily Wellbutrin XL 300 mg/24 hours Tab-ER 300 mg = 1 tab(s), Oral, BID Zanaflex 4 mg Tab See Instructions , Medications (6) Active Scheduled: (2) ceFAZolin + Sodium Chloride 0.9% Minibag 50 mL 2 gram 1 EA, IV Piggyback, PREOP tranexamic acid + Generic Diluent 100 mL 1,000 mg 100 mL, IV Piggyback, Once Continuous: (2) Lactated Ringers 1,000 mL 1,000 mL, IV, 150 mL/hr Lactated Ringers 1,000 mL 1,000 mL, IV, 100 mL/hr PRN: (2) HYDROmorphone 1 mg/mL SOLN [F] 0.4 mg 0.4 mL, IV Push, q4min promethazine 12.5 mg + Sodium Chloride 0.9% 50 mL 12.5 mg 0.5 mL, IV Piggyback, Once Problem list: All Problems Bradycardia / SNOMED CT 91841651 / Confirmed High blood pressure / SNOMED CT 1010874785 / Confirmed Rheumatoid arteritis / SNOMED CT 2847999814 / Confirmed Status post partial removal of lung / SNOMED CT 3196900454 / Confirmed, Active Problems (4) Bradycardia High blood pressure 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 Family History: Primary malignant neoplasm of prostate Father Acute myocardial infarction Mother Procedure history: Total shoulder replacement (04789511) on 04/06/2023 at 62 Years. Cervical laminectomy (7046703625). Amputation of finger (705792052). Removal of lung, Partial (59159). Open reduction and internal fixation of fracture Leg (079671628). Foot surgery (4053481795). Lumbar discectomy (002816323). Social History Social & Psychosocial Habits Alcohol 04/26/2024isk Assessment: Denies Alcohol Use Substance Abuse 04/26/2024isk Assessment: Denies Substance Abuse Tobacco 04/26/2024isk Assessment: Denies Tobacco Use . Physical Examination Vital Signs 04/27/2024 6:23 EDT Heart Rate Monitored 80 bpm Systolic Blood Pressure 105 mmHg Diastolic Blood Pressure 70 mmHg Mean Arterial Pressure, Monitered 82 mmHg 04/27/2024 6:22 EDT Heart Rate Monitored 69 bpm SpO2 96 % 04/27/2024 6:22 EDT Temperature Axillary 36.5 DegC 04/27/2024 6:22 EDT Systolic Blood Pressure 117 mmHg Diastolic Blood Pressure 75 mmHg Blood Pressure Location Right arm Mean Arterial Pressure, Monitered 89 mmHg 04/27/2024 6:22 EDT Respiratory Rate 18 br/min Vital Signs (last 24 hrs) Last Charted Temp Loczhgnh54.5 DegC (APR 27 06:) Heart Rate Ijwazruyw08 bpm (APR 27:) SUA325 mmHg (APR 27:) DBP70 mmHg (APR 27) Measurements from flowsheet : Measurements 04/27/2024 6:22 EDT BSA Measured 1.71 m2 (Modified) Body Mass Index Measured 23.51 kg/m2 (Modified) Weight Measured 64 kg (Modified) Airway: Mallampati classification: II (soft palate, fauces, uvula visible). Respiratory: Lungs are clear to auscultation, Respirations are non-labored, adequate air exchange. Cardiovascular: Regular rhythm, No murmur, no JVD or edema. Review / Management Results review: Labs (Last four charted values) Hgb L 9.6(APR 27) Hct L 27.7(APR 27) , Lab results 04/27/2024 6:28 EDT WBC 4.3 E9/L RBC 2.9 E12/L LOW HGB 9.6 gm/dL LOW Hct 27.7 % LOW MCV 97.3 fL MCH 33.7 pg MCHC 34.6 gm/dL RDW 15.3 % HI Platelet 213.0 E9/L MPV 7.0 fL Neutro Auto 55.1 % Lymph Auto 20.4 % Thurston Auto 19.5 % HI Eos Auto 3.7 % Basophil Auto 1.3 % Neutro Absolute 2.4 E9/L Lymph Absolute 0.9 E9/L LOW Thurston Absolute 0.8 E9/L Eos Absolute 0.2 E9/L Basophil Absolute 0.1 E9/L . Plan [place] [employer] (ASA) physical status classification: Class III. Anesthetic Preoperative Plan: Anesthesia General. Regional Interscalene block. Addendum by Garett CHAUHAN, Wm Mistry on April 27, 2024 8:55 EDT [facility] 10-18-2024 Hospital Discharge instructions Patient Education 04/27/2024 10:08:37 Shoulder Cryocuff Patient Instructions - FT (CUSTOM) 04/27/2024 10:08:34 Post Op Patient Instructions - FT (CUSTOM) 04/27/2024 07:48:25 Iris Yuan - After Your Shoulder Arthroscopy (Custom) [place], [place] [facility] AFTER YOUR SHOULDER ARTHROSCOPY 1.Diet: Begin with a liquid diet and advance to your normal diet as tolerated. 2.Activity: You may remove your sling for bathing and to perform gentle range of motion exercises for the hand,wrist, and elbow. Bend and straighten your elbow and wrist several times per day to minimize stiffness. Keep your elbow in close to your side when performing these exercises. Do not move your shoulder until instructed by your surgeon. Swelling after surgery is normal and this will gradually decrease over time. All sports activities are discouraged, at least until your first post-operative visit at which timewe will discuss how and when to resume sports. 3. Driving: Driving is legal. If you are involved in an accident, you must be able to prove that you maintainedfull control of your vehicle. For this reason, it is advised that you do not drive until your strength returns. You should not operate a vehicle or heavy machinery if you are taking narcotic pain medication. 4. Pain: If pain persists despite rest, elevation, and medication, contact your surgeon. You will be given a prescription for pain medications prior to leaving the hospital. Please inform us of any known drug allergy. If you have any problems with the medication, it should be discontinued and our office notified. The sensation of splashing of fluid inside the joint is not cause for concern. It represents residual fluids from surgery and they will be absorbed. Elevation of the arm and application of an ice pack will minimize swelling and discomfort in the first 48 hours after surgery. 5. Bandage: Soft compression dressing has been applied to your shoulder. This dressing should be comfortable and absorb any leakage of fluid or blood from your operated shoulder. Although the dressing may becomemoist or blood stained, this is not usually a cause for concern. If this persists, notify your surgeon. You may remove the dressing 48 hours after your surgery. If you have a bandage in your armpit, leave this in place until follow up. Apply betadine and band-aids to the small incisions once or twice daily as needed. 6.Incisions: The portals of entry may be sore and develop bruising over the next several days. The bruising eventually resolves and does not require any special care. Do not apply creams or lotions to your shoulder. Your portals will heal well on their own. 7.Bathing: You may shower 48 hours after surgery. Bathing or soaking in water should be avoided until your first post-operative visit. 8.Precautions: If you develop fever (101 degrees or above), increasing pain (not relieved by rest, elevation, ice,and medication as prescribed), redness or swelling in your shoulder or arm, please contact the office or the hospital. If you notice increased drainage from the operative portals after the third day,this should also be reported. 9.Return Visit: Your first post-operative follow-up appointment is generally between 7 and 14 days after discharge from the hospital. You will be given an appointment card with your appointment information. Do not hesitate to call the office or the hospital if any problems or questions arise before your appointment. Jordan Yuan, DO [facility] [address] [place], [place] [id number] Reviewed: Follow Up Care 02/23/2024 15:25:37 With:Jordan Yuan Address: [address] [place] [address]- Business (1) When:05/08/2024 10:45:00 Comments:Call for any problems.Keep scheduled appointmentAppointment has already been scheduled [facility] 10-18-2024 NoteProgress Note-Physician Patient: RADHA ZAIDI Age: 63 years Sex: Female : 1960 Associated Diagnoses: None Author: Wm Bajwa MD Postoperative Information Postoperative disposition: Postoperative disposition: To PACU. Optimetrix number: Optimetrix number [id number]. Anesthetic utilized: General. Regional: Interscalene Block. Health Status Allergies: Allergic Reactions (Selected) No Known Allergies Physical Examination Vital Signs 04/27/2024 10:10 EDT Temperature Axillary 36.2 DegC Heart Rate Monitored 80 bpm Respiratory Rate Monitored 20 br/min Systolic Blood Pressure 129 mmHg Diastolic Blood Pressure 85 mmHg Blood Pressure Location Right arm Mean Arterial Pressure, Cuff 100 mmHg SpO2 97 % Pain Assessment: Controlled. General: Awake, Appropriate. Respiratory: Adequate air exchange. Cardiovascular: Stable. Neurological Assessment Anesthetic outcome No anesthetic complications noted. Adequate pain relief. Review / Management Condition: Stable. Plan Transfer/Discharge: Transfer/Discharge Discharge when meets criteria ( To home ).[facility] HospitalComment on above:Result Comment: Electronically Signed By: Garett CHAUHAN, Wm Mistry\.br\Date and Time Signed: 04/27/24 10:30 EDT 04-27-2024 NotePatient Education - Text [place], [place] [facility] AFTER YOUR SHOULDER ARTHROSCOPY 1. Diet: Begin with a liquid diet and advance to your normal diet as tolerated. 2. Activity: You may remove your sling for bathing and to perform gentle range of motion exercises for the hand,wrist, and elbow. Bend and straighten your elbow and wrist several times per day to minimize stiffness. Keep your elbow in close to your side when performing these exercises. Do not move your shoulder until instructed by your surgeon. Swelling after surgery is normal and this will gradually decrease over time. All sports activities are discouraged, at least until your first post-operative visit at which timewe will discuss how and when to resume sports. 3. Driving: Driving is legal. If you are involved in an accident, you must be able to prove that you maintainedfull control of your vehicle. For this reason, it is advised that you do not drive until your strength returns. You should not operate a vehicle or heavy machinery if you are taking narcotic pain medication. 4. Pain: If pain persists despite rest, elevation, and medication, contact your surgeon. You will be given a prescription for pain medications prior to leaving the hospital. Please inform us of any known drug allergy. If you have any problems with the medication, it should be discontinued and our office notified. The sensation of splashing of fluid inside the joint is not cause for concern. It represents residual fluids from surgery and they will be absorbed. Elevation of the arm and application of an ice pack will minimize swelling and discomfort in the first 48 hours after surgery. 5. Bandage: Soft compression dressing has been applied to your shoulder. This dressing should be comfortable and absorb any leakage of fluid or blood from your operated shoulder. Although the dressing may becomemoist or blood stained, this is not usually a cause for concern. If this persists, notify your surgeon. You may remove the dressing 48 hours after your surgery. If you have a bandage in your armpit, leave this in place until follow up. Apply betadine and band-aids to the small incisions once or twice daily as needed. 6. Incisions: The portals of entry may be sore and develop bruising over the next several days. The bruising eventually resolves and does not require any special care. Do not apply creams or lotions to your shoulder. Your portals will heal well on their own. 7. Bathing: You may shower 48 hours after surgery. Bathing or soaking in water should be avoided until your first post-operative visit. 8. Precautions: If you develop fever (101 degrees or above), increasing pain (not relieved by rest, elevation, ice,and medication as prescribed), redness or swelling in your shoulder or arm, please contact the office or the hospital. If you notice increased drainage from the operative portals after the third day,this should also be reported. 9. Return Visit: Your first post-operative follow-up appointment is generally between 7 and 14 days after discharge from the hospital. You will be given an appointment card with your appointment information. Do not hesitate to call the office or the hospital if any problems or questions arise before your appointment. Jordan Yuan, DO [facility] [address] [place] [address] Reviewed: [facility] NoteProgress Note-Physician Patient: RADHA ZAIDI Age: 63 years Sex: Female : 1960 Associated Diagnoses: None Author: Garett CHAUHAN, Wm Mistry Preoperative Information Anesthesia Preop Info: Time patient last ate or drank 04/27/2024 00:00:00. Anesthesia history: Patient history: None. Family history+: None. Informed consent: Signed by patient. Re-evaluation prior to induction: Initial evaluation reviewed: No significant change. Review of Systems Eye Ear/Nose/Mouth/Throat Respiratory: No shortness of breath, No cough. Cardiovascular: Syncope, syncope twice in the last several months; no antecedent cardiac symptoms; probably orthostatic hypotension; BP meds adjusted by Dr. Ashby, No chest pain. Gastrointestinal: No heartburn. Hematology/Lymphatics: No bleeding tendency. Musculoskeletal Neurologic Health Status Allergies: Allergic Reactions (Selected) No Known Allergies, Allergies (1) Active Severity Reaction No Known Allergies None Documented Current medications: (Selected) Inpatient Medications Ordered HYDROmorphone 1 mg/mL injectable solution: 0.4 mg = 0.4 mL, Injection, IV Push, q4min PRN Pain for 5 dose(s), Stop date Limited # of times, Routine, Start date 04/27/24 7:08:00 EDT, 04/27/24 7:08:00 EDT Lactated Ringers IV Teodora 1000 mL 1,000 mL: 1,000 mL, IV, 100 mL/hr, Routine, Start date 04/27/24 7:08:00 EDT, 10 hour(s), Total volume (mL): 1,000 Lactated Ringers IV Teodora 1000 mL 1,000 mL: 1,000 mL, IV, 150 mL/hr, Routine, Start date 04/27/24 6:00:00 EDT, 6.7 hour(s), Total volume (mL): 1,000 cefazolin additive + Sodium Chloride 0.9% intravenous solution 50 mL: 2 gram = 1 EA, Powder-Inj, IVPiggyback, PREOP, Routine, Start date 04/27/24 6:00:00 EDT, 100 mL/hr, Infuse over 30 minute(s) promethazine additive 12.5 mg + Sodium Chloride 0.9% IV Teodora 50 mL (INT) 50 mL: IV Piggyback, Once PRN Nausea/Vomiting, Routine, Start date 04/27/24 7:08:00 EDT, 151.5 mL/hr, Infuse over 20 minute(s),04/27/24 7:08:00 EDT tranexamic acid additive + premix generic diluent 100 mL: 1,000 mg = 100 mL, Soln-IV, IV Piggyback,Once, Stop date 04/27/24 6:00:00 EDT, Routine, Start date 04/27/24 6:00:00 EDT, 200 mL/hr, Infuse over 30 minute(s) Documented Medications Documented Arava 10 mg oral tablet: 10 mg = 1 tab(s), Oral, Daily, Refills(s) 0, Arthritis Lyrica 150 mg Cap: 150 mg = 1 cap(s), Oral, BID, # 60 cap(s), Refills(s) 0, Pain Rinvoq 15 mg oral tablet, extended release: 15 mg = 1 tab(s), Oral, Daily, Refills(s) 0, Arthritis Wellbutrin XL 300 mg/24 hours Tab-ER: 300 mg = 1 tab(s), Oral, BID, Refills(s) 0, Depression Zanaflex 4 mg Tab: See Instructions, 1 tab(s) Oral in AM 3 tabs at bedtime, Refills(s) 0 acetaminophen-hydrocodone 325 mg-5 mg oral tablet: 1 tab(s), Oral, q6hr, Refill(s) 0, Pain citalopram 10 mg Tab: 10 mg = 1 tab(s), Oral, Daily, Refills(s) 0, Depression metoprolol 100 mg ER Tab: 100 mg = 1 tab(s), Oral, Bedtime, Refills(s) 0, High blood pressure, Home Medications (8) Active acetaminophen-hydrocodone 325 mg-5 mg oral tablet 1 tab(s), Oral, q6hr Arava 10 mg oral tablet 10 mg = 1 tab(s), Oral, Daily citalopram 10 mg Tab 10 mg = 1 tab(s), Oral, Daily Lyrica 150 mg Cap 150 mg = 1 cap(s), Oral, BID metoprolol 100 mg ER Tab 100 mg = 1 tab(s), Oral, Bedtime Rinvoq 15 mg oral tablet, extended release 15 mg = 1 tab(s), Oral, Daily Wellbutrin XL 300 mg/24 hours Tab-ER 300 mg = 1 tab(s), Oral, BID Zanaflex 4 mg Tab See Instructions , Medications (6) Active Scheduled: (2) ceFAZolin + Sodium Chloride 0.9% Minibag 50 mL 2 gram 1 EA, IV Piggyback, PREOP tranexamic acid + Generic Diluent 100 mL 1,000 mg 100 mL, IV Piggyback, Once Continuous: (2) Lactated Ringers 1,000 mL 1,000 mL, IV, 150 mL/hr Lactated Ringers 1,000 mL 1,000 mL, IV, 100 mL/hr PRN: (2) HYDROmorphone 1 mg/mL SOLN [F] 0.4 mg 0.4 mL, IV Push, q4min promethazine 12.5 mg + Sodium Chloride 0.9% 50 mL 12.5 mg 0.5 mL, IV Piggyback, Once Problem list: All Problems Bradycardia / SNOMED CT 01573626 / Confirmed High blood pressure / SNOMED CT 0487224305 / Confirmed Rheumatoid arteritis / SNOMED CT 6640730705 / Confirmed Status post partial removal of lung / SNOMED CT 5607316087 / Confirmed, Active Problems (4) Bradycardia High blood pressure 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 Family History: Primary malignant neoplasm of prostate Father Acute myocardial infarction Mother Procedure history: Total shoulder replacement (75902046) on 04/06/2023 at 62 Years. Cervical laminectomy (8754290833). Amputation of finger (069386290). Removal of lung, Partial (87043). Open reduction and internal fixation of fracture Leg (168255535). Foot surgery (1271273074). Lumbar discectomy (904797755). Social History Social & Psychosocial H (more content not included)...[facility] HospitalComment on above:Result Comment: Electronically Signed By: Garett CHAUHAN, Wm Mistry\.br\Date and Time Signed: 04/27/24 08:55 [id number] History of Present illness Narrative* Jordan Yuan, - 11/15/2023 3:45 PM EDT Images from the original note were not included. @ENCDATE@ [facility] Levy Zaidi is a 63 y.o. [...] tablet citalopram (CeleXA) 10 MG tablet HYDROcodone-acetaminophen ([place]) 5-325 MG tablet TAKE 1 TABLET BY [...] Shoulder scope per Dr Estrella SPINAL FUSION 1999 TOTAL SHOULDER ARTHROPLASTY Right 04/06/2023 R REV [...] Jordan Yuan D.O. Attestation documented in this encounterSt. Lukes [facility] HospitalOtzggwphth76-07-1964 NoteUT Cardiology - [facility] Subjective Radha Zaidi is a [...] In the past she was admitted to [facility] with pneumonia and empyema, underwent chest tube, [...] mouth if needed., Disp: , Rfl: HYDROcodone-acetaminophen ([place]) 5-325 mg tablet, TAKE 1 TABLET BY [...] 152, HDL 74. Imagin (more content not included)...[facility] 08-18-2023 History of Present illness Narrative* Kathi Neumann - 08/18/2023 3:45 PM EST Images from the original note were not [...] She has been wearing her sling almost front desk lead as instructed since her last visit in July.She states her hand has improved. She points to the anterior aspect of the shoulder as the locationof her discomfort. SUBJECTIVE: MEDICATIONS: Current Outpatient Medications Medication Instructions aspirin 81 MG EC tablet 1 tablet, Oral, Daily buPROPion XL (Wellbutrin XL) 300 MG 24 hr tablet citalopram (CeleXA) 10 MG tablet HYDROcodone-acetaminophen ([place]) 5-325 MG tablet TAKE 1 TABLET BY [...] contracts. She is tender over the coracoid proce ss. No tenderness over the scapular spine and [...] care. Jordan Yuan D.O. documented in this encounterSt. Lukes Des Pe[facility] [id number] Evaluation note* Encounter Date Diagnosis Assessment Notes Treatment Notes Treatment Clinical Notes Aug, Wellness examination (ICD-10 - Z00.00) Healthy diet and exercise. Reviewed age-appropriate preventive testing recommended. Aug, Primary hypertension (ICD-10 - I10) This patient is instructed to consume a healthy, low-fat, low-salt diet. They are also encouraged to continue exercise to achieve/maintain a normal BMI. Patient is instructed on [...] Symptoms tolerable, continue medical treatment f/u Rheumatology [employer] Other 12-19-2023 Evaluation note* Encounter Date Diagnosis [...] Jun, Immunosuppressed sta tus (ICD-10 - D84.9) [employer] Other 09-28-2023 Evaluation + Plan noteExtracted from: [...] Basic PRE Author:Hill Rai DO Date:04/06/23 Plan [place] [employer] (ASA) physical status classification: Class II. Anesthetic Preoperative Plan: Anesthesia General. [facility]. [facility]09-28-2023 Hospital Discharge instructions Patient Education 04/07/2023 07:41:33 Iris Yuan - Shoulder Replacement (Custom) [place], [place] [facility] DISCHARGE INSTRUCTIONS: SHOULDER REPLACEMENT [...] persistent vomiting. Jordan Yuan DO [facility] [address] [place] [address] Reviewed: Follow Up Care 03/09/2023 13:56:15 With:Jordan Yuan Address: [address] [place] [phone] Business (1) When:04/19/2023 14:15:00 With:JOHN ASHBY Address: [facility] [place] [address]- Business (1) When: Unknown [facility]09-28-2023 NotePatient: RADHA ZAIDI Age: 62 years Sex: [...] 15 mg, 1 tab(s), Oral, Daily, 0 Refill(s)[facility]:Result Comment: Electronically Signed By: Jordan Yuan DO\Date and Time Signed: 04/07/23 07:42 [id number] [facility]09-16-2023 Evaluation note* Encounter Date Diagnosis Assessment Notes Treatment Notes Treatment Clinical Notes Mar, Major depressive disorder, single episode, 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) [facility] Other 07-05-2023 Evaluation note* Encounter Date Diagnosis Assessment Notes Treatment Notes Treatment Clinical Notes Jan, Overweight (ICD-10 - E66.3) [facility] Other 07-03-2023 Evaluation note* Encounter Date Diagnosis [...] nervousness and lightheadedness are common w/d symptoms [employer] Other 06-02-2023 Evaluation note* Encounter Date Diagnosis Assessment Notes Treatment Notes Treatment Clinical Notes Dec, Overweight (ICD-10 - E66.3) [employer] Other 06-01-2023 Evaluation note* Encounter Date Diagnosis [...] will be very costly. Suggested referral to Ro[facility] Bolter [employer] Other 05-02-2023 Evaluation note* Encounter Date Diagnosis [...] normal BMI. Monitor BP while taking Adipex [employer] Other 03-30-2023 NoteCONSULTATION PROCEDURE DATE: 10/07/2022 PROCEDURE: [...] at least 80% reduction of pain symptoms.[facility] [id number] NoteCONSULTATION CONSULTATION DATE: 10/07/2022 ADDENDUM: On examination of the right shoulder, the patient did have a positive right sided full can test, a positive Neida's test, Apley's test and cross body test. All four positive on examination date 10/07/2022.[facility] [id number] NoteCONSULTATION CONSULTATION DATE: 10/07/2022 TO: John Ashby [...] activity modification, use of Zanaflex, Lyrica and Huntington. RECOMMENDATIONS: I recommend proceeding with a right [...] right shoulder without contrast and physical therapy.[facility] [id number] Evaluation note* Encounter Date Diagnosis Assessment Notes Treatment Notes Treatment Clinical Notes Aug, Anemia (ICD-10 - D64.9) [employer] Other 01-16-2023 Evaluation note* Encounter Date Diagnosis Assessment Notes Treatment Notes Treatment Clinical Notes Jul, Rheumatoid arthritis involving left hand with positive rheumatoid factor (ICD-10 - M05.742) RA appears to be in remision, f/u Rheumatology 16 [place], 2023 Paroxysmal tachycardia, unspecified (ICD-10 - I47.9) No [...] Healthy diet, exercise w/o change in treatment [employer] Other [id number] NoteCONSULTATION PROCEDURE DATE: 07/09/2022 PREOPERATIVE DIAGNOSIS: Right [...] will be followed up in the office.[facility] [id number] NoteCONSULTATION CONSULTATION DATE: 07/09/2022 HISTORY OF PRESENT [...] possible increase in dose. She also takes Huntington 5/325 t.i.d. and Zanaflex 4 mg three [...] three months' time, unless otherwise indicated. [facility] [id number] NoteCONSULTATION CONSULTATION DATE: 05/20/2022 HISTORY OF PRESENT [...] medications include Celexa, Lyrica 50 mg b.i.d., Huntington 5/325 t.i.d. and Zanaflex. Patient is having [...] level of C3-4. We will refill her Huntington at 5/325 t.i.d. Supportive home measures were discussed such as heat and a menthol heat rub, as well as vitamin compliance. The patient agrees to move forward with the plan, will be followed up in the clinic thereafter.[facility] [id number] NoteCONSULTATION PROCEDURE DATE: 02/17/2022 PRE AND POSTOPERATIVE [...] will be followed up in the clinic.[facility] [id number] NotePROCEDURE: XR SHOULDER RT 2V or > COMPARISON: None. HISTORY: Pain of right shoulder joint FINDINGS: BONES:No acute fracture or dislocation. Minimal degenerative changes. Cervical fusion hardware SOFT TISSUES:Negative. No visible soft tissue swelling. EFFUSION:None visible. OTHER: Negative. IMPRESSION: No acute abnormality Electronically authenticated by: VANDANA COLLINS Date: 2022-02-16 19:11[facility]07-26-2022 NoteCONSULTATION CONSULTATION DATE: 02/02/2022 CHIEF COMPLAINT: [...] aggravates the pain. The patient currently takes Huntington 5/325 t.i.d., wellbutrin 150 mg, Lyrica 50 [...] point tenderness along the right bicipital tendon. Manager Molecular strength is maintained. IMPRESSION: Current working diagnosis [...] like to proceed. 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 Cold weather and bending bother her as well. Medications include Lyrica 75 mg t.i.d., which she has not been taking for the past two months; Celexa, Huntington 5/325 t.i.d., Zanaflex and RINVOQ. She feels that her pain is managed well with her Huntington, but is concerned about the neuropathic pain [...] in need of a refill for her Huntington today, which we will give 5/325 t.i.d. [...] three months' time unless otherwise indicated. [facility] Signed and Approved by: JACQUIE OLIVAS . 11/12/2021 16:27:00[facility]11-19-2018 Evaluation note* Diagnosis Onset Date Resolution Status PSVT (paroxysmal supraventricular tachycardia) acute Heart failure with improved ejection fraction (HFimpEF) acute Nonischemic cardiomyopathy a cute Orthostatic hypotension May 29, 2018 acute Anemia acute Essential hypertension acute ERICH (generalized anxiety disorder) acute Heart failure with improved ejection fraction (HFimpEF) acute Nonischemic cardiomyopathy a cute Preop exam for internal medicine acute PSVT (paroxysmal supraventricular tachycardia) acute [facility] Work Phone: [phone]) 676-209111-19-2018 Evaluation note* Diagnosis Onset Date Resolution Status Heart failure with improved ejection fraction (HFimpEF) acute Nonischemic cardiomyopathy a cute Orthostatic hypotension May 29, 2018 acute Anemia acute Essential hypertension acute ERICH (generalized anxiety disorder) acute Heart failure with improved ejection fraction (HFimpEF) acute Nonischemic cardiomyopathy a cute Preop exam for internal medicine acute PSVT (paroxysmal supraventricular tachycardia) acute Rheumatoid arthritis acute [facility] Work Phone: Evaluation + Plan note Future Appointments Appointment Date:04/06/2023 09:30:00 AM Scheduled Provider: Location:[facility] Future Appointments Appointment Date:04/06/2024 12:00:00 PM Scheduled Provider: Location:[facility] Appointment Type:Surgery FT [facility] Evaluation noteNo [facility] [employer] Other Evaluation note* Diagnosis Right shoulder pain, unspecified chronicity- Primary [facility] Diagnosis Onset Date Resolution Status Hypertension acute Overweight acute PSVT (paroxysmal supraventricular tachycardia) [facility] Work Phone: Evaluation note* Diagnosis Onset Date Resolution Status Hypertension acute Overweight acute PSVT (paroxysmal supraventricular tachycardia) acute Heart failure with improved ejection fraction (HFimpEF ) acute Nonischemic cardiomyopathy a [facility] Work Phone: Evaluation note* Diagnosis Status post shoulder surgery- Primary Other postprocedural status documented in this encounter [facility] HealthcareEvaluation [facility]* Diagnosis Onset Date Resolution Status Heart failure with improved ejection fraction (HFimpEF ) acute Nonischemic cardiomyopathy a cute Essential hypertension acute ERICH (generalized anxiety disorder) acute Heart failure with improved ejection fraction (HFimpEF ) acute Nonischemic cardiomyopathy a cute Preop exam for internal medicine acute PSVT (paroxysmal supraventricular tachycardia) acute Rheumatoid arthritis acute Essential hypertension acute High risk medication use acu te Nonischemic cardiomyopathy a cute Pernicious anemia acute PSVT (paroxysmal supraventricular tachycardia) acute [facility] Work Phone: Evaluation note* Diagnosis Status post shoulder surgery- Primary Other postprocedural status documented in this encounter [facility] HealthcareEvaluation note* Diagnosis Status post shoulder surgery- Primary Other postprocedural status documented in this encounter [facility] HealthcareEvaluation note* Diagnosis S/P arthroscopy of left shoulder- Primary documented in this encounter [facility] HealthcareHistory general Narrative - Reported* Type Description [...] Surgical History ORIF, proximal fibula Surgical History [facility] 2011 Surgical History Lumbar fusion Surgical History ACDF C4-6 05/30 Hospitalization History See Above [employer] Other History general Narrative - Reported* Type [...] Surgical History ORIF, proximal fibula Surgical History [facility] 2011 Surgical History Lumbar fusion Surgical History ACDF C4-6 05/30 Surgical History Right reverse total shoulder ar throplasty 03/2023 Hospitalization History See Above [employer] Other Hospital course Narrative No data available for this section [facility] No data available for this section [facility] No data available for this section [facility] Summary Purpose Family History Relationship Condition Age [...] Advance Directives No April 24, 2018 1:59pm Advance Directive Response Recorded Date/ Time Advance Directives No April 24, 2018 12:59pm Chief Complaint and Reason for Visit Chief [...] testing results/surgery clearance B12 Shot B12 shot 4 month f/u Reason for Visit Heart failure with i mproved ejection fraction (HFimpEF) Nonischemic cardiomyopathy Essential hypertension ERICH (generalized anxiety disorder) Heart failure with improved ejection fraction (HFimpEF) Nonischemic cardiomyopathy Preop exam for internal medicine PSVT (paroxysmal supraventricular tachycardia) Rheumatoid arthritis Essential hypertension High risk medication use Nonischemic cardiomyopathy Pernicious anemia PSVT (paroxysmal supraventricular tachycardia) Chief Complaint low bp dizzy lighthe ad discuss testing results/surgery clearance B12 Shot B12 shot 4 month f/u B12 shot Reason for Visit Heart failure with i mproved ejection fraction (HFimpEF) Nonischemic cardiomyopathy Essential hypertension ERICH (generalized anxiety disorder) Heart failure with improved ejection fraction (HFimpEF) Nonischemic cardiomyopathy Preop exam for internal medicine PSVT (paroxysmal supraventricular tachycardia) Rheumatoid arthritis Essential hypertension High risk medication use Nonischemic cardiomyopathy Pernicious anemia PSVT (paroxysmal supraventricular tachycardia) Chief Complaint Admit Date b12 shot June 14, 2024 3 :25pm Wellness August 29, 2024 3:15pm Reason for Visit Admit Date Pernicious anemia June 14, 2024 3 :25pm Chronic kidney disease August 29 3:15pm Elevated transaminase level August 3:15pm Essential hypertension August 29 3:15pm Heart failure with improved ejection fra ction (HFimpEF) August 29, 2024 3:15pm Nonischemic cardiomyopathy August 3:15pm Pernicious anemia August 29, 2024 3:15pm PSVT (paroxysmal supraventricular tachyc ardia) August 29, 2024 3:15pm Screening mammogram for breast cancer [facility] 2024 3:15pm Wellness examination August 29, 2024 3:15pm Additional Source Comments INFORMATION SOURCE (unrecogn ized section and content) DATE CREATED AUTHOR 12/29/2017 [facility] DATE CREATED AUTHOR AUTHOR'S ORGANIZ ATION 08/29/2018 [facility] DATE CREATED AUTHOR AUTHOR'S ORGANIZ ATION 05/13/2020 [facility] DATE CREATED AUTHOR AUTHOR'S ORGANIZ ATION 10/15/2022 [facility] DATE CREATED AUTHOR AUTHOR'S ORGANIZ ATION 11/07/2023 [facility] DATE CREATED AUTHOR AUTHOR'S ORGANIZ ATION 03/20/2024 [facility] DATE CREATED AUTHOR AUTHOR'S ORGANIZ ATION 04/29/2024 [employer] [facility] DATE CREATED AUTHOR AUTHOR'S ORGANIZ ATION 05/01/2024 [employer] [facility] DATE CREATED AUTHOR AUTHOR'S ORGANIZ ATION 07/23/[address] [facility] EPIC REASON FOR VISIT (unrecogniz ed section and content) Reason Comments Follow-up R rev TSA 04/06/23 Reason Comments Follow-up R shoulder pain, Rev TSA 04/06/23 poss coracoid an/or accromial fx ma Reason Comments Post-op Reason Comments Post-op Patient Care team informatio n (unrecognized section and content) Team Status: Active Member Role Status Dates John Ashby DO Primary Care Provider Active Team Status: Inactive Member Role Status Dates John Ashby DO Primary Care Provider Active Start: June 14, 2024 End: June 14, 2024 Sherley Colon MD Attending Provider Active St art: June 14, 2024 End: June 14, 2024 Team Status: Active Member Role Status Dates John Ashby DO Primary Care Provider Active Start: June 21, 2024 Yanick Florez MD Attending Provider Active St art: June 21, 2024 Team Status: Inactive Member Role Status Arsenio Ashby DO Primary Care Provide r, Attending Provider Active Start: August 29, 2024 End: August 29, 2024 Team Status: Active Member Role Status Arsenio Ashby DO Primary Care Provider Active Team Status: Active Member Role Status Arsenio Ashby DO Primary Care Provider Active Start: February 02, 2024 Yanick Florez MD Attending Provider Active St art: February 02, 2024 Team Status: Active Member Role Status Arsenio Ashby DO Primary Care Provide r, Attending Provider Active Start: February 14, 2024 Team Status: Inactive Member Role Status Arsenio Ashby DO Primary Care Provide r, Attending Provider Active Start: February 29, 2024 End: February 29, 2024 Team Status: Inactive Member Role Status Arsenio Ashby DO Primary Care Provide r, Attending Provider Active Start: March 27, 2024 End: March 27, 2024 Team Status: Inactive Member Role Status Arsenio Ashby DO Primary Care Provide r, Attending Provider Active Start: March 30, 2024 End: March 30, 2024 Team Status: Inactive Member Role Status Arsenio Ashby DO Primary Care Provide r, Attending Provider Active Start: December 28, 2023 End: December 28, 2023 [employer] Relationship Specialty Start Date End Date John Ashby MD [address] [facility] [place] [phone] PCP - General Internal Medicine 12/23/22 [employer] Relationship Specialty Start Date End Date John Ashby MD [address] [place] [phone] PCP - General Internal Medicine 12/23/22 Team [...] April 10, 2024 End: April 10, 2024 [employer] Relationship Specialty [place] [address] [place], [place] [phone] PCP - General Internal Medicine 12/23/22 Team Status: Inactive Member Role Status Dates John Ashby DO Primary Care Provide r, Attending Provider Active Start: April 17, 2024 End: April 17, 2024 Team Status: Inactive Member Role Status Dates John Ashby DO Primary Care Provide r, Attending Provider Active Start: May 09, 2024 End: May 09, 2024 [employer] Relationship Specialty Start Date End Date John Ashby MD [address] [place] [phone] PCP - General Internal Medicine 12/23/22 [employer] Relationship Specialty [place] [address] [place] [phone] PCP - General Internal Medicine 12/23/22 [employer] Relationship Specialty Start Date End Date John Ashby MD [address] [facility] [place] [phone] PCP - General Internal Medicine 12/23/22 Team Status: Inactive Member Role Status Dates John Ashby DO Primary Care Provider Active Start: June 14, 2024 End: June 14, 2024 Sherley Colon MD Attending Provider Active St art: June 14, 2024 End: June 14, 2024 Team Status: Active Member Role Status Dates John Ashby DO Primary Care Provider Active Start: June 21, 2024 Yanick Florez MD Attending Provider Active St art: June 21, 2024 Team Status: Inactive Member Role Status Dates John Ashby DO Primary Care Provide r, Attending Provider Active Start: August 29, 2024 End: August 29, 2024 Goals (unrecognized section and content) [...] BE BASED ON THE PRIMARY CLINICAL RECORDS. [facility]. provides no warranty or guarantee of the accuracy or completeness of information in this document.
[2024-08-31 13:02] LABS: Creatinine Urine Random 176.19 mg/dL (20.00-300.00); Microalbumin Urine Random 1.6 mg/dL (<=30.0)
[2024-08-31 13:07] LABS: Basophils Percent Auto 0.7 % (0.2-2.0); Eosinophils Absolute Auto 0.2 10^3/uL (0.0-0.7); Eosinophils Percent Auto 2.6 % (0.9-7.0); Hematocrit 34.7 % (36.0-48.0); Hemoglobin 10.9 g/dL (12.0-16.0); Immature Granulocytes Abs Auto 0.02 10^3/uL (0.00-0.03); Immature Granulocytes Pct Auto 0.4 % (0.0-0.5); Lymphocytes Absolute Auto 1.4 10^3/uL (1.2-3.8); Lymphocytes Percent Auto 23.9 % (20.5-60.0); Mean Corpuscular HGB Conc 31.4 g/dL (29.9-35.2); Mean Corpuscular Hemoglobin 31.2 pg (26.7-34.0); Mean Corpuscular Volume 99.4 fL (81.0-99.0); Mean Platelet Volume 9.1 fL (9.5-13.5); Monocytes Absolute Auto 0.6 10^3/uL (0.3-0.8); Monocytes Percent Auto 11.2 % (1.7-12.0); Neutrophils Absolute Auto 3.5 10^3/uL (1.4-6.5); Neutrophils Percent Auto 61.2 % (43.0-75.0); Platelet Count 225 10^3/uL (150-450); Red Blood Count 3.49 10^6/uL (4.20-5.40); Red Cell Distribution Width 15.9 % (11.0-15.0); White Blood Count 5.7 10^3/uL (4.0-11.0)
[2024-08-31 13:40] LABS: Anion Gap 13.4; BUN Creatinine Ratio 15.5; Bilirubin Total 0.5 mg/dL (0.2-1.0); Calcium 9.2 mg/dL (8.5-10.1); Carbon Dioxide 26.9 mmol/L (21.0-32.0); Chloride 107 mmol/L (98-107); Estimated GFR (African America 50 (>=60 mL/min/1.73m^2); Estimated GFR (Non-African Ame 42 (>=60 mL/min/1.73m^2); Glucose 72 mg/dL (74-106); Potassium 4.3 mmol/L (3.5-5.1); Sodium 143 mmol/L (136-145)
[2024-08-31 13:41] LABS: Alanine Aminotransferase 15 U/L (14-59); Albumin Globulin Ratio 1.2; Albumin Level 3.8 g/dL (3.4-5.0); Alkaline Phosphatase 60 U/L (46-116); Aspartate Amino Transferase 9 U/L (15-37); Chol HDL Ratio 2.9; Cholesterol 196 mg/dL (<=200); Globulin 3.2 g/dL; HDL Cholesterol 68 mg/dL (40-60); Triglycerides 66 mg/dL (<=150); VLDL CHOLESTEROL 13.2 mg/dL
[2024-08-31 13:42] LABS: Thyroid Stimulating Hormone 1.339 uIU/mL (0.358-3.740)
== END 2024-08-31 12:24 | disposition home or self-care (01) ==
PROVIDERS: PCP Internal Medicine; Visit Provider Internal Medicine
DX: Z00.00 Encounter for general adult medical examination without abnormal findings (principal); R53.83 Other fatigue; N18.9 Chronic kidney disease, unspecified; E78.00 Pure hypercholesterolemia, unspecified; I42.8 Other cardiomyopathies
CPT/HCPCS: 36415; 80053; 80061; 82043; 82570; 84443; 85025

== ENCOUNTER 2024-09-08 06:00 | Outpatient (RCR) | payer MEDICARE, SELFPAY | END 2024-10-06 07:16 | disposition home or self-care (01) | LOC: PT 06:00 | PROVIDERS: PCP Internal Medicine; Visit Provider Orthopaedic Surgery | DX: M25.512 Pain in left shoulder (principal); Z98.890 Other specified postprocedural states | CPT/HCPCS: 97110; 97140 ==

== ENCOUNTER 2024-09-19 14:10 | Outpatient (OUT) | payer MEDICARE, SELFPAY ==
--- NOTE | 2024-09-19 14:38 | P.CN_ITS ---
Consult Note: HPI Data of Consult Requesting Physician: Veronique Yu NP Primary Care Provider: John Mcdaniels DO Consult Narrative Reason for consult: f/u Narrative: Radha garland pleasant 64 year old female presents for evaluation of chronic pain. longstanding hx of chronic neck pain, shoulder pain, low back and bilateral hip pain. Hx of C3-7 fusion, previously found benefit to RFAs and ESIs. has failed to benefit from > 6 weeks of PT and provider guided HEP, heat, ice, tylenol, and NSAIDs. currently utilizing pregabalin 150mg BID, tizanidine 4mg TID PRN pain/spasms, and hydrocodone-acetaminophen BID-TID PRN moderate to severe pain. Pain today 4/10 in bilateral shoulders and hips, increasing to 10/10 with standing, walking, ROM, lifting, activity. denies falls or injury. following with orthopedic surgery for evaluation of left shoulder, pending MRI. cc:: CC: Veronique Yu NP Review of Systems ROS Status of ROS 10 or more systems reviewed and unremark able except as noted in history and below Musculoskeletal Reports: back pain, neck pain and joint pain PFSH PFSH Social History Little interest or pleasure in doing things: not at all Feeling down, depressed, or hopeless: not at all Meds Home Medications and Allergies Home Medications ?Medication ?Instructions ?Recorded ?Confirmed ?Type bupropion HCl 150 mg tablet,12 hr 150 mg PO DAILY 12/15/22 12/15/22 History sustained-release (Wellbutrin SR) calcium PO .qd 12/15/22 History citalopram 20 mg tablet (Celexa) 20 mg PO DAILY 12/15/22 12/15/22 History leflunomide 10 mg tablet (Arava) 10 mg PO DAILY 12/15/22 12/15/22 History lisinopril 5 mg tablet 5 mg PO DAILY 12/15/22 12/15/22 History metoprolol succinate 25 mg 25 mg PO DAILY 12/15/22 12/15/22 History tablet,extended release 24 hr (Toprol XL) upadacitinib 15 mg tablet,extended 15 mg PO DAILY 12/15/22 12/15/22 History release 24 hr (Rinvoq) tizanidine 4 mg tablet (Zanaflex) See Rx Instructions .Route 11/24/23 Rx .COMPLEX PRN muscle spasticity #360 tabs hydrocodone 5 mg-acetaminophen 325 1 tab PO TID PRN pain #90 tabs 01/25/24 Rx mg tablet bacitracin 500 unit/gram topical 1 applic topical Q12H #14 grams 04/21/24 Rx ointment pregabalin 150 mg capsule (Lyrica) 150 mg PO TID #270 caps 06/26/24 Rx hydrocodone 5 mg-acetaminophen 325 1 tab PO TID PRN pain #90 tabs 07/23/24 Rx mg tablet hydrocodone 5 mg-acetaminophen 325 See Rx Instructions .Route 08/20/24 Rx mg tablet .COMPLEX PRN pain #80 tabs Allergies Allergy/AdvReac Type Severity Reaction Status Date / Time No Known Drug Allergies Allergy Verified 12/15/22 09:27 Exam Constitutional Documenting provider has reviewed patient's vital signs: yes Common normals: no apparent distress, oriented x3, healthy appearing, alert and well nourished General appearance: cooperative HENMT Common normals: normocephalic, hearing grossly normal bilaterally and moist oral mucous membranes Head and scalp: normocephalic Eye Common normals: PERRL Pupil: PERRL Neck & C-Spine Common normals: full ROM General: normal visual inspection Other: negative spurlings Chest Common normals: inspection of chest normal Respiratory Common normals: normal respiratory effort, no retractions and no use of accessory muscles Back & Pelvis Lumbar spine/lower back: pain with ROM and lumbar spinal tenderness Sacroiliac joints: SI joint(s) abnormal Other: bilateral sij positive parth(patricks), gaenslens, thigh thrust, compression test Extremity Right upper extremity: shoulder joint Left upper extremity: shoulder joint Right lower extremity: hip joint Left lower extremity: hip joint Other: increased pain and dysthesia over bilateral suprascapular and axillary nerves unable to perform posterior liftoff and apleys scratch test, bilaterally positive empty can mild pain with external rotation of bilateral hips, no significant pain with internal rotation Neuro Common normals: oriented x3, CN's II-XII intact bilaterally, moves all extremities, no focal motor deficits, no sensory deficits noted and deep tendon reflexes 2+ bilaterally Sensorium/orientation: alert Motor exam: strength 5/5 throughout and no movement abnormalities noted Psych Common normals: mental status grossly normal, thought process normal, cooperative, affect normal, speech normal and activity/motor behavior normal Speech: normal speech Thought process: normal thought process Assessment and Plan Assessment and Plan (1) Sacroiliitis: (2) Myofascial pain: (3) Chronic pain of both shoulders: (4) Chronic prescription opiate use: Assessment and Plan: I feel these medications are improving the patient's quality of life and allow them to tolerate activities of daily living as well as participate in recreational activity.? The patient does not report intolerable side effects. The patient is NOT opioid naive and non-pharmacologic and non-opioid treatment has failed to significantly relieve the patient's pain and improve functionality. The patient has a diagnosis that is related to a somatic or visceral pain etiology. ? ?? I reviewed with the patient the potential risks and side effects with the use of? opioid medications including but not limited to respiratory depression,? sedation, and even . Within the last 12 months I have verified the patient has access to naloxone should? these effects occur. The patient was advised to let? their family know they had Naloxone in case they would need to administer? the medication. I advised the patient to avoid the use of any other? sedation substances including alcohol, THC, and benzodiazepines while? taking opioid medications due to the risk of compounding side effects and? detrimental outcomes. within the last 12 months I have reviewed the [employer], pain treatment agreement and urine drug screen.? ?? A drug screen was completed within the last year, and no aberrancies were noted regarding their use of controlled substances. The patient understands they are subject to the terms and conditions of the pain contract that they have signed. ? ?? I have checked an [place] report on this patient today and there are no aberrancies noted in the prescribing history.? Plan bilateral sij injection under fluoroscopy for sacroilitis update UDS for medication monitoring continue tizanidine 4mg TID PRN pain/spasms continue lyrica 150mg TID continue hydrocodone-acetaminophen 5-325mg BID to TID PRN moderate to severe pain 80 tabs to last 30 days f/u after injection
== END 2024-09-19 14:11 | disposition home or self-care (01) ==
PROVIDERS: PCP Internal Medicine; Visit Provider Nurse Practitioner
DX: M46.1 Sacroiliitis, not elsewhere classified (principal); M79.18 Myalgia, other site; M25.511 Pain in right shoulder; M25.512 Pain in left shoulder; Z79.891 Long term (current) use of opiate analgesic
CPT/HCPCS: G0463

== ENCOUNTER 2024-10-08 06:29 | Day surgery (SDC) | payer MEDICARE, SELFPAY ==
--- OUTSIDE RECORDS SUMMARY | 2024-10-08 06:33 | XMS_ITS | CCD ---
Author Organization [facility] Care Team Providers Care Leader Writer Name Role Phone BASIM, BARRY H. Unavailable Unavailable BASIM, BARRY H. Unavailable Unavailable BALL, JOHN E Unavailable Unavailable BASIM, BARRY H. Unavailable Unavailable BALL, JOHN E Unavailable Unavailable EBRAHEIM, MARYURI Attending Unavailable EBRAHEIM, MARYURI Admitting Unavailable SYMONE, JOHN Referring Unavailable SYMONE, JOHN Primary Care Unavailable EBRAHEIM, MARYURI Surgeon Unavailable MS Procedure Practitioner Unavailab le MS Procedure Practitioner Unavailab TASH Chery Surgeon Unavailable [...] Unavailable BALL, DR LOPEZ Primary Care Unavailable AMSO ., DR SO Estrada Attending Unavailable BALL, DR LOPEZ Primary Care Unavailable AMOS ., DR SO Estrada Attending Unavailable AMOS ., DR OS Estrada Admitting Unavailable AMOS ., DR SO Estrada Consulting Unavailable BALL, DR LOPEZ Primary Care Unavailable AMOS ., DR SO Estrada Attending Unavailable AMOS ., DR SO Estrada Admitting Unavailable AMOS ., DR SO Estrada Consulting Unavailable OLIVAS ., JACQUIE Consulting Unavailable LAKSHMIPATHY ., NARENDRANATH Admitting Amy vailable LAKSHMIPATHY ., NARRORO Consulting [...] FLOREZ, DR JOHNSON Consulting Unavailable LAKSHMIPATHY ., NARENDRANATH Admitting Amy vailable LAKSHMIPATHY ., NICOLE Attending Amy vailable SYMONE, DR LOPEZ Primary Care Unavailable VANDANA YUAN Consulting Unavailable LAKSHMIPATHY ., NARENDALEKS Consulting Amy vailable JOHN ASHBY Primary Care Physician Cesia Artis Unavailable Unavailable John Ashby MD Primary Care Provider CAROLINA ZHONG Attending Unavailable Kate Scruggs Unavailable Unavailable Brown, Jordan A Referring Unavailable [...] Attending Unavailable Brown, Jordan A Admitting Unavailable BROWN, JORDAN A Attending Unavailable BROWN, [...] Date of Onset Reaction(s) Facility (1 source) 13057,00; Translations: [Unknown] Propensity to adverse reactions (disorder) 2 [facility] Repository (20 sources) Cephalexin Drug Allergy 8 GI intolerance [facility] Work Phone: (7 sources) patient allergy list reviewed by nurse or physicia Propensity to adverse reactions 4 Comment:Done [employer] Other Medications Current Medications Medication Drug Class(es) Dates Sig (Normalized) Sig (Original) acetaminophen 500 mg oral tablet (8 sources) Start: 05-22-2024 take 1 tablet by mouth every four hours for pain acetaminophen (Tylenol Extra Strength) 500 MG tablet Indications: Status post shoulder surgery Take 1 tablet (500 mg) by mouth every 4 (four) hours if needed for mild pain 40 tablet 05/22/2024 Active acetaminophen 325 mg / HYDROcodone bitartrate 5 mg oral tablet (19 sources) Opioid Agonist Start: 09-25-2024 take 1 tablet by mouth every twelve hours as needed Hydrocodone-Acetami nophen 5-325 mg tablet Active 1 TAB PO Every 12 hours as needed September 25, 2024 12:00am Start: 05-08-2024 End: 05-15-2024 take 1-2 tablets by mouth every four hours HYDROcodone-acetaminophen (Wall) 5-325 MG tablet Indications: Status post shoulder [...] 03/19/24 Status: Ordered Start: 06-30-2023 HYDROcodone-ac etaminophen (Wall) 5-325 MG tablet 06/30/2023 Active Start: 06-30-2023 take 1 tablet by anne th three times daily as needed HYDROcodone-acetaminophen (Wall) 5-325 MG tablet TAKE 1 TABLET BY MOUTH 3 TIMES A DAY NEEDED FOR PAIN*MUS LAST 30 DAYS 06/30/2023 Active acetaminophen 325 mg / oxyCODONE hydrochloride 5 mg oral tablet (20 sources) Opioid Agonist Start: 04-27-2024 Percocet 5 mg- 325 mg oral tablet See Instructions, 40 tab(s), Refill(s) 0, 1-2 tab(s) Oral q4hr, [facility]/pharmacy #[id number], 165, cm, 03/19/24 13:53:00 EDT, Height/Length Dosing, 65, kg, 03/19/24 13:53:00 EDT, Weight Dosing Start Date: 04/27/24 Status: Ordered Start: 04-06-2023 Percocet 5 mg- 325 mg oral tablet See Instructions, 40 tab(s), Refill(s) 0, 1-2 tab(s) Oral q4hr, [facility]/pharmacy #[id number], 160, cm, 03/25/23 6:16:00 EDT, Height/Length Dosing, 73.5, kg, 03/25/23 6:16:00 EDT, Weight Dosing Start Date: 04/06/23 Status: Ordered Start: 06-30-2018 End: 09-27-2023 take 1 tablet by mouth three times daily Oxycodone-Acetaminophen 5-325 mg Tablet Discontinued 1 TAB PO Three times daily June 30, 2018 1:00am September 27, 2023 2:54pm End: 09-18-2024 take 1-2 tablets by mouth every six hours oxyCODONE-acetaminophen (Percocet) 5-325 MG tablet TAKE 1-2 TABLETS BY MOUTH EVERY 6 HOURS 09/18/2024 Discontinued 24 hr buPROPion hydrochlorid e 300 mg [...] hr Discontinued 300 MG PO Daily September 22, 2023 12:00am September 22, 2023 12:31pm take 1 tablet by anne twice daily [...] pain, # 60 cap(s), Refills(s) 0, Pharmacy: [facility]/pharmacy #[id number], 165, cm, 03/19/24 13:53:00 EDT, Height/Length Dosing, 65, kg, 03/19/24 13:53:00 EDT, Weight Dosing Start Date: 04/27/24 Status: Ordered Start: 04-06-2023 take 1 capsule by mo [facility] twice daily as needed for pain CeleBREX 100 mg Cap 100 mg = 1 cap(s), Oral, BID, PRN for pain, # 60 cap(s), Refills(s) 0, [id number] 160, cm, 03/25/23 6:16:00 EDT, Height/Length Dosing, 73.5, kg, 03/25/23 6:16:00 EDT, Weight Dosing Start Date: 04/06/23 Status: Ordered cephalexin 500 mg oral capsule (1 source) Cephalosporin Antibacterial Start: 04-06-2023 End: 04-13-2023 take 1 capsule by mouth every eight hours Keflex 500 mg Cap 500 mg = 1 cap(s), Oral, q8hr, X 7 day(s), # 21 cap(s), Refills(s) 0, [id number], 160, cm, 03/25/23 6:16:00 EDT, Height/Length Dosing, 73.5, kg, 03/25/23 6:16:00 EDT, Weight Dosing Start Date: 04/06/23 Stop Date: 04/13/23 Status: Ordered Citalopram (20 sources) Serotonin Reuptake Inhibitor Start: 07-24-2024 Citalopram 10 mg tablet Active 0 .ROUTE .COMPLEX July 24, 2024 8:42am TAKE 1 TABLET DAILY Start: 07-24-2024 Citalopram 10 mg tablet Active 0 .ROUTE .COMPLEX July 24, 2024 7:42am TAKE 1 TABLET DAILY Start: 01-26-2024 End: 07-24-2024 Citalopram 10 mg tablet Disc ontinued 0 .ROUTE .COMPLEX January 26, 2024 8:54am July 24, 2024 8:42am TAKE 1 TABLET DAILY Start: 01-26-2024 End: 07-24-2024 Citalopram 10 mg tablet Disc ontinued 0 .ROUTE .COMPLEX January 26, 2024 7:54am July 24, 2024 7:42am TAKE 1 TABLET DAILY Start: 01-26-2024 Citalopram Act hal 0 .ROUTE .COMPLEX January 26, 2024 8:54am TAKE 1 TABLET DAILY Start: 08-17-2023 End: 01-26-2024 citalopram (CeleXA) 10 MG ta blet 08/17/2023 Active Start: 06-30-2018 End: 09-27-2023 take 1 tablet by mouth once daily Citalopram 20 mg Tablet Discontinued 20 MG PO Daily June 30, 2018 1:00am September 27, 2023 2:50pm [facility] Citalopram Hydrobromide 10 MG 1 tablet Orally Once a day Active docusate sodium 100 mg oral capsule (3 sources) Start: 04-27-2024 take 1 capsule by [facility] twice daily as needed for constipation Colace 100 mg Cap 100 mg = 1 cap(s), Oral, BID, PRN for constipation, # 20 cap(s), Refills(s) 0, Pharmacy: [facility]/pharmacy #[id number], 165, cm, 03/19/24 13:53:00 EDT, Height/Length Dosing, 65, kg, 03/19/24 13:53:00 EDT, Weight Dosing Start Date: 04/27/24 Status: Ordered Start: 04-06-2023 take 1 capsule by [facility] twice daily as needed for constipation Colace 100 mg Cap 100 mg = 1 cap(s), Oral, BID, PRN for constipation, # 20 cap(s), Refills(s) 0, Pharmacy: [facility]/pharmacy #[id number], 160, cm, 03/25/23 6:16:00 EDT, Height/Length Dosing, 73.5, kg, 03/25/23 6:16:00 EDT, Weight Dosing Start Date: 04/06/23 Status: Ordered leflunomide 10 mg oral tablet (20 sources) Antirheumatic Agent Start: 06-30-2018 End: 09-27-2023 take 1 tablet by mouth once daily Leflunomide (Arava) 10 mg tablet Active 10 MG PO Daily September 27, 2023 12:00am lidocaine 0.05 mg/mg medicated patch (6 sources) Antiarrhythmic, Amide Local Anesthetic Start: 06-13-2024 End: 12-10-2024 apply 1 dose transdermal route every twelve hours, then apply 1 dose transdermal route every twelve hours lidocaine (Lidoderm) 5 % patch Indications: Bilateral shoulder pain, unspecified chronicity Apply 1 patch over 12 hours topically Daily Remove & discard patch within 12 hours or as directed by . 30 patch 5 06/13/2024 12/10/2024 Active 24 hr metoprolol succinate 100 mg extended release oral tablet (20 sources) beta-Adrenergic Lisandra Start: 09-27-2023 take 1 tablet by mouth once daily Metoprolol Succinate 100 mg tablet extended release 24 hr Active 100 MG PO Daily September 27, [...] Date: 04/06/23 Status: Ordered Omeprazole 40 mg capsule,del ayed release(DR/EC) (2 sources) Start: 06-04-2024 Omeprazole 40 mg capsule,delayed release(DR/EC) Active 0 .ROUTE .COMPLEX June 04, 2024 8:00am TAKE 1 CAPSULE ONCE DAILY ON AN EMPTY STOMACH FOLLOWED IN 30 MINUTES BY BREAKFAST Start: 06-04-2024 Omeprazole 40 mg capsule,delayed release(DR/EC) Active 0 .ROUTE .COMPLEX June 04, 2024 7:00am TAKE 1 CAPSULE ONCE DAILY ON AN EMPTY STOMACH FOLLOWED IN 30 MINUTES BY BREAKFAST ondansetron 4 mg disintegrating oral tablet (4 sources) Serotonin-3 Receptor Antagonist Start: 04-13-2024 take 1 tablet by mouth every eight hours as needed for nausea and vomiting Ondansetron 4 mg tablet,disintegrating Active 4 MG PO Every 8 hours as needed for nausea and vomiting April 13, 2024 12:00am pregabalin 150 mg oral capsule (20 sources) Start: 03-24-2023 pregabalin (Lyrica) 150 MG capsule 03/31/2023 Active Start: 06-30-2018 End: 09-27-2023 take 1 capsule by mouth three times daily Pregabalin (Lyrica) 75 mg Capsule Discontinued 75 MG PO Three times daily June 30, 2018 1:00am September 27, 2023 2:54pm Semaglutide (1 source) Start: 04-17-2024 inject 2 mg by subcutaneous injection every week Semaglutide Active 2 MG SUBCUT every week 3 April 17, 2024 12:00am Semaglutide 2 mg/dose (8 mg/3 mL) pen injector (2 sources) Start: 04-17-2024 inject 2 mg by subcutaneous injection every week Semaglutide 2 mg/dose (8 mg/3 mL) pen injector Active 2 MG SUBCUT every week 3 April 17, 2024 12:00am Start: 04-17-2024 inject 2 mg by subcu taneous injection every week Semaglutide 2 mg/dose (8 mg/3 mL) pen injector Active 2 MG SUBCUT every week 3 April 16, 2024 11:00pm tiZANidine 4 mg oral capsule (20 sources) Central alpha-2 Adrenergic Agonist Start: 09-25-2024 take 1 capsule by mouth four times daily Tizanidine 4 mg capsule Active 4 MG PO Four times daily September 25, 2024 10:36am Start: 09-27-2023 End: 09-25-2024 take 1 capsule by mouth every six hours Tizanidine 4 mg capsule Discontinued 4 MG PO Every 6 hours September 27, 2023 2:53pm September 25, 2024 10:38am Start: 03-24-2023 take 1 tablet by anne [...] 2023 2:54pm take 1 capsule by mo uth every six hours tiZANidine HCl 4 MG 1 tablet as needed Oral every 6 hours for 30 Active 24 hr upadacitinib 15 mg extended release oral tablet (20 sources) Start: 03-24-2023 take 1 tablet by mouth once daily Upadacitinib 15 mg tablet extended release 24 hr Active 15 MG PO Daily September 27, 2023 12:00am Completed/Discontinued Medications Medication Drug Class(es) Dates Sig (Normalized) Sig (Original) alendronic acid 70 mg oral tablet (10 sources) Bisphosphonate Start: 06-30-2018 End: 09-27-2023 take 1 tablet by mouth every week Alendronate (Fosamax) 70 mg Tablet Discontinued 70 MG PO every week June 30, 2018 1:00am September 27, 2023 2:54pm aspirin 81 mg delayed release oral tablet (20 sources) Platelet Aggregation Inhibitor, Nonsteroidal Anti-inflammatory Drug Start: 06-30-2018 End: 09-18-2024 take 1 tablet by mouth once daily Aspirin 81 mg Tablet,Delayed Release (Dr/Ec) Discontinued 81 MG PO Daily June 30, 2018 1:00am September 27, 2023 2:48pm betamethasone 3 mg/ml / betamethasone acetate 3 [...] hydrochloride 360 mg extended release oral tablet (10 sources) Calcium Channel Lisandra Start: 06-30-2018 End: 09-27-2023 take 1 tablet by mouth once daily Diltiazem Hcl 360 mg Tablet Extended Release 24 Hr Discontinued 360 MG PO Daily June 30, 2018 1:00am September 27, 2023 2:50pm doxycycline hyclate 100 mg oral capsule (20 sources) Tetracycline-c lass Drug Start: 09-27-2023 End: 09-28-2023 take 1 capsule by mouth twice daily Doxycycline Hyclate 100 mg capsule Discontinued 100 MG PO Twice daily September 27, 2023 12:00am September 28, 2023 3:15pm Start: 06-28-2023 take 1 capsule by [facility] every twelve hours Doxycycline Hyclate 100 MG 1 capsule Orally Twice a day for 5 days Jun, Active Start: 07-06-2018 End: 09-27-2023 take 1 tablet by mouth twice daily Doxycycline Hyclate 100 mg tablet Discontinued 100 MG PO Twice daily 10 July 06, 2018 1:00am September 27, 2023 2:50pm ibuprofen 800 mg oral tablet (10 sources) Nonsteroidal Anti-inflammatory Drug Start: 07-06-2018 End: 09-27-2023 take 1 tablet by mouth three times daily Ibuprofen 800 mg tablet Discontinued 800 MG PO Three times daily 60 July 06, 2018 1:00am September 27, 2023 2:50pm lisinopril 5 mg oral tablet (20 sources) Angiotensin Converting Enzyme Inhibitor Start: 09-27-2023 End: 09-25-2024 take 1 tablet by mouth once daily Lisinopril 5 mg tablet Discontinued 5 MG PO Daily September 27, 2023 12:00am September 25, 2024 10:35am Start: 04-07-2023 End: 04-07-2023 lisinopril 5 mg Tab 5 mg = 1 tab(s), Tab, Oral, Start date 04/07/23 9:00:00 AM EDT, 04/06/23 9:58:00 EDT Start Date: 04/07/23 Stop Date: 04/07/23 Status: Completed Start: 11-09-2022 End: 07-17-2024 take 1 tablet by mouth in the morning lisinopril 5 MG tablet Take 1 tablet by mouth in the morning. 01/21/2023 07/17/2024 Discontinued omeprazole 40 mg delayed release oral capsule (20 sources) Proton Pump Inhibitor Start: 09-27-2023 End: 06-04-2024 take 1 capsule by mouth once daily Omeprazole 40 mg capsule,delayed release(DR/EC) Discontinued 40 MG PO Daily September 27, 2023 12:00am June 04, 2024 8:00am phentermine hydrochloride 37.5 mg oral capsule (20 [...] Active traZODone hydrochloride 100 mg oral tablet (10 sources) Serotonin Reuptake Inhibitor Start: 06-30-2018 End: 09-27-2023 Trazodone 100 mg Tablet Discontinued 50 MG PO Daily at bedtime June 30, 2018 1:00am September 27, 2023 2:54pm Start: 06-30-2018 End: 09-27-2023 take 50 mg [...] September 28, 2023 3:15pm Start: 03-31-2023 End: 09-25-2024 Valacyclovir 1 gram tablet Discontinued 2000 MG PO Twice daily 4 July 09, 2024 1:00am September 25, 2024 10:37am take 2 tablets by mo [facility] every twelve hours valACYclovir HCl 1 GM 2 tablets Orally Twice a day Active take 2 tablets by mo [facility] every twelve hours valACYclovir HCl 1 GM [...] sources) Bradycardia 03-24-2023 Episodic Chronic kidney disease (8 sources) Chronic kidney disease; Translations: [Chronic kidney disease, unspecified] 06-22-2024 Chronic Congestive heart failure; nonhypertensive (20 sources) Chronic systolic heart failure; Translations: [Chronic systolic (congestive) heart failure] Onset: 09-05-2018 09-27-2023 Chronic Deficiency and other anemia (20 sources) Anemia; Translations: [Anemia, unspecified] 09-27-2023 Episodic Deficiency and other anemia (5 sources) Anemia, unspecified; Translations: [Anemia, unspecified] Onset: 09-17-2022 Episodic Deficiency and other anemia (4 sources) Pernicious anemia; Translations: [Vitamin B12 deficiency anemia due to intrinsic factor deficiency] 04-16-2024 Episodic Deficiency and other anemia (5 sources) Vitamin B12 deficiency anemia due to intrinsic factor deficiency; Translations: [Pernicious anemia] 04-17-2024 Episodic Disorders of lipid metabolism (4 sources) Mixed hyperlipidemia; Translations: [Hypercholesterolemia ] Onset: 11-04-2023 Chronic Essential hypertension (20 sources) Essential hypertension; Translations: [Essential (primary) hypertension] Chronic Fluid and electrolyte disorders (4 sources) Dehydration; Translations: [Dehydration] Episodic Hypertension with complications and secondary hypertension (2 sources) Hypertensive renal disease; Translations: [Hypertensive chronic kidney disease with stage 1 through stage 4 chronic kidney disease, or unspecified chronic kidney disease] 09-25-2024 Chronic Immunity disorders (5 sources) Immunosuppression; Translations: [Immunodeficiency, unspecified] Chronic Immunizations and screening for infectious disease (9 sources) Contact with and (suspected) exposure to other viral communicable diseases; Translations: [Contact with and (suspected) exposure to COVID-19] Episodic Intestinal infection (16 sources) Infectious colitis, enteritis and gastroenteritis; Translations: [Infectious gastroenteritis and colitis, unspecified] 09-27-2023 Episodic Malaise and fatigue (18 sources) Fatigue; Translations: [Other fatigue] 09-27-2023 Episodic [...] monitoring] Episodic Other aftercare (3 sources) Other terminal operator (current) drug therapy; Translations: [Long-term (current) use of other medications] Onset: 09-17-2022 04-17-2024 Episodic Other aftercare (8 sources) Therapeutic drug level - finding; Translations: [Encounter for therapeutic drug level monitoring] Episodic Other aftercare (2 sources) Encounter for therapeutic drug level monitoring; Translations: [Encounter for therapeutic drug level monitoring] Episodic Other aftercare (4 sources) Drug therapy finding; Translations: [Other half-way (current) drug therapy] 04-17-2024 Episodic Other circulatory [...] conditions (not mental disorders or infectious disease) (10 sources) Encounter for screening mammogram for malignant neoplasm of breast; Translations: [Patient encounter status] Onset: 2022 Episodic Ame-; endo-; and myocarditis; cardiomyopathy (except that caused [...] postprocedural states] 11-15-2023 Episodic Residual codes; unclassified (4 sources) History of arthroscopic procedure on shoulder; [...] Test Name Value Interpretation Reference Range [facility] Should[facility] w/o Contrast Left Exam Date/Time: 09/28/2024 18:24 EDT Reason for Exam: M25.512, Z98.890 Report IMPRESSION: FULL-THICKNESS TEAR OF DISTAL SUPRASPINOUS TENDON. MILD ATROPHY AND INFILTRATION OF SUPRASPINATUS MUSCLE. NEAR FULL-THICKNESS TEAR OF MID FIBERS OF SUBSCAPULARIS TENDON DETAILED. LOW-GRADE INTRASUBSTANCE TEAR ALONG THE MYOTENDINOUS JUNCTION OF INFRASPINATUS. FULL-THICKNESS TEAR OF THE LONG HEAD BICEPS TENDON. DIFFUSE LABRAL DEGENERATION/TEARING. EXAM: MRI Shoulder w/o Contrast Left HISTORY: Shoulder pain and limited range of motion. History of biceps repair 6 months ago. TECHNIQUE: Multiplanar multisequence MRI of the shoulder was performed without contrast. COMPARISON: None available. FINDINGS: Mild degenerative changes of the acromial clavicular joint without undersurface osteophyte formation. The acromion is slightly curved. Os acromiale. Coracoclavicular ligament intact. Moderate amount of subacromial/subdeltoid bursal fluid. Postsurgical changes of rotator cuff repair. Full-thickness tear of distal supraspinatus tendon with retraction of torn fibers to the level of the glenohumeral joint. Low-grade intrasubstance tear along the myotendinous junction of infraspinatus. There are full-thickness tear of mid fibers of subscapularis tendon at the level of the glenoid. Teres minor tendon is intact. Mild atrophy and fatty infiltration of supraspinatus muscle. High riding humeral head. Nonspecific edema within the humeral head without evidence fracture. Posterior changes of biceps tenodesis. Full-thickness tear of the long head biceps tendon. Diffuse labral degeneration/tearing. No well-defined or measurable cartilage defect. Moderate glenohumeral joint effusion with areas of synovitis and/or tiny loose bodies within the axillary recess. Report Ordering Provider: Jordan Yuan FINAL REPORT Dictated: 09/30/2024 9:41 am Gigi Suazo DO Signed (Electronic Signature): 09/30/2024 9:41 am Signed by: Gigi Suazo DO Transcribed by: DANISHA Technologist: TED [facility] Basophils Auto (Bld) [#/Vol] on 08-31-2024 Basophils (Bld) [#/Vol] Automated basophil count 0.0-0.1 [facility] Basophils/100 WBC Auto (Bld) on 08-31-2024 Basophils/100 WBC (Bld) Automated basophil % 0.2-2.0 [facility] Cholesterol in LDL Calc [Mas s/Vol]on 08-31-2024 Cholesterol in LDL [Mass/Vol] Cholesterol in LDL [Mass/volume] in Serum or Plasma by calculation [facility] Comment on above: <100 mg/dl [id number] 0-129 mg/dl NEAR OR ABOVE [id number] mg/dl BORDERLINE [id number] mg/dl HIGH>190 mg/dl VERY HIGH Cholesterol in VLDL Calc [Ma ss/Vol]on 08-31-2024 Cholesterol in VLDL [Mass/Vol] Cholesterol in VLDL [Mass/volume] in Serum or Plasma by calculation [facility] Eosinophils/100 WBC Auto (Bl d)on 08-31-2024 Eosinophils/100 WBC (Bld) Automated eosinophil % 0.9-7.0 [facility] Erythrocyte distribution wid th Auto (RBC) [Ratio]on 08-31-2024 Erythrocyte distribution width (RBC) [Ratio] Erythrocyte distribution width [Ratio] by Automated count High 11.0-15.0 [facility] Estimated glomerular filtrat ion rate (GFR) non- Americanon 08-31-2024 GFR/1.73 sq M.predicted among non-blacks MDRD (S/P/Bld) [Vol rate/Area] Estimated glomerular filtration rate (GFR) non- Low >=60 mL/min/1.[address] [facility] Globulin Calc (S) [Mass/Vol] on 08-31-2024 Globulin (S) [Mass/Vol] Serum globulin measurement by calculation (mass/volume) [facility] Hematocrit Auto (Bld) [Volum e fraction]on 08-31-2024 Hematocrit (Bld) [Volume fraction] Hematocrit [Volume Fraction] of Blood by Automated count Low 36.0-48.0 [facility] Hemoglobin [Mass/volume] in Bloodon 08-31-2024 Hemoglobin (Bld) [Mass/Vol] Hemoglobin [Mass/volume] in Blood Low 12.0-16.0 [facility] Laboratory - Chemistry and C hemistry - challengeon 08-31-2024 Albumin [Mass/Vol] 3.8 g/dL 3.4-5.0 [facility] ALP [Catalytic activity/Vol] 60 U/L 46-116 [facility] ALT [Catalytic activity/Vol] 15 U/L 14-59 [facility] AST [Catalytic activity/Vol] 9 U/L Low 15-37 [facility] Bilirubin [Mass/Vol] 0.5 mg/dL 0.2-1.0 [facility] Calcium [Mass/Vol] 9.2 mg/dL 8.5-10.1 [facility] Chloride [Moles/Vol] 107 mmol/L 98-107 [facility] Cholesterol [Mass/Vol] 196 mg/dL <=200 [facility] Cholesterol in HDL [Mass/Vol] 68 mg/dL High 40-60 [facility] Comment on above: > or =60 mg/dl - LOW CARDIOVASCULAR RISK<40 mg/dl - HIGH CARDIOVASCULAR RISK CO2 [Moles/Vol] 26.9 mmol/L 21.0-32.0 [facility] Creatinine [Mass/Vol] 1.29 mg/dL High 0.55-1.02 [facility] GFR/1.73 sq M.predicted MDRD (S/P/Bld) [Vol rate/Area] 50 mL/min/{1.73_m2} Low >=60 mL/min/1.[address] [facility] Glucose [Mass/Vol] 72 mg/dL Low 74-106 [facility] Potassium [Moles/Vol] 4.3 mmol/L 3.5-5.1 [facility] Protein [Mass/Vol] 7.0 g/dL 6.4-8.2 [facility] Sodium [Moles/Vol] 143 mmol/L 136-145 [facility] Triglyceride [Mass/Vol] 66 mg/dL <=150 [facility] TSH Qn 1.339 m[IU]/L 0.358-3.740 [facility] Urea nitrogen [Mass/Vol] 20.0 mg/dL High 7.0-18.0 [facility] Urea nitrogen/Creatinine [Mass ratio] 15.5 mg/mg [facility] Laboratory - Hematology and Cell countson 08-31-2024 Immature granulocytes/100 WBC (Bld) 0.4 % 0.0-0.5 [facility] Leukocytes [#/volume] correc fito for nucleated erythrocytes in Blood by Automated counon 08-31-2024 WBC corrected for nucl RBC Auto (Bld) [#/Vol] Leukocytes [#/volume] corrected for nucleated erythrocytes in Blood by Automated coun 4.0-11.0 [facility] Lymphocytes Auto (Bld) [#/Vo l]on 08-31-2024 Lymphocytes (Bld) [#/Vol] Lymphocytes [#/volume] in Blood by Automated count 1.2-3.8 [facility] Lymphocytes/100 WBC Auto (Bl d)on 08-31-2024 Lymphocytes/100 WBC (Bld) Lymphocytes/100 leukocytes in Blood by Automated count 20.5-60.0 [facility] MCH Auto (RBC) [Entitic mass ]on 08-31-2024 MCH (RBC) [Entitic mass] MCH [Entitic mass] by Automated count 26.7-34.0 [facility] MCHC Auto (RBC) [Mass/Vol]on 08-31-2024 MCHC (RBC) [Mass/Vol] MCHC [Mass/volume] by Automated count 29.9-35.2 [facility] MCV Auto (RBC) [Entitic vol] on 08-31-2024 MCV (RBC) [Entitic vol] MCV [Entitic volume] by Automated count High 81.0-99.0 [facility] Microalbumin [Mass/volume] i n Urineon 08-31-2024 Albumin DL <= 20 mg/L (U) [Mass/Vol] Microalbumin [Mass/volume] in Urine <=30.0 [facility] Monocytes Auto (Bld) [#/Vol] on 08-31-2024 Monocytes (Bld) [#/Vol] Automated blood monocyte count 0.3-0.8 [facility] Monocytes/100 WBC Auto (Bld) on 08-31-2024 Monocytes/100 WBC (Bld) Automated monocyte % 1.7-12.0 [facility] Neutrophils Auto (Bld) [#/Vo l]on 08-31-2024 Neutrophils (Bld) [#/Vol] Neutrophils [#/volume] in Blood by Automated count 1.4-6.5 [facility] Neutrophils/100 WBC Auto (Bl d)on 08-31-2024 Neutrophils/100 WBC (Bld) Automated neutrophil % 43.0-75.0 [facility] No Panel Informationon 08-31 Eosinophils # (Auto) 0.2 10 3/uL 0.0-0.7 [facility] Immature Granulocyte # (Auto) 0.02 10 3/uL 0.00-0.03 [facility] Urine Random Creatinine 176.19 mg/dL 20.00-300.[address] [facility] Platelet mean volume Auto (B ld) [Entitic vol]on 08-31-2024 Platelet mean volume (Bld) [Entitic vol] Platelet mean volume [Entitic volume] in Blood by Automated count Low 9.5-13.5 [facility] Platelets Auto (Bld) [#/Vol] on 08-31-2024 Platelets (Bld) [#/Vol] Platelets [#/volume] in Blood by Automated count 150-450 [facility] RBC Auto (Bld) [#/Vol]on RBC (Bld) [#/Vol] Erythrocytes [#/volu me] in Blood by Automated count Low 4.20-5.40 [facility] Serum or plasma albumin/glob ulin mass ratioon 08-31-2024 Albumin/Globulin [Mass ratio] Serum or plasma albumin/globulin mass ratio [facility] Serum or plasma anion gap de terminationon 08-31-2024 Anion gap [Moles/Vol] Serum or plasma anion gap determination [facility] Serum or plasma total choles terol/high density lipoprotein (HDL) cholesterol mass albina 08-31-2024 Cholesterol.total/C holesterol in HDL [Mass ratio] Serum or plasma total cholesterol/high density lipoprotein (HDL) cholesterol mass rat [facility] Comment on above: 3.3 - 4.4 LOW RISK4. 4 - 7.1 AVERAGE RISK7.1 - 11.0 MODERATE RISK>11.0 HIGH RISK Urine microalbumin/creatinin e mass ratioon 08-31-2024 Albumin/Creatinine DL <= 20 mg/L (U) [Mass ratio] Urine microalbumin/creatinine mass ratio 0.0-29.9 [facility] Comment on above: NO MICROALBUMINURIA 0-29 MG/GCLINICAL MICROALBUMINURIA 30-300 MG/GMACROALBUMINURIA >300 MG/G Basophils Auto (Bld) [#/Vol] on 06-21-2024 Basophils (Bld) [#/Vol] Automated basophil count 0.0-0.1 [facility] Basophils/100 WBC Auto (Bld) on 06-21-2024 Basophils/100 WBC (Bld) Automated basophil % 0.2-2.0 [facility] Eosinophils/100 WBC Auto (Bl d)on 06-21-2024 Eosinophils/100 WBC (Bld) Automated eosinophil % 0.9-7.0 [facility] Erythrocyte distribution wid th Auto (RBC) [Ratio]on 06-21-2024 Erythrocyte distribution width (RBC) [Ratio] Erythrocyte distribution width [Ratio] by Automated count 11.0-15.0 [facility] Estimated glomerular filtrat ion rate (GFR) non- Americanon 06-21-2024 GFR/1.73 sq M.predicted among non-blacks MDRD (S/P/Bld) [Vol rate/Area] Estimated glomerular filtration rate (GFR) non- Low >=60 mL/min/1.[address] [facility] Globulin Calc (S) [Mass/Vol] on 06-21-2024 Globulin (S) [Mass/Vol] Serum globulin measurement by calculation (mass/volume) [facility] Hematocrit Auto (Bld) [Volum e fraction]on 06-21-2024 Hematocrit (Bld) [Volume fraction] Hematocrit [Volume Fraction] of Blood by Automated count Low 36.0-48.0 [facility] Hemoglobin [Mass/volume] in Bloodon 06-21-2024 Hemoglobin (Bld) [Mass/Vol] Hemoglobin [Mass/volume] in Blood Low 12.0-16.0 [facility] Laboratory - Chemistry and C hemistry - challengeon 06-21-2024 Albumin [Mass/Vol] 3.8 g/dL 3.4-5.0 [facility] ALP [Catalytic activity/Vol] 48 U/L 46-116 [facility] ALT [Catalytic activity/Vol] 13 U/L Low 14-59 [facility] AST [Catalytic activity/Vol] 14 U/L Low 15-37 [facility] Bilirubin [Mass/Vol] 0.5 mg/dL 0.2-1.0 [facility] Calcium [Mass/Vol] 9.1 mg/dL 8.5-10.1 [facility] Chloride [Moles/Vol] 105 mmol/L 98-107 [facility] CO2 [Moles/Vol] 26.1 mmol/L 21.0-32.0 [facility] Creatinine [Mass/Vol] 1.43 mg/dL High 0.55-1.02 [facility] GFR/1.73 sq M.predicted MDRD (S/P/Bld) [Vol rate/Area] 45 mL/min/{1.73_m2} Low >=60 mL/min/1.[address] [facility] Glucose [Mass/Vol] 76 mg/dL 74-106 [facility] Potassium [Moles/Vol] 3.4 mmol/L Low 3.5-5.1 [facility] Protein [Mass/Vol] 6.7 g/dL 6.4-8.2 [facility] Sodium [Moles/Vol] 144 mmol/L 136-145 [facility] Urea nitrogen [Mass/Vol] 18.0 mg/dL 7.0-18.0 [facility] Urea nitrogen/Creatinine [Mass ratio] 12.6 mg/mg [facility] Laboratory - Hematology and Cell countson 06-21-2024 ESR (Bld) [Velocity] 6 mm/h <=30 [facility] Immature granulocytes/100 WBC (Bld) 0.3 % 0.0-0.5 [facility] Leukocytes [#/volume] correc fito for nucleated erythrocytes in Blood by Automated counon 06-21-2024 WBC corrected for nucl RBC Auto (Bld) [#/Vol] Leukocytes [#/volume] corrected for nucleated erythrocytes in Blood by Automated coun Low 4.0-11.0 [facility] Lymphocytes Auto (Bld) [#/Vo l]on 06-21-2024 Lymphocytes (Bld) [#/Vol] Lymphocytes [#/volume] in Blood by Automated count 1.2-3.8 [facility] Lymphocytes/100 WBC Auto (Bl d)on 06-21-2024 Lymphocytes/100 WBC (Bld) Lymphocytes/100 leukocytes in Blood by Automated count 20.5-60.0 [facility] MCH Auto (RBC) [Entitic mass ]on 06-21-2024 MCH (RBC) [Entitic mass] MCH [Entitic mass] by Automated count 26.7-34.0 [facility] MCHC Auto (RBC) [Mass/Vol]on 06-21-2024 MCHC (RBC) [Mass/Vol] MCHC [Mass/volume] by Automated count 29.9-35.2 [facility] MCV Auto (RBC) [Entitic vol] on 06-21-2024 MCV (RBC) [Entitic vol] MCV [Entitic volume] by Automated count 81.0-99.0 [facility] Monocytes Auto (Bld) [#/Vol] on 06-21-2024 Monocytes (Bld) [#/Vol] Automated blood monocyte count 0.3-0.8 [facility] Monocytes/100 WBC Auto (Bld) on 06-21-2024 Monocytes/100 WBC (Bld) Automated monocyte % 1.7-12.0 [facility] Neutrophils Auto (Bld) [#/Vo l]on 06-21-2024 Neutrophils (Bld) [#/Vol] Neutrophils [#/volume] in Blood by Automated count 1.4-6.5 [facility] Neutrophils/100 WBC Auto (Bl d)on 06-21-2024 Neutrophils/100 WBC (Bld) Automated neutrophil % Low 43.0-75.0 [facility] No Panel Informationon 06-21 Eosinophils # (Auto) 0.1 10 3/uL 0.0-0.7 [facility] Immature Granulocyte # (Auto) 0.01 10 3/uL 0.00-0.03 [facility] Platelet mean volume Auto (B ld) [Entitic vol]on 06-21-2024 Platelet mean volume (Bld) [Entitic vol] Platelet mean volume [Entitic volume] in Blood by Automated count Low 9.5-13.5 [facility] Platelets Auto (Bld) [#/Vol] on 06-21-2024 Platelets (Bld) [#/Vol] Platelets [#/volume] in Blood by Automated count 150-450 [facility] RBC Auto (Bld) [#/Vol]on RBC (Bld) [#/Vol] Erythrocytes [#/volu me] in Blood by Automated count Low 4.20-5.40 [facility] Serum or plasma albumin/glob ulin mass ratioon 06-21-2024 Albumin/Globulin [Mass ratio] Serum or plasma albumin/globulin mass ratio [facility] Serum or plasma anion gap de terminationon 06-21-2024 Anion gap [Moles/Vol] Serum or plasma anion gap determination [facility] No Panel Informationon 06-05 Kate Scruggs, LORY T 06/09/2024 1:08 PM L Inj/Asp: L glenohumeral on 06/05/2024 2:26 PM Indications: pain Details: 25 G needle, ultrasound-guided Medications: 2 mL betamethasone acetate-betamethasone sodium phosphate 6 (3-3) MG/ML Consent was given by the patient. [facility] XR Shoulder - left 2 Viewson 05-09-2024 Imaging Result: 3 views left shoulder, Grashey/Zanca/outlet, taken today and saved to the permanent medical record are reviewed. No fractures. ACI WNL [facility] XR Shoulder - left 2 Viewson 05-08-2024 Radiology Study observation (narrative) [facility] Main OR Intraoperative Recor don 04-30-2024 Main OR Intraoperative Record Main OR Intraoperative Record Normal [facility] CBC w/ Auto Diffon 4 Basophils/100 WBC (Bld) 1.3 % Normal 0.0-2.0 [facility] Comment on above: Performed By: #### 2 [id number] ####[facility] [address] [place] [address] Basophils/Leukocyte s Auto (Bld) [Pure # fraction] 0.1 E9/L Normal 0.0-0.2 [facility] Comment on above: Performed By: #### 2 [id number] ####[facility] [address] [place] [address] Eosinophils (Bld) [#/Vol] 0.2 E9/L Normal 0.0-0.5 [facility] Comment on above: Performed By: #### 2 462196 ####[facility] [address] [place] [address] Eosinophils/100 WBC (Bld) 3.7 % Normal 0.0-8.0 [facility] Comment on above: Performed By: #### 2 437763 ####[facility] [address] [place] [address] Erythrocyte distribution width (RBC) [Ratio] 15.3 % High 10.9-14.2 [facility] Comment on above: Performed By: #### 2 368589 ####[address] [address] Hematocrit (Bld) [Volume fraction] 27.7 % Low 34.0-46.0 [facility] Comment on above: Performed By: #### 2 263763 ####[address] [address] Hemoglobin (Bld) [Mass/Vol] 9.6 g/dL Low 12.0-16.0 [facility] Comment on above: Performed By: #### 2 466908 ####[address] [address] Lymphocytes (Bld) [#/Vol] 0.9 E9/L Low 1.0-4.0 [facility] Comment on above: Performed By: #### 2 586951 ####[address] [address] Lymphocytes/100 WBC (Bld) 20.4 % Normal 14.0-50.0 [facility] Comment on above: Performed By: #### 2 895742 ####[facility] [address] [place] [address] MCH (RBC) [Entitic mass] 33.7 pg Normal 27.0-34.0 [facility] Comment on above: Performed By: #### 2 433660 ####[facility] [address] [place] [address] MCHC (RBC) [Mass/Vol] 34.6 g/dL Normal 31.4-36.0 [facility] Comment on above: Performed By: #### 2 813383 ####[address] [address] MCV (RBC) [Entitic vol] 97.3 fL Normal 80.0-100.0 [facility] Comment on above: Performed By: #### 2 670712 ####[address] [address] Monocytes (Bld) [#/Vol] 0.8 E9/L Normal 0.2-1.0 [facility] Comment on above: Performed By: #### 2 259948 ####[address] [address] Neutrophils (Bld) [#/Vol] 2.4 E9/L Normal 2.0-7.5 [facility] Comment on above: Performed By: #### 2 370112 ####[address] [address] Neutrophils/100 WBC (Bld) 55.1 % Normal 36.0-75.0 [facility] Comment on above: Performed By: #### 2 528480 ####[address] [address] Platelet 213.0 E9/L Normal 150.0-500.0 [facility] Comment on above: Performed By: #### 2 638490 ####[address] [address] Platelet mean volume (Bld) [Entitic vol] 7.0 fL Normal 6.4-10.8 [facility] Comment on above: Performed By: #### 2 914564 ####[address] [address] RBC (Bld) [#/Vol] 2.9 E12/L Low 4.3-5.9 [facility] Comment on above: Performed By: #### 2 239460 ####[address] [address] WBC corrected for nucl RBC Auto (Bld) [#/Vol] 4.3 E9/L Normal 4.0-11.0 [facility] Comment on above: Result Comment: Mae pheral smear review performed. Performed By: #### 2 377395 ####[address] [place] [address] Discharge Instructionson Discharge Instructions Discharge Instructions RADHA [...] Appointment has already been scheduled Where: [address] [place] [address]- Business (1) Medications What How Much When Instructions Next Dose New acetaminophen-oxycodone (Percocet 5 mg-325 mg oral tablet) See instructions 1-2 tab(s) Oral q4hr Pickup at [facility]/pharmacy #6197 New celecoxib (CeleBREX 100 mg Cap) 1 Capsules By Mouth 2 times a day as needed for for pain Pickup at [facility]/pharmacy #6177 New docusate (Colace 100 mg Cap) 1 Capsules By Mouth 2 times a day as needed for for constipation Pickup at [facility]/pharmacy #6177 Unchanged buPROPion (Wellbutrin XL 300 mg/ [...] Tablets By Mouth Every day Pharmacy Information [facility]/pharmacy #[id number]: [address], [place] [id number] [phone] What How Much When Comments Stop Taking acetaminophen-hydrocodone (acetaminophen-hydrocodone 325 mg-5 mg oral tablet) 1 Tablets By Mouth Every 6 hours [employer] [place], [place] [facility] AFTER YOUR SHOULDER ARTHROSCOPY [...] band-aids t (more content not included)... Normal [facility] Comment on above: Result Comment: Elec [...] 04-27-2024 Inpatient Patient Summary Inpatient Patient Summary [place] [id number] [facility] Clinical Discharge Instructions PERSON INFORMATION Name: RADHA ZAIDI PHYSICIANS Admitting Physician: Jordan Yuan DO Attending Physician: Jordan Yuan DO PCP: JOHN ASHBY DO Discharge Diagnosis: Comment: PATIENT EDUCATION INFORMATION Instructions: Iris Yuan - After Your Shoulder Arthroscopy (Custom) Medication Leaflets: Follow up: MEDICATION LIST New Medications [id number], [address], [place] [id number], [phone] acetaminophen-oxycodone (Percocet 5 mg-325 mg oral tablet) [...] By Mouth every 6 hours. Comment: Normal [facility] Main OR PACU I Recordon 04-10 Main OR PACU I Record Main OR PACU I Record PACU Phase I Document Type FT Summary Primary Physician: Jordan Yuan DO Finalized Date/Time: 04/27/24 11:12:00 Pt. Name: RADHA ZAIDI/Sex: 1960 Female Med Rec #: [id number] Physician: Jordan Yuan DO Financial #: [id number] Pt. Type: A Room/Bed: [place] [address] Admit/Disch: 04/27/24 05:21:12 - Institution: Case Times [...] By: Ling Kathleen RN 04/27/24 11:12 Normal [facility] Main OR Preoperative Recordo n 04-27-2024 Main OR Preoperative Record Main OR Preoperative Record PreOp Document Type FT Summary Primary Physician: Jordan Yuan DO Finalized Date/Time: 04/27/24 09:02:45 Pt. Name: RADHA ZAIDI/Sex: 1960 Female Med Rec #: [id number] Physician: Jordan Yuan DO Financial #: [id number] Pt. Type: A Room/Bed: [place] [address] Admit/Disch: 04/27/24 05:21:12 - Institution: Case Times [...] By: Carli Gomez RN 04/27/24 09:02 Normal [facility] Operative Reporton Operative Report Operative Report Patient: RADHA ZAIDI Age: 63 years Sex: Female : 1960 Associated Diagnoses: None Author: Jordan Yuan DO DATE OF SURGERY: 04/27/2024 SURGEON: Jordan Yuan D.O. DIALYSIS EQUIPMENT TECHNICIAN: Jeff Marshall PREOPERATIVE DIAGNOSIS: Rotator cuff tear, [...] fashion. The forearm was secured in the Spider tenet pneumatic arm munoz. Landmarks were demarcated. [...] the greater tuberosity was cleared with the Lecompton wand to improve visualization. An accessory anterosuperolateral portal was made with outside in technique using spinal needle localization. A passport cannula was placed. Soft tissue was cleared from the lesser tuberosity with the Lecompton wand. A bony bleeding bed was created with the arthroscopic bur on the reverse setting. The punch was placed to the anterior portal and used to create a socket for the corkscrew anchor at the upper portion of the lesser tuberosity. The anchor was inserted. The sutures were passed using th (more content not included)... Normal [facility] Comment on above: Result Comment: Elec tronically Signed By: Jordan Yuan DO\.br\Date and Time Signed: 04/27/24 15:13 EDT Outpatient Surgery Discharge Instructionon 04-27-2024 Outpatient Surgery Discharge Instruction Outpatient Surgery Discharge Instruction [place] [address] Patient Discharge Instructions PERSON INFORMATION Name: RADHA [...] Information: You may receive a survey from [facility] asking you to rate your care experience. Your feedback is important and will help us understand what we do well and how we can improve the quality of care we provide to you, your loved ones and our community. It?s an honor to serve you. Thank you for choosing [facility] HERE ARE THE MEDICATION CHANGES THAT OCCURRED DURING YOUR HOSPITAL STAY New Medications [id number], [address], [place] [id number], [phone] acetaminophen-oxycodone (Percocet 5 mg-325 mg oral tablet) [...] every 6 hours. PATIENT EDUCATION INFORMATION Instructions: [place], [place] [facility] AFTER YOUR SHOULDER ARTHROSCOPY [...] follow up (more content not included)... Normal [facility] Proceduralon 04-27-2024 Procedural Procedural Patient: RADHA [...] lido; 22g 50mm insulated echogenic block needle [facility]; 10cc .5% bupiv and 133mg exparel [...] patient tolerated the procedure as expected. 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 Family History: Primary malignant neoplasm of prostate Father Acute myocardial infarction Mother Procedure history: Total shoulder replacement (63863648) on 04/06/2023 at 62 Years. Cervical laminectomy (6689713575). 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 Removal of lung, Partial (38138). Open reduction and internal fixation of fracture Leg (112856727). Foot surgery (8762108649). Lumbar discectomy (819120903). Social History Social & Psychosocial Habits Alcoh (more content not included)... Normal [facility] Basophils Auto (Bld) [#/Vol] on 03-27-2024 Basophils (Bld) [#/Vol] 0.0 10 3/uL 0.0-0.1 [facility] Basophils/100 WBC Auto (Bld) on 03-27-2024 Basophils/100 WBC (Bld) 0.7 % 0.2-2.0 [facility] Eosinophils/100 WBC Auto (Bl d)on 03-27-2024 Eosinophils/100 WBC (Bld) 2.0 % 0.9-7.0 [facility] Erythrocyte distribution wid th Auto (RBC) [Ratio]on 03-27-2024 Erythrocyte distribution width (RBC) [Ratio] 14.7 % 11.0-15.0 [facility] Hematocrit Auto (Bld) [Volum e fraction]on 03-27-2024 Hematocrit (Bld) [Volume fraction] 30.8 % Low 36.0-48.0 [facility] Hemoglobin [Mass/volume] in Bloodon 03-27-2024 Hemoglobin (Bld) [Mass/Vol] 10.0 g/dL Low 12.0-16.0 [facility] Laboratory - Chemistry and C hemistry - challengeon 03-27-2024 Cobalamin (Vitamin B12) [Mass/Vol] 172 pg/mL Abnormal 232-4123 [facility] Comment on above: Performed at: [place] [id number] Director: Lito Matamoros PhD, Phone: [phone] Laboratory - Hematology and Cell countson 03-27-2024 Immature granulocytes/100 WBC (Bld) 0.5 % 0.0-0.5 [facility] Leukocytes [#/volume] correc fito for nucleated erythrocytes in Blood by Automated counon 03-27-2024 WBC corrected for nucl RBC Auto (Bld) [#/Vol] 4.4 10 3/uL 4.0-11.0 [facility] Lymphocytes Auto (Bld) [#/Vo l]on 03-27-2024 Lymphocytes (Bld) [#/Vol] 1.9 10 3/uL 1.2-3.8 [facility] Lymphocytes/100 WBC Auto (Bl d)on 03-27-2024 Lymphocytes/100 WBC (Bld) 42.3 % 20.5-60.0 [facility] MCH Auto (RBC) [Entitic mass ]on 03-27-2024 MCH (RBC) [Entitic mass] 31.9 pg 26.7-34.0 [facility] MCHC Auto (RBC) [Mass/Vol]on 03-27-2024 MCHC (RBC) [Mass/Vol] 32.5 g/dL 29.9-35.2 [facility] MCV Auto (RBC) [Entitic vol] on 03-27-2024 MCV (RBC) [Entitic vol] 98.4 fL 81.0-99.0 [facility] Monocytes Auto (Bld) [#/Vol] on 03-27-2024 Monocytes (Bld) [#/Vol] 0.6 10 3/uL 0.3-0.8 [facility] Monocytes/100 WBC Auto (Bld) on 03-27-2024 Monocytes/100 WBC (Bld) 12.7 % High 1.7-12.0 [facility] Neutrophils Auto (Bld) [#/Vo l]on 03-27-2024 Neutrophils (Bld) [#/Vol] 1.8 10 3/uL 1.4-6.5 [facility] Neutrophils/100 WBC Auto (Bl d)on 03-27-2024 Neutrophils/100 WBC (Bld) 41.8 % Low 43.0-75.0 [facility] No Panel Informationon 03-27 Eosinophils # (Auto) 0.1 10 3/uL 0.0-0.7 [facility] Folate 14.00 ng/mL 8.60-58.90 [facility] Immature Granulocyte # (Auto) 0.02 10 3/uL 0.00-0.03 [facility] Platelet mean volume Auto (B ld) [Entitic vol]on 03-27-2024 Platelet mean volume (Bld) [Entitic vol] 9.3 fL Low 9.5-13.5 [facility] Platelets Auto (Bld) [#/Vol] on 03-27-2024 Platelets (Bld) [#/Vol] 235 10 3/uL 150-450 [facility] RBC Auto (Bld) [#/Vol]on RBC (Bld) [#/Vol] 3.13 10 6/uL Low 4.20-5.40 [facility] Reticulocytes/100 RBC Auto ( Bld)on 03-27-2024 Reticulocytes/100 RBC (Bld) 2.37 % 0.60-3.10 [facility] Serum or plasma methylmalona te measurement (moles/volume)on 03-27-2024 Methylmalonate [Moles/Vol] 195 nmol/L 0-378 [facility] Comment on above: This test was develo ped and its performance characteristicsdetermined by [employer]. It has not been cleared orapproved by the Food and Drug Administration.Performed at: [address] [id number] Director: Goldy Aparicio MD, Phone: [phone] XR Chest 2 Viewson XR Chest 2 [...] mGy = na DAP = na Normal [facility] BMPon 03-19-2024 Anion gap [Moles/Vol] 9 mmol/L Normal 6-16 [facility] Comment on above: Performed By: #### 2 [id number] #### [facility] [address] [place] [address] Calcium [Mass/Vol] 9.1 mg/dL Normal 8.9-11.1 [facility] Comment on above: Performed By: #### 2 764316 #### [facility] [address] [place] [address] Chloride [Moles/Vol] 109 mmol/L Normal 101-111 [facility] Comment on above: Performed By: #### 2 740574 #### [facility] [address] [place] [address] CO2 [Moles/Vol] 27 mmol/L Normal 21-31 [facility] Comment on above: Performed By: #### 2 733359 #### [facility] [address] [place] [address] Creatinine [Mass/Vol] 1.1 mg/dL Normal 0.5-1.3 [facility] Comment on above: Performed By: #### 2 028424 #### [facility] [address] [place] [address] Glucose [Mass/Vol] 85 mg/dL Normal 55-199 [facility] Comment on above: Performed By: #### 2 811808 #### [facility] [address] [place] [address] Potassium [Moles/Vol] 3.8 mmol/L Normal 3.5-5.3 [facility] Comment on above: Performed By: #### 2 493385 #### [facility] [address] [place] [address] Sodium [Moles/Vol] 141 mmol/L Normal 135-145 [facility] Comment on above: Performed By: #### 2 943219 #### [facility] [address] [place] [address] Urea nitrogen [Mass/Vol] 17 mg/dL Normal 5-21 [facility] Comment on above: Performed By: #### 2 512398 #### [facility] [address] [place] [address] Urea nitrogen/Creatinine [Mass ratio] 16 No Units Normal 10-20 [facility] Comment on above: Performed By: #### 2 421857 #### [facility] [address] [place] [address] CBC w/ Auto Diffon 4 Basophils/100 WBC (Bld) 0.6 % Normal 0.0-2.0 [facility] Comment on above: Performed By: #### 2 311629 #### [facility] [address] [place] [address] Basophils/Leukocyte s Auto (Bld) [Pure # fraction] 0.0 E9/L Normal 0.0-0.2 [facility] Comment on above: Performed By: #### 2 997490 #### [facility] [address] [place] [address] Eosinophils (Bld) [#/Vol] 0.1 E9/L Normal 0.0-0.5 [facility] Comment on above: Performed By: #### 2 960122 #### [facility] [address] [place] [address] Eosinophils/100 WBC (Bld) 1.6 % Normal 0.0-8.0 [facility] Comment on above: Performed By: #### 2 196084 #### [facility] [address] [place] [address] Erythrocyte distribution width (RBC) [Ratio] 14.7 % High 10.9-14.2 [facility] Comment on above: Performed By: #### 2 675869 #### [facility] [address] [place] [address] Hematocrit (Bld) [Volume fraction] 27.9 % Low 34.0-46.0 [facility] Comment on above: Performed By: #### 2 [id number] #### [facility] [address] [place] [address] Hemoglobin (Bld) [Mass/Vol] 9.8 g/dL Low 12.0-16.0 [facility] Comment on above: Performed By: #### 2 [id number] #### [facility] [address] [place] [address] Lymphocytes (Bld) [#/Vol] 1.1 E9/L Normal 1.0-4.0 [facility] Comment on above: Performed By: #### 2 [id number] #### [facility] [address] [place] [address] Lymphocytes/100 WBC (Bld) 28.9 % Normal 14.0-50.0 [facility] Comment on above: Performed By: #### 2 972207 #### [facility] [address] [place] [address] MCH (RBC) [Entitic mass] 33.8 pg Normal 27.0-34.0 [facility] Comment on above: Performed By: #### 2 947111 #### [facility] [address] [place] [address] MCHC (RBC) [Mass/Vol] 35.1 g/dL Normal 31.4-36.0 [facility] Comment on above: Performed By: #### 2 [id number] #### [facility] [address] [place] [address] MCV (RBC) [Entitic vol] 96.2 fL Normal 80.0-100.0 [facility] Comment on above: Performed By: #### 2 [id number] #### [facility] [address] [place] [address] Monocytes (Bld) [#/Vol] 0.6 E9/L Normal 0.2-1.0 [facility] Comment on above: Performed By: #### 2 140755 #### [facility] [address] [place] [address] Neutrophils (Bld) [#/Vol] 2.0 E9/L Normal 2.0-7.5 [facility] Comment on above: Performed By: #### 2 119019 #### [facility] [address] [place] [address] Neutrophils/100 WBC (Bld) 52.8 % Normal 36.0-75.0 [facility] Comment on above: Performed By: #### 2 409923 #### [facility] [address] [place] [address] Platelet 211.0 E9/L Normal 150.0-500.0 [facility] Comment on above: Performed By: #### 2 457687 #### [facility] [address] [place] [address] Platelet mean volume (Bld) [Entitic vol] 7.0 fL Normal 6.4-10.8 [facility] Comment on above: Performed By: #### 2 037335 #### [facility] [address] [place] [address] RBC (Bld) [#/Vol] 2.9 E12/L Low 4.3-5.9 [facility] Comment on above: Performed By: #### 2 179100 #### [facility] [address] [place] [address] WBC corrected for nucl RBC Auto (Bld) [#/Vol] 3.8 E9/L Low 4.0-11.0 [facility] Comment on above: Result Comment: Mae pheral smear review performed. Performed By: #### 2 [id number] #### [facility] [address] [place] [address] CHEMISTRYOrdered By: SYSTEM SYSTEM on 03-19-2024 Anion [...] 03-19-2024 eGFR 56 mL/min/1.73 m2 Low >=59 [facility] Comment on above: Order Comment: Order added by Discern Expert. Performed By: #### 1 [id number] #### [facility] [address] [place] [address] Basophils Auto (Bld) [#/Vol] on 02-14-2024 Basophils (Bld) [#/Vol] 0.0 10 3/uL 0.0-0.1 [facility] Basophils/100 WBC Auto (Bld) on 02-14-2024 Basophils/100 WBC (Bld) 0.8 % 0.2-2.0 [facility] Eosinophils/100 WBC Auto (Bl d)on 02-14-2024 Eosinophils/100 WBC (Bld) 1.5 % 0.9-7.0 [facility] Erythrocyte distribution wid th Auto (RBC) [Ratio]on 02-14-2024 Erythrocyte distribution width (RBC) [Ratio] 15.1 % High 11.0-15.0 [facility] Hematocrit Auto (Bld) [Volum e fraction]on 02-14-2024 Hematocrit (Bld) [Volume fraction] 35.4 % Low 36.0-48.0 [facility] Hemoglobin [Mass/volume] in Bloodon 02-14-2024 Hemoglobin (Bld) [Mass/Vol] 11.0 g/dL Low 12.0-16.0 [facility] Iron binding capacity [Mass/ volume] in Serum or Plasmaon 02-14-2024 Iron binding capacity [Mass/Vol] 303.0 ug/dL 250.0-450.0 [facility] Iron saturation [Mass Fracti on] in Serum or Plasmaon 02-14-2024 Iron saturation [Mass fraction] 81.2 % [facility] - Chemistry and C hemistry - challengeon 02-14-2024 Cobalamin (Vitamin B12) [Mass/Vol] 225.0 pg/mL 193.0-986.0 [facility] Ferritin [Mass/Vol] 338.0 ng/mL High 8.0-252.0 [facility] Iron [Mass/Vol] 246.0 ug/dL High 50.0-170.0 [facility] - Hematology and Cell countson 02-14-2024 Immature granulocytes/100 WBC (Bld) 0.8 % High 0.0-0.5 [facility] Leukocytes [#/volume] correc fito for nucleated erythrocytes in Blood by Automated counon 02-14-2024 WBC corrected for nucl RBC Auto (Bld) [#/Vol] 4.7 10 3/uL 4.0-11.0 [facility] Lymphocytes Auto (Bld) [#/Vo l]on 02-14-2024 Lymphocytes (Bld) [#/Vol] 2.3 10 3/uL 1.2-3.8 [facility] Lymphocytes/100 WBC Auto (Bl d)on 02-14-2024 Lymphocytes/100 WBC (Bld) 48.7 % 20.5-60.0 [facility] MCH Auto (RBC) [Entitic mass ]on 02-14-2024 MCH (RBC) [Entitic mass] 31.9 pg 26.7-34.0 [facility] MCHC Auto (RBC) [Mass/Vol]on 02-14-2024 MCHC (RBC) [Mass/Vol] 31.1 g/dL 29.9-35.2 [facility] MCV Auto (RBC) [Entitic vol] on 02-14-2024 MCV (RBC) [Entitic vol] 102.6 fL High 81.0-99.0 [facility] Monocytes Auto (Bld) [#/Vol] on 02-14-2024 Monocytes (Bld) [#/Vol] 0.6 10 3/uL 0.3-0.8 [facility] Monocytes/100 WBC Auto (Bld) on 02-14-2024 Monocytes/100 WBC (Bld) 13.3 % High 1.7-12.0 [facility] Neutrophils Auto (Bld) [#/Vo l]on 02-14-2024 Neutrophils (Bld) [#/Vol] 1.7 10 3/uL 1.4-6.5 [facility] Neutrophils/100 WBC Auto (Bl d)on 02-14-2024 Neutrophils/100 WBC (Bld) 34.9 % Low 43.0-75.0 [facility] No Panel Informationon 02-13 Eosinophils # (Auto) 0.1 10 3/uL 0.0-0.7 [facility] Immature Granulocyte # (Auto) 0.04 10 3/uL High 0.00-0.03 [facility] Folate 9.40 ng/mL 8.60-58.90 [facility] Platelet mean volume Auto (B ld) [Entitic vol]on 02-14-2024 Platelet mean volume (Bld) [Entitic vol] 9.1 fL Low 9.5-13.5 [facility] Platelets Auto (Bld) [#/Vol] on 02-14-2024 Platelets (Bld) [#/Vol] 197 10 3/uL 150-450 [facility] RBC Auto (Bld) [#/Vol]on RBC (Bld) [#/Vol] 3.45 10 6/uL Low 4.20-5.40 [facility] Basophils Auto (Bld) [#/Vol] on 02-02-2024 Basophils (Bld) [#/Vol] 0.0 10 3/uL 0.0-0.1 [facility] Basophils/100 WBC Auto (Bld) on 02-02-2024 Basophils/100 WBC (Bld) 0.8 % 0.2-2.0 [facility] Eosinophils/100 WBC Auto (Bl d)on 02-02-2024 Eosinophils/100 WBC (Bld) 2.1 % 0.9-7.0 [facility] Erythrocyte distribution wid th Auto (RBC) [Ratio]on 02-02-2024 Erythrocyte distribution width (RBC) [Ratio] 14.2 % 11.0-15.0 [facility] Estimated glomerular filtrat ion rate (GFR) non- Americanon 02-02-2024 GFR/1.73 sq M.predicted among non-blacks MDRD (S/P/Bld) [Vol rate/Area] 51 mL/min/{1.73_m2} Low >=60 [facility] Globulin Calc (S) [Mass/Vol] on 02-02-2024 Globulin (S) [Mass/Vol] 2.9 g/dL [facility] Hematocrit Auto (Bld) [Volum e fraction]on 02-02-2024 Hematocrit (Bld) [Volume fraction] 31.9 % Low 36.0-48.0 [facility] Hemoglobin [Mass/volume] in Bloodon 02-02-2024 Hemoglobin (Bld) [Mass/Vol] 10.2 g/dL Low 12.0-16.0 [facility] - Chemistry and C hemistry - challengeon 02-02-2024 Albumin [Mass/Vol] 3.9 g/dL 3.4-5.0 [facility] ALP [Catalytic activity/Vol] 48 U/L 46-116 [facility] ALT [Catalytic activity/Vol] 20 U/L 14-59 [facility] AST [Catalytic activity/Vol] 23 U/L 15-37 [facility] Bilirubin [Mass/Vol] 0.5 mg/dL 0.2-1.0 [facility] Calcium [Mass/Vol] 9.1 mg/dL 8.5-10.1 [facility] Chloride [Moles/Vol] 108 mmol/L High 98-107 [facility] CO2 [Moles/Vol] 24.8 mmol/L 21.0-32.0 [facility] Creatinine [Mass/Vol] 1.09 mg/dL High 0.55-1.02 [facility] GFR/1.73 sq M.predicted MDRD (S/P/Bld) [Vol rate/Area] mL/min/{1.73_m2} >=60 [facility] Glucose [Mass/Vol] 87 mg/dL 74-106 [facility] Potassium [Moles/Vol] 3.9 mmol/L 3.5-5.1 [facility] Protein [Mass/Vol] 6.8 g/dL 6.4-8.2 [facility] Sodium [Moles/Vol] 144 mmol/L 136-145 [facility] Urea nitrogen [Mass/Vol] 17.0 mg/dL 7.0-18.0 [facility] Urea nitrogen/Creatinine [Mass ratio] 15.6 mg/mg [facility] - Hematology and Cell countson 02-02-2024 ESR (Bld) [Velocity] 12 mm/h <=30 [facility] Immature granulocytes/100 WBC (Bld) 0.5 % 0.0-0.5 [facility] Leukocytes [#/volume] correc fito for nucleated erythrocytes in Blood by Automated counon 02-02-2024 WBC corrected for nucl RBC Auto (Bld) [#/Vol] 3.8 10 3/uL Low 4.0-11.0 [facility] Lymphocytes Auto (Bld) [#/Vo l]on 02-02-2024 Lymphocytes (Bld) [#/Vol] 1.5 10 3/uL 1.2-3.8 [facility] Lymphocytes/100 WBC Auto (Bl d)on 02-02-2024 Lymphocytes/100 WBC (Bld) 40.3 % 20.5-60.0 [facility] MCH Auto (RBC) [Entitic mass ]on 02-02-2024 MCH (RBC) [Entitic mass] 31.7 pg 26.7-34.0 [facility] MCHC Auto (RBC) [Mass/Vol]on 02-02-2024 MCHC (RBC) [Mass/Vol] 32.0 g/dL 29.9-35.2 [facility] MCV Auto (RBC) [Entitic vol] on 02-02-2024 MCV (RBC) [Entitic vol] 99.1 fL High 81.0-99.0 [facility] Monocytes Auto (Bld) [#/Vol] on 02-02-2024 Monocytes (Bld) [#/Vol] 0.6 10 3/uL 0.3-0.8 [facility] Monocytes/100 WBC Auto (Bld) on 02-02-2024 Monocytes/100 WBC (Bld) 16.1 % High 1.7-12.0 [facility] Neutrophils Auto (Bld) [#/Vo l]on 02-02-2024 Neutrophils (Bld) [#/Vol] 1.5 10 3/uL 1.4-6.5 [facility] Neutrophils/100 WBC Auto (Bl d)on 02-02-2024 Neutrophils/100 WBC (Bld) 40.2 % Low 43.0-75.0 [facility] No Panel Informationon 02-01 Eosinophils # (Auto) 0.1 10 3/uL 0.0-0.7 [facility] Immature Granulocyte # (Auto) 0.02 10 3/uL 0.00-0.03 [facility] Platelet mean volume Auto (B ld) [Entitic vol]on 02-02-2024 Platelet mean volume (Bld) [Entitic vol] 9.3 fL Low 9.5-13.5 [facility] Platelets Auto (Bld) [#/Vol] on 02-02-2024 Platelets (Bld) [#/Vol] 236 10 3/uL 150-450 [facility] RBC Auto (Bld) [#/Vol]on RBC (Bld) [#/Vol] 3.22 10 6/uL Low 4.20-5.40 [facility] Serum or plasma albumin/glob ulin mass ratioon 02-02-2024 Albumin/Globulin [Mass ratio] 1.3 {ratio} [facility] Serum or plasma anion gap de terminationon 02-02-2024 Anion gap [Moles/Vol] 15.1 mmol/L [facility] XR Shoulder - right 2 Viewso n 11-25-2023 Imaging Result: 4 views right shoulder, Grashey/Zanca/outlet/axilla ry, taken today and saved to the permanent medical record. Prosthesis is unchanged in position and alignment. Fracture at the base of the acromion unchanged in appearance. [facility] XR Shoulder - right 2 Viewso n 11-15-2023 Radiology Study observation (narrative) [facility] Office Visiton 11-04-2023 Follow-up visit [id number] Alba Zaidi 1960 F Date Provider Department Center 11/04/2023 367-FARHEENCAROLINA BEAR Lu [facility] Family History Family history unknown: Yes Level of Service:34697 MS OFFICE/OUTPATIENT ESTABLISHED MOD MDM 30 MIN Reason for Visit and Comments: Follow-up [430642] - 2 year Patient has been taking metoprolol 1 tablet QD Normal [facility] CT Upper Extremity w/o Contr ast Righton [...] MD Transcribed by: DANISHA Technologist: ARNULFO Normal [facility] Miscellaneous-LCon Lab Miscellaneous COMMENT Invalid Interpretation Code [facility] Comment on above: Result Comment: Test Ordered: [id number] Interleukin-6, Serum Interleukin-6, Serum <2.5 pg/mL CB [...] endotracheal intubation or mechanical ventilation. Performed at: [address] [id number] PhD Saturnino Morse Performed By: #### 1 [id number] ####[facility] [address] [place] [address] CBC w/ Auto Diffon 4 Basophil Absolute 0.0 E9/L Normal 0.0-0.2 [facility] Comment on above: Performed By: #### 2 483968, [id number], [id number] #### [facility] [address] [place] [address] Basophils/100 WBC (Bld) 0.4 % Normal 0.0-2.0 [facility] Comment on above: Performed By: #### 2 197840, [id number], [id number] #### [facility] [address] [place] [address] Eos Absolute 0.0 E9/L Normal 0.0-0.5 [facility] Comment on above: Performed By: #### 2 661105, 2907282, [id number] #### [facility] [address] [place] [address] Eosinophils/100 WBC (Bld) 0.2 % Normal 0.0-8.0 [facility] Comment on above: Performed By: #### 2 307370, 5602287, [id number] #### [facility] [address] [place] [address] Erythrocyte distribution width (RBC) [Ratio] 14.3 % High 10.9-14.2 [facility] Comment on above: Performed By: #### 2 682423, 8186841, [id number] #### [facility] [address] [place] [address] Hematocrit (Bld) [Volume fraction] 40.0 % Normal 34.0-46.0 [facility] Comment on above: Performed By: #### 2 128107, 2869502, [id number] #### [facility] [address] [place] [address] Hemoglobin (Bld) [Mass/Vol] 12.7 g/dL Normal 12.0-16.0 [facility] Comment on above: Performed By: #### 2 473600, 6657621, [id number] #### [facility] [address] [place] [address] Lymph Absolute 0.9 E9/L Low 1.0-4.0 [facility] Comment on above: Performed By: #### 2 367260, 2286682, [id number] #### [facility] [address] [place] [address] Lymphocytes/100 WBC (Bld) 25.2 % Normal 14.0-50.0 [facility] Comment on above: Performed By: #### 2 869183, 4037539, 78499235 #### [facility] [address] [place] [address] MCH (RBC) [Entitic mass] 30.6 pg Normal 27.0-34.0 [facility] Comment on above: Performed By: #### 2 351193, 6037172, 28842647 #### [facility] [address] [place] [address] MCHC (RBC) [Mass/Vol] 31.7 g/dL Normal 31.4-36.0 [facility] Comment on above: Performed By: #### 2 907743, 2779833, [id number] #### [facility] [address] [place] [address] MCV (RBC) [Entitic vol] 96.5 fL Normal 80.0-100.0 [facility] Comment on above: Performed By: #### 2 469299, 0004552, [id number] #### [facility] [address] [place] [address] [place] Absolute 0.3 E9/L Normal 0.2-1.[address] [facility] Comment on above: Performed By: #### 2 545422, 9296244, [id number] #### [facility] [address] [place], [place] [address] Monocytes/100 WBC (Bld) 7.3 % Normal 4.0-14.0 [facility] Comment on above: Performed By: #### 2 859939, 0749169, [id number] #### [facility] [address] [place] [address] Neutro Absolute 2.3 E9/L Normal 2.0-7.5 [facility] Comment on above: Performed By: #### 2 820478, 3006396, [id number] #### [facility] [address] [place] [address] Neutro Auto 66.9 % Normal 36.0-75.0 [facility] Comment on above: Performed By: #### 2 102910, 5659962, [id number] #### [facility] [address] [place] [address] Platelet 257.0 E9/L Normal 150.0-500.0 [facility] Comment on above: Performed By: #### 2 497973, 6123668, [id number] #### [facility] [address] [place] [address] Platelet mean volume (Bld) [Entitic vol] 7.4 fL Normal 6.4-10.8 [facility] Comment on above: Performed By: #### 2 274253, 4184787, [id number] #### [facility] [address] [place] [address] RBC 4.1 E12/L Low 4.3-5.9 [facility] Comment on above: Performed By: #### 2 254573, 4890507, 27345397 #### [facility] [address] [place] [address] WBC 3.4 E9/L Low 4.0-11.0 [facility] Comment on above: Performed By: #### 2 763649, 8293160, 47398875 #### [facility] [address] [place] [address] CHEMISTRYOrdered By: SYSTEM SYSTEM on 09-06-2023 CRP mg/dL Normal <=1.9mg/dL Remisol Chem CRPon 09-06-2023 CRP [Mass/Vol] mg/L Normal <=1.9 [facility] Comment on above: Performed By: #### 2 212143, 1410283, [id number] #### [facility] [address] [place] [address] Consent for Treatmenton 08-12 Consent for Treatment [id number]#[id number] Normal [facility] HEMATOLOGYOrdered By: SYSTEM SYSTEM on 09-06-2023 [...] Normal 80.0 - 100.0 fL Remisol Heme [place] Absolute 0.3 E9/L Normal 0.2 - 1.0 [...] 14 mm/h Normal 0 - 34 mm/hr [facility] HemeAutoSS Lab Miscellaneous-LCon 09-06 Test Code 223938 Invalid Interpretation Code [facility] Comment on above: Performed By: #### 1 [id number] ####[facility] [address] [place] [address] Test Name interleukin 6 Invalid Interpretation Code [facility] Comment on above: Performed By: #### 1 [id number] ####[facility] [address] [place] [address] Physician Orderon 09-06-2023 Physician Order [id number]#[id number] Normal [facility] Reference Laboratory Testing Ordered By: Jojo Gonsales on 09-06-2023 Test Code 172894 1 Invalid Interpretation Code [facility] SendOutsSS Test Name interleukin 6 Invalid Interpretation Code [facility] SendOutsSS Sed Rate Automatedon 024 ESR (Bld) [Velocity] 14 mm/h Normal 0-34 [facility] Comment on above: Performed By: #### 2 392029, 5769428, [id number] #### [facility] [address] [place] [address] Physician Orderon 08-31-2023 Physician Order [id number]#1.00TIFF Normal [facility] Basophils Auto (Bld) [#/Vol] on 08-30-2023 Basophils (Bld) [#/Vol] 0.0 10 3/uL 0.0-0.1 [facility] Basophils/100 WBC Auto (Bld) on 08-30-2023 Basophils/100 WBC (Bld) 0.8 % 0.2-2.0 [facility] Cholesterol in LDL Calc [Mas s/Vol]on 08-30-2023 Cholesterol in LDL [Mass/Vol] 152.0 mg/dL [facility] Comment on above: <100 mg/dl [id number] 0-129 mg/dl NEAR OR ABOVE [id number] mg/dl BORDERLINE [id number] mg/dl HIGH>190 mg/dl VERY HIGH Cholesterol in VLDL Calc [Ma ss/Vol]on 08-30-2023 Cholesterol in VLDL [Mass/Vol] 20.2 mg/dL [facility] Eosinophils/100 WBC Auto (Bl d)on 08-30-2023 Eosinophils/100 WBC (Bld) 4.2 % 0.9-7.0 [facility] Erythrocyte distribution wid th Auto (RBC) [Ratio]on 08-30-2023 Erythrocyte distribution width (RBC) [Ratio] 13.4 % 11.0-15.0 [facility] Estimated glomerular filtrat ion rate (GFR) non- Americanon 08-30-2023 GFR/1.73 sq M.predicted among non-blacks MDRD (S/P/Bld) [Vol rate/Area] 59 mL/min/{1.73_m2} >=60 [facility] Globulin Calc (S) [Mass/Vol] on 08-30-2023 Globulin (S) [Mass/Vol] 3.4 g/dL [facility] Hematocrit Auto (Bld) [Volum e fraction]on 08-30-2023 Hematocrit (Bld) [Volume fraction] 39.5 % 36.0-48.0 [facility] Hemoglobin [Mass/volume] in Bloodon 08-30-2023 Hemoglobin (Bld) [Mass/Vol] 12.5 g/dL 12.0-16.0 [facility] - Chemistry and C hemistry - challengeon 08-30-2023 Albumin [Mass/Vol] 3.7 g/dL 3.4-5.0 [facility] ALP [Catalytic activity/Vol] 45 U/L 46-116 [facility] ALT [Catalytic activity/Vol] 23 U/L 14-59 [facility] AST [Catalytic activity/Vol] 21 U/L 15-37 [facility] Bilirubin [Mass/Vol] 0.4 mg/dL 0.2-1.0 [facility] Calcium [Mass/Vol] 9.0 mg/dL 8.5-10.1 [facility] Chloride [Moles/Vol] 106 mmol/L 98-107 [facility] Cholesterol [Mass/Vol] 246 mg/dL <=200 [facility] Cholesterol in HDL [Mass/Vol] 74 mg/dL 40-60 [facility] Comment on above: > or =60 mg/dl - LOW CARDIOVASCULAR RISK<40 mg/dl - HIGH CARDIOVASCULAR RISK CO2 [Moles/Vol] 25.5 mmol/L 21.0-32.0 [facility] Creatinine [Mass/Vol] 0.96 mg/dL 0.55-1.02 [facility] GFR/1.73 sq M.predicted MDRD (S/P/Bld) [Vol rate/Area] mL/min/{1.73_m2} >=60 [facility] Glucose [Mass/Vol] 86 mg/dL 74-106 [facility] Potassium [Moles/Vol] 3.8 mmol/L 3.5-5.1 [facility] Protein [Mass/Vol] 7.1 g/dL 6.4-8.2 [facility] Sodium [Moles/Vol] 142 mmol/L 136-145 [facility] Triglyceride [Mass/Vol] 101 mg/dL <=150 [facility] TSH Qn 1.531 m[IU]/L 0.358-3.740 [facility] Urea nitrogen [Mass/Vol] 20.0 mg/dL 7.0-18.0 [facility] Urea nitrogen/Creatinine [Mass ratio] 20.8 mg/mg [facility] - Hematology and Cell countson 08-30-2023 ESR (Bld) [Velocity] 16 mm/h <=30 [facility] Immature granulocytes/100 WBC (Bld) 0.3 % 0.0-0.5 [facility] Leukocytes [#/volume] correc fito for nucleated erythrocytes in Blood by Automated counon 08-30-2023 WBC corrected for nucl RBC Auto (Bld) [#/Vol] 3.8 10 3/uL 4.0-11.0 [facility] Lymphocytes Auto (Bld) [#/Vo l]on 08-30-2023 Lymphocytes (Bld) [#/Vol] 1.7 10 3/uL 1.2-3.8 [facility] Lymphocytes/100 WBC Auto (Bl d)on 08-30-2023 Lymphocytes/100 WBC (Bld) 44.8 % 20.5-60.0 [facility] MCH Auto (RBC) [Entitic mass ]on 08-30-2023 MCH (RBC) [Entitic mass] 31.1 pg 26.7-34.0 [facility] MCHC Auto (RBC) [Mass/Vol]on 08-30-2023 MCHC (RBC) [Mass/Vol] 31.6 g/dL 29.9-35.2 [facility] MCV Auto (RBC) [Entitic vol] on 08-30-2023 MCV (RBC) [Entitic vol] 98.3 fL 81.0-99.0 [facility] Monocytes Auto (Bld) [#/Vol] on 08-30-2023 Monocytes (Bld) [#/Vol] 0.5 10 3/uL 0.3-0.8 [facility] Monocytes/100 WBC Auto (Bld) on 08-30-2023 Monocytes/100 WBC (Bld) 14.1 % 1.7-12.0 [facility] Neutrophils Auto (Bld) [#/Vo l]on 08-30-2023 Neutrophils (Bld) [#/Vol] 1.4 10 3/uL 1.4-6.5 [facility] Neutrophils/100 WBC Auto (Bl d)on 08-30-2023 Neutrophils/100 WBC (Bld) 35.8 % 43.0-75.0 [facility] No Panel Informationon 08-30 Eosinophils # (Auto) 0.2 10 3/uL 0.0-0.7 [facility] Immature Granulocyte # (Auto) 0.01 10 3/uL 0.00-0.03 [facility] Platelet mean volume Auto (B ld) [Entitic vol]on 08-30-2023 Platelet mean volume (Bld) [Entitic vol] 9.1 fL 9.5-13.5 [facility] Platelets Auto (Bld) [#/Vol] on 08-30-2023 Platelets (Bld) [#/Vol] 181 10 3/uL 150-450 [facility] RBC Auto (Bld) [#/Vol]on RBC (Bld) [#/Vol] 4.02 10 6/uL 4.20-5.40 [facility] Serum or plasma albumin/glob ulin mass ratioon 08-30-2023 Albumin/Globulin [Mass ratio] 1.1 {ratio} [facility] Serum or plasma anion gap de terminationon 08-30-2023 Anion gap [Moles/Vol] 14.3 mmol/L [facility] Serum or plasma total choles terol/high density lipoprotein (HDL) cholesterol mass albina 08-30-2023 Cholesterol.total/C holesterol in HDL [Mass ratio] 3.3 {ratio} [facility] Comment on above: 3.3 - 4.4 [...] No obvious fractures at the coracoid process. [facility] XR Shoulder - right 2 Viewso n 08-18-2023 Radiology Study observation (narrative) [facility] IntraOperative Documentson 1 IntraOperative Documents [id number] Normal [facility] Auto Diffon 04-07-2023 Basophils/100 WBC (Bld) 0.2 % Normal 0.0-2.0 [facility] Comment on above: Order Comment: Order Added by Discern Expert. Performed By: #### 2 [id number], 9453184, 2226038, 1900890, [id number], [id number] #### [facility] [address] [place] [address] Basophils/Leukocyte s Auto (Bld) [Pure # fraction] 0.0 E9/L Normal 0.0-0.2 [facility] Comment on above: Order Comment: Order Added by Discern Expert. Performed By: #### 2 577029, 5642320, 7196924, 8034032, [id number], 5859034 #### [facility] [address] [place] [address] Eosinophils/100 WBC (Bld) 0.0 % Normal 0.0-8.0 [facility] Comment on above: Order Comment: Order Added by Discern Expert. Performed By: #### 2 306009, 8522567, 5948313, 2185769, [id number], [id number] #### [facility] [address] [place] [address] Eosinophils/Leukocy elli Auto (Bld) [Pure # fraction] 0.0 E9/L Normal 0.0-0.5 [facility] Comment on above: Order Comment: Order Added by Discern Expert. Performed By: #### 2 729091, 1252954, 7315892, [id number], [id number], 4203593 #### [facility] [address] [place] [address] Lymphocytes/100 WBC (Bld) 7.9 % Low 14.0-50.0 [facility] Comment on above: Order Comment: Order Added by Discern Expert. Performed By: #### 2 487748, 8473462, 9773059, 0841001, 43446210, 1120700 #### [facility] [address] [place] [address] Lymphocytes/Leukocy elli Auto (Bld) [Pure # fraction] 0.8 E9/L Low 1.0-4.0 [facility] Comment on above: Order Comment: Order Added by Discern Expert. Performed By: #### 2 784404, 3978249, 0926106, 5124664, 33985448, 9426454 #### [facility] [address] [place] [address] Monocytes/100 WBC (Bld) 14.0 % Normal 4.0-14.0 [facility] Comment on above: Order Comment: Order Added by Discern Expert. Performed By: #### 2 242215, 7552226, 7007213, 8614051, 72934727, 6971221 #### [facility] [address] [place] [address] Monocytes/Leukocyte s Auto (Bld) [Pure # fraction] 1.3 E9/L High 0.2-1.0 [facility] Comment on above: Order Comment: Order Added by Discern Expert. Performed By: #### 2 547457, 1214102, 0231905, 2345642, 99505815, 1184051 #### [facility] [address] [place] [address] Neutrophils/100 WBC (Bld) 77.9 % High 36.0-75.0 [facility] Comment on above: Order Comment: Order Added by Discern Expert. Performed By: #### 2 288914, 1954728, 0331746, 8865848, 36878703, 3857287 #### [facility] [address] [place] [address] Neutrophils/Leukocy elli Auto (Bld) [Pure # fraction] 7.5 E9/L Normal 2.0-7.5 [facility] Comment on above: Order Comment: Order Added by Discern Expert. Performed By: #### 2 231340, 9089391, 1365757, 4920973, 64833125, 2189786 #### [facility] [address] [place] [address] BUNon 04-07-2023 Urea nitrogen [Mass/Vol] 20 mg/dL Normal 5-21 [facility] Comment on above: Performed By: #### 2 167337, 4723682, 3021390, 7318303, 89909564, 7741687 #### [facility] [address] [place] [address] CBC w/ Auto Diffon Erythrocyte distribution width (RBC) [Ratio] 14.6 % High 10.9-14.2 [facility] Comment on above: Performed By: #### 2 788676, 9120350, 3588185, 9482210, 21776315, 0346605 #### [facility] [address] [place] [address] Hematocrit (Bld) [Volume fraction] 29.7 % Low 34.0-46.0 [facility] Comment on above: Performed By: #### 2 707373, 2428660, 1708861, 2635064, 67346896, 6990514 #### [facility] [address] [place] [address] Hemoglobin (Bld) [Mass/Vol] 10.0 g/dL Low 12.0-16.0 [facility] Comment on above: Performed By: #### 2 375611, 5700580, 3768302, 2503120, 57007500, 2588711 #### [facility] [address] [place] [address] MCH (RBC) [Entitic mass] 32.5 pg Normal 27.0-34.0 [facility] Comment on above: Performed By: #### 2 764992, 9434793, 0161858, 1138611, 96200154, 8812420 #### [facility] [address] [place] [address] MCHC (RBC) [Mass/Vol] 33.6 g/dL Normal 31.4-36.0 [facility] Comment on above: Performed By: #### 2 653929, 6705655, 9318944, 9768317, 29477848, 8259584 #### [facility] [address] [place] [address] MCV (RBC) [Entitic vol] 96.7 fL Normal 80.0-100.0 [facility] Comment on above: Performed By: #### 2 575946, 1428930, 5787670, 7278950, 31296037, 7521482 #### [facility] [address] [place] [address] Platelet mean volume (Bld) [Entitic vol] 7.1 fL Normal 6.4-10.8 [facility] Comment on above: Performed By: #### 2 200493, 5664110, 8386592, 5163350, 02849272, 5536075 #### [facility] [address] [place] [address] Platelets (Bld) [#/Vol] 215.0 E9/L Normal 150.0-500.0 [facility] Comment on above: Performed By: #### 2 789824, 0888942, 5199308, 4784833, 03636526, 3266111 #### [facility] [address] [place] [address] RBC (Bld) [#/Vol] 3.1 E12/L Low 4.3-5.9 [facility] Comment on above: Performed By: #### 2 178728, 1936729, 1818398, 5262674, 11496336, 1303555 #### [facility] [address] [place] [address] WBC corrected for nucl RBC Auto (Bld) [#/Vol] 9.6 E9/L Normal 4.0-11.0 [facility] Comment on above: Performed By: #### 2 611274, 1654027, 1013558, 1629547, 55577373, 6665880 #### [facility] [address] [place] [address] CHEMISTRYOrdered By: SYSTEM SYSTEM on 04-07-2023 Anion gap [Moles/Vol] 6 mmol/L Normal 6 - 16 mEq/L [facility] Remisol Chloride [Moles/Vol] 118 mmol/L High 101 - 111 mmol/L FT Remisol CO2 [Moles/Vol] 23 mmol/L Normal 21 - 31 mmol/L FT Remisol Creatinine [Mass/Vol] 0.9 mg/dL Normal 0.5 - 1.3 mg/dL [facility] Remisol GFR/1.73 sq M.predicted among non-blacks MDRD (S/P/Bld) [Vol rate/Area] 72 mL/min/1.73 m2 Normal >=59mL/min/ 1.73 m2 [facility] Chem S Comment on above: Interpretive Data: C hronic kidney disease could be indicated at eGFR's of less than 60 mL/min/1.73m2. Kidney failure is indicated at less than 15 mL/min/1.73m2. Potassium [Moles/Vol] 4.0 mmol/L Normal 3.5 - 5.3 mmol/L FT Remisol Sodium [Moles/Vol] 143 mmol/L Normal 135 - 145 mmol/L FT Remisol Urea nitrogen [Mass/Vol] 20 mg/dL Normal 5 - 21 mg/dL [facility] Remisol Consent for Anesthesiaon Consent for Anesthesia [id number]#[id number]:127 Normal [facility] Creatinineon 04-07-2023 Creatinine [Mass/Vol] 0.9 mg/dL Normal 0.5-1.3 [facility] Comment on above: Performed By: #### 2 652987, 4453512, 1023014, 2539970, 14470884, 1008066 ####[facility] [address] [place] [address] Discharge Instructionson Discharge Instructions [id number]#[id number]:127 Normal [facility] Discharge Note-Nursingon Discharge Note-Nursing SHIRA ZAIDISHEYLA Lockett :1960 Visit Date:04/06/2023 Inpatient Discharge Instructions Your [...] Pending Diagnostic Test Results None Pharmacy Information [facility]- [facility]a New Follow Up Appointments after Discharge Follow Up with Jordan Yuan When: Where: [address] [place] [address]- Business (1) Follow Up with JOHN ASHBY When: In 0 days Where: [address], [place] [address]- Business (1) Medications What How Much When Instructions Next Dose Changed acetaminophen-oxycodone (Percocet 5 mg-325 mg oral tablet) See instructions 1-2 tab(s) Oral q4hr Pickup at [facility]/pharmacy #6177 Next dose due after 10am Unchanged buPROPion (Wellbutrin XL 300 mg/ 24 hours Tab-ER) 1 Tablets By Mouth 2 times a day 04/07/23 @ 9pm Unchanged celecoxib (CeleBREX 100 mg Cap) 1 Capsules By Mouth 2 times a day as needed for for pain Pickup at [facility]/pharmacy #6177 04/07/23 @ 9pm Unchanged cephalexin (Keflex 500 mg Cap) 1 Capsules By Mouth Every 8 hours Duration: 7 Days Pickup at [facility]/pharmacy #6177 04/07/23 @ 2pm and bedtime Unchanged docusate (Colace 100 mg Cap) 1 Capsules By Mouth 2 times a day as needed for for constipation Pickup at [facility]/pharmacy #6177 04/07/23 @ 9pm Unchanged leflunomide (Arava [...] Every day 04/08/23 @ 9am Pharmacy Information [facility]/pharmacy #6177: [address], [place] [phone] Test Results CBC BMP WBC: 9.6 E9/L [...] Lateralized/ 24, Shoulder Implant 04/06/2023 [employer] revers [place] humeral Stem Size 9, Shoulder Implant 04/06/2023 [employer]vers SutureCap, 36 neutral, shoulder Implant 04/06/2023 [employer]revers Humeral Insert, small, 36, +6, Shoulder (more content not included)... Normal [facility] HEMATOLOGYOrdered By: SYSTEM SYSTEM on 04-07-2023 [...] Inpatient Clinical Summaryon 04-07-2023 Inpatient Clinical Summary [address] [address] Clinical Summary Person Information: Name: RADHA ZAIDI Age: 62 Years : 1960 Sex: Female PCP: JOHN ASHBY DO Marital Status: Phone: [phone] Race: White Ethnicity: Non- or Language: Belgian Visit Id: Visit Reason: OA RIGHT SHOULDER Speciality: Acuity: Enc Type: Observation Med Service: Medical Arrival: 04/06/2023 06:09:55 Discharge: Dispo Type: Address: [address] [place] [address] [address] [place] [id number] Provider Notes: Patient: RADHA ZAIDI Age: 62 [...] Follow up: With: Address: When: Jordan Yuan [facility] [place] [address] Business (1) 04/19/2023 2:15 PM With: Address: When: JOHN ASHBY [address] [place] [address] Business (1) Patient Education Information: Brown, J. - Shoulder Replacement (Custom) Normal [facility] Inpatient Patient Summaryon 04-07-2023 Inpatient Patient Summary [address] [address] Patient Discharge Instructions PERSON INFORMATION [...] Follow up: With: Address: When: Jordan Yuan [address] [place] [address] Business (1) 04/19/2023 2:15 PM With: Address: When: JOHN ASHBY [address] [place] [address] Business (1) In the event that [...] That Have Changed [facility], [address], [place] [phone], [phone] START: acetaminophen-oxycodone (Percocet 5 mg-325 mg oral tablet) 1-2 tab(s) Oral q4hr. Refills: 0. Last Dose: Ne xt Dose: STOP: acetaminophen-oxycodone (Percocet 5 mg-325 mg oral tablet) 1 Tablets By Mouth 3 times a day. Medications to Continue with No Changes [facility]/pharmacy #6177, [address], [place] [phone], [phone] celecoxib (CeleBREX 100 mg Cap) 1 Capsules [...] Lu (419) (more content not included)... Normal [facility] IntraOperative Documentson 0 04-07-2023 IntraOperative Documents [id number]#1.00CD:127 Normal [facility] IntraOperative Documents [id number]#1.00CD:127 Normal [facility] Lyteson 04-07-2023 Anion gap [Moles/Vol] 6 mmol/L Normal 6-16 [facility] Comment on above: Performed By: #### 2 881617, 7776274, 1342544, 3151067, 93504824, 7412621 ####[facility] [address] [place] [address] Chloride [Moles/Vol] 118 mmol/L High 101-111 [facility] Comment on above: Performed By: #### 2 092832, 3670662, 9978487, 6857064, 76700127, 3221682 ####[facility] [address] [place] [address] CO2 [Moles/Vol] 23 mmol/L Normal 21-31 [facility] Comment on above: Performed By: #### 2 156605, 9427548, 0456912, 8994881, 69500290, 2178526 ####[facility] [address] [place] [address] Potassium [Moles/Vol] 4.0 mmol/L Normal 3.5-5.3 [facility] Comment on above: Performed By: #### 2 343571, 6580887, 9771246, 9178639, 79664830, 7990496 ####[facility] [address] [place] [address] Sodium [Moles/Vol] 143 mmol/L Normal 135-145 [facility] Comment on above: Performed By: #### 2 834775, 2623273, 7297772, 5884882, 22174784, 0277424 ####[facility] [address] [place] [address] Main OR Intraoperative Recor don 04-07-2023 Main OR Intraoperative Record IntraOp Document Type FT Summary Primary Physician: Jordan Yuan DO Finalized Date/Time: 04/07/23 14:30:58 Pt. Name: DYANRADHA/Sex: 1960 Female Med Rec #: [id number] Physician: Jordan Yuan DO Financial #: [id number] Pt. Type: A Room/Bed: [place] [address] Admit/Disch: 04/06/23 06:09:55 - 04/07/23 09:30:00 Institution: [...] Patient transported via cart back to [facility] [place] [facility] and placed on SP02 monitor by ESTRELLITA De La Fuente. 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 Normal [facility] Main OR PACU I Recordon 03-12 Main OR PACU I Record PACU Phase I Document Type FT Summary Primary Physician: Jordan Yuan DO Finalized Date/Time: 04/07/23 08:05:19 Pt. Name: SHIRA ZAIDISHEYLA Irwin./Sex: 1960 Female Med Rec #: [id number] Physician: Jordan Yuan DO Financial #: [id number] Pt. Type: O Room/Bed: N305/01 Admit/Disch: 04/06/23 [...] 08:04 Cate Gonsales RN 04/07/23 08:05 Normal [facility] Patient Education - Texton 0 04-07-2023 Patient Education - Text [place], [place] [facility] DISCHARGE INSTRUCTIONS: SHOULDER REPLACEMENT [...] persistent vomiting. Jordan Yuan DO [facility] [address] [place] [address] Reviewed: Normal [facility] Preoperative Documentson Preoperative Documents [id number]#[id number]:127 Normal [facility] Progress Note-Physicianon Progress Note-Physician Patient: RADHA [...] Pressure 63 mmHg SpO2 94 % Normal [facility] Comment on above: Result Comment: Elec tronically Signed By: Jordan Yuan DO\.br\Date and Time Signed: 04/07/23 07:40 EDT eGFRon 04-07-2023 GFR/1.73 sq M.predicted among non-blacks MDRD (S/P/Bld) [Vol rate/Area] 72 mL/min/1.73 m2 Normal >=59 [facility] Comment on above: Order Comment: Order added by Discern Expert. Result Comment: Gun Welder dina kidney disease could be indicated at eGFR's of less than 60 mL/min/1.73m2. Kidney failure is indicated at less than 15 mL/min/1.73m2. Performed By: #### 2 245178, 5207649, 8849007, 2489059, 34006472, 8218325 ####[facility] [address] [place] [address] ABO/Rhon 04-06-2023 ABO/Rh Positive Invalid Interpretation Code [facility] Comment on above: Performed By: #### 1 2357685, 66915131, 75227927, 7402664 ####[facility] [address] [place] [address] ABO/Rh History Checkon 04-06 ABO/Rh History Check Verified Hx Blood Type Normal [facility] Comment on above: Performed By: #### 1 7444534, 40505813, 55342851, 2162877 ####[facility] [address] [place] [address] ABSCon 04-06-2023 ABSC Gel Interp Negative Normal [facility] Comment on above: Performed By: #### 1 1852689, 36376928, 42799529, 4582861 ####[facility] [address] [place] [address] BLOOD BANKOrdered By: Andra Nunez on 04-06-2023 ABO/Rh Interp Positive Invalid Interpretation Code [facility] BB Subsection ABSC Gel Interp Negative (04/06/23 7:23 AM) Normal [facility] BB Subsection Blood Bank ID#on 04-06-2023 BBID# [id number] Invalid Interpretation Code [facility] Comment on above: Performed By: #### 1 1355747, 91968574, 37323416, 5800180 ####[facility] [address] [place] [address] Consent for Treatmenton 03-12 Consent for Treatment [id number]#1.00CD:127 [facility] H&P Updateon 04-06-2023 H&P Update [id number]#1.00CD:127 [facility] Insurance Correspondence Off iceon 04-06-2023 Insurance Correspondence Office [id number]#1.00CD:127 [facility] Main OR Preoperative Recordo n 04-06-2023 Main OR Preoperative Record PreOp Document Type FT Summary Primary Physician: Jordan Yuan DO Finalized Date/Time: 04/06/23 09:32:24 Pt. Name: ZAIDIRADHA./Sex: 1960 Female Med Rec #: [id number] Physician: Jordan Yuan DO Financial #: [id number] Pt. Type: A Room/Bed: 11/08 Admit/Disch: 04/06/23 [...] By: Dennis Goldman RN 04/06/23 09:32 Normal [facility] Monitor Recordon 04-06-2023 Monitor Record [id number]#1.00CD:127 [facility] Monitor Record [id number]#1.00CD:127 [facility] Monitor Record [id number]#1.00CD:127 Normal [facility] Operative Reporton Operative Report Patient: ELIZABET ZAIDI Age: 62 years Sex: Female : 1960 Associated Diagnoses: None Author: Jordan Yuan DO DATE OF SURGERY: 04/06/2023 SURGEON: Jordan Yuan D.O. DIALYSIS EQUIPMENT TECHNICIAN: Anival Flores CFA PREOPERATIVE DIAGNOSIS: Massive [...] 3. size +6 humeral insert 4. Revers [place] size 9 stem with 36 (neutral) Suturecup OPERATIVE INDICATIONS: Radha is a 62-year-old fvzbp-eeba-hyayfhsn female who has had persistent right shoulder [...] The depth-stop (more content not included)... Normal [facility] Comment on above: Result Comment: Elec [...] Using maximal sterile barrier technique per current [facility] guidelines including hand hygeine, Guidance (Ultrasound used [...] patient tolerated the procedure as expected. Normal [facility] Comment on above: Result Comment: Elec tronically Signed By: Yanick Rai DO\.br\Date and Time Signed: 04/06/23 08:44 EDT Progress Note-Physicianon Progress Note-Physician Patient: RADHA ZAIDI Age: 62 years Sex: Female : 1960 Associated Diagnoses: None Author: Yanick Rai DO Postoperative Information Postoperative disposition: Postoperative disposition: To PACU. Optimetrix number: Optimetrix number [id number]. Anesthetic utilized: General. Regional: Interscalene Block. Health [...] pain, # 60 cap(s), Refills(s) 0, Pharmacy: [facility]/pharmacy #6177, 160, cm, 03/25/23 6:16:00 EDT, Height/Length Dos (more content not included)... 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 Family History: Primary malignant neoplasm of prostate Father Acute myocardial infarction Mother Procedure history: Cervical laminectomy (1845628405). Amputation of finger (093872883). Removal of lung, Partial (60478). Open reduction and internal fixation of fracture Leg (820934378). Foot surgery (0194217174). Lumbar discectomy (150187871). Social History Social & Psychosocial Habits Alcohol [...] to auscultation. (more content not included)... Normal [facility] Comment on above: Result Comment: Elec [...] mGy = na DAP = na Normal [facility] Consent for Procedure/Surger yon 04-05-2023 Consent for Procedure/Surgery [id number]#1.00CD:127 [address] [facility] CT Upper Extremity w/o Contr ast [...] DO Transcribed by: DANISHA Technologist: CONSTANTINO Normal [facility] ABO/Rh Retypeon 03-24-2023 ABO/Rh Retype Interp Positive Invalid Interpretation Code [facility] Comment on above: Performed By: #### 1 [id number] ####[facility] [address] [place] [address] BLOOD BANKOrdered By: Andra Longoria on 03-24-2023 ABO/Rh Retype Interp Positive Invalid Interpretation Code [facility] BB Subsection BUNon 03-24-2023 Urea nitrogen [Mass/Vol] 28 mg/dL High 5-21 [facility] Comment on above: Performed By: #### 1 8818040, 5597525, 9729034, 3600131, 7818722, 5595707 ####[facility] [address] [place] [address] CBC w/Indiceson 03-24-2023 Erythrocyte distribution width (RBC) [Ratio] 14.5 % High 10.9-14.2 [facility] Comment on above: Performed By: #### 1 7285755, 6098508, 9544160, 3040565, 0404966, 5055544 ####[facility] [address] [place] [address] Hematocrit (Bld) [Volume fraction] 35.9 % Normal 34.0-46.0 [facility] Comment on above: Performed By: #### 1 6029541, 7849203, 5346512, 8355102, 8253109, 8211409 ####[facility] [address] [place] [address] Hemoglobin (Bld) [Mass/Vol] 11.9 g/dL Low 12.0-16.0 [facility] Comment on above: Performed By: #### 1 1353715, 8027517, 2796759, 1985959, 9278670, 1669623 ####[facility] [address] [place] [address] MCH (RBC) [Entitic mass] 32.3 pg Normal 27.0-34.0 [facility] Comment on above: Performed By: #### 1 2637162, 1924261, 3076482, 1056183, 0823073, 8360698 ####[facility] [address] [place] [address] MCHC (RBC) [Mass/Vol] 33.1 g/dL Normal 31.4-36.0 [facility] Comment on above: Performed By: #### 1 6880925, 8233102, 1635390, 5625361, 3880153, 5138794 ####[address] [place] [address] MCV (RBC) [Entitic vol] 97.4 fL Normal 80.0-100.0 [facility] Comment on above: Performed By: #### 1 9327450, 2458623, 8522889, 6490425, 7940310, 7678536 ####[address] [place] [address] Platelet mean volume (Bld) [Entitic vol] 7.4 fL Normal 6.4-10.8 [facility] Comment on above: Performed By: #### 1 5060236, 9308737, 8573648, 4661111, 7773078, 9710986 ####[address] [place] [address] Platelets (Bld) [#/Vol] 207.0 E9/L Normal 150.0-500.0 [facility] Comment on above: Performed By: #### 1 4986730, 8866675, 1826005, 1564711, 8114687, 6417390 ####[address] [address] RBC (Bld) [#/Vol] 3.7 E12/L Low 4.3-5.9 [facility] Comment on above: Performed By: #### 1 9182764, 1789434, 4179510, 6810083, 5636047, 7528223 ####[address] [place] [address] WBC corrected for nucl RBC Auto (Bld) [#/Vol] 3.5 E9/L Low 4.0-11.0 [facility] Comment on above: Performed By: #### 1 5750369, 2095316, 0633880, 3882662, 9492210, 1476633 ####[address] [address] CHEMISTRYOrdered By: SYSTEM SYSTEM on 03-24-2023 Anion gap [Moles/Vol] 12 mmol/L Normal 6 - 16 mEq/L [facility] Remisol Chloride [Moles/Vol] 111 mmol/L Normal 101 - 111 mmol/L [facility] Remisol CO2 [Moles/Vol] 20 mmol/L Low 21 - 31 mmol/L [facility] Remisol Creatinine [Mass/Vol] 1.2 mg/dL Normal 0.5 - 1.3 mg/dL [facility] Remisol GFR/1.73 sq M.predicted among non-blacks MDRD (S/P/Bld) [Vol rate/Area] 51 mL/min/1.73 m2 Low >=59mL/min/ 1.73 m2 [facility] Chem S Glucose [Mass/Vol] 84 mg/dL Normal 55 - 199 mg/dL [facility] Remisol Potassium [Moles/Vol] 4.2 mmol/L Normal 3.5 - 5.3 mmol/L [facility] Remisol Sodium [Moles/Vol] 139 mmol/L Normal 135 - 145 mmol/L [facility] Remisol Urea nitrogen [Mass/Vol] 28 mg/dL High 5 - 21 mg/dL [facility] Remisol Consent for Treatmenton 03-11 Consent for Treatment [id number]#[id number]:127 Normal [facility] Creatinineon 03-24-2023 Creatinine [Mass/Vol] 1.2 mg/dL Normal 0.5-1.3 [facility] Comment on above: Performed By: #### 1 6527852, 8762723, 8270910, 8955677, 0039445, 2312785 ####[facility] [address] [place] [address] Glucoseon 03-24-2023 Glucose [Mass/Vol] 84 mg/dL Normal 55-199 [facility] Comment on above: Performed By: #### 1 [id number], [id number], 3351170, 0395055, 1247584, [id number] ####[facility] [address] [place] [address] HEMATOLOGYOrdered By: Andra Longoria on 09-14-2023 Erythrocyte distribution width (RBC) [Ratio] 14.5 % [...] 3.5 E9/L Low 4.0 - 11.0 E9/L [facility] HemeAutoSS Lyteson 03-24-2023 Anion gap [Moles/Vol] 12 mmol/L Normal 6-16 [facility] Comment on above: Performed By: #### 1 [id number], 0171987, 8273404, 6917629, 9105682, 8062056 ####[facility] [address] [place] [address] Chloride [Moles/Vol] 111 mmol/L Normal 101-111 [facility] Comment on above: Performed By: #### 1 [id number], 1888870, 6540949, 8101182, 6516452, 7408051 ####[facility] [address] [place] [address] CO2 [Moles/Vol] 20 mmol/L Low 21-31 [facility] Comment on above: Performed By: #### 1 [id number], 5438432, 0237770, 5117955, 3480480, 0819438 ####[facility] [address] [place] [address] Potassium [Moles/Vol] 4.2 mmol/L Normal 3.5-5.3 [facility] Comment on above: Performed By: #### 1 [id number], 6282683, 1067849, 4549785, 9819171, 7207050 ####[facility] [address] [place] [address] Sodium [Moles/Vol] 139 mmol/L Normal 135-145 [facility] Comment on above: Performed By: #### 1 1502637, 2560145, 8826789, 6723998, 7235125, 2379394 ####[facility] [address] [place] [address] UA With Cult Reflexon 2022 Bilirubin Ql (U) Negative Normal Negative [facility] Comment on above: Performed By: #### 1 [id number] #### [facility] [address] [place] [address] Clarity (U) CLEAR Normal Clear [facility] Comment on above: Performed By: #### 1 [id number] #### [facility] [address] [place] [address] Color (U) YELLOW Normal Yellow [facility] Comment on above: Performed By: #### 1 [id number] #### [facility] [address] [place] [address] Epithelial cells.squamous LM.HPF (Urine sed) [#/Area] 0-2 Normal 0-2 [facility] Comment on above: Performed By: #### 1 [id number] #### [facility] [address] [place] [address] Fine Granular Casts LM Ql (Urine sed) 0-3 Normal [facility] Comment on above: Performed By: #### 1 [id number] #### [facility] [address] [place] [address] Glucose Test strip (U) [Mass/Vol] Negative Normal Negative [facility] Comment on above: Performed By: #### 1 [id number] #### [facility] [address] [place] [address] Hemoglobin Ql (U) Negative Normal Negative [facility] Comment on above: Performed By: #### 1 [id number] #### [facility] [address] [place] [address] Ketones (U) [Mass/Vol] Negative Normal Negative [facility] Comment on above: Performed By: #### 1 [id number] #### [facility] [address] [place] [address] [place].plasma/Lith ium.RBC (Bld) [Mass ratio] 0-3 Normal 0-3 [facility] Comment on above: Performed By: #### 1 [id number] #### [facility] [address] [place] [address] Mucus Ql (Urine sed) TRACE Normal [facility] Comment on above: Performed By: #### 1 [id number] #### [facility] [address] [place] [address] Nitrite Ql (U) Negative Normal Negative [facility] Comment on above: Performed By: #### 1 [id number] #### [facility] [address] [place] [address] pH (U) 6.0 [pH] Invalid Interpretation Code 5.0-9.0 [facility] Comment on above: Performed By: #### 1 [id number] #### [facility] [address] [place] [address] Protein (U) [Mass/Vol] Negative Normal Negative [facility] Comment on above: Performed By: #### 1 7807219 #### [facility] [address] [place] [address] Specific gravity (U) [Rel density] >=1.030 Invalid Interpretation Code 1.005-1.030 [facility] Comment on above: Performed By: #### 1 [id number] #### [facility] [address] [place] [address] Type of Urine collection method Clean Catch Normal [facility] Comment on above: Performed By: #### 1 [id number] #### [facility] [address] [place] [address] Urobilinogen Qn (U) 0.2 {Rajwinder'U}/dL Normal 0.0-1.0 [facility] Comment on above: Performed By: #### 1 [id number] #### [facility] [address] [place] [address] WBC Auto Ql (U) Negative Normal Negative [facility] Comment on above: Performed By: #### 1 [id number] #### [facility] [address] [place] [address] WBC LM.HPF (Urine sed) [#/Area] 0-5 Normal 0-5 [facility] Comment on above: Performed By: #### 1 [id number] #### [facility] [address] [place] [address] URINALYSISOrdered By: Indira calix on 03-24-2023 Bilirubin [...] (Urine sed) 0-3 (03/24/23 3:05 PM) Normal [facility] UA Auto SS Glucose Test strip (U) [Mass/Vol] Negative (03/24/23 3:05 PM) Normal Negative [facility] UA Auto SS Hemoglobin Ql (U) Negative (03/24/23 3:05 PM) Normal Negative [facility] UA Auto SS Ketones (U) [Mass/Vol] Negative (03/24/23 3:05 PM) Normal Negative [facility] UA Auto SS [place].plasma/Lith ium.RBC (Bld) [Mass ratio] 0-3 /HPF Normal [...] [facility] UA Auto SS Urobilinogen Qn (U) 0.5114838 {Rajwinder'U}/dL Normal 0.0 - 1.0 EU/dL [facility] [...] Signed by: Jayson Kemp M.D. Transcribed by: DP Technologist: SRF Technical Comments Radiation Dose: Ka,r in mGy = na DAP = na Normal [facility] eGFRon 03-24-2023 GFR/1.73 sq M.predicted among non-blacks MDRD (S/P/Bld) [Vol rate/Area] 51 mL/min/1.73 m2 Low >=59 [facility] Comment on above: Order Comment: Order added by Discern Expert. Result Comment: Gun Welder dina kidney disease could be indicated at eGFR's of less than 60 mL/min/1.73m2. Kidney failure is indicated at less than 15 mL/min/1.73m2. Performed By: #### 1 [id number], 1624680, 3369475, 9971785, 5609400, 2695798 ####[facility] [address] [place] [address] Physician Orderon 03-23-2023 Physician Order [id number] Normal [facility] XR SHOULDER RT 2V or >on [...] by: VANDANA YUAN Date: 2022-10-07 22:08 Normal [facility] CBC AUTO DIFFon 09-16-2022 BASO # 0.0 103/ul Normal 0.0-0.1 [facility] Comment on above: Performed By: #### C BC ####[facility] [address] [place], [place] [address]VtMehreen Andrade Alvarado Basophils/100 WBC (Bld) 0.5 % Normal 0.2-2.0 [facility] Comment on above: Performed By: #### C BC ####[facility] [address] [place] [address]Dr. Andrade Alvarado EO # 0.1 103/ul Normal 0.0-0.7 [facility] Comment on above: Performed By: #### C BC ####[facility] [address] [place], [place] [address]Dr. Kellengregory Alvarado Eosinophils/100 WBC (Bld) 2.3 % Normal 0.9-7.0 [facility] Comment on above: Performed By: #### C BC ####[facility] [address] [place], [place] [address]Dr. Kellengregory Alvarado Erythrocyte distribution width (RBC) [Ratio] 13.7 % Normal 11.0-15.0 [facility] Comment on above: Performed By: #### C BC ####[facility] [address] [place], [place] [address]Dr. Andrade Alvarado Hematocrit (Bld) [Volume fraction] 32.8 % Critically low 36.0-48.0 [facility] Comment on above: Performed By: #### C BC ####[facility] [address] [place], [place] [address]Dr. Andrade Alvarado Hemoglobin (Bld) [Mass/Vol] 10.9 g/dL Critically low 12.0-16.0 [facility] Comment on above: Performed By: #### C BC ####[facility] [address] [place], [place] [address]Dr. Andrade Alvarado IG # 0.02 10e3/ul Normal 0.00-0.03 [facility] Comment on above: Performed By: #### C BC ####[facility] [address] [place], [place] [address]Dr. Andrade Alvarado IG % 0.5 % Normal 0.0-0.5 [facility] Comment on above: Performed By: #### C BC ####[facility] [address] [place], [place] [address]DrMehreen Alvarado LYMPH # 1.6 103/ul Normal 1.2-3.8 [facility] Comment on above: Performed By: #### C BC ####[facility] [address] [place] [address]Dr. Andrade Alvarado Lymphocytes/100 WBC (Bld) 41.8 % Normal 20.5-60.0 [facility] Comment on above: Performed By: #### C BC ####[facility] [address] [place] [address]Dr. Andrade Alvarado MANUAL DIFF REQ NO Normal [facility] Comment on above: Performed By: #### C BC ####[facility] [address] [place] [address]Dr. Andrade Alvarado MCH (RBC) [Entitic mass] 31.9 pg Normal 26.7-34.0 [facility] Comment on above: Performed By: #### C BC ####[facility] [address] [place], [place] [address]Dr. Andrade Alvarado MCHC (RBC) [Mass/Vol] 33.2 g/dL Normal 29.9-35.2 [facility] Comment on above: Performed By: #### C BC ####[facility] [address] [place] [address]Dr. Andrade Alvarado MCV (RBC) [Entitic vol] 95.9 fL Normal 81.0-99.0 [facility] Comment on above: Performed By: #### C BC ####[facility] [address] [place] [address]Dr. Andrade Alvarado MONO # 0.5 103/ul Normal 0.3-0.8 [facility] Comment on above: Performed By: #### C BC ####[facility] [address] [place], [place] [address]Dr. Andrade Alvarado Monocytes/100 WBC (Bld) 13.1 % Critically high 1.7-12.0 [facility] Comment on above: Performed By: #### C BC ####[facility] [address] [place] [address]Dr. Andrade Alvarado NEUT # 1.6 103/ul Normal 1.4-6.5 [facility] Comment on above: Performed By: #### C BC ####[facility] [address] [place] [address]Dr. Andrade Alvarado Neutrophils/100 WBC (Bld) 41.8 % Critically low 43.0-75.0 [facility] Comment on above: Performed By: #### C BC ####[facility] [address] [place] [address]Dr. Andrade Alvarado Platelet mean volume (Bld) [Entitic vol] 8.8 fL Critically low 9.5-13.5 [facility] Comment on above: Performed By: #### C BC ####[facility] [address] [place] [address]DrMehreen Alvarado PLT 219 103/ul Normal 150-450 [facility] Comment on above: Performed By: #### C BC ####[facility] [address] [place] [address]DrMehreen Alvarado RBC 3.42 106/ul Critically low 4.20-5.40 [facility] Comment on above: Performed By: #### C BC ####[facility] [address] [place] [address]DrMehreen Alvarado WBC 3.9 103/ul Critically low 4.0-11.0 [facility] Comment on above: Performed By: #### C BC ####[facility] [address] [place] [address]Dr. Andrade Alvarado FERRITINon 09-16-2022 Ferritin [Mass/Vol] 292.0 ng/mL Critically high 8.0-252.0 [facility] Comment on above: Performed By: #### F ERR, B12FOL, FETIBC #### [facility] [address] [place] [address] [address] Andrade Alvarado IRON AND TIBCon 09-16-2022 % SATURATION 76.2 % Normal [facility] Comment on above: Performed By: #### F ERR, B12FOL, FETIBC #### [facility] [address] [place] [address] [address] Andrade Alvarado Iron [Mass/Vol] 259.0 ug/dL Critically high 50.0-170.0 [facility] Comment on above: Performed By: #### F ERR, B12FOL, FETIBC #### [facility] [address] [place] [address] [address] Andrade Alvarado TIBC DIRECT 340.0 ug/dL Normal 250.0-450.0 [facility] Comment on above: Performed By: #### F ERR, B12FOL, FETIBC #### [facility] [address] [place] [address] [address] Andrade Alvarado PROF 14(COMP METB)on 023 Albumin [Mass/Vol] 4.0 g/dL Normal 3.4-5.0 [facility] Comment on above: Performed By: #### C MP ####[facility] [address] [place] [address]DrMehreen Alvarado Albumin/Globulin [Mass ratio] 1.3 {ratio} Normal [facility] Comment on above: Performed By: #### C MP ####[facility] [address] [place] [address]Dr. Andrade Alvarado ALP [Catalytic activity/Vol] 47 U/L Normal 46-116 [facility] Comment on above: Performed By: #### C MP ####[facility] [address] [place] [address]Dr. Andrade Alvarado ALT [Catalytic activity/Vol] 23 U/L Normal 14-59 [facility] Comment on above: Performed By: #### C MP ####[facility] [address] [place] [address]Dr. Andrade Alvarado Anion gap [Moles/Vol] 12.1 mmol/L Normal [facility] Comment on above: Performed By: #### C MP ####[facility] [address] [place] [address]Dr. Andrade Alvarado AST [Catalytic activity/Vol] 23 U/L Normal 15-37 [facility] Comment on above: Performed By: #### C MP ####[facility] [address] [place] [address]Dr. Andrade Alvarado Bilirubin [Mass/Vol] 0.4 mg/dL Normal 0.2-1.0 [facility] Comment on above: Performed By: #### C MP ####[facility] [address] [place] [address]Dr. Andrade Alvarado Calcium [Mass/Vol] 9.3 mg/dL Normal 8.5-10.1 [facility] Comment on above: Performed By: #### C MP ####[facility] [address] [place] [address]Dr. Andrade Alvarado Chloride [Moles/Vol] 108 mmol/L Critically high 98-107 [facility] Comment on above: Performed By: #### C MP ####[facility] [address] [place] [address]Dr. Andrade Alvarado CO2 [Moles/Vol] 26.9 mmol/L Normal 21.0-32.0 [facility] Comment on above: Performed By: #### C MP ####[facility] [address] [place], [place] [address]Dr. Andrade Alvarado Creatinine [Mass/Vol] 0.87 mg/dL Normal 0.55-1.02 [facility] Comment on above: Performed By: #### C MP ####[facility] [address] [place] [address]Dr. Kellengregory Christiano EGFR-AF AUSTRIAN >60 Normal >=60 [facility] Comment on above: Performed By: #### C MP ####[facility] [address]es[address] [place], [place] [address]Dr. Kellengregory Christiano EGFR-NON AF AUSTRIAN >60 Normal >=60 [facility] Comment on above: Performed By: #### C MP ####[facility] [address] [place], [place] [address]Dr. Andrade Alvarado Globulin (S) [Mass/Vol] 3.0 g/dL Normal [facility] Comment on above: Performed By: #### C MP ####[facility] [address] [place], [place] [address]Dr. Andrade Alvarado Glucose [Mass/Vol] 102 mg/dL Normal 74-106 [facility] Comment on above: Performed By: #### C MP ####[facility] [address] [place] [address]Dr. Andrade Alvarado Potassium [Moles/Vol] 4.0 mmol/L Normal 3.5-5.1 [facility] Comment on above: Performed By: #### C MP ####[facility] [address] [place] [address]Dr. Andrade Alvarado Protein [Mass/Vol] 7.0 g/dL Normal 6.4-8.2 [facility] Comment on above: Performed By: #### C MP ####[facility] [address] [place], [place] [address]Dr. Andrade Alvarado Sodium [Moles/Vol] 143 mmol/L Normal 136-145 [facility] Comment on above: Performed By: #### C MP ####[facility] [address] [place], [place] [address]Dr. Andrade Alvarado Urea nitrogen [Mass/Vol] 25.0 mg/dL Critically high 7.0-18.0 [facility] Comment on above: Performed By: #### C MP ####[facility] [address] [place], [place] [address]Dr. Andrade Alvarado Urea nitrogen/Creatinine [Mass ratio] 28.7 mg/mg Normal [facility] Comment on above: Performed By: #### C MP ####[facility] [address] [place], [place] [address]Dr. Andrade Alvarado SED RATE WESTERGRENon 2022 SED RATE 11 mm/hr Normal <=30 [facility] Comment on above: Performed By: #### S EDR ####[facility] [address] [place], [place] [address]Dr. Andrade Alvarado VIT B12 AND FOLATEon 023 Cobalamin (Vitamin B12) [Mass/Vol] 249.0 pg/mL Normal 193.0-986.0 [facility] Comment on above: Performed By: #### F ERR, B12FOL, FETIBC #### [facility] [address] [place], [place] [address] Dr. Andrade Alvarado FOLATE 14.00 ng/mL Normal 8.60-58.90 [facility] Comment on above: Performed By: #### F ERR, B12FOL, FETIBC #### [facility] [address] [place] [id number] Andrade Alvarado MG MAMM SCREEN 3D BRENNA CADon 2022 MG MAMM SCREEN 3D BRENNA CAD Patient: RADHA ZAIDI Exam Date: 2022 : 1960 Gender:F Ordering : DR JOHN ASHBY D.O. Admission #: [id number] Family : Order #: [id number] CLICK HERE TO VIEW EXAM RADIOLOGY REPORT [...] prostate cancer at age 72. LOCATION: [facility] BREAST COMPOSITION: Scattered areas fibroglandular [...] M.D. on 06/09/2022 at 15:30 Normal [facility] CBC AUTO DIFFon 05-20-2022 BASO # 0.0 103/ul Normal 0.0-0.1 [facility] Comment on above: Performed By: #### C BC ####[facility] [address] [place] [address]Dr. Andrade Alvarado Basophils/100 WBC (Bld) 1.0 % Normal 0.2-2.0 [facility] Comment on above: Performed By: #### C BC ####[facility] [address] [place], [place] [address]Dr. Andrade Alvarado EO # 0.1 103/ul Normal 0.0-0.7 [facility] Comment on above: Performed By: #### C BC ####[facility] [address] [place], [place] [address]Dr. Andrade Alvarado Eosinophils/100 WBC (Bld) 2.5 % Normal 0.9-7.0 [facility] Comment on above: Performed By: #### C BC ####[facility] [address] [place], [place] [address]Dr. Andrade Alvarado Erythrocyte distribution width (RBC) [Ratio] 13.0 % Normal 11.0-15.0 [facility] Comment on above: Performed By: #### C BC ####[facility] [address] [place], [place] [address]Dr. Andrade Alvarado Hematocrit (Bld) [Volume fraction] 34.9 % Critically low 36.0-48.0 [facility] Comment on above: Performed By: #### C BC ####[facility] [address] [place], [place] [address]Dr. Andrade Alvarado Hemoglobin (Bld) [Mass/Vol] 11.6 g/dL Critically low 12.0-16.0 [facility] Comment on above: Performed By: #### C BC ####[facility] [address] [place], [place] [address]Dr. Andrade Alvarado IG # 0.02 10e3/ul Normal 0.00-0.03 [facility] Comment on above: Performed By: #### C BC ####[facility] [address] [place], [place] [address]Dr. Andrade Alvarado IG % 0.5 % Normal 0.0-0.5 [facility] Comment on above: Performed By: #### C BC ####[facility] [address] [place], [place] [address]Dr. Andrade Christiano LYMPH # 1.9 103/ul Normal 1.2-3.8 [facility] Comment on above: Performed By: #### C BC ####[facility] [address] [place] [id number]. Andrade Christiano Lymphocytes/100 WBC (Bld) 46.1 % Normal 20.5-60.0 [facility] Comment on above: Performed By: #### C BC ####[facility] [address] [place] [address]Dr. Kellengregory Alvarado MANUAL DIFF REQ NO Normal [facility] Comment on above: Performed By: #### C BC ####[facility] [address] [place] [address]Dr. Andrade Christiano MCH (RBC) [Entitic mass] 32.3 pg Normal 26.7-34.0 [facility] Comment on above: Performed By: #### C BC ####[facility] [address] [place] [address]Dr. Andrade Christiano MCHC (RBC) [Mass/Vol] 33.2 g/dL Normal 29.9-35.2 [facility] Comment on above: Performed By: #### C BC ####[facility] [address] [place], [place] [address]Dr. Andrade Alvarado MCV (RBC) [Entitic vol] 97.2 fL Normal 81.0-99.0 [facility] Comment on above: Performed By: #### C BC ####[facility] [address] [place] [address]Dr. Kellengregory Christiano MONO # 0.5 103/ul Normal 0.3-0.8 [facility] Comment on above: Performed By: #### C BC ####[facility] [address] [place] [address]Dr. Andrade Alvarado Monocytes/100 WBC (Bld) 13.5 % Critically high 1.7-12.0 [facility] Comment on above: Performed By: #### C BC ####[facility] [address] [place], [place] [address]Dr. Andrade Alvarado NEUT # 1.5 103/ul Normal 1.4-6.5 [facility] Comment on above: Performed By: #### C BC ####[facility] [address] [place] [address]Dr. Andrade Alvarado Neutrophils/100 WBC (Bld) 36.4 % Critically low 43.0-75.0 [facility] Comment on above: Performed By: #### C BC ####[facility] [address] [place] [address]Dr. Andrade Alvarado Platelet mean volume (Bld) [Entitic vol] 8.9 fL Critically low 9.5-13.5 [facility] Comment on above: Performed By: #### C BC ####[facility] [address] [place] [address]Dr. Andrade Alvarado PLT 237 103/ul Normal 150-450 [facility] Comment on above: Performed By: #### C BC ####[facility] [address] [place] [address]Dr. Andrade Alvarado RBC 3.59 106/ul Critically low 4.20-5.40 [facility] [facility] Comment on above: Performed By: #### C BC ####[facility] [address] [place] [address]Dr. Andrade Alvarado WBC 4.0 103/ul Normal 4.0-11.0 [facility] Comment on above: Performed By: #### C BC ####[facility] [address] [place] [address]Dr. Andrade Alvarado CRPon 05-20-2022 CRP [Mass/Vol] mg/L Normal <=1.0 The [facility] Comment on above: Performed By: #### C MP, CRP, TSH ####[facility] [address] [place] [address]Dr. Andrade Christiano PROF 14(COMP METB)on Albumin [Mass/Vol] 4.2 g/dL Normal 3.4-5.0 [facility] Comment on above: Performed By: #### C MP, CRP, TSH #### [facility] Laboratory [address] [address] [address] Andrade Alvarado Albumin/Globulin [Mass ratio] 1.3 {ratio} Normal [facility] Comment on above: Performed By: #### C MP, CRP, TSH #### [facility] Laboratory [address] [address] [address] Andrade Alvarado ALP [Catalytic activity/Vol] 50 U/L Normal 46-116 [facility] Comment on above: Performed By: #### C MP, CRP, TSH #### [facility] Laboratory [address] [address] [address] Andrade Alvarado ALT [Catalytic activity/Vol] 23 U/L Normal 14-59 [facility] Comment on above: Performed By: #### C MP, CRP, TSH #### [facility] Laboratory [address] [address] [address] Andrade Alvarado Anion gap [Moles/Vol] 11.3 mmol/L Normal [facility] Comment on above: Performed By: #### C MP, CRP, TSH #### [facility] Laboratory [address] [address] [address] Andrade Alvarado AST [Catalytic activity/Vol] 23 U/L Normal 15-37 [facility] Comment on above: Performed By: #### C MP, CRP, TSH #### [facility] Laboratory [address] [address] [address] Andrade Alvarado Bilirubin [Mass/Vol] 0.5 mg/dL Normal 0.2-1.0 [facility] Comment on above: Performed By: #### C MP, CRP, TSH #### [facility] Laboratory [address] [address] [address] Andrade Alvarado Calcium [Mass/Vol] 9.3 mg/dL Normal 8.5-10.1 The [facility] Comment on above: Performed By: #### C MP, CRP, TSH #### [facility] Laboratory [address] [address] [address] Andrade Alvarado Chloride [Moles/Vol] 104 mmol/L Normal 98-107 [facility] Comment on above: Performed By: #### C MP, CRP, TSH #### [facility] Laboratory [address] [address] [address] Andrade Alvarado CO2 [Moles/Vol] 27.2 mmol/L Normal 21.0-32.0 [facility] Comment on above: Performed By: #### C MP, CRP, TSH #### [facility] Laboratory [address] [address] [address] Andrade Alvarado Creatinine [Mass/Vol] 0.99 mg/dL Normal 0.55-1.02 [facility] Comment on above: Performed By: #### C MP, CRP, TSH #### [facility] Laboratory [address] [address] [address] Andrade Alvarado EGFR-AF AUSTRIAN >60 Normal >=60 [facility] Comment on above: Performed By: #### C MP, CRP, TSH #### [facility] Laboratory [address] [address] [address] Andrade Alvarado EGFR-NON AF AUSTRIAN 57 mL/min/1.73m2 Critically low >=60 [facility] Comment on above: Performed By: #### C MP, CRP, TSH #### [facility] Laboratory [address] [address] [address] Andrade Alvarado Globulin (S) [Mass/Vol] 3.3 g/dL Normal [facility] Comment on above: Performed By: #### C MP, CRP, TSH #### [facility] Laboratory [address] [address] [address] Andrade Alvarado Glucose [Mass/Vol] 97 mg/dL Normal 74-106 [facility] Comment on above: Performed By: #### C MP, CRP, TSH #### [facility] Laboratory [address] [address] [address] Andrade Alvarado Potassium [Moles/Vol] 3.5 mmol/L Normal 3.5-5.1 [facility] Comment on above: Performed By: #### C MP, CRP, TSH #### [facility] Laboratory [address] [address] [address] Andrade Alvarado Protein [Mass/Vol] 7.5 g/dL Normal 6.4-8.2 [facility] Comment on above: Performed By: #### C MP, CRP, TSH #### [facility] Laboratory [address] [address] [address] Andrade Alvarado Sodium [Moles/Vol] 139 mmol/L Normal 136-145 The [facility] Comment on above: Performed By: #### C MP, CRP, TSH #### [facility] Laboratory [address] [address] [address] Andrade Alvarado Urea nitrogen [Mass/Vol] 22.0 mg/dL Critically high 7.0-18.0 [facility] Comment on above: Performed By: #### C MP, CRP, TSH #### [facility] Laboratory [address] [place] [address] Dr. Andrade Alvarado Urea nitrogen/Creatinine [Mass ratio] 22.2 mg/mg Normal [facility] Comment on above: Performed By: #### C MP, CRP, TSH #### [facility] Laboratory [address] [place] [address] Dr. Andrade Alvarado [facility] 22 mm/hr Normal <=30 [facility] Comment on above: Performed By: #### S EDR ####[facility] [address] [place] [address]Dr. Andrade Alvarado TSHon 05-20-2022 TSH 1.373 uIU/mL Normal 0.358-3.740 [facility] Comment on above: Performed By: #### C MP, CRP, TSH #### [facility] Laboratory [address] [address] [address] Andrade Alvarado CBC AUTO DIFFon 02-16-2022 BASO # 0.0 103/ul Normal 0.0-0.1 [facility] Comment on above: Performed By: #### C BC ####[facility] [address] [place] [address]Dr. Andrade Alvarado Basophils/100 WBC (Bld) 0.9 % Normal 0.2-2.0 [facility] Comment on above: Performed By: #### C BC ####[facility] [address] [place] [address]Dr. Andrade Alvarado EO # 0.1 103/ul Normal 0.0-0.7 [facility] Comment on above: Performed By: #### C BC ####[facility] [address] [place] [address]Dr. Andrade Alvarado Eosinophils/100 WBC (Bld) 2.3 % Normal 0.9-7.0 [facility] Comment on above: Performed By: #### C BC ####[facility] [address] [place], [place] [address]Dr. Andrade Alvarado Erythrocyte distribution width (RBC) [Ratio] 12.6 % Normal 11.0-15.0 [facility] Comment on above: Performed By: #### C BC ####[facility] [address] [place], [place] [address]Dr. Andrade Alvarado Hematocrit (Bld) [Volume fraction] 37.8 % Normal 36.0-48.0 [facility] Comment on above: Performed By: #### C BC ####[facility] [address] [place], [place] [address]Dr. Andrade Alvarado Hemoglobin (Bld) [Mass/Vol] 12.3 g/dL Normal 12.0-16.0 [facility] Comment on above: Performed By: #### C BC ####[facility] [address] [place], [place] [address]Dr. Andrade Alvarado IG # 0.02 10e3/ul Normal 0.00-0.03 [facility] Comment on above: Performed By: #### C BC ####[facility] [address] [place], [place] [address]Dr. Andrade Alvarado IG % 0.5 % Normal 0.0-0.5 [facility] Comment on above: Performed By: #### C BC ####[facility] [address] [place], [place] [address]Dr. Andrade Alvarado LYMPH # 2.1 103/ul Normal 1.2-3.8 [facility] Comment on above: Performed By: #### C BC ####[facility] [address] [place] [address]Dr. Andrade Alvarado Lymphocytes/100 WBC (Bld) 48.3 % Normal 20.5-60.0 [facility] Comment on above: Performed By: #### C BC ####[facility] [address] [place] [address]Dr. Andrade Alvarado MANUAL DIFF REQ NO Normal [facility] Comment on above: Performed By: #### C BC ####[facility] [address] [place] [address]Dr. Andrade Alvarado MCH (RBC) [Entitic mass] 31.9 pg Normal 26.7-34.0 [facility] Comment on above: Performed By: #### C BC ####[facility] [address] [place] [address]Dr. Andrade Alvarado MCHC (RBC) [Mass/Vol] 32.5 g/dL Normal 29.9-35.2 [facility] Comment on above: Performed By: #### C BC ####[facility] [address] [place] [address]Dr. Andrade Alvarado MCV (RBC) [Entitic vol] 97.9 fL Normal 81.0-99.0 [facility] Comment on above: Performed By: #### C BC ####[facility] [address] [place] [address]Dr. Andrade Christiano MONO # 0.5 103/ul Normal 0.3-0.8 [facility] Comment on above: Performed By: #### C BC ####[facility] [address] [place] [address]Dr. Andrade Alvarado Monocytes/100 WBC (Bld) 11.2 % Normal 1.7-12.0 [facility] Comment on above: Performed By: #### C BC ####[facility] [address] [place] [address]Dr. Andrade Alvarado NEUT # 1.6 103/ul Normal 1.4-6.5 [facility] Comment on above: Performed By: #### C BC ####[facility] [address] [place], [place] [address]Zh. Andrade Alvarado Neutrophils/100 WBC (Bld) 36.8 % Critically low 43.0-75.0 [facility] Comment on above: Performed By: #### C BC ####[facility] [address] [place], [place] [address]Rd. Andrade Alvarado Platelet mean volume (Bld) [Entitic vol] 9.9 fL Normal 9.5-13.5 [facility] Comment on above: Performed By: #### C BC ####[facility] [address] [place] [address]Dr. Andrade Alvarado PLT 213 103/ul Normal 150-450 [facility] Comment on above: Performed By: #### C BC ####[facility] [address] [place] [address]Dr. Andrade Alvarado RBC 3.86 106/ul Critically low 4.20-5.40 [facility] Comment on above: Performed By: #### C BC ####[facility] [address] [place] [address]Dr. Andrade Alvarado WBC 4.4 103/ul Normal 4.0-11.0 [facility] Comment on above: Performed By: #### C BC ####[facility] [address] [place] [address]DrMehreen Alvarado PROF 14(COMP METB)on 022 Albumin [Mass/Vol] 4.2 g/dL Normal 3.4-5.0 [facility] Comment on above: Performed By: #### C MP #### [facility] Laboratory [address] [address] [address] Andrade Alvardao Albumin/Globulin [Mass ratio] 1.3 {ratio} Normal [facility] Comment on above: Performed By: #### C MP #### [facility] Laboratory [address] [address] [address] Andrade Alvarado ALP [Catalytic activity/Vol] 61 U/L Normal 46-116 [facility] Comment on above: Performed By: #### C MP #### [facility] Laboratory [address] [address] [address] Andrade Alvarado ALT [Catalytic activity/Vol] 23 U/L Normal 14-59 [facility] Comment on above: Performed By: #### C MP #### [facility] Laboratory [address] [place] [address] Dr. Andrade Alvarado Anion gap [Moles/Vol] 15.5 mmol/L Normal [facility] Comment on above: Performed By: #### C MP #### [facility] Laboratory [address] [address] [address] Andrade Alvarado AST [Catalytic activity/Vol] 20 U/L Normal 15-37 [facility] Comment on above: Performed By: #### C MP #### [facility] Laboratory [address] [place] [address] Dr. Andrade Alvarado Bilirubin [Mass/Vol] 0.5 mg/dL Normal 0.2-1.0 [facility] Comment on above: Performed By: #### C MP #### [facility] Laboratory [address] [place] [address] Dr. Andrade Alvarado Calcium [Mass/Vol] 9.1 mg/dL Normal 8.5-10.1 [facility] Comment on above: Performed By: #### C MP #### [facility] Laboratory [address] [place] [address] Dr. Andrade Alvarado Chloride [Moles/Vol] 106 mmol/L Normal 98-107 [facility] Comment on above: Performed By: #### C MP #### [facility] Laboratory [address] [place] [address] Dr. Andrade Alvarado CO2 [Moles/Vol] 25.6 mmol/L Normal 21.0-32.0 [facility] Comment on above: Performed By: #### C MP #### [facility] Laboratory [address] [place] [address] Dr. Andrade Alvarado Creatinine [Mass/Vol] 0.97 mg/dL Normal 0.55-1.02 [facility] Comment on above: Performed By: #### C MP #### [facility] Laboratory [address] [place] [address] Dr. Andrade Alvarado EGFR-AF AUSTRIAN >60 Normal >=60 [facility] Comment on above: Performed By: #### C MP #### [facility] Laboratory [address] [address] [address] Andrade Alvarado EGFR-NON AF AUSTRIAN 58 mL/min/1.73m2 Critically low >=60 [facility] Comment on above: Performed By: #### C MP #### [facility] [address] [address] [address] Andrade Alvarado Globulin (S) [Mass/Vol] 3.2 g/dL Normal [facility] Comment on above: Performed By: #### C MP #### [facility] Laboratory [address] [address] [address] Andrade Alvarado Glucose [Mass/Vol] 91 mg/dL Normal 74-106 [facility] Comment on above: Performed By: #### C MP #### [facility] Laboratory [address] [address] [address] Andrade Alvarado Potassium [Moles/Vol] 4.1 mmol/L Normal 3.5-5.1 [facility] Comment on above: Performed By: #### C MP #### [facility] Laboratory [address] [place] [address] Dr. Andrade Alvarado Protein [Mass/Vol] 7.4 g/dL Normal 6.4-8.2 [facility] Comment on above: Performed By: #### C MP #### [facility] Laboratory [address] [address] [address] Andrade Alvarado Sodium [Moles/Vol] 143 mmol/L Normal 136-145 [facility] Comment on above: Performed By: #### C MP #### [facility] Laboratory [address] [address] [address] Andrade Alvarado Urea nitrogen [Mass/Vol] 18.0 mg/dL Normal 7.0-18.0 [facility] Comment on above: Performed By: #### C MP #### [facility] Laboratory [address] [address] [address] Andrade Alvarado Urea nitrogen/Creatinine [Mass ratio] 18.6 mg/mg Normal [facility] Comment on above: Performed By: #### C MP #### [facility] Laboratory [address] [address] [address] Andrade Alvarado SED RATE [facility] 2021 SED RATE 15 mm/hr Normal <=30 [facility] Comment on above: Performed By: #### S EDR #### [facility] Laboratory [address] [address] [address] Andrade Alvarado KNEE LEFT 3 Son 04-25-2020 KNEE LEFT 3 S [facility] Department of Radiology [address] [place] [address] Patient Name: RADHA ZAIDI : [...] visible. Electronically signed: Eliezer Cam. Transcribed by: [email or web address], User Resident: Electronically Signed by: ELIEZER CAM @ 04/25/2020 11:44 AM Normal [facility] Comment on above: Order Comment: Evalu ate TIBIA FIBULA LEFTon 03-27-20 20 TIBIA FIBULA LEFT [facility] Department of Radiology [address] [place] [id number] Patient Name: RADHA ZAIDI : 1960 Sex: F Age: Race: White Pt. Location: Patient Status: Ordered Date: 03/27/2020 8:05:00 AM Completed Date: 03/27/2020 08:35 AM Requesting Provider: CHARLI LUKE Attending Provider: Report Copy To: Signs & Symptoms: S82.832A [facility] fracture of upper and lower end of left fibula, init I10 History: [place] Comments: , , , Ordering Provider - [...] healing Electronically signed: Crissy Dubon. Transcribed by: [email or web address], User Resident: Electronically Signed by: CRISSY DUBON @ 03/27/2020 09:11 AM Normal [facility] Comment on above: Order Comment: Evalu ate Operative Reporton 0 Operative Report MR#: [id number] S [facility] Pt. Name: Radha Zaidi Room #: 0C [...] nonunion revision. DRAINS: None. SPECIMENS: None. IMPLANTS: Viette Gamma BSM putty bone substitute. ANESTHESIA: General. [...] were bluntly retracted. We then used a Irving as well as a hemostat to debride [...] Paniagua MD Date Trans: 03/13/2020 02:26 A/bryson [id number] cc: John Ashby D.O. [address] [place] [phone] Normal [facility] KNEE LEFT 1 OR 2 Son 03-12 KNEE LEFT 1 OR 2 S [facility] Department of Radiology [address] [place] [phone] Patient Name: RADHA ZAIDI : 1960 Sex: F Age: Race: White Pt. Location: [facility] Patient Status: Ordered Date: 03/12/2020 12:00:00 [...] fracture. Electronically signed: Rahul James. Transcribed by: [email or web address], User Resident: Electronically Signed by: RAHUL JAMES @ 03/12/2020 03:20 PM Normal [facility] Comment on above: Order Comment: Evalu ate POC GLUCOSE LABon 03-12-2020 Glucose [Mass/Vol] 103 mg/dL High 70-100 [facility] Comment on above: Performed By: #### 8 [id number] ####[facility] [address] *MRSA/MSSA DNA NASALon 03-08 *MRSA/MSSA DNA NASAL Clinical Report: (D) Specimen: NASAL SWAB Collected: 03/08/2020 14:02 Status: Final Last Updated: 03/09/2020 09:30 MSSA DNA (Final) Negative MRSA DNA (Final) Negative Normal [facility] Comment on above: Performed By: #### 3 [id number] ####[facility] [address] *SARS-CoV-2 COVID-19on 03-08 [id number] Not Detected Normal Not Detected [facility] Comment on above: Order Comment: The A ptima SARS-CoV-2 assay is a nucleic acid amplification test intended for the qualitative detection of RNA from SARS-CoV-2 isolated and purified from nasopharyngeal (JOINTER OPERATOR),oropharyngeal (OP), nasal swab, sputum, and bronchoalveolar lavage (BAL) specimens from patients with signs and symptoms of infection who are suspected of COVID-19. Results are for the identification of SARS-CoV-2 RNA. The SARS-CoV-2 RNA is generally detectable during the acute phase of infection. The [employer]ptima SARS-CoV-2 Assay on the [employer] Fusion system is intended for use by laboratory personnel specifically instructed and trained in the operation of the [employer] Fusion system. The Aptima SARS-CoV-2 assay is [...] By: #### 3 [id number] #### [facility] [address] APTTon 03-08-2020 aPTT Coag (Bld) [Time] 26.9 s Normal 25.0-35.0 [facility] Comment on above: Result Comment: ALL RESULTS [...] THIS PURPOSE. Performed By: #### 5 [id number], [id number] ####[facility] [place] [address], [facility] BASIC METABOLIC PANELon 02-09 Calcium [Mass/Vol] 9.7 mg/dL Normal 8.6-10.3 [facility] Comment on above: Performed By: #### 0 0071 #### [facility] [address] [facility] [place] [address], [facility] Chloride [Moles/Vol] 103 mmol/L Normal 98-107 [facility] Comment on above: Performed By: #### 0 0071 #### [facility] [address] [place] [address], [facility] CO2 [Moles/Vol] 31 mmol/L Normal 21-31 [facility] Comment on above: Performed By: #### 0 0071 #### [facility] [address] [place] [address], [facility] Creatinine [Mass/Vol] 0.87 mg/dL Normal 0.60-1.20 [facility] Comment on above: Performed By: #### 0 0071 #### [facility] [address] [place] [address], [facility] GFR/1.73 sq M predicted among blacks MDRD (S/P/Bld) [Vol rate/Area] mL/min/{1.73_m2} Normal >60 [facility] Comment on above: Performed By: #### 0 [id number] #### [facility] [address] [facility] [address], [facility] GFR/1.73 sq M predicted among non-blacks MDRD (S/P/Bld) [Vol rate/Area] mL/min/{1.73_m2} Normal >60 [facility] Comment on above: Performed By: #### 0 [id number] #### [facility] [address] [place] [id number], [facility] Glucose [Mass/Vol] 106 mg/dL High 70-100 [facility] Comment on above: Performed By: #### 0 [id number] #### [facility] [address] [place] [address], [facility] Potassium [Moles/Vol] 4.3 mmol/L Normal 3.5-5.1 [facility] Comment on above: Performed By: #### 0 0071 #### [facility] [address] [facility]. [address] Sodium [Moles/Vol] 141 mmol/L Normal 136-145 [facility] Comment on above: Performed By: #### 0 0071 #### [facility] [address] [facility] [place] [address], [facility] Urea nitrogen [Mass/Vol] 14 mg/dL Normal 7-25 [facility] Comment on above: Performed By: #### 0 0071 #### [facility] [address] CBC W/DIFFon 03-08-2020 ABS BASOPHILS 0.1 10*3/uL Normal 0.0-0.2 [facility] Comment on above: Performed By: #### 5 0103 ####[facility] [address] ABS IMM GRANS 0.0 10*3/uL Normal 0.0-0.2 [facility] Comment on above: Performed By: #### 5 0103 ####[facility] [address] ABS NEUTROPHILS 3.4 10*3/uL Normal 1.6-7.6 [facility] Comment on above: Performed By: #### 5 0103 ####[facility] [address] Basophils/100 WBC (Bld) 0.8 % Normal 0.0-1.0 [facility] Comment on above: Performed By: #### 5 0103 ####[facility] [place] [address], [facility] Eosinophils (Bld) [#/Vol] 0.7 10*3/uL High 0.0-0.5 [facility] Comment on above: Performed By: #### 5 0103 ####[facility] [place] [address], [facility] Eosinophils/100 WBC (Bld) 9.5 % High 0.0-6.0 [facility] Comment on above: Performed By: #### 5 0103 ####[facility].[address] Erythrocyte distribution width (RBC) [Ratio] 13.6 % Normal 11.5-15.0 [facility] Comment on above: Performed By: #### 5 0103 ####[facility].[address] Hematocrit (Bld) [Volume fraction] 42.5 % Normal 36.0-45.0 [facility] Comment on above: Performed By: #### 3 ####[facility] [address] Hemoglobin (Bld) [Mass/Vol] 13.7 g/dL Normal 12.0-15.0 [facility] Comment on above: Performed By: #### 5 3 ####[facility] [address] IMMATURE GRANS 0.3 % Normal 0.0-1.0 [facility] Comment on above: Performed By: #### 5 3 ####[facility].[address] Lymphocytes (Bld) [#/Vol] 2.7 10*3/uL Normal 1.2-4.0 [facility] Comment on above: Performed By: #### 5 3 ####[facility] [address] Lymphocytes/100 WBC (Bld) 35.1 % Normal 20.0-45.0 [facility] Comment on above: Performed By: #### 5 3 ####[address] MCH (RBC) [Entitic mass] 31.2 pg Normal 27.0-33.0 [facility] Comment on above: Performed By: #### 5 0103 ####[facility].[address] MCHC (RBC) [Mass/Vol] 32.2 g/dL Normal 32.0-35.0 [facility] Comment on above: Performed By: #### 5 0103 ####[facility].[address] MCV (RBC) [Entitic vol] 96.8 fL Normal 82.0-98.0 [facility] Comment on above: Performed By: #### 5 0103 ####[facility] [address] Monocytes (Bld) [#/Vol] 0.8 10*3/uL Normal 0.1-1.0 [facility] Comment on above: Performed By: #### 5 0103 ####[facility].[address] MONOS 9.8 % Normal 5.0-12.0 [facility] Comment on above: Performed By: #### 5 0103 ####[facility] [address] Neutrophils/100 WBC (Bld) 44.5 % Normal 40.0-72.0 [facility] Comment on above: Performed By: #### 5 3 ####[facility] [address] Nucleated RBC/100 WBC (Bld) [Ratio] 0 % Normal 0-0 [facility] Comment on above: Performed By: #### 5 3 ####[facility].[address] PLAT CNT 230 10*3/uL Normal 150-400 [facility] Comment on above: Performed By: #### 5 0103 ####[facility].[address] RBC (Bld) [#/Vol] 4.39 10*6/uL Normal 3.80-5.00 [facility] Comment on above: Performed By: #### 5 0103 ####[facility].[address] WBC (Bld) [#/Vol] 7.72 10*3/uL Normal 4.00-10.60 [facility] Comment on above: Performed By: #### 5 0103 ####[facility].[address] PROTHROMBIN TIMEon 0 INR Coag (PPP) [Relative time] 0.99 {INR} Normal 0.91-1.16 [facility] Comment on above: Result Comment: ACCC P [...] CHEST 1995;108:231S-246S. Performed By: #### 5 6101, 86876 #### [facility] [address] [place] [address], [facility] PT Coag (PPP) [Time] 13.1 s Normal 12.3-14.8 [facility] Comment on above: Result Comment: ALL RESULTS MUST BE INTERPRETED WITH RESPECT TO BLOOD DRAWING ARTIFACT OR DILUTION ERROR OF ANTICOAGULANT AT THE TIME OF SAMPLING. Performed By: #### 5 6101, 13494 #### [facility] [address] [place] [address], [facility] ALBUMIN BLOODon 02-04-2020 Albumin [Mass/Vol] 4.5 g/dL Normal 3.5-5.7 [facility] Comment on above: Performed By: #### 3 0728, 25560, 06497, 86192, 18628 #### [facility] [address] [place] [address], [facility] BASIC METABOLIC PANELon 01-09 Calcium [Mass/Vol] 9.5 mg/dL Normal 8.6-10.3 [facility] Comment on above: Performed By: #### 3 0728, 37144, 27887, 70200, 95117 #### [facility] [address] [place] [address], [facility] Chloride [Moles/Vol] 105 mmol/L Normal 98-107 [facility] Comment on above: Performed By: #### 3 0728, 20623, 37686, 70636, 17431 #### [facility] [address] [place] [address], [place] CO2 [Moles/Vol] 27 mmol/L Normal 21-31 [facility] Comment on above: Performed By: #### 3 0728, 25335, 02100, 39220, 76841 #### [facility] [address] [place] [address], [place] Creatinine [Mass/Vol] 0.81 mg/dL Normal 0.60-1.20 [facility] Comment on above: Performed By: #### 3 0728, 42859, 39276, 40539, 00774 #### [facility] [address] [place] [address], [place] GFR/1.73 sq M predicted among blacks MDRD (S/P/Bld) [Vol rate/Area] mL/min/{1.73_m2} Normal >60 [facility] Comment on above: Performed By: #### 3 0728, 47855, 39429, 35967, 88603 #### [facility] [address] [place] [address], [place] GFR/1.73 sq M predicted among non-blacks MDRD (S/P/Bld) [Vol rate/Area] mL/min/{1.73_m2} Normal >60 [facility] Comment on above: Performed By: #### 3 0728, 06645, 60331, 75917, 10762 #### [facility] [address] [place] [address], [place] Glucose [Mass/Vol] 115 mg/dL High 70-100 [facility] Comment on above: Performed By: #### 3 0728, 61215, 94751, 34110, 42455 #### [facility] [address] [place] [address], [place] Potassium [Moles/Vol] 3.9 mmol/L Normal 3.5-5.1 [facility] Comment on above: Performed By: #### 3 0728, 28081, 80727, 45345, 07638 #### [facility] [address] [place] [address], [place] Sodium [Moles/Vol] 140 mmol/L Normal 136-145 [facility] Comment on above: Performed By: #### 3 0728, 78845, 30176, 35152, 19302 #### [facility] [address] [place] [address], [place] Urea nitrogen [Mass/Vol] 20 mg/dL Normal 7-25 [facility] Comment on above: Performed By: #### 3 0728, 15386, 61392, 89437, 13065 #### [facility]. [address] PREALBUMINon 02-04-2020 Prealbumin [Mass/Vol] 24.0 mg/dL Normal 17.0-34.0 [facility] Comment on above: Performed By: #### 3 0728, 81182, 68269, 66296, 49207 #### [facility] [address] TIBIA FIBULA LEFTon 02-04-20 20 TIBIA FIBULA LEFT [facility] Department of Radiology [address] [place] [id number] Patient Name: RADHA ZAIDI : 1960 [...] indicated. Electronically signed: Eliezer Randolph. Transcribed by: [email or web address], User Resident: Electronically Signed by: ELIEZER RANDOLPH @ 02/04/2020 10:34 AM Normal [facility] TRANSFERRINon 02-04-2020 Transferrin [Mass/Vol] 270 mg/dL Normal 203-362 [facility] Comment on above: Performed By: #### 3 0728, 84147, 25201, 86088, 46649 #### [facility]. [address] VITAMIN D 25-HYDROXYon 02-03 VITAMIN D 25-OH 38.5 ng/mL Normal 30.0-80.0 [facility] Comment on above: Result Comment: >80. 0 Toxicity possible Performed By: #### 3 0728, 98846, 15368, 83086, 02586 #### [facility]. [address] 07-06-2018 L ------- Specimen: [id number] Received: 07/06/181205 Status: JONI Lazaro Num: [id number] Spec Type: Surgical Subm Dr: Tash Resendez MD Tissues: A Finger - Amputation, Non-traumatic (LT SMALL FINGER) Procedures: HE Stain/2, Gross/Micro L4, Decal Patient Age/Sex Location Account Attending Physician Radha Zaidi 58/F [place] [id number] Tash Resendez MD SPEC NUM: [id number] RECD: 07/06/18 STATUS: JONI LAZARO NUM: [id number] RUSS: 07/06/18- [facility] DR: Tash Resendez MD ENTERED: 07/06/[address] [facility] [address]: JULIUS TYPE: Surgical DEPT: S [...] reveals yellow, viable appearing bony cut surfaces. Case Advocate sections are submitted in two cassettes, decal. (ENRIKE/NAA/lina) Specimen: [id number] Received: 07/06/18 Status: JONI Leti Num: [id number] Spec Type: Surgical Subm Dr: Tash Resendez MD Tissues: A Finger - Amputation, Non-traumatic (LT SMALL FINGER) Procedures: HE Stain/2, Gross/Micro L4, Decal Patient: Radha Zaidi [id number] (Continued) Specimen: [id number] Received: 07/06/18 (Continued) Signed (signature on file) Harsh Jo MD 08/14/18 1503 Specimen: [id number] Received: 07/06/18 Status: JONI Lazaro Num: [id number] Spec Type: Surgical Subm Dr: Tash Resendez MD Tissues: A Finger - Amputation, Non-traumatic (LT SMALL FINGER) Procedures: HE Stain/2, Gross/Micro L4, Decal Patient: Radha Zaidi [id number] (Continued) Specimen: Received: 07/06/18 (Continued) Microscopic Two glass slides with H E stained material have been examined. The microscopic findings support the above pathologic diagnosis. [id number], [id number] A. - - LT SMALL FINGER Specimen: [id number] Received: 07/06/18 Status: JONI Lazaro Num: [id number] Spec Type: Surgical Subm Dr: Tash Resendez MD Tissues: A Finger - Amputation, Non-traumatic (LT SMALL FINGER) Procedures: VIRAL Stain/2, Gross/Micro L4, Decal Patient: Radha Zaidi [id number] (Continued) Signed (signature on file) Harsh Jo MD 08/14/[address] [facility] FLUORO FOR SURGICAL PROCEDUR ESon 10-20-2017 FLUORO FOR SURGICAL PROCEDURES Exam: FLUORO FOR SURGICAL PROCEDURESHistory: ACDF Fusion Findings: Fluoroscopy time was 70 seconds A total of 19 fluoroscopic images were obtained by Dr. Cheng during the anterior cervical discectomy in the lower cervical spine.IMPRESSION: Impression: Fluoroscopic assistance provided for operative guidance.Interpreted by:DIANA Lealigned by:Eugene Cancino MD10/20/17inal result Normal [facility] Basic Metabolic Panelon Anion gap 15 mmol/L Critically high 7-13 [facility] Calcium 9.6 mg/dL Normal 8.6-10.[address] [facility] Chloride 102 mmol/L Normal 98-[address] [facility] CO2 23 mmol/L Normal 22-29 [facility] Creatinine 0.54 mg/dL Normal 0.50-0.90 [facility] eGFR (black) mL/min/{1.73_m2} Normal >60 [facility] Comment on above: Result Comment: >60 mL/min/1.73m2 EGFR, calc. for ages 18 and older using theMDRD formula (not corrected for weight), is valid for stablerenal function. eGFR (MDRD) mL/min/{1.73_m2} Normal >60 [facility] Comment on above: Result Comment: >60 mL/min/1.73m2 EGFR, calc. for ages 18 and older using theMDRD formula (not corrected for weight), is valid for stablerenal function. Glucose mass conc 97 mg/dL Normal 74-109 [facility] Potassium molar conc 4.8 mmol/L Normal 3.5-5.[address] [facility] Sodium 140 mmol/L Normal 132-[address] [facility] Urea nitrogen 14 mg/dL Normal 6-20 [facility] CBC With Platelet No Differe ntialon 10-13-2017 Erythrocyte distribution width Auto Ratio (RBC) 13.3 % Normal 11.5-14.5 [facility] Erythrocytes (RBC) 4.96 10*6/uL Normal 4.20-5.40 [facility] Hematocrit (HCT) 47.1 % Critically high 37.0-47.0 [facility] Hemoglobin mass conc (Bld) 16.2 g/dL Critically high 12.0-16.[address] [facility] MCH 32.7 pg Critically high 27.0-31.[address] [facility] MCHC mass conc (RBC) 34.4 % Normal 33.0-37.[address] [facility] MCV 95.0 fL Normal 82.0-100.[address] [facility] Platelets 223 10*3/uL Normal 130-[address] [facility] WBC (Leukocytes) 6.2 10*3/uL Normal 4.8-10.[address] [facility] Culture, MRSA Screenon 10-13 Culture, MRSA Screen ORDERED BY: VITO STALLWORTH: Nares Nose COLLECTED: 10/13/17 13:18ANTIBIOTICS AT [facility].: RECEIVED : 10/13/17 13:18Culture, MRSA Screen FINAL 10/14/17 13:59 No MRSA isolated Normal [facility] Partial Thromboplastin Timeo n 10-13-2017 aPTT 22.9 s Normal 21.6-35.[address] [facility] Comment on above: Result Comment: Hepa rin Therapeutic Range: 38.8 - 54.6 seconds. Prothrombin Timeon 8 INR Coag RelTime (PPP) 1.0 {INR} Normal [facility] Comment on above: Result Comment: [...] Coag time (PPP) 10.0 s Normal 8.1-13.[address] [facility] Type and Screen Capture 3 sc rn cellon 10-13-2017 Bilirubin (total) PATIENT: DYAN HERNANDES LOC: [facility],,BILL# : [id number] : 1960 SEX: FORDERED BY: BASIM CHENG ORDERED : 10/13/2017 12:41 COLLECTED: 10/13/2017 13:24ORDER : [id number] RECEIVED : 10/13/2017 13:24 --TEST NAME RESULT UNITS RANGES ABN FL STABORH Capture A POS FAntibody 3 Cell Scrn Captu NEG F Normal [facility] Urinalysis, reflex to cultur gabbie 10-13-2017 Bilirubin Ql (U) Negative Normal Negative [facility] Urine Reflexed to Culture Not Indicated Normal [facility] Urine, clarity Clear Normal Clear [facility] Urine, color Yellow Normal Straw/[place] [facility] Urine, glucose presence Negative Normal Negative [facility] Urine, hemoglobin presence Negative Normal Negative [facility] Urine, ketones presence Negative Normal Negative [facility] Urine, leukocyte esterase presence Negative Normal Negative [facility] Urine, nitrite presence Negative Normal Negative [facility] Urine, pH 5.5 [pH] Normal 5.0-9.[address] [facility] Urine, protein presence Negative Normal Negative [facility] Urine, specific gravity 1.018 Normal 1.005-1.[address] [facility] Urine, urobilinogen 0.2 {Rajwinder'U}/dL Normal < 2.[address] [facility] Vital Signs Date Time Vital Sign Value Performing Clinician Facility 09-25-2024 10:34-0400 Body height 165.1 cm [facility] 09-25-2024 10:34-0400 Body mass index (BMI) [Ratio] 22.1 kg/m2 [facility] 09-25-2024 10:34-0400 Body weight 60.44 kg [facility] 09-25-2024 10:34-0400 Diastolic blood pressure 86 mm[Hg] [facility] 09-25-2024 10:34-0400 Heart rate 72 /min [facility] 09-25-2024 10:34-0400 Respiratory rate 16 /min [facility] 09-25-2024 10:34-0400 SaO2% (BldA) [Mass fraction] 97 % [facility] 09-25-2024 10:34-0400 Systolic blood pressure 137 mm[Hg] [facility] 09-18-2024 10:17-0400 Body height 162.6 cm [employer] Work Phone: [facility] 09-18-2024 10:17-0400 Body mass index (BMI) [Ratio] 28.15 kg/m2 [employer] Work Phone: [facility] 09-18-2024 10:17-0400 Body weight 74.39 kg [employer] Phone: [facility] 08-29-2024 15:44-0500 Body height 165.1 cm [facility] 08-29-2024 15:44-0500 Body mass index (BMI) [Ratio] 22 kg/m2 [facility] 08-29-2024 15:44-0500 Body weight 60.04 kg [facility] 08-29-2024 15:44-0500 Diastolic blood pressure 54 mm[Hg] [facility] 08-29-2024 15:44-0500 Heart rate 57 /min [facility] 08-29-2024 15:44-0500 Respiratory rate 12 /min [facility] 08-29-2024 15:44-0500 Systolic blood pressure 136 mm[Hg] [facility] 07-17-2024 15:06-0500 Body height 162.6 cm [employer] Phone: [facility] 07-17-2024 15:06-0500 Body mass index (BMI) [Ratio] 28.15 kg/m2 Jordan Yuan DO Work Phone: [facility] 07-17-2024 15:06-0500 Body weight 74.39 kg Jordan Yuan DO Work Phone: [facility] 06-05-2024 14:20-0500 Body height 162.6 cm Jordan Yuan DO Work Phone: [facility] 06-05-2024 14:20-0500 Body mass index (BMI) [Ratio] 28.15 kg/m2 Jordan Yuan DO Work Phone: [facility] 06-05-2024 14:20-0500 Body temperature 97.5 [degF] Jordan Yuan DO Work Phone: [facility] 06-05-2024 14:20-0500 Body weight 74.39 kg Jordan Yuan DO Work Phone: [facility] 05-08-2024 10:38-0400 Body height 162.6 cm Jordan Yuan DO Work Phone: [facility] 05-08-2024 10:38-0400 Body mass index (BMI) [Ratio] 28.15 kg/m2 Jordan Yuan DO Work Phone: [facility] 05-08-2024 10:38-0400 Body temperature 97.39 [degF] Jordan Yuan DO Work Phone: [facility] 05-08-2024 10:38-0400 Body weight 74.39 kg Jordan Yuan DO Work Phone: [facility] 04-27-2024 13:08-0400 Heart rate 80 /min Joradn Yuan [facility] 04-27-2024 13:08-0400 SaO2% (BldA) [Mass fraction] 94 % Jordan Yuan [facility] 04-27-2024 13:08-0400 Blood Pressure Location Jordan Yuan [facility] 04-27-2024 13:08-0400 Diastolic blood pressure 72 mm[Hg] Jordan Yuan [facility] 04-27-2024 13:08-0400 Mean blood pressure 93 mm[Hg] Jordan Yuan [facility] 04-27-2024 13:08-0400 Systolic blood pressure 136 mm[Hg] Jordan Yuan [facility] 04-27-2024 13:08-0400 Respiratory rate 18 /min Jordan Yuan [facility] 04-27-2024 11:23-0400 Heart rate 72 /min Jordan Yuan [facility] 04-27-2024 11:23-0400 SaO2% (BldA) [Mass fraction] 100 % Jordan Yuan [facility] 04-27-2024 11:22-0400 Blood Pressure Location Jordan Yuan [facility] 04-27-2024 11:22-0400 Diastolic blood pressure 66 mm[Hg] Jordan Yuan [facility] 04-27-2024 11:22-0400 Mean blood pressure 86 mm[Hg] Jordan Yuan [facility] 04-27-2024 11:22-0400 Systolic blood pressure 126 mm[Hg] Jordan Yuan [facility] 04-27-2024 11:22-0400 Respiratory rate 18 /min Jordan Yuan [facility] 04-27-2024 11:15-0400 Blood Pressure Location Jordan Yuan [facility] 04-27-2024 11:15-0400 Body temperature 97.16 [degF] Jordan Yuan [facility] 04-27-2024 11:15-0400 Diastolic blood pressure 62 mm[Hg] Jordan Yuan [facility] 04-27-2024 11:15-0400 Heart rate 79 /min Jordan Brown [facility] 04-27-2024 11:15-0400 Mean blood pressure 81 mm[Hg] Jordan Yuan [facility] 04-27-2024 11:15-0400 Respiratory rate 20 /min Jordan Yuan [facility] 04-27-2024 11:15-0400 SaO2% (BldA) [Mass fraction] 100 % Jordan Yuan [facility] 04-27-2024 11:15-0400 Systolic blood pressure 118 mm[Hg] Jordan Yuan [facility] 04-27-2024 11:05-0400 Mean blood pressure 91 mm[Hg] Jordan Yuan [facility] 04-27-2024 11:05-0400 Respiratory rate 16 /min Jordan Yuan [facility] 04-27-2024 10:50-0400 Mean blood pressure 88 mm[Hg] Jordan Brown [facility] 04-27-2024 10:50-0400 Respiratory rate 9 /min Jordan Brown [facility] 04-27-2024 10:10-0400 Body temperature 97.16 [degF] Jordan Brown [facility] 04-27-2024 10:05-0400 Respiratory rate 12 /min Jordan Brown [facility] 04-27-2024 06:23-0400 Mean blood pressure 82 mm[Hg] Jordan Brown [facility] 04-27-2024 06:22-0400 Body temperature 97.7 [degF] Jordan Yuan [facility] 04-17-2024 15:14-0400 Body height 165.1 cm [facility] 04-17-2024 15:14-0400 Body mass index (BMI) [Ratio] 23.1 kg/m2 [facility] 04-17-2024 15:14-0400 Body weight 63.16 kg [facility] 04-17-2024 15:14-0400 Diastolic blood pressure 84 mm[Hg] [facility] 04-17-2024 15:14-0400 Heart rate 84 /min [facility] 04-17-2024 15:14-0400 Respiratory rate 12 /min [facility] 04-17-2024 15:14-0400 Systolic blood pressure 147 mm[Hg] [facility] 03-27-2024 16:24-0400 Body height 165.1 cm [facility] 03-27-2024 16:24-0400 Body mass index (BMI) [Ratio] 23.9 kg/m2 [facility] 03-27-2024 16:24-0400 Body weight 65.31 kg [facility] 03-27-2024 16:24-0400 Diastolic blood pressure 76 mm[Hg] [facility] 03-27-2024 16:24-0400 Heart rate 87 /min [facility] 03-27-2024 16:24-0400 Respiratory rate 12 /min [facility] 03-27-2024 16:24-0400 Systolic blood pressure 126 mm[Hg] [facility] 03-19-2024 12:28-0400 Diastolic blood pressure 71 mm[Hg] Jordan Yuan [facility] 03-19-2024 12:28-0400 Systolic blood pressure 126 mm[Hg] Jordan Yuan [facility] 03-19-2024 12:27-0400 Blood Pressure Location Jordan Yuan [facility] 03-19-2024 12:27-0400 Body temperature 97.88 [degF] Jordan Yuan [facility] 03-19-2024 12:27-0400 Diastolic blood pressure 78 mm[Hg] Jordan Yuan [facility] 03-19-2024 12:27-0400 Heart rate 75 /min Jordan Yuan [facility] 03-19-2024 12:27-0400 Mean blood pressure 94 mm[Hg] Jordan Yuan [facility] 03-19-2024 12:27-0400 Respiratory rate 15 /min Jordan Yuan [facility] 03-19-2024 12:27-0400 SaO2% (BldA) [Mass fraction] 97 % Jordan Yuan [facility] 03-19-2024 12:27-0400 Systolic blood pressure 127 mm[Hg] Jordan Yuan [facility] 02-29-2024 09:29-0400 Body height 165.1 cm [facility] 02-29-2024 09:29-0400 Body mass index (BMI) [Ratio] 24.1 kg/m2 [facility] 02-29-2024 09:29-0400 Body weight 65.82 kg [facility] 02-29-2024 09:29-0400 Diastolic blood pressure 81 mm[Hg] [facility] 02-29-2024 09:29-0400 Heart rate 74 /min [facility] 02-29-2024 09:29-0400 Respiratory rate 12 /min [facility] 02-29-2024 09:29-0400 Systolic blood pressure 129 mm[Hg] [facility] 12-28-2023 15:31-0400 Body height 165.1 cm [facility] 12-28-2023 15:31-0400 Body mass index (BMI) [Ratio] 25.7 kg/m2 [facility] 12-28-2023 15:31-0400 Body weight 70.08 kg [facility] 12-28-2023 15:31-0400 Diastolic blood pressure 75 mm[Hg] [facility] 12-28-2023 15:31-0400 Heart rate 92 /min [facility] 12-28-2023 15:31-0400 Respiratory rate 12 /min [facility] 12-28-2023 15:31-0400 Systolic blood pressure 112 mm[Hg] [facility] 11-15-2023 15:42-0400 Body height 162.6 cm [employer] Work Phone: [facility] [employer] 11-15-2023 15:42-0400 Body mass index (BMI) [Ratio] 28.15 kg/m2 [employer] Work Phone: [facility] [employer] 11-15-2023 15:42-0400 Body weight 74.39 kg [employer] Work Phone: [facility] [employer] 09-28-2023 15:16-0400 Body height 165.1 cm [facility] 09-28-2023 15:16-0400 Body mass index (BMI) [Ratio] 27.8 kg/m2 [facility] 09-28-2023 15:16-0400 Body weight 75.92 kg [facility] 09-28-2023 15:16-0400 Diastolic blood pressure 68 mm[Hg] [facility] 09-28-2023 15:16-0400 Heart rate 80 /min [facility] 09-28-2023 15:16-0400 Respiratory rate 12 /min [facility] 09-28-2023 15:16-0400 Systolic blood pressure 130 mm[Hg] [facility] 09-05-2023 21:48-0500 Body height 166.37 cm John Ball Other [employer] Other 09-05-2023 16:33-0500 Body height 165.1 cm [facility] 09-05-2023 16:33-0500 Body mass index (BMI) [Ratio] 28.5 kg/m2 [facility] 09-05-2023 16:33-0500 Body weight 77.79 kg [facility] 09-05-2023 16:33-0500 Diastolic blood pressure 69 mm[Hg] [facility] 09-05-2023 16:33-0500 Heart rate 97 /min [facility] 09-05-2023 16:33-0500 Systolic blood pressure 115 mm[Hg] [facility] 08-18-2023 15:40-0500 Body height 162.6 cm [facility] [employer] Work Phone: [facility] [employer] 08-18-2023 15:40-0500 Body mass index (BMI) [Ratio] 28.15 kg/m2 [facility] [employer] Work Phone: [facility] [employer] 08-18-2023 15:40-0500 Body temperature 97.11 [degF] [facility] [employer] Work Phone: [facility] [employer] 08-18-2023 15:40-0500 Body weight 74.39 kg [facility] [employer] Work Phone: [facility] [employer] 08-17-2023 15:00-0500 Body height 166.37 cm John Ball Other [employer] Other 08-17-2023 15:00-0500 Body mass index (BMI) [Ratio] 28.12 kg/m2 John Ball Other [employer] Other 08-17-2023 15:00-0500 Body weight 77.84 kg John Ball Other [employer] Other 08-17-2023 15:00-0500 Diastolic blood pressure 79 mm[Hg] John Ball Other [employer] Other 08-17-2023 15:00-0500 Respiratory rate 12 /min John Ball Other [employer] Other 08-17-2023 15:00-0500 Systolic blood pressure 126 mm[Hg] John Ball Other [facility] [employer] Other 04-07-2023 14:00-0400 Body temperature 97.52 [degF] [facility] [employer] [facility] 04-07-2023 14:00-0400 Diastolic blood pressure 63 mm[Hg] [facility] [employer] [facility] 04-07-2023 14:00-0400 Heart rate 88 /min [facility] [employer] [facility] 04-07-2023 14:00-0400 Mean blood pressure 76 mm[Hg] [facility] [employer] [facility] 04-07-2023 14:00-0400 SaO2% (BldA) [Mass fraction] 94 % Jordan [employer] [facility] 04-07-2023 14:00-0400 Systolic blood pressure 101 mm[Hg] Jordan Brown [facility] 04-07-2023 08:47-0400 Diastolic blood pressure 75 mm[Hg] Jordan Brown [facility] 04-07-2023 08:47-0400 Systolic blood pressure 125 mm[Hg] Jordan Brown [facility] 04-07-2023 07:45-0400 Blood Pressure Location Jordan Brown [facility] 04-07-2023 07:45-0400 Body temperature 97.88 [degF] Jordan Brown [facility] 04-07-2023 07:45-0400 Diastolic blood pressure 75 mm[Hg] Jordan Brown [facility] 04-07-2023 07:45-0400 Heart rate 72 /min Jordan Yuan [facility] 04-07-2023 07:45-0400 Hourly Rounding Jordan Yuan [facility] 04-07-2023 07:45-0400 Mean blood pressure 92 mm[Hg] Jordan Yuan [facility] 04-07-2023 07:45-0400 Promise to Return Jordan Yuan [facility] 04-07-2023 07:45-0400 Respiratory rate 16 /min Jordan Yuan [facility] 04-07-2023 07:45-0400 SaO2% (BldA) [Mass fraction] 96 % Jordan Yuan [facility] 04-07-2023 07:45-0400 Systolic blood pressure 125 mm[Hg] Jordan Yuan [facility] 04-07-2023 06:17-0400 Hourly Rounding Jordan Yuan [facility] 04-07-2023 06:17-0400 Promise to Return Jordan Yuan [facility] 04-07-2023 05:05-0400 Hourly Rounding Jordan Yuan [facility] 04-07-2023 05:05-0400 Promise to Return Jordan Yuan [facility] 04-06-2023 22:20-0400 Blood Pressure Location Jordan Yuan [facility] 04-06-2023 22:20-0400 Body temperature 98.24 [degF] Jordan Yuan [facility] 04-06-2023 22:20-0400 Heart rate 74 /min Jordan Yuan [facility] 04-06-2023 22:20-0400 Mean blood pressure 78 mm[Hg] Jordan Yuan [facility] 04-06-2023 22:20-0400 Respiratory rate 16 /min Jordan Yuan [facility] 04-06-2023 22:20-0400 SaO2% (BldA) [Mass fraction] 93 % Jordan Yuan [facility] 04-06-2023 20:10-0400 Heart rate 65 /min Jordan [employer] [facility] 04-06-2023 20:01-0400 Body temperature 97.34 [degF] Jordan [employer] [facility] 04-06-2023 20:00-0400 Mean blood pressure 86 mm[Hg] Jordan [employer] [facility] 04-06-2023 16:17-0400 Mean blood pressure 97 mm[Hg] Jordan Yuan [facility] 04-06-2023 16:16-0400 Body temperature 97.52 [degF] Jordan [employer] [facility] 04-06-2023 13:49-0400 Mean blood pressure 88 mm[Hg] Jordan Yuan [facility] 04-06-2023 12:45-0400 Respiratory rate 13 /min Jordan Yuan [facility] 04-06-2023 12:35-0400 Respiratory rate 10 /min Jordan Yuan [facility] 04-06-2023 12:20-0400 Respiratory rate 17 /min Jordan [employer] [facility] 04-06-2023 11:37-0400 Body temperature 96.98 [degF] Jordan [employer] [facility] 04-06-2023 06:39-0400 Heart rate 68 /min Jordan Yuan [facility] 03-24-2023 14:52-0400 Diastolic blood pressure 76 mm[Hg] Jordan Yuan [facility] 03-24-2023 14:52-0400 Heart rate 67 /min Jordan Yuan [facility] 03-24-2023 14:52-0400 Mean blood pressure 99 mm[Hg] Jordan Yuan [facility] 03-24-2023 14:52-0400 Systolic blood pressure 144 mm[Hg] Jordan Yuan [facility] 03-24-2023 14:52-0400 Heart rate 68 /min Jordan [employer] [facility] 03-24-2023 14:52-0400 SaO2% (BldA) [Mass fraction] 99 % Jordan [employer] [facility] 03-24-2023 14:52-0400 Diastolic blood pressure 75 mm[Hg] Jordan Yuan [facility] 03-24-2023 14:52-0400 Mean blood pressure 93 mm[Hg] Jordan Yuan [facility] 03-24-2023 14:52-0400 Systolic blood pressure 128 mm[Hg] Jordan Yuan [facility] 03-24-2023 14:51-0400 Respiratory rate 16 /min [facility] [employer] [facility] 01-10-2023 15:00-0400 Body height 166.37 cm [employer] Other [employer] Other 01-10-2023 15:00-0400 Body mass index (BMI) [Ratio] 27.04 kg/m2 [employer] Other [employer] Other 01-10-2023 15:00-0400 Body weight 74.84 kg John Ball Other [employer] Other 01-10-2023 15:00-0400 Diastolic blood pressure 86 mm[Hg] John Ball Other [employer] Other 01-10-2023 15:00-0400 Respiratory rate 12 /min John Ball Other [employer] Other 01-10-2023 15:00-0400 Systolic blood pressure 124 mm[Hg] John Ball Other [employer] Other 12-09-2022 09:00-0400 Body height 166.37 cm John Ball Other [employer] Other 12-09-2022 09:00-0400 Body mass index (BMI) [Ratio] 27.33 kg/m2 John Ball Other [employer] Other 12-09-2022 09:00-0400 Body weight 75.66 kg John Ball Other [employer] Other 12-09-2022 09:00-0400 Diastolic blood pressure 71 mm[Hg] John Ball Other [employer] Other 12-09-2022 09:00-0400 Respiratory rate 12 /min John Ball Other [employer] Other 12-09-2022 09:00-0400 Systolic blood pressure 111 mm[Hg] John Ball Other [employer] Other 11-09-2022 15:00-0400 Body height 166.37 cm John Ball Other [employer] Other 11-09-2022 15:00-0400 Body mass index (BMI) [Ratio] 27.36 kg/m2 John Ball Other [employer] Other 11-09-2022 15:00-0400 Body weight 75.75 kg John Ball Other [employer] Other 11-09-2022 15:00-0400 Diastolic blood pressure 80 mm[Hg] John Ball Other [employer] Other 11-09-2022 15:00-0400 Respiratory rate 12 /min John Ball Other [employer] Other 11-09-2022 15:00-0400 Systolic blood pressure 135 mm[Hg] John Ball Other [employer] Other 07-26-2022 16:30-0500 Body height 166.37 cm John Ball Other [employer] Other 07-26-2022 16:30-0500 Body mass index (BMI) [Ratio] 26.28 kg/m2 John Ball Other [employer] Other 07-26-2022 16:30-0500 Body weight 72.76 kg John Ball Other [employer] Other 07-26-2022 16:30-0500 Diastolic blood pressure 78 mm[Hg] John Ball Other [employer] Other 07-26-2022 16:30-0500 Respiratory rate 12 /min John Ball Other [employer] Other 07-26-2022 16:30-0500 Systolic blood pressure 122 mm[Hg] John Ball Other [employer] Other Encounters Encounter Date Encounter Type Care Provider Facility Start: 10-04-2024 End: 10-04-2024 ambulatory JORDAN Sue KWABENA Not Available Start: 10-04-2024 End: 10-04-2024 Bamboo flowsheet Jordan A Kwabena DO Work Phone: [facility] Start: 10-04-2024 End: 10-04-2024 Bamboo flowsheet Jordan Sue Kwabena DO Work Phone: [facility] Start: 09-28-2024 End: 09-29-2024 ambulatory Jordan Yuan Facility:[facility] Start: 09-25-2024 End: 09-25-2024 ambulatory [facility] Work Phone: Start: 09-25-2024 End: 09-25-2024 Patient encounter procedure Counts Include [facility] Physician [facility] Work Phone: Start: 09-18-2024 End: 09-18-2024 Patient encounter procedure Jordan Sue Kwabena DO Work Phone: [facility] Comment on above: S/P arthroscopy of l eft shoulder (Primary Dx) Start: 09-18-2024 End: 09-18-2024 ambulatory JORDAN Sue KWABENA Not Available Start: 08-31-2024 Non-patient / Non-visit [facility] Work Phone: Start: 08-29-2024 End: 08-29-2024 ambulatory [facility] Work Phone: Start: 08-29-2024 End: 08-29-2024 Encounter for general adult medical examination without abnormal findings [facility] Start: 08-29-2024 End: 08-29-2024 Patient encounter procedure Counts Include [facility] Physician [facility] Work Phone: Start: 08-27-[address] [facility] Start: 07-17-2024 End: 07-17-2024 Patient encounter procedure Jordan Sue Kwabena DO Work Phone: [facility] Comment on above: S/P arthroscopy of l eft shoulder (Primary Dx) Start: 07-17-2024 End: 07-17-2024 ambulatory JORDAN YUAN Not Available Start: 07-17-2024 End: 07-17-2024 Bamboo flowsheet Jordan Yuan DO Work Phone: [facility] Start: 07-17-2024 End: 07-17-2024 Bamboo flowsheet Jordan Yuan DO Work Phone: [facility] Start: 06-21-2024 Non-patient / Non-visit [facility] Work Phone: Start: 06-14-2024 End: 06-14-2024 Patient encounter procedure [facility] Work Phone: Start: 06-05-2024 End: 06-05-2024 ambulatory JORDAN YUAN Not Available Start: 06-05-2024 End: 06-05-2024 Patient encounter procedure Jordan Yuan DO Work Phone: [facility] Comment on above: Status post shoulder surgery (Primary Dx) Start: 05-09-2024 End: 05-09-2024 ambulatory [facility] Work Phone: Start: 05-09-2024 End: 05-09-2024 Patient encounter procedure [facility] Work Phone: Start: 05-08-2024 End: 05-08-2024 Patient encounter procedure Jordan Yuan DO Work Phone: [facility] Comment on above: Status post shoulder surgery (Primary Dx) Start: 05-08-2024 End: 05-08-2024 ambulatory JORDAN YUAN Not Available Start: 05-08-2024 End: 05-08-2024 ambulatory JORDAN YUAN Not Available Start: 04-27-2024 End: 04-27-2024 Admission to same day surgery center Jordan Yuan [facility] Start: 04-27-2024 End: 04-27-2024 ambulatory DO Jordan Yuan Facility:[facility] Start: 04-17-2024 End: 04-17-2024 ambulatory [facility] Work Phone: Start: 04-17-2024 End: 04-17-2024 Patient encounter procedure Counts Include [facility] Physician [facility] Work Phone: Start: 04-10-2024 End: 04-10-2024 ambulatory [facility] Work Phone: Start: 04-10-2024 End: 04-10-2024 Patient encounter procedure Counts Include [facility] Physician [facility] Work Phone: Start: 03-30-2024 End: 03-30-2024 ambulatory [facility] Work Phone: Start: 03-30-2024 End: 03-30-2024 Patient encounter procedure Counts Include [facility] Physician [facility] Work Phone: Start: 03-27-2024 End: 03-27-2024 ambulatory [facility] Work Phone: Start: 03-27-2024 End: 03-27-2024 Patient encounter procedure Counts Include [facility] Physician [facility] Work Phone: Start: 03-25-[address] [facility] Start: 03-19-2024 End: 03-19-2024 ambulatory Jordan Yuan Facility:[facility] Start: 03-19-2024 End: 03-19-2024 Patient encounter procedure Jordan Yuan [facility] Start: 02-29-2024 End: 02-29-2024 ambulatory [facility] Work Phone: Start: 02-29-2024 End: 02-29-2024 Patient encounter procedure Counts Include [facility] Physician [facility] Work Phone: Start: 02-23-2024 End: 02-23-2024 ambulatory JORDAN YUAN Not Available Start: 02-14-2024 Non-patient / Non-visit Counts Include [facility] Work Phone: Start: 02-02-2024 Non-patient / Non-visit Counts Include [facility] Work Phone: Start: 12-28-2023 End: 12-28-2023 ambulatory [facility] Work Phone: Start: 12-28-2023 End: 12-28-2023 Patient encounter procedure Counts Include [facility] Physician [facility] Work Phone: Start: 11-15-2023 End: 11-15-2023 Patient encounter procedure Jordan Yuan DO Work Phone: [facility] Comment on above: Status post shoulder surgery (Primary Dx) Start: 11-15-2023 End: 11-15-2023 ambulatory JORDAN YUAN Not Available Start: 11-04-2023 End: 11-04-2023 ambulatory [facility] Start: 09-28-2023 End: 09-28-2023 ambulatory [facility] Work Phone: Start: 09-28-2023 End: 09-28-2023 Patient encounter procedure Counts Include [facility] Physician [facility] Work Phone: Start: 09-06-2023 End: 09-06-2023 ambulatory Jordan Yuan Facility:[facility] Start: 09-06-2023 End: 09-06-2023 Patient encounter procedure Jordan Yuan [facility] Start: 09-05-2023 Non-patient / Non-visit Counts Include [facility] Phys[facility] Work Phone: Start: 09-05-2023 End: 09-05-2023 ambulatory John Ashby Other [facility] [employer] Other Start: 09-05-2023 Telephone encounter John Ball [facility] Start: 09-02-2023 Non-patient / Non-visit Counts Include [facility] Phys[facility] Work Phone: Start: 08-30-2023 Non-patient / Non-visit Counts Include [facility] Physician [facility] Work Phone: Start: 08-18-2023 End: 08-18-2023 Patient encounter procedure Jordan Yuan DO Work Phone: [facility] Comment on above: Right shoulder pain, unspecified chronicity (Primary Dx) Start: 08-18-2023 Chart abstracting Jordan do DO Work Phone: [facility] Start: 08-17-2023 End: 08-17-2023 ambulatory John Ashby Other [employer] Other Start: 08-17-2023 Encounter for genera l adult medical examination without abnormal findings John Ashby [facility] Start: 08-17-2023 Periodic preventive med est patient 40-64yrs John Ashby [facility] Start: 06-28-2023 End: 06-28-2023 ambulatory John Ashby Other [employer] Other Start: 06-28-2023 Office outpatient vi sit 15 minutes John Ashby [facility] Start: 05-06-2023 End: 05-06-2023 ambulatory John Ashby Other [employer] Other Start: 05-06-2023 Telephone encounter John SIMON [facility] Start: 04-26-2023 End: 04-26-2023 ambulatory John Ashby Other [employer] Other Start: 04-26-2023 Telephone encounter John SIMON [facility] Start: 04-06-2023 End: 04-07-2023 Admission to same day surgery center Jordan Yuan [facility] Start: 04-06-2023 End: 04-07-2023 ambulatory Jordan Yuan Facility:[facility] Start: 03-31-2023 End: 03-31-2023 ambulatory John Ashby Other [employer] Other Start: 03-31-2023 Telephone encounter John Ashby [facility] Start: 03-26-2023 End: 03-26-2023 ambulatory John Ashby Other [employer] Other Start: 03-26-2023 Telephone encounter John Ashby [facility] Start: 03-24-2023 End: 03-24-2023 ambulatory Jordan Yuan Facility:[facility] Start: 03-24-2023 End: 03-24-2023 Patient encounter procedure Jordan Yuan [facility] Start: 03-21-2023 End: 03-21-2023 ambulatory John Ashby Other [employer] Other Start: 03-21-2023 Telephone encounter John Ashby [facility] Start: 01-12-2023 End: 01-12-2023 ambulatory John Ashby Other [employer] Other Start: 01-12-2023 Telephone encounter John Ashby [facility] Start: 01-10-2023 End: 01-10-2023 ambulatory John Ashby Other [employer] Other Start: 01-10-2023 Office outpatient vi sit 15 minutes John Symone [facility] Start: 12-14-2022 End: 12-14-2022 ambulatory John Ball Other [employer] Other Start: 12-14-2022 Telephone encounter John Ball [facility] Start: 12-10-2022 End: 12-10-2022 ambulatory John Ball Other [employer] Other Start: 12-10-2022 Telephone encounter John Ashby [facility] Start: 12-09-2022 End: 12-09-2022 ambulatory John Ashby Other [employer] Other Start: 12-09-2022 Office outpatient vi sit 15 minutes John Ashby [facility] Start: 11-09-2022 End: 11-09-2022 ambulatory John Ashby Other [employer] Other Start: 11-09-2022 Office outpatient vi sit 15 minutes John Ball [facility] Start: 10-13-2022 ambulatory NARENDRANATH LAKSHMIPATHY . Facility:[facility] Start: 10-07-2022 End: 10-08-2022 ambulatory NARENDRANATH LAKSHMIPATHY . Facility:[facility] Start: 09-22-2022 End: 09-22-2022 ambulatory John Ashby Other [employer] Other Start: 09-22-2022 Telephone encounter John Symone [facility] Start: 09-16-2022 End: 09-17-[address] JOHN ASHBY Facility:[facility] Start: 08-14-2022 End: 08-14-2022 ambulatory John Ashby Other [employer] Other Start: 08-14-2022 Telephone encounter John Symone [facility] Start: 07-26-2022 End: 07-26-2022 ambulatory John Ashby Other [employer] Other Start: 07-26-2022 Office outpatient vi sit 15 minutes John Ashby [facility] Start: 07-22-2022 Annual wellness visit John Ashby Other [employer] Other Start: 07-22-2022 Patient encounter procedure John Ashby Other [employer] Other Start: 07-09-2022 End: 07-10-[address] JOHN ASHBY Facility:[facility] Start: 06-21-2022 Adult health examination John Ashby Other [employer] Other Start: 06-21-2022 Gynecological examination normal John Ashby Other [employer] Other Start: 2022 End: 06-09-[address] JOHN ASHBY Facility:[facility] Start: 06-01-2022 End: 06-01-[address] JOHN ASHBY Facility:[facility] Start: 05-24-2022 Encounter for genera l adult medical examination without abnormal findings DR JOHN ASHBY [facility] Start: 05-20-2022 End: 05-21-2022 ambulatory [...] 03-05-2020 End: 03-20-2020 Patient encounter procedure MARYURI REJISUSAN Facility:[facility] Start: 10-20-2017 End: 10-21-2017 Ambulatory [facility] Start: 10-13-2017 End: 10-18-2017 Ambulatory [facility] [place] Procedures Date Procedure Procedure Detail Performing Clinician [...] Start: 10-13-2017 URINE RT REFLEX TO CULTURE BARYR BASIM Start: 10-13-2017 TYPE AND SCREEN BARRY [...] Treatment Date Care Activity Detail Author Start: 10-04-2024 End: 10-04-2024 Patient encounter procedure 10/04/2024 2:45 PM EDT Office Visit [facility] [address] [place] [address] Jordan Yuan DO [address] [place] [address] Arrived [facility] Comment on above: Arrived Start: 09-18-2024 End: 09-18-2024 Patient encounter procedure 09/18/2024 10:00 AM EDT Office Visit [facility] [address] [place] [address] Jordan Yuan DO [address] [place] [address] [facility] Start: 07-17-2024 End: 07-17-2024 Patient encounter procedure 07/17/2024 2:45 PM EST Office Visit [facility] [address] [place] [address] Jordan Yuan DO [address] [place] [address] Arrived [facility] Comment on above: Arrived Start: 2024 Screening for malign ant neoplasm of colon [facility] Start: 06-05-2024 End: 06-05-2024 Patient encounter procedure 06/05/2024 9:15 AM EST Office Visit [facility] [address] [place] [address] Jordan Yuan DO [address] [place] [address] [facility] Start: 05-08-2024 End: 05-08-2024 Patient encounter procedure 05/08/2024 10:45 AM EDT Office Visit [facility] [address] [place] [address] Jordan Yuan, DO [address] [place] [address] [facility] Start: 03-11-2024 Influenza vaccination Influenza Vacc ine (#1) [facility] Start: 10-04-2023 End: 10-04-2023 Patient encounter procedure 10/04/2023 3:45 PM EDT Office Visit [facility] [address] [place] [address] Jordan Yuan, DO [address] [place] [address] [facility] Start: 08-18-2023 End: 08-18-2023 Patient encounter procedure 08/18/2023 3:45 PM EST Office Visit [facility] [address] [place] [id number] Jordan Yuan, DO [address] [place] [address] [facility] Start: 08-18-2023 End: 08-18-2024 C reactive protein [Mass/volume] in Serum or Plasma C-reactive protein Lab Routine Right shoulder pain, unspecified chronicity Expected: 08/18/2023 (Approximate), Expires: 08/18/2024 [facility] Comment on above: Expected: 08/18/2023 (Approximate), Expires: 08/18/2024 Start: 08-18-2023 End: 08-18-2024 CBC W Auto Differential panel - Blood CBC auto differential Lab Routine Right shoulder pain, unspecified chronicity Expected: 08/18/2023 (Approximate), Expires: 08/18/2024 [facility] Work Phone: Comment on above: Expected: 08/18/2023 (Approximate), Expires: 08/18/2024 Start: 08-18-2023 End: 08-18-2024 Erythrocyte sedimentation rate Sedimentation rate, automated Lab Routine Right shoulder pain, unspecified chronicity Expected: 08/18/2023 (Approximate), Expires: 08/18/2024 [facility] Comment on above: Expected: 08/18/2023 (Approximate), Expires: 08/18/2024 Start: 08-18-2023 End: 08-18-2024 Interleukin-6 Interleukin-6 Lab Routine Right shoulder pain, unspecified chronicity Expected: 08/18/2023 (Approximate), Expires: 08/18/2024 [facility] Comment on above: Expected: 08/18/2023 (Approximate), Expires: 08/18/2024 Start: 2000 Screening for malign ant neoplasm of breast Mammogram [facility] Start: 1990 Screening for malign ant neoplasm of cervix [facility] Start: 1981 Screening for malign ant neoplasm of cervix Pap Smear [facility] Start: 1960 Screening for malign ant neoplasm of colon [facility] Comprehensive metabo lic 1999 panel - Serum or Plasma [facility] Renal function 1999 panel - Serum or Plasma [facility] US [facility]hor[facility] Immunizations Immunization Date Immunization Notes Care Provider Angélica kwon 05-10-2019 influenza virus vaccine, unspecified formulation Jordan Yuan DO Work Phone: [facility] 03-22-2012 tetanus and diphther ia toxoids, adsorbed, preservative free, for adult use (5 Lf of tetanus toxoid and 2 Lf of diphtheria toxoid) John Ashby Other [facility] Payers Date Payer Category Payer Medicare (Managed Care) [employer] AARP [id number] 2024 Medicare [id number] 2021 Blue Cross Blue Shield BCBS [id number] 2021 Unknown [id number]. 1.13.693.2 .[id number] 2021 Blue Cross Blue Shield [id number] 2.16.840.1.049507.19 2020 Medicare 1.2.840.054227. 1.13.693.2 .7.3.612554.315 2017 Unknown [id number] 1960 Unknown [id number] 2.16.840.1.704235.3.579.2 .647 1960 Unknown [id number] 2.16.840.1.427353.3.579.2 .647 1960 Unknown [id number] 2.16.840.1.442815.3.579.2 .593 1960 Unknown [id number] 2.16.840.1.816344.3.579.2 .593 1960 Unknown [id number] 2.16.840.1.024180.3.579.2 .593 1960 Unknown [id number] 2.16.840.1.757851.3.579.2 .593 1960 Unknown [id number] 2.16.840.1.968244.3.579.2 .593 1960 Unknown [id number] 2.16.840.1.293448.3.579.2 .593 1960 Unknown [id number] 2.16.840.1.160056.3.579.2 .593 1960 Unknown [id number] 2.16.840.1.907211.3.579.2 .593 1960 Unknown [id number] 2.16.840.1.977355.3.579.2 .593 1960 Unknown [id number] 2.16.840.1.324369.3.579.2 .593 1960 Unknown [id number] 2.16.840.1.018981.3.579.2 .593 1960 Unknown [id number] 2.16.840.1.344320.3.579.2 .593 1960 Unknown [id number] 2.16.840.1.579318.3.579.2 .593 1960 Unknown [id number] 2.16.840.1.655353.3.579.2 .593 1960 Unknown [id number] 2.16.840.1.351183.3.579.2 .593 1960 Unknown [id number] 2.16.840.1.891968.3.579.2 .593 1960 Unknown [id number] 2.16.840.1.908868.3.579.2 .593 1960 Unknown [id number] 2.16.840.1.289686.3.579.2 .727 1960 Unknown [id number] 2.16.840.1.664432.3.579.2 .727 1960 Unknown [id number] 2.16.840.1.884765.3.579.2 .727 1960 Unknown [id number] 2.16.840.1.429557.3.579.2 .727 1960 Unknown [id number] 2.16.840.1.086898.3.579.2 .727 1960 Unknown [id number] 2.16.840.1.329224.3.579.2 .727 1960 Unknown [id number] 2.16.840.1.013492.3.579.2 .727 1960 Unknown [id number] 2.16.840.1.986864.3.579.2 .9 1960 Unknown [id number] 2.16.840.1.371001.3.579.2 .9 1960 Unknown [id number] 2.16.840.1.483181.3.579.2 .9 1960 Unknown [id number] 2.16.840.1.867471.3.579.2 .1259 1960 Unknown [id number] 2.16.840.1.626457.3.579.2 .9 1960 Unknown [id number] 2.16.840.1.174261.3.579.2 .9 1960 Unknown [id number] 2.16.840.1.740128.3.579.2 .1259 1960 Unknown [id number] 2.16.840.1.909176.3.579.2 .1259 1960 Unknown [id number] 2.16.840.1.930245.3.579.2 .9 1960 Unknown [id number] 2.16.840.1.619845.3.579.2 .1258 1960 Unknown [id number] 2.16.840.1.916816.3.579.2 .1259 1959 Medicare [id number] 1959 Self-pay 1959 Unknown [id number] 1959 Unknown [id number] Private Health Insurance [facility] [id number] Social History Date Type Detail Facility Unknown if ever smoked [facility] Other Start: 07-21-2023 End: 09-18-2024 Sex Assigned At [facility] Tobacco smoking status No Smokin g Status Entered [facility] Start: 05-24-2023 End: 07-17-2024 Tobacco smoking status NHIS Ex-smoker [facility] Start: 04-10-1981 End: 07-11-1990 History of tobacco use Current smoker [facility] Start: 04-10-1981 End: 07-11-1990 History of tobacco use Cigarette Smoker [facility] Start: 05-24-2023 End: 07-17-2024 Tobacco use and exposure Smokeless tobacco non-user [facility] Start: 07-21-2023 End: 09-18-2024 Alcohol intake Current drinker of alcohol (finding) [facility] Start: 07-21-2023 End: 09-18-2024 History of Social function [facility] How [...] Start: 1960 Sex Assigned At Female F [facility] Average Number of Drinks Not on file [facility] Start: 08-29-2024 End: 09-25-2024 Sex Female (finding) [facility] Medical Equipment Procedure Code Equipment Code [...] 04-06-2023 SHOULDER ARTHROS COPY W/ POSSIBLE REPAIR Jordan Yuan DO A 04/27/24 Non Biological Shoulder L {[id number]{ [id number] FDA Start: 04-27-2024 Functional Status Date Assessment Result Facility 03-19-2024 Functional Status No [facility] 03-24-2023 Functional Status No [facility] Clinical Notes 05-29-2018 to 09-18-2024 Jordan Yuan DO - 09/18/2024 10:00 AM EDT Note Date & Type Note Facility 09-18-2024 History of Presen t illness Narrative Images from the original note were not included. @LORAINE@ Radha Zaidi is a 64 y.o. female who presents for Follow-up of the Left Shoulder HPI: History of Present Illness The patient is a 64-year-old female who presents for evaluation 5 months status post left shoulder arthroscopy and rotator cuff repair, with the date of surgery being 04/27/2024. She reports that she is still in the process of rehabilitation and has not yet completed it. She notes a gradual improvement in her strength. Supplemental Information She has had 2 neck surgeries. SUBJECTIVE: MEDICATIONS: Current Outpatient Medications Medication Instructions acetaminophen (TYLENOL EXTRA STRENGTH) 500 mg, Oral, Every 4 hours PRN buPROPion XL (Wellbutrin XL) 300 MG 24 hr tablet citalopram (CeleXA) 10 MG tablet HYDROcodone-acetaminophen (Wall) 5-325 MG tablet leflunomide (Arava) 10 MG [...] Father Pete Mansfield Stroke Father Pete Mansfield Broken bones Sister Aiyana Pierre SOCIAL HISTORY: Social History Tobacco Use Smoking status: Former Current packs/day: 0.00 Average packs/day: 1 pack/day for 10.0 years (10.0 ttl pk-yrs) Types: Cigarettes Start date: 04/10/1981 Quit date: 07/11/1990 Years since quittin.2 Smokeless tobacco: Never Vaping Use Vaping status: Never Used Substance Use Topics Alcohol use: Yes Alcohol/week: [...] Status Former BSA 1.83 m Physical Exam Alert and oriented, no acute distress. Mood and affect are appropriate. Ambulating independently. Gait is nonantalgic. LEFT SHOULDER Portals well healed. No erythema. Active abduction is only 30 degrees with very limited active forward elevation. Passive forward flexion 170, abduction 90, ER 90. Positive drop arm. Mild weakness with ER. No ER lag. Negative belly press. RIGHT SHOULDER The skin is warm, dry, and intact. There is no swelling, atrophy, or deformity. The patient can raise the arm overhead. Full forward elevation, abduction, internal and external rotation. Positive weakness with forward flexion. No weakness with ER, negative belly press. Ortho Exam Results ASSESSMENT AND PLAN: I reviewed the history, physical exam, diagnostic studies, and diagnosis with the patient. Assessment & Plan 1. Post-operative status following left shoulder arthroscopy and rotator cuff repair. She demonstrates significant weakness with the shoulder. The potential causes for this could be inadequate healing of the tissue, a slow healing process, or impaired nerve function to the shoulder. An MRI of the left shoulder will be ordered to assess the healing status of the repair. She is advised to continue her rehabilitation regimen if there are no restrictions on the number of visits. If such limitations exist, she may consider pausing the therapy. If the MRI shows that the repair is intact, other reasons for the limited function will be explored. A total of 20 to 29 minutes was spent on this patient encounter which included chart review, check in, nurse triage, history taking, physical examination, diagnostic study review, patient counseling and discussion, entering information into the patient's medical record, and coordinating patient care There are no diagnoses linked to this encounter. Jordan Yuan D.O. Attestation This note was created using voice recognition through [employer] artificial intelligence. documented in this encounter [facility] 08-29-2024 Evaluation note Diagnosis Onset Date Resolution Chronic kidney disease acute Fe bruary 2024 3:15pm Essential hypertension acute Fe bruary 2024 3:15pm Heart failure with improved ejection fraction (HFimpEF) acute August 3:15pm Nonischemic cardiomyopathy acute August 29, 2 025 3:15pm Pernicious anemia acute ua y 2024 3:15pm PSVT (paroxysmal supraventricular tachycardia) acute August 29, 2 025 3:15pm Screening mammogram for breast cancer acute August 29, 2 025 3:15pm Wellness examination acute Febr uary 2024 3:15pm Encounter for screening for malignant neoplasm of colon noneactive August 29, 2 025 3:15pm Anemia of renal disease acute M arch 2024 10:33am Chronic kidney disease, stage 3b acute September 25, 2024 10:33am Hypertensive nephropathy acute September 25, 2024 10:33am Rheumatoid arthritis acute Adonis h 2024 10:33am [facility] Work Phone: 1(340) 262-997601-07-2025 History of Present illness Narrative* Jordan Yuan DO - 07/17/2024 2:45 PM EST Images from the original note were not included. @ENCDATE@ Radha Levy Zaidi is a 64 y.o. female who [...] tablet citalopram (CeleXA) 10 MG tablet HYDROcodone-acetaminophen (Wall) 5-325 MG tablet leflunomide (Arava) 10 MG [...] per Dr Estrella SHOULDER SURGERY Left 04/27/2024 JAB ARCR SPINAL FUSION 2000 TOTAL SHOULDER ARTHROPLASTY Right 04/06/2023 R REV - JAB REVIEW OF SYMPTOMS: The review of systems, [...] evidence of shoulder stiffness. She was advised topersist with her physical therapy regimen, which will now incorporate additional strengthening exercises. The use of ice was recommended to alleviate soreness and mitigate inflammation, particularly when introducing weights and bands. She was cautioned against overexertion and reminded to allow barb periods. It was communicated that she may experience fatigue during certain activities, which is a normal part of the recovery process. Follow-up The patient will follow up in 2 months. There are no diagnoses linked to this encounter. Jordan Yuan D.O. Attestation This note was created using voice recognition through ITDatabase. documented in this encounterEllis Fischel Cancer [id number] Evaluation note* Diagnosis Onset Date Resolution Status Admit Date Pernicious anemia acute Decembe r 2023 3:25pm Chronic kidney disease acute Fe bruary 2024 3:15pm Elevated transaminase level acute August 29, 2024 3:15pm Essential hypertension acute Fe bruary 2024 3:15pm Heart failure with improved ejection fraction (HFimpEF) acute ua2024 3:15pm Nonischemic cardiomyopathy acute August 29, 2024 3:15pm Pernicious anemia acute uar y 2024 3:15pm PSVT (paroxysmal supraventricular tachycardia) acute Fe bruary 2024 3:15pm Screening mammogram for [facility] cancer acute August 29, 2 025 3:15pm Wellness examination acute 2024 3:15pm [facility] Work Phone: 1(933) 263-948311-26-2024 History of Present illness Narrative* Jordan Yuan DO - 06/05/2024 9:15 AM EST Images from the original note were not included. @CARIDADDATE@ Radha Levy Zaidi is a 63 y.o. female [...] tablet citalopram (CeleXA) 10 MG tablet HYDROcodone-acetaminophen (Wall) 5-325 MG tablet TAKE 1 TABLET BY [...] with debridement Patient will start PT at [place]. Philipp protocol for small to medium cuff tears will be utilized. Follow up in 6 weeks. Continue to ice the shoulder and allow sufficient time for rest during the week. There are no diagnoses linked to this encounter. Jordan Yuan D.O. Attestation This note was created using voice recognition through [employer] artificial [place]. * ROSEMARY Hernandez - 06/05/2024 9:15 AM ESTAssociated Order(s): L Inj/Asp: L glenohumeral Post-Procedure Diagnose(s): Status post shoulder surgery L Inj/Asp: L glenohumeral on 06/05/2024 2:26 PM Indications: pain Details: 25 G needle, ultrasound-guided Medications: 2 mL betamethasone acetate-betamethasone sodium phosphate 6 (3-3) MG/ML Consent was given by the patient. documented in this encounterEllis Fischel Cancer [id number] History of Present illness Narrative* Jordan Yuan DO - 05/08/2024 10:45 AM EDT Images from the original note were not included. @CARIDADDATE@ [facility] Levy Zaidi is a 63 y.o. female [...] tablet citalopram (CeleXA) 10 MG tablet HYDROcodone-acetaminophen (Wall) 5-325 MG tablet TAKE 1 TABLET BY MOUTH 3 TIMES A DAY NEEDED FOR PAIN*MUS LAST 30 DAYS HYDROcodone-acetaminophen (Wall) 5-325 MG tablet 1-2 tablets, Oral, Every [...] per Dr Estrella SHOULDER SURGERY Left 04/27/2024 JAB ARCR SPINAL FUSION 2000 TOTAL SHOULDER ARTHROPLASTY Right 04/06/2023 R REV - JAB REVIEW OF SYMPTOMS: The review of systems, [...] for her medication will be [facility] [place]. Follow-up Return in 4 weeks for follow up. PT will be initiated at that time. Diagnoses and all orders for this visit: Status post shoulder surgery - XR shoulder 2+ views left - HYDROcodone-acetaminophen (Wall) 5-325 MG tablet; Take 1-2 tablets by mouth every 4 (four) hoursif needed (pain) for up to 7 days Jordan Yuan D.O. Attestation This note was created using voice recognition through ITDatabase. documented in this encounterEllis Fischel Cancer [id number] Evaluation + Plan note Extracted from: Title:ANES Post-operative Note---General Author: Wm Bajwa MD Date:04/27/24 Plan Transfer/Discharge: Transfer/Discharge Discharge when meets criteria ( To home ). 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 Family History: Primary malignant neoplasm of prostate Father Acute myocardial infarction Mother Procedure history: Total shoulder replacement (04032662) on 04/06/2023 at 62 Years. Cervical laminectomy (6338840853). Amputation of finger (109786843). Removal of lung, Partial (95988). Open reduction and internal fixation of fracture Leg (756361056). Foot surgery (2975256171). Lumbar discectomy (807080617). Social History Social & Psychosocial Habits Alcohol 4Risk Assessment: Denies Alcohol Use Substance Abuse 4Risk Assessment: Denies Substance Abuse Tobacco 4Risk Assessment: Denies Tobacco Use . Physical Examination [...] Signs (last 24 hrs) Last Charted Temp Okougpzs20.5 DegC (APR 27 06:22) Heart Rate Wkflyzjln09 bpm (APR 27:23) FZK864 mmHg (OCT 18 06:23) DBP70 mmHg (APR 27 06:23) Measurements from flowsheet : Measurements 04/27/2024 6:22 [...] Auto 55.1 % Lymph Auto 20.4 % [place] Auto 19.5 % HI Eos Auto 3.7 % Basophil Auto 1.3 % Neutro Absolute 2.4 E9/L Lymph Absolute 0.9 E9/L LOW [place] Absolute 0.8 E9/L Eos Absolute 0.2 E9/L Basophil Absolute 0.1 E9/L . Plan [place] [employer]esthesiologists (ASA) physical status classification: Class III. Anesthetic Preoperative Plan: Anesthesia General. Regional Interscalene block. Addendum by Garett CHAUHAN, Wm Mistry on April 27, 2024 8:55 EDT [place] [facility] 10-18-2024 Hospital Discharge instructions Patient Education 04/27/2024 10:08:37 Shoulder Cryocuff Patient Instructions - FT (CUSTOM) 04/27/2024 10:08:34 Post Op Patient Instructions - FT (CUSTOM) 04/27/2024 07:48:25 Iris Yuan - After Your Shoulder Arthroscopy (Custom) [place], [place] [facility] AFTER YOUR SHOULDER ARTHROSCOPY [...] your appointment. Jordan Yuan, DO [facility] [address] [place] [address] Reviewed: Follow Up Care 02/23/2024 15:25:37 With:Jordan Yuan Address: [address] [place] [address]- Business (1) When:05/08/2024 10:45:00 Comments:Call for any problems.Keep scheduled appointmentAppointment has already been scheduled [facility] 10-18-2024 NoteProgress Note-Physician Patient: RADHA ZAIDI Age: 63 years Sex: Female : 1960 Associated Diagnoses: None Author: Wm Bajwa MD Postoperative Information Postoperative disposition: Postoperative disposition: To PACU. Optimetrix number: Optimetrix number [id number]. Anesthetic utilized: General. Regional: Interscalene Block. Health [...] Discharge when meets criteria ( To home ).[facility] HospitalComment on above:Result Comment: Electronically Signed By: Garett CHAUHAN, Wm Mistry\.br\Date and Time Signed: 04/27/24 10:30 EDT 04-27-2024 NotePatient Education - Text [place], [place] [facility] AFTER YOUR SHOULDER ARTHROSCOPY [...] your appointment. 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 Family History: Primary malignant neoplasm of prostate Father Acute myocardial infarction Mother Procedure history: Total shoulder replacement (87747037) on 04/06/2023 at 62 Years. Cervical laminectomy (4999071385). Amputation of finger (225435193). Removal of lung, Partial (25669). Open reduction and internal fixation of fracture Leg (588496568). Foot surgery (6299242514). Lumbar discectomy (664574402). Social History Social & Psychosocial H (more content not included)...[facility] HospitalComment on above:Result Comment: Electronically Signed By: Garett CHAUHAN, Wm Mistry\.br\Date and Time Signed: 04/27/24 08:55 [id number] History of Present illness Narrative* Jordan Yuan, - 11/15/2023 3:45 PM EDT Images from the original note were not included. @ENCDATE@ [facility] Levy Zaidi is a 63 y.o. female [...] tablet citalopram (CeleXA) 10 MG tablet HYDROcodone-acetaminophen (Wall) 5-325 MG tablet TAKE 1 TABLET BY [...] Jordan Yuan D.O. Attestation documented in this encounterEllis Fischel Cancer [id number] NoteUT Cardiology - [facility] Subjective Radha Zaidi is a 63 [...] mouth if needed., Disp: , Rfl: HYDROcodone-acetaminophen (Wall) 5-325 mg tablet, TAKE 1 TABLET BY [...] 152, HDL 74. 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 She points to the anterior aspect of the shoulder as the locationof her discomfort. SUBJECTIVE: MEDICATIONS: Current Outpatient Medications Medication Instructions aspirin 81 MG EC tablet 1 tablet, Oral, Daily buPROPion XL (Wellbutrin XL) 300 MG 24 hr tablet citalopram (CeleXA) 10 MG tablet HYDROcodone-acetaminophen (Wall) 5-325 MG tablet TAKE 1 TABLET BY [...] care. Jordan Yuan D.O. documented in this encounterEllis Fischel Cancer [id number] Evaluation note* Encounter Date Diagnosis Assessment Notes [...] Symptoms tolerable, continue medical treatment f/u Rheumatology [facility] Other 12-19-2023 Evaluation note* Encounter Date Diagnosis [...] Jun, Immunosuppressed sta tus (ICD-10 - D84.9) [facility] Other 09-28-2023 Evaluation + Plan noteExtracted from: [...] Basic PRE Author:Hill Rai DO Date:04/06/23 Plan [place] [employer] (ASA) physical status classification: Class II. Anesthetic Preoperative Plan: Anesthesia General. Regional Interscalene block. [facility]09-28-2023 Hospital Discharge instructions Patient Education 04/07/2023 07:41:33 Iris Yuan - Shoulder Replacement (Custom) [place], [place] [facility] DISCHARGE INSTRUCTIONS: SHOULDER REPLACEMENT [...] persistent vomiting. Jordan Yuan DO [facility] [address] [place] [address] Reviewed: Follow Up Care 03/09/2023 13:56:15 With:Jordan Yuan Address: [address] [place] [id number] Business (1) When:04/19/2023 14:15:00 With:JOHN ASHBY Address: [address] [place] [address] Business (1) When: Unknown [facility]09-28-2023 NotePatient: RADHA ZAIDI Age: 62 [...] 15 mg, 1 tab(s), Oral, Daily, 0 Refill(s)[facility] HospitalComment on above:Result Comment: Electronically Signed By: Jordan Yuan DO\.br\Date and Time Signed: 04/07/23 07:42 [id number]:127 [facility]09-[facility] Evaluation note* Encounter Date Diagnosis Assessment Notes Treatment Notes Treatment Clinical Notes Mar, Major depressive disorder, single episode, 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 Monitor BP while taking [employer] [facility] Other 03-30-2023 NoteCONSULTATION PROCEDURE DATE: 10/07/2022 PROCEDURE: [...] at least 80% reduction of pain symptoms.[facility] [id number] NoteCONSULTATION CONSULTATION DATE: 10/07/2022 ADDENDUM: On examination of the right shoulder, the patient did have a positive right sided full can test, a positive Neida's test, Apley's test and cross body test. All four positive on examination date 10/07/2022.[facility] [id number] NoteCONSULTATION CONSULTATION DATE: 10/07/2022 TO: John Ashby [...] activity modification, use of Zanaflex, Lyrica and Wall. RECOMMENDATIONS: I recommend proceeding with a right [...] right shoulder without contrast and physical therapy.[facility] [id number] Evaluation note* Encounter Date Diagnosis Assessment Notes Treatment Notes Treatment Clinical Notes Aug, Anemia (ICD-10 - D64.9) [employer] Other 01-16-2023 Evaluation note* Encounter Date Diagnosis [...] Healthy diet, exercise w/o change in treatment [place] [employer] Other [id number] NoteCONSULTATION PROCEDURE DATE: 07/09/2022 PREOPERATIVE DIAGNOSIS: Right [...] will be followed up in the office.[facility] [id number] NoteCONSULTATION CONSULTATION DATE: 07/09/2022 HISTORY OF PRESENT [...] possible increase in dose. She also takes Wall 5/325 t.i.d. and Zanaflex 4 mg three [...] three months' time, unless otherwise indicated. [facility] [id number] NoteCONSULTATION CONSULTATION DATE: 05/20/2022 HISTORY OF PRESENT [...] medications include Celexa, Lyrica 50 mg b.i.d., Wall 5/325 t.i.d. and Zanaflex. Patient is having [...] level of C3-4. We will refill her Wall at 5/325 t.i.d. Supportive home measures were discussed such as heat and a menthol heat rub, as well as vitamin compliance. The patient agrees to move forward with the plan, will be followed up in the clinic thereafter.[facility] [id number] NoteCONSULTATION PROCEDURE DATE: 02/17/2022 PRE AND POSTOPERATIVE [...] will be followed up in the clinic.[facility] [id number] NotePROCEDURE: XR SHOULDER RT 2V or > COMPARISON: None. HISTORY: Pain of right shoulder joint FINDINGS: BONES:No acute fracture or dislocation. Minimal degenerative changes. Cervical fusion hardware SOFT TISSUES:Negative. No visible soft tissue swelling. EFFUSION:None visible. OTHER: Negative. IMPRESSION: No acute abnormality Electronically authenticated by: VANDANA COLLINS Date: 2022-02-16 19:11[facility] [id number] NoteCONSULTATION CONSULTATION DATE: 02/02/2022 CHIEF COMPLAINT: Right [...] aggravates the pain. The patient currently takes Wall 5/325 t.i.d., wellbutrin 150 mg, Lyrica 50 [...] point tenderness along the right bicipital tendon. Patient Access Representative strength is maintained. IMPRESSION: Current working diagnosis [...] like to proceed. 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 Cold weather and bending bother her as well. Medications include Lyrica 75 mg t.i.d., which she has not been taking for the past two months; Celexa, Wall 5/325 t.i.d., Zanaflex and RINVOQ. She feels that her pain is managed well with her Wall, but is concerned about the neuropathic pain [...] in need of a refill for her Wall today, which we will give 5/325 t.i.d. [...] in three months' time unless otherwise indicated. [facility] Signed and Approved by: JACQUIE OLIVAS . 11/12/2021 16:27:00[facility]11-19-2018 Evaluation note* Diagnosis Onset Date Resolution Status PSVT (paroxysmal supraventricular tachycardia) acute Heart failure with improved ejection fraction (HFimpEF) acute Nonischemic cardiomyopathy a cute Orthostatic hypotension May 29, 2018 acute Anemia acute Essential hypertension acute ERICH (generalized anxiety disorder) acute Heart failure with improved ejection fraction (HFimpEF) acute Nonischemic cardiomyopathy a cute Preop exam for internal medicine acute PSVT (paroxysmal supraventricular tachycardia) [facility] Work Phone: [phone] 219-328511-19-2018 Evaluation note* Diagnosis Onset Date Resolution Status Heart failure with improved ejection fraction (HFimpEF) acute Nonischemic cardiomyopathy a cute Orthostatic hypotension May 29, 2018 acute Anemia acute Essential hypertension acute ERICH (generalized anxiety disorder) acute Heart failure with improved ejection fraction (HFimpEF) acute Nonischemic cardiomyopathy a cute Preop exam for internal medicine acute PSVT (paroxysmal supraventricular tachycardia) acute Rheumatoid arthritis acute [facility] Work Phone: Evaluation + Plan note Future Appointments Appointment Date:04/06/2023 09:30:00 AM Scheduled Provider: Location:[facility] Future Appointments Appointment Date:04/06/2024 12:00:00 PM Scheduled Provider: Location:[facility] Appointment Type:Surgery [facility] Evaluation noteNo [facility] [employer] Other Evaluation note* Diagnosis Right shoulder pain, unspecified chronicity- Primary documented in this encounter [facility] Diagnosis Onset Date Resolution Status Hypertension acute Overweight acute PSVT (paroxysmal supraventricular tachycardia) [facility] Work Phone: Evaluation note* Diagnosis Onset Date Resolution Status Hypertension acute Overweight acute PSVT (paroxysmal supraventricular tachycardia) acute Heart failure with improved ejection fraction (HFimpEF ) acute Nonischemic cardiomyopathy [facility] Work Phone: Evaluation note* Diagnosis Status post shoulder surgery- Primary Other postprocedural status documented in this encounter [facility]* [...] anemia acute PSVT (paroxysmal supraventricular tachycardia) acute [facility] Work Phone: Evaluation note* Diagnosis Status post shoulder surgery- Primary Other postprocedural status documented in this encounter [facility]* Diagnosis Status post shoulder surgery- Primary Other postprocedural status documented in this encounter [facility]* Diagnosis S/P arthroscopy of left shoulder- Primary documented in this encounter [facility]* Diagnosis S/P arthroscopy of left shoulder- Primary documented in this encounter [facility] HealthcareHistory general Narrative - Reported* Type [...] Surgical History ORIF, proximal fibula Surgical History [facility] 2011 Surgical History Lumbar fusion Surgical History ACDF C4-6 05/30 Hospitalization History See Above [employer] Other History general Narrative - Reported* Type [...] Surgical History ORIF, proximal fibula Surgical History [facility] 2011 Surgical History Lumbar fusion Surgical History ACDF C4-6 05/30 Surgical History Right reverse total shoulder ar throplasty 03/2023 Hospitalization History See Above [employer] Other Hospital course Narrative No data available for this section [facility] No data available for this section [facility] No data available for this section [facility] Summary Purpose Family History No [...] 2024 3:15pm Screening mammogram for breast cancer [facility] 2024 3:15pm Wellness examination August 29, 2024 3:15pm Chief Complaint Admit Date Wellness August 29, 2024 3:15pm RENAL CKD 3 September 25, 2024 10: 33am Reason for Visit Admit Date Chronic kidney disease August 29 3:15pm Essential hypertension August 29 3:15pm Heart failure with improved ejection fra ction (HFimpEF) August 29, 2024 3:15pm Nonischemic cardiomyopathy August 3:15pm Pernicious anemia August 29, 2024 3:15pm PSVT (paroxysmal supraventricular tachyc ardia) August 29, 2024 3:15pm Screening mammogram for breast cancer [facility] 2024 3:15pm Wellness examination August 29, 2024 3:15pm Encounter for screening for malignant ne oplasm of colon August 29, 2024 3:15pm Anemia of renal disease September 25, 2024 10:33am Chronic kidney disease, stage 3b September 082024 10:33am Hypertensive nephropathy September 25 10:33am Rheumatoid arthritis September 25, 2024 10 :33am Additional Source Comments INFORMATION SOURCE (unrecogn ized section and content) DATE CREATED AUTHOR 12/29/2017 [facility] DATE CREATED AUTHOR AUTHOR'S ORGANIZ ATION 08/29/2018 [facility] DATE CREATED AUTHOR AUTHOR'S ORGANIZ ATION 05/13/2020 [facility] DATE CREATED AUTHOR AUTHOR'S ORGANIZ ATION 10/15/2022 [facility] DATE CREATED AUTHOR AUTHOR'S ORGANIZ ATION 11/07/2023 [facility] DATE CREATED AUTHOR AUTHOR'S ORGANIZ ATION 03/20/2024 [place] [facility] [place] [facility] DATE CREATED AUTHOR AUTHOR'S ORGANIZ ATION 04/29/2024 [place] [facility] DATE CREATED AUTHOR AUTHOR'S ORGANIZ ATION 10/05/2024 [place] [facility] DATE CREATED AUTHOR AUTHOR'S ORGANIZ ATION 10/06/[address] [facility] dical Specialists EPIC REASON FOR VISIT (unrecogniz ed section and content) Reason Comments Follow-up R rev TSA 04/06/23 Reason Comments Follow-up R shoulder pain, Rev TSA 04/06/23 poss coracoid an/or accromial fx ma Reason Comments Post-op Reason Comments Post-op Reason Comments Follow-up Patient Care team informatio n (unrecognized section [...] December 28, 2023 End: December 28, 2023 Leader Writer Relationship Specialty Start Date End Date John Ashby MD [address] [place] [facility] [address] PCP - General Internal Medicine 12/23/22 Leader Writer Relationship Specialty Start Date End Date John Ashby MD [address] [place] [phone] PCP - General Internal Medicine 12/23/22 Team [...] April 10, 2024 End: April 10, 2024 Leader Writer Relationship Specialty Start Date End Date John Ashby MD [address] [place] [facility] [phone] PCP - General Internal Medicine 12/23/22 Team Status: Inactive Member Role Status Dates John Ashby DO Primary Care Provide r, Attending Provider Active Start: April 17, 2024 End: April 17, 2024 Team Status: Inactive Member Role Status Dates John Ball , DO Primary Care Provide r, Attending Provider Active Start: May 09, 2024 End: May 09, 2024 Leader Writer Relationship Specialty Start Date End Date John Ashby MD [address] [facility], [id number] PCP - General Internal Medicine 12/23/22 Leader Writer Relationship Specialty Start Date End Date John Ashby MD [address] [facility], [id number] PCP - General Internal Medicine 12/23/22 Leader Writer Relationship Specialty Start Date End Date John Ashby MD [address] [place] [address] PCP - General Internal Medicine 12/23/22 Leader Writer Relationship Specialty Start Date End Date John Ashby MD [address] [place] [phone] PCP - General Internal Medicine 12/23/22 Team Status: Active Member Role Status Dates John Ashby DO Primary Care Provide r, Attending Provider Active Start: August 31, 2024 Team Status: Inactive Member Role Status Dates John Ashby DO Primary Care Provider Active Start: September 25, 2024 End: September 25, 2024 Miguelangel Gordon MD Attending Provider Active Star t: September 25, 2024 End: September 25, 2024 Yanick Florez MD Referring Provider Active St art: September 25, 2024 End: September 25, 2024 Leader Writer Relationship Specialty Start Date End Date John Ashby MD [address] [place] [facility] [phone] PCP - General Internal Medicine 12/23/22 Goals [...] BE BASED ON THE PRIMARY CLINICAL RECORDS. [facility], [facility]. provides no warranty or guarantee of the accuracy or completeness of information in this document.
[2024-10-08 06:49] VITALS: BP 132/79; PULSE 73; TEMP 36.7; O2SAT 97
[2024-10-08 07:49] VITALS: PULSE 80; O2SAT 96
[2024-10-08 07:50] VITALS: BP 158/74
[2024-10-08 07:51] VITALS: PULSE 82; O2SAT 98
[2024-10-08 07:52] VITALS: BP 151/70
--- NOTE | 2024-10-08 07:52 | W.PM.PROCNOT ---
Date of procedure: 10/08/24 Pre-op diagnosis: Pain due to bilateral sacroiliitis Post-op diagnosis: same as pre-op Procedure: Procedure: Bilateral sacroiliac joint injection Medications: Bupivacaine 0.25% 3cc, depomedrol 40mg x2 After informed consent was obtained, the patient was brought to the medical procedure unit and placed in the prone position, when a timeout was completed verifying correct patient, procedure, site, positioning, implant, and/or special equipment.? The skin overlying the area was prepped and draped in standard sterile fashion using alcohol.? A 25-gauge needle was inserted towards the left sacroiliac joint under direct fluoroscopic imaging.? Needle tip was advanced until the joint was encountered.? We instilled a total of 2 mL of solution.? The same procedure was then completed on the right side.? Postoperatively needles were removed.? The patient tolerated the procedure well without complication.? The patient reported reduction in pain symptoms postoperatively. Anesthesia: Local Surgeon: Nicki Plunkett Pathology: none sent Condition: stable Disposition: no change
[2024-10-08] MEDS: IOHEXOL 240 MG/ML - 10 ML VIAL 24 MG INJ (07:53)
[2024-10-08] MEDS: LIDOCAINE HCL 2% 400 MG/20 ML MDV INJ (07:53)
[2024-10-08] MEDS: BUPIVACAINE HCL 0.25% PF 25 MG/10 ML VIAL 4 ML INJ (07:53)
[2024-10-08] MEDS: METHYLPREDNISOLONE ACETATE 40 MG/ML VIAL 80 MG INJ (07:53)
== END 2024-10-08 07:56 | disposition home or self-care (01) ==
LOC: SURGOUT 06:30
PROVIDERS: PCP Internal Medicine; Visit Provider Anesthesiology
DX: M46.1 Sacroiliitis, not elsewhere classified (principal); M53.3 Sacrococcygeal disorders, not elsewhere classified
CPT/HCPCS: 27096; J0665; J1010; Q9966

== ENCOUNTER 2024-10-17 14:05 | Outpatient (OUT) | payer MEDICARE, SELFPAY ==
--- NOTE | 2024-10-17 14:43 | P.CN_ITS ---
Consult Note: HPI Data of Consult Patient: known to practice within the last 3 years Requesting Physician: Veronique Yu NP Primary Care Provider: John Mcdaniels DO Consult Narrative Reason for consult: f/u Narrative: Radha Obrien a pleasant 64 year old female presents for evaluation of chronic pain. longstanding hx of chronic neck pain, shoulder pain, low back and bilateral hip pain. Hx of C3-7 fusion, previously found benefit to RFAs and ESIs. has failed to benefit from > 6 weeks of PT and provider guided HEP, heat, ice, tylenol, and NSAIDs. currently utilizing pregabalin 150mg TID, tizanidine 4mg TID PRN pain/spasms, and hydrocodone-acetaminophen BID-TID PRN moderate to severe pain. Pain today 4/10 in bilateral shoulders and hips, increasing to 10/10 with standing, walking, ROM, lifting, activity. denies falls or injury. following with orthopedic surgery for evaluation of left shoulder, now they are recommending a total left shoulder replacement. per pt she has had a total replacement on the right side. pt recently underwent bilateral SIJ injection with 50% improvement ongoing. cc:: CC: Veronique Yu NP Review of Systems ROS Status of ROS 10 or more systems reviewed and unremark able except as noted in history and below Musculoskeletal Reports: back pain, neck pain and joint pain PFSH PFSH Medical History (Updated 10/17/24 @ 14:44 by Veronique Yu NP) Neck pain ?M54.2 - Cervicalgia (ICD-10) Low back pain ?M54.50 - Low back pain, unspecified (ICD-10) Osteoarthritis ?M19.90 - Unspecified osteoarthritis, unspecified site (ICD-10) Rheumatoid arthritis ?M06.9 - Rheumatoid arthritis, unspecified (ICD-10) TMJ (dislocation of temporomandibular joint) ?S03.00XA - Dislocation of jaw, unspecified side, initial encounter (ICD-10) Heartburn ?R12 - Heartburn (ICD-10) Pleural effusion ?J90 - Pleural effusion, not elsewhere classified (ICD-10) Irregular heart beat ?I49.9 - Cardiac arrhythmia, unspecified (ICD-10) Surgical History H/O exploratory thoracotomy ?Z98.890 - Other specified postprocedural states (ICD-10) H/O cervical spine surgery ?Z98.890 - Other specified postprocedural states (ICD-10) H/O shoulder surgery ?Z98.890 - Other specified postprocedural states (ICD-10) H/O foot surgery ?Z98.890 - Other specified postprocedural states (ICD-10) H/O: hysterectomy ?Z90.710 - Acquired absence of both cervix and uterus (ICD-10) H/O hand surgery ?Z98.890 - Other specified postprocedural states (ICD-10) H/O lumbosacral spine surgery ?Z98.890 - Other specified postprocedural states (ICD-10) Social History Little interest or pleasure in doing things: not at all Feeling down, depressed, or hopeless: not at all Meds Home Medications and Allergies Home Medications ?Medication ?Instructions ?Recorded ?Confirmed ?Type bupropion HCl 150 mg tablet,12 hr 150 mg PO DAILY 12/15/22 10/08/24 History sustained-release (Wellbutrin SR) calcium PO .qd 12/15/22 History citalopram 20 mg tablet (Celexa) 20 mg PO DAILY 12/15/22 10/08/24 History leflunomide 10 mg tablet (Arava) 10 mg PO DAILY 12/15/22 10/08/24 History metoprolol succinate 25 mg 25 mg PO DAILY 12/15/22 10/08/24 History tablet,extended release 24 hr (Toprol XL) upadacitinib 15 mg tablet,extended 15 mg PO DAILY 12/15/22 10/08/24 History release 24 hr (Rinvoq) tizanidine 4 mg tablet (Zanaflex) See Rx Instructions .Route 11/24/23 10/08/24 Rx .COMPLEX PRN muscle spasticity #360 tabs pregabalin 150 mg capsule (Lyrica) 150 mg PO TID #270 caps 06/26/24 10/08/24 Rx hydrocodone 5 mg-acetaminophen 325 See Rx Instructions .Route 09/19/24 10/08/24 Rx mg tablet .COMPLEX PRN pain #80 tabs Allergies Allergy/AdvReac Type Severity Reaction Status Date / Time No Known Drug Allergies Allergy Verified 10/08/24 06:52 Exam Constitutional Documenting provider has reviewed patient's vital signs: yes Common normals: no apparent distress, oriented x3, healthy appearing, alert and well nourished General appearance: cooperative HENMT Common normals: normocephalic, hearing grossly normal bilaterally and moist oral mucous membranes Head and scalp: normocephalic Eye Common normals: PERRL Pupil: PERRL Neck & C-Spine Common normals: full ROM General: normal visual inspection Other: negative spurlings Chest Common normals: inspection of chest normal Respiratory Common normals: normal respiratory effort, no retractions and no use of accessory muscles Back & Pelvis Lumbar spine/lower back: pain with ROM and lumbar spinal tenderness Sacroiliac joints: SI joints normal Other: bilateral sij negative parth(patricks), gaenslens, thigh thrust, compression test Extremity Right upper extremity: shoulder joint Left upper extremity: shoulder joint Right lower extremity: hip joint Left lower extremity: hip joint Other: increased pain and dysthesia over bilateral suprascapular and axillary nerves unable to perform posterior liftoff and apleys scratch test, bilaterally positive empty can mild pain with external rotation of bilateral hips, no significant pain with internal rotation Neuro Common normals: oriented x3 Sensorium/orientation: alert Motor exam: strength 5/5 throughout and no movement abnormalities noted Psych Common normals: mental status grossly normal, thought process normal, cooperative, affect normal, speech normal and activity/motor behavior normal Speech: normal speech Thought process: normal thought process Results Additional Findings Additional findings: If on a controlled substance or opioids, I have checked an [place]AR[place] report on this patient and there are no aberrancies noted in the prescribing history.??If on a controlled substance or opioid a drug screen was completed and reviewed within the last year, and if there has not been a drug screen completed we ordered one today to monitor higher risk, state monitored pain medication use. As part of providing excellent, safe, comprehensive care, the following was completed at our patient's visit: 1. A medication reconciliation and review to ensure accurate knowledge of current/active medications, including asking our patients to inform us about any zodz-hvz-scnsctd medications or herbal remedies/nutritional supplements/alternative remedies. 2. A review to specifically ensure our patients have had annual screening for screening for depression, screening for tobacco use, and screening for unhealthy alcohol use. For concerning screenings had a discussion with the patient, provided patient education, and recommended follow-up with primary care provider when appropriate. If patient noted with a risk of falling, they received education on strength, gait, and balance training to prevent future risk of falling. Portions of this note may have been carried over from the previous visit and updated as appropriate. Please note this office utilizes paper charting in addition to the electronic medical record. A list of current medications, vitals, and PMH is available there as the clinical staff outside of myself do not have access to [facility] charting during the clinic day operations. As part of providing quality comprehensive care the current medications, vitals, and PMH were reviewed in the paper chart. Assessment and Plan Assessment and Plan (1) Sacroiliitis: Assessment and Plan: 10/08/24 bilateral SIJ injection >50% improvement ongoing (2) Chronic right shoulder pain: (3) Myofascial pain: (4) Chronic pain of both shoulders: (5) Chronic prescription opiate use: Assessment and Plan: I feel these medications are improving the patient's quality of life and allow them to tolerate activities of daily living as well as participate in recreational activity.? The patient does not report intolerable side effects. The patient is NOT opioid naive and non-pharmacologic and non-opioid treatment has failed to significantly relieve the patient's pain and improve f unctionality. The patient has a diagnosis that is related to a somatic or visceral pain etiology. ? ?? I reviewed with the patient the potential risks and side effects with the use of? opioid medications including but not limited to respiratory depression,? sedation, and even . Within the last 12 months I have verified the patient has access to naloxone should? these effects occur. The patient was advised to let? their family know they had Naloxone in case they would need to administer? the medication. I advised the patient to avoid the use of any other? sedation substances including alcohol, THC, and benzodiazepines while? taking opioid medications due to the risk of compounding side effects and? detrimental outcomes. within the last 12 months I have reviewed the DUAL RATE SUPERVISOR, pain treatment agreement and urine drug screen.? ?? A drug screen was completed within the last year, and no aberrancies were noted regarding their use of controlled substances. The patient understands they are subject to the terms and conditions of the pain contract that they have signed. ? ?? I have checked an OARRS report on this patient today and there are no aberrancies noted in the prescribing history.? Plan right suprascapular and axillary nerve block x1 working towards RFA under fluoroscopy for chronic right shoulder pain unresponsive to > 6 weeks of PT, provider guided HEP, heat, ice, tylenol, nsaids continue f/u with orthopedics for left shoulder pain continue tizanidine 4mg TID PRN pain/spasms continue lyrica 150mg TID increase hydrocodone-acetaminophen 5-325mg TID PRN moderate to severe pain 90 tabs to last 30 days as pain and functional ability has worsened over the last two months f/u after injection
== END 2024-10-17 14:06 | disposition home or self-care (01) ==
LOC: PM 14:05
PROVIDERS: PCP Internal Medicine; Visit Provider Nurse Practitioner
DX: M46.1 Sacroiliitis, not elsewhere classified (principal); M25.511 Pain in right shoulder; M79.18 Myalgia, other site; M25.512 Pain in left shoulder; Z79.891 Long term (current) use of opiate analgesic
CPT/HCPCS: G0463

== ENCOUNTER 2024-10-29 07:20 | Day surgery (SDC) | payer MEDICARE, SELFPAY ==
--- OUTSIDE RECORDS SUMMARY | 2024-10-29 07:24 | XMS_ITS | CCD ---
Author Organization [facility] Care Team Providers Care Repairer Finished Metal Name Role Phone BASIM, BARRY H. Unavailable Unavailable BASIM, BARRY H. Unavailable Unavailable BALL, JOHN E Unavailable Unavailable BASIM, BARRY H. Unavailable Unavailable BALL, JOHN E Unavailable Unavailable EBRAHEIM, MARYURI Attending Unavailable EBRAHEIM, MARYURI Admitting Unavailable SYMONE, JOHN Referring Unavailable SYMONE, JOHN Primary Care Unavailable EBRAHEIM, MARYURI Surgeon Unavailable [place] Procedure Practitioner Unavailab le [place] Procedure Practitioner Unavailab TASH Chery Surgeon Unavailable [...] Attending Unavailable BROWN, JORDAN A Referring Unavailable Dimitrios CHAUHAN, Nicki Borden Attending Unavailable Allergies Allergy Classification Reported Allergen(s) Allergy Type Date of Onset Reaction(s) Facility (1 source) [id number]; Translations: [Unknown] Propensity to adverse reactions (disorder) 2 [facility] Repository (20 sources) Cephalexin Drug Allergy 8 GI intolerance [facility] Work Phone: (7 sources) patient allergy list reviewed by nurse or physicia Propensity to adverse reactions 4 Comment:Done [employer] Other Medications Current Medications Medication Drug Class(es) Dates Sig (Normalized) Sig (Original) acetaminophen 500 mg oral tablet (10 sources) Start: 05-22-2024 take 1 tablet by mouth every four hours for pain acetaminophen (Tylenol Extra Strength) 500 MG tablet Indications: Status post shoulder surgery Take 1 tablet (500 mg) by mouth every 4 (four) hours if needed for mild pain 40 tablet 05/22/2024 Active acetaminophen 325 mg / HYDROcodone bitartrate 5 mg oral tablet (20 sources) Opioid Agonist Start: 09-25-2024 take 1 tablet by mouth every twelve hours as needed Hydrocodone-Acetami nophen 5-325 mg tablet Active 1 TAB PO Every 12 hours as needed September 25, 2024 12:00am Start: 05-08-2024 End: 05-15-2024 take 1-2 tablets by mouth every four hours HYDROcodone-acetaminophen (Arcadia) 5-325 MG tablet Indications: Status post shoulder [...] 03/19/24 Status: Ordered Start: 06-30-2023 HYDROcodone-ac etaminophen ([place]cadia) 5-325 MG tablet 06/30/2023 Active Start: 06-30-2023 take 1 tablet by anne th three times daily as needed HYDROcodone-acetaminophen ([place]cad[place]) 5-325 MG tablet TAKE 1 TABLET BY MOUTH 3 TIMES A DAY NEEDED FOR PAIN*MUS LAST 30 DAYS 06/30/2023 Active acetaminophen 325 mg / oxyCODONE hydrochloride 5 mg oral tablet (20 sources) Opioid Agonist Start: 04-27-2024 Percocet 5 mg- 325 mg oral tablet See Instructions, 40 tab(s), Refill(s) 0, 1-2 tab(s) Oral q4hr, [facility]/pharmacy #[id number], 165, cm, 03/19/24 13:53:00 EDT, Height/Length Dosing, 65, kg, 03/19/24 13:53:00 EDT, Weight Dosing Start Date: 04/27/24 Status: Ordered Start: 04-06-2023 Percocet 5 mg- 325 mg oral tablet See Instructions, 40 tab(s), Refill(s) 0, 1-2 tab(s) Oral q4hr, [facility]/pharmacy #[id number], 160, cm, 03/25/23 6:16:00 EDT, [...] pain, # 60 cap(s), Refills(s) 0, Pharmacy: [facility]/pharmacy #[id number], 165, cm, 03/19/24 13:53:00 EDT, Height/Length Dosing, 65, kg, 03/19/24 13:53:00 EDT, Weight Dosing Start Date: 04/27/24 Status: Ordered Start: 04-06-2023 take 1 capsule by mo ut twice daily as needed for pain CeleBREX 100 mg Cap 100 mg = 1 cap(s), Oral, BID, PRN for pain, # 60 cap(s), Refills(s) 0, Pharmacy: [facility]/pharmacy #[id number], 160, cm, 03/25/23 6:16:00 EDT, Height/Length Dosing, 73.5, kg, 03/25/23 6:16:00 EDT, Weight Dosing Start Date: 04/06/23 Status: Ordered cephalexin 500 mg oral capsule (1 source) Cephalosporin Antibacterial Start: 04-06-2023 End: 04-13-2023 take 1 capsule by mouth every eight hours Keflex 500 mg Cap 500 mg = 1 cap(s), Oral, q8hr, X 7 day(s), # 21 cap(s), Refills(s) 0, [id number] 160, cm, 03/25/23 6:16:00 EDT, [...] 2023 2:50pm take 1 tablet by anne every twenty-four hours Citalopram Hydrobromide 10 MG 1 tablet Orally Once a day Active docusate sodium 100 mg oral capsule (3 sources) Start: 04-27-2024 take 1 capsule by mo [facility] twice daily as needed for constipation Colace 100 mg Cap 100 mg = 1 cap(s), Oral, BID, PRN for constipation, # 20 cap(s), Refills(s) 0, Pharmacy: [facility]/pharmacy #[id number], 165, cm, 03/19/24 13:53:00 EDT, Height/Length Dosing, 65, kg, 03/19/24 13:53:00 EDT, Weight Dosing Start Date: 04/27/24 Status: Ordered Start: 04-06-[address] [facility] twice daily as needed for constipation Colace 100 mg Cap 100 mg = 1 cap(s), Oral, BID, PRN for constipation, # 20 cap(s), Refills(s) 0, Pharmacy: [facility]/pharmacy #[id number], 160, cm, 03/25/23 6:16:00 EDT, Height/Length Dosing, 73.5, kg, 03/25/23 6:16:00 EDT, Weight Dosing Start Date: 04/06/23 Status: Ordered leflunomide 10 mg oral tablet (20 sources) Antirheumatic Agent Start: 06-30-2018 End: 09-27-2023 take 1 tablet by mouth once daily Leflunomide (Arava) 10 mg tablet Active 10 MG PO Daily September 27, 2023 12:00am lidocaine 0.05 mg/mg medicated patch (8 sources) Antiarrhythmic, Amide Local Anesthetic Start: 06-13-2024 [...] Start: 11-09-2022 take 1 tablet by anne at bedtime metoprolol 100 mg ER Tab [...] 3:15pm Start: 06-28-[address] [facility] every twelve hours Doxycycline Hyclate 100 MG [...] 28, 2023 3:15pm Start: 03-31-2023 End: 09-25-2024 valACYclovir (Valtrex) 1 g t ablet Take 2,000 mg by mouth in the morning and 2,000 mg before bedtime. 03/31/2023 Active take 2 tablets by mo [facility] every twelve hours valACYclovir HCl 1 [...] monitoring] Episodic Other aftercare (3 sources) Other usp (current) drug therapy; Translations: [Long-term (current) use of other medications] Onset: 09-17-2022 04-17-2024 Episodic Other aftercare (8 sources) Therapeutic drug level - finding; Translations: [Encounter for therapeutic drug level monitoring] Episodic Other aftercare (2 sources) Encounter for therapeutic drug level monitoring; Translations: [Encounter for therapeutic drug level monitoring] Episodic Other aftercare (4 sources) Drug therapy finding; Translations: [Other usp (current) drug therapy] 04-17-2024 Episodic Other circulatory [...] musculoskeletal system and connective tissue Episodic Other connective tissue disease (2 sources) Full thickness rotator cuff tear; Translations: [Complete rotator cuff tear or rupture of left shoulder, not specified as traumatic] 10-18-2024 Episodic Other liver diseases (2 sources) Enzyme [...] Range Facility MRI Shoulder w/o Contrast [place] 09-30-2024 MRI Shoulder w/o Contrast Left Exam [...] Suazo DO Transcribed by: DANISHA Technologist: TED [facility] Basophils Auto (Bld) [#/Vol] on 08-31-2024 Basophils (Bld) [#/Vol] Automated basophil count 0.0-0.1 [facility] Basophils/100 WBC Auto (Bld) on 08-31-2024 Basophils/100 WBC (Bld) Automated basophil % 0.2-2.0 [facility] Cholesterol in LDL Calc [Mas s/Vol]on 08-31-2024 Cholesterol in LDL [Mass/Vol] Cholesterol in LDL [Mass/volume] in Serum or Plasma by calculation [facility] Comment on above: <100 mg/dl [id number] 0-129 mg/dl NEAR OR ABOVE [id number] mg/dl BORDERLINE [id number] mg/dl HIGH>190 mg/dl VERY HIGH Cholesterol in VLDL Calc [Ma ss/Vol]on 08-31-2024 Cholesterol in VLDL [Mass/Vol] Cholesterol in VLDL [Mass/volume] in Serum or Plasma by calculation [facility] Eosinophils/100 WBC Auto (Bl d)on 08-31-2024 Eosinophils/100 WBC (Bld) Automated eosinophil % 0.9-7.0 [facility] Erythrocyte distribution wid th Auto (RBC) [Ratio]on 08-31-2024 Erythrocyte distribution width (RBC) [Ratio] Erythrocyte distribution width [Ratio] by Automated count High 11.0-15.0 [facility] Estimated glomerular filtrat ion rate (GFR) non- Americanon 08-31-2024 GFR/1.73 sq M.predicted among non-blacks MDRD (S/P/Bld) [Vol rate/Area] Estimated glomerular filtration rate (GFR) non- Low >=60 mL/min/1.73 m 2 [facility] Globulin Calc (S) [Mass/Vol] on 08-31-2024 Globulin (S) [Mass/Vol] Serum globulin measurement by calculation (mass/volume) [facility] Hematocrit Auto (Bld) [Volum e fraction]on 08-31-2024 Hematocrit (Bld) [Volume fraction] Hematocrit [Volume Fraction] of Blood by Automated count Low 36.0-48.0 [facility] Hemoglobin [Mass/volume] in Bloodon 08-31-2024 Hemoglobin (Bld) [Mass/Vol] Hemoglobin [Mass/volume] in Blood Low 12.0-16.0 [facility] Laboratory - Chemistry and C hemistry - challengeon 08-31-2024 Albumin [Mass/Vol] 3.8 g/dL 3.4-5.0 [facility] ALP [Catalytic activity/Vol] 60 U/L 46-116 [facility] ALT [Catalytic activity/Vol] 15 U/L 14-59 [facility] AST [Catalytic activity/Vol] 9 U/L Low 15-37 [facility] Bilirubin [Mass/Vol] 0.5 mg/dL 0.2-1.0 [facility] Calcium [Mass/Vol] 9.2 mg/dL 8.5-10.1 [facility] Chloride [Moles/Vol] 107 mmol/L 98-107 [facility] Cholesterol [Mass/Vol] 196 mg/dL <=200 [facility] Cholesterol in HDL [Mass/Vol] 68 mg/dL High 40-60 [facility] Comment on above: > or =60 mg/dl - LOW CARDIOVASCULAR RISK<40 mg/dl - HIGH CARDIOVASCULAR RISK CO2 [Moles/Vol] 26.9 mmol/L 21.0-32.0 [facility] Creatinine [Mass/Vol] 1.29 mg/dL High 0.55-1.02 [facility] GFR/1.73 sq M.predicted MDRD (S/P/Bld) [Vol rate/Area] 50 mL/min/{1.73_m2} Low >=60 mL/min/1.73 m 2 [facility] Glucose [Mass/Vol] 72 mg/dL Low 74-106 [facility] Potassium [Moles/Vol] 4.3 mmol/L 3.5-5.1 [facility] Protein [Mass/Vol] 7.0 g/dL 6.4-8.2 [facility] Sodium [Moles/Vol] 143 mmol/L 136-145 [facility] Triglyceride [Mass/Vol] 66 mg/dL <=150 [facility] TSH Qn 1.339 m[IU]/L 0.358-3.740 [facility] Urea nitrogen [Mass/Vol] 20.0 mg/dL High 7.0-18.0 [facility] Urea nitrogen/Creatinine [Mass ratio] 15.5 mg/mg [facility] Laboratory - Hematology and Cell countson 08-31-2024 Immature granulocytes/100 WBC (Bld) 0.4 % 0.0-0.5 [facility] Leukocytes [#/volume] correc fito for nucleated erythrocytes in Blood by Automated counon 08-31-2024 WBC corrected for nucl RBC Auto (Bld) [#/Vol] Leukocytes [#/volume] corrected for nucleated erythrocytes in Blood by Automated coun 4.0-11.0 [facility] Lymphocytes Auto (Bld) [#/Vo l]on 08-31-2024 Lymphocytes (Bld) [#/Vol] Lymphocytes [#/volume] in Blood by Automated count 1.2-3.8 [facility] Lymphocytes/100 WBC Auto (Bl d)on 08-31-2024 Lymphocytes/100 WBC (Bld) Lymphocytes/100 leukocytes in Blood by Automated count 20.5-60.0 [facility] MCH Auto (RBC) [Entitic mass ]on 08-31-2024 MCH (RBC) [Entitic mass] MCH [Entitic mass] by Automated count 26.7-34.0 [facility] MCHC Auto (RBC) [Mass/Vol]on 08-31-2024 MCHC (RBC) [Mass/Vol] MCHC [Mass/volume] by Automated count 29.9-35.2 [facility] MCV Auto (RBC) [Entitic vol] on 08-31-2024 MCV (RBC) [Entitic vol] MCV [Entitic volume] by Automated count High 81.0-99.0 [facility] Microalbumin [Mass/volume] i n Urineon 08-31-2024 Albumin DL <= 20 mg/L (U) [Mass/Vol] Microalbumin [Mass/volume] in Urine <=30.0 [facility] Monocytes Auto (Bld) [#/Vol] on 08-31-2024 Monocytes (Bld) [#/Vol] Automated blood monocyte count 0.3-0.8 [facility] Monocytes/100 WBC Auto (Bld) on 08-31-2024 Monocytes/100 WBC (Bld) Automated monocyte % 1.7-12.0 [facility] Neutrophils Auto (Bld) [#/Vo l]on 08-31-2024 Neutrophils (Bld) [#/Vol] Neutrophils [#/volume] in Blood by Automated count 1.4-6.5 [facility] Neutrophils/100 WBC Auto (Bl d)on 08-31-2024 Neutrophils/100 WBC (Bld) Automated neutrophil % 43.0-75.0 [facility] No Panel Informationon 08-31 Eosinophils # (Auto) 0.2 10 3/uL 0.0-0.7 [facility] Immature Granulocyte # (Auto) 0.02 10 3/uL 0.00-0.03 [facility] Urine Random Creatinine 176.19 mg/dL 20.00-300.0 0 [facility] Platelet mean volume Auto (B ld) [Entitic vol]on 08-31-2024 Platelet mean volume (Bld) [Entitic vol] Platelet mean volume [Entitic volume] in Blood by Automated count Low 9.5-13.5 [facility] Platelets Auto (Bld) [#/Vol] on 08-31-2024 Platelets (Bld) [#/Vol] Platelets [#/volume] in Blood by Automated count 150-450 [facility] RBC Auto (Bld) [#/Vol]on RBC (Bld) [#/Vol] Erythrocytes [#/volu me] in Blood by Automated count Low 4.20-5.40 [facility] Serum or plasma albumin/glob ulin mass ratioon 08-31-2024 Albumin/Globulin [Mass ratio] Serum or plasma albumin/globulin mass ratio [facility] Serum or plasma anion gap de terminationon 08-31-2024 Anion gap [Moles/Vol] Serum or plasma anion gap determination [facility] Serum or plasma total choles terol/high density lipoprotein (HDL) cholesterol mass albina 08-31-2024 Cholesterol.total/C holesterol in HDL [Mass ratio] Serum or plasma total cholesterol/high density lipoprotein (HDL) cholesterol mass rat [facility] Comment on above: 3.3 - 4.4 LOW RISK4. 4 - 7.1 AVERAGE RISK7.1 - 11.0 MODERATE RISK>11.0 HIGH RISK Urine microalbumin/creatinin e mass ratioon 08-31-2024 Albumin/Creatinine DL <= 20 mg/L (U) [Mass ratio] Urine microalbumin/creatinine mass ratio 0.0-29.9 [facility] Comment on above: NO MICROALBUMINURIA 0-29 MG/GCLINICAL MICROALBUMINURIA 30-300 MG/GMACROALBUMINURIA >300 MG/G Basophils Auto (Bld) [#/Vol] on 06-21-2024 Basophils (Bld) [#/Vol] Automated basophil count 0.0-0.1 [facility] Basophils/100 WBC Auto (Bld) on 06-21-2024 Basophils/100 WBC (Bld) Automated basophil % 0.2-2.0 [facility] Eosinophils/100 WBC Auto (Bl d)on 06-21-2024 Eosinophils/100 WBC (Bld) Automated eosinophil % 0.9-7.0 [facility] Erythrocyte distribution wid th Auto (RBC) [Ratio]on 06-21-2024 Erythrocyte distribution width (RBC) [Ratio] Erythrocyte distribution width [Ratio] by Automated count 11.0-15.0 [facility] Estimated glomerular filtrat ion rate (GFR) non- Americanon 06-21-2024 GFR/1.73 sq M.predicted among non-blacks MDRD (S/P/Bld) [Vol rate/Area] Estimated glomerular filtration rate (GFR) non- Low >=60 mL/min/1.73 m 2 [facility] Globulin Calc (S) [Mass/Vol] on 06-21-2024 Globulin (S) [Mass/Vol] Serum globulin measurement by calculation (mass/volume) [facility] Hematocrit Auto (Bld) [Volum e fraction]on 06-21-2024 Hematocrit (Bld) [Volume fraction] Hematocrit [Volume Fraction] of Blood by Automated count Low 36.0-48.0 [facility] Hemoglobin [Mass/volume] in Bloodon 06-21-2024 Hemoglobin (Bld) [Mass/Vol] Hemoglobin [Mass/volume] in Blood Low 12.0-16.0 [facility] Laboratory - Chemistry and C hemistry - challengeon 06-21-2024 Albumin [Mass/Vol] 3.8 g/dL 3.4-5.0 [facility] ALP [Catalytic activity/Vol] 48 U/L 46-116 [facility] ALT [Catalytic activity/Vol] 13 U/L Low 14-59 [facility] AST [Catalytic activity/Vol] 14 U/L Low 15-37 [facility] Bilirubin [Mass/Vol] 0.5 mg/dL 0.2-1.0 [facility] Calcium [Mass/Vol] 9.1 mg/dL 8.5-10.1 [facility] Chloride [Moles/Vol] 105 mmol/L 98-107 [facility] CO2 [Moles/Vol] 26.1 mmol/L 21.0-32.0 [facility] Creatinine [Mass/Vol] 1.43 mg/dL High 0.55-1.02 [facility] GFR/1.73 sq M.predicted MDRD (S/P/Bld) [Vol rate/Area] 45 mL/min/{1.73_m2} Low >=60 mL/min/1.73 m 2 [facility] Glucose [Mass/Vol] 76 mg/dL 74-106 [facility] Potassium [Moles/Vol] 3.4 mmol/L Low 3.5-5.1 [facility] Protein [Mass/Vol] 6.7 g/dL 6.4-8.2 [facility] Sodium [Moles/Vol] 144 mmol/L 136-145 [facility] Urea nitrogen [Mass/Vol] 18.0 mg/dL 7.0-18.0 [facility] Urea nitrogen/Creatinine [Mass ratio] 12.6 mg/mg [facility] Laboratory - Hematology and Cell countson 06-21-2024 ESR (Bld) [Velocity] 6 mm/h <=30 [facility] Immature granulocytes/100 WBC (Bld) 0.3 % 0.0-0.5 [facility] Leukocytes [#/volume] correc fito for nucleated erythrocytes in Blood by Automated counon 06-21-2024 WBC corrected for nucl RBC Auto (Bld) [#/Vol] Leukocytes [#/volume] corrected for nucleated erythrocytes in Blood by Automated coun Low 4.0-11.0 [facility] Lymphocytes Auto (Bld) [#/Vo l]on 06-21-2024 Lymphocytes (Bld) [#/Vol] Lymphocytes [#/volume] in Blood by Automated count 1.2-3.8 [facility] Lymphocytes/100 WBC Auto (Bl d)on 06-21-2024 Lymphocytes/100 WBC (Bld) Lymphocytes/100 leukocytes in Blood by Automated count 20.5-60.0 [facility] MCH Auto (RBC) [Entitic mass ]on 06-21-2024 MCH (RBC) [Entitic mass] MCH [Entitic mass] by Automated count 26.7-34.0 [facility] MCHC Auto (RBC) [Mass/Vol]on 06-21-2024 MCHC (RBC) [Mass/Vol] MCHC [Mass/volume] by Automated count 29.9-35.2 [facility] MCV Auto (RBC) [Entitic vol] on 06-21-2024 MCV (RBC) [Entitic vol] MCV [Entitic volume] by Automated count 81.0-99.0 [facility] Monocytes Auto (Bld) [#/Vol] on 06-21-2024 Monocytes (Bld) [#/Vol] Automated blood monocyte count 0.3-0.8 [facility] Monocytes/100 WBC Auto (Bld) on 06-21-2024 Monocytes/100 WBC (Bld) Automated monocyte % 1.7-12.0 [facility] Neutrophils Auto (Bld) [#/Vo l]on 06-21-2024 Neutrophils (Bld) [#/Vol] Neutrophils [#/volume] in Blood by Automated count 1.4-6.5 [facility] Neutrophils/100 WBC Auto (Bl d)on 06-21-2024 Neutrophils/100 WBC (Bld) Automated neutrophil % Low 43.0-75.0 [facility] No Panel Informationon 06-21 Eosinophils # (Auto) 0.1 10 3/uL 0.0-0.7 [facility] Immature Granulocyte # (Auto) 0.01 10 3/uL 0.00-0.03 [facility] Platelet mean volume Auto (B ld) [Entitic vol]on 06-21-2024 Platelet mean volume (Bld) [Entitic vol] Platelet mean volume [Entitic volume] in Blood by Automated count Low 9.5-13.5 [facility] Platelets Auto (Bld) [#/Vol] on 06-21-2024 Platelets (Bld) [#/Vol] Platelets [#/volume] in Blood by Automated count 150-450 [facility] RBC Auto (Bld) [#/Vol]on RBC (Bld) [#/Vol] Erythrocytes [#/volu me] in Blood by Automated count Low 4.20-5.40 [facility] Serum or plasma albumin/glob ulin mass ratioon 06-21-2024 Albumin/Globulin [Mass ratio] Serum or plasma albumin/globulin mass ratio [facility] Serum or plasma anion gap de terminationon 06-21-2024 Anion gap [Moles/Vol] Serum or plasma anion gap determination [facility] No Panel Informationon 06-05 Kate Scruggs, ARR T 06/09/2024 1:08 PM L Inj/Asp: L glenohumeral on 06/05/2024 2:26 PM Indications: pain Details: 25 G needle, ultrasound-guided Medications: 2 mL betamethasone acetate-betamethasone sodium phosphate 6 (3-3) MG/ML Consent was given by the patient. [facility] [employer] XR Shoulder - left 2 View[facility] 05-09-2024 Imaging Result: 3 views left shoulder, Grashey/Zanca/outlet, taken today and saved to the permanent medical record are reviewed. No fractures. ACI WNL [facility] [employer] XR Shoulder - left 2 [facility] 05-08-2024 Radiology Study observation (narrative) [facility] Main OR Intraoperative Recor don 04-30-2024 Main OR Intraoperative Record Main OR Intraoperative Record Normal [facility] CBC w/ Auto Diffon 4 Basophils/100 WBC (Bld) 1.3 % Normal 0.0-2.0 [facility] Comment on above: Performed By: #### 2 [id number] ####[facility] [id number] [place] [address] Basophils/Leukocyte s Auto (Bld) [Pure # fraction] 0.1 E9/L Normal 0.0-0.2 [facility] Comment on above: Performed By: #### 2 [id number] ####[facility] [id number] [place] [address] Eosinophils (Bld) [#/Vol] 0.2 E9/L Normal 0.0-0.5 [facility] Comment on above: Performed By: #### 2 [id number] ####[address] [address] Eosinophils/100 WBC (Bld) 3.7 % Normal 0.0-8.0 [facility] Comment on above: Performed By: #### 2 [id number] ####[address] [address] Erythrocyte distribution width (RBC) [Ratio] 15.3 % High 10.9-14.2 [facility] Comment on above: Performed By: #### 2 [id number] ####[address] [address] Hematocrit (Bld) [Volume fraction] 27.7 % Low 34.0-46.0 [facility] Comment on above: Performed By: #### 2 146518 ####[address] [address] Hemoglobin (Bld) [Mass/Vol] 9.6 g/dL Low 12.0-16.0 [facility] Comment on above: Performed By: #### 2 [id number] ####[address] [address] Lymphocytes (Bld) [#/Vol] 0.9 E9/L Low 1.0-4.0 [facility] Comment on above: Performed By: #### 2 [id number] ####[address] [address] Lymphocytes/100 WBC (Bld) 20.4 % Normal 14.0-50.0 [facility] Comment on above: Performed By: #### 2 [id number] ####[address] [address] MCH (RBC) [Entitic mass] 33.7 pg Normal 27.0-34.0 [facility] Comment on above: Performed By: #### 2 [id number] ####[address] [address] MCHC (RBC) [Mass/Vol] 34.6 g/dL Normal 31.4-36.0 [facility] Comment on above: Performed By: #### 2 [id number] ####[address] [place] [address] MCV (RBC) [Entitic vol] 97.3 fL Normal 80.0-100.0 [facility] Comment on above: Performed By: #### 2 629231 ####[address] [address] Monocytes (Bld) [#/Vol] 0.8 E9/L Normal 0.2-1.0 [facility] Comment on above: Performed By: #### 2 [id number] ####[address] [address] Neutrophils (Bld) [#/Vol] 2.4 E9/L Normal 2.0-7.5 [facility] Comment on above: Performed By: #### 2 [id number] ####[address] [address] Neutrophils/100 WBC (Bld) 55.1 % Normal 36.0-75.0 [facility] Comment on above: Performed By: #### 2 [id number] ####[address] [address] Platelet 213.0 E9/L Normal 150.0-500.0 [facility] Comment on above: Performed By: #### 2 [id number] ####[address] [address] Platelet mean volume (Bld) [Entitic vol] 7.0 fL Normal 6.4-10.8 [facility] Comment on above: Performed By: #### 2 062068 ####[address] [address] RBC (Bld) [#/Vol] 2.9 E12/L Low 4.3-5.9 [facility] Comment on above: Performed By: #### 2 [id number] ####[address] [address] WBC corrected for nucl RBC Auto (Bld) [#/Vol] 4.3 E9/L Normal 4.0-11.0 [facility] Comment on above: Result Comment: Mae pheral smear review performed. Performed By: #### 2 [id number] ####[facility] [address] [address] [address] Discharge Instructionson Discharge Instructions Discharge Instructions RADHA [...] has already been scheduled Where: [address] [place] [address]- vushaper (1) Medications What How Much When Instructions Next Dose New acetaminophen-oxycodone (Percocet 5 mg-325 mg oral tablet) See instructions 1-2 tab(s) Oral q4hr Pickup at [facility]/pharmacy #[id number] New celecoxib (CeleBREX 100 mg Cap) 1 Capsules By Mouth 2 times a day as needed for for pain Pickup at [facility]/pharmacy #6177 New docusate (Colace 100 mg Cap) 1 Capsules By Mouth 2 times a day as needed for for constipation Pickup at [facility]/pharmacy #6177 Unchanged buPROPion (Wellbutrin XL 300 mg/ [...] Tablets By Mouth Every day [id number] [address], [place] [phone] What How Much When Comments Stop Taking acetaminophen-hydrocodone (acetaminophen-hydrocodone 325 mg-5 mg oral tablet) 1 Tablets By Mouth Every 6 hours [employer] [place], [place] [facility] AFTER YOUR SHOULDER ARTHROSCOPY [...] band-aids t (more content not included)... Normal [facility] Comment on above: Result Comment: Elec tronically [...] 04-27-2024 Inpatient Patient Summary Inpatient Patient Summary [id number] [facility] Clinical Discharge Instructions PERSON INFORMATION Name: [facility]HA [facility] Admitting Physician: Jordan Yuan DO Attending Physician: Jordan Yuan DO PCP: JOHN ASHBY DO Discharge Diagnosis: Comment: PATIENT EDUCATION INFORMATION Instructions: Iris Yuan - After Your Shoulder Arthroscopy (Custom) Medication Leaflets: Follow up: MEDICATION LIST New Medications [id number], [address], [place] [id number], [phone] acetaminophen-oxycodone (Percocet 5 mg-325 mg oral tablet) [...] By Mouth every 6 hours. Comment: Normal [facility] Main OR PACU I Recordon 04-10 Main OR PACU I Record Main OR PACU I Record PACU Phase I Document Type FT Summary Primary Physician: Jordan Yuan DO Finalized Date/Time: 04/27/24 11:12:00 Pt. Name: RADHA ZAIDI/Sex: 1960 Female Med Rec #: [id number] Physician: Jordan Yuan DO Financial #: [id number] Pt. Type: Room/Bed: [place] [address] Admit/Disch: 04/27/24 05:21:12 - Institution: Case Times [...] By: Ling Kathleen RN 04/27/24 11:12 Normal [facility] Main OR Preoperative Recordo n 04-27-2024 Main OR Preoperative Record Main OR Preoperative Record PreOp Document Type FT Summary Primary Physician: Jordan Yuan DO Finalized Date/Time: 04/27/24 09:02:45 Pt. Name: RADHA ZAIDI Gerardo/Sex: 1960 Female Med Rec #: [id number] Physician: Jordan Yuan DO Financial #: [id number] Pt. Type: A Room/Bed: [place] [address] Admit/Disch: 04/27/24 05:21:12 - Institution: Case Times [...] By: Carli Gomez RN 04/27/24 09:02 Normal [facility] Operative Reporton Operative Report Operative Report Patient: RADHA ZAIDI Age: 63 years Sex: Female : 1960 Associated Diagnoses: None Author: Jordan Yuan DO DATE OF SURGERY: 04/27/2024 SURGEON: Jordan Yuan D.O. [employer] PROCESSOR: Jeff Marshall PREOPERATIVE DIAGNOSIS: Rotator cuff tear, [...] the greater tuberosity was cleared with the Monroe wand to improve visualization. An accessory anterosuperolateral portal was made with outside in technique using spinal needle localization. A passport cannula was placed. Soft tissue was cleared from the lesser tuberosity with the Monroe wand. A bony bleeding bed was created with the arthroscopic bur on the reverse setting. The punch was placed to the anterior portal and used to create a socket for the corkscrew anchor at the upper portion of the lesser tuberosity. The anchor was inserted. The sutures were passed using th (more content not included)... Normal [facility] Comment on above: Result Comment: Elec tronically Signed By: Jordan Yuan DO\.br\Date and Time Signed: 04/27/24 15:13 EDT Outpatient Surgery Discharge Instructionon 04-27-2024 Outpatient Surgery Discharge Instruction Outpatient Surgery Discharge Instruction [place] [address] Patient Discharge Instructions PERSON INFORMATION Name: RADHA ZAIDI Date of : 1960 Current Date: 04/27/2024 07:48:25 PHYSICIANS Admitting Physician: Jordan Yuan DO Discharge Diagnosis: RADHA ZAIDI has been given the following list of follow-up instructions, prescriptions, and patient education materials: IF UNABLE TO CONTACT YOUR PHYSICIAN AND YOU FEEL IT IS AN EMERGENCY, GO TO THE NEAREST EMERGENCY ROOM OR CALL 911 IDYAN CHERYLL J, have received the attached patient education materials/instructions and have verbalized understanding: May we do a follow up call? Yes No I was present when discharge instructions were given ___ Patient Signature Date Clinican/Nurse Signature Date Follow up: Pharmacy Information: You may receive a survey from [employer] asking you to rate your care experience. Your feedback is important and will help us understand what we do well and how we can improve the quality of care we provide to you, your loved ones and our community. It?s an honor to serve you. Thank you for choosing [facility] HERE ARE THE MEDICATION CHANGES THAT OCCURRED DURING YOUR HOSPITAL STAY New Medications [id number], [address], [place] [id number], [phone] acetaminophen-oxycodone (Percocet 5 mg-325 mg oral tablet) [...] every 6 hours. PATIENT EDUCATION INFORMATION Instructions: [place], [place] [facility] AFTER YOUR SHOULDER ARTHROSCOPY [...] follow up (more content not included)... Normal [facility] Proceduralon 04-27-2024 Procedural Procedural Patient: RADHA ZAIDI [...] lido; 22g 50mm insulated echogenic block needle wt US; 10cc .5% bupiv and 133mg exparel in [...] patient tolerated the procedure as expected. 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 Family History: Primary malignant neoplasm of prostate Father Acute myocardial infarction Mother Procedure history: Total shoulder replacement (43722391) on 04/06/2023 at 62 Years. Cervical laminectomy (7420013538). Amputation of finger (784722766). Removal of lung, Partial (82701). Open reduction and internal fixation of fracture Leg (131639286). Foot surgery (9712353287). Lumbar discectomy (453400391). Social History Social & Psychosocial Habits Alcoh (more content not included)... Normal [facility] Basophils Auto (Bld) [#/Vol] on 03-27-2024 Basophils (Bld) [#/Vol] 0.0 10 3/uL 0.0-0.1 [facility] Basophils/100 WBC Auto (Bld) on 03-27-2024 Basophils/100 WBC (Bld) 0.7 % 0.2-2.0 [facility] Eosinophils/100 WBC Auto (Bl d)on 03-27-2024 Eosinophils/100 WBC (Bld) 2.0 % 0.9-7.0 [facility] Erythrocyte distribution wid th Auto (RBC) [Ratio]on 03-27-2024 Erythrocyte distribution width (RBC) [Ratio] 14.7 % 11.0-15.0 [facility] Hematocrit Auto (Bld) [Volum e fraction]on 03-27-2024 Hematocrit (Bld) [Volume fraction] 30.8 % Low 36.0-48.0 [facility] Hemoglobin [Mass/volume] in Bloodon 03-27-2024 Hemoglobin (Bld) [Mass/Vol] 10.0 g/dL Low 12.0-16.0 [facility] Laboratory - Chemistry and C hemistry - challengeon 03-27-2024 Cobalamin (Vitamin B12) [Mass/Vol] 172 pg/mL Abnormal 232-1245 [facility] Comment on above: Performed at: [place] [id number] Director: Lito Matamoros PhD, Phone: [phone] Laboratory - Hematology and Cell countson 03-27-2024 Immature granulocytes/100 WBC (Bld) 0.5 % 0.0-0.5 [facility] Leukocytes [#/volume] correc fito for nucleated erythrocytes in Blood by Automated counon 03-27-2024 WBC corrected for nucl RBC Auto (Bld) [#/Vol] 4.4 10 3/uL 4.0-11.0 [facility] Lymphocytes Auto (Bld) [#/Vo l]on 03-27-2024 Lymphocytes (Bld) [#/Vol] 1.9 10 3/uL 1.2-3.8 [facility] Lymphocytes/100 WBC Auto (Bl d)on 03-27-2024 Lymphocytes/100 WBC (Bld) 42.3 % 20.5-60.0 [facility] MCH Auto (RBC) [Entitic mass ]on 03-27-2024 MCH (RBC) [Entitic mass] 31.9 pg 26.7-34.0 [facility] MCHC Auto (RBC) [Mass/Vol]on 03-27-2024 MCHC (RBC) [Mass/Vol] 32.5 g/dL 29.9-35.2 [facility] MCV Auto (RBC) [Entitic vol] on 03-27-2024 MCV (RBC) [Entitic vol] 98.4 fL 81.0-99.0 [facility] Monocytes Auto (Bld) [#/Vol] on 03-27-2024 Monocytes (Bld) [#/Vol] 0.6 10 3/uL 0.3-0.8 [facility] Monocytes/100 WBC Auto (Bld) on 03-27-2024 Monocytes/100 WBC (Bld) 12.7 % High 1.7-12.0 [facility] Neutrophils Auto (Bld) [#/Vo l]on 03-27-2024 Neutrophils (Bld) [#/Vol] 1.8 10 3/uL 1.4-6.5 [facility] Neutrophils/100 WBC Auto (Bl d)on 03-27-2024 Neutrophils/100 WBC (Bld) 41.8 % Low 43.0-75.0 [facility] No Panel Informationon 03-27 Eosinophils # (Auto) 0.1 10 3/uL 0.0-0.7 [facility] Folate 14.00 ng/mL 8.60-58.90 [facility] Immature Granulocyte # (Auto) 0.02 10 3/uL 0.00-0.03 [facility] Platelet mean volume Auto (B ld) [Entitic vol]on 03-27-2024 Platelet mean volume (Bld) [Entitic vol] 9.3 fL Low 9.5-13.5 [facility] Platelets Auto (Bld) [#/Vol] on 03-27-2024 Platelets (Bld) [#/Vol] 235 10 3/uL 150-450 [facility] RBC Auto (Bld) [#/Vol]on RBC (Bld) [#/Vol] 3.13 10 6/uL Low 4.20-5.40 [facility] Reticulocytes/100 RBC Auto ( Bld)on 03-27-2024 Reticulocytes/100 RBC (Bld) 2.37 % 0.60-3.10 [facility] Serum or plasma methylmalona te measurement (moles/volume)on 03-27-2024 Methylmalonate [Moles/Vol] 195 nmol/L 0-378 [facility] Comment on above: This test was develo ped and its performance characteristicsdetermined by [employer]. It has not been cleared orapproved by the Food and Drug Administration.Performed at: [address] [id number] Director: Goldy Aparicio MD, Phone: [phone] XR Chest 2 Viewson XR Chest 2 [...] mGy = na DAP = na Normal [facility] BMPon 03-19-2024 Anion gap [Moles/Vol] 9 mmol/L Normal 6-16 [facility] Comment on above: Performed By: #### 2 [id number] #### [facility] [address] [place] [address] Calcium [Mass/Vol] 9.1 mg/dL Normal 8.9-11.1 [facility] Comment on above: Performed By: #### 2 [id number] #### [facility] [address] [place] [address] Chloride [Moles/Vol] 109 mmol/L Normal 101-111 [facility] Comment on above: Performed By: #### 2 249123 #### [facility] [address] [place] [address] CO2 [Moles/Vol] 27 mmol/L Normal 21-31 [facility] Comment on above: Performed By: #### 2 979978 #### [facility] [address] [place] [address] Creatinine [Mass/Vol] 1.1 mg/dL Normal 0.5-1.3 [facility] Comment on above: Performed By: #### 2 579797 #### [facility] [address] [place] [address] Glucose [Mass/Vol] 85 mg/dL Normal 55-199 [facility] Comment on above: Performed By: #### 2 707750 #### [facility] [address] [place] [address] Potassium [Moles/Vol] 3.8 mmol/L Normal 3.5-5.3 [facility] Comment on above: Performed By: #### 2 338556 #### [facility] [address] [place] [address] Sodium [Moles/Vol] 141 mmol/L Normal 135-145 [facility] Comment on above: Performed By: #### 2 793724 #### [facility] [address] [place] [address] Urea nitrogen [Mass/Vol] 17 mg/dL Normal 5-21 [facility] Comment on above: Performed By: #### 2 175558 #### [facility] [address] [place] [address] Urea nitrogen/Creatinine [Mass ratio] 16 No Units Normal 10-20 [facility] Comment on above: Performed By: #### 2 656339 #### [facility] [address] [place] [address] CBC w/ Auto Diffon 4 Basophils/100 WBC (Bld) 0.6 % Normal 0.0-2.0 [facility] Comment on above: Performed By: #### 2 828785 #### [facility] [address] [place] [address] Basophils/Leukocyte s Auto (Bld) [Pure # fraction] 0.0 E9/L Normal 0.0-0.2 [facility] Comment on above: Performed By: #### 2 218152 #### [facility] [address] [place] [address] Eosinophils (Bld) [#/Vol] 0.1 E9/L Normal 0.0-0.5 [facility] Comment on above: Performed By: #### 2 713772 #### [facility] [address] [place] [address] Eosinophils/100 WBC (Bld) 1.6 % Normal 0.0-8.0 [facility] Comment on above: Performed By: #### 2 499551 #### [facility] [address] [place] [address] Erythrocyte distribution width (RBC) [Ratio] 14.7 % High 10.9-14.2 [facility] Comment on above: Performed By: #### 2 [id number] #### [facility] [address] [place] [address] Hematocrit (Bld) [Volume fraction] 27.9 % Low 34.0-46.0 [facility] Comment on above: Performed By: #### 2 282054 #### [facility] [address] [place] [address] Hemoglobin (Bld) [Mass/Vol] 9.8 g/dL Low 12.0-16.0 [facility] Comment on above: Performed By: #### 2 575689 #### [facility] [address] [place] [address] Lymphocytes (Bld) [#/Vol] 1.1 E9/L Normal 1.0-4.0 [facility] Comment on above: Performed By: #### 2 588657 #### [facility] [address] [place] [address] Lymphocytes/100 WBC (Bld) 28.9 % Normal 14.0-50.0 [facility] Comment on above: Performed By: #### 2 105058 #### [facility] [address] [place] [address] MCH (RBC) [Entitic mass] 33.8 pg Normal 27.0-34.0 [facility] Comment on above: Performed By: #### 2 856258 #### [facility] [address] [place] [address] MCHC (RBC) [Mass/Vol] 35.1 g/dL Normal 31.4-36.0 [facility] Comment on above: Performed By: #### 2 118335 #### [facility] [address] [place] [address] MCV (RBC) [Entitic vol] 96.2 fL Normal 80.0-100.0 [facility] Comment on above: Performed By: #### 2 369646 #### [facility] [address] [place] [address] Monocytes (Bld) [#/Vol] 0.6 E9/L Normal 0.2-1.0 [facility] Comment on above: Performed By: #### 2 236912 #### [facility] [address] [place] [address] Neutrophils (Bld) [#/Vol] 2.0 E9/L Normal 2.0-7.5 [facility] Comment on above: Performed By: #### 2 623365 #### [facility] [address] [place] [address] Neutrophils/100 WBC (Bld) 52.8 % Normal 36.0-75.0 [facility] Comment on above: Performed By: #### 2 521094 #### [facility] [address] [place] [address] Platelet 211.0 E9/L Normal 150.0-500.0 [facility] Comment on above: Performed By: #### 2 400577 #### [facility] [address] [place] [address] Platelet mean volume (Bld) [Entitic vol] 7.0 fL Normal 6.4-10.8 [facility] Comment on above: Performed By: #### 2 680123 #### [facility] [address] [place] [address] RBC (Bld) [#/Vol] 2.9 E12/L Low 4.3-5.9 [facility] Comment on above: Performed By: #### 2 401727 #### [facility] [address] [place] [address] WBC corrected for nucl RBC Auto (Bld) [#/Vol] 3.8 E9/L Low 4.0-11.0 [facility] Comment on above: Result Comment: Mae pheral smear review performed. Performed By: #### 2 286579 #### [facility] [address] [place] [address] CHEMISTRYOrdered By: SYSTEM SYSTEM on 03-19-2024 Anion [...] 03-19-2024 eGFR 56 mL/min/1.73 m2 Low >=59 [facility] Comment on above: Order Comment: Order added by Discern Expert. Performed By: #### 1 [id number] #### [facility] [address] [place] [address] Basophils Auto (Bld) [#/Vol] on 02-14-2024 Basophils (Bld) [#/Vol] 0.0 10 3/uL 0.0-0.1 [facility] Basophils/100 WBC Auto (Bld) on 02-14-2024 Basophils/100 WBC (Bld) 0.8 % 0.2-2.0 [facility] Eosinophils/100 WBC Auto (Bl d)on 02-14-2024 Eosinophils/100 WBC (Bld) 1.5 % 0.9-7.0 [facility] Erythrocyte distribution wid th Auto (RBC) [Ratio]on 02-14-2024 Erythrocyte distribution width (RBC) [Ratio] 15.1 % High 11.0-15.0 [facility] Hematocrit Auto (Bld) [Volum e fraction]on 02-14-2024 Hematocrit (Bld) [Volume fraction] 35.4 % Low 36.0-48.0 [facility] Hemoglobin [Mass/volume] in Bloodon 02-14-2024 Hemoglobin (Bld) [Mass/Vol] 11.0 g/dL Low 12.0-16.0 [facility] Iron binding capacity [Mass/ volume] in Serum or Plasmaon 02-14-2024 Iron binding capacity [Mass/Vol] 303.0 ug/dL 250.0-450.0 [facility] Iron saturation [Mass Fracti on] in Serum or Plasmaon 02-14-2024 Iron saturation [Mass fraction] 81.2 % [facility] Laboratory - Chemistry and C hemistry - challengeon 02-14-2024 Cobalamin (Vitamin B12) [Mass/Vol] 225.0 pg/mL 193.0-986.0 [facility] Ferritin [Mass/Vol] 338.0 ng/mL High 8.0-252.[address] [facility] Iron [Mass/Vol] 246.0 ug/dL High 50.0-170.0 [facility] Laboratory - Hematology and Cell countson 02-14-2024 Immature granulocytes/100 WBC (Bld) 0.8 % High 0.0-0.5 [facility] Leukocytes [#/volume] correc fito for nucleated erythrocytes in Blood by Automated counon 02-14-2024 WBC corrected for nucl RBC Auto (Bld) [#/Vol] 4.7 10 3/uL 4.0-11.0 [facility] Lymphocytes Auto (Bld) [#/Vo l]on 02-14-2024 Lymphocytes (Bld) [#/Vol] 2.3 10 3/uL 1.2-3.8 [facility] Lymphocytes/100 WBC Auto (Bl d)on 02-14-2024 Lymphocytes/100 WBC (Bld) 48.7 % 20.5-60.0 [facility] MCH Auto (RBC) [Entitic mass ]on 02-14-2024 MCH (RBC) [Entitic mass] 31.9 pg 26.7-34.0 [facility] MCHC Auto (RBC) [Mass/Vol]on 02-14-2024 MCHC (RBC) [Mass/Vol] 31.1 g/dL 29.9-35.2 [facility] MCV Auto (RBC) [Entitic vol] on 02-14-2024 MCV (RBC) [Entitic vol] 102.6 fL High 81.0-99.0 [facility] Monocytes Auto (Bld) [#/Vol] on 02-14-2024 Monocytes (Bld) [#/Vol] 0.6 10 3/uL 0.3-0.8 [facility] Monocytes/100 WBC Auto (Bld) on 02-14-2024 Monocytes/100 WBC (Bld) 13.3 % High 1.7-12.0 [facility] Neutrophils Auto (Bld) [#/Vo l]on 02-14-2024 Neutrophils (Bld) [#/Vol] 1.7 10 3/uL 1.4-6.5 [facility] Neutrophils/100 WBC Auto (Bl d)on 02-14-2024 Neutrophils/100 WBC (Bld) 34.9 % Low 43.0-75.0 [facility] No Panel Informationon 02-13 Eosinophils # (Auto) 0.1 10 3/uL 0.0-0.7 [facility] Immature Granulocyte # (Auto) 0.04 10 3/uL High 0.00-0.03 [facility] Folate 9.40 ng/mL 8.60-58.90 [facility] Platelet mean volume Auto (B ld) [Entitic vol]on 02-14-2024 Platelet mean volume (Bld) [Entitic vol] 9.1 fL Low 9.5-13.5 [facility] Platelets Auto (Bld) [#/Vol] on 02-14-2024 Platelets (Bld) [#/Vol] 197 10 3/uL 150-450 [facility] RBC Auto (Bld) [#/Vol]on RBC (Bld) [#/Vol] 3.45 10 6/uL Low 4.20-5.40 [facility] Basophils Auto (Bld) [#/Vol] on 02-02-2024 Basophils (Bld) [#/Vol] 0.0 10 3/uL 0.0-0.1 [facility] Basophils/100 WBC Auto (Bld) on 02-02-2024 Basophils/100 WBC (Bld) 0.8 % 0.2-2.0 [facility] Eosinophils/100 WBC Auto (Bl d)on 02-02-2024 Eosinophils/100 WBC (Bld) 2.1 % 0.9-7.0 [facility] Erythrocyte distribution wid th Auto (RBC) [Ratio]on 02-02-2024 Erythrocyte distribution width (RBC) [Ratio] 14.2 % 11.0-15.0 [facility] Estimated glomerular filtrat ion rate (GFR) non- Americanon 02-02-2024 GFR/1.73 sq M.predicted among non-blacks MDRD (S/P/Bld) [Vol rate/Area] 51 mL/min/{1.73_m2} Low >=60 [facility] Globulin Calc (S) [Mass/Vol] on 02-02-2024 Globulin (S) [Mass/Vol] 2.9 g/dL [facility] Hematocrit Auto (Bld) [Volum e fraction]on 02-02-2024 Hematocrit (Bld) [Volume fraction] 31.9 % Low 36.0-48.0 [facility] Hemoglobin [Mass/volume] in Bloodon 02-02-2024 Hemoglobin (Bld) [Mass/Vol] 10.2 g/dL Low 12.0-16.0 [facility] Laboratory - Chemistry and C hemistry - challengeon 02-02-2024 Albumin [Mass/Vol] 3.9 g/dL 3.4-5.0 [facility] ALP [Catalytic activity/Vol] 48 U/L 46-116 [facility] ALT [Catalytic activity/Vol] 20 U/L 14-59 [facility] AST [Catalytic activity/Vol] 23 U/L 15-37 [facility] Bilirubin [Mass/Vol] 0.5 mg/dL 0.2-1.0 [facility] Calcium [Mass/Vol] 9.1 mg/dL 8.5-10.1 [facility] Chloride [Moles/Vol] 108 mmol/L High 98-107 [facility] CO2 [Moles/Vol] 24.8 mmol/L 21.0-32.0 [facility] Creatinine [Mass/Vol] 1.09 mg/dL High 0.55-1.02 [facility] GFR/1.73 sq M.predicted MDRD (S/P/Bld) [Vol rate/Area] mL/min/{1.73_m2} >=60 [facility] Glucose [Mass/Vol] 87 mg/dL 74-106 [facility] Potassium [Moles/Vol] 3.9 mmol/L 3.5-5.1 [facility] Protein [Mass/Vol] 6.8 g/dL 6.4-8.2 [facility] Sodium [Moles/Vol] 144 mmol/L 136-145 [facility] Urea nitrogen [Mass/Vol] 17.0 mg/dL 7.0-18.0 [facility] Urea nitrogen/Creatinine [Mass ratio] 15.6 mg/mg [facility] Laboratory - Hematology and Cell countson 02-02-2024 ESR (Bld) [Velocity] 12 mm/h <=30 [facility] Immature granulocytes/100 WBC (Bld) 0.5 % 0.0-0.5 [facility] Leukocytes [#/volume] correc fito for nucleated erythrocytes in Blood by Automated counon 02-02-2024 WBC corrected for nucl RBC Auto (Bld) [#/Vol] 3.8 10 3/uL Low 4.0-11.0 [facility] Lymphocytes Auto (Bld) [#/Vo l]on 02-02-2024 Lymphocytes (Bld) [#/Vol] 1.5 10 3/uL 1.2-3.8 [facility] Lymphocytes/100 WBC Auto (Bl d)on 02-02-2024 Lymphocytes/100 WBC (Bld) 40.3 % 20.5-60.0 [facility] MCH Auto (RBC) [Entitic mass ]on 02-02-2024 MCH (RBC) [Entitic mass] 31.7 pg 26.7-34.0 [facility] MCHC Auto (RBC) [Mass/Vol]on 02-02-2024 MCHC (RBC) [Mass/Vol] 32.0 g/dL 29.9-35.2 [facility] MCV Auto (RBC) [Entitic vol] on 02-02-2024 MCV (RBC) [Entitic vol] 99.1 fL High 81.0-99.0 [facility] Monocytes Auto (Bld) [#/Vol] on 02-02-2024 Monocytes (Bld) [#/Vol] 0.6 10 3/uL 0.3-0.8 [facility] Monocytes/100 WBC Auto (Bld) on 02-02-2024 Monocytes/100 WBC (Bld) 16.1 % High 1.7-12.0 [facility] Neutrophils Auto (Bld) [#/Vo l]on 02-02-2024 Neutrophils (Bld) [#/Vol] 1.5 10 3/uL 1.4-6.5 [facility] Neutrophils/100 WBC Auto (Bl d)on 02-02-2024 Neutrophils/100 WBC (Bld) 40.2 % Low 43.0-75.0 [facility] No Panel Informationon 02-01 Eosinophils # (Auto) 0.1 10 3/uL 0.0-0.7 [facility] Immature Granulocyte # (Auto) 0.02 10 3/uL 0.00-0.03 [facility] Platelet mean volume Auto (B ld) [Entitic vol]on 02-02-2024 Platelet mean volume (Bld) [Entitic vol] 9.3 fL Low 9.5-13.5 [facility] Platelets Auto (Bld) [#/Vol] on 02-02-2024 Platelets (Bld) [#/Vol] 236 10 3/uL 150-450 [facility] RBC Auto (Bld) [#/Vol]on RBC (Bld) [#/Vol] 3.22 10 6/uL Low 4.20-5.40 [facility] Serum or plasma albumin/glob ulin mass ratioon 02-02-2024 Albumin/Globulin [Mass ratio] 1.3 {ratio} [facility] Serum or plasma anion gap de terminationon 02-02-2024 Anion gap [Moles/Vol] 15.1 mmol/L [facility] XR Shoulder - right 2 Viewso n 11-25-2023 Imaging Result: 4 views right shoulder, Grashey/Zanca/outlet/axilla ry, taken today and saved to the permanent medical record. Prosthesis is unchanged in position and alignment. Fracture at the base of the acromion unchanged in appearance. [facility] XR Shoulder - right 2 Viewso n 11-15-2023 Radiology Study observation (narrative) [facility] Office Visiton 11-04-2023 Follow-up visit [id number] Alba Zaidi 1960 F Date Provider Department Center 11/04/2023 Jerry[facility]OL[facility] Family History Family history unknown: Yes Level of Service:93155 [place] OFFICE/OUTPATIENT ESTABLISHED MOD MDM 30 MIN Reason for Visit and Comments: Follow-up [007244] - 2 year Patient has been taking metoprolol 1 tablet QD Normal [facility] CT Upper Extremity w/o Contr ast [...] Fields MD Transcribed by: DANISHA Technologist: ARNULFO Gruber [facility] Lab Miscellaneous-LCon Lab Miscellaneous COMMENT Invalid Interpretation Code [facility] Comment on above: Result Comment: Test Ordered: [id number] Interleukin-6, Serum Interleukin-6, Serum <2.5 pg/mL Reference [...] intubation or mechanical ventilation. Performed at: [address] [id number] PhD Saturnino Morse Performed By: #### 1 [id number] ####[facility] [id number] [place] [address] CBC w/ Auto Diffon 4 Basophil Absolute 0.0 E9/L Normal 0.0-0.2 [facility] Comment on above: Performed By: #### 2 [id number], [id number], [id number] #### [facility] [address] [place] [address] Basophils/100 WBC (Bld) 0.4 % Normal 0.0-2.0 [facility] Comment on above: Performed By: #### 2 205714, [id number], [id number] #### [facility] [address] [place] [address] Eos Absolute 0.0 E9/L Normal 0.0-0.5 [facility] Comment on above: Performed By: #### 2 [id number], [id number], [id number] #### [facility] [address] [place] [address] Eosinophils/100 WBC (Bld) 0.2 % Normal 0.0-8.0 [facility] Comment on above: Performed By: #### 2 054866, [id number], [id number] #### [facility] [address] [place] [address] Erythrocyte distribution width (RBC) [Ratio] 14.3 % High 10.9-14.2 [facility] Comment on above: Performed By: #### 2 [id number], [id number], [id number] #### [facility] [address] [place] [address] Hematocrit (Bld) [Volume fraction] 40.0 % Normal 34.0-46.0 [facility] Comment on above: Performed By: #### 2 604361, [id number], [id number] #### [facility] [address] [place] [address] Hemoglobin (Bld) [Mass/Vol] 12.7 g/dL Normal 12.0-16.0 [facility] Comment on above: Performed By: #### 2 163600, 5588289, [id number] #### [facility] [address] [place] [address] Lymph Absolute 0.9 E9/L Low 1.0-4.0 [facility] Comment on above: Performed By: #### 2 126379, 7482524, 92728445 #### [facility] [address] [place] [address] Lymphocytes/100 WBC (Bld) 25.2 % Normal 14.0-50.0 [facility] Comment on above: Performed By: #### 2 926910, 1639543, 17894813 #### [facility] [address] [place] [address] MCH (RBC) [Entitic mass] 30.6 pg Normal 27.0-34.0 [facility] Comment on above: Performed By: #### 2 173010, 6677951, 18809704 #### [facility] [address] [place] [address] MCHC (RBC) [Mass/Vol] 31.7 g/dL Normal 31.4-36.0 [facility] Comment on above: Performed By: #### 2 032832, 5433700, 70099799 #### [facility] [address] [place] [address] MCV (RBC) [Entitic vol] 96.5 fL Normal 80.0-100.0 [facility] Comment on above: Performed By: #### 2 368837, 5870122, 24522213 #### [facility] [address] [place] [address] [place] Absolute 0.3 E9/L Normal 0.2-1.0 [facility] Comment on above: Performed By: #### 2 906770, 6828249, 08732794 #### [facility] [address] [place] [address] Monocytes/100 WBC (Bld) 7.3 % Normal 4.0-14.0 [facility] Comment on above: Performed By: #### 2 960695, 2180726, 99756547 #### [facility] [address] [place] [address] Neutro Absolute 2.3 E9/L Normal 2.0-7.5 [facility] Comment on above: Performed By: #### 2 318060, 7483759, 20559266 #### [facility] [address] [place] [address] Neutro Auto 66.9 % Normal 36.0-75.0 [facility] Comment on above: Performed By: #### 2 680401, 0779880, 07752331 #### [facility] [address] [place] [address] Platelet 257.0 E9/L Normal 150.0-500.0 [facility] Comment on above: Performed By: #### 2 338112, 3449466, 51603771 #### [facility] [address] [place] [address] Platelet mean volume (Bld) [Entitic vol] 7.4 fL Normal 6.4-10.8 [facility] Comment on above: Performed By: #### 2 843838, 5680516, 34973898 #### [facility] [address] [place] [address] RBC 4.1 E12/L Low 4.3-5.9 [facility] Comment on above: Performed By: #### 2 232805, 5073769, 98720384 #### [facility] [address] [place] [address] WBC 3.4 E9/L Low 4.0-11.0 [facility] Comment on above: Performed By: #### 2 563073, 1081081, 46032225 #### [facility] [address] [place] [address] CHEMISTRYOrdered By: SYSTEM SYSTEM on 09-06-2023 CRP mg/dL Normal <=1.9mg/dL Remisol Chem CRPon 09-06-2023 CRP [Mass/Vol] mg/L Normal <=1.9 [facility] Comment on above: Performed By: #### 2 042950, 5891419, 65085689 #### [facility] [address] [place] [address] Consent for Treatmenton 08-12 Consent for Treatment [id number]#1.00TIFF Normal [facility] HEMATOLOGYOrdered By: SYSTEM SYSTEM on 09-06-2023 Basophil [...] Normal 80.0 - 100.0 fL Remisol Heme [place] Absolute 0.3 E9/L Normal 0.2 - 1.0 [...] 14 mm/h Normal 0 - 34 mm/hr [facility] Heme[facility] Miscellaneous-LCon 09-06 Test Code 773930 Invalid Interpretation Code [facility] Comment on above: Performed By: #### 1 [id number] ####[facility] [address] [place] [address] Test Name interleukin 6 Invalid Interpretation Code [facility] Comment on above: Performed By: #### 1 [id number] ####[facility] [address] [place] [address] Physician Orderon 09-06-2023 Physician Order [id number]#1.00TIFF Normal [facility] Testing Ordered By: Jojo Dru on 09-06-2023 Test Code 271018 1 Invalid Interpretation Code [facility] SendOutsSS Test Name interleukin 6 Invalid Interpretation Code [facility] Sed Rate Automatedon 024 ESR (Bld) [Velocity] 14 mm/h Normal 0-34 [facility] Comment on above: Performed By: #### 2 026751, 3337895, 76277945 #### [facility] [address] [place] [address] Physician Orderon 08-31-2023 Physician Order [id number]#1.00TIFF Normal [facility] Basophils Auto (Bld) [#/Vol] on 08-30-2023 Basophils (Bld) [#/Vol] 0.0 10 3/uL 0.0-0.1 [facility] Basophils/100 WBC Auto (Bld) on 08-30-2023 Basophils/100 WBC (Bld) 0.8 % 0.2-2.0 [facility] Cholesterol in LDL Calc [Mas s/Vol]on 08-30-2023 Cholesterol in LDL [Mass/Vol] 152.0 mg/dL [facility] Comment on above: <100 mg/dl [id number] 0-129 mg/dl NEAR OR ABOVE [id number] mg/dl BORDERLINE [id number] mg/dl HIGH>190 mg/dl VERY HIGH Cholesterol in VLDL Calc [Ma ss/Vol]on 08-30-2023 Cholesterol in VLDL [Mass/Vol] 20.2 mg/dL [facility] Eosinophils/100 WBC Auto (Bl d)on 08-30-2023 Eosinophils/100 WBC (Bld) 4.2 % 0.9-7.0 [facility] Erythrocyte distribution wid th Auto (RBC) [Ratio]on 08-30-2023 Erythrocyte distribution width (RBC) [Ratio] 13.4 % 11.0-15.0 [facility] Estimated glomerular filtrat ion rate (GFR) non- Americanon 08-30-2023 GFR/1.73 sq M.predicted among non-blacks MDRD (S/P/Bld) [Vol rate/Area] 59 mL/min/{1.73_m2} >=60 [facility] Globulin Calc (S) [Mass/Vol] on 08-30-2023 Globulin (S) [Mass/Vol] 3.4 g/dL [facility] Hematocrit Auto (Bld) [Volum e fraction]on 08-30-2023 Hematocrit (Bld) [Volume fraction] 39.5 % 36.0-48.0 [facility] Hemoglobin [Mass/volume] in Bloodon 08-30-2023 Hemoglobin (Bld) [Mass/Vol] 12.5 g/dL 12.0-16.0 [facility] Laboratory - Chemistry and C hemistry - challengeon 08-30-2023 Albumin [Mass/Vol] 3.7 g/dL 3.4-5.0 [facility] ALP [Catalytic activity/Vol] 45 U/L 46-116 [facility] ALT [Catalytic activity/Vol] 23 U/L 14-59 [facility] AST [Catalytic activity/Vol] 21 U/L 15-37 [facility] Bilirubin [Mass/Vol] 0.4 mg/dL 0.2-1.0 [facility] Calcium [Mass/Vol] 9.0 mg/dL 8.5-10.1 [facility] Chloride [Moles/Vol] 106 mmol/L 98-107 [facility] Cholesterol [Mass/Vol] 246 mg/dL <=200 [facility] Cholesterol in HDL [Mass/Vol] 74 mg/dL 40-60 [facility] Comment on above: > or =60 mg/dl - LOW CARDIOVASCULAR RISK<40 mg/dl - HIGH CARDIOVASCULAR RISK CO2 [Moles/Vol] 25.5 mmol/L 21.0-32.0 [facility] Creatinine [Mass/Vol] 0.96 mg/dL 0.55-1.02 [facility] GFR/1.73 sq M.predicted MDRD (S/P/Bld) [Vol rate/Area] mL/min/{1.73_m2} >=60 [facility] Glucose [Mass/Vol] 86 mg/dL 74-106 [facility] Potassium [Moles/Vol] 3.8 mmol/L 3.5-5.1 [facility] Protein [Mass/Vol] 7.1 g/dL 6.4-8.2 [facility] Sodium [Moles/Vol] 142 mmol/L 136-145 [facility] Triglyceride [Mass/Vol] 101 mg/dL <=150 [facility] TSH Qn 1.531 m[IU]/L 0.358-3.740 [facility] Urea nitrogen [Mass/Vol] 20.0 mg/dL 7.0-18.0 [facility] Urea nitrogen/Creatinine [Mass ratio] 20.8 mg/mg [facility] Laboratory - Hematology and Cell countson 08-30-2023 ESR (Bld) [Velocity] 16 mm/h <=30 [facility] Immature granulocytes/100 WBC (Bld) 0.3 % 0.0-0.5 [facility] Leukocytes [#/volume] correc fito for nucleated erythrocytes in Blood by Automated counon 08-30-2023 WBC corrected for nucl RBC Auto (Bld) [#/Vol] 3.8 10 3/uL 4.0-11.0 [facility] Lymphocytes Auto (Bld) [#/Vo l]on 08-30-2023 Lymphocytes (Bld) [#/Vol] 1.7 10 3/uL 1.2-3.8 [facility] Lymphocytes/100 WBC Auto (Bl d)on 08-30-2023 Lymphocytes/100 WBC (Bld) 44.8 % 20.5-60.0 [facility] MCH Auto (RBC) [Entitic mass ]on 08-30-2023 MCH (RBC) [Entitic mass] 31.1 pg 26.7-34.0 [facility] MCHC Auto (RBC) [Mass/Vol]on 08-30-2023 MCHC (RBC) [Mass/Vol] 31.6 g/dL 29.9-35.2 [facility] MCV Auto (RBC) [Entitic vol] on 08-30-2023 MCV (RBC) [Entitic vol] 98.3 fL 81.0-99.0 [facility] Monocytes Auto (Bld) [#/Vol] on 08-30-2023 Monocytes (Bld) [#/Vol] 0.5 10 3/uL 0.3-0.8 [facility] Monocytes/100 WBC Auto (Bld) on 08-30-2023 Monocytes/100 WBC (Bld) 14.1 % 1.7-12.0 [facility] Neutrophils Auto (Bld) [#/Vo l]on 08-30-2023 Neutrophils (Bld) [#/Vol] 1.4 10 3/uL 1.4-6.5 [facility] Neutrophils/100 WBC Auto (Bl d)on 08-30-2023 Neutrophils/100 WBC (Bld) 35.8 % 43.0-75.0 [facility] No Panel Informationon 08-30 Eosinophils # (Auto) 0.2 10 3/uL 0.0-0.7 [facility] Immature Granulocyte # (Auto) 0.01 10 3/uL 0.00-0.03 [facility] Platelet mean volume Auto (B ld) [Entitic vol]on 08-30-2023 Platelet mean volume (Bld) [Entitic vol] 9.1 fL 9.5-13.5 [facility] Platelets Auto (Bld) [#/Vol] on 08-30-2023 Platelets (Bld) [#/Vol] 181 10 3/uL 150-450 [facility] RBC Auto (Bld) [#/Vol]on RBC (Bld) [#/Vol] 4.02 10 6/uL 4.20-5.40 [facility] Serum or plasma albumin/glob ulin mass ratioon 08-30-2023 Albumin/Globulin [Mass ratio] 1.1 {ratio} [facility] Serum or plasma anion gap de terminationon 08-30-2023 Anion gap [Moles/Vol] 14.3 mmol/L [facility] Serum or plasma total choles terol/high density lipoprotein (HDL) cholesterol mass albina 08-30-2023 Cholesterol.total/C holesterol in HDL [Mass ratio] 3.3 {ratio} [facility] Comment on above: 3.3 - 4.4 [...] No obvious fractures at the coracoid process. [facility] [employer] XR Shoulder - right 2 Viewso n 08-18-2023 Radiology Study observation (narrative) [facility] IntraOperative Documentson 1 IntraOperative Documents [id number]#1.00CD:127 Normal [facility] Auto Diffon 04-07-2023 Basophils/100 WBC (Bld) 0.2 % Normal 0.0-2.0 [facility] Comment on above: Order Comment: Order Added by Discern Expert. Performed By: #### 2 022737, 5309041, 4386752, 1781573, 28045258, 3924282 #### [facility] [address] [place] [address] Basophils/Leukocyte s Auto (Bld) [Pure # fraction] 0.0 E9/L Normal 0.0-0.2 [facility] Comment on above: Order Comment: Order Added by Discern Expert. Performed By: #### 2 718828, 1029395, 3511141, 7787919, 89159216, 9150586 #### [facility] [address] [place] [address] Eosinophils/100 WBC (Bld) 0.0 % Normal 0.0-8.0 [facility] Comment on above: Order Comment: Order Added by Discern Expert. Performed By: #### 2 338262, 1370114, 8085287, 9928282, 16012591, 8149418 #### [facility] [address] [place] [address] Eosinophils/Leukocy elli Auto (Bld) [Pure # fraction] 0.0 E9/L Normal 0.0-0.5 [facility] Comment on above: Order Comment: Order Added by Discern Expert. Performed By: #### 2 505754, 9551570, 6890645, 1997907, 29519628, 7019975 #### [facility] [address] [place] [address] Lymphocytes/100 WBC (Bld) 7.9 % Low 14.0-50.0 [facility] Comment on above: Order Comment: Order Added by Discern Expert. Performed By: #### 2 542221, 9555797, 4067611, 5092833, 79221705, 0098808 #### [facility] [address] [place] [address] Lymphocytes/Leukocy elli Auto (Bld) [Pure # fraction] 0.8 E9/L Low 1.0-4.0 [facility] Comment on above: Order Comment: Order Added by Discern Expert. Performed By: #### 2 062884, 6451402, 5959348, 3674347, 53550116, 8259510 #### [facility] [address] [place] [address] Monocytes/100 WBC (Bld) 14.0 % Normal 4.0-14.0 [facility] Comment on above: Order Comment: Order Added by Discern Expert. Performed By: #### 2 591005, 1091013, 2598290, 0978816, 59001405, 2603337 #### [facility] [address] [place] [address] Monocytes/Leukocyte s Auto (Bld) [Pure # fraction] 1.3 E9/L High 0.2-1.0 [facility] Comment on above: Order Comment: Order Added by Discern Expert. Performed By: #### 2 198106, 8225420, 9393644, 3775964, 74535285, 7624382 #### [facility] [address] [place] [address] Neutrophils/100 WBC (Bld) 77.9 % High 36.0-75.0 [facility] Comment on above: Order Comment: Order Added by Discern Expert. Performed By: #### 2 272317, 6400447, 9252501, 1245190, 25315114, 4733160 #### [facility] [address] [place] [address] Neutrophils/Leukocy elli Auto (Bld) [Pure # fraction] 7.5 E9/L Normal 2.0-7.5 [facility] Comment on above: Order Comment: Order Added by Discern Expert. Performed By: #### 2 642681, 2710930, 0099078, 9339499, 24511477, 8402129 #### [facility] [address] [place] [address] BUNon 04-07-2023 Urea nitrogen [Mass/Vol] 20 mg/dL Normal 5-21 [facility] Comment on above: Performed By: #### 2 394784, 6614178, 7269478, 7645918, 06172967, 9629242 #### [facility] [address] [place] [address] CBC w/ Auto Diffon Erythrocyte distribution width (RBC) [Ratio] 14.6 % High 10.9-14.2 [facility] Comment on above: Performed By: #### 2 687573, 5073327, 7342596, 2455498, 78254844, 0599480 #### [facility] [address] [place] [address] Hematocrit (Bld) [Volume fraction] 29.7 % Low 34.0-46.0 [facility] Comment on above: Performed By: #### 2 798619, 1082302, 1610972, 8447889, 28289504, 2143274 #### [facility] [address] [place] [address] Hemoglobin (Bld) [Mass/Vol] 10.0 g/dL Low 12.0-16.0 [facility] Comment on above: Performed By: #### 2 581727, 4855508, 4319763, 4719707, 18365459, 4542231 #### [facility] [address] [place] [address] MCH (RBC) [Entitic mass] 32.5 pg Normal 27.0-34.0 [facility] Comment on above: Performed By: #### 2 234230, 0909797, 3413960, 3524946, 63338453, 1517856 #### [facility] [address] [place] [address] MCHC (RBC) [Mass/Vol] 33.6 g/dL Normal 31.4-36.0 [facility] Comment on above: Performed By: #### 2 751068, 9925395, 5020171, 0715907, 75643339, 6338106 #### [facility] [address] [place] [address] MCV (RBC) [Entitic vol] 96.7 fL Normal 80.0-100.0 [facility] Comment on above: Performed By: #### 2 004099, 1990055, 6447207, 2663863, 98776816, 3472059 #### [facility] [address] [place] [address] Platelet mean volume (Bld) [Entitic vol] 7.1 fL Normal 6.4-10.8 [facility] Comment on above: Performed By: #### 2 545067, 3198169, 8768650, 3952624, 87599186, 2701851 #### [facility] [address] [place] [address] Platelets (Bld) [#/Vol] 215.0 E9/L Normal 150.0-500.0 [facility] Comment on above: Performed By: #### 2 698828, 8245037, 3813528, 4844855, 49698734, 6351008 #### [facility] [address] [place] [address] RBC (Bld) [#/Vol] 3.1 E12/L Low 4.3-5.9 [facility] Comment on above: Performed By: #### 2 070800, 2951707, 8734241, 9519414, 34987095, 9218253 #### [facility] [address] [place] [address] WBC corrected for nucl RBC Auto (Bld) [#/Vol] 9.6 E9/L Normal 4.0-11.0 [facility] Comment on above: Performed By: #### 2 187408, 9792735, 6734760, 3733065, 36316694, 0615521 #### [facility] [address] [place] [address] CHEMISTRYOrdered By: SYSTEM SYSTEM on 04-07-2023 Anion gap [Moles/Vol] 6 mmol/L Normal 6 - 16 mEq/L [facility] Chloride [Moles/Vol] 118 mmol/L High 101 - 111 mmol/L [facility] CO2 [Moles/Vol] 23 mmol/L Normal 21 - 31 mmol/L [facility] Creatinine [Mass/Vol] 0.9 mg/dL Normal 0.5 - 1.3 mg/dL [facility] Remisol GFR/1.73 sq M.predicted among non-blacks MDRD (S/P/Bld) [Vol rate/Area] 72 mL/min/1.73 m2 Normal >=59mL/min/ 1.73 m2 [facility] Comment on above: Interpretive Data: C hronic kidney disease could be indicated at eGFR's of less than 60 mL/min/1.73m2. Kidney failure is indicated at less than 15 mL/min/1.73m2. Potassium [Moles/Vol] 4.0 mmol/L Normal 3.5 - 5.3 mmol/L [facility] Remisol Sodium [Moles/Vol] 143 mmol/L Normal 135 - 145 mmol/L [facility] Rem[facility] Urea nitrogen [Mass/Vol] 20 mg/dL Normal 5 - 21 mg/dL [facility] Remisol Consent for Anesthesiaon Consent for Anesthesia [id number]#[id number]:127 Normal [facility] Creatinineon 04-07-2023 Creatinine [Mass/Vol] 0.9 mg/dL Normal 0.5-1.3 [facility] Comment on above: Performed By: #### 2 402217, 9777200, 5859875, 0346133, 12771965, 1710455 ####[facility] [address] [place] [address] Discharge Instructionson Discharge Instructions [id number]#[id number]:127 Normal [facility] Discharge Note-Nursingon Discharge Note-Nursing ZAIDIRADHA :1960 Visit Date:04/06/2023 Inpatient Discharge Instructions Your [...] Pending Diagnostic Test Results None Pharmacy Information [facility] New Follow Up Appointments after Discharge Follow Up with Jordan Yuan When: Where: [address] [place] [address]- Business (1) Follow Up with JOHN ASHBY When: In 0 days Where: [address] [place] [address]- Business (1) Medications What How Much When Instructions Next Dose Changed acetaminophen-oxycodone (Percocet 5 mg-325 mg oral tablet) See instructions 1-2 tab(s) Oral q4hr [facility] Next dose due after 10am Unchanged buPROPion (Wellbutrin XL 300 mg/ 24 hours Tab-ER) 1 Tablets By Mouth 2 times a day 04/07/23 @ 9pm Unchanged celecoxib (CeleBREX 100 mg Cap) 1 Capsules By Mouth 2 times a day as needed for for pain Pickup at [facility] 04/07/23 @ 9pm Unchanged cephalexin (Keflex 500 mg Cap) 1 Capsules By Mouth Every 8 hours Duration: 7 Days [facility] 04/07/23 @ 2pm and bedtime Unchanged docusate (Colace 100 mg Cap) 1 Capsules By Mouth 2 times a day as needed for for constipation [facility] 04/07/23 @ 9pm Unchanged leflunomide (Arava [...] Every day 04/08/23 @ 9am Pharmacy Information [facility] #6177: [address], [place] [id number] [phone] Test Results CBC BMP WBC: 9.6 E9/L [...] Lateralized/ 24, Shoulder Implant 04/06/2023 [employer] [place] humeral Stem Size 9, Shoulder Implant 04/06/2023 [employer] SutureCap, 36 neutral, shoulder Implant 04/06/2023 [employer] Humeral Insert, small, 36, +6, Shoulder (more content not included)... Normal [facility] HEMATOLOGYOrdered By: SYSTEM SYSTEM on 04-07-2023 Basophils/100 [...] Inpatient Clinical Summaryon 04-07-2023 Inpatient Clinical Summary [place] [address] Clinical Summary Person Information: Name: RADHA ZAIDI Age: 62 Years : 1960 Sex: Female PCP: JOHN ASHBY DO Marital Status: Phone: [phone] Race: White Ethnicity: Non- or Language: Urdu MRN: [id number] Visit Id: Visit Reason: OA RIGHT SHOULDER Speciality: Acuity: Enc Type: Observation Med Service: Medical Arrival: 04/06/2023 06:09:55 Discharge: Dispo Type: Address: [address] [place] [address] [address] [place] [id number] Provider Notes: Patient: RADHA ZIADI Age: 62 years Sex: Female : 1960 [...] Follow up: With: Address: When: Jordan Yuan [address] [place], [place] [id number] Business (1) 04/19/2023 2:15 PM With: Address: When: JOHN ASHBY [address] [place] [address] Business (1) Patient Education Information: Iris Yuan - Shoulder Replacement (Custom) [facility] Inpatient Patient Summaryon 04-07-2023 Inpatient Patient Summary [address] [address] Patient Discharge Instructions PERSON INFORMATION [...] Follow up: With: Address: When: Jordan Yuan [address] [place] [address] Business (1) 04/19/2023 2:15 PM With: Address: When: JOHN ASHBY [address] [facility] [place] [id number] Business (1) In the event that this [...] That Have Changed [facility], [address], [place] [id number], [phone] START: acetaminophen-oxycodone (Percocet 5 mg-325 mg oral tablet) 1-2 tab(s) Oral q4hr. Refills: 0. Last Dose: Ne xt Dose: STOP: acetaminophen-oxycodone (Percocet 5 mg-325 mg oral tablet) 1 Tablets By Mouth 3 times a day. Medications to Continue with No Changes [facility] #6[facility], [address], [place] [id number], [phone] celecoxib (CeleBREX 100 mg Cap) 1 Capsules [...] Tablets By Mouth every day. Pharmacy Information: [facility] (419) (more content not included)... Normal [facility] IntraOperative Documentson 0 04-07-2023 IntraOperative Documents [id number]#[id number]:127 Normal [facility] IntraOperative Documents [id number]#[id number]:127 Normal [facility] Lyteson 04-07-2023 Anion gap [Moles/Vol] 6 mmol/L Normal 6-16 [facility] Comment on above: Performed By: #### 2 498346, 1503790, 9277665, 9013591, 64860708, 2538577 ####[place] [address] [place] [address] Chloride [Moles/Vol] 118 mmol/L High 101-111 [facility] Comment on above: Performed By: #### 2 401875, 6467224, 9573006, 5332410, 73045848, 2025725 ####[facility] [address] [facility] [address] CO2 [Moles/Vol] 23 mmol/L Normal 21-31 [facility] Comment on above: Performed By: #### 2 279530, 0219834, 7442747, 5616674, 89252646, 4530762 ####[facility] [address] [address] [facility] [address] Potassium [Moles/Vol] 4.0 mmol/L Normal 3.5-5.3 [facility] Comment on above: Performed By: #### 2 997868, 2465108, 6726005, 5218933, 90098106, 5271812 ####[facility] [address] [facility] [place] [address] Sodium [Moles/Vol] 143 mmol/L Normal 135-145 [facility] Comment on above: Performed By: #### 2 396257, 4432758, 6656618, 8766012, 42065458, 5764427 ####[facility] [address] [facility] [place] [address] Main OR Intraoperative Recor don 04-07-2023 Main OR Intraoperative Record IntraOp Document Type FT Summary Primary Physician: Jordan Yuan DO Finalized Date/Time: 04/07/23 14:30:58 Pt. Name: RADHA ZAIDI/Sex: 1960 Female Med Rec #: [id number] Physician: Jordan Yuan DO Financial #: [id number] Pt. Type: A Room/Bed: N305/01 Admit/Disch: 04/06/23 06:09:55 - 04/07/23 09:30:00 Institution: [...] Patient transported via cart back to [facility] and placed on SP02 monitor by Leisa, ESTRELLITA. -ESTRELLITA Tomlin 04/07/23 Chart opened to review and send charges [facility]oth CSFA Case Attendance FT Entry 1 Entry 2 Entry 3 Case Attendee Idris RADIO ASSEMBLER, Adiel Yuan DO, Jordan Goldman RN, Dennis Curry Role Performed RADIO ASSEMBLER Surgeon - Primary Automotive Window Tinter - Primary Time In 04/06/23 09:32:00 04/06/23 10:05:00 04/06/23 09:32:00 Time Out 04/06/23 11:36:00 04/06/23 11:16:00 04/06/23 11:36:00 Procedure SHOULDER TOTAL SHOULDER TOTAL SHOULDER TOTAL ARTHROPLASTY(Right) ARTHROPLASTY(Right) ARTHROPLASTY(Right) Comments , anesthesia loss prevention supervisor Last Modified By: Wanda ACCESS SPEC, Sharmaine Goldman RN, Dennis Downs RN 04/07/23 14:28:51 04/06/23 11:35:47 04/06/23 11:35:47 Entry 4 Entry 5 Entry 6 Case Attendee Valerie MARI, Jena Taylor CST, Benjamin Role Performed Scrub - Primary Scrub - Primary ACCESS SPEC/SA Time In 04/06/23 09:32:00 04/06/23 09:32:00 04/06/23 [...] Yuan DO, Krupp RN, Dennis Curry, Valerie ACCESS SPEC, Johnathan Hernandez Sydney A, Wilhelm ACCESS SPEC, Alfredo Lopez Jessica D, Francis, Jennifer E [...] traffic control (more content not included)... Normal [facility] Main OR PACU I Recordon 03-12 Main OR PACU I Record PACU Phase I Document Type FT Summary Primary Physician: Jordan Yuan DO Finalized Date/Time: 04/07/23 08:05:19 Pt. Name: ZAIDIRADHA./Sex: 1960 Female Med Rec #: [id number] Physician: Jordan Yuan DO Financial #: [id number] Pt. Type: O Room/Bed: [place] [address] Admit/Disch: 04/06/23 06:09:55 - Institution: Case Times [...] 08:04 Cate Gonsales RN 04/07/23 08:05 Normal [facility] Patient Education - Texton 0 04-07-2023 Patient Education - Text [place], [place] [facility] DISCHARGE INSTRUCTIONS: SHOULDER REPLACEMENT [...] persistent vomiting. Jordan Yuan DO [facility] [address] [place] [address] Reviewed: [facility] Preoperative Documentson Preoperative Documents [id number]#[id number]:127 [facility] Progress Note-Physicianon Progress Note-Physician Patient: RADHA ZAIDI [...] Pressure 63 mmHg SpO2 94 % Normal [facility] Comment on above: Result Comment: Elec tronically Signed By: Jordan Yuan DO\Date and Time Signed: 04/07/23 07:40 EDT eGFRon 04-07-2023 GFR/1.73 sq M.predicted among non-blacks MDRD (S/P/Bld) [Vol rate/Area] 72 mL/min/1.73 m2 Normal >=59 [facility] Comment on above: Order Comment: Order added by Discern Expert. Result Comment: Air Gun Operator dina kidney disease could be indicated at eGFR's of less than 60 mL/min/1.73m2. Kidney failure is indicated at less than 15 mL/min/1.73m2. Performed By: #### 2 816535, 5503378, 3491702, 5960558, 64914292, 8152919 ####[facility] [address] [place] [address] ABO/Rhon 04-06-2023 ABO/Rh Positive Invalid Interpretation Code [facility] Comment on above: Performed By: #### 1 1702901, 45599504, 11839552, 1332287 ####[facility] [address] [place] [address] ABO/Rh History Checkon 04-06 ABO/Rh History Check Verified Hx Blood Type Normal [facility] Comment on above: Performed By: #### 1 8936669, 45868702, 78907644, 0741108 ####[facility] [address] [place] [address] ABSCon 04-06-2023 ABSC Gel Interp Negative Normal [facility] Comment on above: Performed By: #### 1 3686372, 92398394, 23140063, 6342301 ####[facility] [address] [place] [address] BLOOD BANKOrdered By: Andra Nunez on 04-06-2023 ABO/Rh Interp Positive Invalid Interpretation Code [place] BB Subsection ABSC Gel Interp Negative (04/06/23 7:23 AM) Normal [place] BB Subsection Blood Bank ID#on 04-06-2023 BBID# [id number] Invalid Interpretation Code [facility] Comment on above: Performed By: #### 1 4959338, 15816205, 76818340, 7645399 ####[facility] [address] [place] [address] Consent for Treatmenton 03-12 Consent for Treatment [id number]#1.00CD:127 Normal [facility] H&P Updateon 04-06-2023 H&P Update [id number]#1.00CD:127 Normal [facility] Insurance Correspondence Off iceon 04-06-2023 Insurance Correspondence Office [id number]#[id number]:127 Normal [facility] Main OR Preoperative Recordo n 04-06-2023 Main OR Preoperative Record PreOp Document Type FT Summary Primary Physician: Jordan Yuan DO Finalized Date/Time: 04/06/23 09:32:24 Pt. Name: DYANRADHA D.O.B./Sex: 1960 Female Med Rec #: [id number] Physician: Jordan Yuan DO Financial #: [id number] Pt. Type: A Room/Bed: [facility] Admit/Disch: 04/06/23 06:09:55 - Institution: Case [...] By: Dennis Goldman RN 04/06/23 09:32 Normal [facility] Monitor Recordon 04-06-2023 Monitor Record [id number]#[id number]:127 Normal [facility] Monitor Record [id number]#[id number]:127 Normal [facility] Monitor Record [id number]#[id number]:127 Normal [facility] Operative Reporton Operative Report Patient: ELIZABET ZAIDI Age: 62 years Sex: Female : 1960 Associated Diagnoses: None Author: Jordan Yuan DO DATE OF SURGERY: 04/06/2023 SURGEON: Jordan Yuan D.O. [employer] PROCESSOR: Anival Flores CFA PREOPERATIVE DIAGNOSIS: Massive rotator [...] 3. size +6 humeral insert 4. Revers [place] size 9 stem with 36 (neutral) Suturecup OPERATIVE INDICATIONS: Radha is a 62-year-old avtpw-vrge-vmgrfmle female who has had persistent right shoulder [...] The depth-stop (more content not included)... Normal [facility] Comment on above: Result Comment: Elec [...] Using maximal sterile barrier technique per current [facility] guidelines including hand hygeine, Guidance (Ultrasound used [...] as expected. [facility] Comment on above: Result Comment: Elec tronically Signed By: Yanick Rai DO\.br\Date and Time Signed: 04/06/23 08:44 EDT Progress Note-Physicianon Progress Note-Physician Patient: RADHA ZAIDI Age: 62 years Sex: Female : 1960 Associated Diagnoses: None Author: Yanick Rai DO Postoperative Information Postoperative disposition: Postoperative disposition: To PACU. Optimetrix number: Optimetrix number [id number]. Anesthetic utilized: General. Regional: Interscalene Block. Health [...] pain, # 60 cap(s), Refills(s) 0, Pharmacy: [facility]/pharmacy #[id number], 160, cm, 03/25/23 6:16:00 EDT, Height/Length Dos (more content not included)... 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 Family History: Primary malignant neoplasm of prostate Father Acute myocardial infarction Mother Procedure history: Cervical laminectomy (7322632892). Amputation of finger (785731222). Removal of lung, Partial (38636). Open reduction and internal fixation of fracture Leg (480079905). Foot surgery (1133290653). Lumbar discectomy (071184802). Social History Social & Psychosocial Habits Alcohol [...] to auscultation. (more content not included)... Normal [facility] Comment on above: Result Comment: Elec tronically [...] in mGy = na DAP = na [facility] Consent for Procedure/Surger yon 04-05-2023 Consent for Procedure/Surgery [id number]#1.00CD:[address] [facility] [address] Upper Extremity w/o Contr ast Righton [...] Suazo DO Transcribed by: DANISHA Technologist: CONSTANTINO [facility] ABO/Rh Retypeon 03-24-2023 ABO/Rh Retype Interp Positive Invalid Interpretation Code [facility] Comment on above: Performed By: #### 1 [id number] ####[facility] [address] [place] [address] BLOOD BANKOrdered By: Andra Longoria on 03-24-2023 ABO/Rh Retype Interp Positive Invalid Interpretation Code [place] BB Subsection BUNon 03-24-2023 Urea nitrogen [Mass/Vol] 28 mg/dL High 5-21 [facility] Comment on above: Performed By: #### 1 4817570, 8548900, 1086388, 1125157, 3516612, 2076420 ####[facility] [address] [place] [address] CBC w/Indiceson 03-24-2023 Erythrocyte distribution width (RBC) [Ratio] 14.5 % High 10.9-14.2 [facility] Comment on above: Performed By: #### 1 8899379, 6673098, 4906935, 6810553, 1164847, 3808822 ####[facility] [address] [place] [address] Hematocrit (Bld) [Volume fraction] 35.9 % Normal 34.0-46.0 [facility] Comment on above: Performed By: #### 1 4768389, 8584848, 8932509, 5552170, 1700639, 6342499 ####[address] [address] [place] [address] Hemoglobin (Bld) [Mass/Vol] 11.9 g/dL Low 12.0-16.0 [facility] Comment on above: Performed By: #### 1 6290769, 9500248, 0746098, 6760255, 4994778, 0097140 ####[facility] [address] [place] [address] MCH (RBC) [Entitic mass] 32.3 pg Normal 27.0-34.0 [facility] Comment on above: Performed By: #### 1 5489638, 5728301, 4891019, 2906544, 5099712, 3339065 ####[facility] [address] [place] [address] MCHC (RBC) [Mass/Vol] 33.1 g/dL Normal 31.4-36.0 [facility] Comment on above: Performed By: #### 1 9474736, 5621630, 1130899, 3719711, 1343090, 1625960 ####[address] [place] [address] MCV (RBC) [Entitic vol] 97.4 fL Normal 80.0-100.0 [facility] Comment on above: Performed By: #### 1 4325846, 6570420, 2385817, 9827581, 0967242, 8326992 ####[place] [address] Platelet mean volume (Bld) [Entitic vol] 7.4 fL Normal 6.4-10.8 [facility] Comment on above: Performed By: #### 1 0205073, 3043369, 5596782, 7854096, 1074488, 0230945 ####[place] [address] Platelets (Bld) [#/Vol] 207.0 E9/L Normal 150.0-500.0 [facility] Comment on above: Performed By: #### 1 7794310, 6425824, 4063757, 8829617, 1591781, 7903204 ####[place] [address] RBC (Bld) [#/Vol] 3.7 E12/L Low 4.3-5.9 [facility] Comment on above: Performed By: #### 1 3960234, 1526598, 6916978, 0292583, 2101566, 5302769 ####[address] [address] WBC corrected for nucl RBC Auto (Bld) [#/Vol] 3.5 E9/L Low 4.0-11.0 [facility] Comment on above: Performed By: #### 1 2511697, 5388972, 2304824, 2302950, 1325376, 4697077 ####[facility] [address] [place] [address] CHEMISTRYOrdered By: SYSTEM SYSTEM on 03-24-2023 Anion gap [Moles/Vol] 12 mmol/L Normal 6 - 16 mEq/L FT Remisol Chloride [Moles/Vol] 111 mmol/L Normal 101 - 111 mmol/L [place] Remisol CO2 [Moles/Vol] 20 mmol/L Low 21 - 31 mmol/L [place] Remisol Creatinine [Mass/Vol] 1.2 mg/dL Normal 0.5 - 1.3 mg/dL [place] Remisol GFR/1.73 sq M.predicted among non-blacks MDRD (S/P/Bld) [Vol rate/Area] 51 mL/min/1.73 m2 Low >=59mL/min/ 1.73 m2 [place] Chem S Glucose [Mass/Vol] 84 mg/dL Normal 55 - 199 mg/dL [place] Remisol Potassium [Moles/Vol] 4.2 mmol/L Normal 3.5 - 5.3 mmol/L [place] Remisol Sodium [Moles/Vol] 139 mmol/L Normal 135 - 145 mmol/L [place] Remisol Urea nitrogen [Mass/Vol] 28 mg/dL High 5 - 21 mg/dL [place] Remisol Consent for Treatmenton 03-11 Consent for Treatment [id number]#[id number]:127 Normal [facility] Creatinineon 03-24-2023 Creatinine [Mass/Vol] 1.2 mg/dL Normal 0.5-1.3 [facility] Comment on above: Performed By: #### 1 2722689, 0869921, 6911579, 1301109, 9796300, 9366718 ####[facility] [address] [place] [address] Glucoseon 03-24-2023 Glucose [Mass/Vol] 84 mg/dL Normal 55-199 [facility] Comment on above: Performed By: #### 1 5715536, 5287248, 6585524, 8998176, 4134416, 8517160 ####[facility] [address] [place] [address] HEMATOLOGYOrdered By: Andra Longoria on 03-24-2023 Erythrocyte [...] Anion gap [Moles/Vol] 12 mmol/L Normal 6-16 [facility] Comment on above: Performed By: #### 1 9238899, 8399207, 5774473, 0898973, 3328278, 8771284 ####[facility] [address] [place] [address] Chloride [Moles/Vol] 111 mmol/L Normal 101-111 [facility] Comment on above: Performed By: #### 1 0234496, 2440798, 0616577, 3091023, 5505755, 4760173 ####[facility] [address] [place] [address] CO2 [Moles/Vol] 20 mmol/L Low 21-31 [facility] Comment on above: Performed By: #### 1 3941081, 3536368, 5173617, 7981787, 7960501, 0372389 ####[facility] [address] [place] [address] Potassium [Moles/Vol] 4.2 mmol/L Normal 3.5-5.3 [facility] Comment on above: Performed By: #### 1 7818749, 7369246, 9089393, 0241383, 2262998, 7066446 ####[facility] [address] [place] [address] Sodium [Moles/Vol] 139 mmol/L Normal 135-145 [facility] Comment on above: Performed By: #### 1 5170113, 4611128, 4329411, 1724841, 5064831, 3395237 ####[facility] [address] [place] [address] UA With Cult Reflexon 2022 Bilirubin Ql (U) Negative Normal Negative [facility] Comment on above: Performed By: #### 1 8687870 #### [facility] [address] [place] [address] Clarity (U) CLEAR Normal Clear [facility] Comment on above: Performed By: #### 1 7946838 #### [facility] [address] [place] [address] Color (U) YELLOW Normal Yellow [facility] Comment on above: Performed By: #### 1 4825340 #### [facility] [address] [place] [address] Epithelial cells.squamous LM.HPF (Urine sed) [#/Area] 0-2 Normal 0-2 [facility] Comment on above: Performed By: #### 1 3349077 #### [facility] [address] [place] [address] Fine Granular Casts LM Ql (Urine sed) 0-3 Normal [facility] Comment on above: Performed By: #### 1 3968502 #### [facility] [address] [place] [address] Glucose Test strip (U) [Mass/Vol] Negative Normal Negative [facility] Comment on above: Performed By: #### 1 9671996 #### [facility] [address] [place] [address] Hemoglobin Ql (U) Negative Normal Negative [facility] Comment on above: Performed By: #### 1 3313033 #### [facility] [address] [place] [address] Ketones (U) [Mass/Vol] Negative Normal Negative [facility] Comment on above: Performed By: #### 1 9144157 #### [facility] [address] [place] [address] [place].plasma/Lith ium.RBC (Bld) [Mass ratio] 0-3 Normal 0-3 [facility] Comment on above: Performed By: #### 1 3868908 #### [facility] [address] [place] [address] Mucus Ql (Urine sed) TRACE Normal [facility] Comment on above: Performed By: #### 1 1863304 #### [facility] [address] [place] [address] Nitrite Ql (U) Negative Normal Negative [facility] Comment on above: Performed By: #### 1 7723980 #### [facility] [address] [place] [address] pH (U) 6.0 [pH] Invalid Interpretation Code 5.0-9.0 [facility] Comment on above: Performed By: #### 1 1735704 #### [facility] [address] [place] [address] Protein (U) [Mass/Vol] Negative Normal Negative [facility] Comment on above: Performed By: #### 1 3327097 #### [facility] [address] [place] [address] Specific gravity (U) [Rel density] >=1.030 Invalid Interpretation Code 1.005-1.030 [facility] Comment on above: Performed By: #### 1 0297688 #### [facility] [address] [place] [address] Type of Urine collection method Clean Catch Normal [facility] Comment on above: Performed By: #### 1 0908802 #### [facility] [address] [place] [address] Urobilinogen Qn (U) 0.2 {Rajwinder'U}/dL Normal 0.0-1.0 [facility] Comment on above: Performed By: #### 1 2072596 #### [facility] [address] [place] [address] WBC Auto Ql (U) Negative Normal Negative [facility] Comment on above: Performed By: #### 1 0148029 #### [facility] [address] [place] [address] WBC LM.HPF (Urine sed) [#/Area] 0-5 Normal 0-5 [facility] Comment on above: Performed By: #### 1 6207407 #### [facility] [address] [place] [address] URINALYSISOrdered By: Indira calix on 03-24-2023 Bilirubin [...] PM) Normal Negative [facility] UA Auto SS [place].plasma/Lith ium.RBC (Bld) [Mass ratio] 0-3 /HPF Normal [...] PM) Invalid Interpretation Code 1.005 - 1.030 [facility] UA Auto SS UA Spec Desc Clean Catch (03/24/23 3:05 PM) Normal [facility] UA Auto SS Urobilinogen Qn (U) 0.1891843 {Rajwinder'U}/dL Normal 0.0 - 1.0 EU/dL [facility] [...] suggesting chronic rotator cuff tears. Ordering Provider: Ghafoori,, Ahmad FINAL REPORT Dictated: 03/24/2023 3:30 pm Jayson Kemp M.D. Signed (Electronic Signature): 03/24/2023 3:30 pm Signed by: Jayson Kemp M.D. Transcribed by: DANISHA Technologist: CONSTANTINO Technical Comments Radiation Dose: Ka,r in mGy = na DAP = na Normal [facility] eGFRon 03-24-2023 GFR/1.73 sq M.predicted among non-blacks MDRD (S/P/Bld) [Vol rate/Area] 51 mL/min/1.73 m2 Low >=59 [facility] Comment on above: Order Comment: Order added by Discern Expert. Result Comment: Air Gun Operator dina kidney disease could be indicated at eGFR's of less than 60 mL/min/1.73m2. Kidney failure is indicated at less than 15 mL/min/1.73m2. Performed By: #### 1 8006103, 4350549, 1578006, 1097301, 4766427, 7949503 ####[facility] [address] [place] [address] Physician Orderon 03-23-2023 Physician Order [id number]#1.00CD:127 Normal [facility] XR SHOULDER RT 2V or >on XR [...] VANDANA YUAN Date: 2022-10-07 22:[address] [facility] CBC AUTO DIFFon 09-16-2022 BASO # 0.0 103/ul Normal 0.0-0.1 [facility] [place] Comment on above: Performed By: #### C BC ####[facility] [address] [place] [address]Dr. Andrade Alvarado Basophils/100 WBC (Bld) 0.5 % Normal 0.2-2.[address] [facility] Comment on above: Performed By: #### C BC ####[facility] [address] [place], [place] [address]Dr. Andrade Alvarado EO # 0.1 103/ul Normal 0.0-0.[address] [facility] Comment on above: Performed By: #### C BC ####[facility] [address] [place], [place] [address]Dr. Andrade Alvarado Eosinophils/100 WBC (Bld) 2.3 % Normal 0.9-7.[address] [facility] Comment on above: Performed By: #### C BC ####[facility] [address] [place], [place] [address]Dr. Andrade Alvarado Erythrocyte distribution width (RBC) [Ratio] 13.7 % Normal 11.0-15.0 [facility] [place] Comment on above: Performed By: #### C BC ####[facility] [address] [place], [place] [address]Dr. Andrade Alvarado Hematocrit (Bld) [Volume fraction] 32.8 % Critically low 36.0-48.0 [facility] [place] Comment on above: Performed By: #### C BC ####[facility] [address] [place], [place] [address]Dr. Andrade Alvarado Hemoglobin (Bld) [Mass/Vol] 10.9 g/dL Critically low 12.0-16.[address] [facility] Comment on above: Performed By: #### C BC ####[facility] [address] [place], [place] [address]Dr. Andrade Alvarado IG # 0.02 10e3/ul Normal 0.00-0.[address] [facility] Comment on above: Performed By: #### C BC ####[facility] [address] [place], [place] [address]Dr. Kellengregory Alvarado IG % 0.5 % Normal 0.0-0.5 [facility] [place] Comment on above: Performed By: #### C BC ####[facility] [address] [place] [address]Dr. Andrade Christiano LYMPH # 1.6 103/ul Normal 1.2-3.8 [facility] [place] Comment on above: Performed By: #### C BC ####[facility] [address] [place] [address]Dr. Andrade Alvarado Lymphocytes/100 WBC (Bld) 41.8 % Normal 20.5-60.0 [facility] [place] Comment on above: Performed By: #### C BC ####[facility] [address] [place] [address]Dr. Andrade Alvarado MANUAL DIFF REQ NO Normal [facility] Comment on above: Performed By: #### C BC ####[facility] [address] [place] [address]Dr. Andrade Alvarado MCH (RBC) [Entitic mass] 31.9 pg Normal 26.7-34.0 [facility] [place] Comment on above: Performed By: #### C BC ####[facility] [address] [place] [address]Dr. Kellengregory Alvarado MCHC (RBC) [Mass/Vol] 33.2 g/dL Normal 29.9-35.2 [facility] [place] Comment on above: Performed By: #### C BC ####[facility] [address] [place] [address]Dr. Andrade Alvarado MCV (RBC) [Entitic vol] 95.9 fL Normal 81.0-99.0 [facility] [place] Comment on above: Performed By: #### C BC ####[facility] [address] [place] [address]DrMehreen Alvarado MONO # 0.5 103/ul Normal 0.3-0.8 [facility] [place] Comment on above: Performed By: #### C BC ####[facility] [address] [place] [address]Dr. Andrade Alvarado Monocytes/100 WBC (Bld) 13.1 % Critically high 1.7-12.0 [facility] [place] Comment on above: Performed By: #### C BC ####[facility] [address] [place] [address]DrMehreen Foremangregory Alvarado NEUT # 1.6 103/ul Normal 1.4-6.5 [facility] [place] Comment on above: Performed By: #### C BC ####[facility] [address] [place] [address]DrMehreen Alvarado Neutrophils/100 WBC (Bld) 41.8 % Critically low 43.0-75.0 [facility] [place] Comment on above: Performed By: #### C BC ####[facility] [address] [place] [address]Dr. Andrade Alvarado Platelet mean volume (Bld) [Entitic vol] 8.8 fL Critically low 9.5-13.5 [facility] [place] Comment on above: Performed By: #### C BC ####[facility] [address] [place] [address]DrMehreen Alvarado PLT 219 103/ul Normal 150-[address] [facility] Comment on above: Performed By: #### C BC ####[facility] [address] [place] [address]Dr. Andrade Alvarado RBC 3.42 106/ul Critically low 4.20-5.40 [facility] Comment on above: Performed By: #### C BC ####[facility] [address] [place] [address]DrMehreen Alvarado WBC 3.9 103/ul Critically low 4.0-11.0 [facility] Comment on above: Performed By: #### C BC ####[facility] [address] [place] [address]Dr. Andrade Alvarado FERRITINon 09-16-2022 Ferritin [Mass/Vol] 292.0 ng/mL Critically high 8.0-252.0 [facility] [place] Comment on above: Performed By: #### F ERR, B12FOL, FETIBC #### [facility] [address] [place], [place] [address] Dr. Andrade Alvarado IRON AND TIBCon 09-16-2022 % SATURATION 76.2 % Normal [facility] [place] Comment on above: Performed By: #### F ERR, B12FOL, FETIBC #### [facility] [address] [place] [address] [address] Andrade Alvarado Iron [Mass/Vol] 259.0 ug/dL Critically high 50.0-170.0 [facility] [place] Comment on above: Performed By: #### F ERR, B12FOL, FETIBC #### [facility] [address] [place] [address] [address] Andrade Alvarado TIBC DIRECT 340.0 ug/dL Normal 250.0-450.0 [facility] Comment on above: Performed By: #### F ERR, B12FOL, FETIBC #### [facility] [address] [place] [address] [address] Andrade Alvarado PROF 14(COMP METB)on 023 Albumin [Mass/Vol] 4.0 g/dL Normal 3.4-5.0 [facility] Comment on above: Performed By: #### C MP ####[facility] [address] [place] [address]Dr. Andrade Alvarado Albumin/Globulin [Mass ratio] 1.3 {ratio} Normal [facility] [place] Comment on above: Performed By: #### C MP ####[facility] [address] [place] [address]Dr. Andrade Alvarado ALP [Catalytic activity/Vol] 47 U/L Normal 46-[address] [facility] Comment on above: Performed By: #### C MP ####[facility] [address] [place] [address]Dr. Andrade Alvarado ALT [Catalytic activity/Vol] 23 U/L Normal 14-[address] [facility] Comment on above: Performed By: #### C MP ####[facility] [address] [place] [address]DrMehreen Alvarado Anion gap [Moles/Vol] 12.1 mmol/L Normal [facility] [place] Comment on above: Performed By: #### C MP ####[facility] [address] [place] [id number]. Andrade Alvarado AST [Catalytic activity/Vol] 23 U/L Normal 15-[address] [facility] Comment on above: Performed By: #### C MP ####[facility] [address] [place] [address]Dr. Andrade Alvarado Bilirubin [Mass/Vol] 0.4 mg/dL Normal 0.2-1.[address] [facility] Comment on above: Performed By: #### C MP ####[facility] [address] [place] [address]Dr. Andrade Alvarado Calcium [Mass/Vol] 9.3 mg/dL Normal 8.5-10.1 [facility] Comment on above: Performed By: #### C MP ####[facility] [address] [place] [id number]. Andrade Alvarado Chloride [Moles/Vol] 108 mmol/L Critically high 98-[address] [facility] Comment on above: Performed By: #### C MP ####[facility] [address] [place] [address]Dr. Andrade Alvarado CO2 [Moles/Vol] 26.9 mmol/L Normal 21.0-32.0 [facility] Comment on above: Performed By: #### C MP ####[facility] [address] [place] [id number]. Andrade Alvarado Creatinine [Mass/Vol] 0.87 mg/dL Normal 0.55-1.[address] [facility] Comment on above: Performed By: #### C MP ####[facility] [address] [place] [id number]. Andrade Alvarado EGFR-AF DANISH >60 Normal >=60 [facility] Comment on above: Performed By: #### C MP ####[facility] [address] [place] [phone]. Andrade Alvarado EGFR-NON AF DANISH >60 Normal >=[address] [facility] Comment on above: Performed By: #### C MP ####[facility] [address] [place], [place] [address]Dr. Andrade Christiano Globulin (S) [Mass/Vol] 3.0 g/dL Normal [facility] [place] Comment on above: Performed By: #### C MP ####[facility] [address] [place], [place] [address]Dr. Andrade Alvarado Glucose [Mass/Vol] 102 mg/dL Normal 74-106 [facility] Comment on above: Performed By: #### C MP ####[facility] [address] [place], [place] [address]Dr. Andrade Christiano Potassium [Moles/Vol] 4.0 mmol/L Normal 3.5-5.[address] [facility] Comment on above: Performed By: #### C MP ####[facility] [address] [place], [place] [address]Dr. Andrade Alvarado Protein [Mass/Vol] 7.0 g/dL Normal 6.4-8.2 [facility] [place] [facility] Comment on above: Performed By: #### C MP ####[facility] [address]ir[address] [place], [place] [address]Dr. Andrade Christiano Sodium [Moles/Vol] 143 mmol/L Normal 136-145 [facility] [place] [facility] Comment on above: Performed By: #### C MP ####[facility] Zdmhwglxfr[address] [place], [place] [address]Dr. Kellnegregory Alvarado Urea nitrogen [Mass/Vol] 25.0 mg/dL Critically high 7.0-18.0 [facility] [place] Comment on above: Performed By: #### C MP ####[facility] [address] [place], [place] [address]Dr. Andrade Alvarado Urea nitrogen/Creatinine [Mass ratio] 28.7 mg/mg Normal [facility] [place] Comment on above: Performed By: #### C MP ####[facility] Nonzyecpeg[address] [place], [place] [address]Dr. Andrade Alvarado SED RATE [facility] 2022 SED RATE 11 mm/hr Normal <=[address] [facility] Comment on above: Performed By: #### S EDR ####[facility] Njianucnjw[address] [place], [place] [address]Dr. Andrade Alvarado VIT B12 AND FOLATEon 023 Cobalamin (Vitamin B12) [Mass/Vol] 249.0 pg/mL Normal 193.0-986.0 [facility] [place] Comment on above: Performed By: #### F ERR, B12FOL, FETIBC #### [facility] [address] [place], [place] [address] Dr. Andrade Alvarado FOLATE 14.00 ng/mL Normal 8.60-58.90 [facility] [place] Comment on above: Performed By: #### F ERR, B12FOL, FETIBC #### [facility] [address] [place] [address] [address] Andrade Alvarado MG MAMM SCREEN 3D BRENNA CADon 2022 MG MAMM SCREEN 3D BRENNA CAD Patient: RADHA ZAIDI Exam Date: 2022 : 1960 Gender:F Ordering : DR JOHN ASHBY D.O. Admission #: [id number] Family : Order #: [id number] CLICK HERE TO VIEW EXAM RADIOLOGY REPORT [...] prostate cancer at age 72. LOCATION: [facility] BREAST COMPOSITION: Scattered areas fibroglandular density. [...] M.D. on 06/09/2022 at 15:[address] [facility] CBC AUTO DIFFon 05-20-2022 BASO # 0.0 103/ul Normal 0.0-0.[address] [facility] Comment on above: Performed By: #### C BC ####[facility] [address] [place] [address]Dr. Andrade Alvarado Basophils/100 WBC (Bld) 1.0 % Normal 0.2-2.[address] [facility] Comment on above: Performed By: #### C BC ####[facility] [address]vddjkczsi[address] [place], [place] [address]Dr. Andrade Alvarado EO # 0.1 103/ul Normal 0.0-0.[address] [facility] Comment on above: Performed By: #### C BC ####[facility] Xilaerkchv[address] [place], [place] [address]Dr. Andrade Alvarado Eosinophils/100 WBC (Bld) 2.5 % Normal 0.9-7.[address] [facility] Comment on above: Performed By: #### C BC ####[facility] Bllmitudgj[address] [place], [place] [address]Dr. Andrade Alvarado Erythrocyte distribution width (RBC) [Ratio] 13.0 % Normal 11.0-15.[address] [facility] Comment on above: Performed By: #### C BC ####[facility] Cznojiprvc[address] [place], [place] [address]Dr. Andrade Alvarado Hematocrit (Bld) [Volume fraction] 34.9 % Critically low 36.0-48.[address] [facility] Comment on above: Performed By: #### C BC ####[facility] Mbqwxtmmju653[address] [place], [place] [address]Dr. Andrade Alvarado Hemoglobin (Bld) [Mass/Vol] 11.6 g/dL Critically low 12.0-16.[address] [facility] Comment on above: Performed By: #### C BC ####[facility] Aqqyrwcmjm[address] [place], [place] [address]Dr. Andrade Alvarado IG # 0.02 10e3/ul Normal 0.00-0.[address] [facility] Comment on above: Performed By: #### C BC ####[facility] Pcnjzdyolo[address] [place], [place] [address]Dr. Kellengregory Alvarado IG % 0.5 % Normal 0.0-0.5 [facility] [place] Comment on above: Performed By: #### C BC ####[facility] [address] [place] [address]Dr. Andrade Christiano LYMPH # 1.9 103/ul Normal 1.2-3.[address] [facility] Comment on above: Performed By: #### C BC ####[facility] [address]pl[address] [place] [address]Dr. Kellengregory Alvarado Lymphocytes/100 WBC (Bld) 46.1 % Normal 20.5-60.[address] [facility] Comment on above: Performed By: #### C BC ####[facility] [address] [place] [address]Dr. Kellengregory Alvarado MANUAL DIFF REQ NO Normal [facility] Comment on above: Performed By: #### C BC ####[facility] [address]cl[address] [place] [address]Dr. Andrade Christiano MCH (RBC) [Entitic mass] 32.3 pg Normal 26.7-34.[address] [facility] Comment on above: Performed By: #### C BC ####[facility] [address] [place] [address]Dr. Andrade Christiano MCHC (RBC) [Mass/Vol] 33.2 g/dL Normal 29.9-35.[address] [facility] Comment on above: Performed By: #### C BC ####[facility] [address] [place] [address]Dr. Andrade Christiano MCV (RBC) [Entitic vol] 97.2 fL Normal 81.0-99.[address] [facility] Comment on above: Performed By: #### C BC ####[facility] [address]xdn[address] [place] [address]DrMehreen Alvarado MONO # 0.5 103/ul Normal 0.3-0.[address] [facility] Comment on above: Performed By: #### C BC ####[facility] [address]latpm[address] [place] [address]DrMehreen Alvarado Monocytes/100 WBC (Bld) 13.5 % Critically high 1.7-12.[address] [facility] Comment on above: Performed By: #### C BC ####[facility] [address] [place] [id number]. Andrade Alvarado NEUT # 1.5 103/ul Normal 1.4-6.[address] [facility] Comment on above: Performed By: #### C BC ####[facility] [address]scnyeazu[address] [place] [id number]. Andrade Alvarado Neutrophils/100 WBC (Bld) 36.4 % Critically low 43.0-75.[address] [facility] Comment on above: Performed By: #### C BC ####[facility] M[address]gcwjnhw[address] [place], [place] [address]Dr. Andrade Alvarado Platelet mean volume (Bld) [Entitic vol] 8.9 fL Critically low 9.5-13.[address] [facility] Comment on above: Performed By: #### C BC ####[facility] [address] [place], [place] [address]Dr. Andrade Alvarado PLT 237 103/ul Normal 150-[address] [facility] Comment on above: Performed By: #### C BC ####[facility] [address]whzhbeop[address] [place], [place] [address]Dr. Andrade Alvarado RBC 3.59 106/ul Critically low 4.20-5.40 [facility] Comment on above: Performed By: #### C BC ####[facility] [address] [place] [id number] Andrade Alvarado WBC 4.0 103/ul Normal 4.0-11.[address] [facility] Comment on above: Performed By: #### C BC ####[facility] [address]ucz[address] [place] [id number]. Andrade Alvarado CRPon 05-20-2022 CRP [Mass/Vol] mg/L Normal <=1.0 [facility] Comment on above: Performed By: #### C MP, CRP, TSH ####[facility] [address]jwwinj[address] [place], [place] [address]Dr. Andrade Alvarado PROF 14(COMP METB)on 022 Albumin [Mass/Vol] 4.2 g/dL Normal 3.4-5.0 [facility] Comment on above: Performed By: #### C MP, CRP, TSH #### [facility] [address] [place] [address] [address] Andrade Alvarado Albumin/Globulin [Mass ratio] 1.3 {ratio} Normal [facility] [place] Comment on above: Performed By: #### C MP, CRP, TSH #### [facility] [address] [place] [address] [address] Andrade Alvarado ALP [Catalytic activity/Vol] 50 U/L Normal 46-116 [facility] [place] Comment on above: Performed By: #### C MP, CRP, TSH #### [facility] [address] [place] [address] [address] Andrade Alvarado ALT [Catalytic activity/Vol] 23 U/L Normal 14-59 [facility] [place] Comment on above: Performed By: #### C MP, CRP, TSH #### [facility] [address] [place] [address] [address] Andrade Alvarado Anion gap [Moles/Vol] 11.3 mmol/L Normal [facility] [place] Comment on above: Performed By: #### C MP, CRP, TSH #### [facility] [address] [place] [address] [address] Andrade Alvarado AST [Catalytic activity/Vol] 23 U/L Normal 15-37 [facility] [place] Comment on above: Performed By: #### C MP, CRP, TSH #### [facility] [address] [place] [address] [address] Andrade Alvarado Bilirubin [Mass/Vol] 0.5 mg/dL Normal 0.2-1.0 [facility] [place] Comment on above: Performed By: #### C MP, CRP, TSH #### [facility] [address] [place] [address] [address] Andrade Avlarado Calcium [Mass/Vol] 9.3 mg/dL Normal 8.5-10.1 [facility] [place] [facility] Comment on above: Performed By: #### C MP, CRP, TSH #### [facility] [address] [place] [address] [address] Andrade Alvarado Chloride [Moles/Vol] 104 mmol/L Normal 98-107 [facility] [place] Comment on above: Performed By: #### C MP, CRP, TSH #### [facility] [address] [place] [address] [address] Andrade Alvarado CO2 [Moles/Vol] 27.2 mmol/L Normal 21.0-32.0 [facility] Comment on above: Performed By: #### C MP, CRP, TSH #### [facility] [address] [place] [address] [address] Andrade Alvarado Creatinine [Mass/Vol] 0.99 mg/dL Normal 0.55-1.02 [facility] [place] Comment on above: Performed By: #### C MP, CRP, TSH #### [facility] [address] [place] [address] [address] Andrade Alvarado EGFR-AF DANISH >60 Normal >=60 [facility] Comment on above: Performed By: #### C MP, CRP, TSH #### [facility] [address] [place] [address] [address] Andrade Alvarado EGFR-NON AF DANISH 57 mL/min/1.73m2 Critically low >=60 [facility] [place] Comment on above: Performed By: #### C MP, CRP, TSH #### [facility] [address] [place] [address] [address] Andrade Alvarado Globulin (S) [Mass/Vol] 3.3 g/dL Normal [facility] [place] Comment on above: Performed By: #### C MP, CRP, TSH #### [facility] [address] [place] [address] [address] Andrade Alvarado Glucose [Mass/Vol] 97 mg/dL Normal 74-106 [facility] Comment on above: Performed By: #### C MP, CRP, TSH #### [facility] [address] [place] [address] [address] Andrade Alvarado Potassium [Moles/Vol] 3.5 mmol/L Normal 3.5-5.1 [facility] [place] Comment on above: Performed By: #### C MP, CRP, TSH #### [facility] [address] [place] [address] [address] Andrade Alvarado Protein [Mass/Vol] 7.5 g/dL Normal 6.4-8.2 [facility] Comment on above: Performed By: #### C MP, CRP, TSH #### [facility] [address] [place] [address] [address] Andrade Alvarado Sodium [Moles/Vol] 139 mmol/L Normal 136-145 [facility] Comment on above: Performed By: #### C MP, CRP, TSH #### [facility] [address] [place] [address] [address] Andrade Alvarado Urea nitrogen [Mass/Vol] 22.0 mg/dL Critically high 7.0-18.0 [facility] [place] Comment on above: Performed By: #### C MP, CRP, TSH #### [facility] [address] [place] [address] [address] Andrade Alvarado Urea nitrogen/Creatinine [Mass ratio] 22.2 mg/mg Normal [facility] [place] Comment on above: Performed By: #### C MP, CRP, TSH #### [facility] [address] [place] [address] Dr. Andrade Alvarado [facility] mm/hr Normal <=30 [facility] [place] Comment on above: Performed By: #### S EDR ####[facility] [address] [place] [address]Dr. Andrade Alvarado TSHon 05-20-2022 TSH 1.373 uIU/mL Normal 0.358-3.740 [facility] Comment on above: Performed By: #### C MP, CRP, TSH #### [facility] [address] [place] [address] Dr. Andrade Alvarado CBC AUTO DIFFon 02-16-2022 BASO # 0.0 103/ul Normal 0.0-0.1 [facility] [place] Comment on above: Performed By: #### C BC ####[facility] [address]bs[address] [place] [id number]. Andrade Alvarado Basophils/100 WBC (Bld) 0.9 % Normal 0.2-2.[address] [facility] Comment on above: Performed By: #### C BC ####[facility] [address] [place] [id number]. Andrade Alvarado EO # 0.1 103/ul Normal 0.0-0.[address] [facility] Comment on above: Performed By: #### C BC ####[facility] [address]awtwe[address] [place], [place] [address]Dr. Andrade Alvarado Eosinophils/100 WBC (Bld) 2.3 % Normal 0.9-7.[address] [facility] Comment on above: Performed By: #### C BC ####[facility] [address] [place], [place] [address]Dr. Andrade Alvarado Erythrocyte distribution width (RBC) [Ratio] 12.6 % Normal 11.0-15.[address] [facility] Comment on above: Performed By: #### C BC ####[facility] [address]isiqfa[address] [place], [place] [address]Dr. Andrade Alvarado Hematocrit (Bld) [Volume fraction] 37.8 % Normal 36.0-48.[address] [facility] Comment on above: Performed By: #### C BC ####[facility] [address] [place], [place] [address]Dr. Andrade Alvarado Hemoglobin (Bld) [Mass/Vol] 12.3 g/dL Normal 12.0-16.[address] [facility] Comment on above: Performed By: #### C BC ####[facility] [address] [place] [id number]. Andrade Alvarado IG # 0.02 10e3/ul Normal 0.00-0.[address] [facility] Comment on above: Performed By: #### C BC ####[facility] [address]ls[address] [place], [place] [address]Dr. Andrade Alvarado IG % 0.5 % Normal 0.0-0.[address] [facility] Comment on above: Performed By: #### C BC ####[facility] [address]ip[address] [place] [id number]. Andrade Alvarado LYMPH # 2.1 103/ul Normal 1.2-3.[address] [facility] Comment on above: Performed By: #### C BC ####[facility] [address]tqnn[address] [place] [id number]. Andrade Alvarado Lymphocytes/100 WBC (Bld) 48.3 % Normal 20.5-60.[address] [facility] Comment on above: Performed By: #### C BC ####[facility] [address]nt[address] [place] [id number]. Andrade Christiano MANUAL DIFF REQ NO Normal [facility] Comment on above: Performed By: #### C BC ####[facility] [address]bp[address] [place] [id number]. Andrade Christiano MCH (RBC) [Entitic mass] 31.9 pg Normal 26.7-34.[address] [facility] Comment on above: Performed By: #### C BC ####[facility] [address]clmfb[address] [place] [id number]. Andrade Alvarado MCHC (RBC) [Mass/Vol] 32.5 g/dL Normal 29.9-35.[address] [facility] Comment on above: Performed By: #### C BC ####[facility] [address]df[address] [place] [id number]. Andrade Alvarado MCV (RBC) [Entitic vol] 97.9 fL Normal 81.0-99.[address] [facility] Comment on above: Performed By: #### C BC ####[facility] [address] [place] [id number]. Andrade Christiano MONO # 0.5 103/ul Normal 0.3-0.[address] [facility] Comment on above: Performed By: #### C BC ####[facility] [address]wtcsode[address] [place] [id number]. Andrade Christiano Monocytes/100 WBC (Bld) 11.2 % Normal 1.7-12.[address] [facility] Comment on above: Performed By: #### C BC ####[facility] F[address]xxjqqxek[address] [place] [id number]. Kellengregory Christiano NEUT # 1.6 103/ul Normal 1.4-6.[address] [facility] Comment on above: Performed By: #### C BC ####[facility] [address]vrws[address] [place] [id number]. Andrade Alvarado Neutrophils/100 WBC (Bld) 36.8 % Critically low 43.0-75.[address] [facility] Comment on above: Performed By: #### C BC ####[facility] [address]ivx[address] [place] [id number]. Andrade Alvarado Platelet mean volume (Bld) [Entitic vol] 9.9 fL Normal 9.5-13.[address] [facility] Comment on above: Performed By: #### C BC ####[facility] [address]whuk[address] [place] [id number]. Andrade Alvarado PLT 213 103/ul Normal 150-[address] [facility] Comment on above: Performed By: #### C BC ####[facility] [address]wn[address]zdc7[address] [place] [id number] Alvarado RBC 3.86 106/ul Critically low 4.20-5.40 [facility] Comment on above: Performed By: #### C BC ####[facility] [address]lkgjw[address] [place] [id number] Alvarado WBC 4.4 103/ul Normal 4.0-11.0 [facility] [place] Comment on above: Performed By: #### C BC ####[facility] [address]ktlambc[address] [place] [id number] Alvarado PROF 14(COMP METB)on 022 Albumin [Mass/Vol] 4.2 g/dL Normal 3.4-5.0 [facility] [place] [facility] Comment on above: Performed By: #### C MP #### [facility] [address] [place], [place] [address] Dr. Andrade Alvarado Albumin/Globulin [Mass ratio] 1.3 {ratio} Normal [facility] [place] Comment on above: Performed By: #### C MP #### [facility] [address] [place] [address] Dr. Andrade Alvarado ALP [Catalytic activity/Vol] 61 U/L Normal 46-[address] [facility] Comment on above: Performed By: #### C MP #### [facility] [address] [place] [address] Dr. Andrade Alvarado ALT [Catalytic activity/Vol] 23 U/L Normal 14-59 [facility] [place] Comment on above: Performed By: #### C MP #### [facility] [address] [place] [address] Dr. Andrade Alvarado Anion gap [Moles/Vol] 15.5 mmol/L Normal [facility] [place] Comment on above: Performed By: #### C MP #### [facility] [address] [place] [address] Dr. Andrade Alvarado AST [Catalytic activity/Vol] 20 U/L Normal 15-37 [facility] [place] Comment on above: Performed By: #### C MP #### [facility] [address] [place] [address] Dr. Andrade Alvarado Bilirubin [Mass/Vol] 0.5 mg/dL Normal 0.2-1.0 [facility] [place] Comment on above: Performed By: #### C MP #### [facility] [address] [place] [address] Dr. Andrade Alvarado Calcium [Mass/Vol] 9.1 mg/dL Normal 8.5-10.1 [facility] Comment on above: Performed By: #### C MP #### [facility] [address] [place] [address] Dr. Andrade Alvarado Chloride [Moles/Vol] 106 mmol/L Normal 98-[address] [facility] Comment on above: Performed By: #### C MP #### [facility] [address] [place] [address] Dr. Andrade Alvarado CO2 [Moles/Vol] 25.6 mmol/L Normal 21.0-32.0 [facility] Comment on above: Performed By: #### C MP #### [facility] [address] [place] [address] Dr. Andrade Alvarado Creatinine [Mass/Vol] 0.97 mg/dL Normal 0.55-1.[address] [facility] Comment on above: Performed By: #### C MP #### [facility] [address] [place] [address] [address] Andrade Alvarado EGFR-AF DANISH >60 Normal >=60 [facility] Comment on above: Performed By: #### C MP #### [facility] [address] [place] [address] [address] Andrade Alvarado EGFR-NON AF DANISH 58 mL/min/1.73m2 Critically low >=60 [facility] [place] Comment on above: Performed By: #### C MP #### [facility] [address] [place] [address] Dr. Andrade Alvarado Globulin (S) [Mass/Vol] 3.2 g/dL Normal [facility] [place] Comment on above: Performed By: #### C MP #### [facility] [address] [place] [address] [address] Andrade Alvarado Glucose [Mass/Vol] 91 mg/dL Normal 74-106 [facility] [place] [facility] Comment on above: Performed By: #### C MP #### [facility] [address] [place] [address] [address] Andrade Alvarado Potassium [Moles/Vol] 4.1 mmol/L Normal 3.5-5.[address] [facility] Comment on above: Performed By: #### C MP #### [facility] [address] [place] [address] [address] Andrade Alvarado Protein [Mass/Vol] 7.4 g/dL Normal 6.4-8.2 [facility] [place] [facility] Comment on above: Performed By: #### C MP #### [facility] [address] [place] [address] [address] Andrade Alvarado Sodium [Moles/Vol] 143 mmol/L Normal 136-145 [facility] [place] [facility] Comment on above: Performed By: #### C MP #### [facility] [address] [place] [address] [address] Andrade Alvarado Urea nitrogen [Mass/Vol] 18.0 mg/dL Normal 7.0-18.0 [facility] Comment on above: Performed By: #### C MP #### [facility] [address] [place] [address] [address] Andrade Alvarado Urea nitrogen/Creatinine [Mass ratio] 18.6 mg/mg Normal [facility] [place] Comment on above: Performed By: #### C MP #### [facility] [address] [place] [address] [address] Andrade Alvarado SED RATE [facility] 2021 SED RATE 15 mm/hr Normal <=30 [facility] [place] Comment on above: Performed By: #### S EDR #### [facility] [address] [place] [address] [address] Andrade Alvarado KNEE LEFT 3 VWSon 04-25-2020 KNEE LEFT 3 VWS [facility] Department of Radiology [address] [place] [id number] Patient Name: RADHA ZAIDI : 1960 Sex: F Age: Race: White Pt. 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 Electronically signed: Eliezer Cam. Transcribed by: [email or web address], User Resident: Electronically Signed by: ELIEZER CAM @ 04/25/2020 11:44 AM Normal [facility] Comment on above: Order Comment: Evalu ate TIBIA FIBULA LEFTon 03-27-20 20 TIBIA FIBULA LEFT [facility] Department of Radiology [address] [place] [id number] Patient Name: RADHA ZAIDI : 1960 [...] healing Electronically signed: Crissy Dubon. Transcribed by: [email or web address], User Resident: Electronically Signed by: CRISSY DUBON @ 03/27/2020 09:11 AM Normal [facility] Comment on above: Order Comment: Evalu ate Operative Reporton 0 Operative Report MR#: [id number] S [facility] Pt. Name: Radha Zaidi Room #: [...] were bluntly retracted. We then used a [place] as well as a hemostat to debride [...] Paniagua MD Date Trans: 03/13/2020 02:26 A/bryson [id number] cc: John Ashby D.O. [address] [place] [phone] Normal [facility] KNEE LEFT 1 OR 2 [facility] 03-12 KNEE LEFT 1 OR 2 [facility] Department of Radiology [address] [place] [address] Patient Name: RADHA ZAIDI : [...] fracture. Electronically signed: Rahul James. Transcribed by: [email or web address], User Resident: Electronically Signed by: RAHUL JAMES @ 03/12/2020 03:20 PM Normal [facility] Comment on above: Order Comment: Evalu ate POC GLUCOSE LABon 03-12-2020 Glucose [Mass/Vol] 103 mg/dL High 70-100 [facility] Comment on above: Performed By: #### 8 [id number] ####[facility] *MRSA/MSSA DNA NASALon 03-08 *MRSA/MSSA DNA NASAL Clinical Report: (D) Specimen: NASAL SWAB Collected: 03/08/2020 14:02 Status: Final Last Updated: 03/09/2020 09:30 MSSA DNA (Final) Negative MRSA DNA (Final) Negative Normal [facility] Comment on above: Performed By: #### 3 [id number] ####[facility] [place] [address], [facility] *SARS-CoV-2 COVID-19on 03-08 [id number] Not Detected Normal Not Detected [facility] Comment on above: Order Comment: The A ptima SARS-CoV-2 assay is a nucleic acid amplification test intended for the qualitative detection of RNA from SARS-CoV-2 isolated and purified from nasopharyngeal (HRIS COORDINATOR),oropharyngeal (OP), nasal swab, sputum, and bronchoalveolar lavage (BAL) specimens from patients with signs and symptoms of infection who are suspected of COVID-19. Results are for the identification of SARS-CoV-2 RNA. The SARS-CoV-2 RNA is generally detectable during the acute phase of infection. The Aptima SARS-CoV-2 Assay on the [employer] and [employer] Fusion system is intended for use by laboratory personnel specifically instructed and trained in the operation of the [employer] and [employer] system. The Aptima SARS-CoV-2 assay is [...] information. Performed By: #### 3 1792 #### [facility] [address] APTTon 03-08-2020 aPTT Coag (Bld) [Time] 26.9 s Normal 25.0-35.0 [facility] Comment on above: Result Comment: ALL [...] THIS PURPOSE. Performed By: #### 5 6101, 14424 ####[facility] [place] [address], [facility] BASIC METABOLIC PANELon 02-09 Calcium [Mass/Vol] 9.7 mg/dL Normal 8.6-10.3 [facility] Comment on above: Performed By: #### 0 0071 #### [facility] [address] [place] [address], [facility] Chloride [Moles/Vol] 103 mmol/L Normal 98-107 [facility] Comment on above: Performed By: #### 0 0071 #### [facility] [address] [place] [address], [place] CO2 [Moles/Vol] 31 mmol/L Normal 21-31 [facility] Comment on above: Performed By: #### 0 0071 #### [facility] [address] [place] [address], [facility] Creatinine [Mass/Vol] 0.87 mg/dL Normal 0.60-1.20 [facility] Comment on above: Performed By: #### 0 0071 #### [facility] [address] [place] [address], [place] GFR/1.73 sq M predicted among blacks MDRD (S/P/Bld) [Vol rate/Area] mL/min/{1.73_m2} Normal >60 [facility] Comment on above: Performed By: #### 0 0071 #### [facility] [address] [place] [address], [place] GFR/1.73 sq M predicted among non-blacks MDRD (S/P/Bld) [Vol rate/Area] mL/min/{1.73_m2} Normal >60 [facility] Comment on above: Performed By: #### 0 0071 #### [facility] [address] [place] [address], [place] Glucose [Mass/Vol] 106 mg/dL High 70-100 [facility] Comment on above: Performed By: #### 0 0071 #### [facility] [address] [place] [address], [place] Potassium [Moles/Vol] 4.3 mmol/L Normal 3.5-5.1 [facility] Comment on above: Performed By: #### 0 0071 #### [facility] [address] [facility] [place] [address], [facility] Sodium [Moles/Vol] 141 mmol/L Normal 136-145 [facility] Comment on above: Performed By: #### 0 0071 #### [facility] [address] [facility]. [address] Urea nitrogen [Mass/Vol] 14 mg/dL Normal 7-25 [facility] Comment on above: Performed By: #### 0 1 #### [facility] [address] [facility] [place] [address], [facility] CBC W/DIFFon 03-08-2020 ABS BASOPHILS 0.1 10*3/uL Normal 0.0-0.2 [facility] Comment on above: Performed By: #### 5 102 ####[facility] [facility].[address] ABS IMM GRANS 0.0 10*3/uL Normal 0.0-0.2 [facility] Comment on above: Performed By: #### 5 102 ####[facility] ABS NEUTROPHILS 3.4 10*3/uL Normal 1.6-7.6 [facility] Comment on above: Performed By: #### 5 102 ####[facility] [place] [address], [facility] Basophils/100 WBC (Bld) 0.8 % Normal 0.0-1.0 [facility] Comment on above: Performed By: #### 5 102 ####[facility] [place] [address], [facility] Eosinophils (Bld) [#/Vol] 0.7 10*3/uL High 0.0-0.5 [facility] Comment on above: Performed By: #### 5 0103 ####[facility] [facility] [place] [address], [facility] Eosinophils/100 WBC (Bld) 9.5 % High 0.0-6.0 [facility] Comment on above: Performed By: #### 5 0103 ####[facility]3000 [facility].[address] Erythrocyte distribution width (RBC) [Ratio] 13.6 % Normal 11.5-15.0 [facility] Comment on above: Performed By: #### 5 0103 ####[facility] [facility].[address] Hematocrit (Bld) [Volume fraction] 42.5 % Normal 36.0-45.0 [facility] Comment on above: Performed By: #### 5 0103 ####[facility] [facility].[address] Hemoglobin (Bld) [Mass/Vol] 13.7 g/dL Normal 12.0-15.0 [facility] Comment on above: Performed By: #### 5 0103 ####[facility] [facility] [place] [address], [facility] IMMATURE GRANS 0.3 % Normal 0.0-1.0 [facility] Comment on above: Performed By: #### 5 0103 ####[facility] [facility] [place] [address], [facility] Lymphocytes (Bld) [#/Vol] 2.7 10*3/uL Normal 1.2-4.0 [facility] Comment on above: Performed By: #### 5 0103 ####[facility] [facility] [place] [address], [facility] Lymphocytes/100 WBC (Bld) 35.1 % Normal 20.0-45.0 [facility] Comment on above: Performed By: #### 5 0103 ####[facility] [facility].[address] MCH (RBC) [Entitic mass] 31.2 pg Normal 27.0-33.0 [facility] Comment on above: Performed By: #### 5 0103 ####[facility] [facility].[address] MCHC (RBC) [Mass/Vol] 32.2 g/dL Normal 32.0-35.0 [facility] Comment on above: Performed By: #### 5 3 ####[facility] MCV (RBC) [Entitic vol] 96.8 fL Normal 82.0-98.0 [facility] Comment on above: Performed By: #### 3 ####[facility] [facility].[address] Monocytes (Bld) [#/Vol] 0.8 10*3/uL Normal 0.1-1.0 [facility] Comment on above: Performed By: #### 3 ####[facility]3000 [facility].[address] MONOS 9.8 % Normal 5.0-12.0 [facility] Comment on above: Performed By: #### 5 3 ####[facility] Neutrophils/100 WBC (Bld) 44.5 % Normal 40.0-72.0 [facility] Comment on above: Performed By: #### 3 ####[facility] [facility].[address] Nucleated RBC/100 WBC (Bld) [Ratio] 0 % Normal 0-0 [facility] Comment on above: Performed By: #### 5 0103 ####[facility] PLAT CNT 230 10*3/uL Normal 150-400 [facility] Comment on above: Performed By: #### 5 0103 ####[facility] RBC (Bld) [#/Vol] 4.39 10*6/uL Normal 3.80-5.00 [facility] Comment on above: Performed By: #### 5 0103 ####[facility] WBC (Bld) [#/Vol] 7.72 10*3/uL Normal 4.00-10.60 [facility] Comment on above: Performed By: #### 5 0103 ####[facility] PROTHROMBIN TIMEon 0 INR Coag (PPP) [Relative time] 0.99 {INR} Normal 0.91-1.16 [facility] Comment on above: Result Comment: ACCC [...] CHEST 1995;108:231S-246S. Performed By: #### 5 6101, 88843 #### [facility] [address] [place] [address], [facility] PT Coag (PPP) [Time] 13.1 s Normal 12.3-14.8 [facility] Comment on above: Result Comment: ALL RESULTS MUST BE INTERPRETED WITH RESPECT TO BLOOD DRAWING ARTIFACT OR DILUTION ERROR OF ANTICOAGULANT AT THE TIME OF SAMPLING. Performed By: #### 5 6101, 54646 #### [facility] [address] [place] [address], [facility] ALBUMIN BLOODon 02-04-2020 Albumin [Mass/Vol] 4.5 g/dL Normal 3.5-5.7 [facility] Comment on above: Performed By: #### 3 0728, 56332, 09302, 90588, 75835 #### [facility] [address] [place] [address], [place] BASIC METABOLIC PANELon 01-09 Calcium [Mass/Vol] 9.5 mg/dL Normal 8.6-10.3 [facility] Comment on above: Performed By: #### 3 0728, 98671, 20152, 71694, 73751 #### [facility] [address] [place] [address], [place] Chloride [Moles/Vol] 105 mmol/L Normal 98-107 [facility] Comment on above: Performed By: #### 3 0728, 47938, 57498, 37700, 90350 #### [facility] [address] [place] [address], [place] CO2 [Moles/Vol] 27 mmol/L Normal 21-31 [facility] Comment on above: Performed By: #### 3 0728, 01111, 85302, 79492, 69479 #### [facility] [address] [place] [address], [facility] Creatinine [Mass/Vol] 0.81 mg/dL Normal 0.60-1.20 [facility] Comment on above: Performed By: #### 3 0728, 45983, 23904, 15354, 28440 #### [facility] [address] [place] [address], [facility] GFR/1.73 sq M predicted among blacks MDRD (S/P/Bld) [Vol rate/Area] mL/min/{1.73_m2} Normal >60 [facility] Comment on above: Performed By: #### 3 0728, 81289, 06032, 31498, 40894 #### [facility] [address] [place] [address], [facility] GFR/1.73 sq M predicted among non-blacks MDRD (S/P/Bld) [Vol rate/Area] mL/min/{1.73_m2} Normal >60 [facility] Comment on above: Performed By: #### 3 0728, 63854, 10560, 27262, 03557 #### [facility] [address] [place] [address], [facility] Glucose [Mass/Vol] 115 mg/dL High 70-100 [facility] Comment on above: Performed By: #### 3 0728, 79718, 41808, 75907, 45761 #### [facility] [address] [place] [address], [place] Potassium [Moles/Vol] 3.9 mmol/L Normal 3.5-5.1 [facility] Comment on above: Performed By: #### 3 0728, 98830, 76309, 17683, 45487 #### [facility] [address] [place] [address], [place] Sodium [Moles/Vol] 140 mmol/L Normal 136-145 [facility] Comment on above: Performed By: #### 3 0728, 09840, 55986, 90934, 02162 #### [facility] [address] [facility] [address], [facility] Urea nitrogen [Mass/Vol] 20 mg/dL Normal 7-25 [facility] Comment on above: Performed By: #### 3 0728, 44999, 02170, 47804, 97577 #### [facility] [address] [facility] [address], [facility] PREALBUMINon 02-04-2020 Prealbumin [Mass/Vol] 24.0 mg/dL Normal 17.0-34.0 [facility] Comment on above: Performed By: #### 3 0728, 48844, 38662, 98823, 73576 #### [facility] [address] [facility] [place] [address], [facility] TIBIA FIBULA LEFTon 02-04-20 20 TIBIA FIBULA LEFT [facility] Department of Radiology [address] [place] [id number] Patient Name: RADHA ZAIDI : 1960 [...] indicated. Electronically signed: Eliezer Randolph. Transcribed by: [email or web address], User Resident: Electronically Signed by: ELIEZER RANDOLPH @ 02/04/2020 10:34 AM Normal [facility] TRANSFERRINon 02-04-2020 Transferrin [Mass/Vol] 270 mg/dL Normal 203-362 [facility] Comment on above: Performed By: #### 3 0728, 39457, 02312, 46513, 95767 #### [facility] [address] [facility] [place] [address], [facility] VITAMIN D 25-HYDROXYon 02-03 VITAMIN D 25-OH 38.5 ng/mL Normal 30.0-80.0 [facility] Comment on above: Result Comment: >80. 0 Toxicity possible Performed By: #### 3 0728, 34931, 15733, 94483, 20219 #### [facility] [address] [place] [address], [facility] Gregor 07-06-2018 L ------- Specimen: [id number] Received: 07/06/18 Status: JONI Lazaro Num: [id number] Spec Type: Surgical Subm Dr: Tash Resendez MD Tissues: A Finger - Amputation, Non-traumatic (LT SMALL FINGER) Procedures: HE Stain/2, Gross/Micro L4, Decal Patient Age/Sex Location Account Attending Physician Radha Zaidi 58/F MD [id number] Tash Resendez MD SPEC NUM: [id number] RECD: 07/06/18 STATUS: JONI LAZARO NUM: [id number] RUSS: 07/06/18- DR: Tash Resendez MD ENTERED: 07/06/[address] [facility] [address]: SPEC TYPE: Surgical DEPT: S ORDERED: [...] reveals yellow, viable appearing bony cut surfaces. Covered Buckle Assembler sections are submitted in two cassettes, decal. (ENRIKE/NAA/lina) Specimen: [id number] Received: 07/06/18 Status: JONI Leti Num: [id number] Spec Type: Surgical Subm Dr: Tash Resendez MD Tissues: A Finger - Amputation, Non-traumatic (LT SMALL FINGER) Procedures: HE Stain/2, Gross/Micro L4, Decal Patient: ZaidiRadha [id number] (Continued) Specimen: [id number] Received: 07/06/18 (Continued) Signed (signature on file) Harsh Jo MD 08/14/18 1503 Specimen: [id number] Received: 07/06/18 Status: JONI Lazaro Num: [id number] Spec Type: Surgical Subm Dr: Tash Resendez MD Tissues: A Finger - Amputation, Non-traumatic (LT SMALL FINGER) Procedures: VIRAL Stain/2, Gross/Micro L4, Decal Patient: Radha Zaidi [id number] (Continued) Specimen: [id number] Received: 07/06/18 (Continued) Microscopic Two glass slides with H E stained material have been examined. The microscopic findings support the above pathologic diagnosis. [id number] A. - - LT SMALL FINGER Specimen: [id number] Received: 07/06/18 Status: JONI Leti Num: [id number] Spec Type: Surgical Subm Dr: Tash Resendez MD Tissues: A Finger - Amputation, Non-traumatic (LT SMALL FINGER) Procedures: HE Stain/2, Gross/Micro L4, Decal Patient: Radha Zaidi [id number] (Continued) Signed (signature on file) Harsh Jo MD 08/14/18 1503 Normal [facility] FLUORO FOR SURGICAL PROCEDUR ESon 10-20-2017 FLUORO FOR SURGICAL PROCEDURES Exam: FLUORO FOR SURGICAL PROCEDURESHistory: ACDF Fusion Findings: Fluoroscopy time was 70 seconds A total of 19 fluoroscopic images were obtained by Dr. Cheng during the anterior cervical discectomy in the lower cervical spine.IMPRESSION: Impression: Fluoroscopic assistance provided for operative guidance.Interpreted by:DIANA Lealigned by:Eugene Cancino MD10/20/17inal result Normal [facility] Basic Metabolic Panelon Anion gap 15 mmol/L Critically high 7-13 [facility] Calcium 9.6 mg/dL Normal 8.6-10.2 [facility] Chloride 102 mmol/L Normal 98-107 [facility] CO2 23 mmol/L Normal 22-29 [facility] Creatinine 0.54 mg/dL Normal 0.50-0.90 [facility] eGFR (black) mL/min/{1.73_m2} Normal >60 [facility] Comment on above: Result Comment: >60 mL/min/1.73m2 EGFR, calc. for ages 18 and older using theMDRD formula (not corrected for weight), is valid for stablerenal function. eGFR (MDRD) mL/min/{1.73_m2} Normal >60 [facility] Comment on above: Result Comment: >60 mL/min/1.73m2 EGFR, calc. for ages 18 and older using theMDRD formula (not corrected for weight), is valid for stablerenal function. Glucose mass conc 97 mg/dL Normal 74-109 [facility] Potassium molar conc 4.8 mmol/L Normal 3.5-5.1 [facility] Sodium 140 mmol/L Normal 132-144 [facility] Urea nitrogen 14 mg/dL Normal 6-20 [facility] CBC With Platelet No Differe ntialon 10-13-2017 Erythrocyte distribution width Auto Ratio (RBC) 13.3 % Normal 11.5-14.5 [facility] Erythrocytes (RBC) 4.96 10*6/uL Normal 4.20-5.40 [facility] Hematocrit (HCT) 47.1 % Critically high 37.0-47.0 [facility] Hemoglobin mass conc (Bld) 16.2 g/dL Critically high 12.0-16.0 [facility] MCH 32.7 pg Critically high 27.0-31.3 [facility] MCHC mass conc (RBC) 34.4 % Normal 33.0-37.0 [facility] MCV 95.0 fL Normal 82.0-100.0 [facility] Platelets 223 10*3/uL Normal 130-400 [facility] WBC (Leukocytes) 6.2 10*3/uL Normal 4.8-10.8 [facility] Culture, MRSA Screenon 10-13 Culture, MRSA Screen ORDERED BY: VITO STALLWORTH: Nares Nose COLLECTED: 10/13/17 13:18ANTIBIOTICS AT [facility].: RECEIVED : 10/13/17 13:18Culture, MRSA Screen FINAL 10/14/17 13:59 No MRSA isolated Normal [facility] Partial Thromboplastin Timeo n 10-13-2017 aPTT 22.9 s Normal 21.6-35.4 [facility] Comment on above: Result Comment: Hepa rin Therapeutic Range: 38.8 - 54.6 seconds. Prothrombin Timeon 8 INR Coag RelTime (PPP) 1.0 {INR} Normal [facility] Comment on above: Result Comment: [...] Coag time (PPP) 10.0 s Normal 8.1-13.7 [facility] Type and Screen Capture 3 sc rn cellon 10-13-2017 Bilirubin (total) PATIENT: DYAN HERNANDES LOC: [facility] BILL# : [id number] : 1960 SEX: FORDERED BY: BASIM CHENG ORDERED : 10/13/2017 12:41 COLLECTED: 10/13/2017 13:24ORDER : [id number] RECEIVED : 10/13/2017 13:24 --TEST NAME RESULT UNITS RANGES ABN FL STABORH Capture A POS FAntibody 3 Cell Scrn Captu NEG F Normal [facility] Urinalysis, reflex to cultur gabbie 10-13-2017 Bilirubin Ql (U) Negative Normal Negative [facility] Urine Reflexed to Culture Not Indicated Normal [facility] Urine, clarity Clear Normal Clear [facility] Urine, color Yellow Normal Straw/Valencia [facility] Urine, glucose presence Negative Normal Negative [facility] Urine, hemoglobin presence Negative Normal Negative [facility] Urine, ketones presence Negative Normal Negative [facility] Urine, leukocyte esterase presence Negative Normal Negative [facility] Urine, nitrite presence Negative Normal Negative [facility] Urine, pH 5.5 [pH] Normal 5.0-9.0 [facility] Urine, protein presence Negative Normal Negative [facility] Urine, specific gravity 1.018 Normal 1.005-1.03 [facility] Urine, urobilinogen 0.2 {Rajwinder'U}/dL Normal < 2.0 [facility] Vital Signs Date Time Vital Sign Value Performing Clinician Facility 10-04-2024 14:49-0400 Body height 162.6 cm Jordan Yuan [employer] Work Phone: [facility] 10-04-2024 14:49-0400 Body mass index (BMI) [Ratio] 28.15 kg/m2 Jordan [employer] Work Phone: [facility] 10-04-2024 14:49-0400 Body weight 74.39 kg Jordan Yuan [employer] Work Phone: [facility] 09-25-2024 10:34-0400 Body height 165.1 cm [facility] 09-25-2024 10:34-0400 Body mass index (BMI) [Ratio] 22.1 kg/m2 [facility] 09-25-2024 10:34-0400 Body weight 60.44 kg [facility] 09-25-2024 10:34-0400 Diastolic blood pressure 86 mm[Hg] [facility] 09-25-2024 10:34-0400 Heart rate 72 /min [facility] 09-25-2024 10:34-0400 Respiratory rate 16 /min [facility] 09-25-2024 10:34-0400 SaO2% (BldA) [Mass fraction] 97 % [facility] 09-25-2024 10:34-0400 Systolic blood pressure 137 mm[Hg] [facility] 09-18-2024 10:17-0400 Body height 162.6 cm Jordan Yuan [employer] Work Phone: [facility] 09-18-2024 10:17-0400 Body mass index (BMI) [Ratio] 28.15 kg/m2 Jordan [employer] Work Phone: [facility] 09-18-2024 10:17-0400 Body weight 74.39 kg Jordan Yuan [employer] Work Phone: [facility] 08-29-2024 15:44-0500 Body height 165.1 cm [facility] 08-29-2024 15:44-0500 Body mass index (BMI) [Ratio] 22 kg/m2 [facility] 08-29-2024 15:44-0500 Body weight 60.04 kg [facility] 08-29-2024 15:44-0500 Diastolic blood pressure 54 mm[Hg] [facility] 08-29-2024 15:44-0500 Heart rate 57 /min [facility] 08-29-2024 15:44-0500 Respiratory rate 12 /min [facility] 08-29-2024 15:44-0500 Systolic blood pressure 136 mm[Hg] [facility] 07-17-2024 15:06-0500 Body height 162.6 cm Jordan Brown DO Work Phone: [facility] 07-17-2024 15:06-0500 Body mass index (BMI) [Ratio] 28.15 kg/m2 Jordan Brown DO Work Phone: [facility] 07-17-2024 15:06-0500 Body weight 74.39 kg Jordan Brown DO Work Phone: [facility] 06-05-2024 14:20-0500 Body height 162.6 cm Jordan Brown DO Work Phone: [facility] 06-05-2024 14:20-0500 Body mass index (BMI) [Ratio] 28.15 kg/m2 Jordan Brown DO Work Phone: [facility] 06-05-2024 14:20-0500 Body temperature 97.5 [degF] Jordan Brown DO Work Phone: [facility] 06-05-2024 14:20-0500 Body weight 74.39 kg Jordan Brown DO Work Phone: [facility] 05-08-2024 10:38-0400 Body height 162.6 cm Jordan Brown DO Work Phone: [facility] 05-08-2024 10:38-0400 Body mass index (BMI) [Ratio] 28.15 kg/m2 Jordan Brown DO Work Phone: [facility] 05-08-2024 10:38-0400 Body temperature 97.39 [degF] Jordan Yuan DO Work Phone: [facility] 05-08-2024 10:38-0400 Body weight 74.39 kg Jordan Yuan DO Work Phone: [facility] 04-27-2024 13:08-0400 Heart rate 80 /min Jordan Yuan [facility] 04-27-2024 13:08-0400 SaO2% (BldA) [Mass fraction] 94 % Jordan Yuan [facility] 04-27-2024 13:08-0400 Blood Pressure Location Jordan Yuan [facility] 04-27-2024 13:08-0400 Diastolic blood pressure 72 mm[Hg] Jordan Yuan [facility] 04-27-2024 13:08-0400 Mean blood pressure 93 mm[Hg] Jordan Yuan [facility] 04-27-2024 13:08-0400 Systolic blood pressure 136 mm[Hg] Jordan Yuan [facility] 04-27-2024 13:08-0400 Respiratory rate 18 /min Jordan Yuan [facility] 04-27-2024 11:23-0400 Heart rate 72 /min Jordan Yuan [facility] 04-27-2024 11:23-0400 SaO2% (BldA) [Mass fraction] 100 % Jordan Yuan [facility] 04-27-2024 11:22-0400 Blood Pressure Location Jordan Yuan [facility] 04-27-2024 11:22-0400 Diastolic blood pressure 66 mm[Hg] Jordan Yuan [facility] 04-27-2024 11:22-0400 Mean blood pressure 86 mm[Hg] Jordan Yuan [facility] 04-27-2024 11:22-0400 Systolic blood pressure 126 mm[Hg] Jordan Yuan [facility] 04-27-2024 11:22-0400 Respiratory rate 18 /min Jordan Yuan [facility] 04-27-2024 11:15-0400 Blood Pressure Location Jordan Yuan [facility] 04-27-2024 11:15-0400 Body temperature 97.16 [degF] Jordan Yuan [facility] 04-27-2024 11:15-0400 Diastolic blood pressure 62 mm[Hg] Jordan Yuan [facility] 04-27-2024 11:15-0400 Heart rate 79 /min Jordan Yuan [facility] 04-27-2024 11:15-0400 Mean blood pressure 81 mm[Hg] Jordan Yuan [facility] 04-27-2024 11:15-0400 Respiratory rate 20 /min Jordan Yuan [facility] 04-27-2024 11:15-0400 SaO2% (BldA) [Mass fraction] 100 % Jordan Yuan [facility] 04-27-2024 11:15-0400 Systolic blood pressure 118 mm[Hg] Jordan Yuan [facility] 04-27-2024 11:05-0400 Mean blood pressure 91 mm[Hg] Jordan Yuan [facility] 04-27-2024 11:05-0400 Respiratory rate 16 /min Jordan Yuan [facility] 04-27-2024 10:50-0400 Mean blood pressure 88 mm[Hg] Jordan Yuan [facility] 04-27-2024 10:50-0400 Respiratory rate 9 /min Jordan Yuan [facility] 04-27-2024 10:10-0400 Body temperature 97.16 [degF] Jordan Yuan [facility] 04-27-2024 10:05-0400 Respiratory rate 12 /min Jordan Yuan [facility] 04-27-2024 06:23-0400 Mean blood pressure 82 mm[Hg] Jordan Yuan [facility] 04-27-2024 06:22-0400 Body temperature 97.7 [degF] Jordan Yuan [facility] 04-17-2024 15:14-0400 Body height 165.1 cm [facility] 04-17-2024 15:14-0400 Body mass index (BMI) [Ratio] 23.1 kg/m2 [facility] 04-17-2024 15:14-0400 Body weight 63.16 kg [facility] 04-17-2024 15:14-0400 Diastolic blood pressure 84 mm[Hg] [facility] 04-17-2024 15:14-0400 Heart rate 84 /min [facility] 04-17-2024 15:14-0400 Respiratory rate 12 /min [facility] 04-17-2024 15:14-0400 Systolic blood pressure 147 mm[Hg] [facility] 03-27-2024 16:24-0400 Body height 165.1 cm [facility] 03-27-2024 16:24-0400 Body mass index (BMI) [Ratio] 23.9 kg/m2 [facility] 03-27-2024 16:24-0400 Body weight 65.31 kg [facility] 03-27-2024 16:24-0400 Diastolic blood pressure 76 mm[Hg] [facility] 03-27-2024 16:24-0400 Heart rate 87 /min [facility] 03-27-2024 16:24-0400 Respiratory rate 12 /min [facility] 03-27-2024 16:24-0400 Systolic blood pressure 126 mm[Hg] [facility] 03-19-2024 12:28-0400 Diastolic blood pressure 71 mm[Hg] Jordan Yuan [facility] 03-19-2024 12:28-0400 Systolic blood pressure 126 mm[Hg] Jordan Yuan [facility] 03-19-2024 12:27-0400 Blood Pressure Location Jordan Yuan [facility] 03-19-2024 12:27-0400 Body temperature 97.88 [degF] Jordan Yuan [facility] 03-19-2024 12:27-0400 Diastolic blood pressure 78 mm[Hg] Jordan Yuan [facility] 03-19-2024 12:27-0400 Heart rate 75 /min Jordan Yuan [facility] 03-19-2024 12:27-0400 Mean blood pressure 94 mm[Hg] Jordan Yuan [facility] 03-19-2024 12:27-0400 Respiratory rate 15 /min Jordan Yuan [facility] 03-19-2024 12:27-0400 SaO2% (BldA) [Mass fraction] 97 % Jordan Yuan [facility] 03-19-2024 12:27-0400 Systolic blood pressure 127 mm[Hg] Jordan Yuan [facility] 02-29-2024 09:29-0400 Body height 165.1 cm [facility] 02-29-2024 09:29-0400 Body mass index (BMI) [Ratio] 24.1 kg/m2 [facility] 02-29-2024 09:29-0400 Body weight 65.82 kg [facility] 02-29-2024 09:29-0400 Diastolic blood pressure 81 mm[Hg] [facility] 02-29-2024 09:29-0400 Heart rate 74 /min [facility] 02-29-2024 09:29-0400 Respiratory rate 12 /min [facility] 02-29-2024 09:29-0400 Systolic blood pressure 129 mm[Hg] [facility] 12-28-2023 15:31-0400 Body height 165.1 cm [facility] 12-28-2023 15:31-0400 Body mass index (BMI) [Ratio] 25.7 kg/m2 [facility] 12-28-2023 15:31-0400 Body weight 70.08 kg [facility] 12-28-2023 15:31-0400 Diastolic blood pressure 75 mm[Hg] [facility] 12-28-2023 15:31-0400 Heart rate 92 /min [facility] 12-28-2023 15:31-0400 Respiratory rate 12 /min [facility] 12-28-2023 15:31-0400 Systolic blood pressure 112 mm[Hg] [facility] 11-15-2023 15:42-0400 Body height 162.6 cm Jordan [employer] Work Phone: [facility] 11-15-2023 15:42-0400 Body mass index (BMI) [Ratio] 28.15 kg/m2 Alb[facility] Work Phone: [facility] 11-15-2023 15:42-0400 Body weight 74.39 kg Albireo Work Phone: [facility] 09-28-2023 15:16-0400 Body height 165.1 cm [facility] 09-28-2023 15:16-0400 Body mass index (BMI) [Ratio] 27.8 kg/m2 [facility] 09-28-2023 15:16-0400 Body weight 75.92 kg [facility] 09-28-2023 15:16-0400 Diastolic blood pressure 68 mm[Hg] [facility] 09-28-2023 15:16-0400 Heart rate 80 /min [facility] 09-28-2023 15:16-0400 Respiratory rate 12 /min [facility] 09-28-2023 15:16-0400 Systolic blood pressure 130 mm[Hg] [facility] 09-05-2023 21:48-0500 Body height 166.37 cm John Ball Other [facility] Other 09-05-2023 16:33-0500 Body height 165.1 cm [facility] 09-05-2023 16:33-0500 Body mass index (BMI) [Ratio] 28.5 kg/m2 [facility] 09-05-2023 16:33-0500 Body weight 77.79 kg [facility] 09-05-2023 16:33-0500 Diastolic blood pressure 69 mm[Hg] [facility] 09-05-2023 16:33-0500 Heart rate 97 /min [facility] 09-05-2023 16:33-0500 Systolic blood pressure 115 mm[Hg] [facility] 08-18-2023 15:40-0500 Body height 162.6 cm Jordan [employer] Work Phone: [facility] 08-18-2023 15:40-0500 Body mass index (BMI) [Ratio] 28.15 kg/m2 Jordan MIT CSHub DO Work Phone: [facility] 08-18-2023 15:40-0500 Body temperature 97.11 [degF] Jordan MIT CSHub DO Work Phone: [facility] 08-18-2023 15:40-0500 Body weight 74.39 kg Jordan MIT CSHub DO Work Phone: [facility] 08-17-2023 15:00-0500 Body height 166.37 cm John Ball Other [facility] Other 08-17-2023 15:00-0500 Body mass index (BMI) [Ratio] 28.12 kg/m2 Nevro Other [facility] Other 08-17-2023 15:00-0500 Body weight 77.84 kg John Ball Other [facility] Other 08-17-2023 15:00-0500 Diastolic blood pressure 79 mm[Hg] John Ball Other [facility] Other 08-17-2023 15:00-0500 Respiratory rate 12 /min Nev[facility] Other [facility] Other 08-17-2023 15:00-0500 Systolic blood pressure 126 mm[Hg] Nevro Other [facility] Other 04-07-2023 14:00-0400 Body temperature 97.52 [degF] Jordan MIT CSHub [facility] 04-07-2023 14:00-0400 Diastolic blood pressure 63 mm[Hg] [facility] 04-07-2023 14:00-0400 Heart rate 88 /min [facility] 04-07-2023 14:00-0400 Mean blood pressure 76 mm[Hg] Jordan MIT CSHub [facility] 04-07-2023 14:00-0400 SaO2% (BldA) [Mass fraction] 94 % [facility] 04-07-2023 14:00-0400 Systolic blood pressure 101 mm[Hg] Jordan MIT CSHub [facility] 04-07-2023 08:47-0400 Diastolic blood pressure 75 mm[Hg] Jordan MIT CSHub [facility] 04-07-2023 08:47-0400 Systolic blood pressure 125 mm[Hg] Jordan Yuan [facility] 04-07-2023 07:45-0400 Blood Pressure Location Jordan Yuan [facility] 04-07-2023 07:45-0400 Body temperature 97.88 [degF] Jordan Yuan [facility] 04-07-2023 07:45-0400 Diastolic blood pressure 75 mm[Hg] Jordan Yuan [facility] 04-07-2023 07:45-0400 Heart rate 72 /min Jordan Yuan [facility] 04-07-2023 07:45-0400 Hourly Rounding Jordan Yuan [facility] 04-07-2023 07:45-0400 Mean blood pressure 92 mm[Hg] Jordan Yuan [facility] 04-07-2023 07:45-0400 Promise to Return Jordan Yuan [facility] 04-07-2023 07:45-0400 Respiratory rate 16 /min Jordan Yuan [facility] 04-07-2023 07:45-0400 SaO2% (BldA) [Mass fraction] 96 % Jordan Yuan [facility] 04-07-2023 07:45-0400 Systolic blood pressure 125 mm[Hg] Jordan Yuan [facility] 04-07-2023 06:17-0400 Hourly Rounding Jordan Yuan [facility] 04-07-2023 06:17-0400 Promise to Return Jordan Yuan [facility] 04-07-2023 05:05-0400 Hourly Rounding Jordan Yuan [facility] 04-07-2023 05:05-0400 Promise to Return Jordan Yuan [facility] 04-06-2023 22:20-0400 Blood Pressure Location Jordan Yuan [facility] 04-06-2023 22:20-0400 Body temperature 98.24 [degF] Jordan Yuan [facility] 04-06-2023 22:20-0400 Heart rate 74 /min Jordan Yuan [facility] 04-06-2023 22:20-0400 Mean blood pressure 78 mm[Hg] Jordan Yuan [facility] 04-06-2023 22:20-0400 Respiratory rate 16 /min Jordan Yuan [facility] 04-06-2023 22:20-0400 SaO2% (BldA) [Mass fraction] 93 % Jordan Yuan [facility] 04-06-2023 20:10-0400 Heart rate 65 /min Jordan Yuan [facility] 04-06-2023 20:01-0400 Body temperature 97.34 [degF] Jordan Yuan [facility] 04-06-2023 20:00-0400 Mean blood pressure 86 mm[Hg] Jordan Yuan [facility] 04-06-2023 16:17-0400 Mean blood pressure 97 mm[Hg] Jordan Yuan [facility] 04-06-2023 16:16-0400 Body temperature 97.52 [degF] Jordan Yuan [facility] 04-06-2023 13:49-0400 Mean blood pressure 88 mm[Hg] Jordan Yuan [facility] 04-06-2023 12:45-0400 Respiratory rate 13 /min Jordan Yuan [facility] 04-06-2023 12:35-0400 Respiratory rate 10 /min Jordan Yuan [facility] 04-06-2023 12:20-0400 Respiratory rate 17 /min Jordan Yuan [facility] 04-06-2023 11:37-0400 Body temperature 96.98 [degF] Jordan Yuan [facility] 04-06-2023 06:39-0400 Heart rate 68 /min Jordan Yuan [facility] 03-24-2023 14:52-0400 Diastolic blood pressure 76 mm[Hg] Jordan Yuan [facility] 03-24-2023 14:52-0400 Heart rate 67 /min Jordan Yuan [facility] 03-24-2023 14:52-0400 Mean blood pressure 99 mm[Hg] Jordan Yuan [facility] 03-24-2023 14:52-0400 Systolic blood pressure 144 mm[Hg] Jordan Yuan [facility] 03-24-2023 14:52-0400 Heart rate 68 /min Jordan MIT CSHub [facility] 03-24-2023 14:52-0400 SaO2% (BldA) [Mass fraction] 99 % Jordan Yuan [facility] 03-24-2023 14:52-0400 Diastolic blood pressure 75 mm[Hg] Jordan Brown [facility] 03-24-2023 14:52-0400 Mean blood pressure 93 mm[Hg] Jordan MIT CSHub [facility] 03-24-2023 14:52-0400 Systolic blood pressure 128 mm[Hg] Jordan Yuan [facility] 03-24-2023 14:51-0400 Respiratory rate 16 /min Jordan Yuan [facility] 01-10-2023 15:00-0400 Body height 166.37 cm John Ball Other [facility] Other 01-10-2023 15:00-0400 Body mass index (BMI) [Ratio] 27.04 kg/m2 John Ball Other [employer] Other 01-10-2023 15:00-0400 Body weight 74.84 kg John Ball Other [facility] Other 01-10-2023 15:00-0400 Diastolic blood pressure 86 mm[Hg] John Ball Other [facility] Other 01-10-2023 15:00-0400 Respiratory rate 12 /min John Ball Other [facility] Other 01-10-2023 15:00-0400 Systolic blood pressure 124 mm[Hg] John Ball Other [facility] Other 12-09-2022 09:00-0400 Body height 166.37 cm John Ball Other [employer] Other 12-09-2022 09:00-0400 Body mass index (BMI) [Ratio] 27.33 kg/m2 John Ball Other [facility] Other 12-09-2022 09:00-0400 Body weight 75.66 kg John Ball Other [facility] Other 12-09-2022 09:00-0400 Diastolic blood pressure 71 mm[Hg] John Ball Other [facility] Other 12-09-2022 09:00-0400 Respiratory rate 12 /min John Ball Other [facility] Other 12-09-2022 09:00-0400 Systolic blood pressure 111 mm[Hg] John Ball Other [facility] Other 11-09-2022 15:00-0400 Body height 166.37 cm John Ball Other [facility] Other 11-09-2022 15:00-0400 Body mass index (BMI) [Ratio] 27.36 kg/m2 John Ball Other [facility] Other 11-09-2022 15:00-0400 Body weight 75.75 kg John Ball Other [facility] Other 11-09-2022 15:00-0400 Diastolic blood pressure 80 mm[Hg] John Ball Other [facility] Other 11-09-2022 15:00-0400 Respiratory rate 12 /min John Ball Other [facility] Other 11-09-2022 15:00-0400 Systolic blood pressure 135 mm[Hg] John Ball Other [facility] Other 07-26-2022 16:30-0500 Body height 166.37 cm John Ball Other [facility] Other 07-26-2022 16:30-0500 Body mass index (BMI) [Ratio] 26.28 kg/m2 John Ball Other [facility] Other 07-26-2022 16:30-0500 Body weight 72.76 kg John Ball Other [facility] Other 07-26-2022 16:30-0500 Diastolic blood pressure 78 mm[Hg] John Ashby Other [facility] Other 07-26-2022 16:30-0500 Respiratory rate 12 /min John Ball Other [facility] Other 07-26-2022 16:30-0500 Systolic blood pressure 122 mm[Hg] John Ashby Other [employer] Other Encounters Encounter Date Encounter Type Care Provider Facility Start: 10-08-2024 End: 10-08-2024 ambulatory Nicki Plunkett MD Facility:[facility] Start: 10-04-2024 End: 10-04-2024 Patient encounter procedure Jordan Yuan DO Work Phone: [facility] Comment on above: Complete tear of lef t rotator cuff, unspecified whether traumatic (Primary Dx) Start: 10-04-2024 End: 10-04-2024 ambulatory JORDAN YUAN Not Available Start: 10-04-2024 End: 10-04-2024 Bamboo flowsheet Jordan Yuan DO Work Phone: [facility] Start: 10-04-2024 End: 10-04-2024 Bamboo flowsheet Jordan Yuan DO Work Phone: [facility] Start: 09-28-2024 End: 09-29-2024 ambulatory Jordan Yuan Facility:[facility] Start: 09-25-2024 End: 09-25-2024 ambulatory [facility] Work Phone: Start: 09-25-2024 End: 09-25-2024 Patient encounter procedure [facility] Work Phone: Start: 09-18-2024 End: 09-18-2024 Patient encounter procedure Jordan Sue Kwabena DO Work Phone: [facility] Comment on above: S/P arthroscopy of l eft shoulder (Primary Dx) Start: 09-18-2024 End: 09-18-2024 ambulatory JORDAN YUAN Not Available Start: 08-31-2024 Non-patient / Non-visit [facility] Work Phone: Start: 08-29-2024 End: 08-29-2024 ambulatory [facility] Work Phone: Start: 08-29-2024 End: 08-29-2024 Encounter for general adult medical examination without abnormal findings [facility] Start: 08-29-2024 End: 08-29-2024 Patient encounter procedure [facility] Work Phone: Start: 08-27-2024 Patient encounter status [facility] Start: 07-17-2024 End: 07-17-2024 Patient encounter [...] [facility] Start: 06-21-2024 Non-patient / Non-visit [facility] Work Phone: Start: 06-14-2024 End: 06-14-2024 Patient encounter procedure [facility] Work Phone: Start: 06-05-2024 End: 06-05-2024 ambulatory JORDAN YUAN Not Available Start: 06-05-2024 End: 06-05-2024 Patient encounter procedure Jordan A Kwabena DO Work Phone: [facility] Comment on above: Status post shoulder surgery (Primary Dx) Start: 05-09-2024 End: 05-09-2024 ambulatory [facility] Work Phone: Start: 05-09-2024 End: 05-09-2024 Patient encounter procedure [facility] Work Phone: Start: 05-08-2024 End: 05-08-2024 Patient encounter procedure Jordan A Kwabena DO Work Phone: [facility] Comment on above: Status post shoulder surgery (Primary Dx) Start: 05-08-2024 End: 05-08-2024 ambulatory JORDAN A KWABENA Not Available Start: 05-08-2024 End: 05-08-2024 ambulatory JORDAN Sue KWABENA Not Available Start: 04-27-2024 End: 04-27-2024 Admission to same day surgery center [facility] Start: 04-27-2024 End: 04-27-2024 ambulatory DO Jordan Yuan Facility:[facility] Start: 04-17-2024 End: 04-17-2024 ambulatory [facility] Work Phone: Start: 04-17-2024 End: 04-17-2024 Patient encounter procedure [facility] Work Phone: Start: 04-10-2024 End: 04-10-2024 ambulatory [facility] Work Phone: Start: 04-10-2024 End: 04-10-2024 Patient encounter procedure [facility] Work Phone: Start: 03-30-2024 End: 03-30-2024 ambulatory [facility] Work Phone: Start: 03-30-2024 End: 03-30-2024 Patient encounter procedure [facility] Work Phone: Start: 03-27-2024 End: 03-27-2024 ambulatory [facility] Work Phone: Start: 03-27-2024 End: 03-27-2024 Patient encounter procedure [facility] Work Phone: Start: 03-25-2024 Patient encounter status [facility] Start: 03-19-2024 End: 03-19-2024 ambulatory Jordan Yuan Facility:[facility] Start: 03-19-2024 End: 03-19-2024 Patient encounter procedure [facility] Yuan [facility] Start: 02-29-2024 End: 02-29-2024 ambulatory [facility] Work Phone: Start: 02-29-2024 End: 02-29-2024 Patient encounter procedure [facility] Work Phone: Start: 02-23-2024 End: 02-23-2024 ambulatory JORDAN YUAN Not Available Start: 02-14-2024 Non-patient / Non-visit [facility] Work Phone: Start: 02-02-2024 Non-patient / Non-visit [facility] Work Phone: Start: 12-28-2023 End: 12-28-2023 ambulatory [facility] Work Phone: Start: 12-28-2023 End: 12-28-2023 Patient encounter procedure [facility] Work Phone: Start: 11-15-2023 End: 11-15-2023 Patient encounter procedure Jordan Yuan DO Work Phone: [facility] Comment on above: Status post shoulder surgery (Primary Dx) Start: 11-15-2023 End: 11-15-2023 ambulatory JORDAN YUAN Not Available Start: 11-04-2023 End: 11-04-2023 ambulatory [facility] Start: 09-28-2023 End: 09-28-2023 ambulatory [facility] Work Phone: Start: 09-28-2023 End: 09-28-2023 Patient encounter procedure [facility] Work Phone: Start: 09-06-2023 End: 09-06-2023 ambulatory Jordan Yuan Facility:[facility] Start: 09-06-2023 End: 09-06-2023 Patient encounter procedure Jordan [facility] Start: 09-05-2023 Non-patient / Non-visit [facility] Work Phone: Start: 09-05-2023 End: 09-05-2023 ambulatory John Ashby Other [facility] Other Start: 09-05-2023 Telephone encounter John Ashby [facility] Start: 09-02-2023 Non-patient / Non-visit [facility] Work Phone: Start: 08-30-2023 Non-patient / Non-visit [facility] Work Phone: Start: 08-18-2023 End: 08-18-2023 Patient encounter procedure Jordan Yuan DO Work Phone: [facility] Comment on above: Right shoulder pain, unspecified chronicity (Primary Dx) Start: 08-18-2023 Chart abstracting Jordan do DO Work Phone: [facility] Start: 08-17-2023 End: 08-17-2023 ambulatory John Ashby Other [facility] Other Start: 08-17-2023 Encounter for genera l adult medical examination without abnormal findings John Ashby [facility] Start: 08-17-2023 Periodic preventive med est patient 40-64yrs John Ashby [facility] Start: 06-28-2023 End: 06-28-2023 ambulatory John Ashby Other [facility] Other Start: 06-28-2023 Office outpatient vi sit 15 minutes John Ashby [facility] Start: 05-06-2023 End: 05-06-2023 ambulatory John Ashby Other [facility] Other Start: 05-06-2023 Telephone encounter John SIMON [facility] Start: 04-26-2023 End: 04-26-2023 ambulatory John Ashby Other [facility] Other Start: 04-26-2023 Telephone encounter John SIMON [facility] Start: 04-06-2023 End: 04-07-2023 Admission to same day surgery center Jordan Yuan [facility] Start: 04-06-2023 End: 04-07-2023 ambulatory Jordan Yuan Facility:[facility] Start: 03-31-2023 End: 03-31-2023 ambulatory John Ashby Other [facility] Other Start: 03-31-2023 Telephone encounter John SIMON [facility] Start: 03-26-2023 End: 03-26-2023 ambulatory John Ashby Other [facility] Other Start: 03-26-2023 Telephone encounter John SIMON [facility] Start: 03-24-2023 End: 03-24-2023 ambulatory Jordan Yuan Facility:[facility] Start: 03-24-2023 End: 03-24-2023 Patient encounter procedure Jordan Yuan [facility] Start: 03-21-2023 End: 03-21-2023 ambulatory John Ball Other [facility] Other Start: 03-21-2023 Telephone encounter John Ball [facility] Start: 01-12-2023 End: 01-12-2023 ambulatory John Ball Other [facility] Other Start: 01-12-2023 Telephone encounter John Ball [facility] Start: 01-10-2023 End: 01-10-2023 ambulatory John Ball Other [facility] Other Start: 01-10-2023 Office outpatient vi sit 15 minutes John Ball [facility] Start: 12-14-2022 End: 12-14-2022 ambulatory John Ball Other [facility] Other Start: 12-14-2022 Telephone encounter John Ball [facility] Start: 12-10-2022 End: 12-10-2022 ambulatory Jonh Ball Other [facility] Other Start: 12-10-2022 Telephone encounter John Ball [facility] Start: 12-09-2022 End: 12-09-2022 ambulatory John Ball Other [facility] Other Start: 12-09-2022 Office outpatient vi sit 15 minutes John Ball [facility] Start: 11-09-2022 End: 11-09-2022 ambulatory John Ball Other [facility] Other Start: 11-09-2022 Office outpatient vi sit 15 minutes John Ball [facility] Start: 10-13-2022 ambulatory NARENDRANATH LAKSHMIPATHY . Facility:[facility] Start: 10-07-2022 End: 10-08-2022 ambulatory NARENDRANATH LAKSHMIPATHY . Facility:[facility] Start: 09-22-2022 End: 09-22-2022 ambulatory John Ball Other [facility] Other Start: 09-22-2022 Telephone encounter John Ashby [facility] Start: 09-16-2022 End: 09-17-[address] JOHN ASHBY Facility:[facility] Start: 08-14-2022 End: 08-14-2022 ambulatory John Ashby Other [facility] Other Start: 08-14-2022 Telephone encounter John Ashby [facility] Start: 07-26-2022 End: 07-26-2022 ambulatory John Ashby Other [facility] Other Start: 07-26-2022 Office outpatient vi sit 15 minutes John Ashby [facility] Start: 07-22-2022 Annual wellness visit John Ashby Other [facility] Other Start: 07-22-2022 Patient encounter procedure John Ashby Other [facility] Other Start: 07-09-2022 End: 07-10-[address] JOHN ASHBY Facility:[facility] Start: 06-21-2022 Adult health examination John Ashby Other [facility] Other Start: 06-21-2022 Gynecological examination normal John Ashby Other [facility] Other Start: 2022 End: 06-09-[address] JOHN ASHBY Facility:[facility] Start: 06-01-2022 End: 06-01-[address] JOHN ASHBY Facility:[facility] Start: 05-24-2022 Encounter for genera l adult medical examination without abnormal findings DR JOHN ASHBY [facility] Start: 05-20-2022 End: 05-21-[address] [...] Start: 03-12-2020 End: 03-13-2020 Patient encounter procedure MARYURIELIDIA ALEXANDER Facility:[facility] Start: 03-05-2020 End: 03-20-2020 Patient encounter procedure MARYURI EBRASINAN Facility:[facility] Start: 10-20-2017 End: 10-21-2017 Ambulatory [facility] Start: 10-13-2017 End: 10-18-2017 [facility] Procedures Date Procedure Procedure Detail Performing Clinician [...] BASIM Start: 10-13-2017 MRSA SCREENING CULTURE ONLY ABRRY BASIM Start: 10-13-2017 EKG 12-LEAD BARRY BASIM Start: 06-24-2014 General examination of patient John Ashby Other Amputation of finger , except thumb Jordan Yuan Cervical laminectomy Jordan cates Excision of lumbar intervertebral disc Jordan Yuan ft (qualifier value) Jordanalma cates Open reduction of fr acture with internal fixation Jordan Yuan Removal of lung pneumonectomy Jordan Yuan Screening for malign ant neoplasm of breast John Ashby Other Screening mammography Herbert Ashby Other Plan of Treatment Date Care Activity Detail Author Start: 03-11-2025 Influenza vaccination Influenz a Vaccine (Season Ended) [facility] Start: 10-04-2024 End: 10-04-2024 Patient encounter procedure 10/04/2024 2:45 PM EDT Office Visit [facility] [address] [place] [phone] Jordan Yuan, DO [address] [place] [address] Arrived NOMNatalie CHO Comment on above: Arrived Start: 09-18-2024 End: 09-18-2024 Patient encounter procedure 09/18/2024 10:00 AM EDT Office Visit [facility] [address] [place] [id number] Jordan Yuan, DO [address] [place] [address] [facility] Start: 07-17-2024 End: 07-17-2024 Patient encounter procedure 07/17/2024 2:45 PM EST Office Visit [facility] [address] [place] [address] Jordan Yuan, [address] [place] [address] Arrived [facility] Comment on above: Arrived Start: 2024 Screening for malign ant neoplasm of colon [facility] Start: 06-05-2024 End: 06-05-2024 Patient encounter procedure 06/05/2024 9:15 AM EST Office Visit [facility] [address] [place] [address] Jordan Yuan, [address] [place] [address] [facility] Start: 05-08-2024 End: 05-08-2024 Patient encounter procedure 05/08/2024 10:45 AM EDT Office Visit [facility] [address] [place] [address] Jordan Yuan, [address] [place] [address] [facility] Start: 03-11-2024 Influenza vaccination Influenza Vacc ine (#1) [facility] Start: 10-04-2023 End: 10-04-2023 Patient encounter procedure 10/04/2023 3:45 PM EDT Office Visit [facility] [address] [phone] Jordan Yuan DO [address] [place] [address] [facility] Start: 08-18-2023 End: 08-18-2023 Patient encounter procedure 08/18/2023 3:45 PM EST Office Visit [facility] [address] [place] [id number] Jordan Yuan DO [address] [place] [address] [facility] Start: 08-18-2023 End: 08-18-2024 C reactive protein [Mass/volume] in Serum or Plasma C-reactive protein Lab Routine Right shoulder pain, unspecified chronicity Expected: 08/18/2023 (Approximate), Expires: 08/18/2024 [facility] Comment on above: Expected: 08/18/2023 (Approximate), Expires: 08/18/2024 Start: 08-18-2023 End: 08-18-2024 CBC W Auto Differential panel - Blood CBC auto differential Lab Routine Right shoulder pain, unspecified chronicity Expected: 08/18/2023 (Approximate), Expires: 08/18/2024 [facility] Work Phone: Comment on above: Expected: 08/18/2023 (Approximate), Expires: 08/18/2024 Start: 08-18-2023 End: 08-18-2024 Erythrocyte sedimentation rate Sedimentation rate, automated Lab Routine Right shoulder pain, unspecified chronicity Expected: 08/18/2023 (Approximate), Expires: 08/18/2024 [facility] Comment on above: Expected: 08/18/2023 (Approximate), Expires: 08/18/2024 Start: 08-18-2023 End: 08-18-2024 Interleukin-6 Interleukin-6 Lab Routine Right shoulder pain, unspecified chronicity Expected: 08/18/2023 (Approximate), Expires: 08/18/2024 [facility] Comment on above: Expected: 08/18/2023 (Approximate), Expires: 08/18/2024 Start: 2000 Screening for malign ant neoplasm of breast Mammogram [facility] Start: 1990 Screening for malign ant neoplasm of cervix [facility] Start: 1981 Screening for malign ant neoplasm of cervix Pap Smear [facility] Start: 1960 Screening for malign ant neoplasm of colon [facility] Comprehensive metabo lic 2000 panel - Serum or Plasma [facility] Renal function 1999 panel - Serum or Plasma [facility] US [facility] Immunizations Immunization Date Immunization Notes Care Provider Angélica kwon 05-10-2019 influenza virus vaccine, unspecified formulation Jordan Yuan DO Work Phone: [facility] 03-22-2012 tetanus and diphther ia toxoids, adsorbed, preservative free, for adult use (5 Lf of tetanus toxoid and 2 Lf of diphtheria toxoid) John Symone Other [facility] Payers Date Payer Category Payer Medicare (Managed Care) [employer] [id number] 2024 Medicare [id number] 2024 Private Health Insurance 2021 [facility] er [id number] .[id number] 2021 Unknown [id number]. 1.13.693.2 .7.3.291271.315 2021 Blue Cross Blue Shield [id number] 2.16.840.1.451196.19 2020 Medicare 1.2.840.990971. 1.13.693.2 .7.3.647681.315 2017 Unknown [id number] 1960 Unknown [id number] 2.16.840.1.148710.3.579.2 .647 1960 Unknown [id number] 2.16.840.1.882767.3.579.2 .647 1960 Unknown [id number] 2.16.840.1.555722.3.579.2 .593 1960 Unknown [id number] 2.16.840.1.732886.3.579.2 .593 1960 Unknown [id number] 2.16.840.1.986291.3.579.2 .593 1960 Unknown [id number] 2.16.840.1.010978.3.579.2 .593 1960 Unknown [id number] 2.16.840.1.531669.3.579.2 .593 1960 Unknown [id number] 2.16.840.1.155400.3.579.2 .593 1960 Unknown [id number] 2.16.840.1.148034.3.579.2 .593 1960 Unknown [id number] 2.16.840.1.409314.3.579.2 .593 1960 Unknown [id number] 2.16.840.1.729153.3.579.2 .593 1960 Unknown [id number] 2.16.840.1.178101.3.579.2 .593 1960 Unknown [id number] 2.16.840.1.346244.3.579.2 .593 1960 Unknown [id number] 2.16.840.1.862097.3.579.2 .593 1960 Unknown [id number] 2.16.840.1.298897.3.579.2 .593 1960 Unknown [id number] 2.16.840.1.441183.3.579.2 .593 1960 Unknown [id number] 2.16.840.1.574136.3.579.2 .593 1960 Unknown [id number] 2.16.840.1.529525.3.579.2 .593 1960 Unknown [id number] 2.16.840.1.508699.3.579.2 .593 1960 Unknown [id number] 2.16.840.1.130454.3.579.2 .727 1960 Unknown [id number] 2.16.840.1.128175.3.579.2 .727 1960 Unknown [id number] 2.16.840.1.674642.3.579.2 .727 1960 Unknown [id number] 2.16.840.1.131035.3.579.2 .727 1960 Unknown [id number] 2.16.840.1.277362.3.579.2 .727 1960 Unknown [id number] 2.16.840.1.927317.3.579.2 .727 1960 Unknown [id number] 2.16.840.1.006466.3.579.2 .727 1960 Unknown [id number] 2.16.840.1.265089.3.579.2 .1259 1960 Unknown [id number] 2.16.840.1.901974.3.579.2 .1259 1960 Unknown [id number] 2.16.840.1.927734.3.579.2 .1258 1960 Unknown [id number] 2.16.840.1.442946.3.579.2 .1258 1960 Unknown [id number] 2.16.840.1.391761.3.579.2 .1258 1960 Unknown [id number] 2.16.840.1.320128.3.579.2 .1258 1960 Unknown [id number] 2.16.840.1.203377.3.579.2 .1258 1960 Unknown [id number] 2.16.840.1.323466.3.579.2 .1258 1960 Unknown [id number] 2.16.840.1.974836.3.579.2 .1258 1960 Unknown [id number] 2.16.840.1.140637.3.579.2 .1258 1960 Unknown [id number] 2.16.840.1.636988.3.579.2 .1258 1960 Unknown [id number] 2.16.840.1.718677.3.579.2 .196 1959 Medicare [id number] 1959 Self-pay 1959 Unknown [id number] 1959 Unknown [id number] Private Health Insurance [facility] [id number] Social History Date Type Detail Facility Unknown if ever smoked [facility] Other Start: 07-21-2023 End: 10-04-2024 Sex Assigned At [facility] Tobacco smoking status No Smokin g Status Entered [facility] Start: 05-24-2023 End: 07-17-2024 Tobacco smoking status [facility] Ex-smoker [facility] Start: 04-10-1981 End: 07-11-1990 History of tobacco use Current smoker [facility] Start: 04-10-1981 End: 07-11-1990 History of tobacco use Cigarette Smoker [facility] Start: 05-24-2023 End: 07-17-2024 Tobacco use and exposure Smokeless tobacco non-user [facility] Start: 07-21-2023 End: 10-04-2024 Alcohol intake Current drinker of alcohol (finding) [facility] Start: 07-21-2023 End: 10-04-2024 History of Social function [facility] How [...] Sex Assigned At Not on file [facility] Start: 1960 Sex Assigned At Female F [facility] Average Number of Drinks Not on file [facility] Start: 08-29-2024 End: 09-25-2024 Sex Female (finding) [facility] Medical Equipment Procedure Code Equipment Code Equipment Origin al Text Equipment Identifier Dates SHOULDER TOTAL ARTHROPLASTY Orlando Yuan DOson A 04/06/23 Unknown Shoulder R FDA Start: 04-06-2023 SHOULDER TOTAL ARTHROPLASTY Kwabena CAMPOS Jordan A 04/06/23 Unknown Shoulder R FDA Start: 04-06-2023 SHOULDER TOTAL ARTHROPLASTY Kwabena CAMPOS Jordan A 04/06/23 Unknown Shoulder R FDA Start: 04-06-2023 SHOULDER TOTAL ARTHROPLASTY Kwabena CAMPOS Jordan A 04/06/23 Unknown Shoulder R FDA Start: 04-06-2023 SHOULDER TOTAL ARTHROPLASTY Kwabena DO Jordan A 04/06/23 Unknown Shoulder R FDA Start: 04-06-2023 SHOULDER TOTAL ARTHROPLASTY Kwabena CAMPOS Jordan A 04/06/23 Unknown Shoulder R FDA Start: 04-06-2023 SHOULDER TOTAL ARTHROPLASTY Kwabena DO Jordan A 04/06/23 Unknown Shoulder R FDA Start: 04-06-2023 SHOULDER TOTAL ARTHROPLASTY Kwabena DO Jordan A 04/06/23 Unknown Shoulder R FDA Start: 04-06-2023 SHOULDER TOTAL ARTHROPLASTY Kwabena CAMPOS Jordan A 04/06/23 Unknown Shoulder R [...] COPY W/ POSSIBLE REPAIR Jordan Yuan DO 04/27/24 Non Biological Shoulder L {[id number]{ [id number] FDA Start: 04-27-2024 Functional Status Date Assessment Result Facility 03-19-2024 Functional Status No [facility] 03-24-2023 Functional Status No [facility] Clinical Notes 05-29-2018 to 10-04-2024 Jordan Yuan DO - 10/04/2024 2:45 PM EDTJordan Yuan DO - 09/18/2024 10:00 AM EDT Note Date & Type Note Facility 10-04-2024 History of Presen t illness Narrative Images from the original note were not included. @ENCDATE@ Radha J Dyan is a 64 y.o. female who presents for Follow-up of the Left Shoulder (MRI [facility] 09/28/24) HPI: History of Present Illness The patient is a 64-year-old female who presents today for follow-up on her left shoulder. She has a history of a rotator cuff repair on 04/27/2024. MRI of the shoulder was completed on 09/28/2024. is present. She reports no significant improvement in her left shoulder mobility, with persistent weakness and severe pain. She has been undergoing rehabilitation, although recent sessions have been less intensive pending the results of her MRI. She expresses a preference for an overnight hospital stay should further surgical intervention be required. SUBJECTIVE: MEDICATIONS: Current Outpatient Medications Medication Instructions acetaminophen (TYLENOL EXTRA STRENGTH) 500 mg, Oral, Every 4 hours PRN buPROPion XL (Wellbutrin XL) 300 MG 24 hr tablet citalopram (CeleXA) 10 MG tablet HYDROcodone-acetaminophen (Arcadia) 5-325 MG tablet leflunomide (Arava) 10 MG [...] No weakness with ER, negative belly press. HEENT The skull is normocephalic. There is no sign of trauma to the head or neck. Hearing is intact for conversational tones. Eye exam reveals conjugate gaze adequate for walking and transfers. CARDIAC The heart is regular rate and rhythm. RESPIRATORY Chest excursion is symmetric and unlabored with lungs clear. ABDOMEN Soft and non-distended. OSTEOPATHIC AND STRUCTURAL EXAM There is no gross evidence of clinically significant kyphosis, or lordosis, or significant leg length discrepancy in a sitting and standing position. Ortho Exam Results Imaging MRI of the left shoulder [place] 09/28/2024 report and images reviewed. ASSESSMENT AND PLAN: I reviewed the history, physical exam, diagnostic studies, and diagnosis with the patient. Assessment & Plan 1. Recurrent massive rotator cuff tear, left shoulder The MRI results indicate a significant tear in the rotator cuff, coupled with suboptimal tissue quality and atrophy. The previously repaired tendon has not healed. Given the extent of the tear and the poor tissue quality, a repeat repair is not deemed beneficial. The potential for shoulder replacement was discussed, including the associated risks and benefits. She was advised to continue with her rehabilitation exercises if they provide some relief from pain and help maintain mobility and function. She was also informed that she could discontinue these exercises if they do not yield any improvement. She was encouraged to consider the option of shoulder replacement and communicate her decision at her convenience. We would proceed with left reverse total shoulder arthroplasty. I explained the difference between anatomic shoulder arthroplasty and reverse shoulder arthroplasty and utilized the saw bones model and/or illustration during the discussion. I provided the patient information from the [employer] web site about this procedure. We will utilize the [employer] shoulder arthroplasty platform and obtain a CT scan of the shoulder to assist with preoperative planning and intraoperative instrumentation. Anticipate greater than 23 hour but less than 72 hour stay in the hospital after surgery. We will utilize tranexamic acid preoperative and intraoperatively to help minimize blood loss. Surgery will be performed under a general anesthetic as well as a regional anesthetic nerve block. I am requesting the nerve block to assist with intraoperative and postoperative pain control. I reviewed the risk, benefits, complications, alternatives, and reasonable expectations. These risks include, but are not limited to, the risks of receiving an anesthetic, the risk of infection, the risk of neurovascular injury that could result in permanent disability, the risk of deep vein thrombosis that could result in potentially fatal pulmonary embolism. Any potential complication could require further surgical intervention. The patient acknowledges these risks and electively signed the consent form. At no time were any guarantees implied or stated. We will schedule the procedure at a mutually convenient time. Surgery will be performed under a general anesthetic as well as a regional anesthetic nerve block. I am requesting the nerve block to assist with intraoperative and postoperative pain control. A total of 30 to 39 minutes was spent on this patient encounter which included chart review, check in, nurse triage, history taking, physical examination, diagnostic study review, patient counseling and discussion, entering information into the patient's medical record, and coordinating patient care. There are no diagnoses linked to this encounter. Jordan Yuan D.O. Attestation This note was created using voice recognition through [email or web address] artificial Benchling. documented in this encounter [facility] 09-18-2024 History of Presen t illness Narrative Images from the original note were not included. @LORAINE@ Radha Levy Zaidi is a 64 y.o. [...] tablet citalopram (CeleXA) 10 MG tablet HYDROcodone-acetaminophen (Arcadia) 5-325 MG tablet leflunomide (Arava) 10 MG [...] Dr Estrella SHOULDER SURGERY Left 04/27/2024 NILA ARCLuisa SPINAL FUSION 2000 TOTAL SHOULDER ARTHROPLASTY Right [...] note was created using voice recognition through [email or web address] artificial intelligence. documented in this encounter [facility] 08-29-2024 Evaluation note Diagnosis Onset Date Resolution Chronic kidney disease acute Fe bruary 2024 3:15pm Essential hypertension acute Fe bruary 2024 3:15pm Heart failure with improved ejection fraction (HFimpEF) acute August 3:15pm Nonischemic cardiomyopathy acute August 29, 2 025 3:15pm Pernicious anemia acute uar y 2024 3:15pm PSVT (paroxysmal supraventricular tachycardia) acute August 29, 2 025 3:15pm Screening mammogram for breast cancer acute August 29, 025 3:15pm Wellness examination acute uary 2024 3:15pm Encounter for screening for malignant neoplasm of colon noneactive August 29, 2 025 3:15pm Anemia of renal disease acute M arch 2024 10:33am Chronic kidney disease, stage 3b acute September 25, 2024 10:33am Hypertensive nephropathy acute September 25, 2024 10:33am Rheumatoid arthritis acute Adonis h 2024 10:33am [facility] Work Phone: 1(431) 613-843701-07-2025 History of Present illness Narrative* Jordan Yuan DO - 07/17/2024 2:45 PM EST Images from the original note were not included. @ENCDATE@ [facility] Levy Zaidi is a 64 y.o. female [...] tablet citalopram (CeleXA) 10 MG tablet HYDROcodone-acetaminophen (Arcadia) 5-325 MG tablet leflunomide (Arava) 10 MG [...] note was created using voice recognition through [employer]. documented in this encounterMid Missouri Mental Health [id number] Evaluation note* Diagnosis Onset Date Resolution Status Admit Date Pernicious anemia acute Decembe r 2023 3:25pm Chronic kidney disease acute Fe bruary 2024 3:15pm Elevated transaminase level acute August 29, 2024 3:15pm Essential hypertension acute Fe bruary 2024 3:15pm Heart failure with improved ejection fraction (HFimpEF) acute uary 2024 3:15pm Nonischemic cardiomyopathy acute August 29, 2024 3:15pm Pernicious anemia acute uar y 2024 3:15pm PSVT (paroxysmal supraventricular tachycardia) acute Fe bruary 2024 3:15pm Screening mammogram for [facility] cancer acute August 29, 2 025 3:15pm Wellness examination acute 2024 3:15pm [facility] Work Phone: 1(827) 716-623711-26-2024 History of Present illness Narrative* Jordan Yuan DO - 06/05/2024 9:15 AM EST Images from the original note were not included. @LORAINE@ Radha Levy Zaidi is a 63 y.o. [...] tablet citalopram (CeleXA) 10 MG tablet HYDROcodone-acetaminophen (Arcadia) 5-325 MG tablet TAKE 1 TABLET BY [...] with debridement Patient will start PT at [place]. [place] protocol for small to medium cuff tears will be utilized. Follow up in 6 weeks. Continue to ice the shoulder and allow sufficient time for rest during the week. There are no diagnoses linked to this encounter. Jordan Yuan D.O. Attestation This note was created using voice recognition through [email or web address] artificial Benchling. * ROSEMARY Hernandez - 06/05/2024 9:15 AM ESTAssociated Order(s): L Inj/Asp: L glenohumeral Post-Procedure Diagnose(s): Status post shoulder surgery L Inj/Asp: L glenohumeral on 06/05/2024 2:26 PM Indications: pain Details: 25 G needle, ultrasound-guided Medications: 2 mL betamethasone acetate-betamethasone sodium phosphate 6 (3-3) MG/ML Consent was given by the patient. documented in this encounterMid Missouri Mental Health [id number] History of Present illness Narrative* Jordan Yuan DO - 05/08/2024 10:45 AM EDT Images from the original note were not included. @ENCDATE@ [facility] Levy Zaidi is a 63 y.o. female [...] tablet citalopram (CeleXA) 10 MG tablet HYDROcodone-acetaminophen (Arcadia) 5-325 MG tablet TAKE 1 TABLET BY MOUTH 3 TIMES A DAY NEEDED FOR PAIN*MUS LAST 30 DAYS HYDROcodone-acetaminophen (Arcadia) 5-325 MG tablet 1-2 tablets, Oral, Every [...] for her medication will be sent to [facility] in [place]. Follow-up Return in 4 weeks for follow up. PT will be initiated at that time. Diagnoses and all orders for this visit: Status post shoulder surgery - XR shoulder 2+ views left - HYDROcodone-acetaminophen (Arcadia) 5-325 MG tablet; Take 1-2 tablets by mouth every 4 (four) hoursif needed (pain) for up to 7 days Jordan Yuan D.O. Attestation This note was created using voice recognition through [employer]. documented in this encounterMid Missouri Mental Health [id number] Evaluation + Plan note Extracted from: Title:ANES Post-operative Note---General Author: Wm Bajwa MD. 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 Family History: Primary malignant neoplasm of prostate Father Acute myocardial infarction Mother Procedure history: Total shoulder replacement (38403409) on 04/06/2023 at 62 Years. Cervical laminectomy (8882167272). Amputation of finger (768089563). Removal of lung, Partial (27251). Open reduction and internal fixation of fracture Leg (908174158). Foot surgery (0346567146). Lumbar discectomy (827154082). Social History Social & Psychosocial Habits Alcohol [...] Signs (last 24 hrs) Last Charted Temp Ekncwirs60.5 DegC (APR 27 06:22) Heart Rate Qnjrqhuye49 bpm (APR 27:) WAN635 mmHg (APR 27:) DBP70 mmHg (APR 27:) Measurements from flowsheet : Measurements 04/27/2024 6:22 [...] Auto 55.1 % Lymph Auto 20.4 % [place] Auto 19.5 % HI Eos Auto 3.7 % Basophil Auto 1.3 % Neutro Absolute 2.4 E9/L Lymph Absolute 0.9 E9/L LOW [place] Absolute 0.8 E9/L Eos Absolute 0.2 E9/L Basophil Absolute 0.1 E9/L . Plan [place] [employer] (ASA) physical status classification: Class III. Anesthetic Preoperative Plan: Anesthesia General. Regional Interscalene block. Addendum by Garett CHAUHAN, mW Mistry on April 27, 2024 8:55 EDT [place] [facility] 10-18-2024 Hospital Discharge instructions Patient Education 04/27/2024 10:08:37 Shoulder Cryocuff Patient Instructions - FT (CUSTOM) 04/27/2024 10:08:34 Post Op Patient Instructions - FT (CUSTOM) 04/27/2024 07:48:25 Iris Yuan - After Your Shoulder Arthroscopy (Custom) [place], [place] [facility] AFTER YOUR SHOULDER ARTHROSCOPY [...] your appointment. Jordan Yuan, DO [facility] [address] [place] [id number] Reviewed: Follow Up Care 02/23/2024 15:25:37 With:Jordan Yuan Address: [address] [place] [address]- Business (1) When:05/08/2024 10:45:00 Comments:Call for any problems.Keep scheduled appointmentAppointment has already been scheduled [facility] 10-18-2024 NoteProgress Note-Physician Patient: RADHA ZAIDI Age: 63 years Sex: Female : 1960 Associated Diagnoses: None Author: Wm Bajwa MD Postoperative Information Postoperative disposition: Postoperative disposition: To PACU. Optimetrix number: Optimetrix number [id number]. Anesthetic utilized: General. Regional: Interscalene Block. Health [...] Discharge when meets criteria ( To home ).[facility] HealthComment on above:Result Comment: Electronically Signed By: Wm Bajwa MD\.br\Date and Time Signed: 04/27/24 10:30 EDT 04-27-2024 NotePatient Education - Text [place], [place] [facility] AFTER YOUR SHOULDER ARTHROSCOPY [...] your appointment. 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 Family History: Primary malignant neoplasm of prostate Father Acute myocardial infarction Mother Procedure history: Total shoulder replacement (63252590) on 04/06/2023 at 62 Years. Cervical laminectomy (1366932981). Amputation of finger (066966827). Removal of lung, Partial (30658). Open reduction and internal fixation of fracture Leg (420264771). Foot surgery (4040355167). Lumbar discectomy (602935055). Social History Social & Psychosocial H (more content not included)...[facility] HealthComment on above:Result Comment: Electronically Signed By: Garett CHAUHAN, Wm Mistry\.br\Date and Time Signed: 04/27/24 08:55 [id number] History of Present illness Narrative* Jordan Yuan, DO - 11/15/2023 3:45 PM EDT Images from the original note were not included. @ENCDATE@ [facility] Levy Zaidi is a 63 y.o. female [...] tablet citalopram (CeleXA) 10 MG tablet HYDROcodone-acetaminophen (Arcadia) 5-325 MG tablet TAKE 1 TABLET BY [...] Jordan Yuan D.O. Attestation documented in this encounterMid Missouri Mental Health [id number] NoteUT [facility] [facility] Subjective Radha Zaidi is a [...] In the past she was admitted to [facility] with pneumonia and empyema, underwent [...] mouth if needed., Disp: , Rfl: HYDROcodone-acetaminophen (Arcadia) 5-325 mg tablet, TAKE 1 TABLET BY [...] 152, HDL 74. 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 She points to the anterior aspect of the shoulder as the locationof her discomfort. SUBJECTIVE: MEDICATIONS: Current Outpatient Medications Medication Instructions aspirin 81 MG EC tablet 1 tablet, Oral, Daily buPROPion XL (Wellbutrin XL) 300 MG 24 hr tablet citalopram (CeleXA) 10 MG tablet HYDROcodone-acetaminophen (Arcadia) 5-325 MG tablet TAKE 1 TABLET BY [...] care. Jordan Yuan D.O. documented in this encounterMid Missouri Mental Health CenterLsxqqejnuy64-30-1294 Evaluation note* Encounter Date Diagnosis Assessment Notes [...] Symptoms tolerable, continue medical treatment f/u Rheumatology [facility] 12-19-2023 Evaluation note* Encounter Date Diagnosis [...] Jun, Immunosuppressed sta tus (ICD-10 - D84.9) [facility] 09-28-2023 Evaluation + Plan noteExtracted from: [...] Basic PRE Author:Hill Rai DO Date:04/06/23 Plan [place] [employer] (ASA) physical status classification: Class II. Anesthetic Preoperative Plan: Anesthesia General. Regional Interscalene block. [facility]09-28-2023 Hospital Discharge instructions Patient Education 04/07/2023 07:41:33 Iris Yuan - Shoulder Replacement (Custom) [place], [place] [facility] DISCHARGE INSTRUCTIONS: SHOULDER REPLACEMENT [...] persistent vomiting. Jordan Yuan DO [facility] [address] [place], [place] [id number] Reviewed: Follow Up Care 03/09/2023 13:56:15 With:Jordan Yuan Address: [address] [place] [id number] Business (1) When:04/19/2023 14:15:00 With:JOHN ASHBY Address: [facility] [place] [address] Business (1) When: Unknown [facility]09-28-2023 NotePatient: RADHA ZAIDI Age: 62 years [...] 15 mg, 1 tab(s), Oral, Daily, 0 Refill(s)[facility] HealthComment on above:Result Comment: Electronically Signed By: Jordan Yuan DO.br\Date and Time Signed: 04/07/23 07:42 [id number]:127 [facility]09-16-2023 Evaluation note* Encounter Date Diagnosis Assessment Notes Treatment Notes Treatment Clinical Notes Mar, Major depressive disorder, single episode, 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 Monitor BP while taking Adipex [facility] Other 03-30-2023 NoteCONSULTATION PROCEDURE DATE: 10/07/2022 PROCEDURE: [...] at least 80% reduction of pain symptoms.[facility] [id number] NoteCONSULTATION CONSULTATION DATE: 10/07/2022 ADDENDUM: On examination of the right shoulder, the patient did have a positive right sided full can test, a positive Neida's test, Apley's test and cross body test. All four positive on examination date 10/07/2022.[facility] [id number] NoteCONSULTATION CONSULTATION DATE: 10/07/2022 TO: John Ashby [...] activity modification, use of Zanaflex, Lyrica and Arcadia. RECOMMENDATIONS: I recommend proceeding with a right [...] right shoulder without contrast and physical therapy.[facility] [id number] Evaluation note* Encounter Date Diagnosis Assessment Notes Treatment Notes Treatment Clinical Notes Aug, Anemia (ICD-10 - D64.9) [facility] Other 01-16-2023 Evaluation note* Encounter Date Diagnosis [...] Healthy diet, exercise w/o change in treatment [facility] Other 12-30-2022 NoteCONSULTATION PROCEDURE DATE: 07/09/2022 PREOPERATIVE [...] will be followed up in the office.[facility] [id number] NoteCONSULTATION CONSULTATION DATE: 07/09/2022 HISTORY OF PRESENT [...] possible increase in dose. She also takes Arcadia 5/325 t.i.d. and Zanaflex 4 mg three [...] three months' time, unless otherwise indicated. [facility] [id number] NoteCONSULTATION CONSULTATION DATE: 05/20/2022 HISTORY OF PRESENT [...] medications include Celexa, Lyrica 50 mg b.i.d., Arcadia 5/325 t.i.d. and Zanaflex. Patient is having [...] level of C3-4. We will refill her Arcadia at 5/325 t.i.d. Supportive home measures were discussed such as heat and a menthol heat rub, as well as vitamin compliance. The patient agrees to move forward with the plan, will be followed up in the clinic thereafter.[facility] [id number] NoteCONSULTATION PROCEDURE DATE: 02/17/2022 PRE AND POSTOPERATIVE [...] will be followed up in the clinic.[facility] [id number] NotePROCEDURE: XR SHOULDER RT 2V or > COMPARISON: None. HISTORY: Pain of right shoulder joint FINDINGS: BONES:No acute fracture or dislocation. Minimal degenerative changes. Cervical fusion hardware SOFT TISSUES:Negative. No visible soft tissue swelling. EFFUSION:None visible. OTHER: Negative. IMPRESSION: No acute abnormality Electronically authenticated by: VANDANA COLLINS Date: 2022-02-16 19:11[facility] [id number] NoteCONSULTATION CONSULTATION DATE: 02/02/2022 CHIEF COMPLAINT: Right [...] aggravates the pain. The patient currently takes Arcadia 5/325 t.i.d., wellbutrin 150 mg, Lyrica 50 [...] point tenderness along the right bicipital tendon. Icer Machine strength is maintained. IMPRESSION: Current working diagnosis [...] like to proceed. CC: John Ashby D.O.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 Cold weather and bending bother her as well. Medications include Lyrica 75 mg t.i.d., which she has not been taking for the past two months; Celexa, Arcadia 5/325 t.i.d., Zanaflex and RINVOQ. She feels that her pain is managed well with her Arcadia, but is concerned about the neuropathic pain [...] in need of a refill for her Arcadia today, which we will give 5/325 t.i.d. [...] in three months' time unless otherwise indicated. [facility] Signed and Approved by: JACQUIE OLIVAS . 11/12/2021 16:27:00[facility]11-19-2018 Evaluation note* Diagnosis Onset Date Resolution Status PSVT (paroxysmal supraventricular tachycardia) acute Heart failure with improved ejection fraction (HFimpEF) acute Nonischemic cardiomyopathy a cute Orthostatic hypotension May 29, 2018 acute Anemia acute Essential hypertension acute ERICH (generalized anxiety disorder) acute Heart failure with improved ejection fraction (HFimpEF) acute Nonischemic cardiomyopathy a cute Preop exam for internal medicine acute PSVT (paroxysmal supraventricular tachycardia) [facility] Work Phone: [phone] 109-542011-19-2018 Evaluation note* Diagnosis Onset Date Resolution Status Heart failure with improved ejection fraction (HFimpEF) acute Nonischemic cardiomyopathy a cute Orthostatic hypotension May 29, 2018 acute Anemia acute Essential hypertension acute ERICH (generalized anxiety disorder) acute Heart failure with improved ejection fraction (HFimpEF) acute Nonischemic cardiomyopathy a cute Preop exam for internal medicine acute PSVT (paroxysmal supraventricular tachycardia) acute Rheumatoid arthritis acute [facility] Work Phone: Evaluation + Plan note Future Appointments Appointment Date:04/06/2023 09:30:00 AM Scheduled Provider: Location:[facility] Future Appointments Appointment Date:04/06/2024 12:00:00 PM Scheduled Provider: Location:[facility] Appointment Type[facility] Other Evaluation note* Diagnosis Right shoulder pain, unspecified chronicity- Primary documented in this encounter [facility]* Diagnosis Onset Date Resolution Status Hypertension acute Overweight acute PSVT (paroxysmal supraventricular tachycardia) [facility] Work Phone: Evaluation note* Diagnosis Onset Date Resolution Status Hypertension acute Overweight acute PSVT (paroxysmal supraventricular tachycardia) acute Heart failure with improved ejection fraction (HFimpEF ) acute Nonischemic cardiomyopathy a [facility] [place] [facility] Work Phone: evaluation note* Diagnosis Status post shoulder surgery- Primary [...] Pernicious anemia acute PSVT (paroxysmal supraventricular tachycardia) [facility] Work Phone: evaluation note* Diagnosis Status post shoulder surgery- Primary Other postprocedural status documented in this encounter [facility]* Diagnosis Status post shoulder surgery- Primary Other postprocedural status documented in this encounter [facility]* Diagnosis S/P arthroscopy of left shoulder- Primary documented in this encounter [facility]* Diagnosis S/P arthroscopy of left shoulder- Primary documented in this encounter [facility]* Diagnosis Complete tear of left rotator cuff, unspecified whether traumatic- Primary [facility] - Reported* Type Description Date [...] Surgical History ORIF, proximal fibula Surgical History [facility] 2011 Surgical History Lumbar fusion Surgical History ACDF C4-6 05/30 Hospitalization History See Above [facility] Other History general Narrative - Reported* Type [...] Surgical History ORIF, proximal fibula Surgical History [facility] 2011 Surgical History Lumbar fusion Surgical History ACDF C4-6 05/30 Surgical History Right reverse total shoulder ar throplasty 03/2023 Hospitalization History See Above [facility] Other Hospital course Narrative No data available for this section [facility] No data available for this section [facility] No data available for this section [facility] Summary Purpose Family History No Family [...] 2024 3:15pm Screening mammogram for breast cancer [facility] 2024 3:15pm Wellness examination August 29, [...] 2024 3:15pm Screening mammogram for breast cancer [facility] 2024 3:15pm Wellness examination August 29, [...] section and content) DATE CREATED AUTHOR 12/29/2017 [facility] DATE CREATED AUTHOR AUTHOR'S ORGANIZ ATION 08/29/2018 [facility] DATE CREATED AUTHOR AUTHOR'S ORGANIZ ATION 05/13/2020 [facility] DATE CREATED AUTHOR AUTHOR'S ORGANIZ ATION 10/15/2022 [facility] DATE CREATED AUTHOR AUTHOR'S ORGANIZ ATION 11/07/2023 [facility] DATE CREATED AUTHOR AUTHOR'S ORGANIZ ATION 03/20/2024 [facility] DATE CREATED AUTHOR AUTHOR'S ORGANIZ ATION 04/29/2024 [facility] DATE CREATED AUTHOR AUTHOR'S ORGANIZ ATION 10/05/2024 [facility] DATE CREATED AUTHOR AUTHOR'S ORGANIZ ATION 10/06/2024 [facility] DATE CREATED AUTHOR AUTHOR'S ORGANIZ ATION 10/18/2024 [facility] REASON FOR VISIT (unrecogniz ed section and content) Reason Comments Follow-up R rev TSA 04/06/23 Reason Comments Follow-up R shoulder pain, Rev TSA 04/06/23 poss coracoid an/or accromial fx ma Reason Comments Post-op Reason Comments Post-op Reason Comments Follow-up Reason Comments Follow-up MRI [facility] 09/28/24 Patient Care team informatio n (unrecognized section [...] December 28, 2023 End: December 28, 2023 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 Start Date End Date John Ashby MD [address] [place] [address] PCP - General Internal Medicine 12/23/22 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 Start Date End Date John Ashby MD [address] [place] [phone] PCP - General Internal Medicine 12/23/22 Team [...] April 10, 2024 End: April 10, 2024 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 Start Date End Date John Ashby MD [address] [place] [address] PCP - General Internal Medicine 12/23/22 Team Status: Inactive Member Role Status Dates John Ashby DO Primary Care Provide r, Attending Provider Active Start: April 17, 2024 End: April 17, 2024 Team Status: Inactive Member Role Status Dates John Ashby DO Primary Care Provide r, Attending Provider Active Start: May 09, 2024 End: May 09, 2024 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 Start Date End Date John Ashby MD [address] [facility], [phone] PCP - General Internal Medicine 12/23/22 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 Start Date End Date John Ashby MD [address] [facility], [phone] PCP - General Internal Medicine 12/23/22 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 [facility]. provides no warranty or guarantee of the accuracy or completeness of information in this document.
[2024-10-29 07:34] VITALS: BP 127/85; PULSE 78; TEMP 36.2; O2SAT 98
[2024-10-29 08:13] VITALS: BP 139/106; PULSE 76; O2SAT 96
[2024-10-29 08:16] VITALS: BP 143/76; PULSE 76; O2SAT 96
--- NOTE | 2024-10-29 08:17 | W.PM.PROCNOT ---
Date of procedure: 10/29/24 Pre-op diagnosis: Right shoulder pain Post-op diagnosis: same as pre-op Procedure: Procedure: Right suprascapular and axillary nerve block Medications: Bupivacaine 0.25% 3cc, depomedrol 40mg The patient was seen and examined in the preoperative holding area. Informed consent was obtained and placed on the chart.? The patient was brought to the medical procedure unit and placed in the prone position. A timeout was completed verifying correct patient, procedure site, positioning, plan, and special equipment.? Using aseptic technique, under direct fluoroscopic visualization, a 25-gauge 3-1/2 inch spinal needle was advanced to the superior portion of the right posterior osseous rim of the glenoid fossa, lateral and superior to the spinal glenoid notch.? 0.5 cc of the above solution was injected.? The needle was then redirected 3 mm inferiorly and another 0.5 cc of the above medication was injected.? This needle was then removed.? Using aseptic technique, under direct fluoroscopic visualization, another 25-gauge 3-1/2 inch spinal needle was advanced toward the most inferior and lateral border of the greater tubercle.? 0.5 cc of the above medication was administered.? The needle was then redirected 3 mm inferiorly.? 0.5 cc was administered in this region.? This needle was removed. ? The patient was taken to the postprocedural recovery area and monitored for an appropriate length of time before being found suitable for discharge in the accompaniment of a responsible adult. Anesthesia: Local Surgeon: Nicki Plunkett Pathology: none sent Condition: stable Disposition: no change
[2024-10-29] MEDS: METHYLPREDNISOLONE ACETATE 40 MG/ML VIAL INJ (08:18)
[2024-10-29] MEDS: BUPIVACAINE HCL 0.25% PF 25 MG/10 ML VIAL INJ (08:18)
[2024-10-29] MEDS: LIDOCAINE HCL 2% 400 MG/20 ML MDV 5 ML INJ (08:18)
[2024-10-29] MEDS: IOHEXOL 240 MG/ML - 10 ML VIAL 24 MG INJ (08:19)
== END 2024-10-29 08:22 | disposition home or self-care (01) ==
LOC: SURGOUT 07:21
PROVIDERS: PCP Internal Medicine; Visit Provider Anesthesiology
DX: M25.511 Pain in right shoulder (principal)
CPT/HCPCS: 64417; 64418; J0665; J1010; Q9966

== ENCOUNTER 2024-11-07 13:44 | Outpatient (OUT) | payer MEDICARE, SELFPAY ==
--- NOTE | 2024-11-07 14:06 | P.CN_ITS ---
Consult Note: HPI Data of Consult Patient: known to practice within the last 3 years Requesting Physician: Veronique Yu NP Primary Care Provider: John Mcdaniels, Consult Narrative Reason for consult: f/u Narrative: Radha Obrien a pleasant 64 year old female presents for evaluation of chronic pain. longstanding hx of chronic neck pain, shoulder pain, low back and bilateral hip pain. Hx of C3-7 fusion, previously found benefit to RFAs and ESIs. has failed to benefit from > 6 weeks of PT and provider guided HEP, heat, ice, tylenol, and NSAIDs. currently utilizing pregabalin 150mg TID, tizanidine 4mg TID PRN pain/spasms, and hydrocodone-acetaminophen BID-TID PRN moderate to severe pain. Pain today 6/10 in bilateral shoulders and hips, increasing to 10/10 with standing, walking, ROM, lifting, activity. denies falls or injury. following with orthopedic surgery for evaluation of left shoulder, now they are recommending a total left shoulder replacement. per pt she has had a total replacement on the right side. recently underwent right suprascapular/axillary nerve block with >80% improvement while anesthetized, preop pain up to 10/10 post op pain 1/10, also reporting 50% improvement ongoing. pt is interested in trialing for left shoulder pain. cc:: CC: Veronique Yu NP Review of Systems ROS Status of ROS 10 or more systems reviewed and unremark able except as noted in history and below Musculoskeletal Reports: back pain, neck pain and joint pain PFSH [facility] Medical History (Updated 10/17/24 @ 14:44 by Veronique Yu NP) Neck pain ?M54.2 - Cervicalgia (ICD-10) Low back pain ?M54.50 - Low back pain, unspecified (ICD-10) Osteoarthritis ?M19.90 - Unspecified osteoarthritis, unspecified site (ICD-10) Rheumatoid arthritis ?M06.9 - Rheumatoid arthritis, unspecified (ICD-10) TMJ (dislocation of temporomandibular joint) ?S03.00XA - Dislocation of jaw, unspecified side, initial encounter (ICD-10) Heartburn ?R12 - Heartburn (ICD-10) Pleural effusion ?J90 - Pleural effusion, not elsewhere classified (ICD-10) Irregular heart beat ?I49.9 - Cardiac arrhythmia, unspecified (ICD-10) Surgical History H/O exploratory thoracotomy ?Z98.890 - Other specified postprocedural states (ICD-10) H/O cervical spine surgery ?Z98.890 - Other specified postprocedural states (ICD-10) H/O shoulder surgery ?Z98.890 - Other specified postprocedural states (ICD-10) H/O foot surgery ?Z98.890 - Other specified postprocedural states (ICD-10) H/O: hysterectomy ?Z90.710 - Acquired absence of both cervix and uterus (ICD-10) H/O hand surgery ?Z98.890 - Other specified postprocedural states (ICD-10) H/O lumbosacral spine surgery ?Z98.890 - Other specified postprocedural states (ICD-10) Social History Little interest or pleasure in doing things: not at all Feeling down, depressed, or hopeless: not at all Meds Home Medications and Allergies Home Medications ?Medication ?Instructions ?Recorded ?Confirmed ?Type bupropion HCl 150 mg tablet,12 hr 150 mg PO DAILY 01/3010/29/24 History sustained-release (Wellbutrin SR) calcium PO .qd 12/15/22 History citalopram 20 mg tablet (Celexa) 20 mg PO DAILY 10/29/24 History leflunomide 10 mg tablet (Arava) 10 mg PO DAILY 10/29/24 History metoprolol succinate 25 mg 25 mg PO DAILY 12/15/22 History tablet,extended release 24 hr (Toprol XL) tizanidine 4 mg tablet (Zanaflex) See Rx Instructions .Route 11/24/23 10/29/24 Rx .COMPLEX PRN muscle spasticity #360 tabs pregabalin 150 mg capsule (Lyrica) 150 mg PO TID #270 caps 06/26/24 10/29/24 Rx hydrocodone 5 mg-acetaminophen 325 1 tab PO TID PRN pa in #90 tabs 10/17/24 10/29/24 Rx mg tablet Allergies Allergy/AdvReac Type Severity Reaction Status Date / Time No Known Drug Allergies Allergy Verified 10/29/24 07:38 Exam Constitutional Documenting provider has reviewed patient's vital signs: yes Common normals: no apparent distress, oriented x3, healthy appearing, alert and well nourished General appearance: cooperative HENMT Common normals: normocephalic, hearing grossly normal bilaterally and moist oral mucous membranes Head and scalp: normocephalic Eye Common normals: PERRL Pupil: PERRL Neck & C-Spine Common normals: full ROM General: normal visual inspection Other: negative spurlings Chest Common normals: inspection of chest normal Respiratory Common normals: normal respiratory effort, no retractions and no use of accessory muscles Back & Pelvis Lumbar spine/lower back: pain with ROM and lumbar spinal tenderness Sacroiliac joints: SI joints normal Other: bilateral sij negative parth(patricks), gaenslens, thigh thrust, compression test Extremity Right upper extremity: shoulder joint Left upper extremity: shoulder joint Right lower extremity: hip joint Left lower extremity: hip joint Other: increased pain and dysthesia over bilateral suprascapular and axillary nerves unable to perform posterior liftoff and apleys scratch test, bilaterally positive empty can mild pain with external rotation of bilateral hips, no significant pain with internal rotation Neuro Common normals: oriented x3 Sensorium/orientation: alert Motor exam: strength 5/5 throughout and no movement abnormalities noted Psych Common normals: mental status grossly normal, thought process normal, cooperative, affect normal, speech normal and activity/motor behavior normal Speech: normal speech Thought process: normal thought process Results Additional Findings Additional findings: If on a controlled substance or opioids, I have checked an [place]AR[place] report on this patient and there are no aberrancies noted in the prescribing history.??If on a controlled substance or opioid a drug screen was completed and reviewed within the last year, and if there has not been a drug screen completed we ordered one today to monitor higher risk, state monitored pain medication use. As part of providing excellent, safe, comprehensive care, the following was completed at our patient's visit: 1. A medication reconciliation and review to ensure accurate knowledge of current/active medications, including asking our patients to inform us about any ipxu-syy-[id number] medications or herbal remedies/nutritional supplements/alternative remedies. 2. A review to specifically ensure our patients have had annual screening for screening for depression, screening for tobacco use, and screening for unhealthy alcohol use. For concerning screenings had a discussion with the patient, provided patient education, and recommended follow-up with primary care provider when appropriate. If patient noted with a risk of falling, they received education on strength, gait, and balance training to prevent future risk of falling. Portions of this note may have been carried over from the previous visit and updated as appropriate. Please note this office utilizes paper charting in addition to the electronic medical record. A list of current medications, vitals, and PMH is available there as the clinical staff outside of myself do not have access to [employer] charting during the clinic day operations. As part of providing quality comprehensive care the current medications, vitals, and PMH were reviewed in the paper chart. Assessment and Plan Assessment and Plan (1) Chronic pain of both shoulders: (2) Sacroiliitis: Assessment and Plan: 10/08/24 bilateral SIJ injection >50% improvement ongoing (3) Chronic right shoulder pain: (4) Myofascial pain: (5) Chronic prescription opiate use: Assessment and Plan: I feel these medications are improving the patient's quality of life and allow them to tolerate activities of daily living as well as participate in recreational activity.? The patient does not report intolerable side effects. The patient is NOT opioid naive and non-pharmacologic and non-opioid treatment has failed to significantly relieve the patient's pain and improve functionality. The patient has a diagnosis that is related to a somatic or visceral pain etiology. ? ?? I reviewed with the patient the potential risks and side effects with the use of? opioid medications including but not limited to respiratory depression,? sedation, and even . Within the last 12 months I have verified the patient has access to naloxone should? these effects occur. The patient was advised to let? their family know they had Naloxone in case they would need to administer? the medication. I advised the patient to avoid the use of any other? sedation substances including alcohol, THC, and benzodiazepines while? taking opioid medications due to the risk of compounding side effects and? detrimental outcomes. within the last 12 months I have reviewed the INDUSTRIAL TECHNOLOGY TEACHER, pain treatment agreement and urine drug screen.? ?? A drug screen was completed within the last year, and no aberrancies were noted regarding their use of controlled substances. The patient understands they are subject to the terms and conditions of the pain contract that they have signed. ? ?? I have checked an OARRS report on this patient today and there are no aberrancies noted in the prescribing history.? Plan left suprascapular and axillary nerve block x1 working towards RFA under fluoroscopy for chronic left shoulder pain unresponsive to > 6 weeks of PT, provider guided HEP, heat, ice, tylenol, nsaids continue f/u with orthopedics as planned, pt delaying total shoulder replacement at this time continue tizanidine 4mg TID PRN pain/spasms continue lyrica 150mg TID continue hydrocodone-acetaminophen 5-325mg TID PRN moderate to severe pain 90 tabs to last 30 days f/u after injection
== END 2024-11-07 13:45 | disposition home or self-care (01) ==
LOC: PM 13:45
PROVIDERS: PCP Internal Medicine; Visit Provider Nurse Practitioner
DX: M25.511 Pain in right shoulder (principal); M25.512 Pain in left shoulder; M46.1 Sacroiliitis, not elsewhere classified; M79.18 Myalgia, other site; Z79.891 Long term (current) use of opiate analgesic
CPT/HCPCS: G0463

== ENCOUNTER 2024-11-19 08:15 | Day surgery (SDC) | payer MEDICARE, SELFPAY ==
--- OUTSIDE RECORDS SUMMARY | 2024-11-19 08:29 | XMS_ITS | CCD ---
Author Organization [facility] Care Team Providers Care Air/Ocean Export Clerk Name Role Phone BASIM, BARRY H. Unavailable Unavailable BASIM, BARRY H. Unavailable Unavailable BALL, JOHN E Unavailable Unavailable BASIM, BARRY H. Unavailable Unavailable BALL, JOHN E Unavailable Unavailable EBRAHEIM, MARYURI Attending Unavailable EBRAHEIM, MARYURI Admitting Unavailable BALL, JOHN Referring Unavailable BALL, JOHN Primary Care Unavailable EBRAHEIM, MARYURI Surgeon Unavailable NC Procedure Practitioner Unavailab le NC Procedure Practitioner Unavailab PRAKASH Chery Surgeon Unavailable EBRAHEIM, MARYURI Attending Unavailable [...] Amy vailable JOHN ASHBY Primary Care Physician [phone] Cesia Artis Unavailable Unavailable John Ashby MD [...] Unavailable BROWN, JORDAN A Referring Unavailable BROWN, JORADN A Referring Unavailable BROWN, JORDAN A Attending Unavailable BROWN, JORDAN A Referring Unavailable BROWN, JORDAN A Referring Unavailable BROWN, JORDAN A Attending Unavailable BROWN, JORDAN A Referring Unavailable BROWN, JORDAN A Attending Unavailable BROWN, JORDAN A Attending Unavailable BROWN, JORDAN A Referring Unavailable Dimitrios CHAUHAN, Nicki Borden Attending Unavailable Dimitrios CHAUHAN, Nicki Borden Attending Unavailable John Ashby DO Primary Care Provider Ethan Padilla DO Attending Provider John Ashby Primary Care Unavailable Ethan Padilla Attending Unavailable Ethan Padilla Admitting Unavailable Allergies Allergy Classification Reported Allergen(s) Allergy Type Date of Onset Reaction(s) Facility (1 source) 45740,[id number]; Translations: [Unknown] Propensity to adverse reactions (disorder) 2 [facility] Repository (20 sources) Cephalexin Drug Allergy 8 GI intolerance [facility] Work Phone: (7 sources) patient allergy list reviewed by nurse or physicia Propensity to adverse reactions 4 Comment:Done [employer] Other (1 source) Cephalexin Drug Allergy 5 [facility] Repository Medications Current Medications Medication Drug Class(es) Dates [...] tablets by mouth every four hours HYDROcodone-acetaminophen ([place]) 5-325 MG tablet Indications: Status post shoulder [...] 03/19/24 Status: Ordered Start: 06-30-2023 HYDROcodone-ac etaminophen ([place]) 5-325 MG tablet 06/30/2023 Active Start: 06-30-2023 take 1 tablet by anne th three times daily as needed HYDROcodone-acetaminophen ([place]) 5-325 MG tablet TAKE 1 TABLET BY MOUTH 3 TIMES A DAY NEEDED FOR PAIN*MUS LAST 30 DAYS 06/30/2023 Active acetaminophen 325 mg / oxyCODONE hydrochloride 5 mg oral tablet (20 sources) Opioid Agonist Start: 04-27-2024 Percocet 5 mg- 325 mg oral tablet See Instructions, 40 tab(s), Refill(s) 0, 1-2 tab(s) Oral q4hr, [facility]/pharmacy #[id number], 165, cm, 03/19/24 13:53:00 EDT, Height/Length [...] cap(s), Refills(s) 0, Pharmacy: [facility]/pharmacy #[id number], 165, cm, 03/19/24 13:53:00 EDT, Height/Length Dosing, 65, kg, 03/19/24 13:53:00 EDT, Weight Dosing Start Date: 04/27/24 Status: Ordered Start: 04-06-2023 take 1 capsule by mo ut twice daily as needed for pain CeleBREX 100 mg Cap 100 mg = 1 cap(s), Oral, BID, PRN for pain, # 60 cap(s), Refills(s) 0, Pharmacy: [facility]/pharmacy #[id number], 160, cm, 03/25/23 6:16:00 EDT, Height/Length [...] cap(s), Refills(s) 0, Pharmacy: [facility]/pharmacy #[id number], 160, cm, 03/25/23 6:16:00 EDT, Height/Length [...] tablet Discontinued 10 MG PO Daily January 26, 2024 12:00am January 26, 2024 8:55am Start: 06-30-2018 End: 09-27-2023 take 1 tablet by mouth once daily Citalopram 20 mg Tablet Discontinued 20 MG PO Daily June 30, 2018 1:00am September 27, 2023 2:50pm take 1 tablet by anne every twenty-four hours Citalopram Hydrobromide 10 MG 1 tablet Orally Once a day Active docusate sodium 100 mg oral capsule (3 sources) Start: 04-27-2024 take 1 capsule by mo [facility] twice daily as needed for constipation Colace 100 mg Cap 100 mg = 1 cap(s), Oral, BID, PRN for constipation, # 20 cap(s), Refills(s) 0, Pharmacy: [facility]/pharmacy #[id number], 165, cm, 03/19/24 13:53:00 EDT, Height/Length Dosing, 65, kg, 03/19/24 13:53:00 EDT, Weight Dosing Start Date: 04/27/24 Status: Ordered Start: 04-06-2023 take 1 capsule by [facility] twice daily as needed for constipation Colace 100 mg Cap 100 mg = 1 cap(s), Oral, BID, PRN for constipation, # 20 cap(s), Refills(s) 0, Pharmacy: [facility]/pharmacy #[id number], 160, cm, 03/25/23 6:16:00 EDT, Height/Length [...] Ordered Omeprazole 40 mg capsule,del ayed release(DR/EC) (4 sources) Start: 06-04-2024 Omeprazole 40 mg capsule,delayed [...] BREAKFAST ondansetron 4 mg disintegrating oral tablet (6 sources) Serotonin-3 Receptor Antagonist Start: 04-13-2024 take [...] Semaglutide Active 2 MG SUBCUT every week 10 05April 17, 2024 12:00am tiZANidine 4 mg oral capsule (20 sources) [...] (Original) alendronic acid 70 mg oral tablet (12 sources) Bisphosphonate Start: 06-30-2018 End: 09-27-2023 take [...] hydrochloride 360 mg extended release oral tablet (12 sources) Calcium Channel Lisandra Start: 06-30-2018 End: [...] 3:15pm Start: 06-28-2023 take 1 capsule by [facility] every twelve hours Doxycycline Hyclate 100 MG 1 capsule Orally Twice a day for 5 days Jun, Active Start: 07-06-2018 End: 09-27-2023 take 1 tablet by mouth twice daily Doxycycline Hyclate 100 mg tablet Discontinued 100 MG PO Twice daily 10 5 July 06, 2018 1:00am September 27, 2023 2:50pm ibuprofen 800 mg oral tablet (12 sources) Nonsteroidal Anti-inflammatory Drug Start: 07-06-2018 End: [...] a day for 30 days Jul, Active Semaglutide 2 mg/dose (8 mg/3 mL) pen injector (6 sources) Start: 10-23-2024 End: 10-23-2024 inject 2 mg by subcutaneous injection every week Semaglutide 2 mg/dose (8 mg/3 mL) pen injector Discontinued 2 MG SUBCUT every week 3 October 23, 2024 8:46am October 23, 2024 8:47am Start: 04-17-2024 End: 10-23-2024 inject 2 mg by subcutaneous injection every week Semaglutide 2 mg/dose (8 mg/3 mL) pen injector Discontinued 2 MG SUBCUT every week 3 April 17, 2024 12:00am October 23, 2024 8:46am Start: 04-17-2024 inject 2 mg by subcu taneous injection every week Semaglutide 2 mg/dose (8 mg/3 mL) pen injector Active 2 MG SUBCUT every week 3 April 17, 2024 12:00am Start: 04-17-2024 inject 2 mg by subcu taneous injection every week Semaglutide 2 mg/dose (8 mg/3 mL) pen injector Active 2 MG SUBCUT every week 3 April 16, 2024 11:00pm traZODone hydrochloride 100 mg oral tablet (12 sources) Serotonin Reuptake Inhibitor Start: 06-30-2018 End: [...] 27, 2023 12:00am September 28, 2023 3:15pm take 2 tablets by mo ut every [...] sources) Bradycardia 03-24-2023 Episodic Chronic kidney disease (20 sources) Chronic kidney disease; Translations: [Chronic kidney disease, unspecified] 06-22-2024 Chronic Congestive heart failure; nonhypertensive (20 sources) Chronic systolic heart failure; Translations: [Chronic systolic (congestive) heart failure] Onset: 09-05-2018 09-27-2023 Chronic Deficiency and other anemia (20 sources) Anemia; Translations: [Anemia, unspecified] 09-27-2023 Episodic Deficiency and other anemia (5 sources) Anemia, unspecified; Translations: [Anemia, unspecified] Onset: 09-17-2022 Episodic Deficiency and other anemia (6 sources) Pernicious anemia; Translations: [Vitamin B12 deficiency anemia due to intrinsic factor deficiency] 04-16-2024 Episodic Deficiency and other anemia (7 sources) Vitamin B12 deficiency anemia due to intrinsic factor deficiency; Translations: [Pernicious anemia] 04-17-2024 Episodic Disorders of lipid metabolism (6 sources) Mixed hyperlipidemia; Translations: [Hypercholesterolemia ] Onset: 11-04-2023 Chronic Essential hypertension (20 sources) Essential hypertension; Translations: [Essential (primary) hypertension] Chronic Fluid and electrolyte disorders (4 sources) Dehydration; Translations: [Dehydration] Episodic Hypertension with complications and secondary hypertension (6 sources) Hypertensive renal disease; Translations: [Hypertensive chronic [...] colitis, unspecified] 09-27-2023 Episodic Malaise and fatigue (20 sources) Fatigue; Translations: [Other fatigue] 09-27-2023 Episodic [...] monitoring] Episodic Other aftercare (3 sources) Other supervisor intermediates (current) drug therapy; Translations: [Long-term (current) use of other medications] Onset: 09-17-2022 04-17-2024 Episodic Other aftercare (8 sources) Therapeutic drug level - finding; Translations: [Encounter for therapeutic drug level monitoring] Episodic Other aftercare (2 sources) Encounter for therapeutic drug level monitoring; Translations: [Encounter for therapeutic drug level monitoring] Episodic Other aftercare (6 sources) Drug therapy finding; Translations: [Other mcfp (current) drug therapy] 04-17-2024 Episodic Other circulatory [...] not specified as traumatic] 10-18-2024 Episodic Other connective tissue disease (1 source) Tear of left rotator cuff; Translations: [Unspecified rotator cuff tear or rupture of left shoulder, not specified as traumatic] 11-06-2024 Episodic Other connective tissue disease (1 source) Unspecified rotator cuff tear or rupture of left shoulder, not specified as traumatic; Translations: [Rotator cuff (capsule) sprain] 11-06-2024 Episodic Other liver diseases (2 sources) Enzyme [...] joint, shoulder region] Onset: 02-16-2022 Episodic Other non-traumatic joint disorders (3 sources) Pain in left shoulder; Translations: [Left shoulder pain] Onset: 11-06-2024 11-05-2024 Episodic Other nutritional; endocrine; and metabolic disorders [...] conditions (not mental disorders or infectious disease) (16 sources) Encounter for screening mammogram for malignant [...] Test Name Value Interpretation Reference Range Facility X-ray reportOrdered By: Amaury Wells on 11-06-2024 Study report [facility] [address] [place] [address] XRay Report Signed Patient: Radha Zaidi MR#: [id number] : 1960 Acct:[id number] Age/Sex: 64 / F ADM Date: 5 Loc: [facility] Room: Type: [facility] Attending Dr: Ethan Padilla DO Copies to: Ethan Padilla DO~ Ordering Provider: Ethan Padilla DO Date of Service: 11/06/24 XR/XR shoulder LT min 2V*: M25.512 - Pain in left shoulder LEFT SHOULDER - - 4 views CLINICAL HISTORY: Left shoulder pain for 2 years COMPARISON: None FINDINGS: No fractures age. Superior subluxation humeral head suggests a chronic rotator cuff tear. Subchondral lucency involving the greater tuberosity noted. Most spurring glenohumeral joint and AC joint. Left Lung apex is clear XR/XR shoulder LT min 2V* IMPRESSION: No acute bony process. Mild degenerative change. Superior subluxation humeral head worrisome for chronic rotator cuff tear Impression dictated by: Alexi Wells M.D. 11/06/2024 9:08 PM Dictation Location: [facility] Transcribed By: EDER 11/06/242107 Dictated By: Alexi Wells MD 11/06/242105 Signed By: 11/06/242107 [facility] Work Phone: XR shoulder LT min 2V*on XR shoulder LT min 2V* [facility] [address] [place] [address] XRay Report Signed Patient: Radha Zaidi MR#: [id number] : 1960 Acct:[id number] Age/Sex: 64 / F ADM Date: 11/06/24 Loc: [facility] Room: Type: [facility] Attending Dr: Ethan Padilla DO Copies to: Ethan Padilla DO Ordering Provider: Ethan Padilla DO Date of Service: 11/06/24 XR/XR shoulder LT min 2V*: M25.512 - Pain in left shoulder LEFT SHOULDER - - 4 views CLINICAL HISTORY: Left shoulder pain for 2 years COMPARISON: None FINDINGS: No fractures age. Superior subluxation humeral head suggests a chronic rotator cuff tear. Subchondral lucency involving the greater tuberosity noted. Most spurring glenohumeral joint and AC joint. Left Lung apex is clear XR/XR shoulder LT min 2V* IMPRESSION: No acute bony process. Mild degenerative change. Superior subluxation humeral head worrisome for chronic rotator cuff tear Impression dictated by: Alexi Wells M.D. 11/06/2024 9:08 PM Dictation Location: [facility] Transcribed By: EDER 11/06/242107 Dictated By: Alexi Wells MD 11/06/242105 Signed By: 11/06/242107 Normal [facility] MRI Shoulder w/o Contrast [place] 09-30-2024 [...] DO Transcribed by: DANISHA Technologist: TED Shah [facility] Basophils Auto (Bld) [#/Vol] on 08-31-2024 Basophils (Bld) [#/Vol] Automated basophil count 0.0-0.1 [facility] Basophils/100 WBC Auto (Bld) on 08-31-2024 Basophils/100 WBC (Bld) Automated basophil % 0.2-2.0 [facility] Cholesterol in LDL Calc [Mas s/Vol]on 08-31-2024 Cholesterol in LDL [Mass/Vol] Cholesterol in LDL [Mass/volume] in Serum or Plasma by calculation [facility] Comment on above: <100 mg/dl [id number] 0-129 mg/dl NEAR OR ABOVE [id number] mg/dl BORDERLINE [id number] mg/dl HIGH>190 mg/dl VERY HIGH Cholesterol in VLDL Calc [Ma ss/Vol]on 08-31-2024 Cholesterol in VLDL [Mass/Vol] Cholesterol in VLDL [Mass/volume] in Serum or Plasma by calculation [facility] Eosinophils/100 WBC Auto (Bl d)on 08-31-2024 Eosinophils/100 WBC (Bld) Automated eosinophil % 0.9-7.0 [facility] Erythrocyte distribution wid th Auto (RBC) [Ratio]on 08-31-2024 Erythrocyte distribution width (RBC) [Ratio] Erythrocyte distribution width [Ratio] by Automated count High 11.0-15.0 [facility] Estimated glomerular filtrat ion rate (GFR) non- Americanon 08-31-2024 GFR/1.73 sq M.predicted among non-blacks MDRD (S/P/Bld) [Vol rate/Area] Estimated glomerular filtration rate (GFR) non- Low >=60 mL/min/1.73 m 2 [facility] Globulin Calc (S) [Mass/Vol] on 08-31-2024 Globulin (S) [Mass/Vol] Serum globulin measurement by calculation (mass/volume) [facility] Hematocrit Auto (Bld) [Volum e fraction]on 08-31-2024 Hematocrit (Bld) [Volume fraction] Hematocrit [Volume Fraction] of Blood by Automated count Low 36.0-48.0 [facility] Hemoglobin [Mass/volume] in Bloodon 08-31-2024 Hemoglobin (Bld) [Mass/Vol] Hemoglobin [Mass/volume] in Blood Low 12.0-16.0 [facility] Laboratory - Chemistry and C hemistry - challengeon 08-31-2024 Albumin [Mass/Vol] 3.8 g/dL 3.4-5.0 [facility] ALP [Catalytic activity/Vol] 60 U/L 46-116 [facility] ALT [Catalytic activity/Vol] 15 U/L 14-59 [facility] AST [Catalytic activity/Vol] 9 U/L Low 15-37 [facility] Bilirubin [Mass/Vol] 0.5 mg/dL 0.2-1.0 [facility] Calcium [Mass/Vol] 9.2 mg/dL 8.5-10.1 [facility] Chloride [Moles/Vol] 107 mmol/L 98-107 [facility] Cholesterol [Mass/Vol] 196 mg/dL <=200 [facility] Cholesterol in HDL [Mass/Vol] 68 mg/dL High 40-60 [facility] Comment on above: > or =60 mg/dl - LOW CARDIOVASCULAR RISK<40 mg/dl - HIGH CARDIOVASCULAR RISK CO2 [Moles/Vol] 26.9 mmol/L 21.0-32.0 [facility] Creatinine [Mass/Vol] 1.29 mg/dL High 0.55-1.02 [facility] GFR/1.73 sq M.predicted MDRD (S/P/Bld) [Vol rate/Area] 50 mL/min/{1.73_m2} Low >=60 mL/min/1.73 m 2 [facility] Glucose [Mass/Vol] 72 mg/dL Low 74-106 [facility] Potassium [Moles/Vol] 4.3 mmol/L 3.5-5.1 [facility] Protein [Mass/Vol] 7.0 g/dL 6.4-8.2 [facility] Sodium [Moles/Vol] 143 mmol/L 136-145 [facility] Triglyceride [Mass/Vol] 66 mg/dL <=150 [facility] TSH Qn 1.339 m[IU]/L 0.358-3.740 [facility] Urea nitrogen [Mass/Vol] 20.0 mg/dL High 7.0-18.0 [facility] Urea nitrogen/Creatinine [Mass ratio] 15.5 mg/mg [facility] Laboratory - Hematology and Cell countson 08-31-2024 Immature granulocytes/100 WBC (Bld) 0.4 % 0.0-0.5 [facility] Leukocytes [#/volume] correc fito for nucleated erythrocytes in Blood by Automated counon 08-31-2024 WBC corrected for nucl RBC Auto (Bld) [#/Vol] Leukocytes [#/volume] corrected for nucleated erythrocytes in Blood by Automated coun 4.0-11.0 [facility] Lymphocytes Auto (Bld) [#/Vo l]on 08-31-2024 Lymphocytes (Bld) [#/Vol] Lymphocytes [#/volume] in Blood by Automated count 1.2-3.8 [facility] Lymphocytes/100 WBC Auto (Bl d)on 08-31-2024 Lymphocytes/100 WBC (Bld) Lymphocytes/100 leukocytes in Blood by Automated count 20.5-60.0 [facility] MCH Auto (RBC) [Entitic mass ]on 08-31-2024 MCH (RBC) [Entitic mass] MCH [Entitic mass] by Automated count 26.7-34.0 [facility] MCHC Auto (RBC) [Mass/Vol]on 08-31-2024 MCHC (RBC) [Mass/Vol] MCHC [Mass/volume] by Automated count 29.9-35.2 [facility] MCV Auto (RBC) [Entitic vol] on 08-31-2024 MCV (RBC) [Entitic vol] MCV [Entitic volume] by Automated count High 81.0-99.0 [facility] Microalbumin [Mass/volume] i n Urineon 08-31-2024 Albumin DL <= 20 mg/L (U) [Mass/Vol] Microalbumin [Mass/volume] in Urine <=30.0 [facility] Monocytes Auto (Bld) [#/Vol] on 08-31-2024 Monocytes (Bld) [#/Vol] Automated blood monocyte count 0.3-0.8 [facility] Monocytes/100 WBC Auto (Bld) on 08-31-2024 Monocytes/100 WBC (Bld) Automated monocyte % 1.7-12.0 [facility] Neutrophils Auto (Bld) [#/Vo l]on 08-31-2024 Neutrophils (Bld) [#/Vol] Neutrophils [#/volume] in Blood by Automated count 1.4-6.5 [facility] Neutrophils/100 WBC Auto (Bl d)on 08-31-2024 Neutrophils/100 WBC (Bld) Automated neutrophil % 43.0-75.0 [facility] No Panel Informationon 08-31 Eosinophils # (Auto) 0.2 10 3/uL 0.0-0.7 [facility] Immature Granulocyte # (Auto) 0.02 10 3/uL 0.00-0.03 [facility] Urine Random Creatinine 176.19 mg/dL 20.00-300.0 0 [facility] Platelet mean volume Auto (B ld) [Entitic vol]on 08-31-2024 Platelet mean volume (Bld) [Entitic vol] Platelet mean volume [Entitic volume] in Blood by Automated count Low 9.5-13.5 [facility] Platelets Auto (Bld) [#/Vol] on 08-31-2024 Platelets (Bld) [#/Vol] Platelets [#/volume] in Blood by Automated count 150-450 [facility] RBC Auto (Bld) [#/Vol]on RBC (Bld) [#/Vol] Erythrocytes [#/volu me] in Blood by Automated count Low 4.20-5.40 [facility] Serum or plasma albumin/glob ulin mass ratioon 08-31-2024 Albumin/Globulin [Mass ratio] Serum or plasma albumin/globulin mass ratio [facility] Serum or plasma anion gap de terminationon 08-31-2024 Anion gap [Moles/Vol] Serum or plasma anion gap determination [facility] Serum or plasma total choles terol/high density lipoprotein (HDL) cholesterol mass albina 08-31-2024 Cholesterol.total/C holesterol in HDL [Mass ratio] Serum or plasma total cholesterol/high density lipoprotein (HDL) cholesterol mass rat [facility] Comment on above: 3.3 - 4.4 LOW RISK4. 4 - 7.1 AVERAGE RISK7.1 - 11.0 MODERATE RISK>11.0 HIGH RISK Urine microalbumin/creatinin e mass ratioon 08-31-2024 Albumin/Creatinine DL <= 20 mg/L (U) [Mass ratio] Urine microalbumin/creatinine mass ratio 0.0-29.9 [facility] Comment on above: NO MICROALBUMINURIA 0-29 MG/GCLINICAL MICROALBUMINURIA 30-300 MG/GMACROALBUMINURIA >300 MG/G Basophils Auto (Bld) [#/Vol] on 06-21-2024 Basophils (Bld) [#/Vol] Automated basophil count 0.0-0.1 [facility] Basophils/100 WBC Auto (Bld) on 06-21-2024 Basophils/100 WBC (Bld) Automated basophil % 0.2-2.0 [facility] Eosinophils/100 WBC Auto (Bl d)on 06-21-2024 Eosinophils/100 WBC (Bld) Automated eosinophil % 0.9-7.0 [facility] Erythrocyte distribution wid th Auto (RBC) [Ratio]on 06-21-2024 Erythrocyte distribution width (RBC) [Ratio] Erythrocyte distribution width [Ratio] by Automated count 11.0-15.0 [facility] Estimated glomerular filtrat ion rate (GFR) non- Americanon 06-21-2024 GFR/1.73 sq M.predicted among non-blacks MDRD (S/P/Bld) [Vol rate/Area] Estimated glomerular filtration rate (GFR) non- Low >=60 mL/min/1.73 m 2 [facility] Globulin Calc (S) [Mass/Vol] on 06-21-2024 Globulin (S) [Mass/Vol] Serum globulin measurement by calculation (mass/volume) [facility] Hematocrit Auto (Bld) [Volum e fraction]on 06-21-2024 Hematocrit (Bld) [Volume fraction] Hematocrit [Volume Fraction] of Blood by Automated count Low 36.0-48.0 [facility] Hemoglobin [Mass/volume] in Bloodon 06-21-2024 Hemoglobin (Bld) [Mass/Vol] Hemoglobin [Mass/volume] in Blood Low 12.0-16.0 [facility] Laboratory - Chemistry and C hemistry - challengeon 06-21-2024 Albumin [Mass/Vol] 3.8 g/dL 3.4-5.0 [facility] ALP [Catalytic activity/Vol] 48 U/L 46-116 [facility] ALT [Catalytic activity/Vol] 13 U/L Low 14-59 [facility] AST [Catalytic activity/Vol] 14 U/L Low 15-37 [facility] Bilirubin [Mass/Vol] 0.5 mg/dL 0.2-1.0 [facility] Calcium [Mass/Vol] 9.1 mg/dL 8.5-10.1 [facility] Chloride [Moles/Vol] 105 mmol/L 98-107 [facility] CO2 [Moles/Vol] 26.1 mmol/L 21.0-32.0 [facility] Creatinine [Mass/Vol] 1.43 mg/dL High 0.55-1.02 [facility] GFR/1.73 sq M.predicted MDRD (S/P/Bld) [Vol rate/Area] 45 mL/min/{1.73_m2} Low >=60 mL/min/1.73 m 2 [facility] Glucose [Mass/Vol] 76 mg/dL 74-106 [facility] Potassium [Moles/Vol] 3.4 mmol/L Low 3.5-5.1 [facility] Protein [Mass/Vol] 6.7 g/dL 6.4-8.2 [facility] Sodium [Moles/Vol] 144 mmol/L 136-145 [facility] Urea nitrogen [Mass/Vol] 18.0 mg/dL 7.0-18.0 [facility] Urea nitrogen/Creatinine [Mass ratio] 12.6 mg/mg [facility] Laboratory - Hematology and Cell countson 06-21-2024 ESR (Bld) [Velocity] 6 mm/h <=30 [facility] Immature granulocytes/100 WBC (Bld) 0.3 % 0.0-0.5 [facility] Leukocytes [#/volume] correc fito for nucleated erythrocytes in Blood by Automated counon 06-21-2024 WBC corrected for nucl RBC Auto (Bld) [#/Vol] Leukocytes [#/volume] corrected for nucleated erythrocytes in Blood by Automated coun Low 4.0-11.0 [facility] Lymphocytes Auto (Bld) [#/Vo l]on 06-21-2024 Lymphocytes (Bld) [#/Vol] Lymphocytes [#/volume] in Blood by Automated count 1.2-3.8 [facility] Lymphocytes/100 WBC Auto (Bl d)on 06-21-2024 Lymphocytes/100 WBC (Bld) Lymphocytes/100 leukocytes in Blood by Automated count 20.5-60.0 [facility] MCH Auto (RBC) [Entitic mass ]on 06-21-2024 MCH (RBC) [Entitic mass] MCH [Entitic mass] by Automated count 26.7-34.0 [facility] MCHC Auto (RBC) [Mass/Vol]on 06-21-2024 MCHC (RBC) [Mass/Vol] MCHC [Mass/volume] by Automated count 29.9-35.2 [facility] MCV Auto (RBC) [Entitic vol] on 06-21-2024 MCV (RBC) [Entitic vol] MCV [Entitic volume] by Automated count 81.0-99.0 [facility] Monocytes Auto (Bld) [#/Vol] on 06-21-2024 Monocytes (Bld) [#/Vol] Automated blood monocyte count 0.3-0.8 [facility] Monocytes/100 WBC Auto (Bld) on 06-21-2024 Monocytes/100 WBC (Bld) Automated monocyte % 1.7-12.0 [facility] Neutrophils Auto (Bld) [#/Vo l]on 06-21-2024 Neutrophils (Bld) [#/Vol] Neutrophils [#/volume] in Blood by Automated count 1.4-6.5 [facility] Neutrophils/100 WBC Auto (Bl d)on 06-21-2024 Neutrophils/100 WBC (Bld) Automated neutrophil % Low 43.0-75.0 [facility] No Panel Informationon 06-21 Eosinophils # (Auto) 0.1 10 3/uL 0.0-0.7 [facility] Immature Granulocyte # (Auto) 0.01 10 3/uL 0.00-0.03 [facility] Platelet mean volume Auto (B ld) [Entitic vol]on 06-21-2024 Platelet mean volume (Bld) [Entitic vol] Platelet mean volume [Entitic volume] in Blood by Automated count Low 9.5-13.5 [facility] Platelets Auto (Bld) [#/Vol] on 06-21-2024 Platelets (Bld) [#/Vol] Platelets [#/volume] in Blood by Automated count 150-450 [facility] RBC Auto (Bld) [#/Vol]on RBC (Bld) [#/Vol] Erythrocytes [#/volu me] in Blood by Automated count Low 4.20-5.40 [facility] Serum or plasma albumin/glob ulin mass ratioon 06-21-2024 Albumin/Globulin [Mass ratio] Serum or plasma albumin/globulin mass ratio [facility] Serum or plasma anion gap de terminationon 06-21-2024 Anion gap [Moles/Vol] Serum or plasma anion gap determination [facility] No Panel Informationon 06-05 Kate Scruggs, ARR T 06/09/2024 1:08 PM L Inj/Asp: L glenohumeral on 06/05/2024 2:26 PM Indications: pain Details: 25 G needle, ultrasound-guided Medications: 2 mL betamethasone acetate-betamethasone sodium phosphate 6 (3-3) MG/ML Consent was given by the patient. [facility] XR Shoulder - left 2 Viewson 05-09-2024 Imaging Result: 3 views left shoulder, Grashey/Zanca/outlet, taken today and saved to the permanent medical record are reviewed. No fractures. [facility]CI WNL [facility] XR Shoulder - left 2 Viewson 05-08-2024 Radiology Study observation (narrative) [facility] Main OR Intraoperative Recor don 04-30-2024 Main OR Intraoperative Record Main OR Intraoperative Record Normal [facility] CBC w/ Auto Diffon 4 Basophils/100 WBC (Bld) 1.3 % Normal 0.0-2.0 [facility] Comment on above: Performed By: #### 2 [id number] ####[facility] [address] [place] [address] Basophils/Leukocyte s Auto (Bld) [Pure # fraction] 0.1 E9/L Normal 0.0-0.2 [facility] Comment on above: Performed By: #### 2 286715 ####[facility] [address] [place] [address] Eosinophils (Bld) [#/Vol] 0.2 E9/L Normal 0.0-0.5 [facility] Comment on above: Performed By: #### 2 078383 ####[address] [address] Eosinophils/100 WBC (Bld) 3.7 % Normal 0.0-8.0 [facility] Comment on above: Performed By: #### 2 701281 ####[address] [address] Erythrocyte distribution width (RBC) [Ratio] 15.3 % High 10.9-14.2 [facility] Comment on above: Performed By: #### 2 674920 ####[address] [address] Hematocrit (Bld) [Volume fraction] 27.7 % Low 34.0-46.0 [facility] Comment on above: Performed By: #### 2 279156 ####[address] [address] Hemoglobin (Bld) [Mass/Vol] 9.6 g/dL Low 12.0-16.0 [facility] Comment on above: Performed By: #### 2 999490 ####[address] [address] Lymphocytes (Bld) [#/Vol] 0.9 E9/L Low 1.0-4.0 [facility] Comment on above: Performed By: #### 2 676308 ####[address] [address] Lymphocytes/100 WBC (Bld) 20.4 % Normal 14.0-50.0 [facility] Comment on above: Performed By: #### 2 750711 ####[address] [address] MCH (RBC) [Entitic mass] 33.7 pg Normal 27.0-34.0 [facility] Comment on above: Performed By: #### 2 090285 ####[address] [address] MCHC (RBC) [Mass/Vol] 34.6 g/dL Normal 31.4-36.0 [facility] Comment on above: Performed By: #### 2 135262 ####[address] [address] MCV (RBC) [Entitic vol] 97.3 fL Normal 80.0-100.0 [facility] Comment on above: Performed By: #### 2 268488 ####[address] [address] Monocytes (Bld) [#/Vol] 0.8 E9/L Normal 0.2-1.0 [facility] Comment on above: Performed By: #### 2 569735 ####[address] [address] Neutrophils (Bld) [#/Vol] 2.4 E9/L Normal 2.0-7.5 [facility] Comment on above: Performed By: #### 2 836906 ####[address] [address] Neutrophils/100 WBC (Bld) 55.1 % Normal 36.0-75.0 [facility] Comment on above: Performed By: #### 2 143542 ####[address] [address] Platelet 213.0 E9/L Normal 150.0-500.0 [facility] Comment on above: Performed By: #### 2 458003 ####[address] [address] Platelet mean volume (Bld) [Entitic vol] 7.0 fL Normal 6.4-10.8 [facility] Comment on above: Performed By: #### 2 542718 ####[address] [place] [address] RBC (Bld) [#/Vol] 2.9 E12/L Low 4.3-5.9 [facility] Comment on above: Performed By: #### 2 040675 ####[facility] [address] [place] [address] WBC corrected for nucl RBC Auto (Bld) [#/Vol] 4.3 E9/L Normal 4.0-11.0 [facility] Comment on above: Result Comment: Mae pheral smear review performed. Performed By: #### 2 857179 ####[facility] [address] [place] [address] Discharge Instructionson Discharge Instructions Discharge Instructions ZAIDISHIRA MAXWELLSHEYLA Lockett :1960 Visit Date:04/27/2024 Inpatient Discharge Instructions Your [...] has already been scheduled Where: [address] [place] [address]- Business (1) Medications What How Much When Instructions Next Dose New acetaminophen-oxycodone (Percocet 5 mg-325 mg oral tablet) See instructions 1-2 tab(s) Oral q4hr Pickup at [facility]/pharmacy #6177 New celecoxib (CeleBREX 100 mg Cap) 1 Capsules By Mouth 2 times a day as needed for for pain Pickup at [facility]/pharmacy #6177 New docusate (Colace 100 mg Cap) 1 Capsules By Mouth 2 times a day as needed for for constipation [facility] Unchanged buPROPion (Wellbutrin XL 300 mg/ [...] Tablets By Mouth Every day Pharmacy Information [facility]/pharmacy #6177: [address], [place] [phone] What How Much When Comments Stop Taking acetaminophen-hydrocodone (acetaminophen-hydrocodone 325 mg-5 mg oral tablet) 1 Tablets By Mouth Every 6 hours Education Materials [place], [place] [facility] AFTER YOUR SHOULDER ARTHROSCOPY [...] band-aids t (more content not included)... [facility] [...] 04-27-[facility] Inpatient Patient Summary Inpatient Patient Summary [address] [address] [facility] Clinical Discharge Instructions PERSON INFORMATION Name: [facility]#:[id number] PHYSICIANS Admitting Physician: Jordan Yuan DO Attending Physician: Jordan Yuan DO PCP: JOHN ASHBY DO Discharge Diagnosis: Comment: PATIENT EDUCATION INFORMATION Instructions: Iris Yuan - After Your Shoulder Arthroscopy (Custom) Medication Leaflets: Follow up: MEDICATION LIST New Medications [facility], [address], [place] [id number], [phone] acetaminophen-oxycodone (Percocet 5 mg-325 mg oral tablet) [...] By Mouth every 6 hours. Comment: Normal [facility] Main OR PACU I Recordon 04-10 Main OR PACU I Record Main OR PACU I Record PACU Phase I Document Type FT Summary Primary Physician: Jordan Yuan DO Finalized Date/Time: 04/27/24 11:12:00 Pt. Name: ZAIDIRADHA/Sex: 1960 Female Med Rec #: [id number] Physician: Jordan Yuan DO Financial #: [id number] Pt. Type: A Room/Bed: [place] [address] Admit/Disch: 04/27/24 05:21:12 - Institution: Case Times [...] By: Ling Kathleen RN 04/27/24 11:12 Normal [facility] Main OR Preoperative Recordo n 04-27-2024 Main OR Preoperative Record Main OR Preoperative Record PreOp Document Type FT Summary Primary Physician: Jordan Yuan DO Finalized Date/Time: 04/27/24 09:02:45 Pt. Name: SHIRA ZAIDISHEYLA Irwin./Sex: 1960 Female Med Rec #: [id number] Physician: Jordan Yuan DO Financial #: [id number] Pt. Type: A Room/Bed: [place] [address] Admit/Disch: 04/27/24 05:21:12 - Institution: Case Times [...] By: Carli Gomez RN 04/27/24 09:02 Normal [facility] Operative Reporton Operative Report Operative Report Patient: RADHA ZAIDI Age: 63 years Sex: Female : 1960 Associated Diagnoses: None Author: Jordan Yuan DO DATE OF SURGERY: 04/27/2024 SURGEON: Jordan Yuan D.O. OPHTHALMOLOGY ASSISTANT: Jeff Marshall PREOPERATIVE DIAGNOSIS: Rotator cuff tear, [...] fashion. The forearm was secured in the Zones tenet pneumatic arm munoz. Landmarks were demarcated. [...] the greater tuberosity was cleared with the Mineral wand to improve visualization. An accessory anterosuperolateral portal was made with outside in technique using spinal needle localization. A passport cannula was placed. Soft tissue was cleared from the lesser tuberosity with the Mineral wand. A bony bleeding bed was created with the arthroscopic bur on the reverse setting. The punch was placed to the anterior portal and used to create a socket for the corkscrew anchor at the upper portion of the lesser tuberosity. The anchor was inserted. The sutures were passed using th (more content not included)... Normal [facility] Comment on above: Result Comment: Elec tronically Signed By: Jordan Yuan DO\.zari\Date and Time Signed: 04/27/24 15:13 EDT Outpatient Surgery Discharge Instructionon 04-27-2024 Outpatient Surgery Discharge Instruction Outpatient Surgery Discharge Instruction [place] [id number] Patient Discharge Instructions PERSON INFORMATION Name: RADHA ZAIDI Date of : 1960 Current Date: 04/27/2024 07:48:25 PHYSICIANS Admitting Physician: Jordan Yuan DO Discharge Diagnosis: DYANRADHA has been given the following list of follow-up instructions, prescriptions, and patient education materials: IF UNABLE TO CONTACT YOUR PHYSICIAN AND YOU FEEL IT IS AN EMERGENCY, GO TO THE NEAREST EMERGENCY ROOM OR CALL [phone] I, ZAIDIRADHA, have received the attached patient education materials/instructions [...] to serve you. Thank you for choosing [facility] HERE ARE THE MEDICATION CHANGES THAT OCCURRED DURING YOUR HOSPITAL STAY New Medications [facility], [address], [place] [id number], [phone] acetaminophen-oxycodone (Percocet 5 mg-325 mg oral tablet) [...] every 6 hours. PATIENT EDUCATION INFORMATION Instructions: [place], [place] [facility] AFTER YOUR SHOULDER ARTHROSCOPY [...] follow up (more content not included)... Normal [facility] Proceduralon 04-27-2024 Procedural Procedural Patient: RADHA ZAIDI Age: 63 years Sex: Female : 1960 Associated Diagnoses: None Author: Garett CHAUHAN, Wm Mistry Procedure Nerve Block Block Type: Interscalene block. [...] lido; 22g 50mm insulated echogenic block needle wtih US; 10cc .5% bupiv and 133mg exparel [...] The patient tolerated the procedure as expected. 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 Family History: Primary malignant neoplasm of prostate Father Acute myocardial infarction Mother Procedure history: Total shoulder replacement (30430627) on 04/06/2023 at 62 Years. Cervical laminectomy (7161497431). Amputation of finger (389005025). Removal of lung, Partial (60565). Open reduction and internal fixation of fracture Leg (257727153). Foot surgery (0155052513). Lumbar discectomy (349964047). Social History Social & Psychosocial Habits Alcoh (more content not included)... Normal [facility] Basophils Auto (Bld) [#/Vol] on 03-27-2024 Basophils (Bld) [#/Vol] 0.0 10 3/uL 0.0-0.1 [facility] Basophils/100 WBC Auto (Bld) on 03-27-2024 Basophils/100 WBC (Bld) 0.7 % 0.2-2.0 [facility] Eosinophils/100 WBC Auto (Bl d)on 03-27-2024 Eosinophils/100 WBC (Bld) 2.0 % 0.9-7.0 [facility] Erythrocyte distribution wid th Auto (RBC) [Ratio]on 03-27-2024 Erythrocyte distribution width (RBC) [Ratio] 14.7 % 11.0-15.0 [facility] Hematocrit Auto (Bld) [Volum e fraction]on 03-27-2024 Hematocrit (Bld) [Volume fraction] 30.8 % Low 36.0-48.0 [facility] Hemoglobin [Mass/volume] in Bloodon 03-27-2024 Hemoglobin (Bld) [Mass/Vol] 10.0 g/dL Low 12.0-16.0 [facility] Laboratory - Chemistry and C hemistry - challengeon 03-27-2024 Cobalamin (Vitamin B12) [Mass/Vol] 172 pg/mL Abnormal 232-1245 [facility] Comment on above: Performed at: [facility] [address]ricio [address] [id number] Director: Lito Matamoros PhD, Phone: [phone] Laboratory - Hematology and Cell countson 03-27-2024 Immature granulocytes/100 WBC (Bld) 0.5 % 0.0-0.5 [facility] Leukocytes [#/volume] correc fito for nucleated erythrocytes in Blood by Automated counon 03-27-2024 WBC corrected for nucl RBC Auto (Bld) [#/Vol] 4.4 10 3/uL 4.0-11.0 [facility] Lymphocytes Auto (Bld) [#/Vo l]on 03-27-2024 Lymphocytes (Bld) [#/Vol] 1.9 10 3/uL 1.2-3.8 [facility] Lymphocytes/100 WBC Auto (Bl d)on 03-27-2024 Lymphocytes/100 WBC (Bld) 42.3 % 20.5-60.0 [facility] MCH Auto (RBC) [Entitic mass ]on 03-27-2024 MCH (RBC) [Entitic mass] 31.9 pg 26.7-34.0 [facility] MCHC Auto (RBC) [Mass/Vol]on 03-27-2024 MCHC (RBC) [Mass/Vol] 32.5 g/dL 29.9-35.2 [facility] MCV Auto (RBC) [Entitic vol] on 03-27-2024 MCV (RBC) [Entitic vol] 98.4 fL 81.0-99.0 [facility] Monocytes Auto (Bld) [#/Vol] on 03-27-2024 Monocytes (Bld) [#/Vol] 0.6 10 3/uL 0.3-0.8 [facility] Monocytes/100 WBC Auto (Bld) on 03-27-2024 Monocytes/100 WBC (Bld) 12.7 % High 1.7-12.0 [facility] Neutrophils Auto (Bld) [#/Vo l]on 03-27-2024 Neutrophils (Bld) [#/Vol] 1.8 10 3/uL 1.4-6.5 [facility] Neutrophils/100 WBC Auto (Bl d)on 03-27-2024 Neutrophils/100 WBC (Bld) 41.8 % Low 43.0-75.0 [facility] No Panel Informationon 03-27 Eosinophils # (Auto) 0.1 10 3/uL 0.0-0.7 [facility] Folate 14.00 ng/mL 8.60-58.90 [facility] Immature Granulocyte # (Auto) 0.02 10 3/uL 0.00-0.03 [facility] Platelet mean volume Auto (B ld) [Entitic vol]on 03-27-2024 Platelet mean volume (Bld) [Entitic vol] 9.3 fL Low 9.5-13.5 [facility] Platelets Auto (Bld) [#/Vol] on 03-27-2024 Platelets (Bld) [#/Vol] 235 10 3/uL 150-450 [facility] RBC Auto (Bld) [#/Vol]on RBC (Bld) [#/Vol] 3.13 10 6/uL Low 4.20-5.40 [facility] Reticulocytes/100 RBC Auto ( Bld)on 03-27-2024 Reticulocytes/100 RBC (Bld) 2.37 % 0.60-3.10 [facility] Serum or plasma methylmalona te measurement (moles/volume)on 03-27-2024 Methylmalonate [Moles/Vol] 195 nmol/L 0-378 [facility] Comment on above: This test was develo ped and its performance characteristicsdetermined by [facility]. It has not been cleared orapproved by the Food and Drug Administration.Performed at: [address] [id number] Director: Goldy Aparicio MD, Phone: [phone] XR Chest 2 Viewson 4 XR Chest [...] Signed by: John Neal MD Transcribed by: DP Technologist: DARLING Technical Comments Radiation Dose: Ka,r in mGy = na DAP = na Normal [facility] BMPon 03-19-2024 Anion gap [Moles/Vol] 9 mmol/L Normal 6-16 [facility] Comment on above: Performed By: #### 2 [id number] #### [facility] [address] [place] [address] Calcium [Mass/Vol] 9.1 mg/dL Normal 8.9-11.1 [facility] Comment on above: Performed By: #### 2 294655 #### [facility] [address] [place] [address] Chloride [Moles/Vol] 109 mmol/L Normal 101-111 [facility] Comment on above: Performed By: #### 2 691350 #### [facility] [address] [place] [address] CO2 [Moles/Vol] 27 mmol/L Normal 21-31 [facility] Comment on above: Performed By: #### 2 814257 #### [facility] [address] [place] [address] Creatinine [Mass/Vol] 1.1 mg/dL Normal 0.5-1.3 [facility] Comment on above: Performed By: #### 2 451634 #### [facility] [address] [place] [address] Glucose [Mass/Vol] 85 mg/dL Normal 55-199 [facility] Comment on above: Performed By: #### 2 851738 #### [facility] [address] [place] [address] Potassium [Moles/Vol] 3.8 mmol/L Normal 3.5-5.3 [facility] Comment on above: Performed By: #### 2 030218 #### [facility] [address] [place] [address] Sodium [Moles/Vol] 141 mmol/L Normal 135-145 [facility] Comment on above: Performed By: #### 2 240825 #### [facility] [address] [place] [address] Urea nitrogen [Mass/Vol] 17 mg/dL Normal 5-21 [facility] Comment on above: Performed By: #### 2 685806 #### [facility] [address] [place] [address] Urea nitrogen/Creatinine [Mass ratio] 16 No Units Normal 10-20 [facility] Comment on above: Performed By: #### 2 935374 #### [facility] [address] [place] [address] CBC w/ Auto Diffon 4 Basophils/100 WBC (Bld) 0.6 % Normal 0.0-2.0 [facility] Comment on above: Performed By: #### 2 744443 #### [facility] [address] [place] [address] Basophils/Leukocyte s Auto (Bld) [Pure # fraction] 0.0 E9/L Normal 0.0-0.2 [facility] Comment on above: Performed By: #### 2 674524 #### [facility] [address] [place] [address] Eosinophils (Bld) [#/Vol] 0.1 E9/L Normal 0.0-0.5 [facility] Comment on above: Performed By: #### 2 949275 #### [facility] [address] [place] [address] Eosinophils/100 WBC (Bld) 1.6 % Normal 0.0-8.0 [facility] Comment on above: Performed By: #### 2 055701 #### [facility] [address] [place] [address] Erythrocyte distribution width (RBC) [Ratio] 14.7 % High 10.9-14.2 [facility] Comment on above: Performed By: #### 2 960704 #### [facility] [address] [place] [address] Hematocrit (Bld) [Volume fraction] 27.9 % Low 34.0-46.0 [facility] Comment on above: Performed By: #### 2 564502 #### [facility] [address] [place] [address] Hemoglobin (Bld) [Mass/Vol] 9.8 g/dL Low 12.0-16.0 [facility] Comment on above: Performed By: #### 2 043083 #### [facility] [address] [place] [address] Lymphocytes (Bld) [#/Vol] 1.1 E9/L Normal 1.0-4.0 [facility] Comment on above: Performed By: #### 2 499635 #### [facility] [address] [place] [address] Lymphocytes/100 WBC (Bld) 28.9 % Normal 14.0-50.0 [facility] Comment on above: Performed By: #### 2 613244 #### [facility] [address] [place] [address] MCH (RBC) [Entitic mass] 33.8 pg Normal 27.0-34.0 [facility] Comment on above: Performed By: #### 2 194203 #### [facility] [address] [place] [address] MCHC (RBC) [Mass/Vol] 35.1 g/dL Normal 31.4-36.0 [facility] Comment on above: Performed By: #### 2 943949 #### [facility] [address] [place] [address] MCV (RBC) [Entitic vol] 96.2 fL Normal 80.0-100.0 [facility] Comment on above: Performed By: #### 2 146167 #### [facility] [address] [place] [address] Monocytes (Bld) [#/Vol] 0.6 E9/L Normal 0.2-1.0 [facility] Comment on above: Performed By: #### 2 838001 #### [facility] [address] [place] [address] Neutrophils (Bld) [#/Vol] 2.0 E9/L Normal 2.0-7.5 [facility] Comment on above: Performed By: #### 2 255669 #### [facility] [address] [place] [address] Neutrophils/100 WBC (Bld) 52.8 % Normal 36.0-75.0 [facility] Comment on above: Performed By: #### 2 111339 #### [facility] [address] [place] [address] Platelet 211.0 E9/L Normal 150.0-500.0 [facility] Comment on above: Performed By: #### 2 784187 #### [facility] [address] [place] [address] Platelet mean volume (Bld) [Entitic vol] 7.0 fL Normal 6.4-10.8 [facility] Comment on above: Performed By: #### 2 098161 #### [facility] [address] [place] [address] RBC (Bld) [#/Vol] 2.9 E12/L Low 4.3-5.9 [facility] Comment on above: Performed By: #### 2 177432 #### [facility] [address] [place] [address] WBC corrected for nucl RBC Auto (Bld) [#/Vol] 3.8 E9/L Low 4.0-11.0 [facility] Comment on above: Result Comment: Mae pheral smear review performed. Performed By: #### 2 118977 #### [facility] [address] [place] [address] CHEMISTRYOrdered By: SYSTEM SYSTEM on 03-19-2024 Anion [...] 03-19-2024 eGFR 56 mL/min/1.73 m2 Low >=59 [facility] Comment on above: Order Comment: Order added by Discern Expert. Performed By: #### 1 [id number] #### [facility] [address] [place] [address] Basophils Auto (Bld) [#/Vol] on 02-14-2024 Basophils (Bld) [#/Vol] 0.0 10 3/uL 0.0-0.1 [facility] Basophils/100 WBC Auto (Bld) on 02-14-2024 Basophils/100 WBC (Bld) 0.8 % 0.2-2.0 [facility] Eosinophils/100 WBC Auto (Bl d)on 02-14-2024 Eosinophils/100 WBC (Bld) 1.5 % 0.9-7.0 [facility] Erythrocyte distribution wid th Auto (RBC) [Ratio]on 02-14-2024 Erythrocyte distribution width (RBC) [Ratio] 15.1 % High 11.0-15.0 [facility] Hematocrit Auto (Bld) [Volum e fraction]on 02-14-2024 Hematocrit (Bld) [Volume fraction] 35.4 % Low 36.0-48.0 [facility] Hemoglobin [Mass/volume] in Bloodon 02-14-2024 Hemoglobin (Bld) [Mass/Vol] 11.0 g/dL Low 12.0-16.0 [facility] Iron binding capacity [Mass/ volume] in Serum or Plasmaon 02-14-2024 Iron binding capacity [Mass/Vol] 303.0 ug/dL 250.0-450.0 [facility] Iron saturation [Mass Fracti on] in Serum or Plasmaon 02-14-2024 Iron saturation [Mass fraction] 81.2 % [facility] Laboratory - Chemistry and C hemistry - challengeon 02-14-2024 Cobalamin (Vitamin B12) [Mass/Vol] 225.0 pg/mL 193.0-986.0 [facility] Ferritin [Mass/Vol] 338.0 ng/mL High 8.0-252.0 [facility] Iron [Mass/Vol] 246.0 ug/dL High 50.0-170.0 [facility] Laboratory - Hematology and Cell countson 02-14-2024 Immature granulocytes/100 WBC (Bld) 0.8 % High 0.0-0.5 [facility] Leukocytes [#/volume] correc fito for nucleated erythrocytes in Blood by Automated counon 02-14-2024 WBC corrected for nucl RBC Auto (Bld) [#/Vol] 4.7 10 3/uL 4.0-11.0 [facility] Lymphocytes Auto (Bld) [#/Vo l]on 02-14-2024 Lymphocytes (Bld) [#/Vol] 2.3 10 3/uL 1.2-3.8 [facility] Lymphocytes/100 WBC Auto (Bl d)on 02-14-2024 Lymphocytes/100 WBC (Bld) 48.7 % 20.5-60.0 [facility] MCH Auto (RBC) [Entitic mass ]on 02-14-2024 MCH (RBC) [Entitic mass] 31.9 pg 26.7-34.0 [facility] MCHC Auto (RBC) [Mass/Vol]on 02-14-2024 MCHC (RBC) [Mass/Vol] 31.1 g/dL 29.9-35.2 [facility] MCV Auto (RBC) [Entitic vol] on 02-14-2024 MCV (RBC) [Entitic vol] 102.6 fL High 81.0-99.0 [facility] Monocytes Auto (Bld) [#/Vol] on 02-14-2024 Monocytes (Bld) [#/Vol] 0.6 10 3/uL 0.3-0.8 [facility] Monocytes/100 WBC Auto (Bld) on 02-14-2024 Monocytes/100 WBC (Bld) 13.3 % High 1.7-12.0 [facility] Neutrophils Auto (Bld) [#/Vo l]on 02-14-2024 Neutrophils (Bld) [#/Vol] 1.7 10 3/uL 1.4-6.5 [facility] Neutrophils/100 WBC Auto (Bl d)on 02-14-2024 Neutrophils/100 WBC (Bld) 34.9 % Low 43.0-75.0 [facility] No Panel Informationon 02-13 Eosinophils # (Auto) 0.1 10 3/uL 0.0-0.7 [facility] Immature Granulocyte # (Auto) 0.04 10 3/uL High 0.00-0.03 [facility] Folate 9.40 ng/mL 8.60-58.90 [facility] Platelet mean volume Auto (B ld) [Entitic vol]on 02-14-2024 Platelet mean volume (Bld) [Entitic vol] 9.1 fL Low 9.5-13.5 [facility] Platelets Auto (Bld) [#/Vol] on 02-14-2024 Platelets (Bld) [#/Vol] 197 10 3/uL 150-450 [facility] RBC Auto (Bld) [#/Vol]on RBC (Bld) [#/Vol] 3.45 10 6/uL Low 4.20-5.40 [facility] Basophils Auto (Bld) [#/Vol] on 02-02-2024 Basophils (Bld) [#/Vol] 0.0 10 3/uL 0.0-0.1 [facility] Basophils/100 WBC Auto (Bld) on 02-02-2024 Basophils/100 WBC (Bld) 0.8 % 0.2-2.0 [facility] Eosinophils/100 WBC Auto (Bl d)on 02-02-2024 Eosinophils/100 WBC (Bld) 2.1 % 0.9-7.0 [facility] Erythrocyte distribution wid th Auto (RBC) [Ratio]on 02-02-2024 Erythrocyte distribution width (RBC) [Ratio] 14.2 % 11.0-15.0 [facility] Estimated glomerular filtrat ion rate (GFR) non- Americanon 02-02-2024 GFR/1.73 sq M.predicted among non-blacks MDRD (S/P/Bld) [Vol rate/Area] 51 mL/min/{1.73_m2} Low >=60 [facility] Globulin Calc (S) [Mass/Vol] on 02-02-2024 Globulin (S) [Mass/Vol] 2.9 g/dL [facility] Hematocrit Auto (Bld) [Volum e fraction]on 02-02-2024 Hematocrit (Bld) [Volume fraction] 31.9 % Low 36.0-48.0 [facility] Hemoglobin [Mass/volume] in Bloodon 02-02-2024 Hemoglobin (Bld) [Mass/Vol] 10.2 g/dL Low 12.0-16.0 [facility] Laboratory - Chemistry and C hemistry - challengeon 02-02-2024 Albumin [Mass/Vol] 3.9 g/dL 3.4-5.0 [facility] ALP [Catalytic activity/Vol] 48 U/L 46-116 [facility] ALT [Catalytic activity/Vol] 20 U/L 14-59 [facility] AST [Catalytic activity/Vol] 23 U/L 15-37 [facility] Bilirubin [Mass/Vol] 0.5 mg/dL 0.2-1.0 [facility] Calcium [Mass/Vol] 9.1 mg/dL 8.5-10.1 [facility] Chloride [Moles/Vol] 108 mmol/L High 98-107 [facility] CO2 [Moles/Vol] 24.8 mmol/L 21.0-32.0 [facility] Creatinine [Mass/Vol] 1.09 mg/dL High 0.55-1.02 [facility] GFR/1.73 sq M.predicted MDRD (S/P/Bld) [Vol rate/Area] mL/min/{1.73_m2} >=60 [facility] Glucose [Mass/Vol] 87 mg/dL 74-106 [facility] Potassium [Moles/Vol] 3.9 mmol/L 3.5-5.1 [facility] Protein [Mass/Vol] 6.8 g/dL 6.4-8.2 [facility] Sodium [Moles/Vol] 144 mmol/L 136-145 [facility] Urea nitrogen [Mass/Vol] 17.0 mg/dL 7.0-18.0 [facility] Urea nitrogen/Creatinine [Mass ratio] 15.6 mg/mg [facility] Laboratory - Hematology and Cell countson 02-02-2024 ESR (Bld) [Velocity] 12 mm/h <=30 [facility] Immature granulocytes/100 WBC (Bld) 0.5 % 0.0-0.5 [facility] Leukocytes [#/volume] correc fito for nucleated erythrocytes in Blood by Automated counon 02-02-2024 WBC corrected for nucl RBC Auto (Bld) [#/Vol] 3.8 10 3/uL Low 4.0-11.0 [facility] Lymphocytes Auto (Bld) [#/Vo l]on 02-02-2024 Lymphocytes (Bld) [#/Vol] 1.5 10 3/uL 1.2-3.8 [facility] Lymphocytes/100 WBC Auto (Bl d)on 02-02-2024 Lymphocytes/100 WBC (Bld) 40.3 % 20.5-60.0 [facility] MCH Auto (RBC) [Entitic mass ]on 02-02-2024 MCH (RBC) [Entitic mass] 31.7 pg 26.7-34.0 [facility] MCHC Auto (RBC) [Mass/Vol]on 02-02-2024 MCHC (RBC) [Mass/Vol] 32.0 g/dL 29.9-35.2 [facility] MCV Auto (RBC) [Entitic vol] on 02-02-2024 MCV (RBC) [Entitic vol] 99.1 fL High 81.0-99.0 [facility] Monocytes Auto (Bld) [#/Vol] on 02-02-2024 Monocytes (Bld) [#/Vol] 0.6 10 3/uL 0.3-0.8 [facility] Monocytes/100 WBC Auto (Bld) on 02-02-2024 Monocytes/100 WBC (Bld) 16.1 % High 1.7-12.0 [facility] Neutrophils Auto (Bld) [#/Vo l]on 02-02-2024 Neutrophils (Bld) [#/Vol] 1.5 10 3/uL 1.4-6.5 [facility] Neutrophils/100 WBC Auto (Bl d)on 02-02-2024 Neutrophils/100 WBC (Bld) 40.2 % Low 43.0-75.0 [facility] No Panel Informationon 02-01 Eosinophils # (Auto) 0.1 10 3/uL 0.0-0.7 [facility] Immature Granulocyte # (Auto) 0.02 10 3/uL 0.00-0.03 [facility] Platelet mean volume Auto (B ld) [Entitic vol]on 02-02-2024 Platelet mean volume (Bld) [Entitic vol] 9.3 fL Low 9.5-13.5 [facility] Platelets Auto (Bld) [#/Vol] on 02-02-2024 Platelets (Bld) [#/Vol] 236 10 3/uL 150-450 [facility] RBC Auto (Bld) [#/Vol]on RBC (Bld) [#/Vol] 3.22 10 6/uL Low 4.20-5.40 [facility] Serum or plasma albumin/glob ulin mass ratioon 02-02-2024 Albumin/Globulin [Mass ratio] 1.3 {ratio} [facility] Serum or plasma anion gap de terminationon 02-02-2024 Anion gap [Moles/Vol] 15.1 mmol/L [facility] XR Shoulder - right 2 Viewso n 11-25-2023 Imaging Result: 4 views right shoulder, Grashey/Zanca/outlet/axilla ry, taken today and saved to the permanent medical record. Prosthesis is unchanged in position and alignment. Fracture at the base of the acromion unchanged in appearance. [facility] XR Shoulder - right 2 Viewso n 11-15-2023 Radiology Study observation (narrative) [facility] Office Visiton 11-04-2023 Follow-up visit [id number] Alba Zaidi 1960 F Date Provider Department Center 11/04/2023 Jerry-CAROLINA ZHONG BEAR [facility] Family History Family history unknown: Yes Level of Service:65692 [place] OFFICE/OUTPATIENT ESTABLISHED MOD MDM 30 MIN Reason for Visit and Comments: Follow-up [047649] - 2 year Patient has been taking metoprolol 1 tablet QD Normal [facility] CT Upper Extremity w/o Contr ast [...] Comment on above: Result Comment: Test Ordered: [id number] Interleukin-6, Serum Interleukin-6, Serum <2.5 pg/mL CB [...] endotracheal intubation or mechanical ventilation. Performed at: [facility] [id number] PhD Saturnino Morse Performed By: #### 1 [id number] ####[facility] [address] [place] [address] CBC w/ Auto Diffon 4 Basophil Absolute 0.0 E9/L Normal 0.0-0.2 [facility] Comment on above: Performed By: #### 2 [id number], [id number], [id number] #### [facility] [address] [place] [address] Basophils/100 WBC (Bld) 0.4 % Normal 0.0-2.0 [facility] Comment on above: Performed By: #### 2 [id number], [id number], [id number] #### [facility] [address] [place] [address] Eos Absolute 0.0 E9/L Normal 0.0-0.5 [facility] Comment on above: Performed By: #### 2 302549, [id number], [id number] #### [facility] [address] [place] [address] Eosinophils/100 WBC (Bld) 0.2 % Normal 0.0-8.0 [facility] Comment on above: Performed By: #### 2 887932, [id number], [id number] #### [facility] [address] [place] [address]7895 Erythrocyte distribution width (RBC) [Ratio] 14.3 % High 10.9-14.2 [facility] Comment on above: Performed By: #### 2 248848, [id number], [id number] #### [facility] [address] [place] [address] Hematocrit (Bld) [Volume fraction] 40.0 % Normal 34.0-46.0 [facility] Comment on above: Performed By: #### 2 355377, [id number], [id number] #### [facility] [address] [place] [address] Hemoglobin (Bld) [Mass/Vol] 12.7 g/dL Normal 12.0-16.0 [facility] Comment on above: Performed By: #### 2 609937, [id number], [id number] #### [facility] [address] [place] [address] 13864 Lymph Absolute 0.9 E9/L Low 1.0-4.0 [facility] Comment on above: Performed By: #### 2 588493, 2356611, [id number] #### [facility] [address] [place] [address] Lymphocytes/100 WBC (Bld) 25.2 % Normal 14.0-50.0 [facility] Comment on above: Performed By: #### 2 593457, 7945995, [id number] #### [facility] [address] [place] [address] MCH (RBC) [Entitic mass] 30.6 pg Normal 27.0-34.0 [facility] Comment on above: Performed By: #### 2 138730, 7153735, [id number] #### [facility] [address] [place] [address] MCHC (RBC) [Mass/Vol] 31.7 g/dL Normal 31.4-36.0 [facility] Comment on above: Performed By: #### 2 368664, 3267344, [id number] #### [facility] [address] [place] [address]608 MCV (RBC) [Entitic vol] 96.5 fL Normal 80.0-100.0 [facility] Comment on above: Performed By: #### 2 842275, 9592902, [id number] #### [facility] [address] [place] [address] Russell Absolute 0.3 E9/L Normal 0.2-1.0 [facility] Comment on above: Performed By: #### 2 479746, 2588008, [id number] #### [facility] [address] [place] [address]271 Monocytes/100 WBC (Bld) 7.3 % Normal 4.0-14.0 [facility] Comment on above: Performed By: #### 2 241238, 5057897, [id number] #### [facility] [address] [place] [address]5942 Neutro Absolute 2.3 E9/L Normal 2.0-7.5 [facility] Comment on above: Performed By: #### 2 732644, 6224619, [id number] #### [facility] [address] [place] [address] Neutro Auto 66.9 % Normal 36.0-75.0 [facility] Comment on above: Performed By: #### 2 383312, 1969675, [id number] #### [facility] [address] [place] [address] Platelet 257.0 E9/L Normal 150.0-500.0 [facility] Comment on above: Performed By: #### 2 299130, 7429128, [id number] #### [facility] [address] [place] [address] Platelet mean volume (Bld) [Entitic vol] 7.4 fL Normal 6.4-10.8 [facility] Comment on above: Performed By: #### 2 171835, 1257529, [id number] #### [facility] [address] [place] [address] RBC 4.1 E12/L Low 4.3-5.9 [facility] Comment on above: Performed By: #### 2 006549, 1908332, [id number] #### [facility] [address] [place] [address] WBC 3.4 E9/L Low 4.0-11.0 [facility] Comment on above: Performed By: #### 2 101999, 4000847, [id number] #### [facility] [address] [id number] CHEMISTRYOrdered By: SYSTEM SYSTEM on 09-06-2023 CRP mg/dL Normal <=1.9mg/dL Remisol Chem CRPon 09-06-2023 CRP [Mass/Vol] mg/L Normal <=1.9 [facility] Comment on above: Performed By: #### 2 873937, 0860724, [id number] #### [facility] [address] [place] [address] Consent for Treatmenton 08-12 Consent for Treatment [id number] Normal [facility] HEMATOLOGYOrdered [...] Normal 80.0 - 100.0 fL Remisol Heme Russell Absolute 0.3 E9/L Normal 0.2 - 1.0 [...] 14 mm/h Normal 0 - 34 mm/hr [facility] HemeAuto[facility] Miscellaneous-LCon 09-06 Test Code 725477 Invalid Interpretation Code [facility] Comment on above: Performed By: #### 1 [id number] ####[facility] [address] [place] [address] Test Name interleukin 6 Invalid Interpretation Code [facility] Comment on above: Performed By: #### 1 [id number] ####[facility] [address] [place] [address] Physician Orderon 09-06-2023 Physician Order [id number] Normal [facility] Reference Laboratory Testing Ordered By: Jojo Gonsales on 09-06-2023 Test Code 621766 1 Invalid Interpretation Code [facility] SendOutsSS Test Name interleukin 6 Invalid Interpretation Code [facility] SendOuts[facility] Sed Rate Automatedon 024 ESR (Bld) [Velocity] 14 mm/h Normal 0-34 [facility] Comment on above: Performed By: #### 2 891778, [id number], [id number] #### [facility] [address] [place] [address] Physician Orderon 08-31-2023 Physician Order [id number] Normal [facility] Basophils Auto (Bld) [#/Vol] on 08-30-2023 Basophils (Bld) [#/Vol] 0.0 10 3/uL 0.0-0.1 [facility] Basophils/100 WBC Auto (Bld) on 08-30-2023 Basophils/100 WBC (Bld) 0.8 % 0.2-2.0 [facility] Cholesterol in LDL Calc [Mas s/Vol]on 08-30-2023 Cholesterol in LDL [Mass/Vol] 152.0 mg/dL [facility] Comment on above: <100 mg/dl [id number] 0-129 mg/dl NEAR OR ABOVE [id number] mg/dl BORDERLINE [id number] mg/dl HIGH>190 mg/dl VERY HIGH Cholesterol in VLDL Calc [Ma ss/Vol]on 08-30-2023 Cholesterol in VLDL [Mass/Vol] 20.2 mg/dL [facility] Eosinophils/100 WBC Auto (Bl d)on 08-30-2023 Eosinophils/100 WBC (Bld) 4.2 % 0.9-7.0 [facility] Erythrocyte distribution wid th Auto (RBC) [Ratio]on 08-30-2023 Erythrocyte distribution width (RBC) [Ratio] 13.4 % 11.0-15.0 [facility] Estimated glomerular filtrat ion rate (GFR) non- Americanon 08-30-2023 GFR/1.73 sq M.predicted among non-blacks MDRD (S/P/Bld) [Vol rate/Area] 59 mL/min/{1.73_m2} >=60 [facility] Globulin Calc (S) [Mass/Vol] on 08-30-2023 Globulin (S) [Mass/Vol] 3.4 g/dL [facility] Hematocrit Auto (Bld) [Volum e fraction]on 08-30-2023 Hematocrit (Bld) [Volume fraction] 39.5 % 36.0-48.0 [facility] Hemoglobin [Mass/volume] in Bloodon 08-30-2023 Hemoglobin (Bld) [Mass/Vol] 12.5 g/dL 12.0-16.0 [facility] Laboratory - Chemistry and C hemistry - challengeon 08-30-2023 Albumin [Mass/Vol] 3.7 g/dL 3.4-5.0 [facility] ALP [Catalytic activity/Vol] 45 U/L 46-116 [facility] ALT [Catalytic activity/Vol] 23 U/L 14-59 [facility] AST [Catalytic activity/Vol] 21 U/L 15-37 [facility] Bilirubin [Mass/Vol] 0.4 mg/dL 0.2-1.0 [facility] Calcium [Mass/Vol] 9.0 mg/dL 8.5-10.1 [facility] Chloride [Moles/Vol] 106 mmol/L 98-107 [facility] Cholesterol [Mass/Vol] 246 mg/dL <=200 [facility] Cholesterol in HDL [Mass/Vol] 74 mg/dL 40-60 [facility] Comment on above: > or =60 mg/dl - LOW CARDIOVASCULAR RISK<40 mg/dl - HIGH CARDIOVASCULAR RISK CO2 [Moles/Vol] 25.5 mmol/L 21.0-32.0 [facility] Creatinine [Mass/Vol] 0.96 mg/dL 0.55-1.02 [facility] GFR/1.73 sq M.predicted MDRD (S/P/Bld) [Vol rate/Area] mL/min/{1.73_m2} >=60 [facility] Glucose [Mass/Vol] 86 mg/dL 74-106 [facility] Potassium [Moles/Vol] 3.8 mmol/L 3.5-5.1 [facility] Protein [Mass/Vol] 7.1 g/dL 6.4-8.2 [facility] Sodium [Moles/Vol] 142 mmol/L 136-145 [facility] Triglyceride [Mass/Vol] 101 mg/dL <=150 [facility] TSH Qn 1.531 m[IU]/L 0.358-3.740 [facility] Urea nitrogen [Mass/Vol] 20.0 mg/dL 7.0-18.0 [facility] Urea nitrogen/Creatinine [Mass ratio] 20.8 mg/mg [facility] Laboratory - Hematology and Cell countson 08-30-2023 ESR (Bld) [Velocity] 16 mm/h <=30 [facility] Immature granulocytes/100 WBC (Bld) 0.3 % 0.0-0.5 [facility] Leukocytes [#/volume] correc fito for nucleated erythrocytes in Blood by Automated counon 08-30-2023 WBC corrected for nucl RBC Auto (Bld) [#/Vol] 3.8 10 3/uL 4.0-11.0 [facility] Lymphocytes Auto (Bld) [#/Vo l]on 08-30-2023 Lymphocytes (Bld) [#/Vol] 1.7 10 3/uL 1.2-3.8 [facility] Lymphocytes/100 WBC Auto (Bl d)on 08-30-2023 Lymphocytes/100 WBC (Bld) 44.8 % 20.5-60.0 [facility] MCH Auto (RBC) [Entitic mass ]on 08-30-2023 MCH (RBC) [Entitic mass] 31.1 pg 26.7-34.0 [facility] MCHC Auto (RBC) [Mass/Vol]on 08-30-2023 MCHC (RBC) [Mass/Vol] 31.6 g/dL 29.9-35.2 [facility] MCV Auto (RBC) [Entitic vol] on 08-30-2023 MCV (RBC) [Entitic vol] 98.3 fL 81.0-99.0 [facility] Monocytes Auto (Bld) [#/Vol] on 08-30-2023 Monocytes (Bld) [#/Vol] 0.5 10 3/uL 0.3-0.8 [facility] Monocytes/100 WBC Auto (Bld) on 08-30-2023 Monocytes/100 WBC (Bld) 14.1 % 1.7-12.0 [facility] Neutrophils Auto (Bld) [#/Vo l]on 08-30-2023 Neutrophils (Bld) [#/Vol] 1.4 10 3/uL 1.4-6.5 [facility] Neutrophils/100 WBC Auto (Bl d)on 08-30-2023 Neutrophils/100 WBC (Bld) 35.8 % 43.0-75.0 [facility] No Panel Informationon 08-30 Eosinophils # (Auto) 0.2 10 3/uL 0.0-0.7 [facility] Immature Granulocyte # (Auto) 0.01 10 3/uL 0.00-0.03 [facility] Platelet mean volume Auto (B ld) [Entitic vol]on 08-30-2023 Platelet mean volume (Bld) [Entitic vol] 9.1 fL 9.5-13.5 [facility] Platelets Auto (Bld) [#/Vol] on 08-30-2023 Platelets (Bld) [#/Vol] 181 10 3/uL 150-450 [facility] RBC Auto (Bld) [#/Vol]on RBC (Bld) [#/Vol] 4.02 10 6/uL 4.20-5.40 [facility] Serum or plasma albumin/glob ulin mass ratioon 08-30-2023 Albumin/Globulin [Mass ratio] 1.1 {ratio} [facility] Serum or plasma anion gap de terminationon 08-30-2023 Anion gap [Moles/Vol] 14.3 mmol/L [facility] Serum or plasma total choles terol/high density lipoprotein (HDL) cholesterol mass albina 08-30-2023 Cholesterol.total/C holesterol in HDL [Mass ratio] 3.3 {ratio} [facility] Comment on above: 3.3 - [...] No obvious fractures at the coracoid process. [facility] XR Shoulder - right 2 Viewso n 08-18-2023 Radiology Study observation (narrative) [facility] IntraOperative Documentson 1 IntraOperative Documents [id number] Normal [facility] Auto Diffon 04-07-2023 Basophils/100 WBC (Bld) 0.2 % Normal 0.0-2.0 [facility] Comment on above: Order Comment: Order Added by Discern Expert. Performed By: #### 2 197724, 0907961, 6914320, 4780273, [id number], [id number] #### [facility] [address] [place] [address] 16551 Basophils/Leukocyte s Auto (Bld) [Pure # fraction] 0.0 E9/L Normal 0.0-0.2 [facility] Comment on above: Order Comment: Order Added by Discern Expert. Performed By: #### 2 177006, 5824372, 5932372, [id number], [id number], [id number] #### [facility] [address] [place] [address] 32866 Eosinophils/100 WBC (Bld) 0.0 % Normal 0.0-8.0 [facility] Comment on above: Order Comment: Order Added by Discern Expert. Performed By: #### 2 321657, 9817232, 0208553, 2645847, [id number], [id number] #### [facility] [address] [place] [address] 11547 Eosinophils/Leukocy elli Auto (Bld) [Pure # fraction] 0.0 E9/L Normal 0.0-0.5 [facility] Comment on above: Order Comment: Order Added by Discern Expert. Performed By: #### 2 331746, 1891006, 2037471, 0235367, 72875696, 7949320 #### [facility] [address] [place] [address] Lymphocytes/100 WBC (Bld) 7.9 % Low 14.0-50.0 [facility] Comment on above: Order Comment: Order Added by Discern Expert. Performed By: #### 2 283847, 7223971, 9616449, 5025150, 25084052, 5877400 #### [facility] [address] [place] [address]65[address] Lymphocytes/Leukocy elli Auto (Bld) [Pure # fraction] 0.8 E9/L Low 1.0-4.0 [facility] Comment on above: Order Comment: Order Added by Discern Expert. Performed By: #### 2 385849, 5625765, 9963301, 1386031, 62345863, 7423333 #### [facility] [address] [place] [address]881 Monocytes/100 WBC (Bld) 14.0 % Normal 4.0-14.0 [facility] Comment on above: Order Comment: Order Added by Discern Expert. Performed By: #### 2 291698, 0426953, 6377303, 8111074, 38135682, 3245664 #### [facility] [address] [place] [address] Monocytes/Leukocyte s Auto (Bld) [Pure # fraction] 1.3 E9/L High 0.2-1.0 [facility] Comment on above: Order Comment: Order Added by Discern Expert. Performed By: #### 2 940690, 6611967, 2273564, 7817069, 58480147, 2347540 #### [facility] [address] [place] [address] Neutrophils/100 WBC (Bld) 77.9 % High 36.0-75.0 [facility] Comment on above: Order Comment: Order Added by Discern Expert. Performed By: #### 2 012651, 3577568, 8192056, 6885539, 27729684, 4091563 #### [facility] [address] [place] [address] Neutrophils/Leukocy elli Auto (Bld) [Pure # fraction] 7.5 E9/L Normal 2.0-7.5 [facility] Comment on above: Order Comment: Order Added by Discern Expert. Performed By: #### 2 924180, 6882938, 6831062, 4580667, 58686166, 5890648 #### [facility] [address] [place] [address] BUNon 04-07-2023 Urea nitrogen [Mass/Vol] 20 mg/dL Normal 5-21 [facility] Comment on above: Performed By: #### 2 875841, 1611292, 8916733, 4269698, 87396521, 0042972 #### [facility] [address] [place] [address] CBC w/ Auto Diffon Erythrocyte distribution width (RBC) [Ratio] 14.6 % High 10.9-14.2 [facility] Comment on above: Performed By: #### 2 677756, 5033599, 1048033, 9723583, 19350597, 7536819 #### [facility] [address] [place] [address] Hematocrit (Bld) [Volume fraction] 29.7 % Low 34.0-46.0 [facility] Comment on above: Performed By: #### 2 569832, 8445545, 5921849, 0347772, 33465565, 2858181 #### [facility] [address] [place] [address] Hemoglobin (Bld) [Mass/Vol] 10.0 g/dL Low 12.0-16.0 [facility] Comment on above: Performed By: #### 2 044096, 0577038, 1148897, 3926764, 00407072, 7684126 #### [facility] [address] [place] [address]378 MCH (RBC) [Entitic mass] 32.5 pg Normal 27.0-34.0 [facility] Comment on above: Performed By: #### 2 921586, 3250521, 2416304, 3117186, 46540515, 8372382 #### [facility] [address] [place] [address]70 MCHC (RBC) [Mass/Vol] 33.6 g/dL Normal 31.4-36.0 [facility] Comment on above: Performed By: #### 2 818332, 5300886, 0323457, 8441159, 29380214, 2464119 #### [facility] [address] [place] [address]3973 MCV (RBC) [Entitic vol] 96.7 fL Normal 80.0-100.0 [facility] Comment on above: Performed By: #### 2 386454, 1868048, 4237807, 4940643, 58354065, 0447253 #### [facility] [address] [place] [address] Platelet mean volume (Bld) [Entitic vol] 7.1 fL Normal 6.4-10.8 [facility] Comment on above: Performed By: #### 2 985879, 4119409, 7341652, 6483300, 52077345, 1835958 #### [facility] [address] [place] [address] Platelets (Bld) [#/Vol] 215.0 E9/L Normal 150.0-500.0 [facility] Comment on above: Performed By: #### 2 439962, 0158277, 5885014, 6465181, 79093891, 9329637 #### [facility] [address] [place] [address] RBC (Bld) [#/Vol] 3.1 E12/L Low 4.3-5.9 [facility] Comment on above: Performed By: #### 2 732341, 8519964, 0303183, 3232508, 06068268, 8593513 #### [facility] [address] [place] [address] WBC corrected for nucl RBC Auto (Bld) [#/Vol] 9.6 E9/L Normal 4.0-11.0 [facility] Comment on above: Performed By: #### 2 488365, 5708106, 8237691, 9694416, 44048419, 5094432 #### [facility] [address] [place] [address] CHEMISTRYOrdered By: SYSTEM SYSTEM on 04-07-2023 Anion gap [Moles/Vol] 6 mmol/L Normal 6 - 16 mEq/L FT Remisol Chloride [Moles/Vol] 118 mmol/L High 101 - 111 mmol/L [facility] Remisol CO2 [Moles/Vol] 23 mmol/L Normal 21 - 31 mmol/L [facility] Remisol Creatinine [Mass/Vol] 0.9 mg/dL Normal 0.5 - 1.3 mg/dL [facility] Remisol GFR/1.73 sq M.predicted among non-blacks MDRD (S/P/Bld) [Vol rate/Area] 72 mL/min/1.73 m2 Normal >=59mL/min/ 1.73 m2 [facility] Comment on above: Interpretive Data: C hronic kidney disease could be indicated at eGFR's of less than 60 mL/min/1.73m2. Kidney failure is indicated at less than 15 mL/min/1.73m2. Potassium [Moles/Vol] 4.0 mmol/L Normal 3.5 - 5.3 mmol/L [facility] Remisol Sodium [Moles/Vol] 143 mmol/L Normal 135 - 145 mmol/L [facility] Remisol Urea nitrogen [Mass/Vol] 20 mg/dL Normal 5 - 21 mg/dL [facility] Remisol Consent for Anesthesiaon Consent for Anesthesia [id number]#[id number]:127 Normal [facility] Creatinineon 04-07-2023 Creatinine [Mass/Vol] 0.9 mg/dL Normal 0.5-1.3 [facility] Comment on above: Performed By: #### 2 576858, 3666325, 1501558, 7822920, 28207730, 8709477 ####[facility] [address] [place] [address] Discharge Instructionson Discharge Instructions [id number]#[id number]:127 Normal [facility] Discharge Note-Nursingon Discharge Note-Nursing ZAIDIRADHA :1960 Visit Date:04/06/2023 Inpatient Discharge Instructions Your Care Team Admitting Physician - Jordan Yuan DO Referring Physician - Jordan uYan DO Reason for Your Visit OA RIGHT [...] Pending Diagnostic Test Results None Pharmacy Information [facility] New Follow Up Appointments after Discharge Follow Up with Jordan Yuan When: Where: [address] [place] [address]- Business (1) Follow Up with JOHN ASHBY When: In 0 days Where: [address] [facility], [place] [address]- Business (1) Medications What How Much When Instructions Next Dose Changed acetaminophen-oxycodone (Percocet 5 mg-325 mg oral tablet) See instructions 1-2 tab(s) Oral q4hr Pickup at [facility]/pharmacy #6177 Next dose due after 10am Unchanged buPROPion (Wellbutrin XL 300 mg/ 24 hours Tab-ER) 1 Tablets By Mouth 2 times a day 04/07/23 @ 9pm Unchanged celecoxib (CeleBREX 100 mg Cap) 1 Capsules By Mouth 2 times a day as needed for for pain Pickup at [facility]/pharmacy #6177 04/07/23 @ 9pm Unchanged cephalexin (Keflex 500 mg Cap) 1 Capsules By Mouth Every 8 hours Duration: 7 Days Pickup at [facility]/pharmacy #6177 04/07/23 @ 2pm and bedtime Unchanged docusate (Colace 100 mg Cap) 1 Capsules By Mouth 2 times a day as needed for for constipation Pickup at [facility]/pharmacy #6177 04/07/23 @ 9pm Unchanged leflunomide (Arava [...] day 04/08/23 @ 9am Pharmacy Information [facility]/pharmacy #6177: [address] [place], [place] [phone] Test Results CBC BMP WBC: 9.6 E9/L [...] Lateralized/ 24, Shoulder Implant 04/06/2023 [facility] humeral Stem Size 9, Shoulder Implant 04/06/2023 [...] Inpatient Clinical Summaryon 04-07-2023 Inpatient Clinical Summary [address] [address] Clinical Summary Person Information: Name: SHIRA ZAIDIYLL Levy Age: 62 Years : 1960 Sex: Female PCP: JOHN ASHBY DO Marital Status: Phone: [phone] Race: White Ethnicity: Non- or Language: Latvian Visit Id: Visit Reason: OA RIGHT SHOULDER Speciality: Acuity: Enc Type: Observation Med Service: Medical Arrival: 04/06/2023 06:09:55 Discharge: Dispo Type: Address: [address] [place] [address] [address] [place] [phone] Provider Notes: Patient: RADHA ZAIDI Age: 62 [...] Follow up: With: Address: When: [place] [address] Business (1) 04/19/2023 2:15 PM With: Address: When: JOHN ASHBY [address] [place] [address] Business (1) Patient Education Information: Levy Yuan. - Shoulder Replacement (Custom) [facility] Inpatient Patient Summaryon 04-07-2023 Inpatient Patient Summary [address] [address] Patient Discharge Instructions PERSON INFORMATION [...] Follow up: With: Address: When: [place] [address] Business (1) 04/19/2023 2:15 PM With: Address: When: JOHN ASHBY [address] [place] [address] Business (1) In the event that [...] Medications to Continue Taking That Have Changed [facility]/pharmacy #6177, [address], [place] [phone], [phone] START: acetaminophen-oxycodone (Percocet 5 mg-325 mg oral tablet) 1-2 tab(s) Oral q4hr. Refills: 0. Last Dose: Ne xt Dose: STOP: acetaminophen-oxycodone (Percocet 5 mg-325 mg oral tablet) 1 Tablets By Mouth 3 times a day. Medications to Continue with No Changes [facility]/pharmacy #6177, [address], [place] [phone], [phone] celecoxib (CeleBREX 100 mg Cap) 1 Capsules [...] Lu (419) (more content not included)... Normal [facility] IntraOperative Documentson 0 04-07-2023 IntraOperative Documents [id number]#1.00CD:127 Normal [facility] IntraOperative Documents [id number]#1.00CD:127 Normal [facility] Lyteson 04-07-2023 Anion gap [Moles/Vol] 6 mmol/L Normal 6-16 [facility] Comment on above: Performed By: #### 2 239052, 4565553, 1599043, 0670448, 99447886, 1798236 ####[facility] [address] [place] [address] Chloride [Moles/Vol] 118 mmol/L High 101-111 [facility] Comment on above: Performed By: #### 2 091038, 6899491, 3185190, 8354806, 04907570, 9826389 ####[facility] [address] [place] [address] CO2 [Moles/Vol] 23 mmol/L Normal 21-31 [facility] Comment on above: Performed By: #### 2 710367, 1286445, 4141501, 0432994, 10230791, 6238124 ####[facility] [address] [place] [address] Potassium [Moles/Vol] 4.0 mmol/L Normal 3.5-5.3 [facility] Comment on above: Performed By: #### 2 282444, 5398866, 9727500, 8271282, 47462335, 5788373 ####[facility] [address] [place] [address] Sodium [Moles/Vol] 143 mmol/L Normal 135-145 [facility] Comment on above: Performed By: #### 2 572227, 7479310, 5779338, 9874300, 35134675, 5442540 ####[facility] [address] [place] [address] Main OR Intraoperative Recor don 04-07-2023 Main OR Intraoperative Record IntraOp Document Type FT Summary Primary Physician: Jordan Yuan DO Finalized Date/Time: 04/07/23 14:30:58 Pt. Name: RADHA ZAIDI/Sex: 1960 Female Med Rec #: [id number] Physician: Jordan Yuan DO Financial #: [id number] Pt. 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 Last Modified By: Wanda MARI, Sharmaine Goldman RN, Dennis Goldman RN, Dennis Curry 04/07/23 14:28:51 04/06/23 11:35:47 04/06/23 11:35:47 Entry 4 Entry 5 Entry 6 Case Attendee Valerie MARI, Eddie Mann, John De Los Santos CST Role Performed Scrub - Primary Scrub - Primary LOGISTICS SYSTEM ENGINEER/SA Time In 04/06/23 09:32:00 04/06/23 09:32:00 04/06/23 [...] munoz Last Modified By: Susi HARO, Dennis Goldman RN, Dennis Curry 04/06/23 11:35:47 [...] Yuan DO, Krupp RN, Dennis Curry, Valerie LOGISTICS SYSTEM ENGINEER, Johnathan Hernandez Sydney A, Wilhelm CST, Alfredo [...] RADHA ZAIDI/Sex: 1960 Female Med Rec #: [id number] Physician: Jordan Yuan DO Financial #: [id number] Pt. Type: O Room/Bed: [place] [address] Admit/Disch: 04/06/23 06:09:55 - Institution: Case Times [...] Texton 0 04-07-2023 Patient Education - Text [place], [place] [facility] DISCHARGE INSTRUCTIONS: SHOULDER REPLACEMENT [...] persistent vomiting. Jordan Yuan DO [facility] [address] [place] [address] Reviewed: [facility] Preoperative Documentson Preoperative Documents [id number]#[id number]:127 [facility] Progress Note-Physicianon Progress Note-Physician Patient: RADHA ZAIDI [...] Order added by Discern Expert. Result Comment: Electrical Maintenance Mechanic dina kidney disease could be indicated at eGFR's of less than 60 mL/min/1.73m2. Kidney failure is indicated at less than 15 mL/min/1.73m2. Performed By: #### 2 639386, 6196704, 9330708, 9888833, 58781680, 2323255 ####[facility] [address] [place] [address] ABO/Rhon 04-06-2023 ABO/Rh Positive Invalid Interpretation Code [facility] Comment on above: Performed By: #### 1 4443576, 43695897, 62407516, 0225632 ####[place] [address] [place] [address] ABO/Rh History Checkon 04-06 ABO/Rh History Check Verified Hx Blood Type Normal [facility] Comment on above: Performed By: #### 1 0388417, 26165176, 53176075, 2170242 ####[facility] [address] [place] [address] ABSCon 04-06-2023 ABSC Gel Interp Negative Normal [facility] Comment on above: Performed By: #### 1 5420729, 93050440, 38968869, 8702057 ####[facility] [address] [place] [address] BLOOD BANKOrdered By: Andra Nunez on 04-06-2023 ABO/Rh Interp Positive Invalid Interpretation Code [facility] BB Subsection ABSC Gel Interp Negative (04/06/23 7:23 AM) Normal [facility] BB Subsection Blood Bank ID#on 04-06-2023 BBID# [id number] Invalid Interpretation Code [facility] Comment on above: Performed By: #### 1 9977232, 91886909, 06014992, 0971672 ####[facility] [address] [place] [address] Consent for Treatmenton 03-12 Consent for Treatment [id number]#1.00CD:127 Normal [facility] H&P Updateon 04-06-2023 H&P Update [id number]#1.00CD:127 Normal [facility] Insurance Correspondence Off iceon 04-06-2023 Insurance Correspondence Office [id number]#1.00CD:127 Normal [facility] Main OR Preoperative Recordo n 04-06-2023 Main OR Preoperative Record PreOp Document Type FT Summary Primary Physician: Jordan Yuan DO Finalized Date/Time: 04/06/23 09:32:24 Pt. Name: RADHA ZAIDI/Sex: 1960 Female Med Rec #: [id number] Physician: Jordan Yuan DO Financial #: [id number] Pt. Type: A Room/Bed: Admit/Disch: 04/06/23 06:09:55 - Institution: Case Times PreOp FT Pre-Care Text: Verifies consent for planned procedure, identifies individual values and wishes concerning care, includes family members in perioperative teaching Entry 1 Patient Times. In Pre Surgery 04/06/23 06:30:00 Out Pre Surgery 04/06/23 09:30:00 Outcomes Met? Yes Last Modified By: Susi Dennis HARO 04/06/23 09:32:22 Post-Care Text: The patient participates in decisions affecting his or her perioperative plan of care Finalized By: Dennis Goldman RN Document Signatures Signed By: Dennis Goldman RN 04/06/23 09:32 Normal [facility] Monitor Recordon 04-06-2023 Monitor Record [id number]#1.00CD:127 Normal [facility] Monitor Record [id number]#1.00CD:127 Normal [facility] Monitor Record [id number]#1.00CD:127 Normal [facility] Operative Reporton Operative Report Patient: ELIZABET ZAIDI Age: 62 years Sex: Female : 1960 Associated Diagnoses: None Author: Jordan Yuan DO DATE OF SURGERY: 04/06/2023 SURGEON: Jordan Yuan D.O. OPHTHALMOLOGY ASSISTANT: Anival Flores CFA PREOPERATIVE DIAGNOSIS: Massive rotator [...] 3. size +6 humeral insert 4. [facility]vers [place] size 9 stem with 36 (neutral) Suturecup OPERATIVE INDICATIONS: Radha is a 62-year-old zoilq-ffbt-vceealth female who has had persistent right shoulder [...] Using maximal sterile barrier technique per current [facility] guidelines including hand hygeine, Guidance (Ultrasound used [...] The patient tolerated the procedure as expected. [facility] Comment on above: Result Comment: Elec tronically Signed By: Yanick Rai DO\.br\Date and Time Signed: 04/06/23 08:44 EDT Progress Note-Physicianon Progress Note-Physician Patient: RADHA ZAIDI Age: 62 years Sex: Female : 1960 Associated Diagnoses: None Author: Yanick Rai DO Postoperative Information Postoperative disposition: Postoperative disposition: To PACU. Optimetrix number: Optimetrix number [id number]. Anesthetic utilized: General. Regional: Interscalene Block. 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 Family History: Primary malignant neoplasm of prostate Father Acute myocardial infarction Mother Procedure history: Cervical laminectomy (0385816805). Amputation of finger (482426381). Removal of lung, Partial (55185). Open reduction and internal fixation of fracture Leg (499117776). Foot surgery (8885175141). Lumbar discectomy (946039285). Social History Social & Psychosocial Habits Alcohol [...] 06:38) Heart Rate Apical 68 bpm (APR 06:39) SBP 119 mmHg (APR 06 06:39) DBP 75 mmHg (APR 06:39) SpO2 95 % (APR 06:) Airway: Mallampati classification: II (soft palate, fauces, [...] for Procedure/Surger yon 04-05-2023 Consent for Procedure/Surgery [id number]#1.00CD:127 Normal [facility] CT [...] Comment on above: Performed By: #### 1 2497868 ####[facility] [address] [place] [address] BLOOD BANKOrdered By: Andra Longoria on 03-24-2023 ABO/Rh Retype Interp Positive Invalid Interpretation Code [facility] BB Subsection BUNon 03-24-2023 Urea nitrogen [Mass/Vol] 28 mg/dL High 5-21 [facility] Comment on above: Performed By: #### 1 3582378, 2636350, 4030577, 7984280, 1173927, 8325990 ####[facility] [address] [place] [address] CBC w/Indiceson 03-24-2023 Erythrocyte distribution width (RBC) [Ratio] 14.5 % High 10.9-14.2 [facility] Comment on above: Performed By: #### 1 9087910, 8855624, 7938378, 0894708, 3785852, 7837832 ####[facility] [address] [place] [address] Hematocrit (Bld) [Volume fraction] 35.9 % Normal 34.0-46.0 [facility] Comment on above: Performed By: #### 1 6951310, 0787937, 4691387, 0511658, 1650029, 5242235 ####[facility] [address] [place] [address] Hemoglobin (Bld) [Mass/Vol] 11.9 g/dL Low 12.0-16.0 [facility] Comment on above: Performed By: #### 1 7208663, 6375339, 2598584, 1363465, 7609610, 0820976 ####[facility] [address] [place] [address] MCH (RBC) [Entitic mass] 32.3 pg Normal 27.0-34.0 [facility] Comment on above: Performed By: #### 1 3985723, 6174458, 0693112, 9423349, 5222800, 3780201 ####[place] [address] [place] [address] MCHC (RBC) [Mass/Vol] 33.1 g/dL Normal 31.4-36.0 [facility] Comment on above: Performed By: #### 1 3957308, 5487633, 5523827, 4592634, 5680534, 7101548 ####[place] [address] MCV (RBC) [Entitic vol] 97.4 fL Normal 80.0-100.0 [facility] Comment on above: Performed By: #### 1 1311979, 9088855, 9350950, 9988331, 8017942, 9669681 ####[place] [address] [place] [address] Platelet mean volume (Bld) [Entitic vol] 7.4 fL Normal 6.4-10.8 [facility] Comment on above: Performed By: #### 1 0838821, 1852473, 2721351, 7219755, 9612482, 8002269 ####[place] [address] Platelets (Bld) [#/Vol] 207.0 E9/L Normal 150.0-500.0 [facility] Comment on above: Performed By: #### 1 6459023, 4393424, 5571079, 3945813, 0135565, 9876178 ####[address] [address] RBC (Bld) [#/Vol] 3.7 E12/L Low 4.3-5.9 [facility] Comment on above: Performed By: #### 1 2537327, 2491857, 4630562, 2800821, 5425835, 0568203 ####[facility] [address] [place] [address] WBC corrected for nucl RBC Auto (Bld) [#/Vol] 3.5 E9/L Low 4.0-11.0 [facility] Comment on above: Performed By: #### 1 0308683, 1442384, 1339256, 8318423, 8073248, 2661057 ####[facility] [address] [place] [address] CHEMISTRYOrdered By: SYSTEM SYSTEM on 03-24-2023 Anion gap [Moles/Vol] 12 mmol/L Normal 6 - 16 mEq/L [facility] Remisol Chloride [Moles/Vol] 111 mmol/L Normal 101 - 111 mmol/L [facility] Remisol CO2 [Moles/Vol] 20 mmol/L Low 21 - 31 mmol/L [facility] Remisol Creatinine [Mass/Vol] 1.2 mg/dL Normal 0.5 - 1.3 mg/dL [facility] Remisol GFR/1.73 sq M.predicted among non-blacks MDRD (S/P/Bld) [Vol rate/Area] 51 mL/min/1.73 m2 Low >=59mL/min/ 1.73 m2 [facility] Chem S Glucose [Mass/Vol] 84 mg/dL Normal 55 - 199 mg/dL [facility] Remisol Potassium [Moles/Vol] 4.2 mmol/L Normal 3.5 - 5.3 mmol/L [facility] Remisol Sodium [Moles/Vol] 139 mmol/L Normal 135 - 145 mmol/L [facility] Remisol Urea nitrogen [Mass/Vol] 28 mg/dL High 5 - 21 mg/dL [facility] Remisol Consent for Treatmenton 03-11 Consent for Treatment [id number]#[id number]:127 Normal [facility] Creatinineon 03-24-2023 Creatinine [Mass/Vol] 1.2 mg/dL Normal 0.5-1.3 [facility] Comment on above: Performed By: #### 1 [id number], [id number], 5891721, 1770064, 0450444, 1715890 ####[facility] [address] [place] [address] Glucoseon 03-24-2023 Glucose [Mass/Vol] 84 mg/dL Normal 55-199 [facility] Comment on above: Performed By: #### 1 [id number], 5335170, 0303728, 8828449, 3842378, 5238950 ####[facility] [address] [place] [address] HEMATOLOGYOrdered By: Andra Longoria on 03-24-2023 Erythrocyte [...] Anion gap [Moles/Vol] 12 mmol/L Normal 6-16 [facility] Comment on above: Performed By: #### 1 [id number], 8445969, 3908994, 3067714, 6261650, 9028911 ####[facility] [address] [place] [address] Chloride [Moles/Vol] 111 mmol/L Normal 101-111 [facility] Comment on above: Performed By: #### 1 [id number], 6638370, 6085876, 8500718, 2060857, 5402150 ####[facility] [address] [place] [address] CO2 [Moles/Vol] 20 mmol/L Low 21-31 [facility] Comment on above: Performed By: #### 1 4191366, 3285379, 1216042, 7139974, 8525977, 9012558 ####[facility] [address] [place] [address] Potassium [Moles/Vol] 4.2 mmol/L Normal 3.5-5.3 [facility] Comment on above: Performed By: #### 1 9561026, 7077868, 4313748, 2774172, 2620693, 1490850 ####[facility] [address] [place] [address] Sodium [Moles/Vol] 139 mmol/L Normal 135-145 [facility] Comment on above: Performed By: #### 1 6505926, 5228964, 3222168, 0744749, 3360511, 9131970 ####[facility] [address] [place] [address] UA With Cult Reflexon 2022 Bilirubin Ql (U) Negative Normal Negative [facility] Comment on above: Performed By: #### 1 [id number] #### [facility] Laboratory [address] [place] [address] Clarity (U) CLEAR Normal Clear [facility] Comment on above: Performed By: #### 1 [id number] #### [facility] [address] [place] [address] Color (U) YELLOW Normal Yellow [facility] Comment on above: Performed By: #### 1 [id number] #### [facility] [address] [place] [address] Epithelial cells.squamous LM.HPF (Urine sed) [#/Area] 0-2 Normal 0-2 [facility] Comment on above: Performed By: #### 1 [id number] #### [facility] [address] [place] [address] Fine Granular Casts LM Ql (Urine sed) 0-3 Normal [facility] Comment on above: Performed By: #### 1 [id number] #### [facility] [address] [place] [address] Glucose Test strip (U) [Mass/Vol] Negative Normal Negative [facility] Comment on above: Performed By: #### 1 [id number] #### [facility] [address] [place] [address] Hemoglobin Ql (U) Negative Normal Negative [facility] Comment on above: Performed By: #### 1 [id number] #### [facility] [address] [place] [address] Ketones (U) [Mass/Vol] Negative Normal Negative [facility] Comment on above: Performed By: #### 1 [id number] #### [facility] [address] [place] [address] Cochrane.plasma/Lith ium.RBC (Bld) [Mass ratio] 0-3 Normal 0-3 [facility] Comment on above: Performed By: #### 1 [id number] #### [facility] [address] [place] [address] Mucus Ql (Urine sed) TRACE Normal [facility] Comment on above: Performed By: #### 1 [id number] #### [facility] [address] [place] [address] Nitrite Ql (U) Negative Normal Negative [facility] Comment on above: Performed By: #### 1 [id number] #### [facility] [address] [place] [address] pH (U) 6.0 [pH] Invalid Interpretation Code 5.0-9.0 [facility] Comment on above: Performed By: #### 1 [id number] #### [facility] [address] [place] [address] Protein (U) [Mass/Vol] Negative Normal Negative [facility] Comment on above: Performed By: #### 1 [id number] #### [facility] [address] [place] [address] Specific gravity (U) [Rel density] >=1.030 Invalid Interpretation Code 1.005-1.030 [facility] Comment on above: Performed By: #### 1 [id number] #### [facility] [address] [place] [address] Type of Urine collection method Clean Catch Normal [facility] Comment on above: Performed By: #### 1 [id number] #### [facility] [address] [place] [address] Urobilinogen Qn (U) 0.2 {Rajwinder'U}/dL Normal 0.0-1.0 [facility] Comment on above: Performed By: #### 1 [id number] #### [facility] [address] [place] [address] WBC Auto Ql (U) Negative Normal Negative [facility] Comment on above: Performed By: #### 1 [id number] #### [facility] [address] [place] [address] WBC LM.HPF (Urine sed) [#/Area] 0-5 Normal 0-5 [facility] Comment on above: Performed By: #### 1 [id number] #### [facility] [address] [place] [address] URINALYSISOrdered By: Indira calix on 03-24-2023 Bilirubin [...] sed) 0-3 (03/24/23 3:05 PM) Normal [facility] UA Auto SS Glucose Test strip (U) [Mass/Vol] Negative (03/24/23 3:05 PM) Normal Negative [facility] UA Auto SS Hemoglobin Ql (U) Negative (03/24/23 3:05 PM) Normal Negative [facility] UA Auto SS Ketones (U) [Mass/Vol] Negative (03/24/23 3:05 PM) Normal Negative [facility] UA Auto SS Cochrane.plasma/Lith ium.RBC (Bld) [Mass ratio] 0-3 /HPF Normal 0-3/HPF [facility] UA Auto SS Mucus Ql (Urine sed) Trace (03/24/23 3:05 PM) Normal [facility] UA Auto SS Nitrite Ql (U) Negative (03/24/23 3:05 PM) Normal Negative [facility] UA Auto SS pH (U) 6.0 *NA* (03/24/23 3:05 PM) Invalid Interpretation Code 5.0 - 9.0 [facility] UA Auto SS Protein (U) [Mass/Vol] Negative (03/24/23 3:05 PM) Normal Negative [facility] UA Auto SS Specific gravity (U) [Rel density] >=1.030 *NA* (03/24/23 3:05 PM) Invalid Interpretation Code 1.005 - 1.030 [facility] UA Auto SS UA Spec Desc Clean Catch (03/24/23 3:05 PM) Normal [facility] UA Auto SS Urobilinogen Qn (U) 0.7843849 {Rajwinder'U}/dL Normal 0.0 - 1.0 EU/dL [facility] UA Auto SS WBC Auto Ql (U) Negative (03/24/23 3:05 PM) Normal Negative [facility] UA Auto SS WBC LM.HPF (Urine sed) [#/Area] 0-5 /HPF Normal 0-5/HPF [facility] UA Auto SS XR Chest 2 Viewson [...] Order added by Discern Expert. Result Comment: Electrical Maintenance Mechanic dina kidney disease could be indicated at eGFR's of less than 60 mL/min/1.73m2. Kidney failure is indicated at less than 15 mL/min/1.73m2. Performed By: #### 1 [id number], 6692894, 4342052, 6862017, 3472126, 6470475 ####[facility] [address] [place] [address] Physician Orderon 03-23-2023 Physician Order [id number] Normal [facility] XR [...] VANDANA YUAN Date: 2022-10-07 22:08 Normal [facility] CBC AUTO DIFFon 09-16-2022 BASO # 0.0 103/ul Normal 0.0-0.1 [facility] Comment on above: Performed By: #### C BC ####[facility] [address] [place] [address]Dr. Andrade Alvarado Basophils/100 WBC (Bld) 0.5 % Normal 0.2-2.0 [facility] Comment on above: Performed By: #### C BC ####[facility] [address] [place], [place] [address]Dr. Andrade Alvarado EO # 0.1 103/ul Normal 0.0-0.7 [facility] Comment on above: Performed By: #### C BC ####[facility] [address] [place], [place] [address]Dr. Andrade Alvarado Eosinophils/100 WBC (Bld) 2.3 % Normal 0.9-7.0 [facility] Comment on above: Performed By: #### C BC ####[facility] [address] [place], [place] [address]Dr. Andrade Alvarado Erythrocyte distribution width (RBC) [Ratio] 13.7 % Normal 11.0-15.0 [facility] Comment on above: Performed By: #### C BC ####[facility] [address] [place], [place] [address]Dr. Andrade Alvarado Hematocrit (Bld) [Volume fraction] 32.8 % Critically low 36.0-48.0 [facility] Comment on above: Performed By: #### C BC ####[facility] [address] [place], [place] [address]Dr. Andrade Alvarado Hemoglobin (Bld) [Mass/Vol] 10.9 g/dL Critically low 12.0-16.0 [facility] Comment on above: Performed By: #### C BC ####[facility] [address] [place] [id number]. Andrade Alvaraod IG # 0.02 10e3/ul Normal 0.00-0.03 [facility] Comment on above: Performed By: #### C BC ####[facility] [address] [place] [address]Dr. Andrade Christiano IG % 0.5 % Normal 0.0-0.5 [facility] Comment on above: Performed By: #### C BC ####[facility] [address] [place] [address]Dr. Andrade Christiano LYMPH # 1.6 103/ul Normal 1.2-3.8 [facility] Comment on above: Performed By: #### C BC ####[facility] [address] [place] [address]Dr. Andrade Alvarado Lymphocytes/100 WBC (Bld) 41.8 % Normal 20.5-60.0 [facility] Comment on above: Performed By: #### C BC ####[facility] [address] [place] [address]Dr. Kellengregory Alvarado MANUAL DIFF REQ NO Normal [facility] Comment on above: Performed By: #### C BC ####[facility] [address] [place] [address]Dr. Andrade Alvarado MCH (RBC) [Entitic mass] 31.9 pg Normal 26.7-34.0 [facility] Comment on above: Performed By: #### C BC ####[facility] [address] [place] [address]Dr. Andrade Alvarado MCHC (RBC) [Mass/Vol] 33.2 g/dL Normal 29.9-35.2 [facility] Comment on above: Performed By: #### C BC ####[facility] [address] [place] [address]Dr. Andrade Alvarado MCV (RBC) [Entitic vol] 95.9 fL Normal 81.0-99.0 [facility] Comment on above: Performed By: #### C BC ####[facility] [address] [place], [place] [address]Dr. Andrade Alvarado MONO # 0.5 103/ul Normal 0.3-0.8 [facility] Comment on above: Performed By: #### C BC ####[facility] [address] [place] [id number]. Andrade Alvarado Monocytes/100 WBC (Bld) 13.1 % Critically high 1.7-12.0 [facility] Comment on above: Performed By: #### C BC ####[facility] [address] [place] [id number]. Andrade Alvarado NEUT # 1.6 103/ul Normal 1.4-6.5 [facility] Comment on above: Performed By: #### C BC ####[facility] [address] [place] [address]Dr. Andrade Alvarado Neutrophils/100 WBC (Bld) 41.8 % Critically low 43.0-75.0 [facility] Comment on above: Performed By: #### C BC ####[facility] [address] [place] [address]Dr. Andrade Alvarado Platelet mean volume (Bld) [Entitic vol] 8.8 fL Critically low 9.5-13.5 [facility] Comment on above: Performed By: #### C BC ####[facility] [address] [place] [id number]. Andrade Alvarado PLT 219 103/ul Normal 150-450 [facility] Comment on above: Performed By: #### C BC ####[facility] [address] [place] [id number]. Andrade Alvarado RBC 3.42 106/ul Critically low 4.20-5.40 [facility] Comment on above: Performed By: #### C BC ####[facility] [address] [place] [id number]. Andrade Alvarado WBC 3.9 103/ul Critically low 4.0-11.0 [facility] Comment on above: Performed By: #### C BC ####[facility] [address] [place] [id number]. Andrade Alvarado FERRITINon 09-16-2022 Ferritin [Mass/Vol] 292.0 ng/mL Critically high 8.0-252.[address] [facility] Comment on above: Performed By: #### F ERR, B12FOL, FETIBC #### [facility] [address] [place] [address] [address] Andrade Alvarado IRON AND TIBCon 09-16-2022 % SATURATION 76.2 % Normal [facility] Comment on above: Performed By: #### F ERR, B12FOL, FETIBC #### [facility] [address] [place] [address] [address] Andrade Alvarado Iron [Mass/Vol] 259.0 ug/dL Critically high 50.0-170.0 [facility] Comment on above: Performed By: #### F ERR, B12FOL, FETIBC #### [facility] [address] [place] [address] [address] Andrade Alvarado TIBC DIRECT 340.0 ug/dL Normal 250.0-450.[address] [facility] Comment on above: Performed By: #### F ERR, B12FOL, FETIBC #### [facility] [address] [place] [address] [address] Andrade Alvarado PROF 14(COMP METB)on 023 Albumin [Mass/Vol] 4.0 g/dL Normal 3.4-5.0 [facility] Comment on above: Performed By: #### C MP ####[facility] [address] [place] [address]Dr. Andrade Alvarado Albumin/Globulin [Mass ratio] 1.3 {ratio} Normal [facility] Comment on above: Performed By: #### C MP ####[facility] [address] [place] [id number]. Andrade Alvarado ALP [Catalytic activity/Vol] 47 U/L Normal 46-116 [facility] Comment on above: Performed By: #### C MP ####[facility] [address] [place] [address]Dr. Andrade Alvarado ALT [Catalytic activity/Vol] 23 U/L Normal 14-[address] [facility] Comment on above: Performed By: #### C MP ####[facility] [address] [place] [phone]. Andrade Alvarado Anion gap [Moles/Vol] 12.1 mmol/L Normal [facility] Comment on above: Performed By: #### C MP ####[facility] [address] [place] [phone]. Andrade Alvarado AST [Catalytic activity/Vol] 23 U/L Normal 15-[address] [facility] Comment on above: Performed By: #### C MP ####[facility] [address] [place] [phone]. Andrade Christiano Bilirubin [Mass/Vol] 0.4 mg/dL Normal 0.2-1.[address] [facility] Comment on above: Performed By: #### C MP ####[facility] [address] [place], [place] [address]Dr. Andrade Alvarado Calcium [Mass/Vol] 9.3 mg/dL Normal 8.5-10.1 [facility] Comment on above: Performed By: #### C MP ####[facility] [address] [place] [address]Dr. Andrade Christiano Chloride [Moles/Vol] 108 mmol/L Critically high 98-[address] [facility] Comment on above: Performed By: #### C MP ####[facility] [address] [place] [phone]. Kellengregory Christiano CO2 [Moles/Vol] 26.9 mmol/L Normal 21.0-32.0 [facility] Comment on above: Performed By: #### C MP ####[facility] [address] [place] [phone]. Andrade Christiano Creatinine [Mass/Vol] 0.87 mg/dL Normal 0.55-1.[address] [facility] Comment on above: Performed By: #### C MP ####[facility] [address] [place] [phone]. Andrade Christiano EGFR-AF TONGAN >60 Normal >=60 [facility] Comment on above: Performed By: #### C MP ####[facility] [address] [place] [phone]. Andrade Alvarado EGFR-NON AF TONGAN >60 Normal >=60 [facility] Comment on above: Performed By: #### C MP ####[facility] [address]cl[address] [place] [phone]. Andrade Alvarado Globulin (S) [Mass/Vol] 3.0 g/dL Normal [facility] Comment on above: Performed By: #### C MP ####[facility] [address]bl[address] [place] [address]Dr. Andrade Alvarado Glucose [Mass/Vol] 102 mg/dL Normal 74-106 [facility] Comment on above: Performed By: #### C MP ####[facility] [address] [place], [place] [address]Dr. Andrade Alvarado Potassium [Moles/Vol] 4.0 mmol/L Normal 3.5-5.1 [facility] Comment on above: Performed By: #### C MP ####[facility] [address] [place], [place] [address]Dr. Andrade Alvarado Protein [Mass/Vol] 7.0 g/dL Normal 6.4-8.2 [facility] Comment on above: Performed By: #### C MP ####[facility] [address] [place], [place] [address]Dr. Andrade Alvarado Sodium [Moles/Vol] 143 mmol/L Normal 136-145 [facility] Comment on above: Performed By: #### C MP ####[facility] [address] [place], [place] [address]Dr. Andrade Alvarado Urea nitrogen [Mass/Vol] 25.0 mg/dL Critically high 7.0-18.0 [facility] Comment on above: Performed By: #### C MP ####[facility] [address] [place] [address]Dr. Andrade Alvarado Urea nitrogen/Creatinine [Mass ratio] 28.7 mg/mg Normal [facility] Comment on above: Performed By: #### C MP ####[facility] [address] [place], [place] [address]QlDr. Andrade Alvarado SED RATE WESTERGRENon 2022 SED RATE 11 mm/hr Normal <=[address] [facility] Comment on above: Performed By: #### S EDR ####[facility] [address]sc[address] [place], [place] [address]VcDr. Andrade Alvarado VIT B12 AND FOLATEon 023 Cobalamin (Vitamin B12) [Mass/Vol] 249.0 pg/mL Normal 193.0-986.[address] [facility] Comment on above: Performed By: #### F ERR, B12FOL, FETIBC #### [facility] [address] [place] [address] [address] Andrade Alvarado FOLATE 14.00 ng/mL Normal 8.60-58.[address] [facility] Comment on above: Performed By: #### F ERR, B12FOL, FETIBC #### [facility] [address] [place] [address] [address] Andrade Alvarado MG MAMM SCREEN 3D BRENNA CADon 2022 MG MAMM SCREEN 3D BRENNA CAD Patient: RADHA ZAIDI Exam Date: 2022 : 1960 Gender:F Ordering : DR JOHN ASHBY D.O. Admission #: [id number] Family : Order #: [id number] CLICK HERE TO VIEW EXAM RADIOLOGY REPORT [...] prostate cancer at age 72. LOCATION: [facility] BREAST COMPOSITION: Scattered areas fibroglandular density. [...] M.D. on 06/09/2022 at 15:30 Normal [facility] CBC AUTO DIFFon 05-20-2022 BASO # 0.0 103/ul Normal 0.0-0.1 [facility] Comment on above: Performed By: #### C BC ####[facility] [address] [place] [address]Dr. Andrade Alvarado Basophils/100 WBC (Bld) 1.0 % Normal 0.2-2.[address] [facility] Comment on above: Performed By: #### C BC ####[facility] [address] [place], [place] [address]Dr. Andrade Alvarado EO # 0.1 103/ul Normal 0.0-0.[address] [facility] Comment on above: Performed By: #### C BC ####[facility] [address] [place] [address]Dr. Andrade Alvarado Eosinophils/100 WBC (Bld) 2.5 % Normal 0.9-7.[address] [facility] Comment on above: Performed By: #### C BC ####[facility] [address] [place] [phone]. Andrade Alvarado Erythrocyte distribution width (RBC) [Ratio] 13.0 % Normal 11.0-15.[address] [facility] Comment on above: Performed By: #### C BC ####[facility] [address] [place], [place] [address]Dr. Andrade Alvarado Hematocrit (Bld) [Volume fraction] 34.9 % Critically low 36.0-48.0 [facility] Comment on above: Performed By: #### C BC ####[facility] [address] [place], [place] [address]Dr. Andrade Alvarado Hemoglobin (Bld) [Mass/Vol] 11.6 g/dL Critically low 12.0-16.[address] [facility] Comment on above: Performed By: #### C BC ####[facility] [address] [place] [phone]. Andrade Alvarado IG # 0.02 10e3/ul Normal 0.00-0.[address] [facility] Comment on above: Performed By: #### C BC ####[facility] [address] [place] [phone]. Andrade Alvarado IG % 0.5 % Normal 0.0-0.5 [facility] Comment on above: Performed By: #### C BC ####[facility] [address] [place] [phone]. Andrade Alvarado LYMPH # 1.9 103/ul Normal 1.2-3.8 [facility] Comment on above: Performed By: #### C BC ####[facility] [address] [place] [address]Dr. Kellengregory Alvarado Lymphocytes/100 WBC (Bld) 46.1 % Normal 20.5-60.[address] [facility] Comment on above: Performed By: #### C BC ####[facility] [address] [place] [phone]. Andrade Alvarado MANUAL DIFF REQ NO Normal [facility] Comment on above: Performed By: #### C BC ####[facility] [address] [place] [phone]. Andrade Alvarado MCH (RBC) [Entitic mass] 32.3 pg Normal 26.7-34.0 [facility] Comment on above: Performed By: #### C BC ####[facility] [address] [place], [place] [address]Dr. Andrade Alvarado MCHC (RBC) [Mass/Vol] 33.2 g/dL Normal 29.9-35.2 [facility] Comment on above: Performed By: #### C BC ####[facility] [address] [place] [phone]. Andrade Alvarado MCV (RBC) [Entitic vol] 97.2 fL Normal 81.0-99.0 [facility] Comment on above: Performed By: #### C BC ####[facility] [address] [place], [place] [address]Kp. Andrade Alvarado MONO # 0.5 103/ul Normal 0.3-0.8 [facility] Comment on above: Performed By: #### C BC ####[facility] Femrlefnfd[address] [place], [place] [address]Rr. Andrade Alvarado Monocytes/100 WBC (Bld) 13.5 % Critically high 1.7-12.0 [facility] Comment on above: Performed By: #### C BC ####[facility] [address]yc[address] [place] [phone]. Andrade Alvarado NEUT # 1.5 103/ul Normal 1.4-6.5 [facility] Comment on above: Performed By: #### C BC ####[facility] [address]fhfal[address] [place] [phone]. Andrade Alvarado Neutrophils/100 WBC (Bld) 36.4 % Critically low 43.0-75.0 [facility] Comment on above: Performed By: #### C BC ####[facility] [address] [place] [phone]. Andrade Alvarado Platelet mean volume (Bld) [Entitic vol] 8.9 fL Critically low 9.5-13.5 [facility] Comment on above: Performed By: #### C BC ####[facility] [address]ep[address] [place] [phone]. Andrade Alvarado PLT 237 103/ul Normal 150-450 [facility] Comment on above: Performed By: #### C BC ####[facility] [address]mf[address] [place] [phone]. Andrade Alvarado RBC 3.59 106/ul Critically low 4.20-5.40 [facility] Comment on above: Performed By: #### C BC ####[facility] [address]km[address] [place] [phone]. Andrade Alvarado WBC 4.0 103/ul Normal 4.0-11.0 [facility] Comment on above: Performed By: #### C BC ####[facility] [address]mitj[address] [place], [place] [address]NuDr. Andrade Alvarado CRPon 05-20-2022 CRP [Mass/Vol] mg/L Normal <=1.0 [facility] Comment on above: Performed By: #### C MP, CRP, TSH ####[facility] Az[address]vzi[address] [place], [place] [address]UvDr. Andrade Alvarado PROF 14(COMP METB)on 022 Albumin [Mass/Vol] 4.2 g/dL Normal 3.4-5.0 [facility] Comment on above: Performed By: #### C MP, CRP, TSH #### [facility] [address] [place] [address] [address] Andrade Alvarado Albumin/Globulin [Mass ratio] 1.3 {ratio} Normal [facility] Comment on above: Performed By: #### C MP, CRP, TSH #### [facility] [address] [place] [address] [address] Andrade Alvarado ALP [Catalytic activity/Vol] 50 U/L Normal 46-[address] [facility] Comment on above: Performed By: #### C MP, CRP, TSH #### [facility] [address] [address] [address] Andrade Alvarado ALT [Catalytic activity/Vol] 23 U/L Normal 14-[address] [facility] Comment on above: Performed By: #### C MP, CRP, TSH #### [facility] [address] [place] [address] [address] Andrade Alvarado Anion gap [Moles/Vol] 11.3 mmol/L Normal [facility] [facility] Comment on above: Performed By: #### C MP, CRP, TSH #### [facility] [address] [address] [address] Andrade Alvarado AST [Catalytic activity/Vol] 23 U/L Normal 15-[address] [facility] Comment on above: Performed By: #### C MP, CRP, TSH #### [facility] [address] [address] [address] Andrade Alvarado Bilirubin [Mass/Vol] 0.5 mg/dL Normal 0.2-1.0 [facility] Comment on above: Performed By: #### C MP, CRP, TSH #### [facility] [address] [address] [address] Andrade Alvarado Calcium [Mass/Vol] 9.3 mg/dL Normal 8.5-10.1 [facility] Comment on above: Performed By: #### C MP, CRP, TSH #### [facility] [address] [place] [address] Dr. Andrade Alvarado Chloride [Moles/Vol] 104 mmol/L Normal 98-107 [facility] Comment on above: Performed By: #### C MP, CRP, TSH #### [facility] [address] [place] [address] Dr. Andrade Alvarado CO2 [Moles/Vol] 27.2 mmol/L Normal 21.0-32.0 [facility] Comment on above: Performed By: #### C MP, CRP, TSH #### [facility] [address] [place] [address] Dr. Andrade Alvarado Creatinine [Mass/Vol] 0.99 mg/dL Normal 0.55-1.[address] [facility] Comment on above: Performed By: #### C MP, CRP, TSH #### [facility] [address] [place] [address] Dr. Andrade Alvarado EGFR-AF TONGAN >60 Normal >=60 [facility] Comment on above: Performed By: #### C MP, CRP, TSH #### [facility] [address] [place] [address] Dr. Andrade Alvarado EGFR-NON AF TONGAN 57 mL/min/1.73m2 Critically low >=60 [facility] Comment on above: Performed By: #### C MP, CRP, TSH #### [facility] [address] [place] [address] Dr. Andrade Alvarado Globulin (S) [Mass/Vol] 3.3 g/dL Normal [facility] Comment on above: Performed By: #### C MP, CRP, TSH #### [facility] [address] [place] [address] Dr. Andrade Alvarado Glucose [Mass/Vol] 97 mg/dL Normal 74-106 [facility] Comment on above: Performed By: #### C MP, CRP, TSH #### [facility] [address] [address] [address] Andrade Alvarado Potassium [Moles/Vol] 3.5 mmol/L Normal 3.5-5.[address] [facility] Comment on above: Performed By: #### C MP, CRP, TSH #### [facility] [address] [address] [address] Andrade Alvarado Protein [Mass/Vol] 7.5 g/dL Normal 6.4-8.2 [facility] Comment on above: Performed By: #### C MP, CRP, TSH #### [facility] [address] [address] [address] Andrade Alvarado Sodium [Moles/Vol] 139 mmol/L Normal 136-145 [facility] Comment on above: Performed By: #### C MP, CRP, TSH #### [facility] [address] [address] [address] Andrade Alvarado Urea nitrogen [Mass/Vol] 22.0 mg/dL Critically high 7.0-18.[address] [facility] Comment on above: Performed By: #### C MP, CRP, TSH #### [facility] [address] [address] [address] Andrade Alvarado Urea nitrogen/Creatinine [Mass ratio] 22.2 mg/mg Normal [facility] Comment on above: Performed By: #### C MP, CRP, TSH #### [facility] [address] [address] [address] Andrade Alvarado SED RATE [facility] 2021 SED RATE 22 mm/hr Normal <=30 [facility] Comment on above: Performed By: #### S EDR ####[facility] [address] [address]Dr. Andrade Alvarado TSHon 05-20-2022 TSH 1.373 uIU/mL Normal 0.358-3.740 [facility] Comment on above: Performed By: #### C MP, CRP, TSH #### [facility] [address], [place] [address] Dr. Andrade Alvarado CBC AUTO DIFFon 02-16-2022 BASO # 0.0 103/ul Normal 0.0-0.[address] [facility] Comment on above: Performed By: #### C BC ####[facility] [address] [id number] Alvarado Basophils/100 WBC (Bld) 0.9 % Normal 0.2-2.[address] [facility] Comment on above: Performed By: #### C BC ####[facility] [address] [id number]. Andrade Alvarado EO # 0.1 103/ul Normal 0.0-0.[address] [facility] Comment on above: Performed By: #### C BC ####[facility] [address] [address]DrMehreen Alvarado Eosinophils/100 WBC (Bld) 2.3 % Normal 0.9-7.[address] [facility] Comment on above: Performed By: #### C BC ####[facility] [address] [address]DrMehreen Alvarado Erythrocyte distribution width (RBC) [Ratio] 12.6 % Normal 11.0-15.[address] [facility] Comment on above: Performed By: #### C BC ####[facility] [address] [id number] Alvarado Hematocrit (Bld) [Volume fraction] 37.8 % Normal 36.0-48.[address] [facility] Comment on above: Performed By: #### C BC ####[facility] [address] [id number] Alvarado Hemoglobin (Bld) [Mass/Vol] 12.3 g/dL Normal 12.0-16.[address] [facility] Comment on above: Performed By: #### C BC ####[facility] [address] [id number] Alvarado IG # 0.02 10e3/ul Normal 0.00-0.[address] [facility] Comment on above: Performed By: #### C BC ####[facility] [address] [address]Dr. Andrade Alvarado IG % 0.5 % Normal 0.0-0.[address] [facility] Comment on above: Performed By: #### C BC ####[facility] [address] [address]Dr. Andrade Alvarado LYMPH # 2.1 103/ul Normal 1.2-3.[address] [facility] Comment on above: Performed By: #### C BC ####[facility] [address] [address]DrMehreen Alvarado Lymphocytes/100 WBC (Bld) 48.3 % Normal 20.5-60.[address] [facility] Comment on above: Performed By: #### C BC ####[facility] [address] [place], [place] [address]Dr. Andrade Alvarado MANUAL DIFF REQ NO Normal [facility] Comment on above: Performed By: #### C BC ####[facility] [address] [id number]. Kellengregory Alvarado MCH (RBC) [Entitic mass] 31.9 pg Normal 26.7-34.[address] [facility] Comment on above: Performed By: #### C BC ####[facility] [address] [id number]. Andrade Alvarado MCHC (RBC) [Mass/Vol] 32.5 g/dL Normal 29.9-35.2 [facility] Comment on above: Performed By: #### C BC ####[facility] [address] [id number] Alvarado MCV (RBC) [Entitic vol] 97.9 fL Normal 81.0-99.[address] [facility] Comment on above: Performed By: #### C BC ####[facility] [address] [id number] Alvarado MONO # 0.5 103/ul Normal 0.3-0.8 [facility] Comment on above: Performed By: #### C BC ####[facility] [address] [id number]. Andrade Alvarado Monocytes/100 WBC (Bld) 11.2 % Normal 1.7-12.[address] [facility] Comment on above: Performed By: #### C BC ####[facility] [address] [id number]. Andrade Alvarado NEUT # 1.6 103/ul Normal 1.4-6.[address] [facility] Comment on above: Performed By: #### C BC ####[facility] [address] [id number]. Andrade Alvarado Neutrophils/100 WBC (Bld) 36.8 % Critically low 43.0-75.[address] [facility] Comment on above: Performed By: #### C BC ####[facility] [address] [address]Dr. Andrade Alvarado Platelet mean volume (Bld) [Entitic vol] 9.9 fL Normal 9.5-13.[address] [facility] Comment on above: Performed By: #### C BC ####[facility] [address] [id number]. Andrade Alvarado PLT 213 103/ul Normal 150-450 [facility] Comment on above: Performed By: #### C BC ####[facility] [address] [phone]. Andrade Alvarado RBC 3.86 106/ul Critically low 4.20-5.40 [facility] Comment on above: Performed By: #### C BC ####[facility] [address] [id number]. Andrade Alvarado WBC 4.4 103/ul Normal 4.0-11.0 [facility] Comment on above: Performed By: #### C BC ####[facility] [address] [id number] Alvarado PROF 14(COMP METB)on 022 Albumin [Mass/Vol] 4.2 g/dL Normal 3.4-5.0 [facility] Comment on above: Performed By: #### C MP #### [facility] [address] [place] [address] Dr. Andrade Alvarado Albumin/Globulin [Mass ratio] 1.3 {ratio} Normal [facility] Comment on above: Performed By: #### C MP #### [facility] [address] [address] [address] Andrade Alvarado ALP [Catalytic activity/Vol] 61 U/L Normal 46-[address] [facility] Comment on above: Performed By: #### C MP #### [facility] [address] [place] [address] Dr. Andrade Alvarado ALT [Catalytic activity/Vol] 23 U/L Normal 14-[address] [facility] Comment on above: Performed By: #### C MP #### [facility] [address] [place] [address] Dr. Andrade Alvarado Anion gap [Moles/Vol] 15.5 mmol/L Normal [facility] Comment on above: Performed By: #### C MP #### [facility] [address] [place] [address] Dr. Andrade Alvarado AST [Catalytic activity/Vol] 20 U/L Normal 15-[address] [facility] Comment on above: Performed By: #### C MP #### [facility] [address] [place] [address] Dr. Andrade Alvarado Bilirubin [Mass/Vol] 0.5 mg/dL Normal 0.2-1.[address] [facility] Comment on above: Performed By: #### C MP #### [facility] [address] [place] [address] Dr. Andrade Alvarado Calcium [Mass/Vol] 9.1 mg/dL Normal 8.5-10.1 [facility] Comment on above: Performed By: #### C MP #### [facility] [address] [place] [address] Dr. Andrade Alvarado Chloride [Moles/Vol] 106 mmol/L Normal 98-107 [facility] Comment on above: Performed By: #### C MP #### [facility] [address] [address] [address] Andrade Alvarado CO2 [Moles/Vol] 25.6 mmol/L Normal 21.0-32.0 [facility] Comment on above: Performed By: #### C MP #### [facility] [address] [address] [address] Andrade Alvarado Creatinine [Mass/Vol] 0.97 mg/dL Normal 0.55-1.02 [facility] Comment on above: Performed By: #### C MP #### [facility] [address] [address] [address] Andrade Alvarado EGFR-AF TONGAN >60 Normal >=60 [facility] Comment on above: Performed By: #### C MP #### [facility] [address] [address] [address] Andrade Alvarado EGFR-NON AF TONGAN 58 mL/min/1.73m2 Critically low >=60 [facility] Comment on above: Performed By: #### C MP #### [facility] [address] [address] [address] Andrade Alvarado Globulin (S) [Mass/Vol] 3.2 g/dL Normal [facility] Comment on above: Performed By: #### C MP #### [facility] [address] [address] [address] Andrade Alvarado Glucose [Mass/Vol] 91 mg/dL Normal 74-106 [facility] Comment on above: Performed By: #### C MP #### [facility] [address] [address] [address] Andrade Alvarado Potassium [Moles/Vol] 4.1 mmol/L Normal 3.5-5.1 [facility] Comment on above: Performed By: #### C MP #### [facility] [address] [address] [address] Andrade Alvarado Protein [Mass/Vol] 7.4 g/dL Normal 6.4-8.2 [facility] Comment on above: Performed By: #### C MP #### [facility] [address] [address] [address] Andrade Alvarado Sodium [Moles/Vol] 143 mmol/L Normal 136-145 [facility] Comment on above: Performed By: #### C MP #### [facility] [address] [address] [address] Andrade Alvarado Urea nitrogen [Mass/Vol] 18.0 mg/dL Normal 7.0-18.[address] [facility] Comment on above: Performed By: #### C MP #### [facility] [address] [address] [address] Andrade Alvarado Urea nitrogen/Creatinine [Mass ratio] 18.6 mg/mg Normal [facility] Comment on above: Performed By: #### C MP #### [facility] [address] [place] [address] Dr. Andrade Alvarado SED RATE [facility] 2021 SED RATE 15 mm/hr Normal <=[address] [facility] Comment on above: Performed By: #### S EDR #### [facility] [address] [place] [address] Dr. Andrade Alvarado KNEE LEFT 3 VWSon 04-25-2020 KNEE LEFT 3 S [facility] Department of Radiology [address] [place] [id number] Patient Name: RADHA ZAIDI : 1960 Sex: F Age: Race: White Pt. 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 Electronically signed: Eliezer Cam. Transcribed by: [email or web address], User Resident: Electronically Signed by: ELIEZER CAM @ 04/25/2020 11:44 AM Normal [facility] Comment on above: Order Comment: Evalu ate TIBIA FIBULA LEFTon 03-27-20 20 TIBIA FIBULA LEFT [facility] Department of Radiology [address] [place] [id number] Patient Name: RADHA ZAIDI : 1960 Sex: F Age: Race: White Pt. Location: Patient Status: Ordered Date: 03/27/2020 8:05:00 AM Completed Date: 03/27/2020 08:35 AM Requesting Provider: CHARLI LUKE Attending Provider: Report Copy To: Signs & Symptoms: S82.832A Oth fracture of upper and lower end of left fibula, init I10 History: Hunter Comments: , , , Ordering Provider - [...] healing Electronically signed: Crissy Dubon. Transcribed by: [email or web address], User Resident: Electronically Signed by: CRISSY DUBON @ 03/27/2020 09:11 AM Normal [facility] Comment on above: Order Comment: Evalu ate Operative Reporton 0 Operative Report MR#: [id number] S [facility] Pt. Name: Radha Zaidi Room #: [...] were bluntly retracted. We then used a Jupiter as well as a hemostat to debride [...] Paniagua MD Date Trans: 03/13/2020 02:26 A/bryson YBARRA_JN:[id number] cc: John Ashby D.O. [address] [place] [id number] Normal [facility] KNEE LEFT 1 OR 2 [facility] 03-12 KNEE LEFT 1 OR 2 [facility] Department of Radiology [address] [place] [phone] Patient Name: RADHA ZAIDI : [...] fracture. Electronically signed: Rahul James. Transcribed by: [email or web address], User Resident: Electronically Signed by: RAHUL JAMES @ 03/12/2020 03:20 PM Normal [facility] Comment on above: Order Comment: Evalu ate POC GLUCOSE LABon 03-12-2020 Glucose [Mass/Vol] 103 mg/dL High 70-100 [facility] Comment on above: Performed By: #### 8 [id number] ####[facility] [place] [address], [place] *MRSA/MSSA DNA NASALon 03-08 *MRSA/MSSA DNA NASAL Clinical Report: (D) Specimen: NASAL SWAB Collected: 03/08/2020 14:02 Status: Final Last Updated: 03/09/2020 09:30 MSSA DNA (Final) Negative MRSA DNA (Final) Negative Normal [facility] Comment on above: Performed By: #### 3 1595 ####[facility] *SARS-CoV-2 COVID-19on 03-08 [id number] Not Detected Normal Not Detected [facility] Comment on above: Order Comment: The A ptima SARS-CoV-2 assay is a nucleic acid amplification test intended for the qualitative detection of RNA from SARS-CoV-2 isolated and purified from nasopharyngeal (TRAFFIC OFFICER),oropharyngeal (OP), nasal swab, sputum, and bronchoalveolar lavage (BAL) specimens from patients with signs and symptoms of infection who are suspected of COVID-19. Results are for the identification of SARS-CoV-2 RNA. The SARS-CoV-2 RNA is generally detectable during the acute phase of infection. The Aptima SARS-CoV-2 Assay on the I Do Now I Don't and [employer] Fusion system is intended for use by laboratory personnel specifically instructed and trained in the operation of the [employer] and [employer] system. The Aptima SARS-CoV-2 assay is [...] information. Performed By: #### 3 1792 #### [facility] [address] [address], [facility] APTTon 03-08-2020 aPTT Coag (Bld) [Time] 26.9 s Normal 25.0-35.0 [facility] Comment on above: Result Comment: ALL [...] THIS PURPOSE. Performed By: #### 5 6101, [id number] ####[facility] [facility] [place] [address], [facility] BASIC METABOLIC PANELon 08- Calcium [Mass/Vol] 9.7 mg/dL Normal 8.6-10.3 [facility] Comment on above: Performed By: #### 0 0071 #### [facility] [address] [place] [address], [facility] Chloride [Moles/Vol] 103 mmol/L Normal 98-107 [facility] Comment on above: Performed By: #### 0 0071 #### [facility] [address] [place] [address], [facility] CO2 [Moles/Vol] 31 mmol/L Normal 21-31 [facility] Comment on above: Performed By: #### 0 0071 #### [facility] [address] [place] [address], [facility] Creatinine [Mass/Vol] 0.87 mg/dL Normal 0.60-1.20 [facility] Comment on above: Performed By: #### 0 0071 #### [facility] [address] [facility] [place] [address], [facility] GFR/1.73 sq M predicted among blacks MDRD (S/P/Bld) [Vol rate/Area] mL/min/{1.73_m2} Normal >60 [facility] Comment on above: Performed By: #### 0 0071 #### [facility] [address] [place] [id number], [facility] GFR/1.73 sq M predicted among non-blacks MDRD (S/P/Bld) [Vol rate/Area] mL/min/{1.73_m2} Normal >60 [facility] Comment on above: Performed By: #### 0 0071 #### [facility] [address] [place] [address], [facility] Glucose [Mass/Vol] 106 mg/dL High 70-100 [facility] Comment on above: Performed By: #### 0 0071 #### [facility] [address] [place] [address], [facility] Potassium [Moles/Vol] 4.3 mmol/L Normal 3.5-5.1 [facility] Comment on above: Performed By: #### 0 0071 #### [facility] [address] [place] [address], [facility] Sodium [Moles/Vol] 141 mmol/L Normal 136-145 [facility] Comment on above: Performed By: #### 0 0071 #### [facility] [address] [facility] [place] [address], [facility] Urea nitrogen [Mass/Vol] 14 mg/dL Normal 7-25 [facility] Comment on above: Performed By: #### 0 0071 #### [facility] [address] [facility] [place] [address], [facility] CBC W/DIFFon 03-08-2020 ABS BASOPHILS 0.1 10*3/uL Normal 0.0-0.2 [facility] Comment on above: Performed By: #### 5 0103 ####[facility] [facility] [place] [address], [facility] ABS IMM GRANS 0.0 10*3/uL Normal 0.0-0.2 [facility] Comment on above: Performed By: #### 5 010 ####[facility] [facility] [place] [address], [facility] ABS NEUTROPHILS 3.4 10*3/uL Normal 1.6-7.6 [facility] Comment on above: Performed By: #### 5 010 ####[facility] [facility].[address] Basophils/100 WBC (Bld) 0.8 % Normal 0.0-1.0 [facility] Comment on above: Performed By: #### 5 0103 ####[facility] Eosinophils (Bld) [#/Vol] 0.7 10*3/uL High 0.0-0.5 [facility] Comment on above: Performed By: #### 5 0103 ####[facility] [facility].[address] Eosinophils/100 WBC (Bld) 9.5 % High 0.0-6.0 [facility] Comment on above: Performed By: #### 5 0103 ####[place] [address] Erythrocyte distribution width (RBC) [Ratio] 13.6 % Normal 11.5-15.0 [facility] Comment on above: Performed By: #### 5 0103 ####[facility] Hematocrit (Bld) [Volume fraction] 42.5 % Normal 36.0-45.0 [facility] Comment on above: Performed By: #### 5 0103 ####[facility] [facility].[address] Hemoglobin (Bld) [Mass/Vol] 13.7 g/dL Normal 12.0-15.0 [facility] Comment on above: Performed By: #### 5 0103 ####[facility] IMMATURE GRANS 0.3 % Normal 0.0-1.0 [facility] Comment on above: Performed By: #### 5 3 ####[facility] Lymphocytes (Bld) [#/Vol] 2.7 10*3/uL Normal 1.2-4.0 [facility] Comment on above: Performed By: #### 5 0103 ####[facility] Lymphocytes/100 WBC (Bld) 35.1 % Normal 20.0-45.0 [facility] Comment on above: Performed By: #### 5 0103 ####[facility] MCH (RBC) [Entitic mass] 31.2 pg Normal 27.0-33.0 [facility] Comment on above: Performed By: #### 5 3 ####[facility] [place] [address] MCHC (RBC) [Mass/Vol] 32.2 g/dL Normal 32.0-35.0 [facility] Comment on above: Performed By: #### 3 ####[facility] MCV (RBC) [Entitic vol] 96.8 fL Normal 82.0-98.0 [facility] Comment on above: Performed By: #### 5 3 ####[facility] Monocytes (Bld) [#/Vol] 0.8 10*3/uL Normal 0.1-1.0 [facility] Comment on above: Performed By: #### 5 3 ####[facility] [place] [address] MONOS 9.8 % Normal 5.0-12.0 [facility] Comment on above: Performed By: #### 5 3 ####[facility] Neutrophils/100 WBC (Bld) 44.5 % Normal 40.0-72.0 [facility] Comment on above: Performed By: #### 5 0103 ####[facility] [facility].[address] Nucleated RBC/100 WBC (Bld) [Ratio] 0 % Normal 0-0 [facility] Comment on above: Performed By: #### 5 0103 ####[facility] PLAT CNT 230 10*3/uL Normal 150-400 The [facility] Comment on above: Performed By: #### 5 0103 ####[facility] RBC (Bld) [#/Vol] 4.39 10*6/uL Normal 3.80-5.00 [facility] Comment on above: Performed By: #### 5 0103 ####[facility] [facility] [place] [address], [facility] WBC (Bld) [#/Vol] 7.72 10*3/uL Normal 4.00-10.60 [facility] Comment on above: Performed By: #### 5 0103 ####[facility] [place] [address].[address] PROTHROMBIN TIMEon 0 INR Coag (PPP) [Relative time] 0.99 {INR} Normal 0.91-1.16 [facility] Comment on above: Result Comment: ACCC [...] CHEST 1995;[id number]. Performed By: #### 5 6101, [id number] #### [facility] [address] PT Coag (PPP) [Time] 13.1 s Normal 12.3-14.8 [facility] Comment on above: Result Comment: ALL RESULTS MUST BE INTERPRETED WITH RESPECT TO BLOOD DRAWING ARTIFACT OR DILUTION ERROR OF ANTICOAGULANT AT THE TIME OF SAMPLING. Performed By: #### 5 6101, [id number] #### [facility] [address] ALBUMIN BLOODon 02-04-2020 Albumin [Mass/Vol] 4.5 g/dL Normal 3.5-5.7 [facility] Comment on above: Performed By: #### 3 0728, 46029, 77769, 69207, 18013 #### [facility] [address] [place] [address], [facility] BASIC METABOLIC PANELon 01-09 Calcium [Mass/Vol] 9.5 mg/dL Normal 8.6-10.3 [facility] Comment on above: Performed By: #### 3 0728, 92917, 96324, 40130, 71511 #### [facility] [address] [place] [address], [facility] Chloride [Moles/Vol] 105 mmol/L Normal 98-107 [facility] Comment on above: Performed By: #### 3 0728, 61313, 44569, 70462, 90509 #### [facility] [address] [place] [address], [place] CO2 [Moles/Vol] 27 mmol/L Normal 21-31 [facility] Comment on above: Performed By: #### 3 0728, 29394, 34922, 39127, 69538 #### [facility] [address] [place] [address], [place] Creatinine [Mass/Vol] 0.81 mg/dL Normal 0.60-1.20 [facility] Comment on above: Performed By: #### 3 0728, 01147, 38809, 89503, 64609 #### [facility] [address] [place] [address], [place] GFR/1.73 sq M predicted among blacks MDRD (S/P/Bld) [Vol rate/Area] mL/min/{1.73_m2} Normal >60 [facility] Comment on above: Performed By: #### 3 0728, , 74203, 36632, 27911 #### [facility] [address] [place] [address], [place] GFR/1.73 sq M predicted among non-blacks MDRD (S/P/Bld) [Vol rate/Area] mL/min/{1.73_m2} Normal >60 [facility] Comment on above: Performed By: #### 3 0728, 59965, 03497, 03032, 51561 #### [facility] [address] [place] [address], [place] Glucose [Mass/Vol] 115 mg/dL High 70-100 [facility] Comment on above: Performed By: #### 3 0728, 94471, 30928, 87436, 76483 #### [facility] [address] [place] [address], [place] Potassium [Moles/Vol] 3.9 mmol/L Normal 3.5-5.1 [facility] Comment on above: Performed By: #### 3 0728, 55018, 98147, 84379, 47222 #### [facility] [address] [facility] [place] [address], [facility] Sodium [Moles/Vol] 140 mmol/L Normal 136-145 [facility] Comment on above: Performed By: #### 3 0728, 77483, 46180, 84051, 39170 #### [facility] [address] [facility]. [address] Urea nitrogen [Mass/Vol] 20 mg/dL Normal 7-25 [facility] Comment on above: Performed By: #### 3 0728, 39831, 65948, 96022, 49206 #### [facility] [address] [facility]. [address] PREALBUMINon 02-04-2020 Prealbumin [Mass/Vol] 24.0 mg/dL Normal 17.0-34.0 [facility] Comment on above: Performed By: #### 3 0728, 15087, 91438, 40863, 53803 #### [facility] [address] [facility]. [address] TIBIA FIBULA LEFTon 02-04-20 20 TIBIA FIBULA LEFT [facility] Department of Radiology [address] [place] [id number] Patient Name: RADHA ZAIDI : 1960 [...] indicated. Electronically signed: Eliezer Randolph. Transcribed by: [id number], User Resident: Electronically Signed by: ELIEZER RANDOLPH @ 02/04/2020 10:34 AM Normal [facility] TRANSFERRINon 02-04-2020 Transferrin [Mass/Vol] 270 mg/dL Normal 203-362 [facility] Comment on above: Performed By: #### 3 0728, 74976, 37060, 91179, 04874 #### [facility] [address] [place] [address], [facility] VITAMIN D 25-HYDROXYon 02-03 VITAMIN D 25-OH 38.5 ng/mL Normal 30.0-80.0 [facility] Comment on above: Result Comment: >80. 0 Toxicity possible Performed By: #### 3 0728, 44760, 72983, 32367, 07285 #### [facility] [address] [place] [address], [place] FLUORO FOR SURGICAL PROCEDUR ESon 10-20-2017 FLUORO FOR SURGICAL PROCEDURES Exam: FLUORO FOR SURGICAL PROCEDURESHistory: ACDF Fusion Findings: Fluoroscopy time was 70 seconds A total of 19 fluoroscopic images were obtained by Dr. Cheng during the anterior cervical discectomy in the lower cervical spine.IMPRESSION: Impression: Fluoroscopic assistance provided for operative guidance.Interpreted by:DIANA Lealigned by:Eugnee Cancino MD//18Final result Normal [facility] Basic Metabolic Panelon Anion gap 15 mmol/L Critically high 7-13 [facility] Calcium 9.6 mg/dL Normal 8.6-10.2 [facility] Chloride 102 mmol/L Normal 98-107 [facility] CO2 23 mmol/L Normal 22-29 [facility] Creatinine 0.54 mg/dL Normal 0.50-0.90 [facility] eGFR (black) mL/min/{1.73_m2} Normal >60 [facility] Comment on above: Result Comment: >60 mL/min/1.73m2 EGFR, calc. for ages 18 and older using theMDRD formula (not corrected for weight), is valid for stablerenal function. eGFR (MDRD) mL/min/{1.73_m2} Normal >60 [facility] Comment on above: Result Comment: >60 mL/min/1.73m2 EGFR, calc. for ages 18 and older using theMDRD formula (not corrected for weight), is valid for stablerenal function. Glucose mass conc 97 mg/dL Normal 74-109 [facility] Potassium molar conc 4.8 mmol/L Normal 3.5-5.1 [facility] Sodium 140 mmol/L Normal 132-144 [facility] Urea nitrogen 14 mg/dL Normal 6-20 [facility] CBC With Platelet No Differe ntialon 10-13-2017 Erythrocyte distribution width Auto Ratio (RBC) 13.3 % Normal 11.5-14.5 [facility] Erythrocytes (RBC) 4.96 10*6/uL Normal 4.20-5.40 [facility] Hematocrit (HCT) 47.1 % Critically high 37.0-47.0 [facility] Hemoglobin mass conc (Bld) 16.2 g/dL Critically high 12.0-16.0 [facility] MCH 32.7 pg Critically high 27.0-31.3 [facility] MCHC mass conc (RBC) 34.4 % Normal 33.0-37.0 [facility] MCV 95.0 fL Normal 82.0-100.0 [facility] Platelets 223 10*3/uL Normal 130-400 [facility] WBC (Leukocytes) 6.2 10*3/uL Normal 4.8-10.8 [facility] Culture, MRSA Screenon 10-13 Culture, MRSA Screen ORDERED BY: VITO STALLWORTH: Nares Nose COLLECTED: 10/13/17 13:18ANTIBIOTICS AT [facility].: RECEIVED : 10/13/17 13:18Culture, MRSA Screen FINAL 10/14/17 13:59 No MRSA isolated Normal [facility] Partial Thromboplastin Timeo n 10-13-2017 aPTT 22.9 s Normal 21.6-35.4 [facility] Comment on above: Result Comment: Hepa rin Therapeutic Range: 38.8 - 54.6 seconds. Prothrombin Timeon 8 INR Coag RelTime (PPP) 1.0 {INR} Normal [facility] Comment on above: Result Comment: Kashif [...] Coag time (PPP) 10.0 s Normal 8.1-13.7 [facility] Type and Screen Capture 3 sc rn cellon 10-13-2017 Bilirubin (total) PATIENT: DYAN HERNANDES LOC: JESS,BILL# : [id number] : 1960 SEX: FORDERED BY: BASIM CHENG ORDERED : 10/13/2017 12:41 COLLECTED: 10/13/2017 13:24ORDER : [id number] RECEIVED : 10/13/2017 13:24 --TEST NAME RESULT UNITS RANGES ABN FL STABORH Capture A POS FAntibody 3 Cell Scrn Captu NEG F Normal [facility] Urinalysis, reflex to cultur gabbie 10-13-2017 Bilirubin Ql (U) Negative Normal Negative [facility] Urine Reflexed to Culture Not Indicated Normal [facility] Urine, clarity Clear Normal Clear [facility] Urine, color Yellow Normal Straw/Wright [facility] Urine, glucose presence Negative Normal Negative [facility] Urine, hemoglobin presence Negative Normal Negative [facility] Urine, ketones presence Negative Normal Negative [facility] Urine, leukocyte esterase presence Negative Normal Negative [facility] Urine, nitrite presence Negative Normal Negative [facility] Urine, pH 5.5 [pH] Normal 5.0-9.0 [facility] Urine, protein presence Negative Normal Negative [facility] Urine, specific gravity 1.018 Normal 1.005-1.03 [facility] Urine, urobilinogen 0.2 {Rajwinder'U}/dL Normal < 2.0 [facility] Vital Signs Date Time Vital Sign Value Performing Clinician Facility 11-06-2024 14:11-0400 Body height 165.1 cm John Ashby DO Work Phone: [facility] 11-06-2024 14:11-0400 Body mass index (BMI) [Ratio] 22.1 kg/m2 John Ball DO Work Phone: [facility] 11-06-2024 14:11-0400 Body weight 60.44 kg John Ball DO Work Phone: [facility] 10-04-2024 14:49-0400 Body height 162.6 cm Jordan [employer] DO Work Phone: [facility] 10-04-2024 14:49-0400 Body mass index (BMI) [Ratio] 28.15 kg/m2 Jordan [employer] DO Work Phone: [facility] 10-04-2024 14:49-0400 Body weight 74.39 kg Jordan [employer] DO Work Phone: [facility] 09-25-2024 10:34-0400 Body height 165.1 cm [facility] 09-25-2024 10:34-0400 Body mass index (BMI) [Ratio] 22.1 kg/m2 [facility] 09-25-2024 10:34-0400 Body weight 60.44 kg [facility] 09-25-2024 10:34-0400 Diastolic blood pressure 86 mm[Hg] [facility] 09-25-2024 10:34-0400 Heart rate 72 /min [facility] 09-25-2024 10:34-0400 Respiratory rate 16 /min [facility] 09-25-2024 10:34-0400 SaO2% (BldA) [Mass fraction] 97 % [facility] 09-25-2024 10:34-0400 Systolic blood pressure 137 mm[Hg] [facility] 09-18-2024 10:17-0400 Body height 162.6 cm Jordan [employer] Work Phone: [facility] 09-18-2024 10:17-0400 Body mass index (BMI) [Ratio] 28.15 kg/m2 Jordan [employer] DO Work Phone: [facility] 09-18-2024 10:17-0400 Body weight 74.39 kg Jordan [employer] DO Work Phone: [facility] 08-29-2024 15:44-0500 Body height 165.1 cm [facility] 08-29-2024 15:44-0500 Body mass index (BMI) [Ratio] 22 kg/m2 [facility] 08-29-2024 15:44-0500 Body weight 60.04 kg [facility] 08-29-2024 15:44-0500 Diastolic blood pressure 54 mm[Hg] [facility] 08-29-2024 15:44-0500 Heart rate 57 /min [facility] 08-29-2024 15:44-0500 Respiratory rate 12 /min [facility] 08-29-2024 15:44-0500 Systolic blood pressure 136 mm[Hg] [facility] 07-17-2024 15:06-0500 Body height 162.6 cm Jordan Brown DO Work Phone: [facility] 07-17-2024 15:06-0500 Body mass index (BMI) [Ratio] 28.15 kg/m2 Jordan Brown DO Work Phone: [facility] 07-17-2024 15:06-0500 Body weight 74.39 kg Jordan Brown DO Work Phone: [facility] 06-05-2024 14:20-0500 Body height 162.6 cm Jordan Brown DO Work Phone: [facility] 06-05-2024 14:20-0500 Body mass index (BMI) [Ratio] 28.15 kg/m2 Jordan Brown DO Work Phone: [facility] 06-05-2024 14:20-0500 Body temperature 97.5 [degF] Jordan Brown DO Work Phone: [facility] 06-05-2024 14:20-0500 Body weight 74.39 kg Jrodan Brown DO Work Phone: [facility] 05-08-2024 10:38-0400 Body height 162.6 cm Jordan Brown DO Work Phone: [facility] 05-08-2024 10:38-0400 Body mass index (BMI) [Ratio] 28.15 kg/m2 Jordan Yuan DO Work Phone: [facility] 05-08-2024 10:38-0400 Body temperature 97.39 [degF] Jordan Yuan DO Work Phone: [facility] 05-08-2024 10:38-0400 Body weight 74.39 kg Jordan Yuan DO Work Phone: [facility] 04-27-2024 13:08-0400 Heart rate 80 /min Jordan Yuan [facility] 04-27-2024 13:08-0400 SaO2% (BldA) [Mass fraction] 94 % Jordan Yuan [facility] 04-27-2024 13:08-0400 Blood Pressure Location Jordan Yuan [facility] 04-27-2024 13:08-0400 Diastolic blood pressure 72 mm[Hg] Jordan Yuan [facility] 04-27-2024 13:08-0400 Mean blood pressure 93 mm[Hg] Jordan Yuan [facility] 04-27-2024 13:08-0400 Systolic blood pressure 136 mm[Hg] Jordan Yuan [facility] 04-27-2024 13:08-0400 Respiratory rate 18 /min Jordan Yuan [facility] 04-27-2024 11:23-0400 Heart rate 72 /min Jordan Yuan [facility] 04-27-2024 11:23-0400 SaO2% (BldA) [Mass fraction] 100 % Jordan Yuan [facility] 04-27-2024 11:22-0400 Blood Pressure Location Jordan Yuan [facility] 04-27-2024 11:22-0400 Diastolic blood pressure 66 mm[Hg] Jordan Yuan [facility] 04-27-2024 11:22-0400 Mean blood pressure 86 mm[Hg] Jordan Yuan [facility] 04-27-2024 11:22-0400 Systolic blood pressure 126 mm[Hg] Jordan Yuan [facility] 04-27-2024 11:22-0400 Respiratory rate 18 /min Jordan Yuan [facility] 04-27-2024 11:15-0400 Blood Pressure Location Jordan Yuan [facility] 04-27-2024 11:15-0400 Body temperature 97.16 [degF] Jordan Yuan [facility] 04-27-2024 11:15-0400 Diastolic blood pressure 62 mm[Hg] Jordan Yuan [facility] 04-27-2024 11:15-0400 Heart rate 79 /min Jordan Yuan [facility] 04-27-2024 11:15-0400 Mean blood pressure 81 mm[Hg] Jordan Yuan [facility] 04-27-2024 11:15-0400 Respiratory rate 20 /min Jordan Yuan [facility] 04-27-2024 11:15-0400 SaO2% (BldA) [Mass fraction] 100 % Jordan Yuan [facility] 04-27-2024 11:15-0400 Systolic blood pressure 118 mm[Hg] Jordan Yuan [facility] 04-27-2024 11:05-0400 Mean blood pressure 91 mm[Hg] Jordan Yuan [facility] 04-27-2024 11:05-0400 Respiratory rate 16 /min Jordna [employer] [facility] 04-27-2024 10:50-0400 Mean blood pressure 88 mm[Hg] Jordan [employer] [facility] 04-27-2024 10:50-0400 Respiratory rate 9 /min Jordan [employer] [facility] 04-27-2024 10:10-0400 Body temperature 97.16 [degF] Jordan [employer] [facility] 04-27-2024 10:05-0400 Respiratory rate 12 /min Jordan [employer] [facility] 04-27-2024 06:23-0400 Mean blood pressure 82 mm[Hg] Jordan [employer] [facility] 04-27-2024 06:22-0400 Body temperature 97.7 [degF] Jordan [employer] [facility] 04-17-2024 15:14-0400 Body height 165.1 cm [facility] 04-17-2024 15:14-0400 Body mass index (BMI) [Ratio] 23.1 kg/m2 [facility] 04-17-2024 15:14-0400 Body weight 63.16 kg [facility] 04-17-2024 15:14-0400 Diastolic blood pressure 84 mm[Hg] [facility] 04-17-2024 15:14-0400 Heart rate 84 /min [facility] 04-17-2024 15:14-0400 Respiratory rate 12 /min [facility] 04-17-2024 15:14-0400 Systolic blood pressure 147 mm[Hg] [facility] 03-27-2024 16:24-0400 Body height 165.1 cm [facility] 03-27-2024 16:24-0400 Body mass index (BMI) [Ratio] 23.9 kg/m2 [facility] 03-27-2024 16:24-0400 Body weight 65.31 kg [facility] 03-27-2024 16:24-0400 Diastolic blood pressure 76 mm[Hg] [facility] 03-27-2024 16:24-0400 Heart rate 87 /min [facility] 03-27-2024 16:24-0400 Respiratory rate 12 /min [facility] 03-27-2024 16:24-0400 Systolic blood pressure 126 mm[Hg] [facility] 03-19-2024 12:28-0400 Diastolic blood pressure 71 mm[Hg] Jordanroman Yuan [facility] 03-19-2024 12:28-0400 Systolic blood pressure 126 mm[Hg] Jordan Yuan [facility] 03-19-2024 12:27-0400 Blood Pressure Location Jordan Yuan [facility] 03-19-2024 12:27-0400 Body temperature 97.88 [degF] Jordanroman Yuan [facility] 03-19-2024 12:27-0400 Diastolic blood pressure 78 mm[Hg] Jordanroman Yuan [facility] 03-19-2024 12:27-0400 Heart rate 75 /min Jordan Yuan [facility] 03-19-2024 12:27-0400 Mean blood pressure 94 mm[Hg] Jordan Kwabena [facility] 03-19-2024 12:27-0400 Respiratory rate 15 /min Jordanroman Yuan [facility] 03-19-2024 12:27-0400 SaO2% (BldA) [Mass fraction] 97 % Jordan Yuan [facility] 03-19-2024 12:27-0400 Systolic blood pressure 127 mm[Hg] Jordan Kwabena [facility] 02-29-2024 09:29-0400 Body height 165.1 cm [facility] 02-29-2024 09:29-0400 Body mass index (BMI) [Ratio] 24.1 kg/m2 [facility] 02-29-2024 09:29-0400 Body weight 65.82 kg [facility] 02-29-2024 09:29-0400 Diastolic blood pressure 81 mm[Hg] [facility] 02-29-2024 09:29-0400 Heart rate 74 /min [facility] 02-29-2024 09:29-0400 Respiratory rate 12 /min [facility] 02-29-2024 09:29-0400 Systolic blood pressure 129 mm[Hg] [facility] 12-28-2023 15:31-0400 Body height 165.1 cm [facility] 12-28-2023 15:31-0400 Body mass index (BMI) [Ratio] 25.7 kg/m2 [facility] 12-28-2023 15:31-0400 Body weight 70.08 kg [facility] 12-28-2023 15:31-0400 Diastolic blood pressure 75 mm[Hg] [facility] 12-28-2023 15:31-0400 Heart rate 92 /min [facility] 12-28-2023 15:31-0400 Respiratory rate 12 /min [facility] 12-28-2023 15:31-0400 Systolic blood pressure 112 mm[Hg] [facility] 11-15-2023 15:42-0400 Body height 162.6 cm Jordanroman Yuan DO Work Phone: [facility] 11-15-2023 15:42-0400 Body mass index (BMI) [Ratio] 28.15 kg/m2 Jordan [employer] DO Work Phone: [facility] 11-15-2023 15:42-0400 Body weight 74.39 kg Jordanroman Yuan DO Work Phone: [facility] 09-28-2023 15:16-0400 Body height 165.1 cm [facility] 09-28-2023 15:16-0400 Body mass index (BMI) [Ratio] 27.8 kg/m2 [facility] 09-28-2023 15:16-0400 Body weight 75.92 kg [facility] 09-28-2023 15:16-0400 Diastolic blood pressure 68 mm[Hg] [facility] 09-28-2023 15:16-0400 Heart rate 80 /min [facility] 09-28-2023 15:16-0400 Respiratory rate 12 /min [facility] 09-28-2023 15:16-0400 Systolic blood pressure 130 mm[Hg] [facility] 09-05-2023 21:48-0500 Body height 166.37 cm John Ball Other [employer] Other 09-05-2023 16:33-0500 Body height 165.1 cm [facility] 09-05-2023 16:33-0500 Body mass index (BMI) [Ratio] 28.5 kg/m2 [facility] 09-05-2023 16:33-0500 Body weight 77.79 kg [facility] 09-05-2023 16:33-0500 Diastolic blood pressure 69 mm[Hg] [facility] 09-05-2023 16:33-0500 Heart rate 97 /min [facility] 09-05-2023 16:33-0500 Systolic blood pressure 115 mm[Hg] [facility] 08-18-2023 15:40-0500 Body height 162.6 cm Jordan Yuan DO Work Phone: [facility] 08-18-2023 15:40-0500 Body mass index (BMI) [Ratio] 28.15 kg/m2 Jordan Brown DO Work Phone: [facility] 08-18-2023 15:40-0500 Body temperature 97.11 [degF] Jordan Brown DO Work Phone: [facility] 08-18-2023 15:40-0500 Body weight 74.39 kg Jordan Yuan DO Work Phone: [facility] 08-17-2023 15:00-0500 Body height 166.37 cm John Ball Other [employer] Other 08-17-2023 15:00-0500 Body mass index (BMI) [Ratio] 28.12 kg/m2 John Ball Other [employer] Other 08-17-2023 15:00-0500 Body weight 77.84 kg John Ball Other [employer] Other 08-17-2023 15:00-0500 Diastolic blood pressure 79 mm[Hg] John Ball Other [employer] Other 08-17-2023 15:00-0500 Respiratory rate 12 /min John Ball Other [employer] Other 08-17-2023 15:00-0500 Systolic blood pressure 126 mm[Hg] John Ball Other [employer] Other 04-07-2023 14:00-0400 Body temperature 97.52 [degF] Jordan [employer] [facility] 04-07-2023 14:00-0400 Diastolic blood pressure 63 mm[Hg] Jordan [employer] [facility] 04-07-2023 14:00-0400 Heart rate 88 /min Jordan [employer] [facility] 04-07-2023 14:00-0400 Mean blood pressure 76 mm[Hg] Jordan [employer] [facility] 04-07-2023 14:00-0400 SaO2% (BldA) [Mass fraction] 94 % Jordan [employer] [facility] 04-07-2023 14:00-0400 Systolic blood pressure 101 mm[Hg] Jordanroman Yuan [facility] 04-07-2023 08:47-0400 Diastolic blood pressure 75 mm[Hg] Jordan Yuan [facility] 04-07-2023 08:47-0400 Systolic blood pressure 125 mm[Hg] Jordan Yuan [facility] 04-07-2023 07:45-0400 Blood Pressure Location Jordan Yuan [facility] 04-07-2023 07:45-0400 Body temperature 97.88 [degF] Jordan Yuan [facility] 04-07-2023 07:45-0400 Diastolic blood pressure 75 mm[Hg] Jordan Yuan [facility] 04-07-2023 07:45-0400 Heart rate 72 /min Jordan Yuan [facility] 04-07-2023 07:45-0400 Hourly Rounding Jordan Yuan [facility] 04-07-2023 07:45-0400 Mean blood pressure 92 mm[Hg] Jordan Yuan [facility] 04-07-2023 07:45-0400 Promise to Return Jordan Yuan [facility] 04-07-2023 07:45-0400 Respiratory rate 16 /min Jordan Yuan [facility] 04-07-2023 07:45-0400 SaO2% (BldA) [Mass fraction] 96 % Jordan Yuan [facility] 04-07-2023 07:45-0400 Systolic blood pressure 125 mm[Hg] Jordan Yuan [facility] 04-07-2023 06:17-0400 Hourly Rounding Jordan Yuan [facility] 04-07-2023 06:17-0400 Promise to Return Jordan Yuan [facility] 04-07-2023 05:05-0400 Hourly Rounding Jordan Yuan [facility] 04-07-2023 05:05-0400 Promise to Return Jordan Yuan [facility] 04-06-2023 22:20-0400 Blood Pressure Location Jordan Yuan [facility] 04-06-2023 22:20-0400 Body temperature 98.24 [degF] Jordan Yuan [facility] 04-06-2023 22:20-0400 Heart rate 74 /min Jordan Yuan [facility] 04-06-2023 22:20-0400 Mean blood pressure 78 mm[Hg] Jordan Yuan [facility] 04-06-2023 22:20-0400 Respiratory rate 16 /min Jordan Yuan [facility] 04-06-2023 22:20-0400 SaO2% (BldA) [Mass fraction] 93 % Jordan Yuan [facility] 04-06-2023 20:10-0400 Heart rate 65 /min Jordan Yaun [facility] 04-06-2023 20:01-0400 Body temperature 97.34 [degF] Jordan Yuan [facility] 04-06-2023 20:00-0400 Mean blood pressure 86 mm[Hg] Jordan Yuan [facility] 04-06-2023 16:17-0400 Mean blood pressure 97 mm[Hg] Jordan Yuan [facility] 04-06-2023 16:16-0400 Body temperature 97.52 [degF] Jordan [employer] [facility] 04-06-2023 13:49-0400 Mean blood pressure 88 mm[Hg] Jordan Brown [facility] 04-06-2023 12:45-0400 Respiratory rate 13 /min Jordan Brown [facility] 04-06-2023 12:35-0400 Respiratory rate 10 /min Jordan Brown [facility] 04-06-2023 12:20-0400 Respiratory rate 17 /min Jordan [employer] [facility] 04-06-2023 11:37-0400 Body temperature 96.98 [degF] Jordan [employer] [facility] 04-06-2023 06:39-0400 Heart rate 68 /min Jordan [employer] [facility] 03-24-2023 14:52-0400 Diastolic blood pressure 76 mm[Hg] Jordan [employer] [facility] 03-24-2023 14:52-0400 Heart rate 67 /min Jordan [employer] [facility] 03-24-2023 14:52-0400 Mean blood pressure 99 mm[Hg] Jordan Brown [facility] 03-24-2023 14:52-0400 Systolic blood pressure 144 mm[Hg] Jordan Brown [facility] 03-24-2023 14:52-0400 Heart rate 68 /min Jordan [employer] [facility] 03-24-2023 14:52-0400 SaO2% (BldA) [Mass fraction] 99 % Jordan [employer] [facility] 03-24-2023 14:52-0400 Diastolic blood pressure 75 mm[Hg] Jordan Yuan [facility] 03-24-2023 14:52-0400 Mean blood pressure 93 mm[Hg] Jordan Yuan [facility] 03-24-2023 14:52-0400 Systolic blood pressure 128 mm[Hg] Jordan Yuan [facility] 03-24-2023 14:51-0400 Respiratory rate 16 /min Jordan Yuan [facility] 01-10-2023 15:00-0400 Body height 166.37 cm John Ball Other [facility] Other 01-10-2023 15:00-0400 Body mass index (BMI) [Ratio] 27.04 kg/m2 John Ball Other [facility] Other 01-10-2023 15:00-0400 Body weight 74.84 kg John Ball Other [facility] Other 01-10-2023 15:00-0400 Diastolic blood pressure 86 mm[Hg] John Ball Other [employer] Other 01-10-2023 15:00-0400 Respiratory rate 12 /min John Ball Other [employer] Other 01-10-2023 15:00-0400 Systolic blood pressure 124 mm[Hg] John Ball Other [employer] Other 12-09-2022 09:00-0400 Body height 166.37 cm John Ball Other [employer] Other 12-09-2022 09:00-0400 Body mass index (BMI) [Ratio] 27.33 kg/m2 John Ball Other [employer] Other 12-09-2022 09:00-0400 Body weight 75.66 kg John Ball Other [employer] Other 12-09-2022 09:00-0400 Diastolic blood pressure 71 mm[Hg] John Ball Other [employer] Other 12-09-2022 09:00-0400 Respiratory rate 12 /min John Ball Other [employer] Other 12-09-2022 09:00-0400 Systolic blood pressure 111 mm[Hg] John Ball Other [employer] Other 11-09-2022 15:00-0400 Body height 166.37 cm John Ball Other [employer] Other 11-09-2022 15:00-0400 Body mass index (BMI) [Ratio] 27.36 kg/m2 John Ball Other [employer] Other 11-09-2022 15:00-0400 Body weight 75.75 kg John Ball Other [employer] Other 11-09-2022 15:00-0400 Diastolic blood pressure 80 mm[Hg] John Ball Other [employer] Other 11-09-2022 15:00-0400 Respiratory rate 12 /min John Ball Other [employer] Other 11-09-2022 15:00-0400 Systolic blood pressure 135 mm[Hg] John Ball Other [employer] Other 07-26-2022 16:30-0500 Body height 166.37 cm John Ball Other [employer] Other 07-26-2022 16:30-0500 Body mass index (BMI) [Ratio] 26.28 kg/m2 John Ashby Other [employer] Other 07-26-2022 16:30-0500 Body weight 72.76 kg John Ashby Other [employer] Other 07-26-2022 16:30-0500 Diastolic blood pressure 78 mm[Hg] John Ashby Other [employer] Other 07-26-2022 16:30-0500 Respiratory rate 12 /min John Ashby Other [employer] Other 07-26-2022 16:30-0500 Systolic blood pressure 122 mm[Hg] John Ashby Other [employer] Other Encounters Encounter Date Encounter Type Care Provider Facility Start: 11-06-2024 End: 11-06-2024 ambulatory John Ball DO Work Phone: [facility] Work Phone: Start: 11-06-2024 End: 11-06-2024 Patient encounter procedure John Ball DO Work Phone: [facility] Work Phone: Start: 11-06-2024 End: 11-06-2024 Patient encounter procedure John Ball DO Work Phone: [facility] Start: 11-06-2024 End: 11-06-2024 ambulatory John Ball DO Work Phone: [facility] Work Phone: Start: 10-29-2024 End: 10-29-2024 ambulatory Nicki Plunkett MD Facility:[facility] Start: 10-08-2024 End: 10-08-2024 ambulatory Nicki Plunkett MD Facility: [facility] Start: 10-04-2024 End: 10-04-2024 Patient encounter procedure [...] Start: 09-28-2024 End: 09-29-2024 ambulatory Jordan Yuan [facility] Start: 09-25-2024 End: 09-25-2024 ambulatory [facility] Work Phone: Start: 09-25-2024 End: 09-25-2024 Patient encounter procedure [facility] Work Phone: Start: 09-18-2024 End: 09-18-2024 Patient encounter procedure Jordan Yuan DO Work Phone: [facility] Comment on above: S/P arthroscopy of l eft shoulder (Primary Dx) Start: 09-18-2024 End: 09-18-2024 ambulatory JORDAN YUAN Not Available Start: 08-31-2024 Non-patient / Non-visit [facility] Work Phone: Start: 08-29-2024 End: 08-29-2024 ambulatory [facility] Work Phone: Start: 08-29-2024 End: 08-29-2024 Encounter for general adult medical examination without abnormal findings [facility] Start: 08-29-2024 End: 08-29-2024 Patient encounter procedure [facility] Work Phone: Start: 08-27-2024 Patient encounter status [facility] Start: 07-17-2024 End: 07-17-2024 Patient encounter procedure [...] [facility] Start: 06-21-2024 Non-patient / Non-visit [facility] Work Phone: Start: 06-14-2024 End: 06-14-2024 Patient encounter procedure [facility] Work Phone: Start: 06-05-2024 End: 06-05-2024 ambulatory JORDAN YUAN Not Available Start: 06-05-2024 End: 06-05-2024 Patient encounter procedure Jordan Yuan DO Work Phone: [facility] Comment on above: Status post shoulder surgery (Primary Dx) Start: 05-09-2024 End: 05-09-2024 ambulatory [facility] Work Phone: Start: 05-09-2024 End: 05-09-2024 Patient encounter procedure [facility] Work Phone: Start: 05-08-2024 End: 05-08-2024 Patient encounter procedure Jordan Yuan DO Work Phone: [facility] Comment on above: Status post shoulder surgery (Primary Dx) Start: 05-08-2024 End: 05-08-2024 ambulatory JORDAN YUAN Not Available Start: 05-08-2024 End: 05-08-2024 ambulatory JORDAN YUAN Not Available Start: 04-27-2024 End: 04-27-2024 Admission to same day surgery center Jordan Yuan [facility] Start: 04-27-2024 End: 04-27-2024 ambulatory DO Jordan Yuan [facility] Start: 04-17-2024 End: 04-17-2024 ambulatory [facility] Work Phone: Start: 04-17-2024 End: 04-17-2024 Patient encounter procedure [facility] Work Phone: Start: 04-10-2024 End: 04-10-2024 ambulatory [facility] Work Phone: Start: 04-10-2024 End: 04-10-2024 Patient encounter procedure [facility] Work Phone: Start: 03-30-2024 End: 03-30-2024 ambulatory [facility] Work Phone: Start: 03-30-2024 End: 03-30-2024 Patient encounter procedure [facility] Work Phone: Start: 03-27-2024 End: 03-27-2024 ambulatory [facility] Work Phone: Start: 03-27-2024 End: 03-27-2024 Patient encounter procedure [facility] Work Phone: Start: 03-25-2024 Patient encounter status [facility] Start: 03-19-2024 End: 03-19-2024 ambulatory Jordan Yuan [facility] Start: 03-19-2024 End: 03-19-2024 Patient encounter procedure Jordan Yuan [facility] Start: 02-29-2024 End: 02-29-2024 ambulatory [facility] Work Phone: Start: 02-29-2024 End: 02-29-2024 Patient encounter procedure [facility] Work Phone: Start: 02-23-2024 End: 02-23-2024 ambulatory JORDAN YUAN Not Available Start: 02-14-2024 Non-patient / Non-visit [facility] Work Phone: Start: 02-02-2024 Non-patient / Non-visit [facility] Work Phone: Start: 12-28-2023 End: 12-28-2023 ambulatory [facility] Work Phone: Start: 12-28-2023 End: 12-28-2023 Patient encounter procedure [facility] Work Phone: Start: 11-15-2023 End: 11-15-2023 Patient encounter procedure Jordan Yuan DO Work Phone: [facility] Comment on above: Status post shoulder surgery (Primary Dx) Start: 11-15-2023 End: 11-15-2023 ambulatory JORDAN YUAN Not Available Start: 11-04-2023 End: 11-04-2023 ambulatory [facility] Start: 09-28-2023 End: 09-28-2023 ambulatory [facility] Work Phone: Start: 09-28-2023 End: 09-28-2023 Patient encounter procedure [facility] Work Phone: Start: 09-06-2023 End: 09-06-2023 ambulatory Jordan Yuan [facility] Start: 09-06-2023 End: 09-06-2023 Patient encounter procedure Jordan Yuan [facility] Start: 09-05-2023 Non-patient / Non-visit [facility] Work Phone: Start: 09-05-2023 End: 09-05-2023 ambulatory John Ashby Other [employer] Other Start: 09-05-2023 Telephone encounter John Ashby [facility] Start: 09-02-2023 Non-patient / Non-visit [facility] Work Phone: Start: 08-30-2023 Non-patient / Non-visit [facility] Work Phone: Start: 08-18-2023 End: 08-18-2023 Patient encounter procedure Jordan Yuan DO Work Phone: [facility] Comment on above: Right shoulder pain, unspecified chronicity (Primary Dx) Start: 08-18-2023 Chart abstracting Jordan do DO Work Phone: [facility] Start: 08-17-2023 End: 08-17-2023 ambulatory John Ashby Other [employer] Other Start: 08-17-2023 Encounter for genera l adult medical examination without abnormal findings John Ashby [facility] Start: 08-17-2023 Periodic preventive med est patient 40-64yrs John Ashby [facility] Start: 06-28-2023 End: 06-28-2023 ambulatory John Ashby Other [employer] Other Start: 06-28-2023 Office outpatient vi sit 15 minutes John Ashby [facility] Start: 05-06-2023 End: 05-06-2023 ambulatory John Ashby Other [employer] Other Start: 05-06-2023 Telephone encounter John SIMON [facility] Start: 04-26-2023 End: 04-26-2023 ambulatory John Ashby Other [employer] Other Start: 04-26-2023 Telephone encounter John SIMON [facility] Start: 04-06-2023 End: 04-07-2023 Admission to same day surgery center Jordan Yuan [facility] Start: 04-06-2023 End: 04-07-2023 ambulatory Jordan A Kwabena [facility] Start: 03-31-2023 End: 03-31-2023 ambulatory John Ashby Other [employer] Other Start: 03-31-2023 Telephone encounter John Ball [facility] Start: 03-26-2023 End: 03-26-2023 ambulatory John Ball Other [employer] Other Start: 03-26-2023 Telephone encounter John Ball [facility] Start: 03-24-2023 End: 03-24-2023 ambulatory Jordan Sue Kwabena [facility] Start: 03-24-2023 End: 03-24-2023 Patient encounter procedure Jordan Yuan [facility] Start: 03-21-2023 End: 03-21-2023 ambulatory John Ball Other [employer] Other Start: 03-21-2023 Telephone encounter John Ball [facility] Start: 01-12-2023 End: 01-12-2023 ambulatory John Ball Other [employer] Other Start: 01-12-2023 Telephone encounter John Ball [facility] Start: 01-10-2023 End: 01-10-2023 ambulatory John Ball Other [employer] Other Start: 01-10-2023 Office outpatient vi sit 15 minutes John Ball [facility] Start: 12-14-2022 End: 12-14-2022 ambulatory John Ball Other [employer] Other Start: 12-14-2022 Telephone encounter John Ball [facility] Start: 12-10-2022 End: 12-10-2022 ambulatory John Ashby Other [employer] Other Start: 12-10-2022 Telephone encounter John SIMON [facility] Start: 12-09-2022 End: 12-09-2022 ambulatory John Ashby Other [employer] Other Start: 12-09-2022 Office outpatient vi sit 15 minutes John Ashby [facility] Start: 11-09-2022 End: 11-09-2022 ambulatory John Ashby Other [employer] Other Start: 11-09-2022 Office outpatient vi sit 15 minutes John Ashby [facility] Start: 10-13-2022 ambulatory NARENDRANATH LAKSHMIPATHY . Facility:[facility] Start: 10-07-2022 End: 10-08-2022 ambulatory NARENDRANATH LAKSHMIPATHY . Facility:[facility] Start: 09-22-2022 End: 09-22-2022 ambulatory John Symone Other [employer] Other Start: 09-22-2022 Telephone encounter John Ashby [facility] Start: 09-16-2022 End: 09-17-[address] JOHN ASHBY Facility:[facility] Start: 08-14-2022 End: 08-14-2022 ambulatory John Ashby Other [employer] Other Start: 08-14-2022 Telephone encounter John Ashby [facility] Start: 07-26-2022 End: 07-26-2022 ambulatory John Ashby Other [employer] Other Start: 07-26-2022 Office outpatient vi sit 15 minutes John Ashby [facility] Start: 07-22-2022 Annual wellness visit John Ashby Other [employer] Other Start: 07-22-2022 Patient encounter procedure John Ashby Other [employer] Other Start: 07-09-2022 End: 07-10-[address] JOHN ASHBY Facility:[facility] Start: 06-21-2022 Adult health examination John Symone Other [employer] Other Start: 06-21-2022 Gynecological examination normal John Ashby Other [employer] Other Start: 2022 End: 06-09-[address] JOHN ASHBY Facility:[facility] Start: 06-01-2022 End: 06-01-[address] JOHN ASHBY Facility:[facility] Start: 05-24-2022 Encounter for genera l adult medical examination without abnormal findings DR JOHN ASHBY [facility] Start: 05-20-2022 End: 05-21-[address] [...] End: 03-13-2020 Patient encounter procedure MARYURI ALEXANDER Facility:[facility] Start: 03-05-2020 End: 03-20-2020 Patient encounter procedure MARYURI SENAIT Facility:[facility] Start: 10-20-2017 End: 10-21-2017 Ambulatory [facility] [place] Start: 10-13-2017 End: 10-18-[address] [facility] Procedures Date Procedure Procedure Detail Performing Clinician Start: 11-06-2024 Plain X-ray of left shoulder John Ashby DO Work Phone: Start: 06-05-2024 Arthrocentesis aspir &/inj major jt/bursa w/us Jordan Yuan DO Work Phone: Start: 05-08-2024 Radex shoulder compl ete minimum 2 views Jordan Yuan DO Work Phone: Start: 04-27-2024 Arthroscopy of shoulder Jordan Yuan Start: 11-15-2023 Radex shoulder compl ete minimum 2 views Jordan Yuan DO Work Phone: Start: 08-18-2023 Radex shoulder compl ete minimum 2 views Jordan Yuan [place] Work Phone: Start: 04-06-2023 Total shoulder replacement Jordan Yuan Start: 03-12-2020 ANESTH KNEE AREA SURGERY PRAKASH EVANS Start: 03-12-2020 ANTIONE BONE 20 SQ [...] Influenza vaccination Influenz a Vaccine (Season Ended) [facility] Start: 11-06-2024 Plain X-ray of left shoulder XR shoulder LT min 2V* [facility] Start: 11-06-2024 XR Shoulder - left Views [facility] Start: 10-04-2024 End: 10-04-2024 Patient encounter procedure 10/04/2024 2:45 PM EDT Office Visit [facility] [address] [place] [address] Jordan Yuan DO [address] [place] [address] Arrived SUNITA CHO Comment on above: Arrived Start: 09-18-2024 End: 09-18-2024 Patient encounter procedure 09/18/2024 10:00 AM EDT Office Visit [facility] [address] [place] [address] Jordan Yuan DO [address] [place] [address] [facility] Start: 07-17-2024 End: 07-17-2024 Patient encounter procedure 07/17/2024 2:45 PM EST Office Visit [facility] [address] [place] [address] Jordan Yuan DO [address] [place] [address] Arrived SUNITA CHO Comment on above: Arrived Start: 2024 Screening for malign ant neoplasm of colon [facility] Start: 06-05-2024 End: 06-05-2024 Patient encounter procedure 06/05/2024 9:15 AM EST Office Visit [facility] [address] [place] [address] Jordan Yuan, [address] [place] [address] [facility] Start: 05-08-2024 End: 05-08-2024 Patient encounter procedure 05/08/2024 10:45 AM EDT Office Visit [facility] [address] [place] [address] Jordan Yuan, [address] [place] [address] [facility] Start: 03-11-2024 Influenza vaccination Influenza Vacc ine (#1) [facility] Start: 10-04-2023 End: 10-04-2023 Patient encounter procedure 10/04/2023 3:45 PM EDT Office Visit [facility] [address] [place] [address] Jordan Yuan, [address] [place] [address] [facility] Start: 08-18-2023 End: 08-18-2023 Patient encounter procedure 08/18/2023 3:45 PM EST Office Visit [facility] [address] [place] [address] Jordan Yuan, [address] [place] [address] [facility] Start: 08-18-2023 End: 08-18-2024 C reactive protein [Mass/volume] in Serum or Plasma C-reactive protein Lab Routine Right shoulder pain, unspecified chronicity Expected: 08/18/2023 (Approximate), Expires: 08/18/2024 [facility] Comment on above: Expected: 08/18/2023 (Approximate), Expires: 08/18/2024 Start: 08-18-2023 End: 08-18-2024 CBC W Auto Differential panel - Blood CBC auto differential Lab Routine Right shoulder pain, unspecified chronicity Expected: 08/18/2023 (Approximate), Expires: 08/18/2024 [facility] Work Phone: Comment on above: Expected: 08/18/2023 (Approximate), Expires: 08/18/2024 Start: 08-18-2023 End: 08-18-2024 Erythrocyte sedimentation rate Sedimentation rate, automated Lab Routine Right shoulder pain, unspecified chronicity Expected: 08/18/2023 (Approximate), Expires: 08/18/2024 [facility] Comment on above: Expected: 08/18/2023 (Approximate), Expires: 08/18/2024 Start: 08-18-2023 End: 08-18-2024 Interleukin-6 Interleukin-6 Lab Routine Right shoulder pain, unspecified chronicity Expected: 08/18/2023 (Approximate), Expires: 08/18/2024 [facility] Comment on above: Expected: 08/18/2023 (Approximate), Expires: 08/18/2024 Start: 2000 Screening for malign ant neoplasm of breast Mammogram [facility] Start: 1990 Screening for malign ant neoplasm of cervix [facility] Start: 1981 Screening for malign ant neoplasm of cervix Pap Smear [facility] Start: 1960 Screening for malign ant neoplasm of colon [facility] Comprehensive metabo lic 1999 panel - Serum or Plasma [facility] Renal function 1999 panel - Serum or Plasma [facility] US [facility] bilateral [facility] Immunizations Immunization Date Immunization Notes Care Provider Fa doyle 05-10-2019 influenza virus vaccine, unspecified formulation Jordan Yuan DO Work Phone: [facility] 03-22-2012 tetanus and diphther ia toxoids, adsorbed, preservative free, for adult use (5 Lf of tetanus toxoid and 2 Lf of diphtheria toxoid) John Ashby Other [facility] Payers Date Payer Category Payer Private Health Insurance [id number] 2024 Medicare (Managed Care) [employer] [id number] 2024 Medicare [id number] 2024 Private Health Insurance 2021 Blue Cross Blue [facility] BCBS [id number] 2021 Unknown [id number] [id number] .[id number] 2021 [employer] Cross Blue Shield [id number] [id number] 2020 Medicare [id number]. 1.13.693.2 .[id number] 2017 Unknown [id number] 1960 Unknown [id number] 2.16.840.1.068831.3.579.2 .647 1960 Unknown [id number] 2.16.840.1.108132.3.579.2 .647 1960 Unknown [id number] 2.16.840.1.810039.3.579.2 .593 1960 Unknown [id number] 2.16.840.1.308490.3.579.2 .593 1960 Unknown [id number] 2.16.840.1.448002.3.579.2 .593 1960 Unknown [id number] 2.16.840.1.903656.3.579.2 .593 1960 Unknown [id number] 2.16.840.1.808603.3.579.2 .593 1960 Unknown [id number] 2.16.840.1.858794.3.579.2 .593 1960 Unknown [id number] 2.16.840.1.082605.3.579.2 .593 1960 Unknown [id number] 2.16.840.1.393513.3.579.2 .593 1960 Unknown [id number] 2.16.840.1.337444.3.579.2 .593 1960 Unknown [id number] 2.16.840.1.476153.3.579.2 .593 1960 Unknown [id number] 2.16.840.1.189694.3.579.2 .593 1960 Unknown [id number] 2.16.840.1.817118.3.579.2 .593 1960 Unknown [id number] 2.16.840.1.496357.3.579.2 .593 1960 Unknown [id number] 2.16.840.1.284248.3.579.2 .593 1960 Unknown [id number] 2.16.840.1.753027.3.579.2 .593 1960 Unknown [id number] 2.16.840.1.640264.3.579.2 .593 1960 Unknown [id number] 2.16.840.1.301004.3.579.2 .593 1960 Unknown [id number] 2.16.840.1.222386.3.579.2 .727 1960 Unknown [id number] 2.16.840.1.494115.3.579.2 .727 1960 Unknown [id number] 2.16.840.1.565764.3.579.2 .727 1960 Unknown [id number] 2.16.840.1.787761.3.579.2 .727 1960 Unknown [id number] 2.16.840.1.883818.3.579.2 .727 1960 Unknown [id number] 2.16.840.1.690932.3.579.2 .727 1960 Unknown [id number] 2.16.840.1.958120.3.579.2 .727 1960 Unknown [id number] 2.16.840.1.317208.3.579.2 .1259 1960 Unknown [id number] 2.16.840.1.919748.3.579.2 .1259 1960 Unknown [id number] 2.16.840.1.503618.3.579.2 .1259 1960 Unknown [id number] 2.16.840.1.445003.3.579.2 .1259 1960 Unknown [id number] 2.16.840.1.576234.3.579.2 .1259 1960 Unknown [id number] 2.16.840.1.076113.3.579.2 .1259 1960 Unknown [id number] 2.16.840.1.679433.3.579.2 .9 1960 Unknown [id number] 2.16.840.1.414552.3.579.2 .9 1960 Unknown [id number] 1960 Unknown [id number] 1960 Unknown [id number] 1960 Unknown [id number] 1960 Unknown [id number] 1959 Medicare [id number] 1959 Self-pay 1959 Unknown [id number] 1959 Unknown [id number] Unknown [id number] Social History Date Type Detail Facility Unknown if ever smoked [facility] Other Start: 07-21-2023 End: 10-04-2024 Sex Assigned At [facility] Tobacco smoking status No Smokin g Status Entered [facility] Start: 07-06-2018 End: 05-24-2023 Tobacco smoking status AZIS Ex-smoker [facility] Start: 04-10-1981 End: 07-11-1990 History of tobacco use Current smoker [facility] Start: 04-10-1981 End: 07-11-1990 History of tobacco use Cigarette Smoker [facility] Start: 05-24-2023 End: 07-17-2024 Tobacco use and exposure Smokeless tobacco non-user [facility] Start: 07-21-2023 End: 10-04-2024 Alcohol intake Current drinker of alcohol (finding) [facility] Start: 07-21-2023 End: 10-04-2024 History of [...] Start: 1960 Sex Assigned At Female F [facility] Average Number of Drinks Not on file [facility] Start: 08-29-2024 End: 11-07-2024 Sex Female (finding) [facility] Medical Equipment Procedure Code Equipment [...] Yuan DO 04/27/24 Non Biological Shoulder L {[id number]{ [id number]{[id number] FDA Start: 04-27-2024 Functional Status Date Assessment Result Facility 03-19-2024 Functional Status No [facility] 03-24-2023 Functional Status No [facility] Clinical Notes 05-29-2018 to 10-04-2024 Jordanroman Yuan - 10/04/2024 2:45 PM EDTOrlandoroman Yuan DO - 09/18/2024 10:00 AM EDT [...] tablet citalopram (CeleXA) 10 MG tablet HYDROcodone-acetaminophen ([place]) 5-325 MG tablet leflunomide (Arava) 10 MG [...] Results Imaging MRI of the left shoulder [facility] 09/28/2024 report and images reviewed. ASSESSMENT AND [...] about this procedure. We will utilize the Tornier shoulder arthroplasty platform and obtain a CT [...] note was created using voice recognition through [employer]. documented in this encounter [facility] 09-18-2024 History of Presen t illness Narrative Images from the original note were not included. @BLAYNETE@ Radha Levy Zaidi is a 64 y.o. [...] tablet citalopram (CeleXA) 10 MG tablet HYDROcodone-acetaminophen ([place]) 5-325 MG tablet leflunomide (Arava) 10 MG [...] note was created using voice recognition through [employer]. documented in this encounter [facility] 08-29-2024 Evaluation note Diagnosis Onset Date Resolution Chronic kidney disease acute Fe bruary 2024 3:15pm Essential hypertension acute Fe bruary 2024 3:15pm Heart failure with improved ejection fraction (HFimpEF) acute August 3:15pm Nonischemic cardiomyopathy acute August 29 2 025 3:15pm Pernicious anemia acute 2024 3:15pm PSVT (paroxysmal supraventricular tachycardia) acute August 29, 2 025 3:15pm Screening mammogram for breast cancer acute August 29 025 3:15pm Wellness examination acute ua2024 3:15pm Encounter for screening for malignant neoplasm of colon noneactive August 29 025 3:15pm Anemia of renal disease acute M arch 2024 10:33am Chronic kidney disease, stage 3b acute September 25, 2024 10:33am Hypertensive nephropathy acute September 25, 2024 10:33am Rheumatoid arthritis acute Adonis h 2024 10:33am [facility] Work Phone: 1(890) 603-453902-19-2025 Evaluation note* Diagnosis Onset Date Resolution Status Admit Date Chronic kidney disease acute Fe bruary 2024 3:15pm Essential hypertension acute Fe bruary 2024 3:15pm Heart failure with improved ejection fraction (HFimpEF) acute ua2024 3:15pm Nonischemic cardiomyopathy acute August 29, 2024 3:15pm Pernicious anemia acute 2024 3:15pm PSVT (paroxysmal supraventricular tachycardia) acute Fe bruary 2024 3:15pm Screening mammogram for kavon [facility] cancer acute August 29, 2 025 3:15pm Wellness examination acute 2024 3:15pm Encounter for screening for malignant neoplasm of colon noneactive 2024 3:15pm Anemia of renal disease acute M arch 2024 10:33am Chronic kidney disease, stag e 3b acute September 25, 2024 10:33am Hypertensive nephropathy acute September 25, 2024 10:33am Rheumatoid arthritis acute Adonis h 2024 10:33am Left rotator cuff tear acute Ap ril 2024 1:35pm Primary osteoarthritis, left shoulder acute November 06, 2024 1:35pm [facility] Work Phone: 1(122) 814-903501-07-2025 History of Present illness Narrative* Jordan Yuan, DO - 07/17/2024 2:45 PM EST Images [...] tablet citalopram (CeleXA) 10 MG tablet HYDROcodone-acetaminophen ([place]) 5-325 MG tablet leflunomide (Arava) 10 MG [...] SURGERY Left 04/27/2024 [facility] 1999 TOTAL SHOULDER ARTHROPLASTY Right [...] note was created using voice recognition through [employer]. documented in this encounterLiberty [id number] Evaluation note* Diagnosis Onset Date Resolution Status Admit Date Pernicious anemia acute Decembe r 2023 3:25pm Chronic kidney disease acute Fe bruary 2024 3:15pm Elevated transaminase level acute August 29, 2024 3:15pm Essential hypertension acute Fe bruary 2024 3:15pm Heart failure with improved ejection fraction (HFimpEF) acute Febr uary 2024 3:15pm Nonischemic cardiomyopathy acute August 29, 2024 3:15pm Pernicious anemia acute Februar y 2024 3:15pm PSVT (paroxysmal supraventricular tachycardia) acute Fe bruary 2024 3:15pm Screening mammogram for kavon st cancer acute August 29 025 3:15pm Wellness examination acute uary 2024 3:15pm [facility] Work Phone: 1(393) 271-217911-26-2024 History of Present illness Narrative* Jordan Yuan, DO - 06/05/2024 9:15 AM EST Images from the original note were not included. @ENCDATE@ [employer] Levy Zaidi is a 63 y.o. female [...] tablet citalopram (CeleXA) 10 MG tablet HYDROcodone-acetaminophen ([place]) 5-325 MG tablet TAKE 1 TABLET BY [...] with debridement Patient will start PT at [place]. [place]on protocol for small to medium cuff tears will be utilized. Follow up in 6 weeks. Continue to ice the shoulder and allow sufficient time for rest during the week. There are no diagnoses linked to this encounter. Jordan Yuan D.O. Attestation This note was created using voice recognition through [employer]. * ROSEMARY Hernandez - 06/05/2024 9:15 AM ESTAssociated Order(s): L Inj/Asp: L glenohumeral Post-Procedure Diagnose(s): Status post shoulder surgery L Inj/Asp: L glenohumeral on 06/05/2024 2:26 PM Indications: pain Details: 25 G needle, ultrasound-guided Medications: 2 mL betamethasone acetate-betamethasone sodium phosphate 6 (3-3) MG/ML Consent was given by the patient. documented in this encounterLiberty [id number] History of Present illness Narrative* Jordan Yuan [...] tablet citalopram (CeleXA) 10 MG tablet HYDROcodone-acetaminophen ([place]) 5-325 MG tablet TAKE 1 TABLET BY MOUTH 3 TIMES A DAY NEEDED FOR PAIN*MUS LAST 30 DAYS HYDROcodone-acetaminophen ([place]) 5-325 MG tablet 1-2 tablets, Oral, Every [...] for her medication will be sent to [facility] in [place]. Follow-up Return in 4 weeks for follow up. PT will be initiated at that time. Diagnoses and all orders for this visit: Status post shoulder surgery - XR shoulder 2+ views left - HYDROcodone-acetaminophen ([place]field) 5-325 MG tablet; Take 1-2 tablets by mouth every 4 (four) hoursif needed (pain) for up to 7 days Jordan Yuan D.O. Attestation This note was created using voice recognition through [employer]. 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 Family History: Primary malignant neoplasm of prostate Father Acute myocardial infarction Mother Procedure history: Total shoulder replacement (32470333) on 04/06/2023 at 62 Years. Cervical laminectomy (7326532571). Amputation of finger (084786212). Removal of lung, Partial (56767). Open reduction and internal fixation of fracture Leg (196965690). Foot surgery (8787741054). Lumbar discectomy (865204611). Social History Social & Psychosocial Habits Alcohol 4Risk Assessment: Denies Alcohol Use Substance Abuse 04/26/2024isk [...] Signs (last 24 hrs) Last Charted Temp Bxyesluo99.5 DegC (APR 27 06:22) Heart Rate Ywfrkdnrx75 bpm (APR 27:) IUO357 mmHg (APR 27:) DBP70 mmHg (APR 27) [...] Auto 55.1 % Lymph Auto 20.4 % Russell Auto 19.5 % HI Eos Auto 3.7 % Basophil Auto 1.3 % Neutro Absolute 2.4 E9/L Lymph Absolute 0.9 E9/L LOW Russell Absolute 0.8 E9/L Eos Absolute 0.2 E9/L Basophil Absolute 0.1 E9/L . Plan [place] [employer] Anesthesiologists (ASA) physical status classification: Class III. Anesthetic Preoperative Plan: Anesthesia General. Regional Interscalene block. Addendum by Wm Bajwa MD on April 27, 2024 8:55 EDT [place] [facility] 10-18-2024 Hospital Discharge instructions Patient Education 04/27/2024 10:08:37 Shoulder Cryocuff Patient Instructions - FT (CUSTOM) 04/27/2024 10:08:34 Post Op Patient Instructions - FT (CUSTOM) 04/27/2024 07:48:25 Iris Yuan - After Your Shoulder Arthroscopy (Custom) [place], [place] [facility] AFTER YOUR SHOULDER ARTHROSCOPY [...] your appointment. Jordan Yuan, DO [facility] [address] [place], [place] [id number] Reviewed: Follow Up Care 02/23/2024 15:25:37 With:Jordan Yuan Address: [address] [place] [address]- Business (1) When:05/08/2024 10:45:00 Comments:Call for any problems.Keep scheduled appointmentAppointment has already been scheduled [facility] 10-18-2024 NoteProgress Note-Physician Patient: RADHA ZAIDI Age: 63 years Sex: Female : 1960 Associated Diagnoses: None Author: Wm Bajwa MD Postoperative Information Postoperative disposition: Postoperative disposition: To PACU. Optimetrix number: Optimetrix number [id number]. Anesthetic utilized: General. Regional: Interscalene Block. Health [...] Discharge when meets criteria ( To home ).[facility] Hospital[facility] on above:Result Comment: Electronically Signed By: Garett CHAUHAN, Wm Mistry\.br\Date and Time Signed: 04/27/24 10:30 EDT 04-27-2024 NotePatient Education - Text [place], [place] [facility] AFTER YOUR SHOULDER ARTHROSCOPY [...] your appointment. 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 Family History: Primary malignant neoplasm of prostate Father Acute myocardial infarction Mother Procedure history: Total shoulder replacement (35356522) on 04/06/2023 at 62 Years. Cervical laminectomy (2196201737). Amputation of finger (179634563). Removal of lung, Partial (46430). Open reduction and internal fixation of fracture Leg (439307211). Foot surgery (8530448745). Lumbar discectomy (980495067). Social History Social & Psychosocial H (more content not included)...[facility] HospitalComment on above:Result Comment: Electronically Signed By: Garett CHAUHAN, Wm Mistry\.br\Date and Time Signed: 04/27/24 08:55 [id number] History of Present illness Narrative* Jordan Yuan, - 11/15/2023 3:45 PM EDT Images from the original note were not included. @ENCDATE@ Radha Zaidi is a 63 y.o. female who [...] tablet citalopram (CeleXA) 10 MG tablet HYDROcodone-acetaminophen ([place]) 5-325 MG tablet TAKE 1 TABLET BY [...] Jordan Yuan D.O. Attestation documented in this encounterLiberty HospitalRynrwboyuo97-79-1698 NoteUT Cardiology - [facility] Minh Zaidi is a 63 y.o. year old [...] In the past she was admitted to [facility] with pneumonia and empyema, underwent chest [...] mouth if needed., Disp: , Rfl: HYDROcodone-acetaminophen ([place]) 5-325 mg tablet, TAKE 1 TABLET BY [...] HDL 74. Imagin (more content not included)...[facility] 08-18-2023 History of Present illness Narrative* [...] She has been wearing her sling almost horse race timer as instructed since her last visit in July.She states her hand has improved. She points to the anterior aspect of the shoulder as the locationof her discomfort. SUBJECTIVE: MEDICATIONS: Current Outpatient Medications Medication Instructions aspirin 81 MG EC tablet 1 tablet, Oral, Daily buPROPion XL (Wellbutrin XL) 300 MG 24 hr tablet citalopram (CeleXA) 10 MG tablet HYDROcodone-acetaminophen ([place]) 5-325 MG tablet TAKE 1 TABLET BY [...] care. Jordan Yuan D.O. documented in this encounterLiberty HospitalEvvibluivf35-24-7807 Evaluation note* Encounter Date Diagnosis Assessment Notes [...] Symptoms tolerable, continue medical treatment f/u Rheumatology [facility] Other 12-19-2023 Evaluation note* Encounter Date Diagnosis [...] Jun, Immunosuppressed sta tus (ICD-10 - D84.9) [facility] Other 09-28-2023 Evaluation + Plan noteExtracted from: [...] Basic PRE Author:Hill Rai DO Date:04/06/23 Plan [place] [employer] Anesthesiologists (ASA) physical status classification: Class II. Anesthetic Preoperative Plan: Anesthesia General. Regional Interscalene block. [facility]09-28-2023 Hospital Discharge instructions Patient Education 04/07/2023 07:41:33 Iris Yuan - Shoulder Replacement (Custom) [place], [place] [facility] DISCHARGE INSTRUCTIONS: SHOULDER REPLACEMENT [...] persistent vomiting. Jordan Yuan DO [facility] [address] [place] [address] Reviewed: Follow Up Care 03/09/2023 13:56:15 With:Jordan Yuan Address: [address] [place] [address] Business (1) When:04/19/2023 14:15:00 With:JOHN ASHBY Address: [address] [place] [address] Business (1) When: Unknown [facility]09-28-2023 NotePatient: RADHA ZAIDI Age: 62 years [...] Yuan DO.br\Date and Time Signed: 04/07/23 07:42 [id number]:127 [facility]09-16-2023 Evaluation note* Encounter Date Diagnosis Assessment Notes Treatment Notes Treatment Clinical Notes Mar, Major depressive disorder, single episode, 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 Suggested referral to Report Developer [facility] Other 05-02-2023 Evaluation note* Encounter Date Diagnosis [...] normal BMI. Monitor BP while taking Adipex [facility] Other 03-30-2023 NoteCONSULTATION PROCEDURE DATE: 10/07/2022 PROCEDURE: [...] at least 80% reduction of pain symptoms.[facility] [id number] NoteCONSULTATION CONSULTATION DATE: 10/07/2022 ADDENDUM: On examination of the right shoulder, the patient did have a positive right sided full can test, a positive Neida's test, Apley's test and cross body test. All four positive on examination date 10/07/2022.[facility] HospitalAbwemwsi85-92-7717 NoteCONSULTATION CONSULTATION DATE: 10/07/2022 TO: John Ashby [...] activity modification, use of Zanaflex, Lyrica and Chesterfield. RECOMMENDATIONS: I recommend proceeding with a right [...] right shoulder without contrast and physical therapy.[facility] HospitalOhxjzwwt48-61-0912 Evaluation note* Encounter Date Diagnosis Assessment Notes Treatment Notes Treatment Clinical Notes Aug, Anemia (ICD-10 - D64.9) [facility] Other 01-16-2023 Evaluation note* Encounter Date Diagnosis [...] Healthy diet, exercise w/o change in treatment [facility] Other [id number] NoteCONSULTATION PROCEDURE DATE: 07/09/2022 PREOPERATIVE DIAGNOSIS: Right [...] will be followed up in the office.[facility] HospitalYnjnrwmd33-39-4732 NoteCONSULTATION CONSULTATION DATE: 07/09/2022 HISTORY OF PRESENT [...] possible increase in dose. She also takes Chesterfield 5/325 t.i.d. and Zanaflex 4 mg three [...] three months' time, unless otherwise indicated. [facility] HospitalCaeijxig81-45-3454 NoteCONSULTATION CONSULTATION DATE: 05/20/2022 HISTORY OF PRESENT [...] medications include Celexa, Lyrica 50 mg b.i.d., Chesterfield 5/325 t.i.d. and Zanaflex. Patient is having [...] level of C3-4. We will refill her Chesterfield at 5/325 t.i.d. Supportive home measures were discussed such as heat and a menthol heat rub, as well as vitamin compliance. The patient agrees to move forward with the plan, will be followed up in the clinic thereafter.[facility] HospitalAqsovhsh55-55-9024 NoteCONSULTATION PROCEDURE DATE: 02/17/2022 PRE AND POSTOPERATIVE [...] will be followed up in the clinic.[facility] HospitalWzyneczh95-32-3159 NotePROCEDURE: XR SHOULDER RT 2V or > COMPARISON: None. HISTORY: Pain of right shoulder joint FINDINGS: BONES:No acute fracture or dislocation. Minimal degenerative changes. Cervical fusion hardware SOFT TISSUES:Negative. No visible soft tissue swelling. EFFUSION:None visible. OTHER: Negative. IMPRESSION: No acute abnormality Electronically authenticated by: VANDANA COLLINS Date: 2022-02-16 19:11[facility]07-26-2022 NoteCONSULTATION CONSULTATION DATE: 02/02/2022 CHIEF COMPLAINT: [...] aggravates the pain. The patient currently takes Chesterfield 5/325 t.i.d., wellbutrin 150 mg, Lyrica 50 [...] point tenderness along the right bicipital tendon. Concierge Receptionist strength is maintained. IMPRESSION: Current working diagnosis [...] like to proceed. CC: John Ashby D.O.[facility] HospitalUhfvpxiv09-93-5195 NoteCONSULTATION CONSULTATION DATE: 10/22/2021 HISTORY OF PRESENT [...] her pain are pushing, pulling, standing walking, usability architect hours and activity. Cold weather and bending bother her as well. Medications include Lyrica 75 mg t.i.d., which she has not been taking for the past two months; Celexa, Chesterfield 5/325 t.i.d., Zanaflex and RINVOQ. She feels that her pain is managed well with her Chesterfield, but is concerned about the neuropathic pain [...] in need of a refill for her Chesterfield today, which we will give 5/325 t.i.d. [...] in three months' time unless otherwise indicated. [facility] Signed and Approved by: JACQUIE OLIVAS . 11/12/2021 16:27:00[facility]11-19-2018 Evaluation note* Diagnosis Onset Date Resolution Status PSVT (paroxysmal supraventricular tachycardia) acute Heart failure with improved ejection fraction (HFimpEF) acute Nonischemic cardiomyopathy a cute Orthostatic hypotension May 29, 2018 acute Anemia acute Essential hypertension acute ERICH (generalized anxiety disorder) acute Heart failure with improved ejection fraction (HFimpEF) acute Nonischemic cardiomyopathy a cute Preop exam for internal medicine acute PSVT (paroxysmal supraventricular tachycardia) [facility] Work Phone: 1(138) 702-159211-19-2018 Evaluation note* Diagnosis Onset Date Resolution Status Heart failure with improved ejection fraction (HFimpEF) acute Nonischemic cardiomyopathy a cute Orthostatic hypotension May 29, 2018 acute Anemia acute Essential hypertension acute ERICH (generalized anxiety disorder) acute Heart failure with improved ejection fraction (HFimpEF) acute Nonischemic cardiomyopathy a cute Preop exam for internal medicine acute PSVT (paroxysmal supraventricular tachycardia) acute Rheumatoid arthritis [facility] Work Phone: Evaluation + Plan note Future Appointments Appointment Date:04/06/2023 09:30:00 AM Scheduled Provider: Location:[facility] App[facility] note Future Appointments Appointment Date:04/06/2024 12:00:00 PM Scheduled Provider: Location:[facility] Appointment Type:Surgery FT [facility] Evaluation noteNo [facility] Other Evaluation note* Diagnosis Right shoulder pain, unspecified chronicity- Primary documented in this encounter [facility]* Diagnosis Onset Date Resolution Status Hypertension acute Overweight acute PSVT (paroxysmal supraventricular tachycardia) [facility] Work Phone: Evaluation note* Diagnosis Onset Date Resolution Status Hypertension acute Overweight acute PSVT (paroxysmal supraventricular tachycardia) acute Heart failure with improved ejection fraction (HFimpEF ) acute Nonischemic cardiomyopathy a [facility] Work Phone: Evaluation note* Diagnosis Status post shoulder surgery- Primary Other postprocedural status documented in this encounter [facility] HealthcareEvaluation note* Diagnosis Onset Date Resolution Status [...] anemia acute PSVT (paroxysmal supraventricular tachycardia) acute [facility] Work Phone: Evaluation note* Diagnosis Status post shoulder surgery- Primary Other postprocedural status documented in this encounter [facility] HealthcareEvaluation note* Diagnosis Status post shoulder surgery- Primary Other postprocedural status documented in this encounter [facility] HealthcareEvaluation note* Diagnosis S/P arthroscopy of left shoulder- Primary documented in this encounter [facility] HealthcareEvaluation note* Diagnosis S/P arthroscopy of left shoulder- Primary documented in this encounter [facility] HealthcareEvaluation note* Diagnosis Complete tear of left rotator cuff, unspecified whether traumatic- Primary documented in this encounter [facility] HealthcareHistory general Narrative - Reported* Type [...] Surgical History ORIF, proximal fibula Surgical History [facility] 2011 Surgical History Lumbar fusion Surgical History ACDF C4-6 05/30 Hospitalization History See Above [facility] Other History general Narrative - Reported* Type [...] Finger Surgical History Right Shoulder Arthroscopy 06/11 Surgical History Right Foot x 2 Surgical History Lumbar Spine x 2 Surgical History Cervical Spine x 2 Surgical History Hysterectomy Surgical History revision of external fixation device in L fibula, open approach Surgical History tonsillectomy and adenoidectomy Surgical History ORIF, proximal fibula Surgical History [facility] 2011 Surgical History Lumbar fusion Surgical History ACDF C4-6 05/30 Surgical History Right reverse total shoulder ar throplasty 03/2023 Hospitalization History See Above [employer] Other Hospital course Narrative No data available for this section [facility] No data available for this section [facility] No data available for this section [facility] Summary Purpose Family History No Family [...] 2024 3:15pm Screening mammogram for breast cancer [facility] 2024 3:15pm Wellness examination August 29, [...] 2024 3:15pm Screening mammogram for breast cancer [facility] 2024 3:15pm Wellness examination August 29, 2024 3:15pm Encounter for screening for malignant ne oplasm of colon August 29, 2024 3:15pm Anemia of renal disease September 25, 2024 10:33am Chronic kidney disease, stage 3b September 082024 10:33am Hypertensive nephropathy September 25 10:33am Rheumatoid arthritis September 25, 2024 10 :33am Chief Complaint Admit Date Wellness August 29, 2024 3:15pm RENAL CKD 3 September 25, 2024 10: 33am M25.512 - Pain in left shoulder November 062024 11:10am NEW LT SHOULDER PAIN MRI [facility] October 1:35pm Reason for Visit Admit Date Chronic kidney disease August 29 3:15pm Essential hypertension August 29 3:15pm Heart failure with improved ejection fra ction (HFimpEF) August 29, 2024 3:15pm Nonischemic cardiomyopathy August 3:15pm Pernicious anemia August 29, 2024 3:15pm PSVT (paroxysmal supraventricular tachyc ardia) August 29, 2024 3:15pm Screening mammogram for breast cancer [facility] 2024 3:15pm Wellness examination August 29, 2024 3:15pm Encounter for screening for malignant ne oplasm of colon August 29, 2024 3:15pm Anemia of renal disease September 25, 2024 10:33am Chronic kidney disease, stage 3b September 082024 10:33am Hypertensive nephropathy September 25 10:33am Rheumatoid arthritis September 25, 2024 10 :33am Left rotator cuff tear November 06, 2024 1:35pm Primary osteoarthritis, left shoulder Ap ril 2024 1:35pm Additional Source Comments INFORMATION SOURCE (unrecogn ized section and content) DATE CREATED AUTHOR 12/29/2017 [facility] DATE CREATED AUTHOR AUTHOR'S ORGANIZ ATION 05/13/2020 [facility] DATE CREATED AUTHOR AUTHOR'S ORGANIZ ATION 10/15/2022 [facility] DATE CREATED AUTHOR AUTHOR'S ORGANIZ ATION 11/07/2023 [facility] DATE CREATED AUTHOR AUTHOR'S ORGANIZ ATION 03/20/2024 [facility] DATE CREATED AUTHOR AUTHOR'S ORGANIZ ATION 04/29/2024 [facility] DATE CREATED AUTHOR AUTHOR'S ORGANIZ ATION 10/05/2024 [facility] DATE CREATED AUTHOR AUTHOR'S ORGANIZ ATION 10/06/2024 [facility] EPIC DATE CREATED AUTHOR AUTHOR'S ORGANIZ ATION 11/06/2024 [facility] DATE CREATED AUTHOR AUTHOR'S ORGANIZ ATION 11/15/2024 [facility] REASON FOR VISIT (unrecogniz ed section and content) Reason Comments Follow-up R rev TSA 04/06/23 Reason Comments Follow-up R shoulder pain, Rev TSA 04/06/23 poss coracoid an/or accromial fx ma Reason Comments Post-op Reason Comments Post-op Reason Comments Follow-up Reason Comments Follow-up MRI [facility] 09/28/24 Patient Care team informatio n (unrecognized section and content) Team Status: Active Member Role Status Arsenio Ashby DO Primary Care Provider Active Team Status: Inactive Member Role Status Arsenio [...] December 28, 2023 End: December 28, 2023 Air/Ocean Export Clerk Relationship Specialty Start Date End Date John Ashby MD [address] [place] [id number] PCP - General Internal Medicine 12/23/22 Air/Ocean Export Clerk Relationship Specialty Start Date End Date John Ashby MD [address] [place] [id number] PCP - General Internal Medicine 12/23/22 Team Status: Active Member Role Status Dates John Ashby DO Primary Care Provide r, Attending Provider Active Start: August 30, 2023 Team Status: Active Member Role Status Dates John Ashby DO Primary Care Provider Active Start: September 02, 2023 SHERWIN Quiroga Attending Provider Active St art: September 02, 2023 Team Status: Active Member Role Status Arsenio Ashby DO Primary Care Provider Active Start: September 05, 2023 SHERWIN Quiroga Attending Provider Active St art: September 05, 2023 Team Status: Inactive Member Role Status Arsenio Ashby DO Primary Care Provide r, Attending Provider Active Start: September 28, 2023 End: September 28, 2023 Team Status: Inactive Member Role Status Dates John Ashby DO Primary Care Provide r, Attending Provider Active Start: April 10, 2024 End: April 10, 2024 Air/Ocean Export Clerk Relationship Specialty Start Date End Date John Ashby MD [address] [place] [id number] PCP - General Internal Medicine 12/23/22 Team Status: Inactive Member Role Status Dates John Ashby DO Primary Care Provide r, Attending Provider Active Start: April 17, 2024 End: April 17, 2024 Team Status: Inactive Member Role Status Dates John Ashby DO Primary Care Provide r, Attending Provider Active Start: May 09, 2024 End: May 09, 2024 Air/Ocean Export Clerk Relationship Specialty Start Date End Date John Ashby MD [address] [facility] [place] [id number] PCP - General Internal Medicine 12/23/22 Air/Ocean Export Clerk Relationship Specialty Start Date End Date John Ashby MD [address] [place] [facility] [place] [address] PCP - General Internal Medicine 12/23/22 Air/Ocean Export Clerk Relationship Specialty Start Date End Date John Ashby MD [address] [facility] [place] [address] PCP - General Internal Medicine 12/23/22 Air/Ocean Export Clerk Relationship Specialty Start Date End Date John Ashby MD [address] [facility] [place] [address] PCP - General Internal Medicine 12/23/22 Team [...] September 25, 2024 End: September 25, 2024 Air/Ocean Export Clerk Relationship Specialty Start Date End Date John Ashby MD [address] [facility] [place] [address] PCP - General Internal Medicine 12/23/22 Team Status: Active Member Role Status Dates John Ashby DO Primary Care Provider Active Start: November 06, 2024 Ethan Padilla DO Attending Provider Active St art: November 06, 2024 Team Status: Inactive Member Role Status Dates John Ashby DO Primary Care Provider Active Start: November 06, 2024 End: November 06, 2024 Ethan Padilla DO Attending Provider Active St art: November 06, 2024 End: November 06, 2024 Goals (unrecognized section and content) Goals [...] ON THE PRIMARY CLINICAL RECORDS. [facility] [employer] [facility]. provides no warranty or guarantee of the accuracy or completeness of information in this document.
[2024-11-19 08:53] VITALS: BP 138/85; PULSE 70; TEMP 36.3; O2SAT 98
[2024-11-19 09:44] VITALS: BP 147/70; PULSE 76; O2SAT 99
[2024-11-19 09:45] VITALS: BP 149/70; PULSE 74; O2SAT 99
[2024-11-19] MEDS: BUPIVACAINE HCL 0.25% PF 25 MG/10 ML VIAL INJ (09:48)
[2024-11-19] MEDS: METHYLPREDNISOLONE ACETATE 40 MG/ML VIAL INJ (09:49)
[2024-11-19] MEDS: LIDOCAINE HCL 2% 400 MG/20 ML MDV INJ (09:49)
--- NOTE | 2024-11-19 09:49 | W.PM.PROCNOT ---
Date of procedure: 11/19/24 Pre-op diagnosis: Pain due to left shoulder osteoarthritis Post-op diagnosis: same as pre-op Procedure: Procedure: Left suprascapular and axillary nerve block Medications: Bupivaciane 0.25% 2cc, depomedrol 40mg The patient was seen and examined in the preoperative holding area. Informed consent was obtained and placed on the chart.? The patient was brought to the medical procedure unit and placed in the prone position. A timeout was completed verifying correct patient, procedure site, positioning, plan, and special equipment.? Using aseptic technique, under direct fluoroscopic visualization, a 25-gauge 3-1/2 inch spinal needle was advanced to the superior portion of the left posterior osseous rim of the glenoid fossa, lateral and superior to the spinal glenoid notch.? 0.5 cc of the above solution was injected.? The needle was then redirected 3 mm inferiorly and another 0.5 cc of the above medication was injected.? This needle was then removed.? Using aseptic technique, under direct fluoroscopic visualization, another 25-gauge 3-1/2 inch spinal needle was advanced toward the most inferior and lateral border of the greater tubercle.? 0.5 cc of the above medication was administered.? The needle was then redirected 3 mm inferiorly.? 0.5 cc was administered in this region.? This needle was removed. ? The patient was taken to the postprocedural recovery area and monitored for an appropriate length of time before being found suitable for discharge in the accompaniment of a responsible adult. Anesthesia: Local Surgeon: Nicki Plunkett Pathology: none sent Condition: stable Disposition: no change
[2024-11-19] MEDS: IOHEXOL 240 MG/ML - 10 ML VIAL 12 MG INJ (09:50)
== END 2024-11-19 09:52 | disposition home or self-care (01) ==
PROVIDERS: PCP Internal Medicine; Visit Provider Anesthesiology
DX: M19.012 Primary osteoarthritis, left shoulder (principal); M25.512 Pain in left shoulder
CPT/HCPCS: 64417; 64418; J0665; J1010; Q9966

== ENCOUNTER 2024-12-05 13:31 | Outpatient (OUT) | payer MEDICARE, SELFPAY ==
--- OUTSIDE RECORDS SUMMARY | 2024-12-05 13:34 | XMS_ITS | Clinical Summary ---
Author Organization [employer] Address [id number] [address] [place] [address] Care Team Providers Care Jive Developer Name Role Phone John Mcdaniels DO Primary Care Provider [phone] Allergies No known active allergies Medications dilTIAZem CD (CARDIZEM CD) 360 MG 24 hr capsule Take 360 mg by mouth daily. Active citalopram (CeleXA) 20 mg tablet Take 20 mg by mouth daily. Active leflunomide (ARAVA) 10 mg tablet Take 10 mg by mouth daily. Active pregabalin (LYRICA) 50 mg capsule Take 50 mg by mouth 3 (three) times a day. Active piperacillin-ta zobactam (ZOSYN) 3.375 gram injection Infuse 3.375 g into a venous catheter 3 (three) times a day. ORDER STATES THROUGH May 8 Active tiZANidine (ZANAFLEX) 4 mg tablet Take 4 mg by mouth 3 (three) times a day. Active metoprolol succinate XL (TOPROL XL) 25 mg 24 hr tablet Take 25 mg by mouth daily. Active traZODone (DESYREL) 100 mg tablet Take 100 mg by mouth nightly. Active buPROPion SR (WELLBUTRIN SR) 100 mg 12 hr tablet Take 300 mg by mouth daily. Active HYDROcodone-nic taminophen (XODOL) 5-300 mg per tablet Take 1 tablet by mouth every 8 (eight) hours as needed for pain. Active ibuprofen (ADVIL,MOTRIN) 800 mg tablet Take 800 mg by mouth 3 (three) times a day. Active sodium chloride (NORMAL SALINE FLUSH) injection Infuse 10 mL into a venous catheter daily. Active heparin sodium,porcine (HEPARIN, PORCINE,) 10,000 unit/mL injection Infuse 10,000 Units/mL into a venous catheter daily. Active ALTEPLASE CATH Infuse 2 mg into a venous catheter once. SKILLED NURSE TO INSTILL ALTEPLASE 2 MG PER 2 ML IV TO AFFECTED CVAD LUMEN(S) PER AGENCY POLICY. PATIENT NEEDS BOTH LUMENS TREATED. 8 Active Social History Tobacco Use Types Packs/Day Years Used Date Smoking Tobacco: Never Assessed Childcare Answer Date Recorded Childcare Unknown 12/20/2018 Employment Answer Date Recorded Employment Unknown 12/20/2018 Purpose - Life Answer Date Recorded Purpose and direction in life Unknown Comments Unknown Sex and Gender Information Value Date Recorded Sex Assigned at Not on file Legal Sex Female 12:08 PM EDT Gender Identity Not on file Sexual Orientation Not on file Last Filed Vital Signs Vital Sign Reading Time Taken Comments Blood Pressure 108/60 2018 6:56 PM EST Pulse 90 2018 6:56 PM EST Temperature 36.9 C (98.4 F) 2018 6:56 PM EST Respiratory Rate 18 2018 6:56 PM EST Oxygen Saturation 89% 06/07/2018 10:03 AM EST Inhaled Oxygen Concentration - - Weight - - Height - - Body Mass Index - - Plan of Treatment Not on file Medical Devices Not on file Insurance [employer] [facility] Care Teams Jive Developer Relationship Specialty Start Date End Date John Mcdaniels DO [address] [place] [address] PCP - General Internal Medicine 05/16/18
--- OUTSIDE RECORDS SUMMARY | 2024-12-05 13:34 | XMS_ITS | Encounter Summary ---
Author Organization [facility] Address [address] [facility] [place] [address] Care Team Providers Care Loss Prevention Manager Name Role Phone John Mcdaniels DO Primary Care Provider Encounter Details Date Type Department Care Team (Late st Contact Info) Description 09/20/2023 Orders Only [facility] [address] [place] [address] Kate Scruggs ARRT [address] [place] [address] Social History Tobacco Use Types Packs/Day Years Used Date Smoking Tobacco: Former Cigarettes Q uit: 07/11/1990 Smokeless Tobacco: Never Alcohol Use Standard Drinks/Week Comments Yes 0 (1 standard drink = 0.6 oz pur e alcohol) caffiene 1-2 cups daily AUDIT-C Answer Date Recorded Q1: How often do you have a drink containing alc ohol? Monthly or less 09/10/2023 Average Number of Drinks Not on file 024 Frequency of Binge Drinking Not on file 08/2023 Comments Unknown Sex and Gender Information Value Date Recorded Sex Assigned at Not on file Legal Sex Female 7:32 PM EDT Gender Identity Not on file Sexual Orientation Not on file documented as of this encounter Plan of Treatment Not on file documented as of this encounter Visit Diagnoses Not on filedocumented in this encounter Care Teams Loss Prevention Manager Relationship Specialty Start Date End Date John Mcdaniels DO PCP - General Internal Medicine 12/23/22 documented as of this encounter
--- OUTSIDE RECORDS SUMMARY | 2024-12-05 13:34 | XMS_ITS | Encounter Summary ---
Author Organization [facility] Address [address] [facility] [place] [address] Care Team Providers Care Conveyor Technician Name Role Phone John Mcdaniels DO Primary Care Provider [phone] Encounter Details Date Type Department Care Team (Late st Contact Info) Description 04/27/2024 Abstract [facility] [address] [place] [address] Jordan Barron DO [address] [place] [place] [address] Social History Tobacco Use Types Packs/Day Years Used Date Smoking Tobacco: Former Cigarettes 1 10 1 - 07/11/1990 Smokeless Tobacco: Never Alcohol Use Standard Drinks/Week Comments Yes 3 (1 standard drink = 0.6 oz pur [...] on filedocumented in this encounter Care Teams Conveyor Technician Relationship Specialty Start Date End Date John Mcdaniels DO PCP - General Internal Medicine 12/23/22 documented as of this encounter
--- OUTSIDE RECORDS SUMMARY | 2024-12-05 13:35 | XMS_ITS | Referral Summary ---
Author Organization [facility] Address [address] [place] [address] Care Team Providers Care Rock Cutter Name Role Phone John Mcdaniels DO Primary Care Provider [phone] Allergies No known active allergies Medications Medication Sig Dispensed Refills Start Date End Date Status acetaminophen (Tylenol) 325 mg tablet Take 650 mg by mouth. 10/21/2017 Active aspirin 81 mg EC tablet Take 1 tablet by mouth in the morning. Active buPROPion XL (Wellbutrin XL) 300 mg 24 hr tablet Take 300 mg by mouth. 03/24/2023 Active citalopram (CeleXA) 20 mg tablet TAKE 1 TABLET BY MOUTH EVERY DAY AT BEDTIME *BEGIN AFTER 30 DAYS* 06/20/2017 Active docusate sodium (Colace) 100 mg capsule Take 100 mg by mouth if needed. 04/06/2023 Active HYDROcodone-acetam inophen ([place]) 5-325 mg tablet TAKE 1 TABLET BY MOUTH 3 TIMES A DAY NEEDED FOR PAIN*MUS LAST 30 DAYS 06/30/2023 Active leflunomide (Arava) 10 mg tablet 10 mg. 06/07/2017 Active methylPREDNISolone (Medrol Dospak) 4 mg tablets 10/22/2023 Active omeprazole (PriLOSEC) [address] capsule 40 mg. 09/27/2023 Active pregabalin (Lyrica) 150 mg capsule 10/25/2023 Active tiZANidine (Zanaflex) 4 mg tablet tizanidine 4 mg tablet 04/30/2017 Active Rinvoq 15 mg tablet extended release 24 hr 10/21/2023 Active valACYclovir (Valtrex) 1 gram tablet 11/03/2023 Active lisinopril 5 mg tabletIndications: Chronic systolic congestive heart failure (CMS/HCC) Take 1 tablet (5 mg) by mouth in the morning. 90 tablet 3 11/04/2023 Active metoprolol succinate XL (Toprol-XL) 100 mg 24 hr tabletIndications: Chronic systolic congestive heart failure (CMS/HCC) Take 1 tablet (100 mg) by mouth in the morning. Do not crush or chew. 90 tablet 3 08/24/2024 08/24/2025 Active Active Problems Problem Noted Date Diagnosed Date Chronic systolic congestive heart failure 2023 Nonischemic cardiomyopathy 11/04/2023 Mixed hyperlipidemia 11/04/2023 Social History Tobacco Use Types Packs/Day Years Used Date Smoking Tobacco: Never Assessed [place] Safety & Environment Answer Date Rec orded Fear of Current or Ex-Partner Not on file Emotionally Abused Not on file 09/01/2023 Physically Abused Not on file 09/01/2023 Sexually Abused Not on file 09/01/2023 Physically or Sexually Abused Not on file Sex and Gender Information Value Date Recorded Sex Assigned at Not on file Gender Identity Not on file Sexual Orientation Not on file Last Filed Vital Signs Vital Sign Reading Time Taken Comments Blood Pressure 128/82 11/04/2023 3:25 PM EDT Pulse 84 11/04/2023 3:25 PM EDT Temperature 36.3 C (97.3 F) 06/25/2019 9:18 AM EST Respiratory Rate 16 11/04/2023 3:25 PM EDT Oxygen Saturation 97% 11/04/2023 3:25 PM EDT Inhaled Oxygen Concentration - - Weight 75.2 kg (165 lb 12.8 oz) 11/04/2023 3:25 PM EDT Height 165.1 cm (5' 5 ) 11/04/2023 3:25 PM EDT Body Mass Index 27.59 11/04/2023 3:25 PM EDT Plan of Treatment Upcoming Encounters Date Type Department Care Team (Late st Contact Info) Description 12/10/2024 3:45 PM EDT Office Visit [facility] at [facility] [address] [place] [address] Yakov Trotter MD [address] [facility] [address] [facility] [address] Care Teams Rock Cutter Relationship Specialty Start Date End Date John Mcdaniels DO [address] [place] [facility] [place] [phone] PCP - General 11/08/23
--- OUTSIDE RECORDS SUMMARY | 2024-12-05 13:35 | XMS_ITS | Clinical Summary ---
Author Organization [facility] Address [address] [place] [address] Care Team Providers Care Ethnic Origins Teacher Name Role Phone John Mcdaniels DO Primary Care Provider [phone] Allergies No known active allergies Medications Medication [...] mouth if needed. 04/06/2023 Active HYDROcodone-acetam inophen ([place]) 5-325 mg tablet TAKE 1 TABLET BY [...] 3:25 PM EDT Oxygen Saturation 97% 11/04/2023 3: 25 PM EDT Inhaled Oxygen Concentration - - Weight 75.2 kg (165 lb 12.8 oz) 11/04/2023 3:25 PM EDT Height 165.1 cm (5' 5 ) 11/04/2023 3:25 PM EDT Body Mass Index 27.59 11/04/2023 3:25 PM EDT Plan of Treatment Upcoming Encounters Date Type Department Care Team (Late st Contact Info) Description 12/10/2024 3:45 PM EDT Office Visit [facility] Heart at [facility] [address] [place] [address] Yakov Trotter MD [address] [facility] 1 [facility] [place] [address] Health Maintenance Due Date Last Done Comments CT Colonography 1960 Colonoscopy 1960 Colorectal Cancer Screening 1960 FIT-DNA 1960 FIT 1960 FOBT 1960 Medicare Annual Wellness (AWV) 1960 Medicare Initial Physical (IPPE) 1960 Sigmoidoscopy 1960 Pneumococcal Vaccine: Pediatrics (0 to 5 Years) and At-Risk Patients (6 to 64 Years) (1 of 2 - PCV) 1966 Depression Screening 1972 Pap Smear 1981 Cervical Cancer Screening 1990 HPV/Cotest 1990 Mammogram 2000 Zoster Vaccines (1 of 2) 2010 COVID-19 Vaccine (3 - 2023-2 5 season) 2024 10/30/2020, 10/10/2020 Influenza Vaccine (Season Ended) 2025 05/10/2019, 04/19/2018 Adult Tetanus 04/21/2034 04/21/2024 HIB Vaccines Aged Out No longer eligi ble based on patient's age to complete this topic HPV Vaccines Aged Out No longer eligi ble based on patient's age to complete this topic IPV Vaccines Aged Out No longer eligi ble based on patient's age to complete this topic Meningococcal B Vaccine Aged Out No l onger eligible based on patient's age to complete this topic Meningococcal Vaccine Aged Out No gabo hernando eligible based on patient's age to complete this topic Rotavirus Vaccines Aged Out No longer eligible based on patient's age to complete this topic Care Teams Ethnic Origins Teacher Relationship Specialty Start Date End Date John Mcdaniels DO [address] [facility] [place] [address] PCP - General 11/08/23
--- OUTSIDE RECORDS SUMMARY | 2024-12-05 13:35 | XMS_ITS | Encounter Summary ---
Author Organization [facility] Address [address] [place] [address] Care Team Providers Care Food Processor Name Role Phone John Mcdaniels DO Primary Care Provider [phone] Reason for Visit * Reason Comments Medication Refill Encounter Details Date Type Department Care Team (Late st Contact Info) Description 10/13/2020 [email or web address] [address], [address] [place], [place] [id number] [place] [address] [place] [address] [address] [place], [place] [id number] Medication Refill Social History Tobacco Use Types Packs/Day Years Used Date Smoking Tobacco: Former Cigarettes Q uit: 1990 Smokeless Tobacco: Never Alcohol Use Standard Drinks/Week Comments Yes 0 (1 standard drink = 0.6 oz pur e alcohol) weekends 1 beer or glass wine Comments No Sex and Gender Information Value Date Recorded Sex Assigned at Not on file Legal Sex Female 5:12 PM EST Gender Identity Not on file Sexual Orientation Not on file documented as of this encounter Plan of Treatment Not on file documented as of this encounter Visit Diagnoses Diagnosis Cervical radiculopathy Brachial neuritis or radiculitis nos Cervical spondylosis without myelopathy documented in this encounter Care Teams Food Processor Relationship Specialty Start Date End Date John Mcdaniels DO PCP - General Internal Medicine 10/11/17 documented as of this encounter
--- OUTSIDE RECORDS SUMMARY | 2024-12-05 13:35 | XMS_ITS | Encounter Summary ---
Author Organization [facility] Address [address] [place] [address] Care Team Providers Care Buggy Ladle Tender Name Role Phone John Mcdaniels DO Primary Care Provider [phone] Reason for Visit * Reason Onset Date Comments Medication Refill Medication Refill 04/04/2019 Medication Refill 04/10/2019 Encounter Details Date Type Department Care Team (Late st Contact Info) Description 04/04/2019 Refill [place] [address], [address] [place] [address] Prosper Gomes MD Medication Refill; Medication Refill; Medication Refill Social History Tobacco Use Types [...] myelopathy documented in this encounter Care Teams Buggy Ladle Tender Relationship Specialty Start Date End Date John Mcdaniels DO PCP - General Internal Medicine 10/11/17 documented as of this encounter
--- OUTSIDE RECORDS SUMMARY | 2024-12-05 13:35 | XMS_ITS | Encounter Summary ---
Author Organization [facility] Address [address] [place] [address] Care Team Providers Care Record Press Supervisor Name Role Phone John Mcdaniels DO Primary Care Provider [phone] Reason for Visit * Reason Comments Medication Refill Encounter Details Date Type Department Care Team (Late st Contact Info) Description 12/24/2019 Refill [facility] [address], [address] [place] [address] Prosper Gomes MD Medication Refill Social History Tobacco Use Types [...] myelopathy documented in this encounter Care Teams Record Press Supervisor Relationship Specialty Start Date End Date John Mcdaniels DO PCP - General Internal Medicine 10/11/17 documented as of this encounter
--- OUTSIDE RECORDS SUMMARY | 2024-12-05 13:35 | XMS_ITS | Clinical Summary ---
Author Organization [facility] Healthcare Address [address] [place] [place] [address] Care Team Providers Care Night Supervisor Name Role Phone Arslan John Diandra CAMPOS Primary Care Provider [phone] Allergies Active Allergy Reactions Criticality Noted Date Comments Cephalexin GI intolerance 06/30/2018 Medications leflunomide (Arava) 10 MG tablet leflunomide 10 mg tablet Active metoprolol succinate XL (Toprol-XL) 100 MG 24 hr tablet metoprolol succinate ER 100 mg tablet,extended release 24 hr TAKE 1 TABLET DAILY Active omeprazole (PriLOSEC) [address] capsule omeprazole 40 mg capsule,delayed release Active tiZANidine (Zanaflex) 4 MG tablet tizanidine 4 mg tablet Active Rinvoq 15 MG tablet sustained-releas e 24 hour Daily. Active buPROPion XL (Wellbutrin XL) 300 MG 24 hr tablet 3 Active pregabalin (Lyrica) 150 MG capsule 3 Active valACYclovir (Valtrex) 1 g tablet Take 2,000 mg by mouth in the morning and 2,000 mg before bedtime. 3 Active HYDROcodone-acet aminophen (Luray) 5-325 MG tablet 3 Active citalopram (CeleXA) 10 MG tablet 4 Active acetaminophen (Tylenol Extra Strength) 500 MG tabletIndication s:Status post shoulder surgery Take 1 tablet (500 mg) by mouth every 4 (four) hours if needed for mild pain 40 tablet 4 Active lidocaine (Lidoderm) 5 % patchIndications :Bilateral shoulder pain, unspecified chronicity Apply 1 patch over 12 hours topically Daily Remove & discard patch within 12 hours or as directed by . 30 patch 5 4 12/11/19 25 Active Active Problems No known active problems Encounters Date Type Department Care Team Description 10/04/2024 2:45 PM EDT Office Visit [facility] [address] [place] [id number] Jordan Barron DO Complete tear of left rotator cuff, unspecified whether traumatic (Primary Dx) 10/04/2024 Bamboo flowsheet [facility] [address] [place] [id number] Jordan Barron DO 10/04/2024 Travel 09/28/2024 Clinisync Result Encounter [facility] External Department Unsolicited Jordan Barron DO 09/18/2024 10:00 AM EDT Office Visit [facility] [address] [place] [phone] Jordan Barron DO S/P arthroscopy of left shoulder (Primary Dx) 09/18/2024 Bamboo flowsheet [facility] [address] [place] [id number] Jordan Barron DO 09/18/2024 Travel from Last 3 Months Family History Medical History Relation Name Comments Cancer Father Pete Mansfield Diabetes Father Pete Mansfield Hypertension Father Pete Mansfeild Stroke Father Pete [place] Cancer Mother Clarice Alvarado Diabetes Mother Clarice Alvarado Broken bones Sister Aiyana Pierre Relation Name Status Comments Father Pete Mansfield Alive Mother Clarice Alvarado Alive Sister Aiyana Pierre Social History Tobacco Use Types Packs/Day Years Used Date Smoking Tobacco: Former Cigarettes 1 10 1 - 07/11/1990 Smokeless Tobacco: Never Tobacco Cessation:Counseling Given: Not Answered Alcohol Use Standard Drinks/Week Comments Yes 3 [...] Sign Reading Time Taken Comments Blood Pressure - - Pulse - - Temperature 36.4 C (97.5 F) 06/05/2024 2:20 PM EST Respiratory Rate - - Oxygen Saturation - - Inhaled Oxygen Concentration - - Weight 74.4 kg (164 lb) 10/04/2024 2:49 PM EDT Height 162.6 cm (5' 4 ) 10/04/2024 2:49 PM EDT Body Mass Index 28.15 10/04/2024 2:49 PM EDT Plan of Treatment Health Maintenance Due Date Last Done Comments CT Colonography 1960 Colonoscopy 1960 FIT 1960 FOBT 1960 Sigmoidoscopy 1960 Pap Smear 1981 Cervical Cancer Screening 1990 HPV/Cotest 1990 Mammogram 2000 Colorectal Cancer Screening 2024 FIT-DNA 2024 2021 Influenza Vaccine (Season Ended) 2025 05/10/20 19, 04/19/2018 Procedures Procedure Name Priority Date/Time Associated Diagnosis Comments MRI SHOULDER W/O CONTRAST LEFT 09/28/2024 5:50 PM EDT from Last 3 Months Results * MRI SHOULDER W/O CONTRAST LEFT (09/28/2024 5:50 PM EDT) Anatomical Region Laterality Modality Other 09/28/2024 5:50 PM EDT Narrative 09/30/2024 9:44 AM EDT Exam Date/Time: 09/28/2024 18:24 EDT Reason for [...] the axillary recess. Report Ordering Provider: Jordan Barron FINAL REPORT Dictated: 09/30/2024 9:41 am Gigi Suazo DO Signed (Electronic Signature): 09/30/2024 9:41 am Signed by: Gigi Suazo DO Transcribed by: DANISHA Technologist: TED Procedure Note Radiology, Radiologist, - 09/30/2024 Exam Date/Time: 09/28/2024 18:24 EDT Reason for Exam: M25.512, Z98.890 Report IMPRESSION: FULL-THICKNESS TEAR OF DISTAL SUPRASPINOUS TENDON. MILD ATROPHY ANDINFILTRATION OF SUPRASPINATUS MUSCLE. NEAR FULL-THICKNESS TEAR OF MID FIBERS OF SUBSCAPULARIS TENDON ASDETAILED. LOW-GRADE INTRASUBSTANCE TEAR ALONG THE MYOTENDINOUS JUNCTION OFINFRASPINATUS. FULL-THICKNESS TEAR OF THE LONG HEAD BICEPS TENDON. DIFFUSE LABRAL DEGENERATION/TEARING. EXAM: MRI Shoulder w/o Contrast Left HISTORY: Shoulder pain and limited range of motion. History of bicepsrepair 6 months ago. TECHNIQUE: Multiplanar multisequence MRI of the shoulder was performedwithout contrast. COMPARISON: None available. FINDINGS: Mild degenerative changes of the acromial clavicular joint withoutundersurface osteophyte formation. The acromion is slightly curved. Os acromiale.Coracoclavicular ligament intact. Moderate amount of subacromial/subdeltoid bursal fluid. Postsurgical changes of rotator cuff repair. Full-thickness tear ofdistal supraspinatus tendon with retraction of torn fibers to the level of theglenohumeral joint. Low-grade intrasubstance tear along the myotendinous junction of infraspinatus. There are full-thickness tear of mid fibers ofsubscapularis tendon at the level of the glenoid. Teres minor tendon is intact. Mild atrophy andfatty infiltration of supraspinatus muscle. High riding humeral head.Nonspecific edema within the humeral head without evidence fracture. Posterior changes of biceps tenodesis. Full-thickness tear of the longhead biceps tendon. Diffuse labral degeneration/tearing. No well-defined or measurablecartilage defect. Moderate glenohumeral joint effusion with areas of synovitis and/or tinyloose bodies within the axillary recess. Report Ordering Provider: Jordan Barron FINAL REPORT Dictated: 09/30/2024 9:41 am Gigi Suazo DO Signed (Electronic Signature): 09/30/2024 9:41 am Signed by: Gigi Suazo DO Transcribed by: DANISHA Technologist: TED Jordan Barron DO [facility] Final Result from Last 3 Months Insurance A[employer] MEDICARE COMPLETE Care Teams Night Supervisor Relationship Specialty Start Date End Date John Mcdaniels DO PCP - General Internal Medicine 12/23/22
--- OUTSIDE RECORDS SUMMARY | 2024-12-05 13:35 | XMS_ITS | Encounter Summary ---
Author Organization [facility] Address [address] [place] [address] Care Team Providers Care Studio Set Up Worker Name Role Phone John Mcdaniels DO Primary Care Provider [phone] Reason for Visit * Reason Onset Date Comments Other 11/03/2018 Records for 05/13 , 09/08/18 faxed to [facility]. Encounter Details Date Type Department Care Team (Late st Contact Info) Description 11/03/2018 Telephone [facility] [address], [address] [place], [place] [id number] Prosper Gomes MD Other (Records for 06/09/18, 09/08/18 faxed to [facility].) Social History Tobacco Use Types Packs/Day Years [...] on filedocumented in this encounter Care Teams Studio Set Up Worker Relationship Specialty Start Date End Date John Mcdaniels DO PCP - General Internal Medicine 10/11/17 documented as of this encounter
--- OUTSIDE RECORDS SUMMARY | 2024-12-05 13:35 | XMS_ITS | Encounter Summary ---
Author Organization [facility] Address [address] [facility] [place] [address] Care Team Providers Care Drug Abuse Counselor Name Role Phone John Mcdaniels DO Primary Care Provider [phone] Encounter Details Date Type Department Care Team (Late st Contact Info) Description 01/25/2023 Abstract [facility] [address] [place] [phone] Jordan Barron DO [address] [place] [address] Social History Tobacco Use Types Packs/Day Years Used Date Smoking Tobacco: Former Cigarettes Q uit: 1990 Alcohol Use Standard Drinks/Week Comments Yes 0 (1 standard drink = 0.6 oz pur e alcohol) caffiene 1-2 cups daily AUDIT-C Answer Date Recorded Q1: How often do you have a drink containing alc ohol? 2-4 times a month 12/30/2022 Q2: How many drinks containi ng alcohol do you have on a typical day when you are drinking? 1 or 2 12/30/2022 Q3: How often do you have si x or more drinks on one occasion? Weekly 12/30/2022 Comments Unknown Sex and Gender Information Value Date Recorded Sex Assigned at Not on file Legal Sex Female 7:32 PM EDT Gender Identity Not on file Sexual Orientation Not on file documented as of this encounter Plan of Treatment Not on file documented as of this encounter Visit Diagnoses Not on filedocumented in this encounter Care Teams Drug Abuse Counselor Relationship Specialty Start Date End Date John Mcdaniels DO PCP - General Internal Medicine 12/23/22 documented as of this encounter
--- OUTSIDE RECORDS SUMMARY | 2024-12-05 13:36 | XMS_ITS | Encounter Summary ---
Author Organization [facility] Address [address] [facility] [place] [address] Care Team Providers Care Embroidery Assistant Name Role Phone John Mcdaniels DO Primary Care Provider [phone] Encounter Details Date Type Department Care Team (Late st Contact Info) Description 04/06/2023 Clinisync Result Encounter [facility] External Department Unsolicited Jordan Barron, [address] [place], [place] [id number] Social History Tobacco Use Types Packs/Day Years [...] on file documented as of this encounter Procedures Procedure Name Priority Date/Time Associated Diagnosis Comments XR SHOULDER COMPLETE RIGHT 04/06/2023 11:41 AM EDT documented in this encounter Results * XR SHOULDER COMPLETE RIGHT (04/06/2023 11:41 AM EDT) Anatomical Region Laterality Modality Other 04/06/2023 11:4 1 AM EDT Narrative 04/06/2023 2:06 PM EDT Exam Date/Time: 04/06/2023 11:58 EDT Reason for Exam: Post Op Report IMPRESSION: Postsurgical changes of right shoulder arthroplasty. EXAM: XR Shoulder Complete Right HISTORY: Postoperative evaluation shoulder arthroplasty TECHNIQUE: Frontal and lateral views of the right shoulder COMPARISON: CT 03/24/2023 FINDINGS: Postsurgical changes of shoulder arthroplasty including soft tissue emphysema. Alignment is anatomic. No periprosthetic abnormality. Ordering Provider: Jordan Barron FINAL REPORT Dictated: 04/06/2023 2:03 pm Gigi Suazo DO Signed (Electronic Signature): 04/06/2023 2:03 pm Signed by: Gigi Suazo DO Transcribed by: DANISHA Technologist: GARRET Technical Comments Radiation Dose: Ka,r in mGy = na DAP = na Procedure Note Radiology, Radiologist, MD - 04/07/2023 Exam Date/Time: 04/06/2023 11:58 EDT Reason for Exam: Post Op Report IMPRESSION: Postsurgical changes of right shoulder arthroplasty. EXAM: XR Shoulder Complete Right HISTORY: Postoperative evaluation shoulder arthroplasty TECHNIQUE: Frontal and lateral views of the right shoulder COMPARISON: CT 03/24/2023 FINDINGS: Postsurgical changes of shoulder arthroplasty including soft tissueemphysema. Alignment is anatomic. No periprosthetic abnormality. Ordering Provider: Jordan Barron FINAL REPORT Dictated: 04/06/2023 2:03 pm Gigi Suazo DO Signed (Electronic Signature): 04/06/2023 2:03 pm Signed by: Gigi Suazo DO Transcribed by: DANISHA Technologist: GARRET Technical Comments Radiation Dose: Ka,r in mGy = na DAP = na Jordan Barron DO [facility] Final Result documented in this encounter Visit Diagnoses Not on filedocumented in this encounter Care Teams Embroidery Assistant Relationship Specialty Start Date End Date John Mcdaniels DO PCP - General Internal Medicine 12/23/22 documented as of this encounter
--- OUTSIDE RECORDS SUMMARY | 2024-12-05 13:36 | XMS_ITS | Encounter Summary ---
Author Organization [facility] Address [address] [place] [address] Care Team Providers Care Dean Of Instruction Name Role Phone John Mcdaniels DO Primary Care Provider [phone] Encounter Details Date Type Department Care Team (Late st Contact Info) Description 03/24/2023 Clinisync Result Encounter [facility] External Department Unsolicited Jordan Barron, [address] [place], [place] [id number] Social History Tobacco Use Types Packs/Day Years [...] Comments CT UPPER EXTREMITY W/O CONTRAST RIGHT 03/24/2023 4:08 PM EDT documented in this encounter Results * CT UPPER EXTREMITY W/O CONTRAST RIGHT (03/24/2023 4:08 PM EDT) Anatomical Region Laterality Modality Other 03/24/2023 4:08 PM EDT Narrative 03/25/2023 10:43 AM EDT Exam Date/Time: 03/24/2023 16:10 EDT Reason for [...] low as reasonably achievable. Ordering Provider: Jordan Barron FINAL REPORT Dictated: 03/25/2023 10:40 am Gigi Suazo DO Signed (Electronic Signature): 03/25/2023 10:40 am Signed by: Gigi Suazo DO Transcribed by: DANISHA Technologist: CONSTANTINO Procedure Note Radiology, Radiologist, - 03/28/2023 Exam Date/Time: 03/24/2023 16:10 EDT Reason for Exam: OA RIGHT SHOULDER Report IMPRESSION: RIGHT SHOULDER OSTEOARTHRITIS. EXAMINATION: CT Upper Extremity w/o Contrast Right HISTORY: Right shoulder osteoarthritis TECHNIQUE: Multiple contiguous axial images were obtained of the rightupper extremity utilizing Arthrex protocol. Multiplanar reformats wereobtained. COMPARISON: None available FINDINGS: Degenerative changes including joint space narrowing and marginalosteophyte formation of the glenohumeral joint. Chronic deformity of the posteriorsuperior glenoid. Mild degenerative changes of the acromioclavicular joint No acutefracture. Thinning/tearing of supraspinatus tendon. All CT scans at this facility use dose modulation, iterativereconstruction, and/or weight based dosing when appropriate to reduce radiation dose to as low asreasonably achievable. Ordering Provider: Jordan Barron FINAL REPORT Dictated: 03/25/2023 10:40 am Gigi Suazo DO Signed (Electronic Signature): 03/25/2023 10:40 am Signed by: Gigi Suazo DO Transcribed by: DANISHA Technologist: CONSTANTINO us Jordan Barron DO [facility] Final Result documented in this encounter Visit Diagnoses Not on filedocumented in this encounter Care Teams Dean Of Instruction Relationship Specialty Start Date End Date John Mcdaniels DO PCP - General Internal Medicine 12/23/22 documented as of this encounter
--- OUTSIDE RECORDS SUMMARY | 2024-12-05 13:36 | XMS_ITS | Encounter Summary ---
Author Organization [facility] Address [address] [facility] [place] [address] Care Team Providers Care Sales Assoc Name Role Phone John Mcdaniels Diandra CAMPOS Primary Care Provider [phone] Encounter Details Date Type Department Care Team (Late st Contact Info) Description 06/06/2023 Orders Only [facility] [address] [place] [address] Jordan Barron DO [address] [address] Status post shoulder surgery (Primary Dx) Social History Tobacco Use Types Packs/Day Years [...] on file Sexual Orientation Not on file COVID-19 Exposure Response Date Recorded In the last 10 days, have yo u been in contact with someone who was confirmed or suspected to have Coronavirus/COVID-19? No / Unsure 05/23/2023 3:39 PM EST documented as of this encounter Plan of Treatment Not on file documented as of this encounter Visit Diagnoses Diagnosis Status post shoulder surgery- Primary Other postprocedural status documented in this encounter Care Teams Sales Assoc Relationship Specialty Start Date End Date John Mcdaniels DO PCP - General Internal Medicine 12/23/22 documented as of this encounter
--- OUTSIDE RECORDS SUMMARY | 2024-12-05 13:36 | XMS_ITS | Encounter Summary ---
Author Organization [facility] Address [address] [place] [address] Care Team Providers Care Data Keyer Name Role Phone John Mcdaniels DO Primary Care Provider [phone] Reason for Visit * Reason Comments Med Refill Encounter Details Date Type Department Care Team (Late st Contact Info) Description 01/20/2023 Refill [facility] Cardiology [address] [place] [address] Kate Ramirez, DIRECTOR OF PHOTOGRAPHY [address] [place] [address] Benign hypertensive heart disease with heart failure (CMS/HCC) Social History Tobacco Use Types Packs/Day Years Used Date Smoking Tobacco: Never Assessed Sex and Gender Information Value Date Recorded Sex Assigned at Not on file Gender Identity Not on file Sexual Orientation Not on file documented as of this encounter Plan of Treatment Upcoming Encounters Date Type Department Care Team (Late st Contact Info) Description 12/10/2024 3:45 PM EDT Office Visit [facility] [address] [place] [address] Yakov Trotter MD [address] [facility] [place] [address] documented as of this encounter Visit Diagnoses Diagnosis Benign hypertensive heart disease with heart failure (CMS/HCC) documented in this encounter Care Teams Data Keyer Relationship Specialty Start Date End Date John Mcdaniels DO [address] [facility] [place] [address] [place] [address] PCP - General 11/08/23 documented as of this encounter
--- OUTSIDE RECORDS SUMMARY | 2024-12-05 13:36 | XMS_ITS | Clinical Summary ---
Author Organization [facility] Address [address] [place] [address] Care Team Providers Care Ingredient Mixer Name Role Phone John Mcdaniels DO Primary Care Provider [phone] Allergies No known active allergies Medications buPROPion (WELLBUTRIN XL) 300 MG extended release tablet TAKE 1 TABLET BY MOUTH DAILY 5 7 Active citalopram (CELEXA) 20 MG tablet in AM 5 7 Active diltiazem (TIAZAC) 360 MG extended release capsule TAKE 1 CAPSULE EVERY DAY 3 7 Active leflunomide (ARAVA) 10 MG tablet 10 mg daily 7 Active metoprolol succinate (TOPROL XL) 25 MG extended release tablet TAKE 1 TABLET BY MOUTH EVERY DAY AT NIGHT 3 7 Active tiZANidine (ZANAFLEX) 4 MG tablet TAKE 1 TABLET BY MOUTH EVERY 8 HOURS NEEDED FOR PAIN 3 7 Active InFLIXimab (REMICADE IV) Infuse intravenously Every 4 weeks Active acetaminophen (TYLENOL) 325 MG tablet Take 2 tablets by mouth every 4 hours as needed for Pain 120 tablet 8 Active pregabalin (LYRICA) 50 MG capsuleIndicati ons:Cervical radiculopathy,F oraminal stenosis of cervical region,Cervical spondylosis without myelopathy,Cerv ical disc herniation Take 1 capsule by mouth 3 times daily for 30 days.. 90 capsule 8 Active digoxin (LANOXIN) 125 MCG tablet Take 125 mcg by mouth daily Active rifampin (RIFADIN) 300 MG capsule Take by mouth 2 times daily Active ethambutol (MYAMBUTOL) 100 MG tablet Take 100 mg by mouth daily Active azithromycin (ZITHROMAX) 500 MG tablet Take 500 mg by mouth daily Active HYDROcodone-nic taminophen (NORCO) 5-325 MG per tablet Take 1 tablet by mouth every 6 hours as needed for Pain. Active pregabalin (LYRICA) 75 MG capsuleIndicati ons:Cervical radiculopathy,C ervical spondylosis without myelopathy Take 1 capsule by mouth 3 times daily for 30 days. 270 capsule 1 Active Active Problems Problem Noted Date Diagnosed Date Cervical stenosis of spinal canal 10/21/2017 Foraminal stenosis of cervical region 10/13/2017 Family History Medical History Relation Name Comments Cancer Father Diabetes Father High Blood Pressure Father Arthritis Mother osteo Cancer Mother Diabetes Mother Thyroid Disease Mother Other Sister 1 Afib Cancer Sister 2 Other Sister 2 Afib Other Son 1 Afib Other Son 2 afib Relation Name Status Comments Brother Alive Father Alive Mother Alive Sister 1 Alive Sister 2 Alive Son 1 Son 2 Social History Tobacco Use Types Packs/Day Years [...] Sign Reading Time Taken Comments Blood Pressure 120/72 10/21/2017 7:35 AM EDT Pulse 83 10/21/2017 7:35 AM EDT Temperature 37.1 C (98.7 F) 03/07/2020 11:01 AM EDT Respiratory Rate 18 10/21/2017 7:35 AM EDT Oxygen Saturation 95% 10/21/2017 7:35 AM EDT Inhaled Oxygen Concentration - - Weight 81.6 kg (180 lb) 03/07/2020 11:01 AM EDT Height 166.4 cm (5' 5.5 ) 03/07/2020 11:01 AM ED T Body Mass Index 29.5 03/07/2020 11:01 AM EDT Plan of Treatment Not on file Medical Devices Implanted Type Area Collar Turner Operator Device Identifier Shelf Expiration Date Model / Serial / Lot Optio - C Allograft Implanted:Qty : 1 on 10/20/2017 by Prosper Gomes MD at [facility] Bone/[place] t/Tissue/ Human/Syn th Left: Neck 02/08/2020 [id number] / / [id number] Optio - C Plate Implanted:Qty : 1 on 10/20/2017 by Prosper Gomes MD at [facility] Screw/Bry te/Nail/R od Left: Neck 09/08/2019 [id number] / / [id number] Impl Spacer Spine Fortitude Duo [id number] Implanted:Qty : 1 on 10/20/2017 by Prosper Gomes MD at [facility] Spine Right: Neck JUANIS [employer]-PMM 10/19/2020 [id number] / / [id number] Screw Sd [place] Plus Ti 12mm Implanted:Qty : 2 on 10/20/2017 by Prosper Gomes MD at [facility] Spine Right: Neck JN[place]: [facility] 12 MM SCREWS [id number] / / 16 Mm Plate Implanted:Qty : 1 on 10/20/2017 by Prosper Gomes MD at [facility] Right: Neck [id number] / / 10 Mm Screw Implanted:Qty : 2 on 10/20/2017 by Prosper Gomes MD at [facility] Right: Neck [id number] / / Spacer Clip Implanted:Qty : 1 on 10/20/2017 by Prosper Gomes MD at [facility] Right: Neck [id number] / / 12 Mm Variable Screw Implanted:Qty : 2 on 10/20/2017 by Prosper Gomes MD at [facility] Left: Neck [id number] / / 14 Mm Variable Screw Implanted:Qty : 1 on 10/20/2017 by Prosper Gomes MD at [facility] Left: Neck [id number] / / Insurance O [employer] [facility] Advance Directives * Full Code (Latest Code Status on File) Date Activated Date Inactivated Comments 10/20/2017 1:09 PM 10/21/2017 11:39 PM Care Teams Ingredient Mixer Relationship Specialty Start Date End Date John Mcdaniels DO PCP - General Internal Medicine 10/11/17
--- NOTE | 2024-12-05 13:52 | CA_ITS ---
Patient Name: ALEXANDER ZAIDI MR#: [id number] : 1960 Exam Date: 12/05/2024 Ordering Doctor: DR CAROLINA TROTTER M.D. ECHOCARDIOGRAM REPORT PROCEDURE: CA ECHO DOPPLER COMPLETE INDICATIONS: Chronic systolic congestive heart failure COMPARISON: None. DESCRIPTION: COMPLETE ECHOCARDIOGRAM Real-time transthoracic echocardiography with 2D, M-mode, spectral and color flow Doppler performed. QUALITY: Technical quality was good. LEFT VENTRICLE: Normal chamber size. Borderline left ventricular hypertrophy. Global left ventricular systolic function is normal. Systolic function is normal. LV EF: Estimated left ventricular ejection fraction is 55%. DIASTOLIC: Normal diastolic function. ATRIAL SEPTUM: LEFT ATRIUM: Normal chamber size. RIGHT ATRIUM: Normal chamber size. RIGHT VENTRICLE: Normal chamber size. Normal right ventricular systolic function. TRICUSPID VALVE: Normal mobility and thickness. No stenosis with mild regurgitation. No evidence of pulmonary hypertension. RVSP 28 mmHg MITRAL VALVE: Normal mobility and thickness. No evidence of mitral valve stenosis. There is no mitral annular calcification. Trivial mitral regurgitation. AORTIC VALVE: Normal trileaflet appearance. No visible sclerosis. Normal leaflet mobility. No evidence of aortic valve stenosis. Trivial aortic regurgitation. AORTIC ROOT: Normal diameter and appearance, measuring 3.5 cm. Normal size ascending aorta measuring 3.5 cm. PULMONIC VALVE: Normal thickness and mobility. No stenosis. No regurgitation. PERICARDIUM: No evidence of pericardial effusion. IVC: Collapses with inspirations. PLEURA: CONCLUSION: 1. Normal left ventricular size and systolic function. Estimated LVEF is 55%. 2. Normal right ventricular size and systolic function. 3. Normal diastolic function. 4. Mild tricuspid regurgitation. 5. Normal right-sided pressures. 6. No pericardial effusion. Adult Echocardiography Procedure Report Left Ventricle LVEDD (3.7 - 5.6 cm): 3.95 cm LVESD (2.2 - 4.0 cm): 2.63 cm LVIVS thickness (0.6 - 1.2 cm): 1.13 cm LVPW thickness (0.5 - 1.0 cm): 1.11 cm e': 0.07 m/s E - e': 8.98 LVOT Max Gradient: 2.77 mm[Hg] LVOT Area (cm2): 0.83 m/s Peak Velocity (LVOT): 0.83 m/s Mean Velocity (LVOT): 0.56 m/s LVOT Diameter 2.36 cm Left Ventricular Ejection Fraction: 55 % Left Atrium LA Volume Index (2D A2C): 31.48 ml/m2 Left Atrium Systolic Dimension: 2.92 cm Mitral Valve MV E to A Ratio: 0.86 Mitral Valve A-Wave Peak Velocity: 0.77 m/s Mitral Valve E-Wave Peak Velocity: 0.66 m/s Right Ventricle RV Internal Diastolic Dimension: 2.33 cm Aorta AO Root Diam: 3.50 cm Ascending Ao Diam: 3.56 cm Aortic Valve AoV Area (Peak Carlin): 2.99 cm2, 2.99 cm2 Peak Velocity(Antegrade Flow): 1.22 m/s Peak Gradient(Antegrade Flow): 5.92 mm[Hg] Tricuspid Valve Peak Velocity (Regurgitant Flow): 1.90 m/s, 2.48 m/s Pulmonic Valve Peak Velocity: 0.82 m/s Peak Gradient: 2.72 mm[Hg] Right Atrium Right Atrium Systolic Pressure: 15.86 ml, 15.86 ml Dictated by: Carolina Trotter M.D. on 12/05/2024 at 17:56 Approved by: Carolina Trotter M.D. on 12/05/2024 at 17:59
== END 2024-12-05 13:32 | disposition home or self-care (01) ==
LOC: CARD 13:31
PROVIDERS: PCP Internal Medicine; Visit Provider Internal Medicine Interventional Cardiology
DX: I50.22 Chronic systolic (congestive) heart failure (principal); M05.79 Rheumatoid arthritis with rheumatoid factor of multiple sites without organ or systems involvement; M15.0 Primary generalized (osteo)arthritis; Z79.899 Other long term (current) drug therapy; I07.1 Rheumatic tricuspid insufficiency
CPT/HCPCS: 36415; 80053; 85025; 85652; 93306

== ENCOUNTER 2024-12-05 13:32 | Outpatient (OUT) | payer MEDICARE, SELFPAY ==
--- OUTSIDE RECORDS SUMMARY | 2024-12-05 13:36 | XMS_ITS | Encounter Summary ---
Author Organization [facility] Address [address] [place] [address] Care Team Providers Care Development Spec Name Role Phone John Mcdaniels DO Primary Care Provider [phone] Encounter Details Date Type Department Care Team (Late st Contact Info) Description 09/06/2023 Clinisync Result Encounter [facility] External Department Unsolicited Jordan Barron, [address] [place], [place] [id number] Social History Tobacco Use Types Packs/Day Years [...] Procedure Name Priority Date/Time Associated Diagnosis Comments CT UPPER EXTREMITY W/O CONTRAST RIGHT 09/06/2023 5:01 PM EST [facility] Routine 09/06/2023 4:18 PM EST documented in this encounter Results * CT UPPER EXTREMITY W/O CONTRAST RIGHT (09/06/2023 5:01 PM EST) Anatomical Region Laterality Modality Other 09/06/2023 5:01 PM EST Narrative 09/08/2023 10:54 AM EST Exam Date/Time: 09/06/2023 17:13 EST Reason for [...] findings of concern identified. Ordering Provider: Jordan Barron FINAL REPORT Dictated: 09/08/2023 10:51 am Coleman Fields MD Signed (Electronic Signature): 09/08/2023 10:51 am Signed by: Coleman Fields MD Transcribed by: DANISHA Technologist: ORG Procedure Note Radiology, Radiologist, - 09/08/2023 Exam Date/Time: 09/06/2023 17:13 EST Reason for Exam: Z98.890, M25.511 Report IMPRESSION: MINIMALLY DISPLACED RIGHT ACROMION BASE FRACTURE. EXAM: CT Upper Extremity w/o Contrast Right DATE: 09/06/2023 5:01 PM CLINICAL HISTORY: Z98.890, M25.511. COMPARISON: Postoperative right shoulder radiographs 04/06/[address] 03/24/2023. TECHNIQUE: Routine. All CT scans at this facility use dose modulation, iterativereconstruction, and/or weight based dosing when appropriate to reduce radiation dose to as low asreasonably achievable. FINDINGS: A minimally displaced recent-appearing fracture is present of the base ofthe acromion process. A reverse total right shoulder arthroplasty remains in expected position.Mild atrophy of the supraspinatus muscle belly is probably related to chronicrotator cuff disease. There is no other fracture, dislocation, acromioclavicular jointseparation, evidence of hardware loosening, organized fluid collection, worrisome bonedestruction, pathologic calcifications, or other findings of concern identified. Ordering Provider: Jordan Barron FINAL REPORT Dictated: 09/08/2023 10:51 am Coleman Fields MD Signed (Electronic Signature): 09/08/2023 10:51 am Signed by: Coleman Fields MD Transcribed by: DANISHA Technologist: ORG us Jordan Barron DO [facility] Final Result * [facility] (09/06/2023 4:18 PM EST) [facility] COMMENT [facility] Comment: Test Ordered: [id number] Interleukin-6, Serum Interleukin-6, Serum <2.5 pg/mL CB [...] endotracheal intubation or mechanical ventilation. Performed at: [facility] [id number] PhD Saturnino Morse [facility] TEST CODE [id number] [facility] TEST NAME interleukin 6 [facility] 09/06/2023 4:18 PM EST 09/06/2023 4:35 PM EST Narrative [facility] - 09/08/2023 1:10 PM EST Original Ordering Provider: DO Jordan Barron Jordan Barron DO [facility] Final Result Performing Organization Address City/State/[facility] Co de Phone Number [facility] documented in this encounter Visit Diagnoses Not on filedocumented in this encounter Care Teams Development Spec Relationship Specialty Start Date End Date John Mcdaniels DO PCP - General Internal Medicine 12/23/22 documented as of this encounter
[2024-12-05 14:12] LABS: Basophils Absolute Auto 0.1 10^3/uL (0.0-0.1); Basophils Percent Auto 0.9 % (0.2-2.0); Eosinophils Absolute Auto 0.4 10^3/uL (0.0-0.7); Hematocrit 37.7 % (36.0-48.0); Hemoglobin 12.2 g/dL (12.0-16.0); Immature Granulocytes Abs Auto 0.02 10^3/uL (0.00-0.03); Immature Granulocytes Pct Auto 0.4 % (0.0-0.5); Lymphocytes Absolute Auto 1.6 10^3/uL (1.2-3.8); Lymphocytes Percent Auto 29.4 % (20.5-60.0); Mean Corpuscular HGB Conc 32.4 g/dL (29.9-35.2); Mean Corpuscular Hemoglobin 30.6 pg (26.7-34.0); Mean Corpuscular Volume 94.5 fL (81.0-99.0); Mean Platelet Volume 9.5 fL (9.5-13.5); Monocytes Absolute Auto 0.5 10^3/uL (0.3-0.8); Neutrophils Absolute Auto 2.8 10^3/uL (1.4-6.5); Neutrophils Percent Auto 51.3 % (43.0-75.0); Platelet Count 203 10^3/uL (150-450); Red Blood Count 3.99 10^6/uL (4.20-5.40); Red Cell Distribution Width 12.6 % (11.0-15.0); White Blood Count 5.4 10^3/uL (4.0-11.0)
[2024-12-05 14:13] LABS: Erythrocyte Sedimentation Rate 22 mm/hr (<=30)
[2024-12-05 14:46] LABS: Alanine Aminotransferase 21 U/L (14-59); Albumin Globulin Ratio 1.1; Albumin Level 3.6 g/dL (3.4-5.0); Alkaline Phosphatase 67 U/L (46-116); Anion Gap 13.2; Aspartate Amino Transferase 18 U/L (15-37); BUN Creatinine Ratio 21.2; Bilirubin Total 0.4 mg/dL (0.2-1.0); Calcium 9.2 mg/dL (8.5-10.1); Carbon Dioxide 30.2 mmol/L (21.0-32.0); Chloride 105 mmol/L (98-107); Estimated GFR (African America >60 (>=60 mL/min/1.73m^2); Estimated GFR (Non-African Ame >60 (>=60 mL/min/1.73m^2); Globulin 3.2 g/dL; Glucose 85 mg/dL (74-106); Potassium 3.4 mmol/L (3.5-5.1); Sodium 145 mmol/L (136-145); Total Protein 6.8 g/dL (6.4-8.2)
== END 2024-12-05 13:33 | disposition home or self-care (01) ==
LOC: LAB 13:34
PROVIDERS: PCP Internal Medicine; Visit Provider Internal Medicine Rheumatology
DX: M05.79 Rheumatoid arthritis with rheumatoid factor of multiple sites without organ or systems involvement (principal); M15.0 Primary generalized (osteo)arthritis; Z79.899 Other long term (current) drug therapy
CPT/HCPCS: 36415; 80053; 85025; 85652

== ENCOUNTER 2024-12-13 13:56 | Outpatient (OUT) | payer MEDICARE, SELFPAY ==
--- OUTSIDE RECORDS SUMMARY | 2024-12-10 15:45 | XMS_ITS | Encounter Summary ---
Author Organization [facility] Address [address] [place] [address] Care Team Providers Care Peoplesoft Fscm Developer Name Role Phone John Mcdaniels DO Primary Care Provider [phone] Encounter Details Date Type Department Care Team (Late st Contact Info) Description 12/10/2024 3:45 PM EDT [facility] Visit [facility] [address] [place] [address] Yakov Trotter MD [address] [facility] [place] [address] Nonischemic cardiomyopathy (CMS/HCC) (Primary Dx); Heart failure with improved ejection fraction (HFimpEF) (CMS/HCC); Mixed hyperlipidemia Social History Tobacco Use Types Packs/Day Years Used Date Smoking Tobacco: Former Cigarettes Passive Smoke Exposure: Past Smokeless Tobacco: Never Tobacco Cessation:Counseling Given: Not Answered Alcohol Use Standard Drinks/Week Comments Yes 0 (1 standard drink = 0.6 oz pur e alcohol) occasional [place] [employer] Answer Date Rec [...] on file documented as of this encounter Last Filed Vital Signs Vital Sign Reading Time Taken Comments Blood Pressure 125/71 12/10/2024 4:23 PM EDT Pulse 75 12/10/2024 4:23 PM EDT Temperature - - Respiratory Rate - - Oxygen Saturation 97% 12/10/2024 4:23 PM EDT Inhaled Oxygen Concentration - - Weight 58.5 kg (129 lb) 12/10/2024 4:23 PM EDT Height 165.1 cm (5' 5 ) 12/10/2024 4:23 PM EDT Body Mass Index 21.47 12/10/2024 4:23 PM EDT documented in this encounter Progress Notes * Yakov Trotter MD - 12/10/2024 3:45 PM EDT Images from the original note were not included. [place] [facility] Subjective Radha Obrien is a 64 y.o. year old female patient being seen for 1 year follow up with ECHO. Patient states she is feel not bad at all. Patient states she has no cardiac complaints at this time. Patient Active Problem List Diagnosis Chronic systolic congestive heart failure (CMS/HCC) Nonischemic cardiomyopathy (CMS/HCC) Mixed hyperlipidemia Acute pericarditis Cervical stenosis of spinal canal Closed fracture of upper end of fibula Degenerative joint disease of hand Dyspnea Essential hypertension High blood pressure Foraminal stenosis of cervical region Loculated empyema (CMS/HCC) Rheumatoid arteritis (CMS/HCC) Rheumatoid arthritis (CMS/HCC) Status post partial removal of lung Bradycardia Family History Problem Relation Name Age of Onset Coronary artery disease Mother Social History Tobacco Use Smoking status: Former Types: Cigarettes Passive exposure: Past Smokeless tobacco: Never Substance Use Topics Alcohol use: Yes Comment: occasional Drug use: Never DOMINIC Garcia presents for follow up. She is a 64-year-old woman. She has hypertension, rheumatoid arthritis and in 2012 had acute pericarditis that resolved on colchicine therapy. She has history of elevated heart rate with readings of about 90-100 bpm. She did not tolerate metoprolol in the past and she did well on diltiazem. Cardiac catheterization in 2011 showed normal coronary arteries and normal LV systolic function by ventriculography. She has history of nonischemic cardiomyopathy. Her echocardiogram in 2011 showed EF of 40%. Her follow up echocardiogram 11/11/2015 was normal. She was on treatment with lisinopril and metoprolol for chronic systolic heart failure with improved ejection fraction. Currently on metoprolol only. In the past she was admitted to [facility] with pneumonia and empyema, underwent chest tube, decortication and thoracotomy. Today she reports that she has been doing well. she denies chest pain, shortness of breath, palpitations, dizziness, syncope and leg edema. she has good exercise tolerance. There is no claudication. Review of Systems Cardiovascular: Negative for chest pain, dyspnea on exertion, irregular heartbeat, leg swelling, orthopnea, palpitations and syncope. Respiratory: Negative for cough and shortness of breath. Musculoskeletal: Negative for arthritis, falls and neck pain. Gastrointestinal: Negative for diarrhea and dysphagia. Neurological: Negative for light-headedness and loss of balance. Objective Visit Vitals BP 125/71 (BP Location: Left arm, Patient Position: Sitting) Pulse 75 Ht 1.651 m (5' 5 ) Wt 58.5 kg (129 lb) SpO2 97% BMI 21.47 kg/m?? Smoking Status Former BSA 1.64 m?? Physical Exam Constitutional: Appearance: She is well-developed. [...] General: No swelling. Cervical back: Neck supple. Skin: General: Skin is warm and dry. Neurological: General: No focal deficit present. Mental Status: She is alert and oriented to person, place, and time. Psychiatric: Mood and Affect: Mood normal. Behavior: Behavior is cooperative. Judgment: Judgment normal. Allergies Allergies Allergen Reactions Cephalexin GI intolerance Medications Current Outpatient Medications: acetaminophen (Tylenol) 325 [...] mouth if needed., Disp: , Rfl: HYDROcodone-acetaminophen ([place]) 5-325 mg tablet, TAKE 1 TABLET BY MOUTH 3 TIMES A DAY NEEDED FOR PAIN*MUS LAST 30 DAYS, Disp: , Rfl: leflunomide (Arava) 10 mg tablet, 10 mg., Disp: , Rfl: metoprolol succinate XL (Toprol-XL) 100 mg 24 hr tablet, Take 1 tablet (100 mg) by mouth in the morning. Do not crush or chew., Disp: 90 tablet, Rfl: 3 omeprazole (PriLOSEC) [address] capsule, 40 [...] the morning., Disp: 90 tablet, Rfl: 3 methylPREDNISolone (Medrol Dospak) 4 mg tablets, , Disp: , Rfl: Recent Labs No visits with results within 6 Month(s) from this visit. Latest known visit with results is: [facility] Encounter on 03/12/2020 Component Date Value Glucose POC 03/12/2020 103 (H) Blood testing 08/30/2023: Hemoglobin 12.5, platelets 181, potassium 3.8, BUN 20, creatinine 0.96, EGFR 59, LFTs normal, triglycerides 101, cholesterol 246, LDL 152, HDL 74. Blood testing 08/31/2024: Hemoglobin 10.9, platelets 225, potassium 4.3, BUN 20, creatinine 1.29, EGFR 42, LFTs within normal, triglycerides 66, cholesterol 196, LDL 115, HDL 68. TSH 1.339. Blood testing 12/05/2024: Hemoglobin 12.2, platelets 203, potassium 3.4, BUN 18, creatinine 0.85, EGFR more than 60, LFTs normal. Imaging and other tests ECG 05/04/2018: Normal sinus rhythm (83 bpm) Normal ECG Echocardiogram 07/27/2018: Global left ventricular systolic function is mildly to moderately reduced (Visually estimated EF 35-40%). The left ventricle is normal size. Left ventricular wall thickness is normal. No regional wall motion abnormality. Normal right ventricular systolic function. Unable to assess right sided pressures due to lack of measurable tricuspid regurgitation. No significant valvular abnormalities Compared to the prior echocardiogram of 11/11/15 there has been a significant decrease in left ventricular ejection fraction from 55-60% to 35-40%. Echocardiogram 12/12/2018: Global left ventricular systolic function is normal (Visually estimated EF 60%). The left ventricle is normal size. Left ventricular wall thickness is normal. No regional wall motion abnormality. Grade 1, mild diastolic dysfunction (abnormal relaxation). Normal right ventricular systolic function. The left atrium is normal in size. The right atrium is normal in size. Doppler studies suggest normal right sided pressures. No significant valvular abnormalities Compared to the prior echocardiogram from 07/27/18 left ventricular ejection fraction has normalizedincreasing from 35-40% to 60%. Echocardiogram 03/19/2024: CONCLUSION: Mild concentric left ventricular hypertrophy. Global left ventricular systolic functionis normal. Calculated left ventricular ejection fraction is 61%. No wall motion abnormalities. Normal diastolic function. Mild mitral regurgitation Mild aortic regurgitation Echocardiogram 12/05/2024: CONCLUSION: 1. Normal left ventricular size and systolic function. Estimated LVEF is 55%. 2. Normalright ventricular size and systolic function. 3. Normal diastolic function. 4. Mild tricuspid regurgitation. 5. Normal right-sided pressures. 6. No pericardial effusion. Assessment/Plan Diagnoses and all orders for this visit: Nonischemic cardiomyopathy (CMS/HCC) Heart failure with improved ejection fraction (HFimpEF) (CMS/HCC) - metoprolol succinate XL (Toprol-XL) 100 mg 24 hr tablet; Take 1 tablet (100 mg) by mouth in the morning. Do not crush or chew. Mixed hyperlipidemia Radha is doing clinically well from a cardiac perspective. I will continue metoprolol succinate 100 mg once daily. I refilled it. Continue aspirin 81 mg daily. Her recent echocardiogram November 2024 showed persistent normalization of LVEF at 55%. She has no significant valvular abnormalities and normal right-sided pressures. I reviewed her recent blood testing. It shows within normal renal function. She has elevated cholesterol levels. I advised a strict diet. No indication for statin therapy. I will see her in 1 year for follow up. Follow up in about 1 year (around 12/10/2025). Yakov Trotter MD documented in this encounter Plan of Treatment Not on file documented as of this encounter Visit Diagnoses Diagnosis Nonischemic cardiomyopathy (CMS/HCC)- Primary Other primary cardiomyopathies Heart failure with improved ejection fraction (HFimpEF) (CMS/HCC) Mixed hyperlipidemia documented in this encounter Care Teams Peoplesoft Fscm Developer Relationship Specialty [place] [address] [place] [id number] PCP - General 11/08/23 documented as of this encounter
--- OUTSIDE RECORDS SUMMARY | 2024-12-13 13:58 | XMS_ITS | Encounter Summary ---
Author Organization [facility] Address [address] [place] [place] [address] Care Team Providers Care Tenter Feeder Name Role Phone John Mcdaniels DO Primary Care Provider [phone] Encounter Details Date Type Department Care Team (Late st Contact Info) Description 03/24/2023 Clinisync Result Encounter [facility] External Department Unsolicited Jordan Barron, [address] [place], [place] [id number] Social History Tobacco Use Types Packs/Day Years [...] on filedocumented in this encounter Care Teams Tenter Feeder Relationship Specialty Start Date End Date John Mcdaniels DO PCP - General Internal Medicine 12/23/22 documented as of this encounter
--- OUTSIDE RECORDS SUMMARY | 2024-12-13 13:58 | XMS_ITS | Encounter Summary ---
Author Organization [facility] Address [address] [place] [address] Care Team Providers Care Equipment Operator Warehouse Name Role Phone John Mcdaniels DO Primary Care Provider [phone] Encounter Details Date Type Department Care Team (Late st Contact Info) Description 09/06/2023 Clinisync Result Encounter [facility] External Department Unsolicited Jordan Barron, [address] [place], [place] [id number] Social History Tobacco Use Types Packs/Day Years [...] W/O CONTRAST RIGHT 09/06/2023 5:01 PM EST [facility] Routine 09/06/2023 4:18 PM EST [...] Barron DO [facility] Final Result * [facility] (09/06/2023 4:18 PM EST) [facility] COMMENT [facility] [place]: Test Ordered: [id number] Interleukin-6, Serum Interleukin-6, Serum <2.5 pg/mL CB [...] endotracheal intubation or mechanical ventilation. Performed at: [address] [id number] PhD Saturnino Morse [facility] [place] [id number] [facility] TEST NAME interleukin 6 [facility] 09/06/2023 4:18 PM EST 09/06/2023 4:35 PM EST Narrative [facility] - 09/08/2023 1:10 PM EST Original Ordering Provider: DO Jordan Barron Jordan Barron DO CLINIS[facility] Final Result Performing Organization Address City/State/[place] Co de Phone Number [facility] documented in this encounter Visit Diagnoses Not on filedocumented in this encounter Care Teams Equipment Operator Warehouse Relationship Specialty Start Date End Date John Mcdaniels DO PCP - General Internal Medicine 12/23/22 documented as of this encounter
--- OUTSIDE RECORDS SUMMARY | 2024-12-13 13:58 | XMS_ITS | Encounter Summary ---
Author Organization [facility] Address [address] [place] [address] Care Team Providers Care Manager Hematology Name Role Phone John Mcdaniels DO Primary Care Provider [phone] Reason for Visit * Reason Onset Date Comments Medication Refill Medication Refill 04/04/2019 Medication Refill 04/10/2019 Encounter Details Date Type Department Care Team (Late st Contact Info) Description 04/04/2019 Refill [employer] [address], [address] [place] [address] Prosper Gomes MD Medication Refill; Medication Refill; [...] myelopathy documented in this encounter Care Teams Manager Hematology Relationship Specialty Start Date End Date John Mcdaniels DO PCP - General Internal Medicine 10/11/17 documented as of this encounter
--- OUTSIDE RECORDS SUMMARY | 2024-12-13 13:58 | XMS_ITS | Encounter Summary ---
Author Organization [facility] Address [address] [facility] [place] [address] Care Team Providers Care Director Of Accounting Name Role Phone John Mcdaniels Diandra CAMPOS Primary Care Provider Encounter Details Date Type Department Care Team (Late st Contact Info) Description 06/06/2023 Orders Only [facility] [address] [place] [address] Jordan Barron DO [address] [place] [address] Status post shoulder surgery (Primary Dx) Social [...] status documented in this encounter Care Teams Director Of Accounting Relationship Specialty Start Date End Date John Mcdaniels DO PCP - General Internal Medicine 12/23/22 documented as of this encounter
--- OUTSIDE RECORDS SUMMARY | 2024-12-13 13:58 | XMS_ITS | Encounter Summary ---
Author Organization [facility] Address [address] [place] [address] Care Team Providers Care Digital Account Executive Name Role Phone John Mcdaniels DO Primary Care Provider [phone] Reason for Visit * Reason Comments Medication Refill Encounter Details Date Type Department Care Team (Late st Contact Info) Description 10/13/2020 Refill [facility] [address], [address] [place], [place] [id number] [place] [address] [place] [address] [address] [place], [place] [id number] Medication Refill Social History Tobacco Use Types [...] myelopathy documented in this encounter Care Teams Digital Account Executive Relationship Specialty Start Date End Date John Mcdaniels DO PCP - General Internal Medicine 10/11/17 documented as of this encounter
--- OUTSIDE RECORDS SUMMARY | 2024-12-13 13:58 | XMS_ITS | Encounter Summary ---
Author Organization [facility] Address [address] [facility] [place] [address] Care Team Providers Care Offshore Wind Turbine Technician Name Role Phone John Mcdaniels DO Primary Care Provider [phone] Encounter Details Date Type Department Care Team (Late st Contact Info) Description 09/20/2023 Orders Only [facility] [address] [place] [address] Kate Scruggs ARRT [address] [place] [address] Social History Tobacco Use Types Packs/Day Years [...] on filedocumented in this encounter Care Teams Offshore Wind Turbine Technician Relationship Specialty Start Date End Date John Mcdaniels DO PCP - General Internal Medicine 12/23/22 documented as of this encounter
--- OUTSIDE RECORDS SUMMARY | 2024-12-13 13:58 | XMS_ITS | Encounter Summary ---
[facility] Address [address] [place] [address] Care Team Providers Care Ornament Maker Hand Name Role Phone John Mcdaniels DO Primary Care Provider [phone] Reason for Visit * Reason Onset Date Comments Other 11/03/2018 Records for 05/13 , 09/08/18 faxed to [employer]. Encounter Details Date Type Department Care Team (Late st Contact Info) Description 11/03/2018 Telephone [employer]. [address], [address] [place], [place] [id number] Prosper Gomes MD Other (Records for 06/09/18, 09/08/18 faxed to [employer].) Social History Tobacco Use Types Packs/Day Years [...] on filedocumented in this encounter Care Teams Ornament Maker Hand Relationship Specialty Start Date End Date John Mcdaniels DO PCP - General Internal Medicine 10/11/17 documented as of this encounter
--- OUTSIDE RECORDS SUMMARY | 2024-12-13 13:58 | XMS_ITS | Encounter Summary ---
Author Organization [facility] Address [address] [place] [address] Care Team Providers Care Electroless Plater Name Role Phone John Mcdaniels DO Primary Care Provider [phone] Reason for Visit * Reason Comments Medication Refill Encounter Details Date Type Department Care Team (Late st Contact Info) Description 12/24/2019 Refill [facility] [employer] [address], [address] [place] [address] Prosper Gomes MD Medication Refill Social History [...] myelopathy documented in this encounter Care Teams Electroless Plater Relationship Specialty Start Date End Date John Mcdaniels DO PCP - General Internal Medicine 10/11/17 documented as of this encounter
--- OUTSIDE RECORDS SUMMARY | 2024-12-13 13:58 | XMS_ITS | Clinical Summary ---
Author Organization [employer] tem Address [id number] [address] [place] [address] Care Team Providers Care Case Therapist Name Role Phone John Mcdaniels DO Primary Care Provider [phone] Allergies No known active allergies Medications dilTIAZem [...] Devices Not on file Insurance [employer] [facility] Care Teams Case Therapist Relationship Specialty Start Date End Date John Mcdaniels DO [address] [place] [address] PCP - General Internal Medicine 05/16/18
--- OUTSIDE RECORDS SUMMARY | 2024-12-13 13:58 | XMS_ITS | Encounter Summary ---
Author Organization [facility] Address [address] [facility] [place] [address] Care Team Providers Care Oil Deliverer Name Role Phone John Mcdaniels DO Primary Care Provider [phone] Encounter Details Date Type Department Care Team (Late st Contact Info) Description 04/27/2024 Abstract [facility] [address] [place] [address] Jordan Barron DO [address] [place] [address] Social History Tobacco Use Types Packs/Day Years [...] on filedocumented in this encounter Care Teams Oil Deliverer Relationship Specialty Start Date End Date John Mcdaniels DO PCP - General Internal Medicine 12/23/22 documented as of this encounter
--- OUTSIDE RECORDS SUMMARY | 2024-12-13 13:59 | XMS_ITS | Clinical Summary ---
Author Organization [facility] Address [address] [place] [address] Care Team Providers Care Rn Recruitment Name Role Phone John Mcdaniels DO Primary Care Provider [phone] Allergies Active Allergy Reactions Criticality Noted Date Comments Cephalexin GI intolerance 06/30/2018 Medications Medication Sig Dispensed Refills Start Date [...] mg by mouth if needed. 04/06/2023 Active HYDROcodone-acet aminophen ([place]) 5-325 mg tablet TAKE 1 TABLET BY MOUTH 3 TIMES A DAY NEEDED FOR PAIN*MUS LAST 30 DAYS 06/30/2023 Active leflunomide (Arava) 10 mg tablet 10 mg. 06/07/2017 Active methylPREDNISolo ne (Medrol Dospak) 4 mg tablets 10/22/2023 Active omeprazole (PriLOSEC) [address] capsule 40 mg. 09/27/2023 Active pregabalin (Lyrica) 150 mg capsule 10/25/2023 Active tiZANidine (Zanaflex) 4 mg tablet tizanidine 4 mg tablet 04/30/2017 Active Rinvoq 15 mg tablet extended release 24 hr 10/21/2023 Active valACYclovir (Valtrex) 1 gram tablet 11/03/2023 Active lisinopril 5 mg tabletIndication s:Chronic systolic congestive heart failure (CMS/HCC) Take 1 tablet (5 mg) by mouth in the morning. 90 tablet 3 11/04/2023 Active metoprolol succinate XL (Toprol-XL) 100 mg 24 hr tabletIndication s:Heart failure with improved ejection fraction (HFimpEF) (CMS/HCC) Take 1 tablet (100 mg) by mouth in the morning. Do not crush or chew. 90 tablet 3 12/10/2024 12/10/2025 Active metoprolol succinate XL (Toprol-XL) 100 mg 24 hr tabletIndication s:Chronic systolic congestive heart failure (CMS/HCC) Take 1 tablet (100 mg) by mouth in the morning. Do not crush or chew. 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 Bradycardia 12/10/2024 Chronic systolic congestive heart failure 2023 Nonischemic cardiomyopathy 11/04/2023 Mixed hyperlipidemia 11/04/2023 Closed fracture of upper end of fibula 0 Loculated empyema 05/16/2018 Cervical stenosis of spinal canal 10/21/2017 Foraminal stenosis of cervical region 10/13/2017 Degenerative joint disease of hand 12/15/2012 Acute pericarditis 11/05/2011 Essential hypertension 11/05/2011 Rheumatoid arthritis 10/21/2011 Encounters Date Type Department Care Team Description 12/10/2024 3:45 PM EDT Office Visit [address] [address] Yakov Trotter MD Nonischemic cardiomyopathy (CMS/HCC) (Primary Dx); Heart failure with improved ejection fraction (HFimpEF) (CMS/HCC); Mixed hyperlipidemia 12/10/2024 Refill [facility] [address] [place] [address] Mica Valadez MA 12/06/2024 Orders Only [address] [place] [address] Provider, MD Ricky from Last 3 Months Family History Medical History Relation Name Comments Coronary artery disease Mother Relation Name Status Comments Father Alive Mother Social History Tobacco Use Types Packs/Day Years [...] Pulse 75 12/10/2024 4:23 PM EDT Temperature 36.3 C (97.3 F) 06/25/2019 9:18 AM EST Respiratory Rate 16 11/04/2023 3:25 PM EDT Oxygen Saturation 97% 12/10/2024 4:23 PM EDT Inhaled Oxygen Concentration - - Weight 58.5 kg (129 lb) 12/10/2024 4:23 PM EDT Height 165.1 cm (5' 5 ) 12/10/2024 4:23 PM EDT Body Mass Index 21.47 12/10/2024 4:23 PM EDT Plan of Treatment Health Maintenance [...] on patient's age to complete this topic Procedures Procedure Name Priority Date/Time Associated Diagnosis Comments COMPLETE TRANSTHORACIC ECHO (TTE) W/WO IMAGING AGENT, STRAIN, 3D, BUBBLE STUDY Routine 12/05/2024 2:53 PM EDT from Last 3 Months Results * Complete Echo (TTE) w/wo Imaging Agent, Strain, 3D, Bubble Study (12/05/2024 2:53 PM EDT) Anatomical Region Laterality Modality Ultrasound Historical Provider MD SOW ECHO PROCEDURE S from Last 3 Months Care Teams Rn Recruitment Relationship Specialty Start Date End Date John Mcdaniels DO [address] [facility] [place] [address] [place] [address] PCP - General 11/08/23
--- OUTSIDE RECORDS SUMMARY | 2024-12-13 13:59 | XMS_ITS | Encounter Summary ---
Author Organization [facility] Address [address] [facility] [place] [address] Care Team Providers Care Gantry Rigger Name Role Phone John Mcdaniels DO Primary Care Provider [phone] Encounter Details Date Type Department Care Team (Late st Contact Info) Description 01/25/2023 Abstract [facility] [address] [place] [place] [id number] Jordan Barron DO [address] [place] [address] Social History Tobacco Use Types Packs/Day Years [...] on filedocumented in this encounter Care Teams Gantry Rigger Relationship Specialty Start Date End Date John Mcdaniels DO PCP - General Internal Medicine 12/23/22 documented as of this encounter
--- OUTSIDE RECORDS SUMMARY | 2024-12-13 13:59 | XMS_ITS | Encounter Summary ---
Author Organization [facility] Address [address] [place] [address] Care Team Providers Care Picture Frames Inspector Name Role Phone John Mcdaniels DO Primary Care Provider [phone] Encounter Details Date Type Department Care Team (Late st Contact Info) Description 12/06/2024 Orders Only [facility] at [facility] [address] [place] [address] Provider, MD Ricky [address] [place] [address] Social History Tobacco Use Types Packs/Day Years [...] BUBBLE STUDY Routine 12/05/2024 2:53 PM EDT documented in this encounter Results * Complete Echo (TTE) w/wo Imaging Agent, Strain, 3D, Bubble Study (12/05/2024 2:53 PM EDT) Anatomical Region Laterality Modality Ultrasound Historical Provider MD SOW ECHO PROCEDURE S documented in this encounter Visit Diagnoses Not on filedocumented in this encounter Care Teams Picture Frames Inspector Relationship Specialty Start Date End Date John Mcdaniels DO [address] [facility] [place] [address] PCP - General 11/08/23 documented as of this encounter
--- OUTSIDE RECORDS SUMMARY | 2024-12-13 13:59 | XMS_ITS | Encounter Summary ---
Author Organization [facility] Address [address] [place] [address] Care Team Providers Care Fountain Clerk Name Role Phone John Mcdaniels DO Primary Care Provider [phone] Reason for Visit * Reason Onset Date Comments Med Refill 12/10/2024 Encounter Details Date Type Department Care Team (Late st Contact Info) Description 12/10/2024 Refill [facility] [address] [place] [address] Mica Valadez MA Social History Tobacco Use Types Packs/Day Years Used Date Smoking Tobacco: Former Cigarettes Passive Smoke Exposure: Past Smokeless Tobacco: Never Alcohol Use Standard Drinks/Week [...] on filedocumented in this encounter Care Teams Fountain Clerk Relationship Specialty Start Date End Date John Mcdaniels DO [address] [place] [facility] [address] PCP - General 11/08/23 documented as of this encounter
--- OUTSIDE RECORDS SUMMARY | 2024-12-13 13:59 | XMS_ITS | Encounter Summary ---
Author Organization [facility] Address [address] [facility] [place] [address] Care Team Providers Care Project Manager/Design Manager Name Role Phone John Mcdaniels DO Primary Care Provider [phone] Encounter Details Date Type Department Care Team (Late st Contact Info) Description 04/06/2023 Clinisync Result Encounter [facility] External Department Unsolicited Jordan Barron, [address] [place], [place] [address] Social History Tobacco Use Types Packs/Day Years [...] on filedocumented in this encounter Care Teams Project Manager/Design Manager Relationship Specialty Start Date End Date John Mcdaniels DO PCP - General Internal Medicine 12/23/22 documented as of this encounter
--- OUTSIDE RECORDS SUMMARY | 2024-12-13 13:59 | XMS_ITS | Clinical Summary ---
Author Organization [facility] Address [address] [place] [address] Care Team Providers Care Industrial Economics Teacher Name Role Phone John Mcdaniels DO Primary Care Provider [phone] Allergies No known active allergies Medications buPROPion [...] on file Medical Devices Implanted Type Area Fourchette Sewer Device Identifier Shelf Expiration Date Model / Serial / Lot Optio - C Allograft Implanted:Qty : 1 on 10/20/2017 by Prosper Gomes MD at [facility] Bone/[place] t/Tissue/ Human/Syn th Left: Neck 02/08/2020 [id number] / / [id number] Optio - C Plate Implanted:Qty : 1 on 10/20/2017 by Prosper Gomes MD at [facility] Screw/Bry te/Nail/R od Left: Neck 09/08/2019 [id number] / / [id number] Impl Spacer Spine Fortitude Duo [id number] Implanted:Qty : 1 on 10/20/2017 by Prosper Gomes MD at [facility] Spine Right: Neck [employer]-PMM 10/19/2020 [id number] / / [id number] Screw Sd [place] Plus Ti 12mm Implanted:Qty : 2 on 10/20/2017 by Prosper Gomes MD at [facility] Spine Right: Neck [place]: [employer]-[facility] 12 MM SCREWS [id number] / / 16 Mm Plate Implanted:Qty : 1 on 10/20/2017 by Prosper Gomes MD at [facility] Right: Neck [id number] / / 10 Mm Screw Implanted:Qty : 2 on 10/20/2017 by Prosper Gomes MD at [facility] Right: Neck [id number] / / Spacer Clip Implanted:Qty : 1 on 10/20/2017 by Prosper Gomes MD at [facility] Right: Neck [id number] / / 12 Mm Variable Screw Implanted:Qty : 2 on 10/20/2017 by Prosper Gomes MD at [facility] Left: Neck [id number] / / 14 Mm Variable Screw Implanted:Qty : 1 on 10/20/2017 by Prosper Gomes MD at [facility] Left: Neck [id number] / / Insurance [employer] [facility] Advance Directives * Full Code (Latest Code Status on File) Date Activated Date Inactivated Comments 10/20/2017 1:09 PM 10/21/2017 11:39 PM Care Teams Industrial Economics Teacher Relationship Specialty Start Date End Date John Mcdaniels DO PCP - General Internal Medicine 10/11/17
--- OUTSIDE RECORDS SUMMARY | 2024-12-13 13:59 | XMS_ITS | Encounter Summary ---
Author Organization [facility] Address [address] [place] [address] Care Team Providers Care Air Carrier Inspector Name Role Phone John Mcdaniels DO Primary Care Provider [phone] Reason for Visit * Reason Comments Med Refill Encounter Details Date Type Department Care Team (Late st Contact Info) Description 01/20/2023 Refill [facility] Cardiology [address] [place] [address] Kate Ramirez, ASSAULT AMPHIBIOUS VEHICLE OFFICER [address] [place] [address] Benign hypertensive heart disease with [...] (CMS/HCC) documented in this encounter Care Teams Air Carrier Inspector Relationship Specialty Start Date End Date John Mcdaniels DO [address] [place] [address] [address] [place] [address] PCP - General 11/08/23 documented as of this encounter
--- OUTSIDE RECORDS SUMMARY | 2024-12-13 13:59 | XMS_ITS | Referral Summary ---
Author Organization [facility] Address [address] [place] [address] Care Team Providers Care Retail Beauty Specialist Name Role Phone John Mcdaniels DO Primary Care Provider Encounters Date Type Department Care Team Description 12/10/[address] [facility] [address] [place] [address] Mica Valadez MA 12/10/2024 3:45 PM EDT Office Visit [facility] [address] [place] [address] Yakov Trotter MD Nonischemic cardiomyopathy (CMS/HCC) (Primary Dx); Heart failure with improved ejection fraction (HFimpEF) (CMS/HCC); Mixed hyperlipidemia 12/06/[address] [facility] [address] [place] [address] ProviderRicky MD from Last 3 Months Allergies Active Allergy Reactions Criticality Noted Date [...] mouth if needed. 04/06/2023 Active HYDROcodone-acet aminophen ([place]) 5-325 mg tablet TAKE 1 TABLET BY [...] 11/05/2011 Essential hypertension 11/05/2011 Rheumatoid arthritis 10/21/2011 Social History Tobacco Use Types Packs/Day Years [...] 12/10/2024 4:23 PM EDT Plan of Treatment Not on file Procedures Procedure Name Priority Date/Time Associated Diagnosis Comments COMPLETE TRANSTHORACIC ECHO (TTE) W/WO IMAGING AGENT, STRAIN, 3D, BUBBLE STUDY Routine 12/05/2024 2:53 PM EDT from Last 3 Months Results * Complete Echo (TTE) w/wo Imaging Agent, Strain, 3D, Bubble Study (12/05/2024 2:53 PM EDT) Anatomical Region Laterality Modality Ultrasound Historical Provider MD SOW ECHO PROCEDURE S from Last 3 Months Care Teams Retail Beauty Specialist Relationship Specialty Start Date End Date John Mcdaniels DO [address] [facility] [place] [address] PCP - General 11/08/23
--- NOTE | 2024-12-13 14:24 | PM.CN ---
Consult Note: HPI Data of Consult Patient: known to practice within the last 3 years Requesting Physician: Veronique Yu NP Primary Care Provider: John Mcdaniels, DO Consult Narrative Reason for consult: f/u Narrative: Radha Obrien a pleasant 64 year old female presents for evaluation of chronic pain. longstanding hx of chronic neck pain, shoulder pain, low back and bilateral hip pain. Hx of C3-7 fusion, previously found benefit to RFAs and ESIs. has failed to benefit from > 6 weeks of PT and provider guided HEP, heat, ice, tylenol, and NSAIDs. currently utilizing pregabalin 150mg TID, tizanidine 4mg TID PRN pain/spasms, and hydrocodone-acetaminophen BID-TID PRN moderate to severe pain. Pain today 6/10 in left shoulder, increasing to 10/10 with standing, walking, ROM, lifting, activity. denies falls or injury. following with orthopedic surgery for evaluation of left shoulder, now they are recommending a total left shoulder replacement however she does not wish to undergo surgery. recent left suprascapular/axillary nerve block provided >80% improvement in pain and functional ability while anesthetized, preop pain up to 10/10 post op pain /10. cc:: CC: Veronique Yu NP Review of Systems ROS Status of ROS 10 or more systems reviewed and unremarkable except as noted in history and below Musculoskeletal Reports: back pain, neck pain and joint pain PFSH PFS Medical History (Updated 10/17/24 @ 14:44 by Veronique Yu NP) Neck pain ?M54.2 - Cervicalgia (ICD-10) Low back pain ?M54.50 - Low back pain, unspecified (ICD-10) Osteoarthritis ?M19.90 - Unspecified osteoarthritis, unspecified site (ICD-10) Rheumatoid arthritis ?M06.9 - Rheumatoid arthritis, unspecified (ICD-10) TMJ (dislocation of temporomandibular joint) ?S03.00XA - Dislocation of jaw, unspecified side, initial encounter (ICD-10) Heartburn ?R12 - Heartburn (ICD-10) Pleural effusion ?J90 - Pleural effusion, not elsewhere classified (ICD-10) Irregular heart beat ?I49.9 - Cardiac arrhythmia, unspecified (ICD-10) Surgical History H/O exploratory thoracotomy ?Z98.890 - Other specified postprocedural states (ICD-10) H/O cervical spine surgery ?Z98.890 - Other specified postprocedural states (ICD-10) H/O shoulder surgery ?Z98.890 - Other specified postprocedural states (ICD-10) H/O foot surgery ?Z98.890 - Other specified postprocedural states (ICD-10) H/O: hysterectomy ?Z90.710 - Acquired absence of both cervix and uterus (ICD-10) H/O hand surgery ?Z98.890 - Other specified postprocedural states (ICD-10) H/O lumbosacral spine surgery ?Z98.890 - Other specified postprocedural states (ICD-10) Social History Little interest or pleasure in doing things: not at all Feeling down, depressed, or hopeless: not at all Meds Home Medications and Allergies Home Medications ?Medication ?Instructions ?Recorded ?Confirmed ?Type bupropion HCl 150 mg tablet,12 hr 150 mg PO DAILY 12/15/22 11/19/24 History sustained-release (Wellbutrin SR) calcium PO .qd 12/15/22 History citalopram 20 mg tablet (Celexa) 20 mg PO DAILY 12/15/22 11/19/24 History leflunomide 10 mg tablet (Arava) 10 mg PO DAILY 12/15/22 11/19/24 History metoprolol succinate 25 mg 25 mg PO DAILY 12/15/22 11/19/24 History tablet,extended release 24 hr (Toprol XL) tizanidine 4 mg tablet (Zanaflex) See Rx Instructions .Route 11/24/23 11/19/24 Rx .COMPLEX PRN muscle spasticity #360 tabs pregabalin 150 mg capsule (Lyrica) 150 mg PO TID #270 caps 06/26/24 11/19/24 Rx hydrocodone 5 mg-acetaminophen 325 1 tab PO TID PRN pain #90 tabs 10/17/24 11/19/24 Rx mg tablet hydrocodone 5 mg-acetaminophen 325 1 tab PO TID PRN pain #90 tabs 11/16/24 11/19/24 Rx mg tablet Allergies Allergy/AdvReac Type Severity Reaction Status Date / Time No Known Drug Allergies Allergy Verified 11/19/24 08:50 Exam Constitutional Documenting provider has reviewed patient's vital signs: yes Common normals: no apparent distress, oriented x3, healthy appearing, alert and well nourished General appearance: cooperative HENNC Common normals: normocephalic, hearing grossly normal bilaterally and moist oral mucous membranes Head and scalp: normocephalic Eye Common normals: PERRL Pupil: PERRL Neck & C-Spine Common normals: full ROM General: normal visual inspection Other: negative spurlings Chest Common normals: inspection of chest normal Respiratory Common normals: normal respiratory effort, no retractions and no use of accessory muscles Back & Pelvis Lumbar spine/lower back: pain with ROM and lumbar spinal tenderness Sacroiliac joints: SI joints normal Other: bilateral sij negative parth(patricks), gaenslens, thigh thrust, compression test Extremity Left upper extremity: shoulder joint Other: increased pain and dysthesia over left suprascapular and axillary nerves unable to perform posterior liftoff and apleys scratch test, left side positive empty can Neuro Common normals: oriented x3 Sensorium/orientation: alert Motor exam: strength 5/5 throughout and no movement abnormalities noted Psych Common normals: mental status grossly normal, thought process normal, cooperative, affect normal, speech normal and activity/motor behavior normal Speech: normal speech Thought process: normal thought process Results Additional Findings Additional findings: If on a controlled substance or opioids, I have checked an [place]AR[place] report on this patient and there are no aberrancies noted in the prescribing history.??If on a controlled substance or opioid a drug screen was completed and reviewed within the last year, and if there has not been a drug screen completed we ordered one today to monitor higher risk, state monitored pain medication use. As part of providing excellent, safe, comprehensive care, the following was completed at our patient's visit: 1. A medication reconciliation and review to ensure accurate knowledge of current/active medications, including asking our patients to inform us about any nhmf-xvw-fkpuvkc medications or herbal remedies/nutritional supplements/alternative remedies. 2. A review to specifically ensure our patients have had annual screening for screening for depression, screening for tobacco use, and screening for unhealthy alcohol use. For concerning screenings had a discussion with the patient, provided patient education, and recommended follow-up with primary care provider when appropriate. If patient noted with a risk of falling, they received education on strength, gait, and balance training to prevent future risk of falling. Portions of this note may have been carried over from the previous visit and updated as appropriate. Please note this office utilizes paper charting in addition to the electronic medical record. A list of current medications, vitals, and PMH is available there as the clinical staff outside of myself do not have access to [employer] charting during the clinic day operations. As part of providing quality comprehensive care the current medications, vitals, and PMH were reviewed in the paper chart. Assessment and Plan Assessment and Plan (1) Osteoarthritis of left shoulder: (2) Chronic pain of both shoulders: (3) Myofascial pain: (4) Chronic prescription opiate use: Assessment and Plan: I feel these medications are improving the patient's quality of life and allow them to tolerate activities of daily living as well as participate in recreational activity.? The patient does not report intolerable side effects. The patient is NOT opioid naive and non-pharmacologic and non-opioid treatment has failed to significantly relieve the patient's pain and improve functionality. The patient has a diagnosis that is related to a somatic or visceral pain etiology. ? ?? I reviewed with the patient the potential risks and side effects with the use of? opioid medications including but not limited to respiratory depression,? sedation, and even . Within the last 12 months I have verified the patient has access to naloxone should? these effects occur. The patient was advised to let? their family know they had Naloxone in case they would need to administer? the medication. I advised the patient to avoid the use of any other? sedation substances including alcohol, THC, and benzodiazepines while? taking opioid medications due to the risk of compounding side effects and? detrimental outcomes. within the last 12 months I have reviewed the VEHICLE ASSEMBLER, pain treatment agreement and urine drug screen.? ?? A drug screen was completed within the last year, and no aberrancies were noted regarding their use of controlled substances. The patient understands they are subject to the terms and conditions of the pain contract that they have signed. ? ?? I have checked an OARRS report on this patient today and there are no aberrancies noted in the prescribing history.? Plan left suprascapular and axillary nerve RFA under fluoroscopy for chronic left shoulder pain unresponsive to > 6 weeks of PT, provider guided HEP, heat, ice, tylenol, nsaids continue f/u with orthopedics as planned, pt delaying total shoulder replacement at this time continue tizanidine 4mg TID PRN pain/spasms continue lyrica 150mg TID continue hydrocodone-acetaminophen 5-325mg TID PRN moderate to severe pain 90 tabs to last 30 days, if pt fails RFA consider increasing dose f/u 1 month after RFA complete
== END 2024-12-13 13:57 | disposition home or self-care (01) ==
LOC: PM 13:57
PROVIDERS: PCP Internal Medicine; Visit Provider Nurse Practitioner
DX: M19.012 Primary osteoarthritis, left shoulder (principal); M25.512 Pain in left shoulder; M25.511 Pain in right shoulder; M79.18 Myalgia, other site; Z79.891 Long term (current) use of opiate analgesic; Z12.31 Encounter for screening mammogram for malignant neoplasm of breast; Z80.3 Family history of malignant neoplasm of breast; Z80.42 Family history of malignant neoplasm of prostate
CPT/HCPCS: 77063; 77067; G0463

== ENCOUNTER 2024-12-13 14:50 | Outpatient (OUT) | payer MEDICARE, SELFPAY ==
--- OUTSIDE RECORDS SUMMARY | 2024-12-10 15:45 | XMS_ITS | Encounter Summary ---
Author Organization [facility] Address [address] [place] [address] Care Team Providers Care Beauty Culturist Name Role Phone John Mcdaniels DO Primary Care Provider [phone] Encounter Details Date Type Department Care Team (Late st Contact Info) Description 12/10/2024 3:45 PM EDT Office Visit [facility] at [address] [place] [address] Yakov Trotter MD [address] [facility] [place] [address] Nonischemic cardiomyopathy (CMS/HCC) (Primary Dx); [...] from the original note were not included. [place] [facility] Subjective Radha Obrien is a 64 [...] In the past she was admitted to [facility] with pneumonia and empyema, underwent chest [...] mouth if needed., Disp: , Rfl: HYDROcodone-acetaminophen ([place]) 5-325 mg tablet, TAKE 1 TABLET BY [...] hyperlipidemia documented in this encounter Care Teams Beauty Culturist Relationship Specialty [place] [address] [place] [phone] PCP - General 11/08/23 documented as of this encounter
--- OUTSIDE RECORDS SUMMARY | 2024-12-13 14:52 | XMS_ITS | Encounter Summary ---
[facility] Address [address] [place] [address] Care Team Providers Care Manager Pricing Name Role Phone John Mcdaniels DO Primary Care Provider [phone] Reason for Visit * Reason Onset Date Comments Other 11/03/2018 Records for 05/13 , 09/08/18 faxed to [employer]. Encounter Details Date Type Department Care Team (Late st Contact Info) Description 11/03/2018 Telephone [place]ala. [address], [address] [place], [place] [id number] Prosper Gomes MD Other (Records for 06/09/18, 09/08/18 faxed to [employer].) Social History Tobacco Use Types Packs/Day Years [...] on filedocumented in this encounter Care Teams Manager Pricing Relationship Specialty Start Date End Date John Mcdaniels DO PCP - General Internal Medicine 10/11/17 documented as of this encounter
--- OUTSIDE RECORDS SUMMARY | 2024-12-13 14:52 | XMS_ITS | Encounter Summary ---
Author Organization [facility] Address [address] [facility] [address] Care Team Providers Care Academic Coordinator Name Role Phone John Mcdaniels DO Primary Care Provider [phone] Encounter Details Date Type Department Care Team (Late st Contact Info) Description 09/20/2023 Orders Only [facility] [address] [place] [address] Kate Scruggs ARRT [address] [place] [address] Social History Tobacco Use Types Packs/Day Years [...] on filedocumented in this encounter Care Teams Academic Coordinator Relationship Specialty Start Date End Date John Mcdaniels DO PCP - General Internal Medicine 12/23/22 documented as of this encounter
--- OUTSIDE RECORDS SUMMARY | 2024-12-13 14:52 | XMS_ITS | Encounter Summary ---
Author Organization [facility] Address [address] [facility] [place] [address] Care Team Providers Care Log Haul Operator Name Role Phone John Mcdaniels DO Primary Care Provider [phone] Encounter Details Date Type Department Care Team (Late st Contact Info) Description 04/27/2024 Abstract [facility] [address] [place] [address] Jordan Barron DO [address] [place] [address] Social History Tobacco Use Types Packs/Day Years [...] on filedocumented in this encounter Care Teams Log Haul Operator Relationship Specialty Start Date End Date John Mcdaniels DO PCP - General Internal Medicine 12/23/22 documented as of this encounter
--- OUTSIDE RECORDS SUMMARY | 2024-12-13 14:52 | XMS_ITS | Clinical Summary ---
Author Organization Mobile [employer] tem Address [id number] [address] [place] [address] Care Team Providers Care Quality Assurance Lab Technician Name Role Phone John Mcdaniels DO Primary Care Provider [phone] Allergies No known active allergies Medications dilTIAZem [...] Devices Not on file Insurance [employer] [facility] Care Teams Quality Assurance Lab Technician Relationship Specialty Start Date End Date John Mcdaniels DO [address] [place] [address] PCP - General Internal Medicine 05/16/18
--- OUTSIDE RECORDS SUMMARY | 2024-12-13 14:52 | XMS_ITS | Encounter Summary ---
Author Organization [facility] Address [address] [place] [address] Care Team Providers Care Firefighter Name Role Phone John Mcdaniels DO Primary Care Provider [phone] Reason for Visit * Reason Onset Date Comments Medication Refill Medication Refill 04/04/2019 Medication Refill 04/10/2019 Encounter Details Date Type Department Care Team (Late st Contact Info) Description 04/04/2019 Refill [employer] [employer]. [address], [address] [place] [address] Prosper Gomes MD Medication Refill; Medication Refill; [...] myelopathy documented in this encounter Care Teams Firefighter Relationship Specialty Start Date End Date John Mcdaniels DO PCP - General Internal Medicine 10/11/17 documented as of this encounter
--- OUTSIDE RECORDS SUMMARY | 2024-12-13 14:52 | XMS_ITS | Encounter Summary ---
Author Organization [facility] Address [address] [place] [address] Care Team Providers Care Live Truck Operator Name Role Phone John Mcdaniels DO Primary Care Provider [phone] Encounter Details Date Type Department Care Team (Late st Contact Info) Description 09/06/2023 Clinisync Result Encounter [facility] Department Unsolicited Jordan Barron, [address] [place], [place] [id number] Social History Tobacco Use Types Packs/Day Years [...] W/O CONTRAST RIGHT 09/06/2023 5:01 PM EST [facility]IS[facility]ANEOUS-LC Routine 09/06/2023 4:18 PM EST [...] Barron DO [facility] IMAGING Final Result * [facility]-LC (09/06/2023 4:18 PM EST) [facility]OUS COMMENT [facility] Comment: Test Ordered: [id number] Interleukin-6, Serum Interleukin-6, Serum <2.5 pg/mL CB [...] endotracheal intubation or mechanical ventilation. Performed at: Lab[address] [id number] PhD Saturnino Morse [facility] CODE [id number] [facility] TEST NAME interleukin 6 [facility] 09/06/2023 4:18 PM EST 09/06/2023 4:35 PM EST Narrative [facility]IN[facility] - 09/08/2023 1:10 PM EST Original Ordering Provider: DO Jordan Barron Jordan Barron DO CLINISYKYM Final Result Performing Organization Address City/State/[facility] Co de Phone Number [facility] documented in this encounter Visit Diagnoses Not on filedocumented in this encounter Care Teams Live Truck Operator Relationship Specialty Start Date End Date John Mcdaniels DO PCP - General Internal Medicine 12/23/22 documented as of this encounter
--- OUTSIDE RECORDS SUMMARY | 2024-12-13 14:52 | XMS_ITS | Clinical Summary ---
Author Organization [facility] Address [address] [place] [address] Care Team Providers Care Chimney Construction Supervisor Name Role Phone ArslanJohn Diandra CAMPOS Primary Care Provider [phone] Allergies Active Allergy Reactions Criticality Noted Date [...] mg tablet Active Rinvoq 15 MG tablet sustained-relea se 24 hour Daily. Active buPROPion XL (Wellbutrin XL) 300 MG 24 hr tablet 3 Active pregabalin (Lyrica) 150 MG capsule 3 Active valACYclovir (Valtrex) 1 g tablet Take 2,000 mg by mouth in the morning and 2,000 mg before bedtime. 3 Active HYDROcodone-nic taminophen ([place]) 5-325 MG tablet 3 Active citalopram (CeleXA) 10 MG tablet 4 Active acetaminophen (Tylenol Extra Strength) 500 MG tabletIndicatio ns:Status post shoulder surgery Take 1 tablet (500 mg) by mouth every 4 (four) hours if needed for mild pain 40 tablet 4 Active lidocaine (Lidoderm) 5 % patchIndication s:Bilateral shoulder pain, unspecified chronicity Apply 1 patch over 12 hours topically Daily Remove & discard patch within 12 hours or as directed by . 30 patch 5 4 12/11/19 25 Active Problems No known active problems Encounters Date Type Department Care Team Description 10/04/2024 2:45 PM EDT Office Visit [facility] [address] [id number] Jordan Barron DO Complete tear of left rotator cuff, unspecified whether traumatic (Primary Dx) 10/04/2024 Bamboo flowsheet [facility] [address] [id number] Jordan Barron DO 10/04/2024 Travel 09/28/2024 Clinisync Result Encounter [facility] External Department Unsolicited Jordan Barron DO 09/18/2024 10:00 AM EDT Office Visit [facility] [address] [place] [address] Jordan Barron DO S/P arthroscopy of left shoulder (Primary Dx) 09/18/2024 Bamboo flowsheet [facility] [address] [address] Jordan Barron DO 09/18/2024 Travel from Last 3 Months Family History Medical History Relation Name Comments Cancer Father Pete [place] Diabetes Father Pete [place] Hypertension Father Pete [place] Stroke Father Pete [place] Cancer Mother Clarice [...] Months Insurance AARP MEDICARE COMPLETE Care Teams Chimney Construction Supervisor Relationship Specialty Start Date End Date John Mcdaniels DO PCP - General Internal Medicine 12/23/22
--- NOTE | 2024-12-13 14:53 | MM_ITS ---
Patient Name: ALEXANDER ZAIDI MR#: [id number] : 1960 Exam Date: 12/13/2024 Ordering Doctor: DR RAZIA ASHBY D.O. RADIOLOGY REPORT PROCEDURE: MM TOMOSYNTHESIS SCREENING BI COMPARISON: MM TOMOSYNTHESIS SCREENING BI, 12/13/2023. MG MAMM SCREEN 3D BRENNA CAD, 06/08/2022. MG MAMM SCREEN BRENNA W CAD, 01/27/2017. MG MAMM BRENNA SCRN W CAD DIG, 10/30/2013. INDICATIONS: Screening Calculator Name NCI Breast Cancer Risk Assessment Tool 5 Year Breast Cancer Risk 3.00% Lifetime Breast Cancer Risk 11.80% Personal Breast Cancer No Personal Ovarian Cancer No Treatments None Family Cancers Mother with breast cancer at age ~40; Father with prostate cancer at age 72. LOCATION: [facility] BREAST COMPOSITION: There are scattered areas of fibroglandular density. FINDINGS: RIGHT BREAST: No significant suspicious finding. Benign-appearing calcifications are present. LEFT BREAST: No significant suspicious finding. DIAGNOSTIC CATEGORY 2--BENIGN FINDING: RECOMMENDATIONS: ROUTINE MAMMOGRAM AND CLINICAL EVALUATION IN 12 MONTHS. PLEASE NOTE: A NORMAL MAMMOGRAM DOES NOT EXCLUDE THE POSSIBILITY OF BREAST CANCER. A CLINICALLY SUSPICIOUS PALPABLE LUMP SHOULD BE BIOPSIED. Dictated by: Cal Spangler MD on 12/13/2024 at 15:40 Approved by: Cal Spangler MD on 12/13/2024 at 15:43
--- OUTSIDE RECORDS SUMMARY | 2024-12-13 14:53 | XMS_ITS | Clinical Summary ---
Author Organization [facility] Address [address] [place] [address] Care Team Providers Care Tmr Teacher Name Role Phone John Mcdaniels DO Primary Care Provider [phone] Allergies No known active allergies Medications buPROPion [...] on file Medical Devices Implanted Type Area Weigh Boss Device Identifier Shelf Expiration Date Model / Serial / Lot Optio - C Allograft Implanted:Qty : 1 on 10/20/2017 by Prosper Gomes MD at [facility] Bone/[place] t/Tissue/ Human/Syn th Left: Neck 02/08/2020 [id number] / / [id number] Optio - C Plate Implanted:Qty : 1 on 10/20/2017 by Prosper Gomes MD at [facility] Screw/Bry te/Nail/R od Left: Neck 09/08/2019 [id number] / / [id number] Impl Spacer Spine Fortitude Duo [id number] Implanted:Qty : 1 on 10/20/2017 by Prosper Gomes MD at [facility] Spine Right: Neck JU[employer] SP[employer]-PMM 10/19/2020 [id number] / / [id number] Screw Sd [place] Plus Ti 12mm Implanted:Qty : 2 on 10/20/2017 by Prosper Gomes MD at [facility] Spine Right: Neck JN[place]: [employer] [facility] 12 MM SCREWS [id number] / / 16 Mm Plate Implanted:Qty : 1 on 10/20/2017 by Prosper Gomes MD at [facility] Right: Neck [id number] / / 10 Mm Screw Implanted:Qty : 2 on 10/20/2017 by Prosper Gomes MD at [facility] Right: Neck [id number] / / Spacer Clip Implanted:Qty : 1 on 10/20/2017 by Prosper Gomes MD at [facility] Right: Neck [id number] / / 12 Mm Variable Screw Implanted:Qty : 2 on 10/20/2017 by Prosper Gomes MD at [facility] Left: Neck [id number] / / 14 Mm Variable Screw Implanted:Qty : 1 on 10/20/2017 by Prosper Gomes MD at [facility] Left: Neck [id number] / / Insurance [employer] [facility] Advance Directives * Full Code (Latest Code Status on File) Date Activated Date Inactivated Comments 10/20/2017 1:09 PM 10/21/2017 11:39 PM Care Teams Tmr Teacher Relationship Specialty Start Date End Date John Mcdaniels DO PCP - General Internal Medicine 10/11/17
--- OUTSIDE RECORDS SUMMARY | 2024-12-13 14:53 | XMS_ITS | Encounter Summary ---
Author Organization [facility] Address [address] [place] [address] Care Team Providers Care Parking Enforcer Name Role Phone John Mcdaniels DO Primary Care Provider [phone] Encounter Details Date Type Department Care Team (Late st Contact Info) Description 12/06/2024 Orders Only [facility] [address] [place] [address] Provider, MD Ricky [address] [place] [address] Social History Tobacco Use Types Packs/Day [...] on filedocumented in this encounter Care Teams Parking Enforcer Relationship Specialty Start Date End Date John Mcdaniels DO [address] [facility] [place] [address] PCP - General 11/08/23 documented as of this encounter
--- OUTSIDE RECORDS SUMMARY | 2024-12-13 14:53 | XMS_ITS | Clinical Summary ---
Author Organization [facility] Address [address] [place] [address] Care Team Providers Care Skid Road Worker Name Role Phone John Mcdaniels DO Primary Care Provider [phone] Allergies Active Allergy Reactions Criticality Noted Date [...] mouth if needed. 04/06/2023 Active HYDROcodone-acet aminophen ([place]) 5-325 mg tablet TAKE 1 TABLET BY [...] Description 12/10/2024 3:45 PM EDT Office Visit [address] [address] Yakov Trotter MD Nonischemic cardiomyopathy (CMS/HCC) (Primary Dx); Heart failure with improved ejection fraction (HFimpEF) (CMS/HCC); Mixed hyperlipidemia 12/10/[address] [facility] [address] [place] [address] Mica Valadez MA 12/06/2024 Orders Only [address] [place] [address] Provider, MD Ricky [...] S from Last 3 Months Care Teams Skid Road Worker Relationship Specialty Start Date End Date John Mcdaniels DO [address] [facility] [place] [address] PCP - General 11/08/23
--- OUTSIDE RECORDS SUMMARY | 2024-12-13 14:53 | XMS_ITS | Encounter Summary ---
Author Organization [facility] Address [address] [place] [address] Care Team Providers Care Tack Picker Name Role Phone John Mcdaniels DO Primary Care Provider [phone] Reason for Visit * Reason Comments Medication Refill Encounter Details Date Type Department Care Team (Late st Contact Info) Description 10/13/2020 Refill [facility] [address], [address] [place], [place] [id number] [place] [address] [place] [address] [address] [place], [place] [id number] Medication Refill Social History Tobacco Use Types [...] myelopathy documented in this encounter Care Teams Tack Picker Relationship Specialty Start Date End Date John Mcdaniels DO PCP - General Internal Medicine 10/11/17 documented as of this encounter
--- OUTSIDE RECORDS SUMMARY | 2024-12-13 14:53 | XMS_ITS | Encounter Summary ---
Author Organization [facility] Address [address] [place] [place] [address] Care Team Providers Care Civil Engineer'S Aide Name Role Phone John Mcdaniels DO Primary Care Provider [phone] Encounter Details Date Type Department Care Team (Late st Contact Info) Description 03/24/2023 Clinisync Result Encounter [facility] External Department Unsolicited Jordan Barron, [address] [place], [place] [id number] Social History Tobacco Use Types Packs/Day Years [...] on filedocumented in this encounter Care Teams Civil Engineer'S Aide Relationship Specialty Start Date End Date John Mcdaniels DO PCP - General Internal Medicine 12/23/22 documented as of this encounter
--- OUTSIDE RECORDS SUMMARY | 2024-12-13 14:53 | XMS_ITS | Encounter Summary ---
Author Organization [facility] Address [address] [place] [address] Care Team Providers Care Word Processing Specialist Name Role Phone John Mcdaniels DO Primary Care Provider [phone] Reason for Visit * Reason Onset Date Comments Med Refill 12/10/2024 Encounter Details Date Type Department Care Team (Late st Contact Info) Description 12/10/2024 Refill [facility] [address] [place] [address] Mica Valadez MA Social History [...] on filedocumented in this encounter Care Teams Word Processing Specialist Relationship Specialty Start Date End Date John Mcdaniels DO [address] [facility] [place] [address] PCP - General 11/08/23 documented as of this encounter
--- OUTSIDE RECORDS SUMMARY | 2024-12-13 14:53 | XMS_ITS | Encounter Summary ---
Author Organization [facility] Address [address] [facility] [place] [address] Care Team Providers Care Receivables Specialist Name Role Phone John Mcdaniels DO Primary Care Provider [phone] Encounter Details Date Type Department Care Team (Late st Contact Info) Description 01/25/2023 Abstract [facility] [address] [place] [place] [id number] Jordan Barron DO [address] [place] [address] Social History Tobacco Use Types Packs/Day Years [...] on filedocumented in this encounter Care Teams Receivables Specialist Relationship Specialty Start Date End Date John Mcdaniels DO PCP - General Internal Medicine 12/23/22 documented as of this encounter
--- OUTSIDE RECORDS SUMMARY | 2024-12-13 14:53 | XMS_ITS | Referral Summary ---
Author Organization [facility] Address [address] [place] [address] Care Team Providers Care Speech Therapy Teacher Name Role Phone John Mcdaniels DO Primary Care Provider [phone] Encounters Date Type Department Care Team Description 12/10/[address] [facility] [address] [place] [address] Mica Valadez MA 12/10/2024 3:45 PM EDT Office Visit [facility] [address] [place] [address] Yakov Trotter MD Nonischemic cardiomyopathy (CMS/HCC) (Primary Dx); Heart failure with improved ejection fraction (HFimpEF) (CMS/HCC); Mixed hyperlipidemia 12/06/[address] [facility] [address] [place] [address] ProviderRicky MD from Last 3 [...] mouth if needed. 04/06/2023 Active HYDROcodone-acet aminophen (Lucas) 5-325 mg tablet TAKE 1 TABLET BY [...] S from Last 3 Months Care Teams Speech Therapy Teacher Relationship Specialty Start Date End Date John Mcdaniels DO [address] [facility] [place] [address] PCP - General 11/08/23
--- OUTSIDE RECORDS SUMMARY | 2024-12-13 14:53 | XMS_ITS | Encounter Summary ---
Author Organization [facility] Address [address] [facility] [place] [address] Care Team Providers Care Lighter Captain Name Role Phone John Mcdaniels Diandra CAMPOS Primary Care Provider [phone] Encounter Details Date Type Department Care Team (Late st Contact Info) Description 06/06/2023 Orders Only [facility] [address] [place] [address] Jordan Barron DO [address] [place] [address] Status post shoulder surgery (Primary Dx) Social [...] status documented in this encounter Care Teams Lighter Captain Relationship Specialty Start Date End Date John Mcdaniels DO PCP - General Internal Medicine 12/23/22 documented as of this encounter
--- OUTSIDE RECORDS SUMMARY | 2024-12-13 14:53 | XMS_ITS | Encounter Summary ---
Author Organization [facility] Address [address] [facility] [place] [address] Care Team Providers Care Director Of Primary Care Name Role Phone John Mcdaniels DO Primary Care Provider [phone] Encounter Details Date Type Department Care Team (Late st Contact Info) Description 04/06/2023 Clinisync Result Encounter [facility] External Department Unsolicited Jordan Barron, [address] [place], [place] [address] Social History Tobacco Use Types Packs/Day Years [...] on filedocumented in this encounter Care Teams Director Of Primary Care Relationship Specialty Start Date End Date John Mcdaniels DO PCP - General Internal Medicine 12/23/22 documented as of this encounter
--- OUTSIDE RECORDS SUMMARY | 2024-12-13 14:53 | XMS_ITS | Encounter Summary ---
Author Organization [facility] Address [address] [place] [address] Care Team Providers Care Refrigerated National Truck Driver Name Role Phone John Mcdaniels DO Primary Care Provider [phone] Reason for Visit * Reason Comments Medication Refill Encounter Details Date Type Department Care Team (Late st Contact Info) Description 12/24/2019 Refill [facility] [address], [address] [place] [address] Prosper Gomes MD Medication Refill Social History [...] myelopathy documented in this encounter Care Teams Refrigerated National Truck Driver Relationship Specialty Start Date End Date John Mcdaniels DO PCP - General Internal Medicine 10/11/17 documented as of this encounter
== END 2024-12-13 14:51 | disposition home or self-care (01) ==
LOC: MAMMO 14:51
PROVIDERS: PCP Internal Medicine; Visit Provider Internal Medicine
DX: Z12.31 Encounter for screening mammogram for malignant neoplasm of breast (principal); Z80.3 Family history of malignant neoplasm of breast; Z80.42 Family history of malignant neoplasm of prostate
CPT/HCPCS: 77063; 77067

== ENCOUNTER 2025-03-04 14:34 | Outpatient (OUT) | payer MEDICARE, SELFPAY ==
--- NOTE | 2025-03-04 15:24 | PM.CN ---
Consult Note: HPI Data of Consult Patient: known to practice within the last 3 years Consult date: 03/04/25 Requesting Physician: Veronique Yu NP Primary Care Provider: John Mcdaniels DO Consult Narrative Reason for consult: left shoulder pain Narrative: 64yof who presents for assessment. notes persistence of pain throughout left shoulder. previously underwent left shoulder injection >1 year ago, with good relief >3 months. continues to utilize norco, lyrica, zanaflex. denies adverse med side effects. cc:: CC: Veronique Yu NP Review of Systems ROS Status of ROS 10 or more systems reviewed and unremarkable except as noted in history and below PFSH PFSH Medical History Neck pain ?M54.2 - Cervicalgia (ICD-10) Low back pain ?M54.50 - Low back pain, unspecified (ICD-10) Osteoarthritis ?M19.90 - Unspecified osteoarthritis, unspecified site (ICD-10) Rheumatoid arthritis ?M06.9 - Rheumatoid arthritis, unspecified (ICD-10) TMJ (dislocation of temporomandibular joint) ?S03.00XA - Dislocation of jaw, unspecified side, initial encounter (ICD-10) Heartburn ?R12 - Heartburn (ICD-10) Pleural effusion ?J90 - Pleural effusion, not elsewhere classified (ICD-10) Irregular heart beat ?I49.9 - Cardiac arrhythmia, unspecified (ICD-10) Surgical History H/O exploratory thoracotomy ?Z98.890 - Other specified postprocedural states (ICD-10) H/O cervical spine surgery ?Z98.890 - Other specified postprocedural states (ICD-10) H/O shoulder surgery ?Z98.890 - Other specified postprocedural states (ICD-10) H/O foot surgery ?Z98.890 - Other specified postprocedural states (ICD-10) H/O: hysterectomy ?Z90.710 - Acquired absence of both cervix and uterus (ICD-10) H/O hand surgery ?Z98.890 - Other specified postprocedural states (ICD-10) H/O lumbosacral spine surgery ?Z98.890 - Other specified postprocedural states (ICD-10) Social History Little interest or pleasure in doing things: not at all Feeling down, depressed, or hopeless: not at all Meds Home Medications and Allergies Home Medications ?Medication ?Instructions ?Recorded ?Confirmed ?Type bupropion HCl 150 mg tablet,12 hr 150 mg PO DAILY 12/15/22 11/19/24 History sustained-release (Wellbutrin SR) calcium PO .qd 12/15/22 History citalopram 20 mg tablet (Celexa) 20 mg PO DAILY 12/15/22 11/19/24 History leflunomide 10 mg tablet (Arava) 10 mg PO DAILY 12/15/22 11/19/24 History metoprolol succinate 25 mg 25 mg PO DAILY 12/15/22 11/19/24 History tablet,extended release 24 hr (Toprol XL) tizanidine 4 mg tablet (Zanaflex) See Rx Instructions .Route 11/24/23 11/19/24 Rx .COMPLEX PRN muscle spasticity #360 tabs pregabalin 150 mg capsule (Lyrica) 150 mg PO TID #270 caps 06/26/24 11/19/24 Rx hydrocodone 5 mg-acetaminophen 325 1 tab PO TID PRN pain #90 tabs 01/14/25 Rx mg tablet hydrocodone 5 mg-acetaminophen 325 1 tab PO TID PRN pain #90 tabs 02/13/25 Rx mg tablet pregabalin 150 mg capsule (Lyrica) 150 mg PO TID #270 caps 03/04/25 Rx Allergies Allergy/AdvReac Type Severity Reaction Status Date / Time No Known Drug Allergies Allergy Verified 11/19/24 08:50 Exam Narrative Exam Narrative: Psych-alert and oriented x 3.? Attentive and appropriate, constitutionally normal, displays normal mood and affect per situation.? There are no obvious deficits in memory, reasoning, or intellect.? Skin-no obvious rashes, bruising, or erythema noted to the patient's area of pain. Extremities-upper extremities are warm with minimal edema and palpable pulses. Shoulder - tender to palpation in left shoulder. Pain appreciated with abduction, external rotation of left shoulder. Cervical- tenderness to palpation noted in the cervical spine and paraspinal musculature.? Pain is elicited with extension, and lateral rotation of the cervical spine.? Range of motion is slightly diminished due to pain. Coordination remains intact.? Gait remains non-antalgic. Assessment and Plan Assessment and Plan (1) Lumbar spondylosis: (2) Osteoarthritis of left shoulder: Qualifiers: Osteoarthritis type: primary Qualified Code(s): M19.012 - Primary osteoarthritis, left shoulder Plan 64yof who presents for assessment. failed conservative measures. in terms of low back, no issues at this time. in terms of left shoulder, given previous relief with injection last year, prudent to repeat left shoulder injection. she is in agreement. meds reviewed, no changes. follow up in 3 months or sooner, if needed. procedure: left shoulder injection medications: bupivacaine 0.25% 4cc, depomedrol 40mg I explained the details of the procedure to the patient including the risks, benefits, and alternatives.? We had an informed discussion.? The patient verbalized understanding and signed the consent form.? All questions were answered appropriately.? A time-out was performed.? After obtaining a comfortable seated position, the skin overlying the left shoulder was prepped with alcohol 3 times.? The sulcus between the head of the humerus and the acromion was identified.? The needle was inserted in a sterile manner 2 cm inferior and medial to the posterolateral corner of the acromion and was directed anteriorly toward the coracoid process. The contents of the syringe were gently injected without any resistance into the joint space after negative aspiration for blood or other bodily fluids.? The needle was removed and pressure was applied at the injection site to decrease the incidence of ecchymosis and hematoma formation.? A sterile bandage was applied.
== END 2025-03-04 14:35 | disposition home or self-care (01) ==
LOC: PM 14:35
PROVIDERS: PCP Internal Medicine; Visit Provider Nurse Practitioner
DX: M47.816 Spondylosis without myelopathy or radiculopathy, lumbar region (principal); M19.012 Primary osteoarthritis, left shoulder
CPT/HCPCS: 20610; J0665; J1010

== ENCOUNTER 2025-03-08 10:00 | Outpatient (OUT) | payer MEDICARE, SELFPAY ==
--- OUTSIDE RECORDS SUMMARY | 2025-03-08 10:04 | XMS_ITS | Encounter Summary ---
Author Organization [facility] Address [address] [place] [address] Care Team Providers Care Web Content & Social Media Manager Name Role Phone John Mcdaniels DO Primary Care Provider [phone] Encounter Details Date Type Department Care Team (Late st Contact Info) Description 09/06/2023 Clinisync Result Encounter [facility] External Department Unsolicited Jordan Barron, [address] [place], [place] [id number] Social History Tobacco Use Types Packs/Day Years [...] W/O CONTRAST RIGHT 09/06/2023 5:01 PM EST [facility] LAB MISCELLANEOUS-LC Routine 09/06/2023 4:18 PM EST [...] Barron DO [facility] IMAGING Final Result * [facility] MISCELLANEOUS-LC (09/06/2023 4:18 PM EST) [facility] MISCELLANEOUS COMMENT [facility] Comment: Test Ordered: [id number] Interleukin-6, Serum Interleukin-6, Serum <2.5 pg/mL CB [...] intubation or mechanical ventilation. Performed at: Lab[address] [id number] PhD Saturnino Morse [facility] TEST CODE [id number] [facility] TEST NAME interleukin 6 [facility] 09/06/2023 4:18 PM EST 09/06/2023 4:35 PM EST Narrative [facility] - 09/08/2023 1:10 PM EST Original Ordering Provider: DO Jordan Barron Jordan Barron DO CLINISYKYM Final Result Performing Organization Address City/State/[facility] Co de Phone Number [facility] documented in this encounter Visit Diagnoses Not on filedocumented in this encounter Care Teams Web Content & Social Media Manager Relationship Specialty Start Date End Date John Mcdaniels DO PCP - General Internal Medicine 12/23/22 documented as of this encounter
--- OUTSIDE RECORDS SUMMARY | 2025-03-08 10:04 | XMS_ITS | Encounter Summary ---
Author Organization [facility] Address [address] [facility] [address] [facility] [address], [address] [place] [address] Care Team Providers Care Groutman Name Role Phone John Mcdaniels DO Primary Care Provider [phone] Reason for Visit * Reason Onset Date Comments Other 11/03/2018 Records for 05/13 , 09/08/18 faxed to [facility]. Encounter Details Date Type Department Care Team (Late st Contact Info) Description 11/03/2018 Telephone [facility]. [address], [address] [place] [address] Prosper Gomes MD Other (Records for 06/09/18, 09/08/18 faxed to [facility].) Social History Tobacco Use Types Packs/Day Years [...] on filedocumented in this encounter Care Teams Groutman Relationship Specialty Start Date End Date John Mcdaniels DO PCP - General Internal Medicine 10/11/17 documented as of this encounter
--- OUTSIDE RECORDS SUMMARY | 2025-03-08 10:04 | XMS_ITS | Encounter Summary ---
Author Organization [facility] Address [address] [place] [address] Care Team Providers Care Packing Attendant Name Role Phone John Mcdaniels DO Primary Care Provider [phone] Encounter Details Date Type Department Care Team (Late st Contact Info) Description 03/24/2023 Clinisync Result Encounter [facility] External Department Unsolicited Jordan Barron, [address] [place], [place] [address] Social History Tobacco Use Types Packs/Day Years [...] on filedocumented in this encounter Care Teams Packing Attendant Relationship Specialty Start Date End Date John Mcdaniels DO PCP - General Internal Medicine 12/23/22 documented as of this encounter
--- OUTSIDE RECORDS SUMMARY | 2025-03-08 10:04 | XMS_ITS | Clinical Summary ---
Author Organization [facility] Address [address], [address] [place] [address] Care Team Providers Care Home Economist Consumer Service Name Role Phone John Mcdaniels DO Primary Care Provider [phone] Allergies No known active allergies Medications buPROPion [...] on file Medical Devices Implanted Type Area Synchronizer Device Identifier Shelf Expiration Date Model / Serial / Lot Optio - C Allograft Implanted:Qty : 1 on 10/20/2017 by Prosper Gomes MD at [facility] Bone/Froilan t/Tissue/ Human/Syn th Left: Neck 02/08/2020 [id number] / / [id number] Optio - C Plate Implanted:Qty : 1 on 10/20/2017 by Prosper Gomes MD at [facility] Screw/Bry te/Nail/R od Left: Neck 09/08/2019 [id number] / / [id number] Impl Spacer Spine Fortitude Duo [id number] Implanted:Qty : 1 on 10/20/2017 by Prosper Gomes MD at [facility] Spine Right: Neck [employer]-PMM 10/19/2020 [id number] / / [id number] Screw Sd [place] Peres Plus Ti 12mm Implanted:Qty : 2 on 10/20/2017 by Prosper Gomes MD at [facility] Spine Right: Neck JNJ: [facility] 12 MM SCREWS [id number] / / 16 Mm Plate Implanted:Qty : 1 on 10/20/2017 by Prosper Gomes MD at [facility] Right: Neck [id number] / / 10 Mm Screw Implanted:Qty : 2 on 10/20/2017 by Prosper Gomes MD at [facility] Right: Neck [id number] / / Spacer Clip Implanted:Qty : 1 on 10/20/2017 by Prosper Gomes MD at [facility] Right: Neck [id number] / / 12 Mm Variable Screw Implanted:Qty : 2 on 10/20/2017 by Prosper Gomes MD at [facility] Left: Neck [id number] / / 14 Mm Variable Screw Implanted:Qty : 1 on 10/20/2017 by Prosper Gomes MD at [facility] Left: Neck [id number] / / Insurance MMO [employer] [facility] Advance Directives * Full Code (Latest Code Status on File) Date Activated Date Inactivated Comments 10/20/2017 1:09 PM 10/21/2017 11:39 PM Care Teams Home Economist Consumer Service Relationship Specialty Start Date End Date John Mcdaniels DO PCP - General Internal Medicine 10/11/17
--- OUTSIDE RECORDS SUMMARY | 2025-03-08 10:04 | XMS_ITS | Encounter Summary ---
Author Organization [facility] Address [address] [facility] [place] [address] Care Team Providers Care Studio Artist Name Role Phone John Mcdaniels DO Primary Care Provider [phone] Encounter Details Date Type Department Care Team (Late st Contact Info) Description 01/25/2023 Abstract [facility] [address] [place] [address] Jordan Barron DO [address] [place] [address] Social History Tobacco Use Types Packs/Day Years [...] filedocumented in this encounter Care Teams Studio Artist Relationship Specialty Start Date End Date John Mcdaniels DO PCP - General Internal Medicine 12/23/22 documented as of this encounter
--- OUTSIDE RECORDS SUMMARY | 2025-03-08 10:04 | XMS_ITS | Clinical Summary ---
Author Organization [facility] Address [address] [place] [address] Care Team Providers Care Child Specialist Name Role Phone Arslan John Diandra CAMPOS Primary Care Provider [phone] Allergies Active Allergy Reactions Criticality Noted Date [...] mg before bedtime. 3 Active HYDROcodone-nic taminophen (Homestead) 5-325 MG tablet 3 Active citalopram (CeleXA) 10 MG tablet 4 Active acetaminophen (Tylenol Extra Strength) 500 MG tabletIndicatio ns:Status post shoulder surgery Take 1 tablet (500 mg) by mouth every 4 (four) hours if needed for mild pain 40 tablet 4 Active clindamycin (Cleocin) 300 MG capsuleIndicati ons:Hx of total shoulder replacement, right Take 2 capsules (600 mg) by mouth 1 time for 1 dose 2 tabs PO once 30-60 mins before dental procedure with food 2 capsule 3 5 02/14/20 25 Active Problems No known active problems Encounters Date Type Department Care Team Description 02/13/2025 Telephone [facility] [address] [place] [address] Hayde Soares RN from Last 3 Months Family History Medical [...] Screening 2024 FIT-DNA 2024 2021 Influenza Vaccine (#1) 2025 05/10/2019, 2017 Insurance [employer] MEDICARE COMPLETE Care Teams Child Specialist Relationship Specialty Start Date End Date John Mcdaniels DO PCP - General Internal Medicine 12/23/22
--- OUTSIDE RECORDS SUMMARY | 2025-03-08 10:04 | XMS_ITS | Clinical Summary ---
Author Organization [facility] Address [address] [place] [address] Care Team Providers Care Stunner Animal Name Role Phone John Mcdaniels DO Primary Care Provider [phone] Allergies Active Allergy Reactions Criticality Noted Date Comments Cephalexin GI intolerance 06/30/2018 Medications acetaminophen (Tylenol) 325 mg tablet Take 650 mg by mouth. 8 Active aspirin 81 mg EC tablet Take 1 tablet by mouth in the morning. Active buPROPion XL (Wellbutrin XL) 300 mg 24 hr tablet Take 300 mg by mouth. 3 Active citalopram (CeleXA) 20 mg tablet TAKE 1 TABLET BY MOUTH EVERY DAY AT BEDTIME *BEGIN AFTER 30 DAYS* 7 Active docusate sodium (Colace) 100 mg capsule Take 100 mg by mouth if needed. 3 Active HYDROcodone-nic taminophen (Dundas) 5-325 mg tablet TAKE 1 TABLET BY MOUTH 3 TIMES A DAY NEEDED FOR PAIN*MUS LAST 30 DAYS 3 Active leflunomide (Arava) 10 mg tablet 10 mg. 7 Active methylPREDNISol one (Medrol Dospak) 4 mg tablets 4 Active omeprazole (PriLOSEC) [address] capsule 40 mg. 4 Active pregabalin (Lyrica) 150 mg capsule 4 Active tiZANidine (Zanaflex) 4 mg tablet tizanidine 4 mg tablet 7 Active Rinvoq 15 mg tablet extended release 24 hr 4 Active valACYclovir (Valtrex) 1 gram tablet 4 Active lisinopril 5 mg tabletIndicatio ns:Chronic systolic congestive heart failure (CMS/HCC) Take 1 tablet (5 mg) by mouth in the morning. 90 tablet 3 4 Active metoprolol succinate XL (Toprol-XL) 100 mg 24 hr tabletIndicatio ns:Heart failure with improved ejection fraction (HFimpEF) (CMS/HCC) Take 1 tablet (100 mg) by mouth in the morning. Do not crush or chew. 90 tablet 3 5 12/11/19 Active Active Problems Problem Noted Date Diagnosed [...] Description 12/10/2024 3:45 PM EDT Office Visit [facility] [address] [place] [address] Yakov Trotter MD Nonischemic cardiomyopathy (CMS/HCC) (Primary Dx); Heart failure with improved ejection fraction (HFimpEF) (CMS/HCC); Mixed hyperlipidemia 12/10/2024 Refill [facility] [address] [place] [address] Mica Valadez MA 12/06/2024 Orders Only [facility] [address] [place] [address] Provider, MD Ricky from Last [...] Physically or Sexually Abused Not on file Comments Unknown Sex and Gender Information Value Date Recorded Sex Assigned at Not on file Legal Sex Female 10:21 PM EDT Gender Identity Not on file [...] 1960 Colonoscopy 1960 FIT 1960 FOBT 1960 Medicare Annual Wellness (AWV) 1960 Medicare Initial Physical (IPPE) 1960 Sigmoidoscopy 1960 Depression Screening 1972 Pneumococcal Vaccine: Pediatrics (0 to 5 Years) and At-Risk Patients (6 to 64 Years) (1 of 2 - PCV) 1979 Pap Smear 1981 Cervical Cancer Screening 1990 HPV/Cotest 1990 Mammogram 2000 Zoster Vaccines (1 of 2) 2010 COVID-19 Vaccine (3 - 2023-2 5 season) 2024 10/30/2020, 10/10/2020 Colorectal Cancer Screening 2024 FIT-DNA 2024 2021 Influenza Vaccine (#1) 2025 9, 04/19/2018 Adult Tetanus 04/21/2034 04/21/2024 HIB Vaccines [...] on patient's age to complete this topic Insurance [facility] MEDICARE ADVANTAGE Care Teams Stunner Animal Relationship Specialty Start Date End Date John Mcdaniels DO [address] [place] [place] [address] PCP - General 11/08/23
--- OUTSIDE RECORDS SUMMARY | 2025-03-08 10:04 | XMS_ITS | Encounter Summary ---
Author Organization [facility] Address [address] [facility] [place] [address] Care Team Providers Care Access Lead Name Role Phone John Mcdaniels DO Primary Care Provider [phone] Encounter Details Date Type Department Care Team (Late st Contact Info) Description 04/06/2023 Clinisync Result Encounter [facility] External Department Unsolicited Jordan Barron, [address] [place], [place] [address] Social History Tobacco Use Types Packs/Day Years [...] on filedocumented in this encounter Care Teams Access Lead Relationship Specialty Start Date End Date John Mcdaniels DO PCP - General Internal Medicine 12/23/22 documented as of this encounter
--- OUTSIDE RECORDS SUMMARY | 2025-03-08 10:04 | XMS_ITS | Encounter Summary ---
Author Organization [facility] Address [address] [facility] [place] [address] Care Team Providers Care E M Assembler Name Role Phone ArslanJohn Diandra CAMPOS Primary Care Provider [phone] Encounter Details Date Type Department Care Team (Late st Contact Info) Description 06/06/2023 Orders Only [facility] [address] [place] [address] Jordan Barron DO [address] [facility] [place] [address] Status post shoulder surgery (Primary Dx) Social [...] status documented in this encounter Care Teams E M Assembler Relationship Specialty Start Date End Date John Mcdaniels DO PCP - General Internal Medicine 12/23/22 documented as of this encounter
--- OUTSIDE RECORDS SUMMARY | 2025-03-08 10:04 | XMS_ITS | Encounter Summary ---
Author Organization [facility] Address [address] [facility] [address], [address] [place] [address] Care Team Providers Care Director Women Name Role Phone John Mcdaniels DO Primary Care Provider [phone] Reason for Visit * Reason Onset Date Comments Medication Refill Medication Refill 04/04/2019 Medication Refill 04/10/2019 Encounter Details Date Type Department Care Team (Late st Contact Info) Description 04/04/2019 [facility] [address], [address] [place] [address] Prosper Gomes MD Medication Refill; Medication Refill; [...] myelopathy documented in this encounter Care Teams Director Women Relationship Specialty Start Date End Date John Mcdaniels DO PCP - General Internal Medicine 10/11/17 documented as of this encounter
--- OUTSIDE RECORDS SUMMARY | 2025-03-08 10:04 | XMS_ITS | Encounter Summary ---
Author Organization [facility] Address [address], [address] [place] [address] Care Team Providers Care Gate Agent Name Role Phone John Mcdaniels DO Primary Care Provider [phone] Reason for Visit * Reason Comments Medication Refill Encounter Details Date Type Department Care Team (Late st Contact Info) Description 10/13/2020 [facility] [address], [address] [place] [address] [place] [address] [place] [address] [address] [place], [place] [id number] Medication Refill Social History Tobacco Use Types [...] myelopathy documented in this encounter Care Teams Gate Agent Relationship Specialty Start Date End Date John Mcdaniels DO PCP - General Internal Medicine 10/11/17 documented as of this encounter
--- OUTSIDE RECORDS SUMMARY | 2025-03-08 10:04 | XMS_ITS | Encounter Summary ---
Author Organization [facility] Address [address] [facility] [place] [address] Care Team Providers Care Weighing Station Operator Name Role Phone John Mcdaniels DO Primary Care Provider [phone] Encounter Details Date Type Department Care Team (Late st Contact Info) Description 09/20/2023 Orders Only [facility] [address] [place] [address] Kate Scruggs [facility] [address] [place] [address] Social History Tobacco Use Types Packs/Day Years [...] on filedocumented in this encounter Care Teams Weighing Station Operator Relationship Specialty Start Date End Date John Mcdaniels DO PCP - General Internal Medicine 12/23/22 documented as of this encounter
--- OUTSIDE RECORDS SUMMARY | 2025-03-08 10:04 | XMS_ITS | Clinical Summary ---
Author Organization [facility] Address [id number] [address] [place] [address] Care Team Providers Care Coil Tier Name Role Phone John Mcdaniels DO Primary Care Provider [phone] Allergies No known active allergies Medications dilTIAZem [...] Devices Not on file Insurance [employer] [facility] Care Teams Coil Tier Relationship Specialty Start Date End Date John Mcdaniels DO [address] [place] [address] PCP - General Internal Medicine 05/16/18
--- OUTSIDE RECORDS SUMMARY | 2025-03-08 10:04 | XMS_ITS | Encounter Summary ---
Author Organization [facility] Address [address] [place] [address] Care Team Providers Care Barman Name Role Phone John Mcdaniels DO Primary Care Provider [phone] Reason for Visit * Reason Comments Med Refill Encounter Details Date Type Department Care Team (Late st Contact Info) Description 01/20/2023 Refill [facility] [address] [place] [address] Kate Ramirez, LOSS PREVENTION SUPERVISOR [address] [place] [address] Benign hypertensive heart disease with heart failure (CMS/HCC) Social History Tobacco Use Types Packs/Day Years Used Date Smoking Tobacco: Never Assessed Comments Unknown Sex and Gender Information Value [...] (CMS/HCC) documented in this encounter Care Teams Barman Relationship Specialty Start Date End Date John Mcdaniels DO [address] [place] [address] [place] [id number] PCP - General 11/08/23 documented as of this encounter
--- OUTSIDE RECORDS SUMMARY | 2025-03-08 10:04 | XMS_ITS | Encounter Summary ---
Author Organization [facility] Address [address], [address] [place] [address] Care Team Providers Care Schedule Analyst Name Role Phone John Mcdaniels DO Primary Care Provider [phone] Reason for Visit * Reason Comments Medication Refill Encounter Details Date Type Department Care Team (Late st Contact Info) Description 12/24/2019 [facility] [address], [address] [place] [address] Prosper Gomes MD Medication Refill Social History [...] myelopathy documented in this encounter Care Teams Schedule Analyst Relationship Specialty Start Date End Date John Mcdaniels DO PCP - General Internal Medicine 10/11/17 documented as of this encounter
--- OUTSIDE RECORDS SUMMARY | 2025-03-08 10:04 | XMS_ITS | Encounter Summary ---
Author Organization [facility] Address [address] [facility] [place] [address] Care Team Providers Care Public Information Coordinator Name Role Phone John Mcdaniels DO Primary Care Provider [phone] Encounter Details Date Type Department Care Team (Late st Contact Info) Description 04/27/2024 Abstract [facility] [address] [place] [id number] Jordan Barron DO [address] [address] Social History Tobacco Use Types Packs/Day Years [...] on filedocumented in this encounter Care Teams Public Information Coordinator Relationship Specialty Start Date End Date John Mcdaniels DO PCP - General Internal Medicine 12/23/22 documented as of this encounter
--- OUTSIDE RECORDS SUMMARY | 2025-03-08 10:09 | XMS_ITS | CCD ---
Author Organization [facility] Care Team Providers Care Manager Mobile Name Role Phone BASIM, BARRY H. Unavailable Unavailable BASIM, BARRY H. Unavailable Unavailable BALL, JOHN E Unavailable Unavailable BASIM, BARRY H. Unavailable Unavailable BALL, JOHN E Unavailable Unavailable EBRAHEIM, MARYURI Attending Unavailable EBRAHEIM, MARYURI Admitting Unavailable BALL, JOHN Referring Unavailable BALL, JOHN Primary Care Unavailable EBRAHEIM, MARYURI Surgeon Unavailable LA Procedure Practitioner Unavailab le LA Procedure Practitioner Unavailab PRAKASH Chery Surgeon Unavailable EBRAHEIM, MARYURI Attending Unavailable SYMONE, JOHN Primary Care Unavailable BALL, JOHN Referring Unavailable EBRAHEIM, MARYURI Admitting Unavailable Ball, John Unavailable DANDRE ., DR SO Estrada Attending Unavailable BALL, DR LOPEZ Primary Care Unavailable AMOS ., DR SO Estrada Admitting Unavailable DENNIS, DR VANDANA Martínez Consulting Unavailable AMOS ., DR SO Estrada Consulting Unavailable OLIVAS ., JCAQUIE Landers Unavailable SYMONE, DR LOPEZ Primary Care [...] ., NARENDHAMILTONATH Admitting Amy vailable LAKSHMIPATHY ., NARRORO Consulting Amy vailable LAKSHMIPATHY ., NARRORO Attending Amy vailable SYMONE, DR LOPEZ Primary [...] vailable SYMONE, DR LOPEZ Primary Care Unavailable BROWN, VANDANA Consulting Unavailable LAKSHMIPATHY ., NICOLE Consulting Amy vailable JOHN ASHBY Primary Care Physician Cesia Artis Unavailable Unavailable John Ashby MD Primary Care Provider Kate Scruggs Unavailable Unavailable Brown, Jordan A [...] Unavailable Brown, DO Jordan A Referring Unavailable BROWN, JORDAN A Attending [...] Attending Unavailable BROWN, JORDAN A Referring Unavailable John Ashby DO Primary Care Provider [phone] Ethan Padilla DO Attending Provider John Ashby Primary Care Unavailable Ethan Padilla Attending Unavailable Ethan Padilla Admitting Unavailable Brown, Jordan A Referring Unavailable Brown, Jordan A Attending Unavailable Brown, Jordan A Admitting Unavailable Brown, Jordan A Admitting Unavailable Brown, Jordan A Referring Unavailable Brown, Jordan A Attending Unavailable Giedraitis , Andwhitley Borden Attending Unavailable Giedraitis , Andrius Vbryan Attending Unavailable Giedraitis , Andrius Vbryan Attending Unavailable CAROLINA ZHONG Attending Unavailable John Ashby DO Primary Care Provider John Ashby DO Attending Provider [phone] Allergies Allergy Classification Reported Allergen(s) Allergy Type Date of Onset Reaction(s) Facility (1 source) 30737,00; Translations: [Unknown] Propensity to adverse reactions (disorder) 2 [facility] Repository (20 sources) Cephalexin; Translations: [CEPHALEXIN] Drug Allergy 8 GI intolerance [facility] Work Phone: (7 sources) patient allergy list reviewed by nurse or physicia Propensity to adverse reactions 4 Comment:Done [facility] Other (1 source) Cephalexin Drug Allergy 5 [facility] Repository Medications Current Medications Medication [...] hours as needed September 25, 2024 12:00am Complies with drug therapy Start: 05-08-2024 End: 05-15-2024 take 1-2 tablets by mouth every four hours HYDROcodone-acetaminophen ([place]) 5-325 MG tablet Indications: Status post shoulder [...] 03/19/24 Status: Ordered Start: 06-30-2023 HYDROcodone-ac etaminophen ([place]) 5-325 MG tablet 06/30/2023 Active Start: 06-30-2023 take 1 tablet by anne th three times daily as needed HYDROcodone-acetaminophen ([place]) 5-325 MG tablet TAKE 1 TABLET BY MOUTH 3 TIMES A DAY NEEDED FOR PAIN*MUS LAST 30 DAYS 06/30/2023 Active acetaminophen 325 mg / oxyCODONE hydrochloride 5 mg oral tablet (20 sources) Opioid Agonist Start: 04-27-2024 Percocet 5 mg- 325 mg oral tablet See Instructions, 40 tab(s), Refill(s) 0, 1-2 tab(s) Oral q4hr, [facility]/pharmacy #[id number], 165, cm, 03/19/24 13:53:00 EDT, Height/Length Dosing, 65, kg, 03/19/24 13:53:00 EDT, Weight Dosing Start Date: 04/27/24 Status: Ordered Start: 04-06-2023 Percocet 5 mg- 325 mg oral tablet See Instructions, 40 tab(s), Refill(s) 0, 1-2 tab(s) Oral q4hr, [facility]/pharmacy #[id number], 160, cm, 03/25/23 6:16:00 [...] 6 HOURS 09/18/2024 Discontinued 24 hr buPROPion hydrochloride 300 mg extended release oral tablet (20 sources) Aminoketone Start: 12-10-2024 take 1 tablet by mouth once daily Bupropion Hcl 300 mg tablet extended release 24 hr Active 300 MG PO Daily December 10, 2024 8:39am Complies with drug therapy Start: 09-22-2023 End: 12-10-2024 Bupropion Hcl 300 mg tablet extended release 24 hr Discontinued 0 .ROUTE .COMPLEX March 20, 2024 8:35am December 10, 2024 8:40am TAKE 1 TABLET DAILY IN THE MORNING [...] pain, # 60 cap(s), Refills(s) 0, Pharmacy: [facility]/pharmacy #[id number], 165, cm, 03/19/24 13:53:00 EDT, Height/Length Dosing, 65, kg, 03/19/24 13:53:00 EDT, Weight Dosing Start Date: 04/27/24 Status: Ordered Start: 04-06-2023 take 1 capsule by mo [facility] twice daily as needed for pain CeleBREX 100 mg Cap 100 mg = 1 cap(s), Oral, BID, PRN for pain, # 60 cap(s), Refills(s) 0, Pharmacy: [facility]/pharmacy #[id number], 160, cm, 03/25/23 6:16:00 EDT, Height/Length Dosing, 73.5, kg, 03/25/23 6:16:00 EDT, Weight Dosing Start Date: 04/06/23 Status: Ordered cephalexin 500 mg oral capsule (1 source) Cephalosporin Antibacterial Start: 04-06-2023 End: 04-13-2023 take 1 capsule by mouth every eight hours Keflex 500 mg Cap 500 mg = 1 cap(s), Oral, q8hr, X 7 day(s), # 21 cap(s), Refills(s) 0, Pharmacy: [facility]/pharmacy #[id number], 160, cm, 03/25/23 6:16:00 EDT, Height/Length Dosing, 73.5, kg, 03/25/23 6:16:00 EDT, Weight Dosing Start Date: 04/06/23 Stop Date: 04/13/23 Status: Ordered citalopram 10 mg oral tablet (20 sources) Serotonin Reuptake Inhibitor Start: 12-10-2024 take 1 tablet by mouth once daily Citalopram 10 mg tablet Active 10 MG PO Daily 90 90 December 105 8:39am Complies with drug therapy Start: 07-24-2024 Citalopram 10 mg tablet Active 0 .ROUTE .COMPLEX July 24, 2024 8:42am TAKE 1 TABLET DAILY Start: 07-24-2024 Citalopram 10 mg tablet Active 0 .ROUTE .COMPLEX July 24, 2024 7:42am TAKE 1 TABLET DAILY Start: 01-26-2024 End: 12-10-2024 Citalopram 10 mg tablet Disc ontinued 0 .ROUTE .COMPLEX July 24, 2024 8:42am December 10, 2024 8:40am TAKE 1 TABLET DAILY Start: 01-26-2024 End: 07-24-2024 Citalopram 10 mg tablet Disc ontinued 0 .ROUTE .[facility] January 26, 2024 8:54am July 24, 2024 8:42am TAKE 1 TABLET DAILY Start: 01-26-2024 End: 07-24-2024 Citalopram 10 mg tablet Disc ontinued 0 .ROUTE .[facility] January 26, 2024 7:54am July 24, 2024 7:42am TAKE 1 TABLET DAILY Start: 01-26-2024 Citalopram Act hal 0 .ROUTE .[facility] January 26, 2024 8:54am TAKE 1 TABLET [...] Start: 04-27-2024 take 1 capsule by mo [facility] twice daily as needed for constipation Colace 100 mg Cap 100 mg = 1 cap(s), Oral, BID, PRN for constipation, # 20 cap(s), Refills(s) 0, Pharmacy: [facility]/pharmacy #[id number], 165, cm, 03/19/24 13:53:00 EDT, Height/Length Dosing, 65, kg, 03/19/24 13:53:00 EDT, Weight Dosing Start Date: 04/27/24 Status: Ordered Start: 04-06-2023 take 1 capsule by [facility] twice daily as needed for constipation Colace 100 mg Cap 100 mg = 1 cap(s), Oral, BID, PRN for constipation, # 20 cap(s), Refills(s) 0, [id number] 160, cm, 03/25/23 6:16:00 EDT, Height/Length Dosing, 73.5, kg, 03/25/23 6:16:00 EDT, Weight Dosing Start Date: 04/06/23 Status: Ordered leflunomide 10 mg oral tablet (20 sources) Antirheumatic Agent Start: 06-30-2018 End: 09-27-2023 take 1 tablet by mouth once daily Leflunomide (Arava) 10 mg tablet Active 10 MG PO Daily September 27, 2023 12:00am Complies with drug therapy lidocaine 0.05 mg/mg medicated patch (8 sources) [...] MG PO Daily September 27, 2023 12:00am Complies with drug therapy Start: 04-06-2023 End: 04-06-2023 metoprolol 100 mg [...] capsule (20 sources) Proton Pump Inhibitor Start: 06-04-2024 Omeprazole 40 mg capsule,delayed release(DR/EC) Active 0 .ROUTE .COMPLEX June 04, 2024 8:00am TAKE 1 CAPSULE ONCE DAILY ON AN EMPTY STOMACH FOLLOWED IN 30 MINUTES BY BREAKFAST Complies with drug therapy Start: 09-27-2023 End: 06-04-2024 take 1 capsule by mouth once daily Omeprazole 40 mg capsule,delayed release(DR/EC) Discontinued 40 MG PO Daily September 27, 2023 12:00am June 04, 2024 8:00am Omeprazole 40 mg capsule,del ayed release(DR/EC) (4 [...] BREAKFAST ondansetron 4 mg disintegrating oral tablet (7 sources) Serotonin-3 Receptor Antagonist Start: 04-13-2024 take 1 tablet by mouth every eight hours as needed for nausea and vomiting Ondansetron 4 mg tablet,disintegrating Active 4 MG PO Every 8 hours as needed for nausea and vomiting April 13, 2024 12:00am Complies with drug therapy pregabalin 150 mg oral capsule (20 sources) [...] Four times daily September 25, 2024 10:36am Complies with drug therapy Start: 09-27-2023 End: 09-25-2024 take 1 capsule [...] 2023 2:54pm take 1 capsule by mo [facility] every six hours tiZANidine HCl 4 MG 1 tablet as needed Oral every 6 hours for 30 Active 24 hr upadacitinib 15 mg extended release oral tablet (20 sources) Start: 03-24-2023 take 1 tablet by mouth once daily Upadacitinib 15 mg tablet extended release 24 hr Active 15 MG PO Daily September 27, 2023 12:00am Complies with drug therapy Completed/Discontinued Medications Medication Drug Class(es) Dates Sig (Normalized) Sig (Original) alendronic acid 70 mg oral tablet (13 sources) Bisphosphonate Start: 06-30-2018 End: 09-27-2023 take [...] Not-Taking/PRN Start: 04-21-2018 [facility] Calcium 600 MG 1 tablet with meals Orally Twice a day Apr, Not-Taking 24 hr dilTIAZem hydrochloride 360 mg extended release oral tablet (13 sources) Calcium Channel Lisandra Start: 06-30-2018 End: [...] 06-28-2023 take 1 capsule by mo [facility] every twelve hours Doxycycline Hyclate 100 MG 1 capsule Orally Twice a day for 5 days Jun, Active Start: 07-06-2018 End: 09-27-2023 take 1 tablet by mouth twice daily Doxycycline Hyclate 100 mg tablet Discontinued 100 MG PO Twice daily 10 July 06, 2018 1:00am September 27, 2023 2:50pm ibuprofen 800 mg oral tablet (13 sources) Nonsteroidal Anti-inflammatory Drug Start: 07-06-2018 End: [...] mouth in the morning. 01/21/2023 07/17/2024 Discontinued phentermine hydrochloride 37.5 mg oral capsule (20 [...] day for 30 days Jul, Active Semaglutide (2 sources) Start: 10-23-2024 End: 10-23-2024 inject 2 [...] 17, 2024 12:00am October 23, 2024 8:46am Semaglutide 2 mg/dose (8 mg/3 mL) pen [...] 11:00pm traZODone hydrochloride 100 mg oral tablet (13 sources) Serotonin Reuptake Inhibitor Start: 06-30-2018 End: [...] 2023 3:15pm take 2 tablets by mo uth every [...] (congestive) heart failure] Onset: 09-05-2018 09-27-2023 Chronic Comment on above: LHC: normal - 2011, Echo: LVEF 61%, normal RV size/function, RVSP 03/2024,Echo: LVEF 55%, normal RV size/function, RVSP 11/2024 Deficiency and other anemia (20 sources) Anemia; Translations: [Anemia, unspecified] 09-27-2023 Episodic Deficiency and other anemia (5 sources) Anemia, unspecified; Translations: [Anemia, unspecified] Onset: 09-17-2022 Episodic Deficiency and other anemia (7 sources) Pernicious anemia; Translations: [Vitamin B12 deficiency anemia due to intrinsic factor deficiency] 04-16-2024 Episodic Deficiency and other anemia (7 sources) Vitamin B12 deficiency anemia due to intrinsic factor deficiency; Translations: [Pernicious anemia] 04-17-2024 Episodic Disorders of lipid metabolism (7 sources) Hypercholesterolemia; Translations: [Pure hypercholesterolemia, unspecified] Onset: 11-04-2023 08-29-2024 Chronic Essential hypertension (20 sources) Essential hypertension; Translations: [Essential (primary) hypertension] Chronic Fluid and electrolyte disorders (4 sources) Dehydration; Translations: [Dehydration] Episodic Hypertension with complications and secondary hypertension (7 sources) Hypertensive renal disease; Translations: [Hypertensive chronic [...] monitoring] Episodic Other aftercare (3 sources) 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; Translations: [Long-term (current) use of other medications] Onset: 09-17-2022 04-17-2024 Episodic Other aftercare (8 sources) Therapeutic drug level - finding; Translations: [Encounter for therapeutic drug level monitoring] Episodic Other aftercare (2 sources) Encounter for therapeutic drug level monitoring; Translations: [Encounter for therapeutic drug level monitoring] Episodic Other aftercare (6 sources) Drug therapy finding; Translations: [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] 04-17-2024 Episodic Other aftercare (1 source) Taking high risk medication; Translations: [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] 04-17-2024 Episodic Other circulatory [...] traumatic] 10-18-2024 Episodic Other connective tissue disease (2 sources) Tear of left rotator cuff; Translations: [Unspecified [...] Onset: 02-16-2022 Episodic Other non-traumatic joint disorders (4 sources) Pain in left shoulder; Translations: [Left [...] conditions (not mental disorders or infectious disease) (17 sources) Encounter for screening mammogram for malignant neoplasm of breast; Translations: [Patient encounter status] Onset: 2022 Episodic Mae-; endo-; and myocarditis; cardiomyopathy (except that caused by tuberculosis or sexually transmitted disease) (20 sources) Cardiomyopathy associated with another disorder; Translations: [Other cardiomyopathies] Onset: 09-05-2018 02-28-2024 Chronic Comment on above: Echo: LVEF 61%, norm al RV size/function, RVSP 03/2024 LHC: normal - 2011, Echo: LVEF 61%, normal RV size/function, RVSP 03/2024,Echo: LVEF 55%, normal RV size/function, RVSP 11/2024 Mae-; endo-; and myocarditis; cardiomyopathy (except that [...] Value Interpretation Reference Range Facility Office Visiton 12-10-2024 Follow-up visit [id number] Alba Zaidi 1960 Date Provider Department Center 12/10/2024 CAROLINA VALENTE BEAR [facility] Family History Problem Relation Age of Onset Coronary artery disease Mother Family Status - Relation Status Age at Mother Father Alive Level of Service:81980 [place] OFFICE/OUTPATIENT ESTABLISHED MOD MDM 30 MIN Normal [facility] Orders Onlyon 12-06-2024 Orders Only [id number] Alba Zaidi 1960 Date Provider Department Center 12/06/2024 [id number], HISTORICAL BEAR [facility] Family History Family history unknown: Yes Normal [facility] X-ray reportOrdered By: Amaury Wells on 11-06-2024 Study report [facility] [address] [address] XRay Report Signed Patient: Radha Zaidi MR#: [id number] : 1960 Acct:[id number] Age/Sex: 64 / F ADM Date: 5 Loc: [facility] Room: Type: REG CLI Attending Dr: Ethan Padilla DO Copies to: [...] Wells M.D. 11/06/2024 9:08 PM Dictation Location: [place] [address] Transcribed By: [facility] 11/06/242107 Dictated By: Alexi Wells MD 11/06/242105 Signed By: 11/06/242107 [facility] Work Phone: XR shoulder LT min 2V*on XR shoulder LT min 2V* [facility] [address] [address] XRay Report Signed Patient: Radha Zaidi MR#: [id number] : 1960 Acct:[id number] Age/Sex: 64 / F ADM Date: 11/06/24 Loc: [facility] Room: Type: REG CLI Attending Dr: Ethan Padilla DO Copies to: Ethan Padilla DO Ordering Provider: Ethan A Valerie, DO Date of Service: 11/06/24 XR/XR shoulder [...] Wells M.D. 11/06/2024 9:08 PM Dictation Location: [place] [address] Transcribed By: [facility] 11/06/242107 Dictated By: Alexi Wells MD 11/06/242105 Signed By: 11/06/242107 Normal [facility] MRI Shoulder w/o Contrast [facility] 09-30-2024 MRI Shoulder w/o Contrast Left Exam [...] DO Transcribed by: DANISHA Technologist: TED Shah [facility] Basophils Auto (Bld) [#/Vol] on 08-31-2024 Basophils (Bld) [#/Vol] Automated basophil count 0.0-0.1 [facility] Basophils/100 WBC Auto (Bld) on 08-31-2024 Basophils/100 WBC (Bld) Automated basophil % 0.2-2.0 [facility] Cholesterol in LDL Calc [Mas s/Vol]on 08-31-2024 Cholesterol in LDL [Mass/Vol] Cholesterol in LDL [Mass/volume] in Serum or Plasma by calculation [facility] Comment on above: <100 mg/dl [id number] 0-129 mg/dl NEAR OR ABOVE [id number] mg/dl BORDERLINE [id number] mg/dl HIGH>190 mg/dl VERY HIGH Cholesterol in VLDL Calc [Ma ss/Vol]on 08-31-2024 Cholesterol in VLDL [Mass/Vol] Cholesterol in VLDL [Mass/volume] in Serum or Plasma by calculation [facility] Eosinophils/100 WBC Auto (Bl d)on 08-31-2024 Eosinophils/100 WBC (Bld) Automated eosinophil % 0.9-7.0 [facility] Erythrocyte distribution wid th Auto (RBC) [Ratio]on 08-31-2024 Erythrocyte distribution width (RBC) [Ratio] Erythrocyte distribution width [Ratio] by Automated count High 11.0-15.0 [facility] Estimated glomerular filtrat ion rate (GFR) non- Americanon 08-31-2024 GFR/1.73 sq M.predicted among non-blacks MDRD (S/P/Bld) [Vol rate/Area] Estimated glomerular filtration rate (GFR) non- Low >=60 mL/min/1.73 m 2 [facility] Globulin Calc (S) [Mass/Vol] on 08-31-2024 Globulin (S) [Mass/Vol] Serum globulin measurement by calculation (mass/volume) [facility] Hematocrit Auto (Bld) [Volum e fraction]on 08-31-2024 Hematocrit (Bld) [Volume fraction] Hematocrit [Volume Fraction] of Blood by Automated count Low 36.0-48.0 [facility] Hemoglobin [Mass/volume] in Bloodon 08-31-2024 Hemoglobin (Bld) [Mass/Vol] Hemoglobin [Mass/volume] in Blood Low 12.0-16.0 [facility] Laboratory - Chemistry and C hemistry - challengeon 08-31-2024 Albumin [Mass/Vol] 3.8 g/dL 3.4-5.0 [facility] ALP [Catalytic activity/Vol] 60 U/L 46-116 [facility] ALT [Catalytic activity/Vol] 15 U/L 14-59 [facility] AST [Catalytic activity/Vol] 9 U/L Low 15-37 [facility] Bilirubin [Mass/Vol] 0.5 mg/dL 0.2-1.0 [facility] Calcium [Mass/Vol] 9.2 mg/dL 8.5-10.1 [facility] Chloride [Moles/Vol] 107 mmol/L 98-107 [facility] Cholesterol [Mass/Vol] 196 mg/dL <=200 [facility] Cholesterol in HDL [Mass/Vol] 68 mg/dL High 40-60 [facility] Comment on above: > or =60 mg/dl - LOW CARDIOVASCULAR RISK<40 mg/dl - HIGH CARDIOVASCULAR RISK CO2 [Moles/Vol] 26.9 mmol/L 21.0-32.0 [facility] Creatinine [Mass/Vol] 1.29 mg/dL High 0.55-1.02 [facility] GFR/1.73 sq M.predicted MDRD (S/P/Bld) [Vol rate/Area] 50 mL/min/{1.73_m2} Low >=60 mL/min/1.73 m 2 [facility] Glucose [Mass/Vol] 72 mg/dL Low 74-106 [facility] Potassium [Moles/Vol] 4.3 mmol/L 3.5-5.1 [facility] Protein [Mass/Vol] 7.0 g/dL 6.4-8.2 [facility] Sodium [Moles/Vol] 143 mmol/L 136-145 [facility] Triglyceride [Mass/Vol] 66 mg/dL <=150 [facility] TSH Qn 1.339 m[IU]/L 0.358-3.740 [facility] Urea nitrogen [Mass/Vol] 20.0 mg/dL High 7.0-18.0 [facility] Urea nitrogen/Creatinine [Mass ratio] 15.5 mg/mg [facility] Laboratory - Hematology and Cell countson 08-31-2024 Immature granulocytes/100 WBC (Bld) 0.4 % 0.0-0.5 [facility] Leukocytes [#/volume] correc fito for nucleated erythrocytes in Blood by Automated counon 08-31-2024 WBC corrected for nucl RBC Auto (Bld) [#/Vol] Leukocytes [#/volume] corrected for nucleated erythrocytes in Blood by Automated coun 4.0-11.0 [facility] Lymphocytes Auto (Bld) [#/Vo l]on 08-31-2024 Lymphocytes (Bld) [#/Vol] Lymphocytes [#/volume] in Blood by Automated count 1.2-3.8 [facility] Lymphocytes/100 WBC Auto (Bl d)on 08-31-2024 Lymphocytes/100 WBC (Bld) Lymphocytes/100 leukocytes in Blood by Automated count 20.5-60.0 [facility] MCH Auto (RBC) [Entitic mass ]on 08-31-2024 MCH (RBC) [Entitic mass] MCH [Entitic mass] by Automated count 26.7-34.0 [facility] MCHC Auto (RBC) [Mass/Vol]on 08-31-2024 MCHC (RBC) [Mass/Vol] MCHC [Mass/volume] by Automated count 29.9-35.2 [facility] MCV Auto (RBC) [Entitic vol] on 08-31-2024 MCV (RBC) [Entitic vol] MCV [Entitic volume] by Automated count High 81.0-99.0 [facility] Microalbumin [Mass/volume] i n Urineon 08-31-2024 Albumin DL <= 20 mg/L (U) [Mass/Vol] Microalbumin [Mass/volume] in Urine <=30.0 [facility] Monocytes Auto (Bld) [#/Vol] on 08-31-2024 Monocytes (Bld) [#/Vol] Automated blood monocyte count 0.3-0.8 [facility] Monocytes/100 WBC Auto (Bld) on 08-31-2024 Monocytes/100 WBC (Bld) Automated monocyte % 1.7-12.0 [facility] Neutrophils Auto (Bld) [#/Vo l]on 08-31-2024 Neutrophils (Bld) [#/Vol] Neutrophils [#/volume] in Blood by Automated count 1.4-6.5 [facility] Neutrophils/100 WBC Auto (Bl d)on 08-31-2024 Neutrophils/100 WBC (Bld) Automated neutrophil % 43.0-75.0 [facility] No Panel Informationon 08-31 Eosinophils # (Auto) 0.2 10 3/uL 0.0-0.7 [facility] Immature Granulocyte # (Auto) 0.02 10 3/uL 0.00-0.03 [facility] Urine Random Creatinine 176.19 mg/dL 20.00-300.0 0 [facility] Platelet mean volume Auto (B ld) [Entitic vol]on 08-31-2024 Platelet mean volume (Bld) [Entitic vol] Platelet mean volume [Entitic volume] in Blood by Automated count Low 9.5-13.5 [facility] Platelets Auto (Bld) [#/Vol] on 08-31-2024 Platelets (Bld) [#/Vol] Platelets [#/volume] in Blood by Automated count 150-450 [facility] RBC Auto (Bld) [#/Vol]on RBC (Bld) [#/Vol] Erythrocytes [#/volu me] in Blood by Automated count Low 4.20-5.40 [facility] Serum or plasma albumin/glob ulin mass ratioon 08-31-2024 Albumin/Globulin [Mass ratio] Serum or plasma albumin/globulin mass ratio [facility] Serum or plasma anion gap de terminationon 08-31-2024 Anion gap [Moles/Vol] Serum or plasma anion gap determination [facility] Serum or plasma total choles terol/high density lipoprotein (HDL) cholesterol mass albnia 08-31-2024 Cholesterol.total/C holesterol in HDL [Mass ratio] Serum or plasma total cholesterol/high density lipoprotein (HDL) cholesterol mass rat [facility] Comment on above: 3.3 - 4.4 LOW RISK4. 4 - 7.1 AVERAGE RISK7.1 - 11.0 MODERATE RISK>11.0 HIGH RISK Urine microalbumin/creatinin e mass ratioon 08-31-2024 Albumin/Creatinine DL <= 20 mg/L (U) [Mass ratio] Urine microalbumin/creatinine mass ratio 0.0-29.9 [facility] Comment on above: NO MICROALBUMINURIA 0-29 MG/GCLINICAL MICROALBUMINURIA 30-300 MG/GMACROALBUMINURIA >300 MG/G Basophils Auto (Bld) [#/Vol] on 06-21-2024 Basophils (Bld) [#/Vol] Automated basophil count 0.0-0.1 [facility] Basophils/100 WBC Auto (Bld) on 06-21-2024 Basophils/100 WBC (Bld) Automated basophil % 0.2-2.0 [facility] Eosinophils/100 WBC Auto (Bl d)on 06-21-2024 Eosinophils/100 WBC (Bld) Automated eosinophil % 0.9-7.0 [facility] Erythrocyte distribution wid th Auto (RBC) [Ratio]on 06-21-2024 Erythrocyte distribution width (RBC) [Ratio] Erythrocyte distribution width [Ratio] by Automated count 11.0-15.0 [facility] Estimated glomerular filtrat ion rate (GFR) non- Americanon 06-21-2024 GFR/1.73 sq M.predicted among non-blacks MDRD (S/P/Bld) [Vol rate/Area] Estimated glomerular filtration rate (GFR) non- Low >=60 mL/min/1.73 m 2 [facility] Globulin Calc (S) [Mass/Vol] on 06-21-2024 Globulin (S) [Mass/Vol] Serum globulin measurement by calculation (mass/volume) [facility] Hematocrit Auto (Bld) [Volum e fraction]on 06-21-2024 Hematocrit (Bld) [Volume fraction] Hematocrit [Volume Fraction] of Blood by Automated count Low 36.0-48.0 [facility] Hemoglobin [Mass/volume] in Bloodon 06-21-2024 Hemoglobin (Bld) [Mass/Vol] Hemoglobin [Mass/volume] in Blood Low 12.0-16.0 [facility] Laboratory - Chemistry and C hemistry - challengeon 06-21-2024 Albumin [Mass/Vol] 3.8 g/dL 3.4-5.0 [facility] ALP [Catalytic activity/Vol] 48 U/L 46-116 [facility] ALT [Catalytic activity/Vol] 13 U/L Low 14-59 [facility] AST [Catalytic activity/Vol] 14 U/L Low 15-37 [facility] Bilirubin [Mass/Vol] 0.5 mg/dL 0.2-1.0 [facility] Calcium [Mass/Vol] 9.1 mg/dL 8.5-10.1 [facility] Chloride [Moles/Vol] 105 mmol/L 98-107 [facility] CO2 [Moles/Vol] 26.1 mmol/L 21.0-32.0 [facility] Creatinine [Mass/Vol] 1.43 mg/dL High 0.55-1.02 [facility] GFR/1.73 sq M.predicted MDRD (S/P/Bld) [Vol rate/Area] 45 mL/min/{1.73_m2} Low >=60 mL/min/1.73 m 2 [facility] Glucose [Mass/Vol] 76 mg/dL 74-106 [facility] Potassium [Moles/Vol] 3.4 mmol/L Low 3.5-5.1 [facility] Protein [Mass/Vol] 6.7 g/dL 6.4-8.2 [facility] Sodium [Moles/Vol] 144 mmol/L 136-145 [facility] Urea nitrogen [Mass/Vol] 18.0 mg/dL 7.0-18.0 [facility] Urea nitrogen/Creatinine [Mass ratio] 12.6 mg/mg [facility] Laboratory - Hematology and Cell countson 06-21-2024 ESR (Bld) [Velocity] 6 mm/h <=30 [facility] Immature granulocytes/100 WBC (Bld) 0.3 % 0.0-0.5 [facility] Leukocytes [#/volume] correc fito for nucleated erythrocytes in Blood by Automated counon 06-21-2024 WBC corrected for nucl RBC Auto (Bld) [#/Vol] Leukocytes [#/volume] corrected for nucleated erythrocytes in Blood by Automated coun Low 4.0-11.0 [facility] Lymphocytes Auto (Bld) [#/Vo l]on 06-21-2024 Lymphocytes (Bld) [#/Vol] Lymphocytes [#/volume] in Blood by Automated count 1.2-3.8 [facility] Lymphocytes/100 WBC Auto (Bl d)on 06-21-2024 Lymphocytes/100 WBC (Bld) Lymphocytes/100 leukocytes in Blood by Automated count 20.5-60.0 [facility] MCH Auto (RBC) [Entitic mass ]on 06-21-2024 MCH (RBC) [Entitic mass] MCH [Entitic mass] by Automated count 26.7-34.0 [facility] MCHC Auto (RBC) [Mass/Vol]on 06-21-2024 MCHC (RBC) [Mass/Vol] MCHC [Mass/volume] by Automated count 29.9-35.2 [facility] MCV Auto (RBC) [Entitic vol] on 06-21-2024 MCV (RBC) [Entitic vol] MCV [Entitic volume] by Automated count 81.0-99.0 [facility] Monocytes Auto (Bld) [#/Vol] on 06-21-2024 Monocytes (Bld) [#/Vol] Automated blood monocyte count 0.3-0.8 [facility] Monocytes/100 WBC Auto (Bld) on 06-21-2024 Monocytes/100 WBC (Bld) Automated monocyte % 1.7-12.0 [facility] Neutrophils Auto (Bld) [#/Vo l]on 06-21-2024 Neutrophils (Bld) [#/Vol] Neutrophils [#/volume] in Blood by Automated count 1.4-6.5 [facility] Neutrophils/100 WBC Auto (Bl d)on 06-21-2024 Neutrophils/100 WBC (Bld) Automated neutrophil % Low 43.0-75.0 [facility] No Panel Informationon 06-21 Eosinophils # (Auto) 0.1 10 3/uL 0.0-0.7 [facility] Immature Granulocyte # (Auto) 0.01 10 3/uL 0.00-0.03 [facility] Platelet mean volume Auto (B ld) [Entitic vol]on 06-21-2024 Platelet mean volume (Bld) [Entitic vol] Platelet mean volume [Entitic volume] in Blood by Automated count Low 9.5-13.5 [facility] Platelets Auto (Bld) [#/Vol] on 06-21-2024 Platelets (Bld) [#/Vol] Platelets [#/volume] in Blood by Automated count 150-450 [facility] RBC Auto (Bld) [#/Vol]on RBC (Bld) [#/Vol] Erythrocytes [#/volu me] in Blood by Automated count Low 4.20-5.40 [facility] Serum or plasma albumin/glob ulin mass ratioon 06-21-2024 Albumin/Globulin [Mass ratio] Serum or plasma albumin/globulin mass ratio [facility] Serum or plasma anion gap de terminationon 06-21-2024 Anion gap [Moles/Vol] Serum or plasma anion gap determination [facility] No Panel Informationon 06-05 Kate Scruggs, ARR T 06/09/2024 1:08 PM L Inj/Asp: L glenohumeral on 06/05/2024 2:26 PM Indications: pain Details: 25 G needle, ultrasound-guided Medications: 2 mL betamethasone acetate-betamethasone sodium phosphate 6 (3-3) MG/ML Consent was given by the patient. [facility] XR Shoulder - left 2 Viewson 05-09-2024 Imaging Result: 3 views left shoulder, Grashey/Zanca/outlet, taken today and saved to the permanent medical record are reviewed. No fractures. ACI WNL [facility] XR Shoulder - left 2 Viewson 05-08-2024 Radiology Study observation (narrative) [facility] Main OR Intraoperative Recor don 04-30-2024 Main OR Intraoperative Record Main OR Intraoperative Record Normal [facility] CBC w/ Auto Diffon Basophils/100 WBC (Bld) 1.3 % Normal 0.0-2.0 [facility] Comment on above: Performed By: #### 2 [id number] ####[facility] [address] [place] [address] Basophils/Leukocyte s Auto (Bld) [Pure # fraction] 0.1 E9/L Normal 0.0-0.2 [facility] Comment on above: Performed By: #### 2 079133 ####[facility] [address] [place] [address] Eosinophils (Bld) [#/Vol] 0.2 E9/L Normal 0.0-0.5 [facility] Comment on above: Performed By: #### 2 868363 ####[facility] [address] [place] [address] Eosinophils/100 WBC (Bld) 3.7 % Normal 0.0-8.0 [facility] Comment on above: Performed By: #### 2 475389 ####[facility] [address] [place] [address] Erythrocyte distribution width (RBC) [Ratio] 15.3 % High 10.9-14.2 [facility] Comment on above: Performed By: #### 2 185122 ####[place] [place] [address] Hematocrit (Bld) [Volume fraction] 27.7 % Low 34.0-46.0 [facility] Comment on above: Performed By: #### 2 607407 ####[address] [address] Hemoglobin (Bld) [Mass/Vol] 9.6 g/dL Low 12.0-16.0 [facility] Comment on above: Performed By: #### 2 808647 ####[address] [address] Lymphocytes (Bld) [#/Vol] 0.9 E9/L Low 1.0-4.0 [facility] Comment on above: Performed By: #### 2 809270 ####[address] [address] Lymphocytes/100 WBC (Bld) 20.4 % Normal 14.0-50.0 [facility] Comment on above: Performed By: #### 2 812228 ####[address] [address] MCH (RBC) [Entitic mass] 33.7 pg Normal 27.0-34.0 [facility] Comment on above: Performed By: #### 2 118352 ####[address] [address] MCHC (RBC) [Mass/Vol] 34.6 g/dL Normal 31.4-36.0 [facility] Comment on above: Performed By: #### 2 135665 ####[address] [address] MCV (RBC) [Entitic vol] 97.3 fL Normal 80.0-100.0 [facility] Comment on above: Performed By: #### 2 952893 ####[address] [address] Monocytes (Bld) [#/Vol] 0.8 E9/L Normal 0.2-1.0 [facility] Comment on above: Performed By: #### 2 107996 ####[address] [place] [address] Neutrophils (Bld) [#/Vol] 2.4 E9/L Normal 2.0-7.5 [facility] Comment on above: Performed By: #### 2 961405 ####[address] [address] Neutrophils/100 WBC (Bld) 55.1 % Normal 36.0-75.0 [facility] Comment on above: Performed By: #### 2 297423 ####[facility] [address] [place] [address] Platelet 213.0 E9/L Normal 150.0-500.0 [facility] Comment on above: Performed By: #### 2 665624 ####[address] [address] Platelet mean volume (Bld) [Entitic vol] 7.0 fL Normal 6.4-10.8 [facility] Comment on above: Performed By: #### 2 963582 ####[address] [address] RBC (Bld) [#/Vol] 2.9 E12/L Low 4.3-5.9 [facility] Comment on above: Performed By: #### 2 087635 ####[address] [address] WBC corrected for nucl RBC Auto (Bld) [#/Vol] 4.3 E9/L Normal 4.0-11.0 [facility] Comment on above: Result Comment: Mae pheral smear review performed. Performed By: #### 2 918142 ####[address] [address] Discharge Instructionson Discharge Instructions Discharge Instructions RADHA [...] appointment Appointment has already been scheduled Where: [address] [place] [address] [place] [address]- [employer] (1) Medications What How Much When Instructions Next Dose New acetaminophen-oxycodone (Percocet 5 mg-325 mg oral tablet) See instructions 1-2 tab(s) Oral q4hr Pickup at [facility]/pharmacy #[id number] New celecoxib (CeleBREX 100 mg Cap) 1 Capsules By Mouth 2 times a day as needed for for pain Pickup at [facility]/pharmacy #6177 New docusate (Colace 100 mg Cap) 1 Capsules By Mouth 2 times a day as needed for for constipation Pickup at [facility]/pharmacy #6177 Unchanged buPROPion (Wellbutrin XL [...] Tablets By Mouth Every day Pharmacy Information [facility]/pharmacy #[id number]: [address] [place], [place] [id number] [phone] What How Much When Comments Stop Taking acetaminophen-hydrocodone (acetaminophen-hydrocodone 325 mg-5 mg oral tablet) 1 Tablets By Mouth Every 6 hours [employer] [place], [place] [facility] AFTER YOUR SHOULDER ARTHROSCOPY [...] band-aids t (more content not included)... Normal [facility] [...] 04-27-2024 Inpatient Patient Summary Inpatient Patient Summary [address] [address] [facility] Clinical Discharge Instructions PERSON INFORMATION Name: RADHA ZAIDI PHYSICIANS Admitting Physician: Jordan Yuan DO Attending Physician: Jordan Yuan DO PCP: JOHN ASHBY DO Discharge Diagnosis: Comment: PATIENT EDUCATION INFORMATION Instructions: Iris Yuan - After Your Shoulder Arthroscopy (Custom) Medication Leaflets: Follow up: MEDICATION LIST New Medications [facility]/pharmacy #[id number], [address] [place], [place] [id number], [phone] acetaminophen-oxycodone (Percocet 5 mg-325 mg oral tablet) [...] Tablets By Mouth every 6 hours. Comment: Alyssa [facility] Main OR PACU I Recordon 04-10 Main OR PACU I Record Main OR PACU I Record PACU Phase I Document Type FT Summary Primary Physician: Jordan Yuan DO Finalized Date/Time: 04/27/24 11:12:00 Pt. Name: RADHA ZAIDI/Sex: 1960 Female Med Rec #: [id number] Physician: Jordan Yuan DO Financial #: [id number] Pt. Type: A Room/Bed: [place] [address] Admit/Disch: 04/27/24 05:21:12 - Institution: Case Times [...] By: Ling Kathleen RN 04/27/24 11:12 Normal [facility] Main OR Preoperative Recordo n 04-27-2024 Main OR Preoperative Record Main OR Preoperative Record PreOp Document Type FT Summary Primary Physician: Jordan Yuan DO Finalized Date/Time: 04/27/24 09:02:45 Pt. Name: RADHA ZAIDI/Sex: 1960 Female Med Rec #: [id number] Physician: Jordan Yuan DO Financial #: [id number] Pt. Type: A Room/Bed: [facility] Admit/Disch: 04/27/24 05:21:12 - Institution: Case Times [...] By: Carli Gomez RN 04/27/24 09:02 Normal [facility] Operative Reporton Operative Report Operative Report Patient: RADHA ZAIDI Age: 63 years Sex: Female : 1960 Associated Diagnoses: None Author: Jordan Yuan DO DATE OF SURGERY: 04/27/2024 SURGEON: Jordan Yuan D.O. MILLWRIGHT APPRENTICE: Jeff Marshall PREOPERATIVE DIAGNOSIS: Rotator cuff tear, [...] fashion. The forearm was secured in the [employer] pneumatic arm munoz. Landmarks were demarcated. The [...] the greater tuberosity was cleared with the Offerman wand to improve visualization. An accessory anterosuperolateral portal was made with outside in technique using spinal needle localization. A passport cannula was placed. Soft tissue was cleared from the lesser tuberosity with the Offerman wand. A bony bleeding bed was created with the arthroscopic bur on the reverse setting. The punch was placed to the anterior portal and used to create a socket for the corkscrew anchor at the upper portion of the lesser tuberosity. The anchor was inserted. The sutures were passed using th (more content not included)... Normal [facility] Comment on above: Result Comment: Elec tronically Signed By: Jordan Yuan DO\.br\Date and Time Signed: 04/27/24 15:13 EDT Outpatient Surgery Discharge Instructionon 04-27-2024 Outpatient Surgery Discharge Instruction Outpatient Surgery Discharge Instruction [place] [id number] Patient Discharge Instructions PERSON INFORMATION Name: DYAN RADHA Lockett Date of : 1960 Current Date: 04/27/2024 [...] to serve you. Thank you for choosing [facility] HERE ARE THE MEDICATION CHANGES THAT OCCURRED DURING YOUR HOSPITAL STAY New Medications [id number], [address], [place] [id number], [phone] acetaminophen-oxycodone (Percocet 5 mg-325 mg oral tablet) [...] every 6 hours. PATIENT EDUCATION INFORMATION Instructions: [place], [place] [facility] AFTER YOUR SHOULDER ARTHROSCOPY [...] follow up (more content not included)... Normal [facility] Proceduralon 04-27-2024 Procedural Procedural Patient: RADHA ZAIDI [...] lido; 22g 50mm insulated [facility] 10cc .5% bupiv and 133mg exparel [...] The patient tolerated the procedure as expected. 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 Family History: Primary malignant neoplasm of prostate Father Acute myocardial infarction Mother Procedure history: Total shoulder replacement (54067089) on 04/06/2023 at 62 Years. Cervical laminectomy (8459810960). 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 Removal of lung, Partial (63256). Open reduction and internal fixation of fracture Leg (877489866). Foot surgery (8143735935). Lumbar discectomy (132524006). Social History Social & Psychosocial Habits Alcoh (more content not included)... Normal [facility] Basophils Auto (Bld) [#/Vol] on 03-27-2024 Basophils (Bld) [#/Vol] 0.0 10 3/uL 0.0-0.1 [facility] Basophils/100 WBC Auto (Bld) on 03-27-2024 Basophils/100 WBC (Bld) 0.7 % 0.2-2.0 [facility] Eosinophils/100 WBC Auto (Bl d)on 03-27-2024 Eosinophils/100 WBC (Bld) 2.0 % 0.9-7.0 [facility] Erythrocyte distribution wid th Auto (RBC) [Ratio]on 03-27-2024 Erythrocyte distribution width (RBC) [Ratio] 14.7 % 11.0-15.0 [facility] Hematocrit Auto (Bld) [Volum e fraction]on 03-27-2024 Hematocrit (Bld) [Volume fraction] 30.8 % Low 36.0-48.0 [facility] Hemoglobin [Mass/volume] in Bloodon 03-27-2024 Hemoglobin (Bld) [Mass/Vol] 10.0 g/dL Low 12.0-16.0 [facility] Laboratory - Chemistry and C hemistry - challengeon 03-27-2024 Cobalamin (Vitamin B12) [Mass/Vol] 172 pg/mL Abnormal 232-1245 [facility] Comment on above: Performed at: [address] [id number] Director: Lito Matamoros PhD, Phone: [phone] Laboratory - Hematology and Cell countson 03-27-2024 Immature granulocytes/100 WBC (Bld) 0.5 % 0.0-0.5 [facility] Leukocytes [#/volume] correc fito for nucleated erythrocytes in Blood by Automated counon 03-27-2024 WBC corrected for nucl RBC Auto (Bld) [#/Vol] 4.4 10 3/uL 4.0-11.0 [facility] Lymphocytes Auto (Bld) [#/Vo l]on 03-27-2024 Lymphocytes (Bld) [#/Vol] 1.9 10 3/uL 1.2-3.8 [facility] Lymphocytes/100 WBC Auto (Bl d)on 03-27-2024 Lymphocytes/100 WBC (Bld) 42.3 % 20.5-60.0 [facility] MCH Auto (RBC) [Entitic mass ]on 03-27-2024 MCH (RBC) [Entitic mass] 31.9 pg 26.7-34.0 [facility] MCHC Auto (RBC) [Mass/Vol]on 03-27-2024 MCHC (RBC) [Mass/Vol] 32.5 g/dL 29.9-35.2 [facility] MCV Auto (RBC) [Entitic vol] on 03-27-2024 MCV (RBC) [Entitic vol] 98.4 fL 81.0-99.0 [facility] Monocytes Auto (Bld) [#/Vol] on 03-27-2024 Monocytes (Bld) [#/Vol] 0.6 10 3/uL 0.3-0.8 [facility] Monocytes/100 WBC Auto (Bld) on 03-27-2024 Monocytes/100 WBC (Bld) 12.7 % High 1.7-12.0 [facility] Neutrophils Auto (Bld) [#/Vo l]on 03-27-2024 Neutrophils (Bld) [#/Vol] 1.8 10 3/uL 1.4-6.5 [facility] Neutrophils/100 WBC Auto (Bl d)on 03-27-2024 Neutrophils/100 WBC (Bld) 41.8 % Low 43.0-75.0 [facility] No Panel Informationon 03-27 Eosinophils # (Auto) 0.1 10 3/uL 0.0-0.7 [facility] Folate 14.00 ng/mL 8.60-58.90 [facility] Immature Granulocyte # (Auto) 0.02 10 3/uL 0.00-0.03 [facility] Platelet mean volume Auto (B ld) [Entitic vol]on 03-27-2024 Platelet mean volume (Bld) [Entitic vol] 9.3 fL Low 9.5-13.5 [facility] Platelets Auto (Bld) [#/Vol] on 03-27-2024 Platelets (Bld) [#/Vol] 235 10 3/uL 150-450 [facility] RBC Auto (Bld) [#/Vol]on RBC (Bld) [#/Vol] 3.13 10 6/uL Low 4.20-5.40 [facility] Reticulocytes/100 RBC Auto ( Bld)on 03-27-2024 Reticulocytes/100 RBC (Bld) 2.37 % 0.60-3.10 [facility] Serum or plasma methylmalona te measurement (moles/volume)on 03-27-2024 Methylmalonate [Moles/Vol] 195 nmol/L 0-378 [facility] Comment on above: This test was develo ped and its performance characteristicsdetermined by [employer]. It has not been cleared orapproved by the Food and Drug Administration.Performed at: [address] [id number] Director: Goldy Aparicio MD, Phone: [phone] XR Chest 2 Viewson XR Chest 2 [...] mGy = na DAP = na Normal [facility] BMPon 03-19-2024 Anion gap [Moles/Vol] 9 mmol/L Normal 6-16 [facility] Comment on above: Performed By: #### 2 800083 #### [facility] Laboratory [address] [place] [address] Calcium [Mass/Vol] 9.1 mg/dL Normal 8.9-11.1 [facility] Comment on above: Performed By: #### 2 702806 #### [facility] Laboratory [address] [place] [address] Chloride [Moles/Vol] 109 mmol/L Normal 101-111 [facility] Comment on above: Performed By: #### 2 607189 #### [facility] Laboratory [address] [place] [address] CO2 [Moles/Vol] 27 mmol/L Normal 21-31 [facility] Comment on above: Performed By: #### 2 828506 #### [facility] Laboratory [address] [place] [address] Creatinine [Mass/Vol] 1.1 mg/dL Normal 0.5-1.3 [facility] Comment on above: Performed By: #### 2 252624 #### [facility] Laboratory [address] [place] [address] Glucose [Mass/Vol] 85 mg/dL Normal 55-199 [facility] Comment on above: Performed By: #### 2 926071 #### [facility] Laboratory [address] [place] [address] Potassium [Moles/Vol] 3.8 mmol/L Normal 3.5-5.3 [facility] Comment on above: Performed By: #### 2 902532 #### [facility] Laboratory [address] [place] [address] Sodium [Moles/Vol] 141 mmol/L Normal 135-145 [facility] Comment on above: Performed By: #### 2 264214 #### [facility] Laboratory [address] [place] [address] Urea nitrogen [Mass/Vol] 17 mg/dL Normal 5-21 [facility] Comment on above: Performed By: #### 2 272568 #### [facility] Laboratory [address] [place] [address] Urea nitrogen/Creatinine [Mass ratio] 16 No Units Normal 10-20 [facility] Comment on above: Performed By: #### 2 119439 #### [facility] Laboratory [address] [place] [address] CBC w/ Auto Diffon 4 Basophils/100 WBC (Bld) 0.6 % Normal 0.0-2.0 [facility] Comment on above: Performed By: #### 2 207740 #### [facility] Laboratory [address] [place] [address] Basophils/Leukocyte s Auto (Bld) [Pure # fraction] 0.0 E9/L Normal 0.0-0.2 [facility] Comment on above: Performed By: #### 2 832035 #### [facility] Laboratory [address] [place] [address] Eosinophils (Bld) [#/Vol] 0.1 E9/L Normal 0.0-0.5 [facility] Comment on above: Performed By: #### 2 694743 #### [facility] Laboratory [address] [place] [address] Eosinophils/100 WBC (Bld) 1.6 % Normal 0.0-8.0 [facility] Comment on above: Performed By: #### 2 006849 #### [facility] Laboratory [address] [place] [address] Erythrocyte distribution width (RBC) [Ratio] 14.7 % High 10.9-14.2 [facility] Comment on above: Performed By: #### 2 659425 #### [facility] [address] [place] [address] Hematocrit (Bld) [Volume fraction] 27.9 % Low 34.0-46.0 [facility] Comment on above: Performed By: #### 2 742343 #### [facility] Laboratory [address] [place] [address] Hemoglobin (Bld) [Mass/Vol] 9.8 g/dL Low 12.0-16.0 [facility] Comment on above: Performed By: #### 2 610790 #### [facility] Laboratory [address] [place] [address] Lymphocytes (Bld) [#/Vol] 1.1 E9/L Normal 1.0-4.0 [facility] Comment on above: Performed By: #### 2 145288 #### [facility] Laboratory [address] [place] [address] Lymphocytes/100 WBC (Bld) 28.9 % Normal 14.0-50.0 [facility] Comment on above: Performed By: #### 2 831051 #### [facility] Laboratory [address] [place] [address] MCH (RBC) [Entitic mass] 33.8 pg Normal 27.0-34.0 [facility] Comment on above: Performed By: #### 2 795369 #### [facility] Laboratory [address] [place] [address] MCHC (RBC) [Mass/Vol] 35.1 g/dL Normal 31.4-36.0 [facility] Comment on above: Performed By: #### 2 978478 #### [facility] Laboratory [address] [place] [address] MCV (RBC) [Entitic vol] 96.2 fL Normal 80.0-100.0 [facility] Comment on above: Performed By: #### 2 267809 #### [facility] Laboratory [address] [place] [address] Monocytes (Bld) [#/Vol] 0.6 E9/L Normal 0.2-1.0 [facility] Comment on above: Performed By: #### 2 [id number] #### [facility] [address] [place] [address] Neutrophils (Bld) [#/Vol] 2.0 E9/L Normal 2.0-7.5 [facility] Comment on above: Performed By: #### 2 [id number] #### [facility] [address] [place] [address] Neutrophils/100 WBC (Bld) 52.8 % Normal 36.0-75.0 [facility] Comment on above: Performed By: #### 2 [id number] #### [facility] [address] [place] [address] Platelet 211.0 E9/L Normal 150.0-500.0 [facility] Comment on above: Performed By: #### 2 [id number] #### [facility] [address] [place] [address] Platelet mean volume (Bld) [Entitic vol] 7.0 fL Normal 6.4-10.8 [facility] Comment on above: Performed By: #### 2 [id number] #### [facility] [address] [place] [address] RBC (Bld) [#/Vol] 2.9 E12/L Low 4.3-5.9 [facility] Comment on above: Performed By: #### 2 [id number] #### [facility] [address] [place] [address] WBC corrected for nucl RBC Auto (Bld) [#/Vol] 3.8 E9/L Low 4.0-11.0 [facility] Comment on above: Result Comment: Mae pheral smear review performed. Performed By: #### 2 [id number] #### [facility] [address] [place] [address] CHEMISTRYOrdered By: SYSTEM SYSTEM on 03-19-2024 Anion [...] 03-19-2024 eGFR 56 mL/min/1.73 m2 Low >=59 [facility] Comment on above: Order Comment: Order added by Discern Expert. Performed By: #### 1 [id number] #### [facility] [address] [place] [address] Basophils Auto (Bld) [#/Vol] on 02-14-2024 Basophils (Bld) [#/Vol] 0.0 10 3/uL 0.0-0.1 [facility] Basophils/100 WBC Auto (Bld) on 02-14-2024 Basophils/100 WBC (Bld) 0.8 % 0.2-2.0 [facility] Eosinophils/100 WBC Auto (Bl d)on 02-14-2024 Eosinophils/100 WBC (Bld) 1.5 % 0.9-7.0 [facility] Erythrocyte distribution wid th Auto (RBC) [Ratio]on 02-14-2024 Erythrocyte distribution width (RBC) [Ratio] 15.1 % High 11.0-15.0 [facility] Hematocrit Auto (Bld) [Volum e fraction]on 02-14-2024 Hematocrit (Bld) [Volume fraction] 35.4 % Low 36.0-48.0 [facility] Hemoglobin [Mass/volume] in Bloodon 02-14-2024 Hemoglobin (Bld) [Mass/Vol] 11.0 g/dL Low 12.0-16.0 [facility] Iron binding capacity [Mass/ volume] in Serum or Plasmaon 02-14-2024 Iron binding capacity [Mass/Vol] 303.0 ug/dL 250.0-450.0 [facility] Iron saturation [Mass Fracti on] in Serum or Plasmaon 02-14-2024 Iron saturation [Mass fraction] 81.2 % [facility] Laboratory - Chemistry and C hemistry - challengeon 02-14-2024 Cobalamin (Vitamin B12) [Mass/Vol] 225.0 pg/mL 193.0-986.0 [facility] Ferritin [Mass/Vol] 338.0 ng/mL High 8.0-252.0 [facility] Iron [Mass/Vol] 246.0 ug/dL High 50.0-170.0 [facility] Laboratory - Hematology and Cell countson 02-14-2024 Immature granulocytes/100 WBC (Bld) 0.8 % High 0.0-0.5 [facility] Leukocytes [#/volume] correc fito for nucleated erythrocytes in Blood by Automated counon 02-14-2024 WBC corrected for nucl RBC Auto (Bld) [#/Vol] 4.7 10 3/uL 4.0-11.0 [facility] Lymphocytes Auto (Bld) [#/Vo l]on 02-14-2024 Lymphocytes (Bld) [#/Vol] 2.3 10 3/uL 1.2-3.8 [facility] Lymphocytes/100 WBC Auto (Bl d)on 02-14-2024 Lymphocytes/100 WBC (Bld) 48.7 % 20.5-60.0 [facility] MCH Auto (RBC) [Entitic mass ]on 02-14-2024 MCH (RBC) [Entitic mass] 31.9 pg 26.7-34.0 [facility] MCHC Auto (RBC) [Mass/Vol]on 02-14-2024 MCHC (RBC) [Mass/Vol] 31.1 g/dL 29.9-35.2 [facility] MCV Auto (RBC) [Entitic vol] on 02-14-2024 MCV (RBC) [Entitic vol] 102.6 fL High 81.0-99.0 [facility] Monocytes Auto (Bld) [#/Vol] on 02-14-2024 Monocytes (Bld) [#/Vol] 0.6 10 3/uL 0.3-0.8 [facility] Monocytes/100 WBC Auto (Bld) on 02-14-2024 Monocytes/100 WBC (Bld) 13.3 % High 1.7-12.0 [facility] Neutrophils Auto (Bld) [#/Vo l]on 02-14-2024 Neutrophils (Bld) [#/Vol] 1.7 10 3/uL 1.4-6.5 [facility] Neutrophils/100 WBC Auto (Bl d)on 02-14-2024 Neutrophils/100 WBC (Bld) 34.9 % Low 43.0-75.0 [facility] No Panel Informationon 02-13 Eosinophils # (Auto) 0.1 10 3/uL 0.0-0.7 [facility] Immature Granulocyte # (Auto) 0.04 10 3/uL High 0.00-0.03 [facility] Folate 9.40 ng/mL 8.60-58.90 [facility] Platelet mean volume Auto (B ld) [Entitic vol]on 02-14-2024 Platelet mean volume (Bld) [Entitic vol] 9.1 fL Low 9.5-13.5 [facility] Platelets Auto (Bld) [#/Vol] on 02-14-2024 Platelets (Bld) [#/Vol] 197 10 3/uL 150-450 [facility] RBC Auto (Bld) [#/Vol]on RBC (Bld) [#/Vol] 3.45 10 6/uL Low 4.20-5.40 [facility] Basophils Auto (Bld) [#/Vol] on 02-02-2024 Basophils (Bld) [#/Vol] 0.0 10 3/uL 0.0-0.1 [facility] Basophils/100 WBC Auto (Bld) on 02-02-2024 Basophils/100 WBC (Bld) 0.8 % 0.2-2.0 [facility] Eosinophils/100 WBC Auto (Bl d)on 02-02-2024 Eosinophils/100 WBC (Bld) 2.1 % 0.9-7.0 [facility] Erythrocyte distribution wid th Auto (RBC) [Ratio]on 02-02-2024 Erythrocyte distribution width (RBC) [Ratio] 14.2 % 11.0-15.0 [facility] Estimated glomerular filtrat ion rate (GFR) non- Americanon 02-02-2024 GFR/1.73 sq M.predicted among non-blacks MDRD (S/P/Bld) [Vol rate/Area] 51 mL/min/{1.73_m2} Low >=60 [facility] Globulin Calc (S) [Mass/Vol] on 02-02-2024 Globulin (S) [Mass/Vol] 2.9 g/dL [facility] Hematocrit Auto (Bld) [Volum e fraction]on 02-02-2024 Hematocrit (Bld) [Volume fraction] 31.9 % Low 36.0-48.0 [facility] Hemoglobin [Mass/volume] in Bloodon 02-02-2024 Hemoglobin (Bld) [Mass/Vol] 10.2 g/dL Low 12.0-16.0 [facility] Laboratory - Chemistry and C hemistry - challengeon 02-02-2024 Albumin [Mass/Vol] 3.9 g/dL 3.4-5.0 [facility] ALP [Catalytic activity/Vol] 48 U/L 46-116 [facility] ALT [Catalytic activity/Vol] 20 U/L 14-59 [facility] AST [Catalytic activity/Vol] 23 U/L 15-37 [facility] Bilirubin [Mass/Vol] 0.5 mg/dL 0.2-1.0 [facility] Calcium [Mass/Vol] 9.1 mg/dL 8.5-10.1 [facility] Chloride [Moles/Vol] 108 mmol/L High 98-107 [facility] CO2 [Moles/Vol] 24.8 mmol/L 21.0-32.0 [facility] Creatinine [Mass/Vol] 1.09 mg/dL High 0.55-1.02 [facility] GFR/1.73 sq M.predicted MDRD (S/P/Bld) [Vol rate/Area] mL/min/{1.73_m2} >=60 [facility] Glucose [Mass/Vol] 87 mg/dL 74-106 [facility] Potassium [Moles/Vol] 3.9 mmol/L 3.5-5.1 [facility] Protein [Mass/Vol] 6.8 g/dL 6.4-8.2 [facility] Sodium [Moles/Vol] 144 mmol/L 136-145 [facility] Urea nitrogen [Mass/Vol] 17.0 mg/dL 7.0-18.0 [facility] Urea nitrogen/Creatinine [Mass ratio] 15.6 mg/mg [facility] Laboratory - Hematology and Cell countson 02-02-2024 ESR (Bld) [Velocity] 12 mm/h <=30 [facility] Immature granulocytes/100 WBC (Bld) 0.5 % 0.0-0.5 [facility] Leukocytes [#/volume] correc fito for nucleated erythrocytes in Blood by Automated counon 02-02-2024 WBC corrected for nucl RBC Auto (Bld) [#/Vol] 3.8 10 3/uL Low 4.0-11.0 [facility] Lymphocytes Auto (Bld) [#/Vo l]on 02-02-2024 Lymphocytes (Bld) [#/Vol] 1.5 10 3/uL 1.2-3.8 [facility] Lymphocytes/100 WBC Auto (Bl d)on 02-02-2024 Lymphocytes/100 WBC (Bld) 40.3 % 20.5-60.0 [facility] MCH Auto (RBC) [Entitic mass ]on 02-02-2024 MCH (RBC) [Entitic mass] 31.7 pg 26.7-34.0 [facility] MCHC Auto (RBC) [Mass/Vol]on 02-02-2024 MCHC (RBC) [Mass/Vol] 32.0 g/dL 29.9-35.2 [facility] MCV Auto (RBC) [Entitic vol] on 02-02-2024 MCV (RBC) [Entitic vol] 99.1 fL High 81.0-99.0 [facility] Monocytes Auto (Bld) [#/Vol] on 02-02-2024 Monocytes (Bld) [#/Vol] 0.6 10 3/uL 0.3-0.8 [facility] Monocytes/100 WBC Auto (Bld) on 02-02-2024 Monocytes/100 WBC (Bld) 16.1 % High 1.7-12.0 [facility] Neutrophils Auto (Bld) [#/Vo l]on 02-02-2024 Neutrophils (Bld) [#/Vol] 1.5 10 3/uL 1.4-6.5 [facility] Neutrophils/100 WBC Auto (Bl d)on 02-02-2024 Neutrophils/100 WBC (Bld) 40.2 % Low 43.0-75.0 [facility] No Panel Informationon 02-01 Eosinophils # (Auto) 0.1 10 3/uL 0.0-0.7 [facility] Immature Granulocyte # (Auto) 0.02 10 3/uL 0.00-0.03 [facility] Platelet mean volume Auto (B ld) [Entitic vol]on 02-02-2024 Platelet mean volume (Bld) [Entitic vol] 9.3 fL Low 9.5-13.5 [facility] Platelets Auto (Bld) [#/Vol] on 02-02-2024 Platelets (Bld) [#/Vol] 236 10 3/uL 150-450 [facility] RBC Auto (Bld) [#/Vol]on RBC (Bld) [#/Vol] 3.22 10 6/uL Low 4.20-5.40 [facility] Serum or plasma albumin/glob ulin mass ratioon 02-02-2024 Albumin/Globulin [Mass ratio] 1.3 {ratio} [facility] Serum or plasma anion gap de terminationon 02-02-2024 Anion gap [Moles/Vol] 15.1 mmol/L [facility] XR Shoulder - right 2 Viewso n 11-25-2023 Imaging Result: 4 views right shoulder, Grashey/Zanca/outlet/axilla ry, taken today and saved to the permanent medical record. Prosthesis is unchanged in position and alignment. Fracture at the base of the acromion unchanged in appearance. [facility] XR Shoulder - right 2 Viewso n 11-15-2023 Radiology Study observation (narrative) [facility] CT Upper Extremity w/o Contr ast Righton [...] MD Transcribed by: DANISHA Technologist: ARNULFO Shah [facility] Miscellaneous-LCon Lab Miscellaneous COMMENT Invalid Interpretation Code [facility] Comment on above: Result Comment: Test Ordered: [id number] Interleukin-6, Serum Interleukin-6, Serum <2.5 pg/mL CB [...] endotracheal intubation or mechanical ventilation. Performed at: [facility] [id number] PhD Saturnino Morse Performed By: #### 1 [id number] ####[facility] [address] [place] [address] CBC w/ Auto Diffon 4 Basophil Absolute 0.0 E9/L Normal 0.0-0.2 [facility] Comment on above: Performed By: #### 2 [id number], [id number], [id number] #### [facility] [address] [place] [address] Basophils/100 WBC (Bld) 0.4 % Normal 0.0-2.0 [facility] Comment on above: Performed By: #### 2 [id number], [id number], [id number] #### [facility] [address] [place] [address] Eos Absolute 0.0 E9/L Normal 0.0-0.5 [facility] Comment on above: Performed By: #### 2 145870, [id number], [id number] #### [facility] [address] [place] [address] Eosinophils/100 WBC (Bld) 0.2 % Normal 0.0-8.0 [facility] Comment on above: Performed By: #### 2 007914, [id number], [id number] #### [facility] [address] [place] [address] Erythrocyte distribution width (RBC) [Ratio] 14.3 % High 10.9-14.2 [facility] Comment on above: Performed By: #### 2 [id number], [id number], [id number] #### [facility] [address] [place] [address] Hematocrit (Bld) [Volume fraction] 40.0 % Normal 34.0-46.0 [facility] Comment on above: Performed By: #### 2 745131, [id number], [id number] #### [facility] [address] [place] [address] Hemoglobin (Bld) [Mass/Vol] 12.7 g/dL Normal 12.0-16.0 [facility] Comment on above: Performed By: #### 2 816727, [id number], [id number] #### [facility] [address] [place] [address] Lymph Absolute 0.9 E9/L Low 1.0-4.0 [facility] Comment on above: Performed By: #### 2 [id number], [id number], [id number] #### [facility] [address] [place] [address] Lymphocytes/100 WBC (Bld) 25.2 % Normal 14.0-50.0 [facility] Comment on above: Performed By: #### 2 312030, [id number], [id number] #### [facility] [address] [place] [address] MCH (RBC) [Entitic mass] 30.6 pg Normal 27.0-34.0 [facility] Comment on above: Performed By: #### 2 002319, [id number], [id number] #### [facility] [address] [place] [address] MCHC (RBC) [Mass/Vol] 31.7 g/dL Normal 31.4-36.0 [facility] Comment on above: Performed By: #### 2 963353, [id number], [id number] #### [facility] [address] [place] [address] MCV (RBC) [Entitic vol] 96.5 fL Normal 80.0-100.0 [facility] Comment on above: Performed By: #### 2 066421, [id number], [id number] #### [facility] [address] [place] [address] [place] Absolute 0.3 E9/L Normal 0.2-1.0 [facility] Comment on above: Performed By: #### 2 357200, [id number], [id number] #### [facility] [address] [place] [address] Monocytes/100 WBC (Bld) 7.3 % Normal 4.0-14.0 [facility] Comment on above: Performed By: #### 2 715078, [id number], [id number] #### [facility] [address] [place] [address] Neutro Absolute 2.3 E9/L Normal 2.0-7.5 [facility] Comment on above: Performed By: #### 2 593524, [id number], [id number] #### [facility] [address] [place] [address] Neutro Auto 66.9 % Normal 36.0-75.0 [facility] Comment on above: Performed By: #### 2 365251, 7932043, [id number] #### [facility] [address] [place] [address] Platelet 257.0 E9/L Normal 150.0-500.0 [facility] Comment on above: Performed By: #### 2 646389, 8272694, [id number] #### [facility] [address] [place] [address] Platelet mean volume (Bld) [Entitic vol] 7.4 fL Normal 6.4-10.8 [facility] Comment on above: Performed By: #### 2 851711, [id number], [id number] #### [facility] [address] [place] [address] RBC 4.1 E12/L Low 4.3-5.9 [facility] Comment on above: Performed By: #### 2 729648, 0570520, [id number] #### [facility] [address] [place] [address] WBC 3.4 E9/L Low 4.0-11.0 [facility] Comment on above: Performed By: #### 2 353858, 8819166, [id number] #### [facility] [address] [place] [address] CHEMISTRYOrdered By: SYSTEM SYSTEM on 09-06-2023 CRP mg/dL Normal <=1.9mg/dL Remisol Chem CRPon 09-06-2023 CRP [Mass/Vol] mg/L Normal <=1.9 [facility] Comment on above: Performed By: #### 2 826962, [id number], [id number] #### [facility] [address] [place] [address] Consent for Treatmenton 08-12 Consent for Treatment [id number] Normal [facility] HEMATOLOGYOrdered By: SYSTEM SYSTEM on [...] Normal 80.0 - 100.0 fL Remisol Heme [place] Absolute 0.3 E9/L Normal 0.2 - 1.0 [...] 14 mm/h Normal 0 - 34 mm/hr [facility] HemeAutoSS Lab Miscellaneous-LCon 09-06 Test Code 069827 Invalid Interpretation Code [facility] Comment on above: Performed By: #### 1 [id number] ####[facility] [address] [place] [address] Test Name interleukin 6 Invalid Interpretation Code [facility] Comment on above: Performed By: #### 1 [id number] ####[facility] [address] [place] [address] Physician Orderon 09-06-2023 Physician Order [id number] Normal [facility] Reference Laboratory Testing Ordered By: Jojo Gonsales on 09-06-2023 Test Code 443386 1 Invalid Interpretation Code [facility] SendOutsSS Test Name interleukin 6 Invalid Interpretation Code [facility] SendOutsSS Sed Rate Automatedon 024 ESR (Bld) [Velocity] 14 mm/h Normal 0-34 [facility] Comment on above: Performed By: #### 2 944038, [id number], [id number] #### [facility] [address] [place] [address] Physician Orderon 08-31-2023 Physician Order [id number]#[id number] Normal [facility] Basophils Auto (Bld) [#/Vol] on 08-30-2023 Basophils (Bld) [#/Vol] 0.0 10 3/uL 0.0-0.1 [facility] Basophils/100 WBC Auto (Bld) on 08-30-2023 Basophils/100 WBC (Bld) 0.8 % 0.2-2.0 [facility] Cholesterol in LDL Calc [Mas s/Vol]on 08-30-2023 Cholesterol in LDL [Mass/Vol] 152.0 mg/dL [facility] Comment on above: <100 mg/dl [id number] 0-129 mg/dl NEAR OR ABOVE [id number] mg/dl BORDERLINE [id number] mg/dl HIGH>190 mg/dl VERY HIGH Cholesterol in VLDL Calc [Ma ss/Vol]on 08-30-2023 Cholesterol in VLDL [Mass/Vol] 20.2 mg/dL [facility] Eosinophils/100 WBC Auto (Bl d)on 08-30-2023 Eosinophils/100 WBC (Bld) 4.2 % 0.9-7.0 [facility] Erythrocyte distribution wid th Auto (RBC) [Ratio]on 08-30-2023 Erythrocyte distribution width (RBC) [Ratio] 13.4 % 11.0-15.0 [facility] Estimated glomerular filtrat ion rate (GFR) non- Americanon 08-30-2023 GFR/1.73 sq M.predicted among non-blacks MDRD (S/P/Bld) [Vol rate/Area] 59 mL/min/{1.73_m2} >=60 [facility] Globulin Calc (S) [Mass/Vol] on 08-30-2023 Globulin (S) [Mass/Vol] 3.4 g/dL [facility] Hematocrit Auto (Bld) [Volum e fraction]on 08-30-2023 Hematocrit (Bld) [Volume fraction] 39.5 % 36.0-48.0 [facility] Hemoglobin [Mass/volume] in Bloodon 08-30-2023 Hemoglobin (Bld) [Mass/Vol] 12.5 g/dL 12.0-16.0 [facility] Laboratory - Chemistry and C hemistry - challengeon 08-30-2023 Albumin [Mass/Vol] 3.7 g/dL 3.4-5.0 [facility] ALP [Catalytic activity/Vol] 45 U/L 46-116 [facility] ALT [Catalytic activity/Vol] 23 U/L 14-59 [facility] AST [Catalytic activity/Vol] 21 U/L 15-37 [facility] Bilirubin [Mass/Vol] 0.4 mg/dL 0.2-1.0 [facility] Calcium [Mass/Vol] 9.0 mg/dL 8.5-10.1 [facility] Chloride [Moles/Vol] 106 mmol/L 98-107 [facility] Cholesterol [Mass/Vol] 246 mg/dL <=200 [facility] Cholesterol in HDL [Mass/Vol] 74 mg/dL 40-60 [facility] Comment on above: > or =60 mg/dl - LOW CARDIOVASCULAR RISK<40 mg/dl - HIGH CARDIOVASCULAR RISK CO2 [Moles/Vol] 25.5 mmol/L 21.0-32.0 [facility] Creatinine [Mass/Vol] 0.96 mg/dL 0.55-1.02 [facility] GFR/1.73 sq M.predicted MDRD (S/P/Bld) [Vol rate/Area] mL/min/{1.73_m2} >=60 [facility] Glucose [Mass/Vol] 86 mg/dL 74-106 [facility] Potassium [Moles/Vol] 3.8 mmol/L 3.5-5.1 [facility] Protein [Mass/Vol] 7.1 g/dL 6.4-8.2 [facility] Sodium [Moles/Vol] 142 mmol/L 136-145 [facility] Triglyceride [Mass/Vol] 101 mg/dL <=150 [facility] TSH Qn 1.531 m[IU]/L 0.358-3.740 [facility] Urea nitrogen [Mass/Vol] 20.0 mg/dL 7.0-18.0 [facility] Urea nitrogen/Creatinine [Mass ratio] 20.8 mg/mg [facility] Laboratory - Hematology and Cell countson 08-30-2023 ESR (Bld) [Velocity] 16 mm/h <=30 [facility] Immature granulocytes/100 WBC (Bld) 0.3 % 0.0-0.5 [facility] Leukocytes [#/volume] correc fito for nucleated erythrocytes in Blood by Automated counon 08-30-2023 WBC corrected for nucl RBC Auto (Bld) [#/Vol] 3.8 10 3/uL 4.0-11.0 [facility] Lymphocytes Auto (Bld) [#/Vo l]on 08-30-2023 Lymphocytes (Bld) [#/Vol] 1.7 10 3/uL 1.2-3.8 [facility] Lymphocytes/100 WBC Auto (Bl d)on 08-30-2023 Lymphocytes/100 WBC (Bld) 44.8 % 20.5-60.0 [facility] MCH Auto (RBC) [Entitic mass ]on 08-30-2023 MCH (RBC) [Entitic mass] 31.1 pg 26.7-34.0 [facility] MCHC Auto (RBC) [Mass/Vol]on 08-30-2023 MCHC (RBC) [Mass/Vol] 31.6 g/dL 29.9-35.2 [facility] MCV Auto (RBC) [Entitic vol] on 08-30-2023 MCV (RBC) [Entitic vol] 98.3 fL 81.0-99.0 [facility] Monocytes Auto (Bld) [#/Vol] on 08-30-2023 Monocytes (Bld) [#/Vol] 0.5 10 3/uL 0.3-0.8 [facility] Monocytes/100 WBC Auto (Bld) on 08-30-2023 Monocytes/100 WBC (Bld) 14.1 % 1.7-12.0 [facility] Neutrophils Auto (Bld) [#/Vo l]on 08-30-2023 Neutrophils (Bld) [#/Vol] 1.4 10 3/uL 1.4-6.5 [facility] Neutrophils/100 WBC Auto (Bl d)on 08-30-2023 Neutrophils/100 WBC (Bld) 35.8 % 43.0-75.0 [facility] No Panel Informationon 08-30 Eosinophils # (Auto) 0.2 10 3/uL 0.0-0.7 [facility] Immature Granulocyte # (Auto) 0.01 10 3/uL 0.00-0.03 [facility] Platelet mean volume Auto (B ld) [Entitic vol]on 08-30-2023 Platelet mean volume (Bld) [Entitic vol] 9.1 fL 9.5-13.5 [facility] Platelets Auto (Bld) [#/Vol] on 08-30-2023 Platelets (Bld) [#/Vol] 181 10 3/uL 150-450 [facility] RBC Auto (Bld) [#/Vol]on RBC (Bld) [#/Vol] 4.02 10 6/uL 4.20-5.40 [facility] Serum or plasma albumin/glob ulin mass ratioon 08-30-2023 Albumin/Globulin [Mass ratio] 1.1 {ratio} [facility] Serum or plasma anion gap de terminationon 08-30-2023 Anion gap [Moles/Vol] 14.3 mmol/L [facility] Serum or plasma total choles terol/high density lipoprotein (HDL) cholesterol mass [place] 08-30-2023 Cholesterol.total/C holesterol in HDL [Mass ratio] 3.3 {ratio} [facility] Comment on above: 3.3 - [...] fractures at the coracoid process. [facility] XR Shoulder - right 2 Viewso n 08-18-2023 Radiology Study observation (narrative) [facility] IntraOperative Documentson 1 IntraOperative Documents [id number] Normal [facility] Auto Diffon 04-07-2023 Basophils/100 WBC (Bld) 0.2 % Normal 0.0-2.0 [facility] Comment on above: Order Comment: Order Added by Discern Expert. Performed By: #### 2 [id number], [id number], [id number], [id number], [id number] #### [facility] [address] [place] [address] Basophils/Leukocyte s Auto (Bld) [Pure # fraction] 0.0 E9/L Normal 0.0-0.2 [facility] Comment on above: Order Comment: Order Added by Discern Expert. Performed By: #### 2 [id number], [id number], [id number], [id number], [id number], [id number] #### [facility] [address] [place] [address] Eosinophils/100 WBC (Bld) 0.0 % Normal 0.0-8.0 [facility] Comment on above: Order Comment: Order Added by Discern Expert. Performed By: #### 2 727787, 7898027, 1392572, 8131956, 67880893, 6750314 #### [facility] [address] [place] [address] Eosinophils/Leukocy elli Auto (Bld) [Pure # fraction] 0.0 E9/L Normal 0.0-0.5 [facility] Comment on above: Order Comment: Order Added by Discern Expert. Performed By: #### 2 549323, 4610460, 4042896, 0921234, 03009444, 6425857 #### [facility] [address] [place] [address] Lymphocytes/100 WBC (Bld) 7.9 % Low 14.0-50.0 [facility] Comment on above: Order Comment: Order Added by Discern Expert. Performed By: #### 2 600551, 9081630, 4785359, 2003340, 72298335, 1743978 #### [facility] [address] [place] [address] Lymphocytes/Leukocy elli Auto (Bld) [Pure # fraction] 0.8 E9/L Low 1.0-4.0 [facility] Comment on above: Order Comment: Order Added by Discern Expert. Performed By: #### 2 440316, 5940885, 5930592, 5502159, 58983223, 3414004 #### [facility] [address] [place] [address] Monocytes/100 WBC (Bld) 14.0 % Normal 4.0-14.0 [facility] Comment on above: Order Comment: Order Added by Discern Expert. Performed By: #### 2 808410, 0024264, 5815603, 9235397, 19492036, 7145006 #### [facility] [address] [place] [address] Monocytes/Leukocyte s Auto (Bld) [Pure # fraction] 1.3 E9/L High 0.2-1.0 [facility] Comment on above: Order Comment: Order Added by Discern Expert. Performed By: #### 2 418406, 2489889, 0844380, 7371351, 01305670, 5626561 #### [facility] [address] [place] [address] Neutrophils/100 WBC (Bld) 77.9 % High 36.0-75.0 [facility] Comment on above: Order Comment: Order Added by Discern Expert. Performed By: #### 2 859152, 1576531, 7292680, 0516333, 44141785, 3495848 #### [facility] [address] [place] [address] Neutrophils/Leukocy elli Auto (Bld) [Pure # fraction] 7.5 E9/L Normal 2.0-7.5 [facility] Comment on above: Order Comment: Order Added by Discern Expert. Performed By: #### 2 323730, 3333190, 1932825, 8353744, 85962881, 8677724 #### [facility] [address] [place] [address] BUNon 04-07-2023 Urea nitrogen [Mass/Vol] 20 mg/dL Normal 5-21 [facility] Comment on above: Performed By: #### 2 711911, 5278464, 8427610, 1745698, 62571858, 3556248 #### [facility] [address] [place] [address] CBC w/ Auto Diffon Erythrocyte distribution width (RBC) [Ratio] 14.6 % High 10.9-14.2 [facility] Comment on above: Performed By: #### 2 529961, 4324347, 2371021, 3627316, 73389753, 7754716 #### [facility] [address] [place] [address] Hematocrit (Bld) [Volume fraction] 29.7 % Low 34.0-46.0 [facility] Comment on above: Performed By: #### 2 937065, 0058415, 3325861, 2549545, 02150520, 7460477 #### [facility] [address] [place] [address] Hemoglobin (Bld) [Mass/Vol] 10.0 g/dL Low 12.0-16.0 [facility] Comment on above: Performed By: #### 2 926478, 9794062, 9150612, 0701665, 34822059, 3840560 #### [facility] [address] [place] [address]67 MCH (RBC) [Entitic mass] 32.5 pg Normal 27.0-34.0 [facility] Comment on above: Performed By: #### 2 189411, 2838217, 0490416, 0523151, 12729894, 3040408 #### [facility] [address] [place] [address] MCHC (RBC) [Mass/Vol] 33.6 g/dL Normal 31.4-36.0 [facility] Comment on above: Performed By: #### 2 045304, 6930852, 4547342, 2082698, 86264974, 5882721 #### [facility] [address] [place] [address] MCV (RBC) [Entitic vol] 96.7 fL Normal 80.0-100.0 [facility] Comment on above: Performed By: #### 2 785644, 5671126, 4996224, 2421583, 72151184, 4908291 #### [facility] [address] [place] [address] Platelet mean volume (Bld) [Entitic vol] 7.1 fL Normal 6.4-10.8 [facility] Comment on above: Performed By: #### 2 705531, 2254177, 0481003, 1074416, 83114387, 4608643 #### [facility] [address] [place] [address] Platelets (Bld) [#/Vol] 215.0 E9/L Normal 150.0-500.0 [facility] Comment on above: Performed By: #### 2 084876, 8388663, 3522438, 9994703, 32020695, 5960895 #### [facility] [address] [place] [address] RBC (Bld) [#/Vol] 3.1 E12/L Low 4.3-5.9 [facility] Comment on above: Performed By: #### 2 105701, 0540538, 7166718, 2095269, 35004936, 3322981 #### [facility] [address] [place] [address] WBC corrected for nucl RBC Auto (Bld) [#/Vol] 9.6 E9/L Normal 4.0-11.0 [facility] Comment on above: Performed By: #### 2 280415, 9623334, 1448975, 0672230, 63216738, 3558096 #### [facility] [address] [place] [address] CHEMISTRYOrdered By: SYSTEM SYSTEM on 04-07-2023 Anion gap [Moles/Vol] 6 mmol/L Normal 6 - 16 mEq/L [facility] Remisol Chloride [Moles/Vol] 118 mmol/L High 101 - 111 mmol/L [facility] Remisol CO2 [Moles/Vol] 23 mmol/L Normal 21 - 31 mmol/L [facility] Remisol Creatinine [Mass/Vol] 0.9 mg/dL Normal 0.5 - 1.3 mg/dL [facility] Remisol GFR/1.73 sq M.predicted among non-blacks MDRD (S/P/Bld) [Vol rate/Area] 72 mL/min/1.73 m2 Normal >=59mL/min/ 1.73 m2 [facility] Chem S Comment on above: Interpretive Data: C hronic kidney disease could be indicated at eGFR's of less than 60 mL/min/1.73m2. Kidney failure is indicated at less than 15 mL/min/1.73m2. Potassium [Moles/Vol] 4.0 mmol/L Normal 3.5 - 5.3 mmol/L [facility] Remisol Sodium [Moles/Vol] 143 mmol/L Normal 135 - 145 mmol/L [facility] Remisol Urea nitrogen [Mass/Vol] 20 mg/dL Normal 5 - 21 mg/dL [facility] Remisol Consent for Anesthesiaon Consent for Anesthesia [id number]#[id number]:127 Normal [facility] Creatinineon 04-07-2023 Creatinine [Mass/Vol] 0.9 mg/dL Normal 0.5-1.3 [facility] Comment on above: Performed By: #### 2 852406, 5351669, 9062698, 9327783, 49358609, 6201572 ####[facility] [address] [place] [address] Discharge Instructionson Discharge Instructions [id number]#[id number]:127 Normal [facility] Discharge Note-Nursingon Discharge Note-Nursing RADHA [...] Diagnostic Test Results None Pharmacy Information [facility] New Follow Up Appointments after Discharge Follow Up with Jordan Yuan When: Where: [address] [place] [address]- Business (1) Follow Up with JOHN ASHBY When: In 0 days Where: [address] [facility] [place] [address]- Business (1) Medications What How Much When Instructions Next Dose Changed acetaminophen-oxycodone (Percocet 5 mg-325 mg oral tablet) See instructions 1-2 tab(s) Oral q4hr Pickup at [facility]/pharmacy #5424 Next dose due after 10am Unchanged buPROPion (Wellbutrin XL 300 mg/ 24 hours Tab-ER) 1 Tablets By Mouth 2 times a day 04/07/23 @ 9pm Unchanged celecoxib (CeleBREX 100 mg Cap) 1 Capsules By Mouth 2 times a day as needed for for pain [facility] 04/07/23 @ 9pm Unchanged cephalexin (Keflex 500 mg Cap) 1 Capsules By Mouth Every 8 hours Duration: 7 Days [facility] 04/07/23 @ 2pm and bedtime Unchanged docusate (Colace 100 mg Cap) 1 Capsules By Mouth 2 times a day as needed for for constipation [facility] 04/07/23 @ 9pm Unchanged leflunomide [...] Every day 04/08/23 @ 9am [id number] [address] [place] [address], [place] [phone] Test Results CBC BMP WBC: 9.6 E9/L [...] Lateralized/ 24, Shoulder Implant 04/06/2023 Univers revers [place] humeral Stem Size 9, Shoulder Implant 04/06/2023 UniversRevers SutureCap, 36 neutral, shoulder Implant 04/06/2023 universrevers Humeral Insert, small, 36, +6, Shoulder (more content not included)... Normal [facility] HEMATOLOGYOrdered By: SYSTEM SYSTEM on [...] 3.1 E12/L Low 4.3 - 5.9 E12/L [facility] HemeAutoSS WBC corrected for nucl RBC Auto (Bld) [#/Vol] 9.6 E9/L Normal 4.0 - 11.0 E9/L [facility] HemeAutoSS Inpatient Clinical Summaryon 04-07-2023 Inpatient Clinical Summary [address] [address] Clinical Summary Person Information: Name: RADHA ZAIDI Age: 62 Years : 1960 Sex: Female PCP: JOHN ASHBY DO Marital Status: Phone: [phone] Race: White Ethnicity: Non- or Language: Upper Sorbian Visit Id: Visit Reason: OA RIGHT SHOULDER Speciality: Acuity: Enc Type: Observation Med Service: Medical Arrival: 04/06/2023 06:09:55 Discharge: Dispo Type: Address: [address] [place] [address] [address] [place] [id number] Provider Notes: Patient: RADHA ZAIDI Age: 62 [...] Follow up: With: Address: When: Jordan Yuan [address] [place], [place] [id number] Business (1) 04/19/2023 2:15 PM With: Address: When: JOHN ASHBY [address] [place] [address] Business (1) Patient Education Information: Levy Yuan. - Shoulder Replacement (Custom) [facility] Inpatient Patient Summaryon 04-07-2023 Inpatient Patient Summary [address] [address] Patient Discharge Instructions PERSON INFORMATION Name: ZAIDI, RADHA Lockett Date of : 1960 Current Date: 04/07/2023 [...] None Follow up: With: Address: When: [place] [address] Business (1) 04/19/2023 2:15 PM With: Address: When: JOHN ASHBY [address] [facility] [place], [place] [id number] Business (1) In the event that this [...] That Have Changed [facility], [address], [place] [phone], [phone] START: acetaminophen-oxycodone (Percocet 5 mg-325 mg oral tablet) 1-2 tab(s) Oral q4hr. Refills: 0. Last Dose: Ne xt Dose: STOP: acetaminophen-oxycodone (Percocet 5 mg-325 mg oral tablet) 1 Tablets By Mouth 3 times a day. Medications to Continue with No Changes [facility], [address], [place] [phone], [phone] celecoxib (CeleBREX 100 mg Cap) 1 Capsules [...] Tablets By Mouth every day. Pharmacy Information: [facility] [phone] (more content not included)... Normal [facility] IntraOperative Documentson 0 04-07-2023 IntraOperative Documents [id number]#1.00CD:127 Normal [facility] IntraOperative Documents [id number]#1.00CD:127 Normal [facility] Lyteson 04-07-2023 Anion gap [Moles/Vol] 6 mmol/L Normal 6-16 [facility] Comment on above: Performed By: #### 2 247615, 1616820, 6322931, 0348827, 79151763, 0834072 ####[facility] [address] [place] [address] Chloride [Moles/Vol] 118 mmol/L High 101-111 [facility] Comment on above: Performed By: #### 2 147368, 2592552, 5273367, 4845966, 83613466, 5151733 ####[facility] [address] [place] [address] CO2 [Moles/Vol] 23 mmol/L Normal 21-31 [facility] Comment on above: Performed By: #### 2 651713, 2070682, 2308447, 5469388, 79882811, 2963487 ####[facility] [address] [place] [address] Potassium [Moles/Vol] 4.0 mmol/L Normal 3.5-5.3 [facility] Comment on above: Performed By: #### 2 677460, 8104312, 7444883, 0783504, 10358197, 0485659 ####[facility] [address] [place] [address] Sodium [Moles/Vol] 143 mmol/L Normal 135-145 [facility] Comment on above: Performed By: #### 2 570058, 5897737, 0465126, 0261020, 45605344, 2255960 ####[facility] [address] [place] [address] Main OR Intraoperative Recor don 04-07-2023 Main OR Intraoperative Record IntraOp Document Type FT Summary Primary Physician: Jordan Yuan DO Finalized Date/Time: 04/07/23 14:30:58 Pt. Name: RADHA ZAIDI /Sex: 1960 Female Med Rec #: [id number] Physician: Jordan Yuan DO Financial #: [id number] Pt. Type: A Room/Bed: [place] [address] Admit/Disch: 04/06/23 06:09:55 - 04/07/23 09:30:00 Institution: Case Times FT Entry 1 Patient Times In Room 04/06/23 09:32:00 Out Room 04/06/23 11:36:00 Procedure Times Start 04/06/23 10:14:00 Stop 04/06/23 11:30:00 Anesthesia Times Start 04/06/23 09:32:00 Stop 04/06/23 11:36:00 Block Timeout w/ 04/06/23 08:24:00 Anesthesia Last Modified By: Dennis Goldman [...] Steinberg CRNA, DO, Jason A Krupp RN, Andrea L Role Performed JULIEN Surgeon - Primary Machine Edge Bander - Primary Time In 04/06/23 09:32:00 04/06/23 10:05:00 04/06/23 09:32:00 Time Out 04/06/23 11:36:00 04/06/23 11:16:00 04/06/23 11:36:00 Procedure SHOULDER TOTAL SHOULDER TOTAL SHOULDER TOTAL ARTHROPLASTY(Right) ARTHROPLASTY(Right) ARTHROPLASTY(Right) 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 , 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 Last Modified By: Wanda SKIDWAY WORKER, Sharmaine Goldman RN, Dennis Goldman RN, Dennis Curry 04/07/23 14:28:51 04/06/23 11:35:47 04/06/23 11:35:47 Entry 4 Entry 5 Entry 6 Case Attendee Valerie SKIDWAY WORKER, Jena Taylor SKIDWAY WORKER, John Role Performed Scrub - Primary Scrub - Primary SKIDWAY WORKER/SA Time In 04/06/23 09:32:00 04/06/23 09:32:00 04/06/23 09:32:00 Time Out 04/06/23 11:20:00 04/06/23 11:36:00 04/06/23 11:36:00 Procedure SHOULDER TOTAL SHOULDER TOTAL SHOULDER TOTAL ARTHROPLASTY(Right) ARTHROPLASTY(Right) ARTHROPLASTY(Right) Comments in orientation Last Modified By: Susi HARO, Dennis Goldman RN, Dennis Goldman RN, Dennis [...] Steinberg CRNA, Given Participants Jordan Yuan DO, Susi HARO, Dennis Curry, Valerie SKIDWAY WORKER, Eddie Good, Jena Mann, Mark SKIDWAY WORKER, Alfredo Lopez Jessica D, Deyanira Oates Time [...] traffic control (more content not included)... Normal [facility] Main OR PACU I Recordon 03-12 Main OR PACU I Record PACU Phase I Document Type FT Summary Primary Physician: Jordan Yuan DO Finalized Date/Time: 04/07/23 08:05:19 Pt. Name: RADHA ZAIDI/Sex: 1960 Female Med Rec #: [id number] Physician: Jordan Yuan DO Financial #: [id number] Pt. Type: O Room/Bed: [facility] Admit/Disch: 04/06/23 06:09:55 - Institution: Case Times [...] 08:04 Cate Gonsales RN 04/07/23 08:05 Normal [facility] Patient Education - Texton 0 04-07-2023 Patient Education - Text [place], [place] [facility] DISCHARGE INSTRUCTIONS: SHOULDER REPLACEMENT [...] of persistent vomiting. Jordan Yuan, [facility] [address] [place] [address] Reviewed: Normal [facility] Preoperative Documentson Preoperative Documents [id number]#[id number]:127 Normal [facility] Progress Note-Physicianon Progress Note-Physician Patient: [...] Pressure 63 mmHg SpO2 94 % Normal [facility] Comment on above: Result Comment: Elec tronically Signed By: Jordan Yuan DO\.br\Date and Time Signed: 04/07/23 07:40 EDT eGFRon 04-07-2023 GFR/1.73 sq M.predicted among non-blacks MDRD (S/P/Bld) [Vol rate/Area] 72 mL/min/1.73 m2 Normal >=59 [facility] Comment on above: Order Comment: Order added by Discern Expert. Result Comment: Manufacturing Process Engineer dina kidney disease could be indicated at eGFR's of less than 60 mL/min/1.73m2. Kidney failure is indicated at less than 15 mL/min/1.73m2. Performed By: #### 2 118731, 4326926, 6668619, 3821785, 72739394, 3068676 ####[facility] [address] [address] ABO/Rhon 04-06-2023 ABO/Rh Positive Invalid Interpretation Code [facility] Comment on above: Performed By: #### 1 4301590, 79005844, 91145831, 0823401 ####[facility] [address] [place] [address] ABO/Rh History Checkon 04-06 ABO/Rh History Check Verified Hx Blood Type Normal [facility] Comment on above: Performed By: #### 1 1186453, 72463080, 71962813, 1066590 ####[facility] [address] [place] [address] ABSCon 04-06-2023 ABSC Gel Interp Negative Normal [facility] Comment on above: Performed By: #### 1 0037419, 54605013, 91063257, 3071305 ####[facility] [address] [place] [address] BLOOD BANKOrdered By: Andra Nunez on 04-06-2023 ABO/Rh Interp Positive Invalid Interpretation Code [facility] BB Subsection ABSC Gel Interp Negative (04/06/23 7:23 AM) Normal [facility] BB Subsection Blood Bank ID#on 04-06-2023 BBID# [id number] Invalid Interpretation Code [facility] Comment on above: Performed By: #### 1 0108371, 12094310, 30173438, 1760124 ####[facility] [address] [place] [address] Consent for Treatmenton 03-12 Consent for Treatment [id number]#1.00CD:127 Normal [facility] H&P Updateon 04-06-2023 H&P Update [id number]#1.00CD:127 Normal [facility] Insurance Correspondence Off iceon 04-06-2023 Insurance Correspondence Office [id number]#1.00CD:127 Normal [facility] Main OR Preoperative Recordo n 04-06-2023 Main OR Preoperative Record PreOp Document Type FT Summary Primary Physician: Jordan Yuan DO Finalized Date/Time: 04/06/23 09:32:24 Pt. Name: RADHA ZAIDI/Sex: 1960 Female Med Rec #: [id number] Physician: Jordan Yuan DO Financial #: [id number] Pt. Type: A Room/Bed: Admit/Disch: 04/06/23 06:09:55 [...] By: Dennis Goldman RN 04/06/23 09:32 Normal [facility] Monitor Recordon 04-06-2023 Monitor Record [id number]#1.00CD:127 Normal [facility] Monitor Record [id number]#1.00CD:127 Normal [facility] Monitor Record [id number]#1.00CD:127 Normal [facility] Operative Reporton 3 Operative Report Patient: ELIZABET ZAIDI Age: 62 years Sex: Female : 1960 Associated Diagnoses: None Author: Jordan Yuan DO DATE OF SURGERY: 04/06/2023 SURGEON: Jordan Yuan D.O. MILLWRIGHT APPRENTICE: Anival Flores CFA PREOPERATIVE DIAGNOSIS: Massive rotator [...] 3. size +6 humeral insert 4. Revers [place] size 9 stem with 36 (neutral) Suturecup OPERATIVE INDICATIONS: Radha is a 62-year-old ndyqw-ploi-ebjpynej female who has had persistent right shoulder [...] and intraoperative instrumentation were performed with the [employer] software. PROCEDURE: The correct operative site was [...] The depth-stop (more content not included)... Normal [facility] Comment on above: Result Comment: [...] The patient tolerated the procedure as expected. [facility] Comment on above: Result Comment: Elec tronically Signed By: Yanick Rai DO\.br\Date and Time Signed: 04/06/23 08:44 EDT Progress Note-Physicianon Progress Note-Physician Patient: RADHA ZAIDI Age: 62 years Sex: Female : 1960 Associated Diagnoses: None Author: Yanick Rai DO Postoperative Information Postoperative disposition: Postoperative disposition: To PACU. Optimetrix number: Optimetrix number [id number]. Anesthetic utilized: General. Regional: Interscalene Block. Health [...] pain, # 60 cap(s), Refills(s) 0, Pharmacy: [facility]/pharmacy #6177, 160, cm, 03/25/23 6:16:00 EDT, Height/Length Dos (more content not included)... 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 Family History: Primary malignant neoplasm of prostate Father Acute myocardial infarction Mother Procedure history: Cervical laminectomy (9762679096). Amputation of finger (011153933). Removal of lung, Partial (78644). Open reduction and internal fixation of fracture Leg (167626870). Foot surgery (4151237321). Lumbar discectomy (147816918). Social History Social & Psychosocial Habits Alcohol [...] to auscultation. (more content not included)... Normal [facility] Comment on above: Result Comment: [...] Gigi Suazo DO Transcribed by: DANISHA Technologist: DPR Technical Comments Radiation Dose: Ka,r in mGy = na DAP = na [facility] Consent for Procedure/Surger yon 04-05-2023 Consent for Procedure/Surgery [id number]#[id number]:127 Normal [facility] CT Upper Extremity w/o Contr [...] DO Transcribed by: DANISHA Technologist: CONSTANTINO Normal [facility] ABO/Rh Retypeon 03-24-2023 ABO/Rh Retype Interp Positive Invalid Interpretation Code [facility] Comment on above: Performed By: #### 1 [id number] ####[facility] [address] [place] [address] BLOOD BANKOrdered By: Andra Longoria on 03-24-2023 ABO/Rh Retype Interp Positive Invalid Interpretation Code [facility] BB Subsection BUNon 03-24-2023 Urea nitrogen [Mass/Vol] 28 mg/dL High 5-21 [facility] Comment on above: Performed By: #### 1 7896115, 5738815, 8621666, 0196096, 8927101, 4220103 ####[facility] [address] [place] [address] CBC w/Indiceson 03-24-2023 Erythrocyte distribution width (RBC) [Ratio] 14.5 % High 10.9-14.2 [facility] Comment on above: Performed By: #### 1 0056748, 6299453, 2423912, 0801279, 1898278, 7311240 ####[facility] [address] [place] [address] Hematocrit (Bld) [Volume fraction] 35.9 % Normal 34.0-46.0 [facility] Comment on above: Performed By: #### 1 [id number], 2446699, 0718372, 3211224, 9323994, 2938612 ####[facility] [address] [place] [address] Hemoglobin (Bld) [Mass/Vol] 11.9 g/dL Low 12.0-16.0 [facility] Comment on above: Performed By: #### 1 [id number], 4249360, 5552136, 0070969, 3189403, 6567697 ####[address] [place] [address] MCH (RBC) [Entitic mass] 32.3 pg Normal 27.0-34.0 [facility] Comment on above: Performed By: #### 1 [id number], 2788145, 8936522, 2086251, 2421208, 9727551 ####[facility] [address] [place] [address] MCHC (RBC) [Mass/Vol] 33.1 g/dL Normal 31.4-36.0 [facility] Comment on above: Performed By: #### 1 [id number], 4393071, 0768576, 7462416, 1690981, 2915407 ####[address] [place] [address] MCV (RBC) [Entitic vol] 97.4 fL Normal 80.0-100.0 [facility] Comment on above: Performed By: #### 1 9543844, 7973578, 1813839, 0743735, 6394392, 9486506 ####[facility] [address] [place] [address] Platelet mean volume (Bld) [Entitic vol] 7.4 fL Normal 6.4-10.8 [facility] Comment on above: Performed By: #### 1 7528025, 5961119, 9566430, 1568978, 2962167, 4485338 ####[facility] [address] [place] [address] Platelets (Bld) [#/Vol] 207.0 E9/L Normal 150.0-500.0 [facility] Comment on above: Performed By: #### 1 1894518, 3595491, 1094683, 0467908, 5939670, 0597424 ####[facility] [address] [place] [address] RBC (Bld) [#/Vol] 3.7 E12/L Low 4.3-5.9 [facility] Comment on above: Performed By: #### 1 9865354, 7395004, 5887603, 3542412, 1653172, 6285074 ####[facility] [address] [place] [address] WBC corrected for nucl RBC Auto (Bld) [#/Vol] 3.5 E9/L Low 4.0-11.0 [facility] Comment on above: Performed By: #### 1 6360353, 1921746, 1233114, 2739360, 8330780, 1476119 ####[facility] [address] [place] [address] CHEMISTRYOrdered By: SYSTEM SYSTEM on 03-24-2023 Anion gap [Moles/Vol] 12 mmol/L Normal 6 - 16 mEq/L [facility] Remisol Chloride [Moles/Vol] 111 mmol/L Normal 101 - 111 mmol/L [facility] Remisol CO2 [Moles/Vol] 20 mmol/L Low 21 - 31 mmol/L [facility] Remisol Creatinine [Mass/Vol] 1.2 mg/dL Normal 0.5 - 1.3 mg/dL [facility] Remisol GFR/1.73 sq M.predicted among non-blacks MDRD (S/P/Bld) [Vol rate/Area] 51 mL/min/1.73 m2 Low >=59mL/min/ 1.73 m2 [facility] Chem S Glucose [Mass/Vol] 84 mg/dL Normal 55 - 199 mg/dL [facility] Remisol Potassium [Moles/Vol] 4.2 mmol/L Normal 3.5 - 5.3 mmol/L [facility] Remisol Sodium [Moles/Vol] 139 mmol/L Normal 135 - 145 mmol/L [facility] Remisol Urea nitrogen [Mass/Vol] 28 mg/dL High 5 - 21 mg/dL [facility] Remisol Consent for Treatmenton 03-11 Consent for Treatment [id number]:127 Normal [facility] Creatinineon 03-24-2023 Creatinine [Mass/Vol] 1.2 mg/dL Normal 0.5-1.3 [facility] Comment on above: Performed By: #### 1 1263847, 7128492, 3100096, 8609981, 6499716, 0681790 ####[facility] [address] [place] [address] Glucoseon 03-24-2023 Glucose [Mass/Vol] 84 mg/dL Normal 55-199 [facility] Comment on above: Performed By: #### 1 1885739, 9910960, 4251588, 0107961, 9430039, 7857754 ####[facility] [address] [place] [address] HEMATOLOGYOrdered By: Andra Longoria on 03-24-2023 Erythrocyte distribution width (RBC) [Ratio] 14.5 % High 10.9 - 14.2 % [facility] HemeAutoSS Hematocrit (Bld) [Volume fraction] 35.9 % Normal 34.0 - 46.0 % [facility] HemeAutoSS Hemoglobin (Bld) [Mass/Vol] 11.9 g/dL Low [...] 207.0 E9/L Normal 150.0 - 500.0 E9/L [facility] HemeAutoSS RBC (Bld) [#/Vol] 3.7 E12/L Low 4.3 - 5.9 E12/L [facility] HemeAutoSS WBC corrected for nucl RBC Auto (Bld) [#/Vol] 3.5 E9/L Low 4.0 - 11.0 E9/L [facility] HemeAutoSS Lyteson 03-24-2023 Anion gap [Moles/Vol] 12 mmol/L Normal 6-16 [facility] Comment on above: Performed By: #### 1 5749730, 8997766, 8050376, 6123032, 8198493, 1025229 ####[facility] [address] [place] [address] Chloride [Moles/Vol] 111 mmol/L Normal 101-111 [facility] Comment on above: Performed By: #### 1 8846736, 2317034, 6353288, 2963162, 6840535, 1866064 ####[facility] [address] [place] [address] CO2 [Moles/Vol] 20 mmol/L Low 21-31 [facility] Comment on above: Performed By: #### 1 1213021, 8011403, 3277060, 1293177, 1834231, 2703853 ####[facility] [address] [place] [address] Potassium [Moles/Vol] 4.2 mmol/L Normal 3.5-5.3 [facility] Comment on above: Performed By: #### 1 1185483, 4349891, 1446045, 5942709, 8478989, 3851135 ####[facility] [address] [place] [address] Sodium [Moles/Vol] 139 mmol/L Normal 135-145 [facility] Comment on above: Performed By: #### 1 6868539, 7588656, 3971655, 0748290, 5651356, 3686723 ####[facility] [address] [place] [address] UA With Cult Reflexon 2022 Bilirubin Ql (U) Negative Normal Negative [facility] Comment on above: Performed By: #### 1 0856890 #### [facility] [address] [place] [address] Clarity (U) CLEAR Normal Clear [facility] Comment on above: Performed By: #### 1 5989069 #### [facility] [address] [place] [address] Color (U) YELLOW Normal Yellow [facility] Comment on above: Performed By: #### 1 3271690 #### [facility] [address] [place] [address] Epithelial cells.squamous LM.HPF (Urine sed) [#/Area] 0-2 Normal 0-2 [facility] Comment on above: Performed By: #### 1 9031221 #### [facility] [address] [place] [address] Fine Granular Casts LM Ql (Urine sed) 0-3 Normal [facility] Comment on above: Performed By: #### 1 8296973 #### [facility] [address] [place] [address] Glucose Test strip (U) [Mass/Vol] Negative Normal Negative [facility] Comment on above: Performed By: #### 1 4948208 #### [facility] [address] [place] [address] Hemoglobin Ql (U) Negative Normal Negative [facility] Comment on above: Performed By: #### 1 0031077 #### [facility] [address] [place] [address] Ketones (U) [Mass/Vol] Negative Normal Negative [facility] Comment on above: Performed By: #### 1 [id number] #### [facility] [address] [place] [address] [place].plasma/Lith ium.RBC (Bld) [Mass ratio] 0-3 Normal 0-3 [facility] Comment on above: Performed By: #### 1 3349419 #### [facility] [address] [place] [address] Mucus Ql (Urine sed) TRACE Normal [facility] Comment on above: Performed By: #### 1 3733245 #### [facility] [address] [place] [address] Nitrite Ql (U) Negative Normal Negative [facility] Comment on above: Performed By: #### 1 8585391 #### [facility] [address] [place] [address] pH (U) 6.0 [pH] Invalid Interpretation Code 5.0-9.0 [facility] Comment on above: Performed By: #### 1 5343573 #### [facility] [address] [place] [address] Protein (U) [Mass/Vol] Negative Normal Negative [facility] Comment on above: Performed By: #### 1 7812684 #### [facility] [address] [place] [address] Specific gravity (U) [Rel density] >=1.030 Invalid Interpretation Code 1.005-1.030 [facility] Comment on above: Performed By: #### 1 7026783 #### [facility] [address] [place] [address] Type of Urine collection method Clean Catch Normal [facility] Comment on above: Performed By: #### 1 9038991 #### [facility] [address] [place] [address] Urobilinogen Qn (U) 0.2 {Rajwinder'U}/dL Normal 0.0-1.0 [facility] Comment on above: Performed By: #### 1 2900416 #### [facility] [address] [place] [address] WBC Auto Ql (U) Negative Normal Negative [facility] Comment on above: Performed By: #### 1 7112049 #### [facility] [address] [place] [address] WBC LM.HPF (Urine sed) [#/Area] 0-5 Normal 0-5 [facility] Comment on above: Performed By: #### 1 9629671 #### [facility] [address] [place] [address] URINALYSISOrdered By: Indira calix on 03-24-2023 Bilirubin [...] PM) Normal Negative [facility] UA Auto SS [place].plasma/Lith ium.RBC (Bld) [Mass ratio] 0-3 /HPF Normal [...] [facility] UA Auto SS Urobilinogen Qn (U) 0.9795432 {Rajwinder'U}/dL Normal 0.0 - 1.0 EU/dL [facility] UA Auto SS WBC Auto Ql (U) Negative (03/24/23 3:05 PM) Normal Negative [facility] UA Auto SS WBC LM.HPF (Urine sed) [#/Area] 0-5 /HPF Normal 0-5/HPF [facility] UA Auto SS XR [...] (Electronic Signature): 03/24/2023 3:30 pm Signed by: Jayosn Kemp M.D. Transcribed by: DANISHA Technologist: CONSTANTINO Technical Comments Radiation Dose: Ka,r in mGy = na DAP = na Normal [facility] eGFRon 03-24-2023 GFR/1.73 sq M.predicted among non-blacks MDRD (S/P/Bld) [Vol rate/Area] 51 mL/min/1.73 m2 Low >=59 [facility] Comment on above: Order Comment: Order added by Discern Expert. Result Comment: Manufacturing Process Engineer dina kidney disease could be indicated at eGFR's of less than 60 mL/min/1.73m2. Kidney failure is indicated at less than 15 mL/min/1.73m2. Performed By: #### 1 [id number], 4373949, 3678431, 3797512, 3613567, 7329221 ####[facility] [address] [place] [address] Physician Orderon 03-23-2023 Physician Order [id number]:127 Normal [facility] XR SHOULDER RT 2V or [...] VANDANA YUAN Date: 2022-10-07 22:08 Normal [facility] CBC AUTO DIFFon 09-16-2022 BASO # 0.0 103/ul Normal 0.0-0.1 [facility] Comment on above: Performed By: #### C BC ####[facility] [address] [address]Dr. Kellengregory Alvarado Basophils/100 WBC (Bld) 0.5 % Normal 0.2-2.0 [facility] Comment on above: Performed By: #### C BC ####[facility] [address] [place], [place] [address]Dr. Andrade Alvarado EO # 0.1 103/ul Normal 0.0-0.7 [facility] Comment on above: Performed By: #### C BC ####[facility] [address] [place], [place] [address]Dr. Andrade Alvarado Eosinophils/100 WBC (Bld) 2.3 % Normal 0.9-7.0 [facility] Comment on above: Performed By: #### C BC ####[facility] [address] [place], [place] [address]Dr. Kellengregory Alvarado Erythrocyte distribution width (RBC) [Ratio] 13.7 % Normal 11.0-15.0 [facility] Comment on above: Performed By: #### C BC ####[facility] [address] [address]Dr. Andrade Alvarado Hematocrit (Bld) [Volume fraction] 32.8 % Critically low 36.0-48.0 [facility] Comment on above: Performed By: #### C BC ####[facility] [address] [address]Dr. Andrade Alvarado Hemoglobin (Bld) [Mass/Vol] 10.9 g/dL Critically low 12.0-16.0 [facility] Comment on above: Performed By: #### C BC ####[facility] [address] [place], [place] [address]Dr. Andrade Alvarado IG # 0.02 10e3/ul Normal 0.00-0.03 [facility] Comment on above: Performed By: #### C BC ####[facility] [address] [place], [place] [address]Dr. Andrade Alvarado IG % 0.5 % Normal 0.0-0.5 [facility] Comment on above: Performed By: #### C BC ####[facility] [address] [place], [place] [address]Dr. Andrade Alvarado LYMPH # 1.6 103/ul Normal 1.2-3.8 [facility] Comment on above: Performed By: #### C BC ####[facility] [address] [place], [place] [address]Dr. Andrade Alvarado Lymphocytes/100 WBC (Bld) 41.8 % Normal 20.5-60.0 [facility] Comment on above: Performed By: #### C BC ####[facility] [address] [place], [place] [address]Dr. Andrade Alvarado MANUAL DIFF REQ NO Normal [facility] Comment on above: Performed By: #### C BC ####[facility] [address] [place], [place] [address]Dr. Andrade Alvarado MCH (RBC) [Entitic mass] 31.9 pg Normal 26.7-34.0 [facility] Comment on above: Performed By: #### C BC ####[facility] [id number]. Andrade Alvarado MCHC (RBC) [Mass/Vol] 33.2 g/dL Normal 29.9-35.2 [facility] Comment on above: Performed By: #### C BC ####[facility] [id number]. Andrade Alvarado MCV (RBC) [Entitic vol] 95.9 fL Normal 81.0-99.0 [facility] Comment on above: Performed By: #### C BC ####[facility] [address] [place], [place] [address]Dr. Andrade Alvarado MONO # 0.5 103/ul Normal 0.3-0.8 [facility] Comment on above: Performed By: #### C BC ####[facility] [address] [place], [place] [address]Dr. Andrade Alvarado Monocytes/100 WBC (Bld) 13.1 % Critically high 1.7-12.0 [facility] Comment on above: Performed By: #### C BC ####[facility] [address] [place], [place] [address]Dr. Kellengregory Alvarado NEUT # 1.6 103/ul Normal 1.4-6.5 [facility] Comment on above: Performed By: #### C BC ####[facility] [address] [place], [place] [address]Dr. Andrade Alvarado Neutrophils/100 WBC (Bld) 41.8 % Critically low 43.0-75.0 [facility] Comment on above: Performed By: #### C BC ####[facility] [address] [place], [place] [address]Dr. Andrade Alvarado Platelet mean volume (Bld) [Entitic vol] 8.8 fL Critically low 9.5-13.5 [facility] Comment on above: Performed By: #### C BC ####[facility] [address] [place], [place] [address]Dr. Anrdade Alvarado PLT 219 103/ul Normal 150-450 [facility] Comment on above: Performed By: #### C BC ####[facility] [address] [place], [place] [address]NfMehreen Alvarado RBC 3.42 106/ul Critically low 4.20-5.40 [facility] Comment on above: Performed By: #### C BC ####[facility] [address] [place], [place] [address]ShMehreen Alvarado WBC 3.9 103/ul Critically low 4.0-11.[address] [facility] Comment on above: Performed By: #### C BC ####[facility] [id number]. Andrade Alvarado FERRITINon 09-16-2022 Ferritin [Mass/Vol] 292.0 ng/mL Critically high 8.0-252.0 [facility] Comment on above: Performed By: #### F ERR, B12FOL, FETIBC #### [facility] [address] [address] [address] Andrade Alvarado IRON AND TIBCon 09-16-2022 % SATURATION 76.2 % Normal [facility] Comment on above: Performed By: #### F ERR, B12FOL, FETIBC #### [facility] [address] [address] [address] Andrade Alvarado Iron [Mass/Vol] 259.0 ug/dL Critically high 50.0-170.0 [facility] Comment on above: Performed By: #### F ERR, B12FOL, FETIBC #### [facility] [address] [address] [address] Andrade Alvarado TIBC DIRECT 340.0 ug/dL Normal 250.0-450.0 [facility] Comment on above: Performed By: #### F ERR, B12FOL, FETIBC #### [facility] [address] [address] [address] Andrade Alvarado PROF 14(COMP METB)on 023 Albumin [Mass/Vol] 4.0 g/dL Normal 3.4-5.0 [facility] Comment on above: Performed By: #### C MP ####[facility] [address] [address]Dr. Andrade Christiano Albumin/Globulin [Mass ratio] 1.3 {ratio} Normal [facility] Comment on above: Performed By: #### C MP ####[facility] [address] [address]Dr. Andrade Christiano ALP [Catalytic activity/Vol] 47 U/L Normal 46-116 [facility] Comment on above: Performed By: #### C MP ####[facility] [address] [place], [place] [address]Dr. Kellengregory Alvarado ALT [Catalytic activity/Vol] 23 U/L Normal 14-59 [facility] Comment on above: Performed By: #### C MP ####[facility] [address] [place], [place] [address]Dr. Andrade Alvarado Anion gap [Moles/Vol] 12.1 mmol/L Normal [facility] Comment on above: Performed By: #### C MP ####[facility] [address] [place], [place] [address]Dr. Kellengregory Alvarado AST [Catalytic activity/Vol] 23 U/L Normal 15-37 [facility] Comment on above: Performed By: #### C MP ####[facility] [address] [place], [place] [address]Dr. Andrade Alvarado Bilirubin [Mass/Vol] 0.4 mg/dL Normal 0.2-1.0 [facility] Comment on above: Performed By: #### C MP ####[facility] [address] [place], [place] [address]Dr. Andrade Alvarado Calcium [Mass/Vol] 9.3 mg/dL Normal 8.5-10.1 [facility] Comment on above: Performed By: #### C MP ####[facility] [address] [place], [place] [address]Dr. Andrade Alvarado Chloride [Moles/Vol] 108 mmol/L Critically high 98-107 [facility] Comment on above: Performed By: #### C MP ####[facility] [address] [place], [place] [address]Dr. Andrade Alvarado CO2 [Moles/Vol] 26.9 mmol/L Normal 21.0-32.0 [facility] Comment on above: Performed By: #### C MP ####[facility] [address] [place] [id number]. Andrade Alvarado Creatinine [Mass/Vol] 0.87 mg/dL Normal 0.55-1.02 [facility] Comment on above: Performed By: #### C MP ####[facility] [address] [place] [id number]. Andrade Alvarado EGFR-AF KITTITIAN >60 Normal >=60 [facility] Comment on above: Performed By: #### C MP ####[facility] [address] [place] [address]Dr. Andrade Christiano EGFR-NON AF KITTITIAN >60 Normal >=60 [facility] Comment on above: Performed By: #### C MP ####[facility] [address] [place] [address]Dr. Andrade Christiano Globulin (S) [Mass/Vol] 3.0 g/dL Normal [facility] Comment on above: Performed By: #### C MP ####[facility] [address] [place] [address]Dr. Andrade Christiano Glucose [Mass/Vol] 102 mg/dL Normal 74-106 [facility] Comment on above: Performed By: #### C MP ####[facility] [address] [place] [address]Dr. Andrade Christiano Potassium [Moles/Vol] 4.0 mmol/L Normal 3.5-5.1 [facility] Comment on above: Performed By: #### C MP ####[facility] [address] [place], [place] [address]Dr. Andrade Christiano Protein [Mass/Vol] 7.0 g/dL Normal 6.4-8.2 [facility] Comment on above: Performed By: #### C MP ####[facility] [address] [place] [id number]. Andrade Christiano Sodium [Moles/Vol] 143 mmol/L Normal 136-145 [facility] Comment on above: Performed By: #### C MP ####[facility] [address] [place] [address]Dr. Andrade Alvraado Urea nitrogen [Mass/Vol] 25.0 mg/dL Critically high 7.0-18.0 [facility] Comment on above: Performed By: #### C MP ####[facility] [address] [place] [address]DreMhreen Alvarado Urea nitrogen/Creatinine [Mass ratio] 28.7 mg/mg Normal [facility] Comment on above: Performed By: #### C MP ####[facility] [address] [place] [address]DrMehreen Alvarado SED RATE WESTERGRENon 2022 SED RATE 11 mm/hr Normal <=30 [facility] Comment on above: Performed By: #### S EDR ####[facility] [address] [place] [address]DrMehreen Alvarado VIT B12 AND FOLATEon 023 Cobalamin (Vitamin B12) [Mass/Vol] 249.0 pg/mL Normal 193.0-986.0 [facility] Comment on above: Performed By: #### F ERR, B12FOL, FETIBC #### [facility] [address] [address] [address] Andrade Alvarado FOLATE 14.00 ng/mL Normal 8.60-58.90 [facility] Comment on above: Performed By: #### F ERR, B12FOL, FETIBC #### [facility] [address] [address] [address] Andrade Alvarado MG MAMM SCREEN 3D BRENNA CADon 2022 MG MAMM SCREEN 3D BRENNA CAD Patient: RADHA ZAIDI Exam Date: 2022 : 1960 Gender:F Ordering : DR JOHN ASHBY D.O. Admission #: [id number] Family : Order #: [id number] CLICK HERE TO VIEW EXAM RADIOLOGY REPORT [...] prostate cancer at age 72. LOCATION: [facility] BREAST COMPOSITION: Scattered areas fibroglandular density. [...] M.D. on 06/09/2022 at 15:30 Normal The [facility] CBC AUTO DIFFon 05-20-2022 BASO # 0.0 103/ul Normal 0.0-0.1 [facility] Comment on above: Performed By: #### C BC ####[facility] [address] [place] [address]Dr. Andrade Alvarado Basophils/100 WBC (Bld) 1.0 % Normal 0.2-2.0 The [facility] Comment on above: Performed By: #### C BC ####[facility] [address]uds[address] [place] [id number]. Andrade Alvarado EO # 0.1 103/ul Normal 0.0-0.7 The [facility] Comment on above: Performed By: #### C BC ####[facility] Yixhinbjgd8[address] [place] [id number] Alvarado Eosinophils/100 WBC (Bld) 2.5 % Normal 0.9-7.0 The [facility] Comment on above: Performed By: #### C BC ####[facility] [address]fvf[address] [place] [id number] Alvarado Erythrocyte distribution width (RBC) [Ratio] 13.0 % Normal 11.0-15.0 The [facility] Comment on above: Performed By: #### C BC ####[facility] [address]wtpqum[address] [place] [address]Dr. Andrade Alvarado Hematocrit (Bld) [Volume fraction] 34.9 % Critically low 36.0-48.0 [facility] Comment on above: Performed By: #### C BC ####[facility] [address]ubprzfzu4[address] [place] [address]DrMehreen Andrade Christiano Hemoglobin (Bld) [Mass/Vol] 11.6 g/dL Critically low 12.0-16.0 [facility] Comment on above: Performed By: #### C BC ####[facility] [address] [place], [place] [address]DrMehreen Alvarado IG # 0.02 10e3/ul Normal 0.00-0.03 [facility] Comment on above: Performed By: #### C BC ####[facility] Cl[address]ajuegut[address] [place], [place] [address]Dr. Andrade Alvarado IG % 0.5 % Normal 0.0-0.5 [facility] Comment on above: Performed By: #### C BC ####[facility] U[address] [place], [place] [address]DrMehreen Alvarado LYMPH # 1.9 103/ul Normal 1.2-3.8 [facility] Comment on above: Performed By: #### C BC ####[facility] [address]usrchgi[address] [place], [place] [address]DrMehreen Alvarado Lymphocytes/100 WBC (Bld) 46.1 % Normal 20.5-60.0 The [facility] Comment on above: Performed By: #### C BC ####[facility] Wtqi[address] [place], [place] [address]DrMehreen Alvarado MANUAL DIFF REQ NO Normal [facility] Comment on above: Performed By: #### C BC ####[facility] Zc[address]hzkrtt[address] [place] [address]Dr. Andrade Alvarado MCH (RBC) [Entitic mass] 32.3 pg Normal 26.7-34.0 [facility] Comment on above: Performed By: #### C BC ####[facility] Dwbgsztolr63[address] [place] [id number]. Andrade Alvarado MCHC (RBC) [Mass/Vol] 33.2 g/dL Normal 29.9-35.2 The [facility] Comment on above: Performed By: #### C BC ####[facility] Zhwtocifap9[address] [place] [id number]. Andrade Christiano MCV (RBC) [Entitic vol] 97.2 fL Normal 81.0-99.0 [facility] Comment on above: Performed By: #### C BC ####[facility] Sgwrghesen[address] [place], [place] [address]Dr. Kellengregory Alvarado MONO # 0.5 103/ul Normal 0.3-0.8 The [facility] Comment on above: Performed By: #### C BC ####[facility] Exvfsrvetp[address] [place], [place] [address]Dr. Andrade Alvarado Monocytes/100 WBC (Bld) 13.5 % Critically high 1.7-12.0 [facility] Comment on above: Performed By: #### C BC ####[facility] Gkpvkytusc[address] [place], [place] [address]Dr. Kellengregory Alvarado NEUT # 1.5 103/ul Normal 1.4-6.5 The [facility] Comment on above: Performed By: #### C BC ####[facility] S[address]gesm[address]qs[address] [place], [place] [address]Dr. Andrade Alvarado Neutrophils/100 WBC (Bld) 36.4 % Critically low 43.0-75.0 The [facility] Comment on above: Performed By: #### C BC ####[facility] Im[address]clnp[address] [place], [place] [address]DrMehreen Alvarado Platelet mean volume (Bld) [Entitic vol] 8.9 fL Critically low 9.5-13.5 The [facility] Comment on above: Performed By: #### C BC ####[facility] Z[address] [place], [place] [id number]. Andrade Alvarado PLT 237 103/ul Normal 150-450 [facility] Comment on above: Performed By: #### C BC ####[facility] Lmfraacear[address] [place] [id number]. Andrade Alvarado RBC 3.59 106/ul Critically low 4.20-5.40 [facility] Comment on above: Performed By: #### C BC ####[facility] Istttoauya5[address] [place] [id number] Alvarado WBC 4.0 103/ul Normal 4.0-11.0 [facility] Comment on above: Performed By: #### C BC ####[facility] Fpdlfyzxeb16[address] [place] [phone]. Andrade Alvarado CRPon 05-20-2022 CRP [Mass/Vol] mg/L Normal <=1.0 [facility] Comment on above: Performed By: #### C MP, CRP, TSH ####[facility] [address]revm[address] [place] [address]Dr. Andrade Alvarado PROF 14(COMP METB)on 022 Albumin [Mass/Vol] 4.2 g/dL Normal 3.4-5.0 [facility] Comment on above: Performed By: #### C MP, CRP, TSH #### [facility] [address] [place] [address] [address] Andrade Alvarado Albumin/Globulin [Mass ratio] 1.3 {ratio} Normal [facility] Comment on above: Performed By: #### C MP, CRP, TSH #### [facility] [address] [place] [address] [address] Andrade Alvarado ALP [Catalytic activity/Vol] 50 U/L Normal 46-116 The [facility] Comment on above: Performed By: #### C MP, CRP, TSH #### [facility] [address] [place] [address] [address] Andrade Alvarado ALT [Catalytic activity/Vol] 23 U/L Normal 14-59 The [facility] Comment on above: Performed By: #### C MP, CRP, TSH #### [facility] [address] [place] [address] [address] Andrade Alvarado Anion gap [Moles/Vol] 11.3 mmol/L Normal [facility] Comment on above: Performed By: #### C MP, CRP, TSH #### [facility] [address] [place] [address] [address] Andrade Alvarado AST [Catalytic activity/Vol] 23 U/L Normal 15-37 [facility] Comment on above: Performed By: #### C MP, CRP, TSH #### [facility] [address] [place] [address] [address] Andrade Alvarado Bilirubin [Mass/Vol] 0.5 mg/dL Normal 0.2-1.0 [facility] Comment on above: Performed By: #### C MP, CRP, TSH #### [facility] [address] [place] [address] Dr. Andrade Alvarado Calcium [Mass/Vol] 9.3 mg/dL Normal 8.5-10.1 [facility] Comment on above: Performed By: #### C MP, CRP, TSH #### [facility] [address] [place] [address] Dr. Andrade Alvarado Chloride [Moles/Vol] 104 mmol/L Normal 98-107 The [facility] Comment on above: Performed By: #### C MP, CRP, TSH #### [facility] [address] [place] [address] Dr. Andrade Alvarado CO2 [Moles/Vol] 27.2 mmol/L Normal 21.0-32.0 [facility] Comment on above: Performed By: #### C MP, CRP, TSH #### [facility] [address] [place] [address] Dr. Andrade Alvarado Creatinine [Mass/Vol] 0.99 mg/dL Normal 0.55-1.02 [facility] Comment on above: Performed By: #### C MP, CRP, TSH #### [facility] [address] [place] [address] Dr. Andrade Alvarado EGFR-AF KITTITIAN >60 Normal >=60 [facility] Comment on above: Performed By: #### C MP, CRP, TSH #### [facility] [address] [place] [address] [address] Andrade Alvarado EGFR-NON AF KITTITIAN 57 mL/min/1.73m2 Critically low >=60 The [facility] Comment on above: Performed By: #### C MP, CRP, TSH #### [facility] [address] [place] [address] [address] Andrade Alvarado Globulin (S) [Mass/Vol] 3.3 g/dL Normal [facility] Comment on above: Performed By: #### C MP, CRP, TSH #### [facility] [address] [place] [address] [address] Andrade Alvarado Glucose [Mass/Vol] 97 mg/dL Normal 74-106 [facility] Comment on above: Performed By: #### C MP, CRP, TSH #### [facility] [address] [place] [address] Dr. Andrade Alvarado Potassium [Moles/Vol] 3.5 mmol/L Normal 3.5-5.1 The [facility] Comment on above: Performed By: #### C MP, CRP, TSH #### [facility] [address] [place] [address] [address] Andrade Alvarado Protein [Mass/Vol] 7.5 g/dL Normal 6.4-8.2 [facility] Comment on above: Performed By: #### C MP, CRP, TSH #### [facility] [address] [place] [address] Dr. Andrade Alvarado Sodium [Moles/Vol] 139 mmol/L Normal 136-145 [facility] Comment on above: Performed By: #### C MP, CRP, TSH #### [facility] [address] [place] [address] [address] Andrade Alvarado Urea nitrogen [Mass/Vol] 22.0 mg/dL Critically high 7.0-18.0 [facility] Comment on above: Performed By: #### C MP, CRP, TSH #### [facility] [address] [place] [address] Dr. Andrade Alvarado Urea nitrogen/Creatinine [Mass ratio] 22.2 mg/mg Normal [facility] Comment on above: Performed By: #### C MP, CRP, TSH #### [facility] [address] [place] [address] [address] Andrade Alvarado SED RATE WESTERGRENon 2021 SED RATE 22 mm/hr Normal <=30 [facility] Comment on above: Performed By: #### S EDR ####[facility] [address] [place], [place] [address]Dr. Andrade Alvarado TSHon 05-20-2022 TSH 1.373 uIU/mL Normal 0.358-3.740 [facility] Comment on above: Performed By: #### C MP, CRP, TSH #### [facility] [address] [place] [address] Dr. Andrade Alvarado CBC AUTO DIFFon 02-16-2022 BASO # 0.0 103/ul Normal 0.0-0.1 [facility] Comment on above: Performed By: #### C BC ####[facility] Afbahfzzih[address] [place], [place] [address]DrMehreen Alvarado Basophils/100 WBC (Bld) 0.9 % Normal 0.2-2.0 [facility] Comment on above: Performed By: #### C BC ####[facility] Sjeywkiaeo[address] [place], [place] [address]Dr. Andrade Alvarado EO # 0.1 103/ul Normal 0.0-0.7 [facility] Comment on above: Performed By: #### C BC ####[facility] C[address]klzrkex[address] [place], [place] [address]Dr. Andrade Alvarado Eosinophils/100 WBC (Bld) 2.3 % Normal 0.9-7.0 [facility] Comment on above: Performed By: #### C BC ####[facility] Y[address]frrpesxo[address] [place], [place] [address]DrMehreen Alvarado Erythrocyte distribution width (RBC) [Ratio] 12.6 % Normal 11.0-15.0 [facility] Comment on above: Performed By: #### C BC ####[facility] Cvcsevklol[address] [place], [place] [address]Dr. Andrade Alvarado Hematocrit (Bld) [Volume fraction] 37.8 % Normal 36.0-48.0 [facility] Comment on above: Performed By: #### C BC ####[facility] [address]zuv[address] [place] [address]DrMehreen Andrade Alvarado Hemoglobin (Bld) [Mass/Vol] 12.3 g/dL Normal 12.0-16.0 [facility] Comment on above: Performed By: #### C BC ####[facility] [address]tsqzfa[address] [place], [place] [address]DrMehreen Alvarado IG # 0.02 10e3/ul Normal 0.00-0.03 [facility] Comment on above: Performed By: #### C BC ####[facility] [address]btkxonl[address] [place], [place] [address]DrMehreen Alvarado IG % 0.5 % Normal 0.0-0.5 [facility] Comment on above: Performed By: #### C BC ####[facility] Sdncyrqane8[address] [place], [place] [address]DrMehreen Alvarado LYMPH # 2.1 103/ul Normal 1.2-3.8 The [facility] Comment on above: Performed By: #### C BC ####[facility] Jrnfzlaoun[address] [place], [place] [address]DrMehreen Kellengregory Alvarado Lymphocytes/100 WBC (Bld) 48.3 % Normal 20.5-60.0 [facility] Comment on above: Performed By: #### C BC ####[facility] V[address]bjfpddj[address] [place], [place] [address]DrMehreen Alvarado MANUAL DIFF REQ NO Normal [facility] Comment on above: Performed By: #### C BC ####[facility] U[address]bidbuje[address] [place], [place] [address]DrMehreen Alvarado MCH (RBC) [Entitic mass] 31.9 pg Normal 26.7-34.0 The [facility] Comment on above: Performed By: #### C BC ####[facility] M[address]navhyds[address] [place], [place] [address]DrMehreen Alvarado MCHC (RBC) [Mass/Vol] 32.5 g/dL Normal 29.9-35.2 The [facility] Comment on above: Performed By: #### C BC ####[facility] [address]qfx[address] [place], [place] [address]DrMehreen Alvarado MCV (RBC) [Entitic vol] 97.9 fL Normal 81.0-99.0 The [facility] Comment on above: Performed By: #### C BC ####[facility] Azomtpefxb[address] [place], [place] [address]DrMehreen Alvarado MONO # 0.5 103/ul Normal 0.3-0.8 The [facility] Comment on above: Performed By: #### C BC ####[facility] U[address]fqpoogyq[address] [place], [place] [address]DrMehreen Alvarado Monocytes/100 WBC (Bld) 11.2 % Normal 1.7-12.0 [facility] Comment on above: Performed By: #### C BC ####[facility] Kebgotlkfi[address] [place], [place] [address]DrMehreen Alvarado NEUT # 1.6 103/ul Normal 1.4-6.5 The [facility] Comment on above: Performed By: #### C BC ####[facility] [address]zwwtcrnjb[address] [place], [place] [address]DrMehreen Alvarado Neutrophils/100 WBC (Bld) 36.8 % Critically low 43.0-75.0 [facility] Comment on above: Performed By: #### C BC ####[facility] Ykyxfnfbeh[address] [place], [place] [address]DrMehreen Alvarado Platelet mean volume (Bld) [Entitic vol] 9.9 fL Normal 9.5-13.5 The [facility] Comment on above: Performed By: #### C BC ####[facility] [address]xy[address]vfg[address] [place], [place] [address]DrMehreen Alvarado PLT 213 103/ul Normal 150-450 [facility] Comment on above: Performed By: #### C BC ####[facility] Urnisxajbt8[address] [place], [place] [address]DrMehreen Alvarado RBC 3.86 106/ul Critically low 4.20-5.40 [facility] Comment on above: Performed By: #### C BC ####[facility] [address] [place] [address]Dr. Andrade Alvarado WBC 4.4 103/ul Normal 4.0-11.0 [facility] Comment on above: Performed By: #### C BC ####[facility] [address]ssvbq[address] [place] [address]Dr. Andrade Alvarado PROF 14(COMP METB)on 022 Albumin [Mass/Vol] 4.2 g/dL Normal 3.4-5.0 [facility] Comment on above: Performed By: #### C MP #### [facility] [address] [place] [address] [address] Andrade Alvarado Albumin/Globulin [Mass ratio] 1.3 {ratio} Normal [facility] Comment on above: Performed By: #### C MP #### [facility] [address] [place] [address] [address] Andrade Alvarado ALP [Catalytic activity/Vol] 61 U/L Normal 46-116 The [facility] Comment on above: Performed By: #### C MP #### [facility] [address] [place] [address] [address] Andrade Alvarado ALT [Catalytic activity/Vol] 23 U/L Normal 14-59 [facility] Comment on above: Performed By: #### C MP #### [facility] [address] [place] [address] [address] Andrade Alvarado Anion gap [Moles/Vol] 15.5 mmol/L Normal [facility] Comment on above: Performed By: #### C MP #### [facility] [address] [place] [address] [address] Andrade Alvarado AST [Catalytic activity/Vol] 20 U/L Normal 15-37 The [facility] Comment on above: Performed By: #### C MP #### [facility] [address] [place] [address] [address] Andrade Alvarado Bilirubin [Mass/Vol] 0.5 mg/dL Normal 0.2-1.0 [facility] Comment on above: Performed By: #### C MP #### [facility] [address] [place] [address] [address] Andrade Alvarado Calcium [Mass/Vol] 9.1 mg/dL Normal 8.5-10.1 [facility] Comment on above: Performed By: #### C MP #### [facility] [address] [place] [address] [address] Andrade Alvarado Chloride [Moles/Vol] 106 mmol/L Normal 98-107 [facility] Comment on above: Performed By: #### C MP #### [facility] [address] [place] [address] [address] Andrade Alvarado CO2 [Moles/Vol] 25.6 mmol/L Normal 21.0-32.0 [facility] Comment on above: Performed By: #### C MP #### [facility] [address] [place] [address] Dr. Andrade Alvarado Creatinine [Mass/Vol] 0.97 mg/dL Normal 0.55-1.02 [facility] Comment on above: Performed By: #### C MP #### [facility] [address] [place] [address] Dr. Andrade Alvarado EGFR-AF KITTITIAN >60 Normal >=60 [facility] Comment on above: Performed By: #### C MP #### [facility] [address] [place] [address] [address] Andrade Alvarado EGFR-NON AF KITTITIAN 58 mL/min/1.73m2 Critically low >=60 The [facility] Comment on above: Performed By: #### C MP #### [facility] [address] [place] [address] [address] Andrade Alvarado Globulin (S) [Mass/Vol] 3.2 g/dL Normal [facility] Comment on above: Performed By: #### C MP #### [facility] [address] [place] [address] [address] Andrade Alvarado Glucose [Mass/Vol] 91 mg/dL Normal 74-106 [facility] Comment on above: Performed By: #### C MP #### [facility] [address] [place] [address] [address] Andrade Alvarado Potassium [Moles/Vol] 4.1 mmol/L Normal 3.5-5.1 [facility] Comment on above: Performed By: #### C MP #### [facility] [address] [place] [address] [address] Andrade Alvarado Protein [Mass/Vol] 7.4 g/dL Normal 6.4-8.2 [facility] Comment on above: Performed By: #### C MP #### [facility] [address] [place] [address] [address] Andrade Alvarado Sodium [Moles/Vol] 143 mmol/L Normal 136-145 [facility] Comment on above: Performed By: #### C MP #### [facility] [address] [address] [address] Andrade Alvarado Urea nitrogen [Mass/Vol] 18.0 mg/dL Normal 7.0-18.0 [facility] Comment on above: Performed By: #### C MP #### [facility] [address] [address] [address] Andrade Alvarado Urea nitrogen/Creatinine [Mass ratio] 18.6 mg/mg Normal [facility] Comment on above: Performed By: #### C MP #### [facility] [address] [address] [address] Andrade Alvarado SED RATE [facility] 2021 SED RATE 15 mm/hr Normal <=30 [facility] Comment on above: Performed By: #### S EDR #### [facility] [address] [address] [address] Andrade Alvarado KNEE LEFT 3 Son 04-25-2020 KNEE LEFT 3 S [facility] Department of Radiology [address] [place] [id number] Patient Name: RADHA ZAIDI : 1960 Sex: F Age: Race: White Pt. 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 Electronically signed: Eliezer Cam. Transcribed by: [email or web address], User Resident: Electronically Signed by: ELIEZER CAM @ 04/25/2020 11:44 AM Normal [facility] Comment on above: Order Comment: Evalu ate TIBIA FIBULA LEFTon 03-27-20 20 TIBIA FIBULA LEFT [facility] Department of Radiology [address] [place] [id number] Patient Name: RADHA ZAIDI : 1960 Sex: F Age: Race: White Pt. Location: 84 Patient Status: Ordered Date: 03/27/2020 8:05:00 AM Completed Date: 03/27/2020 08:35 AM Requesting Provider: CHARLI LUKE Attending Provider: Report Copy To: Signs & Symptoms: S82.832A Oth fracture of upper and lower end of left fibula, init I10 History: [place] Comments: , , , Ordering Provider - [...] healing Electronically signed: Crissy Dubon. Transcribed by: [email or web address], User Resident: Electronically Signed by: CRISSY DUBON @ 03/27/2020 09:11 AM Normal [facility] Comment on above: Order Comment: Evalu ate Operative Reporton 0 Operative Report MR#: [id number] S [facility] Pt. Name: Radha Zaidi Room [...] were bluntly retracted. We then used a [place] as well as a hemostat to debride [...] Paniagua MD Date Trans: 03/13/2020 02:26 A/bryson [id number] cc: John Ashby D.O. [address] [place] [address] [place] [address] Normal [facility] KNEE LEFT 1 OR 2 VWSon 03-12 KNEE LEFT 1 OR 2 VWS [facility] Department of Radiology [address] [place] [phone] Patient Name: RADHA ZAIDI : 1960 [...] fracture. Electronically signed: Rahul James. Transcribed by: [email or web address], User Resident: Electronically Signed by: RAHUL JAMES @ 03/12/2020 03:20 PM Normal [facility] Comment on above: Order Comment: Evalu ate POC GLUCOSE LABon 03-12-2020 Glucose [Mass/Vol] 103 mg/dL High 70-100 [facility] Comment on above: Performed By: #### [id number] ####[facility] *MRSA/MSSA DNA NASALon 03-08 *MRSA/MSSA DNA NASAL Clinical Report: (D) Specimen: NASAL SWAB Collected: 03/08/2020 14:02 Status: Final Last Updated: 03/09/2020 09:30 MSSA DNA (Final) Negative MRSA DNA (Final) Negative Normal [facility] Comment on above: Performed By: #### [id number] ####[facility] *SARS-CoV-2 COVID-19on 03-08 [id number] Not Detected Normal Not Detected [facility] Comment on above: Order Comment: The A ptima SARS-CoV-2 assay is a nucleic acid amplification test intended for the qualitative detection of RNA from SARS-CoV-2 isolated and purified from nasopharyngeal (CONSULTING ACTUARY),oropharyngeal (OP), nasal swab, sputum, and bronchoalveolar lavage (BAL) specimens from patients with signs and symptoms of infection who are suspected of COVID-19. Results are for the identification of SARS-CoV-2 RNA. The SARS-CoV-2 RNA is generally detectable during the acute phase of infection. The Aptima SARS-CoV-2 Assay on the Mikado [employer] Fusion system is intended for use by laboratory personnel specifically instructed and trained in the operation of the Mikado [employer] system. The Aptima SARS-CoV-2 assay is [...] information. Performed By: #### 3 1792 #### [facility] [address] APTTon 03-08-2020 aPTT Coag (Bld) [Time] 26.9 s Normal 25.0-35.0 [facility] Comment on above: Result Comment: [...] THIS PURPOSE. Performed By: #### 5 6101, 16881 ####[facility] BASIC METABOLIC PANELon 02-09 Calcium [Mass/Vol] 9.7 mg/dL Normal 8.6-10.3 [facility] Comment on above: Performed By: #### 0 0071 #### [facility] [address] [place] [address], [facility] Chloride [Moles/Vol] 103 mmol/L Normal 98-107 [facility] Comment on above: Performed By: #### 0 0071 #### [facility] [address] [facility] [place] [address], [facility] CO2 [Moles/Vol] 31 mmol/L Normal 21-31 [facility] Comment on above: Performed By: #### 0 0071 #### [facility] [address] [facility] [address], [facility] Creatinine [Mass/Vol] 0.87 mg/dL Normal 0.60-1.20 [facility] Comment on above: Performed By: #### 0 0071 #### [facility] [address] [place] [address], [facility] GFR/1.73 sq M predicted among blacks MDRD (S/P/Bld) [Vol rate/Area] mL/min/{1.73_m2} Normal >60 [facility] Comment on above: Performed By: #### 0 0071 #### [facility] [address] [place] [address], [facility] GFR/1.73 sq M predicted among non-blacks MDRD (S/P/Bld) [Vol rate/Area] mL/min/{1.73_m2} Normal >60 [facility] Comment on above: Performed By: #### 0 0071 #### [facility] [address] [facility] [place] [address], [facility] Glucose [Mass/Vol] 106 mg/dL High 70-100 [facility] Comment on above: Performed By: #### 0 0071 #### [facility] [address] [facility] [place] [address], [facility] Potassium [Moles/Vol] 4.3 mmol/L Normal 3.5-5.1 [facility] Comment on above: Performed By: #### 0 0071 #### [facility] [address] [facility] [place] [address], [facility] Sodium [Moles/Vol] 141 mmol/L Normal 136-145 [facility] Comment on above: Performed By: #### 0 0071 #### [facility] [address] [facility] [place] [address], [facility] Urea nitrogen [Mass/Vol] 14 mg/dL Normal 7-25 [facility] Comment on above: Performed By: #### 0 0071 #### [facility] [address] [facility] [place] [address], [facility] CBC W/DIFFon 03-08-2020 ABS BASOPHILS 0.1 10*3/uL Normal 0.0-0.2 [facility] Comment on above: Performed By: #### 5 0103 ####[facility] [facility] ABS IMM GRANS 0.0 10*3/uL Normal 0.0-0.2 [facility] Comment on above: Performed By: #### 5 0103 ####[facility] ABS NEUTROPHILS 3.4 10*3/uL Normal 1.6-7.6 [facility] Comment on above: Performed By: #### 5 0103 ####[facility] Basophils/100 WBC (Bld) 0.8 % Normal 0.0-1.0 [facility] Comment on above: Performed By: #### 5 0103 ####[facility] Eosinophils (Bld) [#/Vol] 0.7 10*3/uL High 0.0-0.5 [facility] Comment on above: Performed By: #### 5 0103 ####[facility] Eosinophils/100 WBC (Bld) 9.5 % High 0.0-6.0 [facility] Comment on above: Performed By: #### 5 0103 ####[facility] Erythrocyte distribution width (RBC) [Ratio] 13.6 % Normal 11.5-15.0 [facility] Comment on above: Performed By: #### 5 0103 ####[facility] Hematocrit (Bld) [Volume fraction] 42.5 % Normal 36.0-45.0 [facility] Comment on above: Performed By: #### 5 0103 ####[facility] Hemoglobin (Bld) [Mass/Vol] 13.7 g/dL Normal 12.0-15.0 [facility] Comment on above: Performed By: #### 5 0103 ####[facility] IMMATURE GRANS 0.3 % Normal 0.0-1.0 [facility] Comment on above: Performed By: #### 5 0103 ####[facility] Lymphocytes (Bld) [#/Vol] 2.7 10*3/uL Normal 1.2-4.0 [facility] Comment on above: Performed By: #### 5 3 ####[address] Lymphocytes/100 WBC (Bld) 35.1 % Normal 20.0-45.0 [facility] Comment on above: Performed By: #### 3 ####[place] [id number] [address] MCH (RBC) [Entitic mass] 31.2 pg Normal 27.0-33.0 [facility] Comment on above: Performed By: #### 5 3 ####[facility] MCHC (RBC) [Mass/Vol] 32.2 g/dL Normal 32.0-35.0 [facility] Comment on above: Performed By: #### 5 3 ####[address] MCV (RBC) [Entitic vol] 96.8 fL Normal 82.0-98.0 [facility] Comment on above: Performed By: #### 5 3 ####[facility] [place] [address] Monocytes (Bld) [#/Vol] 0.8 10*3/uL Normal 0.1-1.0 [facility] Comment on above: Performed By: #### 5 3 ####[facility] [place] [address], [facility] MONOS 9.8 % Normal 5.0-12.0 [facility] Comment on above: Performed By: #### 5 3 ####[facility] [place] [address], [facility] Neutrophils/100 WBC (Bld) 44.5 % Normal 40.0-72.0 [facility] Comment on above: Performed By: #### 5 102 ####[facility] [facility] [address], [facility] Nucleated RBC/100 WBC (Bld) [Ratio] 0 % Normal 0-0 [facility] Comment on above: Performed By: #### 102 ####[facility] [facility] [address], [facility] PLAT CNT 230 10*3/uL Normal 150-400 [facility] Comment on above: Performed By: #### 5 102 ####[facility] [facility] [address], [facility] RBC (Bld) [#/Vol] 4.39 10*6/uL Normal 3.80-5.00 [facility] Comment on above: Performed By: #### 5 3 ####[facility] [facility] [address], [facility] WBC (Bld) [#/Vol] 7.72 10*3/uL Normal 4.00-10.60 [facility] Comment on above: Performed By: #### 102 ####[facility] [place] [address], [place] PROTHROMBIN TIMEon 0 INR Coag (PPP) [Relative time] 0.99 {INR} Normal 0.91-1.16 [facility] Comment on above: Result Comment: [...] CHEST 1995;108:[id number]. Performed By: #### 5 6101, [id number] #### [facility] [address] [place] [address], [facility] PT Coag (PPP) [Time] 13.1 s Normal 12.3-14.8 [facility] Comment on above: Result Comment: ALL RESULTS MUST BE INTERPRETED WITH RESPECT TO BLOOD DRAWING ARTIFACT OR DILUTION ERROR OF ANTICOAGULANT AT THE TIME OF SAMPLING. Performed By: #### 5 6101, 75529 #### [facility] [address] [place] [address], [facility] ALBUMIN BLOODon 02-04-2020 Albumin [Mass/Vol] 4.5 g/dL Normal 3.5-5.7 [facility] Comment on above: Performed By: #### 3 0728, 16366, 98023, 78949, 57850 #### [facility] [address] [place] [address], [facility] BASIC METABOLIC PANELon 07-2 Calcium [Mass/Vol] 9.5 mg/dL Normal 8.6-10.3 [facility] Comment on above: Performed By: #### 3 0728, 82864, 36071, 00550, 25034 #### [facility] [address] [place] [address], [place] Chloride [Moles/Vol] 105 mmol/L Normal 98-107 [facility] Comment on above: Performed By: #### 3 0728, 87670, 03662, 98331, 30216 #### [facility] [address] [place] [address], [place] CO2 [Moles/Vol] 27 mmol/L Normal 21-31 [facility] Comment on above: Performed By: #### 3 0728, 63783, 07743, 49550, 84458 #### [facility] [address] [place] [address], [place] Creatinine [Mass/Vol] 0.81 mg/dL Normal 0.60-1.20 [facility] Comment on above: Performed By: #### 3 0728, 45790, 55673, 33957, 19614 #### [facility] [address] [place] [address], [place] GFR/1.73 sq M predicted among blacks MDRD (S/P/Bld) [Vol rate/Area] mL/min/{1.73_m2} Normal >60 [facility] Comment on above: Performed By: #### 3 0728, 62878, 26873, 17751, 76442 #### [facility] [address] [place] [address], [place] GFR/1.73 sq M predicted among non-blacks MDRD (S/P/Bld) [Vol rate/Area] mL/min/{1.73_m2} Normal >60 [facility] Comment on above: Performed By: #### 3 0728, 77327, 22891, 52756, 23958 #### [facility] [address] [place] [address], [facility] Glucose [Mass/Vol] 115 mg/dL High 70-100 [facility] Comment on above: Performed By: #### 3 0728, 54338, 89652, 47507, 89652 #### [facility] [address] [place] [address], [facility] Potassium [Moles/Vol] 3.9 mmol/L Normal 3.5-5.1 [facility] Comment on above: Performed By: #### 3 0728, 17818, 06318, 52834, 88812 #### [facility] [address] [place] [address], [facility] Sodium [Moles/Vol] 140 mmol/L Normal 136-145 [facility] Comment on above: Performed By: #### 3 0728, 70752, 50035, 91485, 89809 #### [facility] [address] [facility] [place] [address], [facility] Urea nitrogen [Mass/Vol] 20 mg/dL Normal 7-25 [facility] Comment on above: Performed By: #### 3 0728, 00467, 17366, 82070, 76321 #### [facility] [address] [facility] [place] [address], [facility] PREALBUMINon 02-04-2020 Prealbumin [Mass/Vol] 24.0 mg/dL Normal 17.0-34.0 [facility] Comment on above: Performed By: #### 3 0728, 66817, 86801, 03410, 71827 #### [facility] [address] [facility] [place] [address], [facility] TIBIA FIBULA LEFTon 02-04-20 20 TIBIA FIBULA LEFT [facility] Department of Radiology [address] [place] [id number] Patient Name: RADHA ZAIDI : 1960 Sex: [...] indicated. Electronically signed: Eliezer Randolph. Transcribed by: [email or web address], User Resident: Electronically Signed by: ELIEZER RANDOLPH @ 02/04/2020 10:34 AM Normal [facility] TRANSFERRINon 02-04-2020 Transferrin [Mass/Vol] 270 mg/dL Normal 203-362 [facility] Comment on above: Performed By: #### 3 5334, 57193, 25208, 16157, 55255 #### [facility] [address] [place] [address], [facility] VITAMIN D 25-HYDROXYon 02-03 VITAMIN D 25-OH 38.5 ng/mL Normal 30.0-80.0 [facility] Comment on above: Result Comment: >80. 0 Toxicity possible Performed By: #### 3 0728, 37405, 60859, 95455, 04905 #### [facility] [address] [place] [address], [facility] FLUORO FOR SURGICAL PROCEDUR ESon 10-20-2017 FLUORO FOR SURGICAL PROCEDURES Exam: FLUORO FOR SURGICAL PROCEDURESHistory: ACDF Fusion Findings: Fluoroscopy time was 70 seconds A total of 19 fluoroscopic images were obtained by Dr. Cheng during the anterior cervical discectomy in the lower cervical spine.IMPRESSION: Impression: Fluoroscopic assistance provided for operative guidance.Interpreted by:DIANA Lealigned by:Eugene Cancion MD10/20/inal result Normal [facility] [...] South Erythrocytes (RBC) 4.96 10*6/uL Normal 4.20-5.40 [facility] Hematocrit (HCT) 47.1 % Critically high 37.0-47.0 [...] 10-13-2017 Bilirubin (total) PATIENT: DYAN HERNANDES [id number] : 1960 SEX: FORDERED BY: BASIM CHENG ORDERED : 10/13/2017 12:41 COLLECTED: 10/13/2017 13:24ORDER : [id number] RECEIVED : 10/13/2017 13:24 --TEST NAME RESULT [...] [facility] [place] Urine, color Yellow Normal Straw/[place] [facility] Urine, glucose [...] Time Vital Sign Value Performing Clinician Facility 03-06-2025 09:22040 Body height 165.1 cm John Ball DO Work Phone: [facility] 03-06-2025 09:220400 Body mass index (BMI) [Ratio] 20.5 kg/m2 John Ball DO Work Phone: [facility] 03-06-2025 09:22040 Body weight 55.84 kg John Ball DO Work Phone: [facility] 03-06-2025 09:22-0400 Diastolic blood pressure 84 mm[Hg] John Ball DO Work Phone: [facility] 03-06-2025 09:22-0400 Heart rate 80 /min John Ball DO Work Phone: [facility] 03-06-2025 09:22-0400 Respiratory rate 12 /min John Ball DO Work Phone: [facility] 03-06-2025 09:22-0400 Systolic blood pressure 149 mm[Hg] John Ball DO Work Phone: [facility] 11-06-2024 14:110400 Body height 165.1 cm John Ball DO Work Phone: [facility] 11-06-2024 14:110400 Body mass index (BMI) [Ratio] 22.1 kg/m2 John Ball DO Work Phone: [facility] 11-06-2024 14:110400 Body weight 60.44 kg John Ball DO Work Phone: [facility] 10-04-2024 14:49-0400 Body height 162.6 cm Jordan Yuan DO Work Phone: [facility] 10-04-2024 14:49-0400 Body mass index (BMI) [Ratio] 28.15 kg/m2 Jordan [employer] Work Phone: [facility] 10-04-2024 14:49-0400 Body weight 74.39 kg [employer] Work Phone: [facility] 09-25-2024 10:34-0400 Body height 165.1 cm [facility] 09-25-2024 10:34-0400 Body mass index (BMI) [Ratio] 22.1 kg/m2 [facility] 09-25-2024 10:34-0400 Body weight 60.44 kg [facility] 09-25-2024 10:34-0400 Diastolic blood pressure 86 mm[Hg] [facility] 09-25-2024 10:34-0400 Heart rate 72 /min [facility] 09-25-2024 10:34-0400 Respiratory rate 16 /min [facility] 09-25-2024 10:34-0400 SaO2% (BldA) [Mass fraction] 97 % [facility] 09-25-2024 10:34-0400 Systolic blood pressure 137 mm[Hg] [facility] 09-18-2024 10:17-0400 Body height 162.6 cm [employer] Work Phone: [facility] 09-18-2024 10:17-0400 Body mass index (BMI) [Ratio] 28.15 kg/m2 [employer] Work Phone: [facility] 09-18-2024 10:17-0400 Body weight 74.39 kg Jordan [employer] Work Phone: [facility] 08-29-2024 15:44-0500 Body height 165.1 cm [facility] 08-29-2024 15:44-0500 Body mass index (BMI) [Ratio] 22 kg/m2 [facility] 08-29-2024 15:44-0500 Body weight 60.04 kg [facility] 08-29-2024 15:44-0500 Diastolic blood pressure 54 mm[Hg] [facility] 08-29-2024 15:44-0500 Heart rate 57 /min [facility] 08-29-2024 15:44-0500 Respiratory rate 12 /min [facility] 08-29-2024 15:44-0500 Systolic blood pressure 136 mm[Hg] [facility] 07-17-2024 15:06-0500 Body height 162.6 cm Jordan Brown DO Work Phone: [facility] 07-17-2024 15:06-0500 Body mass index (BMI) [Ratio] 28.15 kg/m2 Jordan Brown DO Work Phone: [facility] 07-17-2024 15:06-0500 Body weight 74.39 kg Jordan Brown DO Work Phone: [facility] 06-05-2024 14:20-0500 Body height 162.6 cm Jordan Brown DO Work Phone: [facility] 06-05-2024 14:20-0500 Body mass index (BMI) [Ratio] 28.15 kg/m2 Jordan Brown DO Work Phone: [facility] 06-05-2024 14:20-0500 Body temperature 97.5 [degF] Jordan Brown DO Work Phone: [facility] 06-05-2024 14:20-0500 Body weight 74.39 kg Jordan Brown DO Work Phone: [facility] 05-08-2024 10:38-0400 Body height 162.6 cm Jordan Brown DO Work Phone: [facility] 05-08-2024 10:38-0400 Body mass index (BMI) [Ratio] 28.15 kg/m2 Jordan Brown DO Work Phone: [facility] 05-08-2024 10:38-0400 Body temperature 97.39 [degF] Jordan Brown DO Work Phone: [facility] 05-08-2024 10:38-0400 Body weight 74.39 kg Jordan Yuan DO Work Phone: [facility] 04-27-2024 13:08-0400 Heart rate 80 /min Jordan Yuan [facility] 04-27-2024 13:08-0400 SaO2% (BldA) [Mass fraction] 94 % Jordan Yuan [facility] 04-27-2024 13:08-0400 Blood Pressure Location Jordan Yuan [facility] 04-27-2024 13:08-0400 Diastolic blood pressure 72 mm[Hg] Jordan Yuan [facility] 04-27-2024 13:08-0400 Mean blood pressure 93 mm[Hg] Jordan Yuan [facility] 04-27-2024 13:08-0400 Systolic blood pressure 136 mm[Hg] Jordan Yuan [facility] 04-27-2024 13:08-0400 Respiratory rate 18 /min Jordan Yuan [facility] 04-27-2024 11:23-0400 Heart rate 72 /min Jordan Yuan [facility] 04-27-2024 11:23-0400 SaO2% (BldA) [Mass fraction] 100 % Jordan Yuan [facility] 04-27-2024 11:22-0400 Blood Pressure Location Jordan Yuan [facility] 04-27-2024 11:22-0400 Diastolic blood pressure 66 mm[Hg] Jordan Yuan [facility] 04-27-2024 11:22-0400 Mean blood pressure 86 mm[Hg] Jordan Yuan [facility] 04-27-2024 11:22-0400 Systolic blood pressure 126 mm[Hg] Jordan Yuan [facility] 04-27-2024 11:22-0400 Respiratory rate 18 /min Jordan Yuan [facility] 04-27-2024 11:15-0400 Blood Pressure Location Jordan Yuan [facility] 04-27-2024 11:15-0400 Body temperature 97.16 [degF] Jordan Yuan [facility] 04-27-2024 11:15-0400 Diastolic blood pressure 62 mm[Hg] Jordan Yuan [facility] 04-27-2024 11:15-0400 Heart rate 79 /min Jordan Yuan [facility] 04-27-2024 11:15-0400 Mean blood pressure 81 mm[Hg] Jordan Yuan [facility] 04-27-2024 11:15-0400 Respiratory rate 20 /min Jordan Yuan [facility] 04-27-2024 11:15-0400 SaO2% (BldA) [Mass fraction] 100 % Jordan Yuan [facility] 04-27-2024 11:15-0400 Systolic blood pressure 118 mm[Hg] Jordan Brown [facility] 04-27-2024 11:05-0400 Mean blood pressure 91 mm[Hg] Jordan Brown [facility] 04-27-2024 11:05-0400 Respiratory rate 16 /min Jordan Brown [facility] 04-27-2024 10:50-0400 Mean blood pressure 88 mm[Hg] Jordan Brown [facility] 04-27-2024 10:50-0400 Respiratory rate 9 /min Jordan Yuan [facility] 04-27-2024 10:10-0400 Body temperature 97.16 [degF] Jordan Yuan [facility] 04-27-2024 10:05-0400 Respiratory rate 12 /min Jordan Yuan [facility] 04-27-2024 06:23-0400 Mean blood pressure 82 mm[Hg] Jordan Yuan [facility] 04-27-2024 06:22-0400 Body temperature 97.7 [degF] Jordan Yuan [facility] 04-17-2024 15:14-0400 Body height 165.1 cm [facility] 04-17-2024 15:14-0400 Body mass index (BMI) [Ratio] 23.1 kg/m2 [facility] 04-17-2024 15:14-0400 Body weight 63.16 kg [facility] 04-17-2024 15:14-0400 Diastolic blood pressure 84 mm[Hg] [facility] 04-17-2024 15:14-0400 Heart rate 84 /min [facility] 04-17-2024 15:14-0400 Respiratory rate 12 /min [facility] 04-17-2024 15:14-0400 Systolic blood pressure 147 mm[Hg] [facility] 03-27-2024 16:24-0400 Body height 165.1 cm [facility] 03-27-2024 16:24-0400 Body mass index (BMI) [Ratio] 23.9 kg/m2 [facility] 03-27-2024 16:24-0400 Body weight 65.31 kg [facility] 03-27-2024 16:24-0400 Diastolic blood pressure 76 mm[Hg] [facility] 03-27-2024 16:24-0400 Heart rate 87 /min [facility] 03-27-2024 16:24-0400 Respiratory rate 12 /min [facility] 03-27-2024 16:24-0400 Systolic blood pressure 126 mm[Hg] [facility] 03-19-2024 12:28-0400 Diastolic blood pressure 71 mm[Hg] Jordan Yuan [facility] 03-19-2024 12:28-0400 Systolic blood pressure 126 mm[Hg] Jordan Yuan [facility] 03-19-2024 12:27-0400 Blood Pressure Location Jordan Yuan [facility] 03-19-2024 12:27-0400 Body temperature 97.88 [degF] Jordan Yuan [facility] 03-19-2024 12:27-0400 Diastolic blood pressure 78 mm[Hg] Jordan Yuan [facility] 03-19-2024 12:27-0400 Heart rate 75 /min Jordan Yuan [facility] 03-19-2024 12:27-0400 Mean blood pressure 94 mm[Hg] Jordan Yuan [facility] 03-19-2024 12:27-0400 Respiratory rate 15 /min Jordan Yuan [facility] 03-19-2024 12:27-0400 SaO2% (BldA) [Mass fraction] 97 % Jordan Yuan [facility] 03-19-2024 12:27-0400 Systolic blood pressure 127 mm[Hg] Jordan Yuan [facility] 02-29-2024 09:29-0400 Body height 165.1 cm [facility] 02-29-2024 09:29-0400 Body mass index (BMI) [Ratio] 24.1 kg/m2 [facility] 02-29-2024 09:29-0400 Body weight 65.82 kg [facility] 02-29-2024 09:29-0400 Diastolic blood pressure 81 mm[Hg] [facility] 02-29-2024 09:29-0400 Heart rate 74 /min [facility] 02-29-2024 09:29-0400 Respiratory rate 12 /min [facility] 02-29-2024 09:29-0400 Systolic blood pressure 129 mm[Hg] [facility] 12-28-2023 15:31-0400 Body height 165.1 cm [facility] 12-28-2023 15:31-0400 Body mass index (BMI) [Ratio] 25.7 kg/m2 [facility] 12-28-2023 15:31-0400 Body weight 70.08 kg [facility] 12-28-2023 15:31-0400 Diastolic blood pressure 75 mm[Hg] [facility] 12-28-2023 15:31-0400 Heart rate 92 /min [facility] 12-28-2023 15:31-0400 Respiratory rate 12 /min [facility] 12-28-2023 15:31-0400 Systolic blood pressure 112 mm[Hg] [facility] 11-15-2023 15:42-0400 Body height 162.6 cm Jordan [employer] Work Phone: [facility] 11-15-2023 15:42-0400 Body mass index (BMI) [Ratio] 28.15 kg/m2 [employer] Work Phone: [facility] 11-15-2023 15:42-0400 Body weight 74.39 kg [employer] Work Phone: [facility] 09-28-2023 15:16-0400 Body height 165.1 cm [facility] 09-28-2023 15:16-0400 Body mass index (BMI) [Ratio] 27.8 kg/m2 [facility] 09-28-2023 15:16-0400 Body weight 75.92 kg [facility] 09-28-2023 15:16-0400 Diastolic blood pressure 68 mm[Hg] [facility] 09-28-2023 15:16-0400 Heart rate 80 /min [facility] 09-28-2023 15:16-0400 Respiratory rate 12 /min [facility] 09-28-2023 15:16-0400 Systolic blood pressure 130 mm[Hg] [facility] 09-05-2023 21:48-0500 Body height 166.37 cm John Ball Other [employer] [facility] [employer] Other 09-05-2023 16:33-0500 Body height 165.1 cm [facility] 09-05-2023 16:33-0500 Body mass index (BMI) [Ratio] 28.5 kg/m2 [facility] 09-05-2023 16:33-0500 Body weight 77.79 kg [facility] 09-05-2023 16:33-0500 Diastolic blood pressure 69 mm[Hg] [facility] 09-05-2023 16:33-0500 Heart rate 97 /min [facility] 09-05-2023 16:33-0500 Systolic blood pressure 115 mm[Hg] [facility] 08-18-2023 15:40-0500 Body height 162.6 cm [employer] Work Phone: [facility] 08-18-2023 15:40-0500 Body mass index (BMI) [Ratio] 28.15 kg/m2 [employer] Work Phone: [facility] 08-18-2023 15:40-0500 Body temperature 97.11 [degF] [employer] Work Phone: [facility] 08-18-2023 15:40-0500 Body weight 74.39 kg [employer] Work Phone: [facility] [employer] 08-17-2023 15:00-0500 Body height 166.37 cm John Ball Other [employer] Other 08-17-2023 15:00-0500 Body mass index (BMI) [Ratio] 28.12 kg/m2 John Ball Other [employer] Other 08-17-2023 15:00-0500 Body weight 77.84 kg John Ball Other [employer] Other 08-17-2023 15:00-0500 Diastolic blood pressure 79 mm[Hg] John Ball Other [employer] Other 08-17-2023 15:00-0500 Respiratory rate 12 /min John Ball Other [employer] Other 08-17-2023 15:00-0500 Systolic blood pressure 126 mm[Hg] John Ball Other [employer] Other 04-07-2023 14:00-0400 Body temperature 97.52 [degF] Jordan Payward [facility] 04-07-2023 14:00-0400 Diastolic blood pressure 63 mm[Hg] [employer] [facility] 04-07-2023 14:00-0400 Heart rate 88 /min Jordan Payward [facility] 04-07-2023 14:00-0400 Mean blood pressure 76 mm[Hg] Jordan Payward [facility] 04-07-2023 14:00-0400 SaO2% (BldA) [Mass fraction] 94 % Jordan Payward [facility] 04-07-2023 14:00-0400 Systolic blood pressure 101 mm[Hg] Jordan Payward [facility] 04-07-2023 08:47-0400 Diastolic blood pressure 75 mm[Hg] Jordan Payward [facility] 04-07-2023 08:47-0400 Systolic blood pressure 125 mm[Hg] Jordan Payward [facility] 04-07-2023 07:45-0400 Blood Pressure Location Jordan Yuan [facility] 04-07-2023 07:45-0400 Body temperature 97.88 [degF] Jordan Yuan [facility] 04-07-2023 07:45-0400 Diastolic blood pressure 75 mm[Hg] Jordan Brown [facility] 04-07-2023 07:45-0400 Heart rate 72 /min Jordan Yuan [facility] 04-07-2023 07:45-0400 Hour[employer] Round[employer] Jordan Yuan [facility] 04-07-2023 07:45-0400 Mean blood pressure 92 mm[Hg] Jordan Yuan [facility] 04-07-2023 07:45-0400 Promise to Return Jordan Yuan [facility] 04-07-2023 07:45-0400 Respiratory rate 16 /min Jordan Yuan [facility] 04-07-2023 07:45-0400 SaO2% (BldA) [Mass fraction] 96 % Jordan Yuan [facility] 04-07-2023 07:45-0400 Systolic blood pressure 125 mm[Hg] Jordan Yuan [facility] 04-07-2023 06:17-0400 [employer] Round[employer] Jordan Yuan [facility] 04-07-2023 06:17-0400 Promise to Return Jordan Yuan [facility] 04-07-2023 05:05-0400 Hour[employer] Rounding Jordan Yuan [facility] 04-07-2023 05:05-0400 Promise to Return Jordan Yuan [facility] 04-06-2023 22:20-0400 Blood Pressure Location Jordan Yuan [facility] 04-06-2023 22:20-0400 Body temperature 98.24 [degF] Jordan Yuan [facility] 04-06-2023 22:20-0400 Heart rate 74 /min Jordan Yuan [facility] 04-06-2023 22:20-0400 Mean blood pressure 78 mm[Hg] Jordan Yuan [facility] 04-06-2023 22:20-0400 Respiratory rate 16 /min Jordan Yuna [facility] 04-06-2023 22:20-0400 SaO2% (BldA) [Mass fraction] 93 % Jordan Yuan [facility] 04-06-2023 20:10-0400 Heart rate 65 /min Jordan Yuan [facility] 04-06-2023 20:01-0400 Body temperature 97.34 [degF] Jordan Yuan [facility] 04-06-2023 20:00-0400 Mean blood pressure 86 mm[Hg] Jordan Yuan [facility] 04-06-2023 16:17-0400 Mean blood pressure 97 mm[Hg] Jordan Yuan [facility] 04-06-2023 16:16-0400 Body temperature 97.52 [degF] Jordan Yuan [facility] 04-06-2023 13:49-0400 Mean blood pressure 88 mm[Hg] Jordan Yuan [facility] 04-06-2023 12:45-0400 Respiratory rate 13 /min Jordan Brown [facility] 04-06-2023 12:35-0400 Respiratory rate 10 /min Jordan Brown [facility] 04-06-2023 12:20-0400 Respiratory rate 17 /min Jordan Brown [facility] 04-06-2023 11:37-0400 Body temperature 96.98 [degF] Jordan Brown [facility] 04-06-2023 06:39-0400 Heart rate 68 /min Jordan Brown [facility] 03-24-2023 14:52-0400 Diastolic blood pressure 76 mm[Hg] Jordan Brown [facility] 03-24-2023 14:52-0400 Heart rate 67 /min Jordan Brown [facility] 03-24-2023 14:52-0400 Mean blood pressure 99 mm[Hg] Jordan Brown [facility] 03-24-2023 14:52-0400 Systolic blood pressure 144 mm[Hg] Jordan Brown [facility] 03-24-2023 14:52-0400 Heart rate 68 /min Jordan Brown [facility] 03-24-2023 14:52-0400 SaO2% (BldA) [Mass fraction] 99 % Jordan Brown [facility] 03-24-2023 14:52-0400 Diastolic blood pressure 75 mm[Hg] Jordan Brown [facility] 03-24-2023 14:52-0400 Mean blood pressure 93 mm[Hg] Jordan Brown [facility] 03-24-2023 14:52-0400 Systolic blood pressure 128 mm[Hg] Jordan Brown [facility] 03-24-2023 14:51-0400 Respiratory rate 16 /min Jordan Yuan [facility] 01-10-2023 15:00-0400 Body height 166.37 cm John Ball Other [email or web address] Other 01-10-2023 15:00-0400 Body mass index (BMI) [Ratio] 27.04 kg/m2 John Ball Other [employer] Other 01-10-2023 15:00-0400 Body weight 74.84 kg John Ball Other [employer] Other 01-10-2023 15:00-0400 Diastolic blood pressure 86 mm[Hg] John Ball Other [employer] Other 01-10-2023 15:00-0400 Respiratory rate 12 /min John Ball Other [employer] Other 01-10-2023 15:00-0400 Systolic blood pressure 124 mm[Hg] John Ball Other [employer] Other 12-09-2022 09:00-0400 Body height 166.37 cm John Ball Other [employer] Other 12-09-2022 09:00-0400 Body mass index (BMI) [Ratio] 27.33 kg/m2 John Ball Other [employer] Other 12-09-2022 09:00-0400 Body weight 75.66 kg John Ball Other [employer] Other 12-09-2022 09:00-0400 Diastolic blood pressure 71 mm[Hg] John Ball Other [employer] Other 12-09-2022 09:00-0400 Respiratory rate 12 /min Jonh Ball Other [employer] Other 12-09-2022 09:00-0400 Systolic blood pressure 111 mm[Hg] John Ball Other [employer] Other 11-09-2022 15:00-0400 Body height 166.37 cm John Ball Other [employer] Other 11-09-2022 15:00-0400 Body mass index (BMI) [Ratio] 27.36 kg/m2 John Ball Other [employer] Other 11-09-2022 15:00-0400 Body weight 75.75 kg John Ball Other [employer] Other 11-09-2022 15:00-0400 Diastolic blood pressure 80 mm[Hg] John Ball Other [employer] Other 11-09-2022 15:00-0400 Respiratory rate 12 /min John Ball Other [employer] Other 11-09-2022 15:00-0400 Systolic blood pressure 135 mm[Hg] John Ball Other [employer] Other 07-26-2022 16:30-0500 Body height 166.37 cm John Ball Other [employer] Other 07-26-2022 16:30-0500 Body mass index (BMI) [Ratio] 26.28 kg/m2 John Ball Other [employer] Other 07-26-2022 16:30-0500 Body weight 72.76 kg John Ball Other [facility] [employer] Other 07-26-2022 16:30-0500 Diastolic blood pressure 78 mm[Hg] John Ashby Other [facility] [employer] Other 07-26-2022 16:30-0500 Respiratory rate 12 /min John Ashby Other [facility] [employer] Other 07-26-2022 16:30-0500 Systolic blood pressure 122 mm[Hg] John Ashby Other [facility] [employer] Other Encounters Encounter Date Encounter Type Care Provider Facility Start: 03-06-2025 End: 03-06-2025 ambulatory John Ashby DO Work Phone: [facility] Work Phone: Start: 03-06-2025 End: 03-06-2025 Patient encounter procedure John Ashby DO -[facility] Work Phone: Start: 12-10-2024 End: 12-10-[address] [facility] Start: 11-19-2024 End: 11-19-2024 ambulatory Nicki Plunkett MD Facility:[place] Start: 11-06-2024 End: 11-06-2024 ambulatory John Ashby DO Work Phone: [facility] Work Phone: Start: 11-06-2024 End: 11-06-2024 Patient encounter procedure John Ball DO Work Phone: [facility] Work Phone: Start: 11-06-2024 End: 11-06-2024 Patient encounter procedure John Ball DO Work Phone: [facility] Start: 11-06-2024 End: 11-06-2024 ambulatory John Ball DO Work Phone: [facility] Work Phone: Start: 10-29-2024 End: 10-29-2024 ambulatory Nicki Plunkett MD Facility:[facility] Start: 10-08-2024 End: 10-08-2024 ambulatory Nicki Plunkett MD Facility: [place] Start: 10-04-2024 End: 10-04-2024 Patient encounter procedure [...] Start: 09-28-2024 End: 09-29-2024 ambulatory Jordan Yuan Facility:[facility] Start: 09-25-2024 End: 09-25-2024 ambulatory [facility] Work Phone: Start: 09-25-2024 End: 09-25-2024 Patient encounter procedure [facility] Work Phone: Start: 09-18-2024 End: 09-18-2024 Patient encounter procedure Jordan Yuan DO Work Phone: [facility] Comment on above: S/P arthroscopy of l eft shoulder (Primary Dx) Start: 09-18-2024 End: 09-18-2024 ambulatory JORDAN YUAN Not Available Start: 08-31-2024 [facility] Work Phone: Start: 08-29-2024 End: 08-29-[address] [facility] Work Phone: Start: 08-29-2024 End: 08-29-2024 Encounter for general adult medical examination without abnormal findings [facility] Start: 08-29-2024 End: 08-29-2024 Patient encounter procedure [facility] Work Phone: Start: 08-27-2024 Patient encounter status [facility] Start: 07-17-2024 End: 07-17-2024 Patient [...] [facility] Start: 06-21-2024 Non-patient / Non-visit [facility] Work Phone: Start: 06-14-2024 End: 06-14-2024 Patient encounter procedure [facility] Work Phone: Start: 06-05-2024 End: 06-05-2024 ambulatory JORDAN YUAN Not Available Start: 06-05-2024 End: 06-05-2024 Patient encounter procedure Jordan Yuan DO Work Phone: [facility] Comment on above: Status post shoulder surgery (Primary Dx) Start: 05-09-2024 End: 05-09-2024 ambulatory [facility] Work Phone: Start: 05-09-2024 End: 05-09-2024 Patient encounter procedure [facility] Work Phone: Start: 05-08-2024 End: 05-08-2024 Patient encounter procedure Jordan Yuan DO Work Phone: [facility] Comment on above: Status post shoulder surgery (Primary Dx) Start: 05-08-2024 End: 05-08-2024 ambulatory JORDAN YUAN Not Available Start: 05-08-2024 End: 05-08-2024 ambulatory JORDAN YUAN Not Available Start: 04-27-2024 End: 04-27-2024 Admission to same day surgery center Jordan Yuan [facility] Start: 04-27-2024 End: 04-27-2024 ambulatory DO Jordan Yuan Facility:[facility] Start: 04-17-2024 End: 04-17-2024 ambulatory [facility] Work Phone: Start: 04-17-2024 End: 04-17-2024 Patient encounter procedure [facility] Work Phone: Start: 04-10-2024 End: 04-10-2024 ambulatory [facility] Work Phone: Start: 04-10-2024 End: 04-10-2024 Patient encounter procedure [facility] Work Phone: Start: 03-30-2024 End: 03-30-2024 ambulatory [facility] Work Phone: Start: 03-30-2024 End: 03-30-2024 Patient encounter procedure [facility] Work Phone: Start: 03-27-2024 End: 03-27-2024 ambulatory [facility] Work Phone: Start: 03-27-2024 End: 03-27-2024 Patient encounter procedure [facility] Work Phone: Start: 03-25-2024 Patient encounter status [facility] Start: 03-19-2024 End: 03-19-2024 ambulatory Jordan Yuan Facility:[facility] Start: 03-19-2024 End: 03-19-2024 Patient encounter procedure Jordan Yuan [facility] Start: 02-29-2024 End: 02-29-2024 ambulatory [facility] Work Phone: Start: 02-29-2024 End: 02-29-2024 Patient encounter procedure [facility] Work Phone: Start: 02-23-2024 End: 02-23-2024 ambulatory JORDAN YUAN Not Available Start: 02-14-2024 Non-patient / Non-visit [facility] Work Phone: Start: 02-02-2024 Non-patient / Non-visit [facility] Work Phone: Start: 12-28-2023 End: 12-28-2023 ambulatory [facility] Work Phone: Start: 12-28-2023 End: 12-28-2023 Patient encounter procedure [facility] Work Phone: Start: 11-15-2023 End: 11-15-2023 Patient encounter procedure Jordan Yuan DO Work Phone: [facility] Comment on above: Status post shoulder surgery (Primary Dx) Start: 11-15-2023 End: 11-15-2023 ambulatory JORDAN YUAN Not Available Start: 09-28-2023 End: 09-28-2023 ambulatory [facility] Work Phone: Start: 09-28-2023 End: 09-28-2023 Patient encounter procedure [facility] Work Phone: Start: 09-06-2023 End: 09-06-2023 ambulatory Jordan Yuan Facility:[facility] Start: 09-06-2023 End: 09-06-2023 Patient encounter procedure Jordan Yuan [facility] Start: 09-05-2023 Non-patient / Non-visit [facility] Work Phone: Start: 09-05-2023 End: 09-05-2023 ambulatory John Ashby Other [employer] Other Start: 09-05-2023 Telephone encounter John Ashby [facility] Start: 09-02-2023 Non-patient / Non-visit [facility] Work Phone: Start: 08-30-2023 Non-patient / Non-visit [facility] Work Phone: Start: 08-18-2023 End: 08-18-2023 Patient encounter procedure Jordan Yuan DO Work Phone: [facility] Comment on above: Right shoulder pain, unspecified chronicity (Primary Dx) Start: 08-18-2023 Chart abstracting Jordan do DO Work Phone: [facility] Start: 08-17-2023 End: 08-17-2023 ambulatory John Ashby Other [employer] Other Start: 08-17-2023 Encounter for genera l adult medical examination without abnormal findings John Ashby [facility] Start: 08-17-2023 Periodic preventive med est patient 40-64yrs John Ashby [facility] Start: 06-28-2023 End: 06-28-2023 ambulatory John Ashby Other [employer] Other Start: 06-28-2023 Office outpatient vi sit 15 minutes John Ashby [facility] Start: 05-06-2023 End: 05-06-2023 ambulatory John Ashby Other [employer] Other Start: 05-06-2023 Telephone encounter John Ashby [facility] Start: 04-26-2023 End: 04-26-2023 ambulatory John Ashby Other [employer] Other Start: 04-26-2023 Telephone encounter John SIMON [facility] Start: 04-06-2023 End: 04-07-2023 Admission to same day surgery center Jordan Yuan [facility] Start: 04-06-2023 End: 04-07-2023 ambulatory Jordan Yuan Facility:[facility] Start: 03-31-2023 End: 03-31-2023 ambulatory John Ashby Other [employer] Other Start: 03-31-2023 Telephone encounter John SIMON [facility] Start: 03-26-2023 End: 03-26-2023 ambulatory John Ashby Other [employer] Other Start: 03-26-2023 Telephone encounter John SIMON [facility] Start: 03-24-2023 End: 03-24-2023 ambulatory Jordan Yuan Facility:[facility] Start: 03-24-2023 End: 03-24-2023 Patient encounter procedure Jordan Yuan [facility] Start: 03-21-2023 End: 03-21-2023 ambulatory John Ashby Other [employer] Other Start: 03-21-2023 Telephone encounter John SIMON [facility] Start: 01-12-2023 End: 01-12-2023 ambulatory John Ashby Other [employer] Other Start: 01-12-2023 Telephone encounter John SIMON [facility] Start: 01-10-2023 End: 01-10-2023 ambulatory John Ashby Other [employer] Other Start: 01-10-2023 Office outpatient vi sit 15 minutes John Ashby [facility] Start: 12-14-2022 End: 12-14-2022 ambulatory John Ashby Other [employer] Other Start: 12-14-2022 Telephone encounter oJhn Ashby [facility] Start: 12-10-2022 End: 12-10-2022 ambulatory John Symone Other [employer] Other Start: 12-10-2022 Telephone encounter John Ashby [facility] Start: 12-09-2022 End: 12-09-2022 ambulatory John Symone Other [employer] Other Start: 12-09-2022 Office outpatient vi sit 15 minutes John Ashby [facility] Start: 11-09-2022 End: 11-09-2022 ambulatory John Symone Other [employer] Other Start: 11-09-2022 Office outpatient vi sit 15 minutes John Ashby [facility] Start: 10-13-2022 ambulatory NARENDRANATH LAKSHMIPATHY . Facility:[facility] Start: 10-07-2022 End: 10-08-2022 ambulatory NARENDRANATH LAKSHMIPATHY . Facility:[facility] Start: 09-22-2022 End: 09-22-2022 ambulatory John Ashby Other [employer] Other Start: 09-22-2022 Telephone encounter John Ashby [facility] Start: 09-16-2022 End: 09-17-[address] JOHN ASHBY Facility:[facility] Start: 08-14-2022 End: 08-14-2022 ambulatory John Ashby Other [employer] Other Start: 08-14-2022 Telephone encounter John Symone [facility] Start: 07-26-2022 End: 07-26-2022 ambulatory John Symone Other [employer] Other Start: 07-26-2022 Office outpatient vi sit 15 minutes John Ashby [facility] Start: 07-22-2022 Annual wellness visit John Ashby Other [employer] Other Start: 07-22-2022 Patient encounter procedure John Ashby Other [employer] Other Start: 07-09-2022 End: 07-10-[address] JOHN ASHBY Facility:[facility] Start: 06-21-2022 Adult health examination John Symone Other [employer] Other Start: 06-21-2022 Gynecological examination normal John Symone Other [employer] Other Start: 2022 End: 06-09-[address] JOHN ASHBY Facility:[facility] Start: 06-01-2022 End: 06-01-[address] JOHN ASHBY Facility:[facility] Start: 05-24-2022 Encounter for genera l adult medical examination without abnormal findings DR JOHN ASHBY [facility] Start: 05-20-2022 End: 05-21-[address] [...] 03-12-2020 End: 03-13-2020 Patient encounter procedure MARYURI EBSUSAN Facility:[facility] Start: 03-05-2020 End: 03-20-2020 Patient encounter procedure MARYURI EBRAHEIM Facility:[facility] Start: 10-20-2017 End: 10-21-2017 Ambulatory BARRY H. BASIM [facility] Start: 10-13-2017 End: 10-18-2017 Ambulatory BARRY Comfort. BASIM [facility] Procedures Date Procedure Procedure Detail [...] Influenza vaccination Influenz a Vaccine (Season Ended) [facility] Start: 11-06-2024 Plain X-ray of left shoulder XR shoulder LT min 2V* [facility] Start: 11-06-2024 XR Shoulder - left Views [facility] Start: 10-04-2024 End: 10-04-2024 Patient encounter procedure 10/04/2024 2:45 PM EDT Office Visit [facility] [address] [place] [id number] Jordan Yuan DO [address] [place] [address] Arrived [facility] Comment on above: Arrived Start: 09-18-2024 End: 09-18-2024 Patient encounter procedure 09/18/2024 10:00 AM EDT Office Visit [facility] [address] [place] [id number] Jordan Yuan DO [address] [place] [address] [facility] Start: 07-17-2024 End: 07-17-2024 Patient encounter procedure 07/17/2024 2:45 PM EST Office Visit [facility] [address] [place] [place] [address] Jordan Yuan DO [address] [place] [address] Arrived [facility] Comment on above: Arrived Start: 2024 Screening for malign ant neoplasm of colon [facility] Start: 06-05-2024 End: 06-05-2024 Patient encounter procedure 06/05/2024 9:15 AM EST Office Visit [facility] [address] [place] [address] Jordan Yuan, [address] [place] [address] [facility] Start: 05-08-2024 End: 05-08-2024 Patient encounter procedure 05/08/2024 10:45 AM EDT Office Visit [facility] [address] [address] Jordan Yuan, [address] [place] [address] [facility] Start: 03-11-2024 Influenza vaccination Influenza Vacc ine (#1) [facility] Start: 10-04-2023 End: 10-04-2023 Patient encounter procedure 10/04/2023 3:45 PM EDT Office Visit [facility] [address] [address] Jordan Yuan DO [address] [place] [address] [facility] Start: 08-18-2023 End: 08-18-2023 Patient encounter procedure 08/18/2023 3:45 PM EST Office Visit [facility] [address] [place] [address] Jordan Yuan DO [address] [place] [address] [facility] Start: 08-18-2023 End: 08-18-2024 C reactive protein [Mass/volume] in Serum or Plasma C-reactive protein Lab Routine Right shoulder pain, unspecified chronicity Expected: 08/18/2023 (Approximate), Expires: 08/18/2024 [facility] Comment on above: Expected: 08/18/2023 (Approximate), Expires: 08/18/2024 Start: 08-18-2023 End: 08-18-2024 CBC W Auto Differential panel - Blood CBC auto differential Lab Routine Right shoulder pain, unspecified chronicity Expected: 08/18/2023 (Approximate), Expires: 08/18/2024 [facility] Work Phone: Comment on above: Expected: 08/18/2023 (Approximate), Expires: 08/18/2024 Start: 08-18-2023 End: 08-18-2024 Erythrocyte sedimentation rate Sedimentation rate, automated Lab Routine Right shoulder pain, unspecified chronicity Expected: 08/18/2023 (Approximate), Expires: 08/18/2024 [facility] Comment on above: Expected: 08/18/2023 (Approximate), Expires: 08/18/2024 Start: 08-18-2023 End: 08-18-2024 Interleukin-6 Interleukin-6 Lab Routine Right shoulder pain, unspecified chronicity Expected: 08/18/2023 (Approximate), Expires: 08/18/2024 [facility] Comment on above: Expected: 08/18/2023 (Approximate), Expires: 08/18/2024 Start: 2000 Screening for malign ant neoplasm of breast Mammogram [facility] Start: 1990 Screening for malign ant neoplasm of cervix [facility] Start: 1981 Screening for malign ant neoplasm of cervix Pap Smear [facility] Start: 1960 Screening for malign ant neoplasm of colon [facility] Comprehensive metabo lic 1999 panel - Serum or Plasma [facility] Renal function 1999 panel - Serum or Plasma [facility] - bilateral [facility] Immunizations Immunization Date Immunization Notes Care Provider Fa cili 05-10-2019 influenza virus vaccine, unspecified formulation Jordan Yuan DO Work Phone: [facility] 03-22-2012 tetanus and diphther ia toxoids, adsorbed, preservative free, for adult use (5 Lf of tetanus toxoid and 2 Lf of diphtheria toxoid) John Ashby Other [facility] Payers Date Payer Category Payer Private Health Insurance [id number] 2024 Medicare (Managed Care) [employer] AARP [id number] 2024 Unknown [id number] 2024 Private Health Insurance 2021 Blue Cross Blue Shield BCBS [id number] .[id number] 2021 Unknown [id number]. 1.13.693.2 .7.3.242418.315 2021 Blue Cross Blue Shield [id number] 2.16.840.1.805785.19 2020 Medicare 1.2.840.598882. 1.13.693.2 .7.3.131197.315 2017 Unknown [id number] 1960 Unknown [id number] 2.16.840.1.556940.3.579.2 .647 1960 Unknown [id number] 2.16.840.1.397040.3.579.2 .647 1960 Unknown [id number] 2.16.840.1.780454.3.579.2 .593 1960 Unknown [id number] 2.16.840.1.016904.3.579.2 .593 1960 Unknown [id number] 2.16.840.1.202587.3.579.2 .593 1960 Unknown [id number] 2.16.840.1.752636.3.579.2 .593 1960 Unknown [id number] 2.16.840.1.895428.3.579.2 .593 1960 Unknown [id number] 2.16.840.1.644581.3.579.2 .593 1960 Unknown [id number] 2.16.840.1.816379.3.579.2 .593 1960 Unknown [id number] 2.16.840.1.691199.3.579.2 .593 1960 Unknown [id number] 2.16.840.1.761205.3.579.2 .593 1960 Unknown [id number] 2.16.840.1.569290.3.579.2 .593 1960 Unknown [id number] 2.16.840.1.709326.3.579.2 .593 1960 Unknown [id number] 2.16.840.1.053374.3.579.2 .593 1960 Unknown [id number] 2.16.840.1.631286.3.579.2 .593 1960 Unknown [id number] 2.16.840.1.663770.3.579.2 .593 1960 Unknown [id number] 2.16.840.1.065951.3.579.2 .593 1960 Unknown [id number] 2.16.840.1.099997.3.579.2 .593 1960 Unknown [id number] 2.16.840.1.854336.3.579.2 .593 1960 Unknown [id number] 2.16.840.1.528363.3.579.2 .727 1960 Unknown [id number] 2.16.840.1.892239.3.579.2 .727 1960 Unknown [id number] 2.16.840.1.025877.3.579.2 .727 1960 Unknown [id number] 2.16.840.1.317340.3.579.2 .727 1960 Unknown [id number] 2.16.840.1.101639.3.579.2 .727 1960 Unknown [id number] 2.16.840.1.989010.3.579.2 .1259 1960 Unknown [id number] 2.16.840.1.355496.3.579.2 .1259 1960 Unknown [id number] 2.16.840.1.449704.3.579.2 .1259 1960 Unknown [id number] 2.16.840.1.457360.3.579.2 .1259 1960 Unknown [id number] 2.16.840.1.941209.3.579.2 .1259 1960 Unknown [id number] 2.16.840.1.985621.3.579.2 .1259 1960 Unknown [id number] 2.16.840.1.175547.3.579.2 .1259 1960 Unknown [id number] 2.16.840.1.983262.3.579.2 .1259 1960 Unknown [id number] 2.16.840.1.194983.3.579.2 .1259 1960 Unknown [id number] 2.16.840.1.369681.3.579.2 .9 1960 Unknown [id number] 2.16.840.1.264330.3.579.2 .9 1960 Unknown [id number] 2.16.840.1.868063.3.579.2 .727 1960 Unknown [id number] 2.16.840.1.765490.3.579.2 .727 1960 Unknown [id number] 2.16.840.1.701102.3.579.2 .196 1960 Unknown [id number] 2.16.840.1.470284.3.579.2 .196 1960 Unknown [id number] 2.16.840.1.044956.3.579.2 .196 1959 Medicare [id number] 1959 Self-pay 1959 Unknown [id number] 1959 Unknown [id number] Unknown [id number] 2.16.840.1.934202.3.579.2 .531 Social History Date Type Detail Facility Unknown if ever smoked [facility] Start: 07-21-2023 End: 10-04-2024 Sex Assigned At [facility] Tobacco smoking status No Smokin g Status Entered [facility] Start: 07-06-2018 End: 05-24-2023 Tobacco smoking status NCIS Ex-smoker [facility] Start: 04-10-1981 End: 07-11-1990 History of tobacco use Current smoker [facility] Start: 04-10-1981 End: 07-11-1990 History of [...] Start: 1960 Sex Assigned At Female F [facility] Average Number of Drinks Not on file [facility] Start: 08-29-2024 End: 11-07-2024 Sex Female (finding) [facility] Medical Equipment Procedure Code Equipment [...] R FDA Start: 04-06-2023 SHOULDER TOTAL ARTHROPLASTY oJrdan Yuan DO 04/06/23 Unknown Shoulder R FDA [...] Yuan DO 04/27/24 Non Biological Shoulder L {[id number]{ [id number] FDA Start: 04-27-2024 Functional Status Date Assessment Result Facility 03-19-2024 Functional Status No [facility] 03-24-2023 Functional Status No [facility] Clinical Notes 05-29-2018 to 12-10-2024 Jordan Yuna DO - 10/04/2024 2:45 PM EDTJordan Yuan DO - 09/18/2024 10:00 AM EDT Note Date & Type Note Facility 12-10-2024 Note [facility] Subjective Radha Zaidi is a 64 y.o. year old female [...] In the past she was admitted to [facility] with pneumonia and empyema, [...] kg (129 lb) SpO2 97% BMI 21.47 kg/m??? Smoking Status Former BSA 1.64 m??? Physical Exam Constitutional: Appearance: She is [...] mouth if needed., Disp: , Rfl: HYDROcodone-acetaminophen (Alamo) 5-325 mg tablet, TAKE 1 TABLET BY [...] Rfl: 3 omeprazole (PriLOSEC) [address] feliz (more content not included)... [facility] 10-04-2024 History of Present illness Narrative Images from [...] tablet citalopram (CeleXA) 10 MG tablet HYDROcodone-acetaminophen (Alamo) 5-325 MG tablet leflunomide (Arava) 10 MG [...] Results Imaging MRI of the left shoulder [facility] 09/28/2024 report and images reviewed. ASSESSMENT AND [...] about this procedure. We will utilize the Exalead shoulder arthroplasty platform and obtain a CT [...] note was created using voice recognition through AMIE Copilot artificial intelligence. documented in this encounter [facility] 09-18-2024 History of Present illness Narrative Images from [...] tablet citalopram (CeleXA) 10 MG tablet HYDROcodone-acetaminophen (Alamo) 5-325 MG tablet leflunomide (Arava) 10 MG [...] note was created using voice recognition through Vivogig artificial Goomeo. documented in this encounter [facility] 08-29-2024 Evaluation note Diagnosis Onset Date Resolution Chronic kidney disease acute Fe bruary 2024 3:15pm Essential hypertension acute bruary 2024 3:15pm Heart failure with improved ejection fraction (HFimpEF) acute August 3:15pm Nonischemic cardiomyopathy acute August 29, 025 3:15pm Pernicious anemia acute 2024 3:15pm [...] 25, 2024 10:33am Rheumatoid arthritis acute Adonis 2024 10:33am [facility] Work Phone: 1(291) 357-126502-19-2025 Evaluation note* Diagnosis Onset Date Resolution Status Admit Date Chronic kidney disease acute Fe bruary 2024 3:15pm Essential hypertension acute Fe bruary 2024 3:15pm Heart failure with improved ejection fraction (HFimpEF) acute 2024 3:15pm Nonischemic cardiomyopathy acute August 29, 2024 3:15pm Pernicious anemia acute 2024 3:15pm PSVT (paroxysmal supraventricular tachycardia) acute Fe bruary 2024 3:15pm Screening mammogram for k[facility]on [facility] cancer acute August 29, 2 025 3:15pm Wellness examination acute Febr uary 2024 3:15pm Encounter for screening for malignant neoplasm of colon noneactive Febr ua2024 3:15pm Anemia of renal disease acute M arch 2024 10:33am Chronic kidney disease, stag e 3b acute September 25, 2024 10:33am Hypertensive nephropathy acute September 25, 2024 10:33am Rheumatoid arthritis acute Adonis h 2024 10:33am Left rotator cuff tear acute Ap ril 2024 1:35pm Primary osteoarthritis, left shoulder acute November 06, 2024 1:35pm [facility] Work Phone: 1(189) 434-474001-07-2025 History of Present illness Narrative* Jordan Yuan, DO - 07/17/2024 2:45 PM EST Images from the original note were not included. @ENCDATE@ [employer] Levy Zaidi is a 64 y.o. female [...] tablet citalopram (CeleXA) 10 MG tablet HYDROcodone-acetaminophen (Alamo) 5-325 MG tablet leflunomide (Arava) 10 MG [...] note was created using voice recognition through HelloTel. documented in this encounterI[facility] HospitalZiwkpoupwz58-16-1155 Evaluation note* Diagnosis Onset Date Resolution Status [...] 025 3:15pm Wellness examination acute 2024 3:15pm [facility] Work Phone: 1(904) 912-772711-26-2024 History of Present illness Narrative* Jordan Yuan DO - 06/05/2024 9:15 AM EST Images from the original note were not included. @[employer] Guidance SystemsTE@ [employer] Levy Zaidi is a 63 y.o. female [...] tablet citalopram (CeleXA) 10 MG tablet HYDROcodone-acetaminophen (Alamo) 5-325 MG tablet TAKE 1 TABLET BY [...] with debridement Patient will start PT at [place]. [place] protocol for small to medium cuff tears will be utilized. Follow up in 6 weeks. Continue to ice the shoulder and allow sufficient time for rest during the week. There are no diagnoses linked to this encounter. Jordan Yuna D.O. Attestation This note was created using voice recognition through Hello[employer]. * LORY HernandezT - 06/05/2024 9:15 AM ESTAssociated Order(s): L Inj/Asp: L glenohumeral Post-Procedure Diagnose(s): Status post shoulder surgery L Inj/Asp: L glenohumeral on 06/05/2024 2:26 PM Indications: pain Details: 25 G needle, ultrasound-guided Medications: 2 mL betamethasone acetate-betamethasone sodium phosphate 6 (3-3) MG/ML Consent was given by the patient. documented in this encounterI-70 Community HospitalLaobjjbsga55-56-7622 History of Present illness Narrative* Jordan Yuan, DO - 05/08/2024 10:45 AM EDT Images from the original note were not included. @LORAINE@ [employer] Levy Zaidi is a 63 y.o. female [...] tablet citalopram (CeleXA) 10 MG tablet HYDROcodone-acetaminophen (Alamo) 5-325 MG tablet TAKE 1 TABLET BY MOUTH 3 TIMES A DAY NEEDED FOR PAIN*MUS LAST 30 DAYS HYDROcodone-acetaminophen (Alamo) 5-325 MG tablet 1-2 tablets, Oral, Every [...] for her medication will be sent to [facility] in [place]. Follow-up Return in 4 weeks for follow up. PT will be initiated at that time. Diagnoses and all orders for this visit: Status post shoulder surgery - XR shoulder 2+ views left - HYDROcodone-acetaminophen (Alamo) 5-325 MG tablet; Take 1-2 tablets by mouth every 4 (four) hoursif needed (pain) for up to 7 days Jordan Yuan D.O. Attestation This note was created using voice recognition through [employer] artificial intelligence. 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 Family History: Primary malignant neoplasm of prostate Father Acute myocardial infarction Mother Procedure history: Total shoulder replacement (96187212) on 04/06/2023 at 62 Years. Cervical laminectomy (5550464813). Amputation of finger (655445401). Removal of lung, Partial (19562). Open reduction and internal fixation of fracture Leg (872532552). Foot surgery (7683318448). Lumbar discectomy (879714521). Social History Social & Psychosocial Habits Alcohol [...] Signs (last 24 hrs) Last Charted Temp Aefafjvm04.5 DegC (APR 27 06:) Heart Rate Mcxkdypme61 bpm (APR 27:) RCF510 mmHg (APR 27:) DBP70 mmHg (APR 27:) [...] Auto 55.1 % Lymph Auto 20.4 % [place] Auto 19.5 % HI Eos Auto 3.7 % Basophil Auto 1.3 % Neutro Absolute 2.4 E9/L Lymph Absolute 0.9 E9/L LOW [place] Absolute 0.8 E9/L Eos Absolute 0.2 E9/L Basophil Absolute 0.1 E9/L . Plan [place] [employer] Anesthesiologists (ASA) physical status classification: Class III. Anesthetic Preoperative Plan: Anesthesia General. Regional Interscalene block. Addendum by Garett CHAUHAN, Wm Mistry on April 27, 2024 8:55 EDT [place] [facility] 10-18-2024 Hospital Discharge instructions Patient Education 04/27/2024 10:08:37 Shoulder Cryocuff Patient Instructions - FT (CUSTOM) 04/27/2024 10:08:34 Post Op Patient Instructions - FT (CUSTOM) 04/27/2024 07:48:25 Iris Yuan - After Your Shoulder Arthroscopy (Custom) [place], [place] [facility] AFTER YOUR SHOULDER ARTHROSCOPY [...] your appointment. Jordan Yuan, DO [facility] [address] [place] [address] Reviewed: Follow Up Care 02/23/2024 15:25:37 With:Jordan Yuan Address: [address] [place] [address]- Business (1) When:05/08/2024 10:45:00 Comments:Call for any problems.Keep scheduled appointmentAppointment has already been scheduled [facility] 10-18-2024 NoteProgress Note-Physician Patient: RADHA ZAIDI Age: 63 years Sex: Female : 1960 Associated Diagnoses: None Author: Wm Bajwa MD Postoperative Information Postoperative disposition: Postoperative disposition: To PACU. Optimetrix number: Optimetrix number [id number]. Anesthetic utilized: General. Regional: Interscalene Block. Health [...] Discharge when meets criteria ( To home ).[facility] CenterComment on above:Result Comment: Electronically Signed By: Wm Bajwa MD\.br\Date and Time Signed: 04/27/24 10:30 EDT 04-27-2024 NotePatient Education - Text [place], [place] [facility] AFTER YOUR SHOULDER ARTHROSCOPY [...] your appointment. 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 Family History: Primary malignant neoplasm of prostate Father Acute myocardial infarction Mother Procedure history: Total shoulder replacement (18608330) on 04/06/2023 at 62 Years. Cervical laminectomy (1531383165). Amputation of finger (327688050). Removal of lung, Partial (87692). Open reduction and internal fixation of fracture Leg (855888710). Foot surgery (6634169430). Lumbar discectomy (906902696). Social History Social & Psychosocial H (more content not included)...[facility] CenterComment on above:Result Comment: Electronically Signed By: Garett CHAUHAN, Wm Mistry\.br\Date and Time Signed: 04/27/24 08:55 [id number] History of Present illness Narrative* Jordan Yuan, DO - 11/15/2023 3:45 PM EDT Images from the original note were not included. @[employer]@ [employer] Levy Zaidi is a 63 y.o. female [...] tablet citalopram (CeleXA) 10 MG tablet HYDROcodone-acetaminophen (Alamo) 5-325 MG tablet TAKE 1 TABLET BY [...] Jordan Yuan D.O. 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 She points to the anterior aspect of the shoulder as the locationof her discomfort. SUBJECTIVE: MEDICATIONS: Current Outpatient Medications Medication Instructions aspirin 81 MG EC tablet 1 tablet, Oral, Daily buPROPion XL (Wellbutrin XL) 300 MG 24 hr tablet citalopram (CeleXA) 10 MG tablet HYDROcodone-acetaminophen (Alamo) 5-325 MG tablet TAKE 1 TABLET BY [...] care. Jordan Yuan D.O. documented in this encounterI-70 Community HospitalYtcsiazkqw16-31-2803 Evaluation note* Encounter Date Diagnosis Assessment Notes [...] Symptoms tolerable, continue medical treatment f/u Rheumatology [facility] 12-19-2023 Evaluation note* Encounter Date Diagnosis [...] Jun, Immunosuppressed sta tus (ICD-10 - D84.9) [facility] 09-28-2023 Evaluation + Plan noteExtracted from: [...] Basic PRE Author:Hill Rai DO Date:04/06/23 Plan [place] [employer] Anesthesiologists (ASA) physical status classification: Class II. Anesthetic Preoperative Plan: Anesthesia General. Regional Interscalene block. [facility]09-28-2023 Hospital Discharge instructions Patient Education 04/07/2023 07:41:33 Iris Yuan - Shoulder Replacement (Custom) [place], [place] [facility] DISCHARGE INSTRUCTIONS: SHOULDER REPLACEMENT [...] persistent vomiting. Jordan Yuan DO [facility] [address] [place] [address] Reviewed: Follow Up Care 03/09/2023 13:56:15 With:Jordan Yuan Address: [address] [place] [address]- Business (1) When:04/19/2023 14:15:00 With:JOHN ASHBY Address: [address] [place] [address] Business (1) When: Unknown [facility]09-28-2023 NotePatient: RADHA ZAIDI Age: 62 years [...] 15 mg, 1 tab(s), Oral, Daily, 0 Refill(s)[facility] CenterComment on above:Result Comment: Electronically Signed By: Jordan Yuan DO\.br\Date and Time Signed: 04/07/23 07:42 [id number]:127 [facility]09-16-2023 Evaluation note* Encounter Date Diagnosis Assessment Notes Treatment Notes Treatment Clinical Notes Mar, Major depressive disorder, single episode, 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 Suggested referral to Refund Specialist [facility] 05-02-2023 Evaluation note* Encounter Date Diagnosis [...] normal BMI. Monitor BP while taking Adipex [facility] 03-30-2023 NoteCONSULTATION PROCEDURE DATE: 10/07/2022 PROCEDURE: [...] at least 80% reduction of pain symptoms.[facility] HospitalWidkndix34-24-8382 NoteCONSULTATION CONSULTATION DATE: 10/07/2022 ADDENDUM: On examination of the right shoulder, the patient did have a positive right sided full can test, a positive Neida's test, Apley's test and cross body test. All four positive on examination date 10/07/2022.[facility] HospitalInupykpw33-42-6995 NoteCONSULTATION CONSULTATION DATE: 10/07/2022 TO: John Ashby [...] activity modification, use of Zanaflex, Lyrica and Alamo. RECOMMENDATIONS: I recommend proceeding with a right [...] right shoulder without contrast and physical therapy.[facility] HospitalHumbqymf46-17-2740 Evaluation note* Encounter Date Diagnosis Assessment Notes Treatment Notes Treatment Clinical Notes Aug, Anemia (ICD-10 - D64.9) [facility] 01-16-2023 Evaluation note* Encounter Date Diagnosis [...] Healthy diet, exercise w/o change in treatment [facility] [id number] NoteCONSULTATION PROCEDURE DATE: 07/09/2022 PREOPERATIVE DIAGNOSIS: Right [...] will be followed up in the office.[facility] HospitalSnxnqcgt69-41-3908 NoteCONSULTATION CONSULTATION DATE: 07/09/2022 HISTORY OF PRESENT [...] possible increase in dose. She also takes Alamo 5/325 t.i.d. and Zanaflex 4 mg three [...] three months' time, unless otherwise indicated. [facility] HospitalRkvkzcsn86-30-4592 NoteCONSULTATION CONSULTATION DATE: 05/20/2022 HISTORY OF PRESENT [...] medications include Celexa, Lyrica 50 mg b.i.d., Alamo 5/325 t.i.d. and Zanaflex. Patient is having [...] level of C3-4. We will refill her Alamo at 5/325 t.i.d. Supportive home measures were discussed such as heat and a menthol heat rub, as well as vitamin compliance. The patient agrees to move forward with the plan, will be followed up in the clinic thereafter.[facility] HospitalTaagautb13-80-2521 NoteCONSULTATION PROCEDURE DATE: 02/17/2022 PRE AND POSTOPERATIVE [...] will be followed up in the clinic.[facility] HospitalJnaxurdj50-54-8987 NotePROCEDURE: XR SHOULDER RT 2V or > COMPARISON: None. HISTORY: Pain of right shoulder joint FINDINGS: BONES:No acute fracture or dislocation. Minimal degenerative changes. Cervical fusion hardware SOFT TISSUES:Negative. No visible soft tissue swelling. EFFUSION:None visible. OTHER: Negative. IMPRESSION: No acute abnormality Electronically authenticated by: VANDANA COLLINS Date: 2022-02-16 19:11[facility]07-26-2022 NoteCONSULTATION CONSULTATION DATE: 02/02/2022 CHIEF COMPLAINT: [...] aggravates the pain. The patient currently takes Alamo 5/325 t.i.d., wellbutrin 150 mg, Lyrica 50 [...] point tenderness along the right bicipital tendon. Time Recorder strength is maintained. IMPRESSION: Current working diagnosis [...] like to proceed. 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 Cold weather and bending bother her as well. Medications include Lyrica 75 mg t.i.d., which she has not been taking for the past two months; Celexa, Alamo 5/325 t.i.d., Zanaflex and RINVOQ. She feels that her pain is managed well with her Alamo, but is concerned about the neuropathic pain [...] in need of a refill for her Alamo today, which we will give 5/325 t.i.d. [...] in three months' time unless otherwise indicated. [facility] Signed and Approved by: JACQUIE OLIVAS . 11/12/2021 16:27:00[facility]11-19-2018 Evaluation note* Diagnosis Onset Date Resolution Status PSVT (paroxysmal supraventricular tachycardia) acute Heart failure with improved ejection fraction (HFimpEF) acute Nonischemic cardiomyopathy a cute Orthostatic hypotension May 29, 2018 acute Anemia acute Essential hypertension acute ERICH (generalized anxiety disorder) acute Heart failure with improved ejection fraction (HFimpEF) acute Nonischemic cardiomyopathy a cute Preop exam for internal medicine acute PSVT (paroxysmal supraventricular tachycardia) [facility] Work Phone: [phone] 971-597111-19-2018 Evaluation note* Diagnosis Onset Date Resolution Status Heart failure with improved ejection fraction (HFimpEF) acute Nonischemic cardiomyopathy a cute Orthostatic hypotension May 29, 2018 acute Anemia acute Essential hypertension acute ERICH (generalized anxiety disorder) acute Heart failure with improved ejection fraction (HFimpEF) acute Nonischemic cardiomyopathy a cute Preop exam for internal medicine acute PSVT (paroxysmal supraventricular tachycardia) acute Rheumatoid arthritis acute [facility] Work Phone: Evaluation + Plan note Future Appointments Appointment Date:04/06/2023 09:30:00 AM Scheduled Provider: Location:[facility] Future Appointments Appointment Date:04/06/2024 12:00:00 PM Scheduled Provider: Location:[facility] Surgical Services Appointment Type:Surgery FT [facility] Evaluation noteNo [facility] [email or web address] Other Evaluation note* Diagnosis Right shoulder pain, unspecified chronicity- Primary documented [facility] encounter [facility] Diagnosis Onset Date Resolution Status Hypertension acute Overweight acute PSVT (paroxysmal supraventricular tachycardia) [facility] Work Phone: Evaluation note* Diagnosis Onset Date Resolution Status Hypertension acute Overweight acute PSVT (paroxysmal supraventricular tachycardia) acute Heart failure with improved ejection fraction (HFimpEF ) acute Nonischemic cardiomyopathy a [facility] Work Phone: Evaluation note* Diagnosis Status post [...] anemia acute PSVT (paroxysmal supraventricular tachycardia) acute [facility] Work Phone: Evaluation note* Diagnosis Status post shoulder surgery- Primary Other postprocedural status documented in this encounter [facility]Evaluation [facility]* Diagnosis Status post shoulder surgery- Primary Other postprocedural status documented in this encounter [facility] HealthcareEvaluation note* Diagnosis S/P arthroscopy of left shoulder- Primary documented in this encounter [facility] HealthcareEvaluation note* Diagnosis S/P arthroscopy of left shoulder- Primary documented in this encounter [facility] HealthcareEvaluation note* Diagnosis Complete tear of left rotator cuff, unspecified whether traumatic- Primary documented in this encounter [facility] HealthcareEvaluation noteNo assessment information availableEast [facility] Work Phone: History general Narrative [...] ORIF, proximal fibula Surgical History [facility] 2011 Surgical History Lumbar fusion Surgical History ACDF C4-6 05/30 Hospitalization History See Above [facility] Other History general Narrative - Reported* Type [...] ORIF, proximal fibula Surgical History [facility] 2011 Surgical History Lumbar fusion Surgical History ACDF C4-6 05/30 Surgical History Right reverse total shoulder ar throplasty 03/2023 Hospitalization History See Above [facility] Other Hospital course Narrative No data available for this section [facility] No data available for this section [facility] No data available for this section [facility] HospitalReason for referral (narrative)No reason for referral information available[facility] Work Phone: Summary Purpose Family History Relationship Condition Age [...] 2024 3:15pm Screening mammogram for breast cancer [facility] 2024 3:15pm Wellness examination August 29, [...] 2024 3:15pm Screening mammogram for breast cancer [facility] 2024 3:15pm Wellness examination August 29, [...] 2024 3:15pm Screening mammogram for breast cancer [facility] 2024 3:15pm Wellness examination August 29, 2024 [...] osteoarthritis, left shoulder Ap ril 2024 1:35pm Chief Complaint Admit Date Itchy w/ no Rash March 06, 2025 9: 17am Additional Source Comments INFORMATION SOURCE (unrecogn ized section and content) DATE CREATED AUTHOR 12/29/2017 [facility] DATE CREATED AUTHOR AUTHOR'S ORGANIZ ATION 05/13/2020 [facility] DATE CREATED AUTHOR AUTHOR'S ORGANIZ ATION 10/15/2022 [facility] DATE CREATED AUTHOR AUTHOR'S ORGANIZ ATION 03/20/2024 [facility] DATE CREATED AUTHOR AUTHOR'S ORGANIZ ATION 04/29/2024 [facility] DATE CREATED AUTHOR AUTHOR'S ORGANIZ ATION 10/06/2024 [facility] DATE CREATED AUTHOR AUTHOR'S ORGANIZ ATION 11/15/2024 [facility] DATE CREATED AUTHOR AUTHOR'S ORGANIZ ATION 11/21/2024 [facility] DATE CREATED AUTHOR AUTHOR'S ORGANIZ ATION 12/05/2024 [facility] DATE CREATED AUTHOR AUTHOR'S ORGANIZ ATION 12/11/2024 [facility] REASON FOR VISIT (unrecogniz ed section [...] Status: Inactive Member Role Status Dates John Ashyb DO Primary Care Provide r, Attending Provider Active Start: March 30, 2024 End: March 30, 2024 Team Status: Inactive Member Role Status Dates John Ashby DO Primary Care Provide r, Attending Provider Active Start: December 28, 2023 End: December 28, 2023 Manager Mobile Relationship Specialty Start Date End Date John Ashby MD [address] [place] [id number] PCP - General Internal Medicine 12/23/22 Manager Mobile Relationship Specialty Start Date End Date John Ashby MD [address] [place] [address] PCP - General Internal Medicine [...] April 10, 2024 End: April 10, 2024 Manager Mobile Relationship Specialty Start Date End Date John Ashby MD [address] [place] [id number] PCP - General Internal Medicine 12/23/22 Team Status: Inactive Member Role Status Dates John Ashby DO Primary Care Provide r, Attending Provider Active Start: April 17, 2024 End: April 17, 2024 Team Status: Inactive Member Role Status Dates John Ashby DO Primary Care Provide r, Attending Provider Active Start: May 09, 2024 End: May 09, 2024 Manager Mobile Relationship Specialty Start Date End Date John Ashby MD [address] [place] [facility] [place] [id number] PCP - General Internal Medicine 12/23/22 Manager Mobile Relationship Specialty Start Date End Date John Ashby MD [address] [place] [facility] [place] [id number] PCP - General Internal Medicine 12/23/22 Manager Mobile Relationship Specialty Start Date End Date John Ashby MD [address] [place] [facility] [address] PCP - General Internal Medicine 12/23/22 Manager Mobile Relationship Specialty Start Date End Date John Ashby MD [address] [place] [facility] [phone] PCP - General Internal Medicine 12/23/22 Team [...] September 25, 2024 End: September 25, 2024 Manager Mobile Relationship Specialty Start Date End Date John Ashby MD [address] [place] [facility] [address] PCP - General Internal Medicine 12/23/22 Team Status: Active Member Role Status Dates John Ashby DO Primary Care Provider Active Start: November 06, 2024 Ethan Padilla , DO Attending Provider Active St art: November 06, 2024 Team Status: Inactive Member Role Status Dates John Ashby DO Primary Care Provider Active Start: November 06, 2024 End: November 06, 2024 Ethan Padilla , DO Attending Provider Active St art: November 06, 2024 End: November 06, 2024 Team Status: Inactive Member Role Status Dates John Ashby DO Primary Care Provider Active Start: March 06, 2025 End: March 06, 2025 John Ashby Attending Provider Active Sta rt: March 06, 2025 End: March 06, 2025 Goals (unrecognized section and content) Goals may [...] BE BASED ON THE PRIMARY CLINICAL RECORDS. [employer] provides no warranty or guarantee of the accuracy or completeness of information in this document.
--- NOTE | 2025-03-08 10:31 | XR_ITS ---
The [address] [address] Patient Name: ALEXANDER ZAIDI MRN: [id number] date: 1960 Sex: F Assigned Patient Location: LAB Current Patient Location: LAB Accession/Order Number: [id number] Exam Date: 03/08/2025 10:38 Report Date: 03/08/2025 13:16 At the request of: RAZIA ASHBY DO Procedure: XR chest 2V PA AND LATERAL CHEST: CLINICAL HISTORY: Nonischemic Cardiomyopathy . Diffuse itching. COMPARISON: 01/02/2021 and 06/25/2019 There is continued elevation of the right hemidiaphragm and blunting of the lateral costophrenic angle. There is no developing consolidation, effusion or pneumothorax. The cardiac, hilar and mediastinal silhouettes are within normal limits. There is no vascular congestion. The visualized bony thorax is intact. Fusion plates are seen at the lower cervical spine. There is a right shoulder prosthesis. XR/XR chest 2V IMPRESSION: NO ACUTE CARDIOPULMONARY ABNORMALITY. Impression dictated by: Cassie Jain M.D. 03/08/2025 1:16 PM Dictation Location: [email or web address] Electronically authenticated by: [id number] Y Date: 03/08/2025 13:16
[2025-03-08 10:43] LABS: Hematocrit 45.0 % (36.0-48.0); Hemoglobin 14.3 g/dL (12.0-16.0); Immature Granulocytes Abs Auto 0.01 10^3/uL (0.00-0.03); Immature Granulocytes Pct Auto 0.1 % (0.0-0.5); Lymphocytes Absolute Auto 1.4 10^3/uL (1.2-3.8); Mean Corpuscular HGB Conc 31.8 g/dL (29.9-35.2); Mean Corpuscular Hemoglobin 30.5 pg (26.7-34.0); Mean Corpuscular Volume 95.9 fL (81.0-99.0); Platelet Count 219 10^3/uL (150-450); Red Blood Count 4.69 10^6/uL (4.20-5.40); White Blood Count 7.0 10^3/uL (4.0-11.0)
[2025-03-08 12:32] LABS: Alanine Aminotransferase 16 U/L (14-59); Albumin Globulin Ratio 1.1; Albumin Level 4.1 g/dL (3.4-5.0); Alkaline Phosphatase 60 U/L (46-116); Anion Gap 12.8; Aspartate Amino Transferase 15 U/L (15-37); Blood Urea Nitrogen 14.0 mg/dL (7.0-18.0); Calcium 10.0 mg/dL (8.5-10.1); Carbon Dioxide 29.0 mmol/L (21.0-32.0); Chloride 105 mmol/L (98-107); Estimated GFR (African America >60 (>=60 mL/min/1.73m^2); Estimated GFR (Non-African Ame 55 (>=60 mL/min/1.73m^2); Globulin 3.6 g/dL; Glucose 86 mg/dL (74-106); Potassium 3.8 mmol/L (3.5-5.1); Sodium 143 mmol/L (136-145); Thyroid Stimulating Hormone 2.029 uIU/mL (0.358-3.740); Total Protein 7.7 g/dL (6.4-8.2)
[2025-03-08 13:17] LABS: Ferritin 127.0 ng/mL (8.0-252.0)
[2025-03-08 13:22] LABS: Iron 207.0 ug/dL (50.0-170.0); Percent Iron Saturation 60.3 %; Total Iron Binding Capacity 343.0 ug/dL (250.0-450.0)
[2025-03-13 13:08] LABS: Albumin 4.1 g/dL (2.9-4.4); Alpha-1-Globulin 0.3 g/dL (0.0-0.4); Alpha-2-Globulin 1.1 g/dL (0.4-1.0); Free Kappa Lt Chains,S 11.8 mg/L (3.3-19.4); Free Lambda Lt Chains,S 6.5 mg/L (5.7-26.3); Gamma Globulin 0.6 g/dL (0.4-1.8); Immunoglobulin A, Qn, Serum 116 mg/dL (87-352); Kappa/Lambda Ratio,S 1.82 (0.26-1.65)
== END 2025-03-08 10:01 | disposition home or self-care (01) ==
LOC: LAB 10:02
PROVIDERS: PCP Internal Medicine; Visit Provider Internal Medicine
DX: L29.9 Pruritus, unspecified (principal); N18.9 Chronic kidney disease, unspecified; D63.1 Anemia in chronic kidney disease; N18.32 Chronic kidney disease, stage 3b; I42.8 Other cardiomyopathies; I10 Essential (primary) hypertension
CPT/HCPCS: 36415; 71046; 80053; 82728; 82784; 83521; 83540; 83550; 84155; 84165; 84443; 85025; 86038; 86334

== ENCOUNTER 2025-04-29 09:43 | Emergency (ER) | payer MEDICARE, SELFPAY ==
[2025-04-29] VITALS (38 sets, daily range): BP systolic 113–163; BP diastolic 63–102; PULSE 65–84; TEMP 36.9; O2SAT 96–100
--- NOTE | 2025-04-29 09:53 | XR_ITS ---
The [address] [address] Patient Name: ALEXANDER ZAIDI MRN: [id number] date: 1960 Sex: F Assigned Patient Location: ER Current Patient Location: Accession/Order Number: [id number] Exam Date: 04/29/2025 10:18 Report Date: 04/29/2025 10:38 At the request of: PINKY LOPEZ Procedure: XR shoulder RT min 2V XR shoulder RT min 2V 04/29/2025 10:27 AM SIGNS AND SYMPTOMS: ^right shoulder injury/pain PROTOCOL: Frontal and lateral radiographs of the right shoulder COMPARISON: 11/29/2024 FINDINGS: Right shoulder arthroplasty hardware is noted. There is anterior dislocation of the humeral component in respect to the glenoid. There is no evidence of fracture. Postoperative changes are noted cervical spine. Mild hypertrophic changes are noted in the acromioclavicular joint. XR/XR shoulder RT min 2V IMPRESSION: Right shoulder arthroplasty hardware is noted. There is anterior dislocation of the humeral component in respect to the glenoid. There is no evidence of fracture. Impression dictated by: Cal Spangler M.D. 04/29/2025 10:38 AM Dictation Location: [place] [address] Electronically authenticated by: [id number] Y Date: 04/29/2025 10:38
--- NOTE | 2025-04-29 11:07 | ED.UPPEXIN1 ---
HPI HPI - Extremity Injury (Upper) General Chief Complaint: Extremity Injury, Upper Stated Complaint: R SHOULDER PAIN Time Seen by Provider: 04/29/25 09:51 Source: patient Mode of arrival: walk-in Limitations: no limitations History of Present Illness HPI narrative: cc - left shoulder pain Pt said that she had her grandchild sitting on her lap when she suddenly felt pain in the right shoulder when she went to move it. Now she is unable to move it - it may be out of place . Prior right shoulder replacement by Dr Barron at [facility] in [place]. She had recently been evaluated by an orthopedic surgeon in [place] - she cannot remember the name - to get her left shoulder evaluated. She is able to move her right hand/fingers. No loss of sensation to the right UE. Related Data Home Medications ?Medication ?Instructions ?Recorded ?Confirmed bupropion HCl 150 mg tablet,12 hr 150 mg PO DAILY 12/15/22 04/29/25 sustained-release (Wellbutrin SR) citalopram 20 mg tablet (Celexa) 20 mg PO DAILY 12/15/22 04/29/25 leflunomide 10 mg tablet (Arava) 10 mg PO DAILY 12/15/22 04/29/25 metoprolol succinate 25 mg 25 mg PO DAILY 12/15/22 04/29/25 tablet,extended release 24 hr (Toprol XL) calcium carbonate (Calcium 600) 600 mg PO DAILY 04/29/25 04/29/25 Previous Rx's ?Medication ?Instructions ?Recorded tizanidine 4 mg tablet (Zanaflex) See Rx Instructions .Route 11/24/23 .COMPLEX PRN muscle spasticity #360 tabs pregabalin 150 mg capsule (Lyrica) 150 mg PO TID #270 caps 06/26/24 hydrocodone 5 mg-acetaminophen 325 1 tab PO TID PRN pain #90 tabs 02/13/25 mg tablet hydrocodone 5 mg-acetaminophen 325 1 tab PO Q6H PRN pain #10 tabs 04/29/25 mg tablet ondansetron 4 mg disintegrating 4 mg PO Q6H PRN nausea and 04/29/25 tablet vomiting #20 tabs Allergies Allergy/AdvReac Type Severity Reaction Status Date / Time No Known Drug Allergies Allergy Verified 11/19/24 08:50 Opioid HPI Opioid Management Most Recent Pain and Opioid Data: Last Pain Scale 8 Today, 12:22 Last MAR Pain Assessment Today, 11:[facility] Medical History Neck pain ?M54.2 - Cervicalgia (ICD-10) Low back pain ?M54.50 - Low back pain, unspecified (ICD-10) Osteoarthritis ?M19.90 - Unspecified osteoarthritis, unspecified site (ICD-10) Rheumatoid arthritis ?M06.9 - Rheumatoid arthritis, unspecified (ICD-10) TMJ (dislocation of temporomandibular joint) ?S03.00XA - Dislocation of jaw, unspecified side, initial encounter (ICD-10) Heartburn ?R12 - Heartburn (ICD-10) Pleural effusion ?J90 - Pleural effusion, not elsewhere classified (ICD-10) Irregular heart beat ?I49.9 - Cardiac arrhythmia, unspecified (ICD-10) Surgical History H/O exploratory thoracotomy ?Z98.890 - Other specified postprocedural states (ICD-10) H/O cervical spine surgery ?Z98.890 - Other specified postprocedural states (ICD-10) H/O shoulder surgery ?Z98.890 - Other specified postprocedural states (ICD-10) H/O foot surgery ?Z98.890 - Other specified postprocedural states (ICD-10) H/O: hysterectomy ?Z90.710 - Acquired absence of both cervix and uterus (ICD-10) H/O hand surgery ?Z98.890 - Other specified postprocedural states (ICD-10) H/O lumbosacral spine surgery ?Z98.890 - Other specified postprocedural states (ICD-10) Social History Little interest or pleasure in doing things: not at all Feeling down, depressed, or hopeless: not at all Exam Narrative Exam Narrative: Nurses note and vital signs reviewed and patient is not hypoxic. afebrile General: The patient appears well and in no apparent distress. Patient is resting comfortably on cart. GCS = 15. Skin: Warm, dry, no pallor noted. Head: Normocephalic, atraumatic Neck: Supple, trachea mid-line, no tenderness, no lymphadenopathy. Full ROM and no cervical spinal tenderness. The patient has no step-offs or crepitus noted Eyes: PERRLA, EOMI ENT: No oral or maxillofacial injury. Moist mucous membranes. Cardiovascular: Regular Rate and Rhythm Respiratory: Patient is in no distress, no accessory muscle use, lungs are clear to auscultation, no wheezing, rales or rhonchi Musculoskeletal: Deformity at the right shoulder-anterior dislocation. She is neurovascularly intact distally. Marked tenderness throughout that right shoulder and inability to move secondary to the dislocation and pain. no additional sign of long bone fracture - no elbow, forearm, hand tenderness or swelling. Pulses at brachial and radial right upper extremity 2+. Moves remaining 3 extremities in all modalities with 5/5 strength. Neurological: A&O x4, normal equal shake maker strength, normal finger to nose, normal speech, normal coordination, normal motor, normal sensory. Psychiatric: Cooperative Constitutional Vital Signs, click to edit/add: Last Vital Signs Temp 98.4 F 04/29/25 09:49 Pulse 69 04/29/25 12:22 Resp 18 04/29/25 12:10 BP 146/76 H 04/29/25 12:20 Pulse Ox 98 04/29/25 12:17 O2 Del Method Nasal Cannula 04/29/25 12:17 O2 Flow Rate 2 04/29/25 12:17 Course Vital Signs Vital signs: Vital Signs Temperature 98.4 F 04/29/25 09:49 Pulse Rate 84 04/29/25 09:49 Respiratory Rate 18 04/29/25 09:49 Blood Pressure 120/63 04/29/25 09:49 Pulse Oximetry 97 04/29/25 09:49 Oxygen Delivery Method Room Air 04/29/25 09:49 Temperature 98.4 F 04/29/25 09:49 Pulse Rate 69 04/29/25 12:22 Respiratory Rate 18 04/29/25 12:10 Blood Pressure 146/76 H 04/29/25 12:20 Pulse Oximetry 98 04/29/25 12:17 Oxygen Delivery Method Nasal Cannula 04/29/25 12:17 Oxygen Delivery Flow Rate 2 04/29/25 12:17 MDM - Extremity Injury (Upper) MDM Narrative Medical decision making narrative: X-ray of the right shoulder was obtained. Anterior dislocation of the right shoulder joint was identified but no fracture was noted by the radiologist. I informed the patient of our findings and diagnosis and need for procedural sedation in order to obtain closed reduction of the dislocated right shoulder. I explained the procedure to the patient and described the medications that we plan on using. The patient was agreeable to this and gave verbal consent as well as signed consent for the procedure with all risks and benefits, plus alternative options, discussed. Patient was placed on lunchroom monitor and peripheral IV obtained. 2 L per minute nasal cannula was placed and continuous pulse ox monitoring was started. The patient was ordered to receive 4 mg IV Zofran and 0.5 mg Dilaudid IV. She received 15 mg of etomidate in order to attempt to reduce the dislocated right shoulder. I used abduction with external rotation and gentle traction but was unable to reduce the shoulder. A sling was placed on the patient's right upper extremity and she was able to return to baseline following sedation. I called the orthopedist on-call. At 1300, I spoke with Dr. Silva to discuss the case and he told me he would look at the imaging and call me back. I spoke with Dr. Silva again at 1350 and arrangements were made for the patient be seen in the [place] office tomorrow with the anticipation that she will likely need close reduction in the OR -she can be reevaluated tomorrow and that can be scheduled at that time. I made him aware that she was n a lot of pain and required multiple doses of opiates and a dose of versed. The patient was informed of this and I discharged her home with a prescription for Boyden. Imaging Data xr shou: Attestation: I have reviewed the pertinent imaging results. Radiologist's impression: ITS Impressions Shoulder X-Ray 04/29/25 09:53 IMPRESSION: Right shoulder arthroplasty hardware is noted. There is anterior dislocation of the humeral component in respect to the glenoid. There is no evidence of fracture. Impression dictated by: Cal Spangler M.D. 04/29/2025 10:38 AM Dictation Location: [employer] Electronically authenticated by: [id number] Y Date: 04/29/2025 10:38 Discharge Plan Discharge Chief Complaint: Extremity Injury, Upper Clinical Impression: Dislocation closed, shoulder Patient Disposition: Home, Self-Care Time of Disposition Decision: 14:01 Prescriptions / Home Meds: New hydrocodone-acetaminophen 5-325 mg tablet 1 tab PO Q6H PRN (Reason: pain) Qty: 10 0RF ondansetron 4 mg tablet,disintegrating 4 mg PO Q6H PRN (Reason: nausea and vomiting) Qty: 20 0RF No Action pregabalin [Lyrica] 150 mg capsule 150 mg PO TID Qty: 270 0RF leflunomide [Arava] 10 mg tablet 10 mg PO DAILY citalopram [Celexa] 20 mg tablet 20 mg PO DAILY bupropion HCl [Wellbutrin SR] 150 mg tablet sustained-release 12 hr 150 mg PO DAILY metoprolol succinate [Toprol XL] 25 mg tablet extended release 24 hr 25 mg PO DAILY tizanidine [Zanaflex] 4 mg tablet See Rx Instructions .ROUTE .COMPLEX PRN (Reason: muscle spasticity) Qty: 360 0RF Rx Instructions: take one tab each morning and 3 tabs at bedtime daily hydrocodone-acetaminophen 5-325 mg tablet 1 tab PO TID PRN (Reason: pain) Qty: 90 0RF calcium carbonate [Calcium 600] 600 mg calcium (1,500 mg) tablet 600 mg PO DAILY Print Language: Montserratian Instructions: Shoulder Dislocation (ED) Additional Instructions: written prescription for Boyden 5/325 #10 given Referrals: Ethan Padilla DO [Physician, Orthopedics] - 04/30/25
--- OUTSIDE RECORDS SUMMARY | 2025-04-29 11:18 | XMS_ITS | CCD ---
Author Organization [facility] Care Team Providers Care Vessel Specialist Name Role Phone BASIM, BARRY H. Unavailable [...] SO [employer] Unavailable OLIVAS ., JACQUIE Lanedrs Unavailable SYMONE, DR LOPEZ Primary Care Unavailable [...] Referring Unavailable Brown, Jordan A Attending Unavailable CAROLINA ZHONG Attending Unavailable John Ashby DO Primary Care Provider John Ashby DO Attending Provider Giedraitis , Andrius Borden Attending Unavailable Giedraitis , Andrius Vytautflor Attending Unavailable Giedraitis , Andrius Vytautas Attending Unavailable Giedraitis , Andrius Vytautas Attending Unavailable Allergies Allergy Classification Reported Allergen(s) Allergy Type Date of Onset Reaction(s) Facility (1 source) 47299,[id number]; Translations: [Unknown] Propensity to adverse reactions (disorder) 2 [facility] Repository (20 sources) Cephalexin; Translations: [CEPHALEXIN] Drug Allergy 8 GI intolerance [facility] Work Phone: (7 sources) patient allergy list reviewed by nurse or physicia Propensity to adverse reactions 4 Comment:Done PHARMAJET Other (1 source) Cephalexin Drug Allergy 5 [facility] Repository Medications Current Medications Medication Drug Class(es) [...] tablets by mouth every four hours HYDROcodone-acetaminophen ([place]) 5-325 MG tablet Indications: Status post shoulder [...] 03/19/24 Status: Ordered Start: 06-30-2023 HYDROcodone-ac etaminophen ([place]) 5-325 MG tablet 06/30/2023 Active Start: 06-30-2023 take 1 tablet by anne th three times daily as needed HYDROcodone-acetaminophen ([place]) 5-325 MG tablet TAKE 1 TABLET BY MOUTH 3 TIMES A DAY NEEDED FOR PAIN*MUS LAST 30 DAYS 06/30/2023 Active acetaminophen 325 mg / oxyCODONE hydrochloride 5 mg oral tablet (20 sources) Opioid Agonist Start: 04-27-2024 Percocet 5 mg- 325 mg oral tablet See Instructions, 40 tab(s), Refill(s) 0, 1-2 tab(s) Oral q4hr, [facility]/pharmacy #[id number], 165, cm, 03/19/24 13:53:00 EDT, Height/Length Dosing, 65, kg, 03/19/24 13:53:00 EDT, Weight Dosing Start Date: 04/27/24 Status: Ordered Start: 04-06-2023 Percocet 5 mg- 325 mg oral tablet See Instructions, 40 tab(s), Refill(s) 0, 1-2 tab(s) Oral q4hr, [facility]/pharmacy #[id number], 160, cm, 03/25/23 6:16:00 EDT, Height/Length [...] 22, 2023 12:31pm take 1 tablet by [facility] twice daily in the morning buPROPion HCl ER (XL) 300 MG 1 tablet in the morning Orally twice daily for 90 days Active take 1 tablet by [facility] every twenty-four hours buPROPion HCl ER (XL) [...] pain, # 60 cap(s), Refills(s) 0, Pharmacy: [facility]/pharmacy #[id number], 165, cm, 03/19/24 13:53:00 EDT, Height/Length Dosing, 65, kg, 03/19/24 13:53:00 EDT, Weight Dosing Start Date: 04/27/24 Status: Ordered Start: 04-06-2023 take 1 capsule by [facility] twice daily as needed for pain CeleBREX 100 mg Cap 100 mg = 1 cap(s), Oral, BID, PRN for pain, # 60 cap(s), Refills(s) 0, Pharmacy: [facility]/pharmacy #[id number], 160, cm, 03/25/23 6:16:00 EDT, Height/Length Dosing, 73.5, kg, 03/25/23 6:16:00 EDT, Weight Dosing Start Date: 04/06/23 Status: Ordered cephalexin 500 mg oral capsule (1 source) Cephalosporin Antibacterial Start: 04-06-2023 End: 04-13-2023 take 1 capsule by mouth every eight hours Keflex 500 mg Cap 500 mg = 1 cap(s), Oral, q8hr, X 7 day(s), # 21 cap(s), Refills(s) 0, Pharmacy: [facility]/pharmacy #[id number], 160, cm, 03/25/23 6:16:00 EDT, Height/Length Dosing, 73.5, kg, 03/25/23 6:16:00 EDT, Weight Dosing Start Date: 04/06/23 Stop Date: 04/13/23 Status: Ordered citalopram 10 mg oral tablet (20 sources) Serotonin Reuptake Inhibitor Start: 12-10-2024 take 1 tablet by mouth once daily Citalopram 10 mg tablet Active 10 MG PO Daily December 10, 2024 8:39am Complies with drug therapy Start: 07-24-2024 [...] 10 mg tablet Disc ontinued 0 [address] [id number] January 26, 2024 8:54am July 24, 2024 8:42am TAKE 1 TABLET DAILY Start: 01-26-2024 End: 07-24-2024 Citalopram 10 mg tablet Disc ontinued 0 .R[place]TE [place] January 26, 2024 7:54am July 24, 2024 7:42am TAKE 1 TABLET DAILY Start: 01-26-2024 Citalopram Act hal 0 [address] [address] January 26, 2024 8:54am TAKE 1 TABLET [...] Start: 04-27-2024 take 1 capsule by mo [facility] twice daily as needed for constipation Colace 100 mg Cap 100 mg = 1 cap(s), Oral, BID, PRN for constipation, # 20 cap(s), Refills(s) 0, [id number], 165, cm, 03/19/24 13:53:00 EDT, Height/Length Dosing, 65, kg, 03/19/24 13:53:00 EDT, Weight Dosing Start Date: 04/27/24 Status: Ordered Start: 04-06-2023 take 1 capsule by [facility] twice daily as needed for constipation Colace 100 mg Cap 100 mg = 1 cap(s), Oral, BID, PRN for constipation, # 20 cap(s), Refills(s) 0, [id number], 160, cm, 03/25/23 6:16:00 EDT, [...] BREAKFAST ondansetron 4 mg disintegrating oral tablet (8 sources) Serotonin-3 Receptor Antagonist Start: 04-13-2024 take [...] every week 3 April 17, 2024 12:00am tiZANidine 4 mg oral [...] (Original) alendronic acid 70 mg oral tablet (14 sources) Bisphosphonate Start: 06-30-2018 End: 09-27-2023 take [...] Not-Taking/PRN Start: 04-21-2018 take 1 tablet by [facility] every twelve hours Calcium 600 MG 1 tablet with meals Orally Twice a day Apr, Not-Taking 24 hr dilTIAZem hydrochloride 360 mg extended release oral tablet (14 sources) Calcium Channel Lisandra Start: 06-30-2018 End: [...] Start: 06-28-2023 take 1 capsule by mo [facility] every twelve hours Doxycycline Hyclate 100 MG 1 capsule Orally Twice a day for 5 days Jun, Active Start: 07-06-2018 End: 09-27-2023 take 1 tablet by mouth twice daily Doxycycline Hyclate 100 mg tablet Discontinued 100 MG PO Twice daily 10 July 06, 2018 1:00am September 27, 2023 2:50pm ibuprofen 800 mg oral tablet (14 sources) Nonsteroidal Anti-inflammatory Drug Start: 07-06-2018 End: [...] day for 30 days Jul, Active Semaglutide (4 sources) Start: 10-23-2024 End: 10-23-2024 inject 2 [...] 11:00pm traZODone hydrochloride 100 mg oral tablet (14 sources) Serotonin Reuptake Inhibitor Start: 06-30-2018 End: [...] Echo: LVEF 61%, normal RV size/function, RVSP 25 - 03/2024,Echo: LVEF 55%, normal RV size/function, RVSP 28 11/2024 Deficiency and other anemia (20 sources) Anemia; Translations: [Anemia, unspecified] 09-27-2023 Episodic Deficiency and other anemia (5 sources) Anemia, unspecified; Translations: [Anemia, unspecified] Onset: 09-17-2022 Episodic Deficiency and other anemia (8 sources) Pernicious anemia; Translations: [Vitamin B12 deficiency anemia due to intrinsic factor deficiency] 04-16-2024 Episodic Deficiency and other anemia (7 sources) Vitamin B12 deficiency anemia due to intrinsic factor deficiency; Translations: [Pernicious anemia] 04-17-2024 Episodic Disorders of lipid metabolism (8 sources) Hypercholesterolemia; Translations: [Pure hypercholesterolemia, unspecified] Onset: 11-04-2023 08-29-2024 Chronic Essential hypertension (20 sources) Essential hypertension; Translations: [Essential (primary) hypertension] Chronic Fluid and electrolyte disorders (4 sources) Dehydration; Translations: [Dehydration] Episodic Hypertension with complications and secondary hypertension (8 sources) Hypertensive renal disease; Translations: [Hypertensive chronic [...] monitoring] Episodic Other aftercare (3 sources) Other assistant terminal manager (current) drug therapy; Translations: [Long-term (current) use of other medications] Onset: 09-17-2022 04-17-2024 Episodic Other aftercare (8 sources) Therapeutic drug level - finding; Translations: [Encounter for therapeutic drug level monitoring] Episodic Other aftercare (2 sources) Encounter for therapeutic drug level monitoring; Translations: [Encounter for therapeutic drug level monitoring] Episodic Other aftercare (6 sources) Drug therapy finding; Translations: [Other intermediate (current) drug therapy] 04-17-2024 Episodic Other aftercare (2 sources) Taking high risk medication; Translations: [Other intermediate (current) drug therapy] 04-17-2024 Episodic Other circulatory [...] traumatic] 10-18-2024 Episodic Other connective tissue disease (3 sources) Tear of left rotator cuff; Translations: [Unspecified rotator cuff tear or rupture of left shoulder, not specified as traumatic] 11-06-2024 Episodic Other connective tissue disease (1 source) Unspecified rotator cuff tear or rupture of left shoulder, not specified as traumatic; Translations: [Rotator cuff (capsule) sprain] 11-06-2024 Episodic Other inflammatory condition of skin (2 sources) Pruritus, unspecified; Translations: [Pruritus] 03-06-2025 Episodic Other liver diseases (2 sources) Enzyme [...] Onset: 02-16-2022 Episodic Other non-traumatic joint disorders (5 sources) Pain in left shoulder; Translations: [Left [...] conditions (not mental disorders or infectious disease) (18 sources) Encounter for screening mammogram for malignant [...] Echo: LVEF 61%, normal RV size/function, RVSP 25 03/2024,Echo: LVEF 55%, normal RV size/function, RVSP 28 - 11/2024 Mae-; endo-; and myocarditis; cardiomyopathy (except [...] (5 sources) History of lung lobectomy 03-24-2023 Unclassified (2 sources) Pruritus; Translations: [L29.9 - Pruritus, unspecified] 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 [...] Test Name Value Interpretation Reference Range Facility Albumin [Mass/volume] in Ser um or PlasmaOrdered By: John Ashby on 03-08-2025 Albumin [Mass/Vol] 4.1 g/dL 2.9-4.4 [facility] Basophils Auto (Bld) [#/Vol] Ordered By: John Ashby on 03-08-2025 Basophils (Bld) [#/Vol] 0.1 10 3/uL 0.0-0.1 [facility] Basophils/100 WBC Auto (Bld) Ordered By: John Ashby on 03-08-2025 Basophils/100 WBC (Bld) 1.0 % 0.2-2.0 F [facility] Eosinophils/100 WBC Auto (Bl d)Ordered By: John Ashby on 03-08-2025 Eosinophils/100 WBC (Bld) 6.7 % 0.9-7.0 [facility] Erythrocyte distribution wid th Auto (RBC) [Ratio]Ordered By: John Ashby on 03-08-2025 Erythrocyte distribution width (RBC) [Ratio] 12.8 % 11.0-15.0 [facility] Globulin Calc (S) [Mass/Vol] Ordered By: John Ashby on 03-08-2025 Globulin (S) [Mass/Vol] 3.6 g/dL F [facility] Glomerular filtration rate ( GFR) estimation in non- AmericanOrdered By: John Ashby on 03-08-2025 GFR/1.73 sq M.predicted among non-blacks MDRD (S/P/Bld) [Vol rate/Area] 55 mL/min/{1.73_m2} Low >=60 mL/min/1.7 3m 2 [facility] Hematocrit Auto (Bld) [Volum e fraction]Ordered By: John Ashby on 03-08-2025 Hematocrit (Bld) [Volume fraction] 45.0 % 36.0-48.0 [facility] Hemoglobin [Mass/volume] in BloodOrdered By: John Ashby 03-08-2025 Hemoglobin (Bld) [Mass/Vol] 14.3 g/dL 12.0-16.0 [facility] IgA [Mass/volume] in Serum o r PlasmaOrdered By: John Ashby on 03-08-2025 IgA [Mass/Vol] 116 mg/dL 87-352 [facility] IgG [Mass/volume] in Serum o r PlasmaOrdered By: John Ashby on 03-08-2025 IgG [Mass/Vol] 751 mg/dL 586-1602 [facility] IgM [Mass/volume] in Serum o r PlasmaOrdered By: John Ashby 03-08-2025 IgM [Mass/Vol] 69 mg/dL 26-217 [facility] Immunoglobulin light chains. kappa.free [Mass/volume] in SerumOrdered By: John Ashby on 03-08-2025 Immunoglobulin light chains.kappa.free (S) [Mass/Vol] 11.8 mg/L 3.3-19.4 [facility] Immunoglobulin light chains. kappa.free/Immunoglobulin light chains.lambda.free [MassOrdered By: John Ashby on 03-08-2025 Immunoglobulin light chains.kappa.free/Immun oglobulin light chains.lambda.free (S) [Mass ratio] 1.82 Abnormal 0.26-1.65 [facility] Comment on above: Performed at: [address] [id number] Director: Lito Matamoros PhD, Phone: [phone] Immunoglobulin light chains. lambda.free [Mass/volume] in Serum or PlasmaOrdered By: John Ashby on 03-08-2025 Immunoglobulin light chains.lambda.free [Mass/Vol] 6.5 mg/L 5.7-26.3 [facility] Iron binding capacity [Mass/ volume] in Serum or PlasmaOrdered By: John Ashby on 03-08-2025 Iron binding capacity [Mass/Vol] 343.0 ug/dL 250.0-450. 0 [facility] Iron saturation [Mass Fracti on] in Serum or PlasmaOrdered By: John Ashby on 03-08-2025 Iron saturation [Mass fraction] 60.3 % [facility] Laboratory - Chemistry and C hemistry - challengeOrdered By: John Ashby on 03-08-2025 ALP [Catalytic activity/Vol] 60 U/L 46-116 [facility] ALT [Catalytic activity/Vol] 16 U/L 14-59 [facility] AST [Catalytic activity/Vol] 15 U/L 15-37 [facility] Bilirubin [Mass/Vol] 0.5 mg/dL 0.2-1.0 [facility] Calcium [Mass/Vol] 10.0 mg/dL 8.5-10.1 [facility] Chloride [Moles/Vol] 105 mmol/L 98-107 [facility] CO2 [Moles/Vol] 29.0 mmol/L 21.0-32.0 [facility] Creatinine [Mass/Vol] 1.01 mg/dL 0.55-1.02 [facility] Ferritin [Mass/Vol] 127.0 ng/mL 8.0-252.0 [facility] GFR/1.73 sq M.predicted MDRD (S/P/Bld) [Vol rate/Area] mL/min/{1.73_m2} >=60 mL/min/1.7 3m 2 [facility] Glucose [Mass/Vol] 86 mg/dL 74-106 [facility] Iron [Mass/Vol] 207.0 ug/dL High 50.0-170.0 [facility] Potassium [Moles/Vol] 3.8 mmol/L 3.5-5.1 [facility] Protein [Mass/Vol] 7.7 g/dL 6.4-8.2 [facility] Sodium [Moles/Vol] 143 mmol/L 136-145 [facility] TSH Qn 2.029 m[IU]/L 0.358-3.74 0 [facility] Urea nitrogen [Mass/Vol] 14.0 mg/dL 7.0-18.0 [facility] Urea nitrogen/Creatinine [Mass ratio] 13.9 mg/mg [facility] Laboratory - Hematology and Cell countsOrdered By: John Ashby on 03-08-2025 Immature granulocytes/100 WBC (Bld) 0.1 % 0.0-0.5 [facility] Leukocytes [#/volume] correc fito for nucleated erythrocytes in Blood by Automated counOrdered By: John Ashby on 03-08-2025 WBC corrected for nucl RBC Auto (Bld) [#/Vol] 7.0 10 3/uL 4.0-11.0 [facility] Lymphocytes Auto (Bld) [#/Vo l]Ordered By: John Ashby on 03-08-2025 Lymphocytes (Bld) [#/Vol] 1.4 10 3/uL 1.2-3.8 [facility] Lymphocytes/100 WBC Auto (Bl d)Ordered By: John Ashby on 03-08-2025 Lymphocytes/100 WBC (Bld) 20.3 % Low 20.5-60.0 [facility] MCH Auto (RBC) [Entitic mass ]Ordered By: John Ashby on 03-08-2025 MCH (RBC) [Entitic mass] 30.5 pg 26.7-34.0 [facility] MCHC Auto (RBC) [Mass/Vol]Or dered By: John Ashby on 03-08-2025 MCHC (RBC) [Mass/Vol] 31.8 g/dL 29.9-35.2 [facility] MCV Auto (RBC) [Entitic vol] Ordered By: John Ashby on 03-08-2025 MCV (RBC) [Entitic vol] 95.9 fL 81.0-99.0 F [facility] Monocytes Auto (Bld) [#/Vol] Ordered By: John Ashby on 03-08-2025 Monocytes (Bld) [#/Vol] 0.5 10 3/uL 0.3-0.8 [facility] Monocytes/100 WBC Auto (Bld) Ordered By: John Ashby on 03-08-2025 Monocytes/100 WBC (Bld) 7.3 % 1.7-12.0 F [facility] Neutrophils Auto (Bld) [#/Vo l]Ordered By: John Ashby on 03-08-2025 Neutrophils (Bld) [#/Vol] 4.5 10 3/uL 1.4-6.5 [facility] Neutrophils/100 WBC Auto (Bl d)Ordered By: John Ashby on 03-08-2025 Neutrophils/100 WBC (Bld) 64.6 % 43.0-75.0 [facility] No Panel InformationOrdered By: John Ashby on 03-08-2025 Eosinophils # (Auto) 0.5 10 3/uL 0.0-0.7 [facility] Immature Granulocyte # (Auto) 0.01 10 3/uL 0.00-0.03 [facility] Protein Electrophoresis M-Collin Not Observed g/dL Not Observed [facility] Protein Electrophoresis Note Comment . [facility] Comment on above: Protein electrophore sis scan will follow via computer,mail, or supervisor receiving and processing delivery. Platelet mean volume Auto (B ld) [Entitic vol]Ordered By: John Ashby on 03-08-2025 Platelet mean volume (Bld) [Entitic vol] 9.1 fL Low 9.5-13.5 [facility] Platelets Auto (Bld) [#/Vol] Ordered By: John Ashby on 03-08-2025 Platelets (Bld) [#/Vol] 219 10 3/uL 150-450 [facility] Protein [Mass/volume] in Ser um or PlasmaOrdered By: John Ashby on 03-08-2025 Protein [Mass/Vol] 7.2 g/dL 6.0-8.5 [facility] RBC Auto (Bld) [#/Vol]Ordere d By: John Ashby on 03-08-2025 RBC (Bld) [#/Vol] 4.69 10 6/uL 4.20-5.40 [facility] Serum globulin measurement ( mass/volume)Ordered By: John Ashby on 03-08-2025 Globulin (S) [Mass/Vol] 3.1 g/dL 2.2-3.9 [facility] Serum or plasma albumin/glob ulin mass ratioOrdered By: John Ashby on 03-08-2025 Albumin/Globulin [Mass ratio] 1.1 {ratio} [facility] Albumin/Globulin [Mass ratio] 1.4 {ratio} 0.7-1.7 [facility] Serum or plasma alpha 1 glob ulin measurement by electrophoresis (mass/volume)Ordered By: John Ashby 03-08-2025 Alpha 1 globulin Elph [Mass/Vol] 0.3 g/dL 0.0-0.4 [facility] Serum or plasma alpha 2 glob ulin measurement by electrophoresis (mass/volume)Ordered By: John Ashby on 03-08-2025 Alpha 2 globulin Elph [Mass/Vol] 1.1 g/dL Abnormal 0.4-1.0 [facility] Serum or plasma anion gap de terminationOrdered By: oJhn Ashby on 03-08-2025 Anion gap [Moles/Vol] 12.8 mmol/L [facility] Serum or plasma beta globuli n measurement by electrophoresis (mass/volume)Ordered By: John Ashby 03-08-2025 Beta globulin Elph [Mass/Vol] 1.1 g/dL 0.7-1.3 [facility] Serum or plasma free cefurox roshni measurement (mass/volume)Ordered By: John Ashby on 03-08-2025 Cefuroxime free [Mass/Vol] Negative Negative [facility] Comment on above: Performed at: [facility] [address] [id number] Director: Lito Matamoros PhD, Phone: [phone] Serum or plasma gamma globul in measurement by electrophoresis (mass/volume)Ordered By: John Ashby on 03-08-2025 Gamma globulin Elph [Mass/Vol] 0.6 g/dL 0.4-1.8 [facility] Serum or plasma immunoelectr ophoresis interpretationOrdered By: John Ashby on 03-08-2025 Interpretation IEP [Interp] Comment . [facility] Comment on above: No monoclonality det ected. Office Visiton 12-10-2024 Follow-up visit [id number] Alba Zaidi 1960 F Date Provider Department Center 12/10/2024 Jerry-CAROLINA ZHONG [facility] Family History Problem Relation Age of Onset Coronary artery disease Mother Family Status - Relation Status Age at Mother Father Alive Level of Service:31337 LA OFFICE/OUTPATIENT ESTABLISHED MOD MDM 30 MIN Normal [facility] Orders Onlyon 12-06-2024 Orders Only [id number] Alba Zaidi 1960 F Date Provider Department Center 12/06/2024 [id number], [facility] Family History Family history unknown: Yes Normal [facility] X-ray reportOrdered By: Amaury Wells on 11-06-2024 Study report [facility] [place] [address] [place] [address] XRay Report Signed Patient: Radha Zaidi MR#: [id number] : 1960 Acct:[id number] Age/Sex: 64 / F ADM Date: 5 Loc: [facility] Room: Type: [facility] CLI Attending Dr: Ethan Padilla DO Copies [...] Wells M.D. 11/06/2024 9:08 PM Dictation Location: [place] [address] Transcribed By: [facility] 11/06/242107 Dictated By: Alexi Wells MD 11/06/242105 Signed By: 11/06/242107 [facility] Work Phone: XR shoulder LT min 2V*on XR shoulder LT min 2V* [facility] [address] [place] [address] XRay Report Signed Patient: Radha Zaidi MR#: [id number] : 1960 Acct:[id number] Age/Sex: 64 / F ADM Date: 11/06/24 Loc: [facility] Room: Type: [facility] Attending Dr: Ethan Padilla DO Copies to: [...] Wells M.D. 11/06/2024 9:08 PM Dictation Location: [place] [address] Transcribed By: [facility] 11/06/242107 Dictated By: Alexi Wells MD 11/06/242105 Signed By: 11/06/242107 Normal [facility] MRI Shoulder w/o Contrast Le [...] DO Transcribed by: DANISHA Technologist: TED Gruber [facility] Basophils Auto (Bld) [#/Vol] on 08-31-2024 Basophils (Bld) [#/Vol] Automated basophil count 0.0-0.1 [facility] Basophils/100 WBC Auto (Bld) on 08-31-2024 Basophils/100 WBC (Bld) Automated basophil % 0. 2-2.0 [facility] Cholesterol in LDL Calc [Mas s/Vol]on 08-31-2024 Cholesterol in LDL [Mass/Vol] Cholesterol in LDL [Mass/volume] in Serum or Plasma by calculation [facility] Comment on above: <100 mg/dl [id number] 0-129 mg/dl NEAR OR ABOVE [id number] mg/dl BORDERLINE [id number] mg/dl HIGH>190 mg/dl VERY HIGH Cholesterol in VLDL Calc [Ma ss/Vol]on 08-31-2024 Cholesterol in VLDL [Mass/Vol] Cholesterol in VLDL [Mass/volume] in Serum or Plasma by calculation [facility] Eosinophils/100 WBC Auto (Bl d)on 08-31-2024 Eosinophils/100 WBC (Bld) Automated eosinophil % 0.9-7.0 [facility] Erythrocyte distribution wid th Auto (RBC) [Ratio]on 08-31-2024 Erythrocyte distribution width (RBC) [Ratio] Erythrocyte distribution width [Ratio] by Automated count High 11.0-15.0 [facility] Estimated glomerular filtrat ion rate (GFR) non- Americanon 08-31-2024 GFR/1.73 sq M.predicted among non-blacks MDRD (S/P/Bld) [Vol rate/Area] Estimated glomerular filtration rate (GFR) non- Low >=60 mL/min/1.7 3m 2 [facility] Globulin Calc (S) [Mass/Vol] on 08-31-2024 Globulin (S) [Mass/Vol] Serum globulin m easurement by calculation (mass/volume) [facility] Hematocrit Auto (Bld) [Volum e fraction]on 08-31-2024 Hematocrit (Bld) [Volume fraction] Hematocrit [Volume Fraction] of Blood by Automated count Low 36.0-48.0 [facility] Hemoglobin [Mass/volume] in Bloodon 08-31-2024 Hemoglobin (Bld) [Mass/Vol] Hemoglobin [Mass/volume] in Blood Low 12.0-16.0 [facility] Laboratory - Chemistry and C hemistry - challengeon 08-31-2024 Albumin [Mass/Vol] 3.8 g/dL 3.4-5.0 [facility] ALP [Catalytic activity/Vol] 60 U/L 46-116 [facility] ALT [Catalytic activity/Vol] 15 U/L 14-59 [facility] AST [Catalytic activity/Vol] 9 U/L Low 15-37 [facility] Bilirubin [Mass/Vol] 0.5 mg/dL 0.2-1.0 [facility] Calcium [Mass/Vol] 9.2 mg/dL 8.5-10.1 [facility] Chloride [Moles/Vol] 107 mmol/L 98-107 [facility] Cholesterol [Mass/Vol] 196 mg/dL <=200 [facility] Cholesterol in HDL [Mass/Vol] 68 mg/dL High 40-60 [facility] Comment on above: > or =60 mg/dl - LOW CARDIOVASCULAR RISK<40 mg/dl - HIGH CARDIOVASCULAR RISK CO2 [Moles/Vol] 26.9 mmol/L 21.0-32.0 [facility] Creatinine [Mass/Vol] 1.29 mg/dL High 0.55-1.02 [facility] GFR/1.73 sq M.predicted MDRD (S/P/Bld) [Vol rate/Area] 50 mL/min/{1.73_m2} Low >=60 mL/min/1.7 3m 2 [facility] Glucose [Mass/Vol] 72 mg/dL Low 74-106 [facility] Potassium [Moles/Vol] 4.3 mmol/L 3.5-5.1 [facility] Protein [Mass/Vol] 7.0 g/dL 6.4-8.2 [facility] Sodium [Moles/Vol] 143 mmol/L 136-145 [facility] Triglyceride [Mass/Vol] 66 mg/dL <=150 F [facility] TSH Qn 1.339 m[IU]/L 0.358-3.74 0 [facility] Urea nitrogen [Mass/Vol] 20.0 mg/dL High 7.0-18.0 [facility] Urea nitrogen/Creatinine [Mass ratio] 15.5 mg/mg [facility] Laboratory - Hematology and Cell countson 08-31-2024 Immature granulocytes/100 WBC (Bld) 0.4 % 0.0-0.5 [facility] Leukocytes [#/volume] correc fito for nucleated erythrocytes in Blood by Automated counon 08-31-2024 WBC corrected for nucl RBC Auto (Bld) [#/Vol] Leukocytes [#/volume] corrected for nucleated erythrocytes in Blood by Automated coun 4.0-11.0 [facility] Lymphocytes Auto (Bld) [#/Vo l]on 08-31-2024 Lymphocytes (Bld) [#/Vol] Lymphocytes [#/volume] in Blood by Automated count 1.2-3.8 [facility] Lymphocytes/100 WBC Auto (Bl d)on 08-31-2024 Lymphocytes/100 WBC (Bld) Lymphocytes/100 leukocytes in Blood by Automated count 20.5-60.0 [facility] MCH Auto (RBC) [Entitic mass ]on 08-31-2024 MCH (RBC) [Entitic mass] MCH [Entitic mass] by Automated count 26.7-34.0 [facility] MCHC Auto (RBC) [Mass/Vol]on 08-31-2024 MCHC (RBC) [Mass/Vol] MCHC [Mass/volume] by Automated count 29.9-35.2 [facility] MCV Auto (RBC) [Entitic vol] on 08-31-2024 MCV (RBC) [Entitic vol] MCV [Entitic vol ume] by Automated count High 81.0-99.0 [facility] Microalbumin [Mass/volume] i n Urineon 08-31-2024 Albumin DL <= 20 mg/L (U) [Mass/Vol] Microalbumin [Mass/volume] in Urine <=30.0 [facility] Monocytes Auto (Bld) [#/Vol] on 08-31-2024 Monocytes (Bld) [#/Vol] Automated blood monocyte count 0.3-0.8 [facility] Monocytes/100 WBC Auto (Bld) on 08-31-2024 Monocytes/100 WBC (Bld) Automated monocyte % 1. 7-12.0 [facility] Neutrophils Auto (Bld) [#/Vo l]on 08-31-2024 Neutrophils (Bld) [#/Vol] Neutrophils [#/volume] in Blood by Automated count 1.4-6.5 [facility] Neutrophils/100 WBC Auto (Bl d)on 08-31-2024 Neutrophils/100 WBC (Bld) Automated neutrophil % 43.0-75.0 [facility] No Panel Informationon 08-31 Eosinophils # (Auto) 0.2 10 3/uL 0.0-0.7 [facility] Immature Granulocyte # (Auto) 0.02 10 3/uL 0.00-0.03 [facility] Urine Random Creatinine 176.19 mg/dL 20.0 0-300. 00 [facility] Platelet mean volume Auto (B ld) [Entitic vol]on 08-31-2024 Platelet mean volume (Bld) [Entitic vol] Platelet mean volume [Entitic volume] in Blood by Automated count Low 9.5-13.5 [facility] Platelets Auto (Bld) [#/Vol] on 08-31-2024 Platelets (Bld) [#/Vol] Platelets [#/vol ume] in Blood by Automated count 150-450 [facility] RBC Auto (Bld) [#/Vol]on RBC (Bld) [#/Vol] Erythrocytes [#/volu me] in Blood by Automated count Low 4.20-5.40 [facility] Serum or plasma albumin/glob ulin mass ratioon 08-31-2024 Albumin/Globulin [Mass ratio] Serum or plasma albumin/globulin mass ratio [facility] Serum or plasma anion gap de terminationon 08-31-2024 Anion gap [Moles/Vol] Serum or plasma an ion gap determination [facility] Serum or plasma total choles terol/high density lipoprotein (HDL) cholesterol mass albina 08-31-2024 Cholesterol.total/Theresa sterol in HDL [Mass ratio] Serum or plasma total cholesterol/high density lipoprotein (HDL) cholesterol mass rat [facility] Comment on above: 3.3 - 4.4 LOW RISK4. 4 - 7.1 AVERAGE RISK7.1 - 11.0 MODERATE RISK>11.0 HIGH RISK Urine microalbumin/creatinin e mass ratioon 08-31-2024 Albumin/Creatinine DL <= 20 mg/L (U) [Mass ratio] Urine microalbumin/creatinine mass ratio 0.0-29.9 [facility] Comment on above: NO MICROALBUMINURIA 0-29 MG/GCLINICAL MICROALBUMINURIA 30-300 MG/GMACROALBUMINURIA >300 MG/G Basophils Auto (Bld) [#/Vol] on 06-21-2024 Basophils (Bld) [#/Vol] Automated basophil count 0.0-0.1 [facility] Basophils/100 WBC Auto (Bld) on 06-21-2024 Basophils/100 WBC (Bld) Automated basophil % 0. 2-2.0 [facility] Eosinophils/100 WBC Auto (Bl d)on 06-21-2024 Eosinophils/100 WBC (Bld) Automated eosinophil % 0.9-7.0 [facility] Erythrocyte distribution wid th Auto (RBC) [Ratio]on 06-21-2024 Erythrocyte distribution width (RBC) [Ratio] Erythrocyte distribution width [Ratio] by Automated count 11.0-15.0 [facility] Estimated glomerular filtrat ion rate (GFR) non- Americanon 06-21-2024 GFR/1.73 sq M.predicted among non-blacks MDRD (S/P/Bld) [Vol rate/Area] Estimated glomerular filtration rate (GFR) non- Low >=60 mL/min/1.7 3m 2 [facility] Globulin Calc (S) [Mass/Vol] on 06-21-2024 Globulin (S) [Mass/Vol] Serum globulin m easurement by calculation (mass/volume) [facility] Hematocrit Auto (Bld) [Volum e fraction]on 06-21-2024 Hematocrit (Bld) [Volume fraction] Hematocrit [Volume Fraction] of Blood by Automated count Low 36.0-48.0 [facility] Hemoglobin [Mass/volume] in Bloodon 06-21-2024 Hemoglobin (Bld) [Mass/Vol] Hemoglobin [Mass/volume] in Blood Low 12.0-16.0 [facility] Laboratory - Chemistry and C hemistry - challengeon 06-21-2024 Albumin [Mass/Vol] 3.8 g/dL 3.4-5.0 [facility] ALP [Catalytic activity/Vol] 48 U/L 46-116 [facility] ALT [Catalytic activity/Vol] 13 U/L Low 14-59 [facility] AST [Catalytic activity/Vol] 14 U/L Low 15-37 [facility] Bilirubin [Mass/Vol] 0.5 mg/dL 0.2-1.0 [facility] Calcium [Mass/Vol] 9.1 mg/dL 8.5-10.1 [facility] Chloride [Moles/Vol] 105 mmol/L 98-107 [facility] CO2 [Moles/Vol] 26.1 mmol/L 21.0-32.0 [facility] Creatinine [Mass/Vol] 1.43 mg/dL High 0.55-1.02 [facility] GFR/1.73 sq M.predicted MDRD (S/P/Bld) [Vol rate/Area] 45 mL/min/{1.73_m2} Low >=60 mL/min/1.7 3m 2 [facility] Glucose [Mass/Vol] 76 mg/dL 74-106 [facility] Potassium [Moles/Vol] 3.4 mmol/L Low 3.5-5.1 [facility] Protein [Mass/Vol] 6.7 g/dL 6.4-8.2 [facility] Sodium [Moles/Vol] 144 mmol/L 136-145 [facility] Urea nitrogen [Mass/Vol] 18.0 mg/dL 7.0-18.0 [facility] Urea nitrogen/Creatinine [Mass ratio] 12.6 mg/mg [facility] Laboratory - Hematology and Cell countson 06-21-2024 ESR (Bld) [Velocity] 6 mm/h <=30 [facility] Immature granulocytes/100 WBC (Bld) 0.3 % 0.0-0.5 [facility] Leukocytes [#/volume] correc fito for nucleated erythrocytes in Blood by Automated counon 06-21-2024 WBC corrected for nucl RBC Auto (Bld) [#/Vol] Leukocytes [#/volume] corrected for nucleated erythrocytes in Blood by Automated coun Low 4.0-11.0 [facility] Lymphocytes Auto (Bld) [#/Vo l]on 06-21-2024 Lymphocytes (Bld) [#/Vol] Lymphocytes [#/volume] in Blood by Automated count 1.2-3.8 [facility] Lymphocytes/100 WBC Auto (Bl d)on 06-21-2024 Lymphocytes/100 WBC (Bld) Lymphocytes/100 leukocytes in Blood by Automated count 20.5-60.0 [facility] MCH Auto (RBC) [Entitic mass ]on 06-21-2024 MCH (RBC) [Entitic mass] MCH [Entitic mass] by Automated count 26.7-34.0 [facility] MCHC Auto (RBC) [Mass/Vol]on 06-21-2024 MCHC (RBC) [Mass/Vol] MCHC [Mass/volume] by Automated count 29.9-35.2 [facility] MCV Auto (RBC) [Entitic vol] on 06-21-2024 MCV (RBC) [Entitic vol] MCV [Entitic vol ume] by Automated count 81.0-99.0 [facility] Monocytes Auto (Bld) [#/Vol] on 06-21-2024 Monocytes (Bld) [#/Vol] Automated blood monocyte count 0.3-0.8 [facility] Monocytes/100 WBC Auto (Bld) on 06-21-2024 Monocytes/100 WBC (Bld) Automated monocyte % 1. 7-12.0 [facility] Neutrophils Auto (Bld) [#/Vo l]on 06-21-2024 Neutrophils (Bld) [#/Vol] Neutrophils [#/volume] in Blood by Automated count 1.4-6.5 [facility] Neutrophils/100 WBC Auto (Bl d)on 06-21-2024 Neutrophils/100 WBC (Bld) Automated neutrophil % Low 43.0-75.0 [facility] No Panel Informationon 06-21 Eosinophils # (Auto) 0.1 10 3/uL 0.0-0.7 [facility] Immature Granulocyte # (Auto) 0.01 10 3/uL 0.00-0.03 [facility] Platelet mean volume Auto (B ld) [Entitic vol]on 06-21-2024 Platelet mean volume (Bld) [Entitic vol] Platelet mean volume [Entitic volume] in Blood by Automated count Low 9.5-13.5 [facility] Platelets Auto (Bld) [#/Vol] on 06-21-2024 Platelets (Bld) [#/Vol] Platelets [#/vol ume] in Blood by Automated count 150-450 [facility] RBC Auto (Bld) [#/Vol]on RBC (Bld) [#/Vol] Erythrocytes [#/volu me] in Blood by Automated count Low 4.20-5.40 [facility] Serum or plasma albumin/glob ulin mass ratioon 06-21-2024 Albumin/Globulin [Mass ratio] Serum or plasma albumin/globulin mass ratio [facility] Serum or plasma anion gap de terminationon 06-21-2024 Anion gap [Moles/Vol] Serum or plasma an ion gap determination [facility] No Panel Informationon 06-05 Kate Scruggs, ARR T 06/09/2024 1:08 PM L Inj/Asp: L glenohumeral on 06/05/2024 2:26 PM Indications: pain Details: 25 G needle, ultrasound-guided Medications: 2 mL betamethasone acetate-betamethasone sodium phosphate 6 (3-3) MG/ML Consent was given by the patient. [facility] Chat& (ChatAnd) XR Shoulder - left 2 Viewson 05-09-2024 Imaging Result: 3 views left shoulder, Grashey/Zanca/outlet, taken today and saved to the permanent medical record are reviewed. No fractures. ACI WNL [facility] Chat& (ChatAnd) XR Shoulder - left 2 Viewson 05-08-2024 Radiology Study observation (narrative) [facility] Main OR Intraoperative Recor don 04-30-2024 Main OR Intraoperative Record Main OR Intraoperative Record Normal [facility] CBC w/ Auto Diffon -[id number] 4 Basophils/100 WBC (Bld) 1.3 % Normal 0.0-2.0 [facility] Comment on above: Performed By: #### 2 [id number] ####[facility] [address] [place] [address] Basophils/Leukocytes Auto (Bld) [Pure # fraction] 0.1 E9/L Normal 0.0-0.2 [facility] Comment on above: Performed By: #### 2 [id number] ####[facility] [address] [place] [address] Eosinophils (Bld) [#/Vol] 0.2 E9/L Normal 0.0-0.5 [facility] Comment on above: Performed By: #### 2 030936 ####[address] [address] Eosinophils/100 WBC (Bld) 3.7 % Normal 0.0-8.0 [facility] Comment on above: Performed By: #### 2 [id number] ####[facility] [address] [place] [address] Erythrocyte distribution width (RBC) [Ratio] 15.3 % High 10.9-14.2 [facility] Comment on above: Performed By: #### 2 835886 ####[facility] [address] [place] [address] Hematocrit (Bld) [Volume fraction] 27.7 % Low 34.0-46.0 [facility] Comment on above: Performed By: #### 2 619613 ####[facility] [address] [place] [address] Hemoglobin (Bld) [Mass/Vol] 9.6 g/dL Low 12.0-16.0 [facility] Comment on above: Performed By: #### 2 384126 ####[facility] [address] [place] [address] Lymphocytes (Bld) [#/Vol] 0.9 E9/L Low 1.0-4.0 [facility] Comment on above: Performed By: #### 2 [id number] ####[address] [address] Lymphocytes/100 WBC (Bld) 20.4 % Normal 14.0-50.0 [facility] Comment on above: Performed By: #### 2 133346 ####[address] [address] MCH (RBC) [Entitic mass] 33.7 pg Normal 27.0-34.0 [facility] Comment on above: Performed By: #### 2 079321 ####[address] [address] MCHC (RBC) [Mass/Vol] 34.6 g/dL Normal 31.4-36.0 [facility] Comment on above: Performed By: #### 2 337698 ####[address] [address] MCV (RBC) [Entitic vol] 97.3 fL Normal 80.0-100.0 [facility] Comment on above: Performed By: #### 2 338468 ####[address] [address] Monocytes (Bld) [#/Vol] 0.8 E9/L Normal 0.2-1.0 [facility] Comment on above: Performed By: #### 2 510995 ####[address] [address] Neutrophils (Bld) [#/Vol] 2.4 E9/L Normal 2.0-7.5 [facility] Comment on above: Performed By: #### 2 445991 ####[address] [address] Neutrophils/100 WBC (Bld) 55.1 % Normal 36.0-75.0 [facility] Comment on above: Performed By: #### 2 402802 ####[address] [address] Platelet 213.0 E9/L Normal 150.0-500. 0 [facility] Comment on above: Performed By: #### 2 788089 ####[facility] [address] [place] [address] Platelet mean volume (Bld) [Entitic vol] 7.0 fL Normal 6.4-10.8 [facility] Comment on above: Performed By: #### 2 043549 ####[facility] [address] [place] [address] RBC (Bld) [#/Vol] 2.9 E12/L Low 4.3-5.9 [facility] Comment on above: Performed By: #### 2 058124 ####[facility] [address] [place] [address] WBC corrected for nucl RBC Auto (Bld) [#/Vol] 4.3 E9/L Normal 4.0-11.0 [facility] Comment on above: Result Comment: Mae pheral smear review performed. Performed By: #### 2 635031 ####[facility] [address] [place] [address] Discharge Instructionson Discharge Instructions Discharge Instruc tions RADHA ZAIDI :1960 Visit Date:04/27/2024 Inpatient Discharge [...] has already been scheduled Where: [address] [place] [address]- Business (1) Medications What How Much When Instructions Next Dose New acetaminophen-oxycodone (Percocet 5 mg-325 mg oral tablet) See instructions 1-2 tab(s) Oral q4hr Pickup at [facility]/pharmacy #[id number] New celecoxib (CeleBREX 100 mg Cap) 1 Capsules By Mouth 2 times a day as needed for for pain Pickup at [facility]/pharmacy #[id number] New docusate (Colace 100 mg Cap) 1 Capsules By Mouth 2 times a day as needed for for constipation Pickup at [facility]/pharmacy #[id number] Unchanged buPROPion (Wellbutrin XL 300 mg/ [...] Tablets By Mouth Every day Pharmacy Information [facility]/pharmacy #[id number]: [address], [place] [phone] What How Much When Comments Stop Taking acetaminophen-hydrocodone (acetaminophen-hydrocodone 325 mg-5 mg oral tablet) 1 Tablets By Mouth Every 6 hours Education Materials [place] [place] [facility] AFTER YOUR SHOULDER ARTHROSCOPY [...] t (more content not included)... Normal [facility] Comment on above: Result Comment: Elec tronically Signed By: Rebecca HARO, Rodger Vergara\.br\Date and Time Signed: 04/27/24 10:11 EDT HEMATOLOGYOrdered By: SYSTEM SYSTEM on 04-27-2024 Basophils/100 WBC (Bld) 1.3 % Normal 0.0 - 2.0 % Remisol Heme Basophils/Leukocytes Auto (Bld) [Pure # fraction] 0.1 E9/L [...] 04-27-2024 Inpatient Patient Summary Inpatient Patient Summary [address] [address] [facility] Clinical Discharge Instructions PERSON INFORMATION Name: RADHA ZAIDI PHYSICIANS Admitting Physician: Jordan Yuan DO Attending Physician: Jordan Yuan DO PCP: JOHN ASHBY DO Discharge Diagnosis: Comment: PATIENT EDUCATION INFORMATION Instructions: Iris Yuan - After Your Shoulder Arthroscopy (Custom) Medication Leaflets: Follow up: MEDICATION LIST New Medications [id number], [address], [place] [id number], [phone] acetaminophen-oxycodone (Percocet 5 mg-325 mg oral tablet) [...] By Mouth every 6 hours. Comment: Alyssa [facility] Main OR PACU I Recordon 04-10 Main OR PACU I Record Main OR PACU I Rec ord PACU Phase I Document Type FT Summary Primary Physician: Jordan Yuan DO Finalized Date/Time: 04/27/24 11:12:00 Pt. Name: DYANRADHA/Sex: 1960 Female Med Rec #: [id number] Physician: Jordan Yuan DO Financial #: [id number] Pt. Type: A Room/Bed: [place] [address] Admit/Disch: 04/27/24 05:21:12 - Institution: Case Times [...] Signed By: Ling Kathleen RN 04/27/24 11:12 [facility] Main OR Preoperative Recordo n 04-27-2024 Main OR Preoperative Record Main OR Preoperative Record PreOp Document Type FT Summary Primary Physician: Jordan Yuan DO Finalized Date/Time: 04/27/24 09:02:45 Pt. Name: DYANRADHA./Sex: 1960 Female Med Rec #: [id number] Physician: Jordan Yuan DO Financial #: [id number] Pt. Type: Room/Bed: [place] [address] Admit/Disch: 04/27/24 05:21:12 - Institution: Case Times [...] Signed By: Carli Gomez RN 04/27/24 09:02 [facility] Operative Reporton Operative Report Operative Report Patient: RADHA ZAIDI Age: 63 years Sex: Female : 1960 Associated Diagnoses: None Author: Jordan Yuan DO DATE OF SURGERY: 04/27/2024 SURGEON: Jordan Yuan D.O. ORGANIZATIONAL DEVELOPMENT SPECIALIST: Jeff Marshall PREOPERATIVE DIAGNOSIS: Rotator cuff tear, left shoulder POSTOPERATIVE DIAGNOSIS: Rotator cuff tear, long head of the biceps tendon rupture, left shoulder PROCEDURE: 1. Examination under anesthesia, left shoulder 2. Left shoulder diagnostic arthroscopy 3. Arthroscopic rotator cuff repair (subscapularis and supraspinatus) 4. Arthroscopic extensive debridement ANESTHESIA: General + regional block ANESTHESIOLOGIST: BIANCA Chávez and mW Bajwa MD IMPLANTS: 1. Subscapularis repair: Arthrex [...] the greater tuberosity was cleared with the Alton wand to improve visualization. An accessory anterosuperolateral portal was made with outside in technique using spinal needle localization. A passport cannula was placed. Soft tissue was cleared from the lesser tuberosity with the Alton wand. A bony bleeding bed was created with the arthroscopic bur on the reverse setting. The punch was placed to the anterior portal and used to create a socket for the corkscrew anchor at the upper portion of the lesser tuberosity. The anchor was inserted. The sutures were passed using th (more content not included)... Normal [facility] Comment on above: Result Comment: Elec tronically Signed By: Jordan Yuan DO\.br\Date and Time Signed: 04/27/24 15:13 EDT Outpatient Surgery Discharge Instructionon 04-27-2024 Outpatient Surgery Discharge Instruction Outpatient Surgery Discharge Instruction [place] [address] Patient Discharge Instructions PERSON INFORMATION Name: RADHA ZAIDI Date of : 1960 Current Date: 04/27/2024 07:48:25 PHYSICIANS Admitting Physician: Jordan Yuan DO Discharge Diagnosis: DYAN RADHA Lockett has been given the following list of follow-up instructions, prescriptions, and patient education materials: IF UNABLE TO CONTACT YOUR PHYSICIAN AND YOU FEEL IT IS AN EMERGENCY, GO TO THE NEAREST EMERGENCY ROOM OR CALL 911 I, RADHA ZAIDI, have received the attached patient education materials/instructions and have verbalized understanding: May we do a follow up call? Yes No I was present when discharge instructions were given ____ Patient Signature _ Date Clinican/Nurse Signature Date Follow up: Pharmacy [...] to serve you. Thank you for choosing [facility] HERE ARE THE MEDICATION CHANGES THAT OCCURRED DURING YOUR HOSPITAL STAY New Medications [id number], [address], [place] [phone], [phone] acetaminophen-oxycodone (Percocet 5 mg-325 mg oral tablet) [...] every 6 hours. PATIENT EDUCATION INFORMATION Instructions: [place] [place] [facility] AFTER YOUR SHOULDER ARTHROSCOPY [...] follow up (more content not included)... Normal [facility] Proceduralon 04-27-2024 Procedural Procedural Patient: RADHA ZAIDI [...] Using maximal sterile barrier technique per current [facility] guidelines including hand hygeine, Guidance (Ultrasound used to identify anatomical landmarks, Using sterile gel and probe covers, Permanent image retained), The site was prepped with ChloraPrep. Procedure: Anesthetic Agent skin/SQ local with 3cc 2% lido; 22g 50mm [facility]; 10cc .5% bupiv and 133mg exparel [...] The patient tolerated the procedure as expected. 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 Family History: Primary malignant neoplasm of prostate Father Acute myocardial infarction Mother Procedure history: Total shoulder replacement (63333053) on 04/06/2023 at 62 Years. Cervical laminectomy (0986803348). 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 Removal of lung, Partial (96336). Open reduction and internal fixation of fracture Leg (387749095). Foot surgery (0632842042). Lumbar discectomy (063507904). Social History Social & Psychosocial Habits Alcoh (more content not included)... Normal [facility] Basophils Auto (Bld) [#/Vol] on 03-27-2024 Basophils (Bld) [#/Vol] 0.0 10 3/uL 0.0-0.1 [facility] Basophils/100 WBC Auto (Bld) on 03-27-2024 Basophils/100 WBC (Bld) 0.7 % 0.2-2.0 [facility] Eosinophils/100 WBC Auto (Bl d)on 03-27-2024 Eosinophils/100 WBC (Bld) 2.0 % 0.9-7.0 [facility] Erythrocyte distribution wid th Auto (RBC) [Ratio]on 03-27-2024 Erythrocyte distribution width (RBC) [Ratio] 14.7 % 11.0-15.0 [facility] Hematocrit Auto (Bld) [Volum e fraction]on 03-27-2024 Hematocrit (Bld) [Volume fraction] 30.8 % Low 36.0-48.0 [facility] Hemoglobin [Mass/volume] in Bloodon 03-27-2024 Hemoglobin (Bld) [Mass/Vol] 10.0 g/dL Low 12.0-16.0 [facility] Laboratory - Chemistry and C hemistry - challengeon 03-27-2024 Cobalamin (Vitamin B12) [Mass/Vol] 172 pg/mL Abnormal [id number] [facility] Comment on above: Performed at: [address] [id number] Director: Lito Matamoros PhD, Phone: [phone] Laboratory - Hematology and Cell countson 03-27-2024 Immature granulocytes/100 WBC (Bld) 0.5 % 0.0-0.5 [facility] Leukocytes [#/volume] correc fito for nucleated erythrocytes in Blood by Automated counon 03-27-2024 WBC corrected for nucl RBC Auto (Bld) [#/Vol] 4.4 10 3/uL 4.0-11.0 [facility] Lymphocytes Auto (Bld) [#/Vo l]on 03-27-2024 Lymphocytes (Bld) [#/Vol] 1.9 10 3/uL 1.2-3.8 [facility] Lymphocytes/100 WBC Auto (Bl d)on 03-27-2024 Lymphocytes/100 WBC (Bld) 42.3 % 20.5-60.0 [facility] MCH Auto (RBC) [Entitic mass ]on 03-27-2024 MCH (RBC) [Entitic mass] 31.9 pg 26.7-34.0 [facility] MCHC Auto (RBC) [Mass/Vol]on 03-27-2024 MCHC (RBC) [Mass/Vol] 32.5 g/dL 29.9-35.2 [facility] MCV Auto (RBC) [Entitic vol] on 03-27-2024 MCV (RBC) [Entitic vol] 98.4 fL 81.0-99.0 [facility] Monocytes Auto (Bld) [#/Vol] on 03-27-2024 Monocytes (Bld) [#/Vol] 0.6 10 3/uL 0.3-0.8 [facility] Monocytes/100 WBC Auto (Bld) on 03-27-2024 Monocytes/100 WBC (Bld) 12.7 % High 1.7-12.0 [facility] Neutrophils Auto (Bld) [#/Vo l]on 03-27-2024 Neutrophils (Bld) [#/Vol] 1.8 10 3/uL 1.4-6.5 [facility] Neutrophils/100 WBC Auto (Bl d)on 03-27-2024 Neutrophils/100 WBC (Bld) 41.8 % Low 43.0-75.0 [facility] No Panel Informationon 03-27 Eosinophils # (Auto) 0.1 10 3/uL 0.0-0.7 [facility] Folate 14.00 ng/mL 8.60-58.90 [facility] Immature Granulocyte # (Auto) 0.02 10 3/uL 0.00-0.03 [facility] Platelet mean volume Auto (B ld) [Entitic vol]on 03-27-2024 Platelet mean volume (Bld) [Entitic vol] 9.3 fL Low 9.5-13.5 [facility] Platelets Auto (Bld) [#/Vol] on 03-27-2024 Platelets (Bld) [#/Vol] 235 10 3/uL 150-450 [facility] RBC Auto (Bld) [#/Vol]on RBC (Bld) [#/Vol] 3.13 10 6/uL Low 4.20-5.40 [facility] Reticulocytes/100 RBC Auto ( Bld)on 03-27-2024 Reticulocytes/100 RBC (Bld) 2.37 % 0.60-3.10 [facility] Serum or plasma methylmalona te measurement (moles/volume)on 03-27-2024 Methylmalonate [Moles/Vol] 195 nmol/L 0-378 [facility] Comment on above: This test was develo ped and its performance characteristicsdetermined by [employer]. It has not been cleared orapproved by the Food and Drug Administration.Performed at: [address] [id number] Director: Goldy Aparicio MD, Phone: [phone] XR Chest 2 Viewson 4 XR Chest [...] mGy = na DAP = na Normal [facility] BMPon 03-19-2024 Anion gap [Moles/Vol] 9 mmol/L Normal 6-16 [facility] Comment on above: Performed By: #### 2 [id number] #### [facility] [address] [place] [address] Calcium [Mass/Vol] 9.1 mg/dL Normal 8.9-11.1 [facility] Comment on above: Performed By: #### 2 [id number] #### [facility] [address] [place] [address] Chloride [Moles/Vol] 109 mmol/L Normal 101-111 [facility] Comment on above: Performed By: #### 2 [id number] #### [facility] [address] [place] [address] CO2 [Moles/Vol] 27 mmol/L Normal 21-31 [facility] Comment on above: Performed By: #### 2 [id number] #### [facility] [address] [place] [address] Creatinine [Mass/Vol] 1.1 mg/dL Normal 0.5-1.3 [facility] Comment on above: Performed By: #### 2 179205 #### [facility] [address] [place] [address] Glucose [Mass/Vol] 85 mg/dL Normal 55-199 [facility] Comment on above: Performed By: #### 2 [id number] #### [facility] [address] [place] [address] Potassium [Moles/Vol] 3.8 mmol/L Normal 3.5-5.3 [facility] Comment on above: Performed By: #### 2 195085 #### [facility] [address] [place] [address] Sodium [Moles/Vol] 141 mmol/L Normal 135-145 [facility] Comment on above: Performed By: #### 2 079786 #### [facility] [address] [place] [address] Urea nitrogen [Mass/Vol] 17 mg/dL Normal 5-21 [facility] Comment on above: Performed By: #### 2 [id number] #### [facility] [address] [place] [address] Urea nitrogen/Creatinine [Mass ratio] 16 No Units Normal 10-20 [facility] Comment on above: Performed By: #### 2 [id number] #### [facility] [address] [place] [address] CBC w/ Auto Diffon 4 Basophils/100 WBC (Bld) 0.6 % Normal 0.0-2.0 [facility] Comment on above: Performed By: #### 2 732238 #### [facility] [address] [place] [address] Basophils/Leukocytes Auto (Bld) [Pure # fraction] 0.0 E9/L Normal 0.0-0.2 [facility] Comment on above: Performed By: #### 2 768165 #### [facility] [address] [place] [address] Eosinophils (Bld) [#/Vol] 0.1 E9/L Normal 0.0-0.5 [facility] Comment on above: Performed By: #### 2 356919 #### [facility] [address] [place] [address] Eosinophils/100 WBC (Bld) 1.6 % Normal 0.0-8.0 [facility] Comment on above: Performed By: #### 2 149471 #### [facility] [address] [place] [address] Erythrocyte distribution width (RBC) [Ratio] 14.7 % High 10.9-14.2 [facility] Comment on above: Performed By: #### 2 288348 #### [facility] [address] [place] [address] Hematocrit (Bld) [Volume fraction] 27.9 % Low 34.0-46.0 [facility] Comment on above: Performed By: #### 2 [id number] #### [facility] [address] [place] [address] Hemoglobin (Bld) [Mass/Vol] 9.8 g/dL Low 12.0-16.0 [facility] Comment on above: Performed By: #### 2 915182 #### [facility] [address] [place] [address] Lymphocytes (Bld) [#/Vol] 1.1 E9/L Normal 1.0-4.0 [facility] Comment on above: Performed By: #### 2 056114 #### [facility] [address] [place] [address] Lymphocytes/100 WBC (Bld) 28.9 % Normal 14.0-50.0 [facility] Comment on above: Performed By: #### 2 524712 #### [facility] [address] [place] [address] MCH (RBC) [Entitic mass] 33.8 pg Normal 27.0-34.0 [facility] Comment on above: Performed By: #### 2 982339 #### [facility] [address] [place] [address] MCHC (RBC) [Mass/Vol] 35.1 g/dL Normal 31.4-36.0 [facility] Comment on above: Performed By: #### 2 890436 #### [facility] [address] [place] [address] MCV (RBC) [Entitic vol] 96.2 fL Normal 80.0-100.0 [facility] Comment on above: Performed By: #### 2 628524 #### [facility] [address] [place] [address] Monocytes (Bld) [#/Vol] 0.6 E9/L Normal 0.2-1.0 [facility] Comment on above: Performed By: #### 2 398576 #### [facility] [address] [place] [address] Neutrophils (Bld) [#/Vol] 2.0 E9/L Normal 2.0-7.5 [facility] Comment on above: Performed By: #### 2 533544 #### [facility] [address] [place] [address] Neutrophils/100 WBC (Bld) 52.8 % Normal 36.0-75.0 [facility] Comment on above: Performed By: #### 2 157346 #### [facility] [address] [place] [address] Platelet 211.0 E9/L Normal 150.0-500. 0 [facility] Comment on above: Performed By: #### 2 665126 #### [facility] [address] [place] [address] Platelet mean volume (Bld) [Entitic vol] 7.0 fL Normal 6.4-10.8 [facility] Comment on above: Performed By: #### 2 235892 #### [facility] [address] [place] [address] RBC (Bld) [#/Vol] 2.9 E12/L Low 4.3-5.9 [facility] Comment on above: Performed By: #### 2 807675 #### [facility] [address] [place] [address] WBC corrected for nucl RBC Auto (Bld) [#/Vol] 3.8 E9/L Low 4.0-11.0 [facility] Comment on above: Result Comment: Mae pheral smear review performed. Performed By: #### 2 445404 #### [facility] [address] [place] [address] CHEMISTRYOrdered By: SYSTEM SYSTEM on 03-19-2024 Anion [...] Chem eGFR 56 mL/min/1.73 m2 Low >=59mL/min /1.73 m2 Remisol Chem Glucose [Mass/Vol] 85 mg/dL [...] 03-19-2024 eGFR 56 mL/min/1.73 m2 Low >=59 [facility] Comment on above: Order Comment: Order added by Discern Expert. Performed By: #### 1 [id number] #### [facility] [address] [place] [address] Basophils Auto (Bld) [#/Vol] on 02-14-2024 Basophils (Bld) [#/Vol] 0.0 10 3/uL 0.0-0.1 [facility] Basophils/100 WBC Auto (Bld) on 02-14-2024 Basophils/100 WBC (Bld) 0.8 % 0.2-2.0 F [facility] Eosinophils/100 WBC Auto (Bl d)on 02-14-2024 Eosinophils/100 WBC (Bld) 1.5 % 0.9-7.0 [facility] Erythrocyte distribution wid th Auto (RBC) [Ratio]on 02-14-2024 Erythrocyte distribution width (RBC) [Ratio] 15.1 % High 11.0-15.0 [facility] Hematocrit Auto (Bld) [Volum e fraction]on 02-14-2024 Hematocrit (Bld) [Volume fraction] 35.4 % Low 36.0-48.0 [facility] Hemoglobin [Mass/volume] in Bloodon 02-14-2024 Hemoglobin (Bld) [Mass/Vol] 11.0 g/dL Low 12.0-16.0 [facility] Iron binding capacity [Mass/ volume] in Serum or Plasmaon 02-14-2024 Iron binding capacity [Mass/Vol] 303.0 ug/dL 250.0-450. 0 [facility] Iron saturation [Mass Fracti on] in Serum or Plasmaon 02-14-2024 Iron saturation [Mass fraction] 81.2 % [facility] Laboratory - Chemistry and C hemistry - challengeon 02-14-2024 Cobalamin (Vitamin B12) [Mass/Vol] 225.0 pg/mL 193.0-986. 0 [facility] Ferritin [Mass/Vol] 338.0 ng/mL High 8.0-252.0 [facility] Iron [Mass/Vol] 246.0 ug/dL High 50.0-170.0 [facility] - Hematology and Cell countson 02-14-2024 Immature granulocytes/100 WBC (Bld) 0.8 % High 0.0-0.5 [facility] Leukocytes [#/volume] correc fito for nucleated erythrocytes in Blood by Automated counon 02-14-2024 WBC corrected for nucl RBC Auto (Bld) [#/Vol] 4.7 10 3/uL 4.0-11.0 [facility] Lymphocytes Auto (Bld) [#/Vo l]on 02-14-2024 Lymphocytes (Bld) [#/Vol] 2.3 10 3/uL 1.2-3.8 [facility] Lymphocytes/100 WBC Auto (Bl d)on 02-14-2024 Lymphocytes/100 WBC (Bld) 48.7 % 20.5-60.0 [facility] MCH Auto (RBC) [Entitic mass ]on 02-14-2024 MCH (RBC) [Entitic mass] 31.9 pg 26.7-34.0 [facility] MCHC Auto (RBC) [Mass/Vol]on 02-14-2024 MCHC (RBC) [Mass/Vol] 31.1 g/dL 29.9-35.2 [facility] MCV Auto (RBC) [Entitic vol] on 02-14-2024 MCV (RBC) [Entitic vol] 102.6 fL High 81.0-99.0 F [facility] Monocytes Auto (Bld) [#/Vol] on 02-14-2024 Monocytes (Bld) [#/Vol] 0.6 10 3/uL 0.3-0.8 [facility] Monocytes/100 WBC Auto (Bld) on 02-14-2024 Monocytes/100 WBC (Bld) 13.3 % High 1.7-12.0 F [facility] Neutrophils Auto (Bld) [#/Vo l]on 02-14-2024 Neutrophils (Bld) [#/Vol] 1.7 10 3/uL 1.4-6.5 [facility] Neutrophils/100 WBC Auto (Bl d)on 02-14-2024 Neutrophils/100 WBC (Bld) 34.9 % Low 43.0-75.0 [facility] No Panel Informationon 02-13 Eosinophils # (Auto) 0.1 10 3/uL 0.0-0.7 [facility] Immature Granulocyte # (Auto) 0.04 10 3/uL High 0.00-0.03 [facility] Folate 9.40 ng/mL 8.60-58.90 [facility] Platelet mean volume Auto (B ld) [Entitic vol]on 02-14-2024 Platelet mean volume (Bld) [Entitic vol] 9.1 fL Low 9.5-13.5 [facility] Platelets Auto (Bld) [#/Vol] on 02-14-2024 Platelets (Bld) [#/Vol] 197 10 3/uL 150-450 [facility] RBC Auto (Bld) [#/Vol]on RBC (Bld) [#/Vol] 3.45 10 6/uL Low 4.20-5.40 [facility] Basophils Auto (Bld) [#/Vol] on 02-02-2024 Basophils (Bld) [#/Vol] 0.0 10 3/uL 0.0-0.1 [facility] Basophils/100 WBC Auto (Bld) on 02-02-2024 Basophils/100 WBC (Bld) 0.8 % 0.2-2.0 F [facility] Eosinophils/100 WBC Auto (Bl d)on 02-02-2024 Eosinophils/100 WBC (Bld) 2.1 % 0.9-7.0 [facility] Erythrocyte distribution wid th Auto (RBC) [Ratio]on 02-02-2024 Erythrocyte distribution width (RBC) [Ratio] 14.2 % 11.0-15.0 [facility] Estimated glomerular filtrat ion rate (GFR) non- Americanon 02-02-2024 GFR/1.73 sq M.predicted among non-blacks MDRD (S/P/Bld) [Vol rate/Area] 51 mL/min/{1.73_m2} Low >=60 [facility] Globulin Calc (S) [Mass/Vol] on 02-02-2024 Globulin (S) [Mass/Vol] 2.9 g/dL F [facility] Hematocrit Auto (Bld) [Volum e fraction]on 02-02-2024 Hematocrit (Bld) [Volume fraction] 31.9 % Low 36.0-48.0 [facility] Hemoglobin [Mass/volume] in Bloodon 02-02-2024 Hemoglobin (Bld) [Mass/Vol] 10.2 g/dL Low 12.0-16.0 [facility] Laboratory - Chemistry and C hemistry - challengeon 02-02-2024 Albumin [Mass/Vol] 3.9 g/dL 3.4-5.0 [facility] ALP [Catalytic activity/Vol] 48 U/L 46-116 [facility] ALT [Catalytic activity/Vol] 20 U/L 14-59 [facility] AST [Catalytic activity/Vol] 23 U/L 15-37 [facility] Bilirubin [Mass/Vol] 0.5 mg/dL 0.2-1.0 [facility] Calcium [Mass/Vol] 9.1 mg/dL 8.5-10.1 [facility] Chloride [Moles/Vol] 108 mmol/L High 98-107 [facility] CO2 [Moles/Vol] 24.8 mmol/L 21.0-32.0 [facility] Creatinine [Mass/Vol] 1.09 mg/dL High 0.55-1.02 [facility] GFR/1.73 sq M.predicted MDRD (S/P/Bld) [Vol rate/Area] mL/min/{1.73_m2} >=60 [facility] Glucose [Mass/Vol] 87 mg/dL 74-106 [facility] Potassium [Moles/Vol] 3.9 mmol/L 3.5-5.1 [facility] Protein [Mass/Vol] 6.8 g/dL 6.4-8.2 [facility] Sodium [Moles/Vol] 144 mmol/L 136-145 [facility] Urea nitrogen [Mass/Vol] 17.0 mg/dL 7.0-18.0 [facility] Urea nitrogen/Creatinine [Mass ratio] 15.6 mg/mg [facility] Laboratory - Hematology and Cell countson 02-02-2024 ESR (Bld) [Velocity] 12 mm/h <=30 [facility] Immature granulocytes/100 WBC (Bld) 0.5 % 0.0-0.5 [facility] Leukocytes [#/volume] correc fito for nucleated erythrocytes in Blood by Automated counon 02-02-2024 WBC corrected for nucl RBC Auto (Bld) [#/Vol] 3.8 10 3/uL Low 4.0-11.0 [facility] Lymphocytes Auto (Bld) [#/Vo l]on 02-02-2024 Lymphocytes (Bld) [#/Vol] 1.5 10 3/uL 1.2-3.8 [facility] Lymphocytes/100 WBC Auto (Bl d)on 02-02-2024 Lymphocytes/100 WBC (Bld) 40.3 % 20.5-60.0 [facility] MCH Auto (RBC) [Entitic mass ]on 02-02-2024 MCH (RBC) [Entitic mass] 31.7 pg 26.7-34.0 [facility] MCHC Auto (RBC) [Mass/Vol]on 02-02-2024 MCHC (RBC) [Mass/Vol] 32.0 g/dL 29.9-35.2 [facility] MCV Auto (RBC) [Entitic vol] on 02-02-2024 MCV (RBC) [Entitic vol] 99.1 fL High 81.0-99.0 F [facility] Monocytes Auto (Bld) [#/Vol] on 02-02-2024 Monocytes (Bld) [#/Vol] 0.6 10 3/uL 0.3-0.8 [facility] Monocytes/100 WBC Auto (Bld) on 02-02-2024 Monocytes/100 WBC (Bld) 16.1 % High 1.7-12.0 F [facility] Neutrophils Auto (Bld) [#/Vo l]on 02-02-2024 Neutrophils (Bld) [#/Vol] 1.5 10 3/uL 1.4-6.5 [facility] Neutrophils/100 WBC Auto (Bl d)on 02-02-2024 Neutrophils/100 WBC (Bld) 40.2 % Low 43.0-75.0 [facility] No Panel Informationon 02-01 Eosinophils # (Auto) 0.1 10 3/uL 0.0-0.7 [facility] Immature Granulocyte # (Auto) 0.02 10 3/uL 0.00-0.03 [facility] Platelet mean volume Auto (B ld) [Entitic vol]on 02-02-2024 Platelet mean volume (Bld) [Entitic vol] 9.3 fL Low 9.5-13.5 [facility] Platelets Auto (Bld) [#/Vol] on 02-02-2024 Platelets (Bld) [#/Vol] 236 10 3/uL 150-450 [facility] RBC Auto (Bld) [#/Vol]on RBC (Bld) [#/Vol] 3.22 10 6/uL Low 4.20-5.40 [facility] Serum or plasma albumin/glob ulin mass ratioon 02-02-2024 Albumin/Globulin [Mass ratio] 1.3 {ratio} [facility] Serum or plasma anion gap de terminationon 02-02-2024 Anion gap [Moles/Vol] 15.1 mmol/L [facility] XR Shoulder - right 2 Viewso n 11-25-2023 Imaging Result: 4 views right shoulder, Grashey/Zanca/outlet/axill lola, taken today and saved to the permanent medical record. Prosthesis is unchanged in position and alignment. Fracture at the base of the acromion unchanged in appearance. [facility] XR Shoulder - right 2 Viewso n 11-15-2023 Radiology Study observation (narrative) [facility] CT Upper Extremity w/o Contr ast [...] MD Transcribed by: DANISHA Technologist: ARNULFO Shah [facility] Miscellaneous-LCon Lab Miscellaneous COMMENT Invalid Interpretation Code [facility] Comment on above: Result Comment: Test Ordered: [id number] Interleukin-6, Serum Interleukin-6, Serum <2.5 pg/mL Reference [...] endotracheal intubation or mechanical ventilation. Performed at: [facility] [id number] PhD Saturnino Morse Performed By: #### 1 [id number] ####[facility] [address] [place] [address] CBC w/ Auto Diffon 4 Basophil Absolute 0.0 E9/L Normal 0.0-0.2 [facility] Comment on above: Performed By: #### 2 704426, [id number], [id number] #### [facility] [address] [place] [address] Basophils/100 WBC (Bld) 0.4 % Normal 0.0-2.0 [facility] Comment on above: Performed By: #### 2 504172, 2574206, [id number] #### [facility] [address] [place] [address] Eos Absolute 0.0 E9/L Normal 0.0-0.5 [facility] Comment on above: Performed By: #### 2 473990, [id number], [id number] #### [facility] [address] [place] [address] Eosinophils/100 WBC (Bld) 0.2 % Normal 0.0-8.0 [facility] Comment on above: Performed By: #### 2 960917, 5852666, [id number] #### [facility] [address] [place] [address] Erythrocyte distribution width (RBC) [Ratio] 14.3 % High 10.9-14.2 [facility] Comment on above: Performed By: #### 2 088133, 1489944, [id number] #### [facility] [address] [place] [address] Hematocrit (Bld) [Volume fraction] 40.0 % Normal 34.0-46.0 [facility] Comment on above: Performed By: #### 2 492473, 9470540, [id number] #### [facility] [address] [place] [address] Hemoglobin (Bld) [Mass/Vol] 12.7 g/dL Normal 12.0-16.0 [facility] Comment on above: Performed By: #### 2 286473, 1893560, [id number] #### [facility] [address] [place] [address] Lymph Absolute 0.9 E9/L Low 1.0-4.0 [facility] Comment on above: Performed By: #### 2 227347, 6412363, [id number] #### [facility] [address] [place] [address] Lymphocytes/100 WBC (Bld) 25.2 % Normal 14.0-50.0 [facility] Comment on above: Performed By: #### 2 538191, 0669836, [id number] #### [facility] [address] [place] [address] MCH (RBC) [Entitic mass] 30.6 pg Normal 27.0-34.0 [facility] Comment on above: Performed By: #### 2 681870, 9500797, [id number] #### [facility] [address] [place] [address] MCHC (RBC) [Mass/Vol] 31.7 g/dL Normal 31.4-36.0 [facility] Comment on above: Performed By: #### 2 121771, 2729393, [id number] #### [facility] [address] [place] [address] MCV (RBC) [Entitic vol] 96.5 fL Normal 80.0-100.0 [facility] Comment on above: Performed By: #### 2 971653, 1192188, [id number] #### [facility] [address] [place] [address] [place] Absolute 0.3 E9/L Normal 0.2-1.0 [facility] Comment on above: Performed By: #### 2 183925, 3516389, [id number] #### [facility] [address] [place] [address] Monocytes/100 WBC (Bld) 7.3 % Normal 4.0-14.0 [facility] Comment on above: Performed By: #### 2 491418, 5639523, [id number] #### [facility] [address] [place] [address] Neutro Absolute 2.3 E9/L Normal 2.0-7.5 [facility] Comment on above: Performed By: #### 2 704373, 4575988, [id number] #### [facility] [address] [place] [address] Neutro Auto 66.9 % Normal 36.0-75.0 [facility] Comment on above: Performed By: #### 2 503656, 6049607, [id number] #### [facility] [address] [place] [address] Platelet 257.0 E9/L Normal 150.0-500. 0 [facility] Comment on above: Performed By: #### 2 661915, 7920318, [id number] #### [facility] [address] [place] [address] Platelet mean volume (Bld) [Entitic vol] 7.4 fL Normal 6.4-10.8 [facility] Comment on above: Performed By: #### 2 925511, 0689860, [id number] #### [facility] [address] [place] [address] RBC 4.1 E12/L Low 4.3-5.9 [facility] Comment on above: Performed By: #### 2 396618, 3947565, [id number] #### [facility] [address] [place] [address] WBC 3.4 E9/L Low 4.0-11.0 [facility] Comment on above: Performed By: #### 2 060865, 6289075, [id number] #### [facility] [address] [place] [address] CHEMISTRYOrdered By: SYSTEM SYSTEM on 09-06-2023 CRP mg/dL Normal <=1.9mg/dL Remisol Chem CRPon 09-06-2023 CRP [Mass/Vol] mg/L Normal <=1.9 [facility] Comment on above: Performed By: #### 2 173400, 0393426, [id number] #### [facility] [address] [facility] [place] [address] Consent for Treatmenton 08-12 Consent for Treatment [id number]#1.00TIFF Normal [facility] HEMATOLOGYOrdered By: SYSTEM SYSTEM on [...] Normal 80.0 - 100.0 fL Remisol Heme [place] Absolute 0.3 E9/L Normal 0.2 - 1.0 [...] 14 mm/h Normal 0 - 34 mm/hr [facility] HemeAutoSS Lab Miscellaneous-LCon 09-06 Test Code 656242 Invalid Interpretation Code [facility] Comment on above: Performed By: #### 1 [id number] ####[facility] [address] [place] [address] Test Name interleukin 6 Invalid Interpretation Code [facility] Comment on above: Performed By: #### 1 [id number] ####[facility] [address] [place] [address] Physician Orderon 09-06-2023 Physician Order [id number]#1.00TIFF Normal [facility] Reference Laboratory Testing Ordered By: Jojo Gonsales on 09-06-2023 Test Code 052388 1 Invalid Interpretation Code [facility] SendOutsSS Test Name interleukin 6 Invalid Interpretation Code [facility] [employer] Sed Rate Automatedon 024 ESR (Bld) [Velocity] 14 mm/h Normal 0-[address] [facility] Comment on above: Performed By: #### 2 615347, [id number], [id number] #### [facility] [address] [place] [address] Physician Orderon 08-31-2023 Physician Order [id number]#1.00TIFF Normal [facility] Basophils Auto (Bld) [#/Vol] on 08-30-2023 Basophils (Bld) [#/Vol] 0.0 10 3/uL 0.0-0.1 [facility] Basophils/100 WBC Auto (Bld) on 08-30-2023 Basophils/100 WBC (Bld) 0.8 % 0.2-2.0 F [facility] Cholesterol in LDL Calc [Mas s/Vol]on 08-30-2023 Cholesterol in LDL [Mass/Vol] 152.0 mg/dL [facility] Comment on above: <100 mg/dl [id number] 0-129 mg/dl NEAR OR ABOVE [id number] mg/dl BORDERLINE [id number] mg/dl HIGH>190 mg/dl VERY HIGH Cholesterol in VLDL Calc [Ma ss/Vol]on 08-30-2023 Cholesterol in VLDL [Mass/Vol] 20.2 mg/dL [facility] Eosinophils/100 WBC Auto (Bl d)on 08-30-2023 Eosinophils/100 WBC (Bld) 4.2 % 0.9-7.0 [facility] Erythrocyte distribution wid th Auto (RBC) [Ratio]on 08-30-2023 Erythrocyte distribution width (RBC) [Ratio] 13.4 % 11.0-15.0 [facility] Estimated glomerular filtrat ion rate (GFR) non- Americanon 08-30-2023 GFR/1.73 sq M.predicted among non-blacks MDRD (S/P/Bld) [Vol rate/Area] 59 mL/min/{1.73_m2} >=60 [facility] Globulin Calc (S) [Mass/Vol] on 08-30-2023 Globulin (S) [Mass/Vol] 3.4 g/dL F [facility] Hematocrit Auto (Bld) [Volum e fraction]on 08-30-2023 Hematocrit (Bld) [Volume fraction] 39.5 % 36.0-48.0 [facility] Hemoglobin [Mass/volume] in Bloodon 08-30-2023 Hemoglobin (Bld) [Mass/Vol] 12.5 g/dL 12.0-16.0 [facility] Laboratory - Chemistry and C hemistry - challengeon 08-30-2023 Albumin [Mass/Vol] 3.7 g/dL 3.4-5.0 [facility] ALP [Catalytic activity/Vol] 45 U/L 46-116 [facility] ALT [Catalytic activity/Vol] 23 U/L 14-59 [facility] AST [Catalytic activity/Vol] 21 U/L 15-37 [facility] Bilirubin [Mass/Vol] 0.4 mg/dL 0.2-1.0 [facility] Calcium [Mass/Vol] 9.0 mg/dL 8.5-10.1 [facility] Chloride [Moles/Vol] 106 mmol/L 98-107 [facility] Cholesterol [Mass/Vol] 246 mg/dL <=200 [facility] Cholesterol in HDL [Mass/Vol] 74 mg/dL 40-60 [facility] Comment on above: > or =60 mg/dl - LOW CARDIOVASCULAR RISK<40 mg/dl - HIGH CARDIOVASCULAR RISK CO2 [Moles/Vol] 25.5 mmol/L 21.0-32.0 [facility] Creatinine [Mass/Vol] 0.96 mg/dL 0.55-1.02 [facility] GFR/1.73 sq M.predicted MDRD (S/P/Bld) [Vol rate/Area] mL/min/{1.73_m2} >=60 [facility] Glucose [Mass/Vol] 86 mg/dL 74-106 [facility] Potassium [Moles/Vol] 3.8 mmol/L 3.5-5.1 [facility] Protein [Mass/Vol] 7.1 g/dL 6.4-8.2 [facility] Sodium [Moles/Vol] 142 mmol/L 136-145 [facility] Triglyceride [Mass/Vol] 101 mg/dL <=150 F [facility] TSH Qn 1.531 m[IU]/L 0.358-3.74 0 [facility] Urea nitrogen [Mass/Vol] 20.0 mg/dL 7.0-18.0 [facility] Urea nitrogen/Creatinine [Mass ratio] 20.8 mg/mg [facility] Laboratory - Hematology and Cell countson 08-30-2023 ESR (Bld) [Velocity] 16 mm/h <=30 [facility] Immature granulocytes/100 WBC (Bld) 0.3 % 0.0-0.5 [facility] Leukocytes [#/volume] correc fito for nucleated erythrocytes in Blood by Automated counon 08-30-2023 WBC corrected for nucl RBC Auto (Bld) [#/Vol] 3.8 10 3/uL 4.0-11.0 [facility] Lymphocytes Auto (Bld) [#/Vo l]on 08-30-2023 Lymphocytes (Bld) [#/Vol] 1.7 10 3/uL 1.2-3.8 [facility] Lymphocytes/100 WBC Auto (Bl d)on 08-30-2023 Lymphocytes/100 WBC (Bld) 44.8 % 20.5-60.0 [facility] MCH Auto (RBC) [Entitic mass ]on 08-30-2023 MCH (RBC) [Entitic mass] 31.1 pg 26.7-34.0 [facility] MCHC Auto (RBC) [Mass/Vol]on 08-30-2023 MCHC (RBC) [Mass/Vol] 31.6 g/dL 29.9-35.2 [facility] MCV Auto (RBC) [Entitic vol] on 08-30-2023 MCV (RBC) [Entitic vol] 98.3 fL 81.0-99.0 F [facility] Monocytes Auto (Bld) [#/Vol] on 08-30-2023 Monocytes (Bld) [#/Vol] 0.5 10 3/uL 0.3-0.8 [facility] Monocytes/100 WBC Auto (Bld) on 08-30-2023 Monocytes/100 WBC (Bld) 14.1 % 1.7-12.0 F [facility] Neutrophils Auto (Bld) [#/Vo l]on 08-30-2023 Neutrophils (Bld) [#/Vol] 1.4 10 3/uL 1.4-6.5 [facility] Neutrophils/100 WBC Auto (Bl d)on 08-30-2023 Neutrophils/100 WBC (Bld) 35.8 % 43.0-75.0 [facility] No Panel Informationon 08-30 Eosinophils # (Auto) 0.2 10 3/uL 0.0-0.7 [facility] Immature Granulocyte # (Auto) 0.01 10 3/uL 0.00-0.03 [facility] Platelet mean volume Auto (B ld) [Entitic vol]on 08-30-2023 Platelet mean volume (Bld) [Entitic vol] 9.1 fL 9.5-13.5 [facility] Platelets Auto (Bld) [#/Vol] on 08-30-2023 Platelets (Bld) [#/Vol] 181 10 3/uL 150-450 [facility] RBC Auto (Bld) [#/Vol]on RBC (Bld) [#/Vol] 4.02 10 6/uL 4.20-5.40 [facility] Serum or plasma albumin/glob ulin mass ratioon 08-30-2023 Albumin/Globulin [Mass ratio] 1.1 {ratio} [facility] Serum or plasma anion gap de terminationon 08-30-2023 Anion gap [Moles/Vol] 14.3 mmol/L [facility] Serum or plasma total choles terol/high density lipoprotein (HDL) cholesterol mass albina 08-30-2023 Cholesterol.total/Theresa sterol in HDL [Mass ratio] 3.3 {ratio} [facility] Comment on above: 3.3 - 4.4 [...] No obvious fractures at the coracoid process. [facility] Chat& (ChatAnd) [facility] Chat& (ChatAnd) XR Shoulder - right 2 Viewso n 08-18-2023 Radiology Study observation (narrative) [facility] Chat& (ChatAnd) IntraOperative Documentson 1 IntraOperative Documents [id number]:127 Normal [facility] Auto Diffon 04-07-2023 Basophils/100 WBC (Bld) 0.2 % Normal 0.0-2.0 F [facility] Comment on above: Order Comment: Order Added by Discern Expert. Performed By: #### 2 828422, 6752239, 1172469, 4249264, 72965299, 9293559 #### [facility] [address] [place] [address] Basophils/Leukocytes Auto (Bld) [Pure # fraction] 0.0 E9/L Normal 0.0-0.2 [facility] Comment on above: Order Comment: Order Added by Discern Expert. Performed By: #### 2 066104, 2430088, 4301947, 7505063, 12761212, 6916675 #### [facility] [address] [place] [address] Eosinophils/100 WBC (Bld) 0.0 % Normal 0.0-8.0 [facility] Comment on above: Order Comment: Order Added by Discern Expert. Performed By: #### 2 109944, 7208850, 1893577, 9764071, 42862725, 1460063 #### [facility] [address] [place] [address] Eosinophils/Leukocytes Auto (Bld) [Pure # fraction] 0.0 E9/L Normal 0.0-0.5 [facility] Comment on above: Order Comment: Order Added by Discern Expert. Performed By: #### 2 080203, 7879901, 8564621, 4972900, 02339802, 7868210 #### [facility] [address] [place] [address] Lymphocytes/100 WBC (Bld) 7.9 % Low 14.0-50.0 [facility] Comment on above: Order Comment: Order Added by Discern Expert. Performed By: #### 2 568880, 5947641, 5773130, 2695708, 02379263, 0679032 #### [facility] [address] [place] [address] Lymphocytes/Leukocytes Auto (Bld) [Pure # fraction] 0.8 E9/L Low 1.0-4.0 [facility] Comment on above: Order Comment: Order Added by Discern Expert. Performed By: #### 2 395112, 0339139, 8985604, 9175667, 31941494, 5243448 #### [facility] [address] [place] [address] Monocytes/100 WBC (Bld) 14.0 % Normal 4.0-14.0 [facility] Comment on above: Order Comment: Order Added by Discern Expert. Performed By: #### 2 673792, 3189931, 3191327, 0392536, 50222530, 5153213 #### [facility] [address] [place] [address] Monocytes/Leukocytes Auto (Bld) [Pure # fraction] 1.3 E9/L High 0.2-1.0 [facility] Comment on above: Order Comment: Order Added by Discern Expert. Performed By: #### 2 326168, 6897124, 2084977, 9521177, 31958618, 5280363 #### [facility] [address] [place] [address] Neutrophils/100 WBC (Bld) 77.9 % High 36.0-75.0 [facility] Comment on above: Order Comment: Order Added by Discern Expert. Performed By: #### 2 284993, 9520894, 2746068, 3074077, 84637892, 0967313 #### [facility] [address] [place] [address] Neutrophils/Leukocytes Auto (Bld) [Pure # fraction] 7.5 E9/L Normal 2.0-7.5 [facility] Comment on above: Order Comment: Order Added by Discern Expert. Performed By: #### 2 035869, 0332223, 7706816, 9845106, 95728173, 0824540 #### [facility] [address] [place] [address] BUNon 04-07-2023 Urea nitrogen [Mass/Vol] 20 mg/dL Normal 5-21 [facility] Comment on above: Performed By: #### 2 748326, 4842341, 3514788, 4114424, 90649570, 4719643 #### [facility] [address] [place] [address] CBC w/ Auto Diffon 3 Erythrocyte distribution width (RBC) [Ratio] 14.6 % High 10.9-14.2 [facility] Comment on above: Performed By: #### 2 122005, 4962278, 0454139, 9894088, 95821870, 3221217 #### [facility] [address] [address] Hematocrit (Bld) [Volume fraction] 29.7 % Low 34.0-46.0 [facility] Comment on above: Performed By: #### 2 314036, 3468526, 2637751, 4009725, 01433756, 1313646 #### [facility] [address] [place] [address] Hemoglobin (Bld) [Mass/Vol] 10.0 g/dL Low 12.0-16.0 [facility] Comment on above: Performed By: #### 2 638979, 9917738, 3035637, 3456521, 56740462, 5772037 #### [facility] [address] [place] [address] MCH (RBC) [Entitic mass] 32.5 pg Normal 27.0-34.0 [facility] Comment on above: Performed By: #### 2 057554, 2602337, 7771759, 4777318, 06061417, 0877435 #### [facility] [address] [place] [address] MCHC (RBC) [Mass/Vol] 33.6 g/dL Normal 31.4-36.0 [facility] Comment on above: Performed By: #### 2 209221, 9189775, 3705619, 1448716, 08530255, 6940667 #### [facility] [address] [place] [address] MCV (RBC) [Entitic vol] 96.7 fL Normal 80.0-100.0 F [facility] Comment on above: Performed By: #### 2 851067, 4243458, 1225768, 1477217, 12530388, 1038168 #### [facility] [address] [place] [address] Platelet mean volume (Bld) [Entitic vol] 7.1 fL Normal 6.4-10.8 [facility] Comment on above: Performed By: #### 2 635944, 7657263, 8541311, 7801182, 96634866, 6380892 #### [facility] [address] [place] [address] Platelets (Bld) [#/Vol] 215.0 E9/L Normal 150. 0-500. 0 [facility] Comment on above: Performed By: #### 2 082090, 4635096, 4149640, 7264248, 62735813, 8413780 #### [facility] [address] [place] [address] RBC (Bld) [#/Vol] 3.1 E12/L Low 4.3-5.9 [facility] Comment on above: Performed By: #### 2 921210, 2633937, 2186953, 6070821, 16729033, 3594051 #### [facility] [address] [place] [address] WBC corrected for nucl RBC Auto (Bld) [#/Vol] 9.6 E9/L Normal 4.0-11.0 [facility] Comment on above: Performed By: #### 2 432734, 6574189, 9862290, 8305816, 50992392, 3809129 #### [facility] [address] [place] [address] CHEMISTRYOrdered By: SYSTEM SYSTEM on 04-07-2023 Anion gap [Moles/Vol] 6 mmol/L Normal 6 - 16 mEq/L [facility] Chloride [Moles/Vol] 118 mmol/L High 101 - 1 11 mmol/L [facility] CO2 [Moles/Vol] 23 mmol/L Normal 21 - 31 mmol/L [facility] Creatinine [Mass/Vol] 0.9 mg/dL Normal 0.5 - 1.3 mg/dL [facility] Remisol GFR/1.73 sq M.predicted among non-blacks MDRD (S/P/Bld) [Vol rate/Area] 72 mL/min/1.73 m2 Normal >=59mL/min /1.73 m2 [facility] Chem S Comment on above: Interpretive Data: C hronic kidney disease could be indicated at eGFR's of less than 60 mL/min/1.73m2. Kidney failure is indicated at less than 15 mL/min/1.73m2. Potassium [Moles/Vol] 4.0 mmol/L Normal 3.5 - 5.3 mmol/L [facility] Remisol Sodium [Moles/Vol] 143 mmol/L Normal 135 - 145 mmol/L [facility] Remisol Urea nitrogen [Mass/Vol] 20 mg/dL Normal 5 - 21 mg/dL [facility] Remisol Consent for Anesthesiaon Consent for Anesthesia [id number]#[id number]:127 Normal [facility] Creatinineon 04-07-2023 Creatinine [Mass/Vol] 0.9 mg/dL Normal 0.5-1.3 [facility] Comment on above: Performed By: #### 2 257944, 1043344, 8901375, 9983163, 99565633, 1944922 ####[facility] [address] [place] [address] Discharge Instructionson Discharge Instructions [id number]#[id number]:127 Normal [facility] Discharge Note-Nursingon Discharge Note-Nursing ZAIDIRADHA :1960 Visit [...] Diagnostic Test Results None Pharmacy Information [facility] New Follow Up Appointments after Discharge Follow Up with Jordan Yuan When: Where: [address] [place] [address]- Business (1) Follow Up with JOHN ASHBY When: In 0 days Where: [address] [place] [address]- Business (1) Medications What How Much When Instructions Next Dose Changed acetaminophen-oxycodone (Percocet 5 mg-325 mg oral tablet) See instructions 1-2 tab(s) Oral q4hr Pickup at [facility]/pharmacy #[id number] Next dose due after 10am Unchanged buPROPion (Wellbutrin XL 300 mg/ 24 hours Tab-ER) 1 Tablets By Mouth 2 times a day 04/07/23 @ 9pm Unchanged celecoxib (CeleBREX 100 mg Cap) 1 Capsules By Mouth 2 times a day as needed for for pain Pickup at [facility]/pharmacy #6177 04/07/23 @ 9pm Unchanged cephalexin (Keflex 500 mg Cap) 1 Capsules By Mouth Every 8 hours Duration: 7 Days Pickup at [facility]/pharmacy #6177 04/07/23 @ 2pm and bedtime Unchanged docusate (Colace 100 mg Cap) 1 Capsules By Mouth 2 times a day as needed for for constipation Pickup at [facility]/pharmacy #6177 04/07/23 @ 9pm Unchanged leflunomide (Arava [...] day 04/08/23 @ 9am Pharmacy Information [facility]/pharmacy #[id number]: [address] [place], [place] [phone] Test Results CBC BMP WBC: 9.6 E9/L [...] Lateralized/ 24, Shoulder Implant 04/06/2023 [employer] [place] humeral Stem Size 9, Shoulder Implant 04/06/2023 [employer] SutureCap, 36 neutral, shoulder Implant 04/06/2023 [employer] Humeral Insert, small, 36, +6, Shoulder (more content not included)... Normal [facility] HEMATOLOGYOrdered By: SYSTEM SYSTEM on 04-07-2023 Basophils/100 WBC (Bld) 0.2 % Normal 0.0 - 2.0 % [facility]eAutoSS Basophils/Leukocytes Auto (Bld) [Pure # fraction] 0.0 E9/L Normal 0.0 - 0.2 E9/L [facility] Eosinophils/100 WBC (Bld) 0.0 % Normal 0.0 - 8.0 % [facility]eAuto[facility] Eosinophils/Leukocytes Auto (Bld) [Pure # fraction] 0.0 E9/L Normal 0.0 - 0.5 E9/L [facility] Lymphocytes/100 WBC (Bld) 7.9 % Low 14.0 - 50.0 % [facility] Lymphocytes/Leukocytes Auto (Bld) [Pure # fraction] 0.8 E9/L Low 1.0 - 4.0 E9/L [facility] Monocytes/100 WBC (Bld) 14.0 % Normal 4.0 - 14.0 % [facility] Monocytes/Leukocytes Auto (Bld) [Pure # fraction] 1.3 E9/L High 0.2 - 1.0 E9/L [facility] Neutrophils/100 WBC (Bld) 77.9 % High 36.0 - 75.0 % [facility] Neutrophils/Leukocytes Auto (Bld) [Pure # fraction] 7.5 E9/L [...] Heme[facility] Platelets (Bld) [#/Vol] 215.0 E9/L Normal 150. 0 - 500.0 E9/L [facility] RBC (Bld) [#/Vol] 3.1 E12/L Low 4.3 - 5.9 E12/L [facility] WBC corrected for nucl RBC Auto (Bld) [#/Vol] 9.6 E9/L Normal 4.0 - 11.0 E9/L [facility] Inpatient Clinical Summaryon 04-07-2023 Inpatient Clinical Summary [address] [address] Clinical Summary Person Information: Name: RADHA ZAIDI Age: 62 Years : 1960 Sex: Female PCP: JOHN ASHBY DO Marital Status: Phone: [phone] Race: White Ethnicity: Non- or Language: Kenyan Visit Id: Visit Reason: OA RIGHT SHOULDER Speciality: Acuity: Enc Type: Observation Med Service: Medical Arrival: 04/06/2023 06:09:55 Discharge: Dispo Type: Address: [address] [place] [address] [address] [place] [phone] Provider Notes: Patient: RADHA ZAIDI Age: 62 [...] up: With: Address: When: [place] [address] Business (1) 04/19/2023 2:15 PM With: Address: When: JOHN ASHBY [address] [place] [phone] Business (1) Patient Education Information: Iris Yuan - Shoulder Replacement (Custom) [facility] Inpatient Patient Summaryon 04-07-2023 Inpatient Patient Summary [address] [address] Patient Discharge Instructions PERSON INFORMATION Name: ZAIDIRADHA Date of : 1960 Current Date: 04/07/2023 [...] up: With: Address: When: [place] [address] Business (1) 04/19/2023 2:15 PM With: Address: When: JOHN ASHBY [address] [place] [address] [place] [address] Business (1) In the event that this physician does not participate in your insurance network, please consult with your insurance company to find a nearby participating provider. Comment: DYAN Florentino CHERYLL J, have received the attached patient education materials/instructions and have verbalized understanding: Patient Signature __ Date Clinican/Nurse Signature Date HERE ARE THE MEDICATION CHANGES THAT OCCURRED DURING YOUR HOSPITAL STAY Medications to Continue Taking That Have Changed [id number], [address], [place] [phone], [phone] START: acetaminophen-oxycodone (Percocet 5 mg-325 mg oral tablet) 1-2 tab(s) Oral q4hr. Refills: 0. Last Dose: N ext Dose: STOP: acetaminophen-oxycodone (Percocet 5 mg-325 mg oral tablet) 1 Tablets By Mouth 3 times a day. Medications to Continue with No Changes [id number], [address], [place] [phone], [phone] celecoxib (CeleBREX 100 mg Cap) 1 Capsules By Mouth 2 times a day as needed for pain. Refills: 0. Last Dose: N ext Dose: cephalexin (Keflex 500 mg Cap) 1 Capsules By Mouth every 8 hours for 7 Days. Refills: 0. Last Dose: N ext Dose: docusate (Colace 100 mg Cap) 1 Capsules By Mouth 2 times a day as needed for constipation. Refills: 0. Last Dose: N ext Dose: Other Medications buPROPion (Wellbutrin XL 300 mg/24 hours Tab-ER) 1 Tablets By Mouth 2 times a day. Last Dose: N ext Dose: leflunomide (Arava 10 mg oral tablet) 1 Tablets By Mouth every day. Last Dose: N ext Dose: lisinopril (lisinopril 5 mg Tab) 1 Tablets By Mouth every day. Last Dose: N ext Dose: metoprolol (metoprolol 100 mg ER Tab) 1 Tablets By Mouth at bedtime. Last Dose: N ext Dose: pregabalin (Lyrica 150 mg Cap) 1 Capsules By Mouth 2 times a day. Last Dose: N ext Dose: tizanidine (Zanaflex 4 mg Tab) 1 tab(s) Oral in AM 3 tabs at bedtime. Last Dose: N ext Dose: upadacitinib (Rinvoq 15 mg oral tablet, extended release) 1 Tablets By Mouth every day. Last Dose: N ext Dose: Comment: MEDICATION LIST PROVIDED FOR YOU [...] Tablets By Mouth every day. Pharmacy Information: [facility] Tabitha [phone] (more content not included)... [facility] IntraOperative Documentson 0 04-07-2023 IntraOperative Documents [id number]:127 [facility] IntraOperative Documents [id number]#[id number]:127 [facility] Lyteson 04-07-2023 Anion gap [Moles/Vol] 6 mmol/L Normal 6-16 [facility] Comment on above: Performed By: #### 2 568643, 9278486, 4005079, 5385575, 98581389, 6499388 ####[facility] [address] [place] [address] Chloride [Moles/Vol] 118 mmol/L High 101-111 [facility] Comment on above: Performed By: #### 2 006441, 4991455, 4780303, 0026824, 36608398, 4892499 ####[facility] [address] [place] [address] CO2 [Moles/Vol] 23 mmol/L Normal 21-31 [facility] Comment on above: Performed By: #### 2 851516, 2019540, 4692666, 1416696, 90929685, 9071756 ####[facility] [address] [place] [address] Potassium [Moles/Vol] 4.0 mmol/L Normal 3.5-5.3 [facility] Comment on above: Performed By: #### 2 508042, 5901569, 9394875, 2339918, 65444574, 5455207 ####[facility] [address] [place] [address] Sodium [Moles/Vol] 143 mmol/L Normal 135-145 [facility] Comment on above: Performed By: #### 2 972444, 5066672, 4240748, 9856065, 61472275, 9367069 ####[facility] [address] [place] [address] Main OR Intraoperative Recor don 04-07-2023 Main OR Intraoperative Record IntraOp Document Type FT Summary Primary Physician: Jordan Yuan DO Finalized Date/Time: 04/07/23 14:30:58 Pt. Name: RADHA ZAIDI/Sex: 1960 Female Med Rec #: [id number] Physician: Jordan Yuan DO Financial #: [id number] Pt. Type: A Room/Bed: N3/01 Admit/Disch: 04/06/23 06:09:55 - 04/07/23 09:30:00 Institution: Case Times FT Entry 1 Patient Times In Room 04/06/23 09:32:00 Out Room 04/06/23 11:36:00 Procedure Times Start 04/06/23 10:14:00 Stop 04/06/23 11:30:00 Anesthesia Times Start 04/06/23 09:32:00 Stop 04/06/23 11:36:00 Block Timeout w/ 04/06/23 08:24:00 Anesthesia Last Modified By: Susi HARO, Dennis Arauz 04/06/23 11:35:46 General Comments: Right shoulder block performed by under ultrasound guidance. Leisa, RN to assist with the block. Block timeout at 0824. Patient's heartrate-78, SPo2- 100% on room air. patient tolerated block well. Block start at 0833. Block end at 0836. Patient transported via cart back to ASU bay and placed on SP02 monitor by Leisa, ESTRELLITA. -ESTRELLITA Tomlin 04/07/23 Chart opened to review and send charges [facility]FA Case Attendance FT Entry 1 Entry 2 Entry 3 Case Attendee Idris VICTORIA, Adiel Yuan DO, Jordan Goldman RN, Dennis Arauz Role Performed BEHAVIOR THERAPIST Surgeon - Primary Creping Machine Operator - Primary Time In 04/06/23 09:32:00 04/06/23 10:05:00 04/06/23 09:32:00 Time Out 04/06/23 11:36:00 04/06/23 11:16:00 04/06/23 11:36:00 Procedure SHOULDER TOTAL SHOULDER TOTAL SHOULDER TOTAL ARTHROPLASTY(Right) ARTHROPLASTY(Right) ARTHROPLASTY(Right) Comments , anesthesia feed inspection supervisor Last Modified By: Wanda MARI, Sharmaine Goldman RN, Dennis Goldman RNDennis 04/07/23 14:28:51 04/06/23 11:35:47 04/06/23 11:35:47 Entry 4 Entry 5 Entry 6 Case Attendee Valerie MARI, Jena Taylor CST, John Role Performed Scrub - Primary Scrub - Primary CORN SHELLER/SA Time In 04/06/23 09:32:00 04/06/23 09:32:00 04/06/23 09:32:00 Time Out 04/06/23 11:20:00 04/06/23 11:36:00 04/06/23 11:36:00 Procedure SHOULDER TOTAL SHOULDER TOTAL SHOULDER TOTAL ARTHROPLASTY(Right) ARTHROPLASTY(Right) ARTHROPLASTY(Right) Comments in orientation Last Modified By: Susi HARO, Dennis Goldman RN, Dennis Goldman RN, Dennis Arauz 04/06/23 11:35:47 04/06/23 11:35:47 04/06/23 11:35:47 Entry 7 Entry 8 Case Attendee Andie Fuentes Jennifer E Role Performed Staff - Other Staff - Other Time In 04/06/23 09:32:00 04/06/23 09:32:00 Time Out 04/06/23 11:36:00 04/06/23 11:13:00 Procedure SHOULDER TOTAL SHOULDER TOTAL ARTHROPLASTY(Right) ARTHROPLASTY(Right) Comments scrubbed in, retractor scrubbed in, retractor munoz munoz Last Modified By: Susi HARO, Dennis Goldman RN, Dennis Arauz 04/06/23 11:35:47 04/06/23 11:35:47 General Comments: Gunner [...] Jordan Yuan DO, Krupp RN, Valerie Cruz CORN SHELLER, Johnathan Hernandez Sydney A, Wilhelm CST, Alfredo [...] traffic control (more content not included)... Normal [facility] Main OR PACU I Recordon 03-12 Main OR PACU I Record PACU Phase I Docum ent Type FT Summary Primary Physician: Jordan Yuan DO Finalized Date/Time: 04/07/23 08:05:19 Pt. Name: RADHA ZAIDI/Sex: 1960 Female Med Rec #: [id number] Physician: Jordan Yuan DO Financial #: [id number] Pt. Type: O Room/Bed: [place] [address] Admit/Disch: 04/06/23 06:09:55 - Institution: Case Times [...] 08:04 Cate Gonsales RN 04/07/23 08:05 Normal [facility] Patient Education - Texton 0 04-07-2023 Patient Education - Text [place], [place] [facility] DISCHARGE INSTRUCTIONS: SHOULDER REPLACEMENT [...] site, or the development of persistent vomiting. _ Jordan Yuan, DO [facility] [address] [place] [address] Reviewed: [facility] Preoperative Documentson Preoperative Documents [id number]:127 [facility] Progress Note-Physicianon Progress Note-Physician Patient: RADHA [...] Pressure 63 mmHg SpO2 94 % Normal [facility] Comment on above: Result Comment: Elec tronically Signed By: Jordan Yuan DO\.br\Date and Time Signed: 04/07/23 07:40 EDT eGFRon 04-07-2023 GFR/1.73 sq M.predicted among non-blacks MDRD (S/P/Bld) [Vol rate/Area] 72 mL/min/1.73 m2 Normal >=59 [facility] Comment on above: Order Comment: Order added by Discern Expert. Result Comment: Grievance Coordinator dina kidney disease could be indicated at eGFR's of less than 60 mL/min/1.73m2. Kidney failure is indicated at less than 15 mL/min/1.73m2. Performed By: #### 2 261935, 6178187, 1278890, 6171944, 32681130, 1194434 ####[facility] [address] [place] [address] ABO/Rhon 04-06-2023 ABO/Rh Positive Invalid Interpretation Code [facility] Comment on above: Performed By: #### 1 [id number], 21383087, 40740052, 0089218 ####[facility] [address] [place] [address] ABO/Rh History Checkon 04-06 ABO/Rh History Check Verified Hx Blood Type Normal [facility] Comment on above: Performed By: #### 1 8059262, 19625446, 51206903, 4115275 ####[facility] [address] [place] [address] ABSCon 04-06-2023 ABSC Gel Interp Negative Normal [facility] Comment on above: Performed By: #### 1 4149035, 38323548, 98482339, 5867576 ####[facility] [address] [place] [address] BLOOD BANKOrdered By: Andra Nunez on 04-06-2023 ABO/Rh Interp Positive Invalid Interpretation Code [facility] BB Subsection ABSC Gel Interp Negative (04/06/23 7:23 AM) Normal [facility] BB Subsection Blood Bank ID#on 04-06-2023 BBID# [id number] Invalid Interpretation Code [facility] Comment on above: Performed By: #### 1 2291252, 07891181, 44114604, 5572338 ####[facility] [address] [place] [address] Consent for Treatmenton 03-12 Consent for Treatment [id number]:127 Normal [facility] H&P Updateon 04-06-2023 H&P Update [id number]#1.00CD:127 Normal [facility] Insurance Correspondence Off iceon 04-06-2023 Insurance Correspondence Office [id number]#[id number]:127 Normal [facility] Main OR Preoperative Recordo n 04-06-2023 Main OR Preoperative Record PreOp Document Type FT Summary Primary Physician: Jordan Yuan DO Finalized Date/Time: 04/06/23 09:32:24 Pt. Name: RADHA ZAIDI/Sex: 1960 Female Med Rec #: [id number] Physician: Jordan Yuan DO Financial #: [id number] Pt. Type: A Room/Bed: Admit/Disch: 04/06/23 06:09:55 [...] By: Dennis Goldman RN 04/06/23 09:32 Normal [facility] Monitor Recordon 04-06-2023 Monitor Record [id number]#[id number]:127 Normal [facility] Monitor Record [id number]:127 Normal [facility] Monitor Record [id number]:127 Normal [facility] Operative Reporton Operative Report Patient: ELIZABET ZAIDI Age: 62 years Sex: Female : 1960 Associated Diagnoses: None Author: Jordan Yuan DO DATE OF SURGERY: 04/06/2023 SURGEON: Jordan Yuan D.O. ORGANIZATIONAL DEVELOPMENT SPECIALIST: Anival Flores CFA PREOPERATIVE DIAGNOSIS: Massive rotator [...] 3. size +6 humeral insert 4. Revers Bristol size 9 stem with 36 (neutral) Suturecup OPERATIVE INDICATIONS: Radha is a 62-year-old poqxm-aoub-mwhnzxiz female who has had persistent right shoulder [...] and intraoperative instrumentation were performed with the ArthMilabra software. PROCEDURE: The correct operative site was [...] The depth-stop (more content not included)... Normal [facility] Comment on above: Result Comment: Elec tronically [...] The patient tolerated the procedure as expected. [facility] Comment on above: Result Comment: Elec tronically Signed By: Yanick Rai DO\.br\Date and Time Signed: 04/06/23 08:44 EDT Progress Note-Physicianon Progress Note-Physician Patient: RADHA ZAIDI Age: 62 years Sex: Female : 1960 Associated Diagnoses: None Author: Yanick Rai DO Postoperative Information Postoperative disposition: Postoperative disposition: To PACU. Optimetrix number: Optimetrix number [id number]. Anesthetic utilized: General. Regional: Interscalene Block. Health [...] pain, # 60 cap(s), Refills(s) 0, Pharmacy: [facility]/pharmacy #[id number], 160, cm, 03/25/23 6:16:00 EDT, Height/Length Dos (more content not included)... 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 Family History: Primary malignant neoplasm of prostate Father Acute myocardial infarction Mother Procedure history: Cervical laminectomy (5772050856). Amputation of finger (551762067). Removal of lung, Partial (92683). Open reduction and internal fixation of fracture Leg (035903182). Foot surgery (3454463912). Lumbar discectomy (604938794). Social History Social & Psychosocial Habits Alcohol [...] to auscultation. (more content not included)... Normal [facility] Comment on above: Result Comment: Elec tronically [...] mGy = na DAP = na Normal [facility] Consent for Procedure/Surger yon 04-05-2023 Consent for Procedure/Surgery [id number]#1.00CD:127 [address] [facility] CT Upper Extremity w/o Contr ast Righton [...] DO Transcribed by: DANISHA Technologist: CONSTANTINO Normal [facility] ABO/Rh Retypeon 03-24-2023 ABO/Rh Retype Interp Positive Invalid Interpretation Code [facility] Comment on above: Performed By: #### 1 [id number] ####[facility] [address] [place] [address] BLOOD BANKOrdered By: Andra Longoria on 03-24-2023 ABO/Rh Retype Interp Positive Invalid Interpretation Code [facility] BB Subsection BUNon 03-24-2023 Urea nitrogen [Mass/Vol] 28 mg/dL High 5-21 [facility] Comment on above: Performed By: #### 1 2383883, 7242003, 9988404, 6436816, 1344092, 5021363 ####[facility] [address] [place] [address] CBC w/Indiceson 03-24-2023 Erythrocyte distribution width (RBC) [Ratio] 14.5 % High 10.9-14.2 [facility] Comment on above: Performed By: #### 1 3537265, 6763667, 1776344, 8216887, 4336338, 7644613 ####[facility] [address] [place] [address] Hematocrit (Bld) [Volume fraction] 35.9 % Normal 34.0-46.0 [facility] Comment on above: Performed By: #### 1 8320526, 3127077, 7364888, 4667517, 0762173, 9814123 ####[facility] [address] [place] [address] Hemoglobin (Bld) [Mass/Vol] 11.9 g/dL Low 12.0-16.0 [facility] Comment on above: Performed By: #### 1 2222933, 9055140, 9706408, 4599644, 6674596, 6739817 ####[facility] [address] [place] [address] MCH (RBC) [Entitic mass] 32.3 pg Normal 27.0-34.0 [facility] Comment on above: Performed By: #### 1 1241923, 3327175, 2442602, 3889855, 6431163, 5404542 ####[address] [place] [address] MCHC (RBC) [Mass/Vol] 33.1 g/dL Normal 31.4-36.0 [facility] Comment on above: Performed By: #### 1 0823995, 3547144, 9579526, 0865143, 8005996, 3515708 ####[address] [place] [address] MCV (RBC) [Entitic vol] 97.4 fL Normal 80.0-100.0 [facility] Comment on above: Performed By: #### 1 5417946, 0787917, 5238793, 0277769, 8935203, 4048617 ####[address] [place] [address] Platelet mean volume (Bld) [Entitic vol] 7.4 fL Normal 6.4-10.8 [facility] Comment on above: Performed By: #### 1 1938984, 0554323, 4243024, 8300298, 1336243, 9010420 ####[address] [place] [address] Platelets (Bld) [#/Vol] 207.0 E9/L Normal 150. 0-500. 0 [facility] Comment on above: Performed By: #### 1 6618909, 5290614, 5719035, 2275809, 3173140, 3081427 ####[address] [place] [address] RBC (Bld) [#/Vol] 3.7 E12/L Low 4.3-5.9 [facility] Comment on above: Performed By: #### 1 3026030, 3325124, 2171854, 1453108, 2071206, 0486656 ####[facility] [address] [place] [address] WBC corrected for nucl RBC Auto (Bld) [#/Vol] 3.5 E9/L Low 4.0-11.0 [facility] Comment on above: Performed By: #### 1 4636392, 5215573, 9434289, 7141779, 1269887, 9195916 ####[facility] [address] [place] [address] CHEMISTRYOrdered By: SYSTEM SYSTEM on 03-24-2023 Anion gap [Moles/Vol] 12 mmol/L Normal 6 - 16 mEq/L [facility] Remisol Chloride [Moles/Vol] 111 mmol/L Normal 101 - 1 11 mmol/L [facility] Remisol CO2 [Moles/Vol] 20 mmol/L Low 21 - 31 mmol/L [facility] Remisol Creatinine [Mass/Vol] 1.2 mg/dL Normal 0.5 - 1.3 mg/dL [facility] Remisol GFR/1.73 sq M.predicted among non-blacks MDRD (S/P/Bld) [Vol rate/Area] 51 mL/min/1.73 m2 Low >=59mL/min /1.73 m2 [facility] Chem S Glucose [Mass/Vol] 84 mg/dL Normal 55 - 199 mg/dL [facility] Remisol Potassium [Moles/Vol] 4.2 mmol/L Normal 3.5 - 5.3 mmol/L [facility] Remisol Sodium [Moles/Vol] 139 mmol/L Normal 135 - 145 mmol/L [facility] Remisol Urea nitrogen [Mass/Vol] 28 mg/dL High 5 - 21 mg/dL [facility] Remisol Consent for Treatmenton 03-11 Consent for Treatment [id number]:127 Normal [facility] Creatinineon 03-24-2023 Creatinine [Mass/Vol] 1.2 mg/dL Normal 0.5-1.3 Fis [facility] Comment on above: Performed By: #### 1 1392306, 6761859, 8075159, 5632936, 5441906, 2231011 ####[facility] [address] [place] [address] Glucoseon 03-24-2023 Glucose [Mass/Vol] 84 mg/dL Normal 55-199 [facility] Comment on above: Performed By: #### 1 8084195, 3727107, 1977988, 1337400, 3062793, 7046574 ####[facility] [address] [place] [address] HEMATOLOGYOrdered By: Andra Longoria on 03-24-2023 Erythrocyte [...] HemeAutoSS Platelets (Bld) [#/Vol] 207.0 E9/L Normal 150. 0 - 500.0 E9/L [facility] HemeAutoSS RBC (Bld) [#/Vol] 3.7 E12/L Low 4.3 - 5.9 E12/L [facility] HemeAutoSS WBC corrected for nucl RBC Auto (Bld) [#/Vol] 3.5 E9/L Low 4.0 - 11.0 E9/L [facility] HemeAutoSS Lyteson 03-24-2023 Anion gap [Moles/Vol] 12 mmol/L Normal 6-16 Fis her [facility] Comment on above: Performed By: #### 1 9659906, 3825604, 2419321, 2295554, 8723315, 2089422 ####[facility] [address] [place] [address] Chloride [Moles/Vol] 111 mmol/L Normal 101-111 Fish er [facility] Comment on above: Performed By: #### 1 5357294, 6830585, 9142842, 0452067, 9367314, 5038918 ####[facility] [address] [place] [address] CO2 [Moles/Vol] 20 mmol/L Low 21-31 [facility] Comment on above: Performed By: #### 1 6021973, 2213047, 4723257, 9712495, 9538763, 1377308 ####[facility] [address] [place] [address] Potassium [Moles/Vol] 4.2 mmol/L Normal 3.5-5.3 Fis [facility] Comment on above: Performed By: #### 1 3711611, 8809562, 9775821, 3020797, 3671472, 7875941 ####[facility] [address] [place] [address] Sodium [Moles/Vol] 139 mmol/L Normal 135-145 [facility] Comment on above: Performed By: #### 1 8742775, 7077321, 1350375, 7907735, 4122503, 1406618 ####[facility] [address] [place] [address] UA With Cult Reflexon 2022 Bilirubin Ql (U) Negative Normal Negative [facility] Comment on above: Performed By: #### 1 5608610 #### [facility] [address] [place] [address] Clarity (U) CLEAR Normal Clear [facility] Comment on above: Performed By: #### 1 4941241 #### [facility] [address] [place] [address] Color (U) YELLOW Normal Yellow [facility] Comment on above: Performed By: #### 1 2284916 #### [facility] [address] [place] [address] Epithelial cells.squamous LM.HPF (Urine sed) [#/Area] 0-2 Normal 0-2 [facility] Comment on above: Performed By: #### 1 9113045 #### [facility] [address] [place] [address] Fine Granular Casts LM Ql (Urine sed) 0-3 Normal [facility] Comment on above: Performed By: #### 1 0051379 #### [facility] [address] [place] [address] Glucose Test strip (U) [Mass/Vol] Negative Normal Negative [facility] Comment on above: Performed By: #### 1 6504886 #### [facility] [address] [place] [address] Hemoglobin Ql (U) Negative Normal Negative [facility] Comment on above: Performed By: #### 1 8564380 #### [facility] [address] [place] [address] Ketones (U) [Mass/Vol] Negative Normal Negative Fi [facility] Comment on above: Performed By: #### 1 8874651 #### [facility] [address] [place] [address] [place].plasma/[place]. RBC (Bld) [Mass ratio] 0-3 Normal 0-3 [facility] Comment on above: Performed By: #### 1 8049663 #### [facility] [address] [place] [address] Mucus Ql (Urine sed) TRACE Normal [facility] Comment on above: Performed By: #### 1 8023093 #### [facility] [address] [place] [address] Nitrite Ql (U) Negative Normal Negative [facility] Comment on above: Performed By: #### 1 5549552 #### [facility] [address] [place] [address] pH (U) 6.0 [pH] Invalid Interpretation Code 5.0-9.0 [facility] Comment on above: Performed By: #### 1 2799135 #### [facility] [address] [place] [address] Protein (U) [Mass/Vol] Negative Normal Negative [facility] Comment on above: Performed By: #### 1 8021329 #### [facility] [address] [place] [address] Specific gravity (U) [Rel density] >=1.030 Invalid Interpretation Code 1.005-1.03 0 [facility] Comment on above: Performed By: #### 1 6626807 #### [facility] [address] [place] [address] Type of Urine collection method Clean Catch Normal [facility] Comment on above: Performed By: #### 1 3602513 #### [facility] [address] [place] [address] Urobilinogen Qn (U) 0.2 {Rajwinder'U}/dL Normal 0.0-1.0 [facility] Comment on above: Performed By: #### 1 6698716 #### [facility] [address] [place] [address] WBC Auto Ql (U) Negative Normal Negative [facility] Comment on above: Performed By: #### 1 3804823 #### [facility] [address] [place] [address] WBC LM.HPF (Urine sed) [#/Area] 0-5 Normal 0-5 [facility] Comment on above: Performed By: #### 1 3535278 #### [facility] [address] [place] [address] URINALYSISOrdered By: Indira calix on 03-24-2023 Bilirubin Ql (U) Negative (03/24/23 3:05 PM) Normal Negative [facility] UA Auto SS Clarity (U) Clear (03/24/23 [...] PM) Normal Negative [facility] UA Auto SS [place].plasma/[place]. RBC (Bld) [Mass ratio] 0-3 /HPF Normal 0-3/HPF FT UA Auto SS Mucus Ql (Urine sed) Trace (03/24/23 3:05 PM) Normal FT UA Auto SS Nitrite Ql (U) Negative (03/24/23 3:05 PM) Normal Negative [facility] UA Auto SS pH (U) 6.0 *NA* (03/24/23 3:05 PM) Invalid Interpretation Code 5.0 - 9.0 [facility] UA Auto SS Protein (U) [Mass/Vol] Negative (03/24/23 3:05 PM) Normal Negative [facility] UA Auto SS Specific gravity (U) [Rel density] >=1.030 *NA* (03/24/23 3:05 PM) Invalid Interpretation Code 1.005 - 1.030 FT UA Auto SS UA Spec Desc Clean Catch (03/24/23 3:05 PM) Normal [facility] UA Auto SS Urobilinogen Qn (U) 0.3721199 {Rajwinder'U}/dL Normal 0.0 - 1.0 EU/dL [facility] [...] mGy = na DAP = na Normal [facility] eGFRon 03-24-2023 GFR/1.73 sq M.predicted among non-blacks MDRD (S/P/Bld) [Vol rate/Area] 51 mL/min/1.73 m2 Low >=59 [facility] Comment on above: Order Comment: Order added by Discern Expert. Result Comment: Grievance Coordinator dina kidney disease could be indicated at eGFR's of less than 60 mL/min/1.73m2. Kidney failure is indicated at less than 15 mL/min/1.73m2. Performed By: #### 1 9422960, 9331794, 4944240, 1303692, 5446859, 6173401 ####[facility] [address] [place] [address] Physician Orderon 03-23-2023 Physician Order [id number]#1.00CD:127 Normal [facility] XR SHOULDER RT 2V or >on XR [...] VANDANA YUAN Date: 2022-10-07 22:08 Normal [facility] CBC AUTO DIFFon 09-16-2022 BASO # 0.0 103/ul Normal 0.0-0.1 [facility] Comment on above: Performed By: #### C BC ####[facility] [address] [place] [address]Dr. Andrade Alvarado Basophils/100 WBC (Bld) 0.5 % Normal 0.2-2.0 [facility] Comment on above: Performed By: #### C BC ####[facility] [address] [place], [place] [address]DrMehreen Alvarado EO # 0.1 103/ul Normal 0.0-0.7 [facility] Comment on above: Performed By: #### C BC ####[facility] [address] [place], [place] [address]Dr. Andrade Alvarado Eosinophils/100 WBC (Bld) 2.3 % Normal 0.9-7.0 [facility] Comment on above: Performed By: #### C BC ####[facility] [address] [place] [address]Dr. Andrade Alvarado Erythrocyte distribution width (RBC) [Ratio] 13.7 % Normal 11.0-15.0 [facility] Comment on above: Performed By: #### C BC ####[facility] [address] [place], [place] [address]Dr. Andrade Alvarado Hematocrit (Bld) [Volume fraction] 32.8 % Critically low 36.0-48.0 [facility] Comment on above: Performed By: #### C BC ####[facility] [address] [place], [place] [address]Dr. Andrade Alvarado Hemoglobin (Bld) [Mass/Vol] 10.9 g/dL Critically low 12.0-16.0 [facility] Comment on above: Performed By: #### C BC ####[facility] [address] [place] [address]Dr. Andrade Alvarado IG # 0.02 10e3/ul Normal 0.00-0.03 [facility] Comment on above: Performed By: #### C BC ####[facility] [address] [place], [place] [address]Dr. Andrade Alvarado IG % 0.5 % Normal 0.0-0.5 [facility] Comment on above: Performed By: #### C BC ####[facility] [address] [place], [place] [address]Dr. Andrade Alvarado LYMPH # 1.6 103/ul Normal 1.2-3.8 [facility] Comment on above: Performed By: #### C BC ####[facility] [address] [place], [place] [address]Dr. Andrade Alvarado Lymphocytes/100 WBC (Bld) 41.8 % Normal 20.5-60.0 [facility] Comment on above: Performed By: #### C BC ####[facility] [address] [place], [place] [address]Dr. Andrade Alvarado MANUAL DIFF REQ NO Normal [facility] Comment on above: Performed By: #### C BC ####[facility] [address] [place], [place] [address]Dr. Andrade Alvarado MCH (RBC) [Entitic mass] 31.9 pg Normal 26.7-34.0 [facility] Comment on above: Performed By: #### C BC ####[facility] [address] [place], [place] [address]Dr. Andrade Alvarado MCHC (RBC) [Mass/Vol] 33.2 g/dL Normal 29.9-35.2 [facility] Comment on above: Performed By: #### C BC ####[facility] [address] [place], [place] [address]DrMehreen Alvarado MCV (RBC) [Entitic vol] 95.9 fL Normal 81.0-99.0 [facility] Comment on above: Performed By: #### C BC ####[facility] [address] [place] [address]DrMehreen Alvarado MONO # 0.5 103/ul Normal 0.3-0.8 [facility] Comment on above: Performed By: #### C BC ####[facility] [address] [place], [place] [address]DrMehreen Alvarado Monocytes/100 WBC (Bld) 13.1 % Critically high 1.7-12. 0 [facility] Comment on above: Performed By: #### C BC ####[facility] [address] [place], [place] [address]DrMehreen Andrade Alvarado NEUT # 1.6 103/ul Normal 1.4-6.5 [facility] Comment on above: Performed By: #### C BC ####[facility] [address] [place], [place] [address]DrMehreen Andrade Alvarado Neutrophils/100 WBC (Bld) 41.8 % Critically low 43.0-75.0 [facility] Comment on above: Performed By: #### C BC ####[facility] [address] [place], [place] [address]DrMehreen Andrade Alvarado Platelet mean volume (Bld) [Entitic vol] 8.8 fL Critically low 9.5-13.5 [facility] Comment on above: Performed By: #### C BC ####[facility] [address] [place], [place] [address]Dr. Andrade Alvarado PLT 219 103/ul Normal 150-450 [facility] Comment on above: Performed By: #### C BC ####[facility] [address] [place], [place] [address]DrMehreen Andrdae Alvarado RBC 3.42 106/ul Critically low 4.20-5.40 [facility] Comment on above: Performed By: #### C BC ####[facility] [address] [place], [place] [address]Dr. Andrade Alvarado WBC 3.9 103/ul Critically low 4.0-11.0 [facility] Comment on above: Performed By: #### C BC ####[facility] [address] [place] [address]Dr. Andrade Alvarado FERRITINon 09-16-2022 Ferritin [Mass/Vol] 292.0 ng/mL Critically high 8.0-252.0 [facility] Comment on above: Performed By: #### F ERR, B12FOL, FETIBC #### [facility] [address] [place] [address] [address] Andrade Alvarado IRON AND TIBCon 09-16-2022 % SATURATION 76.2 % Normal [facility] Comment on above: Performed By: #### F ERR, B12FOL, FETIBC #### [facility] [address] [place] [address] [address] Andrade Alvarado Iron [Mass/Vol] 259.0 ug/dL Critically high 50.0-170.0 [facility] Comment on above: Performed By: #### F ERR, B12FOL, FETIBC #### [facility] [address] [place] [address] [address] Andrade Alvarado TIBC DIRECT 340.0 ug/dL Normal 250.0-450. 0 [facility] Comment on above: Performed By: #### F ERR, B12FOL, FETIBC #### [facility] [address] [place] [address] [address] Andrade Alvarado PROF 14(COMP METB)on 023 Albumin [Mass/Vol] 4.0 g/dL Normal 3.4-5.0 [facility] Comment on above: Performed By: #### C MP ####[facility] [address] [place] [address]Dr. Andrade Alvarado Albumin/Globulin [Mass ratio] 1.3 {ratio} Normal [facility] Comment on above: Performed By: #### C MP ####[facility] [address] [place] [address]Dr. Andrade Alvarado ALP [Catalytic activity/Vol] 47 U/L Normal 46-116 [facility] Comment on above: Performed By: #### C MP ####[facility] Kzkomnqvqp[address] [place] [phone]. Andrade Alvarado ALT [Catalytic activity/Vol] 23 U/L Normal 14-59 [facility] Comment on above: Performed By: #### C MP ####[facility] Ftvmrpifun82[address] [place] [phone]. Andrade Alvarado Anion gap [Moles/Vol] 12.1 mmol/L Normal Th e [facility] Comment on above: Performed By: #### C MP ####[facility] Viqpvzunju6[address] [place] [phone]. Andrade Alvarado AST [Catalytic activity/Vol] 23 U/L Normal 15-37 [facility] Comment on above: Performed By: #### C MP ####[facility] [address]vvidvepbu[address] [place] [address]Dr. Andrade Christiano Bilirubin [Mass/Vol] 0.4 mg/dL Normal 0.2-1.0 [facility] Comment on above: Performed By: #### C MP ####[facility] [address] [place], [place] [address]Dr. Andrade Christiano Calcium [Mass/Vol] 9.3 mg/dL Normal 8.5-10.1 [facility] Comment on above: Performed By: #### C MP ####[facility] Cjijqtkfzf35[address] [place] [address]Dr. Andrade Christiano Chloride [Moles/Vol] 108 mmol/L Critically high 98-107 [facility] Comment on above: Performed By: #### C MP ####[facility] Kyywoadqxm67[address] [place] [phone]. Andrade Alvarado CO2 [Moles/Vol] 26.9 mmol/L Normal 21.0-32.0 [facility] Comment on above: Performed By: #### C MP ####[facility] Cdphdwvgfj2437 [place] [address]Dr. Andrade Chritsiano Creatinine [Mass/Vol] 0.87 mg/dL Normal 0.55-1.02 [facility] Comment on above: Performed By: #### C MP ####[facility] Blxganzjnh45[address] [place] [phone]. Andrade Alvarado EGFR-AF KENYAN >60 Normal >=60 [facility] Comment on above: Performed By: #### C MP ####[facility] Pdopuhsmwh8279 [place] [phone]. Andrade Alvarado EGFR-NON AF KENYAN >60 Normal >=60 [facility] Comment on above: Performed By: #### C MP ####[facility] Tipqardbsk5[address] [place] [phone]. Andrade Alvarado Globulin (S) [Mass/Vol] 3.0 g/dL Normal [facility] Comment on above: Performed By: #### C MP ####[facility] Bdxftfrxao8[address] [place] [address]Dr. Andrade Alvarado Glucose [Mass/Vol] 102 mg/dL Normal 74-106 [facility] Comment on above: Performed By: #### C MP ####[facility] Vwuiahmvdj8863 [place] [address]Dr. Andrade Alvarado Potassium [Moles/Vol] 4.0 mmol/L Normal 3.5-5.1 [facility] Comment on above: Performed By: #### C MP ####[facility] Hzovecuyfd3936 [place] [phone]. Andrade Alvarado Protein [Mass/Vol] 7.0 g/dL Normal 6.4-8.2 [facility] Comment on above: Performed By: #### C MP ####[facility] Yddfnxsnwh2956 [place] [phone]. Andrade Alvarado Sodium [Moles/Vol] 143 mmol/L Normal 136-145 [facility] Comment on above: Performed By: #### C MP ####[facility] Gptwziyqit01[address] [place] [address]Dr. Andrade Alvarado Urea nitrogen [Mass/Vol] 25.0 mg/dL Critically high 7.0-18.0 [facility] Comment on above: Performed By: #### C MP ####[facility] Eskxbbxgvy87[address] [place], [place] [address]Nh. Andrade Alvarado Urea nitrogen/Creatinine [Mass ratio] 28.7 mg/mg Normal [facility] Comment on above: Performed By: #### C MP ####[facility] Cprvmojlxx3[address] [place], [place] [address]EnMehreen Alvarado SED RATE WESTERGRENon 2022 SED RATE 11 mm/hr Normal <=30 [facility] Comment on above: Performed By: #### S EDR ####[facility] Xvzmfguegb0692 [place], [place] [address]Vu. Andrade Alvarado VIT B12 AND FOLATEon 023 Cobalamin (Vitamin B12) [Mass/Vol] 249.0 pg/mL Normal 193.0-986. 0 [facility] Comment on above: Performed By: #### F ERR, B12FOL, FETIBC #### [facility] [address] [place] [address] [address] Andrade Alvarado FOLATE 14.00 ng/mL Normal 8.60-58.90 [facility] Comment on above: Performed By: #### F ERR, B12FOL, FETIBC #### [facility] [address] [place] [address] [address] Andrade Alvarado MG MAMM SCREEN 3D BRENNA CADon 2022 MG MAMM SCREEN 3D BRENNA CAD Patient: RADHA ZAIDI Exam Date: 2022 : 1960 Gender:F Ordering : DR JOHN ASHBY D.O. Admission #: [id number] Family : Order #: [id number] CLICK HERE TO VIEW EXAM RADIOLOGY REPORT [...] prostate cancer at age 72. LOCATION: [facility] BREAST COMPOSITION: Scattered areas fibroglandular density. FINDINGS: [...] Teixeira M.D. on 06/09/2022 at 15:30 Normal [facility] CBC AUTO DIFFon 05-20-2022 BASO # 0.0 103/ul Normal 0.0-0.1 [facility] Comment on above: Performed By: #### C BC ####[facility] Xcvkimbdjc9638 [place] [address]Dr. Andrade Alvarado Basophils/100 WBC (Bld) 1.0 % Normal 0.2-2.0 [facility] Comment on above: Performed By: #### C BC ####[facility] Dggfyswhfv2221 [place] [address]Dr. Andrade Alvarado EO # 0.1 103/ul Normal 0.0-0.7 [facility] Comment on above: Performed By: #### C BC ####[facility] Vhxjmeqjde4[address] [place] [address]Dr. Andrade Alvarado Eosinophils/100 WBC (Bld) 2.5 % Normal 0.9-7.0 [facility] Comment on above: Performed By: #### C BC ####[facility] Rmgvtcxvkm1447 [place] [address]Dr. Andrade Alvarado Erythrocyte distribution width (RBC) [Ratio] 13.0 % Normal 11.0-15.0 [facility] Comment on above: Performed By: #### C BC ####[facility] Nomhqhqnyw37[address] [place] [address]Dr. Andrade Alvarado Hematocrit (Bld) [Volume fraction] 34.9 % Critically low 36.0-48.0 [facility] Comment on above: Performed By: #### C BC ####[facility] Kzkjfseijv4067 [place] [phone]. Andrade Alvarado Hemoglobin (Bld) [Mass/Vol] 11.6 g/dL Critically low 12.0-16.0 [facility] Comment on above: Performed By: #### C BC ####[facility] Mtoeswroqf35[address] [place] [phone]. Andrade Alvarado IG # 0.02 10e3/ul Normal 0.00-0.03 [facility] Comment on above: Performed By: #### C BC ####[facility] Yowryzxlul55[address] [place] [address]Dr. Andrade Alvarado IG % 0.5 % Normal 0.0-0.5 [facility] Comment on above: Performed By: #### C BC ####[facility] Nifmronibr038[address] [place] [address]Dr. Andrade Alvarado LYMPH # 1.9 103/ul Normal 1.2-3.8 [facility] Comment on above: Performed By: #### C BC ####[facility] Hstrvgqpei3602 [place] [address]Dr. Andrade Alvarado Lymphocytes/100 WBC (Bld) 46.1 % Normal 20.5-60.0 [facility] Comment on above: Performed By: #### C BC ####[facility] Lkyxquroox73[address] [place] [address]Dr. Andrade Alvarado MANUAL DIFF REQ NO Normal [facility] Comment on above: Performed By: #### C BC ####[facility] Uknquffqib34[address] [place] [address]Dr. Andrade Alvarado MCH (RBC) [Entitic mass] 32.3 pg Normal 26.7-34.0 [facility] Comment on above: Performed By: #### C BC ####[facility] Ykjkrtawph1684 [place] [address]Dr. Andrade Alvarado MCHC (RBC) [Mass/Vol] 33.2 g/dL Normal 29.9-35.2 [facility] Comment on above: Performed By: #### C BC ####[facility] Mnoakvirdg[address] [place] [phone]. Andrade Alvarado MCV (RBC) [Entitic vol] 97.2 fL Normal 81.0-99.0 [facility] Comment on above: Performed By: #### C BC ####[facility] Zciqqgkebr7274 [place] [phone]. Andrade Alvarado MONO # 0.5 103/ul Normal 0.3-0.8 [facility] Comment on above: Performed By: #### C BC ####[facility] Uvosvguqcu6[address] [place] [address]Dr. Andrade Alvarado Monocytes/100 WBC (Bld) 13.5 % Critically high 1.7-12. 0 [facility] Comment on above: Performed By: #### C BC ####[facility] [address] [place], [place] [address]Dr. Andrade Alvarado NEUT # 1.5 103/ul Normal 1.4-6.5 [facility] Comment on above: Performed By: #### C BC ####[facility] Uqmetisunv9[address] [place] [address]Dr. Andrade Alvarado Neutrophils/100 WBC (Bld) 36.4 % Critically low 43.0-75.0 [facility] Comment on above: Performed By: #### C BC ####[facility] [address]wh[address]rxe[address] [place], [place] [address]Dr. Andrade Alvarado Platelet mean volume (Bld) [Entitic vol] 8.9 fL Critically low 9.5-13.5 [facility] Comment on above: Performed By: #### C BC ####[facility] Ehlpkfjawq[address] [place] [phone]. Andrade Christiano PLT 237 103/ul Normal 150-450 [facility] Comment on above: Performed By: #### C BC ####[facility] Phcqoeasue7[address] [place] [phone]. Andrade Alvarado RBC 3.59 106/ul Critically low 4.20-5.40 [facility] Comment on above: Performed By: #### C BC ####[facility] Puijrapikc[address] [place], [place] [address]AjMehreen Alvarado WBC 4.0 103/ul Normal 4.0-11.0 [facility] Comment on above: Performed By: #### C BC ####[facility] Jtsqbpumqq6355 [place], [place] [address]UdMehreen Alvarado CRPon 05-20-2022 CRP [Mass/Vol] mg/L Normal <=1.0 [facility] Comment on above: Performed By: #### C MP, CRP, TSH ####[facility] [address]xqkxvfeni[address] [place] [phone] Alvarado PROF 14(COMP METB)on 022 Albumin [Mass/Vol] 4.2 g/dL Normal 3.4-5.0 [facility] Comment on above: Performed By: #### C MP, CRP, TSH #### [facility] [address] [place] [address] [address] Andrade Alvarado Albumin/Globulin [Mass ratio] 1.3 {ratio} Normal [facility] Comment on above: Performed By: #### C MP, CRP, TSH #### [facility] [address] [place] [address] [address] Andrade Alvarado ALP [Catalytic activity/Vol] 50 U/L Normal 46-116 [facility] Comment on above: Performed By: #### C MP, CRP, TSH #### [facility] [address] [place] [address] [address] Andrade Alvarado ALT [Catalytic activity/Vol] 23 U/L Normal 14-59 [facility] Comment on above: Performed By: #### C MP, CRP, TSH #### [facility] [address] [place] [address] [address] Andrade Alvarado Anion gap [Moles/Vol] 11.3 mmol/L Normal [facility] Comment on above: Performed By: #### C MP, CRP, TSH #### [facility] [address] [place] [address] [address] Andrade Alvarado AST [Catalytic activity/Vol] 23 U/L Normal 15-37 [facility] Comment on above: Performed By: #### C MP, CRP, TSH #### [facility] [address] [place] [address] [address] Andrade Alvarado Bilirubin [Mass/Vol] 0.5 mg/dL Normal 0.2-1.0 [facility] Comment on above: Performed By: #### C MP, CRP, TSH #### [facility] [address] [place] [address] Dr. Andrade Alvarado Calcium [Mass/Vol] 9.3 mg/dL Normal 8.5-10.1 [facility] Comment on above: Performed By: #### C MP, CRP, TSH #### [facility] [address] [place] [address] [address] Andrade Alvarado Chloride [Moles/Vol] 104 mmol/L Normal 98-107 [facility] Comment on above: Performed By: #### C MP, CRP, TSH #### [facility] [address] [place] [address] Dr. Andrade Alvarado CO2 [Moles/Vol] 27.2 mmol/L Normal 21.0-32.0 [facility] Comment on above: Performed By: #### C MP, CRP, TSH #### [facility] [address] [place] [address] Dr. Andrade Alvarado Creatinine [Mass/Vol] 0.99 mg/dL Normal 0.55-1.02 [facility] Comment on above: Performed By: #### C MP, CRP, TSH #### [facility] [address] [place] [address] Dr. Andrade Alvarado EGFR-AF KENYAN >60 Normal >=60 [facility] Comment on above: Performed By: #### C MP, CRP, TSH #### [facility] [address] [place] [address] Dr. Andrade Alvarado EGFR-NON AF KENYAN 57 mL/min/1.73m2 Critically low >=60 [facility] Comment on above: Performed By: #### C MP, CRP, TSH #### [facility] [address] [place] [address] Dr. Andrade Alvarado Globulin (S) [Mass/Vol] 3.3 g/dL Normal T [facility] Comment on above: Performed By: #### C MP, CRP, TSH #### [facility] [address] [place] [address] [address] Andrade Alvarado Glucose [Mass/Vol] 97 mg/dL Normal 74-106 [facility] Comment on above: Performed By: #### C MP, CRP, TSH #### [facility] [address] [place] [address] [address] Andrade Alvarado Potassium [Moles/Vol] 3.5 mmol/L Normal 3.5-5.1 [facility] Comment on above: Performed By: #### C MP, CRP, TSH #### [facility] [address] [place] [address] Dr. Andrade Alvarado Protein [Mass/Vol] 7.5 g/dL Normal 6.4-8.2 [facility] Comment on above: Performed By: #### C MP, CRP, TSH #### [facility] [address] [place] [address] [address] Andrade Alvarado Sodium [Moles/Vol] 139 mmol/L Normal 136-145 [facility] Comment on above: Performed By: #### C MP, CRP, TSH #### [facility] [address] [place] [address] [address] Andrade Alvarado Urea nitrogen [Mass/Vol] 22.0 mg/dL Critically high 7.0-18.0 [facility] Comment on above: Performed By: #### C MP, CRP, TSH #### [facility] [address] [place] [address] Dr. Andrade Alvarado Urea nitrogen/Creatinine [Mass ratio] 22.2 mg/mg Normal [facility] Comment on above: Performed By: #### C MP, CRP, TSH #### [facility] [address] [place] [address] Dr. Andrade Alvarado SED RATE [facility] 2021 SED RATE 22 mm/hr Normal <=30 [facility] Comment on above: Performed By: #### S EDR ####[facility] Rohbegmjgg[address] [place] [address]DrMehreen Alvarado TSHon 05-20-2022 TSH 1.373 uIU/mL Normal 0.358-3.74 0 [facility] Comment on above: Performed By: #### C MP, CRP, TSH #### [facility] [address] [place], [place] [address] Dr. Andrade Alvarado CBC AUTO DIFFon 02-16-2022 BASO # 0.0 103/ul Normal 0.0-0.1 [facility] Comment on above: Performed By: #### C BC ####[facility] Uqngdrvqrw4093 [place] [address]DrMehreen Alvarado Basophils/100 WBC (Bld) 0.9 % Normal 0.2-2.0 [facility] Comment on above: Performed By: #### C BC ####[facility] Gqlumonumh77[address] [place] [address]DrMehreen Alvarado EO # 0.1 103/ul Normal 0.0-0.7 [facility] Comment on above: Performed By: #### C BC ####[facility] Dscocggucq7370 [place] [address]DrMehreen Alvarado Eosinophils/100 WBC (Bld) 2.3 % Normal 0.9-7.0 [facility] Comment on above: Performed By: #### C BC ####[facility] Bzijdmpgwj9[address] [place] [address]DrMehreen Alvarado Erythrocyte distribution width (RBC) [Ratio] 12.6 % Normal 11.0-15.0 [facility] Comment on above: Performed By: #### C BC ####[facility] Fyspzjvozn5[address] [place] [address]DrMehreen Alvarado Hematocrit (Bld) [Volume fraction] 37.8 % Normal 36.0-48.0 [facility] Comment on above: Performed By: #### C BC ####[facility] Yntjcetkrr9312 [place] [address]DrMehreen Alvarado Hemoglobin (Bld) [Mass/Vol] 12.3 g/dL Normal 12.0-16.0 [facility] Comment on above: Performed By: #### C BC ####[facility] Zpbkupqkxd[address] [place] [id number]. Andrade Alvarado IG # 0.02 10e3/ul Normal 0.00-0.03 [facility] Comment on above: Performed By: #### C BC ####[facility] Vwhsuvbsbm99[address] [place] [address]Dr. Andrade Alvarado IG % 0.5 % Normal 0.0-0.5 [facility] Comment on above: Performed By: #### C BC ####[facility] Zgydmwiokp58[address] [place] [address]Dr. Andrade Alvarado LYMPH # 2.1 103/ul Normal 1.2-3.8 [facility] Comment on above: Performed By: #### C BC ####[facility] Yqwjtlqkvq38[address] [place] [address]Dr. Kellengregory Alvarado Lymphocytes/100 WBC (Bld) 48.3 % Normal 20.5-60.0 [facility] Comment on above: Performed By: #### C BC ####[facility] Rsusgaicnm9475 [place] [address]Dr. Andrade Alvarado MANUAL DIFF REQ NO Normal [facility] Comment on above: Performed By: #### C BC ####[facility] [address] [place], [place] [address]Dr. Andrade Alvarado MCH (RBC) [Entitic mass] 31.9 pg Normal 26.7-34.0 [facility] Comment on above: Performed By: #### C BC ####[facility] [address]bjj[address] [place], [place] [address]Dr. Andrade Alvarado MCHC (RBC) [Mass/Vol] 32.5 g/dL Normal 29.9-35.2 [facility] Comment on above: Performed By: #### C BC ####[facility] Srqenoucya[address] [place], [place] [address]Dr. Andrade Alvarado MCV (RBC) [Entitic vol] 97.9 fL Normal 81.0-99.0 [facility] Comment on above: Performed By: #### C BC ####[facility] Hrajrjznwc[address] [place] [id number]. Andrade Alvarado MONO # 0.5 103/ul Normal 0.3-0.8 [facility] Comment on above: Performed By: #### C BC ####[facility] Iksixylofy7[address] [place] [id number]. Andrade Alvarado Monocytes/100 WBC (Bld) 11.2 % Normal 1.7-12.0 [facility] Comment on above: Performed By: #### C BC ####[facility] Ahzqrivwhf4741 [place] [id number]. Andrade Alvarado NEUT # 1.6 103/ul Normal 1.4-6.5 [facility] Comment on above: Performed By: #### C BC ####[facility] Xhciejkkkr23[address] [place] [address]Dr. Andrade Alvarado Neutrophils/100 WBC (Bld) 36.8 % Critically low 43.0-75.0 [facility] Comment on above: Performed By: #### C BC ####[facility] Kqzlifualc3584 [place] [phone]. Andrade Alvarado Platelet mean volume (Bld) [Entitic vol] 9.9 fL Normal 9.5-13.5 [facility] Comment on above: Performed By: #### C BC ####[facility] Gzhypftcdu11[address] [place] [id number]. Andrade Alvarado PLT 213 103/ul Normal 150-450 [facility] Comment on above: Performed By: #### C BC ####[facility] Qfkomfrtmb3085 [place] [phone]. Andrade Alvarado RBC 3.86 106/ul Critically low 4.20-5.40 [facility] Comment on above: Performed By: #### C BC ####[facility] Sxbenpupml4578 [place] [phone]. Andrade Alvarado WBC 4.4 103/ul Normal 4.0-11.0 [facility] Comment on above: Performed By: #### C BC ####[facility] Pfxsxqpoke4614 [place] [address]Dr. Andrade Alvarado PROF 14(COMP METB)on 022 Albumin [Mass/Vol] 4.2 g/dL Normal 3.4-5.0 [facility] Comment on above: Performed By: #### C MP #### [facility] [address] [place] [address] [address] Andrade Alvarado Albumin/Globulin [Mass ratio] 1.3 {ratio} Normal [facility] Comment on above: Performed By: #### C MP #### [facility] [address] [place] [address] [address] Andrade Alvarado ALP [Catalytic activity/Vol] 61 U/L Normal 46-116 [facility] Comment on above: Performed By: #### C MP #### [facility] [address] [place] [address] [address] Andrade Alvarado ALT [Catalytic activity/Vol] 23 U/L Normal 14-59 [facility] Comment on above: Performed By: #### C MP #### [facility] [address] [place] [address] [address] Andrade Alvarado Anion gap [Moles/Vol] 15.5 mmol/L Normal [facility] Comment on above: Performed By: #### C MP #### [facility] [address] [place] [address] Dr. Andrade Alvarado AST [Catalytic activity/Vol] 20 U/L Normal 15-37 [facility] Comment on above: Performed By: #### C MP #### [facility] [address] [place] [address] Dr. Andrade Alvarado Bilirubin [Mass/Vol] 0.5 mg/dL Normal 0.2-1.0 [facility] Comment on above: Performed By: #### C MP #### [facility] [address] [place] [address] [address] Andrade Alvarado Calcium [Mass/Vol] 9.1 mg/dL Normal 8.5-10.1 [facility] Comment on above: Performed By: #### C MP #### [facility] [address] [place] [address] [address] Andrade Alvarado Chloride [Moles/Vol] 106 mmol/L Normal 98-107 [facility] Comment on above: Performed By: #### C MP #### [facility] [address] [place] [address] [address] Andrade Alvarado CO2 [Moles/Vol] 25.6 mmol/L Normal 21.0-32.0 [facility] Comment on above: Performed By: #### C MP #### [facility] [address] [place] [address] Dr. Andrade Alvarado Creatinine [Mass/Vol] 0.97 mg/dL Normal 0.55-1.02 [facility] Comment on above: Performed By: #### C MP #### [facility] [address] [place] [address] Dr. Andrade Alvarado EGFR-AF KENYAN >60 Normal >=60 [facility] Comment on above: Performed By: #### C MP #### [facility] [address] [place] [address] Dr. Andrade Alvarado EGFR-NON AF KENYAN 58 mL/min/1.73m2 Critically low >=60 [facility] Comment on above: Performed By: #### C MP #### [facility] [address] [place] [address] Dr. Andrade Alvarado Globulin (S) [Mass/Vol] 3.2 g/dL Normal T [facility] Comment on above: Performed By: #### C MP #### [facility] [address] [place] [address] Dr. Andrade Alvarado Glucose [Mass/Vol] 91 mg/dL Normal 74-106 [facility] Comment on above: Performed By: #### C MP #### [facility] [address] [place] [address] Dr. Andrade Alvarado Potassium [Moles/Vol] 4.1 mmol/L Normal 3.5-5.1 [facility] Comment on above: Performed By: #### C MP #### [facility] [address] [place] [address] Dr. Andrade Alvarado Protein [Mass/Vol] 7.4 g/dL Normal 6.4-8.2 [facility] Comment on above: Performed By: #### C MP #### [facility] [address] [place] [address] Dr. Andrade Alvarado Sodium [Moles/Vol] 143 mmol/L Normal 136-145 [facility] Comment on above: Performed By: #### C MP #### [facility] [address] [place] [address] Dr. Andrade Alvarado Urea nitrogen [Mass/Vol] 18.0 mg/dL Normal 7.0-18.0 [facility] Comment on above: Performed By: #### C MP #### [facility] [address] [place] [address] Dr. Andrade Alvarado Urea nitrogen/Creatinine [Mass ratio] 18.6 mg/mg Normal [facility] Comment on above: Performed By: #### C MP #### [facility] [address] [place] [address] Dr. Andrade Alvarado SED RATE [facility] 2021 SED RATE 15 mm/hr Normal <=30 [facility] Comment on above: Performed By: #### S EDR #### [facility] [address] [place] [address] Dr. Andrade Alvarado KNEE LEFT 3 [facility] 04-25-2020 KNEE LEFT 3 [facility] Department of Radiology [address] [place] [id number] Patient Name: RADHA ZAIDI : 1960 [...] visible. Electronically signed: Eliezer Cam. Transcribed by: [email or web address], User Resident: Electronically Signed by: ELIEZER CAM @ 04/25/2020 11:44 AM Normal [facility] Comment on above: Order Comment: Evalu ate TIBIA FIBULA LEFTon 03-27-20 20 TIBIA FIBULA LEFT [facility] Department of Radiology [address] [place] [id number] Patient Name: RADHA ZAIDI : 1960 [...] healing Electronically signed: Crissy Dubon. Transcribed by: [id number], User Resident: Electronically Signed by: CRISSY DUBON @ 03/27/2020 09:11 AM Normal [facility] Comment on above: Order Comment: Evalu ate Operative Reporton 0 Operative Report MR#: [id number] [facility] Pt. Name: Radha Zaidi Room #: 0C [...] were bluntly retracted. We then used a [place] as well as a hemostat to debride [...] Paniagua MD Date Trans: 03/13/2020 02:26 A/bryson YBARRA_JN:[id number] cc: John Ashby D.O. [address] [place] [id number] Normal [facility] KNEE LEFT 1 OR 2 VWSon 03-12 KNEE LEFT 1 OR 2 VWS [facility] Department of Radiology [address] [place] [address] Patient Name: RADHA ZAIDI : [...] fracture. Electronically signed: Rahul James. Transcribed by: [email or web address], User Resident: Electronically Signed by: RAHUL JAMES @ 03/12/2020 03:20 PM Normal [facility] Comment on above: Order Comment: Evalu ate POC GLUCOSE LABon 03-12-2020 Glucose [Mass/Vol] 103 mg/dL High 70-100 [facility] Comment on above: Performed By: #### 8 5499 ####[facility] [place] [address], [facility] *MRSA/MSSA DNA NASALon 03-08 *MRSA/MSSA DNA NASAL Clinical Report: (D ) Specimen: NASAL SWAB Collected: 03/08/2020 14:02 Status: Final Last Updated: 03/09/2020 09:30 MSSA DNA (Final) Negative MRSA DNA (Final) Negative Normal [facility] Comment on above: Performed By: #### 3 1595 ####[facility].[address] *SARS-CoV-2 COVID-19on 03-08 [id number] Not Detected Normal Not Detected [facility] Comment on above: Order Comment: The A ptima SARS-CoV-2 assay is a nucleic acid amplification test intended for the qualitative detection of RNA from SARS-CoV-2 isolated and purified from nasopharyngeal (LOG DECK TENDER),oropharyngeal (OP), nasal swab, sputum, and bronchoalveolar lavage (BAL) specimens from patients with signs and symptoms of infection who are suspected of COVID-19. Results are for the identification of SARS-CoV-2 RNA. The SARS-CoV-2 RNA is generally detectable during the acute phase of infection. The Aptima SARS-CoV-2 Assay on the Clew [employer] Clew Fusion system is intended for use by laboratory personnel specifically instructed and trained in the operation of the [place] and Cle[employer] Fusion system. The Aptima SARS-CoV-2 assay is [...] information. Performed By: #### 3 1792 #### [facility] [address] APTTon 03-08-2020 aPTT Coag (Bld) [Time] 26.9 s Normal 25.0-35.0 [facility] Comment on above: Result Comment: ALL RESULTS [...] THIS PURPOSE. Performed By: #### 5 6101, 89064 ####[facility] [place] [address], [facility] BASIC METABOLIC PANELon 08-08 19-2019 Calcium [Mass/Vol] 9.7 mg/dL Normal 8.6-10.3 [facility] Comment on above: Performed By: #### 0 0071 #### [facility] [address] [facility] [place] [address], [facility] Chloride [Moles/Vol] 103 mmol/L Normal 98-107 [facility] Comment on above: Performed By: #### 0 0071 #### [facility] [address] [facility] [place] [address], [facility] CO2 [Moles/Vol] 31 mmol/L Normal 21-31 [facility] Comment on above: Performed By: #### 0 0071 #### [facility] [address] [facility] [place] [address], [facility] Creatinine [Mass/Vol] 0.87 mg/dL Normal 0.60-1.20 [facility] Comment on above: Performed By: #### 0 0071 #### [facility] [address] [place] [address], [facility] GFR/1.73 sq M predicted among blacks MDRD (S/P/Bld) [Vol rate/Area] mL/min/{1.73_m2} Normal >60 [facility] Comment on above: Performed By: #### 0 0071 #### [facility] [address] [place] [address], [facility] GFR/1.73 sq M predicted among non-blacks MDRD (S/P/Bld) [Vol rate/Area] mL/min/{1.73_m2} Normal >60 [facility] Comment on above: Performed By: #### 0 0071 #### [facility] [address] [facility]. [address] Glucose [Mass/Vol] 106 mg/dL High 70-100 [facility] Comment on above: Performed By: #### 0 0071 #### [facility] [address] [facility]. [address] Potassium [Moles/Vol] 4.3 mmol/L Normal 3.5-5.1 [facility] Comment on above: Performed By: #### 0 0071 #### [facility] [address] [facility]. [address] Sodium [Moles/Vol] 141 mmol/L Normal 136-145 [facility] Comment on above: Performed By: #### 0 0071 #### [facility] [address] [facility]. [address] Urea nitrogen [Mass/Vol] 14 mg/dL Normal 7-25 [facility] Comment on above: Performed By: #### 0 0071 #### [facility] [address] [facility]. [address] CBC W/DIFFon 03-08-2020 ABS BASOPHILS 0.1 10*3/uL Normal 0.0-0.2 [facility] Comment on above: Performed By: #### 5 3 ####[facility] ABS IMM GRANS 0.0 10*3/uL Normal 0.0-0.2 [facility] Comment on above: Performed By: #### 5 3 ####[facility] ABS NEUTROPHILS 3.4 10*3/uL Normal 1.6-7.6 [facility] Comment on above: Performed By: #### 5 0103 ####[facility] [place] [address], [facility] Basophils/100 WBC (Bld) 0.8 % Normal 0.0-1.0 T emerita [facility] Comment on above: Performed By: #### 5 0103 ####[facility] [place] [address], [facility] Eosinophils (Bld) [#/Vol] 0.7 10*3/uL High 0.0-0.5 [facility] Comment on above: Performed By: #### 5 0103 ####[facility] [place] [address], [facility] Eosinophils/100 WBC (Bld) 9.5 % High 0.0-6.0 [facility] Comment on above: Performed By: #### 5 0103 ####[facility] [facility].[address] Erythrocyte distribution width (RBC) [Ratio] 13.6 % Normal 11.5-15.0 [facility] Comment on above: Performed By: #### 5 0103 ####[facility] [facility].[address] Hematocrit (Bld) [Volume fraction] 42.5 % Normal 36.0-45.0 [facility] Comment on above: Performed By: #### 5 3 ####[facility] [facility].[address] Hemoglobin (Bld) [Mass/Vol] 13.7 g/dL Normal 12.0-15.0 [facility] Comment on above: Performed By: #### 5 3 ####[facility] [place] [address], [facility] IMMATURE GRANS 0.3 % Normal 0.0-1.0 [facility] Comment on above: Performed By: #### 5 0103 ####[facility] [facility].[address] Lymphocytes (Bld) [#/Vol] 2.7 10*3/uL Normal 1.2-4.0 [facility] Comment on above: Performed By: #### 5 3 ####[facility] [facility].[address] Lymphocytes/100 WBC (Bld) 35.1 % Normal 20.0-45.0 [facility] Comment on above: Performed By: #### 3 ####[address] MCH (RBC) [Entitic mass] 31.2 pg Normal 27.0-33.0 [facility] Comment on above: Performed By: #### 3 ####[facility] [facility].[address] MCHC (RBC) [Mass/Vol] 32.2 g/dL Normal 32.0-35.0 [facility] Comment on above: Performed By: #### 5 3 ####[facility] [facility].[address] MCV (RBC) [Entitic vol] 96.8 fL Normal 82.0-98.0 [facility] Comment on above: Performed By: #### 3 ####[facility] [facility].[address] Monocytes (Bld) [#/Vol] 0.8 10*3/uL Normal 0.1-1.0 [facility] Comment on above: Performed By: #### 102 ####[facility] [place] [address], [facility] MONOS 9.8 % Normal 5.0-12.0 [facility] Comment on above: Performed By: #### 5 0103 ####[facility] Neutrophils/100 WBC (Bld) 44.5 % Normal 40.0-72.0 [facility] Comment on above: Performed By: #### 5 0103 ####[facility] Nucleated RBC/100 WBC (Bld) [Ratio] 0 % Normal 0-0 [facility] Comment on above: Performed By: #### 5 0103 ####[address] PLAT CNT 230 10*3/uL Normal 150-400 [facility] Comment on above: Performed By: #### 5 0103 ####[facility] RBC (Bld) [#/Vol] 4.39 10*6/uL Normal 3.80-5.00 [facility] Comment on above: Performed By: #### 5 0103 ####[facility] WBC (Bld) [#/Vol] 7.72 10*3/uL Normal 4.00-10.60 [facility] Comment on above: Performed By: #### 5 0103 ####[facility] [place] [address] PROTHROMBIN TIMEon 0 INR Coag (PPP) [Relative time] 0.99 {INR} Normal 0.91-1.16 [facility] Comment on above: Result Comment: ACCC P RECOMMENDED INR FOR WARFARIN THERAPY ------- CONDITION INR PROPHYLAXIS OF VENOUS THROMBOSIS 2-3 (HIGH-RISK SURGERY) TREATMENT OF VENOUS THROMBOSIS 2-3 TREATMENT OF PULMONARY EMBOLISM 2-3 PREVENTION OF SYSTEMIC EMBOLISM: 2-3 ACUTE MYOCARDIAL INFARCTION TISSUE HEART VALVES VALVULAR HEART DISEASE ATRIAL FIBRILLATION RECURRENT SYSTEMIC EMBOLISM MECHANICAL HEART VALVE 2.5-3.5 FROM: ORAL ANTICOAGULANTS. MECHANISM OF ACTION, CLINICAL EFFECTIVENESS, AND OPTIMAL THERAPEUTIC RANGE. CHEST 1995;108:231S-246S. Performed By: #### 5 6101, 71854 #### [facility] [address] [facility]. [address] PT Coag (PPP) [Time] 13.1 s Normal 12.3-14.8 [facility] Comment on above: Result Comment: ALL RESULTS MUST BE INTERPRETED WITH RESPECT TO BLOOD DRAWING ARTIFACT OR DILUTION ERROR OF ANTICOAGULANT AT THE TIME OF SAMPLING. Performed By: #### 5 6101, 74446 #### [facility] [address] [facility]. [address] ALBUMIN BLOODon 02-04-2020 Albumin [Mass/Vol] 4.5 g/dL Normal 3.5-5.7 [facility] Comment on above: Performed By: #### 3 0728, 57757, 24427, 91000, 98098 #### [facility] [address] BASIC METABOLIC PANELon 01-09 Calcium [Mass/Vol] 9.5 mg/dL Normal 8.6-10.3 [facility] Comment on above: Performed By: #### 3 0728, 93202, 01994, 16844, 02838 #### [facility] [address] Chloride [Moles/Vol] 105 mmol/L Normal 98-107 [facility] Comment on above: Performed By: #### 3 0728, 10221, 81805, 13021, 94307 #### [facility] [address] [place] [address], [place] CO2 [Moles/Vol] 27 mmol/L Normal 21-31 [facility] Comment on above: Performed By: #### 3 0728, 04707, 18555, 60603, 97151 #### [facility] [address] [place] [address], [place] Creatinine [Mass/Vol] 0.81 mg/dL Normal 0.60-1.20 [facility] Comment on above: Performed By: #### 3 0728, 29125, 70725, 73886, 37024 #### [facility] [address] [place] [address], [place] GFR/1.73 sq M predicted among blacks MDRD (S/P/Bld) [Vol rate/Area] mL/min/{1.73_m2} Normal >60 [facility] Comment on above: Performed By: #### 3 0728, 27569, 79474, 62910, 98788 #### [facility] [address] [place] [address], [place] GFR/1.73 sq M predicted among non-blacks MDRD (S/P/Bld) [Vol rate/Area] mL/min/{1.73_m2} Normal >60 [facility] Comment on above: Performed By: #### 3 0728, 78609, 83446, 91204, 25939 #### [facility] [address] [place] [address], [place] Glucose [Mass/Vol] 115 mg/dL High 70-100 [facility] Comment on above: Performed By: #### 3 0728, 75890, 40538, 11436, 66678 #### [facility] [address] [place] [address], [place] Potassium [Moles/Vol] 3.9 mmol/L Normal 3.5-5.1 [facility] Comment on above: Performed By: #### 3 0728, 20617, 22728, 62721, 03636 #### [facility] [address] [place] [address], [facility] Sodium [Moles/Vol] 140 mmol/L Normal 136-145 [facility] Comment on above: Performed By: #### 3 0728, 41117, 39845, 37254, 95832 #### [facility] [address] [facility] [place] [address], [facility] Urea nitrogen [Mass/Vol] 20 mg/dL Normal 7-25 [facility] Comment on above: Performed By: #### 3 0728, 26601, 37814, 65340, 88766 #### [facility] [address] [facility]. [address] PREALBUMINon 02-04-2020 Prealbumin [Mass/Vol] 24.0 mg/dL Normal 17.0-34.0 [facility] Comment on above: Performed By: #### 3 0728, 40136, 06919, 45067, 38546 #### [facility] [address] [facility] [place] [address], [facility] TIBIA FIBULA LEFTon 02-04-20 20 TIBIA FIBULA LEFT [facility] Department of Radiology [address] [place] [id number] Patient Name: RADHA ZAIDI : 1960 [...] indicated. Electronically signed: Eliezer Randolph. Transcribed by: [email or web address], User Resident: Electronically Signed by: ELIEZER RANDOLPH @ 02/04/2020 10:34 AM Normal [facility] TRANSFERRINon 02-04-2020 Transferrin [Mass/Vol] 270 mg/dL Normal 203-362 [facility] Comment on above: Performed By: #### 3 0728, 03395, 69278, 19883, 40043 #### [facility] [address] [place] [address], [facility] VITAMIN D 25-HYDROXYon 02-03 VITAMIN D 25-OH 38.5 ng/mL Normal 30.0-80.0 [facility] Comment on above: Result Comment: >80. 0 Toxicity possible Performed By: #### 3 0728, 48162, 39826, 39380, 00579 #### [facility] [address] [facility]. [address] FLUORO FOR SURGICAL PROCEDUR ESon 10-20-2017 FLUORO FOR SURGICAL PROCEDURES Exam: FLUORO FOR SURGICAL PROCEDURESHistory: ACDF Fusion Findings: Fluoroscopy time was 70 seconds A total of 19 fluoroscopic images were obtained by Dr. Cheng during the anterior cervical discectomy in the lower cervical spine.IMPRESSION: Impression: Fluoroscopic assistance provided for operative guidance.Interpreted by:DIANA Lealigned by:Eugene Cancino MD10/20/17inal result Normal [facility] Basic Metabolic Panelon Anion gap 15 mmol/L Critically high 7-13 [facility] Calcium 9.6 mg/dL Normal 8.6-10.2 [facility] Chloride 102 mmol/L Normal 98-107 [facility] CO2 23 mmol/L Normal 22-29 [facility] Creatinine 0.54 mg/dL Normal 0.50-0.90 [facility] eGFR (black) mL/min/{1.73_m2} Normal >60 [facility] Comment on above: Result Comment: >60 mL/min/1.73m2 EGFR, calc. for ages 18 and older using theMDRD formula (not corrected for weight), is valid for stablerenal function. eGFR (MDRD) mL/min/{1.73_m2} Normal >60 [facility] Comment on above: Result Comment: >60 mL/min/1.73m2 EGFR, calc. for ages 18 and older using theMDRD formula (not corrected for weight), is valid for stablerenal function. Glucose mass conc 97 mg/dL Normal 74-109 [facility] Potassium molar conc 4.8 mmol/L Normal 3.5-5.1 [facility] Sodium 140 mmol/L Normal 132-144 [facility] Urea nitrogen 14 mg/dL Normal 6-20 [facility] CBC With Platelet No Differe ntialon 10-13-2017 Erythrocyte distribution width Auto Ratio (RBC) 13.3 % Normal 11.5-14.5 [facility] Erythrocytes (RBC) 4.96 10*6/uL Normal 4.20-5.40 [facility] Hematocrit (HCT) 47.1 % Critically high 37.0-47.0 [facility] Hemoglobin mass conc (Bld) 16.2 g/dL Critically high 12.0-16.0 [facility] MCH 32.7 pg Critically high 27.0-31.3 [facility] MCHC mass conc (RBC) 34.4 % Normal 33.0-37.0 [facility] MCV 95.0 fL Normal 82.0-100.0 [facility] Platelets 223 10*3/uL Normal 130-400 [facility] WBC (Leukocytes) 6.2 10*3/uL Normal 4.8-10.8 [facility] Culture, MRSA Screenon 10-13 Culture, MRSA Screen O RDERED BY: VITO STALLWORTH: Nares Nose COLLECTED: 10/13/17 13:18[facility]IBIOTICS AT [facility].: RECEIVED : 10/13/17 13:18Culture, MRSA Screen FINAL 10/14/17 13:59 No MRSA isolated Normal [facility] Partial Thromboplastin Timeo n 10-13-2017 aPTT 22.9 s Normal 21.6-35.4 [facility] Comment on above: Result Comment: Hepa rin Therapeutic Range: 38.8 - 54.6 seconds. Prothrombin Timeon 8 INR Coag RelTime (PPP) 1.0 {INR} Normal [facility] Comment on above: Result Comment: [...] Coag time (PPP) 10.0 s Normal 8.1-13.7 [facility] Type and Screen Capture 3 sc rn cellon 10-13-2017 Bilirubin (total) PATIENT: DYAN HERNANDES LOC: [facility] BILL# : [id number] : 1960 SEX: FORDERED BY: BASIM CHENG ORDERED : 10/13/2017 12:41 COLLECTED: 10/13/2017 13:24ORDER : [id number] RECEIVED : 10/13/2017 13:24 -----TEST NAME RESULT UNITS RANGES ABN [place] STABORH Capture A POS FAntibody 3 Cell Scrn Captu NEG F Normal [facility] Urinalysis, reflex to cultur gabbie 10-13-2017 Bilirubin Ql (U) Negative Normal Negative [facility] Urine Reflexed to Culture Not Indicated Normal [facility] Urine, clarity Clear Normal Clear [facility] Urine, color Yellow Normal [place] [facility] Urine, glucose presence Negative Normal Negative [facility] Urine, hemoglobin presence Negative Normal Negative [facility] Urine, ketones presence Negative Normal Negative [facility] Urine, leukocyte esterase presence Negative Normal Negative [facility] Urine, nitrite presence Negative Normal Negative [facility] Urine, pH 5.5 [pH] Normal 5.0-9.0 [facility] Urine, protein presence Negative Normal Negative [facility] Urine, specific gravity 1.018 Normal 1.005-1.03 [facility] Urine, urobilinogen 0.2 {Rajwinder'U}/dL Normal < 2.0 [facility] Vital Signs Date Time Vital Sign Value Performing Clinician Facility 03-06-2025 [id number] Body height 165.1 cm John Ball DO Work Phone: [facility] 03-06-2025 09:22-0400 Body mass index (BMI) [Ratio] 20.5 kg/m2 John Ball DO Work Phone: [facility] 03-06-2025 09:22-0400 Body weight 55.84 kg John Ball DO Work Phone: [facility] 03-06-2025 09:22-0400 Diastolic blood pressure 84 mm[Hg] John Ball DO Work Phone: [facility] 03-06-2025 09:22-0400 Heart rate 80 /min John Ball DO Work Phone: [facility] 03-06-2025 09:22-0400 Respiratory rate 12 /min John Ball DO Work Phone: [facility] 03-06-2025 09:22-0400 Systolic blood pressure 149 mm[Hg] John Ball DO Work Phone: [facility] 11-06-2024 [id number] Body height 165.1 cm John Ball DO Work Phone: [facility] 11-06-2024 14:11-0400 Body mass index (BMI) [Ratio] 22.1 kg/m2 John Ball DO Work Phone: [facility] 11-06-2024 14:11-0400 Body weight 60.44 kg John Ball DO Work Phone: [facility] 10-04-2024 14:49-0400 Body height 162.6 cm Jordan Brown DO Work Phone: [facility] 10-04-2024 14:49-0400 Body mass index (BMI) [Ratio] 28.15 kg/m2 Jordan Brown DO Work Phone: [facility] 10-04-2024 14:49-0400 Body weight 74.39 kg Jordan Brown DO Work Phone: [facility] 09-25-2024 10:34-0400 Body height 165.1 cm [facility] 09-25-2024 10:34-0400 Body mass index (BMI) [Ratio] 22.1 kg/m2 [facility] 09-25-2024 10:34-0400 Body weight 60.44 kg [facility] 09-25-2024 10:34-0400 Diastolic blood pressure 86 mm[Hg] [facility] 09-25-2024 10:34-0400 Heart rate 72 /min [facility] 09-25-2024 10:34-0400 Respiratory rate 16 /min [facility] 09-25-2024 10:34-0400 SaO2% (BldA) [Mass fraction] 97 % [facility] 09-25-2024 10:34-0400 Systolic blood pressure 137 mm[Hg] [facility] 09-18-2024 10:17-0400 Body height 162.6 cm Jordan Yuan [employer] Work Phone: [facility] 09-18-2024 10:17-0400 Body mass index (BMI) [Ratio] 28.15 kg/m2 Jordan Yuan [employer] Work Phone: [facility] 09-18-2024 10:17-0400 Body weight 74.39 kg Jordan Yuan [employer] Work Phone: [facility] 08-29-2024 15:44-0500 Body height 165.1 cm [facility] 08-29-2024 15:44-0500 Body mass index (BMI) [Ratio] 22 kg/m2 [facility] 08-29-2024 15:44-0500 Body weight 60.04 kg [facility] 08-29-2024 15:44-0500 Diastolic blood pressure 54 mm[Hg] [facility] 08-29-2024 15:44-0500 Heart rate 57 /min [facility] 08-29-2024 15:44-0500 Respiratory rate 12 /min [facility] 08-29-2024 15:44-0500 Systolic blood pressure 136 mm[Hg] [facility] 07-17-2024 15:06-0500 Body height 162.6 cm Jordan Yuan DO Work Phone: [facility] 07-17-2024 15:06-0500 Body mass index (BMI) [Ratio] 28.15 kg/m2 Jordan Brown DO Work Phone: [facility] 07-17-2024 15:06-0500 Body weight 74.39 kg Jordan Brown DO Work Phone: [facility] 06-05-2024 14:20-0500 Body height 162.6 cm Jordan Brown DO Work Phone: [facility] 06-05-2024 14:20-0500 Body mass index (BMI) [Ratio] 28.15 kg/m2 Jordan Brown DO Work Phone: [facility] 06-05-2024 14:20-0500 Body temperature 97.5 [degF] Jordan Brown DO Work Phone: [facility] 06-05-2024 14:20-0500 Body weight 74.39 kg Jordan Yuan DO Work Phone: [facility] 05-08-2024 10:38-0400 Body height 162.6 cm Jordan Yuan DO Work Phone: [facility] 05-08-2024 10:38-0400 Body mass index (BMI) [Ratio] 28.15 kg/m2 Jordan Yuan DO Work Phone: [facility] 05-08-2024 10:38-0400 Body temperature 97.39 [degF] Jordan Brown DO Work Phone: [facility] 05-08-2024 10:38-0400 Body weight 74.39 kg Jordan Yuan DO Work Phone: [facility] 04-27-2024 13:08-0400 Heart rate 80 [...] 04-27-2024 11:15-0400 Body temperature 97.16 [degF] [facility] 04-27-2024 11:15-0400 Diastolic blood pressure 62 mm[Hg] Jordan Yuan [facility] 04-27-2024 11:15-0400 Heart rate 79 /min [facility] 04-27-2024 11:15-0400 Mean blood pressure 81 mm[Hg] [facility] 04-27-2024 11:15-0400 Respiratory rate 20 /min [facility] 04-27-2024 11:15-0400 SaO2% (BldA) [Mass fraction] 100 % [facility] 04-27-2024 11:15-0400 Systolic blood pressure 118 mm[Hg] [facility] 04-27-2024 11:05-0400 Mean blood pressure 91 mm[Hg] Jordan [facility] 04-27-2024 11:05-0400 Respiratory rate 16 /min Jordan [facility] 04-27-2024 10:50-0400 Mean blood pressure 88 mm[Hg] [facility] 04-27-2024 10:50-0400 Respiratory rate 9 /min [facility] 04-27-2024 10:10-0400 Body temperature 97.16 [degF] [facility] 04-27-2024 10:05-0400 Respiratory rate 12 /min [facility] 04-27-2024 06:23-0400 Mean blood pressure 82 mm[Hg] Jordan Yuan [facility] 04-27-2024 06:22-0400 Body temperature 97.7 [degF] Jordan Yuan [facility] 04-17-2024 15:14-0400 Body height 165.1 cm [facility] 04-17-2024 15:14-0400 Body mass index (BMI) [Ratio] 23.1 kg/m2 [facility] 04-17-2024 15:14-0400 Body weight 63.16 kg [facility] 04-17-2024 15:14-0400 Diastolic blood pressure 84 mm[Hg] [facility] 04-17-2024 15:14-0400 Heart rate 84 /min [facility] 04-17-2024 15:14-0400 Respiratory rate 12 /min [facility] 04-17-2024 15:14-0400 Systolic blood pressure 147 mm[Hg] [facility] 03-27-2024 16:24-0400 Body height 165.1 cm [facility] 03-27-2024 16:24-0400 Body mass index (BMI) [Ratio] 23.9 kg/m2 [facility] 03-27-2024 16:24-0400 Body weight 65.31 kg [facility] 03-27-2024 16:24-0400 Diastolic blood pressure 76 mm[Hg] [facility] 03-27-2024 16:24-0400 Heart rate 87 /min [facility] 03-27-2024 16:24-0400 Respiratory rate 12 /min [facility] 03-27-2024 16:24-0400 Systolic blood pressure 126 mm[Hg] [facility] 03-19-2024 12:28-0400 Diastolic blood pressure 71 mm[Hg] Jordan Yaun [facility] 03-19-2024 12:28-0400 Systolic [...] [facility] 02-29-2024 09:29-0400 Body height 165.1 cm [facility] 02-29-2024 09:29-0400 Body mass index (BMI) [Ratio] 24.1 kg/m2 [facility] 02-29-2024 09:29-0400 Body weight 65.82 kg [facility] 02-29-2024 09:29-0400 Diastolic blood pressure 81 mm[Hg] [facility] 02-29-2024 09:29-0400 Heart rate 74 /min [facility] 02-29-2024 09:29-0400 Respiratory rate 12 /min [facility] 02-29-2024 09:29-0400 Systolic blood pressure 129 mm[Hg] [facility] 12-28-2023 15:31-0400 Body height 165.1 cm [facility] 12-28-2023 15:31-0400 Body mass index (BMI) [Ratio] 25.7 kg/m2 [facility] 12-28-2023 15:31-0400 Body weight 70.08 kg [facility] 12-28-2023 15:31-0400 Diastolic blood pressure 75 mm[Hg] [facility] 12-28-2023 15:31-0400 Heart rate 92 /min [facility] 12-28-2023 15:31-0400 Respiratory rate 12 /min [facility] 12-28-2023 15:31-0400 Systolic blood pressure 112 mm[Hg] [facility] 11-15-2023 15:42-0400 Body height 162.6 cm [employer] Work Phone: [facility] [employer] 11-15-2023 15:42-0400 Body mass index (BMI) [Ratio] 28.15 kg/m2 [employer] Phone: [facility] [employer] 11-15-2023 15:42-0400 Body weight 74.39 kg [employer] Phone: [facility] [employer] 09-28-2023 15:16-0400 Body height 165.1 cm [facility] 09-28-2023 15:16-0400 Body mass index (BMI) [Ratio] 27.8 kg/m2 [facility] 09-28-2023 15:16-0400 Body weight 75.92 kg [facility] 09-28-2023 15:16-0400 Diastolic blood pressure 68 mm[Hg] [facility] 09-28-2023 15:16-0400 Heart rate 80 /min [facility] 09-28-2023 15:16-0400 Respiratory rate 12 /min [facility] 09-28-2023 15:16-0400 Systolic blood pressure 130 mm[Hg] [facility] 09-05-2023 21:48-0500 Body height 166.37 cm John [employer] Other [facility] Other 09-05-2023 16:33-0500 Body height 165.1 cm [facility] 09-05-2023 16:33-0500 Body mass index (BMI) [Ratio] 28.5 kg/m2 [facility] 09-05-2023 16:33-0500 Body weight 77.79 kg [facility] 09-05-2023 16:33-0500 Diastolic blood pressure 69 mm[Hg] [facility] 09-05-2023 16:33-0500 Heart rate 97 /min [facility] 09-05-2023 16:33-0500 Systolic blood pressure 115 mm[Hg] [facility] 08-18-2023 15:40-0500 Body height 162.6 cm Jordan Jaco [employer] Work Phone: [facility] [employer] 08-18-2023 15:40-0500 Body mass index (BMI) [Ratio] 28.15 kg/m2 Jordan Jaco [employer] Work Phone: [facility] [employer] 08-18-2023 15:40-0500 Body temperature 97.11 [degF] Jordan Jaco [employer] Work Phone: [facility] [employer] 08-18-2023 15:40-0500 Body weight 74.39 kg Jordan Jaco Sol[employer] Work Phone: [facility] [employer] 08-17-2023 15:00-0500 Body height 166.37 cm John Ball Other [employer] [facility] Other 08-17-2023 15:00-0500 Body mass index (BMI) [Ratio] 28.12 kg/m2 John Ball Other [employer] Other 08-17-2023 15:00-0500 Body weight 77.84 kg John Ball Other [employer] [facility] Other 08-17-2023 15:00-0500 Diastolic blood pressure 79 mm[Hg] John Ball Other [employer] Other 08-17-2023 15:00-0500 Respiratory rate 12 /min John Ball Other [employer] Other 08-17-2023 15:00-0500 Systolic blood pressure 126 mm[Hg] John Ball Other [employer] Other 04-07-2023 14:00-0400 Body temperature 97.52 [degF] [employer] [facility] 04-07-2023 14:00-0400 Diastolic blood pressure 63 mm[Hg] [employer] [facility] 04-07-2023 14:00-0400 Heart rate 88 /min [employer] [facility] 04-07-2023 14:00-0400 Mean blood pressure 76 mm[Hg] [employer] [facility] 04-07-2023 14:00-0400 SaO2% (BldA) [Mass fraction] 94 % [employer] [facility] 04-07-2023 14:00-0400 Systolic blood pressure 101 mm[Hg] [employer] [facility] 04-07-2023 08:47-0400 Diastolic blood pressure 75 mm[Hg] [employer] [facility] 04-07-2023 08:47-0400 Systolic blood pressure 125 mm[Hg] [employer] [facility] 04-07-2023 07:45-0400 Blood Pressure Location [employer] [facility] 04-07-2023 07:45-0400 Body temperature 97.88 [degF] [employer] [facility] 04-07-2023 07:45-0400 Diastolic blood pressure 75 mm[Hg] Jordan Yuan [facility] 04-07-2023 07:45-0400 Heart [...] 04-06-2023 22:20-0400 Heart rate 74 /min Jordan Brown [facility] 04-06-2023 22:20-0400 Mean blood pressure 78 mm[Hg] Jordan Brown [facility] 04-06-2023 22:20-0400 Respiratory rate 16 /min Jordan Brown [facility] 04-06-2023 22:20-0400 SaO2% (BldA) [Mass fraction] 93 % Jordan Brown [facility] 04-06-2023 20:10-0400 Heart rate 65 /min Jordan Brown [facility] 04-06-2023 20:01-0400 Body temperature 97.34 [degF] Jordan Brown [facility] 04-06-2023 20:00-0400 Mean blood pressure 86 mm[Hg] Jordan Brown [facility] 04-06-2023 16:17-0400 Mean blood pressure 97 mm[Hg] Jordan Brown [facility] 04-06-2023 16:16-0400 Body temperature 97.52 [degF] Jordan Brown [facility] 04-06-2023 13:49-0400 Mean blood pressure 88 mm[Hg] Jordan Brown [facility] 04-06-2023 12:45-0400 Respiratory rate 13 /min Jordan Brown [facility] 04-06-2023 12:35-0400 Respiratory rate 10 /min Jordan Brown [facility] 04-06-2023 12:20-0400 Respiratory rate 17 /min Jordan Brown [facility] 04-06-2023 11:37-0400 Body temperature 96.98 [degF] Jordan Yuan [facility] 04-06-2023 06:39-0400 Heart [...] 03-24-2023 14:52-0400 Heart rate 68 /min [employer] [facility] 03-24-2023 14:52-0400 SaO2% (BldA) [Mass fraction] 99 % [employer] [facility] 03-24-2023 14:52-0400 Diastolic blood pressure 75 mm[Hg] Jordan Brown [facility] 03-24-2023 14:52-0400 Mean blood pressure 93 mm[Hg] Jordan Brown [facility] 03-24-2023 14:52-0400 Systolic blood pressure 128 mm[Hg] Jordan Brown [facility] 03-24-2023 14:51-0400 Respiratory rate 16 /min [employer] [facility] 01-10-2023 15:00-0400 Body height 166.37 cm John Ball Other [employer] Other 01-10-2023 15:00-0400 Body mass index (BMI) [Ratio] 27.04 kg/m2 John Ball Other [employer] Other 01-10-2023 15:00-0400 Body weight 74.84 kg John Ball Other [employer] Other 01-10-2023 15:00-0400 Diastolic blood pressure 86 mm[Hg] John Ball Other [employer] Other 01-10-2023 15:00-0400 Respiratory rate 12 /min John Ball Other [employer] Other 01-10-2023 15:00-0400 Systolic blood pressure 124 mm[Hg] John Ball Other [employer] Other 12-09-2022 09:00-0400 Body height 166.37 cm John Ball Other [employer] Other 12-09-2022 09:00-0400 Body mass index (BMI) [Ratio] 27.33 kg/m2 John Ball Other [employer] Other 12-09-2022 09:00-0400 Body weight 75.66 kg John Ball Other [employer] Other 12-09-2022 09:00-0400 Diastolic blood pressure 71 mm[Hg] John Ball Other [employer] Other 12-09-2022 09:00-0400 Respiratory rate 12 /min John Ball Other [employer] Other 12-09-2022 09:00-0400 Systolic blood pressure 111 mm[Hg] John Ball Other [employer] Other 11-09-2022 15:00-0400 Body height 166.37 cm John Ball Other [employer] Other 11-09-2022 15:00-0400 Body mass index (BMI) [Ratio] 27.36 kg/m2 John Ball Other [employer] Other 11-09-2022 15:00-0400 Body weight 75.75 kg John Ball Other [employer] Other 11-09-2022 15:00-0400 Diastolic blood pressure 80 mm[Hg] John Ball Other [employer] Other 11-09-2022 15:00-0400 Respiratory rate 12 /min John Ball Other [employer] Other 11-09-2022 15:00-0400 Systolic blood pressure 135 mm[Hg] John Ball Other [employer] Other 07-26-2022 16:30-0500 Body height 166.37 cm John Ball Other [employer] Other 07-26-2022 16:30-0500 Body mass index (BMI) [Ratio] 26.28 kg/m2 John Ball Other [employer] Other 07-26-2022 16:30-0500 Body weight 72.76 kg John Ball Other [employer] Other 07-26-2022 16:30-0500 Diastolic blood pressure 78 mm[Hg] John Ball Other [employer] Other 07-26-2022 16:30-0500 Respiratory rate 12 /min John Ball Other [facility] Other 07-26-2022 16:30-0500 Systolic blood pressure 122 mm[Hg] John Ashby Other [facility] Other Encounters Encounter Date Encounter Type Care Provider Facility Start: 03-14-2025 ambulatory John Ashby DO Work Phone: [facility] Work Phone: Start: 03-14-2025 Non-patient / Non-visit John arauz DO -[facility] Work Phone: Start: 03-08-2025 Non-patient / Non-visit John arauz DO -[facility] Work Phone: Start: 03-06-2025 End: 03-06-2025 ambulatory John Ashby DO Work Phone: [facility] Work Phone: Start: 03-06-2025 End: 03-06-2025 Patient encounter procedure John Ashby DO -[facility] Work Phone: Start: 03-04-2025 End: 03-04-2025 [facility]ulatory [facility] Start: 12-10-2024 End: 12-10-2024 ambulatory [facility] Start: 11-19-2024 End: 11-19-2024 ambulatory Nicki Plunkett MD Facility: [facility] Start: 11-06-2024 End: 11-06-2024 ambulatory John Ashby DO Work Phone: [facility] Work Phone: Start: 11-06-2024 End: 11-06-2024 Patient encounter procedure John Ashby DO [facility] Work Phone: Start: 11-06-2024 End: 11-06-2024 Patient encounter procedure John Ashby DO Work Phone: [facility] Start: 11-06-2024 End: 11-06-2024 ambulatory John Ashby DO Work Phone: [facility] Work Phone: Start: 10-29-2024 End: 10-29-2024 ambulatory Nicki Mayberryitis Facility:[facility] Start: 10-08-2024 End: 10-08-2024 ambulatory Nicki Plunkett MD Facility:[facility] Start: 10-04-2024 End: 10-04-2024 Patient encounter procedure [...] Start: 09-28-2024 End: 09-29-2024 ambulatory Jordan Yuan Facility:[facility] Start: 09-25-2024 End: 09-25-2024 ambulatory [facility] Work Phone: Start: 09-25-2024 End: 09-25-2024 Patient encounter procedure [facility] Work Phone: Start: 09-18-2024 End: 09-18-2024 Patient encounter procedure Jordan Yuan DO Work Phone: [facility] Comment on above: S/P arthroscopy of l eft shoulder (Primary Dx) Start: 09-18-2024 End: 09-18-2024 ambulatory JORDAN YUAN Not Available Start: 08-31-2024 Non-patient / Non-visit [facility] Work Phone: Start: 08-29-2024 End: 08-29-[address] [facility] Work Phone: Start: 08-29-2024 End: 08-29-2024 Encounter for general adult medical examination without abnormal findings [facility] Start: 08-29-2024 End: 08-29-2024 Patient encounter procedure [facility] Work Phone: Start: 08-27-2024 Patient encounter status [facility] Start: 07-17-2024 End: 07-17-2024 Patient encounter [...] [facility] Start: 06-21-2024 Non-patient / Non-visit [facility] Work Phone: Start: 06-14-2024 End: 06-14-2024 Patient encounter procedure [facility] Work Phone: Start: 06-05-2024 End: 06-05-2024 ambulatory JORDAN YUAN Not Available Start: 06-05-2024 End: 06-05-2024 Patient encounter procedure Jordan Yuan DO Work Phone: [facility] Comment on above: Status post shoulder surgery (Primary Dx) Start: 05-09-2024 End: 05-09-[address] [facility] Work Phone: Start: 05-09-2024 End: 05-09-2024 Patient encounter procedure [facility] Work Phone: Start: 05-08-2024 End: 05-08-2024 Patient encounter procedure Jordan Yuan DO Work Phone: [facility] Comment on above: Status post shoulder surgery (Primary Dx) Start: 05-08-2024 End: 05-08-2024 ambulatory JORDAN Sue KWABENA Not Available Start: 05-08-2024 End: 05-08-2024 ambulatory JORDAN A KWABENA Not Available Start: 04-27-2024 End: 04-27-2024 Admission to same day surgery center Jordan Rogers Kwabena [facility] Start: 04-27-2024 End: 04-27-2024 ambulatory DO Jordan Sue Kwabena Facility:[facility] Start: 04-17-2024 End: 04-17-2024 ambulatory [facility] Work Phone: Start: 04-17-2024 End: 04-17-2024 Patient encounter procedure [facility] Work Phone: Start: 04-10-2024 End: 04-10-2024 ambulatory [facility] Work Phone: Start: 04-10-2024 End: 04-10-2024 Patient encounter procedure [facility] Work Phone: Start: 03-30-2024 End: 03-30-2024 ambulatory [facility] Work Phone: Start: 03-30-2024 End: 03-30-2024 Patient encounter procedure [facility] Work Phone: Start: 03-27-2024 End: 03-27-2024 ambulatory [facility] Work Phone: Start: 03-27-2024 End: 03-27-2024 Patient encounter procedure [facility] Work Phone: Start: 03-25-2024 Patient encounter status [facility] Start: 03-19-2024 End: 03-19-2024 ambulatory Jordan Yuan Facility:[facility] Start: 03-19-2024 End: 03-19-2024 Patient encounter procedure Jordan Yuan [facility] Start: 02-29-2024 End: 02-29-[address] [facility] Work Phone: Start: 02-29-2024 End: 02-29-2024 Patient encounter procedure [facility] Work Phone: Start: 02-23-2024 End: 02-23-2024 ambulatory JORDAN YUAN Not Available Start: 02-14-2024 Non-patient / Non-visit [facility] Work Phone: Start: 02-02-2024 Non-patient / Non-visit [facility] Work Phone: Start: 12-28-2023 End: 12-28-[address] [facility] Work Phone: Start: 12-28-2023 End: 12-28-2023 Patient encounter procedure [facility] Work Phone: Start: 11-15-2023 End: 11-15-2023 Patient encounter procedure Jordan Yuan DO Work Phone: [facility] Comment on above: Status post shoulder surgery (Primary Dx) Start: 11-15-2023 End: 11-15-2023 ambulatory JORDAN YUAN Not Available Start: 09-28-2023 End: 09-28-[address] [facility] Work Phone: Start: 09-28-2023 End: 09-28-2023 Patient encounter procedure [facility] Work Phone: Start: 09-06-2023 End: 09-06-2023 ambulatory Jordan Yuan Facility:[facility] Start: 09-06-2023 End: 09-06-2023 Patient encounter procedure Jordan Yuan [facility] Start: 09-05-2023 Non-patient / Non-visit [facility] Work Phone: Start: 09-05-2023 End: 09-05-2023 ambulatory John Ashby Other [employer] Other Start: 09-05-2023 Telephone encounter John Ashby [facility] Start: 09-02-2023 Non-patient / Non-visit [facility] Work Phone: Start: 08-30-2023 Non-patient / Non-visit [facility] Work Phone: Start: 08-18-2023 End: 08-18-2023 Patient encounter procedure Jordan Yuan DO Work Phone: [facility] Comment on above: Right shoulder pain, unspecified chronicity (Primary Dx) Start: 08-18-2023 Chart abstracting Jordan do DO Work Phone: [facility] Start: 08-17-2023 End: 08-17-2023 ambulatory John Ashby Other [employer] Other Start: 08-17-2023 Encounter for genera l adult medical examination without abnormal findings John Ashby [facility] Start: 08-17-2023 Periodic preventive med est patient 40-64yrs John Ashby [facility] Start: 06-28-2023 End: 06-28-2023 ambulatory John Ashby Other [employer] Other Start: 06-28-2023 Office outpatient vi sit 15 minutes John Ashby [facility] Start: 05-06-2023 End: 05-06-2023 ambulatory John Ashby Other [employer] Other Start: 05-06-2023 Telephone encounter John Ashyb [facility] Start: 04-26-2023 End: 04-26-2023 ambulatory John Ashby Other [employer] Other Start: 04-26-2023 Telephone encounter John SIMON [facility] Start: 04-06-2023 End: 04-07-2023 Admission to same day surgery center Jordan Yuan [facility] Start: 04-06-2023 End: 04-07-2023 ambulatory Jordan Yuan Facility:[facility] Start: 03-31-2023 End: 03-31-2023 ambulatory John Ashby Other [employer] Other Start: 03-31-2023 Telephone encounter John SIMON [facility] Start: 03-26-2023 End: 03-26-2023 ambulatory John Ashby Other [employer] Other Start: 03-26-2023 Telephone encounter John SIMON [facility] Start: 03-24-2023 End: 03-24-2023 ambulatory Jordan Yuan Facility:[facility] Start: 03-24-2023 End: 03-24-2023 Patient encounter procedure Jordan Yuan [facility] Start: 03-21-2023 End: 03-21-2023 ambulatory John Ashby Other [employer] Other Start: 03-21-2023 Telephone encounter John SIMON [facility] Start: 01-12-2023 End: 01-12-2023 ambulatory John Ashby Other [employer] Other Start: 01-12-2023 Telephone encounter John Ashby [facility] Start: 01-10-2023 End: 01-10-2023 ambulatory John Ashby Other [employer] Other Start: 01-10-2023 Office outpatient vi sit 15 minutes John Ball [facility] Start: 12-14-2022 End: 12-14-2022 ambulatory John Ball Other [employer] Other Start: 12-14-2022 Telephone encounter John Ball [facility] Start: 12-10-2022 End: 12-10-2022 ambulatory John [facility] Other [employer] Other Start: 12-10-2022 Telephone encounter John Ball [facility] Start: 12-09-2022 End: 12-09-2022 ambulatory John Ashby Other [employer] Other Start: 12-09-2022 Office outpatient vi sit 15 minutes John Ball [facility] Start: 11-09-2022 End: 11-09-2022 ambulatory John Ball Other [employer] Other Start: 11-09-2022 Office outpatient vi sit 15 minutes John Ball [facility] Start: 10-13-2022 ambulatory NARENDRANATH LAKSHMIPATHY . Facility:[facility] Start: 10-07-2022 End: 10-08-2022 ambulatory NARENDRANATH LAKSHMIPATHY . Facility:[facility] Start: 09-22-2022 End: 09-22-2022 ambulatory John [facility] Other [employer] Other Start: 09-22-2022 Telephone encounter John Ball [facility] Start: 09-16-2022 End: 09-17-[address] JOHN ASHBY Facility:[facility] Start: 08-14-2022 End: 08-14-2022 ambulatory John [facility] Other [employer] Other Start: 08-14-2022 Telephone encounter John Ball [facility] Start: 07-26-2022 End: 07-26-2022 ambulatory John Ball Other [employer] Other Start: 07-26-2022 Office outpatient vi sit 15 minutes [facility] Start: 07-22-2022 Annual wellness visit John Ashby Other [employer] Other Start: 07-22-2022 Patient encounter procedure John Ashby Other [employer] Other Start: 07-09-2022 End: 07-10-[address] JOHN ASHBY Facility:[facility] Start: 06-21-2022 Adult health examination John Ashby Other [employer] Other Start: 06-21-2022 Gynecological examination normal John Ashby Other [employer] Other Start: 2022 End: 06-09-[address] JOHN ASHBY Facility:[facility] Start: 06-01-2022 End: 06-01-[address] JOHN ASHBY Facility:[facility] Start: 05-24-2022 Encounter for genera l adult medical examination without abnormal findings DR JOHN ASHYB [facility] Start: 05-20-2022 End: 05-21-[address] JOHN [...] End: 03-13-2020 Patient encounter procedure MARYURI ALEXANDER Facility:[facility] Start: 03-05-2020 End: 03-20-2020 Patient encounter procedure MARYURI ALEXANDER Facility:[facility] Start: 10-20-2017 End: 10-21-[address] [facility] Start: 10-13-2017 End: 10-18-2017 Ambulatory BARRY H. [...] 03-12-2020 ANTIONE BONE 20 SQ CM/< JG ELIDIA AVENDANOSINAN Start: 03-12-2020 TREATMENT OF FIBULA FRACTURE [...] BASIM Start: 10-13-2017 MRSA SCREENING CULTURE ONLY BRARY BASIM Start: 10-13-2017 EKG 12-LEAD BARRY BASIM [...] for malign ant neoplasm of breast [facility] Other Screening mammography [facility] Other Plan of Treatment Date Care Activity Detail Author Start: 03-14-2025 Patient referral [facility] Work Phone: Start: 03-11-2025 Influenza vaccination Influenz a Vaccine (Season Ended) [facility] Start: 11-06-2024 Plain X-ray of left shoulder XR shoulder LT min 2V* [facility] Start: 11-06-2024 XR Shoulder - left Views [facility] Start: 10-04-2024 End: 10-04-2024 Patient encounter procedure 10/04/2024 2:45 PM EDT Office Visit [facility] [address] [place] [facility] [place] [address] Jordan Yuan, [address] [place] [address] Arrived SUNITA CHO Comment on above: Arrived Start: 09-18-2024 End: 09-18-2024 Patient encounter procedure 09/18/2024 10:00 AM EDT Office Visit NOMN[facility] [address] [place] [address] [facility] [place] [address] Jordan Yuan DO [address] [place] [address] [place], [place] [id number] [facility] Start: 07-17-2024 End: 07-17-2024 Patient encounter procedure 07/17/2024 2:45 PM EST Office Visit [facility] [address] [place] [address] Jordan Yuan DO [address] [place] [address] Arrived [facility] Comment on above: Arrived Start: 2024 Screening for malign ant neoplasm of colon [facility] Start: 06-05-2024 End: 06-05-2024 Patient encounter procedure 06/05/2024 9:15 AM EST Office Visit [facility] [address] [place] [address] Jordan Yuan DO [address] [place] [address] [facility] Start: 05-08-2024 End: 05-08-2024 Patient encounter procedure 05/08/2024 10:45 AM EDT Office Visit [facility] [address] [place] [address] Jordan Yuan DO [address] [place] [address] [facility] Start: 03-11-2024 Influenza vaccination Influenza Vacc ine (#1) [facility] Start: 10-04-2023 End: 10-04-2023 Patient encounter procedure 10/04/2023 3:45 PM EDT Office Visit [facility] [address] [place] [address] Jordan Yuan DO [address] [place] [address] [facility] Start: 08-18-2023 End: 08-18-2023 Patient encounter procedure 08/18/2023 3:45 PM EST Office Visit [facility] [address] [place] [address] Jordan Yuan, DO [address] [place] [address] [facility] Start: 08-18-2023 End: 08-18-2024 C reactive protein [Mass/volume] in Serum or Plasma C-reactive protein Lab Routine Right shoulder pain, unspecified chronicity Expected: 08/18/2023 (Approximate), Expires: 08/18/2024 [facility] Comment on above: Expected: 08/18/2023 (Approximate), Expires: 08/18/2024 Start: 08-18-2023 End: 08-18-2024 CBC W Auto Differential panel - Blood CBC auto differential Lab Routine Right shoulder pain, unspecified chronicity Expected: 08/18/2023 (Approximate), Expires: 08/18/2024 [facility] Work Phone: Comment on above: Expected: 08/18/2023 (Approximate), Expires: 08/18/2024 Start: 08-18-2023 End: 08-18-2024 Erythrocyte sedimentation rate Sedimentation rate, automated Lab Routine Right shoulder pain, unspecified chronicity Expected: 08/18/2023 (Approximate), Expires: 08/18/2024 [facility] Comment on above: Expected: 08/18/2023 (Approximate), Expires: 08/18/2024 Start: 08-18-2023 End: 08-18-2024 Interleukin-6 Interleukin-6 Lab Routine Right shoulder pain, unspecified chronicity Expected: 08/18/2023 (Approximate), Expires: 08/18/2024 [facility] Comment on above: Expected: 08/18/2023 (Approximate), Expires: 08/18/2024 Start: 2000 Screening for malign ant neoplasm of breast Mammogram [facility] Start: 1990 Screening for malign ant neoplasm of cervix [facility] Start: 1981 Screening for malign ant neoplasm of cervix Pap Smear [facility] Start: 1960 Screening for malign ant neoplasm of colon [facility] Comprehensive metabo lic 2000 panel - Serum or Plasma [facility] Patient referral [facility] Work Phone: Renal function 2000 panel - Serum or Plasma [facility] US [facility] Kidney - [facility] XR Chest 2 Views [facility] Immunizations Immunization Date Immunization Notes Care Provider Fa cility 05-10-2019 influenza virus vaccine, unspecified formulation Jordan Kwabena DO Work Phone: [facility] 03-22-2012 tetanus and diphther ia toxoids, adsorbed, preservative free, for adult use (5 Lf of tetanus toxoid and 2 Lf of diphtheria toxoid) John Ashby Other [facility] Payers Date Payer Category Payer Private Health Insurance [id number] 2024 Medicare (Managed Care) [employer] AARP [id number] 2024 Unknown [id number] 2024 Private Health Insurance 2021 [facility] er 1.2.840.568783.1.13.693.2 .[id number] 2021 Unknown 1.2.840.322873. 1.13.693.2 .7.3.452650.315 2021 Blue Cross Blue Shield [id number] 2.16.840.1.534834.19 2020 Medicare 1.2.840.387854. 1.13.693.2 .7.3.494690.315 2017 Unknown [id number] 1960 Unknown [id number] 2.16.840.1.851721.3.579.2 .647 1960 Unknown [id number] 2.16.840.1.773755.3.579.2 .647 1960 Unknown [id number] 2.16.840.1.171256.3.579.2 .593 1960 Unknown [id number] 2.16.840.1.542796.3.579.2 .593 1960 Unknown [id number] 2.16.840.1.082123.3.579.2 .593 1960 Unknown [id number] 2.16.840.1.322115.3.579.2 .593 1960 Unknown [id number] 2.16.840.1.019139.3.579.2 .593 1960 Unknown [id number] 2.16.840.1.986392.3.579.2 .593 1960 Unknown [id number] 2.16.840.1.787082.3.579.2 .593 1960 Unknown [id number] 2.16.840.1.790691.3.579.2 .593 1960 Unknown [id number] 2.16.840.1.563768.3.579.2 .593 1960 Unknown [id number] 2.16.840.1.444161.3.579.2 .593 1960 Unknown [id number] 2.16.840.1.098782.3.579.2 .593 1960 Unknown [id number] 2.16.840.1.036524.3.579.2 .593 1960 Unknown [id number] 2.16.840.1.618422.3.579.2 .593 1960 Unknown [id number] 2.16.840.1.259476.3.579.2 .593 1960 Unknown [id number] 2.16.840.1.186974.3.579.2 .593 1960 Unknown [id number] 2.16.840.1.233476.3.579.2 .593 1960 Unknown [id number] 2.16.840.1.134151.3.579.2 .593 1960 Unknown [id number] 2.16.840.1.490802.3.579.2 .727 1960 Unknown [id number] 2.16.840.1.343899.3.579.2 .727 1960 Unknown [id number] 2.16.840.1.795073.3.579.2 .727 1960 Unknown [id number] 2.16.840.1.856762.3.579.2 .727 1960 Unknown [id number] 2.16.840.1.668368.3.579.2 .727 1960 Unknown [id number] 2.16.840.1.681539.3.579.2 .1259 1960 Unknown [id number] 2.16.840.1.270760.3.579.2 .1259 1960 Unknown [id number] 2.16.840.1.655484.3.579.2 .1259 1960 Unknown [id number] 2.16.840.1.050487.3.579.2 .1258 1960 Unknown [id number] 2.16.840.1.618114.3.579.2 .9 1960 Unknown [id number] 2.16.840.1.912812.3.579.2 .1258 1960 Unknown [id number] 2.16.840.1.870767.3.579.2 .1258 1960 Unknown [id number] 2.16.840.1.230491.3.579.2 .1258 1960 Unknown [id number] 2.16.840.1.577275.3.579.2 .1258 1960 Unknown [id number] 2.16.840.1.881217.3.579.2 .1258 1960 Unknown [id number] 2.16.840.1.375420.3.579.2 .9 1960 Unknown [id number] 2.16.840.1.428304.3.579.2 .7 1960 Unknown [id number] 2.16.840.1.966847.3.579.2 .727 1960 Unknown [id number] 2.16.840.1.437970.3.579.2 .1960 Unknown [id number] 2.16.840.1.210503.3.579.2 .1960 Unknown [id number] 2.16.840.1.629940.3.579.2 .1960 Unknown [id number] 2.16.840.1.852771.3.579.2 .196 1959 Medicare [id number] 1959 Self-pay 1959 Unknown [id number] 1959 Unknown [id number] Unknown [id number] 2.16.840.1.595530.3.579.2 .531 Social History Date Type Detail Facility Unknown if ever smoked [facility] Other Start: 07-21-2023 End: 10-04-2024 Sex Assigned At [facility] Tobacco smoking status No Smokin g Status Entered [facility] Start: 07-06-2018 End: 05-24-2023 Tobacco smoking status NHIS Ex-smoker [facility] [...] Start: 08-29-2024 End: 11-07-2024 Sex Female (finding) [facility] Medical Equipment Procedure Code Equipment Code [...] Start: 04-06-2023 SHOULDER TOTAL ARTHROPLASTY Kwabena DO, Joradn A 04/06/23 Unknown Shoulder R FDA Start: [...] Yuan DO 04/27/24 Non Biological Shoulder L {[id number]{ [id number] FDA Start: 04-27-2024 Functional Status Date Assessment Result Facility 03-19-2024 Functional Status No [facility] 03-24-2023 Functional Status No [facility] Clinical Notes 05-29-2018 to 03-06-2025 Note Date & Type Note Facility 03-06-2025 Chief complaint+R мария for visit Narrative Itchy w/ no Rash March 06, 2025 9: 17am Referral Order March 14, 2025 9:00pm Reason for Visit Admit Date Chronic kidney disease March 06, 2025 9:17am Heart failure with improved ejection fra ction (HFimpEF) March 06, 2025 9:17am Nonischemic cardiomyopathy March 06, 2025 9:17am Pruritus March 06, 2025 9: 17am [facility] Work Phone: 1(245) 560-366708-27-2025 Evaluation note* Diagnosis Onset Date Resolution Status Admit Date Chronic kidney disease acute Au jordi 2024 9:17am Heart failure with improved ejection fraction (HFimpEF) acute Augu st 2024 9:17am Nonischemic cardiomyopathy acute March 06, 2025 9:17am Pruritus acute March 06, 025 9:17am [facility] Work Phone: 1(273) 642-488706-02-2025 NoteUT Cardiology [facility] Minh Zaidi is a 64 y.o. year old [...] Yes Comment: occasional Drug use: Never DOMINIC Radha presents for follow up. She is a [...] In the past she was admitted to [facility] with pneumonia and empyema, [...] mouth if needed., Disp: , Rfl: HYDROcodone-acetaminophen ([place]) 5-325 mg tablet, TAKE 1 TABLET BY [...] [address] feliz (more content not included)...[facility] History of Present illness Narrative* Jordan Yuan, DO - 10/04/2024 2:45 PM EDT Images from the original note were not included. @ENCDATE@ Radha Levy Dyan is a 64 y.o. female who [...] tablet citalopram (CeleXA) 10 MG tablet HYDROcodone-acetaminophen ([place]) 5-325 MG tablet leflunomide (Arava) 10 MG [...] Results Imaging MRI of the left shoulder [facility] 09/28/2024 report and [...] benefits. She was advised to continue with herrehabilitation exercises if they provide some relief from [...] between anatomic shoulder arthroplasty and reverse shoulder arthroplastyand utilized the saw bones model and/or illustration during the discussion. I provided the patient information from the [employer] web site about this procedure. We will utilize the Tornier shoulder arthroplasty platform and obtain a CT scan of the shoulder to assist with preoperative planning and intraoperative instrumentation. Anticipate greater than 23 hour but less than 72 hour stay in the hospitalafter surgery. We will utilize tranexamic acid preoperative [...] note was created using voice recognition through [employer] artificial [employer]. documented in this encounterBothwell Regional Health CenterTbccclfvxc01-79-7900 History of Present illness Narrative* Jordan Yuan DO - 09/18/2024 10:00 AM EDT Images from the original note were not included. @CARIDADDATE@ Radha Levy Zaidi is a 64 y.o. [...] tablet citalopram (CeleXA) 10 MG tablet HYDROcodone-acetaminophen ([place]) 5-325 MG tablet leflunomide (Arava) 10 MG [...] note was created using voice recognition through [employer]. documented in this encounterBothwell Regional Health CenterStcuuluodq71-16-0664 Evaluation note* Diagnosis Onset Date Resolution Status [...] screening for malignant neoplasm of colon noneactive ua2024 3:15pm Anemia of renal disease acute arch 2024 10:33am Chronic kidney disease, stag e 3b acute September 25, 2024 10:33am Hypertensive nephropathy acute September 25, 2024 10:33am Rheumatoid arthritis acute Adonis 2024 10:33am [facility] Work Phone: 1(961) 638-278602-19-2025 Evaluation note* Diagnosis Onset Date Resolution Status [...] 29, 2 025 3:15pm Wellness examination acute ua2024 3:15pm Encounter for screening for malignant neoplasm of colon noneactive ua2024 3:15pm Anemia of renal disease acute M arch 2024 10:33am Chronic kidney disease, stag e 3b acute September 25, 2024 10:33am Hypertensive nephropathy acute September 25, 2024 10:33am Rheumatoid arthritis acute Adonis h 2024 10:33am Left rotator cuff tear acute Ap 2024 1:35pm Primary osteoarthritis, left shoulder acute November 06, 2024 1:35pm [facility] Work Phone: 1(189) 566-190201-07-2025 History of Present illness Narrative* Jordan Yuan, DO - 07/17/2024 2:45 PM EST Images from the original note were not included. @LORAINE@ Radhacaitlyn Zaidi is a 64 y.o. female who [...] tablet citalopram (CeleXA) 10 MG tablet HYDROcodone-acetaminophen ([place]) 5-325 MG tablet leflunomide (Arava) 10 MG [...] note was created using voice recognition through [employer]. documented in this encounterBothwell Regional Health CenterPmcbaxwltt79-11-9762 Evaluation note* Diagnosis Onset Date Resolution Status [...] 025 3:15pm Wellness examination acute 2024 3:15pm [facility] Work Phone: 1(644) 305-986811-26-2024 History of Present illness Narrative* Jordan Yuan, DO - 06/05/2024 9:15 AM EST Images from the original note were not included. @BLAYNETE@ [employer] Levy Zaidi is a 63 y.o. female [...] tablet citalopram (CeleXA) 10 MG tablet HYDROcodone-acetaminophen ([place]) 5-325 MG tablet TAKE 1 TABLET BY [...] per Dr Estrella SHOULDER SURGERY Left 04/27/2024 [facility] 2000 TOTAL SHOULDER ARTHROPLASTY [...] with debridement Patient will start PT at [place]. [place] protocol for small to medium cuff tears will be utilized. Follow up in 6 weeks. Continue to ice the shoulder and allow sufficient time for rest during the week. There are no diagnoses linked to this encounter. Jordan Yuan D.O. Attestation This note was created using voice recognition through [employer]. * ROSEMARY Hernandez - 06/05/2024 9:15 AM ESTAssociated Order(s): L Inj/Asp: L glenohumeral Post-Procedure Diagnose(s): Status post shoulder surgery L Inj/Asp: L glenohumeral on 06/05/2024 2:26 PM Indications: pain Details: 25 G needle, ultrasound-guided Medications: 2 mL betamethasone acetate-betamethasone sodium phosphate 6 (3-3) MG/ML Consent was given by the patient. documented in this encounterBothwell Regional Health CenterTejpepkxko45-42-4198 History of Present illness Narrative* Jordan Rogers Kwabena, DO - 05/08/2024 10:45 AM EDT Images from the original note were not included. @LORAINE@ Radha Zaidi is a 63 y.o. female [...] tablet citalopram (CeleXA) 10 MG tablet HYDROcodone-acetaminophen ([place]) 5-325 MG tablet TAKE 1 TABLET BY MOUTH 3 TIMES A DAY NEEDED FOR PAIN*MUS LAST 30 DAYS HYDROcodone-acetaminophen ([place]) 5-325 MG tablet 1-2 tablets, Oral, Every [...] for her medication will be sent to [facility] in [place]. Follow-up Return in 4 weeks for follow up. PT will be initiated at that time. Diagnoses and all orders for this visit: Status post shoulder surgery - XR shoulder 2+ views left - HYDROcodone-acetaminophen ([place]) 5-325 MG tablet; Take 1-2 tablets by mouth every 4 (four) hoursif needed (pain) for up to 7 days Jordan Yuan D.O. Attestation This note was created using voice recognition through [employer]. documented in this encounterBothwell Regional Health CenterZahkfmvzcn66-42-8318 Evaluation + Plan note Extracted from: Title:ANES Post-operative Note---General Author: Wm Bajwa MD Date:04/27/24 Plan Transfer/Discharge: Transfer/Discharge Discharge when meets criteria ( To home ). Extracted from: Title:ANES Pre-operative Note 2022 Author:Wm Gunter. 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 Family History: Primary malignant neoplasm of prostate Father Acute myocardial infarction Mother Procedure history: Total shoulder replacement (54069047) on 04/06/2023 at 62 Years. Cervical laminectomy (6680365700). Amputation of finger (695680320). Removal of lung, Partial (18128). Open reduction and internal fixation of fracture Leg (285824593). Foot surgery (0661462791). Lumbar discectomy (223017998). Social History Social & Psychosocial Habits Alcohol [...] Signs (last 24 hrs) Last Charted Temp Bydhqhjz28.5 DegC (APR 27 06:22) Heart Rate Hrlaupioo90 bpm (APR 27 06:23) OFX208 mmHg (APR 27:) DBP70 mmHg (APR 27:) [...] Auto 55.1 % Lymph Auto 20.4 % [place] Auto 19.5 % HI Eos Auto 3.7 % Basophil Auto 1.3 % Neutro Absolute 2.4 E9/L Lymph Absolute 0.9 E9/L LOW [place] Absolute 0.8 E9/L Eos Absolute 0.2 E9/L Basophil Absolute 0.1 E9/L . Plan [place] [employer] Anesthesiologists (ASA) physical status classification: [...] Yuan - After Your Shoulder Arthroscopy (Custom) [place], [place] [facility] AFTER YOUR SHOULDER ARTHROSCOPY [...] your appointment. Jordan Yuan, DO [facility] [address] [place] [address] Reviewed: Follow Up Care 02/23/2024 15:25:37 With:Jordan Yuan Address: [address] [place] [phone]- Business (1) When:05/08/2024 10:45:00 Comments:Call for any problems.Keep scheduled appointmentAppointment has already been scheduled [facility] 10-18-2024 NoteProgress Note-Physician Patient: RADHA ZAIDI Age: 63 years Sex: Female : 1960 Associated Diagnoses: None Author: Wm Bajwa MD Postoperative Information Postoperative disposition: Postoperative disposition: To PACU. Optimetrix number: Optimetrix number [id number]. Anesthetic utilized: General. Regional: Interscalene Block. Health [...] Discharge when meets criteria ( To home ).[facility] ClinicComment on above:Result Comment: Electronically Signed By: Wm Bajwa MD\.br\Date and Time Signed: 04/27/24 10:30 EDT 04-27-2024 NotePatient Education - Text [place], [place] [facility] AFTER YOUR SHOULDER ARTHROSCOPY [...] your appointment. 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 Family History: Primary malignant neoplasm of prostate Father Acute myocardial infarction Mother Procedure history: Total shoulder replacement (09802617) on 04/06/2023 at 62 Years. Cervical laminectomy (3760129101). Amputation of finger (736351128). Removal of lung, Partial (97604). Open reduction and internal fixation of fracture Leg (701080099). Foot surgery (9562175898). Lumbar discectomy (116259048). Social History Social & Psychosocial H (more content not included)...[facility] ClinicComment on above:Result Comment: Electronically Signed By: Garett CHAUHAN, Wm Mistry\.br\Date and Time Signed: 04/27/24 08:55 [id number] History of Present illness Narrative* Jordan Sue Yuan, DO - 11/15/2023 3:45 PM EDT Images from the original note were not included. @LORAINE@ Radha Zaidi is a 63 y.o. female [...] tablet citalopram (CeleXA) 10 MG tablet HYDROcodone-acetaminophen ([place]) 5-325 MG tablet TAKE 1 TABLET BY [...] Jordan Yuan D.O. 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 She points to the anterior aspect of the shoulder as the locationof her discomfort. SUBJECTIVE: MEDICATIONS: Current Outpatient Medications Medication Instructions aspirin 81 MG EC tablet 1 tablet, Oral, Daily buPROPion XL (Wellbutrin XL) 300 MG 24 hr tablet citalopram (CeleXA) 10 MG tablet HYDROcodone-acetaminophen ([place]) 5-325 MG tablet TAKE 1 TABLET BY [...] care. Jordan Yuan D.O. documented in this encounterBothwell Regional Health CenterOqxlzqfdof64-81-4540 Evaluation note* Encounter Date Diagnosis Assessment Notes [...] Symptoms tolerable, continue medical treatment f/u Rheumatology [facility] Other 12-19-2023 Evaluation note* Encounter Date Diagnosis [...] Jun, Immunosuppressed sta tus (ICD-10 - D84.9) [facility] Other 09-28-2023 Evaluation + Plan noteExtracted from: [...] Basic PRE Author:Hill Rai DO Date:04/06/23 Plan [place] [employer] Anesthesiologists (ASA) physical status classification: Class II. Anesthetic Preoperative Plan: Anesthesia General. Regional Interscalene block. [facility]09-28-2023 Hospital Discharge instructions Patient Education 04/07/2023 07:41:33 Iris Yuan - Shoulder Replacement (Custom) [place], [place] [facility] DISCHARGE INSTRUCTIONS: SHOULDER REPLACEMENT [...] persistent vomiting. Jordan Yuan DO [facility] [address] [place] [address] Reviewed: Follow Up Care 03/09/2023 13:56:15 With:Jordan Yuan Address: [address] [place] [address] Business (1) When:04/19/2023 14:15:00 With:JOHN ASHBY Address: [address] [place], [place] [id number] Business (1) When: Unknown [facility] [...] 15 mg, 1 tab(s), Oral, Daily, 0 Refill(s)[facility] ClinicComment on above:Result Comment: Electronically Signed By: Jordan Yuan DO\.br\Date and Time Signed: 04/07/23 07:42 [id number] [facility]09-16-2023 Evaluation note* Encounter Date Diagnosis Assessment Notes Treatment Notes Treatment Clinical Notes Mar, Major depressive disorder, single episode, 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 Monitor BP while taking [employer] [facility] Other 03-30-2023 NoteCONSULTATION PROCEDURE DATE: 10/07/2022 PROCEDURE: [...] at least 80% reduction of pain symptoms.[facility] DaytonVwbuaqal43-05-7831 NoteCONSULTATION CONSULTATION DATE: 10/07/2022 ADDENDUM: On examination of the right shoulder, the patient did have a positive right sided full can test, a positive Neida's test, Apley's test and cross body test. All four positive on examination date 10/07/2022.[facility] DaytonGlqmdibc31-59-6522 NoteCONSULTATION CONSULTATION DATE: 10/07/2022 TO: John Ashby [...] activity modification, use of Zanaflex, Lyrica and [place]. RECOMMENDATIONS: I recommend proceeding with a right [...] right shoulder without contrast and physical therapy.[facility] DaytonTfhogfox11-99-0053 Evaluation note* Encounter Date Diagnosis Assessment Notes Treatment Notes Treatment Clinical Notes Aug, Anemia (ICD-10 - D64.9) [facility] Other 01-16-2023 Evaluation note* Encounter Date Diagnosis [...] Healthy diet, exercise w/o change in treatment [facility] Other [id number] NoteCONSULTATION PROCEDURE DATE: 07/09/2022 PREOPERATIVE DIAGNOSIS: Right [...] will be followed up in the office.[facility] DaytonRwudgbrw50-84-2680 NoteCONSULTATION CONSULTATION DATE: 07/09/2022 HISTORY OF PRESENT [...] possible increase in dose. She also takes [place] 5/325 t.i.d. and Zanaflex 4 mg three [...] three months' time, unless otherwise indicated. [facility] DaytonHiieudeu86-86-4381 NoteCONSULTATION CONSULTATION DATE: 05/20/2022 HISTORY OF PRESENT [...] medications include Celexa, Lyrica 50 mg b.i.d., [place] 5/325 t.i.d. and Zanaflex. Patient is having [...] level of C3-4. We will refill her [place] at 5/325 t.i.d. Supportive home measures were discussed such as heat and a menthol heat rub, as well as vitamin compliance. The patient agrees to move forward with the plan, will be followed up in the clinic thereafter.[facility] [id number] NoteCONSULTATION PROCEDURE DATE: 02/17/2022 PRE AND POSTOPERATIVE [...] will be followed up in the clinic.[facility] [id number] NotePROCEDURE: XR SHOULDER RT 2V or > COMPARISON: None. HISTORY: Pain of right shoulder joint FINDINGS: BONES:No acute fracture or dislocation. Minimal degenerative changes. Cervical fusion hardware SOFT TISSUES:Negative. No visible soft tissue swelling. EFFUSION:None visible. OTHER: Negative. IMPRESSION: No acute abnormality Electronically authenticated by: VANDANA COLLINS Date: 2022-02-16 19:11[facility] [id number] NoteCONSULTATION CONSULTATION DATE: 02/02/2022 CHIEF COMPLAINT: Right [...] aggravates the pain. The patient currently takes [place] 5/325 t.i.d., wellbutrin 150 mg, Lyrica 50 [...] point tenderness along the right bicipital tendon. Network And Threat Support Specialist strength is maintained. IMPRESSION: Current working diagnosis [...] like to proceed. 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 Cold weather and bending bother her as well. Medications include Lyrica 75 mg t.i.d., which she has not been taking for the past two months; Celexa, [place] 5/325 t.i.d., Zanaflex and RINVOQ. She feels that her pain is managed well with her Browns[place], but is concerned about the neuropathic pain [...] in need of a refill for her Brownsville today, which we will give 5/325 t.i.d. [...] in three months' time unless otherwise indicated. [facility] Signed and Approved by: JACQUIE OLIVAS . 11/12/2021 16:27:00[facility]11-19-2018 Evaluation note* Diagnosis Onset Date Resolution Status PSVT (paroxysmal supraventricular tachycardia) acute Heart failure with improved ejection fraction (HFimpEF) acute Nonischemic cardiomyopathy a cute Orthostatic hypotension May 29, 2018 acute Anemia acute Essential hypertension acute ERICH (generalized anxiety disorder) acute Heart failure with improved ejection fraction (HFimpEF) acute Nonischemic cardiomyopathy a cute Preop exam for internal medicine acute PSVT (paroxysmal supraventricular tachycardia) [facility] Work Phone: [phone] Evaluation note* Diagnosis Onset Date Resolution Status Heart failure with improved ejection fraction (HFimpEF) acute Nonischemic cardiomyopathy a cute Orthostatic hypotension May 29, 2018 acute Anemia acute Essential hypertension acute ERICH (generalized anxiety disorder) acute Heart failure with improved ejection fraction (HFimpEF) acute Nonischemic cardiomyopathy a cute Preop exam for internal medicine acute PSVT (paroxysmal supraventricular tachycardia) acute Rheumatoid arthritis acute [facility] Work Phone: Evaluation + Plan note Future Appointments Appointment Date:04/06/2023 09:30:00 AM Scheduled Provider: Location:[facility] Future Appointments Appointment Date:04/06/2024 12:00:00 PM Scheduled Provider: Location:[facility] Appointment Type:[facility]gery FT [facility] Evaluation noteNo [facility] [employer] Other Evaluation note* Diagnosis Right shoulder pain, unspecified chronicity- Primary documented in [facility] encounter [facility] Diagnosis Onset Date Resolution Status Hypertension acute Overweight acute PSVT (paroxysmal supraventricular tachycardia) [facility] Work Phone: Evaluation note* Diagnosis Onset Date Resolution Status Hypertension acute Overweight acute PSVT (paroxysmal supraventricular tachycardia) acute Heart failure with improved ejection fraction (HFimpEF ) acute Nonischemic cardiomyopathy [facility] Work Phone: Evaluation note* Diagnosis Status [...] anemia acute PSVT (paroxysmal supraventricular tachycardia) acute [facility] Work Phone: Evaluation note* Diagnosis Status post shoulder surgery- Primary Other postprocedural status documented in this encounter [facility] Healthcare[facility]* Diagnosis Status post shoulder surgery- Primary Other postprocedural status documented in this encounter [facility] HealthcareEvaluation note* Diagnosis S/P arthroscopy of left shoulder- Primary documented in this encounter [facility] HealthcareEvaluation note* Diagnosis S/P arthroscopy of left shoulder- Primary documented in this encounter [facility] HealthcareEvaluation note* Diagnosis Complete tear of left rotator cuff, unspecified whether traumatic- Primary documented in this encounter [facility] HealthcareEvaluation noteNo assessment information availableChillic[facility] Work Phone: History general Narrative - [...] Surgical History ORIF, proximal fibula Surgical History [facility] 2011 Surgical History Lumbar fusion Surgical History ACDF C4-6 05/30 Hospitalization History See Above PHARMAJET Other History general Narrative - Reported* Type [...] Surgical History ORIF, proximal fibula Surgical History [facility] 2011 Surgical History Lumbar fusion Surgical History ACDF C4-6 05/30 Surgical History Right reverse total shoulder ar throplasty 03/2023 Hospitalization History See Above PHARMAJET Other Hospital course Narrative No data available for this section [facility] instructions No data available for this section [facility] Discharge instructionsAmbulatory Orders* Referral to Allergy/Immunology Location: None Selected [facility] Work Phone: Progress note No data available for this section [facility] HospitalReason for referral (narrative)No reason for referral information availableChillicothe Hospital Work Phone: Summary Purpose Family History [...] 2024 3:15pm Screening mammogram for [facility] 2024 3:15pm Wellness examination August [...] 2024 3:15pm Screening mammogram for breast cancer [facility] 2024 3:15pm Wellness examination August [...] 2024 3:15pm Screening mammogram for breast cancer Veronica boudreaux 2024 3:15pm Wellness examination August 29, 2024 [...] section and content) DATE CREATED AUTHOR [facility]29/2017 [facility] DATE CREATED AUTHOR AUTHOR'S ORGANIZ ATION 05/13/2020 [facility] DATE CREATED AUTHOR AUTHOR'S ORGANIZ ATION 10/15/2022 [facility] DATE CREATED AUTHOR AUTHOR'S ORGANIZ ATION 03/20/2024 [employer] [facility] DATE CREATED AUTHOR AUTHOR'S ORGANIZ ATION 04/29/2024 [facility] DATE CREATED AUTHOR AUTHOR'S ORGANIZ ATION 10/06/2024 [facility] DATE CREATED AUTHOR AUTHOR'S ORGANIZ ATION 11/15/2024 [facility] DATE CREATED AUTHOR AUTHOR'S ORGANIZ ATION 11/21/2024 [employer] [facility] DATE CREATED AUTHOR AUTHOR'S ORGANIZ ATION 12/11/2024 [facility] DATE CREATED AUTHOR AUTHOR'S ORGANIZ ATION 03/09/2025 [facility] REASON FOR VISIT (unrecogniz ed section and [...] December 28, 2023 End: December 28, 2023 Vessel Specialist Relationship Specialty Start Date End Date John Ashby MD [address] [place] [id number] PCP - General Internal Medicine 12/23/22 Vessel Specialist Relationship Specialty Start Date End Date John Ashby MD [address] [place] [id number] PCP - General Internal Medicine 12/23/22 Team [...] Team Status: Inactive Member Role Status Dates Jhon Ashby DO Primary Care Provide r, Attending Provider Active Start: April 10, 2024 End: April 10, 2024 Vessel Specialist Relationship Specialty Start Date End Date John Ashby MD [address] [place] [id number] PCP - General Internal Medicine 12/23/22 Team Status: Inactive Member Role Status Dates John Ashby DO Primary Care Provide r, Attending Provider Active Start: April 17, 2024 End: April 17, 2024 Team Status: Inactive Member Role Status Dates John Ashby DO Primary Care Provide r, Attending Provider Active Start: May 09, 2024 End: May 09, 2024 Vessel Specialist Relationship Specialty Start Date End Date John Ashby MD [address] [place] [facility] [address] PCP - General Internal Medicine 12/23/22 Vessel Specialist Relationship Specialty Start Date End Date John Ashby MD [address] [place] [facility] [address] PCP - General Internal Medicine 12/23/22 Vessel Specialist Relationship Specialty Start Date End Date John Ashby MD [address] [place] [facility] [address] PCP - General Internal Medicine 12/23/22 Vessel Specialist Relationship Specialty Start Date End Date John Ashby MD [address] [place] [facility] [address] PCP - General Internal Medicine 12/23/22 [...] September 25, 2024 End: September 25, 2024 Vessel Specialist Relationship Specialty Start Date End Date John Ashby MD [address] [place] [facility] [address] PCP - General Internal Medicine 12/23/22 Team Status: Active Member Role Status Dates John Ashby DO Primary Care Provider Active Start: November 06, 2024 Ethan Padilla DO Attending Provider Active St art: November 06, 2024 Team Status: Inactive Member Role Status Dates John Ball , DO Primary Care Provider Active Start: November 06, 2024 End: November 06, 2024 Ethan Padilla , DO Attending Provider Active St art: November 06, 2024 End: November 06, 2024 Team Status: Inactive Member Role Status Dates John Ashby DO Primary Care Provider Active Start: March 06, 2025 End: March 06, 2025 John Ashby , DO Attending Provider Active Sta rt: March 06, 2025 End: March 06, 2025 Team Status: Active Member Role Status Dates John Ashby , Primary Care Provider Active Start: March 08, 2025 John Ashby , Attending Provider Active Sta rt: March 08, 2025 Team Status: Active Member Role Status Dates John Ashby DO Primary Care Provider Active Start: March 14, 2025 John Ashby , Attending Provider Active Sta rt: March 14, 2025 Goals (unrecognized section and content) Goals [...] BE BASED ON THE PRIMARY CLINICAL RECORDS. [facility] [employer] provides no warranty or guarantee of the accuracy or completeness of information in this document.
[2025-04-29] MEDS: HYDROMORPHONE HCL 1 MG/ML CARTRIDGE 0.5 MG IVP ×2 (11:32→11:58)
[2025-04-29] MEDS: ETOMIDATE 20 MG/10 ML VIAL 10 MG IVP (12:23)
[2025-04-29] MEDS: HYDROMORPHONE HCL 1 MG/ML CARTRIDGE IVP (12:49)
[2025-04-29] MEDS: MIDAZOLAM HCL 2 MG/2 ML VIAL IV (13:31)
== END 2025-04-29 14:28 | disposition home or self-care (01) ==
PROVIDERS: Emergency Provider Emergency Medicine; PCP Internal Medicine
DX: S43.004A Unspecified dislocation of right shoulder joint, initial encounter (principal); X58.XXXA Exposure to other specified factors, initial encounter; Z96.611 Presence of right artificial shoulder joint
CPT/HCPCS: 23650; 73030; 96374; 96375; 96376; 99152; 99285; J1171; J2250; J2405

== ENCOUNTER 2025-05-30 14:43 | Outpatient (OUT) | payer MEDICARE, SELFPAY ==
--- OUTSIDE RECORDS SUMMARY | 2025-05-27 23:59 | XMS_ITS | Continuity of Care Document ---
Author Organization [facility] Address Unknown Care Team Providers Care Sales And Service Technician Name Role Phone RAZIA ASHBY Primary Care Physician [phone] Kaet Scruggs Unavailable Unavailable Cesia Artis Unavailable Unavailable Encounter _[facility] [id number] Date(s): 05/27/25 - 05/27/25 [facility] [address] [place] [address]- Discharge Disposition: Home (Routine DC) Attending Physician: Jordan Barron DO Admitting Physician: Jordan Barron DO Referring Physician: Jordan Barron DO Encounter Type: Outpatient Allergies, Adverse Reactions, Alerts No Known Allergies Medications Arava 10 mg oral tablet 10 mg = 1 tab(s), Oral, Daily, Refills(s) 0, Arthritis Start Date: 03/24/23 Status: Ordered Medication Dispense Status: Completed Total Allowed Fills: 1 Fills Dispensed: 0 CeleBREX 100 mg Cap 100 mg = 1 cap(s), Oral, BID, PRN for pain, # 60 cap(s), Refills(s) 0, Pharmacy: [facility]/pharmacy #[id number], 165, cm, 03/19/24 13:53:00 EDT, Height/Length Dosing, 65, kg, 03/19/24 13:53:00 EDT, Weight Dosing Start Date: 04/27/24 Status: Ordered Medication Dispense Status: Completed Quantity: 60.0 Unit: cap(s) Total Allowed Fills: 1 Fills Dispensed: 0 citalopram 10 mg Tab 10 mg = 1 tab(s), Oral, Daily, Refills(s) 0, Depression Start Date: 03/19/24 Status: Ordered Medication Dispense Status: Completed Total Allowed Fills: 1 Fills Dispensed: 0 Colace 100 mg Cap 100 mg = 1 cap(s), Oral, BID, PRN for constipation, # 20 cap(s), Refills(s) 0, Pharmacy: [facility]/pharmacy #[id number], 165, cm, 03/19/24 13:53:00 EDT, Height/Length Dosing, 65, kg, 03/19/24 13:53:00 EDT, Weight Dosing Start Date: 04/27/24 Status: Ordered Medication Dispense Status: Completed Quantity: 20.0 Unit: cap(s) Total Allowed Fills: 1 Fills Dispensed: 0 Lyrica 150 mg Cap 150 mg = 1 cap(s), Oral, BID, # 60 cap(s), Refills(s) 0, Pain Start Date: 03/24/23 Status: Ordered Medication Dispense Status: Completed Quantity: 60.0 Unit: cap(s) Total Allowed Fills: 1 Fills Dispensed: 0 metoprolol 100 mg ER Tab 100 mg = 1 tab(s), Oral, Bedtime, Refills(s) 0, High blood pressure Start Date: 04/06/23 Status: Ordered Medication Dispense Status: Completed Total Allowed Fills: 1 Fills Dispensed: 0 Percocet 5 mg-325 mg oral tablet See Instructions, 40 tab(s), Refill(s) 0, 1-2 tab(s) Oral q4hr, [facility]/pharmacy #[id number], 165, cm, 03/19/24 13:53:00 EDT, Height/Length Dosing, 65, kg, 03/19/24 13:53:00 EDT, Weight Dosing Start Date: 04/27/24 Status: Ordered Medication Dispense Status: Completed Quantity: 40.0 Unit: tab(s) Total Allowed Fills: 1 Fills Dispensed: 0 Percocet 5 mg-325 mg oral tablet See Instructions, 30 tab(s), Refill(s) 0, 1-2 tab(s) Oral q6hr, [facility]/pharmacy #[id number], 165, cm, 03/19/24 13:53:00 EDT, Height/Length Dosing, 65, kg, 03/19/24 13:53:00 EDT, Weight Dosing Start Date: 05/02/24 Status: Ordered Medication Dispense Status: Completed Quantity: 30.0 Unit: tab(s) Total Allowed Fills: 1 Fills Dispensed: 0 Rinvoq 15 mg oral tablet, extended release 15 mg = 1 tab(s), Oral, Daily, Refills(s) 0, Arthritis Start Date: 03/24/23 Status: Ordered Medication Dispense Status: Completed Total Allowed Fills: 1 Fills Dispensed: 0 Wellbutrin XL 300 mg/24 hours Tab-ER 300 mg = 1 tab(s), Oral, BID, Refills(s) 0, Depression Start Date: 03/24/23 Status: Ordered Medication Dispense Status: Completed Total Allowed Fills: 1 Fills Dispensed: 0 Zanaflex 4 mg Tab See Instructions, 1 tab(s) Oral in AM 3 tabs at bedtime, Refills(s) 0 Start Date: 03/24/23 Status: Ordered Medication Dispense Status: Completed Total Allowed Fills: 1 Fills Dispensed: 0 Problem List ConditionConfirmationCourseEffective DatesStatusHealth StatusInformant BradycardiaConfirmedActiveStatus post partial removal of lungConfirmedActiveHigh blood pressureConfirmedActiveRheumatoid arteritisConfirmedActive Procedures ProcedureDateRelated DiagnosisBody SiteStatusArthroscopy of LEFT shoulder with bicep /18/24CompletedTotal shoulder replacement04/06/23Completed Amputation of fingerCompletedCervical laminectomyCompletedFoot surgeryCompleted Lumbar discectomyCompletedOpen reduction and internal fixation of fracture Leg CompletedRemoval of lung, PartialCompleted Social History Social History TypeResponseBirth SexFemaleSex RepresentationFemale (finding) Implantable Device List ProcedureProviderProcedure DateDevice TypeSiteSHOULDER ARTHROSCOPY W/ POSSIBLE REPAIRBrowJordan do DO A1Non BiologicalShoulder LDevice IdentifierSerial NumberLot or Batch NumberManufacturing DateExpiration DateDistinct Identification CodeMRI SafetyImplantable StatusAssigning [id number] [id number]/30/26UnknownMR Oyc[id number] Gwjodbz32/31/28UnknownUnknownActiveUnknown ProcedureProviderProcedure DateDevice TypeSiteSHOULDER ARTHROSCOPY W/ POSSIBLE REPAIRBrown DO, Jordan A1Non BiologicalShoulder LDevice IdentifierSerial NumberLot or Batch NumberManufacturing DateExpiration DateDistinct Identification CodeMRI SafetyImplantable StatusAssigning [id number] [id number]/30/27UnknownMR SafeActiveGS1 ProcedureProviderProcedure DateDevice TypeSiteSHOULDER ARTHROSCOPY W/ POSSIBLE REPAIRBrown DO, Jordan A1UnknownShoulder LDevice IdentifierSerial Number Lot or Batch NumberManufacturing DateExpiration DateDistinct Identification Code MRI SafetyImplantable StatusAssigning [id number] Unknown12/09/27UnknownMR SafeActiveGS1 ProcedureProviderProcedure DateDevice TypeSiteSHOULDER ARTHROSCOPY W/ POSSIBLE REPAIRBrown DO, Jordan A1UnknownShoulder LDevice IdentifierSerial Number Lot or Batch NumberManufacturing DateExpiration DateDistinct Identification Code MRI SafetyImplantable StatusAssigning [id number] Unknown10/08/28UnknownMR SafeActiveGS1 ProcedureProviderProcedure DateDevice TypeSiteSHOULDER TOTAL ARTHROPLASTYBrown DO, Jordan 04/06/23UnknownShoulder RDevice IdentifierSerial NumberLot or Batch NumberManufacturing DateExpiration DateDistinct Identification CodeMRI Safety Implantable StatusAssigning JcpjbssaeXpyzrxaUesphoo26.85709Wlybrxr9/31/28Unknown UnknownActiveUnknown ProcedureProviderProcedure DateDevice TypeSiteSHOULDER TOTAL ARTHROPLASTYBrown DO, Jordan 04/06/23UnknownSst. louis va medical centerlder RDevice IdentifierSerial NumberLot or Batch NumberManufacturing DateExpiration DateDistinct Identification CodeMRI Safety Implantable StatusAssigning MmlsnsothWlnjmpuUdzsxtu63.24310Dwqvshr8/Unknown UnknownActiveUnknown ProcedureProviderProcedure DateDevice TypeSiteSHOULDER TOTAL ARTHROPLASTYBrown DO, Jordan 04/06/23UnknownShoulder RDevice IdentifierSerial NumberLot or Batch NumberManufacturing DateExpiration DateDistinct Identification CodeMRI Safety Implantable StatusAssigning WdpdpnxsrXhyernnXopfqef49.81354Epbjmxz8/Unknown UnknownActiveUnknown ProcedureProviderProcedure DateDevice TypeSiteSHOULDER TOTAL ARTHROPLASTYBrown DO, Jordan 04/06/23UnknownShoulder RDevice IdentifierSerial NumberLot or Batch NumberManufacturing DateExpiration DateDistinct Identification CodeMRI Safety Implantable StatusAssigning VqqiazmopQmrworvWwgsxqk94.53806Shdkbxm6/Unknown UnknownActiveUnknown ProcedureProviderProcedure DateDevice TypeSiteSHOULDER TOTAL ARTHROPLASTYBrown DO, Jordan 04/06/23UnknownShoulder RDevice IdentifierSerial NumberLot or Batch NumberManufacturing DateExpiration DateDistinct Identification CodeMRI Safety Implantable StatusAssigning [id number]/Unknown UnknownActiveUnknown ProcedureProviderProcedure DateDevice TypeSiteSHOULDER TOTAL ARTHROPLASTYBrown DO, Jordan 04/06/23UnknownShoulder RDevice IdentifierSerial NumberLot or Batch NumberManufacturing DateExpiration DateDistinct Identification CodeMRI Safety Implantable StatusAssigning [id number]/Unknown UnknownActiveUnknown ProcedureProviderProcedure DateDevice TypeSiteSHOULDER TOTAL ARTHROPLASTYBrown DO, Jordan 04/06/23UnknownShoulder RDevice IdentifierSerial NumberLot or Batch NumberManufacturing DateExpiration DateDistinct Identification CodeMRI Safety Implantable StatusAssigning [id number] UnknownActiveUnknown ProcedureProviderProcedure DateDevice TypeSiteSHOULDER TOTAL ARTHROPLASTYBrown DO, Jordan A9UnknownShoulder RDevice IdentifierSerial NumberLot or Batch NumberManufacturing DateExpiration DateDistinct Identification CodeMRI Safety Implantable StatusAssigning [id number] UnknownUnknownActiveUnknown ProcedureProviderProcedure DateDevice TypeSiteSHOULDER TOTAL ARTHROPLASTYBrown DO, Jordan 04/06/23UnknownShoulder RDevice IdentifierSerial NumberLot or Batch NumberManufacturing DateExpiration DateDistinct Identification CodeMRI Safety Implantable StatusAssigning [id number] UnknownUnknownActiveUnknown Patient Care team information Care Team Personnel Name: RAZIA ASHBY DO Position: FT Physician Member Role: Primary Care Physician Address: [address] [place] [address] Telecom: Name: Cesia Artis Position: [employer] Staff Search Member Role: Other Name: Kate Scruggs Position: [employer] Staff Search Member Role: Other Care Team Related Persons Name: LIGIA ZAIDI Name: LIGIA ZAIDI Name: LIGAI ZAIDI Name: LIGIA ZAIDI Insurance Providers Guarantor name: ALEXANDER ZAIDI Health Plan Information #: 1 Payer: MEDICARE Payer Identifier: [id number] Member Number: [id number] Group Number: [id number] Subscriber Identifier: [id number] Relationship to Subscriber: self Coverage Type: MEDICARE Coverage Verification Date: 25 Telecom: Address: [facility] [id number] [place] [id number]
--- OUTSIDE RECORDS SUMMARY | 2025-05-30 14:48 | XMS_ITS | Clinical Summary ---
Author Organization [facility] Address [address] [place] [address] Care Team Providers Care Finance Vice President Name Role Phone John Mcdaniels DO Primary Care Provider [phone] Allergies Active AllergyReactionsCriticalityNoted DateCommentsCephalexinGI intolerance 06/30/2018 Medications MedicationSigDispense QuantityRefillsLast FilledStart DateEnd DateStatus acetaminophen (Tylenol) 325 mg tablet Take 650 mg by mouth.10/21/2017Active aspirin 81 mg EC tablet Take 1 tablet by mouth in the morning.Active buPROPion XL (Wellbutrin XL) 300 mg 24 hr tablet Take 300 mg by mouth.03/24/2023ctive citalopram (CeleXA) 20 mg tablet TAKE 1 TABLET BY MOUTH EVERY DAY AT BEDTIME *BEGIN AFTER 30 DAYS*06/20/2017 Active docusate sodium (Colace) 100 mg capsule Take 100 mg by mouth if needed.04/06/2023ctive HYDROcodone-acetaminophen ([place]) 5-325 mg tablet TAKE 1 TABLET BY MOUTH 3 TIMES A DAY NEEDED FOR PAIN*MUS LAST 30 DAYS 06/30/2023ctive leflunomide (Arava) 10 mg tablet 10 mg.06/07/2017Active methylPREDNISolone (Medrol Dospak) 4 mg tablets 10/22/2023ctive omeprazole (PriLOSEC) [address] capsule 40 mg.09/27/2023ctive pregabalin (Lyrica) 150 mg capsule 10/25/2023ctive tiZANidine (Zanaflex) 4 mg tablet tizanidine 4 mg wojaqj2304/30/2017Active Rinvoq 15 mg tablet extended release 24 hr 10/21/2023ctive valACYclovir (Valtrex) 1 gram tablet 11/03/2023ctive lisinopril 5 mg tablet Indications:Chronic systolic congestive heart failure (CMS/HCC)Take 1 tablet (5 mg) by mouth in the morning. 90 tablet ctive metoprolol succinate XL (Toprol-XL) 100 mg 24 hr tablet Indications:Heart failure with improved ejection fraction (HFimpEF) (CMS/HCC) Take 1 tablet (100 mg) by mouth in the morning. Do not crush or chew. 90 tablet ctive Active Problems ProblemNoted DateDiagnosed JiysNiikkqg75/02/2025High blood oqvgydpq02/02/2025 Rheumatoid zpyxvxfaz91/02/2025Status post partial removal of lung12/10/2024 Esteeiyqdcw15/02/2025hronic systolic congestive heart zhmjcyc0211/04/2023 Nonischemic yrraxvzvkiffgb55/26/2024Mixed vzhneyhdybtffy40/26/2024losed fracture of upper end of nanufx1104/25/2020Loculated vjayurl1805/16/2018Cervical stenosis of spinal canal10/21/2017Foraminal stenosis of cervical region 10/13/2017Degenerative joint disease of hand12/15/2012cute pericarditis 11/05/2011Essential vohictfvwknb00/27/2012Rheumatoid qhqkemcdk87/12/2012 Family History Medical HistoryRelationNameCommentsCoronary artery diseaseMotherRelationName StatusCommentsFatherAliveMotherDeceased Social History Tobacco UseTypesPacks/DayYears UsedDateSmoking Tobacco: FormerCigarettesPassive Smoke Exposure: PastSmokeless Tobacco: Never Tobacco Cessation:Counseling Given: Not Answered Alcohol UseStandard Drinks/WeekCommentsYes0 (1 standard drink = 0.6 oz pure alcohol)occasionalUT Safety & EnvironmentAnswerDate RecordedFear of Current or Ex-PartnerNot on file09/01/2023Emotionally AbusedNot on file09/01/2023hysically AbusedNot on file09/01/2023Sexually AbusedNot on file09/01/2023hysically or Sexually AbusedNot on file09/01/2023CommentsUnknownSex and Gender InformationValueDate RecordedSex Assigned at BirthNot on fileLegal SexFemale 01/06/2022 10:21 PM EDTGender IdentityNot on fileSexual OrientationNot on file Last Filed Vital Signs Vital SignReadingTime TakenCommentsBlood Zbnrujlr598/7106 4:23 PM EDT Rynee4275 4:23 PM KXHJwmqquhcftt03.3 ??C (97.3 ??F)06/25/2019 9:18 AM ESTRespiratory Hdnx118611/04/2023 3:25 PM EDTOxygen Mraiznccts32%12/10/2024 4:23 PM EDTInhaled Oxygen Concentration--Janpxp34.5 kg (129 lb)12/10/2024 4:23 PM EDT Rhdclo596.1 cm (5' 5 )12/10/2024 4:23 PM EDTBody Mass Index21.47012/10/2024 4:23 PM EDT Plan of Treatment Health MaintenanceDue DateLast DoneCommentsCT Drmxpkcvmlhb1960Colonoscopy 1960FIT1960FOBT1960Medicare Annual Wellness (AWV)1960 Medicare Initial Physical (IPPE)1960 9081Bfawsgzlwnqqu1960Depression Ppuemghqd76/29/1972Pneumococcal Vaccine: Pediatrics (0 to 5 Years) and At-Risk Patients (6 to 64 Years) (1 of 2 - PCV)1979Pap Smear1981Cervical Cancer Kkggwrxki67/29/1990HPV/Czkmyh0206/08/19905102Knbzfalzk89/29/2000Zoster Vaccines (1 of 2)2010Colorectal Cancer Pbqucbyow96/29/2024FIT-DNA2024 2021OVID-19 Vaccine (3 - season)504/, 10/10/2020 Influenza Vaccine (#1), 04/19/2018Adult Rynjtve2204/21/2034 04/21/2024HIB VaccinesAged OutNo longer eligible based on patient's age to complete this topicHPV VaccinesAged OutNo longer eligible based on patient's age to complete this topicIPV VaccinesAged OutNo longer eligible based on patient's age to complete this topicMeningococcal B VaccineAged OutNo longer eligible based on patient's age to complete this topicMeningococcal VaccineAged OutNo longer eligible based on patient's age to complete this topicRotavirus Vaccines Aged OutNo longer eligible based on patient's age to complete this topic Insurance * Guarantor: Radha Obrien TypeRelation to PatientDate of BirthPhone Billing AddressPersonal/HvrhtvHpzv[address] [place] [address] Care Teams Team MemberRelationshipSpecialtyStart DateEnd Date John Mcdaniels DO [address] [facility] [place] [address] [facility]11/08/23
--- OUTSIDE RECORDS SUMMARY | 2025-05-30 14:52 | XMS_ITS | CCD ---
Author Organization [facility] Care Team Providers Care Assemblies And Installations Inspector Name Role Phone BASIM, BARRY H. Unavailable Unavailable BASIM, BARRY H. Unavailable Unavailable BALL, JOHN E Unavailable Unavailable BASIM, BARRY H. Unavailable Unavailable BALL, JOHN E Unavailable Unavailable EBRAHEIM, MARYURI Attending Unavailable EBRAHEIM, MARYURI Admitting Unavailable SYMONE, JOHN Referring Unavailable SYMONE, JOHN Primary Care Unavailable EBRAHEIM, MARYURI Surgeon Unavailable [place] Procedure Practitioner Unavailab le MI Procedure Practitioner Unavailab PRAKASH Chery Surgeon Unavailable [...] ., NARRORO Consulting Amy vailable LAKSHMIPATHY ., NAREVARISTOATH Attending Amy vailable BALL, DR LOPEZ Primary [...] Primary Care Provider Kate Scruggs Unavailable Unavailable Anderson, Jordan Rogers Referring Unavailable Brown, Jordan A Admitting Unavailable Brown, Jordan A Attending Unavailable Brown, Jordan A Admitting Unavailable Brown, Jordan A Attending Unavailable Brown, Jordan A Referring Unavailable Brown, Jordan A Referring Unavailable Brown, Jordan A Admitting Unavailable Brown, Jordan A Attending Unavailable Brown, Jordan A Referring Unavailable Brown, Jordan A Admitting Unavailable Brown, Jordan A Attending Unavailable BrownDO Ortega A Admitting Unavailable Brown, DO Jordan A Attending Unavailable Brown, DO Jordan A Referring Unavailable Brown, DO Jordan A Admitting Unavailable Brown, DO Jordan A Attending Unavailable Brown, DO Jordan A Referring Unavailable Ball John CAMPOS Primary Care Provider Ethan Padilla DO Attending Provider [phone] Brown, Jordan A Referring Unavailable Brown, Jordan A Attending Unavailable Brown, Jordan A Admitting Unavailable Brown, Jordan A Admitting Unavailable Brown, Jordan A Referring Unavailable Brown, Jordan A Attending Unavailable CAROLINA ZHONG Attending Unavailable John Ashby DO Primary Care Provider John Ashby DO Attending Provider Giedraitis , Andrius Vytautflor Attending Unavailable Giedraitis , Andrius Vytautas Attending Unavailable Giedraitis , Andrius Vytautas Attending Unavailable Giedraitis , Andrius Vytautflor Attending Unavailable Sesar Arias DO Emergency Provider [phone] Sesar Arias Admitting Unavailable Sesar Arias Attending Unavailable John Ashby Primary Care Unavailable John Ashby Primary Care Unavailable Ethan Padilla Admitting Unavailable Ethan Padilla Attending Unavailable John Ashby DO Primary Care Provider John Ashby DO Primary Care Provider BROWN, JORDAN A Attending Unavailable BROWN, JORDAN A Attending Unavailable BROWN, JORDAN A Referring Unavailable BROWN, JORDAN A Referring Unavailable BROWN, JORDAN A Attending Unavailable BROWN, JORDAN A Referring Unavailable BROWN, JORDAN A Referring Unavailable BROWN, JORDAN A Attending Unavailable BROWN, JORDAN A Attending Unavailable BROWN, JORDAN A Referring Unavailable Allergies Allergy ClassificationReported Allergen(s)Allergy TypeDate of OnsetReaction(s) Facility (1 source)35074,00; Translations: [Unknown]Propensity to adverse reactions (disorder)90-96-1302Vbm [facility] Repository (20 sources)Cephalexin; Translations: [CEPHALEXIN]Drug [id number] [facility] for the [facility] Work Phone: (7 sources)patient allergy list reviewed by nurse or physiciaPropensity to adverse udhmdqwcg29-86-8156Rcsljuo:[place] Other (1 source)CephalexinDrug Hmkrgax51-79-8647XjibrroivT[facility] Medications Current Medications MedicationDrug Class(es)DatesSig (Normalized)Sig (Original)acetaminophen 500 mg oral tablet (12 sources)Start: 99-51-8970bchg 1 tablet by mouth every four hours for pain acetaminophen (Tylenol Extra Strength) 500 MG tablet Indications: Status post shoulder surgery Take1 tablet (500 mg) by mouth every 4 (four) hours if needed for mild pain 40 tablet 05/22/2024 Activeacetaminophen 325 mg / HYDROcodone bitartrate 5 mg oral tablet (20 sources)Opioid AgonistStart: 32-02-9786upmz 1 tablet by mouth three times daily as needed for painHydrocodone-Acetaminophen 5-325 mg tablet Active 1 TAB PO Three times daily as needed for pain 0 September 25, 2024 12:00am Complies with drug therapyStart: 96-26-9600ecao 1 tablet by mouth every twelve hours as neededHydrocodone-Acetaminophen 5-325 mg tablet Active 1 TAB PO Every 12 hours as needed September 252:00am Complies with drug therapyStart: 05-08-2024 End: 62-46-7872olvb 1-2 tablets by mouth every four hoursHYDROcodone- acetaminophen ([place]) 5-325 MG tablet Indications: Status post shoulder surgery Take 1-2 tablets by mouth every 4 (four) hours if needed (pain) for up to 7 days 40 tablet 05/08/2024 05/15/2024 ActiveStart: 33-88-1789fcuz 1 tablet by mouth every six hoursacetaminophen-hydrocodone 325 mg-5 mg oral tablet 1 tab(s), Oral, q6hr, Refill(s) 0, Pain Start Date: 03/19/24 Status: OrderedStart: 06-30-2023 HYDROcodone-acetaminophen ([place]) 5-325 MG tablet 06/30/2023 ActiveStart: 50-91-5902jpqp 1 tablet by mouth three times daily as neededHYDROcodone- acetaminophen ([place]) 5-325 MG tablet TAKE 1 TABLET BY MOUTH 3 TIMES A DAY NEEDED FOR PAIN*MUS LAST 30 DAYS 06/30/2023 Activeacetaminophen 325 mg / oxyCODONE hydrochloride 5 mg oral tablet (20 sources)Opioid AgonistStart: 21-85-6509Jdnpfecn 5 mg-325 mg oral tablet See Instructions, 40 tab(s), Refill(s) 0, 1-2 tab(s) Oral q4hr, [facility]/pharmacy #[id number], 165, cm, 03/19/24 13:53:00 EDT, Height/Length Dosing, 65, kg, 03/19/24 13:53:00 EDT, Weight Dosing Start Date: 04/27/24 Status: OrderedStart: 87-28-9906Ynzfehfs 5 mg-325 mg oral tablet See Instructions, 40 tab(s), Refill(s) 0, 1-2 tab(s) Oral q4hr, [facility]/pharmacy #[id number], 160, cm, 03/25/23 6:16:00 EDT, Height/Length Dosing, 73.5, kg, 03/25/23 6:16:00 EDT, Weight Dosing Start Date: 04/06/23 Status: OrderedStart: 06-30-2018 End: 97-84-9263euly 1 tablet by mouth three times dailyOxycodone-Acetaminophen 5-325 mg Tablet Discontinued 1 TAB PO Three times daily June 30, 2018 1:00am September 27, 2023 2:54pm pain End: 97-85-9753klup 1-2 tablets by mouth every six hoursoxyCODONE-acetaminophen (Percocet) 5-325 MG tablet TAKE 1-2 TABLETS BY MOUTH EVERY 6 HOURS 09/18/2024 Nopuaiwiugvp37 hr buPROPion hydrochloride 300 mg extended release oral tablet (20 sources)AminoketoneStart: 79-42-1161lcqa 1 tablet by mouth once daily Bupropion Hcl 300 mg tablet extended release 24 hr Active 300 MG PO Daily 90 90 December 10, 2024 8:39am Complies with drug therapyStart: 09-22-2023 End: 73-34-1984Dwgeglxut Hcl 300 mg tablet extended release 24 hr Discontinued 0 .ROUTE .COMPLEX 90 March 20, 2024 8:35am December 10, 2024 8:40am TAKE 1 TABLET DAILY IN THE MORNINGStart: 52-70-4098gnCRWAnrx XL (Wellbutrin XL) 300 MG 24 hr tablet 03/26/2023 ActiveStart: 82-63-2514reuf 1 tablet by mouth twice dailyWellbutrin XL 300 mg/24 hours Tab-ER 300 mg = 1 tab(s), Oral, BID, Refills(s) 0, Depression Start Date: 03/24/23 Status: OrderedStart: 06-30-2018 End: 07-86-1847pxfq 1 tablet by mouth once dailyBupropion Hcl 300 mg tablet extended release 24 hr Discontinued 300 MG PO Daily September 22, 2023 12:00am September 22, 2023 12:31pmtake 1 tablet by mouth twice daily in the morning buPROPion HCl ER (XL) 300 MG 1 tablet in the morning Orally twice daily for 90 days Activetake 1 tablet by mouth every twenty-four hoursbuPROPion HCl ER (XL) 150 MG 1 tablet in the morning Orally Once a day for 30 Activecelecoxib 100 mg oral capsule (3 sources)Nonsteroidal Anti-inflammatory DrugStart: 44-51-6490qmtl 1 capsule by mouth twice daily as needed for painCeleBREX 100 mg Cap 100 mg = 1 cap(s), Oral, BID, PRN for pain, # 60 cap(s), Refills(s) 0, Pharmacy: [facility]/pharmacy #[id number], 165, cm, 03/19/24 13:53:00 EDT, Height/Length Dosing, 65, kg, 03/19/24 13:53:00 EDT, Weight Dosing Start Date: 04/27/24 Status: OrderedStart: 57-84-6920uzry 1 capsule by mouth twice daily as needed for painCeleBREX 100 mg Cap 100 mg = 1 cap(s), Oral, BID, PRN for pain, # 60 cap(s), Refills(s) 0, Pharmacy: [facility]/pharmacy #[id number], 160, cm, 03/25/23 6:16:00 EDT, Height/Length Dosing, 73.5, kg, 03/25/23 6:16:00 EDT, Weight Dosing Start Date: 04/06/23 Status: Orderedcephalexin 500 mg oral capsule (1 source)Cephalosporin AntibacterialStart: 04-06-2023 End: 82-19-8724lsgm 1 capsule by mouth every eight hoursKeflex 500 mg Cap 500 mg = 1 cap(s), Oral, q8hr, X 7 day(s), # 21 cap(s), Refills(s) 0, Pharmacy: [facility]/pharmacy #[id number], 160, cm, 03/25/23 6:16:00 EDT, Height/Length Dosing, 73.5, kg, 03/25/23 6:16:00 EDT, Weight Dosing Start Date: 04/06/23 Stop Date: 04/13/23 Status: Orderedcitalopram 10 mg oral tablet (20 sources)Serotonin Reuptake InhibitorStart: 03-53-8082Xomimwelxn 10 mg tablet Active 0 .ROUTE .COMPLEX July 24, 2024 8:42am TAKE 1 TABLET DAILYStart: 51-12-9367Eobmhmxzqk 10 mg tablet Active 0 .ROUTE .[facility] July 24, 2024 7:42am TAKE 1 TABLET DAILYStart: 01-26-2024 End: 54-03-3759Lyizyqgqyz 10 mg tablet Discontinued 0 .ROUTE .[place] [id number] July 24, 2024 8:42am December 10, 2024 8:40am TAKE 1 TABLET DAILYStart: 01-26-2024 End: 00-55-0047Rknfupcdeo 10 mg tablet Discontinued 0 .ROUTE .COMPLEX January 26, 2024 8:54am July 2458:42am TAKE 1 TABLET DAILYStart: 01-26-2024 End: 10-63-8246Cmqxoxqwjx 10 mg tablet Discontinued 0 .ROUTE [address] [address] January 26, 2024 7:54am July 2457:42am TAKE 1 TABLET DAILYStart: 01-26-2024 Citalopram Active 0 .ROUTE .[facility] January 26, 2024 8:54am TAKE 1 TABLET DAILYStart: 08-17-2023 End: 65-75-4437zlkcujnoae (CeleXA) 10 MG tablet 08/17/2023 ActiveStart: 06-30-2018 End: 74-02-7038puec 1 tablet by mouth once dailyCitalopram 20 mg Tablet Discontinued 20 MG PO Daily June 30, 2018 1:00am September 27, 2023 2:50pm depressiontake 1 tablet by mouth every twenty-four hoursCitalopram Hydrobromide 10 MG 1 tablet Orally Once a day Activedocusate sodium 100 mg oral capsule (3 sources)Start: 70-39-0636weml 1 capsule by mouth twice daily as needed for constipationColace 100 mg Cap 100 mg = 1 cap(s), Oral, BID, PRN for constipation, # 20 cap(s), Refills(s) 0, Pharmacy: [facility]/pharmacy #[id number], 165, cm, 03/19/24 13:53:00 EDT, Height/Length Dosing, 65, kg, 03/19/24 13:53:00 EDT, Weight Dosing Start Date: 04/27/24 Status: OrderedStart: 89-99-1632rfaa 1 capsule by mouth twice daily as needed for constipationColace 100 mg Cap 100 mg = 1 cap(s), Oral, BID, PRN for constipation, # 20 cap(s), Refills(s) 0, Pha rmacy: [facility]/pharmacy #[id number], 160, cm, 03/25/23 6:16:00 EDT, Height/Length Dosing, 73.5, kg, 03/25/23 6:16:00 EDT, Weight Dosing Start Date: 04/06/23 Status: Orderedleflunomide 10 mg oral tablet (20 sources)Antirheumatic AgentStart: 06-30-2018 End: 35-81-6575mbnh 1 tablet by mouth once dailyLeflunomide (Arava) 10 mg tablet Active 10 MG PO Daily September 27, 2023 12:00am Complies with drug therapy lidocaine 0.05 mg/mg medicated patch (8 sources)Antiarrhythmic, Amide Local AnestheticStart: 06-13-2024 End: 67-76-7416uxfyv 1 dose transdermal route every twelve hours, then apply 1 dose transdermal route every twelvehourslidocaine (Lidoderm) 5 % patch Indications: Bilateral shoulder pain, unspecified chronicity Apply 1patch over 12 hours topically Daily Remove & discard patch within 12 hours or as directed by . 30 patch 5 06/13/2024 12/10/2024 Jkkbhu03 hr metoprolol succinate 100 mg extended release oral tablet (20 sources)beta-Adrenergic BlockerStart: 42-84-1954hrem 1 tablet by mouth once dailyMetoprolol Succinate 100 mg tablet extended release 24 hr Active 100 MG PO Daily September 27, 2023 12:00am Complies with drug therapyStart: 04-06-2023 End: 99-80-3966siskhprohi 100 mg ER Tab 100 mg = 1 tab(s), Tab-ER, Oral, Start date 04/06/23 9:00:00 PM EDT, 04/06/23 9:58:00 EDT Start Date: 04/06/23 Stop Date: 04/06/23 Status: CompletedStart: 36-15-5020rwrp 1 tablet by mouth at bedtime metoprolol 100 mg ER Tab 100 mg = 1 tab(s), Oral, Bedtime, Refills(s) 0, High blood pressure Start Date: 04/06/23 Status: Orderedmetoprolol succinate XL (Toprol-XL) 100 MG 24 hr tablet Activeomeprazole 40 mg delayed release oral capsule (20 sources)Proton Pump InhibitorStart: 20-45-1891Icaenuaadk 40 mg capsule,delayed release(DR/EC) Active 40 MG PO Daily April 15, 2025 12:30pm take on an empty stomach, 30 minutes prior to bkfst Complies with drug therapyStart: 06-04-2024 End: 29-73-7150Wcgnsnemne 40 mg capsule,delayed release(DR/EC) Discontinued 0 .ROUTE .COMPLEX 90 June 04, 2024 8:00am April 15, 2025 12:31pm TAKE 1 CAPSULE ONCE DAILY ON AN EMPTY STOMACH FOLLOWED IN 30 MINUTES BY BREAKFAST Start: 09-27-2023 End: 36-08-5781stzf 1 capsule by mouth once dailyOmeprazole 40 mg capsule,delayed release(DR/EC) Discontinued 40 MG PO Daily September 27, 2023 12:00am June 04, 2024 8:00amOmeprazole 40 mg capsule,delayed release(DR/EC) (4 sources)Start: 88-24-0001Ptzmffihpp 40 mg capsule,delayed release(DR/EC) Active 0 .ROUTE .COMPLEX June 04, 2024 8:00am TAKE 1 CAPSULE ONCE DAILY ON AN EMPTY STOMACH FOLLOWED IN 30 MINUTES BY BREAKFASTStart: 06-04-2024 Omeprazole 40 mg capsule,delayed release(DR/EC) Active 0 .ROUTE .COMPLEX June 04, 2024 7:00am TAKE 1 CAPSULE ONCE DAILY ON AN EMPTY STOMACH FOLLOWED IN 30 MINUTES BY BREAKFASTondansetron 4 mg disintegrating oral tablet (9 sources)Serotonin-3 Receptor AntagonistStart: 10-57-8401fudo 1 tablet by mouth every eight hours as needed for nausea and vomitingOndansetron 4 mg tablet,disintegrating Active 4 MG PO Every 8 hours as needed for nausea and vomiting April 13, 2024 12:00am Complies with drug therapypregabalin 150 mg oral capsule (20 sources)Start: 89-49-4931upcmfkkzji (Lyrica) 150 MG capsule 03/31/2023 ActiveStart: 06-30-2018 End: 80-29-7629sqsd 1 capsule by mouth three times dailyPregabalin (Lyrica) 75 mg Capsule Discontinued 75 MG PO Three times daily June 30, 2018 1:00am September 27, 2023 2:54pm pain, neuropathySemaglutide (1 source)Start: 31-67-4293zatsvx 2 mg by subcutaneous injection every week Semaglutide Active 2 MG SUBCUT every week 10 05April 17, 2024 12:00am tiZANidine 4 mg oral tablet (20 sources)Central alpha-2 Adrenergic AgonistStart: 45-42-7417rubg 3 tablets by mouth once daily in the eveningTizanidine 4 mg tablet Active 12 MG PO Every evening April 29, 2025 12:00am Complies with drug therapyStart: 09-25-2024 take 1 capsule by mouth once dailyTizanidine 4 mg capsule Active 4 MG PO Daily September 25, 2024 10:36am muscle spasm Complies with drug therapyStart: 46-71-7241iies 1 capsule by mouth four times dailyTizanidine 4 mg capsule Active 4 MG PO Four times daily September 25, 2024 10:36am Complies with drugtherapy Start: 09-27-2023 End: 67-71-5580qcci 1 capsule by mouth every six hoursTizanidine 4 mg capsule Discontinued 4 MG PO Every 6 hours September 27, 2023 2:53pm September 25, 2024 10:38am muscle spasmStart: 31-87-1710fjfb 1 tablet by mouth in the morning, then take 3 tablets by mouth at bedtimeZanaflex 4 mg Tab See Instructions, 1 tab(s) Oral in AM 3 tabs at bedtime, Refills(s) 0 Start Date:03/24/23 Status: Ordered Start: 06-30-2018 End: 38-75-5576hfsb 1 capsule by mouth twice dailyTizanidine 4 mg Capsule Discontinued 4 MG PO Twice daily June 30, 2018 1:00am September 27, 2023 2:54pm muscle spasmtake 1 capsule by mouth every six hourstiZANidine HCl 4 MG 1 tablet as needed Oral every 6 hours for 30 Active Completed/Discontinued Medications MedicationDrug Class(es)DatesSig (Normalized)Sig (Original)alendronic acid 70 mg oral tablet (15 sources)BisphosphonateStart: 06-30-2018 End: 59-66-1723rays 1 tablet by mouth every weekAlendronate (Fosamax) 70 mg Tablet Discontinued 70 MG PO every week June 30, 2018 1:00am September 27, 2023 2:54pmaspirin 81 mg delayed release oral tablet (20 sources)Platelet Aggregation Inhibitor, Nonsteroidal Anti-inflammatory Drug Start: 06-30-2018 End: 04-59-0310twpa 1 tablet by mouth once dailyAspirin 81 mg Tablet,Delayed Release (Dr/Ec) Discontinued 81 MG PO Daily June 30, 2018 1:00amMarc2023 2:48pm blood clot preventionbetamethasone 3 mg/ml / betamethasone acetate 3 mg/ml injectable suspension (4 sources)CorticosteroidStart: 06-05-2024 End: 81-35-8733uskagzsbfivvf acetate-betamethasone sodium phosphate (Celestone) injection 2 mLStart: 06-05-2024 End: mL, Intra-articular, Once PRN Procedure, Starting on Tue06/05/24 at 1426, For 1 dosecalcium carbonate 1500 mg oral tablet (18 sources)Start: 97-41-3218gpjq 1 tablet by mouth every twelve hoursCalcium 600 MG 1 tablet with meals Orally Twice a day Apr, Not-Taking/PRNStart: 29-80-8748uwjh 1 tablet by mouth every twelve hoursCalcium 600 MG 1 tablet with meals Orally Twice a day Apr, Not-Xgzzwh41 hr dilTIAZem hydrochloride 360 mg extended release oral tablet (15 sources)Calcium Channel BlockerStart: 06-30-2018 End: 03-47-3842afbg 1 tablet by mouth once dailyDiltiazem Hcl 360 mg Tablet Extended Release 24 Hr Discontinued 360 MG PO Daily June 30, 20181:00am September 27, 2023 2:50pm tachycardiadoxycycline hyclate 100 mg oral capsule (20 sources)Tetracycline-class DrugStart: 09-27-2023 End: 21-46-0934omkg 1 capsule by mouth twice dailyDoxycycline Hyclate 100 mg capsule Discontinued 100 MG PO Twice daily September 27, 2023 12:00am September 28, 2023 3:15pmStart: 33-10-5365jslu 1 capsule by mouth every twelve hours Doxycycline Hyclate 100 MG 1 capsule Orally Twice a day for 5 days Jun, ActiveStart: 07-06-2018 End: 74-62-6288boog 1 tablet by mouth twice dailyDoxycycline Hyclate 100 mg tablet Discontinued 100 MG PO Twice daily 10 5 0 July 06, 2018 1:00am September 27, 2023 2:50pmibuprofen 800 mg oral tablet (15 sources)Nonsteroidal Anti-inflammatory DrugStart: 07-06-2018 End: 34-68-1694bhea 1 tablet by mouth three times dailyIbuprofen 800 mg tablet Discontinued 800 MG PO Three times daily 60 0 July 06, 2018 1:00am September 27, 2023 2:50pm Postoperative pain of extremity Other acute postprocedural painlisinopril 5 mg oral tablet (20 sources)Angiotensin Converting Enzyme InhibitorStart: 09-27-2023 End: 57-17-9494bczi 1 tablet by mouth once dailyLisinopril 5 mg tablet Discontinued 5 MG PO Daily September 27, 2023 12:00am September 25, 2024 10:35am Start: 04-07-2023 End: 06-66-3800dgphosgnlj 5 mg Tab 5 mg = 1 tab(s), Tab, Oral, Start date 04/07/23 9:00:00 AM EDT, 04/06/23 9:58:00EDT Start Date: 04/07/23 Stop Date: 04/07/23 Status: CompletedStart: 11-09-2022 End: 09-97-8294utzm 1 tablet by mouth in the morninglisinopril 5 MG tablet Take 1 tablet by mouth in the morning. 01/21/2023 07/17/2024 Discontinuedphentermine hydrochloride 37.5 mg oral capsule (20 sources)Sympathomimetic Amine AnorecticStart: 09-02-2023 End: 50-17-4297fpni 1 capsule by mouth once daily 30 minutes after breakfast Phentermine 37.5 mg capsule Discontinued 37.5 MG PO Daily 0 September 02, 2023 4:19pm September 02, 2023 4:44pm Overweight Overweight must administer 30 minutes before or 1-2 hours after breakfastStart: 11-88-4156mngg 1 tablet by mouth once dailyPhentermine HCl 37.5 MG take 1 tablet by mouth once daily for 30 Jan, ActiveStart: 38-14-5607udbq 1 tablet by mouth every twenty-four hoursAdipex-P 37.5 MG 1 tablet Orally Once a day for 30 days Dec, Active Start: 67-61-1408iwri 1 tablet by mouth every twenty-four hoursAdipex-P 37.5 MG 1 tablet Orally Once a day for 30 days Jul, ActiveSemaglutide (6 sources)Start: 10-23-2024 End: 13-70-1119sotmtv 2 mg by subcutaneous injection every weekSemaglutide 2 mg/dose (8 mg/3 mL) pen injector Discontinued 2 MG SUBCUT every week 3 October 23, 2024 8:46am October 23, 2024 8:47amStart: 10-23-2024 End: 57-96-7400vtcbld 2 mg by subcutaneous injection every weekSemaglutide 2 mg/dose (8 mg/3 mL) pen injector Discontinued 2 MG SUBCUT every week 3 October 8:46am October 23, 2024 8:47amStart: 04-17-2024 End: 70-97-8686mefhdp 2 mg by subcutaneous injection every weekSemaglutide 2 mg/dose (8 mg/3 mL) pen injector Discontinued 2 MG SUBCUT every week 3 April 17, 2024 12:00am October 23, 2024 8:46amStart: 04-17-2024 End: 40-54-3183aopqlv 2 mg by subcutaneous injection every weekSemaglutide 2 mg/dose (8 mg/3 mL) pen injector Discontinued 2 MG SUBCUT every week 3 April 17, 2024 12:00am October 23, 2024 8:46amSemaglutide 2 mg/dose (8 mg/3 mL) pen injector (6 sources)Start: 10-23-2024 End: 52-89-3360tgdyej 2 mg by subcutaneous injection every weekSemaglutide 2 mg/dose (8 mg/3 mL) pen injector Discontinued 2 MG SUBCUT every week 3 October 8:46am October 23, 2024 8:47amStart: 04-17-2024 End: 07-86-4559bnrhne 2 mg by subcutaneous injection every weekSemaglutide 2 mg/dose (8 mg/3 mL) pen injector Discontinued 2 MG SUBCUT every week 3 April 17, 2024 12:00am October 23, 2024 8:46amStart: 33-88-2395ftiurt 2 mg by subcutaneous injection every weekSemaglutide 2 mg/dose (8 mg/3 mL) pen injector Active 2 MG SUBCUT every week 3 April 172:00amStart: 04-17-2024 inject 2 mg by subcutaneous injection every weekSemaglutide 2 mg/dose (8 mg/3 mL) pen injector Active 2 MG SUBCUT every week 3 April 161:00pm traZODone hydrochloride 100 mg oral tablet (15 sources)Serotonin Reuptake InhibitorStart: 06-30-2018 End: 91-30-4653Apbsfrvxh 100 mg Tablet Discontinued 50 MG PO Daily at bedtime June 30, 2018 1:00am September 27, 2023 2:54pm insomniaStart: 06-30-2018 End: 05-90-1582kqwp 50 mg by mouth once daily at bedtimeTrazodone Discontinued 50 MG PO Daily at bedtime June 30, 2018 1:00am September 27, 2023 2:54pm24 hr upadacitinib 15 mg extended release oral tablet (20 sources)Start: 03-24-2023 End: 64-48-2439jjbq 1 tablet by mouth once dailyUpadacitinib 15 mg tablet extended release 24 hr Discontinued 15 MG PO Daily September 27, 2023 12:00am April 29, 2025 5:04pmRinvoq 15 MG tablet sustained-release 24 hour in the morning. ActivevalACYclovir 1000 mg oral tablet (20 sources)Herpesvirus Nucleoside Analog DNA Polymerase Inhibitor, Herpes Simplex Virus Nucleoside Analog DNA Polymerase Inhibitor, Herpes Zoster Virus Nucleoside Analog DNA Polymerase InhibitorStart: 09-27-2023 End: 19-55-8892zblb 2000 mg by mouth twice dailyValacyclovir Discontinued 2000 MG PO Twice daily September 27, 2023 12:00am September 28, 2023 3:15pmStart: 03-31-2023 End: 93-77-5413vvvIUWuuxgsx (Valtrex) 1 g tablet Take 2,000 mg by mouth in the morning and 2,000 mg before bedtime. 03/31/2023 Activetake 2 tablets by mouth every twelve hoursvalACYclovir HCl 1 GM 2 tablets Orally Twice a day Activetake 2 tablets by mouth every twelve hoursvalACYclovir HCl 1 GM 2 tablets Orally Twice a day Activetake 1 tablet by mouth every twelve hoursvalACYclovir HCl 1 GM 1 tablet Orally Twice a day Active Problems Active Problems Problem ClassificationProblemDateDocumented DateEpisodic/ChronicAbdominal pain (20 sources)Indigestion; Translations: [Epigastric pain] Resolved: [id number] bronchitis (10 sources)Acute bronchitis; Translations: [Acute bronchitis due to other specified organisms]EpisodicAnxiety disorders (20 sources)Generalized anxiety disorder; Translations: [Generalized anxiety disorder]ChronicCardiac dysrhythmias (20 sources)Paroxysmal tachycardia; Translations: [Paroxysmal tachycardia, unspecified]Onset: 45-51-2998JcrulvuHcfpzma dysrhythmias (5 sources)Mdgpjvcudza32-92-1368ScsjofszHajvzsb kidney disease (20 sources)Chronic kidney disease; Translations: [Chronic kidney disease, unspecified]59-82-2560BopwmunJsewbdgvwj heart failure; nonhypertensive (20 sources)Chronic systolic heart failure; Translations: [Chronic systolic (congestive) heart failure]Onset: [id number] on above: LHC: normal - 2011, Echo: LVEF 61%, normal RV size/function, RVSP 25 - 03/2024,Echo: LVEF 55%, normal RV size/function, RVSP 28 - 11/2024Deficiency and other anemia (20 sources)Anemia; Translations: [Anemia, unspecified]29-68-5174Hawekapv Deficiency and other anemia (5 sources)Anemia, unspecified; Translations: [Anemia, unspecified]Onset: 09-28-2288CtjbumizTgxpblokuv and other anemia (9 sources)Pernicious anemia; Translations: [Vitamin B12 deficiency anemia due to intrinsic factor deficiency]76-69-2244GbwwlnxxRlxtnnbflm and other anemia (7 sources)Vitamin B12 deficiency anemia due to intrinsic factor deficiency; Translations: [Pernicious anemia]48-98-9691GwnneoyhPrfiubnby of lipid metabolism (9 sources)Hypercholesterolemia; Translations: [Pure hypercholesterolemia, unspecified]Onset: 161596-53-3553BkxeogjKadqaqtld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 InformationOrdered By: John Ashby on 29-15-7714Dsbgxkffmaz # (Auto)0.5 10 3/uL0.0-0.7FElyria Memorial HospitalImmature Granulocyte # (Auto)0.01 10 3/uL0.00-0.03 [facility] HospitalProtein Electrophoresis M-SpikeNot Observed g/dLNot ObservedTwin City HospitalProtein Electrophoresis Note Comment.[facility] HospitalComment on above:Protein electrophoresis scan will follow via computer,mail, or cover marker delivery.Platelet mean volume Auto (Bld) [Entitic vol]Ordered By: John Ashby on 03-08-2025 Platelet mean volume (Bld) [Entitic vol]9.1 fLLow9.5-13.5FElyria Memorial HospitalPlatelets Auto (Bld) [#/Vol]Ordered By: John Ashby on 97-76-5456Qihaohrwm (Bld) [#/Vol]219 10 3/jN058-126XkbjxcupkTwin City HospitalProtein [Mass/volume] in Serum or PlasmaOrdered By: John Ashby on 46-81-9168Xmysgol [Mass/Vol]7.2 g/dL6.0-8.5FElyria Memorial HospitalRBC Auto (Bld) [#/Vol]Ordered By: John Ashby on 35-04-7493DAJ (Bld) [#/Vol]4.69 10 6/uL4.20-5.40[facility] Memorial Hospitalerum globulin measurement (mass/volume)Ordered By: John Ashby on 64-52-2103Zshkwefm (S) [Mass/Vol]3.1 g/dL2.2-3.9[facility] Memorial Hospitalerum or plasma albumin/globulin mass ratioOrdered By: John Ashby on 63-51-9617Jvrpoyg/Globulin [Mass ratio] 1.1 {ratio}[facility] HospitalAlbumin/Globulin [Mass ratio]1.4 {ratio}0.7-1.7FOhioHealth O'Bleness Hospitalerum or plasma alpha 1 globulin measurement by electrophoresis (mass/volume)Ordered By: John Ashby on 01-76-0798Voaot 1 globulin Elph [Mass/Vol]0.3 g/dL0.0-0.4FOhioHealth O'Bleness Hospitalerum or plasma alpha 2 globulin measurement by electrophoresis (mass/volume)Ordered By: John Ashby on 82-66-7067Wszyk 2 globulin Elph [Mass/Vol]1.1 g/dLAbnormal0.4-1.0[facility] Memorial Hospitalerum or plasma anion gap determinationOrdered By: John Ashby on 86-26-4580Ifpsi gap [Moles/Vol]12.8 mmol/LFOhioHealth O'Bleness Hospitalerum or plasma beta globulin measurement by electrophoresis (mass/volume)Ordered By: John Ashby on 45-30-2089Grsh globulin Elph [Mass/Vol]1.1 g/dL0.7-1.3FOhioHealth O'Bleness Hospitalerum or plasma free cefuroxime measurement (mass/volume)Ordered By: John Ashby on 53-34-1880Dzjehmgoyx free [Mass/Vol]NegativeNegative [facility] HospitalComment on above:Performed at: [facility] Lab[address] Director: Lito Matamoros PhD, Phone: [phone] or plasma gamma globulin measurement by electrophoresis (mass/volume)Ordered By: John Ashby on 55-60-3500Sfbcq globulin Elph [Mass/Vol]0.6 g/dL0.4-1.8[facility] Hospitalerum or plasma immunoelectrophoresis interpretationOrdered By: John Ashby on 03-08-2025 Interpretation IEP [Interp]Comment.[facility] HospitalComment on above:No monoclonality detected.Office Visiton 00-95-2897Vdkuts-up [id number] Radha Zaidi 1960 F Date Provider Department Center 12/10/2024 Jerry-CAROLINA ZHONG BEAR Griffin Family History Problem Relation Age of Onset Coronary artery disease Mother Family Status - Relation Status Age at Mother Father Alive Level of Service:20455 MI OFFICE/OUTPATIENT ESTABLISHED MOD [facility]Orders Onlyon 51-33-6331Zpxcck [id number] Radha Zaidi 1960 F Date Provider Department Center 12/06/2024 [id number], HISTORICAL CARD Tabitha Hos Family History Family history unknown: YesNormalUniversity of Hereford Regional Medical CenterX-ray report Ordered By: Alexi Wells on 29-95-2268Iqkzl reportFIRLIMA CITY H[facility] [address] [place] [address] XRay Report Signed Patient: Radha Zaidi MR#: [id number] : 1960 Acct:[id number] Age/Sex: 64 / F ADM Date: 5 Loc: SOXD Room: Type: REG CLI Attending Dr: Ethan [...] Wells M.D. 11/06/2024 9:08 PM Dictation Location: [place] [address] Transcribed By: [facility] 11/06/242107 Dictated By: Alexi Wells MD 11/06/242105 Signed By: 11/06/242107 [facility] Work Phone: xr shoulder LT min 2V*on 13-12-2918BQ shoulder LT min 2V*[facility] [address] [place] [address] XRay Report Signed Patient: Radha Zaidi MR#: [id number] : 1960 Acct:[id number] Age/Sex: 64 / F ADM Date: 11/06/24 Loc: SOXD Room: Type: REG CLI Attending Dr: Ethan [...] Wells M.D. 11/06/2024 9:08 PM Dictation Location: [place] [address] Transcribed By: [facility] 11/06/242107 Dictated By: Alexi Wells MD 11/06/242105 Signed By: 11/06/242107[facility] HospitalMRI Shoulder w/o Contrast Lefton 35-35-1038UPP Shoulder w/o Contrast LeftExam Date/Time: 09/28/2024 18:24 EDT Reason for Exam: [...] Gigi Suazo DO Transcribed by: DANISHA Technologist: [facility]iatric CenterBasophils Auto (Bld) [#/Vol]on 78-66-1489Wbtuftjij (Bld) [#/Vol]Automated basophil count 0.0-0.1FElyria Memorial HospitalBasophils/100 WBC Auto (Bld)on 44-47-2627Jygijtfbo/100 WBC (Bld)Automated basophil %0.2-2.0[facility] HospitalCholesterol in LDL Calc [Mass/Vol]on 40-72-5563Axyltekqtix in LDL [Mass/Vol]Cholesterol in LDL [Mass/volume] in Serum or Plasma by calculation [facility] HospitalComment on above:<100 mg/dl WELOXZQ050-035 mg/dl NEAR OR ABOVE KRDRWKL801-786 mg/dl BORDERLINE HFRM948-223 mg/dl HIGH>190 mg/dl VERY HIGHCholesterol in VLDL Calc [Mass/Vol]on 29-32-1660Pgktpaqqgby in VLDL [Mass/Vol]Cholesterol in VLDL [Mass/volume] in Serum or Plasma by calculationTwin City HospitalEosinophils/100 WBC Auto (Bld)on 36-28-6835Vmavgixakcy/100 WBC (Bld)Automated eosinophil %0.9-7.0[facility] HospitalErythrocyte distribution width Auto (RBC) [Ratio]on 82-89-7159Dpzexsgyuhg distribution width (RBC) [Ratio]Erythrocyte distribution width [Ratio] by Automated eqrfoTlvu92.0-15.0[facility] Estimated glomerular filtration rate (GFR) non- Americanon 08-31-2024 GFR/1.73 sq M.predicted among non-blacks MDRD (S/P/Bld) [Vol rate/Area]Estimated glomerular filtration rate (GFR) non- AmericanLow>=60 mL/min/1.73m 2 [facility] HospitalGlobulin Calc (S) [Mass/Vol]on 08-31-2024 Globulin (S) [Mass/Vol]Serum globulin measurement by calculation (mass/volume) [facility] HospitalHematocrit Auto (Bld) [Volume fraction]on 72-03-1535Lbhwgqtxvv (Bld) [Volume fraction]Hematocrit [Volume Fraction] of Blood by Automated hjaffJrc98.0-48.0[facility] HospitalHemoglobin [Mass/volume] in Bloodon 02-38-2512Fvvnmgfeoj (Bld) [Mass/Vol]Hemoglobin [Mass/volume] in KngbeHpp19.0-16.0[facility] HospitalLaboratory - Chemistry and Chemistry - challengeon 24-58-1194Ycjflfq [Mass/Vol]3.8 g/dL 3.4-5.0[facility] HospitalALP [Catalytic activity/Vol]60 U/L46-116 [facility] HospitalALT [Catalytic activity/Vol]15 U/L14-59 [facility] HospitalAST [Catalytic activity/Vol]9 U/KNiy09-42 [facility] HospitalBilirubin [Mass/Vol]0.5 mg/dL0.2-1.0[facility] HospitalCalcium [Mass/Vol]9.2 mg/dL8.5-10.1FElyria Memorial HospitalChloride [Moles/Vol]107 mmol/D57-385CvysacfujTwin City HospitalCholesterol [Mass/Vol]196 mg/dL<=200[facility] Cholesterol in HDL [Mass/Vol]68 mg/dOFobe38-97LixkdqcdlT[facility] City Hospital Comment on above:> or =60 mg/dl - LOW CARDIOVASCULAR RISK<40 mg/dl - HIGH CARDIOVASCULAR RISKCO2 [Moles/Vol]26.9 mmol/L21.0-32.0[facility] HospitalCreatinine [Mass/Vol]1.29 mg/dLHigh0.55-1.02T[facility] HospitalGFR/1.73 sq M.predicted MDRD (S/P/Bld) [Vol rate/Area]50 mL/min/{1.73_m2} Low>=60 mL/min/1.73m 2FElyria Memorial HospitalGlucose [Mass/Vol]72 mg/gDLco36-189DwycilkxaTwin City HospitalPotassium [Moles/Vol]4.3 mmol/L 3.5-5.1FElyria Memorial HospitalProtein [Mass/Vol]7.0 g/dL6.4-8.2 [facility] Memorial Hospitalodium [Moles/Vol]143 mmol/Z404-906XolbjcqyrTwin City HospitalTriglyceride [Mass/Vol]66 mg/dL<=150T[facility] HospitalTSH Qn1.339 m[IU]/L0.358-3.740[facility] Urea nitrogen [Mass/Vol]20.0 mg/dLHigh7.0-18.0[facility] Urea nitrogen/Creatinine [Mass ratio]15.5 mg/mgTwin City Hospital Laboratory - Hematology and Cell countson 25-61-5094Rwyfxygu granulocytes/100 WBC (Bld)0.4 %0.0-0.5FElyria Memorial HospitalLeukocytes [#/volume] corrected for nucleated erythrocytes in Blood by Automated counon 49-37-5918RYH corrected for nucl RBC Auto (Bld) [#/Vol]Leukocytes [#/volume] corrected for nucleated erythrocytes in Blood by Automated coun4.0-11.0[facility] HospitalLymphocytes Auto (Bld) [#/Vol]on 13-87-2613Vtqeulrihgf (Bld) [#/Vol]Lymphocytes [#/volume] in Blood by Automated count1.2-3.8[facility] HospitalLymphocytes/100 WBC Auto (Bld)on 08-31-2024 Lymphocytes/100 WBC (Bld)Lymphocytes/100 leukocytes in Blood by Automated count 20.5-60.0[facility]H Auto (RBC) [Entitic mass]on 79-98-6129HZU (RBC) [Entitic mass]MCH [Entitic mass] by Automated count26.7-34.0 [facility] HospitalMCHC Auto (RBC) [Mass/Vol]on 05-49-3356UTWL (RBC) [Mass/Vol]MCHC [Mass/volume] by Automated count29.9-35.2FCommunity Regional Medical CenterV Auto (RBC) [Entitic vol]on 64-05-0558DHB (RBC) [Entitic vol] MCV [Entitic volume] by Automated ixkfgQvit05.0-99.0[facility] HospitalMicroalbumin [Mass/volume] in Urineon 74-62-5248Nuhpztr DL <= 20 mg/L (U) [Mass/Vol]Microalbumin [Mass/volume] in Urine<=30.0[facility] HospitalMonocytes Auto (Bld) [#/Vol]on 21-94-5411Zmljsitvp (Bld) [#/Vol]Automated blood monocyte count0.3-0.8[facility] HospitalMonocytes/100 WBC Auto (Bld)on 98-06-0069Dqoxobuae/100 WBC (Bld)Automated monocyte %1.7-12.0 [facility] HospitalNeutrophils Auto (Bld) [#/Vol]on 08-31-2024 Neutrophils (Bld) [#/Vol]Neutrophils [#/volume] in Blood by Automated count 1.4-6.5FElyria Memorial HospitalNeutrophils/100 WBC Auto (Bld)on 47-91-8526Ttdgvgngefk/100 WBC (Bld)Automated neutrophil %43.0-75.0[facility] HospitalNo Panel Informationon 03-69-3725Pzquxjoecwa # (Auto)0.2 10 3/uL0.0-0.7FElyria Memorial HospitalImmature Granulocyte # (Auto)0.02 10 3/uL0.00-0.03[facility] HospitalUrine Random Bknqoyrlbp423.19 mg/dL20.00-300.00[facility] HospitalPlatelet mean volume Auto (Bld) [Entitic vol]on 73-05-2035Eofjpptq mean volume (Bld) [Entitic vol]Platelet mean volume [Entitic volume] in Blood by Automated countLow9.5-13.5FElyria Memorial HospitalPlatelets Auto (Bld) [#/Vol]on 17-72-9044Ijskmikqt (Bld) [#/Vol]Platelets [#/volume] in Blood by Automated -815RxfmmrnosTwin City HospitalRBC Auto (Bld) [#/Vol]on 47-41-5600OZQ (Bld) [#/Vol]Erythrocytes [#/volume] in Blood by Automated countLow4.20-5.40[facility] Memorial Hospitalerum or plasma albumin/globulin mass ratioon 11-92-7867Bknfnsw/Globulin [Mass ratio]Serum or plasma albumin/globulin mass ratioBrown Memorial Hospitalerum or plasma anion gap determinationon 15-03-3876Khfbq gap [Moles/Vol]Serum or plasma anion gap determinationBrown Memorial Hospitalerum or plasma total cholesterol/high density lipoprotein (HDL) cholesterol mass albina 47-22-2622Smzmvsdfsjq.total/Cholesterol in HDL [Mass ratio]Serum or plasma total cholesterol/high density lipoprotein (HDL) cholesterol mass ratTwin City HospitalComment on above:3.3 - 4.4 LOW RISK4.4 - 7.1 AVERAGE RISK7.1 - 11.0 MODERATE RISK>11.0 HIGH RISKUrine microalbumin/creatinine mass ratioon 87-07-6801Ydlwfcl/Creatinine DL <= 20 mg/L (U) [Mass ratio]Urine microalbumin/creatinine mass ratio0.0-29.9[facility] HospitalComment on above:NO MICROALBUMINURIA 0-29 MG/GCLINICAL MICROALBUMINURIA 30-300 MG/GMACROALBUMINURIA >300 MG/GBasophils Auto (Bld) [#/Vol]on 50-19-4590Fwufirfdf (Bld) [#/Vol]Automated basophil count0.0-0.1 [facility] HospitalBasophils/100 WBC Auto (Bld)on 06-21-2024 Basophils/100 WBC (Bld)Automated basophil %0.2-2.0[facility] HospitalEosinophils/100 WBC Auto (Bld)on 84-20-2003Dzmcohuxdph/100 WBC (Bld) Automated eosinophil %0.9-7.0[facility] HospitalErythrocyte distribution width Auto (RBC) [Ratio]on 23-72-0515Lkmivrjazuy distribution width (RBC) [Ratio]Erythrocyte distribution width [Ratio] by Automated count11.0-15.0 [facility] HospitalEstimated glomerular filtration rate (GFR) non- Americanon 98-87-5345RMP/1.73 sq M.predicted among non-blacks MDRD (S/P/Bld) [Vol rate/Area]Estimated glomerular filtration rate (GFR) non- AmericanLow>=60 mL/min/1.73m 2FElyria Memorial HospitalGlobulin Calc (S) [Mass/Vol]on 48-42-9848Oywchyne (S) [Mass/Vol]Serum globulin measurement by calculation (mass/volume)[facility] HospitalHematocrit Auto (Bld) [Volume fraction]on 85-64-4599Lroiwofsml (Bld) [Volume fraction]Hematocrit [Volume Fraction] of Blood by Automated ywimaIts75.0-48.0[facility] HospitalHemoglobin [Mass/volume] in Bloodon 76-66-9577Sbwgydwuny (Bld) [Mass/Vol]Hemoglobin [Mass/volume] in MjlnoLcq11.0-16.0[facility] HospitalLaboratory - Chemistry and Chemistry - challengeon 06-21-2024 Albumin [Mass/Vol]3.8 g/dL3.4-5.0[facility] HospitalALP [Catalytic activity/Vol]48 U/V26-942XiykdgtupTwin City HospitalALT [Catalytic activity/Vol]13 U/LWrk35-70NwffupyqsTwin City HospitalAST [Catalytic activity/Vol]14 U/VTzw05-05ZqccetzsvTwin City HospitalBilirubin [Mass/Vol] 0.5 mg/dL0.2-1.0[facility] HospitalCalcium [Mass/Vol]9.1 mg/dL 8.5-10.1FElyria Memorial HospitalChloride [Moles/Vol]105 mmol/L98-107 [facility] HospitalCO2 [Moles/Vol]26.1 mmol/L21.0-32.0[facility] HospitalCreatinine [Mass/Vol]1.43 mg/dLHigh0.55-1.02[facility] HospitalGFR/1.73 sq M.predicted MDRD (S/P/Bld) [Vol rate/Area]45 mL/min/{1.73_m2}Low>=60 mL/min/1.73m 2FElyria Memorial HospitalGlucose [Mass/Vol]76 mg/zZ10-554NnphurqxwTwin City HospitalPotassium [Moles/Vol] 3.4 mmol/LLow3.5-5.1FElyria Memorial HospitalProtein [Mass/Vol]6.7 g/dL 6.4-8.2FOhioHealth O'Bleness Hospitalodium [Moles/Vol]144 mmol/F377-191 [facility] HospitalUrea nitrogen [Mass/Vol]18.0 mg/dL7.0-18.0 [facility] HospitalUrea nitrogen/Creatinine [Mass ratio]12.6 mg/mg [facility] HospitalLaboratory - Hematology and Cell countson 38-92-2628GEP (Bld) [Velocity]6 mm/h<=30[facility] Immature granulocytes/100 WBC (Bld)0.3 %0.0-0.5FElyria Memorial Hospital Leukocytes [#/volume] corrected for nucleated erythrocytes in Blood by Automated counon 71-45-1460JGS corrected for nucl RBC Auto (Bld) [#/Vol]Leukocytes [#/volume] corrected for nucleated erythrocytes in Blood by Automated counLow 4.0-11.0[facility] HospitalLymphocytes Auto (Bld) [#/Vol]on 73-07-6664Nbrmxymiqas (Bld) [#/Vol]Lymphocytes [#/volume] in Blood by Automated count1.2-3.8[facility] HospitalLymphocytes/100 WBC Auto (Bld)on 97-62-7634Trfjddfvxuq/100 WBC (Bld)Lymphocytes/100 leukocytes in Blood by Automated count20.5-60.0[facility]H Auto (RBC) [Entitic mass]on 87-40-1166NCD (RBC) [Entitic mass]MCH [Entitic mass] by Automated count 26.7-34.0[facility] HospitalMCHC Auto (RBC) [Mass/Vol]on 03-08-8235SOFE (RBC) [Mass/Vol]MCHC [Mass/volume] by Automated count29.9-35.2 [facility] HospitalMCV Auto (RBC) [Entitic vol]on 25-81-7815EPH (RBC) [Entitic vol]MCV [Entitic volume] by Automated count81.0-99.0[facility] HospitalMonocytes Auto (Bld) [#/Vol]on 28-55-9158Zrasbazzv (Bld) [#/Vol]Automated blood monocyte count0.3-0.8[facility] Monocytes/100 WBC Auto (Bld)on 81-12-4272Hudlidkdy/100 WBC (Bld)Automated monocyte %1.7-12.0[facility] HospitalNeutrophils Auto (Bld) [#/Vol]on 95-17-5197Sgrwesrerql (Bld) [#/Vol]Neutrophils [#/volume] in Blood by Automated count1.4-6.5FElyria Memorial HospitalNeutrophils/100 WBC Auto (Bld)on 62-34-3615Qypmesziugb/100 WBC (Bld)Automated neutrophil %Low43.0-75.0 [facility] HospitalNo Panel Informationon 93-19-7027Ablfhplnzrc # (Auto)0.1 10 3/uL0.0-0.7FElyria Memorial HospitalImmature Granulocyte # (Auto)0.01 10 3/uL0.00-0.03[facility] HospitalPlatelet mean volume Auto (Bld) [Entitic vol]on 07-42-3535Gtmdnxxn mean volume (Bld) [Entitic vol] Platelet mean volume [Entitic volume] in Blood by Automated countLow9.5-13.5 [facility] HospitalPlatelets Auto (Bld) [#/Vol]on 06-21-2024 Platelets (Bld) [#/Vol]Platelets [#/volume] in Blood by Automated ctibf371-717 [facility] HospitalRBC Auto (Bld) [#/Vol]on 73-55-8680EXA (Bld) [#/Vol]Erythrocytes [#/volume] in Blood by Automated countLow4.20-5.40[facility] Hospitalerum or plasma albumin/globulin mass ratioon 06-21-2024 Albumin/Globulin [Mass ratio]Serum or plasma albumin/globulin mass ratio [facility] Hospitalerum or plasma anion gap determinationon 66-85-3143Engub gap [Moles/Vol]Serum or plasma anion gap determinationTwin City HospitalNo Panel Informationon 52-41-4285Ennllff Scruggs, ARRT 06/09/2024 1:08 PM L Inj/Asp: L glenohumeral on 06/05/2024 2:26 PM Indications: pain Details: 25 G needle, ultrasound-guided Medications: 2 mL betamethasone acetate-betamethasone sodium phosphate 6 (3-3) MG/ML Consent was given by the patient. [facility]XR Shoulder - left 2 Viewson 30-88-5212Estqzcl Result: 3 views left shoulder, Grashey/Zanca/outlet, taken today and saved to the permanent medical record are reviewed. No fractures. [facility] WNAtrium Health University CityXR Shoulder - left 2 Viewson 40-01-0543Pndvtrglq Study observation (narrative)[facility] HealthcareMain OR Intraoperative Recordon 25-67-7424Mehv OR Intraoperative RecordMain OR Intraoperative RecordNormalFisher [facility] w/ Auto Diffon 37-27-8145Sfrvahjcy/100 WBC (Bld)1.3 %Normal0.0-2.0 [facility] HospitalComment on above:Performed By: #### [id number] ####[facility] [address] [place] [address] Basophils/Leukocytes Auto (Bld) [Pure # fraction]0.1 E9/LNormal0.0-0.2Fpricilla [address] Lane Psychiatric CenterComment on above:Performed By: #### [id number] ####[address] [address]Tutkzapexmu (Bld) [#/Vol]0.2 E9/LNormal0.0-0.5FCommunity Regional Medical CenterComment on above: Performed By: #### [id number] ####[address] [address]Wlhniojcbfd/100 WBC (Bld)3.7 %Normal0.0-8.0[facility] HospitalComment on above:Performed By: #### [id number] ####[address] [address]Mdnqnixajhl distribution width (RBC) [Ratio]15.3 %High10.9-14.2FCommunity Regional Medical Center Comment on above:Performed By: #### [id number] ####[address] [address]Nqduccfmyt (Bld) [Volume fraction] 27.7 %Low34.0-46.0[facility] HospitalComment on above:Performed By: #### [id number] ####[address] [address]Jteibeaoxd (Bld) [Mass/Vol]9.6 g/dLLow12.0-16.0[facility] Comment on above:Performed By: #### [id number] ####[address] [address]Oherhidzbpv (Bld) [#/Vol]0.9 E9/LLow 1.0-4.0[facility] HospitalComment on above:Performed By: #### [id number] ####[address] [address] Lymphocytes/100 WBC (Bld)20.4 %Mgblop68.0-50.0[facility] HospitalComment on above:Performed By: #### [id number] ####[address] [address]ICR (RBC) [Entitic mass]33.7 pgNormal 27.0-34.0[facility] HospitalComment on above:Performed By: #### [id number] ####[address] [address]DANH (RBC) [Mass/Vol]34.6 g/qMAyumtd88.4-36.0[facility] HospitalComment on above:Performed By: #### [id number] ####[address] [address]GAR (RBC) [Entitic vol]97.3 uNPypjct33.0-100.0 [facility] HospitalComment on above:Performed By: #### [id number] ####[address] [address] Monocytes (Bld) [#/Vol]0.8 E9/LNormal0.2-1.0[facility] HospitalComment on above:Performed By: #### [id number] ####[address] [address]Maabkruipgi (Bld) [#/Vol]2.4 E9/L Normal2.0-7.5FCommunity Regional Medical CenterComment on above:Performed By: #### [id number] ####[address] [address]Ivsmwmpxcuq/100 WBC (Bld)55.1 %Dyxcmo79.0-75.0[facility] Comment on above:Performed By: #### [id number] ####[address] [address]Uhbdaupy719.0 E9/RBcqbdt685.0-500.0 [facility] HospitalComment on above:Performed By: #### [id number] ####[address] [address] Platelet mean volume (Bld) [Entitic vol]7.0 fLNormal6.4-10.8[facility] HospitalComment on above:Performed By: #### [id number] ####[facility] [address] [place], [place] [address]HJI (Bld) [#/Vol]2.9 E12/LLow 4.3-5.9[facility] HospitalComment on above:Performed By: #### [id number] ####[facility] [address] [place], [place] [address]FCS corrected for nucl RBC Auto (Bld) [#/Vol]4.3 E9/LNormal4.0-11.0[facility] HospitalComment on above:Result Comment: Peripheral smear review performed.Performed By: #### [id number] ####[facility] [address] [place], [place] [address]Vtzratgiq Instructionson 04-27-2024 Discharge InstructionsDischarge Instructions ZAIDIRADHA :1960 Visit Date:04/27/2024 Inpatient Discharge Instructions Your [...] appointment Appointment has already been scheduled Where: [place] [address]- [facility] (1) Medications What How Much When Instructions Next Dose New acetaminophen-oxycodone (Percocet 5 mg-325 mg oral tablet) See instructions 1-2 tab(s) Oral q4hr Pickup at [facility]/pharmacy #[id number] New celecoxib (CeleBREX 100 mg Cap) 1 Capsules By Mouth 2 times a day as needed for for pain [facility] New docusate (Colace 100 mg Cap) 1 Capsules By Mouth 2 times a day as needed for for constipation [facility] Unchanged buPROPion (Wellbutrin XL 300 mg/ [...] Tablets By Mouth Every day Pharmacy Information [facility]/pharmacy #[id number]: [address], [place] [id number] [phone] What How Much When Comments Stop Taking acetaminophen-hydrocodone (acetaminophen-hydrocodone 325 mg-5 mg oral tablet) 1 TabletsBy Mouth Every 6 hours [employer] [place], [place] [facility] AFTER YOUR SHOULDER ARTHROSCOPY [...] betadine and band-aids t (more content not included)...[facility] SystemComment on above:Result Comment: Electronically Signed By: Rebecca HARO, Rodger Vergara\.zari\Date and Time Signed: 04/27/24 10:11 EDTHEMATOLOGY Ordered By: SYSTEM SYSTEM on 86-32-2522Lsgiysiif/100 WBC (Bld)1.3 %Normal0.0 - 2.0 %Remisol HemeBasophils/Leukocytes Auto (Bld) [Pure # fraction]0.1 E9/LNormal 0.0 - 0.2 E9/LRemisol HemeEosinophils (Bld) [#/Vol]0.2 E9/LNormal0.0 - 0.5 E9/L Remisol HemeEosinophils/100 WBC (Bld)3.7 %Normal0.0 - 8.0 %Remisol Heme Erythrocyte distribution width (RBC) [Ratio]15.3 %High10.9 - 14.2 %Remisol Heme Hematocrit (Bld) [Volume fraction]27.7 %Low34.0 - 46.0 %Remisol HemeHemoglobin (Bld) [Mass/Vol]9.6 g/dLLow12.0 - 16.0 gm/dLRemisol HemeLymphocytes (Bld) [#/Vol]0.9 E9/LLow1.0 - 4.0 E9/LRemisol HemeLymphocytes/100 WBC (Bld)20.4 % Cyvevq95.0 - 50.0 %Remisol HemeMCH (RBC) [Entitic mass]33.7 mgMavzll67.0 - 34.0 pgRemisol HemeMCHC (RBC) [Mass/Vol]34.6 g/xRQnjdtm68.4 - 36.0 gm/dLRemisol Heme MCV (RBC) [Entitic vol]97.3 zOCssany20.0 - 100.0 fLRemisol HemeMonocytes (Bld) [#/Vol]0.8 E9/LNormal0.2 - 1.0 E9/LRemisol HemeMonocytes/100 WBC (Bld)19.5 %High 4.0 - 14.0 %Remisol HemeNeutrophils (Bld) [#/Vol]2.4 E9/LNormal2.0 - 7.5 E9/L Remisol HemeNeutrophils/100 WBC (Bld)55.1 %Vjlaze25.0 - 75.0 %Remisol Heme Eunrrhxq616.0 E9/PDrwpea724.0 - 500.0 E9/LRemisol HemePlatelet mean volume (Bld) [Entitic vol]7.0 fLNormal6.4 - 10.8 fLRemisol HemeRBC (Bld) [#/Vol]2.9 E12/LLow 4.3 - 5.9 E12/LRemisol HemeWBC corrected for nucl RBC Auto (Bld) [#/Vol]4.3 E9/L Normal4.0 - 11.0 E9/LRemisol HemeComment on above:Result Comment: Peripheral smear review performed.Inpatient Patient Summaryon [id number] Patient SummaryInpatient Patient Summary [address] [address] [facility] Clinical Discharge Instructions PERSON INFORMATION Name: RADHA ZAIDI [facility]#:[id number] PHYSICIANS Admitting Physician: Jordan Yuan DO Attending Physician: Jordan Yuan DO PCP: JOHN ASHBY DO Discharge Diagnosis: Comment: PATIENT EDUCATION INFORMATION Instructions: Iris Yuan - After Your Shoulder Arthroscopy (Custom) Medication Leaflets: Follow up: MEDICATION LIST New Medications [facility]/pharmacy #[id number], [address], [place] [id number], [phone] acetaminophen-oxycodone (Percocet 5 mg-325 mg oral tablet) 1-2 tab(s) Oral q4hr. Refills: 0. celecoxib (CeleBREX 100 mg Cap) 1 Capsules By Mouth 2 times a day as needed for pain. Refills: 0. docusate (Colace 100 mg Cap) 1 Capsules By Mouth 2 times a day as needed for constipation. Refills:0. Medications to Continue with No Changes Other [...] 1 Tablets By Mouth every 6 hours. Comment:[facility] Recordon 25-35-2232Kkfh OR PACU I RecordMain OR PACU I Record PACU Phase I Document Type FT Summary Primary Physician: Jordan Yuan DO Finalized Date/Time: 04/27/24 11:12:00 Pt. Name: RADHA ZAIDI Levy Carrillo/Sex: 1960 Female Med Rec #: [id number] Physician: Jordan Yuan DO Financial #: [id number] Pt. Type: A Room/Bed: [place] [address] Admit/Disch: 04/27/24 05:21:12 - Institution: Case Times [...] individualized perioperative plan of care The patient's rightto privacy is maintained The patient's value system, [...] with or improved from baseline levels established preoperativelyThe patient's cardiovascular status is consistent with or improved from baseline levels established preoperatively The patient's cardiovascular status is consistent with or improved from baseline levels established preoperatively The patient demonstrates and/or reports adequate pain control throughout the perioperative period The patient received appropriate medication(s), safely administered during the perioperativeperiod Acuity Level PACU I FT Entry 1 Start Time 04/27/24 10:10:00 Stop Time 04/27/24 11:19:00 Acuity Level Acuity Level I Last Modified By: Ling Kathleen RN 04/27/24 11:11:56 Finalized By: Ling Kathleen RN Document Signatures Signed By: Ling Kathleen RN 04/27/24 11:12[facility] Pre[facility] Recordon [id number] OR Preoperative RecordMain OR Preoperative Record PreOp Document Type FT Summary Primary Physician: Jordan Yuan DO Finalized Date/Time: 04/27/24 09:02:45 Pt. Name: ZAIDIRADHA/Sex: 1960 Female Med Rec #: [id number] Physician: Jordan Yuan DO Financial #: [id number] Pt. Type: A Room/Bed: [place] [address] Admit/Disch: 04/27/24 05:21:12 - Institution: Case Times [...] Signatures Signed By: Carli Gomez RN 04/27/24 09:02[facility] Report on [id number] ReportOperative Report Patient: RADHA ZAIDI Age: 63 years Sex: Female : 1960 Associated Diagnoses: None Author: Jordan Yuan DO DATE OF SURGERY: 04/27/2024 SURGEON: Jordan Yuan D.O. DIRECT SUPPORT PROFESSIONAL CAREGIVER: Jeff Marshall PREOPERATIVE DIAGNOSIS: Rotator cuff tear, [...] living, ability to sleep at night, and qualityof life. MRI was consistent with a full- thickness retracted tear of the supraspinatus with mild [...] into the beachchair position with all bony pr ominences well-padded. The head was secured in the padded munoz. Surgical timeout was performed with all required personnel present. The operative shoulder was examined and found to have full forward flexion, abduction, internal andexternal rotation. No anterior or posterior instability. The [...] upper half of the subscapularis with medial retraction.Full-thickness tear of the supraspinatus retracted posteromedially. Infraspinatus intact. 5. Rotator interval was free of pathology. Axillary recess free of loose bodies. No HAGL or RHAGL. The biceps stump was released from the superior labrum with arthroscopic scissors and the stump wasremoved with a grasper. The superior and anterior labrum were debrided with a motorized shaver. Thearm was forward elevated, internally rotated, and a [...] the greater tuberosity was cleared with the Temperance wand to improve visualization. An accessory anterosuperolateral portal was made with outside in technique using spinal needle localization. A passport cannula was placed. Soft tissuewas cleared from the lesser tuberosity with the Temperance wand. A bony bleeding bed was created with the arthroscopic bur on the reverse setting. The punch was placed to the anterior portal and used to create a socket for the corkscrew anchor at the upper portion of the lesser tuberosity. The anchor was inserted. The sutures were passed using th (more content not included)...[facility] SystemComment on above:Result Comment: Electronically Signed By: Jordan Yuan DO\.br\Date and Time Signed: 04/27/24 15:13 EDTOutpatient Surgery Discharge Instructionon [id number] Surgery Discharge InstructionOutpatient Surgery Discharge Instruction [place] [id number] Patient Discharge Instructions PERSON INFORMATION Name: RADHA ZAIDI Date of : 1960 Current Date: 04/27/2024 07:48:25 PHYSICIANS Admitting Physician: Jordan Yuan DO Discharge Diagnosis: RADHA ZAIDI has been given the following list of follow-up instructions, prescriptions, and patient education materials: IF UNABLE TO CONTACT YOUR PHYSICIAN AND YOU FEEL IT IS AN EMERGENCY, GO TO THE NEAREST EMERGENCY ROOM OR CALL 911 I, DYAN RADHA Lockett, have received the attached patient education materials/instructions and haveverbalized understanding: May we do a follow up call? Yes No I was present when discharge instructions were given Patient Signature Date Clinican/Nurse Signature Date Follow up: Pharmacy Information: You may receive a survey from [email or web address] asking you to rate your care experience. Your feedback is important and will help us understand what we do well and how we can improve the quality of care we provide to you, your loved ones and our community. It?s an honor to serve you. Thank you for choosing [facility] HERE ARE THE MEDICATION CHANGES THAT OCCURRED DURING YOUR HOSPITAL STAY New Medications [id number], [address], [place] [id number], [phone] acetaminophen-oxycodone (Percocet 5 mg-325 mg oral tablet) 1-2 tab(s) Oral q4hr. Refills: 0. celecoxib (CeleBREX 100 mg Cap) 1 Capsules By Mouth 2 times a day as needed for pain. Refills: 0. docusate (Colace 100 mg Cap) 1 Capsules By Mouth 2 times a day as needed for constipation. Refills:0. Medications to Continue with No Changes Other [...] every 6 hours. PATIENT EDUCATION INFORMATION Instructions: [place], [place] [facility] AFTER YOUR SHOULDER ARTHROSCOPY [...] place until follow up (more content not included)...[facility] SystemProceduralon 48-77-2053Bpwwhfwwaa Procedural Patient: RADHA ZAIDI Age: 63 years [...] patient, Number of attempts 1, Negative attempt ataspiration for blood, Medial and lateral spread of the anesthestic was observed, Periodic negative attempts at aspiration of blood were made as the local was injected, No pain or parathesia were elicited with injection of the anesthetic in the conscious patient, It was idetified that the correct ane sthetic agent was administered to the correct site. 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 Family History: Primary malignant neoplasm of prostate Father Acute myocardial infarction Mother Procedure history: Total shoulder replacement (25413734) on 04/06/2023 at 62 Years. Cervical laminectomy (1341863521). Amputation of finger (188586887). Removal of lung, Partial (59966). Open reduction and internal fixation of fracture Leg (818811123). Foot surgery (7584976468). Lumbar discectomy (864968370). Social History Social & Psychosocial Habits Alcoh (more content not included)...NormalHighsmith-Rainey Specialty Hospitaler [facility] Psychiatric CenterBasophils Auto (Bld) [#/Vol]on 11-94-1523Xbjodtnij (Bld) [#/Vol]0.0 10 3/uL0.0-0.1 [facility] HospitalBasophils/100 WBC Auto (Bld)on 03-27-2024 Basophils/100 WBC (Bld)0.7 %0.2-2.0[facility] Eosinophils/100 WBC Auto (Bld)on 44-49-4908Cpiynytgdmj/100 WBC (Bld)2.0 %0.9-7.0 [facility] HospitalErythrocyte distribution width Auto (RBC) [Ratio]on 38-01-9647Tmunxbvglys distribution width (RBC) [Ratio]14.7 %11.0-15.0 [facility] HospitalHematocrit Auto (Bld) [Volume fraction]on 18-80-5571Tslhzqexxz (Bld) [Volume fraction]30.8 %Low36.0-48.0[facility] HospitalHemoglobin [Mass/volume] in Bloodon 75-73-9849Lqmpdfljhp (Bld) [Mass/Vol]10.0 g/dLLow12.0-16.0[facility] HospitalLaboratory - Chemistry and Chemistry - challengeon 46-27-0193Qrhyxbodg (Vitamin B12) [Mass/Vol]172 pg/mHAuiyvyrf214-6259ArpzshcssTwin City HospitalComment on above:Performed at: - [facility] [id number] Director: Lito Matamoros PhD, Phone: [phone] - Hematology and Cell countson 98-22-8522Zwmkeekp granulocytes/100 WBC (Bld)0.5 %0.0-0.5FElyria Memorial HospitalLeukocytes [#/volume] corrected for nucleated erythrocytes in Blood by Automated counon 42-81-9965TII corrected for nucl RBC Auto (Bld) [#/Vol]4.4 10 3/uL4.0-11.0[facility] Lymphocytes Auto (Bld) [#/Vol]on 13-47-2517Ektbgydhktl (Bld) [#/Vol]1.9 10 3/uL 1.2-3.8[facility] HospitalLymphocytes/100 WBC Auto (Bld)on 69-95-8002Esacmjhimbo/100 WBC (Bld)42.3 %20.5-60.0[facility] NorthH Auto (RBC) [Entitic mass]on 41-16-1307GDS (RBC) [Entitic mass]31.9 pg 26.7-34.0[facility] HospitalMCHC Auto (RBC) [Mass/Vol]on 90-44-5142YINP (RBC) [Mass/Vol]32.5 g/dL29.9-35.2FElyria Memorial HospitalMCV Auto (RBC) [Entitic vol]on 09-16-2311TCY (RBC) [Entitic vol]98.4 fL 81.0-99.0[facility] HospitalMonocytes Auto (Bld) [#/Vol]on 74-35-7163Acfjldgfa (Bld) [#/Vol]0.6 10 3/uL0.3-0.8[facility] HospitalMonocytes/100 WBC Auto (Bld)on 07-00-9584Newxsnnet/100 WBC (Bld)12.7 %High 1.7-12.0[facility] HospitalNeutrophils Auto (Bld) [#/Vol]on 69-70-2840Xsxlhlwtjua (Bld) [#/Vol]1.8 10 3/uL1.4-6.5FElyria Memorial HospitalNeutrophils/100 WBC Auto (Bld)on 56-84-0567Skaoqtibrqx/100 WBC (Bld)41.8 % Low43.0-75.0[facility] HospitalNo Panel Informationon 03-27-2024 Eosinophils # (Auto)0.1 10 3/uL0.0-0.7FElyria Memorial HospitalFolate 14.00 ng/mL8.60-58.90[facility] HospitalImmature Granulocyte # (Auto)0.02 10 3/uL0.00-0.03[facility] HospitalPlatelet mean volume Auto (Bld) [Entitic vol]on 15-71-6293Bjyzdrdv mean volume (Bld) [Entitic vol] 9.3 fLLow9.5-13.5FElyria Memorial HospitalPlatelets Auto (Bld) [#/Vol]on 52-17-6219Hyrgcksjk (Bld) [#/Vol]235 10 3/uV758-507NovraetgyTwin City HospitalRBC Auto (Bld) [#/Vol]on 91-77-4707FND (Bld) [#/Vol]3.13 10 6/uLLow 4.20-5.40[facility] HospitalReticulocytes/100 RBC Auto (Bld)on 23-53-2369Bjcjggxmvoxiz/100 RBC (Bld)2.37 %0.60-3.10Brown Memorial Hospitalerum or plasma methylmalonate measurement (moles/volume)on 03-27-2024 Methylmalonate [Moles/Vol]195 nmol/L0-378[facility] Comment on above:This test was developed and its performance characteristicsdetermined by [employer]. It has not been cleared orapproved by the Food and Drug Administration.Performed at: [address] [id number] Director: Goldy Aparicio MD, Phone: [phone] Chest 2 Viewson 68-29-5786UY Chest 2 ViewsExam Date/Time: 03/19/2024 12:57 EDT Reason for Exam: [...] Ka,r in mGy = na DAP = naNormalGood Samaritan HospitalBMPon 73-75-8551Fernn gap [Moles/Vol]9 mmol/LNormal6-16[facility] HospitalComment on above:Performed By: #### [id number] #### [facility] [address], [place] [address]Moyiifl [Mass/Vol]9.1 mg/dLNormal8.9-11.1FCommunity Regional Medical CenterComment on above:Performed By: #### [id number] #### [facility] [address], [place] [address]Ffztqmgw [Moles/Vol]109 mmol/KPxilyi106-351WmgddiGood Samaritan HospitalComment on above:Performed By: #### [id number] #### [facility] [address], [place] [address]II6 [Moles/Vol]27 mmol/ECypvpe64-87YmnmqsGood Samaritan Hospital Comment on above:Performed By: #### [id number] #### [facility] [address], [place] [address]Fytpllxhfc [Mass/Vol]1.1 mg/dLNormal0.5-1.3FCommunity Regional Medical CenterComment on above:Performed By: #### [id number] #### [facility] [address], [place] [address]Rzoiyon [Mass/Vol]85 mg/tJTuudjv02-650QhxyveGood Samaritan HospitalComment on above:Performed By: #### [id number] #### [facility] [address], [place] [address]Spbiuxmgy [Moles/Vol]3.8 mmol/LNormal3.5-5.3FCommunity Regional Medical CenterComment on above:Performed By: #### [id number] #### [facility] [address], [place] [address]Twolbc [Moles/Vol]141 mmol/FZzljwb834-223MetvjyGood Samaritan HospitalComment on above:Performed By: #### [id number] #### [facility] [address], [place] [address]Tvkf nitrogen [Mass/Vol]17 mg/dLNormal5-21[facility] HospitalComment on above:Performed By: #### [id number] #### [facility] [address] [place] [address]Vgdv nitrogen/Creatinine [Mass ratio]16 No ZsjbdLzxawp61-16 [facility] HospitalComment on above:Performed By: #### [id number] #### [facility] [address] [place] [address]Q w/ Auto Diffon 92-45-7532Upcqcicql/100 WBC (Bld)0.6 %Normal 0.0-2.0[facility] HospitalComment on above:Performed By: #### [id number] #### [facility] [address], [place] [address]Sqdsbxlis/Leukocytes Auto (Bld) [Pure # fraction]0.0 E9/LNormal 0.0-0.2FCommunity Regional Medical CenterComment on above:Performed By: #### [id number] #### [facility] [address] [place] [address]Nmcmsjjjajz (Bld) [#/Vol]0.1 E9/LNormal0.0-0.5FCommunity Regional Medical CenterComment on above:Performed By: #### [id number] #### [facility] [address] [place] [address]Cwzxbujugtg/100 WBC (Bld)1.6 %Normal0.0-8.0[facility] HospitalComment on above:Performed By: #### [id number] #### [facility] [address] [place] [address]Ycjchkbufiv distribution width (RBC) [Ratio]14.7 %High10.9-14.2 [facility] HospitalComment on above:Performed By: #### [id number] #### [facility] [address] [place] [address]Ehtaxjzpou (Bld) [Volume fraction]27.9 %Low34.0-46.0[facility] HospitalComment on above:Performed By: #### [id number] #### [facility] [address] [place] [address]Kjcwnurzqj (Bld) [Mass/Vol]9.8 g/dLLow12.0-16.0[facility] HospitalComment on above:Performed By: #### [id number] #### [facility] [address] [place] [address]Yyhoamzuzva (Bld) [#/Vol]1.1 E9/LNormal1.0-4.0[facility] HospitalComment on above:Performed By: #### [id number] #### [facility] [address] [place] [address]Gbfkfojafmz/100 WBC (Bld)28.9 %Tfjwdl63.0-50.0[facility] HospitalComment on above:Performed By: #### [id number] #### [facility] [address] [place] [address]MVX (RBC) [Entitic mass]33.8 htQbtojt12.0-34.0[facility] HospitalComment on above:Performed By: #### [id number] #### [facility] [address] [place] [address]IGDI (RBC) [Mass/Vol]35.1 g/fNWnwejm52.4-36.0[facility] HospitalComment on above:Performed By: #### [id number] #### [facility] [address] [place] [address]FJH (RBC) [Entitic vol]96.2 iVGhboem89.0-100.0[facility] HospitalComment on above:Performed By: #### [id number] #### [facility] [address] [place] [address]Insjnikxe (Bld) [#/Vol]0.6 E9/LNormal0.2-1.0[facility] HospitalComment on above:Performed By: #### [id number] #### [facility] [address] [place] [address]Cqbwqihipxj (Bld) [#/Vol]2.0 E9/LNormal2.0-7.5FCommunity Regional Medical CenterComment on above:Performed By: #### [id number] #### [facility] [address] [place] [address]Gwzvjddvryw/100 WBC (Bld)52.8 %Wtvsre85.0-75.0[facility] HospitalComment on above:Performed By: #### [id number] #### [facility] [address] [place] [address]Vrnfuzuc169.0 E9/JGmdmna961.0-500.0[facility] Comment on above:Performed By: #### [id number] #### [facility] [address] [place] [address]Eiyjeeqq mean volume (Bld) [Entitic vol]7.0 fLNormal6.4-10.8 [facility] HospitalComment on above:Performed By: #### [id number] #### [facility] [address], [place] [address]YOQ (Bld) [#/Vol]2.9 E12/LLow4.3-5.9[facility] Comment on above:Performed By: #### [id number] #### [facility] [address], [place] [address]TBA corrected for nucl RBC Auto (Bld) [#/Vol]3.8 E9/LLow 4.0-11.0[facility] HospitalComment on above:Result Comment: Peripheral smear review performed.Performed By: #### [id number] #### [facility] [address], [place] [address]XORYEKMZTPiyxnuv By: SYSTEM SYSTEM on 30-72-5451Zbbhc gap [Moles/Vol]9 mmol/LNormal6 - 16 mEq/LRemisol ChemCalcium [Mass/Vol]9.1 mg/dL Normal8.9 - 11.1 mg/dLRemisol ChemChloride [Moles/Vol]109 mmol/TTkzhnj471 - 111 mmol/LRemisol ChemCO2 [Moles/Vol]27 mmol/RHzgock45 - 31 mmol/LRemisol Chem Creatinine [Mass/Vol]1.1 mg/dLNormal0.5 - 1.3 mg/dLRemisol UwamtRQC13 mL/min/1.73 m2Low>=59mL/min/1.73 g7Fqcygtr ChemGlucose [Mass/Vol]85 mg/dLNormal 55 - 199 mg/dLRemisol ChemPotassium [Moles/Vol]3.8 mmol/LNormal3.5 - 5.3 mmol/L Remisol ChemSodium [Moles/Vol]141 mmol/DHemvoj544 - 145 mmol/LRemisol ChemUrea nitrogen [Mass/Vol]17 mg/dLNormal5 - 21 mg/dLRemisol ChemUrea nitrogen/Creatinine [Mass ratio]16 mg/srUyqiab05 - 20Remisol ChemHEMATOLOGY Ordered By: SYSTEM SYSTEM on 03-96-5609Ezxozodpc/100 WBC (Bld)0.6 %Normal0.0 - 2.0 %Remisol HemeBasophils/Leukocytes Auto (Bld) [Pure # fraction]0.0 E9/LNormal 0.0 - 0.2 E9/LRemisol HemeEosinophils (Bld) [#/Vol]0.1 E9/LNormal0.0 - 0.5 E9/L Remisol HemeEosinophils/100 WBC (Bld)1.6 %Normal0.0 - 8.0 %Remisol Heme Erythrocyte distribution width (RBC) [Ratio]14.7 %High10.9 - 14.2 %Remisol Heme Hematocrit (Bld) [Volume fraction]27.9 %Low34.0 - 46.0 %Remisol HemeHemoglobin (Bld) [Mass/Vol]9.8 g/dLLow12.0 - 16.0 gm/dLRemisol HemeLymphocytes (Bld) [#/Vol]1.1 E9/LNormal1.0 - 4.0 E9/LRemisol HemeLymphocytes/100 WBC (Bld)28.9 % Zcrsjf10.0 - 50.0 %Remisol HemeMCH (RBC) [Entitic mass]33.8 faGidzip03.0 - 34.0 pgRemisol HemeMCHC (RBC) [Mass/Vol]35.1 g/oOLidccd36.4 - 36.0 gm/dLRemisol Heme MCV (RBC) [Entitic vol]96.2 zBKvukyg43.0 - 100.0 fLRemisol HemeMonocytes (Bld) [#/Vol]0.6 E9/LNormal0.2 - 1.0 E9/LRemisol HemeMonocytes/100 WBC (Bld)16.1 %High 4.0 - 14.0 %Remisol HemeNeutrophils (Bld) [#/Vol]2.0 E9/LNormal2.0 - 7.5 E9/L Remisol HemeNeutrophils/100 WBC (Bld)52.8 %Rgjbyl34.0 - 75.0 %Remisol Heme Lggtzbhj163.0 E9/GHhjgkd823.0 - 500.0 E9/LRemisol HemePlatelet mean volume (Bld) [Entitic vol]7.0 fLNormal6.4 - 10.8 fLRemisol HemeRBC (Bld) [#/Vol]2.9 E12/LLow 4.3 - 5.9 E12/LRemisol HemeWBC corrected for nucl RBC Auto (Bld) [#/Vol]3.8 E9/L Low4.0 - 11.0 E9/LRemisol HemeComment on above:Result Comment: Peripheral smear review performed.eGFRon 45-86-4702eGMB78 mL/min/1.73 m2Low>=[address] [facility] [address] Psychiatric CenterComment on above:Order Comment: Order added by Discern Expert. Performed By: #### [id number] #### [facility] [address], [place] [address]Lqedsheue Auto (Bld) [#/Vol]on 80-19-0168Ohrbfkxwy (Bld) [#/Vol]0.0 10 3/uL0.0-0.1FElyria Memorial HospitalBasophils/100 WBC Auto (Bld)on 22-60-8142Ograkuate/100 WBC (Bld)0.8 %0.2-2.0[facility] HospitalEosinophils/100 WBC Auto (Bld)on 56-89-4897Wosfecmpjhs/100 WBC (Bld)1.5 % 0.9-7.0[facility] HospitalErythrocyte distribution width Auto (RBC) [Ratio]on 27-63-3111Jyebozhimca distribution width (RBC) [Ratio]15.1 %High 11.0-15.0[facility] HospitalHematocrit Auto (Bld) [Volume fraction]on 19-27-6073Nwlbtocjgj (Bld) [Volume fraction]35.4 %Low36.0-48.0 [facility] HospitalHemoglobin [Mass/volume] in Bloodon 02-14-2024 Hemoglobin (Bld) [Mass/Vol]11.0 g/dLLow12.0-16.0[facility] HospitalIron binding capacity [Mass/volume] in Serum or Plasmaon 89-29-7255Giuu binding capacity [Mass/Vol]303.0 ug/dL250.0-450.0[facility] HospitalIron saturation [Mass Fraction] in Serum or Plasmaon 07-69-1033Irai saturation [Mass fraction]81.2 %[facility] HospitalLaboratory - Chemistry and Chemistry - challengeon 30-43-3027Nomlpbfop (Vitamin B12) [Mass/Vol]225.0 pg/mL193.0-986.0[facility] HospitalFerritin [Mass/Vol]338.0 ng/mLHigh8.0-252.0[facility] HospitalIron [Mass/Vol]246.0 ug/hALgvi15.0-170.0[facility] HospitalLaboratory - Hematology and Cell countson 13-55-6682Cajxzohg granulocytes/100 WBC (Bld)0.8 % High0.0-0.5FElyria Memorial HospitalLeukocytes [#/volume] corrected for nucleated erythrocytes in Blood by Automated counon 95-24-1022GGQ corrected for nucl RBC Auto (Bld) [#/Vol]4.7 10 3/uL4.0-11.0[facility] Lymphocytes Auto (Bld) [#/Vol]on 92-29-3350Kremosbgprl (Bld) [#/Vol]2.3 10 3/uL 1.2-3.8[facility] HospitalLymphocytes/100 WBC Auto (Bld)on 97-53-7842Wzljdllhven/100 WBC (Bld)48.7 %20.5-60.0[facility] Auto (RBC) [Entitic mass]on 57-82-8812KTX (RBC) [Entitic mass]31.9 pg 26.7-34.0[facility] HospitalMCHC Auto (RBC) [Mass/Vol]on 29-77-0183JYMS (RBC) [Mass/Vol]31.1 g/dL29.9-35.2FElyria Memorial HospitalMCV Auto (RBC) [Entitic vol]on 94-19-5844BSC (RBC) [Entitic vol]102.6 fL High81.0-99.0[facility] HospitalMonocytes Auto (Bld) [#/Vol]on 01-43-4795Panfxdpaj (Bld) [#/Vol]0.6 10 3/uL0.3-0.8[facility] HospitalMonocytes/100 WBC Auto (Bld)on 43-95-4352Cjbganzuz/100 WBC (Bld)13.3 %High 1.7-12.0[facility] HospitalNeutrophils Auto (Bld) [#/Vol]on 62-39-8791Yhdgggexytv (Bld) [#/Vol]1.7 10 3/uL1.4-6.5FElyria Memorial HospitalNeutrophils/100 WBC Auto (Bld)on 09-93-1041Kyivlmnnask/100 WBC (Bld)34.9 % Low43.0-75.0[facility] HospitalNo Panel Informationon 02-14-2024 Eosinophils # (Auto)0.1 10 3/uL0.0-0.7FElyria Memorial HospitalImmature Granulocyte # (Auto)0.04 10 3/uLHigh0.00-0.03[facility] Folate9.40 ng/mL8.60-58.90[facility] HospitalPlatelet mean volume Auto (Bld) [Entitic vol]on 70-01-9784Heecavkb mean volume (Bld) [Entitic vol]9.1 fLLow9.5-13.5FElyria Memorial HospitalPlatelets Auto (Bld) [#/Vol]on 83-91-4631Vuebrcexj (Bld) [#/Vol]197 10 3/uX708-912FjzpxnemwTwin City HospitalRBC Auto (Bld) [#/Vol]on 12-68-1815JNU (Bld) [#/Vol]3.45 10 6/uLLow 4.20-5.40[facility] HospitalBasophils Auto (Bld) [#/Vol]on 84-51-1769Csndnyvcg (Bld) [#/Vol]0.0 10 3/uL0.0-0.1FElyria Memorial HospitalBasophils/100 WBC Auto (Bld)on 48-76-6861Nvkqogojj/100 WBC (Bld)0.8 % 0.2-2.0[facility] HospitalEosinophils/100 WBC Auto (Bld)on 48-56-8930Ogtzuzcatgw/100 WBC (Bld)2.1 %0.9-7.0[facility] Erythrocyte distribution width Auto (RBC) [Ratio]on 66-48-4523Sttrtslvmtg distribution width (RBC) [Ratio]14.2 %11.0-15.0[facility] Estimated glomerular filtration rate (GFR) non- Americanon 02-02-2024 GFR/1.73 sq M.predicted among non-blacks MDRD (S/P/Bld) [Vol rate/Area]51 mL/min/{1.73_m2}Low>=60[facility] HospitalGlobulin Calc (S) [Mass/Vol]on 72-37-3031Zcwxzldu (S) [Mass/Vol]2.9 g/dLTwin City HospitalHematocrit Auto (Bld) [Volume fraction]on 41-19-7404Diskymstjf (Bld) [Volume fraction]31.9 %Low36.0-48.0[facility] HospitalHemoglobin [Mass/volume] in Bloodon 22-45-4946Obhiejpvkl (Bld) [Mass/Vol]10.2 g/dLLow 12.0-16.0[facility] HospitalLaboratory - Chemistry and Chemistry - challengeon 83-77-8583Vkkextv [Mass/Vol]3.9 g/dL3.4-5.0[facility] HospitalALP [Catalytic activity/Vol]48 U/H76-747KboqgzmjoTwin City HospitalALT [Catalytic activity/Vol]20 U/K52-28JkldfxqwhTwin City Hospital AST [Catalytic activity/Vol]23 U/U49-52YaowzwxoxT[facility] City Hospital Bilirubin [Mass/Vol]0.5 mg/dL0.2-1.0[facility] HospitalCalcium [Mass/Vol]9.1 mg/dL8.5-10.1FElyria Memorial HospitalChloride [Moles/Vol] 108 mmol/BKnws33-726YqgyxammbTwin City HospitalCO2 [Moles/Vol]24.8 mmol/L 21.0-32.0[facility] HospitalCreatinine [Mass/Vol]1.09 mg/dLHigh 0.55-1.02[facility] HospitalGFR/1.73 sq M.predicted MDRD (S/P/Bld) [Vol rate/Area]mL/min/{1.73_m2}>=60[facility] HospitalGlucose [Mass/Vol]87 mg/zP72-427MouqiistjTwin City HospitalPotassium [Moles/Vol] 3.9 mmol/L3.5-5.1FElyria Memorial HospitalProtein [Mass/Vol]6.8 g/dL 6.4-8.2FOhioHealth [facility] Hospitalodium [Moles/Vol]144 mmol/B806-154 [facility] HospitalUrea nitrogen [Mass/Vol]17.0 mg/dL7.0-18.0 [facility] HospitalUrea nitrogen/Creatinine [Mass ratio]15.6 mg/mg [facility] HospitalLaboratory - Hematology and Cell countson 75-05-9206ZIA (Bld) [Velocity]12 mm/h<=30[facility] Immature granulocytes/100 WBC (Bld)0.5 %0.0-0.5FElyria Memorial Hospital Leukocytes [#/volume] corrected for nucleated erythrocytes in Blood by Automated counon 17-02-7302TSV corrected for nucl RBC Auto (Bld) [#/Vol]3.8 10 3/uLLow 4.0-11.0[facility] HospitalLymphocytes Auto (Bld) [#/Vol]on 22-48-5607Xbremuhdvrr (Bld) [#/Vol]1.5 10 3/uL1.2-3.8[facility] HospitalLymphocytes/100 WBC Auto (Bld)on 79-44-1722Fyogxiucvck/100 WBC (Bld)40.3 % 20.5-60.0[facility] HospitalMCH Auto (RBC) [Entitic mass]on 50-31-9294LDP (RBC) [Entitic mass]31.7 pg26.7-34.0[facility] HospitalMCHC Auto (RBC) [Mass/Vol]on 91-34-8371OOYC (RBC) [Mass/Vol]32.0 g/dL 29.9-35.2FElyria Memorial HospitalMCV Auto (RBC) [Entitic vol]on 26-37-3013VUW (RBC) [Entitic vol]99.1 hHZdqy89.0-99.0[facility] HospitalMonocytes Auto (Bld) [#/Vol]on 59-34-2067Hxrrwfppm (Bld) [#/Vol]0.6 10 3/uL0.3-0.8[facility] HospitalMonocytes/100 WBC Auto (Bld)on 45-42-7183Okhonknre/100 WBC (Bld)16.1 %High1.7-12.0[facility] HospitalNeutrophils Auto (Bld) [#/Vol]on 42-23-9536Peqvuzecxbv (Bld) [#/Vol]1.5 10 3/uL1.4-6.5FElyria Memorial HospitalNeutrophils/100 WBC Auto (Bld)on 56-83-3126Rkbvgrxsnrz/100 WBC (Bld)40.2 %Low43.0-75.0[facility] HospitalNo Panel Informationon 22-85-2060Xdltltihwnf # (Auto)0.1 10 3/uL0.0-0.7 [facility] HospitalImmature Granulocyte # (Auto)0.02 10 3/uL 0.00-0.03[facility] HospitalPlatelet mean volume Auto (Bld) [Entitic vol]on 94-51-8808Sqknnchx mean volume (Bld) [Entitic vol]9.3 fLLow 9.5-13.5FElyria Memorial HospitalPlatelets Auto (Bld) [#/Vol]on 41-59-3133Ijcivnagq (Bld) [#/Vol]236 10 3/nL147-870HvaplkqedTwin City HospitalRBC Auto (Bld) [#/Vol]on 46-90-0699VEB (Bld) [#/Vol]3.22 10 6/uLLow 4.20-5.40[facility] Hospitalerum or plasma albumin/globulin mass ratioon 19-58-4603Visbcrh/Globulin [Mass ratio]1.3 {ratio}[facility] Memorial Hospitalerum or plasma anion gap determinationon 88-19-0678Fwfmb gap [Moles/Vol]15.1 mmol/LFElyria Memorial HospitalXR Shoulder - right 2 Viewson 19-82-4277Hsaetdq Result: 4 views right shoulder, Grashey/Zanca/outlet/axillary, taken today and saved to the permanent medical record. Prosthesis is unchanged in position and alignment. Fracture at the base of the acromion unchanged in appearance.[facility]XR Shoulder - right 2 Viewson 00-67-5834Pmxtcpsle Study observation (narrative)[facility] UPPER EXTREMITY W/O CONTRAST RIGHTon 09-08-2023 Exam Date/Time: 09/06/2023 17:13 EST Reason for [...] Coleman Fields MD Transcribed by: DANISHA Technologist: [facility]AMPUSRadiology, Radiologist, - 09/08/2023 Exam Date/Time: 09/06/2023 17:13 [...] Fields MD Transcribed by: DANISHA Technologist: ARNUL[facility] DORSEY HealthcareSD UPPER EXTREMITY W/O CONTRAST RIGHTOrdered By: Radiologist Radiology on 40-86-5205XFHO [employer] Work Phone: ct Upper Extremity w/o Contrast Righton 24-30-2460KC Upper Extremity w/o Contrast RightExam Date/Time: 09/06/2023 17:13 EST Reason for Exam: [...] Coleman Fields MD Transcribed by: DANISHA Technologist: [facility] LAB MISCELLANEOUS-LCon 69-05-9960JLLR LAB MISCELLANEOUSCOMMENTSamaritan HospitalComment on above:Test Ordered: [id number] Interleukin-6, Serum Interleukin-6, Serum <2.5 pg/mL Reference [...] endotracheal intubation or mechanical ventilation. Performed at: [facility] [id number] PhD Saturnino Morse [facility] [place] [id number] Area District Hospital TEST NAMEinterleukin [address] [place] [address] Original Ordering Provider: DO Jordan Roth [facility] Miscellaneous-LCon 08-56-8453Iuq MiscellaneousCOMMENTInvalid Interpretation Code [facility]aritan HospitalComment on above:Result Comment: Test Ordered: [id number] Interleukin-6, Serum Interleukin-6, Serum <2.5 pg/mL Reference [...] endotracheal intubation or mechanical ventilation. Performed at: [address] [id number] PhD Saturnino MorsePerformed By: #### [id number] ####[facility] [address] [place], [place]CBC w/ Auto Diffon 01-87-3441Qtefmytr Absolute0.0 E9/LNormal0.0-0.2[facility] Comment on above:Performed By: #### 9951695, 1325759, 88769847 #### [facility] [address], [place] [address]Nnmokodol/100 WBC (Bld)0.4 %Normal0.0-2.0FishWestern Maryland Hospital CenterComment on above:Performed By: #### 3843083, 6144399, 05884987 #### [facility] [address], [place] [address]Bgl Absolute0.0 E9/LNormal0.0-0.5FCommunity Regional Medical Center Comment on above:Performed By: #### 5243429, 2308794, 05289880 #### [facility] [address] [place] [address] 21583Goqwzqjnpht/100 WBC (Bld)0.2 %Normal0.0-8.0[facility]aritan HospitalComment on above:Performed By: #### 7119616, 3460458, 10828153 #### [facility] [address] [place] [address]32[address]Yarxjivhlve distribution width (RBC) [Ratio]14.3 %High10.9-14.2 [facility] HospitalComment on above:Performed By: #### 4769605, 1262954, 44207044 #### [facility] [address] [place] [address]3761Cxzreixpsz (Bld) [Volume fraction]40.0 %Wuspzf08.0-46.0[facility]itan HospitalComment on above:Performed By: #### 1087788, 9672819, 71858962 #### [facility] [address] [place] [address] 09472Jvbaitnozp (Bld) [Mass/Vol]12.7 g/mBSoqilq10.0-16.0[facility] HospitalComment on above:Performed By: #### 1139953, 7904954, 41538440 #### [facility] [address] [place] [address] 25124Woszx Absolute0.9 E9/LLow1.0-4.0[facility] Comment on above:Performed By: #### 4255592, 4996158, 98386028 #### [facility] [address] [place] [address] 91826Fpvqfpxjuuj/100 WBC (Bld)25.2 %Qmdney43.0-50.0[facility]itan HospitalComment on above:Performed By: #### 4891825, 7169401, 48850005 #### [facility] [address], [place] [address]ZLJ (RBC) [Entitic mass]30.6 lnXmguaz50.0-34.0[facility] HospitalComment on above:Performed By: #### 9113703, 9615959, 19932093 #### [facility] [address] [place], [place] [address]HC (RBC) [Mass/Vol]31.7 g/iWVepbhn29.4-36.0[facility] HospitalComment on above:Performed By: #### 7271377, 9259548, 97826707 #### [facility] [address] [place], [place] [address]V (RBC) [Entitic vol]96.5 iYBplbih81.0-100.0[facility] HospitalComment on above:Performed By: #### 7258926, 4792081, 03547759 #### [facility] [address] [place] [address]Wwla Absolute0.3 E9/LNormal0.2-1.0[facility] Comment on above:Performed By: #### 3499391, 4454434, 80143726 #### [facility] [address] [place] [address]Jddkbfqzr/100 WBC (Bld)7.3 %Normal4.0-14.0[facility] HospitalComment on above:Performed By: #### 8621742, 3535501, 42681146 #### [facility] [address] [place] [address]Yrdsle Absolute2.3 E9/LNormal2.0-7.5FCommunity Regional Medical Center Comment on above:Performed By: #### 8900779, 1395325, 52605773 #### [facility] [address] [place] [address] 07493Uqzxaz Auto66.9 %Smenar71.0-75.0[facility] Comment on above:Performed By: #### 7323164, 1184038, 60421484 #### [facility] [address], [place] [address]Xbhzezru051.0 E9/FYppwlz752.0-500.0[facility] Comment on above:Performed By: #### 1312393, 9586130, 32890687 #### [facility] [address] [place] [address] 31861Uyclcvdk mean volume (Bld) [Entitic vol]7.4 fLNormal6.4-10.8 [facility] HospitalComment on above:Performed By: #### 9183224, 3014740, 23968269 #### [facility] [address] [place] [address] 54960QXG9.1 E12/LLow4.3-5.9[facility] HospitalComment on above:Performed By: #### 6204031, 1456683, 94143027 #### [facility] [address] [place] [address] 39416MFY4.4 E9/LLow4.0-11.0[facility] HospitalComment on above:Performed By: #### 8700930, 4184393, 10064568 #### [facility] [address] [place] [address] 29113KSMOIYNCSYykxkbi By: SYSTEM SYSTEM on 94-96-1893ZLPrb/dLNormal <=1.9mg/dLRemisol ChemCRPon 16-39-5599EDN [Mass/Vol]mg/LNormal<=1.9[facility]itan HospitalComment on above:Performed By: #### 9416108, 0150543, 23263679 #### [facility] [address] [place] [address]RI UPPER EXTREMITY W/O CONTRAST RIGHTon 92-29-2209Fqtpkkxri Study observation (narrative)Samaritan HospitalConsent for Treatmenton 09-06-2023 Consent for [id number]#1.00TIFFNormal [facility] HospitalHEMATOLOGYOrdered By: SYSTEM SYSTEM on 09-06-2023 Basophil Absolute0.0 E9/LNormal0.0 - 0.2 E9/LRemisol HemeBasophils/100 WBC (Bld) 0.4 %Normal0.0 - 2.0 %Remisol HemeEos Absolute0.0 E9/LNormal0.0 - 0.5 E9/L Remisol HemeEosinophils/100 WBC (Bld)0.2 %Normal0.0 - 8.0 %Remisol Heme Erythrocyte distribution width (RBC) [Ratio]14.3 %High10.9 - 14.2 %Remisol Heme Hematocrit (Bld) [Volume fraction]40.0 %Megddh73.0 - 46.0 %Remisol Heme Hemoglobin (Bld) [Mass/Vol]12.7 g/cPJpbgds57.0 - 16.0 gm/dLRemisol HemeLymph Absolute0.9 E9/LLow1.0 - 4.0 E9/LRemisol HemeLymphocytes/100 WBC (Bld)25.2 % Moqvih08.0 - 50.0 %Remisol HemeMCH (RBC) [Entitic mass]30.6 ayGqgysr37.0 - 34.0 pgRemisol HemeMCHC (RBC) [Mass/Vol]31.7 g/nOAvniqb13.4 - 36.0 gm/dLRemisol Heme MCV (RBC) [Entitic vol]96.5 dYTedinr20.0 - 100.0 fLRemisol HemeMono Absolute0.3 E9/LNormal0.2 - 1.0 E9/LRemisol HemeMonocytes/100 WBC (Bld)7.3 %Normal4.0 - 14.0 %Remisol HemeNeutro Absolute2.3 E9/LNormal2.0 - 7.5 E9/LRemisol HemeNeutro Auto 66.9 %Uxcuts35.0 - 75.0 %Remisol MrbdAwzkaipg530.0 E9/BDqwwfd248.0 - 500.0 E9/L Remisol HemePlatelet mean volume (Bld) [Entitic vol]7.4 fLNormal6.4 - 10.8 fL Remisol HemeRBC4.1 E12/LLow4.3 - 5.9 E12/LRemisol HemeWBC3.4 E9/LLow4.0 - 11.0 E9/LRemisol HemeHEMATOLOGYOrdered By: Petr Mack on 66-91-3928ZID (Bld) [Velocity]14 mm/hNormal0 - 34 mm/hrFT HemeAutoSSLab Miscellaneous-LCon 28-21-4768Ggdw Wjfq949846Zdbtefg Interpretation [facility] Comment on above:Performed By: #### [id number] ####[facility] Xoohcodsup[address] [place], [place]ZQ[address]Jlbq Nameinterleukin 6Invalid Interpretation [facility] HospitalComment on above:Performed By: #### [id number] ####[facility] Qzilhocvug[address] Ophird[address] Rodriguezutica psychiatric centerolvinLIVERMORE, [place]JH[address]Jgfrmyhjx Orderon 42-09-2656Vjjnqrzkf Order [id number]#1.00TIFMercy Health Anderson HospitalReference Laboratory TestingOrdered By: Jojo Gonsales on 23-48-6101Ndtd Cjbr408756 1Invalid Interpretation [facility] SendOutsSSTest Nameinterleukin 6 Invalid Interpretation [facility] SendOutsSSSed Rate Automatedon 02-25-1578RPK (Bld) [Velocity]14 mm/hNormal0-34[facility] HospitalComment on above: Performed By: #### 1983204, 1533249, 98460622 #### [facility] Laboratory [address] [place], [place] [address]Tnddpksph Orderon 21-22-8313Ytjqsluqq Order [id number]#1.00[facility] CampusBasophils Auto (Bld) [#/Vol]on 84-60-2158Degmaskof (Bld) [#/Vol]0.0 10 3/uL0.0-0.1FElyria Memorial HospitalBasophils/100 WBC Auto (Bld)on 42-29-2114Rjclfuqus/100 WBC (Bld)0.8 %0.2-2.0[facility] Cholesterol in LDL Calc [Mass/Vol]on 33-87-0283Dohjvhagcjb in LDL [Mass/Vol] 152.0 mg/dLTwin City HospitalComment on above:<100 mg/dl LVWMDSF999-416 mg/dl NEAR OR ABOVE YCDQCYN802-524 mg/dl BORDERLINE NCGP396-689 mg/dl HIGH>190 mg/dl VERY HIGHCholesterol in VLDL Calc [Mass/Vol]on 08-30-2023 Cholesterol in VLDL [Mass/Vol]20.2 mg/dLTwin City Hospital Eosinophils/100 WBC Auto (Bld)on 31-59-1363Bqworvcedif/100 WBC (Bld)4.2 %0.9-7.0 [facility] HospitalErythrocyte distribution width Auto (RBC) [Ratio]on 60-35-4149Rrzgrcpgngv distribution width (RBC) [Ratio]13.4 %11.0-15.0 [facility] HospitalEstimated glomerular filtration rate (GFR) non- Americanon 32-25-1886GKV/1.73 sq M.predicted among non-blacks MDRD (S/P/Bld) [Vol rate/Area]59 mL/min/{1.73_m2}>=60[facility] HospitalGlobulin Calc (S) [Mass/Vol]on 34-54-8363Cnuqvfjv (S) [Mass/Vol]3.4 g/dL [facility] HospitalHematocrit Auto (Bld) [Volume fraction]on 18-65-9354Dakqzfwsmp (Bld) [Volume fraction]39.5 %36.0-48.0[facility] HospitalHemoglobin [Mass/volume] in Bloodon 42-06-2576Thdtppchjp (Bld) [Mass/Vol]12.5 g/dL12.0-16.0[facility] HospitalLaboratory - Chemistry and Chemistry - challengeon 64-46-3565Xtptrvu [Mass/Vol]3.7 g/dL 3.4-5.0[facility] HospitalALP [Catalytic activity/Vol]45 U/L46-116 [facility] HospitalALT [Catalytic activity/Vol]23 U/L14-59 [facility] HospitalAST [Catalytic activity/Vol]21 U/L15-37 [facility] HospitalBilirubin [Mass/Vol]0.4 mg/dL0.2-1.0[facility] HospitalCalcium [Mass/Vol]9.0 mg/dL8.5-10.1FElyria Memorial HospitalChloride [Moles/Vol]106 mmol/G79-282LqgotmtpoTwin City HospitalCholesterol [Mass/Vol]246 mg/dL<=200[facility] Cholesterol in HDL [Mass/Vol]74 mg/lS67-52EwxywkuutT[facility] Hospital Comment on above:> or =60 mg/dl - LOW CARDIOVASCULAR RISK<40 mg/dl - HIGH CARDIOVASCULAR RISKCO2 [Moles/Vol]25.5 mmol/L21.0-32.0[facility] HospitalCreatinine [Mass/Vol]0.96 mg/dL0.55-1.02[facility] GFR/1.73 sq M.predicted MDRD (S/P/Bld) [Vol rate/Area]mL/min/{1.73_m2}>=60 [facility] HospitalGlucose [Mass/Vol]86 mg/qX46-566LeoswvuquT[facility] City HospitalPotassium [Moles/Vol]3.8 mmol/L3.5-5.1FElyria Memorial HospitalProtein [Mass/Vol]7.1 g/dL6.4-8.2FElyria Memorial Hospital Sodium [Moles/Vol]142 mmol/B947-177EfqvovqmuTwin City HospitalTriglyceride [Mass/Vol]101 mg/dL<=150[facility] HospitalTSH Qn1.531 m[IU]/L 0.358-3.740[facility] HospitalUrea nitrogen [Mass/Vol]20.0 mg/dL 7.0-18.0[facility] HospitalUrea nitrogen/Creatinine [Mass ratio] 20.8 mg/mgTwin City HospitalLaboratory - Hematology and Cell countson 45-44-6077WCV (Bld) [Velocity]16 mm/h<=30[facility] HospitalImmature granulocytes/100 WBC (Bld)0.3 %0.0-0.5FElyria Memorial HospitalLeukocytes [#/volume] corrected for nucleated erythrocytes in Blood by Automated counon 39-71-7563KAW corrected for nucl RBC Auto (Bld) [#/Vol]3.8 10 3/uL4.0-11.0[facility] HospitalLymphocytes Auto (Bld) [#/Vol]on 48-02-8866Tuylvkwqfzx (Bld) [#/Vol]1.7 10 3/uL1.2-3.8[facility] HospitalLymphocytes/100 WBC Auto (Bld)on 13-84-0998Qljzdobweoy/100 WBC (Bld)44.8 % 20.5-60.0[facility] NorthH Auto (RBC) [Entitic mass]on 56-95-2526HLU (RBC) [Entitic mass]31.1 pg26.7-34.0[facility] HospitalMCHC Auto (RBC) [Mass/Vol]on 30-04-1613VHXS (RBC) [Mass/Vol]31.6 g/dL 29.9-35.2FElyria Memorial HospitalMCV Auto (RBC) [Entitic vol]on 39-36-8414ZJP (RBC) [Entitic vol]98.3 fL81.0-99.0[facility] HospitalMonocytes Auto (Bld) [#/Vol]on 24-03-5991Cbgsgtwsk (Bld) [#/Vol]0.5 10 3/uL0.3-0.8[facility] HospitalMonocytes/100 WBC Auto (Bld)on 20-87-0531Kvwgushlq/100 WBC (Bld)14.1 %1.7-12.0[facility] Neutrophils Auto (Bld) [#/Vol]on 50-73-8944Aeebqzxuxau (Bld) [#/Vol]1.4 10 3/uL 1.4-6.5FElyria Memorial HospitalNeutrophils/100 WBC Auto (Bld)on 46-75-5040Vjbnebblexc/100 WBC (Bld)35.8 %43.0-75.0[facility] HospitalNo Panel Informationon 37-15-4665Cxokjhsqmas # (Auto)0.2 10 3/uL0.0-0.7 [facility] HospitalImmature Granulocyte # (Auto)0.01 10 3/uL 0.00-0.03[facility] HospitalPlatelet mean volume Auto (Bld) [Entitic vol]on 80-15-5673Iyvsbrdi mean volume (Bld) [Entitic vol]9.1 fL9.5-13.5 [facility] HospitalPlatelets Auto (Bld) [#/Vol]on 08-30-2023 Platelets (Bld) [#/Vol]181 10 3/qR872-538LeaermohyTwin City HospitalRBC Auto (Bld) [#/Vol]on 73-67-9615EZO (Bld) [#/Vol]4.02 10 6/uL4.20-5.40[facility] Hospitalerum or plasma albumin/globulin mass ratioon 08-30-2023 Albumin/Globulin [Mass ratio]1.1 {ratio}[facility] Memorial Hospitalerum or plasma anion gap determinationon 28-54-1126Uvepy gap [Moles/Vol]14.3 mmol/L [facility] Hospitalerum or plasma total cholesterol/high density lipoprotein (HDL) cholesterol mass albina 77-27-2236Oysbfveddmf.total/Cholesterol in HDL [Mass ratio]3.3 {ratio}[facility] HospitalComment on above:3.3 - 4.4 LOW RISK4.4 - 7.1 AVERAGE RISK7.1 - 11.0 MODERATE RISK>11.0 HIGH RISKXR Shoulder - right 2 Viewson 57-49-3923Pegzfwt Result: Two views of the right shoulder; Grashey and axillary were taken today in the office are reviewed, and saved to the permanent medical record. The prosthesis is unchanged in position and alignment. There is no prosthetic loosening or failure. No scapular notching. The scapular spine appears to be intact. No obvious fractures at the coracoid process.[facility] HospitalXR Shoulder - right 2 Viewson 21-72-9898Qemuyotax Study observation (narrative)[facility] HOSPITALNatalie HealthcareIntraOperative Documentson 79-82-4515HpaioIxpflyiec [id number]#1.00CD:127NormalGood Samaritan HospitalAuto Diffon 17-08-6915Ljvtrdgys/100 WBC (Bld)0.2 %Normal0.0-2.0 [facility] HospitalComment on above:Order Comment: Order Added by Discern Expert.Performed By: #### 8429162, 2081877, 9387786, 4526127, 52787865, 3417853 #### [facility] [address] [place] [address] 08658Jufbgqrir/Leukocytes Auto (Bld) [Pure # fraction]0.0 E9/LNormal 0.0-0.2[facility]iatric CenterComment on above:Order Comment: Order Added by Discern Expert.Performed By: #### 7232798, 7594416, 6360033, 8368740, 10254044, 8534599 #### [facility] [address], [place] [address]Rdfuqfbhxbx/100 WBC (Bld)0.0 %Normal0.0-8.0[facility] HospitalComment on above:Order Comment: Order Added by Discern Expert.Performed By: #### 6118735, 5357966, 7428480, 1357473, 17955013, 1926335 #### [facility] [address], [place] [address]Hksbjsrlzva/Leukocytes Auto (Bld) [Pure # fraction]0.0 E9/L Normal0.0-0.5[facility]iatric CenterComment on above:Order Comment: Order Added by Discern Expert.Performed By: #### 5755640, 0892520, 2468532, 7770507, 94801487, 1508242 #### [facility] [address], [place] [address]Layefhifgzv/100 WBC (Bld)7.9 %Low14.0-50.0[facility] HospitalComment on above:Order Comment: Order Added by Discern Expert.Performed By: #### 3330533, 3915011, 9197784, 6602967, 28512747, 0080808 #### [facility] [address] [place] [address] 03[address]Ykiakwqmivz/Leukocytes Auto (Bld) [Pure # fraction]0.8 E9/LLow 1.0-4.0[facility] HospitalComment on above:Order Comment: Order Added by Discern Expert.Performed By: #### 6701929, 1351940, 1965703, 3462519, 74088975, 8977065 #### [facility] [address] [place] [address] 00142Xtedvrqru/100 WBC (Bld)14.0 %Normal4.0-14.0[facility] HospitalComment on above:Order Comment: Order Added by Discern Expert.Performed By: #### 9339625, 0837793, 8330297, 1443332, 18092491, 1156282 #### [facility] [address] [place] [address] 81287Runesumyh/Leukocytes Auto (Bld) [Pure # fraction]1.3 E9/LHigh 0.2-1.0[facility] HospitalComment on above:Order Comment: Order Added by Discern Expert.Performed By: #### 3197314, 2291222, 1843037, 3860226, 79173061, 9280840 #### [facility] [address] [place] [address] 47[address]Dbkhtqtkfja/100 WBC (Bld)77.9 %High36.0-75.0[facility] HospitalComment on above:Order Comment: Order Added by Discern Expert. Performed By: #### 3230376, 3750677, 3686166, 6320720, 91542847, 6364388 #### [facility] [address] [place] [address] 86923Twwvdyryhjk/Leukocytes Auto (Bld) [Pure # fraction]7.5 E9/L Normal2.0-7.5FCommunity Regional Medical CenterComment on above:Order Comment: Order Added by Discern Expert.Performed By: #### 9935382, 1466692, 1146949, 4181009, 85679471, 8927787 #### [facility] [address], [place] [address]PABoi 51-16-3186Omqn nitrogen [Mass/Vol]20 mg/dLNormal5-21 [facility] HospitalComment on above:Performed By: #### 0970068, 0315097, 6104518, 2651175, 72386287, 3111276 #### [facility] [address], [place] [address]DON w/ Auto Diffon 32-06-5366Umqpxehtqsj distribution width (RBC) [Ratio]14.6 %High10.9-14.2FCommunity Regional Medical CenterComment on above: Performed By: #### 1427256, 9797039, 2572248, 8283849, 00826557, 4309434 #### [facility] [address], [place] [address]Fbcvnitfks (Bld) [Volume fraction]29.7 %Low34.0-46.0[facility] HospitalComment on above:Performed By: #### 8214137, 6982602, 7177251, 7928440, 31947305, 0594883 #### [facility] [address], [place] [address]Ibeekifrkm (Bld) [Mass/Vol]10.0 g/dLLow12.0-16.0[facility] HospitalComment on above:Performed By: #### 0750010, 6277624, 3616808, 1415189, 32100254, 3527969 #### [facility] [address], [place] [address]JOJ (RBC) [Entitic mass]32.5 amEhgwin13.0-34.0[facility] HospitalComment on above:Performed By: #### 6612092, 2502222, 8784017, 5659354, 01841475, 4357537 #### [facility] [address], [place] [address]OUNZ (RBC) [Mass/Vol]33.6 g/yDUcuqxa25.4-36.0[facility] HospitalComment on above:Performed By: #### 8249429, 9406053, 9000350, 5160399, 26389431, 3555758 #### [facility] [address], [place] [address]BGB (RBC) [Entitic vol]96.7 mIJquasi68.0-100.0[facility] HospitalComment on above:Performed By: #### 7328430, 0283109, 1256486, 9535046, 89945553, 2186709 #### [facility] [address] [place] [address]Ouyrvpxe mean volume (Bld) [Entitic vol]7.1 fLNormal6.4-10.8 [facility] HospitalComment on above:Performed By: #### [id number], [id number], 1119731, 7149414, [id number], [id number] #### [facility] [address] [place] [address]Hedrrvsrf (Bld) [#/Vol]215.0 E9/WWiwxvm662.0-500.0[facility] HospitalComment on above:Performed By: #### [id number], 9507327, 1866835, [id number], [id number], [id number] #### [facility] [address], [place] [address]YTO (Bld) [#/Vol]3.1 E12/LLow4.3-5.9[facility] Comment on above:Performed By: #### [id number], [id number], 5767835, 0669251, [id number], [id number] #### [facility] [address] [place] [address]GYG corrected for nucl RBC Auto (Bld) [#/Vol]9.6 E9/LNormal 4.0-11.0[facility] HospitalComment on above:Performed By: #### [id number], 0143559, 5736929, [id number], [id number], [id number] #### [facility] [address] [place], [place] [address]OLMXQAOAAFpruvhs By: SYSTEM SYSTEM on 1960Cmcci gap [Moles/Vol]6 mmol/LNormal6 - 16 mEq/LFTMC RemisolChloride [Moles/Vol]118 mmol/L Qein512 - 111 mmol/LFTMC RemisolCO2 [Moles/Vol]23 mmol/LBgdfez37 - 31 mmol/LFTMC RemisolCreatinine [Mass/Vol]0.9 mg/dLNormal0.5 - 1.3 mg/dL[facility] [place] RemisolGFR/1.73 sq M.predicted among non-blacks MDRD (S/P/Bld) [Vol rate/Area]72 mL/min/1.73 m2 Normal>=59mL/min/1.73 m2[facility] [place] Chem SComment on above:Interpretive Data: Chronic kidney disease could be indicated at eGFR's of less than 60 mL/min/1.73m2. Kidney failure is indicated at less than 15 mL/min/1.73m2.Potassium [Moles/Vol] 4.0 mmol/LNormal3.5 - 5.3 mmol/LFTMC RemisolSodium [Moles/Vol]143 mmol/LNormal 135 - 145 mmol/LFTMC RemisolUrea nitrogen [Mass/Vol]20 mg/dLNormal5 - 21 mg/dL [facility] [place] RemisolConsent for Anesthesiaon 23-65-0646Icvmzof for Anesthesia [id number]#1.00CD:127NormalGood Samaritan HospitalCreatinineon 13-40-9105Zskxtanmug [Mass/Vol]0.9 mg/dLNormal0.5-1.3[facility] CenterComment on above:Performed By: #### [id number], 0606554, 0422008, 1972687, 28825690, 4968412 ####[facility] [address] Ophirdave Rodriguezutica psychiatric centerolvinL[place], [place] [address]Sbrghhxth Instructionson 04-07-2023 Discharge [id number]#1.00CD:127Normal [facility] CenterDischarge Note-Nursingon 58-62-9364Cxpfqrnfh Note-Nursing RADHA ZAIDI :1960 Visit Date:04/06/2023 Inpatient Discharge Instructions Your Care Team Admitting Physician - Jordan Yuan DO Referring Physician - Jordan Yuna DO Reason for Your Visit OA RIGHT [...] Pending Diagnostic Test Results None Pharmacy Information [facility] New Follow Up Appointments after Discharge Follow Up with Jordan Yuan When: Where: [address] [place] [address]- Business (1) Follow Up with JOHN ASHBY When: In 0 days Where: [address] [facility] [place] [address]- Business (1) Medications What How Much When Instructions Next Dose Changed acetaminophen-oxycodone (Percocet 5 mg-325 mg oral tablet) See instructions 1-2 tab(s) Cjszl6sm Pickup at [facility]/pharmacy #6177 Next dose due after 10am Unchanged buPROPion (Wellbutrin XL 300 mg/ 24 hours Tab-ER) 1 Tablets By Mouth 2 times a day 04/07/23 @ 9pm Unchanged celecoxib (CeleBREX 100 mg Cap) 1 Capsules By Mouth 2 times a day as needed for for pain Pickup at [facility]/pharmacy #6177 04/07/23 @ 9pm Unchanged cephalexin (Keflex 500 mg Cap) 1 Capsules By Mouth Every 8 hours Duration: 7 Days Pickup at [facility]/pharmacy #6177 04/07/23 @ 2pm and bedtime Unchanged docusate (Colace 100 mg Cap) 1 Capsules By Mouth 2 times a day as needed for for constipation Pickup at [facility]/pharmacy #6177 04/07/23 @ 9pm Unchanged [...] Every day 04/08/23 @ 9am Pharmacy Information [facility]/pharmacy #[id number]: [address], [place] [phone] Test Results CBC BMP WBC: 9.6 E9/L [...] Screw, Non-Locking, 4.5 x 28 mm, Shoulder Ffxyknp5604/06/2023 [employer] Revers Modular Glenoid System, peripheral Screw, Non-Locking, 4.5 x 32 mm Shoulder Implant 04/06/2023 [employer] revers Modular Glenoid System, Peripheral Screw, Non-Locking, 5.5 x 20 mm, Shoulder Implant(2), 04/06/2023 [employer] Revers Modular Glenoid System, Glenosphere, 36 +4 Lateralized/ 24, Shoulder Implant 04/06/2023 Univers revers [place] humeral Stem Size 9, Shoulder Implant 04/06/2023 UniversRevers SutureCap, 36 neutral, shoulder Implant 04/06/2023 universrevers Humeral Insert, small, 36, +6, Shoulder (more content not included)...NormalGood Samaritan HospitalHEMATOLOGYOrdered By: SYSTEM SYSTEM on 97-18-1670Jstrndwod/100 WBC (Bld)0.2 %Normal0.0 - 2.0 %[facility] HemeAutoSS Basophils/Leukocytes Auto (Bld) [Pure # fraction]0.0 E9/LNormal0.0 - 0.2 E9/L [facility] HemeAutoSSEosinophils/100 WBC (Bld)0.0 %Normal0.0 - 8.0 %[facility] HemeAutoSS Eosinophils/Leukocytes Auto (Bld) [Pure # fraction]0.0 E9/LNormal0.0 - 0.5 E9/L [facility] HemeAutoSSLymphocytes/100 WBC (Bld)7.9 %Low14.0 - 50.0 %[facility] HemeAutoSS Lymphocytes/Leukocytes Auto (Bld) [Pure # fraction]0.8 E9/LLow1.0 - 4.0 E9/LFTMC HemeAutoSSMonocytes/100 WBC (Bld)14.0 %Normal4.0 - 14.0 %[facility] HemeAutoSS Monocytes/Leukocytes Auto (Bld) [Pure # fraction]1.3 E9/LHigh0.2 - 1.0 E9/LFTMC HemeAutoSSNeutrophils/100 WBC (Bld)77.9 %High36.0 - 75.0 %[facility] HemeAutoSS Neutrophils/Leukocytes Auto (Bld) [Pure # fraction]7.5 E9/LNormal2.0 - 7.5 E9/L [facility] HemeAutoSSHEMATOLOGYOrdered By: Lizet Hall on 87-93-8830Anttwegiuvc distribution width (RBC) [Ratio]14.6 %High10.9 - 14.2 %[facility] HemeAutoSSHematocrit (Bld) [Volume fraction]29.7 %Low34.0 - 46.0 %[facility] HemeAutoSSHemoglobin (Bld) [Mass/Vol]10.0 g/dLLow12.0 - 16.0 gm/dLFTMC HemeAutoSSMCH (RBC) [Entitic mass] 32.5 csOrzskl11.0 - 34.0 pgFTMC HemeAutoSSMCHC (RBC) [Mass/Vol]33.6 g/dLNormal 31.4 - 36.0 gm/dLPAWHUSKA [facility] [place] HemeAutoSSMCV (RBC) [Entitic vol]96.7 uVEoxhyq35.0 - 100.0 fLPAWHUSKA HOSPITAL – [place] HemeAutoSSPlatelet mean volume (Bld) [Entitic vol]7.1 fLNormal6.4 - 10.8 fLPAWHUSKA HOSPITAL – [place] HemeAutoSSPlatelets (Bld) [#/Vol]215.0 E9/UDxhepp599.0 - 500.0 E9/[facility] [place] HemeAutoSSRBC (Bld) [#/Vol]3.1 E12/LLow4.3 - 5.9 E12/LF[facility]CRE[facility] [place] HemeAutoSSWBC corrected for nucl RBC Auto (Bld) [#/Vol]9.6 E9/LNormal4.0 - 11.0 E9/[facility] HemeAutoSSInpatient Clinical Summaryon 06-09-3720Rbjhluvam Clinical Summary [place] [address] Clinical Summary Person Information: Name: RADHA ZAIDI Age: 62 Years : 1960 Sex: Female PCP: JOHN ASHBY DO Marital Status: Phone: [phone] Race: White Ethnicity: Non- or Language: Macanese Visit Id: Visit Reason: OA RIGHT SHOULDER Speciality: Acuity: Enc Type: Observation Med Service: Medical Arrival: 04/06/2023 06:09:55 Discharge: Dispo Type: Address: [address] [place] [address] [address] [place] [phone] Provider Notes: Patient: RADHA ZAIDI Age: 62 [...] times a day as needed for constipation. Refills:0. leflunomide (Arava 10 mg oral tablet) 1 [...] up: With: Address: When: Jordan Yuan [address] [place] [address] Business (1) 04/19/2023 2:15 PM With: Address: When: JOHN ASHBY [address] [place] [address] Business (1) Patient Education Information: Iris Yuan - Shoulder Replacement (Custom)[facility] Inpatient Patient Summaryon 62-19-4044Lurekswtx Patient Summary [address] [address] Patient Discharge Instructions PERSON INFORMATION [...] up: With: Address: When: Jordan Yuan [address] [place] [phone] Business (1) 04/19/2023 2:15 PM With: Address: When: JOHN ASHBY [address] [place], [place] [phone] Business (1) In the event that this physician does not participate in your insurance network, please consult with your insurance company to find a nearby participating provider. Comment: IDYAN CHERYLL J, have received the attached patient education materials/instructions and haveverbalized understanding: Patient Signature Date Clinican/Nurse Signature Date HERE ARE THE MEDICATION CHANGES THAT OCCURRED DURING YOUR HOSPITAL STAY Medications to Continue Taking That Have Changed [id number], [address], [place] [phone], [phone] START: acetaminophen-oxycodone (Percocet 5 mg-325 mg oral tablet) 1-2 tab(s) Oral q4hr. Refills: 0. Last Dose: Next Dose: STOP: acetaminophen-oxycodone (Percocet 5 mg-325 mg oral tablet) 1 Tablets By Mouth 3 times a day. Medications to Continue with No Changes [facility]/pharmacy #6177, [address], [place] [phone], [phone] celecoxib (CeleBREX 100 mg Cap) 1 Capsules By Mouth 2 times a day as needed for pain. Refills: 0. Last Dose: Next Dose: cephalexin (Keflex 500 mg Cap) 1 Capsules By Mouth every 8 hours for 7 Days. Refills: 0. Last Dose: Next Dose: docusate (Colace 100 mg Cap) 1 Capsules By Mouth 2 times a day as needed for constipation. Refills:0. Last Dose: Next Dose: Other Medications buPROPion (Wellbutrin XL 300 mg/24 hours Tab-ER) 1 Tablets By Mouth 2 times a day. Last Dose: Next Dose: leflunomide (Arava 10 mg oral tablet) 1 Tablets By Mouth every day. Last Dose: Next Dose: lisinopril (lisinopril 5 mg Tab) 1 Tablets By Mouth every day. Last Dose: Next Dose: metoprolol (metoprolol 100 mg ER Tab) 1 Tablets By Mouth at bedtime. Last Dose: Next Dose: pregabalin (Lyrica 150 mg Cap) 1 Capsules By Mouth 2 times a day. Last Dose: Next Dose: tizanidine (Zanaflex 4 mg Tab) 1 tab(s) Oral in AM 3 tabs at bedtime. Last Dose: Next Dose: upadacitinib (Rinvoq 15 mg oral tablet, extended release) 1 Tablets By Mouth every day. Last Dose: Next Dose: Comment: MEDICATION LIST PROVIDED FOR YOU [...] times a day as needed for constipation. Refills:0. leflunomide (Arava 10 mg oral tablet) 1 [...] Tablets By Mouth every day. Pharmacy Information: [facility] Tabitha ([phone]) (more content not included)...Normal [facility] Samaritan HospitalIntraOperative Documentson 93-50-3876FlujyQjfknqvws [id number]#1.00CD:127[facility] Health SystemIntraOperative Documents [id number]#1.00CD:[address] [place], [place] [address]Lyteson 57-10-1829Lllbm gap [Moles/Vol]6 mmol/LNormal6-16Good Samaritan HospitalComment on above:Performed By: #### 9326893, 1698069, 3767764, 9394464, 93484103, 1616808 ####[facility] [address] [place], [place] [address]Rqqypftw [Moles/Vol]118 mmol/GVwxl268-749FifwdmGood Samaritan HospitalComment on above:Performed By: #### 3282761, 3197656, 9316463, 0890872, 93591157, 2066827 ####[facility] [address] [place], [place] [address]JK7 [Moles/Vol]23 mmol/SLxpsjw04-63 [facility] Samaritan HospitalComment on above:Performed By: #### 1399405, 5293707, 5068679, 2238713, 03008027, 3435651 ####[facility] [address] [place], [place] [address]Iejhjtxok [Moles/Vol]4.0 mmol/LNormal 3.5-5.3FCommunity Regional Medical CenterComment on above:Performed By: #### 9337748, 4453479, 2856233, 9610539, 68261880, 7292328 ####[facility] [address] [place] [address]Bnquqm [Moles/Vol]143 mmol/LNormal 135-145Fisher [facility] Lane Psychiatric CenterComment on above:Performed By: #### 8444995, 2354196, 9762264, 8655257, 80460104, 2162658 ####[facility] [address] [place], [place] [address]Yuww OR Intraoperative Recordon 73-42-7688Ihhs OR Intraoperative RecordIntraOp Document Type FT Summary Primary Physician: Jordan Yuan DO Finalized Date/Time: 04/07/23 14:30:58 Pt. Name: ZAIDIRADHA/Sex: 1960 Female Med Rec #: [id number] Physician: Jordan Yuan DO Financial #: [id number] Pt. Type: A Room/Bed: [place] [address] Admit/Disch: 04/06/23 06:09:55 - 04/07/23 09:30:00 Institution: Case Times FT Entry 1 Patient Times In Room 04/06/23 09:32:00 Out Room 04/06/23 11:36:00 Procedure Times Start 04/06/23 10:14:00 Stop 04/06/23 11:30:00 Anesthesia Times Start 04/06/23 09:32:00 Stop 04/06/23 11:36:00 Block Timeout w04/06/23 08:24:00 Anesthesia Last Modified By: Susi HARO, Dennis Crury 04/06/23 11:35:46 General Comments: Right shoulder block performed by under ultrasound guidance. ESTRELLITA De La Fuente to assist with the block. Block timeout at 0824. Patient's heartrate-78, SPo2- 100% on room air. patient tolerated block well. Block start at 0833. Block end at 0836. Patient transported via cart back to [place] [address] and placed on GS34pjxqgzj by ESTRELLITA De La Fuente. 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 gate services supervisor Last Modified By: Wanda SALES ORDER ADMINISTRATOR, Sharmaine Goldman RN, Dennis Goldman RN, Dennis Curry 04/07/23 14:28:51 04/06/23 11:35:47 04/06/23 11:35:47 Entry 4 Entry 5 Entry 6 Case Attendee Valerie SALES ORDER ADMINISTRATOR, Jena Taylor CST, John Role Performed Scrub - Primary Scrub - Primary SALES ORDER ADMINISTRATOR/SA Time In 04/06/23 09:32:00 04/06/23 09:32:00 04/06/23 [...] Yuan DO, Krupp RN, Dennis Curry, Valerie SALES ORDER ADMINISTRATOR, Johnathan Hernandez Sydney A, Wilhelm CST, Alfredo [...] technique, initiates traffic control (more content not included)...NormalFisher Zen Medical CenterMain OR PACU I Recordon 22-38-9844Erix OR PACU I RecordPACU Phase I Document Type FT Summary Primary Physician: Jordan Yuan DO Finalized Date/Time: 04/07/23 08:05:19 Pt. Name: RADHA ZAIDI /Sex: 1960 Female Med Rec #: [id number] Physician: Jordan Yuan DO Financial #: [id number] Pt. Type: O Room/Bed: [facility] Admit/Disch: 04/06/23 06:09:55 - Institution: Case Times [...] individualized perioperative plan of care The patient's rightto privacy is maintained The patient's value system, [...] with or improved from baseline levels established preoperativelyThe patient's cardiovascular status is consistent with or improved from baseline levels established preoperatively The patient's cardiovascular status is consistent with or improved from baseline levels established preoperatively The patient demonstrates and/or reports adequate pain control throughout the perioperative period The patient received appropriate medication(s), safely administered during the perioperativeperiod Acuity Level PACU I FT Entry 1 Start Time 04/06/23 11:37:00 Stop Time 04/06/23 12:48:00 Acuity Level Acuity Level I Last Modified By: Deyanira Donald RN 04/06/23 13:18:10 General Comments: 04/07/2023 0804hr Mae-op doc updated. ESTRELLITA Elizondo Finalized By: Cate Gonsales RN Document Signatures Signed By: Cate Gonsales RN 04/07/23 08:04 Cate Gonsales RN 04/07/23 08:05[facility] SystemPatient Education - Text 65-25-5089Axpjnbt Education - [place], [place] [facility] DISCHARGE INSTRUCTIONS: SHOULDER REPLACEMENT [...] persistent vomiting. Jordan Yuan DO [facility] [address] [place] [address] Reviewed: NoGuernsey Memorial HospitalPreoperative Documentson 41-31-3393Wycfmaengndl Documents [id number]#1.00CD:127[facility] Health SystemProgress Note-Physicianon 79-69-2260Cfdnxxxt Note-PhysicianPatient: RADHA ZAIDI Age: 62 years Sex: Female [...] Diastolic Blood Pressure 63 mmHg SpO2 94 %NormalGood Samaritan HospitalComment on above:Result Comment: Electronically Signed By: Jordan Yuan DO\.br\Date and Time Signed: 04/07/23 07:40 EDTeGFRon 64-22-0834FCS/1.73 sq M.predicted among non-blacks MDRD (S/P/Bld) [Vol rate/Area]72 mL/min/1.73 i3Pqpxte>=59[facility] Comment on above:Order Comment: Order added by Discern Expert.Result Comment: Chronic kidney disease could be indicated at eGFR's of less than 60 mL/min/1.73m2. Kidney failure is indicated at less than 15 mL/min/1.73m2. Performed By: #### 4157207, 7773786, 5012105, 1199511, 73671325, 6544854 ####[place] [address] [place] [address] ABO/Rhon 72-28-6332QXK/RhPositiveInvalid Interpretation [facility] HospitalComment on above:Performed By: #### 90220905, 31163931, 71215030, 2824510 ####[address] [address] ABO/Rh History Checkon 45-50-2078QPE/Rh History CheckVerified Hx Blood Type [facility] Health SystemComment on above:Performed By: #### 33639135, 49110358, 17245190, 1790465 ####[address] [address]FULTtz 44-30-9069JPBQ Gel InterpNegativeNormal [facility]aritan HospitalComment on above:Performed By: #### 33594607, 48484839, 06533457, 7267172 ####[place] [address] [place], [place] [address]ELBIT BANKOrdered By: Deyanira Nunez on 04-06-2023 ABO/Rh InterpPositiveInvalid Interpretation [facility] BB SubsectionABSC Gel InterpNegative (04/06/23 7:23 AM)Pending sale to [facility] BB SubsectionBlood Bank ID#on [id number]#[id number] Invalid Interpretation [facility] HospitalComment on above:Performed By: #### 86281297, 80017976, 28843790, 5912471 ####[facility] [address] [place], [place] [address]Mxxifrg for Treatmenton 04-06-2023 Consent for [id number]#1.00CD:127Notessie Gruber [facility] Lane Psychiatric CenterH&P Updateon 04-06-2023H&P Update [id number]#1.00CD:127AlyssaGood Samaritan HospitalInsurance Correspondence Officeon 65-55-4331Mhjvvzdiw Correspondence [id number]#1.00CD:127NotessieGood Samaritan HospitalMain OR Preoperative Recordon 49-23-3060Pjfh OR Preoperative RecordPreOp Document Type FT Summary Primary Physician: Jordan Yuan DO Finalized Date/Time: 04/06/23 09:32:24 Pt. Name: ZAIDIRADHA/Sex: 1960 Female Med Rec #: [id number] Physician: Jordan Yuan DO Financial #: [id number] Pt. Type: A Room/Bed: [facility] Admit/Disch: 04/06/23 06:09:55 - Institution: Case [...] Signatures Signed By: Dennis Goldman RN 04/06/23 09:32NotessieGood Samaritan HospitalMonitor Record on 10-29-8361Xfkhexc [id number]#1.00CD:127 AlyssaGood Samaritan HospitalMonitor Record [id number]#1.00CD:127NotessieGood Samaritan HospitalMonitor [id number]#1.00CD:127Normal [facility]iatric CenterOperative Reporton 45-86-8284Xxidgthsh ReportPatient: RADHA ZAIDI Age: 62 years Sex: Female : 1960 Associated Diagnoses: None Author: Jordan Yuan DO DATE OF SURGERY: 04/06/2023 SURGEON: Jordan Yuan D.O. DIRECT SUPPORT PROFESSIONAL CAREGIVER: Anival Flores CFA PREOPERATIVE DIAGNOSIS: Massive rotator [...] 3. size +6 humeral insert 4. Revers [place] size 9 stem with 36 (neutral) Suturecup OPERATIVE INDICATIONS: Radha is a 62-year-old hxkcm-vtvs-tafurfut female who has had persistent right shoulder pain that has gotten progressively worse over time. She has lost strength, range of motion, and function. Her symptoms interfere with her activities of daily living, ability to sleep at night, and quality of life. She agreed to proceed with the above procedure after a discussion of therisks, benefits, complications, alternatives, and expectations. Please see office notes for furtherdetails. Presurgical planning and intraoperative instrumentation were performed [...] released with a guzmán. Perez retractor was thenplaced to retract the deltoid. The conjoined tendon was identified and the clavipectoral fascia was opened just lateral to the conjoined tendon. The coracoacromial ligament was identified and the rotator interval was then opened. The bicipital sheath was opened and the biceps tendon was absent. The anterior circumflex vessels were cauterized with the Bovie and Aquamantys. A Darrauch retractorwas placed into the glenohumeral joint and used to help apply tension to the anterior capsule. There was no subscapularis tendon present. The anterior capsule was released from the proximal humerus with the bovie. The arm was extended, adducted, and externally rotated to deliver the proximal humerus asthe anterior capsule was released. The 135 degree [...] maximum deficiency. The depth-stop (more content not included)...Normal [facility]itan HospitalComment on above:Result Comment: Electronically Signed By: Jordan Yuan DO\.br\Date and Time Signed: 04/06/23 15:39 EDT Operative ReportPatient: RADHA ZAIDI Age: 62 years Sex: Female [...] Negative attempt at aspiration for blood, Medial andlateral spread of the anesthestic was observed, Periodic negative attempts at aspiration of blood were made as the local was injected, No pain or parathesia were elicited with injection of the anesthetic in the conscious patient, It was idetified that the correct anesthetic agent was administered to the correct site. Complications: None, The patient tolerated the procedure as expected.Normal [facility]itan HospitalComment on above:Result Comment: Electronically Signed By: Yanick Rai DO\.br\Date and Time Signed: 04/06/23 08:44 EDT Progress Note-Physicianon 27-04-5675Hycorccg Note-PhysicianPatient: RADHA ZAIDI Age: 62 years Sex: Female : 1960 Associated Diagnoses: None Author: Yanick Rai DO Postoperative Information Postoperative disposition: Postoperative disposition: To PACU. Optimetrix number: Optimetrix number [id number]. Anesthetic utilized: General. Regional: Interscalene Block. Health [...] EDT, Start in AM postop day 1, 239:00:00 EDT Lyrica 150 mg Cap: 150 mg = 1 cap(s), Cap, Oral, BID, Routine, Start date 04/06/23 21:00:00 EDT Milk of Magnesia 8% Susp-Oral: 30 mL, Susp-Oral, Oral, BID PRN Constipation, Routine, Start date 04/06/23 9:57:00 EDT Nozin 62% Bottle - POSTOP: 6 drop(s), Soln-Nasal, Nasal, BID, Routine, Start date 04/06/23 21:00:00EDT Pantoprazole [address] Tab: 40 mg [...] Pain 8-10 for 5 day(s), Stop date 239:56:00 EDT, Routine, Start date 04/06/23 9:57:00 EDT Prescriptions Prescribed CeleBREX 100 mg Cap: 100 mg = 1 cap(s), Oral, BID, PRN for pain, # 60 cap(s), Refills(s) 0, Pharmacy: [facility]/pharmacy #[id number], 160, cm, 03/25/23 6:16:00 EDT, Height/Length Dos (more content not included)...[facility] Health SystemComment on above:Result Comment: Electronically Signed By: Yanick Rai DO\Date and Time Signed: 04/06/23 11:57 EDTProgress Note-Physician Patient: RADHA ZAIDI Age: 62 years [...] EA, Powder-Inj, IVPiggyback, PREOP, Routine, Start date 04/06/23 6:30:00 EDT, 100 mL/hr, Infuse over 30 minute(s) tranexamic acid additive + premix generic diluent 100 mL: 1,000 mg = 100 mL, Soln-IV, IV Piggyback,Once, Stop date 04/06/23 7:00:00 EDT, Routine, Start [...] list: All Problems Bradycardia / SNOMED CT 01073657 / Confirmed High blood pressure / SNOMED CT 8778387664 / Confirmed 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 Family History: Primary malignant neoplasm of prostate Father Acute myocardial infarction Mother Procedure history: Cervical laminectomy (9047545410). Amputation of finger (415327045). Removal of lung, Partial (74052). Open reduction and internal fixation of fracture Leg (494533156). Foot surgery (2082306663). Lumbar discectomy (213397286). Social History Social & Psychosocial Habits Alcohol [...] clear to auscultation. (more content not included)... [facility] Health SystemComment on above:Result Comment: Electronically Signed By: Yanick Rai DO.zari\Date and Time Signed: 04/06/23 08:05 EDT XR Shoulder Complete Righton 31-25-3844OM Shoulder Complete RightExam Date/Time: 04/06/2023 11:58 EDT Reason for Exam: [...] Ka,r in mGy = na DAP = naNormalGood Samaritan HospitalConsent for Procedure/Surgeryon 55-27-8011Jzatini for Procedure/Surgery [id number]#1.00CD:127[facility] Health SystemCT Upper Extremity w/o Contrast Righton 53-07-3882KO Upper Extremity w/o Contrast RightExam Date/Time: 03/24/2023 16:10 EDT Reason for Exam: [...] Gigi Suazo DO Transcribed by: DANISHA Technologist: CentervilleABO/Rh Retypeon 93-71-3041YYA/Rh Retype InterpPositiveInvalid Interpretation [facility] HospitalComment on above:Performed By: #### [id number] ####[facility] [address] [place], [place] [address]LQVND BANK Ordered By: Deyanira Longoria on 78-57-8663IRU/Rh Retype InterpPositiveInvalid Interpretation [facility] BB SubsectionBUNon 96-02-8704Vqss nitrogen [Mass/Vol]28 mg/dLHigh5-21[facility]itan HospitalComment on above:Performed By: #### 66683491, 6414907, 3552695, 2792689, 4427295, 7777051 ####[facility] [address] [place], [place] [address]HIN w/Indiceson 03-24-2023 Erythrocyte distribution width (RBC) [Ratio]14.5 %High10.9-14.2FCommunity Regional Medical CenterComment on above:Performed By: #### 98457570, 6976577, 1989677, 5766964, 3895851, 5999720 ####[facility] [address] [place], [place] [address]Lwogxztnio (Bld) [Volume fraction]35.9 %Bbgwrx21.0-46.0 [facility] HospitalComment on above:Performed By: #### 89655261, 6695629, 5987543, 2366963, 2071753, 9443010 ####[facility] [address] [place], [place] [address]Ahsjmouhck (Bld) [Mass/Vol]11.9 g/dL Low12.0-16.0[facility] HospitalComment on above:Performed By: #### 20521979, 3907227, 8845278, 9735942, 2804704, 4348136 ####[facility] [address] [place], [place] [address]ZPB (RBC) [Entitic mass]32.3 pzQjsuzh66.0-34.0[facility]itan HospitalComment on above:Performed By: #### 45167198, 7106425, 1828430, 4177275, 8383281, 5642124 ####[facility] [address] [place], [place] [address]BIXI (RBC) [Mass/Vol]33.1 g/dL Zldjxn73.4-36.0[facility] HospitalComment on above:Performed By: #### 45275842, 4146144, 3278485, 8567643, 6812597, 4783489 ####[address] [address]ATI (RBC) [Entitic vol]97.4 fL Rmalsj56.0-100.0Good Samaritan HospitalComment on above:Performed By: #### [id number], [id number], 8618012, 2687343, 1549006, 0725178 ####[address] [address]Feewoewr mean volume (Bld) [Entitic vol]7.4 fLNormal6.4-10.8[facility] Samaritan HospitalComment on above: Performed By: #### [id number], 6955583, 3818741, 8869801, 4029609, 2131705 ####[address] [address] Platelets (Bld) [#/Vol]207.0 E9/YLczwfp143.0-500.0[facility] Comment on above:Performed By: #### [id number], 0470695, 1417648, 2999091, 8378092, 0131123 ####[address] [address]HQC (Bld) [#/Vol]3.7 E12/LLow4.3-5.9[facility]aritan HospitalComment on above:Performed By: #### [id number], 0879173, 0934009, 6608653, 6716583, 1109790 ####[address] [address]RQM corrected for nucl RBC Auto (Bld) [#/Vol]3.5 E9/LLow 4.0-11.0[facility]aritan HospitalComment on above:Performed By: #### [id number], 0170673, 7265087, 0663133, 4835437, 6209435 ####[facility] [address] [place], [place] [address]RPIQPCPHFEvywcdf By: SYSTEM SYSTEM on 18-27-3962Vwrsv gap [Moles/Vol]12 mmol/LNormal6 - 16 mEq/LFTMC RemisolChloride [Moles/Vol]111 mmol/OWvordp044 - 111 mmol/LFTMC RemisolCO2 [Moles/Vol]20 mmol/L Low21 - 31 mmol/LFTMC RemisolCreatinine [Mass/Vol]1.2 mg/dLNormal0.5 - 1.3 mg/dL [facility] RemisolGFR/1.73 sq M.predicted among non-blacks MDRD (S/P/Bld) [Vol rate/Area]51 mL/min/1.73 m2Low>=59mL/min/1.73 m2[facility] Chem SGlucose [Mass/Vol]84 mg/jAMayqyx37 - 199 mg/dLPAWHUSKA HOSPITAL [facility] RemisolPotassium [Moles/Vol]4.2 mmol/LNormal3.5 - 5.3 mmol/LFTMC RemisolSodium [Moles/Vol]139 mmol/QRzeenf882 - 145 mmol/LFTMC RemisolUrea nitrogen [Mass/Vol]28 mg/dLHigh5 - 21 mg/dLPAWHUSKA [facility] RemisolConsent for Treatmenton 28-95-2226Mvstozm for Treatment [id number]#1.00CD:127NormalGood Samaritan HospitalCreatinineon 46-31-1511Jeplqgtuhv [Mass/Vol]1.2 mg/dLNormal0.5-1.3[facility] Psychiatric CenterComment on above:Performed By: #### [id number], 4849105, 0414368, 9097024, 3784658, 3256708 ####[facility] [address] [place], [place] [address]Ewgutgnyl 17-33-7577Jzkykhc [Mass/Vol]84 mg/dL Ukeihg59-521LlrmcqGood Samaritan HospitalComment on above:Performed By: #### [id number], 5109929, 1660373, 5734550, 9936381, 6080542 ####[facility] [address]wpfcnzu[address] [place], [place] [address]VOQSAUSBGPAsbphpl By: Deyanira Longoria on 14-60-4704Jegefpewoxj distribution width (RBC) [Ratio]14.5 %High10.9 - 14.2 %[facility] HemeAutoSSHematocrit (Bld) [Volume fraction]35.9 %Wytcze58.0 - 46.0 %[facility] HemeAutoSSHemoglobin (Bld) [Mass/Vol]11.9 g/dLLow12.0 - 16.0 gm/dL [facility] HemeAutoSSMCH (RBC) [Entitic mass]32.3 kwAidssb33.0 - 34.0 pgFTMC HemeAutoSSMCHC (RBC) [Mass/Vol]33.1 g/sVNdotnk59.4 - 36.0 gm/dLFTMC HemeAutoSS MCV (RBC) [Entitic vol]97.4 wOEcxgdm67.0 - 100.0 fLFTMC HemeAutoSSPlatelet mean volume (Bld) [Entitic vol]7.4 fLNormal6.4 - 10.8 fLFTMC HemeAutoSSPlatelets (Bld) [#/Vol]207.0 E9/SEwjdqn619.0 - 500.0 E9/LFTMC HemeAutoSSRBC (Bld) [#/Vol] 3.7 E12/LLow4.3 - 5.9 E12/LFTMC HemeAutoSSWBC corrected for nucl RBC Auto (Bld) [#/Vol]3.5 E9/LLow4.0 - 11.0 E9/LFTMC HemeAutoSSLyteson 93-55-9968Wydcl gap [Moles/Vol]12 mmol/LNormal6-16Good [facility]aritan HospitalComment on above: Performed By: #### [id number], 7357575, 1344381, 4571252, 0301766, 9375158 ####[facility] [address] [place] [address] Chloride [Moles/Vol]111 mmol/ZGajtfl441-353Wmrbrf [facility] Medical CenterComment on above:Performed By: #### 40075793, 3003231, 0789577, 6613951, 3692745, 3018078 ####[facility] [address] [place], [place] [address]ZQ5 [Moles/Vol]20 mmol/BDxk95-00JfmvcgGood Samaritan HospitalComment on above: Performed By: #### [id number], 2874434, 3956046, 7973015, 7493090, 1938273 ####[facility] [address] [place] [address] Potassium [Moles/Vol]4.2 mmol/LNormal3.5-5.3[facility] Psychiatric CenterComment on above:Performed By: #### [id number], 3892434, 7213895, 0905740, 3267093, 0608232 ####[address] [address]Cumeec [Moles/Vol]139 mmol/WKlabst768-484TimoasGood Samaritan HospitalComment on above:Performed By: #### [id number], 9965130, 8901052, 2974351, 1227397, 4318240 ####[address] [place], [place] [address]TA With Cult Reflexon 37-29-5861Bchxnosfp Ql (U)NegativeNormalNegative [facility]aritan HospitalComment on above:Performed By: #### [id number] #### [facility] [address] [place], [place] [address]Lqwacid (U)CLEARNormalClearGood Samaritan HospitalComment on above:Performed By: #### [id number] #### [facility] [address] [place], [place] [address]Rtpqu (U)YELLOWNormalYellowGood Samaritan HospitalComment on above:Performed By: #### [id number] #### [facility] [address] [place], [place] [address]Lnhxkasmxy cells.squamous LM.HPF (Urine sed) [#/Area]0-2Normal 0-2FCommunity Regional Medical CenterComment on above:Performed By: #### [id number] #### [facility] [address] [place], [place] [address]Znvk Granular Casts LM Ql (Urine sed)0-3NormalGood Samaritan HospitalComment on above:Performed By: #### [id number] #### [facility] [address] [place], [place] [address]Anewvgp Test strip (U) [Mass/Vol]NegativeNormalNegativeGood Samaritan HospitalComment on above:Performed By: #### [id number] #### [facility] [address] [place] [address]Ryxkteurgf Ql (U)NegativeNoalNegThe Surgical Hospital at SouthwoodsComment on above:Performed By: #### [id number] #### [facility] [address] [place] [address]Jhimpay (U) [Mass/Vol]NegativeNormalNegThe Surgical Hospital at SouthwoodsComment on above:Performed By: #### [id number] #### [facility] [address] [place] [address]Erafxhb.plasma/Pisek.RBC (Bld) [Mass ratio]9-6Sjqdcp3-3LornrxCommunity Regional Medical CenterComment on above:Performed By: #### [id number] #### [facility] [address] [place] [address]Pvrfc Ql (Urine sed)TRACENoGuernsey Memorial Hospital Comment on above:Performed By: #### [id number] #### [facility] [address] [place] [address]Ztkiyor Ql (U)[facility] Comment on above:Performed By: #### [id number] #### [facility] [address] [place] [address]yX (U)6.0 [pH]Invalid Interpretation Code5.0-9.0[facility] HospitalComment on above:Performed By: #### [id number] #### [facility] [address] [place], [place] [address]Vmvpslt (U) [Mass/Vol]NegativeNormalNegativeGood Samaritan HospitalComment on above:Performed By: #### [id number] #### [facility] [address] [place] [address]Ddcokpep gravity (U) [Rel density]>=1.030Invalid Interpretation Code1.005-1.030[facility]itan HospitalComment on above:Performed By: #### [id number] #### [facility] [address] [place] [address]Omwx of Urine collection methodClean CatchNormalGood Samaritan HospitalComment on above:Performed By: #### [id number] #### [facility] [address] [place] [address]Gvdiaqafoigk Qn (U)0.2 {Rajwinder'U}/dLNormal0.0-1.0[facility] HospitalComment on above:Performed By: #### [id number] #### [facility] [address] [place] [address]KKK Auto Ql (U)NegativeNormalNegativeGood Samaritan HospitalComment on above:Performed By: #### [id number] #### [facility] [address] [place] [address]OKY LM.HPF (Urine sed) [#/Area]1-5Lndgku5-7Xscnce Brook Lane Psychiatric CenterComment on above:Performed By: #### [id number] #### [facility] [address] [place] [address]GFIPTWCJXYVwskpdu By: Indira Case on 12-11-5795Nffelwhys Ql (U) Negative (03/24/23 3:05 PM)NormalNegativePAWHUSKA [facility] UA Auto SSClarity (U)Clear (03/24/23 3:05 PM)NormalClearFHILLCREST [facility] Auto SSColor (U)Yellow (03/24/23 3:05 PM)NormalYellowPAWHUSKA HOSPITAL – [facility] UA Auto SSEpithelial cells.squamous LM.HPF (Urine sed) [#/Area]0-2 /HPFNormal0-2/HPFPAWHUSKA HOSPITAL – [facility] UA Auto SSFine Granular Casts LM Ql (Urine sed)0-3 (03/24/23 3:05 PM)NormalPAWHUSKA HOSPITAL – [facility] UA Auto SSGlucose Test strip (U) [Mass/Vol]Negative (03/24/23 3:05 PM)NormalNegativePAWHUSKA HOS[facility]ITAL [facility] UA Auto SSHemoglobin Ql (U)Negative (03/24/23 3:05 PM)NormalNegativePAWHUSKA HOS[facility]ITAL [facility] UA Auto SSKetones (U) [Mass/Vol]Negative (03/24/23 3:05 PM)NormalNegativePAWHUSKA HOS[facility]ITAL [facility] UA Auto SSLithium.plasma/Pisek.RBC (Bld) [Mass ratio]0-3 /HPFNormal0-3/HPFPAWHUSKA HOSPITAL – [facility] UA Auto SSMucus Ql (Urine sed)Trace (03/24/23 3:05 PM)NormalPAWHUSKA HOSPITAL – [facility] UA Auto SSNitrite Ql (U)Negative (03/24/23 3:05 PM)NormalNegativePAWHUSKA [facility]OS[facility]ITAL [facility] UA Auto SSpH (U)6.0 *NA* (03/24/23 3:05 PM)Invalid Interpretation Code5.0 - 9.0[facility] UA Auto SSProtein (U) [Mass/Vol]Negative (03/24/23 3:05 PM)NormalNegativePAWHUSKA [facility]OS[facility]ITAL [facility] UA Auto SSSpecific gravity (U) [Rel density] >=1.030 *NA* (03/24/23 3:05 PM)Invalid Interpretation Code1.005 - 1.030[facility] UA Auto SSUA Spec DescClean Catch (03/24/23 3:05 PM)NormalPAWHUSKA HOSPITAL – [facility] UA Auto SSUrobilinogen Qn (U)0.1916188 {Rajwinder'U}/dLNormal0.0 - 1.0 EU/dLPAWHUSKA HOSPITAL [facility] UA Auto SSWBC Auto Ql (U)Negative (03/24/23 3:05 PM)NormalNegativePAWHUSKA HOSPITAL [facility] UA Auto SSWBC LM.HPF (Urine sed) [#/Area]0-5 /HPFNormal0-5/HPFPAWHUSKA HOSPITAL – [facility] UA Auto SSXR Chest 2 Viewson 56-49-4917YO Chest 2 Views Exam Date/Time: 03/24/2023 15:21 [...] Karony in mGy = na DAP = naNorUniversity Hospitals Beachwood Medical CentereGFRon 03-40-7054RWG/1.73 sq M.predicted among non-blacks MDRD (S/P/Bld) [Vol rate/Area]51 mL/min/1.73 m2Low >=[address] [place], [place] [address]Comment on above:Order Comment: Order added by Discern Expert.Result Comment: Chronic kidney disease could be indicated at eGFR's of less than 60 mL/min/1.73m2. Kidney failure is indicated at less than 15 mL/min/1.73m2.Performed By: #### [id number], 7356692, 2178389, 9392210, 5337650, 1853461 ####[facility] [address] [place], [place] [address]Gjdyspjdj Orderon 95-74-0769Dzphlfrlz Order [id number]#1.00CD:127NoGuernsey Memorial HospitalXR SHOULDER RT 2V or >on 18-63-8016LB SHOULDER RT 2V or >EXAM: XR SHOULDER RT. HISTORY: . Pain of [...] Electronically authenticated by: VANDANA YUAN Date: 2022-10-07 22:08NoShelby [facility] AUTO DIFFon 91-67-7438CHHP #0.0 103/ulNormal0.0-0.1[facility] City Medical CenterComment on above:Performed By: #### CBC ####[facility] [address] [place] [address] [address]Dr.Andrade ChangBasophils/100 WBC (Bld)0.5 %Normal0.2-2.0[facility] on above:Performed By: #### CBC ####[facility] [address] [place], [place] [address]Dr.Kellenlan ChangEO #0.1 103/ulNormal0.0-0.7The [facility]S HospitalCompromedica charles [facility] on above:Performed By: #### CBC ####[facility] Npafrtkpch[address] [place], [place] [address]Dr.Andrade ChangEosinophils/100 WBC (Bld)2.3 %Normal 0.9-7.0The [facility]'S HospitalComment on above:Performed By: #### CBC ####[facility] [address]ub[address] [address]Dr.Andrade Alvarado Erythrocyte distribution width (RBC) [Ratio]13.7 %Mtvobw39.0-15.0[facility] on above:Performed By: #### CBC ####[facility] [address]zhltplfnf[address] [place], [place] [address]Dr.Andrade AlvaradoHematocrit (Bld) [Volume fraction]32.8 %Critically low36.0-48.0The [facility]'S HospitalComment on above:Performed By: #### CBC ####[facility] [address]rxt[address] [address]Dr.Andrade ChangHemoglobin (Bld) [Mass/Vol]10.9 g/dL Critically low12.0-16.0The [facility]'S HospitalComment on above:Performed By: #### CBC ####[facility] Ezulfwefmb[address] [place], [place] [address]Dr. Kellenlan ChangIG #0.02 10e3/ulNormal0.00-0.03The St[facility]'S HospitalComment on above: Performed By: #### CBC ####[facility] Wfphaglaqx54[address] [place], [place] [address]Dr.Kellengregory ChangIG %0.5 %Normal0.0-0.5The [facility]'S HospitalComment on above:Performed By: #### CBC ####[facility] Qwucortirc[address] [place], [place] [address]Dr.Andrade ChangLYMPH #1.6 103/ulNormal1.2-3.8The [facility]'S HospitalComment on above:Performed By: #### CBC ####[facility] Sbsxopadxv[address] [place], [place] [address]Dr. Kellengregory AlvaradoLymphocytes/100 WBC (Bld)41.8 %Cxndsk09.5-60.0The [facility] Comment on above:Performed By: #### CBC ####[facility] Vtfmungvfd[address] [place], [place] [address]Dr.Kellengregory ChristianoMANUAL DIFF REQNONormalThe St. Anthony'S HospitalComment on above:Performed By: #### CBC ####[facility] Bjplercnqm[address] [place], [place] [address]Dr.Andrade AlvaradoH (RBC) [Entitic mass]31.9 anZxfvul76.7-34.0The [facility]'S HospitalComment on above: Performed By: #### CBC ####[facility] Bssqjlabpo[address] [place], [place] [address]Dr.Andrade AlvaradoPAN AMERICAN H[facility] (RBC) [Mass/Vol]33.2 g/dLNormal 29.9-35.2The [facility]itha HospitalComment on above:Performed By: #### CBC ####[facility] [address]hw[address]apo[address] [address]Dr. Andrade ChristianoMCV (RBC) [Entitic vol]95.9 rRKkxami07.0-99.0The [facility] Comment on above:Performed By: #### CBC ####[facility] Ipuzexkwec[address] [place], [place] [address]Dr.Andrade AlvaradoMONO #0.5 103/ulNormal0.3-0.8 The [facility] HospitalComment on above:Performed By: #### CBC ####[facility] Rkvqglnnlt4[address] [place], [place] [address]Dr.Andrade Alvarado Monocytes/100 WBC (Bld)13.1 %Critically high1.7-12.0The [facility] HospitalComment on above:Performed By: #### CBC ####[facility] Yzvistrgho42[address] [place], [place] [address]Dr.Andrade AlvaradoNEUT #1.6 103/ulNormal1.4-6.5The [facility] HospitalComment on above:Performed By: #### CBC ####[facility] Qychrciwvy[address] [place], [place] [address]Dr.Kellengregory AlvaradoNeutrophils/100 WBC (Bld)41.8 %Critically low43.0-75.0The [facility] HospitalComment on above: Performed By: #### CBC ####[facility] [address]zpcmcpmtc[address] [place], [place] [address]Dr.Kellengregory AlvaradoPlatelet mean volume (Bld) [Entitic vol] 8.8 fLCritically low9.5-13.5The [facility] HospitalComment on above:Performed By: #### CBC ####[facility] Dateesdmnb[address] [place], [place] [address]Dr.Andrade DenjfXYU709 103/wjIaiead019-474Goh [facility] HospitalComment on above:Performed By: #### CBC ####[facility] Ruekhagslb[address] [place], [place] [address]Dr.Andrade AlvaradoRBC3.42 106/ulCritically low4.20-5.40The St[facility]'S HospitalComment on above:Performed By: #### CBC ####[facility] [address] [address]Dr.Yilan AlvaradoWBC3.9 103/ul Critically low4.0-11.0The [facility]'S HospitalComment on above:Performed By: #### CBC ####[facility] Spyryweawx[address] [address]Dr. Andrade AlvaradoFERRITINon 35-93-4117Zyspuwhe [Mass/Vol]292.0 ng/mLCritically high 8.0-252.0The St[facility]'S HospitalComment on above:Performed By: #### FERR, B12FOL, FETIBC #### [facility] [address] [address] [address] Andrade Chavez AND TIBCon 09-16-2022% HFLAWFLCER58.2 %NormalThe St[address] Anthony'S HospitalComment on above:Performed By: #### FERR, B12FOL, FETIBC #### [facility] [address] [address] [address] Andrade Chavez [Mass/Vol]259.0 ug/dLCritically high50.0-170.0The St[facility]'S HospitalComment on above:Performed By: #### FERR, B12FOL, FETIBC #### [facility] [address] [address] [address] Andrade Sandhu ZBUSFX271.0 ug/uDGmjuag416.0-450.0The [facility] Comment on above:Performed By: #### FERR, B12FOL, FETIBC #### [facility] [address] [address] [address] Andrade David 14(COMP METB)on 67-68-0107Yvwnnyq [Mass/Vol]4.0 g/dLNormal 3.4-5.0The [facility]'S HospitalComment on above:Performed By: #### CMP ####[facility] [address]wdoqdx[address] [place], [place] [address]Dr.Yilan Alvarado Albumin/Globulin [Mass ratio]1.3 {ratio}NormalThe St. Anthony'S HospitalComment on above:Performed By: #### CMP ####[facility] Veotwaosnn[address] [place], [place] [address]Dr.Andrade AlvaradoALP [Catalytic activity/Vol]47 U/LNormal 46-116The St[facility]'S HospitalComment on above:Performed By: #### CMP ####[facility] [address]ozwbper[address] [place], [place] [address]Dr.Andrade ChangALT [Catalytic activity/Vol]23 U/CHuugdh25-26Rln St. [facility]'S HospitalComment on above: Performed By: #### CMP ####[facility] Dipwogubox[address] [place], [place] [address]Dr.Andrade AlvaradoAnion gap [Moles/Vol]12.1 mmol/LNormal The [facility]'S HospitalComment on above:Performed By: #### CMP ####[facility] Zlbevaikyh[address] [place], [place] [address]Dr.Andrade ChangAST [Catalytic activity/Vol]23 U/QYxyowp99-63Pmn St[facility]'S HospitalComment on above: Performed By: #### CMP ####[facility] [address]sjwivsdvp[address] [place], [place] [address]Dr.Andrade AlvaradoBilirubin [Mass/Vol]0.4 mg/dLNormal 0.2-1.0The [facility]'S HospitalComment on above:Performed By: #### CMP ####[facility] Ncmpozomdw[address] [place], [place] [address]Dr.Andrade Alvarado Calcium [Mass/Vol]9.3 mg/dLNormal8.5-10.1The [facility]'S HospitalComment on above: Performed By: #### CMP ####[facility] Himuwntmso[address] [place], [place] [address]Dr.Andrade ChangChloride [Moles/Vol]108 mmol/LCritically clrb02-229Qko St[facility]'S HospitalComment on above:Performed By: #### CMP ####[facility] [address]svovwem[address] [place], [place] [address]Dr. Yigregory ChangCO2 [Moles/Vol]26.9 mmol/IRfzmdn15.0-32.0The [facility]'S HospitalComment on above:Performed By: #### CMP ####[facility] Leuedeiyqp[address] [place], [place] [address]Dr.Yilan ChangCreatinine [Mass/Vol]0.87 mg/dLNormal 0.55-1.02The [facility]'S HospitalComment on above:Performed By: #### CMP ####[facility] Y[address]idzpirxb[address] [place], [place] [address]Dr. Yilan ChangEGFR-AF SUDANESE>60Normal>=60The [facility]'S HospitalComment on above: Performed By: #### CMP ####[facility] Veluhdcytq39[address] [place], [place] [address]Dr.Yilan ChangEGFR-NON AF SUDANESE>60Normal>=60The [facility]'S HospitalComment on above:Performed By: #### CMP ####[facility] [address]roqhbaf[address] [place], [place] [address]Dr.Yilan ChangGlobulin (S) [Mass/Vol]3.0 g/dLNormalThe St. [facility]'S HospitalComment on above:Performed By: #### CMP ####[facility] Yvmkvzesxf[address] [place], [place] [address]Dr.Yilan ChangGlucose [Mass/Vol]102 mg/vIPimaug14-894Zum [facility] Comment on above:Performed By: #### CMP ####[facility] [address]zxnqbusns7[address] [place], [place] [address]Dr.Yilan ChangPotassium [Moles/Vol]4.0 mmol/LNormal3.5-5.1The [facility]'S HospitalComment on above:Performed By: #### CMP ####[facility] Sxlifraozd94[address] [place], [place] [address]Dr. Yilan ChangProtein [Mass/Vol]7.0 g/dLNormal6.4-8.2The [facility]'S HospitalComment on above:Performed By: #### CMP ####[facility] F[address]ktqygmbb[address] [place], [place] [address]Dr.Yilan ChangSodium [Moles/Vol]143 mmol/LNormal 136-145The St[facility]'S HospitalComment on above:Performed By: #### CMP ####[facility] [address]ctjdl[address] [place] [address]Dr.Kellengregory ChangUrea nitrogen [Mass/Vol]25.0 mg/dLCritically high7.0-18.0The [facility]'S HospitalComment on above:Performed By: #### CMP ####[facility] Edms[address]rmybk[address] [place] [address]Dr.Kellengregory ChangUrea nitrogen/Creatinine [Mass ratio] 28.7 mg/mgNormalThe St. [facility]'S HospitalComment on above:Performed By: #### CMP ####[facility] L[address]emruwu[address] [place] [address]Dr. Andrade AlvaradoSED RATE WESTERGRENon 74-59-8256PXD RATE11 mm/hrNormal<=30The St[facility]'S HospitalComment on above:Performed By: #### SEDR ####[facility] [address]cyebfzc[address] [place], [place] [address]Dr. Andrade AlvaradoVIT B12 AND FOLATEon 08-78-7203Rptomhkza (Vitamin B12) [Mass/Vol]249.0 pg/mLNormal 193.0-986.0The [facility]S HospitalComment on above:Performed By: #### FERR, B12FOL, FETIBC #### [facility] [address] [address] [address] Andrade AlvaradoFOLATE14.00 ng/mLNormal8.60-58.90The St[facility]'S HospitalComment on above:Performed By: #### FERR, B12FOL, FETIBC #### [facility] [address] [address] [address] Andrade AlvaradoMG MAMM SCREEN 3D BRENNA CADon 49-62-5400ME MAMM SCREEN 3D BRENNA CAD Patient: RADHA ZAIDI Exam Date: 2022 : 1960 Gender:F Ordering : DR JOHN ASHBY D.O. Admission #: [id number] Family : Order #: [id number] CLICK HERE TO VIEW EXAM RADIOLOGY REPORT [...] cancer at age 72. LOCATION: [facility] BREAST COMPOSITION: Scattered areas fibroglandular density. [...] by: Julian Teixeira M.D. on 06/09/2022 at 15:30NoShelby [facility] AUTO DIFFon [id number] #0.0 103/ulNormal0.0-0.1[facility] City Medical CenterComment on above:Performed By: #### CBC ####[facility] [address]xnnnihzl[address] [place], [place] [address]Dr.Andrade ChangBasophils/100 WBC (Bld)1.0 %Normal0.2-2.0[facility] City Medical CenterComment on above:Performed By: #### CBC ####[facility] [address]imvvwuxy[address] [place], [place] [address]Dr.Kellenlan ChangEO #0.1 103/ulNormal0.0-0.7ThAdena Fayette Medical CenterComment on above:Performed By: #### CBC ####[facility] [address]eflzrj[address] [place], [place] [address]Dr.Andrade ChangEosinophils/100 WBC (Bld)2.5 %Normal 0.9-7.0The [facility]S HospitalComment on above:Performed By: #### CBC ####[facility] [address]vvkjrj[address] [place], [place] [address]Dr.Yilan Alvarado Erythrocyte distribution width (RBC) [Ratio]13.0 %Dhtfvc25.0-15.0The [facility] HospitalComment on above:Performed By: #### CBC ####[facility] [address] [place] [address]Dr.Andrade AlvaradoHematocrit (Bld) [Volume fraction]34.9 %Critically low36.0-48.0The [facility] HospitalComment on above:Performed By: #### CBC ####[facility] [id number] [place], [place] [address]Dr.Andrade AlvaradoHemoglobin (Bld) [Mass/Vol]11.6 g/dL Critically low12.0-16.0The [facility] HospitalComment on above:Performed By: #### CBC ####[facility] Iotibseskh[address] [place], [place] [address]Dr. Andrade ChangIG #0.02 10e3/ulNormal0.00-0.03The [facility] HospitalComment on above: Performed By: #### CBC ####[facility] [id number] [place], [place] [address]Dr.Andrade ChangIG %0.5 %Normal0.0-0.5The [facility] HospitalComment on above:Performed By: #### CBC ####[facility] [id number] [place], [place] [address]Dr.Andrade AlvaradoLYMPH #1.9 103/ulNormal1.2-3.8The [facility] HospitalComment on above:Performed By: #### CBC ####[facility] [id number] [place], [place] [address]Dr. Andrade AlvaradoLymphocytes/100 WBC (Bld)46.1 %Rrweiw68.5-60.0[facility] Comment on above:Performed By: #### CBC ####[facility] Dbwicoince[address] [place], [place] [address]Dr.Andrade AlvaradoMANUAL DIFF REQNONormalThe St. Anthony'S HospitalComment on above:Performed By: #### CBC ####[facility] [id number] [place], [place] [address]Dr.Andrade ChristianoH (RBC) [Entitic mass]32.3 yxYebvly71.7-34.0The [facility] HospitalComment on above: Performed By: #### CBC ####[facility] [address] [place] [address]Dr.Andrade AlvaradoHC (RBC) [Mass/Vol]33.2 g/dLNormal 29.9-35.2The [facility]. Anthony'S HospitalComment on above:Performed By: #### CBC ####[facility] [address] [place], [place] [address]Dr. Kellengregory AlvaradoV (RBC) [Entitic vol]97.2 dJRfrwsr36.0-99.0The [facility] Comment on above:Performed By: #### CBC ####[facility] [address] [place], [place] [address]Dr.Andrade AlvaradoMONO #0.5 103/ulNormal0.3-0.[address] [facility]'S HospitalComment on above:Performed By: #### CBC ####[facility] Mqtalvighj[address] [place], [place] [address]Dr.Andrade Alvarado Monocytes/100 WBC (Bld)13.5 %Critically high1.7-12.0The [facility]'S HospitalComment on above:Performed By: #### CBC ####[facility] Sqsxkaoysk[address] [place], [place] [address]Dr.Andrade AlvaradoNEUT #1.5 103/ulNormal1.4-6.5The [facility]'S HospitalComment on above:Performed By: #### CBC ####[facility] Kqkianwdbd[address] [place], [place] [address]Dr.Andrade AlvaradoNeutrophils/100 WBC (Bld)36.4 %Critically low43.0-75.0The [facility]'S HospitalComment on above: Performed By: #### CBC ####[facility] Gpowtlyuja[address] [place], [place] [address]Dr.Andrade AlvaradoPlatelet mean volume (Bld) [Entitic vol] 8.9 fLCritically low9.5-13.5The [facility]'S HospitalComment on above:Performed By: #### CBC ####[facility] [address] [address]Dr.Andrade AlvaradoPLT237 103/gbTavfpu558-322Hdl St[facility]'S HospitalComment on above:Performed By: #### CBC ####[facility] [address]dyfxm[address] [address]Dr.Andrade AlvaradoRBC3.59 106/ulCritically low4.20-5.40The [facility]'S HospitalComment on above:Performed By: #### CBC ####[facility] Nhzsx[address]ens[address] [address]Dr.Andrade AlvaradoWBC4.0 103/ul Normal4.0-11.0The [facility]'S HospitalComment on above:Performed By: #### CBC ####[facility] [address] [address]DrMehreen PedroPon 62-03-9773HPH [Mass/Vol]mg/LNormal<=1.0The [facility] Comment on above:Performed By: #### CMP, CRP, TSH ####[facility] Eyxgsgdyln[address] [place], [place] [address]DrMehreen AlvaradoPROF 14(COMP METB)on 82-77-7307Lqtlshg [Mass/Vol]4.2 g/dLNormal3.4-5.0The [facility] Comment on above:Performed By: #### CMP, CRP, TSH #### [facility] [address] [place] [address] Dr. Andrade AlvaradoAlbumin/Globulin [Mass ratio]1.3 {ratio}NormalThe St. Anthony'S HospitalComment on above:Performed By: #### CMP, CRP, TSH #### [facility] [address] [place] [address] Dr. Andrade Bermudez [Catalytic activity/Vol]50 U/SUbycbf30-680Tbi St[facility]'S HospitalComment on above:Performed By: #### CMP, CRP, TSH #### [facility] [address] [place] [address] Dr. Yilan ChangALT [Catalytic activity/Vol]23 U/YYbqhoq25-31Pjm St[facility]'S HospitalComment on above:Performed By: #### CMP, CRP, TSH #### [facility] [address] [place] [address] Dr. Andrade AlvaradoAnion gap [Moles/Vol]11.3 mmol/LNormalTrinity Health [facility] Comment on above:Performed By: #### CMP, CRP, TSH #### [facility] [address] [place] [address] Dr. Andrade AvlaradoAST [Catalytic activity/Vol]23 U/OHuuvjs77-02Zzr St[facility]'S HospitalComment on above:Performed By: #### CMP, CRP, TSH #### [facility] [address] [place] [address] Dr. Andrade AlvaradoBilirubin [Mass/Vol]0.5 mg/dLNormal0.2-1.0[facility] Comment on above:Performed By: #### CMP, CRP, TSH #### [facility] [address] [place] [address] Dr. Andrade AlvaradoCalcium [Mass/Vol]9.3 mg/dLNormal8.5-10.1[facility] Comment on above:Performed By: #### CMP, CRP, TSH #### [facility] [address] [place] [address] Dr. Andrade AlvaradoChloride [Moles/Vol]104 mmol/DXyrdzz36-538WkvTrinity Health System [facility] Comment on above:Performed By: #### CMP, CRP, TSH #### [facility] [address] [place] [address] Dr. Andrade AlvaradoCO2 [Moles/Vol]27.2 mmol/QAsnhhd52.0-32.0The [facility] Comment on above:Performed By: #### CMP, CRP, TSH #### [facility] [address] [place] [address] Dr. Andrade AlvaradoCreatinine [Mass/Vol]0.99 mg/dLNormal0.55-1.02The [facility]'S HospitalComment on above:Performed By: #### CMP, CRP, TSH #### [facility] [address] [address] [address] Andrade MartinezGFR-AF SUDANESE>60Normal>=60The [facility]'S HospitalComment on above:Performed By: #### CMP, CRP, TSH #### [facility] [address] [address] [address] Andrade MartinezGFR-NON AF BBMKEKWL86 mL/min/1.36s4Hjimrvsnxe low>=60The [facility]'S HospitalComment on above:Performed By: #### CMP, CRP, TSH #### [facility] [address] [address] [address] Andrade AlvaradoGlobulin (S) [Mass/Vol]3.3 g/dLNormalThe St. [facility]'S HospitalComment on above:Performed By: #### CMP, CRP, TSH #### [facility] [address] [address] [address] Andrade AlvaradoGlucose [Mass/Vol]97 mg/aRCwklyt02-692NdsTrinity Health System [facility] Comment on above:Performed By: #### CMP, CRP, TSH #### [facility] [address] [address] [address] Andrade AlvaradoPotassium [Moles/Vol]3.5 mmol/LNormal3.5-5.1The [facility] Comment on above:Performed By: #### CMP, CRP, TSH #### [facility] [address] [address] [address] Andrade AlvaradoProtein [Mass/Vol]7.5 g/dLNormal6.4-8.2The [facility] Comment on above:Performed By: #### CMP, CRP, TSH #### [facility] [address] [address] [address] Andrade AlvaradoSodium [Moles/Vol]139 mmol/ZTwinub593-382Dsp [facility] Comment on above:Performed By: #### CMP, CRP, TSH #### [facility] [address] [address] [address] Andrade AlvaradoUrea nitrogen [Mass/Vol]22.0 mg/dLCritically high7.0-18.0The [facility] on above:Performed By: #### CMP, CRP, TSH #### [facility] [address] [address] [address] Andrade AlvaradoUrea nitrogen/Creatinine [Mass ratio]22.2 mg/mgNormalThe St. [facility]'S HospitalCompromedica [facility] on above:Performed By: #### CMP, CRP, TSH #### [facility] [address] [address] [address] Andrade Ellsworth RATE WESTERGRENon 48-80-9689PFU RATE22 mm/hrNormal<=30The [facility] on above:Performed By: #### SEDR ####[facility] K[address]elxzfh[address] [place], [place] [address]DrMehreen AlvaradoTSHon 77-52-9680URO1.373 uIU/mLNormal0.358-3.740The [facility] on above: Performed By: #### CMP, CRP, TSH #### [facility] [address] [address] [address] Andrade Vieira AUTO DIFFon 93-60-3955LZCG #0.0 103/ulNormal0.0-0.1The [facility] on above:Performed By: #### CBC ####[facility] [address]zmdhjpkav[address] [place], [place] [address]Dr.Andrade ChangBasophils/100 WBC (Bld)0.9 %Normal0.2-2.0The [facility] on above:Performed By: #### CBC ####[facility] Qavvilhcsq[address] [place], [place] [address]Dr.Kellenlan ChangEO #0.1 103/ulNormal0.0-0.7The [facility] on above:Performed By: #### CBC ####[facility] Dmnxdbygdn[address] [place], [place] [address]Dr.Andrade ChangEosinophils/100 WBC (Bld)2.3 %Normal 0.9-7.0The [facility] on above:Performed By: #### CBC ####[facility] [address] [address]Dr.Andrade Alvarado Erythrocyte distribution width (RBC) [Ratio]12.6 %Wkckjp18.0-15.0The [facility]'S HospitalComment on above:Performed By: #### CBC ####[facility] Fzvwjzvhvn[address] [place], [place] [address]Dr.Andrade AlvaradoHematocrit (Bld) [Volume fraction]37.8 %Lejfmd32.0-48.0The [facility]'S HospitalComment on above:Performed By: #### CBC ####[facility] Kakucpckac[address] [place], [place] [address]Dr.Andrade AlvaradoHemoglobin (Bld) [Mass/Vol]12.3 g/dL Nvqqfa53.0-16.0The [facility]'S HospitalComment on above:Performed By: #### CBC ####[facility] Lgwstbbnhu33[address] [place], [place] [address]Dr. Kellengregory AlvaradoIG #0.02 10e3/ulNormal0.00-0.03The [facility]'S HospitalComment on above: Performed By: #### CBC ####[facility] Irovlhffrp6[address] [place], [place] [address]Dr.Kellengregory AlvaradoIG %0.5 %Normal0.0-0.5The [facility]'S HospitalComment on above:Performed By: #### CBC ####[facility] Knolctwnpv[address] [place], [place] [address]Dr.Andrade ChristianoLYMPH #2.1 103/ulNormal1.2-3.8The [facility]'S HospitalComment on above:Performed By: #### CBC ####[facility] Bnlnvrdqis38[address] [place], [place] [address]Dr. Andrade ChristianoLymphocytes/100 WBC (Bld)48.3 %Wsyjil43.5-60.0The [facility] Comment on above:Performed By: #### CBC ####[facility] Gygvoajclf[address] [place], [place] [address]Dr.Andrade AlvaradoMANUAL DIFF REQNONormalThe St. [facility]'S HospitalComment on above:Performed By: #### CBC ####[facility] Y[address]yejgtn[address] [address]Dr.Andrade ChristianoH (RBC) [Entitic mass]31.9 ugUzvxlu43.7-34.0The [facility]S HospitalComment on above: Performed By: #### CBC ####[facility] Z[address]wnnzfdej[address] [address]Dr.Andrade AlvaradoHC (RBC) [Mass/Vol]32.5 g/dLNormal 29.9-35.2The [facility] HospitalComment on above:Performed By: #### CBC ####[facility] Wkdxdqmisj[address] [address]Dr. Andrade AlvaradoV (RBC) [Entitic vol]97.9 gDGplszp99.0-99.0The [facility] Comment on above:Performed By: #### CBC ####[facility] Uchwwipsdd[address] [place], [place] [address]Dr.Andrade AlvaradoMONO #0.5 103/ulNormal0.3-0.[address] [facility]S HospitalComment on above:Performed By: #### CBC ####[facility] Tpvnlspcxr[address] [place], [place] [address]Dr.Kellengregory Alvarado Monocytes/100 WBC (Bld)11.2 %Normal1.7-12.0The [facility]'S HospitalComment on above:Performed By: #### CBC ####[facility] Acmphalzaq[address] [place], [place] [address]Dr.Andrade AlvaradoNEUT #1.6 103/ulNormal1.4-6.5The [facility]S HospitalComment on above:Performed By: #### CBC ####[facility] Fnfdqokyjl8417[address] [place], [place] [address]Dr.Andrade AlvaradoNeutrophils/100 WBC (Bld)36.8 %Critically low43.0-75.0The [facility]'S HospitalComment on above: Performed By: #### CBC ####[facility] B[address]qerjjzpj[address] [place], [place] [address]Dr.Kellengregory AlvaradoPlatelet mean volume (Bld) [Entitic vol] 9.9 fLNormal9.5-13.5The [facility]S HospitalComment on above:Performed By: #### CBC ####[facility] Rdgruqnsba[address] [address]DrMehreen AlvaradoPLT213 103/pjPpueub809-701Qqj St[facility]S HospitalComment on above: Performed By: #### CBC ####[facility] Yllcmqtirx[address] [address]Dr.Andrade AlvaradoRBC3.86 106/ulCritically low4.20-5.40The [facility]S HospitalComment on above:Performed By: #### CBC ####[facility] Rrlovvsnpw[address] [place], [place] [address]DrNito AlvaradoWBC4.4 103/ul Normal4.0-11.0The [facility]'S HospitalComment on above:Performed By: #### CBC ####[facility] Ekquqdegiw[address] [place], [place] [address]DrMehreen AlvaradoPROF 14(COMP METB)on 90-11-9254Zplcokd [Mass/Vol]4.2 g/dLNormal 3.4-5.0The [facility]'S HospitalComment on above:Performed By: #### CMP #### [facility] [address] [place] [address] Dr. Andrade AlvaradoAlbumin/Globulin [Mass ratio]1.3 {ratio}NormalThe St. [facility]'S HospitalCompromedica [facility] on above:Performed By: #### CMP #### [facility] [address] [place] [address] Dr. Andrade Bermudez [Catalytic activity/Vol]61 U/XDvgqwq25-202Kur [facility]'S HospitalComment on above:Performed By: #### CMP #### [facility] [address] [place] [address] Dr. Andrade Lujan [Catalytic activity/Vol]23 U/TNptklt90-97Qgj St[facility]S HospitalComment on above:Performed By: #### CMP #### [facility] [address] [place] [address] Dr. Andrade Nunez gap [Moles/Vol]15.5 mmol/LNormalTr[facility] Comment on above:Performed By: #### CMP #### [facility] [address] [address] [address] Andrade AlvaradoAST [Catalytic activity/Vol]20 U/TUhfcox88-68Nrx [facility]S HospitalComment on above:Performed By: #### CMP #### [facility] [address] [address] [address] Andrade AlvaradoBilirubin [Mass/Vol]0.5 mg/dLNormal0.2-1.0[facility] Comment on above:Performed By: #### CMP #### [facility] [address] [address] [address] Andrade AlvaradoCalcium [Mass/Vol]9.1 mg/dLNormal8.5-10.1[facility] Comment on above:Performed By: #### CMP #### [facility] [address] [address] [address] Andrade AlvaradoChloride [Moles/Vol]106 mmol/CQzayoj47-197Rye [facility] Comment on above:Performed By: #### CMP #### [facility] [address] [place] [address] Dr. Andrade AlvaradoCO2 [Moles/Vol]25.6 mmol/AOiglda84.0-32.0[facility] Comment on above:Performed By: #### CMP #### [facility] [address] [address] [address] Andrade AlvaradoCreatinine [Mass/Vol]0.97 mg/dLNormal0.55-1.02The [facility]'S HospitalComment on above:Performed By: #### CMP #### [facility] [address] [address] [address] Zafar ChangEGFR-AF SUDANESE>60Normal>=60The [facility]'S HospitalComment on above:Performed By: #### CMP #### [facility] [address] [address] [address] Andrade MartinezGFR-NON AF ITRRNEWD59 mL/min/1.05f8Jbwkuvbygn low>=60The [facility] HospitalComment on above:Performed By: #### CMP #### [facility] [address] [address] [address] Andrade AlvaradoGlobulin (S) [Mass/Vol]3.2 g/dLNormUK HealthcareComment on above:Performed By: #### CMP #### [facility] [address] [address] [address] Andrade AlvaradoGlucose [Mass/Vol]91 mg/vZGhgewu49-922Yrt [facility] Comment on above:Performed By: #### CMP #### [facility] [address] [address] [address] Andrade AlvaradoPotassium [Moles/Vol]4.1 mmol/LNormal3.5-5.1The [facility] Comment on above:Performed By: #### CMP #### [facility] [address] [address] [address] Andrade AlvaradoProtein [Mass/Vol]7.4 g/dLNormal6.4-8.2[facility] Comment on above:Performed By: #### CMP #### [facility] [address] [address] [address] Andrade AlvaradoSodium [Moles/Vol]143 mmol/VElutde129-774TaiTrinity Health System [facility] Comment on above:Performed By: #### CMP #### [facility] [address] [address] [address] Andrade AlvaradoUrea nitrogen [Mass/Vol]18.0 mg/dLNormal7.0-18.0The [facility]S HospitalComment on above:Performed By: #### CMP #### [facility] [address] [address] [address] Andrade AlvaradoUrea nitrogen/Creatinine [Mass ratio]18.6 mg/mgNormUK HealthcareComment on above:Performed By: #### CMP #### [facility] [address] [address] [address] Andrade Ellsworth RATE WESTERGRENon 67-75-3967QRO RATE15 mm/hrNormal<=30The [facility] HospitalComment on above:Performed By: #### SEDR #### [facility] [address] [address] [address] Andrade Montoya LEFT 3 VWSon 50-09-2630UQBB LEFT 3 [facility]ni[facility] Department of Radiology [address] [place] [address] Patient Name: RADHA ZAIDI : [...] visible. Electronically signed: Eliezer Cam. Transcribed by: [email or web address], User Resident: Electronically Signed by: ELIEZER CAM @ 04/25/2020 11:44 [facility] for RehabilitationComment on above:Order Comment: EvaluateTIBIA FIBULA LEFTon 74-58-5897WBFXF FIBULA [facility] Department of Radiology [address] [place] [id number] Patient Name: RADHA ZAIDI : 1960 Sex: F Age: Race: White Pt. Location: Patient Status: Ordered Date: 03/27/2020 8:05:00 AM Completed Date: 03/27/2020 08:35 AM Requesting Provider: CHARLI LUKE Attending Provider: Report Copy To: Signs & Symptoms: S82.832A Oth fracture of upper and lower end of left fibula, init I10 History: [place] Comments: , , , Ordering Provider - CHARLI ULKE PA-C , Exam: TIBIA FIBULA LEFT TIBIA [...] healing Electronically signed: Crissy Dubon. Transcribed by: [email or web address], User Resident: Electronically Signed by: CRISSY DUBON @ 03/27/2020 09:11 AMNormalThe [facility] HospitalComment on above:Order Comment: EvaluateOperative Report on 44-01-3421Igbgdbysq ReportMR#: [id number] [facility] Pt. Name: Radha Zaidi Room #: [...] were bluntly retracted. 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 Once the nonunion was debrided, we then used the Viette gamma BSM putty bone substitute and placed [...] Paniagua MD Date Trans: 03/13/2020 02:26 A/bryson DN_JN:[id number] cc: John Ashby D.O. [address] [place] [id number]-Patterson Medical CenterKN LEFT 1 OR 2 VWSon 71-27-5954BEXR LEFT 1 OR 2 SUniMemorial Health System Department of Radiology [address] [place] [id number] Patient Name: RADHA ZAIDI : 1960 [...] fracture. Electronically signed: Rahul James. Transcribed by: [email or web address], User Resident: Electronically Signed by: RAHUL JAMES @ 03/12/2020 03:20 PMNormalThe [facility] HospitalComment on above:Order Comment: EvaluatePOC GLUCOSE LAB on 35-64-5403Svaacbs [Mass/Vol]103 mg/mJFekl43-165YgfFairfield Medical CenterComment on above:Performed By: #### [id number] ####[facility]*MRSA/MSSA DNA NASALon 03-08-2020*MRSA/MSSA DNA NASALClinical Report: (D) Specimen: NASAL SWAB Collected: 03/08/2020 14:02 Status: Final Last Updated: 03/09/2020 09:30 MSSA DNA (Final) Negative MRSA DNA (Final) NegativeNormalThe [facility] HospitalComment on above:Performed By: #### [id number] ####[facility]*SARS-CoV-2 COVID-19on 30-70-6839TRZK-COVID-19Not DetectedNormal Not DetectedThe [facility] HospitalComment on above:Order Comment: The Aptima SARS-CoV-2 assay is a nucleic acid amplification test intended for the qualitative detection of RNA from SARS-CoV-2 isolated and purified from nasopharyngeal (X RAY CONSULTANT),oropharyngeal (OP), nasal swab, sputum, and bronchoalveolar lavage (BAL) specimens from patients with signs and symptoms of infection who are suspected of COVID-19. Results are for the identification of SARS-CoV-2 RNA. The SARS-CoV-2 RNA is generally detectable during the acute phase of infection. The Aptima SARS-CoV-2 Assay on the Lostant and Lostant Fusion system is intended for use by laboratory personnel specifically instructed and trained in the operation of the Lostant and Lostant Fusion system. The Aptima SARS-CoV-2 assay is [...] with clinical observations, patient history, and epidemiological information.Performed By: #### [id number] #### [facility] [address] [place] [address], [facility] L[facility] VEGASAPTTon 98-83-2902rPGA Coag (Bld) [Time]26.9 sNormal 25.0-35.0The [facility] HospitalComment on above:Result Comment: ALL RESULTS MUST BE INTERPRETED WITH RESPECT TO BLOOD DRAWING ARTIFACT OR DILUTION ERROR OF ANTICOAGULANT AT THE TIME OF SAMPLING. THE APTT SHOULD NOT BE USED TO MONITOR UNFRACTIONATED HEPARIN THERAPY, THIS LABORATORY NO LONGER HAS AN ESTABLISHED THERAPEUTIC RANGE BASED ON THE APTT. IT IS RECOMMENDED THAT THE UFH - HEPARIN ASSAY (ANTI-XA ACTIVITY) BE USED FOR THIS PURPOSE.Performed By: #### [id number], [id number] ####[facility] [place] [address], [facility] BASIC METABOLIC PANELon 68-78-1237Lqlbdnx [Mass/Vol]9.7 mg/dLNormal8.6-10.3The [facility] HospitalComment on above:Performed By: #### [id number] #### [facility] [address] [place] [address], [facility] AT L[facility] VEGASChloride [Moles/Vol]103 mmol/GPjvpaj06-301Vqb [facility] HospitalComment on above:Performed By: #### [id number] #### [facility] [address] [place] [address], USACO2 [Moles/Vol]31 mmol/JYehhgm14-19Nul [facility] HospitalComment on above:Performed By: #### [id number] #### [facility] [address] [place] [address], USACreatinine [Mass/Vol]0.87 mg/dLNormal0.60-1.20The [facility] HospitalComment on above:Performed By: #### [id number] #### [facility] [address] [place] [address], USAGFR/1.73 sq M predicted among blacks MDRD (S/P/Bld) [Vol rate/Area]mL/min/{1.73_m2}Normal>60The [facility] Comment on above:Performed By: #### [id number] #### [facility] [address] [place] [address], USAGFR/1.73 sq M predicted among non-blacks MDRD (S/P/Bld) [Vol rate/Area]mL/min/{1.73_m2}Normal>60The [facility] Comment on above:Performed By: #### [id number] #### [facility] [address] [place] [address], USAGlucose [Mass/Vol]106 mg/zUVuzm68-010Oku [facility] HospitalComment on above:Performed By: #### [id number] #### [facility] [address] [place] [address], USAPotassium [Moles/Vol]4.3 mmol/LNormal3.5-5.1The [facility] HospitalComment on above:Performed By: #### 75652 #### [facility] [address] [place] [address], USASodium [Moles/Vol]141 mmol/KYdbvwt912-475Jbk [facility] Medical CenterComment on above:Performed By: #### [id number] #### [facility] [address] [place] [address], USAUrea nitrogen [Mass/Vol]14 mg/dLNormal7-25The [facility] HospitalComment on above:Performed By: #### [id number] #### [facility] [address] [facility] [place] [address], USACBC W/DIFFon 59-61-4931ZVT BASOPHILS0.1 10*3/uLNormal 0.0-0.2The [facility] HospitalComment on above:Performed By: #### [id number] ####[facility] [facility] [place] [address], USAABS IMM GRANS0.0 10*3/uLNormal0.0-0.2The [facility] HospitalComment on above:Performed By: #### [id number] ####[facility] [place] [address], [facility] INSTITUTE AT L[facility] VEGASABS NEUTROPHILS3.4 10*3/uLNormal 1.6-7.6The [facility] HospitalComment on above:Performed By: #### [id number] ####[facility] [place] [address], [facility] AT L[facility] VEGASBasophils/100 WBC (Bld)0.8 %Normal0.0-1.0The [facility] HospitalComment on above:Performed By: #### [id number] ####[facility] [place] [address], [facility] AT LAS VEGASEosinophils (Bld) [#/Vol] 0.7 10*3/uLHigh0.0-0.5The [facility] HospitalComment on above: Performed By: #### [id number] ####[facility] [facility] [place] [address], [facility] AT L[facility] VEGASEosinophils/100 WBC (Bld)9.5 %High0.0-6.0The [facility] HospitalComment on above:Performed By: #### [id number] ####[facility] [place] [address], [facility] Erythrocyte distribution width (RBC) [Ratio]13.6 %Eykfsx18.5-15.0The [facility] HospitalComment on above:Performed By: #### [id number] ####[facility] [facility] [address], USAHematocrit (Bld) [Volume fraction]42.5 %Dzosme94.0-45.0The Barnesville HospitalComment on above:Performed By: #### 98535 ####[facility] [facility], [place] [address], USAHemoglobin (Bld) [Mass/Vol]13.7 g/tZNxjsnm94.0-15.0The [facility]ville HospitalComment on above: Performed By: #### 50118 ####[facility] [place] [address], USAIMMATURE GRANS0.3 %Normal0.0-1.0The Barnesville HospitalComment on above:Performed By: #### 48153 ####[facility] [place] [address], USALymphocytes (Bld) [#/Vol]2.7 10*3/uLNormal1.2-4.0The [facility]ville HospitalComment on above:Performed By: #### 45813 ####[facility] [place] [address], USALymphocytes/100 WBC (Bld)35.1 %Normal 20.0-45.0The [facility]ville HospitalComment on above:Performed By: #### 22661 ####[facility] [facility], [place] [address], USAMCH (RBC) [Entitic mass]31.2 zqPhougz04.0-33.0The [facility]ville HospitalComment on above:Performed By: #### 01829 ####[facility] [place] [address].[place] [address], [facility] L[facility] VEGASMCHC (RBC) [Mass/Vol]32.2 g/zNJoqoyr14.0-35.0The [facility]ville HospitalComment on above: Performed By: #### 76641 ####[facility] [place] [address], [facility] AT L[facility] VEGASMCV (RBC) [Entitic vol]96.8 aNReuejg34.0-98.0The [facility]ville HospitalComment on above:Performed By: #### 58488 ####[address] [place] [address], [facility] Monocytes (Bld) [#/Vol]0.8 10*3/uLNormal0.1-1.0The [facility]ville HospitalComment on above:Performed By: #### 48463 ####[place] [address], [facility] IN[facility] AT L[facility] VEGASMONOS9.8 %Normal5.0-12.0The Barnesville HospitalComment on above:Performed By: #### 25761 ####[address] [place] [address], [facility] Neutrophils/100 WBC (Bld)44.5 %Fzubtc34.0-72.0The [facility]ville HospitalComment on above:Performed By: #### 33899 ####[address] [place] [address], [facility] L[facility] VEGASNucleated RBC/100 WBC (Bld) [Ratio]0 %Normal0-0The [facility]ville HospitalComment on above: Performed By: #### 90595 ####[address] [place] [address], [facility] IN[facility] AT LAS VEGASPLAT RMN737 10*3/nBRbpene428-609Yth Barnesville HospitalComment on above:Performed By: #### 37891 ####[facility] [place] [address], [facility] INSTITUTE AT LAS VEGASRBC (Bld) [#/Vol] 4.39 10*6/uLNormal3.80-5.00The [facility]ville HospitalComment on above:Performed By: #### 59173 ####[facility] [place] [address], [facility] INSTITUTE AT L[facility] VEGASWBC (Bld) [#/Vol]7.72 10*3/uLNormal4.00-10.60 The Barnesville HospitalComment on above:Performed By: #### 69938 ####[facility] [place] [address], [facility] PROTHROMBIN TIMEon 92-87-8143BBR Coag (PPP) [Relative time]0.99 {INR}Normal 0.91-1.16The Barnesville HospitalComment on above:Result Comment: ACCCP RECOMMENDED INR FOR WARFARIN THERAPY ------- CONDITION INR PROPHYLAXIS OF VENOUS THROMBOSIS 2-3 (HIGH-RISK SURGERY) TREATMENT OF VENOUS THROMBOSIS 2-3 TREATMENT OF PULMONARY EMBOLISM 2-3 PREVENTION OF SYSTEMIC EMBOLISM: 2-3 ACUTE MYOCARDIAL INFARCTION TISSUE HEART VALVES VALVULAR HEART DISEASE ATRIAL FIBRILLATION RECURRENT SYSTEMIC EMBOLISM MECHANICAL HEART VALVE 2.5-3.5 FROM: ORAL ANTICOAGULANTS. MECHANISM OF ACTION, CLINICAL EFFECTIVENESS, AND OPTIMAL THERAPEUTIC RANGE. CHEST 1995;108:231S-246S.Performed By: #### 50091, 02438 #### [facility] [address] [place] [address], USAPT Coag (PPP) [Time]13.1 pGqqylf91.3-14.8The [facility]ville HospitalComment on above:Result Comment: ALL RESULTS MUST BE INTERPRETED WITH RESPECT TO BLOOD DRAWING ARTIFACT OR DILUTION ERROR OF ANTICOAGULANT AT THE TIME OF SAMPLING.Performed By: #### 07629, 48376 #### [facility] [address] [place] [address], USAALBUMIN BLOODon 89-13-9270Izrnnsa [Mass/Vol]4.5 g/dLNormal 3.5-5.7The [facility] HospitalComment on above:Performed By: #### 94299, 22500, 16214, 20632, 55849 #### [facility] [address] [place] [address], USABASIC METABOLIC PANELon 03-93-1388Veupzcb [Mass/Vol]9.5 mg/dLNormal8.6-10.3The [facility] HospitalComment on above: Performed By: #### 20357, 96510, 75791, 51573, 74853 #### [facility] [address] [place] [address], USAChloride [Moles/Vol]105 mmol/RGkrdcl70-805Bhk [facility] HospitalComment on above:Performed By: #### 85932, 05718, 27614, 35100, 97547 #### [facility] [address] [place] [address], USACO2 [Moles/Vol]27 mmol/PRfplkb36-95Kad [facility]ville HospitalComment on above:Performed By: #### 65420, 28089, 58515, 65746, 50588 #### [facility] [address] [place] [address], USACreatinine [Mass/Vol]0.81 mg/dLNormal0.60-1.20The [facility] HospitalComment on above:Performed By: #### 12276, 02770, 44298, 47062, 29183 #### [facility] [address] [place] [address], USAGFR/1.73 sq M predicted among blacks MDRD (S/P/Bld) [Vol rate/Area]mL/min/{1.73_m2}Normal>60The [facility] Comment on above:Performed By: #### 58847, 02432, 47072, 58156, 09192 #### [facility] [address] [place] [address], USAGFR/1.73 sq M predicted among non-blacks MDRD (S/P/Bld) [Vol rate/Area]mL/min/{1.73_m2}Normal>60The [facility] Comment on above:Performed By: #### 01844, 54527, 32013, 88134, 41385 #### [facility] [address] [place] [address], USAGlucose [Mass/Vol]115 mg/aUNfrk68-993Utz [facility] HospitalComment on above:Performed By: #### 77737, 94795, 51320, 65876, 99774 #### [facility] [address] [place] [address], USAPotassium [Moles/Vol]3.9 mmol/LNormal3.5-5.1The [facility] HospitalComment on above:Performed By: #### 59650, 99690, 33235, 17905, 86792 #### [facility] [address] [place] [address], USASodium [Moles/Vol]140 mmol/ASsrxge970-930Ovl [facility] HospitalComment on above:Performed By: #### 92253, 58315, 49893, 72447, 37892 #### [facility] [address] [place] [address], USAUrea nitrogen [Mass/Vol]20 mg/dLNormal7-25The [facility] HospitalComment on above:Performed By: #### 91228, 77910, 96069, 32776, 58717 #### [facility] [address] [place] [address], USAPREALBUMINon 89-62-6549Cpgfbvyrzr [Mass/Vol]24.0 mg/dL Xwzggi42.0-34.0The [facility] HospitalComment on above:Performed By: #### 91494, 51902, 31211, 89706, 85406 #### [facility] [address] [place] [address], USATIBIA FIBULA LEFTon 44-62-5866JIUPC FIBULA LEFTUnProMedica Defiance Regional Hospital Department of Radiology [address] [place] [id number] Patient Name: RADHA ZAIDI : 1960 [...] indicated. Electronically signed: Eliezer Randolph. Transcribed by: [id number], User Resident: Electronically Signed by: ELIEZER RANDOLPH @ 02/04/2020 10:34 AMNormalThe Barnesville HospitalTRANSFERRINon 29-04-4168Ocagwcjntcw [Mass/Vol]270 mg/lRCcgklj663-767Zyj [facility] HospitalComment on above:Performed By: #### 70577, 60527, 96315, 90828, 42870 #### [facility] [address] [place] [address], USAVITAMIN D 25-HYDROXYon 11-47-6359WNYQKTN D 25-OH38.5 ng/mL Exthzc29.0-80.0The [facility]ville HospitalComment on above:Result Comment: >80.0 Toxicity possiblePerformed By: #### 87949, 44498, 47845, 01159, 57649 #### [facility] [address] [place] [address], USAFLUORO FOR SURGICAL PROCEDURESon 32-15-5028CSROCG FOR SURGICAL PROCEDURESExam: FLUORO FOR SURGICAL PROCEDURESHistory: ACDF Fusion Findings: Fluoroscopy time was 70 seconds A total of 19 fluoroscopic images were obtained by Dr. Cheng during the anterior cervical discectomy inthe lower cervical spine.IMPRESSION: Impression: Fluoroscopic assistance provided for operative guidance.Interpreted by:DIANA Lealigned by:Eugene Cancino MD4//18Final resultNormalSt. Elizabeth Hospital ([place], [place])Basic Metabolic Panelon 53-74-7339Oijeo gap15 mmol/LCritically high7-13[facility] ([place], [place]) Calcium9.6 mg/dLNormal8.6-10.2MSwedish Medical CenterChloride102 mmol/L Ypewuh86-682QaaxvSt. Elizabeth Hospital ([place], [place])CO223 mmol/DRtyvev50-80BuosbSt. Elizabeth Hospital ([place], [place])Creatinine0.54 mg/dLNormal0.50-0.90[facility] ([place], [place]) eGFR (black)mL/min/{1.73_m2}Normal>60[facility] ([place], [place])Comment on above:Result Comment: >60 mL/min/1.73m2 EGFR, calc. for ages 18 and older using theMDRD formula (not corrected for weight), is valid for stablerenal function. eGFR (MDRD)mL/min/{1.73_m2}Normal>60[facility] ([place], [place])Comment on above:Result Comment: >60 mL/min/1.73m2 EGFR, calc. for ages 18 and older using theMDRD formula (not corrected for weight), is valid for stablerenal function. Glucose mass conc97 mg/vUTewcds80-052KqlbvSt. Elizabeth Hospital ([place], [place])Potassium molar conc4.8 mmol/LNormal3.5-5.1MThe Medical Center of Auroraodium140 mmol/L Pfdikn524-759TszlySt. Elizabeth Hospital ([place], [place])Urea gckfnhun25 mg/dLNormal6-20[facility] ([place], [place])CBC With Platelet No Differentialon 92-14-8166Dwqkuhirkbs distribution width Auto Ratio (RBC)13.3 %Fqhojs95.5-14.5[facility] ([place], [place])Erythrocytes (RBC)4.96 10*6/uLNormal4.20-5.40[facility] ([place], [place]) Hematocrit (HCT)47.1 %Critically high37.0-47.0[facility] ([place], [place]) Hemoglobin mass conc (Bld)16.2 g/dLCritically high12.0-16.0[facility] ([place], [place])MCH32.7 pgCritically high27.0-31.3MSwedish Medical Center MCHC mass conc (RBC)34.4 %Uldvbm80.0-37.0[facility] ([place], [place])MCV95.0 fL Ivcxbd85.0-100.0[facility] ([place], [place])Platelets223 10*3/xQJhwszo155-784 [facility] ([place], [place])WBC (Leukocytes)6.2 10*3/uLNormal4.8-10.8[facility] ([place], [place])Culture, MRSA Screenon 75-04-7036Wjzbnsa, MRSA Screen ORDERED BY: VITO STALLWORTH: Nares Nose COLLECTED: 10/13/17 13:18[facility].: RECEIVED : 10/13/17 13:18Culture, MRSA Screen FINAL 10/14/17 13:59 No MRSA isolatedNoNorth Colorado Medical CenterPartial Thromboplastin Timeon 68-68-9832gEBI66.9 eCerlzl49.6-35.4[facility] ([place], [place])Comment on above:Result Comment: Heparin Therapeutic Range: 38.8 - 54.6 seconds.Prothrombin Timeon 36-82-3284NFI Coag RelTime (PPP)1.0 {INR}NormalSt. Elizabeth Hospital ([place], [place])Comment on above:Result Comment: Recommended INR therapeutic ranges for oral anticoagulanttherapyProphylaxis/treatment of: INR Venous Thrombosis, Pulmonary Embolism 2.0-3Prevention of Systemic Embolism from: Atrial Fibrillation 2.0-3.0 Myocardial Infarction 2.0-3.0 Mechanical Prosthetics Heart Valves 2.5-3.5 Recurrent Systemic Embolism 2.5-3.5Guidelines for patients with coagulopathy, e.g. liver disease:Use the Protime resulted in seconds. Mild 12.9-17.0 sec Moderate 17.1-22.6 sec Severe G.T. 22.6 sec Prothrombin time (PT) Coag time (PPP)10.0 sNormal8.1-13.7[facility] ([place], [place])Type and Screen Capture 3 scrn cellon 84-67-4135Vhlddrfrx (total)PATIENT: DYAN GARCIA LOC: [facility]OTT BILL# : [id number] : 1960 SEX: FORDERED BY: BASIM CHENG ORDERED : 10/13/2017 12:41 COLLECTED: 10/13/2017 13:24ORDER : [id number] RECEIVED : 10/13/2017 13:24 ---TEST NAME RESULT UNITS RANGES ABN FL STABORH Capture A POS FAntibody 3 Cell Scrn Captu NEG F NormalSt. Elizabeth Hospital ([place], [place])Urinalysis, reflex to cultureon 81-84-7621Zkvsqvfsg Ql (U) NegativeNormalNegSt. Mary's Medical CenterUrine Reflexed to CultureNot IndicatedNoNorth [place] Medical CenterUrine, clarityClearNormalClearSt. Elizabeth Hospital ([place], [place])Urine, colorYellowNormalStraw/YellSt. Elizabeth Hospital ([place], [place])Urine, glucose presenceNegativeNormalNegSt. Mary's Medical Center Urine, hemoglobin presenceNegativeNormalNegSt. Mary's Medical Center Urine, ketones presenceNegativeNormalNegSt. Mary's Medical CenterUrine, leukocyte esterase presenceNegativeNormalNegSt. Mary's Medical Center Urine, nitrite presenceNegativeNormalNegSt. Mary's Medical CenterUrine, pH5.5 [pH]Normal5.0-9.0[facility] ([place], [place])Urine, protein presence NegativeNormalNegSt. Mary's Medical CenterUrine, specific gravity1.018 Normal1.005-1.03[facility] ([place], [place])Urine, urobilinogen0.2 {Rajwinder'U}/dLNormal< 2.0[facility] ([place], [place]) Vital Signs Date TimeVital SignValuePerforming BnfuqilvfYjjhsqxd22-07-7199 10:55-0500Body oghgqu927.6 cmJordan Yuan [employer] Work Phone: noHer Campus MediaWxyagpiguz62-64-5767 10:55-0500Body mass index (BMI) [Ratio]28.15 kg/b8LckjuJordan Yuan [employer] Work Phone: [facility] HospitalCfyeibquul43-15-0818 10:55-0500Body rldbco58.39 kgJaroman Brown DO Work Phone: [facility] HospitalIdtwopudhc78-10-0962 18:36-0400Diastolic blood kicsweae15 mm[Hg]John Ball DO Work Phone: 1(356)[address] [place], [place] 4500310-20-2025 18:36-0400 Heart rate72 /minBenjamin Ball DO Work Phone: 1(500)[address] [place], [place] 4500310-20-2025 18:36-0400 Inhaled oxygen flow rate15 L/minBenjamin Ball DO Work Phone: 1(055)[address] [place], [place] 4500310-20-2025 18:36-0400 Respiratory rate16 /minBenjamin Ball DO Work Phone: 1(532)[address] [place], [place] 4500310-20-2025 18:36-0400 SaO2% (BldA) [Mass fraction]94 %John Ball DO Work Phone: 1(616)[address] [place], [place] 4500310-20-2025 18:36-0400 Systolic blood elvwqnhp946 mm[Hg]John Ball DO Work Phone: 1(670)[address] [place], [place] 4500310-20-2025 18:16-0400 Inhaled oxygen rklnafjhitheq750 %John Ball DO Work Phone: 1(224)[address] [place], [place] 4500310-20-2025 15:30-0400 Body .1 cmBenjamin Ball DO Work Phone: 1(274)[address] [place], [place] 4500310-20-2025 15:30-0400 Body apwdnqpihlc02 [degF]John Ball DO Work Phone: 1(621)[address] [place], [place] 4500310-20-2025 15:30-0400 Body .43 kgBenjamin Ball DO Work Phone: 1(788)[address] [place], [place] 4500308-27-2025 09:22-0400 Body nskrxo645.1 cmBenjamin Ball DO Work Phone: 1(637)[address] [place], [place] 4500308-27-2025 09:22-0400 Body mass index (BMI) [Ratio]20.5 kg/i4Jsaootdv Ball DO Work Phone: 1(851)320-[address] [place], [place] 7490108-27-2025 09:22-0400 Body ozutgv22.84 kgBenjamin Ball DO Work Phone: 1([phone])792-[address] [place], [place] 7490108-27-2025 09:22-0400 Diastolic blood jrqcqxxi24 mm[Hg]John Ball DO Work Phone: 1(613)456-[address] [place], [place] 7490108-27-2025 09:22-0400 Heart rate80 /minBenjamin Ball DO Work Phone: [phone])[address]08-27-2025 09:22-0400 Respiratory rate12 /minBenjamin Ball DO Work Phone: 1(891)[address]08-27-2025 09:22-0400 Systolic blood smjewpok734 mm[Hg]John Ball DO Work Phone: 1(721)[address]04-29-2025 14:11-0400 Body xsehil945.1 cmBenjamin Ball DO Work Phone: 1(349)[facility] [place], [place] 7490104-29-2025 14:11-0400 Body mass index (BMI) [Ratio]22.1 kg/l6Tyyjgvpx Ball DO Work Phone: 1(802)[facility] [place], [place] 7490104-29-2025 14:11-0400 Body juztyl67.44 kgBenjamin Ball DO Work Phone: [phone])[address]03-27-2025 14:49-0400 Body nivkay188.6 cmJason Brown DO Work Phone: [facility] HospitalBfnjmrhtcy07-95-7461 14:49-0400Body mass index (BMI) [Ratio]28.15 kg/w2Llqrf Brown DO Work Phone: [facility] HospitalHjgqkuqjmb76-10-8383 14:49-0400Body .39 kgJason Brown DO Work Phone: [facility] HospitalYpbrvmraev29-72-4906 10:34-0400Body .1 cmT[facility]03-18-2025 10:34-0400Body mass index (BMI) [Ratio]22.1 kg/m6HwyhixnchTwin City Hospital03-18-2025 10:34-0400Body veiuwx35.44 kgTwin City Hospital03-18-2025 10:34-0400Diastolic blood mbvrzyko46 mm[Hg][facility]03-18-2025 10:34-0400 Heart rate72 /[facility]03-18-2025 10:34-0400 Respiratory rate16 /[facility]03-18-2025 10:34-0400 SaO2% (BldA) [Mass fraction]97 %[facility]03-18-2025 10:34-0400Systolic blood ixposuct641 mm[Hg][facility] 09-18-2024 10:17-0400Body erkyvj000.6 cmJordan [employer] Work Phone: 1(024)4-[address] [place], [place] [address]Frnnotvcol35-35-4152 10:17-0400Body mass index (BMI) [Ratio]28.15 kg/o4Pbhnq [employer] Phone: [phone])[address]03-11-2025 10:17-0400Body vpfuyo81.39 kgJordan [employer] Work Phone: 6(931)1-[address] [place], [place] [address]Xkglclqjof48-75-9220 15:44-0500Body vxcten047.1 cmTwin City Hospital02-19-2025 15:44-0500Body mass index (BMI) [Ratio]22 kg/k5RmqpoyezdTwin City Hospital02-19-2025 15:44-0500Body weight 60.04 kgTwin City Hospital02-19-2025 15:44-0500Diastolic blood cqgwnegm51 mm[Hg][facility]02-19-2025 15:44-0500Heart rate57 /[facility]02-19-2025 15:44-0500Respiratory rate12 /[facility]02-19-2025 15:44-0500Systolic blood wnrnuzdy097 mm[Hg][facility]01-07-2025 15:06-0500Body ipruic665.6 cmJordan Yuan DO Work Phone: 1(509)[address] [place], [place] 6228901-07-2025 15:06-0500Body mass index (BMI) [Ratio]28.15 kg/v6XohdfJordan Yuan DO Work Phone: 1(045)[address] [place], [place] 6228901-07-2025 15:06-0500Body iktrbq27.39 kgJordan Yuan DO Work Phone: 1(695)[address] [place], [place] 6228911-26-2024 14:20-0500Body .6 cmJordan Yuan DO Work Phone: 1(892)[address] [place], [place] 6228911-26-2024 14:20-0500Body mass index (BMI) [Ratio]28.15 kg/v8UplnyJordan Yuan DO Work Phone: 1(896)[address] [place], [place] 6228911-26-2024 14:20-0500Body temperature 97.5 [degF]Jordan Yuan DO Work Phone: 1(566)[address] [place], [place] 6228911-26-2024 14:20-0500Body upcrod55.39 kgJordan Yuan DO Work Phone: 1(823)[address] [place], [place] 6228910-29-2024 10:38-0400Body puumug157.6 cmJordan Yuan DO Work Phone: 1(755)[address] [place], [place] 6228910-29-2024 10:38-0400Body mass index (BMI) [Ratio]28.15 kg/d8YxkwxJordan Yuan DO Work Phone: 1(186)[address] [place], [place] 6228910-29-2024 10:38-0400Body temperature 97.39 [degF]Jordan Yuan DO Work Phone: 1(404)[address] [place], [place] 6228910-29-2024 10:38-0400Body mfeyco68.39 kgJordan Yuan DO Work Phone: 1(585)[address] [place], [place] 6228910-18-2024 13:08-0400Heart rate80 /min Jordan Yuan [address] [place], [place] 8370910-18-2024 13:08-7163OuF1% (BldA) [Mass fraction]94 %Jordan Yuan [address] [place], [place] 7242810-18-2024 13:08-0400Blood Pressure LocationJordan Yuan [address] [place], [place] 7242810-18-2024 13:08-0400 Diastolic blood tfoeclsw45 mm[Hg]Jordan Yuan [address] [place], [place] 7242810-18-2024 13:08-0400Mean blood bpzxkaox63 mm[Hg]Jordan Yuan [address] [place], [place] 7242810-18-2024 13:08-0400 Systolic blood mm[Hg]Jordan Yuan [address] [place], [place] 7242810-18-2024 13:08-0400 Respiratory rate18 /Cyndy Yuan [address] [place], [place] 7242810-18-2024 11:23-0400Heart rate72 /Cyndy Yuan [address] [place], [place] 7242810-18-2024 11:23-6155OkY7% (BldA) [Mass fraction]100 %Jordan Yuan [address] [place], [place] 7242810-18-2024 11:22-0400Blood Pressure LocationJordan Yuan [address] [place], [place] 7242810-18-2024 11:22-0400 Diastolic blood vafqeidy35 mm[Hg]Jordan Yuan [address] [place], [place] 7242810-18-2024 11:22-0400Mean blood mm[Hg]Jordan Yuan [address] [place], [place] 7242810-18-2024 11:22-0400 Systolic blood lnhnjnik773 mm[Hg]Jordan Yuan [address] [place], [place] 7242810-18-2024 11:22-0400 Respiratory rate18 /minJordan Yuan [address] [place], [place] 7242810-18-2024 11:15-0400Blood Pressure LocationJordan Yuan [address]10-18-2024 11:15-0400Body jjutmgzocad84.16 [degF]Jordan Yuan [address] [place], [place] 7242810-18-2024 11:15-0400 Diastolic blood ydctpkoe27 mm[Hg]Jordan Yuan [address] [place], [place] 7242810-18-2024 11:15-0400Heart rate79 /Cyndy Yuan [address] [place], [place] 7242810-18-2024 11:15-0400Mean blood snkqfhqe78 mm[Hg]Jordan Yuan [address] [place], [place] 7242810-18-2024 11:15-0400 Respiratory rate20 /Cyndy Yuan [address] [place], [place] 7242810-18-2024 11:15-2836KrG3% (BldA) [Mass fraction]100 %Jordan Yuan [address] [place], [place] 7242810-18-2024 11:15-0400 Systolic blood mm[Hg]Jordan Yuan [address] [place], [place] 7242810-18-2024 11:05-0400Mean blood mm[Hg]Jordan Yuan [address] [place], [place] 7242810-18-2024 11:05-0400 Respiratory rate16 /Cyndy Yuan [address] [place], [place] 8370910-18-2024 10:50-0400Mean blood mmlmgumc45 mm[Hg]Jordan Yuan [address] [place], [place] 7242810-18-2024 10:50-0400 Respiratory rate9 /Cyndy Yuan [address] [place], [place] 7242810-18-2024 10:10-0400Body rzcgnmaubqa25.16 [degF]Jordan Yuan [address] [place], [place] 7242810-18-2024 10:05-0400 Respiratory rate12 /Cyndy Yuan [facility]10-18-2024 06:23-0400Mean blood pimkacov32 mm[Hg]Jordan Yuan [facility]10-18-2024 06:22-0400Body vexssfgngpx34.7 [degF]Jordan Yuan [facility]10-08-2024 15:14-0400Body pheles889.1 cmT[facility] Hospital10-08-2024 15:14-0400Body mass index (BMI) [Ratio]23.1 kg/h8FfzslurdnTwin City Hospital10-08-2024 15:14-0400Body evidou05.16 [facility]10-08-2024 15:14-0400Diastolic blood jbndyoej84 mm[Hg][facility] 04-17-2024 15:14-0400Heart rate84 /[facility] 04-17-2024 15:14-0400Respiratory rate12 /[facility] 04-17-2024 15:14-0400Systolic blood uhgegrcl631 mm[Hg][facility]09-17-2024 16:24-0400Body mojclh816.1 cmT[facility] City Hospital 03-27-2024 16:24-0400Body mass index (BMI) [Ratio]23.9 kg/q9GtejjppusTwin City Hospital09-17-2024 16:24-0400Body buhhwn62.31 [facility]09-17-2024 16:24-0400Diastolic blood bkejtylf88 mm[Hg][facility]09-17-2024 16:24-0400Heart rate87 /[facility]09-17-2024 16:24-0400Respiratory rate12 /[facility]09-17-2024 16:24-0400Systolic blood oubgjcss125 mm[Hg][facility]09-09-2024 12:28-0400Diastolic blood fjchiouz53 mm[Hg]Jordan Yuan [address] [place], [place] [id number] 12:28-0400 Systolic blood mm[Hg]Jordan Yuan [address] [place], [place] [id number] 12:27-0400Blood Pressure LocationJordan Yuan [address]09-09-2024 12:27-0400Body neavwtmhcbr37.88 [degF]Jordan Yuan [address] [place], [place] [id number] 12:27-0400 Diastolic blood xotbiwif17 mm[Hg]Jordan Yuan [address]09-09-2024 12:27-0400Heart rate75 /minJordan Yuan [address] [place], [place] [id number] 12:27-0400Mean blood mm[Hg]Jordan Yuan [address]09-09-2024 12:27-0400 Respiratory rate15 /minJordan Yuan [address] [place], [place] [id number] 12:27-1848IlG0% (BldA) [Mass fraction]97 %Jordan Yuan [address] [place], [place] [id number] 12:27-0400 Systolic blood pxbnulmt349 mm[Hg]Jordan Yuan [address] [place], [place] [id number] 09:29-0400Body .1 [facility] 09:29-0400Body mass index (BMI) [Ratio]24.1 kg/l0IyzzgxtetTwin City Hospital08-21-2024 09:29-0400Body ekotcb43.82 [facility]08-21-2024 09:29-0400Diastolic blood nzjeeols35 mm[Hg][facility] 02-29-2024 09:29-0400Heart rate74 /[facility] 02-29-2024 09:29-0400Respiratory rate12 /[facility] 02-29-2024 09:29-0400Systolic blood mm[Hg][facility]06-19-2024 15:31-0400Body ybclyt112.1 cmTwin [facility] 15:31-0400Body mass index (BMI) [Ratio]25.7 kg/p0LhsxdivchT[facility]06-19-2024 15:31-0400Body .08 [facility]06-19-2024 15:31-0400Diastolic blood vkiruydi37 mm[Hg][facility]06-19-2024 15:31-0400Heart rate92 /[facility]06-19-2024 15:31-0400Respiratory rate12 /[facility]06-19-2024 15:31-0400Systolic blood yvvtjggy274 mm[Hg][facility]05-07-2024 15:42-0400Body wnqtex862.6 [employer] Work Phone: [phone] [place], [place] [address]Nnhlhnqsya35-47-1253 15:42-0400Body mass index (BMI) [Ratio]28.15 kg/c2[employer] Work Phone: [facility] HospitalFsnipauwyd86-27-8391 15:42-0400Body tasszz15.39 kgJordan Yuan [employer] Work Phone: [phone] [place], [place] [address]Lrkqrdigod82-84-2894 15:16-0400Body hifuaa856.1 [facility]03[facility] 15:16-0400Body mass index (BMI) [Ratio]27.8 kg/r7BlblfnatqTwin City Hospital03-20-2024 15:16-0400Body dnljer55.92 [facility]03-20-2024 15:16-0400Diastolic blood jldpxakz09 mm[Hg][facility]03-20-2024 15:16-0400 Heart rate80 /[facility]03-20-2024 15:16-0400 Respiratory rate12 /minT[facility]03-20-2024 15:16-0400 Systolic blood bmwwyvnn800 mm[Hg][facility]02-26-2024 21:48-0500Body fjywqp506.37 cmBenjamin Ball Other [employer] Other 02-26-2024 16:33-0500Body nhudgh606.1 cmT[facility]02-26-2024 16:33-0500Body mass index (BMI) [Ratio]28.5 kg/n4HvhhhiqjvTwin City Hospital02-26-2024 16:33-0500Body pdojvv96.79 kg [facility]02-26-2024 16:33-0500Diastolic blood clvupdih72 mm[Hg][facility]02-26-2024 16:33-0500Heart rate97 /min [facility]02-26-2024 16:33-0500Systolic blood bkjutybv875 mm[Hg][facility]02-08-2024 15:40-0500Body .6 cm Jordan Yuan DO Work Phone: [email or web address] Khxsgdzpjz99-64-9058 15:40-0500Body mass index (BMI) [Ratio]28.15 kg/o8CnffgJordan Yuan [employer] Work Phone: noHer Campus MediaUwxqbawzhd97-76-1144 15:40-0500Body temperature 97.11 [degF]Jordan Yuan DO Work Phone: noHer Campus MediaJmfybphily79-44-8639 15:40-0500Body bjuezr83.39 kgJordan Yuan [employer] Work Phone: noHer Campus MediaOarvwwbgoa87-48-5984 15:00-0500Body ysdhym055.37 cmBenjamin Ball Other [employer] Other 02-07-2024 15:00-0500Body mass index (BMI) [Ratio] 28.12 kg/q1Npwmhqsq Ball Other [employer] Other 02-07-2024 15:00-0500Body qurknq82.84 kgBenjamin Ball [facility] [employer] Other 02-07-2024 15:00-0500Diastolic blood lwbbqxev32 mm[Hg] John Ball [facility] [employer] Other 02-07-2024 15:00-0500Respiratory rate12 /minBenjamin Ball [facility] [employer] Other 02-07-2024 15:00-0500Systolic blood yvdrzreq208 mm[Hg] John Ball [facility] [employer] Other 09-28-2023 14:00-0400Body xbdrjbeksna52.52 [degF]Jordanroman Yuan [facility]09-28-2023 14:00-0400 Diastolic blood njgmfsoo09 mm[Hg]Jordan Yuan [facility]09-28-2023 14:00-0400Heart rate88 /Cyndy Yuan [facility]09-28-2023 14:00-0400Mean blood eutiggwz54 mm[Hg]Jordan Anderson [facility]09-28-2023 14:00-4488ZvQ1% (BldA) [Mass fraction]94 %Jordan Yuan [facility]09-28-2023 14:00-0400 Systolic blood ncxjnrso634 mm[Hg]Jordan Anderson [facility]09-28-2023 08:47-0400 Diastolic blood zzfsjetw06 mm[Hg]Jordan Anderson [facility]09-28-2023 08:47-0400 Systolic blood mm[Hg]Jordan Yuan [address] [place], [place] [id number] 07:45-0400Blood Pressure LocationJordan Yuan [address] [place], [place] [id number] 07:45-0400Body vmhwgzajvwi84.88 [degF]Jordan Yuan [address] [place], [place] [id number] 07:45-0400 Diastolic blood mm[Hg]Jordan uYan [address] [place], [place] [id number] 07:45-0400Heart rate72 /Cyndy Yuan [address] [place], [place] [id number] 07:45-0400 Hourly RoundingJordan Yuan [address] [place], [place] [id number] 07:45-0400Mean blood isrfviso18 mm[Hg]Jordan Yuan [address] [place], [place] [id number] 07:45-0400 Promise to ReturnJordan Yuan [address] [place], [place] [id number] 07:45-0400 Respiratory rate16 /Cyndy Yuan [address] [place], [place] [id number] 07:45-1722PeA7% (BldA) [Mass fraction]96 %Jordan Yuan [address] [place], [place] [id number] 07:45-0400 Systolic blood afivltqw316 mm[Hg]Jordan Yuan [address] [place], [place] [id number] 06:17-0400 Hourly RoundingJordan Yuan [address] [place], [place] [id number] 06:17-0400 Promise to ReturnJordan Yuan [address] [place], [place] [id number] 05:05-0400 Hourly RoundingJordan Yuan [address] [place], [place] [id number] 05:05-0400 Promise to ReturnJordan Yuan [address] [place], [place] [id number] 22:20-0400Blood Pressure LocationJordan Yuan [address] [place], [place] [id number] 22:20-0400Body afolrgqpirj65.24 [degF]Jordan Yuan [address] [place], [place] [id number] 22:20-0400Heart rate74 /Cyndy Yuan [address] [place], [place] [id number] 22:20-0400Mean blood mm[Hg]Jordan Yuan [address] [place], [place] [id number] 22:20-0400 Respiratory rate16 /Cyndy Yuan [address] [place], [place] [id number] 22:20-6830ThQ7% (BldA) [Mass fraction]93 %Jordan Yuan [address] [place], [place] [id number] 20:10-0400Heart rate65 /Cyndy Yuan [address] [place], [place] [id number] 20:01-0400Body wvvtfktyrod53.34 [degF]Jordan Yuan [address] [place], [place] [id number] 20:00-0400Mean blood ujqpcfcq70 mm[Hg]Jordan Yuan [address] [place], [place] [id number] 16:17-0400Mean blood tfhfylrj92 mm[Hg]Jordan Yuan [address] [place], [place] [id number] 16:16-0400Body nprozawxdkf78.52 [degF]Jordan Yuan [address] [place], [place] [id number] 13:49-0400Mean blood xzpyhect37 mm[Hg]Jordan Yuan [address]09-27-2023 12:45-0400 Respiratory rate13 /Cyndy Yuan [address] [place], [place] [id number] 12:35-0400 Respiratory rate10 /Cyndy Yuan [address] [place], [place] [id number] 12:20-0400 Respiratory rate17 /Cyndy Yuan [address] [place], [place] [id number] 11:37-0400Body jtycitvzreq71.98 [degF]Jordan Yuan [address] [place], [place] [id number] 06:39-0400Heart rate68 /Cyndy Yuan [address] [place], [place] [id number] 14:52-0400 Diastolic blood mm[Hg]Jordan Yuan [address] [place], [place] [id number] 14:52-0400Heart rate67 /Cyndy Yuan [address] [place], [place] [id number] 14:52-0400Mean blood zsivziqq99 mm[Hg]Jordan Yuan [address] [place], [place] [id number] 14:52-0400 Systolic blood mm[Hg]Jordan Yuan [address] [place], [place] [id number] 14:52-0400Heart rate68 /Cyndy Yuan [address] [place], [place] [id number] 14:52-6424CqS6% (BldA) [Mass fraction]99 %Jordan Yuan [address] [place], [place] [id number] 14:52-0400 Diastolic blood qrqjzfyy73 mm[Hg]Jordan Yuan [facility]09-14-2023 14:52-0400Mean blood qdicffir45 mm[Hg]Jordan Yuan [facility]09-14-2023 14:52-0400 Systolic blood mm[Hg]Jordan Yuan [facility]09-14-2023 14:51-0400 Respiratory rate16 /minJordan Yuan [facility]07-03-2023 15:00-0400Body lbwlbi546.37 cmBenjamin Ball Other [facility] [employer] Other 07-03-2023 15:00-0400Body mass index (BMI) [Ratio] 27.04 kg/m5Unskiybu Ball Other [facility] [employer] Other 07-03-2023 15:00-0400Body pyxlos05.84 kgBenjamin Ball Other [facility] [employer] Other 07-03-2023 15:00-0400Diastolic blood twdyqehx34 mm[Hg] John Ball Other [facility] [employer] Other 07-03-2023 15:00-0400Respiratory rate12 /minBenjamin Ball Other [employer] Other 07-03-2023 15:00-0400Systolic blood xdotyvqk027 mm[Hg] John Ball Other [employer] Other 06-01-2023 09:00-0400Body eowezp179.37 cmBenjamin Ball Other [employer] Other 06-01-2023 09:00-0400Body mass index (BMI) [Ratio] 27.33 kg/n0Doxckucb Ball Other [employer] Other 06-01-2023 09:00-0400Body cyacwj20.66 kgBenjamin Ball Other [employer] Other 06-01-2023 09:00-0400Diastolic blood tdtjdoxt67 mm[Hg] John Ball Other [employer] Other 06-01-2023 09:00-0400Respiratory rate12 /minBenjamin Ball Other [employer] Other 06-01-2023 09:00-0400Systolic blood aiwttruo114 mm[Hg] John Ball Other [employer] Other 05-02-2023 15:00-0400Body .37 cmBenjamin Ball Other [employer] Other 05-02-2023 15:00-0400Body mass index (BMI) [Ratio] 27.36 kg/v1Flvvootq Ball Other [employer] Other 05-02-2023 15:00-0400Body ahdpkr17.75 kgBenjamin Ball Other [employer] Other 05-02-2023 15:00-0400Diastolic blood ehvuoidu18 mm[Hg] John Ball Other [employer] Other 05-02-2023 15:00-0400Respiratory rate12 /minBenjamin Ball Other [employer] Other 05-02-2023 15:00-0400Systolic blood wepnozob722 mm[Hg] John Ball Other [employer] Other 01-16-2023 16:30-0500Body ucmuqc895.37 cmBenjamin Ball Other [employer] Other 01-16-2023 16:30-0500Body mass index (BMI) [Ratio] 26.28 kg/t6Nlszvnqb Ball Other [employer] Other 01-16-2023 16:30-0500Body iioecl20.76 kgBenjamin Ball Other [employer] Other 01-16-2023 16:30-0500Diastolic blood gudgehmw66 mm[Hg] John Ball Other [employer] Other 01-16-2023 16:30-0500Respiratory rate12 /minBenjamin Ball Other [employer] Other 01-16-2023 16:30-0500Systolic blood mm[Hg] John Ball Other [employer] Other Encounters Encounter DateEncounter TypeCare ProviderFacilityStart: 05-13-2025 End: 84-63-5885pvmfwoqaizVHHSP A BROWNNot AvailableStart: 05-13-2025 End: 40-39-9846Hyfeaxc encounter procedureJordan Yuan DO Work Phone: noms [facility] OrthopaedicsComment on above:Hx of total shoulder replacement, right (Primary Dx)Start: 05-13-2025 End: 53-34-9403hrfnjjzhbeEJYDN A BROWNNot AvailableStart: 05-13-2025 End: 76-45-2976innsirhzcaVDUBJ A BROWNNot AvailableStart: 04-29-2025 End: 89-79-4217Iihtfnqbe department patient visitBegloria Ashby DO Work Phone: [phone]-Mskqtvjzm Room Work Phone: Start: 25-66-8549xcvvrfrvxiLzlgvrfd Ball DO Work Phone: [facility] Work Phone: Start: 13-57-3539Zcg-patient / Non-visitBenjamin Ball DO-[facility] Work Phone: Start: 00-89-4073Uem-patient / Non-visitBenjamin Ball DO-[facility] Work Phone: Start: 03-06-2025 End: 75-05-2981dpdloppfezXbkulqlu Ball DO Work Phone: [facility] Work Phone: Start: 03-06-2025 End: 31-89-5016Gxjmoqq encounter procedureBentheresamin Ball DO-[facility] Work Phone: Start: 03-04-2025 End: 87-11-9969ukicpswbvzHiqqjqw Vytautas Giedraitis MDFacility:[facility] [place] Start: 12-10-2024 End: 47-84-3192nyoxxaunxoMBZNRB [facility] Start: 11-19-2024 End: 47-20-4451aevvlkdhqzLapjevi Vytautas Giedraitis MDFacility:[facility] Start: 11-06-2024 End: 82-02-9694zcsizbbltcBhmauxok Ball DO Work Phone: [facility] Work Phone: Start: 11-06-2024 End: 64-78-3836Fwyivrn encounter procedureBenwali Ball DO Work Phone: [facility] Work Phone: Start: 11-06-2024 End: 28-10-1188Bqnkvfk encounter procedureBenjamin Ball DO Work Phone: [facility] Start: 11-06-2024 End: 08-63-1791toppqfnimaKsqgesst Ball DO Work Phone: [facility] Work Phone: Start: 10-29-2024 End: 36-06-5025sovkodescsMeeifzr Vytautas Giedraitis MDFacility:[facility] Start: 10-08-2024 End: 49-01-8758vcolxpudpkIttcrwg Vytautas Giedraitis MDFacility:[facility] [place] Start: 10-04-2024 End: 94-85-8030Rwsglie encounter procedureJordan Yuan DO Work Phone: [facility]OM[facility] NB ORTHOComment on above:Complete tear of left rotator cuff, unspecified whether traumatic (Primary Dx)Start: 10-04-2024 End: 56-61-6670tzcgktpowkOJUDV A BROWNNot AvailableStart: 10-04-2024 End: 57-55-0602Hbksdu flowsheetJordan Rogers Brown DO Work Phone: NOMS ORTHOStart: 10-04-2024 End: 78-17-6399Iiibud flowsheetJordan oRgers Brown DO Work Phone: NOMS ORTHOStart: 09-28-2024 End: 29-47-8792sgxqxasjsqEcevj A BrownFacility:FTMCStart: 09-25-2024 End: 18-15-4555blufwrbofhJmceftiuvNorwalk Memorial Hospital Work Phone: Start: 09-25-2024 End: 92-53-3778Awjuron encounter procedureColumbus Regional Healthcare System Phys[facility] Nephrology Hoang Work Phone: Start: 09-18-2024 End: 68-52-5251Kmafqre encounter procedureJordan Yuan DO Work Phone: NOM[facility] NB ORTHOComment on above:S/P arthroscopy of left shoulder (Primary Dx)Start: 09-18-2024 End: 26-41-3625muwyntnhzxPWMSS A BROWNNot AvailableStart: 73-70-8674Jxp-patient / Non-visitColumbus Regional Healthcare System Physician [facility] Work Phone: Start: 08-29-2024 End: 62-04-4165gwbtymjgpoCrrrvtaabNorwalk Memorial Hospital Work Phone: Start: 08-29-2024 End: 98-07-9336Qtxswvusz for general adult medical examination without abnormal findingsBrown Memorial Hospitaltart: 08-29-2024 End: 73-49-3312Osylbzw encounter procedureColumbus Regional Healthcare [facility] Physician [facility] Work Phone: Start: 41-04-1659Zxigujc encounter statusBrown Memorial Hospitaltart: 07-17-2024 End: 80-01-0894Dahokob encounter procedureJordan Yuan DO Work Phone: noMS NB ORTHOComment on above:S/P arthroscopy of left shoulder (Primary Dx)Start: 07-17-2024 End: 30-25-8849nmixbrxvfrCKMTH A BROWNNot AvailableStart: 07-17-2024 End: 16-41-4553Rpzbxa flowsheetJordan Yuan DO Work Phone: NOMS ORTHOStart: 07-17-2024 End: 17-55-1001Isudhe Randall Yuan DO Work Phone: NOMS ORTHOStart: 02-62-9126Lyn-patient / Non-visit [facility] Work Phone: Start: 06-14-2024 End: 10-12-8082Btxedid encounter procedureColumbus Regional Healthcare [facility] Physician [facility] Work Phone: Start: 06-05-2024 End: 62-34-7059odiocwhglhPJCAZ A BROWNNot AvailableStart: 06-05-2024 End: 70-94-8565Nntfkaq encounter procedureJordan Yuan DO Work Phone: NOMS NB ORTHOComment on above:Status post shoulder surgery (Primary Dx)Start: 05-09-2024 End: 69-22-9540dnadylaeytSvzjgubaoNorwalk Memorial Hospital Work Phone: Start: 05-09-2024 End: 68-44-9564Zdmabrk encounter procedureFirpareshs Physician Group-[facility] Work Phone: Start: 05-08-2024 End: 50-57-1972Quxrgvh encounter Radha Yuan DO Work Phone: noms NB ORTHOComment on above:Status post shoulder surgery (Primary Dx)Start: 04-27-2024 End: 17-74-1665Loskfyflj to same day surgery burnsvilleJordan Yuan [facility] Start: 04-27-2024 End: 16-45-8148cuykckquavMX Jordan YuanFacility:FTMCStart: 04-17-2024 End: 32-21-1487xebqgxwmaxEzhdvbmqxNorwalk Memorial Hospital Work Phone: Start: 04-17-2024 End: 33-42-2149Eusqilq encounter procedureFirpareshs Physician Group-[facility] Work Phone: Start: 04-10-2024 End: 99-11-5884aaapcziveiOqlldyoosNorwalk Memorial Hospital Work Phone: Start: 04-10-2024 End: 13-30-8694Ngpslms encounter procedureFirberkeleys Physician Group-[facility] Work Phone: Start: 03-30-2024 End: 77-67-8565tvewkrmgpwZkahcgikpNorwalk Memorial Hospital Work Phone: start: 03-30-2024 End: 53-35-2863Uecpkwj encounter procedureFirberkeleys Physician Group-[facility] Work Phone: start: 03-27-2024 End: 84-70-3552cljtmtqrqbNweundgcoNorwalk Memorial Hospital Work Phone: start: 03-27-2024 End: 14-33-6395Urxgrlc encounter procedureColumbus Regional Healthcare System Physician [facility] Work Phone: Start: 90-83-9673Urepcsq encounter statusBrown Memorial Hospitaltart: 03-19-2024 End: 78-59-3470ysyiebwycrPseqi A BrownFacility:FTMCStart: 03-19-2024 End: 17-36-9521Zzshkcp encounter Radha Yuan [facility] Start: 02-29-2024 End: 50-90-1663qvceruujpaBizeniafrBellevue Hospital Work Phone: Start: 02-29-2024 End: 50-28-2355Mfgvgsp encounter procedureColumbus Regional Healthcare System Physician [facility] Work Phone: Start: 82-37-4835Xen-patient / Non-visitColumbus Regional Healthcare System Physician Group-[facility] Work Phone: Start: 92-79-9396Dkz-patient / Non-visitColumbus Regional Healthcare System Physician Group-[facility] Work Phone: Start: 12-28-2023 End: 37-06-4429hfymxpqtprWrcvqbgeuBellevue Hospital Work Phone: Start: 12-28-2023 End: 09-86-7246Jscbhkm encounter procedureColumbus Regional Healthcare System Physician GroupProMedica [facility] Work Phone: Start: 11-15-2023 End: 30-12-0182Vmszlxx encounter Radha Yuan DO Work Phone: noms NB ORTHOComment on above:Status post shoulder surgery (Primary Dx)Start: 09-28-2023 End: 51-23-0101auznfoyoglOqfiqpqmeBellevue Hospital Work Phone: Start: 09-28-2023 End: 57-82-1247Lhveuaf encounter procedureJamirtwin county regional healthcare Physician Group-[facility] Work Phone: Start: 09-06-2023 End: 56-27-6019wmkqtyoabiCniaw Sue AndersonFacility:FTMCStart: 09-06-2023 End: 64-36-0828Fshpclb encounter procedureJordan Yuan [facility] Start: 09-06-2023 End: 85-88-0009Jzwucgaev Result EncounterJordan Yuan DO Work Phone: [facility]K[employer] External Department UnsolicitedStart: 09-06-2023 End: 54-13-4950Ssmuesvod Result EncounterJordan Yuan DO Work Phone: NOWM External Department UnsolicitedStart: 09-05-2023 Non-patient / Non-visitFirelands Physician GroupVirgin[facility] Work Phone: Start: 09-05-2023 End: 74-58-9479fshwerqyfwZedolyha Symone Other noflatev Other Start: 07-02-4314Xjlvjxndu encountergloria [facility] Medical Centertart: 42-45-0200Omf-patient / Non-visitFirelands Physician GroupVirgin[facility] Work Phone: Start: 58-74-3599Vze-patient / Non-visitFirelands Physician GroupVirginia [facility] Work Phone: Start: 08-18-2023 End: 48-16-1786Vqdvlut encounter procedureJordan Yuan DO Work Phone: NOUC NB ORTHOComment on above:Right shoulder pain, unspecified chronicity (Primary Dx)Start: 70-33-9219Mpulx abstractShanaroman Rogers Anderson DO Work Phone: NOMS NB ORTHOStart: 08-17-2023 End: 27-82-7800plbakuzdmeVgeszrid Symone Other [employer]fl[employer] Other Start: 71-16-8069Czdofefrm for general adult medical examination without abnormal findingsBenwali NorrisG [facility] ClinicStart: 40-83-8015Uycmcmth preventive med est patient 40-64yrsBenwali BallFPG [facility] ClinicStart: 06-28-2023 End: 89-76-2830tllmfpntasHieyaorh Ball Other [employer]flatev Other Start: 76-55-1639Ptblod outpatient visit 15 minutes John JrG [facility] ClinicStart: 05-06-2023 End: 76-14-1112xzvrzczfrwVvflcafa Ball Other [employer] Other Start: 19-03-9777Jcnrnxgdr encounterBenwali BallALFREDG [facility] ClinicStart: 04-26-2023 End: 64-46-5273joyxllatmdEhsqsklv Ball Other [employer] Other Start: 86-66-2190Jyhqfuynr encounterBenwali NorrisG [facility] ClinicStart: 04-06-2023 End: 13-79-0947Kseldyovx to same day surgery Domingo Yuan [facility] Start: 04-06-2023 End: 08-91-7206nztmsqdatzCahtp A BrownFacility:FTMCStart: 03-31-2023 End: 79-90-5404jgvheyhhouTmxpuhte Ball Other [employer]fl[employer]v Other Start: 84-61-9766Uombzuoep encounterBenwali NorrisG [facility] ClinicStart: 03-26-2023 End: 09-31-2274zvckwculiwIqgqpvtp Ball Other [employer] Other Start: 33-96-7593Uzdxalvvn encounterBenjamin BallFPG [facility] ClinicStart: 03-24-2023 End: 92-98-0069bhmxybpeqeOpyye Sue AndersonFacility:FTMCStart: 03-24-2023 End: 09-99-9095Pgtttmn encounter procedureJordan Yuan [facility] Start: 03-21-2023 End: 01-84-4364xnemfdgjpuDgpznljq Ball Other [employer]fl[employer]v Other Start: 76-66-8681Duzimojmq encounterBenjamin BallFPG [facility] ClinicStart: 01-12-2023 End: 20-08-0524efetozpwikFknghbtw Ball Other [employer]v Other Start: 98-39-0563Fojqvvril encounterBenjamin BallFPG [facility] ClinicStart: 01-10-2023 End: 15-56-3213oaljteaqbqHyxpupiv Ball Other [employer]v Other Start: 99-32-7122Anscvf outpatient visit 15 minutes John BallFPG [facility] ClinicStart: 12-14-2022 End: 77-14-7676qgmyimofevVcrvtmoy Ball Other [employer]flatev Other Start: 52-97-9884Ohgyrisky encounterBenjamin BallFPG [facility] ClinicStart: 12-10-2022 End: 57-12-3780snqvvifryhAnoylodm Ball Other [employer]flatev Other Start: 93-77-9502Rkysjoaro encounterBenjamin BallFPG [facility] ClinicStart: 12-09-2022 End: 87-83-0821ewvkrhnopmBmbvnezy Ball Other [employer]flatev Other Start: 00-57-9522Xzylwv outpatient visit 15 minutes John BallFPG [facility] ClinicStart: 11-09-2022 End: 37-04-3200frobwcngjiIzjsecmc Ball Other [employer]flatev Other Start: 86-23-0095Sbprzd outpatient visit 15 minutes John BallFPG [facility] ClinicStart: 73-56-1178tibegcqxzcZRQFWATSGNYY LAKSHMIPATHY .Facility:A0Vjyev: 10-07-2022 End: 01-99-5143vqdmtvnouuUXMGVACCUNZC LAKSHMIPATHY .Facility:P3Extee: 09-22-2022 End: 27-34-6130wqprhudrpiVcdvrbms Ball Other [employer]flatev Other Start: 49-92-3059Wzuqzicqa encounterBenjamin BallFPG [facility] ClinicStart: 09-16-2022 End: 36-87-4361fwhupgyulpRT JOHN BALLFacility:Q8Iicfi: 08-14-2022 End: 94-36-4061opbjfbzplyAdqpwavg Ball Other [employer]v Other Start: 22-17-7190Nvzepicxt encounterBenjamin BallFPG [facility] ClinicStart: 07-26-2022 End: 33-11-1501oaunvilyisMnrkvgpx Ball Other [employer]fl[employer]v Other Start: 69-85-1516Yawjjb outpatient visit 15 minutes John BallFPG [facility] ClinicStart: 87-99-0348Lxxznu wellness visit John Ashby Other noflatev Other Start: 39-79-8785Mvlzhrt encounter procedureBenjamin Ball Other noflatev Other Start: 07-09-2022 End: 46-94-8236refbxyvyhxLZ JOHN ASHBYFacility:Z9Qdofc: 98-90-4967Vuhhx health examinationBenjarosa Ashby Other [facility] [employer] Other Start: 46-02-5960Wezbikcrfrsxv examination normal John Ashby Other [facility] [employer] Other Start: 2022 End: 83-92-8451dyxztgzminAE JOHN ASHBYFacility:O8Zujgz: 06-01-2022 End: 81-60-9051kxqxzomjgjBC JOHN ASHBYFacility:D8Oeexj: 73-32-1880Ctmtjkitu for general adult medical examination without abnormal findingsDR JOHN ASHBY [facility] Hamiltontart: 05-20-2022 End: 67-07-8718ewwwxhtqhzYO JOHN ASHBYFacility:S5Heujh: 05-20-2022 End: 49-66-9915Jitdehqzb for general adult medical examination without abnormal findingsDR JOHN ASHBYFacility:L6Smxbh: 05-20-2022 End: 53-60-9486ytkrdalsubXQ JOHN ASHBYFacility:N0Zdrwl: 99-79-6102ijlxjcunwx KATE BOESFacility:B8Lcxfo: 02-17-2022 End: 59-30-5338jvopjiensgYQGV OLIVAS .Facility:A2Azwbm: 02-16-2022 End: 18-00-6190gijccydbwnAZ SO S AMOS .Facility:Y0Eigdj: 02-02-2022 End: 12-89-6154hdgjxgtmdbPZ SO S AMOS .Facility:S2Fukhp: 12-24-2021 ambulatoryMELISSA BOESFacility:I1Ihpcd: 10-22-2021 End: 83-43-2893qctcutqifoINTW OLIVAS .Facility:D3Vwmrs: 03-12-2020 End: 25-24-3068Jqwgjbz encounter procedureNABIL EBRAHEIMFacility:UTMCStart: 03-05-2020 End: 88-30-7997Zlneemj encounter procedureNABIL EBRAHEIMFacility:UTMCStart: 10-20-2017 End: 73-01-3442XenenyorvyZQKansas City VA Medical Centertart: 10-13-2017 End: 06-64-0329WprgdemqkzKEJefferson Memorial Hospital Procedures DateProcedureProcedure DetailPerforming ClinicianStart: 75-18-4575Atbqa shoulder complete minimum 2 viewsJason A Brown DO Work Phone: Start: 00-54-6168Hikvq X-ray of right shoulderBenjamin Ball DO Work Phone: Start: 03-74-8457Uopdv X-ray of right shoulderBenjamin Ball DO Work Phone: Start: 81-16-1067Kzxvz X-ray of left shoulderBenjamin Ball DO Work Phone: Start: 34-79-8391Plcwvicxhnmtbc aspir&/inj major jt/bursa w/usJason A Brown DO Work Phone: Start: 65-18-4787Otefn shoulder complete minimum 2 viewsJason A Brown DO Work Phone: Start: 88-00-4023Fkdsltsgpys of shoulderJason Brown Start: 10-73-1494Ygjqs shoulder complete minimum 2 viewsJason A Brown DO Work Phone: Start: 20-14-7352NE UPPER EXTREMITY W/O CONTRAST RIGHT Jordan A Brown DO Work Phone: Start: 59-85-0413EHUJ LAB MISCELLANEOUS-LCJason A Brown DO Work Phone: Start: 04-67-4798Glerk shoulder complete minimum 2 viewsJason A Brown DO Work Phone: Start: 18-18-6443Syzlv shoulder replacementJason [employer] Start: 37-83-7091ZSCGYX KNEE AREA SURGERYCOLLEEN LANCZ Start: 27-11-5271GGC BONE 20 SQ CM/<MARYURI EBRAHEIMStart: 48-25-7808VJLPELZYW OF FIBULA FRACTURENABIL EBRAHEIMStart: 66-84-6930ZHAKL OXIMETRY, CONTINUOUSBO BASIM Start: 85-83-4911TDYTP OXIMETRY, CONTINUOUSBO YOOStart: 88-28-2881MQTAOAJBL PATIENTBO YOOStart: 38-49-7409XKFFFZX STATUS (DIRECT)BARRY YOOStart: 10-21-2017 PULSE OXIMETRY, CONTINUOUSBO YOOStart: 95-55-7296CAVQTMHD OXYGEN THERAPY PROTOCOLBO YOOStart: 76-90-5560DGLWJ OXIMETRY, CONTINUOUSBO YOOStart: 10-21-2017 DIET CLEAR LIQUIDBO YOOStart: 28-72-5474YSNIH OXIMETRY, CONTINUOUSBO YOOStart: 29-86-7618PZZOX WEIGHTSBO YOOStart: 07-66-5090GXQUZG AND OUTPUTBO YOOStart: 43-64-1126KZDQY OXIMETRY, CONTINUOUSBO YOOStart: 11-52-7138LOVHJ OXIMETRY, CONTINUOUSBO YOOStart: 67-15-9018MMANX OXIMETRY, CONTINUOUSBO YOOStart: 93-16-3875TICWN INTERMITTENT PNEUMATIC COMPRESSION DEVICEBO YOOStart: 10-20-2017 ACTIVITY TOLERATEDBO YOOStart: 81-16-2799UFPIUGZ DIET TOLERATED (NURSING COMMUNICATION)BARRY YOOStart: 06-04-6789IFTJKCQH PATIENTBO YOOStart: 10-20-2017 ELEVATE HOBBO YOOStart: 15-50-5757EYGN CODEBO YOOStart: 08-58-9167VCTLFFQI OXYGEN THERAPY PROTOCOLBO YOOStart: 65-79-0569FVLBPJ AND OUTPUTBO YOOStart: 37-65-3575MVBTE/VASCULAR CHECKSBO YOOStart: 71-18-1559GQKQQNA COMMUNICATIONBO YOOStart: 98-55-9859FAJVR CERVICAL COLLARBO YOOStart: 95-12-7190XSANJ OXIMETRY, CONTINUOUSBO YOOStart: 37-59-2830EGKUTQPAW MONITORINGBO YOOStart: 10-20-2017 TOBACCO CESSATION EDUCATIONBO YOOStart: 38-72-0862OEWFO SIGNSBO YOOStart: 08-44-3085DUJLQQB STATUS (FROM ED OR OR/PROCEDURAL)BARRY YOOStart: 10-20-2017 TELEMETRY MONITORINGBO YOOStart: 51-12-2670VNQAXS FOR SURGICAL PROCEDURESBO BASIM Start: 94-14-8762Pjurmwzlse pulse oximetryBO YOOStart: 19-14-8661KKWFIUXQH DEEP BREATHING AND COUGHINGBO YOOStart: 42-18-8774KZDTC YOOStart: 93-70-9795MAFIN RT REFLEX TO CULTUREBO YOOStart: 86-15-9642BGHM AND SCREENBO YOOStart: 10-13-2017 APTTBO YOOStart: 74-24-1907VUKMG METABOLIC PANELBO YOOStart: 10-13-2017 PROTIME-INRBO YOOStart: 30-98-4101EKQZ SCREENING CULTURE ONLYBO YOOStart: 77-98-2009VCN 12-LEADBO YOOStart: 33-86-7268Kaqyvlp examination of patient John Ashby Other Amputation of finger, except thumbJordan Yuan Cervical laminectomyJordan Yuan Excision of lumbar intervertebral discJordan Yuan ft (qualifier value)Jordan Yuan Open reduction of fracture with internal fixationJordan Yuan Removal of lung pneumonectomyJordan Yuan Screening for malignant neoplasm of breastBenwali Ashby Other Screening mammographyBegloria Ashby Other Plan of Treatment DateCare ActivityDetailAuthorStart: 05-13-2025 End: 05-13-2026 reactive protein [Mass/volume] in Serum or PlasmaC-reactive protein Lab Routine Hx of total shoulder replacement, right Expected: 05/13/2025 (Approximate), Expires: 05/13/2026[facility] HealthcareComment on above:Expected: 05/13/2025 (Approximate), Expires: 05/13/2026Start: 05-13-2025 End: 82-76-1161UTI W Auto Differential panel - BloodCBC auto differential Lab Routine Hx of total shoulder replacement, right Expected: 05/13/2025 (Appr oximate), Expires: 05/13/2026[facility] Work Phone: Comment on above:Expected: 05/13/2025 (Approximate), Expires: 05/13/2026Start: 05-13-2025 End: 23-42-2089Adxhherhgep sedimentation rateSedimentation rate, automated Lab Routine Hx of total shoulder replacement, right Expected: 05/13/2025 (Approximate), Expires: 05/13/2026[facility] HealthcareComment on above:Expected: 05/13/2025 (Approximate), Expires: 05/13/2026Start: 05-13-2025 End: 44-22-6788Ffyjfuinclr-6Interleukin-6 Lab Routine Hx of total shoulder replacement, right Expected: 05/13/2025 (Approximate), Expires: 05/13/2026[facility] HealthcareComment on above:Expected: 05/13/2025 (Approximate), Expires: 05/13/2026Start: 05-13-2025 End: 65-13-8766Ycdawwa encounter jqiwgvbnu40/03/2025 10:30 AM EST Office Visit [facility] [address] [place] [phone] Jordan Yuan DO [address] [facility] [place] [address] [facility]opaedicsStart: 03-14-2025 [facility] Work Phone: Start: 25-55-7306QNPAW-19 Vaccine ( season) COVID-19 Vaccine ( season)[facility] HealthcareStart: 47-53-0571Pnzwdcitu vaccinationNOHI HealthcareStart: 58-69-9749Epwnk X-ray of left shoulderXR shoulder LT min 2V*[facility]: 24-20-0341JI Shoulder - left ViewsBrown Memorial Hospitaltart: 10-04-2024 End: 40-44-0097Gblreoy encounter /27/2025 2:45 PM EDT Office Visit [facility] [address] [place] [facility] [place] [address] Brown, Jordan A, DO [address] [place] [address] [facility] NB ORTHOComment on above:ArrivedStart: 09-18-2024 End: 59-88-8895Ekdnukh encounter dhrmndzaw66/11/2025 10:00 AM EDT Office Visit [facility] [address] [place] [address] Jordan Yuan, DO [address] [place] [address] [facility] ORTHOStart: 07-17-2024 End: 84-09-3270Gqufnuj encounter nekbcnioy94/07/2025 2:45 PM EST Office Visit [facility] [address] [place] [address] Jordan Yuan, DO [address] [place] [address] [facility] NB ORTHOComment on above:ArrivedStart: 2024 Screening for malignant neoplasm of colonNOMS HealthcareStart: 06-05-2024 End: 67-63-4368Hihbops encounter bemmavsqb25/26/2024 9:15 AM EST Office Visit [facility] [address] [place] [address] Jordan Yuan, DO [address] [place] [address] [facility] NB ORTHOStart: 05-08-2024 End: 96-41-8625Bbwnldm encounter urbyczarg99/29/2024 10:45 AM EDT Office Visit [facility] [address] [place] [address] Jordan Yuan, DO [address] [place] [address] [facility] NB ORTHOStart: 21-71-0459Fauxwhnts vaccinationInfluenza Vaccine (#1)[facility] HealthcareStart: 10-04-2023 End: 38-08-4625Svihggz encounter jrcejvbrb03/26/2024 3:45 PM EDT Office Visit [facility] [address] [place] [phone] Jordan Yuan, DO [address] [place] [address] [facility] ORTHOStart: 08-18-2023 End: 14-00-1133Utdnkyr encounter ucldkrwck24/08/2024 3:45 PM EST Office Visit [facility] [address] [place] [phone] Jordan Yuan, DO [address] [place] [address] [facility] ORTHOStart: 08-18-2023 End: 08-18-2024 reactive protein [Mass/volume] in Serum or PlasmaC-reactive protein Lab Routine Right shoulder pain, unspecified chronicity Expected: 08/18/2023 (Approximate), Expires: 08/18/2024[facility] HealthcareComment on above: Expected: 08/18/2023 (Approximate), Expires: 08/18/2024Start: 08-18-2023 End: 54-66-1068QEK W Auto Differential panel - BloodCBC auto differential Lab Routine Right shoulder pain, unspecified chronicity Expected: 08/18/2023 ( Approximate), Expires: 08/18/2024[facility] Work Phone: Comment on above:Expected: 08/18/2023 (Approximate), Expires: 08/18/2024Start: 08-18-2023 End: 46-88-0783Xynjtrxduzy sedimentation rateSedimentation rate, automated Lab Routine Right shoulder pain, unspecified chronicity Expected: 08/18/2023 (Approximate), Expires: 08/18/2024[facility] HealthcareComment on above:Expected: 08/18/2023 (Approximate), Expires: 08/18/2024Start: 08-18-2023 End: 51-21-6294Zgqurrkajnj-6Interleukin-6 Lab Routine Right shoulder pain, unspecified chronicity Expected: 08/18/2023 (Approximate), Expires: 08/18/2024 [facility] HealthcareComment on above:Expected: 08/18/2023 (Approximate), Expires: 08/18/2024Start: 43-16-5252Mgusvsndw for malignant neoplasm of breastMammogram [facility] HealthcareStart: 40-83-0431Jmgefywck for malignant neoplasm of cervixNOMS HealthcareStart: 96-35-6712Pezqysycz for malignant neoplasm of cervixPap Smear [facility] HealthcareStart: 59-18-2434Popixudlm for malignant neoplasm of colonNOMS HealthcareComprehensive metabolic 1999 panel - Serum or [facility] HospitalPatient EducationShoulder [facility] Work Phone: [facility] referralR[facility] Work Phone: Renal function 1999 panel - Serum or [facility] HospitalUS Heart TransthoracicTwin City HospitalUS Kidney - bilateralTwin City HospitalXR Chest 2 ViewsUniversity of California, [facility] Immunizations Immunization DateImmunizationNotesCare EftvrgrcJtbegzzz35-69-9792sztjayydy virus vaccine, unspecified formulationJordan Yuan DO Work Phone: [facility] HospitalOrqrkgvhdz47-17-4952sgpthau and diphtheria toxoids, adsorbed, preservative free, for adult use (5 Lf of tetanus toxoid and 2 Lf of diphtheria toxoid)John Ashby Other [facility] Payers DatePayer CategoryPayerPolicy [id number] Health [id number] (Managed Care) [id number] [id number] 29-60-6711Dqwiyxr Health Jqapvvpnu19-66-8457Itls Cross Blue Shield 1.2.840.814721.1.13.693.2.7.9.671239.367923.83789-54-0401Yfnvzlh 1.2.840.325114.1.13.693.2.7.3.453905.53245-05-8788Ofie Clayton Blue Shield [id number] 2.16.840.1.557899.649819 2020Medicare 1.2.840.654483.1.13.693.2.7.3.0342[id number] [id number] 2.16.840.1.096971.3.579.2.[id number] 2.16.840.1.300623.3.579.2.94378-64-2175Jwljadt1047177 2.16.840.1.091312.3.579.2.07291-21-1542Iizitdf9203659 2.16.840.1.076863.3.57[id number] 2.16.840.1.607643.3.579.2.27250-21-6311Dzyfwjf3586416 2.16.840.1.010731.3.579.2.94003-84-7343Slethtb8765359 2.16.840.1.498153.3.579.2.66912-40-1502Vzghnbq5648724 2.16.840.1.255543.3.579.2.91771-64-4547Mtvqkey6529195 2.16.840.1.846272.3.579.2.78648-19-6880Lgdiqzs6191819 2.16.840.1.578928.3.579.2.83823-40-0484Thhjlal5922751 2.16.840.1.284459.3.579.2.81369-62-3604Hpzhijz5703050 2.16.840.1.492343.3.579.2.96623-33-8984Prauiwz3572993 2.16.840.1.968877.3.579.2.58885-26-2840Tpshlgc3252639 2.16.840.1.728067.3.579.2.82920-39-0845Dpbxydt5912292 2.16.840.1.452401.3.579.2.49093-36-3861Iqukvzn6757620 2.16.840.1.273550.3.579.2.67634-62-8891Vmnkmaw1678891 2.16.840.1.646123.3.579.2.40182-01-9454Lrgtmkj2516623 2.16.840.1.706991.3.579.2.94620-65-1194Lxbsufh8476920 2.16.840.1.776189.3.579.2.95609-76-7312Rlbsswe21350994 2.16.840.1.223255.3.579.2.81802-12-2706Dpeysac67692819 2.16.840.1.283511.3.579.2.44702-10-6058Fshzzuo25970397 2.16.840.1.811930.3.579.2.56354-09-2488Wkqkqjh68417634 2.16.840.1.687284.3.579.2.24462-81-6409Uvprezh01132285 2.16.840.1.866978.3.579.2.42515-13-5529Avrzjja55163913 2.16.840.1.479947.3.579.2.83300-35-3592Ocafrar49692881 2.16.840.1.014564.3.579.2.00364-68-8118Ictxeux462154784 2.16.840.1.581904.3.579.2.14562-70-8835Jyhdohw802355445 2.16.840.1.023210.3.579.2.04068-08-2250Teqgdwc916556265 2.16.840.1.853414.3.579.2.13735-60-0466Wjhrriq547686303 2.16.840.1.624842.3.579.2.26134-01-4527Kvosnym96861939 2.16.840.1.214471.3.579.2.864342-95-8695Bnwgdir65871216 2.16.840.1.380443.3.579.2.846359-20-6933Ebnuvyi77836694 2.16.840.1.484038.3.579.2.092416-51-7367Sjlnpro7160304 2.16.840.1.617337.3.579.2.311579-45-7387Jkijbac1205005 2.16.840.1.395825.3.579.2.658545-21-9818Bbxurwr5157085 2.16.840.1.803464.3.579.2.497927-83-0123Sgikcvv4365495 2.16.840.1.863503.3.579.2.1259 [id number] 1960Self-pay [id number]-7131BuzrmjpNYDRA9539103Uyglsdz14479641 .16.840.1.881539.3.579.2.303Qglxzdo58876998 .16.840.1.172366.3.579.2.531 Social History DateTypeDetailFacilityUnknown if ever smokedNomissouri baptist medical center tenXer Other Start: 07-21-2023 End: 05-09-8060Xqz [facility]igned [facility] CenterTobacco smoking statusNo Smoking Status [facility]: 05-24-2023 End: 20-62-2904Niuzzec smoking status NHISEx-smokerNOMS HealthcareStart: 04-10-1981 End: 40-27-8545Tkveuos of tobacco useCurrent smokerNOMS HealthcareStart: 04-10-1981 End: 12-23-4479Hchfewo of tobacco useCigarette SmokerNOMS HealthcareStart: 05-24-2023 End: 01-45-9289Welypba use and exposureSmokeless tobacco non-userNOMS Healthcare Start: 07-21-2023 End: 46-30-5070Wmbcrhg intakeCurrent drinker of alcohol (finding)[facility] Start: 07-21-2023 End: 84-73-0065Oskshdx of Social functionNOMS HealthcareHow often to you have a drink containing alcohol?Monthly or lessNOMS HealthcareHow many standard drinks containing alcohol do you have on a typical day?1 or 2NOMS HealthcareHow often do you have 6 or more drinks on 1 occasion?WeeklyNOMS HealthcareStart: 17-57-3820Myydmqu Commentcaffiene 1-2 cups dailyNOMS HealthcareStart: 1960 Sex Assigned At BirthNot on fileUNIVERSITY OF [facility]OSPITAL HealthcareStart: 02-94-5410Vbj Assigned At [facility] Hospitaltart: 10-09-4372Hnoymmc Number of DrinksNot on fileUNIVERSITY OF UTAH HOSPITAL HealthcareStart: 08-29-2024 End: 58-32-3944OusFgndmp (finding)[facility] Medical Equipment Procedure CodeEquipment CodeEquipment Original TextEquipment IdentifierDates SHOULDER TOTAL ARTHROPLASTY Jordan Yuan DO 04/06/23 Unknown Shoulder RFDA Start: 99-11-4039JZYTTWXI TOTAL ARTHROPLASTY Jordan Yuan DO 04/06/23 Unknown Shoulder RFDAStart: 78-37-1027SRAXNRDG TOTAL ARTHROPLASTY Jordan Yuan DO 04/06/23 Unknown Shoulder RFDAStart: 88-12-6636WYCYTVOY TOTAL ARTHROPLASTY Jordan Yuan DO 04/06/23 Unknown Shoulder RFDAStart: 40-57-9102NRPTBMZI TOTAL ARTHROPLASTY Jordan Yuan DO 04/06/23 Unknown Shoulder RFDAStart: 04-06-2023 SHOULDER TOTAL ARTHROPLASTY Jordan Yuan DO 04/06/23 Unknown Shoulder RFDA Start: 63-46-0618VOFRDPXF TOTAL ARTHROPLASTY Jordan Yuan DO 04/06/23 Unknown Shoulder RFDAStart: 56-10-8892KNBPBRKB TOTAL ARTHROPLASTY Jordan Yuan DO 04/06/23 Unknown Shoulder RFDAStart: 01-56-5541AMBNKKHM TOTAL ARTHROPLASTY Jordan Yuan DO 04/06/23 Unknown Shoulder RFDAStart: 53-79-9961OIGYHLSH TOTAL ARTHROPLASTY Jordan Yuan DO 04/06/23 Unknown Shoulder RFDAStart: 04-06-2023 SHOULDER TOTAL ARTHROPLASTY Jordan Yuan DO 04/06/23 Unknown Shoulder RFDA Start: 35-59-4809XHUYSQAG TOTAL ARTHROPLASTY Jordan Yuan DO 04/06/23 Unknown Shoulder RFDAStart: 20-48-1277ICIWOMBH TOTAL ARTHROPLASTY Jordan Yuan DO 04/06/23 Unknown Shoulder RFDAStart: 39-65-0982FGQRQFRN TOTAL ARTHROPLASTY Jordan Yuan DO 04/06/23 Unknown Shoulder RFDAStart: 57-82-8200ZMOMZUXA TOTAL ARTHROPLASTY Jordan Yuan DO 04/06/23 Unknown Shoulder RFDAStart: 04-06-2023 SHOULDER TOTAL ARTHROPLASTY Jordan Yuan DO 04/06/23 Unknown Shoulder RFDA Start: 78-12-8744SABAAXVS TOTAL ARTHROPLASTY Jordan Yuan DO 04/06/23 Unknown Shoulder RFDAStart: 40-67-8612DUVJBITQ TOTAL ARTHROPLASTY Jordan Yuan DO 04/06/23 Unknown Shoulder RFDAStart: 95-84-6026YHWXENPH TOTAL ARTHROPLASTY Jordan Yuan DO 04/06/23 Unknown Shoulder RFDAStart: 02-11-2144BIQUSMCM TOTAL ARTHROPLASTY Jordan Yuan DO 04/06/23 Unknown Shoulder RFDAStart: 04-06-2023 SHOULDER TOTAL ARTHROPLASTY Jordan Yuan DO 04/06/23 Unknown Shoulder RFDA Start: 74-90-3759MEZAUJGO TOTAL ARTHROPLASTY Jordan Yuan DO 04/06/23 Unknown Shoulder RFDAStart: 49-01-7135QQURLZSJ TOTAL ARTHROPLASTY Jordan Yuan DO 04/06/23 Unknown Shoulder RFDAStart: 58-88-6479SBMFFEOF TOTAL ARTHROPLASTY Jordan Yuan DO 04/06/23 Unknown Shoulder RFDAStart: 27-73-5081MJMSZDTY TOTAL ARTHROPLASTY Jordan Yuan DO 04/06/23 Unknown Shoulder RFDAStart: 04-06-2023 SHOULDER TOTAL ARTHROPLASTY Jordan Yuan DO 04/06/23 Unknown Shoulder RFDA Start: 42-40-3203MMZYFTTM TOTAL ARTHROPLASTY Jordan Yuan DO 04/06/23 Unknown Shoulder RFDAStart: 71-69-0120GPEILMFF TOTAL ARTHROPLASTY Jordan Yuan DO 04/06/23 Unknown Shoulder RFDAStart: 46-29-7857OGRPGSND TOTAL ARTHROPLASTY Jordan Yuan DO 04/06/23 Unknown Shoulder RFDAStart: 23-92-0480PBBEFJSV TOTAL ARTHROPLASTY Jordan Yuan DO 04/06/23 Unknown Shoulder RFDAStart: 04-06-2023 SHOULDER TOTAL ARTHROPLASTY Jordan Yuan DO 04/06/23 Unknown Shoulder RFDA Start: 45-04-8283KGEMSZEL TOTAL ARTHROPLASTY Jordan Yuan DO 04/06/23 Unknown Shoulder RFDAStart: 53-37-0034BFMANUYM TOTAL ARTHROPLASTY Jordan Yuan DO 04/06/23 Unknown Shoulder RFDAStart: 05-85-8570IUYQYCZB TOTAL ARTHROPLASTY Jordan Yuan DO 04/06/23 Unknown Shoulder RFDAStart: 40-25-7343DBGQZBZS TOTAL ARTHROPLASTY Jordan Yuan DO 04/06/23 Unknown Shoulder RFDAStart: 04-06-2023 SHOULDER TOTAL ARTHROPLASTY Jordan Yuan DO 04/06/23 Unknown Shoulder RFDA Start: 93-17-9442MIURDARZ ARTHROSCOPY W/ POSSIBLE REPAIR Jordan Yuan DO 04/27/24 Non Biological Shoulder L{01}[id number]{[id number]{[id number] [facility] Start: 04-27-2024 Functional Status RgeaLkjwlbvgehFmbyuhBnktqdwv28-45-0383Wplucfvamg StatusT[facility]09[facility]14-2023Function[facility] Notes 05-29-2018 to 05-13-2025 Note Date & QrvaVytpSqcctukz36-97-1904 History of Present illness Narrative* Jordan Yuan DO - 05/13/2025 10:30 AM EST Images from the original note were not included. [email or web address] Levy Zaidi is a 64 y.o. female who presents for Pain of the Right Shoulder HPI: History of Present Illness The patient is a 64-year-old right-hand dominant female who presents today for evaluation of her right shoulder. is present. She has a history of a right reverse total shoulder arthroplasty on 04/06/2023. She also suffered an acromial fracture which we managed conservatively. She was doing well with the shoulder until approximately 1.5 months ago, she experienced a dislocation of her right shoulder while holding her grandson. Her son was able to manually reduce the dislocation immediately after the incident. On 04/29/2025, she experienced another dislocation while interacting with her another grandson, necessitating a visit to two hospitals due to the unavailability of an anesthesiologist at the first facility. The second dislocation was more severe, requiring reduction under anesthesia. She reports no further dislocations since the last episode and has been managing her condition with a sling. Prior to the first dislocation, she was able to perform daily activities without significant difficulty, although she did experience some residual soreness. SUBJECTIVE: MEDICATIONS: Current Outpatient Medications Medication Instructions acetaminophen (TYLENOL EXTRA STRENGTH) 500 mg, Oral, Every 4 hours PRN buPROPion XL (Wellbutrin XL) 300 MG 24 hr tablet citalopram (CeleXA) 10 MG tablet HYDROcodone-acetaminophen ([place]) 5-325 MG tablet leflunomide (Arava) 10 MG tablet metoprolol succinate XL (Toprol-XL) 100 MG 24 hr tablet omeprazole (PriLOSEC) [address] capsule pregabalin (Lyrica) 150 MG capsule Rinvoq 15 MG tablet sustained-release 24 hour Daily RT tiZANidine (Zanaflex) 4 MG tablet valACYclovir (VALTREX) 2,000 mg, 2 times daily ALLERGIES: Allergies[1] SURGICAL HISTORY: Surgical History[2] FAMILY HISTORY: Family History[3] SOCIAL HISTORY: Social History[4] Depression: Not on file REVIEW OF SYMPTOMS: Review of Systems The review of systems, history and current medications list are all reviewed today. OBJECTIVE: Visit Vitals Ht 5' 4 Wt 164 lb BMI 28.15 kg/m OB Status Unknown Smoking Status Former BSA 1.83 m Physical Exam Alert and oriented, no acute distress. Mood and affect are appropriate. Ambulating independently. Gait is nonantalgic. Right shoulder: incision benign. No erythema. No ecchymosis. Passive forward flexion to 90 degrees,abduction to 45 degrees, and external rotation to 45 degrees. Soft endpoint with ROM and I did not attempt to move the shoulder further today. No percussive tenderness over acromion. No instability with ER/IR with elbow at side. Ortho Exam Results X-rays of the right shoulder performed at an outside facility 04/29/2025 show an anterior dislocation of the prosthesis. No periprosthetic fractures are appreciated. Postreduction films somewhat poorquality but the prosthesis appears to be reduced. 2 views of the right shoulder, Grashey/axillary taken today and saved to the permanent medical record. Prosthesis is appropriately aligned. No signs of prosthetic loosening or failure. Previous fracture at the base of the acromion may still be present. ASSESSMENT AND PLAN: I reviewed the history, physical exam, diagnostic studies, and diagnosis with the patient. Assessment & Plan 1. Recurrent instability s/p right reverse TSA 04/06/2023 She has been advised to continue using the sling for support, particularly when experiencing soreness or fatigue, and to minimize movements that involve lifting her elbow away from her body. Blood work will be ordered to assess inflammatory markers. A repeat CT scan of the right shoulder will be scheduled to evaluate the current status. If recurrent dislocations occur, surgical intervention may be necessary to revise certain components for enhanced stability. Aspiration of the shoulder may be considered prior to consideration of revision surgery. She should rest the shoulder to allow the softtissues and muscles to heal, using the sling as needed, especially around her grandchildren. Follow-up: After labs and CT scan completion. A total of 20 to 29 minutes was spent on this patient encounter which included chart review, check in, nurse triage, history taking, physical examination, diagnostic study review, patient counseling and discussion, entering information into the patient's medical record, and coordinating patient care Diagnoses and all orders for this visit: Hx of total shoulder replacement, right - XR shoulder 2+ views right - CBC auto differential; Future - Sedimentation rate, automated; Future - C-reactive protein; Future - Interleukin-6; Future Jordan Mckeon.OMehreen Attestation This note was created using voice recognition through [employer] artificial [employer]. [1] Allergies Allergen Reactions Cephalexin GI intolerance [2] Past Surgical History: Procedure Laterality Date CERVICAL [...] ARTHROPLASTY Right 04/06/2023 R REV - NILA [3] Family History Problem Relation Name Age of Onset Diabetes Mother Clarice Alvarado Cancer Mother Clarice Alvarado Diabetes Father Pete Mansfield Cancer Father Pete Mansfield Hypertension Father Pete Mansfield Stroke Father Pete Mansfield Broken bones Sister Aiyana Pierre [4] Social History Tobacco Use Smoking status: Former Current packs/day: 0.00 Average packs/day: 1 pack/day for 10.0 years (10.0 ttl pk-yrs) Types: Cigarettes Start date: 04/10/1981 Quit date: 07/11/1990 Years since quittin.8 Smokeless tobacco: Never Vaping Use Vaping status: Never Used Substance Use Topics Alcohol use: Yes Alcohol/week: 3.0 standard drinks of alcohol Types: 3 Shots of liquor per week Comment: caffiene 1-2 cups daily Drug use: Never documented in this encounterSamaritan HospitalDvztpdcpdj07-86-8104 Chief complaint+Reason for visit Narrative* Chief Complaint Admit Date Itchy w/ no Rash March 06, 2025 9: 17am Referral Order March 14, 2025 9:00pm Reason for Visit Admit Date Chronic kidney disease March 06, 2025 9:17am Heart failure with improved ejection fra ction (HFimpEF) March 06, 2025 9:17am Nonischemic cardiomyopathy March 06, 2025 9:17am Pruritus March 06, 2025 9: 17am [facility] Work Phone: 1(122) 142-466708-27-2025 Chief complaint+Reason for visit Narrative * Chief Complaint Admit Date Itchy w/ no Rash March 06, 2025 9: 17am Referral Order March 14, 2025 9:00pm rt shoulder pain April 29, 2025 3 :25pm Reason for Visit Admit Date Chronic kidney disease March 06, 2025 9:17am Heart failure with improved ejection fra ction (HFimpEF) March 06, 2025 9:17am Nonischemic cardiomyopathy March 06, 2025 9:17am Pruritus March 06, 2025 9: 17am [facility] Work Phone: 1(519) 951-925708-27-2025 Evaluation note* Diagnosis Onset Date Resolution Status Admit Date Chronic kidney disease acuteAugust 2024 9:17amHeart failure with improved ejection fraction (HFimpEF)acuteAugust 2024 9:17amNonischemic cardiomyopathyacuteAugust 2024 9:17amPruritusacuteAugust 2024 9:17am [facility] Work Phone: 1(710) 908-684406-02-2025 [facility] Subjective Radha Zaidi is a 64 [...] mouth if needed., Disp: , Rfl: HYDROcodone-acetaminophen ([place]) 5-325 mg tablet, TAKE 1 TABLET BY [...] [address] feliz (more content not included)...[facility]03-27-2025 History of Present illness Narrative* Jordan Yuan, [...] tablet citalopram (CeleXA) 10 MG tablet HYDROcodone-acetaminophen ([place]) 5-325 MG tablet leflunomide ([place]rava) 10 MG [...] Results Imaging MRI of the left [place] [facility] [place] report and images reviewed. ASSESSMENT AND [...] about this procedure. We will utilize the SvitStylenier shoulder arthroplasty platform and obtain a CT [...] note was created using voice recognition through [employer] [place] artificial [employer]. documented in this encounterSamaritan [id number] History of Present illness Narrative* Jordan Yuan DO - 09/18/2024 10:00 AM EDT Images from the original note were not included. [email or web address] Levy Zaidi is a 64 y.o. female [...] tablet citalopram (CeleXA) 10 MG tablet HYDROcodone-acetaminophen ([place]) 5-325 MG tablet leflunomide (Arava) 10 MG [...] note was created using voice recognition through [employer] artificial intelligence. documented in this encounterSamaritan [id number] Evaluation note* Diagnosis Onset Date Resolution Status Admit Date Chronic kidney disease acuteFebruary 2024 3:15pmEssential hypertensionacuteFebruary 2024 3:15pmHeart failure with improved ejection fraction (HFimpEF)acuteFebruary 2024 3:15pmNonischemic cardiomyopathyacuteFebruary 2024 3:15pmPernicious anemiaacuteFebruary 2024 3:15pmPSVT (paroxysmal supraventricular tachycardia)acuteFebruary 2024 3:15pmScreening mammogram for breast cancer acuteFebruary 2024 3:15pmWellness examinationacuteFebruary 2024 3:15pmEncounter for screening for malignant neoplasm of colonnoneactiveFebruary 2024 3:15pmAnemia of renal diseaseacuteIn[facility] 20[facility] 10:33amChronic kidney disease, stage 3bacuteMar 2024 10:33amHypertensive nephropathy [facility] 20[facility] 10:33amRheumatoid arthritisacuteInspira [facility] 2024 10:33am [facility] Work Phone: 1(476) 951-192502-19-2025 Evaluation note* Diagnosis Onset Date Resolution Status Admit Date Chronic kidney disease acuteFebruary 2024 3:15pmEssential hypertensionacuteFebruary 2024 3:15pmHeart failure with improved ejection fraction (HFimpEF)acuteFebruary 2024 3:15pmNonischemic cardiomyopathyacuteFebruary 2024 3:15pmPernicious anemiaacuteFebruary 2024 3:15pmPSVT (paroxysmal supraventricular tachycardia)acuteFebruary 2024 3:15pmScreening mammogram for breast cancer acuteFebruary 2024 3:15pmWellness examinationacuteFebruary 2024 3:15pmEncounter for screening for malignant neoplasm of colonnoneactiveFebruary 2024 3:15pmAnemia of renal diseaseacuteGreen [facility] 2024 10:33amChronic kidney disease, stage 3bacuteGreen [facility] Hospital 2024 10:33amHypertensive nephropathy acuteGreen [facility] 2024 10:33amRheumatoid arthritisacuteGreen [facility] 2024 10:33am Left rotator cuff tearacuteApril 2024 1:35pmPrimary osteoarthritis, left shoulderacuteApril 2024 1:35pm [facility] Work Phone: 1(875) 768-709701-07-2025 History of Present illness Narrative* Jordan Yuan, - 07/17/2024 2:45 PM EST Images from the original note were not included. [email or web address] Levy Dyna is a 64 y.o. female who presents [...] tablet citalopram (CeleXA) 10 MG tablet HYDROcodone-acetaminophen ([place]) 5-325 MG tablet leflunomide (Arava) 10 MG [...] note was created using voice recognition through [employer]. documented in this encounterSamaritan HospitalFnpgbsoqrl30-77-1820 Evaluation note* Diagnosis Onset Date Resolution Status Admit Date Pernicious anemia acuteDecember 2023 3:25pmChronic kidney diseaseacuteFebruary 2024 3:15pmElevated transaminase levelacuteFebruary 2024 3:15pmEssential hypertensionacuteFebruary 2024 3:15pmHeart failure with improved ejection fraction (HFimpEF)acuteFebruary 2024 3:15pmNonischemic cardiomyopathyacute February 2024 3:15pmPernicious anemiaacuteFebruary 2024 3:15pmPSVT (paroxysmal supraventricular tachycardia)acuteFebruary 2024 3:15pm Screening mammogram for breast canceracuteFebruary 2024 3:15pmWellness examinationacuteFebruary 2024 3:15pm [facility] Work Phone: 1(808) 913-263011-26-2024 History of Present illness Narrative* Jordan Yuan [...] tablet citalopram (CeleXA) 10 MG tablet HYDROcodone-acetaminophen ([place]) 5-325 MG tablet TAKE 1 TABLET BY [...] with debridement Patient will start PT at [place]. [place] protocol for small to medium cuff tears will be utilized. Follow up in 6 weeks. Continue to ice the shoulder and allow sufficient time for rest during the week. There are no diagnoses linked to this encounter. Jordan Yuan D.O. Attestation This note was created using voice recognition through [employer] artificial [employer]. * ROSEMARY Hernandez - 06/05/2024 9:15 AM ESTAssociated Order(s): L Inj/Asp: L glenohumeral Post-Procedure Diagnose(s): Status post shoulder surgery L Inj/Asp: L glenohumeral on 06/05/2024 2:26 PM Indications: pain Details: 25 G needle, ultrasound-guided Medications: 2 mL betamethasone acetate-betamethasone sodium phosphate 6 (3-3) MG/ML Consent was given by the patient. documented in this encounterSamaritan [id number] History of Present illness Narrative* Jordan Yuan DO - 05/08/2024 10:45 AM EDT Images from the original note were not included. [email or web address] Levy Zaidi is a 63 y.o. female [...] tablet citalopram (CeleXA) 10 MG tablet HYDROcodone-acetaminophen ([place]) 5-325 MG tablet TAKE 1 TABLET BY MOUTH 3 TIMES A DAY NEEDED FOR PAIN*MUS LAST 30 DAYS HYDROcodone-acetaminophen ([place]) 5-325 MG tablet 1-2 tablets, Oral, Every [...] for her medication will be sent to [facility] in [place]. Follow-up Return in 4 weeks for follow up. PT will be initiated at that time. Diagnoses and all orders for this visit: Status post shoulder surgery - XR shoulder 2+ views left - HYDROcodone-acetaminophen ([place]) 5-325 MG tablet; Take 1-2 tablets by mouth every 4 (four) hoursif needed (pain) for up to 7 days Jordan Yuan D.O. Attestation This note was created using voice recognition through [employer]. documented in this encounterSamaritan [id number] Evaluation + Plan note Extracted from:Title:ANES Post-operative Note---GeneralAuthor:Wm Bajwa MD Date:04/27/24 Plan Transfer/Discharge: Transfer/Discharge Discharge when meets criteria ( To home ). 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 Family History: Primary malignant neoplasm of prostate Father Acute myocardial infarction Mother Procedure history: Total shoulder replacement (83001778) on 04/06/2023 at 62 Years. Cervical laminectomy (8267776028). Amputation of finger (775252340). Removal of lung, Partial (90877). Open reduction and internal fixation of fracture Leg (520796572). Foot surgery (8455509686). Lumbar discectomy (603566869). Social History Social & Psychosocial Habits Alcohol [...] Signs (last 24 hrs) Last Charted Temp Hfbrlugz64.5 DegC (APR 27:22) Heart Rate Rjenlaiub99 bpm (APR 27:23) AQE116 mmHg (APR 27:23) DBP70 mmHg (APR 27:23) Measurements from flowsheet : Measurements 04/27/2024 6:22 [...] Auto 55.1 % Lymph Auto 20.4 % [place] Auto 19.5 % HI Eos Auto 3.7 % Basophil Auto 1.3 % Neutro Absolute 2.4 E9/L Lymph Absolute 0.9 E9/L LOW [place] Absolute 0.8 E9/L Eos Absolute 0.2 E9/L Basophil Absolute 0.1 E9/L . Plan [place] [employer] Anesthesiologists (ASA) physical status classification: Class III. Anesthetic Preoperative Plan: Anesthesia General. Regional Interscalene block.Addendum by Wm Bajwa MD on April 27, 2024 8:55 [facility] 10-18-2024 Hospital Discharge instructions Patient Education 04/27/2024 10:08:37 Shoulder Cryocuff Patient Instructions - FT (CUSTOM) 04/27/2024 10:08:34 Post Op Patient Instructions - FT (CUSTOM) 04/27/2024 07:48:25 Iris Yuan - After Your Shoulder Arthroscopy (Custom) [place], [place] [facility] AFTER YOUR SHOULDER ARTHROSCOPY [...] appointment. Jordan Yuan, DO [facility] [address] [place] [id number] Reviewed: Follow Up Care 02/23/2024 15:25:37 With:Jordan Yuan Address: [address] [place] [address]- Business (1) When:05/08/2024 10:45:00 Comments:Call for any problems.Keep scheduled appointmentAppointment has already been scheduled [facility] 10-18-2024 NoteProgress Note-Physician Patient: RADHA ZAIDI Age: 63 years Sex: Female : 1960 Associated Diagnoses: None Author: Wm Bajwa MD Postoperative Information Postoperative disposition: Postoperative disposition: To PACU. Optimetrix number: Optimetrix number [id number]. Anesthetic utilized: General. Regional: Interscalene Block. Health [...] Discharge when meets criteria ( To home ).Good Samaritan HospitalComment on above:Result Comment: Electronically Signed By: Wm Bajwa MD\.br\Date and Time Signed: 04/27/24 10:30 EDT 04-27-2024 NotePatient Education - Text [place], [place] [facility] AFTER YOUR SHOULDER ARTHROSCOPY [...] your appointment. 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 Family History: Primary malignant neoplasm of prostate Father Acute myocardial infarction Mother Procedure history: Total shoulder replacement (85489554) on 04/06/2023 at 62 Years. Cervical laminectomy (8775689092). Amputation of finger (020783809). Removal of lung, Partial (41814). Open reduction and internal fixation of fracture Leg (981653582). Foot surgery (3688512195). Lumbar discectomy (489575334). Social History Social & Psychosocial H (more content not included)...Good Samaritan HospitalComment on above:Result Comment: Electronically Signed By: Garett CHAUHAN, Wm Mistry\.br\Date and Time Signed: 04/27/24 08:55 [id number] History of Present illness Narrative* Jordan Yuan, - 11/15/2023 3:45 PM EDT Images from the original note were not included. [email or web address] Levy Zaidi is a 63 y.o. female [...] tablet citalopram (CeleXA) 10 MG tablet HYDROcodone-acetaminophen ([place]) 5-325 MG tablet TAKE 1 TABLET BY [...] Jordan Yuan D.O. 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 She points to the anterior aspect of the shoulder as the locationof her discomfort. SUBJECTIVE: MEDICATIONS: Current Outpatient Medications Medication Instructions aspirin 81 MG EC tablet 1 tablet, Oral, Daily buPROPion XL (Wellbutrin XL) 300 MG 24 hr tablet citalopram (CeleXA) 10 MG tablet HYDROcodone-acetaminophen ([place]) 5-325 MG tablet TAKE 1 TABLET BY [...] care. Jordan Yuan D.O. documented in this encounterSamaritan HospitalIyifcqllic16-03-5097 Evaluation note* Encounter Date Diagnosis Assessment Notes Treatment Notes Treatment Clinical Notes Aug, Wellness examination (ICD-10 - Z 00.00) Healthy diet and exercise. Reviewed age-appropriate preventive testing recommended. Aug,rimary hypertension (ICD-10 - I10)This patient is instructed to consume a healthy, low-fat, low-salt diet. They are also encouraged to continue exercise to achieve/maintain a normal BMI. Patient is instructed on home BP measurements: - rest for 5 minutes w/o talking.- positioned w/ feet on floor and arm supported.- average best 2/3 readings w/ goal < 135/85.- update office w/ homereadings in 2 weeks. 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 Instructed to avoid abrupt d/c of medications. Counseling recommended Aug,SVT (paroxysmal supraventricular tachycardia) (ICD-10 - I47.10) Instructed on healthy diet and exercise. Continue Metoprolol to decrease frequency. Avoid stimulants Aug,Overweight (ICD-10 - E66.3)This patient has been instructed on a low-fat, high-fiber diet. They are instructed to reduce calories, portion sizes and snacks. It is recommended that they exercise for 30 minutes, 3-5 times weekly. Aug,Immunosuppressed status (ICD-10 - D84.9)Due to rheumatoid medication UTD w/ vaccines. Aug,Screening mammogram for breast cancer (ICD-10 - Z12.31)Instructed patient on monthly SBE and yearly mammograms. Aug,Hx of rheumatoid arthritis (ICD-10 - Z87.39)Symptoms tolerable, continue medical treatment f/u Rheumatology [facility] Other 12-19-2023 Evaluation note* Encounter Date Diagnosis Assessment Notes Treatment Notes Treatment Clinical Notes Jun, Acute bronchitis due to other specified organisms (ICD-10 - J20.8) Instructed to use Robitussin or Mucinex for cough, saline or Flonase NS for congestion, Tylenol for pain and fever. Instructed to use Robitussin or Mucinex for cough, saline or Flonase NS for congestion, Tylenol for pain and fever. Jun,Rheumatoid arthritis involving left hand with positive rheumatoid factor (ICD-10 - M05.742)Treatment renders her immunosuppressed, placing her at risk for more serious, prolonged illness. Jun,Immunosuppressed status (ICD-10 - D84.9) [facility] Other 09-28-2023 Evaluation + Plan noteExtracted from:Title: Discharge SummaryAuthor:Jordan Yuan DO ADate:04/07/23 Discharge Information Discharge Summary Information: Admit Date/Time: [...] 1 tab(s), Oral, Daily, 0 Refill(s) Extracted from:Title:ANES Post GeneralAuthor:Yanick Rai DODate:04/06/23 Plan Transfer/Discharge: Patient exhibiting no signs of N/V. Hydration status is adequate. Extracted from:Title:Fredi Basic PREAuthor:Yanick Rai DODate: 04/06/23 Plan [place] [employer] Anesthesiologists (ASA) physical status classification: Class II. Anesthetic Preoperative Plan: Anesthesia General. Regional Interscalene block.[facility]09-28-2023 Hospital Discharge instructions Patient Education 04/07/2023 07:41:33 Iris Yuan - Shoulder Replacement (Custom) [place], [place] [facility] DISCHARGE INSTRUCTIONS: SHOULDER REPLACEMENT [...] persistent vomiting. Jordan Yuan, DO [facility] [address] [place] [address] Reviewed: Follow Up Care 03/09/2023 13:56:15 With:Jordan Yuan Address: [address] [place] [address]- Business (1) When:04/19/2023 14:15:00 With:OJHN SYMONE [facility]: [facility] [place] [address]- Business (1) When: Unknown [facility]09-28-2023 NotePatient: RADHA ZAIDI Age: 62 years [...] 15 mg, 1 tab(s), Oral, Daily, 0 Refill(s)Good Samaritan HospitalComment on above:Result Comment: Electronically Signed By: Jordan Yuan DO\.br\Date and Time Signed: 04/07/23 07:42 [id number] [id number]#[id number]:127 [facility]09-16-20[facility] Evaluation note* Encounter Date Diagnosis Assessment Notes Treatment Notes Treatment Clinical Notes Mar, Major depressive dis order, single episode, 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 They are instructed to reduce calories, portion sizes and snacks. It is recommended that they exercise for 30 minutes, 3-5 times weekly. Jan,rimary hypertension (ICD-10 - I10)This patient is instructed to consume a healthy, low-fat, low-salt diet. They are also encouraged to continue exercise to achieve/maintain a normal BMI. Jan,ecreased libido (ICD-10 - R68.82)Last OV increased Wellbutrin and decreased SSRI w/o benefit D/c SSRI and monitor for change in mood She is aware that nervousness and lightheadedness are common w/d symptoms [facility] Other 06-02-2023 Evaluation note* Encounter Date Diagnosis Assessment Notes Treatment Notes Treatment Clinical Notes Dec, Overweight (ICD-10 - E66.3) [facility] Other 06-01-2023 Evaluation note* Encounter Date Diagnosis Assessment Notes Treatment Notes Treatment Clinical Notes Dec, Overweight (ICD-10 - E66.3) This patient has been instructed on a low-fat, high-fiber diet. They are instructed to reduce calories, portion sizes and snacks. It is recommended that they exercise for 30 minutes, 3-5 times weekly. Fill second Rx for Adipex Dec,rimary hypertension (ICD-10 - I10)This patient is instructed to consume a healthy, low-fat, low-salt diet. They are also encouraged to continue exercise to achieve/maintain a normal BMI. Dec,ecreased libido (ICD-10 - R68.82)Age and medication contributing. New treatments available, will research treatment choices and let her know but likely will be very costly. Suggested referral to [employer] [facility] Other 05-02-2023 Evaluation note* Encounter Date Diagnosis Assessment Notes Treatment Notes Treatment Clinical Notes November, Overweight (ICD-10 - E66.3) This patient has been instructed on a low-fat, high-fiber diet. They are instructed to reduce calories, portion sizes and snacks. It is recommended that they exercise for 30 minutes, 3-5 times weekly. November,Essential hypertension (ICD-10 - I10)This patient is instructed to consume a healthy, low-fat, low-salt diet. They are also encouraged to continue exercise to achieve/maintain a normal BMI. Monitor BP while taking Adipex [facility] Other 03-30-2023 NoteCONSULTATION PROCEDURE DATE: 10/07/2022 PROCEDURE: [...] least 80% reduction of pain symptoms.[facility] HospitalLxlsodzf83-97-3903 NoteCONSULTATION CONSULTATION DATE: 10/07/2022 ADDENDUM: On examination of the right shoulder, the patient did have a positive right sided full can test, a positive Neida's test, Apley's test and cross body test. All four positive on examination date 10/07/2022.[facility] HospitalDinqpeuc00-07-2675 NoteCONSULTATION CONSULTATION DATE: 10/07/2022 TO: John Ashby [...] activity modification, use of Zanaflex, Lyrica and [place]. RECOMMENDATIONS: I recommend proceeding with a right [...] shoulder without contrast and physical therapy.[facility] HospitalTtribzpz60-97-6370 Evaluation note* Encounter Date Diagnosis Assessment Notes Treatment Notes Treatment Clinical Notes Aug, Anemia (ICD-10 - D64.9) [facility] Other 01-16-2023 Evaluation note* Encounter Date Diagnosis Assessment Notes Treatment Notes Treatment Clinical Notes Jul, Rheumatoid arthritis involving left hand with positive rheumatoid factor (ICD-10 - M05.742) RA appears to be in remision, f/u Rheumatology Jul,aroxysmal tachycardia, unspecified (ICD-10 - I47.9)No s/s tachycardia. Avoid stimulants and maintain normal hydration. Jul,Overweight (ICD-10 - E66.3)This patient has been instructed on a low-fat, high-fiber diet. They are instructed to reduce calories, portion sizes and snacks. It is recommended that they exercise for 30 minutes, 3-5 times weekly. Fill Adipex w/ expectation that she will achieve IBW. Jul,AD (generalized anxiety disorder) (ICD-10 - F41.1)Healthy diet, exercise w/o change in treatment [facility] Other 12-30-2022 NoteCONSULTATION PROCEDURE DATE: 07/09/2022 PREOPERATIVE [...] be followed up in the office.[facility] HospitalFdgfkgrs63-84-3206 NoteCONSULTATION CONSULTATION DATE: 07/09/2022 HISTORY OF PRESENT [...] possible increase in dose. She also takes [place] 5/325 t.i.d. and Zanaflex 4 mg three [...] months' time, unless otherwise indicated. [facility] HospitalNwvxkufg83-93-3022 NoteCONSULTATION CONSULTATION DATE: 05/20/2022 HISTORY OF PRESENT [...] medications include Celexa, Lyrica 50 mg b.i.d., [place] 5/325 t.i.d. and Zanaflex. Patient is having [...] level of C3-4. We will refill her [place] at 5/325 t.i.d. Supportive home measures were discussed such as heat and a menthol heat rub, as well as vitamin compliance. The patient agrees to move forward with the plan, will be followed up in the clinic thereafter.[facility] HospitalDnqvctpa99-17-7688 NoteCONSULTATION PROCEDURE DATE: 02/17/2022 PRE AND POSTOPERATIVE [...] be followed up in the clinic.[facility] HospitalWlhjslmm84-77-3657 NotePROCEDURE: XR SHOULDER RT 2V or > COMPARISON: None. HISTORY: Pain of right shoulder joint FINDINGS: BONES:No acute fracture or dislocation. Minimal degenerative changes. Cervical fusion hardware SOFT TISSUES:Negative. No visible soft tissue swelling. EFFUSION:None visible. OTHER: Negative. IMPRESSION: No acute abnormality Electronically authenticated by: VANDANA COLLINS Date: 2022-02-16 19:11[facility] HospitalKuoztncb87-98-7741 NoteCONSULTATION CONSULTATION DATE: 02/02/2022 CHIEF COMPLAINT: Right [...] aggravates the pain. The patient currently takes [place] 5/325 t.i.d., wellbutrin 150 mg, Lyrica 50 [...] point tenderness along the right bicipital tendon. Plaster Applicator strength is maintained. IMPRESSION: Current working diagnosis [...] to proceed. CC: John Ashby D.O.[facility] HospitalUsbsddoy09-73-3874 NoteCONSULTATION CONSULTATION DATE: 10/22/2021 HISTORY OF PRESENT [...] her pain are pushing, pulling, standing walking, shell mold bonder hours and activity. Cold weather and bending bother her as well. Medications include Lyrica 75 mg t.i.d., which she has not been taking for the past two months; Celexa, [place] 5/325 t.i.d., Zanaflex and RINVOQ. She feels that her pain is managed well with her [place], but is concerned about the neuropathic pain [...] in need of a refill for her [place] today, which we will give 5/325 t.i.d. [...] in three months' time unless otherwise indicated. [facility] Signed and Approved by: JACQUIE OLIVAS . 11/12/2021 16:27:00[facility]11-19-2018 Evaluation note* Diagnosis Onset Date Resolution Status PSVT (paroxysmal supraventricular tachyc ardia) acuteHeart failure with improved ejection fraction (HFimpEF)acuteNonischemic cardiomyopathyacuteOrthostatic hypotensionMay 29, 2018acuteAnemiaacute Essential hypertensionacuteGAD (generalized anxiety disorder)acuteHeart failure with improved ejection fraction (HFimpEF)acuteNonischemic cardiomyopathyacute Preop exam for internal medicineacutePSVT (paroxysmal supraventricular tachycardia)[facility] Work Phone: 1(207) 302-524311-19-2018 Evaluation note* Diagnosis Onset Date Resolution Status Heart failure with improved ejection fra ction (HFimpEF) acuteNonischemic cardiomyopathyacuteOrthostatic hypotensionMay 29, 2018 acuteAnemiaacuteEssential hypertensionacuteGAD (generalized anxiety disorder) acuteHeart failure with improved ejection fraction (HFimpEF)acuteNonischemic cardiomyopathyacutePreop exam for internal medicineacutePSVT (paroxysmal supraventricular tachycardia)acuteRheumatoid arthritisWright-Patterson Medical Center Work Phone: Evaluation + Plan note Future Appointments Appointment Date:04/06/2023 09:30:00 AM Scheduled Provider: Location[facility] Future Appointments Appointment Date:04/06/2024 12:00:00 PM Scheduled Provider: Location:[facility] Appointment Type:Surgery FT [facility] Evaluation noteNo InformationNoRiddle Hospital [employer] Other Evaluation note* Diagnosis Right shoulder pain, unspecified chronicity- Primary documented in this encounter [facility] HealthcareEvaluation note* Diagnosis Onset Date Resolution Status Hypertension acuteOverweightacutePSVT (paroxysmal supraventricular tachycardia)[facility] Work Phone: Evaluation note* Diagnosis Onset Date Resolution Status Hypertension acuteOverweightacutePSVT (paroxysmal supraventricular tachycardia)acuteHeart failure with improved ejection fraction (HFimpEF)acuteNonischemic cardiomyopathy [facility] Work Phone: Evaluation note* Diagnosis Status post shoulder surgery- Primary Other postprocedural status documented in this encounter [facility] HealthcareEvaluation note* Diagnosis Onset Date Resolution Status Heart failure with improved ejection fra ction (HFimpEF) acuteNonischemic cardiomyopathyacuteEssential hypertensionacuteGAD (generalized anxiety disorder)acuteHeart failure with improved ejection fraction (HFimpEF) acuteNonischemic cardiomyopathyacutePreop exam for internal medicineacutePSVT (paroxysmal supraventricular tachycardia)acuteRheumatoid arthritisacuteEssential hypertensionacuteHigh risk medication useacuteNonischemic cardiomyopathyacute Pernicious anemiaacutePSVT (paroxysmal supraventricular tachycardia)[facility] Work Phone: Evaluation note* Diagnosis Status post shoulder surgery- Primary Other postprocedural status documented in this encounter [facility] HealthcareEvaluation note* Diagnosis Status post shoulder surgery- Primary Other postprocedural status documented in this encounter [facility] HealthcareEvaluation note* Diagnosis S/P arthroscopy of left shoulder- Primary documented in this encounter [facility] HealthcareEvaluation note* Diagnosis S/P arthroscopy of left shoulder- Primary documented in this encounter [facility] HealthcareEvaluation note* Diagnosis Complete tear of left rotator cuff, unspecified whether traumatic- Primary documented in this encounter [facility] HealthcareEvaluation noteNo assessment information availableR[facility]ide [facility] Work Phone: Evaluation note* Diagnosis Hx of total shoulder replacement, right- Primary documented in this encounter [facility] HealthcareHistory general Narrative - Reported* Type Description Date Medical History Right shoulder strain, initial e ncounter Medical HistoryRheumatoid arthritis involving left hand with positive rheumatoid factorMedical HistoryOverweightMedical HistoryParoxysmal tachycardia, unspecifiedMedical HistoryEssential hypertensionMedical HistoryAnemiaMedical HistoryScreening mammogram, encounter forMedical HistoryAbdominal cramping in left lower quadrantMedical HistoryDehydrationMedical HistoryDiarrhea of infectious originMedical HistoryDyspepsiaMedical HistoryObesity (BMI 30-39.9) Medical HistoryEncounter for wellness examinationMedical HistorySuspected COVID- 19 virus infectionMedical HistoryContusion of left lower extremity, initial encounterMedical HistoryFatigueMedical HistoryRecurrent cold soresMedical HistoryTherapeutic drug monitoringMedical HistoryMycobacterium avium complex Medical HistoryGAD (generalized anxiety disorder)Medical HistoryMild episode of recurrent major depressive disorderMedical HistoryWell woman examMedical History History of empyema of pleuraMedical HistoryCervical spondylosisMedical History History of pericarditisMedical HistoryRotator cuff tear, rightSurgical History Left Small Finger x 2Surgical HistoryLeft Thumb fusedSurgical HistoryRight Index FingerSurgical HistoryRight Shoulder [id number]/2014Surgical HistoryRight Foot x 2Surgical HistoryLumbar Spine x 2Surgical HistoryCervical Spine x 2 Surgical HistoryHysterectomySurgical Historyrevision of external fixation device in L fibula, open approachSurgical Historytonsillectomy and adenoidectomy Surgical HistoryORIF, proximal fibulaSurgical [id number] History Lumbar [id number]/1992Surgical HistoryACDF C4-611/20Hospitalization HistorySee Above [facility] Other History general Narrative - Reported* Type Description Date Medical History Right shoulder strain, initial e ncounter Medical HistoryRheumatoid arthritis involving left hand with positive rheumatoid factorMedical HistoryOverweightMedical HistoryParoxysmal tachycardia, unspecifiedMedical HistoryEssential hypertensionMedical HistoryAnemiaMedical HistoryScreening mammogram, encounter forMedical HistoryAbdominal cramping in left lower quadrantMedical HistoryDehydrationMedical HistoryDiarrhea of infectious originMedical HistoryDyspepsiaMedical HistoryObesity (BMI 30-39.9) Medical HistoryEncounter for wellness examinationMedical HistorySuspected COVID- 19 virus infectionMedical HistoryContusion of left lower extremity, initial encounterMedical HistoryFatigueMedical HistoryRecurrent cold soresMedical HistoryTherapeutic drug monitoringMedical HistoryMycobacterium avium complex Medical HistoryGAD (generalized anxiety disorder)Medical HistoryMild episode of recurrent major depressive disorderMedical HistoryWell woman examMedical History History of empyema of pleuraMedical HistoryCervical spondylosisMedical History History of pericarditisMedical HistoryRotator cuff tear, rightSurgical History Left Small Finger x 2Surgical HistoryLeft Thumb fusedSurgical HistoryRight Index FingerSurgical HistoryRight Shoulder [id number]/2014Surgical HistoryRight Foot x 2Surgical HistoryLumbar Spine x 2Surgical HistoryCervical Spine x 2 Surgical HistoryHysterectomySurgical Historyrevision of external fixation device in L fibula, open approachSurgical Historytonsillectomy and adenoidectomy Surgical HistoryORIF, proximal fibulaSurgical [id number] History Lumbar [id number]/1992Surgical HistoryACDF C4-611/20Surgical HistoryRight reverse total shoulder arthroplasty03/2023Hospitalization HistorySee Above [facility] Other Hospital course Narrative No data available for this section [facility] No data available for this section [facility] Dis[facility] instructionsAmbulatory Orders* Referral to Allergy/Immunology Location: None Selected [facility] Work Phone: Hospital Discharge instructionsAdditional Instructions If your symptoms return/worsen or you develop any further concerns or symptoms please see your doctor or return to the emergency department immediately. It is imperative that you go over today's visit and all results with your primary care provider. As we discussed please be sure to follow-up with your orthopedic surgeon let them know that this happened, continue to wear the sling until cleared by orthopedic surgeon to take it off.[facility] Work Phone: Progress note No data available for this section [facility]Reason for referral (narrative)No reason for referral information availableRiverside Methodist Hospital Work Phone: Summary Purpose Family History No Family History Records Found Relationship Condition Age at Onset Recorded Date/T roshni brother Malignant neoplasm Unknown fatherDiabetes mellitusUnknownMalignant neoplasmUnknownNot SpecifiedMalignant neoplasmUnknownDiabetes mellitusUnknownnatural sonHeart diseaseUnknownsister Heart diseaseUnknown Relationship Condition Age at Onset Recorded Date/T roshni brother Malignant neoplasm Unknown fatherDiabetes mellitusUnknownMalignant neoplasmUnknownmotherMalignant neoplasm UnknownDiabetes mellitusUnknownsonHeart diseaseUnknownsisterHeart diseaseUnknown Advance Directives No Advanced Directives Records Found Advance Directive Response Recorded Date/ Time Advance Directives No April 24, 2018 1:59pm Advance Directive Response Recorded Date/ Time Advance Directives No April 24, 2018 12:59pm Chief Complaint and Reason for Visit Chief Complaint Amb Documentation Amb Documentation Amb Documentation Check UpReason for VisitHypertension Overweight PSVT (paroxysmal supraventricular tachycardia) Chief Complaint 3 Month Check up Reason for Visit Hypertension Overweight PSVT (paroxysmal supraventricular tachycardia) Chief Complaint 3 Month Check up low bp dizzy lightheadReason for VisitHypertension Overweight PSVT (paroxysmal supraventricular tachycardia) Heart failure with improved ejection fraction (HFimpEF) Nonischemic cardiomyopathy Chief Complaint 3 Month Check up low bp dizzy lighthead discuss testing results/surgery clearanceReason for VisitPSVT (paroxysmal supraventricular tachycardia) Heart failure with improved ejection fraction (HFimpEF) Nonischemic cardiomyopathy Orthostatic hypotension Anemia Essential hypertension ERICH (generalized anxiety disorder) Heart failure with improved ejection fraction (HFimpEF) Nonischemic cardiomyopathy Preop exam for internal medicine PSVT (paroxysmal supraventricular tachycardia) Chief Complaint low bp dizzy lighthe ad discuss testing results/surgery clearance B12 ShotReason for VisitHeart failure with improved ejection fraction (HFimpEF) Nonischemic cardiomyopathy Orthostatic hypotension Anemia Essential hypertension ERICH (generalized anxiety disorder) Heart failure with improved ejection fraction (HFimpEF) Nonischemic cardiomyopathy Preop exam for internal medicine PSVT (paroxysmal supraventricular tachycardia) Rheumatoid arthritis Chief Complaint low bp dizzy lighthe ad discuss testing results/surgery clearance B12 Shot B12 shotReason for VisitHeart failure with improved ejection fraction (HFimpEF) Nonischemic cardiomyopathy Orthostatic hypotension Anemia Essential hypertension ERICH (generalized anxiety disorder) Heart failure with improved ejection fraction (HFimpEF) Nonischemic cardiomyopathy Preop exam for internal medicine PSVT (paroxysmal supraventricular tachycardia) Rheumatoid arthritis Chief Complaint low bp dizzy lighthe ad discuss testing results/surgery clearance B12 Shot B12 shot 4 month f/uReason for VisitHeart failure with improved ejection fraction (HFimpEF) Nonischemic cardiomyopathy Essential hypertension [...] Shot B12 shot 4 month f/u B12 shotReason for VisitHeart failure with improved ejection fraction (HFimpEF) Nonischemic cardiomyopathy Essential hypertension [...] 2024 3:15pm Screening mammogram for breast cancer [facility] 2024 3:15pm Wellness examination August 29, 2024 [...] 2024 3:15pm Screening mammogram for breast cancer [facility] 2024 3:15pm Wellness examination August 29, 2024 [...] section and content) DATE CREATED AUTHOR 12/29/2017 [facility] ([place], [place]) DATE CREATED AUTHOR AUTHOR'S ORGANIZ ATION 05/13/2020 [facility] DATE CREATED AUTHOR AUTHOR'S ORGANIZ ATION 10/15/2022 [facility] DATE CREATED AUTHOR AUTHOR'S ORGANIZ ATION 03/20/2024 [facility] DATE CREATED AUTHOR AUTHOR'S ORGANIZ ATION 04/29/2024 [facility] DATE CREATED AUTHOR AUTHOR'S ORGANIZ ATION 11/21/2024 [facility] DATE CREATED AUTHOR AUTHOR'S ORGANIZ ATION 12/11/2024 [facility] DATE CREATED AUTHOR AUTHOR'S ORGANIZ ATION 03/09/2025 [facility] DATE CREATED AUTHOR AUTHOR'S ORGANIZ ATION 05/07/2025 [facility] DATE CREATED AUTHOR AUTHOR'S ORGANIZ ATION 05/18/2025 [facility] EPIC REASON FOR VISIT (unrecogniz ed section and content) ReasonCommentsFollow-upR rev TSA 04/06/23ReasonCommentsFollow-upR shoulder pain, Rev TSA 04/06/23 poss coracoid an/or accromial fx maReasonCommentsPost-opReason NazravuwWgev-evSinxheIlkaeevjAcmjgl-sfEfoaccIpvvnzilDlplfz-upMRI [facility] 09/28/24 ReasonCommentsPain Patient Care team informatio n (unrecognized section and content) Team Status: Active Member Role Status Dates John Ashby DO Primary Care Provider Active Team Status: Inactive Member Role Status Dates John Ashby DO Primary Care Provider Active Start: June 14, 2024 End: June 14, 2024Todd Figueredo ProviderActiveStart: June 14, 2024 End: June 14, 2024 Team Status: Active Member Role Status Dates John Ashby DO Primary Care Provider Active Start: June 21, 2024 Todd Velasquez ProviderActiveStart: June 21, 2024 Team Status: Inactive Member Role Status Dates John Ashby DO Primary Care Provide r, Attending Provider Active Start: August 29, 2024 End: August 29, 2024 Team Status: Active Member Role Status Dates John Ashby DO Primary Care Provider Active Start: February 02, 2024 Todd Velasquez ProviderActiveStart: February 02, 2024 Team Status: Active Member [...] Start: December 28, 2023 End: December 28, 2023Team MemberRelationshipSpecialtyStart DateEnd Date John Ashby MD [address] [place] [address] [facility] - [facility]nal [facility]12/23/22Team MemberRelationshipSpecialtyStart Date End Date John Ashby MD [address] [place] [address] PCP - GeneralInternal Medicine12/23/22 Team Status: Active Member Role Status Dates John Ashby DO Primary Care Provide r, Attending Provider Active Start: August 30, 2023 Team Status: Active Member Role Status Dates John Ashby DO Primary Care Provider Active Start: September 02, 2023 Mikhail Quiroga ProviderActiveStart: September 02, 2023 Team Status: Active Member Role Status Dates John Ashby DO Primary Care Provider Active Start: September 05, 2023 Mikhail Quiroga ProviderActiveStart: September 05, 2023 Team Status: Inactive Member Role Status Dates John Ashby DO Primary Care Provide r, Attending Provider Active Start: September 28, 2023 End: September 28, 2023 Team Status: Inactive Member Role Status Dates John Ashby DO Primary Care Provide r, Attending Provider Active Start: April 10, 2024 End: April 10, 2024Team MemberRelationshipSpecialtyStart DateEnd Date John Ashby MD [address] [facility] [phone] PCP - GeneralInternal Medicine12/23/22 Team Status: Inactive Member Role Status Dates John Ashby DO Primary Care Provide r, Attending Provider Active Start: April 17, 2024 End: April 17, 2024 Team Status: Inactive Member Role Status Dates John Ashby DO Primary Care Provide r, Attending Provider Active Start: May 09, 2024 End: May 09, 2024Team MemberRelationshipSpecialtyStart DateEnd Date John Ashby MD [address] [phone] [facility]nal [facility]12/23/22Team MemberRelationshipSpecialtyStart Date End Date John Ashby MD [address] [place] [facility] [phone] PCP - [facility]12/23/22Team MemberRelationshipSpecialtyStart Date End Date John Ashby MD [address] [place] [phone] PCP - GeneralInternal Medicine12/23/22Team MemberRelationshipSpecialtyStart Date End Date John Ashby MD [address] [place] [phone] PCP - GeneralInternal Medicine12/23/22 Team Status: Active Member Role Status Dates John Ball , DO Primary Care Provide r, Attending Provider Active Start: August 31, 2024 Team Status: Inactive Member Role Status Dates John Ashby DO Primary Care Provider Active Start: September 25, 2024 End: September 25neelima Gordon MDAttending ProviderActiveStart: September 25, 2024 End: September 25, 2024Yanick Florez MDReferring ProviderActiveStart: September 25, 2024 End: September 25, 2024Team MemberRelationshipSpecialtyStart DateEnd Date John Ashby MD [address] [place] [phone] PCP - GeneralInternal Medicine12/23/22 Team Status: Active Member Role Status Dates John Ashby DO Primary Care Provider Active Start: November 06, 2024 Ethan Padilla DOAttending ProviderActiveStart: November 06, 2024 Team Status: Inactive Member Role Status Arsenio Ashby DO Primary Care Provider Active Start: November 06, 2024 End: November 06, 2024Ethan Padilla DOAttending ProviderActiveStart: November 06, 2024 End: November 06, 2024 Team Status: Inactive Member Role Status Dates John Ashby DO Primary Care Provider Active Start: March 06, 2025 End: March 06isa Ashby DOAttending ProviderActiveStart: March 06, 2025 End: March 06, 2025 Team Status: Active Member Role Status Arsenio Ahsby DO Primary Care Provider Active Start: March 08, 2025 John Ashby DOAttending ProviderActiveStart: March 08, 2025 Team Status: Active Member Role Status Dates John Ashby DO Primary Care Provider Active Start: March 14, 2025 John Ashby DOAttending ProviderActiveStart: March 14, 2025 Team Status: Active Member Role/Relationship Status Arsenio Ashby DO Primary Care Provider Active Team Status: Inactive Member Role/Relationship Status Arsenio Ashby DO Primary Care Provider Active Start: March 06, 2025 End: March 06isa Ashby DOAttending ProviderActiveStart: March 06, 2025 End: March 06, 2025 Team Status: Active Member Role/Relationship Status Dates John Ashby DO Primary Care Provider Active Start: March 08, 2025 Quirino Medina ProviderActiveStart: March 08, 2025 Team Status: Active Member Role/Relationship Status Dates John Ashby DO Primary Care Provider Active Start: March 14, 2025 Quirino Medina ProviderActiveStart: March 14, 2025 Team Status: Inactive Member Role/Relationship Status Dates John Ashby DO Primary Care Provider Active Start: April 29, 2025 End: April 29loisjessica Arias DOLeonie ProviderActiveStart: April 29, 2025 End: April 29, 2025Team MemberRelationshipSpecialtyStart DateEnd Date John Ashby DO PCP - GeneralInternal Medicine12/23/22Team MemberRelationshipSpecialtyStart Date End Date John Ashby [address] [place] [phone] PCP - GeneralInternal Pvwbdmvm48/3/25 Goals (unrecognized section and content) Goals may [...] BE BASED ON THE PRIMARY CLINICAL RECORDS. [facility] Training Advisor [facility]. provides no warranty or guarantee of the accuracy or completeness of information in this document.
--- NOTE | 2025-05-30 15:15 | PM.CN ---
Consult Note: HPI Data of Consult Patient: known to practice within the last 3 years Consult date: 05/30/25 Requesting Physician: Veronique Yu NP Primary Care Provider: John Mcdaniels DO Consult Narrative Reason for consult: bilateral shoulder pain Narrative: Radha garland pleasant 64 year old female presents for evaluation of chronic pain. longstanding hx of chronic neck pain, shoulder pain, low back and bilateral hip pain. Hx of C3-7 fusion, previously found benefit to RFAs and ESIs. has failed to benefit from > 6 weeks of PT and provider guided HEP, heat, ice, tylenol, and NSAIDs. currently utilizing pregabalin 150mg TID, tizanidine 4mg TID PRN pain/spasms, and hydrocodone-acetaminophen BID-TID PRN moderate to severe pain. Pain today 5/10 in bilateral shoulders, increasing to 10/10 with standing, walking, ROM, lifting, activity. denies falls or injury. following with orthopedic surgery for evaluation of left shoulder, now they are recommending a total left shoulder replacement however she does not wish to undergo surgery. She did recently dislocate her right shoulder, hx of right shoulder replacement, continues to f/u with Dr Barron. Unfortunately she could not afford previously ordered suprascpular axillary RFA. she would like to discuss a repeat left shoulder injection as that was beneficial. cc:: CC: Veronique Yu NP Review of Systems ROS Status of ROS 10 or more systems reviewed and unremarkable except as noted in history and below Musculoskeletal Reports: back pain, neck pain and joint pain PFSH PFS Medical History Neck pain ?M54.2 - Cervicalgia (ICD-10) Low back pain ?M54.50 - Low back pain, unspecified (ICD-10) Osteoarthritis ?M19.90 - Unspecified osteoarthritis, unspecified site (ICD-10) Rheumatoid arthritis ?M06.9 - Rheumatoid arthritis, unspecified (ICD-10) TMJ (dislocation of temporomandibular joint) ?S03.00XA - Dislocation of jaw, unspecified side, initial encounter (ICD-10) Heartburn ?R12 - Heartburn (ICD-10) Pleural effusion ?J90 - Pleural effusion, not elsewhere classified (ICD-10) Irregular heart beat ?I49.9 - Cardiac arrhythmia, unspecified (ICD-10) Surgical History H/O exploratory thoracotomy ?Z98.890 - Other specified postprocedural states (ICD-10) H/O cervical spine surgery ?Z98.890 - Other specified postprocedural states (ICD-10) H/O shoulder surgery ?Z98.890 - Other specified postprocedural states (ICD-10) H/O foot surgery ?Z98.890 - Other specified postprocedural states (ICD-10) H/O: hysterectomy ?Z90.710 - Acquired absence of both cervix and uterus (ICD-10) H/O hand surgery ?Z98.890 - Other specified postprocedural states (ICD-10) H/O lumbosacral spine surgery ?Z98.890 - Other specified postprocedural states (ICD-10) Social History Little interest or pleasure in doing things: not at all Feeling down, depressed, or hopeless: not at all Meds Home Medications and Allergies Home Medications ?Medication ?Instructions ?Recorded ?Confirmed ?Type bupropion HCl 150 mg tablet,12 hr 150 mg PO DAILY 12/15/22 04/29/25 History sustained-release (Wellbutrin SR) citalopram 20 mg tablet (Celexa) 20 mg PO DAILY 12/15/22 04/29/25 History leflunomide 10 mg tablet (Arava) 10 mg PO DAILY 12/15/22 04/29/25 History metoprolol succinate 25 mg 25 mg PO DAILY 12/15/22 04/29/25 History tablet,extended release 24 hr (Toprol XL) tizanidine 4 mg tablet (Zanaflex) See Rx Instructions .Route 11/24/23 04/29/25 Rx .COMPLEX PRN muscle spasticity #360 tabs pregabalin 150 mg capsule (Lyrica) 150 mg PO TID #270 caps 06/26/24 04/29/25 Rx hydrocodone 5 mg-acetaminophen 325 1 tab PO TID PRN pain #90 tabs 02/13/25 04/29/25 Rx mg tablet calcium carbonate (Calcium 600) 600 mg PO DAILY 04/29/25 04/29/25 History hydrocodone 5 mg-acetaminophen 325 1 tab PO Q6H PRN pain #10 tabs 04/29/25 Rx mg tablet ondansetron 4 mg disintegrating 4 mg PO Q6H PRN nausea and 04/29/25 Rx tablet vomiting #20 tabs hydrocodone 5 mg-acetaminophen 325 1 tab PO TID PRN pain #90 tabs 05/20/25 Rx mg tablet Allergies Allergy/AdvReac Type Severity Reaction Status Date / Time No Known Drug Allergies Allergy Verified 11/19/24 08:50 Exam Constitutional Documenting provider has reviewed patient's vital signs: yes Common normals: no apparent distress, oriented x3 and alert General appearance: cooperative HENMT Common normals: normocephalic, hearing grossly normal bilaterally and moist oral mucous membranes Head and scalp: normocephalic Eye Common normals: PERRL Pupil: PERRL Neck & C-Spine Common normals: full ROM General: normal visual inspection Cervical spine: no cervical spine tenderness Other: negative spurlings Chest Common normals: inspection of chest normal Respiratory Common normals: normal respiratory effort, no retractions and no use of accessory muscles Back & Pelvis Lumbar spine/lower back: pain with ROM and lumbar spinal tenderness Sacroiliac joints: SI joints normal Other: bilateral sij negative parth(patricks), gaenslens, thigh thrust, compression test Extremity Left upper extremity: shoulder joint Other: moderate pain with posterior liftoff and apleys scratch test on the left, left side positive empty can strength 5/5 in BUE sensation intact BUE Neuro Common normals: oriented x3 Sensorium/orientation: alert Motor exam: strength 5/5 throughout and no movement abnormalities noted Psych Common normals: mental status grossly normal, thought process normal, cooperative, affect normal, speech normal and activity/motor behavior normal Speech: normal speech Thought process: normal thought process Results Additional Findings Additional findings: If on a controlled substance or opioids, I have checked an [place]AR[place] report on this patient and there are no aberrancies noted in the prescribing history.??If on a controlled substance or opioid a drug screen was completed and reviewed within the last year, and if there has not been a drug screen completed we ordered one today to monitor higher risk, state monitored pain medication use. As part of providing excellent, safe, comprehensive care, the following was completed at our patient's visit: 1. A medication reconciliation and review to ensure accurate knowledge of current/active medications, including asking our patients to inform us about any dvyu-lii-yuhcnva medications or herbal remedies/nutritional supplements/alternative remedies. 2. A review to specifically ensure our patients have had annual screening for screening for depression, screening for tobacco use, and screening for unhealthy alcohol use. For concerning screenings had a discussion with the patient, provided patient education, and recommended follow-up with primary care provider when appropriate. If patient noted with a risk of falling, they received education on strength, gait, and balance training to prevent future risk of falling. Portions of this note may have been carried over from the previous visit and updated as appropriate. Please note this office utilizes paper charting in addition to the electronic medical record. A list of current medications, vitals, and PMH is available there as the clinical staff outside of myself do not have access to [facility] charting during the clinic day operations. As part of providing quality comprehensive care the current medications, vitals, and PMH were reviewed in the paper chart. Assessment and Plan Assessment and Plan (1) Osteoarthritis of left shoulder: Qualifiers: Osteoarthritis type: primary Qualified Code(s): M19.012 - Primary osteoarthritis, left shoulder (2) Chronic pain of both shoulders: (3) Myofascial pain: (4) Chronic prescription opiate use: Assessment and Plan: I feel these medications are improving the patient's quality of life and allow them to tolerate activities of daily living as well as participate in recreational activity.? The patient does not report intolerable side effects. The patient is NOT opioid naive and non-pharmacologic and non-opioid treatment has failed to significantly relieve the patient's pain and improve functionality. The patient has a diagnosis that is related to a somatic or visceral pain etiology. ? ?? I reviewed with the patient the potential risks and side effects with the use of? opioid medications including but not limited to respiratory depression,? sedation, and even . Within the last 12 months I have verified the patient has access to naloxone should? these effects occur. The patient was advised to let? their family know they had Naloxone in case they would need to administer? the medication. I advised the patient to avoid the use of any other? sedation substances including alcohol, THC, and benzodiazepines while? taking opioid medications due to the risk of compounding side effects and? detrimental outcomes. within the last 12 months I have reviewed the ART HISTORIAN, pain treatment agreement and urine drug screen.? ?? A drug screen was completed within the last year, and no aberrancies were noted regarding their use of controlled substances. The patient understands they are subject to the terms and conditions of the pain contract that they have signed. ? ?? I have checked an OAR[place] report on this patient today and there are no aberrancies noted in the prescribing history.? Plan repeat left shoulder injection, previous injection provided at least 50% improvement for 3 months continue f/u with orthopedics as planned continue tizanidine 4mg TID PRN pain/spasms continue lyrica 150mg TID continue hydrocodone-acetaminophen 5-325mg TID PRN moderate to severe pain 90 tabs to last 30 days
== END 2025-05-30 14:44 | disposition home or self-care (01) ==
LOC: PM 14:44
PROVIDERS: PCP Internal Medicine; Visit Provider Nurse Practitioner
DX: M19.012 Primary osteoarthritis, left shoulder (principal); M25.511 Pain in right shoulder; M25.512 Pain in left shoulder; M79.18 Myalgia, other site; Z79.891 Long term (current) use of opiate analgesic
CPT/HCPCS: G0463

== ENCOUNTER 2025-06-10 11:18 | Outpatient (OUT) | payer MEDICARE, SELFPAY ==
--- OUTSIDE RECORDS SUMMARY | 2025-06-10 11:27 | XMS_ITS | Clinical Summary ---
Author Organization [facility] Healthcare Address [address] [place] [place] [address] Care Team Providers Care Utility Hand Name Role Phone ArslanJohn Diandra CAMPOS Primary Care Provider [phone] Allergies Active AllergyReactionsCriticalityNoted DateCommentsCephalexinGI intolerance 06/30/2018 Medications MedicationSigDispense QuantityRefillsLast FilledStart DateEnd DateStatus leflunomide (Arava) 10 MG tablet Active metoprolol succinate XL (Toprol-XL) 100 MG 24 hr tablet Active omeprazole (PriLOSEC) [address] capsule Active tiZANidine (Zanaflex) 4 MG tablet Active Rinvoq 15 MG tablet sustained-release 24 hour in the morning.Active buPROPion XL (Wellbutrin XL) 300 MG 24 hr tablet 03/26/2023ctive pregabalin (Lyrica) 150 MG capsule 03/31/2023ctive valACYclovir (Valtrex) 1 g tablet Take 2,000 mg by mouth in the morning and 2,000 mg before bedtime.03/31/2023 Active HYDROcodone-acetaminophen ([place]) 5-325 MG tablet 06/30/2023ctive citalopram (CeleXA) 10 MG tablet 08/17/2023ctive acetaminophen (Tylenol Extra Strength) 500 MG tablet Indications:Status post shoulder surgeryTake 1 tablet (500 mg) by mouth every 4 (four) hours if needed for mild pain 40 tablet 05/22/2024ctive Active Problems No known active problems Encounters DateTypeDepartmentCare BblxZhdnnamtmrj36/17/2025linisync Result Encounter [facility] External Department Unsolicited Jordan Barron DO 05/13/2025 11:25 AM ESTAncillary Procedure [facility] [address] [place] [address] 05/13/2025 10:30 AM ESTOffice Visit [facility] [address] [facility] [place] [address] Jordan Barron, DO Hx of total shoulder replacement, right (Primary Dx)05/13/2025 8:05 AM EST Ancillary Procedure [facility] [address] [place] [address] 05/13/2025Travelfrom Last 3 Months Family History Medical HistoryRelationNameCommentsCancerFatherCharles BolesDiabetesFather Pete BolesHypertensionFatherCharles BolesStrokeFatherCharles BolesCancer MotherDee ButlerDiabetesMotherDee ButlerBroken bonesSisterKim EdmondsRelation NameStatusCommentsFatherCharles BolesAliveMotherDee ButlerAliveSisterKim Ignacio Social History Tobacco UseTypesPacks/DayYears UsedDateSmoking Tobacco: TvmgadKauqhtdjph616 04/10/1981 - 07/11/1990Smokeless Tobacco: Never Tobacco Cessation:Counseling Given: Not Answered Alcohol UseStandard Drinks/WeekCommentsYes3 (1 standard drink = 0.6 oz pure alcohol)caffiene 1-2 cups dailyAUDIT-CAnswerDate RecordedQ1: How often do you have a drink containing alcohol?Monthly or less09/10/2023verage Number of DrinksNot on file09/10/2023Frequency of Binge DrinkingNot on file09/10/2023 CommentsUnknownSex and Gender InformationValueDate RecordedSex Assigned at BirthNot on fileLegal LfiNxcnae42/15/2023 7:32 PM EDTGender IdentityNot on fileSexual OrientationNot on file Last Filed Vital Signs Vital SignReadingTime TakenCommentsBlood Pressure--Pulse--Abboklpvlyg67.4 ??C (97.5 ??F)06/05/2024 2:20 PM ESTRespiratory Rate--Oxygen Saturation--Inhaled Oxygen Concentration--Loknvf08.4 kg (164 lb)05/13/2025 10:55 AM SFNGieffu598.6 cm (5' 4 )05/13/2025 10:55 AM ESTBody Mass Index28.15107/13/2024 10:55 AM EST Plan of Treatment DateTypeDepartmentCare Team (Latest Contact Info)Cygpelybsmo52/02/2025 2:30 PM ESTOffice Visit [facility] [address] [place] [address] Jordan Barron, DO [address] [place] [address] Health MaintenanceDue DateLast DoneCommentsCT Gapigsmemask1960Colonoscopy 1960FIT1960FOBT1960 9678Bclpdohseznvp1960Pap Smear1981 Cervical Cancer Lenglgvxx45/29/1990HPV/Clbjld1506/08/19906106Qwkiaiitx60/29/2000 Pneumococcal Vaccine: 65+ Years (1 of 1 - PCV)2010Colorectal Cancer Ldqhdrpck93/29/2024FIT-DNA4108/08/2020OVID-19 Vaccine ( - season)504/, 10/10/2020Influenza Vaccine (#1)2025 05/10/2019, 04/19/2018 Procedures Procedure NamePriorityDate/TimeAssociated DiagnosisCommentsCT UPPER EXTREMITY W/O CONTRAST RIGHT05/27/2025 3:26 PM EST XR SHOULDER 2+ VIEWS HXVWNCyfrjzr46/03/2025 11:21 AM EST Hx of total shoulder replacement, right from Last 3 Months Results * CT UPPER EXTREMITY W/O CONTRAST RIGHT (05/27/2025 3:26 PM EST)Anatomical RegionLateralityModalityOtherSpecimen (Source)Anatomical Location / Laterality Collection Method / VolumeCollection TimeReceived Time05/27/2025 3:26 PM EST Narrative 05/27/2025 5:12 PM EST Exam Date/Time: 05/27/2025 15:38 EST Reason for Exam: M25.511 Report IMPRESSION: ??REVERSE RIGHT GLENOHUMERAL SHOULDER PROSTHESIS. ON THE CURRENT STUDY, THE METALLIC BALL COMPONENT OF THE PROSTHESIS NOW ABUTS THE UNDERSURFACE OF THE DOWNWARD SLOPING ACROMION. FRACTURE OF THE BASE OF THE RIGHT ACROMIAL PROCESS, PREVIOUSLY NOTED. CLINICAL HISTORY: ??M25.511 COMPARISON: ??09/06/2023. COMMENT: Unenhanced images were obtained. There is a metallic reverse right glenohumeral shoulder prosthesis, unchanged in position and alignment when compared to the prior CT scan. However, the superior aspect of the metallic ball component of the prosthesis now abuts the undersurface of the downward sloping acromion. No dislocation is noted. Again noted is the slightly displaced fracture at the base of the right acromial process, unchanged in position. The lucent fracture line persists and there is some bony sclerosis on either side of the fracture line and apparent faint periosteal reaction. No acute fracture of bony structures at the right shoulder is noted. Of incidental note, there is metallic surgical hardware associated with the lower cervical spine and T1. All CT scans at this facility use dose modulation, iterative reconstruction, and/or weight based dosing when ??appropriate to reduce radiation dose to as low as reasonably achievable. Technical Comments: Ordering Provider: Jordan Barron FINAL REPORT Dictated: ??05/27/2025 5:09 pm ? Jayson Kemp M.D. Signed (Electronic Signature): ??05/27/2025 5:09 pm Signed by: ??Jayson Kemp M.D. Transcribed by: ??DP ? Technologist: ??ORCHARD HAND Procedure Note Radiology, Radiologist, - 05/27/2025 Exam Date/Time: 05/27/2025 15:38 EST Reason for Exam: M25.511 Report IMPRESSION: REVERSE RIGHT GLENOHUMERAL SHOULDER PROSTHESIS. ON THECURRENT STUDY, THE METALLIC BALL COMPONENT OF THE PROSTHESIS NOW ABUTS THE UNDERSURFACEOF THE DOWNWARD SLOPING ACROMION. FRACTURE OF THE BASE OF THE RIGHT ACROMIAL PROCESS, PREVIOUSLY NOTED. CLINICAL HISTORY: M25.511 COMPARISON: 09/06/2023. COMMENT: Unenhanced images were obtained. There is a metallic reverse right glenohumeral shoulder prosthesis,unchanged in position and alignment when compared to the prior CT scan. However, thesuperior aspect of the metallic ball component of the prosthesis now abuts the undersurface of the downward sloping acromion. No dislocation is noted. Again noted is the slightly displaced fracture at the base of the rightacromial process, unchanged in position. The lucent fracture line persists andthere is some bony sclerosis on either side of the fracture line and apparent faintperiosteal reaction. No acute fracture of bony structures at the right shoulder is noted. Of incidental note, there is metallic surgical hardware associated with the lowercervical spine and T1. All CT scans at this facility use dose modulation, iterativereconstruction, and/or weight based dosing when appropriate to reduce radiation dose to as lowas reasonably achievable. Technical Comments: Ordering Provider: Jordan Barron FINAL REPORT Dictated: 05/27/2025 5:09 pm Jayson Kemp M.D. Signed (Electronic Signature): 05/27/2025 5:09 pm Signed by: Jayson Kemp M.D. Transcribed by: DANISHA Technologist: SAMMY Authorizing ProviderResult TypeResult StatusJordan Barron DOCLINISYNC IMAGING Final Result * XR shoulder 2+ views right (05/13/2025 11:21 AM EST)Anatomical Region LateralityModalityUpper Extremities, ShoulderRightRadiographic ImagingSpecimen (Source)Anatomical Location / LateralityCollection Method / VolumeCollection TimeReceived Time Narrative 05/13/2025 8:55 PM EST Imaging Result: X-rays of the right shoulder performed at an outside facility 04/29/2025 show an anterior dislocation of the prosthesis. ??No periprosthetic fractures are appreciated. ??Postreduction films somewhat poor quality but the prosthesis appears to be reduced. 2 views of the right shoulder, Grashey/axillary taken today and saved to the permanent medical record. ??Prosthesis is appropriately aligned. ??No signs of prosthetic loosening or failure. ??Previous fracture at the base of the acromion may still be present. Authorizing ProviderResult TypeResult StatusJordan Barron DOIMG XR PROCEDURES Final Result from Last 3 Months Insurance Care Teams Team MemberRelationshipSpecialtyStart DateEnd Date John Mcdaniels DO [address] [facility] [place] [id number] PCP - GeneralInternal Ujvowtyl44/3/25
--- OUTSIDE RECORDS SUMMARY | 2025-06-10 11:27 | XMS_ITS | Clinical Summary ---
Author Organization [facility] Address [address] [place] [address] Care Team Providers Care Feature Writer Name Role Phone John Mcdaniels DO Primary Care Provider Allergies Active AllergyReactionsCriticalityNoted DateCommentsCephalexinGI intolerance 06/30/2018 Medications [...] 100 mg by mouth if needed.04/06/2023ctive HYDROcodone-acetaminophen ([place]) 5-325 mg tablet TAKE 1 TABLET BY MOUTH 3 TIMES A DAY NEEDED FOR PAIN*MUS LAST 30 DAYS 06/30/2023ctive leflunomide (Arava) 10 mg tablet 10 mg.06/07/2017Active methylPREDNISolone (Medrol Dospak) 4 mg tablets 10/22/2023ctive omeprazole (PriLOSEC) [address] capsule 40 mg.09/27/2023ctive pregabalin (Lyrica) 150 mg capsule 10/25/2023ctive tiZANidine (Zanaflex) 4 mg tablet tizanidine 4 mg oqussr1604/30/2017Active Rinvoq 15 mg tablet extended release 24 [...] 90 tablet ctive Active Problems ProblemNoted DateDiagnosed FlidVtmwpuw73/02/2025High blood ynasmjgi60/02/2025 Rheumatoid rejxohipm76/02/2025Status post partial removal of lung12/10/2024 Pzyfmlmtvbc65/02/2025hronic systolic congestive heart czjlpjs2311/04/2023 Nonischemic aodkunnnvbaqol62/26/2024Mixed izhgrctlpvqgwr00/26/2024losed fracture of upper end of kekquw5304/25/2020Loculated euivrpz2705/16/2018Cervical stenosis of spinal canal10/21/2017Foraminal stenosis of cervical region 10/13/2017Degenerative joint disease of hand12/15/2012cute pericarditis 11/05/2011Essential ojgidsjdnegg27/27/2012Rheumatoid /12/2012 Family History Medical HistoryRelationNameCommentsCoronary artery diseaseMotherRelationName StatusCommentsFatherAliveMotherDeceased [...] Last Filed Vital Signs Vital SignReadingTime TakenCommentsBlood Uzqopefw437/7106 4:23 PM EDT Apwgf0960 4:23 PM QXJXgqsyqqqprf48.3 ??C (97.3 ??F)06/25/2019 9:18 AM ESTRespiratory Bcgm882511/04/2023 3:25 PM EDTOxygen Kfejjvnzev19%12/10/2024 4:23 PM EDTInhaled Oxygen Concentration--Lpdlel45.5 kg (129 lb)12/10/2024 4:23 PM EDT Kaufpk937.1 cm (5' 5 )12/10/2024 4:23 PM EDTBody Mass Index21.47012/10/2024 4:23 PM EDT Plan of Treatment Health MaintenanceDue DateLast DoneCommentsCT Pomtzhtqthvh1960Colonoscopy 1960FIT1960FOBT1960Medicare Annual Wellness (AWV)1960 Medicare Initial Physical (IPPE)1960 3992Mkrtxxyupmmuh1960Depression Sitgpfiiy43/29/1972Pneumococcal Vaccine: 50+ Years (1 of 2 - PCV)1979Pap Smear1981Cervical Cancer Dcpmrzbvk04/29/1990HPV/Gfitax8606/08/1990Mammogram 2000Zoster Vaccines (1 of 2)2010Colorectal Cancer Screening 2024FIT-DNAOVID-19 Vaccine (3 - season) /, 10/10/2020Influenza Vaccine (#1), 04/19/2018Fall Risk Hxiohndpd87/29/2025dult Rtsrsed39HIB VaccinesAged OutNo longer eligible based on patient's age to complete this topic HPV VaccinesAged OutNo longer eligible based on patient's age to complete this topicIPV VaccinesAged OutNo longer eligible based on patient's age to complete this topicMeningococcal B VaccineAged OutNo longer eligible based on patient's age to complete this topicMeningococcal VaccineAged OutNo longer eligible based on patient's age to complete this topicRotavirus VaccinesAged OutNo longer eligible based on patient's age to complete [place] [address] Care Teams Team MemberRelationshipSpecialtyStart DateEnd Date John Mcdaniels DO [address] [facility] [address] [facility]11/08/23
--- OUTSIDE RECORDS SUMMARY | 2025-06-10 11:27 | XMS_ITS | Encounter Summary ---
Author Organization [facility] Address [address] [place] [address] Care Team Providers Care Retail Bakery Manager Name Role Phone John Mcdaniels Primary Care Provider [phone] Encounter Details DateTypeDepartmentCare Team (Latest Contact Info)Wivqyqfpsno48/17/2025linisync Result Encounter [facility] Unsolicited Jordan Barron, [address] [place] [place] [address] Social History Tobacco UseTypesPacks/DayYears UsedDateSmoking Tobacco: ZboyjxHestjdhyfu466 04/10/1981 - 07/11/1990Smokeless Tobacco: NeverAlcohol UseStandard Drinks/Week CommentsYes3 (1 standard drink = 0.6 oz pure alcohol)caffiene 1-2 cups daily AUDIT-CAnswerDate RecordedQ1: How often do you have a drink containing alcohol? Monthly or less09/10/2023verage Number of DrinksNot on file09/10/2023Frequency of Binge DrinkingNot on file09/10/2023CommentsUnknownSex and Gender InformationValueDate RecordedSex Assigned at BirthNot on fileLegal SexFemale 09/22/2022 7:32 PM EDTGender IdentityNot on fileSexual OrientationNot on file documented as of this encounter Plan of Treatment DateTypeDepartmentCare Team (Latest Contact Info)Qagjbmbvhsy52/02/2025 2:30 PM ESTOffice Visit [facility] [address] [facility] [address] [place] [address] Jordan Barron, DO [address] [place] [address] documented as of this encounter Procedures Procedure NamePriorityDate/TimeAssociated DiagnosisCommentsCT UPPER EXTREMITY W/O CONTRAST RIGHT05/27/2025 3:26 PM EST documented in this encounter Results [...] Signed by: ??Jayson Kemp M.D. Transcribed by: ??DANISHA ? Technologist: ??SAMMY Procedure Note Radiology, Radiologist, - 05/27/2025 Exam [...] TypeResult StatusJordan Barron DOCL[facility] Final Result documented in this encounter Visit Diagnoses Not on filedocumented in this encounter Care Teams Team MemberRelationshipSpecialtyStart DateEnd Date John Mcdaniels DO [address] [place] [id number] PCP - GeneralInternal Qeinkiqv50/3/25documented as of this encounter
--- OUTSIDE RECORDS SUMMARY | 2025-06-10 11:27 | XMS_ITS | Clinical Summary ---
Author Organization [facility] Address [id number] [address] [place] [address] Care Team Providers Care Casket Inspector Name Role Phone John Mcdaniels DO Primary Care Provider [phone] Allergies No known active allergies Medications MedicationSigDispense QuantityRefillsLast FilledStart DateEnd DateStatus dilTIAZem CD (CARDIZEM CD) 360 MG 24 hr capsule Take 360 mg by mouth daily.Active citalopram (CeleXA) 20 mg tablet Take 20 mg by mouth daily.Active leflunomide (ARAVA) 10 mg tablet Take 10 mg by mouth daily.Active pregabalin (LYRICA) 50 mg capsule Take 50 mg by mouth 3 (three) times a day.Active piperacillin-tazobactam (ZOSYN) 3.375 gram injection Infuse 3.375 g into a venous catheter 3 (three) times a day. ORDER STATES THROUGH May05/16/2018Active tiZANidine (ZANAFLEX) 4 mg tablet Take 4 mg by mouth 3 (three) times a day.Active metoprolol succinate XL (TOPROL XL) 25 mg 24 hr tablet Take 25 mg by mouth daily.Active traZODone (DESYREL) 100 mg tablet Take 100 mg by mouth nightly.Active buPROPion SR (WELLBUTRIN SR) 100 mg 12 hr tablet Take 300 mg by mouth daily.Active HYDROcodone-acetaminophen (XODOL) 5-300 mg per tablet Take 1 tablet by mouth every 8 (eight) hours as needed for pain.Active ibuprofen (ADVIL,MOTRIN) 800 mg tablet Take 800 mg by mouth 3 (three) times a day.Active sodium chloride (NORMAL SALINE FLUSH) injection Infuse 10 mL into a venous catheter daily.Active heparin sodium,porcine (HEPARIN, PORCINE,) 10,000 unit/mL injection Infuse 10,000 Units/mL into a venous catheter daily.Active ALTEPLASE CATH Infuse 2 mg into a venous catheter once. SKILLED NURSE TO INSTILL ALTEPLASE 2 MG PER 2 ML IV TO AFFECTED CVAD LUMEN(S) PER AGENCY POLICY. PATIENT NEEDS BOTH LUMENS TREATED.05/26/2018Active Social History Tobacco UseTypesPacks/DayYears UsedDateSmoking Tobacco: Never AssessedChildcare AnswerDate OuvvrrrzLrquyahzmOpdfmbg11/12/2019EmploymentAnswerDate Recorded UitserrtqmUobaemt41/12/2019Purpose - LifeAnswerDate RecordedPurpose and direction in qiwpLceoqsp44/11/2021CommentsUnknownSex and Gender InformationValueDate RecordedSex Assigned at BirthNot on fileLegal SexFemale 02/13/2015 12:08 PM EDTGender IdentityNot on fileSexual OrientationNot on file Last Filed Vital Signs Vital SignReadingTime TakenCommentsBlood Drrvhzgi324/6006/08/2018 6:56 PM EST Kgljt5906/29/2018 6:56 PM AQUCrphlsvdzxu26.9 ??C (98.4 ??F)2018 6:56 PM ESTRespiratory Qdkr862608/08/2017 6:56 PM ESTOxygen Mjhalnttil75%06/07/2018 10:03 AM ESTInhaled Oxygen Concentration--Weight--Height--Body Mass Index-- Plan of Treatment Not on file Medical Devices Not on file Insurance Care Teams Team MemberRelationshipSpecialtyStart DateEnd Date John Mcdaniels DO [address] [place] [address] PCP - GeneralInternal Klojgfhw82/6/18
--- OUTSIDE RECORDS SUMMARY | 2025-06-10 11:27 | XMS_ITS | Clinical Summary ---
Author Organization [facility] Address [address] [facility], [address] [place] [address] Care Team Providers Care [address] Emergency Services Dispatcher Name Role Phone John Mcdaniels DO Primary Care Provider [phone] Allergies No known active allergies Medications MedicationSigDispense QuantityRefillsLast FilledStart DateEnd DateStatus buPROPion (WELLBUTRIN XL) 300 MG extended release tablet TAKE 1 TABLET BY MOUTH UJDKZ72208/16/2016Active citalopram (CELEXA) 20 MG tablet in AM5108/21/2016Active diltiazem (TIAZAC) 360 MG extended release capsule TAKE 1 CAPSULE EVERY CJW57308/03/2016Active leflunomide (ARAVA) 10 MG tablet 10 mg daily06/07/2017Active metoprolol succinate (TOPROL XL) 25 MG extended release tablet TAKE 1 TABLET BY MOUTH EVERY DAY AT NUZPT20907/16/2016Active tiZANidine (ZANAFLEX) 4 MG tablet TAKE 1 TABLET BY MOUTH EVERY 8 HOURS NEEDED FOR XMNQ074Active InFLIXimab (REMICADE IV) Infuse intravenously Every 4 weeksActive acetaminophen (TYLENOL) 325 MG tablet Take 2 tablets by mouth every 4 hours as needed for Pain 120 tablet 10/21/2017Active pregabalin (LYRICA) 50 MG capsule Indications:Cervical radiculopathy,Foraminal stenosis of cervical region, Cervical spondylosis without myelopathy,Cervical disc herniationTake 1 capsule by mouth 3 times daily for 30 days.. 90 capsule 02/15/2018Active digoxin (LANOXIN) 125 MCG tablet Take 125 mcg by mouth dailyActive rifampin (RIFADIN) 300 MG capsule Take by mouth 2 times dailyActive ethambutol (MYAMBUTOL) 100 MG tablet Take 100 mg by mouth dailyActive azithromycin (ZITHROMAX) 500 MG tablet Take 500 mg by mouth dailyActive HYDROcodone-acetaminophen (NORCO) 5-325 MG per tablet Take 1 tablet by mouth every 6 hours as needed for Pain.Active pregabalin (LYRICA) 75 MG capsule Indications:Cervical radiculopathy,Cervical spondylosis without myelopathyTake 1 capsule by mouth 3 times daily for 30 days. 270 capsule 1Active Active Problems ProblemNoted DateDiagnosed DateCervical stenosis of spinal canal10/21/2017 Foraminal stenosis of cervical ifcqzm3010/13/2017 Family History Medical HistoryRelationNameCommentsCancerFatherDiabetesFatherHigh Blood Pressure FatherArthritisMotherosteoCancerMotherDiabetesMotherThyroid DiseaseMotherOther Sister 1AfibCancerSister 2OtherSister 2AfibOtherSon 1AfibOtherSon 2afibRelation NameStatusCommentsBrotherAliveFatherAliveMotherAliveSister 1AliveSister 2Alive Son 1Son 2 Social History Tobacco UseTypesPacks/DayYears UsedDateSmoking Tobacco: FormerCigarettesQuit: 1991Smokeless Tobacco: NeverAlcohol UseStandard Drinks/WeekCommentsYes0 (1 standard drink = 0.6 oz pure alcohol)weekends 1 beer or glass wine CommentsNoSex and Gender InformationValueDate RecordedSex Assigned at BirthNot on fileLegal OppWjkofk56/10/2013 5:12 PM ESTGender IdentityNot on fileSexual OrientationNot on file Last Filed Vital Signs Vital SignReadingTime TakenCommentsBlood Mkikjrdc369/7204 7:35 AM EDT Jlhns139710/21/2017 7:35 AM SKOImfqvwldcan45.1 ??C (98.7 ??F)03/07/2020 11:01 AM EDTRespiratory Gquq992510/21/2017 7:35 AM EDTOxygen Dbvcfrznxf86%10/21/2017 7:35 AM EDTInhaled Oxygen Concentration--Rxcsmm73.6 kg (180 lb)03/07/2020 11:01 AM SAQEvxjoa355.4 cm (5' 5.5 )03/07/2020 11:01 AM EDTBody Mass Index29.5003/07/2020 11:01 AM EDT Plan of Treatment Not on file Medical Devices ImplantedTypeAreaManufacturerDevice IdentifierShelf Expiration DateModel / Serial / LotOptio - C Allograft Implanted:Qty: 1 on 10/20/2017 by Prosper Gomes MD at [facility] Bone/Graft/Tissue/Human/SynthLeft: Neck02/07/[id number] / / [id number] - C Plate Implanted:Qty: 1 on 10/20/2017 by Prosper Gomes MD at [facility] Screw/Plate/Nail/RodLeft: Neck09/08/[id number] / / [id number] Spacer Spine Fortitude Duo [id number] Implanted:Qty: 1 on 10/20/2017 by Prosper Gomes MD at [facility] SpineRight: NeckZIMMER SPINE-PMM04/[id number] / / [id number] [place] Plus Ti 12mm Implanted:Qty: 2 on 10/20/2017 by Prosper Gomes MD at [facility] SpineRight: NeckJNJ: DEPUY ORTHOPAEDICS-PMM12 MM [id number] / / 16 Mm Plate Implanted:Qty: 1 on 10/20/2017 by Prosper Gomes MD at [facility] Right: [id number] / / 10 Mm Screw Implanted:Qty: 2 on 10/20/2017 by Prosper Gomes MD at [facility] Right: [id number] / / Spacer Clip Implanted:Qty: 1 on 10/20/2017 by Prosper Gomes MD at [facility] Right: [id number] / / 12 Mm Variable Screw Implanted:Qty: 2 on 10/20/2017 by Prosper Gomes MD at [facility] Left: [id number] / / 14 Mm Variable Screw Implanted:Qty: 1 on 10/20/2017 by Prosper Gomes MD at [facility] Left: [id number] / / [place] [address] Advance Directives * Full Code (Latest Code Status on File) Date ActivatedDate InactivatedComments10/20/2017 1:09 PM10/21/2017 11:39 PM Care Teams Team MemberRelationshipSpecialtyStart DateEnd Date John Mcdaniels DO PCP - GeneralInternal Medicine10/11/17
--- OUTSIDE RECORDS SUMMARY | 2025-06-10 11:56 | XMS_ITS | CCD ---
Author Organization [facility] Care Team Providers Care Supervisor [employer] Name Role Phone BASIM, BARRY H. Unavailable Unavailable BASIM, BARRY H. Unavailable Unavailable BALL, JOHN E Unavailable Unavailable BASIM, BARRY H. Unavailable Unavailable BALL, JOHN E Unavailable Unavailable EBRAHEIM, MARYURI Attending Unavailable EBRAHEIM, MARYURI Admitting Unavailable SYMONE, JOHN Referring Unavailable SYMONE, JOHN Primary Care Unavailable EBRAHEIM, MARYURI Surgeon Unavailable [place] Procedure Practitioner Unavailab le [place] Procedure Practitioner Unavailab PRAKASH Chery Surgeon Unavailable [...] ., NAREVARISTOATH Attending Amy vailable BALL, DR OLPEZ Primary Care Unavailable LAKSHMIPATHY ., NARRORO Admitting [...] Amy vailable JOHN ASHBY Primary Care Physician [phone] Cesia Artis Unavailable Unavailable John Ashby MD [...] Care Provider Ethan Padilla DO Attending Provider Brown, Jordan A Referring Unavailable Brown, Jordan [...] Attending Unavailable Sesar Arias DO Emergency Provider [phone] Sesar Arias Admitting Unavailable Sesar Arias Attending [...] ClassificationReported Allergen(s)Allergy TypeDate of OnsetReaction(s) Facility (1 source)84689,00; Translations: [Unknown]Propensity to adverse reactions (disorder)96-85-5838Pgx [facility] Repository (20 sources)Cephalexin; Translations: [CEPHALEXIN]Drug Hgecqtp46-71-2004MMChristianaCare Work Phone: (7 sources)patient allergy list reviewed by nurse or physiciaPropensity to adverse [id number]:Cojoin Other (1 source)CephalexinDrug Tydbosz94-63-5130KyzvilrysUniversity [facility]als [facility] Medications Current Medications MedicationDrug Class(es)DatesSig (Normalized)Sig (Original)acetaminophen 500 mg oral tablet (12 sources)Start: 82-51-4477vkev 1 tablet by mouth every four hours for pain acetaminophen (Tylenol Extra Strength) 500 MG tablet Indications: Status post shoulder surgery Take1 tablet (500 mg) by mouth every 4 (four) hours if needed for mild pain 40 tablet 05/22/2024 Activeacetaminophen 325 mg / HYDROcodone bitartrate 5 mg oral tablet (20 sources)Opioid AgonistStart: 02-36-6274hifz 1 tablet by mouth three times daily as needed for painHydrocodone-Acetaminophen 5-325 mg tablet Active 1 TAB PO Three times daily as needed for pain 0 September 25, 2024 12:00am Complies with drug therapyStart: 05-57-6897jfzu 1 tablet by mouth every twelve hours as neededHydrocodone-Acetaminophen 5-325 mg tablet Active 1 TAB PO Every 12 hours as needed September 252:00am Complies with drug therapyStart: 05-08-2024 End: 78-50-8843xrnl 1-2 tablets by mouth every four hoursHYDROcodone- acetaminophen ([place]) 5-325 MG tablet Indications: Status post shoulder surgery Take 1-2 tablets by mouth every 4 (four) hours if needed (pain) for up to 7 days 40 tablet 05/08/2024 05/15/2024 ActiveStart: 72-99-6243gwko 1 tablet by mouth every six hoursacetaminophen-hydrocodone 325 mg-5 mg oral tablet 1 tab(s), Oral, q6hr, Refill(s) 0, Pain Start Date: 03/19/24 Status: OrderedStart: 06-30-2023 HYDROcodone-acetaminophen ([place]) 5-325 MG tablet 06/30/2023 ActiveStart: 78-51-9907lroi 1 tablet by mouth three times daily as neededHYDROcodone- acetaminophen ([place]) 5-325 MG tablet TAKE 1 TABLET BY MOUTH 3 TIMES A DAY NEEDED FOR PAIN*MUS LAST 30 DAYS 06/30/2023 Activeacetaminophen 325 mg / oxyCODONE hydrochloride 5 mg oral tablet (20 sources)Opioid AgonistStart: 36-96-5356Pqqqhsjh 5 mg-325 mg oral tablet See Instructions, 40 tab(s), Refill(s) 0, 1-2 tab(s) Oral q4hr, [facility]/pharmacy #[id number], 165, cm, 03/19/24 13:53:00 EDT, Height/Length Dosing, 65, kg, 03/19/24 13:53:00 EDT, Weight Dosing Start Date: 04/27/24 Status: OrderedStart: 23-93-8462Dabexttw 5 mg-325 mg oral tablet See Instructions, 40 tab(s), Refill(s) 0, 1-2 tab(s) Oral q4hr, [facility]/pharmacy #[id number], 160, cm, 03/25/23 6:16:00 EDT, Height/Length Dosing, 73.5, kg, 03/25/23 6:16:00 EDT, Weight Dosing Start Date: 04/06/23 Status: OrderedStart: 06-30-2018 End: 77-30-4367rksb 1 tablet by mouth three times dailyOxycodone-Acetaminophen 5-325 mg Tablet Discontinued 1 TAB PO Three times daily June 30, 2018 1:00am September 27, 2023 2:54pm pain End: 67-04-7118xnpo 1-2 tablets by mouth every six hoursoxyCODONE-acetaminophen (Percocet) 5-325 MG tablet TAKE 1-2 TABLETS BY MOUTH EVERY 6 HOURS 09/18/2024 Eyvggqsanubm39 hr buPROPion hydrochloride 300 mg extended release oral tablet (20 sources)AminoketoneStart: 37-16-3238ujig 1 tablet by mouth once daily Bupropion Hcl 300 mg tablet extended release 24 hr Active 300 MG PO Daily 90 90 December 10, 2024 8:39am Complies with drug therapyStart: 09-22-2023 End: 12-12-3670Gfzctclrt Hcl 300 mg tablet extended release 24 hr Discontinued 0 .ROUTE .COMPLEX 90 March 20, 2024 8:35am December 10, 2024 8:40am TAKE 1 TABLET DAILY IN THE MORNINGStart: 51-05-9657tdFGDIrbt XL (Wellbutrin XL) 300 MG 24 hr tablet 03/26/2023 ActiveStart: 46-27-9616ebjw 1 tablet by mouth twice dailyWellbutrin XL 300 mg/24 hours Tab-ER 300 mg = 1 tab(s), Oral, BID, Refills(s) 0, Depression Start Date: 03/24/23 Status: OrderedStart: 06-30-2018 End: 01-01-6379dgkx 1 tablet by mouth once dailyBupropion Hcl [...] mg oral capsule (3 sources)Nonsteroidal Anti-inflammatory DrugStart: 56-68-1294haow 1 capsule by mouth twice daily as needed for painCeleBREX 100 mg Cap 100 mg = 1 cap(s), Oral, BID, PRN for pain, # 60 cap(s), Refills(s) 0, Pharmacy: [facility]/pharmacy #[id number], 165, cm, 03/19/24 13:53:00 EDT, Height/Length Dosing, 65, kg, 03/19/24 13:53:00 EDT, Weight Dosing Start Date: 04/27/24 Status: OrderedStart: 61-10-0930bddy 1 capsule by mouth twice daily as needed for painCeleBREX 100 mg Cap 100 mg = 1 cap(s), Oral, BID, PRN for pain, # 60 cap(s), Refills(s) 0, Pharmacy: [facility]/pharmacy #[id number], 160, cm, 03/25/23 6:16:00 EDT, Height/Length Dosing, 73.5, kg, 03/25/23 6:16:00 EDT, Weight Dosing Start Date: 04/06/23 Status: Orderedcephalexin 500 mg oral capsule (1 source)Cephalosporin AntibacterialStart: 04-06-2023 End: 95-04-7050xmyx 1 capsule by mouth every eight hoursKeflex 500 mg Cap 500 mg = 1 cap(s), Oral, q8hr, X 7 day(s), # 21 cap(s), Refills(s) 0, Pharmacy: [facility]/pharm[facility] #[id number], 160, cm, 03/25/23 6:16:00 EDT, Height/Length Dosing, 73.5, kg, 03/25/23 6:16:00 EDT, Weight Dosing Start Date: 04/06/23 Stop Date: 04/13/23 Status: Orderedcitalopram 10 mg oral tablet (20 sources)Serotonin Reuptake InhibitorStart: 25-52-1639Scqisbgwmt 10 mg tablet Active 0 .ROUTE .COMPLEX July 24, 2024 8:42am TAKE 1 TABLET DAILYStart: 72-64-0418Vghgnzznxz 10 mg tablet Active 0 .ROUTE .[facility] July 24, 2024 7:42am TAKE 1 TABLET DAILYStart: 01-26-2024 End: 77-98-6097Yulxzihkqc 10 mg tablet Discontinued 0 .ROUTE .[place] [id number] July 24, 2024 8:42am December 10, 2024 8:40am TAKE 1 TABLET DAILYStart: 01-26-2024 End: 97-38-9616Bxjbgptpca 10 mg tablet Discontinued 0 .ROUTE .[place] January 26, 2024 8:54am July 2458:42am TAKE 1 TABLET DAILYStart: 01-26-2024 End: 10-48-4600Fkleazpjxc 10 mg tablet Discontinued 0 .ROUTE [address] [address] January 26, 2024 7:54am July 2457:42am TAKE 1 TABLET DAILYStart: 01-26-2024 Citalopram Active 0 .ROUTE [facility] January 26, 2024 8:54am TAKE 1 TABLET DAILYStart: 08-17-2023 End: 23-90-3996ugyzivnntb (CeleXA) 10 MG tablet 08/17/2023 ActiveStart: 06-30-2018 End: 92-53-8937cqdg 1 tablet by mouth once dailyCitalopram 20 mg Tablet Discontinued 20 MG PO Daily June 30, 2018 1:00am September 27, 2023 2:50pm depressiontake 1 tablet by mouth every twenty-four hoursCitalopram Hydrobromide 10 MG 1 tablet Orally Once a day Activedocusate sodium 100 mg oral capsule (3 sources)Start: 85-54-8797ypez 1 capsule by mouth twice daily as needed for constipationColace 100 mg Cap 100 mg = 1 cap(s), Oral, BID, PRN for constipation, # 20 cap(s), Refills(s) 0, Pharmacy: [facility]/pharmacy #[id number], 165, cm, 03/19/24 13:53:00 EDT, Height/Length Dosing, 65, kg, 03/19/24 13:53:00 EDT, Weight Dosing Start Date: 04/27/24 Status: OrderedStart: 03-05-3956fffz 1 capsule by mouth twice daily as needed for constipationColace 100 mg Cap 100 mg = 1 cap(s), Oral, BID, PRN for constipation, # 20 cap(s), Refills(s) 0, Pha rmacy: [facility]/pharmacy #[id number], 160, cm, 03/25/23 6:16:00 EDT, Height/Length Dosing, 73.5, kg, 03/25/23 6:16:00 EDT, Weight Dosing Start Date: 04/06/23 Status: Orderedleflunomide 10 mg oral tablet (20 sources)Antirheumatic AgentStart: 06-30-2018 End: 33-82-4843fwjh 1 tablet by mouth once dailyLeflunomide (Arava) 10 mg tablet Active 10 MG PO Daily September 27, 2023 12:00am Complies with drug therapy lidocaine 0.05 mg/mg medicated patch (8 sources)Antiarrhythmic, Amide Local AnestheticStart: 06-13-2024 End: 58-13-3917fdynm 1 dose transdermal route every twelve hours, then apply 1 dose transdermal route every twelvehourslidocaine (Lidoderm) 5 % patch Indications: Bilateral shoulder pain, unspecified chronicity Apply 1patch over 12 hours topically Daily Remove & discard patch within 12 hours or as directed by . 30 patch 5 06/13/2024 12/10/2024 Bndxqg56 hr metoprolol succinate 100 mg extended release oral tablet (20 sources)beta-Adrenergic BlockerStart: 56-08-8888mkpw 1 tablet by mouth once dailyMetoprolol Succinate 100 mg tablet extended release 24 hr Active 100 MG PO Daily September 27, 2023 12:00am Complies with drug therapyStart: 04-06-2023 End: 26-12-6424hphmgbcaas 100 mg ER Tab 100 mg = 1 tab(s), Tab-ER, Oral, Start date 04/06/23 9:00:00 PM EDT, 04/06/23 9:58:00 EDT Start Date: 04/06/23 Stop Date: 04/06/23 Status: CompletedStart: 25-30-1823xjvc 1 tablet by mouth at bedtime metoprolol 100 mg ER Tab 100 mg = 1 tab(s), Oral, Bedtime, Refills(s) 0, High blood pressure Start Date: 04/06/23 Status: Orderedmetoprolol succinate XL (Toprol-XL) 100 MG 24 hr tablet Activeomeprazole 40 mg delayed release oral capsule (20 sources)Proton Pump InhibitorStart: 90-21-6100Igithqjkup 40 mg capsule,delayed release(DR/EC) Active 40 MG PO Daily April 15, 2025 12:30pm take on an empty stomach, 30 minutes prior to bkfst Complies with drug therapyStart: 06-04-2024 End: 22-46-2429Xtrjltsxbw 40 mg capsule,delayed release(DR/EC) Discontinued 0 .ROUTE .COMPLEX 90 June 04, 2024 8:00am April 15, 2025 12:31pm TAKE 1 CAPSULE ONCE DAILY ON AN EMPTY STOMACH FOLLOWED IN 30 MINUTES BY BREAKFAST Start: 09-27-2023 End: 32-28-4723umqs 1 capsule by mouth once dailyOmeprazole 40 mg capsule,delayed release(DR/EC) Discontinued 40 MG PO Daily September 27, 2023 12:00am June 04, 2024 8:00amOmeprazole 40 mg capsule,delayed release(DR/EC) (4 sources)Start: 54-75-6932Xrsekmlmtr 40 mg capsule,delayed release(DR/EC) Active 0 .ROUTE [...] disintegrating oral tablet (9 sources)Serotonin-3 Receptor AntagonistStart: 11-29-8094izua 1 tablet by mouth every eight hours as needed for nausea and vomitingOndansetron 4 mg tablet,disintegrating Active 4 MG PO Every 8 hours as needed for nausea and vomiting April 13, 2024 12:00am Complies with drug therapypregabalin 150 mg oral capsule (20 sources)Start: 04-38-0057zpgedfixgl (Lyrica) 150 MG capsule 03/31/2023 ActiveStart: 06-30-2018 End: 26-80-4700iexe 1 capsule by mouth three times dailyPregabalin (Lyrica) 75 mg Capsule Discontinued 75 MG PO Three times daily June 30, 2018 1:00am September 27, 2023 2:54pm pain, neuropathySemaglutide (1 source)Start: 75-12-7676zwaedh 2 mg by subcutaneous injection every week Semaglutide Active 2 MG SUBCUT every week 10 05April 17, 2024 12:00am tiZANidine 4 mg oral tablet (20 sources)Central alpha-2 Adrenergic AgonistStart: 33-38-4871mquq 3 tablets by mouth once daily in the eveningTizanidine 4 mg tablet Active 12 MG PO Every evening April 29, 2025 12:00am Complies with drug therapyStart: 09-25-2024 take 1 capsule by mouth once dailyTizanidine 4 mg capsule Active 4 MG PO Daily September 25, 2024 10:36am muscle spasm Complies with drug therapyStart: 68-18-7405amys 1 capsule by mouth four times dailyTizanidine 4 mg capsule Active 4 MG PO Four times daily September 25, 2024 10:36am Complies with drugtherapy Start: 09-27-2023 End: 50-43-9783fkyh 1 capsule by mouth every six hoursTizanidine 4 mg capsule Discontinued 4 MG PO Every 6 hours September 27, 2023 2:53pm September 25, 2024 10:38am muscle spasmStart: 48-05-7439pdiu 1 tablet by mouth in the morning, then take 3 tablets by mouth at bedtimeZanaflex 4 mg Tab See Instructions, 1 tab(s) Oral in AM 3 tabs at bedtime, Refills(s) 0 Start Date:03/24/23 Status: Ordered Start: 06-30-2018 End: 78-48-5467wamv 1 capsule by mouth twice dailyTizanidine 4 mg Capsule Discontinued 4 MG PO Twice daily June 30, 2018 1:00am September 27, 2023 2:54pm muscle spasmtake 1 capsule by mouth every six hourstiZANidine HCl 4 MG 1 tablet as needed Oral every 6 hours for 30 Active Completed/Discontinued Medications MedicationDrug Class(es)DatesSig (Normalized)Sig (Original)alendronic acid 70 mg oral tablet (15 sources)BisphosphonateStart: 06-30-2018 End: 60-23-2784nvib 1 tablet by mouth every weekAlendronate (Fosamax) 70 mg Tablet Discontinued 70 MG PO every week June 30, 2018 1:00am September 27, 2023 2:54pmaspirin 81 mg delayed release oral tablet (20 sources)Platelet Aggregation Inhibitor, Nonsteroidal Anti-inflammatory Drug Start: 06-30-2018 End: 74-93-4053pqjj 1 tablet by mouth once dailyAspirin 81 mg Tablet,Delayed Release (Dr/Ec) Discontinued 81 MG PO Daily June 30, 2018 1:00amMarc2023 2:48pm blood clot preventionbetamethasone 3 mg/ml / betamethasone acetate 3 mg/ml injectable suspension (4 sources)CorticosteroidStart: 06-05-2024 End: 04-56-4857vtkbdkwnslbsp acetate-betamethasone sodium phosphate (Celestone) injection 2 mLStart: 06-05-2024 End: mL, Intra-articular, Once PRN Procedure, Starting on Tue06/05/24 at 1426, For 1 dosecalcium carbonate 1500 mg oral tablet (18 sources)Start: 35-45-3535xqfb 1 tablet by mouth every twelve hoursCalcium 600 MG 1 tablet with meals Orally Twice a day Apr, Not-Taking/PRNStart: 82-49-7295ddne 1 tablet by mouth every twelve hoursCalcium 600 MG 1 tablet with meals Orally Twice a day Apr, Not-Gspski27 hr dilTIAZem hydrochloride 360 mg extended release oral tablet (15 sources)Calcium Channel BlockerStart: 06-30-2018 End: 34-69-5133hrme 1 tablet by mouth once dailyDiltiazem Hcl 360 mg Tablet Extended Release 24 Hr Discontinued 360 MG PO Daily June 30, 20181:00am September 27, 2023 2:50pm tachycardiadoxycycline hyclate 100 mg oral capsule (20 sources)Tetracycline-class DrugStart: 09-27-2023 End: 74-36-1890jihx 1 capsule by mouth twice dailyDoxycycline Hyclate 100 mg capsule Discontinued 100 MG PO Twice daily September 27, 2023 12:00am September 28, 2023 3:15pmStart: 55-32-4496yeea 1 capsule by mouth every twelve hours Doxycycline Hyclate 100 MG 1 capsule Orally Twice a day for 5 days Jun, ActiveStart: 07-06-2018 End: 57-81-6266synl 1 tablet by mouth twice dailyDoxycycline Hyclate 100 mg tablet Discontinued 100 MG PO Twice daily 10 5 0 July 06, 2018 1:00am September 27, 2023 2:50pmibuprofen 800 mg oral tablet (15 sources)Nonsteroidal Anti-inflammatory DrugStart: 07-06-2018 End: 11-53-6519zmll 1 tablet by mouth three times dailyIbuprofen 800 mg tablet Discontinued 800 MG PO Three times daily 60 0 July 06, 2018 1:00am September 27, 2023 2:50pm Postoperative pain of extremity Other acute postprocedural painlisinopril 5 mg oral tablet (20 sources)Angiotensin Converting Enzyme InhibitorStart: 09-27-2023 End: 74-32-1947imle 1 tablet by mouth once dailyLisinopril 5 mg tablet Discontinued 5 MG PO Daily September 27, 2023 12:00am September 25, 2024 10:35am Start: 04-07-2023 End: 15-84-0540ioiedhfpca 5 mg Tab 5 mg = 1 tab(s), Tab, Oral, Start date 04/07/23 9:00:00 AM EDT, 04/06/23 9:58:00EDT Start Date: 04/07/23 Stop Date: 04/07/23 Status: CompletedStart: 11-09-2022 End: 91-48-9628klza 1 tablet by mouth in the morninglisinopril 5 MG tablet Take 1 tablet by mouth in the morning. 01/21/2023 07/17/2024 Discontinuedphentermine hydrochloride 37.5 mg oral capsule (20 sources)Sympathomimetic Amine AnorecticStart: 09-02-2023 End: 35-76-1113fscg 1 capsule by mouth once daily 30 minutes after breakfast Phentermine 37.5 mg capsule Discontinued 37.5 MG PO Daily 0 September 02, 2023 4:19pm September 02, 2023 4:44pm Overweight Overweight must administer 30 minutes before or 1-2 hours after breakfastStart: 85-83-8877avvn 1 tablet by mouth once dailyPhentermine HCl 37.5 MG take 1 tablet by mouth once daily for 30 Jan, ActiveStart: 42-14-3651kzue 1 tablet by mouth every twenty-four hoursAdipex-P 37.5 MG 1 tablet Orally Once a day for 30 days Dec, Active Start: 95-69-6746thbs 1 tablet by mouth every twenty-four hoursAdipex-P 37.5 MG 1 tablet Orally Once a day for 30 days Jul, ActiveSemaglutide (6 sources)Start: 10-23-2024 End: 83-44-6886ulispk 2 mg by subcutaneous injection every weekSemaglutide 2 mg/dose (8 mg/3 mL) pen injector Discontinued 2 MG SUBCUT every week 3 October 23, 2024 8:46am October 23, 2024 8:47amStart: 10-23-2024 End: 14-81-9614vyjcqb 2 mg by subcutaneous injection every weekSemaglutide 2 mg/dose (8 mg/3 mL) pen injector Discontinued 2 MG SUBCUT every week 3 October 8:46am October 23, 2024 8:47amStart: 04-17-2024 End: 20-02-4730siycgw 2 mg by subcutaneous injection every weekSemaglutide 2 mg/dose (8 mg/3 mL) pen injector Discontinued 2 MG SUBCUT every week 3 April 17, 2024 12:00am October 23, 2024 8:46amStart: 04-17-2024 End: 63-30-8371ukgklq 2 mg by subcutaneous injection every weekSemaglutide 2 mg/dose (8 mg/3 mL) pen injector Discontinued 2 MG SUBCUT every week 3 April 17, 2024 12:00am October 23, 2024 8:46amSemaglutide 2 mg/dose (8 mg/3 mL) pen injector (6 sources)Start: 10-23-2024 End: 61-86-8564iieiqq 2 mg by subcutaneous injection every weekSemaglutide 2 mg/dose (8 mg/3 mL) pen injector Discontinued 2 MG SUBCUT every week 3 October 8:46am October 23, 2024 8:47amStart: 04-17-2024 End: 32-25-4967pxuzlb 2 mg by subcutaneous injection every weekSemaglutide 2 mg/dose (8 mg/3 mL) pen injector Discontinued 2 MG SUBCUT every week 3 April 17, 2024 12:00am October 23, 2024 8:46amStart: 52-23-4450vbixcn 2 mg by subcutaneous injection every weekSemaglutide 2 mg/dose (8 mg/3 mL) pen injector Active 2 MG SUBCUT every week 3 April 172:00amStart: 04-17-2024 inject 2 mg by subcutaneous injection every weekSemaglutide 2 mg/dose (8 mg/3 mL) pen injector Active 2 MG SUBCUT every week 3 April 161:00pm traZODone hydrochloride 100 mg oral tablet (15 sources)Serotonin Reuptake InhibitorStart: 06-30-2018 End: 33-38-2642Zddgdsifs 100 mg Tablet Discontinued 50 MG PO Daily at bedtime June 30, 2018 1:00am September 27, 2023 2:54pm insomniaStart: 06-30-2018 End: 97-62-6041iwau 50 mg by mouth once daily at bedtimeTrazodone Discontinued 50 MG PO Daily at bedtime June 30, 2018 1:00am September 27, 2023 2:54pm24 hr upadacitinib 15 mg extended release oral tablet (20 sources)Start: 03-24-2023 End: 43-61-1430sipu 1 tablet by mouth once dailyUpadacitinib 15 [...] Nucleoside Analog DNA Polymerase InhibitorStart: 09-27-2023 End: 56-70-9094czph 2000 mg by mouth twice dailyValacyclovir Discontinued 2000 MG PO Twice daily September 27, 2023 12:00am September 28, 2023 3:15pmStart: 03-31-2023 End: 20-13-4172fluRULyignxh (Valtrex) 1 g tablet Take 2,000 mg [...] pain (20 sources)Indigestion; Translations: [Epigastric pain] Resolved: 147499-60-2233KvcrrhwzBesnb bronchitis (10 sources)Acute bronchitis; Translations: [Acute bronchitis due to other specified organisms]EpisodicAnxiety disorders (20 sources)Generalized anxiety disorder; Translations: [Generalized anxiety disorder]ChronicCardiac dysrhythmias (20 sources)Paroxysmal tachycardia; Translations: [Paroxysmal tachycardia, unspecified]Onset: 25-98-1726DgjlaooSgawatq dysrhythmias (5 sources)Fnghayiszai22-92-4973ZwthzzeoZqcdzlf kidney disease (20 sources)Chronic kidney disease; Translations: [Chronic kidney disease, unspecified]83-24-6715YwzrizaDkknoppudt heart failure; nonhypertensive (20 sources)Chronic systolic heart failure; Translations: [Chronic systolic (congestive) heart failure]Onset: 162157-86-4918FyipxyrJicuxov on above: LHC: normal - 2011, Echo: LVEF 61%, normal RV size/function, RVSP 25 - 03/2024,Echo: LVEF 55%, normal RV size/function, RVSP 28 - 11/2024Deficiency and other anemia (20 sources)Anemia; Translations: [Anemia, unspecified]07-03-3315Zdncoujo Deficiency and other anemia (5 sources)Anemia, unspecified; Translations: [Anemia, unspecified]Onset: 54-07-8033MznejezwDlhrmvnjic and other anemia (9 sources)Pernicious anemia; Translations: [Vitamin B12 deficiency anemia due to intrinsic factor deficiency]57-28-9122KkkzplehNjyltvprbo and other anemia (7 sources)Vitamin B12 deficiency anemia due to intrinsic factor deficiency; Translations: [Pernicious anemia]67-97-1407QozwjyadTvsxvhmnt of lipid metabolism (9 sources)Hypercholesterolemia; Translations: [Pure hypercholesterolemia, unspecified]Onset: 200210-75-0038SzrrpbmXagluunsq hypertension (20 sources)Essential hypertension; Translations: [Essential (primary) hypertension]ChronicFluid and electrolyte disorders (4 sources)Dehydration; Translations: [Dehydration]EpisodicHypertension with complications and secondary hypertension (9 sources)Hypertensive renal disease; Translations: [Hypertensive chronic kidney disease with stage 1 throughstage 4 chronic kidney disease, or unspecified chronic kidney disease]64-03-9122UwgbdotBrahsacc disorders (5 sources)Immunosuppression; Translations: [Immunodeficiency, unspecified] ChronicImmunizations and screening for infectious disease (9 sources)Contact with and (suspected) exposure to other viral communicable diseases; Translations: [Contact with and (suspected) exposure to COVID-19] EpisodicIntestinal infection (16 sources)Infectious colitis, enteritis and gastroenteritis; Translations: [Infectious gastroenteritis and colitis, unspecified]67-75-8722JxqcsayqFwacu disorders and dislocations; trauma-related (1 source)Dislocation of joint of upper limb; Translations: [Unspecified dislocation of unspecified shoulder joint, initial encounter]67-83-8298Wshzagdd Malaise and fatigue (20 sources)Fatigue; Translations: [Other fatigue]97-66-8088CmowpnpfXvlsxekgo disorders (9 sources)Excessive and frequent menstruation; Translations: [Excessive and frequent menstruation with regular cycle]Onset: 66-13-9365WowvaytVlku disorders (20 sources)Mild recurrent major depression; Translations: [Major depressive disorder, recurrent, mild]Onset: 70-23-7118UlxcrcjDsbfyroevgarkh (20 sources)Degenerative joint disease of hand; Translations: [Primary osteoarthritis, left hand]Onset: 92-67-6424CmyouqaWzjlq acquired deformities (2 sources)Other biomechanical lesions of cervical region; Translations: [Other biomechanical lesions of cervical region]Onset: 59-88-6789HajzntfyXqmjs aftercare (17 sources)Drug monitoring done; Translations: [Encounter for therapeutic drug level monitoring]EpisodicOther aftercare (3 sources)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; Translations: [Long-term (current) use of other medications]Onset: [id number] aftercare (8 sources)Therapeutic drug level - finding; Translations: [Encounter for therapeutic drug level monitoring]EpisodicOther aftercare (2 sources)Encounter for therapeutic drug level monitoring; Translations: [Encounter for therapeutic drug level monitoring]EpisodicOther aftercare (6 sources)Drug therapy finding; Translations: [Other alf (current) drug therapy]14-86-6339LaaditogVkkyb aftercare (3 sources)Taking high risk medication; Translations: [Other alf (current) drug therapy]51-42-9771RpeioxhwDrodq circulatory disease (18 sources)History of pericarditis; Translations: [Personal history of other diseases of the circulatory system]EpisodicOther circulatory disease (11 sources)H/O: cardiovascular disease; Translations: [Personal history of other diseases of the circulatory system]05-79-0915DivqdcfyGgenv circulatory disease (1 source)Personal history of other diseases of the circulatory system; Translations: [Personal history of other diseases of the circulatory system] EpisodicOther connective tissue disease (2 sources)History of total arthroplasty of right shoulder; Translations: [Presence of right artificial shoulder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 [Mass/Vol]9.2 mg/dL8.5-10.1FSt. Mary's Medical Center, Ironton CampusChloride [Moles/Vol]107 mmol/V73-582IfrhtfomzUniversity Hospitals Geneva Medical CenterCholesterol [Mass/Vol]196 mg/dL<=200[facility] Cholesterol in HDL [Mass/Vol]68 mg/bXXgzs84-45LhdcbsxkhUniversity Hospitals Geneva Medical Center Comment on above:> or =60 mg/dl - LOW CARDIOVASCULAR RISK<40 mg/dl - HIGH CARDIOVASCULAR RISKCO2 [Moles/Vol]26.9 mmol/L21.0-32.0[facility] CenterCreatinine [Mass/Vol]1.29 mg/dLHigh0.55-1.02[facility] CenterGFR/1.73 sq M.predicted MDRD (S/P/Bld) [Vol rate/Area]50 mL/min/{1.73_m2} Low>=60 mL/min/1.73m 2FSt. Mary's Medical Center, Ironton CampusGlucose [Mass/Vol]72 mg/xTGzx32-365QwffbufjdUniversity Hospitals Geneva Medical CenterPotassium [Moles/Vol]4.3 mmol/L 3.5-5.1FSt. Mary's Medical Center, [facility] CampusProtein [Mass/Vol]7.0 g/dL6.4-8.2 [facility] Southodium [Moles/Vol]143 mmol/Y806-329DavxrwdwmUniversity Hospitals Geneva Medical CenterTriglyceride [Mass/Vol]66 mg/dL<=150[facility] CenterTSH Qn1.339 m[IU]/L0.358-3.740[facility] Urea nitrogen [Mass/Vol]20.0 mg/dLHigh7.0-18.0[facility] Urea nitrogen/Creatinine [Mass ratio]15.5 mg/mgUniversity Hospitals Geneva Medical Center Laboratory - Hematology and Cell countson 10-46-7629Kdfzdjjb granulocytes/100 WBC (Bld)0.4 %0.0-0.5FSt. Mary's Medical Center, Ironton CampusLeukocytes [#/volume] corrected for nucleated erythrocytes in Blood by Automated counon 04-21-4038MER corrected for nucl RBC Auto (Bld) [#/Vol]Leukocytes [#/volume] corrected for nucleated erythrocytes in Blood by Automated coun4.0-11.0[facility] CenterLymphocytes Auto (Bld) [#/Vol]on 33-11-9329Amtnwrvzvln (Bld) [#/Vol]Lymphocytes [#/volume] in Blood by Automated count1.2-3.8[facility] CenterLymphocytes/100 WBC Auto (Bld)on 08-31-2024 Lymphocytes/100 WBC (Bld)Lymphocytes/100 leukocytes in Blood by Automated count 20.5-60.0[facility] HospitalH Auto (RBC) [Entitic mass]on 18-82-9700TLG (RBC) [Entitic mass]MCH [Entitic mass] by Automated count26.7-34.0 [facility] CenterMCHC Auto (RBC) [Mass/Vol]on 49-74-0988GOKD (RBC) [Mass/Vol]MCHC [Mass/volume] by Automated count29.9-35.2FTrinity Health System West CampusV Auto (RBC) [Entitic vol]on 78-84-7620ZEM (RBC) [Entitic vol] MCV [Entitic volume] by Automated bdpavAxtn56.0-99.0[facility] CenterMicroalbumin [Mass/volume] in Urineon 80-60-8035Deewplo DL <= 20 mg/L (U) [Mass/Vol]Microalbumin [Mass/volume] in Urine<=30.0[facility] CenterMonocytes Auto (Bld) [#/Vol]on 84-92-0681Ioltiemat (Bld) [#/Vol]Automated blood monocyte count0.3-0.8[facility] CenterMonocytes/100 WBC Auto (Bld)on 77-38-0599Njbxyutrj/100 WBC (Bld)Automated monocyte %1.7-12.0 [facility] CenterNeutrophils Auto (Bld) [#/Vol]on 08-31-2024 Neutrophils (Bld) [#/Vol]Neutrophils [#/volume] in Blood by Automated count 1.4-6.5FSt. Mary's Medical Center, Iront[facility] CampusNeutrophils/100 WBC Auto (Bld)on 93-64-1509Clqercsvafp/100 WBC (Bld)Automated neutrophil %43.0-75.0[facility] CenterNo Panel Informationon 26-57-0240Luevswcstbi # (Auto)0.2 10 3/uL0.0-0.7FSt. Mary's Medical Center, [facility] CampusImmature Granulocyte # (Auto)0.02 10 3/uL0.00-0.03[facility] CenterUrine Random Jfelvjlhlu945.19 mg/dL20.00-300.00[facility] CenterPlatelet mean volume Auto (Bld) [Entitic vol]on 80-48-2885Twhlyoxn mean volume (Bld) [Entitic vol]Platelet mean volume [Entitic volume] in Blood by Automated countLow9.5-13.5FSt. Mary's Medical Center, Iront[facility] CampusPlatelets Auto (Bld) [#/Vol]on 68-69-3645Iyibkogkp (Bld) [#/Vol]Platelets [#/volume] in Blood by Automated vvjao204-261MkrinmdbqUniversity Hospitals Geneva Medical CenterRBC Auto (Bld) [#/Vol]on 31-43-1862TMS (Bld) [#/Vol]Erythrocytes [#/volume] in Blood by Automated countLow4.20-5.40[facility] Southerum or plasma albumin/globulin mass ratioon 54-16-7747Mudphpw/Globulin [Mass ratio]Serum or plasma albumin/globulin mass ratioSelect Medical Specialty Hospital - Columbus Southerum or plasma anion gap determinationon 69-40-0031Fhwxv gap [Moles/Vol]Serum or plasma anion gap determinationSelect Medical Specialty Hospital - [facility] Southerum or plasma total cholesterol/high density lipoprotein (HDL) cholesterol mass albina 09-46-6909Rylefxnhgbu.total/Cholesterol in HDL [Mass ratio]Serum or plasma total cholesterol/high density lipoprotein (HDL) cholesterol mass ratUniversity Hospitals Geneva Medical CenterComment on above:3.3 - 4.4 LOW RISK4.4 - 7.1 AVERAGE RISK7.1 - 11.0 MODERATE RISK>11.0 HIGH RISKUrine microalbumin/creatinine mass ratioon 79-13-7867Dmjhdhv/Creatinine DL <= 20 mg/L (U) [Mass ratio]Urine microalbumin/creatinine mass ratio0.0-29.9[facility] CenterComment on above:NO MICROALBUMINURIA 0-29 MG/GCLINICAL MICROALBUMINURIA 30-300 MG/GMACROALBUMINURIA >300 MG/GBasophils Auto (Bld) [#/Vol]on 78-54-7586Uhdrrveln (Bld) [#/Vol]Automated basophil count0.0-0.1 [facility] CenterBasophils/100 WBC Auto (Bld)on 06-21-2024 Basophils/100 WBC (Bld)Automated basophil %0.2-2.0[facility] CenterEosinophils/100 WBC Auto (Bld)on 84-00-5200Jpjcyutzaxp/100 WBC (Bld) Automated eosinophil %0.9-7.0[facility] CenterErythrocyte distribution width Auto (RBC) [Ratio]on 16-05-8575Smfowfyfdei distribution width (RBC) [Ratio]Erythrocyte distribution width [Ratio] by Automated count11.0-15.0 [facility] CenterEstimated glomerular filtration rate (GFR) non- Americanon 55-07-7262LXF/1.73 sq M.predicted among non-blacks MDRD (S/P/Bld) [Vol rate/Area]Estimated glomerular filtration rate (GFR) non- AmericanLow>=60 mL/min/1.73m 2FSt. Mary's Medical Center, Ironton CampusGlobulin Calc (S) [Mass/Vol]on 39-26-9086Hfrldebl (S) [Mass/Vol]Serum globulin measurement by calculation (mass/volume)[facility] CenterHematocrit Auto (Bld) [Volume fraction]on 25-59-8315Lfpcfrcqvq (Bld) [Volume fraction]Hematocrit [Volume Fraction] of Blood by Automated rpgsmEij62.0-48.0[facility] CenterHemoglobin [Mass/volume] in Bloodon 08-29-2190Qhvrzawglq (Bld) [Mass/Vol]Hemoglobin [Mass/volume] in MbpzlLgf68.0-16.0[facility] CenterLaboratory - Chemistry and Chemistry - challengeon 06-21-2024 Albumin [Mass/Vol]3.8 g/dL3.4-5.0[facility] CenterALP [Catalytic activity/Vol]48 U/S51-461OfqleworyUniversity Hospitals Geneva Medical CenterALT [Catalytic activity/Vol]13 U/JPhr50-98NgcfpjcqiUniversity Hospitals Geneva Medical CenterAST [Catalytic activity/Vol]14 U/NZml25-09KvwgmvyysUniversity Hospitals Geneva Medical CenterBilirubin [Mass/Vol] 0.5 mg/dL0.2-1.0[facility] CenterCalcium [Mass/Vol]9.1 mg/dL 8.5-10.1FSt. Mary's Medical Center, Iront[facility] CampusChloride [Moles/Vol]105 mmol/L98-107 [facility] CenterCO2 [Moles/Vol]26.1 mmol/L21.0-32.0[facility] CenterCreatinine [Mass/Vol]1.43 mg/dLHigh0.55-1.02[facility] CenterGFR/1.73 sq M.predicted MDRD (S/P/Bld) [Vol rate/Area]45 mL/min/{1.73_m2}Low>=60 mL/min/1.73m 2FSt. Mary's Medical Center, Iront[facility] CampusGlucose [Mass/Vol]76 mg/cI35-542JzhgkuuudUniversity Hospitals Geneva Medical CenterPotassium [Moles/Vol] 3.4 mmol/LLow3.5-5.1FSt. Mary's Medical Center, [facility] CampusProtein [Mass/Vol]6.7 g/dL 6.4-8.2FUC West Chester Hospitalodium [Moles/Vol]144 mmol/R413-853 [facility] CenterUrea nitrogen [Mass/Vol]18.0 mg/dL7.0-18.0 [facility] CenterUrea nitrogen/Creatinine [Mass ratio]12.6 mg/mg [facility] CenterLaboratory - Hematology and Cell countson 30-93-9424QUH (Bld) [Velocity]6 mm/h<=30[facility] Immature granulocytes/100 WBC (Bld)0.3 %0.0-0.5FSt. Mary's Medical Center, [facility]ont[facility] Campus Leukocytes [#/volume] corrected for nucleated erythrocytes in Blood by Automated counon 72-63-4419IKI corrected for nucl RBC Auto (Bld) [#/Vol]Leukocytes [#/volume] corrected for nucleated erythrocytes in Blood by Automated counLow 4.0-11.0[facility] CenterLymphocytes Auto (Bld) [#/Vol]on 78-85-5855Knxysdgliqt (Bld) [#/Vol]Lymphocytes [#/volume] in Blood by Automated count1.2-3.8[facility] CenterLymphocytes/100 WBC Auto (Bld)on 88-43-8467Ysaipmuwtcd/100 WBC (Bld)Lymphocytes/100 leukocytes in Blood by Automated count20.5-60.0[facility] HospitalH Auto (RBC) [Entitic mass]on 29-56-1646CYY (RBC) [Entitic mass]MCH [Entitic mass] by Automated count 26.7-34.0[facility] CenterMCHC Auto (RBC) [Mass/Vol]on 74-76-5283EGEH (RBC) [Mass/Vol]MCHC [Mass/volume] by Automated count29.9-35.2 [facility] CenterMCV Auto (RBC) [Entitic vol]on 00-99-2293RTR (RBC) [Entitic vol]MCV [Entitic volume] by Automated count81.0-99.0[facility] CenterMonocytes Auto (Bld) [#/Vol]on 67-93-5394Dvmszzfks (Bld) [#/Vol]Automated blood monocyte count0.3-0.8[facility] Monocytes/100 WBC Auto (Bld)on 68-72-7787Dlxtiyilc/100 WBC (Bld)Automated monocyte %1.7-12.0[facility] CenterNeutrophils Auto (Bld) [#/Vol]on 41-40-6994Crppkxzkvfc (Bld) [#/Vol]Neutrophils [#/volume] in Blood by Automated count1.4-6.5FSt. Mary's Medical Center, Ironton CampusNeutrophils/100 WBC Auto (Bld)on 13-00-8086Xrfxxjhdhtx/100 WBC (Bld)Automated neutrophil %Low43.0-75.0 [facility] CenterNo Panel Informationon 54-78-2024Zelmiayatxh # (Auto)0.1 10 3/uL0.0-0.7FSt. Mary's Medical Center, Ironton CampusImmature Granulocyte # (Auto)0.01 10 3/uL0.00-0.03[facility] CenterPlatelet mean volume Auto (Bld) [Entitic vol]on 47-02-6454Srsfxkdx mean volume (Bld) [Entitic vol] Platelet mean volume [Entitic volume] in Blood by Automated countLow9.5-13.5 [facility] CenterPlatelets Auto (Bld) [#/Vol]on 06-21-2024 Platelets (Bld) [#/Vol]Platelets [#/volume] in Blood by Automated -665 [facility] CenterRBC Auto (Bld) [#/Vol]on 73-99-8132JMQ (Bld) [#/Vol]Erythrocytes [#/volume] in Blood by Automated countLow4.20-5.40[facility] Southerum or plasma albumin/globulin mass ratioon 06-21-2024 Albumin/Globulin [Mass ratio]Serum or plasma albumin/globulin mass ratio [facility] Southerum or plasma anion gap determinationon 22-54-8917Hwwmt gap [Moles/Vol]Serum or plasma anion gap determinationUniversity Hospitals Geneva Medical CenterNo Panel Informationon 62-92-2703Kdvflim Scruggs, ARRT 06/09/2024 1:08 PM L Inj/Asp: L glenohumeral on 06/05/2024 2:26 PM Indications: pain Details: 25 G needle, ultrasound-guided Medications: 2 mL betamethasone acetate-betamethasone sodium phosphate 6 (3-3) MG/ML Consent was given by the patient. [facility] CityXR Shoulder - left 2 Viewson 26-87-4710Scywckl Result: 3 views left shoulder, Grashey/Zanca/outlet, taken today and saved to the permanent medical record are reviewed. No fractures. [facility] WNNovant Health [facility]antyne Medical CenterXR Shoulder - left 2 Viewson 71-18-1587Qgxwirukr Study observation (narrative)[facility] HealthcareMain OR Intraoperative Recordon 76-97-7798Vtyg OR Intraoperative RecordMain OR Intraoperative RecordNormalFisher [facility] w/ Auto Diffon 85-24-0340Wodjmtalz/100 WBC (Bld)1.3 %Normal0.0-2.[address] [facility] HospitalComment on above:Performed By: #### [id number] ####[facility] [address] [place] [address] Basophils/Leukocytes Auto (Bld) [Pure # fraction]0.1 E9/LNormal0.0-0.2Fpricilla R Adams Cowley Shock Trauma CenterComment on above:Performed By: #### [id number] ####[address] [address]Xaunxzhtbzh (Bld) [#/Vol]0.2 E9/LNormal0.0-0.5FUniversity Hospitals Health SystemComment on above: Performed By: #### [id number] ####[address] [address]Xniguctcxph/100 WBC (Bld)3.7 %Normal0.0-8.0St. [facility]'S HospitalComment on above:Performed By: #### [id number] ####[address] [address]Lrjmtlovawo distribution width (RBC) [Ratio]15.3 %High10.9-14.2FUniversity Hospitals Health System Comment on above:Performed By: #### [id number] ####[address] [address]Iedwkqjqsf (Bld) [Volume fraction] 27.7 %Low34.0-46.0St. [facility]'S HospitalComment on above:Performed By: #### [id number] ####[address] [address]Xbxdfotvcv (Bld) [Mass/Vol]9.6 g/dLLow12.0-16.0[facility] Comment on above:Performed By: #### [id number] ####[address] [address]Ahtofhycqlu (Bld) [#/Vol]0.9 E9/LLow 1.0-4.0St[facility]'S HospitalComment on above:Performed By: #### [id number] ####[address] [address] Lymphocytes/100 WBC (Bld)20.4 %Zvqvgd33.0-50.0St. [facility]'S HospitalComment on above:Performed By: #### [id number] ####[address] [address]GQP (RBC) [Entitic mass]33.7 pgNormal 27.0-34.0St. [facility]'S HospitalComment on above:Performed By: #### [id number] ####[address] [address]OABL (RBC) [Mass/Vol]34.6 g/pIFxpqaw57.4-36.0St[facility]'S HospitalComment on above:Performed By: #### [id number] ####[address] [address]WNX (RBC) [Entitic vol]97.3 iZJrjdak57.0-100.0 [facility]S HospitalComment on above:Performed By: #### [id number] ####[address] [address] Monocytes (Bld) [#/Vol]0.8 E9/LNormal0.2-1.0St[facility]'S HospitalComment on above:Performed By: #### [id number] ####[address] [address]Liiyzhnjntm (Bld) [#/Vol]2.4 E9/L Normal2.0-7.5FUniversity Hospitals Health SystemComment on above:Performed By: #### [id number] ####[address] [address]Wltufiqjlux/100 WBC (Bld)55.1 %Rxygek64.0-75.0[facility] Comment on above:Performed By: #### [id number] ####[address] [address]Tzdvkcxq310.0 E9/HZkgbfu120.0-500.0 [facility]S HospitalComment on above:Performed By: #### [id number] ####[address] [address] Platelet mean volume (Bld) [Entitic vol]7.0 fLNormal6.4-10.8St. [facility]'S HospitalComment on above:Performed By: #### [id number] ####[facility] [address] [place], [place] [address]VVK (Bld) [#/Vol]2.9 E12/LLow 4.3-5.9St. [facility]'S HospitalComment on above:Performed By: #### [id number] ####[facility] [address] [place], [place] [address]PHP corrected for nucl RBC Auto (Bld) [#/Vol]4.3 E9/LNormal4.0-11.0St[facility]'S HospitalComment on above:Result Comment: Peripheral smear review performed.Performed By: #### [id number] ####[facility] [address] [place], [place] [address]Qtplavcnk Instructionson 04-27-2024 Discharge InstructionsDischarge Instructions ZAIDIRADHA :1960 [...] has already been scheduled Where: [place] [address]- [facility] (1) Medications What How Much When Instructions Next Dose New acetaminophen-oxycodone (Percocet 5 mg-325 mg oral tablet) See instructions 1-2 tab(s) Oral q4hr Pickup at [facility]/pharmacy #6177 New celecoxib (CeleBREX 100 mg Cap) 1 Capsules By Mouth 2 times a day as needed for for pain [facility]upat [facility]/pharm[facility] New docusate (Colace 100 mg Cap) 1 Capsules By Mouth 2 times a day as needed for for constipation [facility] Unchanged buPROPion (Wellbutrin XL 300 mg/ [...] Tablets By Mouth Every day Pharmacy Information [facility]/pharmacy #[id number]: [address], [place] [phone] What How Much When Comments Stop Taking acetaminophen-hydrocodone (acetaminophen-hydrocodone 325 mg-5 mg oral tablet) 1 TabletsBy Mouth Every 6 hours [employer] [place] [place] [facility] AFTER YOUR SHOULDER ARTHROSCOPY [...] betadine and band-aids t (more content not included)...[facility] Jewish HospitalComment on above:Result Comment: Electronically Signed By: Rebecca HARO, Rodger Vergara\.zari\Date and Time Signed: 04/27/24 10:11 EDTHEMATOLOGY Ordered By: SYSTEM SYSTEM on 99-05-9602Vvwstyiaf/100 WBC (Bld)1.3 %Normal0.0 - 2.0 %Remisol HemeBasophils/Leukocytes [...] - 4.0 E9/LRemisol HemeLymphocytes/100 WBC (Bld)20.4 % Zmmtsh28.0 - 50.0 %Remisol HemeMCH (RBC) [Entitic mass]33.7 cjXjobth05.0 - 34.0 pgRemisol HemeMCHC (RBC) [Mass/Vol]34.6 g/xDDptqld58.4 - 36.0 gm/dLRemisol Heme MCV (RBC) [Entitic vol]97.3 mGUdzufv94.0 - 100.0 fLRemisol HemeMonocytes (Bld) [#/Vol]0.8 E9/LNormal0.2 - 1.0 E9/LRemisol HemeMonocytes/100 WBC (Bld)19.5 %High 4.0 - 14.0 %Remisol HemeNeutrophils (Bld) [#/Vol]2.4 E9/LNormal2.0 - 7.5 E9/L Remisol HemeNeutrophils/100 WBC (Bld)55.1 %Gvhtgl42.0 - 75.0 %Remisol Heme Tfuedtqt558.0 E9/HXycpnm607.0 - 500.0 E9/LRemisol HemePlatelet mean volume (Bld) [Entitic vol]7.0 fLNormal6.4 - 10.8 fLRemisol HemeRBC (Bld) [#/Vol]2.9 E12/LLow 4.3 - 5.9 E12/LRemisol HemeWBC corrected for nucl RBC Auto (Bld) [#/Vol]4.3 E9/L Normal4.0 - 11.0 E9/LRemisol HemeComment on above:Result Comment: Peripheral smear review performed.Inpatient Patient Summaryon 71-42-7874Mekyrzank Patient SummaryInpatient Patient Summary [address] [address] [facility] Clinical Discharge Instructions PERSON INFORMATION Name: [facility]I [facility][id number] PHYSICIANS Admitting Physician: Jordan Yuan DO Attending Physician: Jordan Yuan DO PCP: JOHN ASHBY DO Discharge Diagnosis: Comment: PATIENT EDUCATION INFORMATION Instructions: Iris Yuan - After Your Shoulder Arthroscopy (Custom) Medication Leaflets: Follow up: MEDICATION LIST New Medications [facility]/pharmacy #[id number], [address], [place] [id number], [phone] acetaminophen-oxycodone (Percocet 5 mg-325 mg oral tablet) [...] 1 Tablets By Mouth every 6 hours. Comment:The [facility] HospitalMain OR PACU I Recordon 77-05-7226Sgdr OR PACU I RecordMain OR PACU I Record PACU Phase I Document Type FT Summary Primary Physician: Jordan Yuan DO Finalized Date/Time: 04/27/24 11:12:00 Pt. Name: RADHA ZAIDI Levy Carrillo/Sex: 1960 Female Med Rec #: [id number] Physician: Jordan Yuan DO Financial #: [id number] Pt. Type: A Room/Bed: [place] [address] Admit/Disch: 04/27/24 05:21:12 - Institution: Case Times [...] Signatures Signed By: Ling Kathleen RN 04/27/24 11:12[facility] HospitalMain OR Preoperative Recordon 70-79-1765Hzew OR Preoperative RecordMain OR Preoperative Record PreOp Document Type FT Summary Primary Physician: Jordan Yuan DO Finalized Date/Time: 04/27/24 09:02:45 Pt. Name: ZAIDIRADHA/Sex: 1960 Female Med Rec #: [id number] Physician: Jordan Yuan DO Financial #: [id number] Pt. Type: A Room/Bed: [place] [address] Admit/Disch: 04/27/24 05:21:12 - Institution: Case Times [...] Signatures Signed By: Carli Gomez RN 04/27/24 09:02The Jewish HospitalOperative Report on 34-90-8529Ijsnkdvrk ReportOperative Report Patient: RADHA ZAIDI Age: 63 years Sex: Female : 1960 Associated Diagnoses: None Author: Jordan Yuan DO DATE OF SURGERY: 04/27/2024 SURGEON: Jordan Yuan D.O. SHORTAGE WORKER: Jeff Marshall PREOPERATIVE DIAGNOSIS: Rotator cuff tear, [...] the greater tuberosity was cleared with the Eckley wand to improve visualization. An accessory anterosuperolateral portal was made with outside in technique using spinal needle localization. A passport cannula was placed. Soft tissuewas cleared from the lesser tuberosity with the Eckley wand. A bony bleeding bed was created with the arthroscopic bur on the reverse setting. The punch was placed to the anterior portal and used to create a socket for the corkscrew anchor at the upper portion of the lesser tuberosity. The anchor was inserted. The sutures were passed using th (more content not included)...[facility] HospitalComment on above:Result Comment: Electronically Signed By: Jordan Yuan DO\.br\Date and Time Signed: 04/27/24 15:13 EDTOutpatient Surgery Discharge Instructionon 11-11-7855Vslnzyiqvp Surgery Discharge InstructionOutpatient Surgery Discharge Instruction [place] [id number] Patient Discharge Instructions PERSON INFORMATION Name: RADHA [...] Information: You may receive a survey from [employer] asking you to rate your care experience. [...] STAY New Medications [id number], [address], [place] [phone], [phone] acetaminophen-oxycodone (Percocet 5 mg-325 mg oral tablet) [...] every 6 hours. PATIENT EDUCATION INFORMATION Instructions: [place], [place] [facility] AFTER YOUR SHOULDER ARTHROSCOPY [...] place until follow up (more content not included)...The Jewish HospitalProceduralon 25-32-1092Hrdojfanom Procedural Patient: RADHA ZAIDI Age: 63 years [...] Using maximal sterile barrier technique per current [facility] guidelines including hand hygeine, Guidance (Ultrasound used [...] The patient tolerated the procedure as expected.Normal [facility]. 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 Family History: Primary malignant neoplasm of prostate Father Acute myocardial infarction Mother Procedure history: Total shoulder replacement ([id number]) on 04/06/2023 at 62 Years. Cervical laminectomy (9337500319). Amputation of finger (460078052). Removal of lung, Partial (25007). Open reduction and internal fixation of fracture Leg (401903212). Foot surgery (4079919156). Lumbar discectomy (413464721). Social History Social & Psychosocial Habits Alcoh (more content not included)...NormalEcu Health Edgecombe Hospitaler R [facility] CenterBasophils Auto (Bld) [#/Vol]on 28-14-0612Kujoyptee (Bld) [#/Vol]0.0 10 3/uL0.0-0.1 [facility] CenterBasophils/100 WBC Auto (Bld)on 03-27-2024 Basophils/100 WBC (Bld)0.7 %0.2-2.0[facility] Eosinophils/100 WBC Auto (Bld)on 62-87-5231Ckjtznyiwrs/100 WBC (Bld)2.0 %0.9-7.0 [facility] CenterErythrocyte distribution width Auto (RBC) [Ratio]on 96-11-1841Nchybpwnfhm distribution width (RBC) [Ratio]14.7 %11.0-15.0 [facility] CenterHematocrit Auto (Bld) [Volume fraction]on 08-75-2021Swmdhfyxyu (Bld) [Volume fraction]30.8 %Low36.0-48.0[facility] CenterHemoglobin [Mass/volume] in Bloodon 83-28-6881Fljxkyuvvf (Bld) [Mass/Vol]10.0 g/dLLow12.0-16.0[facility] CenterLaboratory - Chemistry and Chemistry - challengeon 64-31-9832Xbewdnfem (Vitamin B12) [Mass/Vol]172 pg/vIQdqpoelc572-7049CbarepqgpUniversity Hospitals Geneva Medical CenterComment on above:Performed at: - [facility] [id number] Director: Lito Matamoros PhD, Phone: [phone] - Hematology and Cell countson 01-84-1555Kbtwdrfn granulocytes/100 WBC (Bld)0.5 %0.0-0.5FSt. Mary's Medical Center, Ironton CampusLeukocytes [#/volume] corrected for nucleated erythrocytes in Blood by Automated counon 18-19-7692ZXT corrected for nucl RBC Auto (Bld) [#/Vol]4.4 10 3/uL4.0-11.0[facility] Lymphocytes Auto (Bld) [#/Vol]on 63-51-9826Titkmissmdx (Bld) [#/Vol]1.9 10 3/uL 1.2-3.8[facility] CenterLymphocytes/100 WBC Auto (Bld)on 92-34-2812Sswfamofeun/100 WBC (Bld)42.3 %20.5-60.0[facility] HospitalH Auto (RBC) [Entitic mass]on 71-39-5872BAE (RBC) [Entitic mass]31.9 pg 26.7-34.0[facility] CenterMCHC Auto (RBC) [Mass/Vol]on 69-50-9995DFJA (RBC) [Mass/Vol]32.5 g/dL29.9-35.2FSt. Mary's Medical Center, Ironton CampusMCV Auto (RBC) [Entitic vol]on 45-21-6679UQA (RBC) [Entitic vol]98.4 fL 81.0-99.0[facility] CenterMonocytes Auto (Bld) [#/Vol]on 14-11-3548Zxmmspfno (Bld) [#/Vol]0.6 10 3/uL0.3-0.8[facility] CenterMonocytes/100 WBC Auto (Bld)on 97-27-5415Nbaesbpzi/100 WBC (Bld)12.7 %High 1.7-12.0[facility] CenterNeutrophils Auto (Bld) [#/Vol]on 93-99-8000Tmuvmeidhnb (Bld) [#/Vol]1.8 10 3/uL1.4-6.5FSt. Mary's Medical Center, [facility]onton CampusNeutrophils/100 WBC Auto (Bld)on 05-10-2784Txlkyjnvoka/100 WBC (Bld)41.8 % Low43.0-75.0[facility] CenterNo Panel Informationon 03-27-2024 Eosinophils # (Auto)0.1 10 3/uL0.0-0.7FSt. Mary's Medical Center, [facility] CampusFolate 14.00 ng/mL8.60-58.90[facility] CenterImmature Granulocyte # (Auto)0.02 10 3/uL0.00-0.03[facility] CenterPlatelet mean volume Auto (Bld) [Entitic vol]on 66-34-1805Kkmyvraf mean volume (Bld) [Entitic vol] 9.3 fLLow9.5-13.5FSt. Mary's Medical Center, [facility] CampusPlatelets Auto (Bld) [#/Vol]on 60-04-3980Lawomueru (Bld) [#/Vol]235 10 3/uG746-749TvcfwepxpUniversity Hospitals Geneva Medical CenterRBC Auto (Bld) [#/Vol]on 32-75-7815ENY (Bld) [#/Vol]3.13 10 6/uLLow 4.20-5.40[facility] CenterReticulocytes/100 RBC Auto (Bld)on 92-52-8098Hiwzxgtexjawg/100 RBC (Bld)2.37 %0.60-3.10[facility] Southerum or plasma methylmalonate measurement (moles/volume)on 03-27-2024 Methylmalonate [Moles/Vol]195 nmol/L0-378[facility] Comment on above:This test was developed and its performance characteristicsdetermined by [employer]. It has not been cleared orapproved by the Food and Drug Administration.Performed at: [address] [id number] Director: Goldy Aparicio MD, Phone: [phone] Chest 2 Viewson 20-96-0194MW Chest 2 ViewsExam Date/Time: 03/19/2024 12:57 EDT [...] Ka,r in mGy = na DAP = naNormalSt. Anthony'S HospitalBMPon 05-39-8825Gshzh gap [Moles/Vol]9 mmol/LNormal6-16St. [facility]'S HospitalComment on above:Performed By: #### [id number] #### [facility] [address], [place] [address]Ccrcoja [Mass/Vol]9.1 mg/dLNormal8.9-11.1FUniversity Hospitals Health SystemComment on above:Performed By: #### [id number] #### [facility] [address], [place] [address]Ocpdahkc [Moles/Vol]109 mmol/EZjpcsn169-481WdxipzSt. Anthony'S HospitalComment on above:Performed By: #### [id number] #### [facility] [address], [place] [address]XO0 [Moles/Vol]27 mmol/XZchjwr06-20XqjhznSt. Anthony'S Hospital Comment on above:Performed By: #### [id number] #### [facility] [address], [place] [address]Xrnggzktvf [Mass/Vol]1.1 mg/dLNormal0.5-1.3FUniversity Hospitals Health SystemComment on above:Performed By: #### [id number] #### [facility] [address], [place] [address]Tjaplbs [Mass/Vol]85 mg/lXWspsxd15-783NybsutSt. Anthony'S HospitalComment on above:Performed By: #### [id number] #### [facility] [address], [place] [address]Nmfojoqwu [Moles/Vol]3.8 mmol/LNormal3.5-5.3FUniversity Hospitals Health SystemComment on above:Performed By: #### [id number] #### [facility] [address], [place] [address]Fuwyju [Moles/Vol]141 mmol/TRppoul030-436JagnvmSt. Anthony'S HospitalComment on above:Performed By: #### [id number] #### [facility] [address], [place] [address]Wkmv nitrogen [Mass/Vol]17 mg/dLNormal5-21St. Anthony'S HospitalComment on above:Performed By: #### [id number] #### [facility] [address] [place] [address]Urxq nitrogen/Creatinine [Mass ratio]16 No MpejjEfbbwx02-89 [facility]'S HospitalComment on above:Performed By: #### [id number] #### [facility] [address] [place] [address]VOO w/ Auto Diffon 57-90-5607Stovevtsk/100 WBC (Bld)0.6 %Normal 0.0-2.0St. [facility]'S HospitalComment on above:Performed By: #### [id number] #### [facility] [address], [place] [address]Bxkfoeroa/Leukocytes Auto (Bld) [Pure # fraction]0.0 E9/LNormal 0.0-0.2FUniversity Hospitals Health SystemComment on above:Performed By: #### [id number] #### [facility] [address] [place] [address]Oeqegefwfja (Bld) [#/Vol]0.1 E9/LNormal0.0-0.5FUniversity Hospitals Health SystemComment on above:Performed By: #### [id number] #### [facility] [address] [place] [address]Aeynijsdcvb/100 WBC (Bld)1.6 %Normal0.0-8.0St. [facility]'S HospitalComment on above:Performed By: #### [id number] #### [facility] [address] [place] [address]Hhxjwihimhk distribution width (RBC) [Ratio]14.7 %High10.9-14.2 [facility]S HospitalComment on above:Performed By: #### [id number] #### [facility] [address] [place] [address]Tnldusqgai (Bld) [Volume fraction]27.9 %Low34.0-46.0St. [facility]'S HospitalComment on above:Performed By: #### [id number] #### [facility] [address] [place] [address]Yyfijnukat (Bld) [Mass/Vol]9.8 g/dLLow12.0-16.0St. [facility]'S HospitalComment on above:Performed By: #### [id number] #### [facility] [address] [place] [address]Oaddseriedc (Bld) [#/Vol]1.1 E9/LNormal1.0-4.0St. [facility]'S HospitalComment on above:Performed By: #### [id number] #### [facility] [address] [place] [address]Gdkbytjkfkd/100 WBC (Bld)28.9 %Wwynni31.0-50.0St. [facility]'S HospitalComment on above:Performed By: #### [id number] #### [facility] [address] [place] [address]HAN (RBC) [Entitic mass]33.8 xvFcrmuc30.0-34.0St. [facility]'S HospitalComment on above:Performed By: #### [id number] #### [facility] [address] [place] [address]ZRBW (RBC) [Mass/Vol]35.1 g/uTFzctzi70.4-36.0St. [facility]'S HospitalComment on above:Performed By: #### [id number] #### [facility] [address] [place] [address]190QYE (RBC) [Entitic vol]96.2 kKUluxjq19.0-100.0St. [facility]'S HospitalComment on above:Performed By: #### [id number] #### [facility] [address] [place] [address]Kvdzdkugy (Bld) [#/Vol]0.6 E9/LNormal0.2-1.0St. [facility]'S HospitalComment on above:Performed By: #### [id number] #### [facility] [address] [place] [address]Trgqjciowpk (Bld) [#/Vol]2.0 E9/LNormal2.0-7.5FUniversity Hospitals Health SystemComment on above:Performed By: #### [id number] #### [facility] [address] [place] [address]Opsrfbyqtud/100 WBC (Bld)52.8 %Fyzvoz01.0-75.0St. [facility]'S HospitalComment on above:Performed By: #### [id number] #### [facility] [address] [place] [address]Qvykgjwd533.0 E9/UOnodvj291.0-500.0[facility] Comment on above:Performed By: #### [id number] #### [facility] [address] [place] [address]Rvaqbomx mean volume (Bld) [Entitic vol]7.0 fLNormal6.4-10.8 [facility]S HospitalComment on above:Performed By: #### [id number] #### [facility] [address], [place] [address]SNT (Bld) [#/Vol]2.9 E12/LLow4.3-5.9[facility] Comment on above:Performed By: #### [id number] #### [facility] [address], [place] [address]AJD corrected for nucl RBC Auto (Bld) [#/Vol]3.8 E9/LLow 4.0-11.0St. [facility]'S HospitalComment on above:Result Comment: Peripheral smear review performed.Performed By: #### [id number] #### [facility] [address], [place] [address]RQBWARSJOOjbvihm By: SYSTEM SYSTEM on 90-87-2557Mgyvn gap [Moles/Vol]9 mmol/LNormal6 - 16 mEq/LRemisol ChemCalcium [Mass/Vol]9.1 mg/dL Normal8.9 - 11.1 mg/dLRemisol ChemChloride [Moles/Vol]109 mmol/QVaqhyl340 - 111 mmol/LRemisol ChemCO2 [Moles/Vol]27 mmol/KUutzvy61 - 31 mmol/LRemisol Chem Creatinine [Mass/Vol]1.1 mg/dLNormal0.5 - 1.3 mg/dLRemisol CwjwsMUD30 mL/min/1.73 m2Low>=59mL/min/1.73 c3Qlkebbb ChemGlucose [Mass/Vol]85 mg/dLNormal 55 - 199 mg/dLRemisol ChemPotassium [Moles/Vol]3.8 mmol/LNormal3.5 - 5.3 mmol/L Remisol ChemSodium [Moles/Vol]141 mmol/VOoebvh479 - 145 mmol/LRemisol ChemUrea nitrogen [Mass/Vol]17 mg/dLNormal5 - 21 mg/dLRemisol ChemUrea nitrogen/Creatinine [Mass ratio]16 mg/fgGqmbfk74 - 20Remisol ChemHEMATOLOGY Ordered By: SYSTEM SYSTEM on 42-22-8358Uwvsnrnde/100 WBC (Bld)0.6 %Normal0.0 - 2.0 %Remisol HemeBasophils/Leukocytes [...] - 4.0 E9/LRemisol HemeLymphocytes/100 WBC (Bld)28.9 % Rspjmh64.0 - 50.0 %Remisol HemeMCH (RBC) [Entitic mass]33.8 hcOmirrb55.0 - 34.0 pgRemisol HemeMCHC (RBC) [Mass/Vol]35.1 g/tOMuyzvw62.4 - 36.0 gm/dLRemisol Heme MCV (RBC) [Entitic vol]96.2 qGDlshju54.0 - 100.0 fLRemisol HemeMonocytes (Bld) [#/Vol]0.6 E9/LNormal0.2 - 1.0 E9/LRemisol HemeMonocytes/100 WBC (Bld)16.1 %High 4.0 - 14.0 %Remisol HemeNeutrophils (Bld) [#/Vol]2.0 E9/LNormal2.0 - 7.5 E9/L Remisol HemeNeutrophils/100 WBC (Bld)52.8 %Wzlcov08.0 - 75.0 %Remisol Heme Fdvfxhwa925.0 E9/LCamotx983.0 - 500.0 E9/LRemisol HemePlatelet mean volume (Bld) [Entitic vol]7.0 fLNormal6.4 - 10.8 fLRemisol HemeRBC (Bld) [#/Vol]2.9 E12/LLow 4.3 - 5.9 E12/LRemisol HemeWBC corrected for nucl RBC Auto (Bld) [#/Vol]3.8 E9/L Low4.0 - 11.0 E9/LRemisol HemeComment on above:Result Comment: Peripheral smear review performed.eGFRon 30-44-8541wYPH25 mL/min/1.73 m2Low>=59[facility] Tra[facility] CenterComment on above:Order Comment: Order added by Discern Expert. Performed By: #### [id number] #### [facility] [address], [place] [address]Pcpaskgyg Auto (Bld) [#/Vol]on 63-33-6733Lvagubnsb (Bld) [#/Vol]0.0 10 3/uL0.0-0.1FSt. Mary's Medical Center, [facility] CampusBasophils/100 WBC Auto (Bld)on 26-98-7328Ouvmmobik/100 WBC (Bld)0.8 %0.2-2.0[facility] CenterEosinophils/100 WBC Auto (Bld)on 49-47-1629Ejdtyscbunp/100 WBC (Bld)1.5 % 0.9-7.0[facility] CenterErythrocyte distribution width Auto (RBC) [Ratio]on 36-27-7920Oquwgzkumcy distribution width (RBC) [Ratio]15.1 %High 11.0-15.0[facility] CenterHematocrit Auto (Bld) [Volume fraction]on 25-69-1119Lxvsdapdwe (Bld) [Volume fraction]35.4 %Low36.0-48.0 [facility] CenterHemoglobin [Mass/volume] in Bloodon 02-14-2024 Hemoglobin (Bld) [Mass/Vol]11.0 g/dLLow12.0-16.0[facility] CenterIron binding capacity [Mass/volume] in Serum or Plasmaon 52-72-5354Yfvs binding capacity [Mass/Vol]303.0 ug/dL250.0-450.0[facility] CenterIron saturation [Mass Fraction] in Serum or Plasmaon 89-38-8574Naoy saturation [Mass fraction]81.2 %[facility] CenterLaboratory - Chemistry and Chemistry - challengeon 22-38-5308Nmwgebnxp (Vitamin B12) [Mass/Vol]225.0 pg/mL193.0-986.0[facility] CenterFerritin [Mass/Vol]338.0 ng/mLHigh8.0-252.0[facility] CenterIron [Mass/Vol]246.0 ug/mERxrs83.0-170.0[facility] CenterLaboratory - Hematology and Cell countson 69-60-3445Ryotuxkm granulocytes/100 WBC (Bld)0.8 % High0.0-0.5FSt. Mary's Medical Center, Iront[facility] CampusLeukocytes [#/volume] corrected for nucleated erythrocytes in Blood by Automated counon 81-88-8014QUQ corrected for nucl RBC Auto (Bld) [#/Vol]4.7 10 3/uL4.0-11.0[facility] Lymphocytes Auto (Bld) [#/Vol]on 81-21-9396Ieyjcjpmyjw (Bld) [#/Vol]2.3 10 3/uL 1.2-3.8[facility] CenterLymphocytes/100 WBC Auto (Bld)on 61-31-7448Bhyogzyozdu/100 WBC (Bld)48.7 %20.5-60.0[facility] Auto (RBC) [Entitic mass]on 58-71-2077LML (RBC) [Entitic mass]31.9 pg 26.7-34.0[facility] CenterMCHC Auto (RBC) [Mass/Vol]on 15-41-2653FHJG (RBC) [Mass/Vol]31.1 g/dL29.9-35.2FSt. Mary's Medical Center, [facility]ont[facility] CampusMCV Auto (RBC) [Entitic vol]on 92-92-5082NDX (RBC) [Entitic vol]102.6 fL High81.0-99.0[facility] CenterMonocytes Auto (Bld) [#/Vol]on 12-53-9867Xifchbbyt (Bld) [#/Vol]0.6 10 3/uL0.3-0.8[facility] CenterMonocytes/100 WBC Auto (Bld)on 57-85-4394Bjjpqeeby/100 WBC (Bld)13.3 %High 1.7-12.0[facility] CenterNeutrophils Auto (Bld) [#/Vol]on 52-92-1458Dsbqfiezlzo (Bld) [#/Vol]1.7 10 3/uL1.4-6.5FSt. Mary's Medical Center, [facility] CampusNeutrophils/100 WBC Auto (Bld)on 21-23-1842Eyksmkgwhib/100 WBC (Bld)34.9 % Low43.0-75.0[facility] CenterNo Panel Informationon 02-14-2024 Eosinophils # (Auto)0.1 10 3/uL0.0-0.7FSt. Mary's Medical Center, [facility] CampusImmature Granulocyte # (Auto)0.04 10 3/uLHigh0.00-0.03[facility] Folate9.40 ng/mL8.60-58.90[facility] CenterPlatelet mean volume Auto (Bld) [Entitic vol]on 58-45-1501Pmjfbzju mean volume (Bld) [Entitic vol]9.1 fLLow9.5-13.5FSt. Mary's Medical Center, [facility] CampusPlatelets Auto (Bld) [#/Vol]on 96-81-8006Lzvuslzlm (Bld) [#/Vol]197 10 3/eM816-174FsygqbdwjUniversity Hospitals Geneva Medical CenterRBC Auto (Bld) [#/Vol]on 02-28-0796VOA (Bld) [#/Vol]3.45 10 6/uLLow 4.20-5.40[facility] CenterBasophils Auto (Bld) [#/Vol]on 73-63-7779Yfemexwiz (Bld) [#/Vol]0.0 10 3/uL0.0-0.1FSt. Mary's Medical Center, [facility] CampusBasophils/100 WBC Auto (Bld)on 85-19-5748Tibmzfttd/100 WBC (Bld)0.8 % 0.2-2.0[facility] CenterEosinophils/100 WBC Auto (Bld)on 88-02-6140Glcugivufkv/100 WBC (Bld)2.1 %0.9-7.0[facility] Erythrocyte distribution width Auto (RBC) [Ratio]on 40-29-5766Oklhfpjxzpl distribution width (RBC) [Ratio]14.2 %11.0-15.0[facility] Estimated glomerular filtration rate (GFR) non- Americanon 02-02-2024 GFR/1.73 sq M.predicted among non-blacks MDRD (S/P/Bld) [Vol rate/Area]51 mL/min/{1.73_m2}Low>=60[facility] CenterGlobulin Calc (S) [Mass/Vol]on 10-48-5492Irpwgail (S) [Mass/Vol]2.9 g/dLUniversity Hospitals Geneva Medical CenterHematocrit Auto (Bld) [Volume fraction]on 29-89-2846Rcqgrwzcpx (Bld) [Volume fraction]31.9 %Low36.0-48.0[facility] CenterHemoglobin [Mass/volume] in Bloodon 99-15-2168Xrarrzfehc (Bld) [Mass/Vol]10.2 g/dLLow 12.0-16.0[facility] CenterLaboratory - Chemistry and Chemistry - challengeon 62-89-9477Wheoqzv [Mass/Vol]3.9 g/dL3.4-5.0[facility] CenterALP [Catalytic activity/Vol]48 U/Y52-234UhsibzuocUniversity Hospitals Geneva Medical CenterALT [Catalytic activity/Vol]20 U/H52-22HtxogpypdUniversity Hospitals Geneva Medical Center AST [Catalytic activity/Vol]23 U/C81-08KrxkmjokkUniversity Hospitals [facility] Center Bilirubin [Mass/Vol]0.5 mg/dL0.2-1.0[facility] CenterCalcium [Mass/Vol]9.1 mg/dL8.5-10.1FSt. Mary's Medical Center, [facility] CampusChloride [Moles/Vol] 108 mmol/FWeef25-274VmssxcikzUniversity Hospitals Geneva Medical CenterCO2 [Moles/Vol]24.8 mmol/L 21.0-32.0[facility] CenterCreatinine [Mass/Vol]1.09 mg/dLHigh 0.55-1.02[facility] CenterGFR/1.73 sq M.predicted MDRD (S/P/Bld) [Vol rate/Area]mL/min/{1.73_m2}>=60[facility] CenterGlucose [Mass/Vol]87 mg/tI36-121LqklpjjuyUniversity Hospitals Geneva Medical CenterPotassium [Moles/Vol] 3.9 mmol/L3.5-5.1FSt. Mary's Medical Center, [facility] CampusProtein [Mass/Vol]6.8 g/dL 6.4-8.2FUC West Chester Hospitalodium [Moles/Vol]144 mmol/U305-879 [facility] CenterUrea nitrogen [Mass/Vol]17.0 mg/dL7.0-18.0 [facility] CenterUrea nitrogen/Creatinine [Mass ratio]15.6 mg/mg [facility] CenterLaboratory - Hematology and Cell countson 32-05-3493LXA (Bld) [Velocity]12 mm/h<=30[facility] Immature granulocytes/100 WBC (Bld)0.5 %0.0-0.5FSt. Mary's Medical Center, [facility] Campus Leukocytes [#/volume] corrected for nucleated erythrocytes in Blood by Automated counon 26-55-4390NBI corrected for nucl RBC Auto (Bld) [#/Vol]3.8 10 3/uLLow 4.0-11.0[facility] CenterLymphocytes Auto (Bld) [#/Vol]on 75-94-7607Jwvkmlqziib (Bld) [#/Vol]1.5 10 3/uL1.2-3.8[facility] CenterLymphocytes/100 WBC Auto (Bld)on 53-97-1365Tridsrvzhrg/100 WBC (Bld)40.3 % 20.5-60.0[facility] Medical CenterMCH Auto (RBC) [Entitic mass]on 52-46-2612MOL (RBC) [Entitic mass]31.7 pg26.7-34.0[facility] Medical CenterMCHC Auto (RBC) [Mass/Vol]on 84-71-7260EGZR (RBC) [Mass/Vol]32.0 g/dL 29.9-35.2FSt. Mary's Medical Center, [facility]ont[facility] CampusMCV Auto (RBC) [Entitic vol]on 58-69-1691DVA (RBC) [Entitic vol]99.1 vAFjan41.0-99.0[facility] CenterMonocytes Auto (Bld) [#/Vol]on 61-67-9418Jjxuopulu (Bld) [#/Vol]0.6 10 3/uL0.3-0.8[facility] CenterMonocytes/100 WBC Auto (Bld)on 23-99-0373Xpmyncghr/100 WBC (Bld)16.1 %High1.7-12.0[facility] Medical CenterNeutrophils Auto (Bld) [#/Vol]on 99-90-0963Zvelhfljysr (Bld) [#/Vol]1.5 10 3/uL1.4-6.5FSt. Mary's Medical Center, [facility] CampusNeutrophils/100 WBC Auto (Bld)on 00-25-8239Ldincfuxebo/100 WBC (Bld)40.2 %Low43.0-75.0[facility] CenterNo Panel Informationon 14-36-0177Bmcygnldtmr # (Auto)0.1 10 3/uL0.0-0.7 [facility] CenterImmature Granulocyte # (Auto)0.02 10 3/uL 0.00-0.03[facility] Medical CenterPlatelet mean volume Auto (Bld) [Entitic vol]on 68-60-7732Nfsuqqns mean volume (Bld) [Entitic vol]9.3 fLLow 9.5-13.5FSt. Mary's Medical Center, [facility] CampusPlatelets Auto (Bld) [#/Vol]on 34-58-4709Sxhhjubwn (Bld) [#/Vol]236 10 3/bI853-680SperfwbftUniversity Hospitals Geneva Medical CenterRBC Auto (Bld) [#/Vol]on 91-20-7641DLJ (Bld) [#/Vol]3.22 10 6/uLLow 4.20-5.40[facility] Southerum or plasma albumin/globulin mass ratioon 38-97-9925Etjllii/Globulin [Mass ratio]1.3 {ratio}[facility] Southerum or plasma anion gap determinationon 04-87-1536Mvcxp gap [Moles/Vol]15.1 mmol/LFSt. Mary's Medical Center, Iront[facility] CampusXR Shoulder - right 2 Viewson 85-50-2803Utoiysp Result: 4 views right shoulder, Grashey/Zanca/outlet/axillary, taken today and saved to the permanent medical record. Prosthesis is unchanged in position and alignment. Fracture at the base of the acromion unchanged in appearance.[facility] University CityXR Shoulder - right 2 Viewson 89-76-9050Bnkusmibz Study observation (narrative)[facility] UPPER EXTREMITY W/O CONTRAST RIGHTon 09-08-2023 Exam [...] Coleman Fields MD Transcribed by: DANISHA Technologist: [facility]ENTERRadiology, Radiologist, - 09/08/2023 Exam Date/Time: 09/06/2023 17:13 [...] MD Transcribed by: DANISHA Technologist: ARNULFO DORSEY HealthcareWV UPPER EXTREMITY W/O CONTRAST RIGHTOrdered By: Radiologist Radiology on 89-34-5449[employer]YFI [employer] Work Phone: ct Upper Extremity w/o Contrast Righton 18-72-5554AH Upper Extremity w/o Contrast RightExam Date/Time: 09/06/2023 [...] Coleman Fields MD Transcribed by: DANISHA Technologist: [facility] LAB MISCELLANEOUS-LCon 85-29-2419INPH LAB MISCELLANEOUSCOMMENTMercy Hospital South, formerly St. Anthony's Medical CenterComment on above:Test Ordered: [id number] Interleukin-6, Serum Interleukin-6, Serum <2.5 pg/mL Reference [...] endotracheal intubation or mechanical ventilation. Performed at: [facility] [id number] PhD Saturnino Morse [facility] TEST [id number] Delta Medical Center TEST NAMEinterleukin [address] [place] [address] Original Ordering Provider: DO Jordan Roth [facility] Miscellaneous-LCon 96-65-2262Uyy MiscellaneousCOMMENTInvalid Interpretation Code St. Anthony'S HospitalComment on above:Result Comment: Test Ordered: [id number] Interleukin-6, Serum Interleukin-6, Serum <2.5 pg/mL Reference [...] endotracheal intubation or mechanical ventilation. Performed at: Lab[address] [id number] PhD Saturnino MorsePerformed By: #### [id number] ####[facility] [address] [place], [place]CBC w/ Auto Diffon 13-01-4193Hvwsrhvp Absolute0.0 E9/LNormal0.0-0.2[facility] Comment on above:Performed By: #### [id number], [id number], [id number] #### [facility] [address], [place] [address]Qviakecnc/100 WBC (Bld)0.4 %Normal0.0-2.0FishUniversity of Maryland Rehabilitation & Orthopaedic InstituteComment on above:Performed By: #### [id number], [id number], [id number] #### [facility] [address], [place] [address]Waa Absolute0.0 E9/LNormal0.0-0.5FUniversity Hospitals Health System Comment on above:Performed By: #### [id number], [id number], [id number] #### [facility] [address] [place] [address]67[address]Jfkyntgqyvz/100 WBC (Bld)0.2 %Normal0.0-8.0[facility] HospitalComment on above:Performed By: #### [id number], [id number], [id number] #### [facility] [address] [place] [address] 86658Lladqzictcl distribution width (RBC) [Ratio]14.3 %High10.9-14.2 [facility] HospitalComment on above:Performed By: #### [id number], [id number], [id number] #### [facility] [address] [place] [address] 14463Xhlwmprvdu (Bld) [Volume fraction]40.0 %Hjhhku98.0-46.0[facility] HospitalComment on above:Performed By: #### [id number], [id number], [id number] #### [facility] [address] [place] [address] 26063Wvigjotcqj (Bld) [Mass/Vol]12.7 g/uFTrsuie79.0-16.0[facility] HospitalComment on above:Performed By: #### [id number], [id number], [id number] #### [facility] [address] [place] [address]Kokkn Absolute0.9 E9/LLow1.0-4.0[facility] Comment on above:Performed By: #### 3510216, 6431258, 15739572 #### [facility] [address] [place] [address] 56917Bmnfoydpnbf/100 WBC (Bld)25.2 %Pztzjb68.0-50.0St[facility]'S HospitalComment on above:Performed By: #### 4934986, 6774458, 99055833 #### [facility] [address], [place] [address]DMX (RBC) [Entitic mass]30.6 naEczpno09.0-34.0[facility]'S HospitalComment on above:Performed By: #### 4417505, 1767187, 71138175 #### [facility] [address] [place], [place] [address]HC (RBC) [Mass/Vol]31.7 g/kTLdqjhp71.4-36.0[facility]S HospitalComment on above:Performed By: #### 1299397, 3999076, 74692694 #### [facility] [address] [place], [place] [address]V (RBC) [Entitic vol]96.5 dOVvnbau56.0-100.0[facility]S HospitalComment on above:Performed By: #### 1318420, 1536619, 02856881 #### [facility] [address] [place] [address] 02289Lihl Absolute0.3 E9/LNormal0.2-1.0[facility] Comment on above:Performed By: #### 2431755, 3796416, 97020413 #### [facility] [address] [place] [address] 46317Qkmxilwag/100 WBC (Bld)7.3 %Normal4.0-14.0[facility]S HospitalComment on above:Performed By: #### 4608210, 0583196, 77746570 #### [facility] [address] [place] [address] 78451Thyyyh Absolute2.3 E9/LNormal2.0-7.5FUniversity Hospitals Health System Comment on above:Performed By: #### 9319005, 8670651, 76399567 #### [facility] [address] [place] [address] 48808Hirryj Auto66.9 %Zmfspe38.0-75.0[facility] Comment on above:Performed By: #### 4577846, 0033727, 93709886 #### [facility] [address], [place] [address]Yosxghjv221.0 E9/QUokwwi662.0-500.0[facility] Comment on above:Performed By: #### 9601015, 8213780, 01578509 #### [facility] [address] [place] [address] 18875Rbngquvs mean volume (Bld) [Entitic vol]7.4 fLNormal6.4-10.8 [facility]S HospitalComment on above:Performed By: #### 2307139, 1904421, 36743805 #### [facility] [address] [place] [address] 06517KAC6.1 E12/LLow4.3-5.9[facility]S HospitalComment on above:Performed By: #### 3981692, 8099067, 63495990 #### [facility] [address] [place] [address] 30787LVZ6.4 E9/LLow4.0-11.0[facility]S HospitalComment on above:Performed By: #### 9549063, 0684289, 80237862 #### [facility] [address] [place] [address] 13602SMSPUWTAXLwldskf By: SYSTEM SYSTEM on 87-90-4110YWIub/dLNormal <=1.9mg/dLRemisol ChemCRPon 42-60-6037STI [Mass/Vol]mg/LNormal<=1.9St. [facility]S HospitalComment on above:Performed By: #### 3707534, 7353106, 22183179 #### [facility] [address] [place] [address] 83712GC UPPER EXTREMITY W/O CONTRAST RIGHTon 26-93-8434Nfsmecyrv Study observation (narrative)[facility] CenterConsent for Treatmenton 09-06-2023 Consent for [id number]#1.00TIFFNormal St. [facility]'S HospitalHEMATOLOGYOrdered By: SYSTEM SYSTEM on 09-06-2023 Basophil Absolute0.0 E9/LNormal0.0 - 0.2 E9/LRemisol HemeBasophils/100 WBC (Bld) 0.4 %Normal0.0 - 2.0 %Remisol HemeEos Absolute0.0 E9/LNormal0.0 - 0.5 E9/L Remisol HemeEosinophils/100 WBC (Bld)0.2 %Normal0.0 - 8.0 %Remisol Heme Erythrocyte distribution width (RBC) [Ratio]14.3 %High10.9 - 14.2 %Remisol Heme Hematocrit (Bld) [Volume fraction]40.0 %Hceblw52.0 - 46.0 %Remisol Heme Hemoglobin (Bld) [Mass/Vol]12.7 g/pGZadytd13.0 - 16.0 gm/dLRemisol HemeLymph Absolute0.9 E9/LLow1.0 - 4.0 E9/LRemisol HemeLymphocytes/100 WBC (Bld)25.2 % Qtqmdp68.0 - 50.0 %Remisol HemeMCH (RBC) [Entitic mass]30.6 oeWouaob76.0 - 34.0 pgRemisol HemeMCHC (RBC) [Mass/Vol]31.7 g/oPStotmz86.4 - 36.0 gm/dLRemisol Heme MCV (RBC) [Entitic vol]96.5 tVGvguzz90.0 - 100.0 fLRemisol HemeMono Absolute0.3 E9/LNormal0.2 - 1.0 E9/LRemisol HemeMonocytes/100 WBC (Bld)7.3 %Normal4.0 - 14.0 %Remisol HemeNeutro Absolute2.3 E9/LNormal2.0 - 7.5 E9/LRemisol HemeNeutro Auto 66.9 %Gbgyfx96.0 - 75.0 %Remisol UrsvYhscqirn555.0 E9/DZbnkii652.0 - 500.0 E9/L Remisol HemePlatelet mean volume (Bld) [Entitic vol]7.4 fLNormal6.4 - 10.8 fL Remisol HemeRBC4.1 E12/LLow4.3 - 5.9 E12/LRemisol HemeWBC3.4 E9/LLow4.0 - 11.0 E9/LRemisol HemeHEMATOLOGYOrdered By: Petr Mack on 35-90-5020WHL (Bld) [Velocity]14 mm/hNormal0 - 34 mm/hrFT HemeAutoSSLab Miscellaneous-LCon 33-92-1546Jvbq Yvjv265187Dhlauwh Interpretation [facility] Comment on above:Performed By: #### [id number] ####[facility] [address] [place], [place]Haxn Nameinterleukin 6Invalid Interpretation [facility] CenterComment on above:Performed By: #### [id number] ####[facility] Xytuqplekm[address] Rodriguezcity hospitalolvinVIR[place], [place]U[address]Epabtinow Orderon 84-36-7783Dwjnublbz Order [id number]#1.00TIFLakeHealth Beachwood Medical CenterReference Laboratory TestingOrdered By: Jojo Gonsales on 98-46-3181Xadc Ilpb141955 1Invalid Interpretation [facility] SendOutsSSTest Nameinterleukin 6 Invalid Interpretation [facility] SendOutsSSSed Rate Automatedon 58-34-5624CRM (Bld) [Velocity]14 mm/hNormal0-34St[facility] HospitalComment on above: Performed By: #### 9850090, 9825181, 60421300 #### [facility] [address] [place], [place] [address]Ldtzsjzjx Orderon 83-62-4180Ophuozvnv Order [id number]#1.00Cleveland ClinicBasophils Auto (Bld) [#/Vol]on 02-84-6428Dtjctydfa (Bld) [#/Vol]0.0 10 3/uL0.0-0.1FSt. Mary's Medical Center, Ironton CampusBasophils/100 WBC Auto (Bld)on 53-94-7774Owlbynxoy/100 WBC (Bld)0.8 %0.2-2.0[facility] Cholesterol in LDL Calc [Mass/Vol]on 91-32-0788Gfjfeltloyg in LDL [Mass/Vol] 152.0 mg/dLUniversity Hospitals Geneva Medical CenterComment on above:<100 mg/dl XHQTQWV479-961 mg/dl NEAR OR ABOVE SWVFGRF280-311 mg/dl BORDERLINE RLGE149-446 mg/dl HIGH>190 mg/dl VERY HIGHCholesterol in VLDL Calc [Mass/Vol]on 08-30-2023 Cholesterol in VLDL [Mass/Vol]20.2 mg/dLUniversity Hospitals Geneva Medical Center Eosinophils/100 WBC Auto (Bld)on 95-10-4832Swoahcksnya/100 WBC (Bld)4.2 %0.9-7.0 [facility] CenterErythrocyte distribution width Auto (RBC) [Ratio]on 58-53-6108Mpojahnsnoo distribution width (RBC) [Ratio]13.4 %11.0-15.0 [facility] CenterEstimated glomerular filtration rate (GFR) non- Americanon 80-32-9941OQU/1.73 sq M.predicted among non-blacks MDRD (S/P/Bld) [Vol rate/Area]59 mL/min/{1.73_m2}>=60[facility] CenterGlobulin Calc (S) [Mass/Vol]on 91-78-3054Mizfmccj (S) [Mass/Vol]3.4 g/dL [facility] CenterHematocrit Auto (Bld) [Volume fraction]on 82-83-4536Mdkgmbjzam (Bld) [Volume fraction]39.5 %36.0-48.0[facility] Medical CenterHemoglobin [Mass/volume] in Bloodon 43-25-0860Otiogogmwk (Bld) [Mass/Vol]12.5 g/dL12.0-16.0[facility] CenterLaboratory - Chemistry and Chemistry - challengeon 71-18-0200Gvjfkcm [Mass/Vol]3.7 g/dL 3.4-5.0[facility] CenterALP [Catalytic activity/Vol]45 U/L46-116 [facility] CenterALT [Catalytic activity/Vol]23 U/L14-59 [facility] CenterAST [Catalytic activity/Vol]21 U/L15-37 [facility] CenterBilirubin [Mass/Vol]0.4 mg/dL0.2-1.0[facility] CenterCalcium [Mass/Vol]9.0 mg/dL8.5-10.1FSt. Mary's Medical Center, [facility]onton CampusChloride [Moles/Vol]106 mmol/Y88-261PdkhyddbyUniversity Hospitals Geneva Medical CenterCholesterol [Mass/Vol]246 mg/dL<=200[facility] Cholesterol in HDL [Mass/Vol]74 mg/yQ10-32CoemmpbwhUniversity Hospitals Geneva Medical Center Comment on above:> or =60 mg/dl - LOW CARDIOVASCULAR RISK<40 mg/dl - HIGH CARDIOVASCULAR RISKCO2 [Moles/Vol]25.5 mmol/L21.0-32.0[facility] CenterCreatinine [Mass/Vol]0.96 mg/dL0.55-1.02[facility] GFR/1.73 sq M.predicted MDRD (S/P/Bld) [Vol rate/Area]mL/min/{1.73_m2}>=60 [facility] CenterGlucose [Mass/Vol]86 mg/zN35-417AxmfncwssUniversity Hospitals Geneva Medical CenterPotassium [Moles/Vol]3.8 mmol/L3.5-5.1FSt. Mary's Medical Center, Iront[facility] CampusProtein [Mass/Vol]7.1 g/dL6.4-8.2FSt. [facility] Sodium [Moles/Vol]142 mmol/U141-826YwgbldrrxUniversity Hospitals Geneva Medical CenterTriglyceride [Mass/Vol]101 mg/dL<=150[facility] CenterTSH Qn1.531 m[IU]/L 0.358-3.740[facility] Medical CenterUrea nitrogen [Mass/Vol]20.0 mg/dL 7.0-18.0[facility] CenterUrea nitrogen/Creatinine [Mass ratio] 20.8 mg/mgUniversity Hospitals Geneva Medical CenterLaboratory - Hematology and Cell countson 46-95-0463LLR (Bld) [Velocity]16 mm/h<=30[facility] CenterImmature granulocytes/100 WBC (Bld)0.3 %0.0-0.5FSt. Mary's Medical Center, Ironton CampusLeukocytes [#/volume] corrected for nucleated erythrocytes in Blood by Automated counon 61-25-4322UOU corrected for nucl RBC Auto (Bld) [#/Vol]3.8 10 3/uL4.0-11.0[facility] Medical CenterLymphocytes Auto (Bld) [#/Vol]on 60-59-8981Whjpyvbhjrx (Bld) [#/Vol]1.7 10 3/uL1.2-3.8[facility] Medical CenterLymphocytes/100 WBC Auto (Bld)on 16-78-5247Zkwedpytbde/100 WBC (Bld)44.8 % 20.5-60.0[facility] HospitalH Auto (RBC) [Entitic mass]on 44-34-4615HON (RBC) [Entitic mass]31.1 pg26.7-34.0[facility] Medical CenterMCHC Auto (RBC) [Mass/Vol]on 71-31-9358TJHJ (RBC) [Mass/Vol]31.6 g/dL 29.9-35.2FSt. Mary's Medical Center, Ironton CampusMCV Auto (RBC) [Entitic vol]on 79-42-4099UWO (RBC) [Entitic vol]98.3 fL81.0-99.0[facility] CenterMonocytes Auto (Bld) [#/Vol]on 18-75-0499Hmlzpjrtf (Bld) [#/Vol]0.5 10 3/uL0.3-0.8[facility] CenterMonocytes/100 WBC Auto (Bld)on 84-45-0078Jjbobdzym/100 WBC (Bld)14.1 %1.7-12.0[facility] Neutrophils Auto (Bld) [#/Vol]on 91-21-7851Vpwtlzpmbdp (Bld) [#/Vol]1.4 10 3/uL 1.4-6.5FSt. Mary's Medical Center, Iront[place] CampusNeutrophils/100 WBC Auto (Bld)on 53-07-5740Gjzahdmlyne/100 WBC (Bld)35.8 %43.0-75.0[facility] CenterNo Panel Informationon 06-14-5276Zcufooipjpr # (Auto)0.2 10 3/uL0.0-0.7 [facility] CenterImmature Granulocyte # (Auto)0.01 10 3/uL 0.00-0.03[facility] Medical CenterPlatelet mean volume Auto (Bld) [Entitic vol]on 26-44-9205Alkxbjdy mean volume (Bld) [Entitic vol]9.1 fL9.5-13.5 [facility] CenterPlatelets Auto (Bld) [#/Vol]on 08-30-2023 Platelets (Bld) [#/Vol]181 10 3/zR591-199BslrkqurbUniversity Hospitals Geneva Medical CenterRBC Auto (Bld) [#/Vol]on 14-71-5097LYQ (Bld) [#/Vol]4.02 10 6/uL4.20-5.40[facility] Southerum or plasma albumin/globulin mass ratioon 08-30-2023 Albumin/Globulin [Mass ratio]1.1 {ratio}[facility] Southerum or plasma anion gap determinationon 13-73-0854Pypzo gap [Moles/Vol]14.3 mmol/L [facility] Southerum or plasma total cholesterol/high density lipoprotein (HDL) cholesterol mass albina 43-74-0521Gaobeckfver.total/Cholesterol in HDL [Mass ratio]3.3 {ratio}[facility] CenterComment on above:3.3 - 4.4 LOW RISK4.4 - 7.1 AVERAGE RISK7.1 - 11.0 MODERATE RISK>11.0 HIGH RISKXR Shoulder - right 2 Viewson 45-55-1464Vxykotc Result: Two views of the right shoulder; Grashey and axillary were taken today in the office are reviewed, and saved to the permanent medical record. The prosthesis is unchanged in position and alignment. There is no prosthetic loosening or failure. No scapular notching. The scapular spine appears to be intact. No obvious fractures at the coracoid process.[facility] CityXR Shoulder - right 2 Viewson 40-49-5835Blhieykfp Study observation (narrative)[facility] HOSPITALNatalie HealthcareIntraOperative Documentson 89-56-4927SzancHzooqpucr [id number]#1.00CD:127NormalSt. Anthony'S HospitalAuto Diffon 85-90-1763Rspsvsqur/100 WBC (Bld)0.2 %Normal0.0-2.0 [facility] HospitalComment on above:Order Comment: Order Added by Discern Expert.Performed By: #### 9322404, 8425018, 0895675, 3406147, 08032939, 7872828 #### [facility] [address] [place] [address] 35057Ddmfigipf/Leukocytes Auto (Bld) [Pure # fraction]0.0 E9/LNormal 0.0-0.2[facility] Trauma CenterComment on above:Order Comment: Order Added by Discern Expert.Performed By: #### 9810115, 2482062, 6864076, 4507810, 97443267, 8783211 #### [facility] [address], [place] [address]Lhpchtxejho/100 WBC (Bld)0.0 %Normal0.0-8.0[facility]'S HospitalComment on above:Order Comment: Order Added by Discern Expert.Performed By: #### 2224241, 4292511, 7837688, 9428208, 05591018, 4173550 #### [facility] [address], [place] [address]Xdgvcvoooet/Leukocytes Auto (Bld) [Pure # fraction]0.0 E9/L Normal0.0-0.5[facility] Shock Trauma CenterComment on above:Order Comment: Order Added by Discern Expert.Performed By: #### 4002720, 5354086, 5622538, 2246987, 82565639, 6402759 #### [facility] [address], [place] [address]Bxpxlpmdxfn/100 WBC (Bld)7.9 %Low14.0-50.0[facility]'S HospitalComment on above:Order Comment: Order Added by Discern Expert.Performed By: #### 5518524, 1820023, 6861228, 7958071, 81977684, 9319962 #### [facility] [address] [place] [address]59[address]Vesjsriaocc/Leukocytes Auto (Bld) [Pure # fraction]0.8 E9/LLow 1.0-4.0[facility]'S HospitalComment on above:Order Comment: Order Added by Discern Expert.Performed By: #### 5875023, 7239269, 5967740, 6751374, 39971022, 3488215 #### [facility] [address] [place] [address] 98046Hogmqqclq/100 WBC (Bld)14.0 %Normal4.0-14.0[facility]S HospitalComment on above:Order Comment: Order Added by Discern Expert.Performed By: #### 4540042, 5728075, 9108766, 2613915, 97510009, 0396456 #### [facility] [address] [place] [address] 443[address]Xtxoydlkg/Leukocytes Auto (Bld) [Pure # fraction]1.3 E9/LHigh 0.2-1.0[facility]S HospitalComment on above:Order Comment: Order Added by Discern Expert.Performed By: #### 7332648, 5379904, 0270787, 2117912, 96894537, 9861030 #### [facility] [address] [place] [address] 38676Ygnaewtxxrj/100 WBC (Bld)77.9 %High36.0-75.0[facility]'S HospitalComment on above:Order Comment: Order Added by Discern Expert. Performed By: #### 2391675, 8024948, 4254935, 3875548, 16030136, 9086313 #### [facility] [address] [place] [address] 22996Bwboizmpspf/Leukocytes Auto (Bld) [Pure # fraction]7.5 E9/L Normal2.0-7.5FUniversity Hospitals Health SystemComment on above:Order Comment: Order Added by Discern Expert.Performed By: #### 3009180, 5225287, 3052357, 4040361, 87654804, 1857131 #### [facility] [address], [place] [address]BVOsz 05-32-3051Llrb nitrogen [Mass/Vol]20 mg/dLNormal5-21 [facility]S HospitalComment on above:Performed By: #### 9669706, 1607472, 0782957, 7866869, 86499004, 7461343 #### [facility] [address], [place] [address]AEZ w/ Auto Diffon 66-68-2769Zbpvdcmknum distribution width (RBC) [Ratio]14.6 %High10.9-14.2FUniversity Hospitals Health SystemComment on above: Performed By: #### 8753698, 1926114, 2047371, 2979787, 51405715, 8086402 #### [facility] [address], [place] [address]Uszvmddquc (Bld) [Volume fraction]29.7 %Low34.0-46.0St[facility]'S HospitalComment on above:Performed By: #### 6387523, 1950657, 0735641, 1524064, 01017032, 1825125 #### [facility] [address], [place] [address]Gythaarxpd (Bld) [Mass/Vol]10.0 g/dLLow12.0-16.0St[facility]'S HospitalComment on above:Performed By: #### 9551365, 5968227, 6480396, 7418674, 92367973, 7425422 #### [facility] [address], [place] [address]DXI (RBC) [Entitic mass]32.5 xmPuljtd50.0-34.0St[facility]'S HospitalComment on above:Performed By: #### 3995434, 9556532, 6389553, 5993101, 87145116, 4110779 #### [facility] [address], [place] [address]QSTY (RBC) [Mass/Vol]33.6 g/aGDeqjsg69.4-36.0[facility]'S HospitalComment on above:Performed By: #### 0068352, 9621844, 7267544, 4228050, 46610239, 7349918 #### [facility] [address], [place] [address]KQB (RBC) [Entitic vol]96.7 pOMzstzu00.0-100.0[facility]'S HospitalComment on above:Performed By: #### 8336023, 1075702, 4649866, 1786496, 42306576, 2239720 #### [facility] [address] [place] [address]Vjszgsxm mean volume (Bld) [Entitic vol]7.1 fLNormal6.4-10.8 [facility]S HospitalComment on above:Performed By: #### 7066448, 0309059, 7408305, 7838399, 88747679, 8019177 #### [facility] [address] [place] [address]Sybxlmcot (Bld) [#/Vol]215.0 E9/IAwnfpl614.0-500.0St[facility]'S HospitalComment on above:Performed By: #### 3549680, 9612325, 2288369, 3754372, 60194206, 2622853 #### [facility] [address], [place] [address]SOD (Bld) [#/Vol]3.1 E12/LLow4.3-5.9[facility] Comment on above:Performed By: #### 6314003, 7168030, 4945343, 8079884, 44977223, 9229424 #### [facility] [address] [place] [address]XJH corrected for nucl RBC Auto (Bld) [#/Vol]9.6 E9/LNormal 4.0-11.0[facility]S HospitalComment on above:Performed By: #### 9086599, 5622339, 3430373, 6638338, 81233476, 6814589 #### [facility] Laboratory [facility] [address] [place], [place] [address]HPJUQPGNGQexbnhx By: SYSTEM SYSTEM on 92-22-8476Kfkok gap [Moles/Vol]6 mmol/LNormal6 - 16 mEq/LFTMC RemisolChloride [Moles/Vol]118 mmol/L Igik170 - 111 mmol/LFTMC RemisolCO2 [Moles/Vol]23 mmol/XXllxmm80 - 31 mmol/LFTMC RemisolCreatinine [Mass/Vol]0.9 mg/dLNormal0.5 - 1.3 mg/dLWW [facility]ST[facility] RemisolGFR/1.73 sq M.predicted among non-blacks MDRD (S/P/Bld) [Vol rate/Area]72 mL/min/1.73 m2 Normal>=59mL/min/1.73 m2WW [facility] Chem SComment on above:Interpretive Data: Chronic kidney disease could be indicated at eGFR's of less than 60 mL/min/1.73m2. Kidney failure is indicated at less than 15 mL/min/1.73m2.Potassium [Moles/Vol] 4.0 mmol/LNormal3.5 - 5.3 mmol/LFTMC RemisolSodium [Moles/Vol]143 mmol/LNormal 135 - 145 mmol/LFTMC RemisolUrea nitrogen [Mass/Vol]20 mg/dLNormal5 - 21 mg/dL [facility] RemisolConsent for Anesthesiaon 11-86-2712Byzuqzp for Anesthesia [id number]#1.00CD:127NormalSt. Anthony'S HospitalCreatinineon 79-39-6925Szvfeapjuy [Mass/Vol]0.9 mg/dLNormal0.5-1.3[facility] Trauma CenterComment on above:Performed By: #### 5262922, 0665811, 5919671, 7577185, 81891939, 9274852 ####[facility] X[address] Rodriguezcity hospitalolvinV[place], [place] [address]Pvzfymkog Instructionson 04-07-2023 Discharge [id number]#1.00CD:127Normal [facility] Tra[facility] CenterDischarge Note-Nursingon 69-13-0435Bguepuemt Note-Nursing RADHA ZAIDI :1960 Visit Date:04/06/2023 Inpatient [...] Jordan Yuan When: Where: [address] [place] [address]- Business (1) Follow Up with JOHN ASHBY When: In 0 days Where: [address] [place] [address]- Business (1) Medications What How Much When Instructions Next Dose Changed acetaminophen-oxycodone (Percocet 5 mg-325 mg oral tablet) See instructions 1-2 tab(s) Nnlpz9co Pickup at [facility]/pharmacy #[id number] Next dose due after 10am Unchanged buPROPion (Wellbutrin XL 300 mg/ 24 hours Tab-ER) 1 Tablets By Mouth 2 times a day 04/07/23 @ 9pm Unchanged celecoxib (CeleBREX 100 mg Cap) 1 Capsules By Mouth 2 times a day as needed for for pain Pickup at [facility]/pharmacy #[id number] 04/07/23 @ 9pm Unchanged cephalexin (Keflex 500 mg Cap) 1 Capsules By Mouth Every 8 hours Duration: 7 Days Pickup at [facility]/pharmacy #[id number] 04/07/23 @ 2pm and bedtime Unchanged docusate (Colace 100 mg Cap) 1 Capsules By Mouth 2 times a day as needed for for constipation Pickup at [facility]/pharmacy #[id number] 04/07/23 @ 9pm Unchanged [...] Every day 04/08/23 @ 9am Pharmacy Information [facility]/pharmacy #[id number]: [address], [place] [id number] [phone] Test Results CBC BMP WBC: 9.6 E9/L [...] Screw, Non-Locking, 4.5 x 28 mm, Shoulder Ujyiedl6404/06/2023 [employer] Modular Glenoid System, peripheral Screw, Non-Locking, 4.5 x 32 mm Shoulder Implant 04/06/2023 [employer] Modular Glenoid System, Peripheral Screw, Non-Locking, 5.5 x 20 mm, Shoulder Implant(2), 04/06/2023 [employer] Modular Glenoid System, Glenosphere, 36 +4 Lateralized/ 24, Shoulder Implant 04/06/2023 [employer] Perham humeral Stem Size 9, Shoulder Implant 04/06/2023 [employer] SutureCap, 36 neutral, shoulder Implant 04/06/2023 [employer] Humeral Insert, small, 36, +6, Shoulder (more content not included)...NormalSt. Anthony'S HospitalHEMATOLOGYOrdered By: SYSTEM SYSTEM on 62-63-9570Jkwspjctp/100 WBC (Bld)0.2 %Normal0.0 - 2.0 %[facility] HemeAutoSS [...] E9/L [facility] HemeAutoSSHEMATOLOGYOrdered By: Lizet Hall on 64-71-4578Pbstxaqeskh distribution width (RBC) [Ratio]14.6 %High10.9 - 14.2 %[facility] HemeAutoSSHematocrit (Bld) [Volume fraction]29.7 %Low34.0 - 46.0 %[facility] HemeAutoSSHemoglobin (Bld) [Mass/Vol]10.0 g/dLLow12.0 - 16.0 gm/dLFTMC HemeAutoSSMCH (RBC) [Entitic mass] 32.5 eeOptlqi43.0 - 34.0 pgFTMC HemeAutoSSMCHC (RBC) [Mass/Vol]33.6 g/dLNormal 31.4 - 36.0 gm/dLWW [facility] HemeAutoSSMCV (RBC) [Entitic vol]96.7 hKNreshl83.0 - 100.0 fLWW [facility] HemeAutoSSPlatelet mean volume (Bld) [Entitic vol]7.1 fLNormal6.4 - 10.8 fLWW [facility] HemeAutoSSPlatelets (Bld) [#/Vol]215.0 E9/PCjwuwv420.0 - 500.0 E9/[facility] HemeAutoSSRBC (Bld) [#/Vol]3.1 E12/LLow4.3 - 5.9 E12/[facility] [place] HemeAutoSSWBC corrected for nucl RBC Auto (Bld) [#/Vol]9.6 E9/LNormal4.0 - 11.0 E9/[facility] HemeAutoSSInpatient Clinical Summaryon [id number] Clinical Summary [place] [id number] Clinical Summary Person Information: Name: RADHA ZAIDI Age: 62 Years : 1960 Sex: Female PCP: JOHN ASHBY DO Marital Status: Phone: [phone] Race: White Ethnicity: Non- or Language: Uzbek Visit Id: Visit Reason: OA RIGHT SHOULDER Speciality: Acuity: Enc Type: Observation Med Service: Medical Arrival: 04/06/2023 06:09:55 Discharge: Dispo Type: Address: [address] [place] [address] [address] [place] [id number] Provider Notes: Patient: RADHA ZAIDI Age: 62 [...] Follow up: With: Address: When: Jordan Yuan [address] [place] [id number] Business (1) 04/19/2023 2:15 PM With: Address: When: JOHN ASHBY [address] [place] [address] Business (1) Patient Education Information: Iris Yuan - Shoulder Replacement (Custom)[facility] Inpatient Patient Summaryon [id number] Patient Summary [address] [address] Patient Discharge Instructions PERSON INFORMATION [...] Follow up: With: Address: When: Jordan Yuan [address] [place] [address] [id number] Business (1) 04/19/2023 2:15 PM With: Address: When: JOHN ASHBY [address] [place], [place] [id number] Business (1) In the event that this [...] to Continue Taking That Have Changed [id number], [address], [place] [id number], [phone] START: acetaminophen-oxycodone (Percocet 5 mg-325 mg oral tablet) 1-2 tab(s) Oral q4hr. Refills: 0. Last Dose: Next Dose: STOP: acetaminophen-oxycodone (Percocet 5 mg-325 mg oral tablet) 1 Tablets By Mouth 3 times a day. Medications to Continue with No Changes [facility]/pharmacy #[id number], [address], [place] [id number], [phone] celecoxib (CeleBREX 100 mg Cap) 1 Capsules [...] Tablets By Mouth every day. Pharmacy Information: [facility] Tabitha (419) (more content not included)...Normal [facility]. [facility]'S HospitalIntraOperative Documentson 08-22-6576RoxpcVtpqxejas [id number]#1.00CD:127The [facility] HospitalIntraOperative Documents [id number]#1.00CD:[address] [place], [place] [address]Lyteson 68-35-6395Yukuh gap [Moles/Vol]6 mmol/LNormal6-16St. [facility]'S HospitalComment on above:Performed By: #### 8140623, 5264391, 2381234, 8196912, 20278011, 3635319 ####[facility] [address] [place], [place] [address]Nroufkyk [Moles/Vol]118 mmol/LSpdq310-898IasfjuSt. Anthony'S HospitalComment on above:Performed By: #### 9647009, 6518433, 6030251, 6185425, 57208889, 0517511 ####[facility] [address] [place], [place] [address]TQ0 [Moles/Vol]23 mmol/HWlzmwj22-88 [facility]'S HospitalComment on above:Performed By: #### 9713387, 7684487, 7232389, 1281136, 60792265, 9522651 ####[facility] [address] [place], [place] [address]Eyykmhchj [Moles/Vol]4.0 mmol/LNormal 3.5-5.3FUniversity Hospitals Health SystemComment on above:Performed By: #### 1968063, 6347018, 9708155, 3574492, 48869520, 3605335 ####[facility] [address] [place] [address]Ebytiq [Moles/Vol]143 mmol/LNormal 135-145Fisher [facility] Shock Trauma CenterComment on above:Performed By: #### 0751480, 4796063, 5586487, 9976994, 86721276, 3704251 ####[facility] [address] [place], [place] [address]Vvoa OR Intraoperative Recordon 42-40-2828Ijxv OR Intraoperative RecordIntraOp Document Type FT Summary Primary Physician: Jordan Yuan DO Finalized Date/Time: 04/07/23 14:30:58 Pt. Name: ZAIDIRADHA/Sex: 1960 Female Med Rec #: [id number] Physician: Jordan Yuan DO Financial #: [id number] Pt. Type: A Room/Bed: [place] [address] Admit/Disch: 04/06/23 06:09:55 - 04/07/23 09:30:00 Institution: [...] 0836. Patient transported via cart back to [place] [address] and placed on LH60esyhtho by ESTRELLITA De La Fuente. ESTRELLITA Remy 04/07/23 Chart opened to review and send charges LRoth CSFA Case Attendance FT Entry 1 Entry 2 Entry 3 Case Attendee Idris VICTORIA, Adiel Yuan DO, Jordan Goldman RN, Dennis Curry Role Performed ROBOTICS SPECIALIST Surgeon - Primary Editor Greeting Card - Primary Time In 04/06/23 09:32:00 04/06/23 10:05:00 04/06/23 09:32:00 Time Out 04/06/23 11:36:00 04/06/23 11:16:00 04/06/23 11:36:00 Procedure SHOULDER TOTAL SHOULDER TOTAL SHOULDER TOTAL ARTHROPLASTY(Right) ARTHROPLASTY(Right) ARTHROPLASTY(Right) Comments , anesthesia boom supervisor Last Modified By: Wanda GLASS CLEANING MACHINE TENDER, Sharmaine Goldman RN, Dennis Goldman RN, Dennis Curry 04/07/23 14:28:51 04/06/23 11:35:47 04/06/23 11:35:47 Entry 4 Entry 5 Entry 6 Case Attendee Valerie GLASS CLEANING MACHINE TENDER, Jena Taylor CST, John Role Performed Scrub - Primary Scrub - Primary GLASS CLEANING MACHINE TENDER/SA Time In 04/06/23 09:32:00 04/06/23 09:32:00 04/06/23 [...] Yuan DO, Krupp RN, Dennis Curry, Valerie GLASS CLEANING MACHINE TENDER, Johnathan Hernandez Sydney A, Wilhelm CST, Alfredo [...] initiates traffic control (more content not included)...NormalFisher [facility]ibley Medical CenterMain OR PACU I Recordon 78-72-4666Lhmn OR PACU I RecordPACU Phase I Document Type FT Summary Primary Physician: Jordan Yuan DO Finalized Date/Time: 04/07/23 08:05:19 Pt. Name: RADHA ZAIDI /Sex: 1960 Female Med Rec #: [id number] Physician: Jordan Yuan DO Financial #: [id number] Pt. Type: O Room/Bed: [facility] Admit/Disch: 04/06/23 06:09:55 - Institution: Case [...] RN 04/07/23 08:04 Cate Gonsales RN 04/07/23 08:05The Jewish HospitalPatient Education - Text 29-64-6239Qvgrlsu Education - [place], [place] [facility] DISCHARGE INSTRUCTIONS: SHOULDER REPLACEMENT [...] persistent vomiting. Jordan Yuan DO [facility] [address] [place] [address] Reviewed: NoClinton Memorial HospitalPreoperative Documentson 37-50-6081Cangpsubybpq Documents [id number]#1.00CD:127The Jewish HospitalProgress Note-Physicianon 59-29-4932Rfwydsjy Note-PhysicianPatient: RADHA ZAIDI Age: 62 years Sex: [...] Diastolic Blood Pressure 63 mmHg SpO2 94 %NormalSt. Anthony'S HospitalComment on above:Result Comment: Electronically Signed By: Jordan Yuan DO\.br\Date and Time Signed: 04/07/23 07:40 EDTeGFRon 69-64-0981AUD/1.73 sq M.predicted among non-blacks MDRD (S/P/Bld) [Vol rate/Area]72 mL/min/1.73 f9Suwuqd>=59[facility] Comment on above:Order Comment: Order added by Discern Expert.Result Comment: Chronic kidney disease could be indicated at eGFR's of less than 60 mL/min/1.73m2. Kidney failure is indicated at less than 15 mL/min/1.73m2. Performed By: #### 9504161, 0289664, 7482749, 5918132, 45593898, 2616820 ####[place] [address] [place] [address] ABO/Rhon 22-33-2067SEO/RhPositiveInvalid Interpretation [facility] CenterComment on above:Performed By: #### 77767340, 66895946, 04904800, 2486525 ####[address] [address] ABO/Rh History Checkon 84-82-4619WQB/Rh History CheckVerified Hx Blood Type The Jewish HospitalComment on above:Performed By: #### 52950250, 94502510, 29879936, 7957053 ####[address] [address]UENFkm 18-64-0038BVZX Gel InterpNegativeNormal St. Anthony'S HospitalComment on above:Performed By: #### 34196043, 63857974, 59657008, 3525080 ####[address] [place], [place] [address]CVUZT BANKOrdered By: Deyanira Nunez on 04-06-2023 ABO/Rh InterpPositiveInvalid Interpretation [facility] BB SubsectionABSC Gel InterpNegative (04/06/23 7:23 AM)[facility] BB SubsectionBlood Bank ID#on [id number]#[id number] Invalid Interpretation [facility] Medical CenterComment on above:Performed By: #### 63746380, 17896069, 83984386, 2644735 ####[facility] [address] [place], [place] [address]Lgaiqzd for Treatmenton 04-06-2023 Consent for [id number]#1.00CD:127Notessie [facility] Trauma CenterH&P Updateon 04-06-2023H&P Update [id number]#1.00CD:127AlyssaSt. Anthony'S HospitalInsurance Correspondence Officeon 18-08-1544Hqagtkjed Correspondence [id number]#1.00CD:127NotessieSt. Anthony'S HospitalMain OR Preoperative Recordon 68-35-2124Zkdd OR Preoperative RecordPreOp Document Type FT Summary Primary Physician: Jordan Yuan DO Finalized Date/Time: 04/06/23 09:32:24 Pt. Name: ZAIDIRADHA/Sex: 1960 Female Med Rec #: [id number] Physician: Jordan Yuan DO Financial #: [id number] Pt. Type: A Room/Bed: [facility] Admit/Disch: 04/06/23 06:09:55 - Institution: [...] Signatures Signed By: Dennis Goldman RN 04/06/23 09:32NotessieSt. Anthony'S HospitalMonitor Record on 65-70-1160Eijyaoz [id number]#1.00CD:127 AlyssaSt. Anthony'S HospitalMonitor Record [id number]#1.00CD:127NotessieSt. Anthony'S HospitalMonitor [id number]#1.00CD:127Normal [facility] Trauma CenterOperative Reporton 95-07-1578Cvsxygvhb ReportPatient: RADHA ZAIDI Age: 62 years Sex: Female : 1960 Associated Diagnoses: None Author: Jordan Yuan DO DATE OF SURGERY: 04/06/2023 SURGEON: Jordan Yuan D.O. SHORTAGE WORKER: Anival Flores CFA PREOPERATIVE DIAGNOSIS: Massive [...] 3. size +6 humeral insert 4. Revers Perham size 9 stem with 36 (neutral) Suturecup OPERATIVE INDICATIONS: Radha is a 62-year-old uzqnl-berv-ryfqamww female who has had persistent right shoulder [...] deficiency. The depth-stop (more content not included)...Normal St. Anthony'S HospitalComment on above:Result Comment: Electronically Signed By: [...] Using maximal sterile barrier technique per current [facility] guidelines including hand hygeine, Guidance (Ultrasound used [...] The patient tolerated the procedure as expected.Normal St. Anthony'S HospitalComment on above:Result Comment: Electronically Signed By: Yanick Rai DO\.br\Date and Time Signed: 04/06/23 08:44 EDT Progress Note-Physicianon 33-38-4955Wqozleni Note-PhysicianPatient: RADHA ZAIDI Age: 62 years Sex: Female : 1960 Associated Diagnoses: None Author: Yanick Rai DO Postoperative Information Postoperative disposition: Postoperative disposition: To PACU. Optimetrix number: Optimetrix number [id number]. Anesthetic utilized: General. Regional: Interscalene Block. 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 Family History: Primary malignant neoplasm of prostate Father Acute myocardial infarction Mother Procedure history: Cervical laminectomy (8017424411). Amputation of finger (331693026). Removal of lung, Partial (86518). Open reduction and internal fixation of fracture Leg (644346604). Foot surgery (1887859553). Lumbar discectomy (983922034). Social History Social & Psychosocial Habits Alcohol [...] clear to auscultation. (more content not included)... The Jewish HospitalComment on above:Result Comment: Electronically Signed By: Yanick Rai DO.zari\Date and Time Signed: 04/06/23 08:05 EDT XR Shoulder Complete Righton 41-28-9247ZX Shoulder Complete RightExam Date/Time: 04/06/2023 11:58 EDT [...] Ka,r in mGy = na DAP = naNormalSt. Anthony'S HospitalConsent for Procedure/Surgeryon 65-66-2564Xmtpccq for Procedure/Surgery [id number]#1.00CD:127The Jewish HospitalCT Upper Extremity w/o Contrast Righton 36-55-6232UH Upper Extremity w/o Contrast RightExam Date/Time: 03/24/2023 [...] Gigi Suazo DO Transcribed by: DANISHA Technologist: [facility] Memorial HospitalABO/Rh Retypeon 87-33-6767IBH/Rh Retype InterpPositiveInvalid Interpretation [facility] CenterComment on above:Performed By: #### [id number] ####[facility] [address] [place], [place] [address]RDHQW BANK Ordered By: Deyanira Longoria on 48-87-4662NES/Rh Retype InterpPositiveInvalid Interpretation [facility] BB SubsectionBUNon 83-22-1709Aaad nitrogen [Mass/Vol]28 mg/dLHigh5-21St. Anthony'S HospitalComment on above:Performed By: #### 68541212, 7274515, 2780081, 2323124, 6741328, 3882802 ####[facility] [address] [place], [place] [address]WEJ w/Indiceson 03-24-2023 Erythrocyte distribution width (RBC) [Ratio]14.5 %High10.9-14.2FUniversity Hospitals Health SystemComment on above:Performed By: #### 99558763, 5162319, 5757804, 9341801, 6277434, 9264653 ####[facility] [address] [place], [place] [address]Sbadgihbzp (Bld) [Volume fraction]35.9 %Xccgig91.0-46.0 [facility]'S HospitalComment on above:Performed By: #### 21159246, 1472078, 8878314, 9303729, 3353055, 4918308 ####[facility] [address] [place], [place] [address]Dkwbdtlyjv (Bld) [Mass/Vol]11.9 g/dL Low12.0-16.0St. [facility]'S HospitalComment on above:Performed By: #### 08826766, 1670169, 4834127, 8771720, 3744673, 3450298 ####[facility] [address] [place], [place] [address]ULX (RBC) [Entitic mass]32.3 tyXuasos56.0-34.0St. [facility]'S HospitalComment on above:Performed By: #### 12442031, 8367166, 6306036, 7679902, 1265883, 5327315 ####[facility] [address] [place], [place] [address]MAXL (RBC) [Mass/Vol]33.1 g/dL Hxnigi76.4-36.0St. [facility]'S HospitalComment on above:Performed By: #### 11368569, 7222915, 7697326, 2037154, 6943947, 5090660 ####[address] [address]RIS (RBC) [Entitic vol]97.4 fL Gbzvuv27.0-100.0St. Anthony'S HospitalComment on above:Performed By: #### 20600539, 0994433, 8801861, 6858689, 0190229, 2084539 ####[address] [address]Iikaupda mean volume (Bld) [Entitic vol]7.4 fLNormal6.4-10.8St. Anthony'S HospitalComment on above: Performed By: #### 38623276, 6115240, 1245767, 8165037, 2034645, 1090062 ####[address] [address] Platelets (Bld) [#/Vol]207.0 E9/QWrlfpj457.0-500.0[facility] Comment on above:Performed By: #### 38875066, 3736549, 6697995, 3114476, 5934533, 5690992 ####[address] [address]YTM (Bld) [#/Vol]3.7 E12/LLow4.3-5.9St. [facility]'S HospitalComment on above:Performed By: #### 55225798, 0909386, 8480009, 1899976, 4865077, 0921520 ####[address] [address]UIY corrected for nucl RBC Auto (Bld) [#/Vol]3.5 E9/LLow 4.0-11.0St. [facility]'S HospitalComment on above:Performed By: #### 42114329, 7237735, 8308262, 8390997, 5652365, 7421306 ####[facility] [address] [place], [place] [address]LRPFDRWGWNkmtkhj By: SYSTEM SYSTEM on 00-50-9634Sqlkt gap [Moles/Vol]12 mmol/LNormal6 - 16 mEq/LFTMC RemisolChloride [Moles/Vol]111 mmol/TWdommp901 - 111 mmol/LFTMC RemisolCO2 [Moles/Vol]20 mmol/L Low21 - 31 mmol/LFTMC RemisolCreatinine [Mass/Vol]1.2 mg/dLNormal0.5 - 1.3 mg/dL [facility] RemisolGFR/1.73 sq M.predicted among non-blacks MDRD (S/P/Bld) [Vol rate/Area]51 mL/min/1.73 m2Low>=59mL/min/1.73 m2WW [facility] Chem SGlucose [Mass/Vol]84 mg/kHZpibph28 - 199 mg/dLWW [facility] RemisolPotassium [Moles/Vol]4.2 mmol/LNormal3.5 - 5.3 mmol/LFTMC RemisolSodium [Moles/Vol]139 mmol/VBxtost371 - 145 mmol/LFTMC RemisolUrea nitrogen [Mass/Vol]28 mg/dLHigh5 - 21 mg/dLWW [facility] RemisolConsent for Treatmenton 09-77-0108Macpngr for Treatment [id number]#1.00CD:127NormalSt. Anthony'S HospitalCreatinineon 18-75-3944Mpbyrbngmj [Mass/Vol]1.2 mg/dLNormal0.5-1.3Fisher [facility] Trauma CenterComment on above:Performed By: #### 75377744, 9130644, 5336871, 9899655, 4230519, 5398934 ####[facility] [address] [place], [place] [address]Zenjlpduj 60-47-5018Kevpfqr [Mass/Vol]84 mg/dL Ovvmnx28-004UnmadnSt. Anthony'S HospitalComment on above:Performed By: #### 22146517, 8977742, 7377111, 2883935, 1779354, 9333131 ####[facility] [address] [place], [place] [address]OUZSAJNALDEljkpce By: Deyanira Longoria on 47-42-5409Ymfotrqknej distribution width (RBC) [Ratio]14.5 %High10.9 - 14.2 %[facility] HemeAutoSSHematocrit (Bld) [Volume fraction]35.9 %Rbekgj00.0 - 46.0 %[facility] HemeAutoSSHemoglobin (Bld) [Mass/Vol]11.9 g/dLLow12.0 - 16.0 gm/dL [facility] HemeAutoSSMCH (RBC) [Entitic mass]32.3 wqTqqtzz35.0 - 34.0 pgFTMC HemeAutoSSMCHC (RBC) [Mass/Vol]33.1 g/fGMimegx40.4 - 36.0 gm/dLFTMC HemeAutoSS MCV (RBC) [Entitic vol]97.4 uFTcdvgc28.0 - 100.0 fLFTMC HemeAutoSSPlatelet mean volume (Bld) [Entitic vol]7.4 fLNormal6.4 - 10.8 fLFTMC HemeAutoSSPlatelets (Bld) [#/Vol]207.0 E9/TTuvsov128.0 - 500.0 E9/LFTMC HemeAutoSSRBC (Bld) [#/Vol] 3.7 E12/LLow4.3 - 5.9 E12/LFTMC HemeAutoSSWBC corrected for nucl RBC Auto (Bld) [#/Vol]3.5 E9/LLow4.0 - 11.0 E9/LFTMC HemeAutoSSLyteson 58-36-9668Zbmig gap [Moles/Vol]12 mmol/LNormal6-16St. [facility]'S HospitalComment on above: Performed By: #### 35618753, 8986730, 3672008, 2411302, 8390915, 9580075 ####[facility] [address] [place] [address] Chloride [Moles/Vol]111 mmol/HMfgnib994-973Ewqmnn Zen Medical CenterComment on above:Performed By: #### 59419713, 7059549, 4754491, 3135510, 5869913, 3162357 ####[facility] [address] [place], [place] [address]SQ3 [Moles/Vol]20 mmol/YIkv20-07NzglftSt. Anthony'S HospitalComment on above: Performed By: #### 50275192, 7430520, 3965914, 9278842, 3310936, 6126324 ####[facility] [address] [place] [address] Potassium [Moles/Vol]4.2 mmol/LNormal3.5-5.3Fisher [facility] Shock Trauma CenterComment on above:Performed By: #### 34546381, 8976003, 4236262, 4955959, 6828935, 0068392 ####[address] [address]Worppn [Moles/Vol]139 mmol/AIyzwef384-069XkympwSt. Anthony'S HospitalComment on above:Performed By: #### 17741634, 1857166, 1419005, 6347425, 1520827, 4810764 ####[address] [place], [place] [address]ZE With Cult Reflexon 18-02-3693Nuyaudver Ql (U)NegativeNormalNegative St. Anthony'S HospitalComment on above:Performed By: #### 36789313 #### [facility] [address] [place], [place] [address]Nlnswnk (U)CLEARNormalClearSt. Anthony'S HospitalComment on above:Performed By: #### 99161578 #### [facility] [address] [place], [place] [address]Ewtpo (U)YELLOWNormalYellowSt. Anthony'S HospitalComment on above:Performed By: #### 09440415 #### [facility] [address] [place], [place] [address]Gnufpupssr cells.squamous LM.HPF (Urine sed) [#/Area]0-2Normal 0-2FUniversity Hospitals Health SystemComment on above:Performed By: #### 67085583 #### [facility] [address] [place], [place] [address]Lwvq Granular Casts LM Ql (Urine sed)0-3NormalSt. Anthony'S HospitalComment on above:Performed By: #### 56788447 #### [facility] [address] [place], [place] [address]Yahlahs Test strip (U) [Mass/Vol]NegativeNormalNegativeSt. Anthony'S HospitalComment on above:Performed By: #### 09444789 #### [facility] [address] [place] [address]Brgwfjkxql Ql (U)NegativeNoalNegCleveland Clinic Fairview HospitalComment on above:Performed By: #### 19711846 #### [facility] [address] [place] [address]Mghuxst (U) [Mass/Vol]NegativeNormalNegCleveland Clinic Fairview HospitalComment on above:Performed By: #### 97622336 #### [facility] [address] [place] [address]Dehyrwe.plasma/Wakeeney.RBC (Bld) [Mass ratio]3-9Ciiwid3-4KoezlwUniversity Hospitals Health SystemComment on above:Performed By: #### 29260290 #### [facility] [address] [place] [address]Nwexp Ql (Urine sed)TRACENoClinton Memorial Hospital Comment on above:Performed By: #### 23369188 #### [facility] [address] [place] [address]Mpfnhmg Ql (U)[facility] Comment on above:Performed By: #### 31273385 #### [facility] [address] [place] [address]wN (U)6.0 [pH]Invalid Interpretation Code5.0-9.0St. Anthony'S HospitalComment on above:Performed By: #### 17843267 #### [facility] [address] [place], [place] [address]Vbrmggr (U) [Mass/Vol]NegativeNormalNegativeSt. Anthony'S HospitalComment on above:Performed By: #### 80138244 #### [facility] Laboratory [address] [place] [address]Onaozagq gravity (U) [Rel density]>=1.030Invalid Interpretation Code1.005-1.030St. Anthony'S HospitalComment on above:Performed By: #### 49691843 #### [facility] Laboratory [address] [place] [address]Piuk of Urine collection methodClean CatchNormalSt. Anthony'S HospitalComment on above:Performed By: #### 43052708 #### [facility] Laboratory [address] [place] [address]Lhggjvqzqjit Qn (U)0.2 {Rajwinder'U}/dLNormal0.0-1.0St. [facility]'S HospitalComment on above:Performed By: #### 48131371 #### [facility] Laboratory [address] [place] [address]OES Auto Ql (U)NegativeNormalNegativeSt. Anthony'S HospitalComment on above:Performed By: #### 00341789 #### [facility] Laboratory [address] [place] [address]OFB LM.HPF (Urine sed) [#/Area]9-4Dtzhkl9-2Vsuyal R [facility] Shock Trauma CenterComment on above:Performed By: #### 21678599 #### [facility] Laboratory [address] [place] [address]EDBLITQPAUIjspdug By: Indira Case on 75-32-2034Korqmhrmj Ql (U) Negative (03/24/23 3:05 PM)NormalNegativeWW [facility] UA Auto SSClarity (U)Clear (03/24/23 3:05 PM)NormalClearFMERCY HOS[facility] UA Auto SSColor (U)Yellow (03/24/23 3:05 PM)NormalYellowWW [facility] UA Auto SSEpithelial cells.squamous LM.HPF (Urine sed) [#/Area]0-2 /HPFNormal0-2/HPFWW [facility] UA Auto SSFine Granular Casts LM Ql (Urine sed)0-3 (03/24/23 3:05 PM)NormalWW [facility] UA Auto SSGlucose Test strip (U) [Mass/Vol]Negative (03/24/23 3:05 PM)NormalNegativeWW [facility] UA Auto SSHemoglobin Ql (U)Negative (03/24/23 3:05 PM)NormalNegativeWW [facility] UA Auto SSKetones (U) [Mass/Vol]Negative (03/24/23 3:05 PM)NormalNegativeWW [facility] UA Auto SSLithium.plasma/Wakeeney.RBC (Bld) [Mass ratio]0-3 /HPFNormal0-3/HPFWW [facility] UA Auto SSMucus Ql (Urine sed)Trace (03/24/23 3:05 PM)NormalWW [facility] UA Auto SSNitrite Ql (U)Negative (03/24/23 3:05 PM)NormalNegativeWW [facility] UA Auto SSpH (U)6.0 *NA* (03/24/23 3:05 PM)Invalid Interpretation Code5.0 - 9.0WW [facility] UA Auto SSProtein (U) [Mass/Vol]Negative (03/24/23 3:05 PM)NormalNegativeWW [facility] UA Auto SSSpecific gravity (U) [Rel density] >=1.030 *NA* (03/24/23 3:05 PM)Invalid Interpretation Code1.005 - 1.030WW [facility] UA Auto SSUA Spec DescClean Catch (03/24/23 3:05 PM)NormalWW [facility] UA Auto SSUrobilinogen Qn (U)0.6782605 {Rajwinder'U}/dLNormal0.0 - 1.0 EU/dLWW [facility] UA Auto SSWBC Auto Ql (U)Negative (03/24/23 3:05 PM)NormalNegativeWW [facility] UA Auto SSWBC LM.HPF (Urine sed) [#/Area]0-5 /HPFNormal0-5/HPFWW [facility] UA Auto SSXR Chest 2 Viewson 60-42-7775UP Chest 2 Views Exam Date/Time: 03/24/2023 15:21 [...] Karony in mGy = na DAP = naNorAdena Health SystemeGFRon 58-86-5265WZH/1.73 sq M.predicted among non-blacks MDRD (S/P/Bld) [Vol rate/Area]51 mL/min/1.73 m2Low >=[address] [place], [place] [address]Comment on above:Order Comment: Order added by Discern Expert.Result Comment: Chronic kidney disease could be indicated at eGFR's of less than 60 mL/min/1.73m2. Kidney failure is indicated at less than 15 mL/min/1.73m2.Performed By: #### 30290515, 8779042, 9652172, 3677127, 6198868, 8344653 ####[facility] [address] [place], [place] [address]Gopvxildo Orderon [id number] Order [id number]:127NoClinton Memorial HospitalXR SHOULDER RT 2V or >on [id number] SHOULDER RT 2V or >EXAM: XR SHOULDER [...] Electronically authenticated by: VANDANA YUAN Date: 2022-10-07 22:08NoL[facility] AUTO DIFFon 69-13-1952TKLL #0.0 103/ulNormal0.0-0.1Wood County HospitalComment on above:Performed By: #### CBC ####[facility] [address] [place] [address]Dr.Andrade ChangBasophils/100 WBC (Bld)0.5 %Normal0.2-2.0[facility] on above:Performed By: #### CBC ####[facility] [address] [place], [place] [address]Dr.Kellenlan ChangEO #0.1 103/ulNormal0.0-0.7[facility] HospitalComhenry [facility] on above:Performed By: #### CBC ####[facility] [id number] [address] [place], [place] [address]Dr.Andrade ChangEosinophils/100 WBC (Bld)2.3 %Normal 0.9-7.0The [facility] HospitalComment on above:Performed By: #### CBC ####[facility] [address] [address]Dr.Andrade Alvarado Erythrocyte distribution width (RBC) [Ratio]13.7 %Ratvst85.0-15.0The [facility] on above:Performed By: #### CBC ####[facility] Kohrixsemj[address] [place], [place] [address]Dr.Andrade AlvaradoHematocrit (Bld) [Volume fraction]32.8 %Critically low36.0-48.0The [facility] HospitalComment on above:Performed By: #### CBC ####[facility] [address]ks[address] [address]Dr.Andrade ChangHemoglobin (Bld) [Mass/Vol]10.9 g/dL Critically low12.0-16.0The [facility] HospitalComment on above:Performed By: #### CBC ####[facility] Bmcerttzyd[address] [place], [place] [address]Dr. Kellenlan ChangIG #0.02 10e3/ulNormal0.00-0.03The [facility] HospitalComment on above: Performed By: #### CBC ####[facility] Mjeqavcgje[address] [place], [place] [address]Dr.Kellengregory ChangIG %0.5 %Normal0.0-0.5The [facility] HospitalComment on above:Performed By: #### CBC ####[facility] Csmgekcdll38[address] [place], [place] [address]Dr.Andrade ChangLYMPH #1.6 103/ulNormal1.2-3.8The [facility] HospitalComment on above:Performed By: #### CBC ####[facility] Mylocvgjgn[address] [place], [place] [address]Dr. Kellengregory AlvaradoLymphocytes/100 WBC (Bld)41.8 %Fbwkfb67.5-60.0[facility] Comment on above:Performed By: #### CBC ####[facility] Ratvrhpnjl[address] [place], [place] [address]Dr.Kellengregory ChristianoMANUAL DIFF REQNONormalThe [facility] HospitalComment on above:Performed By: #### CBC ####[facility] Iumbecusay[address] [place], [place] [address]Dr.Andrade AlvaradoH (RBC) [Entitic mass]31.9 qpMompba99.7-34.0The [facility] HospitalComment on above: Performed By: #### CBC ####[facility] Cnhnektabx3[address] [place], [place] [address]Dr.Andrade AlvaradoWEILL CORNELL [facility] (RBC) [Mass/Vol]33.2 g/dLNormal 29.9-35.2The [facility] HospitalComment on above:Performed By: #### CBC ####[facility] Qorarcfenx[address] [place] [address]Dr. Andrade ChristianoMCV (RBC) [Entitic vol]95.9 tZRhlllh52.0-99.0[facility] Comment on above:Performed By: #### CBC ####[facility] Hrallhnjbw40[address] [place], [place] [address]Dr.Andrade AlvaradoMONO #0.5 103/ulNormal0.3-0.8 The [facility] HospitalComment on above:Performed By: #### CBC ####[facility] Ifkbjtphnp5387[address] [place], [place] [address]Dr.Andrade Alvarado Monocytes/100 WBC (Bld)13.1 %Critically high1.7-12.0The [facility] HospitalComment on above:Performed By: #### CBC ####[facility] Hxmiwyzjsw37[address] [place], [place] [address]Dr.Andrade AlvaradoNEUT #1.6 103/ulNormal1.4-6.5The [facility] HospitalComment on above:Performed By: #### CBC ####[facility] Irldbzivqx9606[address] [place], [place] [address]Dr.Kellengregory AlvaradoNeutrophils/100 WBC (Bld)41.8 %Critically low43.0-75.0The [facility] HospitalComment on above: Performed By: #### CBC ####[facility] Wfezjwxghn[address] [place], [place] [address]Dr.Kellengregory AlvaradoPlatelet mean volume (Bld) [Entitic vol] 8.8 fLCritically low9.5-13.5The [facility] HospitalComment on above:Performed By: #### CBC ####[facility] Rzscpszonc34[address] [place], [place] [address]Dr.Andrade TyamtJDY383 103/rcUnfnum375-375Nrq [facility] HospitalComment on above:Performed By: #### CBC ####[facility] Zzdxwagcqs9867[address] [place], [place] [address]Dr.Andrade AlvaradoRBC3.42 106/ulCritically low4.20-5.40The [facility] HospitalComment on above:Performed By: #### CBC ####[facility] [address]gcsyvwr[address] [place] [address]Dr.Yilan AlvaradoWBC3.9 103/ul Critically low4.0-11.0The [facility] HospitalComment on above:Performed By: #### CBC ####[facility] Nykgyhimnp[address] [address]Dr. Andrade AlvaradoFERRITINon 96-07-7977Nmyirwzy [Mass/Vol]292.0 ng/mLCritically high 8.0-252.0The [facility] HospitalComment on above:Performed By: #### FERR, B12FOL, FETIBC #### [facility] [address] [address] [address] Andrade Chavez AND TIBCon 09-16-2022% WGRUSQCNYS63.2 %NormalThe [facility] HospitalComment on above:Performed By: #### FERR, B12FOL, FETIBC #### [facility] [address] [address] [address] Andrade Chavez [Mass/Vol]259.0 ug/dLCritically high50.0-170.0The [facility] HospitalComment on above:Performed By: #### FERR, B12FOL, FETIBC #### [facility] [address] [address] [address] Andrade Sandhu CMKTTB147.0 ug/kRRyaqto466.0-450.0[facility] Comment on above:Performed By: #### FERR, B12FOL, FETIBC #### [facility] [address] [address] [address] Andrade David 14(COMP METB)on 70-33-0020Itnlzqm [Mass/Vol]4.0 g/dLNormal 3.4-5.0The [facility] HospitalComment on above:Performed By: #### CMP ####[facility] Qczupxhend7058[address] [place], [place] [address]Dr.Yilan Alvarado Albumin/Globulin [Mass ratio]1.3 {ratio}NormalThe [facility] HospitalComment on above:Performed By: #### CMP ####[facility] Hhynticrqq8849[address] [place], [place] [address]Dr.Andrade AlvaradoALP [Catalytic activity/Vol]47 U/LNormal 46-116The [facility] HospitalComment on above:Performed By: #### CMP ####[facility] Vnyhbiyumu5367[address] [place], [place] [address]Dr.Andrade ChangALT [Catalytic activity/Vol]23 U/JErrpxn34-49Qbx [facility] HospitalComment on above: Performed By: #### CMP ####[facility] Qwozgwlvrm839[address] [place], [place] [address]Dr.Andrade AlvaradoAnion gap [Moles/Vol]12.1 mmol/LNormal The [facility] HospitalComment on above:Performed By: #### CMP ####[facility] Qdnrytichy6376[address] [place], [place] [address]Dr.Andrade ChangAST [Catalytic activity/Vol]23 U/AZzllmn42-77Wmo [facility] HospitalComment on above: Performed By: #### CMP ####[facility] Zzmpdezwbt900[address] [place], [place] [address]Dr.Andrade AlvaradoBilirubin [Mass/Vol]0.4 mg/dLNormal 0.2-1.0The [facility] HospitalComment on above:Performed By: #### CMP ####[facility] Exghffwghv1494[address] [place], [place] [address]Dr.Andrade Alvarado Calcium [Mass/Vol]9.3 mg/dLNormal8.5-10.1The [facility] HospitalComment on above: Performed By: #### CMP ####[facility] Tgvmtezhan9999[address] [place], [place] [address]Dr.Andrade ChangChloride [Moles/Vol]108 mmol/LCritically gxbl71-219Vip [facility] HospitalComment on above:Performed By: #### CMP ####[facility] Urthvhzruv946[address] [place], [place] [address]Dr. Yigregory ChangCO2 [Moles/Vol]26.9 mmol/DMrbiob37.0-32.0The [facility] HospitalComment on above:Performed By: #### CMP ####[facility] Yauzphqfli2264[address] [place], [place] [address]Dr.Yilan ChangCreatinine [Mass/Vol]0.87 mg/dLNormal 0.55-1.02The [facility] HospitalComment on above:Performed By: #### CMP ####[facility] Lgcsbsjtsg6008[address] [place], [place] [address]Dr. Yilan ChangEGFR-AF IVORIAN>60Normal>=60The [facility] HospitalComment on above: Performed By: #### CMP ####[facility] Bwbtvgyuib4438[address] [place], [place] [address]Dr.Yilan ChangEGFR-NON AF IVORIAN>60Normal>=60The [facility] HospitalComment on above:Performed By: #### CMP ####[facility] Apxpgeasqv7360[address] [place], [place] [address]Dr.Yilan ChangGlobulin (S) [Mass/Vol]3.0 g/dLNormalThe [facility] HospitalComment on above:Performed By: #### CMP ####[facility] Kthmomsjoc5746[address] [place], [place] [address]Dr.Yilan ChangGlucose [Mass/Vol]102 mg/gTMeteiy59-913Kcf [facility] Comment on above:Performed By: #### CMP ####[facility] Fzfccsjrvq8280[address] [place], [place] [address]Dr.Yilan ChangPotassium [Moles/Vol]4.0 mmol/LNormal3.5-5.1The [facility] HospitalComment on above:Performed By: #### CMP ####[facility] Woxqrngmox65[address] [place], [place] [address]Dr. Yilan ChangProtein [Mass/Vol]7.0 g/dLNormal6.4-8.2The [facility] HospitalComment on above:Performed By: #### CMP ####[facility] Zvtpeolpkz937[address] [place], [place] [address]Dr.Yilan ChangSodium [Moles/Vol]143 mmol/LNormal 136-145The [facility] HospitalComment on above:Performed By: #### CMP ####[facility] [address] [place] [address]Dr.Kellengregory ChangUrea nitrogen [Mass/Vol]25.0 mg/dLCritically high7.0-18.0The [facility] HospitalComment on above:Performed By: #### CMP ####[facility] [address]xs[address] [address]Dr.Kellengregory ChangUrea nitrogen/Creatinine [Mass ratio] 28.7 mg/mgNormalThe [facility] HospitalComment on above:Performed By: #### CMP ####[facility] [address]wsjuxr[address] [address]Dr. Andrade AlavradoSED RATE WESTERGRENon 73-33-5627YEE RATE11 mm/hrNormal<=30The [facility] HospitalComment on above:Performed By: #### SEDR ####[facility] Julrqjwrvj3036[address] [place], [place] [address]Dr. Andrade AlvaradoVIT B12 AND FOLATEon 73-64-2062Lxomwnjfh (Vitamin B12) [Mass/Vol]249.0 pg/mLNormal 193.0-986.0The [facility] HospitalComment on above:Performed By: #### FERR, B12FOL, FETIBC #### [facility] [address] [address] [address] Andrade AlvaradoFOLATE14.00 ng/mLNormal8.60-58.90The [facility] HospitalComment on above:Performed By: #### FERR, B12FOL, FETIBC #### [facility] [address] [address] [address] Andrade AlvaradoMG MAMM SCREEN 3D BRENNA CADon [id number] MAMM SCREEN 3D BRENNA CAD Patient: RADHA ZAIDI Exam Date: 2022 : 1960 Gender:F Ordering : DR JOHN ASHBY D.O. Admission #: [id number] Family : Order #: [id number] CLICK HERE TO VIEW EXAM RADIOLOGY REPORT [...] prostate cancer at age 72. LOCATION: [facility] BREAST COMPOSITION: Scattered areas fibroglandular density. [...] by: Julian Teixeira M.D. on 06/09/2022 at 15:30NoL[facility] AUTO DIFFon [id number] #0.0 103/ulNormal0.0-0.1[facility] HospitalComment on above:Performed By: #### CBC ####[facility] Qjywsticrp2647[address] [place], [place] [address]Dr.Andrade ChangBasophils/100 WBC (Bld)1.0 %Normal0.2-2.0[facility] HospitalComment on above:Performed By: #### CBC ####[facility] Ignxmanfut7697[address] [place], [place] [address]Dr.Kellenlan ChangEO #0.1 103/ulNormal0.0-0.7ThLutheran HospitalComment on above:Performed By: #### CBC ####[facility] Zfmxtxdren9579[address] [place], [place] [address]Dr.Andrade ChangEosinophils/100 WBC (Bld)2.5 %Normal 0.9-7.0The [facility] HospitalComment on above:Performed By: #### CBC ####[facility] Otbjioqyey3656[address] [place], [place] [address]Dr.Yilan Alvarado Erythrocyte distribution width (RBC) [Ratio]13.0 %Fngvui19.0-15.0The [facility] HospitalComment on above:Performed By: #### CBC ####[facility] [address]oy[address] [place] [address]Dr.Andrade AlvaradoHematocrit (Bld) [Volume fraction]34.9 %Critically low36.0-48.0The [facility] HospitalComment on above:Performed By: #### CBC ####[facility] Rdthyxtwrp1401[address] [place], [place] [address]Dr.Andrade AlvaradoHemoglobin (Bld) [Mass/Vol]11.6 g/dL Critically low12.0-16.0The [facility] HospitalComment on above:Performed By: #### CBC ####[facility] Okmkfmunza4974[address] [place], [place] [address]Dr. Andrade ChangIG #0.02 10e3/ulNormal0.00-0.03The [facility] HospitalComment on above: Performed By: #### CBC ####[facility] Lxqlybqglz[address] [place], [place] [address]Dr.Andrade ChangIG %0.5 %Normal0.0-0.5The [facility] HospitalComment on above:Performed By: #### CBC ####[facility] Croacijckb2566[address] [place], [place] [address]Dr.Andrade AlvaradoLYMPH #1.9 103/ulNormal1.2-3.8The [facility] HospitalComment on above:Performed By: #### CBC ####[facility] Vqqrzipwls[address] [place], [place] [address]Dr. Andrade AlvaradoLymphocytes/100 WBC (Bld)46.1 %Obbgdi91.5-60.0The [facility] Comment on above:Performed By: #### CBC ####[facility] Esiqbbbyny1779[address] [place], [place] [address]Dr.Andrade AlvaradoMANUAL DIFF REQNONormalThe [facility] HospitalComment on above:Performed By: #### CBC ####[facility] Qndyqfdvug8622[address] [place], [place] [address]Dr.Andrade ChristianoH (RBC) [Entitic mass]32.3 coXpfuwx73.7-34.0The [facility] HospitalComment on above: Performed By: #### CBC ####[facility] [address]akc[address] [place] [address]Dr.Andrade AlvaradoHC (RBC) [Mass/Vol]33.2 g/dLNormal 29.9-35.2The [facility] HospitalComment on above:Performed By: #### CBC ####[facility] Ptowdnazsr2695[address] [place], [place] [address]Dr. Kellengregory AlvaradoV (RBC) [Entitic vol]97.2 oLQvvpep92.0-99.0The [facility] Comment on above:Performed By: #### CBC ####[facility] Bclhqmkvbc0660[address] [place], [place] [address]Dr.Andrade AlvaradoMONO #0.5 103/ulNormal0.3-0.8 The [facility] HospitalComment on above:Performed By: #### CBC ####[facility] Cahinwufpm0890[address] [place], [place] [address]Dr.Andrade Alvarado Monocytes/100 WBC (Bld)13.5 %Critically high1.7-12.0The [facility] HospitalComment on above:Performed By: #### CBC ####[facility] Eitzskhzgb6744[address] [place], [place] [address]Dr.Andrade AlvaradoNEUT #1.5 103/ulNormal1.4-6.5The [facility] HospitalComment on above:Performed By: #### CBC ####[facility] Texyrxaxph7418[address] [place], [place] [address]Dr.Andrade AlvaradoNeutrophils/100 WBC (Bld)36.4 %Critically low43.0-75.0The [facility] HospitalComment on above: Performed By: #### CBC ####[facility] Fywqtcaqkc10[address] [place], [place] [address]Dr.Andrade AlvaradoPlatelet mean volume (Bld) [Entitic vol] 8.9 fLCritically low9.5-13.5The [facility] HospitalComment on above:Performed By: #### CBC ####[facility] [address]az[address] [address]Dr.Andrade AlvaradoPLT237 103/jxBkmqwk955-941Boc [facility] HospitalComment on above:Performed By: #### CBC ####[facility] Nnmhhurzqj[address] [address]Dr.Andrade AlvaradoRBC3.59 106/ulCritically low4.20-5.40The [facility] HospitalComment on above:Performed By: #### CBC ####[facility] O[address]mxuwboh[address] [place] [address]Dr.Andrade AlvaradoWBC4.0 103/ul Normal4.0-11.0The [facility] HospitalComment on above:Performed By: #### CBC ####[facility] Wyznoppmmu[address] [address]DrMehreen PedroPon 62-19-7745HOB [Mass/Vol]mg/LNormal<=1.0The [facility] Comment on above:Performed By: #### CMP, CRP, TSH ####[facility] Ogbqlbykkn[address]84[address] [place], [place] [address]DrMehreen AlvaradoPROF 14(COMP METB)on 16-46-6188Yajszzr [Mass/Vol]4.2 g/dLNormal3.4-5.0The [facility] Comment on above:Performed By: #### CMP, CRP, TSH #### [facility] [address] [place] [address] Dr. Andrade AlvaradoAlbumin/Globulin [Mass ratio]1.3 {ratio}NormalThe [facility] HospitalComment on above:Performed By: #### CMP, CRP, TSH #### [facility] [address] [place] [address] Dr. Andrade Bermudez [Catalytic activity/Vol]50 U/YBeewsd18-600Qsk [facility] HospitalComment on above:Performed By: #### CMP, CRP, TSH #### [facility] [address] [place] [address] Dr. Yilan ChangALT [Catalytic activity/Vol]23 U/UNkrbwg57-00Zgd [facility] HospitalComment on above:Performed By: #### CMP, CRP, TSH #### [facility] [address] [place] [address] Dr. Andrade AlvaradoAnion gap [Moles/Vol]11.3 mmol/LNormalWood County Hospital Comment on above:Performed By: #### CMP, CRP, TSH #### [facility] [address] [place] [address] Dr. Andrade AlvaradoAST [Catalytic activity/Vol]23 U/LHgnekk70-67Xnf [facility] HospitalComment on above:Performed By: #### CMP, CRP, TSH #### [facility] [address] [place] [address] Dr. Andrade AlvaradoBilirubin [Mass/Vol]0.5 mg/dLNormal0.2-1.0[facility] Comment on above:Performed By: #### CMP, CRP, TSH #### [facility] [address] [place] [address] Dr. Andrade AlvaradoCalcium [Mass/Vol]9.3 mg/dLNormal8.5-10.1[facility] Comment on above:Performed By: #### CMP, CRP, TSH #### [facility] [address] [place] [address] Dr. Andrade AlvaradoChloride [Moles/Vol]104 mmol/DSfjrbh30-253JeaWood County Hospital Comment on above:Performed By: #### CMP, CRP, TSH #### [facility] [address] [place] [address] Dr. Andrade AlvaradoCO2 [Moles/Vol]27.2 mmol/FVaqvir03.0-32.0The [facility] Comment on above:Performed By: #### CMP, CRP, TSH #### [facility] [address] [place] [address] Dr. Andrade AlvaradoCreatinine [Mass/Vol]0.99 mg/dLNormal0.55-1.02The [facility] HospitalComment on above:Performed By: #### CMP, CRP, TSH #### [facility] [address] [address] [address] Andrade MartinezGFR-AF IVORIAN>60Normal>=60The [facility] HospitalComment on above:Performed By: #### CMP, CRP, TSH #### [facility] [address] [address] [address] Andrade MartinezGFR-NON AF EWHTDNIB12 mL/min/1.56j2Ricslsfyjg low>=60The [facility] HospitalComment on above:Performed By: #### CMP, CRP, TSH #### [facility] [address] [address] [address] Andrade AlvaradoGlobulin (S) [Mass/Vol]3.3 g/dLNormalThe [facility] HospitalComment on above:Performed By: #### CMP, CRP, TSH #### [facility] [address] [address] [address] Andrade AlvaradoGlucose [Mass/Vol]97 mg/sBLwgkbz37-861TjuWood County Hospital Comment on above:Performed By: #### CMP, CRP, TSH #### [facility] [address] [address] [address] Andrade AlvaradoPotassium [Moles/Vol]3.5 mmol/LNormal3.5-5.1The [facility] Comment on above:Performed By: #### CMP, CRP, TSH #### [facility] [address] [address] [address] Andrade AlvaradoProtein [Mass/Vol]7.5 g/dLNormal6.4-8.2The [facility] Comment on above:Performed By: #### CMP, CRP, TSH #### [facility] [address] [address] [address] Andrade AlvaradoSodium [Moles/Vol]139 mmol/VZaaoru096-566Gkj [facility] Comment on above:Performed By: #### CMP, CRP, TSH #### [facility] [address] [address] [address] Andrade AlvaradoUrea nitrogen [Mass/Vol]22.0 mg/dLCritically high7.0-18.0The [facility] on above:Performed By: #### CMP, CRP, TSH #### [facility] [address] [address] [address] Andrade AlvaradoUrea nitrogen/Creatinine [Mass ratio]22.2 mg/mgNormalThe [facility] HospitalComhenry for[facility] on above:Performed By: #### CMP, CRP, TSH #### [facility] [address] [address] [address] Andrade Ellsworth RATE WESTERGRENon 19-57-7443HCL RATE22 mm/hrNormal<=30[facility] on above:Performed By: #### SEDR ####[facility] Xgtagqfsdo[address] [place], [place] [address]DrMehreen AlvaradoTSHon 13-67-9046YPK1.373 uIU/mLNormal0.358-3.740The [facility] on above: Performed By: #### CMP, CRP, TSH #### [facility] [address] [address] [address] Andrade Vieira AUTO DIFFon [id number] #0.0 103/ulNormal0.0-0.1[facility] on above:Performed By: #### CBC ####[facility] Jtanjlmhub[address] [place], [place] [address]Dr.Andrade ChangBasophils/100 WBC (Bld)0.9 %Normal0.2-2.0The [facility] [facility] on above:Performed By: #### CBC ####[facility] [address] [place], [place] [address]Dr.Kellenlan ChangEO #0.1 103/ulNormal0.0-0.7The [facility] on above:Performed By: #### CBC ####[facility] Dmmjcgefst[address] [place], [place] [address]Dr.Andrade ChangEosinophils/100 WBC (Bld)2.3 %Normal 0.9-7.0The [facility] on above:Performed By: #### CBC ####[facility] [address] [address]Dr.Andrade Alvarado Erythrocyte distribution width (RBC) [Ratio]12.6 %Imcymz58.0-15.0The [facility] HospitalComment on above:Performed By: #### CBC ####[facility] Qskcicouah[address] [place], [place] [address]Dr.Andrade AlvaradoHematocrit (Bld) [Volume fraction]37.8 %Srggnu19.0-48.0The [facility] HospitalComment on above:Performed By: #### CBC ####[facility] Jzlgzihupt[address] [place], [place] [address]Dr.Andrade AlvaradoHemoglobin (Bld) [Mass/Vol]12.3 g/dL Zydkaq67.0-16.0The [facility] HospitalComment on above:Performed By: #### CBC ####[facility] Rzpuiikowb[address] [place], [place] [address]Dr. Kellengregory AlvaradoIG #0.02 10e3/ulNormal0.00-0.03The [facility] HospitalComment on above: Performed By: #### CBC ####[facility] Heyyszebwt[address] [place], [place] [address]Dr.Kellengregory AlvaradoIG %0.5 %Normal0.0-0.5The [facility] HospitalComment on above:Performed By: #### CBC ####[facility] Xvfireoejv[address] [place], [place] [address]Dr.Andrade ChristianoLYMPH #2.1 103/ulNormal1.2-3.8The [facility] HospitalComment on above:Performed By: #### CBC ####[facility] Vglqlndafy[address] [place], [place] [address]Dr. Andrade ChristianoLymphocytes/100 WBC (Bld)48.3 %Guoxdf06.5-60.0The [facility] Comment on above:Performed By: #### CBC ####[facility] Fhxnhvzzhm[address] [place], [place] [address]Dr.Andrade AlvaradoMANUAL DIFF REQNONormalThe [facility] HospitalComment on above:Performed By: #### CBC ####[facility] [address] [address]Dr.Andrade ChristianoH (RBC) [Entitic mass]31.9 gpJujyyl56.7-34.0The [facility] HospitalComment on above: Performed By: #### CBC ####[facility] [address] [address]Dr.Andrade AlvaradoHC (RBC) [Mass/Vol]32.5 g/dLNormal 29.9-35.2The [facility] HospitalComment on above:Performed By: #### CBC ####[facility] Sz[address]str[address] [address]Dr. Andrade AlvaradoV (RBC) [Entitic vol]97.9 pLCfjnya67.0-99.0The [facility] Comment on above:Performed By: #### CBC ####[facility] Fjcashwqyz[address] [place], [place] [address]Dr.Andrade AlvaradoMONO #0.5 103/ulNormal0.3-0.8 The [facility] HospitalComment on above:Performed By: #### CBC ####[facility] Kswlxzajxt[address] [place], [place] [address]Dr.Kellengregory Alvarado Monocytes/100 WBC (Bld)11.2 %Normal1.7-12.0The [facility] HospitalComment on above:Performed By: #### CBC ####[facility] Asntvwioox[address] [place], [place] [address]Dr.Andrade AlvaradoNEUT #1.6 103/ulNormal1.4-6.5The [facility] HospitalComment on above:Performed By: #### CBC ####[facility] Ojlxthnxac[address] [place], [place] [address]Dr.Andrade AlvaradoNeutrophils/100 WBC (Bld)36.8 %Critically low43.0-75.0The [facility] HospitalComment on above: Performed By: #### CBC ####[facility] Mcjqfpzljy[address] [place], [place] [address]Dr.Kellengregory AlvaradoPlatelet mean volume (Bld) [Entitic vol] 9.9 fLNormal9.5-13.5The [facility] HospitalComment on above:Performed By: #### CBC ####[facility] [address] [address]DrMehreen AlvaradoPLT213 103/eqPmzjhh234-004Vcq [facility] HospitalComment on above: Performed By: #### CBC ####[facility] [address] [address]Dr.Andrade AlvaradoRBC3.86 106/ulCritically low4.20-5.40The [facility] HospitalComment on above:Performed By: #### CBC ####[facility] Sbqdbembbf[address] [place], [place] [address]DrNito AlvaradoWBC4.4 103/ul Normal4.0-11.0The [facility] HospitalComment on above:Performed By: #### CBC ####[facility] Hvdiuqqvbf[address] [place], [place] [address]DrMehreen AlvaradoPROF 14(COMP METB)on 79-82-7142Fyupquc [Mass/Vol]4.2 g/dLNormal 3.4-5.0The [facility] HospitalComment on above:Performed By: #### CMP #### [facility] [address] [place] [address] Dr. Andrade AlvaradoAlbumin/Globulin [Mass ratio]1.3 {ratio}NormalThe [facility] HospitalComhenry [facility] on above:Performed By: #### CMP #### [facility] [address] [place] [address] Dr. Andrade Bermudez [Catalytic activity/Vol]61 U/DAomgvo65-922Qli [facility] HospitalComment on above:Performed By: #### CMP #### [facility] [address] [place] [address] Dr. Andrade Lujan [Catalytic activity/Vol]23 U/AWfdbbv22-05Feg [facility] HospitalComment on above:Performed By: #### CMP #### [facility] [address] [place] [address] Dr. Andrade Nunez gap [Moles/Vol]15.5 mmol/LNormalWood [facility] Hospital Comment on above:Performed By: #### CMP #### [facility] [address] [address] [address] Andrade AlvaradoAST [Catalytic activity/Vol]20 U/RObihyi48-51Oeu [facility] HospitalComment on above:Performed By: #### CMP #### [facility] [address] [address] [address] Andrade AlvaradoBilirubin [Mass/Vol]0.5 mg/dLNormal0.2-1.0[facility] Comment on above:Performed By: #### CMP #### [facility] [address] [address] [address] Andrade AlvaradoCalcium [Mass/Vol]9.1 mg/dLNormal8.5-10.1[facility] Comment on above:Performed By: #### CMP #### [facility] [address] [address] [address] Andrade AlvaradoChloride [Moles/Vol]106 mmol/FIfghvo92-487Ldp [facility] Comment on above:Performed By: #### CMP #### [facility] [address] [place] [address] Dr. Andrade AlvaradoCO2 [Moles/Vol]25.6 mmol/XIiejpb71.0-32.0[facility] Comment on above:Performed By: #### CMP #### [facility] [address] [address] [address] Andrade AlvaradoCreatinine [Mass/Vol]0.97 mg/dLNormal0.55-1.02The [facility] HospitalComment on above:Performed By: #### CMP #### [facility] [address] [address] [address] Zafar ChangEGFR-AF IVORIAN>60Normal>=60The [facility] HospitalComment on above:Performed By: #### CMP #### [facility] [address] [address] [address] Andrade MartinezGFR-NON AF YXDELJOA07 mL/min/1.71h1Qkasxqcmei low>=60The [facility] HospitalComment on above:Performed By: #### CMP #### [facility] [address] [address] [address] Andrade AlvaradoGlobulin (S) [Mass/Vol]3.2 g/dLNormAccess Hospital DaytonComment on above:Performed By: #### CMP #### [facility] [address] [address] [address] Andrade AlvaradoGlucose [Mass/Vol]91 mg/qLYeyfps47-272Olg [facility] Comment on above:Performed By: #### CMP #### [facility] [address] [address] [address] Andrade AlvaradoPotassium [Moles/Vol]4.1 mmol/LNormal3.5-5.1The [facility] Comment on above:Performed By: #### CMP #### [facility] [address] [address] [address] Andrade AlvaradoProtein [Mass/Vol]7.4 g/dLNormal6.4-8.2[facility] Comment on above:Performed By: #### CMP #### [facility] [address] [address] [address] Andrade AlvaradoSodium [Moles/Vol]143 mmol/GVloihp259-803PxeWood County Hospital Comment on above:Performed By: #### CMP #### [facility] [address] [address] [address] Andrade AlvaradoUrea nitrogen [Mass/Vol]18.0 mg/dLNormal7.0-18.0The [facility] HospitalComment on above:Performed By: #### CMP #### [facility] [address] [address] [address] Andrade AlvaradoUrea nitrogen/Creatinine [Mass ratio]18.6 mg/mgNormAccess Hospital DaytonComment on above:Performed By: #### CMP #### [facility] [address] [address] [address] Andrade Ellsworth RATE WESTERGRENon 50-72-4375YTU RATE15 mm/hrNormal<=30The [facility] HospitalComment on above:Performed By: #### SEDR #### [facility] [address] [address] [address] Andrade Montoya LEFT 3 VWSon 62-78-0768ATVN LEFT 3 [facility]ITALni[facility] Department of Radiology [address] [place] [address] Patient Name: RADHA ZAIDI : [...] visible. Electronically signed: Eliezer Cam. Transcribed by: [email or web address], User Resident: Electronically Signed by: ELIEZER CAM @ 04/25/2020 11:44 [facility] HospitalComment on above:Order Comment: EvaluateTIBIA FIBULA LEFTon 15-04-3586KOAMU FIBULA [facility] Department of Radiology [address] [place] [id number] Patient Name: RADHA ZAIDI : 1960 Sex: F Age: Race: White Pt. Location: Patient Status: Ordered Date: 03/27/2020 8:05:00 AM Completed Date: 03/27/2020 08:35 AM Requesting Provider: CHARLI LUKE Attending Provider: Report Copy To: Signs & Symptoms: S82.832A Oth fracture of upper and lower end of left fibula, init I10 History: [place] Comments: , , , Ordering Provider - [...] healing Electronically signed: Crissy Dubon. Transcribed by: [email or web address], User Resident: Electronically Signed by: CRISSY DUBON @ 03/27/2020 09:11 AMNormalThe [facility] HospitalComment on above:Order Comment: EvaluateOperative Report on 89-72-0696Yjnbumntw ReportMR#: [id number] S [facility] Pt. Name: [...] were bluntly retracted. We then used a [place] as well as a hemostat to debride [...] Paniagua MD Date Trans: 03/13/2020 02:26 A/bryson DN_JN:[id number] cc: John Ashby D.O. [address] [place] [phone] Main Campus Medical CenterKN LEFT 1 OR 2 VWSon 09-63-1144FKUP LEFT 1 OR 2 SUniMercy Health Anderson Hospital Department of Radiology [address] [place] [id number] Patient Name: RADHA ZAIDI : 1960 [...] fracture. Electronically signed: Rahul James. Transcribed by: [email or web address], User Resident: Electronically Signed by: RAHUL JAMES @ 03/12/2020 03:20 PMNormalThe [facility] HospitalComment on above:Order Comment: EvaluatePOC GLUCOSE LAB on 84-62-4333Leowzln [Mass/Vol]103 mg/gHIlhf22-485QtwThe [facility] HospitalComment on above:Performed By: #### 61286 ####[facility]*MRSA/MSSA DNA NASALon 03-08-2020*MRSA/MSSA DNA NASALClinical Report: (D) Specimen: NASAL SWAB Collected: 03/08/2020 14:02 Status: Final Last Updated: 03/09/2020 09:30 MSSA DNA (Final) Negative MRSA DNA (Final) NegativeNormalThe [facility] HospitalComment on above:Performed By: #### 68445 ####[facility]*SARS-CoV-2 COVID-19on 15-95-7041UMNI-COVID-19Not DetectedNormal Not DetectedThe [facility] HospitalComment on above:Order Comment: The Aptima SARS-CoV-2 assay is a nucleic acid amplification test intended for the qualitative detection of RNA from SARS-CoV-2 isolated and purified from nasopharyngeal (RECREATION FACILITIES SUPERVISOR),oropharyngeal (OP), nasal swab, sputum, and bronchoalveolar lavage (BAL) specimens from patients with signs and symptoms of infection who are suspected of COVID-19. Results are for the identification of SARS-CoV-2 RNA. The SARS-CoV-2 RNA is generally detectable during the acute phase of infection. The Aptima SARS-CoV-2 Assay on the [employer] system is intended for use by laboratory personnel specifically instructed and trained in the operation of the [employer] system. The Aptima SARS-CoV-2 assay is [...] patient history, and epidemiological information.Performed By: #### [id number] #### [facility] [address] [place] [address], [facility] HOSPITALAPTTon 68-05-9850rFGD Coag (Bld) [Time]26.9 sNormal 25.0-35.0The [facility] HospitalComment on above:Result Comment: ALL RESULTS MUST [...] BE USED FOR THIS PURPOSE.Performed By: #### 01538, 25287 ####[facility] [place] [address], [facility] BASIC METABOLIC PANELon 23-61-4568Vqqfrlm [Mass/Vol]9.7 mg/dLNormal8.6-10.3The [facility] HospitalComment on above:Performed By: #### 61673 #### [facility] [address] [place] [address], [facility] HOSPITALChloride [Moles/Vol]103 mmol/JNryoqx61-839Nfg [facility] HospitalComment on above:Performed By: #### 28642 #### [facility] [address] [place] [address], USACO2 [Moles/Vol]31 mmol/LYvwyli30-38Zeh [facility] HospitalComment on above:Performed By: #### 65604 #### [facility] [address] [place] [address], USACreatinine [Mass/Vol]0.87 mg/dLNormal0.60-1.20The [facility] HospitalComment on above:Performed By: #### 96067 #### [facility] [address] [place] [address], USAGFR/1.73 sq M predicted among blacks MDRD (S/P/Bld) [Vol rate/Area]mL/min/{1.73_m2}Normal>60The [facility] Comment on above:Performed By: #### 30641 #### [facility] [address] [place] [address], USAGFR/1.73 sq M predicted among non-blacks MDRD (S/P/Bld) [Vol rate/Area]mL/min/{1.73_m2}Normal>60The [facility] Comment on above:Performed By: #### 20999 #### [facility] [address] [place] [address], USAGlucose [Mass/Vol]106 mg/nHTvjc82-159Ldb [facility] HospitalComment on above:Performed By: #### 03377 #### [facility] [address] [place] [address], USAPotassium [Moles/Vol]4.3 mmol/LNormal3.5-5.1The [facility] HospitalComment on above:Performed By: #### 16404 #### [facility] [address] [place] [address], USASodium [Moles/Vol]141 mmol/ICgyjjw242-340Udn [facility] CenterComment on above:Performed By: #### 38715 #### [facility] [address] [place] [address], USAUrea nitrogen [Mass/Vol]14 mg/dLNormal7-25The [facility] HospitalComment on above:Performed By: #### 87899 #### [facility] [address] [facility] [place] [address], USACBC W/DIFFon 44-54-4475FEZ BASOPHILS0.1 10*3/uLNormal 0.0-0.2The [facility] HospitalComment on above:Performed By: #### 90808 ####[facility] [facility] [place] [address], USAABS IMM GRANS0.0 10*3/uLNormal0.0-0.2The [facility] HospitalComment on above:Performed By: #### 28505 ####[facility] [facility] [place] [address], [facility] HOSPITALABS NEUTROPHILS3.4 10*3/uLNormal 1.6-7.6The [facility] HospitalComment on above:Performed By: #### 76172 ####[facility] [facility] [place] [address], [facility] HOSPITALBasophils/100 WBC (Bld)0.8 %Normal0.0-1.0The [facility] HospitalComment on above:Performed By: #### 43788 ####[facility] [facility] [place] [address], [facility] HOSPITALEosinophils (Bld) [#/Vol] 0.7 10*3/uLHigh0.0-0.5The [facility] HospitalComment on above: Performed By: #### 03644 ####[facility] [facility] [place] [address], [facility] HOSPITALEosinophils/100 WBC (Bld)9.5 %High0.0-6.0The [facility] HospitalComment on above:Performed By: #### 50533 ####[facility] [place] [address], [facility] Erythrocyte distribution width (RBC) [Ratio]13.6 %Qgunik67.5-15.0The [facility] HospitalComment on above:Performed By: #### 11948 ####[facility] [facility] [place] [address], USAHematocrit (Bld) [Volume fraction]42.5 %Dwbpwl47.0-45.0The [facility] HospitalComment on above:Performed By: #### 10816 ####[facility] [facility] [place] [address], USAHemoglobin (Bld) [Mass/Vol]13.7 g/lTMwrbel39.0-15.0The [facility] HospitalComment on above: Performed By: #### 31188 ####[facility] [place] [address], USAIMMATURE GRANS0.3 %Normal0.0-1.0The [facility] HospitalComment on above:Performed By: #### 00771 ####[facility] [facility] [place] [address], USALymphocytes (Bld) [#/Vol]2.7 10*3/uLNormal1.2-4.0The [facility] HospitalComment on above:Performed By: #### 63690 ####[facility] [facility] [place] [address], USALymphocytes/100 WBC (Bld)35.1 %Normal 20.0-45.0The [facility] HospitalComment on above:Performed By: #### 95254 ####[facility] [facility] [place] [address], USAMCH (RBC) [Entitic mass]31.2 enDmczbl40.0-33.0The [facility] HospitalComment on above:Performed By: #### 34995 ####[facility] [place] [address].[place] [address], [facility] HOSPITALMCHC (RBC) [Mass/Vol]32.2 g/vRSmfjmp03.0-35.0The [facility] HospitalComment on above: Performed By: #### 75478 ####[facility] [place] [address], [facility] HOSPITALMCV (RBC) [Entitic vol]96.8 wRCxjqss19.0-98.0The [facility] HospitalComment on above:Performed By: #### 12086 ####[address] [place] [address], [facility] Monocytes (Bld) [#/Vol]0.8 10*3/uLNormal0.1-1.0The [facility] HospitalComment on above:Performed By: #### [address]201 ####[place] [address], [facility] HOSPITALMONOS9.8 %Normal5.0-12.0The [facility] HospitalComment on above:Performed By: #### 83729 ####[address] [place] [address], [facility] Neutrophils/100 WBC (Bld)44.5 %Vnonsn20.0-72.0The [facility] HospitalComment on above:Performed By: #### 11997 ####[address] [place] [address], [facility] HOSPITALNucleated RBC/100 WBC (Bld) [Ratio]0 %Normal0-0The [facility] HospitalComment on above: Performed By: #### 01518 ####[address] [place] [address], [facility]AL HOSPITALPLAT PUB608 10*3/bDMyjyxa221-866Eyv [facility] HospitalComment on above:Performed By: #### 19588 ####[facility] [facility] [place] [address], [facility] HOSPITALRBC (Bld) [#/Vol] 4.39 10*6/uLNormal3.80-5.00The [facility] HospitalComment on above:Performed By: #### 34522 ####[facility] [facility] [place] [address], [facility] HOSPITALWBC (Bld) [#/Vol]7.72 10*3/uLNormal4.00-10.60 The [facility] HospitalComment on above:Performed By: #### 20413 ####[facility] [facility] [place] [address], [facility] PROTHROMBIN TIMEon 50-75-8736AOO Coag (PPP) [Relative time]0.99 {INR}Normal 0.91-1.16The [facility] HospitalComment on above:Result Comment: ACCCP RECOMMENDED INR [...] OPTIMAL THERAPEUTIC RANGE. CHEST 1995;108:231S-246S.Performed By: #### 60722, 35733 #### [facility] [address] [place] [address], USAPT Coag (PPP) [Time]13.1 wAgrief94.3-14.8The [facility] HospitalComment on above:Result Comment: ALL RESULTS MUST BE INTERPRETED WITH RESPECT TO BLOOD DRAWING ARTIFACT OR DILUTION ERROR OF ANTICOAGULANT AT THE TIME OF SAMPLING.Performed By: #### 14639, 38590 #### [facility] [address] [place] [address], USAALBUMIN BLOODon 59-72-8484Xxekhox [Mass/Vol]4.5 g/dLNormal 3.5-5.7The [facility] HospitalComment on above:Performed By: #### 58706, 61092, 73289, 07102, 70551 #### [facility] [address] [place] [address], USABASIC METABOLIC PANELon 69-54-3218Vysjlva [Mass/Vol]9.5 mg/dLNormal8.6-10.3The [facility] HospitalComment on above: Performed By: #### 69030, 68647, 00271, 13285, 41855 #### [facility] [address] [place] [address], USAChloride [Moles/Vol]105 mmol/POazdhh41-975Xad [facility] HospitalComment on above:Performed By: #### 97926, 40153, 94221, 83291, 29730 #### [facility] [address] [place] [address], USACO2 [Moles/Vol]27 mmol/WJepjht69-23Aap [facility] HospitalComment on above:Performed By: #### 34578, 61860, 59226, 40607, 01039 #### [facility] [address] [place] [address], USACreatinine [Mass/Vol]0.81 mg/dLNormal0.60-1.20The [facility] HospitalComment on above:Performed By: #### 59078, 30429, 25954, 32791, 99318 #### [facility] [address] [place] [address], USAGFR/1.73 sq M predicted among blacks MDRD (S/P/Bld) [Vol rate/Area]mL/min/{1.73_m2}Normal>60The [facility] Comment on above:Performed By: #### 38172, 55242, 15244, 21640, 20437 #### [facility] [address] [place] [address], USAGFR/1.73 sq M predicted among non-blacks MDRD (S/P/Bld) [Vol rate/Area]mL/min/{1.73_m2}Normal>60The [facility] Comment on above:Performed By: #### 29869, 81436, 18518, 93895, 58069 #### [facility] [address] [place] [address], USAGlucose [Mass/Vol]115 mg/qGNoiy73-342Asn [facility] HospitalComment on above:Performed By: #### 85560, 73190, 87520, 98267, 57557 #### [facility] [address] [place] [address], USAPotassium [Moles/Vol]3.9 mmol/LNormal3.5-5.1The [facility] HospitalComment on above:Performed By: #### 78632, 21399, 49363, 93457, 21137 #### [facility] [facility] [address] [place] [address], USASodium [Moles/Vol]140 mmol/RHdwdyi152-867Ing [facility] Berger HospitalComment on above:Performed By: #### 65499, 95032, 00061, 65987, 79921 #### [facility] [address] [place] [address], USAUrea nitrogen [Mass/Vol]20 mg/dLNormal7-25The [facility] Berger HospitalComment on above:Performed By: #### 33568, 42070, 14959, 50826, 39113 #### [facility] [address] [place] [address], USAPREALBUMINon 62-98-4516Fhxtsfumzd [Mass/Vol]24.0 mg/dL Vcedbe03.0-34.0The [facility] Berger HospitalComment on above:Performed By: #### 95905, 57679, 63496, 50604, 68681 #### [facility] [address] [place] [address], USATIBIA FIBULA LEFTon 90-82-0611VMGUT FIBULA LEFTUnUniversity Hospitals St[facility] Department of Radiology [address] [place] [id number] Patient Name: RADHA ZAIDI : 1960 [...] indicated. Electronically signed: Eliezer Randolph. Transcribed by: [email or web address], User Resident: Electronically Signed by: ELIEZER RANDOLPH @ 02/04/2020 10:34 AMNormalThe [facility] Berger HospitalTRANSFERRINon 21-03-1422Eyyngiiretu [Mass/Vol]270 mg/qVRqdwex442-159Rnd [facility] HospitalComment on above:Performed By: #### 10997, 61837, 95763, 97023, 93082 #### [facility] [address] [facility] [place] [address], USAVITAMIN D 25-HYDROXYon 47-64-1844QJRFWKB D 25-OH38.5 ng/mL Mpwmds00.0-80.0The [facility] Berger HospitalComment on above:Result Comment: >80.0 Toxicity possiblePerformed By: #### 19010, 50519, 03633, 91286, 24788 #### [facility] [address] [facility] [place] [address], USAFLUORO FOR SURGICAL PROCEDURESon 07-32-5529DWKVLP FOR SURGICAL PROCEDURESExam: FLUORO FOR SURGICAL PROCEDURESHistory: ACDF Fusion Findings: Fluoroscopy time was 70 seconds A total of 19 fluoroscopic images were obtained by Dr. Cheng during the anterior cervical discectomy inthe lower cervical spine.IMPRESSION: Impression: Fluoroscopic assistance provided for operative guidance.Interpreted by:DIANA Lealigned by:Eugene Cancino MD4//18Final resultNormalScl Health Community Hospital - SouthwestBasic Metabolic Panelon 84-91-4640Kdwxa gap15 mmol/LCritically high7-13[facility] Calcium9.6 mg/dLNormal8.6-10.2MUC[facility] Grandview HospitalChloride102 mmol/L Hnkpzs87-261PifhcScl Health Community Hospital - SouthwestCO223 mmol/MKgcuan63-44CzhxwScl Health Community Hospital - SouthwestCreatinine0.54 mg/dLNormal0.50-0.90[facility] eGFR (black)mL/min/{1.73_m2}Normal>60[facility] Hospital - SouthwestComment on above:Result Comment: >60 mL/min/1.73m2 EGFR, calc. for ages 18 and older using theMDRD formula (not corrected for weight), is valid for stablerenal function. eGFR (MDRD)mL/min/{1.73_m2}Normal>60[facility] Hospital - SouthwestComment on above:Result Comment: >60 mL/min/1.73m2 EGFR, calc. for ages 18 and older using theMDRD formula (not corrected for weight), is valid for stablerenal function. Glucose mass conc97 mg/sOGsxhty82-565OvksjScl Health Community Hospital - SouthwestPotassium molar conc4.8 mmol/LNormal3.5-5.1MNational Jewish Healthodium140 mmol/L Gbfjfs797-860RqujaScl Health Community Hospital - SouthwestUrea dzxjimlb74 mg/dLNormal6-20[facility] Hospital - SouthwestCBC With Platelet No Differentialon 92-85-4963Fsieqpzfwfy distribution width Auto Ratio (RBC)13.3 %Dexavu59.5-14.5[facility] Hospital - SouthwestErythrocytes (RBC)4.96 10*6/uLNormal4.20-5.40[facility] Hematocrit (HCT)47.1 %Critically high37.0-47.0[facility] Hemoglobin mass conc (Bld)16.2 g/dLCritically high12.0-16.0[facility] Hospital - SouthwestMCH32.7 pgCritically high27.0-31.3MUCHealth [facility] Hospital MCHC mass conc (RBC)34.4 %Uoqbna70.0-37.0[facility] Hospital - SouthwestMCV95.0 fL Uzygdf86.0-100.0[facility] Hospital - SouthwestPlatelets223 10*3/wELyluim348-430 [facility] Hospital - SouthwestWBC (Leukocytes)6.2 10*3/uLNormal4.8-10.8[facility] Hospital - SouthwestCulture, MRSA Screenon 93-54-1024Sdfrvav, MRSA Screen ORDERED BY: VITO STALLWORTH: Nares Nose COLLECTED: 10/13/17 13:18ANTIBIOTICS AT [facility].: RECEIVED : 10/13/17 13:18Culture, MRSA Screen FINAL 10/14/17 13:59 No MRSA isolatedNoChildren's Hospital ColoradoPartial Thromboplastin Timeon 79-21-5437bFMV28.9 tVzxmaz48.6-35.4[facility] Hospital - SouthwestComment on above:Result Comment: Heparin Therapeutic Range: 38.8 - 54.6 seconds.Prothrombin Timeon 17-03-4513EHD Coag RelTime (PPP)1.0 {INR}NormalScl Health Community Hospital - SouthwestComment on above:Result Comment: Recommended INR therapeutic ranges [...] sec Prothrombin time (PT) Coag time (PPP)10.0 sNormal8.1-13.7S[facility] Hospital - SouthwestType and Screen Capture 3 scrn cellon 65-05-7969Ykfzfhebp (total)PATIENT: DYAN GARCIA LOC: [facility] BILL# : [id number] : 1960 SEX: FORDERED BY: BASIM CHENG ORDERED : 10/13/2017 12:41 COLLECTED: 10/13/2017 13:24ORDER : [id number] RECEIVED : 10/13/2017 13:24 ---TEST NAME RESULT UNITS RANGES ABN FL STABORH Capture A POS FAntibody 3 Cell Scrn Captu NEG F NormalScl Health Community Hospital - SouthwestUrinalysis, reflex to cultureon 49-43-5872Sftxwwigg Ql (U) NegativeNormalNegAspen Valley HospitalUrine Reflexed to CultureNot IndicatedNoChildren's Hospital ColoradoUrine, clarityClearNormalClearScl Health Community Hospital - SouthwestUrine, colorYellowNormalStraw/YellScl Health Community Hospital - SouthwestUrine, glucose presenceNegativeNormalNegAspen Valley Hospital Urine, hemoglobin presenceNegativeNormalNegAspen Valley Hospital Urine, ketones presenceNegativeNormalNegAspen Valley HospitalUrine, leukocyte esterase presenceNegativeNormalNegAspen Valley Hospital Urine, nitrite presenceNegativeNormalNegAspen Valley HospitalUrine, pH5.5 [pH]Normal5.0-9.0S[facility] Hospital - SouthwestUrine, protein presence NegativeNormalNegAspen Valley HospitalUrine, specific gravity1.018 Normal1.005-1.03S[facility] Hospital - SouthwestUrine, urobilinogen0.2 {Rajwinder'U}/dLNormal< 2.0[facility] Vital Signs Date TimeVital SignValuePerforming NoxvutyqjFdcvnaxg07-40-4575 10:55-0500Body ialwuv086.6 cmJordan Yuan mGaadi Work Phone: noCloud.CMKdhgtkxsvu77-22-0391 10:55-0500Body mass index (BMI) [Ratio]28.15 kg/s4RatrpJordan Yuan mGaadi Work Phone: [facility] CenterLkukejfyzk06-14-3402 10:55-0500Body ripion93.39 kgJaroman Brown DO Work Phone: [facility] CenterDfjscxbytx45-28-3923 18:36-0400Diastolic blood npkbodss04 mm[Hg]John Ball DO Work Phone: 1(303)[address] [place], [place] 3346010-20-2025 18:36-0400 Heart rate72 /minBenjamin Ball DO Work Phone: 1(498)[address] [place], [place] 3346010-20-2025 18:36-0400 Inhaled oxygen flow rate15 L/minBenjamin Ball DO Work Phone: 1(180)[address] [place], [place] 3346010-20-2025 18:36-0400 Respiratory rate16 /minBenjamin Ball DO Work Phone: 1([phone])[address] [place], [place] 3346010-20-2025 18:36-0400 SaO2% (BldA) [Mass fraction]94 %John Ball DO Work Phone: 1(226)[address] [place], [place] 3346010-20-2025 18:36-0400 Systolic blood oqygwjiw605 mm[Hg]John Ball DO Work Phone: 1(136)[address] [place], [place] 3346010-20-2025 18:16-0400 Inhaled oxygen xexnqyhvhuuiz093 %John Ball DO Work Phone: 1(820)[address] [place], [place] 3346010-20-2025 15:30-0400 Body .1 cmBenjamin Ball DO Work Phone: 1(769)[address] [place], [place] 3346010-20-2025 15:30-0400 Body udjheoxqxvi11 [degF]John Ball DO Work Phone: 1(895)[address] [place], [place] 3346010-20-2025 15:30-0400 Body .43 kgBenjamin Ball DO Work Phone: 1(116)[address] [place], [place] 3346008-27-2025 09:22-0400 Body ajvfta730.1 cmBenjamin Ball DO Work Phone: 1(682)[address] [place], [place] 3346008-27-2025 09:22-0400 Body mass index (BMI) [Ratio]20.5 kg/p3Erjnuypd Ball DO Work Phone: 1(254)539-[address] [place], [place] 6566308-27-2025 09:22-0400 Body smplra14.84 kgBenjamin Ball DO Work Phone: 1(300)959-[address] [place], [place] 6566308-27-2025 09:22-0400 Diastolic blood tdyzirlx67 mm[Hg]John Ball DO Work Phone: 1(012)248-[address] [place], [place] 6566308-27-2025 09:22-0400 Heart rate80 /minBenjamin Ball DO Work Phone: [phone])[address]08-27-2025 09:22-0400 Respiratory rate12 /minBenjamin Ball DO Work Phone: 1(246)[address]08-27-2025 09:22-0400 Systolic blood wjxlpbig428 mm[Hg]John Ball DO Work Phone: 1(470)[address]04-29-2025 14:11-0400 Body tdigrs358.1 cmBenjamin Ball DO Work Phone: 1(778)[facility] [place], [place] 6566304-29-2025 14:11-0400 Body mass index (BMI) [Ratio]22.1 kg/h1Jluxpzgp Ball DO Work Phone: 1(547)[facility] [place], [place] 6566304-29-2025 14:11-0400 Body dypgkg01.44 kgBenjamin Ball DO Work Phone: 1(449)[address]03-27-2025 14:49-0400 Body vkwyuf252.6 cmJason Brown DO Work Phone: [facility] CenterHhfozgfilg59-12-8725 14:49-0400Body mass index (BMI) [Ratio]28.15 kg/r9Owegz Brown DO Work Phone: [facility] CenterUouugrgvhv97-13-1983 14:49-0400Body ikzlan73.39 kgJason Brown DO Work Phone: [facility] CenterVihqlyamvu61-05-3867 10:34-0400Body dewirc897.1 cmUniversity [facility]03-18-2025 10:34-0400Body mass index (BMI) [Ratio]22.1 kg/i5GvhopcfcuUniversity Hospitals [facility] Medical Center03-18-2025 10:34-0400Body oarimy74.44 kgUniversity Hospitals [facility] Center03-18-2025 10:34-0400Diastolic blood ugvgfhhq14 mm[Hg][facility]03-18-2025 10:34-0400 Heart rate72 /[facility]03-18-2025 10:34-0400 Respiratory rate16 /[facility]03-18-2025 10:34-0400 SaO2% (BldA) [Mass fraction]97 %[facility]03-18-2025 10:34-0400Systolic blood mijxpgey519 mm[Hg][facility] 09-18-2024 10:17-0400Body eeruvr199.6 cmJordan [employer] Work Phone: 1(912)1-[address] [place], [place] [address]Bnakotueze05-35-4804 10:17-0400Body mass index (BMI) [Ratio]28.15 kg/k3Nzccz [employer] Phone: [phone])[address]03-11-2025 10:17-0400Body cjovld71.39 kgJordan [employer] Work Phone: 1(970)2-[address] [place], [place] [address]Rlpdecevjf01-00-4969 15:44-0500Body vklkye799.1 cmUniversity [facility]als [facility]02-19-2025 15:44-0500Body mass index (BMI) [Ratio]22 kg/z0SqvporlzbUniversity Hospitals [facility] Center02-19-2025 15:44-0500Body weight 60.04 kgUniversity Hospitals [facility] Center02-19-2025 15:44-0500Diastolic blood mcwoodgo25 mm[Hg][facility]02-19-2025 15:44-0500Heart rate57 /[facility]02-19-2025 15:44-0500Respiratory rate12 /[facility]02-19-2025 15:44-0500Systolic blood frpcqusr026 mm[Hg][facility]01-07-2025 15:06-0500Body bgisgx185.6 cmJordan Yuan DO Work Phone: 1(639)[address] [place], [place] 7983001-07-2025 15:06-0500Body mass index (BMI) [Ratio]28.15 kg/a9JbsamJordan Yuan DO Work Phone: 1(726)[address] [place], [place] 7983001-07-2025 15:06-0500Body ylnskg81.39 kgJordan Yuan DO Work Phone: 1(606)[address] [place], [place] 7983011-26-2024 14:20-0500Body iezgsm716.6 cmJordan Yuan DO Work Phone: 1([phone])[address] [place], [place] 7983011-26-2024 14:20-0500Body mass index (BMI) [Ratio]28.15 kg/u3CdvpgJordan Yuan DO Work Phone: 1(706)[address] [place], [place] 7983011-26-2024 14:20-0500Body temperature 97.5 [degF]Jordan Yuan DO Work Phone: [phone])[address] [place], [place] 7983011-26-2024 14:20-0500Body epuhbr91.39 kgJordan Yuan DO Work Phone: 1(922)[address] [place], [place] 7983010-29-2024 10:38-0400Body mbqkbe262.6 cmJordan Yuan DO Work Phone: 1(985)[address] [place], [place] 7983010-29-2024 10:38-0400Body mass index (BMI) [Ratio]28.15 kg/i1CsxsxJordan Yuan DO Work Phone: 1(053)[address] [place], [place] 7983010-29-2024 10:38-0400Body temperature 97.39 [degF]Jordan Yuan DO Work Phone: 1(362)[address] [place], [place] 7983010-29-2024 10:38-0400Body xrtwga23.39 kgJordan Yuan DO Work Phone: 1(483)[address] [place], [place] 7983010-18-2024 13:08-0400Heart rate80 /min Jordan Yuan [address] [place], [place] 1361210-18-2024 13:08-6186KvB8% (BldA) [Mass fraction]94 %Jordan Yuan [address] [place], [place] 2508610-18-2024 13:08-0400Blood Pressure LocationJordan Yuan [address] [place], [place] 2508610-18-2024 13:08-0400 Diastolic blood hcysopbe70 mm[Hg]Jordan Yuan [address] [place], [place] 2508610-18-2024 13:08-0400Mean blood rnpbgpry22 mm[Hg]Jordan Yuan [address] [place], [place] 2508610-18-2024 13:08-0400 Systolic blood mm[Hg]Jordan Yuan [address] [place], [place] 2508610-18-2024 13:08-0400 Respiratory rate18 /Cyndy Yuan [address] [place], [place] 2508610-18-2024 11:23-0400Heart rate72 /Cyndy Yuan [address] [place], [place] 2508610-18-2024 11:23-6203OxD3% (BldA) [Mass fraction]100 %Jordan Yuan [address] [place], [place] 2508610-18-2024 11:22-0400Blood Pressure LocationJordan Yuan [address] [place], [place] 2508610-18-2024 11:22-0400 Diastolic blood hxeckywk72 mm[Hg]Jordan Yuan [address] [place], [place] 2508610-18-2024 11:22-0400Mean blood mm[Hg]Jordan Yuan [address] [place], [place] 2508610-18-2024 11:22-0400 Systolic blood fsmxjped471 mm[Hg]Jordan Yuan [address] [place], [place] 2508610-18-2024 11:22-0400 Respiratory rate18 /minJordan Yuan [address] [place], [place] 2508610-18-2024 11:15-0400Blood Pressure LocationJordan Yuan [address]10-18-2024 11:15-0400Body zesbqzqwvqt05.16 [degF]Jordan Yuan [address] [place], [place] 2508610-18-2024 11:15-0400 Diastolic blood oiljjgwy35 mm[Hg]Jordan Yuan [address] [place], [place] 2508610-18-2024 11:15-0400Heart rate79 /Cyndy Yuan [address] [place], [place] 2508610-18-2024 11:15-0400Mean blood xdycnmch60 mm[Hg]Jordan Yuan [address] [place], [place] 2508610-18-2024 11:15-0400 Respiratory rate20 /Cyndy Yuan [address] [place], [place] 2508610-18-2024 11:15-9971SvU0% (BldA) [Mass fraction]100 %Jordan Yuan [address] [place], [place] 2508610-18-2024 11:15-0400 Systolic blood wdfpukda211 mm[Hg]Jordan Yuan [address] [place], [place] 2508610-18-2024 11:05-0400Mean blood ofiztilu44 mm[Hg]Jordan Yuan [address] [place], [place] 2508610-18-2024 11:05-0400 Respiratory rate16 /Cyndy Yuan [address] [place], [place] 1361210-18-2024 10:50-0400Mean blood akrvesrx52 mm[Hg]Jordan Yuan [address] [place], [place] 2508610-18-2024 10:50-0400 Respiratory rate9 /Cyndy Yuan [address] [place], [place] 2508610-18-2024 10:10-0400Body nzpcpnkqfuj67.16 [degF]Jordan Yuan [address] [place], [place] 2508610-18-2024 10:05-0400 Respiratory rate12 /Cyndy Yuan [facility]10-18-2024 06:23-0400Mean blood fnenhdjk31 mm[Hg]Jordan Yuan [facility]10-18-2024 06:22-0400Body sqfmlrolzkd59.7 [degF]Jordan Yuan [facility]10-08-2024 15:14-0400Body bomppz143.1 cmUniversity [facility]10-08-2024 15:14-0400Body mass index (BMI) [Ratio]23.1 kg/m0CeglrwwvlUniversity Hospitals Geneva Medical Center10-08-2024 15:14-0400Body cuobxg62.16 [facility]10-08-2024 15:14-0400Diastolic blood iszroace50 mm[Hg][facility] 04-17-2024 15:14-0400Heart rate84 /[facility] 04-17-2024 15:14-0400Respiratory rate12 /[facility] 04-17-2024 15:14-0400Systolic blood hubkaqmw632 mm[Hg][facility]09-17-2024 16:24-0400Body pdvitd520.1 cmUniversity [facility]als [facility] 03-27-2024 16:24-0400Body mass index (BMI) [Ratio]23.9 kg/o6KmpgwzojoUniversity Hospitals Geneva Medical Center09-17-2024 16:24-0400Body .31 [facility]09-17-2024 16:24-0400Diastolic blood uaexdkiy83 mm[Hg][facility]09-17-2024 16:24-0400Heart rate87 /[facility]09-17-2024 16:24-0400Respiratory rate12 /[facility]09-17-2024 16:24-0400Systolic blood olqbtpbv795 mm[Hg][facility]09-09-2024 12:28-0400Diastolic blood mm[Hg]Jordan Yuan [address] [place], [place] 1361209-09-2024 12:28-0400 Systolic blood mhwxfzno191 mm[Hg]Jordan Yuan [address] [place], [place] 1361209-09-2024 12:27-0400Blood Pressure LocationJordan Yuan [address]09-09-2024 12:27-0400Body bpkinjgldwu77.88 [degF]Jordan Yuan [address] [place], [place] 1361209-09-2024 12:27-0400 Diastolic blood snwthahq52 mm[Hg]Jordan Yuan [address]09-09-2024 12:27-0400Heart rate75 /minJordan Yuan [address] [place], [place] 2508609-09-2024 12:27-0400Mean blood lkwnomou85 mm[Hg]Jordan Yuan [address]09-09-2024 12:27-0400 Respiratory rate15 /minJordan Yuan [address] [place], [place] 1361209-09-2024 12:27-6389GkW3% (BldA) [Mass fraction]97 %Jordan Yuan [address] [place], [place] 1361209-09-2024 12:27-0400 Systolic blood wytgpyiy018 mm[Hg]Jordan Yuan [address] [place], [place] 2508608-21-2024 09:29-0400Body .1 cmUniversity [facility]08-21-2024 09:29-0400Body mass index (BMI) [Ratio]24.1 kg/s2PxvyatoerUniversity Hospitals Geneva Medical Center08-21-2024 09:29-0400Body cbxayd05.82 kgUniversity Hospitals [facility] Center08-21-2024 09:29-0400Diastolic blood wfgvkaas01 mm[Hg][facility] 02-29-2024 09:29-0400Heart rate74 /[facility] 02-29-2024 09:29-0400Respiratory rate12 /[facility] 02-29-2024 09:29-0400Systolic blood cdbyrbcb291 mm[Hg][facility]06-19-2024 15:31-0400Body zwljoq199.1 cmUniversity [facility]als [facility] 12-28-2023 15:31-0400Body mass index (BMI) [Ratio]25.7 kg/j7GgzukinryUniversity Hospitals [facility] Medical Center06-19-2024 15:31-0400Body roqroa61.08 [facility]06-19-2024 15:31-0400Diastolic blood mm[Hg][facility]06-19-2024 15:31-0400Heart rate92 /[facility]06-19-2024 15:31-0400Respiratory rate12 /[facility]06-19-2024 15:31-0400Systolic blood iwwgapbb493 mm[Hg][facility]05-07-2024 15:42-0400Body oqfzro966.6 [employer] Work Phone: 1([phone] [place], [place] [address]Zujsbyrplp28-64-7069 15:42-0400Body mass index (BMI) [Ratio]28.15 kg/e1Iebsp [employer] Work Phone: [facility] CenterPcivvenmof99-96-1624 15:42-0400Body zjffyc51.39 kgJordan Yuan mGaadi Work Phone: [phone])921-[address] [place], [place] [address]Zlnuxtdrxy65-86-5975 15:16-0400Body .1 cmUniversity [facility]03-20-2024 15:16-0400Body mass index (BMI) [Ratio]27.8 kg/g5HgaesazsuUniversity Hospitals Geneva Medical Center03-20-2024 15:16-0400Body tjehjo68.92 [facility]03-20-2024 15:16-0400Diastolic blood gjowdfhy48 mm[Hg][facility]03-20-2024 15:16-0400 Heart rate80 /[facility]03-20-2024 15:16-0400 Respiratory rate12 /minUniversity Hospitals Geneva Medical Center03-20-2024 15:16-0400 Systolic blood zxtlagja218 mm[Hg][facility]02-26-2024 21:48-0500Body wsmwty774.37 cmBenjamin Ball Other [employer] Other 02-26-2024 16:33-0500Body rcpvky993.1 cmUniversity [facility]als [facility]02-26-2024 16:33-0500Body mass index (BMI) [Ratio]28.5 kg/s2DzeduchjnUniversity Hospitals [facility] Center02-26-2024 16:33-0500Body qvyjlh85.79 kg [facility]02-26-2024 16:33-0500Diastolic blood ewlobtnt71 mm[Hg][facility]02-26-2024 16:33-0500Heart rate97 /min [facility]02-26-2024 16:33-0500Systolic blood yhgklckf394 mm[Hg][facility]02-08-2024 15:40-0500Body smnunj725.6 cm Jordan Yuan DO Work Phone: [employer] Nvqpbfmvyu93-59-3959 15:40-0500Body mass index (BMI) [Ratio]28.15 kg/z8OwpcwJordan Yuan mGaadi Work Phone: noCloud.CMIljlnuvxxk38-65-4305 15:40-0500Body temperature 97.11 [degF]Jordan Yuan DO Work Phone: noCloud.CMWidwppeejl36-06-6658 15:40-0500Body epgtlo62.39 kgJordan Yuan mGaadi Work Phone: noCloud.CMIdvcedohqo53-16-7640 15:00-0500Body avrzxv408.37 cmBenjamin Ball Other [employer] Other 02-07-2024 15:00-0500Body mass index (BMI) [Ratio] 28.12 kg/d4Dwowprjs Ball Other [employer] Other 02-07-2024 15:00-0500Body pftiea93.84 kgBenjamin Ball Other [facility] [employer] Other 02-07-2024 15:00-0500Diastolic blood iouqxbza56 mm[Hg] John Ball Other [facility] [employer] Other 02-07-2024 15:00-0500Respiratory rate12 /minBenjamin Ball Other [facility]Saint [facility] [employer] Other 02-07-2024 15:00-0500Systolic blood mm[Hg] John Ball Other [facility] [employer] Other 09-28-2023 14:00-0400Body agemjzflynx97.52 [degF]Jordanroman Yuan [facility]09-28-2023 14:00-0400 Diastolic blood xpeobynv68 mm[Hg]Jordan Yuan [facility]09-28-2023 14:00-0400Heart rate88 /Cyndy Yuan [facility]09-28-2023 14:00-0400Mean blood cynoswsn20 mm[Hg]Jordan nAderson [facility]09-28-2023 14:00-0139XkB9% (BldA) [Mass fraction]94 %Jordan Yuan [facility]09-28-2023 14:00-0400 Systolic blood xdnrgizt601 mm[Hg]Jordan Anderson [facility]09-28-2023 08:47-0400 Diastolic blood gvbvehmr06 mm[Hg]Jordan Anderson [facility]09-28-2023 08:47-0400 Systolic blood gnsovebg400 mm[Hg]Jordan Yuan [address] [place], [place] 1361209-28-2023 07:45-0400Blood Pressure LocationJordan Yuan [address] [place], [place] 1361209-28-2023 07:45-0400Body gqxijqnhwbj40.88 [degF]Jordan Yuan [address] [place], [place] 1361209-28-2023 07:45-0400 Diastolic blood ofxnvhev39 mm[Hg]Jordan Yuan [address] [place], [place] 1361209-28-2023 07:45-0400Heart rate72 /Cyndy Yuan [address] [place], [place] 2508609-28-2023 07:45-0400 Hourly RoundingJordan Yuan [address] [place], [place] 2508609-28-2023 07:45-0400Mean blood vanukmdq58 mm[Hg]Jordan Yuan [address] [place], [place] 1361209-28-2023 07:45-0400 Promise to ReturnJordan Yuan [address] [place], [place] 1361209-28-2023 07:45-0400 Respiratory rate16 /Cyndy Yuan [address] [place], [place] 1361209-28-2023 07:45-6570FoH6% (BldA) [Mass fraction]96 %Jordan Yuan [address] [place], [place] 1361209-28-2023 07:45-0400 Systolic blood kljopkap010 mm[Hg]Jordan Yuan [address] [place], [place] 1361209-28-2023 06:17-0400 Hourly RoundingJordan Yuan [address] [place], [place] 1361209-28-2023 06:17-0400 Promise to ReturnJordan Yuan [address] [place], [place] 1361209-28-2023 05:05-0400 Hourly RoundingJordan Yuan [address] [place], [place] 1361209-28-2023 05:05-0400 Promise to ReturnJordan Yuan [address] [place], [place] 1361209-27-2023 22:20-0400Blood Pressure LocationJordan Yuan [address] [place], [place] 2508609-27-2023 22:20-0400Body vtoypfgbgtn31.24 [degF]Jordan Yuan [address] [place], [place] 1361209-27-2023 22:20-0400Heart rate74 /Cyndy Yuan [address] [place], [place] 1361209-27-2023 22:20-0400Mean blood ykmsvqwu36 mm[Hg]Jordan Yuan [address] [place], [place] 2508609-27-2023 22:20-0400 Respiratory rate16 /Cyndy Yuan [address] [place], [place] 1361209-27-2023 22:20-5732SvM9% (BldA) [Mass fraction]93 %Jordan Yuan [address] [place], [place] 1361209-27-2023 20:10-0400Heart rate65 /Cyndy Yuan [address] [place], [place] 1361209-27-2023 20:01-0400Body xnkdkymgzmx84.34 [degF]Jordan Yuan [address] [place], [place] 1361209-27-2023 20:00-0400Mean blood ztvtklas65 mm[Hg]Jordan Yuan [address] [place], [place] 1361209-27-2023 16:17-0400Mean blood mm[Hg]Jordan Yuan [address] [place] [id number] 16:16-0400Body mhmafisahho17.52 [degF]Jordan Yuan [address] [place], [place] 2508609-27-2023 13:49-0400Mean blood wndwcpto72 mm[Hg]Jordan Yuan [address]09-27-2023 12:45-0400 Respiratory rate13 /Cyndy Yuan [address] [place], [place] 2508609-27-2023 12:35-0400 Respiratory rate10 /Cyndy Yuan [address] [place], [place] 1361209-27-2023 12:20-0400 Respiratory rate17 /Cyndy Yuan [address] [place], [place] 2508609-27-2023 11:37-0400Body bsrytecqspp35.98 [degF]Jordan Yuan [address] [place], [place] 2508609-27-2023 06:39-0400Heart rate68 /Cyndy Yuan [address] [place], [place] 2508609-14-2023 14:52-0400 Diastolic blood uknirvxw72 mm[Hg]Jordan Yuan [address] [place], [place] 1361209-14-2023 14:52-0400Heart rate67 /Cyndy Yuan [address] [place], [place] 1361209-14-2023 14:52-0400Mean blood acoovqow33 mm[Hg]Jordan Yuan [address] [place], [place] 1361209-14-2023 14:52-0400 Systolic blood mm[Hg]Jordan Yuan [address] [place], [place] 1361209-14-2023 14:52-0400Heart rate68 /Cyndy Yuan [address] [place], [place] 1361209-14-2023 14:52-3897KlS8% (BldA) [Mass fraction]99 %Jordan Yuan [address] [place], [place] 1361209-14-2023 14:52-0400 Diastolic blood jhzxzydf22 mm[Hg]Jordan Yuan [facility]09-14-2023 14:52-0400Mean blood ohfrqyvr87 mm[Hg]Jordan Yuan [facility]09-14-2023 14:52-0400 Systolic blood stxhowro659 mm[Hg]Jordan Yuan [facility]09-14-2023 14:51-0400 Respiratory rate16 /minJordan Yuan [facility]07-03-2023 15:00-0400Body .37 cmBenjamin Ball Other [facility] [employer] Other 07-03-2023 15:00-0400Body mass index (BMI) [Ratio] 27.04 kg/w4Cgybvbdd Ball Other [facility] [employer] Other 07-03-2023 15:00-0400Body jschij11.84 kgBenjamin Ball Other [facility] [employer] Other 07-03-2023 15:00-0400Diastolic blood zifmehdx33 mm[Hg] John Ball Other [facility] [employer] Other 07-03-2023 15:00-0400Respiratory rate12 /minBenjamin Ball Other [employer] Other 07-03-2023 15:00-0400Systolic blood akgkojaz711 mm[Hg] John Ball Other [employer] Other 06-01-2023 09:00-0400Body bsqiam924.37 cmBenjamin Ball Other [employer] Other 06-01-2023 09:00-0400Body mass index (BMI) [Ratio] 27.33 kg/k4Wssodzsu Ball Other [employer] Other 06-01-2023 09:00-0400Body rvmywr01.66 kgBenjamin Ball Other [employer] Other 06-01-2023 09:00-0400Diastolic blood mm[Hg] John Ball Other [employer] Other 06-01-2023 09:00-0400Respiratory rate12 /minBenjamin Ball Other [employer] Other 06-01-2023 09:00-0400Systolic blood ximxnzja362 mm[Hg] John Ball Other [employer] Other 05-02-2023 15:00-0400Body wuuudd387.37 cmBenjamin Ball Other [employer] Other 05-02-2023 15:00-0400Body mass index (BMI) [Ratio] 27.36 kg/p7Dowlgrxp Ball Other [employer] Other 05-02-2023 15:00-0400Body ilkkty65.75 kgBenjamin Ball Other [employer] Other 05-02-2023 15:00-0400Diastolic blood qqgmpekb60 mm[Hg] John Ball Other [employer] Other 05-02-2023 15:00-0400Respiratory rate12 /minBenjamin Ball Other [employer] Other 05-02-2023 15:00-0400Systolic blood bykeissq332 mm[Hg] John Ball Other [employer] Other 01-16-2023 16:30-0500Body .37 cmBenjamin Ball Other [employer] Other 01-16-2023 16:30-0500Body mass index (BMI) [Ratio] 26.28 kg/n4Ntfrusim Ball Other [employer] Other 01-16-2023 16:30-0500Body dvrcoo77.76 kgBenjamin Ball Other [employer] Other 01-16-2023 16:30-0500Diastolic blood mcnoghlr20 mm[Hg] John Ball Other [employer] Other 01-16-2023 16:30-0500Respiratory rate12 /minBenjamin Ball Other [employer] Other 01-16-2023 16:30-0500Systolic blood kaqoxhkt009 mm[Hg] John Ball Other [employer] Other Encounters Encounter DateEncounter TypeCare ProviderFacilityStart: 05-13-2025 End: 90-65-9850ferbdqqhcuEBCZS A BROWNNot AvailableStart: 05-13-2025 End: 95-49-6607Awtpwqm encounter procedureJordan Yuan DO Work Phone: [facility]oms [facility] OrthopaedicsComment on above:Hx of total shoulder replacement, right (Primary Dx)Start: 05-13-2025 End: 43-32-6731eawhmdgxupQVQGI A BROWNNot AvailableStart: 05-13-2025 End: 74-17-9214eceetecoccRIKSN A BROWNNot AvailableStart: 04-29-2025 End: 77-78-4495Blktortay department patient visitBegloria Ashby DO Work Phone: [phone]-Einripnur Room Work Phone: Start: 16-16-5132jvhingthgvJcazyhnm Ball DO Work Phone: [facility] Work Phone: Start: 33-00-6963Qhr-patient / Non-visitBenjamin Ball DO-[facility] Work Phone: Start: 22-88-5450Qpo-patient / Non-visitBenjamin Ball DO-[facility] Work Phone: Start: 03-06-2025 End: 91-76-0097yedchjldlfSjicarky Ball DO Work Phone: [facility] Work Phone: Start: 03-06-2025 End: 04-51-7497Qhnrogr encounter procedureBentheresamin Ball DO-[facility] Work Phone: Start: 03-04-2025 End: 79-56-6468lkqkdnloxuMpnbroe Vytautas Giedraitis MDFacility:[facility] [place] Start: 12-10-2024 End: 73-43-4589ozhkrkunevYJWKMJ [facility] Start: 11-19-2024 End: 34-80-8028ofrcrwfaqcWvxmxkw Vytautas Giedraitis MDFacility:[facility] [place] Start: 11-06-2024 End: 25-66-6761gkbykykikcPmukbqla Ball DO Work Phone: [facility] Work Phone: Start: 11-06-2024 End: 15-65-3908Ktjdwby encounter procedureBenwali Ball DO Work Phone: [facility] Work Phone: Start: 11-06-2024 End: 58-21-7339Zpvlvir encounter procedureBenjamin Ball DO Work Phone: [facility] Start: 11-06-2024 End: 76-65-4243erymcutdjnCyypjdlh Ball DO Work Phone: [facility] Work Phone: Start: 10-29-2024 End: 63-57-3419zbrgofveyeJtmiqxv Vytautas Giedraitis MDFacility:[facility] [place] Start: 10-08-2024 End: 99-51-2826dxchkpxattTeduben Vytautas Giedraitis MDFacility:[facility] [place] Start: 10-04-2024 End: 54-33-6408Mynlsim encounter procedureJordan Yuan DO Work Phone: NOMS NB ORTHOComment on above:Complete tear of left rotator cuff, unspecified whether traumatic (Primary Dx)Start: 10-04-2024 End: 18-31-7081ikrpiyczyeFVAGY A BROWNNot AvailableStart: 10-04-2024 End: 15-17-6277Oynkdg flowsheetJordan Rogers Brown DO Work Phone: NOMS ORTHOStart: 10-04-2024 End: 72-45-3612Ftipxj flowsheetJordan Rogers Brown DO Work Phone: NOMS ORTHOStart: 09-28-2024 End: 04-26-8968gfmkonxaxcUpwyn A BrownFacility:FTMCStart: 09-25-2024 End: 43-06-0139vhdadfqecvHrezormarSt. Francis Hospital Work Phone: Start: 09-25-2024 End: 21-77-8820Lyvcgsf encounter procedureNov[facility] Phys[facility] Nephrology Hoang Work Phone: Start: 09-18-2024 End: 45-19-1521Lebltof encounter procedureJordan Yuan DO Work Phone: NOMS NB ORTHOComment on above:S/P arthroscopy of left shoulder (Primary Dx)Start: 09-18-2024 End: 07-25-2167fmsnvquslvLLKRO A BROWNNot AvailableStart: 82-42-9297Jmr-patient / Non-visitNov[facility] Health [facility] Physician [facility] Work Phone: Start: 08-29-2024 End: 36-84-0840yzwfcjplbhAgwcklebgSt. Francis Hospital Work Phone: Start: 08-29-2024 End: 69-89-5201Txhtghjda for general adult medical examination without abnormal findingsSelect [facility] Southtart: 08-29-2024 End: 43-59-8922Zyhvjpk encounter procedureNov[facility] Health [facility] Physician [facility] Work Phone: Start: 47-91-1657Ymbcfci encounter statusSelect Medical Specialty Hospital [facility] Southtart: 07-17-2024 End: 24-86-5002Zjmyqmt encounter procedureJordan Yuan DO Work Phone: noMS NB ORTHOComment on above:S/P arthroscopy of left shoulder (Primary Dx)Start: 07-17-2024 End: 15-89-4941nissbslmvrFGBGH A BROWNNot AvailableStart: 07-17-2024 End: 02-58-3263Yicyju flowsheetJordan Yuan DO Work Phone: NOMS ORTHOStart: 07-17-2024 End: 26-73-8021Uyjhst Randall Yuan DO Work Phone: NOMS ORTHOStart: 15-67-4660Dzg-patient / Non-visit [facility] Work Phone: Start: 06-14-2024 End: 75-35-0611Regpvaa encounter procedureNov[facility] Health [facility] Physician [facility] Work Phone: Start: 06-05-2024 End: 29-62-9317heayzmbyijICWKA A BROWNNot AvailableStart: 06-05-2024 End: 89-18-5482Ohsrbey encounter procedureJordan Yuan DO Work Phone: NOMS NB ORTHOComment on above:Status post shoulder surgery (Primary Dx)Start: 05-09-2024 End: 13-86-8466remtkuzndyKwmiblxhrSt. Francis Hospital Work Phone: Start: 05-09-2024 End: 11-66-9643Nqindhz encounter procedureFirpareshs Physician Group-[facility] Work Phone: Start: 05-08-2024 End: 97-43-3980Cegxqrv encounter Radha Yuan DO Work Phone: noms NB ORTHOComment on above:Status post shoulder surgery (Primary Dx)Start: 04-27-2024 End: 01-66-4705Fomwtliai to same day surgery iukaJordan Yuan [facility] Start: 04-27-2024 End: 29-96-3242eteiqtbgmnVG Jordan YuanFacility:FTMCStart: 04-17-2024 End: 10-69-3756kjbrwakdleYnmvlijgsSt. Francis Hospital Work Phone: Start: 04-17-2024 End: 47-15-0116Soxyfpl encounter procedureFirpareshs Physician Group-[facility] Work Phone: Start: 04-10-2024 End: 09-09-9133irpgjgqbeuYpburzbcuSt. Francis Hospital Work Phone: Start: 04-10-2024 End: 98-24-7586Iqzprrg encounter procedureFirhamiltons Physician Group-[facility] Work Phone: Start: 03-30-2024 End: 78-48-8070ffmizqtgzsJjdhzzqfeSt. Francis Hospital Work Phone: start: 03-30-2024 End: 84-38-5584Aeelklm encounter procedureFirhamiltons Physician Group-[facility] Work Phone: start: 03-27-2024 End: 88-04-6550xisvmkmnonAsprgichcSt. Francis Hospital Work Phone: start: 03-27-2024 End: 13-49-1565Mqhytri encounter procedureNov[facility] Health [facility] Work Phone: Start: 03-23-2777Sgtlfdk encounter statusSelect [facility] Southtart: 03-19-2024 End: 79-74-5585vrqdibxuweExqlk A BrownFacility:FTMCStart: 03-19-2024 End: 53-85-3982Viukpfh encounter Radha Yuan [facility] Start: 02-29-2024 End: 36-25-4330ugzhzudpczBcyzmcfsfBlanchard [facility] Work Phone: Start: 02-29-2024 End: 34-71-3467Roitdgf encounter procedureNov[facility] Work Phone: Start: 21-18-9971Wip-patient / Non-visitNov[facility] Health [facility] Work Phone: Start: 63-47-7294Vux-patient / Non-visitNovant Health [facility] Work Phone: Start: 12-28-2023 End: 30-22-7600ovkeydbdmaUljfmvqbjBlanchard Valley Health [facility] Work Phone: Start: 12-28-2023 End: 74-66-1364Tessiuo encounter procedureNovant Health [facility] Physician GroupTriHealth [facility] Work Phone: Start: 11-15-2023 End: 22-22-3721Vwlghiz encounter Radha Yuan DO Work Phone: noms NB ORTHOComment on above:Status post shoulder surgery (Primary Dx)Start: 09-28-2023 End: 27-76-5894lusbvjaszkKvecmwbraBlanchard Valley Health [facility] Work Phone: Start: 09-28-2023 End: 34-09-9575Lrpuoql encounter procedureJamirbon [facility] Phys[facility] Work Phone: Start: 09-06-2023 End: 50-70-5479iibsbybjtdHefrv Sue AndersonFacility:FTMCStart: 09-06-2023 End: 59-90-2831Wxidoud encounter procedureJordan Yuan [facility] Start: 09-06-2023 End: 04-33-8920Mkvsrcxqj Result EncounterJordan Yuan DO Work Phone: NOYA External Department UnsolicitedStart: 09-06-2023 End: 09-76-4067Fwdkhtpox Result EncounterJordan Yuan DO Work Phone: NOWS External Department UnsolicitedStart: 09-05-2023 Non-patient / Non-visitFirelands Physician GroupPe[facility] Work Phone: Start: 09-05-2023 End: 62-51-9385wzpnawudolQigrnaos Symone Other [employer] Other Start: 42-11-0583Aclddfsbi encountergloria [facility] Centertart: 73-23-4471Emh-patient / Non-visitFirelands Physician GroupPeacehealth [facility] Work Phone: Start: 11-83-1841Frw-patient / Non-visitFirelands Physician GroupPeacehealth [facility] Work Phone: Start: 08-18-2023 End: 90-34-4054Njfogig encounter procedureJordan Yuan DO Work Phone: NOBW NB ORTHOComment on above:Right shoulder pain, unspecified chronicity (Primary Dx)Start: 94-71-2579Starq abstractShanaroman Rogers Anderson DO Work Phone: NOMS NB ORTHOStart: 08-17-2023 End: 57-11-0844oshgjelgknXufvcllq Symone Other [employer] Other Start: 97-03-8854Fhkxysfmu for general adult medical examination without abnormal findingsBenwali NorrisG [facility] ClinicStart: 32-44-9425Wbpjrkxn preventive med est patient 40-64yrsBenwali BallFPG [facility] ClinicStart: 06-28-2023 End: 34-68-3559siwvjnaqdjJsopksjj Ball Other [employer] Other Start: 87-58-8867Jcwfmu outpatient visit 15 minutes John JrG [facility] ClinicStart: 05-06-2023 End: 44-47-6510jgfluqrogaUrspsiil Ball Other [employer] Other Start: 04-08-8159Ygecscslg encounterBenwali BallALFREDG [facility] ClinicStart: 04-26-2023 End: 95-08-4633iigqhleaclNpptglir Ball Other [employer] Other Start: 66-22-1937Dbaktgkcl encounterBenwali NorrisG [facility] ClinicStart: 04-06-2023 End: 88-38-4228Sjnmxsjve to same day surgery Domingo Yuan [facility] Start: 04-06-2023 End: 05-65-7857rdwdsaegsmEnqey A BrownFacility:FTMCStart: 03-31-2023 End: 95-50-2153rqwhamxkaoCnbrgudo Ball Other [employer] Other Start: 99-02-1405Rthvzwgdm encounterBenwali NorrisG [facility] ClinicStart: 03-26-2023 End: 10-12-7491dbkowbldqxUivteufi Ball Other [employer] Other Start: 96-73-3601Dxhiuryxb encounterBenjamin BallFPG [facility] ClinicStart: 03-24-2023 End: 20-89-1305urghgsqpcnVmcsu Sue AndersonFacility:FTMCStart: 03-24-2023 End: 65-54-1436Xmlaynh encounter procedureJordan Yuan [facility] Start: 03-21-2023 End: 84-68-7201oqhszevczgWdmxmkmw Ball Other [employer] Other Start: 18-90-1774Iahuhpulh encounterBenjamin BallFPG [facility] ClinicStart: 01-12-2023 End: 54-12-5062qrpughugtzWyecercj Ball Other [employer] Other Start: 85-53-1654Unoyyosqc encounterBenjamin BallFPG [facility] ClinicStart: 01-10-2023 End: 39-35-4720tpxydforypYtvzufbm Ball Other [employer] Other Start: 88-29-5219Cvnsuu outpatient visit 15 minutes John BallFPG [facility] ClinicStart: 12-14-2022 End: 86-95-4553uanbhgwjqyTgepdssu Ball Other [employer] Other Start: 42-93-0764Ztasdifjl encounterBenjamin BallFPG [facility] ClinicStart: 12-10-2022 End: 89-99-0660hsmdvieonzQghdzpjf Ball Other [employer] Other Start: 58-45-2438Twclghfbh encounterBenjamin BallFPG [facility] ClinicStart: 12-09-2022 End: 61-89-7884jqhizyuqkdHyyahtfv Ball Other [employer] Other Start: 15-71-2655Lcgbah outpatient visit 15 minutes John BallFPG [facility] ClinicStart: 11-09-2022 End: 15-20-8265zxwqkgjajzGceapdyj Ball Other [employer] Other Start: 90-04-1845Wkipab outpatient visit 15 minutes John BallFPG [facility] ClinicStart: 44-63-4022tugdrcegxlJBDKKCEWYYFN LAKSHMIPATHY .Facility:E7Ipwlz: 10-07-2022 End: 28-00-2281luuwnebzueDKMZZOLXFKOH LAKSHMIPATHY .Facility:K7Nchua: 09-22-2022 End: 58-65-3725diejjhyllrOxqugemf Ball Other [employer] Other Start: 46-31-7993Bpnfgfcbz encounterBenjamin BallFPG [facility] ClinicStart: 09-16-2022 End: 36-09-2579hrllgblahpZX JOHN BALLFacility:B4Dqfjk: 08-14-2022 End: 68-55-3248mhqiwcrvnwYzfptabw Ball Other [employer] Other Start: 38-75-3846Jfvykojph encounterBenjamin BallFPG [facility] ClinicStart: 07-26-2022 End: 63-63-6087lhietgzcraKtpxncpf Ball Other [employer] Other Start: 35-53-5056Yuxtwz outpatient visit 15 minutes John BallFPG [facility] ClinicStart: 28-73-1355Dlewpd wellness visit John Ashby Other [employer] Other Start: 65-14-3300Syuphsi encounter procedureBenjamin Ball Other [employer] Other Start: 07-09-2022 End: 41-45-7094sjkoxblldaPE JOHN ASHBYFacility:Y1Fqqam: 95-07-0789Trsaa health examinationBenjarosa Ashby Other [facility] [employer] Other Start: 92-73-6171Eevwchuqblnbv examination normal John Ashby Other [facility] [employer] Other Start: 2022 End: 28-16-9465ojthqwebbwMZ JOHN ASHBYFacility:T7Jybwr: 06-01-2022 End: 76-53-9504ksstwmldghRK JOHN ASHBYFacility:H3Yyqow: 62-82-0857Lztoqoiip for general adult medical examination without abnormal findingsDR JOHN ASHBY [facility] Centertart: 05-20-2022 End: 71-59-4680pbxljhkcqaUP JOHN ASHBYFacility:O5Kklsm: 05-20-2022 End: 14-65-9846Jtqirutpt for general adult medical examination without abnormal findingsDR JOHN ASHBYFacility:N1Vbqzn: 05-20-2022 End: 98-86-7170rkfoyhabuqPS JOHN ASHBYFacility:I9Fppgp: 18-08-8195qkdyeoxscb KATE BOESFacility:L9Fvgws: 02-17-2022 End: 38-35-1344clohvfbxtnRCYI OLIVAS .Facility:U2Fnbqa: 02-16-2022 End: 62-46-1584lsqgpoyreoTZ SO S AMOS .Facility:I6Vrtmo: 02-02-2022 End: 94-33-8836pkepthdueyMW SO S AMOS .Facility:H2Tofsl: 12-24-2021 ambulatoryMELISSA BOESFacility:W6Qktru: 10-22-2021 End: 44-30-5907licwxxeupoRWAN OLIVAS .Facility:T5Gnwwz: 03-12-2020 End: 85-37-0092Jupdukd encounter procedureNABIL EBRAHEIMFacility:UTMCStart: 03-05-2020 End: 85-83-3967Sygbbbg encounter procedureNABIL EBRAHEIMFacility:UTMCStart: 10-20-2017 End: 78-87-9910KyaehiwegwODPutnam County Memorial Hospitaltart: 10-13-2017 End: 60-19-8524DokszwuxofCVLee's Summit Hospital Procedures DateProcedureProcedure DetailPerforming ClinicianStart: 69-62-6584Neglp shoulder complete minimum 2 viewsJason A Brown DO Work Phone: Start: 02-23-3961Ksqis X-ray of right shoulderBenjamin Ball DO Work Phone: Start: 56-11-0127Vtwts X-ray of right shoulderBenjamin Ball DO Work Phone: Start: 50-15-1356Lytjt X-ray of left shoulderBenjamin Ball DO Work Phone: Start: 07-03-1611Hvysazeinostja aspir&/inj major jt/bursa w/usJason A Brown DO Work Phone: Start: 11-94-7365Xviis shoulder complete minimum 2 viewsJason A Brown DO Work Phone: Start: 28-56-2539Gropztimlba of shoulderJason Brown Start: 71-44-8671Osuro shoulder complete minimum 2 viewsJason A Brown DO Work Phone: Start: 08-58-3403AH UPPER EXTREMITY W/O CONTRAST RIGHT Jordan A Brown DO Work Phone: Start: 36-29-3581GPLR LAB MISCELLANEOUS-LCJason A Brown DO Work Phone: Start: 27-48-0323Dulir shoulder complete minimum 2 viewsJason A Brown DO Work Phone: Start: 01-26-2886Acmkp shoulder replacementJason [employer] Start: 84-34-3330LXZZMS KNEE AREA SURGERYCOLLEEN LANCZ Start: 24-92-9350ZYB BONE 20 SQ CM/<MARYURI EBRAHEIMStart: 86-14-3313REUIKDVKZ OF FIBULA FRACTURENABIL EBRAHEIMStart: 83-73-8883YKXKF OXIMETRY, CONTINUOUSBO BASIM Start: 59-21-7026WYQNL OXIMETRY, CONTINUOUSBO YOOStart: 22-83-4694COHWVBQCO PATIENTBO YOOStart: 57-33-4586DOCQXUK STATUS (DIRECT)BARRY YOOStart: 10-21-2017 PULSE OXIMETRY, CONTINUOUSBO YOOStart: 49-26-1523XEFEYTTI OXYGEN THERAPY PROTOCOLBO YOOStart: 24-99-0531CQMJW OXIMETRY, CONTINUOUSBO YOOStart: 10-21-2017 DIET CLEAR LIQUIDBO YOOStart: 61-18-8114WTMYF OXIMETRY, CONTINUOUSBO YOOStart: 04-94-9646TFBVP WEIGHTSBO YOOStart: 89-83-3721BSRPQG AND OUTPUTBO YOOStart: 10-77-5546ELZCU OXIMETRY, CONTINUOUSBO YOOStart: 61-76-4207RFMDJ OXIMETRY, CONTINUOUSBO YOOStart: 91-49-7931XTVJP OXIMETRY, CONTINUOUSBO YOOStart: 16-61-5186XISMX INTERMITTENT PNEUMATIC COMPRESSION DEVICEBO YOOStart: 10-20-2017 ACTIVITY TOLERATEDBO YOOStart: 18-60-1743DYRYLRL DIET TOLERATED (NURSING COMMUNICATION)BARRY YOOStart: 25-31-7054QACDNDRT PATIENTBO YOOStart: 10-20-2017 ELEVATE HOBBO YOOStart: 88-48-3227MSVJ CODEBO YOOStart: 77-98-7419FBTCJUQO OXYGEN THERAPY PROTOCOLBO YOOStart: 64-88-5643AQFGHE AND OUTPUTBO YOOStart: 65-29-3079MQLXR/VASCULAR CHECKSBO YOOStart: 85-43-7161AQLDNBG COMMUNICATIONBO YOOStart: 02-54-2127JUAHK CERVICAL COLLARBO YOOStart: 68-39-3580QICFC OXIMETRY, CONTINUOUSBO YOOStart: 90-01-8490MHGVBHWJC MONITORINGBO YOOStart: 10-20-2017 TOBACCO CESSATION EDUCATIONBO YOOStart: 80-66-6889HEYJY SIGNSBO YOOStart: 37-13-8504FIFPFOV STATUS (FROM ED OR OR/PROCEDURAL)BARRY YOOStart: 10-20-2017 TELEMETRY MONITORINGBO YOOStart: 39-63-3141SLQNSB FOR SURGICAL PROCEDURESBO BASIM Start: 71-11-8580Rcnngsvree pulse oximetryBO YOOStart: 39-67-2985DZTOVPIWN DEEP BREATHING AND COUGHINGBO YOOStart: 28-56-0371VNQMW YOOStart: 12-49-2284RVVUP RT REFLEX TO CULTUREBO YOOStart: 33-64-1521PAJW AND SCREENBO YOOStart: 10-13-2017 APTTBO YOOStart: 59-08-0174TOMJU METABOLIC PANELBO YOOStart: 10-13-2017 PROTIME-INRBO YOOStart: 55-11-8948XDWC SCREENING CULTURE ONLYBO YOOStart: 92-03-5672ZHD 12-LEADBO YOOStart: 64-61-8298Ewtfrss examination of patient John Ashby Other Amputation [...] shoulder replacement, right Expected: 05/13/2025 (Approximate), Expires: 05/13/2026[facility] HealthcareComment on above:Expected: 05/13/2025 (Approximate), Expires: 05/13/2026Start: 05-13-2025 End: 60-66-2825BRE W Auto Differential panel - BloodCBC auto differential Lab Routine Hx of total shoulder replacement, right Expected: 05/13/2025 (Appr oximate), Expires: 05/13/2026[facility] Work Phone: Comment on above:Expected: 05/13/2025 (Approximate), Expires: 05/13/2026Start: 05-13-2025 End: 88-09-3499Ftzeadruicm sedimentation rateSedimentation rate, automated Lab Routine Hx of total shoulder replacement, right Expected: 05/13/2025 (Approximate), Expires: 05/13/2026[facility] HealthcareComment on above:Expected: 05/13/2025 (Approximate), Expires: 05/13/2026Start: 05-13-2025 End: 03-73-8301Exgkusyhnbl-6Interleukin-6 Lab Routine Hx of total shoulder replacement, right Expected: 05/13/2025 (Approximate), Expires: 05/13/2026[facility] HealthcareComment on above:Expected: 05/13/2025 (Approximate), Expires: 05/13/2026Start: 05-13-2025 End: 39-98-0980Ynpvjqp encounter npwovvoth65/03/2025 10:30 AM EST Office Visit [facility] [address] [facility] [place] [id number] Jordan Yuan DO [address] [place] [address] [facility]icsStart: 03-14-2025 [facility] Work Phone: Start: 54-49-1345ONGIJ-19 Vaccine ( season) COVID-19 Vaccine ( season)[facility] HealthcareStart: 33-31-5958Oxyveaykl vaccinationNOCO HealthcareStart: 68-05-3420Hohsq X-ray of left shoulderXR shoulder LT min 2V*[facility]art: 73-69-7528JF Shoulder - left ViewsSelect Medical Specialty Hospital [facility] Southtart: 10-04-2024 End: 81-16-6585Fjvmosa encounter /27/2025 2:45 PM EDT Office Visit [facility] [address] [place] [facility] [place] [address] Brown, Jordan A, DO [address] [place] [place] [address] [facility] NB ORTHOComment on above:ArrivedStart: 09-18-2024 End: 73-98-9474Iovefff encounter jbhqradsn61/11/2025 10:00 AM EDT Office Visit [facility] [address] [address] Jordan Yuan, DO [address] [place] [address] [facility]OStart: 07-17-2024 End: 81-44-0731Truuglg encounter mahnkxtjb51/07/2025 2:45 PM EST Office Visit [facility] [address] [place] [address] Jordan Yuan, DO [address] [place] [address] [facility] NB ORTHOComment on above:ArrivedStart: 2024 Screening for malignant neoplasm of colonNOMS HealthcareStart: 06-05-2024 End: 72-15-6726Kjypdjf encounter flcwanthm52/26/2024 9:15 AM EST Office Visit [facility] [address] [place] [address] Jordan Yuan, DO [address] [place] [address] [facility] ORTHOStart: 05-08-2024 End: 67-03-4070Yocbexc encounter [email or web address]/29/2024 10:45 AM EDT Office Visit [facility] [address] [place] [address] Jordan Yuan, DO [address] [place] [address] [facility] NB ORTHOStart: 80-62-3725Aegvzvyql vaccinationInfluenza Vaccine (#1)[facility] HealthcareStart: 10-04-2023 End: 81-04-3062Cyuyqvy encounter tpptighrn04/26/2024 3:45 PM EDT Office Visit [facility] [address] [place] [address] Jordan Yuan, DO [address] [place] [address] [facility] ORTHOStart: 08-18-2023 End: 84-30-2698Mwfeuzi encounter xmjdcjeqh72/08/2024 3:45 PM EST Office Visit [facility] [address] [place] [id number] Jordan Yuan, DO [address] [place] [address] [facility]: 08-18-2023 End: 08-18-2024 reactive protein [Mass/volume] in Serum or PlasmaC-reactive protein Lab Routine Right shoulder pain, unspecified chronicity Expected: 08/18/2023 (Approximate), Expires: 08/18/2024[facility] HealthcareComment on above: Expected: 08/18/2023 (Approximate), Expires: 08/18/2024Start: 08-18-2023 End: 09-80-5571LYU W Auto Differential panel - BloodCBC auto differential Lab Routine Right shoulder pain, unspecified chronicity Expected: 08/18/2023 ( Approximate), Expires: 08/18/2024[facility] Work Phone: Comment on above:Expected: 08/18/2023 (Approximate), Expires: 08/18/2024Start: 08-18-2023 End: 66-04-0187Gvxkkuaqlpx sedimentation rateSedimentation rate, automated Lab Routine Right shoulder pain, unspecified chronicity Expected: 08/18/2023 (Approximate), Expires: 08/18/2024[facility] HealthcareComment on above:Expected: 08/18/2023 (Approximate), Expires: 08/18/2024Start: 08-18-2023 End: 79-94-2874Zhjxbefavxm-6Interleukin-6 Lab Routine Right shoulder pain, unspecified chronicity Expected: 08/18/2023 (Approximate), Expires: 08/18/2024 [facility] HealthcareComment on above:Expected: 08/18/2023 (Approximate), Expires: 08/18/2024Start: 76-65-2278Szowqotnt for malignant neoplasm of breastMammogram [facility] HealthcareStart: 73-11-1877Dorcchxqx for malignant neoplasm of cervixNOMS HealthcareStart: 13-95-3337Dhnmjrvzf for malignant neoplasm of cervixPap Smear [facility] HealthcareStart: 69-45-6842Hpcqivsxq for malignant neoplasm of colonN[facility]S HealthcareComprehensive metabolic 1999 panel - Serum or [facility] CincinnatiPatient EducationShoulder [facility] Work Phone: [facility] Work Phone: Renal function 1999 panel - Serum or [facility] CincinnatiUS Heart TransthoracicUniversity Hospitals Geneva Medical CenterUS Kidney - bilateralUniversity Hospitals Geneva Medical CenterXR Chest 2 ViewsNorthridge Hospital Medical Center Immunizations Immunization DateImmunizationNotesCare OrqzkthhWuytdial58-19-0136tcdyelodh virus vaccine, unspecified formulationJordan Yuan DO Work Phone: [facility] CenterZyfbkmubqf49-08-5559onqxfmm and diphtheria toxoids, adsorbed, preservative free, for adult use (5 Lf of tetanus toxoid and 2 Lf of diphtheria toxoid)John Ashby Other [facility] Payers DatePayer CategoryPayerPolicy [id number] Health [id number] (Managed Care) [id number] [id number] 11-49-1926Gbyutsx Health Cmtsqrozs51-34-3595[place] [employer] Blue Shield 1.2.840.296234.1.13.693.2.7.9.534946.709848.90844-74-3041Qjudlei 1.2.840.994297.1.13.693.2.7.3.337234.18364-96-4457Scfu [place] Blue Shield [id number] 2.16.840.3.342957.672019 2020Medicare 1.2.840.341340.1.13.693.2.7.3.69988[id number] [id number] 2.16.840.1.335004.3.579.2.[id number] 2.16.840.1.386645.3.57[id number] 2.16.840.1.873032.3.579.2.41304-95-0273Ikinwgm3063576 2.16.840.1.842906.3.579.2.46200-42-4880Qvjvram6044660 2.16.840.1.246001.3.579.2.58980-61-6830Ozigwms3259620 2.16.840.1.216594.3.579.2.44873-45-9209Sxnbika9425715 2.16.840.1.327793.3.579.2.64492-14-5692Tygzcfk8033771 2.16.840.1.779605.3.579.2.43610-48-0614Vrtdanq5724360 2.16.840.1.488931.3.579.2.38109-46-5126Waiebxl1995670 2.16.840.1.578235.3.579.2.10194-95-3958Azrbjsv9222998 2.16.840.1.469756.3.579.2.19432-03-8610Okxogiz4806136 2.16.840.1.637925.3.579.2.58544-57-7255Xhbetff9238895 2.16.840.1.439188.3.579.2.51077-49-4918Julebet3523588 2.16.840.1.675318.3.579.2.97630-70-1765Cblntbu7310097 2.16.840.1.106446.3.579.2.31001-39-8078Apgzkun4582175 2.16.840.1.586230.3.579.2.64368-13-2773Chnfjej2818613 2.16.840.1.177304.3.579.2.94384-87-2043Sggehdd4048784 2.16.840.1.945057.3.579.2.89903-33-7196Bhgdwlk0833327 2.16.840.1.903301.3.579.2.08757-36-2335Abzjbpi43979849 2.16.840.1.856260.3.579.2.41973-18-4026Lmbzqdx37344581 2.16.840.1.174704.3.579.2.81951-34-7853Bjoixvi11843228 2.16.840.1.942950.3.579.2.23943-53-5589Gkrkrqj26402017 2.16.840.1.041576.3.579.2.99925-00-5130Akkfquf58082434 2.16.840.1.205215.3.579.2.91447-87-6114Vvaxddc12934075 2.16.840.1.668086.3.579.2.18616-16-6290Omomact35405623 2.16.840.1.544101.3.579.2.61202-18-0789Jltdqfp162352066 2.16.840.1.601357.3.579.2.97250-29-2082Zaikwzb015870881 2.16.840.1.921562.3.579.2.99458-14-0167Egqgppx381076550 2.16.840.1.592177.3.579.2.75969-02-4768Xzjntea230830830 2.16.840.1.514732.3.579.2.52343-44-7816Ipirmwt61602945 2.16.840.1.907942.3.579.2.670640-63-6462Wzelwus95656738 2.16.840.1.284006.3.579.2.372300-86-6907Cjkmmxa85043129 2.16.840.1.210818.3.579.2.817021-15-5446Qisupbn2034583 2.16.840.1.129719.3.579.2.993765-61-7425Mhsahtj4427279 2.16.840.1.775171.3.579.2.023686-33-3779Ymhajfd6933708 2.16.840.1.497801.3.579.2.142929-96-5824Ennipci1726208 2.16.840.1.707212.3.579.2.1259 [id number] 1960Self-pay 3[id number]8-71-9515ZjhpmqzMWNJU5055315Zhwpcyl46895649 .16.840.1.659625.3.579.2.717Dpvotqa44053324 .16.840.1.404981.3.579.2.531 Social History DateTypeDetailFacilityUnknown if ever smokedNosaint joseph health center Inline.me Other Start: 07-21-2023 End: 87-85-3970Jma [facility] HospitalTobacco smoking statusNo Smoking Status [facility] Hamiltontart: 05-24-2023 End: 07-58-5950Dungeje smoking status NHISEx-smokerNOMS HealthcareStart: 04-10-1981 End: 74-93-7083Cdbmiez of tobacco useCurrent smokerNOMS HealthcareStart: 04-10-1981 End: 69-59-7966Xqhmlve of tobacco useCigarette SmokerNOMS HealthcareStart: 05-24-2023 End: 90-37-1367Zidawcp use and exposureSmokeless tobacco non-userNOMS Healthcare Start: 07-21-2023 End: 10-74-0840Vhklamk intakeCurrent drinker of alcohol (finding)[facility] Start: 07-21-2023 End: 27-96-4401Ixqrhtx of Social functionNOMS HealthcareHow often to you have a drink containing alcohol?Monthly or lessNOMS HealthcareHow many standard drinks containing alcohol do you have on a typical day?1 or 2N[facility]S HealthcareHow often do you have 6 or more drinks on 1 occasion?WeeklyNOMS HealthcareStart: 23-39-2553Twnysgc Commentcaffiene 1-2 cups dailyNOMS HealthcareStart: 1960 Sex Assigned At BirthNot on fileS[facility] HealthcareStart: 65-67-2191Jfq Assigned At [facility] Daytontart: 97-92-6230Dewyorl Number of DrinksNot on fileSALT LAKE REGIONAL MEDICAL [facility]ENTER HealthcareStart: 08-29-2024 End: 13-99-8136VqvCrizfn (finding)[facility] Medical Equipment Procedure CodeEquipment CodeEquipment Original TextEquipment IdentifierDates SHOULDER TOTAL ARTHROPLASTY Jordan Yuan DO 04/06/23 Unknown Shoulder RFDA Start: 38-07-1139LGSOIHTZ TOTAL ARTHROPLASTY Jordan Yuan DO 04/06/23 Unknown Shoulder RFDAStart: 54-00-9477IZCKGNGM TOTAL ARTHROPLASTY Jordan Yuan DO 04/06/23 Unknown Shoulder RFDAStart: 79-57-2488OUOPGIVM TOTAL ARTHROPLASTY Jordan Yuan DO 04/06/23 Unknown Shoulder RFDAStart: 62-34-3674TEKTRIUD TOTAL ARTHROPLASTY Jordan Yuan DO 04/06/23 Unknown Shoulder RFDAStart: 04-06-2023 SHOULDER TOTAL ARTHROPLASTY Jordan Yuan DO 04/06/23 Unknown Shoulder RFDA Start: 90-87-7936VWQVXNVF TOTAL ARTHROPLASTY Jordan Yuan DO 04/06/23 Unknown Shoulder RFDAStart: 98-07-0476SESVWCRH TOTAL ARTHROPLASTY Jordan Yuan DO 04/06/23 Unknown Shoulder RFDAStart: 80-22-5439HTGEAKWT TOTAL ARTHROPLASTY Jordan Yuan DO 04/06/23 Unknown Shoulder RFDAStart: 34-02-2401NQZCZDQU TOTAL ARTHROPLASTY Jordan Yuan DO 04/06/23 Unknown Shoulder RFDAStart: 04-06-2023 SHOULDER TOTAL ARTHROPLASTY Jordan Yuan DO 04/06/23 Unknown Shoulder RFDA Start: 21-54-6855HMWMJEQV TOTAL ARTHROPLASTY Jordan Yuan DO 04/06/23 Unknown Shoulder RFDAStart: 06-51-6777DUHIHRXB TOTAL ARTHROPLASTY Jordan Yuan DO 04/06/23 Unknown Shoulder RFDAStart: 80-64-7354IHNRLRPN TOTAL ARTHROPLASTY Jordan Yuan DO 04/06/23 Unknown Shoulder RFDAStart: 12-67-6860BOPJRKLB TOTAL ARTHROPLASTY Jordan Yuan DO 04/06/23 Unknown Shoulder RFDAStart: 04-06-2023 SHOULDER TOTAL ARTHROPLASTY Jordan Yuan DO 04/06/23 Unknown Shoulder RFDA Start: 19-51-6618ARENVOZU TOTAL ARTHROPLASTY Jordan Yuan DO 04/06/23 Unknown Shoulder RFDAStart: 26-80-8851UFAFOMDD TOTAL ARTHROPLASTY Jordan Yuan DO 04/06/23 Unknown Shoulder RFDAStart: 86-90-7058NSGNOHIG TOTAL ARTHROPLASTY Jordan Yuan DO 04/06/23 Unknown Shoulder RFDAStart: 72-20-1422ZRLGVEEC TOTAL ARTHROPLASTY Jordan Yuan DO 04/06/23 Unknown Shoulder RFDAStart: 04-06-2023 SHOULDER TOTAL ARTHROPLASTY Jordan Yuan DO 04/06/23 Unknown Shoulder RFDA Start: 23-98-0200IAQYUIEH TOTAL ARTHROPLASTY Jordan Yuan DO 04/06/23 Unknown Shoulder RFDAStart: 89-28-4575PWISWTSU TOTAL ARTHROPLASTY Jordan Yuan DO 04/06/23 Unknown Shoulder RFDAStart: 52-87-3813FTVTAZGR TOTAL ARTHROPLASTY Jordan Yuan DO 04/06/23 Unknown Shoulder RFDAStart: 42-60-1298SIUXCIDE TOTAL ARTHROPLASTY Jordan Yuan DO 04/06/23 Unknown Shoulder RFDAStart: 04-06-2023 SHOULDER TOTAL ARTHROPLASTY Jordan Yuan DO 04/06/23 Unknown Shoulder RFDA Start: 01-23-0432ONOAJJHI TOTAL ARTHROPLASTY Jordan Yuan DO 04/06/23 Unknown Shoulder RFDAStart: 78-46-3807NHFTZZDN TOTAL ARTHROPLASTY Jordan Yuan DO 04/06/23 Unknown Shoulder RFDAStart: 41-94-0284UHUUAJVV TOTAL ARTHROPLASTY Jrodan Yuan DO 04/06/23 Unknown Shoulder RFDAStart: 58-91-9070YAPUIAPT TOTAL ARTHROPLASTY Jordan Yuan DO 04/06/23 Unknown Shoulder RFDAStart: 04-06-2023 SHOULDER TOTAL ARTHROPLASTY Jordan Yuan DO 04/06/23 Unknown Shoulder RFDA Start: 23-15-8883VZONZVZY TOTAL ARTHROPLASTY Jordan Yuan DO 04/06/23 Unknown Shoulder RFDAStart: 26-03-5760WJOQEAPV TOTAL ARTHROPLASTY Jordan Yuan DO 04/06/23 Unknown Shoulder RFDAStart: 32-78-5693PKTZSMMX TOTAL ARTHROPLASTY Jordan Yuan DO 04/06/23 Unknown Shoulder RFDAStart: 54-83-8241UUWZSNDX TOTAL ARTHROPLASTY Jordan Yuan DO 04/06/23 Unknown Shoulder RFDAStart: 04-06-2023 SHOULDER TOTAL ARTHROPLASTY Jordan Yuan DO 04/06/23 Unknown Shoulder RFDA Start: 59-44-0715NBIODKNF ARTHROSCOPY W/ POSSIBLE REPAIR Jordan Yuan DO 04/27/24 Non Biological Shoulder L{01}[id number]{17}[id number]{10}[id number] [facility] Start: 04-27-2024 Functional Status AkgtNfmonedvkpEwyshbHnzkmxou09-57-9088Pvrqgkobsg StatusWVUMedicine [facility]09-14-2023Functional StatusPro[facility]ant [facility] Clinical Notes 05-29-2018 to 05-13-2025 Note Date & RasxBhazRklsbnpt51-89-9254 History of Present illness Narrative* Jordan Yuan DO - 05/13/2025 10:30 AM EST Images from the original note were not included. @WacaiTE@ [employer] Levy Zaidi is a 64 y.o. female [...] tablet citalopram (CeleXA) 10 MG tablet HYDROcodone-acetaminophen ([place]) 5-325 MG tablet leflunomide (Arava) 10 MG [...] note was created using voice recognition through [employer]. [1] Allergies Allergen Reactions Cephalexin GI intolerance [...] daily Drug use: Never documented in [facility] encounter[facility] CenterVbdlcurtxa40-50-2009 Chief complaint+Reason for visit Narrative* Chief Complaint Admit Date Itchy w/ no Rash March 06, 2025 9: 17am Referral Order March 14, 2025 9:00pm Reason for Visit Admit Date Chronic kidney disease March 06, 2025 9:17am Heart failure with improved ejection fra ction (HFimpEF) March 06, 2025 9:17am Nonischemic cardiomyopathy March 06, 2025 9:17am Pruritus March 06, 2025 9: 17am [facility] Work Phone: 1(225) 517-906608-27-2025 Chief complaint+Reason for visit Narrative * Chief [...] 9:17am Pruritus March 06, 2025 9: 17am [facility] Work Phone: 1(319) 728-674608-27-2025 Evaluation note* Diagnosis Onset Date Resolution Status Admit Date Chronic kidney disease acuteAugust 2024 9:17amHeart failure with improved ejection fraction (HFimpEF)acuteAugust 2024 9:17amNonischemic cardiomyopathyacuteAugust 2024 9:17amPruritusacuteAugust 2024 9:17am [facility] Work Phone: 1(321) 670-573206-02-2025 NoteUT Cardiology - [facility] Subjective Radha Zaidi is a [...] the past she was admitted to [facility] with pneumonia and empyema, underwent chest [...] mouth if needed., Disp: , Rfl: HYDROcodone-acetaminophen ([place]) 5-325 mg tablet, TAKE 1 TABLET BY [...] [address] feliz (more content not included)...[facility]03-27-2025 History of Present illness Narrative* Jordan [...] tablet citalopram (CeleXA) 10 MG tablet HYDROcodone-acetaminophen ([place]) 5-325 MG tablet leflunomide (Arava) 10 MG [...] Results Imaging [facility] of the left shoulder [facility] 09/28/2024 report and images reviewed. ASSESSMENT AND [...] about this procedure. We will utilize the Taomeenier shoulder arthroplasty platform and obtain a CT [...] note was created using voice recognition through [employer]. documented in this encounterMercy [facility], formerly [facility] CenterNpcitnirxt05-76-9858 History of Present illness Narrative* Jordan Yuan DO - 09/18/2024 10:00 AM EDT Images from the original note were not included. @LORAINE@ [employer] Levy Zaidi is a 64 y.o. female [...] tablet citalopram (CeleXA) 10 MG tablet HYDROcodone-acetaminophen ([place]) 5-325 MG tablet leflunomide (Arava) 10 MG [...] note was created using voice recognition through [employer] artificial intelligence. documented in this encounterMercy Hospital [facility], formerly [facility] CenterRpexgnxhhj45-92-3963 Evaluation note* Diagnosis Onset Date Resolution Status Admit Date Chronic kidney disease acuteFebruary 2024 3:15pmEssential hypertensionacuteFebruary 2024 3:15pmHeart failure with improved ejection fraction (HFimpEF)acuteFebruary 2024 3:15pmNonischemic cardiomyopathyacuteFebruary 2024 3:15pmPernicious anemiaacuteFebruary 2024 3:15pmPSVT (paroxysmal supraventricular tachycardia)acuteFebruary 2024 3:15pmScreening mammogram for breast cancer acuteFebruary 2024 3:15pmWellness examinationacuteFebruary 2024 3:15pmEncounter for screening for malignant neoplasm of colonnoneactiveFebruary 2024 3:15pmAnemia of renal diseaseacuteK[facility] Institute [facility] Rehabilitationch 2024 10:33amChronic kidney disease, stage 3bacuteMar 2024 10:33amHypertensive nephropathy acuteThe [facility] 2024 10:33amRheumatoid arthritisacuteKessler Institute For Rehabilitationch 2024 10:33am [facility] Work Phone: 1(390) 451-783102-19-2025 Evaluation note* Diagnosis Onset Date Resolution Status Admit Date Chronic kidney disease acuteFebruary 2024 3:15pmEssential hypertensionacuteFebruary 2024 3:15pmHeart failure with improved ejection fraction (HFimpEF)acuteFebruary 2024 3:15pmNonischemic cardiomyopathyacuteFebruary 2024 3:15pmPernicious anemiaacuteFebruary 2024 3:15pmPSVT (paroxysmal supraventricular tachycardia)acuteFebruary 2024 3:15pmScreening mammogram for breast cancer acuteFebruary 2024 3:15pmWellness examinationacuteFebruary 2024 3:15pmEncounter for screening for malignant neoplasm of colonnoneactiveFebruary 2024 3:15pmAnemia of renal diseaseacuteThe [facility] 2024 10:33amChronic kidney disease, stage 3bacuteThe [facility] 2024 10:33amHypertensive nephropathy acuteThe [facility] 2024 10:33amRheumatoid arthritisacuteThe [facility] 2024 10:33am Left rotator cuff tearacuteApril 2024 1:35pmPrimary osteoarthritis, left shoulderacuteApril 2024 1:35pm [facility] Work Phone: 1(171) 513-533601-07-2025 History of Present illness Narrative* Jordan Yuan, - 07/17/2024 2:45 PM EST Images from the original note were not included. @ENCDATE@ [employer] Levy Dyan is a 64 y.o. female [...] tablet citalopram (CeleXA) 10 MG tablet HYDROcodone-acetaminophen ([place]) 5-325 MG tablet leflunomide (Arava) 10 MG [...] note was created using voice recognition through [email or web address]. documented in this encounterMercy Hospital [facility], formerly St. [facility] CenterEqoiurzrbx71-83-3961 Evaluation note* Diagnosis Onset Date Resolution Status Admit Date Pernicious anemia acuteDecember 2023 3:25pmChronic kidney diseaseacuteFebruary 2024 3:15pmElevated transaminase levelacuteFebruary 2024 3:15pmEssential hypertensionacuteFebruary 2024 3:15pmHeart failure with improved ejection fraction (HFimpEF)acuteFebruary 2024 3:15pmNonischemic cardiomyopathyacute February 2024 3:15pmPernicious anemiaacuteFebruary 2024 3:15pmPSVT (paroxysmal supraventricular tachycardia)acuteFebruary 2024 3:15pm Screening mammogram for breast canceracuteFebruary 2024 3:15pmWellness examinationacuteFebruary 2024 3:15pm [facility] Work Phone: 1(720) 793-245111-26-2024 History of Present illness Narrative* Jordan Yuan [...] tablet citalopram (CeleXA) 10 MG tablet HYDROcodone-acetaminophen ([place]) 5-325 MG tablet TAKE 1 TABLET BY [...] with debridement Patient will start PT at [place]. [place] protocol for small to medium cuff tears will be utilized. Follow up in 6 weeks. Continue to ice the shoulder and allow sufficient time for rest during the week. There are no diagnoses linked to this encounter. Jordan Yuan D.O. Attestation This note was created using voice recognition through [employer]. * ROSEMARY Hernandez - 06/05/2024 9:15 AM ESTAssociated Order(s): L Inj/Asp: L glenohumeral Post-Procedure Diagnose(s): Status post shoulder surgery L Inj/Asp: L glenohumeral on 06/05/2024 2:26 PM Indications: pain Details: 25 G needle, ultrasound-guided Medications: 2 mL betamethasone acetate-betamethasone sodium phosphate 6 (3-3) MG/ML Consent was given by the patient. documented in this encounterMercy Hospital South, formerly [facility] CenterQiztdidnsv72-41-5880 History of Present illness Narrative* Jordan Yuan DO - 05/08/2024 10:45 AM EDT Images from the original note were not included. @CARIDADLUIS MANUELISATU@ [employer] Levy Zaidi is a 63 y.o. female [...] tablet citalopram (CeleXA) 10 MG tablet HYDROcodone-acetaminophen ([place]) 5-325 MG tablet TAKE 1 TABLET BY MOUTH 3 TIMES A DAY NEEDED FOR PAIN*MUS LAST 30 DAYS HYDROcodone-acetaminophen ([place]) 5-325 MG tablet 1-2 tablets, Oral, Every [...] for her medication will be sent to [facility] in [place]. Follow-up Return in 4 weeks for follow up. PT will be initiated at that time. Diagnoses and all orders for this visit: Status post shoulder surgery - XR shoulder 2+ views left - HYDROcodone-acetaminophen ([place]) 5-325 MG tablet; Take 1-2 tablets by mouth every 4 (four) hoursif needed (pain) for up to 7 days Jordan Yuan D.O. Attestation This note was created using voice recognition through [email or web address]. documented in this encounterMercy Hospital South, formerly St. 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 Family History: Primary malignant neoplasm of prostate Father Acute myocardial infarction Mother Procedure history: Total shoulder replacement (49780218) on 04/06/2023 at 62 Years. Cervical laminectomy (0040249212). Amputation of finger (385120670). Removal of lung, Partial (37318). Open reduction and internal fixation of fracture Leg (532606486). Foot surgery (4991004529). Lumbar discectomy (052228748). Social History Social & Psychosocial Habits Alcohol [...] Signs (last 24 hrs) Last Charted Temp Kkjzogwq84.5 DegC (APR 27:22) Heart Rate Qajdajncs65 bpm (APR 27:23) GHB028 mmHg (APR 27:23) DBP70 mmHg (APR 27:23) [...] Auto 55.1 % Lymph Auto 20.4 % [place] Auto 19.5 % HI Eos Auto 3.7 % Basophil Auto 1.3 % Neutro Absolute 2.4 E9/L Lymph Absolute 0.9 E9/L LOW [place] Absolute 0.8 E9/L Eos Absolute 0.2 E9/L Basophil Absolute 0.1 E9/L . Plan [place] [employer] Anesthesiologists (ASA) physical status classification: Class III. Anesthetic Preoperative Plan: Anesthesia General. Regional Interscalene block.Addendum by Wm Bajwa MD on April 27, 2024 8:55 [facility] 10-18-2024 Hospital Discharge instructions Patient Education 04/27/2024 10:08:37 Shoulder Cryocuff Patient Instructions - FT (CUSTOM) 04/27/2024 10:08:34 Post Op Patient Instructions - FT (CUSTOM) 04/27/2024 07:48:25 Iris Yuan - After Your Shoulder Arthroscopy (Custom) [place], [place] [facility] AFTER YOUR SHOULDER ARTHROSCOPY [...] your appointment. Jordan Yuan, DO [facility] [address] [place] [address] Reviewed: Follow Up Care 02/23/2024 15:25:37 With:Jordan Yuan Address: [address] [place] [address]- Business (1) When:05/08/2024 10:45:00 Comments:Call for any problems.Keep scheduled appointmentAppointment has already been scheduled [facility] 10-18-2024 NoteProgress Note-Physician Patient: RADHA ZAIDI Age: 63 years Sex: Female : 1960 Associated Diagnoses: None Author: Wm Bajwa MD Postoperative Information Postoperative disposition: Postoperative disposition: To PACU. Optimetrix number: Optimetrix number [id number]. Anesthetic utilized: General. Regional: Interscalene Block. Health [...] Discharge when meets criteria ( To home ).[facility] HospitalComment on above:Result Comment: Electronically Signed By: Wm Bajwa MD\.br\Date and Time Signed: 04/27/24 10:30 EDT 04-27-2024 NotePatient Education - Text [place], [place] [facility] AFTER YOUR SHOULDER ARTHROSCOPY [...] your appointment. Jordan Yuan, DO [facility] [address] [place] [address] Reviewed: 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 Family History: Primary malignant neoplasm of prostate Father Acute myocardial infarction Mother Procedure history: Total shoulder replacement (32068955) on 04/06/2023 at 62 Years. Cervical laminectomy (4773800190). Amputation of finger (611726526). Removal of lung, Partial (34321). Open reduction and internal fixation of fracture Leg (564714470). Foot surgery (1666251075). Lumbar discectomy (883710668). Social History Social & Psychosocial H (more content not included)...[facility] HospitalComment on above:Result Comment: Electronically Signed By: Garett CHAUHAN, Wm Mistry\.br\Date and Time Signed: 04/27/24 08:55 [id number] History of Present illness Narrative* Jordan Yuan, - 11/15/2023 3:45 PM EDT Images from the original note were not included. @ENCDATE@ [employer] Levy Zaidi is a 63 y.o. female [...] tablet citalopram (CeleXA) 10 MG tablet HYDROcodone-acetaminophen ([place]) 5-325 MG tablet TAKE 1 TABLET BY [...] Jordan Yuan D.O. Attestation documented in this encounterMercy Hospital South, formerly 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 She points to the anterior aspect of the shoulder as the locationof her discomfort. SUBJECTIVE: MEDICATIONS: Current Outpatient Medications Medication Instructions aspirin 81 MG EC tablet 1 tablet, Oral, Daily buPROPion XL (Wellbutrin XL) 300 MG 24 hr tablet citalopram (CeleXA) 10 MG tablet HYDROcodone-acetaminophen ([place]) 5-325 MG tablet TAKE 1 TABLET BY [...] care. Jordan Yuan D.O. documented in [facility] encounter[facility], [facility] [id number] Evaluation note* Encounter Date Diagnosis Assessment Notes [...] Z87.39)Symptoms tolerable, continue medical treatment f/u Rheumatology [facility] Other 12-19-2023 Evaluation note* Encounter Date Diagnosis [...] prolonged illness. Jun,Immunosuppressed status (ICD-10 - D84.9) [facility] Other 09-28-2023 Evaluation + Plan noteExtracted from:Title: [...] from:Title:Fredi Basic PREAuthor:Yanick Rai DODate: 04/06/23 Plan [place] [employer] (ASA) physical status classification: Class II. Anesthetic Preoperative Plan: Anesthesia General. Regional Interscalene block.[facility]09-28-2023 Hospital Discharge instructions Patient Education 04/07/2023 07:41:33 Iris Yuan - Shoulder Replacement (Custom) [place], [place] [facility] DISCHARGE INSTRUCTIONS: SHOULDER REPLACEMENT [...] persistent vomiting. Jordan Yuan, DO [facility] [address] [place] [address] Reviewed: Follow Up Care 03/09/2023 13:56:15 With:Jordan Yuan Address: [address] [place] [address]- Business (1) When:04/19/2023 14:15:00 With:JOHN SYMONE Address: [facility] [place] [address]- Business (1) When: Unknown [facility]09-28-2023 NotePatient: RADHA ZAIDI Age: 62 years [...] 15 mg, 1 tab(s), Oral, Daily, 0 Refill(s)[facility]Comment on above:Result Comment: Electronically Signed By: Jordan Yuan DO\.br\Date and Time Signed: 04/07/23 07:42 [id number] [id number]:127 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 Suggested referral to [employer] [facility] Other 05-02-2023 Evaluation note* Encounter Date Diagnosis [...] normal BMI. Monitor BP while taking Adipex [facility] Other 03-30-2023 NoteCONSULTATION PROCEDURE DATE: 10/07/2022 PROCEDURE: [...] at least 80% reduction of pain symptoms.[facility] [id number] NoteCONSULTATION CONSULTATION DATE: 10/07/2022 ADDENDUM: On examination of the right shoulder, the patient did have a positive right sided full can test, a positive Neida's test, Apley's test and cross body test. All four positive on examination date 10/07/2022.[facility] [id number] NoteCONSULTATION CONSULTATION DATE: 10/07/2022 TO: John Ashby [...] activity modification, use of Zanaflex, Lyrica and [place]. RECOMMENDATIONS: I recommend proceeding with a right [...] right shoulder without contrast and physical therapy.[facility] [id number] Evaluation note* Encounter Date Diagnosis Assessment Notes Treatment Notes Treatment Clinical Notes Aug, Anemia (ICD-10 - D64.9) [facility] Other 01-16-2023 Evaluation note* Encounter Date Diagnosis [...] F41.1)Healthy diet, exercise w/o change in treatment [facility] Other 12-30-2022 NoteCONSULTATION PROCEDURE DATE: 07/09/2022 PREOPERATIVE [...] will be followed up in the office.[facility] [id number] NoteCONSULTATION CONSULTATION DATE: 07/09/2022 HISTORY OF PRESENT [...] possible increase in dose. She also takes [place] 5/325 t.i.d. and Zanaflex 4 mg three [...] three months' time, unless otherwise indicated. [facility] [id number] NoteCONSULTATION CONSULTATION DATE: 05/20/2022 HISTORY OF PRESENT [...] medications include Celexa, Lyrica 50 mg b.i.d., [place] 5/325 t.i.d. and Zanaflex. Patient is having [...] level of C3-4. We will refill her [place] at 5/325 t.i.d. Supportive home measures were discussed such as heat and a menthol heat rub, as well as vitamin compliance. The patient agrees to move forward with the plan, will be followed up in the clinic thereafter.[facility] [id number] NoteCONSULTATION PROCEDURE DATE: 02/17/2022 PRE AND POSTOPERATIVE [...] will be followed up in the clinic.[facility] [id number] NotePROCEDURE: XR SHOULDER RT 2V or > COMPARISON: None. HISTORY: Pain of right shoulder joint FINDINGS: BONES:No acute fracture or dislocation. Minimal degenerative changes. Cervical fusion hardware SOFT TISSUES:Negative. No visible soft tissue swelling. EFFUSION:None visible. OTHER: Negative. IMPRESSION: No acute abnormality Electronically authenticated by: VANDANA COLLINS Date: 2022-02-16 19:11[facility] [id number] NoteCONSULTATION CONSULTATION DATE: 02/02/2022 CHIEF COMPLAINT: Right [...] aggravates the pain. The patient currently takes [place] 5/325 t.i.d., wellbutrin 150 mg, Lyrica 50 [...] point tenderness along the right bicipital tendon. Mold Puller strength is maintained. IMPRESSION: Current working diagnosis [...] like to proceed. 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 Cold weather and bending bother her as well. Medications include Lyrica 75 mg t.i.d., which she has not been taking for the past two months; Celexa, [place] 5/325 t.i.d., Zanaflex and RINVOQ. She feels that her pain is managed well with her [place], but is concerned about the neuropathic pain [...] in need of a refill for her [place] today, which we will give 5/325 t.i.d. [...] in three months' time unless otherwise indicated. [facility] Signed and Approved by: JACQUIE OLIVAS . 11/12/2021 16:27:00[facility]11-19-2018 Evaluation note* Diagnosis Onset Date Resolution Status PSVT (paroxysmal supraventricular tachyc ardia) acuteHeart failure with improved ejection fraction (HFimpEF)acuteNonischemic cardiomyopathyacuteOrthostatic hypotensionMay 29, 2018acuteAnemiaacute Essential hypertensionacuteGAD (generalized anxiety disorder)acuteHeart failure with improved ejection fraction (HFimpEF)acuteNonischemic cardiomyopathyacute Preop exam for internal medicineacutePSVT (paroxysmal supraventricular tachycardia)[facility] Work Phone: [phone]) 345-429911-19-2018 Evaluation note* Diagnosis Onset Date Resolution Status Heart failure with improved ejection fra ction (HFimpEF) acuteNonischemic cardiomyopathyacuteOrthostatic hypotensionMay 29, 2018 acuteAnemiaacuteEssential hypertensionacuteGAD (generalized anxiety disorder) acuteHeart failure with improved ejection fraction (HFimpEF)acuteNonischemic cardiomyopathyacutePreop exam for internal medicineacutePSVT (paroxysmal supraventricular tachycardia)acuteRheumatoid arthritisPremier Health [facility] Work Phone: Evaluation + Plan note Future Appointments Appointment Date:04/06/2023 09:30:00 AM Scheduled Provider: Location[facility] Future Appointments Appointment Date:04/06/2024 12:00:00 PM Scheduled Provider: Location:[facility] Appointment Type:Surgery FT [facility] Evaluation noteNo InformationNoSaint [facility] Other Evaluation note* Diagnosis Right shoulder pain, unspecified chronicity- Primary documented in this encounter [facility] HealthcareEvaluation note* Diagnosis Onset Date Resolution Status Hypertension acuteOverweightacutePSVT (paroxysmal supraventricular tachycardia)[facility] Work Phone: Evaluation note* Diagnosis Onset Date Resolution Status Hypertension acuteOverweightacutePSVT (paroxysmal supraventricular tachycardia)acuteHeart failure with improved ejection fraction (HFimpEF)acuteNonischemic cardiomyopathy [facility] Work Phone: Evaluation note* Diagnosis Status post shoulder surgery- Primary Other postprocedural status documented in this encounter [facility] HealthcareEvaluation note* Diagnosis Onset Date Resolution Status Heart failure with improved ejection fra ction (HFimpEF) acuteNonischemic cardiomyopathyacuteEssential hypertensionacuteGAD (generalized anxiety disorder)acuteHeart failure with improved ejection fraction (HFimpEF) acuteNonischemic cardiomyopathyacutePreop exam for internal medicineacutePSVT (paroxysmal supraventricular tachycardia)acuteRheumatoid arthritisacuteEssential hypertensionacuteHigh risk medication useacuteNonischemic cardiomyopathyacute Pernicious anemiaacutePSVT (paroxysmal supraventricular tachycardia)[facility] Work Phone: Evaluation note* Diagnosis Status post shoulder surgery- Primary Other postprocedural status documented in this encounter [facility] HealthcareEvaluation note* Diagnosis Status post shoulder surgery- Primary Other postprocedural status documented in this encounter [facility] HealthcareEvaluation note* Diagnosis S/P arthroscopy of left shoulder- Primary documented in this encounter [facility] HealthcareEvaluation note* Diagnosis S/P arthroscopy of left shoulder- Primary documented in this encounter [facility] HealthcareEvaluation note* Diagnosis Complete tear of left rotator cuff, unspecified whether traumatic- Primary documented in this encounter [facility] HealthcareEvaluation noteNo assessment information availableMercy Memorial Hospital Work Phone: Evaluation note* Diagnosis Hx [...] Thumb fusedSurgical HistoryRight Index FingerSurgical HistoryRight Shoulder Jrsjjlsidyc40/2014Surgical HistoryRight Foot x 2Surgical HistoryLumbar Spine x 2Surgical HistoryCervical Spine x 2 Surgical HistoryHysterectomySurgical Historyrevision of external fixation device in L fibula, open approachSurgical Historytonsillectomy and adenoidectomy Surgical HistoryORIF, proximal fibulaSurgical [id number] History Lumbar qxjuxb0910/1992Surgical HistoryACDF C4-611/20Hospitalization HistorySee Above [facility] Other History general Narrative - Reported* Type [...] Thumb fusedSurgical HistoryRight Index FingerSurgical HistoryRight Shoulder Pvmxaruvzap36/2014Surgical HistoryRight Foot x 2Surgical HistoryLumbar Spine x 2Surgical HistoryCervical Spine x 2 Surgical HistoryHysterectomySurgical Historyrevision of external fixation device in L fibula, open approachSurgical Historytonsillectomy and adenoidectomy Surgical HistoryORIF, proximal fibulaSurgical FbpbsctDSU1266Zrshybni History Lumbar rmqvfw2504/1992Surgical HistoryACDF C4-611/20Surgical HistoryRight reverse total shoulder arthroplasty03/2023Hospitalization HistorySee Above [facility] Other Hospital course Narrative No data available for this section [facility] No data available for this section [facility]Hospital Discharge instructionsAmbulatory Orders* Referral to Allergy/Immunology Location: None Selected [facility] Work Phone: Hospital Discharge instructionsAdditional Instructions [...] cleared by orthopedic surgeon to take it off.[facility] Work Phone: Progress note No data available for this section [facility] HospitalReason for referral (narrative)No reason for referral information availableMercy Memorial Hospital Work Phone: Summary Purpose Family History [...] 2024 3:15pm Screening mammogram for breast cancer [facility] 2024 3:15pm Wellness examination August 29, 2024 [...] 2024 3:15pm Screening mammogram for breast cancer [facility] 2024 3:15pm Wellness examination August 29, 2024 [...] section and content) DATE CREATED AUTHOR 12/29/2017 [facility] DATE CREATED AUTHOR AUTHOR'S ORGANIZ ATION 05/13/2020 [facility] DATE CREATED AUTHOR AUTHOR'S ORGANIZ ATION 10/15/2022 [facility] DATE CREATED AUTHOR AUTHOR'S ORGANIZ ATION 03/20/2024 [facility] DATE CREATED AUTHOR AUTHOR'S ORGANIZ ATION 04/29/2024 [facility] DATE CREATED AUTHOR AUTHOR'S ORGANIZ ATION 11/21/2024 [facility] DATE CREATED AUTHOR AUTHOR'S ORGANIZ ATION 12/11/2024 [facility] DATE CREATED AUTHOR AUTHOR'S ORGANIZ ATION 03/09/2025 [facility] DATE CREATED AUTHOR AUTHOR'S ORGANIZ ATION 05/07/2025 [facility] DATE CREATED AUTHOR AUTHOR'S ORGANIZ ATION 05/18/2025 [facility] EPIC REASON FOR VISIT (unrecogniz ed section and content) ReasonCommentsFollow-upR rev TSA 04/06/23ReasonCommentsFollow-upR shoulder pain, Rev TSA 04/06/23 poss coracoid an/or accromial fx maReasonCommentsPost-opReason GzfspbpkHkzg-qkEcvydeOvjzhqczRoosae-kaYeudefNkjskclzFeqffy-upMRI [facility] 09/28/24 ReasonCommentsPain Patient Care team informatio [...] DateEnd Date John Ashby MD [address] [place] [address] PCP - [facility]Holy [facility] Hospitalnal Medicine12/23/22Team MemberRelationshipSpecialtyStart Date End Date John Ashby MD [address] [place] [address] PCP - GeneralInternal Medicine12/23/22 Team Status: Active [...] DateEnd Date John Ashby MD [address] [facility] [place] [phone] PCP - GeneralInternal Medicine12/23/22 Team Status: Inactive Member Role Status Dates John Ashby DO Primary Care Provide r, Attending Provider Active Start: April 17, 2024 End: April 17, 2024 Team Status: Inactive Member Role Status Dates John Ashby DO Primary Care Provide r, Attending Provider Active Start: May 09, 2024 End: May 09, 2024Team MemberRelationshipSpecialtyStart DateEnd Date John Ashby MD [address] [place] [phone] PCP - GeneralHoly [facility] Hospitalnal [facility]12/23/22Team MemberRelationshipSpecialtyStart Date End Date John Ashby MD [address] [facility] [place] [phone] PCP - GeneralHoly Cross Hospitalnal Medicine12/23/22Team MemberRelationshipSpecialtyStart Date End Date John Ashby MD [address] [place] [phone] PCP - GeneralInternal Medicine12/23/22Team MemberRelationshipSpecialtyStart Date End Date John Ashby MD [address] [place] [phone] PCP - GeneralInternal Medicine12/23/22 Team Status: Active [...] DateEnd Date John Ashby MD [address] [place] [phone] PCP - GeneralInternal Medicine12/23/22 Team Status: Active [...] MemberRelationshipSpecialtyStart Date End Date John Ashby [address] [place] [phone] PCP - GeneralInternal Keqytpbb35/3/25 Goals (unrecognized section and content) Goals may [...] ON THE PRIMARY CLINICAL RECORDS. [facility] [employer] [facility]. provides no warranty or guarantee of the accuracy or completeness of information in this document.
== END 2025-06-10 11:19 | disposition home or self-care (01) ==
PROVIDERS: PCP Internal Medicine; Visit Provider Orthopaedic Surgery
DX: Z96.611 Presence of right artificial shoulder joint (principal)
CPT/HCPCS: 36415; 86140

== ENCOUNTER 2025-06-10 11:29 | Outpatient (OUT) | payer MEDICARE, SELFPAY ==
--- OUTSIDE RECORDS SUMMARY | 2025-06-10 12:01 | XMS_ITS | CCD ---
Author Organization [facility] Care Team Providers Care Music Artist Name Role Phone BASIM, BARRY H. Unavailable [...] Unavailable Ball John CAMPOS Primary Care Provider [phone] Ethan Padilla DO Attending Provider Brown, Jordan [...] Attending Unavailable Sesar Arias DO Emergency Provider [phone] Sesar Arias Admitting Unavailable Sesar Arias Attending [...] ClassificationReported Allergen(s)Allergy TypeDate of OnsetReaction(s) Facility (1 source)43149,00; Translations: [Unknown]Propensity to adverse reactions (disorder)[id number] [facility] Repository (20 sources)Cephalexin; Translations: [CEPHALEXIN]Drug [id number] Work Phone: (7 sources)patient allergy list reviewed by nurse or physiciaPropensity to adverse trmgyywuh25-62-0674Hhlapmd:The Rowing Team Other (1 source)CephalexinDrug Jrdxmso54-00-5788CpllqrsobMadison Health Rep[facility] Medications Current Medications MedicationDrug Class(es)DatesSig (Normalized)Sig (Original)acetaminophen 500 mg oral tablet (12 sources)Start: 98-01-8739towi 1 tablet by mouth every four hours for pain acetaminophen (Tylenol Extra Strength) 500 MG tablet Indications: Status post shoulder surgery Take1 tablet (500 mg) by mouth every 4 (four) hours if needed for mild pain 40 tablet 05/22/2024 Activeacetaminophen 325 mg / HYDROcodone bitartrate 5 mg oral tablet (20 sources)Opioid AgonistStart: 19-27-2967vkbf 1 tablet by mouth three times daily as needed for painHydrocodone-Acetaminophen 5-325 mg tablet Active 1 TAB PO Three times daily as needed for pain 0 September 25, 2024 12:00am Complies with drug therapyStart: 63-55-2319sodh 1 tablet by mouth every twelve hours as neededHydrocodone-Acetaminophen 5-325 mg tablet Active 1 TAB PO Every 12 hours as needed September 252:00am Complies with drug therapyStart: 05-08-2024 End: 00-09-9666wgaw 1-2 tablets by mouth every four hoursHYDROcodone- acetaminophen ([place]) 5-325 MG tablet Indications: Status post shoulder surgery Take 1-2 tablets by mouth every 4 (four) hours if needed (pain) for up to 7 days 40 tablet 05/08/2024 05/15/2024 ActiveStart: 79-69-3807ojox 1 tablet by mouth every six hoursacetaminophen-hydrocodone 325 mg-5 mg oral tablet 1 tab(s), Oral, q6hr, Refill(s) 0, Pain Start Date: 03/19/24 Status: OrderedStart: 06-30-2023 HYDROcodone-acetaminophen ([place]) 5-325 MG tablet 06/30/2023 ActiveStart: 49-67-7795glpe 1 tablet by mouth three times daily as neededHYDROcodone- acetaminophen ([place]) 5-325 MG tablet TAKE 1 TABLET BY MOUTH 3 TIMES A DAY NEEDED FOR PAIN*MUS LAST 30 DAYS 06/30/2023 Activeacetaminophen 325 mg / oxyCODONE hydrochloride 5 mg oral tablet (20 sources)Opioid AgonistStart: 95-08-0820Zybqgfqt 5 mg-325 mg oral tablet See Instructions, 40 tab(s), Refill(s) 0, 1-2 tab(s) Oral q4hr, [facility]/pharmacy #[id number], 165, cm, 03/19/24 13:53:00 EDT, Height/Length Dosing, 65, kg, 03/19/24 13:53:00 EDT, Weight Dosing Start Date: 04/27/24 Status: OrderedStart: 09-07-6460Lweiyzuh 5 mg-325 mg oral tablet See Instructions, 40 tab(s), Refill(s) 0, 1-2 tab(s) Oral q4hr, [facility]/pharmacy #[id number], 160, cm, 03/25/23 6:16:00 EDT, Height/Length Dosing, 73.5, kg, 03/25/23 6:16:00 EDT, Weight Dosing Start Date: 04/06/23 Status: OrderedStart: 06-30-2018 End: 42-39-0508odow 1 tablet by mouth three times dailyOxycodone-Acetaminophen 5-325 mg Tablet Discontinued 1 TAB PO Three times daily June 30, 2018 1:00am September 27, 2023 2:54pm pain End: 02-84-3159kntv 1-2 tablets by mouth every six hoursoxyCODONE-acetaminophen (Percocet) 5-325 MG tablet TAKE 1-2 TABLETS BY MOUTH EVERY 6 HOURS 09/18/2024 Mvcgchnpfbnw57 hr buPROPion hydrochloride 300 mg extended release oral tablet (20 sources)AminoketoneStart: 93-52-3072fjaw 1 tablet by mouth once daily Bupropion Hcl 300 mg tablet extended release 24 hr Active 300 MG PO Daily 90 90 December 10, 2024 8:39am Complies with drug therapyStart: 09-22-2023 End: 16-42-5012Ndoflkaah Hcl 300 mg tablet extended release 24 hr Discontinued 0 .ROUTE .COMPLEX 90 March 20, 2024 8:35am December 10, 2024 8:40am TAKE 1 TABLET DAILY IN THE MORNINGStart: 07-05-9047pcMGMVxrv XL (Wellbutrin XL) 300 MG 24 hr tablet 03/26/2023 ActiveStart: 58-83-9687acdm 1 tablet by mouth twice dailyWellbutrin XL 300 mg/24 hours Tab-ER 300 mg = 1 tab(s), Oral, BID, Refills(s) 0, Depression Start Date: 03/24/23 Status: OrderedStart: 06-30-2018 End: 96-44-9854fvcl 1 tablet by mouth once dailyBupropion Hcl [...] mg oral capsule (3 sources)Nonsteroidal Anti-inflammatory DrugStart: 58-00-4689njft 1 capsule by mouth twice daily as needed for painCeleBREX 100 mg Cap 100 mg = 1 cap(s), Oral, BID, PRN for pain, # 60 cap(s), Refills(s) 0, Pharmacy: [facility]/pharmacy #[id number], 165, cm, 03/19/24 13:53:00 EDT, Height/Length Dosing, 65, kg, 03/19/24 13:53:00 EDT, Weight Dosing Start Date: 04/27/24 Status: OrderedStart: 30-52-2862xrnh 1 capsule by mouth twice daily as needed for painCeleBREX 100 mg Cap 100 mg = 1 cap(s), Oral, BID, PRN for pain, # 60 cap(s), Refills(s) 0, Pharmacy: [facility]/pharmacy #[id number], 160, cm, 03/25/23 6:16:00 EDT, Height/Length Dosing, 73.5, kg, 03/25/23 6:16:00 EDT, Weight Dosing Start Date: 04/06/23 Status: Orderedcephalexin 500 mg oral capsule (1 source)Cephalosporin AntibacterialStart: 04-06-2023 End: 08-83-7464snja 1 capsule by mouth every eight hoursKeflex 500 mg Cap 500 mg = 1 cap(s), Oral, q8hr, X 7 day(s), # 21 cap(s), Refills(s) 0, Pharmacy: [facility]/pharmacy #[id number], 160, cm, 03/25/23 6:16:00 EDT, Height/Length Dosing, 73.5, kg, 03/25/23 6:16:00 EDT, Weight Dosing Start Date: 04/06/23 Stop Date: 04/13/23 Status: Orderedcitalopram 10 mg oral tablet (20 sources)Serotonin Reuptake InhibitorStart: 54-42-8733Ruoiluvpbp 10 mg tablet Active 0 .ROUTE .COMPLEX July 24, 2024 8:42am TAKE 1 TABLET DAILYStart: 43-98-8849Rugaenshid 10 mg tablet Active 0 .ROUTE .[facility] July 24, 2024 7:42am TAKE 1 TABLET DAILYStart: 01-26-2024 End: 66-26-2920Qkijnwkvxo 10 mg tablet Discontinued 0 .ROUTE .[place] [id number] July 24, 2024 8:42am December 10, 2024 8:40am TAKE 1 TABLET DAILYStart: 01-26-2024 End: 51-66-4763Ztqlvonkbz 10 mg tablet Discontinued 0 .ROUTE .[place] January 26, 2024 8:54am July 2458:42am TAKE 1 TABLET DAILYStart: 01-26-2024 End: 52-35-4190Qipegbpbop 10 mg tablet Discontinued 0 .ROUTE .[place] [address] January 26, 2024 7:54am July 2457:42am TAKE 1 TABLET DAILYStart: 01-26-2024 Citalopram Active 0 .ROUTE .[facility] January 26, 2024 8:54am TAKE 1 TABLET DAILYStart: 08-17-2023 End: 93-67-4071gjnpodvvyt (CeleXA) 10 MG tablet 08/17/2023 ActiveStart: 06-30-2018 End: 04-98-9172yuhu 1 tablet by mouth once dailyCitalopram 20 mg Tablet Discontinued 20 MG PO Daily June 30, 2018 1:00am September 27, 2023 2:50pm depressiontake 1 tablet by mouth every twenty-four hoursCitalopram Hydrobromide 10 MG 1 tablet Orally Once a day Activedocusate sodium 100 mg oral capsule (3 sources)Start: 78-25-1485sxcu 1 capsule by mouth twice daily as needed for constipationColace 100 mg Cap 100 mg = 1 cap(s), Oral, BID, PRN for constipation, # 20 cap(s), Refills(s) 0, Pharmacy: [facility]/pharmacy #[id number], 165, cm, 03/19/24 13:53:00 EDT, Height/Length Dosing, 65, kg, 03/19/24 13:53:00 EDT, Weight Dosing Start Date: 04/27/24 Status: OrderedStart: 55-61-5205hsar 1 capsule by mouth twice daily as needed for constipationColace 100 mg Cap 100 mg = 1 cap(s), Oral, BID, PRN for constipation, # 20 cap(s), Refills(s) 0, Pha rmacy: [facility]/pharmacy #[id number], 160, cm, 03/25/23 6:16:00 EDT, Height/Length Dosing, 73.5, kg, 03/25/23 6:16:00 EDT, Weight Dosing Start Date: 04/06/23 Status: Orderedleflunomide 10 mg oral tablet (20 sources)Antirheumatic AgentStart: 06-30-2018 End: 17-51-7950pwfy 1 tablet by mouth once dailyLeflunomide (Arava) 10 mg tablet Active 10 MG PO Daily September 27, 2023 12:00am Complies with drug therapy lidocaine 0.05 mg/mg medicated patch (8 sources)Antiarrhythmic, Amide Local AnestheticStart: 06-13-2024 End: 16-25-0245dbgyl 1 dose transdermal route every twelve hours, then apply 1 dose transdermal route every twelvehourslidocaine (Lidoderm) 5 % patch Indications: Bilateral shoulder pain, unspecified chronicity Apply 1patch over 12 hours topically Daily Remove & discard patch within 12 hours or as directed by . 30 patch 5 06/13/2024 12/10/2024 Mnisbd11 hr metoprolol succinate 100 mg extended release oral tablet (20 sources)beta-Adrenergic BlockerStart: 62-17-4065qibu 1 tablet by mouth once dailyMetoprolol Succinate 100 mg tablet extended release 24 hr Active 100 MG PO Daily September 27, 2023 12:00am Complies with drug therapyStart: 04-06-2023 End: 99-80-3397yypsfrmhjd 100 mg ER Tab 100 mg = 1 tab(s), Tab-ER, Oral, Start date 04/06/23 9:00:00 PM EDT, 04/06/23 9:58:00 EDT Start Date: 04/06/23 Stop Date: 04/06/23 Status: CompletedStart: 41-69-9075sydm 1 tablet by mouth at bedtime metoprolol 100 mg ER Tab 100 mg = 1 tab(s), Oral, Bedtime, Refills(s) 0, High blood pressure Start Date: 04/06/23 Status: Orderedmetoprolol succinate XL (Toprol-XL) 100 MG 24 hr tablet Activeomeprazole 40 mg delayed release oral capsule (20 sources)Proton Pump InhibitorStart: 01-42-7802Dprruwqjxa 40 mg capsule,delayed release(DR/EC) Active 40 MG PO Daily April 15, 2025 12:30pm take on an empty stomach, 30 minutes prior to bkfst Complies with drug therapyStart: 06-04-2024 End: 20-68-6613Niuzzxmzbi 40 mg capsule,delayed release(DR/EC) Discontinued 0 .ROUTE .COMPLEX 90 June 04, 2024 8:00am April 15, 2025 12:31pm TAKE 1 CAPSULE ONCE DAILY ON AN EMPTY STOMACH FOLLOWED IN 30 MINUTES BY BREAKFAST Start: 09-27-2023 End: 53-13-7199kkji 1 capsule by mouth once dailyOmeprazole 40 mg capsule,delayed release(DR/EC) Discontinued 40 MG PO Daily September 27, 2023 12:00am June 04, 2024 8:00amOmeprazole 40 mg capsule,delayed release(DR/EC) (4 sources)Start: 82-64-2351Pxmavvbvvt 40 mg capsule,delayed release(DR/EC) Active 0 .ROUTE [...] disintegrating oral tablet (9 sources)Serotonin-3 Receptor AntagonistStart: 56-34-8581djiw 1 tablet by mouth every eight hours as needed for nausea and vomitingOndansetron 4 mg tablet,disintegrating Active 4 MG PO Every 8 hours as needed for nausea and vomiting April 13, 2024 12:00am Complies with drug therapypregabalin 150 mg oral capsule (20 sources)Start: 05-36-5220vafjudlhad (Lyrica) 150 MG capsule 03/31/2023 ActiveStart: 06-30-2018 End: 81-46-8196gkye 1 capsule by mouth three times dailyPregabalin (Lyrica) 75 mg Capsule Discontinued 75 MG PO Three times daily June 30, 2018 1:00am September 27, 2023 2:54pm pain, neuropathySemaglutide (1 source)Start: 25-60-9795wxccag 2 mg by subcutaneous injection every week Semaglutide Active 2 MG SUBCUT every week 10 05April 17, 2024 12:00am tiZANidine 4 mg oral tablet (20 sources)Central alpha-2 Adrenergic AgonistStart: 75-62-7569zduw 3 tablets by mouth once daily in the eveningTizanidine 4 mg tablet Active 12 MG PO Every evening April 29, 2025 12:00am Complies with drug therapyStart: 09-25-2024 take 1 capsule by mouth once dailyTizanidine 4 mg capsule Active 4 MG PO Daily September 25, 2024 10:36am muscle spasm Complies with drug therapyStart: 06-33-7516diyx 1 capsule by mouth four times dailyTizanidine 4 mg capsule Active 4 MG PO Four times daily September 25, 2024 10:36am Complies with drugtherapy Start: 09-27-2023 End: 86-92-2823ahiv 1 capsule by mouth every six hoursTizanidine 4 mg capsule Discontinued 4 MG PO Every 6 hours September 27, 2023 2:53pm September 25, 2024 10:38am muscle spasmStart: 53-46-3703sysb 1 tablet by mouth in the morning, then take 3 tablets by mouth at bedtimeZanaflex 4 mg Tab See Instructions, 1 tab(s) Oral in AM 3 tabs at bedtime, Refills(s) 0 Start Date:03/24/23 Status: Ordered Start: 06-30-2018 End: 16-78-0640ncwq 1 capsule by mouth twice dailyTizanidine 4 mg Capsule Discontinued 4 MG PO Twice daily June 30, 2018 1:00am September 27, 2023 2:54pm muscle spasmtake 1 capsule by mouth every six hourstiZANidine HCl 4 MG 1 tablet as needed Oral every 6 hours for 30 Active Completed/Discontinued Medications MedicationDrug Class(es)DatesSig (Normalized)Sig (Original)alendronic acid 70 mg oral tablet (15 sources)BisphosphonateStart: 06-30-2018 End: 13-86-7265qtxm 1 tablet by mouth every weekAlendronate (Fosamax) 70 mg Tablet Discontinued 70 MG PO every week June 30, 2018 1:00am September 27, 2023 2:54pmaspirin 81 mg delayed release oral tablet (20 sources)Platelet Aggregation Inhibitor, Nonsteroidal Anti-inflammatory Drug Start: 06-30-2018 End: 83-93-4195gsze 1 tablet by mouth once dailyAspirin 81 mg Tablet,Delayed Release (Dr/Ec) Discontinued 81 MG PO Daily June 30, 2018 1:00amMarc2023 2:48pm blood clot preventionbetamethasone 3 mg/ml / betamethasone acetate 3 mg/ml injectable suspension (4 sources)CorticosteroidStart: 06-05-2024 End: 51-85-4971ioczggfrfazzx acetate-betamethasone sodium phosphate ([place]) injection 2 mLStart: 06-05-2024 End: mL, Intra-articular, Once PRN Procedure, Starting on Tue06/05/24 at 1426, For 1 dosecalcium carbonate 1500 mg oral tablet (18 sources)Start: 35-46-8789pfkh 1 tablet by mouth every twelve hoursCalcium 600 MG 1 tablet with meals Orally Twice a day Apr, Not-Taking/PRNStart: 77-70-6099nvnh 1 tablet by mouth every twelve hoursCalcium 600 MG 1 tablet with meals Orally Twice a day Apr, Not-Cyynib15 hr dilTIAZem hydrochloride 360 mg extended release oral tablet (15 sources)Calcium Channel BlockerStart: 06-30-2018 End: 16-82-3358itkb 1 tablet by mouth once dailyDiltiazem Hcl 360 mg Tablet Extended Release 24 Hr Discontinued 360 MG PO Daily June 30, 20181:00am September 27, 2023 2:50pm tachycardiadoxycycline hyclate 100 mg oral capsule (20 sources)Tetracycline-class DrugStart: 09-27-2023 End: 79-11-9545cwov 1 capsule by mouth twice dailyDoxycycline Hyclate 100 mg capsule Discontinued 100 MG PO Twice daily September 27, 2023 12:00am September 28, 2023 3:15pmStart: 07-48-8925cymu 1 capsule by mouth every twelve hours Doxycycline Hyclate 100 MG 1 capsule Orally Twice a day for 5 days Jun, ActiveStart: 07-06-2018 End: 82-70-1027ndjq 1 tablet by mouth twice dailyDoxycycline Hyclate 100 mg tablet Discontinued 100 MG PO Twice daily 10 5 0 July 06, 2018 1:00am September 27, 2023 2:50pmibuprofen 800 mg oral tablet (15 sources)Nonsteroidal Anti-inflammatory DrugStart: 07-06-2018 End: 12-75-9815aaap 1 tablet by mouth three times dailyIbuprofen 800 mg tablet Discontinued 800 MG PO Three times daily 60 0 July 06, 2018 1:00am September 27, 2023 2:50pm Postoperative pain of extremity Other acute postprocedural painlisinopril 5 mg oral tablet (20 sources)Angiotensin Converting Enzyme InhibitorStart: 09-27-2023 End: 93-60-6957rweq 1 tablet by mouth once dailyLisinopril 5 mg tablet Discontinued 5 MG PO Daily September 27, 2023 12:00am September 25, 2024 10:35am Start: 04-07-2023 End: 39-46-4865napvalwdjj 5 mg Tab 5 mg = 1 tab(s), Tab, Oral, Start date 04/07/23 9:00:00 AM EDT, 04/06/23 9:58:00EDT Start Date: 04/07/23 Stop Date: 04/07/23 Status: CompletedStart: 11-09-2022 End: 02-57-6185fmqa 1 tablet by mouth in the morninglisinopril 5 MG tablet Take 1 tablet by mouth in the morning. 01/21/2023 07/17/2024 Discontinuedphentermine hydrochloride 37.5 mg oral capsule (20 sources)Sympathomimetic Amine AnorecticStart: 09-02-2023 End: 85-98-0072bcan 1 capsule by mouth once daily 30 minutes after breakfast Phentermine 37.5 mg capsule Discontinued 37.5 MG PO Daily 0 September 02, 2023 4:19pm September 02, 2023 4:44pm Overweight Overweight must administer 30 minutes before or 1-2 hours after breakfastStart: 82-60-9481nmbw 1 tablet by mouth once dailyPhentermine HCl 37.5 MG take 1 tablet by mouth once daily for 30 Jan, ActiveStart: 09-52-4468hhar 1 tablet by mouth every twenty-four hoursAdipex-P 37.5 MG 1 tablet Orally Once a day for 30 days Dec, Active Start: 77-21-1807pmof 1 tablet by mouth every twenty-four hoursAdipex-P 37.5 MG 1 tablet Orally Once a day for 30 days Jul, ActiveSemaglutide (6 sources)Start: 10-23-2024 End: 91-87-0448qnsrri 2 mg by subcutaneous injection every weekSemaglutide 2 mg/dose (8 mg/3 mL) pen injector Discontinued 2 MG SUBCUT every week 3 October 23, 2024 8:46am October 23, 2024 8:47amStart: 10-23-2024 End: 28-04-0788ifeqoz 2 mg by subcutaneous injection every weekSemaglutide 2 mg/dose (8 mg/3 mL) pen injector Discontinued 2 MG SUBCUT every week 3 October 8:46am October 23, 2024 8:47amStart: 04-17-2024 End: 64-39-2163dcotdb 2 mg by subcutaneous injection every weekSemaglutide 2 mg/dose (8 mg/3 mL) pen injector Discontinued 2 MG SUBCUT every week 3 April 17, 2024 12:00am October 23, 2024 8:46amStart: 04-17-2024 End: 78-32-6005hjryph 2 mg by subcutaneous injection every weekSemaglutide 2 mg/dose (8 mg/3 mL) pen injector Discontinued 2 MG SUBCUT every week 3 April 17, 2024 12:00am October 23, 2024 8:46amSemaglutide 2 mg/dose (8 mg/3 mL) pen injector (6 sources)Start: 10-23-2024 End: 27-39-3118nhzrlg 2 mg by subcutaneous injection every weekSemaglutide 2 mg/dose (8 mg/3 mL) pen injector Discontinued 2 MG SUBCUT every week 3 October 8:46am October 23, 2024 8:47amStart: 04-17-2024 End: 60-55-3754qalcsv 2 mg by subcutaneous injection every weekSemaglutide 2 mg/dose (8 mg/3 mL) pen injector Discontinued 2 MG SUBCUT every week 3 April 17, 2024 12:00am October 23, 2024 8:46amStart: 60-76-8856qkjfes 2 mg by subcutaneous injection every weekSemaglutide 2 mg/dose (8 mg/3 mL) pen injector Active 2 MG SUBCUT every week 3 April 172:00amStart: 04-17-2024 inject 2 mg by subcutaneous injection every weekSemaglutide 2 mg/dose (8 mg/3 mL) pen injector Active 2 MG SUBCUT every week 3 April 161:00pm traZODone hydrochloride 100 mg oral tablet (15 sources)Serotonin Reuptake InhibitorStart: 06-30-2018 End: 26-27-9359Tzzoyefmj 100 mg Tablet Discontinued 50 MG PO Daily at bedtime June 30, 2018 1:00am September 27, 2023 2:54pm insomniaStart: 06-30-2018 End: 04-69-8879qysk 50 mg by mouth once daily at bedtimeTrazodone Discontinued 50 MG PO Daily at bedtime June 30, 2018 1:00am September 27, 2023 2:54pm24 hr upadacitinib 15 mg extended release oral tablet (20 sources)Start: 03-24-2023 End: 89-98-8086guxu 1 tablet by mouth once dailyUpadacitinib 15 [...] Nucleoside Analog DNA Polymerase InhibitorStart: 09-27-2023 End: 95-53-9052twhr 2000 mg by mouth twice dailyValacyclovir Discontinued 2000 MG PO Twice daily September 27, 2023 12:00am September 28, 2023 3:15pmStart: 03-31-2023 End: 31-59-4887vcuVHDesnsoa (Valtrex) 1 g tablet Take 2,000 mg [...] pain (20 sources)Indigestion; Translations: [Epigastric pain] Resolved: [id number] bronchitis (10 sources)Acute bronchitis; Translations: [Acute bronchitis due to other specified organisms]EpisodicAnxiety disorders (20 sources)Generalized anxiety disorder; Translations: [Generalized anxiety disorder]ChronicCardiac dysrhythmias (20 sources)Paroxysmal tachycardia; Translations: [Paroxysmal tachycardia, unspecified]Onset: 46-89-7955EtaovvxLqjdeve dysrhythmias (5 sources)Kyzjeubathi98-56-2009CwlgrjerIytdzjv kidney disease (20 sources)Chronic kidney disease; Translations: [Chronic kidney disease, unspecified]10-95-7209ByczbeiTgnvetkthp heart failure; nonhypertensive (20 sources)Chronic systolic heart failure; Translations: [Chronic systolic (congestive) heart failure]Onset: 253555-21-3567EvxkvidArzfvxi on above: LHC: normal - 2011, Echo: LVEF 61%, normal RV size/function, RVSP 25 - 03/2024,Echo: LVEF 55%, normal RV size/function, RVSP 28 - 11/2024Deficiency and other anemia (20 sources)Anemia; Translations: [Anemia, unspecified]84-01-8159Phcreznr Deficiency and other anemia (5 sources)Anemia, unspecified; Translations: [Anemia, unspecified]Onset: 91-82-9461EljltadzMbkuvbcuzl and other anemia (9 sources)Pernicious anemia; Translations: [Vitamin B12 deficiency anemia due to intrinsic factor deficiency]90-32-2304KidtcmszSxhvyogapz and other anemia (7 sources)Vitamin B12 deficiency anemia due to intrinsic factor deficiency; Translations: [Pernicious anemia]06-21-4056GkcmrfhhPiicjkaro of lipid metabolism (9 sources)Hypercholesterolemia; Translations: [Pure hypercholesterolemia, unspecified]Onset: 963539-76-9715SizsqzeBeyfdcjtv hypertension (20 sources)Essential hypertension; Translations: [Essential (primary) hypertension]ChronicFluid and electrolyte disorders (4 sources)Dehydration; Translations: [Dehydration]EpisodicHypertension with complications and secondary hypertension (9 sources)Hypertensive renal disease; Translations: [Hypertensive chronic kidney disease with stage 1 throughstage 4 chronic kidney disease, or unspecified chronic kidney disease]10-41-4270AexakydGneovgou disorders (5 sources)Immunosuppression; Translations: [Immunodeficiency, unspecified] ChronicImmunizations and screening for infectious disease (9 sources)Contact with and (suspected) exposure to other viral communicable diseases; Translations: [Contact with and (suspected) exposure to COVID-19] EpisodicIntestinal infection (16 sources)Infectious colitis, enteritis and gastroenteritis; Translations: [Infectious gastroenteritis and colitis, unspecified]84-10-6909QfoitadyPtncg disorders and dislocations; trauma-related (1 source)Dislocation of joint of upper limb; Translations: [Unspecified dislocation of unspecified shoulder joint, initial encounter]62-32-0509Sklpsswg Malaise and fatigue (20 sources)Fatigue; Translations: [Other fatigue]35-21-4519JvgnupunXbdzaokpb disorders (9 sources)Excessive and frequent menstruation; Translations: [Excessive and frequent menstruation with regular cycle]Onset: 28-90-1600VbfbindDvdk disorders (20 sources)Mild recurrent major depression; Translations: [Major depressive disorder, recurrent, mild]Onset: 90-39-5495VttjwovQmjipxkdhykdjq (20 sources)Degenerative joint disease of hand; Translations: [Primary osteoarthritis, left hand]Onset: 32-49-0482IlgxhefXudhi acquired deformities (2 sources)Other biomechanical lesions of cervical region; Translations: [Other biomechanical lesions of cervical region]Onset: 68-33-4614KwrestwwUrktq aftercare (17 sources)Drug monitoring done; Translations: [Encounter for therapeutic drug level monitoring]EpisodicOther aftercare (3 sources)Other termination clerk (current) drug therapy; Translations: [Long-term (current) use of other medications]Onset: 234435-78-0193InapfmvnVvfdp aftercare (8 sources)Therapeutic drug level - finding; Translations: [Encounter for therapeutic drug level monitoring]EpisodicOther aftercare (2 sources)Encounter for therapeutic drug level monitoring; Translations: [Encounter for therapeutic drug level monitoring]EpisodicOther aftercare (6 sources)Drug therapy finding; Translations: [Other residential (current) drug therapy]89-20-3287AfmmksjyFxgbb aftercare (3 sources)Taking high risk medication; Translations: [Other residential (current) drug therapy]36-63-7283HqgequhaHbdhn circulatory disease (18 sources)History of pericarditis; Translations: [Personal history of other diseases of the circulatory system]EpisodicOther circulatory disease (11 sources)H/O: cardiovascular disease; Translations: [Personal history of other diseases of the circulatory system]94-98-8756OmyawdcbQfyjk circulatory disease (1 source)Personal history of other diseases of the circulatory system; Translations: [Personal history of other diseases of the circulatory system] EpisodicOther connective tissue disease (2 sources)History of total arthroplasty of right shoulder; Translations: [Presence of right artificial shoulder joint]90-77-3128NytcgudZoopb connective tissue disease (20 sources)Tear of right rotator cuff; Translations: [Unspecified rotator cuff tear or rupture of right shoulder, not specified as traumatic]79-53-9091Qpbcukpo Other connective tissue disease (5 sources)Bicipital tendinitis, right shoulder; Translations: [BICIPITAL TENDINITIS RIGHT SHOULDER]Onset: 98-21-3456NwqpngonAivys connective tissue disease (1 source)Nontraumatic complete rupture of rotator cuff of right shoulder; Translations: [Complete rotator cuff tear or rupture of right shoulder, not specified as traumatic]Onset: 62-61-3631WtpngfcdPmixn connective tissue disease (1 source)Unspecified rotator cuff [...] rupture of left shoulder, not specified as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 Automated coun4.0-11.0[facility] HealthLymphocytes Auto (Bld) [#/Vol]on 39-57-5068Zfsvhppqkqp (Bld) [#/Vol]Lymphocytes [#/volume] in Blood by Automated count1.2-3.8[facility] HealthLymphocytes/100 WBC Auto (Bld)on 08-31-2024 Lymphocytes/100 WBC (Bld)Lymphocytes/100 leukocytes in Blood by Automated count 20.5-60.0[facility] HospitalH Auto (RBC) [Entitic mass]on 52-84-3839ZEA (RBC) [Entitic mass]MCH [Entitic mass] by Automated count26.7-34.0 [facility] HealthMCHC Auto (RBC) [Mass/Vol]on 65-87-6896UDCI (RBC) [Mass/Vol]MCHC [Mass/volume] by Automated count29.9-35.2FFostoria City HospitalV Auto (RBC) [Entitic vol]on 72-46-9364MOV (RBC) [Entitic vol] MCV [Entitic volume] by Automated ybhgrByqi60.0-99.0[facility] HealthMicroalbumin [Mass/volume] in Urineon 33-96-5270Hodsurl DL <= 20 mg/L (U) [Mass/Vol]Microalbumin [Mass/volume] in Urine<=30.0Madison HealthMonocytes Auto (Bld) [#/Vol]on 07-75-5959Guhutfqte (Bld) [#/Vol]Automated blood monocyte count0.3-0.8[facility] HealthMonocytes/100 WBC Auto (Bld)on 72-28-3094Swzvsegwv/100 WBC (Bld)Automated monocyte %1.7-12.0 [facility] HealthNeutrophils Auto (Bld) [#/Vol]on 08-31-2024 Neutrophils (Bld) [#/Vol]Neutrophils [#/volume] in Blood by Automated count 1.4-6.5FKnox Community HospitalNeutrophils/100 WBC Auto (Bld)on 78-07-9516Myrbazgqfhk/100 WBC (Bld)Automated neutrophil %43.0-75.0[facility]ison HealthNo Panel Informationon 79-71-9399Lwlcobcmxuq # (Auto)0.2 10 3/uL0.0-0.7FKnox Community HospitalImmature Granulocyte # (Auto)0.02 10 3/uL0.00-0.03Madison HealthUrine Random Tkxfzzstmj624.19 mg/dL20.00-300.00Madison HealthPlatelet mean volume Auto (Bld) [Entitic vol]on 64-84-3716Xwmwbadn mean volume (Bld) [Entitic vol]Platelet mean volume [Entitic volume] in Blood by Automated countLow9.5-13.5FKnox Community HospitalPlatelets Auto (Bld) [#/Vol]on 33-11-0411Elqsritwy (Bld) [#/Vol]Platelets [#/volume] in Blood by Automated fdpme676-639TxpgrbxovMadison HealthRBC Auto (Bld) [#/Vol]on 32-80-2187JAA (Bld) [#/Vol]Erythrocytes [#/volume] in Blood by Automated countLow4.20-5.40[facility] Hospitalerum or plasma albumin/globulin mass ratioon 81-41-4690Fvgulbg/Globulin [Mass ratio]Serum or plasma albumin/globulin mass ratioMercy Health – The Jewish Hospitalerum or plasma anion gap determinationon 90-61-2893Tqpvi gap [Moles/Vol]Serum or plasma anion gap determinationMercy Health – The Jewish Hospitalerum or plasma total cholesterol/high density lipoprotein (HDL) cholesterol mass albina 09-92-5511Gevyafkotvw.total/Cholesterol in HDL [Mass ratio]Serum or plasma total cholesterol/high density lipoprotein (HDL) cholesterol mass ratMadison HealthComment on above:3.3 - 4.4 LOW RISK4.4 - 7.1 AVERAGE RISK7.1 - 11.0 MODERATE RISK>11.0 HIGH RISKUrine microalbumin/creatinine mass ratioon 00-56-4613Xwcjfqg/Creatinine DL <= 20 mg/L (U) [Mass ratio]Urine microalbumin/creatinine mass ratio0.0-29.9Madison HealthComment on above:NO MICROALBUMINURIA 0-29 MG/GCLINICAL MICROALBUMINURIA 30-300 MG/GMACROALBUMINURIA >300 MG/GBasophils Auto (Bld) [#/Vol]on 20-87-0678Rwseyxpdi (Bld) [#/Vol]Automated basophil count0.0-0.1 [facility] HealthBasophils/100 WBC Auto (Bld)on 06-21-2024 Basophils/100 WBC (Bld)Automated basophil %0.2-2.0[facility] HealthEosinophils/100 WBC Auto (Bld)on 02-58-7862Jxrjiirtyxx/100 WBC (Bld) Automated eosinophil %0.9-7.0[facility] HealthErythrocyte distribution width Auto (RBC) [Ratio]on 04-67-9912Ctnnnzcjdts distribution width (RBC) [Ratio]Erythrocyte distribution width [Ratio] by Automated count11.0-15.0 [facility] HealthEstimated glomerular filtration rate (GFR) non- Americanon 36-18-2946WSD/1.73 sq M.predicted among non-blacks MDRD (S/P/Bld) [Vol rate/Area]Estimated glomerular filtration rate (GFR) non- AmericanLow>=60 mL/min/1.73m 2FKnox Community HospitalGlobulin Calc (S) [Mass/Vol]on 71-47-7593Azwfulzf (S) [Mass/Vol]Serum globulin measurement by calculation (mass/volume)Mad[facility] HealthHematocrit Auto (Bld) [Volume fraction]on 73-97-0927Nkepgdylqp (Bld) [Volume fraction]Hematocrit [Volume Fraction] of Blood by Automated izfwzGzk49.0-48.0[facility] HealthHemoglobin [Mass/volume] in Bloodon 53-88-0581Dcqtiqfpfi (Bld) [Mass/Vol]Hemoglobin [Mass/volume] in YrthpVbl22.0-16.0[facility] HealthLaboratory - Chemistry and Chemistry - challengeon 06-21-2024 Albumin [Mass/Vol]3.8 g/dL3.4-5.0[facility] HealthALP [Catalytic activity/Vol]48 U/G94-292ZzauhkqelMadison HealthALT [Catalytic activity/Vol]13 U/UFbn63-33YprvlesmnMadison HealthAST [Catalytic activity/Vol]14 U/IUif06-48QbkbqjlluMadison HealthBilirubin [Mass/Vol] 0.5 mg/dL0.2-1.0[facility] HealthCalcium [Mass/Vol]9.1 mg/dL 8.5-10.1FKnox Community HospitalChloride [Moles/Vol]105 mmol/L98-107 [facility] HealthCO2 [Moles/Vol]26.1 mmol/L21.0-32.0[facility] HealthCreatinine [Mass/Vol]1.43 mg/dLHigh0.55-1.02[facility] HealthGFR/1.73 sq M.predicted MDRD (S/P/Bld) [Vol rate/Area]45 mL/min/{1.73_m2}Low>=60 mL/min/1.73m 2FKnox Community HospitalGlucose [Mass/Vol]76 mg/xK28-024IrtqrqfdkMadison HealthPotassium [Moles/Vol] 3.4 mmol/LLow3.5-5.1FKnox Community HospitalProtein [Mass/Vol]6.7 g/dL 6.4-8.2FBerger Hospitalodium [Moles/Vol]144 mmol/E304-525 [facility] HealthUrea nitrogen [Mass/Vol]18.0 mg/dL7.0-18.0 [facility] HealthUrea nitrogen/Creatinine [Mass ratio]12.6 mg/mg [facility] HealthLaboratory - Hematology and Cell countson 01-21-5809UPB (Bld) [Velocity]6 mm/h<=30[facility] Immature granulocytes/100 WBC (Bld)0.3 %0.0-0.5FKnox Community Hospital Leukocytes [#/volume] corrected for nucleated erythrocytes in Blood by Automated counon 07-49-2238JEG corrected for nucl RBC Auto (Bld) [#/Vol]Leukocytes [#/volume] corrected for nucleated erythrocytes in Blood by Automated counLow 4.0-11.0[facility] HealthLymphocytes Auto (Bld) [#/Vol]on 86-58-5608Yvzdhqlxpud (Bld) [#/Vol]Lymphocytes [#/volume] in Blood by Automated count1.2-3.8[facility] HealthLymphocytes/100 WBC Auto (Bld)on 02-60-4438Bxwraddknzl/100 WBC (Bld)Lymphocytes/100 leukocytes in Blood by Automated count20.5-60.0[facility] HospitalH Auto (RBC) [Entitic mass]on 74-27-0043DHG (RBC) [Entitic mass]MCH [Entitic mass] by Automated count 26.7-34.0[facility] HealthMCHC Auto (RBC) [Mass/Vol]on 20-08-0894EIHG (RBC) [Mass/Vol]MCHC [Mass/volume] by Automated count29.9-35.2 [facility] HealthMCV Auto (RBC) [Entitic vol]on 31-82-7030FKI (RBC) [Entitic vol]MCV [Entitic volume] by Automated count81.0-99.0[facility] HealthMonocytes Auto (Bld) [#/Vol]on 10-74-0762Thjgfnggl (Bld) [#/Vol]Automated blood monocyte count0.3-0.8[facility] Monocytes/100 WBC Auto (Bld)on 60-03-2376Jfyleywfl/100 WBC (Bld)Automated monocyte %1.7-12.0Madison HealthNeutrophils Auto (Bld) [#/Vol]on 79-85-0399Nsbsjpvvmqv (Bld) [#/Vol]Neutrophils [#/volume] in Blood by Automated count1.4-6.5FKnox Community HospitalNeutrophils/100 WBC Auto (Bld)on 42-66-1201Keaoqjpfffp/100 WBC (Bld)Automated neutrophil %Low43.0-75.0 [facility] HealthNo Panel Informationon 88-66-0196Ajbonezsnpy # (Auto)0.1 10 3/uL0.0-0.7FKnox Community HospitalImmature Granulocyte # (Auto)0.01 10 3/uL0.00-0.03Madison HealthPlatelet mean volume Auto (Bld) [Entitic vol]on 78-18-5065Cinoqtlh mean volume (Bld) [Entitic vol] Platelet mean volume [Entitic volume] in Blood by Automated countLow9.5-13.5 [facility] HealthPlatelets Auto (Bld) [#/Vol]on 06-21-2024 Platelets (Bld) [#/Vol]Platelets [#/volume] in Blood by Automated uzlsw878-160 [facility] HealthRBC Auto (Bld) [#/Vol]on 35-38-9977BWH (Bld) [#/Vol]Erythrocytes [#/volume] in Blood by Automated countLow4.20-5.40[facility] Hospitalerum or plasma albumin/globulin mass ratioon 06-21-2024 Albumin/Globulin [Mass ratio]Serum or plasma albumin/globulin mass ratio [facility] Hospitalerum or plasma anion gap determinationon 41-38-8757Plztt gap [Moles/Vol]Serum or plasma anion gap determinationMadison HealthNo Panel Informationon 61-37-2526Awbuikf Scruggs, ARRT 06/09/2024 1:08 PM L Inj/Asp: L glenohumeral on 06/05/2024 2:26 PM Indications: pain Details: 25 G needle, ultrasound-guided Medications: 2 mL betamethasone acetate-betamethasone sodium phosphate 6 (3-3) MG/ML Consent was given by the patient. [facility] CenterXR Shoulder - left 2 Viewson 01-97-2059Meftlfv Result: 3 views left shoulder, Grashey/Zanca/outlet, taken today and saved to the permanent medical record are reviewed. No fractures. [facility] WNWake [facility] Davie HospitalXR Shoulder - left 2 Viewson 51-56-7651Lwtaxbtiv Study observation (narrative)[facility] HealthcareMain OR Intraoperative Recordon 49-58-4075Sfey OR Intraoperative RecordMain OR Intraoperative RecordNormalFisher [facility] w/ Auto Diffon 54-59-1238Etihrgzcp/100 WBC (Bld)1.3 %Normal0.0-2.0 [facility] HospitalComment on above:Performed By: #### [id number] ####[facility] [address] [place] [address] Basophils/Leukocytes Auto (Bld) [Pure # fraction]0.1 E9/LNormal0.0-0.2Fpricilla [facility] HospitalComment on above:Performed By: #### [id number] ####[address] [address]Xygvwbdcazg (Bld) [#/Vol]0.2 E9/LNormal0.0-0.5FGlenbeigh HospitalComment on above: Performed By: #### [id number] ####[address] [address]Bsfipwvupsu/100 WBC (Bld)3.7 %Normal0.0-8.0[facility] HospitalComment on above:Performed By: #### [id number] ####[address] [address]Ykgzaxftwug distribution width (RBC) [Ratio]15.3 %High10.9-14.2FGlenbeigh Hospital Comment on above:Performed By: #### [id number] ####[address] [address]Sfkmclyxmy (Bld) [Volume fraction] 27.7 %Low34.0-46.0[facility] HospitalComment on above:Performed By: #### [id number] ####[address] [address]Euelvuaffj (Bld) [Mass/Vol]9.6 g/dLLow12.0-16.0[facility] Comment on above:Performed By: #### [id number] ####[address] [address]Qpucdpyoipf (Bld) [#/Vol]0.9 E9/LLow 1.0-4.0[facility] HospitalComment on above:Performed By: #### [id number] ####[address] [address] Lymphocytes/100 WBC (Bld)20.4 %[place]ee98.0-50.0[facility] HospitalComment on above:Performed By: #### [id number] ####[address] [address]QDY (RBC) [Entitic mass]33.7 pgNormal 27.0-34.0[facility] HospitalComment on above:Performed By: #### [id number] ####[address] [address]CRNU (RBC) [Mass/Vol]34.6 g/gIGmymmo33.4-36.0[facility] HospitalComment on above:Performed By: #### [id number] ####[address] [address]DGZ (RBC) [Entitic vol]97.3 kQWwhptb72.0-100.0 [facility] HospitalComment on above:Performed By: #### [id number] ####[address] [address] Monocytes (Bld) [#/Vol]0.8 E9/LNormal0.2-1.0[facility] HospitalComment on above:Performed By: #### [id number] ####[address] [address]Mmnuzmjshim (Bld) [#/Vol]2.4 E9/L Normal2.0-7.5FGlenbeigh HospitalComment on above:Performed By: #### [id number] ####[address] [address]Hxyehqmhunh/100 WBC (Bld)55.1 %Uwsjjv71.0-75.0[facility] Comment on above:Performed By: #### [id number] ####[address] [address]Jsdkuypa391.0 E9/VXsraoh226.0-500.0 [facility] HospitalComment on above:Performed By: #### [id number] ####[address] [address] Platelet mean volume (Bld) [Entitic vol]7.0 fLNormal6.4-10.8[facility] HospitalComment on above:Performed By: #### [id number] ####Yasmani [facility] [address] [place], [place] [address]NDG (Bld) [#/Vol]2.9 E12/LLow 4.3-5.9[facility] HospitalComment on above:Performed By: #### [id number] ####Yasmani [facility] [address] [place], [place] [address]FOT corrected for nucl RBC Auto (Bld) [#/Vol]4.3 E9/LNormal4.0-11.0[facility] HospitalComment on above:Result Comment: Peripheral smear review performed.Performed By: #### [id number] ####Yasmani [facility] [address] [place], [place] [address]Zxedyjggi Instructionson 04-27-2024 Discharge InstructionsDischarge Instructions ZAIDIRADHA :1960 [...] has already been scheduled Where: [place] [address]- [facility] (1) Medications What How Much When Instructions Next Dose New acetaminophen-oxycodone (Percocet 5 mg-325 mg oral tablet) See instructions 1-2 tab(s) Oral q4hr Pickup at [facility]/pharmacy #6177 New celecoxib (CeleBREX 100 mg Cap) 1 Capsules By Mouth 2 times a day as needed for for pain [facility] New docusate (Colace 100 mg Cap) 1 Capsules By Mouth 2 times a day as needed for for constipation [facility] Unchanged buPROPion (Wellbutrin XL 300 mg/ [...] Tablets By Mouth Every day Pharmacy Information [facility]/pharmacy #[id number]: [address], [place] [id number] [phone] What How Much When Comments Stop Taking acetaminophen-hydrocodone (acetaminophen-hydrocodone 325 mg-5 mg oral tablet) 1 TabletsBy Mouth Every 6 hours Education Materials [place], [place] [facility] AFTER YOUR SHOULDER ARTHROSCOPY [...] betadine and band-aids t (more content not included)...[facility] HospitalComment on above:Result Comment: Electronically Signed By: Rebecca HARO, Rodger Vergara\.zari\Date and Time Signed: 04/27/24 10:11 EDTHEMATOLOGY Ordered By: SYSTEM SYSTEM on 98-93-3737Rkfoglhss/100 WBC (Bld)1.3 %Normal0.0 - 2.0 %Remisol HemeBasophils/Leukocytes [...] - 4.0 E9/LRemisol HemeLymphocytes/100 WBC (Bld)20.4 % Cvktwp91.0 - 50.0 %Remisol HemeMCH (RBC) [Entitic mass]33.7 coGmbyac78.0 - 34.0 pgRemisol HemeMCHC (RBC) [Mass/Vol]34.6 g/tNKajcgf76.4 - 36.0 gm/dLRemisol Heme MCV (RBC) [Entitic vol]97.3 zXAdgnto13.0 - 100.0 fLRemisol HemeMonocytes (Bld) [#/Vol]0.8 E9/LNormal0.2 - 1.0 E9/LRemisol HemeMonocytes/100 WBC (Bld)19.5 %High 4.0 - 14.0 %Remisol HemeNeutrophils (Bld) [#/Vol]2.4 E9/LNormal2.0 - 7.5 E9/L Remisol HemeNeutrophils/100 WBC (Bld)55.1 %Pijvro03.0 - 75.0 %Remisol Heme Npugxbkg470.0 E9/WLiqnzp266.0 - 500.0 E9/LRemisol HemePlatelet mean volume (Bld) [Entitic vol]7.0 fLNormal6.4 - 10.8 fLRemisol HemeRBC (Bld) [#/Vol]2.9 E12/LLow 4.3 - 5.9 E12/LRemisol HemeWBC corrected for nucl RBC Auto (Bld) [#/Vol]4.3 E9/L Normal4.0 - 11.0 E9/LRemisol HemeComment on above:Result Comment: Peripheral smear review performed.Inpatient Patient Summaryon 35-03-9359Pmccaoiof Patient SummaryInpatient Patient Summary [address] [address] [facility] Clinical Discharge Instructions PERSON INFORMATION Name: RADHA ZADII [facility]#:[id number] PHYSICIANS Admitting Physician: Jordan Yuan DO Attending Physician: Jordan Yuan DO PCP: JOHN ASHBY DO Discharge Diagnosis: Comment: PATIENT EDUCATION INFORMATION Instructions: Iris Yuan - After Your Shoulder Arthroscopy (Custom) Medication Leaflets: Follow up: MEDICATION LIST New Medications [facility]/pharmacy #[id number], [address], [place] [id number], [phone] acetaminophen-oxycodone (Percocet 5 mg-325 mg oral tablet) [...] 1 Tablets By Mouth every 6 hours. Comment:[facility] HospitalMain OR PACU I Recordon 81-58-6007Mcgc OR PACU I RecordMain OR PACU I Record PACU Phase I Document Type FT Summary Primary Physician: Jordan Yuan DO Finalized Date/Time: 04/27/24 11:12:00 Pt. Name: RADHA ZAIDI Levy Carrillo/Sex: 1960 Female Med Rec #: [id number] Physician: Jordan Yuan DO Financial #: [id number] Pt. Type: A Room/Bed: [place] [address] Admit/Disch: 04/27/24 05:21:12 - Institution: Case Times [...] Signatures Signed By: Ling Kathleen RN 04/27/24 11:12[facility] HospitalMain OR Preoperative Recordon 84-19-3275Fmhs OR Preoperative RecordMain OR Preoperative Record PreOp Document Type FT Summary Primary Physician: Jordan Yuan DO Finalized Date/Time: 04/27/24 09:02:45 Pt. Name: ZAIDIRADHA/Sex: 1960 Female Med Rec #: [id number] Physician: Jordan Yuan DO Financial #: [id number] Pt. Type: A Room/Bed: [place] [address] Admit/Disch: 04/27/24 05:21:12 - Institution: Case Times [...] Signatures Signed By: Carli Gomez RN 04/27/24 09:02[facility] HospitalOperative Report on 34-73-5936Ihstejkqv ReportOperative Report Patient: RADHA ZAIDI Age: 63 years Sex: Female : 1960 Associated Diagnoses: None Author: Jordan Yuan DO DATE OF SURGERY: 04/27/2024 SURGEON: Jordan Yuan D.O. CENSUS ENUMERATOR: Jeff Marshall PREOPERATIVE DIAGNOSIS: Rotator cuff tear, [...] the greater tuberosity was cleared with the [place] wand to improve visualization. An accessory anterosuperolateral portal was made with outside in technique using spinal needle localization. A passport cannula was placed. Soft tissuewas cleared from the lesser tuberosity with the [place] wand. A bony bleeding bed was created with the arthroscopic bur on the reverse setting. The punch was placed to the anterior portal and used to create a socket for the corkscrew anchor at the upper portion of the lesser tuberosity. The anchor was inserted. The sutures were passed using th (more content not included)...[facility] HospitalComment on above:Result Comment: Electronically Signed By: Jordan Yuan DO\.br\Date and Time Signed: 04/27/24 15:13 EDTOutpatient Surgery Discharge Instructionon 06-25-9837Ofaiftqhpd Surgery Discharge InstructionOutpatient Surgery Discharge Instruction [place] [id number] Patient Discharge Instructions PERSON INFORMATION Name: RADHA [...] Information: You may receive a survey from [employer] asking you to rate your care experience. Your feedback is important and will help us understand what we do well and how we can improve the quality of care we provide to you, your loved ones and our community. It?s an honor to serve you. Thank you for choosing [facility] HERE ARE THE MEDICATION CHANGES THAT OCCURRED DURING YOUR HOSPITAL STAY New Medications [id number], [address], [place] [id number], [phone] acetaminophen-oxycodone (Percocet 5 mg-325 mg oral tablet) [...] every 6 hours. PATIENT EDUCATION INFORMATION Instructions: [place], [place] [facility] AFTER YOUR SHOULDER ARTHROSCOPY [...] place until follow up (more content not included)...[facility] HospitalProceduralon 59-66-7598Zsrvxsqxfc Procedural Patient: RADHA ZAIDI Age: 63 years [...] Using maximal sterile barrier technique per current [facility] guidelines including hand hygeine, Guidance [...] The patient tolerated the procedure as expected.Normal [facility] HospitalProceduralProcedural Patient: RADHA ZAIDI Age: 63 years [...] list: All Problems Bradycardia / SNOMED CT 31568527 / Confirmed High blood pressure / SNOMED CT 6402629511 / Confirmed Rheumatoid arteritis / 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 Family History: Primary malignant neoplasm of prostate Father Acute myocardial infarction Mother Procedure history: Total shoulder replacement (93724809) on 04/06/2023 at 62 Years. Cervical laminectomy (3395964681). Amputation of finger (638089444). Removal of lung, Partial (75985). Open reduction and internal fixation of fracture Leg (586044203). Foot surgery (8733511914). Lumbar discectomy (128054239). Social History Social & Psychosocial Habits Alcoh (more content not included)...NormalAtrium Health Waxhawer Medstar Harbor HospitalBasophils Auto (Bld) [#/Vol]on 07-97-8925Iakdlhghw (Bld) [#/Vol]0.0 10 3/uL0.0-0.1 [facility] HealthBasophils/100 WBC Auto (Bld)on 03-27-2024 Basophils/100 WBC (Bld)0.7 %0.2-2.0[facility] Eosinophils/100 WBC Auto (Bld)on 12-40-7748Fykbkchvleh/100 WBC (Bld)2.0 %0.9-7.0 [facility] HealthErythrocyte distribution width Auto (RBC) [Ratio]on 17-66-3722Ummgzkpgroq distribution width (RBC) [Ratio]14.7 %11.0-15.0 [facility] HealthHematocrit Auto (Bld) [Volume fraction]on 78-33-7747Jvdczwefvh (Bld) [Volume fraction]30.8 %Low36.0-48.0[facility] HealthHemoglobin [Mass/volume] in Bloodon 76-95-5033Gettyzqexm (Bld) [Mass/Vol]10.0 g/dLLow12.0-16.0[facility] HealthLaboratory - Chemistry and Chemistry - challengeon 91-77-0376Kjimydvyc (Vitamin B12) [Mass/Vol]172 pg/lUKeeenxxo344-6092KridnqukmMadison HealthComment on above:Performed at: - [facility] [id number] Director: Lito Matamoros PhD, Phone: [phone] - Hematology and Cell countson 99-84-6278Almydsac granulocytes/100 WBC (Bld)0.5 %0.0-0.5FKnox Community HospitalLeukocytes [#/volume] corrected for nucleated erythrocytes in Blood by Automated counon 52-12-9812MLN corrected for nucl RBC Auto (Bld) [#/Vol]4.4 10 3/uL4.0-11.0[facility] Lymphocytes Auto (Bld) [#/Vol]on 32-31-2104Zefxsmxpnlc (Bld) [#/Vol]1.9 10 3/uL 1.2-3.8[facility] HealthLymphocytes/100 WBC Auto (Bld)on 97-49-6988Uhpqulfxbtz/100 WBC (Bld)42.3 %20.5-60.0[facility] HospitalH Auto (RBC) [Entitic mass]on 05-67-6364TJN (RBC) [Entitic mass]31.9 pg 26.7-34.0[facility] HealthMCHC Auto (RBC) [Mass/Vol]on 17-27-7237KQDT (RBC) [Mass/Vol]32.5 g/dL29.9-35.2FKnox Community HospitalMCV Auto (RBC) [Entitic vol]on 07-08-8087ZRC (RBC) [Entitic vol]98.4 fL 81.0-99.0[facility] HealthMonocytes Auto (Bld) [#/Vol]on 66-56-8428Tcdvxkioj (Bld) [#/Vol]0.6 10 3/uL0.3-0.8[facility] HealthMonocytes/100 WBC Auto (Bld)on 16-25-1777Aodbnvlqr/100 WBC (Bld)12.7 %High 1.7-12.0[facility] HealthNeutrophils Auto (Bld) [#/Vol]on 23-04-6577Rhspwfkneip (Bld) [#/Vol]1.8 10 3/uL1.4-6.5FKnox Community HospitalNeutrophils/100 WBC Auto (Bld)on 19-09-7323Noaahstakxq/100 WBC (Bld)41.8 % Low43.0-75.0[facility] HealthNo Panel Informationon 03-27-2024 Eosinophils # (Auto)0.1 10 3/uL0.0-0.7FKnox Community HospitalFolate 14.00 ng/mL8.60-58.90Madison HealthImmature Granulocyte # (Auto)0.02 10 3/uL0.00-0.03Madison HealthPlatelet mean volume Auto (Bld) [Entitic vol]on 27-15-7159Hukwkfos mean volume (Bld) [Entitic vol] 9.3 fLLow9.5-13.5FKnox Community HospitalPlatelets Auto (Bld) [#/Vol]on 75-40-8279Cicwdykiz (Bld) [#/Vol]235 10 3/mB775-781ToetbrtsqMadison HealthRBC Auto (Bld) [#/Vol]on 57-46-7645EJH (Bld) [#/Vol]3.13 10 6/uLLow 4.20-5.40Madison HealthReticulocytes/100 RBC Auto (Bld)on 49-10-4099Vmopmedltljxh/100 RBC (Bld)2.37 %0.60-3.10[facility] Jewish Hospitalerum or plasma methylmalonate measurement (moles/volume)on 03-27-2024 Methylmalonate [Moles/Vol]195 nmol/L0-378[facility] Comment on above:This test was developed and its performance characteristicsdetermined by ZYB. It has not been cleared orapproved by the Food and Drug Administration.Performed at: [address] [id number] Director: Goldy Aparicio MD, Phone: [phone] Chest 2 Viewson 86-72-5229FN Chest 2 ViewsExam Date/Time: 03/19/2024 12:57 EDT [...] Ka,r in mGy = na DAP = naNormalLima City HospitalBMPon [id number] gap [Moles/Vol]9 mmol/LNormal6-16L[facility] HospitalComment on above:Performed By: #### [id number] #### [facility] [address], [place] [address]Mrudgpu [Mass/Vol]9.1 mg/dLNormal8.9-11.1FGlenbeigh HospitalComment on above:Performed By: #### [id number] #### [facility] [address], [place] [address]Sfhsfsoe [Moles/Vol]109 mmol/PFyqcmi482-230YhugxlLima City HospitalComment on above:Performed By: #### [id number] #### [facility] [address], [place] [id number] [Moles/Vol]27 mmol/PFzzohz72-83HicjqbLima City Hospital Comment on above:Performed By: #### [id number] #### [facility] [address], [place] [address]Pduafixvcn [Mass/Vol]1.1 mg/dLNormal0.5-1.3FGlenbeigh HospitalComment on above:Performed By: #### [id number] #### [facility] [address], [place] [address]Ywzzlml [Mass/Vol]85 mg/rILiphyu97-514PvkdbqLima City HospitalComment on above:Performed By: #### [id number] #### [facility] [address], [place] [address]Pomdzbzrd [Moles/Vol]3.8 mmol/LNormal3.5-5.3FGlenbeigh HospitalComment on above:Performed By: #### [id number] #### [facility] [address], [place] [address]Toqcav [Moles/Vol]141 mmol/UBwzpug166-436PjqitsLima City HospitalComment on above:Performed By: #### [id number] #### [facility] [address], [place] [address]Mkfg nitrogen [Mass/Vol]17 mg/dLNormal5-21[facility] City HospitalComment on above:Performed By: #### [id number] #### [facility] [address] [place] [address] 54963Infy nitrogen/Creatinine [Mass ratio]16 No RdhftJdziwb24-21 [facility] HospitalComment on above:Performed By: #### [id number] #### [facility] [address] [place] [address] 30959XXI w/ Auto Diffon 27-74-4546Maxnbbckv/100 WBC (Bld)0.6 %Normal 0.0-2.0[facility] City HospitalComment on above:Performed By: #### [id number] #### [facility] [address], [place] [address]Kigkopvuh/Leukocytes Auto (Bld) [Pure # fraction]0.0 E9/LNormal 0.0-0.2FGlenbeigh HospitalComment on above:Performed By: #### [id number] #### [facility] [address] [place] [address] 810[address]Cjcqhoizeyc (Bld) [#/Vol]0.1 E9/LNormal0.0-0.5FGlenbeigh HospitalComment on above:Performed By: #### [id number] #### [facility] [address] [place] [address] 55398Rrcdehoqfan/100 WBC (Bld)1.6 %Normal0.0-8.0[facility] City HospitalComment on above:Performed By: #### [id number] #### [facility] [address] [place] [address] 54870Lildgjbwrjj distribution width (RBC) [Ratio]14.7 %High10.9-14.2 [facility] HospitalComment on above:Performed By: #### [id number] #### [facility] [address] [place] [address] 73167Vvapoaalol (Bld) [Volume fraction]27.9 %Low34.0-46.0[facility] HospitalComment on above:Performed By: #### [id number] #### [facility] [address] [place] [address] 38425Sutehrpghu (Bld) [Mass/Vol]9.8 g/dLLow12.0-16.0[facility] HospitalComment on above:Performed By: #### [id number] #### [facility] [address] [place] [address] 37339Orlbrlffyzw (Bld) [#/Vol]1.1 E9/LNormal1.0-4.0[facility] City HospitalComment on above:Performed By: #### [id number] #### [facility] [address] [place] [address] 97429Wixyjqvolnv/100 WBC (Bld)28.9 %Mmxogk07.0-50.0[facility] HospitalComment on above:Performed By: #### [id number] #### [facility] [address] [place] [address] 25247ZXV (RBC) [Entitic mass]33.8 etYjoexj07.0-34.0[facility] HospitalComment on above:Performed By: #### [id number] #### [facility] [address] [place] [address] 70286XGTN (RBC) [Mass/Vol]35.1 g/hGAryjmp31.4-36.0[facility] HospitalComment on above:Performed By: #### [id number] #### [facility] [address] [place] [address] 11452ZQR (RBC) [Entitic vol]96.2 qOCzefjl83.0-100.0[facility] HospitalComment on above:Performed By: #### [id number] #### [facility] [address] [place] [address] 44071Muvhviusk (Bld) [#/Vol]0.6 E9/LNormal0.2-1.0[facility] HospitalComment on above:Performed By: #### [id number] #### [facility] [address] [place] [address] 06324Zmqatphdfln (Bld) [#/Vol]2.0 E9/LNormal2.0-7.5FGlenbeigh HospitalComment on above:Performed By: #### [id number] #### [facility] [address] [place] [address] 99174Scmjzdbskfh/100 WBC (Bld)52.8 %Xvsqas92.0-75.0[facility] HospitalComment on above:Performed By: #### [id number] #### [facility] [address] [place] [address] 99373Wfjaokls679.0 E9/FKeivrm375.0-500.0[facility] Comment on above:Performed By: #### [id number] #### [facility] [address] [place] [address] 57500Trtnpkus mean volume (Bld) [Entitic vol]7.0 fLNormal6.4-10.8 [facility] HospitalComment on above:Performed By: #### [id number] #### [facility] [address], [place] [address]ECS (Bld) [#/Vol]2.9 E12/LLow4.3-5.9[facility] Comment on above:Performed By: #### [id number] #### [facility] [address], [place] [address]STC corrected for nucl RBC Auto (Bld) [#/Vol]3.8 E9/LLow 4.0-11.0[facility] City HospitalComment on above:Result Comment: Peripheral smear review performed.Performed By: #### [id number] #### [facility] [address], [place] [address]UEQWFEXAMItgdcxw By: SYSTEM SYSTEM on 13-57-5837Pmukm gap [Moles/Vol]9 mmol/LNormal6 - 16 mEq/LRemisol ChemCalcium [Mass/Vol]9.1 mg/dL Normal8.9 - 11.1 mg/dLRemisol ChemChloride [Moles/Vol]109 mmol/LJlopmi517 - 111 mmol/LRemisol ChemCO2 [Moles/Vol]27 mmol/RWjkhmc42 - 31 mmol/LRemisol Chem Creatinine [Mass/Vol]1.1 mg/dLNormal0.5 - 1.3 mg/dLRemisol LsgvlDKX23 mL/min/1.73 m2Low>=59mL/min/1.73 s0Fevjpwz ChemGlucose [Mass/Vol]85 mg/dLNormal 55 - 199 mg/dLRemisol ChemPotassium [Moles/Vol]3.8 mmol/LNormal3.5 - 5.3 mmol/L Remisol ChemSodium [Moles/Vol]141 mmol/SJeyfbc064 - 145 mmol/LRemisol ChemUrea nitrogen [Mass/Vol]17 mg/dLNormal5 - 21 mg/dLRemisol ChemUrea nitrogen/Creatinine [Mass ratio]16 mg/xcGzjsya23 - 20Remisol ChemHEMATOLOGY Ordered By: SYSTEM SYSTEM on 12-72-7536Pcxlrdymb/100 WBC (Bld)0.6 %Normal0.0 - 2.0 %Remisol HemeBasophils/Leukocytes [...] - 4.0 E9/LRemisol HemeLymphocytes/100 WBC (Bld)28.9 % Yaayqk13.0 - 50.0 %Remisol HemeMCH (RBC) [Entitic mass]33.8 acStskdw99.0 - 34.0 pgRemisol HemeMCHC (RBC) [Mass/Vol]35.1 g/xBQsibxj96.4 - 36.0 gm/dLRemisol Heme MCV (RBC) [Entitic vol]96.2 eOJhkvtf38.0 - 100.0 fLRemisol HemeMonocytes (Bld) [#/Vol]0.6 E9/LNormal0.2 - 1.0 E9/LRemisol HemeMonocytes/100 WBC (Bld)16.1 %High 4.0 - 14.0 %Remisol HemeNeutrophils (Bld) [#/Vol]2.0 E9/LNormal2.0 - 7.5 E9/L Remisol HemeNeutrophils/100 WBC (Bld)52.8 %Veenph76.0 - 75.0 %Remisol Heme Ouqcpqqd246.0 E9/SNkhjft246.0 - 500.0 E9/LRemisol HemePlatelet mean volume (Bld) [Entitic vol]7.0 fLNormal6.4 - 10.8 fLRemisol HemeRBC (Bld) [#/Vol]2.9 E12/LLow 4.3 - 5.9 E12/LRemisol HemeWBC corrected for nucl RBC Auto (Bld) [#/Vol]3.8 E9/L Low4.0 - 11.0 E9/LRemisol HemeComment on above:Result Comment: Peripheral smear review performed.eGFRon 53-73-4606lVIU87 mL/min/1.73 m2Low>=59[facility] HospitalComment on above:Order Comment: Order added by Discern Expert. Performed By: #### [id number] #### [facility] [address], [place] [address]Gwydduixp Auto (Bld) [#/Vol]on 27-10-1611Qlzudntib (Bld) [#/Vol]0.0 10 3/uL0.0-0.1FKnox Community HospitalBasophils/100 WBC Auto (Bld)on 41-91-1196Vikpfyyeu/100 WBC (Bld)0.8 %0.2-2.0[facility] HealthEosinophils/100 WBC Auto (Bld)on 48-56-3854Cfndcdpzfgc/100 WBC (Bld)1.5 % 0.9-7.0[facility] HealthErythrocyte distribution width Auto (RBC) [Ratio]on 54-19-9383Iivthysrgcs distribution width (RBC) [Ratio]15.1 %High 11.0-15.0[facility] HealthHematocrit Auto (Bld) [Volume fraction]on 79-06-3563Dzyrtiqgwl (Bld) [Volume fraction]35.4 %Low36.0-48.0 [facility] HealthHemoglobin [Mass/volume] in Bloodon 02-14-2024 Hemoglobin (Bld) [Mass/Vol]11.0 g/dLLow12.0-16.0[facility] HealthIron binding capacity [Mass/volume] in Serum or Plasmaon 18-37-6913Qger binding capacity [Mass/Vol]303.0 ug/dL250.0-450.0[facility] HealthIron saturation [Mass Fraction] in Serum or Plasmaon 98-97-1454Zhcy saturation [Mass fraction]81.2 %[facility] HealthLaboratory - Chemistry and Chemistry - challengeon 85-49-4226Knipxtzbn (Vitamin B12) [Mass/Vol]225.0 pg/mL193.0-986.0[facility] HealthFerritin [Mass/Vol]338.0 ng/mLHigh8.0-252.0[facility] HealthIron [Mass/Vol]246.0 ug/pFUsqh08.0-170.0[facility] HealthLaboratory - Hematology and Cell countson 63-74-7683Gvpiyukq granulocytes/100 WBC (Bld)0.8 % High0.0-0.5FKnox Community HospitalLeukocytes [#/volume] corrected for nucleated erythrocytes in Blood by Automated counon 19-33-3238AFT corrected for nucl RBC Auto (Bld) [#/Vol]4.7 10 3/uL4.0-11.0[facility] Lymphocytes Auto (Bld) [#/Vol]on 04-00-1084Lecmvmfptme (Bld) [#/Vol]2.3 10 3/uL 1.2-3.8[facility] HealthLymphocytes/100 WBC Auto (Bld)on 61-62-0077Czcaibzykfp/100 WBC (Bld)48.7 %20.5-60.0[facility] Auto (RBC) [Entitic mass]on 78-84-6017HAK (RBC) [Entitic mass]31.9 pg 26.7-34.0[facility] HealthMCHC Auto (RBC) [Mass/Vol]on 63-71-9880LQGE (RBC) [Mass/Vol]31.1 g/dL29.9-35.2FKnox Community HospitalMCV Auto (RBC) [Entitic vol]on 15-50-7256ADJ (RBC) [Entitic vol]102.6 fL High81.0-99.0[facility] HealthMonocytes Auto (Bld) [#/Vol]on 57-68-9314Qtoxqqzdk (Bld) [#/Vol]0.6 10 3/uL0.3-0.8[facility] HealthMonocytes/100 WBC Auto (Bld)on 38-86-5852Nkzpjtihu/100 WBC (Bld)13.3 %High 1.7-12.0[facility] HealthNeutrophils Auto (Bld) [#/Vol]on 25-60-5894Zpqcbotekfy (Bld) [#/Vol]1.7 10 3/uL1.4-6.5FKnox Community HospitalNeutrophils/100 WBC Auto (Bld)on 61-03-0658Mktyhhuqegu/100 WBC (Bld)34.9 % Low43.0-75.0[facility] HealthNo Panel Informationon 02-14-2024 Eosinophils # (Auto)0.1 10 3/uL0.0-0.7FKnox Community HospitalImmature Granulocyte # (Auto)0.04 10 3/uLHigh0.00-0.03[facility] Folate9.40 ng/mL8.60-58.90[facility] HealthPlatelet mean volume Auto (Bld) [Entitic vol]on 45-61-6278Grtoylth mean volume (Bld) [Entitic vol]9.1 fLLow9.5-13.5FKnox Community HospitalPlatelets Auto (Bld) [#/Vol]on 22-32-2552Noxbmgisc (Bld) [#/Vol]197 10 3/qA062-276JsmsxenwmMadison HealthRBC Auto (Bld) [#/Vol]on 13-49-0754WTM (Bld) [#/Vol]3.45 10 6/uLLow 4.20-5.40[facility] HealthBasophils Auto (Bld) [#/Vol]on 47-37-3626Ejegmatzz (Bld) [#/Vol]0.0 10 3/uL0.0-0.1FKnox Community HospitalBasophils/100 WBC Auto (Bld)on 91-33-8837Pkzvdpyha/100 WBC (Bld)0.8 % 0.2-2.0[facility] HealthEosinophils/100 WBC Auto (Bld)on 18-18-0522Guvkntqoqkp/100 WBC (Bld)2.1 %0.9-7.0[facility] Erythrocyte distribution width Auto (RBC) [Ratio]on 97-95-7157Fdzzvevyaav distribution width (RBC) [Ratio]14.2 %11.0-15.0[facility] Estimated glomerular filtration rate (GFR) non- Americanon 02-02-2024 GFR/1.73 sq M.predicted among non-blacks MDRD (S/P/Bld) [Vol rate/Area]51 mL/min/{1.73_m2}Low>=60[facility] HealthGlobulin Calc (S) [Mass/Vol]on 03-63-8722Ugmjtnbe (S) [Mass/Vol]2.9 g/dLMadison HealthHematocrit Auto (Bld) [Volume fraction]on 46-42-5993Rozoaexshz (Bld) [Volume fraction]31.9 %Low36.0-48.0[facility] HealthHemoglobin [Mass/volume] in Bloodon 42-25-1561Klfabawgwz (Bld) [Mass/Vol]10.2 g/dLLow 12.0-16.0[facility] HealthLaboratory - Chemistry and Chemistry - challengeon 10-94-7748Qeaqjxm [Mass/Vol]3.9 g/dL3.4-5.0[facility] HealthALP [Catalytic activity/Vol]48 U/B08-548KmzflecuiMadison HealthALT [Catalytic activity/Vol]20 U/U93-47XyrrvjepzMadison Health AST [Catalytic activity/Vol]23 U/Y21-38JaudyifukMadison Health Bilirubin [Mass/Vol]0.5 mg/dL0.2-1.0[facility] HealthCalcium [Mass/Vol]9.1 mg/dL8.5-10.1FKnox Community HospitalChloride [Moles/Vol] 108 mmol/ZIadj81-439KgmrcuakkMadison HealthCO2 [Moles/Vol]24.8 mmol/L 21.0-32.0[facility] HealthCreatinine [Mass/Vol]1.09 mg/dLHigh 0.55-1.02[facility] HealthGFR/1.73 sq M.predicted MDRD (S/P/Bld) [Vol rate/Area]mL/min/{1.73_m2}>=60[facility] HealthGlucose [Mass/Vol]87 mg/mS94-587JjzogiztzMadison HealthPotassium [Moles/Vol] 3.9 mmol/L3.5-5.1FKnox Community HospitalProtein [Mass/Vol]6.8 g/dL 6.4-8.2FBerger Hospitalodium [Moles/Vol]144 mmol/J597-767 [facility] HealthUrea nitrogen [Mass/Vol]17.0 mg/dL7.0-18.0 [facility] HealthUrea nitrogen/Creatinine [Mass ratio]15.6 mg/mg [facility] HealthLaboratory - Hematology and Cell countson 96-87-2791RXR (Bld) [Velocity]12 mm/h<=30[facility] Immature granulocytes/100 WBC (Bld)0.5 %0.0-0.5FKnox Community Hospital Leukocytes [#/volume] corrected for nucleated erythrocytes in Blood by Automated counon 59-19-1734QGZ corrected for nucl RBC Auto (Bld) [#/Vol]3.8 10 3/uLLow 4.0-11.0[facility] HealthLymphocytes Auto (Bld) [#/Vol]on 43-50-3671Ahwddlkkfca (Bld) [#/Vol]1.5 10 3/uL1.2-3.8[facility] HealthLymphocytes/100 WBC Auto (Bld)on 76-80-0645Pblkmafbibv/100 WBC (Bld)40.3 % 20.5-60.0[facility] HealthMCH Auto (RBC) [Entitic mass]on 16-13-3951XVL (RBC) [Entitic mass]31.7 pg26.7-34.0[facility] HealthMCHC Auto (RBC) [Mass/Vol]on 13-59-3345IVAZ (RBC) [Mass/Vol]32.0 g/dL 29.9-35.2FKnox Community HospitalMCV Auto (RBC) [Entitic vol]on 90-56-3870ZBL (RBC) [Entitic vol]99.1 xBRtnu08.0-99.0[facility] HealthMonocytes Auto (Bld) [#/Vol]on 81-18-6037Sloemveyc (Bld) [#/Vol]0.6 10 3/uL0.3-0.8[facility] HealthMonocytes/100 WBC Auto (Bld)on 45-47-6532Zqwgietvr/100 WBC (Bld)16.1 %High1.7-12.0[facility] HealthNeutrophils Auto (Bld) [#/Vol]on 48-86-7203Jcmyzatlkvw (Bld) [#/Vol]1.5 10 3/uL1.4-6.5FKnox Community HospitalNeutrophils/100 WBC Auto (Bld)on 29-33-8742Awvjqzhrdix/100 WBC (Bld)40.2 %Low43.0-75.0[facility] HealthNo Panel Informationon 03-54-3735Gxxyaitdsjg # (Auto)0.1 10 3/uL0.0-0.7 [facility] HealthImmature Granulocyte # (Auto)0.02 10 3/uL 0.00-0.03[facility] HealthPlatelet mean volume Auto (Bld) [Entitic vol]on 01-98-2026Qadxceeu mean volume (Bld) [Entitic vol]9.3 fLLow 9.5-13.5FKnox Community HospitalPlatelets Auto (Bld) [#/Vol]on 86-88-8308Tqsajhgrc (Bld) [#/Vol]236 10 3/rQ402-048UolzsxmnxMadison HealthRBC Auto (Bld) [#/Vol]on 80-63-4689RBR (Bld) [#/Vol]3.22 10 6/uLLow 4.20-5.40[facility] Jewish Hospitalerum or plasma albumin/globulin mass ratioon 56-69-0938Wifcsrq/Globulin [Mass ratio]1.3 {ratio}[facility] Jewish Hospitalerum or plasma anion gap determinationon 86-01-9691Xgaai gap [Moles/Vol]15.1 mmol/LFKnox Community HospitalXR Shoulder - right 2 Viewson 11-08-3911Pvqdmfv Result: 4 views right shoulder, Grashey/Zanca/outlet/axillary, taken today and saved to the permanent medical record. Prosthesis is unchanged in position and alignment. Fracture at the base of the acromion unchanged in appearance.[facility] CenterXR Shoulder - right 2 Viewson 09-09-1351Fpeocnmac Study observation (narrative)[facility] UPPER EXTREMITY W/O CONTRAST RIGHTon 09-08-2023 [...] Coleman Fields MD Transcribed by: DANISHA Technologist: [facility], Radi[facility], - 09/08/2023 Exam Date/Time: 09/06/2023 [...] MD Transcribed by: DANISHA Technologist: ARNULFO DORSEY HealthcareFL UPPER EXTREMITY W/O CONTRAST RIGHTOrdered By: Radiologist Radiology on 24-05-4201VLGP Zoyi Work Phone: ct Upper Extremity w/o Contrast Righton 30-87-4797AU Upper Extremity w/o Contrast RightExam Date/Time: 09/06/2023 [...] Coleman Fields MD Transcribed by: DANISHA Technologist: [facility] LAB MISCELLANEOUS-LCon 46-90-3119DCTN LAB MISCELLANEOUSCOMMENTCox Walnut LawnComment on above:Test Ordered: [id number] Interleukin-6, Serum Interleukin-6, Serum <2.5 pg/mL Reference [...] endotracheal intubation or mechanical ventilation. Performed at: [facility] [id number] PhD Saturnino Morse [facility] TEST [id number]. Joseph Medical Center TEST NAMEinterleukin [address] [place] [address] Original Ordering Provider: DO Jodran Roth [facility] Miscellaneous-LCon 60-00-1181Lfs MiscellaneousCOMMENTInvalid Interpretation Code [facility] HospitalComment on above:Result Comment: Test Ordered: [id number] Interleukin-6, Serum Interleukin-6, Serum <2.5 pg/mL Reference [...] endotracheal intubation or mechanical ventilation. Performed at: [address] [id number] PhD Saturnino MorsePerformed By: #### [id number] ####[facility] [address] [place], [place]CBC w/ Auto Diffon 12-40-8277Vlnpstfa Absolute0.0 E9/LNormal0.0-0.2[facility] Comment on above:Performed By: #### [id number], [id number], [id number] #### [facility] [address], [place] [address]Zlvjafiyx/100 WBC (Bld)0.4 %Normal0.0-2.0FishSaint Luke InstituteComment on above:Performed By: #### [id number], 3472872, [id number] #### [facility] [address], [place] [address]Oct Absolute0.0 E9/LNormal0.0-0.5FGlenbeigh Hospital Comment on above:Performed By: #### [id number], 6814976, [id number] #### [facility] [address] [place] [address] 33122Siwzjczgwod/100 WBC (Bld)0.2 %Normal0.0-8.0[facility] HospitalComment on above:Performed By: #### [id number], 7847393, [id number] #### [facility] [address] [place] [address] 89832Smvgjlcwdin distribution width (RBC) [Ratio]14.3 %High10.9-14.2 [facility] HospitalComment on above:Performed By: #### [id number], 7685783, [id number] #### [facility] [address] [place] [address] 77163Wehhlkcrjs (Bld) [Volume fraction]40.0 %Gouyhq51.0-46.0[facility] HospitalComment on above:Performed By: #### [id number], 1582486, [id number] #### [facility] [address] [place] [address] 39585Zuknsrbuud (Bld) [Mass/Vol]12.7 g/cKFzkujc94.0-16.0[facility] HospitalComment on above:Performed By: #### [id number], 5591036, [id number] #### [facility] [address] [place] [address] 61686Gibdi Absolute0.9 E9/LLow1.0-4.0[facility] Comment on above:Performed By: #### [id number], 7255286, [id number] #### [facility] [address] [place] [address] 02209Vjfgpjugtym/100 WBC (Bld)25.2 %Lsiyyn64.0-50.0[facility] HospitalComment on above:Performed By: #### 1265938, 2045648, [id number] #### [facility] [address], [place] [address]JSC (RBC) [Entitic mass]30.6 kkZclani88.0-34.0[facility] HospitalComment on above:Performed By: #### 4135028, 0252958, [id number] #### [facility] [address] [place], [place] [address]HC (RBC) [Mass/Vol]31.7 g/dQRlykli58.4-36.0[facility] HospitalComment on above:Performed By: #### [id number], 5656722, [id number] #### [facility] [address] [place], [place] [address]V (RBC) [Entitic vol]96.5 xGAhtzjc45.0-100.0[facility] HospitalComment on above:Performed By: #### 1273161, 7738751, [id number] #### [facility] [address] [place] [address] 81048Nhuf Absolute0.3 E9/LNormal0.2-1.0[facility] Comment on above:Performed By: #### [id number], 5638525, [id number] #### [facility] [address] [place] [address] 59707Mrxesdgav/100 WBC (Bld)7.3 %Normal4.0-14.0[facility] HospitalComment on above:Performed By: #### 3151996, 9053385, [id number] #### [facility] [address] [place] [address] 07256Ucdcvr Absolute2.3 E9/LNormal2.0-7.5FGlenbeigh Hospital Comment on above:Performed By: #### 9161879, 4940099, 67433933 #### [facility] [address] [place] [address] 69796Kglldl Auto66.9 %Fxnnle17.0-75.0[facility] Comment on above:Performed By: #### 9991212, 4939163, 33742058 #### [facility] [address], [place] [address]Ubtugzel099.0 E9/YVzovfh932.0-500.0[facility] Comment on above:Performed By: #### 7305003, 3672024, 53861027 #### [facility] [address] [place] [address] 31114Rekjezln mean volume (Bld) [Entitic vol]7.4 fLNormal6.4-10.8 [facility] HospitalComment on above:Performed By: #### 5814628, 3147389, [id number] #### [facility] [address] [place] [address] 30694AOJ3.1 E12/LLow4.3-5.9[facility] HospitalComment on above:Performed By: #### 3490137, 5460994, 99084393 #### [facility] [address] [place] [address] 89705WRF0.4 E9/LLow4.0-11.0[facility] HospitalComment on above:Performed By: #### 3038316, 6423571, [id number] #### [facility] [address] [place] [address] 24126EYOWVQIQPSzcttjr By: SYSTEM SYSTEM on 80-07-3956VCCep/dLNormal <=1.9mg/dLRemisol ChemCRPon 29-08-2495RCU [Mass/Vol]mg/LNormal<=1.9[facility] HospitalComment on above:Performed By: #### 0873913, 7107898, [id number] #### [facility] [address] [place] [address] 37418VU UPPER EXTREMITY W/O CONTRAST RIGHTon 26-29-7885Vyrheaayb Study observation (narrative)[facility] LawnConsent for Treatmenton 09-06-2023 Consent for [id number]#1.00TIFFNormal [facility] HospitalHEMATOLOGYOrdered By: SYSTEM SYSTEM on 09-06-2023 Basophil Absolute0.0 E9/LNormal0.0 - 0.2 E9/LRemisol HemeBasophils/100 WBC (Bld) 0.4 %Normal0.0 - 2.0 %Remisol HemeEos Absolute0.0 E9/LNormal0.0 - 0.5 E9/L Remisol HemeEosinophils/100 WBC (Bld)0.2 %Normal0.0 - 8.0 %Remisol Heme Erythrocyte distribution width (RBC) [Ratio]14.3 %High10.9 - 14.2 %Remisol Heme Hematocrit (Bld) [Volume fraction]40.0 %Lijcfk34.0 - 46.0 %Remisol Heme Hemoglobin (Bld) [Mass/Vol]12.7 g/xHJkpzwf52.0 - 16.0 gm/dLRemisol HemeLymph Absolute0.9 E9/LLow1.0 - 4.0 E9/LRemisol HemeLymphocytes/100 WBC (Bld)25.2 % Qfypmo18.0 - 50.0 %Remisol HemeMCH (RBC) [Entitic mass]30.6 nqUfstef20.0 - 34.0 pgRemisol HemeMCHC (RBC) [Mass/Vol]31.7 g/hGZpofta21.4 - 36.0 gm/dLRemisol Heme MCV (RBC) [Entitic vol]96.5 cZPrqshy15.0 - 100.0 fLRemisol HemeMono Absolute0.3 E9/LNormal0.2 - 1.0 E9/LRemisol HemeMonocytes/100 WBC (Bld)7.3 %Normal4.0 - 14.0 %Remisol HemeNeutro Absolute2.3 E9/LNormal2.0 - 7.5 E9/LRemisol HemeNeutro Auto 66.9 %Mppybb01.0 - 75.0 %Remisol SmgyRzkelloo644.0 E9/VFkgqvn780.0 - 500.0 E9/L Remisol HemePlatelet mean volume (Bld) [Entitic vol]7.4 fLNormal6.4 - 10.8 fL Remisol HemeRBC4.1 E12/LLow4.3 - 5.9 E12/LRemisol HemeWBC3.4 E9/LLow4.0 - 11.0 E9/LRemisol HemeHEMATOLOGYOrdered By: Petr Mack on 39-01-8201ZIU (Bld) [Velocity]14 mm/hNormal0 - 34 mm/hrFT HemeAutoSSLab Miscellaneous-LCon 64-26-2997Dkgo Shvx008082Myyrtnc Interpretation [facility] Comment on above:Performed By: #### [id number] ####Yasmani [facility] Ckyitlkpdm[address] TremayneEL [place], [place]Okvs Nameinterleukin 6Invalid Interpretation [facility] CenterComment on above:Performed By: #### [id number] ####Yasmani [facility] Hpkyfcbqhw[address] Rodrigueznyu langone tisch hospitalolvinEL [place], [place]Uhmhcdooc Orderon 13-85-8697Tgtknbnyi Order [id number]#1.00TIFRiverside Methodist HospitalReference Laboratory TestingOrdered By: Jojo Gonsales on 89-88-2691Pbck [id number] 1Invalid Interpretation [facility] SendOutsSSTest Nameinterleukin [address] [facility] SendOutsSSSed Rate Automatedon 09-47-2297XZT (Bld) [Velocity]14 mm/hNormal0-34[facility] HospitalComment on above: Performed By: #### [id number], [id number] #### Yasmani [facility] [address] [place], [place] [address]Rxdqcqcij Orderon 78-13-6216Kkoqkplud Order [id number]#1.00[facility] HospitalBasophils Auto (Bld) [#/Vol]on 18-86-6144Jyfubnavf (Bld) [#/Vol]0.0 10 3/uL0.0-0.1FKnox Community HospitalBasophils/100 WBC Auto (Bld)on 94-10-8269Ekyyndjyg/100 WBC (Bld)0.8 %0.2-2.0[facility] Cholesterol in LDL Calc [Mass/Vol]on 43-63-5929Gbpwzxjaiuf in LDL [Mass/Vol] 152.0 mg/dLMadison HealthComment on above:<100 mg/dl YLNVYKS249-540 mg/dl NEAR OR ABOVE MPZIWWQ169-248 mg/dl BORDERLINE BRUI433-750 mg/dl HIGH>190 mg/dl VERY HIGHCholesterol in VLDL Calc [Mass/Vol]on 08-30-2023 Cholesterol in VLDL [Mass/Vol]20.2 mg/dLMadison Health Eosinophils/100 WBC Auto (Bld)on 65-64-5646Arxeclaueat/100 WBC (Bld)4.2 %0.9-7.0 [facility] HealthErythrocyte distribution width Auto (RBC) [Ratio]on 54-41-1217Kanjuoelweq distribution width (RBC) [Ratio]13.4 %11.0-15.0 [facility] HealthEstimated glomerular filtration rate (GFR) non- Americanon 00-02-7191AGM/1.73 sq M.predicted among non-blacks MDRD (S/P/Bld) [Vol rate/Area]59 mL/min/{1.73_m2}>=60[facility] HealthGlobulin Calc (S) [Mass/Vol]on 45-56-9139Nvizrcux (S) [Mass/Vol]3.4 g/dL [facility] HealthHematocrit Auto (Bld) [Volume fraction]on 52-09-2525Fhyyvpkvrh (Bld) [Volume fraction]39.5 %36.0-48.0[facility] HealthHemoglobin [Mass/volume] in Bloodon 05-70-6822Upupotxguo (Bld) [Mass/Vol]12.5 g/dL12.0-16.0[facility] HealthLaboratory - Chemistry and Chemistry - challengeon 71-74-2893Yeestdm [Mass/Vol]3.7 g/dL 3.4-5.0[facility] HealthALP [Catalytic activity/Vol]45 U/L46-116 [facility] HealthALT [Catalytic activity/Vol]23 U/L14-59 [facility] HealthAST [Catalytic activity/Vol]21 U/L15-37 [facility] HealthBilirubin [Mass/Vol]0.4 mg/dL0.2-1.0[facility] HealthCalcium [Mass/Vol]9.0 mg/dL8.5-10.1FKnox Community HospitalChloride [Moles/Vol]106 mmol/I25-935UjvoojmwoMadison HealthCholesterol [Mass/Vol]246 mg/dL<=200[facility] Cholesterol in HDL [Mass/Vol]74 mg/eI83-55NiqnssvvvMadison Health Comment on above:> or =60 mg/dl - LOW CARDIOVASCULAR RISK<40 mg/dl - HIGH CARDIOVASCULAR RISKCO2 [Moles/Vol]25.5 mmol/L21.0-32.0[facility] HealthCreatinine [Mass/Vol]0.96 mg/dL0.55-1.02[facility] GFR/1.73 sq M.predicted MDRD (S/P/Bld) [Vol rate/Area]mL/min/{1.73_m2}>=60 [facility] HealthGlucose [Mass/Vol]86 mg/aI47-467VwphmfzmoMadison HealthPotassium [Moles/Vol]3.8 mmol/L3.5-5.1FKnox Community HospitalProtein [Mass/Vol]7.1 g/dL6.4-8.2FKnox Community Hospital Sodium [Moles/Vol]142 mmol/X884-580QotektseeMadison HealthTriglyceride [Mass/Vol]101 mg/dL<=150Mad[facility] HealthTSH Qn1.531 m[IU]/L 0.358-3.740[facility] HealthUrea nitrogen [Mass/Vol]20.0 mg/dL 7.0-18.0[facility] HealthUrea nitrogen/Creatinine [Mass ratio] 20.8 mg/mgMadison HealthLaboratory - Hematology and Cell countson 33-97-1569VIM (Bld) [Velocity]16 mm/h<=30[facility] HealthImmature granulocytes/100 WBC (Bld)0.3 %0.0-0.5FKnox Community HospitalLeukocytes [#/volume] corrected for nucleated erythrocytes in Blood by Automated counon 21-31-4553BMD corrected for nucl RBC Auto (Bld) [#/Vol]3.8 10 3/uL4.0-11.0[facility] HealthLymphocytes Auto (Bld) [#/Vol]on 58-79-7692Ppqgahmojil (Bld) [#/Vol]1.7 10 3/uL1.2-3.8[facility] HealthLymphocytes/100 WBC Auto (Bld)on 61-05-7151Tnzydwymwkl/100 WBC (Bld)44.8 % 20.5-60.0[facility] HospitalH Auto (RBC) [Entitic mass]on 94-37-6575HYF (RBC) [Entitic mass]31.1 pg26.7-34.0[facility] HealthMCHC Auto (RBC) [Mass/Vol]on 64-44-0081NDMZ (RBC) [Mass/Vol]31.6 g/dL 29.9-35.2FKnox Community HospitalMCV Auto (RBC) [Entitic vol]on 21-26-4934ARZ (RBC) [Entitic vol]98.3 fL81.0-99.0[facility] HealthMonocytes Auto (Bld) [#/Vol]on 73-06-9182Nddoqdlju (Bld) [#/Vol]0.5 10 3/uL0.3-0.8Mad[facility] HealthMonocytes/100 WBC Auto (Bld)on 94-29-0803Tgdqnlcba/100 WBC (Bld)14.1 %1.7-12.0[facility] Neutrophils Auto (Bld) [#/Vol]on 84-85-3057Bmaeikhndua (Bld) [#/Vol]1.4 10 3/uL 1.4-6.5FKnox Community HospitalNeutrophils/100 WBC Auto (Bld)on 44-63-0174Vbxzwjiiqsl/100 WBC (Bld)35.8 %43.0-75.0[facility] HealthNo Panel Informationon 83-85-3324Kdbctktbvma # (Auto)0.2 10 3/uL0.0-0.7 [facility] HealthImmature Granulocyte # (Auto)0.01 10 3/uL 0.00-0.03[facility] HealthPlatelet mean volume Auto (Bld) [Entitic vol]on 32-87-0626Dwlbedfw mean volume (Bld) [Entitic vol]9.1 fL9.5-13.5 [facility] HealthPlatelets Auto (Bld) [#/Vol]on 08-30-2023 Platelets (Bld) [#/Vol]181 10 3/rI839-543OjmfqnrywMadison HealthRBC Auto (Bld) [#/Vol]on 67-37-6131IRI (Bld) [#/Vol]4.02 10 6/uL4.20-5.40[facility] Jewish Hospitalerum or plasma albumin/globulin mass ratioon 08-30-2023 Albumin/Globulin [Mass ratio]1.1 {ratio}[facility] Hospitalerum or plasma anion gap determinationon 58-97-9072Mxfab gap [Moles/Vol]14.3 mmol/L [facility] Hospitalerum or plasma total cholesterol/high density lipoprotein (HDL) cholesterol mass albina 68-87-2593Kkjxjxpuldd.total/Cholesterol in HDL [Mass ratio]3.3 {ratio}Madison HealthComment on above:3.3 - 4.4 LOW RISK4.4 - 7.1 AVERAGE RISK7.1 - 11.0 MODERATE RISK>11.0 HIGH RISKXR Shoulder - right 2 Viewson 48-03-6570Uevyixn Result: Two views of the right shoulder; Grashey and axillary were taken today in the office are reviewed, and saved to the permanent medical record. The prosthesis is unchanged in position and alignment. There is no prosthetic loosening or failure. No scapular notching. The scapular spine appears to be intact. No obvious fractures at the coracoid process.[facility] Medical CenterXR Shoulder - right 2 Viewson 54-08-0466Htkjrcaov Study observation (narrative)[facility] HOSPITALNatalie HealthcareIntraOperative Documentson 87-78-4256TgrmrApntkgfrb [id number]#1.00CD:127NormalLima City HospitalAuto Diffon 50-80-3262Qsmqpuwxw/100 WBC (Bld)0.2 %Normal0.0-2.0 [facility] HospitalComment on above:Order Comment: Order Added by Discern Expert.Performed By: #### 1414167, 0785610, 9968170, 7281629, 28012367, 3541442 #### [facility] [address] [place] [address]Vvvcvawex/Leukocytes Auto (Bld) [Pure # fraction]0.0 E9/LNormal 0.0-0.2Fisher [facility] Harbor HospitalComment on above:Order Comment: Order Added by Discern Expert.Performed By: #### 8699536, 1970518, 2323970, 1929083, 58365837, 6071789 #### [facility] [address], [place] [address]Vgnoqzlyyoe/100 WBC (Bld)0.0 %Normal0.0-8.0[facility] HospitalComment on above:Order Comment: Order Added by Discern Expert.Performed By: #### 4910407, 0855801, 5791870, 5602251, 31869796, 0638023 #### [facility] [address], [place] [address]Xrrmfpejfnb/Leukocytes Auto (Bld) [Pure # fraction]0.0 E9/L Normal0.0-0.5Fisher [facility] Harbor HospitalComment on above:Order Comment: Order Added by Discern Expert.Performed By: #### 8732119, 5242190, 1288829, 8941137, 35945109, 5765145 #### [facility] [address], [place] [address]Tugqcpmbwrd/100 WBC (Bld)7.9 %Low14.0-50.0[facility] HospitalComment on above:Order Comment: Order Added by Discern Expert.Performed By: #### 2843933, 3692622, 4027513, 9907580, 72352107, 2755543 #### [facility] [address] [place] [address]Tnnrbmyfobp/Leukocytes Auto (Bld) [Pure # fraction]0.8 E9/LLow 1.0-4.0[facility] HospitalComment on above:Order Comment: Order Added by Discern Expert.Performed By: #### 1130622, 7692321, 8282419, 4558914, 57540939, 5163894 #### [facility] [address] [place] [address]Alkomjmmt/100 WBC (Bld)14.0 %Normal4.0-14.0[facility] HospitalComment on above:Order Comment: Order Added by Discern Expert.Performed By: #### 8409683, 6406464, 1621695, 5673515, 82498516, 3517815 #### [facility] [address] [place] [address]Qkzvivafj/Leukocytes Auto (Bld) [Pure # fraction]1.3 E9/LHigh 0.2-1.0[facility] HospitalComment on above:Order Comment: Order Added by Discern Expert.Performed By: #### 5019157, 1504121, 2709725, 6697236, 69471361, 5980405 #### [facility] [address] [place] [address]Yixaixqtvrs/100 WBC (Bld)77.9 %High36.0-75.0[facility] HospitalComment on above:Order Comment: Order Added by Discern Expert. Performed By: #### 2789330, 8010090, 7443540, 2283440, 22576761, 5506099 #### [facility] [address] [place] [address]Sthfudokjwe/Leukocytes Auto (Bld) [Pure # fraction]7.5 E9/L Normal2.0-7.5FGlenbeigh HospitalComment on above:Order Comment: Order Added by Discern Expert.Performed By: #### 7274072, 7408353, 2079876, 8461476, 07174238, 9690284 #### [facility] [address], [place] [address]FIQcw 16-07-7598Yrbq nitrogen [Mass/Vol]20 mg/dLNormal5-21 [facility] HospitalComment on above:Performed By: #### 4393919, 5128300, 9035934, 2199047, 70451519, 2161441 #### [facility] [address], [place] [address]PKL w/ Auto Diffon 43-45-9912Obdsnvmazqn distribution width (RBC) [Ratio]14.6 %High10.9-14.2FGlenbeigh HospitalComment on above: Performed By: #### 0533517, 3179293, 2269871, 6637155, 30765158, 7996993 #### [facility] [address], [place] [address]Mrahnspoof (Bld) [Volume fraction]29.7 %Low34.0-46.0[facility] HospitalComment on above:Performed By: #### 1635502, 9840742, 9589771, 0348170, 18244489, 5398433 #### [facility] [address], [place] [address]Ijobjyfair (Bld) [Mass/Vol]10.0 g/dLLow12.0-16.0[facility] HospitalComment on above:Performed By: #### 7149201, 6576344, 9253425, 1613542, 85395702, 7285323 #### [facility] [address], [place] [address]HSD (RBC) [Entitic mass]32.5 kzYaasau58.0-34.0[facility] HospitalComment on above:Performed By: #### 5600975, 2576927, 9605323, 6597498, 96143308, 0677130 #### [facility] [address], [place] [address]AJCL (RBC) [Mass/Vol]33.6 g/jEHbxqxk34.4-36.0[facility] HospitalComment on above:Performed By: #### 7600705, 7796148, 5653074, 1814787, 01783556, 0118462 #### [facility] [address], [place] [address]MDP (RBC) [Entitic vol]96.7 fOSlktkl78.0-100.0[facility] HospitalComment on above:Performed By: #### 9817452, 2562325, 4797880, 1305525, 99156801, 2268246 #### [facility] [address] [place] [address]Zknpmqsd mean volume (Bld) [Entitic vol]7.1 fLNormal6.4-10.8 [facility] HospitalComment on above:Performed By: #### 6091894, 7073129, 1623149, 6026119, 57125348, 5371380 #### [facility] [address] [place] [address]Toyfhlsji (Bld) [#/Vol]215.0 E9/SEchopm128.0-500.0[facility] HospitalComment on above:Performed By: #### 1218483, 3323757, 0942282, 1949011, 96023636, 8626073 #### [facility] [address], [place] [address]LPT (Bld) [#/Vol]3.1 E12/LLow4.3-5.9[facility] Comment on above:Performed By: #### 5250526, 4491416, 2458226, 2021803, 74987660, 8101160 #### [facility] [address] [place] [address]YQY corrected for nucl RBC Auto (Bld) [#/Vol]9.6 E9/LNormal 4.0-11.0[facility] HospitalComment on above:Performed By: #### 4356458, 2873508, 1609757, 2545325, 76282672, 5726015 #### [facility] [address] [place], [place] [address]RULLBOORIYueickt By: SYSTEM SYSTEM on 94-49-1292Uxgyz gap [Moles/Vol]6 mmol/LNormal6 - 16 mEq/LFTMC RemisolChloride [Moles/Vol]118 mmol/L Jrtt677 - 111 mmol/LFTMC RemisolCO2 [Moles/Vol]23 mmol/JGmbazu21 - 31 mmol/LFTMC RemisolCreatinine [Mass/Vol]0.9 mg/dLNormal0.5 - 1.3 mg/dLNORTHWEST [facility] [place] RemisolGFR/1.73 sq M.predicted among non-blacks MDRD (S/P/Bld) [Vol rate/Area]72 mL/min/1.73 m2 Normal>=59mL/min/1.73 m2[facility] [place] Chem SComment on above:Interpretive Data: Chronic kidney disease could be indicated at eGFR's of less than 60 mL/min/1.73m2. Kidney failure is indicated at less than 15 mL/min/1.73m2.Potassium [Moles/Vol] 4.0 mmol/LNormal3.5 - 5.3 mmol/LFTMC RemisolSodium [Moles/Vol]143 mmol/LNormal 135 - 145 mmol/LFTMC RemisolUrea nitrogen [Mass/Vol]20 mg/dLNormal5 - 21 mg/dL [facility] RemisolConsent for Anesthesiaon 00-45-3917Iaojzmc for Anesthesia [id number]#1.00CD:127NormalLima City HospitalCreatinineon 07-14-5890Dwsgowgomx [Mass/Vol]0.9 mg/dLNormal0.5-1.3[facility] Harbor HospitalComment on above:Performed By: #### 7109957, 5975455, 6432017, 8525158, 12653384, 6213374 ####[facility] [address] Rodriguezny[address] langone tisch hospitalolvinEL [place], [place] [address]Jmphwtsmn Instructionson 04-07-2023 Discharge [id number]#1.00CD:127Normal Yasmani [facility] HospitalDischarge Note-Nursingon 99-67-2205Dpbznivuy Note-Nursing RADHA ZAIDI :1960 Visit Date:04/06/2023 Inpatient [...] Jordan Yuan When: Where: [address] [place] [address]- Business (1) Follow Up with JOHN ASHBY When: In 0 days [facility] [address] [facility] [place] [address]- Business (1) Medications What How Much When Instructions Next Dose Changed acetaminophen-oxycodone (Percocet 5 mg-325 mg oral tablet) See instructions 1-2 tab(s) Kqibx8hb Pickup at [facility]/pharmacy #6177 Next dose due after 10am Unchanged buPROPion (Wellbutrin XL 300 mg/ 24 hours Tab-ER) 1 Tablets By Mouth 2 times a day 04/07/23 @ 9pm Unchanged celecoxib (CeleBREX 100 mg Cap) 1 Capsules By Mouth 2 times a day as needed for for pain Pickup at [facility]/pharmacy #6177 04/07/23 @ 9pm Unchanged cephalexin (Keflex 500 mg Cap) 1 Capsules By Mouth Every 8 hours Duration: 7 Days Pickup at [facility]/pharmacy #6177 04/07/23 @ 2pm and bedtime Unchanged docusate (Colace 100 mg Cap) 1 Capsules By Mouth 2 times a day as needed for for constipation Pickup at [facility]/pharmacy #6177 04/07/23 @ 9pm Unchanged leflunomide [...] Every day 04/08/23 @ 9am Pharmacy Information [facility]/pharmacy #[id number]: [address], [place] [id number] [phone] Test Results CBC BMP WBC: 9.6 E9/L [...] Screw, Non-Locking, 4.5 x 28 mm, Shoulder Qvdwcrc4204/06/2023 [employer] Revers Modular Glenoid System, peripheral Screw, Non-Locking, 4.5 x 32 mm Shoulder Implant 04/06/2023 [employer] revers Modular Glenoid System, Peripheral Screw, Non-Locking, 5.5 x 20 mm, Shoulder Implant(2), 04/06/2023 [employer] Revers Modular Glenoid System, Glenosphere, 36 +4 Lateralized/ 24, Shoulder Implant 04/06/2023 [employer] revers [place] humeral Stem Size 9, Shoulder Implant 04/06/2023 UniversRevers SutureCap, 36 neutral, shoulder Implant 04/06/2023 universrevers Humeral Insert, small, 36, +6, Shoulder (more content not included)...NormalLima City HospitalHEMATOLOGYOrdered By: SYSTEM SYSTEM on 33-19-0399Crnnqoxkb/100 WBC (Bld)0.2 %Normal0.0 - 2.0 %[facility] HemeAutoSS [...] E9/L [facility] HemeAutoSSHEMATOLOGYOrdered By: Lizet Hall on 29-70-5020Wpckowynmsb distribution width (RBC) [Ratio]14.6 %High10.9 - 14.2 %[facility] HemeAutoSSHematocrit (Bld) [Volume fraction]29.7 %Low34.0 - 46.0 %[facility] HemeAutoSSHemoglobin (Bld) [Mass/Vol]10.0 g/dLLow12.0 - 16.0 gm/dLFTMC HemeAutoSSMCH (RBC) [Entitic mass] 32.5 grGvdfrq51.0 - 34.0 pgFTMC HemeAutoSSMCHC (RBC) [Mass/Vol]33.6 g/dLNormal 31.4 - 36.0 gm/dLNORTHWEST SURGICAL [facility] [place] HemeAutoSSMCV (RBC) [Entitic vol]96.7 aQJrbexf98.0 - 100.0 fLNORTHWEST SURGICAL HOSPITAL – [place] HemeAutoSSPlatelet mean volume (Bld) [Entitic vol]7.1 fLNormal6.4 - 10.8 fLNORTHWEST SURGICAL HOSPITAL – [place] HemeAutoSSPlatelets (Bld) [#/Vol]215.0 E9/CTkcmic857.0 - 500.0 E9/LFNORTHWEST C[facility] HemeAutoSSRBC (Bld) [#/Vol]3.1 E12/LLow4.3 - 5.9 E12/LFNORTHWEST CENTER FOR BEH[facility] HemeAutoSSWBC corrected for nucl RBC Auto (Bld) [#/Vol]9.6 E9/LNormal4.0 - 11.0 E9/[facility] HemeAutoSSInpatient Clinical Summaryon 17-06-4002Vjmbkcsvs Clinical Summary [place] [address] Clinical Summary Person Information: Name: RADHA ZAIDI Age: 62 Years : 1960 Sex: Female PCP: JOHN ASHBY DO Marital Status: Phone: [phone] Race: White Ethnicity: Non- or Language: Vietnamese Visit Id: Visit Reason: OA RIGHT SHOULDER Speciality: Acuity: Enc Type: Observation Med Service: Medical Arrival: 04/06/2023 06:09:55 Discharge: Dispo Type: Address: [address] [place] [address] [address] [place] [id number] Provider Notes: Patient: RADHA ZAIDI Age: 62 [...] Follow up: With: Address: When: Jordan Yuan [address] [place] [address] Business (1) 04/19/2023 2:15 PM With: Address: When: JOHN ASHBY [address] [place] [address] Business (1) Patient Education Information: Iris Yuan - Shoulder Replacement (Custom)[facility] Inpatient Patient Summaryon 29-54-3994Hxfxyeqlu Patient Summary [address] [address] Patient Discharge Instructions PERSON INFORMATION [...] Follow up: With: Address: When: Jordan Yuan [address] [place] [phone] Business (1) 04/19/2023 2:15 PM With: Address: When: JOHN ASHBY [address], [place] [phone] Business (1) In the event that this [...] to Continue Taking That Have Changed [facility], [address], [place] [phone], [phone] START: acetaminophen-oxycodone (Percocet 5 mg-325 mg oral tablet) 1-2 tab(s) Oral q4hr. Refills: 0. Last Dose: Next Dose: STOP: acetaminophen-oxycodone (Percocet 5 mg-325 mg oral tablet) 1 Tablets By Mouth 3 times a day. Medications to Continue with No Changes [facility]/pharmacy #6177, [address], [place] [phone], [phone] celecoxib (CeleBREX 100 mg Cap) 1 Capsules [...] Tablets By Mouth every day. Pharmacy Information: [facility] Tabitha [phone] (more content not included)...Normal [facility] HospitalIntraOperative Documentson 91-71-7267QuuqePmlnnmzud [id number]#1.00CD:127[facility] HospitalIntraOperative Documents [id number]#1.00CD:[address] [place], [place] [address]Lyteson 37-76-4874Gfinu gap [Moles/Vol]6 mmol/LNormal6-16[facility] HospitalComment on above:Performed By: #### 5422751, 6063124, 9930209, 1773154, 42900088, 3017704 ####[facility] [address] [place], [place] [address]Bllrounk [Moles/Vol]118 mmol/EJerx788-205MhrbyuLima City HospitalComment on above:Performed By: #### 9572827, 7500011, 5160364, 0836388, 52471689, 7974648 ####[facility] [address] [place], [place] [address]TU2 [Moles/Vol]23 mmol/DPwxhfq19-40 [facility] HospitalComment on above:Performed By: #### 6376391, 2386907, 5925549, 0858517, 72691183, 5909335 ####[facility] [address] [place], [place] [address]Zvrbgeiyi [Moles/Vol]4.0 mmol/LNormal 3.5-5.3FGlenbeigh HospitalComment on above:Performed By: #### 9182094, 9246945, 8086915, 2285482, 12963413, 5117399 ####[facility] [address] [place] [address]Gcyafz [Moles/Vol]143 mmol/LNormal 135-145Fisher Medstar Harbor HospitalComment on above:Performed By: #### 6719280, 8421165, 5953630, 7018233, 03758944, 1035028 ####[facility] [address] [place], [place] [address]Tccn OR Intraoperative Recordon 80-43-7022Mvvh OR Intraoperative RecordIntraOp Document Type FT Summary Primary Physician: Jordan Yuan DO Finalized Date/Time: 04/07/23 14:30:58 Pt. Name: ZAIDIRADHA/Sex: 1960 Female Med Rec #: [id number] Physician: Jordan Yuan DO Financial #: [id number] Pt. Type: A Room/Bed: [place] [address] Admit/Disch: 04/06/23 06:09:55 - 04/07/23 09:30:00 Institution: [...] 0836. Patient transported via cart back to [place] [address] and placed on ZU11pjmwpzj by ESTRELLITA De La Fuente. 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 house supervisor Last Modified By: Wanda CARBON SEQUESTRATION PLANT ENGINEER, Sharmaine Goldman RN, Dennis Goldman RN, Dennis Curry 04/07/23 14:28:51 04/06/23 11:35:47 04/06/23 11:35:47 Entry 4 Entry 5 Entry 6 Case Attendee Valerie CARBON SEQUESTRATION PLANT ENGINEER, Jena Taylor CST, John Role Performed Scrub - Primary Scrub - Primary CARBON SEQUESTRATION PLANT ENGINEER/SA Time In 04/06/23 09:32:00 04/06/23 09:32:00 [...] Yuan DO, Krupp RN, Dennis Curry, Valerie CARBON SEQUESTRATION PLANT ENGINEER, Johnathan Hernandez Sydney A, Wilhelm CST, [...] initiates traffic control (more content not included)...NormalFisher [facility]ress Medical CenterMain OR PACU I Recordon 12-61-7571Ijkg OR PACU I RecordPACU Phase I Document Type FT Summary Primary Physician: Jordan Yuan DO Finalized Date/Time: 04/07/23 08:05:19 Pt. Name: RADHA ZAIDI /Sex: 1960 Female Med Rec #: [id number] Physician: Jordan Yuan DO Financial #: [id number] Pt. Type: O [facility] Admit/Disch: 04/06/23 06:09:55 - Institution: Case Times [...] RN 04/07/23 08:04 Cate Gonsales RN 04/07/23 08:05[facility] HospitalPatient Education - Text 57-01-5852Qvlpltf Education - [place], [place] [facility] DISCHARGE INSTRUCTIONS: SHOULDER REPLACEMENT [...] persistent vomiting. Jordan Yuan DO [facility] [address] [place] [address] Reviewed: NoKettering Health PreblePreoperative Documentson 69-87-7974Ratbsthxcsok Documents [id number]#1.00CD:127[facility] HospitalProgress Note-Physicianon 78-17-9843Xdqhcuhe Note-PhysicianPatient: RADHA ZAIDI Age: 62 years Sex: [...] Diastolic Blood Pressure 63 mmHg SpO2 94 %NormalLima City HospitalComment on above:Result Comment: Electronically Signed By: Jordan Yuan DO\.br\Date and Time Signed: 04/07/23 07:40 EDTeGFRon 88-86-9127TWY/1.73 sq M.predicted among non-blacks MDRD (S/P/Bld) [Vol rate/Area]72 mL/min/1.73 t6Gkfaqt>=59[facility] Comment on above:Order Comment: Order added by Discern Expert.Result Comment: Chronic kidney disease could be indicated at eGFR's of less than 60 mL/min/1.73m2. Kidney failure is indicated at less than 15 mL/min/1.73m2. Performed By: #### 3362387, 2675190, 6551729, 0957159, 80648399, 9755762 ####[place] [address] [place] [address] ABO/Rhon 95-24-2873ALQ/RhPositiveInvalid Interpretation [facility], Cancer CenterComment on above:Performed By: #### 82002751, 11864250, 56388768, 9636206 ####[address] [address] ABO/Rh History Checkon 06-86-0584FCF/Rh History CheckVerified Hx Blood Type [facility] HospitalComment on above:Performed By: #### 25510984, 95467996, 24498254, 9154580 ####[address] [address]NJTZrr 21-56-5092NQKA Gel InterpNegativeNormal [facility] HospitalComment on above:Performed By: #### 91031970, 75470082, 93449820, 0830893 ####[place] [address] [place], [place] [address]XFHDG BANKOrdered By: Deyanira Nunez on 04-06-2023 ABO/Rh InterpPositiveInvalid Interpretation [facility] BB SubsectionABSC Gel InterpNegative (04/06/23 7:23 AM)[facility] BB SubsectionBlood Bank ID#on [id number] Invalid Interpretation [facility] MD, Cancer CenterComment on above:Performed By: #### 90589874, 17161379, 58577138, 3512735 ####[facility] [address] [place], [place] [address]Ycjfmpb for Treatmenton 04-06-2023 Consent for [id number]#1.00CD:127Notessie Gruber Medstar Harbor HospitalH&P Updateon 04-06-2023H&P Update [id number]#1.00CD:127AlyssaLima City HospitalInsurance Correspondence Officeon 01-30-6623Mjoxtfvca Correspondence [id number]#1.00CD:127NotessieLima City HospitalMain OR Preoperative Recordon 54-96-0832Qaxc OR Preoperative RecordPreOp Document Type FT Summary Primary Physician: Jordan Yuan DO Finalized Date/Time: 04/06/23 09:32:24 Pt. Name: ZAIDIRADHA/Sex: 1960 Female Med Rec #: [id number] Physician: Jodran Yuan DO Financial #: [id number] Pt. Type: A Room/Bed: [facility] Admit/Disch: 04/06/23 06:09:55 - Institution: Case Times [...] Signatures Signed By: Dennis Goldman RN 04/06/23 09:32NotessieLima City HospitalMonitor Record on 78-33-2403Zcnleqt [id number]#1.00CD:127 AlyssaLima City HospitalMonitor Record [id number]#1.00CD:127NotessieLima City HospitalMonitor [id number]#1.00CD:127Normal Yasmani [facility] HospitalOperative Reporton [id number] ReportPatient: RADHA ZAIDI Age: 62 years Sex: Female : 1960 Associated Diagnoses: None Author: Jordan Yuan DO DATE OF SURGERY: 04/06/2023 SURGEON: Jordan Yuan D.O. CENSUS ENUMERATOR: Anival Flores CFA PREOPERATIVE DIAGNOSIS: Massive rotator [...] 3. size +6 humeral insert 4. Revers [place] size 9 stem with 36 (neutral) Suturecup OPERATIVE INDICATIONS: Radha is a 62-year-old rcxvs-krjk-azwincft female who has had persistent right shoulder [...] deficiency. The depth-stop (more content not included)...Normal [facility] HospitalComment on above:Result Comment: Electronically Signed [...] Using maximal sterile barrier technique per current [facility] guidelines including hand hygeine, Guidance [...] The patient tolerated the procedure as expected.[facility] HospitalComment on above:Result Comment: Electronically Signed By: Yanick Rai DO\.br\Date and Time Signed: 04/06/23 08:44 EDT Progress Note-Physicianon [id number] Note-PhysicianPatient: RADHA ZIADI Age: 62 years Sex: Female : 1960 Associated Diagnoses: None Author: Yanick Rai DO Postoperative Information Postoperative disposition: Postoperative disposition: To PACU. Optimetrix number: Optimetrix number [id number]. Anesthetic utilized: General. Regional: Interscalene Block. 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 Family History: Primary malignant neoplasm of prostate Father Acute myocardial infarction Mother Procedure history: Cervical laminectomy (2739062391). Amputation of finger (391011422). Removal of lung, Partial (30885). Open reduction and internal fixation of fracture Leg (127627492). Foot surgery (0554430527). Lumbar discectomy (407503910). Social History Social & Psychosocial Habits Alcohol [...] clear to auscultation. (more content not included)... [facility] HospitalComment on above:Result Comment: Electronically Signed By: Yanick Rai DO.zari\Date and Time Signed: 04/06/23 08:05 EDT XR Shoulder Complete Righton 43-99-5814QM Shoulder Complete RightExam Date/Time: 04/06/2023 11:58 EDT [...] Ka,r in mGy = na DAP = naNormalLima City HospitalConsent for Procedure/Surgeryon 53-44-6482Glduhcv for Procedure/Surgery [id number]#1.00CD:127[facility] HospitalCT Upper Extremity w/o Contrast Righton 00-48-2885LI Upper Extremity w/o Contrast RightExam Date/Time: 03/24/2023 [...] Gigi Suazo DO Transcribed by: DANISHA Technologist: [facility] HospitalABO/Rh Retypeon 00-55-1273XGU/Rh Retype InterpPositiveInvalid Interpretation [facility], MD, Cancer CenterComment on above:Performed By: #### [id number] ####[facility] Abdiizoj[address] [place], [place] [address]NKYKH BANK Ordered By: Deyanira Longoria on 02-81-9640ZNH/Rh Retype InterpPositiveInvalid Interpretation [facility] BB SubsectionBUNon 85-80-6103Vivq nitrogen [Mass/Vol]28 mg/dLHigh5-21Lima City HospitalComment on above:Performed By: #### [id number], 6327788, 8502560, 3554167, 9729488, 8170785 ####[facility] [address] [place], [place] [address]IUQ w/Indiceson 03-24-2023 Erythrocyte distribution width (RBC) [Ratio]14.5 %High10.9-14.2FGlenbeigh HospitalComment on above:Performed By: #### 13095782, 4965880, 3003308, 2663366, 0356729, 5278597 ####[facility] [address] [place], [place] [address]Xshtgtzygx (Bld) [Volume fraction]35.9 %Eckhgt58.0-46.0 [facility] HospitalComment on above:Performed By: #### 06530268, 2831807, 0545268, 8070912, 3600245, 9290451 ####[facility] Credyleyut[address] [place], [place] [address]Dywpaktqah (Bld) [Mass/Vol]11.9 g/dL Low12.0-16.0[facility] City HospitalComment on above:Performed By: #### 57026914, 0853769, 8036533, 3363969, 0463217, 6173313 ####[facility] Bivgmqizez[address] [place], [place] [address]IOA (RBC) [Entitic mass]32.3 cnJwevtn41.0-34.0[facility] City HospitalComment on above:Performed By: #### 34235164, 3081448, 7465445, 8808071, 0159908, 3485046 ####[facility] Zhpercjbnl[address] [place], [place] [address]KJOX (RBC) [Mass/Vol]33.1 g/dL Dlkkxr63.4-36.0[facility] City HospitalComment on above:Performed By: #### 09521219, 6858165, 7681320, 2067587, 4230070, 2768371 ####[address] [address]QOW (RBC) [Entitic vol]97.4 fL Dzrary77.0-100.0L[facility] City HospitalComment on above:Performed By: #### 24338952, 3730369, 4258568, 0063169, 8527254, 4236693 ####[address] [address]Jvijfhkx mean volume (Bld) [Entitic vol]7.4 fLNormal6.4-10.8Lima City HospitalComment on above: Performed By: #### 51802545, 5667962, 2777450, 8332608, 9755156, 5404970 ####[address] [address] Platelets (Bld) [#/Vol]207.0 E9/NLsltrn817.0-500.0[facility] Comment on above:Performed By: #### 14505844, 6420944, 2621799, 3035510, 4507861, 6876049 ####[address] [address]QLY (Bld) [#/Vol]3.7 E12/LLow4.3-5.9[facility] HospitalComment on above:Performed By: #### 44885478, 0244109, 5249669, 2246868, 0372411, 4693238 ####[address] [address]LWS corrected for nucl RBC Auto (Bld) [#/Vol]3.5 E9/LLow 4.0-11.0[facility] City HospitalComment on above:Performed By: #### 84040288, 4797602, 9576906, 8810778, 5610459, 0030660 ####[facility] Fuc[address]in[address] [place], [place] [address]MHBLXIDPZLxcukqg By: SYSTEM SYSTEM on 70-79-7276Enahc gap [Moles/Vol]12 mmol/LNormal6 - 16 mEq/LFTMC RemisolChloride [Moles/Vol]111 mmol/ABzkzgx256 - 111 mmol/LFTMC RemisolCO2 [Moles/Vol]20 mmol/L Low21 - 31 mmol/LFTMC RemisolCreatinine [Mass/Vol]1.2 mg/dLNormal0.5 - 1.3 mg/dL [facility] RemisolGFR/1.73 sq M.predicted among non-blacks MDRD (S/P/Bld) [Vol rate/Area]51 mL/min/1.73 m2Low>=59mL/min/1.73 m2[facility] Chem SGlucose [Mass/Vol]84 mg/iYIfvubb76 - 199 mg/dLNORTHWEST SURGICAL [facility] RemisolPotassium [Moles/Vol]4.2 mmol/LNormal3.5 - 5.3 mmol/LFTMC RemisolSodium [Moles/Vol]139 mmol/UPmvbdo726 - 145 mmol/LFTMC RemisolUrea nitrogen [Mass/Vol]28 mg/dLHigh5 - 21 mg/dLNORTHWEST [facility] [place] RemisolConsent for Treatmenton 96-19-6620Ekzoubi for Treatment [id number]#1.00CD:127NormalLima City HospitalCreatinineon 26-70-1591Xaocntlqcr [Mass/Vol]1.2 mg/dLNormal0.5-1.3[facility] HospitalComment on above:Performed By: #### 70985025, 0247094, 6071753, 5222612, 3152557, 9967830 ####[facility] [address] [place], [place] [address]Qeitjdkwg 15-59-1731Jsrmxjz [Mass/Vol]84 mg/dL Lpuewq74-049BdciofLima City HospitalComment on above:Performed By: #### 44998716, 9525646, 0132720, 9491603, 3477257, 2510160 ####[facility] [address] [place], [place] [address]IGPXRQBYCEIuvqucb By: Deyanira Longoria on 71-43-2731Crouvhregim distribution width (RBC) [Ratio]14.5 %High10.9 - 14.2 %[facility] HemeAutoSSHematocrit (Bld) [Volume fraction]35.9 %Rdgnsn13.0 - 46.0 %[facility] HemeAutoSSHemoglobin (Bld) [Mass/Vol]11.9 g/dLLow12.0 - 16.0 gm/dL [facility] HemeAutoSSMCH (RBC) [Entitic mass]32.3 noHdqlqv46.0 - 34.0 pgFTMC HemeAutoSSMCHC (RBC) [Mass/Vol]33.1 g/zDXxbbak29.4 - 36.0 gm/dLFTMC HemeAutoSS MCV (RBC) [Entitic vol]97.4 cDRdrdsz35.0 - 100.0 fLFTMC HemeAutoSSPlatelet mean volume (Bld) [Entitic vol]7.4 fLNormal6.4 - 10.8 fLFTMC HemeAutoSSPlatelets (Bld) [#/Vol]207.0 E9/UUqglxy829.0 - 500.0 E9/LFTMC HemeAutoSSRBC (Bld) [#/Vol] 3.7 E12/LLow4.3 - 5.9 E12/LFTMC HemeAutoSSWBC corrected for nucl RBC Auto (Bld) [#/Vol]3.5 E9/LLow4.0 - 11.0 E9/LFTMC HemeAutoSSLyteson 33-34-6879Abucn gap [Moles/Vol]12 mmol/LNormal6-16L[facility] City HospitalComment on above: Performed By: #### 60714069, 0624975, 7058889, 9917728, 7244494, 1368188 ####[facility] [address] [place] [address] Chloride [Moles/Vol]111 mmol/GGudbqf479-275Wiriem Zen Medical CenterComment on above:Performed By: #### 30490767, 0993573, 6950822, 7918521, 2289128, 8682668 ####[facility] [address]ar[address] [place], [place] [address]AR6 [Moles/Vol]20 mmol/OIwn08-08HkpjtmLima City HospitalComment on above: Performed By: #### 22070612, 0513268, 3998502, 0493212, 3491499, 9953943 ####[facility] [address]vc[address] [place] [address] Potassium [Moles/Vol]4.2 mmol/LNormal3.5-5.3Fisher [facility] HospitalComment on above:Performed By: #### 08305694, 3943333, 1395858, 7567679, 2859814, 7075821 ####[address] [address]Cieyza [Moles/Vol]139 mmol/GAsjsbk103-292EnmhsfLima City HospitalComment on above:Performed By: #### 57005020, 6667829, 2559495, 4752860, 1322864, 7993438 ####[address] [place], [place] [address]MM With Cult Reflexon 03-43-9520Slhmhspne Ql (U)NegativeNormalNegative [facility] City HospitalComment on above:Performed By: #### 69620691 #### [facility] [address], [place] [address]Zyufzmh (U)CLEARNormalClearLima City HospitalComment on above:Performed By: #### [id number] #### [facility] [address], [place] [address]Ljpyd (U)YELLOWNormalYellowLima City HospitalComment on above:Performed By: #### 56350061 #### [facility] [address], [place] [address]Cdkjauqzwx cells.squamous LM.HPF (Urine sed) [#/Area]0-2Normal 0-2FGlenbeigh HospitalComment on above:Performed By: #### [id number] #### [facility] [address], [place] [address]Ndjm Granular Casts LM Ql (Urine sed)0-3NormalLima City HospitalComment on above:Performed By: #### [id number] #### [facility] [address], [place] [address]Lzdsref Test strip (U) [Mass/Vol]NegativeNormalNegativeLima City HospitalComment on above:Performed By: #### [id number] #### [facility] [address] [place] [address]Vkxmzxapvl Ql (U)NegativeNoalNegDoctors HospitalComment on above:Performed By: #### [id number] #### [facility] [address] [place] [address]Fjixzau (U) [Mass/Vol]NegativeNormalNegDoctors HospitalComment on above:Performed By: #### [id number] #### [facility] [address] [place] [address]Ltlseje.plasma/Alcolu.RBC (Bld) [Mass ratio]2-5Dtdwwe6-3OwvjvjGlenbeigh HospitalComment on above:Performed By: #### [id number] #### [facility] [address] [place] [address]Rvkvp Ql (Urine sed)TRACENoKettering Health Preble Comment on above:Performed By: #### [id number] #### [facility] [address] [place] [address]Ytjvrrr Ql (U)[facility] Comment on above:Performed By: #### [id number] #### [facility] [address] [place] [address]aC (U)6.0 [pH]Invalid Interpretation Code5.0-9.0[facility] City HospitalComment on above:Performed By: #### [id number] #### [facility] [address], [place] [address]Rnsxhea (U) [Mass/Vol]NegativeNormalNegativeLima City HospitalComment on above:Performed By: #### [id number] #### [facility] [address] [place] [address]Nghidvid gravity (U) [Rel density]>=1.030Invalid Interpretation Code1.005-1.030L[facility] City HospitalComment on above:Performed By: #### [id number] #### [facility] [address] [place] [address]Dgyt of Urine collection methodClean CatchNormalLima City HospitalComment on above:Performed By: #### [id number] #### [facility] [address] [place] [address]Qxbybxttapck Qn (U)0.2 {Rajwinder'U}/dLNormal0.0-1.0[facility] HospitalComment on above:Performed By: #### [id number] #### [facility] [address] [place] [address]YWN Auto Ql (U)NegativeNormalNegativeLima City HospitalComment on above:Performed By: #### [id number] #### [facility] [address] [place] [address]DMU LM.HPF (Urine sed) [#/Area]0-4Xwwidf1-2Puwxwv [facility] HospitalComment on above:Performed By: #### [id number] #### [facility] [address] [place] [address]QHQUTYUTFHAfbcfxv By: Indira Case on 62-57-6966Jzpbezaxn Ql (U) Negative (03/24/23 3:05 PM)NormalNegativeNOR[facility] UA Auto SSClarity (U)Clear (03/24/23 3:05 PM)NormalClearFNORTHWEST [facility] UA Auto SSColor (U)Yellow (03/24/23 3:05 PM)NormalYellowNORTHWEST SURGICAL [facility]OSP[facility] [place] UA Auto SSEpithelial cells.squamous LM.HPF (Urine sed) [#/Area]0-2 /HPFNormal0-2/HPFNORTHWEST SUR[facility]ICAL [facility] [place] [place] UA Auto SSFine Granular Casts LM Ql (Urine sed)0-3 (03/24/23 3:05 PM)NormalNORTHWEST SUR[facility]ICAL [facility] [place] [place] UA Auto SSGlucose Test strip (U) [Mass/Vol]Negative (03/24/23 3:05 PM)NormalNegativeNORTHWEST [facility] UA Auto SSHemoglobin Ql (U)Negative (03/24/23 3:05 PM)NormalNegativeNORTHWEST [facility] UA Auto SSKetones (U) [Mass/Vol]Negative (03/24/23 3:05 PM)NormalNegativeNORTHWEST [facility] [place] UA Auto SSLithium.plasma/Alcolu.RBC (Bld) [Mass ratio]0-3 /HPFNormal0-3/HPFNORTHWEST SUR[facility]ICAL [facility] [place] UA Auto SSMucus Ql (Urine sed)Trace (03/24/23 3:05 PM)NormalNORTHWEST SUR[facility]ICAL [facility] UA Auto SSNitrite Ql (U)Negative (03/24/23 3:05 PM)NormalNegativeNORTHWEST [facility] UA Auto SSpH (U)6.0 *NA* (03/24/23 3:05 PM)Invalid Interpretation Code5.0 - 9.0[facility] UA Auto SSProtein (U) [Mass/Vol]Negative (03/24/23 3:05 PM)NormalNegativeNORTHWEST SUR[facility] [place] UA Auto SSSpecific gravity (U) [Rel density] >=1.030 *NA* (03/24/23 3:05 PM)Invalid Interpretation Code1.005 - 1.030[facility] UA Auto SSUA Spec DescClean Catch (03/24/23 3:05 PM)NormalNORTHWEST SURGICAL [facility]OSPITAL [facility] [place] UA Auto SSUrobilinogen Qn (U)0.7032309 {Rajwinder'U}/dLNormal0.0 - 1.0 EU/dLNORTHWEST SURGICAL [facility]OSP[facility] [place] UA Auto SSWBC Auto Ql (U)Negative (03/24/23 3:05 PM)NormalNegativeNORTHWEST [facility] [place] UA Auto SSWBC LM.HPF (Urine sed) [#/Area]0-5 /HPFNormal0-5/HPFNORTHWEST SURGICAL [facility]OSP[facility] [place] UA Auto SSXR Chest 2 Viewson 02-78-4165QF Chest 2 Views Exam Date/Time: 03/24/2023 15:21 [...] Karony in mGy = na DAP = naNorMetroHealth Main Campus Medical CentereGFRon 01-35-8701VCU/1.73 sq M.predicted among non-blacks MDRD (S/P/Bld) [Vol rate/Area]51 mL/min/1.73 m2Low >=[address] [place], [place] [address]Comment on above:Order Comment: Order added by Discern Expert.Result Comment: Chronic kidney disease could be indicated at eGFR's of less than 60 mL/min/1.73m2. Kidney failure is indicated at less than 15 mL/min/1.73m2.Performed By: #### 13476752, 3255694, 2586194, 9001017, 6155910, 8888992 ####[facility] R[address]vbi[address] [place], [place] [address]Eypnicmla Orderon 89-18-5539Awvoyyrzh Order [id number]#1.00CD:127NoKettering Health PrebleXR SHOULDER RT 2V or >on 12-88-8573LF SHOULDER RT 2V or >EXAM: XR SHOULDER [...] Electronically authenticated by: VANDANA YUAN Date: 2022-10-07 22:08NoVeterans Health Administration AUTO DIFFon 30-11-3741OPNV #0.0 103/ulNormal0.0-0.1[facility]ma Medical CenterComment on above:Performed By: #### CBC ####[facility] [address] [address]Dr.Andrade ChangBasophils/100 WBC (Bld)0.5 %Normal0.2-2.0[facility] on above:Performed By: #### CBC ####[facility] Dw[address] [place], [place] [address]Dr.Kellenlan ChangEO #0.1 103/ulNormal0.0-0.7The [facility] HospitalCommunson healthcare [facility] on above:Performed By: #### CBC ####[facility] Sivzmlkwuj[address] [place], [place] [address]Dr.Andrade ChangEosinophils/100 WBC (Bld)2.3 %Normal 0.9-7.0The [facility] HospitalComment on above:Performed By: #### CBC ####[facility] [address] [address]Dr.Andrade Alvarado Erythrocyte distribution width (RBC) [Ratio]13.7 %Fboacn11.0-15.0[facility] on above:Performed By: #### CBC ####[facility] Wwyomjjlpo[address] [place], [place] [address]Dr.Andrade AlvaradoHematocrit (Bld) [Volume fraction]32.8 %Critically low36.0-48.0The [facility] HospitalComment on above:Performed By: #### CBC ####[facility] [address] [place] [address]Dr.Andrade ChangHemoglobin (Bld) [Mass/Vol]10.9 g/dL Critically low12.0-16.0The [facility] HospitalComment on above:Performed By: #### CBC ####[facility] Fbjcxpuvfm[address] [place], [place] [address]Dr. Kellenlan ChangIG #0.02 10e3/ulNormal0.00-0.03The [facility] HospitalComment on above: Performed By: #### CBC ####[facility] Wszktvzipg[address] [place], [place] [address]Dr.Kellengregory ChangIG %0.5 %Normal0.0-0.5The [facility] HospitalComment on above:Performed By: #### CBC ####[facility] Jrpxrewvzs[address] [place], [place] [address]Dr.Andrade ChangLYMPH #1.6 103/ulNormal1.2-3.8The [facility] HospitalComment on above:Performed By: #### CBC ####[facility] Yjvtfmbxac[address] [place], [place] [address]Dr. Kellengregory AlvaradoLymphocytes/100 WBC (Bld)41.8 %Uhlmjq55.5-60.0The [facility] Comment on above:Performed By: #### CBC ####[facility] Scxoytkygi[address] [place], [place] [address]Dr.Kellengregory ChristianoMANUAL DIFF REQNONormalThe [facility] HospitalComment on above:Performed By: #### CBC ####[facility] Vgpvejukws[address] [place], [place] [address]Dr.Andrade AlvaradoH (RBC) [Entitic mass]31.9 qiTasvst50.7-34.0The [facility] HospitalComment on above: Performed By: #### CBC ####[facility] Putqbviasg[address] [place], [place] [address]Dr.Andrade AlvaradoMOUNT SINAI [facility]ALTH SYSTEM (RBC) [Mass/Vol]33.2 g/dLNormal 29.9-35.2The [facility] HospitalComment on above:Performed By: #### CBC ####[facility] [address] [address]Dr. Andrade ChristianoMCV (RBC) [Entitic vol]95.9 oTWyvlqs80.0-99.0The [facility] Comment on above:Performed By: #### CBC ####[facility] Zzraxehocz[address] [place], [place] [address]Dr.Andrade AlvaradoMONO #0.5 103/ulNormal0.3-0.8 The [facility] HospitalComment on above:Performed By: #### CBC ####[facility] Nqtegukewo[address] [place], [place] [address]Dr.Andrade Alvarado Monocytes/100 WBC (Bld)13.1 %Critically high1.7-12.0The [facility] HospitalComment on above:Performed By: #### CBC ####[facility] Stpxcdgtsc[address] [place], [place] [address]Dr.Andrade AlvaradoNEUT #1.6 103/ulNormal1.4-6.5The [facility] HospitalComment on above:Performed By: #### CBC ####[facility] Tvzdzydyfy[address] [place], [place] [address]Dr.Kellengregory AlvaradoNeutrophils/100 WBC (Bld)41.8 %Critically low43.0-75.0The [facility] HospitalComment on above: Performed By: #### CBC ####[facility] Oiputzipap[address] [place], [place] [address]Dr.Kellengregory AlvaradoPlatelet mean volume (Bld) [Entitic vol] 8.8 fLCritically low9.5-13.5The [facility] HospitalComment on above:Performed By: #### CBC ####[facility] [address]qroztkqpv[address] [place], [place] [address]Dr.Andrade PujxyJIG595 103/tjEfmujs590-169Bxg [facility] HospitalComment on above:Performed By: #### CBC ####[facility] Dfppmjimsg[address] [place], [place] [address]Dr.Andrade AlvaradoRBC3.42 106/ulCritically low4.20-5.40The [facility] HospitalComment on above:Performed By: #### CBC ####[facility] [address] [address]Dr.Yilan AlvaradoWBC3.9 103/ul Critically low4.0-11.0The [facility] HospitalComment on above:Performed By: #### CBC ####[facility] [address] [address]Dr. Andrade AlvaradoFERRITINon 35-76-0835Gbzogbnd [Mass/Vol]292.0 ng/mLCritically high 8.0-252.0The [facility] HospitalComment on above:Performed By: #### FERR, B12FOL, FETIBC #### [facility] [address] [address] [address] Andrade Chavez AND TIBCon 09-16-2022% WHHDJIMOTP01.2 %NormalThe [facility] HospitalComment on above:Performed By: #### FERR, B12FOL, FETIBC #### [facility] [address] [address] [address] Andrade Chavez [Mass/Vol]259.0 ug/dLCritically high50.0-170.0The [facility] HospitalComment on above:Performed By: #### FERR, B12FOL, FETIBC #### [facility] [address] [address] [address] Andrade Sanhdu HPYFMX204.0 ug/sJGjmexs780.0-450.0The [facility] Comment on above:Performed By: #### FERR, B12FOL, FETIBC #### [facility] [address] [address] [address] Andrade David 14(COMP METB)on 18-61-9211Irvbrgf [Mass/Vol]4.0 g/dLNormal 3.4-5.0The [facility] HospitalComment on above:Performed By: #### CMP ####[facility] [address]sm[address]avmhk[address] [place], [place] [address]Dr.Yilan Alvarado Albumin/Globulin [Mass ratio]1.3 {ratio}NormalThe [facility] HospitalComment on above:Performed By: #### CMP ####[facility] Xdivurmhcg[address] [place], [place] [address]Dr.Andrade AlvaradoALP [Catalytic activity/Vol]47 U/LNormal 46-116The [facility] HospitalComment on above:Performed By: #### CMP ####[facility] Qumraoolvk[address] [place], [place] [address]Dr.Andrade ChangALT [Catalytic activity/Vol]23 U/TExeawq23-07Pnj [facility] HospitalComment on above: Performed By: #### CMP ####[facility] Usghqhycej[address] [place], [place] [address]Dr.Andrade AlvaradoAnion gap [Moles/Vol]12.1 mmol/LNormal The [facility] HospitalComment on above:Performed By: #### CMP ####[facility] Afuwdgbrjf[address] [place], [place] [address]Dr.Andrade ChangAST [Catalytic activity/Vol]23 U/XJgtycd50-41Zik [facility] HospitalComment on above: Performed By: #### CMP ####[facility] Tvlzdatsjo[address] [place], [place] [address]Dr.Andrade AlvaradoBilirubin [Mass/Vol]0.4 mg/dLNormal 0.2-1.0The [facility] HospitalComment on above:Performed By: #### CMP ####[facility] [address]cufeklfdi[address] [place], [place] [address]Dr.Andrade Alvarado Calcium [Mass/Vol]9.3 mg/dLNormal8.5-10.1The [facility] HospitalComment on above: Performed By: #### CMP ####[facility] [address]zexgpkpum[address] [place], [place] [address]Dr.Andrade ChangChloride [Moles/Vol]108 mmol/LCritically yirn76-618Shk [facility] HospitalComment on above:Performed By: #### CMP ####[facility] [address]xsbcidgvw[address] [place], [place] [address]Dr. Yigregory ChangCO2 [Moles/Vol]26.9 mmol/DYfsioh62.0-32.0The [facility] HospitalComment on above:Performed By: #### CMP ####[facility] Htxzivrkvp[address] [place], [place] [address]Dr.Yilan ChangCreatinine [Mass/Vol]0.87 mg/dLNormal 0.55-1.02The [facility] HospitalComment on above:Performed By: #### CMP ####[facility] Fnherzrkav[address] [place], [place] [address]Dr. Yilan ChangEGFR-AF INDONESIAN>60Normal>=60The [facility] HospitalComment on above: Performed By: #### CMP ####[facility] Bxmkwiycue[address] [place], [place] [address]Dr.Yilan ChangEGFR-NON AF INDONESIAN>60Normal>=60The [facility] HospitalComment on above:Performed By: #### CMP ####[facility] Lflousjcyw[address] [place], [place] [address]Dr.Yilan ChangGlobulin (S) [Mass/Vol]3.0 g/dLNormalThe [facility] HospitalComment on above:Performed By: #### CMP ####[facility] Akmrdusyjo[address] [place], [place] [address]Dr.Yilan ChangGlucose [Mass/Vol]102 mg/xWHmozcv78-117Qjo [facility] Comment on above:Performed By: #### CMP ####[facility] C[address]qjrfzpv[address] [place], [place] [address]Dr.Yilan ChangPotassium [Moles/Vol]4.0 mmol/LNormal3.5-5.1The [facility] HospitalComment on above:Performed By: #### CMP ####[facility] [address] [place], [place] [address]Dr. Yilan ChangProtein [Mass/Vol]7.0 g/dLNormal6.4-8.2The [facility] HospitalComment on above:Performed By: #### CMP ####[facility] Galdpsnwh[address] [place], [place] [address]Dr.Yilan ChangSodium [Moles/Vol]143 mmol/LNormal 136-145The [facility] HospitalComment on above:Performed By: #### CMP ####[facility] [address] [address]Dr.Kellengregory ChangUrea nitrogen [Mass/Vol]25.0 mg/dLCritically high7.0-18.0The [facility] HospitalComment on above:Performed By: #### CMP ####[facility] [address] [place] [address]Dr.Kellengregory ChangUrea nitrogen/Creatinine [Mass ratio] 28.7 mg/mgNormalThe [facility] HospitalComment on above:Performed By: #### CMP ####[facility] [address] [place] [address]Dr. Andrade AlvaradoSED RATE WESTERGRENon [id number] RATE11 mm/hrNormal<=30The [facility] HospitalComment on above:Performed By: #### SEDR ####[facility] [address]ulk[address] [place], [place] [address]Dr. Andrade AlvaradoVIT B12 AND FOLATEon [id number] (Vitamin B12) [Mass/Vol]249.0 pg/mLNormal 193.0-986.0The [facility] HospitalComment on above:Performed By: #### FERR, B12FOL, FETIBC #### [facility] [address] [address] [address] Andrade AlvaradoFOLATE14.00 ng/mLNormal8.60-58.90The [facility] HospitalComment on above:Performed By: #### FERR, B12FOL, FETIBC #### [facility] [address] [address] [address] Andrade AlvaradoMG MAMM SCREEN 3D BRENNA CADon 68-98-0530DQ MAMM SCREEN 3D BRENNA CAD Patient: RADHA ZAIDI Exam Date: 2022 : 1960 Gender:F Ordering : DR JOHN ASHBY D.O. Admission #: [id number] Family : Order #: [id number] CLICK HERE TO VIEW EXAM RADIOLOGY REPORT [...] prostate cancer at age 72. LOCATION: [facility] BREAST COMPOSITION: Scattered areas fibroglandular [...] by: Julian Teixeira M.D. on 06/09/2022 at 15:30NoVeterans Health Administration AUTO DIFFon [id number] #0.0 103/ulNormal0.0-0.1[facility]ma Medical CenterComment on above:Performed By: #### CBC ####[facility] [address]fdyt[address] [place], [place] [address]Dr.Andrade ChangBasophils/100 WBC (Bld)1.0 %Normal0.2-2.0[facility]ma Medical CenterComment on above:Performed By: #### CBC ####[facility] [address]vfr[address] [place], [place] [address]Dr.Kellenlan ChangEO #0.1 103/ulNormal0.0-0.7ThAultman Alliance Community HospitalComment on above:Performed By: #### CBC ####[facility] Pgrwhikthm[address] [place], [place] [address]Dr.Andrade ChangEosinophils/100 WBC (Bld)2.5 %Normal 0.9-7.0The [facility] HospitalComment on above:Performed By: #### CBC ####[facility] Cjaumgsuhf[address] [place], [place] [address]Dr.Yilan Alvarado Erythrocyte distribution width (RBC) [Ratio]13.0 %Yqfpgy82.0-15.0The [facility] HospitalComment on above:Performed By: #### CBC ####[facility] [address] [address]Dr.Andrade AlvaradoHematocrit (Bld) [Volume fraction]34.9 %Critically low36.0-48.0The [facility] HospitalComment on above:Performed By: #### CBC ####[facility] [address]iend[address] [place], [place] [address]Dr.Andrade AlvaradoHemoglobin (Bld) [Mass/Vol]11.6 g/dL Critically low12.0-16.0The [facility] HospitalComment on above:Performed By: #### CBC ####[facility] Hinokcy[address] [place], [place] [address]Dr. Andrade ChangIG #0.02 10e3/ulNormal0.00-0.03The [facility] HospitalComment on above: Performed By: #### CBC ####[facility] Nzmqzeqqsc[address] [place], [place] [address]Dr.Andrade ChangIG %0.5 %Normal0.0-0.5The [facility] HospitalComment on above:Performed By: #### CBC ####[facility] Ffztmlrvdm[address] [place], [place] [address]Dr.Andrade AlvaradoLYMPH #1.9 103/ulNormal1.2-3.8The [facility] HospitalComment on above:Performed By: #### CBC ####[facility] Mpkgbltbcx[address] [place], [place] [address]Dr. Andrade AlvaradoLymphocytes/100 WBC (Bld)46.1 %Yvobhq68.5-60.0[facility] Comment on above:Performed By: #### CBC ####[facility] Vvkxyhwxxk[address] [place], [place] [address]Dr.Andrade AlvaradoMANUAL DIFF REQNONormalThe [facility] HospitalComment on above:Performed By: #### CBC ####[facility] Psblisxood[address] [place], [place] [address]Dr.Andrade ChristianoH (RBC) [Entitic mass]32.3 xrAxzdgl21.7-34.0The [facility] HospitalComment on above: Performed By: #### CBC ####[facility] [address] [address]Dr.Andrade AlvaradoHC (RBC) [Mass/Vol]33.2 g/dLNormal 29.9-35.2The [facility] HospitalComment on above:Performed By: #### CBC ####[facility] Gnnewozmxk[address] [place], [place] [address]Dr. Kellengregory AlvaradoV (RBC) [Entitic vol]97.2 rNXpiryi53.0-99.0[facility] Comment on above:Performed By: #### CBC ####[facility] Sydywsizrx[address] [place], [place] [address]Dr.Andrade AlvaradoMONO #0.5 103/ulNormal0.3-0.8 The [facility] HospitalComment on above:Performed By: #### CBC ####[facility] Mvgizrdtvd[address] [place], [place] [address]Dr.Andrade Alvarado Monocytes/100 WBC (Bld)13.5 %Critically high1.7-12.0The [facility] HospitalComment on above:Performed By: #### CBC ####[facility] Nbezxbddhw[address] [place], [place] [address]Dr.Andrade AlvaradoNEUT #1.5 103/ulNormal1.4-6.5The [facility] HospitalComment on above:Performed By: #### CBC ####[facility] Kazjlecudh[address] [place], [place] [address]Dr.Andrade AlvaradoNeutrophils/100 WBC (Bld)36.4 %Critically low43.0-75.0The [facility] HospitalComment on above: Performed By: #### CBC ####[facility] Brjsgxkaob64[address] [place], [place] [address]Dr.Andrade AlvaradoPlatelet mean volume (Bld) [Entitic vol] 8.9 fLCritically low9.5-13.5The [facility] HospitalComment on above:Performed By: #### CBC ####[facility] [address] [address]Dr.Andrade AlvaradoPLT237 103/tiDoyyxg414-637Bar [facility] HospitalComment on above:Performed By: #### CBC ####[facility] [address] [address]Dr.Andrade AlvaradoRBC3.59 106/ulCritically low4.20-5.40The [facility] HospitalComment on above:Performed By: #### CBC ####[facility] [address] [address]Dr.Andrade AlvaradoWBC4.0 103/ul Normal4.0-11.0The [facility] HospitalComment on above:Performed By: #### CBC ####[facility] [address] [address]DrMehreen PedroPon 15-96-5360AYB [Mass/Vol]mg/LNormal<=1.0[facility] Comment on above:Performed By: #### CMP, CRP, TSH ####[facility] Cwgxdemjgj[address] [place], [place] [address]DrMehreen AlvaradoPROF 14(COMP METB)on 33-28-8783Diovegk [Mass/Vol]4.2 g/dLNormal3.4-5.0The [facility] Comment on above:Performed By: #### CMP, CRP, TSH #### [facility] [address] [place] [address] Dr. Andrade AlvaradoAlbumin/Globulin [Mass ratio]1.3 {ratio}NormalThe [facility] Memorial HospitalComment on above:Performed By: #### CMP, CRP, TSH #### [facility] [address] [place] [address] Dr. Andrade Bermudez [Catalytic activity/Vol]50 U/MQgkhuo20-354Qid [facility] HospitalComment on above:Performed By: #### CMP, CRP, TSH #### [facility] [address] [place] [address] Dr. Yilan ChangALT [Catalytic activity/Vol]23 U/SSquzct01-36Fgs [facility] HospitalComment on above:Performed By: #### CMP, CRP, TSH #### [facility] [address] [place] [address] Dr. Andrade AlvaradoAnion gap [Moles/Vol]11.3 mmol/LNormalMetrohealth Parma Medical Center Comment on above:Performed By: #### CMP, CRP, TSH #### [facility] [address] [place] [address] Dr. Andrade AlvaradoAST [Catalytic activity/Vol]23 U/HTcvvbi21-37Tgo [facility] HospitalComment on above:Performed By: #### CMP, CRP, TSH #### [facility] [address] [place] [address] Dr. Andrade AlvaradoBilirubin [Mass/Vol]0.5 mg/dLNormal0.2-1.0[facility] Comment on above:Performed By: #### CMP, CRP, TSH #### [facility] [address] [place] [address] Dr. Andrade AlvaradoCalcium [Mass/Vol]9.3 mg/dLNormal8.5-10.1[facility] Comment on above:Performed By: #### CMP, CRP, TSH #### [facility] [address] [place] [address] Dr. Andrade AlvaradoChloride [Moles/Vol]104 mmol/AXcrnzn33-448HywMetrohealth Parma Medical Center Comment on above:Performed By: #### CMP, CRP, TSH #### [facility] [address] [place] [address] Dr. Andrade AlvaradoCO2 [Moles/Vol]27.2 mmol/FHatusz17.0-32.0[facility] Comment on above:Performed By: #### CMP, CRP, TSH #### [facility] [address] [place] [address] Dr. Andrade AlvaradoCreatinine [Mass/Vol]0.99 mg/dLNormal0.55-1.02The [facility] HospitalComment on above:Performed By: #### CMP, CRP, TSH #### [facility] [address] [address] [address] Andrade MartinezGFR-AF INDONESIAN>60Normal>=60The [facility] HospitalComment on above:Performed By: #### CMP, CRP, TSH #### [facility] [address] [address] [address] Andrade MartinezGFR-NON AF QHTQLIRJ19 mL/min/1.89s5Nopovqwpap low>=60The [facility] HospitalComment on above:Performed By: #### CMP, CRP, TSH #### [facility] [address] [address] [address] Andrade AlvaradoGlobulin (S) [Mass/Vol]3.3 g/dLNormalThe [facility] HospitalComment on above:Performed By: #### CMP, CRP, TSH #### [facility] [address] [address] [address] Andrade AlvaradoGlucose [Mass/Vol]97 mg/kXDewobo27-940EzrMetrohealth Parma Medical Center Comment on above:Performed By: #### CMP, CRP, TSH #### [facility] [address] [address] [address] Andrade AlvaradoPotassium [Moles/Vol]3.5 mmol/LNormal3.5-5.1[facility] Comment on above:Performed By: #### CMP, CRP, TSH #### [facility] [address] [address] [address] Andrade AlvaradoProtein [Mass/Vol]7.5 g/dLNormal6.4-8.2[facility] Comment on above:Performed By: #### CMP, CRP, TSH #### [facility] [address] [address] [address] Andrade AlvaradoSodium [Moles/Vol]139 mmol/RShbksr289-617Kua [facility] Comment on above:Performed By: #### CMP, CRP, TSH #### [facility] [address] [address] [address] Andrade AlvaradoUrea nitrogen [Mass/Vol]22.0 mg/dLCritically high7.0-18.0[facility] on above:Performed By: #### CMP, CRP, TSH #### [facility] [address] [address] [address] Andrade AlvaradoUrea nitrogen/Creatinine [Mass ratio]22.2 mg/mgNormalThe [facility] HospitalCommunson healthcare [facility] on above:Performed By: #### CMP, CRP, TSH #### [facility] [address] [address] [address] Andrade Ellsworth RATE WESTERGRENon 22-88-2678QRP RATE22 mm/hrNormal<=30[facility] on above:Performed By: #### SEDR ####[facility] [address]abmsvvsc[address] [place], [place] [address]DrMehreen AlvaradoTSHon 74-15-7216RMV2.373 uIU/mLNormal0.358-3.740The [facility] on above: Performed By: #### CMP, CRP, TSH #### [facility] [address] [address] [address] Andrade Vieira AUTO DIFFon 46-67-2543SHXO #0.0 103/ulNormal0.0-0.1[facility] on above:Performed By: #### CBC ####[facility] [address]ijbrnet[address] [place], [place] [address]Dr.Andrade ChangBasophils/100 WBC (Bld)0.9 %Normal0.2-2.0[facility] on above:Performed By: #### CBC ####[facility] [address]cmwmais[address] [place], [place] [address]Dr.Kellenlan ChangEO #0.1 103/ulNormal0.0-0.7[facility] on above:Performed By: #### CBC ####[facility] Xevmtogtie[address] [place], [place] [address]Dr.Andrade ChangEosinophils/100 WBC (Bld)2.3 %Normal 0.9-7.0[facility] on above:Performed By: #### CBC ####[facility] [address] [address]Dr.Andrade Alvarado Erythrocyte distribution width (RBC) [Ratio]12.6 %Lcqjts51.0-15.0The [facility] HospitalComment on above:Performed By: #### CBC ####[facility] [address]idifdbzf[address] [place], [place] [address]Dr.Andrade AlvaradoHematocrit (Bld) [Volume fraction]37.8 %Gepnxd28.0-48.0The [facility] HospitalComment on above:Performed By: #### CBC ####[facility] [address]efpzxfpdf[address] [place], [place] [address]Dr.Andrade AlvaradoHemoglobin (Bld) [Mass/Vol]12.3 g/dL Oiybgz04.0-16.0The [facility] HospitalComment on above:Performed By: #### CBC ####[facility] [address]irquvsp[address] [place], [place] [address]Dr. Kellengregory AlvaradoIG #0.02 10e3/ulNormal0.00-0.03The [facility] HospitalComment on above: Performed By: #### CBC ####[facility] [address]ypzzvybe[address] [place], [place] [address]Dr.Kellengregory AlvaradoIG %0.5 %Normal0.0-0.5The [facility] HospitalComment on above:Performed By: #### CBC ####[facility] Dbvsoklrkj[address] [place], [place] [address]Dr.Andrade ChristianoLYMPH #2.1 103/ulNormal1.2-3.8The [facility] HospitalComment on above:Performed By: #### CBC ####[facility] Gcipxjxxva[address] [place], [place] [address]Dr. Andrade ChristianoLymphocytes/100 WBC (Bld)48.3 %Nmepia16.5-60.0[facility] Comment on above:Performed By: #### CBC ####[facility] [address]ghzwnh[address] [place], [place] [address]Dr.Andrade AlvaradoMANUAL DIFF REQNONormalThe [facility] HospitalComment on above:Performed By: #### CBC ####[facility] [address] [address]Dr.Andrade ChristianoH (RBC) [Entitic mass]31.9 ynTseeuy01.7-34.0The [facility] HospitalComment on above: Performed By: #### CBC ####[facility] [address] [address]Dr.Andrade AlvaradoHC (RBC) [Mass/Vol]32.5 g/dLNormal 29.9-35.2The [facility] HospitalComment on above:Performed By: #### CBC ####[facility] [address] [address]Dr. Andrade AlvaradoV (RBC) [Entitic vol]97.9 jBPbicsj31.0-99.0[facility] Comment on above:Performed By: #### CBC ####[facility] [address]pdjysfpfw[address] [place], [place] [address]Dr.Andrade AlvaradoMONO #0.5 103/ulNormal0.3-0.8 The [facility] HospitalComment on above:Performed By: #### CBC ####[facility] Tsqmwtupqf[address] [place], [place] [address]Dr.Kellengregory Alvarado Monocytes/100 WBC (Bld)11.2 %Normal1.7-12.0The [facility] HospitalComment on above:Performed By: #### CBC ####[facility] Crtjvezdix[address] [place], [place] [address]Dr.Andrade AlvaradoNEUT #1.6 103/ulNormal1.4-6.5The [facility] HospitalComment on above:Performed By: #### CBC ####[facility] Gwmmxbanpw0[address] [place], [place] [address]Dr.Andrade AlvaradoNeutrophils/100 WBC (Bld)36.8 %Critically low43.0-75.0The [facility] HospitalComment on above: Performed By: #### CBC ####[facility] Yczpmrdmke[address] [place], [place] [address]Dr.Kellengregory AlvaradoPlatelet mean volume (Bld) [Entitic vol] 9.9 fLNormal9.5-13.5The [facility] HospitalComment on above:Performed By: #### CBC ####[facility] [address] [address]DrMehreen AlvaradoPLT213 103/ffLcmxoj083-443Ptn [facility] HospitalComment on above: Performed By: #### CBC ####[facility] [address] [address]Dr.Andrade AlvaradoRBC3.86 106/ulCritically low4.20-5.40The [facility] HospitalComment on above:Performed By: #### CBC ####[facility] A[address]ulrhywb[address] [place], [place] [address]DrNito AlvaradoWBC4.4 103/ul Normal4.0-11.0The [facility] HospitalComment on above:Performed By: #### CBC ####[facility] [address]yipvms[address] [place], [place] [address]DrMehreen AlvaradoPROF 14(COMP METB)on 83-06-0628Dgvqhak [Mass/Vol]4.2 g/dLNormal 3.4-5.0The [facility] HospitalComment on above:Performed By: #### CMP #### [facility] [address] [place] [address] Dr. Andrade AlvaradoAlbumin/Globulin [Mass ratio]1.3 {ratio}NormalThe [facility] HospitalCommunson healthcare [facility] hospital on above:Performed By: #### CMP #### [facility] [address] [place] [address] Dr. Andrade Bermudez [Catalytic activity/Vol]61 U/VAsakqq96-027Xil [facility] HospitalComment on above:Performed By: #### CMP #### [facility] [address] [place] [address] Dr. Andrade Lujan [Catalytic activity/Vol]23 U/HMvgdww61-31Tnc [facility] HospitalComment on above:Performed By: #### CMP #### [facility] [address] [place] [address] Dr. Andrade Nunez gap [Moles/Vol]15.5 mmol/LNormalMetrohealth Par[facility] Center Comment on above:Performed By: #### CMP #### [facility] [address] [address] [address] Andrade AlvaradoAST [Catalytic activity/Vol]20 U/UWkeubh84-84Ohq [facility] HospitalComment on above:Performed By: #### CMP #### [facility] [address] [address] [address] Andrade AlvaradoBilirubin [Mass/Vol]0.5 mg/dLNormal0.2-1.0[facility] Comment on above:Performed By: #### CMP #### [facility] [address] [address] [address] Andrade AlvaradoCalcium [Mass/Vol]9.1 mg/dLNormal8.5-10.1[facility] Comment on above:Performed By: #### CMP #### [facility] [address] [address] [address] Andrade AlvaradoChloride [Moles/Vol]106 mmol/AXevjrj31-509Env [facility] Comment on above:Performed By: #### CMP #### [facility] [address] [place] [address] Dr. Andrade AlvaradoCO2 [Moles/Vol]25.6 mmol/PMqkhhx01.0-32.0[facility] Comment on above:Performed By: #### CMP #### [facility] [address] [address] [address] Andrade AlvaradoCreatinine [Mass/Vol]0.97 mg/dLNormal0.55-1.02The [facility] HospitalComment on above:Performed By: #### CMP #### [facility] [address] [address] [address] Zafar ChangEGFR-AF INDONESIAN>60Normal>=60The [facility] HospitalComment on above:Performed By: #### CMP #### [facility] [address] [address] [address] Andrade MartinezGFR-NON AF XVKYTJHK44 mL/min/1.61k8Tqtwwfmrpn low>=60The [facility] HospitalComment on above:Performed By: #### CMP #### [facility] [address] [address] [address] Andrade AlvaradoGlobulin (S) [Mass/Vol]3.2 g/dLNormOhioHealth O'Bleness HospitalComment on above:Performed By: #### CMP #### [facility] [address] [address] [address] Andrade AlvaradoGlucose [Mass/Vol]91 mg/vJAlqdlo65-686Hoj [facility] Comment on above:Performed By: #### CMP #### [facility] [address] [address] [address] Andrade AlvaradoPotassium [Moles/Vol]4.1 mmol/LNormal3.5-5.1The [facility] Comment on above:Performed By: #### CMP #### [facility] [address] [address] [address] Andrade AlvaradoProtein [Mass/Vol]7.4 g/dLNormal6.4-8.2[facility] Comment on above:Performed By: #### CMP #### [facility] [address] [address] [address] Andrade AlvaradoSodium [Moles/Vol]143 mmol/ONzahil992-969OpxMetrohealth Parma Medical Center Comment on above:Performed By: #### CMP #### [facility] [address] [address] [address] Andrade AlvaradoUrea nitrogen [Mass/Vol]18.0 mg/dLNormal7.0-18.0The [facility] HospitalComment on above:Performed By: #### CMP #### [facility] [address] [address] [address] Andrade AlvaradoUrea nitrogen/Creatinine [Mass ratio]18.6 mg/mgNormOhioHealth O'Bleness HospitalComment on above:Performed By: #### CMP #### [facility] [address] [address] [address] Andrade Ellsworth RATE WESTERGRENon 75-46-9667OUX RATE15 mm/hrNormal<=30The [facility] HospitalComment on above:Performed By: #### SEDR #### [facility] [address] [address] [address] Andrade Montoya LEFT 3 VWSon 81-36-2801INXF LEFT 3 [facility]ENTERniProMedica [facility] Department of Radiology [address] [place] [address] Patient Name: RADHA ZAIDI : [...] visible. Electronically signed: Eliezer Cam. Transcribed by: [email or web address], User Resident: Electronically Signed by: ELIEZER CAM @ 04/25/2020 11:44 [facility] HospitalComment on above:Order Comment: EvaluateTIBIA FIBULA LEFTon 18-16-3301IWRLZ FIBULA [facility] Department of Radiology [address] [place] [id number] Patient Name: RADHA ZAIDI : 1960 Sex: F Age: Race: White Pt. Location: Patient Status: Ordered Date: 03/27/2020 8:05:00 AM Completed Date: 03/27/2020 08:35 AM Requesting Provider: HCARLI LUKE Attending Provider: Report Copy To: Signs & Symptoms: S82.832A Oth fracture of upper and lower end of left fibula, init I10 History: [place] Comments: , , , Ordering Provider - [...] healing Electronically signed: Crissy Dubon. Transcribed by: [email or web address], User Resident: Electronically Signed by: CRISSY DUBON @ 03/27/2020 09:11 AMNormalThe [facility] CompanyComment on above:Order Comment: EvaluateOperative Report on 77-89-4585Mpvtthbdb ReportMR#: [id number] S [facility] Pt. Name: Radha Zaidi Room #: 0C [...] were bluntly retracted. We then used a Yutan as well as a hemostat to debride [...] Paniagua MD Date Trans: 03/13/2020 02:26 A/bryson DN_JN:[id number] cc: John Ashby D.O. [address] [place] [phone] Parma Medical CenterKN LEFT 1 OR 2 VWSon 37-39-1663PTDQ LEFT 1 OR 2 SUniProMedica Defiance Regional Hospital Department of Radiology [address] [place] [id number] Patient Name: RADHA ZAIDI : 1960 [...] fracture. Electronically signed: Rahul James. Transcribed by: [email or web address], User Resident: Electronically Signed by: RAHUL JAMES @ 03/12/2020 03:20 PMNormalThe [facility] CompanyComment on above:Order Comment: EvaluatePOC GLUCOSE LAB on 83-55-7480Gehnahr [Mass/Vol]103 mg/iVPnaz05-920GcpACMC Healthcare System GlenbeighComment on above:Performed By: #### [id number] ####[facility]*MRSA/MSSA DNA NASALon 03-08-2020*MRSA/MSSA DNA NASALClinical Report: (D) Specimen: NASAL SWAB Collected: 03/08/2020 14:02 Status: Final Last Updated: 03/09/2020 09:30 MSSA DNA (Final) Negative MRSA DNA (Final) NegativeNormalThe [facility] Hospital CompanyComment on above:Performed By: #### [id number] ####[facility]*SARS-CoV-2 COVID-19on 88-27-5012XYUG-COVID-19Not DetectedNormal Not DetectedThe [facility] Hospital CompanyComment on above:Order Comment: The Aptima SARS-CoV-2 assay is a nucleic acid amplification test intended for the qualitative detection of RNA from SARS-CoV-2 isolated and purified from nasopharyngeal (VASCULAR SURGEON),oropharyngeal (OP), nasal swab, sputum, and bronchoalveolar lavage (BAL) specimens from patients with signs and symptoms of infection who are suspected of COVID-19. Results are for the identification of SARS-CoV-2 RNA. The SARS-CoV-2 RNA is generally detectable during the acute phase of infection. The Aptima SARS-CoV-2 Assay on the Panora and Panora Fusion system is intended for use by laboratory personnel specifically instructed and trained in the operation of the Panora and Panora Fusion system. The Aptima SARS-CoV-2 assay is [...] patient history, and epidemiological information.Performed By: #### [id number] #### [facility] [address] [place] [address], [facility] MEDICAL CENTERAPTTon 94-00-3192sFMG Coag (Bld) [Time]26.9 sNormal 25.0-35.0The [facility] CompanyComment on above:Result Comment: ALL RESULTS MUST BE [...] BE USED FOR THIS PURPOSE.Performed By: #### 66510, 12084 ####[facility] [place] [address], [facility] BASIC METABOLIC PANELon 04-34-3839Yfpcdlr [Mass/Vol]9.7 mg/dLNormal8.6-10.3The [facility] CompanyComment on above:Performed By: #### [id number] #### [facility] [address] [place] [address], [facility] MEDICAL CENTERChloride [Moles/Vol]103 mmol/VGqrtmq02-604Cxv [facility] CompanyComment on above:Performed By: #### [id number] #### [facility] [address] [place] [address], USACO2 [Moles/Vol]31 mmol/ISidwdp16-33Iwg [facility] CompanyComment on above:Performed By: #### [id number] #### [facility] [address] [place] [address], USACreatinine [Mass/Vol]0.87 mg/dLNormal0.60-1.20[facility] CompanyComment on above:Performed By: #### 51844 #### [facility] [address] [place] [address], USAGFR/1.73 sq M predicted among blacks MDRD (S/P/Bld) [Vol rate/Area]mL/min/{1.73_m2}Normal>60[facility] Comment on above:Performed By: #### 36479 #### [facility] [address] [place] [address], USAGFR/1.73 sq M predicted among non-blacks MDRD (S/P/Bld) [Vol rate/Area]mL/min/{1.73_m2}Normal>60[facility] Comment on above:Performed By: #### 23211 #### [facility] [address] [place] [address], USAGlucose [Mass/Vol]106 mg/hXNknt46-198Rsw [facility] CompanyComment on above:Performed By: #### 70613 #### [facility] [address] [place] [address], USAPotassium [Moles/Vol]4.3 mmol/LNormal3.5-5.1[facility] CompanyComment on above:Performed By: #### 97587 #### [facility] [address] [place] [address], USASodium [Moles/Vol]141 mmol/FWouzne848-897Vwu [facility] CenterComment on above:Performed By: #### 33754 #### [facility] [address] [place] [address], USAUrea nitrogen [Mass/Vol]14 mg/dLNormal7-25The [facility] CompanyComment on above:Performed By: #### 48781 #### [facility] [address] [place] [address], USACBC W/DIFFon 28-93-4041HPL BASOPHILS0.1 10*3/uLNormal 0.0-0.2[facility] CompanyComment on above:Performed By: #### 85282 ####[facility] [place] [address], USAABS IMM GRANS0.0 10*3/uLNormal0.0-0.2[facility] CompanyComment on above:Performed By: #### 82820 ####[facility] [facility] [place] [address], [facility] CENTERABS NEUTROPHILS3.4 10*3/uLNormal 1.6-7.6[facility] CompanyComment on above:Performed By: #### 01229 ####[facility] [facility] [place] [address], [facility] CENTERBasophils/100 WBC (Bld)0.8 %Normal0.0-1.0[facility] CompanyComment on above:Performed By: #### 31294 ####[facility] [facility] [place] [address], [facility] MEDICAL CENTEREosinophils (Bld) [#/Vol] 0.7 10*3/uLHigh0.0-0.5[facility] CompanyComment on above: Performed By: #### 57097 ####[facility] [place] [address], [facility] CENTEREosinophils/100 WBC (Bld)9.5 %High0.0-6.0[facility] CompanyComment on above:Performed By: #### 98283 ####[facility] [place] [address], [facility] Erythrocyte distribution width (RBC) [Ratio]13.6 %Ealuxo50.5-15.0[facility] CompanyComment on above:Performed By: #### 25710 ####[facility] [place] [address], USAHematocrit (Bld) [Volume fraction]42.5 %Lglwjx07.0-45.0[facility] CompanyComment on above:Performed By: #### 18286 ####[facility] [place] [address], USAHemoglobin (Bld) [Mass/Vol]13.7 g/tUEqanpd17.0-15.0The [facility] CompanyComment on above: Performed By: #### 82420 ####[facility] [place] [address], USAIMMATURE GRANS0.3 %Normal0.0-1.0[facility] CompanyComment on above:Performed By: #### 03862 ####[facility] [facility] [place] [address], USALymphocytes (Bld) [#/Vol]2.7 10*3/uLNormal1.2-4.0[facility] CompanyComment on above:Performed By: #### 00165 ####[facility] [facility] [place] [address], USALymphocytes/100 WBC (Bld)35.1 %Normal 20.0-45.0[facility] CompanyComment on above:Performed By: #### 65128 ####[facility] [place] [address], USAMCH (RBC) [Entitic mass]31.2 joEzkcmk17.0-33.0The [facility] CompanyComment on above:Performed By: #### 75667 ####[facility] [place] [address].[place] [address], [facility] MEDICAL CENTERMCHC (RBC) [Mass/Vol]32.2 g/mUPbklhz86.0-35.0The [facility] CompanyComment on above: Performed By: #### 88109 ####[facility] [place] [address], [facility] CENTERMCV (RBC) [Entitic vol]96.8 pKCeljgd88.0-98.0The [facility] CompanyComment on above:Performed By: #### 34768 ####[address] [place] [address], [facility] Monocytes (Bld) [#/Vol]0.8 10*3/uLNormal0.1-1.0[facility] CompanyComment on above:Performed By: #### 94714 ####[place] [address], [facility] MED[facility] CENTERMONOS9.8 %Normal5.0-12.0[facility] CompanyComment on above:Performed By: #### 22148 ####[address] [place] [address], [facility] Neutrophils/100 WBC (Bld)44.5 %Qihgae67.0-72.0[facility] CompanyComment on above:Performed By: #### 43569 ####[address] [place] [address], [facility] MEDICAL CENTERNucleated RBC/100 WBC (Bld) [Ratio]0 %Normal0-0[facility] CompanyComment on above: Performed By: #### 15743 ####[address] [place] [address], [facility] MED[facility] CENTERPLAT BGD582 10*3/vSHygfna211-634Ygl [facility] CompanyComment on above:Performed By: #### 99116 ####[facility] [facility] [place] [address], [facility] MEDICAL CENTERRBC (Bld) [#/Vol] 4.39 10*6/uLNormal3.80-5.00[facility] CompanyComment on above:Performed By: #### 70071 ####[facility] [facility] [place] [address], [facility] MEDICAL CENTERWBC (Bld) [#/Vol]7.72 10*3/uLNormal4.00-10.60 [facility] CompanyComment on above:Performed By: #### 39675 ####[facility] [facility] [place] [address], [facility] PROTHROMBIN TIMEon 89-67-8242XUC Coag (PPP) [Relative time]0.99 {INR}Normal 0.91-1.16The [facility] CompanyComment on above:Result Comment: ACCCP RECOMMENDED INR FOR [...] OPTIMAL THERAPEUTIC RANGE. CHEST 1995;108:231S-246S.Performed By: #### 63802, 13122 #### [facility] [address] [place] [address], USAPT Coag (PPP) [Time]13.1 cDbijha58.3-14.8The [facility] CompanyComment on above:Result Comment: ALL RESULTS MUST BE INTERPRETED WITH RESPECT TO BLOOD DRAWING ARTIFACT OR DILUTION ERROR OF ANTICOAGULANT AT THE TIME OF SAMPLING.Performed By: #### 88529, 84586 #### [facility] [address] [place] [address], USAALBUMIN BLOODon 70-59-8333Elcuoin [Mass/Vol]4.5 g/dLNormal 3.5-5.7The [facility] CompanyComment on above:Performed By: #### 02473, 58692, 13178, 23294, 34715 #### [facility] [address] [place] [address], USABASIC METABOLIC PANELon 62-39-2316Puvvrhx [Mass/Vol]9.5 mg/dLNormal8.6-10.3[facility] CompanyComment on above: Performed By: #### 12905, 50442, 73643, 54908, 47189 #### [facility] [address] [place] [address], USAChloride [Moles/Vol]105 mmol/LYwwyfv78-940Ttd [facility] CompanyComment on above:Performed By: #### 97138, 52881, 97921, 81305, 16269 #### [facility] [address] [place] [address], USACO2 [Moles/Vol]27 mmol/ZPecqgv29-00Nbu [facility] CompanyComment on above:Performed By: #### 70628, 44291, 35730, 20751, 03831 #### [facility] [address] [place] [address], USACreatinine [Mass/Vol]0.81 mg/dLNormal0.60-1.20[facility] CompanyComment on above:Performed By: #### 90875, 95944, 12249, 13381, 37117 #### [facility] [address] [place] [address], USAGFR/1.73 sq M predicted among blacks MDRD (S/P/Bld) [Vol rate/Area]mL/min/{1.73_m2}Normal>60[facility] Comment on above:Performed By: #### 56488, 97647, 84142, 09045, 67839 #### [facility] [address] [place] [address], USAGFR/1.73 sq M predicted among non-blacks MDRD (S/P/Bld) [Vol rate/Area]mL/min/{1.73_m2}Normal>60[facility] Comment on above:Performed By: #### 89902, 16506, 80363, 32168, 51374 #### [facility] [address] [place] [address], USAGlucose [Mass/Vol]115 mg/fAJdwo09-784Gfy [facility] CompanyComment on above:Performed By: #### 14115, 59707, 57376, 10981, 35845 #### [facility] [address] [place] [address], USAPotassium [Moles/Vol]3.9 mmol/LNormal3.5-5.1The [facility] CompanyComment on above:Performed By: #### 24687, 64814, 15061, 93685, 37319 #### [facility] [address] [place] [address], USASodium [Moles/Vol]140 mmol/ZTjddxt351-380Eyv [facility] CompanyComment on above:Performed By: #### 79528, 33633, 55993, 84316, 06279 #### [facility] [address] [place] [address], USAUrea nitrogen [Mass/Vol]20 mg/dLNormal7-25The [facility] CompanyComment on above:Performed By: #### 48191, 48315, 90223, 29410, 34291 #### [facility] [address] [place] [address], USAPREALBUMINon 34-70-3385Ckjxzmwhwf [Mass/Vol]24.0 mg/dL Iglnjs01.0-34.0The [facility] CompanyComment on above:Performed By: #### 25830, 40890, 19251, 68398, 83765 #### [facility] [address] [place] [address], USATIBIA FIBULA LEFTon 24-60-4206EJRSD FIBULA LEFTUnFirelands Regional Medical Center Department of Radiology [address] [place] [id number] Patient Name: RADHA ZAIDI : 1960 [...] indicated. Electronically signed: Eliezer Randolph. Transcribed by: [id number], User Resident: Electronically Signed by: ELIEZER RANDOLPH @ 02/04/2020 10:34 AMNormalThe [facility] CompanyTRANSFERRINon 41-26-5559Eghhvotoamu [Mass/Vol]270 mg/qRWzrirp347-560Zwz [facility] CompanyComment on above:Performed By: #### 30440, 23163, 44461, 70583, 49957 #### [facility] [address] [facility] [place] [address], USAVITAMIN D 25-HYDROXYon 29-46-8138EMKVDGJ D 25-OH38.5 ng/mL Iwhzxw72.0-80.0The [facility] CompanyComment on above:Result Comment: >80.0 Toxicity possiblePerformed By: #### 42983, 83722, 80347, 25402, 60776 #### [facility] [address] [facility] [place] [address], USAFLUORO FOR SURGICAL PROCEDURESon 77-90-4498ZDJGZM FOR SURGICAL PROCEDURESExam: FLUORO FOR SURGICAL PROCEDURESHistory: ACDF Fusion Findings: Fluoroscopy time was 70 seconds A total of 19 fluoroscopic images were obtained by Dr. Cheng during the anterior cervical discectomy inthe lower cervical spine.IMPRESSION: Impression: Fluoroscopic assistance provided for operative guidance.Interpreted by:DIANA Lealigned by:Eugene Cancino MD4//18Final resultNormalPikes Peak Regional HospitalBasic Metabolic Panelon 03-57-2311Yygey gap15 mmol/LCritically high7-13[facility] Calcium9.6 mg/dLNormal8.6-10.2MWeisbrod Memorial County HospitalChloride102 mmol/L Pflpes51-132DemvyPikes Peak Regional HospitalCO223 mmol/LGcrfhh24-85OrvixPikes Peak Regional HospitalCreatinine0.54 mg/dLNormal0.50-0.90[facility] eGFR (black)mL/min/{1.73_m2}Normal>60[facility] HospitalComment on above:Result Comment: >60 mL/min/1.73m2 EGFR, calc. for ages 18 and older using theMDRD formula (not corrected for weight), is valid for stablerenal function. eGFR (MDRD)mL/min/{1.73_m2}Normal>60[facility] HospitalComment on above:Result Comment: >60 mL/min/1.73m2 EGFR, calc. for ages 18 and older using theMDRD formula (not corrected for weight), is valid for stablerenal function. Glucose mass conc97 mg/aOXprvxp98-703IyoqzPikes Peak Regional HospitalPotassium molar conc4.8 mmol/LNormal3.5-5.1MSt. Anthony Hospitalodium140 mmol/L Xiqlym183-519IvutzPikes Peak Regional HospitalUrea jrwihdmq32 mg/dLNormal6-20[facility] HospitalCBC With Platelet No Differentialon 29-89-2871Bfqwgsahlug distribution width Auto Ratio (RBC)13.3 %Mpomoc45.5-14.5[facility] Regional HospitalErythrocytes (RBC)4.96 10*6/uLNormal4.20-5.40[facility] Hematocrit (HCT)47.1 %Critically high37.0-47.0[facility] Hemoglobin mass conc (Bld)16.2 g/dLCritically high12.0-16.0[facility] HospitalMCH32.7 pgCritically high27.0-31.3MWeisbrod Memorial County Hospital MCHC mass conc (RBC)34.4 %Yrtiut03.0-37.0[facility] HospitalMCV95.0 fL Jdqzlk12.0-100.0[facility] HospitalPlatelets223 10*3/kYCxyxof094-993 [facility] HospitalWBC (Leukocytes)6.2 10*3/uLNormal4.8-10.8[facility] HospitalCulture, MRSA Screenon 00-36-1931Xeitktn, MRSA Screen ORDERED BY: VITO STALLWORTH: Nares Nose COLLECTED: 10/13/17 13:18[facility] AT [facility].: RECEIVED : 10/13/17 13:18Culture, MRSA Screen FINAL 10/14/17 13:59 No MRSA isolatedNoMemorial Hospital NorthPartial Thromboplastin Timeon 16-17-3285tVWY81.9 xUwgfwe81.6-35.4[facility] HospitalComment on above:Result Comment: Heparin Therapeutic Range: 38.8 - 54.6 seconds.Prothrombin Timeon 38-56-6247SGW Coag RelTime (PPP)1.0 {INR}NormalPikes Peak Regional HospitalComment on above:Result Comment: Recommended INR therapeutic ranges [...] sec Prothrombin time (PT) Coag time (PPP)10.0 sNormal8.1-13.7[facility] HospitalType and Screen Capture 3 scrn cellon 94-71-8266Fgpccaoba (total)PATIENT: DYAN GARCIA LOC: [facility] BILL# : [id number] : 1960 SEX: FORDERED BY: BASIM CHENG ORDERED : 10/13/2017 12:41 COLLECTED: 10/13/2017 13:24ORDER : [id number] RECEIVED : 10/13/2017 13:24 ---TEST NAME RESULT UNITS RANGES ABN FL STABORH Capture A POS FAntibody 3 Cell Scrn Captu NEG F NormalPikes Peak Regional HospitalUrinalysis, reflex to cultureon 92-51-0111Vjwsiuusd Ql (U) NegativeNormalNegMiddle Park Medical Center - GranbyUrine Reflexed to CultureNot IndicatedNoMemorial Hospital NorthUrine, clarityClearNormalClearPikes Peak Regional HospitalUrine, colorYellowNormalStraw/YellPikes Peak Regional HospitalUrine, glucose presenceNegativeNormalNegMiddle Park Medical Center - [place]by Urine, hemoglobin presenceNegativeNormalNegMiddle Park Medical Center - [place]by Urine, ketones presenceNegativeNormalNegMiddle Park Medical Center - GranbyUrine, leukocyte esterase presenceNegativeNormalNegMiddle Park Medical Center - [place] Urine, nitrite presenceNegativeNormalNegMiddle Park Medical Center - GranbyUrine, pH5.5 [pH]Normal5.0-9.0[facility] HospitalUrine, protein presence NegativeNormalNegMiddle Park Medical Center - GranbyUrine, specific gravity1.018 Normal1.005-1.03P[facility] Peak Regional HospitalUrine, urobilinogen0.2 {Rajwinder'U}/dLNormal< 2.0[facility] Vital Signs Date TimeVital SignValuePerforming NhjlibrpxYlhhhomo51-29-0528 10:55-0500Body czshil196.6 cmJordan Yuan [employer] Work Phone: noConnotateLkrzcoueol01-54-2791 10:55-0500Body mass index (BMI) [Ratio]28.15 kg/y4SprdrJordan Yuan [employer] Work Phone: [facility] LawnUldaumheqo28-98-6663 10:55-0500Body awvave99.39 kgJaroman Brown DO Work Phone: [facility] LawnKxwhialqnt75-78-3153 18:36-0400Diastolic blood mm[Hg]John Ball DO Work Phone: [phone] [place], [place] 3604110-20-2025 18:36-0400 Heart rate72 /minBenjamin Ball DO Work Phone: [phone] [place], [place] 3604110-20-2025 18:36-0400 Inhaled oxygen flow rate15 L/minBenjamin Ball DO Work Phone: [phone] [place], [place] 3604110-20-2025 18:36-0400 Respiratory rate16 /minBenjamin Ball DO Work Phone: [phone] [place], [place] 3604110-20-2025 18:36-0400 SaO2% (BldA) [Mass fraction]94 %John Ball DO Work Phone: [phone] [place], [place] 3604110-20-2025 18:36-0400 Systolic blood abljxqoo438 mm[Hg]John Ball DO Work Phone: [phone] [place], [place] 3604110-20-2025 18:16-0400 Inhaled oxygen czddqcwmzxlme867 %John Ball DO Work Phone: [phone] [place], [place] 3604110-20-2025 15:30-0400 Body jazngz389.1 cmBenjamin Ball DO Work Phone: [phone] [place], [place] 3604110-20-2025 15:30-0400 Body tnqaandylyy44 [degF]John Ball DO Work Phone: [phone])[address] [place], [place] 3604110-20-2025 15:30-0400 Body sqpact03.43 kgBenjamin Ball DO Work Phone: [phone] [place], [place] 3604108-27-2025 09:22-0400 Body edzzje308.1 cmBenjamin Ball DO Work Phone: [phone] [place], [place] 3604108-27-2025 09:22-0400 Body mass index (BMI) [Ratio]20.5 kg/w0Usjtzpis Ball DO Work Phone: [phone] [place], [place] 6743008-27-2025 09:22-0400 Body sglart03.84 kgBenjamin Ball DO Work Phone: [phone] [place], [place] 6743008-27-2025 09:22-0400 Diastolic blood tlexodov58 mm[Hg]John Ball DO Work Phone: [phone] [place], [place] 6743008-27-2025 09:22-0400 Heart rate80 /minBenjamin Ball DO Work Phone: [phone])[address]08-27-2025 09:22-0400 Respiratory rate12 /minBenjamin Ball DO Work Phone: 1(087)[address]08-27-2025 09:22-0400 Systolic blood ahukoehq733 mm[Hg]John Ball DO Work Phone: [phone])[address]04-29-2025 14:11-0400 Body ildtxn753.1 cmBenjamin Ball DO Work Phone: 1(360)[facility] [place], [place] 6743004-29-2025 14:11-0400 Body mass index (BMI) [Ratio]22.1 kg/d9Ithqduws Ball DO Work Phone: 1(828)[facility] [place], [place] 6743004-29-2025 14:11-0400 Body hqubjj75.44 kgBenjamin Ball DO Work Phone: [phone])[address]03-27-2025 14:49-0400 Body wajjll615.6 cmJason Brown DO Work Phone: [facility] LawnBbvipspxtg52-56-9041 14:49-0400Body mass index (BMI) [Ratio]28.15 kg/v6Vdcle Brown DO Work Phone: [facility] LawnOemknrgufx19-75-3777 14:49-0400Body stkaqb53.39 kgJason Brown DO Work Phone: [facility] LawnFilxjpqmgg89-45-3610 10:34-0400Body npuxpj513.1 cmMad[facility]03-18-2025 10:34-0400Body mass index (BMI) [Ratio]22.1 kg/e8VstuhqfbmMadison Health03-18-2025 10:34-0400Body dnpyek82.44 kgMadison Health03-18-2025 10:34-0400Diastolic blood dfqwuqly82 mm[Hg][facility]03-18-2025 10:34-0400 Heart rate72 /[facility]03-18-2025 10:34-0400 Respiratory rate16 /[facility]03-18-2025 10:34-0400 SaO2% (BldA) [Mass fraction]97 %[facility]03-18-2025 10:34-0400Systolic blood vsnxkakg032 mm[Hg][facility] 09-18-2024 10:17-0400Body afuibm519.6 cmJordan [employer] Work Phone: [phone] [place], [place] [address]Ayfkpunrbs81-54-3550 10:17-0400Body mass index (BMI) [Ratio]28.15 kg/e2Gvvpw alike Phone: [phone])[address]03-11-2025 10:17-0400Body bzxocd45.39 kgJordan [employer] Work Phone: [phone] [place], [place] [address]Mqrakyqkqv70-68-8929 15:44-0500Body ojzjbj093.1 cmMadison Health02-19-2025 15:44-0500Body mass index (BMI) [Ratio]22 kg/i3SeqmohbtjMadison Health02-19-2025 15:44-0500Body weight 60.04 kgMadison Health02-19-2025 15:44-0500Diastolic blood mm[Hg][facility]02-19-2025 15:44-0500Heart rate57 /[facility]02-19-2025 15:44-0500Respiratory rate12 /[facility]02-19-2025 15:44-0500Systolic blood mm[Hg][facility]01-07-2025 15:06-0500Body unelal131.6 cmJordan Yuan DO Work Phone: [phone] [place], [place] 8462701-07-2025 15:06-0500Body mass index (BMI) [Ratio]28.15 kg/j3YehapJordan Yuan DO Work Phone: 1(487)[address] [place], [place] 8462701-07-2025 15:06-0500Body aaipdr19.39 kgJordan Yuan DO Work Phone: 1(654)[address] [place], [place] 8462711-26-2024 14:20-0500Body iujrnu774.6 cmJordan Yuan DO Work Phone: [phone])[address] [place], [place] 8462711-26-2024 14:20-0500Body mass index (BMI) [Ratio]28.15 kg/g6XxakkJordan Yuan DO Work Phone: [phone])[address] [place], [place] 8462711-26-2024 14:20-0500Body temperature 97.5 [degF]Jordan Yuan DO Work Phone: [phone])[address] [place], [place] 8462711-26-2024 14:20-0500Body fjmycb33.39 kgJordan Yuan DO Work Phone: [phone])[address] [place], [place] 8462710-29-2024 10:38-0400Body vruvbw329.6 cmJordan Yuan DO Work Phone: [phone])[address] [place], [place] 8462710-29-2024 10:38-0400Body mass index (BMI) [Ratio]28.15 kg/h4EtqgkJordan Yuan DO Work Phone: 1(265)[address] [place], [place] 8462710-29-2024 10:38-0400Body temperature 97.39 [degF]Jordan Yuan DO Work Phone: [phone])[address] [place], [place] 8462710-29-2024 10:38-0400Body nejlfw80.39 kgJordan Yuan DO Work Phone: [phone])[address] [place], [place] 8462710-18-2024 13:08-0400Heart rate80 /min Jordan Yuan [address] [place], [place] 5486810-18-2024 13:08-7658GjZ1% (BldA) [Mass fraction]94 %Jordan Yuan [address] [place], [place] 9286110-18-2024 13:08-0400Blood Pressure LocationJordan Yuan [address] [place], [place] 9286110-18-2024 13:08-0400 Diastolic blood loijekgt56 mm[Hg]Jordan Yuan [address] [place], [place] 9286110-18-2024 13:08-0400Mean blood mnhuhukp91 mm[Hg]Jordan Yuan [address] [place], [place] 9286110-18-2024 13:08-0400 Systolic blood mm[Hg]Jordan Yuan [address] [place], [place] 9286110-18-2024 13:08-0400 Respiratory rate18 /Cyndy Yuan [address] [place], [place] 9286110-18-2024 11:23-0400Heart rate72 /Cyndy Yuan [address] [place], [place] 9286110-18-2024 11:23-0351GuC8% (BldA) [Mass fraction]100 %Jordan Yuan [address] [place], [place] 9286110-18-2024 11:22-0400Blood Pressure LocationJordan Yuan [address] [place], [place] 9286110-18-2024 11:22-0400 Diastolic blood lgkewqjv08 mm[Hg]Jordan Yuan [address] [place], [place] 9286110-18-2024 11:22-0400Mean blood mm[Hg]Jordan Yuan [address] [place], [place] 9286110-18-2024 11:22-0400 Systolic blood mm[Hg]Jordan Yuan [address] [place], [place] 9286110-18-2024 11:22-0400 Respiratory rate18 /minJordan Yuan [address] [place], [place] 9286110-18-2024 11:15-0400Blood Pressure LocationJordan Yuan [address]10-18-2024 11:15-0400Body hglghgsxdwu94.16 [degF]Jordan Yuan [address] [place], [place] 9286110-18-2024 11:15-0400 Diastolic blood iivpddoq02 mm[Hg]Jordan Yuan [address] [place], [place] 9286110-18-2024 11:15-0400Heart rate79 /Cyndy Yuan [address] [place], [place] 9286110-18-2024 11:15-0400Mean blood wsuoinhz02 mm[Hg]Jordan Yuan [address] [place], [place] 9286110-18-2024 11:15-0400 Respiratory rate20 /Cyndy Yuan [address] [place], [place] 9286110-18-2024 11:15-3786TeS2% (BldA) [Mass fraction]100 %Jordan Yuan [address] [place], [place] 9286110-18-2024 11:15-0400 Systolic blood pknowjbf039 mm[Hg]Jordan Yuan [address] [place], [place] 9286110-18-2024 11:05-0400Mean blood qneotkau55 mm[Hg]Jordan Yuan [address] [place], [place] 9286110-18-2024 11:05-0400 Respiratory rate16 /Cyndy Yuan [address] [place], [place] 5486810-18-2024 10:50-0400Mean blood mm[Hg]Jordan Yuan [address] [place], [place] 9286110-18-2024 10:50-0400 Respiratory rate9 /Cyndy Yuan [address] [place], [place] 9286110-18-2024 10:10-0400Body quzjqrjbkwm31.16 [degF]Jordan Yuan [address] [place], [place] 928[address]10-18-2024 10:05-0400 Respiratory rate12 /Cyndy Yuan [facility] [place]10-18-2024 06:23-0400Mean blood lhaciahd32 mm[Hg]Jordan Yuan [facility] [place]10-18-2024 06:22-0400Body gcneyqlpmsa54.7 [degF]Jordan Yuan [facility] [place]10-08-2024 15:14-0400[facility] 15:14-0400Body mass index (BMI) [Ratio]23.1 kg/[facility]10-08-2024 15:14-0400Body .16 [facility]10-08-2024 15:14-0400Diastolic blood mm[Hg][facility] 04-17-2024 15:14-0400Heart rate84 /[facility] 04-17-2024 15:14-0400Respiratory rate12 /[facility] 04-17-2024 15:14-0400Systolic blood ejtmluxd319 mm[Hg][facility]09-17-2024 16:24-0400Body loxxro876.1 [facility] 03-27-2024 16:24-0400Body mass index (BMI) [Ratio]23.9 kg/e0Wtepnvndp[facility]09-17-2024 16:24-0400Body uibjay02.31 [facility]09-17-2024 16:24-0400Diastolic blood iwtcovjb25 mm[Hg][facility]09-17-2024 16:24-0400Heart rate87 /[facility]09-17-2024 16:24-0400Respiratory rate12 /[facility]09-17-2024 16:24-0400Systolic blood mdsjnfwu919 mm[Hg][facility]09-09-2024 12:28-0400Diastolic blood qyffywyz83 mm[Hg]Jordan Yuan [address] [place], [place] 5486809-09-2024 12:28-0400 Systolic blood mm[Hg]Jordan Yuan [address] [place], [place] 5486809-09-2024 12:27-0400Blood Pressure LocationJordan Yuan [address]09-09-2024 12:27-0400Body fgbzoskzqpx29.88 [degF]Jordan Yuan [address] [place], [place] 5486809-09-2024 12:27-0400 Diastolic blood xakmffpn60 mm[Hg]Jordan Yuan [address]09-09-2024 12:27-0400Heart rate75 /minJordan Yuan [address] [place], [place] 9286109-09-2024 12:27-0400Mean blood mm[Hg]Jordan Yuan [address]09-09-2024 12:27-0400 Respiratory rate15 /minJordan Yuan [address] [place], [place] 5486809-09-2024 12:27-6910AhO2% (BldA) [Mass fraction]97 %Jordan Yuan [address] [place], [place] 5486809-09-2024 12:27-0400 Systolic blood tkpvmdyp252 mm[Hg]Jordan Yuan [address] [place], [place] 9286108-21-2024 09:29-0400Body dddace897.1 [facility]2024 09:29-0400Body mass index (BMI) [Ratio]24.1 kg/l3KkutfczrsMadison Health08-21-2024 09:29-0400Body cwevtm34.82 kgMad[facility]08-21-2024 09:29-0400Diastolic blood pxkfagyo73 mm[Hg][facility] 02-29-2024 09:29-0400Heart rate74 /[facility] 02-29-2024 09:29-0400Respiratory rate12 /[facility] 02-29-2024 09:29-0400Systolic blood iifhwgmj325 mm[Hg][facility]06-19-2024 15:31-0400Body .1 [facility] 12-28-2023 15:31-0400Body mass index (BMI) [Ratio]25.7 kg/r4QofwjkpymMadison Health06-19-2024 15:31-0400Body bojxsx85.08 [facility]06-19-2024 15:31-0400Diastolic blood rtbyoogh83 mm[Hg][facility]06-19-2024 15:31-0400Heart rate92 /[facility]06-19-2024 15:31-0400Respiratory rate12 /[facility]06-19-2024 15:31-0400Systolic blood bclrpgyq777 mm[Hg][facility]05-07-2024 15:42-0400Body tknoub659.6 [employer] Work Phone: [phone] [place], [place] [address]Drlqgstzgo75-22-2517 15:42-0400Body mass index (BMI) [Ratio]28.15 kg/b8Tcxbg [employer] Work Phone: [facility] LawnSunhvlpicn41-28-0924 15:42-0400Body phzyvx52.39 kgJordan Yuan [employer] Work Phone: [phone] [place], [place] [address]Vjcjjsudys90-49-4252 15:16-0400Body xbjtsa013.1 [facility]03-20-2024 15:16-0400Body mass index (BMI) [Ratio]27.8 kg/r1DsamzuozqMadison Health03-20-2024 15:16-0400Body mabigd24.92 [facility]03-20-2024 15:16-0400Diastolic blood xecaztwt92 mm[Hg][facility]03-20-2024 15:16-0400 Heart rate80 /[facility]03-20-2024 15:16-0400 Respiratory rate12 /minMadison Health03-20-2024 15:16-0400 Systolic blood xmikkeek467 mm[Hg][facility]02-26-2024 21:48-0500Body pzgmba915.37 cmBenjamin Ball Other [employer] Other 02-26-2024 16:33-0500Body zqyaoh654.1 cm[facility]02-26-2024 16:33-0500Body mass index (BMI) [Ratio]28.5 kg/l8NexrvoocjMadison Health02-26-2024 16:33-0500Body beouzu66.79 kg [facility]02-26-2024 16:33-0500Diastolic blood lvmoitkc12 mm[Hg][facility]02-26-2024 16:33-0500Heart rate97 /min [facility]02-26-2024 16:33-0500Systolic blood jvnojvzj394 mm[Hg][facility]02-08-2024 15:40-0500Body .6 cm Jordan Yuan DO Work Phone: [employer] Hmnvlppcjj94-27-6059 15:40-0500Body mass index (BMI) [Ratio]28.15 kg/y6XaycdJordan Yuan [employer] Work Phone: noConnotateLicgnbfgay36-83-6385 15:40-0500Body temperature 97.11 [degF]Jordan Yuan DO Work Phone: noConnotateCdecsexvog68-29-8471 15:40-0500Body nkssiy49.39 kgJordan Yuan [employer] Work Phone: noConnotateBvrlpqcxbc03-88-7462 15:00-0500Body lspmsa266.37 cmBenjamin Ball Other [employer] Other 02-07-2024 15:00-0500Body mass index (BMI) [Ratio] 28.12 kg/a1Gdntztyk Ball Other [employer] Other 02-07-2024 15:00-0500Body upywro84.84 kgBenjamin Ball Other [facility] [employer] Other 02-07-2024 15:00-0500Diastolic blood mm[Hg] John Ball Other [facility] [employer] Other 02-07-2024 15:00-0500Respiratory rate12 /minBenjamin Ball Other [facility] [employer] Other 02-07-2024 15:00-0500Systolic blood cpfkznes547 mm[Hg] John Ball Other [facility] [employer] Other 09-28-2023 14:00-0400Body yyqtegnmxpj41.52 [degF]Jordanroman Yuan [facility]09-28-2023 14:00-0400 Diastolic blood oqhsbqnh26 mm[Hg]Jordan Yuan [facility]09-28-2023 14:00-0400Heart rate88 /Cyndy Yuan [facility]09-28-2023 14:00-0400Mean blood dxuqgstl80 mm[Hg]Jordan Anderson [facility]09-28-2023 14:00-0883XiF2% (BldA) [Mass fraction]94 %Jordan Yuan [facility]09-28-2023 14:00-0400 Systolic blood twjerfaw288 mm[Hg]Jordan Anderson [facility]09-28-2023 08:47-0400 Diastolic blood vpvustsy44 mm[Hg]Jordan Anderson [facility]09-28-2023 08:47-0400 Systolic blood algihrtq318 mm[Hg]Jordan Yuan [address] [place], [place] 5486809-28-2023 07:45-0400Blood Pressure LocationJordan Yuan [address] [place], [place] 5486809-28-2023 07:45-0400Body efdwnykdfks37.88 [degF]Jordan Yuan [address] [place], [place] 5486809-28-2023 07:45-0400 Diastolic blood mm[Hg]Jordan Yuan [address] [place], [place] 5486809-28-2023 07:45-0400Heart rate72 /Cyndy Yuan [address] [place], [place] 9286109-28-2023 07:45-0400 Hourly RoundingJordan Yuan [address] [place], [place] 9286109-28-2023 07:45-0400Mean blood xtvgnfoq47 mm[Hg]Jordan Yuan [address] [place], [place] 5486809-28-2023 07:45-0400 Promise to ReturnJordan Yuan [address] [place], [place] 5486809-28-2023 07:45-0400 Respiratory rate16 /Cyndy Yuan [address] [place], [place] 5486809-28-2023 07:45-1504NxW6% (BldA) [Mass fraction]96 %Jordan Yuan [address] [place], [place] 5486809-28-2023 07:45-0400 Systolic blood vkuiwscp614 mm[Hg]Jordan Yuan [address] [place], [place] 5486809-28-2023 06:17-0400 Hourly RoundingJordan Yuan [address] [place], [place] 5486809-28-2023 06:17-0400 Promise to ReturnJordan Yuan [address] [place], [place] 5486809-28-2023 05:05-0400 Hourly RoundingJordan Yuan [address] [place], [place] 5486809-28-2023 05:05-0400 Promise to ReturnJordan Yuan [address] [place], [place] 5486809-27-2023 22:20-0400Blood Pressure LocationJordan Yuan [address] [place], [place] 9286109-27-2023 22:20-0400Body eqyfwtyaeve67.24 [degF]Jordan Yuan [address] [place], [place] 5486809-27-2023 22:20-0400Heart rate74 /Cyndy Yuan [address] [place], [place] 5486809-27-2023 22:20-0400Mean blood mm[Hg]Jordan Yuan [address] [place], [place] 9286109-27-2023 22:20-0400 Respiratory rate16 /Cyndy Yuan [address] [place], [place] 5486809-27-2023 22:20-8418DiJ8% (BldA) [Mass fraction]93 %Jordan Yuan [address] [place], [place] 5486809-27-2023 20:10-0400Heart rate65 /Cyndy Yuan [address] [place], [place] 5486809-27-2023 20:01-0400Body veddzrfnxme81.34 [degF]Jordan Yuan [address] [place], [place] 5486809-27-2023 20:00-0400Mean blood kovjhevs96 mm[Hg]Jordan Yuan [address] [place], [place] 5486809-27-2023 16:17-0400Mean blood hxpfuadt36 mm[Hg]Jordan Yuan [address] [place], [place] 9286109-27-2023 16:16-0400Body iguywepsric80.52 [degF]Jordan Yuan [address] [place], [place] 9286109-27-2023 13:49-0400Mean blood vegipsji35 mm[Hg]Jordan Yuan [address]09-27-2023 12:45-0400 Respiratory rate13 /Cyndy Yuan [address] [place], [place] 9286109-27-2023 12:35-0400 Respiratory rate10 /Cyndy Yuan [address] [place], [place] 5486809-27-2023 12:20-0400 Respiratory rate17 /Cyndy Yuan [address] [place], [place] 9286109-27-2023 11:37-0400Body hxkojlvugwq13.98 [degF]Jordan uYan [address] [place], [place] 9286109-27-2023 06:39-0400Heart rate68 /Cyndy Yuan [address] [place], [place] 9286109-14-2023 14:52-0400 Diastolic blood azhgxymd62 mm[Hg]Jordan Yuan [address] [place], [place] 5486809-14-2023 14:52-0400Heart rate67 /Cyndy Yuan [address] [place], [place] 5486809-14-2023 14:52-0400Mean blood rhlhpwue77 mm[Hg]Jordan Yuan [address] [place], [place] 5486809-14-2023 14:52-0400 Systolic blood vbtbkqec223 mm[Hg]Jordan Yuan [address] [place], [place] 5486809-14-2023 14:52-0400Heart rate68 /Cyndy Yuan [address] [place], [place] 5486809-14-2023 14:52-3880ZyG8% (BldA) [Mass fraction]99 %Jordan Yuan [address] [place], [place] 5486809-14-2023 14:52-0400 Diastolic blood jgehnvud33 mm[Hg]Jordan Yuan [facility]09-14-2023 14:52-0400Mean blood rpizfmlu79 mm[Hg]Jordan Yuan [facility]09-14-2023 14:52-0400 Systolic blood amxkjjfv789 mm[Hg]Jordan Yuan [facility]09-14-2023 14:51-0400 Respiratory rate16 /minJordan Yuan [facility]07-03-2023 15:00-0400Body onwcmh430.37 cmBenjamin Ball Other [facility] [employer] Other 07-03-2023 15:00-0400Body mass index (BMI) [Ratio] 27.04 kg/d2Xgknyhsb Ball Other [facility] [employer] Other 07-03-2023 15:00-0400Body occmgn56.84 kgBenjamin Ball Other [facility] [employer] Other 07-03-2023 15:00-0400Diastolic blood yndfdgwi50 mm[Hg] John Ball Other [facility] [employer] Other 07-03-2023 15:00-0400Respiratory rate12 /minBenjamin Ball Other [employer] Other 07-03-2023 15:00-0400Systolic blood uyryadzy464 mm[Hg] John Ball Other [employer] Other 06-01-2023 09:00-0400Body wnybbz294.37 cmBenjamin Ball Other [employer] Other 06-01-2023 09:00-0400Body mass index (BMI) [Ratio] 27.33 kg/e0Kwpwtvnx Ball Other [employer] Other 06-01-2023 09:00-0400Body .66 kgBenjamin Ball Other [employer] Other 06-01-2023 09:00-0400Diastolic blood pbystgnf09 mm[Hg] John Ball Other [employer] Other 06-01-2023 09:00-0400Respiratory rate12 /minBenjamin Ball Other [employer] Other 06-01-2023 09:00-0400Systolic blood vwkgdtao748 mm[Hg] John Ball Other [employer] Other 05-02-2023 15:00-0400Body veqxjs123.37 cmBenjamin Ball Other [employer] Other 05-02-2023 15:00-0400Body mass index (BMI) [Ratio] 27.36 kg/i3Ipsbukwp Ball Other [employer] Other 05-02-2023 15:00-0400Body curhio91.75 kgBenjamin Ball Other [employer] Other 05-02-2023 15:00-0400Diastolic blood qctputts32 mm[Hg] John Ball Other [employer] Other 05-02-2023 15:00-0400Respiratory rate12 /minBenjamin Ball Other [employer] Other 05-02-2023 15:00-0400Systolic blood gefgjgzi655 mm[Hg] John Ball Other [employer] Other 01-16-2023 16:30-0500Body waimgy223.37 cmBenjamin Ball Other [employer] Other 01-16-2023 16:30-0500Body mass index (BMI) [Ratio] 26.28 kg/m7Wiicptom Ball Other [employer] Other 01-16-2023 16:30-0500Body qeqzim58.76 kgBenjamin Ball Other [employer] Other 01-16-2023 16:30-0500Diastolic blood mm[Hg] John Ball Other [employer] Other 01-16-2023 16:30-0500Respiratory rate12 /minBenjamin Ball Other [employer] Other 01-16-2023 16:30-0500Systolic blood fqavftyk224 mm[Hg] John Ball Other [employer] Other Encounters Encounter DateEncounter TypeCare ProviderFacilityStart: 05-13-2025 End: 59-11-8802xxgktcahepCFSGH A BROWNNot AvailableStart: 05-13-2025 End: 15-92-2749Nfgmfed encounter procedureJordan Yuan DO Work Phone: [facility] OrthopaedicsComment on above:Hx of total shoulder replacement, right (Primary Dx)Start: 05-13-2025 End: 90-82-1327wpodhwitblJBNCU A BROWNNot AvailableStart: 05-13-2025 End: 70-59-3227ltuoqzeuarAPKHO A BROWNNot AvailableStart: 04-29-2025 End: 75-02-1692Ediammzzo department patient visitBegloria Ashby DO Work Phone: [phone]-Sghsugxnw Room Work Phone: Start: 69-50-5922yvtpmnkrsbFrtkafus Ball DO Work Phone: [facility] Work Phone: Start: 77-32-6543Hgl-patient / Non-visitBenjamin Ball DO-[facility] Work Phone: Start: 93-88-1482Twk-patient / Non-visitBenjamin Ball DO-[facility] Work Phone: Start: 03-06-2025 End: 64-74-6192yeyvefqgpyFndvldge Ball DO Work Phone: [facility] Work Phone: Start: 03-06-2025 End: 71-07-0283Sswosln encounter procedureBentheresamin Ball DO-[facility] Work Phone: Start: 03-04-2025 End: 99-39-4740shticcrhogDbbkeiv Vytautas Giedraitis MDFacility:PM Melfa Start: 12-10-2024 End: 21-89-4924toyabuarxvKTJZMD [facility] Start: 11-19-2024 End: 84-49-6404fzdjblphobTyfaprw Vytautas Giedraitis MDFacility:[facility] Start: 11-06-2024 End: 19-76-8637ctgimohkrrOnvusfnt Ball DO Work Phone: [facility] Work Phone: Start: 11-06-2024 End: 43-15-1062Uhyrvyi encounter procedureBenwali Ball DO Work Phone: [facility] Work Phone: Start: 11-06-2024 End: 23-45-9107Tbrgxeh encounter procedureBenjamin Ball DO Work Phone: [facility] Start: 11-06-2024 End: 00-91-3593uhwdqgoxliKlmmzjqb Ball DO Work Phone: [facility] Work Phone: Start: 10-29-2024 End: 11-30-2373eubmjulbjpNuaiuto Vytautas Giedraitis MDFacility:[facility] Start: 10-08-2024 End: 72-70-6831ncvokgyhrkRzmbhzb Vytautas Giedraitis MDFacility:PM Tab[facility] Start: 10-04-2024 End: 94-11-9206Wekuwgz encounter procedureJordan Yuan DO Work Phone: NOMS NB ORTHOComment on above:Complete tear of left rotator cuff, unspecified whether traumatic (Primary Dx)Start: 10-04-2024 End: 68-02-4671qljwcddlseGFFPM A BROWNNot AvailableStart: 10-04-2024 End: 05-20-4736Sadguw flowsheetJordan Rogers Brown DO Work Phone: NOMS ORTHOStart: 10-04-2024 End: 57-57-6232Ljdlxa flowsheetJordan Rogers Brown DO Work Phone: NOMS ORTHOStart: 09-28-2024 End: 12-84-3830fmdfkgqfsrXleqf A BrownFacility:FTMCStart: 09-25-2024 End: 49-53-1190mtvhywqnvvJhyeecjiuSelect [facility] Work Phone: Start: 09-25-2024 End: 91-61-8824Ptzlzjj encounter procedureUnc Health Physician Group-[facility] Nephrology Hoang Work Phone: Start: 09-18-2024 End: 19-28-6168Fapwjhu encounter procedureJordan Yuan DO Work Phone: NOMS NB ORTHOComment on above:S/P arthroscopy of left shoulder (Primary Dx)Start: 09-18-2024 End: 38-32-9482sdbhnotvbyWGXEG A BROWNNot AvailableStart: 70-59-0283Ouu-patient / Non-visitUn[facility] Work Phone: Start: 08-29-2024 End: 93-50-5216olloifxnfbJgilyidmySelect [facility] Work Phone: Start: 08-29-2024 End: 45-84-1703Qjrnirwcu for general adult medical examination without abnormal findingsMercy Health – The Jewish Hospitaltart: 08-29-2024 End: 68-43-0128Ykvnwql encounter procedureUn[facility] Health Phys[facility] Work Phone: Start: 36-91-0443Nrbtndd encounter statusMercy Health – The Jewish Hospitaltart: 07-17-2024 End: 88-87-9417Sntsrfa encounter procedureJordan Yuan DO Work Phone: noMS NB ORTHOComment on above:S/P arthroscopy of left shoulder (Primary Dx)Start: 07-17-2024 End: 98-87-8980lbgsmypyesCCEJO A BROWNNot AvailableStart: 07-17-2024 End: 43-80-5494Hqeamf flowsheetJordan Yuan DO Work Phone: NOMS ORTHOStart: 07-17-2024 End: 02-94-3096Gxooks Randall Yuan DO Work Phone: NOMS ORTHOStart: 50-52-7091Edd-patient / Non-visit [facility] Work Phone: Start: 06-14-2024 End: 97-25-4294Etuwtic encounter procedureUn[facility] Health [facility] Work Phone: Start: 06-05-2024 End: 57-12-5034avdytpivwwBRXNQ A BROWNNot AvailableStart: 06-05-2024 End: 70-12-0565Mivrale encounter procedureJordan Yuan DO Work Phone: NOMS NB ORTHOComment on above:Status post shoulder surgery (Primary Dx)Start: 05-09-2024 End: 47-49-0665dhgahdeoigBwfczhmuzSelect [facility] Work Phone: Start: 05-09-2024 End: 87-48-4527Exaxbqj encounter procedureFirpareshs Physician Group-[facility] Work Phone: Start: 05-08-2024 End: 50-25-7174Ycsxwvu encounter Radha Yuan DO Work Phone: noms NB ORTHOComment on above:Status post shoulder surgery (Primary Dx)Start: 04-27-2024 End: 11-02-2619Vjtvxrixu to same day surgery hacker valleyJordan Yuan [facility] Start: 04-27-2024 End: 04-88-5204bzaraikmnfEC Jordan YuanFacility:FTMCStart: 04-17-2024 End: 88-53-8013ovrsbwlzmvAazgmcxjoSelect [facility] Work Phone: Start: 04-17-2024 End: 75-06-2485Wpawpjf encounter procedureFirpareshs Physician Group-[facility] Work Phone: Start: 04-10-2024 End: 94-42-8694njnazxvwpoOvylhqnbtSelect [facility] Work Phone: Start: 04-10-2024 End: 20-89-3041Bjokoxw encounter procedureFirwaddingtons Physician Group-[facility] Work Phone: Start: 03-30-2024 End: 64-26-7590nhjvowgthgIfdponlggSelect Medical [facility] Work Phone: start: 03-30-2024 End: 69-49-2646Ggkjyzr encounter procedureFirwaddingtons Physician Group-[facility] Work Phone: start: 03-27-2024 End: 28-95-1549nlvstswmarTkyabjsgqSelect [facility] Work Phone: start: 03-27-2024 End: 88-62-0799Dnmwlgw encounter procedureUnc Health Physician Group-[facility] Work Phone: Start: 78-22-6520Ohhjrbq encounter statusMercy Health – The Jewish Hospitaltart: 03-19-2024 End: 21-69-6395bscncfuapqXujup A BrownFacility:FTMCStart: 03-19-2024 End: 85-20-3375Nmhrrzc encounter Radha Yuan [facility] Start: 02-29-2024 End: 21-37-3568wxfxekbougEakfvsceaZanesville City Hospital Work Phone: Start: 02-29-2024 End: 70-35-1097Gcyofox encounter procedureUnc Health Physician Group-[facility] Work Phone: Start: 82-55-5052Loh-patient / Non-visitUn[facility] Health Physician [facility] Work Phone: Start: 20-66-5400Cri-patient / Non-visitUnc Health Physician Group-[facility] Work Phone: Start: 12-28-2023 End: 73-86-4049kgvsunbpkrYlitatuwsZanesville City Hospital Work Phone: Start: 12-28-2023 End: 79-88-9516Sxsjfay encounter procedureUnc Health Physician GroupPeoples [facility] Work Phone: Start: 11-15-2023 End: 72-89-5924Gcohomr encounter Radha Yuan DO Work Phone: noms NB ORTHOComment on above:Status post shoulder surgery (Primary Dx)Start: 09-28-2023 End: 89-84-1087nvsofiqajvWymyhzdpgZanesville City Hospital Work Phone: Start: 09-28-2023 End: 69-11-8380Izlbelx encounter procedureJamirriverside regional medical center Physician Group-[facility] Work Phone: Start: 09-06-2023 End: 96-41-7980tutrgwbbvxAiokx Sue AndersonFacility:FTMCStart: 09-06-2023 End: 11-90-2511Qnqwyvn encounter procedureJordan Yuan [facility] Start: 09-06-2023 End: 48-55-5446Hxnvmhzgg Result EncounterJordan Yuan DO Work Phone: NOYM External Department UnsolicitedStart: 09-06-2023 End: 11-42-0986Vbbvwkhhv Result EncounterJordan Yuan DO Work Phone: NOFD External Department UnsolicitedStart: 09-05-2023 Non-patient / Non-visitFirelands Physician GroupNorthern [facility] Work Phone: Start: 09-05-2023 End: 51-16-1176ytvpuabunhZfnblzdd Symone Other [employer] Other Start: 94-93-1002Vnqbzpwkg encountergloria [facility] Centertart: 18-98-2483Edt-patient / Non-visitFirelands Physician GroupNorthern State Hospital [facility] Work Phone: Start: 74-88-7580Fpk-patient / Non-visitFirelands Physician GroupNorthern State Hospital [facility] Work Phone: Start: 08-18-2023 End: 91-87-2751Yrhejoz encounter procedureJordan Yuan DO Work Phone: NONF NB ORTHOComment on above:Right shoulder pain, unspecified chronicity (Primary Dx)Start: 89-22-8324Zcoai abstractShanaorman Rogers Anderson DO Work Phone: NOMS NB ORTHOStart: 08-17-2023 End: 95-06-3483ntrnvjejcyOlbczxyd Symone Other [employer] Other Start: 52-91-3385Hgihgzblp for general adult medical examination without abnormal findingsBenwali NorrisG [facility] ClinicStart: 15-78-9833Rpgsyjzn preventive med est patient 40-64yrsBenwali BallFPG [facility] ClinicStart: 06-28-2023 End: 56-36-3039gvcikhfcphLildxadm Ball Other [employer] Other Start: 20-80-5046Naticv outpatient visit 15 minutes John JrG [facility] ClinicStart: 05-06-2023 End: 49-82-1763npnreesczmNgqtnnhs Ball Other [employer] Other Start: 16-92-2799Zbseewcgm encounterBenwali BallALFREDG [facility] ClinicStart: 04-26-2023 End: 28-22-2666jtahrbfbzbYgyrxwvl Ball Other [employer] Other Start: 50-96-7570Zlqlcskbu encounterBenwali NorrisG [facility] ClinicStart: 04-06-2023 End: 83-82-1317Govhdzdzb to same day surgery Domingo Yuan [facility] Start: 04-06-2023 End: 63-82-0296yjsgmlxoabWmsat A BrownFacility:FTMCStart: 03-31-2023 End: 37-36-2457szqssglxdeUyitwbul Ball Other [employer] Other Start: 88-00-2334Qiddupxuj encounterBenwali NorrisG [facility] ClinicStart: 03-26-2023 End: 08-20-5741sixhklcjsoMqjnuxmt Ball Other [employer] Other Start: 72-28-1102Osvueijfh encounterBenjamin BallFPG [facility] ClinicStart: 03-24-2023 End: 07-03-3855vihdriojmaJuijf Sue AndersonFacility:FTMCStart: 03-24-2023 End: 94-24-7484Pykmpky encounter procedureJordan Yuan [facility] Start: 03-21-2023 End: 38-38-8229voraephkbgCbkbzygx Ball Other [employer] Other Start: 73-75-5072Oanxkezml encounterBenjamin BallFPG [facility] ClinicStart: 01-12-2023 End: 00-35-2319gbyvjeqsvzQwhausgs Ball Other [employer] Other Start: 34-64-1496Qzesoxibm encounterBenjamin BallFPG [facility] ClinicStart: 01-10-2023 End: 12-76-8870xmezdlujraFrbffbzq Ball Other [employer] Other Start: 67-08-4878Rzvznd outpatient visit 15 minutes John BallFPG [facility] ClinicStart: 12-14-2022 End: 19-24-6949hjfizgldniZqdjrril Ball Other [employer] Other Start: 83-53-0376Xlckpbtmx encounterBenjamin BallFPG [facility] ClinicStart: 12-10-2022 End: 84-59-5404wywnqsaudnCjexwmjo Ball Other [employer] Other Start: 29-31-2357Yvwggqezi encounterBenjamin BallFPG [facility] ClinicStart: 12-09-2022 End: 39-47-0085hipjidqlkwKdggdtli Ball Other [employer] Other Start: 48-21-8718Sotgcz outpatient visit 15 minutes John BallFPG [facility] ClinicStart: 11-09-2022 End: 99-71-3572wckursznezTaislnqt Ball Other [employer] Other Start: 49-21-0691Waiagn outpatient visit 15 minutes John BallFPG [facility] ClinicStart: 42-62-3180qekpeqonxzOPGREXISVVLT LAKSHMIPATHY .Facility:O9Wupkl: 10-07-2022 End: 16-71-6838oqtsonlyfhQMDNPLYHSZLO LAKSHMIPATHY .Facility:R7Cyudh: 09-22-2022 End: 13-91-2996axeldthqsfDzdynzgv Ball Other [employer] Other Start: 23-70-8873Yyhycjpdk encounterBenjamin BallFPG [facility] ClinicStart: 09-16-2022 End: 48-44-7812eerdatrhinQL JOHN BALLFacility:G1Nnzmy: 08-14-2022 End: 83-70-3994xytmkgxvubFsfqdewl Ball Other [employer] Other Start: 70-09-1542Wiiicqjeq encounterBenjamin BallFPG [facility] ClinicStart: 07-26-2022 End: 27-24-2121pmsvkxgwopIbwlrfry Ball Other [employer] Other Start: 34-24-0035Hazbck outpatient visit 15 minutes John BallFPG [facility] ClinicStart: 63-29-2170Lylnkq wellness visit John Ashby Other [employer] Other Start: 41-08-2537Nrcwhto encounter procedureBenjamin Ball Other [employer] Other Start: 07-09-2022 End: 78-65-6919fpljwtbtupGI JOHN ASHBYFacility:S1Jftai: 06-24-3727Xjbhk health examinationBenjarosa Ashby Other [facility] Impraise Other Start: 36-55-8022Bwkyrrbkyouct examination normal John Ashby Other [facility] [employer] Other Start: 2022 End: 16-89-4722ercdogzreaES JOHN ASHBYFacility:X2Ohhkb: 06-01-2022 End: 80-49-9740uqbwnduwozFV JOHN ASHBYFacility:B3Mqvdc: 80-63-2330Fbrfzcfnt for general adult medical examination without abnormal findingsDR JOHN ASHBY [facility] [place], [place] Campustart: 05-20-2022 End: 45-38-4318ldxztxjkeaZE JOHN ASHBYFacility:E5Weulz: 05-20-2022 End: 94-92-8104Akpjirkjy for general adult medical examination without abnormal findingsDR JOHN ASHBYFacility:Z1Rmsoj: 05-20-2022 End: 11-27-4872ogzlupudxcJF JOHN ASHBYFacility:D9Nnbhx: 37-42-2205yaoooovpbh KATE BOESFacility:J5Whfoz: 02-17-2022 End: 35-41-8665wmkxxlrcpjSPJQ OLIVAS .Facility:U4Ovpzk: 02-16-2022 End: 06-99-1014povzeqtbymJE SO S AMOS .Facility:V9Uysnk: 02-02-2022 End: 83-43-7401pdusxpfvbtHD SO S AMOS .Facility:N2Hcfig: 12-24-2021 ambulatoryMELISSA BOESFacility:X3Gcpcr: 10-22-2021 End: 70-02-9038fpmkzhowyqYRNT OLIVAS .Facility:C5Oqrnb: 03-12-2020 End: 05-64-8802Xvzlhcc encounter procedureNABIL EBRAHEIMFacility:UTMCStart: 03-05-2020 End: 49-70-6994Ozsvooi encounter procedureNABIL EBRAHEIMFacility:UTMCStart: 10-20-2017 End: 35-51-6462KtlwmfanqrIWFreeman Heart Institutetart: 10-13-2017 End: 71-58-9705WjqwxjpnozAVLakeland Regional Hospital Procedures DateProcedureProcedure DetailPerforming ClinicianStart: 60-26-3178Mdifz shoulder complete minimum 2 viewsJason A Brown DO Work Phone: Start: 10-22-5883Njhvi X-ray of right shoulderBenjamin Ball DO Work Phone: Start: 22-57-6104Bsqqb X-ray of right shoulderBenjamin Ball DO Work Phone: Start: 98-43-9962Dndjl X-ray of left shoulderBenjamin Ball DO Work Phone: Start: 11-75-2740Zwzqeovwunzqtz aspir&/inj major jt/bursa w/usJason A Brown DO Work Phone: Start: 46-74-7931Vahor shoulder complete minimum 2 viewsJason A Brown DO Work Phone: Start: 55-16-1674Ucaarsjqcnc of shoulderJason Brown Start: 73-88-6237Hukoy shoulder complete minimum 2 viewsJason A Brown DO Work Phone: Start: 52-41-5887ZA UPPER EXTREMITY W/O CONTRAST RIGHT Jordan A Brown DO Work Phone: Start: 28-02-9625YEXH LAB MISCELLANEOUS-LCJason A Brown DO Work Phone: Start: 10-47-9778Lmjdi shoulder complete minimum 2 viewsJason A Brown DO Work Phone: Start: 95-43-5197Zvlbm shoulder replacementJason Kabbage Start: 63-94-3502OZNCJR KNEE AREA SURGERYCOLLEEN LANCZ Start: 51-22-5837EPC BONE 20 SQ CM/<MARYURI EBRAHEIMStart: 02-11-7891NGFAQNGIQ OF FIBULA FRACTURENABIL EBRAHEIMStart: 79-56-3941DPQWE OXIMETRY, CONTINUOUSBO BASIM Start: 93-57-1952SHLML OXIMETRY, CONTINUOUSBO YOOStart: 34-40-1625WHJZHPTHA PATIENTBO YOOStart: 94-58-0038DERVERZ STATUS (DIRECT)BARRY YOOStart: 10-21-2017 PULSE OXIMETRY, CONTINUOUSBO YOOStart: 79-63-2601GETKYTAK OXYGEN THERAPY PROTOCOLBO YOOStart: 14-38-0739GZDGA OXIMETRY, CONTINUOUSBO YOOStart: 10-21-2017 DIET CLEAR LIQUIDBO YOOStart: 34-69-3709QQXYP OXIMETRY, CONTINUOUSBO YOOStart: 39-55-4622GMKSB WEIGHTSBO YOOStart: 92-94-8454STWMFE AND OUTPUTBO YOOStart: 91-88-9563GAKIM OXIMETRY, CONTINUOUSBO YOOStart: 51-54-6658DZIGQ OXIMETRY, CONTINUOUSBO YOOStart: 60-42-8464CSMRD OXIMETRY, CONTINUOUSBO YOOStart: 66-82-0756DXPVL INTERMITTENT PNEUMATIC COMPRESSION DEVICEBO YOOStart: 10-20-2017 ACTIVITY TOLERATEDBO YOOStart: 87-34-5384BPWILYD DIET TOLERATED (NURSING COMMUNICATION)BARRY YOOStart: 52-48-8997SHJEYEEV PATIENTBO YOOStart: 10-20-2017 ELEVATE HOBBO YOOStart: 75-83-4511RQTA CODEBO YOOStart: 62-14-5367QLQUEHDN OXYGEN THERAPY PROTOCOLBO YOOStart: 20-42-2064ISBBJJ AND OUTPUTBO YOOStart: 41-57-5779DTFAV/VASCULAR CHECKSBO YOOStart: 86-87-2655RMSCRBV COMMUNICATIONBO YOOStart: 98-84-0964HUGPC CERVICAL COLLARBO YOOStart: 69-32-2318UAFZL OXIMETRY, CONTINUOUSBO YOOStart: 44-14-5147OGWQCNFIV MONITORINGBO YOOStart: 10-20-2017 TOBACCO CESSATION EDUCATIONBO YOOStart: 87-14-8374CQYXM SIGNSBO YOOStart: 66-56-3747CRPUALL STATUS (FROM ED OR OR/PROCEDURAL)BARRY YOOStart: 10-20-2017 TELEMETRY MONITORINGBO YOOStart: 43-20-8082RNVUML FOR SURGICAL PROCEDURESBO BASIM Start: 43-74-4644Hmxwkhnvkw pulse oximetryBO YOOStart: 49-46-0430HITEPPNGR DEEP BREATHING AND COUGHINGBO YOOStart: 53-07-6404FSOLK YOOStart: 52-21-5173LQDUK RT REFLEX TO CULTUREBO YOOStart: 11-18-5177DSLE AND SCREENBO YOOStart: 10-13-2017 APTTBO YOOStart: 44-17-5202MKZQA METABOLIC PANELBO YOOStart: 10-13-2017 PROTIME-INRBO YOOStart: 81-85-9845DIFF SCREENING CULTURE ONLYBO YOOStart: 02-21-8006JHB 12-LEADBO YOOStart: 84-56-0387Kicqhgf examination of patient John Ashby Other Amputation [...] shoulder replacement, right Expected: 05/13/2025 (Approximate), Expires: 05/13/2026NOKY HealthcareComment on above:Expected: 05/13/2025 (Approximate), Expires: 05/13/2026Start: 05-13-2025 End: 95-30-8621BWV W Auto Differential panel - BloodCBC auto differential Lab Routine Hx of total shoulder replacement, right Expected: 05/13/2025 (Appr oximate), Expires: 05/13/2026[facility] Work Phone: Comment on above:Expected: 05/13/2025 (Approximate), Expires: 05/13/2026Start: 05-13-2025 End: 41-51-6945Rxoqavwppct sedimentation rateSedimentation rate, automated Lab Routine Hx of total shoulder replacement, right Expected: 05/13/2025 (Approximate), Expires: 05/13/2026[facility] HealthcareComment on above:Expected: 05/13/2025 (Approximate), Expires: 05/13/2026Start: 05-13-2025 End: 67-32-2627Psvdqfjrvqw-6Interleukin-6 Lab Routine Hx of total shoulder replacement, right Expected: 05/13/2025 (Approximate), Expires: 05/13/2026[facility] HealthcareComment on above:Expected: 05/13/2025 (Approximate), Expires: 05/13/2026Start: 05-13-2025 End: 60-22-8948Xmmwptt encounter pgvelnrqv68/03/2025 10:30 AM EST Office Visit [facility] [address] [place] [phone] Jordan Yuan DO [address] [facility] [place] [address] [facility] OrthopaedicsStart: 03-14-2025 [facility] Work Phone: Start: 32-55-4455CVBPC-19 Vaccine ( season) COVID-19 Vaccine ( season)[facility] HealthcareStart: 05-15-5576Aswecynwi vaccinationNOKY HealthcareStart: 42-65-2381Qvhqq X-ray of left shoulderXR shoulder LT min 2V*[facility] Hospitaltart: 19-75-2478YI Shoulder - left ViewsMercy Health – The Jewish Hospitaltart: 10-04-2024 End: 31-27-6810Mdetmqz encounter ydyyipprg67/27/2025 2:45 PM EDT Office Visit [facility] [address] [place] [address] Brown, Jordan A, DO [address] [place] [address] [facility] NB ORTHOComment on above:ArrivedStart: 09-18-2024 End: 65-95-9054Fnhqsak encounter ybhkpplsh72/11/2025 10:00 AM EDT Office Visit [facility] [address] [place] [address] Jordan Yuan, DO [address] [place] [address] [facility] NB ORTHOStart: 07-17-2024 End: 55-69-7500Djnqrzk encounter blovqqrsx57/07/2025 2:45 PM EST Office Visit [facility] [address] [place] [address] Jordan Yuan, DO [address] [place] [address] [facility] NB ORTHOComment on above:ArrivedStart: 2024 Screening for malignant neoplasm of colonNOMS HealthcareStart: 06-05-2024 End: 34-67-3307Dswfpgh encounter yzmfguctd34/26/2024 9:15 AM EST Office Visit [facility] [address] [place] [address] Jordan Yuan, DO [address] [place] [address] [facility] NB ORTHOStart: 05-08-2024 End: 21-11-0898Rxuspdm encounter pzuwltojr14/29/2024 10:45 AM EDT Office Visit [facility] [address] [place] [address] Jordan Yuan, DO [address] [place] [address] [facility] NB ORTHOStart: 04-48-3689Dkhlhrnkw vaccinationInfluenza Vaccine (#1)[facility] HealthcareStart: 10-04-2023 End: 08-28-4000Kzdfapf encounter pdotdseqk66/26/2024 3:45 PM EDT Office Visit [facility] [address] [place] [phone] Jordan Yuan, DO [address] [place] [address] [facility] ORTHOStart: 08-18-2023 End: 87-44-0360Escrrvn encounter oczmoslcx85/08/2024 3:45 PM EST Office Visit [facility] [address] [place] [phone] Jordan Yuan, DO [address] [place] [address] [facility] ORTHOStart: 08-18-2023 End: 08-18-2024 reactive protein [Mass/volume] in Serum or PlasmaC-reactive protein Lab Routine Right shoulder pain, unspecified chronicity Expected: 08/18/2023 (Approximate), Expires: 08/18/2024[facility] HealthcareComment on above: Expected: 08/18/2023 (Approximate), Expires: 08/18/2024Start: 08-18-2023 End: 74-38-1236TBG W Auto Differential panel - BloodCBC auto differential Lab Routine Right shoulder pain, unspecified chronicity Expected: 08/18/2023 ( Approximate), Expires: 08/18/2024[facility] Work Phone: Comment on above:Expected: 08/18/2023 (Approximate), Expires: 08/18/2024Start: 08-18-2023 End: 26-17-6007Hodzbfshmyn sedimentation rateSedimentation rate, automated Lab Routine Right shoulder pain, unspecified chronicity Expected: 08/18/2023 (Approximate), Expires: 08/18/2024[facility] HealthcareComment on above:Expected: 08/18/2023 (Approximate), Expires: 08/18/2024Start: 08-18-2023 End: 66-17-1357Qtgqnafefwp-6Interleukin-6 Lab Routine Right shoulder pain, unspecified chronicity Expected: 08/18/2023 (Approximate), Expires: 08/18/2024 [facility] HealthcareComment on above:Expected: 08/18/2023 (Approximate), Expires: 08/18/2024Start: 89-74-4360Vutpmpsot for malignant neoplasm of breastMammogram [facility] HealthcareStart: 10-62-1531Kwztrtpju for malignant neoplasm of cervixNOMS HealthcareStart: 87-83-9984Memmysexr for malignant neoplasm of cervixPap Smear [facility] HealthcareStart: 10-69-2252Zhrtzsmtb for malignant neoplasm of colonNOMS HealthcareComprehensive metabolic 1999 panel - Serum or [facility] HospitalPatient EducationShoulder [facility] Work Phone: [facility] referralT[facility] City Hospital Work Phone: Renal function 1999 panel - Serum or [facility] HospitalUS Heart TransthoracicMadison HealthUS Kidney - bilateralMadison HealthXR Chest 2 ViewsMiller [facility] Hospital Immunizations Immunization DateImmunizationNotesCare EkecgshwMsjrzvye55-16-3071jijinvegs virus vaccine, unspecified formulationJordan Yuan DO Work Phone: [facility] Wal[facility] LawnBrtkaxrypr63-20-4452nfvdbje and diphtheria toxoids, adsorbed, preservative free, for adult use (5 Lf of tetanus toxoid and 2 Lf of diphtheria toxoid)John Ashby Other [facility] Payers DatePayer CategoryPayerPolicy [id number] Health [id number] (Managed Care) [id number] [id number] 37-97-9600Haltewv Health Fnsjxdwia19-07-9150Qndc Cross Blue Shield 1.2.840.539326.1.13.693.2.7.9.694358.006033.95614-10-3333Bxyblkz 1.2.840.571613.1.13.693.2.7.3.194270.63343-34-3635Gdxn Jackman Blue Shield [id number] 2.16.840.7.727264.972819 2020Medicare 1.2.840.060189.1.13.693.2.7.3.083[id number] [id number] 2.16.840.1.158393.3.579.2.4[id number] 2.16.840.1.974747.3.579.2.77175-96-3037Fvvjqcq3144919 2.16.840.1.292838.3.579.2.58354-81-2035Dccwydv0249026 2.16.840.1.525029.3.579.2.36384-38-1202Senudgb1805536 2.16.840.1.862044.3.579.2.08541-87-8050Ssbxwqg9301049 2.16.840.1.765837.3.579.2.38652-77-1011Zhuawqg3690246 2.16.840.1.810043.3.579.2.50720-42-4208Jzglrhz2584025 2.16.840.1.746456.3.579.2.36837-08-1674Zldecpk2157061 2.16.840.1.347022.3.579.2.07244-91-7280Ezncxpm6239473 2.16.840.1.314580.3.579.2.29860-33-9609Hfpfntl0398739 2.16.840.1.916775.3.579.2.01749-21-2499Tniptzp1191795 2.16.840.1.547008.3.579.2.09570-35-1390Acsyfah5421645 2.16.840.1.856551.3.579.2.77180-49-8023Bbwgdxc2522923 2.16.840.1.292212.3.579.2.15318-84-4944Ojctngp8687114 2.16.840.1.000895.3.579.2.69011-23-1407Lsxpkuf3887739 2.16.840.1.721062.3.579.2.97385-31-6797Hqphazf1350493 2.16.840.1.434664.3.579.2.14664-14-4227Bjexkeu4962601 2.16.840.1.675753.3.579.2.56794-90-1837Gowsvwo6033047 2.16.840.1.496389.3.579.2.96060-12-9938Zlgzkdp54453028 2.16.840.1.297426.3.579.2.17236-86-9503Pvrhfed21778485 2.16.840.1.003488.3.579.2.99010-83-2482Nouyaaf56474901 2.16.840.1.193745.3.579.2.53245-96-6010Rhrazdz37578559 2.16.840.1.272148.3.579.2.01671-31-5598Amcfdfi55863089 2.16.840.1.464993.3.579.2.96792-29-8979Jnbkkqi31044023 2.16.840.1.827862.3.579.2.80959-14-0984Yuqerne10640737 2.16.840.1.253802.3.579.2.70613-02-2624Iomlakn666499516 2.16.840.1.420941.3.579.2.84160-86-3793Avhayjg826407167 2.16.840.1.974403.3.579.2.68698-56-2502Yraaful609639037 2.16.840.1.807179.3.579.2.09193-88-0416Tnidzxc543980555 2.16.840.1.921290.3.579.2.36120-10-5605Cvanzni02674988 2.16.840.1.123481.3.579.2.556857-64-2987Aurslus66463342 2.16.840.1.075063.3.579.2.938069-89-4284Rkbdcdk44484933 2.16.840.1.276152.3.579.2.526406-06-5499Lmzgtob4865097 2.16.840.1.863248.3.579.2.387526-05-0773Xhmcnvu5721442 2.16.840.1.497076.3.579.2.455611-75-6754Wqnhlcv7195978 2.16.840.1.673760.3.579.2.574216-14-1529Smsqutx3082727 2.16.840.1.632194.3.579.2.1259 [id number] 1960Self-pay [id number]-8535AbsgawkVYRLF0731195Vsqxnux96437987 .16.840.1.807182.3.579.2.060Nmrojmk89230661 .16.840.1.741675.3.579.2.531 Social History DateTypeDetailFacilityUnknown if ever smokedNofreeman heart institute Impraise Other Start: 07-21-2023 End: 61-15-7690Xso [facility]igned At [facility] NorthTobacco smoking statusNo Smoking Status [facility]: 05-24-2023 End: 57-80-3043Seiegep smoking status NHISEx-smokerNOMS HealthcareStart: 04-10-1981 End: 07-95-9055Xicbjch of tobacco useCurrent smokerNOMS HealthcareStart: 04-10-1981 End: 31-36-0907Xpgxkzv of tobacco useCigarette SmokerNOMS HealthcareStart: 05-24-2023 End: 45-97-1013Bmvejsh use and exposureSmokeless tobacco non-userNOMS Healthcare Start: 07-21-2023 End: 99-83-5748Cokldbm intakeCurrent drinker of alcohol (finding)[facility] Start: 07-21-2023 End: 44-44-1495Bstwqde of Social functionNOMS HealthcareHow often to you have a drink containing alcohol?Monthly or lessNOMS HealthcareHow many standard drinks containing alcohol do you have on a typical day?1 or 2NOMS HealthcareHow often do you have 6 or more drinks on 1 occasion?WeeklyNOMS HealthcareStart: 06-35-3150Qteitlg Commentcaffiene 1-2 cups dailyNOMS HealthcareStart: 1960 Sex Assigned At BirthNot on fileOGDEN REGIONAL [facility]ENTER HealthcareStart: 82-07-6524Uyd Assigned At [facility] Hospitaltart: 35-49-7346Gwktuhu Number of DrinksNot on fileOGDEN REGIONAL MEDICAL CENTER HealthcareStart: 08-29-2024 End: 46-87-4608CxjSxsjts (finding)[facility] Medical Equipment Procedure CodeEquipment CodeEquipment Original TextEquipment IdentifierDates SHOULDER TOTAL ARTHROPLASTY Jordan Yuan DO 04/06/23 Unknown Shoulder RFDA Start: 16-63-9453PGHJAKFT TOTAL ARTHROPLASTY Jordan Yuan DO 04/06/23 Unknown Shoulder RFDAStart: 68-93-7637PTIFFEEW TOTAL ARTHROPLASTY Jordan Yuan DO 04/06/23 Unknown Shoulder RFDAStart: 39-48-4499XTLJOVNY TOTAL ARTHROPLASTY Jordan Yuan DO 04/06/23 Unknown Shoulder RFDAStart: 47-34-8513JYOWRGLF TOTAL ARTHROPLASTY Jordan Yuan DO 04/06/23 Unknown Shoulder RFDAStart: 04-06-2023 SHOULDER TOTAL ARTHROPLASTY Jordan uYan DO 04/06/23 Unknown Shoulder RFDA Start: 54-68-1167ERVEIAXX TOTAL ARTHROPLASTY Jordan Yuan DO 04/06/23 Unknown Shoulder RFDAStart: 19-37-2946NBGRDEKG TOTAL ARTHROPLASTY Jordan Yuan DO 04/06/23 Unknown Shoulder RFDAStart: 72-76-9286CQWDTENL TOTAL ARTHROPLASTY Jordan Yuan DO 04/06/23 Unknown Shoulder RFDAStart: 98-12-2472YHOVYQOM TOTAL ARTHROPLASTY Jordan Yuan DO 04/06/23 Unknown Shoulder RFDAStart: 04-06-2023 SHOULDER TOTAL ARTHROPLASTY Jordan Yuan DO 04/06/23 Unknown Shoulder RFDA Start: 05-37-9242IDEXUWLP TOTAL ARTHROPLASTY Jordan Yuan DO 04/06/23 Unknown Shoulder RFDAStart: 25-43-9932IWFDMRPM TOTAL ARTHROPLASTY Jordan Yuan DO 04/06/23 Unknown Shoulder RFDAStart: 67-31-3144HEQONAEO TOTAL ARTHROPLASTY Jordan Yuan DO 04/06/23 Unknown Shoulder RFDAStart: 01-06-0206ZMANYMOK TOTAL ARTHROPLASTY Jordan Yuan DO 04/06/23 Unknown Shoulder RFDAStart: 04-06-2023 SHOULDER TOTAL ARTHROPLASTY Jordan Yuan DO 04/06/23 Unknown Shoulder RFDA Start: 70-58-7324HGIJZYJU TOTAL ARTHROPLASTY Jordan Yuan DO 04/06/23 Unknown Shoulder RFDAStart: 70-99-4298BGLZYAGK TOTAL ARTHROPLASTY Jordan Yuan DO 04/06/23 Unknown Shoulder RFDAStart: 19-24-6816LICAQDSP TOTAL ARTHROPLASTY Jordan Yuan DO 04/06/23 Unknown Shoulder RFDAStart: 09-15-5750VNCPVVBU TOTAL ARTHROPLASTY Jordan Yuan DO 04/06/23 Unknown Shoulder RFDAStart: 04-06-2023 SHOULDER TOTAL ARTHROPLASTY Jordan Yuan DO 04/06/23 Unknown Shoulder RFDA Start: 31-60-7753DIXGZYUX TOTAL ARTHROPLASTY Jordan Yuan DO 04/06/23 Unknown Shoulder RFDAStart: 33-71-2187JOSFTSBK TOTAL ARTHROPLASTY Jordan Yuan DO 04/06/23 Unknown Shoulder RFDAStart: 29-72-6227JBJYSWHF TOTAL ARTHROPLASTY Jordan Yuan DO 04/06/23 Unknown Shoulder RFDAStart: 47-36-7198HDORJYTK TOTAL ARTHROPLASTY Jordan Yuan DO 04/06/23 Unknown Shoulder RFDAStart: 04-06-2023 SHOULDER TOTAL ARTHROPLASTY Jordan Yuan DO 04/06/23 Unknown Shoulder RFDA Start: 65-40-6133RHSFEZUA TOTAL ARTHROPLASTY Jordan Yuan DO 04/06/23 Unknown Shoulder RFDAStart: 76-73-1922CYRFHKVT TOTAL ARTHROPLASTY Jordan Yuan DO 04/06/23 Unknown Shoulder RFDAStart: 36-29-3528DXTIYIDY TOTAL ARTHROPLASTY Jordan Yuan DO 04/06/23 Unknown Shoulder RFDAStart: 87-15-7413KQRHOCGS TOTAL ARTHROPLASTY Jordan Yuan DO 04/06/23 Unknown Shoulder RFDAStart: 04-06-2023 SHOULDER TOTAL ARTHROPLASTY Jordan Yuan DO 04/06/23 Unknown Shoulder RFDA Start: 39-67-9270PLMXOKXA TOTAL ARTHROPLASTY Jordan Yuan DO 04/06/23 Unknown Shoulder RFDAStart: 00-37-0913KIEHQWVC TOTAL ARTHROPLASTY Jordan Yuan DO 04/06/23 Unknown Shoulder RFDAStart: 02-24-3147MUPGYGWG TOTAL ARTHROPLASTY Jordan Yuan DO 04/06/23 Unknown Shoulder RFDAStart: 61-53-0880FPDBSVEE TOTAL ARTHROPLASTY Jordan Yuan DO 04/06/23 Unknown Shoulder RFDAStart: 04-06-2023 SHOULDER TOTAL ARTHROPLASTY Jordan Yuan DO 04/06/23 Unknown Shoulder RFDA Start: 63-80-6332EVRBNVRN ARTHROSCOPY W/ POSSIBLE REPAIR Jordan Yuan DO 04/27/24 Non Biological Shoulder L{01}[id number]{17}[id number]{10}[id number] [facility] Start: 04-27-2024 Functional Status CnsdLvoyfdywlbRfsqbsIgdbrjzo28-18-3164Gjrbjjnfhg StatusLima City Hospital09-14-2023Functional StatusSelect [facility] Notes 05-29-2018 to 05-13-2025 Note Date & LyxsZoaiHcnatpin70-19-5579 History of Present illness Narrative* Jordan Yuan DO - 05/13/2025 10:30 AM EST Images from the original note were not included. @N4MDTE@ [employer] DIG[employer] Levy Zaidi is a 64 y.o. female [...] tablet citalopram (CeleXA) 10 MG tablet HYDROcodone-acetaminophen ([place]) 5-325 MG tablet leflunomide (Arava) 10 MG [...] note was created using voice recognition through [employer] artificial Context Relevant. [1] Allergies Allergen Reactions Cephalexin GI intolerance [...] daily Drug use: Never documented in this encounterCox Walnut LawnUrpwdrbixa90-32-9438 Chief complaint+Reason for visit Narrative* Chief Complaint Admit Date Itchy w/ no Rash March 06, 2025 9: 17am Referral Order March 14, 2025 9:00pm Reason for Visit Admit Date Chronic kidney disease March 06, 2025 9:17am Heart failure with improved ejection fra ction (HFimpEF) March 06, 2025 9:17am Nonischemic cardiomyopathy March 06, 2025 9:17am Pruritus March 06, 2025 9: 17am [facility] Work Phone: 1(795) 676-612608-27-2025 Chief complaint+Reason for visit Narrative * Chief [...] 9:17am Pruritus March 06, 2025 9: 17am [facility] Work Phone: 1(614) 293-592608-27-2025 Evaluation note* Diagnosis Onset Date Resolution Status Admit Date Chronic kidney disease acuteAugust 2024 9:17amHeart failure with improved ejection fraction (HFimpEF)acuteAugust 2024 9:17amNonischemic cardiomyopathyacuteAugust 2024 9:17amPruritusacuteAugust 2024 9:17am [facility] Work Phone: 1(895) 573-332006-02-2025 NoteUT Cardiology - [facility] Subjective Radha Zaidi is [...] the past she was admitted to [facility] with pneumonia and empyema, underwent chest [...] mouth if needed., Disp: , Rfl: HYDROcodone-acetaminophen ([place]) 5-325 mg tablet, TAKE 1 TABLET BY [...] [address] feliz (more content not included)...[facility]03-27-2025 History of Present illness Narrative* Jordan Yuan, [...] tablet citalopram (CeleXA) 10 MG tablet HYDROcodone-acetaminophen ([place]) 5-325 MG tablet leflunomide (Arava) 10 MG [...] Results Imaging MRI of the left shoulder [facility] 09/28/2024 report and [...] about this procedure. We will utilize the PersonSpotnier shoulder arthroplasty platform and obtain a CT [...] note was created using voice recognition through [employer] artificial Context Relevant. documented in this encounterCox Walnut LawnKksgkvmudp46-85-0947 History of Present illness Narrative* Jordan Yuan DO - 09/18/2024 10:00 AM EDT Images from the original note were not included. @LORAINE@ [employer] Levy Zaidi is a 64 y.o. female [...] tablet citalopram (CeleXA) 10 MG tablet HYDROcodone-acetaminophen ([place]) 5-325 MG tablet leflunomide (Arava) 10 MG [...] note was created using voice recognition through [employer] artificial intelligence. documented in this encounterCox Walnut LawnRtzqrnnttr18-62-3000 Evaluation note* Diagnosis Onset Date Resolution Status Admit Date Chronic kidney disease acuteFebruary 2024 3:15pmEssential hypertensionacuteFebruary 2024 3:15pmHeart failure with improved ejection fraction (HFimpEF)acuteFebruary 2024 3:15pmNonischemic cardiomyopathyacuteFebruary 2024 3:15pmPernicious anemiaacuteFebruary 2024 3:15pmPSVT (paroxysmal supraventricular tachycardia)acuteFebruary 2024 3:15pmScreening mammogram for breast cancer acuteFebruary 2024 3:15pmWellness examinationacuteFebruary 2024 3:15pmEncounter for screening for malignant neoplasm of colonnoneactiveFebruary 2024 3:15pmAnemia of renal diseaseacuteCo[facility] 20[facility] 10:33amChronic kidney disease, stage 3bacuteMar 2024 10:33amHypertensive nephropathy [facility]Way[facility] 20[facility] 10:33amRheumatoid arthritisacuteCo[facility] Hospitalch 2024 10:33am [facility] Work Phone: 1(644) 214-944702-19-2025 Evaluation note* Diagnosis Onset Date Resolution Status Admit Date Chronic kidney disease acuteFebruary 2024 3:15pmEssential hypertensionacuteFebruary 2024 3:15pmHeart failure with improved ejection fraction (HFimpEF)acuteFebruary 2024 3:15pmNonischemic cardiomyopathyacuteFebruary 2024 3:15pmPernicious anemiaacuteFebruary 2024 3:15pmPSVT (paroxysmal supraventricular tachycardia)acuteFebruary 2024 3:15pmScreening mammogram for breast cancer acuteFebruary 2024 3:15pmWellness examinationacuteFebruary 2024 3:15pmEncounter for screening for malignant neoplasm of colonnoneactiveFebruary 2024 3:15pmAnemia of renal diseaseacuteWay[facility] Hospital 2024 10:33amChronic kidney disease, stage 3bacuteWay[facility] Hospital 2024 10:33amHypertensive nephropathy acuteWay[facility] 2024 10:33amRheumatoid arthritisacuteWayne Hospital 2024 10:33am Left rotator cuff tearacuteApril 2024 1:35pmPrimary osteoarthritis, left shoulderacuteApril 2024 1:35pm [facility] Work Phone: 1(213) 717-943001-07-2025 History of Present illness Narrative* Jordan Yuan, - 07/17/2024 2:45 PM EST Images from the original note were not included. @ENCDATE@ SCON[employer] DIGITALE Levy Dyan is a 64 y.o. female [...] tablet citalopram (CeleXA) 10 MG tablet HYDROcodone-acetaminophen ([place]) 5-325 MG tablet leflunomide (Arava) 10 MG [...] note was created using voice recognition through appweevr. documented in this encounterCox Walnut [id number] Evaluation note* Diagnosis Onset Date Resolution Status Admit Date Pernicious anemia acuteDecember 2023 3:25pmChronic kidney diseaseacuteFebruary 2024 3:15pmElevated transaminase levelacuteFebruary 2024 3:15pmEssential hypertensionacuteFebruary 2024 3:15pmHeart failure with improved ejection fraction (HFimpEF)acuteFebruary 2024 3:15pmNonischemic cardiomyopathyacute February 2024 3:15pmPernicious anemiaacuteFebruary 2024 3:15pmPSVT (paroxysmal supraventricular tachycardia)acuteFebruary 2024 3:15pm Screening mammogram for breast canceracuteFebruary 2024 3:15pmWellness examinationacuteFebruary 2024 3:15pm [facility] Work Phone: 1(610) 624-410411-26-2024 History of Present illness Narrative* Jordan Yuan [...] tablet citalopram (CeleXA) 10 MG tablet HYDROcodone-acetaminophen ([place]) 5-325 MG tablet TAKE 1 TABLET BY [...] with debridement Patient will start PT at [place]. [place] protocol for small to medium cuff tears will be utilized. Follow up in 6 weeks. Continue to ice the shoulder and allow sufficient time for rest during the week. There are no diagnoses linked to this encounter. Jordan Yuan D.O. Attestation This note was created using voice recognition through [employer] artificial Context Relevant. * ROSEMARY Hernandez - 06/05/2024 9:15 AM ESTAssociated Order(s): L Inj/Asp: L glenohumeral Post-Procedure Diagnose(s): Status post shoulder surgery L Inj/Asp: L glenohumeral on 06/05/2024 2:26 PM Indications: pain Details: 25 G needle, ultrasound-guided Medications: 2 mL betamethasone acetate-betamethasone sodium phosphate 6 (3-3) MG/ML Consent was given by the patient. documented in this encounterCox Walnut [id number] History of Present illness Narrative* Jordan Yuan DO - 05/08/2024 10:45 AM EDT Images from the original note were not included. @CARIDADLUIS MANUELISATU@ [employer] Levy Zaidi is a 63 y.o. female [...] tablet citalopram (CeleXA) 10 MG tablet HYDROcodone-acetaminophen ([place]) 5-325 MG tablet TAKE 1 TABLET BY MOUTH 3 TIMES A DAY NEEDED FOR PAIN*MUS LAST 30 DAYS HYDROcodone-acetaminophen ([place]) 5-325 MG tablet 1-2 tablets, Oral, Every [...] for her medication will be sent to [facility] in [place]. Follow-up Return in 4 weeks for follow up. PT will be initiated at that time. Diagnoses and all orders for this visit: Status post shoulder surgery - XR shoulder 2+ views left - HYDROcodone-acetaminophen ([place]) 5-325 MG tablet; Take 1-2 tablets by mouth every 4 (four) hoursif needed (pain) for up to 7 days Jordan Yuan D.O. Attestation This note was created using voice recognition through [employer]. 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 Family History: Primary malignant neoplasm of prostate Father Acute myocardial infarction Mother Procedure history: Total shoulder replacement (64877554) on 04/06/2023 at 62 Years. Cervical laminectomy (0116099936). Amputation of finger (294810682). Removal of lung, Partial (84247). Open reduction and internal fixation of fracture Leg (238979311). Foot surgery (3396665327). Lumbar discectomy (804861981). Social History Social & Psychosocial Habits Alcohol [...] Signs (last 24 hrs) Last Charted Temp Gsocbksn40.5 DegC (APR 27:22) Heart Rate Nmytawumb05 bpm (APR 27:23) IMG511 mmHg (APR 27:23) DBP70 mmHg (APR 27:23) [...] Auto 55.1 % Lymph Auto 20.4 % [place] Auto 19.5 % HI Eos Auto 3.7 % Basophil Auto 1.3 % Neutro Absolute 2.4 E9/L Lymph Absolute 0.9 E9/L LOW [place] Absolute 0.8 E9/L Eos Absolute 0.2 E9/L Basophil Absolute 0.1 E9/L . Plan [place] [employer] of Anesthesiologists (ASA) physical status classification: Class III. Anesthetic Preoperative Plan: Anesthesia General. Regional Interscalene block.Addendum by Wm Bajwa MD on April 27, 2024 8:55 [facility] 10-18-2024 Hospital Discharge instructions Patient Education 04/27/2024 10:08:37 Shoulder Cryocuff Patient Instructions - FT (CUSTOM) 04/27/2024 10:08:34 Post Op Patient Instructions - FT (CUSTOM) 04/27/2024 07:48:25 Iris Yuan - After Your Shoulder Arthroscopy (Custom) [place], [place] [facility] AFTER YOUR SHOULDER ARTHROSCOPY [...] your appointment. Jordan Yuan, DO [facility] [address] [place] [id number] Reviewed: Follow Up Care 02/23/2024 15:25:37 With:Jordan Yuan Address: [address] [place] [address]- Business (1) When:05/08/2024 10:45:00 Comments:Call for any problems.Keep scheduled appointmentAppointment has already been scheduled [facility] 10-18-2024 NoteProgress Note-Physician Patient: RADHA ZAIDI Age: 63 years Sex: Female : 1960 Associated Diagnoses: None Author: Wm Bajwa MD Postoperative Information Postoperative disposition: Postoperative disposition: To PACU. Optimetrix number: Optimetrix number [id number]. Anesthetic utilized: General. Regional: Interscalene Block. Health [...] Discharge when meets criteria ( To home ).[facility] HospitalComment on above:Result Comment: Electronically Signed By: Wm Bajwa MD\.br\Date and Time Signed: 04/27/24 10:30 EDT 04-27-2024 NotePatient Education - Text [place], [place] [facility] AFTER YOUR SHOULDER ARTHROSCOPY [...] your appointment. 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 Family History: Primary malignant neoplasm of prostate Father Acute myocardial infarction Mother Procedure history: Total shoulder replacement (77248373) on 04/06/2023 at 62 Years. Cervical laminectomy (8018489126). Amputation of finger (860083025). Removal of lung, Partial (93812). Open reduction and internal fixation of fracture Leg (551103936). Foot surgery (8404304059). Lumbar discectomy (258893958). Social History Social & Psychosocial H (more content not included)...[facility] HospitalComment on above:Result Comment: Electronically Signed By: Garett CHAUHAN, Wm Mistry\.br\Date and Time Signed: 04/27/24 08:55 [id number] History of Present illness Narrative* Jordan Yuan, - 11/15/2023 3:45 PM EDT Images from the original note were not included. @ENCDATE@ [employer] Levy Zaidi is a 63 y.o. female [...] tablet citalopram (CeleXA) 10 MG tablet HYDROcodone-acetaminophen ([place]) 5-325 MG tablet TAKE 1 TABLET BY [...] Jordan Yuan D.O. 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 She points to the anterior aspect of the shoulder as the locationof her discomfort. SUBJECTIVE: MEDICATIONS: Current Outpatient Medications Medication Instructions aspirin 81 MG EC tablet 1 tablet, Oral, Daily buPROPion XL (Wellbutrin XL) 300 MG 24 hr tablet citalopram (CeleXA) 10 MG tablet HYDROcodone-acetaminophen ([place]) 5-325 MG tablet TAKE 1 TABLET BY [...] care. Jordan Yuan D.O. documented in this encounterCox Walnut LawnRdaoqbdhxh22-51-5409 Evaluation note* Encounter Date Diagnosis Assessment Notes [...] Z87.39)Symptoms tolerable, continue medical treatment f/u Rheumatology [facility] Other 12-19-2023 Evaluation note* Encounter Date Diagnosis [...] prolonged illness. Jun,Immunosuppressed status (ICD-10 - D84.9) [facility] Other 09-28-2023 Evaluation + Plan noteExtracted from:Title: [...] from:Title:Fredi Basic PREAuthor:Yanick Rai DODate: 04/06/23 Plan [place] [employer] Anesthesiologists (ASA) physical status classification: Class II. Anesthetic Preoperative Plan: Anesthesia General. Regional Interscalene block.[facility]09-28-2023 Hospital Discharge instructions Patient Education 04/07/2023 07:41:33 Iris Yuan - Shoulder Replacement (Custom) [place], [place] [facility] DISCHARGE INSTRUCTIONS: SHOULDER REPLACEMENT [...] persistent vomiting. Jordan Yuan, DO [facility] [address] [place] [address] Reviewed: Follow Up Care 03/09/2023 13:56:15 With:Jordan Yuan Address: [address] [place] [address]- Business (1) When:04/19/2023 14:15:00 With:JOHN SYMONE Address: [facility] [place] [address]- Business (1) When: Unknown [facility]09-28-2023 NotePatient: RADHA ZAIDI Age: 62 years Sex: [...] 15 mg, 1 tab(s), Oral, Daily, 0 Refill(s)[facility] HospitalComment on above:Result Comment: Electronically Signed By: Jordan Yuan DO\.br\Date and Time Signed: 04/07/23 07:42 [id number] [id number]:127 [facility]09-16-2023 Evaluation note* Encounter Date Diagnosis Assessment Notes Treatment Notes Treatment Clinical Notes Mar, Major depressive dis order, single episode, 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 Suggested referral to [facility] Other 05-02-2023 Evaluation note* Encounter Date Diagnosis [...] normal BMI. Monitor BP while taking Adipex [facility] Other 03-30-2023 NoteCONSULTATION PROCEDURE DATE: 10/07/2022 PROCEDURE: [...] at least 80% reduction of pain symptoms.[facility] HospitalPigbmiou15-93-3715 NoteCONSULTATION CONSULTATION DATE: 10/07/2022 ADDENDUM: On examination of the right shoulder, the patient did have a positive right sided full can test, a positive Neida's test, Apley's test and cross body test. All four positive on examination date 10/07/2022.[facility] HospitalGtsbozae41-31-4962 NoteCONSULTATION CONSULTATION DATE: 10/07/2022 TO: John Ashby [...] activity modification, use of Zanaflex, Lyrica and [place]. RECOMMENDATIONS: I recommend proceeding with a right [...] right shoulder without contrast and physical therapy.[facility] HospitalXgfbkcil82-01-9239 Evaluation note* Encounter Date Diagnosis Assessment Notes Treatment Notes Treatment Clinical Notes Aug, Anemia (ICD-10 - D64.9) [facility] Other 01-16-2023 Evaluation note* Encounter Date Diagnosis [...] F41.1)Healthy diet, exercise w/o change in treatment [facility] Other 12-30-2022 NoteCONSULTATION PROCEDURE DATE: 07/09/2022 PREOPERATIVE [...] will be followed up in the office.[facility] HospitalMphgkdlx57-45-0309 NoteCONSULTATION CONSULTATION DATE: 07/09/2022 HISTORY OF PRESENT [...] possible increase in dose. She also takes [place] 5/325 t.i.d. and Zanaflex 4 mg three [...] three months' time, unless otherwise indicated. [facility] HospitalRbmbfakd28-70-0527 NoteCONSULTATION CONSULTATION DATE: 05/20/2022 HISTORY OF PRESENT [...] medications include Celexa, Lyrica 50 mg b.i.d., [place] 5/325 t.i.d. and Zanaflex. Patient is having [...] level of C3-4. We will refill her [place] at 5/325 t.i.d. Supportive home measures were discussed such as heat and a menthol heat rub, as well as vitamin compliance. The patient agrees to move forward with the plan, will be followed up in the clinic thereafter.[facility] HospitalOuazqdxt06-29-5877 NoteCONSULTATION PROCEDURE DATE: 02/17/2022 PRE AND POSTOPERATIVE [...] will be followed up in the clinic.[facility] HospitalNndgakqf20-74-6697 NotePROCEDURE: XR SHOULDER RT 2V or > COMPARISON: None. HISTORY: Pain of right shoulder joint FINDINGS: BONES:No acute fracture or dislocation. Minimal degenerative changes. Cervical fusion hardware SOFT TISSUES:Negative. No visible soft tissue swelling. EFFUSION:None visible. OTHER: Negative. IMPRESSION: No acute abnormality Electronically authenticated by: VANDANA COLLINS Date: 2022-02-16 19:11[facility] HospitalOvtnklfo89-16-8096 NoteCONSULTATION CONSULTATION DATE: 02/02/2022 CHIEF COMPLAINT: Right [...] aggravates the pain. The patient currently takes [place] 5/325 t.i.d., wellbutrin 150 mg, Lyrica 50 [...] point tenderness along the right bicipital tendon. 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 IMPRESSION: Current working diagnosis [...] like to proceed. 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 Cold weather and bending bother her as well. Medications include Lyrica 75 mg t.i.d., which she has not been taking for the past two months; Celexa, [place] 5/325 t.i.d., Zanaflex and RINVOQ. She feels that her pain is managed well with her [place], but is concerned about the neuropathic pain [...] in need of a refill for her [place] today, which we will give 5/325 t.i.d. [...] in three months' time unless otherwise indicated. [facility] Signed and Approved by: JACQUIE OLIVAS . 11/12/2021 16:27:00[facility]11-19-2018 Evaluation note* Diagnosis Onset Date Resolution Status PSVT (paroxysmal supraventricular tachyc ardia) acuteHeart failure with improved ejection fraction (HFimpEF)acuteNonischemic cardiomyopathyacuteOrthostatic hypotensionMay 29, 2018acuteAnemiaacute Essential hypertensionacuteGAD (generalized anxiety disorder)acuteHeart failure with improved ejection fraction (HFimpEF)acuteNonischemic cardiomyopathyacute Preop exam for internal medicineacutePSVT (paroxysmal supraventricular tachycardia)[facility] Work Phone: [phone] 396-851511-19-2018 Evaluation note* Diagnosis Onset Date Resolution Status Heart failure with improved ejection fra ction (HFimpEF) acuteNonischemic cardiomyopathyacuteOrthostatic hypotensionMay 29, 2018 acuteAnemiaacuteEssential hypertensionacuteGAD (generalized anxiety disorder) acuteHeart failure with improved ejection fraction (HFimpEF)acuteNonischemic cardiomyopathyacutePreop exam for internal medicineacutePSVT (paroxysmal supraventricular tachycardia)acuteRheumatoid arthritisHolzer Health System Work Phone: Evaluation + Plan note Future Appointments Appointment Date:04/06/2023 09:30:00 AM Scheduled Provider: Location:[facility] Appointment Type:[facility]gery FT [facility] Plan note Future Appointments Appointment Date:04/06/2024 12:00:00 PM Scheduled Provider: Location:[facility] Appointment Type:Surgery FT [facility] Evaluation noteNo InformationNoAllegheny Health Network [facility] Other Evaluation note* Diagnosis Right shoulder pain, unspecified chronicity- Primary documented in this encounter [facility] HealthcareEvaluation note* Diagnosis Onset Date Resolution Status Hypertension acuteOverweightacutePSVT (paroxysmal supraventricular tachycardia)[facility] Work Phone: Evaluation note* Diagnosis Onset Date Resolution Status Hypertension acuteOverweightacutePSVT (paroxysmal supraventricular tachycardia)acuteHeart failure with improved ejection fraction (HFimpEF)acuteNonischemic cardiomyopathy [facility] Work Phone: Evaluation note* Diagnosis Status post shoulder surgery- Primary Other postprocedural status documented in this encounter [facility] HealthcareEvaluation note* Diagnosis Onset Date Resolution Status Heart failure with improved ejection fra ction (HFimpEF) acuteNonischemic cardiomyopathyacuteEssential hypertensionacuteGAD (generalized anxiety disorder)acuteHeart failure with improved ejection fraction (HFimpEF) acuteNonischemic cardiomyopathyacutePreop exam for internal medicineacutePSVT (paroxysmal supraventricular tachycardia)acuteRheumatoid arthritisacuteEssential hypertensionacuteHigh risk medication useacuteNonischemic cardiomyopathyacute Pernicious anemiaacutePSVT (paroxysmal supraventricular tachycardia)[facility] Work Phone: Evaluation note* Diagnosis Status post shoulder surgery- Primary Other postprocedural status documented in this encounter [facility] HealthcareEvaluation note* Diagnosis Status post shoulder surgery- Primary Other postprocedural status documented in this encounter [facility] HealthcareEvaluation note* Diagnosis S/P arthroscopy of left shoulder- Primary documented in this encounter [facility] HealthcareEvaluation note* Diagnosis S/P arthroscopy of left shoulder- Primary documented in this encounter [facility] HealthcareEvaluation note* Diagnosis Complete tear of left rotator cuff, unspecified whether traumatic- Primary documented in this encounter [facility] HealthcareEvaluation noteNo assessment information availableTwin City Hospital Work Phone: Evaluation note* Diagnosis Hx [...] Thumb fusedSurgical HistoryRight Index FingerSurgical HistoryRight Shoulder Vulfjekmglr28/2014Surgical HistoryRight Foot x 2Surgical HistoryLumbar Spine x 2Surgical HistoryCervical Spine x 2 Surgical HistoryHysterectomySurgical Historyrevision of external fixation device in L fibula, open approachSurgical Historytonsillectomy and adenoidectomy Surgical HistoryORIF, proximal fibulaSurgical JxoddlqUSU9100Ygdparwg History Lumbar ayiwct0123/1992Surgical HistoryACDF C4-611/20Hospitalization HistorySee Above [facility] Other History general Narrative - Reported* Type [...] Thumb fusedSurgical HistoryRight Index FingerSurgical HistoryRight Shoulder Uypwkbyiamb43/2014Surgical HistoryRight Foot x 2Surgical HistoryLumbar Spine x 2Surgical HistoryCervical Spine x 2 Surgical HistoryHysterectomySurgical Historyrevision of external fixation device in L fibula, open approachSurgical Historytonsillectomy and adenoidectomy Surgical HistoryORIF, proximal fibulaSurgical LstnvvaNDY8815Okdoihxf History Lumbar tqbqfu0573/1992Surgical HistoryACDF C4-611/20Surgical HistoryRight reverse total shoulder arthroplasty03/2023Hospitalization HistorySee Above [facility] Other Hospital course Narrative No data available for this section [facility] Dis[facility] instructions No data available for this section [facility]ospital Discharge instructionsAmbulatory Orders* Referral to Allergy/Immunology Location: None [facility] Work Phone: Hospital Discharge instructionsAdditional Instructions [...] cleared by orthopedic surgeon to take it off.[facility] Work Phone: Progress note No data available for this section [facility]woodReason for referral (narrative)No reason for referral information availableTwin City Hospital Work Phone: Summary Purpose Family [...] 2024 3:15pm Screening mammogram for breast cancer [facility] 2024 3:15pm Wellness examination August 29, 2024 [...] 2024 3:15pm Screening mammogram for breast cancer [facility] 2024 3:15pm Wellness examination August 29, 2024 [...] section and content) DATE CREATED AUTHOR 12/29/2017 [facility] DATE CREATED AUTHOR AUTHOR'S ORGANIZ ATION 05/13/2020 [facility] DATE CREATED AUTHOR AUTHOR'S ORGANIZ ATION 10/15/2022 [facility] DATE CREATED AUTHOR AUTHOR'S ORGANIZ ATION 03/20/2024 [facility] DATE CREATED AUTHOR AUTHOR'S ORGANIZ ATION 04/29/2024 [facility] DATE CREATED AUTHOR AUTHOR'S ORGANIZ ATION 11/21/2024 [facility] DATE CREATED AUTHOR AUTHOR'S ORGANIZ ATION 12/11/2024 [facility] DATE CREATED AUTHOR AUTHOR'S ORGANIZ ATION 03/09/2025 [facility] DATE CREATED AUTHOR AUTHOR'S ORGANIZ ATION 05/07/2025 [facility] DATE CREATED AUTHOR AUTHOR'S ORGANIZ ATION 05/18/2025 [facility] EPIC REASON FOR VISIT (unrecogniz ed section and content) ReasonCommentsFollow-upR rev TSA 04/06/23ReasonCommentsFollow-upR shoulder pain, Rev TSA 04/06/23 poss coracoid an/or accromial fx maReasonCommentsPost-opReason HtyljeceNcck-ytOxtlorSdbgoxnzEpesdk-nsQcremgWelhdecwIpceuf-upMRI N[facility] 09/28/24 ReasonCommentsPain Patient Care team informatio [...] DateEnd Date John Ashby MD [address] [place] [address] [facility] - [facility]12/23/22Team MemberRelationshipSpecialtyStart Date End Date John Ashby MD [address] [place] [address] PCP - GeneralInternal Medicine12/23/22 Team Status: Active [...] DateEnd Date John Ashby MD [address] [facility] [place] [address] PCP - GeneralInternal Medicine12/23/22 Team Status: Inactive Member Role Status Dates John Ashby DO Primary Care Provide r, Attending Provider Active Start: April 17, 2024 End: April 17, 2024 Team Status: Inactive Member Role Status Dates John Ashby DO Primary Care Provide r, Attending Provider Active Start: May 09, 2024 End: May 09, 2024Team MemberRelationshipSpecialtyStart DateEnd Date John Ashby MD [address] [place] [phone] [facility] - [facility]12/23/22Team MemberRelationshipSpecialtyStart Date End Date John Ashby MD [address] [facility] [place] [phone] PCP - [facility] [place] Medicine12/23/22Team MemberRelationshipSpecialtyStart Date End Date John Ashby MD [address] [place] [phone] PCP - GeneralInternal Medicine12/23/22Team MemberRelationshipSpecialtyStart Date End Date John Ashby MD [address] [place] [phone] PCP - GeneralInternal Medicine12/23/22 Team Status: Active [...] DateEnd Date John Ashby MD [address] [place] [phone] PCP - GeneralInternal Medicine12/23/22 Team Status: Active [...] MemberRelationshipSpecialtyStart Date End Date John Ashby [address] [place] [phone] PCP - GeneralInternal Xtpnbinp31/3/25 Goals (unrecognized section and content) Goals may [...] PRIMARY CLINICAL RECORDS. [facility] [employer] [facility]. provides no warranty or guarantee of the accuracy or completeness of information in this document.
[2025-06-10 12:25] LABS: Alanine Aminotransferase 19 U/L (14-59); Albumin Globulin Ratio 1.0; Albumin Level 3.3 g/dL (3.4-5.0); Alkaline Phosphatase 79 U/L (46-116); Anion Gap 11.6; Aspartate Amino Transferase 19 U/L (15-37); Blood Urea Nitrogen 18.0 mg/dL (7.0-18.0); Calcium 8.8 mg/dL (8.5-10.1); Carbon Dioxide 29.3 mmol/L (21.0-32.0); Chloride 108 mmol/L (98-107); Estimated GFR (African America >60 (>=60 mL/min/1.73m^2); Estimated GFR (Non-African Ame 55 (>=60 mL/min/1.73m^2); Globulin 3.3 g/dL; Glucose 83 mg/dL (74-106); Potassium 3.9 mmol/L (3.5-5.1); Sodium 145 mmol/L (136-145); Total Protein 6.6 g/dL (6.4-8.2)
[2025-06-10 12:43] LABS: Hematocrit 39.1 % (36.0-48.0); Hemoglobin 12.7 g/dL (12.0-16.0); Immature Granulocytes Abs Auto 0.02 10^3/uL (0.00-0.03); Immature Granulocytes Pct Auto 0.4 % (0.0-0.5); Lymphocytes Absolute Auto 1.5 10^3/uL (1.2-3.8); Mean Corpuscular HGB Conc 32.5 g/dL (29.9-35.2); Mean Corpuscular Hemoglobin 30.9 pg (26.7-34.0); Mean Corpuscular Volume 95.1 fL (81.0-99.0); Platelet Count 221 10^3/uL (150-450); Red Blood Count 4.11 10^6/uL (4.20-5.40); White Blood Count 5.6 10^3/uL (4.0-11.0)
== END 2025-06-10 11:30 | disposition home or self-care (01) ==
PROVIDERS: PCP Internal Medicine; Visit Provider Internal Medicine Rheumatology
DX: M05.79 Rheumatoid arthritis with rheumatoid factor of multiple sites without organ or systems involvement (principal)
CPT/HCPCS: 36415; 80053; 85025; 85652

== ENCOUNTER 2025-06-10 11:51 | Outpatient (OUT) | payer MEDICARE, SELFPAY ==
--- OUTSIDE RECORDS SUMMARY | 2025-06-10 12:08 | XMS_ITS | CCD ---
Author Organization [facility] Care Team Providers Care Auto Roller Name Role Phone BASIM, BARRY H. Unavailable Unavailable BASIM, BARRY H. Unavailable Unavailable BALL, JOHN E Unavailable Unavailable BASIM, BARRY H. Unavailable Unavailable BALL, JOHN E Unavailable Unavailable EBRAHEIM, MARYURI Attending Unavailable EBRAHEIM, MARYURI Admitting Unavailable SYMONE, JOHN Referring Unavailable SYMONE, JOHN Primary Care Unavailable EBRAHEIM, MARYURI Surgeon Unavailable [place] Procedure Practitioner Unavailab le [place] Procedure Practitioner Unavailab PRAKASH Chery Surgeon Unavailable [...] Amy vailable THANH, KATE Attending Unavailable THANH, KTAE Admitting Unavailable BALL, DR LOPEZ Primary Care [...] DO Jordan A Attending Unavailable Brown, DO Jodran A Referring Unavailable Ball John CAMPOS Primary Care Provider Ethan Padilla DO Attending Provider [phone] Brown, Jordan A Referring Unavailable Brown, Jordan A Attending Unavailable Brown, Jordan A Admitting Unavailable Brown, Jordan A Admitting Unavailable Brown, Jordan A Referring Unavailable Brown, Jordan A Attending Unavailable CAROLINA ZHONG Attending Unavailable John Ashby DO Primary Care Provider John Ashby DO Attending Provider [phone] Giedraitis , Andrius Vytautflor Attending Unavailable Giedraitis , Andrius Vytautas Attending Unavailable Giedraitis , Andrius Vytautas Attending Unavailable Giedraitis , Andrius Vytautflor Attending Unavailable Sesar Arias DO Emergency Provider [phone] Sesar Arias Admitting Unavailable Sesar Arias Attending [...] ClassificationReported Allergen(s)Allergy TypeDate of OnsetReaction(s) Facility (1 source)21849,00; Translations: [Unknown]Propensity to adverse reactions (disorder)[id number] Repository (20 sources)Cephalexin; Translations: [CEPHALEXIN]Drug Gayenyr94-91-4626BGN[facility] [place] Work Phone: (7 sources)patient allergy list reviewed by nurse or physiciaPropensity to adverse zjtoirstp09-61-9301Behwapk:Objective Logistics Other (1 source)CephalexinDrug Kutbngl75-80-9252XvblzhqglDayton Va [facility] Rep[facility] Medications Current Medications MedicationDrug Class(es)DatesSig (Normalized)Sig (Original)acetaminophen 500 mg oral tablet (12 sources)Start: 73-30-7262smlx 1 tablet by mouth every four hours for pain acetaminophen (Tylenol Extra Strength) 500 MG tablet Indications: Status post shoulder surgery Take1 tablet (500 mg) by mouth every 4 (four) hours if needed for mild pain 40 tablet 05/22/2024 Activeacetaminophen 325 mg / HYDROcodone bitartrate 5 mg oral tablet (20 sources)Opioid AgonistStart: 82-00-1501ldiq 1 tablet by mouth three times daily as needed for painHydrocodone-Acetaminophen 5-325 mg tablet Active 1 TAB PO Three times daily as needed for pain 0 September 25, 2024 12:00am Complies with drug therapyStart: 94-82-6693yczo 1 tablet by mouth every twelve hours as neededHydrocodone-Acetaminophen 5-325 mg tablet Active 1 TAB PO Every 12 hours as needed September 252:00am Complies with drug therapyStart: 05-08-2024 End: 44-06-7101ptxm 1-2 tablets by mouth every four hoursHYDROcodone- acetaminophen ([place]) 5-325 MG tablet Indications: Status post shoulder surgery Take 1-2 tablets by mouth every 4 (four) hours if needed (pain) for up to 7 days 40 tablet 05/08/2024 05/15/2024 ActiveStart: 82-23-3258hxii 1 tablet by mouth every six hoursacetaminophen-hydrocodone 325 mg-5 mg oral tablet 1 tab(s), Oral, q6hr, Refill(s) 0, Pain Start Date: 03/19/24 Status: OrderedStart: 06-30-2023 HYDROcodone-acetaminophen ([place]) 5-325 MG tablet 06/30/2023 ActiveStart: 91-81-0278cxse 1 tablet by mouth three times daily as neededHYDROcodone- acetaminophen ([place]) 5-325 MG tablet TAKE 1 TABLET BY MOUTH 3 TIMES A DAY NEEDED FOR PAIN*MUS LAST 30 DAYS 06/30/2023 Activeacetaminophen 325 mg / oxyCODONE hydrochloride 5 mg oral tablet (20 sources)Opioid AgonistStart: 06-85-2085Jzzugkpp 5 mg-325 mg oral tablet See Instructions, 40 tab(s), Refill(s) 0, 1-2 tab(s) Oral q4hr, [facility]/pharmacy #[id number], 165, cm, 03/19/24 13:53:00 EDT, Height/Length Dosing, 65, kg, 03/19/24 13:53:00 EDT, Weight Dosing Start Date: 04/27/24 Status: OrderedStart: 49-96-5055Didszvyc 5 mg-325 mg oral tablet See Instructions, 40 tab(s), Refill(s) 0, 1-2 tab(s) Oral q4hr, [facility]/pharmacy #[id number], 160, cm, 03/25/23 6:16:00 EDT, Height/Length Dosing, 73.5, kg, 03/25/23 6:16:00 EDT, Weight Dosing Start Date: 04/06/23 Status: OrderedStart: 06-30-2018 End: 86-38-3032imci 1 tablet by mouth three times dailyOxycodone-Acetaminophen 5-325 mg Tablet Discontinued 1 TAB PO Three times daily June 30, 2018 1:00am September 27, 2023 2:54pm pain End: 50-41-2502cnkc 1-2 tablets by mouth every six hoursoxyCODONE-acetaminophen (Percocet) 5-325 MG tablet TAKE 1-2 TABLETS BY MOUTH EVERY 6 HOURS 09/18/2024 Mgpnogwduuim54 hr buPROPion hydrochloride 300 mg extended release oral tablet (20 sources)AminoketoneStart: 32-65-2020bier 1 tablet by mouth once daily Bupropion Hcl 300 mg tablet extended release 24 hr Active 300 MG PO Daily 90 90 December 10, 2024 8:39am Complies with drug therapyStart: 09-22-2023 End: 72-60-4375Yccfpjtro Hcl 300 mg tablet extended release 24 hr Discontinued 0 .ROUTE .COMPLEX 90 March 20, 2024 8:35am December 10, 2024 8:40am TAKE 1 TABLET DAILY IN THE MORNINGStart: 92-54-6738zgGDBCmtd XL (Wellbutrin XL) 300 MG 24 hr tablet 03/26/2023 ActiveStart: 90-01-3854skqx 1 tablet by mouth twice dailyWellbutrin XL 300 mg/24 hours Tab-ER 300 mg = 1 tab(s), Oral, BID, Refills(s) 0, Depression Start Date: 03/24/23 Status: OrderedStart: 06-30-2018 End: 99-40-6295vgrc 1 tablet by mouth once dailyBupropion Hcl [...] mg oral capsule (3 sources)Nonsteroidal Anti-inflammatory DrugStart: 46-29-0892qfhl 1 capsule by mouth twice daily as needed for painCeleBREX 100 mg Cap 100 mg = 1 cap(s), Oral, BID, PRN for pain, # 60 cap(s), Refills(s) 0, Pharmacy: [facility]/pharmacy #[id number], 165, cm, 03/19/24 13:53:00 EDT, Height/Length Dosing, 65, kg, 03/19/24 13:53:00 EDT, Weight Dosing Start Date: 04/27/24 Status: OrderedStart: 64-31-8726qdal 1 capsule by mouth twice daily as needed for painCeleBREX 100 mg Cap 100 mg = 1 cap(s), Oral, BID, PRN for pain, # 60 cap(s), Refills(s) 0, Pharmacy: [facility]/pharmacy #[id number], 160, cm, 03/25/23 6:16:00 EDT, Height/Length Dosing, 73.5, kg, 03/25/23 6:16:00 EDT, Weight Dosing Start Date: 04/06/23 Status: Orderedcephalexin 500 mg oral capsule (1 source)Cephalosporin AntibacterialStart: 04-06-2023 End: 82-29-0725gjaz 1 capsule by mouth every eight hoursKeflex 500 mg Cap 500 mg = 1 cap(s), Oral, q8hr, X 7 day(s), # 21 cap(s), Refills(s) 0, Pharmacy: [facility]/pharm[facility] #[id number], 160, cm, 03/25/23 6:16:00 EDT, Height/Length Dosing, 73.5, kg, 03/25/23 6:16:00 EDT, Weight Dosing Start Date: 04/06/23 Stop Date: 04/13/23 Status: Orderedcitalopram 10 mg oral tablet (20 sources)Serotonin Reuptake InhibitorStart: 40-56-6570Uptgjwmkmh 10 mg tablet Active 0 .ROUTE .COMPLEX July 24, 2024 8:42am TAKE 1 TABLET DAILYStart: 26-39-6915Dvwlnhnxot 10 mg tablet Active 0 .ROUTE .[facility] July 24, 2024 7:42am TAKE 1 TABLET DAILYStart: 01-26-2024 End: 35-39-9529Onrahepnbn 10 mg tablet Discontinued 0 .ROUTE .[place] [id number] July 24, 2024 8:42am December 10, 2024 8:40am TAKE 1 TABLET DAILYStart: 01-26-2024 End: 90-54-4415Wkevmpamuu 10 mg tablet Discontinued 0 .ROUTE .[place] January 26, 2024 8:54am July 2458:42am TAKE 1 TABLET DAILYStart: 01-26-2024 End: 26-89-6728Fmqeayqkfr 10 mg tablet Discontinued 0 .ROUTE .[place] [id number] January 26, 2024 7:54am July 2457:42am TAKE 1 TABLET DAILYStart: 01-26-2024 Citalopram Active 0 .ROUTE .[facility] January 26, 2024 8:54am TAKE 1 TABLET DAILYStart: 08-17-2023 End: 07-95-3798yffoyfhcan (CeleXA) 10 MG tablet 08/17/2023 ActiveStart: 06-30-2018 End: 39-21-3901wmzo 1 tablet by mouth once dailyCitalopram 20 mg Tablet Discontinued 20 MG PO Daily June 30, 2018 1:00am September 27, 2023 2:50pm depressiontake 1 tablet by mouth every twenty-four hoursCitalopram Hydrobromide 10 MG 1 tablet Orally Once a day Activedocusate sodium 100 mg oral capsule (3 sources)Start: 41-40-6822tycx 1 capsule by mouth twice daily as needed for constipationColace 100 mg Cap 100 mg = 1 cap(s), Oral, BID, PRN for constipation, # 20 cap(s), Refills(s) 0, Pharmacy: [facility]/pharmacy #[id number], 165, cm, 03/19/24 13:53:00 EDT, Height/Length Dosing, 65, kg, 03/19/24 13:53:00 EDT, Weight Dosing Start Date: 04/27/24 Status: OrderedStart: 29-23-7276hrez 1 capsule by mouth twice daily as needed for constipationColace 100 mg Cap 100 mg = 1 cap(s), Oral, BID, PRN for constipation, # 20 cap(s), Refills(s) 0, Pha rmacy: [facility]/pharmacy #[id number], 160, cm, 03/25/23 6:16:00 EDT, Height/Length Dosing, 73.5, kg, 03/25/23 6:16:00 EDT, Weight Dosing Start Date: 04/06/23 Status: Orderedleflunomide 10 mg oral tablet (20 sources)Antirheumatic AgentStart: 06-30-2018 End: 27-06-9468dkpg 1 tablet by mouth once dailyLeflunomide (Arava) 10 mg tablet Active 10 MG PO Daily September 27, 2023 12:00am Complies with drug therapy lidocaine 0.05 mg/mg medicated patch (8 sources)Antiarrhythmic, Amide Local AnestheticStart: 06-13-2024 End: 47-09-5741kbacy 1 dose transdermal route every twelve hours, then apply 1 dose transdermal route every twelvehourslidocaine (Lidoderm) 5 % patch Indications: Bilateral shoulder pain, unspecified chronicity Apply 1patch over 12 hours topically Daily Remove & discard patch within 12 hours or as directed by . 30 patch 5 06/13/2024 12/10/2024 Qjfeqs30 hr metoprolol succinate 100 mg extended release oral tablet (20 sources)beta-Adrenergic BlockerStart: 59-75-1189sjgz 1 tablet by mouth once dailyMetoprolol Succinate 100 mg tablet extended release 24 hr Active 100 MG PO Daily September 27, 2023 12:00am Complies with drug therapyStart: 04-06-2023 End: 11-16-2127pcnnhzzqlq 100 mg ER Tab 100 mg = 1 tab(s), Tab-ER, Oral, Start date 04/06/23 9:00:00 PM EDT, 04/06/23 9:58:00 EDT Start Date: 04/06/23 Stop Date: 04/06/23 Status: CompletedStart: 89-97-0939zeki 1 tablet by mouth at bedtime metoprolol 100 mg ER Tab 100 mg = 1 tab(s), Oral, Bedtime, Refills(s) 0, High blood pressure Start Date: 04/06/23 Status: Orderedmetoprolol succinate XL (Toprol-XL) 100 MG 24 hr tablet Activeomeprazole 40 mg delayed release oral capsule (20 sources)Proton Pump InhibitorStart: 75-26-8748Siuemuxvta 40 mg capsule,delayed release(DR/EC) Active 40 MG PO Daily April 15, 2025 12:30pm take on an empty stomach, 30 minutes prior to bkfst Complies with drug therapyStart: 06-04-2024 End: 42-51-0476Hrvpovkxlc 40 mg capsule,delayed release(DR/EC) Discontinued 0 .ROUTE .COMPLEX 90 June 04, 2024 8:00am April 15, 2025 12:31pm TAKE 1 CAPSULE ONCE DAILY ON AN EMPTY STOMACH FOLLOWED IN 30 MINUTES BY BREAKFAST Start: 09-27-2023 End: 07-97-6037iqjx 1 capsule by mouth once dailyOmeprazole 40 mg capsule,delayed release(DR/EC) Discontinued 40 MG PO Daily September 27, 2023 12:00am June 04, 2024 8:00amOmeprazole 40 mg capsule,delayed release(DR/EC) (4 sources)Start: 62-37-1095Jwqwhzsrkg 40 mg capsule,delayed release(DR/EC) Active 0 .ROUTE [...] disintegrating oral tablet (9 sources)Serotonin-3 Receptor AntagonistStart: 30-68-7865mwxs 1 tablet by mouth every eight hours as needed for nausea and vomitingOndansetron 4 mg tablet,disintegrating Active 4 MG PO Every 8 hours as needed for nausea and vomiting April 13, 2024 12:00am Complies with drug therapypregabalin 150 mg oral capsule (20 sources)Start: 92-44-8508wnzvialkde (Lyrica) 150 MG capsule 03/31/2023 ActiveStart: 06-30-2018 End: 26-02-1827nbbj 1 capsule by mouth three times dailyPregabalin (Lyrica) 75 mg Capsule Discontinued 75 MG PO Three times daily June 30, 2018 1:00am September 27, 2023 2:54pm pain, neuropathySemaglutide (1 source)Start: 25-19-8933jnrdkc 2 mg by subcutaneous injection every week Semaglutide Active 2 MG SUBCUT every week 10 05April 17, 2024 12:00am tiZANidine 4 mg oral tablet (20 sources)Central alpha-2 Adrenergic AgonistStart: 82-70-2819pqik 3 tablets by mouth once daily in the eveningTizanidine 4 mg tablet Active 12 MG PO Every evening April 29, 2025 12:00am Complies with drug therapyStart: 09-25-2024 take 1 capsule by mouth once dailyTizanidine 4 mg capsule Active 4 MG PO Daily September 25, 2024 10:36am muscle spasm Complies with drug therapyStart: 75-79-7743fcoq 1 capsule by mouth four times dailyTizanidine 4 mg capsule Active 4 MG PO Four times daily September 25, 2024 10:36am Complies with drugtherapy Start: 09-27-2023 End: 82-08-7660udmj 1 capsule by mouth every six hoursTizanidine 4 mg capsule Discontinued 4 MG PO Every 6 hours September 27, 2023 2:53pm September 25, 2024 10:38am muscle spasmStart: 35-73-0668uhzq 1 tablet by mouth in the morning, then take 3 tablets by mouth at bedtimeZanaflex 4 mg Tab See Instructions, 1 tab(s) Oral in AM 3 tabs at bedtime, Refills(s) 0 Start Date:03/24/23 Status: Ordered Start: 06-30-2018 End: 08-38-9304hyoe 1 capsule by mouth twice dailyTizanidine 4 mg Capsule Discontinued 4 MG PO Twice daily June 30, 2018 1:00am September 27, 2023 2:54pm muscle spasmtake 1 capsule by mouth every six hourstiZANidine HCl 4 MG 1 tablet as needed Oral every 6 hours for 30 Active Completed/Discontinued Medications MedicationDrug Class(es)DatesSig (Normalized)Sig (Original)alendronic acid 70 mg oral tablet (15 sources)BisphosphonateStart: 06-30-2018 End: 19-17-3237ugny 1 tablet by mouth every weekAlendronate (Fosamax) 70 mg Tablet Discontinued 70 MG PO every week June 30, 2018 1:00am September 27, 2023 2:54pmaspirin 81 mg delayed release oral tablet (20 sources)Platelet Aggregation Inhibitor, Nonsteroidal Anti-inflammatory Drug Start: 06-30-2018 End: 57-83-6708mdes 1 tablet by mouth once dailyAspirin 81 mg Tablet,Delayed Release (Dr/Ec) Discontinued 81 MG PO Daily June 30, 2018 1:00amMarc2023 2:48pm blood clot preventionbetamethasone 3 mg/ml / betamethasone acetate 3 mg/ml injectable suspension (4 sources)CorticosteroidStart: 06-05-2024 End: 29-41-0428nzptskufvkyox acetate-betamethasone sodium phosphate (Celestone) injection 2 mLStart: 06-05-2024 End: mL, Intra-articular, Once PRN Procedure, Starting on Tue06/05/24 at 1426, For 1 dosecalcium carbonate 1500 mg oral tablet (18 sources)Start: 05-41-4888tcgk 1 tablet by mouth every twelve hoursCalcium 600 MG 1 tablet with meals Orally Twice a day Apr, Not-Taking/PRNStart: 08-35-5247sppx 1 tablet by mouth every twelve hoursCalcium 600 MG 1 tablet with meals Orally Twice a day Apr, Not-Bjeynq65 hr dilTIAZem hydrochloride 360 mg extended release oral tablet (15 sources)Calcium Channel BlockerStart: 06-30-2018 End: 56-46-1428wdqg 1 tablet by mouth once dailyDiltiazem Hcl 360 mg Tablet Extended Release 24 Hr Discontinued 360 MG PO Daily June 30, 20181:00am September 27, 2023 2:50pm tachycardiadoxycycline hyclate 100 mg oral capsule (20 sources)Tetracycline-class DrugStart: 09-27-2023 End: 06-40-0502apuq 1 capsule by mouth twice dailyDoxycycline Hyclate 100 mg capsule Discontinued 100 MG PO Twice daily September 27, 2023 12:00am September 28, 2023 3:15pmStart: 90-57-0062kuxo 1 capsule by mouth every twelve hours Doxycycline Hyclate 100 MG 1 capsule Orally Twice a day for 5 days Jun, ActiveStart: 07-06-2018 End: 69-38-1915mizx 1 tablet by mouth twice dailyDoxycycline Hyclate 100 mg tablet Discontinued 100 MG PO Twice daily 10 5 0 July 06, 2018 1:00am September 27, 2023 2:50pmibuprofen 800 mg oral tablet (15 sources)Nonsteroidal Anti-inflammatory DrugStart: 07-06-2018 End: 31-09-3953kidu 1 tablet by mouth three times dailyIbuprofen 800 mg tablet Discontinued 800 MG PO Three times daily 60 0 July 06, 2018 1:00am September 27, 2023 2:50pm Postoperative pain of extremity Other acute postprocedural painlisinopril 5 mg oral tablet (20 sources)Angiotensin Converting Enzyme InhibitorStart: 09-27-2023 End: 98-31-3136xnyo 1 tablet by mouth once dailyLisinopril 5 mg tablet Discontinued 5 MG PO Daily September 27, 2023 12:00am September 25, 2024 10:35am Start: 04-07-2023 End: 44-59-8065tuwqaimqim 5 mg Tab 5 mg = 1 tab(s), Tab, Oral, Start date 04/07/23 9:00:00 AM EDT, 04/06/23 9:58:00EDT Start Date: 04/07/23 Stop Date: 04/07/23 Status: CompletedStart: 11-09-2022 End: 92-56-0933mwio 1 tablet by mouth in the morninglisinopril 5 MG tablet Take 1 tablet by mouth in the morning. 01/21/2023 07/17/2024 Discontinuedphentermine hydrochloride 37.5 mg oral capsule (20 sources)Sympathomimetic Amine AnorecticStart: 09-02-2023 End: 27-34-3266brtt 1 capsule by mouth once daily 30 minutes after breakfast Phentermine 37.5 mg capsule Discontinued 37.5 MG PO Daily 0 September 02, 2023 4:19pm September 02, 2023 4:44pm Overweight Overweight must administer 30 minutes before or 1-2 hours after breakfastStart: 90-91-2027kdys 1 tablet by mouth once dailyPhentermine HCl 37.5 MG take 1 tablet by mouth once daily for 30 Jan, ActiveStart: 81-30-6173jmox 1 tablet by mouth every twenty-four hoursAdipex-P 37.5 MG 1 tablet Orally Once a day for 30 days Dec, Active Start: 19-98-5645bmcn 1 tablet by mouth every twenty-four hoursAdipex-P 37.5 MG 1 tablet Orally Once a day for 30 days Jul, ActiveSemaglutide (6 sources)Start: 10-23-2024 End: 33-52-5654vlfjyl 2 mg by subcutaneous injection every weekSemaglutide 2 mg/dose (8 mg/3 mL) pen injector Discontinued 2 MG SUBCUT every week 3 October 23, 2024 8:46am October 23, 2024 8:47amStart: 10-23-2024 End: 19-08-9021qinixa 2 mg by subcutaneous injection every weekSemaglutide 2 mg/dose (8 mg/3 mL) pen injector Discontinued 2 MG SUBCUT every week 3 October 8:46am October 23, 2024 8:47amStart: 04-17-2024 End: 94-28-8158vbuqss 2 mg by subcutaneous injection every weekSemaglutide 2 mg/dose (8 mg/3 mL) pen injector Discontinued 2 MG SUBCUT every week 3 April 17, 2024 12:00am October 23, 2024 8:46amStart: 04-17-2024 End: 94-64-3315lhghva 2 mg by subcutaneous injection every weekSemaglutide 2 mg/dose (8 mg/3 mL) pen injector Discontinued 2 MG SUBCUT every week 3 April 17, 2024 12:00am October 23, 2024 8:46amSemaglutide 2 mg/dose (8 mg/3 mL) pen injector (6 sources)Start: 10-23-2024 End: 66-57-4062qfuehw 2 mg by subcutaneous injection every weekSemaglutide 2 mg/dose (8 mg/3 mL) pen injector Discontinued 2 MG SUBCUT every week 3 October 8:46am October 23, 2024 8:47amStart: 04-17-2024 End: 27-32-2685aikglo 2 mg by subcutaneous injection every weekSemaglutide 2 mg/dose (8 mg/3 mL) pen injector Discontinued 2 MG SUBCUT every week 3 April 17, 2024 12:00am October 23, 2024 8:46amStart: 55-00-9829cmvtru 2 mg by subcutaneous injection every weekSemaglutide 2 mg/dose (8 mg/3 mL) pen injector Active 2 MG SUBCUT every week 3 April 172:00amStart: 04-17-2024 inject 2 mg by subcutaneous injection every weekSemaglutide 2 mg/dose (8 mg/3 mL) pen injector Active 2 MG SUBCUT every week 3 April 161:00pm traZODone hydrochloride 100 mg oral tablet (15 sources)Serotonin Reuptake InhibitorStart: 06-30-2018 End: 49-79-0973Ilrsoylfj 100 mg Tablet Discontinued 50 MG PO Daily at bedtime June 30, 2018 1:00am September 27, 2023 2:54pm insomniaStart: 06-30-2018 End: 56-77-2050vwpp 50 mg by mouth once daily at bedtimeTrazodone Discontinued 50 MG PO Daily at bedtime June 30, 2018 1:00am September 27, 2023 2:54pm24 hr upadacitinib 15 mg extended release oral tablet (20 sources)Start: 03-24-2023 End: 52-91-8954wqus 1 tablet by mouth once dailyUpadacitinib 15 [...] Nucleoside Analog DNA Polymerase InhibitorStart: 09-27-2023 End: 06-10-3976cvoy 2000 mg by mouth twice dailyValacyclovir Discontinued 2000 MG PO Twice daily September 27, 2023 12:00am September 28, 2023 3:15pmStart: 03-31-2023 End: 35-11-4676duoWNGevvgkv (Valtrex) 1 g tablet Take 2,000 mg [...] pain (20 sources)Indigestion; Translations: [Epigastric pain] Resolved: [id number] bronchitis (10 sources)Acute bronchitis; Translations: [Acute bronchitis due to other specified organisms]EpisodicAnxiety disorders (20 sources)Generalized anxiety disorder; Translations: [Generalized anxiety disorder]ChronicCardiac dysrhythmias (20 sources)Paroxysmal tachycardia; Translations: [Paroxysmal tachycardia, unspecified]Onset: 97-03-2809JsihozzXtdqrgp dysrhythmias (5 sources)Ztkeiyylsoi40-52-0759DlhbgwzdYgkahoa kidney disease (20 sources)Chronic kidney disease; Translations: [Chronic kidney disease, unspecified]19-59-9800KsaxgxcWljmrkssao heart failure; nonhypertensive (20 sources)Chronic systolic heart failure; Translations: [Chronic systolic (congestive) heart failure]Onset: 259136-43-2033PnzrmqwJzlwsgp on above: LHC: normal - 2011, Echo: LVEF 61%, normal RV size/function, RVSP 25 - 03/2024,Echo: LVEF 55%, normal RV size/function, RVSP 28 - 11/2024Deficiency and other anemia (20 sources)Anemia; Translations: [Anemia, unspecified]70-94-5315Fzsrmhjq Deficiency and other anemia (5 sources)Anemia, unspecified; Translations: [Anemia, unspecified]Onset: 11-37-9429UxhkqhqfDvzvallpxm and other anemia (9 sources)Pernicious anemia; Translations: [Vitamin B12 deficiency anemia due to intrinsic factor deficiency]94-72-4966OkqgtjwmAyadugzgco and other anemia (7 sources)Vitamin B12 deficiency anemia due to intrinsic factor deficiency; Translations: [Pernicious anemia]29-17-3086RalnimasDxaldexxl of lipid metabolism (9 sources)Hypercholesterolemia; Translations: [Pure hypercholesterolemia, unspecified]Onset: 873251-56-6760LxxevycGuvqoztcb hypertension (20 sources)Essential hypertension; Translations: [Essential (primary) hypertension]ChronicFluid and electrolyte disorders (4 sources)Dehydration; Translations: [Dehydration]EpisodicHypertension with complications and secondary hypertension (9 sources)Hypertensive renal disease; Translations: [Hypertensive chronic kidney disease with stage 1 throughstage 4 chronic kidney disease, or unspecified chronic kidney disease]47-58-5213JjirxxfAqqzjhly disorders (5 sources)Immunosuppression; Translations: [Immunodeficiency, unspecified] ChronicImmunizations and screening for infectious disease (9 sources)Contact with and (suspected) exposure to other viral communicable diseases; Translations: [Contact with and (suspected) exposure to COVID-19] EpisodicIntestinal infection (16 sources)Infectious colitis, enteritis and gastroenteritis; Translations: [Infectious gastroenteritis and colitis, unspecified]55-13-5106UwrofgwtExage disorders and dislocations; trauma-related (1 source)Dislocation of joint of upper limb; Translations: [Unspecified dislocation of unspecified shoulder joint, initial encounter]95-83-4093Rogpjhvz Malaise and fatigue (20 sources)Fatigue; Translations: [Other fatigue]96-92-0240LbifegqpTsvnqhzmx disorders (9 sources)Excessive and frequent menstruation; Translations: [Excessive and frequent menstruation with regular cycle]Onset: 52-21-8440AhpvlhgYvbk disorders (20 sources)Mild recurrent major depression; Translations: [Major depressive disorder, recurrent, mild]Onset: 20-19-2983XrxkuzlPcjuzpqzqgwpmv (20 sources)Degenerative joint disease of hand; Translations: [Primary osteoarthritis, left hand]Onset: 97-51-7226DilcjvaWmpwm acquired deformities (2 sources)Other biomechanical lesions of cervical region; Translations: [Other biomechanical lesions of cervical region]Onset: 75-09-2323VmzgkhcfRtpac aftercare (17 sources)Drug monitoring done; Translations: [Encounter for therapeutic drug level monitoring]EpisodicOther aftercare (3 sources)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; Translations: [Long-term (current) use of other medications]Onset: [id number] aftercare (8 sources)Therapeutic drug level - finding; Translations: [Encounter for therapeutic drug level monitoring]EpisodicOther aftercare (2 sources)Encounter for therapeutic drug level monitoring; Translations: [Encounter for therapeutic drug level monitoring]EpisodicOther aftercare (6 sources)Drug therapy finding; Translations: [Other alf (current) drug therapy]49-23-1599VbpoitsaIhqmn aftercare (3 sources)Taking high risk medication; Translations: [Other alf (current) drug therapy]55-00-0242SdqyexeiMfhml circulatory disease (18 sources)History of pericarditis; Translations: [Personal history of other diseases of the circulatory system]EpisodicOther circulatory disease (11 sources)H/O: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 mmol/L21.0-32.0[facility] CenterCreatinine [Mass/Vol]1.29 mg/dLHigh0.55-1.02[facility] CenterGFR/1.73 sq M.predicted MDRD (S/P/Bld) [Vol rate/Area]50 mL/min/{1.73_m2} Low>=60 mL/min/1.73m 2FMarion HospitalGlucose [Mass/Vol]72 mg/sKDhs21-772EvrwxurrfDayton Va Medical CenterPotassium [Moles/Vol]4.3 mmol/L 3.5-5.1FMarion HospitalProtein [Mass/Vol]7.0 g/dL6.4-8.2 [facility] Daytonodium [Moles/Vol]143 mmol/I111-700WifhuhxlpDayton Va Medical CenterTriglyceride [Mass/Vol]66 mg/dL<=150[facility] CenterTSH Qn1.339 m[IU]/L0.358-3.740[facility] Urea nitrogen [Mass/Vol]20.0 mg/dLHigh7.0-18.0[facility] Urea nitrogen/Creatinine [Mass ratio]15.5 mg/mgDayton [facility] Medical Center Laboratory - Hematology and Cell countson 02-36-1897Xmkoyzcz granulocytes/100 WBC (Bld)0.4 %0.0-0.5FMarion HospitalLeukocytes [#/volume] corrected for nucleated erythrocytes in Blood by Automated counon 37-96-9289JYG corrected for nucl RBC Auto (Bld) [#/Vol]Leukocytes [#/volume] corrected for nucleated erythrocytes in Blood by Automated coun4.0-11.0[facility] CenterLymphocytes Auto (Bld) [#/Vol]on 22-96-6018Flkqhgvlyyc (Bld) [#/Vol]Lymphocytes [#/volume] in Blood by Automated count1.2-3.8[facility] CenterLymphocytes/100 WBC Auto (Bld)on 08-31-2024 Lymphocytes/100 WBC (Bld)Lymphocytes/100 leukocytes in Blood by Automated count 20.5-60.0[facility] ShawH Auto (RBC) [Entitic mass]on 54-58-6717XQD (RBC) [Entitic mass]MCH [Entitic mass] by Automated count26.7-34.0 [facility] CenterMCHC Auto (RBC) [Mass/Vol]on 92-38-0944VVSF (RBC) [Mass/Vol]MCHC [Mass/volume] by Automated count29.9-35.2FAshtabula County Medical CenterV Auto (RBC) [Entitic vol]on 42-96-6580TTV (RBC) [Entitic vol] MCV [Entitic volume] by Automated cnjsyFqes80.0-99.0[facility] CenterMicroalbumin [Mass/volume] in Urineon 38-98-0876Rawuuyg DL <= 20 mg/L (U) [Mass/Vol]Microalbumin [Mass/volume] in Urine<=30.0[facility] CenterMonocytes Auto (Bld) [#/Vol]on 03-18-5726Dyxuuruie (Bld) [#/Vol]Automated blood monocyte count0.3-0.8[facility] CenterMonocytes/100 WBC Auto (Bld)on 72-83-4263Nmtozlshn/100 WBC (Bld)Automated monocyte %1.7-12.0 [facility] CenterNeutrophils Auto (Bld) [#/Vol]on 08-31-2024 Neutrophils (Bld) [#/Vol]Neutrophils [#/volume] in Blood by Automated count 1.4-6.5FMarion HospitalNeutrophils/100 WBC Auto (Bld)on 94-62-6267Jcpwhngwdhp/100 WBC (Bld)Automated neutrophil %43.0-75.0[facility] CenterNo Panel Informationon 23-96-9150Ewlpoqjxick # (Auto)0.2 10 3/uL0.0-0.7FMarion HospitalImmature Granulocyte # (Auto)0.02 10 3/uL0.00-0.03[facility] CenterUrine Random Prkrauzsya020.19 mg/dL20.00-300.00[facility] CenterPlatelet mean volume Auto (Bld) [Entitic vol]on 23-34-5542Hdxxgysi mean volume (Bld) [Entitic vol]Platelet mean volume [Entitic volume] in Blood by Automated countLow9.5-13.5FMarion HospitalPlatelets Auto (Bld) [#/Vol]on 41-23-6991Abjrhfgjc (Bld) [#/Vol]Platelets [#/volume] in Blood by Automated kcemj806-721UuplhntyiDayton Va Medical CenterRBC Auto (Bld) [#/Vol]on 13-79-8861HXU (Bld) [#/Vol]Erythrocytes [#/volume] in Blood by Automated countLow4.20-5.40[facility] Hospital Daytonerum or plasma albumin/globulin mass ratioon 44-55-9403Lfffhuv/Globulin [Mass ratio]Serum or plasma albumin/globulin mass ratioAccess Hospital Daytonerum or plasma anion gap determinationon 22-68-6393Llzha gap [Moles/Vol]Serum or plasma anion gap determinationAccess Hospital Daytonerum or plasma total cholesterol/high density lipoprotein (HDL) cholesterol mass albina 58-48-0280Niayidvafve.total/Cholesterol in HDL [Mass ratio]Serum or plasma total cholesterol/high density lipoprotein (HDL) cholesterol mass ratDayton Va Medical CenterComment on above:3.3 - 4.4 LOW RISK4.4 - 7.1 AVERAGE RISK7.1 - 11.0 MODERATE RISK>11.0 HIGH RISKUrine microalbumin/creatinine mass ratioon 60-18-1854Agxcdal/Creatinine DL <= 20 mg/L (U) [Mass ratio]Urine microalbumin/creatinine mass ratio0.0-29.9[facility] CenterComment on above:NO MICROALBUMINURIA 0-29 MG/GCLINICAL MICROALBUMINURIA 30-300 MG/GMACROALBUMINURIA >300 MG/GBasophils Auto (Bld) [#/Vol]on 02-90-7966Idxjnzywu (Bld) [#/Vol]Automated basophil count0.0-0.1 [facility] CenterBasophils/100 WBC Auto (Bld)on 06-21-2024 Basophils/100 WBC (Bld)Automated basophil %0.2-2.0[facility] CenterEosinophils/100 WBC Auto (Bld)on 14-35-1186Anhanuuzfen/100 WBC (Bld) Automated eosinophil %0.9-7.0[facility] CenterErythrocyte distribution width Auto (RBC) [Ratio]on 27-83-2554Mwpyngsyapf distribution width (RBC) [Ratio]Erythrocyte distribution width [Ratio] by Automated count11.0-15.0 [facility] CenterEstimated glomerular filtration rate (GFR) non- Americanon 30-45-6557ATM/1.73 sq M.predicted among non-blacks MDRD (S/P/Bld) [Vol rate/Area]Estimated glomerular filtration rate (GFR) non- AmericanLow>=60 mL/min/1.73m 2FMarion HospitalGlobulin Calc (S) [Mass/Vol]on 28-68-5263Byoqasge (S) [Mass/Vol]Serum globulin measurement by calculation (mass/volume)[facility] CenterHematocrit Auto (Bld) [Volume fraction]on 84-44-1906Xzgjtzzzyr (Bld) [Volume fraction]Hematocrit [Volume Fraction] of Blood by Automated xfgyiTfi87.0-48.0[facility] CenterHemoglobin [Mass/volume] in Bloodon 02-04-8002Zmnzkgkfum (Bld) [Mass/Vol]Hemoglobin [Mass/volume] in PuwjzQzq57.0-16.0[facility] CenterLaboratory - Chemistry and Chemistry - challengeon 06-21-2024 Albumin [Mass/Vol]3.8 g/dL3.4-5.0[facility] CenterALP [Catalytic activity/Vol]48 U/Q92-471WzuopngfsDayton Va Medical CenterALT [Catalytic activity/Vol]13 U/XSiw28-55BgcbufxxvDayton Va Medical CenterAST [Catalytic activity/Vol]14 U/RBpp50-54NdnpwiphhDayton Va Medical CenterBilirubin [Mass/Vol] 0.5 mg/dL0.2-1.0[facility] CenterCalcium [Mass/Vol]9.1 mg/dL 8.5-10.1FMarion HospitalChloride [Moles/Vol]105 mmol/L98-107 [facility] CenterCO2 [Moles/Vol]26.1 mmol/L21.0-32.0[facility] CenterCreatinine [Mass/Vol]1.43 mg/dLHigh0.55-1.02[facility] CenterGFR/1.73 sq M.predicted MDRD (S/P/Bld) [Vol rate/Area]45 mL/min/{1.73_m2}Low>=60 mL/min/1.73m 2FMarion HospitalGlucose [Mass/Vol]76 mg/hW14-754MuesevdlyDayton Va Medical CenterPotassium [Moles/Vol] 3.4 mmol/LLow3.5-5.1FMarion HospitalProtein [Mass/Vol]6.7 g/dL 6.4-8.2FOhioHealth O'Bleness Hospitalodium [Moles/Vol]144 mmol/W113-006 [facility] CenterUrea nitrogen [Mass/Vol]18.0 mg/dL7.0-18.0 [facility] CenterUrea nitrogen/Creatinine [Mass ratio]12.6 mg/mg [facility] CenterLaboratory - Hematology and Cell countson 43-20-9911SKE (Bld) [Velocity]6 mm/h<=30[facility] Immature granulocytes/100 WBC (Bld)0.3 %0.0-0.5FMarion Hospital Leukocytes [#/volume] corrected for nucleated erythrocytes in Blood by Automated counon 67-53-2429BWV corrected for nucl RBC Auto (Bld) [#/Vol]Leukocytes [#/volume] corrected for nucleated erythrocytes in Blood by Automated counLow 4.0-11.0[facility] CenterLymphocytes Auto (Bld) [#/Vol]on 96-03-0716Ihlyanktxvn (Bld) [#/Vol]Lymphocytes [#/volume] in Blood by Automated count1.2-3.8[facility] CenterLymphocytes/100 WBC Auto (Bld)on 57-84-9755Usxmgxlhbtq/100 WBC (Bld)Lymphocytes/100 leukocytes in Blood by Automated count20.5-60.0[facility] ShawH Auto (RBC) [Entitic mass]on 33-59-5337WER (RBC) [Entitic mass]MCH [Entitic mass] by Automated count 26.7-34.0[facility] CenterMCHC Auto (RBC) [Mass/Vol]on 56-27-7557GTCX (RBC) [Mass/Vol]MCHC [Mass/volume] by Automated count29.9-35.2 [facility] CenterMCV Auto (RBC) [Entitic vol]on 47-20-6328OLZ (RBC) [Entitic vol]MCV [Entitic volume] by Automated count81.0-99.0[facility] CenterMonocytes Auto (Bld) [#/Vol]on 71-44-6553Aeigqumcr (Bld) [#/Vol]Automated blood monocyte count0.3-0.8[facility] Monocytes/100 WBC Auto (Bld)on 47-44-1127Qookinuyv/100 WBC (Bld)Automated monocyte %1.7-12.0[facility] CenterNeutrophils Auto (Bld) [#/Vol]on 94-00-8285Kxdmxxlrpmu (Bld) [#/Vol]Neutrophils [#/volume] in Blood by Automated count1.4-6.5FMarion HospitalNeutrophils/100 WBC Auto (Bld)on 41-59-3855Uhrqsmqamni/100 WBC (Bld)Automated neutrophil %Low43.0-75.0 [facility] CenterNo Panel Informationon 86-14-7891Qqqwryqbiat # (Auto)0.1 10 3/uL0.0-0.7FMarion HospitalImmature Granulocyte # (Auto)0.01 10 3/uL0.00-0.03[facility] CenterPlatelet mean volume Auto (Bld) [Entitic vol]on 93-48-3727Gsqvglpc mean volume (Bld) [Entitic vol] Platelet mean volume [Entitic volume] in Blood by Automated countLow9.5-13.5 [facility] CenterPlatelets Auto (Bld) [#/Vol]on 06-21-2024 Platelets (Bld) [#/Vol]Platelets [#/volume] in Blood by Automated -669 [facility] CenterRBC Auto (Bld) [#/Vol]on 10-22-1841EHH (Bld) [#/Vol]Erythrocytes [#/volume] in Blood by Automated countLow4.20-5.40[facility] Hospital Daytonerum or plasma albumin/globulin mass ratioon 06-21-2024 Albumin/Globulin [Mass ratio]Serum or plasma albumin/globulin mass ratio [facility] Daytonerum or plasma anion gap determinationon 31-42-7266Ruzdl gap [Moles/Vol]Serum or plasma anion gap determinationDayton Va Medical CenterNo Panel Informationon 01-85-6042Uhtpvjx Scruggs, ARRT 06/09/2024 1:08 PM L Inj/Asp: L glenohumeral on 06/05/2024 2:26 PM Indications: pain Details: 25 G needle, ultrasound-guided Medications: 2 mL betamethasone acetate-betamethasone sodium phosphate 6 (3-3) MG/ML Consent was given by the patient. [facility]XR Shoulder - left 2 Viewson 67-45-3292Peplzhq Result: 3 views left shoulder, Grashey/Zanca/outlet, taken today and saved to the permanent medical record are reviewed. No fractures. [facility] WNCatawba Valley Medical CenterXR Shoulder - left 2 Viewson 66-36-3751Qxndmxkxu Study observation (narrative)[facility] HealthcareMain OR Intraoperative Recordon 13-28-4761Hivv OR Intraoperative RecordMain OR Intraoperative RecordNormalFisher [facility] w/ Auto Diffon 20-54-2811Zkxvbedfd/100 WBC (Bld)1.3 %Normal0.0-2.0 [facility] SystemComment on above:Performed By: #### [id number] ####[facility] [address] [place] [address] Basophils/Leukocytes Auto (Bld) [Pure # fraction]0.1 E9/LNormal0.0-0.2Fpricilla [facility] CenterComment on above:Performed By: #### [id number] ####[address] [address]Ysygkoteibi (Bld) [#/Vol]0.2 E9/LNormal0.0-0.5FTriHealth Bethesda North HospitalComment on above: Performed By: #### [id number] ####[address] [address]Bviowrtzmit/100 WBC (Bld)3.7 %Normal0.0-8.0[facility] SystemComment on above:Performed By: #### [id number] ####[address] [address]Imgpxcdwuxm distribution width (RBC) [Ratio]15.3 %High10.9-14.2FTriHealth Bethesda North Hospital Comment on above:Performed By: #### [id number] ####[address] [address]Zrmjfvfwcs (Bld) [Volume fraction] 27.7 %Low34.0-46.0[facility] SystemComment on above:Performed By: #### [id number] ####[address] [address]Zzapgxhvfu (Bld) [Mass/Vol]9.6 g/dLLow12.0-16.0[facility] Comment on above:Performed By: #### [id number] ####[address] [address]Febnaonjbzz (Bld) [#/Vol]0.9 E9/LLow 1.0-4.0[facility] SystemComment on above:Performed By: #### [id number] ####[address] [address] Lymphocytes/100 WBC (Bld)20.4 %Osgljf80.0-50.0[facility] SystemComment on above:Performed By: #### [id number] ####[address] [address]MVM (RBC) [Entitic mass]33.7 pgNormal 27.0-34.0[facility] SystemComment on above:Performed By: #### [id number] ####[address] [address]MHAG (RBC) [Mass/Vol]34.6 g/nIPziyco62.4-36.0[facility] SystemComment on above:Performed By: #### [id number] ####[address] [address]LTE (RBC) [Entitic vol]97.3 zSNasbdp13.0-100.0 [facility] SystemComment on above:Performed By: #### [id number] ####[address] [address] Monocytes (Bld) [#/Vol]0.8 E9/LNormal0.2-1.0[facility] SystemComment on above:Performed By: #### [id number] ####[address] [address]Uvbtoovatuk (Bld) [#/Vol]2.4 E9/L Normal2.0-7.5FTriHealth Bethesda North HospitalComment on above:Performed By: #### [id number] ####[address] [address]Xnxtrocxkth/100 WBC (Bld)55.1 %Byxamq63.0-75.0[facility] Comment on above:Performed By: #### [id number] ####[address] [address]Mvqnktdf289.0 E9/ODbctpc249.0-500.0 [facility] SystemComment on above:Performed By: #### [id number] ####[address] [address] Platelet mean volume (Bld) [Entitic vol]7.0 fLNormal6.4-10.8[facility] SystemComment on above:Performed By: #### [id number] ####[facility] [address] [place], [place] [address]PHF (Bld) [#/Vol]2.9 E12/LLow 4.3-5.9[facility] SystemComment on above:Performed By: #### [id number] ####[facility] [address] [place], [place] [address]DXO corrected for nucl RBC Auto (Bld) [#/Vol]4.3 E9/LNormal4.0-11.0[facility] SystemComment on above:Result Comment: Peripheral smear review performed.Performed By: #### [id number] ####[facility] [address] [place], [place] [address]Fzorlylce Instructionson 04-27-2024 Discharge InstructionsDischarge Instructions ZAIDIRADHA :1960 [...] has already been scheduled Where: [place] [address]- [facility] (1) Medications What How Much When Instructions Next Dose New acetaminophen-oxycodone (Percocet 5 mg-325 mg oral tablet) See instructions 1-2 tab(s) Oral q4hr Pickup at [facility]/pharmacy #6177 New celecoxib (CeleBREX 100 mg Cap) 1 Capsules By Mouth 2 times a day as needed for for pain [facility]upat [facility]/pharm[facility]177 New docusate (Colace 100 mg Cap) 1 Capsules By Mouth 2 times a day as needed for for constipation [facility] Unchanged buPROPion (Wellbutrin XL 300 mg/ [...] Tablets By Mouth Every day Pharmacy Information [facility]/pharmacy #[id number]: [address], [place] [id number] [phone] What How Much When Comments Stop Taking acetaminophen-hydrocodone (acetaminophen-hydrocodone 325 mg-5 mg oral tablet) 1 TabletsBy Mouth Every 6 hours [employer] [place], [place] [facility] AFTER YOUR SHOULDER ARTHROSCOPY [...] betadine and band-aids t (more content not included)...[facility] HospitalComment on above:Result Comment: Electronically Signed By: Rebecca HARO, Rodger Vergara\.zari\Date and Time Signed: 04/27/24 10:11 EDTHEMATOLOGY Ordered By: SYSTEM SYSTEM on 14-90-5493Uyvsimhzb/100 WBC (Bld)1.3 %Normal0.0 - 2.0 %Remisol HemeBasophils/Leukocytes [...] - 4.0 E9/LRemisol HemeLymphocytes/100 WBC (Bld)20.4 % Znrejb74.0 - 50.0 %Remisol HemeMCH (RBC) [Entitic mass]33.7 bvYfvnyu40.0 - 34.0 pgRemisol HemeMCHC (RBC) [Mass/Vol]34.6 g/jQBazeut00.4 - 36.0 gm/dLRemisol Heme MCV (RBC) [Entitic vol]97.3 cXRnphwt78.0 - 100.0 fLRemisol HemeMonocytes (Bld) [#/Vol]0.8 E9/LNormal0.2 - 1.0 E9/LRemisol HemeMonocytes/100 WBC (Bld)19.5 %High 4.0 - 14.0 %Remisol HemeNeutrophils (Bld) [#/Vol]2.4 E9/LNormal2.0 - 7.5 E9/L Remisol HemeNeutrophils/100 WBC (Bld)55.1 %Paebsu76.0 - 75.0 %Remisol Heme Etlsnizq031.0 E9/KGikrjc082.0 - 500.0 E9/LRemisol HemePlatelet mean volume (Bld) [Entitic vol]7.0 fLNormal6.4 - 10.8 fLRemisol HemeRBC (Bld) [#/Vol]2.9 E12/LLow 4.3 - 5.9 E12/LRemisol HemeWBC corrected for nucl RBC Auto (Bld) [#/Vol]4.3 E9/L Normal4.0 - 11.0 E9/LRemisol HemeComment on above:Result Comment: Peripheral smear review performed.Inpatient Patient Summaryon 94-47-0158Oyxmrdvsp Patient SummaryInpatient Patient Summary [address] [address] [facility] Clinical Discharge Instructions PERSON INFORMATION Name: RADHA ZAIDI [facility]#:[id number] PHYSICIANS Admitting Physician: Jordan Yuan DO Attending Physician: Jordan Yuan DO PCP: JOHN ASHBY DO Discharge Diagnosis: Comment: PATIENT EDUCATION INFORMATION Instructions: Iris Yuan - After Your Shoulder Arthroscopy (Custom) Medication Leaflets: Follow up: MEDICATION LIST New Medications [facility]/pharmacy #[id number], [address], [place] [id number], [phone] acetaminophen-oxycodone (Percocet 5 mg-325 mg oral tablet) [...] 1 Tablets By Mouth every 6 hours. Comment:[facility] HospitalMain OR PACU I Recordon 49-89-9129Bbfa OR PACU I RecordMain OR PACU I Record PACU Phase I Document Type FT Summary Primary Physician: Jordan Yuan DO Finalized Date/Time: 04/27/24 11:12:00 Pt. Name: RADHA ZAIDI Levy Carrillo/Sex: 1960 Female Med Rec #: [id number] Physician: Jordan Yuan DO Financial #: [id number] Pt. Type: A Room/Bed: [place] [address] Admit/Disch: 04/27/24 05:21:12 - Institution: Case Times [...] Signatures Signed By: Ling Kathleen RN 04/27/24 11:12[facility] HospitalMain OR Preoperative Recordon 67-27-4510Rehl OR Preoperative RecordMain OR Preoperative Record PreOp Document Type FT Summary Primary Physician: Jordan Yuan DO Finalized Date/Time: 04/27/24 09:02:45 Pt. Name: ZAIDIRADHA/Sex: 1960 Female Med Rec #: [id number] Physician: Jordan Yuan DO Financial #: [id number] Pt. Type: A Room/Bed: [place] [address] Admit/Disch: 04/27/24 05:21:12 - Institution: Case Times [...] Signatures Signed By: Carli Gomez RN 04/27/24 09:02[facility] HospitalOperative Report on 59-55-2911Uqenuvwbf ReportOperative Report Patient: RADHA ZAIDI Age: 63 years Sex: Female : 1960 Associated Diagnoses: None Author: Jordan Yuan DO DATE OF SURGERY: 04/27/2024 SURGEON: Jordan Yuan D.O. DEALER COMPLIANCE REPRESENTATIVE: Jeff Marshall PREOPERATIVE DIAGNOSIS: Rotator cuff tear, [...] the greater tuberosity was cleared with the Jackson wand to improve visualization. An accessory anterosuperolateral portal was made with outside in technique using spinal needle localization. A passport cannula was placed. Soft tissuewas cleared from the lesser tuberosity with the Jackson wand. A bony bleeding bed was created with the arthroscopic bur on the reverse setting. The punch was placed to the anterior portal and used to create a socket for the corkscrew anchor at the upper portion of the lesser tuberosity. The anchor was inserted. The sutures were passed using th (more content not included)...[facility] HospitalComment on above:Result Comment: Electronically Signed By: Jordan Yuan DO\.br\Date and Time Signed: 04/27/24 15:13 EDTOutpatient Surgery Discharge Instructionon 57-78-6144Vjrlitohtl Surgery Discharge InstructionOutpatient Surgery Discharge Instruction [place] [id number] Patient Discharge Instructions PERSON INFORMATION Name: RADHA [...] Information: You may receive a survey from [employer] asking you to rate your care experience. Your feedback is important and will help us understand what we do well and how we can improve the quality of care we provide to you, your loved ones and our community. It?s an honor to serve you. Thank you for choosing [facility] HERE ARE THE MEDICATION CHANGES THAT OCCURRED DURING YOUR HOSPITAL STAY New Medications [id number], [address], [place] [id number], [phone] acetaminophen-oxycodone (Percocet 5 mg-325 mg oral tablet) [...] every 6 hours. PATIENT EDUCATION INFORMATION Instructions: [place], [place] [facility] AFTER YOUR SHOULDER ARTHROSCOPY [...] place until follow up (more content not included)...[facility] HospitalProceduralon 75-12-8361Bhsxpqvhmy Procedural Patient: RADHA ZAIDI Age: 63 years [...] Using maximal sterile barrier technique per current [facility] guidelines including hand hygeine, Guidance (Ultrasound used [...] The patient tolerated the procedure as expected.Normal [facility] SystemProceduralProcedural Patient: RADHA ZAIDI Age: 63 years Sex: [...] list: All Problems Bradycardia / SNOMED CT 95278173 / Confirmed High blood pressure / SNOMED CT 2461787890 / Confirmed 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 Family History: Primary malignant neoplasm of prostate Father Acute myocardial infarction Mother Procedure history: Total shoulder replacement ([id number]) on 04/06/2023 at 62 Years. Cervical laminectomy (0758184158). Amputation of finger (608486023). Removal of lung, Partial (24526). Open reduction and internal fixation of fracture Leg (448845437). Foot surgery (8294481035). Lumbar discectomy (689222517). Social History Social & Psychosocial Habits Alcoh (more content not included)...NormalCarolinas Continuecare Hospital At Kings Mountainer [facility] Medical CenterBasophils Auto (Bld) [#/Vol]on 77-91-7905Cwarrzvhb (Bld) [#/Vol]0.0 10 3/uL0.0-0.1 [facility] CenterBasophils/100 WBC Auto (Bld)on 03-27-2024 Basophils/100 WBC (Bld)0.7 %0.2-2.0[facility] Eosinophils/100 WBC Auto (Bld)on 50-15-4221Hndwaddanqz/100 WBC (Bld)2.0 %0.9-7.0 [facility] CenterErythrocyte distribution width Auto (RBC) [Ratio]on 89-22-0159Lukbeayjtob distribution width (RBC) [Ratio]14.7 %11.0-15.0 [facility] CenterHematocrit Auto (Bld) [Volume fraction]on 33-65-2662Tqgzmbptcs (Bld) [Volume fraction]30.8 %Low36.0-48.0[facility] CenterHemoglobin [Mass/volume] in Bloodon 91-79-1252Mkejxhlrfb (Bld) [Mass/Vol]10.0 g/dLLow12.0-16.0[facility] CenterLaboratory - Chemistry and Chemistry - challengeon 27-49-0906Prxkxxlyf (Vitamin B12) [Mass/Vol]172 pg/gFMoxmvirt594-9985BnchflbnzDayton Va Medical CenterComment on above:Performed at: - [facility] [id number] Director: Lito Matamoros PhD, Phone: [phone] - Hematology and Cell countson 75-86-4681Fecjhhdg granulocytes/100 WBC (Bld)0.5 %0.0-0.5FMarion HospitalLeukocytes [#/volume] corrected for nucleated erythrocytes in Blood by Automated counon 17-21-8254DBR corrected for nucl RBC Auto (Bld) [#/Vol]4.4 10 3/uL4.0-11.0[facility] Lymphocytes Auto (Bld) [#/Vol]on 44-78-8528Vzhcgpfjdrf (Bld) [#/Vol]1.9 10 3/uL 1.2-3.8[facility] CenterLymphocytes/100 WBC Auto (Bld)on 49-42-1128Hwsbctqjcca/100 WBC (Bld)42.3 %20.5-60.0[facility], [facility] ShawH Auto (RBC) [Entitic mass]on 19-44-8256XYX (RBC) [Entitic mass]31.9 pg 26.7-34.0[facility] CenterMCHC Auto (RBC) [Mass/Vol]on 03-61-6588QWEY (RBC) [Mass/Vol]32.5 g/dL29.9-35.2FMarion HospitalMCV Auto (RBC) [Entitic vol]on 39-71-2594CSF (RBC) [Entitic vol]98.4 fL 81.0-99.0[facility] CenterMonocytes Auto (Bld) [#/Vol]on 68-14-8551Cuzkqndeh (Bld) [#/Vol]0.6 10 3/uL0.3-0.8[facility] CenterMonocytes/100 WBC Auto (Bld)on 66-87-7874Klghinkeq/100 WBC (Bld)12.7 %High 1.7-12.0[facility] CenterNeutrophils Auto (Bld) [#/Vol]on 46-45-8540Zhtitselngu (Bld) [#/Vol]1.8 10 3/uL1.4-6.5FMarion HospitalNeutrophils/100 WBC Auto (Bld)on 95-12-9017Bfcdwcnuzlm/100 WBC (Bld)41.8 % Low43.0-75.0[facility] CenterNo Panel Informationon 03-27-2024 Eosinophils # (Auto)0.1 10 3/uL0.0-0.7FMarion HospitalFolate 14.00 ng/mL8.60-58.90[facility] CenterImmature Granulocyte # (Auto)0.02 10 3/uL0.00-0.03[facility] CenterPlatelet mean volume Auto (Bld) [Entitic vol]on 31-49-5392Lodpxxwg mean volume (Bld) [Entitic vol] 9.3 fLLow9.5-13.5FMarion HospitalPlatelets Auto (Bld) [#/Vol]on 68-14-3027Eqfebramk (Bld) [#/Vol]235 10 3/qD864-534LbkqdzvixDayton Va Medical CenterRBC Auto (Bld) [#/Vol]on 52-70-5193SDJ (Bld) [#/Vol]3.13 10 6/uLLow 4.20-5.40[facility] CenterReticulocytes/100 RBC Auto (Bld)on 58-23-1452Pbxlmhwscpdko/100 RBC (Bld)2.37 %0.60-3.10[facility] Hospital Daytonerum or plasma methylmalonate measurement (moles/volume)on 03-27-2024 Methylmalonate [Moles/Vol]195 nmol/L0-378[facility] Comment on above:This test was developed and its performance characteristicsdetermined by [employer]. It has not been cleared orapproved by the Food and Drug Administration.Performed at: [address] [id number] Director: Goldy Aparicio MD, Phone: [phone] Chest 2 Viewson 30-73-7190SA Chest 2 ViewsExam Date/Time: 03/19/2024 12:57 EDT [...] Ka,r in mGy = na DAP = naNormalAdena Health SystemBMPon 43-89-5833Fywea gap [Moles/Vol]9 mmol/LNormal6-16A[facility] Health SystemComment on above:Performed By: #### [id number] #### [facility] [address], [place] [address]Zqbtxsm [Mass/Vol]9.1 mg/dLNormal8.9-11.1FTriHealth Bethesda North HospitalComment on above:Performed By: #### [id number] #### [facility] [address], [place] [address]Kafhcewz [Moles/Vol]109 mmol/DJievae655-931UnoypcAdena Health SystemComment on above:Performed By: #### [id number] #### [facility] [address], [place] [address]PZ7 [Moles/Vol]27 mmol/BKlslfo68-77RqynyvAdena Health System Comment on above:Performed By: #### [id number] #### [facility] [address], [place] [address]Tczhiltgfg [Mass/Vol]1.1 mg/dLNormal0.5-1.3FTriHealth Bethesda North HospitalComment on above:Performed By: #### [id number] #### [facility] [address], [place] [address]Pkqmlvx [Mass/Vol]85 mg/wCJdohie96-261UotosqAdena Health SystemComment on above:Performed By: #### [id number] #### [facility] [address], [place] [address]Nhmdkhflf [Moles/Vol]3.8 mmol/LNormal3.5-5.3FTriHealth Bethesda North HospitalComment on above:Performed By: #### [id number] #### [facility] [address], [place] [address]Uoaale [Moles/Vol]141 mmol/ULpghyh611-031QixxbqAdena Health SystemComment on above:Performed By: #### [id number] #### [facility] [address], [place] [address]Trfn nitrogen [Mass/Vol]17 mg/dLNormal5-21A[facility] Health SystemComment on above:Performed By: #### [id number] #### [facility] [address] [place] [address]Lypx nitrogen/Creatinine [Mass ratio]16 No VcuedZzpzrv71-68 [facility] SystemComment on above:Performed By: #### [id number] #### [facility] [address] [place] [address]NPD w/ Auto Diffon 13-44-0901Mwcictarq/100 WBC (Bld)0.6 %Normal 0.0-2.0A[facility] Health SystemComment on above:Performed By: #### [id number] #### [facility] [address], [place] [address]Nydzsfimr/Leukocytes Auto (Bld) [Pure # fraction]0.0 E9/LNormal 0.0-0.2FTriHealth Bethesda North HospitalComment on above:Performed By: #### [id number] #### [facility] [address] [place] [address]Gejphutjthk (Bld) [#/Vol]0.1 E9/LNormal0.0-0.5FTriHealth Bethesda North HospitalComment on above:Performed By: #### [id number] #### [facility] [address] [place] [address] 92808Oncryhrtgxm/100 WBC (Bld)1.6 %Normal0.0-8.0[facility] Health SystemComment on above:Performed By: #### [id number] #### [facility] [address] [place] [address]84[address]Sjotigzfpde distribution width (RBC) [Ratio]14.7 %High10.9-14.2 [facility] SystemComment on above:Performed By: #### [id number] #### [facility] [address] [place] [address] 27553Ixnxrtpplq (Bld) [Volume fraction]27.9 %Low34.0-46.0[facility] Health SystemComment on above:Performed By: #### [id number] #### [facility] [address] [place] [address] 62009Qqxjyeziir (Bld) [Mass/Vol]9.8 g/dLLow12.0-16.0[facility] Health SystemComment on above:Performed By: #### [id number] #### [facility] [address] [place] [address] 80655Oyjgoemtphp (Bld) [#/Vol]1.1 E9/LNormal1.0-4.0[facility] SystemComment on above:Performed By: #### [id number] #### [facility] [address] [place] [address] 00676Osdyieblvjg/100 WBC (Bld)28.9 %Nhdijm17.0-50.0[facility] Health SystemComment on above:Performed By: #### [id number] #### [facility] [address] [place] [address] 16594RMP (RBC) [Entitic mass]33.8 cvSmguuj86.0-34.0[facility] Health SystemComment on above:Performed By: #### [id number] #### [facility] [address] [place] [address] 76335ISFM (RBC) [Mass/Vol]35.1 g/uSIpgmfj07.4-36.0[facility] SystemComment on above:Performed By: #### [id number] #### [facility] [address] [place] [address] 50419TVI (RBC) [Entitic vol]96.2 iLBuzgah81.0-100.0[facility] Health SystemComment on above:Performed By: #### [id number] #### [facility] [address] [place] [address] 10315Opwrztqlh (Bld) [#/Vol]0.6 E9/LNormal0.2-1.0[facility] SystemComment on above:Performed By: #### [id number] #### [facility] [address] [place] [address] 21568Zdqhukglwwm (Bld) [#/Vol]2.0 E9/LNormal2.0-7.5FTriHealth Bethesda North HospitalComment on above:Performed By: #### [id number] #### [facility] [address] [place] [address]75Mimaugvvksw/100 WBC (Bld)52.8 %Utleyd07.0-75.0[facility] Health SystemComment on above:Performed By: #### [id number] #### [facility] [address] [place] [address] 064[address]Segmvrpz617.0 E9/LYmtlsa465.0-500.0[facility] Comment on above:Performed By: #### [id number] #### [facility] [address] [place] [address] 46852Duvqhyim mean volume (Bld) [Entitic vol]7.0 fLNormal6.4-10.8 [facility] SystemComment on above:Performed By: #### [id number] #### [facility] [address], [place] [address]JVR (Bld) [#/Vol]2.9 E12/LLow4.3-5.9[facility] Comment on above:Performed By: #### [id number] #### [facility] [address], [place] [address]TAQ corrected for nucl RBC Auto (Bld) [#/Vol]3.8 E9/LLow 4.0-11.0[facility] Health SystemComment on above:Result Comment: Peripheral smear review performed.Performed By: #### [id number] #### [facility] [address], [place] [address]PCBOYOPHGDbfdtxp By: SYSTEM SYSTEM on 36-87-4055Tgnun gap [Moles/Vol]9 mmol/LNormal6 - 16 mEq/LRemisol ChemCalcium [Mass/Vol]9.1 mg/dL Normal8.9 - 11.1 mg/dLRemisol ChemChloride [Moles/Vol]109 mmol/CFzuqcx548 - 111 mmol/LRemisol ChemCO2 [Moles/Vol]27 mmol/AYyxxsh01 - 31 mmol/LRemisol Chem Creatinine [Mass/Vol]1.1 mg/dLNormal0.5 - 1.3 mg/dLRemisol QlhjyEZC41 mL/min/1.73 m2Low>=59mL/min/1.73 s1Xsxsggo ChemGlucose [Mass/Vol]85 mg/dLNormal 55 - 199 mg/dLRemisol ChemPotassium [Moles/Vol]3.8 mmol/LNormal3.5 - 5.3 mmol/L Remisol ChemSodium [Moles/Vol]141 mmol/QXkwgdl179 - 145 mmol/LRemisol ChemUrea nitrogen [Mass/Vol]17 mg/dLNormal5 - 21 mg/dLRemisol ChemUrea nitrogen/Creatinine [Mass ratio]16 mg/joFwauqo74 - 20Remisol ChemHEMATOLOGY Ordered By: SYSTEM SYSTEM on 33-25-8955Dyodrvcgh/100 WBC (Bld)0.6 %Normal0.0 - 2.0 %Remisol HemeBasophils/Leukocytes [...] - 4.0 E9/LRemisol HemeLymphocytes/100 WBC (Bld)28.9 % Qskbhd35.0 - 50.0 %Remisol HemeMCH (RBC) [Entitic mass]33.8 mwExzjhx80.0 - 34.0 pgRemisol HemeMCHC (RBC) [Mass/Vol]35.1 g/zOKxrapc55.4 - 36.0 gm/dLRemisol Heme MCV (RBC) [Entitic vol]96.2 zBYiujxv24.0 - 100.0 fLRemisol HemeMonocytes (Bld) [#/Vol]0.6 E9/LNormal0.2 - 1.0 E9/LRemisol HemeMonocytes/100 WBC (Bld)16.1 %High 4.0 - 14.0 %Remisol HemeNeutrophils (Bld) [#/Vol]2.0 E9/LNormal2.0 - 7.5 E9/L Remisol HemeNeutrophils/100 WBC (Bld)52.8 %Qokmam85.0 - 75.0 %Remisol Heme Tehaiiqr228.0 E9/JAlrbff816.0 - 500.0 E9/LRemisol HemePlatelet mean volume (Bld) [Entitic vol]7.0 fLNormal6.4 - 10.8 fLRemisol HemeRBC (Bld) [#/Vol]2.9 E12/LLow 4.3 - 5.9 E12/LRemisol HemeWBC corrected for nucl RBC Auto (Bld) [#/Vol]3.8 E9/L Low4.0 - 11.0 E9/LRemisol HemeComment on above:Result Comment: Peripheral smear review performed.eGFRon 15-33-4481tNJW84 mL/min/1.73 m2Low>=59[facility] Medical CenterComment on above:Order Comment: Order added by Discern Expert. Performed By: #### [id number] #### [facility] [address], [place] [address]Cuvdutziz Auto (Bld) [#/Vol]on 66-43-8533Mkytixrrb (Bld) [#/Vol]0.0 10 3/uL0.0-0.1FMarion HospitalBasophils/100 WBC Auto (Bld)on 84-83-6221Kytbhbdvc/100 WBC (Bld)0.8 %0.2-2.0[facility] CenterEosinophils/100 WBC Auto (Bld)on 10-82-0561Mjuydfmhgqm/100 WBC (Bld)1.5 % 0.9-7.0[facility] CenterErythrocyte distribution width Auto (RBC) [Ratio]on 42-70-0982Wfxdviwqitp distribution width (RBC) [Ratio]15.1 %High 11.0-15.0[facility] CenterHematocrit Auto (Bld) [Volume fraction]on 29-99-7004Ngwsjceuls (Bld) [Volume fraction]35.4 %Low36.0-48.0 [facility] CenterHemoglobin [Mass/volume] in Bloodon 02-14-2024 Hemoglobin (Bld) [Mass/Vol]11.0 g/dLLow12.0-16.0[facility] CenterIron binding capacity [Mass/volume] in Serum or Plasmaon 76-34-2171Hzno binding capacity [Mass/Vol]303.0 ug/dL250.0-450.0[facility] CenterIron saturation [Mass Fraction] in Serum or Plasmaon 57-62-4447Tudw saturation [Mass fraction]81.2 %[facility] CenterLaboratory - Chemistry and Chemistry - challengeon 38-12-2172Xjahprkcm (Vitamin B12) [Mass/Vol]225.0 pg/mL193.0-986.0[facility] CenterFerritin [Mass/Vol]338.0 ng/mLHigh8.0-252.0[facility] CenterIron [Mass/Vol]246.0 ug/fGXzts50.0-170.0[facility] CenterLaboratory - Hematology and Cell countson 94-37-2033Ciokeqtu granulocytes/100 WBC (Bld)0.8 % High0.0-0.5FMarion HospitalLeukocytes [#/volume] corrected for nucleated erythrocytes in Blood by Automated counon 81-36-9861ZPA corrected for nucl RBC Auto (Bld) [#/Vol]4.7 10 3/uL4.0-11.0[facility] Lymphocytes Auto (Bld) [#/Vol]on 74-09-9776Qymnwkabdar (Bld) [#/Vol]2.3 10 3/uL 1.2-3.8[facility] CenterLymphocytes/100 WBC Auto (Bld)on 76-89-9482Fesksvjupzq/100 WBC (Bld)48.7 %20.5-60.0[facility] Auto (RBC) [Entitic mass]on 78-96-3345BFX (RBC) [Entitic mass]31.9 pg 26.7-34.0[facility] CenterMCHC Auto (RBC) [Mass/Vol]on 63-08-8713UFGT (RBC) [Mass/Vol]31.1 g/dL29.9-35.2FMarion HospitalMCV Auto (RBC) [Entitic vol]on 99-94-8763AOD (RBC) [Entitic vol]102.6 fL High81.0-99.0[facility] CenterMonocytes Auto (Bld) [#/Vol]on 41-05-8378Uxpqtkhyd (Bld) [#/Vol]0.6 10 3/uL0.3-0.8[facility] CenterMonocytes/100 WBC Auto (Bld)on 93-29-4688Aumkiaeim/100 WBC (Bld)13.3 %High 1.7-12.0[facility] CenterNeutrophils Auto (Bld) [#/Vol]on 20-90-7246Tunwmtfnrkn (Bld) [#/Vol]1.7 10 3/uL1.4-6.5FMarion HospitalNeutrophils/100 WBC Auto (Bld)on 33-41-1160Cdubmxtzbzg/100 WBC (Bld)34.9 % Low43.0-75.0[facility] CenterNo Panel Informationon 02-14-2024 Eosinophils # (Auto)0.1 10 3/uL0.0-0.7FMarion HospitalImmature Granulocyte # (Auto)0.04 10 3/uLHigh0.00-0.03[facility] Folate9.40 ng/mL8.60-58.90[facility] CenterPlatelet mean volume Auto (Bld) [Entitic vol]on 46-05-0280Hmyaqtfh mean volume (Bld) [Entitic vol]9.1 fLLow9.5-13.5FMarion HospitalPlatelets Auto (Bld) [#/Vol]on 36-58-2644Kkyxhbadt (Bld) [#/Vol]197 10 3/dS002-868LchkdvvijDayton Va Medical CenterRBC Auto (Bld) [#/Vol]on 86-10-8273FSE (Bld) [#/Vol]3.45 10 6/uLLow 4.20-5.40[facility] CenterBasophils Auto (Bld) [#/Vol]on 24-82-4743Fdskommyy (Bld) [#/Vol]0.0 10 3/uL0.0-0.1FMarion HospitalBasophils/100 WBC Auto (Bld)on 47-82-4875Sgjesmjfd/100 WBC (Bld)0.8 % 0.2-2.0[facility] CenterEosinophils/100 WBC Auto (Bld)on 87-73-4976Nctxlmzarse/100 WBC (Bld)2.1 %0.9-7.0[facility] Erythrocyte distribution width Auto (RBC) [Ratio]on 23-83-3682Rscyepztede distribution width (RBC) [Ratio]14.2 %11.0-15.0[facility] Estimated glomerular filtration rate (GFR) non- Americanon 02-02-2024 GFR/1.73 sq M.predicted among non-blacks MDRD (S/P/Bld) [Vol rate/Area]51 mL/min/{1.73_m2}Low>=60[facility] CenterGlobulin Calc (S) [Mass/Vol]on 83-85-4780Zpowsuil (S) [Mass/Vol]2.9 g/dLDayton Va Medical CenterHematocrit Auto (Bld) [Volume fraction]on 20-49-1208Bmzlghrpvm (Bld) [Volume fraction]31.9 %Low36.0-48.0[facility] CenterHemoglobin [Mass/volume] in Bloodon 85-12-9826Dltxjjscyf (Bld) [Mass/Vol]10.2 g/dLLow 12.0-16.0[facility] CenterLaboratory - Chemistry and Chemistry - challengeon 13-82-5208Efohmjp [Mass/Vol]3.9 g/dL3.4-5.0[facility] CenterALP [Catalytic activity/Vol]48 U/J69-631YwlmfxanuDayton Va Medical CenterALT [Catalytic activity/Vol]20 U/U71-63EntivedizDayton Va Medical Center AST [Catalytic activity/Vol]23 U/U08-96GvqkatroyDay[facility] Va Medical Center Bilirubin [Mass/Vol]0.5 mg/dL0.2-1.0[facility] CenterCalcium [Mass/Vol]9.1 mg/dL8.5-10.1FMarion HospitalChloride [Moles/Vol] 108 mmol/HXqox85-110MrjpdsjuwDayton Va Medical CenterCO2 [Moles/Vol]24.8 mmol/L 21.0-32.0[facility] CenterCreatinine [Mass/Vol]1.09 mg/dLHigh 0.55-1.02[facility] CenterGFR/1.73 sq M.predicted MDRD (S/P/Bld) [Vol rate/Area]mL/min/{1.73_m2}>=60[facility] CenterGlucose [Mass/Vol]87 mg/lB80-677XqqgjazckDayton Va Medical CenterPotassium [Moles/Vol] 3.9 mmol/L3.5-5.1FMarion HospitalProtein [Mass/Vol]6.8 g/dL 6.4-8.2FOhioHealth O'Bleness Hospitalodium [Moles/Vol]144 mmol/P357-695 [facility] CenterUrea nitrogen [Mass/Vol]17.0 mg/dL7.0-18.0 [facility] CenterUrea nitrogen/Creatinine [Mass ratio]15.6 mg/mg [facility] CenterLaboratory - Hematology and Cell countson 96-95-1494GLW (Bld) [Velocity]12 mm/h<=30[facility] Immature granulocytes/100 WBC (Bld)0.5 %0.0-0.5FMarion Hospital Leukocytes [#/volume] corrected for nucleated erythrocytes in Blood by Automated counon 79-59-4583XHF corrected for nucl RBC Auto (Bld) [#/Vol]3.8 10 3/uLLow 4.0-11.0[facility] CenterLymphocytes Auto (Bld) [#/Vol]on 92-36-0756Lzzsiatwdej (Bld) [#/Vol]1.5 10 3/uL1.2-3.8[facility] CenterLymphocytes/100 WBC Auto (Bld)on 12-56-7068Eukdffhbrth/100 WBC (Bld)40.3 % 20.5-60.0[facility] CenterMCH Auto (RBC) [Entitic mass]on 31-82-0771USI (RBC) [Entitic mass]31.7 pg26.7-34.0[facility] CenterMCHC Auto (RBC) [Mass/Vol]on 72-72-4539XQQH (RBC) [Mass/Vol]32.0 g/dL 29.9-35.2FMarion HospitalMCV Auto (RBC) [Entitic vol]on 53-92-5860BOU (RBC) [Entitic vol]99.1 uFFqmw32.0-99.0[facility] CenterMonocytes Auto (Bld) [#/Vol]on 63-54-4922Sbkocksrn (Bld) [#/Vol]0.6 10 3/uL0.3-0.8[facility] CenterMonocytes/100 WBC Auto (Bld)on 34-46-3670Jughkmeob/100 WBC (Bld)16.1 %High1.7-12.0[facility] CenterNeutrophils Auto (Bld) [#/Vol]on 96-55-2352Hxlhxbpoiye (Bld) [#/Vol]1.5 10 3/uL1.4-6.5FMarion HospitalNeutrophils/100 WBC Auto (Bld)on 30-00-0928Sarjhriekms/100 WBC (Bld)40.2 %Low43.0-75.0[facility] CenterNo Panel Informationon 15-65-0574Agnvmwlepts # (Auto)0.1 10 3/uL0.0-0.7 [facility] CenterImmature Granulocyte # (Auto)0.02 10 3/uL 0.00-0.03[facility] CenterPlatelet mean volume Auto (Bld) [Entitic vol]on 56-95-6065Fkqwxydh mean volume (Bld) [Entitic vol]9.3 fLLow 9.5-13.5FMarion HospitalPlatelets Auto (Bld) [#/Vol]on 68-82-1669Kjpsceoyg (Bld) [#/Vol]236 10 3/iN600-530UrgyqolszDayton Va Medical CenterRBC Auto (Bld) [#/Vol]on 74-05-8630DFA (Bld) [#/Vol]3.22 10 6/uLLow 4.20-5.40[facility] Hospital Daytonerum or plasma albumin/globulin mass ratioon 15-78-3345Enzhcvr/Globulin [Mass ratio]1.3 {ratio}[facility] Daytonerum or plasma anion gap determinationon 46-61-6731Jcitf gap [Moles/Vol]15.1 mmol/LFMarion HospitalXR Shoulder - right 2 Viewson 38-81-8076Rxcsrbw Result: 4 views right shoulder, Grashey/Zanca/outlet/axillary, taken today and saved to the permanent medical record. Prosthesis is unchanged in position and alignment. Fracture at the base of the acromion unchanged in appearance.[facility]HRMCXR Shoulder - right 2 Viewson 78-54-0271Xafgyjtwp Study observation (narrative)[facility] UPPER EXTREMITY W/O CONTRAST RIGHTon 09-08-2023 Exam [...] Fields MD Transcribed by: DANISHA Technologist: [facility]ER[facility], Radiologist, - 09/08/2023 Exam Date/Time: 09/06/2023 17:13 [...] MD Transcribed by: DANISHA Technologist: ARNUL[facility] DORSE[facility] HealthcareIL UPPER EXTREMITY W/O CONTRAST RIGHTOrdered By: Radiologist Radiology on 93-29-2544BSDR [place] Work Phone: ct Upper Extremity w/o Contrast Righton 31-06-7870XG Upper Extremity w/o Contrast RightExam Date/Time: 09/06/2023 [...] Coleman Fields MD Transcribed by: DANISHA Technologist: [facility] LAB MISCELLANEOUS-LCon 90-52-0599GXKX LAB MISCELLANEOUSCOMMENTSaint John's Saint Francis HospitalComment on above:Test Ordered: [id number] Interleukin-6, Serum Interleukin-6, Serum <2.5 pg/mL Reference [...] endotracheal intubation or mechanical ventilation. Performed at: [facility] [id number] PhD Saturnino Morse [facility] [place] TEST [id number] Health TEST NAMEinterleukin [address] [place] [address] Original Ordering Provider: DO Jordan Roth [facility] Miscellaneous-LCon 63-09-3359Cfa MiscellaneousCOMMENTInvalid Interpretation Code [facility] SystemComment on above:Result Comment: Test Ordered: [id number] Interleukin-6, Serum Interleukin-6, Serum <2.5 pg/mL Reference [...] endotracheal intubation or mechanical ventilation. Performed at: [address] [id number] PhD Saturnino MorsePerformed By: #### [id number] ####[facility] [address] [place], [place]CBC w/ Auto Diffon 12-16-9824Pobwukho Absolute0.0 E9/LNormal0.0-0.2[facility] Comment on above:Performed By: #### [id number], [id number], [id number] #### [facility] [address], [place] [address]Dsfajqmzg/100 WBC (Bld)0.4 %Normal0.0-2.0FishThomas B. Finan CenterComment on above:Performed By: #### [id number], [id number], [id number] #### [facility] [address], [place] [address]Gjo Absolute0.0 E9/LNormal0.0-0.5FTriHealth Bethesda North Hospital Comment on above:Performed By: #### [id number], [id number], [id number] #### [facility] [address] [place] [address] 13850Dvlrkibdnev/100 WBC (Bld)0.2 %Normal0.0-8.0[facility] SystemComment on above:Performed By: #### [id number], [id number], [id number] #### [facility] [address] [place] [address] 17250Kzacfdudqim distribution width (RBC) [Ratio]14.3 %High10.9-14.2 [facility] SystemComment on above:Performed By: #### [id number], [id number], [id number] #### [facility] [address] [place] [address] 42152Ideojrshjg (Bld) [Volume fraction]40.0 %Nsrnpp45.0-46.0[facility] SystemComment on above:Performed By: #### [id number], [id number], [id number] #### [facility] [address] [place] [address] 35112Fykkxfiahp (Bld) [Mass/Vol]12.7 g/eBRvamor10.0-16.0[facility] SystemComment on above:Performed By: #### 6121035, 4482625, [id number] #### [facility] [address] [place] [address] 95336Hdjdg Absolute0.9 E9/LLow1.0-4.0[facility] Comment on above:Performed By: #### [id number], 5270052, [id number] #### [facility] [address] [place] [address] 64180Bdajzfgvnwq/100 WBC (Bld)25.2 %Wpzncm98.0-50.0[facility] SystemComment on above:Performed By: #### [id number], 6622052, [id number] #### [facility] [address], [place] [address]SAH (RBC) [Entitic mass]30.6 koUbrivx40.0-34.0[facility] SystemComment on above:Performed By: #### [id number], [id number], [id number] #### [facility] [address] [place], [place] [address]HC (RBC) [Mass/Vol]31.7 g/vGJjmrqp92.4-36.0[facility] SystemComment on above:Performed By: #### [id number], 4102725, [id number] #### [facility] [address] [place], [place] [address]V (RBC) [Entitic vol]96.5 fFPxyamy82.0-100.0[facility] SystemComment on above:Performed By: #### 7502484, 8853062, [id number] #### [facility] [address] [place] [address] 49285Lnys Absolute0.3 E9/LNormal0.2-1.0[facility] Comment on above:Performed By: #### [id number], 6443781, [id number] #### [facility] [address] [place] [address] 84331Pveqifzhs/100 WBC (Bld)7.3 %Normal4.0-14.0[facility] SystemComment on above:Performed By: #### [id number], 4172820, [id number] #### [facility] [address] [place] [address] 57763Dvqrsp Absolute2.3 E9/LNormal2.0-7.5FTriHealth Bet[facility]da [facility] Hospital Comment on above:Performed By: #### 6250420, 1029429, [id number] #### [facility] [address] [place] [address] 48815Sgiyhb Auto66.9 %Tgucrg12.0-75.0[facility] Comment on above:Performed By: #### 5158877, 4598067, [id number] #### [facility] [address], [place] [address]Ajicuzik385.0 E9/YAzvppi139.0-500.0[facility] Comment on above:Performed By: #### 8360390, 9090636, [id number] #### [facility] [address] [place] [address] 07016Rhohoxxu mean volume (Bld) [Entitic vol]7.4 fLNormal6.4-10.8 [facility] SystemComment on above:Performed By: #### [id number], [id number], [id number] #### [facility] [address] [place] [address] 83477UTW9.1 E12/LLow4.3-5.9[facility] SystemComment on above:Performed By: #### 7574861, 8250869, [id number] #### [facility] [address] [place] [address] 77655WDV5.4 E9/LLow4.0-11.0[facility] SystemComment on above:Performed By: #### [id number] #### [facility] [address] [place] [address] [id number] By: SYSTEM SYSTEM on 67-81-8799UWMgq/dLNormal <=1.9mg/dLRemisol ChemCRPon 59-92-8921TUB [Mass/Vol]mg/LNormal<=1.9[facility] SystemComment on above:Performed By: #### [id number] #### [facility] [address] [place] [address] [id number] UPPER EXTREMITY W/O CONTRAST RIGHTon 36-22-0691Cblyzktsq Study observation (narrative)[facility]Cons[facility] Treatmenton [facility]23 Consent for [id number]#1.00TIFFNormal [facility] SystemHEMATOLOGYOrdered By: SYSTEM SYSTEM on 09-06-2023 Basophil Absolute0.0 E9/LNormal0.0 - 0.2 E9/LRemisol HemeBasophils/100 WBC (Bld) 0.4 %Normal0.0 - 2.0 %Remisol HemeEos Absolute0.0 E9/LNormal0.0 - 0.5 E9/L Remisol HemeEosinophils/100 WBC (Bld)0.2 %Normal0.0 - 8.0 %Remisol Heme Erythrocyte distribution width (RBC) [Ratio]14.3 %High10.9 - 14.2 %Remisol Heme Hematocrit (Bld) [Volume fraction]40.0 %Obdqvk84.0 - 46.0 %Remisol Heme Hemoglobin (Bld) [Mass/Vol]12.7 g/sCCjnoya28.0 - 16.0 gm/dLRemisol HemeLymph Absolute0.9 E9/LLow1.0 - 4.0 E9/LRemisol HemeLymphocytes/100 WBC (Bld)25.2 % Ltfbdk53.0 - 50.0 %Remisol HemeMCH (RBC) [Entitic mass]30.6 bqNhlppg60.0 - 34.0 pgRemisol HemeMCHC (RBC) [Mass/Vol]31.7 g/fZTlnbpd88.4 - 36.0 gm/dLRemisol Heme MCV (RBC) [Entitic vol]96.5 pZHqmcpv76.0 - 100.0 fLRemisol HemeMono Absolute0.3 E9/LNormal0.2 - 1.0 E9/LRemisol HemeMonocytes/100 WBC (Bld)7.3 %Normal4.0 - 14.0 %Remisol HemeNeutro Absolute2.3 E9/LNormal2.0 - 7.5 E9/LRemisol HemeNeutro Auto 66.9 %Pxxhkx61.0 - 75.0 %Remisol AnwwFvzanujv616.0 E9/AAplxpx987.0 - 500.0 E9/L Remisol HemePlatelet mean volume (Bld) [Entitic vol]7.4 fLNormal6.4 - 10.8 fL Remisol HemeRBC4.1 E12/LLow4.3 - 5.9 E12/LRemisol HemeWBC3.4 E9/LLow4.0 - 11.0 E9/LRemisol HemeHEMATOLOGYOrdered By: Petr Mack on 96-84-0739CLW (Bld) [Velocity]14 mm/hNormal0 - 34 mm/hrFT HemeAutoSSLab Miscellaneous-LCon 17-84-2496Muqn [id number] Interpretation [facility] Comment on above:Performed By: #### [id number] ####[facility] [facility] Uftlmhjihr[address] TremayneSA[place], [place]Lepo Nameinterleukin 6Invalid Interpretation [facility] SouthComment on above:Performed By: #### [id number] ####Yasmani [facility] Aakadgzznq9[address] Rodriguezcatskill regional medical centerolvinSAINT [place], [place]Yzbtdfffu Orderon 04-91-4170Jkztxfrhl Order [id number]#1.00TIFMercy Health Clermont HospitalReference Laboratory TestingOrdered By: Jojo Gonsales on 36-44-9065Qlfv [id number] 1Invalid Interpretation [facility] SendOutsSSTest Nameinterleukin 6 Invalid Interpretation [facility] SendOutsSSSed Rate Automatedon 42-80-8144BEO (Bld) [Velocity]14 mm/hNormal0-34Adena Health SystemComment on above: Performed By: #### [id number], [id number], [id number] #### Yasmani [facility] Laboratory [address] DoshiSA[place], [place] [address]Scseclywb Orderon 45-31-4444Wcxkwzfmy Order [id number]#1.00[facility] HospitalBasophils Auto (Bld) [#/Vol]on 17-75-1866Xozyukbvq (Bld) [#/Vol]0.0 10 3/uL0.0-0.1FMarion HospitalBasophils/100 WBC Auto (Bld)on 90-01-6948Dplnvecpm/100 WBC (Bld)0.8 %0.2-2.0[facility] Cholesterol in LDL Calc [Mass/Vol]on 51-36-0055Vftkarwsgth in LDL [Mass/Vol] 152.0 mg/dLDayton Va Medical CenterComment on above:<100 mg/dl CDDMELA437-123 mg/dl NEAR OR ABOVE AXTOWLX916-595 mg/dl BORDERLINE MOVL560-535 mg/dl HIGH>190 mg/dl VERY HIGHCholesterol in VLDL Calc [Mass/Vol]on 08-30-2023 Cholesterol in VLDL [Mass/Vol]20.2 mg/dLDayton Va Medical Center Eosinophils/100 WBC Auto (Bld)on 16-16-6944Htimzcqoakw/100 WBC (Bld)4.2 %0.9-7.0 [facility] CenterErythrocyte distribution width Auto (RBC) [Ratio]on 88-73-6252Apggelpfaja distribution width (RBC) [Ratio]13.4 %11.0-15.0 [facility] CenterEstimated glomerular filtration rate (GFR) non- Americanon 26-48-4711SDH/1.73 sq M.predicted among non-blacks MDRD (S/P/Bld) [Vol rate/Area]59 mL/min/{1.73_m2}>=60[facility] CenterGlobulin Calc (S) [Mass/Vol]on 48-77-2212Dyjqdlfh (S) [Mass/Vol]3.4 g/dL [facility] CenterHematocrit Auto (Bld) [Volume fraction]on 85-15-1074Cnifxnveve (Bld) [Volume fraction]39.5 %36.0-48.0[facility] CenterHemoglobin [Mass/volume] in Bloodon 20-34-9372Ufmzqijytc (Bld) [Mass/Vol]12.5 g/dL12.0-16.0[facility] CenterLaboratory - Chemistry and Chemistry - challengeon 14-56-4033Hcdrcpy [Mass/Vol]3.7 g/dL 3.4-5.0[facility] CenterALP [Catalytic activity/Vol]45 U/L46-116 [facility] CenterALT [Catalytic activity/Vol]23 U/L14-59 [facility] CenterAST [Catalytic activity/Vol]21 U/L15-37 [facility] CenterBilirubin [Mass/Vol]0.4 mg/dL0.2-1.0[facility] CenterCalcium [Mass/Vol]9.0 mg/dL8.5-10.1FMarion HospitalChloride [Moles/Vol]106 mmol/B04-779PzwxbromjDayton Va Medical CenterCholesterol [Mass/Vol]246 mg/dL<=200[facility] Cholesterol in HDL [Mass/Vol]74 mg/qB62-31RggdcbixrDayton Va Medical Center Comment on above:> or =60 mg/dl - LOW CARDIOVASCULAR RISK<40 mg/dl - HIGH CARDIOVASCULAR RISKCO2 [Moles/Vol]25.5 mmol/L21.0-32.0[facility] CenterCreatinine [Mass/Vol]0.96 mg/dL0.55-1.02[facility] GFR/1.73 sq M.predicted MDRD (S/P/Bld) [Vol rate/Area]mL/min/{1.73_m2}>=60 [facility] CenterGlucose [Mass/Vol]86 mg/sT41-272YxtnqmtmyDayton Va Medical CenterPotassium [Moles/Vol]3.8 mmol/L3.5-5.1FMarion HospitalProtein [Mass/Vol]7.1 g/dL6.4-8.2FMarion Hospital Sodium [Moles/Vol]142 mmol/U600-622FwqmgwhaeDayton Va Medical CenterTriglyceride [Mass/Vol]101 mg/dL<=150Day[facility] Medical CenterTSH Qn1.531 m[IU]/L 0.358-3.740[facility] CenterUrea nitrogen [Mass/Vol]20.0 mg/dL 7.0-18.0[facility] CenterUrea nitrogen/Creatinine [Mass ratio] 20.8 mg/mgDayton Va Medical CenterLaboratory - Hematology and Cell countson 85-73-5842BBM (Bld) [Velocity]16 mm/h<=30[facility] CenterImmature granulocytes/100 WBC (Bld)0.3 %0.0-0.5FMarion HospitalLeukocytes [#/volume] corrected for nucleated erythrocytes in Blood by Automated counon 73-04-0479FDW corrected for nucl RBC Auto (Bld) [#/Vol]3.8 10 3/uL4.0-11.0[facility] CenterLymphocytes Auto (Bld) [#/Vol]on 82-63-4546Slammxcrkyi (Bld) [#/Vol]1.7 10 3/uL1.2-3.8[facility] CenterLymphocytes/100 WBC Auto (Bld)on 50-59-5220Bjxgtwopric/100 WBC (Bld)44.8 % 20.5-60.0[facility] ShawH Auto (RBC) [Entitic mass]on 53-46-8839AYZ (RBC) [Entitic mass]31.1 pg26.7-34.0[facility] CenterMCHC Auto (RBC) [Mass/Vol]on 66-54-4050PMED (RBC) [Mass/Vol]31.6 g/dL 29.9-35.2FMarion HospitalMCV Auto (RBC) [Entitic vol]on 68-86-9492WIA (RBC) [Entitic vol]98.3 fL81.0-99.0[facility] CenterMonocytes Auto (Bld) [#/Vol]on 86-35-2558Qvgdbcpwf (Bld) [#/Vol]0.5 10 3/uL0.3-0.8[facility] CenterMonocytes/100 WBC Auto (Bld)on 68-63-8622Yikpqtkdc/100 WBC (Bld)14.1 %1.7-12.0[facility] Neutrophils Auto (Bld) [#/Vol]on 23-18-0080Xudowzguxdn (Bld) [#/Vol]1.4 10 3/uL 1.4-6.5FMarion HospitalNeutrophils/100 WBC Auto (Bld)on 42-58-7247Teihlhrjobu/100 WBC (Bld)35.8 %43.0-75.0[facility] CenterNo Panel Informationon 94-82-4840Rwikdbziqcn # (Auto)0.2 10 3/uL0.0-0.7 [facility] CenterImmature Granulocyte # (Auto)0.01 10 3/uL 0.00-0.03[facility] CenterPlatelet mean volume Auto (Bld) [Entitic vol]on 67-21-1944Zmlzjzgg mean volume (Bld) [Entitic vol]9.1 fL9.5-13.5 [facility] CenterPlatelets Auto (Bld) [#/Vol]on 08-30-2023 Platelets (Bld) [#/Vol]181 10 3/cF504-398YuicljqvuDayton Va Medical CenterRBC Auto (Bld) [#/Vol]on 37-45-9319KTE (Bld) [#/Vol]4.02 10 6/uL4.20-5.40[facility] Hospital Daytonerum or plasma albumin/globulin mass ratioon 08-30-2023 Albumin/Globulin [Mass ratio]1.1 {ratio}[facility] Daytonerum or plasma anion gap determinationon 46-56-8904Rctuy gap [Moles/Vol]14.3 mmol/L [facility] Daytonerum or plasma total cholesterol/high density lipoprotein (HDL) cholesterol mass albina 42-58-5147Gxhfriuciso.total/Cholesterol in HDL [Mass ratio]3.3 {ratio}[facility] CenterComment on above:3.3 - 4.4 LOW RISK4.4 - 7.1 AVERAGE RISK7.1 - 11.0 MODERATE RISK>11.0 HIGH RISKXR Shoulder - right 2 Viewson 52-93-0571Imvikyn Result: Two views of the right shoulder; Grashey and axillary were taken today in the office are reviewed, and saved to the permanent medical record. The prosthesis is unchanged in position and alignment. There is no prosthetic loosening or failure. No scapular notching. The scapular spine appears to be intact. No obvious fractures at the coracoid process.[facility]/NHRMCXR Shoulder - right 2 Viewson 96-73-3654Krnplusdt Study observation (narrative)[facility] HOSPITALNatalie HealthcareIntraOperative Documentson 84-64-2360KdhlnHhlehyfzr [id number]#1.00CD:127NormalAdena Health SystemAuto Diffon 18-11-9878Lbkxppqey/100 WBC (Bld)0.2 %Normal0.0-2.0 [facility] Health SystemComment on above:Order Comment: Order Added by Discern Expert.Performed By: #### 0260794, 8510828, 6450490, 6016450, 62936070, 7669096 #### [facility] [address] [place] [address]Dzrzsitdz/Leukocytes Auto (Bld) [Pure # fraction]0.0 E9/LNormal 0.0-0.2Fisher [facility] CenterComment on above:Order Comment: Order Added by Discern Expert.Performed By: #### 3775000, 7042030, 3086277, 1511668, 80173366, 9915831 #### [facility] [address], [place] [address]Vdnreoztdtq/100 WBC (Bld)0.0 %Normal0.0-8.0A[facility]a Health SystemComment on above:Order Comment: Order Added by Discern Expert.Performed By: #### 6788757, 8926954, 9325060, 7778289, 92257836, 5733141 #### [facility] [address], [place] [address]Mijbazdbwbc/Leukocytes Auto (Bld) [Pure # fraction]0.0 E9/L Normal0.0-0.5Fisher [facility] CenterComment on above:Order Comment: Order Added by Discern Expert.Performed By: #### 2706513, 2067599, 9580867, 7213062, 59211931, 2080443 #### [facility] [address], [place] [address]Qcrjfwefgeo/100 WBC (Bld)7.9 %Low14.0-50.0Adena Health SystemComment on above:Order Comment: Order Added by Discern Expert.Performed By: #### 8011203, 3136858, 0141537, 1366897, 44892390, 0525487 #### [facility] [address] [place] [address]Xktclctztil/Leukocytes Auto (Bld) [Pure # fraction]0.8 E9/LLow 1.0-4.0Adena Health SystemComment on above:Order Comment: Order Added by Discern Expert.Performed By: #### 8001753, 4835440, 3450426, 8100512, 38411583, 2347882 #### [facility] [address] [place] [address]Lzkrewpbk/100 WBC (Bld)14.0 %Normal4.0-14.0A[facility] Health SystemComment on above:Order Comment: Order Added by Discern Expert.Performed By: #### 7183142, 2702914, 9795955, 8864385, 68210439, 5703219 #### [facility] [address] [place] [address]Uikziyylg/Leukocytes Auto (Bld) [Pure # fraction]1.3 E9/LHigh 0.2-1.0A[facility] Health SystemComment on above:Order Comment: Order Added by Discern Expert.Performed By: #### 3024948, 1589901, 1988286, 7919892, 12340122, 7631425 #### [facility] [address] [place] [address]Kdnyatqknig/100 WBC (Bld)77.9 %High36.0-75.0A[facility]a Health SystemComment on above:Order Comment: Order Added by Discern Expert. Performed By: #### 0549807, 4378851, 6472696, 5166056, 38419326, 1106024 #### [facility] [address] [place] [address]Wstppbfjeez/Leukocytes Auto (Bld) [Pure # fraction]7.5 E9/L Normal2.0-7.5FTriHealth Bethesda North HospitalComment on above:Order Comment: Order Added by Discern Expert.Performed By: #### 6726100, 1844754, 3582955, 4091070, 79304389, 5810440 #### [facility] [address], [place] [address]YGCcm 12-78-2933Gxng nitrogen [Mass/Vol]20 mg/dLNormal5-21 [facility] SystemComment on above:Performed By: #### 2286914, 5485904, 7485555, 0632525, 64048120, 1473961 #### [facility] [address], [place] [address]PKF w/ Auto Diffon 88-44-4320Dzaqyfmxfsg distribution width (RBC) [Ratio]14.6 %High10.9-14.2FTriHealth Bethesda North HospitalComment on above: Performed By: #### 2917068, 2010920, 8443747, 7209278, 84526317, 4626389 #### [facility] [address], [place] [address]Aeavantibb (Bld) [Volume fraction]29.7 %Low34.0-46.0A[facility] Health SystemComment on above:Performed By: #### 7756482, 2701914, 7376077, 5718483, 68523130, 9307992 #### [facility] [address], [place] [address]Sdwuzoevdp (Bld) [Mass/Vol]10.0 g/dLLow12.0-16.0A[facility] Health SystemComment on above:Performed By: #### 1106637, 9573793, 8444836, 8850386, 56453194, 0834418 #### [facility] [address], [place] [address]NPR (RBC) [Entitic mass]32.5 amFmsolc09.0-34.0A[facility] Health SystemComment on above:Performed By: #### 9257584, 2971226, 6180225, 0750869, 85546475, 1862951 #### [facility] [address], [place] [address]JFNL (RBC) [Mass/Vol]33.6 g/lGQwdymt85.4-36.0A[facility] Health SystemComment on above:Performed By: #### 9782275, 6183836, 1060752, 8449099, 77434436, 6596403 #### [facility] [address], [place] [address]OLK (RBC) [Entitic vol]96.7 tENsfteh31.0-100.0A[facility] Health SystemComment on above:Performed By: #### 5740680, 3335997, 2553657, 7655982, 06355654, 9493372 #### [facility] [address] [place] [address]Kslkdkbr mean volume (Bld) [Entitic vol]7.1 fLNormal6.4-10.8 [facility] SystemComment on above:Performed By: #### 8432474, 3257671, 2533770, 3152607, 75057741, 6618770 #### [facility] [address] [place] [address]Aqosvizuc (Bld) [#/Vol]215.0 E9/KBvlufa704.0-500.0A[facility] Health SystemComment on above:Performed By: #### 1554235, 0265126, 6237188, 0941862, 12926793, 7046845 #### [facility] [address], [place] [address]JPT (Bld) [#/Vol]3.1 E12/LLow4.3-5.9[facility] Comment on above:Performed By: #### 9736023, 3902573, 0503995, 9596105, 41723338, 5596963 #### [facility] [address] [place] [address]QBN corrected for nucl RBC Auto (Bld) [#/Vol]9.6 E9/LNormal 4.0-11.0[facility] Health SystemComment on above:Performed By: #### 3147808, 9958890, 8112704, 4202758, 98580278, 6570201 #### Gruber [facility] Laboratory [facility] [address] [place], [place] [address]OGFSSYSVVMrwzmar By: SYSTEM SYSTEM on 67-37-9396Gvrfs gap [Moles/Vol]6 mmol/LNormal6 - 16 mEq/LFTMC RemisolChloride [Moles/Vol]118 mmol/L Snop174 - 111 mmol/LFTMC RemisolCO2 [Moles/Vol]23 mmol/KVeeeoy48 - 31 mmol/LFTMC RemisolCreatinine [Mass/Vol]0.9 mg/dLNormal0.5 - 1.3 mg/dLLAKESIDE W[facility] [place] [facility] RemisolGFR/1.73 sq M.predicted among non-blacks MDRD (S/P/Bld) [Vol rate/Area]72 mL/min/1.73 m2 Normal>=59mL/min/1.73 m2[facility] [place] Chem SComment on above:Interpretive Data: Chronic kidney disease could be indicated at eGFR's of less than 60 mL/min/1.73m2. Kidney failure is indicated at less than 15 mL/min/1.73m2.Potassium [Moles/Vol] 4.0 mmol/LNormal3.5 - 5.3 mmol/LFTMC RemisolSodium [Moles/Vol]143 mmol/LNormal 135 - 145 mmol/LFTMC RemisolUrea nitrogen [Mass/Vol]20 mg/dLNormal5 - 21 mg/dL [facility] RemisolConsent for Anesthesiaon 53-80-1741Fwapgik for Anesthesia [id number]#1.00CD:127NormalAdena Health SystemCreatinineon 66-27-5819Tyknlzkenf [Mass/Vol]0.9 mg/dLNormal0.5-1.3Fisher [facility] CenterComment on above:Performed By: #### 7158632, 3621403, 8315328, 8188251, 63401957, 1841907 ####Yasmani [facility] Nqgntlbcwi[address] Rodriguezcatskill regional medical centerolvinSAINT [place], [place] [address]Kbmzzuzav Instructionson 04-07-2023 Discharge [id number]#1.00CD:127Normal Yasmani [facility] CenterDischarge Note-Nursingon 20-90-5526Iymqnpoal Note-Nursing RADHA ZAIDI :1960 Visit Date:04/06/2023 Inpatient [...] Jordan Yuan When: Where: [address] [place] [address]- Business (1) Follow Up with JOHN ASHBY When: In 0 days [facility] [address] [facility] [place] [address]- Business (1) Medications What How Much When Instructions Next Dose Changed acetaminophen-oxycodone (Percocet 5 mg-325 mg oral tablet) See instructions 1-2 tab(s) Shewa7oi Pickup at [facility]/pharmacy #6177 Next dose due after 10am Unchanged buPROPion (Wellbutrin XL 300 mg/ 24 hours Tab-ER) 1 Tablets By Mouth 2 times a day 04/07/23 @ 9pm Unchanged celecoxib (CeleBREX 100 mg Cap) 1 Capsules By Mouth 2 times a day as needed for for pain Pickup at [facility]/pharmacy #6177 04/07/23 @ 9pm Unchanged cephalexin (Keflex 500 mg Cap) 1 Capsules By Mouth Every 8 hours Duration: 7 Days Pickup at [facility]/pharmacy #6177 04/07/23 @ 2pm and bedtime Unchanged docusate (Colace 100 mg Cap) 1 Capsules By Mouth 2 times a day as needed for for constipation Pickup at [facility]/pharmacy #6177 04/07/23 @ 9pm Unchanged leflunomide [...] Every day 04/08/23 @ 9am Pharmacy Information [facility]/pharmacy #[id number]: [address], [place] [id number] [phone] Test Results CBC BMP WBC: 9.6 E9/L [...] Screw, Non-Locking, 4.5 x 28 mm, Shoulder Stizetm6604/06/2023 [employer] Modular Glenoid System, peripheral Screw, Non-Locking, 4.5 x 32 mm Shoulder Implant 04/06/2023 [employer] revers Modular Glenoid System, Peripheral Screw, Non-Locking, 5.5 x 20 mm, Shoulder Implant(2), 04/06/2023 [employer] Modular Glenoid System, Glenosphere, 36 +4 Lateralized/ 24, Shoulder Implant 04/06/2023 [employer] revers [place] humeral Stem Size 9, Shoulder Implant 04/06/2023 [employer] SutureCap, 36 neutral, shoulder Implant 04/06/2023 [employer] Humeral Insert, small, 36, +6, Shoulder (more content not included)...NormalAdena Health SystemHEMATOLOGYOrdered By: SYSTEM SYSTEM on 06-93-4814Sqkjhxdon/100 WBC (Bld)0.2 %Normal0.0 - 2.0 %[facility] HemeAutoSS [...] E9/L [facility] HemeAutoSSHEMATOLOGYOrdered By: Lizet Hall on 57-40-6671Tsmfxhqfgqt distribution width (RBC) [Ratio]14.6 %High10.9 - 14.2 %[facility] HemeAutoSSHematocrit (Bld) [Volume fraction]29.7 %Low34.0 - 46.0 %[facility] HemeAutoSSHemoglobin (Bld) [Mass/Vol]10.0 g/dLLow12.0 - 16.0 gm/dLFTMC HemeAutoSSMCH (RBC) [Entitic mass] 32.5 bmBicgrr37.0 - 34.0 pgFTMC HemeAutoSSMCHC (RBC) [Mass/Vol]33.6 g/dLNormal 31.4 - 36.0 gm/dLLAKESIDE WOM[facility] [place] [facility] HemeAutoSSMCV (RBC) [Entitic vol]96.7 rPXktccc92.0 - 100.0 fLLAKESIDE WOMEN'S [facility] [place] [facility] HemeAutoSSPlatelet mean volume (Bld) [Entitic vol]7.1 fLNormal6.4 - 10.8 fLLAKESIDE WOMEN'S HOS[facility] [place] [facility] HemeAutoSSPlatelets (Bld) [#/Vol]215.0 E9/DYhwlum932.0 - 500.0 E9/LFGREAT PLAINS [facility] [place] HemeAutoSSRBC (Bld) [#/Vol]3.1 E12/LLow4.3 - 5.9 E12/LFGREAT PLAINS REGIONAL [facility] [place] HemeAutoSSWBC corrected for nucl RBC Auto (Bld) [#/Vol]9.6 E9/LNormal4.0 - 11.0 E9/ON LICENSE OF [facility] HemeAutoSSInpatient Clinical Summaryon 86-28-4681Vhrraqvjm Clinical Summary [place] [address] Clinical Summary Person Information: Name: RADHA ZAIDI Age: 62 Years : 1960 Sex: Female PCP: JOHN ASHBY DO Marital Status: Phone: [phone] Race: White Ethnicity: Non- or Language: Yi Visit Id: Visit Reason: OA RIGHT SHOULDER Speciality: Acuity: Enc Type: Observation Med Service: Medical Arrival: 04/06/2023 06:09:55 Discharge: Dispo Type: Address: [address] [place] [address] [address] [place] [id number] Provider Notes: Patient: RADHA ZAIDI Age: 62 [...] Follow up: With: Address: When: Jordan Yuan [address] [place] [address] Business (1) 04/19/2023 2:15 PM With: Address: When: JOHN ASHBY [address] [place] [address] Business (1) Patient Education Information: Iris Yuan - Shoulder Replacement (Custom)[facility] Inpatient Patient Summaryon 98-41-8822Lvhddhjif Patient Summary [address] [address] Patient Discharge Instructions PERSON [...] Follow up: With: Address: When: Jordan Yuan [address] [place] [id number] Business (1) 04/19/2023 2:15 PM With: Address: When: JOHN ASHBY [address], [place] [id number] Business (1) In the event that this [...] to Continue Taking That Have Changed [facility], [address], [place] [id number], [phone] START: acetaminophen-oxycodone (Percocet 5 mg-325 mg oral tablet) 1-2 tab(s) Oral q4hr. Refills: 0. Last Dose: Next Dose: STOP: acetaminophen-oxycodone (Percocet 5 mg-325 mg oral tablet) 1 Tablets By Mouth 3 times a day. Medications to Continue with No Changes [facility]/pharmacy #6177, [address], [place] [id number], [phone] celecoxib (CeleBREX 100 mg Cap) 1 Capsules [...] day. Pharmacy Information: [facility] Tabitha [phone] (more content not included)...Normal [facility] Health SystemIntraOperative Documentson 32-15-4581ZkfpcUghkzdujm [id number]#1.00CD:127[facility] HospitalIntraOperative Documents [id number]#1.00CD:[address] [place], [place] [address]Lyteson 07-74-0640Ucyea gap [Moles/Vol]6 mmol/LNormal6-16A[facility]a Health SystemComment on above:Performed By: #### 8872379, 4440462, 9766089, 7161848, 74264948, 7854912 ####[facility] [address] [place], [place] [address]Dxckpdbd [Moles/Vol]118 mmol/TCqvy697-068UzbxlqAdena Health SystemComment on above:Performed By: #### 3908553, 2159068, 2615154, 5349355, 65974075, 8001264 ####[facility] [address] [place], [place] [address]SR1 [Moles/Vol]23 mmol/OArnylk76-23 [facility] SystemComment on above:Performed By: #### 5864819, 1085457, 2598393, 4259316, 38536998, 7319107 ####[facility] [address] [place], [place] [address]Euxcqjmuv [Moles/Vol]4.0 mmol/LNormal 3.5-5.3FTriHealth Bethesda North HospitalComment on above:Performed By: #### 3252820, 6012587, 5112207, 6974177, 16270955, 4111040 ####Yasmani [facility] [address] [place] [address]Kfckkn [Moles/Vol]143 mmol/LNormal 135-145Fisher [facility] Medical CenterComment on above:Performed By: #### 9394505, 2187928, 4662361, 4465817, 94971283, 7432190 ####Yasmani [facility] Mgjaldimue[address] [place], [place] [address]Itws OR Intraoperative Recordon 98-71-9477Vqsz OR Intraoperative RecordIntraOp Document Type FT Summary Primary Physician: Jordan Yuan DO Finalized Date/Time: 04/07/23 14:30:58 Pt. Name: ZAIDIRAHDA/Sex: 1960 Female Med Rec #: [id number] Physician: Jordan Yuan DO Financial #: [id number] Pt. Type: A Room/Bed: [place] [address] Admit/Disch: 04/06/23 06:09:55 - 04/07/23 09:30:00 Institution: [...] 0836. Patient transported via cart back to [place] [address] and placed on FH84ysplkqc by ESTRELLITA De La Fuente. 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 Last Modified By: Wanda TURNING SANDER TENDER, Sharmaine Goldman RN, Dennis Goldman RN, Dennis Curry 04/07/23 14:28:51 04/06/23 11:35:47 04/06/23 11:35:47 Entry 4 Entry 5 Entry 6 Case Attendee Valerie TURNING SANDER TENDER, Jena Taylor CST, John Role Performed Scrub - Primary Scrub - Primary TURNING SANDER TENDER/SA Time In 04/06/23 09:32:00 04/06/23 09:32:00 [...] Yuan DO, Krupp RN, Dennis Curry, Valerie TURNING SANDER TENDER, Johnathan Hernandez Sydney A, Wilhelm CST, [...] initiates traffic control (more content not included)...NormalFisher [facility]ford Medical CenterMain OR PACU I Recordon 99-53-4955Uogd OR PACU I RecordPACU Phase I Document Type FT Summary Primary Physician: Jordan Yuan DO Finalized Date/Time: 04/07/23 08:05:19 Pt. Name: RADHA ZAIDI /Sex: 1960 Female Med Rec #: [id number] Physician: Jordan Yuan DO Financial #: [id number] Pt. Type: O Room/Bed: [facility] Admit/Disch: 04/06/23 06:09:55 - Institution: Case Times [...] RN 04/07/23 08:04 Cate Gonsales RN 04/07/23 08:05[facility] HospitalPatient Education - Text [id number] [facility] - [place], [place] [facility] DISCHARGE INSTRUCTIONS: SHOULDER REPLACEMENT [...] persistent vomiting. Jordan Yuan DO [facility] [address] [place] [address] Reviewed: NoAdena Health SystemPreoperative Documentson 39-68-1189Xkagcazywdkd Documents [id number]:127[facility] HospitalProgress Note-Physicianon 04-68-2405Itrcyjdj Note-PhysicianPatient: RADHA ZAIDI Age: 62 years Sex: [...] Diastolic Blood Pressure 63 mmHg SpO2 94 %NormalAdena Health SystemComment on above:Result Comment: Electronically Signed By: Jordan Yuan DO\.br\Date and Time Signed: 04/07/23 07:40 EDTeGFRon 30-44-1839YKG/1.73 sq M.predicted among non-blacks MDRD (S/P/Bld) [Vol rate/Area]72 mL/min/1.73 h0Swzfxi>=59[facility] Comment on above:Order Comment: Order added by Discern Expert.Result Comment: Chronic kidney disease could be indicated at eGFR's of less than 60 mL/min/1.73m2. Kidney failure is indicated at less than 15 mL/min/1.73m2. Performed By: #### [id number], [id number], [id number], [id number] ####[id number] [place] [address] ABO/Rhon 12-16-8027TDL/RhPositiveInvalid Interpretation [facility] - [facility] SouthComment on above:Performed By: #### [id number], [id number] ####[address] [address] ABO/Rh History Checkon 42-75-3623LJM/Rh History CheckVerified Hx Blood Type [facility] HospitalComment on above:Performed By: #### [id number], 29754018, 60700021, 9095897 ####[address] [address]GFUIzl 54-39-2508WMRU Gel InterpNegativeNormal [facility] SystemComment on above:Performed By: #### [id number], 69647504, 76283739, 7906546 ####[address] [place], [place] [address]NYLOA BANKOrdered By: Deyanira Nunez on 04-06-2023 ABO/Rh InterpPositiveInvalid Interpretation [facility] BB SubsectionABSC Gel InterpNegative (04/06/23 7:23 AM)[facility] BB SubsectionBlood Bank ID#on [id number] Invalid Interpretation [facility] SouthComment on above:Performed By: #### [id number], 33868948, 17396561, 6093349 ####[facility] [address] [place], [place] [address]Gttjkgd for Treatmenton 04-06-2023 Consent for [id number]#1.00CD:127Notessie Gruber [facility] CenterH&P Updateon 04-06-2023H&P Update [id number]#1.00CD:127AlyssaAdena Health SystemInsurance Correspondence Officeon 30-18-0465Awabtmtau Correspondence [id number]#1.00CD:127NotessieAdena Health SystemMain OR Preoperative Recordon 00-94-3831Rwbl OR Preoperative RecordPreOp Document Type FT Summary Primary Physician: Jordan Yuan DO Finalized Date/Time: 04/06/23 09:32:24 Pt. Name: ZAIDIRADHA/Sex: 1960 Female Med Rec #: [id number] Physician: Jordan Yuan DO Financial #: [id number] Pt. Type: A Room/Bed: [facility] [...] Signatures Signed By: Dennis Goldman RN 04/06/23 09:32NotessieAdena Health SystemMonitor Record on 23-00-1904Ahtavit [id number]#1.00CD:127 AlyssaAdena Health SystemMonitor Record [id number]#1.00CD:127NotessieAdena Health SystemMonitor [id number]#1.00CD:127Normal Yasmani [facility] CenterOperative Reporton 41-09-8226Uxcddulyy ReportPatient: RADHA ZAIDI Age: 62 years Sex: Female : 1960 Associated Diagnoses: None Author: Jordan Yuan DO DATE OF SURGERY: 04/06/2023 SURGEON: Jordan Yuan D.O. DEALER COMPLIANCE REPRESENTATIVE: Anival Flores CFA PREOPERATIVE DIAGNOSIS: Massive rotator [...] 3. size +6 humeral insert 4. Revers [place] size 9 stem with 36 (neutral) Suturecup OPERATIVE INDICATIONS: Radha is a 62-year-old xfxez-zkaf-molfbeul female who has had persistent right shoulder [...] deficiency. The depth-stop (more content not included)...Normal [facility] SystemComment on above:Result Comment: Electronically Signed [...] Using maximal sterile barrier technique per current [facility] guidelines including hand hygeine, Guidance (Ultrasound used [...] The patient tolerated the procedure as expected.Normal [facility] Health SystemComment on above:Result Comment: Electronically Signed By: Yanick Rai DO\.br\Date and Time Signed: 04/06/23 08:44 EDT Progress Note-Physicianon 30-45-6060Lmeyfxrx Note-PhysicianPatient: RADHA ZAIDI Age: 62 years Sex: Female : 1960 Associated Diagnoses: None Author: Yanick Rai DO Postoperative Information Postoperative disposition: Postoperative disposition: To PACU. Optimetrix number: Optimetrix number [id number]. Anesthetic utilized: General. Regional: Interscalene Block. 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 Family History: Primary malignant neoplasm of prostate Father Acute myocardial infarction Mother Procedure history: Cervical laminectomy (8135168875). Amputation of finger (379046438). Removal of lung, Partial (56554). Open reduction and internal fixation of fracture Leg (644879777). Foot surgery (0555246794). Lumbar discectomy (271666144). Social History Social & Psychosocial Habits Alcohol [...] clear to auscultation. (more content not included)... [facility] HospitalComment on above:Result Comment: Electronically Signed By: Yanick Rai DO.zari\Date and Time Signed: 04/06/23 08:05 EDT XR Shoulder Complete Righton 64-54-6616IT Shoulder Complete RightExam Date/Time: 04/06/2023 11:58 EDT [...] Ka,r in mGy = na DAP = naNormalAdena Health SystemConsent for Procedure/Surgeryon 99-84-1427Xtpbxzf for Procedure/Surgery [id number]#1.00CD:127L[facility] Memorial HospitalCT Upper Extremity w/o Contrast Righton 80-27-9015SU Upper Extremity w/o Contrast RightExam Date/Time: 03/24/2023 [...] Gigi Suazo DO Transcribed by: DANISHA Technologist: [facility] System West CampusABO/Rh Retypeon 80-29-2340RCS/Rh Retype InterpPositiveInvalid Interpretation [facility] SouthComment on above:Performed By: #### [id number] ####Yasmani [facility] [address] [place], [place] [address]YRIJG BANK Ordered By: Deyanira Longoria on 58-69-1028GXO/Rh Retype InterpPositiveInvalid Interpretation [facility] BB SubsectionBUNon 54-53-8964Owtu nitrogen [Mass/Vol]28 mg/dLHigh5-21A[facility]a Health SystemComment on above:Performed By: #### 81809515, 1958865, 1107750, 7581582, 4422328, 3188669 ####[facility] [address] [place], [place] [address]ZAR w/Indiceson 03-24-2023 Erythrocyte distribution width (RBC) [Ratio]14.5 %High10.9-14.2FTriHealth Bethesda North HospitalComment on above:Performed By: #### 98726997, 8529535, 2393942, 0155700, 7945192, 3981166 ####[facility] [address] [place], [place] [address]Xmjlwtmmjq (Bld) [Volume fraction]35.9 %Lvzqbf28.0-46.0 [facility] SystemComment on above:Performed By: #### 00549103, 5583767, 4397704, 1527980, 1957745, 3089721 ####[facility] [address] [place], [place] [address]Ybzqwawllo (Bld) [Mass/Vol]11.9 g/dL Low12.0-16.0A[facility] Health SystemComment on above:Performed By: #### 03462778, 7735246, 5944648, 2190924, 7366632, 9090030 ####[facility] [address] [place], [place] [address]HFT (RBC) [Entitic mass]32.3 bzSugifc65.0-34.0A[facility] Health SystemComment on above:Performed By: #### 27378444, 0747182, 4165728, 7568461, 0396244, 3454570 ####[facility] [address] [place], [place] [address]ZWSA (RBC) [Mass/Vol]33.1 g/dL Mdausl95.4-36.0A[facility] Health SystemComment on above:Performed By: #### 31927544, 4014511, 3766953, 5534263, 3293871, 3977967 ####[address] [address]NBD (RBC) [Entitic vol]97.4 fL Uhpbod82.0-100.0A[facility]a Health SystemComment on above:Performed By: #### 40362451, 2568791, 8225876, 3628473, 3870256, 0209006 ####[address] [address]Usfjndrh mean volume (Bld) [Entitic vol]7.4 fLNormal6.4-10.8A[facility]a Health SystemComment on above: Performed By: #### 40080300, 9796589, 1886469, 7682347, 9421748, 1036964 ####[address] [address] Platelets (Bld) [#/Vol]207.0 E9/BZmktnk687.0-500.0[facility] Comment on above:Performed By: #### 32944587, 7339695, 7790591, 2144458, 3426890, 9554568 ####[address] [address]JNG (Bld) [#/Vol]3.7 E12/LLow4.3-5.9A[facility] Health SystemComment on above:Performed By: #### 34406762, 0958142, 6346905, 7803844, 0343638, 8071287 ####[address] [address]KNQ corrected for nucl RBC Auto (Bld) [#/Vol]3.5 E9/LLow 4.0-11.0A[facility] Health SystemComment on above:Performed By: #### 83450158, 4044592, 8796630, 8943235, 4636671, 4421921 ####Yasmani [facility] [address] [place], [place] [address]ITSASZIZZLebjqmo By: SYSTEM SYSTEM on 48-38-3109Euzus gap [Moles/Vol]12 mmol/LNormal6 - 16 mEq/LFTMC RemisolChloride [Moles/Vol]111 mmol/UWtjowx160 - 111 mmol/LFTMC RemisolCO2 [Moles/Vol]20 mmol/L Low21 - 31 mmol/LFTMC RemisolCreatinine [Mass/Vol]1.2 mg/dLNormal0.5 - 1.3 mg/dL [facility] RemisolGFR/1.73 sq M.predicted among non-blacks MDRD (S/P/Bld) [Vol rate/Area]51 mL/min/1.73 m2Low>=59mL/min/1.73 m2[facility] Chem SGlucose [Mass/Vol]84 mg/cGTwecmd88 - 199 mg/dLLAKESIDE W[facility] RemisolPotassium [Moles/Vol]4.2 mmol/LNormal3.5 - 5.3 mmol/LFTMC RemisolSodium [Moles/Vol]139 mmol/OGkybsx482 - 145 mmol/LFTMC RemisolUrea nitrogen [Mass/Vol]28 mg/dLHigh5 - 21 mg/dLLAKESIDE W[facility] RemisolConsent for Treatmenton 33-24-8999Agrarod for Treatment [id number]:127NormalAdena Health SystemCreatinineon 82-89-9280Dpwnhkdccw [Mass/Vol]1.2 mg/dLNormal0.5-1.3Fisher [facility] CenterComment on above:Performed By: #### 18913967, 0939841, 9582889, 0183604, 3141481, 5797569 ####Yasmani [facility] [address] [place], [place] [address]Dcwbcycud 24-10-0328Niicxkm [Mass/Vol]84 mg/dL Nfodfe88-923KkbxocAdena Health SystemComment on above:Performed By: #### 76521722, 0304530, 2870788, 9842567, 1349042, 7546572 ####Yasmani [facility] [address] [place], [place] [address]HJZLYZRDUOAloxlot By: Deyanira Longoria on 47-13-4553Rfmiodeurpk distribution width (RBC) [Ratio]14.5 %High10.9 - 14.2 %[facility] HemeAutoSSHematocrit (Bld) [Volume fraction]35.9 %Mfyhop40.0 - 46.0 %[facility] HemeAutoSSHemoglobin (Bld) [Mass/Vol]11.9 g/dLLow12.0 - 16.0 gm/dL [facility] HemeAutoSSMCH (RBC) [Entitic mass]32.3 tnArtimr34.0 - 34.0 pgFTMC HemeAutoSSMCHC (RBC) [Mass/Vol]33.1 g/bBKytuca59.4 - 36.0 gm/dLFTMC HemeAutoSS MCV (RBC) [Entitic vol]97.4 wKUlgzjn62.0 - 100.0 fLFTMC HemeAutoSSPlatelet mean volume (Bld) [Entitic vol]7.4 fLNormal6.4 - 10.8 fLFTMC HemeAutoSSPlatelets (Bld) [#/Vol]207.0 E9/OPpdumw337.0 - 500.0 E9/LFTMC HemeAutoSSRBC (Bld) [#/Vol] 3.7 E12/LLow4.3 - 5.9 E12/LFTMC HemeAutoSSWBC corrected for nucl RBC Auto (Bld) [#/Vol]3.5 E9/LLow4.0 - 11.0 E9/LFTMC HemeAutoSSLyteson 07-60-1340Fjzii gap [Moles/Vol]12 mmol/LNormal6-16A[facility] Health SystemComment on above: Performed By: #### 90001716, 2131989, 9290047, 8230607, 9863405, 1191105 ####Yasmani [facility] [address] [place] [address] Chloride [Moles/Vol]111 mmol/DTllopm527-432Migrkq [facility] Medical CenterComment on above:Performed By: #### 70938412, 0066123, 9901639, 5577473, 5502129, 5927821 ####[facility] [address] [place], [place] [address]QO9 [Moles/Vol]20 mmol/OLdj85-04EuxxvrAdena Health SystemComment on above: Performed By: #### 39116194, 3491595, 2148217, 0508849, 2381582, 2321109 ####[facility] [address] [place] [address] Potassium [Moles/Vol]4.2 mmol/LNormal3.5-5.3Fisher [facility] Medical CenterComment on above:Performed By: #### 99993550, 4403503, 6820108, 2312877, 1581298, 9579263 ####[address] [address]Hmezrc [Moles/Vol]139 mmol/VDuwvlj441-605GbrbkiAdena Health SystemComment on above:Performed By: #### 97731298, 1576650, 0218348, 7061344, 5265039, 6773992 ####[address] [place], [place] [address]OF With Cult Reflexon 99-96-0293Qrwqbtlim Ql (U)NegativeNormalNegative [facility] SystemComment on above:Performed By: #### 62080603 #### [facility] [address], [place] [address]Uhmlibg (U)CLEARNormalClearAdena Health SystemComment on above:Performed By: #### 73269279 #### [facility] [address], [place] [address]Uvwfp (U)YELLOWNormalYellowAdena Health SystemComment on above:Performed By: #### 33963597 #### [facility] [address], [place] [address]Qrmlknzlhn cells.squamous LM.HPF (Urine sed) [#/Area]0-2Normal 0-2FTriHealth Bethesda North HospitalComment on above:Performed By: #### 62947960 #### [facility] [address], [place] [address]Zihx Granular Casts LM Ql (Urine sed)0-3NormalAdena Health SystemComment on above:Performed By: #### 28249367 #### [facility] [address], [place] [address]Pcbegiw Test strip (U) [Mass/Vol]NegativeNormalNegativeAdena Health SystemComment on above:Performed By: #### 12188771 #### [facility] [address] [place] [address]Xarvasjauw Ql (U)NegativeNoalNegPremier Health Miami Valley HospitalComment on above:Performed By: #### 41201450 #### [facility] [address] [place] [address]Faqhiva (U) [Mass/Vol]NegativeNormalNegPremier Health Miami Valley HospitalComment on above:Performed By: #### 75200520 #### [facility] [address] [place] [address]Cqjfgek.plasma/Glen.RBC (Bld) [Mass ratio]9-8Mooove9-4RpnhopTriHealth Bethesda North HospitalComment on above:Performed By: #### 15111707 #### [facility] [address] [place] [address]Nqftu Ql (Urine sed)TRACENoAdena Health System Comment on above:Performed By: #### 44599070 #### [facility] [address] [place] [address]Qndemff Ql (U)[facility] Comment on above:Performed By: #### 14596563 #### [facility] [address] [place] [address]yG (U)6.0 [pH]Invalid Interpretation Code5.0-9.0[facility] Health SystemComment on above:Performed By: #### 11022361 #### [facility]uber [facility] [address], [place] [address]Ibpgkks (U) [Mass/Vol]NegativeNormalNegativeAdena Health SystemComment on above:Performed By: #### 64374830 #### Gruber [facility] [address] [place] [address]Phgxnjca gravity (U) [Rel density]>=1.030Invalid Interpretation Code1.005-1.030A[facility]a Health SystemComment on above:Performed By: #### [id number] #### Gruber [facility] [address] [place] [address]Kuil of Urine collection methodClean CatchNormalAdena Health SystemComment on above:Performed By: #### 19333047 #### Yasmani [facility] [address] [place] [address]Msrlqxpxihmh Qn (U)0.2 {Rajwinder'U}/dLNormal0.0-1.0[facility] Health SystemComment on above:Performed By: #### 58651664 #### [facility] [address] [place] [address]XJQ Auto Ql (U)NegativeNormalNegativeAdena Health SystemComment on above:Performed By: #### 38199850 #### [facility]uber [facility] [address] [place] [address]OXU LM.HPF (Urine sed) [#/Area]4-8Gxpjcp4-6Ihfdnb [facility] Medical CenterComment on above:Performed By: #### [id number] #### [facility] [address] [place] [address]HRQOQPPLZHSsbbmfc By: Indira Case on 26-77-0046Ivlkovdzg Ql (U) Negative (03/24/23 3:05 PM)NormalNegativeLAKESIDE [facility] UA Auto SSClarity (U)Clear (03/24/23 3:05 PM)NormalClearFGREAT PLAINS [facility] [place] UA Auto SSColor (U)Yellow (03/24/23 3:05 PM)NormalYellowLAKESIDE WOMEN'S [facility] [place] UA Auto SSEpithelial cells.squamous LM.HPF (Urine sed) [#/Area]0-2 /HPFNormal0-2/HPFLAKESIDE WOMEN'S [facility] UA Auto SSFine Granular Casts LM Ql (Urine sed)0-3 (03/24/23 3:05 PM)NormalLAKESIDE WOMEN'S [facility] [place] UA Auto SSGlucose Test strip (U) [Mass/Vol]Negative (03/24/23 3:05 PM)NormalNegativeLAKESIDE W[facility] UA Auto SSHemoglobin Ql (U)Negative (03/24/23 3:05 PM)NormalNegativeLAKESIDE W[facility] [place] UA Auto SSKetones (U) [Mass/Vol]Negative (03/24/23 3:05 PM)NormalNegativeLAKESIDE W[facility] [place] UA Auto SSLithium.plasma/Glen.RBC (Bld) [Mass ratio]0-3 /HPFNormal0-3/HPFLAKESIDE WOMEN'S [facility] [place] UA Auto SSMucus Ql (Urine sed)Trace (03/24/23 3:05 PM)NormalLAKESIDE WOMEN'S [facility] [place] UA Auto SSNitrite Ql (U)Negative (03/24/23 3:05 PM)NormalNegativeLAKESIDE W[facility] [place] UA Auto SSpH (U)6.0 *NA* (03/24/23 3:05 PM)Invalid Interpretation Code5.0 - 9.0[facility] UA Auto SSProtein (U) [Mass/Vol]Negative (03/24/23 3:05 PM)NormalNegativeLAKESIDE W[facility] [place] UA Auto SSSpecific gravity (U) [Rel density] >=1.030 *NA* (03/24/23 3:05 PM)Invalid Interpretation Code1.005 - 1.030[facility] UA Auto SSUA Spec DescClean Catch (03/24/23 3:05 PM)NormalLAKESIDE WOMEN'S [facility] [place] UA Auto SSUrobilinogen Qn (U)0.4678096 {Rajwinder'U}/dLNormal0.0 - 1.0 EU/dLLAKESIDE WOMEN'S [facility] [place] [facility] UA Auto SSWBC Auto Ql (U)Negative (03/24/23 3:05 PM)NormalNegativeLAKESIDE WOMEN'S [facility] [place] UA Auto SSWBC LM.HPF (Urine sed) [#/Area]0-5 /HPFNormal0-5/HPFLAKESIDE WOMEN'S [facility] [place] UA Auto SSXR Chest 2 Viewson 57-36-2317RZ Chest 2 Views Exam Date/Time: 03/24/2023 15:21 [...] mGy = na DAP = naNorUniversity Hospitals Health SystemeGFRon 35-98-0431OSQ/1.73 sq M.predicted among non-blacks MDRD (S/P/Bld) [Vol rate/Area]51 mL/min/1.73 m2Low >=[address] [place], [place] [address]Comment on above:Order Comment: Order added by Discern Expert.Result Comment: Chronic kidney disease could be indicated at eGFR's of less than 60 mL/min/1.73m2. Kidney failure is indicated at less than 15 mL/min/1.73m2.Performed By: #### 25249005, 3736746, 1084815, 2184689, 6644759, 6638299 ####[facility] [address] [place], [place] [address]Wshphrybe Orderon 82-35-9281Swmhnejyt Order [id number]#1.00CD:127NoAdena Health SystemXR SHOULDER RT 2V or >on 20-43-9177KD SHOULDER RT 2V or >EXAM: XR SHOULDER [...] Electronically authenticated by: VANDANA YUAN Date: 2022-10-07 22:08NoThe [facility] AUTO DIFFon 75-32-7023YOCB #0.0 103/ulNormal0.0-0.1[facility] FoundationComment on above:Performed By: #### CBC ####[facility] [address] [address]Dr.Andrade ChangBasophils/100 WBC (Bld)0.5 %Normal0.2-2.0The [facility] on above:Performed By: #### CBC ####[facility] Z[address]ir[address] [place], [place] [address]Dr.Kellenlan ChangEO #0.1 103/ulNormal0.0-0.7The [facility] HospitalCommymichigan medical center sault on above:Performed By: #### CBC ####[facility] Tzjjcvpdbs[address] [place], [place] [address]Dr.Andrade ChangEosinophils/100 WBC (Bld)2.3 %Normal 0.9-7.0The [facility] HospitalComment on above:Performed By: #### CBC ####[facility] [address] [place] [address]Dr.Andrade Alvarado Erythrocyte distribution width (RBC) [Ratio]13.7 %Vthgbf40.0-15.0The [facility] on above:Performed By: #### CBC ####[facility] [address]ranzifud[address] [place], [place] [address]Dr.Andrade AlvaradoHematocrit (Bld) [Volume fraction]32.8 %Critically low36.0-48.0The [facility] HospitalComment on above:Performed By: #### CBC ####[facility] [address] [place] [address]Dr.Andrade ChangHemoglobin (Bld) [Mass/Vol]10.9 g/dL Critically low12.0-16.0The [facility] HospitalComment on above:Performed By: #### CBC ####[facility] Wyohm[address] [place], [place] [address]Dr. Kellenlan ChangIG #0.02 10e3/ulNormal0.00-0.03The [facility] HospitalComment on above: Performed By: #### CBC ####[facility] [address]vkwxnzj[address] [place], [place] [address]Dr.Kellengregory ChangIG %0.5 %Normal0.0-0.5The [facility] HospitalComment on above:Performed By: #### CBC ####[facility] Oz[address]aw[address] [place], [place] [address]Dr.Andrade ChangLYMPH #1.6 103/ulNormal1.2-3.8The [facility] HospitalComment on above:Performed By: #### CBC ####[facility] Ngzdrkpajr[address] [place], [place] [address]Dr. Kellengregory AlvaradoLymphocytes/100 WBC (Bld)41.8 %Vpcird25.5-60.0The [facility] Comment on above:Performed By: #### CBC ####[facility] [address]etqaseh[address] [place], [place] [address]Dr.Kellengregory ChristianoMANUAL DIFF REQNONormalThe [facility] HospitalComment on above:Performed By: #### CBC ####[facility] [address]wvmozgyqm[address] [place], [place] [address]Dr.Andrade AlvaradoH (RBC) [Entitic mass]31.9 wzFtjjcs95.7-34.0The [facility] HospitalComment on above: Performed By: #### CBC ####[facility] V[address]cfhodtzn[address] [place], [place] [address]Dr.Andrade AlvaradoST. JOSEPH[facility] (RBC) [Mass/Vol]33.2 g/dLNormal 29.9-35.2The [facility] HospitalComment on above:Performed By: #### CBC ####[facility] [address] [place] [address] [address]Dr. Andrade ChristianoMCV (RBC) [Entitic vol]95.9 wFHejqyz66.0-99.0The [facility] Comment on above:Performed By: #### CBC ####[facility] Qntrnhziju[address] [place], [place] [address]Dr.Andrade AlvaradoMONO #0.5 103/ulNormal0.3-0.8 The [facility] HospitalComment on above:Performed By: #### CBC ####[facility] Z[address]el[address]irf[address] [place], [place] [address]Dr.Andrade Alvarado Monocytes/100 WBC (Bld)13.1 %Critically high1.7-12.0The [facility] HospitalComment on above:Performed By: #### CBC ####[facility] Ulnlxkzeoe[address] [place], [place] [address]Dr.Andrade AlvaradoNEUT #1.6 103/ulNormal1.4-6.5The [facility] HospitalComment on above:Performed By: #### CBC ####[facility] [address]ptkyhavis[address] [place], [place] [address]Dr.Kellengregory AlvaradoNeutrophils/100 WBC (Bld)41.8 %Critically low43.0-75.0The [facility] HospitalComment on above: Performed By: #### CBC ####[facility] [address]xadvjcoa[address] [place], [place] [address]Dr.Kellengregory AlvaradoPlatelet mean volume (Bld) [Entitic vol] 8.8 fLCritically low9.5-13.5The [facility] HospitalComment on above:Performed By: #### CBC ####[facility] [address]ykn[address]tk[address] [place], [place] [address]Dr.Andrade MwcwiOGE740 103/szChkuvy321-571Lkl [facility] HospitalComment on above:Performed By: #### CBC ####[facility] Suf[address]wsp[address] [place], [place] [address]Dr.Andrade AlvaradoRBC3.42 106/ulCritically low4.20-5.40The [facility] HospitalComment on above:Performed By: #### CBC ####[facility] [address] [place] [address]Dr.Yilan AlvaradoWBC3.9 103/ul Critically low4.0-11.0The [facility] HospitalComment on above:Performed By: #### CBC ####[facility] [address] [place] [address]Dr. Andrade AlvaradoFERRITINon 85-11-1776Duwqvqcu [Mass/Vol]292.0 ng/mLCritically high 8.0-252.0The [facility] HospitalComment on above:Performed By: #### FERR, B12FOL, FETIBC #### [facility] [address] [address] [address] Andrade Chavez AND TIBCon 09-16-2022% QBBYZNSHGD09.2 %NormalThe [facility] HospitalComment on above:Performed By: #### FERR, B12FOL, FETIBC #### [facility] [address] [address] [address] Andrade Chavez [Mass/Vol]259.0 ug/dLCritically high50.0-170.0The [facility] HospitalComment on above:Performed By: #### FERR, B12FOL, FETIBC #### [facility] [address] [address] [address] Andrade Sandhu GSNLQM215.0 ug/eKRlyxhq993.0-450.0[facility] Comment on above:Performed By: #### FERR, B12FOL, FETIBC #### [facility] [address] [address] [address] Andrade David 14(COMP METB)on [id number] [Mass/Vol]4.0 g/dLNormal 3.4-5.0The [facility] HospitalComment on above:Performed By: #### CMP ####[facility] [id number] [place], [place] [address]Dr.Yilan Alvarado Albumin/Globulin [Mass ratio]1.3 {ratio}NormalThe [facility] HospitalComment on above:Performed By: #### CMP ####[facility] Uzxxsafers[address] [place], [place] [address]Dr.Andrade AlvaradoALP [Catalytic activity/Vol]47 U/LNormal 46-116The [facility] HospitalComment on above:Performed By: #### CMP ####[facility] Xidwspadto[address] [place], [place] [address]Dr.Andrade ChangALT [Catalytic activity/Vol]23 U/ZPhnqgs24-38Hpt [facility] HospitalComment on above: Performed By: #### CMP ####[facility] Xtbfxgabne[address] [place], [place] [address]Dr.Andrade AlvaradoAnion gap [Moles/Vol]12.1 mmol/LNormal The [facility] HospitalComment on above:Performed By: #### CMP ####[facility] Npnthmcqrm[address] [place], [place] [address]Dr.Andrade ChangAST [Catalytic activity/Vol]23 U/YOehodo57-28Fvs [facility] HospitalComment on above: Performed By: #### CMP ####[facility] Uypjcjlfwr[address] [place], [place] [address]Dr.Andrade AlvaradoBilirubin [Mass/Vol]0.4 mg/dLNormal 0.2-1.0The [facility] HospitalComment on above:Performed By: #### CMP ####[facility] Ryagddtycr[address] [place], [place] [address]Dr.Andrade Alvarado Calcium [Mass/Vol]9.3 mg/dLNormal8.5-10.1The [facility] HospitalComment on above: Performed By: #### CMP ####[facility] Zwtrpooomx[address] [place], [place] [address]Dr.Andrade ChangChloride [Moles/Vol]108 mmol/LCritically muyr98-779Rnc [facility] HospitalComment on above:Performed By: #### CMP ####[facility] Awfejahddz02[address] [place], [place] [address]Dr. Yigregory ChangCO2 [Moles/Vol]26.9 mmol/STtwcqy90.0-32.0The [facility] HospitalComment on above:Performed By: #### CMP ####[facility] Rhibjdsumw[address] [place], [place] [address]Dr.Yilan ChangCreatinine [Mass/Vol]0.87 mg/dLNormal 0.55-1.02The [facility] HospitalComment on above:Performed By: #### CMP ####[facility] Qztajfqjgw[address] [place], [place] [address]Dr. Yilan ChangEGFR-AF CITIZEN OF [place]>60Normal>=60The [facility] HospitalComment on above: Performed By: #### CMP ####[facility] Ncrgvxdlkg180[address] [place], [place] [address]Dr.Yilan ChangEGFR-NON AF CITIZEN OF [place]>60Normal>=60The [facility] HospitalComment on above:Performed By: #### CMP ####[facility] Lwgurvszoa[address] [place], [place] [address]Dr.Yilan ChangGlobulin (S) [Mass/Vol]3.0 g/dLNormalThe [facility] HospitalComment on above:Performed By: #### CMP ####[facility] Jmhstcqxhk24[address] [place], [place] [address]Dr.Yilan ChangGlucose [Mass/Vol]102 mg/lKYpxgfg39-132Hlc [facility] Comment on above:Performed By: #### CMP ####[facility] Fybgyfyrgq[address] [place], [place] [address]Dr.Yilan ChangPotassium [Moles/Vol]4.0 mmol/LNormal3.5-5.1The [facility] HospitalComment on above:Performed By: #### CMP ####[facility] Lxpfwlgsmz759[address] [place], [place] [address]Dr. Yilan ChangProtein [Mass/Vol]7.0 g/dLNormal6.4-8.2The [facility] HospitalComment on above:Performed By: #### CMP ####[facility] Rpjenrdelw55[address] [place], [place] [address]Dr.Yilan ChangSodium [Moles/Vol]143 mmol/LNormal 136-145The [facility] HospitalComment on above:Performed By: #### CMP ####[facility] R[address]ifvmxrx[address] [address]Dr.Kellengregory ChangUrea nitrogen [Mass/Vol]25.0 mg/dLCritically high7.0-18.0The [facility] HospitalComment on above:Performed By: #### CMP ####[facility] [address]hquu[address] [address]Dr.Kellengregory ChangUrea nitrogen/Creatinine [Mass ratio] 28.7 mg/mgNormalThe [facility] HospitalComment on above:Performed By: #### CMP ####[facility] Mvhdonlyvl[address] [place] [address]Dr. Andrade AlvaradoSED RATE WESTERGRENon 40-72-0866JDS RATE11 mm/hrNormal<=30The [facility] HospitalComment on above:Performed By: #### SEDR ####[facility] Zfeacewajy5[address] [place], [place] [address]Dr. Andrade AlvaradoVIT B12 AND FOLATEon 32-56-9058Vkbmzfbvk (Vitamin B12) [Mass/Vol]249.0 pg/mLNormal 193.0-986.0The [facility] HospitalComment on above:Performed By: #### FERR, B12FOL, FETIBC #### [facility] [address] [address] [address] Andrade AlvaradoFOLATE14.00 ng/mLNormal8.60-58.90The [facility] HospitalComment on above:Performed By: #### FERR, B12FOL, FETIBC #### [facility] [address] [address] [address] Andrade AlvaradoMG MAMM SCREEN 3D BRENNA CADon 13-53-1335DM MAMM SCREEN 3D BRENNA CAD Patient: RADHA ZAIDI Exam Date: 2022 : 1960 Gender:F Ordering : DR JOHN ASHBY D.O. Admission #: [id number] Family : Order #: [id number] CLICK HERE TO VIEW EXAM RADIOLOGY REPORT [...] prostate cancer at age 72. LOCATION: [facility] BREAST COMPOSITION: Scattered areas fibroglandular density. [...] by: Julian Teixeira M.D. on 06/09/2022 at 15:30NoThe [facility] AUTO DIFFon 40-28-4802NSNS #0.0 103/ulNormal0.0-0.1[facility] Clinic FoundationComment on above:Performed By: #### CBC ####[facility] Uobhzqxxhv52[address] [place], [place] [address]Dr.Andrade ChangBasophils/100 WBC (Bld)1.0 %Normal0.2-2.0[facility] Clinic FoundationComment on above:Performed By: #### CBC ####[facility] Ftvkhcyosd4565[address] [place], [place] [address]Dr.Kellenlan ChangEO #0.1 103/ulNormal0.0-0.7ThUniversity Hospitals Lake West Medical CenterComment on above:Performed By: #### CBC ####[facility] Lpjdubfhlc132[address] [place], [place] [address]Dr.Andrade ChangEosinophils/100 WBC (Bld)2.5 %Normal 0.9-7.0The [facility] HospitalComment on above:Performed By: #### CBC ####[facility] Ijiioztrqa[address] [place], [place] [address]Dr.Yilan Alvarado Erythrocyte distribution width (RBC) [Ratio]13.0 %Gendrn29.0-15.0The [facility] HospitalComment on above:Performed By: #### CBC ####[facility] [address]qvmj[address] [address]Dr.Andrade AlvaradoHematocrit (Bld) [Volume fraction]34.9 %Critically low36.0-48.0The [facility] HospitalComment on above:Performed By: #### CBC ####[facility] Haixpabzuh[address] [place], [place] [address]Dr.Andrade AlvaradoHemoglobin (Bld) [Mass/Vol]11.6 g/dL Critically low12.0-16.0The [facility] HospitalComment on above:Performed By: #### CBC ####[facility] Szmaiensoj404[address] [place], [place] [address]Dr. Andrade ChangIG #0.02 10e3/ulNormal0.00-0.03The [facility] HospitalComment on above: Performed By: #### CBC ####[facility] Ledgzujsya25[address] [place], [place] [address]Dr.Andrade ChangIG %0.5 %Normal0.0-0.5The [facility] HospitalComment on above:Performed By: #### CBC ####[facility] Rhqmtxtdtm5520[address] [place], [place] [address]Dr.Andrade AlvaradoLYMPH #1.9 103/ulNormal1.2-3.8The [facility] HospitalComment on above:Performed By: #### CBC ####[facility] Zmqtrvkmsq6627[address] [place], [place] [address]Dr. Andrade AlvaradoLymphocytes/100 WBC (Bld)46.1 %Srsjcw06.5-60.0The [facility] Comment on above:Performed By: #### CBC ####[facility] Vunkzohfja28[address] [place], [place] [address]Dr.Andrade AlvaradoMANUAL DIFF REQNONormalThe [facility] HospitalComment on above:Performed By: #### CBC ####[facility] Wlyfsuyeip[address] [place], [place] [address]Dr.Andrade ChristianoH (RBC) [Entitic mass]32.3 buXbfmhn38.7-34.0The [facility] HospitalComment on above: Performed By: #### CBC ####[facility] [address]ptnftbneb[address] [address]Dr.Andrade AlvaradoHC (RBC) [Mass/Vol]33.2 g/dLNormal 29.9-35.2The [facility] HospitalComment on above:Performed By: #### CBC ####[facility] Vwbmfxpjju01[address] [place], [place] [address]Dr. Kellengregory AlvaradoV (RBC) [Entitic vol]97.2 nHAcumhj91.0-99.0The [facility] Comment on above:Performed By: #### CBC ####[facility] Eqqatrplix39[address] [place], [place] [address]Dr.Andrade AlvaradoMONO #0.5 103/ulNormal0.3-0.8 The [facility] HospitalComment on above:Performed By: #### CBC ####[facility] Ejkzllyprc[address] [place], [place] [address]Dr.Andrade Alvarado Monocytes/100 WBC (Bld)13.5 %Critically high1.7-12.0The [facility] HospitalComment on above:Performed By: #### CBC ####[facility] Kaozoebrug54[address] [place], [place] [address]Dr.Andrade AlvaradoNEUT #1.5 103/ulNormal1.4-6.5The [facility] HospitalComment on above:Performed By: #### CBC ####[facility] Xpjqdicngs69[address] [place], [place] [address]Dr.Andrade AlvaradoNeutrophils/100 WBC (Bld)36.4 %Critically low43.0-75.0The [facility] HospitalComment on above: Performed By: #### CBC ####[facility] Wazfuumiws49[address] [place], [place] [address]Dr.Andrade AlvaradoPlatelet mean volume (Bld) [Entitic vol] 8.9 fLCritically low9.5-13.5The [facility] HospitalComment on above:Performed By: #### CBC ####[facility] [address]pcfuq[address] [address]Dr.Andrade AlvaradoPLT237 103/clDaoosd884-690Ape [facility] HospitalComment on above:Performed By: #### CBC ####[facility] Gqjerxtwua[address] [address]Dr.Andrade AlvaradoRBC3.59 106/ulCritically low4.20-5.40The [facility] HospitalComment on above:Performed By: #### CBC ####[facility] Gwccjfttjd[address] [address]Dr.Andrade AlvaradoWBC4.0 103/ul Normal4.0-11.0The [facility] HospitalComment on above:Performed By: #### CBC ####[facility] Zwmgdmhsbd29[address] [address]DrMehreen PedroPon 04-73-5305VZT [Mass/Vol]mg/LNormal<=1.0The [facility] Comment on above:Performed By: #### CMP, CRP, TSH ####[facility] Sbfdspbtmu[address] [place], [place] [address]DrMehreen AlvaradoPROF 14(COMP METB)on 59-05-4099Ybmfpqd [Mass/Vol]4.2 g/dLNormal3.4-5.0The [facility] Comment on above:Performed By: #### CMP, CRP, TSH #### [facility] [address] [place] [address] Dr. Andrade AlvaradoAlbumin/Globulin [Mass ratio]1.3 {ratio}NormalThe [facility] HospitalComment on above:Performed By: #### CMP, CRP, TSH #### [facility] [address] [place] [address] Dr. Andrade Bermudez [Catalytic activity/Vol]50 U/LWwkvud28-466Yzr [facility] HospitalComment on above:Performed By: #### CMP, CRP, TSH #### [facility] [address] [place] [address] Dr. Yilan ChangALT [Catalytic activity/Vol]23 U/PTwfjfm29-99Mpo [facility] HospitalComment on above:Performed By: #### CMP, CRP, TSH #### [facility] [address] [place] [address] Dr. Andrade AlvaradoAnion gap [Moles/Vol]11.3 mmol/LNormalCleveland Clinic Foundation Comment on above:Performed By: #### CMP, CRP, TSH #### [facility] [address] [place] [address] Dr. Andrade AlvaradoAST [Catalytic activity/Vol]23 U/JVzriei48-14Ibd [facility] HospitalComment on above:Performed By: #### CMP, CRP, TSH #### [facility] [address] [place] [address] Dr. Andrade AlvaradoBilirubin [Mass/Vol]0.5 mg/dLNormal0.2-1.0[facility] Comment on above:Performed By: #### CMP, CRP, TSH #### [facility] [address] [place] [address] Dr. Andrade AlvaradoCalcium [Mass/Vol]9.3 mg/dLNormal8.5-10.1[facility] Comment on above:Performed By: #### CMP, CRP, TSH #### [facility] [address] [place] [address] Dr. Andrade AlvaradoChloride [Moles/Vol]104 mmol/FUmobez29-145ZzyCleveland Clinic Foundation Comment on above:Performed By: #### CMP, CRP, TSH #### [facility] [address] [place] [address] Dr. Andrade AlvaradoCO2 [Moles/Vol]27.2 mmol/IOcbuju16.0-32.0The [facility] Comment on above:Performed By: #### CMP, CRP, TSH #### [facility] [address] [place] [address] Dr. Andrade AlvaradoCreatinine [Mass/Vol]0.99 mg/dLNormal0.55-1.02The [facility] HospitalComment on above:Performed By: #### CMP, CRP, TSH #### [facility] [address] [address] [address] Andrade MartinezGFR-AF CITIZEN OF [place]>60Normal>=60The [facility] HospitalComment on above:Performed By: #### CMP, CRP, TSH #### [facility] [address] [address] [address] Andrade MartinezGFR-NON AF GSKGQVEA42 mL/min/1.82v5Ykdegtnbzq low>=60The [facility] HospitalComment on above:Performed By: #### CMP, CRP, TSH #### [facility] [address] [address] [address] Andrade AlvaradoGlobulin (S) [Mass/Vol]3.3 g/dLNormalThe [facility] HospitalComment on above:Performed By: #### CMP, CRP, TSH #### [facility] [address] [address] [address] Andrade AlvaradoGlucose [Mass/Vol]97 mg/mDLvabzz72-685VxuCleveland Clinic Foundation Comment on above:Performed By: #### CMP, CRP, TSH #### [facility] [address] [address] [address] Andrade AlvaradoPotassium [Moles/Vol]3.5 mmol/LNormal3.5-5.1The [facility] Comment on above:Performed By: #### CMP, CRP, TSH #### [facility] [address] [address] [address] Andrade AlvaradoProtein [Mass/Vol]7.5 g/dLNormal6.4-8.2The [facility] Comment on above:Performed By: #### CMP, CRP, TSH #### [facility] [address] [address] [address] Andrade AlvaradoSodium [Moles/Vol]139 mmol/VBmodru102-113Zyr [facility] Comment on above:Performed By: #### CMP, CRP, TSH #### [facility] [address] [address] [address] Andrade AlvaradoUrea nitrogen [Mass/Vol]22.0 mg/dLCritically high7.0-18.0The [facility] on above:Performed By: #### CMP, CRP, TSH #### [facility] [address] [address] [address] Andrade AlvaradoUrea nitrogen/Creatinine [Mass ratio]22.2 mg/mgNormalThe [facility] HospitalCommymichigan medical center sault on above:Performed By: #### CMP, CRP, TSH #### [facility] [address] [address] [address] Andrade Ellsworth RATE WESTERGRENon 84-81-4698HDU RATE22 mm/hrNormal<=30The [facility] on above:Performed By: #### SEDR ####[facility] Fgfulgswxd[address] [place], [place] [address]DrMehreen AlvaradoTSHon 29-21-7773RIT4.373 uIU/mLNormal0.358-3.740The [facility] on above: Performed By: #### CMP, CRP, TSH #### [facility] [address] [address] [address] Andrade Vieira AUTO DIFFon 22-03-3088NLAS #0.0 103/ulNormal0.0-0.1The [facility] on above:Performed By: #### CBC ####[facility] [address]oxmzsnba[address] [place], [place] [address]Dr.Andrade ChangBasophils/100 WBC (Bld)0.9 %Normal0.2-2.0The [facility] on above:Performed By: #### CBC ####[facility] Dogjfgllyo[address] [place], [place] [address]Dr.Kellenlan ChangEO #0.1 103/ulNormal0.0-0.7The [facility] on above:Performed By: #### CBC ####[facility] Kwigwcxqbb[address] [place], [place] [address]Dr.Andrade ChangEosinophils/100 WBC (Bld)2.3 %Normal 0.9-7.0The [facility] on above:Performed By: #### CBC ####[facility] [address]isnawc[address] [address]Dr.Andrade Alvarado Erythrocyte distribution width (RBC) [Ratio]12.6 %Aivwnm56.0-15.0The [facility] HospitalComment on above:Performed By: #### CBC ####[facility] [address]sljzrmq[address] [place], [place] [address]Dr.Andrade AlvaradoHematocrit (Bld) [Volume fraction]37.8 %Dlkwsg33.0-48.0The [facility] HospitalComment on above:Performed By: #### CBC ####[facility] Spohmagrcn[address] [place], [place] [address]Dr.Andrade AlvaradoHemoglobin (Bld) [Mass/Vol]12.3 g/dL Cmgcor32.0-16.0The [facility] HospitalComment on above:Performed By: #### CBC ####[facility] Lilqivssqu[address] [place], [place] [address]Dr. Kellengregory AlvaradoIG #0.02 10e3/ulNormal0.00-0.03The [facility] HospitalComment on above: Performed By: #### CBC ####[facility] Jvbhmlqlxj[address] [place], [place] [address]Dr.Kellengregory AlvaradoIG %0.5 %Normal0.0-0.5The [facility] HospitalComment on above:Performed By: #### CBC ####[facility] Sjoseuqbgg[address] [place], [place] [address]Dr.Andrade ChristianoLYMPH #2.1 103/ulNormal1.2-3.8The [facility] HospitalComment on above:Performed By: #### CBC ####[facility] Izrjongvjo[address] [place], [place] [address]Dr. Andrade ChristianoLymphocytes/100 WBC (Bld)48.3 %Ozdrdg23.5-60.0The [facility] Comment on above:Performed By: #### CBC ####[facility] Ixikfwfphl[address] [place], [place] [address]Dr.Andrade AlvaradoMANUAL DIFF REQNONormalThe [facility] HospitalComment on above:Performed By: #### CBC ####[facility] [address]keweqjs[address] [address]Dr.Andrade ChristianoH (RBC) [Entitic mass]31.9 toEurnob87.7-34.0The [facility] HospitalComment on above: Performed By: #### CBC ####[facility] Tbedibmsbu[address] [address]Dr.Andrade AlvaradoHC (RBC) [Mass/Vol]32.5 g/dLNormal 29.9-35.2The [facility] HospitalComment on above:Performed By: #### CBC ####[facility] [address]ywhhrdhb[address] [address]Dr. Andrade AlvaradoV (RBC) [Entitic vol]97.9 iDJnuacc85.0-99.0The [facility] Comment on above:Performed By: #### CBC ####[facility] Kgvjmengar[address] [place], [place] [address]Dr.Andrade AlvaradoMONO #0.5 103/ulNormal0.3-0.8 The [facility] HospitalComment on above:Performed By: #### CBC ####[facility] Hbrczczwlo[address] [place], [place] [address]Dr.Kellengregory Alvarado Monocytes/100 WBC (Bld)11.2 %Normal1.7-12.0The [facility] HospitalComment on above:Performed By: #### CBC ####[facility] Nsckvvgwxl8[address] [place], [place] [address]Dr.Andrade AlvaradoNEUT #1.6 103/ulNormal1.4-6.5The [facility] HospitalComment on above:Performed By: #### CBC ####[facility] Nyykoahxsi84[address] [place], [place] [address]Dr.Andrade AlvaradoNeutrophils/100 WBC (Bld)36.8 %Critically low43.0-75.0The [facility] HospitalComment on above: Performed By: #### CBC ####[facility] Vjthczytpu[address] [place], [place] [address]Dr.Kellengregory AlvaradoPlatelet mean volume (Bld) [Entitic vol] 9.9 fLNormal9.5-13.5The [facility] HospitalComment on above:Performed By: #### CBC ####[facility] [address]sf[address]pyz[address] [place] [address]DrMehreen AlvaradoPLT213 103/dqCowlce202-574Inu [facility] HospitalComment on above: Performed By: #### CBC ####[facility] Johsafypvt[address] [place] [address]Dr.Andrade AlvaradoRBC3.86 106/ulCritically low4.20-5.40The [facility] HospitalComment on above:Performed By: #### CBC ####[facility] Pte[address]ctbbn[address] [place], [place] [address]DrNito AlvaradoWBC4.4 103/ul Normal4.0-11.0The [facility] HospitalComment on above:Performed By: #### CBC ####[facility] Upyccljsgj[address] [place], [place] [address]DrMehreen AlvaradoPROF 14(COMP METB)on 34-12-6245Shlnfnd [Mass/Vol]4.2 g/dLNormal 3.4-5.0The [facility] HospitalComment on above:Performed By: #### CMP #### [facility] [address] [place] [address] Dr. Andrade AlvaradoAlbumin/Globulin [Mass ratio]1.3 {ratio}NormalThe [facility] HospitalCommymichigan medical center sault on above:Performed By: #### CMP #### [facility] [address] [place] [address] Dr. Andrade Bermudez [Catalytic activity/Vol]61 U/JOyqmxg09-348Vtt [facility] HospitalComment on above:Performed By: #### CMP #### [facility] [address] [place] [address] Dr. Andrade Lujan [Catalytic activity/Vol]23 U/EPgpiwq81-53Lgz [facility] HospitalComment on above:Performed By: #### CMP #### [facility] [address] [place] [address] Dr. Andrade Nunez gap [Moles/Vol]15.5 mmol/LNormalC[facility] Clinic Foundation Comment on above:Performed By: #### CMP #### [facility] [address] [address] [address] Andrade AlvaradoAST [Catalytic activity/Vol]20 U/MExtiii81-09Wmu [facility] HospitalComment on above:Performed By: #### CMP #### [facility] [address] [address] [address] Andrade AlvaradoBilirubin [Mass/Vol]0.5 mg/dLNormal0.2-1.0[facility] Comment on above:Performed By: #### CMP #### [facility] [address] [address] [address] Andrade AlvaradoCalcium [Mass/Vol]9.1 mg/dLNormal8.5-10.1[facility] Comment on above:Performed By: #### CMP #### [facility] [address] [address] [address] Andrade AlvaradoChloride [Moles/Vol]106 mmol/RPjwduv59-132Hyr [facility] Comment on above:Performed By: #### CMP #### [facility] [address] [place] [address] Dr. Andrade AlvaradoCO2 [Moles/Vol]25.6 mmol/CFnphcu05.0-32.0[facility] Comment on above:Performed By: #### CMP #### [facility] [address] [address] [address] Andrade AlvaradoCreatinine [Mass/Vol]0.97 mg/dLNormal0.55-1.02The [facility] HospitalComment on above:Performed By: #### CMP #### [facility] [address] [address] [address] Zafar ChangEGFR-AF CITIZEN OF [place]>60Normal>=60The [facility] HospitalComment on above:Performed By: #### CMP #### [facility] [address] [address] [address] Andrade MartinezGFR-NON AF XECENBPF46 mL/min/1.58r7Amfpltjqly low>=60The [facility] HospitalComment on above:Performed By: #### CMP #### [facility] [address] [address] [address] Andrade AlvaradoGlobulin (S) [Mass/Vol]3.2 g/dLNormSelect Medical Specialty Hospital - Boardman, IncComment on above:Performed By: #### CMP #### [facility] [address] [address] [address] Andrade AlvaradoGlucose [Mass/Vol]91 mg/vNOcympr06-494Vvf [facility] Comment on above:Performed By: #### CMP #### [facility] [address] [address] [address] Andrade AlvaradoPotassium [Moles/Vol]4.1 mmol/LNormal3.5-5.1The [facility] Comment on above:Performed By: #### CMP #### [facility] [address] [address] [address] Andrade AlvaradoProtein [Mass/Vol]7.4 g/dLNormal6.4-8.2[facility] Comment on above:Performed By: #### CMP #### [facility] [address] [address] [address] Andrade AlvaradoSodium [Moles/Vol]143 mmol/REgzfic907-058RhwCleveland Clinic Foundation Comment on above:Performed By: #### CMP #### [facility] [address] [address] [address] Andrade AlvaradoUrea nitrogen [Mass/Vol]18.0 mg/dLNormal7.0-18.0The [facility] HospitalComment on above:Performed By: #### CMP #### [facility] [address] [address] [address] Andrade AlvaradoUrea nitrogen/Creatinine [Mass ratio]18.6 mg/mgNormSelect Medical Specialty Hospital - [facility], IncComment on above:Performed By: #### CMP #### [facility] [address] [address] [address] Andrade Ellsworth RATE WESTERGRENon 31-36-8605GIF RATE15 mm/hrNormal<=30The [facility] HospitalComment on above:Performed By: #### SEDR #### [facility] [address] [address] [address] Andrade Montoya LEFT 3 VWSon 80-93-3089SYOR LEFT 3 SAN [facility]ni[facility] Department of Radiology [address] [place] [address] Patient Name: RADHA ZAIDI : [...] visible. Electronically signed: Eliezer Cam. Transcribed by: [email or web address], User Resident: Electronically Signed by: ELIEZER CAM @ 04/25/2020 11:44 [facility] CenterComment on above:Order Comment: EvaluateTIBIA FIBULA LEFTon 79-17-4155JWQRA FIBULA [facility] Department of Radiology [address] [place] [id number] Patient Name: RADHA ZAIDI : 1960 Sex: F Age: Race: White Pt. Location: Patient Status: Ordered Date: 03/27/2020 8:05:00 AM Completed Date: 03/27/2020 08:35 AM Requesting Provider: CHARLI LUKE Attending Provider: Report Copy To: Signs & Symptoms: S82.832A Oth fracture of upper and lower end of left fibula, init I10 History: [place] Comments: , , , Ordering Provider - [...] healing Electronically signed: Crissy Dubon. Transcribed by: [email or web address], User Resident: Electronically Signed by: CRISSY DUBON @ 03/27/2020 09:11 AMNormalThe [facility] Hillcrest HospitalComment on above:Order Comment: EvaluateOperative Report on 32-42-3533Lalbqrqaw ReportMR#: [id number] S [facility] Pt. Name: Radha Zaidi Room #: [...] were bluntly retracted. We then used a [place] as well as a hemostat to debride [...] Paniagua MD Date Trans: 03/13/2020 02:26 A/bryson DN_JN:[id number] cc: John Ashby D.O. [address] [place] [phone] City HospitalKN LEFT 1 OR 2 VWSon 45-45-9742KEAV LEFT 1 OR 2 SUniGuernsey Memorial Hospital Department of Radiology [address] [place] [id number] Patient Name: RADHA ZAIDI : 1960 [...] fracture. Electronically signed: Rahul James. Transcribed by: [email or web address], User Resident: Electronically Signed by: RAHUL JAMES @ 03/12/2020 03:20 PMNormalThe [facility] Clinic Hillcrest HospitalComment on above:Order Comment: EvaluatePOC GLUCOSE LAB on 55-78-2658Sanskvm [Mass/Vol]103 mg/nFIvft17-038KmmMarietta Memorial HospitalComment on above:Performed By: #### 20714 ####[facility]*MRSA/MSSA DNA NASALon 03-08-2020*MRSA/MSSA DNA NASALClinical Report: (D) Specimen: NASAL SWAB Collected: 03/08/2020 14:02 Status: Final Last Updated: 03/09/2020 09:30 MSSA DNA (Final) Negative MRSA DNA (Final) NegativeNormalThe [facility] Clinic Hillcrest HospitalComment on above:Performed By: #### [id number] ####[facility]*SARS-CoV-2 COVID-19on 87-29-2095FQWC-COVID-19Not DetectedNormal Not DetectedThe [facility] Clinic Hillcrest HospitalComment on above:Order Comment: The Aptima SARS-CoV-2 assay is a nucleic acid amplification test intended for the qualitative detection of RNA from SARS-CoV-2 isolated and purified from nasopharyngeal (SPIRAL RUNNER),oropharyngeal (OP), nasal swab, sputum, and bronchoalveolar lavage (BAL) specimens from patients with signs and symptoms of infection who are suspected of COVID-19. Results are for the identification of SARS-CoV-2 RNA. The SARS-CoV-2 RNA is generally detectable during the acute phase of infection. The Aptima SARS-CoV-2 Assay on the Mcgregor and Mcgregor Fusion system is intended for use by laboratory personnel specifically instructed and trained in the operation of the Mcgregor and Mcgregor Fusion system. The Aptima SARS-CoV-2 assay is [...] patient history, and epidemiological information.Performed By: #### [id number] #### [facility] [address] [place] [address], [facility] HOSPITALAPTTon 95-51-7169nDEN Coag (Bld) [Time]26.9 sNormal 25.0-35.0The [facility] HospitalComment on above:Result Comment: ALL RESULTS MUST [...] BE USED FOR THIS PURPOSE.Performed By: #### 01646, 21650 ####[facility] [place] [address], [facility] BASIC METABOLIC PANELon 78-54-7059Vwnxfru [Mass/Vol]9.7 mg/dLNormal8.6-10.3The [facility] HospitalComment on above:Performed By: #### 00445 #### [facility] [address] [place] [address], [facility]-LAG[facility]NA HOSPITALChloride [Moles/Vol]103 mmol/MBbrqid40-070Xtx [facility] HospitalComment on above:Performed By: #### 33936 #### [facility] [address] [place] [address], USACO2 [Moles/Vol]31 mmol/NZzyoqy64-89Tnj [facility] HospitalComment on above:Performed By: #### 90589 #### [facility] [address] [place] [address], USACreatinine [Mass/Vol]0.87 mg/dLNormal0.60-1.20The [facility] HospitalComment on above:Performed By: #### 60214 #### [facility] [address] [place] [address], USAGFR/1.73 sq M predicted among blacks MDRD (S/P/Bld) [Vol rate/Area]mL/min/{1.73_m2}Normal>60The [facility] Comment on above:Performed By: #### 61171 #### [facility] [address] [place] [address], USAGFR/1.73 sq M predicted among non-blacks MDRD (S/P/Bld) [Vol rate/Area]mL/min/{1.73_m2}Normal>60The [facility] Comment on above:Performed By: #### 51707 #### [facility] [address] [place] [address], USAGlucose [Mass/Vol]106 mg/cQYnvk33-540Ufj [facility] HospitalComment on above:Performed By: #### 56478 #### [facility] [address] [place] [address], USAPotassium [Moles/Vol]4.3 mmol/LNormal3.5-5.1The [facility] HospitalComment on above:Performed By: #### 99774 #### [facility] [address] [place] [address], USASodium [Moles/Vol]141 mmol/OQrnhqb451-558Wzb [facility] CenterComment on above:Performed By: #### 78989 #### [facility] [address] [place] [address], USAUrea nitrogen [Mass/Vol]14 mg/dLNormal7-25The [facility] HospitalComment on above:Performed By: #### 69064 #### [facility] [address] [facility] [address], USACBC W/DIFFon 98-43-3056ZBD BASOPHILS0.1 10*3/uLNormal 0.0-0.2The [facility] HospitalComment on above:Performed By: #### 59128 ####[facility] [facility] [place] [address], USAABS IMM GRANS0.0 10*3/uLNormal0.0-0.2The [facility] HospitalComment on above:Performed By: #### 06497 ####[facility] [facility] [place] [address], [facility]-LAG[facility]NA HOSPITALABS NEUTROPHILS3.4 10*3/uLNormal 1.6-7.6The [facility] HospitalComment on above:Performed By: #### 30023 ####[facility] [facility] [place] [address], [facility] HOSPITALBasophils/100 WBC (Bld)0.8 %Normal0.0-1.0The [facility] HospitalComment on above:Performed By: #### 94660 ####[facility] [facility] [place] [address], [facility] HOSPITALEosinophils (Bld) [#/Vol] 0.7 10*3/uLHigh0.0-0.5The [facility] HospitalComment on above: Performed By: #### 04167 ####[facility] [facility] [place] [address], [facility] HOSPITALEosinophils/100 WBC (Bld)9.5 %High0.0-6.0The [facility] HospitalComment on above:Performed By: #### 88143 ####[facility] [place] [address], [facility] Erythrocyte distribution width (RBC) [Ratio]13.6 %Ytwcfw70.5-15.0The [facility] HospitalComment on above:Performed By: #### 51659 ####[facility] [facility] [place] [address], USAHematocrit (Bld) [Volume fraction]42.5 %Fstdyt53.0-45.0The [facility] HospitalComment on above:Performed By: #### 28558 ####[facility] [facility] [place] [address], USAHemoglobin (Bld) [Mass/Vol]13.7 g/oJLmgniw61.0-15.0The [facility] HospitalComment on above: Performed By: #### 37362 ####[facility] [place] [address], USAIMMATURE GRANS0.3 %Normal0.0-1.0The [facility] HospitalComment on above:Performed By: #### 10109 ####[facility] [facility] [place] [address], USALymphocytes (Bld) [#/Vol]2.7 10*3/uLNormal1.2-4.0The [facility] HospitalComment on above:Performed By: #### 00332 ####[facility] [facility] [place] [address], USALymphocytes/100 WBC (Bld)35.1 %Normal 20.0-45.0The [facility] HospitalComment on above:Performed By: #### 35328 ####[facility] [facility] [place] [address], USAMCH (RBC) [Entitic mass]31.2 niPucnab97.0-33.0The [facility] HospitalComment on above:Performed By: #### 15967 ####[facility] [place] [address].[place] [address], [facility]-LAG[facility]NA HOSPITALMCHC (RBC) [Mass/Vol]32.2 g/nEQvilcs50.0-35.0The [facility] HospitalComment on above: Performed By: #### 87304 ####[facility] [place] [address], [facility] HOSPITALMCV (RBC) [Entitic vol]96.8 lLFoyqsx99.0-98.0The [facility] HospitalComment on above:Performed By: #### 18735 ####[address] [place] [address], [facility] Monocytes (Bld) [#/Vol]0.8 10*3/uLNormal0.1-1.0The [facility] HospitalComment on above:Performed By: #### 375[address] ####[place] [address], [facility] HOSPITALMONOS9.8 %Normal5.0-12.0The [facility] HospitalComment on above:Performed By: #### 39729 ####[address] [place] [address], [facility] Neutrophils/100 WBC (Bld)44.5 %Ktriru63.0-72.0The [facility] HospitalComment on above:Performed By: #### 29378 ####[address] [place] [address], [facility]NA HOSPITALNucleated RBC/100 WBC (Bld) [Ratio]0 %Normal0-0The [facility] HospitalComment on above: Performed By: #### 45566 ####[address] [place] [address], [facility]-CANON[facility]-LAGUNA HOSPITALPLAT SUS227 10*3/oUXninmx798-819Tzw [facility] HospitalComment on above:Performed By: #### 95909 ####[facility] [facility] [place] [address], [facility]-CANON[facility]-LAG[facility]NA HOSPITALRBC (Bld) [#/Vol] 4.39 10*6/uLNormal3.80-5.00The [facility] HospitalComment on above:Performed By: #### 65024 ####[facility] [facility] [place] [address], [facility]-CANON[facility]-LAG[facility]NA HOSPITALWBC (Bld) [#/Vol]7.72 10*3/uLNormal4.00-10.60 The [facility] HospitalComment on above:Performed By: #### 29399 ####[facility] [facility] [place] [address], [facility] PROTHROMBIN TIMEon 83-59-3540JCU Coag (PPP) [Relative time]0.99 {INR}Normal 0.91-1.16The [facility] HospitalComment on above:Result Comment: ACCCP RECOMMENDED INR [...] OPTIMAL THERAPEUTIC RANGE. CHEST 1995;108:231S-246S.Performed By: #### 79000, 79720 #### [facility] [address] [place] [address], USAPT Coag (PPP) [Time]13.1 iFltazw33.3-14.8The [facility] HospitalComment on above:Result Comment: ALL RESULTS MUST BE INTERPRETED WITH RESPECT TO BLOOD DRAWING ARTIFACT OR DILUTION ERROR OF ANTICOAGULANT AT THE TIME OF SAMPLING.Performed By: #### 09749, 84065 #### [facility] [address] [place] [address], USAALBUMIN BLOODon 36-05-5843Mgwhhcy [Mass/Vol]4.5 g/dLNormal 3.5-5.7The [facility] HospitalComment on above:Performed By: #### 51757, 43996, 15745, 65135, 68617 #### [facility] [address] [place] [address], USABASIC METABOLIC PANELon 51-49-8317Oosejvx [Mass/Vol]9.5 mg/dLNormal8.6-10.3The [facility] HospitalComment on above: Performed By: #### 33893, 84931, 08413, 42064, 72943 #### [facility] [address] [place] [address], USAChloride [Moles/Vol]105 mmol/RMhgoic83-310Mva [facility] HospitalComment on above:Performed By: #### 31209, 35945, 03067, 71409, 32450 #### [facility] [address] [place] [address], USACO2 [Moles/Vol]27 mmol/KVxutjq27-65Ikl [facility] HospitalComment on above:Performed By: #### 19393, 99375, 05496, 90459, 72097 #### [facility] [address] [place] [address], USACreatinine [Mass/Vol]0.81 mg/dLNormal0.60-1.20The [facility] HospitalComment on above:Performed By: #### 44038, 78404, 86991, 38422, 31253 #### [facility] [address] [place] [address], USAGFR/1.73 sq M predicted among blacks MDRD (S/P/Bld) [Vol rate/Area]mL/min/{1.73_m2}Normal>60The [facility] Comment on above:Performed By: #### 09114, 70504, 49172, 41392, 04861 #### [facility] [address] [place] [address], USAGFR/1.73 sq M predicted among non-blacks MDRD (S/P/Bld) [Vol rate/Area]mL/min/{1.73_m2}Normal>60The [facility] Comment on above:Performed By: #### 22711, 26614, 83360, 96180, 73621 #### [facility] [address] [place] [address], USAGlucose [Mass/Vol]115 mg/jFDeur56-745Grm [facility] HospitalComment on above:Performed By: #### 03264, 70365, 15933, 16703, 61399 #### [facility] [address] [place] [address], USAPotassium [Moles/Vol]3.9 mmol/LNormal3.5-5.1The [facility] HospitalComment on above:Performed By: #### 28544, 75964, 86259, 26526, 87108 #### [facility] [address] [place] [address], USASodium [Moles/Vol]140 mmol/FPhmtjl548-084Quw [facility] HospitalComment on above:Performed By: #### 25450, 74610, 77619, 18421, 30536 #### [facility] [address] [place] [address], USAUrea nitrogen [Mass/Vol]20 mg/dLNormal7-25The [facility] HospitalComment on above:Performed By: #### 11846, 02459, 36975, 63930, 96602 #### [facility] [address] [place] [address], USAPREALBUMINon 53-29-6489Guetsmfgyu [Mass/Vol]24.0 mg/dL Ngjwcu18.0-34.0The [facility] HospitalComment on above:Performed By: #### 61695, 71345, 47566, 64629, 89550 #### [facility] [address] [place] [address], USATIBIA FIBULA LEFTon 03-21-5904GEBFF FIBULA LEFTUnWVUMedicine Barnesville Hospital Department of Radiology [address] [place] [id number] Patient Name: RADHA ZAIDI : 1960 [...] indicated. Electronically signed: Eliezer Randolph. Transcribed by: [email or web address], User Resident: Electronically Signed by: ELIEZER RANDOLPH @ 02/04/2020 10:34 AMNormalThe [facility] HospitalTRANSFERRINon 14-65-2710Aznusvhpzcx [Mass/Vol]270 mg/vBJftbea867-129Xrt [facility] HospitalComment on above:Performed By: #### 34847, 89060, 91909, 19701, 39604 #### [facility] [address] [facility] [place] [address], USAVITAMIN D 25-HYDROXYon 22-71-1825LDNEYED D 25-OH38.5 ng/mL Btmomb52.0-80.0The [facility] HospitalComment on above:Result Comment: >80.0 Toxicity possiblePerformed By: #### 55186, 10770, 67883, 16602, 21832 #### [facility] [address] [facility] [place] [address], USAFLUORO FOR SURGICAL PROCEDURESon 64-09-3398KBRXJE FOR SURGICAL PROCEDURESExam: FLUORO FOR SURGICAL PROCEDURESHistory: ACDF Fusion Findings: Fluoroscopy time was 70 seconds A total of 19 fluoroscopic images were obtained by Dr. Cheng during the anterior cervical discectomy inthe lower cervical spine.IMPRESSION: Impression: Fluoroscopic assistance provided for operative guidance.Interpreted by:DIANA Lealigned by:Eugene Cancino MD4//18Final resultNormalSt. Anthony North Health CampusBasic Metabolic Panelon 63-24-9699Phvoe gap15 mmol/LCritically high7-13[facility] Calcium9.6 mg/dLNormal8.6-10.2MSt. Francis HospitalChloride102 mmol/L Gylwtu32-293ThjdlSt. Anthony North Health CampusCO223 mmol/EZblgzo28-47GpvtwSt. Anthony North Health CampusCreatinine0.54 mg/dLNormal0.50-0.90[facility] eGFR (black)mL/min/{1.73_m2}Normal>60St[facility] Health CampusComment on above:Result Comment: >60 mL/min/1.73m2 EGFR, calc. for ages 18 and older using theMDRD formula (not corrected for weight), is valid for stablerenal function. eGFR (MDRD)mL/min/{1.73_m2}Normal>60St[facility] Health CampusComment on above:Result Comment: >60 mL/min/1.73m2 EGFR, calc. for ages 18 and older using theMDRD formula (not corrected for weight), is valid for stablerenal function. Glucose mass conc97 mg/oQIujqzr83-314RrrcoSt. Anthony North Health CampusPotassium molar conc4.8 mmol/LNormal3.5-5.1MMontrose Memorial Hospitalodium140 mmol/L Acbzff603-640XrjmvSt. Anthony North Health CampusUrea rcrohlaz82 mg/dLNormal6-20[facility]. [facility] CampusCBC With Platelet No Differentialon 29-70-2156Ldvtikdkwiz distribution width Auto Ratio (RBC)13.3 %Sijwfj34.5-14.5St. [facility] Health CampusErythrocytes (RBC)4.96 10*6/uLNormal4.20-5.40[facility] Hematocrit (HCT)47.1 %Critically high37.0-47.0[facility] Hemoglobin mass conc (Bld)16.2 g/dLCritically high12.0-16.0St[facility] Health CampusMCH32.7 pgCritically high27.0-31.3MSt. Francis Hospital MCHC mass conc (RBC)34.4 %Mfryil25.0-37.0[facility] CampusMCV95.0 fL Lkydza03.0-100.0St. [facility] Health CampusPlatelets223 10*3/sYHwjwtg731-078 [facility] Health CampusWBC (Leukocytes)6.2 10*3/uLNormal4.8-10.8St. [facility] Health CampusCulture, MRSA Screenon 48-10-6320Twgockc, MRSA Screen ORDERED BY: VITO STALLWORTH: Nares Nose COLLECTED: 10/13/17 13:18[facility].: RECEIVED : 10/13/17 13:18Culture, MRSA Screen FINAL 10/14/17 13:59 No MRSA isolatedNoCedar Springs Behavioral HospitalPartial Thromboplastin Timeon 77-72-1852oSQB61.9 iUguccr46.6-35.4St. [facility] CampusComment on above:Result Comment: Heparin Therapeutic Range: 38.8 - 54.6 seconds.Prothrombin Timeon 17-72-4521GZG Coag RelTime (PPP)1.0 {INR}NormalSt. Anthony North Health CampusComment on above:Result Comment: Recommended INR therapeutic ranges [...] Prothrombin time (PT) Coag time (PPP)10.0 sNormal8.1-13.7St. [facility] Health CampusType and Screen Capture 3 scrn cellon 95-89-3696Jbzirggoi (total)PATIENT: DYAN GARCIA LOC: [place] BILL# : [id number] : 1960 SEX: FORDERED BY: BASIM CHENG ORDERED : 10/13/2017 12:41 COLLECTED: 10/13/2017 13:24ORDER : [id number] RECEIVED : 10/13/2017 13:24 ---TEST NAME RESULT UNITS RANGES ABN FL STABORH Capture A POS FAntibody 3 Cell Scrn Captu NEG F NormalSt. Anthony North Health CampusUrinalysis, reflex to cultureon 04-49-1585Rgrxerydw Ql (U) NegativeNormalNegMt. San Rafael HospitalUrine Reflexed to CultureNot IndicatedNoCedar Springs Behavioral HospitalUrine, clarityClearNormalClearSt. Anthony North Health CampusUrine, colorYellowNormalStraw/YellSt. Anthony North Health CampusUrine, glucose presenceNegativeNormalNegMt. [facility] Hospital Urine, hemoglobin presenceNegativeNormalNegMt. [facility] Hospital Urine, ketones presenceNegativeNormalNegMt. San Rafael HospitalUrine, leukocyte esterase presenceNegativeNormalNegMt. [facility] Hospital Urine, nitrite presenceNegativeNormalNegMt. San Rafael HospitalUrine, pH5.5 [pH]Normal5.0-9.0[facility]. [facility] CampusUrine, protein presence NegativeNormalNegMt. San Rafael HospitalUrine, specific gravity1.018 Normal1.005-1.03St. [facility] Health CampusUrine, urobilinogen0.2 {Rajwinder'U}/dLNormal< 2.0[facility] Vital Signs Date TimeVital SignValuePerforming UvbdjrvfyEwrmvhzn80-73-9178 10:55-0500Body haqlbf557.6 cmJordan Yuan Chegg Work Phone: noDepartment of Health and Human ServicesKqdyalzdjw11-13-7361 10:55-0500Body mass index (BMI) [Ratio]28.15 kg/l1YbsemJordan Yuan Chegg Work Phone: [facility] HospitalMuddxuzlad21-74-8228 10:55-0500Body vqkjek74.39 kgJaroman Brown DO Work Phone: [facility] HospitalQzlrcrdoor07-40-1040 18:36-0400Diastolic blood srutrgms27 mm[Hg]John Ball DO Work Phone: 1(488)[address] [place], [place] 7834210-20-2025 18:36-0400 Heart rate72 /minBenjamin Ball DO Work Phone: 1(130)[address] [place], [place] 7834210-20-2025 18:36-0400 Inhaled oxygen flow rate15 L/minBenjamin Ball DO Work Phone: 1(623)[address] [place], [place] 7834210-20-2025 18:36-0400 Respiratory rate16 /minBenjamin Ball DO Work Phone: 1(740)[address] [place], [place] 7834210-20-2025 18:36-0400 SaO2% (BldA) [Mass fraction]94 %John Ball DO Work Phone: 1(278)[address] [place], [place] 7834210-20-2025 18:36-0400 Systolic blood wswbohfp491 mm[Hg]John Ball DO Work Phone: 1(191)[address] [place], [place] 7834210-20-2025 18:16-0400 Inhaled oxygen rsyecknaogfdl289 %John Ball DO Work Phone: 1(508)[address] [place], [place] 7834210-20-2025 15:30-0400 Body .1 cmBenjamin Ball DO Work Phone: 1(005)[address] [place], [place] 7834210-20-2025 15:30-0400 Body gyawfeexhkv09 [degF]John Ball DO Work Phone: 1(020)[address] [place], [place] 7834210-20-2025 15:30-0400 Body lvrxaz56.43 kgBenjamin Ball DO Work Phone: 1(332)[address] [place], [place] 7834208-27-2025 09:22-0400 Body eltktx870.1 cmBenjamin Ball DO Work Phone: 1(152)[address] [place], [place] 7834208-27-2025 09:22-0400 Body mass index (BMI) [Ratio]20.5 kg/c1Nudqyrot Ball DO Work Phone: 1(552)332-[address] [place], [place] 3704908-27-2025 09:22-0400 Body wsyebb88.84 kgBenjamin Ball DO Work Phone: 1(009)608-[address] [place], [place] 3704908-27-2025 09:22-0400 Diastolic blood mm[Hg]John Ball DO Work Phone: 1(691)793-[address] [place], [place] 3704908-27-2025 09:22-0400 Heart rate80 /minBenjamin Ball DO Work Phone: 1(594)[address]08-27-2025 09:22-0400 Respiratory rate12 /minBenjamin Ball DO Work Phone: 1(035)[address]08-27-2025 09:22-0400 Systolic blood dfxqagkd206 mm[Hg]John Ball DO Work Phone: 1(058)[address]04-29-2025 14:11-0400 Body .1 cmBenjamin Ball DO Work Phone: 1(280)[facility] [place], [place] 3704904-29-2025 14:11-0400 Body mass index (BMI) [Ratio]22.1 kg/p7Bvkfzple Ball DO Work Phone: 1(826)[facility] [place], [place] 3704904-29-2025 14:11-0400 Body avrlej65.44 kgBenjamin Ball DO Work Phone: 1(791)[address]03-27-2025 14:49-0400 Body rellop343.6 cmJason Brown DO Work Phone: [facility] HospitalXgxgfqtvql04-47-1691 14:49-0400Body mass index (BMI) [Ratio]28.15 kg/t2Hkjss Brown DO Work Phone: [facility] HospitalQpmtqpclcn01-63-0480 14:49-0400Body bjxekz06.39 kgJason Brown DO Work Phone: [facility] [phone] 10:34-0400Body olvpbz624.1 [facility] 10:34-0400Body mass index (BMI) [Ratio]22.1 kg/o9RaunswieqDayton [facility] Center03-18-2025 10:34-0400Body bezxjd37.44 kgDay[facility]03-18-2025 10:34-0400Diastolic blood whxcbcma82 mm[Hg][facility]03-18-2025 10:34-0400 Heart rate72 /[facility]03-18-2025 10:34-0400 Respiratory rate16 /[facility]03-18-2025 10:34-0400 SaO2% (BldA) [Mass fraction]97 %[facility]03-18-2025 10:34-0400Systolic blood hdofjiwk234 mm[Hg][facility] 09-18-2024 10:17-0400Body .6 cmJordan Zoom Work Phone: [phone] [place], [place] [address]Drwsvxarow00-50-7991 10:17-0400Body mass index (BMI) [Ratio]28.15 kg/o4Rscyh [employer] Phone: [phone]03-11-2025 10:17-0400Body doqrjc30.39 kgoJrdan Zoom Work Phone: 1(448)4-[address] [place], [place] [address]Fipruljcda45-73-5823 15:44-0500Body hgealm979.1 cm[facility]02-[facility]-2025 15:44-0500Body mass index (BMI) [Ratio]22 kg/o9WllteprbyDayton Va Medical Center02-19-2025 15:44-0500Body weight 60.04 kgDay[facility]02-19-2025 15:44-0500Diastolic blood chaglgcx11 mm[Hg][facility]02-19-2025 15:44-0500Heart rate57 /[facility]02-19-2025 15:44-0500Respiratory rate12 /[facility]02-19-2025 15:44-0500Systolic blood vcotscsh418 mm[Hg][facility]01-07-2025 15:06-0500Body nfunlg430.6 cmJordan Yuan DO Work Phone: [phone] [place], [place] 6835701-07-2025 15:06-0500Body mass index (BMI) [Ratio]28.15 kg/o1OxczbJordan Yuan DO Work Phone: [phone])[address] [place], [place] 6835701-07-2025 15:06-0500Body irsbpg09.39 kgJordan Yuan DO Work Phone: 1([phone])[address] [place], [place] 6835711-26-2024 14:20-0500Body mxehbg054.6 cmJordan Yuan DO Work Phone: [phone])[address] [place], [place] 6835711-26-2024 14:20-0500Body mass index (BMI) [Ratio]28.15 kg/v5DscjvJordan Yuan DO Work Phone: 1(123)[address] [place], [place] 6835711-26-2024 14:20-0500Body temperature 97.5 [degF]Jordan Yuan DO Work Phone: 1([phone])[address] [place], [place] 6835711-26-2024 14:20-0500Body opxfmy31.39 kgJordan Yuan DO Work Phone: 1(817)[address] [place], [place] 6835710-29-2024 10:38-0400Body omdnyr767.6 cmJordan Yuan DO Work Phone: [phone])[address] [place], [place] 6835710-29-2024 10:38-0400Body mass index (BMI) [Ratio]28.15 kg/m3PmeugJordan Yuan DO Work Phone: [phone] [place], [place] 6835710-29-2024 10:38-0400Body temperature 97.39 [degF]Jordan Yuan DO Work Phone: 1(106)[address] [place], [place] 6835710-29-2024 10:38-0400Body iuvvbz27.39 kgJordan Yuan DO Work Phone: [phone])[address] [place], [place] 6835710-18-2024 13:08-0400Heart rate80 /min Jordan Yuan [address] [place], [place] 9850210-18-2024 13:08-4347RaT6% (BldA) [Mass fraction]94 %Jordan Yuan [address] [place], [place] 5482710-18-2024 13:08-0400Blood Pressure LocationJordan Yuan [address] [place], [place] 5482710-18-2024 13:08-0400 Diastolic blood agaaklzc58 mm[Hg]Jordan Yuan [address] [place], [place] 5482710-18-2024 13:08-0400Mean blood ixqegohc79 mm[Hg]Jordan Yuan [address] [place], [place] 5482710-18-2024 13:08-0400 Systolic blood nydwpgeq396 mm[Hg]Jordan Yuan [address] [place], [place] 5482710-18-2024 13:08-0400 Respiratory rate18 /Cyndy Yuan [address] [place], [place] 5482710-18-2024 11:23-0400Heart rate72 /Cyndy Yuan [address] [place], [place] 5482710-18-2024 11:23-2549RqE8% (BldA) [Mass fraction]100 %Jordan Yuan [address] [place], [place] 5482710-18-2024 11:22-0400Blood Pressure LocationJordan Yuan [address] [place], [place] 5482710-18-2024 11:22-0400 Diastolic blood zrkauhwe32 mm[Hg]Jordan Yuan [address] [place], [place] 5482710-18-2024 11:22-0400Mean blood cxxqenry29 mm[Hg]Jordan Yuan [address] [place], [place] 5482710-18-2024 11:22-0400 Systolic blood mm[Hg]Jordan Yuan [address] [place], [place] 5482710-18-2024 11:22-0400 Respiratory rate18 /minJordan Yuan [address] [place], [place] 5482710-18-2024 11:15-0400Blood Pressure LocationJordan Yuan [address]10-18-2024 11:15-0400Body .16 [degF]Jordan Yuan [address] [place], [place] 5482710-18-2024 11:15-0400 Diastolic blood tkqqibyz48 mm[Hg]Jordan Yuan [address] [place], [place] 5482710-18-2024 11:15-0400Heart rate79 /Cyndy Yuan [address] [place], [place] 5482710-18-2024 11:15-0400Mean blood nzdyqebp76 mm[Hg]Jordan Yuan [address] [place], [place] 5482710-18-2024 11:15-0400 Respiratory rate20 /Cyndy Yuan [address] [place], [place] 5482710-18-2024 11:15-1584WpQ5% (BldA) [Mass fraction]100 %Jordan Yuan [address] [place], [place] 5482710-18-2024 11:15-0400 Systolic blood mm[Hg]Jordan Yuan [address] [place], [place] 5482710-18-2024 11:05-0400Mean blood sqmyhfsz26 mm[Hg]Jordan Yuan [address] [place], [place] 5482710-18-2024 11:05-0400 Respiratory rate16 /Cyndy Yuan [address] [place], [place] 9850210-18-2024 10:50-0400Mean blood ryfofbth33 mm[Hg]Jordan Yuan [address] [place], [place] 5482710-18-2024 10:50-0400 Respiratory rate9 /Cyndy Yuan [address] [place], [place] 5482710-18-2024 10:10-0400Body .16 [degF]Jordan Yuan [address] [place], [place] 5482710-18-2024 10:05-0400 Respiratory rate12 /Cyndy Yuan [facility]10-18-2024 06:23-0400Mean blood nbkzsxdi47 mm[Hg]Jordan Yuan [facility]10-18-2024 06:22-0400Body ewkugiytjxq37.7 [degF]Jordan Yuan [facility]10-08-2024 15:14-0400Body .1 [facility] 15:14-0400Body mass index (BMI) [Ratio]23.1 kg/u6TnhwchypyDayton Va Medical Center10-08-2024 15:14-0400Body tnsobq27.16 [facility]10-08-2024 15:14-0400Diastolic blood mm[Hg][facility] 04-17-2024 15:14-0400Heart rate84 /[facility] 04-17-2024 15:14-0400Respiratory rate12 /[facility] 04-17-2024 15:14-0400Systolic blood cvhlgryo911 mm[Hg][facility]09-17-2024 16:24-0400Body qsyvum669.1 cmDay[facility] 03-27-2024 16:24-0400Body mass index (BMI) [Ratio]23.9 kg/n1NbchodbxdDayton Va Medical Center09-17-2024 16:24-0400Body cfssiy35.31 [facility]09-17-2024 16:24-0400Diastolic blood ouauisnc78 mm[Hg][facility]09-17-2024 16:24-0400Heart rate87 /[facility]09-17-2024 16:24-0400Respiratory rate12 /[facility]09-17-2024 16:24-0400Systolic blood cqoezubf203 mm[Hg][facility]09-09-2024 12:28-0400Diastolic blood thpaovko12 mm[Hg]Jordan Yuan [address] [place], [place] 9850209-09-2024 12:28-0400 Systolic blood uthheiow204 mm[Hg]Jordan Yuan [address] [place], [place] 9850209-09-2024 12:27-0400Blood Pressure LocationJordan Yuan [address]09-09-2024 12:27-0400Body cwjyiyyjqof66.88 [degF]Jordan Yuan [address] [place], [place] 9850209-09-2024 12:27-0400 Diastolic blood qxmzgilu35 mm[Hg]Jordan Yuan [address]09-09-2024 12:27-0400Heart rate75 /minJordan Yuan [address] [place], [place] 5482709-09-2024 12:27-0400Mean blood kmjaxtrn95 mm[Hg]Jordan Yuan [address]09-09-2024 12:27-0400 Respiratory rate15 /minJordan Yuan [address] [place], [place] 9850209-09-2024 12:27-7107NuP0% (BldA) [Mass fraction]97 %Jordan Yuan [address] [place], [place] 9850209-09-2024 12:27-0400 Systolic blood mcqiiwgy500 mm[Hg]Jordan Yuan [address] [place], [place] 5482708-21-2024 09:29-0400Body nosgum602.1 cmDay[facility]08-21-2024 09:29-0400Body mass index (BMI) [Ratio]24.1 kg/v0SeotidrabDayton Va Medical Center08-21-2024 09:29-0400Body .82 kgDay[facility] Center08-21-2024 09:29-0400Diastolic blood hjkygjwc65 mm[Hg][facility] 02-29-2024 09:29-0400Heart rate74 /[facility] 02-29-2024 09:29-0400Respiratory rate12 /[facility] 02-29-2024 09:29-0400Systolic blood wpkafgas316 mm[Hg][facility]06-19-2024 15:31-0400Body urmyvw208.1 cmDay[facility] 12-28-2023 15:31-0400Body mass index (BMI) [Ratio]25.7 kg/r6YeesiyisqDayton Va Medical Center06-19-2024 15:31-0400Body .08 [facility]06-19-2024 15:31-0400Diastolic blood oplkkdqe04 mm[Hg][facility]06-19-2024 15:31-0400Heart rate92 /[facility]06-19-2024 15:31-0400Respiratory rate12 /[facility]06-19-2024 15:31-0400Systolic blood tleynqnt406 mm[Hg][facility]05-07-2024 15:42-0400Body .6 Calixto Zoom Work Phone: 1(245)021-[address] [place], [place] [address]Fhwtomgwdc14-36-7567 15:42-0400Body mass index (BMI) [Ratio]28.15 kg/z5Fadvr Zoom Work Phone: [facility] HospitalZhfvwcjljm94-69-3116 15:42-0400Body briyvi09.39 kgJordan Yuan [employer] Work Phone: [phone] [place], [place] [address]Gruryyemcx74-59-6334 15:16-0400Body .1 cm[facility]03-20-2024 15:16-0400Body mass index (BMI) [Ratio]27.8 kg/r2RoohlsnmyDayton Va Medical Center03-20-2024 15:16-0400Body fcxgec42.92 [facility]03-20-2024 15:16-0400Diastolic blood rgouvclw11 mm[Hg][facility]03-20-2024 15:16-0400 Heart rate80 /[facility]03-20-2024 15:16-0400 Respiratory rate12 /minDay[facility] Medical Center03-20-2024 15:16-0400 Systolic blood mm[Hg][facility]02-26-2024 21:48-0500Body pmzucq461.37 cmBenjamin Ball Other [employer] Other 02-26-2024 16:33-0500Body uzazhr835.1 cmDay[facility]02-26-2024 16:33-0500Body mass index (BMI) [Ratio]28.5 kg/b1CtprkzdbmDayton Va Medical Center02-26-2024 16:33-0500Body .79 kg [facility]02-26-2024 16:33-0500Diastolic blood apqlohzi68 mm[Hg][facility]02-26-2024 16:33-0500Heart rate97 /min [facility]02-26-2024 16:33-0500Systolic blood yflsptkp601 mm[Hg][facility]02-08-2024 15:40-0500Body .6 cm Jordan Yuan DO Work Phone: [employer] [phone] 15:40-0500Body mass index (BMI) [Ratio]28.15 kg/t2UqlyaJordan Yuan [employer] Work Phone: noDepartment of Health and Human ServicesZmcgtgurbu92-08-8960 15:40-0500Body temperature 97.11 [degF]Jordan Yuan DO Work Phone: noDepartment of Health and Human ServicesGeialfnyfh22-72-4478 15:40-0500Body bxeqdj80.39 kgJordan Yuan [employer] Work Phone: noDepartment of Health and Human ServicesSbpokmfiyc69-73-5967 15:00-0500Body .37 cmBenjamin Ball Other [employer] Other 02-07-2024 15:00-0500Body mass index (BMI) [Ratio] 28.12 kg/z1Syanxxhm Ball Other [employer] Other 02-07-2024 15:00-0500Body xovtmk49.84 kgBenjamin Ball [facility] [employer] Other 02-07-2024 15:00-0500Diastolic blood yifzoqrf50 mm[Hg] John Ball [facility] [employer] Other 02-07-2024 15:00-0500Respiratory rate12 /minBenjamin Ball Other [facility] [employer] [facility] Other 02-07-2024 15:00-0500Systolic blood vdppsizu490 mm[Hg] John Ball [facility] [employer] [facility] Other 09-28-2023 14:00-0400Body jfqzwuwfpzh62.52 [degF]Jordanroman Yuan [facility]09-28-2023 14:00-0400 Diastolic blood ntudfoad54 mm[Hg]Jordan Yuan [facility]09-28-2023 14:00-0400Heart rate88 /Cyndy Yuan [facility]09-28-2023 14:00-0400Mean blood hmmegxmf61 mm[Hg]Jordan Anderson [facility]09-28-2023 14:00-0929ZeZ4% (BldA) [Mass fraction]94 %Jordan Yuan [facility]09-28-2023 14:00-0400 Systolic blood pgypiiwv458 mm[Hg]Jordan Anderson [facility]09-28-2023 08:47-0400 Diastolic blood zmtzujqs46 mm[Hg]Jordan Anderson [facility]09-28-2023 08:47-0400 Systolic blood mm[Hg]Jordan Yuan [address] [place], [place] 9850209-28-2023 07:45-0400Blood Pressure LocationJordan Yuan [address] [place], [place] 9850209-28-2023 07:45-0400Body gbqxjbqazjy23.88 [degF]Jordan Yuan [address] [place], [place] 9850209-28-2023 07:45-0400 Diastolic blood ayhchqgb21 mm[Hg]Jordan Yuan [address] [place], [place] 9850209-28-2023 07:45-0400Heart rate72 /Cyndy Yuan [address] [place], [place] 5482709-28-2023 07:45-0400 Hourly RoundingJordan Yuan [address] [place], [place] 5482709-28-2023 07:45-0400Mean blood mm[Hg]Jordan Yuan [address] [place], [place] 9850209-28-2023 07:45-0400 Promise to ReturnJordan Yuan [address] [place], [place] 9850209-28-2023 07:45-0400 Respiratory rate16 /Cyndy Yuan [address] [place], [place] 9850209-28-2023 07:45-7799SmC7% (BldA) [Mass fraction]96 %Jordan Yuan [address] [place], [place] 9850209-28-2023 07:45-0400 Systolic blood tsndpidi559 mm[Hg]Jordan Yuan [address] [place], [place] 9850209-28-2023 06:17-0400 Hourly RoundingJordan Yuan [address] [place], [place] 9850209-28-2023 06:17-0400 Promise to ReturnJordan Yuan [address] [place], [place] 9850209-28-2023 05:05-0400 Hourly RoundingJordan Yuan [address] [place], [place] 9850209-28-2023 05:05-0400 Promise to ReturnJordan Yuan [address] [place], [place] 9850209-27-2023 22:20-0400Blood Pressure LocationJordan Yuan [address] [place], [place] 5482709-27-2023 22:20-0400Body blarnyxymuy80.24 [degF]Jordan Yuan [address] [place], [place] 9850209-27-2023 22:20-0400Heart rate74 /Cyndy Yuan [address] [place], [place] 9850209-27-2023 22:20-0400Mean blood emmpxeqg69 mm[Hg]Jordan Yuan [address] [place], [place] 5482709-27-2023 22:20-0400 Respiratory rate16 /Cyndy Yuan [address] [place], [place] 9850209-27-2023 22:20-3316MtW7% (BldA) [Mass fraction]93 %Jordan Yuan [address] [place], [place] 9850209-27-2023 20:10-0400Heart rate65 /Cyndy Yuan [address] [place], [place] 9850209-27-2023 20:01-0400Body aiucwzgiawn48.34 [degF]Jordan Yuan [address] [place], [place] 9850209-27-2023 20:00-0400Mean blood mm[Hg]Jordan Yuan [address] [place], [place] 9850209-27-2023 16:17-0400Mean blood nyuyvdwi70 mm[Hg]Jordan Yuan [address] [place], [place] 5482709-27-2023 16:16-0400Body wrqszhlbohf92.52 [degF]Jordan Yuan [address] [place], [place] 5482709-27-2023 13:49-0400Mean blood yvdmznsm58 mm[Hg]Jordan Yuan [address]09-27-2023 12:45-0400 Respiratory rate13 /Cyndy Yuan [address] [place], [place] 5482709-27-2023 12:35-0400 Respiratory rate10 /Cyndy Yuan [address] [place], [place] 9850209-27-2023 12:20-0400 Respiratory rate17 /Cyndy Yuan [address] [place], [place] 5482709-27-2023 11:37-0400Body gokcirvgsdd22.98 [degF]Jordan Yuan [address] [place], [place] 5482709-27-2023 06:39-0400Heart rate68 /Cyndy Yuan [address] [place], [place] 5482709-14-2023 14:52-0400 Diastolic blood xxfragxm88 mm[Hg]Jordan Yuan [address] [place], [place] 9850209-14-2023 14:52-0400Heart rate67 /Cyndy Yuan [address] [place], [place] 9850209-14-2023 14:52-0400Mean blood jjmcigqc54 mm[Hg]Jordan Yuan [address] [place], [place] 9850209-14-2023 14:52-0400 Systolic blood rmifowct837 mm[Hg]Jordan Yuan [address] [place], [place] 9850209-14-2023 14:52-0400Heart rate68 /Cyndy Yuan [address] [place], [place] 9850209-14-2023 14:52-1996QbT5% (BldA) [Mass fraction]99 %Jordan Yuan [address] [place], [place] 9850209-14-2023 14:52-0400 Diastolic blood kuzoiehk27 mm[Hg]Jordan Yuan [facility]09-14-2023 14:52-0400Mean blood htfnbdir42 mm[Hg]Jordan Yuan [facility]09-14-2023 14:52-0400 Systolic blood jxkizzzo333 mm[Hg]Jordan Yuan [facility]09-14-2023 14:51-0400 Respiratory rate16 /minJordan Yuan [facility]07-03-2023 15:00-0400Body mezgpf610.37 cmBenjamin Ball Other [facility] [employer] Other 07-03-2023 15:00-0400Body mass index (BMI) [Ratio] 27.04 kg/i8Oefjirvi Ball Other [facility] [employer] Other 07-03-2023 15:00-0400Body lfqafo45.84 kgBenjamin Ball Other [facility] [employer] Other 07-03-2023 15:00-0400Diastolic blood tibtxixo79 mm[Hg] John Ball Other [facility] [employer] Other 07-03-2023 15:00-0400Respiratory rate12 /minBenjamin Ball Other [employer] Other 07-03-2023 15:00-0400Systolic blood nhvqqwoj923 mm[Hg] John Ball Other [employer] Other 06-01-2023 09:00-0400Body ozndzs289.37 cmBenjamin Ball Other [employer] Other 06-01-2023 09:00-0400Body mass index (BMI) [Ratio] 27.33 kg/g2Pycsdenu Ball Other [employer] Other 06-01-2023 09:00-0400Body izgvwo07.66 kgBenjamin Ball Other [employer] Other 06-01-2023 09:00-0400Diastolic blood hahwxong03 mm[Hg] John Ball Other [employer] Other 06-01-2023 09:00-0400Respiratory rate12 /minBenjamin Ball Other [employer] Other 06-01-2023 09:00-0400Systolic blood finilhcq797 mm[Hg] John Ball Other [employer] Other 05-02-2023 15:00-0400Body fewevb719.37 cmBenjamin Ball Other [employer] Other 05-02-2023 15:00-0400Body mass index (BMI) [Ratio] 27.36 kg/o4Ejtjuvkq Ball Other [employer] Other 05-02-2023 15:00-0400Body .75 kgBenjamin Ball Other [employer] Other 05-02-2023 15:00-0400Diastolic blood gmujqbli15 mm[Hg] John Ball Other [employer] Other 05-02-2023 15:00-0400Respiratory rate12 /minBenjamin Ball Other [employer] Other 05-02-2023 15:00-0400Systolic blood ulwswznm939 mm[Hg] John Ball Other [employer] Other 01-16-2023 16:30-0500Body zfhtvo823.37 cmBenjamin Ball Other [employer] Other 01-16-2023 16:30-0500Body mass index (BMI) [Ratio] 26.28 kg/i8Dufbpuoa Ball Other [employer] Other 01-16-2023 16:30-0500Body .76 kgBenjamin Ball Other [employer] Other 01-16-2023 16:30-0500Diastolic blood pxzubrlc43 mm[Hg] John Ball Other [employer] Other 01-16-2023 16:30-0500Respiratory rate12 /minBenjamin Ball Other [employer] Other 01-16-2023 16:30-0500Systolic blood jmsubeqc840 mm[Hg] John Ball Other [employer] Other Encounters Encounter DateEncounter TypeCare ProviderFacilityStart: 05-13-2025 End: 13-24-0174puyqevkjybMBLMT A BROWNNot AvailableStart: 05-13-2025 End: 32-03-2915Ypvljlz encounter procedureJordan Yuan DO Work Phone: [facility]opaedicsComment on above:Hx of total shoulder replacement, right (Primary Dx)Start: 05-13-2025 End: 92-49-7263xswdubqygoLUMVA A BROWNNot AvailableStart: 05-13-2025 End: 62-34-8888xhjqpqdpzsBNJYX A BROWNNot AvailableStart: 04-29-2025 End: 79-23-2473Vnbxdjskv department patient visitBegloria Ashby DO Work Phone: [phone]-Hvcfnlker Room Work Phone: Start: 21-72-3752jmedkjddkcMpixfudo Ball DO Work Phone: [facility] Work Phone: Start: 58-46-9888Ymx-patient / Non-visitBenjamin Ball DO-[facility] Work Phone: Start: 41-57-5770Xyg-patient / Non-visitBenjamin Ball DO-[facility] Work Phone: Start: 03-06-2025 End: 44-61-3816uzvdcqjcvmTufxoeas Ball DO Work Phone: [facility] Work Phone: Start: 03-06-2025 End: 24-41-0330Bdqvlfw encounter procedureBentheresamin Ball DO-[facility] Work Phone: Start: 03-04-2025 End: 95-45-8388lpthivubemEsuqhix Vytautas Giedraitis MDFacility:[facility] Start: 12-10-2024 End: 09-60-7405oowmmvtvmwRFAMQG [facility] Start: 11-19-2024 End: 84-53-2460ivyysnctcpPdvemlz Vytautas Giedraitis MDFacility:[facility] Start: 11-06-2024 End: 69-46-1272sniyyrxuanVzmugumb Ball DO Work Phone: [facility] Work Phone: Start: 11-06-2024 End: 80-65-8190Kyklyjo encounter procedureBenwali Ball DO Work Phone: [facility] Work Phone: Start: 11-06-2024 End: 26-09-4280Cxckxfo encounter procedureBenjamin Ball DO Work Phone: [facility] Start: 11-06-2024 End: 69-59-6494crcidwqvixJsqajchl Ball DO Work Phone: [facility] Work Phone: Start: 10-29-2024 End: 61-15-5490ukudmcauklXowohwq Vytautas Giedraitis MDFacility:[facility] Start: 10-08-2024 End: 21-67-5822wzuvxnovmsPbbwnxy Vytautas Giedraitis MDFacility:[facility] Start: 10-04-2024 End: 42-34-5532Befsqir encounter procedureJordan Yuan DO Work Phone: [facility] NB ORTHOComment on above:Complete tear of left rotator cuff, unspecified whether traumatic (Primary Dx)Start: 10-04-2024 End: 62-28-3618cnmgmanysfKWFCW A BROWNNot AvailableStart: 10-04-2024 End: 31-74-6370Tjaoah flowsheetJordan Rogers Brown DO Work Phone: [facility] ORTHOStart: 10-04-2024 End: 90-32-5943Jktehn flowsheetJordan Rogers Brown DO Work Phone: [facility] ORTHOStart: 09-28-2024 End: 17-46-9816tklbdyynmpBnqjg A BrownFacility:FTMCStart: 09-25-2024 End: 91-46-9672jaxensexucXtuvzdzonChildren's Hospital of [facility] Work Phone: Start: 09-25-2024 End: 54-03-6305Gisjhre encounter procedureNovant Health [facility] Ne[facility] Hoang Work Phone: Start: 09-18-2024 End: 95-23-6432Fecpsay encounter procedureJordan Yuan DO Work Phone: [facility] NB ORTHOComment on above:S/P arthroscopy of left shoulder (Primary Dx)Start: 09-18-2024 End: 50-39-3384hbuatxkrfyDUTBC A BROWNNot AvailableStart: 51-16-0264Lam-patient / Non-visitNov[facility] Phys[facility] Work Phone: Start: 08-29-2024 End: 53-04-3689thejpedhxxCwgipmsaiChildren's Hospital of [facility] Work Phone: Start: 08-29-2024 End: 49-15-1591Juxuzztui for general adult medical examination without abnormal findingsAccess Hospital Daytontart: 08-29-2024 End: 03-44-9726Deuxaws encounter procedureNovant Health [facility] Physician [facility] Work Phone: Start: 71-20-1075Ojmsskg encounter statusAccess Hospital Daytontart: 07-17-2024 End: 90-19-8122Veobcel encounter procedureJordan Yuan DO Work Phone: noMS NB ORTHOComment on above:S/P arthroscopy of left shoulder (Primary Dx)Start: 07-17-2024 End: 42-02-9031ppkhgtztzeWKNTH A BROWNNot AvailableStart: 07-17-2024 End: 29-06-9007Qtbukl flowsheetJordan Yuan DO Work Phone: [facility] ORTHOStart: 07-17-2024 End: 02-00-5048Cbmwqj Randall Yuan DO Work Phone: NOMS ORTHOStart: 54-18-5630Fcx-patient / Non-visit [facility] Work Phone: Start: 06-14-2024 End: 52-77-9255Hglxmjj encounter procedureNovant Health [facility] Physician [facility] Work Phone: Start: 06-05-2024 End: 80-46-3280ezswvdgziiPGWPJ A BROWNNot AvailableStart: 06-05-2024 End: 79-79-8374Hhioagd encounter procedureJordan Yuan DO Work Phone: [facility] NB ORTHOComment on above:Status post shoulder surgery (Primary Dx)Start: 05-09-2024 End: 81-45-0604sguwbcrwevBrtfwwichChildren's Hospital of [facility] Work Phone: Start: 05-09-2024 End: 12-48-5293Druyzdp encounter procedureFirpareshs Physician Group-[facility] Work Phone: Start: 05-08-2024 End: 32-01-8406Wqbrlup encounter Radha Yuan DO Work Phone: noms NB ORTHOComment on above:Status post shoulder surgery (Primary Dx)Start: 04-27-2024 End: 82-78-7552Mghxiebrc to same day surgery canyonJordan Yuan [facility] Start: 04-27-2024 End: 65-62-1426kvbqkwrazwSU Jordan YuanFacility:FTMCStart: 04-17-2024 End: 78-19-6047qabllynrbeGahhnkezuChildren's Hospital of [facility] Work Phone: Start: 04-17-2024 End: 77-01-0261Wedxgdq encounter procedureFirpareshs [facility] Work Phone: Start: 04-10-2024 End: 95-72-4024oeutnegyvpCyvzvkfzfChildren's Hospital of [facility] Work Phone: Start: 04-10-2024 End: 58-56-3196Ssmiicf encounter procedureFirwestons [facility] Work Phone: Start: 03-30-2024 End: 86-08-6007bwjhlcpglxZelnzhrquChildren's Hospital of [place] Work Phone: start: 03-30-2024 End: 49-57-8356Ajqboax encounter procedureFirwestons [facility] Work Phone: start: 03-27-2024 End: 17-04-0769bqndyhbtomFqqsiunagChildren's Hospital of [place] Work Phone: start: 03-27-2024 End: 26-03-6490Hmsgohk encounter procedureNov[facility] Work Phone: Start: 02-42-2121Twxwwrd encounter statusAccess Hospital Daytontart: 03-19-2024 End: 01-61-2967avomgylpzpCuugb A BrownFacility:FTMCStart: 03-19-2024 End: 40-79-2319Fwncrwy encounter Radha [facility] Start: 02-29-2024 End: 81-44-5116kbkskvxdsvHyesmgchnOhioHealth [facility] Work Phone: Start: 02-29-2024 End: 50-59-6193Yvdhisk encounter procedureNov[facility] Work Phone: Start: 20-98-2739Loc-patient / Non-visitNov[facility] Health [facility] Physician Group-[facility] Work Phone: Start: 81-25-5191Cys-patient / Non-[facility]Nov[facility] Work Phone: Start: 12-28-2023 End: 24-92-8824amrvtgqyvvHhuvrdhjjOhioHealth O'[facility]len[facility] Work Phone: Start: 12-28-2023 End: 09-46-7135Yaucnkz encounter procedureNov[facility] GroupAC[facility] Work Phone: Start: 11-15-2023 End: 76-69-8485Wfpayzh encounter Radha Yuan DO Work Phone: noms NB ORTHOComment on above:Status post shoulder surgery (Primary Dx)Start: 09-28-2023 End: 26-37-7048iuyclqtfvuGxtkwdnxcOhioHealth O'Bleness Hospital Work Phone: Start: 09-28-2023 End: 28-61-9369Qaguuqw encounter procedureJamirvalley health Physician [facility] Work Phone: Start: 09-06-2023 End: 74-08-6572zmevuuoaucPxflg Sue AndersonFacility:FTMCStart: 09-06-2023 End: 95-85-8882Rweaydk encounter procedureJordan Yuan [facility] Start: 09-06-2023 End: 42-10-2087Aftpurozg Result EncounterJordan Yuan DO Work Phone: NOWN External Department UnsolicitedStart: 09-06-2023 End: 97-63-3434Gweqkeyqs Result EncounterJordan Yuan DO Work Phone: NOTH External Department UnsolicitedStart: 09-05-2023 Non-patient / Non-visitFirelands Phys[facility] GroupMad[facility] Work Phone: Start: 09-05-2023 End: 88-31-0053tdxeqjqkxmPgbfhgyu Symone Other [facility] Other Start: 00-85-4312Nveelkggl encountergloria [facility] Hospitaltart: 65-65-2896Ftq-patient / Non-visitFirelands Physician GroupMad[facility] Work Phone: Start: 08-80-3066Dkj-patient / Non-visitFirelands Physician GroupMad[facility] Work Phone: Start: 08-18-2023 End: 77-51-9271Wwemrcp encounter procedureJordan Yuan DO Work Phone: NOFX NB ORTHOComment on above:Right shoulder pain, unspecified chronicity (Primary Dx)Start: 86-00-7687Heqqz abstractShanaroman Rogers Anderson DO Work Phone: NOMS NB ORTHOStart: 08-17-2023 End: 87-22-0439alymstmtyoFvovqysh Symone Other [employer] [employer] Other Start: 29-40-3923Cfdgyzhkf for general adult medical examination without abnormal findingsBenwali NorrisG [facility] ClinicStart: 46-34-9522Cxdhfmsw preventive med est patient 40-64yrsBenwali BallFPG [facility] ClinicStart: 06-28-2023 End: 51-93-7133zqhvpmmsrbLbxkdvam Ball Other [employer] [employer] Other Start: 45-41-2322Qxiisl outpatient visit 15 minutes John JrG [facility] ClinicStart: 05-06-2023 End: 77-56-7855wzvafdxyakFhcpjzoq Ball Other [facility] Other Start: 96-13-0762Jvpzbnvwh encounterBenwali BallALFREDG [facility] ClinicStart: 04-26-2023 End: 29-34-3828wrjfilydouZbzlnxps Ball Other [facility] Other Start: 77-90-2217Nugmxlbzh encounterBenwali NorrisG [facility] ClinicStart: 04-06-2023 End: 89-04-2424Hlllaaaxv to same day surgery Domingo Yuan [facility] Start: 04-06-2023 End: 40-14-1716mglenavgtkQgdya A BrownFacility:FTMCStart: 03-31-2023 End: 93-17-6014xeprwhulhcMonkwnrh Ball Other [employer] Other Start: 31-98-8568Grcotuhno encounterBenwali NorrisG [facility] ClinicStart: 03-26-2023 End: 75-54-0497jyqyojkskiMpjfusue Ball Other [facility] Other Start: 93-19-6031Jlgrdsnox encounterBenjamin BallFPG [facility] ClinicStart: 03-24-2023 End: 60-72-4887xprmzmpehrNjxej Sue AndersonFacility:FTMCStart: 03-24-2023 End: 55-22-2225Bzonoxf encounter procedureJordan Yuan [facility] Start: 03-21-2023 End: 02-10-1178sqniufmnirWhgzrtsr Ball Other [facility] Other Start: 35-77-3802Kpqroskon encounterBenjamin BallFPG [facility] ClinicStart: 01-12-2023 End: 90-02-6291mggfxoaplsOoqqeiqo Ball Other [facility] Other Start: 05-89-5227Qolukkwlj encounterBenjamin BallFPG [facility] ClinicStart: 01-10-2023 End: 60-78-4697htyckzfihuIjwtjvcd Ball Other [facility] Other Start: 30-28-0863Vlrkoo outpatient visit 15 minutes John BallFPG [facility] ClinicStart: 12-14-2022 End: 69-28-0425fvspmgdbtwHgtvzmmk Ball Other [facility] Other Start: 61-91-9076Jjuzrftsk encounterBenjamin BallFPG [facility] ClinicStart: 12-10-2022 End: 49-47-6794igbjmgarmmTfgalfrj Ball Other [facility] Other Start: 61-13-6609Vqwsybyea encounterBenjamin BallFPG [facility] ClinicStart: 12-09-2022 End: 62-57-2474sewrmscpviKghazsyv Ball Other [facility] Other Start: 44-83-5752Tdvbzb outpatient visit 15 minutes John BallFPG [facility] ClinicStart: 11-09-2022 End: 67-62-1060kvidnplobaDzzhyadn Ball Other [facility] Other Start: 80-65-7740Mgdtpa outpatient visit 15 minutes John BallFPG [facility] ClinicStart: 02-18-3690duowmebjatYWHEGBXMGITA LAKSHMIPATHY .Facility:R2Vnfsq: 10-07-2022 End: 01-53-5906lnlodwdlchCXTFCLQTCQHD LAKSHMIPATHY .Facility:H5Eocsd: 09-22-2022 End: 14-81-9921ytkxidedbsZadpjzde Ball Other [facility] Other Start: 97-86-7003Osoiaixcu encounterBenjamin BallFPG [facility] ClinicStart: 09-16-2022 End: 53-45-8232jxxjfywkqvFC JOHN BALLFacility:J3Tgurw: 08-14-2022 End: 99-55-8327lkbwbspnhiSytklfwf Ball Other [facility] Other Start: 64-89-2573Ifmjsliqg encounterBenjamin BallFPG [facility] ClinicStart: 07-26-2022 End: 80-69-2615fekfdjmlkkBbdnyxmd Ball Other [facility] Other Start: 61-83-0131Ljcpon outpatient visit 15 minutes John BallFPG [facility] ClinicStart: 58-62-3105Fuewfz wellness visit John Ashby Other [facility] Other Start: 73-85-9834Qrpvzvv encounter procedureBenjamin Ball Other [facility] Other Start: 07-09-2022 End: 17-04-4004mkcvnwkeydJO JOHN ASHBYFacility:D1Udckl: 91-32-9327Uurgq health examinationBenjarosa Ashby Other [facility] [employer] Other Start: 66-67-1393Ndlpwxolidshe examination normal John Ashby Other [facility] [employer] Other Start: 2022 End: 88-45-6502ugrqojqbvhHA JOHN ASHBYFacility:S4Zzlyi: 06-01-2022 End: 87-71-8954qeqtzxgkawYE JOHN ASHBYFacility:D6Gzfqc: 78-72-2759Mtkekxpld for general adult medical examination without abnormal findingsDR JOHN ASHBY [facility] Andersontart: 05-20-2022 End: 29-66-3317qlglnhlwpyZQ JOHN ASHBYFacility:H1Lxjka: 05-20-2022 End: 11-96-0619Tgtqnrnbn for general adult medical examination without abnormal findingsDR JOHN ASHBYFacility:L7Uuoiv: 05-20-2022 End: 34-02-4186pjnhhupnfrAP JOHN ASHBYFacility:V2Kxhwl: 77-76-4322ijkfhavtwx KATE BOESFacility:K5Buxhm: 02-17-2022 End: 60-42-7265miffmbiiosLKHH OLIVAS .Facility:W1Vemfp: 02-16-2022 End: 88-59-0526yscatcomgnEP SO S AMOS .Facility:F8Hfbnz: 02-02-2022 End: 67-69-9462putqihczmaSM SO S AMOS .Facility:P7Nuxmq: 12-24-2021 ambulatoryMELISSA BOESFacility:I6Adtfr: 10-22-2021 End: 52-67-8188zzgslmsewqBIEA OLIVAS .Facility:Z7Hujgg: 03-12-2020 End: 77-21-7796Ppppeyh encounter procedureNABIL EBRAHEIMFacility:UTMCStart: 03-05-2020 End: 16-07-2303Wlwtilt encounter procedureNABIL EBRAHEIMFacility:UTMCStart: 10-20-2017 End: 18-39-1631KbpqunvddxCQSoutheast Missouri Hospitaltart: 10-13-2017 End: 97-64-7830EumsmslkawGMDoctors Hospital of [facility] Procedures DateProcedureProcedure DetailPerforming ClinicianStart: 04-98-5685Osbdi shoulder complete minimum 2 viewsJason A Brown DO Work Phone: Start: 72-14-7629Tgydf X-ray of right shoulderBenjamin Ball DO Work Phone: Start: 18-01-0851Oeytq X-ray of right shoulderBenjamin Ball DO Work Phone: Start: 85-48-1170Sjmxp X-ray of left shoulderBenjamin Ball DO Work Phone: Start: 82-45-1382Htdpvgizwyfokl aspir&/inj major jt/bursa w/usJason A Brown DO Work Phone: Start: 84-60-7877Mosvb shoulder complete minimum 2 viewsJason A Brown DO Work Phone: Start: 12-17-2648Dwtlgmkaqga of shoulderJason Brown Start: 68-65-8419Nfsvr shoulder complete minimum 2 viewsJason A Brown DO Work Phone: Start: 70-56-2594BF UPPER EXTREMITY W/O CONTRAST RIGHT Jordan A Brown DO Work Phone: Start: 89-29-8660MMRS LAB MISCELLANEOUS-LCJason A Brown DO Work Phone: Start: 66-44-3728Sixdt shoulder complete minimum 2 viewsJason A Brown DO Work Phone: Start: 73-71-1551Coynt shoulder replacementJason Celect Start: 29-64-0207NNUDHK KNEE AREA SURGERYCOLLEEN LANCZ Start: 88-45-2907FSM BONE 20 SQ CM/<MARYURI EBRAHEIMStart: 50-94-3569CBVFTKUMV OF FIBULA FRACTURENABIL EBRAHEIMStart: 95-86-7266PSRSY OXIMETRY, CONTINUOUSBO BASIM Start: 39-45-9652QJPCA OXIMETRY, CONTINUOUSBO YOOStart: 97-71-7530OHZKUKDOS PATIENTBO YOOStart: 37-03-1253VOAPGIC STATUS (DIRECT)BARRY YOOStart: 10-21-2017 PULSE OXIMETRY, CONTINUOUSBO YOOStart: 72-36-5819YSKEBVSH OXYGEN THERAPY PROTOCOLBO YOOStart: 44-96-9304DRCSG OXIMETRY, CONTINUOUSBO YOOStart: 10-21-2017 DIET CLEAR LIQUIDBO YOOStart: 15-76-7312YGUKQ OXIMETRY, CONTINUOUSBO YOOStart: 90-79-6743HBYHB WEIGHTSBO YOOStart: 81-37-4896WLQGJY AND OUTPUTBO YOOStart: 19-23-7953LLPEE OXIMETRY, CONTINUOUSBO YOOStart: 20-55-4272RIMDC OXIMETRY, CONTINUOUSBO YOOStart: 54-73-7945FHXUR OXIMETRY, CONTINUOUSBO YOOStart: 76-03-7546XYYDF INTERMITTENT PNEUMATIC COMPRESSION DEVICEBO YOOStart: 10-20-2017 ACTIVITY TOLERATEDBO YOOStart: 72-60-1540LOOHWTY DIET TOLERATED (NURSING COMMUNICATION)BARRY YOOStart: 24-49-5806LCJVWERL PATIENTBO YOOStart: 10-20-2017 ELEVATE HOBBO YOOStart: 30-80-1330BUXP CODEBO YOOStart: 20-04-4859CSOAZNQO OXYGEN THERAPY PROTOCOLBO YOOStart: 86-09-6999RWKJNY AND OUTPUTBO YOOStart: 06-63-9405NWAXJ/VASCULAR CHECKSBO YOOStart: 46-29-0837LTBQEQB COMMUNICATIONBO YOOStart: 21-39-3791TSCLM CERVICAL COLLARBO YOOStart: 80-23-1867FTTVA OXIMETRY, CONTINUOUSBO YOOStart: 59-16-8805QOWIMCBEB MONITORINGBO YOOStart: 10-20-2017 TOBACCO CESSATION EDUCATIONBO YOOStart: 25-43-5514CONLJ SIGNSBO YOOStart: 65-57-1339BLTECBR STATUS (FROM ED OR OR/PROCEDURAL)BARRY YOOStart: 10-20-2017 TELEMETRY MONITORINGBO YOOStart: 90-13-1220OYWUBL FOR SURGICAL PROCEDURESBO BASIM Start: 54-36-5181Kaujulfvvm pulse oximetryBO YOOStart: 85-38-6836HYDPKKEYW DEEP BREATHING AND COUGHINGBO YOOStart: 61-46-7172YWUWL YOOStart: 03-68-4365GPFLZ RT REFLEX TO CULTUREBO YOOStart: 88-08-7845VKWY AND SCREENBO YOOStart: 10-13-2017 APTTBO YOOStart: 21-09-3548MPTMA METABOLIC PANELBO YOOStart: 10-13-2017 PROTIME-INRBO YOOStart: 74-60-8868JMVH SCREENING CULTURE ONLYBO YOOStart: 52-84-8752IOR 12-LEADBO YOOStart: 14-75-4879Eckhlbf examination of patient John Ashby Other Amputation [...] shoulder replacement, right Expected: 05/13/2025 (Approximate), Expires: 05/13/2026NODE HealthcareComment on above:Expected: 05/13/2025 (Approximate), Expires: 05/13/2026Start: 05-13-2025 End: 94-42-8446DVZ W Auto Differential panel - BloodCBC auto differential Lab Routine Hx of total shoulder replacement, right Expected: 05/13/2025 (Appr oximate), Expires: 05/13/2026[facility] Work Phone: Comment on above:Expected: 05/13/2025 (Approximate), Expires: 05/13/2026Start: 05-13-2025 End: 77-31-0925Ycttwlbwfob sedimentation rateSedimentation rate, automated Lab Routine Hx of total shoulder replacement, right Expected: 05/13/2025 (Approximate), Expires: 05/13/2026[facility] HealthcareComment on above:Expected: 05/13/2025 (Approximate), Expires: 05/13/2026Start: 05-13-2025 End: 16-11-3861Mzdleifwegb-6Interleukin-6 Lab Routine Hx of total shoulder replacement, right Expected: 05/13/2025 (Approximate), Expires: 05/13/2026[facility] HealthcareComment on above:Expected: 05/13/2025 (Approximate), Expires: 05/13/2026Start: 05-13-2025 End: 89-99-8998Psyxxgt encounter bheighuei28/03/2025 10:30 AM EST Office Visit [facility] [address] [place] [phone] Jordan Yuan DO [address] [place] [address] [facility]icsStart: 03-14-2025 [facility]Met[facility] Work Phone: Start: 44-87-2178VQSYL-19 Vaccine ( season) COVID-19 Vaccine ( season)[facility] HealthcareStart: 37-38-3642Mbpixuqrm vaccinationNODE HealthcareStart: 30-46-9560Sndaz X-ray of left shoulderXR shoulder LT min 2V*[facility]: 59-05-1940CZ Shoulder - left ViewsAccess Hospital Daytontart: 10-04-2024 End: 69-88-6670Zwpuuua encounter xzrvnfwxu23/27/2025 2:45 PM EDT Office Visit [facility] [address] [place] [facility] [address] Brown, Jordan A, DO [address] [place] [address] [facility] NB ORTHOComment on above:ArrivedStart: 09-18-2024 End: 72-56-8375Ynrajkj encounter trdeqzdnn50/11/2025 10:00 AM EDT Office Visit [facility] [address] [place] [address] Jordan Yuan, DO [address] [place] [address] NOMS NB ORTHOStart: 07-17-2024 End: 46-84-9928Qrosaft encounter rpczmlarj34/07/2025 2:45 PM EST Office Visit [facility] [address] [place] [address] Jordan Yuan, DO [address] [place] [address] [facility] NB ORTHOComment on above:ArrivedStart: 2024 Screening for malignant neoplasm of colonNOMS HealthcareStart: 06-05-2024 End: 54-71-4996Hvgtzgq encounter qpqvdxwyk95/26/2024 9:15 AM EST Office Visit [facility] [address] [place] [address] Jordan Yuan, DO [address] [place] [address] NOMS NB ORTHOStart: 05-08-2024 End: 08-81-4106Ehanufo encounter lqovzzzdp43/29/2024 10:45 AM EDT Office Visit [facility] [address] [place] [address] Jordan Yuan, DO [address] [place] [address] NOMS NB ORTHOStart: 83-44-4934Msrtdvpss vaccinationInfluenza Vaccine (#1)[facility]S HealthcareStart: 10-04-2023 End: 70-17-9743Pquryti encounter atdogtfcz83/26/2024 3:45 PM EDT Office Visit [facility] [address] [place] [phone] Jordan Yuan, DO [address] [place] [address] NOMS ORTHOStart: 08-18-2023 End: 17-03-6386Cotbmpj encounter /08/2024 3:45 PM EST Office Visit [facility] [address] [place] [phone] Jordan Yuan, DO [address] [place] [address] NOMS ORTHOStart: 08-18-2023 End: 08-18-2024 reactive protein [Mass/volume] in Serum or PlasmaC-reactive protein Lab Routine Right shoulder pain, unspecified chronicity Expected: 08/18/2023 (Approximate), Expires: 08/18/2024[facility] HealthcareComment on above: Expected: 08/18/2023 (Approximate), Expires: 08/18/2024Start: 08-18-2023 End: 07-12-1939WYM W Auto Differential panel - BloodCBC auto differential Lab Routine Right shoulder pain, unspecified chronicity Expected: 08/18/2023 ( Approximate), Expires: 08/18/2024[facility] Work Phone: Comment on above:Expected: 08/18/2023 (Approximate), Expires: 08/18/2024Start: 08-18-2023 End: 57-24-2670Shdwfltesfd sedimentation rateSedimentation rate, automated Lab Routine Right shoulder pain, unspecified chronicity Expected: 08/18/2023 (Approximate), Expires: 08/18/2024[facility] HealthcareComment on above:Expected: 08/18/2023 (Approximate), Expires: 08/18/2024Start: 08-18-2023 End: 77-50-6989Nscrbqvmxha-6Interleukin-6 Lab Routine Right shoulder pain, unspecified chronicity Expected: 08/18/2023 (Approximate), Expires: 08/18/2024 NOMS HealthcareComment on above:Expected: 08/18/2023 (Approximate), Expires: 08/18/2024Start: 18-95-3126Mhzlmaahs for malignant neoplasm of breastMammogram [facility] HealthcareStart: 99-91-9326Gwlzijape for malignant neoplasm of cervixNOMS HealthcareStart: 46-84-7778Mlrwgjrcu for malignant neoplasm of cervixPap Smear [facility] HealthcareStart: 66-75-1899Fvlgmgciw for malignant neoplasm of colonNOMS HealthcareComprehensive metabolic 1999 panel - Serum or [facility] HospitalPatient EducationShoulder [facility] Work Phone: Patient referralMet[facility]health [facility] Work Phone: Renal function 1999 panel - Serum or [facility] HospitalUS Heart TransthoracicDayton Va Medical CenterUS Kidney - bilateralDayton Va Medical CenterXR Chest 2 ViewsLittle Company of [facility] Immunizations Immunization DateImmunizationNotesCare CnhevhjnXzfeguas60-92-0842isskceifi virus vaccine, unspecified formulationJordan Yuan DO Work Phone: [facility] HospitalEzrtxsphgl33-61-2740esgswmr and diphtheria toxoids, adsorbed, preservative free, for adult use (5 Lf of tetanus toxoid and 2 Lf of diphtheria toxoid)John Ashby Other [facility] Payers DatePayer CategoryPayerPolicy [id number] Health [id number] (Managed Care) [id number] [id number] 09-94-5258Ctkwdye Health Aqvbjvqpe79-17-1868Nxjr Cross Blue Shield 1.2.840.003156.1.13.693.2.7.9.800388.018483.06809-71-2080Aofdafq 1.2.840.744540.1.13.693.2.7.3.598025.74780-84-8405Dmjv [place]ter Blue Shield [id number] 2.16.840.5.210665.479019 2020Medicare 1.2.840.353578.1.13.693.2.7.3.100[id number] [id number] 2.16.840.1.093870.3.579.[id number] 2.16.840.1.759083.3.579.2.68461-63-3309Ihciuaa6325531 2.16.840.1.200770.3.579.2.02425-23-8819Cdnlmpk5313243 2.16.840.1.704563.3.579.2.08854-22-8626Gvvqgij3847692 2.16.840.1.102874.3.579.2.73107-53-7419Reqfvaz6395678 2.16.840.1.677050.3.579.2.73847-90-3197Ukuqlky4549924 2.16.840.1.231628.3.579.2.09987-11-5054Izlzgvt5866807 2.16.840.1.870731.3.579.2.61207-95-9590Rybrcll1016799 2.16.840.1.060223.3.579.2.12582-27-2530Ytwvzin4841360 2.16.840.1.991682.3.579.2.65168-04-6905Fohzphi0293181 2.16.840.1.461762.3.579.2.84281-86-9655Uvvqruu4520197 2.16.840.1.976791.3.579.2.22501-13-3801Utpdsxa6316759 2.16.840.1.554137.3.579.2.60355-22-6241Zkiyogz5210633 2.16.840.1.655296.3.579.2.51178-29-8076Jeonkwe4616780 2.16.840.1.247181.3.579.2.82425-28-2419Anlvpru9684507 2.16.840.1.410147.3.579.2.71433-61-6725Zolcszx4588904 2.16.840.1.038164.3.579.2.51631-22-4968Rkptzwg2868164 2.16.840.1.547044.3.579.2.49415-42-0832Iljlosg9872571 2.16.840.1.439236.3.579.2.90165-22-5836Qrxlvee79340591 2.16.840.1.341227.3.579.2.96126-62-3305Yztwavu64108548 2.16.840.1.790703.3.579.2.35386-75-2756Ytypxgu59243573 2.16.840.1.150799.3.579.2.03775-71-9409Baemnwg55143493 2.16.840.1.751035.3.579.2.93493-15-6749Hjqmomn09398620 2.16.840.1.271654.3.579.2.08225-34-5400Fdqgukt62344007 2.16.840.1.942351.3.579.2.10741-67-2866Jcilrsd44773278 2.16.840.1.567678.3.579.2.52624-20-0553Zmyttxy016042339 2.16.840.1.886886.3.579.2.12652-89-8361Siluzxw480241069 2.16.840.1.641858.3.579.2.07088-05-5478Fwmbwia110600364 2.16.840.1.706430.3.579.2.85106-23-8730Blxhlak415881561 2.16.840.1.941999.3.579.2.15583-14-3639Bwyekqr51123927 2.16.840.1.247409.3.579.2.952746-90-0387Rirfskv25110770 2.16.840.1.854367.3.579.2.015626-79-6868Smuqwbj48868275 2.16.840.1.067492.3.579.2.880742-04-9774Xsfhltc5618268 2.16.840.1.462745.3.579.2.211615-11-1617Jkfsodd7916931 2.16.840.1.815869.3.579.2.301051-60-2356Mrdldsh7261104 2.16.840.1.992032.3.579.2.937645-44-2467Qigzgcm1764710 2.16.840.1.458440.3.579.2.1259 [id number] 1960Self-pay [id number]-5196HvupvuhTQVLF9175054Wkpsygf63430434 .16.840.1.694622.3.579.2.907Eyctwts08747029 .16.840.1.722048.3.579.2.531 Social History DateTypeDetailFacilityUnknown if ever smokedNoharry s. truman [facility]' hospital [employer] Other Start: 07-21-2023 End: 86-75-3925Bmq [facility] CenterTobacco smoking statusNo Smoking Status [facility] Hospitaltart: 05-24-2023 End: 05-47-0168Oabnlxu smoking status NHISEx-smokerNOMS HealthcareStart: 04-10-1981 End: 63-36-4781Fdsfwjh of tobacco useCurrent smokerNOMS HealthcareStart: 04-10-1981 End: 55-28-2721Hwsdydi of tobacco useCigarette SmokerNOMS HealthcareStart: 05-24-2023 End: 67-73-3021Vkggihi use and exposureSmokeless tobacco non-userNOMS Healthcare Start: 07-21-2023 End: 85-53-7226Rdxnyao intakeCurrent drinker of alcohol (finding)[facility] Start: 07-21-2023 End: 12-74-6841Ilrntxu of Social functionNOMS HealthcareHow often to you have a drink containing alcohol?Monthly or lessNOMS HealthcareHow many standard drinks containing alcohol do you have on a typical day?1 or 2NOMS HealthcareHow often do you have 6 or more drinks on 1 occasion?WeeklyNOMS HealthcareStart: 33-74-6350Cvsjcnu Commentcaffiene 1-2 cups dailyNOMS HealthcareStart: 1960 Sex Assigned At BirthNot on fileCEDAR CITY HOSPITAL HealthcareStart: 42-07-8151Kqc Assigned At [facility] Townshiptart: 05-87-6793Yjbngty Number of DrinksNot on fileCEDAR CITY HOSPITAL HealthcareStart: 08-29-2024 End: 19-08-5226BirHxxuxw (finding)[facility] Medical Equipment Procedure CodeEquipment CodeEquipment Original TextEquipment IdentifierDates SHOULDER TOTAL ARTHROPLASTY Jordan Yuan DO 04/06/23 Unknown Shoulder RFDA Start: 21-26-4602TQTEQKWT TOTAL ARTHROPLASTY Jordan Yuan DO 04/06/23 Unknown Shoulder RFDAStart: 94-75-9519CAWEYCIT TOTAL ARTHROPLASTY Jordan Yuan DO 04/06/23 Unknown Shoulder RFDAStart: 37-58-0399DKAMUGSL TOTAL ARTHROPLASTY Jordan Yuan DO 04/06/23 Unknown Shoulder RFDAStart: 08-46-6542TZHBAOIH TOTAL ARTHROPLASTY Jordan Yuan DO 04/06/23 Unknown Shoulder RFDAStart: 04-06-2023 SHOULDER TOTAL ARTHROPLASTY Jordan Yuan DO 04/06/23 Unknown Shoulder RFDA Start: 20-83-2741HQFEXAKE TOTAL ARTHROPLASTY Jordan Yuan DO 04/06/23 Unknown Shoulder RFDAStart: 89-41-6757EYKMUIPO TOTAL ARTHROPLASTY Jordan Yuan DO 04/06/23 Unknown Shoulder RFDAStart: 00-54-3515YFBZMFXP TOTAL ARTHROPLASTY Jordan Yuan DO 04/06/23 Unknown Shoulder RFDAStart: 80-93-6723ZZVPWIVY TOTAL ARTHROPLASTY Jordan Yuan DO 04/06/23 Unknown Shoulder RFDAStart: 04-06-2023 SHOULDER TOTAL ARTHROPLASTY Jordan Yuan DO 04/06/23 Unknown Shoulder RFDA Start: 37-22-5108FPHGWQCJ TOTAL ARTHROPLASTY Jordan Yuan DO 04/06/23 Unknown Shoulder RFDAStart: 25-60-6524RWNGDPQZ TOTAL ARTHROPLASTY Jordan Yuan DO 04/06/23 Unknown Shoulder RFDAStart: 85-97-5002WQZFICIS TOTAL ARTHROPLASTY Jordan Yuan DO 04/06/23 Unknown Shoulder RFDAStart: 36-23-7421ZDWVNMQZ TOTAL ARTHROPLASTY Jordan Yuan DO 04/06/23 Unknown Shoulder RFDAStart: 04-06-2023 SHOULDER TOTAL ARTHROPLASTY Jordan Yuan DO 04/06/23 Unknown Shoulder RFDA Start: 36-24-2190PUZNKNMF TOTAL ARTHROPLASTY Jordan Yuan DO 04/06/23 Unknown Shoulder RFDAStart: 02-87-1977ISXPNNHS TOTAL ARTHROPLASTY Jordan Yuan DO 04/06/23 Unknown Shoulder RFDAStart: 07-56-8983DJVMMZHQ TOTAL ARTHROPLASTY Jordan Yuan DO 04/06/23 Unknown Shoulder RFDAStart: 94-35-9067HITPAHAL TOTAL ARTHROPLASTY Jordan Yuan DO 04/06/23 Unknown Shoulder RFDAStart: 04-06-2023 SHOULDER TOTAL ARTHROPLASTY Jordan Yuan DO 04/06/23 Unknown Shoulder RFDA Start: 75-43-5074YCBOQYHY TOTAL ARTHROPLASTY Jordan Yuan DO 04/06/23 Unknown Shoulder RFDAStart: 54-38-9768KKWXIWUQ TOTAL ARTHROPLASTY Jordan Yuan DO 04/06/23 Unknown Shoulder RFDAStart: 57-69-8082FDSTQWLA TOTAL ARTHROPLASTY Jordan Yuan DO 04/06/23 Unknown Shoulder RFDAStart: 85-92-0091UOLEHUKB TOTAL ARTHROPLASTY Jordan Yuan DO 04/06/23 Unknown Shoulder RFDAStart: 04-06-2023 SHOULDER TOTAL ARTHROPLASTY Jordan Yuan DO 04/06/23 Unknown Shoulder RFDA Start: 66-58-8363RYHACQJC TOTAL ARTHROPLASTY Jordan Yuan DO 04/06/23 Unknown Shoulder RFDAStart: 57-29-3672QKELAIXM TOTAL ARTHROPLASTY Jordan Yuan DO 04/06/23 Unknown Shoulder RFDAStart: 10-29-0213TVMFRDUQ TOTAL ARTHROPLASTY Jordan Yuan DO 04/06/23 Unknown Shoulder RFDAStart: 75-87-1170KBXJOGXG TOTAL ARTHROPLASTY Jordan Yuan DO 04/06/23 Unknown Shoulder RFDAStart: 04-06-2023 SHOULDER TOTAL ARTHROPLASTY Jordan Yuan DO 04/06/23 Unknown Shoulder RFDA Start: 59-80-5376EXARREOE TOTAL ARTHROPLASTY Jordan Yuan DO 04/06/23 Unknown Shoulder RFDAStart: 39-49-9066MCSICADU TOTAL ARTHROPLASTY Jordan Yuan DO 04/06/23 Unknown Shoulder RFDAStart: 29-60-7033BFHKHDWL TOTAL ARTHROPLASTY Jordan Yuan DO 04/06/23 Unknown Shoulder RFDAStart: 26-65-6489AOKVVTYZ TOTAL ARTHROPLASTY Jordan Yuan DO 04/06/23 Unknown Shoulder RFDAStart: 04-06-2023 SHOULDER TOTAL ARTHROPLASTY Jordan Yuan DO 04/06/23 Unknown Shoulder RFDA Start: 59-51-6726FPOZCZVF ARTHROSCOPY W/ POSSIBLE REPAIR Jordan Yuan DO 04/27/24 Non Biological Shoulder L{[id number] [facility] Start: 04-27-2024 Functional Status Fukm[id number] StatusMarietta [facility]09-14-2023Functional StatusC[facility] 05-29-2018 to 05-13-2025 Note Date & [id number] History of Present illness Narrative* Jordan Yuan DO - 05/13/2025 10:30 AM EST Images from the original note were not included. @Powa TechnologiesTE@ Ikaria Levy Zaidi is a 64 y.o. female [...] tablet citalopram (CeleXA) 10 MG tablet HYDROcodone-acetaminophen (Niantic) 5-325 MG tablet leflunomide (Arava) 10 MG [...] note was created using voice recognition through ONTRAPORT artificial Pint Please. [1] Allergies Allergen Reactions Cephalexin GI intolerance [...] daily Drug use: Never documented in this encounterSaint John's Saint Francis HospitalJusydlapym44-56-2791 Chief complaint+Reason for visit Narrative* Chief Complaint Admit Date Itchy w/ no Rash March 06, 2025 9: 17am Referral Order March 14, 2025 9:00pm Reason for Visit Admit Date Chronic kidney disease March 06, 2025 9:17am Heart failure with improved ejection fra ction (HFimpEF) March 06, 2025 9:17am Nonischemic cardiomyopathy March 06, 2025 9:17am Pruritus March 06, 2025 9: 17am [facility] Work Phone: 1(533) 357-815708-27-2025 Chief complaint+Reason for visit Narrative * Chief [...] 9:17am Pruritus March 06, 2025 9: 17am [facility] Work Phone: 1(131) 204-356308-27-2025 Evaluation note* Diagnosis Onset Date Resolution Status Admit Date Chronic kidney disease acuteAugust 2024 9:17amHeart failure with improved ejection fraction (HFimpEF)acuteAugust 2024 9:17amNonischemic cardiomyopathyacuteAugust 2024 9:17amPruritusacuteAugust 2024 9:17am [facility] Work Phone: 1(573) 574-973606-02-2025 NoteUT Cardiology - [facility] Subjective Radha Zaidi is a [...] In the past she was admitted to [facility] with pneumonia and empyema, underwent chest [...] mouth if needed., Disp: , Rfl: HYDROcodone-acetaminophen (Niantic) 5-325 mg tablet, TAKE 1 TABLET BY [...] [address] feliz (more content not included)...[facility]03-27-2025 History of Present illness Narrative* Jordan [...] tablet citalopram (CeleXA) 10 MG tablet HYDROcodone-acetaminophen (Niantic) 5-325 MG tablet leflunomide (Arava) 10 MG [...] Results Imaging MRI of the left shoulder [facility] 09/28/2024 report and [...] about this procedure. We will utilize the GENBANDnier shoulder arthroplasty platform and obtain a CT [...] note was created using voice recognition through ONTRAPORT artificial Pint Please. documented in this encounterSaint John's Saint Francis HospitalJrmzzrileg79-59-7882 History of Present illness Narrative* Jordan Yuan DO - 09/18/2024 10:00 AM EDT Images from the original note were not included. @LORAINE@ Ikaria Levy Zaidi is a 64 y.o. female [...] tablet citalopram (CeleXA) 10 MG tablet HYDROcodone-acetaminophen (Niantic) 5-325 MG tablet leflunomide (Arava) 10 MG [...] note was created using voice recognition through ONTRAPORT artificial intelligence. documented in this encounterSaint John's Saint Francis HospitalMhapgthfkd25-87-9049 Evaluation note* Diagnosis Onset Date Resolution Status Admit Date Chronic kidney disease acuteFebruary 2024 3:15pmEssential hypertensionacuteFebruary 2024 3:15pmHeart failure with improved ejection fraction (HFimpEF)acuteFebruary 2024 3:15pmNonischemic cardiomyopathyacuteFebruary 2024 3:15pmPernicious anemiaacuteFebruary 2024 3:15pmPSVT (paroxysmal supraventricular tachycardia)acuteFebruary 2024 3:15pmScreening mammogram for breast cancer acuteFebruary 2024 3:15pmWellness examinationacuteFebruary 2024 3:15pmEncounter for screening for malignant neoplasm of colonnoneactiveFebruary 2024 3:15pmAnemia of renal diseaseacuteNew [facility] Centerch 2024 10:33amChronic kidney disease, stage 3bacuteMar 2024 10:33amHypertensive nephropathy acute[facility] 10:33amRheumatoid arthritisacuteNew [facility] Medical Centerch 2024 10:33am [facility] Work Phone: 1(785) 790-387802-19-2025 Evaluation note* Diagnosis Onset Date Resolution Status Admit Date Chronic kidney disease acuteFebruary 2024 3:15pmEssential hypertensionacuteFebruary 2024 3:15pmHeart failure with improved ejection fraction (HFimpEF)acuteFebruary 2024 3:15pmNonischemic cardiomyopathyacuteFebruary 2024 3:15pmPernicious anemiaacuteFebruary 2024 3:15pmPSVT (paroxysmal supraventricular tachycardia)acuteFebruary 2024 3:15pmScreening mammogram for breast cancer acuteFebruary 2024 3:15pmWellness examinationacuteFebruary 2024 3:15pmEncounter for screening for malignant neoplasm of colonnoneactiveFebruary 2024 3:15pmAnemia of renal diseaseacuteSelect [facility] 2024 10:33amChronic kidney disease, stage 3bacuteSelect [facility] 2024 10:33amHypertensive nephropathy acuteSelect [facility] 2024 10:33amRheumatoid arthritisacuteSelect [facility] 2024 10:33am Left rotator cuff tearacuteApril 2024 1:35pmPrimary osteoarthritis, left shoulderacuteApril 2024 1:35pm [facility] Work Phone: 1([phone]) 112-924801-07-2025 History of Present illness Narrative* Jordan Yuan, - 07/17/2024 2:45 PM EST Images from the original note were not included. @ENCDATE@ Ikaria Levy Dyan is a 64 y.o. female [...] tablet citalopram (CeleXA) 10 MG tablet HYDROcodone-acetaminophen (Niantic) 5-325 MG tablet leflunomide (Arava) 10 MG [...] note was created using voice recognition through Ph.Creative. documented in this encounterSaint John's Saint Francis HospitalIdylwuxkfi80-51-8875 Evaluation note* Diagnosis Onset Date Resolution Status Admit Date Pernicious anemia acuteDecember 2023 3:25pmChronic kidney diseaseacuteFebruary 2024 3:15pmElevated transaminase levelacuteFebruary 2024 3:15pmEssential hypertensionacuteFebruary 2024 3:15pmHeart failure with improved ejection fraction (HFimpEF)acuteFebruary 2024 3:15pmNonischemic cardiomyopathyacute February 2024 3:15pmPernicious anemiaacuteFebruary 2024 3:15pmPSVT (paroxysmal supraventricular tachycardia)acuteFebruary 2024 3:15pm Screening mammogram for breast canceracuteFebruary 2024 3:15pmWellness examinationacuteFebruary 2024 3:15pm [facility] Work Phone: 1(120) 942-887511-26-2024 History of Present illness Narrative* Jordan Yuan [...] tablet citalopram (CeleXA) 10 MG tablet HYDROcodone-acetaminophen (Niantic) 5-325 MG tablet TAKE 1 TABLET BY [...] with debridement Patient will start PT at [place]. [place] protocol for small to medium cuff tears will be utilized. Follow up in 6 weeks. Continue to ice the shoulder and allow sufficient time for rest during the week. There are no diagnoses linked to this encounter. Jordan uYan D.O. Attestation This note was created using voice recognition through ONTRAPORT artificial Pint Please. * ROSEMARY Hernandez - 06/05/2024 9:15 AM ESTAssociated Order(s): L Inj/Asp: L glenohumeral Post-Procedure Diagnose(s): Status post shoulder surgery L Inj/Asp: L glenohumeral on 06/05/2024 2:26 PM Indications: pain Details: 25 G needle, ultrasound-guided Medications: 2 mL betamethasone acetate-betamethasone sodium phosphate 6 (3-3) MG/ML Consent was given by the patient. documented in this encounterSaint John's Saint Francis HospitalRhbpcocxdm90-94-4164 History of Present illness Narrative* Jordan Yuan DO - 05/08/2024 10:45 AM EDT Images from the original note were not included. @CARIDADLUIS MANUELISATU@ Ikaria Levy Zaidi is a 63 y.o. female [...] tablet citalopram (CeleXA) 10 MG tablet HYDROcodone-acetaminophen (Niantic) 5-325 MG tablet TAKE 1 TABLET BY MOUTH 3 TIMES A DAY NEEDED FOR PAIN*MUS LAST 30 DAYS HYDROcodone-acetaminophen (Niantic) 5-325 MG tablet 1-2 tablets, Oral, Every [...] for her medication will be sent to [facility] in [place]. Follow-up Return in 4 weeks for follow up. PT will be initiated at that time. Diagnoses and all orders for this visit: Status post shoulder surgery - XR shoulder 2+ views left - HYDROcodone-acetaminophen (Niantic) 5-325 MG tablet; Take 1-2 tablets by mouth every 4 (four) hoursif needed (pain) for up to 7 days Jordan Yuan D.O. Attestation This note was created using voice recognition through Ph.Creat[employer]. 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 Family History: Primary malignant neoplasm of prostate Father Acute myocardial infarction Mother Procedure history: Total shoulder replacement (00798746) on 04/06/2023 at 62 Years. Cervical laminectomy (2156069871). Amputation of finger (856933422). Removal of lung, Partial (07606). Open reduction and internal fixation of fracture Leg (639818555). Foot surgery (8543135798). Lumbar discectomy (989602779). Social History Social & Psychosocial Habits Alcohol [...] Signs (last 24 hrs) Last Charted Temp Wrnnhrgt51.5 DegC (APR 27:22) Heart Rate Atfmkbmod40 bpm (APR 27:23) GJB614 mmHg (APR 27:23) DBP70 mmHg (APR 27:23) [...] Auto 55.1 % Lymph Auto 20.4 % [place] Auto 19.5 % HI Eos Auto 3.7 % Basophil Auto 1.3 % Neutro Absolute 2.4 E9/L Lymph Absolute 0.9 E9/L LOW [place] Absolute 0.8 E9/L Eos Absolute 0.2 E9/L Basophil Absolute 0.1 E9/L . Plan [place] [employer] of Anesthesiologists (ASA) physical status classification: Class III. Anesthetic Preoperative Plan: Anesthesia General. Regional Interscalene block.Addendum by Wm Bajwa MD on April 27, 2024 8:55 [facility] 10-18-2024 Hospital Discharge instructions Patient Education 04/27/2024 10:08:37 Shoulder Cryocuff Patient Instructions - FT (CUSTOM) 04/27/2024 10:08:34 Post Op Patient Instructions - FT (CUSTOM) 04/27/2024 07:48:25 Iris Yuan - After Your Shoulder Arthroscopy (Custom) [place], [place] [facility] AFTER YOUR SHOULDER ARTHROSCOPY [...] your appointment. Jordan Yuan, DO [facility] [address] [place] [id number] Reviewed: Follow Up Care 02/23/2024 15:25:37 With:Jordan Yuan Address: [address] [place] [address]- Business (1) When:05/08/2024 10:45:00 Comments:Call for any problems.Keep scheduled appointmentAppointment has already been scheduled [facility] 10-18-2024 NoteProgress Note-Physician Patient: RADHA ZAIDI Age: 63 years Sex: Female : 1960 Associated Diagnoses: None Author: Wm Bajwa MD Postoperative Information Postoperative disposition: Postoperative disposition: To PACU. Optimetrix number: Optimetrix number [id number]. Anesthetic utilized: General. Regional: Interscalene Block. Health [...] Discharge when meets criteria ( To home ).[facility] SystemComment on above:Result Comment: Electronically Signed By: Wm Bajwa MD\.br\Date and Time Signed: 04/27/24 10:30 EDT 04-27-2024 NotePatient Education - Text [place], [place] [facility] AFTER YOUR SHOULDER ARTHROSCOPY [...] your appointment. 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 Family History: Primary malignant neoplasm of prostate Father Acute myocardial infarction Mother Procedure history: Total shoulder replacement (76342404) on 04/06/2023 at 62 Years. Cervical laminectomy (3113985507). Amputation of finger (678218938). Removal of lung, Partial (77760). Open reduction and internal fixation of fracture Leg (825153301). Foot surgery (1583517703). Lumbar discectomy (478530993). Social History Social & Psychosocial H (more content not included)...[facility] SystemComment on above:Result Comment: Electronically Signed By: Garett CHAUHAN, Wm Mistry\.br\Date and Time Signed: 04/27/24 08:55 [id number] History of Present illness Narrative* Jordan Yuan, - 11/15/2023 3:45 PM EDT Images from the original note were not included. @ENCDATE@ Ikaria Levy Zaidi is a 63 y.o. female [...] tablet citalopram (CeleXA) 10 MG tablet HYDROcodone-acetaminophen (Niantic) 5-325 MG tablet TAKE 1 TABLET BY [...] Jordan Yuan D.O. 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 She points to the anterior aspect of the shoulder as the locationof her discomfort. SUBJECTIVE: MEDICATIONS: Current Outpatient Medications Medication Instructions aspirin 81 MG EC tablet 1 tablet, Oral, Daily buPROPion XL (Wellbutrin XL) 300 MG 24 hr tablet citalopram (CeleXA) 10 MG tablet HYDROcodone-acetaminophen (Niantic) 5-325 MG tablet TAKE 1 TABLET BY [...] care. Jordan Yuan D.O. documented in this encounterSaint John's Saint Francis HospitalLzhfnjjurj14-27-9492 Evaluation note* Encounter Date Diagnosis Assessment Notes [...] Z87.39)Symptoms tolerable, continue medical treatment f/u Rheumatology 24/7 Card Other 12-19-2023 Evaluation note* Encounter Date Diagnosis [...] prolonged illness. Jun,Immunosuppressed status (ICD-10 - D84.9) 24/7 Card Other 09-28-2023 Evaluation + Plan noteExtracted from:Title: [...] from:Title:Fredi Basic PREAuthor:Yanick Rai DODate: 04/06/23 Plan [place] [employer] Anesthesiologists (ASA) physical status classification: Class II. Anesthetic Preoperative Plan: Anesthesia General. Regional Interscalene block.[facility]09-28-2023 Hospital Discharge instructions Patient Education 04/07/2023 07:41:33 Iris Yuan - Shoulder Replacement (Custom) [place], [place] [facility] DISCHARGE INSTRUCTIONS: SHOULDER REPLACEMENT [...] persistent vomiting. Jordan Yuan, DO [facility] [address] [place] [address] Reviewed: Follow Up Care 03/09/2023 13:56:15 With:Jordan Yuan Address: [address] [place] [address]- Business (1) When:04/19/2023 14:15:00 With:JOHN SYMONE Address: [facility] [place] [address]- Business (1) When: Unknown [facility]09-28-2023 NotePatient: RADHA ZAIDI Age: 62 years [...] mg, 1 tab(s), Oral, Daily, 0 Refill(s)[facility] SystemComment on above:Result Comment: Electronically Signed By: Jordan Yuan DO\.br\Date and Time Signed: 04/07/23 07:42 [id number]:127 [facility]09-16-2023 Evaluation note* Encounter Date Diagnosis Assessment Notes Treatment Notes Treatment Clinical Notes Mar, Major depressive dis order, single episode, 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 [employer] Other 07-03-2023 Evaluation note* Encounter Date Diagnosis [...] nervousness and lightheadedness are common w/d symptoms 24/7 Card Other 06-02-2023 Evaluation note* Encounter Date Diagnosis Assessment Notes Treatment Notes Treatment Clinical Notes Dec, Overweight (ICD-10 - E66.3) 24/7 Card Other 06-01-2023 Evaluation note* Encounter Date Diagnosis [...] will be very costly. Suggested referral to Lithographic Photographer Apprentice 24/7 Card Other 05-02-2023 Evaluation note* Encounter Date Diagnosis [...] normal BMI. Monitor BP while taking Adipex 24/7 Card Other 03-30-2023 NoteCONSULTATION PROCEDURE DATE: 10/07/2022 PROCEDURE: [...] at least 80% reduction of pain symptoms.[facility] HospitalFuwbtbdi64-16-4353 NoteCONSULTATION CONSULTATION DATE: 10/07/2022 ADDENDUM: On examination of the right shoulder, the patient did have a positive right sided full can test, a positive Neida's test, Apley's test and cross body test. All four positive on examination date 10/07/2022.[facility] HospitalFelpqdhx24-91-1113 NoteCONSULTATION CONSULTATION DATE: 10/07/2022 TO: John Ashby [...] activity modification, use of Zanaflex, Lyrica and Niantic. RECOMMENDATIONS: I recommend proceeding with a right [...] right shoulder without contrast and physical therapy.[facility] HospitalQapktiju15-03-7674 Evaluation note* Encounter Date Diagnosis Assessment Notes Treatment Notes Treatment Clinical Notes Aug, Anemia (ICD-10 - D64.9) 24/7 Card Other 01-16-2023 Evaluation note* Encounter Date Diagnosis [...] F41.1)Healthy diet, exercise w/o change in treatment 24/7 Card Other 12-30-2022 NoteCONSULTATION PROCEDURE DATE: 07/09/2022 PREOPERATIVE [...] will be followed up in the office.[facility] HospitalIohmmtcf04-34-5662 NoteCONSULTATION CONSULTATION DATE: 07/09/2022 HISTORY OF PRESENT [...] possible increase in dose. She also takes Niantic 5/325 t.i.d. and Zanaflex 4 mg three [...] three months' time, unless otherwise indicated. [facility] HospitalJbrcwucr74-45-1640 NoteCONSULTATION CONSULTATION DATE: 05/20/2022 HISTORY OF PRESENT [...] medications include Celexa, Lyrica 50 mg b.i.d., Niantic 5/325 t.i.d. and Zanaflex. Patient is having [...] level of C3-4. We will refill her Niantic at 5/325 t.i.d. Supportive home measures were discussed such as heat and a menthol heat rub, as well as vitamin compliance. The patient agrees to move forward with the plan, will be followed up in the clinic thereafter.[facility] HospitalGobcgqfv21-30-0543 NoteCONSULTATION PROCEDURE DATE: 02/17/2022 PRE AND POSTOPERATIVE [...] will be followed up in the clinic.[facility] HospitalDkuzfxxd93-89-1715 NotePROCEDURE: XR SHOULDER RT 2V or > COMPARISON: None. HISTORY: Pain of right shoulder joint FINDINGS: BONES:No acute fracture or dislocation. Minimal degenerative changes. Cervical fusion hardware SOFT TISSUES:Negative. No visible soft tissue swelling. EFFUSION:None visible. OTHER: Negative. IMPRESSION: No acute abnormality Electronically authenticated by: VANDANA COLLINS Date: 2022-02-16 19:11[facility] HospitalRfevvffi15-89-5994 NoteCONSULTATION CONSULTATION DATE: 02/02/2022 CHIEF COMPLAINT: Right [...] aggravates the pain. The patient currently takes Niantic 5/325 t.i.d., wellbutrin 150 mg, Lyrica 50 [...] point tenderness along the right bicipital tendon. Actuarial Clerk strength is maintained. IMPRESSION: Current working diagnosis [...] like to proceed. CC: John Ashby D.O.[facility] HospitalEydasgss58-67-2178 NoteCONSULTATION CONSULTATION DATE: 10/22/2021 HISTORY OF PRESENT [...] her pain are pushing, pulling, standing walking, swedger hours and activity. Cold weather and bending bother her as well. Medications include Lyrica 75 mg t.i.d., which she has not been taking for the past two months; Celexa, Niantic 5/325 t.i.d., Zanaflex and RINVOQ. She feels that her pain is managed well with her Niantic, but is concerned about the neuropathic pain [...] in need of a refill for her Niantic today, which we will give 5/325 t.i.d. [...] in three months' time unless otherwise indicated. [facility] Signed and Approved by: JACQUIE OLIVAS . 11/12/2021 16:27:00[facility]11-19-2018 Evaluation note* Diagnosis Onset Date Resolution Status PSVT (paroxysmal supraventricular tachyc ardia) acuteHeart failure with improved ejection fraction (HFimpEF)acuteNonischemic cardiomyopathyacuteOrthostatic hypotensionMay 29, 2018acuteAnemiaacute Essential hypertensionacuteGAD (generalized anxiety disorder)acuteHeart failure with improved ejection fraction (HFimpEF)acuteNonischemic cardiomyopathyacute Preop exam for internal medicineacutePSVT (paroxysmal supraventricular tachycardia)[facility] Work Phone: 1(578) 308-724411-19-2018 Evaluation note* Diagnosis Onset Date Resolution Status Heart failure with improved ejection fra ction (HFimpEF) acuteNonischemic cardiomyopathyacuteOrthostatic hypotensionMay 29, 2018 acuteAnemiaacuteEssential hypertensionacuteGAD (generalized anxiety disorder) acuteHeart failure with improved ejection fraction (HFimpEF)acuteNonischemic cardiomyopathyacutePreop exam for internal medicineacutePSVT (paroxysmal supraventricular tachycardia)acuteRheumatoid arthritisMiddletown Hospital Work Phone: Evaluation + Plan note Future Appointments Appointment Date:04/06/2023 09:30:00 AM Scheduled Provider: Location[facility] Future Appointments Appointment Date:04/06/2024 12:00:00 PM Scheduled Provider: Location:[facility] Appointment Type:Surgery FT [facility] Evaluation noteNo InformationNoCanonsburg Hospital [employer] Other Evaluation note* Diagnosis Right shoulder pain, unspecified chronicity- Primary documented in this encounter [facility] HealthcareEvaluation note* Diagnosis Onset Date Resolution Status Hypertension acuteOverweightacutePSVT (paroxysmal supraventricular tachycardia)[facility] Work Phone: Evaluation note* Diagnosis Onset Date Resolution Status Hypertension acuteOverweightacutePSVT (paroxysmal supraventricular tachycardia)acuteHeart failure with improved ejection fraction (HFimpEF)acuteNonischemic cardiomyopathy [facility] Work Phone: Evaluation note* Diagnosis Status post shoulder surgery- Primary Other postprocedural status documented in this encounter [facility] HealthcareEvaluation note* Diagnosis Onset Date Resolution Status Heart failure with improved ejection fra ction (HFimpEF) acuteNonischemic cardiomyopathyacuteEssential hypertensionacuteGAD (generalized anxiety disorder)acuteHeart failure with improved ejection fraction (HFimpEF) acuteNonischemic cardiomyopathyacutePreop exam for internal medicineacutePSVT (paroxysmal supraventricular tachycardia)acuteRheumatoid arthritisacuteEssential hypertensionacuteHigh risk medication useacuteNonischemic cardiomyopathyacute Pernicious anemiaacutePSVT (paroxysmal supraventricular tachycardia)[facility] Work Phone: Evaluation note* Diagnosis Status post shoulder surgery- Primary Other postprocedural status documented in this encounter [facility] HealthcareEvaluation note* Diagnosis Status post shoulder surgery- Primary Other postprocedural status documented in this encounter [facility] HealthcareEvaluation note* Diagnosis S/P arthroscopy of left shoulder- Primary documented in this encounter [facility] HealthcareEvaluation note* Diagnosis S/P arthroscopy of left shoulder- Primary documented in this encounter [facility] HealthcareEvaluation note* Diagnosis Complete tear of left rotator cuff, unspecified whether traumatic- Primary documented in this encounter [facility] HealthcareEvaluation noteNo assessment information availableMetrohealth [facility] Work Phone: Evaluation note* Diagnosis Hx of [...] Thumb fusedSurgical HistoryRight Index FingerSurgical HistoryRight Shoulder Zfkdytkfjaq83/2014Surgical HistoryRight Foot x 2Surgical HistoryLumbar Spine x 2Surgical HistoryCervical Spine x 2 Surgical HistoryHysterectomySurgical Historyrevision of external fixation device in L fibula, open approachSurgical Historytonsillectomy and adenoidectomy Surgical HistoryORIF, proximal fibulaSurgical [id number] History Lumbar [id number]/1992Surgical HistoryACDF C4-611/20Hospitalization HistorySee Above 24/7 Card Other History general Narrative - Reported* Type [...] Thumb fusedSurgical HistoryRight Index FingerSurgical HistoryRight Shoulder Qfjzdkpqtlc43/2014Surgical HistoryRight Foot x 2Surgical HistoryLumbar Spine x 2Surgical HistoryCervical Spine x 2 Surgical HistoryHysterectomySurgical Historyrevision of external fixation device in L fibula, open approachSurgical Historytonsillectomy and adenoidectomy Surgical HistoryORIF, proximal fibulaSurgical [id number] History Lumbar ozanmz2960/1992Surgical HistoryACDF C4-611/20Surgical HistoryRight reverse total shoulder arthroplasty03/2023Hospitalization HistorySee Above 24/7 Card Other Hospital course Narrative No data available for this section [facility] No data available for this section [facility] Dis[facility] instructionsAmbulatory Orders* Referral to Allergy/Immunology Location: None Selected [facility] Work Phone: Hospital Discharge instructionsAdditional Instructions If [...] cleared by orthopedic surgeon to take it off.[facility] Work Phone: Progress note No data available for this section [facility] for referral (narrative)No reason for referral information availableMet[facility] Work Phone: Summary Purpose Family History No [...] 2024 3:15pm Screening mammogram for breast cancer [facility] 2024 3:15pm Wellness examination August 29, 2024 [...] 2024 3:15pm Screening mammogram for breast cancer [facility] 2024 3:15pm Wellness examination August 29, 2024 [...] and content) DATE CREATED AUTHOR 12/29/2017 [facility] DATE CREATED AUTHOR AUTHOR'S ORGANIZ ATION 05/13/2020 [facility] DATE CREATED AUTHOR AUTHOR'S ORGANIZ ATION 10/15/2022 [facility] DATE CREATED AUTHOR AUTHOR'S ORGANIZ ATION 03/20/2024 [facility] DATE CREATED AUTHOR AUTHOR'S ORGANIZ ATION 04/29/2024 [facility] DATE CREATED AUTHOR AUTHOR'S ORGANIZ ATION 11/21/2024 [facility] DATE CREATED AUTHOR AUTHOR'S ORGANIZ ATION 12/11/2024 [facility] DATE CREATED AUTHOR AUTHOR'S ORGANIZ ATION 03/09/2025 [facility] DATE CREATED AUTHOR AUTHOR'S ORGANIZ ATION 05/07/2025 [facility] DATE CREATED AUTHOR AUTHOR'S ORGANIZ ATION 05/18/2025 [facility] EPIC REASON FOR VISIT (unrecogniz ed section and content) ReasonCommentsFollow-upR rev TSA 04/06/23ReasonCommentsFollow-upR shoulder pain, Rev TSA 04/06/23 poss coracoid an/or accromial fx maReasonCommentsPost-opReason KulglkswTdky-omGxhkuxYpjsxaawZteeuq-mhBvmjryUhbuffqjMurayg-upMRI NOMS 09/28/24 ReasonCommentsPain Patient Care team informatio [...] DateEnd Date John Ashby MD [address] [place] [address] [facility]12/23/22Team MemberRelationshipSpecialtyStart Date End Date John Ashby MD [address] [place] [address] PCP - GeneralInternal Medicine12/23/22 Team Status: Active [...] DateEnd Date John Ashby MD [address] [place] [phone] PCP - GeneralInternal Medicine12/23/22 Team Status: Inactive Member Role Status Dates John Ashby DO Primary Care Provide r, Attending Provider Active Start: April 17, 2024 End: April 17, 2024 Team Status: Inactive Member Role Status Dates John Ashby DO Primary Care Provide r, Attending Provider Active Start: May 09, 2024 End: May 09, 2024Team MemberRelationshipSpecialtyStart DateEnd Date John Ashby MD [address] [phone] [facility] - [facility]12/23/22Team MemberRelationshipSpecialtyStart Date End Date John Ashby MD [address] [place] [phone] [facility] - [facility]12/23/22Team MemberRelationshipSpecialtyStart Date End Date John Ashby MD [address] [place] [phone] PCP - GeneralInternal Medicine12/23/22Team MemberRelationshipSpecialtyStart Date End Date John Ashby MD [address] [place] [phone] PCP - GeneralInternal Medicine12/23/22 Team Status: Active [...] DateEnd Date John Ashby MD [address] [place] [phone] PCP - GeneralInternal Medicine12/23/22 Team Status: Active [...] MemberRelationshipSpecialtyStart Date End Date John Ashby [address] [place] [phone] PCP - GeneralInternal Pjgrlbox25/3/25 Goals (unrecognized section and content) Goals may [...] BE BASED ON THE PRIMARY CLINICAL RECORDS. [facility] [employer] [facility]. provides no warranty or guarantee of the accuracy or completeness of information in this document.
--- NOTE | 2025-06-10 13:18 | PM.CN ---
Consult Note: HPI Data of Consult Patient: known to practice within the last 3 years Consult date: 06/10/25 Requesting Physician: Nicki Plunkett MD Primary Care Provider: John Mcdaniels DO Consult Narrative Reason for consult: left shoulder pain Narrative: 65yof who presents for in office injection. continues to have left shoulder pain, so will proceed with injection. cc:: CC: Nicki Plunkett MD Review of Systems ROS Status of ROS 10 or more systems reviewed and unremarkable except as noted in history and below PFSH PFSH Medical History Neck pain ?M54.2 - Cervicalgia (ICD-10) Low back pain ?M54.50 - Low back pain, unspecified (ICD-10) Osteoarthritis ?M19.90 - Unspecified osteoarthritis, unspecified site (ICD-10) Rheumatoid arthritis ?M06.9 - Rheumatoid arthritis, unspecified (ICD-10) TMJ (dislocation of temporomandibular joint) ?S03.00XA - Dislocation of jaw, unspecified side, initial encounter (ICD-10) Heartburn ?R12 - Heartburn (ICD-10) Pleural effusion ?J90 - Pleural effusion, not elsewhere classified (ICD-10) Irregular heart beat ?I49.9 - Cardiac arrhythmia, unspecified (ICD-10) Surgical History H/O exploratory thoracotomy ?Z98.890 - Other specified postprocedural states (ICD-10) H/O cervical spine surgery ?Z98.890 - Other specified postprocedural states (ICD-10) H/O shoulder surgery ?Z98.890 - Other specified postprocedural states (ICD-10) H/O foot surgery ?Z98.890 - Other specified postprocedural states (ICD-10) H/O: hysterectomy ?Z90.710 - Acquired absence of both cervix and uterus (ICD-10) H/O hand surgery ?Z98.890 - Other specified postprocedural states (ICD-10) H/O lumbosacral spine surgery ?Z98.890 - Other specified postprocedural states (ICD-10) Social History Little interest or pleasure in doing things: not at all Feeling down, depressed, or hopeless: not at all Meds Home Medications and Allergies Home Medications ?Medication ?Instructions ?Recorded ?Confirmed ?Type bupropion HCl 150 mg tablet,12 hr 150 mg PO DAILY 12/15/22 04/29/25 History sustained-release (Wellbutrin SR) citalopram 20 mg tablet (Celexa) 20 mg PO DAILY 12/15/22 04/29/25 History leflunomide 10 mg tablet (Arava) 10 mg PO DAILY 12/15/22 04/29/25 History metoprolol succinate 25 mg 25 mg PO DAILY 12/15/22 04/29/25 History tablet,extended release 24 hr (Toprol XL) tizanidine 4 mg tablet (Zanaflex) See Rx Instructions .Route 11/24/23 04/29/25 Rx .COMPLEX PRN muscle spasticity #360 tabs pregabalin 150 mg capsule (Lyrica) 150 mg PO TID #270 caps 06/26/24 04/29/25 Rx hydrocodone 5 mg-acetaminophen 325 1 tab PO TID PRN pain #90 tabs 02/13/25 04/29/25 Rx mg tablet calcium carbonate (Calcium 600) 600 mg PO DAILY 04/29/25 04/29/25 History hydrocodone 5 mg-acetaminophen 325 1 tab PO Q6H PRN pain #10 tabs 04/29/25 Rx mg tablet ondansetron 4 mg disintegrating 4 mg PO Q6H PRN nausea and 04/29/25 Rx tablet vomiting #20 tabs hydrocodone 5 mg-acetaminophen 325 1 tab PO TID PRN pain #90 tabs 05/20/25 Rx mg tablet Allergies Allergy/AdvReac Type Severity Reaction Status Date / Time No Known Drug Allergies Allergy Verified 11/19/24 08:50 Exam Narrative Exam Narrative: Psych-alert and oriented x 3.? Attentive and appropriate, constitutionally normal, displays normal mood and affect per situation.? There are no obvious deficits in memory, reasoning, or intellect.? Skin-no obvious rashes, bruising, or erythema noted to the patient's area of pain. Extremities-upper extremities are warm with minimal edema and palpable pulses. Shoulder - tender to palpation in left shoulder. Pain elicited with abduction, external rotation of left shoulder. Coordination remains intact.? Gait remains non-antalgic. Assessment and Plan Assessment and Plan (1) Osteoarthritis of left shoulder: Qualifiers: Osteoarthritis type: primary Qualified Code(s): M19.012 - Primary osteoarthritis, left shoulder Plan 65yof who presents for in office injection. continues to have left shoulder pain, will proceed with injection. procedure: left shoulder injection medications: bupivacaine 0.25% 4cc, depomedrol 40mg I explained the details of the procedure to the patient including the risks, benefits, and alternatives.? We had an informed discussion.? The patient verbalized understanding and signed the consent form.? All questions were answered appropriately.? A time-out was performed.? After obtaining a comfortable seated position, the skin overlying the left shoulder was prepped with alcohol 3 times.? The sulcus between the head of the humerus and the acromion was identified.? The needle was inserted in a sterile manner 2 cm inferior and medial to the posterolateral corner of the acromion and was directed anteriorly toward the coracoid process. The contents of the syringe were gently injected without any resistance into the joint space after negative aspiration for blood or other bodily fluids.? The needle was removed and pressure was applied at the injection site to decrease the incidence of ecchymosis and hematoma formation.? A sterile bandage was applied.
== END 2025-06-10 11:52 | disposition home or self-care (01) ==
LOC: PM 11:51
PROVIDERS: PCP Internal Medicine; Visit Provider Anesthesiology
DX: M19.012 Primary osteoarthritis, left shoulder (principal); M05.79 Rheumatoid arthritis with rheumatoid factor of multiple sites without organ or systems involvement; Z96.611 Presence of right artificial shoulder joint
CPT/HCPCS: 20610; 36415; 80053; 83529; 85025; 85652; 86140; J0665; J1010